=== PATIENT | female | born 1965 | race Caucasian/White ===

== ENCOUNTER → 2020-12-09 | Outpatient (CLI) | payer OTHER, SELFPAY ==
[2016-09-25 09:43] VITALS: BMI 35.9
[2020-12-09 12:53] LABS: Erythrocyte Sedimentation Rate 27 mm/hr (0-30)
[2020-12-09 12:55] LABS: Absolute Lymphocyte Count 3.91 X10^3/uL (0.83-4.51); Absolute Neutrophil Count 6.6 X10^3/uL (2.0-7.7); Basophil# 0.08 X10^3/uL; Basophil% 0.7 % (0-1); Hematocrit 43.1 % (37-47); Hemoglobin 14.2 g/dL (12.0-15.0); Lymphocyte # 3.91 X10^3/ul (0.83-4.51); Mean Corp Hgb Conc 32.9 g/dL (32-36); Mean Corpuscular Hgb 30.1 pg (27.0-32.0); Mean Corpuscular Volume 91.3 fL (81-99); Mean Platelet Vol. 10.2 fl (6.2-12.0); Monocyte% 4.5 % (0-10); NRBC Flagged by Analyzer 0 % (0-5); Neutrophil # 6.61 X10^3/uL (2.7-7.7); Neutrophil % 59.1 % (47-70); Platelet Count 333 K/mm3 (150-450); RBC Distribution Width CV 11.9 % (11.6-14.6); RBC Distribution Width SD 39.3 fl (35.1-43.9); Red Blood Count 4.72 M/mm3 (4.2-5.4); White Blood Count 11.2 K/mm3 (4.4-11.0)
[2020-12-09 13:03] LABS: AST(SGOT) 57 U/L (15-37); Alanine Aminotransfer ALT/SGPT 96 U/L (13-56); Albumin, Serum 3.5 g/dL (3.2-5.0); Alkaline Phosphatase 116 U/L (45-117); Anion Gap 7 (5-15); BUN 18 mg/dL (7-18); BUN/Creat Ratio 27.3 RATIO (10-20); Calcium,Total 9.2 mg/dL (8.5-10.1); Chloride 105 mmol/L (98-107); Creatinine, Serum 0.66 mg/dL (0.55-1.02); EST Glomerular Filtration Rate 99 mL/min (>60); Est Glom Filt Rate - Afr Amer 119 mL/min (>60); Globulin 3.5 g/dL (2.2-4.2); Glucose 238 mg/dL (74-106); Potassium 4.5 mmol/L (3.5-5.1); Sodium Level 139 mmol/L (136-145)
== END | disposition home or self-care (01) ==
LOC: LABSPEC 12:10
PROVIDERS: PCP Family Medicine; Referring Provider Internal Medicine Infectious Disease; Visit Provider Internal Medicine Infectious Disease
DX: L03.115 Cellulitis of right lower limb (principal); E11.621 Type 2 diabetes mellitus with foot ulcer
CPT/HCPCS: 80053; 85025; 85652

== ENCOUNTER → 2020-12-16 | Outpatient (CLI) | payer BC, SELFPAY ==
[2016-09-25 09:43] VITALS: BMI 35.9
[2020-12-16 11:56] LABS: Erythrocyte Sedimentation Rate 20 mm/hr (0-30)
[2020-12-16 11:58] LABS: Absolute Lymphocyte Count 2.75 X10^3/uL (0.83-4.51); Absolute Neutrophil Count 4.5 X10^3/uL (2.0-7.7); Basophil# 0.09 X10^3/uL; Basophil% 1.1 % (0-1); Hemoglobin 13.7 g/dL (12.0-15.0); Lymphocyte # 2.75 X10^3/ul (0.83-4.51); Lymphocyte % 35.1 % (19-41); Mean Corp Hgb Conc 32.6 g/dL (32-36); Mean Corpuscular Hgb 30.3 pg (27.0-32.0); Mean Corpuscular Volume 92.9 fL (81-99); Mean Platelet Vol. 10.4 fl (6.2-12.0); Monocyte# 0.41 X10^3/uL; Monocyte% 5.2 % (0-10); NRBC Flagged by Analyzer 0 % (0-5); Neutrophil # 4.54 X10^3/uL (2.7-7.7); Platelet Count 294 K/mm3 (150-450); RBC Distribution Width CV 12.1 % (11.6-14.6); RBC Distribution Width SD 41.5 fl (35.1-43.9); Red Blood Count 4.52 M/mm3 (4.2-5.4); White Blood Count 7.8 K/mm3 (4.4-11.0)
[2020-12-16 13:11] LABS: AST(SGOT) 46 U/L (15-37); Alanine Aminotransfer ALT/SGPT 75 U/L (13-56); Albumin, Serum 3.5 g/dL (3.2-5.0); Alkaline Phosphatase 92 U/L (45-117); Anion Gap 9 (5-15); BUN 23 mg/dL (7-18); BUN/Creat Ratio 42.7 RATIO (10-20); Calcium,Total 9.1 mg/dL (8.5-10.1); Chloride 104 mmol/L (98-107); Creatinine, Serum 0.54 mg/dL (0.55-1.02); EST Glomerular Filtration Rate 124 mL/min (>60); Est Glom Filt Rate - Afr Amer 151 mL/min (>60); Globulin 3.4 g/dL (2.2-4.2); Glucose 308 mg/dL (74-106); Potassium 4.4 mmol/L (3.5-5.1); Protein, Total 6.9 g/dL (6.4-8.2); Sodium Level 137 mmol/L (136-145)
== END | disposition home or self-care (01) ==
LOC: LABSPEC 11:44
PROVIDERS: PCP Family Medicine; Referring Provider Internal Medicine Infectious Disease; Visit Provider Internal Medicine Infectious Disease
DX: L03.115 Cellulitis of right lower limb (principal); E11.621 Type 2 diabetes mellitus with foot ulcer; L97.509 Non-pressure chronic ulcer of other part of unspecified foot with unspecified severity
CPT/HCPCS: 80053; 85025; 85652

== ENCOUNTER → 2020-12-23 | Outpatient (CLI) | payer BC, SELFPAY ==
[2016-09-25 09:43] VITALS: BMI 35.9
[2020-12-23 14:58] LABS: Absolute Lymphocyte Count 3.09 X10^3/uL (0.83-4.51); Absolute Neutrophil Count 5.4 X10^3/uL (2.0-7.7); Basophil# 0.08 X10^3/uL; Basophil% 0.9 % (0-1); Eosinophil# 0.04 X10^3/uL; Eosinophils% 0.4 % (0-5); Hematocrit 43.2 % (37-47); Hemoglobin 14.3 g/dL (12.0-15.0); Lymphocyte # 3.09 X10^3/ul (0.83-4.51); Lymphocyte % 33.8 % (19-41); Mean Corp Hgb Conc 33.1 g/dL (32-36); Mean Corpuscular Hgb 30.6 pg (27.0-32.0); Mean Corpuscular Volume 92.5 fL (81-99); Mean Platelet Vol. 10.7 fl (6.2-12.0); Monocyte# 0.49 X10^3/uL; Monocyte% 5.4 % (0-10); NRBC Flagged by Analyzer 0 % (0-5); Neutrophil # 5.41 X10^3/uL (2.7-7.7); Neutrophil % 59.1 % (47-70); Platelet Count 300 K/mm3 (150-450); RBC Distribution Width CV 12.4 % (11.6-14.6); RBC Distribution Width SD 41.7 fl (35.1-43.9); Red Blood Count 4.67 M/mm3 (4.2-5.4); White Blood Count 9.2 K/mm3 (4.4-11.0)
[2020-12-23 15:03] LABS: Erythrocyte Sedimentation Rate 22 mm/hr (0-30)
[2020-12-23 15:14] LABS: ALB/GLOB Ratio 1.1 RATIO (0.9-2.4); AST(SGOT) 33 U/L (15-37); Alanine Aminotransfer ALT/SGPT 68 U/L (13-56); Albumin, Serum 3.7 g/dL (3.2-5.0); Alkaline Phosphatase 94 U/L (45-117); Anion Gap 8 (5-15); BUN 23 mg/dL (7-18); BUN/Creat Ratio 38.9 RATIO (10-20); Calcium,Total 9.5 mg/dL (8.5-10.1); Chloride 105 mmol/L (98-107); Creatinine, Serum 0.59 mg/dL (0.55-1.02); EST Glomerular Filtration Rate 112 mL/min (>60); Est Glom Filt Rate - Afr Amer 135 mL/min (>60); Globulin 3.4 g/dL (2.2-4.2); Glucose 224 mg/dL (74-106); Potassium 4.3 mmol/L (3.5-5.1); Protein, Total 7.1 g/dL (6.4-8.2); Sodium Level 139 mmol/L (136-145)
== END | disposition home or self-care (01) ==
LOC: LABSPEC 14:07
PROVIDERS: PCP Family Medicine; Referring Provider Internal Medicine Infectious Disease; Visit Provider Internal Medicine Infectious Disease
DX: L03.115 Cellulitis of right lower limb (principal); E11.621 Type 2 diabetes mellitus with foot ulcer; L97.509 Non-pressure chronic ulcer of other part of unspecified foot with unspecified severity
CPT/HCPCS: 80053; 85025; 85652

== ENCOUNTER 2021-01-08 08:30 | Outpatient (RCR) | payer BC, SELFPAY ==
[2021-01-01 09:18] VITALS: BP 118/68; PULSE 94; RESP 18; TEMP 36.8
--- NOTE | 2021-01-01 09:56 | HP.PCM_ITS ---
History of Present Illness Date of Service: 01/01/21 Chief Complaint: right foot ulcer History of Wound: This 55-year-old female presents for care of right foot wound. She had surgery at [facility] in November 2020. She denies current fever, chill, nausea, vomiting. She denies delays in wound care and has been applying saline wet-to-dry to help with home health. She relates her bone biopsy that was obtained during her foot surgery was negative for osteomyelitis. She has a PICC placed and saw infectious disease specialist, Dr. Paez at [facility]. She relates she is almost complete with her IV antibiotic course. She is offloading with a surgical shoe. She takes nutritional supplementation including vitamin D and B. She denies claudication. She does have rest paresthesias. She is diabetic with an A1c of over 8%. She also has history of back injuries. Medical records reviewed from and it is noted she had right foot incision and drainage of fifth metatarsal on 12-04-20. Her surgeon was Dr. Blanchard. She is advised wearing AFO brace. It is noted she started on Bactrim and then after the surgery she was placed on IV antibiotics. Medical records including microbiology and labs and pathology results will also be requested. Allergies: Clindamycin Medications cyclo-Benzapril, NuvaRing, Advil, Cytomel, [place], armodafinil, Singulair, Synthroid, Lyrica Past medical history: diabetes and history of back surgery, ankle surgery, right knee arthroscopy Social history: former smoker and no current tobacco use; quit in 1981 Progress of Wound: Stable [facility] Home Medications Levocetirizine Dihydrochloride [Xyzal] 5 mg PO DAILY 09/25/16 [History Last Taken Unknown] armodafinil 150 mg PO BID 09/25/16 [History Last Taken Unknown] etonogestrel-ethinyl estradiol [Nuvaring Vaginal Ring] 1 ea VAGINALLY QWEEK 09/25/16 [History Last Taken Unknown] levothyroxine 150 mcg PO DAILY 09/25/16 [History Last Taken Unknown] liothyronine 25 mg PO DAILY 09/25/16 [History Last Taken Unknown] montelukast [Singulair] 10 mg PO DAILY 09/25/16 [History Last Taken Unknown] baclofen 10 mg PO TID 01/01/21 [History Last Taken Unknown] fluticasone propionate [Flonase] 1 spray INTRANASAL BID 01/01/21 [History Last Taken Unknown] Allergy/AdvReac Type Severity Reaction Status Date / Time clindamycin Allergy Hives Verified 01/01/21 09:32 pregabalin [From Lyrica] Allergy Swelling Verified 01/01/21 09:32 bee venom protein (honey bee) AdvReac Anaphylaxis Verified 01/01/21 09:32 Social History Smoking Status: Former smoker ROS Constitutional Constitutional: Denies fatigue or fever(s) Cardiovascular Cardiovascular: Reports numbness in extremities; Denies erythema on extremities, nausea or vomiting Gastrointestinal Gastrointestinal: Denies nausea or vomiting Musculoskeletal Musculoskeletal: Denies tingling Integumentary Integumentary: Reports skin ulcer Neurologic Neurologic: Reports numbness, paresthesias and radicular pain Hematologic/Lymphatic Hematologic/Lymphatic: Denies easy bleeding Vital Signs Vital Signs Vital Signs: 01/01/21 09:18 Temperature 98.2 F Temperature Source Temporal Pulse Rate 94 Respiratory Rate 18 Blood Pressure 118/68 Blood Pressure Mean 84 Blood Pressure Source Monitor Physical Exam Const alert and oriented x3 General Appearance: cooperative HEENT normocephalic Extremity Extremity Narrative: No calf tenderness Diminished pulses dp and palpable pt but present Capillary fill time less than 3 seconds to all digits bilateral Muscle wasting noted Active range of motion digits right foot with varus rotation of lesser lateral toes General Extremity: edema and no tenderness to palpation of joints or extremities; Negative for cyanosis Skin Skin Narrative: no purulence, no streaking, no odor, no infection, no erythema right foot. Skin is atrophic adjacent to the ulcer which has 100% granular base with no probing to deep tissue. No eschar. No bogginess or fluctuance on palpation. General Skin Exam: Negative for erythema Neuro Neuro Narrative: lack of normal epicritic sensation via light touch is consistent with neuropathy status Psych cooperative and affect normal Debridement Note Debridement Note Post-Debridement Measurements and Additional Note: Post-Debridement Measurements/Treatment WC - Nurse 1 - General Ulcer Assessment Start: 01/01/21 09:18 Freq: Status: Active Protocol: RUKHSANA Activity Type Activity Date Activity User E-Sign Co-Sign Detail Recorded Client Recorded Date Recorded By Document 01/01/21 09:18 DL [id number] 01/01/21 09:26 DL 01/01/21 09:18 - Today's Visit Information Type of service Follow-up Visit (Physician/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 ) Arrival Mode Ambulatory Transfer Assistance None Patient Identification Verified (Name & Yes ) Patient Requires Transmission-Based No Precautions Vital Signs Temperature (97.8 F-99.1 F) 98.2 F Temperature Source Temporal Pulse Rate (60-100) 94 Pulse Location Monitor Respiratory Rate (12-18) 18 Respiratory rate source Observation Blood Pressure (90/60-120/80) 118/68 Blood Pressure Mean 84 Source Monitor History Since Last Visit- (Skip if this is Patient's initial visit) Left Footwear Regular Shoe Right Footwear Surgical Shoe with pressure relief insole Pain Scale: 0-10 Numeric Is Patient Pain Free? Yes Communication Assessment Preferred language Syrian Oil Pumper Required No Able to Read Yes Able to Write Yes Communication Tools None Right Hearing Abillity Normal Left Hearing Abillity Normal Visual Assistive Devices None Teaching Assessment Preferences Verbal,Written, Demonstration Barriers to Learning None Readiness To Learn Good Willingness to Engage in Self Management High Activies Readiness to Engage in Self Management High Activities Anxiety Level Calm Cooperation Cooperative Perception Coherent Interest in Health Problem Asks Questions Education Importance Acknowledges Need Does Patient Smoke tobacco or other No substances Smoking Status Former smoker Is Patient Diabetic Yes Functional Assessment Recent Decline in Ability to Perform Denies Any Declines Culture/Lutheran/Elementary Instructional Coach Cultural/Lutheran Needs that may affect No Treatment Plan Would you allow our hospital child day care center worker to No meet you for the purpose of spiritual/ emotional support? Elementary Instructional Coach to contact place of religious No Teaching: Wound Center Dressing Your Wound -Person Taught Patient Discharge Instructions -Person Taught Patient *Welcome to the Wound Center -Person Taught Patient - Nurse 1 - General Ulcer Measurement Start: 01/01/21 09:18 Freq: Status: Active Protocol: Activity Type Activity Date Activity User E-Sign Co-Sign Detail Recorded Client Recorded Date Recorded By Document 01/01/21 09:18 DL [id number] 01/01/21 09:26 DL 01/01/21 09:18 Wound Center Nurse 1 #1 R Lat Foot -Current Size (cm) - Length 0.8 -Current Size (cm) - Width 0.8 -Current Size (cm) - Depth 2 -Total Square Cm 0.64 -Photo Taken Yes -Classification - Thickness Full Thickness without Exposed Support Structure -Exudate Amt Small -Exudate Type Serosanguineous -Wound Margin Distinct, Outline Attached -Granulation Amt Large (67-100%) -Granulation Quality Red -Necrosis Amt None Present (0 %) -Structure Exposed N/A -Texture (Marie-wound Skin Appearance) Scarring -Moisture (Marie-wound Skin Appearance) No Abnormality -Color (Marie-wound Skin Appearance) No Abnormality -Temperature (Marie-wound Skin No Abnormality Appearance) (Pt Warm) -Tenderness on Palpation (Marie-wound No Skin Appearance) -Ulcer Cleansing Wound Cleanser -Foul Odor after Cleansing No -Anesthetic Used 5% Lidocaine Gel WC - Nurse 2 - General Ulcer CM Notes Start: 01/01/21 09:18 Freq: Status: Active Protocol: Activity Type Activity Date Activity User E-Sign Co-Sign Detail Recorded Client Recorded Date Recorded By Document 01/01/21 09:39 NATY [id number] 01/01/21 09:47 JF 01/01/21 09:39 Wound Center Nurse 2 -Time 09:39 -Correct Patient Yes -Correct Side, Site, Position Yes -Correct Procedure Yes -Procedure Performed Yes -Type of Procedure Incision & Drainage -Clinical Debridement Subcutaneous -Tissue Removed Subcutaneous -Post Debridement (cm) - Length 0.9 -Post Debridement (cm) - Width 0.8 -Post Debridement (cm) - Depth 0.2 -Total Square (Post) (cm) 0.72 -Area of Debridement (cm) - Length 0.9 -Area of Debridement (cm) - Width 0.8 -Total Square (Area) (cm) 0.72 -Tunneling No -Undermining/Tunneling No -Circular Undermining No -Wound/Ulcer Outcome Not Healed -Ulcer Cleansing Rinsed/ Irrigated with Saline -Foul Odor after Cleansing No -Bioengineered Tissue No -Bleeding Controlled with Pressure -Offloading Yes -Type of Offloading Surgical Shoe -Treatment Response Procedure Tolerated Well -Debridement - Subq, 1st 20sq cm Yes Pain Scale: 0-10 Numeric Is Patient Pain Free? Yes Wound debrided: right foot Wound Grade/Stage: Type of Debridement: Excisional debridement Anesthesia Used: 4% Lidocaine Solution Depth: in the subcutaneous layer Percentage of wound debrided: 100 Instrument Used: #15 blade Tissue Removed: fibrous, devitalized subcutaneous, biofilm, slough Severity: Fat Layer Exposed Amount of bleeding with debridement: Mild Bleeding Controlled with: Pressure Patient tolerated procedure: Patient tolerated procedure well Assessment/Plan Assessment/Plan (1) 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: CODE(S): L97.512 - 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 (2) Type 2 diabetes mellitus with diabetic polyneuropathy: CODE(S): E11.42 - Type 2 diabetes mellitus with diabetic polyneuropathy (3) Malnutrition: CODE(S): E46 - Unspecified protein-calorie malnutrition PLAN: I reviewed and discussed his case today. Debridement was performed today as noted in the clinical panel to all of the ulcer sites. The following work up and care recommendations were made: Dressing: To change daily with Aquacel Ag covered with gauze Wash: Soap and water Offload: Continue surgical shoe use and avoid tight strap placement over the ulcer Vascular: She appears to be healing well so far. In the upcoming weeks if she demonstrates any delays in healing a noninvasive vascular study will be ordered Edema: She does not have lower extremity edema at this time Infection: She was reassured there are no clinical or systemic signs of infec tion noted today. It is noted she is completing a PICC line course of IV antibiotics per infectious disease specialist management, Dr. Paez. To complete as advised. Medical records reviewed from [facility] as well. Pain: Controlled Host factors: Her A1c levels over 8%. To optimize glucose management through diet exercise and medications under the management of her primary care physician to optimize healing and to prevent future illness. I recommend nutritional supplementation Chas to optimize healing. Imaging: Foot x-ray was ordered today Labs: CBC, CMP, hemoglobin A1c, ESR, C-reactive protein ordered and results pending I answered all the patient's questions. To return to the wound healing center in 1 week or call sooner if the patient has any questions or concerns. The medical decision making level is limited based on data including the review of prior external notes, review of a prior test, or ordering a test. 30 minutes was spent on this encounter. This included face to face and non face to face care including preparing for the visit, reviewing the history, performing the exam, counseling and providing education to the patient, family, or caregiver, ordering medications/test/ procedures if indicated as documented, communicating with other healthcare providers, documenting information in the medical record, interpreting / sharing this information when indicated as documented, and care coordination.
[2021-01-08 08:33] VITALS: BP 130/71; PULSE 80; RESP 16; TEMP 35.9
--- NOTE | 2021-01-08 09:17 | PCM.WC.PN ---
History of Present Illness Date of Service: 01/08/21 Chief Complaint: right foot ulcer History of Wound: This 55-year-old female presents for care of right foot wound. She had surgery at [facility] in November 2020. She denies current fever, chill, nausea, vomiting. She denies delays in wound care and has been applying saline wet-to-dry to help with home health. She relates her bone biopsy that was obtained during her foot surgery was negative for osteomyelitis. She has a PICC placed and saw infectious disease specialist, Dr. Paez at [facility]. She relates she is almost complete with her IV antibiotic course. She is offloading with a surgical shoe. She takes nutritional supplementation including vitamin D and B. She denies claudication. She does have rest paresthesias. She is diabetic with an A1c of over 8%. She also has history of back injuries. Since her last visit, she reports she had thick fluid squirting out of the wound with application of her silver dressing. She was concerned it was infected and called in yesterday. She is advised by nursing staff to go to the emergency room if she thought she had a rapid onset infection. She relates she is scheduled to see her surgeon tomorrow. She did not obtain the previously ordered labs and foot x-rays. She denies current redness or odor. Medical records reviewed from and it is noted she had right foot incision and drainage of fifth metatarsal on 12-04-20. Her surgeon was Dr. Blanchard. She is advised wearing AFO brace. It is noted she started on Bactrim and then after the surgery she was placed on IV antibiotics. Medical records including microbiology and labs and pathology results will also be requested. Allergies: Clindamycin Medications cyclo-Benzapril, NuvaRing, Advil, Cytomel, Hasty, armodafinil, Singulair, Synthroid, Lyrica Past medical history: diabetes and history of back surgery, ankle surgery, right knee arthroscopy Social history: former smoker and no current tobacco use; quit in 1981 Progress of Wound: Stable Objective Data Objective Data Vital Signs: Vital Signs Temp Pulse Resp BP 96.6 F L 80 16 130/71 H 01/08/21 08:33 01/08/21 08:33 01/08/21 08:33 01/08/21 08:33 Oxygen Delivery Method Room Air Physical Exam Const alert and oriented x3 General Appearance: cooperative HEENT normocephalic Extremity Extremity Narrative: No calf tenderness Diminished pulses dp and palpable pt but present Capillary fill time less than 3 seconds to all digits bilateral Muscle wasting noted Active range of motion digits right foot with varus rotation of lesser lateral toes General Extremity: edema and no tenderness to palpation of joints or extremities; Negative for cyanosis Skin Skin Narrative: no purulence, no streaking, no odor, no infection, no erythema right foot. Skin is atrophic adjacent to the ulcer which has 100% granular base with probing to deep tissue. No eschar. No bogginess or fluctuance on palpation. There is skin peeling peripherally. Adjacent skin is hairless and atrophic. General Skin Exam: Negative for erythema Neuro Neuro Narrative: lack of normal epicritic sensation via light touch is consistent with neuropathy status Psych cooperative and affect normal Debridement Note Debridement Note Post-Debridement Measurements and Additional Note: Post-Debridement Measurements/Treatment - Nurse 1 - General Ulcer Assessment Start: 01/01/21 09:18 Freq: Status: Active Protocol: RUKHSANA Activity Type Activity Date Activity User E-Sign Co-Sign Detail Recorded Client Recorded Date Recorded By Document 01/01/21 09:18 DL [id number] 01/01/21 09:26 DL Document 01/08/21 08:33 [facility] [id number] 01/08/21 08:39 [facility] 01/01/21 01/08/21 09:18 08:33 - Today's Visit Information Type of service Follow-up Visit Follow-up Visit (Physician/AIRLINE STATION AGENT (Physician/AIRLINE STATION AGENT ) ) Arrival Mode Ambulatory Ambulatory Transfer Assistance None None Patient Identification Verified (Name & Yes Yes ) Patient Requires Transmission-Based No No Precautions Finger Stick Blood Sugar(mg/dl) (if 281 indicated): Blood Sugar Stated by Patient Vital Signs Temperature (97.8 F-99.1 F) 98.2 F 96.6 F L Temperature Source Temporal Temporal Pulse Rate (60-100) 94 80 Pulse Location Monitor Monitor Respiratory Rate (12-18) 18 16 Respiratory rate source Observation Observation Oxygen Delivery Method Room Air Blood Pressure (90/60-120/80) 118/68 130/71 H Blood Pressure Mean (mm Hg) 84 90 Source Monitor Monitor Position Sitting Blood Pressure Location Left Arm Have you changed medications since your No last visit? Any new allergies or adverse reactions No Had a fall/change in ADL's that may No increase risk of falls Signs or symptoms of abuse and/or No neglect since last visit Have you been in the hospital since your No last visit? Has dressing in place as prescribed Yes Has compression in place as prescribed N/A Has offloadiing in place as prescribed Yes Experienced any changes in pain level or No management History Since Last Visit- (Skip if this is Patient's initial visit) Left Footwear Regular Shoe Regular Shoe Right Footwear Surgical Shoe Regular Shoe with pressure relief insole Pain Scale: 0-10 Numeric Is Patient Pain Free? Yes Yes Communication Assessment Preferred language Kyrgyz Testing Projects Administrator Required No Able to Read Yes Able to Write Yes Communication Tools None Right Hearing Abillity Normal Left Hearing Abillity Normal Visual Assistive Devices None Teaching Assessment Preferences Verbal,Written, Demonstration Barriers to Learning None Readiness To Learn Good Willingness to Engage in Self Management High Activies Readiness to Engage in Self Management High Activities Anxiety Level Calm Cooperation Cooperative Perception Coherent Interest in Health Problem Asks Questions Education Importance Acknowledges Need Does Patient Smoke tobacco or other No substances Smoking Status Former smoker Is Patient Diabetic Yes Functional Assessment Recent Decline in Ability to Perform Denies Any Declines Culture/Mosque/Earth Burner Cultural/Mosque Needs that may affect No Treatment Plan Would you allow our hospital crude oil treater to No meet you for the purpose of spiritual/ emotional support? Earth Burner to contact place of lutheran No Teaching: Wound Center Dressing Your Wound -Person Taught Patient Discharge Instructions -Person Taught Patient *Welcome to the Wound Center -Person Taught Patient WC - Nurse 1 - General Ulcer Measurement Start: 01/01/21 09:18 Freq: Status: Active Protocol: Activity Type Activity Date Activity User E-Sign Co-Sign Detail Recorded Client Recorded Date Recorded By Document 01/01/21 09:18 DL [id number] 01/01/21 09:26 DL Document 01/08/21 08:33 [facility] [id number] 01/08/21 08:39 [facility] 01/01/21 01/08/21 09:18 08:33 Wound Center Nurse 1 #1 R Lat Foot -Combined with other wound No -Current Size (cm) - Length 0.8 0.4 -Current Size (cm) - Width 0.8 0.9 -Current Size (cm) - Depth 2 0.3 -Total Square Cm 0.64 0.36 -Photo Taken Yes No -Epithelialization None Present -Tunneling No -Undermining/Tunneling Yes -Undermining/Tunneling Starts (O'clock 3 ) -Undermining/Tunneling Ends (O'clock) 7 -Maximum Distance (cm) 0.5 -Circular Undermining No -Classification - Thickness Full Thickness without Exposed Support Structure -Exudate Amt Small Small -Exudate Type Serosanguineous Purulent -Wound Margin Distinct, Distinct, Outline Outline Attached Attached -Granulation Amt Large (67-100%) Large (67-100%) -Granulation Quality Red Red -Slough/Fibrin Yes -Necrosis Amt None Present (0 Small (1-33%) %) -Necrotic Tissue Type Adherent Slough -Structure Exposed N/A -Texture (Marie-wound Skin Appearance) Scarring Assessed, Scarring -Moisture (Marie-wound Skin Appearance) No Abnormality Assessed -Color (Marie-wound Skin Appearance) No Abnormality Assessed, Erythema -Temperature (Marie-wound Skin No Abnormality No Abnormality Appearance) (Pt Warm) (Pt Warm) -Tenderness on Palpation (Marie-wound No No Skin Appearance) -Ulcer Cleansing Wound Cleanser Rinsed/ Irrigated with Saline -Foul Odor after Cleansing No No -Anesthetic Used 5% Lidocaine 5% Lidocaine Gel Gel WC - Nurse 2 - General Ulcer CM Notes Start: 01/01/21 09:18 Freq: Status: Active Protocol: Activity Type Activity Date Activity User E-Sign Co-Sign Detail Recorded Client Recorded Date Recorded By Document 01/01/21 09:39 [facility] [id number] 01/01/21 09:47 NAT[facility] 01/01/21 09:39 Wound Center Nurse 2 -Time 09:39 -Correct Patient Yes -Correct Side, Site, Position Yes -Correct Procedure Yes -Procedure Performed Yes -Type of Procedure Incision & Drainage -Clinical Debridement Subcutaneous -Tissue Removed Subcutaneous -Post Debridement (cm) - Length 0.9 -Post Debridement (cm) - Width 0.8 -Post Debridement (cm) - Depth 0.2 -Total Square (Post) (cm) 0.72 -Area of Debridement (cm) - Length 0.9 -Area of Debridement (cm) - Width 0.8 -Total Square (Area) (cm) 0.72 -Tunneling No -Undermining/Tunneling No -Circular Undermining No -Wound/Ulcer Outcome Not Healed -Ulcer Cleansing Rinsed/ Irrigated with Saline -Foul Odor after Cleansing No -Bioengineered Tissue No -Bleeding Controlled with Pressure -Offloading Yes -Type of Offloading Surgical Shoe -Treatment Response Procedure Tolerated Well -Debridement - Subq, 1st 20sq cm Yes Pain Scale: 0-10 Numeric Is Patient Pain Free? Yes - Nurse 3 - General Ulcer D/C NN Start: 01/01/21 09:18 Freq: Status: Active Protocol: Activity Type Activity Date Activity User E-Sign Co-Sign Detail Recorded Client Recorded Date Recorded By Document 01/01/21 10:40 [id number] 01/01/21 10:40 Document 01/08/21 09:01 [facility] [id number] 01/08/21 09:02 [facility] 01/01/21 01/08/21 10:40 09:01 Wound Care Nurse 3 #1 R Lat Foot -Ulcer Cleansing Rinsed/ Rinsed/ Irrigated with Irrigated with Saline Saline -Foul Odor after Cleansing No No -Primary Dressing Applied Aquacel AG 4x4 Aquacel AG 2x2 -Primary Dressing Covered/Secured with Dry Gauze & Dry Gauze & Roll Gauze, Roll Gauze, Secured with Secured with Tape Tape -Other Covering drsg per jn jameson rn -Aquacel AG 4x4 1 -Aquacel AG 2x2 1 Treatment Response Procedure Tolerated Well Pain Scale: 0-10 Numeric Is Patient Pain Free? Yes Yes - Visit Discharge Discharge Condition Stable Stable Ambulatory Status Ambulatory Ambulatory Transportation Private Auto Private Auto Medication Reconcilliation completed & Yes provided to patient/care provider Clinical Summary of Care Provided Yes Wound debrided: lateral right foot Wound Grade/Stage: Type of Debridement: Excisional debridement Anesthesia Used: 4% Lidocaine Solution Depth: in the subcutaneous layer Percentage of wound debrided: 100 Instrument Used: #15 blade Tissue Removed: fibrous, devitalized subcutaneous, biofilm, slough Severity: Fat Layer Exposed Amount of bleeding with debridement: Mild Bleeding Controlled with: Pressure Patient tolerated procedure: Patient tolerated procedure well Assessment/Plan Assessment/Plan (1) 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: CODE(S): L97.512 - 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 (2) Type 2 diabetes mellitus with diabetic polyneuropathy: CODE(S): E11.42 - Type 2 diabetes mellitus with diabetic polyneuropathy (3) Malnutrition: CODE(S): E46 - Unspecified protein-calorie malnutrition (4) Cellulitis of right lower limb: CODE(S): L03.115 - Cellulitis of right lower limb PLAN: I reviewed and discussed her case today today. Debridement was performed today as noted in the clinical panel to the ulcer site. The following work up and care recommendations were made: Dressing: To change daily with Aquacel Ag covered with gauze Wash: Soap and water Offload: Continue surgical shoe use and avoid tight strap placement over the ulcer Vascular: She appears to be healing well so far. In the upcoming weeks if she demonstrates any delays in healing a noninvasive vascular study will be ordered. Edema: She does not have lower extremity edema at this time Infection: She was reassured there are no clinical or systemic signs of infection noted today. However her concern of increased thick drainage with wound anteriorization is a concern. A culture was obtained today and sent for aerobic, anaerobic, and MRSA PCR. It is noted she is completing a PICC line course of IV antibiotics per infectious disease specialist management, Dr. Paez. To complete as advised. Medical records reviewed from [facility] as well. Pain: Controlled Host factors: Her A1c levels over 8%. To optimize glucose management through diet exercise and medications under the management of her primary care physician to optimize healing and to prevent future illness. I recommend nutritional supplementation Chas to optimize healing. Imaging: Foot x-ray was ordered previously and she was advised to update this. She plans to get an updated foot x-ray when she follows up with her surgeon tomorrow and that sounds reasonable. Labs: CBC, CMP, hemoglobin A1c, ESR, C-reactive protein ordered and results pending. It is noted she did not obtain this yet and she was advised to do so today. I answered all the patient's questions. To return to the wound healing center in 1 week or call sooner if the patient has any questions or concerns. She plans to follow-up with her surgeon tomorrow and this note will be sent for communication purposes as well. The medical decision making level is limited based on data including the review of prior external notes, review of a prior test, or ordering a test. 20 minutes was spent on this encounter. This included face to face and non face to face care including preparing for the visit, reviewing the history, performing the exam, counseling and providing education to the patient, family, or caregiver, ordering medications/test/ procedures if indicated as documented, communicating with other healthcare providers, documenting information in the medical record, interpreting / sharing this information when indicated as documented, and care coordination.
[2021-01-08 12:48] LABS: M R Staph aureus DNA By PCR POSITIVE (Negative)
[2021-01-08 12:49] LABS: Probe Check PASS; Staph aureus DNA By PCR POSITIVE (Negative)
== END 2021-01-21 23:59 ==
LOC: WC 08:30
PROVIDERS: PCP Family Medicine; Visit Provider Podiatrist
DX: E11.621 Type 2 diabetes mellitus with foot ulcer (principal); L97.512 Non-pressure chronic 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; Z87.891 Personal history of nicotine dependence; E11.42 Type 2 diabetes mellitus with diabetic polyneuropathy; L03.115 Cellulitis of right lower limb
CPT/HCPCS: 11042; 87070; 87075; 87077; 87186; 87205; 87640; 99213; G0463

== ENCOUNTER 2021-05-20 17:06 | Inpatient (IN) | payer BC, MEDICAID, SELFPAY ==
[2021-05-20] VITALS (10 sets, daily range): BP systolic 110–140; BP diastolic 53–90; PULSE 100–116; RESP 15–28; TEMP 36.1–37.7; O2SAT 96–98; BMI 27.2; BMI 28.8
--- NOTE | 2021-05-20 18:30 | RAD_ITS ---
STUDY: X-RAY CHEST REASON FOR EXAM: Female, 55 years old. cough TECHNIQUE: Single AP portable view of the chest. COMPARISON: None. FINDINGS: The lungs are clear and expanded. There is no demonstrated pleural abnormality. Normal size heart. Normal mediastinum and yolanda. Normal visualized pulmonary arteries. Normal visualized aortic arch and descending thoracic aorta. There are diffuse degenerative changes of the visualized thoracic spine. Normal visualized ribs, clavicles, and shoulders. There is no demonstrated abnormality of the visualized soft tissue structures of the upper abdomen. RAD/Chest 1 View (Portable) IMPRESSION: Degenerative changes, as described above. No demonstrated acute cardiopulmonary process. Electronically Signed: Erick Boston MD at 19:58 EST , Service support ,
--- NOTE | 2021-05-20 18:30 | EKG12_ITS ---
Test Reason : DYSRHYTHMIA Blood Pressure : / mmHG Vent. Rate : 110 BPM Atrial Rate : 110 BPM P-R Int : 154 ms QRS Dur : 104 ms QT Int : 376 ms P-R-T Axes : 047 009 070 degrees QTc Int : 508 ms Sinus tachycardia with frequent Premature ventricular complexes ST & T wave abnormality, consider inferior ischemia Abnormal ECG Confirmed by ANA GUZMAN, RAMSEY ([id number]), food editor PARVIN LOWE ([id number]) on 05/22/2021 8:50:36 AM Referred By: DANY Confirmed By:RAMSEY PEREZ MD
--- NOTE | 2021-05-20 18:31 | RAD_ITS ---
STUDY: X-RAY - RIGHT FOOT CLINICAL: Female, 55 years old. pain, infection TECHNIQUE: 3 view(s) of the foot. COMPARISON: None. FINDINGS: Mild to moderate degenerative arthrosis noted in the first MTP and at the calcaneocuboid and navicular articulations. Cortical plate-screw construct of the distal one third fibula noted. No visualized acute fracture. No evidence of active osteomyelitis. The bony structures are demineralized. The lateral aspect of the head of the fifth metatarsal bone is absent but the margins are corticated indicating a chronic process. Normal talus, calcaneus, and tarsal bones. Normal visualized subtalar, talonavicular, calcaneocuboid, tarsal and tarsometatarsal articulations. Moderate soft tissue swelling is present in the lower leg and foot. RAD/Foot min 3 Views IMPRESSION: Moderate soft tissue swelling Electronically Signed: Erick Boston MD at 19:57 EST , Service support ,
--- NOTE | 2021-05-20 18:32 | EX.ED.DYSGE1 ---
HPI History of Present Illness Chief Complaint: Weakness Detail of Chief Complaint: Generalized weakness Informant: patient Narrative Narrative: Patient presents the emergency department complaint of generalized weakness that started over the last several days since she is developed Covid. Patient states that she has had Covid symptoms for about 10 days. 3 days ago patient noticed increased swelling and redness to her right foot. She has had an ulceration to the great toe of the right foot for several months. 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 Patient also states that her blood sugars have been elevated over 400 despite not eating very much. Patient has been drinking fluids. She denies fever. Prior similar symptoms: No PFSH PFSH Home Medications Levocetirizine Dihydrochloride [Xyzal] 5 mg PO DAILY 09/25/16 [History Last Taken Unknown] armodafinil 150 mg PO BID 09/25/16 [History Last Taken Unknown] etonogestrel-ethinyl estradiol [Nuvaring Vaginal Ring] 1 ea VAGINALLY QWEEK 09/25/16 [History Last Taken Unknown] levothyroxine 150 mcg PO DAILY 09/25/16 [History Last Taken Unknown] liothyronine 25 mg PO DAILY 09/25/16 [History Last Taken Unknown] montelukast [Singulair] 10 mg PO DAILY 09/25/16 [History Last Taken Unknown] baclofen 10 mg PO TID 01/01/21 [History Last Taken Unknown] fluticasone propionate [Flonase] 1 spray INTRANASAL BID 01/01/21 [History Last Taken Unknown] Allergy/AdvReac Type Severity Reaction Status Date / Time clindamycin Allergy Hives Verified 05/20/21 17:09 pregabalin [From Lyrica] Allergy Swelling Verified 05/20/21 17:09 bee venom protein (honey bee) AdvReac Anaphylaxis Verified 05/20/21 17:09 Social History Smoking Status: Former smoker ROS ROS ED Constitutional Constitutional ED: Reports systems reviewed and no addt'l complaints, except as documented; Denies body ache(s), change in weight or chills Eyes Eyes: Denies acute decrease in peripheral vision, change in vision, double vision or loss of vision ENT ENT ED: Reports none; Denies ear pain, lip swelling, loss taste/smell, neck pain, otalgia or sore throat Cardiovascular Cardiovascular: Reports none; Denies abdominal pain, chest pain with activity, leg edema, lightheadedness, palpitations, rapid heart rate or syncope Respiratory/Chest Respiratory/Chest: Reports none and cough; Denies change in mental status, dry cough, dyspnea, hemoptysis, shortness of breath at rest or shortness of breath with exertion Gastrointestinal Gastrointestinal: Reports none; Denies abdominal pain, change in stool character, diarrhea, hematemesis, hematochezia, melena, rectal bleeding or vomiting Genitourinary Genitourinary ED: Reports none; Denies abdominal discomfort, anuria, dysuria, genital pain or polyuria Musculoskeletal Musculoskeletal: Reports none; Denies arthralgias, back pain, difficulty walking, extremity pain, muscle weakness or myalgias Integumentary Reports none, abscess, rash and other Details: Right foot redness and swelling Neurologic Neurologic: Reports none and weakness; Denies abnormal gait, confusion, focal weakness, frequent falls, headache(s), loss of vision, numbness, paresthesias, radicular pain or vertigo Psychiatric Psychiatric: Reports systems reviewed and no addt'l complaints, except as documented and none; Denies behavioral changes, confusion, difficulty concentrating, hallucinations, suicidal ideation, tactile hallucinations or visual hallucinations Endocrine Endocrinology: Denies none, cold intolerance, excessive sweating, fatigue or heat intolerance Hematologic/Lymphatic Hematologic/Lymphatic: Reports none; Denies anemia, easy bleeding or easy bruising Allergic/Immunologic Allergic/Immunologic ED: Denies as per HPI, none, lip swelling, mouth swelling, throat swelling, tongue swelling or hives EXAM Physical Exam Const Vital Signs: 05/20/21 17:06 05/20/21 19:06 05/20/21 20:09 Temperature 97 F L 97.3 F L Temperature Source Temporal Oral Pulse Rate 112 H 107 H 108 H Respiratory Rate 18 22 H Respiratory Pattern Blood Pressure 110/90 H 129/71 H Blood Pressure Mean 96 90 Pulse Ox 98 97 Oxygen Delivery Method Room Air Room Air 05/20/21 20:23 05/20/21 21:00 Temperature Temperature Source Pulse Rate 105 H Respiratory Rate 16 Respiratory Pattern Normal Blood Pressure Blood Pressure Mean Pulse Ox 98 Oxygen Delivery Method Room Air Positive well nourished and well developed General Appearance ED: well developed and NAD HEENT Reports TM's clear and moist mucous membranes normocephalic and atraumatic; Negative for trauma or tenderness Tympanic Membrane ED: Yes TM's clear Eyes PERRL and EOMs intact bilaterally General Eye ED: Negative for pale conjunctiva or scleral icterus Neck no lymphadenopathy, supple and no JVD General: Negative for tenderness Chest Wall inspection of chest normal and palpation of chest normal Chest: Negative for tenderness Resp normal respiratory effort and clear to auscultation bilaterally Effort and Inspection: Negative for respiratory distress or pain with movement Auscultation: Negative for rhonchi, wheezes or diminished lung sounds Cardio regular rate, regular rhythm, S1 normal heart sound, S2 normal heart sound and no murmurs Peripheral Pulses: pulses 2+ throughout GI normal to inspection, nondistended, normoactive bowel sounds, soft to palpation, non-tender, non-distended and no masses Back/Spine no CVA tenderness and no thoracic nor lumbar tenderness Extremity Extremity Narrative: Evaluation of the right foot reveals diffuse edema with erythema and cellulitic changes. Patient has skin that is peeling off the dorsum of the foot. Patient has a large blister inferior to the lateral malleolus. Patient has a wound on the plantar aspect of the great toe. General Extremety ED: Negative for edema General Extremity: Negative for edema Neuro oriented x3, CN's II-XII intact bilaterally, no sensory deficits noted and gait normal Sensorium / Orientation: awake, alert, oriented to person, oriented to place and oriented to time Motor Exam: strength 5/5 throughout and strength abnormal Psych mental status grossly normal Skin no rashes or lesions noted and no wounds MDM MDM MDM Narrative Medical decision making narrative: IV line established on arrival. Patient was given normal saline and started on Zosyn and vancomycin IV. Patient noted to have an elevated white blood cell count of 28,000. Lab work also shows signs of DKA. Patient was started on an insulin drip. CTA of the chest ordered to rule out PE as her D-dimer was elevated given her Covid diagnosis. I personally do not appreciate a PE on the CTA however official report from radiology pending. Case will be discussed with hospitalist evaluate patient for admission. Patient to be admitted for cellulitis of her right foot and DKA. IV. Lab Data Attestation: I reviewed the patient's lab results. Labs: Laboratory Results - last 24 hr 05/20/21 05/20/21 05/20/21 18:25 18:25 19:00 WBC Cancelled Corrected WBC Cancelled RBC Cancelled Hgb Cancelled Hct Cancelled MCV Cancelled MCH Cancelled MCHC Cancelled RDW Std Deviation Cancelled RDW Coeff of Amos Cancelled Plt Count Cancelled MPV Cancelled Immature Gran % (Auto) Cancelled Neut % (Auto) Cancelled Lymph % (Auto) Cancelled [place] % (Auto) Cancelled Eos % (Auto) Cancelled Baso % (Auto) Cancelled Absolute Neuts (auto) Cancelled Absolute Lymphs (auto) Cancelled Total Counted Cancelled Neutrophils % (Manual) Cancelled Band Neutrophils % Cancelled Lymphocytes % (Manual) Cancelled Monocytes % (Manual) Cancelled Eosinophils % (Manual) Cancelled Basophils % (Manual) Cancelled Metamyelocytes % Cancelled Myelocytes % Cancelled Promyelocytes % Cancelled Blast Cells % Cancelled Plasma Cell % (Manual) Cancelled Other Cells % Cancelled Nucleated RBC % Cancelled Nucleated RBCs/100 WBC Cancelled Differential Comment Cancelled Diff Path Review Cancelled Hypersegmented Neuts Cancelled Atypical Lymphocytes Cancelled Reactive Lymphocytes Cancelled Smudge Cells Cancelled Toxic Granulation Cancelled Toxic Vacuolation Cancelled Dohle Bodies Cancelled Yin Rods Cancelled Platelet Estimate Cancelled Plt Morphology Comment Cancelled RBC Morphology Cancelled Polychromasia Cancelled Hypochromasia Cancelled Poikilocytosis Cancelled Basophilic Stippling Cancelled Anisocytosis Cancelled Microcytosis Cancelled Macrocytosis Cancelled Spherocytes Cancelled Sickle Cells Cancelled Target Cells Cancelled Tear Drop Cells Cancelled Ovalocytes Cancelled Stomatocytes Cancelled Wheeler-[place] Bodies Cancelled Isela Cells Cancelled Bite Cells Cancelled Crenated Cell Cancelled Acanthocytes (Spur) Cancelled Rouleaux Cancelled Schistocytes Cancelled D-Dimer Quant (PE/DVT) 4.58 H* Sodium Cancelled Potassium Cancelled Chloride Cancelled Carbon Dioxide Cancelled Anion Gap Cancelled BUN Cancelled Creatinine Cancelled Estim Creat Clear Calc Cancelled Est GFR (MDRD) Af Amer Cancelled Est GFR (MDRD) Non-Af Cancelled BUN/Creatinine Ratio Cancelled Glucose Cancelled Lactic Acid Calcium Cancelled Total Bilirubin Cancelled AST Cancelled ALT Cancelled Alkaline Phosphatase Cancelled Troponin I High Sens Cancelled Total Protein Cancelled Albumin Cancelled Globulin Cancelled Albumin/Globulin Ratio Cancelled Urine Color Urine Clarity Urine pH Ur Specific [place] Urine Protein Urine Glucose (UA) Urine Ketones Urine Occult Blood Urine Nitrite Urine Bilirubin Urine Urobilinogen Ur Leukocyte Esterase Urine RBC Urine WBC Ur Squamous Epith Cells Urine Bacteria Urine Mucus 05/20/21 05/20/21 05/20/21 19:00 19:30 19:40 WBC 28.6 H Corrected WBC RBC 3.79 L Hgb 11.5 L Hct 34.4 L MCV 90.8 MCH 30.3 MCHC 33.4 RDW Std Deviation 47.6 H RDW Coeff of Amos 14.4 Plt Count 302 MPV 11.4 Immature Gran % (Auto) Neut % (Auto) Not Reportable Lymph % (Auto) [place] % (Auto) Eos % (Auto) Baso % (Auto) Absolute Neuts (auto) 21.7 H Absolute Lymphs (auto) 3.43 Total Counted 100 Neutrophils % (Manual) 71 H Band Neutrophils % 5 Lymphocytes % (Manual) 12 L Monocytes % (Manual) 2 Eosinophils % (Manual) Basophils % (Manual) Metamyelocytes % 4 H Myelocytes % 5 H Promyelocytes % 1 H Blast Cells % Plasma Cell % (Manual) Other Cells % Nucleated RBC % Nucleated RBCs/100 WBC Differential Comment Diff Path Review May foll Hypersegmented Neuts Atypical Lymphocytes Reactive Lymphocytes Smudge Cells Toxic Granulation Toxic Vacuolation Dohle Bodies Yin Rods Platelet Estimate Plt Morphology Comment RBC Morphology Polychromasia Hypochromasia Poikilocytosis Basophilic Stippling Anisocytosis Microcytosis Macrocytosis Spherocytes Sickle Cells Target Cells Tear Drop Cells Ovalocytes Stomatocytes [place] Bodies Isela Cells Bite Cells Crenated Cell Acanthocytes (Spur) Rouleaux Schistocytes D-Dimer Quant (PE/DVT) Sodium Potassium Chloride Carbon Dioxide Anion Gap BUN Creatinine Estim Creat Clear Calc Est GFR (MDRD) Af Amer Est GFR (MDRD) Non-Af BUN/Creatinine Ratio Glucose Lactic Acid 2.5 H* Calcium Total Bilirubin AST ALT Alkaline Phosphatase Troponin I High Sens Total Protein Albumin Globulin Albumin/Globulin Ratio Urine Color Yellow Urine Clarity Clear Urine pH 6.0 Ur Specific [place] 1.015 Urine Protein 30 H Urine Glucose (UA) 1000 H Urine Ketones 150 A* Urine Occult Blood 25 H Urine Nitrite Negative Urine Bilirubin Negative Urine Urobilinogen Normal Ur Leukocyte Esterase Negative Urine RBC 0 SEEN Urine WBC 0-5 SEEN Ur Squamous Epith Cells 0-5 SEEN Urine Bacteria 0 SEEN Urine Mucus 0 SEEN 05/20/21 05/20/21 19:40 20:23 WBC Corrected WBC RBC Hgb Hct MCV MCH MCHC RDW Std Deviation RDW Coeff of Amos Plt Count MPV Immature Gran % (Auto) Neut % (Auto) Lymph % (Auto) [place] % (Auto) Eos % (Auto) Baso % (Auto) Absolute Neuts (auto) Absolute Lymphs (auto) Total Counted Neutrophils % (Manual) Band Neutrophils % Lymphocytes % (Manual) Monocytes % (Manual) Eosinophils % (Manual) Basophils % (Manual) Metamyelocytes % Myelocytes % Promyelocytes % Blast Cells % Plasma Cell % (Manual) Other Cells % Nucleated RBC % Nucleated RBCs/100 WBC Differential Comment Diff Path Review Hypersegmented Neuts Atypical Lymphocytes Reactive Lymphocytes Smudge Cells Toxic Granulation Toxic Vacuolation Dohle Bodies Yin Rods Platelet Estimate Plt Morphology Comment RBC Morphology Polychromasia Hypochromasia Poikilocytosis Basophilic Stippling Anisocytosis Microcytosis Macrocytosis Spherocytes Sickle Cells Target Cells Tear Drop Cells Ovalocytes Stomatocytes Wheeler-[place] Bodies Isela Cells Bite Cells Crenated Cell Acanthocytes (Spur) Rouleaux Schistocytes D-Dimer Quant (PE/DVT) Sodium Cancelled 132 L Potassium Cancelled 2.8 L Chloride Cancelled 100 Carbon Dioxide Cancelled 13.0 L Anion Gap Cancelled 19 H BUN Cancelled 31 H Creatinine Cancelled 0.87 Estim Creat Clear Calc Cancelled 78.08 Est GFR (MDRD) Af Amer Cancelled 86 Est GFR (MDRD) Non-Af Cancelled 71 BUN/Creatinine Ratio Cancelled 35.6 H Glucose Cancelled 492 H* Lactic Acid Calcium Cancelled 10.1 Total Bilirubin Cancelled 0.80 AST Cancelled 17 ALT Cancelled 23 Alkaline Phosphatase Cancelled 152 H Troponin I High Sens Cancelled 7 Total Protein Cancelled 8.0 Albumin Cancelled 1.8 L Globulin Cancelled 6.2 H Albumin/Globulin Ratio Cancelled 0.3 L Urine Color Urine Clarity Urine pH Ur Specific [place] Urine Protein Urine Glucose (UA) Urine Ketones Urine Occult Blood Urine Nitrite Urine Bilirubin Urine Urobilinogen Ur Leukocyte Esterase Urine RBC Urine WBC Ur Squamous Epith Cells Urine Bacteria Urine Mucus Radiography Diagnostic Testing: Clinical Impression(s) from Imaging Studies Chest X-Ray 05/20/21 18:30 IMPRESSION: Degenerative changes, as described above. No demonstrated acute cardiopulmonary process. Electronically Signed: Erick Boston MD at 19:58 EST , Service support , Foot X-Ray 05/20/21 18:31 IMPRESSION: Moderate soft tissue swelling Electronically Signed: Erick Boston MD at 19:57 EST , Service support , 1 view chest x-ray obtained interpreted by myself as no acute disease process. Radiology in agreement. EKG Initial EKG: Attestation: I personally reviewed and interpreted this EKG as follows: Comments: Sinus rhythm with a ventricular rate of [address] changes and frequent PVCs Critical Care Time Critical care time (excluding procedures): 30-74 minutes, Including time spent:, Discussing w/Patient &/or Family/Manager Travel, Discussing w/Consultants, Arranging Admission or Transfer and - (30 minutes) Discharge Plan Triage Chief Complaint: Weakness ED Provider: Meli Everett Dx/Rx/DC Orders Clinical Impression: DKA, type 2, Cellulitis of foot, right, COVID-19, Weakness, Acute hypokalemia Prescriptions: No Action liothyronine 25 MCG tablet 25 mg PO DAILY RF: 0 levothyroxine 150 MCG tablet 150 mcg PO DAILY RF: 0 montelukast [Singulair] 10 MG tablet 10 mg PO DAILY RF: 0 etonogestrel-ethinyl estradiol [NuvaRing] 1 EACH ring 1 ea VAGINALLY QWEEK RF: 0 armodafinil 150 MG tablet 150 mg PO BID RF: 0 Levocetirizine Dihydrochloride [Xyzal] 5 MG tablet 5 mg PO DAILY RF: 0 baclofen 10 mg Tablet 10 mg PO TID RF: 0 fluticasone propionate [Flonase] 50 mcg/actuation [place],Suspension 1 spray INTRANASAL BID RF: 0 Primary Care Provider: Cuong Barros Referrals: Cuong Barros MD [Primary Care Provider] -
[2021-05-20 19:34] LABS: D-Dimer Quantitative (DVT/PE) 4.58 FEU/ug/m (0.27-0.49)
--- NOTE | 2021-05-20 19:36 | CT_ITS ---
STUDY: CTA CHEST REASON FOR EXAM: Female, 55 years old. elevated d-dimer, covid-19 RADIATION DOSAGE (If Supplied By Facility): CTDIvol = ( 13.43 ) mGy, DLP = ( 549.33 ) mGycm TECHNIQUE: The examination was performed with the intravenous administration of IV 100mL Isovue-370. Post-processing of the angiographic images was performed, with multiplanar reformation and 3D reconstruction. Individualized dose optimization techniques were used for this CT. COMPARISON: Chest x-ray dated May 20, 2021 FINDINGS: Normal enhancement of the main pulmonary artery and right and left pulmonary arteries. Normal enhancement of the bilateral peripheral pulmonary arteries. There is no demonstrated pulmonary embolism. Normal thoracic aorta and visualized great vessels. There is no demonstrated aortic dissection. Normal heart and pericardium. Normal mediastinum. Normal hilar regions. Normal visualized trachea and bronchi. The lungs are well expanded. Normal pulmonary parenchyma. No consolidation or pulmonary edema or pleural effusion is seen. Normal pleura. Normal chest wall structures. There are degenerative changes of thoracic spine. Normal visualized upper abdomen. CT/CTA Chest W/WO Contrast IMPRESSION: 1. No demonstrated pulmonary embolism or arterial dissection. 2. No consolidation or pulmonary edema or pleural effusion is seen. Electronically Signed: Erick Boston MD at 22:04 EST , Service support ,
[2021-05-20] MEDS: 0.9% Normal Saline 1,000 ML 150 ML IV (19:42)
[2021-05-20 19:48] LABS: Bacteria 0 SEEN /hpf (None Seen); Mucous, Urine 0 SEEN /hpf (<or=2+); Red Blood Cells-Urine 0 SEEN /hpf (0-5)
[2021-05-20 19:50] LABS: Hematocrit 34.4 % (37-47); Hemoglobin 11.5 g/dL (12.0-15.0); Mean Corp Hgb Conc 33.4 g/dL (32-36); Mean Corpuscular Hgb 30.3 pg (27.0-32.0); Mean Corpuscular Volume 90.8 fL (81-99); Mean Platelet Vol. 11.4 fl (6.2-12.0); POSITIVE COUNT YES; POSITIVE DIFFERENTIAL YES; POSITIVE MORPHOLOGY YES; Platelet Count 302 K/mm3 (150-450); RBC Distribution Width CV 14.4 % (11.6-14.6); RBC Distribution Width SD 47.6 fl (35.1-43.9); Red Blood Count 3.79 M/mm3 (4.2-5.4); White Blood Count 28.6 K/mm3 (4.4-11.0)
[2021-05-20 19:57] LABS: Color, Urine Yellow (Yellow); Glucose, Dipstick 1000 mg/dl (Normal); Leukocyte Esterase-Dipstick Negative /ul (Negative); Nitrite-Dipstick Negative (Negative); Occult Blood-Urine 25 /ul (Negative); Protein-Dipstick 30 mg/dl (Negative); Specific Gravity, Urine 1.015 (1.002-1.030); Urine Bilirubin Dipstick Negative (Negative); Urine Clarity Clear (Clear); Urine Urobilinogen Normal (Normal)
[2021-05-20 19:58] LABS: Lactic Acid 2.5 mmol/L (0.4-1.9)
[2021-05-20 20:04] LABS: Differential Indicated MANUAL DIFF
[2021-05-20 20:05] LABS: Ketone-Dipstick 150 mg/dl (Negative); Squamous Epithelial Cells - UA 0-5 SEEN /hpf (5-10); White Blood Cells 0-5 SEEN /hpf (0-5)
[2021-05-20 20:39] LABS: Neutrophil-Band 5 % (0-5); Neutrophil-Segmented 71 % (47-70); Total Cells Counted 100 (MANUAL DIFF)
[2021-05-20 20:40] LABS: Lymphocyte 12 % (19-41); Metamyelocyte 4 % (0-1); Monocyte 2 % (0-10); Myelocyte 5 % (0-0); Promyelocyte 1 % (0-0)
[2021-05-20 20:42] LABS: Absolute Lymphocyte Count 3.43 X10^3/uL (0.83-4.51); Absolute Neutrophil Count 21.7 X10^3/uL (2.0-7.7)
[2021-05-20 21:02] LABS: ALB/GLOB Ratio 0.3 RATIO (0.9-2.4); AST(SGOT) 17 U/L (15-37); Alanine Aminotransfer ALT/SGPT 23 U/L (13-56); Albumin, Serum 1.8 g/dL (3.2-5.0); Alkaline Phosphatase 152 U/L (45-117); Anion Gap 19 (5-15); BUN 31 mg/dL (7-18); BUN/Creat Ratio 35.6 RATIO (10-20); Calcium,Total 10.1 mg/dL (8.5-10.1); Chloride 100 mmol/L (98-107); Creatinine, Serum 0.87 mg/dL (0.55-1.02); EST Glomerular Filtration Rate 71 mL/min (>60); Est Glom Filt Rate - Afr Amer 86 mL/min (>60); Estimated Creatinine Clearance 78.08 ml/min; Globulin 6.2 g/dL (2.2-4.2); Glucose 492 mg/dL (74-106); Potassium 2.8 mmol/L (3.5-5.1); Sodium Level 132 mmol/L (136-145); Troponin-I HS 7 pg/mL (3.0-54.0)
--- NOTE | 2021-05-20 21:07 | EKG12_ITS ---
Test Reason : DYSRHYTHMIA Blood Pressure : / mmHG Vent. Rate : 110 BPM Atrial Rate : 110 BPM P-R Int : 146 ms QRS Dur : 100 ms QT Int : 362 ms P-R-T Axes : 046 017 065 degrees QTc Int : 489 ms Sinus tachycardia with frequent Premature ventricular complexes Nonspecific ST and T wave abnormality Abnormal ECG Confirmed by ANA GUZMAN, RAMSEY ([id number]), index editor PARVIN LOWE ([id number]) on 05/22/2021 8:51:08 AM Referred By: DANY Confirmed By:RAMSEY PEREZ MD
[2021-05-20 21:50] LABS: Hematocrit 30.4 % (37-47); Hemoglobin 10.2 g/dL (12.0-15.0); Mean Corp Hgb Conc 33.6 g/dL (32-36); Mean Corpuscular Hgb 30.2 pg (27.0-32.0); Mean Corpuscular Volume 89.9 fL (81-99); POSITIVE COUNT YES; POSITIVE MORPHOLOGY YES; Platelet Count 323 K/mm3 (150-450); RBC Distribution Width CV 13.9 % (11.6-14.6); RBC Distribution Width SD 45.7 fl (35.1-43.9); Red Blood Count 3.38 M/mm3 (4.2-5.4); White Blood Count 25.9 K/mm3 (4.4-11.0)
--- NOTE | 2021-05-20 21:54 | CT_ITS ---
STUDY: CT RIGHT FOOT REASON FOR EXAM: Female, 55 years old. right foot sx in Oct, current swelling, redness, peeling, concern for injection, elevated wbc, pt is covid positive RADIATION DOSAGE (If Supplied By Facility): CTDIvol = ( 15.35 ) mGy, DLP = ( 496.98 ) mGycm TECHNIQUE: Thin section transaxial imaging of the foot was obtained, with sagittal and coronal reconstructed images. Individualized dose optimization techniques were used for this CT. COMPARISON: Right foot x-ray dated May 20, 2021 FINDINGS: There is moderate soft tissue swelling of the lower leg and foot. No visualized subcutaneous gas. A moderate amount of subcutaneous fluid overlies the dorsum of the first through third TMT articulations of the midfoot but the fluid is not encapsulated and likely typical abscess. The fluid could be infected but could also be serous in nature given the moderate soft tissue swelling. No subcutaneous gas is present. No open wound or sinus tract is visualized. The muscles of the foot are diffusely atrophic compatible with chronic neuropathy, but there is also diffuse edema throughout the muscle fibers. There is a healed fracture deformity of the distal one third fibula with a cortical plate-screw construct. No visualized hardware complications or evidence of loosening. No cortical erosion or bony destruction or periosteal reaction is seen in the osseous structures to suggest active osteomyelitis. Moderate cortical spurring and multiple loose bodies are consistent with changes related to mild Charcot arthropathy/osteoarthritis. No visualized erosions. Unfused apophysis on the dorsal surface and anterior process of the talus mentioned. There is severe narrowing of the middle talocalcaneal articulation. Normal talus, calcaneus, and tarsal bones. Normal metatarsi. Normal metatarsophalangeal joint of the great toe. Normal tibial and fibular sesamoid bones. Normal interphalangeal joint of the great toe. Normal phalanges of the great toe. Normal second through fifth metatarsophalangeal joints. Normal interphalangeal joints and phalanges of the lesser toes. IMPRESSION: Findings are consistent with moderate cellulitis and probable infectious myositis with a moderate amount of subcutaneous fluid overlying the mid to medial aspect of the midfoot and diffusely edematous muscles. If symptoms are unresolved consider rhabdomyolysis or ischemic myopathy 1. There is moderate soft tissue swelling of the lower leg and foot. No visualized subcutaneous gas. 2. A moderate amount of subcutaneous fluid overlies the dorsum of the first through third TMT articulations of the midfoot but the fluid is not encapsulated and likely typical abscess. The fluid could be infected but could also be serous in nature given the moderate soft tissue swelling. 3. No subcutaneous gas is present. No open wound or sinus tract is visualized. 4. The muscles of the foot are diffusely atrophic compatible with chronic neuropathy, but there is also diffuse edema throughout the muscle fibers. Electronically Signed: Erick Boston MD at 23:44 EST , Service support , CT/Extremity Lower without Contra
[2021-05-20] MEDS: Potassium Chloride 10mEq/100mL 10 MEQ/100 ML IV.SOLN. 100 MEQ IV BOLUS ×2 (22:02→23:05)
[2021-05-20 22:06] LABS: Bedside Glucose 480 mg/dL (70-110)
[2021-05-20 22:08] LABS: Anion Gap 16 (5-15); BUN 22 mg/dL (7-18); BUN/Creat Ratio 34.1 RATIO (10-20); Calcium,Total 6.9 mg/dL (8.5-10.1); Chloride 111 mmol/L (98-107); Creatinine, Serum 0.65 mg/dL (0.55-1.02); EST Glomerular Filtration Rate 101 mL/min (>60); Est Glom Filt Rate - Afr Amer 122 mL/min (>60); Estimated Creatinine Clearance 104.51 ml/min; Glucose 360 mg/dL (74-106); Potassium 2.3 mmol/L (3.5-5.1); Sodium Level 139 mmol/L (136-145)
--- NOTE | 2021-05-20 22:08 | MRI_ITS ---
STUDY: MRI RIGHT MIDFOOT REASON FOR EXAM: Female, 55 years old. RIGHT great toe wound, right lateral and superior foot R Foot Diabetic foot ulceration TECHNIQUE: Standardized fat and water weighted pulse sequences were obtained in all 3 orthogonal planes. COMPARISON: Right foot x-ray dated May 20, 2021 FINDINGS: A small 2.22 cm ovoid fluid collection is present in the subcutaneous tissues over the dorsum and base of the proximal phalanx of the great toe. Mild patchy reactive edema is present in the shafts of the second, third, and to a lesser extent fourth metatarsal bones. Appearance of mild acute on chronic osteomyelitis for infection of the second and third metatarsal bones which are surrounded by fluid and shows areas of focal cortical thinning and alternating thickening/periosteal thickening. There is moderate degenerative narrowing and osteoarthritis of the IP and MTP joint of the great toe. Reidentification of a large 6.1 x 1.3 cm lobular mildly complex fluid collection in the subcutaneous tissues over the dorsum of the midfoot and first through third TMT articulations. Components of the dorsal fluid collection extending between the first and second intermetatarsal spaces into the plantar aspect of the first and second metatarsal bones. Moderate to severe degenerative narrowing and osteoarthritis of the first through third TMT articulations and intertarsal articulations noted. Some subtle chronic appearing cortical erosions are seen in the tarsal bones consistent with mild Charcot arthropathy. A small ankle joint effusion is present. Unfused ossicle/apophysis at the dorsal aspect of the head of the talus reidentified. Additional patchy chronic reactive signal is seen in the calcaneus. Normal Lisfranc ligament. Normal second and third tarsometatarsal articulations. Normal cuboid fourth and cuboid fifth tarsometatarsal articulation. Normal tibialis anterior tendon. Normal extensor hallucis longus tendon. Normal extensor digitorum longus tendons. Normal peroneus longus tendon and distal insertion. Normal peroneus brevis tendon and distal insertion. There is diffuse atrophy of the intrinsic muscles of the foot consistent with a peripheral neuropathy. Additional bright signal within the muscles suggesting nonspecified myositis. Moderate diffuse subcutaneous edema is present. IMPRESSION: Mild acute on chronic osteomyelitis of the second and third metatarsal bones. Complex abnormalities of the foot likely a combination of diabetic osteoarthropathy and Charcot arthropathy. Large flocculent fluid collection of the midfoot could be infectious or inflammatory in nature or serous. Direct aspiration and pathologic evaluation may aid in determining which of these processes are present. 1. Mild patchy reactive edema is present in the shafts of the second, third, and to a lesser extent fourth metatarsal bones. Appearance of mild acute on chronic osteomyelitis for infection of the second and third metatarsal bones which are surrounded by fluid and shows areas of focal cortical thinning and alternating thickening/periosteal thickening. 2. A small 2.22 cm ovoid fluid collection is present in the subcutaneous tissues over the dorsum and base of the proximal phalanx of the great toe. 3. There is moderate degenerative narrowing and osteoarthritis of the IP and MTP joint of the great toe. 4. Reidentification of a large 6.1 x 1.3 cm lobular mildly complex fluid collection in the subcutaneous tissues over the dorsum of the midfoot and first through third TMT articulations. Components of the dorsal fluid collection extending between the first and second intermetatarsal spaces into the plantar aspect of the first and second metatarsal bones. 5. Moderate to severe degenerative narrowing and osteoarthritis of the first through third TMT articulations and intertarsal articulations noted. 6. Some subtle chronic appearing cortical erosions are seen in the tarsal bones consistent with mild Charcot arthropathy. Electronically Signed: Erick Boston MD at 19:00 EST , Service support , MRI/Lower Ext/No Jt/w/o
--- NOTE | 2021-05-20 22:09 | HP.PCM.HOS_ITS ---
HPI - General General Date of Admission: 05/20/21 Date of Service: 05/20/21 Chief Complaint: Generalized weakness HPI Narrative FREEMAN MOCTEZUMA, is a 55 F who presented to the emergency department [facility] on 05/20/2021 with a chief complaint of generalized weakness. She evidently developed Covid-like symptoms a week ago Wednesday with intermittent cough, fever, chills, malaise, decreased p.o. intake, and nausea without vomiting. She incidentally got her booster Covid vaccine on the same day prior to developing symptoms. She was tested on Wednesday of last week for COVID-19 and had a positive result. She states that she is not really eaten anything in about 10 days but is having some polyuria and polydipsia. About 3 days ago she noticed an increase in swelling and redness of her right foot. She has had a chronic ulceration to the hallux for several months and had been following with a wanigan clerk in [place] but she evidently received and noticed that he has left and has not followed up since. She states that she is not regularly checking her sugars but when she has these been elevated at over 400 despite her decreased p.o. intake. She department she was afebrile throughout her stay but did have some mild tachycardia, her blood pressures were within normal range, her respiratory effort was normal and her oxygen saturations were 97 to 98% on room air throughout her hospital ED stay. Her CBC showed a markedly elevated white count at 28.6 thousand and a significant left shift and mild bandemia. Her D-dimer was found to be elevated at 4.54 but a CTA was performed and was negative for any pulmonary embolus. Her BMP showed pseudohyponatremia as her blood glucose was elevated at 492, hypokalemia with a potassium of 2.8, a serum bicarbonate of 13 and anion gap of 19 and a BUN of 31 with a serum creatinine of 0.87. Her liver enzymes were normal. A high- sensitivity troponin was obtained and found to be 7. She had moderate amount of acetone in her blood. She was treated with vancomycin and Zosyn, started on an insulin drip, and given IV fluids in the emergency department and request for admission to the ICU was made. [facility] Medical History Allergies History of MRSA infection Hypothyroidism Sleep disorder Type 2 diabetes mellitus with diabetic polyneuropathy Home Medications Levocetirizine Dihydrochloride [Xyzal] 5 mg PO DAILY 09/25/16 [History Last Taken Unknown] armodafinil 150 mg PO BID 09/25/16 [History Last Taken Unknown] etonogestrel-ethinyl estradiol [Nuvaring Vaginal Ring] 1 ea VAGINALLY QWEEK 09/25/16 [History Last Taken Unknown] levothyroxine 150 mcg PO DAILY 09/25/16 [History Last Taken Unknown] liothyronine 25 mg PO DAILY 09/25/16 [History Last Taken Unknown] montelukast [Singulair] 10 mg PO DAILY 09/25/16 [History Last Taken Unknown] baclofen 10 mg PO TID 01/01/21 [History Last Taken Unknown] fluticasone propionate [Flonase] 1 spray INTRANASAL BID 01/01/21 [History Last Taken Unknown] Allergy/AdvReac Type Severity Reaction Status Date / Time clindamycin Allergy Hives Verified 05/20/21 17:09 pregabalin [From Lyrica] Allergy Swelling Verified 05/20/21 17:09 bee venom protein (honey bee) AdvReac Anaphylaxis Verified 05/20/21 17:09 Family History (Updated 05/20/21 @ 22:[address] Siobhan Huang DO) Other Diabetes Heart disease Hypertension Surgical History (Updated 05/20/21 @ 22:[address] Siobhan Huang DO) History of ankle surgery Social History (Updated 05/20/21 @ 22:[address] Siobhan Huang DO) Smoking Status: Former smoker alcohol intake: current alcohol intake frequency: holidays/special occasions only substance use type: does not use ROS Constitutional Constitutional: Reports anorexia, chills, fatigue, fever(s), malaise and weakness; Denies change in weight, night sweats or other Eyes Eyes: Denies blurry vision, change in eye color, change in vision, discharge from eye(s), double vision, erythema, eye pain, loss of vision or other ENT HEENT: Denies abnormal hearing, dysphagia, ear pain, epistaxis, headache(s), hearing loss, nasal congestion, nasal discharge, post nasal drip, sinus pressure, sore throat or other Cardiovascular Cardiovascular: Reports edema and rapid heart rate; Denies chest pain, claudication, dyspnea on exertion, lightheadedness, orthopnea, palpitations, paroxysmal nocturnal dyspnea, syncope or other Respiratory/Chest Respiratory/Chest: Reports cough; Denies dyspnea, excessive phlegm production, hemoptysis, productive cough, shortness of breath at rest, shortness of breath with exertion, wheezing or other Gastrointestinal Gastrointestinal: Reports nausea; Denies abdominal pain, coffee ground emesis, constipation, diarrhea, dyspepsia, hematemesis, hematochezia, loose stools, melena, vomiting or other Genitourinary Genitourinary: Reports urinary frequency; Denies burning urination, difficulty urinating, dysuria, hematuria, nocturia, urinary hesitancy, urinary incontinence , urinary urgency or other Musculoskeletal Musculoskeletal: Denies arthralgias, back pain, joint pain, joint stiffness, joint swelling, myalgias, neck pain or other Neurologic Neurologic: Reports paresthesias RLE and LLE; Denies abnormal gait, abnormal speech, confusion, disequilibrium, dizziness, focal weakness, headache(s), nu mbness, seizure-like activity, seizures, syncope, tingling, tremor(s) or other Psychiatric Psychiatric: Denies anxiety, depression, homicidal ideation, suicidal ideation or other Endocrine Endocrinology: Reports polydipsia and polyuria; Denies change in body appearance, cold intolerance, excessive sweating, heat intolerance or other Hematologic/Lymphatic Hematologic/Lymphatic: Denies anemia, easy bleeding, easy bruising, lymphadenopathy or other Allergic/Immunologic Allergic/Immunologic: Denies rhinitis, hives, eczemia, asthma or other Vital Signs Vital Signs Vital Signs: 05/20/21 17:06 05/20/21 19:06 05/20/21 20:09 Temperature 97 F L 97.3 F L Temperature Source Temporal Oral Pulse Rate 112 H 107 H 108 H Respiratory Rate 18 22 H Respiratory Pattern Blood Pressure 110/90 H 129/71 H Blood Pressure Mean 96 90 Pulse Ox 98 97 Oxygen Delivery Method Room Air Room Air 05/20/21 20:23 05/20/21 21:00 Temperature Temperature Source Pulse Rate 105 H Respiratory Rate 16 Respiratory Pattern Normal Blood Pressure Blood Pressure Mean Pulse Ox 98 Oxygen Delivery Method Room Air Weight Weight: 86.183 kg Body Mass Index (BMI) 27.2 Physical Exam Const alert and oriented x3 Constitutional Narrative: Upper middle-aged white female lying in bed, appears ill but nontoxic, no acute distress, nursing at bedside General Appearance: cooperative HEENT normocephalic, head/scalp atraumatic and hearing grossly normal bilaterally HEENT Narrative: Dry mucous membranes, Mallampati 2, dentition is good, no thrush Eyes PERRL, EOMs intact bilaterally and conjunctivae normal Eyes Narrative: No scleral icterus Neck no lymphadenopathy, supple, no JVD and no carotid bruits Neck Narrative: Trachea midline, no thyroid enlargement Resp normal respiratory effort, no retractions, no use of accessory muscles and clear to auscultation bilaterally Auscultation: Negative for crackles, rales, rhonchi or wheezes Cardio regular rhythm, S1 normal heart sound, S2 normal heart sound, no murmurs, no rub, no gallops, no clicks and no JVD Cardio Narrative: Mild tachycardia GI normal to inspection, nondistended, normoactive bowel sounds, soft to palpation, non-tender and non-distended Extremity Extremity Narrative: Right lower extremity edema with skin changes as noted in skin exam, good cap refill, no cyanosis or clubbing Peripheral Pulses: Yes pulses 2+ throughout Skin skin turgor normal, no jaundice, no petechiae and no mottling Skin Narrative: Right great toe with medial ulceration, right lower extremity with erythema and warmth, small abscesses noted on the dorsum and dorsal lateral aspect of right foot Neuro oriented x3, CN's II-XII intact bilaterally, moves all extremities and no focal motor deficits Neuro Narrative: Decreased sensation bilateral distal lower extremities from knee down, generalized weakness Sensorium / Orientation: awake and alert Psych affect normal Psych Narrative: Appropriately interactive but peers at that she is not feeling well Results Lab / Micro Data Attestation: I reviewed the patient's lab results. Result Diagrams: 05/20/21 19:40 05/20/21 21:40 Labs: Laboratory Results - last 24 hr 05/20/21 18:25: WBC Cancelled, Corrected WBC Cancelled, RBC Cancelled, Hgb Cancelled, Hct Cancelled, MCV Cancelled, MCH Cancelled, MCHC Cancelled, RDW Std Deviation Cancelled, RDW Coeff of Amos Cancelled, Plt Count Cancelled, MPV Cancelled, Immature Gran % (Auto) Cancelled, Neut % (Auto) Cancelled, Lymph % (Auto) Cancelled, [place] % (Auto) Cancelled, Eos % (Auto) Cancelled, Baso % (Auto) Cancelled, Absolute Neuts (auto) Cancelled, Absolute Lymphs (auto) Cancelled, Total Counted Cancelled, Neutrophils % (Manual) Cancelled, Band Neutrophils % Cancelled, Lymphocytes % (Manual) Cancelled, Monocytes % (Manual) Cancelled, Eosinophils % (Manual) Cancelled, Basophils % (Manual) Cancelled, Metamyelocytes % Cancelled, Myelocytes % Cancelled, Promyelocytes % Cancelled, Blast Cells % Cancelled, Plasma Cell % (Manual) Cancelled, Other Cells % Cancelled, Nucleated RBC % Cancelled, Nucleated RBCs/100 WBC Cancelled, Differential Comment Cancelled, Diff Path Review Cancelled, Hypersegmented Neuts Cancelled, Atypical Lymphocytes Cancelled, Reactive Lymphocytes Cancelled, Smudge Cells Cancelled, Toxic Granulation Cancelled, Toxic Vacuolation Cancelled, Dohle Bodies Cancelled, Yin Rods Cancelled, Platelet Estimate Cancelled, Plt Morphology Comment Cancelled, RBC Morphology Cancelled, Polychromasia Cancelled, Hypochromasia Cancelled, Poikilocytosis Cancelled, Basophilic Stippling Cancelled, Anisocytosis Cancelled, Microcytosis Cancelled, Macrocytosis Cancelled, Spherocytes Cancelled, Sickle Cells Cancelled, Target Cells Cancelled, Tear Drop Cells Cancelled, Ovalocytes Cancelled, Stomatocytes Cance lled, Wheeler-Koppel Bodies Cancelled, [place] Cells Cancelled, Bite Cells Cancelled, Crenated Cell Cancelled, Acanthocytes (Spur) Cancelled, Rouleaux Cancelled, Schistocytes Cancelled 05/20/21 18:25: Sodium Cancelled, Potassium Cancelled, Chloride Cancelled, Carbon Dioxide Cancelled, Anion Gap Cancelled, BUN Cancelled, Creatinine Cancelled, Estim Creat Clear Calc Cancelled, Est GFR (MDRD) Af Amer Cancelled, Est GFR (MDRD) Non-Af Cancelled, BUN/Creatinine Ratio Cancelled, Glucose Cancelled, Calcium Cancelled, Total Bilirubin Cancelled, AST Cancelled, ALT Cancelled, Alkaline Phosphatase Cancelled, Troponin I High Sens Cancelled, Total Protein Cancelled, Albumin Cancelled, Globulin Cancelled, Albumin/Globulin Ratio Cancelled 05/20/21 19:00: D-Dimer Quant (PE/DVT) 4.58 H* 05/20/21 19:00: Lactic Acid 2.5 H* 05/20/21 19:30: Urine Color Yellow, Urine Clarity Clear, Urine pH 6.0, Ur Specific [place] 1.015, Urine Protein 30 H, Urine Glucose (UA) 1000 H, Urine Ketones 150 A*, Urine Occult Blood 25 H, Urine Nitrite Negative, Urine Bilirubin Negative, Urine Urobilinogen Normal, Ur Leukocyte Esterase Negative, Urine RBC 0 SEEN, Urine WBC 0-5 SEEN, Ur Squamous Epith Cells 0-5 SEEN, Urine Bacteria 0 SEEN, Urine Mucus 0 SEEN 05/20/21 19:40: WBC 28.6 H, RBC 3.79 L, Hgb 11.5 L, Hct 34.4 L, MCV 90.8, MCH 30.3, MCHC 33.4, RDW Std Deviation 47.6 H, RDW Coeff of Amos 14.4, Plt Count 302, MPV 11.4, Neut % (Auto) Not Reportable, Absolute Neuts (auto) 21.7 H, Absolute Lymphs (auto) 3.43, Total Counted 100, Neutrophils % (Manual) 71 H, Band Neutrophils % 5, Lymphocytes % (Manual) 12 L, Monocytes % (Manual) 2, Metamyelocytes % 4 H, Myelocytes % 5 H, Promyelocytes % 1 H, Diff Path Review September05/20/21 19:40: Sodium Cancelled, Potassium Cancelled, Chloride Cancelled, Car bon Dioxide Cancelled, Anion Gap Cancelled, BUN Cancelled, Creatinine Cancelled, Estim Creat Clear Calc Cancelled, Est GFR (MDRD) Af Amer Cancelled, Est GFR (MDRD) Non-Af Cancelled, BUN/Creatinine Ratio Cancelled, Glucose Cancelled, Calcium Cancelled, Total Bilirubin Cancelled, AST Cancelled, ALT Cancelled, Alkaline Phosphatase Cancelled, Troponin I High Sens Cancelled, Total Protein Cancelled, Albumin Cancelled, Globulin Cancelled, Albumin/Globulin Ratio Cancelled 05/20/21 20:23: Sodium 132 L, Potassium 2.8 L, Chloride 100, Carbon Dioxide 13.0 L, Anion Gap 19 H, BUN 31 H, Creatinine 0.87, Estim Creat Clear Calc 78.08, Est GFR (MDRD) Af Amer 86, Est GFR (MDRD) Non-Af 71, BUN/Creatinine Ratio 35.6 H, Glucose 492 H*, Calcium 10.1, Total Bilirubin 0.80, AST 17, ALT 23, Alkaline Phosphatase 152 H, Troponin I High Sens 7, Total Protein 8.0, Albumin 1.8 L, Globulin 6.2 H, Albumin/Globulin Ratio 0.3 L 05/20/21 21:40: Sodium 139, Potassium 2.3 L*, Chloride 111 H, Carbon Dioxide 12.0 L, Anion Gap 16 H, BUN 22 H, Creatinine 0.65, Estim Creat Clear Calc 104.51, Est GFR (MDRD) Af Amer 122, Est GFR (MDRD) Non-Af 101, BUN/Creatinine Ratio 34.1 H, Glucose 360 H, Calcium 6.9 L 05/20/21 21:40: Acetone Level MODERATE H 05/20/21 21:52: POC Glucose 480 H* Radiology Impression Chest X-Ray 05/20/21 18:30 IMPRESSION: Degenerative changes, as described above. No demonstrated acute cardiopulmonary process. Electronically Signed: Erick Boston MD at 19:58 EST , Service support , Foot X-Ray 05/20/21 18:31 IMPRESSION: Moderate soft tissue swelling Electronically Signed: Erick Boston MD at 19:57 EST , Service support , Chest CTA 05/20/21 19:36 IMPRESSION: 1. No demonstrated pulmonary embolism or arterial dissection. 2. No consolidation or pulmonary edema or pleural effusion is seen. Electronically Signed: Erick Boston MD at 22:04 EST , Service support , Assessment & Plan Assessment/Plan (1) DKA, type 2: (2) Cellulitis of foot, right: (3) COVID-19: (4) Acute hypokalemia: (5) 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: (6) Malnutrition: (7) Leukocytosis: (8) Elevated d-dimer: (9) Weakness: (10) Lactic acidosis: (11) High anion gap metabolic acidosis: (12) Hypocalcemia: PLAN: Right lower extremity cellulitis/diabetic foot wounds/abscesses -CT of right lower extremity is pending to further evaluate abscess location and to evaluate for gas formation -Concern for osteo of the right great toe -Check MRI -Check ESR/CRP although I do anticipate both of these will be elevated with her Covid infection -MRSA PCR -Wound cultures -Blood cultures x2 -Vancomycin and Zosyn -Consult podiatry -Consult wound nurse -Suspect patient will need I&D and debridement of the great toe DKA -Patient states she is only been a diabetic for 2 years but I do anticipate she has had diabetes longer than this as she already has diabetic neuropathy from her knees to her feet -Check hemoglobin A1c -Insulin drip and DKA order set -Patient does not appear to be in antihyperglycemics at home per our medical records at the time of admission -She indicates that there have been some insurance issues with regards to this -Start diabetic diet once p.o. intake is allowable Anion gap metabolic acidosis -Secondary to DKA and lactic acidosis -Follow every 4 hour BMPs -Should resolve with treatment of DKA Lactic acidosis -Mild -2.5 on admission -Suspect related to infection/Covid/DKA -Should resolve quickly with hydration Acute hypokalemia -Patient was given 40 mEq in the emergency department -I will add another 60 mEq p.o. -Every 4 hours BMPs -Continue replacement as needed as I do anticipate her potassium will drop further with being on insulin drip -Check magnesium Acute hypocalcemia -Calcium was 6.9 -2 g calcium gluconate bolus given -Repeat in a.m. Acute COVID-19 infection -Patient has had decreased p.o. intake fatigue and fevers at home -No respiratory issues -Day 10 of symptoms today -Received her booster a week ago Wednesday but developed symptoms the same day as she got her booster and I do therefore anticipate that she had Covid prior to her booster being given -No current need for Decadron or remdesivir given the patient is on room air and stable -Encourage incentive spirometry -Monitor clinically Elevated D-dimer -Suspect related to acute Covid infection -Patient has no pulmonary embolus on CTA of the chest DM-2 -Suspect uncontrolled -Patient is not currently on any medications per the MAR -Evidently there is been some issues with her obtaining medications and insurance -This management is been consulted -Anticipate patient may need discharged on insulin Hypothyroidism -Continue levothyroxine -Check TSH Seasonal allergies -Continue home medications Sleep disorder -Continue home medications DVT prophylaxis -30 mg of Lovenox twice daily CODE STATUS -Full code verified emergency department admission Charges/Coding Visit Charges Inpatient E&M: 83552 Init Hosp L3
[2021-05-20 22:16] LABS: Differential Indicated MANUAL DIFF
--- NOTE | 2021-05-20 22:25 | ED.RN ---
Finger stick glucose 480. Per Dr. Huang continue with current order.
[2021-05-20 22:37] LABS: Lymphocyte 8 % (19-41); Metamyelocyte 2 % (0-1); Monocyte 6 % (0-10); Myelocyte 2 % (0-0); Neutrophil-Band 8 % (0-5); Neutrophil-Segmented 74 % (47-70); Total Cells Counted 100 (MANUAL DIFF)
[2021-05-20 22:38] LABS: Absolute Lymphocyte Count 2.07 X10^3/uL (0.83-4.51); Absolute Neutrophil Count 21.2 X10^3/uL (2.0-7.7)
[2021-05-20 23:06] LABS: Reflex Lactate? Y
[2021-05-20 23:11] LABS: Erythrocyte Sedimentation Rate 58 mm/hr (0-30)
--- NOTE | 2021-05-20 23:21 | PCM.RX.CS ---
Consult Pharmacy has been consulted to manage selected antiobiotic: Vancomycin Type of Consult: New start Suspected Infection: Skin/Soft tissue Prior Doses of Antibiotics Received/Current Regimen: Medications Vancomycin HCl (Vancomycin) 1,000 mg in 200 mls @ 200 mls/hr IV Q8H ORTIZ Discontinued Medications Vancomycin HCl 1,250 mg/ (Sodium Chloride) 275 mls @ 167 mls/hr IV X1 ONE Stop: 05/20/21 20:08 Last Admin: 05/20/21 22:02 Dose: Infused Labs: Sodium 139 mmol/L (136-145) 05/20/21 21:40 Potassium 2.3 mmol/L (3.5-5.1) L* 05/20/21 21:40 Chloride 111 mmol/L (98-107) H 05/20/21 21:40 Carbon Dioxide 12.0 mmol/L (21.0-32.0) L 05/20/21 21:40 Anion Gap 16 (5-15) H 05/20/21 21:40 BUN 22 mg/dL (7-18) H 05/20/21 21:40 Creatinine 0.65 mg/dL (0.55-1.02) 05/20/21 21:40 Est GFR (MDRD) Af Amer 122 mL/min (>60) 05/20/21 21:40 Est GFR (MDRD) Non-Af 101 mL/min (>60) 05/20/21 21:40 BUN/Creatinine Ratio 34.1 RATIO (10-20) H 05/20/21 21:40 Glucose 360 mg/dL (74-106) H 05/20/21 21:40 Weight used for dosin kg Estimated Creatinine Clearance: 104 Goal Trough: 15-20 mcg/mL Pharmacy Plan for Drug Dosing: Pharmacy Service will continue to monitor and adjust dosing as required. Follow-Up Labs: Trough Vancomycin Labs to be done on [date and time ordered]: 05/21/21 @1930
[2021-05-20] MEDS: 0.9% Normal Saline 1,000 ML 999 ML IV (23:25)
[2021-05-21] VITALS (30 sets, daily range): BP systolic 112–152; BP diastolic 53–94; PULSE 94–125; RESP 20–30; TEMP 36.9–38.1; O2SAT 90–99
[2021-05-21] MEDS: Potassium Chloride 10mEq/100mL 10 MEQ/100 ML IV.SOLN. 100 MEQ IV BOLUS ×10 (00:03→19:30)
[2021-05-21 00:31] LABS: Bedside Glucose 360 mg/dL (70-110)
[2021-05-21 00:54] LABS: Internal QC Validated? YES +Cl - CLEAR BKGD; Pregnancy, Urine Negative Negative
--- NOTE | 2021-05-21 00:59 | NURSING ---
PANDEMIC DOCUMENTATION DATE: 05/20/21 TIME: 5499
[2021-05-21 01:11] LABS: Blood Gas Specimen Type VEN; VBG BASE EXCESS -14 mmol/L (-1.0-3.5); VBG Bicarbonate 13 mmol/L (22-26); VBG PO2 38 mmHg (25-40); VBG SO2 66 % (50-70); VBG TCO2 14 mmol/L (23-33); VBG pCO2 28.9 mmHg (41-51); VBG pH 7.27 (7.32-7.42)
[2021-05-21 01:29] LABS: Anion Gap 14 (5-15); BUN 27 mg/dL (7-18); BUN/Creat Ratio 36.5 RATIO (10-20); Calcium,Total 9.8 mg/dL (8.5-10.1); Chloride 108 mmol/L (98-107); Creatinine, Serum 0.74 mg/dL (0.55-1.02); EST Glomerular Filtration Rate 86 mL/min (>60); Est Glom Filt Rate - Afr Amer 104 mL/min (>60); Estimated Creatinine Clearance 85.63 ml/min; Glucose 258 mg/dL (74-106); Potassium 3.5 mmol/L (3.5-5.1); Sodium Level 137 mmol/L (136-145)
[2021-05-21] MEDS: Dext 5%-0.45% NS 1,000 ML 150 ML IV ×3 (01:30→16:30)
[2021-05-21 01:34] LABS: Hemoglobin A1c 11.4 % (3.8-5.6)
[2021-05-21] MEDS: 0.9% Normal Saline 1,000 ML 500 ML IV (01:36)
[2021-05-21 02:05] LABS: Bedside Glucose 229 mg/dL (70-110)
[2021-05-21 02:46] LABS: Bedside Glucose 222 mg/dL (70-110)
[2021-05-21 03:19] LABS: M R Staph aureus DNA By PCR POSITIVE (Negative); Probe Check PASS; Staph aureus DNA By PCR POSITIVE (Negative)
[2021-05-21 03:20] LABS: M R Staph aureus DNA By PCR Negative (Negative); Probe Check PASS; Specimen Processing Control PASS
[2021-05-21 04:30] LABS: Bedside Glucose 282 mg/dL (70-110)
[2021-05-21 04:45] LABS: Hematocrit 34.3 % (37-47); Mean Corpuscular Hgb 30.7 pg (27.0-32.0); Mean Corpuscular Volume 87.7 fL (81-99); Mean Platelet Vol. 10.6 fl (6.2-12.0); POSITIVE COUNT YES; POSITIVE DIFFERENTIAL YES; POSITIVE MORPHOLOGY YES; Platelet Count 368 K/mm3 (150-450); RBC Distribution Width CV 13.9 % (11.6-14.6); RBC Distribution Width SD 44.2 fl (35.1-43.9); Red Blood Count 3.91 M/mm3 (4.2-5.4)
[2021-05-21 05:04] LABS: Differential Indicated MANUAL DIFF
[2021-05-21 05:33] LABS: Platelet Estimate ADEQUATE (ADEQ); Red Cell Morphology NORM C+C NORMAL (NORM C&C)
[2021-05-21 05:34] LABS: Platelet Estimate ADEQUATE (ADEQ); Red Cell Morphology NORM C+C NORMAL (NORM C&C)
[2021-05-21] MEDS: Vancomycin IV 1,000 MG/200 ML BAG 200 MG IV ×3 (06:00→21:19)
[2021-05-21 06:27] LABS: Absolute Neutrophil Count 20.8 X10^3/uL (2.0-7.7)
[2021-05-21 06:28] LABS: Absolute Lymphocyte Count 2.16 X10^3/uL (0.83-4.51); Atypical Lymphocyte 2+ %; Blast 2 % (0-0); Lymphocyte 8 % (19-41); Metamyelocyte 4 % (0-1); Monocyte 3 % (0-10); Myelocyte 3 % (0-0); Neutrophil-Band 15 % (0-5); Neutrophil-Segmented 62 % (47-70); Promyelocyte 3 % (0-0); Total Cells Counted 100 (MANUAL DIFF)
[2021-05-21 06:29] LABS: Platelet Estimate ADEQUATE (ADEQ)
[2021-05-21 06:30] LABS: Red Cell Morphology NORM C+C NORMAL (NORM C&C)
[2021-05-21 06:48] LABS: ALB/GLOB Ratio 0.3 RATIO (0.9-2.4); AST(SGOT) 12 U/L (15-37); Alanine Aminotransfer ALT/SGPT 20 U/L (13-56); Albumin, Serum 1.5 g/dL (3.2-5.0); Alkaline Phosphatase 128 U/L (45-117); BUN 22 mg/dL (7-18); BUN/Creat Ratio 30.1 RATIO (10-20); Calcium,Total 9.5 mg/dL (8.5-10.1); Creatinine, Serum 0.73 mg/dL (0.55-1.02); EST Glomerular Filtration Rate 88 mL/min (>60); Est Glom Filt Rate - Afr Amer 107 mL/min (>60); Globulin 5.7 g/dL (2.2-4.2); Glucose 287 mg/dL (74-106); Phosphorus 1.2 mg/dL (2.5-4.9); Protein, Total 7.2 g/dL (6.4-8.2)
[2021-05-21 06:49] LABS: Magnesium 2.3 mg/dL (1.6-2.6); Sodium Level 139 mmol/L (136-145)
[2021-05-21 06:50] LABS: Anion Gap 11 (5-15); Chloride 111 mmol/L (98-107); Potassium 2.3 mmol/L (3.5-5.1); Thyroid Stim Hormone (TSH) 0.29 uIU/mL (0.358-3.74)
[2021-05-21 07:31] LABS: Bedside Glucose 263 mg/dL (70-110)
[2021-05-21 07:45] LABS: Bedside Glucose 312 mg/dL (70-110)
--- NOTE | 2021-05-21 08:29 | CON.PCM.CC_ITS ---
Assessment & Plan Assessment/Plan (1) Sepsis: (2) DKA, type 2: (3) COVID-19: PLAN: RECOMMENDATIONS: 1. Continue broad-spectrum antimicrobials, pending finalized culture work-up. 2. Obtain echocardiogram. 3. Continue IV fluid resuscitation and insulin infusion per DKA protocol. 4. Obtain MRI foot. 5. Await podiatry consultation. 6. Aggressive electrolyte repletion. 7. Hold all sedating medications. IMPRESSIONS: 1. Diabetic ketoacidosis Likely secondary to underlying sepsis coupled with poor outpatient medical compliance. DKA is resolving with supplemental IV fluid hydration and continuous insulin infusion, which will be continued per protocol. Continue aggressive electrolyte repletion. 2. Sepsis Sepsis due to gram-positive bacteremia with concern for infected right foot, questionable osteomyelitis, with acute sepsis related organ dysfunction as evidenced by altered mental status. Plan to continue current supportive measures including IV fluid resuscitation and antimicrobials. Echocardiogram will be obtained in light of the patient's bacteremia. Podiatry consultation is pending. MRI foot is also pending. 3. Metabolic encephalopathy Likely secondary to numbers 1 and 2. Avoid sedating medications for now. Continue supportive measures as noted above. 4. COVID-19 pneumonia The patient is now day 11 of symptoms. She remains stable from a respiratory perspective on room air. No current indication for any additional interventions at the present time. 5. Hypokalemia/hypophosphatemia Aggressive electrolyte repletion as ordered. Recheck levels post repletion. 6. History of hypothyroidism/seasonal allergic rhinitis Complicates care, management, recovery and prognosis. Continue home medications as indicated. This note was generated with [employer] dictation software. It may contain incorrect words, spelling, and punctuation that were not noted in checking the note before signing. HPI Consult Data Date of Consult: 05/21/21 HPI Narrative Reason for Consultation: Sepsis, DKA HPI Narrative: The patient is a 55-year-old female, with a history as outlined below, who presented to the emergency department via EMS on May 20 with generalized weakness after sustaining a fall. The patient has a history of a right foot ulcer, for which she underwent I&D in November [address] Blanchard in [facility] on. She also had a PICC line placed at that time and was on IV antibiotics. Although the patient is confused, she did report that she last saw her certified travel counselor in March. According to her daughter, the patient's foot became swollen over the course of the last week. On presentation to the emergency department, the patient was noted to be afebrile and hemodynamically stable. Initial laboratory evaluation revealed an elevated white blood cell count to 28,000 with left shift. D-dimer was elevated at 4.58. Chemistry profile was notable for a sodium of 132, potassium of 2.8, bicarbonate of 13, anion gap of 19 and glucose of 492. Lactate was elevated at 2.5. Urine positive for ketones. Moderate serum acetone level was noted. Prior MRSA screen was positive. Chest x-ray demonstrated no acute cardiopulmonary process. CTA chest was negative for pulmonary embolism. Right foot CT revealed findings consistent with moderate cellulitis and probable infectious myositis. The patient received supplemental IV fluid hydration and was started on a continuous insulin infusion. In addition, broad-spectrum antimicrobials were started. She was subsequently transferred to the medical intensive care unit for further management. As of this morning, the patient's anion gap has been closed x2. Potassium is low at 2.3. 2 out of 2 blood cultures are positive for gram-positive cocci. [facility] Medical History (Updated 05/21/21 @ 09:51 by Deborah Avitia) Allergies History of MRSA infection Hypothyroidism Narcolepsy Sleep disorder Type 2 diabetes mellitus with diabetic polyneuropathy Home Medications Levocetirizine Dihydrochloride [Xyzal] 5 mg PO DAILY 09/25/16 [History Last Taken Unknown] armodafinil 150 mg PO BID 09/25/16 [History Last Taken Unknown] etonogestrel-ethinyl estradiol [Nuvaring Vaginal Ring] 1 ea VAGINALLY QWEEK 09/25/16 [History Last Taken Unknown] levothyroxine 150 mcg PO DAILY 09/25/16 [History Last Taken Unknown] liothyronine 25 mg PO DAILY 09/25/16 [History Last Taken Unknown] montelukast [Singulair] 10 mg PO DAILY 09/25/16 [History Last Taken Unknown] baclofen 10 mg PO TID 01/01/21 [History Last Taken Unknown] fluticasone propionate [Flonase] 1 spray INTRANASAL BID 01/01/21 [History Last Taken Unknown] Allergy/AdvReac Type Severity Reaction Status Date / Time clindamycin Allergy Hives Verified 05/20/21 17:09 pregabalin [From Lyrica] Allergy Swelling Verified 05/20/21 17:09 bee venom protein (honey bee) AdvReac Anaphylaxis Verified 05/20/21 17:09 Family History (Updated 05/20/21 @ 22:[address] Siobhan Huang DO) Other Diabetes Heart disease Hypertension Surgical History (Updated 05/21/21 @ 09:51 by Deborah Avitia) History of ankle surgery History of cholecystectomy Social History (Updated 05/20/21 @ 22:[address] Siobhan Huang DO) Smoking Status: Former smoker alcohol intake: current alcohol intake frequency: holidays/special occasions only substance use type: does not use ROS Review of Systems ROS Unobtainable: due to encephalopathy and due to mental status Physical Exam Const alert and no apparent distress General Appearance: lethargic and ill appearing HEENT normocephalic and head/scalp atraumatic Mouth: dry mucous membranes Eyes PERRL and EOMs intact bilaterally Neck supple General: trachea midline Resp Effort and Inspection: tachypneic Auscultation: Negative for rales, rhonchi or wheezes Cardio S1 normal heart sound and S2 normal heart sound Rate: tachycardic GI normal to inspection, nondistended, normoactive bowel sounds Extremity General Extremity: edema right lower extremity Skin Wound Narrative: Right lower extremity is swollen and erythematous. Medial ulceration is noted over the right foot. Neuro Sensorium / Orientation: confused, lethargic and somnolent Psych Mood & Affect: flat affect Lab / Micro Data Result Diagrams: 05/21/21 04:30 05/21/21 04:30 Labs: Laboratory Results - last 24 hr 05/20/21 18:25: WBC Cancelled, Corrected WBC Cancelled, RBC Cancelled, Hgb Cancelled, Hct Cancelled, MCV Cancelled, MCH Cancelled, MCHC Cancelled, RDW Std Deviation Cancelled, RDW Coeff of Amos Cancelled, Plt Count Cancelled, MPV Cancelled, Immature Gran % (Auto) Cancelled, Neut % (Auto) Cancelled, Lymph % (Auto) Cancelled, [place] % (Auto) Cancelled, Eos % (Auto) Cancelled, Baso % (Auto) Cancelled, Absolute Neuts (auto) Cancelled, Absolute Lymphs (auto) Cancelled, Total Counted Cancelled, Neutrophils % (Manual) Cancelled, Band Neutrophils % Cancelled, Lymphocytes % (Manual) Cancelled, Monocytes % (Manual) Cancelled, Eosinophils % (Manual) Cancelled, Basophils % (Manual) Cancelled, Metamyelocytes % Cancelled, Myelocytes % Cancelled, Promyelocytes % Cancelled, Blast Cells % Cancelled, Plasma Cell % (Manual) Cancelled, Other Cells % Cancelled, Nucleated RBC % Cancelled, Nucleated RBCs/100 WBC Cancelled, Differential Comment Cancelled, Diff Path Review Cancelled, Hypersegmented Neuts Cancelled, Atypical Lymphocytes Cancelled, Reactive Lymphocytes Cancelled, Smudge Cells Cancelled, Toxic Granulation Cancelled, Toxic Vacuolation Cancelled, Dohle Bodies Cancelled, Yin Rods Cancelled, Platelet Estimate Cancelled, Plt Morphology Comment Cancelled, RBC Morphology Cancelled, Polychromasia Cancelled, Hypochromasia Cancelled, Poikilocytosis Cancelled, Basophilic Stippling Canc elled, Anisocytosis Cancelled, Microcytosis Cancelled, Macrocytosis Cancelled, Spherocytes Cancelled, Sickle Cells Cancelled, Target Cells Cancelled, Tear Drop Cells Cancelled, Ovalocytes Cancelled, Stomatocytes Cancelled, Wheeler-Marathon Bodies Cancelled, Isela Cells Cancelled, Bite Cells Cancelled, Crenated Cell Cancelled, Acanthocytes (Spur) Cancelled, Rouleaux Cancelled, Schistocytes Cancelled 05/20/21 18:25: Sodium Cancelled, Potassium Cancelled, Chloride Cancelled, Carbo n Dioxide Cancelled, Anion Gap Cancelled, BUN Cancelled, Creatinine Cancelled, Estim Creat Clear Calc Cancelled, Est GFR (MDRD) Af Amer Cancelled, Est GFR (MDRD) Non-Af Cancelled, BUN/Creatinine Ratio Cancelled, Glucose Cancelled, Calcium Cancelled, Total Bilirubin Cancelled, AST Cancelled, ALT Cancelled, Alkaline Phosphatase Cancelled, Troponin I High Sens Cancelled, Total Protein Cancelled, Albumin Cancelled, Globulin Cancelled, Albumin/Globulin Ratio Cancelled 05/20/21 19:00: D-Dimer Quant (PE/DVT) 4.58 H* 05/20/21 19:00: Lactic Acid 2.5 H* 05/20/21 19:30: Urine Color Yellow, Urine Clarity Clear, Urine pH 6.0, Ur Specific [place] 1.015, Urine Protein 30 H, Urine Glucose (UA) 1000 H, Urine Ketones 150 A*, Urine Occult Blood 25 H, Urine Nitrite Negative, Urine Bilirubin Negative, Urine Urobilinogen Normal, Ur Leukocyte Esterase Negative, Urine RBC 0 SEEN, Urine WBC 0-5 SEEN, Ur Squamous Epith Cells 0-5 SEEN, Urine Bacteria 0 SEEN, Urine Mucus 0 SEEN 05/20/21 19:40: WBC 28.6 H, RBC 3.79 L, Hgb 11.5 L, Hct 34.4 L, MCV 90.8, MCH 30.3, MCHC 33.4, RDW Std Deviation 47.6 H, RDW Coeff of Amos 14.4, Plt Count 302, MPV 11.4, Neut % (Auto) Not Reportable, Absolute Neuts (auto) 21.7 H, Absolute Lymphs (auto) 3.43, Total Counted 100, Neutrophils % (Manual) 71 H, Band Neutrophils % 5, Lymphocytes % (Manual) 12 L, Monocytes % (Manual) 2, Metamyelocytes % 4 H, Myelocytes % 5 H, Promyelocytes % 1 H, Diff Path Review September, Platelet Estimate ADEQUATE, RBC Morphology NORM C+C 05/20/21 19:40: Sodium Cancelled, Potassium Cancelled, Chloride Cancelled, Carbon Dioxide Cancelled, Anion Gap Cancelled, BUN Cancelled, Creatinine Cancelled, Estim Creat Clear Calc Cancelled, Est GFR (MDRD) Af Amer Cancelled, Est GFR (MDRD) Non-Af Cancelled, BUN/Creatinine Ratio Cancelled, Glucose Cancelled, Calcium Cancelled, Total Bilirubin Cancelled, AST Cancelled, ALT Cancelled, Alkaline Phosphatase Cancelled, Troponin I High Sens Cancelled, Total Protein Cancelled, Albumin Cancelled, Globulin Cancelled, Albumin/Globulin Ratio Cancelled 05/20/21 20:23: Sodium 132 L, Potassium 2.8 L, Chloride 100, Carbon Dioxide 13.0 L, Anion Gap 19 H, BUN 31 H, Creatinine 0.87, Estim Creat Clear Calc 78.08, Est GFR (MDRD) Af Amer 86, Est GFR (MDRD) Non-Af 71, BUN/Creatinine Ratio 35.6 H, Glucose 492 H*, Calcium 10.1, Total Bilirubin 0.80, AST 17, ALT 23, Alkaline Phosphatase 152 H, Troponin I High Sens 7, Total Protein 8.0, Albumin 1.8 L, Globulin 6.2 H, Albumin/Globulin Ratio 0.3 L 05/20/21 21:40: WBC 25.9 H, RBC 3.38 L, Hgb 10.2 L, Hct 30.4 L, MCV 89.9, MCH 30.2, MCHC 33.6, RDW Std Deviation 45.7 H, RDW Coeff of Amos 13.9, Plt Count 323, MPV 11.0, Neut % (Auto) Not Reportable, Absolute Neuts (auto) 21.2 H, Absolute Lymphs (auto) 2.07, Total Counted 100, Neutrophils % (Manual) 74 H, Band Neutrophils % 8 H, Lymphocytes % (Manual) 8 L, Monocytes % (Manual) 6, Metamyelocytes % 2 H, Myelocytes % 2 H, Diff Path Review September, Platelet Estimate ADEQUATE, RBC Morphology NORM C+C 05/20/21 21:40: Sodium 139, Potassium 2.3 L*, Chloride 111 H, Carbon Dioxide 12.0 L, Anion Gap 16 H, BUN 22 H, Creatinine 0.65, Estim Creat Clear Calc 104.51, Est GFR (MDRD) Af Amer 122, Est GFR (MDRD) Non-Af 101, BUN/Creatinine Ratio 34.1 H, Glucose 360 H, Calcium 6.9 L 05/20/21 21:40: Acetone Level MODERATE H 05/20/21 21:40: ESR 58 H 05/20/21 21:52: POC Glucose 480 H* 05/21/21 00:01: POC Glucose 360 H 05/21/21 00:05: Urine Test Negative 05/21/21 00:05: S.aureus Protein A PCR POSITIVE H, MRSA (PCR) POSITIVE H 05/21/21 00:45: Sodium 137, Potassium 3.5, Chloride 108 H, Carbon Dioxide 15.0 L , Anion Gap 14, BUN 27 H, Creatinine 0.74, Estim Creat Clear Calc 85.63, Est GFR (MDRD) Af Amer 104, Est GFR (MDRD) Non-Af 86, BUN/Creatinine Ratio 36.5 H, Glucose 258 H, Calcium 9.8, C-React Prot Ext Range 171.00 H 05/21/21 00:45: Hemoglobin A1c 11.4 H 05/21/21 01:34: POC Glucose 229 H 05/21/21 02:41: POC Glucose 222 H 05/21/21 03:56: POC Glucose 282 H 05/21/21 04:30: WBC 27.0 H, RBC 3.91 L, Hgb 12.0, Hct 34.3 L, MCV 87.7, MCH 30.7, MCHC 35.0, RDW Std Deviation 44.2 H, RDW Coeff of Amos 13.9, Plt Count 368, MPV 10.6, Neut % (Auto) Not Reportable, Absolute Neuts (auto) 20.8 H, Absolute Lymphs (auto) 2.16, Total Counted 100, Neutrophils % (Manual) 62, Band Neutrophils % 15 H, Lymphocytes % (Manual) 8 L, Monocytes % (Manual) 3, [place] myelocytes % 4 H, Myelocytes % 3 H, Promyelocytes % 3 H, Blast Cells % 2 H*, Diff Path Review May foll, Atypical Lymphocytes 2+, Platelet Estimate ADEQUATE, RBC Morphology NORM C+C 05/21/21 04:30: Sodium 139, Potassium 2.3 L*, Chloride 111 H, Carbon Dioxide 17.0 L, Anion Gap 11, BUN 22 H, Creatinine 0.73, Estim Creat Clear Calc 86.80, Est GFR (MDRD) Af Amer 107, Est GFR (MDRD) Non-Af 88, BUN/Creatinine Ratio 30.1 H, Glucose 287 H, Calcium 9.5, Phosphorus 1.2 L, Magnesium 2.3, Total Bilirubin 0.70, AST 12 L, ALT 20, Alkaline Phosphatase 128 H, Total Protein 7.2, Albumin 1.5 L, Globulin 5.7 H, Albumin/Globulin Ratio 0.3 L, TSH 0.29 L 05/21/21 05:59: POC Glucose 263 H 05/21/21 07:35: POC Glucose 312 H 05/21/21 : MRSA (PCR) Negative Micro: Microbiology 05/20/21 19:23 Blood Culture (Wb) - Left Wrist Blood Culture - Preliminary 05/20/21 19:00 Blood Culture (Wb) - Right Hand Blood Culture - Preliminary ABG Data ABG results: ABG 05/21/21 01:02 Specimen Type DANYEL VBG pH 7.27 L VBG pO2 38 VBG HCO3 13 L VBG Total CO2 14 L VBG O2 Sat (Calc) 66 VBG Base Excess -14 L POC Mix VBG pCO2 Pt Tmp 28.9 L Radiology Impression Chest X-Ray 05/20/21 18:30 IMPRESSION: Degenerative changes, as described above. No demonstrated acute cardiopulmonary process. Electronically Signed: Erick Boston MD at 19:58 EST , Service support , Foot X-Ray 05/20/21 18:31 IMPRESSION: Moderate soft tissue swelling Electronically Signed: Erick Boston MD at 19:57 EST , Service support , Chest CTA 05/20/21 19:36 IMPRESSION: 1. No demonstrated pulmonary embolism or arterial dissection. 2. No consolidation or pulmonary edema or pleural effusion is seen. Electronically Signed: Erick Boston MD at 22:04 EST , Service support , Lower Extremity CT 05/20/21 21:54 Charges/Coding Visit Charges Inpatient E&M: 71235 Init Hosp L3
[2021-05-21 08:30] LABS: Bedside Glucose 242 mg/dL (70-110)
--- NOTE | 2021-05-21 08:34 | ECHOD_ITS ---
Reason For Study: Bacteremia, Eval for vegetations Procedure This was a 2D Doppler, Color Flow transthoracic echocardiogram. Exam performed portable in ICU/CCU. The exam was abbreviated due to the COVID 19 protocol. Left Ventricle Normal LV size. Left ventricular systolic function is normal. The estimated ejection fraction is 60 %. No regional wall motion abnormalities noted. Right Ventricle Normal RV size. Normal systolic function. Atria Normal left atrium. Normal right atrium. Mitral Valve Normal mitral valve. Tricuspid Valve Normal tricuspid valve. Pulmonic Valve The pulmonic valve is not well visualized. Great Vessels Normal aortic root. The pulmonary artery is normal size. Normal inferior vena cava. Pericardium/Pleural No pericardial effusion. MMode/2D Measurements & Calculations LVIDd: 4.4 cm IVSd: 1.2 cm LVIDs: 3.0 cm LVPWd: 1.00 cm FS: 30.3 % ECHO/Echo Complete Interpretation Summary Normal LV size. Left ventricular systolic function is normal. The estimated ejection fraction is 60 %. Ordering Physician: Celestino Jones Referring Physician: Cuong Barros Performed By: Harriet Maya, MARLA, RVT
[2021-05-21 09:40] LABS: Bedside Glucose 231 mg/dL (70-110)
[2021-05-21] MEDS: 0.9% Saline Lock 10 ML Syringe IV ×2 (10:21→17:52)
[2021-05-21] MEDS: Enoxaparin 30 MG/0.3 ML Syringe SC ×2 (10:23→22:53)
[2021-05-21 10:31] LABS: Bedside Glucose 210 mg/dL (70-110)
--- NOTE | 2021-05-21 11:11 | WOUNDNOTE ---
wound photo: right foot
--- NOTE | 2021-05-21 11:12 | WOUNDNOTE ---
wound photo: right foot
--- NOTE | 2021-05-21 11:12 | WOUNDNOTE ---
wound photo: right foot
[2021-05-21 11:35] LABS: Bedside Glucose 183 mg/dL (70-110)
--- NOTE | 2021-05-21 11:56 | CON.PCM_ITS ---
Assessment & Plan Assessment/Plan (1) 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: (2) Cellulitis of foot, right: (3) Sepsis: (4) Charcot's joint of right foot: (5) Abscess of foot: (6) Diabetes mellitus with diabetic polyneuropathy: PLAN: Evaluation performed. Reviewed right foot xrays, as well as CT scan findings. There is no gas noted. She does have signs/symptoms of infection to the right foot. There is possible deep abscess as well as possible osteomyelitis - further evaluation is indicated and MRI has been ordered and scheduled to be completed this afternoon. We will evaluate the MRI, we discussed possible I+D, and debridement of foot, possible bone biopsies as well. She is at risk for limb loss due given infection. This was discussed with her. I recommend she get the MRI as noted above. Blood cultures reviewed and noted to be positive for MRSA. Right foot wound culture has also been obtained. She is on IV antibiotics - Vancomycin and Zosyn which she will continue. No weightbearing right foot. Podiatry will continue to follow, will follow up after MRI. Thank you for consultation. HPI Consult Data Date of Consult: 05/21/21 HPI Narrative Reason for Consultation: Right foot infection HPI Narrative: FREEMAN MOCTEZUMA, is a 55 F who presents with many medical problems, including diabetes, DKA, and also who has sepsis and infected right foot. Patient also has COVID. She has hx of I+D right foot several months ago in [place]. She was brought to ER yesterday by EMS due to altered mental status. She was admitted, she is on IV antibiotics - Vanc and Zosyn. She has significantly elevated WBC. She did get CT scan yesterday which did show charcot neuroarthropathy changes to the foot, also fluid collection. MRI has been ordered and is pending. [facility] Medical History (Updated 05/21/21 @ 11:[address] David Alexandre, RAMESH) Allergies History of MRSA infection Hypothyroidism Narcolepsy Sleep disorder Type 2 diabetes mellitus with diabetic polyneuropathy Home Medications Levocetirizine Dihydrochloride [Xyzal] 5 mg PO DAILY 09/25/16 [History Last Taken Unknown] armodafinil 150 mg PO BID 09/25/16 [History Last Taken Unknown] etonogestrel-ethinyl estradiol [Nuvaring Vaginal Ring] 1 ea VAGINALLY QWEEK 09/25/16 [History Last Taken Unknown] levothyroxine 150 mcg PO DAILY 09/25/16 [History Last Taken Unknown] liothyronine 25 mg PO DAILY 09/25/16 [History Last Taken Unknown] montelukast [Singulair] 10 mg PO DAILY 09/25/16 [History Last Taken Unknown] baclofen 10 mg PO TID 01/01/21 [History Last Taken Unknown] fluticasone propionate [Flonase] 1 spray INTRANASAL BID 01/01/21 [History Last Taken Unknown] Allergy/AdvReac Type Severity Reaction Status Date / Time clindamycin Allergy Hives Verified 05/20/21 17:09 pregabalin [From Lyrica] Allergy Swelling Verified 05/20/21 17:09 bee venom protein (honey bee) AdvReac Anaphylaxis Verified 05/20/21 17:09 Family History (Updated 05/20/21 @ 22:[address] Siobhan Huang DO) Other Diabetes Heart disease Hypertension Surgical History (Updated 05/21/21 @ 09:51 by Deborah Avitia) History of ankle surgery History of cholecystectomy Social History (Updated 05/20/21 @ 22:[address] Siobhan Huang DO) Smoking Status: Former smoker alcohol intake: current alcohol intake frequency: holidays/special occasions only substance use type: does not use Physical Exam Const alert and no apparent distress Extremity Extremity Narrative: Right foot with significant pitting edema, increased temperature, and noted cellulitis diffusely to the right foot - there is ulceration to subcutaneous tissue to the right 1st toe, as well as diffuse blistering to the dorsal foot and also to the lateral hindfoot, there is serous drainage noted as well, there is no maloder, no crepitus, no proximal streaking noted. There is no POP or pain on ROM to the right foot. There are no open lesions to the left foot or ankle with no edema or erythema. DP and PT pulses palpable bilateral, CFT < 3 seconds to all toes bilateral. Sensation significantly diminished bilateral foot c/w chronic neuropathy. There is charcot neuroarthropathy to the right foot. Lab / Micro Data Result Diagrams: 05/21/21 04:30 05/21/21 04:30 Labs: Laboratory Results - last 24 hr 05/20/21 18:25: WBC Cancelled, Corrected WBC Cancelled, RBC Cancelled, Hgb Cancelled, Hct Cancelled, MCV Cancelled, MCH Cancelled, MCHC Cancelled, RDW Std Deviation Cancelled, RDW Coeff of Amos Cancelled, Plt Count Cancelled, MPV Cancelled, Immature Gran % (Auto) Cancelled, Neut % (Auto) Cancelled, Lymph % (Auto) Cancelled, [place] % (Auto) Cancelled, Eos % (Auto) Cancelled, Baso % (Auto) Cancelled, Absolute Neuts (auto) Cancelled, Absolute Lymphs (auto) Cancelled, Total Counted Cancelled, Neutrophils % (Manual) Cancelled, Band Neutrophils % Cancelled, Lymphocytes % (Manual) Cancelled, Monocytes % (Manual) Cancelled, Eosinophils % (Manual) Cancelled, Basophils % (Manual) Cancelled, Metamyelocytes % Cancelled, Myelocytes % Cancelled, Promyelocytes % Cancelled, Blast Cells % Cancelled, Plasma Cell % (Manual) Cancelled, Other Cells % Cancelled, Nucleated RBC % Cancelled, Nucleated RBCs/100 WBC Cancelled, Differential Comment Cancelled, Diff Path Review Cancelled, Hypersegmented Neuts Cancelled, Atypical Lymphocytes Cancelled, Reactive Lymphocytes Cancelled, Smudge Cells Cancelled, Toxic Granulation Cancelled, Toxic Vacuolation Cancelled, Dohle Bodies Cancelled, Yin Rods Cancelled, Platelet Estimate Cancelled, Plt Morphology Comment Cancelled, RBC Morphology Cancelled, Polychromasia Cancelled, Hypochromasia Cancelled, Poikilocytosis Cancelled, Basophilic Stippling Cancelled, Anisocytosis Cancelled, Microcytosis Cancelled, Macrocytosis Cancelled, Spherocytes Cancelled, Sickle Cells Cancelled, Target Cells Cancelled, Tear Drop Cells Cancelled, Ovalocytes Cancelled, Stomatocytes Cancelled, Wheeler-Je[place] Bodies Cancelled, [place] Cells Cancelled, Bite Cells Cancelled, Crenated Cell Cancelled, Acanthocytes (Spur) Cancelled, Rouleaux Cancelled, Schistocytes Cancelled 05/20/21 18:25: Sodium Cancelled, Potassium Cancelled, Chloride Cancelled, Carbon Dioxide Cancelled, Anion Gap Cancelled, BUN Cancelled, Creatinine Cancelled, Estim Creat Clear Calc Cancelled, Est GFR (MDRD) Af Amer Cancelled, Est GFR (MDRD) Non-Af Cancelled, BUN/Creatinine Ratio Cancelled, Glucose C ancelled, Calcium Cancelled, Total Bilirubin Cancelled, AST Cancelled, ALT Cancelled, Alkaline Phosphatase Cancelled, Troponin I High Sens Cancelled, Total Protein Cancelled, Albumin Cancelled, Globulin Cancelled, Albumin/Globulin Ratio Cancelled 05/20/21 19:00: D-Dimer Quant (PE/DVT) 4.58 H* 05/20/21 19:00: Lactic Acid 2.5 H* 05/20/21 19:30: Urine Color Yellow, Urine Clarity Clear, Urine pH 6.0, Ur Specific [place] 1.015, Urine Protein 30 H, Urine Glucose (UA) 1000 H, Urine Ketones 150 A*, Urine Occult Blood 25 H, Urine Nitrite Negative, Urine Bilirubin Negative, Urine Urobilinogen Normal, Ur Leukocyte Esterase Negative, Urine RBC 0 SEEN, Urine WBC 0-5 SEEN, Ur Squamous Epith Cells 0-5 SEEN, Urine Bacteria 0 SEEN, Urine Mucus 0 SEEN 05/20/21 19:40: WBC 28.6 H, RBC 3.79 L, Hgb 11.5 L, Hct 34.4 L, MCV 90.8, MCH 30.3, MCHC 33.4, RDW Std Deviation 47.6 H, RDW Coeff of Amos 14.4, Plt Count 302, MPV 11.4, Neut % (Auto) Not Reportable, Absolute Neuts (auto) 21.7 H, Absolute Lymphs (auto) 3.43, Total Counted 100, Neutrophils % (Manual) 71 H, Band Neutrophils % 5, Lymphocytes % (Manual) 12 L, Monocytes % (Manual) 2, Metamyelocytes % 4 H, Myelocytes % 5 H, Promyelocytes % 1 H, Diff Path Review September foll, Platelet Estimate ADEQUATE, RBC Morphology NORM C+C 05/20/21 19:40: Sodium Cancelled, Potassium Cancelled, Chloride Cancelled, Carbon Dioxide Cancelled, Anion Gap Cancelled, BUN Cancelled, Creatinine Cancelled, Estim Creat Clear Calc Cancelled, Est GFR (MDRD) Af Amer Cancelled, Est GFR (MDRD) Non-Af Cancelled, BUN/Creatinine Ratio Cancelled, Glucose Cancelled, Calcium Cancelled, Total Bilirubin Cancelled, AST Cancelled, ALT Cancelled, Alkaline Phosphatase Cancelled, Troponin I High Sens Cancelled, Total Protein Cancelled, Albumin Cancelled, Globulin Cancelled, Albumin/Globulin Ratio Cancelled 05/20/21 20:23: Sodium 132 L, Potassium 2.8 L, Chloride 100, Carbon Dioxide 13.0 L, Anion Gap 19 H, BUN 31 H, Creatinine 0.87, Estim Creat Clear Calc 78.08, Est GFR (MDRD) Af Amer 86, Est GFR (MDRD) Non-Af 71, BUN/Creatinine Ratio 35.6 H, Glucose 492 H*, Calcium 10.1, Total Bilirubin 0.80, AST 17, ALT 23, Alkaline Phosphatase 152 H, Troponin I High Sens 7, Total Protein 8.0, Albumin 1.8 L, Globulin 6.2 H, Albumin/Globulin Ratio 0.3 L 05/20/21 21:40: WBC 25.9 H, RBC 3.38 L, Hgb 10.2 L, Hct 30.4 L, MCV 89.9, MCH 30.2, MCHC 33.6, RDW Std Deviation 45.7 H, RDW Coeff of Amos 13.9, Plt Count 323, MPV 11.0, Neut % (Auto) Not Reportable, Absolute Neuts (auto) 21.2 H, Absolute Lymphs (auto) 2.07, Total Counted 100, Neutrophils % (Manual) 74 H, Band Neutrophils % 8 H, Lymphocytes % (Manual) 8 L, Monocytes % (Manual) 6, Metamyelocytes % 2 H, Myelocytes % 2 H, Diff Path Review September, Platelet Estimate ADEQUATE, RBC Morphology NORM C+C 05/20/21 21:40: Sodium 139, Potassium 2.3 L*, Chloride 111 H, Carbon Dioxide 12.0 L, Anion Gap 16 H, BUN 22 H, Creatinine 0.65, Estim Creat Clear Calc 1 04.51, Est GFR (MDRD) Af Amer 122, Est GFR (MDRD) Non-Af 101, BUN/Creatinine Ratio 34.1 H, Glucose 360 H, Calcium 6.9 L 05/20/21 21:40: Acetone Level MODERATE H 05/20/21 21:40: ESR 58 H 05/20/21 21:52: POC Glucose 480 H* 05/21/21 00:01: POC Glucose 360 H 05/21/21 00:05: Urine Test Negative 05/21/21 00:05: S.aureus Protein A PCR POSITIVE H, MRSA (PCR) POSITIVE H 05/21/21 00:45: Sodium 137, Potassium 3.5, Chloride 108 H, Carbon Dioxide 15.0 L , Anion Gap 14, BUN 27 H, Creatinine 0.74, Estim Creat Clear Calc 85.63, Est GFR (MDRD) Af Amer 104, Est GFR (MDRD) Non-Af 86, BUN/Creatinine Ratio 36.5 H, Glucose 258 H, Calcium 9.8, C-React Prot Ext Range 171.00 H 05/21/21 00:45: Hemoglobin A1c 11.4 H 05/21/21 01:34: POC Glucose 229 H 05/21/21 02:41: POC Glucose 222 H 05/21/21 03:56: POC Glucose 282 H 05/21/21 04:30: WBC 27.0 H, RBC 3.91 L, Hgb 12.0, Hct 34.3 L, MCV 87.7, MCH 30.7, MCHC 35.0, RDW Std Deviation 44.2 H, RDW Coeff of Amos 13.9, Plt Count 368, MPV 10.6, Neut % (Auto) Not Reportable, Absolute Neuts (auto) 20.8 H, Absolute Lymphs (auto) 2.16, Total Counted 100, Neutrophils % (Manual) 62, Band Neutrophils % 15 H, Lymphocytes % (Manual) 8 L, Monocytes % (Manual) 3, Metamyelocytes % 4 H, Myelocytes % 3 H, Promyelocytes % 3 H, Blast Cells % 2 H*, Diff Path Review May foll, Atypical Lymphocytes 2+, Platelet Estimate ADEQUATE, RBC Morphology NORM C+C 05/21/21 04:30: Sodium 139, Potassium 2.3 L*, Chloride 111 H, Carbon Dioxide 17 .0 L, Anion Gap 11, BUN 22 H, Creatinine 0.73, Estim Creat Clear Calc 86.80, Est GFR (MDRD) Af Amer 107, Est GFR (MDRD) Non-Af 88, BUN/Creatinine Ratio 30.1 H, Glucose 287 H, Calcium 9.5, Phosphorus 1.2 L, Magnesium 2.3, Total Bilirubin 0.70, AST 12 L, ALT 20, Alkaline Phosphatase 128 H, Total Protein 7.2, Albumin 1.5 L, Globulin 5.7 H, Albumin/Globulin Ratio 0.3 L, TSH 0.29 L 05/21/21 05:59: POC Glucose 263 H 05/21/21 07:35: POC Glucose 312 H 05/21/21 08:23: POC Glucose 242 H 05/21/21 09:38: POC Glucose 231 H 05/21/21 10:25: POC Glucose 210 H 05/21/21 11:28: POC Glucose 183 H 05/21/21 : MRSA (PCR) Negative Micro: Microbiology 05/20/21 19:00 Blood Culture (Wb) - Right Hand Bacteria Detection (PCR) - Final Meth. resistant Staph. aureus 05/20/21 19:00 Blood Culture (Wb) - Right Hand Blood Culture - Preliminary Meth. resistant Staph. aureus 05/21/21 00:05 Wound - Toe Gram Stain - Final 05/20/21 19:23 Blood Culture (Wb) - Left Wrist Blood Culture - Preliminary ABG Data ABG results: ABG 05/21/21 01:02 Specimen Type DANYEL VBG pH 7.27 L VBG pO2 38 VBG HCO3 13 L VBG Total CO2 14 L VBG O2 Sat (Calc) 66 VBG Base Excess -14 L POC Mix VBG pCO2 Pt Tmp 28.9 L Radiology Impression Chest X-Ray 05/20/21 18:30 IMPRESSION: Degenerative changes, as described above. No demonstrated acute cardiopulmonary process. Electronically Signed: Erick Boston MD at 19:58 EST , Service support , Foot X-Ray 05/20/21 18:31 IMPRESSION: Moderate soft tissue swelling Electronically Signed: Erick Boston MD at 19:57 EST , Service support , Chest CTA 05/20/21 19:36 IMPRESSION: 1. No demonstrated pulmonary embolism or arterial dissection. 2. No consolidation or pulmonary edema or pleural effusion is seen. Electronically Signed: Erick Boston MD at 22:04 EST , Service support , Lower Extremity CT 05/20/21 21:54
[2021-05-21 12:25] LABS: Bedside Glucose 174 mg/dL (70-110)
--- NOTE | 2021-05-21 14:30 | CASEMGMT ---
Addendum entered by Augusta Shine 05/21/21 17:52: Dtr, Erika, states that pt told her friend that she fell @ home and hit her head. Erika was not aware of this and voices concern. BERTA TRUJILLO informed her Dr Jones would be notified of same. She voices appreciation. Dr Jones notified that pt reported to her friend that she fell and hit her head. Original Note: RN RONNIE SIGNAL TOWER OPERATOR CM placed call to pt's daughter, Erika, for initial transition planning/care coordination assessment, as pt has been lethargic, has had some confusion, and is in COVID isolation precautions. BERTA TRUJILLO introduced self and role at [facility] to dtr. Care providers, pharmacy, and demographics verified/updated at this time. Pt did home COVID test on Wed, that they purchased from [facility]. Dr Jones made aware and will order COVID testing to be completed @ [facility]. PCP: Dr Barros Specialists: Dr Blanchard--ortho surgeon in [place]. Pt has seen Dr Gonazlez @ the wound center in the past, but dtr states that her mother would not want to see Dr Gonzalez while @ [facility]. [facility] Insurance: Self-pay. Pt had insurance until end of March and new insurance will not begin until Jun 05. Dtr states this is why pt did not want to come to the hospital sooner. Prescription Benefit: None Living Will/HPOA: Pt does not currently have LW/HCPOA LNOK: Daughter, Erika Falk (only child) Living Arrangements: Lives w/dtr, Erika, and 2 granddaughters, ages 5 & 8. Was very independent until 05/10. Dtr states she received COVID Booster on 05/10 and then started w/weakness and fever. Dtr states she has been taking care of pt since then, getting her meals and assisting her to the bathroom. Transportation: Pt drove prior to illness. Family able to assist DME: States has the following DME available: shower chair, crutches, BSC, walker. She uses an air-cast boot at times. Has a glucometer. No home O2. HHC/SNF: No hx of SNF. Had HHC in November,, for wound care and IV atb's. Dtr does not remember name of agency but thinks they were from [place]. Dtr states she would rather pt be able to return home, if able, @ d/c, but depending on what pt's care needs are @ d/c, pt may be agreeable to SNF, if needed. PLAN: LUIS ANGEL PEREZN RN CM
--- NOTE | 2021-05-21 14:37 | PN.HOSP_ITS ---
Subjective Subjective Patient seen and examined. Still complains of generalized weakness and lethargy. She has been managed for DKA and COVID-19 infection. She is on room air. Anion gap has closed. Objective Data Objective Data Vital Signs: Vital Signs Temp Pulse Resp BP Pulse Ox 98.7 F 107 H 26 H 139/56 H 96 05/21/21 12:00 05/21/21 12:00 05/21/21 12:00 05/21/21 12:00 05/21/21 12:00 Oxygen Delivery Method Room Air Weight: 195 lb 8.8 oz Body Mass Index (BMI) 28.8 Intake & Output: Intake and Output for Last 24 Hours 05/19/21 05/20/21 05/21/21 23:59 23:59 23:59 Intake Total 969 / 1032.76 4752.90 / 4752.90 Output Total 525 / 525 Balance 969 / 582.76 4227.90 / 4227.90 Lab / Micro Data Result Diagrams: 05/21/21 04:30 05/21/21 04:30 Labs: Laboratory Results - last 24 hr 05/20/21 18:25: WBC Cancelled, Corrected WBC Cancelled, RBC Cancelled, Hgb Cancelled, Hct Cancelled, MCV Cancelled, MCH Cancelled, MCHC Cancelled, RDW Std Deviation Cancelled, RDW Coeff of Amos Cancelled, Plt Count Cancelled, MPV Cancelled, Immature Gran % (Auto) Cancelled, Neut % (Auto) Cancelled, Lymph % (Auto) Cancelled, Hughes % (Auto) Cancelled, Eos % (Auto) Cancelled, Baso % (Auto) Cancelled, Absolute Neuts (auto) Cancelled, Absolute Lymphs (auto) Cancelled, Total Counted Cancelled, Neutrophils % (Manual) Cancelled, Band Neutrophils % Cancelled, Lymphocytes % (Manual) Cancelled, Monocytes % (Manual) Cancelled, Eosinophils % (Manual) Cancelled, Basophils % (Manual) Cancelled, Metamyelocytes % Cancelled, Myelocytes % Cancelled, Promyelocytes % Cancelled, Blast Cells % Cancelled, Plasma Cell % (Manual) Cancelled, Other Cells % Cancelled, Nucleated RBC % Cancelled, Nucleated RBCs/100 WBC Cancelled, Differential Comment Cancelled, Diff Path Review Cancelled, Hypersegmented Neuts Cancelled, Atypical Lymphocytes Cancelled, Reactive Lymphocytes Cancelled, Smudge Cells Cancelled, Toxic Granulation Cancelled, Toxic Vacuolation Cancelled, Dohle Bodies Canc elled, Yin Rods Cancelled, Platelet Estimate Cancelled, Plt Morphology Comment Cancelled, RBC Morphology Cancelled, Polychromasia Cancelled, Hypochromasia Cancelled, Poikilocytosis Cancelled, Basophilic Stippling Cancelled, Anisocytosis Cancelled, Microcytosis Cancelled, Macrocytosis Cancelled, Sph erocytes Cancelled, Sickle Cells Cancelled, Target Cells Cancelled, Tear Drop Cells Cancelled, Ovalocytes Cancelled, Stomatocytes Cancelled, [place] Bodies Cancelled, Pinson Cells Cancelled, Bite Cells Cancelled, Crenated Cell Cancelled, Acanthocytes (Spur) Cancelled, Rouleaux Cancelled, Schistocytes Cancelled 05/20/21 18:25: Sodium Cancelled, Potassium Cancelled, Chloride Cancelled, Carbon Dioxide Cancelled, Anion Gap Cancelled, BUN Cancelled, Creatinine Cancelled, Estim Creat Clear Calc Cancelled, Est GFR (MDRD) Af Amer Cancelled, Est GFR (MDRD) Non-Af Cancelled, BUN/Creatinine Ratio Cancelled, Glucose Cancelled, Calcium Cancelled, Total Bilirubin Cancelled, AST Cancelled, ALT Cancelled, Alkaline Phosphatase Cancelled, Troponin I High Sens Cancelled, Total Protein Cancelled, Albumin Cancelled, Globulin Cancelled, Albumin/Globulin Ratio Cancelled 05/20/21 19:00: D-Dimer Quant (PE/DVT) 4.58 H* 05/20/21 19:00: Lactic Acid 2.5 H* 05/20/21 19:30: Urine Color Yellow, Urine Clarity Clear, Urine pH 6.0, Ur Specific Marion 1.015, Urine Protein 30 H, Urine Glucose (UA) 1000 H, Urine Ketones 150 A*, Urine Occult Blood 25 H, Urine Nitrite Negative, Urine Bilirubin Negative, Urine Urobilinogen Normal, Ur Leukocyte Esterase Negative, Urine RBC 0 SEEN, Urine WBC 0-5 SEEN, Ur Squamous Epith Cells 0-5 SEEN, Urine Bacteria 0 SEEN, Urine Mucus 0 SEEN 05/20/21 19:40: WBC 28.6 H, RBC 3.79 L, Hgb 11.5 L, Hct 34.4 L, MCV 90.8, MCH 30.3, MCHC 33.4, RDW Std Deviation 47.6 H, RDW Coeff of Maos 14.4, Plt Count 302, MPV 11.4, Neut % (Auto) Not Reportable, Absolute Neuts (auto) 21.7 H, Absolute Lymphs (auto) 3.43, Total Counted 100, Neutrophils % (Manual) 71 H, Band Neutrophils % 5, Lymphocytes % (Manual) 12 L, Monocytes % (Manual) 2, Metamyeloc ytes % 4 H, Myelocytes % 5 H, Promyelocytes % 1 H, Diff Path Review September foll, Platelet Estimate ADEQUATE, RBC Morphology NORM C+C 05/20/21 19:40: Sodium Cancelled, Potassium Cancelled, Chloride Cancelled, Carbon Dioxide Cancelled, Anion Gap Cancelled, BUN Cancelled, Creatinine Cancelled, Estim Creat Clear Calc Cancelled, Est GFR (MDRD) Af Amer Cancelled, Est GFR (MDRD) Non-Af Cancelled, BUN/Creatinine Ratio Cancelled, Glucose Cancelled, Calcium Cancelled, Total Bilirubin Cancelled, AST Cancelled, ALT Cancelled, Alkaline Phosphatase Cancelled, Troponin I High Sens Cancelled, Total Protein Cancelled, Albumin Cancelled, Globulin Cancelled, Albumin/Globulin Ratio Cancelled 05/20/21 20:23: Sodium 132 L, Potassium 2.8 L, Chloride 100, Carbon Dioxide 13.0 L, Anion Gap 19 H, BUN 31 H, Creatinine 0.87, Estim Creat Clear Calc 78.08, Est GFR (MDRD) Af Amer 86, Est GFR (MDRD) Non-Af 71, BUN/Creatinine Ratio 35.6 H, Glucose 492 H*, Calcium 10.1, Total Bilirubin 0.80, AST 17, ALT 23, Alkaline Phosphatase 152 H, Troponin I High Sens 7, Total Protein 8.0, Albumin 1.8 L, Globulin 6.2 H, Albumin/Globulin Ratio 0.3 L 05/20/21 21:40: WBC 25.9 H, RBC 3.38 L, Hgb 10.2 L, Hct 30.4 L, MCV 89.9, MCH 30.2, MCHC 33.6, RDW Std Deviation 45.7 H, RDW Coeff of Amos 13.9, Plt Count 323, MPV 11.0, Neut % (Auto) Not Reportable, Absolute Neuts (auto) 21.2 H, Absolute Lymphs (auto) 2.07, Total Counted 100, Neutrophils % (Manual) 74 H, Band Neutrophils % 8 H, Lymphocytes % (Manual) 8 L, Monocytes % (Manual) 6, [place] myelocytes % 2 H, Myelocytes % 2 H, Diff Path Review May , Platelet Estimate ADEQUATE, RBC Morphology NORM C+C 05/20/21 21:40: Sodium 139, Potassium 2.3 L*, Chloride 111 H, Carbon Dioxide 12.0 L, Anion Gap 16 H, BUN 22 H, Creatinine 0.65, Estim Creat Clear Calc 104.51, Est GFR (MDRD) Af Amer 122, Est GFR (MDRD) Non-Af 101, BUN/Creatinine Ratio 34.1 H, Glucose 360 H, Calcium 6.9 L 05/20/21 21:40: Acetone Level MODERATE H 05/20/21 21:40: ESR 58 H 05/20/21 21:52: POC Glucose 480 H* 05/21/21 00:01: POC Glucose 360 H 05/21/21 00:05: Urine Test Negative 05/21/21 00:05: S.aureus Protein A PCR POSITIVE H, MRSA (PCR) POSITIVE H 05/21/21 00:45: Sodium 137, Potassium 3.5, Chloride 108 H, Carbon Dioxide 15.0 L , Anion Gap 14, BUN 27 H, Creatinine 0.74, Estim Creat Clear Calc 85.63, Est GFR (MDRD) Af Amer 104, Est GFR (MDRD) Non-Af 86, BUN/Creatinine Ratio 36.5 H, Glucose 258 H, Calcium 9.8, C-React Prot Ext Range 171.00 H 05/21/21 00:45: Hemoglobin A1c 11.4 H 05/21/21 01:34: POC Glucose 229 H 05/21/21 02:41: POC Glucose 222 H 05/21/21 03:56: POC Glucose 282 H 05/21/21 04:30: WBC 27.0 H, RBC 3.91 L, Hgb 12.0, Hct 34.3 L, MCV 87.7, MCH 30.7, MCHC 35.0, RDW Std Deviation 44.2 H, RDW Coeff of Amos 13.9, Plt Count 368, MPV 10.6, Neut % (Auto) Not Reportable, Absolute Neuts (auto) 20.8 H, Absolute Lymphs (auto) 2.16, Total Counted 100, Neutrophils % (Manual) 62, Band Neut rophils % 15 H, Lymphocytes % (Manual) 8 L, Monocytes % (Manual) 3, Metamyelocytes % 4 H, Myelocytes % 3 H, Promyelocytes % 3 H, Blast Cells % 2 H*, Diff Path Review May foll, Atypical Lymphocytes 2+, Platelet Estimate ADEQUATE, RBC Morphology NORM C+C 05/21/21 04:30: Sodium 139, Potassium 2.3 L*, Chloride 111 H, Carbon Dioxide 17.0 L, Anion Gap 11, BUN 22 H, Creatinine 0.73, Estim Creat Clear Calc 86.80, Est GFR (MDRD) Af Amer 107, Est GFR (MDRD) Non-Af 88, BUN/Creatinine Ratio 30.1 H, Glucose 287 H, Calcium 9.5, Phosphorus 1.2 L, Magnesium 2.3, Total Bilirubin 0.70, AST 12 L, ALT 20, Alkaline Phosphatase 128 H, Total Protein 7.2, Albumin 1.5 L, Globulin 5.7 H, Albumin/Globulin Ratio 0.3 L, TSH 0.29 L 05/21/21 05:59: POC Glucose 263 H 05/21/21 07:35: POC Glucose 312 H 05/21/21 08:23: POC Glucose 242 H 05/21/21 09:38: POC Glucose 231 H 05/21/21 10:25: POC Glucose 210 H 05/21/21 11:28: POC Glucose 183 H 05/21/21 12:17: POC Glucose 174 H 05/21/21 : MRSA (PCR) Negative Micro: Microbiology 05/20/21 19:00 Blood Culture (Wb) - Right Hand Bacteria Detection (PCR) - Final Meth. resistant Staph. aureus 05/20/21 19:00 Blood Culture (Wb) - Right Hand Blood Culture - Preliminary Meth. resistant Staph. aureus 05/21/21 00:05 Wound - Toe Gram Stain - Final 05/20/21 19:23 Blood Culture (Wb) - Left Wrist Blood Culture - Preliminary ABG Data ABG results: ABG 05/21/21 01:02 Specimen Type DANYEL VBG pH 7.27 L VBG pO2 38 VBG HCO3 13 L VBG Total CO2 14 L VBG O2 Sat (Calc) 66 VBG Base Excess -14 L POC Mix VBG pCO2 Pt Tmp 28.9 L Radiography Diagnostic Testing: Radiology Impression Chest X-Ray 05/20/21 18:30 IMPRESSION: Degenerative changes, as described above. No demonstrated acute cardiopulmonary process. Electronically Signed: Erick Boston MD at 19:58 EST , Service support , Foot X-Ray 05/20/21 18:31 IMPRESSION: Moderate soft tissue swelling Electronically Signed: Erick Boston MD at 19:57 EST , Service support , Chest CTA 05/20/21 19:36 IMPRESSION: 1. No demonstrated pulmonary embolism or arterial dissection. 2. No consolidation or pulmonary edema or pleural effusion is seen. Electronically Signed: Erick Boston MD at 22:04 EST , Service support , Lower Extremity CT 05/20/21 21:54 Echocardiogram 05/21/21 08:34 Interpretation Summary Normal LV size. Left ventricular systolic function is normal. The estimated ejection fraction is 60 %. Ordering Physician: Celestino Jones Referring Physician: Cuong Barros Performed By: Harriet Maya, MARLA, RVT Physical Exam Const alert and oriented x3 Orientation / Consciousness: lethargic Exam Limitations: no limitations HEENT head/scalp atraumatic and moist oral mucous membranes Head and Scalp: normocephalic Eyes PERRL, EOMs intact bilaterally and conjunctivae normal Neck no lymphadenopathy Resp normal respiratory effort, no retractions, no use of accessory muscles and clear to auscultation bilaterally Cardio regular rate, regular rhythm and no murmurs GI normal to inspection, nondistended, normoactive bowel sounds, soft to palpation, non-tender and non-distended Extremity full ROM Extremity Narrative: right foot is very swollen, erythematous, with blister formation, tender to touch Peripheral Pulses: Yes pulses 2+ throughout Skin Skin Narrative: as under foot inspection Neuro Neuro Narrative: very lethargic Sensorium / Orientation: awake Assessment & Plan Assessment/Plan (1) Abscess of foot: (2) DKA, type 2: (3) Cellulitis of foot, right: (4) COVID-19: PLAN: #DKA due to noncompliance with diabetes meds * on insulin drip. Anion gap has closed * transition to subcu insulin since gap was closed. * Initiate diabetic diet. A1c is pending. * A1C is 11.4 * #Sepsis due to diabetic foot wound with cellulitis of the right lower extremity * On IV vancomycin and Zosyn. Blood cultures x2 pending. Podiatry consulted. * Wound cultures also pending. * MRI of the foot is pending. * Blood cultures are growing gram-positive bacteremia. There is concern for osteomyelitis of the foot as well. * 2D echo ordered in light of gram-positive bacteremia: shows normal LV size and function, with estimated EF of 60% * WBC elevated at 27 and patient is also tachycardic and tachypneic. * #Acute metabolic encephalopathy * This is likely due to DKA and sepsis as well as Covid. * Management as above. Hold all sedative medications. * Fall precautions. * #Anion gap metabolic acidosis: Due to DKA. Should resolve once DKA has also resolved. #COVID-19 infection: Currently on room air. On Decadron. Breathing treatments of bronchodilators. #Hypokalemia: Resolved #Hypocalcemia: Replace. Will trend. #Elevated D-dimer: CTA was negative for PE. Therefore likely due to Covid. #Hypothyroidism: On Synthroid DVT prophylaxis: Lovenox Charges/Coding Visit Charges Inpatient E&M: 77699 Subs Hosp L3
[2021-05-21 15:05] LABS: Anion Gap 8 (5-15); BUN 18 mg/dL (7-18); BUN/Creat Ratio 30.3 RATIO (10-20); Calcium,Total 9.7 mg/dL (8.5-10.1); Chloride 108 mmol/L (98-107); Creatinine, Serum 0.59 mg/dL (0.55-1.02); EST Glomerular Filtration Rate 111 mL/min (>60); Est Glom Filt Rate - Afr Amer 134 mL/min (>60); Glucose 232 mg/dL (74-106); Potassium 2.5 mmol/L (3.5-5.1); Sodium Level 138 mmol/L (136-145)
[2021-05-21 15:39] LABS: Pathologist Review Reviewed
[2021-05-21 15:39] LABS: Pathologist Review Reviewed
[2021-05-21 15:47] LABS: Pathologist Review Reviewed
[2021-05-21] MEDS: Potassium Chloride Oral Soln 20 MEQ/15 ML UDC 40 MEQ PO (16:43)
[2021-05-21] MEDS: Insulin Lispro 100 UNIT/ML INSULN.PEN SC ×2 (17:54→22:56)
[2021-05-21 18:00] LABS: Bedside Glucose 348 mg/dL (70-110)
--- NOTE | 2021-05-21 19:21 | WOUNDNOTE ---
In to assist Dr Alexandre with a bedside I&D of the right foot. large amounts of purulence expressed. no odor noted. sites irrigated with NS and packed with 1/4 iodoform gauze. covered with dry dressings, ABD pads, and wrapped with kerlix. reapplied the ARMANDO wraps. pt tolerated well.
[2021-05-21 20:16] LABS: Vancomycin, Trough Level 11.7 ug/mL (5.0-15.0)
[2021-05-21] MEDS: Potassium Chloride 20mEq/100mL 20 MEQ/100 ML IV.SOLN. 100 MEQ IV BOLUS ×2 (20:55→22:12)
[2021-05-21] MEDS: Acetaminophen 325 MG Tablet 650 MG PO (22:16)
[2021-05-21 23:05] LABS: Bedside Glucose 349 mg/dL (70-110)
[2021-05-21 23:10] LABS: Probe Check PASS; Specimen Processing Control PASS; Staph aureus DNA By PCR POSITIVE (Negative)
[2021-05-21 23:12] LABS: M R Staph aureus DNA By PCR POSITIVE (Negative)
[2021-05-22] VITALS (18 sets, daily range): BP systolic 98–133; BP diastolic 57–77; PULSE 82–102; RESP 12–28; TEMP 36.4–37.3; O2SAT 91–98
[2021-05-22 01:45] LABS: Bedside Glucose 365 mg/dL (70-110)
--- NOTE | 2021-05-22 02:23 | PCM.RX.CS ---
Consult Pharmacy has been consulted to manage selected antiobiotic: Vancomycin Type of Consult: Follow-up Labs: Sodium 138 mmol/L (136-145) 05/21/21 14:20 Potassium 2.5 mmol/L (3.5-5.1) L* 05/21/21 14:20 Chloride 108 mmol/L (98-107) H 05/21/21 14:20 Carbon Dioxide 22.0 mmol/L (21.0-32.0) 05/21/21 14:20 Anion Gap 8 (5-15) 05/21/21 14:20 BUN 18 mg/dL (7-18) 05/21/21 14:20 Creatinine 0.59 mg/dL (0.55-1.02) 05/21/21 14:20 Est GFR (MDRD) Af Amer 134 mL/min (>60) 05/21/21 14:20 Est GFR (MDRD) Non-Af 111 mL/min (>60) 05/21/21 14:20 BUN/Creatinine Ratio 30.3 RATIO (10-20) H 05/21/21 14:20 Glucose 232 mg/dL (74-106) H 05/21/21 14:20 Vancomycin Trough 11.7 ug/mL (5.0-15.0) 05/21/21 19:15 Microbiology: Microbiology 05/20/21 19:00 Blood Culture (Wb) - Right Hand Bacteria Detection (PCR) - Final Meth. resistant Staph. aureus 05/20/21 19:00 Blood Culture (Wb) - Right Hand Blood Culture - Preliminary Meth. resistant Staph. aureus 05/21/21 00:05 Wound - Toe Gram Stain - Final 05/20/21 19:23 Blood Culture (Wb) - Left Wrist Blood Culture - Preliminary Goal Trough: 15-20 mcg/mL Pharmacy Plan for Drug Dosing: Pharmacy Service will continue to monitor and adjust dosing as required. TROUGH 11.7 @ 7HRS. INCREASE TO 1250MG Q8H AND FOLLOW UP TROUGH PRIOR TO 4TH DOSE Follow-Up Labs: Trough Vancomycin Labs to be done on [date and time ordered]: 05/23 @ 4937
[2021-05-22] MEDS: Dext 5%-0.45% NS 1,000 ML 150 ML IV (04:13)
[2021-05-22 04:43] LABS: Hematocrit 27.9 % (37-47); Hemoglobin 9.8 g/dL (12.0-15.0); Mean Corp Hgb Conc 35.1 g/dL (32-36); Mean Corpuscular Hgb 30.5 pg (27.0-32.0); Mean Corpuscular Volume 86.9 fL (81-99); Mean Platelet Vol. 10.5 fl (6.2-12.0); POSITIVE COUNT YES; POSITIVE MORPHOLOGY YES; Platelet Count 298 K/mm3 (150-450); RBC Distribution Width CV 14.1 % (11.6-14.6); RBC Distribution Width SD 44.9 fl (35.1-43.9); Red Blood Count 3.21 M/mm3 (4.2-5.4); White Blood Count 21.5 K/mm3 (4.4-11.0)
[2021-05-22 04:46] LABS: Differential Indicated MANUAL DIFF
[2021-05-22 05:01] LABS: Absolute Lymphocyte Count 2.15 X10^3/uL (0.83-4.51); Absolute Neutrophil Count 17.6 X10^3/uL (2.0-7.7); Metamyelocyte 1 % (0-1); Myelocyte 2 % (0-0); Neutrophil-Band 15 % (0-5); Neutrophil-Segmented 67 % (47-70); Total Cells Counted 100 (MANUAL DIFF)
[2021-05-22 05:02] LABS: Basophil 1 % (0-1); Lymphocyte 10 % (19-41); Monocyte 2 % (0-10); Phosphorus 3.2 mg/dL (2.5-4.9); Platelet Estimate ADEQUATE (ADEQ); Promyelocyte 2 % (0-0); Red Cell Morphology NORM C+C NORMAL (NORM C&C)
[2021-05-22 05:19] LABS: Anion Gap 8 (5-15); BUN 16 mg/dL (7-18); BUN/Creat Ratio 31.7 RATIO (10-20); Calcium,Total 8.3 mg/dL (8.5-10.1); Chloride 108 mmol/L (98-107); EST Glomerular Filtration Rate 134 mL/min (>60); Est Glom Filt Rate - Afr Amer 162 mL/min (>60); Estimated Creatinine Clearance 126.74 ml/min; Glucose 370 mg/dL (74-106); Potassium 2.6 mmol/L (3.5-5.1); Sodium Level 139 mmol/L (136-145)
[2021-05-22] MEDS: Insulin Lispro 100 UNIT/ML INSULN.PEN SC ×3 (06:04→16:36)
[2021-05-22 06:16] LABS: Bedside Glucose 383 mg/dL (70-110)
--- NOTE | 2021-05-22 06:20 | PCM.PN.INT ---
Assessment & Plan Assessment/Plan (1) Sepsis: (2) DKA, type 2: (3) COVID-19: PLAN: RECOMMENDATIONS: 1. Continue antibiotics. Okay to discontinue Zosyn. 2. Local wound care per podiatry recommendations. 3. Stop continuous IV fluids. 4. Continue basal and sliding scale coverage. Additional titration per hospitalist. 5. Aggressive electrolyte repletion. 6. The patient is medically stable for transfer out of the intensive care unit. Will sign off at this time. IMPRESSIONS: 1. Diabetic ketoacidosis Resolved. Likely secondary to underlying sepsis coupled with poor outpatient medical compliance. Continue basal and sliding scale insulin coverage along with aggressive electrolyte repletion as ordered. 2. Sepsis Sepsis due to gram-positive bacteremia with concern for infected right foot, questionable osteomyelitis, with acute sepsis related organ dysfunction as evidenced by altered mental status. Continue antimicrobials as ordered along with local wound care per podiatry recommendations. 3. Metabolic encephalopathy Improved. Likely secondary to numbers 1 and 2. Avoid sedating medications for now. Continue supportive measures as noted above. 4. COVID-19 pneumonia The patient reportedly tested +10 days prior to hospitalization via a home test. PCR testing completed on May 21 was negative, however. 5. Hypokalemia Aggressive electrolyte repletion as ordered. 6. History of hypothyroidism/seasonal allergic rhinitis Complicates care, management, recovery and prognosis. Continue home medications as indicated. This note was generated with [employer] dictation software. It may contain incorrect words, spelling, and punctuation that were not noted in checking the note before signing. Subjective Subjective The patient was seen and examined at the bedside this morning. Events from the last 24 hours have been reviewed. The patient is currently afebrile, hemodynamically stable and maintaining appropriate oxygen saturations on room air. Overnight, the patient's mentation has improved. She remains on antimicrobials, along with basal and sliding scale insulin coverage. MRI foot was able to be completed yesterday and did reveal acute on chronic osteomyelitis. The patient did undergo bedside I&D by podiatry last evening. White count is elevated this morning at 21,000. Potassium is low at 2.6. Creatinine is within normal limits. Glucose is elevated at 370. Objective Data Objective Data The patient's most recent lab work, culture data and imaging studies have all been personally reviewed. Surface echocardiogram completed on May 21 was unremarkable. Blood cultures dated May 20 were positive for MRSA. Wound cultures are currently pending. Vital Signs: Vital Signs Temp Pulse Resp BP Pulse Ox 98.5 F 85 25 H 98/75 97 05/22/21 04:00 05/22/21 05:00 05/22/21 05:00 05/22/21 05:00 05/22/21 05:00 Oxygen Flow Rate (L/min) 2 Oxygen Delivery Method Room Air Weight: 91.3 kg Body Mass Index (BMI) 28.8 Intake & Output: Intake and Output for Last 24 Hours 05/20/21 05/21/21 05/22/21 23:59 23:59 23:59 Intake Total 969 / 1032.76 6361.23 / 6601.23 2070.8333 / 2070.8333 Output Total 1275 / 1975 1200 / 1200 Balance 969 / 582.76 5086.23 / 4626.23 870.8333 / 870.8333 Lab / Micro Data Attestation: I reviewed the patient's lab results. Result Diagrams: 05/22/21 03:55 05/22/21 03:55 Labs: Laboratory Results - last 24 hr 05/20/21 19:40: Diff Path Review Reviewed 05/20/21 21:40: Diff Path Review Reviewed 05/21/21 04:30: Absolute Neuts (auto) 20.8 H, Absolute Lymphs (auto) 2.16, Total Counted 100, Neutrophils % (Manual) 62, Band Neutrophils % 15 H, Lymphocytes % (Manual) 8 L, Monocytes % (Manual) 3, Metamyelocytes % 4 H, Myelocytes % 3 H, Promyelocytes % 3 H, Blast Cells % 2 H*, Diff Path Review Reviewed, Atypical Lymphocytes 2+, Platelet Estimate ADEQUATE, RBC Morphology NORM C+C 05/21/21 04:30: Sodium 139, Potassium 2.3 L*, Chloride 111 H, Carbon Dioxide 17.0 L, Anion Gap 11, BUN 22 H, Creatinine 0.73, Estim Creat Clear Calc 86.80, Est GFR (MDRD) Af Amer 107, Est GFR (MDRD) Non-Af 88, BUN/Creatinine Ratio 30.1 H, Glucose 287 H, Calcium 9.5, Phosphorus 1.2 L, Magnesium 2.3, Total Bilirubin 0.70, AST 12 L, ALT 20, Alkaline Phosphatase 128 H, Total Protein 7.2, Albumin 1.5 L, Globulin 5.7 H, Albumin/Globulin Ratio 0.3 L, TSH 0.29 L 05/21/21 05:59: POC Glucose 263 H 05/21/21 07:35: POC Glucose 312 H 05/21/21 08:23: POC Glucose 242 H 05/21/21 09:38: POC Glucose 231 H 05/21/21 10:25: POC Glucose 210 H 05/21/21 11:28: POC Glucose 183 H 05/21/21 12:17: POC Glucose 174 H 05/21/21 14:20: Sodium 138, Potassium 2.5 L*, Chloride 108 H, Carbon Dioxide 22.0, Anion Gap 8, BUN 18, Creatinine 0.59, Estim Creat Clear Calc 107.40, Est GFR (MDRD) Af Amer 134, Est GFR (MDRD) Non-Af 111, BUN/Creatinine Ratio 30.3 H, Glucose 232 H, Calcium 9.7 05/21/21 16:33: COVID-19 (LAUREN) Not Detected 05/21/21 17:51: POC Glucose 348 H 05/21/21 19:00: S.aureus Protein A PCR POSITIVE H, MRSA (PCR) POSITIVE H 05/21/21 19:15: Vancomycin Trough 11.7 05/21/21 22:55: POC Glucose 349 H 05/22/21 01:41: POC Glucose 365 H 05/22/21 03:55: WBC 21.5 H, RBC 3.21 L, Hgb 9.8 L, Hct 27.9 L, MCV 86.9, MCH 30.5, MCHC 35.1, RDW Std Deviation 44.9 H, RDW Coeff of Amos 14.1, Plt Count 298, MPV 10.5, Neut % (Auto) Not Reportable, Absolute Neuts (auto) 17.6 H, Absolute Lymphs (auto) 2.15, Total Counted 100, Neutrophils % (Manual) 67, Band Neutrophils % 15 H, Lymphocytes % (Manual) 10 L, Monocytes % (Manual) 2, Basophils % (Manual) 1, Metamyelocytes % 1, Myelocytes % 2 H, Promyelocytes % 2 H, Diff Path Review May foll, Platelet Estimate ADEQUATE, RBC Morphology NORM C+C 05/22/21 03:55: Sodium 139, Potassium 2.6 L*, Chloride 108 H, Carbon Dioxide 23.0, Anion Gap 8, BUN 16, Creatinine 0.50 L, Estim Creat Clear Calc 126.74, Est GFR (MDRD) Af Amer 162, Est GFR (MDRD) Non-Af 134, BUN/Creatinine Ratio 31.7 H, Glucose 370 H, Calcium 8.3 L 05/22/21 03:55: Phosphorus 3.2 05/22/21 06:03: POC Glucose 383 H Micro: Microbiology 05/20/21 19:00 Blood Culture (Wb) - Right Hand Bacteria Detection (PCR) - Final Meth. resistant Staph. aureus 05/20/21 19:00 Blood Culture (Wb) - Right Hand Blood Culture - Preliminary Meth. resistant Staph. aureus 05/21/21 00:05 Wound - Toe Gram Stain - Final 05/20/21 19:23 Blood Culture (Wb) - Left Wrist Blood Culture - Preliminary Radiography Diagnostic Testing: Radiology Impression Lower Extremity MRI 05/20/21 22:08 Echocardiogram 05/21/21 08:34 Interpretation Summary Normal LV size. Left ventricular systolic function is normal. The estimated ejection fraction is 60 %. Ordering Physician: Celestino Jones Referring Physician: Cuong Barros Performed By: Harriet Maya, MELANYCS, RVT Physical Exam Const alert and no apparent distress HEENT normocephalic and head/scalp atraumatic Mouth: dry mucous membranes Eyes PERRL and EOMs intact bilaterally Neck supple General: trachea midline Resp normal respiratory effort Auscultation: Negative for rales, rhonchi or wheezes Cardio regular rate and regular rhythm GI normal to inspection, nondistended, normoactive bowel sounds Extremity General Extremity: edema right lower extremity Skin Wound Narrative: Wrapped right lower extremity. Neuro no focal motor deficits Psych Mood & Affect: flat affect Charges/Coding Visit Charges Inpatient E&M: 66889 Subs Hosp L3
--- NOTE | 2021-05-22 07:02 | PN_ITS ---
Subjective Subjective Patient was seen this morning for follow up on right foot. She relates she is feeling better than yesterday. She is resting comfortably in bed, no new complaints. No complaints of fever, chills, nausea or vomiting. Objective Data Objective Data Vital Signs: Vital Signs Temp Pulse Resp BP Pulse Ox 98.5 F 85 25 H 98/75 97 05/22/21 04:00 05/22/21 05:00 05/22/21 05:00 05/22/21 05:00 05/22/21 05:00 Oxygen Flow Rate (L/min) 2 Oxygen Delivery Method Room Air Weight: 91.3 kg Body Mass Index (BMI) 28.8 Intake & Output: Intake and Output for Last 24 Hours 05/20/21 05/21/21 05/22/21 23:59 23:59 23:59 Intake Total 969 / 1032.76 6361.23 / 6601.23 2070.8333 / 2070.8333 Output Total 1275 / 1975 1200 / 1200 Balance 969 / 582.76 5086.23 / 4626.23 870.8333 / 870.8333 Lab / Micro Data Result Diagrams: 05/22/21 03:55 05/22/21 03:55 Labs: Laboratory Results - last 24 hr 05/20/21 19:40: Diff Path Review Reviewed 05/20/21 21:40: Diff Path Review Reviewed 05/21/21 04:30: Diff Path Review Reviewed 05/21/21 05:59: POC Glucose 263 H 05/21/21 07:35: POC Glucose 312 H 05/21/21 08:23: POC Glucose 242 H 05/21/21 09:38: POC Glucose 231 H 05/21/21 10:25: POC Glucose 210 H 05/21/21 11:28: POC Glucose 183 H 05/21/21 12:17: POC Glucose 174 H 05/21/21 14:20: Sodium 138, Potassium 2.5 L*, Chloride 108 H, Carbon Dioxide 22.0, Anion Gap 8, BUN 18, Creatinine 0.59, Estim Creat Clear Calc 107.40, Est GFR (MDRD) Af Amer 134, Est GFR (MDRD) Non-Af 111, BUN/Creatinine Ratio 30.3 H, Glucose 232 H, Calcium 9.7 05/21/21 16:33: COVID-19 ([facility]) Not Detected 05/21/21 17:51: POC Glucose 348 H 05/21/21 19:00: S.aureus Protein A PCR POSITIVE H, MRSA (PCR) POSITIVE H 05/21/21 19:15: Vancomycin Trough 11.7 05/21/21 22:55: POC Glucose 349 H 05/22/21 01:41: POC Glucose 365 H 05/22/21 03:55: WBC 21.5 H, RBC 3.21 L, Hgb 9.8 L, Hct 27.9 L, MCV 86.9, MCH 30.5, MCHC 35.1, RDW Std Deviation 44.9 H, RDW Coeff of Amos 14.1, Plt Count 298, MPV 10.5, Neut % (Auto) Not Reportable, Absolute Neuts (auto) 17.6 H, Absolute Lymphs (auto) 2.15, Total Counted 100, Neutrophils % (Manual) 67, Band Neutrophils % 15 H, Lymphocytes % (Manual) 10 L, Monocytes % (Manual) 2, Basophils % (Manual) 1, Metamyelocytes % 1, Myelocytes % 2 H, Promyelocytes % 2 H, Diff Path Review May , Platelet Estimate ADEQUATE, RBC Morphology NORM C+C 05/22/21 03:55: Sodium 139, Potassium 2.6 L*, Chloride 108 H, Carbon Dioxide 23.0, Anion Gap 8, BUN 16, Creatinine 0.50 L, Estim Creat Clear Calc 126.74, Est GFR (MDRD) Af Amer 162, Est GFR (MDRD) Non-Af 134, BUN/Creatinine Ratio 31.7 H, Glucose 370 H, Calcium 8.3 L 05/22/21 03:55: Phosphorus 3.2 05/22/21 06:03: POC Glucose 383 H Micro: Microbiology 05/20/21 19:00 Blood Culture (Wb) - Right Hand Bacteria Detection (PCR) - Final Meth. resistant Staph. aureus 05/20/21 19:00 Blood Culture (Wb) - Right Hand Blood Culture - Preliminary Meth. resistant Staph. aureus 05/21/21 00:05 Wound - Toe Gram Stain - Final 05/20/21 19:23 Blood Culture (Wb) - Left Wrist Blood Culture - Preliminary Radiography Diagnostic Testing: Radiology Impression Lower Extremity MRI 12/28/21 22:08 Echocardiogram 05/21/21 08:34 Interpretation Summary Normal LV size. Left ventricular systolic function is normal. The estimated ejection fraction is 60 %. Ordering Physician: Celestino Jones Referring Physician: Cuong Barros Performed By: Harriet Maya, MELANYCS, RVT Physical Exam Const alert and no apparent distress Extremity Extremity Narrative: Right foot s/p I+D with less edema and less erythema, there is some purulence from the I+D sites but significantly less than yesterday. There are no new areas of visible abscess formation to the right foot, there is no maloder, no crepitus, no proximal streaking noted. There is very minimal to no POP or pain on ROM to the right foot. DP and PT pulses palpable, CFT < 3 seconds to all toes right foot. Sensation significantly diminished bilateral foot c/w chronic neuropathy. There is Charcot neuroarthropathy to the right foot. 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 Clinically foot improved. WBC trending down. Blood cultures reviewed and noted to be positive for MRSA. Right foot wound culture has also been obtained. She is on IV antibiotics - Vancomycin and Zosyn which she will continue. No weightbearing right foot, keep foot elevated. D/C planning - Recommend nursing placement upon discharge for wound care, antibiotics, also will need to be nonweightbearing right foot. Podiatry will continue to follow. (7) Acute osteomyelitis of left foot:
[2021-05-22] MEDS: Montelukast 10 MG Tablet PO (09:33)
[2021-05-22] MEDS: Potassium Chloride 10mEq/100mL 10 MEQ/100 ML IV.SOLN. 100 MEQ IV BOLUS ×4 (09:33→13:01)
[2021-05-22] MEDS: Potassium Chloride Oral Tablet 20 MEQ 40 MEQ PO (09:33)
[2021-05-22] MEDS: Enoxaparin 30 MG/0.3 ML Syringe SC ×2 (09:34→21:00)
[2021-05-22] MEDS: Levothyroxine 150 MCG Tablet PO (09:34)
[2021-05-22] MEDS: Baclofen 10 MG Tablet PO ×3 (09:34→16:36)
--- NOTE | 2021-05-22 10:32 | PN.HOSP_ITS ---
Subjective Subjective Patient seen and examined. She has no complaints and is more alert today. She had debridement done by podiatry yesterday. WBC is down to 21.5. Review of systems otherwise negative. Objective Data Objective Data Vital Signs: Vital Signs Temp Pulse Resp BP Pulse Ox 98.7 F 92 14 125/71 H 96 05/22/21 09:25 05/22/21 09:25 05/22/21 09:25 05/22/21 09:25 05/22/21 09:25 Oxygen Flow Rate (L/min) 2 Oxygen Delivery Method Room Air Weight: 201 lb 4.513 oz Body Mass Index (BMI) 28.8 Intake & Output: Intake and Output for Last 24 Hours 05/20/21 05/21/21 05/22/21 23:59 23:59 23:59 Intake Total 969 / 1032.76 6361.23 / 6601.23 3313.3333 / 3313.3333 Output Total 1275 / 1975 1700 / 1700 Balance 969 / 582.76 5086.23 / 4626.23 1613.3333 / 1613.3333 Lab / Micro Data Result Diagrams: 05/22/21 03:55 05/22/21 03:55 Labs: Laboratory Results - last 24 hr 05/20/21 19:40: Diff Path Review Reviewed 05/20/21 21:40: Diff Path Review Reviewed 05/21/21 04:30: Diff Path Review Reviewed 05/21/21 11:28: POC Glucose 183 H 05/21/21 12:17: POC Glucose 174 H 05/21/21 14:20: Sodium 138, Potassium 2.5 L*, Chloride 108 H, Carbon Dioxide 22.0, Anion Gap 8, BUN 18, Creatinine 0.59, Estim Creat Clear Calc 107.40, Est GFR (MDRD) Af Amer 134, Est GFR (MDRD) Non-Af 111, BUN/Creatinine Ratio 30.3 H, Glucose 232 H, Calcium 9.7 05/21/21 16:33: COVID-19 ([facility]) Not Detected 05/21/21 17:51: POC Glucose 348 H 05/21/21 19:00: S.aureus Protein A PCR POSITIVE H, MRSA (PCR) POSITIVE H 05/21/21 19:15: Vancomycin Trough 11.7 05/21/21 22:55: POC Glucose 349 H 05/22/21 01:41: POC Glucose 365 H 05/22/21 03:55: WBC 21.5 H, RBC 3.21 L, Hgb 9.8 L, Hct 27.9 L, MCV 86.9, MCH 30.5, MCHC 35.1, RDW Std Deviation 44.9 H, RDW Coeff of Amos 14.1, Plt Count 298, MPV 10.5, Neut % (Auto) Not Reportable, Absolute Neuts (auto) 17.6 H, Absolute Lymphs (auto) 2.15, Total Counted 100, Neutrophils % (Manual) 67, Band Neutrophils % 15 H, Lymphocytes % (Manual) 10 L, Monocytes % (Manual) 2, Basophils % (Manual) 1, Metamyelocytes % 1, Myelocytes % 2 H, Promyelocytes % 2 H, Diff Path Review September, Platelet Estimate ADEQUATE, RBC Morphology NORM C+C 05/22/21 03:55: Sodium 139, Potassium 2.6 L*, Chloride 108 H, Carbon Dioxide 23.0, Anion Gap 8, BUN 16, Creatinine 0.50 L, Estim Creat Clear Calc 126.74, Est GFR (MDRD) Af Amer 162, Est GFR (MDRD) Non-Af 134, BUN/Creatinine Ratio 31.7 H, Glucose 370 H, Calcium 8.3 L 05/22/21 03:55: Phosphorus 3.2 05/22/21 06:03: POC Glucose 383 H Micro: Microbiology 05/20/21 19:00 Blood Culture (Wb) - Right Hand Bacteria Detection (PCR) - Final Meth. resistant Staph. aureus 05/20/21 19:00 Blood Culture (Wb) - Right Hand Blood Culture - Preliminary Meth. resistant Staph. aureus 05/21/21 00:05 Wound - Toe Gram Stain - Final 05/20/21 19:23 Blood Culture (Wb) - Left Wrist Blood Culture - Preliminary Radiography Diagnostic Testing: Radiology Impression Lower Extremity MRI 05/20/21 22:08 Echocardiogram 05/21/21 08:34 Interpretation Summary Normal LV size. Left ventricular systolic function is normal. The estimated ejection fraction is 60 %. Ordering Physician: Celestino Jones Referring Physician: Cuong Barros Performed By: Harriet Maya, MARLA, RVT Physical Exam Const alert and oriented x3 General Appearance: cooperative Exam Limitations: no limitations HEENT normocephalic, head/scalp atraumatic, hearing grossly normal bilaterally and moist oral mucous membranes Head and Scalp: normocephalic Eyes PERRL, EOMs intact bilaterally and conjunctivae normal Neck no lymphadenopathy, supple, no JVD and no carotid bruits Resp normal respiratory effort, no retractions, no use of accessory muscles and clear to auscultation bilaterally Auscultation: Negative for crackles, rales, rhonchi or wheezes Cardio regular rate, regular rhythm, S1 normal heart sound, S2 normal heart sound, no murmurs, no rub, no gallops, no clicks and no JVD GI normal to inspection, nondistended, normoactive bowel sounds, soft to palpation, non-tender and non-distended Extremity full ROM Extremity Narrative: right foot wrapped in bandage. Peripheral Pulses: Yes pulses 2+ throughout Skin skin turgor normal, no jaundice, no petechiae and no mottling Skin Narrative: as under foot inspection Neuro oriented x3, CN's II-XII intact bilaterally, moves all extremities and no focal motor deficits Sensorium / Orientation: awake and alert Psych affect normal Psych Narrative: Appropriately interactive but peers at that she is not feeling well Assessment & Plan Assessment/Plan (1) Abscess of foot: (2) DKA, type 2: (3) Cellulitis of foot, right: (4) COVID-19: PLAN: #DKA due to noncompliance with diabetes meds * now off insulin drip. She is on her SC insulin * ISS. Accuchecks ACHS * A1C is 11.4 * # Diabetic foot wound with cellulitis of the right lower extremity * On IV vancomycin and Zosyn. blood cultures growing gram positive bacteremia * had debridement by podiatry yesterday * wbc down to 21.5 today * Wound cultures also pending. * MRI of the foot showed appearance of mild acute on chronic osteomyelitis of the second and third metatarsal bones which are surrounded by fluid and small 2.2 cm fluid collection in the subcutaneous tissue over the dorsum and base of the proximal phalanx of the great toe. Large 6.1 x 1.3 cm lobular fluid collection over the dorsum of the midfoot and moderate to severe e.g. 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 * 2D echo showed normal left ventricular size with EF of 60% and normal ventricular systolic function. No evidence of vegetation. * consult ID. * #MRSA bacteremia: management as above. #Acute metabolic encephalopathy * resolved. Patient is much more alert and communicative today * #Anion gap metabolic acidosis:resolved. #COVID-19 infection: Still on room air. On Decadron. Breathing treatments of bronchodilators. #Hypokalemia: potassium is 2.6 today. Will replace and trend #Hypocalcemia: improved to 8.3 today. #Elevated D-dimer: CTA was negative for PE. Therefore likely due to Covid. #Hypothyroidism: On Synthroid DVT prophylaxis: Lovenox Charges/Coding Visit Charges Inpatient E&M: 21671 Subs Hosp L3
[2021-05-22 11:10] LABS: Bedside Glucose 312 mg/dL (70-110)
--- NOTE | 2021-05-22 11:59 | CHAPLAIN ---
Addendum entered by Fei Maciel 05/22/21 13:41: second attempt to call patient who was now moved to [place] [id number]; phone is still not answered and voicemail comes on Original Note: Type of Pastoral Visit ___ Initial Visit ___ Follow-up Visit ___ On-call Visit ___ General Patient Visit ___ Spiritual Assessment ___ Family Conference ___ Bereavement ___ Rapid Response ___ Code Blue ___ Other (describe below) Pastoral Care Referral From ___ Patient ___ Family ___ Nurse ___ Physician ___ Christian Education Director ___ Enamel Finisher ___ Other (describe below) Sacrament/Intervention ___ Active listening ___ Anointing ___ Caodaism ___ Bereavement ___ Communion ___ Minna exploration ___ ___ Life review ___ Prayer ___ Reconciliation ___ Sacrament of Sick ___ Supportive presence ___ Wedding ___ Other (describe below) Pastoral Comments attempt to call patient by phone resulted in a hospital voicemail;
[2021-05-22 13:47] LABS: Pathologist Review Reviewed
--- NOTE | 2021-05-22 16:19 | CASEMGMT ---
Social Work Physician indicating pt will likely need SNF placement for antibiotics, wound care and pt is [facility] and currently [facility] for transfers. SW met with pt in room to discuss discharge plan. Pt is agreeable that she cannot return home in current situation and that she would be unable to get into her home. Pt lives with her daughter and two granddaughters. Pt is currently uninsured. Previous job with insurance ended in March. Pt is currently working at a new job but insurance benefits are not activated until 06/23/21. SW discussed pt financial situation at length and pt agreeable to complete Medicaid application for SNF placement. SW assisted with completion of Medicaid application and faxed it to S. SW to follow up on Wednesday to obtain pending Medicaid number. ABDOUL provided pt with a list of SNF providers including quality and resource use data. SW also informed pt that while she has a choice, options will be limited to facilities that will consider accepting pending medicaid. Pt expresses understanding of this. SW will continue to follow for SNF placement. Plan: SNF with pending medicaid. WHITNEY You
[2021-05-22 16:35] LABS: Bedside Glucose 265 mg/dL (70-110)
[2021-05-22] MEDS: 0.9% Saline Lock 10 ML Syringe IV (16:36)
[2021-05-22 21:20] LABS: Bedside Glucose 240 mg/dL (70-110)
[2021-05-23] VITALS (14 sets, daily range): BP systolic 93–138; BP diastolic 41–70; PULSE 89–107; RESP 16–18; TEMP 36.3–37.8; O2SAT 93–97; BMI 30.8
[2021-05-23] MEDS: Insulin Lispro 100 UNIT/ML INSULN.PEN SC ×3 (00:26→19:41)
[2021-05-23 00:36] LABS: Bedside Glucose 235 mg/dL (70-110)
[2021-05-23 03:40] LABS: Hematocrit 29.1 % (37-47); Hemoglobin 10.3 g/dL (12.0-15.0); Mean Corp Hgb Conc 35.4 g/dL (32-36); Mean Corpuscular Hgb 29.7 pg (27.0-32.0); Mean Corpuscular Volume 83.9 fL (81-99); Mean Platelet Vol. 10.3 fl (6.2-12.0); POSITIVE COUNT YES; POSITIVE MORPHOLOGY YES; Platelet Count 336 K/mm3 (150-450); RBC Distribution Width CV 13.4 % (11.6-14.6); RBC Distribution Width SD 41.1 fl (35.1-43.9); Red Blood Count 3.47 M/mm3 (4.2-5.4); White Blood Count 23.5 K/mm3 (4.4-11.0)
[2021-05-23 03:43] LABS: Differential Indicated MANUAL DIFF
[2021-05-23 04:07] LABS: Vancomycin, Trough Level 21.3 ug/mL (5.0-15.0)
[2021-05-23 04:14] LABS: Anion Gap 6 (5-15); BUN 10 mg/dL (7-18); BUN/Creat Ratio 23.9 RATIO (10-20); Calcium,Total 8.3 mg/dL (8.5-10.1); Chloride 108 mmol/L (98-107); Creatinine, Serum 0.42 mg/dL (0.55-1.02); EST Glomerular Filtration Rate 166 mL/min (>60); Est Glom Filt Rate - Afr Amer 201 mL/min (>60); Estimated Creatinine Clearance 150.88 ml/min; Glucose 230 mg/dL (74-106); Potassium 2.6 mmol/L (3.5-5.1); Sodium Level 139 mmol/L (136-145)
--- NOTE | 2021-05-23 04:20 | PCM.RX.CS ---
Consult Pharmacy has been consulted to manage selected antiobiotic: Vancomycin Type of Consult: Follow-up Labs: Sodium 139 mmol/L (136-145) 05/23/21 03:31 Potassium 2.6 mmol/L (3.5-5.1) L* 05/23/21 03:31 Chloride 108 mmol/L (98-107) H 05/23/21 03:31 Carbon Dioxide 25.0 mmol/L (21.0-32.0) 05/23/21 03:31 Anion Gap 6 (5-15) 05/23/21 03:31 BUN 10 mg/dL (7-18) 05/23/21 03:31 Creatinine 0.42 mg/dL (0.55-1.02) L 05/23/21 03:31 Est GFR (MDRD) Af Amer 201 mL/min (>60) 05/23/21 03:31 Est GFR (MDRD) Non-Af 166 mL/min (>60) 05/23/21 03:31 BUN/Creatinine Ratio 23.9 RATIO (10-20) H 05/23/21 03:31 Glucose 230 mg/dL (74-106) H 05/23/21 03:31 Vancomycin Trough 21.3 ug/mL (5.0-15.0) H 05/23/21 03:31 Microbiology: Microbiology 05/21/21 19:00 Wound Abcess - Right Foot Gram Stain - Final 05/21/21 19:00 Wound Abcess - Right Foot Wound Culture - Preliminary Gram positive organism 05/21/21 00:05 Wound - Toe Gram Stain - Final 05/21/21 00:05 Wound - Toe Wound Culture - Preliminary Staphylococcus species GPC Poss Enterococcus sp 05/20/21 19:00 Blood Culture (Wb) - Right Hand Bacteria Detection (PCR) - Final Meth. resistant Staph. aureus 05/20/21 19:00 Blood Culture (Wb) - Right Hand Blood Culture - Preliminary Meth. resistant Staph. aureus 05/20/21 19:23 Blood Culture (Wb) - Left Wrist Blood Culture - Preliminary Goal Trough: 15-20 mcg/mL Pharmacy Plan for Drug Dosing: Pharmacy Service will continue to monitor and adjust dosing as required. TROUGH 21.3 @ 6.5 HRS. HOLD DOSE AND DRAW RANDOM LEVEL IN 8 HOURS Follow-Up Labs: Trough Vancomycin Labs to be done on [date and time ordered]: 05/23 @ 3618
[2021-05-23 04:21] LABS: Absolute Lymphocyte Count 1.88 X10^3/uL (0.83-4.51); Lymphocyte 8 % (19-41); Metamyelocyte 2 % (0-1); Monocyte 3 % (0-10); Myelocyte 4 % (0-0); Neutrophil-Band 4 % (0-5); Neutrophil-Segmented 77 % (47-70); Platelet Estimate ADEQUATE (ADEQ); Promyelocyte 2 % (0-0); Red Cell Morphology NORM C+C NORMAL (NORM C&C); Total Cells Counted 100 (MANUAL DIFF)
[2021-05-23] MEDS: Potassium Chloride 10mEq/100mL 10 MEQ/100 ML IV.SOLN. 100 MEQ IV BOLUS ×6 (04:53→13:36)
[2021-05-23] MEDS: Potassium Chloride Oral Tablet 20 MEQ 40 MEQ PO (04:53)
[2021-05-23 06:01] LABS: Bedside Glucose 223 mg/dL (70-110)
[2021-05-23] MEDS: Baclofen 10 MG Tablet PO (08:16)
[2021-05-23] MEDS: Montelukast 10 MG Tablet PO (08:16)
[2021-05-23] MEDS: Enoxaparin 30 MG/0.3 ML Syringe SC (08:16)
[2021-05-23] MEDS: Levothyroxine 150 MCG Tablet PO (08:17)
--- NOTE | 2021-05-23 10:31 | VDLE_ITS ---
Reason For Study: Pain RIGHT GSV is normal. CFV is compressible, spontaneous, phasic, competent and demonstrates normal augmentation. FV is compressible, spontaneous, phasic, competent and demonstrates normal augmentation. POP V is compressible, spontaneous, phasic, competent and demonstrates normal augmentation. T/P Trunk is compressible. PTV is compressible. RT PerV is compressible. Procedure This is a venous duplex using B-mode, color flow and spectral Doppler. Exam performed portable in patient room. A preliminary report was called and/or faxed to [facility]. VL/Venous Duplex US, Unilateral Interpretation Summary There is no evidence of right lower extremity deep vein thrombosis. Right great saphenous vein appears patent and compressible segmentally. Ordering Physician: Danielle Zavala Referring Physician: Cuong Barros Performed By: Harriet Maya, MARLA, RVT
--- NOTE | 2021-05-23 10:42 | PN_ITS ---
Subjective Subjective Patient was seen this morning for follow up on right foot. She is sitting up in bed, she has been moved to the PCU. She relates she is feeling a little better. No fever, chills, nausea or vomiting. Objective Data Objective Data Vital Signs: Vital Signs Temp Pulse Resp BP Pulse Ox 98.3 F 89 17 128/70 H 95 05/23/21 05:11 05/23/21 07:00 05/23/21 05:11 05/23/21 05:11 05/23/21 05:11 Oxygen Flow Rate (L/min) 2 Oxygen Delivery Method Room Air Weight: 91.9 kg Body Mass Index (BMI) 28.8 Intake & Output: Intake and Output for Last 24 Hours 05/21/21 05/22/21 05/23/21 23:59 23:59 23:59 Intake Total 6361.23 / 6601.23 5675.8333 / 5675.8333 440 / 440 Output Total 1275 / 1975 1850 / 1850 300 / 300 Balance 5086.23 / 4626.23 3825.8333 / 3825.8333 140 / 140 Lab / Micro Data Result Diagrams: 05/23/21 03:31 05/23/21 03:31 Labs: Laboratory Results - last 24 hr 05/21/21 00:05: S.aureus Protein A PCR POSITIVE H, MRSA (PCR) POSITIVE H 05/22/21 03:55: Diff Path Review Reviewed 05/22/21 10:57: POC Glucose 312 H 05/22/21 16:28: POC Glucose 265 H 05/22/21 20:49: POC Glucose 240 H 05/23/21 00:24: POC Glucose 235 H 05/23/21 03:31: WBC 23.5 H, RBC 3.47 L, Hgb 10.3 L, Hct 29.1 L, MCV 83.9, MCH 29.7, MCHC 35.4, RDW Std Deviation 41.1, RDW Coeff of Amos 13.4, Plt Count 336, MPV 10.3, Neut % (Auto) Not Reportable, Absolute Neuts (auto) 19.0 H, Absolute Lymphs (auto) 1.88, Total Counted 100, Neutrophils % (Manual) 77 H, Band Neutrophils % 4, Lymphocytes % (Manual) 8 L, Monocytes % (Manual) 3, Metamyelocytes % 2 H, Myelocytes % 4 H, Promyelocytes % 2 H, Diff Path Review May foll, Platelet Estimate ADEQUATE, RBC Morphology NORM C+C 05/23/21 03:31: Vancomycin Trough 21.3 H 05/23/21 03:31: Sodium 139, Potassium 2.6 L*, Chloride 108 H, Carbon Dioxide 25.0, Anion Gap 6, BUN 10, Creatinine 0.42 L, Estim Creat Clear Calc 150.88, Est GFR (MDRD) Af Amer 201, Est GFR (MDRD) Non-Af 166, BUN/Creatinine Ratio 23.9 H, Glucose 230 H, Calcium 8.3 L 05/23/21 05:07: POC Glucose 223 H Micro: Microbiology 05/20/21 19:00 Blood Culture (Wb) - Right Hand Bacteria Detection (PCR) - Fi nal Meth. resistant Staph. aureus 05/20/21 19:00 Blood Culture (Wb) - Right Hand Blood Culture - Final Meth. resistant Staph. aureus 05/21/21 00:05 Wound - Toe Gram Stain - Final 05/21/21 00:05 Wound - Toe Wound Culture - Final Meth. resistant Staph. aureus Enterococcus faecalis 05/21/21 19:00 Wound Abcess - Right Foot Gram Stain - Final 05/21/21 19:00 Wound Abcess - Right Foot Wound Culture - Preliminary Gram positive organism 05/20/21 19:23 Blood Culture (Wb) - Left Wrist Blood Culture - Preliminary Physical Exam Const alert and no apparent distress Extremity Extremity Narrative: Right foot s/p I+D with edema and erythema, there is increased purulence from the I+D sites and appears to be proximal extension to the anterior ankle and distal anterior compartment of the leg of the abscess, otherwise there is no maloder. There is some POP to the infection sites right foot. DP and PT pulses palpable, CFT < 3 seconds to all toes right foot. Sensation significantly diminished bilateral foot c/w chronic neuropathy. There is Charcot neuroarthropathy to the right foot. 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 Clinically there is increased purulence noted to the foot and findings c/w proximal spreading of abscess to the anterior ankle and distal leg of the anterior compartment. This was discussed with her and we discussed further I+D and debridement in OR today. This was discussed with her in detail and she agreed with this plan. We will proceed with this as soon as possible. (7) Acute osteomyelitis of left foot:
--- NOTE | 2021-05-23 10:54 | PN.HOSP_ITS ---
Subjective Subjective Patient seen and examined. She complains of pain and swelling in her RLE and has pain in her calf. REview of systems is otherwise negative. Potassium today is low at 2.6, and wbc is down to 23.5. Objective Data Objective Data Vital Signs: Vital Signs Temp Pulse Resp BP Pulse Ox 98.3 F 89 17 128/70 H 95 05/23/21 05:11 05/23/21 07:00 05/23/21 05:11 05/23/21 05:11 05/23/21 05:11 Oxygen Flow Rate (L/min) 2 Oxygen Delivery Method Room Air Weight: 202 lb 9.677 oz Body Mass Index (BMI) 28.8 Intake & Output: Intake and Output for Last 24 Hours 05/21/21 05/22/21 05/23/21 23:59 23:59 23:59 Intake Total 6361.23 / 6601.23 5675.8333 / 5675.8333 540 / 540 Output Total 1275 / 1975 1850 / 1850 300 / 300 Balance 5086.23 / 4626.23 3825.8333 / 3825.8333 240 / 240 Lab / Micro Data Result Diagrams: 05/23/21 03:31 05/23/21 03:31 Labs: Laboratory Results - last 24 hr 05/21/21 00:05: S.aureus Protein A PCR POSITIVE H, MRSA (PCR) POSITIVE H 05/22/21 03:55: Diff Path Review Reviewed 05/22/21 10:57: POC Glucose 312 H 05/22/21 16:28: POC Glucose 265 H 05/22/21 20:49: POC Glucose 240 H 05/23/21 00:24: POC Glucose 235 H 05/23/21 03:31: WBC 23.5 H, RBC 3.47 L, Hgb 10.3 L, Hct 29.1 L, MCV 83.9, MCH 29.7, MCHC 35.4, RDW Std Deviation 41.1, RDW Coeff of Amos 13.4, Plt Count 336, MPV 10.3, Neut % (Auto) Not Reportable, Absolute Neuts (auto) 19.0 H, Absolute Lymphs (auto) 1.88, Total Counted 100, Neutrophils % (Manual) 77 H, Band Neutrophils % 4, Lymphocytes % (Manual) 8 L, Monocytes % (Manual) 3, Metamyelocytes % 2 H, Myelocytes % 4 H, Promyelocytes % 2 H, Diff Path Review May foll, Platelet Estimate ADEQUATE, RBC Morphology NORM C+C 05/23/21 03:31: Vancomycin Trough 21.3 H 05/23/21 03:31: Sodium 139, Potassium 2.6 L*, Chloride 108 H, Carbon Dioxide 25.0, Anion Gap 6, BUN 10, Creatinine 0.42 L, Estim Creat Clear Calc 150.88, Est GFR (MDRD) Af Amer 201, Est GFR (MDRD) Non-Af 166, BUN/Creatinine Ratio 23.9 H, Glucose 230 H, Calcium 8.3 L 05/23/21 05:07: POC Glucose 223 H Micro: Microbiology 05/20/21 19:00 Blood Culture (Wb) - Right Hand Bacteria Detection (PCR) - Final Meth. resistant Staph. aureus 05/20/21 19:00 Blood Culture (Wb) - Right Hand Blood Culture - Final Meth. resistant Staph. aureus 05/21/21 00:05 Wound - Toe Gram Stain - Final 05/21/21 00:05 Wound - Toe Wound Culture - Final Meth. resistant Staph. aureus Enterococcus faecalis 05/21/21 19:00 Wound Abcess - Right Foot Gram Stain - Final 05/21/21 19:00 Wound Abcess - Right Foot Wound Culture - Preliminary Gram positive organism 05/20/21 19:23 Blood Culture (Wb) - Left Wrist Blood Culture - Preliminary Physical Exam Const alert, oriented x3 and no apparent distress General Appearance: cooperative Exam Limitations: no limitations HEENT normocephalic, head/scalp atraumatic, hearing grossly normal bilaterally and moist oral mucous membranes Head and Scalp: normocephalic Eyes PERRL, EOMs intact bilaterally and conjunctivae normal Neck no lymphadenopathy, supple, no JVD and no carotid bruits Resp normal respiratory effort, no retractions, no use of accessory muscles and clear to auscultation bilaterally Auscultation: Negative for crackles, rales, rhonchi or wheezes Cardio regular rate, regular rhythm, S1 normal heart sound, S2 normal heart sound, no murmurs, no rub, no gallops, no clicks and no JVD GI normal to inspection, nondistended, normoactive bowel sounds, soft to palpation, non-tender and non-distended Extremity Extremity Narrative: right foot wrapped in bandage. right calf tenderness Peripheral Pulses: Yes pulses 2+ throughout Skin skin turgor normal, no jaundice, no petechiae and no mottling Skin Narrative: as under foot inspection Neuro oriented x3, CN's II-XII intact bilaterally, moves all extremities and no focal motor deficits Sensorium / Orientation: awake and alert Psych affect normal Assessment & Plan Assessment/Plan (1) Abscess of foot: (2) DKA, type 2: (3) Cellulitis of foot, right: (4) COVID-19: PLAN: #DKA due to noncompliance with diabetes meds * now off insulin drip. She is on her SC insulin 25 units daily * ISS. Accuchecks ACHS * A1C is 11.4 * patient counseled on compliance with her meds * # Diabetic foot wound with cellulitis of the right lower extremity * On IV vancomycin and Zosyn. blood cultures growing gram positive bacteremia * had debridement by podiatry; wound culture growint MRSA and Enterococcus faecalis. * wbc is 23.5 today. * blood culture growing gram positive cocci. Speciation pending * MRI of the foot showed appearance of mild acute on chronic osteomyelitis of the second and third metatarsal bones which are surrounded by fluid and small 2.2 cm fluid collection in the subcutaneous tissue over the dorsum and base of the proximal phalanx of the great toe. Large 6.1 x 1.3 cm lobular fluid collection over the dorsum of the midfoot and moderate to severe e.g. 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 * 2D echo showed normal left ventricular size with EF of 60% and normal ventricular systolic function. No evidence of vegetation. * consult ID. * will get Duplex of the RLE today due to pain and calf tenderness in RLE. * #MRSA bacteremia: management as above. #Acute metabolic encephalopathy * resolved. Patient is much more alert and communicative today * #Anion gap metabolic acidosis:resolved. #COVID-19 infection: Still on room air. On Decadron. Breathing treatments of bronchodilators. #Hypokalemia: potassium is still 2.6 today. Will replace and trend. Check Mg level #Hypocalcemia: improved to 8.3 today. #Elevated D-dimer: CTA was negative for PE. Therefore likely due to Covid. #Hypothyroidism: On Synthroid DVT prophylaxis: Lovenox Charges/Coding Visit Charges Inpatient E&M: 92879 Subs Hosp L3
[2021-05-23 11:21] LABS: Magnesium 1.8 mg/dL (1.6-2.6)
[2021-05-23 11:50] LABS: Bedside Glucose 343 mg/dL (70-110)
[2021-05-23 15:21] LABS: Bedside Glucose 324 mg/dL (70-110)
--- NOTE | 2021-05-23 16:00 | SOF_PTH ---
PATIENT: FREEMAN MOCTEZUMA LOC: MS2 U#:[id number] AGE/SX: 55/F [place] [facility] [place]: Dr. Danielle Zavala MD : [id number] BED: 1 DIS: 06/03/2021 SPEC #: [id number] RECD: 05/26/21 07:04 STATUS: WENDY REConcepcion #: [id number] ROBBY: 05/23/21 16:[address]: David Alexandre DEPT: SURGICAL PATHOLOGY RECD BY: Dayana Gonzalez ENTERED: 05/26/21 09:34 SP TYPE: SOFT TISS OTHR DR: MD Dr. Matt Ford MD Dr. Derek Brown, DO Dr. David Alexandre, DPM Dr. Siobhan Huang, MD Althea Chirinos Dr[address] CELEBR[employer] MANAGER-C Tissues: Soft tissues, NOS Procedures: Surgery Specimen Level III Comments: @ Ordering doctor for SUJOVANNA edited from to @ by CHARITY at 05/26/21 1522 @ Submitting doctor edited from to @ by CHARITY at 05/26/21 1522 HEADER OPERATION: Incision, drainage and debridement with removal PRE-OP DIAGNOSIS: 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; cellulitis of right foot; sepsis; Charcot?s joint of right foot; abscess of foot TISSUE SUBMITTED: Necrotic tissue right foot MICROSCOPIC DIAGNOSIS Necrotic tissue right foot: Pieces of skin and fibroadipose and fibroconnective tissue with necrosis, acute and chronic inflammation and abscess formation. Pretty 05/27/2021 MICROSCOPIC DESCRIPTION Slides are reviewed. GROSS DESCRIPTION Received in fixative is one container labeled with the patient's name and designated necrotic tissue right foot. The specimen consists of multiple pieces of skin and soft tissue measuring in aggregate 4.5 x 3.5 x 0.5 cm. Academic Counselor sections are submitted in two cassettes. / Pretty 05/26/21 TC:2 CPT: 18749
--- NOTE | 2021-05-23 16:53 | PCM.RX.CS ---
Consult Pharmacy has been consulted to manage selected antiobiotic: Vancomycin Type of Consult: Follow-up Suspected Infection: Skin/Soft tissue Labs: Sodium 139 mmol/L (136-145) 05/23/21 03:31 Potassium 2.6 mmol/L (3.5-5.1) L* 05/23/21 03:31 Chloride 108 mmol/L (98-107) H 05/23/21 03:31 Carbon Dioxide 25.0 mmol/L (21.0-32.0) 05/23/21 03:31 Anion Gap 6 (5-15) 05/23/21 03:31 BUN 10 mg/dL (7-18) 05/23/21 03:31 Creatinine 0.42 mg/dL (0.55-1.02) L 05/23/21 03:31 Est GFR (MDRD) Af Amer 201 mL/min (>60) 05/23/21 03:31 Est GFR (MDRD) Non-Af 166 mL/min (>60) 05/23/21 03:31 BUN/Creatinine Ratio 23.9 RATIO (10-20) H 05/23/21 03:31 Glucose 230 mg/dL (74-106) H 05/23/21 03:31 Vancomycin Trough 21.3 ug/mL (5.0-15.0) H 05/23/21 03:31 Random Vancomycin 9.0 ug/mL (0.0-15.0) 05/23/21 12:30 Microbiology: Microbiology 05/20/21 19:23 Blood Culture (Wb) - Left Wrist Blood Culture - Final Staphylococcus aureus 05/21/21 19:00 Wound Abcess - Right Foot Gram Stain - Final 05/21/21 19:00 Wound Abcess - Right Foot Wound Culture - Preliminary Staphylococcus aureus Staphylococcus species 05/20/21 19:00 Blood Culture (Wb) - Right Hand Bacteria Detection (PCR) - Final Meth. resistant Staph. aureus 05/20/21 19:00 Blood Culture (Wb) - Right Hand Blood Culture - Final Meth. resistant Staph. aureus 05/21/21 00:05 Wound - Toe Gram Stain - Final 05/21/21 00:05 Wound - Toe Wound Culture - Final Meth. resistant Staph. aureus Enterococcus faecalis Pharmacy Plan for Drug Dosing: VANCOMYCIN LEVEL RECEIVED Current Vancomycin Dose: HOLD, LAST DOSE OF 1250MG GIVEN 05/22 @ 2100 Number of Doses Received: 7 Vancomycin Level: 9 MG/DL Hours Since Last Dose: 15.5 Renal Function: SCR 0.42, CRCL 150 ML/MIN Renal Function Trend: STABLE Lab/Micro: MRSA AND ENTEROCOCCUS IN WOUND CX Vancomycin Plan/Comments: START 1000MG Q8H @ 1700 AND GET A TROUGH PRIOR TO 4TH DOSE. Pending Level: 05/24/21 @ 1630 Pharmacy Service will continue to monitor and adjust dosing as required.
[2021-05-23] MEDS: Vancomycin IV 1,000 MG/200 ML BAG 200 MG IV (17:25)
--- NOTE | 2021-05-23 18:28 | PCM.OPRPT ---
Report of Operation Date of Procedure: 05/23/21 Pre-Operative Diagnosis: Abscess, cellulitis, necrotic ulceration down to fascia layer, and osteomyelitis right foot Post-Operative Diagnosis: Same Surgery/Procedure Performed:: Incision, drainage, and debridement right foot Surgeon: David Alexandre delinquency prevention social worker: None Type of Anesthesia: Local MAC Specimen's removed: Debrided soft tissue from right foot sent to pathology and microbiology Estimated Blood Loss (mL): 100mL Description of Procedure: Indications: Patient is a 55 year old femail with uncontrolled diabetes who presented with severe infection right foot. There was noted to be abscess formation, elevated WBC, with red swollen foot and ankle, she was also found to have charcot neuroarthopathy. Bedside I+D was performed on 05/21/2021 which did help, however today it was noted there was worsening to the foot and ankle with proximal streading of the infection. Due to this we discussed OR I+D with debridement of the right foot. We discussed this is in detail. We reviewed the rationale of this, as well as the possible benefits vs risks, goals, expectations as well. We discussed the risks include but are not limited to pain, worsening infection, bleeding, significant blood loss, need for further surgery, loss of function, CRPS, disability, loss of limb, and loss of life. She is at high risk of limb loss, she relates she would like to save as much of foot as possible and try to avoid any amputation. The consent form was reviewed with her and she freely signed it. Also with patient's permission I did speak and review this with patient daughter Caron. No guarantees were given nor implied. No warranties were given. Operative Procedure: The patient was brought back into the operating room and was placed on the operating room table in the supine position. She was secured to the operating room table with a safety belt around her waist. A timeout was performed and she was properly identified and the surgical plan was confirmed. The patient was already on IV antibiotics. The patient received MAC anesthesia per the anesthesia team. A total of 20mL of 0.5% Bupivacaine plain was given as a local block around the right foot and ankle after the overlying skin was cleansed with 70% Isopropyl alcohol. The right foot was scrubbed, prepped, and draped in the usual fashion. Further attention was directed to the right foot - there was previous I+D noted to the dorsal midfoot, dorsal 1st toe, medial ankle and lateral hindfoot - there was purulence noted from all of the sites, as well as new abscess formation to the anterior ankle and distal anterior leg. An incision was made from the dorsal 1st toe to the midfoot extending to the anterior ankle and anterior compartment of the distal leg - there was significant purulence noted once this was completed tracking along the extensor tendons of the dorsal foot, ankle and distal leg, there was significant abscess along the entire area, the abscess extended laterally to the hindfoot and medially to the tarsal tunnel area. A second incision was made to the dorsal lateral midfoot, and also the previous incision to the medial ankle was extended proximally and distally - there was significant purulence noted once this was done. Also further debridement was completed to the lateral hindfoot ulceration down to tendon and fascia layer and incision was made dorsally and proximal along the hindfoot - there was significant nonviable and necrotic tissue and purulence. There was significant nonviable and necrotic soft tissue was all debrided in excisional fashion using a 15 blade and ronguer removing the nonviable necrotic subcutaneous and fascia layer - this was debrided down to bone, there was some purulence noted to the calcaneal cuboid joint which was incised and drained. The abscess was all excised in sharp fashion from the foot and ankle as well as distal anterior leg. All purulence was drained. The sites were flushed out with copious amounts of normal saline solution. The remaining tissues were noted to be healthy and viable, the extensor tendons and peroneal tendons were viable. Area debrided was 23cm x 15cm and down to bone as noted above, in excisional fashion. A dressing was applied via wet to dry betadine gauze, dry gauze, kerlix, abd pads and verito bandages. Hemostasis was obtained via light pressure and gauze. The patient tolerated the procedure well and the anesthesia well with no complications. She was transported from the operating room to the recovery room with vital signs stable and in good condition. Podiatry will continue to follow. Grafts/Implants Used: None Complications None
[2021-05-23 18:57] LABS: Hemoglobin 8.9 g/dL (12.0-15.0)
[2021-05-23 19:15] LABS: Bedside Glucose 248 mg/dL (70-110)
[2021-05-23] MEDS: 0.9% Saline Lock 10 ML Syringe IV (19:17)
[2021-05-23] MEDS: oxyCODONE 5 MG Tablet PO (19:37)
[2021-05-23] MEDS: Acetaminophen 325 MG Tablet 650 MG PO (19:38)
--- NOTE | 2021-05-23 19:48 | NURSING ---
dr villalta contact [facility] to be held this pm dose
[2021-05-23 21:16] LABS: Bedside Glucose 242 mg/dL (70-110)
--- NOTE | 2021-05-23 21:54 | NURSING ---
RT foot remains elevated. Sebastian bandage dry intact. Pt denies any pain. toes warm mobile and cap refill less then 3 sec
[2021-05-24] VITALS (9 sets, daily range): BP systolic 113–116; BP diastolic 50–53; PULSE 89–101; RESP 17–18; TEMP 36.4–37.2; O2SAT 94–97
[2021-05-24] MEDS: Vancomycin IV 1,000 MG/200 ML BAG 100 MG IV (01:02)
[2021-05-24] MEDS: 0.9% Saline Lock 10 ML Syringe IV ×2 (01:03→06:31)
[2021-05-24 06:27] LABS: Hematocrit 23.6 % (37-47); Mean Corp Hgb Conc 33.9 g/dL (32-36); Mean Corpuscular Hgb 30.4 pg (27.0-32.0); Mean Corpuscular Volume 89.7 fL (81-99); Mean Platelet Vol. 10.4 fl (6.2-12.0); POSITIVE COUNT YES; POSITIVE MORPHOLOGY YES; Platelet Count 323 K/mm3 (150-450); RBC Distribution Width CV 14.6 % (11.6-14.6); RBC Distribution Width SD 47.4 fl (35.1-43.9); Red Blood Count 2.63 M/mm3 (4.2-5.4); White Blood Count 20.5 K/mm3 (4.4-11.0)
[2021-05-24] MEDS: Insulin Lispro 100 UNIT/ML INSULN.PEN SC ×4 (06:30→20:23)
[2021-05-24 06:32] LABS: Differential Indicated MANUAL DIFF
[2021-05-24 06:50] LABS: Bedside Glucose 249 mg/dL (70-110)
[2021-05-24 06:55] LABS: Anion Gap 4 (5-15); BUN 19 mg/dL (7-18); BUN/Creat Ratio 52.5 RATIO (10-20); Chloride 105 mmol/L (98-107); Creatinine, Serum 0.36 mg/dL (0.55-1.02); EST Glomerular Filtration Rate 197 mL/min (>60); Est Glom Filt Rate - Afr Amer 238 mL/min (>60); Estimated Creatinine Clearance 176.02 ml/min; Glucose 267 mg/dL (74-106); Potassium 3.5 mmol/L (3.5-5.1); Sodium Level 137 mmol/L (136-145)
[2021-05-24 07:43] LABS: Eosinophil 2 % (0-5); Lymphocyte 11 % (19-41); Metamyelocyte 2 % (0-1); Monocyte 1 % (0-10); Neutrophil-Band 1 % (0-5); Neutrophil-Segmented 83 % (47-70); Platelet Estimate ADEQUATE (ADEQ); Total Cells Counted 100 (MANUAL DIFF)
[2021-05-24 07:44] LABS: Hypochromasia 1+; Red Cell Morphology N CYTIC NORMAL (NORM C&C)
--- NOTE | 2021-05-24 09:31 | PCM.PROGNOTE ---
Subjective Subjective Patient was seen this morning for follow up on right foot/ankle. She is resting comfortably in bed, no fever, chills, nausea or vomiting. Objective Data Objective Data Vital Signs: Vital Signs Temp Pulse Resp BP Pulse Ox 99.0 F 100 18 115/52 L 94 05/24/21 08:13 05/24/21 08:13 05/24/21 08:13 05/24/21 08:13 05/24/21 08:13 Oxygen Flow Rate (L/min) 2 Oxygen Delivery Method Room Air Weight: 91.7 kg Body Mass Index (BMI) 30.8 Intake & Output: Intake and Output for Last 24 Hours 05/22/21 05/23/21 05/24/21 23:59 23:59 23:59 Intake Total 5675.8333 / 5675.8333 2280 / 2280 640 / 640 Output Total 1850 / 1850 300 / 300 Balance 3825.8333 / 3825.8333 1979 / 1979 640 / 640 Lab / Micro Data Result Diagrams: 05/24/21 05:26 05/24/21 05:26 Labs: Laboratory Results - last 24 hr 05/21/21 19:00: S.aureus Protein A PCR POSITIVE H, MRSA (PCR) POSITIVE H 05/23/21 03:31: Magnesium 1.8 05/23/21 11:43: POC Glucose 343 H 05/23/21 12:30: Random Vancomycin 9.0 05/23/21 15:16: POC Glucose 324 H 05/23/21 18:49: Hgb 8.9 L, Hct 26.0 L 05/23/21 19:00: POC Glucose 248 H 05/23/21 19:38: POC Glucose 242 H 05/24/21 05:26: Sodium 137, Potassium 3.5, Chloride 105, Carbon Dioxide 28.0, Anion Gap 4 L, BUN 19 H, Creatinine 0.36 L, Estim Creat Clear Calc 176.02, Est GFR (MDRD) Af Amer 238, Est GFR (MDRD) Non-Af 197, BUN/Creatinine Ratio 52.5 H, Glucose 267 H, Calcium 8.0 L 05/24/21 05:26: WBC 20.5 H, RBC 2.63 L, Hgb 8.0 L, Hct 23.6 L, MCV 89.7 D, MCH 30.4, MCHC 33.9, RDW Std Deviation 47.4 H, RDW Coeff of Amos 14.6, Plt Count 323, MPV 10.4, Neut % (Auto) Not Reportable, Total Counted 100, Neutrophils % (Manual) 83 H, Band Neutrophils % 1, Lymphocytes % (Manual) 11 L, Monocytes % (Manual) 1, Eosinophils % (Manual) 2, Metamyelocytes % 2 H, Diff Path Review May foll, Platelet Estimate ADEQUATE, RBC Morphology N CYTIC, Hypochromasia 1+ 05/24/21 06:29: POC Glucose 249 H Micro: Microbiology 05/21/21 19:00 Wound Abcess - Right Foot Gram Stain - Final 05/21/21 19:00 Wound Abcess - Right Foot Wound Culture - Final Meth. resistant Staph. aureus 05/21/21 19:00 Wound Abcess - Right Foot Anaerobic Culture - Preliminary Checking for anaerobes, further studies to follow. 05/20/21 19:23 Blood Culture (Wb) - Left Wrist Blood Culture - Final Staphylococcus aureus 05/20/21 19:00 Blood Culture (Wb) - Right Hand Bacteria Detection (PCR) - Final Meth. resistant Staph. aureus 05/20/21 19:00 Blood Culture (Wb) - Right Hand Blood Culture - Final Meth. resistant Staph. aureus 05/21/21 00:05 Wound - Toe Gram Stain - Final 05/21/21 00:05 Wound - Toe Wound Culture - Final Meth. resistant Staph. aureus Enterococcus faecalis Physical Exam Const alert and no apparent distress Extremity Extremity Narrative: Right foot s/p wide I+D debridement with exposed extensor tendons and anterior tibial tendon dorsal foot with significantly less edema and minimal to no erythema, there is no purulence. There are no new areas of visible abscess formation to the right foot, there is no maloder, no crepitus, no proximal streaking noted. There is very minimal to no POP or pain on ROM to the right foot. DP and PT pulses palpable, CFT < 3 seconds to all toes right foot. Sensation significantly diminished bilateral foot c/w chronic neuropathy. There is Charcot neuroarthropathy to the right foot. 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 s/p wide I+D debridement right foot. Clinically foot much improved. WBC trending down again. hgb 8.0 - no active bleeding from foot at this time. Blood cultures reviewed and noted to be positive for MRSA. Right foot wound culture has also been obtained and reviewed, cultures from I+D debridement yesterday pending. She is on IV antibiotics which she will continue. No weightbearing right foot, keep foot elevated. D/C planning - Recommend nursing placement upon discharge for wound care, antibiotics, also will need to be nonweightbearing right foot. Podiatry will continue to follow. (7) Acute osteomyelitis of left foot:
[2021-05-24] MEDS: Vancomycin IV 1,000 MG/200 ML BAG 200 MG IV ×2 (09:39→16:36)
[2021-05-24] MEDS: Enoxaparin 30 MG/0.3 ML Syringe SC ×2 (09:45→20:22)
[2021-05-24] MEDS: Montelukast 10 MG Tablet PO (09:45)
[2021-05-24] MEDS: Levothyroxine 150 MCG Tablet PO (09:45)
[2021-05-24] MEDS: Baclofen 10 MG Tablet PO ×3 (09:45→16:33)
--- NOTE | 2021-05-24 10:11 | PN.HOSP_ITS ---
Subjective Subjective Patient seen and examined. She complained of pain in her RLE. She has no other complaints. She had further debridement done by podiatry yesterday. Review of systems otherwise negative. Objective Data Objective Data Vital Signs: Vital Signs Temp Pulse Resp BP Pulse Ox 99.0 F 100 18 115/52 L 94 05/24/21 08:13 05/24/21 08:13 05/24/21 08:13 05/24/21 08:13 05/24/21 08:13 Oxygen Flow Rate (L/min) 2 Oxygen Delivery Method Room Air Weight: 202 lb 2.622 oz Body Mass Index (BMI) 30.8 Intake & Output: Intake and Output for Last 24 Hours 05/22/21 05/23/21 05/24/21 23:59 23:59 23:59 Intake Total 5675.8333 / 5675.8333 2280 / 2280 640 / 640 Output Total 1850 / 1850 300 / 300 Balance 3825.8333 / 3825.8333 1979 / 1979 640 / 640 Lab / Micro Data Result Diagrams: 05/24/21 05:26 05/24/21 05:26 Labs: Laboratory Results - last 24 hr 05/21/21 19:00: S.aureus Protein A PCR POSITIVE H, MRSA (PCR) POSITIVE H 05/23/21 03:31: Magnesium 1.8 05/23/21 11:43: POC Glucose 343 H 05/23/21 12:30: Random Vancomycin 9.0 05/23/21 15:16: POC Glucose 324 H 05/23/21 18:49: Hgb 8.9 L, Hct 26.0 L 05/23/21 19:00: POC Glucose 248 H 05/23/21 19:38: POC Glucose 242 H 05/24/21 05:26: Sodium 137, Potassium 3.5, Chloride 105, Carbon Dioxide 28.0, Anion Gap 4 L, BUN 19 H, Creatinine 0.36 L, Estim Creat Clear Calc 176.02, Est GFR (MDRD) Af Amer 238, Est GFR (MDRD) Non-Af 197, BUN/Creatinine Ratio 52.5 H, Glucose 267 H, Calcium 8.0 L 05/24/21 05:26: WBC 20.5 H, RBC 2.63 L, Hgb 8.0 L, Hct 23.6 L, MCV 89.7 D, MCH 30.4, MCHC 33.9, RDW Std Deviation 47.4 H, RDW Coeff of Amos 14.6, Plt Count 323, MPV 10.4, Neut % (Auto) Not Reportable, Total Counted 100, Neutrophils % (Manual) 83 H, Band Neutrophils % 1, Lymphocytes % (Manual) 11 L, Monocytes % (Manual) 1, Eosinophils % (Manual) 2, Metamyelocytes % 2 H, Diff Path Review May foll, Platelet Estimate ADEQUATE, RBC Morphology N CYTIC, Hypochromasia 1+ 05/24/21 06:29: POC Glucose 249 H Micro: Microbiology 05/21/21 19:00 Wound Abcess - Right Foot Gram Stain - Final 05/21/21 19:00 Wound Abcess - Right Foot Wound Culture - Final Meth. resistant Staph. aureus 05/21/21 19:00 Wound Abcess - Right Foot Anaerobic Culture - Preliminary Checking for anaerobes, further studies to follow. 05/20/21 19:23 Blood Culture (Wb) - Left Wrist Blood Culture - Final Staphylococcus aureus 05/20/21 19:00 Blood Culture (Wb) - Right Hand Bacteria Detection (PCR) - Final Meth. resistant Staph. aureus 05/20/21 19:00 Blood Culture (Wb) - Right Hand Blood Culture - Final Meth. resistant Staph. aureus 05/21/21 00:05 Wound - Toe Gram Stain - Final 05/21/21 00:05 Wound - Toe Wound Culture - Final Meth. resistant Staph. aureus Enterococcus faecalis Physical Exam Const alert, oriented x3 and no apparent distress General Appearance: cooperative Exam Limitations: no limitations HEENT normocephalic, head/scalp atraumatic, hearing grossly normal bilaterally and moist oral mucous membranes Head and Scalp: normocephalic Eyes PERRL, EOMs intact bilaterally and conjunctivae normal Eyes Narrative: No scleral icterus Neck no lymphadenopathy, supple, no JVD and no carotid bruits Neck Narrative: Trachea midline, no thyroid enlargement Resp normal respiratory effort, no retractions, no use of accessory muscles and clear to auscultation bilaterally Auscultation: Negative for crackles, rales, rhonchi or wheezes Cardio regular rate, regular rhythm, S1 normal heart sound, S2 normal heart sound, no murmurs, no rub, no gallops, no clicks and no JVD GI normal to inspection, nondistended, normoactive bowel sounds, soft to palpation, non-tender and non-distended Extremity full ROM Extremity Narrative: right foot wrapped in bandage. Peripheral Pulses: Yes pulses 2+ throughout Skin skin turgor normal, no jaundice, no petechiae and no mottling Skin Narrative: as under foot inspection Neuro oriented x3, CN's II-XII intact bilaterally, moves all extremities and no focal motor deficits Sensorium / Orientation: awake and alert Psych affect normal Assessment & Plan Assessment/Plan (1) Abscess of foot: (2) DKA, type 2: (3) Cellulitis of foot, right: (4) COVID-19: PLAN: #DKA due to noncompliance with diabetes meds * DKA resolved. She is on her SC insulin 25 units daily * ISS. Accuchecks ACHS * A1C is 11.4 * patient counseled on compliance with her meds * # Diabetic foot wound with cellulitis of the right lower extremity * On IV vancomycin and Zosyn. blood cultures growing gram positive bacteremia * had debridement by podiatry; wound culture growint MRSA and Enterococcus faecalis. * wbc is 20 today * had repeat debridement by podiatry yesterday. * blood culture growing MRSA * MRI of the foot showed appearance of mild acute on chronic osteomyelitis of the second and third metatarsal bones which are surrounded by fluid and small 2.2 cm fluid collection in the subcutaneous tissue over the dorsum and base of the proximal phalanx of the great toe. Large 6.1 x 1.3 cm lobular fluid collection over the dorsum of the midfoot and moderate to severe e.g. 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 * 2D echo showed normal left ventricular size with EF of 60% and normal ventricular systolic function. No evidence of vegetation. * ID consulted; awaiting rec's. * * #MRSA bacteremia: management as above. #Acute on chronic anemia * hemoglobin is down to 8 today. ws 8.9 yesterday * due to acute blood loss from surgery * monitor, and transfue if Hb <7 * #Anion gap metabolic acidosis:resolved. #COVID-19 infection: Still on room air. On Decadron. Breathing treatments of bronchodilators. #Hypokalemia: potassium is still 2.6 today. Will replace and trend. Check Mg level #Hypocalcemia: resolved #Elevated D-dimer: CTA was negative for PE. #Hypothyroidism: On Synthroid DVT prophylaxis: Lovenox Charges/Coding Visit Charges Inpatient E&M: 07817 Subs Hosp L3
[2021-05-24] MEDS: oxyCODONE 5 MG Tablet PO (11:07)
[2021-05-24] MEDS: Acetaminophen 325 MG Tablet 650 MG PO (11:07)
[2021-05-24 11:45] LABS: Bedside Glucose 353 mg/dL (70-110)
[2021-05-24 14:14] LABS: Absolute Lymphocyte Count 2.25 X10^3/uL (0.83-4.51); Absolute Neutrophil Count 17.2 X10^3/uL (2.0-7.7); Monocyte# 2.25 X10^3/uL
[2021-05-24 15:58] LABS: Vancomycin, Trough Level 14.9 ug/mL (5.0-15.0)
[2021-05-24 17:05] LABS: Bedside Glucose 338 mg/dL (70-110)
--- NOTE | 2021-05-24 17:11 | PCM.RX.CS ---
Consult Pharmacy has been consulted to manage selected antiobiotic: Vancomycin Type of Consult: Follow-up Suspected Infection: Skin/Soft tissue, Bacteremia Prior Doses of Antibiotics Received/Current Regimen: currently on vanc 1000mg IV q8h Labs: Sodium 137 mmol/L (136-145) 05/24/21 05:26 Potassium 3.5 mmol/L (3.5-5.1) 05/24/21 05:26 Chloride 105 mmol/L (98-107) 05/24/21 05:26 Carbon Dioxide 28.0 mmol/L (21.0-32.0) 05/24/21 05:26 Anion Gap 4 (5-15) L 05/24/21 05:26 BUN 19 mg/dL (7-18) H 05/24/21 05:26 Creatinine 0.36 mg/dL (0.55-1.02) L 05/24/21 05:26 Est GFR (MDRD) Af Amer 238 mL/min (>60) 05/24/21 05:26 Est GFR (MDRD) Non-Af 197 mL/min (>60) 05/24/21 05:26 BUN/Creatinine Ratio 52.5 RATIO (10-20) H 05/24/21 05:26 Glucose 267 mg/dL (74-106) H 05/24/21 05:26 Vancomycin Trough 14.9 ug/mL (5.0-15.0) 05/24/21 15:20 Random Vancomycin 9.0 ug/mL (0.0-15.0) 05/23/21 12:30 Microbiology: Microbiology 05/23/21 18:30 Tissue - Right Foot Gram Stain - Final 05/23/21 18:30 Tissue - Right Foot Wound Culture - Preliminary Staphylococcus aureus 05/21/21 19:00 Wound Abcess - Right Foot Gram Stain - Final 05/21/21 19:00 Wound Abcess - Right Foot Wound Culture - Final Meth. resistant Staph. aureus 05/21/21 19:00 Wound Abcess - Right Foot Anaerobic Culture - Preliminary Checking for anaerobes, further studies to follow. 05/20/21 19:23 Blood Culture (Wb) - Left Wrist Blood Culture - Final Staphylococcus aureus 05/20/21 19:00 Blood Culture (Wb) - Right Hand Bacteria Detection (PCR) - Final Meth. resistant Staph. aureus 05/20/21 19:00 Blood Culture (Wb) - Right Hand Blood Culture - Final Meth. resistant Staph. aureus 05/21/21 00:05 Wound - Toe Gram Stain - Final 05/21/21 00:05 Wound - Toe Wound Culture - Final Meth. resistant Staph. aureus Enterococcus faecalis Weight used for dosin.7 kg Estimated Creatinine Clearance: 176ml/min Goal Trough: 15-20 mcg/mL Pharmacy Plan for Drug Dosing: The vanc trough drawn at 15:20 this afternoon (approx 6 hours after the previous dose) came back as 14.9. It was drawn about an hour early so the level would have been a little lower if drawn closer to 7 1/2 to 8 hours instead of 6 hours. However, since the previous dose of 1250mg q8h resulted in a trough above 20, will leave the dose at 1000mg IV q8h for now and recheck another trough before the morning dose in 2 days to see if it keeps going up into the goal range (it is just outside the goal range at this point). Pharmacy Service will continue to monitor and adjust dosing as required. Follow-Up Labs: Trough Vancomycin Labs to be done on [date and time ordered]: 05/26/21 08:30
[2021-05-24 20:35] LABS: Bedside Glucose 298 mg/dL (70-110)
[2021-05-25] VITALS (10 sets, daily range): BP systolic 108–127; BP diastolic 56–63; PULSE 49–102; RESP 16–18; TEMP 36.6–37.6; O2SAT 94–98
[2021-05-25] MEDS: Vancomycin IV 1,000 MG/200 ML BAG 200 MG IV ×3 (01:12→16:14)
[2021-05-25] MEDS: 0.9% Saline Lock 10 ML Syringe IV ×2 (01:12→20:07)
[2021-05-25 06:26] LABS: Absolute Lymphocyte Count 2.76 X10^3/uL (0.83-4.51); Absolute Neutrophil Count 16.7 X10^3/uL (2.0-7.7); Basophil# 0.12 X10^3/uL; Basophil% 0.6 % (0-1); Eosinophil# 0.15 X10^3/uL; Eosinophils% 0.7 % (0-5); Hematocrit 23.2 % (37-47); Hemoglobin 7.7 g/dL (12.0-15.0); Lymphocyte # 2.76 X10^3/ul (0.83-4.51); Lymphocyte % 12.8 % (19-41); Mean Corp Hgb Conc 33.2 g/dL (32-36); Mean Corpuscular Hgb 30.6 pg (27.0-32.0); Mean Corpuscular Volume 92.1 fL (81-99); Mean Platelet Vol. 10.1 fl (6.2-12.0); Monocyte# 0.85 X10^3/uL; Monocyte% 3.9 % (0-10); NRBC Flagged by Analyzer 0 % (0-5); Neutrophil # 16.72 X10^3/uL (2.7-7.7); Neutrophil % 77.7 % (47-70); Platelet Count 409 K/mm3 (150-450); RBC Distribution Width CV 14.4 % (11.6-14.6); RBC Distribution Width SD 47.3 fl (35.1-43.9); Red Blood Count 2.52 M/mm3 (4.2-5.4); White Blood Count 21.5 K/mm3 (4.4-11.0)
[2021-05-25] MEDS: Insulin Lispro 100 UNIT/ML INSULN.PEN SC ×4 (06:43→20:10)
[2021-05-25 06:50] LABS: Bedside Glucose 228 mg/dL (70-110)
[2021-05-25 06:53] LABS: Anion Gap 7 (5-15); BUN 11 mg/dL (7-18); BUN/Creat Ratio 28.5 RATIO (10-20); Calcium,Total 7.9 mg/dL (8.5-10.1); Chloride 102 mmol/L (98-107); Creatinine, Serum 0.39 mg/dL (0.55-1.02); EST Glomerular Filtration Rate 183 mL/min (>60); Est Glom Filt Rate - Afr Amer 221 mL/min (>60); Estimated Creatinine Clearance 162.48 ml/min; Glucose 251 mg/dL (74-106); Sodium Level 137 mmol/L (136-145)
[2021-05-25] MEDS: Montelukast 10 MG Tablet PO (09:38)
[2021-05-25] MEDS: Levothyroxine 150 MCG Tablet PO (09:38)
[2021-05-25] MEDS: Baclofen 10 MG Tablet PO ×3 (09:38→16:01)
[2021-05-25] MEDS: Enoxaparin 30 MG/0.3 ML Syringe SC ×2 (09:40→20:09)
--- NOTE | 2021-05-25 10:55 | PN_ITS ---
Subjective Subjective Patient was seen this moring for follow up on right foot/ankle, she is resting in bed. Noted temp is 99.6F. WBC remains elevated. She has no new complaints. Objective Data Objective Data Vital Signs: Vital Signs Temp Pulse Resp BP Pulse Ox 99.6 F H 96 16 124/61 H 94 05/25/21 08:30 05/25/21 08:30 05/25/21 08:30 05/25/21 08:30 05/25/21 08:30 Oxygen Flow Rate (L/min) 5 Oxygen Delivery Method Room Air Weight: 90.1 kg Body Mass Index (BMI) 30.8 Intake & Output: Intake and Output for Last 24 Hours 05/23/21 05/24/21 05/25/21 23:59 23:59 23:59 Intake Total 2280 / 2280 1640 / 1640 200 / 200 Output Total 300 / 300 Balance 1979 / 1979 1640 / 1640 200 / 200 Lab / Micro Data Result Diagrams: 05/25/21 05:50 05/25/21 05:50 Labs: Laboratory Results - last 24 hr 05/24/21 05:26: Absolute Neuts (auto) 17.2 H, Absolute Lymphs (auto) 2.25 05/24/21 11:26: POC Glucose 353 H 05/24/21 15:20: Vancomycin Trough 14.9 05/24/21 16:30: POC Glucose 338 H 05/24/21 20:21: POC Glucose 298 H 05/25/21 05:50: Sodium 137, Potassium 3.0 L, Chloride 102, Carbon Dioxide 28.0, Anion Gap 7, BUN 11, Creatinine 0.39 L, Estim Creat Clear Calc 162.48, Est GFR (MDRD) Af Amer 221, Est GFR (MDRD) Non-Af 183, BUN/Creatinine Ratio 28.5 H, Glucose 251 H, Calcium 7.9 L 05/25/21 05:50: WBC 21.5 H, RBC 2.52 L, Hgb 7.7 L, Hct 23.2 L, MCV 92.1, MCH 30.6, MCHC 33.2, RDW Std Deviation 47.3 H, RDW Coeff of Amos 14.4, Plt Count 409, MPV 10.1, Immature Gran % (Auto) 4.300 H, Neut % (Auto) 77.7 H, Lymph % (Auto) 12.8 L, [place] % (Auto) 3.9, Eos % (Auto) 0.7, Baso % (Auto) 0.6, Absolute Neuts (auto) 16.7 H, Absolute Lymphs (auto) 2.76, Nucleated RBC % 0 05/25/21 06:41: POC Glucose 228 H Micro: Microbiology 05/23/21 18:30 Tissue - Right Foot Gram Stain - Final 05/23/21 18:30 Tissue - Right Foot Wound Culture - Final Meth. resistant Staph. aureus 05/21/21 19:00 Wound Abcess - Right Foot Gram Stain - Final 05/21/21 19:00 Wound Abcess - Right Foot Wound Culture - Final Meth. resistant Staph. aureus 05/21/21 19:00 Wound Abcess - Right Foot Anaerobic Culture - Preliminary Checking for anaerobes, further studies to follow. 05/20/21 19:23 Blood Culture (Wb) - Left Wrist Blood Culture - Final Staphylococcus aureus 05/20/21 19:00 Blood Culture (Wb) - Right Hand Bacteria Detection (PCR) - Final Meth. resistant Staph. aureus 05/20/21 19:00 Blood Culture (Wb) - Right Hand Blood Culture - Final Meth. resistant Staph. aureus 05/21/21 00:05 Wound - Toe Gram Stain - Final 05/21/21 00:05 Wound - Toe Wound Culture - Final Meth. resistant Staph. aureus Enterococcus faecalis Radiography Diagnostic Testing: Radiology Impression Venous Doppler Study 05/23/21 10:31 Interpretation Summary There is no evidence of right lower extremity deep vein thrombosis. Right great saphenous vein appears patent and compressible segmentally. Ordering Physician: Danielle Zavala Referring Physician: Cuong Barros Performed By: Harriet Maya, MARLA, RVT Physical Exam Const alert and no apparent distress Extremity Extremity Narrative: Right foot and anterior ankle s/p wide I+D debridement with exposed extensor tendons and anterior tibial tendon dorsal foot with significantly less edema today, there is no erythema, there is no purulence to the sites but there is noted to be some purulence to the lateral hindfoot ulceration which was expressed and milked out today. There are no new areas of visible abscess formation to the right foot, there is some slight ecchymosis to the anterior leg, there is no maloder, no crepitus, no proximal streaking noted. There is very minimal to no POP or pain on ROM to the right foot. DP and PT pulses palpable, CFT < 3 seconds to all toes right foot. Sensation significantly diminished bilateral foot c/w chronic neuropathy. There is Charcot neuroarthropathy to the right foot. 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 s/p wide I+D debridement right foot and ankle. Clinically overall foot/ankle much improved. WBC at 21.5. hgb - no active bleeding from foot at this time. Blood cultures reviewed and noted to be positive for MRSA. Right foot wound culture has also been obtained and reviewed - noted MRSA and entercoccus. She is on IV antibiotics Vancomycin which she will continue. We will need to continue to closely monitor foot/ankle/leg. Dressing changes: today applied clean, sterile normal saline wet to dry gauze, kerlix, abd pads and verito dressing - change BID via dakin's wet to dry. No weightbearing right foot, keep foot elevated. D/C planning - Recommend nursing placement upon discharge for wound care, antibiotics, also will need to be nonweightbearing right foot. Podiatry will continue to follow. (7) Acute osteomyelitis of left foot:
[2021-05-25 11:30] LABS: Bedside Glucose 247 mg/dL (70-110)
--- NOTE | 2021-05-25 12:04 | PN.HOSP_ITS ---
Subjective Subjective Patient seen and examined. Her pain is well controlled. She has no active complaints. She has a mild fever of 99.6 Fahrenheit today. Review of systems otherwise negative. WBC today is 21.5 her hemoglobin is 7.7. Potassium is also 3.0. Objective Data Objective Data Vital Signs: Vital Signs Temp Pulse Resp BP Pulse Ox 99.6 F H 96 16 124/61 H 94 05/25/21 08:30 05/25/21 08:30 05/25/21 08:30 05/25/21 08:30 05/25/21 08:30 Oxygen Flow Rate (L/min) 5 Oxygen Delivery Method Room Air Weight: 198 lb 10.184 oz Body Mass Index (BMI) 30.8 Intake & Output: Intake and Output for Last 24 Hours 05/23/21 05/24/21 05/25/21 23:59 23:59 23:59 Intake Total 2280 / 2280 1640 / 1640 200 / 200 Output Total 300 / 300 Balance 1979 / 1979 1640 / 1640 200 / 200 Lab / Micro Data Result Diagrams: 05/25/21 05:50 05/25/21 05:50 Labs: Laboratory Results - last 24 hr 05/24/21 05:26: Absolute Neuts (auto) 17.2 H, Absolute Lymphs (auto) 2.25 05/24/21 15:20: Vancomycin Trough 14.9 05/24/21 16:30: POC Glucose 338 H 05/24/21 20:21: POC Glucose 298 H 05/25/21 05:50: Sodium 137, Potassium 3.0 L, Chloride 102, Carbon Dioxide 28.0, Anion Gap 7, BUN 11, Creatinine 0.39 L, Estim Creat Clear Calc 162.48, Est GFR (MDRD) Af Amer 221, Est GFR (MDRD) Non-Af 183, BUN/Creatinine Ratio 28.5 H, Glucose 251 H, Calcium 7.9 L 05/25/21 05:50: WBC 21.5 H, RBC 2.52 L, Hgb 7.7 L, Hct 23.2 L, MCV 92.1, MCH 30.6, MCHC 33.2, RDW Std Deviation 47.3 H, RDW Coeff of Amos 14.4, Plt Count 409, MPV 10.1, Immature Gran % (Auto) 4.300 H, Neut % (Auto) 77.7 H, Lymph % (Auto) 12.8 L, [place] % (Auto) 3.9, Eos % (Auto) 0.7, Baso % (Auto) 0.6, Absolute Neuts (auto) 16.7 H, Absolute Lymphs (auto) 2.76, Nucleated RBC % 0 05/25/21 06:41: POC Glucose 228 H 05/25/21 11:25: POC Glucose 247 H Micro: Microbiology 05/23/21 18:30 Tissue - Right Foot Gram Stain - Final 05/23/21 18:30 Tissue - Right Foot Wound Culture - Final Meth. resistant Staph. aureus 05/21/21 19:00 Wound Abcess - Right Foot Gram Stain - Final 05/21/21 19:00 Wound Abcess - Right Foot Wound Culture - Final Meth. resistant Staph. aureus 05/21/21 19:00 Wound Abcess - Right Foot Anaerobic Culture - Preliminary Checking for anaerobes, further studies to follow. 05/20/21 19:23 Blood Culture (Wb) - Left Wrist Blood Culture - Final Staphylococcus aureus 05/20/21 19:00 Blood Culture (Wb) - Right Hand Bacteria Detection (PCR) - Final Meth. resistant Staph. aureus 05/20/21 19:00 Blood Culture (Wb) - Right Hand Blood Culture - Final Meth. resistant Staph. aureus 05/21/21 00:05 Wound - Toe Gram Stain - Final 05/21/21 00:05 Wound - Toe Wound Culture - Final Meth. resistant Staph. aureus Enterococcus faecalis Radiography Diagnostic Testing: Radiology Impression Venous Doppler Study 05/23/21 10:31 Interpretation Summary There is no evidence of right lower extremity deep vein thrombosis. Right great saphenous vein appears patent and compressible segmentally. Ordering Physician: Danielle Zavala Referring Physician: Cuong Barros Performed By: Harriet Maya, RDCS, RVT Physical Exam Const alert, oriented x3 and no apparent distress General Appearance: cooperative Exam Limitations: no limitations HEENT normocephalic, head/scalp atraumatic, hearing grossly normal bilaterally and moist oral mucous membranes Head and Scalp: normocephalic Eyes PERRL, EOMs intact bilaterally and conjunctivae normal Neck no lymphadenopathy, supple, no JVD and no carotid bruits Neck Narrative: Trachea midline, no thyroid enlargement Resp normal respiratory effort, no retractions, no use of accessory muscles and clear to auscultation bilaterally Auscultation: Negative for crackles, rales, rhonchi or wheezes Cardio regular rate, regular rhythm, S1 normal heart sound, S2 normal heart sound, no murmurs, no rub, no gallops, no clicks and no JVD Cardio Narrative: Mild tachycardia GI normal to inspection, nondistended, normoactive bowel sounds, soft to palpation, non-tender and non-distended Extremity Extremity Narrative: right foot wrapped in bandage. Skin skin turgor normal, no jaundice, no petechiae and no mottling Skin Narrative: as under foot inspection Neuro oriented x3, CN's II-XII intact bilaterally, moves all extremities and no focal motor deficits Sensorium / Orientation: awake and alert Psych Psych Narrative: flat affect Assessment & Plan Assessment/Plan (1) Abscess of foot: (2) DKA, type 2: (3) Cellulitis of foot, right: (4) COVID-19: PLAN: #DKA due to noncompliance with diabetes meds * DKA resolved. She is on her baseline SC insulin 25 units daily * ISS. Accuchecks ACHS * A1C is 11.4 * patient counseled on compliance with her meds * # Diabetic foot wound with cellulitis of the right lower extremity * has had debridement x 2 by podiatry. * On IV vancomycin and Zosyn. * had debridement by podiatry; wound culture growing MRSA and Enterococcus faecalis. * blood culture growing MRSA * MRI of the foot showed appearance of mild acute on chronic osteomyelitis of the second and third metatarsal bones which are surrounded by fluid and small 2.2 cm fluid collection in the subcutaneous tissue over the dorsum and base of the proximal phalanx of the great toe. Large 6.1 x 1.3 cm lobular fluid collection over the dorsum of the midfoot and moderate to severe e.g. 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 * 2D echo showed normal left ventricular size with EF of 60% and normal mayo tricular systolic function. No evidence of vegetation. * ID consulted; awaiting rec's. * * #MRSA bacteremia: management as above. #Acute on chronic anemia * hemoglobin is down to7.7 today * due to acute blood loss from surgery * monitor, and transfue if Hb <7 * #Anion gap metabolic acidosis:resolved. #COVID-19 infection: Still on room air. On Decadron. Breathing treatments of bronchodilators. #Hypokalemia: potassium is 3 today. Will replace and trend. #Hypocalcemia: resolved #Elevated D-dimer: CTA was negative for PE. #Hypothyroidism: On Synthroid DVT prophylaxis: Lovenox Charges/Coding Visit Charges Inpatient E&M: 98621 Subs Hosp L2
[2021-05-25] MEDS: Potassium Chloride 20mEq/100mL 20 MEQ/100 ML IV.SOLN. 50 MEQ IV BOLUS ×2 (12:14→13:34)
[2021-05-25] MEDS: oxyCODONE 5 MG Tablet PO (16:01)
[2021-05-25] MEDS: Acetaminophen 325 MG Tablet 650 MG PO (16:01)
[2021-05-25 17:10] LABS: Bedside Glucose 248 mg/dL (70-110)
[2021-05-25] MEDS: Morphine 2 MG/ML Syringe IV (20:06)
[2021-05-25] MEDS: DAKIN'S SOL HALF STRENGTH (=0.25%) 1 APPLIC TOPICAL (20:08)
--- NOTE | 2021-05-25 20:10 | NURSING ---
Pt premedicated for drsg change w/PRN Morphine; explained procedure to pt; Pt's drsg to RLE torn down, sterile gauze soaked in Daken's ivana and packed into open wounds x4, covered w/gauze/ABD pads and secured w/kerlix wrap and then ARMANDO wraps from foot to just below knee. ASSEMBLY MACHINE OFFBEARER assisted by elevating RLE for wrapping. Pt shira all well.
[2021-05-25 20:35] LABS: Bedside Glucose 337 mg/dL (70-110)
--- NOTE | 2021-05-25 21:27 | NURSING ---
This RN taking over care of this patient at this time.
--- NOTE | 2021-05-25 22:52 | PCS.PANDOC ---
PANDEMIC DOCUMENTATION INITIATED: Date: 01/06/2021 Time: 190
[2021-05-26] VITALS (9 sets, daily range): BP systolic 109–116; BP diastolic 49–63; PULSE 89–103; RESP 16–18; TEMP 36.7–37.3; O2SAT 93–99
[2021-05-26] MEDS: oxyCODONE 5 MG Tablet PO ×2 (00:34→09:21)
[2021-05-26] MEDS: 0.9% Saline Lock 10 ML Syringe IV (00:35)
[2021-05-26] MEDS: Vancomycin IV 1,000 MG/200 ML BAG 200 MG IV ×2 (00:35→09:15)
[2021-05-26] MEDS: Insulin Lispro 100 UNIT/ML INSULN.PEN SC ×4 (06:38→22:30)
[2021-05-26 06:46] LABS: Bedside Glucose 190 mg/dL (70-110)
[2021-05-26 08:53] LABS: Absolute Lymphocyte Count 2.86 X10^3/uL (0.83-4.51); Absolute Neutrophil Count 16.5 X10^3/uL (2.0-7.7); Basophil# 0.16 X10^3/uL; Basophil% 0.7 % (0-1); Eosinophil# 0.24 X10^3/uL; Eosinophils% 1.1 % (0-5); Hematocrit 24.6 % (37-47); Lymphocyte # 2.86 X10^3/ul (0.83-4.51); Lymphocyte % 13.2 % (19-41); Mean Corp Hgb Conc 32.5 g/dL (32-36); Mean Corpuscular Hgb 30.3 pg (27.0-32.0); Mean Corpuscular Volume 93.2 fL (81-99); Mean Platelet Vol. 9.7 fl (6.2-12.0); Monocyte# 0.87 X10^3/uL; NRBC Flagged by Analyzer 0.1 % (0-5); Neutrophil # 16.45 X10^3/uL (2.7-7.7); Neutrophil % 76.1 % (47-70); Platelet Count 496 K/mm3 (150-450); RBC Distribution Width CV 14.3 % (11.6-14.6); RBC Distribution Width SD 47.3 fl (35.1-43.9); Red Blood Count 2.64 M/mm3 (4.2-5.4); White Blood Count 21.6 K/mm3 (4.4-11.0)
[2021-05-26] MEDS: Baclofen 10 MG Tablet PO ×3 (09:12→17:14)
[2021-05-26] MEDS: Levothyroxine 150 MCG Tablet PO (09:12)
[2021-05-26] MEDS: Enoxaparin 30 MG/0.3 ML Syringe SC ×2 (09:12→22:28)
[2021-05-26] MEDS: Montelukast 10 MG Tablet PO (09:12)
[2021-05-26 09:15] LABS: Anion Gap 6 (5-15); BUN 11 mg/dL (7-18); BUN/Creat Ratio 25.3 RATIO (10-20); Calcium,Total 8.4 mg/dL (8.5-10.1); Chloride 101 mmol/L (98-107); Creatinine, Serum 0.43 mg/dL (0.55-1.02); EST Glomerular Filtration Rate 159 mL/min (>60); Est Glom Filt Rate - Afr Amer 193 mL/min (>60); Estimated Creatinine Clearance 147.37 ml/min; Glucose 283 mg/dL (74-106); Potassium 3.5 mmol/L (3.5-5.1); Sodium Level 136 mmol/L (136-145)
[2021-05-26] MEDS: DAKIN'S SOL HALF STRENGTH (=0.25%) 1 APPLIC TOPICAL ×2 (09:17→22:31)
[2021-05-26] MEDS: Acetaminophen 325 MG Tablet 650 MG PO (09:21)
[2021-05-26 09:22] LABS: Vancomycin, Trough Level 12.4 ug/mL (5.0-15.0)
--- NOTE | 2021-05-26 11:30 | MRI_ITS ---
STUDY: MRI RIGHT ANKLE WITHOUT CONTRAST REASON FOR EXAM: Female, 55 years old. right lower ext infection TECHNIQUE: Standardized fat and water weighted pulse sequences were obtained in all 3 orthogonal planes. COMPARISON: MRI of the right tibia and fibula dated May 26, 2019. MRI of the right foot dated May 21, 2021 FINDINGS: Relative stable appearance of heterogeneous marrow signal related to chronic Charcot arthropathy and secondary degenerative changes. A small ankle joint effusion is present. Small plantar calcaneal spur noted with slight thickening of the central cord of plantar fascia attaches beneath this region. The cortical plate-screw construct of the distal one third fibula is reidentified with resultant metallic artifact and limited visualization of the underlying structures. Diffuse fatty atrophy noted in the visualized muscles. Mild subcutaneous edema is present. No visualized focal fluid collections. A large open wound/concave defect measuring 3 cm is present over the cuboid bone with mild thinning/erosion of the cortex and intramedullary edema beneath this region due to mild osteomyelitis. Normal posterior tibialis tendon. Normal flexor digitorum longus tendon. Normal flexor hallucis longus tendon. Normal peroneus longus and brevis tendons. Normal tibialis anterior tendon. Normal extensor hallucis longus tendon. Normal extensor digitorum longus tendons. Normal Achilles tendon and teno-osseous insertion. Normal plantar fascia. Normal plantar calcaneal tubercles. Normal intrinsic muscles of the rearfoot. Normal tibiotalar articulation. Normal talar dome. Normal subtalar articulations. Normal talonavicular articulation. Normal calcaneocuboid articulation. Normal navicular-cuneiform articulations. IMPRESSION: Mild osteomyelitis at the periphery of the cuboid bone 1. A large open wound/concave defect measuring 3 cm is present over the cuboid bone with mild thinning/erosion of the cortex and intramedullary edema beneath this region due to mild osteomyelitis. Electronically Signed: Erick Boston MD at 20:06 EST , Service support , MRI/Lower Ext Joint Only (Routine)
--- NOTE | 2021-05-26 11:32 | MRI_ITS ---
PROCEDURE: MRI LOWER EXTREMITY RIGHT TIBIA/FIBULA REASON FOR EXAM: Female, 55 years old. right lower leg/foot infection -- tib/fib all the way to just below the knee TECHNIQUE: Standardized fat and water weighted pulse sequences were obtained in all 3 orthogonal planes. COMPARISON: None. FINDINGS: Cortical plate-screw construct of the distal one third fibula reidentified. No marrow edema or occult fractures are seen. Mild to moderate intramuscular edema is present in the muscle fibers of the extensor compartment of the lower leg down to the ankle is present, as well as areas of focal fatty atrophy. Small lobular fluid collections conform to the shape of the muscles of the extensor compartment including the anterior tibialis and extensor hallucis longus muscles from the proximal one third tibial shaft region down to the middle to distal one third regions. The collections maximally measure 2.16 cm in diameter and 2.02 cm respectively. The findings are compatible with infectious myositis with small superficial abscesses. Reactive mild subcutaneous and intramuscular edema is present in the same region and additional fibers as well as the posterior third of the extensor digitorum longus muscle fibers. Mild periosteal reaction is present along the anterior medial cortex of the middle one third tibial shaft region consistent with reactive/infectious periostitis, however no cortical erosion or intramedullary edema or bony destruction or osteolysis is seen to suggest active osteomyelitis. No Madhu''s abscess is seen. Normal fibula, without a periosteal, cortical or cancellous marrow abnormality. No demonstrated osteomyelitis. Normal anterior, lateral, and posterior calf compartments, with normal muscles, crural fascia and intermuscular septa. There is no solid, cystic or lipomatous mass lesion of the subcutis adipose space. IMPRESSION: Infectious myositis and superficial abscesses of the extensor compartment of the lower leg 1. Mild to moderate intramuscular edema is present in the muscle fibers of the extensor compartment of the lower leg down to the ankle is present, as well as areas of focal fatty atrophy. 2. Small lobular fluid collections conform to the shape of the muscles of the extensor compartment including the anterior tibialis and extensor hallucis longus muscles from the proximal one third tibial shaft region down to the middle to distal one third regions. The collections maximally measure 2.16 cm in diameter and 2.02 cm respectively. The findings are compatible with infectious myositis with small superficial abscesses. 3. Reactive mild subcutaneous and intramuscular edema is present in the same region and additional fibers as well as the posterior third of the extensor digitorum longus muscle fibers. 4. Mild periosteal reaction is present along the anterior medial cortex of the middle one third tibial shaft region consistent with reactive/infectious periostitis, however no cortical erosion or intramedullary edema or bony destruction or osteolysis is seen to suggest active osteomyelitis. Electronically Signed: Erick Boston MD at 18:03 EST , Service support , MRI/Lower Ext/No Jt/w/o
[2021-05-26 11:41] LABS: Bedside Glucose 319 mg/dL (70-110)
--- NOTE | 2021-05-26 12:12 | WOUNDNOTE ---
wound photo: right lower leg/foot
--- NOTE | 2021-05-26 12:13 | WOUNDNOTE ---
wound photo: right foot (lateral view)
--- NOTE | 2021-05-26 12:14 | WOUNDNOTE ---
wound photo: right foot (medial view)
--- NOTE | 2021-05-26 12:14 | WOUNDNOTE ---
wound photo: right lower leg
--- NOTE | 2021-05-26 13:08 | PCM.RX.CS ---
Consult Pharmacy has been consulted to manage selected antiobiotic: Vancomycin Type of Consult: Follow-up Prior Doses of Antibiotics Received/Current Regimen: 1000mg iv q8h Labs: Sodium 136 mmol/L (136-145) 05/26/21 08:36 Potassium 3.5 mmol/L (3.5-5.1) 05/26/21 08:36 Chloride 101 mmol/L (98-107) 05/26/21 08:36 Carbon Dioxide 29.0 mmol/L (21.0-32.0) 05/26/21 08:36 Anion Gap 6 (5-15) 05/26/21 08:36 BUN 11 mg/dL (7-18) 05/26/21 08:36 Creatinine 0.43 mg/dL (0.55-1.02) L 05/26/21 08:36 Est GFR (MDRD) Af Amer 193 mL/min (>60) 05/26/21 08:36 Est GFR (MDRD) Non-Af 159 mL/min (>60) 05/26/21 08:36 BUN/Creatinine Ratio 25.3 RATIO (10-20) H 05/26/21 08:36 Glucose 283 mg/dL (74-106) H 05/26/21 08:36 Vancomycin Trough 12.4 ug/mL (5.0-15.0) 05/26/21 08:36 Random Vancomycin 9.0 ug/mL (0.0-15.0) 05/23/21 12:30 Microbiology: Microbiology 05/21/21 19:00 Wound Abcess - Right Foot Gram Stain - Final 05/21/21 19:00 Wound Abcess - Right Foot Wound Culture - Final Meth. resistant Staph. aureus 05/21/21 19:00 Wound Abcess - Right Foot Anaerobic Culture - Final No anaerobic bacteria isolated. 05/23/21 18:30 Tissue - Right Foot Gram Stain - Final 05/23/21 18:30 Tissue - Right Foot Wound Culture - Final Meth. resistant Staph. aureus 05/23/21 18:30 Tissue - Right Foot Anaerobic Culture - Final No anaerobic bacteria isolated. 05/20/21 19:23 Blood Culture (Wb) - Left Wrist Blood Culture - Final Staphylococcus aureus 05/20/21 19:00 Blood Culture (Wb) - Right Hand Bacteria Detection (PCR) - Final Meth. resistant Staph. aureus 05/20/21 19:00 Blood Culture (Wb) - Right Hand Blood Culture - Final Meth. resistant Staph. aureus 05/21/21 00:05 Wound - Toe Gram Stain - Final 05/21/21 00:05 Wound - Toe Wound Culture - Final Meth. resistant Staph. aureus Enterococcus faecalis Weight used for dosin.7 kg Estimated Creatinine Clearance: >100ml/min Goal Trough: 15-20 mcg/mL Pharmacy Plan for Drug Dosing: Trough today 12.4 and was drawn ~8 hrs post dose. Will increase dose to 1250mg iv q8h. Another trough level ordered for .4. before 4th dose of this new regimen. Pharmacy Service will continue to monitor and adjust dosing as required. Follow-Up Labs: Trough Vancomycin - 1.4.22 @1730 before 1800 dose
[2021-05-26 13:25] LABS: Pathologist Review Reviewed
--- NOTE | 2021-05-26 14:12 | CHAPLAIN ---
Type of Pastoral Visit ___ Initial Visit ___ Follow-up Visit ___ On-call Visit ___ General Patient Visit ___ Spiritual Assessment ___ Family Conference ___ Bereavement ___ Rapid Response ___ Code Blue ___ Other (describe below) Pastoral Care Referral From ___ Patient ___ Family ___ Nurse ___ Physician ___ Manager Small Business ___ Turntable Man ___ Other (describe below) Sacrament/Intervention ___ Active listening ___ Anointing ___ Latter-Day ___ Bereavement ___ Communion ___ [place] exploration ___ ___ Life review ___ Prayer ___ Reconciliation ___ Sacrament of Sick ___ Supportive presence ___ Wedding ___ Other (describe below) Pastoral Comments attempt to visit but patient was on phone and wished to continue
[2021-05-26 14:30] LABS: Pathologist Review Reviewed
--- NOTE | 2021-05-26 15:08 | CASEMGMT ---
Addendum entered by Allegra Parekh 05/26/21 16:34: Patient also states that first choice for half-way is [facility], If I am able to get my insurance. Original Note: Social Work Consult: Self Pay Met with patient in room. Introduced self and social worker masters role. Patient agreeable to speak with this social worker masters. This social worker masters problem solving with patient on possible options for insurance. Patient completed RM application prior but not sure that patient will qualify. This social worker masters broached topic of COBRA insurance. Patient reports to have papers on this at home but not sure where they are. This social worker masters encouraging patient to contact prior insurance company or HR at prior employer to see if COBRA can be started still. This social worker masters able to provide patient with copy of old insurance card to contact to see how to start COBRA. This social worker masters did attempt to call for patient but was unable to speak with loan representative as not the patient. Social Work to continue to follow. Alie RHODES, JOSE
--- NOTE | 2021-05-26 17:18 | PN.HOSP_ITS ---
Subjective Subjective Follow-up on right foot abscess/DKA: Patient was seen and examined. Her pain is controlled. She is going for MRI of the foot. Objective Data Objective Data Vital Signs: Vital Signs Temp Pulse Resp BP Pulse Ox 98.1 F 101 H 18 115/49 L 99 05/26/21 09:05 05/26/21 15:00 05/26/21 09:05 05/26/21 09:05 05/26/21 09:05 Oxygen Flow Rate (L/min) 5 Oxygen Delivery Method Room Air Weight: 88.7 kg Body Mass Index (BMI) 30.8 Intake & Output: Intake and Output for Last 24 Hours 05/24/21 05/25/21 05/26/21 23:59 23:59 23:59 Intake Total 1640 / 1640 1486.67 / 1486.67 640 / 640 Balance 1640 / 1640 1486.67 / 1486.67 640 / 640 Lab / Micro Data Result Diagrams: 05/26/21 08:36 05/26/21 08:36 Labs: Laboratory Results - last 24 hr 05/23/21 03:31: Diff Path Review Reviewed 05/24/21 05:26: Diff Path Review Reviewed 05/25/21 20:05: POC Glucose 337 H 05/26/21 06:36: POC Glucose 190 H 05/26/21 08:36: Sodium 136, Potassium 3.5, Chloride 101, Carbon Dioxide 29.0, Anion Gap 6, BUN 11, Creatinine 0.43 L, Estim Creat Clear Calc 147.37, Est GFR ( MDRD) Af Amer 193, Est GFR (MDRD) Non-Af 159, BUN/Creatinine Ratio 25.3 H, Glucose 283 H, Calcium 8.4 L 05/26/21 08:36: WBC 21.6 H, RBC 2.64 L, Hgb 8.0 L, Hct 24.6 L, MCV 93.2, MCH 30.3, MCHC 32.5, RDW Std Deviation 47.3 H, RDW Coeff of Amos 14.3, Plt Count 496 H, MPV 9.7, Immature Gran % (Auto) 4.900 H, Neut % (Auto) 76.1 H, Lymph % (Auto) 13.2 L, [place] % (Auto) 4.0, Eos % (Auto) 1.1, Baso % (Auto) 0.7, Absolute Neuts (auto) 16.5 H, Absolute Lymphs (auto) 2.86, Nucleated RBC % 0.1 05/26/21 08:36: Vancomycin Trough 12.4 05/26/21 11:12: POC Glucose 319 H Micro: Microbiology 05/21/21 19:00 Wound Abcess - Right Foot Gram Stain - Final 05/21/21 19:00 Wound Abcess - Right Foot Wound Culture - Final Meth. resistant Staph. aureus 05/21/21 19:00 Wound Abcess - Right Foot Anaerobic Culture - Final No anaerobic bacteria isolated. 05/23/21 18:30 Tissue - Right Foot Gram Stain - Final 05/23/21 18:30 Tissue - Right Foot Wound Culture - Final Meth. resistant Staph. aureus 05/23/21 18:30 Tissue - Right Foot Anaerobic Culture - Final No anaerobic bacteria isolated. 05/20/21 19:23 Blood Culture (Wb) - Left Wrist Blood Culture - Final Staphylococcus aureus 05/20/21 19:00 Blood Culture (Wb) - Right Hand Bacteria Detection (PCR) - Final Meth. resistant Staph. aureus 05/20/21 19:00 Blood Culture (Wb) - Right Hand Blood Culture - Final Meth. resistant Staph. aureus 05/21/21 00:05 Wound - Toe Gram Stain - Final 05/21/21 00:05 Wound - Toe Wound Culture - Final Meth. resistant Staph. aureus Enterococcus faecalis Physical Exam Narrative Physical exam: General: Alert, Oriented x3, Cooperative, No apparent distress, Well developed HEENT: Atraumatic Oral: Moist Mucosa Neck: Supple Lungs: Clear to auscultation Cardiovascular: HS I+II, regular, no murmurs Abdomen: Bowel Sounds Present, Soft, Non Tender Extremities: Right foot in dressing/Sebastian wrap Assessment & Plan Assessment/Plan (1) Abscess of foot: (2) DKA, type 2: QUALIFIERS: Diabetes mellitus complication detail: without coma Qualified Code(s): E11.10 - Type 2 diabetes mellitus with ketoacidosis without coma (3) Cellulitis of foot, right: (4) COVID-19: PLAN: 1. Acute DKA secondary to noncompliance with medications, resolved Blood sugars are uncontrolled; HbA1c is 11.4 Increase Lantus to 35 units twice daily Continue with insulin sliding scale with Accu-Cheks AC at bedtime 2. Acute diabetic foot wound with cellulitis of the right lower extremity, concerning for possible acute osteomyelitis Status post wound debridement x2 by podiatry Wound cultures growing MRSA and Enterococcus faecalis Previous MRI of the foot showed mild acute on chronic osteomyelitis of the second and third metatarsal bones, surrounded by fluid and small 2 x 2 fluid collection in the subcutaneous tissue about the dorsum and base of the proximal phalanx of the great toe. Large collection above the dorsal of the midfoot Continue on IV vancomycin and Zosyn ID consult Repeat MRI pending 3. MRSA bacteremia, will consult ID Check 2D echo, continue IV vancomycin 4. Acute on chronic anemia, likely secondary to blood loss anemia, hemoglobin today is 8.0 Will transfuse if hemoglobin is less than 7 5. Rest of her chronic medical conditions remained stable 6. DVT prophylaxis with Lovenox subcu Charges/Coding Visit Charges Inpatient E&M: 03774 Subs Hosp L3
[2021-05-26 18:26] LABS: Bedside Glucose 343 mg/dL (70-110)
[2021-05-26] MEDS: Menthol/Lanolin/Calamine/Znox 113 GM Tube 1 APPLIC TOPICAL (22:34)
[2021-05-26 22:40] LABS: Bedside Glucose 246 mg/dL (70-110)
[2021-05-27] VITALS (8 sets, daily range): BP systolic 102–120; BP diastolic 33–67; PULSE 90–100; RESP 16–18; TEMP 36.7–37.3; O2SAT 95–99
[2021-05-27 06:26] LABS: Hematocrit 24.7 % (37-47); Hemoglobin 7.7 g/dL (12.0-15.0); Mean Corp Hgb Conc 31.2 g/dL (32-36); Mean Corpuscular Hgb 29.4 pg (27.0-32.0); Mean Corpuscular Volume 94.3 fL (81-99); Mean Platelet Vol. 9.5 fl (6.2-12.0); POSITIVE COUNT YES; POSITIVE MORPHOLOGY YES; Platelet Count 556 K/mm3 (150-450); RBC Distribution Width CV 14.2 % (11.6-14.6); RBC Distribution Width SD 47.4 fl (35.1-43.9); Red Blood Count 2.62 M/mm3 (4.2-5.4); White Blood Count 18.3 K/mm3 (4.4-11.0)
[2021-05-27 06:33] LABS: Differential Indicated MANUAL DIFF
[2021-05-27] MEDS: Insulin Lispro 100 UNIT/ML INSULN.PEN SC ×4 (06:47→20:06)
[2021-05-27 06:55] LABS: Bedside Glucose 205 mg/dL (70-110)
[2021-05-27 06:56] LABS: Anion Gap 6 (5-15); BUN 9 mg/dL (7-18); Calcium,Total 8.6 mg/dL (8.5-10.1); Chloride 103 mmol/L (98-107); Creatinine, Serum 0.39 mg/dL (0.55-1.02); EST Glomerular Filtration Rate 180 mL/min (>60); Eosinophil 1 % (0-5); Est Glom Filt Rate - Afr Amer 218 mL/min (>60); Estimated Creatinine Clearance 162.48 ml/min; Glucose 213 mg/dL (74-106); Lymphocyte 21 % (19-41); Monocyte 7 % (0-10); Myelocyte 1 % (0-0); Neutrophil-Band 5 % (0-5); Neutrophil-Segmented 63 % (47-70); Nucleated Red Bld Cells,Manual 1 % (0-5); Platelet Estimate MOD INC (ADEQ); Potassium 3.4 mmol/L (3.5-5.1); Promyelocyte 2 % (0-0); Sodium Level 137 mmol/L (136-145); Total Cells Counted 100 (MANUAL DIFF)
[2021-05-27 06:57] LABS: Anisocytosis RARE; Macrocytosis RARE; Neutrophil # 12.41 X10^3/uL (2.7-7.7); Polychromasia RARE
[2021-05-27 06:58] LABS: Absolute Lymphocyte Count 3.83 X10^3/uL (0.83-4.51); Absolute Neutrophil Count 12.4 X10^3/uL (2.0-7.7); Lymphocyte # 3.83 X10^3/ul (0.83-4.51)
[2021-05-27] MEDS: Baclofen 10 MG Tablet PO ×3 (08:55→16:43)
[2021-05-27] MEDS: Enoxaparin 30 MG/0.3 ML Syringe SC ×2 (08:56→20:08)
[2021-05-27] MEDS: Montelukast 10 MG Tablet PO (08:56)
[2021-05-27] MEDS: Menthol/Lanolin/Calamine/Znox 113 GM Tube 1 APPLIC TOPICAL (08:56)
[2021-05-27] MEDS: Levothyroxine 150 MCG Tablet PO (08:56)
[2021-05-27] MEDS: oxyCODONE 5 MG Tablet PO (09:00)
--- NOTE | 2021-05-27 09:45 | CASEMGMT ---
SW went to patient's room to see if she has made any progress with getting Cobra. Patient's room was dark and she was lying in bed. Patient did wake up to SW calling her name. Patient said she has not called anyone. Patient said the Supervisor [employer] yesterday told her she would call. SW let patient know that insurance would not talk with the Supervisor [employer] and that she needs to call. SW reminded patient that the Supervisor [employer] yesterday left a copy of her insurance card and she needs to call member services. ABDOUL told patient she needs to do this or we cannot get her anywhere. ABDOUL told patient SW will stop back before lunch. Elena LOPEZ
--- NOTE | 2021-05-27 10:22 | CON.PCM.ID_ITS ---
Assessment & Plan Assessment/Plan (1) Diabetes mellitus with diabetic polyneuropathy: (2) Abscess of foot: (3) MRSA bacteremia: PLAN: MRSA bacteremia with R lower leg osteo, abscesses. Imaging shows hardware in place. On iv vanc. TTE showed no veg. Will order repeat bcx. Is covid vaccinated x3. Plan will be for 6 weeks iv abx. Repeat MRI yesterday shows residual abscesses, ? need for further I&D. Will follow, thank you HPI Consult Data Date of Consult: 05/27/21 HPI Narrative HPI Narrative: FREEMAN MOCTEZUMA, is a 55 F with DM neuropathy, R ankle hardware, presented 05/20 with one week of progressive R lower leg pain, swelling, redness. No known inciting event. Some associated fever and chills. Pain was severe, stabbing. No drainage at home. Has had covid shot x3. Came to ED, found to have DKA, admitted on vanc/zosyn, imaging done, seen by podiatry, taken to OR 05/[address] Alexandre for I&D. Feeling ok, leg sore, no n/v/d. Full ROS performed and neg except as noted above. [facility] Medical History Allergies History of MRSA infection Hypothyroidism Narcolepsy Sleep disorder Type 2 diabetes mellitus with diabetic polyneuropathy Home Medications Levocetirizine Dihydrochloride [Xyzal] 5 mg PO DAILY 09/25/16 [History Last Taken Unknown] armodafinil 150 mg PO BID 09/25/16 [History Last Taken Unknown] levothyroxine 150 mcg PO DAILY 09/25/16 [History Last Taken Unknown] liothyronine 25 mg PO DAILY 09/25/16 [History Last Taken Unknown] montelukast [Singulair] 10 mg PO DAILY 09/25/16 [History Last Taken Unknown] baclofen 10 mg PO TID PRN 01/01/21 [History Last Taken Unknown] fluticasone propionate [Flonase] 1 spray INTRANASAL BID PRN 01/01/21 [History Last Taken Unknown] ibuprofen [Advil] 800 mg PO BID PRN 05/21/21 [History Last Taken Unknown] Allergy/AdvReac Type Severity Reaction Status Date / Time clindamycin Allergy Hives Verified 05/20/21 17:09 pregabalin [From Lyrica] Allergy Swelling Verified 05/20/21 17:09 bee venom protein (honey bee) AdvReac Anaphylaxis Verified 05/20/21 17:09 Family History (Updated 05/20/21 @ 22:[address] Siobhan Huang, DO) Other Diabetes Heart disease Hypertension Surgical History (Updated 05/21/21 @ 09:51 by Deborah Avitia) History of ankle surgery History of cholecystectomy Social History (Updated 05/20/21 @ 22:[address] Siobhan Huang, DO) Smoking Status: Former smoker alcohol intake: current alcohol intake frequency: holidays/special occasions only substance use type: does not use Physical Exam Const alert, oriented x3 and no apparent distress General Appearance: cooperative Exam Limitations: no limitations HEENT normocephalic and head/scalp atraumatic Eyes PERRL and EOMs intact bilaterally Neck supple and No nodes Resp normal air movement and clear to auscultation bilaterally Cardio regular rate and regular rhythm GI normal to inspection, nondistended, normoactive bowel sounds Extremity no clubbing, cyanosis or edema Skin Skin Narrative: reviewed photos Neuro CN's II-XII intact bilaterally Lab / Micro Data Result Diagrams: 05/27/21 06:00 05/27/21 06:00 Labs: Laboratory Results - last 24 hr 05/23/21 03:31: Diff Path Review Reviewed 05/24/21 05:26: Diff Path Review Reviewed 05/26/21 11:12: POC Glucose 319 H 05/26/21 17:10: POC Glucose 343 H 05/26/21 22:27: POC Glucose 246 H 05/27/21 06:00: Sodium 137, Potassium 3.4 L, Chloride 103, Carbon Dioxide 28.0, Anion Gap 6, BUN 9, Creatinine 0.39 L, Estim Creat Clear Calc 162.48, Est GFR (MDRD) Af Amer 218, Est GFR (MDRD) Non-Af 180, BUN/Creatinine Ratio 23.0 H, Glucose 213 H, Calcium 8.6 05/27/21 06:00: WBC 18.3 H, RBC 2.62 L, Hgb 7.7 L, Hct 24.7 L, MCV 94.3, MCH 29.4, MCHC 31.2 L, RDW Std Deviation 47.4 H, RDW Coeff of Amos 14.2, Plt Count 556 H, MPV 9.5, Neut % (Auto) Not Reportable, Absolute Neuts (auto) 12.4 H, Absolute Lymphs (auto) 3.83, Total Counted 100, Neutrophils % (Manual) 63, Band Neutrophils % 5, Lymphocytes % (Manual) 21, Monocytes % (Manual) 7, Eosinophils % (Manual) 1, Myelocytes % 1 H, Promyelocytes % 2 H, Nucleated RBCs/100 WBC 1, Diff Path Review May foll, Platelet Estimate MOD INC, Polychromasia RARE, Anisocytosis RARE, Macrocytosis RARE 05/27/21 06:46: POC Glucose 205 H Micro: Microbiology 05/21/21 19:00 Wound Abcess - Right Foot Gram Stain - Final 05/21/21 19:00 Wound Abcess - Right Foot Wound Culture - Final Meth. resistant Staph. aureus 05/21/21 19:00 Wound Abcess - Right Foot Anaerobic Culture - Final No anaerobic bacteria isolated. 05/23/21 18:30 Tissue - Right Foot Gram Stain - Final 05/23/21 18:30 Tissue - Right Foot Wound Culture - Final Meth. resistant Staph. aureus 05/23/21 18:30 Tissue - Right Foot Anaerobic Culture - Final No anaerobic bacteria isolated. Radiology Impression Lower Extremity MRI 05/26/21 11:30 Lower Extremity MRI 05/26/21 11:32
--- NOTE | 2021-05-27 10:59 | NURSING ---
report called to dipti castellon ms2
--- NOTE | 2021-05-27 11:00 | CASEMGMT ---
ABDOUL checked in with patient to see if she contacted insurance. Patient said she called insurance and they told her to contact her employer. Patient's daughter spoke with Dalia at patient's previous employer. Dalia is working on getting details and is supposed to call patient's daughter back regarding next steps. Elena Soriano PARTS CLASSIFIER JOHN
--- NOTE | 2021-05-27 11:29 | WOUNDNOTE ---
Pt to room from PCU. pt awake and alert. pt denies much discomfort in the foot at this time. right leg elevated up on pillows.
--- NOTE | 2021-05-27 11:39 | PN.HOSP_ITS ---
Subjective Subjective Follow-up on right foot abscess/DKA: Patient was seen and examined. No acute events overnight. Patient denied any acute complaints. Objective Data Objective Data Vital Signs: Vital Signs Temp Pulse Resp BP Pulse Ox 98.2 F 100 18 106/52 L 99 05/27/21 11:28 05/27/21 11:28 05/27/21 11:28 05/27/21 11:28 05/27/21 11:28 Oxygen Flow Rate (L/min) 5 Oxygen Delivery Method Room Air Weight: 87.5 kg Body Mass Index (BMI) 30.8 Intake & Output: Intake and Output for Last 24 Hours 05/25/21 05/26/21 05/27/21 23:59 23:59 23:59 Intake Total 1486.67 / 1486.67 1135 / 1135 550 / 550 Balance 1486.67 / 1486.67 1135 / 1135 550 / 550 Lab / Micro Data Result Diagrams: 05/27/21 06:00 05/27/21 06:00 Labs: Laboratory Results - last 24 hr 05/23/21 03:31: Diff Path Review Reviewed 05/24/21 05:26: Diff Path Review Reviewed 05/26/21 11:12: POC Glucose 319 H 05/26/21 17:10: POC Glucose 343 H 05/26/21 22:27: POC Glucose 246 H 05/27/21 06:00: Sodium 137, Potassium 3.4 L, Chloride 103, Carbon Dioxide 28.0, Anion Gap 6, BUN 9, Creatinine 0.39 L, Estim Creat Clear Calc 162.48, Est GFR (MDRD) Af Amer 218, Est GFR (MDRD) Non-Af 180, BUN/Creatinine Ratio 23.0 H, Glucose 213 H, Calcium 8.6 05/27/21 06:00: WBC 18.3 H, RBC 2.62 L, Hgb 7.7 L, Hct 24.7 L, MCV 94.3, MCH 29.4, MCHC 31.2 L, RDW Std Deviation 47.4 H, RDW Coeff of Amos 14.2, Plt Count 556 H, MPV 9.5, Neut % (Auto) Not Reportable, Absolute Neuts (auto) 12.4 H, Ab solute Lymphs (auto) 3.83, Total Counted 100, Neutrophils % (Manual) 63, Band Neutrophils % 5, Lymphocytes % (Manual) 21, Monocytes % (Manual) 7, Eosinophils % (Manual) 1, Myelocytes % 1 H, Promyelocytes % 2 H, Nucleated RBCs/100 WBC 1, Diff Path Review May foll, Platelet Estimate MOD INC, Polychromasia RARE, Anisocytosis RARE, Macrocytosis RARE 05/27/21 06:46: POC Glucose 205 H Micro: Microbiology 05/21/21 19:00 Wound Abcess - Right Foot Gram Stain - Final 05/21/21 19:00 Wound Abcess - Right Foot Wound Culture - Final Meth. resistant Staph. aureus 05/21/21 19:00 Wound Abcess - Right Foot Anaerobic Culture - Final No anaerobic bacteria isolated. 05/23/21 18:30 Tissue - Right Foot Gram Stain - Final 05/23/21 18:30 Tissue - Right Foot Wound Culture - Final Meth. resistant Staph. aureus 05/23/21 18:30 Tissue - Right Foot Anaerobic Culture - Final No anaerobic bacteria isolated. 05/20/21 19:23 Blood Culture (Wb) - Left Wrist Blood Culture - Final Staphylococcus aureus 05/20/21 19:00 Blood Culture (Wb) - Right Hand Bacteria Detection (PCR) - Final Meth. resistant Staph. aureus 05/20/21 19:00 Blood Culture (Wb) - Right Hand Blood Culture - Final Meth. resistant Staph. aureus 05/21/21 00:05 Wound - Toe Gram Stain - Final 05/21/21 00:05 Wound - Toe Wound Culture - Final Meth. resistant Staph. aureus Enterococcus faecalis Radiography Diagnostic Testing: Radiology Impression Lower Extremity MRI 05/26/21 11:30 Lower Extremity MRI 05/26/21 11:32 Physical Exam Narrative Physical exam: General: Alert, Oriented x3, Cooperative, No apparent distress, Well developed HEENT: Atraumatic Oral: Moist Mucosa Neck: Supple Lungs: Clear to auscultation Cardiovascular: HS I+II, regular, no murmurs Abdomen: Bowel Sounds Present, Soft, Non Tender Extremities: Right foot in dressing/Sebastian wrap Assessment & Plan Assessment/Plan (1) Abscess of foot: (2) DKA, type 2: QUALIFIERS: Diabetes mellitus complication detail: without coma Qualified Code(s): E11.10 - Type 2 diabetes mellitus with ketoacidosis without coma (3) Cellulitis of foot, right: (4) COVID-19: PLAN: 1. Acute DKA secondary to noncompliance with medications, resolved Blood sugars remains uncontrolled; HbA1c is 11.4 Increase Lantus to 40 units twice daily Continue with insulin sliding scale with Accu-Cheks AC at bedtime 2. Acute diabetic foot wound with cellulitis of the right lower extremity, concerning for possible acute osteomyelitis Status post wound debridement x2 by podiatry Wound cultures growing MRSA and Enterococcus faecalis Previous MRI of the foot showed mild acute on chronic osteomyelitis of the second and third metatarsal bones, surrounded by fluid and small 2 x 2 fluid collection in the subcutaneous tissue about the dorsum and base of the proximal phalanx of the great toe. Large collection above the dorsal of the midfoot Repeat MRI of the leg and foot on 05/26/21 shows infectious myositis and superficial abscesses of the extensor compartment of the lower leg, osteomyelitis of the right cuboid bone. ID following. 3. MRSA bacteremia, repeat blood cultures pending, continue on IV vancomycin 4. Acute on chronic anemia, likely secondary to blood loss anemia, Hemoglobin today is 7.7 Will transfuse if hemoglobin is less than 7 5. Rest of her chronic medical conditions remained stable 6. DVT prophylaxis with Lovenox subcu Charges/Coding Visit Charges Inpatient E&M: 37399 Subs Hosp L3
[2021-05-27 11:40] LABS: Bedside Glucose 332 mg/dL (70-110)
[2021-05-27] MEDS: Bupivacaine Mpf 0.5% 30 ML VIAL (11:56)
[2021-05-27] MEDS: DAKIN'S SOL HALF STRENGTH (=0.25%) 1 APPLIC TOPICAL ×2 (11:57→20:08)
[2021-05-27] MEDS: Potassium Chloride Oral Tablet 20 MEQ 40 MEQ PO (12:21)
--- NOTE | 2021-05-27 13:33 | CASEMGMT ---
SOCIAL WORK Call to patient's daughter regarding COBRA insurance. Daughter states awaiting information via email and will call SW back once received. Daughter reports from patient's new employer received Leave of Absence form. Encouraged daughter to have patient's PCP complete form as they will be following patient. Daughter verbalized understanding. SW to remain available. Irineo Farias, CONFERENCE CENTER MANAGER, RN PERITONEAL DIALYSIS
[2021-05-27 14:23] LABS: Pathologist Review Reviewed
--- NOTE | 2021-05-27 14:49 | CHAPLAIN ---
Type of Pastoral Visit _x__ Initial Visit ___ Follow-up Visit ___ On-call Visit ___ General Patient Visit ___ Spiritual Assessment ___ Family Conference ___ Bereavement ___ Rapid Response ___ Code Blue ___ Other (describe below) Pastoral Care Referral From _x__ Patient ___ Family ___ Nurse ___ Physician ___ Recruiting Operations Consultant ___ Roller Skate Repairer ___ Other (describe below) Sacrament/Intervention ___ Active listening ___ Anointing ___ Latter Day ___ Bereavement ___ Communion ___ [place] exploration ___ ___ Life review ___ Prayer ___ Reconciliation ___ Sacrament of Sick _x__ Supportive presence ___ Wedding ___ Other (describe below) Pastoral Comments offered support to patient; pt states that she is not restorationism; offer of emotional support and this wedding designer asked questions to define how pt is coping with her illness; pt could only say that I just get through it; pt had low affect and did not engage in conversation; offer of future support as desired by patient was given
[2021-05-27 16:56] LABS: Bedside Glucose 293 mg/dL (70-110)
[2021-05-27 18:02] LABS: Vancomycin, Trough Level 19.1 ug/mL (5.0-15.0)
--- NOTE | 2021-05-27 19:36 | PCM.RX.CS ---
Consult Pharmacy has been consulted to manage selected antiobiotic: Vancomycin Type of Consult: Follow-up Suspected Infection: Osteomyelitis, Bacteremia Prior Doses of Antibiotics Received/Current Regimen: current dose is 1250mg IV q8h Labs: Sodium 137 mmol/L (136-145) 05/27/21 06:00 Potassium 3.4 mmol/L (3.5-5.1) L 05/27/21 06:00 Chloride 103 mmol/L (98-107) 05/27/21 06:00 Carbon Dioxide 28.0 mmol/L (21.0-32.0) 05/27/21 06:00 Anion Gap 6 (5-15) 05/27/21 06:00 BUN 9 mg/dL (7-18) 05/27/21 06:00 Creatinine 0.39 mg/dL (0.55-1.02) L 05/27/21 06:00 Est GFR (MDRD) Af Amer 218 mL/min (>60) 05/27/21 06:00 Est GFR (MDRD) Non-Af 180 mL/min (>60) 05/27/21 06:00 BUN/Creatinine Ratio 23.0 RATIO (10-20) H 05/27/21 06:00 Glucose 213 mg/dL (74-106) H 05/27/21 06:00 Vancomycin Trough 19.1 ug/mL (5.0-15.0) H 05/27/21 17:14 Random Vancomycin 9.0 ug/mL (0.0-15.0) 05/23/21 12:30 Microbiology: Microbiology 05/21/21 19:00 Wound Abcess - Right Foot Gram Stain - Final 05/21/21 19:00 Wound Abcess - Right Foot Wound Culture - Final Meth. resistant Staph. aureus 05/21/21 19:00 Wound Abcess - Right Foot Anaerobic Culture - Final No anaerobic bacteria isolated. 05/23/21 18:30 Tissue - Right Foot Gram Stain - Final 05/23/21 18:30 Tissue - Right Foot Wound Culture - Final Meth. resistant Staph. aureus 05/23/21 18:30 Tissue - Right Foot Anaerobic Culture - Final No anaerobic bacteria isolated. 05/20/21 19:23 Blood Culture (Wb) - Left Wrist Blood Culture - Final Staphylococcus aureus 05/20/21 19:00 Blood Culture (Wb) - Right Hand Bacteria Detection (PCR) - Final Meth. resistant Staph. aureus 05/20/21 19:00 Blood Culture (Wb) - Right Hand Blood Culture - Final Meth. resistant Staph. aureus 05/21/21 00:05 Wound - Toe Gram Stain - Final 05/21/21 00:05 Wound - Toe Wound Culture - Final Meth. resistant Staph. aureus Enterococcus faecalis Weight used for dosin.5 kg Estimated Creatinine Clearance: >100ml/min Goal Trough: 15-20 mcg/mL Pharmacy Plan for Drug Dosing: The vanc trough drawn at 17:14 tonight (approx 8 hours after the previous dose) came back as 19.1. This is within goal range so will keep same dosing for now. Since the trough did jump all the way to 19.1 from 12.4 with the last dose increase, will recheck a trough again in 24 hours to make sure it does not jump above goal range. If it does, may need to convert to q12h dosing. Pharmacy Service will continue to monitor and adjust dosing as required. Follow-Up Labs: Trough Vancomycin Labs to be done on [date and time ordered]: 05/28/21 17:30
[2021-05-27 20:21] LABS: Bedside Glucose 328 mg/dL (70-110)
[2021-05-28] VITALS (25 sets, daily range): BP systolic 84–116; BP diastolic 39–72; PULSE 85–105; RESP 14–20; TEMP 36.2–37.6; O2SAT 92–100; BMI 29.2
[2021-05-28 06:51] LABS: Hematocrit 24.9 % (37-47); Mean Corp Hgb Conc 32.1 g/dL (32-36); Mean Corpuscular Hgb 30.7 pg (27.0-32.0); Mean Corpuscular Volume 95.4 fL (81-99); Mean Platelet Vol. 9.1 fl (6.2-12.0); POSITIVE COUNT YES; POSITIVE MORPHOLOGY YES; Platelet Count 605 K/mm3 (150-450); RBC Distribution Width CV 14.5 % (11.6-14.6); Red Blood Count 2.61 M/mm3 (4.2-5.4); White Blood Count 19.1 K/mm3 (4.4-11.0)
[2021-05-28 06:53] LABS: Differential Indicated MANUAL DIFF
[2021-05-28 07:07] LABS: Anion Gap 5 (5-15); BUN 8 mg/dL (7-18); BUN/Creat Ratio 19.6 RATIO (10-20); Chloride 105 mmol/L (98-107); Creatinine, Serum 0.41 mg/dL (0.55-1.02); EST Glomerular Filtration Rate 171 mL/min (>60); Est Glom Filt Rate - Afr Amer 207 mL/min (>60); Estimated Creatinine Clearance 154.55 ml/min; Glucose 161 mg/dL (74-106); Potassium 3.6 mmol/L (3.5-5.1); Sodium Level 140 mmol/L (136-145)
[2021-05-28 07:11] LABS: Neutrophil-Band 2 % (0-5); Neutrophil-Segmented 77 % (47-70); Total Cells Counted 100 (MANUAL DIFF)
[2021-05-28 07:12] LABS: Basophil 1 % (0-1); Lymphocyte 14 % (19-41); Metamyelocyte 1 % (0-1); Monocyte 3 % (0-10); Myelocyte 1 % (0-0); Platelet Estimate MOD INC (ADEQ); Promyelocyte 1 % (0-0)
[2021-05-28 07:13] LABS: Absolute Neutrophil Count 15.1 X10^3/uL (2.0-7.7); Lymphocyte # 2.67 X10^3/ul (0.83-4.51); Neutrophil # 15.08 X10^3/uL (2.7-7.7); Polychromasia RARE
[2021-05-28 07:14] LABS: Absolute Lymphocyte Count 2.67 X10^3/uL (0.83-4.51)
[2021-05-28] MEDS: DAKIN'S SOL HALF STRENGTH (=0.25%) 1 APPLIC TOPICAL (07:22)
--- NOTE | 2021-05-28 07:36 | PCM.PROGNOTE ---
Subjective Subjective This patient was seen this morning for follow up on right foot, ankle, and leg complex infection. She is resting in bed. She has pain with dressing change. She was seen this morning with wound nurse, Ingrid. Objective Data Objective Data Vital Signs: Vital Signs Temp Pulse Resp BP Pulse Ox 98.3 F 88 14 116/62 94 05/28/21 04:26 05/28/21 04:26 05/28/21 04:26 05/28/21 04:26 05/28/21 04:26 Oxygen Flow Rate (L/min) 5 Oxygen Delivery Method Room Air Weight: 87.2 kg Body Mass Index (BMI) 30.8 Intake & Output: Intake and Output for Last 24 Hours 05/26/21 05/27/21 05/28/21 23:59 23:59 23:59 Intake Total 1135 / 1135 825 / 825 Balance 1135 / 1135 825 / 825 Lab / Micro Data Result Diagrams: 05/28/21 05:35 05/28/21 05:35 Labs: Laboratory Results - last 24 hr 05/27/21 06:00: Diff Path Review Reviewed 05/27/21 11:34: POC Glucose 332 H 05/27/21 16:41: POC Glucose 293 H 05/27/21 17:14: Vancomycin Trough 19.1 H 05/27/21 20:06: POC Glucose 328 H 05/28/21 05:35: WBC 19.1 H, RBC 2.61 L, Hgb 8.0 L, Hct 24.9 L, MCV 95.4, MCH 30.7, MCHC 32.1, RDW Std Deviation 47.0 H, RDW Coeff of Amos 14.5, Plt Count 605 H, MPV 9.1, Neut % (Auto) Not Reportable, Absolute Neuts (auto) 15.1 H, Absolute Lymphs (auto) 2.67, Total Counted 100, Neutrophils % (Manual) 77 H, Band Neutrophils % 2, Lymphocytes % (Manual) 14 L, Monocytes % (Manual) 3, Basophils % (Manual) 1, Metamyelocytes % 1, Myelocytes % 1 H, Promyelocytes % 1 H, Diff Path Review May foll, Platelet Estimate MOD INC, Polychromasia RARE 05/28/21 05:35: Sodium 140, Potassium 3.6, Chloride 105, Carbon Dioxide 30.0, Anion Gap 5, BUN 8, Creatinine 0.41 L, Estim Creat Clear Calc 154.55, Est GFR (MDRD) Af Amer 207, Est GFR (MDRD) Non-Af 171, BUN/Creatinine Ratio 19.6, Glucose 161 H, Calcium 9.0 Micro: Microbiology 05/21/21 19:00 Wound Abcess - Right Foot Gram Stain - Final 05/21/21 19:00 Wound Abcess - Right Foot Wound Culture - Final Meth. resistant Staph. aureus 05/21/21 19:00 Wound Abcess - Right Foot Anaerobic Culture - Final No anaerobic bacteria isolated. 05/23/21 18:30 Tissue - Right Foot Gram Stain - Final 05/23/21 18:30 Tissue - Right Foot Wound Culture - Final Meth. resistant Staph. aureus 05/23/21 18:30 Tissue - Right Foot Anaerobic Culture - Final No anaerobic bacteria isolated. 05/20/21 19:23 Blood Culture (Wb) - Left Wrist Blood Culture - Final Staphylococcus aureus 05/20/21 19:00 Blood Culture (Wb) - Right Hand Bacteria Detection (PCR) - Final Meth. resistant Staph. aureus 05/20/21 19:00 Blood Culture (Wb) - Right Hand Blood Culture - Final Meth. resistant Staph. aureus 05/21/21 00:05 Wound - Toe Gram Stain - Final 05/21/21 00:05 Wound - Toe Wound Culture - Final Meth. resistant Staph. aureus Enterococcus faecalis Physical Exam Const alert and no apparent distress General Appearance: cooperative HEENT normocephalic Extremity normal capillary refill Extremity Narrative: no cyanosis, no calf tenderness palpable pulses muscle wasting noted. no tenderness. General Extremity: edema Skin Skin Narrative: Her skin is atrophic. Right lower extremity has multiple incision and drainage with debridement sites from surgical intervention on . There is about 4 cc of purulent drainage expressed from the proximalmost aspect of the anterior extensor compartment. There is also continued purulence on expression from the dorsal medial foot widespread debridement site and proximal lateral foot debridement site as well. Is noted there is exposed bone and tendon at all of the sites. There is no additional palpable bogginess or fluctuance of the leg ankle or foot. There is both healthy and devitalized necrotic tissue noted at all sites also. The dorsal central incision appears healthy without any purulence. There is no odor. The erythema to the anterior right leg has also resolved from the premarked area Assessment & Plan Assessment/Plan (1) 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: (2) Cellulitis of foot, right: (3) Sepsis: (4) Charcot's joint of right foot: (5) Abscess of foot: (6) Diabetes mellitus with diabetic polyneuropathy: (7) Acute osteomyelitis of left foot: PLAN: Re-evaluation performed. s/p wide I+D debridement right foot and ankle from 05-23-21. White blood cell count is still elevated at about 19. There is no active bleeding from right lower extremity at this time. Blood cultures reviewed and noted to be positive for MRSA. Repeat cultures pending. Right foot wound culture has also been obtained and reviewed - noted MRSA and entercoccus. She is on IV antibiotics Vancomycin which she will continue. MRI w/out contrast ordered of ankle and leg with tibiotalar joint effusion and likely infectious myositis of the anterior extensor compartment. Small abscesses to this compartment are also possible. Infectious disease specialist intervention is reviewed and appreciated. Dressing changes: today applied clean, Dakin wet to dry gauze, kerlix, abd pads and verito dressing - change BID via dakin's wet to dry. No weightbearing right foot, keep foot elevated. Overall she has lack of adequate improvement with antibiotics and local wound care. I do recommend operating room debridement and additional drainage of the leg, ankle and foot. I will confirm operating room availability for today or tomorrow. This is a limb salvage case and is medically necessary to avoid below-knee amputation versus systemic illness or even . This is not an elective surgical intervention recommendation. Preoperative indications, planned procedure, benefits, risk, anticipated healing time and management were reviewed. The patient understands and elects proceed with surgery at this time. No guarantees were made. The patient understands risk and complications include but are not limited to following: pain, swelling, scarring, need for further surgery, tendon contracture, transfer lesion, arthritis, need for further surgery, delayed or nonhealing, infection, blood clot, allergic reaction, loss of limb, function, or life. The informed surgical limb and consent will need to be signed. I answered all the patient's questions. I will confirm operating room surgical time once I hear back from charge nurse. D/C planning - Recommend nursing placement upon discharge for wound care, antibiotics, also will need to be nonweightbearing right foot. Podiatry will continue to follow. I answered all the patient's questions. Please do not hesitate to call if you have any questions. Irina Gonzalez DPM, [facility] [phone]
[2021-05-28 07:40] LABS: Bedside Glucose 160 mg/dL (70-110)
[2021-05-28 09:03] LABS: Iron 34 ug/dL (50-170); Iron Binding Capacity,Total 246 ug/dL (250-450); PERCENT IRON SATURATION 13.8 % (15.0-55.0)
[2021-05-28] MEDS: 0.9% Saline Lock 10 ML Syringe IV (09:46)
[2021-05-28] MEDS: Morphine 2 MG/ML Syringe IV ×2 (09:46→14:37)
--- NOTE | 2021-05-28 09:53 | NURSING ---
AM ORAL MEDS HELD DUE TO PT NPO FOR OR TODAY
[2021-05-28 11:36] LABS: Bedside Glucose 135 mg/dL (70-110)
[2021-05-28 13:23] LABS: Pathologist Review Reviewed
--- NOTE | 2021-05-28 13:30 | PCM.PN.HOSP ---
Documented by User: SILVINA Mills 05/28/21 13:35 Subjective Subjective Patient seen and examined. Patient lying in bed no distress noted. Patient states that she is still feeling fairly fatigued and worn out. Objective Data Objective Data Vital Signs: Vital Signs Temp Pulse Resp BP Pulse Ox 98.9 F 90 18 109/60 96 05/28/21 13:20 05/28/21 13:20 05/28/21 13:20 05/28/21 13:20 05/28/21 13:20 Oxygen Flow Rate (L/min) 5 Oxygen Delivery Method Room Air Weight: 192 lb 3.889 oz Body Mass Index (BMI) 30.8 Intake & Output: Intake and Output for Last 24 Hours 05/26/21 05/27/21 05/28/21 23:59 23:59 23:59 Intake Total 1135 / 1135 825 / 825 550 / 550 Balance 1135 / 1135 825 / 825 550 / 550 Lab / Micro Data Result Diagrams: 05/28/21 05:35 05/28/21 05:35 Labs: Laboratory Results - last 24 hr 05/27/21 06:00: Diff Path Review Reviewed 05/27/21 16:41: POC Glucose 293 H 05/27/21 17:14: Vancomycin Trough 19.1 H 05/27/21 20:06: POC Glucose 328 H 05/28/21 05:35: WBC 19.1 H, RBC 2.61 L, Hgb 8.0 L, Hct 24.9 L, MCV 95.4, MCH 30.7, MCHC 32.1, RDW Std Deviation 47.0 H, RDW Coeff of Amos 14.5, Plt Count 605 H, MPV 9.1, Neut % (Auto) Not Reportable, Absolute Neuts (auto) 15.1 H, Absolute Lymphs (auto) 2.67, Total Counted 100, Neutrophils % (Manual) 77 H, Band Neutrophils % 2, Lymphocytes % (Manual) 14 L, Monocytes % (Manual) 3, Basophils % (Manual) 1, Metamyelocytes % 1, Myelocytes % 1 H, Promyelocytes % 1 H, Diff Path Review Reviewed, Platelet Estimate MOD INC, Polychromasia RARE 05/28/21 05:35: Sodium 140, Potassium 3.6, Chloride 105, Carbon Dioxide 30.0, Anion Gap 5, BUN 8, Creatinine 0.41 L, Estim Creat Clear Calc 154.55, Est GFR (MDRD) Af Amer 207, Est GFR (MDRD) Non-Af 171, BUN/Creatinine Ratio 19.6, Glucose 161 H, Calcium 9.0 05/28/21 05:35: Iron 34 L, TIBC 246 L, Iron Saturation 13.8 L 05/28/21 07:31: POC Glucose 160 H 05/28/21 08:47: Blood Type A POSITIVE, Antibody Screen NEGATIVE 05/28/21 08:47: Crossmatch See Detail 05/28/21 11:33: POC Glucose 135 H Micro: Microbiology 05/21/21 19:00 Wound Abcess - Right Foot Gram Stain - Final 05/21/21 19:00 Wound Abcess - Right Foot Wound Culture - Final Meth. resistant Staph. aureus 05/21/21 19:00 Wound Abcess - Right Foot Anaerobic Culture - Final No anaerobic bacteria isolated. 05/23/21 18:30 Tissue - Right Foot Gram Stain - Final 05/23/21 18:30 Tissue - Right Foot Wound Culture - Final Meth. resistant Staph. aureus 05/23/21 18:30 Tissue - Right Foot Anaerobic Culture - Final No anaerobic bacteria isolated. 05/20/21 19:23 Blood Culture (Wb) - Left Wrist Blood Culture - Final Staphylococcus aureus 05/20/21 19:00 Blood Culture (Wb) - Right Hand Bacteria Detection (PCR) - Final Meth. resistant Staph. aureus 05/20/21 19:00 Blood Culture (Wb) - Right Hand Blood Culture - Final Meth. resistant Staph. aureus 05/21/21 00:05 Wound - Toe Gram Stain - Final 05/21/21 00:05 Wound - Toe Wound Culture - Final Meth. resistant Staph. aureus Enterococcus faecalis Physical Exam Const alert, oriented x3 and no apparent distress HEENT head/scalp atraumatic Head and Scalp: normocephalic Eyes conjunctivae normal and no scleral icterus Neck supple General: trachea midline Resp normal respiratory effort and clear to auscultation bilaterally Cardio regular rate, regular rhythm, S1 normal heart sound and S2 normal heart sound GI normal to inspection, nondistended, normoactive bowel sounds, soft to palpation and non-tender Extremity normal to inspection, full ROM and no clubbing, cyanosis or edema Peripheral Pulses: Yes pulses 2+ throughout Skin no rashes or lesions noted Skin Narrative: Wound to right foot, dressing dry and intact. Neuro oriented x3, moves all extremities, no focal motor deficits and no sensory deficits noted Sensorium / Orientation: awake and alert Psych affect normal Assessment & Plan Assessment/Plan (1) Charcot's joint of right foot: (2) Abscess of foot: (3) Diabetes mellitus with diabetic polyneuropathy: QUALIFIERS: Diabetes mellitus termite exterminator insulin use: without termite exterminator use Diabetes mellitus type: type 2 Qualified Code(s): E11.42 - Type 2 diabetes mellitus with diabetic polyneuropathy (4) MRSA bacteremia: PLAN: 1. Acute osteomyelitis of right foot -MRI positive for osteomyelitis, patient to go for surgery with Dr. Gonzalez later today -Continue antibiotics per infectious disease -Wound nurse following 2. Diabetes mellitus type 2 -Continue scheduled Lantus as well as ACHS blood sugars with sliding scale insulin -Patient will need to be discharged home on an antidiabetic medication regimen DVT prophylaxis-subcu Lovenox This patient was seen by Nelida Beard NP-C under the supervision of Dr. Bowman. Documented by User: Dr. Beatrice Bowman MD 05/28/21 14:38 Objective Data Lab / Micro Data Result Diagrams: 05/28/21 05:35 05/28/21 05:35 Charges/Coding Addendum Addendum: This patient was seen in conjunction with Rahat Beard NP. I have independently interviewed and examined the patient and reviewed pertinent historical, laboratory, and other data. I have reviewed her note and concur with her documentation Patient was seen and examined. No acute events overnight. She denied any fever or chills. Discussed her care in diet with podiatry, patient is going for surgery. Noted her hemoglobin was low but relatively unchanged from previous. Blood loss anticipated during surgery. Discussed about transfusing 1 unit of packed RBC prior to surgery. Vitals: Temp Pulse Resp BP Pulse Ox 98.9 F 90 18 109/60 96 Physical exam: General: Alert, Oriented x3, Cooperative, No apparent distress, Well developed HEENT: Atraumatic Oral: Moist Mucosa Neck: Supple Lungs: Clear to auscultation Cardiovascular: HS I+II, regular, no murmurs Abdomen: Bowel Sounds Present, Soft, Non Tender Extremities: Right foot in dressing/Sebastian wrap Labs: WBC count is 19.1, hemoglobin 8.0, platelet count 605 Sodium 140, potassium 3.6, chloride 105, carbonate 30, BUN 8, creatinine 0.41, glucose 161 Micro: Repeat blood cultures are pending Wound cultures from 05/23 shows MRSA, acid-fast bacilli smear and fungal cultures are pending Blood cultures on 05/20/21 shows MRSA A/P: 1. Acute DKA secondary to noncompliance with medications, resolved Blood sugars remains uncontrolled; HbA1c is 11.4 Hold Lantus in anticipation of surgery today Continue with insulin sliding scale with Accu-Cheks ACHS 2. Acute diabetic foot wound with cellulitis of the right lower extremity, concerning for possible acute osteomyelitis Status post wound debridement x2 by podiatry Wound cultures growing MRSA and Enterococcus faecalis Previous MRI of the foot showed mild acute on chronic osteomyelitis of the second and third metatarsal bones, surrounded by fluid and small 2 x 2 fluid collection in the subcutaneous tissue about the dorsum and base of the proximal phalanx of the great toe. Large collection above the dorsal of the midfoot Repeat MRI of the leg and foot on 05/26/21 shows infectious myositis and superficial abscesses of the extensor compartment of the lower leg, osteomyelitis of the right cuboid bone. ID following. 3. MRSA bacteremia, repeat blood cultures pending, continue on IV vancomycin 4. Acute on chronic anemia, likely secondary to blood loss anemia, Hemoglobin today is 8.0 Will transfuse 1 unit of packed RBC in anticipation of blood loss during surgery Check iron stores 5. Hypokalemia, resolved 6. Rest of her chronic medical conditions remained stable 7. DVT prophylaxis with Lovenox subcu Visit Charges Inpatient E&M: 50837 Subs Hosp L2
[2021-05-28] MEDS: Menthol/Lanolin/Calamine/Znox 113 GM Tube 1 APPLIC TOPICAL ×2 (14:25→21:31)
--- NOTE | 2021-05-28 14:46 | CASEMGMT ---
Social Work SW called daughter Erika to inquire about pt's COBRA, as she was assisting pt in getting in touch with her prior employer. Erika states she has not heard back, will call this SW if she hears back today. JOSE Jean Baptiste
[2021-05-28 16:30] LABS: Bedside Glucose 128 mg/dL (70-110)
--- NOTE | 2021-05-28 16:52 | NURSING ---
PT TO OR VIA BED
--- NOTE | 2021-05-28 19:21 | PCM.OPRPT ---
Problems Associated Problem List Diagnoses (1) MRSA bacteremia: (2) Cellulitis of right lower limb: (3) Infectious tenosynovitis: Report of Operation Date of Procedure: 05/28/21 Pre-Operative Diagnosis: Right leg abscess with infectious tenosynovitis Right foot infection Post-Operative Diagnosis: Right leg abscess with infectious tenosynovitis Right foot infection Surgery/Procedure Performed:: Debridement of nonviable soft tissue and tendon right foot and ankle Incision and drainage of right leg including fasciotomy Description of Surgical Findings:: Hemostasis: No tourniquet utilized. Electrocauterization. Anatomic dissection. Nylon suture tie Materials: 2-0 nylon Injections: None Complications: None Post irrigation culture sent for aerobic, anaerobic, acid-fast, fungal right leg and foot debridement The patient tolerated the procedure and anesthesia well. The patient was transported to the PACU with vital signs stable and vascular status intact to the surgical limb. To ice and elevate for pain and inflammation management. Postoperative pain medication was ordered. Postoperative orders were entered electronically. Surgeon: Irina Gonzalez oxyacetylene welder: None (Fresh Work Wrapper Layer: Ha Anderson, PGY1, DPM) Type of Anesthesia: General Specimen's removed: post irrigation culture - aerobic, anaerobic, acid fast, fungal Drains: none Estimated Blood Loss (mL): 300 mL Description of Procedure: Indications: This 55-year-old uncontrolled diabetic female was admitted for right lower extremity infection. She had surgical widespread multiple debridements performe don 05-23-[address] Alexandre. She also was diagnosed with MRSA bacteremia. She has continued leukocytosis and purulent drainage coming from the leg and foot. Additional MRI of the ankle and foot suggest infectious tenosynovitis of the anterior leg compartment with concern of additional abscesses. Clinically, her pulses are palpable and she has widespread exposure of extensor tendons including the tibialis anterior that are necrotic. There is continued purulence and devitalized tissue to the dorsal medial foot, dorsal lateral foot ulcer, and extensor tendonsextending into the leg. Preoperative H&P were reviewed including her diagnostic data. Her anemia and leukocytosis are noted. Preoperative indications, planned procedure, benefits, risk, anticipated healing time and management were reviewed. The patient understands and elects proceed with surgery at this time. No guarantees were made. The patient understands risk and complications include but are not limited to following: pain, swelling, scarring, need for further surgery, tendon contracture, transfer lesion, arthritis, need for further surgery, delayed or nonhealing, infection, blood clot, allergic reaction, loss of limb, function, or life. The informed surgical limb and consent were signed. I answered all the patient's questions. She underwent blood transfusion in the preoperative setting and discussed the case with Dr. Bowman. The patient also understands there is an inherent risk with being in the hospital and undergoing a procedure during the time of COVID-19 pandemic. The patient understands precautions are being taken to prevent transmission. This patient understands the benefits and risks of having a procedure at this time versus waiting in which the benefits are reasonable at this time. Procedure in detail: The patient was transported to the operating room via cart and placed on the operating table in the supine position. Final verification of the patient, surgery, limb designation was performed via the timeout procedure. IV antibiotics were held until after the post debridement irrigation cultures were obtained; vancomycin. A right pneumatic thigh tournique was placed but was not ultimately utilized. The case was performed wet. Abump was placed to allow good exposure. The right lower extremity was prepped and draped in the usual aseptic manner. General anesthesia was initiated by the anesthesia team. Surgery proceeded as a following: A 15 blade scalpel was used to make a leg incision to extend the anterior lateral leg prior I & D site by about seven additional inches proximally. Blunt dissection was performed down to the extensor digitor longus, extensor hallucis longus and tibialis anterior tendon sheaths in which fasciotomies were performed. Copious amounts of purulent drainage was mainly coming from the tibialis anterior compartment: approximately 50 cc. Care was taken to perform blunt finger dissection to preserve all neurovascular structures throughout the entire procedure. Next, attention was directed to the dorsal lateral, dorsal, and dorsal medial and medial incisions in which all devitalized infectious tissue was excised with 15 blade scalpe and also versa jet setting eight. The tendon excised included devitalized tissue (subcutaneous and tendon < 20 sq cm). Additional capsular tissue was also excised that was devitalized. Approximately 40% of the tibialis anterior and extensor hallucis longus were removed with 15 blade scalpel and pickup at the level of the ankle extending into the foot. The entire peroneus brevis tendon was also devitalized and this was compromised. Infectious tissue was removed in total and the PB tendon is no longer intact. Copious saline irrigation was performed. Post irrigation cultures were obtained including aerobic, anearobic, acid fast, and fungal. Pressure was applied to maintain hemostasis and a stick tie was used to the distal medial wound bed also. No pulsatile bleeding was noted and capillary refill time was brisk to all digits of the right foot. A postoperative dressing consisting of Adaptic, Betadine soaked gauze packed into each compartment and I & D site, 4 x 4 gauze, abdominal pad, and Sebastian wrap were applied. After procedure: The patient tolerated the procedure and anesthesia well. The patient was transported to the PACU with vital signs stable and vascular status intact to the surgical limb. To ice and elevate for pain and inflammation management. Postoperative orders were entered electronically. Post operative culture results are pending. It is noted she did have a blood transfusion earlier today. She continues on IV vancomycin and is under the management of infectious disease. She will be followed very close while in house. Her enoxaparin will be resumed tomorrow morning. She understands that she is is still at risk for continued systemic illness, limb loss and even due to this serious condition. The functionality of her limb is also compromised. She may require additional bracing if her limb remains salvageable. Additional debridements may also be needed. Medical management per hospitalist is noted and appreciated. Irina Gonazlez DPM, [facility] Grafts/Implants Used: none Complications none Admit VTE Documentation VTE Mechan Device Prophylaxis: SCD's VTE Pharm Prophylaxis ordered?: Yes
--- NOTE | 2021-05-28 19:37 | PCM.RX.CS ---
Consult Pharmacy has been consulted to manage selected antiobiotic: Vancomycin Type of Consult: Follow-up Labs: Sodium 140 mmol/L (136-145) 05/28/21 05:35 Potassium 3.6 mmol/L (3.5-5.1) 05/28/21 05:35 Chloride 105 mmol/L (98-107) 05/28/21 05:35 Carbon Dioxide 30.0 mmol/L (21.0-32.0) 05/28/21 05:35 Anion Gap 5 (5-15) 05/28/21 05:35 BUN 8 mg/dL (7-18) 05/28/21 05:35 Creatinine 0.41 mg/dL (0.55-1.02) L 05/28/21 05:35 Est GFR (MDRD) Af Amer 207 mL/min (>60) 05/28/21 05:35 Est GFR (MDRD) Non-Af 171 mL/min (>60) 05/28/21 05:35 BUN/Creatinine Ratio 19.6 RATIO (10-20) 05/28/21 05:35 Glucose 161 mg/dL (74-106) H 05/28/21 05:35 Vancomycin Trough 22.0 ug/mL (5.0-15.0) H 05/28/21 17:29 Random Vancomycin 9.0 ug/mL (0.0-15.0) 05/23/21 12:30 Microbiology: Microbiology 05/21/21 19:00 Wound Abcess - Right Foot Gram Stain - Final 05/21/21 19:00 Wound Abcess - Right Foot Wound Culture - Final Meth. resistant Staph. aureus 05/21/21 19:00 Wound Abcess - Right Foot Anaerobic Culture - Final No anaerobic bacteria isolated. 05/23/21 18:30 Tissue - Right Foot Gram Stain - Final 05/23/21 18:30 Tissue - Right Foot Wound Culture - Final Meth. resistant Staph. aureus 05/23/21 18:30 Tissue - Right Foot Anaerobic Culture - Final No anaerobic bacteria isolated. 05/20/21 19:23 Blood Culture (Wb) - Left Wrist Blood Culture - Final Staphylococcus aureus 05/20/21 19:00 Blood Culture (Wb) - Right Hand Bacteria Detection (PCR) - Final Meth. resistant Staph. aureus 05/20/21 19:00 Blood Culture (Wb) - Right Hand Blood Culture - Final Meth. resistant Staph. aureus 05/21/21 00:05 Wound - Toe Gram Stain - Final 05/21/21 00:05 Wound - Toe Wound Culture - Final Meth. resistant Staph. aureus Enterococcus faecalis Goal Trough: 15-20 mcg/mL Pharmacy Plan for Drug Dosing: VANCOMYCIN LEVEL RECEIVED Current Vancomycin Dose: 1250MG IV Q8H Number of Doses Received: SEVERAL Vancomycin Level: 22 Hours Since Last Dose: 7HR Renal Function: 0.41 Renal Function Trend: STABLE Lab/Micro: (+) MRSA Vancomycin Plan/Comments: Patient has been on 1250mg iv q8h for several doses. Trough drawn which resulted in a value of 22 (drawn correctly). Patient has already had infused the 1800 dose, so will hold subsequent doses and draw a random level tomorrow and resume once vancomycin trough is <20. HOLD current vancomycin dose Pending Level: *RANDOM* 05/29/21 @6052 Pharmacy Service will continue to monitor and adjust dosing as required.
[2021-05-28 20:21] LABS: Bedside Glucose 151 mg/dL (70-110)
[2021-05-28] MEDS: Acetaminophen 325 MG Tablet 650 MG PO (21:25)
[2021-05-28] MEDS: oxyCODONE 5 MG Tablet PO (21:26)
[2021-05-28] MEDS: Insulin Lispro 100 UNIT/ML INSULN.PEN SC (21:29)
[2021-05-28 21:41] LABS: Bedside Glucose 173 mg/dL (70-110)
[2021-05-29] VITALS (13 sets, daily range): BP systolic 90–116; BP diastolic 48–67; PULSE 87–104; RESP 16–18; TEMP 36.4–37.3; O2SAT 92–98
[2021-05-29] MEDS: 0.9% Normal Saline 1,000 ML 999 ML IV (02:00)
[2021-05-29 02:22] LABS: Absolute Lymphocyte Count 2.35 X10^3/uL (0.83-4.51); Absolute Neutrophil Count 16.4 X10^3/uL (2.0-7.7); Basophil# 0.14 X10^3/uL; Basophil% 0.7 % (0-1); Eosinophil# 0.17 X10^3/uL; Eosinophils% 0.8 % (0-5); Hematocrit 25.1 % (37-47); Hemoglobin 7.9 g/dL (12.0-15.0); Lymphocyte # 2.35 X10^3/ul (0.83-4.51); Lymphocyte % 11.3 % (19-41); Mean Corp Hgb Conc 31.5 g/dL (32-36); Mean Corpuscular Hgb 29.9 pg (27.0-32.0); Mean Corpuscular Volume 95.1 fL (81-99); Monocyte# 0.91 X10^3/uL; Monocyte% 4.4 % (0-10); NRBC Flagged by Analyzer 0 % (0-5); Neutrophil # 16.41 X10^3/uL (2.7-7.7); Platelet Count 609 K/mm3 (150-450); RBC Distribution Width CV 15.5 % (11.6-14.6); RBC Distribution Width SD 51.5 fl (35.1-43.9); Red Blood Count 2.64 M/mm3 (4.2-5.4); White Blood Count 20.8 K/mm3 (4.4-11.0)
[2021-05-29 02:51] LABS: Anion Gap 4 (5-15); BUN 12 mg/dL (7-18); BUN/Creat Ratio 17.9 RATIO (10-20); Calcium,Total 9.1 mg/dL (8.5-10.1); Chloride 105 mmol/L (98-107); Creatinine, Serum 0.67 mg/dL (0.55-1.02); EST Glomerular Filtration Rate 96 mL/min (>60); Est Glom Filt Rate - Afr Amer 117 mL/min (>60); Estimated Creatinine Clearance 94.58 ml/min; Glucose 190 mg/dL (74-106); Sodium Level 140 mmol/L (136-145)
[2021-05-29] MEDS: Morphine 2 MG/ML Syringe IV (06:39)
[2021-05-29 06:50] LABS: Bedside Glucose 149 mg/dL (70-110)
--- NOTE | 2021-05-29 07:27 | PCM.PROGNOTE ---
Subjective Subjective this 55-year-old diabetic female was seen bedside postoperative day #2 staged widespread debridement with incision and drainage including fasciotomy of the right leg. She denies fever, chill, nausea, vomiting. Her pain is moderate with dressing change. Objective Data Objective Data Vital Signs: Vital Signs Temp Pulse Resp BP Pulse Ox 98.1 F 92 16 113/62 98 05/29/21 03:24 05/29/21 03:24 05/29/21 03:24 05/29/21 03:24 05/29/21 03:24 Oxygen Flow Rate (L/min) 2 Oxygen Delivery Method Nasal Cannula Weight: 87.2 kg Body Mass Index (BMI) 29.2 Intake & Output: Intake and Output for Last 24 Hours 05/27/21 05/28/21 05/29/21 23:59 23:59 23:59 Intake Total 825 / 825 1388 / 1388 1000 / 1000 Output Total 0 / 0 Balance 825 / 825 1388 / 1388 1000 / 1000 Lab / Micro Data Result Diagrams: 05/29/21 02:11 05/29/21 02:11 Labs: Laboratory Results - last 24 hr 05/28/21 05:35: Diff Path Review Reviewed 05/28/21 05:35: Iron 34 L, TIBC 246 L, Iron Saturation 13.8 L 05/28/21 07:31: POC Glucose 160 H 05/28/21 08:47: Blood Type A POSITIVE, Antibody Screen NEGATIVE 05/28/21 08:47: Crossmatch See Detail 05/28/21 11:33: POC Glucose 135 H 05/28/21 16:24: POC Glucose 128 H 05/28/21 17:29: Vancomycin Trough 22.0 H 05/28/21 20:14: POC Glucose 151 H 05/28/21 21:24: POC Glucose 173 H 05/29/21 02:11: WBC 20.8 H, RBC 2.64 L, Hgb 7.9 L, Hct 25.1 L, MCV 95.1, MCH 29.9, MCHC 31.5 L, RDW Std Deviation 51.5 H, RDW Coeff of Amos 15.5 H, Plt Count 609 H, MPV 9.0, Immature Gran % (Auto) 3.800 H, Neut % (Auto) 79.0 H, Lymph % (Auto) 11.3 L, [place]amo % (Auto) 4.4, Eos % (Auto) 0.8, Baso % (Auto) 0.7, Absolute Neuts (auto) 16.4 H, Absolute Lymphs (auto) 2.35, Nucleated RBC % 0 05/29/21 02:11: Sodium 140, Potassium 4.0, Chloride 105, Carbon Dioxide 31.0, Anion Gap 4 L, BUN 12, Creatinine 0.67, Estim Creat Clear Calc 94.58, Est GFR (MDRD) Af Amer 117, Est GFR (MDRD) Non-Af 96, BUN/Creatinine Ratio 17.9, Glucose 190 H, Calcium 9.1 05/29/21 06:38: POC Glucose 149 H Micro: Microbiology 05/21/21 19:00 Wound Abcess - Right Foot Gram Stain - Final 05/21/21 19:00 Wound Abcess - Right Foot Wound Culture - Final Meth. resistant Staph. aureus 05/21/21 19:00 Wound Abcess - Right Foot Anaerobic Culture - Final No anaerobic bacteria isolated. 05/23/21 18:30 Tissue - Right Foot Gram Stain - Final 05/23/21 18:30 Tissue - Right Foot Wound Culture - Final Meth. resistant Staph. aureus 05/23/21 18:30 Tissue - Right Foot Anaerobic Culture - Final No anaerobic bacteria isolated. 05/20/21 19:23 Blood Culture (Wb) - Left Wrist Blood Culture - Final Staphylococcus aureus 05/20/21 19:00 Blood Culture (Wb) - Right Hand Bacteria Detection (PCR) - Final Meth. resistant Staph. aureus 05/20/21 19:00 Blood Culture (Wb) - Right Hand Blood Culture - Final Meth. resistant Staph. aureus 05/21/21 00:05 Wound - Toe Gram Stain - Final 05/21/21 00:05 Wound - Toe Wound Culture - Final Meth. resistant Staph. aureus Enterococcus faecalis Physical Exam Const alert and no apparent distress General Appearance: cooperative HEENT normocephalic Extremity normal capillary refill Extremity Narrative: no cyanosis, no calf tenderness palpable pulses muscle wasting noted. no tenderness. General Extremity: edema Skin Skin Narrative: Her skin is atrophic. Right lower extremity has multiple incision and drainage with debridement sites. There is no noa purulence on expression from the foot or leg. There is some devitalized tissue still noted at the most proximal aspect of the leg fasciotomy site which will continue to be monitored. Is noted there is exposed bone and tendon at all of the sites. The previously noted devitalized tendon, necrotic tissue and purulence remains resolved and there is healthy bleeding tissue. There is no additional palpable bogginess or fluctuance of the leg ankle or foot. There is both healthy and devitalized necrotic tissue noted at all sites also. The dorsal central incision appears healthy without any purulence. There is no odor. Erythema resolved. No streaking or odor Assessment & Plan Assessment/Plan (1) MRSA bacteremia: (2) Cellulitis of right lower limb: (3) Infectious tenosynovitis: PLAN: Re-evaluation performed. s/p wide I+D debridement right foot and ankle from 05-23-21 and 05-28-21. Her vitals are stable and she remains afebrile. white blood cell count is still elevated at about 20.8. There is no active bleeding from right lower extremity at this time. There is no noa purulence or erythema noted this morning. Blood cultures reviewed and noted to be positive for MRSA. Repeat cultures pending. Right foot wound culture has also been obtained and reviewed - noted MRSA and entercoccus. She is on IV antibiotics Vancomycin which she will continue. Infectious disease specialist intervention is reviewed and appreciated. Additional post debridement irrigation cultures from surgery yesterday are pending. Dressing changes: today applied clean, Dakin wet to dry gauze, kerlix, abd pads and verito dressing - change BID via dakin's wet to dry. No weightbearing right foot, keep foot elevated. She has significant improvement in tissue quality and reduced purulence since her staged revisional surgery yesterday. This will need to be monitored very close. D/C planning - Recommend nursing placement upon discharge for wound care, antibiotics, also will need to be nonweightbearing right foot. Medical management per hospitalist service is noted and appreciated. Okay to resume anticoagulation medication this morning from a surgical standpoint. Podiatry will continue to follow. I answered all the patient's questions. Please do not hesitate to call if you have any questions. Irina Gonzalez DPM, [facility] [phone]
[2021-05-29] MEDS: Baclofen 10 MG Tablet PO ×3 (08:11→17:30)
[2021-05-29 10:25] LABS: Vancomycin, Random Level 19.3 ug/mL (0.0-15.0)
--- NOTE | 2021-05-29 10:26 | CASEMGMT ---
Addendum entered by Chiqui Holloway 05/29/21 11:10: Daughter forwarded the the COBRA to this SW, SW passed in on to the SW on MS2. Daughter then called, asked if pt can sign the form. SW let MS2 SW know, she will follow up. JOSE Jean Baptiste Original Note: Social Work Daughter called and said she got a letter from [employer], she is going to call and then email the letter to this SW. We do have pt's [employer] insurance information on file, so once we know that the [employer] is again active we can let financial know and use this for long term placement coverage. Daughter states understanding. SW will continue to follow. JOSE Jea nBaptiste
[2021-05-29] MEDS: Montelukast 10 MG Tablet PO (10:27)
[2021-05-29] MEDS: Enoxaparin 30 MG/0.3 ML Syringe SC ×2 (10:27→21:04)
[2021-05-29] MEDS: Levothyroxine 150 MCG Tablet PO (10:27)
[2021-05-29] MEDS: Menthol/Lanolin/Calamine/Znox 113 GM Tube 1 APPLIC TOPICAL ×2 (10:27→21:00)
--- NOTE | 2021-05-29 10:32 | PCM.PN.ID ---
Physical Exam Narrative Feeling ok, leg sore, no fever, no n/v/d. Const alert General Appearance: cooperative Resp normal air movement and clear to auscultation bilaterally Cardio regular rate and regular rhythm GI soft to palpation, non-tender and non-distended Skin Skin Narrative: leg wrapped ID ID: Route of nutrition/ use of supplements: [] Nutritional Intake: [] IV Site: [] Pink Catheter: [] Assessment & Plan Assessment/Plan (1) Diabetes mellitus with diabetic polyneuropathy: QUALIFIERS: Diabetes mellitus type: type 2 Diabetes mellitus intermediate card tender insulin use: without intermediate card tender use Qualified Code(s): E11.42 - Type 2 diabetes mellitus with diabetic polyneuropathy (2) Abscess of foot: (3) MRSA bacteremia: PLAN: MRSA bacteremia with R lower leg osteo, abscesses. Imaging shows hardware in place. On iv vanc. TTE showed no veg. Repeat bcx neg at 48h. Is covid vaccinated x3. Plan will be for 6 weeks iv abx. Taken back to OR 05/[address] Gonzalez, large amount of pus drained. Will follow
--- NOTE | 2021-05-29 11:02 | PN.HOSP_ITS ---
Documented by User: Masood RUBIO 05/29/21 11:21 Subjective Subjective Patient is a 55-year-old female comfortably resting in bed, alert and orient x3. Denies development of any new symptoms overnight. Does not appear in acute distress. Objective Data Objective Data Vital Signs: Vital Signs Temp Pulse Resp BP Pulse Ox 98.3 F 91 16 104/54 L 97 05/29/21 08:08 05/29/21 08:08 05/29/21 08:08 05/29/21 08:08 05/29/21 08:08 Oxygen Flow Rate (L/min) 2 Oxygen Delivery Method Nasal Cannula Weight: 194 lb 10.691 oz Body Mass Index (BMI) 29.2 Intake & Output: Intake and Output for Last 24 Hours 05/27/21 05/28/21 05/29/21 23:59 23:59 23:59 Intake Total 825 / 825 1388 / 1388 1000 / 1000 Output Total 0 / 0 Balance 825 / 825 1388 / 1388 1000 / 1000 Lab / Micro Data Result Diagrams: 05/29/21 02:11 05/29/21 02:11 Labs: Laboratory Results - last 24 hr 05/28/21 05:35: Diff Path Review Reviewed 05/28/21 08:47: Crossmatch See Detail 05/28/21 11:33: POC Glucose 135 H 05/28/21 16:24: POC Glucose 128 H 05/28/21 17:29: Vancomycin Trough 22.0 H 05/28/21 20:14: POC Glucose 151 H 05/28/21 21:24: POC Glucose 173 H 05/29/21 02:11: WBC 20.8 H, RBC 2.64 L, Hgb 7.9 L, Hct 25.1 L, MCV 95.1, MCH 29.9, MCHC 31.5 L, RDW Std Deviation 51.5 H, RDW Coeff of Amos 15.5 H, Plt Count 609 H, MPV 9.0, Immature Gran % (Auto) 3.800 H, Neut % (Auto) 79.0 H, Lymph % (Auto) 11.3 L, [place] % (Auto) 4.4, Eos % (Auto) 0.8, Baso % (Auto) 0.7, Absolute Neuts (auto) 16.4 H, Absolute Lymphs (auto) 2.35, Nucleated RBC % 0 05/29/21 02:11: Sodium 140, Potassium 4.0, Chloride 105, Carbon Dioxide 31.0, Anion Gap 4 L, BUN 12, Creatinine 0.67, Estim Creat Clear Calc 94.58, Est GFR (MDRD) Af Amer 117, Est GFR (MDRD) Non-Af 96, BUN/Creatinine Ratio 17.9, Glucose 190 H, Calcium 9.1 05/29/21 06:38: POC Glucose 149 H 05/29/21 09:50: Random Vancomycin 19.3 H Micro: Microbiology 05/28/21 Unknown Wound - Leg, Right Gram Stain - Preliminary 05/27/21 10:00 Blood Culture (Wb) - Left Hand Blood Culture - Preliminary No growth in 48 hours. 05/21/21 19:00 Wound Abcess - Right Foot Gram Stain - Final 05/21/21 19:00 Wound Abcess - Right Foot Wound Culture - Final Meth. resistant Staph. aureus 05/21/21 19:00 Wound Abcess - Right Foot Anaerobic Culture - Final No anaerobic bacteria isolated. 05/23/21 18:30 Tissue - Right Foot Gram Stain - Final 05/23/21 18:30 Tissue - Right Foot Wound Culture - Final Meth. resistant Staph. aureus 05/23/21 18:30 Tissue - Right Foot Anaerobic Culture - Final No anaerobic bacteria isolated. 05/20/21 19:23 Blood Culture (Wb) - Left Wrist Blood Culture - Final Staphylococcus aureus 05/20/21 19:00 Blood Culture (Wb) - Right Hand Bacteria Detection (PCR) - Final Meth. resistant Staph. aureus 05/20/21 19:00 Blood Culture (Wb) - Right Hand Blood Culture - Final Meth. resistant Staph. aureus 05/21/21 00:05 Wound - Toe Gram Stain - Final 05/21/21 00:05 Wound - Toe Wound Culture - Final Meth. resistant Staph. aureus Enterococcus faecalis Physical Exam Const alert, oriented x3 and no apparent distress HEENT head/scalp atraumatic and moist oral mucous membranes Head and Scalp: normocephalic Eyes PERRL, EOMs intact bilaterally and conjunctivae normal Neck no lymphadenopathy, supple and no JVD Resp normal respiratory effort, no retractions, no use of accessory muscles and clear to auscultation bilaterally Cardio regular rate, regular rhythm, no murmurs and no JVD GI normal to inspection, nondistended, normoactive bowel sounds, soft to palpation and non-tender Extremity normal to inspection, full ROM and no clubbing, cyanosis or edema Skin no rashes or lesions noted, no wounds and skin turgor normal Neuro CN's II-XII intact bilaterally Psych affect normal Assessment & Plan Assessment/Plan (1) Charcot's joint of right foot: (2) Acute osteomyelitis of left foot: (3) Infectious tenosynovitis: (4) Cellulitis of right lower limb: (5) Diabetes mellitus with diabetic polyneuropathy: QUALIFIERS: Diabetes mellitus long distance billing operator insulin use: without long distance billing operator use Diabetes mellitus type: type 2 Qualified Code(s): E11.42 - Type 2 diabetes mellitus with diabetic polyneuropathy PLAN: Day 9 Discharge planning: Discharge to SNF pending insurance approval. CM/SW following. 1 ) Acute osteomyelitis of right foot POD 2 status post debridement and I&D including fasciotomy of the right leg. ID and podiatry following. Patient denies any acute symptoms of the right foot. Vancomycin on hold due to elevated trough level. Will reassess tomorrow for c ontinuation of vancomycin. 2.) Diabetes mellitus type 2 Continue scheduled Lantus as well as ACHS blood sugars with sliding scale insulin DVT prophylaxis- Lovenox Patient seen by Masood Townsend PA-C, under the supervision of Dr. Bowman. Documented by User: Dr. Beatrice Bowman MD 05/29/21 16:22 Objective Data Lab / Micro Data Result Diagrams: 05/29/21 02:11 05/29/21 02:11 Charges/Coding Addendum Addendum: This patient was seen in conjunction with RAMIRO White. I have independently interviewed and examined the patient and reviewed pertinent historical, laboratory, and other data. I have reviewed her note and concur with her documentation Patient was seen and examined. No acute events overnight. Her pain is fairly controlled. She denied any fever or chills. She was transfused 1 unit of blood yesterday. Vitals: Temp Pulse Resp BP Pulse Ox 98.3 F 91 16 104/54 L 97 Physical exam: General: Alert, Oriented x3, Cooperative, No apparent distress, Well developed HEENT: Atraumatic Oral: Moist Mucosa Neck: Supple Lungs: Clear to auscultation Cardiovascular: HS I+II, regular, no murmurs Abdomen: Bowel Sounds Present, Soft, Non Tender Extremities: Right foot in dressing/Sebastian wrap, able to wiggle Labs: WBC count is 19.1, hemoglobin 8.0, platelet count 605 Sodium 140, potassium 3.6, chloride 105, carbonate 30, BUN 8, creatinine 0.41, glucose 161 Micro: Repeat blood cultures are pending Wound cultures from 05/23 shows MRSA, acid-fast bacilli smear and fungal cultures are pending Blood cultures on 05/20/21 shows MRSA A/P: 1. Acute DKA secondary to noncompliance with medications, resolved Blood sugars is better controlled; HbA1c is 11.4 Hold Lantus in anticipation of surgery today Continue with insulin sliding scale with Accu-Cheks ACHS 2. Acute diabetic foot wound with cellulitis of the right lower extremity, concerning for possible acute osteomyelitis Status post wound debridement x2 by podiatry Wound cultures growing MRSA and Enterococcus faecalis Previous MRI of the foot showed mild acute on chronic osteomyelitis of the second and third metatarsal bones, surrounded by fluid and small 2 x 2 fluid collection in the subcutaneous tissue about the dorsum and base of the proximal phalanx of the great toe. Large collection above the dorsal of the midfoot Repeat MRI of the leg and foot on 05/26/21 shows infectious myositis and superficial abscesses of the extensor compartment of the lower leg, osteomyelitis of the right cuboid bone. ID following. 3. MRSA bacteremia, repeat blood cultures pending, continue on IV vancomycin 4. Acute on chronic anemia, likely secondary to blood loss anemia, Hemoglobin today is 7.9 Status post 1 unit of pRBC Will give IV venofer 5. Hypokalemia, resolved 6. Rest of her chronic medical conditions remained stable 7. DVT prophylaxis with Lovenox subcu Visit Charges Inpatient E&M: 52791 Subs Hosp L3
[2021-05-29 12:01] LABS: Bedside Glucose 293 mg/dL (70-110)
--- NOTE | 2021-05-29 12:27 | CASEMGMT ---
Addendum entered by Radha Birch 05/29/21 15:49: SW spoke with pt dgt Elena who requested signed COBRA election form be emailed to her and she would send it in to insurance. Form emailed. ABDOUL spoke with [employer] who states they will only cover cost of COBRA if pt is behind in payments. SW requested [employer] contact pt dgt to discuss COBRA coverage. WHITNEY You Original Note: Social Work SW received copy of COBRA election form and reviewed form with pt. Pt signed form. ABDOUL spoke with [employer] regarding COBRA. Waiting for return call. WHITNEY You
[2021-05-29] MEDS: Insulin Lispro 100 UNIT/ML INSULN.PEN SC ×3 (13:29→21:02)
--- NOTE | 2021-05-29 14:19 | PCM.RX.CS ---
Consult Pharmacy has been consulted to manage selected antiobiotic: Vancomycin Type of Consult: Follow-up Suspected Infection: Skin/Soft tissue Prior Doses of Antibiotics Received/Current Regimen: Has been on 1250mg iv q8h. Labs: Sodium 140 mmol/L (136-145) 05/29/21 02:11 Potassium 4.0 mmol/L (3.5-5.1) 05/29/21 02:11 Chloride 105 mmol/L (98-107) 05/29/21 02:11 Carbon Dioxide 31.0 mmol/L (21.0-32.0) 05/29/21 02:11 Anion Gap 4 (5-15) L 05/29/21 02:11 BUN 12 mg/dL (7-18) 05/29/21 02:11 Creatinine 0.67 mg/dL (0.55-1.02) 05/29/21 02:11 Est GFR (MDRD) Af Amer 117 mL/min (>60) 05/29/21 02:11 Est GFR (MDRD) Non-Af 96 mL/min (>60) 05/29/21 02:11 BUN/Creatinine Ratio 17.9 RATIO (10-20) 05/29/21 02:11 Glucose 190 mg/dL (74-106) H 05/29/21 02:11 Vancomycin Trough 22.0 ug/mL (5.0-15.0) H 05/28/21 17:29 Random Vancomycin 19.3 ug/mL (0.0-15.0) H 05/29/21 09:50 Microbiology: Microbiology 05/28/21 Unknown Wound - Leg, Right Gram Stain - Final 05/28/21 Unknown Wound - Leg, Right Wound Culture - Preliminary Staphylococcus aureus Gram positive organism 05/27/21 10:00 Blood Culture (Wb) - Left Hand Blood Culture - Preliminary No growth in 48 hours. 05/21/21 19:00 Wound Abcess - Right Foot Gram Stain - Final 05/21/21 19:00 Wound Abcess - Right Foot Wound Culture - Final Meth. resistant Staph. aureus 05/21/21 19:00 Wound Abcess - Right Foot Anaerobic Culture - Final No anaerobic bacteria isolated. 05/23/21 18:30 Tissue - Right Foot Gram Stain - Final 05/23/21 18:30 Tissue - Right Foot Wound Culture - Final Meth. resistant Staph. aureus 05/23/21 18:30 Tissue - Right Foot Anaerobic Culture - Final No anaerobic bacteria isolated. 05/20/21 19:23 Blood Culture (Wb) - Left Wrist Blood Culture - Final Staphylococcus aureus 05/20/21 19:00 Blood Culture (Wb) - Right Hand Bacteria Detection (PCR) - Final Meth. resistant Staph. aureus 05/20/21 19:00 Blood Culture (Wb) - Right Hand Blood Culture - Final Meth. resistant Staph. aureus 05/21/21 00:05 Wound - Toe Gram Stain - Final 05/21/21 00:05 Wound - Toe Wound Culture - Final Meth. resistant Staph. aureus Enterococcus faecalis Weight used for dosin kg Estimated Creatinine Clearance: 95ml/min Goal Trough: 15-20 mcg/mL Pharmacy Plan for Drug Dosing: Random level this AM ~15hrs post last dose was 19.3. Renal function changed from Cr 0.41 to 0.67. Concern is level maybe trending >20 with continued q8hr dosing, therefore will decrease dose to 1250mg iv q12h. Another trough level has been ordered for before 4th dose of new regimen. Pharmacy Service will continue to monitor and adjust dosing as required. Follow-Up Labs: Trough Vancomycin - 1.8.22@0330 before 0400 dose
[2021-05-29] MEDS: Clotrimazole 1 APPLIC Tube TOPICAL ×2 (15:14→21:01)
[2021-05-29] MEDS: 0.9% Saline Lock 10 ML Syringe IV (16:01)
[2021-05-29 16:55] LABS: Bedside Glucose 319 mg/dL (70-110)
[2021-05-29] MEDS: DAKIN'S SOL HALF STRENGTH (=0.25%) 1 APPLIC TOPICAL (21:06)
[2021-05-29 21:11] LABS: Bedside Glucose 259 mg/dL (70-110)
--- NOTE | 2021-05-29 23:33 | PCM.PN.BLA ---
Progress Note Nurse reported that patient is having altered mental status. From information received from nurse stroke alert was called. Patient was examined at bedside. Nurse who had previously seen patient and patient herself reported that her symptoms are unchanged. Stroke alert cancelled.
[2021-05-29 23:35] LABS: Bedside Glucose 267 mg/dL (70-110)
--- NOTE | 2021-05-29 23:41 | NURSING ---
The primary nurse Vipul Lynne noticed a mental status change and slight facial droop on the left side of the face in the patient while she was changing the patients dressings on her right leg. She contacted me and I went in to assess the patient and she was displaying left sided weakness and pain and could not tell me where she specifically lived in [place] or where she worked. I was not familiar with the patients baseline cognition so I contacted the RN Heide Vickers who was her primary care provider from the night before to find out the patients baseline. She said the patient was drowsy from surgery and had a flat affect but was not confused for her. I went back into the patients room with the nursing supervisor pipe manufacture who also assessed the patient and we determined it was a good idea to contact the physician Andres Palomares. I contacted the physician about the mental status change and facial droop and he told Vipul to call a stroke alert. During the initial stroke work up the ICU nurse Deborah came over to help and she was familiar with the patient and her cognitive baseline. After the physical stroke assessment and questions it was determined by The ICU nurse and Dr. Jason Palomares that there was no need to continue with the stroke alert and it was cancelled. The physician told the primary nurse to check on the patient several times in the next couple of hours and contact him and call another stroke alert if patient shows any signs of a stroke.
--- NOTE | 2021-05-29 23:45 | NURSING ---
This RN arrived to bedside, NIHSS assessed and documented. Pt actually shows improved strength from admission to her right side. NIH score 1 for LA drift only. Severe diabetic neuropathy limits sensation assessment to BLE, needed to assess pt's thigh sensation in order to complete. Pt has a flat affect that is unchanged from admission, pt questioned regarding if she knows why all of the nurses are in her room, pt answered no. Explained to pt that staff was there to assess whether or not she had a blood clot go to her brain and cause a stroke, pt responded well that wouldn't be good. Importance of following all commands as directed by nursing staff relayed to pt and she agreed to fully participate in assessment. Discussed with floor staff their original findings. Dr. Wilson arrived to room, assessment from floor staff and my assessment reviewed. Stroke Alert cancelled. Nursing supervisor building maintenance, hospitalist and POULTRY PROCESSING SUPERVISOR in agreement.
[2021-05-30] VITALS (12 sets, daily range): BP systolic 100–125; BP diastolic 55–80; PULSE 81–98; RESP 16–18; TEMP 36.8–37.1; O2SAT 93–96
[2021-05-30 06:05] LABS: Bedside Glucose 166 mg/dL (70-110)
[2021-05-30] MEDS: Insulin Lispro 100 UNIT/ML INSULN.PEN SC ×4 (06:09→22:13)
[2021-05-30 07:00] LABS: Absolute Lymphocyte Count 2.81 X10^3/uL (0.83-4.51); Basophil# 0.13 X10^3/uL; Basophil% 0.7 % (0-1); Eosinophils% 1.6 % (0-5); Hematocrit 25.1 % (37-47); Hemoglobin 7.9 g/dL (12.0-15.0); Lymphocyte # 2.81 X10^3/ul (0.83-4.51); Lymphocyte % 14.9 % (19-41); Mean Corp Hgb Conc 31.5 g/dL (32-36); Mean Corpuscular Hgb 30.3 pg (27.0-32.0); Mean Corpuscular Volume 96.2 fL (81-99); Mean Platelet Vol. 9.6 fl (6.2-12.0); Monocyte# 0.73 X10^3/uL; Monocyte% 3.9 % (0-10); NRBC Flagged by Analyzer 0 % (0-5); Neutrophil % 74.5 % (47-70); Platelet Count 553 K/mm3 (150-450); RBC Distribution Width CV 15.5 % (11.6-14.6); RBC Distribution Width SD 52.1 fl (35.1-43.9); Red Blood Count 2.61 M/mm3 (4.2-5.4); White Blood Count 18.8 K/mm3 (4.4-11.0)
[2021-05-30] MEDS: Morphine 2 MG/ML Syringe IV ×2 (07:05→22:28)
--- NOTE | 2021-05-30 07:27 | PN_ITS ---
Subjective Subjective This 55 year old female seen today s/p Incision and Drainage with removal of necrotic tissue. She is resting comfortably in bed with no complaints. She denies any fever, nausea, vomiting, chills, or shortness of breath. Objective Data Objective Data Vital Signs: Vital Signs Temp Pulse Resp BP Pulse Ox 98.4 F 90 18 110/80 94 05/30/21 04:39 05/30/21 04:39 05/30/21 04:39 05/30/21 04:39 05/30/21 04:39 Oxygen Flow Rate (L/min) 2 Oxygen Delivery Method Room Air Weight: 89 kg Body Mass Index (BMI) 29.2 Intake & Output: Intake and Output for Last 24 Hours 05/28/21 05/29/21 05/30/21 23:59 23:59 23:59 Intake Total 1388 / 1388 2195.25 / 2195.25 419 / 419 Output Total 0 / 0 Balance 1388 / 1388 2195.25 / 2195.25 419 / 419 Lab / Micro Data Result Diagrams: 05/30/21 06:23 05/29/21 02:11 Labs: Laboratory Results - last 24 hr 05/29/21 09:50: Random Vancomycin 19.3 H 05/29/21 11:39: POC Glucose 293 H 05/29/21 16:21: POC Glucose 319 H 05/29/21 20:59: POC Glucose 259 H 05/29/21 23:30: POC Glucose 267 H 05/30/21 05:59: POC Glucose 166 H 05/30/21 06:23: WBC 18.8 H, RBC 2.61 L, Hgb 7.9 L, Hct 25.1 L, MCV 96.2, MCH 30. 3, MCHC 31.5 L, RDW Std Deviation 52.1 H, RDW Coeff of Amos 15.5 H, Plt Count 553 H, MPV 9.6, Immature Gran % (Auto) 4.400 H, Neut % (Auto) 74.5 H, Lymph % (Auto) 14.9 L, [place] % (Auto) 3.9, Eos % (Auto) 1.6, Baso % (Auto) 0.7, Absolute Neuts (auto) 14.0 H, Absolute Lymphs (auto) 2.81, Nucleated RBC % 0 Micro: Microbiology 05/28/21 Unknown Wound - Leg, Right Gram Stain - Final 05/28/21 Unknown Wound - Leg, Right Wound Culture - Preliminary Staphylococcus aureus Gram positive organism 05/27/21 10:00 Blood Culture (Wb) - Left Hand Blood Culture - Preliminary No growth in 48 hours. 05/21/21 19:00 Wound Abcess - Right Foot Gram Stain - Final 05/21/21 19:00 Wound Abcess - Right Foot Wound Culture - Final Meth. resistant Staph. aureus 05/21/21 19:00 Wound Abcess - Right Foot Anaerobic Culture - Final No anaerobic bacteria isolated. 05/23/21 18:30 Tissue - Right Foot Gram Stain - Final 05/23/21 18:30 Tissue - Right Foot Wound Culture - Final Meth. resistant Staph. aureus 05/23/21 18:30 Tissue - Right Foot Anaerobic Culture - Final No anaerobic bacteria isolated. 05/20/21 19:23 Blood Culture (Wb) - Left Wrist Blood Culture - Final Staphylococcus aureus 05/20/21 19:00 Blood Culture (Wb) - Right Hand Bacteria Detection (PCR) - Final Meth. resistant Staph. aureus 05/20/21 19:00 Blood Culture (Wb) - Right Hand Blood Culture - Final Meth. resistant Staph. aureus 05/21/21 00:05 Wound - Toe Gram Stain - Final 05/21/21 00:05 Wound - Toe Wound Culture - Final Meth. resistant Staph. aureus Enterococcus faecalis Physical Exam Const alert and no apparent distress General Appearance: cooperative HEENT normocephalic Extremity normal capillary refill Extremity Narrative: no cyanosis, no calf tenderness palpable pulses muscle wasting noted. no tenderness. General Extremity: edema Skin Skin Narrative: Her skin is atrophic. Right lower extremity has multiple incision and drainage with debridement sites. There is no noa purulence on expression from the foot or leg. There is some devitalized tissue still noted at the most proximal aspect of the leg fasciotomy site which will continue to be monitored. Is noted there is exposed bone and tendon at all of the sites. The previously noted devitalized tendon, necrotic tissue and purulence remains resolved and there is healthy bleeding tissue. There is no additional palpable bogginess or fluctuance of the leg ankle or foot. There is both healthy and devitalized necrotic tissue noted at all sites also. The dorsal central incision appears healthy without any purulence. There is no odor. Erythema resolved. No streaking or odor Neuro Neuro Narrative: lack of normal epicritic sensation via light touch consistent with neuropathy Assessment & Plan Assessment/Plan (1) MRSA bacteremia: (2) Cellulitis of right lower limb: (3) Infectious tenosynovitis: PLAN: Re-evaluation performed. s/p wide I+D debridement right foot and ankle from 05-23-21 and 05-28-21. Her vitals are stable and she remains afebrile. white blood cell count is still elevated at about 18.6. There is no active bleeding from right lower extremity at this time. There is no noa purulence or erythema noted this morning. Blood cultures reviewed and noted to be positive for MRSA. Repeat cultures pending. Right foot wound culture has also been obtained and reviewed - noted MRSA and entercoccus. She is on IV antibiotics Vancomycin which she will continue. Infectious disease specialist intervention is reviewed and appreciated. Additional post debridement irrigation cultures from surgery are pending. Dressing changes: today applied clean, Dakin wet to dry gauze, kerlix, abd pads and verito dressing - change BID via dakin's wet to dry. No weightbearing right foot, keep foot elevated. She has significant improvement in tissue quality and reduced purulence since her staged revisional surgery 05-28-21. This will need to be monitored very close. D/C planning - Recommend nursing placement upon discharge for wound care, antibiotics, also will need to be nonweightbearing right foot. Medical management per hospitalist service is noted and appreciated. Continue anticoagulation medication. Podiatry will continue to follow. I answered all the patient's questions. Please do not hesitate to call if you have any questions. Jason Lewis DPM [facility] [phone]
[2021-05-30 07:40] LABS: Anion Gap 4 (5-15); BUN 14 mg/dL (7-18); BUN/Creat Ratio 13.5 RATIO (10-20); Calcium,Total 9.6 mg/dL (8.5-10.1); Chloride 106 mmol/L (98-107); Creatinine, Serum 1.04 mg/dL (0.55-1.02); EST Glomerular Filtration Rate 58 mL/min (>60); Est Glom Filt Rate - Afr Amer 70 mL/min (>60); Estimated Creatinine Clearance 60.93 ml/min; Glucose 177 mg/dL (74-106); Potassium 3.7 mmol/L (3.5-5.1); Sodium Level 140 mmol/L (136-145)
--- NOTE | 2021-05-30 08:28 | NURSING ---
RESTING W/EYES CLOSED, NO DISTRESS NOTED
[2021-05-30] MEDS: Baclofen 10 MG Tablet PO ×3 (08:31→17:03)
[2021-05-30] MEDS: Clotrimazole 1 APPLIC Tube TOPICAL ×2 (08:56→22:10)
[2021-05-30] MEDS: Menthol/Lanolin/Calamine/Znox 113 GM Tube 1 APPLIC TOPICAL ×2 (08:56→22:11)
[2021-05-30] MEDS: DAKIN'S SOL HALF STRENGTH (=0.25%) 1 APPLIC TOPICAL ×2 (08:57→22:17)
--- NOTE | 2021-05-30 08:59 | NURSING ---
incont urine. changed and repositioned for breakfast. rle elevated on pillows. drsg/verito d&i
[2021-05-30] MEDS: Enoxaparin 30 MG/0.3 ML Syringe SC ×2 (10:36→22:11)
[2021-05-30] MEDS: Levothyroxine 150 MCG Tablet PO (10:36)
[2021-05-30] MEDS: Montelukast 10 MG Tablet PO (10:36)
[2021-05-30 10:56] LABS: Bedside Glucose 233 mg/dL (70-110)
--- NOTE | 2021-05-30 11:07 | CASEMGMT ---
Social Work SW placed call to to pt dgt Erika to discuss insurance coverage. Erika states she submitted paper work and payment to COBRA yesterday and spoke to the COBRA auto servicer who states [employer] will be retroactive to 04/23/21 and that pt's previous employer, [employer], will need to reinstate pt on insurance. ABDOUL requested Erika call [employer] to see if this has been done as we need to know when [employer] will be active. Erika agreeable. ABDOUL discussed SNF options with Erika and informed her of area SNFs that are in network with [employer]. Erika's states her first choice is [facility] and second choice is [facility] but is understanding pt has choice of SNF. ABDOUL then met with pt and updated on progress with COBRA and insurance and discussed SNF placement. Pt in agreement with same provider choice as her dgt. VM left for Kim in TCU to discuss possible admission to TCU. ABDOUL will await return call. WHITNEY You
--- NOTE | 2021-05-30 11:53 | PN.HOSP_ITS ---
Objective Data Objective Data Vital Signs: Vital Signs Temp Pulse Resp BP Pulse Ox 98.8 F 85 16 100/55 L 93 05/30/21 08:00 05/30/21 08:00 05/30/21 08:00 05/30/21 08:00 05/30/21 09:52 Oxygen Flow Rate (L/min) 2 Oxygen Delivery Method Room Air Weight: 89 kg Body Mass Index (BMI) 29.2 Intake & Output: Intake and Output for Last 24 Hours 05/28/21 05/29/21 05/30/21 23:59 23:59 23:59 Intake Total 1388 / 1388 2195.25 / 2195.25 419 / 419 Output Total 0 / 0 Balance 1388 / 1388 2195.25 / 2195.25 419 / 419 Lab / Micro Data Result Diagrams: 05/30/21 06:23 05/30/21 06:23 Labs: Laboratory Results - last 24 hr 05/29/21 11:39: POC Glucose 293 H 05/29/21 16:21: POC Glucose 319 H 05/29/21 20:59: POC Glucose 259 H 05/29/21 23:30: POC Glucose 267 H 05/30/21 05:59: POC Glucose 166 H 05/30/21 06:23: WBC 18.8 H, RBC 2.61 L, Hgb 7.9 L, Hct 25.1 L, MCV 96.2, MCH 30.3, MCHC 31.5 L, RDW Std Deviation 52.1 H, RDW Coeff of Amos 15.5 H, Plt Count 553 H, MPV 9.6, Immature Gran % (Auto) 4.400 H, Neut % (Auto) 74.5 H, Lymph % (Auto) 14.9 L, [place] % (Auto) 3.9, Eos % (Auto) 1.6, Baso % (Auto) 0.7, Absolute Neuts (auto) 14.0 H, Absolute Lymphs (auto) 2.81, Nucleated RBC % 0 05/30/21 06:23: Sodium 140, Potassium 3.7, Chloride 106, Carbon Dioxide 30.0, Anion Gap 4 L, BUN 14, Creatinine 1.04 H, Estim Creat Clear Calc 60.93, Est GFR (MDRD) Af Amer 70, Est GFR (MDRD) Non-Af 58 L, BUN/Creatinine Ratio 13.5, Glucose 177 H, Calcium 9.6 05/30/21 10:42: POC Glucose 233 H Micro: Microbiology 05/28/21 12:47 Blood Culture (Wb) - Left Wrist Blood Culture - Preliminary No growth in 48 hours. 05/28/21 Unknown Wound - Leg, Right Gram Stain - Final 05/28/21 Unknown Wound - Leg, Right Wound Culture - Preliminary Staphylococcus aureus 05/27/21 10:00 Blood Culture (Wb) - Left Hand Blood Culture - Preliminary No growth in 48 hours. 05/21/21 19:00 Wound Abcess - Right Foot Gram Stain - Final 05/21/21 19:00 Wound Abcess - Right Foot Wound Culture - Final Meth. resistant Staph. aureus 05/21/21 19:00 Wound Abcess - Right Foot Anaerobic Culture - Final No anaerobic bacteria isolated. 05/23/21 18:30 Tissue - Right Foot Gram Stain - Final 05/23/21 18:30 Tissue - Right Foot Wound Culture - Final Meth. resistant Staph. aureus 05/23/21 18:30 Tissue - Right Foot Anaerobic Culture - Final No anaerobic bacteria isolated. 05/20/21 19:23 Blood Culture (Wb) - Left Wrist Blood Culture - Final Staphylococcus aureus 05/20/21 19:00 Blood Culture (Wb) - Right Hand Bacteria Detection (PCR) - Final Meth. resistant Staph. aureus 05/20/21 19:00 Blood Culture (Wb) - Right Hand Blood Culture - Final Meth. resistant Staph. aureus 05/21/21 00:05 Wound - Toe Gram Stain - Final 05/21/21 00:05 Wound - Toe Wound Culture - Final Meth. resistant Staph. aureus Enterococcus faecalis
--- NOTE | 2021-05-30 12:38 | PN.HOSP_ITS ---
Documented by User: Masood RUBIO 05/30/21 12:42 Subjective Subjective Patient is a 55-year-old female comfortably resting in bed, alert and orient x3. Patient denies any development of any new symptoms overnight. Does not appear in acute distress. Objective Data Objective Data Vital Signs: Vital Signs Temp Pulse Resp BP Pulse Ox 98.8 F 85 16 100/55 L 93 05/30/21 08:00 05/30/21 08:00 05/30/21 08:00 05/30/21 08:00 05/30/21 09:52 Oxygen Flow Rate (L/min) 2 Oxygen Delivery Method Room Air Weight: 196 lb 3.382 oz Body Mass Index (BMI) 29.2 Intake & Output: Intake and Output for Last 24 Hours 05/28/21 05/29/21 05/30/21 23:59 23:59 23:59 Intake Total 1388 / 1388 2195.25 / 2195.25 419 / 419 Output Total 0 / 0 Balance 1388 / 1388 2195.25 / 2195.25 419 / 419 Lab / Micro Data Result Diagrams: 05/30/21 06:23 05/30/21 06:23 Labs: Laboratory Results - last 24 hr 05/29/21 16:21: POC Glucose 319 H 05/29/21 20:59: POC Glucose 259 H 05/29/21 23:30: POC Glucose 267 H 05/30/21 05:59: POC Glucose 166 H 05/30/21 06:23: WBC 18.8 H, RBC 2.61 L, Hgb 7.9 L, Hct 25.1 L, MCV 96.2, MCH 30.3, MCHC 31.5 L, RDW Std Deviation 52.1 H, RDW Coeff of Amos 15.5 H, Plt Count 553 H, MPV 9.6, Immature Gran % (Auto) 4.400 H, Neut % (Auto) 74.5 H, Lymph % (Auto) 14.9 L, [place] % (Auto) 3.9, Eos % (Auto) 1.6, Baso % (Auto) 0.7, Absolute Neuts (auto) 14.0 H, Absolute Lymphs (auto) 2.81, Nucleated RBC % 0 05/30/21 06:23: Sodium 140, Potassium 3.7, Chloride 106, Carbon Dioxide 30.0, Anion Gap 4 L, BUN 14, Creatinine 1.04 H, Estim Creat Clear Calc 60.93, Est GFR (MDRD) Af Amer 70, Est GFR (MDRD) Non-Af 58 L, BUN/Creatinine Ratio 13.5, Glu cose 177 H, Calcium 9.6 05/30/21 10:42: POC Glucose 233 H Micro: Microbiology 05/28/21 12:47 Blood Culture (Wb) - Left Wrist Blood Culture - Preliminary No growth in 48 hours. 05/28/21 Unknown Wound - Leg, Right Gram Stain - Final 05/28/21 Unknown Wound - Leg, Right Wound Culture - Preliminary Staphylococcus aureus 05/27/21 10:00 Blood Culture (Wb) - Left Hand Blood Culture - Preliminary No growth in 48 hours. 05/21/21 19:00 Wound Abcess - Right Foot Gram Stain - Final 05/21/21 19:00 Wound Abcess - Right Foot Wound Culture - Final Meth. resistant Staph. aureus 05/21/21 19:00 Wound Abcess - Right Foot Anaerobic Culture - Final No anaerobic bacteria isolated. 05/23/21 18:30 Tissue - Right Foot Gram Stain - Final 05/23/21 18:30 Tissue - Right Foot Wound Culture - Final Meth. resistant Staph. aureus 05/23/21 18:30 Tissue - Right Foot Anaerobic Culture - Final No anaerobic bacteria isolated. 05/20/21 19:23 Blood Culture (Wb) - Left Wrist Blood Culture - Final Staphylococcus aureus 05/20/21 19:00 Blood Culture (Wb) - Right Hand Bacteria Detection (PCR) - Final Meth. resistant Staph. aureus 05/20/21 19:00 Blood Culture (Wb) - Right Hand Blood Culture - Final Meth. resistant Staph. aureus 05/21/21 00:05 Wound - Toe Gram Stain - Final 05/21/21 00:05 Wound - Toe Wound Culture - Final Meth. resistant Staph. aureus Enterococcus faecalis Physical Exam Const alert, oriented x3 and no apparent distress HEENT head/scalp atraumatic and moist oral mucous membranes Head and Scalp: normocephalic Eyes PERRL, EOMs intact bilaterally and conjunctivae normal Neck no lymphadenopathy, supple and no JVD Resp normal respiratory effort, no retractions, no use of accessory muscles and clear to auscultation bilaterally Cardio regular rate, regular rhythm, no murmurs and no JVD GI normal to inspection, nondistended, normoactive bowel sounds, soft to palpation and non-tender Extremity normal to inspection, full ROM and no clubbing, cyanosis or edema Skin no rashes or lesions noted, no wounds and skin turgor normal Neuro CN's II-XII intact bilaterally Psych affect normal Assessment & Plan Assessment/Plan (1) Infectious tenosynovitis: (2) Cellulitis of right lower limb: (3) MRSA bacteremia: (4) Acute osteomyelitis of left foot: (5) Charcot's joint of right foot: PLAN: Day 10 Discharge planning: Discharge to SNF pending insurance approval. CM/SW following. 1 ) Acute osteomyelitis of right foot POD 2 status post debridement and I&D including fasciotomy of the right leg. ID and podiatry following. Patient denies any acute symptoms of the right foot. Vancomycin reinitiated. 2.) Diabetes mellitus type 2 Continue scheduled Lantus as well as ACHS blood sugars with sliding scale insulin DVT prophylaxis- Lovenox Patient seen by Masood Townsend PA-C, under the supervision of Dr. Bowman. Time spent on patient care: 9 minutes. Documented by User: Dr. Beatrice Bowman MD 05/30/21 16:47 Objective Data Lab / Micro Data Result Diagrams: 05/30/21 06:23 05/30/21 06:23 Charges/Coding Addendum Addendum: This patient was seen in conjunction with RAMIRO White. I have independently interviewed and examined the patient and reviewed pertinent historical, laboratory, and other data. I have reviewed her note and concur with her documentation Patient was seen and examined. No acute events overnight. Her pain is fairly controlled. She denied any fever or chills. She was transfused 1 unit of blood yesterday. Vitals: emp Pulse Resp BP Pulse Ox 98.8 F 85 16 100/55 L 93 Physical exam: General: Alert, Oriented x3, Cooperative, No apparent distress, Well developed HEENT: Atraumatic Oral: Moist Mucosa Neck: Supple Lungs: Clear to auscultation Cardiovascular: HS I+II, regular, no murmurs Abdomen: Bowel Sounds Present, Soft, Non Tender Extremities: Right foot in dressing/Sebastian wrap, able to wiggle Labs: WBC count is 18.8, hemoglobin 7.9, platelet count 553 Sodium 140, potassium 3. 7, chloride 106, carbonate 30, BUN 14, creatinine 1.04, glucose 177 Micro: Repeat blood cultures are pending Wound cultures from 05/23 shows MRSA, acid-fast bacilli smear and fungal cultures are pending Blood cultures on 05/20/21 shows MRSA A/P: 1. Acute DKA secondary to noncompliance with medications, resolved Blood sugars is better controlled; HbA1c is 11.4 Continue on 50 units of Lantus nightly as well as insulin sliding scale with Accu-Cheks ACHS 2. Acute diabetic foot wound with cellulitis of the right lower extremity, concerning for possible acute osteomyelitis Status post wound debridement x2 by podiatry Wound cultures growing MRSA and Enterococcus faecalis Previous MRI of the foot showed mild acute on chronic osteomyelitis of the second and third metatarsal bones, surrounded by fluid and small 2 x 2 fluid collection in the subcutaneous tissue about the dorsum and base of the proximal phalanx of the great toe. Large collection above the dorsal of the midfoot Repeat MRI of the leg and foot on 05/26/21 shows infectious myositis and superficial abscesses of the extensor compartment of the lower leg, osteomyeli tis of the right cuboid bone. ID following. 3. MRSA bacteremia, repeat blood cultures pending, continue on IV vancomycin 4. Acute on chronic anemia, likely secondary to blood loss anemia, Hemoglobin today is 7.9 Status post 1 unit of pRBC Started on IV Venofer on 05/29/21 5. Hypokalemia, resolved 6. Rest of her chronic medical conditions remained stable 7. DVT prophylaxis with Lovenox subcu Visit Charges Inpatient E&M: 04756 Subs Hosp L2
--- NOTE | 2021-05-30 12:42 | PN.ID_ITS ---
Physical Exam Narrative No fever, resting comfortably Const no apparent distress Resp normal air movement and clear to auscultation bilaterally Cardio regular rate and regular rhythm GI soft to palpation, non-tender and non-distended Skin Skin Narrative: reviewed photos ID ID: Route of nutrition/ use of supplements: [] Nutritional Intake: [] IV Site: [] Pink Catheter: [] Assessment & Plan Assessment/Plan (1) Diabetes mellitus with diabetic polyneuropathy: QUALIFIERS: Diabetes mellitus type: type 2 Diabetes mellitus usp insulin use: without computer terminal operator use Qualified Code(s): E11.42 - Type 2 diabetes mellitus with diabetic polyneuropathy (2) Abscess of foot: (3) MRSA bacteremia: PLAN: MRSA bacteremia with R lower leg osteo, abscesses. Imaging shows hardware in place. On iv vanc. TTE showed no veg. Repeat bcx neg at over 48h. Is covid vaccinated x3. Plan will be for 6 weeks iv abx. Taken back to OR 05/[address] Gonzalez, large amount of pus drained. Stop date for vanc is 07/08/21 with weekly labs, will order picc. ID followup in 2 weeks. Will follow, d/w Dr. Gonzalez and case finishing machine adjuster, wrote rx
[2021-05-30 17:20] LABS: Bedside Glucose 154 mg/dL (70-110)
--- NOTE | 2021-05-30 17:37 | CASEMGMT ---
[facility] accept. ABDOUL spoke with Pt and dgt and next SNF choice is [facility] and then [facility]. Loulou at [facility] states they will review referral. Referral faxed. ABDOUL to continue to follow. WHITNEY You
[2021-05-30 22:25] LABS: Bedside Glucose 233 mg/dL (70-110)
[2021-05-30] MEDS: 0.9% Saline Lock 10 ML Syringe IV (22:30)
[2021-05-31] VITALS (8 sets, daily range): BP systolic 118–130; BP diastolic 68–84; PULSE 78–94; RESP 16–18; TEMP 36.6–37; O2SAT 93–96
[2021-05-31 04:26] LABS: Vancomycin, Trough Level 26.9 ug/mL (5.0-15.0)
--- NOTE | 2021-05-31 04:41 | PHA.PHARE_ITS ---
Consult Pharmacy has been consulted to manage selected antiobiotic: Vancomycin Type of Consult: Follow-up Suspected Infection: Skin/Soft tissue Prior Doses of Antibiotics Received/Current Regimen: Medications Vancomycin HCl 1,250 mg/ (Sodium Chloride) 275 mls @ 167 mls/hr IV Q12H ORTIZ Last Admin: 05/31/21 04:31 Dose: Not Given Labs: Sodium 140 mmol/L (136-145) 05/30/21 06:23 Potassium 3.7 mmol/L (3.5-5.1) 05/30/21 06:23 Chloride 106 mmol/L (98-107) 05/30/21 06:23 Carbon Dioxide 30.0 mmol/L (21.0-32.0) 05/30/21 06:23 Anion Gap 4 (5-15) L 05/30/21 06:23 BUN 14 mg/dL (7-18) 05/30/21 06:23 Creatinine 1.04 mg/dL (0.55-1.02) H 05/30/21 06:23 Est GFR (MDRD) Af Amer 70 mL/min (>60) 05/30/21 06:23 Est GFR (MDRD) Non-Af 58 mL/min (>60) L 05/30/21 06:23 BUN/Creatinine Ratio 13.5 RATIO (10-20) 05/30/21 06:23 Glucose 177 mg/dL (74-106) H 05/30/21 06:23 Vancomycin Trough 26.9 ug/mL (5.0-15.0) H 05/31/21 03:33 Random Vancomycin 19.3 ug/mL (0.0-15.0) H 05/29/21 09:50 Microbiology: Microbiology 05/30/21 18:45 Stool Stool Occult Blood (ZORAIDA) - Final 05/28/21 12:47 Blood Culture (Wb) - Left Wrist Blood Culture - Preliminary No growth in 48 hours. 05/28/21 Unknown Wound - Leg, Right Gram Stain - Final 05/28/21 Unknown Wound - Leg, Right Wound Culture - Preliminary Staphylococcus aureus 05/27/21 10:00 Blood Culture (Wb) - Left Hand Blood Culture - Preliminary No growth in 48 hours. 05/21/21 19:00 Wound Abcess - Right Foot Gram Stain - Final 05/21/21 19:00 Wound Abcess - Right Foot Wound Culture - Final Meth. resistant Staph. aureus 05/21/21 19:00 Wound Abcess - Right Foot Anaerobic Culture - Final No anaerobic bacteria isolated. 05/23/21 18:30 Tissue - Right Foot Gram Stain - Final 05/23/21 18:30 Tissue - Right Foot Wound Culture - Final Meth. resistant Staph. aureus 05/23/21 18:30 Tissue - Right Foot Anaerobic Culture - Final No anaerobic bacteria isolated. 05/20/21 19:23 Blood Culture (Wb) - Left Wrist Blood Culture - Final Staphylococcus aureus 05/20/21 19:00 Blood Culture (Wb) - Right Hand Bacteria Detection (PCR) - Final Meth. resistant Staph. aureus 05/20/21 19:00 Blood Culture (Wb) - Right Hand Blood Culture - Final Meth. resistant Staph. aureus 05/21/21 00:05 Wound - Toe Gram Stain - Final 05/21/21 00:05 Wound - Toe Wound Culture - Final Meth. resistant Staph. aureus Enterococcus faecalis Weight used for dosin kg Estimated Creatinine Clearance: 70.5 Goal Trough: 15-20 mcg/mL Pharmacy Plan for Drug Dosing: Vancomycin trough level was high at 26.9, owing certainly to the concomitant increase in SCr. It was a 12 hour level. The 05/31/21 0400 dose was held and the current order was discontinued. Will draw a random level in 12 hours and re- calculate continuing dosage from that result. Pharmacy Service will continue to monitor and adjust dosing as required. Follow-Up Labs: Trough Vancomycin - random Labs to be done on [date and time ordered]: 05/31/21 @1530 - random level
[2021-05-31 07:06] LABS: Bedside Glucose 79 mg/dL (70-110)
[2021-05-31] MEDS: Baclofen 10 MG Tablet PO ×3 (08:46→17:48)
[2021-05-31 09:05] LABS: Absolute Lymphocyte Count 2.44 X10^3/uL (0.83-4.51); Absolute Neutrophil Count 13.7 X10^3/uL (2.0-7.7); Basophil# 0.16 X10^3/uL; Basophil% 0.9 % (0-1); Eosinophil# 0.15 X10^3/uL; Eosinophils% 0.8 % (0-5); Hematocrit 27.9 % (37-47); Hemoglobin 8.8 g/dL (12.0-15.0); Lymphocyte # 2.44 X10^3/ul (0.83-4.51); Lymphocyte % 13.7 % (19-41); Mean Corp Hgb Conc 31.5 g/dL (32-36); Mean Corpuscular Hgb 30.3 pg (27.0-32.0); Mean Corpuscular Volume 96.2 fL (81-99); Mean Platelet Vol. 8.8 fl (6.2-12.0); Monocyte% 3.4 % (0-10); NRBC Flagged by Analyzer 0 % (0-5); Neutrophil # 13.65 X10^3/uL (2.7-7.7); Neutrophil % 76.9 % (47-70); Platelet Count 639 K/mm3 (150-450); RBC Distribution Width CV 15.5 % (11.6-14.6); RBC Distribution Width SD 52.2 fl (35.1-43.9); White Blood Count 17.8 K/mm3 (4.4-11.0)
[2021-05-31 09:20] LABS: Anion Gap 6 (5-15); BUN 15 mg/dL (7-18); BUN/Creat Ratio 14.9 RATIO (10-20); Calcium,Total 10.4 mg/dL (8.5-10.1); Chloride 108 mmol/L (98-107); Creatinine, Serum 1.01 mg/dL (0.55-1.02); EST Glomerular Filtration Rate 60 mL/min (>60); Est Glom Filt Rate - Afr Amer 73 mL/min (>60); Estimated Creatinine Clearance 62.74 ml/min; Glucose 90 mg/dL (74-106); Magnesium 2.1 mg/dL (1.6-2.6); Potassium 3.6 mmol/L (3.5-5.1); Sodium Level 143 mmol/L (136-145)
[2021-05-31] MEDS: Menthol/Lanolin/Calamine/Znox 113 GM Tube 1 APPLIC TOPICAL ×2 (10:14→21:38)
[2021-05-31] MEDS: Clotrimazole 1 APPLIC Tube TOPICAL ×2 (10:15→21:41)
[2021-05-31] MEDS: Morphine 2 MG/ML Syringe IV (10:16)
[2021-05-31] MEDS: Enoxaparin 30 MG/0.3 ML Syringe SC ×2 (10:17→21:41)
[2021-05-31] MEDS: DAKIN'S SOL HALF STRENGTH (=0.25%) 1 APPLIC TOPICAL (10:18)
[2021-05-31] MEDS: Montelukast 10 MG Tablet PO (10:18)
[2021-05-31] MEDS: Levothyroxine 150 MCG Tablet PO (10:18)
[2021-05-31 11:21] LABS: Bedside Glucose 180 mg/dL (70-110)
[2021-05-31] MEDS: Ondansetron 4 MG/2 ML Vial IV (11:45)
[2021-05-31] MEDS: 0.9% Saline Lock 10 ML Syringe IV (11:45)
--- NOTE | 2021-05-31 12:12 | PCM.PN.HOSP ---
Documented by User: Masood RUBIO 05/31/21 12:17 Subjective Subjective Patient is a 55-year-old female comfortably resting in bed, alert and orient x3. Patient denies development of any new symptoms overnight. Does not appear in acute distress. Objective Data Objective Data Vital Signs: Vital Signs Temp Pulse Resp BP Pulse Ox 98.1 F 85 16 118/68 93 05/31/21 08:44 05/31/21 08:44 05/31/21 08:44 05/31/21 08:44 05/31/21 08:44 Oxygen Flow Rate (L/min) 2 Oxygen Delivery Method Room Air Weight: 186 lb 6.4 oz Body Mass Index (BMI) 29.2 Intake & Output: Intake and Output for Last 24 Hours 05/29/21 05/30/21 05/31/21 23:59 23:59 23:59 Intake Total 2195.25 / 2195.25 971.50 / 971.50 Output Total 0 / 0 Balance 2195.25 / 2195.25 971.50 / 971.50 Lab / Micro Data Result Diagrams: 05/31/21 08:50 05/31/21 08:50 Labs: Laboratory Results - last 24 hr 05/30/21 17:04: POC Glucose 154 H 05/30/21 22:09: POC Glucose 233 H 05/31/21 03:33: Vancomycin Trough 26.9 H 05/31/21 06:55: POC Glucose 79 05/31/21 08:50: WBC 17.8 H, RBC 2.90 L, Hgb 8.8 L, Hct 27.9 L, MCV 96.2, MCH 30.3, MCHC 31.5 L, RDW Std Deviation 52.2 H, RDW Coeff of Amos 15.5 H, Plt Count 639 H, MPV 8.8, Immature Gran % (Auto) 4.300 H, Neut % (Auto) 76.9 H, Lymph % (Auto) 13.7 L, [place] % (Auto) 3.4, Eos % (Auto) 0.8, Baso % (Auto) 0.9, Absolute Neuts (auto) 13.7 H, Absolute Lymphs (auto) 2.44, Nucleated RBC % 0 05/31/21 08:50: Sodium 143, Potassium 3.6, Chloride 108 H, Carbon Dioxide 29.0, Anion Gap 6, BUN 15, Creatinine 1.01, Estim Creat Clear Calc 62.74, Est GFR (MDRD) Af Amer 73, Est GFR (MDRD) Non-Af 60, BUN/Creatinine Ratio 14.9, Glucose 90, Calcium 10.4 H, Magnesium 2.1 05/31/21 11:15: POC Glucose 180 H Micro: Microbiology 05/28/21 Unknown Wound - Leg, Right Gram Stain - Final 05/28/21 Unknown Wound - Leg, Right Wound Culture - Final Meth. resistant Staph. aureus 05/28/21 Unknown Wound - Leg, Right Anaerobic Culture - Final No anaerobic bacteria isolated. 05/30/21 18:45 Stool Stool Occult Blood (ZORAIDA) - Final 05/28/21 12:47 Blood Culture (Wb) - Left Wrist Blood Culture - Preliminary No growth in 48 hours. 05/27/21 10:00 Blood Culture (Wb) - Left Hand Blood Culture - Preliminary No growth in 48 hours. 05/21/21 19:00 Wound Abcess - Right Foot Gram Stain - Final 05/21/21 19:00 Wound Abcess - Right Foot Wound Culture - Final Meth. resistant Staph. aureus 05/21/21 19:00 Wound Abcess - Right Foot Anaerobic Culture - Final No anaerobic bacteria isolated. 05/23/21 18:30 Tissue - Right Foot Gram Stain - Final 05/23/21 18:30 Tissue - Right Foot Wound Culture - Final Meth. resistant Staph. aureus 05/23/21 18:30 Tissue - Right Foot Anaerobic Culture - Final No anaerobic bacteria isolated. 05/20/21 19:23 Blood Culture (Wb) - Left Wrist Blood Culture - Final Staphylococcus aureus 05/20/21 19:00 Blood Culture (Wb) - Right Hand Bacteria Detection (PCR) - Final Meth. resistant Staph. aureus 05/20/21 19:00 Blood Culture (Wb) - Right Hand Blood Culture - Final Meth. resistant Staph. aureus 05/21/21 00:05 Wound - Toe Gram Stain - Final 05/21/21 00:05 Wound - Toe Wound Culture - Final Meth. resistant Staph. aureus Enterococcus faecalis Physical Exam Const alert, oriented x3 and no apparent distress HEENT head/scalp atraumatic and moist oral mucous membranes Head and Scalp: normocephalic Eyes PERRL, EOMs intact bilaterally and conjunctivae normal Neck no lymphadenopathy, supple and no JVD Resp normal respiratory effort, no retractions, no use of accessory muscles and clear to auscultation bilaterally Cardio regular rate, regular rhythm, no murmurs and no JVD GI normal to inspection, nondistended, normoactive bowel sounds, soft to palpation and non-tender Extremity normal to inspection, full ROM and no clubbing, cyanosis or edema Skin Skin Narrative: Right lower extremity is appropriately dressed and bandaged. No purulence, odor, erythema or streaking noted. Neuro CN's II-XII intact bilaterally Psych affect normal Assessment & Plan Assessment/Plan (1) Infectious tenosynovitis: (2) Cellulitis of right lower limb: (3) MRSA bacteremia: (4) Acute osteomyelitis of left foot: PLAN: Day 10 Discharge planning: Discharge to [facility] or [facility] pending insurance approval. /SW following. 1 ) Acute osteomyelitis of right foot POD 3 status post debridement and I&D including fasciotomy of the right leg. ID and podiatry following. Patient denies any acute symptoms of the right foot. Continue Vancomycin, stop date is 07/08/2021. ID follow up 2 weeks after discharge. 2.) Diabetes mellitus type 2 Continue scheduled Lantus as well as ACHS blood sugars with sliding scale insulin DVT prophylaxis- Lovenox Patient seen by Masood Townsend PA-C, under the supervision of Dr. Bowman. Time spent on patient care: 7 minutes. Documented by User: Dr. Beatrice Bowman MD 05/31/21 16:45 Objective Data Lab / Micro Data Result Diagrams: 05/31/21 08:50 05/31/21 08:50 Charges/Coding Addendum Addendum: This patient was seen in conjunction with RAMIRO White. I have independently interviewed and examined the patient and reviewed pertinent historical, laboratory, and other data. I have reviewed her note and concur with her documentation Patient was seen and examined. No acute events overnight. She denies any new complaints. Waiting on discharge to long term facility Vitals: Temp Pulse Resp BP Pulse Ox 98.1 F 85 16 118/68 93 Physical exam: General: Alert, Oriented x3, Cooperative, No apparent distress, Well developed HEENT: Atraumatic Oral: Moist Mucosa Neck: Supple Lungs: Clear to auscultation Cardiovascular: HS I+II, regular, no murmurs Abdomen: Bowel Sounds Present, Soft, Non Tender Extremities: Right foot in dressing/Sebastian wrap, able to wiggle Labs: WBC count is 17.8, hemoglobin 8.8, platelet count 639 Sodium 143, potassium 3.6, chloride 108, carbonate 29, BUN 15, creatinine 1.01, glucose 90 Micro: Repeat blood cultures are pending Wound cultures from 05/23 shows MRSA, acid-fast bacilli smear and fungal cultures are pending Blood cultures on 05/20/21 shows MRSA A/P: 1. Acute DKA secondary to noncompliance with medications, resolved Blood sugars is better controlled; HbA1c is 11.4 Continue on 50 units of Lantus nightly as well as insulin sliding scale with Accu-Cheks ACHS 2. Acute diabetic foot wound with cellulitis of the right lower extremity, concerning for possible acute osteomyelitis Status post wound debridement x2 by podiatry Wound cultures growing MRSA and Enterococcus faecalis Previous MRI of the foot showed mild acute on chronic osteomyelitis of the second and third metatarsal bones, surrounded by fluid and small 2 x 2 fluid collection in the subcutaneous tissue about the dorsum and base of the proximal phalanx of the great toe. Large collection above the dorsal of the midfoot Repeat MRI of the leg and foot on 05/26/21 shows infectious myositis and superficial abscesses of the extensor compartment of the lower leg, osteomyelitis of the right cuboid bone. ID following. 3. MRSA bacteremia, repeat blood cultures pending, continue on IV vancomycin Patient will be on IV vancomycin for 6 weeks via PICC line. Stop date for vancomycin is 07/08/21. ID follow-up recommended in 2 weeks. 4. Acute on chronic anemia, likely secondary to blood loss anemia, Hemoglobin today is 8.8 Status post 1 unit of pRBC 5. Hypokalemia, resolved 6. Rest of her chronic medical conditions remained stable 7. DVT prophylaxis with Lovenox subcu Visit Charges Inpatient E&M: 85691 Subs Hosp L2
--- NOTE | 2021-05-31 13:11 | PN_ITS ---
Subjective Subjective This 55 year old female seen today s/p Incision and Drainage with removal of necrotic tissue. She is resting comfortably in bed with no complaints. She denies any fever, nausea, vomiting, chills, or shortness of breath. Objective Data Objective Data Vital Signs: Vital Signs Temp Pulse Resp BP Pulse Ox 98.1 F 85 16 118/68 93 05/31/21 08:44 05/31/21 08:44 05/31/21 08:44 05/31/21 08:44 05/31/21 08:44 Oxygen Flow Rate (L/min) 2 Oxygen Delivery Method Room Air Weight: 84.55 kg Body Mass Index (BMI) 29.2 Intake & Output: Intake and Output for Last 24 Hours 05/29/21 05/30/21 05/31/21 23:59 23:59 23:59 Intake Total 2195.25 / 2195.25 971.50 / 971.50 Output Total 0 / 0 Balance 2195.25 / 2195.25 971.50 / 971.50 Lab / Micro Data Result Diagrams: 05/31/21 08:50 05/31/21 08:50 Labs: Laboratory Results - last 24 hr 05/30/21 17:04: POC Glucose 154 H 05/30/21 22:09: POC Glucose 233 H 05/31/21 03:33: Vancomycin Trough 26.9 H 05/31/21 06:55: POC Glucose 79 05/31/21 08:50: WBC 17.8 H, RBC 2.90 L, Hgb 8.8 L, Hct 27.9 L, MCV 96.2, MCH 30.3, MCHC 31.5 L, RDW Std Deviation 52.2 H, RDW Coeff of Amos 15.5 H, Plt Count 639 H, MPV 8.8, Immature Gran % (Auto) 4.300 H, Neut % (Auto) 76.9 H, Lymph % (Auto) 13.7 L, [place] % (Auto) 3.4, Eos % (Auto) 0.8, Baso % (Auto) 0.9, Absolute Neuts (auto) 13.7 H, Absolute Lymphs (auto) 2.44, Nucleated RBC % 0 05/31/21 08:50: Sodium 143, Potassium 3.6, Chloride 108 H, Carbon Dioxide 29.0, Anion Gap 6, BUN 15, Creatinine 1.01, Estim Creat Clear Calc 62.74, Est GFR (MDRD) Af Amer 73, Est GFR (MDRD) Non-Af 60, BUN/Creatinine Ratio 14.9, Glucose 90, Calcium 10.4 H, Magnesium 2.1 05/31/21 11:15: POC Glucose 180 H Micro: Microbiology 05/28/21 Unknown Wound - Leg, Right Gram Stain - Final 05/28/21 Unknown Wound - Leg, Right Wound Culture - Final Meth. resistant Staph. aureus 05/28/21 Unknown Wound - Leg, Right Anaerobic Culture - Final No anaerobic bacteria isolated. 05/30/21 18:45 Stool Stool Occult Blood (ZORAIDA) - Final 05/28/21 12:47 Blood Culture (Wb) - Left Wrist Blood Culture - Preliminary No growth in 48 hours. 05/27/21 10:00 Blood Culture (Wb) - Left Hand Blood Culture - Preliminary No growth in 48 hours. 05/21/21 19:00 Wound Abcess - Right Foot Gram Stain - Final 05/21/21 19:00 Wound Abcess - Right Foot Wound Culture - Final Meth. resistant Staph. aureus 05/21/21 19:00 Wound Abcess - Right Foot Anaerobic Culture - Final No anaerobic bacteria isolated. 05/23/21 18:30 Tissue - Right Foot Gram Stain - Final 05/23/21 18:30 Tissue - Right Foot Wound Culture - Final Meth. resistant Staph. aureus 05/23/21 18:30 Tissue - Right Foot Anaerobic Culture - Final No anaerobic bacteria isolated. 05/20/21 19:23 Blood Culture (Wb) - Left Wrist Blood Culture - Final Staphylococcus aureus 05/20/21 19:00 Blood Culture (Wb) - Right Hand Bacteria Detection (PCR) - Final Meth. resistant Staph. aureus 05/20/21 19:00 Blood Culture (Wb) - Right Hand Blood Culture - Final Meth. resistant Staph. aureus 05/21/21 00:05 Wound - Toe Gram Stain - Final 05/21/21 00:05 Wound - Toe Wound Culture - Final Meth. resistant Staph. aureus Enterococcus faecalis Physical Exam Const alert and no apparent distress General Appearance: cooperative HEENT normocephalic Extremity normal capillary refill Extremity Narrative: no cyanosis, no calf tenderness palpable pulses muscle wasting noted. no tenderness. General Extremity: edema Skin Skin Narrative: Her skin is atrophic. Right lower extremity has multiple incision and drainage with debridement sites. There is no noa purulence on expression from the foot or leg. There is some devitalized tissue still noted at the most proximal aspect of the leg fasciotomy site which will continue to be monitored. Is noted there is exposed bone and tendon at all of the sites. The previously noted devitalized tendon, necrotic tissue and purulence remains resolved and there is healthy bleeding tissue. There is no additional palpable bogginess or fluctuance of the leg ankle or foot. There is both healthy and devitalized necrotic tissue noted at all sites also. The dorsal central inci kenya appears healthy without any purulence. There is no odor. Erythema resolved. No streaking or odor Neuro Neuro Narrative: lack of normal epicritic sensation via light touch consistent with neuropathy Assessment & Plan Assessment/Plan (1) MRSA bacteremia: (2) Cellulitis of right lower limb: (3) Infectious tenosynovitis: PLAN: Re-evaluation performed. s/p wide I+D debridement right foot and ankle from 05-23-21 and 05-28-21. Her vitals are stable and she remains afebrile. white blood cell count is still elevated at about 17.8, but trending down. There is no active bleeding from right lower extremity at this time. There is no noa purulence or erythema noted this morning. Blood cultures reviewed and noted to be positive for MRSA. Repeat cultures pending. Right foot wound culture has also been obtained and reviewed - noted MRSA and entercoccus. She is on IV antibiotics Vancomycin which she will continue. Infectious disease specialist intervention is reviewed and appreciated. Additional post debridement irrigation cultures from surgery are pending. Dressing changes: today applied clean, Dakin wet to dry gauze, kerlix, abd pads and verito dressing - change BID via dakin's wet to dry. No weightbearing right foot, keep foot elevated. She has significant improvement in tissue quality and reduced purulence since her staged revisional surgery 05-28-21. This will need to be monitored very close. D/C planning - Recommend nursing placement upon discharge for wound care, antibiotics, also will need to be nonweightbearing right foot. Medical management per hospitalist service is noted and appreciated. Continue anticoagulation medication. Podiatry will continue to follow. I answered all the patient's questions. Please do not hesitate to call if you have any questions. Jason Lewis, [facility] [phone]
[2021-05-31 16:15] LABS: Vancomycin, Random Level 18.7 ug/mL (0.0-15.0)
--- NOTE | 2021-05-31 16:32 | PCM.RX.CS ---
Consult Pharmacy has been consulted to manage selected antiobiotic: Vancomycin Type of Consult: Follow-up Suspected Infection: Osteomyelitis Labs: Sodium 143 mmol/L (136-145) 05/31/21 08:50 Potassium 3.6 mmol/L (3.5-5.1) 05/31/21 08:50 Chloride 108 mmol/L (98-107) H 05/31/21 08:50 Carbon Dioxide 29.0 mmol/L (21.0-32.0) 05/31/21 08:50 Anion Gap 6 (5-15) 05/31/21 08:50 BUN 15 mg/dL (7-18) 05/31/21 08:50 Creatinine 1.01 mg/dL (0.55-1.02) 05/31/21 08:50 Est GFR (MDRD) Af Amer 73 mL/min (>60) 05/31/21 08:50 Est GFR (MDRD) Non-Af 60 mL/min (>60) 05/31/21 08:50 BUN/Creatinine Ratio 14.9 RATIO (10-20) 05/31/21 08:50 Glucose 90 mg/dL (74-106) 05/31/21 08:50 Vancomycin Trough 26.9 ug/mL (5.0-15.0) H 05/31/21 03:33 Random Vancomycin 18.7 ug/mL (0.0-15.0) H 05/31/21 15:33 Microbiology: Microbiology 05/28/21 Unknown Wound - Leg, Right Gram Stain - Final 05/28/21 Unknown Wound - Leg, Right Wound Culture - Final Meth. resistant Staph. aureus 05/28/21 Unknown Wound - Leg, Right Anaerobic Culture - Final No anaerobic bacteria isolated. 05/30/21 18:45 Stool Stool Occult Blood (ZORAIDA) - Final 05/28/21 12:47 Blood Culture (Wb) - Left Wrist Blood Culture - Preliminary No growth in 48 hours. 05/27/21 10:00 Blood Culture (Wb) - Left Hand Blood Culture - Preliminary No growth in 48 hours. 05/21/21 19:00 Wound Abcess - Right Foot Gram Stain - Final 05/21/21 19:00 Wound Abcess - Right Foot Wound Culture - Final Meth. resistant Staph. aureus 05/21/21 19:00 Wound Abcess - Right Foot Anaerobic Culture - Final No anaerobic bacteria isolated. 05/23/21 18:30 Tissue - Right Foot Gram Stain - Final 05/23/21 18:30 Tissue - Right Foot Wound Culture - Final Meth. resistant Staph. aureus 05/23/21 18:30 Tissue - Right Foot Anaerobic Culture - Final No anaerobic bacteria isolated. 05/20/21 19:23 Blood Culture (Wb) - Left Wrist Blood Culture - Final Staphylococcus aureus 05/20/21 19:00 Blood Culture (Wb) - Right Hand Bacteria Detection (PCR) - Final Meth. resistant Staph. aureus 05/20/21 19:00 Blood Culture (Wb) - Right Hand Blood Culture - Final Meth. resistant Staph. aureus 05/21/21 00:05 Wound - Toe Gram Stain - Final 05/21/21 00:05 Wound - Toe Wound Culture - Final Meth. resistant Staph. aureus Enterococcus faecalis Goal Trough: 15-20 mcg/mL Pharmacy Plan for Drug Dosing: VANCOMYCIN LEVEL RECEIVED Current Vancomycin Dose: ON HOLD, LAST DOSE GIVEN 05/30 @ 1534 Number of Doses Received: MANY Vancomycin Level: 18.7 MG/DL Hours Since Last Dose: 24 Renal Function: SCR 1.01 MG/DL, CRCL 70.8 ML/MIN USING ADJ BW OF 72.1 KG Renal Function Trend: STABLE BUT INCREASED FROM 0.67 ON 05/29 Lab/Micro: MRSA IN WOUND Vancomycin Plan/Comments: LEVEL IS NOW WITHIN THERAPEUTIC RANGE 24 HOURS AFTER 1250MG DOSE. WILL RESTART VANCO AT 1250MG Q24 AND GET A TROUGH PRIOR TO 3RD DOSE. Pending Level: 06/02/21 @ 1630 Pharmacy Service will continue to monitor and adjust dosing as required.
[2021-05-31 16:56] LABS: Bedside Glucose 212 mg/dL (70-110)
[2021-05-31] MEDS: Insulin Lispro 100 UNIT/ML INSULN.PEN SC ×2 (18:03→21:40)
[2021-05-31 22:10] LABS: Bedside Glucose 167 mg/dL (70-110)
[2021-06-01] VITALS (10 sets, daily range): BP systolic 110–122; BP diastolic 60–78; PULSE 79–89; RESP 16–18; TEMP 36.8–37.1; O2SAT 94–97
[2021-06-01 04:56] LABS: Absolute Lymphocyte Count 2.68 X10^3/uL (0.83-4.51); Absolute Neutrophil Count 11.5 X10^3/uL (2.0-7.7); Basophil# 0.15 X10^3/uL; Eosinophil# 0.27 X10^3/uL; Eosinophils% 1.7 % (0-5); Hematocrit 26.3 % (37-47); Hemoglobin 8.2 g/dL (12.0-15.0); Lymphocyte # 2.68 X10^3/ul (0.83-4.51); Lymphocyte % 17.1 % (19-41); Mean Corp Hgb Conc 31.2 g/dL (32-36); Mean Corpuscular Hgb 30.3 pg (27.0-32.0); Monocyte# 0.61 X10^3/uL; Monocyte% 3.9 % (0-10); NRBC Flagged by Analyzer 0 % (0-5); Neutrophil # 11.54 X10^3/uL (2.7-7.7); Neutrophil % 73.4 % (47-70); Platelet Count 596 K/mm3 (150-450); RBC Distribution Width CV 15.4 % (11.6-14.6); RBC Distribution Width SD 51.8 fl (35.1-43.9); Red Blood Count 2.71 M/mm3 (4.2-5.4); White Blood Count 15.7 K/mm3 (4.4-11.0)
[2021-06-01 05:26] LABS: Anion Gap 7 (5-15); BUN 17 mg/dL (7-18); BUN/Creat Ratio 16.8 RATIO (10-20); Chloride 105 mmol/L (98-107); Creatinine, Serum 1.01 mg/dL (0.55-1.02); EST Glomerular Filtration Rate 60 mL/min (>60); Est Glom Filt Rate - Afr Amer 73 mL/min (>60); Estimated Creatinine Clearance 62.74 ml/min; Glucose 184 mg/dL (74-106); Potassium 3.8 mmol/L (3.5-5.1); Sodium Level 141 mmol/L (136-145)
[2021-06-01] MEDS: Insulin Lispro 100 UNIT/ML INSULN.PEN SC ×4 (06:02→21:33)
[2021-06-01 06:11] LABS: Bedside Glucose 155 mg/dL (70-110)
[2021-06-01] MEDS: Baclofen 10 MG Tablet PO ×3 (09:35→16:40)
[2021-06-01] MEDS: Enoxaparin 30 MG/0.3 ML Syringe SC ×2 (09:35→21:34)
[2021-06-01] MEDS: Levothyroxine 150 MCG Tablet PO (09:35)
[2021-06-01] MEDS: Montelukast 10 MG Tablet PO (09:35)
[2021-06-01] MEDS: DAKIN'S SOL HALF STRENGTH (=0.25%) 1 APPLIC TOPICAL ×2 (09:36→21:34)
[2021-06-01] MEDS: Clotrimazole 1 APPLIC Tube TOPICAL ×2 (09:36→21:35)
[2021-06-01] MEDS: Menthol/Lanolin/Calamine/Znox 113 GM Tube 1 APPLIC TOPICAL ×2 (09:37→21:35)
[2021-06-01 11:25] LABS: Bedside Glucose 179 mg/dL (70-110)
--- NOTE | 2021-06-01 12:11 | PCM.PN.HOSP ---
Documented by User: Masood RUBIO 06/01/21 12:17 Subjective Subjective Patient is a 55-year-old female comfortably resting in bed, alert and orient x3. Development of any new symptoms overnight. Does not appear in acute distress. Objective Data Objective Data Vital Signs: Vital Signs Temp Pulse Resp BP Pulse Ox 98.7 F 79 18 110/72 97 06/01/21 08:08 06/01/21 11:31 06/01/21 08:08 06/01/21 08:08 06/01/21 09:10 Oxygen Flow Rate (L/min) 2 Oxygen Delivery Method Room Air Weight: 185 lb 10.067 oz Body Mass Index (BMI) 29.2 Intake & Output: Intake and Output for Last 24 Hours 05/30/21 05/31/21 06/01/21 23:59 23:59 23:59 Intake Total 971.50 / 971.50 1055 / 1055 463 / 463 Output Total 500 / 500 Balance 971.50 / 971.50 1055 / 1055 -37 / -37 Lab / Micro Data Result Diagrams: 06/01/21 04:30 06/01/21 04:30 Labs: Laboratory Results - last 24 hr 05/31/21 15:33: Random Vancomycin 18.7 H 05/31/21 16:49: POC Glucose 212 H 05/31/21 21:37: POC Glucose 167 H 06/01/21 04:30: WBC 15.7 H, RBC 2.71 L, Hgb 8.2 L, Hct 26.3 L, MCV 97.0, MCH 30.3, MCHC 31.2 L, RDW Std Deviation 51.8 H, RDW Coeff of Amos 15.4 H, Plt Count 596 H, MPV 9.0, Immature Gran % (Auto) 2.900 H, Neut % (Auto) 73.4 H, Lymph % (Auto) 17.1 L, [place] % (Auto) 3.9, Eos % (Auto) 1.7, Baso % (Auto) 1.0, Absolute Neuts (auto) 11.5 H, Absolute Lymphs (auto) 2.68, Nucleated RBC % 0 06/01/21 04:30: Sodium 141, Potassium 3.8, Chloride 105, Carbon Dioxide 29.0, Anion Gap 7, BUN 17, Creatinine 1.01, Estim Creat Clear Calc 62.74, Est GFR (MDRD) Af Amer 73, Est GFR (MDRD) Non-Af 60, BUN/Creatinine Ratio 16.8, Glucose 184 H, Calcium 10.0 06/01/21 05:59: POC Glucose 155 H 06/01/21 11:23: POC Glucose 179 H Micro: Microbiology 05/27/21 10:00 Blood Culture (Wb) - Left Hand Blood Culture - Final No growth in 5 days. 05/28/21 Unknown Wound - Leg, Right Gram Stain - Final 05/28/21 Unknown Wound - Leg, Right Wound Culture - Final Meth. resistant Staph. aureus 05/28/21 Unknown Wound - Leg, Right Anaerobic Culture - Final No anaerobic bacteria isolated. 05/30/21 18:45 Stool Stool Occult Blood (ZORAIDA) - Final 05/28/21 12:47 Blood Culture (Wb) - Left Wrist Blood Culture - Preliminary No growth in 48 hours. 05/21/21 19:00 Wound Abcess - Right Foot Gram Stain - Final 05/21/21 19:00 Wound Abcess - Right Foot Wound Culture - Final Meth. resistant Staph. aureus 05/21/21 19:00 Wound Abcess - Right Foot Anaerobic Culture - Final No anaerobic bacteria isolated. 05/23/21 18:30 Tissue - Right Foot Gram Stain - Final 05/23/21 18:30 Tissue - Right Foot Wound Culture - Final Meth. resistant Staph. aureus 05/23/21 18:30 Tissue - Right Foot Anaerobic Culture - Final No anaerobic bacteria isolated. 05/20/21 19:23 Blood Culture (Wb) - Left Wrist Blood Culture - Final Staphylococcus aureus 05/20/21 19:00 Blood Culture (Wb) - Right Hand Bacteria Detection (PCR) - Final Meth. resistant Staph. aureus 05/20/21 19:00 Blood Culture (Wb) - Right Hand Blood Culture - Final Meth. resistant Staph. aureus 05/21/21 00:05 Wound - Toe Gram Stain - Final 05/21/21 00:05 Wound - Toe Wound Culture - Final Meth. resistant Staph. aureus Enterococcus faecalis Physical Exam Const alert, oriented x3 and no apparent distress HEENT head/scalp atraumatic and moist oral mucous membranes Head and Scalp: normocephalic Eyes PERRL, EOMs intact bilaterally and conjunctivae normal Neck no lymphadenopathy, supple and no JVD Resp normal respiratory effort, no retractions, no use of accessory muscles and clear to auscultation bilaterally Cardio regular rate, regular rhythm, no murmurs and no JVD GI normal to inspection, nondistended, normoactive bowel sounds, soft to palpation and non-tender Extremity Extremity Narrative: See skin. Skin Skin Narrative: Right lower extremity is appropriately dressed and bandaged. No purulence, odor, erythema or streaking noted. Neuro CN's II-XII intact bilaterally Psych affect normal Assessment & Plan Assessment/Plan (1) Infectious tenosynovitis: (2) Cellulitis of right lower limb: (3) MRSA bacteremia: PLAN: Day 11 Discharge planning: Discharge to [facility] or [facility] pending insurance approval. /SW following. 1 ) Acute osteomyelitis of right foot POD 4 status post debridement and I&D including fasciotomy of the right leg. ID and podiatry following. Patient denies any acute symptoms of the right foot. Continue Vancomycin, stop date is 07/08/2021. ID follow up 2 weeks after discharge. 2) Diabetes mellitus type 2 Continue scheduled Lantus as well as ACHS blood sugars with sliding scale insulin 3) acute on chronic iron deficiency anemia Hemoglobin currently 8.2, baseline appears between 9 and 10. Initiate oral iron, continue to monitor CBC. DVT prophylaxis- Lovenox Patient seen by Masood Townsend PA-C, under the supervision of Dr. Bowman. Time spent on patient care: 7 minutes. Documented by User: Dr. Beatrice Bowman MD 06/01/21 14:11 Objective Data Lab / Micro Data Result Diagrams: 06/01/21 04:30 06/01/21 04:30 Charges/Coding Addendum Addendum: This patient was seen in conjunction with RAMIRO White. I have independently interviewed and examined the patient and reviewed pertinent historical, laboratory, and other data. I have reviewed her note and concur with her documentation Patient was seen and examined. No acute events overnight. She denies any new complaints. Waiting on discharge to [facility] Vitals: Temp Pulse Resp BP Pulse Ox 98.1 F 85 16 118/68 93 Physical exam: General: Alert, Oriented x3, Cooperative, No apparent distress, Well developed HEENT: Atraumatic Oral: Moist Mucosa Neck: Supple Lungs: Clear to auscultation Cardiovascular: HS I+II, regular, no murmurs Abdomen: Bowel Sounds Present, Soft, Non Tender Extremities: Right foot in dressing/Sebastian wrap, able to wiggle Labs: WBC count is 17.8, hemoglobin 8.8, platelet count 639 Sodium 143, potassium 3.6, chloride 108, carbonate 29, BUN 15, creatinine 1.01, glucose 90 Micro: Repeat blood cultures are pending Wound cultures from 05/23 shows MRSA, acid-fast bacilli smear and fungal cultures are pending Blood cultures on 05/20/21 shows MRSA A/P: 1. Acute DKA secondary to noncompliance with medications, resolved Blood sugars is better controlled; HbA1c is 11.4 Continue on 50 units of Lantus nightly as well as insulin sliding scale with Accu-Cheks ACHS 2. Acute diabetic foot wound with cellulitis of the right lower extremity, concerning for possible acute osteomyelitis Status post wound debridement x3 by podiatry Wound cultures growing MRSA and Enterococcus faecalis Previous MRI of the foot showed mild acute on chronic osteomyelitis of the second and third metatarsal bones, surrounded by fluid and small 2 x 2 fluid collection in the subcutaneous tissue about the dorsum and base of the proximal phalanx of the great toe. Large collection above the dorsal of the midfoot Repeat MRI of the leg and foot on 05/26/21 shows infectious myositis and superficial abscesses of the extensor compartment of the lower leg, osteomyelitis of the right cuboid bone. ID following. Status post I&D 3. MRSA bacteremia, repeat blood cultures pending, continue on IV vancomycin Patient will be on IV vancomycin for 6 weeks via PICC line. Stop date for vancomycin is 07/08/21. ID follow-up recommended in 2 weeks. 4. Acute on chronic anemia, likely secondary to blood loss anemia, Hemoglobin today is 8.8 Status post 1 unit of pRBC 5. Hypokalemia, resolved 6. Rest of her chronic medical conditions remained stable 7. DVT prophylaxis with Lovenox subcu Disposition: Awaiting discharge to [facility] Time spent coordinating care, discussing with nursing, podiatry, discussing with social services/case management time: 19 mins Visit Charges Inpatient E&M: 11444 Subs Hosp L2
[2021-06-01] MEDS: Ferrous Sulfate 325 MG Tablet PO (12:45)
[2021-06-01] MEDS: Acetaminophen 325 MG Tablet 650 MG PO (12:45)
[2021-06-01] MEDS: oxyCODONE 5 MG Tablet PO (12:45)
--- NOTE | 2021-06-01 15:05 | NURSING ---
Patient incontinent of urine this AM, Complete bed change. Dressing change completed on RLE without any complications. Overall patient tolerated this well after medicated for pain.
[2021-06-01 17:10] LABS: Bedside Glucose 241 mg/dL (70-110)
[2021-06-01 21:50] LABS: Bedside Glucose 282 mg/dL (70-110)
[2021-06-02] VITALS (11 sets, daily range): BP systolic 111–127; BP diastolic 53–68; PULSE 66–94; RESP 16; TEMP 36.3–37.2; O2SAT 94–99
[2021-06-02 06:17] LABS: Absolute Lymphocyte Count 2.57 X10^3/uL (0.83-4.51); Absolute Neutrophil Count 11.6 X10^3/uL (2.0-7.7); Basophil# 0.13 X10^3/uL; Basophil% 0.8 % (0-1); Eosinophil# 0.33 X10^3/uL; Eosinophils% 2.1 % (0-5); Hematocrit 26.8 % (37-47); Hemoglobin 8.6 g/dL (12.0-15.0); Lymphocyte # 2.57 X10^3/ul (0.83-4.51); Lymphocyte % 16.6 % (19-41); Mean Corp Hgb Conc 32.1 g/dL (32-36); Mean Corpuscular Hgb 30.5 pg (27.0-32.0); Mean Platelet Vol. 8.9 fl (6.2-12.0); Monocyte# 0.56 X10^3/uL; Monocyte% 3.6 % (0-10); NRBC Flagged by Analyzer 0 % (0-5); Neutrophil # 11.57 X10^3/uL (2.7-7.7); Neutrophil % 74.6 % (47-70); Platelet Count 594 K/mm3 (150-450); RBC Distribution Width CV 15.4 % (11.6-14.6); RBC Distribution Width SD 51.8 fl (35.1-43.9); Red Blood Count 2.82 M/mm3 (4.2-5.4); White Blood Count 15.5 K/mm3 (4.4-11.0)
[2021-06-02 06:45] LABS: Bedside Glucose 142 mg/dL (70-110)
[2021-06-02 06:47] LABS: Anion Gap 8 (5-15); BUN 22 mg/dL (7-18); Calcium,Total 10.4 mg/dL (8.5-10.1); Chloride 103 mmol/L (98-107); Creatinine, Serum 1.16 mg/dL (0.55-1.02); EST Glomerular Filtration Rate 51 mL/min (>60); Est Glom Filt Rate - Afr Amer 62 mL/min (>60); Estimated Creatinine Clearance 54.63 ml/min; Glucose 143 mg/dL (74-106); Potassium 3.6 mmol/L (3.5-5.1); Sodium Level 140 mmol/L (136-145)
[2021-06-02] MEDS: Acetaminophen 325 MG Tablet 650 MG PO ×2 (07:15→23:01)
[2021-06-02] MEDS: oxyCODONE 5 MG Tablet PO ×2 (07:16→23:02)
--- NOTE | 2021-06-02 07:41 | PN_ITS ---
Subjective Subjective This 55 year old female seen today s/p Incision and Drainage with removal of necrotic tissue of the Right leg. She is resting comfortably in bed with no complaints. She denies any fever, nausea, vomiting, chills, or shortness of breath. Objective Data Objective Data Vital Signs: Vital Signs Temp Pulse Resp BP Pulse Ox 98.2 F 78 16 119/53 L 94 06/02/21 02:45 06/02/21 04:03 06/02/21 02:45 06/02/21 02:45 06/02/21 02:45 Oxygen Flow Rate (L/min) 2 Oxygen Delivery Method Room Air Weight: 83.6 kg Body Mass Index (BMI) 29.2 Intake & Output: Intake and Output for Last 24 Hours 05/31/21 06/01/21 06/02/21 23:59 23:59 23:59 Intake Total 1055 / 1055 1201 / 1301 100 / 100 Output Total 1000 / 1000 Balance 1055 / 1055 201 / 301 100 / 100 Lab / Micro Data Result Diagrams: 06/02/21 06:02 06/02/21 06:02 Labs: Laboratory Results - last 24 hr 06/01/21 11:23: POC Glucose 179 H 06/01/21 16:33: POC Glucose 241 H 06/01/21 21:28: POC Glucose 282 H 06/02/21 06:02: WBC 15.5 H, RBC 2.82 L, Hgb 8.6 L, Hct 26.8 L, MCV 95.0, MCH 30.5, MCHC 32.1, RDW Std Deviation 51.8 H, RDW Coeff of Amos 15.4 H, Plt Count 594 H, MPV 8.9, Immature Gran % (Auto) 2.300 H, Neut % (Auto) 74.6 H, Lymph % (Auto) 16.6 L, [place] % (Auto) 3.6, Eos % (Auto) 2.1, Baso % (Auto) 0.8, Absolute Neuts (auto) 11.6 H, Absolute Lymphs (auto) 2.57, Nucleated RBC % 0 06/02/21 06:02: Sodium 140, Potassium 3.6, Chloride 103, Carbon Dioxide 29.0, Anion Gap 8, BUN 22 H, Creatinine 1.16 H, Estim Creat Clear Calc 54.63, Est GFR (MDRD) Af Amer 62, Est GFR (MDRD) Non-Af 51 L, BUN/Creatinine Ratio 19.0, Glucose 143 H, Calcium 10.4 H 06/02/21 06:23: POC Glucose 142 H Micro: Microbiology 05/27/21 10:00 Blood Culture (Wb) - Left Hand Blood Culture - Final No growth in 5 days. 05/28/21 Unknown Wound - Leg, Right Gram Stain - Final 05/28/21 Unknown Wound - Leg, Right Wound Culture - Final Meth. resistant Staph. aureus 05/28/21 Unknown Wound - Leg, Right Anaerobic Culture - Final No anaerobic bacteria isolated. 05/30/21 18:45 Stool Stool Occult Blood (ZORAIDA) - Final 05/28/21 12:47 Blood Culture (Wb) - Left Wrist Blood Culture - Preliminary No growth in 48 hours. 05/21/21 19:00 Wound Abcess - Right Foot Gram Stain - Final 05/21/21 19:00 Wound Abcess - Right Foot Wound Culture - Final Meth. resistant Staph. aureus 05/21/21 19:00 Wound Abcess - Right Foot Anaerobic Culture - Final No anaerobic bacteria isolated. 05/23/21 18:30 Tissue - Right Foot Gram Stain - Final 05/23/21 18:30 Tissue - Right Foot Wound Culture - Final Meth. resistant Staph. aureus 05/23/21 18:30 Tissue - Right Foot Anaerobic Culture - Final No anaerobic bacteria isolated. 05/20/21 19:23 Blood Culture (Wb) - Left Wrist Blood Culture - Final Staphylococcus aureus 05/20/21 19:00 Blood Culture (Wb) - Right Hand Bacteria Detection (PCR) - Final Meth. resistant Staph. aureus 05/20/21 19:00 Blood Culture (Wb) - Right Hand Blood Culture - Final Meth. resistant Staph. aureus 05/21/21 00:05 Wound - Toe Gram Stain - Final 05/21/21 00:05 Wound - Toe Wound Culture - Final Meth. resistant Staph. aureus Enterococcus faecalis Physical Exam Const alert and no apparent distress General Appearance: cooperative HEENT normocephalic Extremity normal capillary refill Extremity Narrative: no cyanosis, no calf tenderness palpable pulses muscle wasting noted. no tenderness. General Extremity: edema Skin Skin Narrative: Her skin is atrophic. Right lower extremity has multiple incision and drainage with debridement sites. There is no noa purulence on expression from the foot or leg. There is some devitalized tissue still noted at the most proximal aspect of the leg fasciotomy site which will continue to be monitored. Is noted there is exposed bone and tendon at all of the sites. The previously noted devitalized tendon, necrotic tissue and purulence remains resolved and there is healthy bleeding tissue. There is no additional palpable bogginess or fluctuance of the leg ankle or foot. There is both healthy and devitalized necrotic tissue noted at all sites also. The dorsal central incision appears healthy without any purulence. There is no odor. Erythema resolved. No streaking or odor Neuro Neuro Narrative: lack of normal epicritic sensation via light touch consistent with neuropathy Assessment & Plan Assessment/Plan (1) MRSA bacteremia: (2) Cellulitis of right lower limb: (3) Infectious tenosynovitis: PLAN: Re-evaluation performed. s/p wide I+D debridement right foot and ankle from 05-23-21 and 05-28-21. Her vitals are stable and she remains afebrile. white blood cell count is still elevated at about 15.5, but trending down. There is no active bleeding from right lower extremity at this time. There is no noa purulence or erythema noted this morning. Blood cultures reviewed and noted to be positive for MRSA. Repeat cultures pending. Right foot wound culture has also been obtained and reviewed - noted MRSA and entercoccus. She is on IV antibiotics Vancomycin which she will continue. Infectious disease specialist intervention is reviewed and appreciated. Additional post debridement irrigation cultures from surgery are pending. Dressing changes: today applied clean, Dakin wet to dry gauze, kerlix, abd pads and verito dressing - change BID via dakin's wet to dry. No weightbearing right foot, keep foot elevated. She has significant improvement in tissue quality and reduced purulence since her staged revisional surgery 05-28-21. This will need to be monitored very close. D/C planning - Recommend nursing placement upon discharge for wound care, antibiotics, also will need to be nonweightbearing right foot. Medical management per hospitalist service is noted and appreciated. Continue anticoagulation medication. Podiatry will continue to follow. I answered all the patient's questions. Plealberto se do not hesitate to call if you have any questions. Jason Lewis DPM [facility] [phone]
[2021-06-02] MEDS: DAKIN'S SOL HALF STRENGTH (=0.25%) 1 APPLIC TOPICAL (08:17)
[2021-06-02] MEDS: Montelukast 10 MG Tablet PO (09:42)
[2021-06-02] MEDS: Baclofen 10 MG Tablet PO ×3 (09:42→17:22)
[2021-06-02] MEDS: Levothyroxine 150 MCG Tablet PO (09:42)
[2021-06-02] MEDS: Clotrimazole 1 APPLIC Tube TOPICAL ×2 (09:42→23:10)
[2021-06-02] MEDS: Enoxaparin 30 MG/0.3 ML Syringe SC ×2 (09:43→23:04)
[2021-06-02] MEDS: Menthol/Lanolin/Calamine/Znox 113 GM Tube 1 APPLIC TOPICAL ×2 (09:43→23:05)
--- NOTE | 2021-06-02 09:49 | WOUNDNOTE ---
wound photo: right lower leg/foot
--- NOTE | 2021-06-02 09:50 | WOUNDNOTE ---
wound photo: right lateral foot
--- NOTE | 2021-06-02 09:51 | WOUNDNOTE ---
wound photo: right medial foot
--- NOTE | 2021-06-02 11:08 | CASEMGMT ---
This BERTA TRUJILLO contacted [employer] event sales representative who states they were instructed by MAHENDRA to call [place] and have pt reinstated. This was completed with [place] reinstated with the same member ID number and benefits. Pt's previous [place] card is active and should be used for post-acute service needs. Ghada Verdin RN CM
--- NOTE | 2021-06-02 11:30 | CASEMGMT ---
Social Work ABDOUL spoke with Maintenance Dispatcher Penelope Verdin who placed call to pt former employer [employer] to discuss progress with COBRA coverage. Per [employer] HR, pt has been added on to [place] insurance and the card and number are the current card and number that can be used and pt should be active with [place]. ABODUL spoke with Loulou at [facility]. Pt denied admittance. ABDOUL spoke with Carmela at [facility] (pt second choice SNF) and they do have beds available. Referral faxed. SW explained [place] insurance coverage and faxed card. Also explained pt is ready for d/c and requested decision made as soon as possible and precert be started. VM to pt dgt to update. SW met with pt and updated on the above. ABDOUL will continue to follow for d/c planning. WHITNEY You
[2021-06-02 11:51] LABS: Bedside Glucose 127 mg/dL (70-110)
--- NOTE | 2021-06-02 11:59 | PCM.PN.HOSP ---
Documented by User: Masood RUBIO 06/02/21 12:02 Subjective Subjective Patient is a 55-year-old female comfortably resting in bed, alert and orient x3. Development of any new symptoms overnight. Does not appear in acute distress. Objective Data Objective Data Vital Signs: Vital Signs Temp Pulse Resp BP Pulse Ox 97.4 F L 66 16 111/64 99 06/02/21 09:35 06/02/21 09:35 06/02/21 09:35 06/02/21 09:35 06/02/21 09:35 Oxygen Flow Rate (L/min) 2 Oxygen Delivery Method Room Air Weight: 184 lb 4.903 oz Body Mass Index (BMI) 29.2 Intake & Output: Intake and Output for Last 24 Hours 05/31/21 06/01/21 06/02/21 23:59 23:59 23:59 Intake Total 1055 / 1055 1201 / 1301 100 / 100 Output Total 1000 / 1000 Balance 1055 / 1055 201 / 301 100 / 100 Lab / Micro Data Result Diagrams: 06/02/21 06:02 06/02/21 06:02 Labs: Laboratory Results - last 24 hr 06/01/21 16:33: POC Glucose 241 H 06/01/21 21:28: POC Glucose 282 H 06/02/21 06:02: WBC 15.5 H, RBC 2.82 L, Hgb 8.6 L, Hct 26.8 L, MCV 95.0, MCH 30.5, MCHC 32.1, RDW Std Deviation 51.8 H, RDW Coeff of Amos 15.4 H, Plt Count 594 H, MPV 8.9, Immature Gran % (Auto) 2.300 H, Neut % (Auto) 74.6 H, Lymph % (Auto) 16.6 L, [place] % (Auto) 3.6, Eos % (Auto) 2.1, Baso % (Auto) 0.8, Absolute Neuts (auto) 11.6 H, Absolute Lymphs (auto) 2.57, Nucleated RBC % 0 06/02/21 06:02: Sodium 140, Potassium 3.6, Chloride 103, Carbon Dioxide 29.0, Anion Gap 8, BUN 22 H, Creatinine 1.16 H, Estim Creat Clear Calc 54.63, Est GFR (MDRD) Af Amer 62, Est GFR (MDRD) Non-Af 51 L, BUN/Creatinine Ratio 19.0, Glucose 143 H, Calcium 10.4 H 06/02/21 06:23: POC Glucose 142 H 06/02/21 11:41: POC Glucose 127 H Micro: Microbiology 05/27/21 10:00 Blood Culture (Wb) - Left Hand Blood Culture - Final No growth in 5 days. 05/28/21 Unknown Wound - Leg, Right Gram Stain - Final 05/28/21 Unknown Wound - Leg, Right Wound Culture - Final Meth. resistant Staph. aureus 05/28/21 Unknown Wound - Leg, Right Anaerobic Culture - Final No anaerobic bacteria isolated. 05/30/21 18:45 Stool Stool Occult Blood (ZORAIDA) - Final 05/28/21 12:47 Blood Culture (Wb) - Left Wrist Blood Culture - Preliminary No growth in 48 hours. 05/21/21 19:00 Wound Abcess - Right Foot Gram Stain - Final 05/21/21 19:00 Wound Abcess - Right Foot Wound Culture - Final Meth. resistant Staph. aureus 05/21/21 19:00 Wound Abcess - Right Foot Anaerobic Culture - Final No anaerobic bacteria isolated. 05/23/21 18:30 Tissue - Right Foot Gram Stain - Final 05/23/21 18:30 Tissue - Right Foot Wound Culture - Final Meth. resistant Staph. aureus 05/23/21 18:30 Tissue - Right Foot Anaerobic Culture - Final No anaerobic bacteria isolated. 05/20/21 19:23 Blood Culture (Wb) - Left Wrist Blood Culture - Final Staphylococcus aureus 05/20/21 19:00 Blood Culture (Wb) - Right Hand Bacteria Detection (PCR) - Final Meth. resistant Staph. aureus 05/20/21 19:00 Blood Culture (Wb) - Right Hand Blood Culture - Final Meth. resistant Staph. aureus 05/21/21 00:05 Wound - Toe Gram Stain - Final 05/21/21 00:05 Wound - Toe Wound Culture - Final Meth. resistant Staph. aureus Enterococcus faecalis Physical Exam Const alert, oriented x3 and no apparent distress HEENT head/scalp atraumatic and moist oral mucous membranes Head and Scalp: normocephalic Eyes PERRL, EOMs intact bilaterally and conjunctivae normal Neck no lymphadenopathy, supple and no JVD Resp normal respiratory effort, no retractions and no use of accessory muscles Cardio regular rate, regular rhythm, no murmurs and no JVD GI normal to inspection, nondistended, normoactive bowel sounds, soft to palpation and non-tender Extremity Extremity Narrative: See skin. Skin Skin Narrative: Right lower extremity is appropriately dressed and bandaged. No purulence, odor, erythema or streaking noted. Neuro CN's II-XII intact bilaterally Psych affect normal Assessment & Plan Assessment/Plan (1) Infectious tenosynovitis: (2) Cellulitis of right lower limb: PLAN: Day 12 Discharge planning: Discharge to [facility] pending approval then [facility]. CM/SW following. 1 ) Acute osteomyelitis of right foot POD 5 status post debridement and I&D including fasciotomy of the right leg. ID and podiatry following. Patient denies any acute symptoms of the right foot. Continue Vancomycin, stop date is 07/08/2021. ID follow up 2 weeks after discharge. 2) Diabetes mellitus type 2 Continue scheduled Lantus as well as ACHS blood sugars with sliding scale insulin 3) acute on chronic iron deficiency anemia Hemoglobin currently 8.6, baseline appears between 9 and 10. Initiate oral iron, continue to monitor CBC. DVT prophylaxis- Lovenox Patient seen by Masood Townsend PA-C, under the supervision of Dr. Zavala. Time spent on patient care: 7 minutes. Documented by User: Dr. Danielle Zavala MD 06/02/21 16:16 Objective Data Lab / Micro Data Result Diagrams: 06/02/21 06:02 06/02/21 06:02 Charges/Coding Addendum Addendum: Patient seen by Masood Townsend PA-C under my supervision Patient seen and examined. She had no acute complaints. Patient has a very flat affect. Review of symptoms otherwise negative. She is awaiting placement. O/E; Const alert, oriented x3 and no apparent distress HEENT head/scalp atraumatic and moist oral mucous membranes Head and Scalp: normocephalic Eyes PERRL, EOMs intact bilaterally and conjunctivae normal Neck no lymphadenopathy, supple and no JVD Resp normal respiratory effort, no retractions and no use of accessory muscles Cardio regular rate, regular rhythm, no murmurs and no JVD GI normal to inspection, nondistended, normoactive bowel sounds, soft to palpation and non-tender Extremity Extremity Narrative: See skin. Skin Skin Narrative: Right lower extremity is appropriately dressed and bandaged. No purulence, odor, erythema or streaking noted. Neuro CN's II-XII intact bilaterally Psych affect normal Assessment and plan #osteomyelitis of the right foot s/p I&D, debridement and fasciotomy of the right foot. podiatry and ID on board on IV vancomycin. Blood cultures grew MRSA, as well as wound cultures. 2D echo was negative for any evidence of valvular vegetation stop date for vancomycin is 07/08/2021. wbc is 15.5. #MRSA bacteremia On vancomycin as above. Repeat blood cultures from 05/27/2021 showed no growth in 5 days in both samples. #Type 2 diabetes mellitus on lantus 50 units bid. ISS. Accuchecks ACHS Was admitted in DKA due to noncompliance. DKA has resolved. A1c was 11.4. #Acute on chronic anemia on oral iron. hb today is 8.6. #COVID-19 infection: On room air. Out of isolation now. #Hypothyroidism: On Synthroid DVT prophylaxis: lovenox Total time spent on care of patient: 25 minutes. Visit Charges Inpatient E&M: [address] [facility] Hosp L3
[2021-06-02] MEDS: Ferrous Sulfate 325 MG Tablet PO (12:15)
[2021-06-02 16:35] LABS: Bedside Glucose 219 mg/dL (70-110)
--- NOTE | 2021-06-02 16:38 | CASEMGMT ---
Social Work SW placed two calls to [facility] this afternoon to check on ability to accept pt. VM's left with request to return calls to this with determination of acceptance. WHITNEY You
[2021-06-02 17:21] LABS: Vancomycin, Trough Level 19.1 ug/mL (5.0-15.0)
--- NOTE | 2021-06-02 17:51 | PCM.RX.CS ---
Consult Pharmacy has been consulted to manage selected antiobiotic: Vancomycin Type of Consult: Follow-up Prior Doses of Antibiotics Received/Current Regimen: Medications Vancomycin HCl 1,250 mg/ (Sodium Chloride) 275 mls @ 167 mls/hr IV Q24H ORTIZ Last Admin: 06/01/21 18:17 Dose: Infused Documented by: Labs: Sodium 140 mmol/L (136-145) 06/02/21 06:02 Potassium 3.6 mmol/L (3.5-5.1) 06/02/21 06:02 Chloride 103 mmol/L (98-107) 06/02/21 06:02 Carbon Dioxide 29.0 mmol/L (21.0-32.0) 06/02/21 06:02 Anion Gap 8 (5-15) 06/02/21 06:02 BUN 22 mg/dL (7-18) H 06/02/21 06:02 Creatinine 1.16 mg/dL (0.55-1.02) H 06/02/21 06:02 Est GFR (MDRD) Af Amer 62 mL/min (>60) 06/02/21 06:02 Est GFR (MDRD) Non-Af 51 mL/min (>60) L 06/02/21 06:02 BUN/Creatinine Ratio 19.0 RATIO (10-20) 06/02/21 06:02 Glucose 143 mg/dL (74-106) H 06/02/21 06:02 Vancomycin Trough 19.1 ug/mL (5.0-15.0) H 06/02/21 16:30 Random Vancomycin 18.7 ug/mL (0.0-15.0) H 05/31/21 15:33 Microbiology: Microbiology 05/28/21 12:47 Blood Culture (Wb) - Left Wrist Blood Culture - Final No growth in 5 days. 05/27/21 10:00 Blood Culture (Wb) - Left Hand Blood Culture - Final No growth in 5 days. 05/28/21 Unknown Wound - Leg, Right Gram Stain - Final 05/28/21 Unknown Wound - Leg, Right Wound Culture - Final Meth. resistant Staph. aureus 05/28/21 Unknown Wound - Leg, Right Anaerobic Culture - Final No anaerobic bacteria isolated. 05/30/21 18:45 Stool Stool Occult Blood (ZORAIDA) - Final 05/21/21 19:00 Wound Abcess - Right Foot Gram Stain - Final 05/21/21 19:00 Wound Abcess - Right Foot Wound Culture - Final Meth. resistant Staph. aureus 05/21/21 19:00 Wound Abcess - Right Foot Anaerobic Culture - Final No anaerobic bacteria isolated. 05/23/21 18:30 Tissue - Right Foot Gram Stain - Final 05/23/21 18:30 Tissue - Right Foot Wound Culture - Final Meth. resistant Staph. aureus 05/23/21 18:30 Tissue - Right Foot Anaerobic Culture - Final No anaerobic bacteria isolated. 05/20/21 19:23 Blood Culture (Wb) - Left Wrist Blood Culture - Final Staphylococcus aureus 05/20/21 19:00 Blood Culture (Wb) - Right Hand Bacteria Detection (PCR) - Final Meth. resistant Staph. aureus 05/20/21 19:00 Blood Culture (Wb) - Right Hand Blood Culture - Final Meth. resistant Staph. aureus 05/21/21 00:05 Wound - Toe Gram Stain - Final 05/21/21 00:05 Wound - Toe Wound Culture - Final Meth. resistant Staph. aureus Enterococcus faecalis Weight used for dosin kg Goal Trough: 15-20 mcg/mL Pharmacy Plan for Drug Dosing: Trough in range. Recommend one more 48h level to be sure she doesn't creep out of therapeutic range. Pharmacy Service will continue to monitor and adjust dosing as required. Follow-Up Labs: Trough Vancomycin - 06/04 @ 2822
[2021-06-02] MEDS: Insulin Lispro 100 UNIT/ML INSULN.PEN SC (23:09)
[2021-06-02 23:20] LABS: Bedside Glucose 252 mg/dL (70-110)
[2021-06-03] MEDS: DAKIN'S SOL HALF STRENGTH (=0.25%) 1 APPLIC TOPICAL ×2 (00:06→09:34)
[2021-06-03 02:37] VITALS: PULSE 65
[2021-06-03 03:48] VITALS: BP 112/65; PULSE 68; RESP 16; TEMP 36.5; O2SAT 99
[2021-06-03 06:36] LABS: Bedside Glucose 131 mg/dL (70-110)
[2021-06-03 06:55] LABS: Absolute Lymphocyte Count 2.64 X10^3/uL (0.83-4.51); Absolute Neutrophil Count 9.3 X10^3/uL (2.0-7.7); Basophil# 0.17 X10^3/uL; Basophil% 1.2 % (0-1); Eosinophil# 0.41 X10^3/uL; Hematocrit 29.9 % (37-47); Hemoglobin 9.3 g/dL (12.0-15.0); Lymphocyte # 2.64 X10^3/ul (0.83-4.51); Lymphocyte % 19.3 % (19-41); Mean Corp Hgb Conc 31.1 g/dL (32-36); Mean Corpuscular Volume 96.5 fL (81-99); Mean Platelet Vol. 8.9 fl (6.2-12.0); Monocyte% 5.9 % (0-10); NRBC Flagged by Analyzer 0 % (0-5); Neutrophil # 9.32 X10^3/uL (2.7-7.7); Neutrophil % 68.2 % (47-70); Platelet Count 565 K/mm3 (150-450); RBC Distribution Width CV 15.4 % (11.6-14.6); RBC Distribution Width SD 52.1 fl (35.1-43.9); White Blood Count 13.7 K/mm3 (4.4-11.0)
[2021-06-03 07:12] LABS: Anion Gap 7 (5-15); BUN 23 mg/dL (7-18); BUN/Creat Ratio 20.7 RATIO (10-20); Calcium,Total 10.6 mg/dL (8.5-10.1); Chloride 106 mmol/L (98-107); Creatinine, Serum 1.11 mg/dL (0.55-1.02); EST Glomerular Filtration Rate 54 mL/min (>60); Est Glom Filt Rate - Afr Amer 65 mL/min (>60); Estimated Creatinine Clearance 57.09 ml/min; Glucose 132 mg/dL (74-106); Potassium 3.8 mmol/L (3.5-5.1); Sodium Level 141 mmol/L (136-145)
[2021-06-03] MEDS: Morphine 2 MG/ML Syringe IV (07:39)
[2021-06-03 08:30] VITALS: BP 126/68; PULSE 76; RESP 16; TEMP 36.7; O2SAT 98
--- NOTE | 2021-06-03 08:30 | PN_ITS ---
Subjective Subjective This 55 year old female seen today s/p Incision and Drainage with removal of necrotic tissue of the Right leg. She is resting comfortably in bed with no complaints. She denies any fever, nausea, vomiting, chills, or shortness of breath. Objective Data Objective Data Vital Signs: Vital Signs Temp Pulse Resp BP Pulse Ox 97.7 F L 68 16 112/65 99 06/03/21 03:48 06/03/21 03:48 06/03/21 03:48 06/03/21 03:48 06/03/21 03:48 Oxygen Flow Rate (L/min) 2 Oxygen Delivery Method Room Air Weight: 83.6 kg Body Mass Index (BMI) 29.2 Intake & Output: Intake and Output for Last 24 Hours 06/01/21 06/02/21 06/03/21 23:59 23:59 23:59 Intake Total 1201 / 1301 601.75 / 801.75 400 / 400 Output Total 1000 / 1000 Balance 201 / 301 601.75 / 801.75 400 / 400 Lab / Micro Data Result Diagrams: 06/03/21 06:45 06/03/21 06:45 Labs: Laboratory Results - last 24 hr 06/02/21 11:41: POC Glucose 127 H 06/02/21 16:30: Vancomycin Trough 19.1 H 06/02/21 16:30: POC Glucose 219 H 06/02/21 23:06: POC Glucose 252 H 06/03/21 06:17: POC Glucose 131 H 06/03/21 06:45: WBC 13.7 H, RBC 3.10 L, Hgb 9.3 L, Hct 29.9 L, MCV 96.5, MCH 30.0, MCHC 31.1 L, RDW Std Deviation 52.1 H, RDW Coeff of Amos 15.4 H, Plt Count 565 H, MPV 8.9, Immature Gran % (Auto) 2.400 H, Neut % (Auto) 68.2, Lymph % (Auto) 19.3, [place] % (Auto) 5.9, Eos % (Auto) 3.0, Baso % (Auto) 1.2 H, Absolute Neuts (auto) 9.3 H, Absolute Lymphs (auto) 2.64, Nucleated RBC % 0 06/03/21 06:45: Sodium 141, Potassium 3.8, Chloride 106, Carbon Dioxide 28.0, A nion Gap 7, BUN 23 H, Creatinine 1.11 H, Estim Creat Clear Calc 57.09, Est GFR (MDRD) Af Amer 65, Est GFR (MDRD) Non-Af 54 L, BUN/Creatinine Ratio 20.7 H, Glucose 132 H, Calcium 10.6 H Micro: Microbiology 05/28/21 12:47 Blood Culture (Wb) - Left Wrist Blood Culture - Final No growth in 5 days. 05/27/21 10:00 Blood Culture (Wb) - Left Hand Blood Culture - Final No growth in 5 days. 05/28/21 Unknown Wound - Leg, Right Gram Stain - Final 05/28/21 Unknown Wound - Leg, Right Wound Culture - Final Meth. resistant Staph. aureus 05/28/21 Unknown Wound - Leg, Right Anaerobic Culture - Final No anaerobic bacteria isolated. 05/30/21 18:45 Stool Stool Occult Blood (ZORAIDA) - Final 05/21/21 19:00 Wound Abcess - Right Foot Gram Stain - Final 05/21/21 19:00 Wound Abcess - Right Foot Wound Culture - Final Meth. resistant Staph. aureus 05/21/21 19:00 Wound Abcess - Right Foot Anaerobic Culture - Final No anaerobic bacteria isolated. 05/23/21 18:30 Tissue - Right Foot Gram Stain - Final 05/23/21 18:30 Tissue - Right Foot Wound Culture - Final Meth. resistant Staph. aureus 05/23/21 18:30 Tissue - Right Foot Anaerobic Culture - Final No anaerobic bacteria isolated. 05/20/21 19:23 Blood Culture (Wb) - Left Wrist Blood Culture - Final Staphylococcus aureus 05/20/21 19:00 Blood Culture (Wb) - Right Hand Bacteria Detection (PCR) - Final Meth. resistant Staph. aureus 05/20/21 19:00 Blood Culture (Wb) - Right Hand Blood Culture - Final Meth. resistant Staph. aureus 05/21/21 00:05 Wound - Toe Gram Stain - Final 05/21/21 00:05 Wound - Toe Wound Culture - Final Meth. resistant Staph. aureus Enterococcus faecalis Physical Exam Const alert and no apparent distress General Appearance: cooperative HEENT normocephalic Extremity normal capillary refill Extremity Narrative: no cyanosis, no calf tenderness palpable pulses muscle wasting noted. no tenderness. General Extremity: edema Skin Skin Narrative: Her skin is atrophic. Right lower extremity has multiple incision and drainage with debridement sites. There is no noa purulence on expression from the foot or leg. There is some devitalized tissue still noted at the most proximal aspect of the leg fasciotomy site which will continue to be monitored. Is noted there is exposed bone and tendon at all of the sites. The previously noted devitalized tendon, necrotic tissue and purulence remains resolved and there is healthy bleeding tissue. There is no additional palpable bogginess or fluctuance of the leg ankle or foot. There is both healthy and devitalized necrotic tissue noted at all sites also. The dorsal central incisio n appears healthy without any purulence. There is no odor. Erythema resolved. No streaking or odor Neuro Neuro Narrative: lack of normal epicritic sensation via light touch consistent with neuropathy Assessment & Plan Assessment/Plan (1) MRSA bacteremia: (2) Cellulitis of right lower limb: (3) Infectious tenosynovitis: PLAN: Re-evaluation performed. s/p wide I+D debridement right foot and ankle from 05-23-21 and 05-28-21. Her vitals are stable and she remains afebrile. white blood cell count is still elevated at about 13.7, but trending down. There is no active bleeding from right lower extremity at this time. There is no noa purulence or erythema noted this morning. Blood cultures reviewed and noted to be positive for MRSA. Repeat cultures pending. Right foot wound culture has also been obtained and reviewed - noted MRSA and entercoccus. She is on IV antibiotics Vancomycin which she will continue. Infectious disease specialist intervention is reviewed and appreciated. Additional post debridement irrigation cultures from surgery are pending. Dressing changes: today applied clean, Dakin wet to dry gauze, kerlix, abd pads and verito dressing - change BID via dakin's wet to dry. No weightbearing right foot, keep foot elevated. She has significant improvement in tissue quality and reduced purulence since her staged revisional surgery 05-28-21. This will need to be monitored very close. D/C planning - Recommend nursing placement upon discharge for wound care, antibiotics, also will need to be nonweightbearing right foot. Medical management per hospitalist service is noted and appreciated. Continue anticoagulation medication. Podiatry will continue to follow. I answered all the patient's questions. Please do not hesitate to call if you have any questions. Jason Lewis, [facility] [phone]
[2021-06-03] MEDS: Baclofen 10 MG Tablet PO ×2 (08:48→11:00)
[2021-06-03] MEDS: Enoxaparin 30 MG/0.3 ML Syringe SC (09:25)
[2021-06-03] MEDS: Levothyroxine 150 MCG Tablet PO (09:25)
[2021-06-03] MEDS: Montelukast 10 MG Tablet PO (09:25)
[2021-06-03] MEDS: Menthol/Lanolin/Calamine/Znox 113 GM Tube 1 APPLIC TOPICAL (09:26)
[2021-06-03 09:28] VITALS: PULSE 98
[2021-06-03] MEDS: Clotrimazole 1 APPLIC Tube TOPICAL (09:35)
[2021-06-03] MEDS: Insulin Lispro 100 UNIT/ML INSULN.PEN SC (10:54)
[2021-06-03] MEDS: Ferrous Sulfate 325 MG Tablet PO (11:00)
[2021-06-03 11:21] LABS: Bedside Glucose 216 mg/dL (70-110)
--- NOTE | 2021-06-03 12:12 | CASEMGMT ---
Social Work SW received call from Carmela at [facility] and they are able to accept pt and states pt insurance is waiving precert. Therefore, pt can discharge to [facility] when medically ready. Phone call to pt dgt Erika and informed. Erika requesting [facility] be tried one more time. Phone call to Loulou at [facility] and she states that all admissions are on hold indefinitely due to a maintenance issue. Call back to Erika and informed and Erika agreeable to discharge to [facility]. ABDOUL met with pt and informed of above and she is agreeable to d/c to [facility]. Physician chucho. WHITNEY You
--- NOTE | 2021-06-03 12:22 | TREXTCAR_ITS ---
Documented by User: Masood RUBIO 06/03/21 12:32 Diet 05/28/21 19:21 Diet: Carbohydrate Controlled Food consistency:: Regular Liquid Consistency:: Regular/Thin Type of Dietary Supplement:: Chas Diet Comments: Chas BID w/ breakfast & dinner;high pro:1-2 oz extra lean meat/pro Q meal Wound(s) Rt great toe: Wound Type: Neuropathic/Diabetic Foot Ulcer right medial great toe: Wound Type: Neuropathic/Diabetic Foot Ulcer Dressing Change: Dry Sterile Dressing right dorsomedial foot: Wound Type: Open Surgical Wound Dressing Change: Dakins moistened gauze right lateral foot: Wound Type: Open Surgical Wound Dressing Change: Dakins moistened gauze right foot: Wound Type: Surgical Incision Dressing Change: Dakins right anterior lower leg/dorsal foot: Wound Type: Open Surgical Wound Dressing Change: Dakins moistened gauze Therapies Weight Bearing: Non weight bearing Physical Therapy: Eval and Treat Occupational Therapy: Eval and Treat Problem/Diagnosis (1) MRSA bacteremia: Status: Acute (2) Cellulitis of right lower limb: Status: Acute (3) Infectious tenosynovitis: Status: Acute Allergies/Procedures Done in Hospital Allergies clindamycin Allergy (Verified 05/20/21 17:09) Hives pregabalin [From Lyrica] Allergy (Verified 05/20/21 17:09) Swelling bee venom protein (honey bee) Adverse Reaction (Verified 05/20/21 17:09) Anaphylaxis Type of Care/Length of Stay Estimated LOS: Convalescent Care Less Than 30 days Type of Care Needed: Skilled Rehab Potential: Good Prognosis: Good Additional Orders/Day of Discharge Day of Discharge: 06/03/21 Dietary and Speech Recommendations Dietitian Recommendations/Changes: Continue carbohydrate-controlled diet as ordered. Will resume extra 1-2 oz protein/lean meat Q meal and Chas BID with breakfast and dinner for wound healing. Discharge Plan Admission Admit Date/Time: 05/20/21 21:58 Primary Reason for Your Visit: right lower extremity infection Attending Provider: Danielle Zavala Primary Care Provider: Cuong Barros Consulting Providers: Mehul Rubio ; Matt Hester ; Celestino Jones ; Althea Jung GRID CASTING MACHINE OPERATOR HELPER ; David Alexandre Instructions Additional Instructions / Restrictions: -Change right lower extremity wound dressings to leg, ankle and foot daily with dakin wet to dry, covered with gauze, abdominal pads, kerlix, and verito wraps. -Elevate right lower extremity. -non weightbear right lower extremity. Discharge Orders/Prescriptions Prescriptions: New vancomycin 1.25 gram recon soln 1.25 g IV Q12H 40 Days RF: 0 ferrous sulfate [FeroSul] 325 mg (65 mg iron) Tablet 325 mg PO DAILY@1200 Qty: 30 RF: 0 Lantus Solostar U-100 Insulin 100 unit/mL (3 mL) Insulin Pen 50 unit subcut 1100,2200 Qty: 20 RF: 0 oxycodone 5 mg Tablet 5 mg PO Q6H PRN PRN (Reason: Pain Score 6-10) 7 Days Qty: 28 RF: 0 Continued liothyronine 25 MCG tablet 25 mg PO DAILY RF: 0 levothyroxine 150 MCG tablet 150 mcg PO DAILY RF: 0 montelukast [Singulair] 10 MG tablet 10 mg PO DAILY RF: 0 armodafinil 150 MG tablet 150 mg PO BID RF: 0 Levocetirizine Dihydrochloride [Xyzal] 5 MG tablet 5 mg PO DAILY RF: 0 baclofen 10 mg Tablet 10 mg PO TID PRN (Reason: muscle relax) RF: 0 fluticasone propionate 50 mcg/actuation [place],Suspension 1 spray INTRANASAL BID PRN (Reason: allergies) RF: 0 ibuprofen [Advil] 200 mg Tablet 800 mg PO BID PRN (Reason: pain and swelling) RF: 0 Referrals / Follow Up: Irina Gonzalez DPM [STAFF PHYSICIAN] - In 1 Week (Follow up at wound healing center with Dr. Gonzalez. Call [phone].) Mehul Rubio MD [STAFF PHYSICIAN] - Within 2 Weeks Cuong Barros MD [Primary Care Provider] - Within 2 Weeks Disposition Disposition (needs filled in before D/C Order can be placed): [facility] Documented by User: Dr. Danielle Zavala MD 06/03/21 13:24 Allergies/Procedures Done in Hospital Allergies clindamycin Allergy (Verified 05/20/21 17:09) Hives pregabalin [From Lyrica] Allergy (Verified 05/20/21 17:09) Swelling bee venom protein (honey bee) Adverse Reaction (Verified 05/20/21 17:09) Anaphylaxis Discharge Plan Admission Admit Date/Time: 05/20/21 21:58 Primary Reason for Your Visit: right lower extremity infection Attending Provider: Danielle Zavala Primary Care Provider: Cuong Barros Consulting Providers: Mehul Rubio ; Matt Hester ; Celestino Jones ; Althea Jung NP ; David Alexandre Instructions Additional Instructions / Restrictions: -Change right lower extremity wound dressings to leg, ankle and foot daily with dakin wet to dry, covered with gauze, abdominal pads, kerlix, and verito wraps. -Elevate right lower extremity. -non weightbear right lower extremity. Discharge Orders/Prescriptions Prescriptions: New vancomycin 1.25 gram recon soln 1.25 g IV Q12H 40 Days RF: 0 ferrous sulfate [FeroSul] 325 mg (65 mg iron) Tablet 325 mg PO DAILY@1200 Qty: 30 RF: 0 Lantus Solostar U-100 Insulin 100 unit/mL (3 mL) Insulin Pen 50 unit subcut 1100,2200 Qty: 20 RF: 0 oxycodone 5 mg Tablet 5 mg PO Q6H PRN PRN (Reason: Pain Score 6-10) 7 Days Qty: 28 RF: 0 Continued liothyronine 25 MCG tablet 25 mg PO DAILY RF: 0 levothyroxine 150 MCG tablet 150 mcg PO DAILY RF: 0 montelukast [Singulair] 10 MG tablet 10 mg PO DAILY RF: 0 armodafinil 150 MG tablet 150 mg PO BID RF: 0 Levocetirizine Dihydrochloride [Xyzal] 5 MG tablet 5 mg PO DAILY RF: 0 baclofen 10 mg Tablet 10 mg PO TID PRN (Reason: muscle relax) RF: 0 fluticasone propionate 50 mcg/actuation [place],Suspension 1 spray INTRANASAL BID PRN (Reason: allergies) RF: 0 ibuprofen [Advil] 200 mg Tablet 800 mg PO BID PRN (Reason: pain and swelling) RF: 0 Referrals / Follow Up: Irina Gonzalez DPM [STAFF PHYSICIAN] - In 1 Week (Follow up at wound healing center with Dr. Gonzalez. Call [phone].) Mehul Rubio MD [STAFF PHYSICIAN] - Within 2 Weeks Cuong Barros MD [Primary Care Provider] - Within 2 Weeks Disposition Disposition (needs filled in before D/C Order can be placed): [facility]
[2021-06-03] MEDS: oxyCODONE 5 MG Tablet PO (13:10)
--- NOTE | 2021-06-03 14:05 | DS.PCM_ITS ---
Documented by User: Masood RUBIO 06/03/21 14:13 Providers Date of Admission: 05/20/21 Date of Discharge: 06/03/21 Primary Care Physician: Dr. Cuong Barros MD Consultations 05/20/21 22:36 Consult: Onc/Wound/fbi special agent Routine Comment: Consult: Podiatry Routine Consulting Provider: David Alexandre Reason for Consult: RLE Diabetic foot wound with cellulitis/abscesses EMERGENT Consult: No MD Notified: Yes Date Notified: 05/21/21 Time Notified: 09:25 Method of Notification: Text 05/21/21 07:31 Consult: Supervisor [employer] / Pulmonary Medicine Routine Consulting Provider: Pulmonary Medicine [facility] Reason for Consult: DKA EMERGENT Consult: No MD Notified: Yes Date Notified: 05/21/21 Time Notified: 07:32 Method of Notification: Text 05/26/21 17:23 Consult: Infectious Disease Routine Consulting Provider: Mehul Rubio Reason for Consult: Bacteremia, foot infection EMERGENT Consult: No MD Notified: Yes Date Notified: 05/27/21 Time Notified: 07:55 Method of Notification: Answering Service Reason For Visit: DKA/RLE CELLULLITIS AND ABSCESSES Diagnosis Discharge Diagnosis (1) MRSA bacteremia: Status: Acute Code(s): R78.81 - Bacteremia; B95.62 - Methicillin resistant Staphylococcus aureus infection as the cause of diseases classified elsewhere (2) Cellulitis of right lower limb: Status: Acute Code(s): L03.115 - Cellulitis of right lower limb (3) Infectious tenosynovitis: Status: Acute Code(s): M65.10 - Other infective (teno)synovitis, unspecified site Medications at Discharge Home Medications Levocetirizine Dihydrochloride [Xyzal] 5 mg PO DAILY 09/25/16 armodafinil 150 mg PO BID 09/25/16 levothyroxine 150 mcg PO DAILY 09/25/16 liothyronine 25 mg PO DAILY 09/25/16 montelukast [Singulair] 10 mg PO DAILY 09/25/16 baclofen 10 mg PO TID PRN 01/01/21 fluticasone propionate 1 spray INTRANASAL BID PRN 01/01/21 ibuprofen [Advil] 800 mg PO BID PRN 05/21/21 vancomycin 1.25 g IV Q12H 40 Days ea 05/30/21 ferrous sulfate [FeroSul] 325 mg PO DAILY@1200 #30 tab 06/03/21 insulin glargine [Lantus Solostar U-100 Insulin] 50 unit SUBCUT 1100,2200 #20 ml 06/03/21 oxycodone 5 mg PO Q6H PRN PRN 7 Days #28 tab 06/03/21 Hospital Course Summary of Care Provided Minutes Spent on Discharge: 15 Hospital Course: Patient is a 55-year-old female who was admitted to the hospital on 05/20/2021 for evaluation and management of DKA with cellulitis of the right foot. MRI was obtained and revealed acute osteomyelitis of the right foot, podiatry and infectious disease were consulted to participate in management. 1 ) Acute osteomyelitis of right foot POD 6 status post debridement and I&D including fasciotomy of the right leg. ID and podiatry following. Patient denies any acute symptoms of the right foot. Continue IV vancomycin, stop date is 07/08/2021. ID follow up 2 weeks after discharge, follow-up with podiatry within 1 week after discharge. Oxycodone x1 week for pain management and Narcan was provided on discharge. 2) Diabetes mellitus type 2 Continue scheduled Lantus on discharge. 3) acute on chronic iron deficiency anemia Hemoglobin currently 8.6, baseline appears between 9 and 10. Initiate oral iron, continue to monitor CBC. Patient seen by Masood Townsend PA-C, under the supervision of Dr. Zavala. Time spent on patient care: 15 minutes. Physical Exam Narrative Patient is a 55-year-old female comfortably resting in bed, alert and orient x3. Patient denies development of any new symptoms overnight. Does not appear in acute distress. Const alert, oriented x3 and no apparent distress HEENT normocephalic, head/scalp atraumatic and hearing grossly normal bilaterally Eyes PERRL, EOMs intact bilaterally and conjunctivae normal Neck no lymphadenopathy, supple and no JVD Resp normal respiratory effort, no retractions, no use of accessory muscles and clear to auscultation bilaterally Cardio regular rate, regular rhythm, no murmurs and no JVD GI normal to inspection, nondistended, normoactive bowel sounds, soft to palpation and non-tender Extremity Extremity Narrative: Right lower extremity is appropriately dressed and bandaged. No purulence, odor, erythema or streaking noted. Skin Skin Narrative: See extremity. Neuro CN's II-XII intact bilaterally Psych affect normal Weight / BMI Weight Weight: 184 lb 4.903 oz Body Mass Index (BMI) 29.2 ABG / Lab / Microbiology Data Result Diagrams: 06/03/21 06:45 06/03/21 06:45 Laboratory: Laboratory Results - last 24 hr 06/02/21 16:30: Vancomycin Trough 19.1 H 06/02/21 16:30: POC Glucose 219 H 06/02/21 23:06: POC Glucose 252 H 06/03/21 06:17: POC Glucose 131 H 06/03/21 06:45: WBC 13.7 H, RBC 3.10 L, Hgb 9.3 L, Hct 29.9 L, MCV 96.5, MCH 30.0, MCHC 31.1 L, RDW Std Deviation 52.1 H, RDW Coeff of Amos 15.4 H, Plt Count 565 H, MPV 8.9, Immature Gran % (Auto) 2.400 H, Neut % (Auto) 68.2, Lymph % (A uto) 19.3, Reagan % (Auto) 5.9, Eos % (Auto) 3.0, Baso % (Auto) 1.2 H, Absolute Neuts (auto) 9.3 H, Absolute Lymphs (auto) 2.64, Nucleated RBC % 0 06/03/21 06:45: Sodium 141, Potassium 3.8, Chloride 106, Carbon Dioxide 28.0, Anion Gap 7, BUN 23 H, Creatinine 1.11 H, Estim Creat Clear Calc 57.09, Est GFR (MDRD) Af Amer 65, Est GFR (MDRD) Non-Af 54 L, BUN/Creatinine Ratio 20.7 H, Glucose 132 H, Calcium 10.6 H 06/03/21 10:52: POC Glucose 216 H Microbiology: Microbiology 05/28/21 12:47 Blood Culture (Wb) - Left Wrist Blood Culture - Final No growth in 5 days. 05/27/21 10:00 Blood Culture (Wb) - Left Hand Blood Culture - Final No growth in 5 days. 05/28/21 Unknown Wound - Leg, Right Gram Stain - Final 05/28/21 Unknown Wound - Leg, Right Wound Culture - Final Meth. resistant Staph. aureus 05/28/21 Unknown Wound - Leg, Right Anaerobic Culture - Final No anaerobic bacteria isolated. 05/30/21 18:45 Stool Stool Occult Blood (ZORAIDA) - Final 05/21/21 19:00 Wound Abcess - Right Foot Gram Stain - Final 05/21/21 19:00 Wound Abcess - Right Foot Wound Culture - Final Meth. resistant Staph. aureus 05/21/21 19:00 Wound Abcess - Right Foot Anaerobic Culture - Final No anaerobic bacteria isolated. 05/23/21 18:30 Tissue - Right Foot Gram Stain - Final 05/23/21 18:30 Tissue - Right Foot Wound Culture - Final Meth. resistant Staph. aureus 05/23/21 18:30 Tissue - Right Foot Anaerobic Culture - Final No anaerobic bacteria isolated. 05/20/21 19:23 Blood Culture (Wb) - Left Wrist Blood Culture - Final Staphylococcus aureus 05/20/21 19:00 Blood Culture (Wb) - Right Hand Bacteria Detection (PCR) - Final Meth. resistant Staph. aureus 05/20/21 19:00 Blood Culture (Wb) - Right Hand Blood Culture - Final Meth. resistant Staph. aureus 05/21/21 00:05 Wound - Toe Gram Stain - Final 05/21/21 00:05 Wound - Toe Wound Culture - Final Meth. resistant Staph. aureus Enterococcus faecalis Meaningful Use Info Meaningful Use Diagnoses (Choose all that apply): None applicable Discharge Plan Admission Admit Date/Time: 05/20/21 21:58 Primary Reason for Your Visit: right lower extremity infection Attending Provider: Danielle Zavala Primary Care Provider: Cuong Barros Consulting Providers: Mehul Rubio ; Matt Hester ; Celestino Jones ; Althea Jung STRUCTURAL MILL SUPERVISOR ; David Alexandre Instructions Additional Instructions / Restrictions: -Change right lower extremity wound dressings to leg, ankle and foot daily with dakin wet to dry, covered with gauze, abdominal pads, kerlix, and verito wraps. -Elevate right lower extremity. -non weightbear right lower extremity. Discharge Orders/Prescriptions Prescriptions: New vancomycin 1.25 gram recon soln 1.25 g IV Q12H 40 Days RF: 0 ferrous sulfate [FeroSul] 325 mg (65 mg iron) Tablet 325 mg PO DAILY@1200 Qty: 30 RF: 0 Lantus Solostar U-100 Insulin 100 unit/mL (3 mL) Insulin Pen 50 unit subcut 1100,2200 Qty: 20 RF: 0 oxycodone 5 mg Tablet 5 mg PO Q6H PRN PRN (Reason: Pain Score 6-10) 7 Days Qty: 28 RF: 0 Continued liothyronine 25 MCG tablet 25 mg PO DAILY RF: 0 levothyroxine 150 MCG tablet 150 mcg PO DAILY RF: 0 montelukast [Singulair] 10 MG tablet 10 mg PO DAILY RF: 0 armodafinil 150 MG tablet 150 mg PO BID RF: 0 Levocetirizine Dihydrochloride [Xyzal] 5 MG tablet 5 mg PO DAILY RF: 0 baclofen 10 mg Tablet 10 mg PO TID PRN (Reason: muscle relax) RF: 0 fluticasone propionate 50 mcg/actuation [place],Suspension 1 spray INTRANASAL BID PRN (Reason: allergies) RF: 0 ibuprofen [Advil] 200 mg Tablet 800 mg PO BID PRN (Reason: pain and swelling) RF: 0 Referrals / Follow Up: Irina Gonzalez DPM [STAFF PHYSICIAN] - In 1 Week (Follow up at wound healing center with Dr. Gonzalez. Call [phone].) Mehul Rubio MD [STAFF PHYSICIAN] - Within 2 Weeks Cuong Barros MD [Primary Care Provider] - Within 2 Weeks Disposition Disposition (needs filled in before D/C Order can be placed): Shelter Facility Documented by User: Dr. Danielle Zavala MD 06/03/21 16:06 Providers Date of Admission: 05/20/21 Reason For Visit: DKA/RLE CELLULLITIS AND ABSCESSES Medications at Discharge Home Medications Levocetirizine Dihydrochloride [Xyzal] 5 mg PO DAILY 09/25/16 armodafinil 150 mg PO BID 09/25/16 levothyroxine 150 mcg PO DAILY 09/25/16 liothyronine 25 mg PO DAILY 09/25/16 montelukast [Singulair] 10 mg PO DAILY 09/25/16 baclofen 10 mg PO TID PRN 01/01/21 fluticasone propionate 1 spray INTRANASAL BID PRN 01/01/21 ibuprofen [Advil] 800 mg PO BID PRN 05/21/21 vancomycin 1.25 g IV Q12H 40 Days ea 05/30/21 ferrous sulfate [FeroSul] 325 mg PO DAILY@1200 #30 tab 06/03/21 insulin glargine [Lantus Solostar U-100 Insulin] 50 unit SUBCUT 1100,2200 #20 ml 06/03/21 oxycodone 5 mg PO Q6H PRN PRN 7 Days #28 tab 06/03/21 Physical Exam Const alert, oriented x3 and no apparent distress Constitutional Narrative: Upper middle-aged white female lying in bed, appears ill but nontoxic, no acute distress, nursing at bedside General Appearance: cooperative Orientation / Consciousness: lethargic Exam Limitations: no limitations HEENT normocephalic, head/scalp atraumatic, hearing grossly normal bilaterally and moist oral mucous membranes Eyes PERRL, EOMs intact bilaterally, conjunctivae normal and no scleral icterus Eyes Narrative: No scleral icterus Neck no lymphadenopathy, supple, no JVD and no carotid bruits Neck Narrative: Trachea midline, no thyroid enlargement General: trachea midline Resp normal respiratory effort, no retractions, no use of accessory muscles and clear to auscultation bilaterally Auscultation: Negative for crackles, rales, rhonchi or wheezes Cardio regular rate, regular rhythm, S1 normal heart sound, S2 normal heart sound, no murmurs, no rub, no gallops, no clicks and no JVD Cardio Narrative: Mild tachycardia GI normal to inspection, nondistended, normoactive bowel sounds, soft to palpation, non-tender and non-distended Extremity normal to inspection, full ROM and no clubbing, cyanosis or edema Skin no rashes or lesions noted, skin turgor normal, no jaundice, no petechiae and no mottling Neuro oriented x3, CN's II-XII intact bilaterally, moves all extremities, no focal motor deficits and no sensory deficits noted Sensorium / Orientation: awake and alert Psych affect normal Psych Narrative: flat affect ABG / Lab / Microbiology Data Result Diagrams: 06/03/21 06:45 06/03/21 06:45 Discharge Plan Admission Admit Date/Time: 05/20/21 21:58 Primary Reason for Your Visit: right lower extremity infection Attending Provider: Danielle Zavala Primary Care Provider: Cuong Barros Consulting Providers: Mehul Rubio ; Matt Hester ; Celestino Jones ; Althea Jung STRUCTURAL MILL SUPERVISOR ; David Alexandre Instructions Additional Instructions / Restrictions: -Change right lower extremity wound dressings to leg, ankle and foot daily with dakin wet to dry, covered with gauze, abdominal pads, kerlix, and verito wraps. -Elevate right lower extremity. -non weightbear right lower extremity. Discharge Orders/Prescriptions Prescriptions: New vancomycin 1.25 gram recon soln 1.25 g IV Q12H 40 Days RF: 0 ferrous sulfate [FeroSul] 325 mg (65 mg iron) Tablet 325 mg PO DAILY@1200 Qty: 30 RF: 0 Lantus Solostar U-100 Insulin 100 unit/mL (3 mL) Insulin Pen 50 unit subcut 1100,2200 Qty: 20 RF: 0 oxycodone 5 mg Tablet 5 mg PO Q6H PRN PRN (Reason: Pain Score 6-10) 7 Days Qty: 28 RF: 0 Continued liothyronine 25 MCG tablet 25 mg PO DAILY RF: 0 levothyroxine 150 MCG tablet 150 mcg PO DAILY RF: 0 montelukast [Singulair] 10 MG tablet 10 mg PO DAILY RF: 0 armodafinil 150 MG tablet 150 mg PO BID RF: 0 Levocetirizine Dihydrochloride [Xyzal] 5 MG tablet 5 mg PO DAILY RF: 0 baclofen 10 mg Tablet 10 mg PO TID PRN (Reason: muscle relax) RF: 0 fluticasone propionate 50 mcg/actuation [place],Suspension 1 spray INTRANASAL BID PRN (Reason: allergies) RF: 0 ibuprofen [Advil] 200 mg Tablet 800 mg PO BID PRN (Reason: pain and swelling) RF: 0 Referrals / Follow Up: Irina Gonzalez DPM [STAFF PHYSICIAN] - In 1 Week (Follow up at wound healing center with Dr. Gonzalez. Call [phone].) Mehul Rubio MD [STAFF PHYSICIAN] - Within 2 Weeks Cuong Barros MD [Primary Care Provider] - Within 2 Weeks Disposition Disposition (needs filled in before D/C Order can be placed): Shelter Facility Charges/Coding Addendum Addendum: Patient seen by Masood Townsend PA-C under my supervision Patient is a 55-year-old female with a past medical history as outlined was admitted through the ED on 05/20/2021 with a complaint of generalized weakness with associated COVID-like symptoms for a week. She had tested positive for COVID a few days prior to admission and also admitted to anorexia as well as polyuria and polydipsia. Chart also notes a swelling and redness of her right foot. 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 Her blood sugars have also been markedly elevated. On admission she was found to be in DKA so was admitted and managed for DKA and infected right foot diabetic foot cellulitis. She was st arted on IV vancomycin and Zosyn and started on insulin drip and admitted to the ICU. She remained on room air and so did not require any remdesivir or Decadron for COVID. Podiatry was consulted and she had debridement of done at the bedside initially. However the foot remains swollen so she had I&D with fasciotomy done. Gap closed and she was transitioned off of insulin drip onto subcu insulin. Blood cultures grew MRSA and wound cultures also grew MRSA. She had a 2D echo which was negative for any evidence of valvular vegetation. ID was also consulted. Plan was for her to continue on IV vancomycin with stop date of 07/08/2021. She had MRI which showed that she had osteomyelitis of the right foot. She had repeat blood cultures which she was in the MRI yesterday had cleared from the blood. She was evaluated by PT OT and deemed just needing skilled therapy. She will discharge to residential home on 06/03/2021. She is to follow-up with her primary care doctor, infectious disease and podiatry. Patient was seen and examined prior to discharge. She had no active complaints and felt well. Resistance otherwise negative. Labs and vitals reviewed. Home medication reviewed and reconciled. O/E: const: alert, oriented x 3 and no apparent distress. HEENT: head/scalp atraumatic and moist oral mucous membranes Head and scalp: normocephalic, atruamtic. Neck: no lymphadenopathy, supple Resp: clear to auscultation Cardio: regular rate and rhythm, no murmur GI: abdomen soft, nontender, no organomegaly Extremities: right foot bandaged' Skin: right foot bandaged, no rash Neuro: CN II-XII intact, Psych: flat affect Plan is to discharge to SNF today. Total time spent on the care of the pateint today: 40 mins Visit Charges Inpatient E&M: 92427 Disch Hosp
[2021-06-03 14:14] VITALS: PULSE 100
--- NOTE | 2021-06-03 14:21 | CASEMGMT ---
Social Work Per physician, pt ready to be discharged today. 7000 Convalescent form completed in [employer] system. Orders faxed to [facility]. [facility] for 1600 cot transport. Pt updated and states she will call her dgt and notify of discharge time. Phone call to [facility] and notified Carmela of discharge time. Nursing updated. Discharge to [facility] skilled level of care under convalescent stay. WHITNEY You
== END 2021-06-03 16:15 | DRG 622 ==
LOC: ED 21:42 → ICU 22:11 → PCU 05-22 13:17 → MS2 05-27 11:02
PROVIDERS: Hospitalist; Internal Medicine; Internal Medicine Critical Care Medicine; Internal Medicine Infectious Disease; Nurse Practitioner Family; Physician Assistant; Podiatrist; Admitting Provider Internal Medicine; Emergency Provider Emergency Medicine; PCP Family Medicine; Visit Provider Student in an Organized Health Care Education/Training Program
PROC: 0JBQ0ZZ Excision of Right Foot Subcutaneous Tissue and Fascia, Open Approach (ICD-10-PCS; principal; 2021-05-23 16:00)
PROC: 0KBV0ZZ Excision of Right Foot Muscle, Open Approach (ICD-10-PCS; principal; 2021-05-28 16:25)
DX: E11.621 Type 2 diabetes mellitus with foot ulcer (principal); U07.1 COVID-19; G93.41 Metabolic encephalopathy; D62 Acute posthemorrhagic anemia; M86.171 Other acute osteomyelitis, right ankle and foot; M86.671 Other chronic osteomyelitis, right ankle and foot; L03.115 Cellulitis of right lower limb; L02.611 Cutaneous abscess of right foot; E11.10 Type 2 diabetes mellitus with ketoacidosis without coma; E11.610 Type 2 diabetes mellitus with diabetic neuropathic arthropathy; E11.42 Type 2 diabetes mellitus with diabetic polyneuropathy; L97.512 Non-pressure chronic 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; E11.69 Type 2 diabetes mellitus with other specified complication; M65.88 Other synovitis and tenosynovitis, other site; E03.9 Hypothyroidism, unspecified; E87.6 Hypokalemia; E83.39 Other disorders of phosphorus metabolism; B95.62 Methicillin resistant Staphylococcus aureus infection as the cause of diseases classified elsewhere; E83.51 Hypocalcemia; M65.171 Other infective (teno)synovitis, right ankle and foot; Z79.84 Long term (current) use of oral hypoglycemic drugs; Z87.891 Personal history of nicotine dependence; G47.9 Sleep disorder, unspecified; Z91.19 Patient's noncompliance with other medical treatment and regimen; Z79.899 Other long term (current) drug therapy; Z79.890 Hormone replacement therapy
CPT/HCPCS: 36415; 36569; 71045; 71275; 73630; 73700; 73718; 73721; 80048; 80053; 80202; 81001; 81025; 82009; 82274; 82803; 82962; 83036; 83540; 83550; 83605; 83735; 84100; 84443; 84484; 85014; 85018; 85025; 85379; 85652; 86140; 86850; 86900; 86901; 86920; 87015; 87040; 87070; 87075; 87077; 87102; 87116; 87149; 87186; 87205; 87206; 87426; 87635; 87640; 87641; 88304; 88305; 93005; 93306; 93971; 97110; 97162; 97166; 97530; 97535; 97803; 99251; 99285; J7030; J7040; J7050; J7120; P9016; Q9967; U0005; A4216; G0463; J0610; J2405; J2916; J7799; U0003

== ENCOUNTER 2021-06-19 10:19 | Outpatient (RCR) | payer BC, MEDICAID, SELFPAY ==
[2021-01-22 00:42] VITALS: BP 130/71; PULSE 80; RESP 16; TEMP 35.9
[2021-06-19 10:21] VITALS: BP 125/62; PULSE 97; RESP 16; BMI 26.9
--- NOTE | 2021-06-19 12:20 | PCM.WC.HP ---
History of Present Illness Date of Service: 06/19/21 Chief Complaint: right foot ulcer and Right Leg wound History of Wound: This 55-year-old female presents for care of right foot wound. She had surgery at [facility] in November 2020. She denies current fever, chill, nausea, vomiting. She denies delays in wound care and has been applying saline wet-to-dry to help with home health. She relates her bone biopsy that was obtained during her foot surgery was negative for osteomyelitis. She has a PICC placed and saw infectious disease specialist, Dr. Paez at [facility]. She relates she is almost complete with her IV antibiotic course. She is offloading with a surgical shoe. She takes nutritional supplementation including vitamin D and B. She denies claudication. She does have rest paresthesias. She is diabetic with an A1c of over 8%. She also has history of back injuries. Since her last visit, she reports she had thick fluid squirting out of the wound with application of her silver dressing. She was concerned it was infected and called in yesterday. She is advised by nursing staff to go to the emergency room if she thought she had a rapid onset infection. She relates she is scheduled to see her surgeon tomorrow. She did not obtain the previously ordered labs and foot x-rays. She denies current redness or odor. Medical records reviewed from and it is noted she had right foot incision and drainage of fifth metatarsal on 12-04-20. Her surgeon was Dr. Blanchard. She is advised wearing AFO brace. It is noted she started on Bactrim and then after the surgery she was placed on IV antibiotics. She later developed an infection of her right foot ulceration and underwent I&D with wide debridement on 05-23-21 and 05-28-[address] Alexandre and Dr. Gonzalez. Cultures were positive for MRSA and Enterococcus and was placed on IV Vancomycin by infectious disease. She was discharged to a [facility] facility with instructions for wound vac application to right anterior leg and lateral right foot and wet to dry Dakin's dressings to the right foot. Allergies: Clindamycin Medications cyclo-Benzapril, NuvaRing, Advil, Cytomel, [place], armodafinil, Singulair, Synthroid, Lyrica Past medical history: diabetes and history of back surgery, ankle surgery, right knee arthroscopy Social history: former smoker and no current tobacco use; quit in 1981 [facility] Medical History (Updated 06/19/21 @ 13:[address] Jason Lewis DPM) Acute osteomyelitis of left foot Allergies Cellulitis of right lower limb Charcot's joint of right foot COVID-19 Diabetes mellitus with diabetic polyneuropathy DKA, type 2 History of MRSA infection Hypothyroidism Infectious tenosynovitis Malnutrition MRSA bacteremia Narcolepsy 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 Sleep disorder Type 2 diabetes mellitus with diabetic polyneuropathy Weakness Home Medications Levocetirizine Dihydrochloride [Xyzal] 5 mg PO DAILY 09/25/16 [History Last Taken Unknown] armodafinil 150 mg PO BID 09/25/16 [History Last Taken Unknown] levothyroxine 150 mcg PO DAILY 09/25/16 [History Last Taken Unknown] liothyronine 25 mg PO DAILY 09/25/16 [History Last Taken Unknown] montelukast [Singulair] 10 mg PO DAILY 09/25/16 [History Last Taken Unknown] baclofen 10 mg PO TID PRN 01/01/21 [History Last Taken Unknown] fluticasone propionate 1 spray INTRANASAL BID PRN 01/01/21 [History Last Taken Unknown] ibuprofen [Advil] 800 mg PO BID PRN 05/21/21 [History Last Taken Unknown] vancomycin 1.25 g IV Q12H 40 Days ea 05/30/21 [Rx Last Taken Unknown] ferrous sulfate [FeroSul] 325 mg PO DAILY@1200 #30 tab 06/03/21 [Rx Last Taken Unknown] insulin glargine [Lantus Solostar U-100 Insulin] 50 unit SUBCUT 1100,2200 #20 ml 06/03/21 [Rx Last Taken Unknown] oxycodone 5 mg PO Q6H PRN PRN 7 Days #28 tab 06/03/21 [Rx Last Taken Unknown] Allergy/AdvReac Type Severity Reaction Status Date / Time clindamycin Allergy Hives Verified 05/20/21 17:09 pregabalin [From Lyrica] Allergy Swelling Verified 05/20/21 17:09 bee venom protein (honey bee) AdvReac Anaphylaxis Verified 05/20/21 17:09 Family History (Updated 05/20/21 @ 22:[address] Siobhan Huang DO) Other Diabetes Heart disease Hypertension Surgical History (Updated 05/21/21 @ 09:51 by Deborah Avitia) History of ankle surgery History of cholecystectomy Social History (Updated 05/20/21 @ 22:[address] Siobhan Huang DO) Smoking Status: Former smoker alcohol intake: current alcohol intake frequency: holidays/special occasions only substance use type: does not use ROS Constitutional Constitutional: Denies chills, fatigue, fever(s), malaise, night sweats or weakness Eyes Eyes: Denies change in vision, double vision or dry eyes ENT HEENT: Denies dysphagia, nasal congestion or sore throat Cardiovascular Cardiovascular: Denies chest pain, edema or fatigue Respiratory/Chest Respiratory/Chest: Denies cough, productive cough or wheezing Gastrointestinal Gastrointestinal: Denies abdominal pain, diarrhea, nausea or vomiting Genitourinary Genitourinary: Denies dysuria, hematuria or urinary frequency Musculoskeletal Musculoskeletal: Reports numbness and tingling; Denies joint pain, joint stiffness or muscle weakness Integumentary Integumentary: Reports wounds and other Details: Lateral right foot wound, medial right foot wound, anterior lower leg wound ; Denies rash Neurologic Neurologic: Denies dizziness, headache(s) or seizures Psychiatric Psychiatric: Denies anxiety or depression Hematologic/Lymphatic Hematologic/Lymphatic: Denies easy bleeding or easy bruising Vital Signs Vital Signs Vital Signs: 06/19/21 10:21 Pulse Rate 97 Respiratory Rate 16 Blood Pressure 125/62 H Blood Pressure Mean 83 Blood Pressure Source Monitor Blood Pressure Position Supine Blood Pressure Location Left Arm Weight Weight: 80.286 kg Body Mass Index (BMI) 26.9 Physical Exam Const alert, oriented x3 and no apparent distress General Appearance: cooperative and comfortable HEENT normocephalic Eyes General Eye: normal appearance of both eyes Neck General: normal visual inspection Lymph Lymphatic: no lymphadenopathy noted and no lymphedema noted Resp normal respiratory effort Cardio regular rate and regular rhythm Skin no rashes or lesions noted Skin Narrative: Ulceration sites to the anterior right lower extremity, lateral right foot and medial right foot. Surrounding skin is intact, soft and supple, and atrophic. Wound Narrative: All wounds are secondary to previous surgical debridement for abscess of the foot and anterior compartment of the lower extremity. Lateral foot ulceration right foot demonstrates mix of fibrotic and granular tissue with no localized erythema, no purulent drainage, no malodor or other localized signs of infection. Medial right foot ulceration granulating in well with superior portion almost approximated, central portion approximated, and distal portion almost approximated with mixed fibrogranular tissue and no localized signs of erythema, no purulence, no malodor, or other localized signs of infection. Right lower extremity anterior leg wound is granulating in with less exposed tendon of the extensor hallucis longus and anterior tibial tendon. Ulceration site is not as deep as previous visits. Anterior tibial tendon does show some signs of desiccation with some darkened discoloration. Wound bed is 100% granular with scant fibrotic tissue. Ulceration site demonstrates no surrounding erythema, no purulent drainage, no malodor, no red streaking up the leg, or other localized signs of infection. Debridement Note Debridement Note Wound debrided: Right anterior lower extremity, lateral right foot, medial right foot Laterality: Right Wound Grade/Stage: Gonzalez stage II Type of Debridement: Excisional debridement Anesthesia Used: 4% Lidocaine Solution and Cetacaine Depth: in the subcutaneous layer Percentage of wound debrided: 100 Instrument Used: 3mm curette Tissue Removed: Fibrous, devitalized subcutaneous, biofilm, slough Severity: Fat Layer Exposed Amount of bleeding with debridement: Mild Bleeding Controlled with: Pressure Patient tolerated procedure: Patient tolerated procedure well Post-Debridement Measurements and Additional Note: Post-Debridement Measurements/Treatment - Nurse 1 - General Ulcer Assessment Start: 06/19/21 10:21 Freq: Status: Active Protocol: RUKHSANA Activity Type Activity Date Activity User E-Sign Co-Sign Detail Recorded Client Recorded Date Recorded By Document 06/19/21 10:21 [id number] 06/19/21 10:49 06/19/21 10:21 - Today's Visit Information Type of service Initial Visit Transfer Assistance Stretcher Patient Identification Verified (Name & Yes ) Patient Requires Transmission-Based No Precautions Finger Stick Blood Sugar(mg/dl) (if 98 indicated): Blood Sugar Stated by Patient Height and Weight Height 5 ft 8 in Weight 80.286 kg Weight in Pounds 177.0 lbs Body Mass Index (BMI) 26.9 BMI Classification Overweight BSA - Delroy 1.94 Vital Signs Pulse Rate (60-100) 97 Pulse Location Monitor Respiratory Rate (12-18) 16 Respiratory rate source Observation Blood Pressure (90/60-120/80) 125/62 H Blood Pressure Mean 83 Source Monitor Position Supine Blood Pressure Location Left Arm History Since Last Visit- (Skip if this is Patient's initial visit) Left Footwear No Footwear Right Footwear No Footwear Pain Scale: 0-10 Numeric Is Patient Pain Free? Yes Communication Assessment Preferred language Faroese Air Conditioning Engineer Required No Able to Read Yes Able to Write Yes Communication Tools None Right Hearing Abillity Normal Left Hearing Abillity Normal Visual Assistive Devices Glasses Teaching Assessment Preferences Verbal,Written, Audio/Visual, Demonstration Barriers to Learning None Readiness To Learn Good Willingness to Engage in Self Management Med Activies Readiness to Engage in Self Management Med Activities Anxiety Level Calm Cooperation Cooperative Perception Coherent Interest in Health Problem Asks Questions Education Importance Acknowledges Need Does Patient Smoke tobacco or other No substances Smoking Status Former smoker Is Patient Diabetic Yes Functional Assessment Recent Decline in Ability to Perform Ambulation, Bathing,Lower Body Dressing, Toileting, Transferring Culture/Jainism/Psychiatric Aides Teacher Cultural/Jainism Needs that may affect No Treatment Plan Would you allow our hospital upholstery department supervisor to No meet you for the purpose of spiritual/ emotional support? Psychiatric Aides Teacher to contact place of religious No Teaching: Wound Center *Welcome to the Wound Center -Person Taught Patient,Family -Teaching Method Discussion, Demonstration -Response to teaching Return demonstration, Verbalize understanding WC - Nurse 1 - General Ulcer Measurement Start: 06/19/21 10:21 Freq: Status: Active Protocol: Activity Type Activity Date Activity User E-Sign Co-Sign Detail Recorded Client Recorded Date Recorded By Document 06/19/21 10:21 NATY [id number] 06/19/21 10:49 NATY 06/19/21 10:21 Wound Center Nurse 1 3-right lateral foot -Combined with other wound No -Current Size (cm) - Length 2.5 -Current Size (cm) - Width 4 -Current Size (cm) - Depth 1.3 -Total Square Cm 10.0 -Photo Taken Yes -Epithelialization Medium 34-66% -Tunneling No -Undermining/Tunneling No -Circular Undermining No -Classification - Gonzalez Grading ( Grade 3 Diabetic Ulcer) -Exudate Amt Medium -Exudate Type Serosanguineous -Wound Margin Flat & Intact -Granulation Amt Large (67-100%) -Granulation Quality Red -Slough/Fibrin Yes -Necrosis Amt Small (1-33%) -Necrotic Tissue Type Adherent Slough -Structure Exposed Bone -Texture (Marie-wound Skin Appearance) Assessed, Localized Edema -Moisture (Marie-wound Skin Appearance) Assessed,Dry/ Scaly -Color (Marie-wound Skin Appearance) Assessed -Temperature (Marie-wound Skin No Abnormality Appearance) (Pt Warm) -Tenderness on Palpation (Marie-wound No Skin Appearance) -Ulcer Cleansing Wound Cleanser -Foul Odor after Cleansing No -Anesthetic Used 4% Lidocaine Solution 2-right medial ankle -Combined with other wound No -Current Size (cm) - Length 11.3 -Current Size (cm) - Width 0.8 -Current Size (cm) - Depth 0.3 -Total Square Cm 9.04 -Photo Taken Yes -Epithelialization Medium 34-66% -Tunneling No -Undermining/Tunneling No -Circular Undermining No -Classification - Gonzalez Grading ( Grade 3 Diabetic Ulcer) -Change in Wound Grade/Stage No -Exudate Amt Medium -Exudate Type Serosanguineous -Wound Margin Flat & Intact -Granulation Amt Medium (34-66%) -Granulation Quality Red -Slough/Fibrin Yes -Necrosis Amt Small (1-33%) -Necrotic Tissue Type Adherent Slough -Structure Exposed N/A -Texture (Marie-wound Skin Appearance) No Abnormality, Localized Edema -Moisture (Marie-wound Skin Appearance) Assessed,Dry/ Scaly -Color (Marie-wound Skin Appearance) Assessed -Temperature (Marie-wound Skin No Abnormality Appearance) (Pt Warm) -Tenderness on Palpation (Marie-wound No Skin Appearance) -Ulcer Cleansing Wound Cleanser -Foul Odor after Cleansing No -Anesthetic Used 4% Lidocaine Solution 1-right mid lower leg -Combined with other wound No -Current Size (cm) - Length 38.5 -Current Size (cm) - Width 4.8 -Current Size (cm) - Depth 0.7 -Total Square Cm 184.80 -Photo Taken Yes -Epithelialization Small 1-33% -Tunneling No -Undermining/Tunneling No -Circular Undermining No -Exudate Amt Large -Exudate Type Serosanguineous -Wound Margin Flat & Intact -Granulation Amt Large (67-100%) -Granulation Quality Red -Slough/Fibrin Yes -Necrosis Amt Small (1-33%) -Necrotic Tissue Type Eschar -Structure Exposed Tendon -Texture (Marie-wound Skin Appearance) Assessed, Localized Edema -Moisture (Marie-wound Skin Appearance) Assessed,Dry/ Scaly -Color (Marie-wound Skin Appearance) Assessed -Temperature (Marie-wound Skin No Abnormality Appearance) (Pt Warm) -Tenderness on Palpation (Marie-wound No Skin Appearance) -Ulcer Cleansing Wound Cleanser -Foul Odor after Cleansing No -Anesthetic Used 4% Lidocaine Solution Lower Limb Edema Present Yes Right Calf (cm) 31.5 Right Ankle (cm) 27.5 WC - Nurse 3 - General Ulcer D/C NN Start: 06/19/21 10:21 Freq: Status: Active Protocol: Activity Type Activity Date Activity User E-Sign Co-Sign Detail Recorded Client Recorded Date Recorded By Document 06/19/21 11:47 [facility] [id number] 06/19/21 11:48 [facility] 06/19/21 11:47 Wound Care Nurse 3 3-right lateral foot -Ulcer Cleansing Rinsed/ Irrigated with Saline -Foul Odor after Cleansing No -Primary Dressing Applied Other -Other Dressing moist to dry -Primary Dressing Covered/Secured with Dry Gauze & Roll Gauze, Secured with Tape,Other -Other Covering abd; drsg per naty rn 2-right medial ankle -Ulcer Cleansing Rinsed/ Irrigated with Saline -Foul Odor after Cleansing No -Primary Dressing Applied Other -Other Dressing moist to dry -Primary Dressing Covered/Secured with Dry Gauze & Roll Gauze, Secured with Tape,Other -Other Covering drsg per naty rn, abd 1-right mid lower leg -Ulcer Cleansing Rinsed/ Irrigated with Saline -Foul Odor after Cleansing No -Primary Dressing Applied Other -Other Dressing moist to dry -Primary Dressing Covered/Secured with Dry Gauze & Roll Gauze, Secured with Tape,Other -Other Covering abd, drsg per naty rn Right -Compression Wrap Sebastian Wrap Treatment Response Procedure Tolerated Well Pain Scale: 0-10 Numeric Is Patient Pain Free? Yes WC - Visit Discharge Discharge Condition Stable Ambulatory Status Stretcher Transportation Ambulance Accompanied by daughter Facility Type Pilot Plant Operator Care Facility Assessment/Plan Assessment/Plan (1) 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: CODE(S): L97.512 - 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 (2) Diabetes mellitus with diabetic polyneuropathy: CODE(S): E11.42 - Type 2 diabetes mellitus with diabetic polyneuropathy QUALIFIERS: Diabetes mellitus alf insulin use: without terminal operator use Diabetes mellitus type: type 2 Qualified Code(s): E11.42 - Type 2 diabetes mellitus with diabetic polyneuropathy (3) Charcot's joint of right foot: CODE(S): M14.671 - Charcot's joint, right ankle and foot (4) Hypothyroidism: CODE(S): E03.9 - Hypothyroidism, unspecified PLAN: Patient is a 55-year-old female with history of wide I+ D debridement of right foot and ankle from 05/23/2021 and 05/28/[address] Alexandre and Dr. Gonzalez, podiatric specialists. She has history of MRSA infection. Her wounds are complicated by diabetes mellitus type 2 with peripheral polyneuropathy, Charcot joint deformity of the right foot, and hypothyroidism. Following surgical debridement and recovery in the hospital she was on IV antibiotics vancomycin. Infectious disease has discontinued her vancomycin and is now placed her on daptomycin. She was discharged to a [facility] facility where they have been continuing daily dressing changes of wet-to-dry Dakin's dressing. She has been continuing to apply with her nonweightbearing status to her right lower extremity. And is accompanied by her daughter today to the wound care center for follow-up of her wounds to her right lower extremity. Her daughter states that her facility is only changing her dressing daily and sometimes not at all. I discussed that I would like them to continue the Dakin's dressing to be changed twice a day. Debridement of her ulceration sites was performed today with a #3 curette removing all devitalized tissue, fibrotic tissue, biofilm and slough. Surrounding skin is intact and atrophic. There continues to be complete progression of her wound sites as they are granulating in nicely and they are not demonstrating any localized signs of infection. The medial aspect of the right foot wound is almost approximated. I am prescribing a wound VAC to be applied at the facility for her right lateral foot wound and anterior right lower extremity wound. I feel she would be a good candidate for hyperbaric oxygen dives and this will be considered. I also feel it appropriate that she begin advanced wound care products or skin substitutes at next visit. We are looking to begin TheraSkin to the medial right foot and anterior right lower extremity wounds and the VAC will be placed over the top of these to ensure proper healing and granulation. She is to continue to elevate the right lower extremity and remain in a nonweightbearing status to this extremity. I discussed with her the need to ensure proper diabetic glycemic control and intake of her protein to ensure wound healing. I discussed with the daughter to remain vigilant about her dressing changes, her Motrin and Tylenol and ibuprofen for pain control with the staff and house physician at her [facility] facility. I reviewed and discussed his case today. Debridement was performed today as noted in the clinical panel to all of the ulcer sites. The following work up and care recommendations were made: Dressing: Dakin's wet-to-dry changed twice a day Wash: Soap and water Tissue growth optimization: Offload: Nonweightbearing right lower extremity with elevation via soft pillows Vascular: Edema: Mild Sebastian wrap and elevation for edema control Infection: No localized signs of infection Pain: Continue with Motrin and Tylenol and ibuprofen at her assisted living facility Host factors: History of MRSA and Enterococcus infection. Discussed proper glycemic control and intake of protein to ensure wound healing I answered all the patient's questions. To return to the wound healing center in 1 week or call sooner if the patient has any questions or concerns. The problems addressed require a low medical decision making level which includes two or more minor problems, a stable chronic illness, or an acute uncomplicated illness or injury. The medical decision making level is low. There is noted low risk of morbidity after considering this treatment plan and diagnostic data. Note: [employer] speech recognition shellacker software was used to create portions of this document. Sound-alike and misspelled words, as well as other shellacker errors may be contained in the documentation.
== END 2021-06-23 23:59 ==
LOC: WC 10:19
PROVIDERS: PCP Family Medicine; Visit Provider Student in an Organized Health Care Education/Training Program
DX: E11.621 Type 2 diabetes mellitus with foot ulcer (principal); E11.622 Type 2 diabetes mellitus with other skin ulcer; L97.512 Non-pressure chronic 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; L97.812 Non-pressure chronic ulcer of other part of right lower leg with fat layer exposed; L97.312 Non-pressure chronic ulcer of right ankle with fat layer exposed; E11.610 Type 2 diabetes mellitus with diabetic neuropathic arthropathy; E11.42 Type 2 diabetes mellitus with diabetic polyneuropathy; Z79.4 Long term (current) use of insulin; Z87.891 Personal history of nicotine dependence; E03.9 Hypothyroidism, unspecified; Z79.899 Other long term (current) drug therapy; Z79.890 Hormone replacement therapy; Z86.16 Personal history of COVID-19; B95.62 Methicillin resistant Staphylococcus aureus infection as the cause of diseases classified elsewhere; L08.9 Local infection of the skin and subcutaneous tissue, unspecified; B95.2 Enterococcus as the cause of diseases classified elsewhere
CPT/HCPCS: 11042; 11045; 99213; G0463

== ENCOUNTER 2021-07-17 10:30 | Outpatient (RCR) | payer BC, MEDICAID, SELFPAY ==
[2021-06-24 00:04] VITALS: BP 125/62; PULSE 97; RESP 16; TEMP 35.9; BMI 26.9
[2021-07-03 10:44] VITALS: BP 98/67; PULSE 122; RESP 16; TEMP 36.5; BMI 26.9
--- NOTE | 2021-07-03 12:40 | PCM.WC.PN ---
History of Present Illness Date of Service: 07/03/21 Chief Complaint: right foot ulcer and Right Leg wound History of Wound: This 55-year-old female presents for care of right foot wound. She had surgery at [facility] in November 2020. She denies current fever, chill, nausea, vomiting. She denies delays in wound care and has been applying saline wet-to-dry to help with home health. She relates her bone biopsy that was obtained during her foot surgery was negative for osteomyelitis. She has a PICC placed and saw infectious disease specialist, Dr. Paez at [facility]. She relates she is almost complete with her IV antibiotic course. She is offloading with a surgical shoe. She takes nutritional supplementation including vitamin D and B. She denies claudication. She does have rest paresthesias. She is diabetic with an A1c of over 8%. She also has history of back injuries. Since her last visit, she reports she had thick fluid squirting out of the wound with application of her silver dressing. She was concerned it was infected and called in yesterday. She is advised by nursing staff to go to the emergency room if she thought she had a rapid onset infection. She relates she is scheduled to see her surgeon tomorrow. She did not obtain the previously ordered labs and foot x-rays. She denies current redness or odor. Medical records reviewed from and it is noted she had right foot incision and drainage of fifth metatarsal on 12-04-20. Her surgeon was Dr. Blanchard. She is advised wearing AFO brace. It is noted she started on Bactrim and then after the surgery she was placed on IV antibiotics. She later developed an infection of her right foot ulceration and underwent I&D with wide debridement on 05-23-21 and 05-28-[address] Alexandre and Dr. Gonzalez. Cultures were positive for MRSA and Enterococcus and was placed on IV Vancomycin by infectious disease. She was discharged to a care home facility with instructions for wound vac application to right anterior leg and lateral right foot and wet to dry Dakin's dressings to the right foot. Allergies: Clindamycin Medications cyclo-Benzapril, NuvaRing, Advil, Cytomel, Otter, armodafinil, Singulair, Synthroid, Lyrica Past medical history: diabetes and history of back surgery, ankle surgery, right knee arthroscopy Social history: former smoker and no current tobacco use; quit in 1981 Subjective Subjective This is a 55-year-old female who presents for follow-up of right foot wound and right leg wound. She is status post I&D with wide debridement on 05/23/2021 and 05/28/2021. She has history of MRSA and Enterococcus infection. She is currently in a care home facility following her discharge. The daughter has switched her to a different care home facility due to lack of care. The daughter feels she is getting better care at her current facility and both daughter and patient are happy. She states she is yet to have her wound VAC applied since her last visit. She denies any nausea, vomiting, fever, chills, shortness of breath or other constitutional symptoms. She states that the sites are becoming less painful every day. Objective Data Objective Data Vital Signs: Vital Signs Temp Pulse Resp BP 97.7 F L 122 H 16 98/67 07/03/21 10:44 07/03/21 10:44 07/03/21 10:44 07/03/21 10:44 Weight: 80.286 kg Body Mass Index (BMI) 26.9 Physical Exam Const alert, oriented x3 and no apparent distress General Appearance: cooperative and comfortable HEENT normocephalic Eyes General Eye: normal appearance of both eyes Neck General: normal visual inspection Lymph Lymphatic: no lymphadenopathy noted and no lymphedema noted Resp normal respiratory effort Cardio regular rate and regular rhythm Skin Skin Narrative: Ulceration sites to the anterior right lower extremity, lateral right foot, and medial right foot. Surrounding skin is intact, soft and supple, and atrophic. Wound Narrative: All wounds are secondary to previous surgical debridement for abscess of the foot and anterior compartment of the lower extremity. Lateral foot ulceration right foot demonstrates improvement and granulating in nicely. There is mixed fibrotic and granular tissue with no localized erythema, no purulent drainage, no malodor or other localized signs of infection. Medial right foot ulceration granulating in well with the superior portion nearly approximated, the central portion approximated, and the distal portion approximated. There is dried yellow crusting about the margins of the cicatrix. There is no erythema, purulent drainage, malodor or other localized signs of infection. Right lower extremity anterior leg wound is granulating in with less exposed tendon of the extensor hallucis longus and anterior tibial tendon. Ulceration site is not as deep as previous visits. Anterior tibial tendon does show some signs of desiccation with some darkened discoloration distally. Wound bed is 100% granular with NuSpin full texture proximally and scant fibrotic tissue distally. Ulceration site demonstrates no surrounding erythema, no purulent drainage, no malodor, no red streaking up the leg, or other localized signs of infection. Debridement Note Debridement Note Wound debrided: Right anterior lower extremity, lateral foot, medial right foot Laterality: Right Wound Grade/Stage: Gonzalez stage II Type of Debridement: Excisional debridement Anesthesia Used: 4% Lidocaine Solution and Cetacaine Depth: in the subcutaneous layer Percentage of wound debrided: 100 Instrument Used: 3mm curette and #15 blade Tissue Removed: Fibrous, devitalized subcutaneous, biofilm, slough Severity: Fat Layer Exposed Amount of bleeding with debridement: Mild Bleeding Controlled with: Pressure Patient tolerated procedure: Patient tolerated procedure well Post-Debridement Measurements and Additional Note: Post-Debridement Measurements/Treatment - Nurse 1 - General Ulcer Assessment Start: 07/03/21 10:44 Freq: Status: Active Protocol: RUKHSANA Activity Type Activity Date Activity User E-Sign Co-Sign Detail Recorded Client Recorded Date Recorded By Document 07/03/21 10:44 NATY [id number] 07/03/21 11:02 NATY 07/03/21 10:44 - Today's Visit Information Type of service 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 ) Arrival Mode Ambulatory, Wheelchair Patient Identification Verified (Name & Yes ) Patient Requires Transmission-Based No Precautions Finger Stick Blood Sugar(mg/dl) (if 119 indicated): Blood Sugar Stated by Patient Height and Weight Body Mass Index (BMI) 26.9 BMI Classification Overweight Vital Signs Temperature (97.8 F-99.1 F) 97.7 F L Temperature Source Temporal Pulse Rate (60-100) 122 H Pulse Location Monitor Respiratory Rate (12-18) 16 Respiratory rate source Observation Blood Pressure (90/60-120/80) 98/67 Blood Pressure Mean (mm Hg) 77 Source Monitor Position Sitting Blood Pressure Location Left Arm History Since Last Visit- (Skip if this is Patient's initial visit) Have you changed medications since your No last visit? Any new allergies or adverse reactions No Had a fall/change in ADL's that may No increase risk of falls Signs or symptoms of abuse and/or No neglect since last visit Have you been in the hospital since your No last visit? Has dressing in place as prescribed Yes Has compression in place as prescribed Yes Has offloadiing in place as prescribed Yes Experienced any changes in pain level or No management Left Footwear Regular Shoe Right Footwear No Footwear Pain Scale: 0-10 Numeric Is Patient Pain Free? Yes WC - Nurse 1 - General Ulcer Measurement Start: 07/03/21 10:44 Freq: Status: Active Protocol: Activity Type Activity Date Activity User E-Sign Co-Sign Detail Recorded Client Recorded Date Recorded By Document 07/03/21 10:44 NATY [id number] 07/03/21 11:02 NATY 07/03/21 10:44 Wound Center Nurse 1 #4 R LATERAL FOOT -Combined with other wound No -Current Size (cm) - Length 2.0 -Current Size (cm) - Width 3.5 -Current Size (cm) - Depth 0.2 -Total Square Cm 7.00 -Photo Taken No -Epithelialization Small 1-33% -Tunneling No -Undermining/Tunneling No -Circular Undermining No -Exudate Amt Small -Exudate Type Serosanguineous -Wound Margin Flat & Intact -Granulation Amt Medium (34-66%) -Granulation Quality Pale,[place] -Slough/Fibrin Yes -Necrosis Amt Large (67-100%) -Necrotic Tissue Type Eschar -Structure Exposed N/A -Texture (Marie-wound Skin Appearance) Assessed, Localized Edema -Moisture (Marie-wound Skin Appearance) Assessed,Dry/ Scaly -Color (Marie-wound Skin Appearance) Assessed -Temperature (Marie-wound Skin No Abnormality Appearance) (Pt Warm) -Tenderness on Palpation (Marie-wound No Skin Appearance) -Ulcer Cleansing Rinsed/ Irrigated with Saline -Foul Odor after Cleansing No -Anesthetic Used 4% Lidocaine Solution #3 R MEDIAL ANKLE -Combined with other wound No -Current Size (cm) - Length 0.1 -Current Size (cm) - Width 0.1 -Current Size (cm) - Depth 0.1 -Total Square Cm 0.01 -Photo Taken No -Epithelialization Large 67-100% -Tunneling No -Undermining/Tunneling No -Circular Undermining No -Exudate Amt None Present -Wound Margin Indistinct, Non -Visible -Granulation Amt None Present (0 %) -Slough/Fibrin No -Necrosis Amt Large (67-100%) -Necrotic Tissue Type Adherent Slough -Structure Exposed N/A -Texture (Marie-wound Skin Appearance) Crepitus, Localized Edema -Moisture (Marie-wound Skin Appearance) Assessed,Dry/ Scaly -Color (Marie-wound Skin Appearance) Assessed -Temperature (Marie-wound Skin No Abnormality Appearance) (Pt Warm) -Tenderness on Palpation (Marie-wound No Skin Appearance) -Ulcer Cleansing Rinsed/ Irrigated with Saline -Foul Odor after Cleansing Yes -Anesthetic Used 5% Lidocaine Gel #2 R MID LOWER LEG -Combined with other wound No -Current Size (cm) - Length 37.8 -Current Size (cm) - Width 4.5 -Current Size (cm) - Depth 0.3 -Total Square Cm 170.10 -Photo Taken No -Epithelialization Small 1-33% -Tunneling No -Circular Undermining No -Exudate Amt Large -Exudate Type Serosanguineous -Wound Margin Flat & Intact -Granulation Amt Large (67-100%) -Granulation Quality Red -Slough/Fibrin Yes -Necrosis Amt Small (1-33%) -Necrotic Tissue Type Adherent Slough -Structure Exposed Tendon,Muscle -Texture (Marie-wound Skin Appearance) Assessed, Localized Edema -Moisture (Marie-wound Skin Appearance) Assessed,Dry/ Scaly -Color (Marie-wound Skin Appearance) Assessed -Temperature (Marie-wound Skin No Abnormality Appearance) (Pt Warm) -Tenderness on Palpation (Marie-wound Yes Skin Appearance) -Ulcer Cleansing Rinsed/ Irrigated with Saline -Foul Odor after Cleansing No -Anesthetic Used 4% Lidocaine Solution Lower Limb Edema Present NA Assessment/Plan Assessment/Plan (1) Non-pressure 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: CODE(S): L97.212 - Non-pressure 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 (2) 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 Jacinto and Dr. Patrick bah, podiatric specialist. She has history of MRSA infection. Her wounds are located by diabetes mellitus type 2 with peripheral polyneuropathy, Charcot joint deformity of the right foot, and hypothyroidism. Following surgical debridement and recovery in the hospital she was on IV antibiotics vancomycin. Infectious disease has discontinued her vancomycin is now placed her on daptomycin. She was discharged to a care home facility where they have been continuing daily dressing changes wet-to-dry Dakin's dressing. Patient and her daughter were unhappy with that nursing facility and have changed to a different care home facility where they are much happier with her care. She has been compliant with her nonweightbearing status to her right lower extremity. She is accompanied by her daughter today to the wound care center for follow-up of her wounds to her right lower extremity. Her daughter stated that her facility was only changing her dressings daily and sometimes not at all and has not applied the wound VAC that was ordered at last visit. Because of this they have switched to a different nursing facility where they are much happier with her care. VAC orders are sent with her to apply the wound VAC to the right anterior leg and right lateral foot wounds when she returns today. Debridement of ulceration sites was performed today with a #3 curette and a #15 blade removing all devitalized tissue, fibrotic tissue, biofilm and slough. This was performed to prepare wound bed site for recipient of a skin substitute graft. The surrounding skin is intact and atrophic. The medial aspect of the right foot wound is nearly approximated. following debridement of the sites a TheraSkin graft 6 cm? was applied to the right lateral foot and a TheraSkin 116 cm? graft was applied to the anterior right leg. Mastisol was used to anchor Adaptic was placed over the grafts to the margins. Adaptic reinforced with Steri-Strips. A dry sterile dressing was applied to the right lower extremity following placement of grafts. This dressing will be removed and a wound VAC will be placed over the Adaptic to the right anterior leg wound and lateral foot wound when she returns to her care home facility today to ensure proper healing and granulation and acceptance of graft. She is to continue to elevate the right lower extremity and remain in nonweightbearing status to this extremity. I discussed with patient and daughter that I believe she would be a good candidate for hyperbaric dive therapy. We are currently awaiting approval for HBO dives. Patient and daughter are open to receiving HBO therapy. I discussed with her the need to ensure proper diabetic glycemic control and intake of protein to ensure wound healing and graft take. I reviewed and discussed his case today. Debridement was performed today as noted in the clinical panel to all of the ulcer sites. The following work up and care recommendations were made: Dressing: Leave to TheraSkin graft in place with Adaptic covering. Apply wound VAC over site right anterior leg wound and lateral foot wound. Wound VAC to be changed every 72 hours and set at 125 mmHg of intermittent pressure. Wash: Do not wash Tissue growth optimization: TheraSkin skin substitute right anterior leg wound and lateral foot wound Offload: Nonweightbearing right lower extremity with elevation via soft pillows Vascular: Edema: Wound VAC will aid in edema control along with elevation of the lower extremity. Infection: No localized signs of infection Pain: Continue with Motrin and Tylenol extra strength at her assisted living facility Host factors: History of MRSA and Enterococcus infection. Diabetes type 2 with peripheral polyneuropathy, discussed proper glycemic control and intake of protein to ensure wound healing I answered all the patient's questions. To return to the wound healing center in 1 week or call sooner if the patient has any questions or concerns. Note: [employer] speech recognition game and fish protector software was used to create portions of this document. Sound-alike and misspelled words, as well as other game and fish protector errors may be contained in the documentation.
[2021-07-10 10:26] VITALS: BP 125/73; PULSE 112; RESP 16; BMI 26.9
--- NOTE | 2021-07-10 11:42 | PN.PCM_ITS ---
History of Present Illness Date of Service: 07/10/21 Chief Complaint: right foot ulcer and Right Leg wound History of Wound: This 55-year-old female presents for care of right foot wound. She had surgery at [facility] in November 2020. She denies current fever, chill, nausea, vomiting. She denies delays in wound care and has been applying saline wet-to-dry to help with home health. She relates her bone biopsy that was obtained during her foot surgery was negative for osteomyelitis. She has a PICC placed and saw infectious disease specialist, Dr. Paez at [facility]. She relates she is almost complete with her IV antibiotic course. She is offloading with a surgical shoe. She takes nutritional supplementation including vitamin D and B. She denies claudication. She does have rest paresthesias. She is diabetic with an A1c of over 8%. She also has history of back injuries. Since her last visit, she reports she had thick fluid squirting out of the wound with application of her silver dressing. She was concerned it was infected and called in yesterday. She is advised by nursing staff to go to the emergency room if she thought she had a rapid onset infection. She relates she is scheduled to see her surgeon tomorrow. She did not obtain the previously ordered labs and foot x-rays. She denies current redness or odor. Medical records reviewed from and it is noted she had right foot incision and drainage of fifth metatarsal on 12-04-20. Her surgeon was Dr. Blanchard. She is advised wearing AFO brace. It is noted she started on Bactrim and then after the surgery she was placed on IV antibiotics. She later developed an infection of her right foot ulceration and underwent I&D with wide debridement on 05-23-21 and 05-28-[address] Alexandre and Dr. Gonzalez. Cultures were positive for MRSA and Enterococcus and was placed on IV Vancomycin by infectious disease. She was discharged to a residential facility with instructions for wound vac application to right anterior leg and lateral right foot and wet to dry Dakin's dressings to the right foot. Allergies: Clindamycin Medications cyclo-Benzapril, NuvaRing, Advil, Cytomel, [place], armodafinil, Singulair, Synthroid, Lyrica Past medical history: diabetes and history of back surgery, ankle surgery, right knee arthroscopy Social history: former smoker and no current tobacco use; quit in 1981 Subjective Subjective This is a 55-year-old female who presents to the wound care center for follow-up of right anterior lower extremity wound, right lateral foot wound, and right medial foot wound status post incision and drainage of deep abscess and cellulitis on 06/13 and 05/28/2021. She states that her insurance has stopped paying for the assisted living facility and that she would be discharged home this Wednesday. She continues to deny any nausea, vomiting, chills, fever, shortness of breath, or other constitutional symptoms. She states that the site is becoming less painful each day and she is pleased with her TheraSkin graft and her healing process today. Objective Data Objective Data Vital Signs: Vital Signs Temp Pulse Resp BP 97.7 F L 112 H 16 125/73 H 07/03/21 10:44 07/10/21 10:26 07/10/21 10:26 07/10/21 10:26 Oxygen Delivery Method Room Air Weight: 80.286 kg Body Mass Index (BMI) 26.9 Physical Exam Const alert, oriented x3 and no apparent distress General Appearance: cooperative and comfortable HEENT normocephalic Eyes General Eye: normal appearance of both eyes Neck General: normal visual inspection Lymph Lymphatic: no lymphadenopathy noted and no lymphedema noted Resp normal respiratory effort Cardio regular rate and regular rhythm Skin Skin Narrative: Ulceration sites to the anterior right lower extremity, lateral right foot, and medial right foot. Surrounding skin is intact, soft and supple, and atrophic. Wound Narrative: All wounds are secondary to previous surgical debridement for abscess of the foot and anterior compartment of the lower extremity. Lateral foot ulceration right foot demonstrates improvement and granulating in nicely. Grafting product is intact. There is granular tissue with no localized erythema, no purulent drainage, no malodor or other localized signs of infection. Medial right foot ulceration granulating in well with the superior portion nearly approximated, the central portion approximated, and the distal portion approximated. There is dried yellow crusting about the margins of the cicatrix. There is no erythema, purulent drainage, malodor or other localized signs of infection. Right lower extremity anterior leg wound is granulating in with less exposed tendon of the extensor hallucis longus and anterior tibial tendon. Ulceration site is not as deep as previous visits. Anterior tibial tendon does show some signs of desiccation with some darkened discoloration distally -improved post debridement. Wound bed is 100% granular with goose pimple texture proximally and scant fibrotic tissue distally. Grafting product intact. Ulceration site demonstrates no surrounding erythema, no purulent drainage, no malodor, no red streaking up the leg, or other localized signs of infection. Debridement Note Debridement Note No debridement was completed: No debridement was completed today Post-Debridement Measurements and Additional Note: Post-Debridement Measurement s/Treatment - Nurse 1 - General Ulcer Assessment Start: 07/03/21 10:44 Freq: Status: Active Protocol: RUKHSANA Activity Type Activity Date Activity User E-Sign Co-Sign Detail Recorded Client Recorded Date Recorded By Document 07/03/21 10:44 [id number] 07/03/21 11:02 Document 07/10/21 10:26 [facility] [id number] 07/10/21 10:45 [facility] 07/03/21 07/10/21 10:44 10:26 - Today's Visit Information Type of service Follow-up Visit Follow-up Visit (Physician/SHUTTLE HAND (Physician/SHUTTLE HAND ) ) Arrival Mode Ambulatory, Wheelchair Wheelchair Transfer Assistance Other Transfer Assist (Other) 2 stand by assist Accompanied by daughter Patient Identification Verified (Name & Yes Yes ) Patient Requires Transmission-Based No No Precautions Finger Stick Blood Sugar(mg/dl) (if 119 161 indicated): Blood Sugar Stated by Stated by Patient Patient Height and Weight Body Mass Index (BMI) 26.9 26.9 BMI Classification Overweight Overweight Vital Signs Temperature (97.8 F-99.1 F) 97.7 F L Temperature Source Temporal Pulse Rate (60-100) 122 H 112 H Pulse Location Monitor Monitor Respiratory Rate (12-18) 16 16 Respiratory rate source Observation Observation Oxygen Delivery Method Room Air Blood Pressure (90/60-120/80) 98/67 125/73 H Blood Pressure Mean (mm Hg) 77 90 Source Monitor Monitor Position Sitting Sitting Blood Pressure Location Left Arm Right Arm History Since Last Visit- (Skip if this is Patient's initial visit) Have you changed medications since your No No last visit? Any new allergies or adverse reactions No No Had a fall/change in ADL's that may No No increase risk of falls Signs or symptoms of abuse and/or No No neglect since last visit Have you been in the hospital since your No No last visit? Has dressing in place as prescribed Yes Yes Has compression in place as prescribed Yes Yes Has offloadiing in place as prescribed Yes Yes Experienced any changes in pain level or No No management Left Footwear Regular Shoe Regular Shoe Right Footwear No Footwear Other Footwear (Comment) Other Footwear sebastian only to rle Pain Scale: 0-10 Numeric Is Patient Pain Free? Yes Yes WC - Nurse 1 - General Ulcer Measurement Start: 07/03/21 10:44 Freq: Status: Active Protocol: Activity Type Activity Date Activity User E-Sign Co-Sign Detail Recorded Client Recorded Date Recorded By Document 07/03/21 10:44 [id number] 07/03/21 11:02 Document 07/10/21 10:26 [facility] [id number] 07/10/21 10:45 [facility] 07/03/21 07/10/21 10:44 10:26 Wound Center Nurse 1 #4 R LATERAL FOOT -Combined with other wound No No -Current Size (cm) - Length 2.0 0.1 -Current Size (cm) - Width 3.5 0.1 -Current Size (cm) - Depth 0.2 0.1 -Total Square Cm 7.00 0.01 -Photo Taken No No -Epithelialization Small 1-33% None Present -Tunneling No No -Undermining/Tunneling No No -Circular Undermining No No -Exudate Amt Small Medium -Exudate Type Serosanguineous Serosanguineous -Wound Margin Flat & Intact Distinct, Outline Attached -Granulation Amt Medium (34-66%) Medium (34-66%) -Granulation Quality Pale,[place],Red -Slough/Fibrin Yes -Necrosis Amt Large (67-100%) -Necrotic Tissue Type Eschar Adherent Slough -Structure Exposed N/A N/A -Texture (Marie-wound Skin Appearance) Assessed, Assessed, Localized Edema Scarring -Moisture (Marie-wound Skin Appearance) Assessed,Dry/ No Abnormality, Scaly Assessed -Color (Marie-wound Skin Appearance) Assessed No Abnormality, Assessed -Temperature (Amrie-wound Skin No Abnormality No Abnormality Appearance) (Pt Warm) (Pt Warm) -Tenderness on Palpation (Marie-wound No Yes Skin Appearance) -Ulcer Cleansing Rinsed/ Soap and Water Irrigated with Saline -Foul Odor after Cleansing No No -Anesthetic Used 4% Lidocaine 4% Lidocaine Solution Solution -Wound Comment(s) theraskin covered wound obscured #3 R MEDIAL ANKLE -Combined with other wound No -Current Size (cm) - Length 0.1 -Current Size (cm) - Width 0.1 -Current Size (cm) - Depth 0.1 -Total Square Cm 0.01 -Photo Taken No -Epithelialization Large 67-100% -Tunneling No -Undermining/Tunneling No -Circular Undermining No -Exudate Amt None Present -Wound Margin Indistinct, Non -Visible -Granulation Amt None Present (0 %) -Slough/Fibrin No -Necrosis Amt Large (67-100%) -Necrotic Tissue Type Adherent Slough -Structure Exposed N/A -Texture (Marie-wound Skin Appearance) Crepitus, Localized Edema -Moisture (Marie-wound Skin Appearance) Assessed,Dry/ Scaly -Color (Marie-wound Skin Appearance) Assessed -Temperature (Marie-wound Skin No Abnormality Appearance) (Pt Warm) -Tenderness on Palpation (Marie-wound No Skin Appearance) -Ulcer Cleansing Rinsed/ Irrigated with Saline -Foul Odor after Cleansing Yes -Anesthetic Used 5% Lidocaine Gel #2 R MID LOWER LEG -Combined with other wound No No -Current Size (cm) - Length 37.8 34 -Current Size (cm) - Width 4.5 4.3 -Current Size (cm) - Depth 0.3 0.1 -Total Square Cm 170.10 146.2 -Photo Taken No No -Epithelialization Small 1-33% None Present -Tunneling No No -Undermining/Tunneling No -Circular Undermining No No -Exudate Amt Large Medium -Exudate Type Serosanguineous Serosanguineous -Wound Margin Flat & Intact Distinct, Outline Attached -Granulation Amt Large (67-100%) Small (1-33%) -Granulation Quality Red N/A -Slough/Fibrin Yes Yes -Necrosis Amt Small (1-33%) Small (1-33%) -Necrotic Tissue Type Adherent Slough Adherent Slough -Structure Exposed Tendon,Muscle N/A -Texture (Marie-wound Skin Appearance) Assessed, No Abnormality, Localized Edema Assessed -Moisture (Marie-wound Skin Appearance) Assessed,Dry/ No Abnormality, Scaly Assessed -Color (Marie-wound Skin Appearance) Assessed No Abnormality, Assessed -Temperature (Marie-wound Skin No Abnormality No Abnormality Appearance) (Pt Warm) (Pt Warm) -Tenderness on Palpation (Marie-wound Yes No Skin Appearance) -Ulcer Cleansing Rinsed/ Soap and Water Irrigated with Saline -Foul Odor after Cleansing No No -Anesthetic Used 4% Lidocaine 4% Lidocaine Solution Solution Lower Limb Edema Present NA WC - Nurse 2 - General Ulcer CM Notes Start: 07/03/21 10:44 Freq: Status: Active Protocol: Activity Type Activity Date Activity User E-Sign Co-Sign Detail Recorded Client Recorded Date Recorded By Document 07/03/21 13:00 PL [id number] 07/03/21 13:12 PL 07/03/21 13:00 Wound Center Nurse 2 #4 R LATERAL FOOT -Time 11:25 -Correct Patient Yes -Correct Side, Site, Position Yes -Correct Procedure Yes -Procedure Performed Yes -Type of Procedure Debridement -Clinical Debridement Subcutaneous -Tissue Removed Subcutaneous -Post Debridement (cm) - Length 2.0 -Post Debridement (cm) - Width 3.5 -Post Debridement (cm) - Depth 0.2 -Total Square (Post) (cm) 7.00 -Area of Debridement (cm) - Length 2.0 -Area of Debridement (cm) - Width 3.5 -Total Square (Area) (cm) 7.00 -Tunneling No -Undermining/Tunneling No -Circular Undermining No -Wound/Ulcer Outcome Not Healed -Ulcer Cleansing Rinsed/ Irrigated with Saline -Foul Odor after Cleansing No -Bioengineered Tissue Yes -Type of Bioengineered Tissue Theraskin -Expiration Date 07/23/24 -Product Lot Number [id number] -Percent Used 100 -Bleeding Controlled with Pressure -Treatment Response Procedure Tolerated Well -Debridement - Subq, 1st 20sq cm No -Apply Skin Sub - 1st 25 sq cm - Feet 1 -Theraskin (per sq cm) 6 #3 R MEDIAL ANKLE -Procedure Performed No -Wound/Ulcer Outcome Healed- Epithelialized #2 R MID LOWER LEG -Time 11:25 -Correct Patient Yes -Correct Side, Site, Position Yes -Correct Procedure Yes -Procedure Performed Yes -Type of Procedure Debridement -Clinical Debridement Subcutaneous -Tissue Removed Subcutaneous -Post Debridement (cm) - Length 37.8 -Post Debridement (cm) - Width 4.5 -Post Debridement (cm) - Depth 0.3 -Total Square (Post) (cm) 170.10 -Area of Debridement (cm) - Length 37.8 -Area of Debridement (cm) - Width 4.5 -Total Square (Area) (cm) 170.10 -Tunneling No -Undermining/Tunneling No -Circular Undermining No -Wound/Ulcer Outcome Not Healed -Ulcer Cleansing Rinsed/ Irrigated with Saline -Foul Odor after Cleansing No -Bioengineered Tissue Yes -Type of Bioengineered Tissue Theraskin -Expiration Date 01/07/25 -Product Lot Number [id number] -Percent Used 100 -Bleeding Controlled with Pressure -Treatment Response Procedure Tolerated Well -Debridement - Subq, 1st 20sq cm No -Apply Skin Sub - each addt'l 25 sq cm 3 - Legs -Apply Skin Sub - 1st 100 sq cm - Legs 1 -Theraskin (per sq cm) 116 Pain Scale: 0-10 Numeric Is Patient Pain Free? Yes - Nurse 3 - General Ulcer D/C NN Start: 07/03/21 10:44 Freq: Status: Active Protocol: Activity Type Activity Date Activity User E-Sign Co-Sign Detail Recorded Client Recorded Date Recorded By Document 07/03/21 13:00 PL [id number] 07/03/21 13:12 PL Document 07/10/21 11:27 [facility] [id number] 07/10/21 11:29 [facility] 07/03/21 07/10/21 13:00 11:27 Pain Scale: 0-10 Numeric Is Patient Pain Free? Yes Yes Wound Care Nurse 3 #4 R LATERAL FOOT -Primary Dressing Covered/Secured with Dry Gauze & Roll Gauze, Secured with Tape,Other -Other Covering dry dressing/ abd pads #3 R MEDIAL ANKLE -Primary Dressing Covered/Secured with Dry Gauze & Roll Gauze, Secured with Tape #2 R MID LOWER LEG -Ulcer Cleansing Rinsed/ Irrigated with Saline -Foul Odor after Cleansing No -Primary Dressing Covered/Secured with Dry Gauze & Dry Gauze & Roll Gauze, Roll Gauze, Secured with Secured with Tape Tape,Other -Other Covering abds, dry dressing Right -Compression Wrap Sebastian Wrap Treatment Response Procedure Tolerated Well WC - Visit Discharge Discharge Condition Stable Stable Ambulatory Status Wheelchair Wheelchair Transportation Private Auto Accompanied by daughter Facility Type Special Agent In Charge Care Facility Assessment/Plan Assessment/Plan (1) Non-pressure 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: CODE(S): L97.212 - Non-pressure 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 (2) 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 Jacinto and Dr. Gonzalez, podiatric specialist. She has history of MRSA infection. Her wounds are located by diabetes mellitus type 2 with peripheral polyneuropathy, Charcot joint deformity of the right foot, and hypothyroidism. Following surgical debridement and recovery in the hospital she was on IV antibiotics vancomycin. Infectious disease has discontinued her vancomycin is now placed her on daptomycin. She was discharged to a residential facility where they have been continuing daily dressing changes wet-to-dry Dakin's dressing. Patient and her daughter were unhappy with that nursing facility and have changed to a different residential facility where they are much happier with her care. Her current nursing facility has informed her 07/07/2021 that her insurance has stopped paying for her assisted living facility and that she would be being discharged on 07/11/2021 home. She has been compliant with her nonweightbearing status to her right lower extremity. She is accompanied by her daughter today to the wound care center for follow-up of her wounds to her right lower extremity. Her current assisted living facility is continuing to apply the wound VAC with changes every 3 days (72hrs). VAC to the right anterior leg and right lateral foot wounds to be applied when she returns today. Nursing to inquire about home health to assist with VAC changes. Skin substitute graft is intact to the right lower extremity anterior wound and will right lateral foot wound. TheraSkin graft is taking well to the wound bed and wound margins. Her wounds demonstrate no localized signs of infection. The surrounding skin is intact and atrophic. The medial right foot wound is nearly approximated. Mastisol was used to anchor Adaptic touch was placed over the grafts to the margins. Adaptic touch reinforced with Steri-Strips. A dry sterile dressing was applied to the right lower extremity following placement of grafts. This dressing will be removed and a wound VAC will be placed over the Adaptic touch to the right anterior leg wound and lateral foot wound when she returns to her residential facility today to ensure proper healing and granulation and acceptance of graft. She is to continue to elevate the right lower extremity and remain in nonweightbearing status to this extremity. I discussed with patient and daughter that I believe she would be a good candidate for hyperbaric dive therapy. Her right lower extremity anterior wound is a Gonzalez grade 3 and her right lateral foot wound is a Gonzalez grade 3, right medial foot wound Gonzalez grade 3. She underwent surgical debridement of all 3 Gonzalez grade 3 wounds to the right lower extremity on 05/23/2021 to drain deep abscess and debride necrotic tissue and tendon. She underwent a second debridement procedure on 05/28/2021 to drain deep anterior compartment abscess of the right lower extremity. She had undergone 8 weeks of IV vancomycin and her PICC line was pulled yesterday 07/09/2021. There is no localized signs of infection to any of the right foot wounds. Grafting product is intact to the ri ght anterior wound and right lateral foot wound. We are currently awaiting approval for HBO dives. Patient and daughter are open to receiving HBO therapy. I discussed with her the need to ensure proper diabetic glycemic control and intake of protein to ensure wound healing and graft take. I reviewed and discussed his case today. Debridement was performed today as noted in the clinical panel to all of the ulcer sites. The following work up and care recommendations were made: Dressing: Leave to TheraSkin graft in place with Adaptic covering. Apply wound VAC over site right anterior leg wound and lateral foot wound. Wound VAC to be changed every 72 hours and set at 125 mmHg of intermittent pressure. Wash: Do not wash Tissue growth optimization: TheraSkin skin substitute right anterior leg wound and lateral foot wound Offload: Nonweightbearing right lower extremity with elevation via soft pillows Vascular: Edema: Wound VAC will aid in edema control along with elevation of the lower e xtremity. Infection: No localized signs of infection Pain: Continue with Motrin and Tylenol extra strength at her assisted living facility Host factors: History of MRSA and Enterococcus infection. Diabetes type 2 with peripheral polyneuropathy, discussed proper glycemic control and intake of protein to ensure wound healing I answered all the patient's questions. To return to the wound healing center in 1 week or call sooner if the patient has any questions or concerns. Note: Qlue speech recognition photography teacher software was used to create portions of this document. Sound-alike and misspelled words, as well as other photography teacher errors may be contained in the documentation.
[2021-07-17 10:37] VITALS: BP 109/70; PULSE 116; TEMP 36.1; BMI 26.9
--- NOTE | 2021-07-17 10:46 | PN.PCM_ITS ---
History of Present Illness Date of Service: 07/17/21 Chief Complaint: right foot ulcer and Right Leg wound History of Wound: This 55-year-old female presents for care of right foot wound. She had surgery at [facility] in November 2020. She denies current fever, chill, nausea, vomiting. She denies delays in wound care and has been applying saline wet-to-dry to help with home health. She relates her bone biopsy that was obtained during her foot surgery was negative for osteomyelitis. She has a PICC placed and saw infectious disease specialist, Dr. Paez at [facility]. She relates she is almost complete with her IV antibiotic course. She is offloading with a surgical shoe. She takes nutritional supplementation including vitamin D and B. She denies claudication. She does have rest paresthesias. She is diabetic with an A1c of over 8%. She also has history of back injuries. Since her last visit, she reports she had thick fluid squirting out of the wound with application of her silver dressing. She was concerned it was infected and called in yesterday. She is advised by nursing staff to go to the emergency room if she thought she had a rapid onset infection. She relates she is scheduled to see her surgeon tomorrow. She did not obtain the previously ordered labs and foot x-rays. She denies current redness or odor. Medical records reviewed from and it is noted she had right foot incision and drainage of fifth metatarsal on 12-04-20. Her surgeon was Dr. Blanchard. She is advised wearing AFO brace. It is noted she started on Bactrim and then after the surgery she was placed on IV antibiotics. She later developed an infection of her right foot ulceration and underwent I&D with wide debridement on 05-23-21 and 05-28-[address] Alexandre and Dr. Gonzalez. Cultures were positive for MRSA and Enterococcus and was placed on IV Vancomycin by infectious disease. She was discharged to a residential facility with instructions for wound vac application to right anterior leg and lateral right foot and wet to dry Dakin's dressings to the right foot. Allergies: Clindamycin Medications cyclo-Benzapril, NuvaRing, Advil, Cytomel, [place], armodafinil, Singulair, Synthroid, Lyrica Past medical history: diabetes and history of back surgery, ankle surgery, right knee arthroscopy Social history: former smoker and no current tobacco use; quit in 1981 Subjective Subjective This is a 55-year-old female who presents to the wound care center for follow-up of right anterior lower extremity wound, right lateral foot wound, and right medial foot wound status post incision and drainage of deep abscess and cellulitis on 06/13 and 05/28/2021. She states that her insurance has stopped paying for the assisted living facility and that she would be discharged home. She continues to deny any nausea, vomiting, chills, fever, shortness of breath, or other constitutional symptoms. She states that the site is becoming less painful each day and she is pleased with her TheraSkin graft and her healing process today. She also asks for renewal of her Handicap placard today as it soon expires. Objective Data Objective Data Vital Signs: Vital Signs Temp Pulse Resp BP 96.9 F L 116 H 16 109/70 07/17/21 10:37 07/17/21 10:37 07/10/21 10:26 07/17/21 10:37 Oxygen Delivery Method Room Air Weight: 80.286 kg Body Mass Index (BMI) 26.9 Physical Exam Const alert, oriented x3 and no apparent distress General Appearance: cooperative and comfortable HEENT normocephalic Eyes General Eye: normal appearance of both eyes Neck General: normal visual inspection Lymph Lymphatic: no lymphadenopathy noted and no lymphedema noted Resp normal respiratory effort Cardio regular rate and regular rhythm Skin Skin Narrative: Ulceration sites to the anterior right lower extremity, lateral right foot, and medial right foot. Surrounding skin is intact, soft and supple, and atrophic. Wound Narrative: All wounds are secondary to previous surgical debridement for abscess of the foot and anterior compartment of the lower extremity. Lateral foot ulceration right foot demonstrates improvement and granulating in nicely. Grafting product is intact. There is granular tissue with no localized erythema, no purulent drainage, no malodor or other localized signs of infection. Medial right foot ulceration granulating in well with the superior portion nearly approximated, the central portion approximated, and the distal portion approximated. There is dried yellow crusting about the margins of the cicatrix. There is no erythema, purulent drainage, malodor or other localized signs of infection. Right lower extremity anterior leg wound is granulating in with less exposed tendon of the extensor hallucis longus and anterior tibial tendon. Ulceration site is not as deep as previous visits. Anterior tibial tendon does show some signs of desiccation with some darkened discoloration distally -improved post debridement. Wound bed is 100% granular with goose pimple texture proximally and scant fibrotic tissue distally. Grafting product intact. Ulceration site demonstrates no surrounding erythema, no purulent drainage, no malodor, no red streaking up the leg, or other localized signs of infection. Debridement Note Debridement Note Wound debrided: Right anterior lower extremity Laterality: Right Wound Grade/Stage: Gonzalez stage III Type of Debridement: Excisional debridement Anesthesia Used: Cetacaine Depth: in the subcutaneous layer Percentage of wound debrided: 100 Instrument Used: 3mm curette and #15 blade Tissue Removed: Fibrous, devitalized subcutaneous, biofilm, slough Severity: Fat Layer Exposed Amount of bleeding with debridement: Mild Bleeding Controlled with: Pressure Patient tolerated procedure: Patient tolerated procedure well Post-Debridement Measurements and Additional Note: Post-Debridement Measurem ents/Treatment - Nurse 1 - General Ulcer Assessment Start: 07/03/21 10:44 Freq: Status: Active Protocol: RUKHSANA Activity Type Activity Date Activity User E-Sign Co-Sign Detail Recorded Client Recorded Date Recorded By Document 07/03/21 10:44 [id number] 07/03/21 11:02 Document 07/10/21 10:26 [facility] [id number] 07/10/21 10:45 [facility] Document 07/17/21 10:37 PA [id number] 07/17/21 10:40 PA 07/03/21 07/10/21 07/17/21 10:44 10:26 10:37 - Today's Visit Information Type of service Follow-up Visit Follow-up Visit Follow-up Visit (Physician/FITNESS WORKER (Physician/FITNESS WORKER (Physician/FITNESS WORKER ) ) ) Arrival Mode Ambulatory, Wheelchair Wheelchair Wheelchair Transfer Assistance Other Transfer Assist (Other) 2 stand by assist Accompanied by daughter Patient Identification Verified (Name & Yes Yes Yes ) Patient Requires Transmission-Based No No No Precautions Finger Stick Blood Sugar(mg/dl) (if 119 161 indicated): Blood Sugar Stated by Stated by Patient Patient Height and Weight Body Mass Index (BMI) 26.9 26.9 26.9 BMI Classification Overweight Overweight Overweight Vital Signs Temperature (97.8 F-99.1 F) 97.7 F L 96.9 F L Temperature Source Temporal Temporal Pulse Rate (60-100) 122 H 112 H 116 H Pulse Location Monitor Monitor Monitor Respiratory Rate (12-18) 16 16 Respiratory rate source Observation Observation Oxygen Delivery Method Room Air Blood Pressure (90/60-120/80) 98/67 125/73 H 109/70 Blood Pressure Mean (mm Hg) 77 90 83 Source Monitor Monitor Monitor Position Sitting Sitting Blood Pressure Location Left Arm Right Arm History Since Last Visit- (Skip if this is Patient's initial visit) Have you changed medications since your No No No last visit? Any new allergies or adverse reactions No No No Had a fall/change in ADL's that may No No No increase risk of falls Signs or symptoms of abuse and/or No No No neglect since last visit Have you been in the hospital since your No No No last visit? Has dressing in place as prescribed Yes Yes Yes Has compression in place as prescribed Yes Yes Yes Has offloadiing in place as prescribed Yes Yes N/A Experienced any changes in pain level or No No No management Left Footwear Regular Shoe Regular Shoe Regular Shoe Right Footwear No Footwear Other Footwear Regular Shoe (Comment) Other Footwear sebastian only to rle Pain Scale: 0-10 Numeric Is Patient Pain Free? Yes Yes Yes WC - Nurse 1 - General Ulcer Measurement Start: 07/03/21 10:44 Freq: Status: Active Protocol: Activity Type Activity Date Activity User E-Sign Co-Sign Detail Recorded Client Recorded Date Recorded By Document 07/03/21 10:44 [id number] 07/03/21 11:02 Document 07/10/21 10:26 [facility] [id number] 07/10/21 10:45 [facility] Document 07/17/21 10:37 AK [id number] 07/17/21 10:40 AK 07/03/21 07/10/21 07/17/21 10:44 10:26 10:37 Wound Center Nurse 1 #4 R LATERAL FOOT -Combined with other wound No No No -Current Size (cm) - Length 2.0 0.1 2 -Current Size (cm) - Width 3.5 0.1 1.5 -Current Size (cm) - Depth 0.2 0.1 0.4 -Total Square Cm 7.00 0.01 3.0 -Photo Taken No No No -Epithelialization Small 1-33% None Present -Tunneling No No No -Undermining/Tunneling No No No -Circular Undermining No No No -Change in Wound Grade/Stage No -Exudate Amt Small Medium Medium -Exudate Type Serosanguineous Serosanguineous Serosanguineous -Wound Margin Flat & Intact Distinct, Distinct, Outline Outline Attached Attached -Granulation Amt Medium (34-66%) Medium (34-66%) Medium (34-66%) -Granulation Quality Pale,[place],Red [place],Red -Slough/Fibrin Yes Yes -Necrosis Amt Large (67-100%) Small (1-33%) -Necrotic Tissue Type Eschar Adherent Slough Adherent Slough -Structure Exposed N/A N/A N/A -Texture (Marie-wound Skin Appearance) Assessed, Assessed, No Abnormality, Localized Edema Scarring Assessed -Moisture (Marie-wound Skin Appearance) Assessed,Dry/ No Abnormality, No Abnormality, Scaly Assessed Assessed -Color (Marie-wound Skin Appearance) Assessed No Abnormality, No Abnormality, Assessed Assessed -Temperature (Marie-wound Skin No Abnormality No Abnormality No Abnormality Appearance) (Pt Warm) (Pt Warm) (Pt Warm) -Tenderness on Palpation (Marie-wound No Yes Yes Skin Appearance) -Ulcer Cleansing Rinsed/ Soap and Water Soap and Water Irrigated with Saline -Foul Odor after Cleansing No No No -Anesthetic Used 4% Lidocaine 4% Lidocaine 4% Lidocaine Solution Solution Solution -Wound Comment(s) theraskin covered wound obscured #3 R MEDIAL ANKLE -Combined with other wound No -Current Size (cm) - Length 0.1 -Current Size (cm) - Width 0.1 -Current Size (cm) - Depth 0.1 -Total Square Cm 0.01 -Photo Taken No -Epithelialization Large 67-100% -Tunneling No -Undermining/Tunneling No -Circular Undermining No -Exudate Amt None Present -Wound Margin Indistinct, Non -Visible -Granulation Amt None Present (0 %) -Slough/Fibrin No -Necrosis Amt Large (67-100%) -Necrotic Tissue Type Adherent Slough -Structure Exposed N/A -Texture (Marie-wound Skin Appearance) Crepitus, Localized Edema -Moisture (Marie-wound Skin Appearance) Assessed,Dry/ Scaly -Color (Marie-wound Skin Appearance) Assessed -Temperature (Marie-wound Skin No Abnormality Appearance) (Pt Warm) -Tenderness on Palpation (Marie-wound No Skin Appearance) -Ulcer Cleansing Rinsed/ Irrigated with Saline -Foul Odor after Cleansing Yes -Anesthetic Used 5% Lidocaine Gel #2 R MID LOWER LEG -Combined with other wound No No No -Current Size (cm) - Length 37.8 34 32 -Current Size (cm) - Width 4.5 4.3 4.6 -Current Size (cm) - Depth 0.3 0.1 1 -Total Square Cm 170.10 146.2 147.2 -Photo Taken No No No -Epithelialization Small 1-33% None Present -Tunneling No No No -Undermining/Tunneling No No -Circular Undermining No No No -Change in Wound Grade/Stage No -Exudate Amt Large Medium Medium -Exudate Type Serosanguineous Serosanguineous Serosanguineous -Wound Margin Flat & Intact Distinct, Distinct, Outline Outline Attached Attached -Granulation Amt Large (67-100%) Small (1-33%) Medium (34-66%) -Granulation Quality Red N/A [place],Red -Slough/Fibrin Yes Yes Yes -Necrosis Amt Small (1-33%) Small (1-33%) Medium (34-66%) -Necrotic Tissue Type Adherent Slough Adherent Slough Adherent Slough -Structure Exposed Tendon,Muscle N/A Tendon -Texture (Marie-wound Skin Appearance) Assessed, No Abnormality, No Abnormality, Localized Edema Assessed Assessed -Moisture (Marie-wound Skin Appearance) Assessed,Dry/ No Abnormality, No Abnormality, Scaly Assessed Assessed -Color (Marie-wound Skin Appearance) Assessed No Abnormality, No Abnormality, Assessed Assessed -Temperature (Marie-wound Skin No Abnormality No Abnormality No Abnormality Appearance) (Pt Warm) (Pt Warm) (Pt Warm) -Tenderness on Palpation (Marie-wound Yes No No Skin Appearance) -Ulcer Cleansing Rinsed/ Soap and Water Soap and Water Irrigated with Saline -Foul Odor after Cleansing No No No -Anesthetic Used 4% Lidocaine 4% Lidocaine 4% Lidocaine Solution Solution Solution Lower Limb Edema Present NA WC - Nurse 2 - General Ulcer CM Notes Start: 07/03/21 10:44 Freq: Status: Active Protocol: Activity Type Activity Date Activity User E-Sign Co-Sign Detail Recorded Client Recorded Date Recorded By Document 07/03/21 13:00 PL [id number] 07/03/21 13:12 PL 07/03/21 13:00 Wound Center Nurse 2 #4 R LATERAL FOOT -Time 11:25 -Correct Patient Yes -Correct Side, Site, Position Yes -Correct Procedure Yes -Procedure Performed Yes -Type of Procedure Debridement -Clinical Debridement Subcutaneous -Tissue Removed Subcutaneous -Post Debridement (cm) - Length 2.0 -Post Debridement (cm) - Width 3.5 -Post Debridement (cm) - Depth 0.2 -Total Square (Post) (cm) 7.00 -Area of Debridement (cm) - Length 2.0 -Area of Debridement (cm) - Width 3.5 -Total Square (Area) (cm) 7.00 -Tunneling No -Undermining/Tunneling No -Circular Undermining No -Wound/Ulcer Outcome Not Healed -Ulcer Cleansing Rinsed/ Irrigated with Saline -Foul Odor after Cleansing No -Bioengineered Tissue Yes -Type of Bioengineered Tissue Theraskin -Expiration Date 07/23/24 -Product Lot Number [id number] -Percent Used 100 -Bleeding Controlled with Pressure -Treatment Response Procedure Tolerated Well -Debridement - Subq, 1st 20sq cm No -Apply Skin Sub - 1st 25 sq cm - Feet 1 -Theraskin (per sq cm) 6 #3 R MEDIAL ANKLE -Procedure Performed No -Wound/Ulcer Outcome Healed- Epithelialized #2 R MID LOWER LEG -Time 11:25 -Correct Patient Yes -Correct Side, Site, Position Yes -Correct Procedure Yes -Procedure Performed Yes -Type of Procedure Debridement -Clinical Debridement Subcutaneous -Tissue Removed Subcutaneous -Post Debridement (cm) - Length 37.8 -Post Debridement (cm) - Width 4.5 -Post Debridement (cm) - Depth 0.3 -Total Square (Post) (cm) 170.10 -Area of Debridement (cm) - Length 37.8 -Area of Debridement (cm) - Width 4.5 -Total Square (Area) (cm) 170.10 -Tunneling No -Undermining/Tunneling No -Circular Undermining No -Wound/Ulcer Outcome Not Healed -Ulcer Cleansing Rinsed/ Irrigated with Saline -Foul Odor after Cleansing No -Bioengineered Tissue Yes -Type of Bioengineered Tissue Theraskin -Expiration Date 01/07/25 -Product Lot Number [id number] -Percent Used 100 -Bleeding Controlled with Pressure -Treatment Response Procedure Tolerated Well -Debridement - Subq, 1st 20sq cm No -Apply Skin Sub - each addt'l 25 sq cm 3 - Legs -Apply Skin Sub - 1st 100 sq cm - Legs 1 -Theraskin (per sq cm) 116 Pain Scale: 0-10 Numeric Is Patient Pain Free? Yes - Nurse 3 - General Ulcer D/C NN Start: 07/03/21 10:44 Freq: Status: Active Protocol: Activity Type Activity Date Activity User E-Sign Co-Sign Detail Recorded Client Recorded Date Recorded By Document 07/03/21 13:00 PL [id number] 07/03/21 13:12 PL Document 07/10/21 11:27 [facility] [id number] 07/10/21 11:29 [facility] 07/03/21 07/10/21 13:00 11:27 Pain Scale: 0-10 Numeric Is Patient Pain Free? Yes Yes Wound Care Nurse 3 #4 R LATERAL FOOT -Primary Dressing Covered/Secured with Dry Gauze & Roll Gauze, Secured with Tape,Other -Other Covering dry dressing/ abd pads #3 R MEDIAL ANKLE -Primary Dressing Covered/Secured with Dry Gauze & Roll Gauze, Secured with Tape #2 R MID LOWER LEG -Ulcer Cleansing Rinsed/ Irrigated with Saline -Foul Odor after Cleansing No -Primary Dressing Covered/Secured with Dry Gauze & Dry Gauze & Roll Gauze, Roll Gauze, Secured with Secured with Tape Tape,Other -Other Covering abds, dry dressing Right -Compression Wrap Sebastian Wrap Treatment Response Procedure Tolerated Well WC - Visit Discharge Discharge Condition Stable Stable Ambulatory Status Wheelchair Wheelchair Transportation Private Auto Accompanied by daughter Facility Type [facility] Care Facility Additional Wound Wound debrided: Right lateral foot Laterality: Right Wound Grade/Stage: Gonzalez stage III Type of Debridement: Excisional debridement Anesthesia Used: Cetacaine Depth: in the subcutaneous layer Percentage of wound debrided: 100 Instrument Used: 3mm curette Tissue Removed: Fibrous, devitalized subcutaneous, biofilm, slough Severity: Fat Layer Exposed Amount of bleeding with debridement: Mild Bleeding Controlled with: Pressure Patient tolerated procedure: Patient tolerated procedure well Assessment/Plan Assessment/Plan (1) Non-pressure 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: CODE(S): L97.212 - Non-pressure 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 (2) 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 Jacinto and Dr. Gonzalez, podiatric specialist. She has history of MRSA infection. Her wounds are located by diabetes mellitus type 2 with peripheral polyneuropathy, Charcot joint deformity of the right foot, and hypothyroidism. Following surgical debridement and recovery in the hospital she was on IV antibiotics vancomycin. Infectious disease has discontinued her vancomycin is now placed her on daptomycin. She was discharged to a residential facility where they have been continuing daily dressing changes wet-to-dry Dakin's dressing. Patient and her daughter were unhappy with that nursing facility and have changed to a different residential facility where they are much happier with her care. Her current nursing facility has informed her 07/07/2021 that her insurance has stopped paying for her assisted living facility and that she would be being discharged on 07/11/2021 home. She has been compliant with her nonweightbearing status to her right lower extremity. She is accompanied by her daughter today to the wound care center for follow-up of her wounds to her right lower extremity. Now that she will be at home she is to continue to apply the wound VAC with changes every 3 days (72hrs). Nursing performed wound VAC application today in facility. Nursing is teaching her how to apply and change her wound VAC so that she may continue to do this at home. Skin substitute graft is applied to the right lower extremity anterior wound and will right lateral foot wound today. TheraSkin graft is taking well to the wound bed and wound margins, previous graft removed from wound bed with #3 curette and a new TheraSkin graft applied to right lower extremity anterior wound and right lateral foot wound. Her wounds demonstrate no localized signs of infection. The surrounding skin is intact and atrophic. The medial right foot wound is nearly approximated. Mastisol was used to anchor Adaptic touch was placed over the grafts to the margins. Adaptic touch reinforced with Steri-Strips. A wound VAC was placed over the Adaptic touch to the right anterior leg wound and lateral foot wound today to ensure proper healing and granulation and acceptance of graft. She is to continue to elevate the right lower extremity and remain in nonweightbearing status to this extremity. I discussed with patient and mother today that she has been approved for hyperbaric dive therapy. Her right lower extremity anterior wound is a Gonzalez grade 3 and her right lateral foot wound is a Gonzalez grade 3, right medial foot wound Gonzalez grade 3. She underwent surgical debridement of all 3 Gonzalez grade 3 wounds to the right lower extremity on 05/23/2021 to drain deep abscess and debride necrotic tissue and tendon. She underwent a second debridement procedure on 05/28/2021 to drain deep anterior compartment abscess of the right lower extremity. She had undergone 8 weeks of IV vancomycin and her PICC line was pulled 07/09/2021. There is no localized signs of infection to any of the right foot or leg wounds. Grafting product placed today and intact to the right anterior wound and right lateral foot wound. Prescription filled out for renewal of handicap lynetteard today. Necessity for placard was confirmed as she is postsurgical debridement for infection and recovering. She is still remaining nonweightbearing to the right lower extremity. I discussed with her the need to ensure proper diabetic glycemic control and intake of protein to ensure wound healing and graft take. I reviewed and discussed his case today. Debridement was performed today as noted in the clinical panel to all of the ulcer sites. The following work up and care recommendations were made: Dressing: Leave to TheraSkin graft in place with Adaptic covering. Apply wound VAC over site right anterior leg wound and lateral foot wound. Wound VAC to be changed every 72 hours and set at 125 mmHg of intermittent pressure. Wash: Do not wash Tissue growth optimization: TheraSkin skin substitute right anterior leg wound and lateral foot wound Offload: Nonweightbearing right lower extremity with elevation via soft pillows Vascular: Edema: Wound VAC will aid in edema control along with elevation of the lower extremity. Infection: No localized signs of infection Pain: Continue with Motrin and Tylenol extra strength at her assisted living facility Host factors: History of MRSA and Enterococcus infection. Diabetes type 2 with peripheral polyneuropathy, discussed proper glycemic control and intake of protein to ensure wound healing I answered all the patient's questions. To return to the wound healing center in 1 week or call sooner if the patient has any questions or concerns. Note: [employer] speech recognition it security architect software was used to create portions of this document. Sound-alike and misspelled words, as well as other it security architect errors may be contained in the documentation.
== END 2021-07-21 23:59 ==
LOC: WC 10:30
PROVIDERS: PCP Family Medicine; Visit Provider Student in an Organized Health Care Education/Training Program
DX: E11.621 Type 2 diabetes mellitus with foot ulcer (principal); L97.212 Non-pressure 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; L97.512 Non-pressure chronic 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; E11.42 Type 2 diabetes mellitus with diabetic polyneuropathy; E11.610 Type 2 diabetes mellitus with diabetic neuropathic arthropathy; Z87.891 Personal history of nicotine dependence; E03.9 Hypothyroidism, unspecified
CPT/HCPCS: 15271; 15272; 15273; 15274; 15275; 97606; 99213; Q4121; G0463

== ENCOUNTER 2021-08-21 11:00 | Outpatient (RCR) | payer MEDICAID, BC, SELFPAY ==
[2021-07-22 00:12] VITALS: BP 109/70; PULSE 116; RESP 16; TEMP 36.1; BMI 26.9
[2021-07-23 10:40] LABS: Bedside Glucose 174 mg/dL (74-106)
[2021-07-23 11:32] VITALS: BP 107/59; BP 107/60; PULSE 55; PULSE 84; RESP 16; TEMP 36.4
--- NOTE | 2021-07-23 13:00 | HBO.PN.PCM_ITS ---
History of Present Illness Date of Service: 07/23/21 Chief Complaint: right foot ulcer and Right Leg wound History of Wound: This 55-year-old female presents for care of right foot wound. She had surgery at [facility] in November 2020. She denies current fever, chill, nausea, vomiting. She denies delays in wound care and has been applying saline wet-to-dry to help with home health. She relates her bone biopsy that was obtained during her foot surgery was negative for osteomyelitis. She has a PICC placed and saw infectious disease specialist, Dr. Paez at [facility]. She relates she is almost complete with her IV antibiotic course. She is offloading with a surgical shoe. She takes nutritional supplementation including vitamin D and B. She denies claudication. She does have rest paresthesias. She is diabetic with an A1c of over 8%. She also has history of back injuries. Since her last visit, she reports she had thick fluid squirting out of the wound with application of her silver dressing. She was concerned it was infected and called in yesterday. She is advised by nursing staff to go to the emergency room if she thought she had a rapid onset infection. She relates she is scheduled to see her surgeon tomorrow. She did not obtain the previously ordered labs and foot x-rays. She denies current redness or odor. Medical records reviewed from and it is noted she had right foot incision and drainage of fifth metatarsal on 12-04-20. Her surgeon was Dr. Blanchard. She is advised wearing AFO brace. It is noted she started on Bactrim and then after the surgery she was placed on IV antibiotics. She later developed an infection of her right foot ulceration and underwent I&D with wide debridement on 05-23-21 and 05-28-[address] Alexandre and Dr. Gonzalez. Cultures were positive for MRSA and Enterococcus and was placed on IV Vancomycin by infectious disease. She was discharged to a fpc facility with instructions for wound vac application to right anterior leg and lateral right foot and wet to dry Dakin's dressings to the right foot. Allergies: Clindamycin Medications cyclo-Benzapril, NuvaRing, Advil, Cytomel, Dovray, armodafinil, Singulair, Synthroid, Lyrica Past medical history: diabetes and history of back surgery, ankle surgery, right knee arthroscopy Social history: former smoker and no current tobacco use; quit in 1981 Progress of Wound: Tolerated her first HBO treatment today vital signs were stable blood sugars were good Subjective Subjective Patient had no concerns Objective Data Objective Data Patient tolerated HBO treatments well and was discharged with very vital signs stable Vital Signs: Vital Signs Temp Pulse Resp BP 97.6 F L 84 16 107/59 L 07/23/21 11:32 07/23/21 11:32 07/23/21 11:32 07/23/21 11:32 Weight: 177 lb Body Mass Index (BMI) 26.9 Lab / Micro Data Attestation: I reviewed the patient's lab results. Labs: Laboratory Results - last 24 hr 07/23/21 10:29: POC Glucose 174 H Exam Physical Exam Narrative Patient was alert and oriented and had no issues blood sugars were within the realm of normal for being treated and HBO Assessment/Plan Assessment/Plan (1) Non-pressure 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: CODE(S): L97.212 - Non-pressure 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 (2) 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: CODE(S): L97.512 - 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 (3) Type 2 diabetes mellitus with diabetic polyneuropathy: CODE(S): E11.42 - Type 2 diabetes mellitus with diabetic polyneuropathy (4) Charcot's joint of right foot: CODE(S): M14.671 - Charcot's joint, right ankle and foot (5) Hypothyroidism: CODE(S): E03.9 - Hypothyroidism, unspecified PLAN: Patient will continue HBO treatments as ordered and scheduled as long as vital signs and blood sugars are stable
[2021-07-23 13:21] LABS: Bedside Glucose 110 mg/dL (74-106)
--- NOTE | 2021-07-24 12:35 | PCM.WC.PN ---
History of Present Illness Date of Service: 07/24/21 Chief Complaint: right foot ulcer and Right Leg wound History of Wound: This 55-year-old female presents for care of right foot wound. She had surgery at [facility] in November 2020. She denies current fever, chill, nausea, vomiting. She denies delays in wound care and has been applying saline wet-to-dry to help with home health. She relates her bone biopsy that was obtained during her foot surgery was negative for osteomyelitis. She has a PICC placed and saw infectious disease specialist, Dr. Paez at [facility]. She relates she is almost complete with her IV antibiotic course. She is offloading with a surgical shoe. She takes nutritional supplementation including vitamin D and B. She denies claudication. She does have rest paresthesias. She is diabetic with an A1c of over 8%. She also has history of back injuries. Since her last visit, she reports she had thick fluid squirting out of the wound with application of her silver dressing. She was concerned it was infected and called in yesterday. She is advised by nursing staff to go to the emergency room if she thought she had a rapid onset infection. She relates she is scheduled to see her surgeon tomorrow. She did not obtain the previously ordered labs and foot x-rays. She denies current redness or odor. Medical records reviewed from and it is noted she had right foot incision and drainage of fifth metatarsal on 12-04-20. Her surgeon was Dr. Blanchard. She is advised wearing AFO brace. It is noted she started on Bactrim and then after the surgery she was placed on IV antibiotics. She later developed an infection of her right foot ulceration and underwent I&D with wide debridement on 05-23-21 and 05-28-[address] Alexandre and Dr. Gonzalez. Cultures were positive for MRSA and Enterococcus and was placed on IV Vancomycin by infectious disease. [facility] with instructions for wound vac application to right anterior leg and lateral right foot and wet to dry Dakin's dressings to the right foot. Allergies: Clindamycin Medications cyclo-Benzapril, NuvaRing, Advil, Cytomel, [place], armodafinil, Singulair, Synthroid, Lyrica Past medical history: diabetes and history of back surgery, ankle surgery, right knee arthroscopy Social history: former smoker and no current tobacco use; quit in 1981 Progress of Wound: Tolerated her first HBO treatment today vital signs were stable blood sugars were good Subjective Subjective This is a 55-year-old female who presents to the wound care center for follow-up of right anterior lower extremity wound, right lateral foot wound, and right medial foot wound status post incision and drainage of deep abscess and cellulitis on 06/13 and 05/28/2021. She states she is doing well at home and is changing the wound VAC dressings every 48 hours. She continues to deny any nausea, vomiting, chills, fever, shortness of breath, or other constitutional symptoms. She states that the site is becoming less painful each day and she is pleased with her TheraSkin graft and her healing process today. Objective Data Objective Data Vital Signs: Vital Signs Temp Pulse Resp BP 97.6 F L 84 16 107/59 L 07/23/21 11:32 07/23/21 11:32 07/23/21 11:32 07/23/21 11:32 Weight: 80.286 kg Body Mass Index (BMI) 26.9 Lab / Micro Data Labs: Laboratory Results - last 24 hr 07/23/21 13:11: POC Glucose 110 H Physical Exam Const alert, oriented x3 and no apparent distress General Appearance: cooperative and comfortable HEENT normocephalic Eyes General Eye: normal appearance of both eyes Neck General: normal visual inspection Lymph Lymphatic: no lymphadenopathy noted and no lymphedema noted Resp normal respiratory effort Cardio regular rate and regular rhythm Skin Skin Narrative: Ulceration sites to the anterior right lower extremity and lateral right foot. Medial cicatrix noted. surrounding skin is intact soft, supple and atrophic. Wound Narrative: All wounds are secondary to previous surgical debridement for an abscess of the foot and anterior compartment of the lower extremity. Lateral foot ulceration right foot demonstrates improvement and granulating in nicely. Grafting product is intact. There is granular tissue with no localized erythema, no purulent drainage, no malodor or other localized signs of infection. Medial right foot wound has healed with stable cicatrix noted with no localized signs of infection. Right lower extremity anterior leg wound is granulating in with less exposed tendon of the extensor hallucis longus and anterior tibial tendon. Ulceration site is not as deep as previous visits and is closing proximally and distally. Wound bed is 100% granular with NuSpin full texture proximally and scant fibrotic tissue distally. Grafting product intact. Ulceration site demonstrates no surrounding erythema, no purulent drainage, no malodor, no red streaking up the leg, or other localized signs of infection. Neuro oriented x3 and moves all extremities Debridement Note Debridement Note No debridement was completed: No debridement was completed today Assessment/Plan Assessment/Plan (1) Non-pressure 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: CODE(S): L97.212 - Non-pressure 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 (2) 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: CODE(S): L97.512 - 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 (3) Type 2 diabetes mellitus with diabetic polyneuropathy: CODE(S): E11.42 - Type 2 diabetes mellitus with diabetic polyneuropathy (4) Charcot's joint of right foot: CODE(S): M14.671 - Charcot's joint, right ankle and foot (5) Hypothyroidism: CODE(S): E03.9 - Hypothyroidism, unspecified PLAN: This is a 55-year-old female with history of wide I&D and deep debridement of the right foot and ankle from 05/23/2021 and 05/28/[address] Alexand[address] and Dr. Gonzalez, podiatric specialist. She has history of MRSA infection. Her wounds are complicated by diabetes mellitus type 2 with peripheral polyneuropathy, Charcot joint deformity of the right foot, hypothyroidism. Following surgical debridement and recovery in the hospital she was on IV antibiotics vancomycin. Infectious disease discontinued her vancomycin and placed her on daptomycin. [facility] where they have been continuing daily dressing changes wet-to-dry Dakin's. Patient and daughter were unhappy with the nursing facility and changed to a different [facility] facility where they were much happier with her care. She has since been discharged from the nursing facility to her home on 07/11/2021. She has been compliant with her nonweightbearing status to her right lower extremity. She is accompanied by her mother today to the wound care center for follow-up of her wounds to her right lower extremity. She is continuing to be compliant with wound VAC changes every 2 to 3 days to the right anterior leg and right lateral foot wounds. She has been approved for HBO therapy and has completed her first dive with a second dive to follow later today. Skin substitute graft is intact to the right lower extremity anterior wound and right lateral foot wound. The right anterior lower extremity wound is closing at the most proximal and most distal portions with new skin coverage. TheraSkin graft is taking well to the wound bed and wound margins. Her wounds demonstrate no localized signs of infection. The surrounding skin is intact and atrophic. The medial right foot wound is healed with a stable cicatrix. TheraSkin graft left intact to the right anterior lower extremity wound and right lateral foot wound and dressed with Adaptic touch and anchored with Steri-Strips. Patient to reapply VAC over the Adaptic touch to the right lower extremity anterior wound and lateral right foot wound following her hyperbaric dive later this day to ensure continued healing and granulation and acceptance of graft. She is to continue to elevate the right lower extremity and remain in a nonweightbearing status to this extremity Her right lower extremity anterior wound is a Gonzalez grade 3 at her right lateral foot wound is a Gonzalez grade 3, right medial foot wound Gonzalez grade 3. She underwent a surgical debridement of all 3 of these Gonzalez grade 3 wounds to the right lower extremity on 05/23/2021 to drain a deep abscess and debride necrotic tissue and tendon. She underwent a second debridement procedure on 05/28/2021 to drain deep anterior compartment abscess of the right lower extremity. She had undergone and completed 8 weeks of IV vancomycin and her PICC line was pulled on 07/09/2021. There is no localized signs of infection to any of the right foot wounds. Grafting product is intact to the right anterior wound and right lateral foot wound. She continues to make good progress in her healing status. She is very pleased with her treatment progress. She is currently partaking in HBO therapy and will finish her recommended sessions of dives to completion. I discussed with her to continue to ensure proper diabetic glycemic control and intake of protein to ensure wound healing and graft take. I reviewed and discussed his case today. Debridement was performed today as noted in the clinical panel to all of the ulcer sites. The following work up and care recommendations were made: Dressing: Leave TheraSkin graft in place with Adaptic covering. Apply wound VAC over site right anterior leg wound and right lateral foot wound. Wound VAC to be changed every 48-72 hours and set at 125 mmHg of intermittent pressure Wash: Do not wash Tissue growth optimization: TheraSkin skin substitute right anterior leg wound and lateral foot wound Offload: Nonweightbearing right lower extremity with elevation via soft pillows Vascular: Edema: Wound VAC will aid in edema control along with elevation of lower extremity Infection: No localized signs of infection Pain: Continue with Motrin and Tylenol extra strength at home Host factors: History of MRSA and Enterococcus infection. Diabetes type 2 with peripheral polyneuropathy, discussed proper glycemic control and intake of protein to ensure wound healing. I answered all the patient's questions. To return to the wound healing center in 1 week or call sooner if the patient has any questions or concerns. The problems addressed require a low medical decision making level which includes two or more minor problems, a stable chronic illness, or an acute uncomplicated illness or injury. The medical decision making level is low. There is noted low risk of morbidity after considering this treatment plan and diagnostic data. Note: [employer] speech recognition door technician software was used to create portions of this document. Sound-alike and misspelled words, as well as other door technician errors may be contained in the documentation.
[2021-07-24 12:46] LABS: Bedside Glucose 126 mg/dL (74-106)
[2021-07-24 12:46] LABS: Bedside Glucose 121 mg/dL (74-106)
[2021-07-24 13:42] VITALS: BP 126/79; PULSE 78; TEMP 35.9; BMI 26.9
[2021-07-25 10:31] LABS: Bedside Glucose 156 mg/dL (74-106)
[2021-07-25 12:00] VITALS: BP 118/58; BP 130/66; PULSE 57; PULSE 83; RESP 16; TEMP 35.9
[2021-07-25 12:41] LABS: Bedside Glucose 102 mg/dL (74-106)
--- NOTE | 2021-07-25 14:19 | HBO.PN.PCM_ITS ---
History of Present Illness Date of Service: 07/25/21 Chief Complaint: right foot ulcer and Right Leg wound History of Wound: This 55-year-old female presents for care of right foot wound. She had surgery at [facility] in November 2020. She denies current fever, chill, nausea, vomiting. She denies delays in wound care and has been applying saline wet-to-dry to help with home health. She relates her bone biopsy that was obtained during her foot surgery was negative for osteomyelitis. She has a PICC placed and saw infectious disease specialist, Dr. Paez at [facility]. She relates she is almost complete with her IV antibiotic course. She is offloading with a surgical shoe. She takes nutritional supplementation including vitamin D and B. She denies claudication. She does have rest paresthesias. She is diabetic with an A1c of over 8%. She also has history of back injuries. Since her last visit, she reports she had thick fluid squirting out of the wound with application of her silver dressing. She was concerned it was infected and called in yesterday. She is advised by nursing staff to go to the emergency room if she thought she had a rapid onset infection. She relates she is scheduled to see her surgeon tomorrow. She did not obtain the previously ordered labs and foot x-rays. She denies current redness or odor. Medical records reviewed from and it is noted she had right foot incision and drainage of fifth metatarsal on 12-04-20. Her surgeon was Dr. Blanchard. She is advised wearing AFO brace. It is noted she started on Bactrim and then after the surgery she was placed on IV antibiotics. She later developed an infection of her right foot ulceration and underwent I&D with wide debridement on 05-23-21 and 05-28-[address] Alexandre and Dr. Gonzalez. Cultures were positive for MRSA and Enterococcus and was placed on IV Vancomycin by infectious disease. She was discharged to a alf facility with instructions for wound vac application to right anterior leg and lateral right foot and wet to dry Dakin's dressings to the right foot. Allergies: Clindamycin Medications cyclo-Benzapril, NuvaRing, Advil, Cytomel, Dexter, armodafinil, Singulair, Synthroid, Lyrica Past medical history: diabetes and history of back surgery, ankle surgery, right knee arthroscopy Social history: former smoker and no current tobacco use; quit in 1981 Subjective Subjective Progress: Today is the 2nd treatment of hyperbaric oxygen therapy. The patient is scheduled for 30 treatments total. Tolerance of hyperbaric oxygen therapy: Hyperbaric oxygen treatment was provided as per the facility's protocol at 2.0 KELLY in 100% oxygen for 90 minutes without air breaks. The patient tolerated hyperbaric oxygen well, without complications or complaints. Upon emergence of the hyperbaric chamber, the patient's vital signs remained stable. Objective Data Objective Data Vital Signs: Vital Signs Temp Pulse Resp BP 96.7 F L 83 16 130/66 H 07/25/21 12:00 07/25/21 12:00 07/25/21 12:00 07/25/21 12:00 Weight: 80.286 kg Body Mass Index (BMI) 26.9 Lab / Micro Data Labs: Laboratory Results - last 24 hr 07/25/21 10:25: POC Glucose 156 H 07/25/21 12:35: POC Glucose 102 Exam Physical Exam Const alert, oriented x3 and no apparent distress General Appearance: cooperative and comfortable HEENT normocephalic and head/scalp atraumatic Tympanic Membrane: TM's normal bilaterally Resp normal respiratory effort Effort and Inspection: able to speak in complete sentences Psych mental status grossly normal, thought process normal, cooperative and affect normal Nursing Assessment and Debridement Post-Debridement Measurements and Additional Note: Post-Debridement Measurements/Treatment WC - Nurse 1 - General Ulcer Assessment Start: 07/23/21 11:32 Freq: Status: Active Protocol: [email or web address] Activity Type Activity Date Activity User E-Sign Co-Sign Detail Recorded Client Recorded Date Recorded By Document 07/24/21 13:42 NJ [id number] 07/24/21 13:46 VALARIE 07/24/21 13:42 - Today's Visit Information Type of service Follow-up Visit (Physician/BUSINESS CONTINUITY PLANNING DIRECTOR ) Arrival Mode Wheelchair Transfer Assistance None Transfer Assist (Other) MOM Patient Identification Verified (Name & Yes ) Patient Requires Transmission-Based No Precautions Height and Weight Body Mass Index (BMI) 26.9 BMI Classification Overweight Vital Signs Temperature (97.8 F-99.1 F) 96.7 F L Temperature Source Temporal Pulse Rate (60-100) 78 Pulse Location Monitor Blood Pressure (90/60-120/80) 126/79 H Blood Pressure Mean (mm Hg) 94 Source Monitor History Since Last Visit- (Skip if this is Patient's initial visit) Have you changed medications since your No last visit? Any new allergies or adverse reactions No Had a fall/change in ADL's that may No increase risk of falls Signs or symptoms of abuse and/or No neglect since last visit Have you been in the hospital since your No last visit? Has dressing in place as prescribed Yes Has compression in place as prescribed Yes Has offloadiing in place as prescribed Yes Experienced any changes in pain level or No management Left Footwear No Footwear Right Footwear Regular Shoe Pain Scale: 0-10 Numeric Is Patient Pain Free? Yes WC - Nurse 1 - General Ulcer Measurement Start: 07/23/21 11:32 Freq: Status: Active Protocol: Activity Type Activity Date Activity User E-Sign Co-Sign Detail Recorded Client Recorded Date Recorded By Document 07/24/21 13:42 VALARIE [id number] 07/24/21 13:46 VALARIE 07/24/21 13:42 Wound Center Nurse 1 #4 R LATERAL FOOT -Combined with other wound No -Current Size (cm) - Length 29 -Current Size (cm) - Width 5.1 -Current Size (cm) - Depth 0.1 -Total Square Cm 147.9 -Date of Last Picture (Recall this 07/24/21 field) -Photo Taken Yes -Tunneling No -Undermining/Tunneling No -Circular Undermining No -Exudate Amt Large -Exudate Type Serosanguineous -Wound Margin Distinct, Outline Attached -Granulation Amt Small (1-33%) -Granulation Quality [place] -Slough/Fibrin Yes -Necrosis Amt Small (1-33%) -Necrotic Tissue Type Adherent Slough -Structure Exposed N/A -Texture (Marie-wound Skin Appearance) No Abnormality, Assessed -Moisture (Marie-wound Skin Appearance) No Abnormality, Assessed -Color (Marie-wound Skin Appearance) No Abnormality, Assessed -Temperature (Marie-wound Skin No Abnormality Appearance) (Pt Warm) -Tenderness on Palpation (Marie-wound No Skin Appearance) -Ulcer Cleansing Rinsed/ Irrigated with Saline -Foul Odor after Cleansing No #2 R MID LOWER LEG -Combined with other wound Yes -Combined with (Name of Wound-Exactly #4 RIGHT as it is documented) LATERAL FOOT WC - Nurse 3 - General Ulcer D/C NN Start: 07/23/21 11:32 Freq: Status: Active Protocol: Activity Type Activity Date Activity User E-Sign Co-Sign Detail Recorded Client Recorded Date Recorded By Document 07/24/21 13:29 NATY [id number] 07/24/21 13:31 NATY 07/24/21 13:29 Wound Care Nurse 3 #4 R LATERAL FOOT -Ulcer Cleansing Rinsed/ Irrigated with Saline -Foul Odor after Cleansing No -Negative Pressure Wound Therapy Continue -Setting (mmHg) 125 -Negative Pressure is Continuous -NPWT Application Charge NPWT > 50 sq cm ($) #2 R MID LOWER LEG -Ulcer Cleansing Rinsed/ Irrigated with Saline -Foul Odor after Cleansing No -Negative Pressure Wound Therapy Continue -Setting (mmHg) 150 -Negative Pressure is Continuous -NPWT Application Charge NPWT - Multiple Locations Right -Compression Wrap Sebastian Wrap Pain Scale: 0-10 Numeric Is Patient Pain Free? Yes WC - Visit Discharge Discharge Condition Stable Ambulatory Status Ambulatory Transportation Private Auto Medication Reconcilliation completed & Yes provided to patient/care provider Clinical Summary of Care Provided Yes Assessment/Plan Assessment/Plan (1) Non-pressure 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: CODE(S): L97.212 - Non-pressure 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 (2) 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: CODE(S): L97.512 - 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 (3) Type 2 diabetes mellitus with diabetic polyneuropathy: CODE(S): E11.42 - Type 2 diabetes mellitus with diabetic polyneuropathy QUALIFIERS: Diabetes mellitus terminal clerk insulin use: with terminal clerk use Qualified Code(s): E11.42 - Type 2 diabetes mellitus with diabetic polyneuropathy; Z79.4 - assisted (current) use of insulin (4) Charcot's joint of right foot: CODE(S): M14.671 - Charcot's joint, right ankle and foot (5) Hypothyroidism: CODE(S): E03.9 - Hypothyroidism, unspecified QUALIFIERS: Hypothyroidism type: unspecified Qualified Code(s): E03.9 - Hypothyroidism, unspecified PLAN: The patient appears to be tolerating hyperbaric oxygen therapy well, which will be continued as per his medical treatment plan.
[2021-07-28 10:26] LABS: Bedside Glucose 148 mg/dL (74-106)
--- NOTE | 2021-07-28 10:58 | HBO.PN.PCM_ITS ---
History of Present Illness Date of Service: 07/28/21 Chief Complaint: right foot ulcer and Right Leg wound History of Wound: This 55-year-old female presents for care of right foot wound. She had surgery at [facility] in November 2020. She denies current fever, chill, nausea, vomiting. She denies delays in wound care and has been applying saline wet-to-dry to help with home health. She relates her bone biopsy that was obtained during her foot surgery was negative for osteomyelitis. She has a PICC placed and saw infectious disease specialist, Dr. Paez at [facility]. She relates she is almost complete with her IV antibiotic course. She is offloading with a surgical shoe. She takes nutritional supplementation including vitamin D and B. She denies claudication. She does have rest paresthesias. She is diabetic with an A1c of over 8%. She also has history of back injuries. Since her last visit, she reports she had thick fluid squirting out of the wound with application of her silver dressing. She was concerned it was infected and called in yesterday. She is advised by nursing staff to go to the emergency room if she thought she had a rapid onset infection. She relates she is scheduled to see her surgeon tomorrow. She did not obtain the previously ordered labs and foot x-rays. She denies current redness or odor. Medical records reviewed from and it is noted she had right foot incision and drainage of fifth metatarsal on 12-04-20. Her surgeon was Dr. Blanchard. She is advised wearing AFO brace. It is noted she started on Bactrim and then after the surgery she was placed on IV antibiotics. She later developed an infection of her right foot ulceration and underwent I&D with wide debridement on 05-23-21 and 05-28-[address] Alexandre and Dr. Gonzalez. Cultures were positive for MRSA and Enterococcus and was placed on IV Vancomycin by infectious disease. She was discharged to a longterm facility with instructions for wound vac application to right anterior leg and lateral right foot and wet to dry Dakin's dressings to the right foot. Allergies: Clindamycin Medications cyclo-Benzapril, NuvaRing, Advil, Cytomel, [place], armodafinil, Singulair, Synthroid, Lyrica Past medical history: diabetes and history of back surgery, ankle surgery, right knee arthroscopy Social history: former smoker and no current tobacco use; quit in 1981 Subjective Subjective Progress: Today is the 3rd treatment of hyperbaric oxygen therapy. The patient is scheduled for 30 treatments total. Tolerance of hyperbaric oxygen therapy: Hyperbaric oxygen treatment was provided as per the facility's protocol at 2.0 KELLY in 100% oxygen for 90 minutes without air breaks. The patient tolerated hyperbaric oxygen well, without complications or complaints. Upon emergence of the hyperbaric chamber, the patient's vital signs remained stable. Objective Data Objective Data Vital Signs: Vital Signs Temp Pulse Resp BP 96.7 F L 83 16 130/66 H 07/25/21 12:00 07/25/21 12:00 07/25/21 12:00 07/25/21 12:00 Weight: 177 lb Body Mass Index (BMI) 26.9 Lab / Micro Data Labs: Laboratory Results - last 24 hr 07/28/21 10:23: POC Glucose 148 H Exam Physical Exam Const alert, oriented x3 and no apparent distress General Appearance: cooperative and comfortable HEENT normocephalic and head/scalp atraumatic Tympanic Membrane: TM's normal bilaterally Resp normal respiratory effort Effort and Inspection: able to speak in complete sentences Psych mental status grossly normal, thought process normal, cooperative and affect normal Assessment/Plan Assessment/Plan (1) Non-pressure 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: CODE(S): L97.212 - Non-pressure 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 PLAN: The patient appears to be tolerating hyperbaric oxygen therapy well, which will be continued as per his medical treatment plan. 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
[2021-07-28 12:37] VITALS: BP 104/61; BP 117/56; PULSE 67; PULSE 72; RESP 16; RESP 17; TEMP 35.9
[2021-07-28 12:51] LABS: Bedside Glucose 138 mg/dL (74-106)
[2021-07-29 10:25] LABS: Bedside Glucose 214 mg/dL (74-106)
[2021-07-29 12:08] VITALS: BP 117/64; BP 121/67; PULSE 63; PULSE 72; RESP 16; RESP 17; TEMP 35.9
[2021-07-29 12:40] LABS: Bedside Glucose 145 mg/dL (74-106)
--- NOTE | 2021-07-29 15:14 | PCM.HBO.PN ---
History of Present Illness Date of Service: 07/29/21 Chief Complaint: right foot ulcer and Right Leg wound History of Wound: This 55-year-old female presents for care of right foot wound. She had surgery at [facility] in November 2020. She denies current fever, chill, nausea, vomiting. She denies delays in wound care and has been applying saline wet-to-dry to help with home health. She relates her bone biopsy that was obtained during her foot surgery was negative for osteomyelitis. She has a PICC placed and saw infectious disease specialist, Dr. Paez at [facility]. She relates she is almost complete with her IV antibiotic course. She is offloading with a surgical shoe. She takes nutritional supplementation including vitamin D and B. She denies claudication. She does have rest paresthesias. She is diabetic with an A1c of over 8%. She also has history of back injuries. Since her last visit, she reports she had thick fluid squirting out of the wound with application of her silver dressing. She was concerned it was infected and called in yesterday. She is advised by nursing staff to go to the emergency room if she thought she had a rapid onset infection. She relates she is scheduled to see her surgeon tomorrow. She did not obtain the previously ordered labs and foot x-rays. She denies current redness or odor. Medical records reviewed from and it is noted she had right foot incision and drainage of fifth metatarsal on 12-04-20. Her surgeon was Dr. Blanchard. She is advised wearing AFO brace. It is noted she started on Bactrim and then after the surgery she was placed on IV antibiotics. She later developed an infection of her right foot ulceration and underwent I&D with wide debridement on 05-23-21 and 05-28-[address] Alexandre and Dr. Gonzalez. Cultures were positive for MRSA and Enterococcus and was placed on IV Vancomycin by infectious disease. She was discharged to a residential facility with instructions for wound vac application to right anterior leg and lateral right foot and wet to dry Dakin's dressings to the right foot. Allergies: Clindamycin Medications cyclo-Benzapril, NuvaRing, Advil, Cytomel, [place], armodafinil, Singulair, Synthroid, Lyrica Past medical history: diabetes and history of back surgery, ankle surgery, right knee arthroscopy Social history: former smoker and no current tobacco use; quit in 1981 Subjective Subjective Patient presents today for hyperbaric oxygen therapy treatment. Today's session represents the fourth such session of a planned 30 sessions. Hyperbaric oxygen therapy was administered as per the facility's protocol. Hyperbaric oxygen therapy was administered at 2 forrest for 90 minutes with no air breaks. Patient tolerated hyperbaric oxygen therapy well, without complaints or complications. Upon emergence from the hyperbaric chamber, the patient's vital signs remained stable. Blood glucose measurements were obtained both prior to and following hyperbaric oxygen therapy, and are recorded elsewhere. The patient was discharged in good condition. Objective Data Objective Data Vital Signs: Vital Signs Temp Pulse Resp BP 96.7 F L 72 17 117/64 07/29/21 12:08 07/29/21 12:08 07/29/21 12:08 07/29/21 12:08 Weight: 177 lb Body Mass Index (BMI) 26.9 Lab / Micro Data Labs: Laboratory Results - last 24 hr 07/29/21 10:19: POC Glucose 214 H 07/29/21 12:34: POC Glucose 145 H Exam Physical Exam Const alert, oriented x3, no apparent distress and well nourished General Appearance: cooperative and well developed HEENT normocephalic and EAC's normal Head and Scalp: atraumatic Eyes PERRL and EOMs intact bilaterally Neck supple Resp normal respiratory effort and no use of accessory muscles Effort and Inspection: able to speak in complete sentences Psych affect normal Appearance: grossly normal and well kempt Assessment/Plan Assessment/Plan (1) Chronic ulcer of right foot due to diabetes mellitus: CODE(S): E11.621 - Type 2 diabetes mellitus with foot ulcer; L97.519 - Non-pressure chronic ulcer of other part of right foot with unspecified severity (2) Non-pressure 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: CODE(S): L97.212 - Non-pressure 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 (3) 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: CODE(S): L97.512 - 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 (4) Type 2 diabetes mellitus with diabetic polyneuropathy: CODE(S): E11.42 - Type 2 diabetes mellitus with diabetic polyneuropathy QUALIFIERS: Diabetes mellitus nursing home insulin use: with nursing home use Qualified Code(s): E11.42 - Type 2 diabetes mellitus with diabetic polyneuropathy; Z79.4 - termite 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
[2021-07-31 09:46] VITALS: BP 148/64; PULSE 90; RESP 16; TEMP 36.5; BMI 26.9
--- NOTE | 2021-07-31 13:20 | PN.PCM_ITS ---
History of Present Illness Date of Service: 07/31/21 Chief Complaint: right foot ulcer and Right Leg wound History of Wound: This 55-year-old female presents for care of right foot wound. She had surgery at [facility] in November 2020. She denies current fever, chill, nausea, vomiting. She denies delays in wound care and has been applying saline wet-to-dry to help with home health. She relates her bone biopsy that was obtained during her foot surgery was negative for osteomyelitis. She has a PICC placed and saw infectious disease specialist, Dr. Paez at [facility]. She relates she is almost complete with her IV antibiotic course. She is offloading with a surgical shoe. She takes nutritional supplementation including vitamin D and B. She denies claudication. She does have rest paresthesias. She is diabetic with an A1c of over 8%. She also has history of back injuries. Since her last visit, she reports she had thick fluid squirting out of the wound with application of her silver dressing. She was concerned it was infected and called in yesterday. She is advised by nursing staff to go to the emergency room if she thought she had a rapid onset infection. She relates she is scheduled to see her surgeon tomorrow. She did not obtain the previously ordered labs and foot x-rays. She denies current redness or odor. Medical records reviewed from and it is noted she had right foot incision and drainage of fifth metatarsal on 12-04-20. Her surgeon was Dr. Blanchard. She is advised wearing AFO brace. It is noted she started on Bactrim and then after the surgery she was placed on IV antibiotics. She later developed an infection of her right foot ulceration and underwent I&D with wide debridement on 05-23-21 and 05-28-[address] Alexandre and Dr. Gonzalez. Cultures were positive for MRSA and Enterococcus and was placed on IV Vancomycin by infectious disease. She was discharged to a retirement facility with instructions for wound vac application to right anterior leg and lateral right foot and wet to dry Dakin's dressings to the right foot. Allergies: Clindamycin Medications cyclo-Benzapril, NuvaRing, Advil, Cytomel, Goode, armodafinil, Singulair, Synthroid, Lyrica Past medical history: diabetes and history of back surgery, ankle surgery, right knee arthroscopy Social history: former smoker and no current tobacco use; quit in 1981 Subjective Subjective This is a 55-year-old female who presents to the wound care center for follow-up of right anterior lower extremity wound, right lateral foot wound, and right medial foot wound status post incision and drainage of deep abscess and cellulitis on 06/13 and 05/28/2021. She states she is doing well at home and is changing the wound VAC dressings every 48 hours. She continues to deny any nausea, vomiting, chills, fever, shortness of breath, or other constitutional symptoms. She states that the site is becoming less painful each day and she is pleased with her TheraSkin graft and her healing progress today. She also states today that she has been having bouts of dizziness and nausea with vomiting/dry heaving 2 days after completing a full hyperbaric dive. She states that she would like to stop her hyperbaric therapy as she does not like this feeling. Objective Data Objective Data Vital Signs: Vital Signs Temp Pulse Resp BP 97.7 F L 90 16 148/64 H 07/31/21 09:46 07/31/21 09:46 07/31/21 09:46 07/31/21 09:46 Weight: 80.286 kg Body Mass Index (BMI) 26.9 Physical Exam Const alert, oriented x3 and no apparent distress General Appearance: cooperative and comfortable HEENT normocephalic Eyes General Eye: normal appearance of both eyes Neck General: normal visual inspection Lymph Lymphatic: no lymphadenopathy noted and no lymphedema noted Resp normal respiratory effort Cardio regular rate and regular rhythm Skin Skin Narrative: Ulceration sites to the anterior right lower extremity and lateral right foot. Medial cicatrix noted. surrounding skin is intact soft, supple and atrophic. Wound Narrative: All wounds are secondary to previous surgical debridement for an abscess of the foot and anterior compartment of the lower extremity. Lateral foot ulceration right foot demonstrates improvement and granulating in nicely. Grafting product is intact. There is granular tissue with no localized erythema, no purulent drainage, no malodor or other localized signs of infection. Medial right foot wound has healed with stable cicatrix noted with no localized signs of infection. Right lower extremity anterior leg wound is granulating in with less exposed tendon of the extensor hallucis longus and anterior tibial tendon. Ulceration site is not as deep as previous visits and is closing proximally and distally. Wound bed is 100% granular with NuSpin full texture proximally and scant fibrotic tissue distally. Grafting product intact. Ulceration site demonstrates no surrounding erythema, no purulent drainage, no malodor, no red streaking up the leg, or other localized signs of infection. Neuro oriented x3 and moves all extremities Debridement Note Debridement Note Post-Debridement Measurements and Additional Note: Post-Debridement Measurements/Treatment WC - Nurse 1 - General Ulcer Assessment Start: 07/23/21 11:32 Freq: Status: Active Protocol: RUKHSANA Activity Type Activity Date Activity User E-Sign Co-Sign Detail Recorded Client Recorded Date Recorded By Document 07/24/21 13:42 AK [id number] 07/24/21 13:46 AK Document 07/31/21 09:46 KR [id number] 07/31/21 09:48 KR 07/24/21 07/31/21 13:42 09:46 - Today's Visit Information Type of service Follow-up Visit Follow-up Visit (Physician/DIALYSIS CHIEF EQUIPMENT TECHNICIAN (Physician/DIALYSIS CHIEF EQUIPMENT TECHNICIAN ) ) Arrival Mode Wheelchair Ambulatory Transfer Assistance None Transfer Assist (Other) MOM Patient Identification Verified (Name & Yes Yes ) Patient Requires Transmission-Based No Precautions Height and Weight Body Mass Index (BMI) 26.9 26.9 BMI Classification Overweight Overweight Vital Signs Temperature (97.8 F-99.1 F) 96.7 F L 97.7 F L Temperature Source Temporal Temporal Pulse Rate (60-100) 78 90 Pulse Location Monitor Monitor Respiratory Rate (12-18) 16 Respiratory rate source Observation Blood Pressure (90/60-120/80) 126/79 H 148/64 H Blood Pressure Mean (mm Hg) 94 92 Source Monitor Monitor Position Semi-Fowlers Blood Pressure Location Left Arm History Since Last Visit- (Skip if this is Patient's initial visit) Have you changed medications since your No No last visit? Any new allergies or adverse reactions No No Had a fall/change in ADL's that may No No increase risk of falls Signs or symptoms of abuse and/or No No neglect since last visit Have you been in the hospital since your No No last visit? Has dressing in place as prescribed Yes Yes Has compression in place as prescribed Yes N/A Has offloadiing in place as prescribed Yes N/A Experienced any changes in pain level or No No management Left Footwear No Footwear Regular Shoe Right Footwear Regular Shoe Regular Shoe Pain Scale: 0-10 Numeric Is Patient Pain Free? Yes Yes WC - Nurse 1 - General Ulcer Measurement Start: 07/23/21 11:32 Freq: Status: Active Protocol: Activity Type Activity Date Activity User E-Sign Co-Sign Detail Recorded Client Recorded Date Recorded By Document 07/24/21 13:42 AK [id number] 07/24/21 13:46 AK Document 07/31/21 09:46 KR [id number] 07/31/21 09:48 KR 07/24/21 07/31/21 13:42 09:46 Wound Center Nurse 1 #4 R LATERAL FOOT -Combined with other wound No -Current Size (cm) - Length 29 1.8 -Current Size (cm) - Width 5.1 2.5 -Current Size (cm) - Depth 0.1 0.1 -Total Square Cm 147.9 4.50 -Date of Last Picture (Recall this 07/24/21 field) -Photo Taken Yes -Tunneling No -Undermining/Tunneling No -Circular Undermining No -Exudate Amt Large Medium -Exudate Type Serosanguineous Serosanguineous -Wound Margin Distinct, Distinct, Outline Outline Attached Attached -Granulation Amt Small (1-33%) Medium (34-66%) -Granulation Quality Hagan Red -Slough/Fibrin Yes -Necrosis Amt Small (1-33%) Medium (34-66%) -Necrotic Tissue Type Adherent Slough Adherent Slough -Structure Exposed N/A -Texture (Marie-wound Skin Appearance) No Abnormality, Assessed, Assessed Scarring -Moisture (Marie-wound Skin Appearance) No Abnormality, No Abnormality, Assessed Assessed -Color (Marie-wound Skin Appearance) No Abnormality, No Abnormality, Assessed Assessed -Temperature (Marie-wound Skin No Abnormality No Abnormality Appearance) (Pt Warm) (Pt Warm) -Tenderness on Palpation (Marie-wound No No Skin Appearance) -Ulcer Cleansing Rinsed/ Soap and Water Irrigated with Saline -Foul Odor after Cleansing No No -Anesthetic Used 4% Lidocaine Solution #2 R MID LOWER LEG -Combined with other wound Yes -Combined with (Name of Wound-Exactly #4 RIGHT as it is documented) LATERAL FOOT -Current Size (cm) - Length 27.5 -Current Size (cm) - Width 4.0 -Current Size (cm) - Depth 0.3 -Total Square Cm 110.00 -Exudate Amt Large -Exudate Type Serosanguineous -Wound Margin Distinct, Outline Attached -Granulation Amt Large (67-100%) -Granulation Quality Red -Necrosis Amt None Present (0 %) -Texture (Marie-wound Skin Appearance) Assessed, Scarring -Moisture (Marie-wound Skin Appearance) No Abnormality, Assessed -Color (Marie-wound Skin Appearance) No Abnormality, Assessed -Temperature (Marie-wound Skin No Abnormality Appearance) (Pt Warm) -Tenderness on Palpation (Marie-wound No Skin Appearance) -Ulcer Cleansing Soap and Water -Foul Odor after Cleansing No -Anesthetic Used 4% Lidocaine Solution Right Calf (cm) 31 Right Ankle (cm) 21.7 WC - Nurse 2 - General Ulcer CM Notes Start: 07/23/21 11:32 Freq: Status: Active Protocol: Activity Type Activity Date Activity User E-Sign Co-Sign Detail Recorded Client Recorded Date Recorded By Document 07/31/21 13:00 PL [id number] 07/31/21 13:09 PL 07/31/21 13:00 Wound Center Nurse 2 #4 R LATERAL FOOT -Time 10:12 -Correct Patient Yes -Correct Side, Site, Position Yes -Correct Procedure Yes -Procedure Performed Yes -Type of Procedure Debridement -Clinical Debridement Subcutaneous -Tissue Removed Subcutaneous -Post Debridement (cm) - Length 1.8 -Post Debridement (cm) - Width 2.5 -Post Debridement (cm) - Depth 0.1 -Total Square (Post) (cm) 4.50 -Area of Debridement (cm) - Length 1.8 -Area of Debridement (cm) - Width 2.5 -Total Square (Area) (cm) 4.50 -Tunneling No -Undermining/Tunneling No -Circular Undermining No -Wound/Ulcer Outcome Not Healed -Ulcer Cleansing Rinsed/ Irrigated with Saline -Foul Odor after Cleansing No -Bioengineered Tissue Yes -Type of Bioengineered Tissue Theraskin -Expiration Date 12/15/24 -Product Lot Number [id number] -Percent Used 100 -Bleeding Controlled with Pressure -Treatment Response Procedure Tolerated Well -Debridement - Subq, 1st 20sq cm No -Apply Skin Sub - 1st 25 sq cm - Feet 1 -Theraskin (per sq cm) 6 #2 R MID LOWER LEG -Time 10:12 -Correct Patient Yes -Correct Side, Site, Position Yes -Correct Procedure Yes -Procedure Performed Yes -Type of Procedure Debridement -Clinical Debridement Subcutaneous -Tissue Removed Subcutaneous -Post Debridement (cm) - Length 27.5 -Post Debridement (cm) - Width 4.0 -Post Debridement (cm) - Depth 0.3 -Total Square (Post) (cm) 110.00 -Area of Debridement (cm) - Length 27.5 -Area of Debridement (cm) - Width 4.0 -Total Square (Area) (cm) 110.00 -Tunneling No -Undermining/Tunneling No -Circular Undermining No -Wound/Ulcer Outcome Not Healed -Ulcer Cleansing Rinsed/ Irrigated with Saline -Foul Odor after Cleansing No -Bioengineered Tissue Yes -Type of Bioengineered Tissue Theraskin -Expiration Date 07/18/25 -Product Lot Number [id number] -Percent Used 100 -Bleeding Controlled with Pressure -Treatment Response Procedure Tolerated Well -Debridement - Subq, 1st 20sq cm No -Apply Skin Sub - each addt'l 25 sq cm 1 - Legs -Apply Skin Sub - 1st 100 sq cm - Legs 1 -Theraskin (per sq cm) 116 Pain Scale: 0-10 Numeric Is Patient Pain Free? Yes WC - Nurse 3 - General Ulcer D/C NN Start: 07/23/21 11:32 Freq: Status: Active Protocol: Activity Type Activity Date Activity User E-Sign Co-Sign Detail Recorded Client Recorded Date Recorded By Document 07/24/21 13:29 NATY [id number] 07/24/21 13:31 JF Edit Result 07/24/21 13:29 JF (1) [id number] 07/25/21 07:29 PL (1) #2 R MID LOWER LEG - NPWT Application Charge NPWT </= 50 sq cm => NPWT - Multiple ($) => Locations 07/24/21 13:29 Wound Care Nurse 3 #4 R LATERAL FOOT -Ulcer Cleansing Rinsed/ Irrigated with Saline -Foul Odor after Cleansing No -Negative Pressure Wound Therapy Continue -Setting (mmHg) 125 -Negative Pressure is Continuous -NPWT Application Charge NPWT > 50 sq cm ($) #2 R MID LOWER LEG -Ulcer Cleansing Rinsed/ Irrigated with Saline -Foul Odor after Cleansing No -Negative Pressure Wound Therapy Continue -Setting (mmHg) 150 -Negative Pressure is Continuous -NPWT Application Charge NPWT - Multiple Locations Right -Compression Wrap Sebastian Wrap Pain Scale: 0-10 Numeric Is Patient Pain Free? Yes WC - Visit Discharge Discharge Condition Stable Ambulatory Status Ambulatory Transportation Private Auto Medication Reconcilliation completed & Yes provided to patient/care provider Clinical Summary of Care Provided Yes Assessment/Plan Assessment/Plan (1) Non-pressure 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: CODE(S): L97.212 - Non-pressure 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 (2) 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: CODE(S): L97.512 - 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 (3) Type 2 diabetes mellitus with diabetic polyneuropathy: CODE(S): E11.42 - Type 2 diabetes mellitus with diabetic polyneuropathy QUALIFIERS: Diabetes mellitus truck terminal manager insulin use: with truck terminal manager use Qualified Code(s): E11.42 - Type 2 diabetes mellitus with diabetic polyneuropathy; Z79.4 - assisted (current) use of 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 Alexand[address] and Dr. Gonzalez, podiatric specialist. She has history of MRSA infection. Her wounds are complicated by diabetes mellitus type 2 with peripheral polyneuropathy, Charcot joint deformity of the right foot, hypothyroidism. Following surgical debridement and recovery in the hospital she was on IV antibiotics vancomycin. Infectious disease discontinued her vancomycin and placed her on daptomycin. She was discharged to a retirement facility where they have been continuing daily dressing changes wet-to-dry Dakin's. Patient and daughter were unhappy with the nursing facility and changed to a different retirement facility where they were much happier with her care. She has since been discharged from the nursing facility to her home on 07/11/2021. She has been compliant with her nonweightbearing status to her right lower extremity. She is accompanied by her mother today to the wound care center for follow-up of her wounds to her right lower extremity. She is continuing to be compliant with wound VAC changes every 2 to 3 days to the right anterior leg and right lateral foot wounds. She has been continuing with HBO therapy but now cites dizziness and vomiting/dry heaving 2 days following a dive. She states she would like to stop. I discussed with her the importance of continuing HBO therapy as this is aiding to help progress her healing status. I discussed with her to may be tried diving every other day as she may be experiencing some form of oxygen toxicity. She states she will think about this. Skin substitute graft applied to to the right lower extremity anterior wound and right lateral foot wound. The right anterior lower extremity wound is closing at the most proximal and most distal portions with new skin coverage. TheraSkin graft is taking well to the wound bed and wound margins. Her wounds demonstrate no localized signs of infection. The surrounding skin is intact and atrophic. The medial right foot wound is healed with a stable cicatrix. TheraSkin graft applied to the right anterior lower extremity wound and right lateral foot wound and dressed with Adaptic touch and anchored with Steri-Strips. Wound VAC applied over the Adaptic touch to the right lower extremity anterior wound and lateral right foot. She is to continue to elevate the right lower extremity and remain in a nonweightbearing status to this extremity Her right lower extremity anterior wound is a Gonzalez grade 3 at her right lateral foot wound is a Gonzalez grade 3, right medial foot wound Gonzalez grade 3. She underwent a surgical debridement of all 3 of these Gonzalez grade 3 wounds to the right lower extremity on 05/23/2021 to drain a deep abscess and debride necrotic tissue and tendon. She underwent a second debridement procedure on 05/28/2021 to drain deep anterior compartment abscess of the right lower extremity. She had undergone and completed 8 weeks of IV vancomycin and her PICC line was pulled on 07/09/2021. There is no localized signs of infection to any of the right foot wounds. Grafting product is intact to the right anterior wound and right lateral foot wound. She continues to make good progress in her healing status. She is very pleased with her treatment progress. She is currently partaking in HBO therapy and will finish her recommended sessions of dives to completion. I discussed with her to continue to ensure proper diabetic glycemic control and intake of protein to ensure wound healing and graft take. I reviewed and discussed his case today. Debridement was performed today as noted in the clinical panel to all of the ulcer sites. The following work up and care recommendations were made: Dressing: Leave TheraSkin graft in place with Adaptic covering. Apply wound VAC over site right anterior leg wound and right lateral foot wound. Wound VAC to be changed every 48-72 hours and set at 125 mmHg of intermittent pressure Wash: Do not wash Tissue growth optimization: TheraSkin skin substitute right anterior leg wound and lateral foot wound Offload: Nonweightbearing right lower extremity with elevation via soft pillows Vascular: Edema: Wound VAC will aid in edema control along with elevation of lower extremity Infection: No localized signs of infection Pain: Continue with Motrin and Tylenol extra strength at home Host factors: History of MRSA and Enterococcus infection. Diabetes type 2 with peripheral polyneuropathy, discussed proper glycemic control and intake of protein to ensure wound healing. I answered all the patient's questions. To return to the wound healing center in 1 week or call sooner if the patient has any questions or concerns. The problems addressed require a low medical decision making level which includes two or more minor problems, a stable chronic illness, or an acute uncomplicated illness or injury. The medical decision making level is low. There is noted low risk of morbidity after considering this treatment plan and diagnostic data. Note: [employer] speech recognition counter caser software was used to create portions of this document. Sound-alike and misspelled words, as well as other counter caser errors may be contained in the documentation.
[2021-08-07 10:11] VITALS: BP 140/72; PULSE 81; TEMP 35.8; BMI 26.9
--- NOTE | 2021-08-07 10:56 | PN.PCM_ITS ---
History of Present Illness Date of Service: 08/07/21 Chief Complaint: right foot ulcer and Right Leg wound History of Wound: This 55-year-old female presents for care of right foot wound. She had surgery at [facility] in November 2020. She denies current fever, chill, nausea, vomiting. She denies delays in wound care and has been applying saline wet-to-dry to help with home health. She relates her bone biopsy that was obtained during her foot surgery was negative for osteomyelitis. She has a PICC placed and saw infectious disease specialist, Dr. Paez at [facility]. She relates she is almost complete with her IV antibiotic course. She is offloading with a surgical shoe. She takes nutritional supplementation including vitamin D and B. She denies claudication. She does have rest paresthesias. She is diabetic with an A1c of over 8%. She also has history of back injuries. Since her last visit, she reports she had thick fluid squirting out of the wound with application of her silver dressing. She was concerned it was infected and called in yesterday. She is advised by nursing staff to go to the emergency room if she thought she had a rapid onset infection. She relates she is scheduled to see her surgeon tomorrow. She did not obtain the previously ordered labs and foot x-rays. She denies current redness or odor. Medical records reviewed from and it is noted she had right foot incision and drainage of fifth metatarsal on 12-04-20. Her surgeon was Dr. Blanchard. She is advised wearing AFO brace. It is noted she started on Bactrim and then after the surgery she was placed on IV antibiotics. She later developed an infection of her right foot ulceration and underwent I&D with wide debridement on 05-23-21 and 05-28-[address] Alexandre and Dr. Gonzalez. Cultures were positive for MRSA and Enterococcus and was placed on IV Vancomycin by infectious disease. [facility] with instructions for wound vac application to right anterior leg and lateral right foot and wet to dry Dakin's dressings to the right foot. Allergies: Clindamycin Medications cyclo-Benzapril, NuvaRing, Advil, Cytomel, [place], armodafinil, Singulair, Synthroid, Lyrica Past medical history: diabetes and history of back surgery, ankle surgery, right knee arthroscopy Social history: former smoker and no current tobacco use; quit in 1981 Subjective Subjective This is a 55-year-old female who presents to the wound care center for follow-up of right anterior lower extremity wound, right lateral foot wound, and right medial foot wound status post incision and drainage of deep abscess and cellulitis on 06/13 and 05/28/2021. She states she is doing well at home and is changing the wound VAC dressings every 48 hours. She continues to deny any nausea, vomiting, chills, fever, shortness of breath, or other constitutional symptoms. She states that the site is becoming less painful each day and she is pleased with her TheraSkin graft and her healing progress today. She also states today that she has been having bouts of dizziness and nausea with vomiting/dry heaving 2 days after completing a full hyperbaric dive. She has not returned for dives since her episodes last week. She has no other complaints today. Objective Data Objective Data Vital Signs: Vital Signs Temp Pulse Resp BP 96.5 F L 81 16 140/72 H 08/07/21 10:11 08/07/21 10:11 07/31/21 09:46 08/07/21 10:11 Weight: 80.286 kg Body Mass Index (BMI) 26.9 Physical Exam Const alert, oriented x3 and no apparent distress General Appearance: cooperative and comfortable HEENT normocephalic Eyes General Eye: normal appearance of both eyes Neck General: normal visual inspection Lymph Lymphatic: no lymphadenopathy noted and no lymphedema noted Resp normal respiratory effort Cardio regular rate and regular rhythm Skin Skin Narrative: Ulceration sites to the anterior right lower extremity and lateral right foot. Medial cicatrix noted. surrounding skin is intact soft, supple and atrophic. Wound Narrative: All wounds are secondary to previous surgical debridement for an abscess of the foot and anterior compartment of the lower extremity. Lateral foot ulceration right foot demonstrates improvement and granulating in nicely. Grafting product is intact. There is granular tissue with no localized erythema, no purulent drainage, no malodor or other localized signs of infection. Medial right foot wound has healed with stable cicatrix noted with no localized signs of infection. Right lower extremity anterior leg wound is granulating in with less exposed tendon of the extensor hallucis longus and anterior tibial tendon. Ulceration site is not as deep as previous visits and is closing proximally and distally. Wound bed is 100% granular with goose pimple texture proximally and distally. Grafting product intact. Ulceration site demonstrates no surrounding erythema, no purulent drainage, no malodor, no red streaking up the leg, or other localized signs of infection. Neuro oriented x3 and moves all extremities Debridement Note Debridement Note No debridement was completed: No debridement was completed today Post-Debridement Measurements and Additional Note: Post-Debridement Measurements/Treatment - Nurse 1 - General Ulcer Assessment Start: 07/23/21 11:32 Freq: Status: Active Protocol: RUKHSANA Activity Type Activity Date Activity User E-Sign Co-Sign Detail Recorded Client Recorded Date Recorded By Document 07/24/21 13:42 AK [id number] 07/24/21 13:46 AK Document 07/31/21 09:46 KR [id number] 07/31/21 09:48 KR Document 08/07/21 10:11 AK [id number] 08/07/21 10:13 AK 07/24/21 07/31/21 08/07/21 13:42 09:46 10:11 - Today's Visit Information Type of service Follow-up Visit Follow-up Visit Follow-up Visit (Physician/HEAD ANIMAL KEEPER (Physician/HEAD ANIMAL KEEPER (Physician/HEAD ANIMAL KEEPER ) ) ) Arrival Mode Wheelchair Ambulatory Wheelchair Transfer Assistance None Transfer Assist (Other) MOM Patient Identification Verified (Name & Yes Yes Yes ) Patient Requires Transmission-Based No No Precautions Safety Precautions NA Height and Weight Body Mass Index (BMI) 26.9 26.9 26.9 BMI Classification Overweight Overweight Overweight Vital Signs Temperature (97.8 F-99.1 F) 96.7 F L 97.7 F L 96.5 F L Temperature Source Temporal Temporal Temporal Pulse Rate (60-100) 78 90 81 Pulse Location Monitor Monitor Respiratory Rate (12-18) 16 Respiratory rate source Observation Blood Pressure (90/60-120/80) 126/79 H 148/64 H 140/72 H Blood Pressure Mean (mm Hg) 94 92 94 Source Monitor Monitor Monitor Position Semi-Fowlers Blood Pressure Location Left Arm History Since Last Visit- (Skip if this is Patient's initial visit) Have you changed medications since your No No No last visit? Any new allergies or adverse reactions No No No Had a fall/change in ADL's that may No No No increase risk of falls Signs or symptoms of abuse and/or No No No neglect since last visit Have you been in the hospital since your No No No last visit? Has dressing in place as prescribed Yes Yes Yes Has compression in place as prescribed Yes N/A N/A Has offloadiing in place as prescribed Yes N/A N/A Experienced any changes in pain level or No No No management Left Footwear No Footwear Regular Shoe Right Footwear Regular Shoe Regular Shoe Pain Scale: 0-10 Numeric Is Patient Pain Free? Yes Yes Yes WC - Nurse 1 - General Ulcer Measurement Start: 07/23/21 11:32 Freq: Status: Active Protocol: Activity Type Activity Date Activity User E-Sign Co-Sign Detail Recorded Client Recorded Date Recorded By Document 07/24/21 13:42 AK [id number] 07/24/21 13:46 AK Document 07/31/21 09:46 KR [id number] 07/31/21 09:48 KR Document 08/07/21 10:11 AK [id number] 08/07/21 10:13 AK 07/24/21 07/31/21 08/07/21 13:42 09:46 10:11 Wound Center Nurse 1 #4 R LATERAL FOOT -Combined with other wound No Yes -Combined with (Name of Wound-Exactly mid lower leg as it is documented) -Current Size (cm) - Length 29 1.8 28 -Current Size (cm) - Width 5.1 2.5 4 -Current Size (cm) - Depth 0.1 0.1 0.1 -Total Square Cm 147.9 4.50 112 -Date of Last Picture (Recall this 07/24/21 field) -Photo Taken Yes No -Epithelialization None Present -Tunneling No No -Undermining/Tunneling No No -Circular Undermining No No -Change in Wound Grade/Stage No -Exudate Amt Large Medium Large -Exudate Type Serosanguineous Serosanguineous Serosanguineous -Wound Margin Distinct, Distinct, Distinct, Outline Outline Outline Attached Attached Attached -Granulation Amt Small (1-33%) Medium (34-66%) Large (67-100%) -Granulation Quality [place] Red [place],Red -Slough/Fibrin Yes -Necrosis Amt Small (1-33%) Medium (34-66%) Medium (34-66%) -Necrotic Tissue Type Adherent Slough Adherent Slough Adherent Slough -Structure Exposed N/A N/A -Texture (Marie-wound Skin Appearance) No Abnormality, Assessed, No Abnormality, Assessed Scarring Assessed -Moisture (Marie-wound Skin Appearance) No Abnormality, No Abnormality, No Abnormality, Assessed Assessed Assessed -Color (Marie-wound Skin Appearance) No Abnormality, No Abnormality, No Abnormality, Assessed Assessed Assessed -Temperature (Marie-wound Skin No Abnormality No Abnormality No Abnormality Appearance) (Pt Warm) (Pt Warm) (Pt Warm) -Tenderness on Palpation (Marie-wound No No No Skin Appearance) -Ulcer Cleansing Rinsed/ Soap and Water Rinsed/ Irrigated with Irrigated with Saline Saline -Foul Odor after Cleansing No No No -Anesthetic Used 4% Lidocaine 4% Lidocaine Solution Solution #2 R MID LOWER LEG -Combined with other wound Yes -Combined with (Name of Wound-Exactly #4 RIGHT as it is documented) LATERAL FOOT -Current Size (cm) - Length 27.5 -Current Size (cm) - Width 4.0 -Current Size (cm) - Depth 0.3 -Total Square Cm 110.00 -Exudate Amt Large -Exudate Type Serosanguineous -Wound Margin Distinct, Outline Attached -Granulation Amt Large (67-100%) -Granulation Quality Red -Necrosis Amt None Present (0 %) -Texture (Marie-wound Skin Appearance) Assessed, Scarring -Moisture (Marie-wound Skin Appearance) No Abnormality, Assessed -Color (Marie-wound Skin Appearance) No Abnormality, Assessed -Temperature (Marie-wound Skin No Abnormality Appearance) (Pt Warm) -Tenderness on Palpation (Marie-wound No Skin Appearance) -Ulcer Cleansing Soap and Water -Foul Odor after Cleansing No -Anesthetic Used 4% Lidocaine Solution Lower Limb Edema Present No Right Calf (cm) 31 Right Ankle (cm) 21.7 WC - Nurse 2 - General Ulcer CM Notes Start: 07/23/21 11:32 Freq: Status: Active Protocol: Activity Type Activity Date Activity User E-Sign Co-Sign Detail Recorded Client Recorded Date Recorded By Document 07/31/21 13:00 PL [id number] 07/31/21 13:09 PL 07/31/21 13:00 Wound Center Nurse 2 #4 R LATERAL FOOT -Time 10:12 -Correct Patient Yes -Correct Side, Site, Position Yes -Correct Procedure Yes -Procedure Performed Yes -Type of Procedure Debridement -Clinical Debridement Subcutaneous -Tissue Removed Subcutaneous -Post Debridement (cm) - Length 1.8 -Post Debridement (cm) - Width 2.5 -Post Debridement (cm) - Depth 0.1 -Total Square (Post) (cm) 4.50 -Area of Debridement (cm) - Length 1.8 -Area of Debridement (cm) - Width 2.5 -Total Square (Area) (cm) 4.50 -Tunneling No -Undermining/Tunneling No -Circular Undermining No -Wound/Ulcer Outcome Not Healed -Ulcer Cleansing Rinsed/ Irrigated with Saline -Foul Odor after Cleansing No -Bioengineered Tissue Yes -Type of Bioengineered Tissue Theraskin -Expiration Date 12/15/24 -Product Lot Number [id number] -Percent Used 100 -Bleeding Controlled with Pressure -Treatment Response Procedure Tolerated Well -Debridement - Subq, 1st 20sq cm No -Apply Skin Sub - 1st 25 sq cm - Feet 1 -Theraskin (per sq cm) 6 #2 R MID LOWER LEG -Time 10:12 -Correct Patient Yes -Correct Side, Site, Position Yes -Correct Procedure Yes -Procedure Performed Yes -Type of Procedure Debridement -Clinical Debridement Subcutaneous -Tissue Removed Subcutaneous -Post Debridement (cm) - Length 27.5 -Post Debridement (cm) - Width 4.0 -Post Debridement (cm) - Depth 0.3 -Total Square (Post) (cm) 110.00 -Area of Debridement (cm) - Length 27.5 -Area of Debridement (cm) - Width 4.0 -Total Square (Area) (cm) 110.00 -Tunneling No -Undermining/Tunneling No -Circular Undermining No -Wound/Ulcer Outcome Not Healed -Ulcer Cleansing Rinsed/ Irrigated with Saline -Foul Odor after Cleansing No -Bioengineered Tissue Yes -Type of Bioengineered Tissue Theraskin -Expiration Date 07/18/25 -Product Lot Number [id number] -Percent Used 100 -Bleeding Controlled with Pressure -Treatment Response Procedure Tolerated Well -Debridement - Subq, 1st 20sq cm No -Apply Skin Sub - each addt'l 25 sq cm 1 - Legs -Apply Skin Sub - 1st 100 sq cm - Legs 1 -[place]in (per sq cm) 116 Pain Scale: 0-10 Numeric Is Patient Pain Free? Yes - Nurse 3 - General Ulcer D/C NN Start: 07/23/21 11:32 Freq: Status: Active Protocol: Activity Type Activity Date Activity User E-Sign Co-Sign Detail Recorded Client Recorded Date Recorded By Document 07/24/21 13:29 JF [id number] 07/24/21 13:31 JF Edit Result 07/24/21 13:29 JF (1) [id number] 07/25/21 07:29 PL Document 07/31/21 07:10 PL [id number] 08/01/21 07:12 PL (1) #2 R MID LOWER LEG - NPWT Application Charge NPWT </= 50 sq cm => NPWT - Multiple ($) => Locations 07/24/21 07/31/21 13:29 07:10 Wound Care Nurse 3 #4 R LATERAL FOOT -Ulcer Cleansing Rinsed/ Irrigated with Saline -Foul Odor after Cleansing No -Negative Pressure Wound Therapy Continue Continue -Setting (mmHg) 125 125 -Negative Pressure is Continuous Continuous -NPWT Application Charge NPWT > 50 sq cm NPWT > 50 sq cm ($) ($) #2 R MID LOWER LEG -Ulcer Cleansing Rinsed/ Irrigated with Saline -Foul Odor after Cleansing No -Negative Pressure Wound Therapy Continue Continue -Setting (mmHg) 150 125 -Negative Pressure is Continuous Continuous -NPWT Application Charge NPWT - Multiple NPWT - Multiple Locations Locations Right -Compression Wrap Sebastian Wrap Pain Scale: 0-10 Numeric Is Patient Pain Free? 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: CODE(S): L97.512 - 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 (3) Type 2 diabetes mellitus with diabetic polyneuropathy: CODE(S): E11.42 - Type 2 diabetes mellitus with diabetic polyneuropathy QUALIFIERS: Diabetes mellitus snf insulin use: with snf use Qualified Code(s): E11.42 - Type 2 diabetes mellitus with diabetic polyneuropathy; 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 Alexand[address] and Dr. Gonzalez, podiatric specialist. She has history of MRSA infection. Her wounds are complicated by diabetes mellitus type 2 with peripheral polyneuropathy, Charcot joint deformity of the right foot, hypothyroidism. Following surgical debridement and recovery in the hospital she was on IV antibiotics vancomycin. Infectious disease discontinued her vancomycin and placed her on daptomycin. She was [facility] a jail facility where they have been continuing daily dressing changes wet-to-dry Dakin's. Patient and daughter were unhappy with the nursing facility and changed to a different jail facility where they were much happier with her care. She has since been discharged from the nursing facility to her home on 07/11/2021. She has been compliant with her nonweightbearing status to her right lower extremity. She is accompanied by her mother today to the wound care center for follow-up of her wounds to her right lower extremity. She is continuing to be compliant with wound VAC changes every 2 to 3 days to the right anterior leg and right lateral foot wounds. She has been continuing with HBO therapy but now cites dizziness and vomiting/dry heaving 2 days following a dive. She has not dived since last week. I discussed with her the importance of continuing HBO therapy as this is aiding to help progress her healing status. I discussed with her to try diving every other day as she may be experiencing some form of oxygen toxicity from daily dives. She states she will think about this. Skin substitute graft intact to to the right lower extremity anterior wound and right lateral foot wound. The right anterior lower extremity wound is closing at the most proximal and most distal portions with new skin coverage. TheraSkin graft is taking well to the wound bed and wound margins. Her wounds demonstrate no localized signs of infection. The surrounding skin is intact and atrophic. The medial right foot wound is healed with a stable cicatrix. TheraSkin graft intact to the right anterior lower extremity wound and right lateral foot wound. Sites were dressed with Adaptic touch and anchored with Steri-Strips. Wound VAC applied over the Adaptic touch to the right lower extremity anterior wound and lateral right foot. She is to continue to elevate the right lower extremity and remain in a nonweightbearing status to this extremity. She is now citing some contact irritation from the wound VAC adhesive dressings. Discussed switching to a silicone-based wound VAC dressing to decrease irritation to the site and so that she may remain compliant in use of her wound VAC. Her right lower extremity anterior wound is a Gonzalez grade 3 at her right lateral foot wound is a Gonzalez grade 3, right medial foot wound Gonzalez grade 3. She underwent a surgical debridement of all 3 of these Gonzalez grade 3 wounds to the right lower extremity on 05/23/2021 to drain a deep abscess and debride necrotic tissue and tendon. She underwent a second debridement procedure on 05/28/2021 to drain deep anterior compartment abscess of the right lower ex tremity. She had undergone and completed 8 weeks of IV vancomycin and her PICC line was pulled on 07/09/2021. There is no localized signs of infection to any of the right foot wounds. Grafting product is intact to the right anterior wound and right lateral foot wound. She continues to make good progress in her healing status. She is very pleased with her treatment progress. I discussed with her to continue to ensure proper diabetic glycemic control and intake of protein to ensure wound healing and graft take. I reviewed and discussed his case today. Debridement was performed today as no fe in the clinical panel to all of the ulcer sites. The following work up and care recommendations were made: Dressing: Leave TheraSkin graft in place with Adaptic covering. Apply wound VAC over site right anterior leg wound and right lateral foot wound. Wound VAC to be changed every 48-72 hours and set at 125 mmHg of intermittent pressure Wash: Do not wash Tissue growth optimization: TheraSkin skin substitute right anterior leg wound and lateral foot wound Offload: Nonweightbearing right lower extremity with elevation via soft pillows Vascular: Edema: Wound VAC will aid in edema control along with elevation of lower extremity Infection: No localized signs of infection Pain: Continue with Motrin and Tylenol extra strength at home Host factors: History of MRSA and Enterococcus infection. Diabetes type 2 with peripheral polyneuropathy, discussed proper glycemic control and intake of protein to ensure wound healing. I answered all the patient's questions. To return to the wound healing center in 1 week or call sooner if the patient has any questions or concerns. The problems addressed require a low medical decision making level which includes two or more minor problems, a stable chronic illness, or an acute uncomplicated illness or injury. The medical decision making level is low. There is noted low risk of morbidity after considering this treatment plan and diagnostic data. Note: [employer] speech recognition copier technician software was used to create portions of this document. Sound-alike and misspelled words, as well as other copier technician errors may be contained in the documentation.
[2021-08-14 10:39] VITALS: BP 134/52; PULSE 107; BMI 26.9
--- NOTE | 2021-08-14 15:41 | PN.PCM_ITS ---
History of Present Illness Date of Service: 08/14/21 Chief Complaint: right foot ulcer and Right Leg wound History of Wound: This 55-year-old female presents for care of right foot wound. She had surgery at [facility] in November 2020. She denies current fever, chill, nausea, vomiting. She denies delays in wound care and has been applying saline wet-to-dry to help with home health. She relates her bone biopsy that was obtained during her foot surgery was negative for osteomyelitis. She has a PICC placed and saw infectious disease specialist, Dr. Paez at [facility]. She relates she is almost complete with her IV antibiotic course. She is offloading with a surgical shoe. She takes nutritional supplementation including vitamin D and B. She denies claudication. She does have rest paresthesias. She is diabetic with an A1c of over 8%. She also has history of back injuries. Since her last visit, she reports she had thick fluid squirting out of the wound with application of her silver dressing. She was concerned it was infected and called in yesterday. She is advised by nursing staff to go to the emergency room if she thought she had a rapid onset infection. She relates she is scheduled to see her surgeon tomorrow. She did not obtain the previously ordered labs and foot x-rays. She denies current redness or odor. Medical records reviewed from and it is noted she had right foot incision and drainage of fifth metatarsal on 12-04-20. Her surgeon was Dr. Blanchard. She is advised wearing AFO brace. It is noted she started on Bactrim and then after the surgery she was placed on IV antibiotics. She later developed an infection of her right foot ulceration and underwent I&D with wide debridement on 05-23-21 and 05-28-[address] Alexandre and Dr. Gonzalez. Cultures were positive for MRSA and Enterococcus and was placed on IV Vancomycin by infectious disease. She was discharged to a senior living facility with instructions for wound vac application to right anterior leg and lateral right foot and wet to dry Dakin's dressings to the right foot. Allergies: Clindamycin Medications cyclo-Benzapril, NuvaRing, Advil, Cytomel, Dolphin, armodafinil, Singulair, Synthroid, Lyrica Past medical history: diabetes and history of back surgery, ankle surgery, right knee arthroscopy Social history: former smoker and no current tobacco use; quit in 1981 Subjective Subjective This is a 55-year-old female who presents to the wound care center for follow-up of right anterior lower extremity wound, right lateral foot wound, and right medial foot wound status post incision and drainage of deep abscess and cellulitis on 06/13 and 05/28/2021. She states she is doing well at home and is changing the wound VAC dressings every 48 hours. She continues to deny any nausea, vomiting, chills, fever, shortness of breath, or other constitutional symptoms. She states that the site is becoming less painful each day and she is pleased with her TheraSkin graft and her healing progress today. She also states today that she has been having bouts of dizziness and nausea with vomiting/dry heaving 2 days after completing a full hyperbaric dive. She has not returned for dives since her episodes two weeks ago. She states she is willing to continue hyperbaric dives. She has no other complaints today. Objective Data Objective Data Vital Signs: Vital Signs Temp Pulse Resp BP 96.5 F L 107 H 16 134/52 H 08/07/21 10:11 08/14/21 10:39 07/31/21 09:46 08/14/21 10:39 Weight: 80.286 kg Body Mass Index (BMI) 26.9 Physical Exam Const alert, oriented x3 and no apparent distress General Appearance: cooperative and comfortable HEENT normocephalic Eyes General Eye: normal appearance of both eyes Neck General: normal visual inspection Lymph Lymphatic: no lymphadenopathy noted and no lymphedema noted Resp normal respiratory effort Cardio regular rate and regular rhythm Skin Skin Narrative: Ulceration sites to the anterior right lower extremity and lateral right foot. Medial cicatrix noted. surrounding skin is intact soft, supple and atrophic. Wound Narrative: All wounds are secondary to previous surgical debridement for an abscess of the foot and anterior compartment of the lower extremity. Lateral foot ulceration right foot demonstrates improvement and granulating in nicely. Grafting product is intact. There is granular tissue with no localized eryt michelle, no purulent drainage, no malodor or other localized signs of infection. Medial right foot wound has healed with stable cicatrix noted with no localized signs of infection. Right lower extremity anterior leg wound is granulating in with less exposed tendon of the extensor hallucis longus and anterior tibial tendon. Ulceration site is not as deep as previous visits and is closing proximally and distally. Wound bed is 100% granular with goose pimple texture proximally and distally. Grafting product intact. Ulceration site demonstrates no surrounding erythema, no purulent drainage, no malodor, no red streaking up the leg, or other localized signs of infection. Neuro oriented x3 and moves all extremities Debridement Note Debridement Note Wound debrided: Right anterior leg Laterality: Right Wound Grade/Stage: Gonzalez stage III Type of Debridement: Excisional debridement Depth: in the subcutaneous layer Percentage of wound debrided: 100 Instrument Used: #15 blade Tissue Removed: Fibrous, devitalized subcutaneous, biofilm, slough Severity: Fat Layer Exposed Amount of bleeding with debridement: Mild Bleeding Controlled with: Pressure Patient tolerated procedure: Patient tolerated procedure well Post-Debridement Measurements and Additional Note: Post-Debridement Measurements/Treatment - Nurse 1 - General Ulcer Assessment Start: 07/23/21 11:32 Freq: Status: Active Protocol: RUKHSANA Activity Type Activity Date Activity User E-Sign Co-Sign Detail Recorded Client Recorded Date Recorded By Document 07/24/21 13:42 HI [id number] 07/24/21 13:46 AK Document 07/31/21 09:46 KR [id number] 07/31/21 09:48 KR Document 08/07/21 10:11 AK [id number] 08/07/21 10:13 AK Document 08/14/21 10:39 AK [id number] 08/14/21 10:53 AK 07/24/21 07/31/21 08/07/21 13:42 09:46 10:11 - Today's Visit Information Type of service Follow-up Visit Follow-up Visit Follow-up Visit (Physician/DESIGN TECHNOLOGY PROFESSOR (Physician/DESIGN TECHNOLOGY PROFESSOR (Physician/DESIGN TECHNOLOGY PROFESSOR ) ) ) Arrival Mode Wheelchair Ambulatory Wheelchair Transfer Assistance None Transfer Assist (Other) MOM Patient Identification Verified (Name & Yes Yes Yes ) Patient Requires Transmission-Based No No Precautions Safety Precautions NA Height and Weight Body Mass Index (BMI) 26.9 26.9 26.9 BMI Classification Overweight Overweight Overweight Vital Signs Temperature (97.8 F-99.1 F) 96.7 F L 97.7 F L 96.5 F L Temperature Source Temporal Temporal Temporal Pulse Rate (60-100) 78 90 81 Pulse Location Monitor Monitor Respiratory Rate (12-18) 16 Respiratory rate source Observation Blood Pressure (90/60-120/80) 126/79 H 148/64 H 140/72 H Blood Pressure Mean (mm Hg) 94 92 94 Source Monitor Monitor Monitor Position Semi-Fowlers Blood Pressure Location Left Arm History Since Last Visit- (Skip if this is Patient's initial visit) Have you changed medications since your No No No last visit? Any new allergies or adverse reactions No No No Had a fall/change in ADL's that may No No No increase risk of falls Signs or symptoms of abuse and/or No No No neglect since last visit Have you been in the hospital since your No No No last visit? Has dressing in place as prescribed Yes Yes Yes Has compression in place as prescribed Yes N/A N/A Has offloadiing in place as prescribed Yes N/A N/A Experienced any changes in pain level or No No No management Left Footwear No Footwear Regular Shoe Right Footwear Regular Shoe Regular Shoe Pain Scale: 0-10 Numeric Is Patient Pain Free? Yes Yes Yes 08/14/21 10:39 WC - Today's Visit Information Type of service Follow-up Visit (Physician/DESIGN TECHNOLOGY PROFESSOR ) Arrival Mode Wheelchair Transfer Assistance Transfer Assist (Other) Patient Identification Verified (Name & Yes ) Patient Requires Transmission-Based No Precautions Safety Precautions NA Height and Weight Body Mass Index (BMI) 26.9 BMI Classification Overweight Vital Signs Temperature (97.8 F-99.1 F) Temperature Source Pulse Rate (60-100) 107 H Pulse Location Monitor Respiratory Rate (12-18) Respiratory rate source Blood Pressure (90/60-120/80) 134/52 H Blood Pressure Mean (mm Hg) 79 Source Monitor Position Blood Pressure Location History Since Last Visit- (Skip if this is Patient's initial visit) Have you changed medications since your No last visit? Any new allergies or adverse reactions No Had a fall/change in ADL's that may No increase risk of falls Signs or symptoms of abuse and/or No neglect since last visit Have you been in the hospital since your No last visit? Has dressing in place as prescribed Yes Has compression in place as prescribed N/A Has offloadiing in place as prescribed N/A Experienced any changes in pain level or No management Left Footwear Regular Shoe Right Footwear Pain Scale: 0-10 Numeric Is Patient Pain Free? Yes WC - Nurse 1 - General Ulcer Measurement Start: 07/23/21 11:32 Freq: Status: Active Protocol: Activity Type Activity Date Activity User E-Sign Co-Sign Detail Recorded Client Recorded Date Recorded By Document 07/24/21 13:42 AK [id number] 07/24/21 13:46 AK Document 07/31/21 09:46 KR [id number] 07/31/21 09:48 KR Document 08/07/21 10:11 AK [id number] 08/07/21 10:13 AK Document 08/14/21 10:39 AK [id number] 08/14/21 10:53 AK 07/24/21 07/31/21 08/07/21 13:42 09:46 10:11 Wound Center Nurse 1 #4 R LATERAL FOOT -Combined with other wound No Yes -Combined with (Name of Wound-Exactly mid lower leg as it is documented) -Current Size (cm) - Length 29 1.8 28 -Current Size (cm) - Width 5.1 2.5 4 -Current Size (cm) - Depth 0.1 0.1 0.1 -Total Square Cm 147.9 4.50 112 -Date of Last Picture (Recall this 07/24/21 field) -Photo Taken Yes No -Epithelialization None Present -Tunneling No No -Undermining/Tunneling No No -Circular Undermining No No -Change in Wound Grade/Stage No -Exudate Amt Large Medium Large -Exudate Type Serosanguineous Serosanguineous Serosanguineous -Wound Margin Distinct, Distinct, Distinct, Outline Outline Outline Attached Attached Attached -Granulation Amt Small (1-33%) Medium (34-66%) Large (67-100%) -Granulation Quality [place] Red [place],Red -Slough/Fibrin Yes -Necrosis Amt Small (1-33%) Medium (34-66%) Medium (34-66%) -Necrotic Tissue Type Adherent Slough Adherent Slough Adherent Slough -Structure Exposed N/A N/A -Texture (Marie-wound Skin Appearance) No Abnormality, Assessed, No Abnormality, Assessed Scarring Assessed -Moisture (Marie-wound Skin Appearance) No Abnormality, No Abnormality, No Abnormality, Assessed Assessed Assessed -Color (Marie-wound Skin Appearance) No Abnormality, No Abnormality, No Abnormality, Assessed Assessed Assessed -Temperature (Marie-wound Skin No Abnormality No Abnormality No Abnormality Appearance) (Pt Warm) (Pt Warm) (Pt Warm) -Tenderness on Palpation (Marie-wound No No No Skin Appearance) -Ulcer Cleansing Rinsed/ Soap and Water Rinsed/ Irrigated with Irrigated with Saline Saline -Foul Odor after Cleansing No No No -Anesthetic Used 4% Lidocaine 4% Lidocaine Solution Solution #2 R MID LOWER LEG -Combined with other wound Yes -Combined with (Name of Wound-Exactly #4 RIGHT as it is documented) LATERAL FOOT -Current Size (cm) - Length 27.5 -Current Size (cm) - Width 4.0 -Current Size (cm) - Depth 0.3 -Total Square Cm 110.00 -Photo Taken -Tunneling -Undermining/Tunneling -Circular Undermining -Exudate Amt Large -Exudate Type Serosanguineous -Wound Margin Distinct, Outline Attached -Granulation Amt Large (67-100%) -Granulation Quality Red -Slough/Fibrin -Necrosis Amt None Present (0 %) -Necrotic Tissue Type -Structure Exposed -Texture (Marie-wound Skin Appearance) Assessed, Scarring -Moisture (Marie-wound Skin Appearance) No Abnormality, Assessed -Color (Marie-wound Skin Appearance) No Abnormality, Assessed -Temperature (Marie-wound Skin No Abnormality Appearance) (Pt Warm) -Tenderness on Palpation (Marie-wound No Skin Appearance) -Ulcer Cleansing Soap and Water -Foul Odor after Cleansing No -Anesthetic Used 4% Lidocaine Solution Lower Limb Edema Present No Right Calf (cm) 31 Right Ankle (cm) 21.7 08/14/21 10:39 Wound Center Nurse 1 #4 R LATERAL FOOT -Combined with other wound No -Combined with (Name of Wound-Exactly as it is documented) -Current Size (cm) - Length 0.1 -Current Size (cm) - Width 0.1 -Current Size (cm) - Depth 0.1 -Total Square Cm 0.01 -Date of Last Picture (Recall this field) -Photo Taken No -Epithelialization -Tunneling No -Undermining/Tunneling No -Circular Undermining No -Change in Wound Grade/Stage No -Exudate Amt Medium -Exudate Type Serosanguineous -Wound Margin Distinct, Outline Attached -Granulation Amt Medium (34-66%) -Granulation Quality N/A -Slough/Fibrin Yes -Necrosis Amt Small (1-33%) -Necrotic Tissue Type Adherent Slough -Structure Exposed N/A -Texture (Marie-wound Skin Appearance) No Abnormality, Assessed -Moisture (Marie-wound Skin Appearance) No Abnormality, Assessed -Color (Marie-wound Skin Appearance) No Abnormality, Assessed -Temperature (Marie-wound Skin No Abnormality Appearance) (Pt Warm) -Tenderness on Palpation (Marie-wound No Skin Appearance) -Ulcer Cleansing Soap and Water -Foul Odor after Cleansing No -Anesthetic Used 4% Lidocaine Solution #2 R MID LOWER LEG -Combined with other wound No -Combined with (Name of Wound-Exactly as it is documented) -Current Size (cm) - Length 27 -Current Size (cm) - Width 4.8 -Current Size (cm) - Depth 0.1 -Total Square Cm 129.6 -Photo Taken No -Tunneling No -Undermining/Tunneling No -Circular Undermining No -Exudate Amt Medium -Exudate Type Serosanguineous -Wound Margin Distinct, Outline Attached -Granulation Amt Small (1-33%) -Granulation Quality N/A -Slough/Fibrin Yes -Necrosis Amt Small (1-33%) -Necrotic Tissue Type Adherent Slough -Structure Exposed N/A -Texture (Marie-wound Skin Appearance) Assessed, Scarring -Moisture (Marie-wound Skin Appearance) No Abnormality, Assessed -Color (Marie-wound Skin Appearance) No Abnormality, Assessed -Temperature (Marie-wound Skin No Abnormality Appearance) (Pt Warm) -Tenderness on Palpation (Marie-wound No Skin Appearance) -Ulcer Cleansing Soap and Water -Foul Odor after Cleansing No -Anesthetic Used 4% Lidocaine Solution Lower Limb Edema Present Right Calf (cm) Right Ankle (cm) WC - Nurse 2 - General Ulcer CM Notes Start: 07/23/21 11:32 Freq: Status: Active Protocol: Activity Type Activity Date Activity User E-Sign Co-Sign Detail Recorded Client Recorded Date Recorded By Document 07/31/21 13:00 PL [id number] 07/31/21 13:09 PL Document 08/14/21 14:34 PL [id number] 08/14/21 14:40 PL 07/31/21 08/14/21 13:00 14:34 Wound Center Nurse 2 #4 R LATERAL FOOT -Time 10:12 11:23 -Correct Patient Yes Yes -Correct Side, Site, Position Yes Yes -Correct Procedure Yes Yes -Procedure Performed Yes Yes -Type of Procedure Debridement Debridement -Clinical Debridement Subcutaneous Subcutaneous -Tissue Removed Subcutaneous Subcutaneous -Post Debridement (cm) - Length 1.8 1.0 -Post Debridement (cm) - Width 2.5 2.0 -Post Debridement (cm) - Depth 0.1 0.1 -Total Square (Post) (cm) 4.50 2.00 -Area of Debridement (cm) - Length 1.8 1.0 -Area of Debridement (cm) - Width 2.5 2.0 -Total Square (Area) (cm) 4.50 2.00 -Tunneling No No -Undermining/Tunneling No No -Circular Undermining No No -Wound/Ulcer Outcome Not Healed Not Healed -Ulcer Cleansing Rinsed/ Rinsed/ Irrigated with Irrigated with Saline Saline -Foul Odor after Cleansing No No -Bioengineered Tissue Yes No -Type of Bioengineered Tissue Theraskin -Expiration Date 12/15/24 -Product Lot Number [id number] -Percent Used 100 -Bleeding Controlled with Pressure Pressure -Treatment Response Procedure Procedure Tolerated Well Tolerated Well -Debridement - Subq, 1st 20sq cm No No -Apply Skin Sub - 1st 25 sq cm - Feet 1 -Theraskin (per sq cm) 6 #2 R MID LOWER LEG -Time 10:12 11:23 -Correct Patient Yes Yes -Correct Side, Site, Position Yes Yes -Correct Procedure Yes Yes -Procedure Performed Yes Yes -Type of Procedure Debridement Debridement -Clinical Debridement Subcutaneous Subcutaneous -Tissue Removed Subcutaneous Subcutaneous -Post Debridement (cm) - Length 27.5 27 -Post Debridement (cm) - Width 4.0 4.8 -Post Debridement (cm) - Depth 0.3 0.1 -Total Square (Post) (cm) 110.00 129.6 -Area of Debridement (cm) - Length 27.5 27 -Area of Debridement (cm) - Width 4.0 4.8 -Total Square (Area) (cm) 110.00 129.6 -Tunneling No No -Undermining/Tunneling No No -Circular Undermining No No -Wound/Ulcer Outcome Not Healed Healed- Surgical Closure -Ulcer Cleansing Rinsed/ Irrigated with Saline -Foul Odor after Cleansing No No -Bioengineered Tissue Yes Yes -Type of Bioengineered Tissue Theraskin Theraskin -Expiration Date 07/18/25 07/18/25 -Product Lot Number [id number] -Percent Used 100 100 -Lot number of Saline Used [id number] -Bleeding Controlled with Pressure Pressure -Treatment Response Procedure Procedure Tolerated Well Tolerated Well -Debridement - Subq, 1st 20sq cm No No -Apply Skin Sub - each addt'l 25 sq cm 1 - Legs -Apply Skin Sub - 1st 100 sq cm - Legs 1 1 -Apply Skin Sub - each addt'l 100 sq 1 cm - Legs -Theraskin (per sq cm) 116 116 Pain Scale: 0-10 Numeric Is Patient Pain Free? Yes Yes WC - Nurse 3 - General Ulcer D/C NN Start: 07/23/21 11:32 Freq: Status: Active Protocol: Activity Type Activity Date Activity User E-Sign Co-Sign Detail Recorded Client Recorded Date Recorded By Document 07/24/21 13:29 JF [id number] 07/24/21 13:31 JF Edit Result 07/24/21 13:29 JF (1) [id number] 07/25/21 07:29 PL Document 07/31/21 07:10 PL [id number] 08/01/21 07:12 PL Document 08/14/21 12:01 AK [id number] 08/14/21 12:03 AK (1) #2 R MID LOWER LEG - NPWT Application Charge NPWT </= 50 sq cm => NPWT - Multiple ($) => Locations 07/24/21 07/31/21 08/14/21 13:29 07:10 12:01 Wound Care Nurse 3 #4 R LATERAL FOOT -Ulcer Cleansing Rinsed/ Irrigated with Saline -Foul Odor after Cleansing No No -Negative Pressure Wound Therapy Continue Continue Continue -Setting (mmHg) 125 125 125 -Negative Pressure is Continuous Continuous Intermittent -NPWT Application Charge NPWT > 50 sq cm NPWT > 50 sq cm NPWT </= 50 sq ($) ($) cm ($) #2 R MID LOWER LEG -Ulcer Cleansing Rinsed/ Irrigated with Saline -Foul Odor after Cleansing No -Negative Pressure Wound Therapy Continue Continue Continue -Setting (mmHg) 150 125 -Negative Pressure is Continuous Continuous Continuous -NPWT Application Charge NPWT - Multiple NPWT - Multiple NPWT </= 50 sq Locations Locations cm ($) Right -Compression Wrap Sebastian Wrap Pain Scale: 0-10 Numeric Is Patient Pain Free? Yes Yes Yes WC - Visit Discharge Discharge Condition Stable Stable Ambulatory Status Ambulatory Wheelchair Transportation Private Auto Private Auto Accompanied by mom Medication Reconcilliation completed & Yes Yes provided to patient/care provider Clinical Summary of Care Provided Yes Yes Additional Wound Wound debrided: Right lateral foot Laterality: Right Wound Grade/Stage: Gonzalez stage III Type of Debridement: Excisional debridement Depth: in the subcutaneous layer Percentage of wound debrided: 100 Instrument Used: #15 blade Tissue Removed: Fibrous, devitalized subcutaneous, biofilm, slough Severity: Fat Layer Exposed Amount of bleeding with debridement: Mild Bleeding Controlled with: Pressure Patient tolerated procedure: Patient tolerated procedure well Assessment/Plan Assessment/Plan (1) Non-pressure 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: CODE(S): L97.212 - Non-pressure 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 (2) 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: CODE(S): L97.512 - 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 (3) Type 2 diabetes mellitus with diabetic polyneuropathy: CODE(S): E11.42 - Type 2 diabetes mellitus with diabetic polyneuropathy QUALIFIERS: Diabetes mellitus oysterman insulin use: with assisted use Qualified Code(s): E11.42 - Type 2 diabetes mellitus with diabetic polyneuropathy; Z79.4 - detention (current) use of insulin (4) Charcot's joint of right foot: CODE(S): M14.671 - Charcot's joint, right ankle and foot (5) Hypothyroidism: CODE(S): E03.9 - Hypothyroidism, unspecified QUALIFIERS: Hypothyroidism type: unspecified Qualified Code(s): E03.9 - Hypothyroidism, unspecified (6) Type 2 diabetes mellitus with foot ulcer: CODE(S): E11.621 - Type 2 diabetes mellitus with foot ulcer; L97.509 - Non-pressure chronic ulcer of other part of unspecified foot with unspecified severity PLAN: This is a 55-year-old female with history of wide I&D and deep debridement of the right foot and ankle from 05/23/2021 and 05/28/[address] Alexand[address] and Dr. Gonzalez, podiatric specialist. She has history of MRSA infection. Her wounds are complicated by diabetes mellitus type 2 with peripheral polyneuropathy, Charcot joint deformity of the right foot, hypothyroidism. Following surgical debridement and recovery in the hospital she was on IV antibiotics vancomycin. Infectious disease discontinued her vancomycin and placed her on daptomycin. She was discharged to a senior living facility where they have been continuing daily dressing changes wet-to-dry Dakin's. Patient and daughter were unhappy with the nursing facility and changed to a different senior living facility where they were much happier with her care. She has since been discharged from the nursing facility to her home on 07/11/2021. She has been compliant with her nonweightbearing status to her right lower extremity. She is accompanied by her mother today to the wound care center for follow-up of her wounds to her right lower extremity. She is continuing to be compliant with wound VAC changes every 2 to 3 days to the right anterior leg and right lateral foot wounds. She has been continuing with HBO therapy but now cites dizziness and vomiting/dry heaving 2 days following a dive. She has not completed a dive for 2 weeks. I discussed with her the importance of continuing HBO therapy as this is aiding to help progress her healing status. I discussed with her to try diving every other day as she may be experiencing some form of oxygen toxicity from daily dives. She is amendable to performing dives again. TheraSkin graft applied to the right lower extremity anterior wound and right lateral foot wound. The right anterior lower extremity wound is closing at the most proximal and most distal portions with new skin coverage. TheraSkin graft is taking well to the wound bed and wound margins. Her wounds demonstrate no localized signs of infection. The surrounding skin is intact and atrophic. The medial right foot wound is healed with a stable cicatrix. TheraSkin graft applied to the right anterior lower extremity wound and right lateral foot wound. Sites were dressed with Adaptic touch and anchored with Steri-Strips. Wound VAC applied over the Adaptic touch to the right lower extremity anterior wound and lateral right foot. She is to continue to elevate the right lower extremity and remain in a nonweightbearing status to this extremity. A silicone- based wound VAC dressing applied to decrease irritation to the site and so that she may remain compliant in use of her wound VAC. Her right lower extremity anterior wound is a Gonzalez grade 3 at her right lateral foot wound is a Gonzalez grade 3, right medial foot wound Gonzalez grade 3. She underwent a surgical debridement of all 3 of these Gonzalez grade 3 wounds to the right lower extremity on 05/23/2021 to drain a deep abscess and debride necrotic tissue and tendon. She underwent a second debridement procedure on 05/28/2021 to drain deep anterior compartment abscess of the right lower extremity. She had undergone and completed 8 weeks of IV vancomycin and her PICC line was pulled on 07/09/2021. There is no localized signs of infection to any of the right foot wounds. Grafting product is applied to the right anterior wound and right lateral foot wound. She continues to make good progress in her healing status. She is very pleased with her treatment progress. I discussed with her to continue to ensure proper diabetic glycemic control and intake of protein to ensure wound healing and graft take. I reviewed and discussed his case today. Debridement was performed today as noted in the clinical panel to all of the ulcer sites. The following work up and care recommendations were made: Dressing: Leave TheraSkin graft in place with Adaptic covering. Apply wound VAC over site right anterior leg wound and right lateral foot wound. Wound VAC to be changed every 48-72 hours and set at 125 mmHg of intermittent pressure Wash: Do not wash Tissue growth optimization: TheraSkin skin substitute right anterior leg wound and lateral foot wound Offload: Nonweightbearing right lower extremity with elevation via soft pillows Vascular: Edema: Wound VAC will aid in edema control along with elevation of lower e xtremity Infection: No localized signs of infection Pain: Continue with Motrin and Tylenol extra strength at home Host factors: History of MRSA and Enterococcus infection. Diabetes type 2 with peripheral polyneuropathy, discussed proper glycemic control and intake of protein to ensure wound healing. I answered all the patient's questions. To return to the wound healing center in 1 week or call sooner if the patient has any questions or concerns. The problems addressed require a low medical decision making level which includes two or more minor problems, a stable chronic illness, or an acute uncomplicated illness or injury. The medical decision making level is low. There is noted low risk of morbidity after considering this treatment plan and diagnostic data. Note: [employer] speech recognition administrative job titles software was used to create portions of this document. Sound-alike and misspelled words, as well as other administrative job titles errors may be contained in the documentation.
[2021-08-21 11:52] VITALS: BP 114/62; PULSE 62; TEMP 35.7; BMI 26.9
--- NOTE | 2021-08-21 12:58 | PN.PCM_ITS ---
History of Present Illness Date of Service: 08/21/21 Chief Complaint: right foot ulcer and Right Leg wound History of Wound: This 55-year-old female presents for care of right foot wound. She had surgery at [facility] in November 2020. She denies current fever, chill, nausea, vomiting. She denies delays in wound care and has been applying saline wet-to-dry to help with home health. She relates her bone biopsy that was obtained during her foot surgery was negative for osteomyelitis. She has a PICC placed and saw infectious disease specialist, Dr. Paez at [facility]. She relates she is almost complete with her IV antibiotic course. She is offloading with a surgical shoe. She takes nutritional supplementation including vitamin D and B. She denies claudication. She does have rest paresthesias. She is diabetic with an A1c of over 8%. She also has history of back injuries. Since her last visit, she reports she had thick fluid squirting out of the wound with application of her silver dressing. She was concerned it was infected and called in yesterday. She is advised by nursing staff to go to the emergency room if she thought she had a rapid onset infection. She relates she is scheduled to see her surgeon tomorrow. She did not obtain the previously ordered labs and foot x-rays. She denies current redness or odor. Medical records reviewed from and it is noted she had right foot incision and drainage of fifth metatarsal on 12-04-20. Her surgeon was Dr. Blanchard. She is advised wearing AFO brace. It is noted she started on Bactrim and then after the surgery she was placed on IV antibiotics. She later developed an infection of her right foot ulceration and underwent I&D with wide debridement on 05-23-21 and 05-28-[address] Alexandre and Dr. Gonzalez. Cultures were positive for MRSA and Enterococcus and was placed on IV Vancomycin by infectious disease. She was discharged to a half-way facility with instructions for wound vac application to right anterior leg and lateral right foot and wet to dry Dakin's dressings to the right foot. Allergies: Clindamycin Medications cyclo-Benzapril, NuvaRing, Advil, Cytomel, [place], armodafinil, Singulair, Synthroid, Lyrica Past medical history: diabetes and history of back surgery, ankle surgery, right knee arthroscopy Social history: former smoker and no current tobacco use; quit in 1981 Subjective Subjective This is a 55-year-old female who presents to the wound care center for follow-up of right anterior lower extremity wound, right lateral foot wound, and right medial foot wound status post incision and drainage of deep abscess and cellulitis on 06/13 and 05/28/2021. She states she is doing well at home and is changing the wound VAC dressings every 48 hours. She continues to deny any nausea, vomiting, chills, fever, shortness of breath, or other constitutional symptoms. She states that the site is becoming less painful each day and she is pleased with her TheraSkin graft and her healing progress today. She states she has undergone tube placement for her ears so that she may return for hyperbaric dives every other day. She is set to resume dives next week. She has no other complaints today. Objective Data Objective Data Vital Signs: Vital Signs Temp Pulse Resp BP 96.2 F L 62 16 114/62 08/21/21 11:52 08/21/21 11:52 07/31/21 09:46 08/21/21 11:52 Weight: 80.286 kg Body Mass Index (BMI) 26.9 Physical Exam Const alert, oriented x3 and no apparent distress General Appearance: cooperative and comfortable HEENT normocephalic Eyes General Eye: normal appearance of both eyes Neck General: normal visual inspection Lymph Lymphatic: no lymphadenopathy noted and no lymphedema noted Resp normal respiratory effort Cardio regular rate and regular rhythm Skin Skin Narrative: Ulceration sites to the anterior right lower extremity and lateral right foot. Medial cicatrix noted. surrounding skin is intact soft, supple and atrophic. Wound Narrative: All wounds are secondary to previous surgical debridement for an abscess of the foot and anterior compartment of the lower extremity. Lateral foot ulceration right foot demonstrates improvement and granulating in nicely. Grafting product is intact. There is granular tissue with no localized erythema, no purulent drainage, no malodor or other localized signs of infection. Medial right foot wound has healed with stable cicatrix noted with no localized signs of infection. Right lower extremity anterior leg wound is granulating in with less exposed tendon of the extensor hallucis longus and anterior tibial tendon. Ulceration site is not as deep as previous visits and is closing proximally and distally. Wound bed is 100% granular with goose pimple texture proximally and distally. Grafting product intact. Ulceration site demonstrates no surrounding erythema, no purulent drainage, no malodor, no red streaking up the leg, or other localized signs of infection. Neuro oriented x3 and moves all extremities Debridement Note Debridement Note Wound debrided: Right anterior lower leg Laterality: Right Wound Grade/Stage: Gonzalez stage III Type of Debridement: Excisional debridement Anesthesia Used: 4% Lidocaine Solution Depth: Down to and including healthy tissue and in the subcutaneous layer Percentage of wound debrided: 100 Instrument Used: #15 blade Tissue Removed: Fibrous, devitalized subcutaneous, biofilm, slough Severity: Fat Layer Exposed Amount of bleeding with debridement: Mild Bleeding Controlled with: Compression and gauze Patient tolerated procedure: Patient tolerated procedure well Post-Debridement Measurements and Additional Note: Post-Debridement Measurements/Treatment - Nurse 1 - General Ulcer Assessment Start: 07/23/21 11:32 Freq: Status: Active Protocol: .LOWEX Activity Type Activity Date Activity User E-Sign Co-Sign Detail Recorded Client Recorded Date Recorded By Document 07/24/21 13:42 TN [id number] 07/24/21 13:46 AK Document 07/31/21 09:46 KR [id number] 07/31/21 09:48 KR Document 08/07/21 10:11 AK [id number] 08/07/21 10:13 AK Document 08/14/21 10:39 AK [id number] 08/14/21 10:53 AK Document 08/21/21 11:52 AK [id number] 08/21/21 11:55 AK 07/24/21 07/31/21 08/07/21 13:42 09:46 10:11 - Today's Visit Information Type of service Follow-up Visit Follow-up Visit Follow-up Visit (Physician/MOBILITY SCOOTER REPAIRER (Physician/MOBILITY SCOOTER REPAIRER (Physician/MOBILITY SCOOTER REPAIRER ) ) ) Arrival Mode Wheelchair Ambulatory Wheelchair Transfer Assistance None Transfer Assist (Other) MOM Patient Identification Verified (Name & Yes Yes Yes ) Patient Requires Transmission-Based No No Precautions Safety Precautions NA Height and Weight Body Mass Index (BMI) 26.9 26.9 26.9 BMI Classification Overweight Overweight Overweight Vital Signs Temperature (97.8 F-99.1 F) 96.7 F L 97.7 F L 96.5 F L Temperature Source Temporal Temporal Temporal Pulse Rate (60-100) 78 90 81 Pulse Location Monitor Monitor Respiratory Rate (12-18) 16 Respiratory rate source Observation Blood Pressure (90/60-120/80) 126/79 H 148/64 H 140/72 H Blood Pressure Mean (mm Hg) 94 92 94 Source Monitor Monitor Monitor Position Semi-Fowlers Blood Pressure Location Left Arm History Since Last Visit- (Skip if this is Patient's initial visit) Have you changed medications since your No No No last visit? Any new allergies or adverse reactions No No No Had a fall/change in ADL's that may No No No increase risk of falls Signs or symptoms of abuse and/or No No No neglect since last visit Have you been in the hospital since your No No No last visit? Has dressing in place as prescribed Yes Yes Yes Has compression in place as prescribed Yes N/A N/A Has offloadiing in place as prescribed Yes N/A N/A Experienced any changes in pain level or No No No management Left Footwear No Footwear Regular Shoe Right Footwear Regular Shoe Regular Shoe Pain Scale: 0-10 Numeric Is Patient Pain Free? Yes Yes Yes 08/14/21 08/21/21 10:39 11:52 WC - Today's Visit Information Type of service Follow-up Visit Follow-up Visit (Physician/MOBILITY SCOOTER REPAIRER (Physician/MOBILITY SCOOTER REPAIRER ) ) Arrival Mode Wheelchair Wheelchair Transfer Assistance None Transfer Assist (Other) Patient Identification Verified (Name & Yes Yes ) Patient Requires Transmission-Based No No Precautions Safety Precautions NA Height and Weight Body Mass Index (BMI) 26.9 26.9 BMI Classification Overweight Overweight Vital Signs Temperature (97.8 F-99.1 F) 96.2 F L Temperature Source Temporal Pulse Rate (60-100) 107 H 62 Pulse Location Monitor Monitor Respiratory Rate (12-18) Respiratory rate source Blood Pressure (90/60-120/80) 134/52 H 114/62 Blood Pressure Mean (mm Hg) 79 79 Source Monitor Monitor Position Blood Pressure Location History Since Last Visit- (Skip if this is Patient's initial visit) Have you changed medications since your No No last visit? Any new allergies or adverse reactions No No Had a fall/change in ADL's that may No No increase risk of falls Signs or symptoms of abuse and/or No No neglect since last visit Have you been in the hospital since your No No last visit? Has dressing in place as prescribed Yes Yes Has compression in place as prescribed N/A N/A Has offloadiing in place as prescribed N/A N/A Experienced any changes in pain level or No No management Left Footwear Regular Shoe Regular Shoe Right Footwear Regular Shoe Pain Scale: 0-10 Numeric Is Patient Pain Free? Yes Yes WC - Nurse 1 - General Ulcer Measurement Start: 07/23/21 11:32 Freq: Status: Active Protocol: Activity Type Activity Date Activity User E-Sign Co-Sign Detail Recorded Client Recorded Date Recorded By Document 07/24/21 13:42 AK [id number] 07/24/21 13:46 AK Document 07/31/21 09:46 KR [id number] 07/31/21 09:48 KR Document 08/07/21 10:11 AK [id number] 08/07/21 10:13 AK Document 08/14/21 10:39 AK [id number] 08/14/21 10:53 AK Document 08/21/21 11:52 AK [id number] 08/21/21 11:55 AK 07/24/21 07/31/21 08/07/21 13:42 09:46 10:11 Wound Center Nurse 1 #4 R LATERAL FOOT -Combined with other wound No Yes -Combined with (Name of Wound-Exactly mid lower leg as it is documented) -Current Size (cm) - Length 29 1.8 28 -Current Size (cm) - Width 5.1 2.5 4 -Current Size (cm) - Depth 0.1 0.1 0.1 -Total Square Cm 147.9 4.50 112 -Date of Last Picture (Recall this 07/24/21 field) -Photo Taken Yes No -Epithelialization None Present -Tunneling No No -Undermining/Tunneling No No -Circular Undermining No No -Change in Wound Grade/Stage No -Exudate Amt Large Medium Large -Exudate Type Serosanguineous Serosanguineous Serosanguineous -Wound Margin Distinct, Distinct, Distinct, Outline Outline Outline Attached Attached Attached -Granulation Amt Small (1-33%) Medium (34-66%) Large (67-100%) -Granulation Quality [place] Red [place],Red -Slough/Fibrin Yes -Necrosis Amt Small (1-33%) Medium (34-66%) Medium (34-66%) -Necrotic Tissue Type Adherent Slough Adherent Slough Adherent Slough -Structure Exposed N/A N/A -Texture (Marie-wound Skin Appearance) No Abnormality, Assessed, No Abnormality, Assessed Scarring Assessed -Moisture (Marie-wound Skin Appearance) No Abnormality, No Abnormality, No Abnormality, Assessed Assessed Assessed -Color (Marie-wound Skin Appearance) No Abnormality, No Abnormality, No Abnormality, Assessed Assessed Assessed -Temperature (Marie-wound Skin No Abnormality No Abnormality No Abnormality Appearance) (Pt Warm) (Pt Warm) (Pt Warm) -Tenderness on Palpation (Marie-wound No No No Skin Appearance) -Ulcer Cleansing Rinsed/ Soap and Water Rinsed/ Irrigated with Irrigated with Saline Saline -Foul Odor after Cleansing No No No -Anesthetic Used 4% Lidocaine 4% Lidocaine Solution Solution #2 R MID LOWER LEG -Combined with other wound Yes -Combined with (Name of Wound-Exactly #4 RIGHT as it is documented) LATERAL FOOT -Current Size (cm) - Length 27.5 -Current Size (cm) - Width 4.0 -Current Size (cm) - Depth 0.3 -Total Square Cm 110.00 -Photo Taken -Epithelialization -Tunneling -Undermining/Tunneling -Circular Undermining -Change in Wound Grade/Stage -Exudate Amt Large -Exudate Type Serosanguineous -Wound Margin Distinct, Outline Attached -Granulation Amt Large (67-100%) -Granulation Quality Red -Slough/Fibrin -Necrosis Amt None Present (0 %) -Necrotic Tissue Type -Structure Exposed -Texture (Marie-wound Skin Appearance) Assessed, Scarring -Moisture (Marie-wound Skin Appearance) No Abnormality, Assessed -Color (Marie-wound Skin Appearance) No Abnormality, Assessed -Temperature (Marie-wound Skin No Abnormality Appearance) (Pt Warm) -Tenderness on Palpation (Marie-wound No Skin Appearance) -Ulcer Cleansing Soap and Water -Foul Odor after Cleansing No -Anesthetic Used 4% Lidocaine Solution Lower Limb Edema Present No Right Calf (cm) 31 Right Ankle (cm) 21.7 08/14/21 08/21/21 10:39 11:52 Wound Center Nurse 1 #4 R LATERAL FOOT -Combined with other wound No No -Combined with (Name of Wound-Exactly as it is documented) -Current Size (cm) - Length 0.1 1.8 -Current Size (cm) - Width 0.1 1 -Current Size (cm) - Depth 0.1 0.1 -Total Square Cm 0.01 1.8 -Date of Last Picture (Recall this field) -Photo Taken No No -Epithelialization Large 67-100% -Tunneling No No -Undermining/Tunneling No No -Circular Undermining No No -Change in Wound Grade/Stage No No -Exudate Amt Medium Small -Exudate Type Serosanguineous Serosanguineous -Wound Margin Distinct, Distinct, Outline Outline Attached Attached -Granulation Amt Medium (34-66%) Large (67-100%) -Granulation Quality N/A [place],Red -Slough/Fibrin Yes No -Necrosis Amt Small (1-33%) None Present (0 %) -Necrotic Tissue Type Adherent Slough -Structure Exposed N/A N/A -Texture (Marie-wound Skin Appearance) No Abnormality, Assessed, Assessed Scarring -Moisture (Marie-wound Skin Appearance) No Abnormality, No Abnormality, Assessed Assessed -Color (Marie-wound Skin Appearance) No Abnormality, No Abnormality, Assessed Assessed -Temperature (Marie-wound Skin No Abnormality No Abnormality Appearance) (Pt Warm) (Pt Warm) -Tenderness on Palpation (Marie-wound No No Skin Appearance) -Ulcer Cleansing Soap and Water Soap and Water -Foul Odor after Cleansing No No -Anesthetic Used 4% Lidocaine 4% Lidocaine Solution Solution #2 R MID LOWER LEG -Combined with other wound No No -Combined with (Name of Wound-Exactly as it is documented) -Current Size (cm) - Length 27 35 -Current Size (cm) - Width 4.8 2.7 -Current Size (cm) - Depth 0.1 0.1 -Total Square Cm 129.6 94.5 -Photo Taken No No -Epithelialization Small 1-33% -Tunneling No No -Undermining/Tunneling No No -Circular Undermining No No -Change in Wound Grade/Stage No -Exudate Amt Medium Small -Exudate Type Serosanguineous Serosanguineous -Wound Margin Distinct, Distinct, Outline Outline Attached Attached -Granulation Amt Small (1-33%) Large (67-100%) -Granulation Quality N/A [place],Red -Slough/Fibrin Yes No -Necrosis Amt Small (1-33%) None Present (0 %) -Necrotic Tissue Type Adherent Slough -Structure Exposed N/A N/A -Texture (Marie-wound Skin Appearance) Assessed, Assessed, Scarring Scarring -Moisture (Marie-wound Skin Appearance) No Abnormality, No Abnormality, Assessed Assessed -Color (Marie-wound Skin Appearance) No Abnormality, No Abnormality, Assessed Assessed -Temperature (Marie-wound Skin No Abnormality No Abnormality Appearance) (Pt Warm) (Pt Warm) -Tenderness on Palpation (Marie-wound No No Skin Appearance) -Ulcer Cleansing Soap and Water Soap and Water -Foul Odor after Cleansing No No -Anesthetic Used 4% Lidocaine 4% Lidocaine Solution Solution Lower Limb Edema Present Right Calf (cm) Right Ankle (cm) WC - Nurse 2 - General Ulcer CM Notes Start: 07/23/21 11:32 Freq: Status: Active Protocol: Activity Type Activity Date Activity User E-Sign Co-Sign Detail Recorded Client Recorded Date Recorded By Document 07/31/21 13:00 PL [id number] 07/31/21 13:09 PL Document 08/14/21 14:34 PL [id number] 08/14/21 14:40 PL 07/31/21 08/14/21 13:00 14:34 Wound Center Nurse 2 #4 R LATERAL FOOT -Time 10:12 11:23 -Correct Patient Yes Yes -Correct Side, Site, Position Yes Yes -Correct Procedure Yes Yes -Procedure Performed Yes Yes -Type of Procedure Debridement Debridement -Clinical Debridement Subcutaneous Subcutaneous -Tissue Removed Subcutaneous Subcutaneous -Post Debridement (cm) - Length 1.8 1.0 -Post Debridement (cm) - Width 2.5 2.0 -Post Debridement (cm) - Depth 0.1 0.1 -Total Square (Post) (cm) 4.50 2.00 -Area of Debridement (cm) - Length 1.8 1.0 -Area of Debridement (cm) - Width 2.5 2.0 -Total Square (Area) (cm) 4.50 2.00 -Tunneling No No -Undermining/Tunneling No No -Circular Undermining No No -Wound/Ulcer Outcome Not Healed Not Healed -Ulcer Cleansing Rinsed/ Rinsed/ Irrigated with Irrigated with Saline Saline -Foul Odor after Cleansing No No -Bioengineered Tissue Yes No -Type of Bioengineered Tissue Theraskin -Expiration Date 12/15/24 -Product Lot Number [id number] -Percent Used 100 -Bleeding Controlled with Pressure Pressure -Treatment Response Procedure Procedure Tolerated Well Tolerated Well -Debridement - Subq, 1st 20sq cm No No -Apply Skin Sub - 1st 25 sq cm - Feet 1 -[place]askin (per sq cm) 6 #2 R MID LOWER LEG -Time 10:12 11:23 -Correct Patient Yes Yes -Correct Side, Site, Position Yes Yes -Correct Procedure Yes Yes -Procedure Performed Yes Yes -Type of Procedure Debridement Debridement -Clinical Debridement Subcutaneous Subcutaneous -Tissue Removed Subcutaneous Subcutaneous -Post Debridement (cm) - Length 27.5 27 -Post Debridement (cm) - Width 4.0 4.8 -Post Debridement (cm) - Depth 0.3 0.1 -Total Square (Post) (cm) 110.00 129.6 -Area of Debridement (cm) - Length 27.5 27 -Area of Debridement (cm) - Width 4.0 4.8 -Total Square (Area) (cm) 110.00 129.6 -Tunneling No No -Undermining/Tunneling No No -Circular Undermining No No -Wound/Ulcer Outcome Not Healed Healed- Surgical Closure -Ulcer Cleansing Rinsed/ Irrigated with Saline -Foul Odor after Cleansing No No -Bioengineered Tissue Yes Yes -Type of Bioengineered Tissue Ther[place]in Ther[place]in -Expiration Date 07/18/25 07/18/25 -Product Lot Number [id number] -Percent Used 100 100 -Lot number of Saline Used [id number] -Bleeding Controlled with Pressure Pressure -Treatment Response Procedure Procedure Tolerated Well Tolerated Well -Debridement - Subq, 1st 20sq cm No No -Apply Skin Sub - each addt'l 25 sq cm 1 - Legs -Apply Skin Sub - 1st 100 sq cm - Legs 1 1 -Apply Skin Sub - each addt'l 100 sq 1 cm - Legs -[place] (per sq cm) 116 116 Pain Scale: 0-10 Numeric Is Patient Pain Free? Yes Yes - Nurse 3 - General Ulcer D/C NN Start: 07/23/21 11:32 Freq: Status: Active Protocol: Activity Type Activity Date Activity User E-Sign Co-Sign Detail Recorded Client Recorded Date Recorded By Document 03/03/22 13:29 JF [id number] 07/24/21 13:31 JF Edit Result 07/24/21 13:29 JF (1) [id number] 07/25/21 07:29 PL Document 07/31/21 07:10 PL [id number] 08/01/21 07:12 PL Document 08/14/21 12:01 AK [id number] 08/14/21 12:03 AK Edit Result 08/14/21 12:01 AK (2) [id number] 08/15/21 07:00 PL Edit Result 08/14/21 12:01 AK (3) [id number] 08/15/21 07:01 PL Document 08/21/21 11:52 AK [id number] 08/21/21 11:55 AK (1) #2 R MID LOWER LEG - NPWT Application Charge NPWT </= 50 sq cm => NPWT - Multiple ($) => Locations (2) #4 R LATERAL FOOT - NPWT Application Charge NPWT </= 50 sq cm => NPWT - Multiple ($) => Locations (3) #2 R MID LOWER LEG - NPWT Application Charge NPWT </= 50 sq cm => NPWT > 50 sq cm ($ ($) => ) 07/24/21 07/31/21 08/14/21 13:29 07:10 12:01 Wound Care Nurse 3 #4 R LATERAL FOOT -Ulcer Cleansing Rinsed/ Irrigated with Saline -Foul Odor after Cleansing No No -Negative Pressure Wound Therapy Continue Continue Continue -Setting (mmHg) 125 125 125 -Negative Pressure is Continuous Continuous Intermittent -NPWT Application Charge NPWT > 50 sq cm NPWT > 50 sq cm NPWT - Multiple ($) ($) Locations #2 R MID LOWER LEG -Ulcer Cleansing Rinsed/ Irrigated with Saline -Foul Odor after Cleansing No -Negative Pressure Wound Therapy Continue Continue Continue -Setting (mmHg) 150 125 -Negative Pressure is Continuous Continuous Continuous -NPWT Application Charge NPWT - Multiple NPWT - Multiple NPWT > 50 sq cm Locations Locations ($) Right -Compression Wrap Sebastian Wrap Vital Signs Temperature (97.8 F-99.1 F) Temperature Source Pulse Rate (60-100) Pulse Location Blood Pressure (90/60-120/80) Blood Pressure Mean (mm Hg) Source Pain Scale: 0-10 Numeric Is Patient Pain Free? Yes Yes Yes WC - Visit Discharge Discharge Condition Stable Stable Ambulatory Status Ambulatory Wheelchair Transportation Private Auto Private Auto Accompanied by mom Medication Reconcilliation completed & Yes Yes provided to patient/care provider Clinical Summary of Care Provided Yes Yes 08/21/21 11:52 Wound Care Nurse 3 #4 R LATERAL FOOT -Ulcer Cleansing -Foul Odor after Cleansing -Negative Pressure Wound Therapy -Setting (mmHg) -Negative Pressure is -NPWT Application Charge #2 R MID LOWER LEG -Ulcer Cleansing -Foul Odor after Cleansing -Negative Pressure Wound Therapy -Setting (mmHg) -Negative Pressure is -NPWT Application Charge Right -Compression Wrap Vital Signs Temperature (97.8 F-99.1 F) 96.2 F L Temperature Source Temporal Pulse Rate (60-100) 62 Pulse Location Monitor Blood Pressure (90/60-120/80) 114/62 Blood Pressure Mean (mm Hg) 79 Source Monitor Pain Scale: 0-10 Numeric Is Patient Pain Free? Yes WC - Visit Discharge Discharge Condition Ambulatory Status Transportation Accompanied by Medication Reconcilliation completed & provided to patient/care provider Clinical Summary of Care Provided Additional Wound Wound debrided: Right lateral foot Laterality: Right Wound Grade/Stage: Gonzalez stage III Type of Debridement: Excisional debridement Anesthesia Used: 4% Lidocaine Solution Depth: Down to and including healthy tissue and in the subcutaneous layer Percentage of wound debrided: 100 Instrument Used: #15 blade Tissue Removed: Fibrous, devitalized subcutaneous, biofilm, slough Severity: Fat Layer Exposed Amount of bleeding with debridement: Mild Bleeding Controlled with: Compression and gauze Patient tolerated procedure: Patient tolerated procedure well Assessment/Plan Assessment/Plan (1) Non-pressure 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: CODE(S): L97.212 - Non-pressure 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 (2) 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: CODE(S): L97.512 - 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 (3) Type 2 diabetes mellitus with diabetic polyneuropathy: CODE(S): E11.42 - Type 2 diabetes mellitus with diabetic polyneuropathy QUALIFIERS: Diabetes mellitus long-term insulin use: with long-term use Qualified Code(s): E11.42 - Type 2 diabetes mellitus with diabetic polyneuropathy; Z79.4 - shelter (current) use of insulin (4) Charcot's joint of right foot: CODE(S): M14.671 - Charcot's joint, right ankle and foot (5) Hypothyroidism: CODE(S): E03.9 - Hypothyroidism, unspecified QUALIFIERS: Hypothyroidism type: unspecified Qualified Code(s): E03.9 - Hypothyroidism, unspecified (6) Type 2 diabetes mellitus with foot ulcer: CODE(S): E11.621 - Type 2 diabetes mellitus with foot ulcer; L97.509 - Non-pressure chronic ulcer of other part of unspecified foot with unspecified severity PLAN: This is a 55-year-old female with history of wide I&D and deep debridement of the right foot and ankle from 05/23/2021 and 05/28/[address] Alexand[address] and Dr. Gonzalez, podiatric specialist. She has history of MRSA infection. Her wounds are complicated by diabetes mellitus type 2 with peripheral polyneuropathy, Charcot joint deformity of the right foot, hypothyroidism. Following surgical debridement and recovery in the hospital she was on IV antibiotics vancomycin. Infectious disease discontinued her vancomycin and placed her on daptomycin. She was discharged to a half-way facility where they have been continuing daily dressing changes wet-to-dry Dakin's. Patient and daughter were unhappy with the nursing facility and changed to a different half-way facility where they were much happier with her care. She has since been discharged from the nursing facility to her home on 07/11/2021. She has been compliant with her nonweightbearing status to her right lower extremity. She is accompanied by her mother today to the wound care center for follow-up of her wounds to her right lower extremity. She is continuing to be compliant with wound VAC changes every 2 to 3 days to the right anterior leg and right lateral foot wounds. She has undergone tube placement for her ears and will continue HBO dives every other day beginning next week. TheraSkin graft applied to the right lower extremity anterior wound and right lateral foot wound. The right anterior lower extremity wound is closing at the most proximal and most distal portions with new skin coverage. TheraSkin graft is taking well to the wound bed and wound margins. Her wounds demonstrate no localized signs of infection. The surrounding skin is intact and atrophic. The medial right foot wound is healed with a stable cicatrix. TheraSkin graft applied to the right anterior lower extremity wound and right lateral foot wound. Sites were dressed with Adaptic touch and anchored with Steri-Strips. Wound VAC applied over the Adaptic touch to the right lower extremity anterior wound and lateral right foot. She is to continue to elevate the right lower extremity and remain in a nonweightbearing status to this extremity. A silicone- based wound VAC dressing applied to decrease irritation to the site and so that she may remain compliant in use of her wound VAC. Her right lower extremity anterior wound is a Gonzalez grade 3 at her right lateral foot wound is a Gonzalez grade 3, right medial foot wound Gonzalez grade 3. She underwent a surgical debridement of all 3 of these Gonzalez grade 3 wounds to the right lower extremity on 05/23/2021 to drain a deep abscess and debride necrotic tissue and tendon. She underwent a second debridement procedure on 05/28/2021 to drain deep anterior compartment abscess of the right lower extremity. She had undergone and completed 8 weeks of IV vancomycin and her PICC line was pulled on 07/09/2021. There is no localized signs of infection to any of the right foot wounds. Grafting product is applied to the right anterior wound and right lateral foot wound. She continues to make good progress in her healing status. She is very pleased with her treatment progress. I discussed with her to continue to ensure proper diabetic glycemic control and intake of protein to ensure wound healing and graft take. I reviewed and discussed his case today. Debridement was performed today as noted in the clinical panel to all of the ulcer sites. The following work up and care recommendations were made: Dressing: Leave TheraSkin graft in place with Adaptic covering. Apply wound VAC over site right anterior leg wound and right lateral foot wound. Wound VAC to b e changed every 48-72 hours and set at 125 mmHg of intermittent pressure Wash: Do not wash Tissue growth optimization: TheraSkin skin substitute right anterior leg wound and lateral foot wound Offload: Nonweightbearing right lower extremity with elevation via soft pillows Vascular: Edema: Wound VAC will aid in edema control along with elevation of lower extremity Infection: No localized signs of infection Pain: Continue with Motrin and Tylenol extra strength at home Host factors: History of MRSA and Enterococcus infection. Diabetes type 2 with peripheral polyneuropathy, discussed proper glycemic control and intake of protein to ensure wound healing. I answered all the patient's questions. To return to the wound healing center in 1 week or call sooner if the patient has any questions or concerns. The problems addressed require a low medical decision making level which includes two or more minor problems, a stable chronic illness, or an acute uncomplicated illness or injury. The medical decision making level is low. There is noted low risk of morbidity after considering this treatment plan and diagnostic data. Note: [employer] speech recognition welt drawer software was used to create portions of this document. Sound-alike and misspelled words, as well as other welt drawer errors may be contained in the documentation.
== END 2021-08-21 23:59 | disposition home or self-care (01) ==
LOC: WC 11:00
PROVIDERS: PCP Family Medicine; Visit Provider Student in an Organized Health Care Education/Training Program
DX: E11.621 Type 2 diabetes mellitus with foot ulcer (principal); L97.212 Non-pressure 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; L97.512 Non-pressure chronic 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; E11.610 Type 2 diabetes mellitus with diabetic neuropathic arthropathy; E11.42 Type 2 diabetes mellitus with diabetic polyneuropathy; E03.9 Hypothyroidism, unspecified; Z79.4 Long term (current) use of insulin; Z79.899 Other long term (current) drug therapy; Z86.14 Personal history of Methicillin resistant Staphylococcus aureus infection; Z87.891 Personal history of nicotine dependence
CPT/HCPCS: 97605 ×2; 15272; 15271; 15273; 15274; 15275; 82962; 97606; 99183; 99213; Q4121; G0277; G0463

== ENCOUNTER 2021-09-19 10:30 | Outpatient (RCR) | payer BC, MEDICAID, SELFPAY ==
[2021-08-22 00:17] VITALS: BP 114/62; PULSE 62; RESP 16; TEMP 35.7; BMI 26.9
[2021-08-25 10:16] LABS: Bedside Glucose 181 mg/dL (74-106)
--- NOTE | 2021-08-25 10:53 | PCM.HBO.PN ---
History of Present Illness Date of Service: 08/25/21 Chief Complaint: right foot ulcer and Right Leg wound History of Wound: This 55-year-old female presents for care of right foot wound. She had surgery at [facility] in November 2020. She denies current fever, chill, nausea, vomiting. She denies delays in wound care and has been applying saline wet-to-dry to help with home health. She relates her bone biopsy that was obtained during her foot surgery was negative for osteomyelitis. She has a PICC placed and saw infectious disease specialist, Dr. Paez at [facility]. She relates she is almost complete with her IV antibiotic course. She is offloading with a surgical shoe. She takes nutritional supplementation including vitamin D and B. She denies claudication. She does have rest paresthesias. She is diabetic with an A1c of over 8%. She also has history of back injuries. Since her last visit, she reports she had thick fluid squirting out of the wound with application of her silver dressing. She was concerned it was infected and called in yesterday. She is advised by nursing staff to go to the emergency room if she thought she had a rapid onset infection. She relates she is scheduled to see her surgeon tomorrow. She did not obtain the previously ordered labs and foot x-rays. She denies current redness or odor. Medical records reviewed from and it is noted she had right foot incision and drainage of fifth metatarsal on 12-04-20. Her surgeon was Dr. Blanchard. She is advised wearing AFO brace. It is noted she started on Bactrim and then after the surgery she was placed on IV antibiotics. She later developed an infection of her right foot ulceration and underwent I&D with wide debridement on 05-23-21 and 05-28-[address] Alexandre and Dr. Gonzalez. Cultures were positive for MRSA and Enterococcus and was placed on IV Vancomycin by infectious disease. She was discharged to a alf facility with instructions for wound vac application to right anterior leg and lateral right foot and wet to dry Dakin's dressings to the right foot. Allergies: Clindamycin Medications cyclo-Benzapril, NuvaRing, Advil, Cytomel, [place], armodafinil, Singulair, Synthroid, Lyrica Past medical history: diabetes and history of back surgery, ankle surgery, right knee arthroscopy Social history: former smoker and no current tobacco use; quit in 1981 Subjective Subjective Patient presents today for hyperbaric oxygen therapy treatment. Today's session represents the 5th such session of a planned 30 sessions. Hyperbaric oxygen therapy was administered as per the facility's protocol. Hyperbaric oxygen therapy was administered at 2 forrest for 90 minutes with no air breaks. Patient tolerated hyperbaric oxygen therapy well, without complaints or complications. Upon emergence from the hyperbaric chamber, the patient's vital signs remained stable. Blood glucose measurements were obtained both prior to and following hyperbaric oxygen therapy, and are recorded elsewhere. The patient was discharged in good condition. Objective Data Objective Data Vital Signs: Vital Signs Temp Pulse Resp BP 96.2 F L 62 16 114/62 08/22/21 00:17 08/22/21 00:17 08/22/21 00:17 08/22/21 00:17 Weight: 177 lb Body Mass Index (BMI) 26.9 Lab / Micro Data Labs: Laboratory Results - last 24 hr 08/25/21 10:11: POC Glucose 181 H Exam Physical Exam Const alert, oriented x3 and no apparent distress General Appearance: cooperative and comfortable HEENT normocephalic, head/scalp atraumatic and TM's normal bilaterally HEENT Narrative: Bilateral eustachian tubes intact Tympanic Membrane: TM's normal bilaterally Resp normal respiratory effort Effort and Inspection: able to speak in complete sentences Psych mental status grossly normal, thought process normal, cooperative and affect normal Assessment/Plan Assessment/Plan (1) Chronic ulcer of right foot due to diabetes mellitus: CODE(S): E11.621 - Type 2 diabetes mellitus with foot ulcer; L97.519 - Non-pressure chronic ulcer of other part of right foot with unspecified severity PLAN: The patient appears to be tolerating hyperbaric oxygen therapy well, which will be continued as per the patient's medical plan. (2) Non-pressure 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: CODE(S): L97.212 - Non-pressure 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 (3) 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: CODE(S): L97.512 - 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 (4) Type 2 diabetes mellitus with diabetic polyneuropathy: CODE(S): E11.42 - Type 2 diabetes mellitus with diabetic polyneuropathy QUALIFIERS: Diabetes mellitus intermediate manager insulin use: with intermediate manager use Qualified Code(s): E11.42 - Type 2 diabetes mellitus with diabetic polyneuropathy; Z79.4 - [facility] (current) use of insulin (5) Charcot's joint of right foot: CODE(S): M14.671 - Charcot's joint, right ankle and foot (6) Hypothyroidism: CODE(S): E03.9 - Hypothyroidism, unspecified QUALIFIERS: Hypothyroidism type: unspecified Qualified Code(s): E03.9 - Hypothyroidism, unspecified
[2021-08-25 13:01] LABS: Bedside Glucose 114 mg/dL (74-106)
[2021-08-25 13:09] VITALS: BP 125/66; BP 130/78; PULSE 65; PULSE 98; RESP 16; TEMP 35.6
[2021-08-27 10:26] LABS: Bedside Glucose 177 mg/dL (74-106)
--- NOTE | 2021-08-27 12:09 | HBO.PN.PCM_ITS ---
History of Present Illness Date of Service: 08/27/21 Chief Complaint: right foot ulcer and Right Leg wound History of Wound: This 55-year-old female presents for care of right foot wound. She had surgery at [facility] in November 2020. She denies current fever, chill, nausea, vomiting. She denies delays in wound care and has been applying saline wet-to-dry to help with home health. She relates her bone biopsy that was obtained during her foot surgery was negative for osteomyelitis. She has a PICC placed and saw infectious disease specialist, Dr. Paez at [facility]. She relates she is almost complete with her IV antibiotic course. She is offloading with a surgical shoe. She takes nutritional supplementation including vitamin D and B. She denies claudication. She does have rest paresthesias. She is diabetic with an A1c of over 8%. She also has history of back injuries. Since her last visit, she reports she had thick fluid squirting out of the wound with application of her silver dressing. She was concerned it was infected and called in yesterday. She is advised by nursing staff to go to the emergency room if she thought she had a rapid onset infection. She relates she is scheduled to see her surgeon tomorrow. She did not obtain the previously ordered labs and foot x-rays. She denies current redness or odor. Medical records reviewed from and it is noted she had right foot incision and drainage of fifth metatarsal on 12-04-20. Her surgeon was Dr. Blanchard. She is advised wearing AFO brace. It is noted she started on Bactrim and then after the surgery she was placed on IV antibiotics. She later developed an infection of her right foot ulceration and underwent I&D with wide debridement on 05-23-21 and 05-28-[address] Alexandre and Dr. Gonzalez. Cultures were positive for MRSA and Enterococcus and was placed on IV Vancomycin by infectious disease. She was discharged to a shelter facility with instructions for wound vac application to right anterior leg and lateral right foot and wet to dry Dakin's dressings to the right foot. Allergies: Clindamycin Medications cyclo-Benzapril, NuvaRing, Advil, Cytomel, [place], armodafinil, Singulair, Synthroid, Lyrica Past medical history: diabetes and history of back surgery, ankle surgery, right knee arthroscopy Social history: former smoker and no current tobacco use; quit in 1981 Progress of Wound: Patient tolerating treatments 6 of 39 HBO vital signs are stable on admission and discharge. Patient is to continue treatments as scheduled Subjective Subjective Patient has no concerns Objective Data Objective Data Patient is tolerating treatments well with no issues Vital Signs: Vital Signs Temp Pulse Resp BP 96.1 F L 98 16 130/78 H 08/25/21 13:09 08/25/21 13:09 08/25/21 13:09 08/25/21 13:09 Weight: 177 lb Body Mass Index (BMI) 26.9 Lab / Micro Data Labs: Laboratory Results - last 24 hr 08/27/21 10:22: POC Glucose 177 H Exam Physical Exam Narrative Patient was alert and oriented and had no issues blood sugars were within the realm of normal for being treated and HBO Assessment/Plan Assessment/Plan (1) Non-pressure 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: CODE(S): L97.212 - Non-pressure 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 (2) 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: CODE(S): L97.512 - 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 (3) Type 2 diabetes mellitus with diabetic polyneuropathy: CODE(S): E11.42 - Type 2 diabetes mellitus with diabetic polyneuropathy QUALIFIERS: Diabetes mellitus usp insulin use: with usp use Qualified Code(s): E11.42 - Type 2 diabetes mellitus with diabetic polyneuropathy; 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
[2021-08-27 12:46] LABS: Bedside Glucose 151 mg/dL (74-106)
[2021-08-27 13:46] VITALS: BP 107/64; BP 133/82; PULSE 73; PULSE 94; RESP 16; RESP 17; TEMP 35.9
[2021-08-28 11:03] VITALS: BP 128/76; PULSE 68; TEMP 36.1; BMI 26.9
--- NOTE | 2021-08-28 13:01 | PN.PCM_ITS ---
History of Present Illness Date of Service: 08/28/21 Chief Complaint: right foot ulcer and Right Leg wound History of Wound: This 55-year-old female presents for care of right foot wound. She had surgery at [facility] in November 2020. She denies current fever, chill, nausea, vomiting. She denies delays in wound care and has been applying saline wet-to-dry to help with home health. She relates her bone biopsy that was obtained during her foot surgery was negative for osteomyelitis. She has a PICC placed and saw infectious disease specialist, Dr. Paez at [facility]. She relates she is almost complete with her IV antibiotic course. She is offloading with a surgical shoe. She takes nutritional supplementation including vitamin D and B. She denies claudication. She does have rest paresthesias. She is diabetic with an A1c of over 8%. She also has history of back injuries. Since her last visit, she reports she had thick fluid squirting out of the wound with application of her silver dressing. She was concerned it was infected and called in yesterday. She is advised by nursing staff to go to the emergency room if she thought she had a rapid onset infection. She relates she is scheduled to see her surgeon tomorrow. She did not obtain the previously ordered labs and foot x-rays. She denies current redness or odor. Medical records reviewed from and it is noted she had right foot incision and drainage of fifth metatarsal on 12-04-20. Her surgeon was Dr. Blanchard. She is advised wearing AFO brace. It is noted she started on Bactrim and then after the surgery she was placed on IV antibiotics. She later developed an infection of her right foot ulceration and underwent I&D with wide debridement on 05-23-21 and 05-28-[address] Alexandre and Dr. Gonzalez. Cultures were positive for MRSA and Enterococcus and was placed on IV Vancomycin by infectious disease. She was discharged to a half-way facility with instructions for wound vac application to right anterior leg and lateral right foot and wet to dry Dakin's dressings to the right foot. Allergies: Clindamycin Medications cyclo-Benzapril, NuvaRing, Advil, Cytomel, [place], armodafinil, Singulair, Synthroid, Lyrica Past medical history: diabetes and history of back surgery, ankle surgery, right knee arthroscopy Social history: former smoker and no current tobacco use; quit in 1981 Progress of Wound: Patient tolerating treatments 6 of 39 HBO vital signs are stable on admission and discharge. Patient is to continue treatments as scheduled Subjective Subjective This is a 55-year-old female who presents to the wound care center for follow-up of her right anterior lower extremity wound and a right lateral foot wound. She underwent incision and drainage for a deep abscess and cellulitis on 05/22/2021 and 05/28/2021. She continues to states she is doing well changing her wound VAC at home every 48 hours. She continues to deny any constitutional symptoms. She continues to deny any pain to the site. She states she has resumed her hyperbaric dives this week post ear tube placement last week. He has no other complaints today. Objective Data Objective Data Vital Signs: Vital Signs Temp Pulse Resp BP 96.9 F L 68 17 128/76 H 08/28/21 11:03 08/28/21 11:03 08/27/21 13:46 08/28/21 11:03 Weight: 80.286 kg Body Mass Index (BMI) 26.9 Physical Exam Const alert, oriented x3 and no apparent distress General Appearance: cooperative and comfortable HEENT normocephalic Eyes General Eye: normal appearance of both eyes Neck General: normal visual inspection Lymph Lymphatic: no lymphadenopathy noted and no lymphedema noted Resp normal respiratory effort Cardio regular rate and regular rhythm Extremity normal capillary refill and no calf tenderness Skin Skin Narrative: Ulceration site to the right anterior lower extremity and right lateral foot. Medial cicatrix noted. Surrounding skin is intact soft, supple, and atrophic. She is demonstrating rash secondary to wound VAC dressing on the medial aspect of the leg. Wound Narrative: All wounds are secondary to previous surgical debridement for an abscess of the foot and anterior compartment of the lower extremity. Lateral foot ulceration right foot demonstrates improvement and granulating in well. Grafting product intact. There is granular tissue with no localized erythema, no purulent drainage, no malodor, or other localized signs of infection. Medial right foot wound is healed with a stable cicatrix noted and no localized signs of infection. Right lower extremity anterior leg wound is granulating in well and demonstrates no exposed tendon with a good goose pimple granular layer. Ulcerative site is closing proximally and distally. There are skin islands between patches of granular tissue at the proximal aspect. Ulcerative sites demonstrate no localized signs of infection. Neuro oriented x3 and moves all extremities Debridement Note Debridement Note Wound debrided: Right anterior leg Laterality: Right Wound Grade/Stage: Gonzalez stage III Type of Debridement: Excisional debridement Anesthesia Used: 4% Lidocaine Solution Depth: Down to and including healthy tissue and in the subcutaneous layer Percentage of wound debrided: 100 Instrument Used: #15 blade Tissue Removed: Fibrous, devitalized subcutaneous, biofilm, slough Amount of bleeding with debridement: Mild Bleeding Controlled with: Compression and gauze Patient tolerated procedure: Patient tolerated procedure well Post-Debridement Measurements and Additional Note: Post-Debridement Measurements/Treatment WC - Nurse 1 - General Ulcer Assessment Start: 08/25/21 13:09 Freq: Status: Active Protocol: RUKHSANA Activity Type Activity Date Activity User E-Sign Co-Sign Detail Recorded Client Recorded Date Recorded By Document 08/28/21 11:03 LAYLA [id number] 08/28/21 11:07 LAYLA 08/28/21 11:03 WC - Today's Visit Information Type of service Follow-up Visit (Physician/EXECUTIVE ASSISTANT TO GENERAL COUNSEL ) Arrival Mode Wheelchair Accompanied by mom Patient Identification Verified (Name & Yes ) Height and Weight Body Mass Index (BMI) 26.9 BMI Classification Overweight Vital Signs Temperature (97.8 F-99.1 F) 96.9 F L Temperature Source Temporal Pulse Rate (60-100) 68 Pulse Location Monitor Blood Pressure (90/60-120/80) 128/76 H Blood Pressure Mean (mm Hg) 93 Source Monitor Position Sitting Blood Pressure Location Left Arm History Since Last Visit- (Skip if this is Patient's initial visit) Have you changed medications since your No last visit? Any new allergies or adverse reactions No Had a fall/change in ADL's that may No increase risk of falls Signs or symptoms of abuse and/or No neglect since last visit Have you been in the hospital since your No last visit? Has dressing in place as prescribed Yes Has compression in place as prescribed N/A Has offloadiing in place as prescribed N/A Experienced any changes in pain level or No management Pain Scale: 0-10 Numeric Is Patient Pain Free? Yes ALISSA - Nurse 1 - General Ulcer Measurement Start: 08/25/21 13:09 Freq: Status: Active Protocol: Activity Type Activity Date Activity User E-Sign Co-Sign Detail Recorded Client Recorded Date Recorded By Document 08/28/21 11:03 KR [id number] 08/28/21 11:07 KR 08/28/21 11:03 Wound Center Nurse 1 #4 R LATERAL FOOT -Current Size (cm) - Length 1.6 -Current Size (cm) - Width 0.5 -Current Size (cm) - Depth 0.1 -Total Square Cm 0.80 -Exudate Amt Large -Exudate Type Serosanguineous -Wound Margin Distinct, Outline Attached -Granulation Amt Large (67-100%) -Granulation Quality Hyper- granulation,Red -Texture (Marie-wound Skin Appearance) Assessed, Scarring -Moisture (Marie-wound Skin Appearance) No Abnormality, Assessed, Maceration -Color (Marie-wound Skin Appearance) No Abnormality, Assessed -Ulcer Cleansing Soap and Water -Foul Odor after Cleansing Yes -Anesthetic Used 4% Lidocaine Solution #2 R MID LOWER LEG -Current Size (cm) - Length 24.9 -Current Size (cm) - Width 3.6 -Current Size (cm) - Depth 0.1 -Total Square Cm 89.64 -Exudate Amt Large -Exudate Type Serosanguineous -Wound Margin Distinct, Outline Attached -Granulation Amt Large (67-100%) -Granulation Quality Red -Texture (Marie-wound Skin Appearance) Assessed, Scarring -Moisture (Marie-wound Skin Appearance) No Abnormality, Assessed -Color (Marie-wound Skin Appearance) No Abnormality, Assessed -Temperature (Marie-wound Skin No Abnormality Appearance) (Pt Warm) -Tenderness on Palpation (Marie-wound Yes Skin Appearance) -Ulcer Cleansing Soap and Water -Foul Odor after Cleansing No -Anesthetic Used 4% Lidocaine Solution WC - Nurse 2 - General Ulcer CM Notes Start: 08/25/21 13:09 Freq: Status: Active Protocol: Activity Type Activity Date Activity User E-Sign Co-Sign Detail Recorded Client Recorded Date Recorded By Document 08/28/21 12:23 PL [id number] 08/28/21 12:29 PL 08/28/21 12:23 Wound Center Nurse 2 #4 R LATERAL FOOT -Time 11:17 -Correct Patient Yes -Correct Side, Site, Position Yes -Correct Procedure Yes -Procedure Performed Yes -Type of Procedure Debridement -Clinical Debridement Subcutaneous -Tissue Removed Subcutaneous -Post Debridement (cm) - Length 1.6 -Post Debridement (cm) - Width 0.5 -Post Debridement (cm) - Depth 0.1 -Total Square (Post) (cm) 0.80 -Area of Debridement (cm) - Length 1.6 -Area of Debridement (cm) - Width 0.5 -Total Square (Area) (cm) 0.80 -Tunneling No -Undermining/Tunneling No -Circular Undermining No -Wound/Ulcer Outcome Not Healed -Ulcer Cleansing Rinsed/ Irrigated with Saline -Foul Odor after Cleansing No -Bioengineered Tissue Yes -Type of Bioengineered Tissue Theraskin -Expiration Date 08/03/24 -Product Lot Number [id number] -Percent Used 100 -Bleeding Controlled with Pressure -Treatment Response Procedure Tolerated Well -Debridement - Subq, 1st 20sq cm No -Apply Skin Sub - 1st 25 sq cm - Feet 1 -Theraskin (per sq cm) 13 #2 R MID LOWER LEG -Time 11:17 -Correct Patient Yes -Correct Side, Site, Position Yes -Correct Procedure Yes -Procedure Performed Yes -Type of Procedure Debridement -Clinical Debridement Subcutaneous -Tissue Removed Subcutaneous -Post Debridement (cm) - Length 24.9 -Post Debridement (cm) - Width 3.6 -Post Debridement (cm) - Depth 0.1 -Total Square (Post) (cm) 89.64 -Area of Debridement (cm) - Length 24.9 -Area of Debridement (cm) - Width 3.6 -Total Square (Area) (cm) 89.64 -Tunneling No -Undermining/Tunneling No -Circular Undermining No -Wound/Ulcer Outcome Not Healed -Ulcer Cleansing Rinsed/ Irrigated with Saline -Foul Odor after Cleansing No -Bioengineered Tissue Yes -Type of Bioengineered Tissue Theraskin -Expiration Date 08/15/25 -Product Lot Number [id number] -Percent Used 100 -Bleeding Controlled with Pressure -Treatment Response Procedure Tolerated Well -Debridement - Subq, 1st 20sq cm No -Apply Skin Sub - 1st 25 sq cm - Legs 1 -Theraskin (per sq cm) 116 Pain Scale: 0-10 Numeric Is Patient Pain Free? Yes WC - Nurse 3 - General Ulcer D/C NN Start: 08/25/21 13:09 Freq: Status: Active Protocol: Activity Type Activity Date Activity User E-Sign Co-Sign Detail Recorded Client Recorded Date Recorded By Document 08/28/21 11:45 LAYLA [id number] 08/28/21 11:53 LAYLA 08/28/21 11:45 Wound Care Nurse 3 #4 R LATERAL FOOT -Ulcer Cleansing Rinsed/ Irrigated with Saline -Primary Dressing Covered/Secured with Dry Gauze, Secured with Tape #2 R MID LOWER LEG -Primary Dressing Covered/Secured with Dry Gauze, Secured with Tape Right -Compression Wrap Unna Boot ($) ( single) Pain Scale: 0-10 Numeric Is Patient Pain Free? Yes WC - Visit Discharge Discharge Condition Stable Ambulatory Status Ambulatory Transportation Private Auto Additional Wound Wound debrided: Right lateral foot Laterality: Right Wound Grade/Stage: Gonzalez stage III Type of Debridement: Excisional debridement Anesthesia Used: 4% Lidocaine Solution Depth: Down to and including healthy tissue and in the subcutaneous layer Percentage of wound debrided: 100 Instrument Used: #15 blade Tissue Removed: Fibrous, devitalized subcutaneous, biofilm, slough Severity: Fat Layer Exposed Amount of bleeding with debridement: Mild Bleeding Controlled with: Compression and gauze Patient tolerated procedure: Patient tolerated procedure well Assessment/Plan Assessment/Plan (1) Chronic ulcer of right foot due to diabetes mellitus: CODE(S): E11.621 - Type 2 diabetes mellitus with foot ulcer; L97.519 - Non-pressure chronic ulcer of other part of right foot with unspecified severity (2) Non-pressure 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: CODE(S): L97.212 - Non-pressure 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 (3) 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: CODE(S): L97.512 - 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 (4) Type 2 diabetes mellitus with diabetic polyneuropathy: CODE(S): E11.42 - Type 2 diabetes mellitus with diabetic polyneuropathy QUALIFIERS: Diabetes mellitus staffing account manager insulin use: with staffing account manager use Qualified Code(s): E11.42 - Type 2 diabetes mellitus with diabetic polyneuropathy; Z79.4 - woodworking machinist (current) use of insulin (5) Type 2 diabetes mellitus with foot ulcer: CODE(S): E11.621 - Type 2 diabetes mellitus with foot ulcer; L97.509 - Non-pressure chronic ulcer of other part of unspecified foot with unspecified severity (6) Charcot's joint of right foot: CODE(S): M14.671 - Charcot's joint, right ankle and foot (7) Hypothyroidism: CODE(S): E03.9 - Hypothyroidism, unspecified QUALIFIERS: Hypothyroidism type: unspecified Qualified Code(s): E03.9 - Hypothyroidism, unspecified PLAN: This is a 55-year-old female with history of wide I&D and deep debridement of the right foot and ankle from 05/23/2021 and 05/28/[address] Alexand[address] and Dr. Gonzalez, podiatric specialist. She has history of MRSA infection. Her wounds are complicated by diabetes mellitus type 2 with peripheral polyneuropathy, Charcot joint deformity of the right foot, hypothyroidism. Following surgical debridement and recovery in the hospital she was on IV antibiotics vancomycin. Infectious disease discontinued her vancomycin and placed her on daptomycin. She was discharged to a half-way facility where they have been continuing daily dressing changes wet-to-dry Dakin's. Patient and daughter were unhappy with the nursing facility and changed to a different half-way facility where they were much happier with her care. She has since been discharged from the nursing facility to her home on 07/11/2021. She has been compliant with her nonweightbearing status to her right lower extremity. She is accompanied by her mother today to the wound care center for follow-up of her wounds to her right lower extremity. She is continuing to be compliant with wound VAC changes every 2 to 3 days to the right anterior leg and right lateral foot wounds. She has undergone tube placement for her ears and has resumed HBO dives. TheraSkin graft applied to the right lower extremity anterior wound and right lateral foot wound. The right anterior lower extremity wound is closing at the most proximal and most distal portions with new skin coverage. TheraSkin graft is taking well to the wound bed and wound margins. Her wounds demonstrate no localized signs of infection. The surrounding skin is intact and atrophic. The medial right foot wound is healed with a stable cicatrix. TheraSkin graft applied to the right anterior lower extremity wound and right lateral foot wound. Sites were dressed with Adaptic touch and anchored with Steri-Strips. Due to new rash secondary to wound VAC dressings we will apply wound veil anchored with Steri-Strips and an Unna boot to the right lower extremity. She is instructed to leave dressings clean, dry, and intact. Her right lower extremity anterior wound is a Gonzalez grade 3 at her right lateral foot wound is a Gonzalez grade 3, right medial foot wound Gonzalez grade 3. She underwent a surgical debridement of all 3 of these Gonzalez grade 3 wounds to the right lower extremity on 05/23/2021 to drain a deep abscess and debride necrotic tissue and tendon. She underwent a second debridement procedure on 05/28/2021 to drain deep anterior compartment abscess of the right lower extremity. She had undergone and completed 8 weeks of IV vancomycin and her PICC line was pulled on 07/09/2021. There is no localized signs of infection to any of the right foot wounds. Grafting product is applied to the right anterior wound and right lateral foot wound. She continues to make good progress in her healing status. She is very pleased with her treatment progress. I discussed with her to continue to ensure proper diabetic glycemic control and intake of protein to ensure wound healing and graft take. I reviewed and discussed his case today. Debridement was performed today as noted in the clinical panel to all of the ulcer sites. The following work up and care recommendations were made: Dressing: Leave TheraSkin graft in place with wound veil covering and Unna boot Wash: Do not wash Tissue growth optimization: TheraSkin skin substitute right anterior leg wound and lateral foot wound Offload: Nonweightbearing right lower extremity with elevation via soft pillows Vascular: Edema: Unna boot will aid in edema control along with elevation of lower extremity Infection: No localized signs of infection Pain: Continue with Motrin and Tylenol extra strength at home Host factors: History of MRSA and Enterococcus infection. Diabetes type 2 with peripheral polyneuropathy, discussed proper glycemic control and intake of protein to ensure wound healing. I answered all the patient's questions. To return to the wound healing center in 1 week or call sooner if the patient has any questions or concerns. Note: [employer] speech recognition competitive intelligence manager software was used to create portions of this document. Sound-alike and misspelled words, as well as other competitive intelligence manager errors may be contained in the documentation.
[2021-08-29 10:21] LABS: Bedside Glucose 179 mg/dL (74-106)
[2021-08-29 12:40] LABS: Bedside Glucose 122 mg/dL (74-106)
[2021-08-29 13:00] VITALS: BP 120/67; BP 133/71; PULSE 75; PULSE 89; RESP 17; RESP 18; TEMP 35.5
--- NOTE | 2021-08-29 14:47 | HBO.PN.PCM_ITS ---
History of Present Illness Date of Service: 08/29/21 Chief Complaint: right foot ulcer and Right Leg wound History of Wound: This 55-year-old female presents for care of right foot wound. She had surgery at [facility] in November 2020. She denies current fever, chill, nausea, vomiting. She denies delays in wound care and has been applying saline wet-to-dry to help with home health. She relates her bone biopsy that was obtained during her foot surgery was negative for osteomyelitis. She has a PICC placed and saw infectious disease specialist, Dr. Paez at [facility]. She relates she is almost complete with her IV antibiotic course. She is offloading with a surgical shoe. She takes nutritional supplementation including vitamin D and B. She denies claudication. She does have rest paresthesias. She is diabetic with an A1c of over 8%. She also has history of back injuries. Since her last visit, she reports she had thick fluid squirting out of the wound with application of her silver dressing. She was concerned it was infected and called in yesterday. She is advised by nursing staff to go to the emergency room if she thought she had a rapid onset infection. She relates she is scheduled to see her surgeon tomorrow. She did not obtain the previously ordered labs and foot x-rays. She denies current redness or odor. Medical records reviewed from and it is noted she had right foot incision and drainage of fifth metatarsal on 12-04-20. Her surgeon was Dr. Blanchard. She is advised wearing AFO brace. It is noted she started on Bactrim and then after the surgery she was placed on IV antibiotics. She later developed an infection of her right foot ulceration and underwent I&D with wide debridement on 05-23-21 and 05-28-[address] Alexandre and Dr. Gonzalez. Cultures were positive for MRSA and Enterococcus and was placed on IV Vancomycin by infectious disease. She was discharged to a long-term facility with instructions for wound vac application to right anterior leg and lateral right foot and wet to dry Dakin's dressings to the right foot. Allergies: Clindamycin Medications cyclo-Benzapril, NuvaRing, Advil, Cytomel, [place], armodafinil, Singulair, Synthroid, Lyrica Past medical history: diabetes and history of back surgery, ankle surgery, right knee arthroscopy Social history: former smoker and no current tobacco use; quit in 1981 Progress of Wound: Progress: Today is the 7th treatment of hyperbaric oxygen therapy. The patient is scheduled for 30 treatments total. Tolerance of hyperbaric oxygen therapy: Hyperbaric oxygen treatment was provided as per the facility's protocol at 2.0 KELLY in 100% oxygen for 90 minutes without air breaks. The patient tolerated hyperbaric oxygen well, without complications or complaints. Upon emergence of the hyperbaric chamber, the patient's vital signs remained stable but when she sat up to transfer to her wheelchair she experienced room spinning and nausea. The HBO supervising nurse had her lie back down and rest for a few minutes and try again. She felt slightly better the second time and slowly improved. Phylicia was evaluated by myself and found to be in stable condition with regular heart rate and rhythm. PERRL, she had several beats of nystagmus with lateral gaze to the right. She no longer had dizziness or nausea. She was discharged in stable condition. We discussed possible treatment with meclizine for vertigo. Objective Data Objective Data Vital Signs: Vital Signs Temp Pulse Resp BP 95.9 F L 89 17 133/71 H 08/29/21 13:00 08/29/21 13:00 08/29/21 13:00 08/29/21 13:00 Weight: 80.286 kg Body Mass Index (BMI) 26.9 Lab / Micro Data Labs: Laboratory Results - last 24 hr 08/29/21 10:15: POC Glucose 179 H 08/29/21 12:23: POC Glucose 122 H Exam Physical Exam Const alert, oriented x3 and no apparent distress Psych mental status grossly normal, thought process normal, cooperative, affect normal and speech normal Nursing Assessment and Debridement Post-Debridement Measurements and Additional Note: Post-Debridement Measurements/Treatment WC - Nurse 1 - General Ulcer Assessment Start: 08/25/21 13:09 Freq: Status: Active Protocol: RUKHSANA Activity Type Activity Date Activity User E-Sign Co-Sign Detail Recorded Client Recorded Date Recorded By Document 08/28/21 11:03 LAYLA [id number] 08/28/21 11:07 LAYLA 08/28/21 11:03 - Today's Visit Information Type of service Follow-up Visit (Physician/DISTRICT SALES MANAGER ) Arrival Mode Wheelchair Accompanied by mom Patient Identification Verified (Name & Yes ) Height and Weight Body Mass Index (BMI) 26.9 BMI Classification Overweight Vital Signs Temperature (97.8 F-99.1 F) 96.9 F L Temperature Source Temporal Pulse Rate (60-100) 68 Pulse Location Monitor Blood Pressure (90/60-120/80) 128/76 H Blood Pressure Mean (mm Hg) 93 Source Monitor Position Sitting Blood Pressure Location Left Arm History Since Last Visit- (Skip if this is Patient's initial visit) Have you changed medications since your No last visit? Any new allergies or adverse reactions No Had a fall/change in ADL's that may No increase risk of falls Signs or symptoms of abuse and/or No neglect since last visit Have you been in the hospital since your No last visit? Has dressing in place as prescribed Yes Has compression in place as prescribed N/A Has offloadiing in place as prescribed N/A Experienced any changes in pain level or No management Pain Scale: 0-10 Numeric Is Patient Pain Free? Yes WC - Nurse 1 - General Ulcer Measurement Start: 08/25/21 13:09 Freq: Status: Active Protocol: Activity Type Activity Date Activity User E-Sign Co-Sign Detail Recorded Client Recorded Date Recorded By Document 08/28/21 11:03 LAYLA [id number] 08/28/21 11:07 LAYLA 08/28/21 11:03 Wound Center Nurse 1 #4 R LATERAL FOOT -Current Size (cm) - Length 1.6 -Current Size (cm) - Width 0.5 -Current Size (cm) - Depth 0.1 -Total Square Cm 0.80 -Exudate Amt Large -Exudate Type Serosanguineous -Wound Margin Distinct, Outline Attached -Granulation Amt Large (67-100%) -Granulation Quality Hyper- granulation,Red -Texture (Marie-wound Skin Appearance) Assessed, Scarring -Moisture (Marie-wound Skin Appearance) No Abnormality, Assessed, Maceration -Color (Marie-wound Skin Appearance) No Abnormality, Assessed -Ulcer Cleansing Soap and Water -Foul Odor after Cleansing Yes -Anesthetic Used 4% Lidocaine Solution #2 R MID LOWER LEG -Current Size (cm) - Length 24.9 -Current Size (cm) - Width 3.6 -Current Size (cm) - Depth 0.1 -Total Square Cm 89.64 -Exudate Amt Large -Exudate Type Serosanguineous -Wound Margin Distinct, Outline Attached -Granulation Amt Large (67-100%) -Granulation Quality Red -Texture (Marie-wound Skin Appearance) Assessed, Scarring -Moisture (Marie-wound Skin Appearance) No Abnormality, Assessed -Color (Marie-wound Skin Appearance) No Abnormality, Assessed -Temperature (Marie-wound Skin No Abnormality Appearance) (Pt Warm) -Tenderness on Palpation (Marie-wound Yes Skin Appearance) -Ulcer Cleansing Soap and Water -Foul Odor after Cleansing No -Anesthetic Used 4% Lidocaine Solution WC - Nurse 2 - General Ulcer CM Notes Start: 08/25/21 13:09 Freq: Status: Active Protocol: Activity Type Activity Date Activity User E-Sign Co-Sign Detail Recorded Client Recorded Date Recorded By Document 08/28/21 12:23 PL [id number] 08/28/21 12:29 PL 08/28/21 12:23 Wound Center Nurse 2 #4 R LATERAL FOOT -Time 11:17 -Correct Patient Yes -Correct Side, Site, Position Yes -Correct Procedure Yes -Procedure Performed Yes -Type of Procedure Debridement -Clinical Debridement Subcutaneous -Tissue Removed Subcutaneous -Post Debridement (cm) - Length 1.6 -Post Debridement (cm) - Width 0.5 -Post Debridement (cm) - Depth 0.1 -Total Square (Post) (cm) 0.80 -Area of Debridement (cm) - Length 1.6 -Area of Debridement (cm) - Width 0.5 -Total Square (Area) (cm) 0.80 -Tunneling No -Undermining/Tunneling No -Circular Undermining No -Wound/Ulcer Outcome Not Healed -Ulcer Cleansing Rinsed/ Irrigated with Saline -Foul Odor after Cleansing No -Bioengineered Tissue Yes -Type of Bioengineered Tissue Theraskin -Expiration Date 08/03/24 -Product Lot Number [id number] -Percent Used 100 -Bleeding Controlled with Pressure -Treatment Response Procedure Tolerated Well -Debridement - Subq, 1st 20sq cm No -Apply Skin Sub - 1st 25 sq cm - Feet 1 -Theraskin (per sq cm) 13 #2 R MID LOWER LEG -Time 11:17 -Correct Patient Yes -Correct Side, Site, Position Yes -Correct Procedure Yes -Procedure Performed Yes -Type of Procedure Debridement -Clinical Debridement Subcutaneous -Tissue Removed Subcutaneous -Post Debridement (cm) - Length 24.9 -Post Debridement (cm) - Width 3.6 -Post Debridement (cm) - Depth 0.1 -Total Square (Post) (cm) 89.64 -Area of Debridement (cm) - Length 24.9 -Area of Debridement (cm) - Width 3.6 -Total Square (Area) (cm) 89.64 -Tunneling No -Undermining/Tunneling No -Circular Undermining No -Wound/Ulcer Outcome Not Healed -Ulcer Cleansing Rinsed/ Irrigated with Saline -Foul Odor after Cleansing No -Bioengineered Tissue Yes -Type of Bioengineered Tissue Theraskin -Expiration Date 08/15/25 -Product Lot Number [id number] -Percent Used 100 -Bleeding Controlled with Pressure -Treatment Response Procedure Tolerated Well -Debridement - Subq, 1st 20sq cm No -Apply Skin Sub - 1st 25 sq cm - Legs 1 -Theraskin (per sq cm) 116 Pain Scale: 0-10 Numeric Is Patient Pain Free? Yes - Nurse 3 - General Ulcer D/C NN Start: 08/25/21 13:09 Freq: Status: Active Protocol: Activity Type Activity Date Activity User E-Sign Co-Sign Detail Recorded Client Recorded Date Recorded By Document 08/28/21 11:45 LAYLA [id number] 08/28/21 11:53 LAYLA 08/28/21 11:45 Wound Care Nurse 3 #4 R LATERAL FOOT -Ulcer Cleansing Rinsed/ Irrigated with Saline -Primary Dressing Covered/Secured with Dry Gauze, Secured with Tape #2 R MID LOWER LEG -Primary Dressing Covered/Secured with Dry Gauze, Secured with Tape Right -Multi-Layered Wrap Application Unna Boot - Right ($) Pain Scale: 0-10 Numeric Is Patient Pain Free? Yes WC - Visit Discharge Discharge Condition Stable Ambulatory Status Ambulatory Transportation Private Auto Assessment/Plan Assessment/Plan (1) Non-pressure 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: CODE(S): L97.212 - Non-pressure 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 (2) 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: CODE(S): L97.512 - 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 (3) Chronic ulcer of right foot due to diabetes mellitus: CODE(S): E11.621 - Type 2 diabetes mellitus with foot ulcer; L97.519 - Non-pressure chronic ulcer of other part of right foot with unspecified severity (4) Type 2 diabetes mellitus with diabetic polyneuropathy: CODE(S): E11.42 - Type 2 diabetes mellitus with diabetic polyneuropathy QUALIFIERS: Diabetes mellitus detention insulin use: with termite exterminator use Qualified Code(s): E11.42 - Type 2 diabetes mellitus with diabetic polyneuropathy; Z79.4 - skilled nursing (current) use of insulin (5) Type 2 diabetes mellitus with foot ulcer: CODE(S): E11.621 - Type 2 diabetes mellitus with foot ulcer; L97.509 - Non-pressure chronic ulcer of other part of unspecified foot with unspecified severity QUALIFIERS: Diabetes mellitus detention insulin use: with detention use Qualified Code(s): E11.621 - Type 2 diabetes mellitus with foot ulcer; L97.509 - Non-pressure chronic ulcer of other part of unspecified foot with unspecified severity; Z79.4 - skilled nursing (current) use of insulin (6) Charcot's joint of right foot: CODE(S): M14.671 - Charcot's joint, right ankle and foot (7) Hypothyroidism: CODE(S): E03.9 - Hypothyroidism, unspecified QUALIFIERS: Hypothyroidism type: unspecified Qualified Code(s): E03.9 - Hypothyroidism, unspecified PLAN: The patient appears to be tolerating hyperbaric oxygen therapy well, which will be continued as per his medical treatment plan. Discussed possible referral back to ENT regarding vertigo.
[2021-09-01 09:50] LABS: Bedside Glucose 181 mg/dL (74-106)
--- NOTE | 2021-09-01 10:14 | PCM.HBO.PN ---
History of Present Illness Date of Service: 09/01/21 Chief Complaint: right foot ulcer and Right Leg wound History of Wound: This 55-year-old female presents for care of right foot wound. She had surgery at [facility] in November 2020. She denies current fever, chill, nausea, vomiting. She denies delays in wound care and has been applying saline wet-to-dry to help with home health. She relates her bone biopsy that was obtained during her foot surgery was negative for osteomyelitis. She has a PICC placed and saw infectious disease specialist, Dr. Paez at [facility]. She relates she is almost complete with her IV antibiotic course. She is offloading with a surgical shoe. She takes nutritional supplementation including vitamin D and B. She denies claudication. She does have rest paresthesias. She is diabetic with an A1c of over 8%. She also has history of back injuries. Since her last visit, she reports she had thick fluid squirting out of the wound with application of her silver dressing. She was concerned it was infected and called in yesterday. She is advised by nursing staff to go to the emergency room if she thought she had a rapid onset infection. She relates she is scheduled to see her surgeon tomorrow. She did not obtain the previously ordered labs and foot x-rays. She denies current redness or odor. Medical records reviewed from and it is noted she had right foot incision and drainage of fifth metatarsal on 12-04-20. Her surgeon was Dr. Blanchard. She is advised wearing AFO brace. It is noted she started on Bactrim and then after the surgery she was placed on IV antibiotics. She later developed an infection of her right foot ulceration and underwent I&D with wide debridement on 05-23-21 and 05-28-[address] Alexandre and Dr. Gonzalez. Cultures were positive for MRSA and Enterococcus and was placed on IV Vancomycin by infectious disease. She was discharged to a senior living facility with instructions for wound vac application to right anterior leg and lateral right foot and wet to dry Dakin's dressings to the right foot. Allergies: Clindamycin Medications cyclo-Benzapril, NuvaRing, Advil, Cytomel, [place], armodafinil, Singulair, Synthroid, Lyrica Past medical history: diabetes and history of back surgery, ankle surgery, right knee arthroscopy Social history: former smoker and no current tobacco use; quit in 1981 Subjective Subjective Patient presents today for hyperbaric oxygen therapy treatment. Today's session represents the 8th such session of a planned 30 sessions. Hyperbaric oxygen therapy was administered as per the facility's protocol. Hyperbaric oxygen therapy was administered at 2 forrest for 90 minutes with no air breaks. Patient tolerated hyperbaric oxygen therapy well, without complaints or complications. Upon emergence from the hyperbaric chamber, the patient's vital signs remained stable. Blood glucose measurements were obtained both prior to and following hyperbaric oxygen therapy, and are recorded elsewhere. The patient was discharged in good condition. Objective Data Objective Data Vital Signs: Vital Signs Temp Pulse Resp BP 95.9 F L 89 17 133/71 H 08/29/21 13:00 08/29/21 13:00 08/29/21 13:00 08/29/21 13:00 Weight: 177 lb Body Mass Index (BMI) 26.9 Lab / Micro Data Labs: Laboratory Results - last 24 hr 09/01/21 09:48: POC Glucose 181 H Exam Physical Exam Const alert, oriented x3 and no apparent distress General Appearance: cooperative and comfortable HEENT normocephalic, head/scalp atraumatic and TM's normal bilaterally HEENT Narrative: Bilateral eustachian tubes intact Tympanic Membrane: TM's normal bilaterally Resp normal respiratory effort Effort and Inspection: able to speak in complete sentences Psych mental status grossly normal, thought process normal, cooperative and affect normal Assessment/Plan Assessment/Plan (1) Chronic ulcer of right foot due to diabetes mellitus: CODE(S): E11.621 - Type 2 diabetes mellitus with foot ulcer; L97.519 - Non-pressure chronic ulcer of other part of right foot with unspecified severity PLAN: The patient appears to be tolerating hyperbaric oxygen therapy well, which will be continued as per the patient's medical plan. (2) Non-pressure 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: CODE(S): L97.212 - Non-pressure 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 (3) 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: CODE(S): L97.512 - 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 (4) Type 2 diabetes mellitus with diabetic polyneuropathy: CODE(S): E11.42 - Type 2 diabetes mellitus with diabetic polyneuropathy QUALIFIERS: Diabetes mellitus chcf insulin use: with chcf use Qualified Code(s): E11.42 - Type 2 diabetes mellitus with diabetic polyneuropathy; Z79.4 - retirement (current) use of insulin (5) Charcot's joint of right foot: CODE(S): M14.671 - Charcot's joint, right ankle and foot (6) Hypothyroidism: CODE(S): E03.9 - Hypothyroidism, unspecified QUALIFIERS: Hypothyroidism type: unspecified Qualified Code(s): E03.9 - Hypothyroidism, unspecified
[2021-09-01 12:10] LABS: Bedside Glucose 95 mg/dL (74-106)
[2021-09-01 12:24] VITALS: BP 113/70; BP 127/63; PULSE 103; PULSE 82; RESP 17; TEMP 36.1
[2021-09-03 10:25] LABS: Bedside Glucose 195 mg/dL (74-106)
[2021-09-03 12:36] LABS: Bedside Glucose 109 mg/dL (74-106)
--- NOTE | 2021-09-03 12:38 | HBO.PN.PCM_ITS ---
History of Present Illness Date of Service: 09/03/21 Chief Complaint: right foot ulcer and Right Leg wound History of Wound: This 55-year-old female presents for care of right foot wound. She had surgery at [facility] in November 2020. She denies current fever, chill, nausea, vomiting. She denies delays in wound care and has been applying saline wet-to-dry to help with home health. She relates her bone biopsy that was obtained during her foot surgery was negative for osteomyelitis. She has a PICC placed and saw infectious disease specialist, Dr. Paez at [facility]. She relates she is almost complete with her IV antibiotic course. She is offloading with a surgical shoe. She takes nutritional supplementation including vitamin D and B. She denies claudication. She does have rest paresthesias. She is diabetic with an A1c of over 8%. She also has history of back injuries. Since her last visit, she reports she had thick fluid squirting out of the wound with application of her silver dressing. She was concerned it was infected and called in yesterday. She is advised by nursing staff to go to the emergency room if she thought she had a rapid onset infection. She relates she is scheduled to see her surgeon tomorrow. She did not obtain the previously ordered labs and foot x-rays. She denies current redness or odor. Medical records reviewed from and it is noted she had right foot incision and drainage of fifth metatarsal on 12-04-20. Her surgeon was Dr. Blanchard. She is advised wearing AFO brace. It is noted she started on Bactrim and then after the surgery she was placed on IV antibiotics. She later developed an infection of her right foot ulceration and underwent I&D with wide debridement on 05-23-21 and 05-28-[address] Alexandre and Dr[address] Gonzalez. Cultures were positive for MRSA and Enterococcus and was placed on IV Vancomycin by infectious disease. She was discharged to a alf facility with instructions for wound vac application to right anterior leg and lateral right foot and wet to dry Dakin's dressings to the right foot. Allergies: Clindamycin Medications cyclo-Benzapril, NuvaRing, Advil, Cytomel, [place], armodafinil, Singulair, Synthroid, Lyrica Past medical history: diabetes and history of back surgery, ankle surgery, right knee arthroscopy Social history: former smoker and no current tobacco use; quit in 1981 Progress of Wound: Progress: Today is the 9th treatment of hyperbaric oxygen therapy. The patient is scheduled for 30 treatments total. Vital signs stable on admission and discharge patient is tolerating well Subjective Subjective No concerns today Objective Data Objective Data Patient tolerated number treatment #9 of 30 we will continue with scheduled treatments Wednesday for now Vital Signs: Vital Signs Temp Pulse Resp BP 96.9 F L 103 H 17 127/63 H 09/01/21 12:24 09/01/21 12:24 09/01/21 12:24 09/01/21 12:24 Weight: 177 lb Body Mass Index (BMI) 26.9 Lab / Micro Data Labs: Laboratory Results - last 24 hr 09/03/21 10:21: POC Glucose 195 H 09/03/21 12:29: POC Glucose 109 H Assessment/Plan Assessment/Plan (1) Non-pressure 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: CODE(S): L97.212 - Non-pressure 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 (2) 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: CODE(S): L97.512 - 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 (3) Type 2 diabetes mellitus with diabetic polyneuropathy: CODE(S): E11.42 - Type 2 diabetes mellitus with diabetic polyneuropathy QUALIFIERS: Diabetes mellitus award clerk insulin use: with skilled nursing use Qualified Code(s): E11.42 - Type 2 diabetes mellitus with diabetic polyneuropathy; Z79.4 - label designer (current) use of 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
[2021-09-03 13:09] VITALS: BP 108/65; BP 122/70; PULSE 109; PULSE 78; RESP 17; TEMP 36.2
[2021-09-04 11:44] VITALS: BP 143/80; PULSE 94; RESP 16; TEMP 35.9; BMI 26.9
--- NOTE | 2021-09-04 13:30 | PCM.WC.PN ---
History of Present Illness Date of Service: 09/04/21 Chief Complaint: right foot ulcer and Right Leg wound History of Wound: This 55-year-old female presents for care of right foot wound. She had surgery at [facility] in November 2020. She denies current fever, chill, nausea, vomiting. She denies delays in wound care and has been applying saline wet-to-dry to help with home health. She relates her bone biopsy that was obtained during her foot surgery was negative for osteomyelitis. She has a PICC placed and saw infectious disease specialist, Dr. Paez at [facility]. She relates she is almost complete with her IV antibiotic course. She is offloading with a surgical shoe. She takes nutritional supplementation including vitamin D and B. She denies claudication. She does have rest paresthesias. She is diabetic with an A1c of over 8%. She also has history of back injuries. Since her last visit, she reports she had thick fluid squirting out of the wound with application of her silver dressing. She was concerned it was infected and called in yesterday. She is advised by nursing staff to go to the emergency room if she thought she had a rapid onset infection. She relates she is scheduled to see her surgeon tomorrow. She did not obtain the previously ordered labs and foot x-rays. She denies current redness or odor. Medical records reviewed from and it is noted she had right foot incision and drainage of fifth metatarsal on 12-04-20. Her surgeon was Dr. Blanchard. She is advised wearing AFO brace. It is noted she started on Bactrim and then after the surgery she was placed on IV antibiotics. She later developed an infection of her right foot ulceration and underwent I&D with wide debridement on 05-23-21 and 05-28-[address] Alexandre and Dr. Gonzalez. Cultures were positive for MRSA and Enterococcus and was placed on IV Vancomycin by infectious disease. She was discharged to a correction facility with instructions for wound vac application to right anterior leg and lateral right foot and wet to dry Dakin's dressings to the right foot. Allergies: Clindamycin Medications cyclo-Benzapril, NuvaRing, Advil, Cytomel, Cushing, armodafinil, Singulair, Synthroid, Lyrica Past medical history: diabetes and history of back surgery, ankle surgery, right knee arthroscopy Social history: former smoker and no current tobacco use; quit in 1981 Progress of Wound: Progress: Today is the 9th treatment of hyperbaric oxygen therapy. The patient is scheduled for 30 treatments total. Vital signs stable on admission and discharge patient is tolerating well Subjective Subjective This is a 55-year-old female who presents to the wound care center for follow-up of her right anterior lower extremity wound and a right lateral foot wound. She underwent incision and drainage for a deep abscess and cellulitis on 05/22/2021 and 05/28/2021. She continues to states she is doing well. She continues to deny any constitutional symptoms. She continues to deny any pain to the site. She states she has resumed her hyperbaric dives post ear tube placement. She states she is now on a medication for her syncope episodes secondary to her hyperbaric dives. He has no other complaints today. Objective Data Objective Data Vital Signs: Vital Signs Temp Pulse Resp BP 96.6 F L 94 16 143/80 H 09/04/21 11:44 09/04/21 11:44 09/04/21 11:44 09/04/21 11:44 Weight: 80.286 kg Body Mass Index (BMI) 26.9 Physical Exam Const alert, oriented x3 and no apparent distress General Appearance: cooperative and comfortable HEENT normocephalic Eyes General Eye: normal appearance of both eyes Neck General: normal visual inspection Lymph Lymphatic: no lymphadenopathy noted and no lymphedema noted Resp normal respiratory effort Cardio regular rate and regular rhythm Extremity normal capillary refill and no calf tenderness Skin Skin Narrative: Ulceration site to the right anterior lower extremity and right lateral foot. Medial cicatrix noted. Surrounding skin is intact soft, supple, and atrophic. She is demonstrating rash secondary to wound VAC dressing on the medial aspect of the leg. Wound Narrative: All wounds are secondary to previous surgical debridement for an abscess of the foot and anterior compartment of the lower extremity. Lateral foot ulceration right foot demonstrates improvement and granulating in well. Grafting product intact. There is granular tissue with no localized erythema, no purulent drainage, no malodor, or other localized signs of infection. Medial right foot wound is healed with a stable cicatrix noted and no localized signs of infection. Right lower extremity anterior leg wound is granulating in well and demonstrates no exposed tendon with a good goose pimple granular layer. Ulcerative site is closing proximally and distally. There are skin islands between patches of granular tissue at the proximal aspect. Ulcerative sites demonstrate no localized signs of infection. Neuro oriented x3 and moves all extremities Debridement Note Debridement Note Wound debrided: Right anterior lower leg Laterality: Right Wound Grade/Stage: Gonzalez stage III Type of Debridement: Excisional debridement Depth: Down to and including healthy tissue and in the subcutaneous layer Percentage of wound debrided: 100 Instrument Used: #15 blade Tissue Removed: Fibrous, devitalized subcutaneous, biofilm, slough Severity: Fat Layer Exposed Amount of bleeding with debridement: Mild Bleeding Controlled with: Compression and gauze Patient tolerated procedure: Patient tolerated procedure well Post-Debridement Measurements and Additional Note: Post-Debridement Measurements/Treatment WC - Nurse 1 - General Ulcer Assessment Start: 08/25/21 13:09 Freq: Status: Active Protocol: ALISSA.LOWEXT Activity Type Activity Date Activity User E-Sign Co-Sign Detail Recorded Client Recorded Date Recorded By Document 08/28/21 11:03 KR [id number] 08/28/21 11:07 KR Document 09/04/21 11:44 ML [id number] 09/04/21 11:47 ML 08/28/21 09/04/21 11:03 11:44 WC - Today's Visit Information Type of service Follow-up Visit Follow-up Visit (Physician/TIRE TECHNICIAN (Physician/TIRE TECHNICIAN ) ) Arrival Mode Wheelchair Wheelchair Transfer Assistance None Accompanied by mom Patient Identification Verified (Name & Yes Yes ) Patient Requires Transmission-Based No Precautions Safety Precautions NA Height and Weight Body Mass Index (BMI) 26.9 26.9 BMI Classification Overweight Overweight Vital Signs Temperature (97.8 F-99.1 F) 96.9 F L 96.6 F L Temperature Source Temporal Temporal Pulse Rate (60-100) 68 94 Pulse Location Monitor Monitor Respiratory Rate (12-18) 16 Respiratory rate source Observation Blood Pressure (90/60-120/80) 128/76 H 143/80 H Blood Pressure Mean (mm Hg) 93 101 Source Monitor Monitor Position Sitting Sitting Blood Pressure Location Left Arm Left Arm History Since Last Visit- (Skip if this is Patient's initial visit) Have you changed medications since your No No last visit? Any new allergies or adverse reactions No No Had a fall/change in ADL's that may No No increase risk of falls Signs or symptoms of abuse and/or No No neglect since last visit Have you been in the hospital since your No No last visit? Has dressing in place as prescribed Yes Yes Has compression in place as prescribed N/A Yes Has offloadiing in place as prescribed N/A Yes Experienced any changes in pain level or No No management Left Footwear No Footwear Right Footwear No Footwear Pain Scale: 0-10 Numeric Is Patient Pain Free? Yes Yes WC - Nurse 1 - General Ulcer Measurement Start: 08/25/21 13:09 Freq: Status: Active Protocol: Activity Type Activity Date Activity User E-Sign Co-Sign Detail Recorded Client Recorded Date Recorded By Document 08/28/21 11:03 KR [id number] 08/28/21 11:07 KR Document 09/04/21 11:44 ML [id number] 09/04/21 11:47 ML 08/28/21 09/04/21 11:03 11:44 Wound Center Nurse 1 #4 R LATERAL FOOT -Current Size (cm) - Length 1.6 0.5 -Current Size (cm) - Width 0.5 1 -Current Size (cm) - Depth 0.1 0.1 -Total Square Cm 0.80 0.5 -Exudate Amt Large Medium -Exudate Type Serosanguineous Serosanguineous -Wound Margin Distinct, Distinct, Outline Outline Attached Attached -Granulation Amt Large (67-100%) Medium (34-66%) -Granulation Quality Hyper- granulation,Red -Slough/Fibrin Yes -Necrosis Amt Medium (34-66%) -Necrotic Tissue Type Adherent Slough -Texture (Marie-wound Skin Appearance) Assessed, Assessed Scarring -Moisture (Marie-wound Skin Appearance) No Abnormality, Assessed Assessed, Maceration -Color (Marie-wound Skin Appearance) No Abnormality, Assessed Assessed -Temperature (Marie-wound Skin No Abnormality Appearance) (Pt Warm) -Tenderness on Palpation (Marie-wound Yes Skin Appearance) -Ulcer Cleansing Soap and Water Soap and Water -Foul Odor after Cleansing Yes No -Anesthetic Used 4% Lidocaine 4% Lidocaine Solution Solution #2 R MID LOWER LEG -Current Size (cm) - Length 24.9 16 -Current Size (cm) - Width 3.6 3 -Current Size (cm) - Depth 0.1 0.1 -Total Square Cm 89.64 48 -Exudate Amt Large Medium -Exudate Type Serosanguineous Serosanguineous -Wound Margin Distinct, Distinct, Outline Outline Attached Attached -Granulation Amt Large (67-100%) Medium (34-66%) -Granulation Quality Red -Slough/Fibrin Yes -Necrosis Amt Medium (34-66%) -Necrotic Tissue Type Adherent Slough -Texture (Marie-wound Skin Appearance) Assessed, Assessed Scarring -Moisture (Marie-wound Skin Appearance) No Abnormality, Assessed Assessed -Color (Marie-wound Skin Appearance) No Abnormality, Assessed Assessed -Temperature (Marie-wound Skin No Abnormality No Abnormality Appearance) (Pt Warm) (Pt Warm) -Tenderness on Palpation (Marie-wound Yes No Skin Appearance) -Ulcer Cleansing Soap and Water Soap and Water -Foul Odor after Cleansing No No -Anesthetic Used 4% Lidocaine 4% Lidocaine Solution Solution WC - Nurse 2 - General Ulcer CM Notes Start: 08/25/21 13:09 Freq: Status: Active Protocol: Activity Type Activity Date Activity User E-Sign Co-Sign Detail Recorded Client Recorded Date Recorded By Document 08/28/21 12:23 PL [id number] 08/28/21 12:29 PL 08/28/21 12:23 Wound Center Nurse 2 #4 R LATERAL FOOT -Time 11:17 -Correct Patient Yes -Correct Side, Site, Position Yes -Correct Procedure Yes -Procedure Performed Yes -Type of Procedure Debridement -Clinical Debridement Subcutaneous -Tissue Removed Subcutaneous -Post Debridement (cm) - Length 1.6 -Post Debridement (cm) - Width 0.5 -Post Debridement (cm) - Depth 0.1 -Total Square (Post) (cm) 0.80 -Area of Debridement (cm) - Length 1.6 -Area of Debridement (cm) - Width 0.5 -Total Square (Area) (cm) 0.80 -Tunneling No -Undermining/Tunneling No -Circular Undermining No -Wound/Ulcer Outcome Not Healed -Ulcer Cleansing Rinsed/ Irrigated with Saline -Foul Odor after Cleansing No -Bioengineered Tissue Yes -Type of Bioengineered Tissue Theraskin -Expiration Date 08/03/24 -Product Lot Number [id number] -Percent Used 100 -Bleeding Controlled with Pressure -Treatment Response Procedure Tolerated Well -Debridement - Subq, 1st 20sq cm No -Apply Skin Sub - 1st 25 sq cm - Feet 1 -Theraskin (per sq cm) 13 #2 R MID LOWER LEG -Time 11:17 -Correct Patient Yes -Correct Side, Site, Position Yes -Correct Procedure Yes -Procedure Performed Yes -Type of Procedure Debridement -Clinical Debridement Subcutaneous -Tissue Removed Subcutaneous -Post Debridement (cm) - Length 24.9 -Post Debridement (cm) - Width 3.6 -Post Debridement (cm) - Depth 0.1 -Total Square (Post) (cm) 89.64 -Area of Debridement (cm) - Length 24.9 -Area of Debridement (cm) - Width 3.6 -Total Square (Area) (cm) 89.64 -Tunneling No -Undermining/Tunneling No -Circular Undermining No -Wound/Ulcer Outcome Not Healed -Ulcer Cleansing Rinsed/ Irrigated with Saline -Foul Odor after Cleansing No -Bioengineered Tissue Yes -Type of Bioengineered Tissue Theraskin -Expiration Date 08/15/25 -Product Lot Number [id number] -Percent Used 100 -Bleeding Controlled with Pressure -Treatment Response Procedure Tolerated Well -Debridement - Subq, 1st 20sq cm No -Apply Skin Sub - 1st 25 sq cm - Legs 1 -Theraskin (per sq cm) 116 Pain Scale: 0-10 Numeric Is Patient Pain Free? Yes WC - Nurse 3 - General Ulcer D/C NN Start: 08/25/21 13:09 Freq: Status: Active Protocol: Activity Type Activity Date Activity User E-Sign Co-Sign Detail Recorded Client Recorded Date Recorded By Document 08/28/21 11:45 KR [id number] 08/28/21 11:53 KR Edit Result 08/28/21 11:45 KR (1) [id number] 08/29/21 06:52 PL Document 09/04/21 12:49 AK [id number] 09/04/21 12:50 AK (1) Right - Multi-Layered Wrap Application => Unna Boot - Right => ($) - Compression Wrap Unna Boot ($) ( => single) => 08/28/21 09/04/21 11:45 12:49 Wound Care Nurse 3 #4 R LATERAL FOOT -Ulcer Cleansing Rinsed/ Irrigated with Saline -Foul Odor after Cleansing No -Negative Pressure Wound Therapy N/A -Primary Dressing Applied Optilok 8x12 -Primary Dressing Covered/Secured with Dry Gauze, Secured with Tape -Optilok 8x12 1 #2 R MID LOWER LEG -Primary Dressing Covered/Secured with Dry Gauze, Secured with Tape Right -Lotion applied to leg before No compression wrap -Multi-Layered Wrap Application Unna Boot - Unna Boot - Right ($) Right ($) Pain Scale: 0-10 Numeric Is Patient Pain Free? Yes Yes WC - Visit Discharge Discharge Condition Stable Stable Ambulatory Status Ambulatory Wheelchair Transportation Private Auto Private Auto Accompanied by mom Medication Reconcilliation completed & Yes provided to patient/care provider Clinical Summary of Care Provided Yes Additional Wound Wound debrided: Right lateral foot Laterality: Right Wound Grade/Stage: Gonzalez stage III Type of Debridement: Excisional debridement Depth: Down to and including healthy tissue and in the subcutaneous layer Percentage of wound debrided: 100 Instrument Used: #15 blade Tissue Removed: Fibrous, devitalized subcutaneous, biofilm, slough Severity: Fat Layer Exposed Amount of bleeding with debridement: Mild Bleeding Controlled with: Compression and gauze Patient tolerated procedure: Patient tolerated procedure well Assessment/Plan Assessment/Plan (1) Chronic ulcer of right foot due to diabetes mellitus: CODE(S): E11.621 - Type 2 diabetes mellitus with foot ulcer; L97.519 - Non-pressure chronic ulcer of other part of right foot with unspecified severity (2) Non-pressure 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: CODE(S): L97.212 - Non-pressure 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 (3) 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: CODE(S): L97.512 - 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 (4) Type 2 diabetes mellitus with diabetic polyneuropathy: CODE(S): E11.42 - Type 2 diabetes mellitus with diabetic polyneuropathy QUALIFIERS: Diabetes mellitus long distance operator insulin use: with long distance operator use Qualified Code(s): E11.42 - Type 2 diabetes mellitus with diabetic polyneuropathy; Z79.4 - alf (current) use of insulin (5) Type 2 diabetes mellitus with foot ulcer: CODE(S): E11.621 - Type 2 diabetes mellitus with foot ulcer; L97.509 - Non-pressure chronic ulcer of other part of unspecified foot with unspecified severity QUALIFIERS: Diabetes mellitus group home insulin use: with group home use Qualified Code(s): E11.621 - Type 2 diabetes mellitus with foot ulcer; L97.509 - Non-pressure chronic ulcer of other part of unspecified foot with unspecified severity; Z79.4 - alf (current) use of insulin (6) Charcot's joint of right foot: CODE(S): M14.671 - Charcot's joint, right ankle and foot (7) Hypothyroidism: CODE(S): E03.9 - Hypothyroidism, unspecified QUALIFIERS: Hypothyroidism type: unspecified Qualified Code(s): E03.9 - Hypothyroidism, unspecified PLAN: This is a 55-year-old female with history of wide I&D and deep debridement of the right foot and ankle from 05/23/2021 and 05/28/[address] Alexand[address] and Dr. Gonzalez, podiatric specialist. She has history of MRSA infection. Her wounds are complicated by diabetes mellitus type 2 with peripheral polyneuropathy, Charcot joint deformity of the right foot, hypothyroidism. Following surgical debridement and recovery in the hospital she was on IV antibiotics vancomycin. Infectious disease discontinued her vancomycin and placed her on daptomycin. She was discharged to a correction facility where they have been continuing daily dressing changes wet-to-dry Dakin's. Patient and daughter were unhappy with the nursing facility and changed to a different correction facility where they were much happier with her care. She has since been discharged from the nursing facility to her home on 07/11/2021. She has been compliant with her nonweightbearing status to her right lower extremity. She is accompanied by her mother today to the wound care center for follow-up of her wounds to her right lower extremity. She is continuing to be compliant with wound VAC changes every 2 to 3 days to the right anterior leg and right lateral foot wounds. She has undergone tube placement for her ears and is continuing her HBO dives. The right anterior lower extremity wound is continuing to progress closing at the most proximal and most distal portions with new skin coverage. TheraSkin graft is taking well to the wound bed and wound margins. Her wounds demonstrate no localized signs of infection. The surrounding skin is intact and atrophic. Right lateral foot wound is nearing closure. The medial right foot wound is healed with a stable cicatrix. TheraSkin graft applied to the right anterior lower extremity wound and right lateral foot wound. Sites were dressed with wound veil and anchored with Steri-Strips. We will continue with Unna boot to the right lower extremity. She is instructed to leave dressings clean, dry, and intact. Her right lower extremity anterior wound is a Gonzalez grade 3 at her right lateral foot wound is a Gonzalez grade 3, right medial foot wound Gonzalez grade 3. She underwent a surgical debridement of all 3 of these Gonzalez grade 3 wounds to the right lower extremity on 05/23/2021 to drain a deep abscess and debride necrotic tissue and tendon. She underwent a second debridement procedure on 05/28/2021 to drain deep anterior compartment abscess of the right lower extremity. She had undergone and completed 8 weeks of IV vancomycin and her PICC line was pulled on 07/09/2021. There is no localized signs of infection to any of the right foot wounds. Grafting product is applied to the right anterior wound and right lateral foot wound. She continues to make good progress in her healing status. She is very pleased with her treatment progress. I discussed with her to continue to ensure proper diabetic glycemic control and intake of protein to ensure wound healing and graft take. I reviewed and discussed her case today. Debridement was performed today as noted in the clinical panel to all of the ulcer sites. The following work up and care recommendations were made: Dressing: Leave TheraSkin graft in place with wound veil covering and Unna boot Wash: Do not wash Tissue growth optimization: TheraSkin skin substitute right anterior leg wound and lateral foot wound Offload: Nonweightbearing right lower extremity with elevation via soft pillows Vascular: Edema: Unna boot will aid in edema control along with elevation of lower extremity Infection: No localized signs of infection Pain: Continue with Motrin and Tylenol extra strength at home Host factors: History of MRSA and Enterococcus infection. Diabetes type 2 with peripheral polyneuropathy, discussed proper glycemic control and intake of protein to ensure wound healing. I answered all the patient's questions. To return to the wound healing center in 1 week or call sooner if the patient has any questions or concerns. Note: [employer] speech recognition learning and development analyst software was used to create portions of this document. Sound-alike and misspelled words, as well as other learning and development analyst errors may be contained in the documentation.
[2021-09-05 10:15] LABS: Bedside Glucose 146 mg/dL (74-106)
[2021-09-05 12:35] LABS: Bedside Glucose 103 mg/dL (74-106)
--- NOTE | 2021-09-05 13:38 | HBO.PN.PCM_ITS ---
History of Present Illness Date of Service: 09/05/21 Chief Complaint: right foot ulcer and Right Leg wound History of Wound: This 55-year-old female presents for care of right foot wound. She had surgery at [facility] in November 2020. She denies current fever, chill, nausea, vomiting. She denies delays in wound care and has been applying saline wet-to-dry to help with home health. She relates her bone biopsy that was obtained during her foot surgery was negative for osteomyelitis. She has a PICC placed and saw infectious disease specialist, Dr. Paez at [facility]. She relates she is almost complete with her IV antibiotic course. She is offloading with a surgical shoe. She takes nutritional supplementation including vitamin D and B. She denies claudication. She does have rest paresthesias. She is diabetic with an A1c of over 8%. She also has history of back injuries. Since her last visit, she reports she had thick fluid squirting out of the wound with application of her silver dressing. She was concerned it was infected and called in yesterday. She is advised by nursing staff to go to the emergency room if she thought she had a rapid onset infection. She relates she is scheduled to see her surgeon tomorrow. She did not obtain the previously ordered labs and foot x-rays. She denies current redness or odor. Medical records reviewed from and it is noted she had right foot incision and drainage of fifth metatarsal on 12-04-20. Her surgeon was Dr. Blanchard. She is advised wearing AFO brace. It is noted she started on Bactrim and then after the surgery she was placed on IV antibiotics. She later developed an infection of her right foot ulceration and underwent I&D with wide debridement on 05-23-21 and 05-28-[address] Alexandre and Dr. Gonzalez. Cultures were positive for MRSA and Enterococcus and was placed on IV Vancomycin by infectious disease. She was discharged to a halfway facility with instructions for wound vac application to right anterior leg and lateral right foot and wet to dry Dakin's dressings to the right foot. Allergies: Clindamycin Medications cyclo-Benzapril, NuvaRing, Advil, Cytomel, Braxton, armodafinil, Singulair, Synthroid, Lyrica Past medical history: diabetes and history of back surgery, ankle surgery, right knee arthroscopy Social history: former smoker and no current tobacco use; quit in 1981 Progress of Wound: Progress: Today is the 10th treatment of hyperbaric oxygen therapy. The patient is scheduled for 30 treatments total. Vital signs stable on admission and discharge patient is tolerating well Subjective Subjective Patient presents today for hyperbaric oxygen therapy treatment. Today's session represents the 10th such session of a planned 30 sessions. Hyperbaric oxygen therapy was administered as per the facility's protocol. Hyperbaric oxygen therapy was administered at 2 forrest for 90 minutes with no air breaks. Patient tolerated hyperbaric oxygen therapy well, without complaints or complications. Upon emergence from the hyperbaric chamber, the patient's vital signs remained stable. Blood glucose measurements were obtained both prior to and following hyperbaric oxygen therapy, and are recorded elsewhere. The patient was discharged in good condition. Objective Data Objective Data Vital Signs: Vital Signs Temp Pulse Resp BP 96.6 F L 94 16 143/80 H 09/04/21 11:44 09/04/21 11:44 09/04/21 11:44 09/04/21 11:44 Weight: 80.286 kg Body Mass Index (BMI) 26.9 Lab / Micro Data Labs: Laboratory Results - last 24 hr 09/05/21 10:12: POC Glucose 146 H 09/05/21 12:23: POC Glucose 103 Exam Physical Exam Const alert, oriented x3 and no apparent distress Psych mental status grossly normal, thought process normal, cooperative, affect normal and speech normal Nursing Assessment and Debridement Post-Debridement Measurements and Additional Note: Post-Debridement Measurements/Treatment WC - Nurse 1 - General Ulcer Assessment Start: 08/25/21 13:09 Freq: Status: Active Protocol: WC.[email or web address] Activity Type Activity Date Activity User E-Sign Co-Sign Detail Recorded Client Recorded Date Recorded By Document 09/04/21 11:44 ML [id number] 09/04/21 11:47 ML 09/04/21 11:44 - Today's Visit Information Type of service Follow-up Visit (Physician/AUTOMATION ENGINEER ) Arrival Mode Wheelchair Transfer Assistance None Patient Identification Verified (Name & Yes ) Patient Requires Transmission-Based No Precautions Safety Precautions NA Height and Weight Body Mass Index (BMI) 26.9 BMI Classification Overweight Vital Signs Temperature (97.8 F-99.1 F) 96.6 F L Temperature Source Temporal Pulse Rate (60-100) 94 Pulse Location Monitor Respiratory Rate (12-18) 16 Respiratory rate source Observation Blood Pressure (90/60-120/80) 143/80 H Blood Pressure Mean (mm Hg) 101 Source Monitor Position Sitting Blood Pressure Location Left Arm History Since Last Visit- (Skip if this is Patient's initial visit) Have you changed medications since your No last visit? Any new allergies or adverse reactions No Had a fall/change in ADL's that may No increase risk of falls Signs or symptoms of abuse and/or No neglect since last visit Have you been in the hospital since your No last visit? Has dressing in place as prescribed Yes Has compression in place as prescribed Yes Has offloadiing in place as prescribed Yes Experienced any changes in pain level or No management Left Footwear No Footwear Right Footwear No Footwear Pain Scale: 0-10 Numeric Is Patient Pain Free? Yes WC - Nurse 1 - General Ulcer Measurement Start: 08/25/21 13:09 Freq: Status: Active Protocol: Activity Type Activity Date Activity User E-Sign Co-Sign Detail Recorded Client Recorded Date Recorded By Document 09/04/21 11:44 ML [id number] 09/04/21 11:47 ML 09/04/21 11:44 Wound Center Nurse 1 #4 R LATERAL FOOT -Current Size (cm) - Length 0.5 -Current Size (cm) - Width 1 -Current Size (cm) - Depth 0.1 -Total Square Cm 0.5 -Exudate Amt Medium -Exudate Type Serosanguineous -Wound Margin Distinct, Outline Attached -Granulation Amt Medium (34-66%) -Slough/Fibrin Yes -Necrosis Amt Medium (34-66%) -Necrotic Tissue Type Adherent Slough -Texture (Marie-wound Skin Appearance) Assessed -Moisture (Marie-wound Skin Appearance) Assessed -Color (Marie-wound Skin Appearance) Assessed -Temperature (Marie-wound Skin No Abnormality Appearance) (Pt Warm) -Tenderness on Palpation (Marie-wound Yes Skin Appearance) -Ulcer Cleansing Soap and Water -Foul Odor after Cleansing No -Anesthetic Used 4% Lidocaine Solution #2 R MID LOWER LEG -Current Size (cm) - Length 16 -Current Size (cm) - Width 3 -Current Size (cm) - Depth 0.1 -Total Square Cm 48 -Exudate Amt Medium -Exudate Type Serosanguineous -Wound Margin Distinct, Outline Attached -Granulation Amt Medium (34-66%) -Slough/Fibrin Yes -Necrosis Amt Medium (34-66%) -Necrotic Tissue Type Adherent Slough -Texture (Marie-wound Skin Appearance) Assessed -Moisture (Marie-wound Skin Appearance) Assessed -Color (Marie-wound Skin Appearance) Assessed -Temperature (Marie-wound Skin No Abnormality Appearance) (Pt Warm) -Tenderness on Palpation (Marie-wound No Skin Appearance) -Ulcer Cleansing Soap and Water -Foul Odor after Cleansing No -Anesthetic Used 4% Lidocaine Solution WC - Nurse 2 - General Ulcer CM Notes Start: 08/25/21 13:09 Freq: Status: Active Protocol: Activity Type Activity Date Activity User E-Sign Co-Sign Detail Recorded Client Recorded Date Recorded By Document 09/04/21 14:42 PL [id number] 09/04/21 14:47 PL 09/04/21 14:42 Wound Center Nurse 2 #4 R LATERAL FOOT -Time 12:04 -Correct Patient Yes -Correct Side, Site, Position Yes -Correct Procedure Yes -Procedure Performed Yes -Type of Procedure Debridement -Clinical Debridement Subcutaneous -Tissue Removed Subcutaneous -Post Debridement (cm) - Length 0.5 -Post Debridement (cm) - Width 1.0 -Post Debridement (cm) - Depth 0.1 -Total Square (Post) (cm) 0.50 -Area of Debridement (cm) - Length 0.5 -Area of Debridement (cm) - Width 1.0 -Total Square (Area) (cm) 0.50 -Tunneling No -Undermining/Tunneling No -Circular Undermining No -Wound/Ulcer Outcome Not Healed -Ulcer Cleansing Rinsed/ Irrigated with Saline -Foul Odor after Cleansing No -Bioengineered Tissue No -Bleeding Controlled with Pressure -Treatment Response Procedure Tolerated Well -Debridement - Subq, 1st 20sq cm No #2 R MID LOWER LEG -Time 12:04 -Correct Patient Yes -Correct Side, Site, Position Yes -Correct Procedure Yes -Procedure Performed Yes -Type of Procedure Debridement -Clinical Debridement Subcutaneous -Tissue Removed Subcutaneous -Post Debridement (cm) - Length 16.0 -Post Debridement (cm) - Width 3.0 -Post Debridement (cm) - Depth 0.1 -Total Square (Post) (cm) 48.00 -Area of Debridement (cm) - Length 16.0 -Area of Debridement (cm) - Width 3.0 -Total Square (Area) (cm) 48.00 -Tunneling No -Undermining/Tunneling No -Circular Undermining No -Wound/Ulcer Outcome Not Healed -Ulcer Cleansing Rinsed/ Irrigated with Saline -Foul Odor after Cleansing No -Bioengineered Tissue Yes -Type of Bioengineered Tissue Theraskin -Expiration Date 08/14/25 -Product Lot Number [id number] -Percent Used 100 -Bleeding Controlled with Pressure -Treatment Response Procedure Tolerated Well -Debridement - Subq, 1st 20sq cm No -Apply Skin Sub - 1st 25 sq cm - Legs 1 -Theraskin (per sq cm) 116 Pain Scale: 0-10 Numeric Is Patient Pain Free? Yes - Nurse 3 - General Ulcer D/C NN Start: 08/25/21 13:09 Freq: Status: Active Protocol: Activity Type Activity Date Activity User E-Sign Co-Sign Detail Recorded Client Recorded Date Recorded By Document 09/04/21 12:49 VALARIE [id number] 09/04/21 12:50 VALARIE 09/04/21 12:49 Wound Care Nurse 3 #4 R LATERAL FOOT -Foul Odor after Cleansing No -Negative Pressure Wound Therapy N/A -Primary Dressing Applied Optilok 8x12 -Optilok 8x12 1 Right -Lotion applied to leg before No compression wrap -Multi-Layered Wrap Application Unna Boot - Right ($) Pain Scale: 0-10 Numeric Is Patient Pain Free? Yes - Visit Discharge Discharge Condition Stable Ambulatory Status Wheelchair Transportation Private Auto Accompanied by mom Medication Reconcilliation completed & Yes provided to patient/care provider Clinical Summary of Care Provided Yes Assessment/Plan Assessment/Plan (1) Non-pressure 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: CODE(S): L97.212 - Non-pressure 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 (2) 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: CODE(S): L97.512 - 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 (3) Chronic ulcer of right foot due to diabetes mellitus: CODE(S): E11.621 - Type 2 diabetes mellitus with foot ulcer; L97.519 - Non-pressure chronic ulcer of other part of right foot with unspecified severity (4) Type 2 diabetes mellitus with diabetic polyneuropathy: CODE(S): E11.42 - Type 2 diabetes mellitus with diabetic polyneuropathy QUALIFIERS: Diabetes mellitus truck terminal manager insulin use: with truck terminal manager use Qualified Code(s): E11.42 - Type 2 diabetes mellitus with diabetic polyneuropathy; Z79.4 - petroleum terminal plant operator (current) use of insulin (5) Type 2 diabetes mellitus with foot ulcer: CODE(S): E11.621 - Type 2 diabetes mellitus with foot ulcer; L97.509 - Non-pressure chronic ulcer of other part of unspecified foot with unspecified severity QUALIFIERS: Diabetes mellitus long-term insulin use: with truck terminal manager use Qualified Code(s): E11.621 - Type 2 diabetes mellitus with foot ulcer; L97.509 - Non-pressure chronic ulcer of other part of unspecified foot with unspecified severity; Z79.4 - alf (current) use of insulin (6) Charcot's joint of right foot: CODE(S): M14.671 - Charcot's joint, right ankle and foot (7) Hypothyroidism: CODE(S): E03.9 - Hypothyroidism, unspecified QUALIFIERS: Hypothyroidism type: unspecified Qualified Code(s): E03.9 - Hypothyroidism, unspecified PLAN: The patient appears to be tolerating hyperbaric oxygen therapy well, which will be continued as per her medical treatment plan.
[2021-09-05 14:27] VITALS: BP 129/66; BP 134/63; PULSE 67; PULSE 89; RESP 16; TEMP 35.9
[2021-09-08 10:10] LABS: Bedside Glucose 152 mg/dL (74-106)
--- NOTE | 2021-09-08 10:28 | HBO.PN.PCM_ITS ---
History of Present Illness Date of Service: 09/08/21 Chief Complaint: right foot ulcer and Right Leg wound History of Wound: This 55-year-old female presents for care of right foot wound. She had surgery at [facility] in November 2020. She denies current fever, chill, nausea, vomiting. She denies delays in wound care and has been applying saline wet-to-dry to help with home health. She relates her bone biopsy that was obtained during her foot surgery was negative for osteomyelitis. She has a PICC placed and saw infectious disease specialist, Dr. Paez at [facility]. She relates she is almost complete with her IV antibiotic course. She is offloading with a surgical shoe. She takes nutritional supplementation including vitamin D and B. She denies claudication. She does have rest paresthesias. She is diabetic with an A1c of over 8%. She also has history of back injuries. Since her last visit, she reports she had thick fluid squirting out of the wound with application of her silver dressing. She was concerned it was infected and called in yesterday. She is advised by nursing staff to go to the emergency room if she thought she had a rapid onset infection. She relates she is scheduled to see her surgeon tomorrow. She did not obtain the previously ordered labs and foot x-rays. She denies current redness or odor. Medical records reviewed from and it is noted she had right foot incision and drainage of fifth metatarsal on 12-04-20. Her surgeon was Dr. Blanchard. She is advised wearing AFO brace. It is noted she started on Bactrim and then after the surgery she was placed on IV antibiotics. She later developed an infection of her right foot ulceration and underwent I&D with wide debridement on 05-23-21 and 05-28-[address] Alexandre and Dr. Gonzalez. Cultures were positive for MRSA and Enterococcus and was placed on IV Vancomycin by infectious disease. She was [facility] to a correction facility with instructions for wound vac application to right anterior leg and lateral right foot and wet to dry Dakin's dressings to the right foot. Allergies: Clindamycin Medications cyclo-Benzapril, NuvaRing, Advil, Cytomel, Benson, armodafinil, Singulair, Synthroid, Lyrica Past medical history: diabetes and history of back surgery, ankle surgery, right knee arthroscopy Social history: former smoker and no current tobacco use; quit in 1981 Subjective Subjective This Patient presents today for hyperbaric oxygen therapy treatment. Today's session represents the 11th such session of a planned 30 sessions. Hyperbaric oxygen therapy was administered as per the facility's protocol. Hyperbaric oxygen therapy was administered at 2 forrest for 90 minutes with no air breaks. Patient tolerated hyperbaric oxygen therapy well, without complaints or complications. Upon emergence from the hyperbaric chamber, the patient's vital signs remained stable. Blood glucose measurements were obtained both prior to and following hyperbaric oxygen therapy, and are recorded elsewhere. The joe sanchez was discharged in good condition. Objective Data Objective Data Vital Signs: Vital Signs Temp Pulse Resp BP 96.7 F L 89 16 129/66 H 09/05/21 14:27 09/05/21 14:27 09/05/21 14:27 09/05/21 14:27 Weight: 177 lb Body Mass Index (BMI) 26.9 Lab / Micro Data Labs: Laboratory Results - last 24 hr 09/08/21 10:08: POC Glucose 152 H Exam Physical Exam Const alert, oriented x3 and no apparent distress General Appearance: cooperative and comfortable HEENT normocephalic, head/scalp atraumatic and TM's normal bilaterally HEENT Narrative: Bilateral eustachian tubes intact Tympanic Membrane: TM's normal bilaterally Resp normal respiratory effort Effort and Inspection: able to speak in complete sentences Psych mental status grossly normal, thought process normal, cooperative and affect normal Assessment/Plan Assessment/Plan (1) Chronic ulcer of right foot due to diabetes mellitus: CODE(S): E11.621 - Type 2 diabetes mellitus with foot ulcer; L97.519 - Non-pressure chronic ulcer of other part of right foot with unspecified severity PLAN: The patient appears to be tolerating hyperbaric oxygen therapy well, which will be continued as per the patient's medical plan. (2) Non-pressure 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: CODE(S): L97.212 - Non-pressure 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 (3) 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: CODE(S): L97.512 - 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 (4) Type 2 diabetes mellitus with diabetic polyneuropathy: CODE(S): E11.42 - Type 2 diabetes mellitus with diabetic polyneuropathy QUALIFIERS: Diabetes mellitus longwall headgate operator insulin use: with longwall headgate operator use Qualified Code(s): E11.42 - Type 2 diabetes mellitus with diabetic polyneuropathy; Z79.4 - intermediate (current) use of insulin (5) Charcot's joint of right foot: CODE(S): M14.671 - Charcot's joint, right ankle and foot (6) Hypothyroidism: CODE(S): E03.9 - Hypothyroidism, unspecified QUALIFIERS: Hypothyroidism type: unspecified Qualified Code(s): E03.9 - Hypothyroidism, unspecified
[2021-09-08 12:25] LABS: Bedside Glucose 98 mg/dL (74-106)
[2021-09-08 13:13] VITALS: BP 124/78; BP 125/79; PULSE 72; PULSE 93; RESP 16; TEMP 35.9
[2021-09-10 10:20] LABS: Bedside Glucose 152 mg/dL (74-106)
--- NOTE | 2021-09-10 10:24 | HBO.PN.PCM_ITS ---
History of Present Illness Date of Service: 09/10/21 Chief Complaint: right foot ulcer and Right Leg wound History of Wound: This 55-year-old female presents for care of right foot wound. She had surgery at [facility] in November 2020. She denies current fever, chill, nausea, vomiting. She denies delays in wound care and has been applying saline wet-to-dry to help with home health. She relates her bone biopsy that was obtained during her foot surgery was negative for osteomyelitis. She has a PICC placed and saw infectious disease specialist, Dr. Paez at [facility]. She relates she is almost complete with her IV antibiotic course. She is offloading with a surgical shoe. She takes nutritional supplementation including vitamin D and B. She denies claudication. She does have rest paresthesias. She is diabetic with an A1c of over 8%. She also has history of back injuries. Since her last visit, she reports she had thick fluid squirting out of the wound with application of her silver dressing. She was concerned it was infected and called in yesterday. She is advised by nursing staff to go to the emergency room if she thought she had a rapid onset infection. She relates she is scheduled to see her surgeon tomorrow. She did not obtain the previously ordered labs and foot x-rays. She denies current redness or odor. Medical records reviewed from and it is noted she had right foot incision and drainage of fifth metatarsal on 12-04-20. Her surgeon was Dr. Blanchard. She is advised wearing AFO brace. It is noted she started on Bactrim and then after the surgery she was placed on IV antibiotics. She later developed an infection of her right foot ulceration and underwent I&D with wide debridement on 05-23-21 and 05-28-[address] Alexandre and Dr[address] Gonzalez. Cultures were positive for MRSA and Enterococcus and was placed on IV Vancomycin by infectious disease. She was discharged to a nursing home facility with instructions for wound vac application to right anterior leg and lateral right foot and wet to dry Dakin's dressings to the right foot. Allergies: Clindamycin Medications cyclo-Benzapril, NuvaRing, Advil, Cytomel, Charlotte, armodafinil, Singulair, Synthroid, Lyrica Past medical history: diabetes and history of back surgery, ankle surgery, right knee arthroscopy Social history: former smoker and no current tobacco use; quit in 1981 Subjective Subjective This Patient presents today for hyperbaric oxygen therapy treatment. Today's session represents the 12th such session of a planned 30 sessions. Hyperbaric oxygen therapy was administered as per the facility's protocol. Hyperbaric oxygen therapy was administered at 2 forrest for 90 minutes with no air breaks. Patient tolerated hyperbaric oxygen therapy well, without complaints or complications. Upon emergence from the hyperbaric chamber, the patient's vital signs remained stable. Blood glucose measurements were obtained both prior to and following hyperbaric oxygen therapy, and are recorded elsewhere. The joe sanchez was discharged in good condition. Objective Data Objective Data Vital Signs: Vital Signs Temp Pulse Resp BP 96.6 F L 93 16 125/79 H 09/08/21 13:13 09/08/21 13:13 09/08/21 13:13 09/08/21 13:13 Weight: 177 lb Body Mass Index (BMI) 26.9 Lab / Micro Data Labs: Laboratory Results - last 24 hr 09/10/21 10:04: POC Glucose 152 H Exam Physical Exam Const alert, oriented x3 and no apparent distress General Appearance: cooperative and comfortable HEENT normocephalic, head/scalp atraumatic and TM's normal bilaterally HEENT Narrative: Bilateral eustachian tubes intact Tympanic Membrane: TM's normal bilaterally Resp normal respiratory effort Effort and Inspection: able to speak in complete sentences Psych mental status grossly normal, thought process normal, cooperative and affect normal
[2021-09-10 12:15] LABS: Bedside Glucose 133 mg/dL (74-106)
[2021-09-10 13:02] VITALS: BP 119/64; BP 121/71; PULSE 101; PULSE 81; RESP 17; TEMP 36
[2021-09-11 11:25] VITALS: BP 130/68; PULSE 114; TEMP 36.7; BMI 26.9
--- NOTE | 2021-09-11 13:06 | PN.PCM_ITS ---
History of Present Illness Date of Service: 09/11/21 Chief Complaint: right foot ulcer and Right Leg wound History of Wound: This 55-year-old female presents for care of right foot wound. She had surgery at [facility] in November 2020. She denies current fever, chill, nausea, vomiting. She denies delays in wound care and has been applying saline wet-to-dry to help with home health. She relates her bone biopsy that was obtained during her foot surgery was negative for osteomyelitis. She has a PICC placed and saw infectious disease specialist, Dr. Paez at [facility]. She relates she is almost complete with her IV antibiotic course. She is offloading with a surgical shoe. She takes nutritional supplementation including vitamin D and B. She denies claudication. She does have rest paresthesias. She is diabetic with an A1c of over 8%. She also has history of back injuries. Since her last visit, she reports she had thick fluid squirting out of the wound with application of her silver dressing. She was concerned it was infected and called in yesterday. She is advised by nursing staff to go to the emergency room if she thought she had a rapid onset infection. She relates she is scheduled to see her surgeon tomorrow. She did not obtain the previously ordered labs and foot x-rays. She denies current redness or odor. Medical records reviewed from and it is noted she had right foot incision and drainage of fifth metatarsal on 12-04-20. Her surgeon was Dr. Blanchard. She is advised wearing AFO brace. It is noted she started on Bactrim and then after the surgery she was placed on IV antibiotics. She later developed an infection of her right foot ulceration and underwent I&D with wide debridement on 05-23-21 and 05-28-[address] Alexandre and Dr. Gonzalez. Cultures were positive for MRSA and Enterococcus and was placed on IV Vancomycin by infectious disease. She was discharged to a snf facility with instructions for wound vac application to right anterior leg and lateral right foot and wet to dry Dakin's dressings to the right foot. Allergies: Clindamycin Medications cyclo-Benzapril, NuvaRing, Advil, Cytomel, [place], armodafinil, Singulair, Synthroid, Lyrica Past medical history: diabetes and history of back surgery, ankle surgery, right knee arthroscopy Social history: former smoker and no current tobacco use; quit in 1981 Progress of Wound: Progress: Today is the 10th treatment of hyperbaric oxygen therapy. The patient is scheduled for 30 treatments total. Vital signs stable on admission and discharge patient is tolerating well Subjective Subjective This is a 55-year-old female who presents to the wound care center for follow-up of her right anterior lower extremity wound and a right lateral foot wound. She underwent incision and drainage for a deep abscess and cellulitis on 05/22/2021 and 05/28/2021. She continues to state she is doing well. She continues to deny any constitutional symptoms. She continues to deny any pain to the site. She states she has resumed her hyperbaric dives post ear tube placement, and these are going well. She states she is taking medication for her syncope episodes secondary to her hyperbaric dives, which is helping. He has no other complaints today. Objective Data Objective Data Vital Signs: Vital Signs Temp Pulse Resp BP 98.0 F 114 H 17 130/68 H 09/11/21 11:25 09/11/21 11:25 09/10/21 13:02 09/11/21 11:25 Weight: 80.286 kg Body Mass Index (BMI) 26.9 Physical Exam Const alert, oriented x3 and no apparent distress General Appearance: cooperative and comfortable HEENT normocephalic Eyes General Eye: normal appearance of both eyes Neck General: normal visual inspection Lymph Lymphatic: no lymphadenopathy noted and no lymphedema noted Resp normal respiratory effort Cardio regular rate and regular rhythm Extremity normal capillary refill and no calf tenderness Skin Skin Narrative: Ulceration site to the right anterior lower extremity and right lateral foot. Medial cicatrix noted. Surrounding skin is intact soft, supple, and atrophic. She is demonstrating rash secondary to wound VAC dressing on the medial aspect of the leg. Wound Narrative: All wounds are secondary to previous surgical debridement for an abscess of the foot and anterior compartment of the lower extremity. Lateral foot ulceration right foot demonstrates improvement and granulating in well. Grafting product intact. There is granular tissue with no localized erythema, no purulent drainage, no malodor, or other localized signs of infection. Medial right foot wound is healed with a stable cicatrix noted and no localized signs of infection. Right lower extremity anterior leg wound is granulating in well and demonstrates no exposed tendon with a good goose pimple granular layer. Ulcerative site is closing proximally and distally. There are skin islands between patches of granular tissue at the proximal aspect. Ulcerative sites demonstrate no localized signs of infection. Neuro oriented x3 and moves all extremities Debridement Note Debridement Note Wound debrided: Right anterior lower extremity Laterality: Right Wound Grade/Stage: Gonzalez stage III Type of Debridement: Excisional debridement Anesthesia Used: 4% Lidocaine Solution Depth: Down to and including healthy tissue and in the subcutaneous layer Percentage of wound debrided: 100 Instrument Used: #15 blade Tissue Removed: Fibrous, devitalized subcutaneous, biofilm, slough Severity: Fat Layer Exposed Amount of bleeding with debridement: Mild Bleeding Controlled with: Compression and gauze Patient tolerated procedure: Patient tolerated procedure well Post-Debridement Measurements and Additional Note: Post-Debridement Measurements/Treatment - Nurse 1 - General Ulcer Assessment Start: 08/25/21 13:09 Freq: Status: Active Protocol: RUKHSANA Activity Type Activity Date Activity User E-Sign Co-Sign Detail Recorded Client Recorded Date Recorded By Document 08/28/21 11:03 KR [id number] 08/28/21 11:07 KR Document 09/04/21 11:44 ML [id number] 09/04/21 11:47 ML Document 09/11/21 11:25 KR [id number] 09/11/21 11:28 KR 08/28/21 09/04/21 09/11/21 11:03 11:44 11:25 - Today's Visit Information Type of service Follow-up Visit Follow-up Visit Follow-up Visit (Physician/COMMUNICATIONS EXECUTIVE (Physician/COMMUNICATIONS EXECUTIVE (Physician/COMMUNICATIONS EXECUTIVE ) ) ) Arrival Mode Wheelchair Wheelchair Wheelchair Transfer Assistance None Accompanied by mom Patient Identification Verified (Name & Yes Yes Yes ) Patient Requires Transmission-Based No Precautions Safety Precautions NA Height and Weight Body Mass Index (BMI) 26.9 26.9 26.9 BMI Classification Overweight Overweight Overweight Vital Signs Temperature (97.8 F-99.1 F) 96.9 F L 96.6 F L 98.0 F Temperature Source Temporal Temporal Temporal Pulse Rate (60-100) 68 94 114 H Pulse Location Monitor Monitor Monitor Respiratory Rate (12-18) 16 Respiratory rate source Observation Blood Pressure (90/60-120/80) 128/76 H 143/80 H 130/68 H Blood Pressure Mean (mm Hg) 93 101 88 Source Monitor Monitor Monitor Position Sitting Sitting Sitting Blood Pressure Location Left Arm Left Arm Left Arm History Since Last Visit- (Skip if this is Patient's initial visit) Have you changed medications since your No No No last visit? Any new allergies or adverse reactions No No No Had a fall/change in ADL's that may No No No increase risk of falls Signs or symptoms of abuse and/or No No No neglect since last visit Have you been in the hospital since your No No No last visit? Has dressing in place as prescribed Yes Yes Yes Has compression in place as prescribed N/A Yes Yes Has offloadiing in place as prescribed N/A Yes N/A Experienced any changes in pain level or No No No management Left Footwear No Footwear Right Footwear No Footwear Pain Scale: 0-10 Numeric Is Patient Pain Free? Yes Yes Yes WC - Nurse 1 - General Ulcer Measurement Start: 08/25/21 13:09 Freq: Status: Active Protocol: Activity Type Activity Date Activity User E-Sign Co-Sign Detail Recorded Client Recorded Date Recorded By Document 08/28/21 11:03 KR [id number] 08/28/21 11:07 KR Document 09/04/21 11:44 ML [id number] 09/04/21 11:47 ML Document 09/11/21 11:25 KR [id number] 09/11/21 11:28 KR 08/28/21 09/04/21 09/11/21 11:03 11:44 11:25 Wound Center Nurse 1 #4 R LATERAL FOOT -Current Size (cm) - Length 1.6 0.5 -Current Size (cm) - Width 0.5 1 -Current Size (cm) - Depth 0.1 0.1 -Total Square Cm 0.80 0.5 -Exudate Amt Large Medium -Exudate Type Serosanguineous Serosanguineous -Wound Margin Distinct, Distinct, Outline Outline Attached Attached -Granulation Amt Large (67-100%) Medium (34-66%) -Granulation Quality Hyper- granulation,Red -Slough/Fibrin Yes -Necrosis Amt Medium (34-66%) -Necrotic Tissue Type Adherent Slough -Texture (Marie-wound Skin Appearance) Assessed, Assessed Scarring -Moisture (Marie-wound Skin Appearance) No Abnormality, Assessed Assessed, Maceration -Color (Marie-wound Skin Appearance) No Abnormality, Assessed Assessed -Temperature (Marie-wound Skin No Abnormality Appearance) (Pt Warm) -Tenderness on Palpation (Marie-wound Yes Skin Appearance) -Ulcer Cleansing Soap and Water Soap and Water -Foul Odor after Cleansing Yes No -Anesthetic Used 4% Lidocaine 4% Lidocaine Solution Solution #2 R MID LOWER LEG -Current Size (cm) - Length 24.9 16 14.5 -Current Size (cm) - Width 3.6 3 3 -Current Size (cm) - Depth 0.1 0.1 0.1 -Total Square Cm 89.64 48 43.5 -Exudate Amt Large Medium Small -Exudate Type Serosanguineous Serosanguineous Serosanguineous -Wound Margin Distinct, Distinct, Distinct, Outline Outline Outline Attached Attached Attached -Granulation Amt Large (67-100%) Medium (34-66%) Large (67-100%) -Granulation Quality Red Red -Slough/Fibrin Yes -Necrosis Amt Medium (34-66%) None Present (0 %) -Necrotic Tissue Type Adherent Slough -Texture (Marie-wound Skin Appearance) Assessed, Assessed Assessed, Scarring Scarring -Moisture (Marie-wound Skin Appearance) No Abnormality, Assessed No Abnormality, Assessed Assessed -Color (Marie-wound Skin Appearance) No Abnormality, Assessed Assessed -Temperature (Marie-wound Skin No Abnormality No Abnormality No Abnormality Appearance) (Pt Warm) (Pt Warm) (Pt Warm) -Tenderness on Palpation (Marie-wound Yes No No Skin Appearance) -Ulcer Cleansing Soap and Water Soap and Water Soap and Water -Foul Odor after Cleansing No No -Anesthetic Used 4% Lidocaine 4% Lidocaine 4% Lidocaine Solution Solution Solution,5% Lidocaine Gel Right Calf (cm) 30.2 Right Ankle (cm) 22 WC - Nurse 2 - General Ulcer CM Notes Start: 08/25/21 13:09 Freq: Status: Active Protocol: Activity Type Activity Date Activity User E-Sign Co-Sign Detail Recorded Client Recorded Date Recorded By Document 08/28/21 12:23 PL [id number] 08/28/21 12:29 PL Document 09/04/21 14:42 PL [id number] 09/04/21 14:47 PL Edit Result 09/04/21 14:42 PL (1) [id number] 09/04/21 14:52 PL (1) #2 R MID LOWER LEG - Apply Skin Sub - 1st 25 sq cm - Legs => 1 08/28/21 09/04/21 12:23 14:42 Wound Center Nurse 2 #4 R LATERAL FOOT -Time 11:17 12:04 -Correct Patient Yes Yes -Correct Side, Site, Position Yes Yes -Correct Procedure Yes Yes -Procedure Performed Yes Yes -Type of Procedure Debridement Debridement -Clinical Debridement Subcutaneous Subcutaneous -Tissue Removed Subcutaneous Subcutaneous -Post Debridement (cm) - Length 1.6 0.5 -Post Debridement (cm) - Width 0.5 1.0 -Post Debridement (cm) - Depth 0.1 0.1 -Total Square (Post) (cm) 0.80 0.50 -Area of Debridement (cm) - Length 1.6 0.5 -Area of Debridement (cm) - Width 0.5 1.0 -Total Square (Area) (cm) 0.80 0.50 -Tunneling No No -Undermining/Tunneling No No -Circular Undermining No No -Wound/Ulcer Outcome Not Healed Not Healed -Ulcer Cleansing Rinsed/ Rinsed/ Irrigated with Irrigated with Saline Saline -Foul Odor after Cleansing No No -Bioengineered Tissue Yes No -Type of Bioengineered Tissue Theraskin -Expiration Date 08/03/24 -Product Lot Number [id number] -Percent Used 100 -Bleeding Controlled with Pressure Pressure -Treatment Response Procedure Procedure Tolerated Well Tolerated Well -Debridement - Subq, 1st 20sq cm No No -Apply Skin Sub - 1st 25 sq cm - Feet 1 -Theraskin (per sq cm) 13 #2 R MID LOWER LEG -Time 11:17 12:04 -Correct Patient Yes Yes -Correct Side, Site, Position Yes Yes -Correct Procedure Yes Yes -Procedure Performed Yes Yes -Type of Procedure Debridement Debridement -Clinical Debridement Subcutaneous Subcutaneous -Tissue Removed Subcutaneous Subcutaneous -Post Debridement (cm) - Length 24.9 16.0 -Post Debridement (cm) - Width 3.6 3.0 -Post Debridement (cm) - Depth 0.1 0.1 -Total Square (Post) (cm) 89.64 48.00 -Area of Debridement (cm) - Length 24.9 16.0 -Area of Debridement (cm) - Width 3.6 3.0 -Total Square (Area) (cm) 89.64 48.00 -Tunneling No No -Undermining/Tunneling No No -Circular Undermining No No -Wound/Ulcer Outcome Not Healed Not Healed -Ulcer Cleansing Rinsed/ Rinsed/ Irrigated with Irrigated with Saline Saline -Foul Odor after Cleansing No No -Bioengineered Tissue Yes Yes -Type of Bioengineered Tissue Theraskin Theraskin -Expiration Date 08/15/25 08/14/25 -Product Lot Number [id number] -Percent Used 100 100 -Bleeding Controlled with Pressure Pressure -Treatment Response Procedure Procedure Tolerated Well Tolerated Well -Debridement - Subq, 1st 20sq cm No No -Apply Skin Sub - 1st 25 sq cm - Legs 1 1 -Theraskin (per sq cm) 116 116 Pain Scale: 0-10 Numeric Is Patient Pain Free? Yes Yes WC - Nurse 3 - General Ulcer D/C NN Start: 08/25/21 13:09 Freq: Status: Active Protocol: Activity Type Activity Date Activity User E-Sign Co-Sign Detail Recorded Client Recorded Date Recorded By Document 08/28/21 11:45 KR [id number] 08/28/21 11:53 KR Edit Result 08/28/21 11:45 KR (1) [id number] 08/29/21 06:52 PL Document 09/04/21 12:49 AK [id number] 09/04/21 12:50 AK (1) Right - Multi-Layered Wrap Application => Unna Boot - Right => ($) - Compression Wrap Unna Boot ($) ( => single) => 08/28/21 09/04/21 11:45 12:49 Wound Care Nurse 3 #4 R LATERAL FOOT -Ulcer Cleansing Rinsed/ Irrigated with Saline -Foul Odor after Cleansing No -Negative Pressure Wound Therapy N/A -Primary Dressing Applied Optilok 8x12 -Primary Dressing Covered/Secured with Dry Gauze, Secured with Tape -Optilok 8x12 1 #2 R MID LOWER LEG -Primary Dressing Covered/Secured with Dry Gauze, Secured with Tape Right -Lotion applied to leg before No compression wrap -Multi-Layered Wrap Application Unna Boot - Unna Boot - Right ($) Right ($) Pain Scale: 0-10 Numeric Is Patient Pain Free? Yes Yes WC - Visit Discharge Discharge Condition Stable Stable Ambulatory Status Ambulatory Wheelchair Transportation Private Auto Private Auto Accompanied by mom Medication Reconcilliation completed & Yes provided to patient/care provider Clinical Summary of Care Provided Yes Assessment/Plan Assessment/Plan (1) Chronic ulcer of right foot due to diabetes mellitus: CODE(S): E11.621 - Type 2 diabetes mellitus with foot ulcer; L97.519 - Non-pressure chronic ulcer of other part of right foot with unspecified severity (2) Non-pressure 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: CODE(S): L97.212 - Non-pressure 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 (3) 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: CODE(S): L97.512 - 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 (4) Type 2 diabetes mellitus with diabetic polyneuropathy: CODE(S): E11.42 - Type 2 diabetes mellitus with diabetic polyneuropathy QUALIFIERS: Diabetes mellitus skilled nursing insulin use: with rat exterminator use Qualified Code(s): E11.42 - Type 2 diabetes mellitus with diabetic polyneuropathy; Z79.4 - lobsterman (current) use of insulin (5) Type 2 diabetes mellitus with foot ulcer: CODE(S): E11.621 - Type 2 diabetes mellitus with foot ulcer; L97.509 - Non-pressure chronic ulcer of other part of unspecified foot with unspecified severity QUALIFIERS: Diabetes mellitus skilled nursing insulin use: with rat exterminator use Qualified Code(s): E11.621 - Type 2 diabetes mellitus with foot ulcer; L97.509 - Non-pressure chronic ulcer of other part of unspecified foot with unspecified severity; Z79.4 - penitentiary (current) use of insulin (6) Charcot's joint of right foot: CODE(S): M14.671 - Charcot's joint, right ankle and foot (7) Hypothyroidism: CODE(S): E03.9 - Hypothyroidism, unspecified QUALIFIERS: Hypothyroidism type: unspecified Qualified Code(s): E03.9 - Hypothyroidism, unspecified PLAN: This is a 55-year-old female with history of wide I&D and deep debridement of the right foot and ankle from 05/23/2021 and 05/28/[address] Alexand[address] and Dr. Gonzalez, podiatric specialist. She has history of MRSA infection. Her wounds are complicated by diabetes mellitus type 2 with peripheral polyneuropathy, Charcot joint deformity of the right foot, hypothyroidism. Following surgical debridement and recovery in the hospital she was on IV antibiotics vancomycin. Infectious disease discontinued her vancomycin and placed her on daptomycin. She was discharged to a snf facility where they have been continuing daily dressing changes wet-to-dry Dakin's. Patient and daughter were unhappy with the nursing facility and changed to a different snf facility where they were much happier with her care. She has since been discharged from the nursing facility to her home on 07/11/2021. She has been compliant with her nonweightbearing status to her right lower extremity. She is accompanied by her mother today to the wound care center for follow-up of her wounds to her right lower extremity. She has undergone tube placement for her ears and is continuing her HBO dives. The right anterior lower extremity wound is continuing to progress closing at the most proximal and most distal portions with new skin coverage. TheraSkin graft is taking well to the wound bed and wound margins. Her wounds demonstrate no localized signs of infection. The surrounding skin is intact and atrophic. Right lateral foot wound is healed. The medial right foot wound is healed with a stable cicatrix. TheraSkin graft applied to the right anterior lower extremity wound. Site was dressed with wound veil and anchored with Steri-Strips. Given her healing progress we will discontinue her wound VAC at this time. We will continue with Unna boot to the right lower extremity. She is instructed to leave dressings clean, dry, and intact. Her right lower extremity anterior wound is a Gonzalez grade 3 at her right lateral foot wound is a Gonzalez grade 3, right medial foot wound Gonzalez grade 3. She underwent a surgical debridement of all 3 of these Gonzalez grade 3 wounds to the right lower extremity on 05/23/2021 to drain a deep abscess and debride necrotic tissue and tendon. She underwent a second debridement procedure on 05/28/2021 to drain deep anterior compartment abscess of the right lower extremity. She had undergone and completed 8 weeks of IV vancomycin and her PICC line was pulled on 07/09/2021. There is no localized signs of infection to any of the right foot wounds. Grafting product is applied to the right anterior wound. She continues to make good progress in her healing status. She is very pleased with her treatment progress. I discussed with her to continue to ensure proper diabetic glycemic control and intake of protein to ensure wound healing and graft take. I reviewed and discussed her case today. Debridement was performed today as noted in the clinical panel to all of the ulcer sites. The following work up and care recommendations were made: Dressing: Leave TheraSkin graft in place with wound veil covering and Unna boot Wash: Do not wash Tissue growth optimization: TheraSkin skin substitute right anterior leg wound Offload: Nonweightbearing right lower extremity with elevation via soft pillows Vascular: Edema: Unna boot will aid in edema control along with elevation of lower extremity Infection: No localized signs of infection Pain: Continue with Motrin and Tylenol extra strength at home Host factors: History of MRSA and Enterococcus infection. Diabetes type 2 with peripheral polyneuropathy, discussed proper glycemic control and intake of protein to ensure wound healing. I answered all the patient's questions. To return to the wound healing center in 1 week or call sooner if the patient has any questions or concerns. Note: [employer] speech recognition key punch teacher software was used to create portions of this document. Sound-alike and misspelled words, as well as other key punch teacher errors may be contained in the documentation.
--- NOTE | 2021-09-11 13:41 | WC ---
2 pieces of Therskin were used today on the wound. The sencond one was Exp. Date of 11/26/24 and ID: [id number]
[2021-09-12 10:00] LABS: Bedside Glucose 156 mg/dL (74-106)
[2021-09-12 11:23] VITALS: BP 109/65; BP 118/64; PULSE 86; PULSE 94; RESP 15; RESP 16; TEMP 36.2
[2021-09-12 12:10] LABS: Bedside Glucose 87 mg/dL (74-106)
--- NOTE | 2021-09-12 16:09 | HBO.PN.PCM_ITS ---
History of Present Illness Date of Service: 09/12/21 Chief Complaint: right foot ulcer and Right Leg wound History of Wound: This 55-year-old female presents for care of right foot wound. She had surgery at [facility] in November 2020. She denies current fever, chill, nausea, vomiting. She denies delays in wound care and has been applying saline wet-to-dry to help with home health. She relates her bone biopsy that was obtained during her foot surgery was negative for osteomyelitis. She has a PICC placed and saw infectious disease specialist, Dr. Paez at [facility]. She relates she is almost complete with her IV antibiotic course. She is offloading with a surgical shoe. She takes nutritional supplementation including vitamin D and B. She denies claudication. She does have rest paresthesias. She is diabetic with an A1c of over 8%. She also has history of back injuries. Since her last visit, she reports she had thick fluid squirting out of the wound with application of her silver dressing. She was concerned it was infected and called in yesterday. She is advised by nursing staff to go to the emergency room if she thought she had a rapid onset infection. She relates she is scheduled to see her surgeon tomorrow. She did not obtain the previously ordered labs and foot x-rays. She denies current redness or odor. Medical records reviewed from and it is noted she had right foot incision and drainage of fifth metatarsal on 12-04-20. Her surgeon was Dr. Blanchard. She is advised wearing AFO brace. It is noted she started on Bactrim and then after the surgery she was placed on IV antibiotics. She later developed an infection of her right foot ulceration and underwent I&D with wide debridement on 05-23-21 and 05-28-[address] Alexandre and Dr. Gonzalez. Cultures were positive for MRSA and Enterococcus and was placed on IV Vancomycin by infectious disease. She was discharged to a snf facility with instructions for wound vac application to right anterior leg and lateral right foot and wet to dry Dakin's dressings to the right foot. Allergies: Clindamycin Medications cyclo-Benzapril, NuvaRing, Advil, Cytomel, [place], armodafinil, Singulair, Synthroid, Lyrica Past medical history: diabetes and history of back surgery, ankle surgery, right knee arthroscopy Social history: former smoker and no current tobacco use; quit in 1981 Subjective Subjective Patient presents today for hyperbaric oxygen therapy treatment. Today's session represents the 13th such session of a planned 30 sessions. Hyperbaric oxygen therapy was administered as per the facility's protocol. Hyperbaric oxygen therapy was administered at 2 forrest for 90 minutes with no air breaks. Patient tolerated hyperbaric oxygen therapy well, without complaints or complications. Upon emergence from the hyperbaric chamber, the patient's vital signs remained stable. Blood glucose measurements were obtained both prior to and following hyperbaric oxygen therapy, and are recorded elsewhere. The patient was discharged in good condition. Objective Data Objective Data Vital Signs: Vital Signs Temp Pulse Resp BP 97.1 F L 94 15 118/64 09/12/21 11:23 09/12/21 11:23 09/12/21 11:23 09/12/21 11:23 Weight: 80.286 kg Body Mass Index (BMI) 26.9 Lab / Micro Data Labs: Laboratory Results - last 24 hr 09/12/21 09:58: POC Glucose 156 H 09/12/21 12:04: POC Glucose 87 Exam Physical Exam Const alert, oriented x3 and no apparent distress Psych mental status grossly normal, thought process normal, cooperative, affect normal and speech normal Nursing Assessment and Debridement Post-Debridement Measurements and Additional Note: Post-Debridement Measurements/Treatment WC - Nurse 1 - General Ulcer Assessment Start: 08/25/21 13:09 Freq: Status: Active Protocol: WC.LOWEXT Activity Type Activity Date Activity User E-Sign Co-Sign Detail Recorded Client Recorded Date Recorded By Document 09/11/21 11:25 LAYLA [id number] 09/11/21 11:28 LAYLA 09/11/21 11:25 - Today's Visit Information Type of service Follow-up Visit (Physician/EARLY CHILDHOOD SERVICES COORDINATOR ) Arrival Mode Wheelchair Patient Identification Verified (Name & Yes ) Height and Weight Body Mass Index (BMI) 26.9 BMI Classification Overweight Vital Signs Temperature (97.8 F-99.1 F) 98.0 F Temperature Source Temporal Pulse Rate (60-100) 114 H Pulse Location Monitor Blood Pressure (90/60-120/80) 130/68 H Blood Pressure Mean (mm Hg) 88 Source Monitor Position Sitting Blood Pressure Location Left Arm History Since Last Visit- (Skip if this is Patient's initial visit) Have you changed medications since your No last visit? Any new allergies or adverse reactions No Had a fall/change in ADL's that may No increase risk of falls Signs or symptoms of abuse and/or No neglect since last visit Have you been in the hospital since your No last visit? Has dressing in place as prescribed Yes Has compression in place as prescribed Yes Has offloadiing in place as prescribed N/A Experienced any changes in pain level or No management Pain Scale: 0-10 Numeric Is Patient Pain Free? Yes - Nurse 1 - General Ulcer Measurement Start: 08/25/21 13:09 Freq: Status: Active Protocol: Activity Type Activity Date Activity User E-Sign Co-Sign Detail Recorded Client Recorded Date Recorded By Document 09/11/21 11:25 LAYLA [id number] 09/11/21 11:28 LAYLA 09/11/21 11:25 Wound Center Nurse 1 #2 R MID LOWER LEG -Current Size (cm) - Length 14.5 -Current Size (cm) - Width 3 -Current Size (cm) - Depth 0.1 -Total Square Cm 43.5 -Exudate Amt Small -Exudate Type Serosanguineous -Wound Margin Distinct, Outline Attached -Granulation Amt Large (67-100%) -Granulation Quality Red -Necrosis Amt None Present (0 %) -Texture (Marie-wound Skin Appearance) Assessed, Scarring -Moisture (Marie-wound Skin Appearance) No Abnormality, Assessed -Temperature (Marie-wound Skin No Abnormality Appearance) (Pt Warm) -Tenderness on Palpation (Marei-wound No Skin Appearance) -Ulcer Cleansing Soap and Water -Anesthetic Used 4% Lidocaine Solution,5% Lidocaine Gel Right Calf (cm) 30.2 Right Ankle (cm) 22 - Nurse 2 - General Ulcer CM Notes Start: 08/25/21 13:09 Freq: Status: Active Protocol: Activity Type Activity Date Activity User E-Sign Co-Sign Detail Recorded Client Recorded Date Recorded By Document 09/11/21 13:34 PL [id number] 09/11/21 13:41 PL 09/11/21 13:34 Wound Center Nurse 2 #4 R LATERAL FOOT -Procedure Performed No -Wound/Ulcer Outcome Healed- Epithelialized #2 R MID LOWER LEG -Time 12:00 -Correct Patient Yes -Correct Side, Site, Position Yes -Correct Procedure Yes -Procedure Performed Yes -Type of Procedure Debridement -Clinical Debridement Subcutaneous -Tissue Removed Subcutaneous -Post Debridement (cm) - Length 14.5 -Post Debridement (cm) - Width 3.0 -Post Debridement (cm) - Depth 0.2 -Total Square (Post) (cm) 43.50 -Area of Debridement (cm) - Length 14.5 -Area of Debridement (cm) - Width 3.0 -Total Square (Area) (cm) 43.50 -Tunneling No -Undermining/Tunneling No -Circular Undermining No -Wound/Ulcer Outcome Not Healed -Ulcer Cleansing Rinsed/ Irrigated with Saline -Foul Odor after Cleansing No -Bioengineered Tissue Yes -Type of Bioengineered Tissue Theraskin -Expiration Date 04/17/25 -Product Lot Number [id number] -Percent Used 100 -Bleeding Controlled with Pressure -Treatment Response Procedure Tolerated Well -Debridement - Subq, 1st 20sq cm No -Apply Skin Sub - 1st 25 sq cm - Legs 1 -Apply Skin Sub - each addt'l 25 sq cm 1 - Legs -Theraskin (per sq cm) 65 Pain Scale: 0-10 Numeric Is Patient Pain Free? Yes WC - Nurse 3 - General Ulcer D/C NN Start: 08/25/21 13:09 Freq: Status: Active Protocol: Activity Type Activity Date Activity User E-Sign Co-Sign Detail Recorded Client Recorded Date Recorded By Document 09/11/21 07:29 PL [id number] 09/12/21 07:29 PL 09/11/21 07:29 Wound Care Nurse 3 Right -Multi-Layered Wrap Application Unna Boot - Right ($) Pain Scale: 0-10 Numeric Is Patient Pain Free? Yes Assessment/Plan Assessment/Plan (1) Non-pressure 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: CODE(S): L97.212 - Non-pressure 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 (2) 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: CODE(S): L97.512 - 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 (3) Chronic ulcer of right foot due to diabetes mellitus: CODE(S): E11.621 - Type 2 diabetes mellitus with foot ulcer; L97.519 - Non-pressure chronic ulcer of other part of right foot with unspecified severity (4) Type 2 diabetes mellitus with diabetic polyneuropathy: CODE(S): E11.42 - Type 2 diabetes mellitus with diabetic polyneuropathy QUALIFIERS: Diabetes mellitus [facility] insulin use: with long t erm use Qualified Code(s): E11.42 - Type 2 diabetes mellitus with diabetic polyneuropathy; Z79.4 - FPC (current) use of insulin (5) Type 2 diabetes mellitus with foot ulcer: CODE(S): E11.621 - Type 2 diabetes mellitus with foot ulcer; L97.509 - Non-pressure chronic ulcer of other part of unspecified foot with unspecified severity QUALIFIERS: Diabetes mellitus [facility] insulin use: 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
[2021-09-15 10:20] LABS: Bedside Glucose 143 mg/dL (74-106)
--- NOTE | 2021-09-15 10:37 | HBO.PN.PCM_ITS ---
History of Present Illness Date of Service: 09/15/21 Chief Complaint: right foot ulcer and Right Leg wound History of Wound: This 55-year-old female presents for care of right foot wound. She had surgery at [facility] in November 2020. She denies current fever, chill, nausea, vomiting. She denies delays in wound care and has been applying saline wet-to-dry to help with home health. She relates her bone biopsy that was obtained during her foot surgery was negative for osteomyelitis. She has a PICC placed and saw infectious disease specialist, Dr. Paez at [facility]. She relates she is almost complete with her IV antibiotic course. She is offloading with a surgical shoe. She takes nutritional supplementation including vitamin D and B. She denies claudication. She does have rest paresthesias. She is diabetic with an A1c of over 8%. She also has history of back injuries. Since her last visit, she reports she had thick fluid squirting out of the wound with application of her silver dressing. She was concerned it was infected and called in yesterday. She is advised by nursing staff to go to the emergency room if she thought she had a rapid onset infection. She relates she is scheduled to see her surgeon tomorrow. She did not obtain the previously ordered labs and foot x-rays. She denies current redness or odor. Medical records reviewed from and it is noted she had right foot incision and drainage of fifth metatarsal on 12-04-20. Her surgeon was Dr. Blanchard. She is advised wearing AFO brace. It is noted she started on Bactrim and then after the surgery she was placed on IV antibiotics. She later developed an infection of her right foot ulceration and underwent I&D with wide debridement on 05-23-21 and 05-28-[address] Alexandre and Dr. Gonzalez. Cultures were positive for MRSA and Enterococcus and was placed on IV Vancomycin by infectious disease. She was discharged to a alf facility with instructions for wound vac application to right anterior leg and lateral right foot and wet to dry Dakin's dressings to the right foot. Allergies: Clindamycin Medications cyclo-Benzapril, NuvaRing, Advil, Cytomel, [place], armodafinil, Singulair, Synthroid, Lyrica Past medical history: diabetes and history of back surgery, ankle surgery, right knee arthroscopy Social history: former smoker and no current tobacco use; quit in 1981 Subjective Subjective This Patient presents today for hyperbaric oxygen therapy treatment. Today's session represents the 14th such session of a planned 30 sessions. Hyperbaric oxygen therapy was administered as per the facility's protocol. Hyperbaric oxygen therapy was administered at 2 forrest for 90 minutes with no air breaks. Patient tolerated hyperbaric oxygen therapy well, without complaints or complications. Upon emergence from the hyperbaric chamber, the patient's vital signs remained stable. Blood glucose measurements were obtained both prior to and following hyperbaric oxygen therapy, and are recorded elsewhere. The joe sanchez was discharged in good condition. Objective Data Objective Data Vital Signs: Vital Signs Temp Pulse Resp BP 97.1 F L 94 15 118/64 09/12/21 11:23 09/12/21 11:23 09/12/21 11:23 09/12/21 11:23 Weight: 177 lb Body Mass Index (BMI) 26.9 Lab / Micro Data Labs: Laboratory Results - last 24 hr 09/15/21 10:15: POC Glucose 143 H Exam Physical Exam Const alert, oriented x3 and no apparent distress General Appearance: cooperative and comfortable HEENT normocephalic, head/scalp atraumatic and TM's normal bilaterally HEENT Narrative: Bilateral eustachian tubes intact Tympanic Membrane: TM's normal bilaterally Resp normal respiratory effort Effort and Inspection: able to speak in complete sentences Psych mental status grossly normal, thought process normal, cooperative and affect normal Assessment/Plan Assessment/Plan (1) Chronic ulcer of right foot due to diabetes mellitus: CODE(S): E11.621 - Type 2 diabetes mellitus with foot ulcer; L97.519 - Non-pressure chronic ulcer of other part of right foot with unspecified severity PLAN: The patient appears to be tolerating hyperbaric oxygen therapy well, which will be continued as per the patient's medical plan. (2) Non-pressure 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: CODE(S): L97.212 - Non-pressure 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 (3) 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: CODE(S): L97.512 - 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 (4) Type 2 diabetes mellitus with diabetic polyneuropathy: CODE(S): E11.42 - Type 2 diabetes mellitus with diabetic polyneuropathy QUALIFIERS: Diabetes mellitus long term care social worker insulin use: with correction use Qualified Code(s): E11.42 - Type 2 diabetes mellitus with diabetic polyneuropathy; Z79.4 - halfway (current) use of insulin (5) Charcot's joint of right foot: CODE(S): M14.671 - Charcot's joint, right ankle and foot (6) Hypothyroidism: CODE(S): E03.9 - Hypothyroidism, unspecified QUALIFIERS: Hypothyroidism type: unspecified Qualified Code(s): E03.9 - Hypothyroidism, unspecified
[2021-09-15 12:17] VITALS: BP 104/64; BP 119/64; PULSE 75; PULSE 95; RESP 16; TEMP 37.2
[2021-09-15 12:35] LABS: Bedside Glucose 116 mg/dL (74-106)
[2021-09-17 11:10] LABS: Bedside Glucose 130 mg/dL (74-106)
--- NOTE | 2021-09-17 12:42 | HBO.PN.PCM_ITS ---
History of Present Illness Date of Service: 09/17/21 Chief Complaint: right foot ulcer and Right Leg wound History of Wound: This 55-year-old female presents for care of right foot wound. She had surgery at [facility] in November 2020. She denies current fever, chill, nausea, vomiting. She denies delays in wound care and has been applying saline wet-to-dry to help with home health. She relates her bone biopsy that was obtained during her foot surgery was negative for osteomyelitis. She has a PICC placed and saw infectious disease specialist, Dr. Paez at [facility]. She relates she is almost complete with her IV antibiotic course. She is offloading with a surgical shoe. She takes nutritional supplementation including vitamin D and B. She denies claudication. She does have rest paresthesias. She is diabetic with an A1c of over 8%. She also has history of back injuries. Since her last visit, she reports she had thick fluid squirting out of the wound with application of her silver dressing. She was concerned it was infected and called in yesterday. She is advised by nursing staff to go to the emergency room if she thought she had a rapid onset infection. She relates she is scheduled to see her surgeon tomorrow. She did not obtain the previously ordered labs and foot x-rays. She denies current redness or odor. Medical records reviewed from and it is noted she had right foot incision and drainage of fifth metatarsal on 12-04-20. Her surgeon was Dr. Blanchard. She is advised wearing AFO brace. It is noted she started on Bactrim and then after the surgery she was placed on IV antibiotics. She later developed an infection of her right foot ulceration and underwent I&D with wide debridement on 05-23-21 and 05-28-[address] Alexandre and Dr[address] Gonzalez. Cultures were positive for MRSA and Enterococcus and was placed on IV Vancomycin by infectious disease. [facility] with [facility] for wound vac application to right anterior leg and lateral right foot and wet to dry Dakin's dressings to the right foot. Allergies: Clindamycin Medications cyclo-Benzapril, NuvaRing, Advil, Cytomel, [place], armodafinil, Singulair, Synthroid, Lyrica Past medical history: diabetes and history of back surgery, ankle surgery, right knee arthroscopy Social history: former smoker and no current tobacco use; quit in 1981 Progress of Wound: Progress: Today is the 16th treatment of hyperbaric oxygen therapy. The patient is scheduled for 30 treatments total. Vital signs stable on admission and discharge patient is tolerating well Subjective Subjective No concerns Objective Data Objective Data Vital signs stable on admission and discharge tolerated treatment well Vital Signs: Vital Signs Temp Pulse Resp BP 98.9 F 95 16 119/64 09/15/21 12:17 09/15/21 12:17 09/15/21 12:17 09/15/21 12:17 Weight: 177 lb Body Mass Index (BMI) 26.9 Lab / Micro Data Labs: Laboratory Results - last 24 hr 09/17/21 10:59: POC Glucose 130 H Assessment/Plan Assessment/Plan (1) Non-pressure 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: CODE(S): L97.212 - Non-pressure 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 (2) 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: CODE(S): L97.512 - 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 (3) Type 2 diabetes mellitus with diabetic polyneuropathy: CODE(S): E11.42 - Type 2 diabetes mellitus with diabetic polyneuropathy QUALIFIERS: Diabetes mellitus residential insulin use: with residential use Qualified Code(s): E11.42 - Type 2 diabetes mellitus with diabetic polyneuropathy; Z79.4 - petroleum terminal plant operator (current) use of 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
[2021-09-17 13:00] LABS: Bedside Glucose 105 mg/dL (74-106)
[2021-09-17 13:00] LABS: Bedside Glucose 114 mg/dL (74-106)
[2021-09-17 13:15] LABS: Bedside Glucose 120 mg/dL (74-106)
[2021-09-17 14:20] VITALS: BP 123/70; BP 127/67; PULSE 70; PULSE 83; RESP 18; TEMP 35.9; TEMP 36.4
[2021-09-18 11:26] VITALS: BP 131/70; PULSE 107; RESP 16; TEMP 36.2; BMI 26.9
--- NOTE | 2021-09-18 12:04 | PCM.WC.PN ---
History of Present Illness Date of Service: 09/18/21 Chief Complaint: right foot ulcer and Right Leg wound History of Wound: This 55-year-old female presents for care of right foot wound. She had surgery at [facility] in November 2020. She denies current fever, chill, nausea, vomiting. She denies delays in wound care and has been applying saline wet-to-dry to help with home health. She relates her bone biopsy that was obtained during her foot surgery was negative for osteomyelitis. She has a PICC placed and saw infectious disease specialist, Dr. Paez at [facility]. She relates she is almost complete with her IV antibiotic course. She is offloading with a surgical shoe. She takes nutritional supplementation including vitamin D and B. She denies claudication. She does have rest paresthesias. She is diabetic with an A1c of over 8%. She also has history of back injuries. Since her last visit, she reports she had thick fluid squirting out of the wound with application of her silver dressing. She was concerned it was infected and called in yesterday. She is advised by nursing staff to go to the emergency room if she thought she had a rapid onset infection. She relates she is scheduled to see her surgeon tomorrow. She did not obtain the previously ordered labs and foot x-rays. She denies current redness or odor. Medical records reviewed from and it is noted she had right foot incision and drainage of fifth metatarsal on 12-04-20. Her surgeon was Dr. Blanchard. She is advised wearing AFO brace. It is noted she started on Bactrim and then after the surgery she was placed on IV antibiotics. She later developed an infection of her right foot ulceration and underwent I&D with wide debridement on 05-23-21 and 05-28-[address] Alexandre and Dr. Gonzalez. Cultures were positive for MRSA and Enterococcus and was placed on IV Vancomycin by infectious disease. She was discharged to a fdc facility with instructions for wound vac application to right anterior leg and lateral right foot and wet to dry Dakin's dressings to the right foot. Allergies: Clindamycin Medications cyclo-Benzapril, NuvaRing, Advil, Cytomel, Miranda, armodafinil, Singulair, Synthroid, Lyrica Past medical history: diabetes and history of back surgery, ankle surgery, right knee arthroscopy Social history: former smoker and no current tobacco use; quit in 1981 Progress of Wound: Progress: Today is the 16th treatment of hyperbaric oxygen therapy. The patient is scheduled for 30 treatments total. Vital signs stable on admission and discharge patient is tolerating well Subjective Subjective This is a 55-year-old female who presents to the wound care center for follow-up of her right anterior lower extremity wound and a right lateral foot wound. She continues to deny any constitutional symptoms. She continues to deny any pain to the site. She states her hyperbaric dives are going well. She states she is taking medication for her syncope episodes secondary to her hyperbaric dives, which is helping. He has no other complaints today. She was able to enjoy sitting on her back porch during the warm weather last weekend. Objective Data Objective Data Vital Signs: Vital Signs Temp Pulse Resp BP 97.1 F L 107 H 16 131/70 H 09/18/21 11:26 09/18/21 11:26 09/18/21 11:26 09/18/21 11:26 Weight: 80.286 kg Body Mass Index (BMI) 26.9 Lab / Micro Data Labs: Laboratory Results - last 24 hr 09/17/21 10:27: POC Glucose 114 H 09/17/21 10:36: POC Glucose 105 09/17/21 13:04: POC Glucose 120 H Physical Exam Const alert, oriented x3 and no apparent distress General Appearance: cooperative and comfortable HEENT normocephalic Eyes General Eye: normal appearance of both eyes Neck General: normal visual inspection Lymph Lymphatic: no lymphadenopathy noted and no lymphedema noted Resp normal respiratory effort Cardio regular rate and regular rhythm Extremity normal capillary refill and no calf tenderness Skin Skin Narrative: Ulceration site to the right anterior lower extremity and right lateral foot. Medial cicatrix noted. Surrounding skin is intact soft, supple, and atrophic. She is demonstrating rash secondary to wound VAC dressing on the medial aspect of the leg. Wound Narrative: All wounds are secondary to previous surgical debridement for an abscess of the foot and anterior compartment of the lower extremity. Lateral foot ulceration right foot is healed Medial right foot wound is healed with a stable cicatrix noted and no localized signs of infection. Right lower extremity anterior leg wound is granulating in well and demonstrates no exposed tendon with a good goose pimple granular layer. Ulcerative site is closing proximally and distally. There are skin islands between patches of granular tissue at the proximal aspect. Ulcerative sites demonstrate no localized signs of infection. Neuro oriented x3 and moves all extremities Debridement Note Debridement Note Wound debrided: Right anterior lower extremity Laterality: Right Wound Grade/Stage: Gonzalez stage III Type of Debridement: Excisional debridement Anesthesia Used: 4% Lidocaine Solution Depth: Down to and including healthy tissue and in the subcutaneous layer Percentage of wound debrided: 100 Instrument Used: #15 blade Tissue Removed: Fibrous, devitalized subcutaneous, biofilm, slough Severity: Fat Layer Exposed Amount of bleeding with debridement: Mild Bleeding Controlled with: Compression and gauze Patient tolerated procedure: Patient tolerated procedure well Post-Debridement Measurements and Additional Note: Post-Debridement Measurements/Treatment - Nurse 1 - General Ulcer Assessment Start: 08/25/21 13:09 Freq: Status: Active Protocol: ALISSA.NICKEXT Activity Type Activity Date Activity User E-Sign Co-Sign Detail Recorded Client Recorded Date Recorded By Document 08/28/21 11:03 KR [id number] 08/28/21 11:07 KR Document 09/04/21 11:44 ML [id number] 09/04/21 11:47 ML Document 09/11/21 11:25 KR [id number] 09/11/21 11:28 KR Document 09/18/21 11:26 JF [id number] 09/18/21 11:28 JF 08/28/21 09/04/21 09/11/21 11:03 11:44 11:25 - Today's Visit Information Type of service Follow-up Visit Follow-up Visit Follow-up Visit (Physician/MANAGER NIGHT (Physician/MANAGER NIGHT (Physician/MANAGER NIGHT ) ) ) Arrival Mode Wheelchair Wheelchair Wheelchair Transfer Assistance None Accompanied by mom Patient Identification Verified (Name & Yes Yes Yes ) Patient Requires Transmission-Based No Precautions Safety Precautions NA Height and Weight Body Mass Index (BMI) 26.9 26.9 26.9 BMI Classification Overweight Overweight Overweight Vital Signs Temperature (97.8 F-99.1 F) 96.9 F L 96.6 F L 98.0 F Temperature Source Temporal Temporal Temporal Pulse Rate (60-100) 68 94 114 H Pulse Location Monitor Monitor Monitor Respiratory Rate (12-18) 16 Respiratory rate source Observation Blood Pressure (90/60-120/80) 128/76 H 143/80 H 130/68 H Blood Pressure Mean (mm Hg) 93 101 88 Source Monitor Monitor Monitor Position Sitting Sitting Sitting Blood Pressure Location Left Arm Left Arm Left Arm History Since Last Visit- (Skip if this is Patient's initial visit) Have you changed medications since your No No No last visit? Any new allergies or adverse reactions No No No Had a fall/change in ADL's that may No No No increase risk of falls Signs or symptoms of abuse and/or No No No neglect since last visit Have you been in the hospital since your No No No last visit? Has dressing in place as prescribed Yes Yes Yes Has compression in place as prescribed N/A Yes Yes Has offloadiing in place as prescribed N/A Yes N/A Experienced any changes in pain level or No No No management Left Footwear No Footwear Right Footwear No Footwear Pain Scale: 0-10 Numeric Is Patient Pain Free? Yes Yes Yes 09/18/21 11:26 WC - Today's Visit Information Type of service Follow-up Visit (Physician/MANAGER NIGHT ) Arrival Mode Wheelchair Transfer Assistance Accompanied by Patient Identification Verified (Name & Yes ) Patient Requires Transmission-Based No Precautions Safety Precautions Height and Weight Body Mass Index (BMI) 26.9 BMI Classification Overweight Vital Signs Temperature (97.8 F-99.1 F) 97.1 F L Temperature Source Temporal Pulse Rate (60-100) 107 H Pulse Location Monitor Respiratory Rate (12-18) 16 Respiratory rate source Observation Blood Pressure (90/60-120/80) 131/70 H Blood Pressure Mean (mm Hg) 90 Source Monitor Position Semi-Fowlers Blood Pressure Location Left Arm History Since Last Visit- (Skip if this is Patient's initial visit) Have you changed medications since your No last visit? Any new allergies or adverse reactions No Had a fall/change in ADL's that may No increase risk of falls Signs or symptoms of abuse and/or No neglect since last visit Have you been in the hospital since your No last visit? Has dressing in place as prescribed Yes Has compression in place as prescribed Yes Has offloadiing in place as prescribed N/A Experienced any changes in pain level or No management Left Footwear Regular Shoe Right Footwear No Footwear Pain Scale: 0-10 Numeric Is Patient Pain Free? Yes - Nurse 1 - General Ulcer Measurement Start: 08/25/21 13:09 Freq: Status: Active Protocol: Activity Type Activity Date Activity User E-Sign Co-Sign Detail Recorded Client Recorded Date Recorded By Document 08/28/21 11:03 KR [id number] 08/28/21 11:07 KR Document 09/04/21 11:44 ML [id number] 09/04/21 11:47 ML Document 09/11/21 11:25 KR [id number] 09/11/21 11:28 KR Document 09/18/21 11:26 JF [id number] 09/18/21 11:28 JF 08/28/21 09/04/21 09/11/21 11:03 11:44 11:25 Wound Center Nurse 1 #4 R LATERAL FOOT -Current Size (cm) - Length 1.6 0.5 -Current Size (cm) - Width 0.5 1 -Current Size (cm) - Depth 0.1 0.1 -Total Square Cm 0.80 0.5 -Exudate Amt Large Medium -Exudate Type Serosanguineous Serosanguineous -Wound Margin Distinct, Distinct, Outline Outline Attached Attached -Granulation Amt Large (67-100%) Medium (34-66%) -Granulation Quality Hyper- granulation,Red -Slough/Fibrin Yes -Necrosis Amt Medium (34-66%) -Necrotic Tissue Type Adherent Slough -Texture (Marie-wound Skin Appearance) Assessed, Assessed Scarring -Moisture (Marie-wound Skin Appearance) No Abnormality, Assessed Assessed, Maceration -Color (Marie-wound Skin Appearance) No Abnormality, Assessed Assessed -Temperature (Marie-wound Skin No Abnormality Appearance) (Pt Warm) -Tenderness on Palpation (Marie-wound Yes Skin Appearance) -Ulcer Cleansing Soap and Water Soap and Water -Foul Odor after Cleansing Yes No -Anesthetic Used 4% Lidocaine 4% Lidocaine Solution Solution #2 R MID LOWER LEG -Combined with other wound -Current Size (cm) - Length 24.9 16 14.5 -Current Size (cm) - Width 3.6 3 3 -Current Size (cm) - Depth 0.1 0.1 0.1 -Total Square Cm 89.64 48 43.5 -Photo Taken -Epithelialization -Tunneling -Undermining/Tunneling -Circular Undermining -Exudate Amt Large Medium Small -Exudate Type Serosanguineous Serosanguineous Serosanguineous -Wound Margin Distinct, Distinct, Distinct, Outline Outline Outline Attached Attached Attached -Granulation Amt Large (67-100%) Medium (34-66%) Large (67-100%) -Granulation Quality Red Red -Slough/Fibrin Yes -Necrosis Amt Medium (34-66%) None Present (0 %) -Necrotic Tissue Type Adherent Slough -Structure Exposed -Texture (Marie-wound Skin Appearance) Assessed, Assessed Assessed, Scarring Scarring -Moisture (Marie-wound Skin Appearance) No Abnormality, Assessed No Abnormality, Assessed Assessed -Color (Marie-wound Skin Appearance) No Abnormality, Assessed Assessed -Temperature (Marie-wound Skin No Abnormality No Abnormality No Abnormality Appearance) (Pt Warm) (Pt Warm) (Pt Warm) -Tenderness on Palpation (Marie-wound Yes No No Skin Appearance) -Ulcer Cleansing Soap and Water Soap and Water Soap and Water -Foul Odor after Cleansing No No -Anesthetic Used 4% Lidocaine 4% Lidocaine 4% Lidocaine Solution Solution Solution,5% Lidocaine Gel Lower Limb Edema Present Right Calf (cm) 30.2 Right Ankle (cm) 09/18/21 11:26 Wound Center Nurse 1 #4 R LATERAL FOOT -Current Size (cm) - Length -Current Size (cm) - Width -Current Size (cm) - Depth -Total Square Cm -Exudate Amt -Exudate Type -Wound Margin -Granulation Amt -Granulation Quality -Slough/Fibrin -Necrosis Amt -Necrotic Tissue Type -Texture (Marie-wound Skin Appearance) -Moisture (Marie-wound Skin Appearance) -Color (Marie-wound Skin Appearance) -Temperature (Marie-wound Skin Appearance) -Tenderness on Palpation (Marie-wound Skin Appearance) -Ulcer Cleansing -Foul Odor after Cleansing -Anesthetic Used #2 R MID LOWER LEG -Combined with other wound No -Current Size (cm) - Length 13.7 -Current Size (cm) - Width 2.6 -Current Size (cm) - Depth 0.2 -Total Square Cm 35.62 -Photo Taken No -Epithelialization Medium 34-66% -Tunneling No -Undermining/Tunneling No -Circular Undermining No -Exudate Amt Medium -Exudate Type Serosanguineous -Wound Margin Flat & Intact -Granulation Amt Large (67-100%) -Granulation Quality Red -Slough/Fibrin Yes -Necrosis Amt Small (1-33%) -Necrotic Tissue Type Adherent Slough -Structure Exposed N/A -Texture (Marie-wound Skin Appearance) Assessed, Localized Edema -Moisture (Marie-wound Skin Appearance) Assessed,Dry/ Scaly -Color (Marie-wound Skin Appearance) Assessed -Temperature (Marie-wound Skin No Abnormality Appearance) (Pt Warm) -Tenderness on Palpation (Marie-wound No Skin Appearance) -Ulcer Cleansing Wound Cleanser -Foul Odor after Cleansing No -Anesthetic Used 4% Lidocaine Solution Lower Limb Edema Present Yes Right Calf (cm) 30.8 Right Ankle (cm) 21.0 WC - Nurse 2 - General Ulcer CM Notes Start: 08/25/21 13:09 Freq: Status: Active Protocol: Activity Type Activity Date Activity User E-Sign Co-Sign Detail Recorded Client Recorded Date Recorded By Document 08/28/21 12:23 PL [id number] 08/28/21 12:29 PL Document 09/04/21 14:42 PL [id number] 09/04/21 14:47 PL Edit Result 09/04/21 14:42 PL (1) [id number] 09/04/21 14:52 PL Document 09/11/21 13:34 PL [id number] 09/11/21 13:41 PL (1) #2 R MID LOWER LEG - Apply Skin Sub - 1st 25 sq cm - Legs => 1 08/28/21 09/04/21 09/11/21 12:23 14:42 13:34 Wound Center Nurse 2 #4 R LATERAL FOOT -Time 11:17 12:04 -Correct Patient Yes Yes -Correct Side, Site, Position Yes Yes -Correct Procedure Yes Yes -Procedure Performed Yes Yes No -Type of Procedure Debridement Debridement -Clinical Debridement Subcutaneous Subcutaneous -Tissue Removed Subcutaneous Subcutaneous -Post Debridement (cm) - Length 1.6 0.5 -Post Debridement (cm) - Width 0.5 1.0 -Post Debridement (cm) - Depth 0.1 0.1 -Total Square (Post) (cm) 0.80 0.50 -Area of Debridement (cm) - Length 1.6 0.5 -Area of Debridement (cm) - Width 0.5 1.0 -Total Square (Area) (cm) 0.80 0.50 -Tunneling No No -Undermining/Tunneling No No -Circular Undermining No No -Wound/Ulcer Outcome Not Healed Not Healed Healed- Epithelialized -Ulcer Cleansing Rinsed/ Rinsed/ Irrigated with Irrigated with Saline Saline -Foul Odor after Cleansing No No -Bioengineered Tissue Yes No -Type of Bioengineered Tissue Theraskin -Expiration Date 08/03/24 -Product Lot Number [id number] -Percent Used 100 -Bleeding Controlled with Pressure Pressure -Treatment Response Procedure Procedure Tolerated Well Tolerated Well -Debridement - Subq, 1st 20sq cm No No -Apply Skin Sub - 1st 25 sq cm - Feet 1 -Theraskin (per sq cm) 13 #2 R MID LOWER LEG -Time 11:17 12:04 12:00 -Correct Patient Yes Yes Yes -Correct Side, Site, Position Yes Yes Yes -Correct Procedure Yes Yes Yes -Procedure Performed Yes Yes Yes -Type of Procedure Debridement Debridement Debridement -Clinical Debridement Subcutaneous Subcutaneous Subcutaneous -Tissue Removed Subcutaneous Subcutaneous Subcutaneous -Post Debridement (cm) - Length 24.9 16.0 14.5 -Post Debridement (cm) - Width 3.6 3.0 3.0 -Post Debridement (cm) - Depth 0.1 0.1 0.2 -Total Square (Post) (cm) 89.64 48.00 43.50 -Area of Debridement (cm) - Length 24.9 16.0 14.5 -Area of Debridement (cm) - Width 3.6 3.0 3.0 -Total Square (Area) (cm) 89.64 48.00 43.50 -Tunneling No No No -Undermining/Tunneling No No No -Circular Undermining No No No -Wound/Ulcer Outcome Not Healed Not Healed Not Healed -Ulcer Cleansing Rinsed/ Rinsed/ Rinsed/ Irrigated with Irrigated with Irrigated with Saline Saline Saline -Foul Odor after Cleansing No No No -Bioengineered Tissue Yes Yes Yes -Type of Bioengineered Tissue Theraskin Theraskin Theraskin -Expiration Date 08/15/25 08/14/25 04/17/25 -Product Lot Number [id number] -Percent Used 100 100 100 -Bleeding Controlled with Pressure Pressure Pressure -Treatment Response Procedure Procedure Procedure Tolerated Well Tolerated Well Tolerated Well -Debridement - Subq, 1st 20sq cm No No No -Apply Skin Sub - 1st 25 sq cm - Legs 1 1 1 -Apply Skin Sub - each addt'l 25 sq cm 1 - Legs -Theraskin (per sq cm) 116 116 65 Pain Scale: 0-10 Numeric Is Patient Pain Free? Yes Yes Yes - Nurse 3 - General Ulcer D/C NN Start: 08/25/21 13:09 Freq: Status: Active Protocol: Activity Type Activity Date Activity User E-Sign Co-Sign Detail Recorded Client Recorded Date Recorded By Document 08/28/21 11:45 KR [id number] 08/28/21 11:53 KR Edit Result 08/28/21 11:45 KR (1) [id number] 08/29/21 06:52 PL Document 09/04/21 12:49 AK [id number] 09/04/21 12:50 AK Document 09/11/21 07:29 PL [id number] 09/12/21 07:29 PL (1) Right - Multi-Layered Wrap Application => Unna Boot - Right => ($) - Compression Wrap Unna Boot ($) ( => single) => 08/28/21 09/04/21 09/11/21 11:45 12:49 07:29 Wound Care Nurse 3 #4 R LATERAL FOOT -Ulcer Cleansing Rinsed/ Irrigated with Saline -Foul Odor after Cleansing No -Negative Pressure Wound Therapy N/A -Primary Dressing Applied Optilok 8x12 -Primary Dressing Covered/Secured with Dry Gauze, Secured with Tape -Optilok 8x12 1 #2 R MID LOWER LEG -Primary Dressing Covered/Secured with Dry Gauze, Secured with Tape Right -Lotion applied to leg before No compression wrap -Multi-Layered Wrap Application Unna Boot - Unna Boot - Unna Boot - Right ($) Right ($) Right ($) Pain Scale: 0-10 Numeric Is Patient Pain Free? Yes Yes Yes WC - Visit Discharge Discharge Condition Stable Stable Ambulatory Status Ambulatory Wheelchair Transportation Private Auto Private Auto Accompanied by mom Medication Reconcilliation completed & Yes provided to patient/care provider Clinical Summary of Care Provided Yes Assessment/Plan Assessment/Plan (1) Chronic ulcer of right foot due to diabetes mellitus: CODE(S): E11.621 - Type 2 diabetes mellitus with foot ulcer; L97.519 - Non-pressure chronic ulcer of other part of right foot with unspecified severity (2) Non-pressure 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: CODE(S): L97.212 - Non-pressure 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 (3) 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: CODE(S): L97.512 - 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 (4) Type 2 diabetes mellitus with diabetic polyneuropathy: CODE(S): E11.42 - Type 2 diabetes mellitus with diabetic polyneuropathy QUALIFIERS: Diabetes mellitus detention insulin use: with detention use Qualified Code(s): E11.42 - Type 2 diabetes mellitus with diabetic polyneuropathy; 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 (5) Type 2 diabetes mellitus with foot ulcer: CODE(S): E11.621 - Type 2 diabetes mellitus with foot ulcer; L97.509 - Non-pressure chronic ulcer of other part of unspecified foot with unspecified severity QUALIFIERS: 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: with detention use Qualified Code(s): E11.621 - Type 2 diabetes mellitus with foot ulcer; L97.509 - Non-pressure chronic ulcer of other part of unspecified foot with unspecified severity; Z79.4 - care home (current) use of insulin (6) Charcot's joint of right foot: CODE(S): M14.671 - Charcot's joint, right ankle and foot (7) Hypothyroidism: CODE(S): E03.9 - Hypothyroidism, unspecified QUALIFIERS: Hypothyroidism type: unspecified Qualified Code(s): E03.9 - Hypothyroidism, unspecified PLAN: This is a 55-year-old female with history of wide I&D and deep debridement of the right foot and ankle from 05/23/2021 and 05/28/[address] Alexand[address] and Dr. Gonzalez, podiatric specialist. She has history of MRSA infection. Her wounds are complicated by diabetes mellitus type 2 with peripheral polyneuropathy, Charcot joint deformity of the right foot, hypothyroidism. Following surgical debridement and recovery in the hospital she was on IV antibiotics vancomycin. Infectious disease discontinued her vancomycin and placed her on daptomycin. She was discharged to a fdc facility where they have been continuing daily dressing changes wet-to-dry Dakin's. Patient and daughter were unhappy with the nursing facility and changed to a different fdc facility where they were much happier with her care. She has since been discharged from the nursing facility to her home on 07/11/2021. She has been compliant with her nonweightbearing status to her right lower extremity. She is accompanied by her mother today to the wound care center for follow-up of her wounds to her right lower extremity. She has undergone tube placement for her ears and is continuing her HBO dives, these are going well. The right anterior lower extremity wound is continuing to progress closing at the most proximal and most distal portions with continued new skin coverage. TheraSkin graft is taking well to the wound bed and wound margins. Her wounds demonstrate no localized signs of infection. The surrounding skin is intact and atrophic. This wound is continuing with good progression towards full closure. Right lateral foot wound is healed. The medial right foot wound is healed with a stable cicatrix. TheraSkin graft #7 applied to the right anterior lower extremity wound. Site was dressed with wound veil and anchored with Steri-Strips. We will continue with Unna boot to the right lower extremity. She is instructed to leave dressings clean, dry, and intact. Her right lower extremity anterior wound is a Gonzalez grade 3 at her right lateral foot wound is a Gonzalez grade 3, right medial foot wound Gonzalez grade 3. She underwent a surgical debridement of all 3 of these Gonzalez grade 3 wounds to the right lower extremity on 05/23/2021 to drain a deep abscess and debride necrotic tissue and tendon. She underwent a second debridement procedure on 05/28/2021 to drain deep anterior compartment abscess of the right lower extremity. She had undergone and completed 8 weeks of IV vancomycin and her PICC line was pulled on 07/09/2021. There is no localized signs of infection to any of the right foot wounds. Grafting product is applied to the right anterior wound. She continues to make good progress in her healing status. She is very pleased with her treatment progress. I discussed with her to continue to ensure proper diabetic glycemic control and intake of protein to ensure wound healing and graft take. I reviewed and discussed her case today. Debridement was performed today as noted in the clinical panel to all of the ulcer sites. The following work up and care recommendations were made: Dressing: Leave TheraSkin graft in place with wound veil covering and Unna boot Wash: Do not wash Tissue growth optimization: TheraSkin skin substitute right anterior leg wound Offload: Nonweightbearing right lower extremity with elevation via soft pillows Vascular: Edema: Unna boot will aid in edema control along with elevation of lower extremity Infection: No localized signs of infection Pain: Continue with Motrin and Tylenol extra strength at home Host factors: History of MRSA and Enterococcus infection. Diabetes type 2 with peripheral polyneuropathy, discussed proper glycemic control and intake of protein to ensure wound healing. I answered all the patient's questions. To return to the wound healing center in 1 week or call sooner if the patient has any questions or concerns. Note: [employer]GAME speech recognition line person software was used to create portions of this document. Sound-alike and misspelled words, as well as other line person errors may be contained in the documentation.
[2021-09-19 10:30] LABS: Bedside Glucose 138 mg/dL (74-106)
[2021-09-19 12:35] LABS: Bedside Glucose 134 mg/dL (74-106)
[2021-09-19 13:14] VITALS: BP 109/59; BP 110/71; PULSE 103; PULSE 93; RESP 17; TEMP 36.4
--- NOTE | 2021-09-19 17:29 | HBO.PN.PCM_ITS ---
History of Present Illness Date of Service: 09/19/21 Chief Complaint: right foot ulcer and Right Leg wound History of Wound: This 55-year-old female presents for care of right foot wound. She had surgery at [facility] in November 2020. She denies current fever, chill, nausea, vomiting. She denies delays in wound care and has been applying saline wet-to-dry to help with home health. She relates her bone biopsy that was obtained during her foot surgery was negative for osteomyelitis. She has a PICC placed and saw infectious disease specialist, Dr. Paez at [facility]. She relates she is almost complete with her IV antibiotic course. She is offloading with a surgical shoe. She takes nutritional supplementation including vitamin D and B. She denies claudication. She does have rest paresthesias. She is diabetic with an A1c of over 8%. She also has history of back injuries. Since her last visit, she reports she had thick fluid squirting out of the wound with application of her silver dressing. She was concerned it was infected and called in yesterday. She is advised by nursing staff to go to the emergency room if she thought she had a rapid onset infection. She relates she is scheduled to see her surgeon tomorrow. She did not obtain the previously ordered labs and foot x-rays. She denies current redness or odor. Medical records reviewed from and it is noted she had right foot incision and drainage of fifth metatarsal on 12-04-20. Her surgeon was Dr. Blanchard. She is advised wearing AFO brace. It is noted she started on Bactrim and then after the surgery she was placed on IV antibiotics. She later developed an infection of her right foot ulceration and underwent I&D with wide debridement on 05-23-21 and 05-28-[address] Alexandre and Dr. Gonzalez. Cultures were positive for MRSA and Enterococcus and was placed on IV Vancomycin by infectious disease. She was discharged to a [facility] facility with instructions for wound vac application to right anterior leg and lateral right foot and wet to dry Dakin's dressings to the right foot. Allergies: Clindamycin Medications cyclo-Benzapril, NuvaRing, Advil, Cytomel, [place], armodafinil, Singulair, Synthroid, Lyrica Past medical history: diabetes and history of back surgery, ankle surgery, right knee arthroscopy Social history: former smoker and no current tobacco use; quit in 1981 Progress of Wound: Progress: Today is the 16th treatment of hyperbaric oxygen therapy. The patient is scheduled for 30 treatments total. Tolerance of hyperbaric oxygen therapy: Hyperbaric oxygen treatment was provided as per the facility's protocol at 2.0 KELLY in 100% oxygen for 90 minutes without air breaks. The patient tolerated hyperbaric oxygen well, without complications or complaints. Upon emergence of the hyperbaric chamber, the patient's vital signs remained stable. Objective Data Objective Data Vital Signs: Vital Signs Temp Pulse Resp BP 97.6 F L 103 H 17 109/59 L 09/19/21 13:14 09/19/21 13:14 09/19/21 13:14 09/19/21 13:14 Weight: 80.286 kg Body Mass Index (BMI) 26.9 Lab / Micro Data Labs: Laboratory Results - last 24 hr 09/19/21 10:28: POC Glucose 138 H 09/19/21 12:29: POC Glucose 134 H Exam Physical Exam Const alert, oriented x3 and no apparent distress Psych mental status grossly normal, thought process normal, cooperative, affect normal and speech normal Nursing Assessment and Debridement Post-Debridement Measurements and Additional Note: Post-Debridement Measurements/Treatment - Nurse 1 - General Ulcer Assessment Start: 08/25/21 13:09 Freq: Status: Active Protocol: [email or web address] Activity Type Activity Date Activity User E-Sign Co-Sign Detail Recorded Client Recorded Date Recorded By Document 09/18/21 11:26 [id number] 09/18/21 11:28 09/18/21 11:26 - Today's Visit Information Type of service Follow-up Visit (Physician/GREEN 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 ) Arrival Mode Wheelchair Patient Identification Verified (Name & Yes ) Patient Requires Transmission-Based No Precautions Height and Weight Body Mass Index (BMI) 26.9 BMI Classification Overweight Vital Signs Temperature (97.8 F-99.1 F) 97.1 F L Temperature Source Temporal Pulse Rate (60-100) 107 H Pulse Location Monitor Respiratory Rate (12-18) 16 Respiratory rate source Observation Blood Pressure (90/60-120/80) 131/70 H Blood Pressure Mean (mm Hg) 90 Source Monitor Position Semi-Fowlers Blood Pressure Location Left Arm History Since Last Visit- (Skip if this is Patient's initial visit) Have you changed medications since your No last visit? Any new allergies or adverse reactions No Had a fall/change in ADL's that may No increase risk of falls Signs or symptoms of abuse and/or No neglect since last visit Have you been in the hospital since your No last visit? Has dressing in place as prescribed Yes Has compression in place as prescribed Yes Has offloadiing in place as prescribed N/A Experienced any changes in pain level or No management Left Footwear Regular Shoe Right Footwear No Footwear Pain Scale: 0-10 Numeric Is Patient Pain Free? Yes ALISSA - Nurse 1 - General Ulcer Measurement Start: 08/25/21 13:09 Freq: Status: Active Protocol: Activity Type Activity Date Activity User E-Sign Co-Sign Detail Recorded Client Recorded Date Recorded By Document 09/18/21 11:26 NATY [id number] 09/18/21 11:28 NATY 09/18/21 11:26 Wound Center Nurse 1 #2 R MID LOWER LEG -Combined with other wound No -Current Size (cm) - Length 13.7 -Current Size (cm) - Width 2.6 -Current Size (cm) - Depth 0.2 -Total Square Cm 35.62 -Photo Taken No -Epithelialization Medium 34-66% -Tunneling No -Undermining/Tunneling No -Circular Undermining No -Exudate Amt Medium -Exudate Type Serosanguineous -Wound Margin Flat & Intact -Granulation Amt Large (67-100%) -Granulation Quality Red -Slough/Fibrin Yes -Necrosis Amt Small (1-33%) -Necrotic Tissue Type Adherent Slough -Structure Exposed N/A -Texture (Marie-wound Skin Appearance) Assessed, Localized Edema -Moisture (Marie-wound Skin Appearance) Assessed,Dry/ Scaly -Color (Marie-wound Skin Appearance) Assessed -Temperature (Marie-wound Skin No Abnormality Appearance) (Pt Warm) -Tenderness on Palpation (Marie-wound No Skin Appearance) -Ulcer Cleansing Wound Cleanser -Foul Odor after Cleansing No -Anesthetic Used 4% Lidocaine Solution Lower Limb Edema Present Yes Right Calf (cm) 30.8 Right Ankle (cm) 21.0 WC - Nurse 2 - General Ulcer CM Notes Start: 08/25/21 13:09 Freq: Status: Active Protocol: Activity Type Activity Date Activity User E-Sign Co-Sign Detail Recorded Client Recorded Date Recorded By Document 09/18/21 13:42 PL [id number] 09/18/21 13:44 PL 09/18/21 13:42 Wound Center Nurse 2 #2 R MID LOWER LEG -Time 11:52 -Correct Patient Yes -Correct Side, Site, Position Yes -Correct Procedure Yes -Procedure Performed Yes -Type of Procedure Debridement -Clinical Debridement Subcutaneous -Tissue Removed Subcutaneous -Post Debridement (cm) - Length 13.7 -Post Debridement (cm) - Width 2.6 -Post Debridement (cm) - Depth 0.2 -Total Square (Post) (cm) 35.62 -Area of Debridement (cm) - Length 13.7 -Area of Debridement (cm) - Width 2.6 -Total Square (Area) (cm) 35.62 -Tunneling No -Undermining/Tunneling No -Circular Undermining No -Wound/Ulcer Outcome Not Healed -Ulcer Cleansing Rinsed/ Irrigated with Saline -Foul Odor after Cleansing No -Bioengineered Tissue Yes -Type of Bioengineered Tissue Theraskin -Expiration Date 04/17/25 -Product Lot Number [id number] -Percent Used 100 -Bleeding Controlled with Pressure -Treatment Response Procedure Tolerated Well -Debridement - Subq, 1st 20sq cm No -Apply Skin Sub - 1st 25 sq cm - Legs 1 -Theraskin (per sq cm) 39 Pain Scale: 0-10 Numeric Is Patient Pain Free? Yes - Nurse 3 - General Ulcer D/C NN Start: 08/25/21 13:09 Freq: Status: Active Protocol: Activity Type Activity Date Activity User E-Sign Co-Sign Detail Recorded Client Recorded Date Recorded By Document 09/18/21 12:09 KR [id number] 09/18/21 12:10 KR 09/18/21 12:09 Wound Care Nurse 3 #2 R MID LOWER LEG -Primary Dressing Covered/Secured with Dry Gauze Right -Multi-Layered Wrap Application Unna Boot - Right ($) Pain Scale: 0-10 Numeric Is Patient Pain Free? Yes WC - Visit Discharge Discharge Condition Stable Ambulatory Status Ambulatory Transportation Private Auto Accompanied by mother Assessment/Plan Assessment/Plan (1) Non-pressure 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: CODE(S): L97.212 - Non-pressure 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 (2) 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: CODE(S): L97.512 - 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 (3) Chronic ulcer of right foot due to diabetes mellitus: CODE(S): E11.621 - Type 2 diabetes mellitus with foot ulcer; L97.519 - Non-pressure chronic ulcer of other part of right foot with unspecified severity (4) Type 2 diabetes mellitus with diabetic polyneuropathy: CODE(S): E11.42 - Type 2 diabetes mellitus with diabetic polyneuropathy QUALIFIERS: Diabetes mellitus skilled nursing insulin use: with ad terminal makeup operator use Qualified Code(s): E11.42 - Type 2 diabetes mellitus with diabetic polyneuropathy; Z79.4 - penitentiary (current) use of insulin (5) Type 2 diabetes mellitus with foot ulcer: CODE(S): E11.621 - Type 2 diabetes mellitus with foot ulcer; L97.509 - Non-pressure chronic ulcer of other part of unspecified foot with unspecified severity QUALIFIERS: Diabetes mellitus skilled nursing insulin use: with skilled nursing use Qualified Code(s): E11.621 - Type 2 diabetes mellitus with foot ulcer; L97.509 - Non-pressure chronic ulcer of other part of unspecified foot with unspecified severity; Z79.4 - penitentiary (current) use of insulin (6) Charcot's joint of right foot: CODE(S): M14.671 - Charcot's joint, right ankle and foot (7) Hypothyroidism: CODE(S): E03.9 - Hypothyroidism, unspecified QUALIFIERS: Hypothyroidism type: unspecified Qualified Code(s): E03.9 - Hypothyroidism, unspecified PLAN: The patient appears to be tolerating hyperbaric oxygen therapy well, which will be continued as per her medical treatment plan.
== END 2021-09-20 23:59 | disposition home or self-care (01) ==
LOC: WC 10:30
PROVIDERS: PCP Family Medicine; Visit Provider Student in an Organized Health Care Education/Training Program
DX: E11.621 Type 2 diabetes mellitus with foot ulcer (principal); L97.512 Non-pressure chronic 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; L97.212 Non-pressure 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; E11.610 Type 2 diabetes mellitus with diabetic neuropathic arthropathy; E11.42 Type 2 diabetes mellitus with diabetic polyneuropathy; Z79.4 Long term (current) use of insulin; R55 Syncope and collapse; E03.9 Hypothyroidism, unspecified; Z79.890 Hormone replacement therapy; Z79.899 Other long term (current) drug therapy; Z87.891 Personal history of nicotine dependence; Z86.14 Personal history of Methicillin resistant Staphylococcus aureus infection
CPT/HCPCS: 15271; 15272; 15275; 29580; 82962; 99183; Q4121; G0277

== ENCOUNTER 2021-10-16 11:15 | Outpatient (RCR) | payer MEDICAID, BC, SELFPAY ==
[2021-09-21 00:18] VITALS: BP 109/59; PULSE 103; RESP 17; TEMP 36.4; BMI 26.9
[2021-09-22 10:46] LABS: Bedside Glucose 141 mg/dL (74-106)
--- NOTE | 2021-09-22 10:54 | HBO.PN.PCM_ITS ---
History of Present Illness Date of Service: 09/22/21 Chief Complaint: right foot ulcer and Right Leg wound History of Wound: This 55-year-old female presents for care of right foot wound. She had surgery at [facility] in November 2020. She denies current fever, chill, nausea, vomiting. She denies delays in wound care and has been applying saline wet-to-dry to help with home health. She relates her bone biopsy that was obtained during her foot surgery was negative for osteomyelitis. She has a PICC placed and saw infectious disease specialist, Dr. Paez at [facility]. She relates she is almost complete with her IV antibiotic course. She is offloading with a surgical shoe. She takes nutritional supplementation including vitamin D and B. She denies claudication. She does have rest paresthesias. She is diabetic with an A1c of over 8%. She also has history of back injuries. Since her last visit, she reports she had thick fluid squirting out of the wound with application of her silver dressing. She was concerned it was infected and called in yesterday. She is advised by nursing staff to go to the emergency room if she thought she had a rapid onset infection. She relates she is scheduled to see her surgeon tomorrow. She did not obtain the previously ordered labs and foot x-rays. She denies current redness or odor. Medical records reviewed from and it is noted she had right foot incision and drainage of fifth metatarsal on 12-04-20. Her surgeon was Dr. Blanchard. She is advised wearing AFO brace. It is noted she started on Bactrim and then after the surgery she was placed on IV antibiotics. She later developed an infection of her right foot ulceration and underwent I&D with wide debridement on 05-23-21 and 05-28-[address] Alexandre and Dr. Gonzalez. Cultures were positive for MRSA and Enterococcus and was placed on IV Vancomycin by infectious disease. She was discharged to a alf facility with instructions for wound vac application to right anterior leg and lateral right foot and wet to dry Dakin's dressings to the right foot. Allergies: Clindamycin Medications cyclo-Benzapril, NuvaRing, Advil, Cytomel, [place], armodafinil, Singulair, Synthroid, Lyrica Past medical history: diabetes and history of back surgery, ankle surgery, right knee arthroscopy Social history: former smoker and no current tobacco use; quit in 1981 Subjective Subjective This Patient presents today for hyperbaric oxygen therapy treatment. Today's session represents the 17th such session of a planned 30 sessions. Hyperbaric oxygen therapy was administered as per the facility's protocol. Hyperbaric oxygen therapy was administered at 2 forrest for 90 minutes with no air breaks. Patient tolerated hyperbaric oxygen therapy well, without complaints or complications. Upon emergence from the hyperbaric chamber, the patient's vital signs remained stable. Blood glucose measurements were obtained both prior to and following hyperbaric oxygen therapy, and are recorded elsewhere. The joe sanchez was discharged in good condition. Objective Data Objective Data Vital Signs: Vital Signs Temp Pulse Resp BP 97.6 F L 103 H 17 109/59 L 09/21/21 00:18 09/21/21 00:18 09/21/21 00:18 09/21/21 00:18 Weight: 177 lb Body Mass Index (BMI) 26.9 Lab / Micro Data Labs: Laboratory Results - last 24 hr 09/22/21 10:41: POC Glucose 141 H Exam Physical Exam Const alert, oriented x3 and no apparent distress General Appearance: cooperative and comfortable HEENT normocephalic, head/scalp atraumatic and TM's normal bilaterally HEENT Narrative: Bilateral eustachian tubes intact Tympanic Membrane: TM's normal bilaterally Resp normal respiratory effort Effort and Inspection: able to speak in complete sentences Psych mental status grossly normal, thought process normal, cooperative and affect normal Assessment/Plan Assessment/Plan (1) Chronic ulcer of right foot due to diabetes mellitus: CODE(S): E11.621 - Type 2 diabetes mellitus with foot ulcer; L97.519 - Non-pressure chronic ulcer of other part of right foot with unspecified severity PLAN: The patient appears to be tolerating hyperbaric oxygen therapy well, which will be continued as per the patient's medical plan. (2) Non-pressure 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: CODE(S): L97.212 - Non-pressure 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 (3) 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: CODE(S): L97.512 - 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 (4) Type 2 diabetes mellitus with diabetic polyneuropathy: CODE(S): E11.42 - Type 2 diabetes mellitus with diabetic polyneuropathy QUALIFIERS: Diabetes mellitus supervisor intermediates insulin use: with supervisor intermediates use Qualified Code(s): E11.42 - Type 2 diabetes mellitus with diabetic polyneuropathy; Z79.4 - long term (current) use of insulin (5) Charcot's joint of right foot: CODE(S): M14.671 - Charcot's joint, right ankle and foot (6) Hypothyroidism: CODE(S): E03.9 - Hypothyroidism, unspecified QUALIFIERS: Hypothyroidism type: unspecified Qualified Code(s): E03.9 - Hypothyroidism, unspecified
[2021-09-22 12:46] LABS: Bedside Glucose 78 mg/dL (74-106)
[2021-09-22 13:23] VITALS: BP 117/69; BP 92/64; PULSE 68; PULSE 98; RESP 16; TEMP 36.2
[2021-09-24 10:35] LABS: Bedside Glucose 153 mg/dL (74-106)
[2021-09-24 11:09] VITALS: BP 108/60; BP 112/60; PULSE 106; PULSE 85; RESP 16; TEMP 36.2
--- NOTE | 2021-09-24 12:24 | PCM.HBO.PN ---
History of Present Illness Date of Service: 09/24/21 Chief Complaint: right foot ulcer and Right Leg wound History of Wound: This 55-year-old female presents for care of right foot wound. She had surgery at [facility] in November 2020. She denies current fever, chill, nausea, vomiting. She denies delays in wound care and has been applying saline wet-to-dry to help with home health. She relates her bone biopsy that was obtained during her foot surgery was negative for osteomyelitis. She has a PICC placed and saw infectious disease specialist, Dr. Paez at [facility]. She relates she is almost complete with her IV antibiotic course. She is offloading with a surgical shoe. She takes nutritional supplementation including vitamin D and B. She denies claudication. She does have rest paresthesias. She is diabetic with an A1c of over 8%. She also has history of back injuries. Since her last visit, she reports she had thick fluid squirting out of the wound with application of her silver dressing. She was concerned it was infected and called in yesterday. She is advised by nursing staff to go to the emergency room if she thought she had a rapid onset infection. She relates she is scheduled to see her surgeon tomorrow. She did not obtain the previously ordered labs and foot x-rays. She denies current redness or odor. Medical records reviewed from and it is noted she had right foot incision and drainage of fifth metatarsal on 12-04-20. Her surgeon was Dr. Blanchard. She is advised wearing AFO brace. It is noted she started on Bactrim and then after the surgery she was placed on IV antibiotics. She later developed an infection of her right foot ulceration and underwent I&D with wide debridement on 05-23-21 and 05-28-[address] Alexandre and Dr[address] Gonzalez. Cultures were positive for MRSA and Enterococcus and was placed on IV Vancomycin by infectious disease. She was discharged to a nursing home facility with instructions for wound vac application to right anterior leg and lateral right foot and wet to dry Dakin's dressings to the right foot. Allergies: Clindamycin Medications cyclo-Benzapril, NuvaRing, Advil, Cytomel, [place], armodafinil, Singulair, Synthroid, Lyrica Past medical history: diabetes and history of back surgery, ankle surgery, right knee arthroscopy Social history: former smoker and no current tobacco use; quit in 1981 Progress of Wound: Patient tolerated #18 of 30 treatments today for HBO for her diabetic foot wound Subjective Subjective Patient has no concerns Objective Data Objective Data Signs of been stable admission and discharge from the HBO chamber. Patient will continue as scheduled Vital Signs: Vital Signs Temp Pulse Resp BP 97.2 F L 106 H 16 112/60 09/24/21 11:09 09/24/21 11:09 09/24/21 11:09 09/24/21 11:09 Weight: 177 lb Body Mass Index (BMI) 26.9 Lab / Micro Data Labs: Laboratory Results - last 24 hr 09/24/21 10:31: POC Glucose 153 H Exam Physical Exam Const alert, oriented x3 and no apparent distress General Appearance: cooperative and comfortable HEENT normocephalic, head/scalp atraumatic and TM's normal bilaterally HEENT Narrative: Bilateral eustachian tubes intact Tympanic Membrane: TM's normal bilaterally Resp normal respiratory effort Effort and Inspection: able to speak in complete sentences Psych mental status grossly normal, thought process normal, cooperative and affect normal Assessment/Plan Assessment/Plan (1) Non-pressure 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: CODE(S): L97.212 - Non-pressure 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 (2) 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: CODE(S): L97.512 - 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 (3) Type 2 diabetes mellitus with diabetic polyneuropathy: CODE(S): E11.42 - Type 2 diabetes mellitus with diabetic polyneuropathy QUALIFIERS: Diabetes mellitus ocean transportation intermediary insulin use: with care home use Qualified Code(s): E11.42 - Type 2 diabetes mellitus with diabetic polyneuropathy; Z79.4 - exterminator helper (current) use of 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
[2021-09-24 13:10] LABS: Bedside Glucose 87 mg/dL (74-106)
[2021-09-25 11:34] VITALS: BP 145/77; PULSE 94; TEMP 36.2; BMI 26.9
--- NOTE | 2021-09-25 12:15 | PN.PCM_ITS ---
History of Present Illness Date of Service: 09/25/21 Chief Complaint: right foot ulcer and Right Leg wound History of Wound: This 55-year-old female presents for care of right foot wound. She had surgery at [facility] in November 2020. She denies current fever, chill, nausea, vomiting. She denies delays in wound care and has been applying saline wet-to-dry to help with home health. She relates her bone biopsy that was obtained during her foot surgery was negative for osteomyelitis. She has a PICC placed and saw infectious disease specialist, Dr. Paez at [facility]. She relates she is almost complete with her IV antibiotic course. She is offloading with a surgical shoe. She takes nutritional supplementation including vitamin D and B. She denies claudication. She does have rest paresthesias. She is diabetic with an A1c of over 8%. She also has history of back injuries. Since her last visit, she reports she had thick fluid squirting out of the wound with application of her silver dressing. She was concerned it was infected and called in yesterday. She is advised by nursing staff to go to the emergency room if she thought she had a rapid onset infection. She relates she is scheduled to see her surgeon tomorrow. She did not obtain the previously ordered labs and foot x-rays. She denies current redness or odor. Medical records reviewed from and it is noted she had right foot incision and drainage of fifth metatarsal on 12-04-20. Her surgeon was Dr. Blanchard. She is advised wearing AFO brace. It is noted she started on Bactrim and then after the surgery she was placed on IV antibiotics. She later developed an infection of her right foot ulceration and underwent I&D with wide debridement on 05-23-21 and 05-28-[address] Alexandre and Dr. Gonzalez. Cultures were positive for MRSA and Enterococcus and was placed on IV Vancomycin by infectious disease. She was discharged to a long term facility with instructions for wound vac application to right anterior leg and lateral right foot and wet to dry Dakin's dressings to the right foot. Allergies: Clindamycin Medications cyclo-Benzapril, NuvaRing, Advil, Cytomel, [place], armodafinil, Singulair, Synthroid, Lyrica Past medical history: diabetes and history of back surgery, ankle surgery, right knee arthroscopy Social history: former smoker and no current tobacco use; quit in 1981 Progress of Wound: Patient tolerated #18 of 30 treatments today for HBO for her diabetic foot wound Subjective Subjective This 55-year-old female who presents to the wound care center for follow-up of her right anterior lower extremity wound. She continues to deny any constitutional symptoms. She continues to deny any pain to the site. She states that her hyperbaric dives are continuing to go well. She states she is taking medications to help syncope episodes secondary to her hyperbaric dives, which is helping. She has no other complaints today. Objective Data Objective Data Vital Signs: Vital Signs Temp Pulse Resp BP 97.2 F L 94 16 145/77 H 09/25/21 11:34 09/25/21 11:34 09/24/21 11:09 09/25/21 11:34 Weight: 80.286 kg Body Mass Index (BMI) 26.9 Lab / Micro Data Labs: Laboratory Results - last 24 hr 09/24/21 12:32: POC Glucose 87 Physical Exam Const alert, oriented x3 and no apparent distress General Appearance: cooperative and comfortable HEENT normocephalic Eyes General Eye: normal appearance of both eyes Neck General: normal visual inspection Lymph Lymphatic: no lymphadenopathy noted and no lymphedema noted Chest inspection of chest normal Resp normal respiratory effort Cardio regular rate and regular rhythm Extremity normal capillary refill and no calf tenderness Skin Skin Narrative: Ulceration site to the right anterior lower extremity. Right lateral foot and medial foot cicatrix noted. Surrounding skin is intact, casiano pple, and atrophic. Secondary to previous surgical debridement of an abscess of the foot and anterior compartment of the lower extremity Neuro oriented x3 and moves all extremities Debridement Note Debridement Note Wound debrided: Anterior lower extremity Laterality: Right Wound Grade/Stage: Gonzalez stage III Type of Debridement: Excisional debridement Anesthesia Used: 4% Lidocaine Solution Depth: Down to and including healthy tissue and in the subcutaneous layer Percentage of wound debrided: 100 Instrument Used: #15 blade Tissue Removed: Fibrous, devitalized subcutaneous, biofilm, slough Severity: Fat Layer Exposed Amount of bleeding with debridement: Mild Bleeding Controlled with: Compression and gauze Patient tolerated procedure: Patient tolerated procedure well Post-Debridement Measurements and Additional Note: Post-Debridement Measurements/Treatment WC - Nurse 1 - General Ulcer Assessment Start: 09/22/21 13:22 Freq: Status: Active Protocol: [email or web address].[email or web address] Activity Type Activity Date Activity User E-Sign Co-Sign Detail Recorded Client Recorded Date Recorded By Document 09/25/21 11:34 LAYLA [id number] 09/25/21 11:43 LAYLA 09/25/21 11:34 - Today's Visit Information Type of service Follow-up Visit (Physician/SURGICAL GARMENT ASSEMBLER ) Arrival Mode Wheelchair Patient Identification Verified (Name & Yes ) Height and Weight Body Mass Index (BMI) 26.9 BMI Classification Overweight Vital Signs Temperature (97.8 F-99.1 F) 97.2 F L Temperature Source Temporal Pulse Rate (60-100) 94 Pulse Location Monitor Blood Pressure (90/60-120/80) 145/77 H Blood Pressure Mean (mm Hg) 99 Source Monitor Position Semi-Fowlers Blood Pressure Location Right Arm History Since Last Visit- (Skip if this is Patient's initial visit) Have you changed medications since your No last visit? Any new allergies or adverse reactions No Had a fall/change in ADL's that may No increase risk of falls Signs or symptoms of abuse and/or No neglect since last visit Have you been in the hospital since your No last visit? Has dressing in place as prescribed No Left Footwear Regular Shoe Right Footwear No Footwear Pain Scale: 0-10 Numeric Is Patient Pain Free? Yes - Nurse 1 - General Ulcer Measurement Start: 09/22/21 13:22 Freq: Status: Active Protocol: Activity Type Activity Date Activity User E-Sign Co-Sign Detail Recorded Client Recorded Date Recorded By Document 09/25/21 11:34 LAYLA [id number] 09/25/21 11:43 LAYLA 09/25/21 11:34 Wound Center Nurse 1 #2 R MID LOWER LEG -Current Size (cm) - Length 6.9 -Current Size (cm) - Width 2.1 -Current Size (cm) - Depth 0.1 -Total Square Cm 14.49 -Exudate Amt Large -Exudate Type Serosanguineous -Wound Margin Distinct, Outline Attached -Granulation Amt Large (67-100%) -Granulation Quality Red -Necrosis Amt None Present (0 %) -Texture (Marie-wound Skin Appearance) Assessed, Scarring -Moisture (Marie-wound Skin Appearance) No Abnormality, Assessed -Color (Marie-wound Skin Appearance) No Abnormality, Assessed -Temperature (Marie-wound Skin No Abnormality Appearance) (Pt Warm) -Tenderness on Palpation (Marie-wound No Skin Appearance) -Ulcer Cleansing Soap and Water -Foul Odor after Cleansing Yes -Anesthetic Used 4% Lidocaine Solution,5% Lidocaine Gel Assessment/Plan Assessment/Plan (1) Non-pressure 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: CODE(S): L97.212 - Non-pressure 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 (2) 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: CODE(S): L97.512 - 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 (3) Chronic ulcer of right foot due to diabetes mellitus: CODE(S): E11.621 - Type 2 diabetes mellitus with foot ulcer; L97.519 - Non-pressure chronic ulcer of other part of right foot with unspecified severity (4) Type 2 diabetes mellitus with diabetic polyneuropathy: CODE(S): E11.42 - Type 2 diabetes mellitus with diabetic polyneuropathy QUALIFIERS: Diabetes mellitus exterminator helper termite insulin use: with nursing home use Qualified Code(s): E11.42 - Type 2 diabetes mellitus with diabetic polyneuropathy; Z79.4 - snf (current) use of insulin (5) Type 2 diabetes mellitus with foot ulcer: CODE(S): E11.621 - Type 2 diabetes mellitus with foot ulcer; L97.509 - Non-pressure chronic ulcer of other part of unspecified foot with unspecified severity QUALIFIERS: Diabetes mellitus exterminator helper termite insulin use: with exterminator helper termite use Qualified Code(s): E11.621 - Type 2 diabetes mellitus with foot ulcer; L97.509 - Non-pressure chronic ulcer of other part of unspecified foot with unspecified severity; Z79.4 - snf (current) use of insulin (6) Charcot's joint of right foot: CODE(S): M14.671 - Charcot's joint, right ankle and foot (7) Hypothyroidism: CODE(S): E03.9 - Hypothyroidism, unspecified QUALIFIERS: Hypothyroidism type: unspecified Qualified Code(s): E03.9 - Hypothyroidism, unspecified PLAN: This is a 55-year-old female with history of wide I&D and deep debridement of the right foot and ankle from 05/23/2021 and 05/28/[address] Alexand[address] and Dr. Gonzalez, podiatric specialist. She has history of MRSA inf ection. Her wounds are complicated by diabetes mellitus type 2 with peripheral polyneuropathy, Charcot joint deformity of the right foot, hypothyroidism. Following surgical debridement and recovery in the hospital she was on IV antibiotics vancomycin. Infectious disease discontinued her vancomycin and placed her on daptomycin. She was discharged to a long term facility where they have been continuing daily dressing changes wet-to-dry Dakin's. Patient and daughter were unhappy with the nursing facility and changed to a different long term facility where they were much happier with her care. She has since been discharged from the nursing facility to her home on 07/11/2021. She has been compliant with her nonweightbearing status to her right lower extremity. She is accompanied by her mother today to the wound care center for follow-up of her wounds to her right lower extremity. Patient seen and evaluated. She has undergone tube placement for her ears and is continuing her HBO dives, these are going well. The right anterior lower extremity wound is continuing to progress closing at the most proximal and most distal portions with continued new skin coverage. TheraSkin graft is taking well to the wound bed and wound margins. Her wounds demonstrate no localized signs of infection. The surrounding skin is intact and atrophic. This wound is continuing with good progression towards full closure. Right lateral foot wound is healed. The medial right foot wound is healed with a stable cicatrix. TheraSkin graft #9 applied to the right anterior lower extremity wound. Site was dressed with wound veil and anchored with Steri-Strips. We will continue with Unna boot to the right lower extremity. She is instructed to leave dressings clean, dry, and intact. Her right lower extremity anterior wound is a Gonzalez grade 3 at her right lateral foot wound is a Gonzalez grade 3, right medial foot wound Gonzalez grade 3. She underwent a surgical debridement of all 3 of these Gonzalez grade 3 wounds to the right lower extremity on 05/23/2021 to drain a deep abscess and debride necrotic tissue and tendon. She underwent a second debridement procedure on 05/28/2021 to drain deep anterior compartment abscess of the right lower extremity. She had undergone and completed 8 weeks of IV vancomycin and her PICC line was pulled on 07/09/2021. There is no localized signs of infection to any of the right foot wounds. Grafting product is applied to the right anterior wound. She continues to make good progress in her healing status. She is very pleased with her treatment progress. I discussed with her to continue to ensure proper diabetic glycemic control and intake of protein to ensure wound healing and graft take. I reviewed and discussed her case today. Debridement was performed today as noted in the clinical panel to all of the ulcer sites. The following work up and care recommendations were made: Dressing: Leave TheraSkin graft in place with wound veil covering and Unna boot Wash: Do not wash Tissue growth optimization: TheraSkin skin substitute right anterior leg wound Offload: Nonweightbearing right lower extremity with elevation via soft pillows Vascular: Edema: Unna boot will aid in edema control along with elevation of lower extremity Infection: No localized signs of infection Pain: Continue with Motrin and Tylenol extra strength at home Host factors: History of MRSA and Enterococcus infection. Diabetes type 2 with peripheral polyneuropathy, discussed proper glycemic control and intake of protein to ensure wound healing. I answered all the patient's questions. To return to the wound healing center in 1 week or call sooner if the patient has any questions or concerns. Note: Lydia speech recognition it architecture analyst software was used to create portions of this document. Sound-alike and misspelled words, as well as other it architecture analyst errors may be contained in the documentation.
[2021-09-26 10:56] LABS: Bedside Glucose 169 mg/dL (74-106)
[2021-09-26 11:13] VITALS: BP 101/66; BP 109/58; PULSE 77; PULSE 98; RESP 17; TEMP 36.3
[2021-09-26 12:51] LABS: Bedside Glucose 101 mg/dL (74-106)
--- NOTE | 2021-09-26 15:29 | HBO.PN.PCM_ITS ---
History of Present Illness Date of Service: 09/26/21 Chief Complaint: right foot ulcer and Right Leg wound History of Wound: This 55-year-old female presents for care of right foot wound. She had surgery at [facility] in November 2020. She denies current fever, chill, nausea, vomiting. She denies delays in wound care and has been applying saline wet-to-dry to help with home health. She relates her bone biopsy that was obtained during her foot surgery was negative for osteomyelitis. She has a PICC placed and saw infectious disease specialist, Dr. Paez at [facility]. She relates she is almost complete with her IV antibiotic course. She is offloading with a surgical shoe. She takes nutritional supplementation including vitamin D and B. She denies claudication. She does have rest paresthesias. She is diabetic with an A1c of over 8%. She also has history of back injuries. Since her last visit, she reports she had thick fluid squirting out of the wound with application of her silver dressing. She was concerned it was infected and called in yesterday. She is advised by nursing staff to go to the emergency room if she thought she had a rapid onset infection. She relates she is scheduled to see her surgeon tomorrow. She did not obtain the previously ordered labs and foot x-rays. She denies current redness or odor. Medical records reviewed from and it is noted she had right foot incision and drainage of fifth metatarsal on 12-04-20. Her surgeon was Dr. Blanchard. She is advised wearing AFO brace. It is noted she started on Bactrim and then after the surgery she was placed on IV antibiotics. She later developed an infection of her right foot ulceration and underwent I&D with wide debridement on 05-23-21 and 05-28-[address] Alexandre and Dr. Gonzalez. Cultures were positive for MRSA and Enterococcus and was placed on IV Vancomycin by infectious disease. She was discharged to a care home facility with instructions for wound vac application to right anterior leg and lateral right foot and wet to dry Dakin's dressings to the right foot. Allergies: Clindamycin Medications cyclo-Benzapril, NuvaRing, Advil, Cytomel, [place], armodafinil, Singulair, Synthroid, Lyrica Past medical history: diabetes and history of back surgery, ankle surgery, right knee arthroscopy Social history: former smoker and no current tobacco use; quit in 1981 Progress of Wound: Patient tolerated #18 of 30 treatments today for HBO for her diabetic foot wound Subjective Subjective Progress: Today is the 19th treatment of hyperbaric oxygen therapy. The patient is scheduled for 30 treatments total. Tolerance of hyperbaric oxygen therapy: Hyperbaric oxygen treatment was provided as per the facility's protocol at 2.0 KELLY in 100% oxygen for 90 minutes without air breaks. The patient tolerated hyperbaric oxygen well, without complications or complaints. Upon emergence of the hyperbaric chamber, the patient's vital signs remained stable. Objective Data Objective Data Vital Signs: Vital Signs Temp Pulse Resp BP 97.3 F L 98 17 101/66 09/26/21 11:13 09/26/21 11:13 09/26/21 11:13 09/26/21 11:13 Weight: 80.286 kg Body Mass Index (BMI) 26.9 Lab / Micro Data Labs: Laboratory Results - last 24 hr 09/26/21 10:40: POC Glucose 169 H 09/26/21 12:42: POC Glucose 101 Exam Physical Exam Const alert, oriented x3 and no apparent distress Psych mental status grossly normal, thought process normal, cooperative, affect normal and speech normal Nursing Assessment and Debridement Post-Debridement Measurements and Additional Note: Post-Debridement Measurements/Treatment WC - Nurse 1 - General Ulcer Assessment Start: 09/22/21 13:22 Freq: Status: Active Protocol: [email or web address] Activity Type Activity Date Activity User E-Sign Co-Sign Detail Recorded Client Recorded Date Recorded By Document 09/25/21 11:34 [id number] 09/25/21 11:43 LAYLA 09/25/21 11:34 - Today's Visit Information Type of service Follow-up Visit (Physician/FINAL RAIL CUTTER ) Arrival Mode Wheelchair Patient Identification Verified (Name & Yes ) Height and Weight Body Mass Index (BMI) 26.9 BMI Classification Overweight Vital Signs Temperature (97.8 F-99.1 F) 97.2 F L Temperature Source Temporal Pulse Rate (60-100) 94 Pulse Location Monitor Blood Pressure (90/60-120/80) 145/77 H Blood Pressure Mean (mm Hg) 99 Source Monitor Position Semi-Fowlers Blood Pressure Location Right Arm History Since Last Visit- (Skip if this is Patient's initial visit) Have you changed medications since your No last visit? Any new allergies or adverse reactions No Had a fall/change in ADL's that may No increase risk of falls Signs or symptoms of abuse and/or No neglect since last visit Have you been in the hospital since your No last visit? Has dressing in place as prescribed No Left Footwear Regular Shoe Right Footwear No Footwear Pain Scale: 0-10 Numeric Is Patient Pain Free? Yes WC - Nurse 1 - General Ulcer Measurement Start: 09/22/21 13:22 Freq: Status: Active Protocol: Activity Type Activity Date Activity User E-Sign Co-Sign Detail Recorded Client Recorded Date Recorded By Document 09/25/21 11:34 LAYLA [id number] 09/25/21 11:43 KR 09/25/21 11:34 Wound Center Nurse 1 #2 R MID LOWER LEG -Current Size (cm) - Length 6.9 -Current Size (cm) - Width 2.1 -Current Size (cm) - Depth 0.1 -Total Square Cm 14.49 -Exudate Amt Large -Exudate Type Serosanguineous -Wound Margin Distinct, Outline Attached -Granulation Amt Large (67-100%) -Granulation Quality Red -Necrosis Amt None Present (0 %) -Texture (Marie-wound Skin Appearance) Assessed, Scarring -Moisture (Marie-wound Skin Appearance) No Abnormality, Assessed -Color (Marie-wound Skin Appearance) No Abnormality, Assessed -Temperature (Marie-wound Skin No Abnormality Appearance) (Pt Warm) -Tenderness on Palpation (Marie-wound No Skin Appearance) -Ulcer Cleansing Soap and Water -Foul Odor after Cleansing Yes -Anesthetic Used 4% Lidocaine Solution,5% Lidocaine Gel - Nurse 2 - General Ulcer CM Notes Start: 09/22/21 13:22 Freq: Status: Active Protocol: Activity Type Activity Date Activity User E-Sign Co-Sign Detail Recorded Client Recorded Date Recorded By Document 09/25/21 13:44 RAQUEL [id number] 09/25/21 13:46 PL 09/25/21 13:44 Wound Center Nurse 2 -Time 12:05 -Correct Patient Yes -Correct Side, Site, Position Yes -Correct Procedure Yes -Procedure Performed Yes -Type of Procedure Debridement -Clinical Debridement Subcutaneous -Tissue Removed Subcutaneous -Post Debridement (cm) - Length 7.6 -Post Debridement (cm) - Width 2.1 -Post Debridement (cm) - Depth 0.1 -Total Square (Post) (cm) 15.96 -Area of Debridement (cm) - Length 7.6 -Area of Debridement (cm) - Width 2.1 -Total Square (Area) (cm) 15.96 -Tunneling No -Undermining/Tunneling No -Circular Undermining No -Wound/Ulcer Outcome Not Healed -Ulcer Cleansing Rinsed/ Irrigated with Saline -Foul Odor after Cleansing No -Bioengineered Tissue Yes -Type of Bioengineered Tissue Theraskin -Expiration Date 09/24/24 -Product Lot Number [id number] -Percent Used 100 -Bleeding Controlled with Pressure -Treatment Response Procedure Tolerated Well -Debridement - Subq, 1st 20sq cm No -Apply Skin Sub - 1st 25 sq cm - Legs 1 -Theraskin (per sq cm) 26 Pain Scale: 0-10 Numeric Is Patient Pain Free? Yes - Nurse 3 - General Ulcer D/C NN Start: 09/22/21 13:22 Freq: Status: Active Protocol: Activity Type Activity Date Activity User E-Sign Co-Sign Detail Recorded Client Recorded Date Recorded By Document 09/25/21 12:31 VALARIE [id number] 09/25/21 12:33 VALARIE 09/25/21 12:31 Wound Care Nurse 3 #2 R MID LOWER LEG -Foul Odor after Cleansing No -Negative Pressure Wound Therapy N/A -Primary Dressing Applied Aquacel AG 4x4, Optilok 6.5x10 -Aquacel AG 4x4 1 -Optilok 6.5x10 1 Right -Lotion applied to leg before No compression wrap -Multi-Layered Wrap Application Unna Boot - Right ($) Pain Scale: 0-10 Numeric Is Patient Pain Free? Yes WC - Visit Discharge Discharge Condition Stable Ambulatory Status Ambulatory, Wheelchair Medication Reconcilliation completed & Yes provided to patient/care provider Clinical Summary of Care Provided Yes Assessment/Plan Assessment/Plan (1) Non-pressure 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: CODE(S): L97.212 - Non-pressure 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 (2) 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 ex posed: CODE(S): L97.512 - 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 (3) Chronic ulcer of right foot due to diabetes mellitus: CODE(S): E11.621 - Type 2 diabetes mellitus with foot ulcer; L97.519 - Non-pressure chronic ulcer of other part of right foot with unspecified severity (4) Type 2 diabetes mellitus with diabetic polyneuropathy: CODE(S): E11.42 - Type 2 diabetes mellitus with diabetic polyneuropathy QUALIFIERS: Diabetes mellitus long wall mining machine tender insulin use: with long wall mining machine tender use Qualified Code(s): E11.42 - Type 2 diabetes mellitus with diabetic polyneuropathy; Z79.4 - moth exterminator (current) use of insulin (5) Type 2 diabetes mellitus with foot ulcer: CODE(S): E11.621 - Type 2 diabetes mellitus with foot ulcer; L97.509 - Non-pressure chronic ulcer of other part of unspecified foot with unspecified severity QUALIFIERS: Diabetes mellitus long wall mining machine tender insulin use: with long wall mining machine tender use Qualified Code(s): E11.621 - Type 2 diabetes mellitus with foot ulcer; L97.509 - Non-pressure chronic ulcer of other part of unspecified foot with unspecified severity; Z79.4 - moth exterminator (current) use of insulin (6) Charcot's joint of right foot: CODE(S): M14.671 - Charcot's joint, right ankle and foot (7) Hypothyroidism: CODE(S): E03.9 - Hypothyroidism, unspecified QUALIFIERS: Hypothyroidism type: unspecified Qualified Code(s): E03.9 - Hypothyroidism, unspecified PLAN: The patient appears to be tolerating hyperbaric oxygen therapy well, which will be continued as per their medical treatment plan.
[2021-09-29 10:31] LABS: Bedside Glucose 147 mg/dL (74-106)
--- NOTE | 2021-09-29 10:40 | HBO.PN.PCM_ITS ---
History of Present Illness Date of Service: 09/29/21 Chief Complaint: right foot ulcer and Right Leg wound History of Wound: This 55-year-old female presents for care of right foot wound. She had surgery at [facility] in November 2020. She denies current fever, chill, nausea, vomiting. She denies delays in wound care and has been applying saline wet-to-dry to help with home health. She relates her bone biopsy that was obtained during her foot surgery was negative for osteomyelitis. She has a PICC placed and saw infectious disease specialist, Dr. Paez at [facility]. She relates she is almost complete with her IV antibiotic course. She is offloading with a surgical shoe. She takes nutritional supplementation including vitamin D and B. She denies claudication. She does have rest paresthesias. She is diabetic with an A1c of over 8%. She also has history of back injuries. Since her last visit, she reports she had thick fluid squirting out of the wound with application of her silver dressing. She was concerned it was infected and called in yesterday. She is advised by nursing staff to go to the emergency room if she thought she had a rapid onset infection. She relates she is scheduled to see her surgeon tomorrow. She did not obtain the previously ordered labs and foot x-rays. She denies current redness or odor. Medical records reviewed from and it is noted she had right foot incision and drainage of fifth metatarsal on 12-04-20. Her surgeon was Dr. Blanchard. She is advised wearing AFO brace. It is noted she started on Bactrim and then after the surgery she was placed on IV antibiotics. She later developed an infection of her right foot ulceration and underwent I&D with wide debridement on 05-23-21 and 05-28-[address] Alexandre and Dr. Gonzalez. Cultures were positive for MRSA and Enterococcus and was placed on IV Vancomycin by infectious disease. She was discharged to a correction facility with instructions for wound vac application to right anterior leg and lateral right foot and wet to dry Dakin's dressings to the right foot. Allergies: Clindamycin Medications cyclo-Benzapril, NuvaRing, Advil, Cytomel, [place], armodafinil, Singulair, Synthroid, Lyrica Past medical history: diabetes and history of back surgery, ankle surgery, right knee arthroscopy Social history: former smoker and no current tobacco use; quit in 1981 Progress of Wound: Patient tolerated #18 of 30 treatments today for HBO for her diabetic foot wound Subjective Subjective This Patient presents today for hyperbaric oxygen therapy treatment. Today's session represents the 20th such session of a planned 30 sessions. Hyperbaric oxygen therapy was administered as per the facility's protocol. Hyperbaric oxygen therapy was administered at 2 forrest for 90 minutes with no air breaks. Patient tolerated hyperbaric oxygen therapy well, without complaints or complications. Upon emergence from the hyperbaric chamber, the patient's vital signs remained stable. Blood glucose measurements were obtained both prior to and following hyperbaric oxygen therapy, and are recorded elsewhere. The patient was discharged in good condition. Objective Data Objective Data Vital Signs: Vital Signs Temp Pulse Resp BP 97.3 F L 98 17 101/66 09/26/21 11:13 09/26/21 11:13 09/26/21 11:13 09/26/21 11:13 Weight: 177 lb Body Mass Index (BMI) 26.9 Lab / Micro Data Labs: Laboratory Results - last 24 hr 09/29/21 10:25: POC Glucose 147 H Exam Physical Exam Const alert, oriented x3 and no apparent distress General Appearance: cooperative and comfortable HEENT normocephalic, head/scalp atraumatic and TM's normal bilaterally HEENT Narrative: Bilateral eustachian tubes intact Tympanic Membrane: TM's normal bilaterally Resp normal respiratory effort Effort and Inspection: able to speak in complete sentences Psych mental status grossly normal, thought process normal, cooperative and affect normal Assessment/Plan Assessment/Plan (1) Chronic ulcer of right foot due to diabetes mellitus: CODE(S): E11.621 - Type 2 diabetes mellitus with foot ulcer; L97.519 - No n-pressure chronic ulcer of other part of right foot with unspecified severity PLAN: The patient appears to be tolerating hyperbaric oxygen therapy well, which will be continued as per the patient's medical plan. (2) Non-pressure 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: CODE(S): L97.212 - Non-pressure 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 (3) 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: CODE(S): L97.512 - 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 (4) Type 2 diabetes mellitus with diabetic polyneuropathy: CODE(S): E11.42 - Type 2 diabetes mellitus with diabetic polyneuropathy QUALIFIERS: Diabetes mellitus tank terminal gauger insulin use: with correction use Qualified Code(s): E11.42 - Type 2 diabetes mellitus with diabetic polyneuropathy; Z79.4 - senior living (current) use of insulin (5) Charcot's joint of right foot: CODE(S): M14.671 - Charcot's joint, right ankle and foot (6) Hypothyroidism: CODE(S): E03.9 - Hypothyroidism, unspecified QUALIFIERS: Hypothyroidism type: unspecified Qualified Code(s): E03.9 - Hypothyroidism, unspecified
[2021-09-29 12:03] VITALS: BP 113/54; BP 113/65; PULSE 71; PULSE 85; RESP 16; TEMP 36.9
[2021-09-29 12:56] LABS: Bedside Glucose 94 mg/dL (74-106)
[2021-10-01 10:40] LABS: Bedside Glucose 154 mg/dL (74-106)
[2021-10-01 11:07] VITALS: BP 108/55; BP 129/64; PULSE 102; PULSE 82; RESP 16; RESP 17; TEMP 36.5
--- NOTE | 2021-10-01 12:32 | PCM.HBO.PN ---
History of Present Illness Date of Service: 10/01/21 Chief Complaint: right foot ulcer and Right Leg wound History of Wound: This 55-year-old female presents for care of right foot wound. She had surgery at [facility] [place] in November 2020. She denies current fever, chill, nausea, vomiting. She denies delays in wound care and has been applying saline wet-to-dry to help with home health. She relates her bone biopsy that was obtained during her foot surgery was negative for osteomyelitis. She has a PICC placed and saw infectious disease specialist, Dr. Paez at [facility] [place]. She relates she is almost complete with her IV antibiotic course. She is offloading with a surgical shoe. She takes nutritional supplementation including vitamin D and B. She denies claudication. She does have rest paresthesias. She is diabetic with an A1c of over 8%. She also has history of back injuries. Since her last visit, she reports she had thick fluid squirting out of the wound with application of her silver dressing. She was concerned it was infected and called in yesterday. She is advised by nursing staff to go to the emergency room if she thought she had a rapid onset infection. She relates she is scheduled to see her surgeon tomorrow. She did not obtain the previously ordered labs and foot x-rays. She denies current redness or odor. Medical records reviewed from and it is noted she had right foot incision and drainage of fifth metatarsal on 12-04-20. Her surgeon was Dr. Blanchard. She is advised wearing AFO brace. It is noted she started on Bactrim and then after the surgery she was placed on IV antibiotics. She later developed an infection of her right foot ulceration and underwent I&D with wide debridement on 05-23-21 and 05-28-[address] Alexandre and Dr[address] Gonzalez. Cultures were positive for MRSA and Enterococcus and was placed on IV Vancomycin by infectious disease. She was discharged to a custodial facility with instructions for wound vac application to right anterior leg and lateral right foot and wet to dry Dakin's dressings to the right foot. Allergies: Clindamycin Medications cyclo-Benzapril, NuvaRing, Advil, Cytomel, [place], armodafinil, Singulair, Synthroid, Lyrica Past medical history: diabetes and history of back surgery, ankle surgery, right knee arthroscopy Social history: former smoker and no current tobacco use; quit in 1981 Progress of Wound: Patient tolerated #18 of 30 treatments today for HBO for her diabetic foot wound Subjective Subjective No concerns Objective Data Objective Data Patient receiving #21 of 30 HBO treatments tolerating well vital signs stable on admission and discharge. Vital Signs: Vital Signs Temp Pulse Resp BP 97.7 F L 102 H 16 129/64 H 10/01/21 11:07 10/01/21 11:07 10/01/21 11:07 10/01/21 11:07 Weight: 177 lb Body Mass Index (BMI) 26.9 Lab / Micro Data Labs: Laboratory Results - last 24 hr 10/01/21 10:38: POC Glucose 154 H Assessment/Plan Assessment/Plan (1) Non-pressure 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: CODE(S): L97.212 - Non-pressure 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 (2) 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: CODE(S): L97.512 - 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 (3) Type 2 diabetes mellitus with diabetic polyneuropathy: CODE(S): E11.42 - Type 2 diabetes mellitus with diabetic polyneuropathy QUALIFIERS: Diabetes mellitus supervisor intermediates insulin use: with supervisor intermediates use Qualified Code(s): E11.42 - Type 2 diabetes mellitus with diabetic polyneuropathy; Z79.4 - termite inspector (current) use of 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
[2021-10-01 12:46] LABS: Bedside Glucose 91 mg/dL (74-106)
[2021-10-02 11:29] VITALS: BP 122/68; PULSE 94; RESP 16; TEMP 35.7; BMI 26.9
--- NOTE | 2021-10-02 12:22 | WC ---
cover with wound veil and steri strips
--- NOTE | 2021-10-02 12:26 | PN.PCM_ITS ---
History of Present Illness Date of Service: 10/02/21 Chief Complaint: right foot ulcer and Right Leg wound History of Wound: This 55-year-old female presents for care of right foot wound. She had surgery at [facility] in November 2020. She denies current fever, chill, nausea, vomiting. She denies delays in wound care and has been applying saline wet-to-dry to help with home health. She relates her bone biopsy that was obtained during her foot surgery was negative for osteomyelitis. She has a PICC placed and saw infectious disease specialist, Dr. Paez at [facility]. She relates she is almost complete with her IV antibiotic course. She is offloading with a surgical shoe. She takes nutritional supplementation including vitamin D and B. She denies claudication. She does have rest paresthesias. She is diabetic with an A1c of over 8%. She also has history of back injuries. Since her last visit, she reports she had thick fluid squirting out of the wound with application of her silver dressing. She was concerned it was infected and called in yesterday. She is advised by nursing staff to go to the emergency room if she thought she had a rapid onset infection. She relates she is scheduled to see her surgeon tomorrow. She did not obtain the previously ordered labs and foot x-rays. She denies current redness or odor. Medical records reviewed from and it is noted she had right foot incision and drainage of fifth metatarsal on 12-04-20. Her surgeon was Dr. Blanchard. She is advised wearing AFO brace. It is noted she started on Bactrim and then after the surgery she was placed on IV antibiotics. She later developed an infection of her right foot ulceration and underwent I&D with wide debridement on 05-23-21 and 05-28-[address] Alexandre and Dr. Gonzalez. Cultures were positive for MRSA and Enterococcus and was placed on IV Vancomycin by infectious disease. She was discharged to a intermediate facility with instructions for wound vac application to right anterior leg and lateral right foot and wet to dry Dakin's dressings to the right foot. Allergies: Clindamycin Medications cyclo-Benzapril, NuvaRing, Advil, Cytomel, [place], armodafinil, Singulair, Synthroid, Lyrica Past medical history: diabetes and history of back surgery, ankle surgery, right knee arthroscopy Social history: former smoker and no current tobacco use; quit in 1981 Progress of Wound: Patient tolerated #18 of 30 treatments today for HBO for her diabetic foot wound Subjective Subjective This 55-year-old female who presents to the wound care center for follow-up of her right anterior lower extremity wound. She continues to deny any constitutional symptoms. She continues to deny any pain to the site. She states that her hyperbaric dives are continuing to go well. She states she is taking medications to help syncope episodes secondary to her hyperbaric dives, which is helping. She states she only has 9 dives left. She has no other complaints today. Objective Data Objective Data Vital Signs: Vital Signs Temp Pulse Resp BP 96.2 F L 94 16 122/68 H 10/02/21 11:29 10/02/21 11:29 10/02/21 11:29 10/02/21 11:29 Oxygen Delivery Method Room Air Weight: 80.286 kg Body Mass Index (BMI) 26.9 Lab / Micro Data Labs: Laboratory Results - last 24 hr 10/01/21 12:38: POC Glucose 91 Physical Exam Const alert, oriented x3 and no apparent distress General Appearance: cooperative and comfortable HEENT normocephalic Eyes General Eye: normal appearance of both eyes Neck General: normal visual inspection Lymph Lymphatic: no lymphadenopathy noted and no lymphedema noted Chest inspection of chest normal Resp normal respiratory effort Cardio regular rate and regular rhythm Extremity normal capillary refill and no calf tenderness Skin Skin Narrative: Ulceration site to the right anterior lower extremity. Right lateral foot and medial foot cicatrix noted. Surrounding skin is intact, suppl e, and atrophic. Secondary to previous surgical debridement of an abscess of the foot and anterior compartment of the lower extremity Neuro oriented x3 and moves all extremities Debridement Note Debridement Note Wound debrided: Anterior lower extremity Laterality: Right Wound Grade/Stage: Gonzalez stage III Type of Debridement: Excisional debridement Anesthesia Used: 5% Lidocaine Gel Depth: Down to and including healthy tissue and in the subcutaneous layer Percentage of wound debrided: 100 Instrument Used: #15 blade Tissue Removed: Fibrous, devitalized subcutaneous, biofilm, slough Severity: Fat Layer Exposed Amount of bleeding with debridement: Mild Bleeding Controlled with: Compression and gauze Patient tolerated procedure: Patient tolerated procedure well Post-Debridement Measurements and Additional Note: Post-Debridement Measurements/Treatment WC - Nurse 1 - General Ulcer Assessment Start: 09/22/21 13:22 Freq: Status: Active Protocol: RUKHSANA Activity Type Activity Date Activity User E-Sign Co-Sign Detail Recorded Client Recorded Date Recorded By Document 09/25/21 11:34 LAYLA [id number] 09/25/21 11:43 KR Document 10/02/21 11:29 [facility] [id number] 10/02/21 11:41 [facility] 09/25/21 10/02/21 11:34 11:29 - Today's Visit Information Type of service Follow-up Visit Follow-up Visit (Physician/MAIL PROCESSOR (Physician/MAIL PROCESSOR ) ) Arrival Mode Wheelchair Wheelchair Transfer Assistance Other Transfer Assist (Other) stand by Accompanied by mom Patient Identification Verified (Name & Yes Yes ) Height and Weight Body Mass Index (BMI) 26.9 26.9 BMI Classification Overweight Overweight Vital Signs Temperature (97.8 F-99.1 F) 97.2 F L 96.2 F L Temperature Source Temporal Temporal Pulse Rate (60-100) 94 94 Pulse Location Monitor Monitor Respiratory Rate (12-18) 16 Respiratory rate source Observation Oxygen Delivery Method Room Air Blood Pressure (90/60-120/80) 145/77 H 122/68 H Blood Pressure Mean (mm Hg) 99 86 Source Monitor Monitor Position Semi-Fowlers Sitting Blood Pressure Location Right Arm Left Arm History Since Last Visit- (Skip if this is Patient's initial visit) Have you changed medications since your No No last visit? Any new allergies or adverse reactions No No Had a fall/change in ADL's that may No No increase risk of falls Signs or symptoms of abuse and/or No No neglect since last visit Have you been in the hospital since your No No last visit? Has dressing in place as prescribed No Yes Has compression in place as prescribed Yes Has offloadiing in place as prescribed N/A Experienced any changes in pain level or No management Left Footwear Regular Shoe Right Footwear No Footwear Pain Scale: 0-10 Numeric Is Patient Pain Free? Yes Yes - Nurse 1 - General Ulcer Measurement Start: 09/22/21 13:22 Freq: Status: Active Protocol: Activity Type Activity Date Activity User E-Sign Co-Sign Detail Recorded Client Recorded Date Recorded By Document 09/25/21 11:34 KR [id number] 09/25/21 11:43 KR Document 10/02/21 11:29 [facility] [id number] 10/02/21 11:41 BMF 09/25/21 10/02/21 11:34 11:29 Wound Center Nurse 1 #2 R MID LOWER LEG -Combined with other wound No -Current Size (cm) - Length 6.9 0.1 -Current Size (cm) - Width 2.1 0.1 -Current Size (cm) - Depth 0.1 0.1 -Total Square Cm 14.49 0.01 -Exudate Amt Large -Exudate Type Serosanguineous -Wound Margin Distinct, Outline Attached -Granulation Amt Large (67-100%) -Granulation Quality Red -Necrosis Amt None Present (0 %) -Texture (Marie-wound Skin Appearance) Assessed, Scarring -Moisture (Marie-wound Skin Appearance) No Abnormality, Assessed -Color (Marie-wound Skin Appearance) No Abnormality, Assessed -Temperature (Marie-wound Skin No Abnormality Appearance) (Pt Warm) -Tenderness on Palpation (Marie-wound No Skin Appearance) -Ulcer Cleansing Soap and Water Soap and Water -Foul Odor after Cleansing Yes -Anesthetic Used 4% Lidocaine Solution,5% Lidocaine Gel -Wound Comment(s) theraskin left intact per dr order. washed/ dried leg and marie wound Lower Limb Edema Present Yes Right Calf (cm) 31.5 Right Ankle (cm) 20 WC - Nurse 2 - General Ulcer CM Notes Start: 09/22/21 13:22 Freq: Status: Active Protocol: Activity Type Activity Date Activity User E-Sign Co-Sign Detail Recorded Client Recorded Date Recorded By Document 09/25/21 13:44 PL [id number] 09/25/21 13:46 PL Document 10/02/21 12:07 [id number] 10/02/21 12:13 09/25/21 10/02/21 13:44 12:07 Wound Center Nurse 2 #2 R MID LOWER LEG -Time 12:05 12:08 -Correct Patient Yes Yes -Correct Side, Site, Position Yes Yes -Correct Procedure Yes Yes -Procedure Performed Yes Yes -Type of Procedure Debridement Debridement -Clinical Debridement Subcutaneous Subcutaneous -Tissue Removed Subcutaneous Subcutaneous -Post Debridement (cm) - Length 7.6 7.7 -Post Debridement (cm) - Width 2.1 2.3 -Post Debridement (cm) - Depth 0.1 0.1 -Total Square (Post) (cm) 15.96 17.71 -Area of Debridement (cm) - Length 7.6 7.7 -Area of Debridement (cm) - Width 2.1 2.3 -Total Square (Area) (cm) 15.96 17.71 -Tunneling No No -Undermining/Tunneling No No -Circular Undermining No No -Wound/Ulcer Outcome Not Healed Not Healed -Ulcer Cleansing Rinsed/ Rinsed/ Irrigated with Irrigated with Saline Saline -Foul Odor after Cleansing No No -Bioengineered Tissue Yes No -Type of Bioengineered Tissue Theraskin -Expiration Date 09/24/24 -Product Lot Number [id number] -Percent Used 100 -Bleeding Controlled with Pressure Pressure -Treatment Response Procedure Procedure Tolerated Well Tolerated Well -Offloading No -Debridement - Subq, 1st 20sq cm No Yes -Apply Skin Sub - 1st 25 sq cm - Legs 1 -Theraskin (per sq cm) 26 Pain Scale: 0-10 Numeric Is Patient Pain Free? Yes Yes - Nurse 3 - General Ulcer D/C NN Start: 09/22/21 13:22 Freq: Status: Active Protocol: Activity Type Activity Date Activity User E-Sign Co-Sign Detail Recorded Client Recorded Date Recorded By Document 09/25/21 12:31 VALARIE [id number] 09/25/21 12:33 AK Document 10/02/21 12:20 ND [id number] 10/02/21 12:23 ND 09/25/21 10/02/21 12:31 12:20 Wound Care Nurse 3 #2 R MID LOWER LEG -Ulcer Cleansing Rinsed/ Irrigated with Saline -Foul Odor after Cleansing No No -Negative Pressure Wound Therapy N/A N/A -Primary Dressing Applied Aquacel AG 4x4, Optilok 6.5x10 Optilok 6.5x10 -Aquacel AG 4x4 1 -Optilok 6.5x10 1 1 Right -Lotion applied to leg before No No compression wrap -Multi-Layered Wrap Application Unna Boot - Unna Boot - Right ($) Right ($) Pain Scale: 0-10 Numeric Is Patient Pain Free? Yes Yes - Visit Discharge Discharge Condition Stable Stable Ambulatory Status Ambulatory, Ambulatory Wheelchair Transportation Private Auto Accompanied by mom Medication Reconcilliation completed & Yes Yes provided to patient/care provider Clinical Summary of Care Provided Yes Yes 10/02/21 12:22 Wound Center by Jad Cordova with wound veil and steri strips Initialized on 10/02/21 12:22 - END OF NOTE Assessment/Plan Assessment/Plan (1) Non-pressure 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: CODE(S): L97.212 - Non-pressure 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 (2) 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: CODE(S): L97.512 - 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 (3) Chronic ulcer of right foot due to diabetes mellitus: CODE(S): E11.621 - Type 2 diabetes mellitus with foot ulcer; L97.519 - Non-pressure chronic ulcer of other part of right foot with unspecified severity (4) Type 2 diabetes mellitus with diabetic polyneuropathy: CODE(S): E11.42 - Type 2 diabetes mellitus with diabetic polyneuropathy QUALIFIERS: Diabetes mellitus assistant terminal manager insulin use: with assistant terminal manager use Qualified Code(s): E11.42 - Type 2 diabetes mellitus with diabetic polyneuropathy; Z79.4 - FPC (current) use of insulin (5) Type 2 diabetes mellitus with foot ulcer: CODE(S): E11.621 - Type 2 diabetes mellitus with foot ulcer; L97.509 - Non-pressure chronic ulcer of other part of unspecified foot with unspecified severity QUALIFIERS: Diabetes mellitus assistant terminal manager insulin use: with assistant terminal manager use Qualified Code(s): E11.621 - Type 2 diabetes mellitus with foot ulcer; L97.509 - Non-pressure chronic ulcer of other part of unspecified foot with unspecified severity; Z79.4 - FPC (current) use of insulin (6) Charcot's joint of right foot: CODE(S): M14.671 - Charcot's joint, right ankle and foot (7) Hypothyroidism: CODE(S): E03.9 - Hypothyroidism, unspecified QUALIFIERS: Hypothyroidism type: unspecified Qualified Code(s): E03.9 - Hypothyroidism, unspecified PLAN: This is a 55-year-old female with history of wide I&D and deep debridement of the right foot and ankle from 05/23/2021 and 05/28/[address] Alexand[address] and Dr. Gonzalez, podiatric specialist. She has history of MRSA infection. Her wounds are complicated by diabetes mellitus type 2 with peripheral polyneuropathy, Charcot joint deformity of the right foot, hypothyroidism. She has remained compliant in nonweightbearing status of the right lower extremity. Patient seen and evaluated. She has undergone tube placement for her ears and is continuing her HBO dives, these are going well. The right anterior lower extremity wound is continuing to progress closing at the most proximal and most distal portions with continued new skin coverage. TheraSkin graft is taking well to the wound bed and wound margins. Her wounds demonstrate no localized signs of infection. The surrounding skin is intact and atrophic. This wound is continuing with good progression towards full closure. Right lateral foot wound is healed. The medial right foot wound is healed with a stable cicatrix. TheraSkin graft left in place to the right anterior lower extremity wound. Site was dressed with wound veil and anchored with Steri-Strips. We will continue with Unna boot to the right lower extremity. She is instructed to leave dressings clean, dry, and intact. We will look to apply her last TheraSkin at next visit. I discussed that we will obtain a new set of x-rays of her right foot to evaluate her Charcot deformity and pending these we will consider shoe gear, offloading boot, and bracing options. Physical therapy will also be considered as she has lost a considerable amount of muscle bulk due to her nonweightbearing status. Her right lower extremity anterior wound is a Gonzalez grade 3 at her right lateral foot wound is a Gonzalez grade 3, right medial foot wound Gonzalez grade 3. She underwent a surgical debridement of all 3 of these Gonzalez grade 3 wounds to the right lower extremity on 05/23/2021 to drain a deep abscess and debride necrotic tissue and tendon. She underwent a second debridement procedure on 05/28/2021 to drain deep anterior compartment abscess of the right lower extremity. She had undergone and completed 8 weeks of IV vancomycin and her PICC line was pulled on 07/09/2021. There is no localized signs of infection to any of the right foot wounds. Grafting product is applied to the right anterior wound. She continues to make good progress in her healing status. She is very pleased with her treatment progress. I discussed with her to continue to ensure proper diabetic glycemic control and intake of protein to ensure wound healing and graft take. I reviewed and discussed her case today. Debridement was performed today as noted in the clinical panel to all of the ulcer sites. The following work up and care recommendations were made: Dressing: Leave TheraSkin graft in place with wound veil covering and Unna boot Wash: Do not wash Tissue growth optimization: TheraSkin skin substitute right anterior leg wound Offload: Nonweightbearing right lower extremity with elevation via soft pillows Vascular: Edema: Unna boot will aid in edema control along with elevation of lower extremity Infection: No localized signs of infection Pain: Continue with Motrin and Tylenol extra strength at home Host factors: History of MRSA and Enterococcus infection. Diabetes type 2 with peripheral polyneuropathy, discussed proper glycemic control and intake of protein to ensure wound healing. I answered all the patient's questions. To return to the wound healing center in 1 week or call sooner if the patient has any questions or concerns. Note: [employer] speech recognition fabrication specialist software was used to create portions of this document. Sound-alike and misspelled words, as well as other fabrication specialist errors may be contained in the documentation.
[2021-10-03 10:26] LABS: Bedside Glucose 136 mg/dL (74-106)
[2021-10-03 12:36] LABS: Bedside Glucose 82 mg/dL (74-106)
--- NOTE | 2021-10-03 12:44 | HBO.PN.PCM_ITS ---
History of Present Illness Date of Service: 10/03/21 Chief Complaint: right foot ulcer and Right Leg wound History of Wound: This 55-year-old female presents for care of right foot wound. She had surgery at [facility] in November 2020. She denies current fever, chill, nausea, vomiting. She denies delays in wound care and has been applying saline wet-to-dry to help with home health. She relates her bone biopsy that was obtained during her foot surgery was negative for osteomyelitis. She has a PICC placed and saw infectious disease specialist, Dr. Paez at [facility]. She relates she is almost complete with her IV antibiotic course. She is offloading with a surgical shoe. She takes nutritional supplementation including vitamin D and B. She denies claudication. She does have rest paresthesias. She is diabetic with an A1c of over 8%. She also has history of back injuries. Since her last visit, she reports she had thick fluid squirting out of the wound with application of her silver dressing. She was concerned it was infected and called in yesterday. She is advised by nursing staff to go to the emergency room if she thought she had a rapid onset infection. She relates she is scheduled to see her surgeon tomorrow. She did not obtain the previously ordered labs and foot x-rays. She denies current redness or odor. Medical records reviewed from and it is noted she had right foot incision and drainage of fifth metatarsal on 12-04-20. Her surgeon was Dr. Blanchard. She is advised wearing AFO brace. It is noted she started on Bactrim and then after the surgery she was placed on IV antibiotics. She later developed an infection of her right foot ulceration and underwent I&D with wide debridement on 05-23-21 and 05-28-[address] Alexandre and Dr. Gonzalez. Cultures were positive for MRSA and Enterococcus and was placed on IV Vancomycin by infectious disease. She was discharged to a correction facility with instructions for wound vac application to right anterior leg and lateral right foot and wet to dry Dakin's dressings to the right foot. Allergies: Clindamycin Medications cyclo-Benzapril, NuvaRing, Advil, Cytomel, [place], armodafinil, Singulair, Synthroid, Lyrica Past medical history: diabetes and history of back surgery, ankle surgery, right knee arthroscopy Social history: former smoker and no current tobacco use; quit in 1981 Progress of Wound: Patient tolerated #18 of 30 treatments today for HBO for her diabetic foot wound Subjective Subjective Progress: Today is the 22nd treatment of hyperbaric oxygen therapy. The patient is scheduled for 30 treatments total. Tolerance of hyperbaric oxygen therapy: Hyperbaric oxygen treatment was provided as per the facility's protocol at 2.0 KELLY in 100% oxygen for 90 minutes without air breaks. The patient tolerated hyperbaric oxygen well, without complications or complaints. Upon emergence of the hyperbaric chamber, the patient's vital signs remained stable. Objective Data Objective Data Vital Signs: Vital Signs Temp Pulse Resp BP 96.2 F L 94 16 122/68 H 10/02/21 11:29 10/02/21 11:29 10/02/21 11:29 10/02/21 11:29 Oxygen Delivery Method Room Air Weight: 80.286 kg Body Mass Index (BMI) 26.9 Lab / Micro Data Labs: Laboratory Results - last 24 hr 10/03/21 10:20: POC Glucose 136 H 10/03/21 12:26: POC Glucose 82 Exam Physical Exam Const alert, oriented x3 and no apparent distress Psych mental status grossly normal, thought process normal, cooperative, affect normal and speech normal Nursing Assessment and Debridement Post-Debridement Measurements and Additional Note: Post-Debridement Measurements/Treatment - Nurse 1 - General Ulcer Assessment Start: 09/22/21 13:22 Freq: Status: Active Protocol: WC.LOWEXT Activity Type Activity Date Activity User E-Sign Co-Sign Detail Recorded Client Recorded Date Recorded By Document 10/02/21 11:29 [facility] [id number] 10/02/21 11:41 [facility] 10/02/21 11:29 - Today's Visit Information Type of service Follow-up Visit (Physician/CROP INSURANCE CLAIMS ADJUSTER ) Arrival Mode Wheelchair Transfer Assistance Other Transfer Assist (Other) stand by Accompanied by mom Patient Identification Verified (Name & Yes ) Height and Weight Body Mass Index (BMI) 26.9 BMI Classification Overweight Vital Signs Temperature (97.8 F-99.1 F) 96.2 F L Temperature Source Temporal Pulse Rate (60-100) 94 Pulse Location Monitor Respiratory Rate (12-18) 16 Respiratory rate source Observation Oxygen Delivery Method Room Air Blood Pressure (90/60-120/80) 122/68 H Blood Pressure Mean (mm Hg) 86 Source Monitor Position Sitting Blood Pressure Location Left Arm History Since Last Visit- (Skip if this is Patient's initial visit) Have you changed medications since your No last visit? Any new allergies or adverse reactions No Had a fall/change in ADL's that may No increase risk of falls Signs or symptoms of abuse and/or No neglect since last visit Have you been in the hospital since your No last visit? Has dressing in place as prescribed Yes Has compression in place as prescribed Yes Has offloadiing in place as prescribed N/A Experienced any changes in pain level or No management Pain Scale: 0-10 Numeric Is Patient Pain Free? Yes - Nurse 1 - General Ulcer Measurement Start: 09/22/21 13:22 Freq: Status: Active Protocol: Activity Type Activity Date Activity User E-Sign Co-Sign Detail Recorded Client Recorded Date Recorded By Document 10/02/21 11:29 [facility] [id number] 10/02/21 11:41 [facility] 10/02/21 11:29 Wound Center Nurse 1 #2 R MID LOWER LEG -Combined with other wound No -Current Size (cm) - Length 0.1 -Current Size (cm) - Width 0.1 -Current Size (cm) - Depth 0.1 -Total Square Cm 0.01 -Ulcer Cleansing Soap and Water -Wound Comment(s) theraskin left intact per dr order. washed/ dried leg and rosa wound Lower Limb Edema Present Yes Right Calf (cm) 31.5 Right Ankle (cm) 20 - Nurse 2 - General Ulcer CM Notes Start: 09/22/21 13:22 Freq: Status: Active Protocol: Activity Type Activity Date Activity User E-Sign Co-Sign Detail Recorded Client Recorded Date Recorded By Document 10/02/21 12:07 [id number] 10/02/21 12:13 NATY 10/02/21 12:07 Wound Center Nurse 2 #2 R MID LOWER LEG -Time 12:08 -Correct Patient Yes -Correct Side, Site, Position Yes -Correct Procedure Yes -Procedure Performed Yes -Type of Procedure Debridement -Clinical Debridement Subcutaneous -Tissue Removed Subcutaneous -Post Debridement (cm) - Length 7.7 -Post Debridement (cm) - Width 2.3 -Post Debridement (cm) - Depth 0.1 -Total Square (Post) (cm) 17.71 -Area of Debridement (cm) - Length 7.7 -Area of Debridement (cm) - Width 2.3 -Total Square (Area) (cm) 17.71 -Tunneling No -Undermining/Tunneling No -Circular Undermining No -Wound/Ulcer Outcome Not Healed -Ulcer Cleansing Rinsed/ Irrigated with Saline -Foul Odor after Cleansing No -Bioengineered Tissue No -Bleeding Controlled with Pressure -Treatment Response Procedure Tolerated Well -Offloading No -Debridement - Subq, 1st 20sq cm Yes Pain Scale: 0-10 Numeric Is Patient Pain Free? Yes WC - Nurse 3 - General Ulcer D/C NN Start: 09/22/21 13:22 Freq: Status: Active Protocol: Activity Type Activity Date Activity User E-Sign Co-Sign Detail Recorded Client Recorded Date Recorded By Document 10/02/21 12:20 VALARIE [id number] 10/02/21 12:23 VALARIE 10/02/21 12:20 Wound Care Nurse 3 #2 R MID LOWER LEG -Ulcer Cleansing Rinsed/ Irrigated with Saline -Foul Odor after Cleansing No -Negative Pressure Wound Therapy N/A -Primary Dressing Applied Optilok 6.5x10 -Optilok 6.5x10 1 Right -Lotion applied to leg before No compression wrap -Multi-Layered Wrap Application Unna Boot - Right ($) Pain Scale: 0-10 Numeric Is Patient Pain Free? Yes WC - Visit Discharge Discharge Condition Stable Ambulatory Status Ambulatory Transportation Private Auto Accompanied by mom Medication Reconcilliation completed & Yes provided to patient/care provider Clinical Summary of Care Provided Yes 10/02/21 12:22 Wound Center by Jad Cordova with wound veil and steri strips Initialized on 10/02/21 12:22 - END OF NOTE Assessment/Plan Assessment/Plan (1) Non-pressure 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: CODE(S): L97.212 - Non-pressure 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 (2) 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: CODE(S): L97.512 - 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 (3) Chronic ulcer of right foot due to diabetes mellitus: CODE(S): E11.621 - Type 2 diabetes mellitus with foot ulcer; L97.519 - Non-pressure chronic ulcer of other part of right foot with unspecified severity (4) Type 2 diabetes mellitus with diabetic polyneuropathy: CODE(S): E11.42 - Type 2 diabetes mellitus with diabetic polyneuropathy QUALIFIERS: Diabetes mellitus long term care social worker insulin use: with long term care social worker use Qualified Code(s): E11.42 - Type 2 diabetes mellitus with diabetic polyneuropathy; Z79.4 - jail (current) use of insulin (5) Type 2 diabetes mellitus with foot ulcer: CODE(S): E11.621 - Type 2 diabetes mellitus with foot ulcer; L97.509 - Non-pressure chronic ulcer of other part of unspecified foot with unspecified severity QUALIFIERS: Diabetes mellitus senior care insulin use: with senior care use Qualified Code(s): E11.621 - Type 2 diabetes mellitus with foot ulcer; L97.509 - Non-pressure chronic ulcer of other part of unspecified foot with unspecified severity; Z79.4 - terminal clerk (current) use of insulin (6) Charcot's joint of right foot: CODE(S): M14.671 - Charcot's joint, right ankle and foot (7) Hypothyroidism: CODE(S): E03.9 - Hypothyroidism, unspecified QUALIFIERS: Hypothyroidism type: unspecified Qualified Code(s): E03.9 - Hypothyroidism, unspecified PLAN: The patient appears to be tolerating hyperbaric oxygen therapy well, which will be continued as per their medical treatment plan.
[2021-10-03 13:29] VITALS: BP 116/56; BP 122/55; PULSE 78; PULSE 85; RESP 16; RESP 17; TEMP 36.5
--- NOTE | 2021-10-06 10:37 | HBO.PN.PCM_ITS ---
History of Present Illness Date of Service: 10/06/21 Chief Complaint: right foot ulcer and Right Leg wound History of Wound: This 55-year-old female presents for care of right foot wound. She had surgery at [facility] in November 2020. She denies current fever, chill, nausea, vomiting. She denies delays in wound care and has been applying saline wet-to-dry to help with home health. She relates her bone biopsy that was obtained during her foot surgery was negative for osteomyelitis. She has a PICC placed and saw infectious disease specialist, Dr. Paez at [facility]. She relates she is almost complete with her IV antibiotic course. She is offloading with a surgical shoe. She takes nutritional supplementation including vitamin D and B. She denies claudication. She does have rest paresthesias. She is diabetic with an A1c of over 8%. She also has history of back injuries. Since her last visit, she reports she had thick fluid squirting out of the wound with application of her silver dressing. She was concerned it was infected and called in yesterday. She is advised by nursing staff to go to the emergency room if she thought she had a rapid onset infection. She relates she is scheduled to see her surgeon tomorrow. She did not obtain the previously ordered labs and foot x-rays. She denies current redness or odor. Medical records reviewed from and it is noted she had right foot incision and drainage of fifth metatarsal on 12-04-20. Her surgeon was Dr. Blanchard. She is advised wearing AFO brace. It is noted she started on Bactrim and then after the surgery she was placed on IV antibiotics. She later developed an infection of her right foot ulceration and underwent I&D with wide debridement on 05-23-21 and 05-28-[address] Alexandre and Dr. Gonzalez. Cultures were positive for MRSA and Enterococcus and was placed on IV Vancomycin by infectious disease. She was discharged to a correction facility with instructions for wound vac application to right anterior leg and lateral right foot and wet to dry Dakin's dressings to the right foot. Allergies: Clindamycin Medications cyclo-Benzapril, NuvaRing, Advil, Cytomel, [place], armodafinil, Singulair, Synthroid, Lyrica Past medical history: diabetes and history of back surgery, ankle surgery, right knee arthroscopy Social history: former smoker and no current tobacco use; quit in 1981 Subjective Subjective This Patient presents today for hyperbaric oxygen therapy treatment. Today's session represents the 23rd such session of a planned 30 sessions. Hyperbaric oxygen therapy was administered as per the facility's protocol. Hyperbaric oxygen therapy was administered at 2 forrest for 90 minutes with no air breaks. Patient tolerated hyperbaric oxygen therapy well, without complaints or complications. Upon emergence from the hyperbaric chamber, the patient's vital signs remained stable. Blood glucose measurements were obtained both prior to and following hyperbaric oxygen therapy, and are recorded elsewhere. The joe sanchez was discharged in good condition. Objective Data Objective Data Vital Signs: Vital Signs Temp Pulse Resp BP 97.7 F L 85 17 122/55 H 10/03/21 13:29 10/03/21 13:29 10/03/21 13:29 10/03/21 13:29 Oxygen Delivery Method Room Air Weight: 177 lb Body Mass Index (BMI) 26.9 Exam Physical Exam Const alert, oriented x3 and no apparent distress General Appearance: cooperative and comfortable HEENT normocephalic, head/scalp atraumatic and TM's normal bilaterally HEENT Narrative: Bilateral eustachian tubes intact Tympanic Membrane: TM's normal bilaterally Resp normal respiratory effort Effort and Inspection: able to speak in complete sentences Psych mental status grossly normal, thought process normal, cooperative and affect normal Assessment/Plan Assessment/Plan (1) Chronic ulcer of right foot due to diabetes mellitus: CODE(S): E11.621 - Type 2 diabetes mellitus with foot ulcer; L97.519 - Non-pressure chronic ulcer of other part of right foot with unspecified severity PLAN: The patient appears to be tolerating hyperbaric oxygen therapy well, which will be continued as per the patient's medical plan. (2) Non-pressure 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: CODE(S): L97.212 - Non-pressure 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 (3) 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: CODE(S): L97.512 - 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 (4) Type 2 diabetes mellitus with diabetic polyneuropathy: CODE(S): E11.42 - Type 2 diabetes mellitus with diabetic polyneuropathy QUALIFIERS: Diabetes mellitus keno terminal operator insulin use: with [facility] use Qualified Code(s): E11.42 - Type 2 diabetes mellitus with diabetic polyneuropathy; Z79.4 - correction (current) use of insulin (5) Charcot's joint of right foot: CODE(S): M14.671 - Charcot's joint, right ankle and foot (6) Hypothyroidism: CODE(S): E03.9 - Hypothyroidism, unspecified QUALIFIERS: Hypothyroidism type: unspecified Qualified Code(s): E03.9 - Hypothyroidism, unspecified
[2021-10-06 10:45] LABS: Bedside Glucose 119 mg/dL (74-106)
[2021-10-06 11:01] LABS: Bedside Glucose 116 mg/dL (74-106)
[2021-10-06 11:20] LABS: Bedside Glucose 140 mg/dL (74-106)
[2021-10-06 11:29] VITALS: BP 101/61; BP 114/48; PULSE 66; PULSE 86; RESP 17; TEMP 36.2
[2021-10-06 13:20] LABS: Bedside Glucose 112 mg/dL (74-106)
[2021-10-09 11:32] VITALS: BP 129/70; PULSE 105; RESP 18; TEMP 36.8; BMI 26.9
--- NOTE | 2021-10-09 15:07 | PN.PCM_ITS ---
History of Present Illness Date of Service: 10/09/21 Chief Complaint: right foot ulcer and Right Leg wound History of Wound: This 55-year-old female presents for care of right foot wound. She had surgery at [facility] in November 2020. She denies current fever, chill, nausea, vomiting. She denies delays in wound care and has been applying saline wet-to-dry to help with home health. She relates her bone biopsy that was obtained during her foot surgery was negative for osteomyelitis. She has a PICC placed and saw infectious disease specialist, Dr. Paez at [facility]. She relates she is almost complete with her IV antibiotic course. She is offloading with a surgical shoe. She takes nutritional supplementation including vitamin D and B. She denies claudication. She does have rest paresthesias. She is diabetic with an A1c of over 8%. She also has history of back injuries. Since her last visit, she reports she had thick fluid squirting out of the wound with application of her silver dressing. She was concerned it was infected and called in yesterday. She is advised by nursing staff to go to the emergency room if she thought she had a rapid onset infection. She relates she is scheduled to see her surgeon tomorrow. She did not obtain the previously ordered labs and foot x-rays. She denies current redness or odor. Medical records reviewed from and it is noted she had right foot incision and drainage of fifth metatarsal on 12-04-20. Her surgeon was Dr. Blanchard. She is advised wearing AFO brace. It is noted she started on Bactrim and then after the surgery she was placed on IV antibiotics. She later developed an infection of her right foot ulceration and underwent I&D with wide debridement on 05-23-21 and 05-28-[address] Alexandre and Dr. Gonzalez. Cultures were positive for MRSA and Enterococcus and was placed on IV Vancomycin by infectious disease. She was [facility] a [facility] facility with instructions for wound vac application to right anterior leg and lateral right foot and wet to dry Dakin's dressings to the right foot. Allergies: Clindamycin Medications cyclo-Benzapril, NuvaRing, Advil, Cytomel, [place], armodafinil, Singulair, Synthroid, Lyrica Past medical history: diabetes and history of back surgery, ankle surgery, right knee arthroscopy Social history: former smoker and no current tobacco use; quit in 1981 Progress of Wound: Patient tolerated #18 of 30 treatments today for HBO for her diabetic foot wound Subjective Subjective This 55-year-old female who presents to the wound care center for follow-up of her right anterior lower extremity wound. She continues to deny any constitutional symptoms. She continues to deny any pain to the site. She states that her hyperbaric dives are continuing to go well. She states she is taking medications to help syncope episodes secondary to her hyperbaric dives, which is helping. She states she only has 7 dives left and will dive tomorrow. She has no other complaints today. Objective Data Objective Data Vital Signs: Vital Signs Temp Pulse Resp BP 98.2 F 105 H 18 129/70 H 10/09/21 11:32 10/09/21 11:32 10/09/21 11:32 10/09/21 11:32 Oxygen Delivery Method Room Air Weight: 80.286 kg Body Mass Index (BMI) 26.9 Physical Exam Const alert, oriented x3 and no apparent distress General Appearance: cooperative and comfortable HEENT normocephalic Eyes General Eye: normal appearance of both eyes Neck General: normal visual inspection Lymph Lymphatic: no lymphadenopathy noted and no lymphedema noted Chest inspection of chest normal Resp normal respiratory effort Cardio regular rate and regular rhythm Extremity normal capillary refill and no calf tenderness Skin Skin Narrative: Ulceration site to the right anterior lower extremity. Right lateral foot and medial foot cicatrix noted. Surrounding skin is intact, supple, and atrophic. Secondary to previous surgical debridement of an abscess of the foot and anterior compartment of the lower extremity Neuro oriented x3 and moves all extremities Debridement Note Debridement Note Wound debrided: Right lower extremity anterior Laterality: Right Wound Grade/Stage: Gonzalez stage III Type of Debridement: Excisional debridement Anesthesia Used: 5% Lidocaine Gel Depth: Down to and including healthy tissue and in the subcutaneous layer Percentage of wound debrided: 100 Instrument Used: #15 blade Tissue Removed: Fibrous, devitalized subcutaneous, biofilm, slough Severity: Fat Layer Exposed Amount of bleeding with debridement: Mild Bleeding Controlled with: Compression and gauze Patient tolerated procedure: Patient tolerated procedure well Post-Debridement Measurements and Additional Note: Post-Debridement Measurements/Treatment WC - Nurse 1 - General Ulcer Assessment Start: 09/22/21 13:22 Freq: Status: Active Protocol: WC.LOWEXT Activity Type Activity Date Activity User E-Sign Co-Sign Detail Recorded Client Recorded Date Recorded By Document 09/25/21 11:34 [id number] 09/25/21 11:43 KR Document 10/02/21 11:29 [facility] [id number] 10/02/21 11:41 BM Document 10/09/21 11:32 [facility] [id number] 10/09/21 11:39 [facility] 09/25/21 10/02/21 10/09/21 11:34 11:29 11:32 WC - Today's Visit Information Type of service Follow-up Visit Follow-up Visit Follow-up Visit (Physician/CAFE TEAM MEMBER (Physician/CAFE TEAM MEMBER (Physician/CAFE TEAM MEMBER ) ) ) Arrival Mode Wheelchair Wheelchair Wheelchair Transfer Assistance Other Manual Transfer Assist (Other) stand by Accompanied by mom Patient Identification Verified (Name & Yes Yes Yes ) Patient Requires Transmission-Based No Precautions Height and Weight Body Mass Index (BMI) 26.9 26.9 26.9 BMI Classification Overweight Overweight Overweight Vital Signs Temperature (97.8 F-99.1 F) 97.2 F L 96.2 F L 98.2 F Temperature Source Temporal Temporal Temporal Pulse Rate (60-100) 94 94 105 H Pulse Location Monitor Monitor Monitor Respiratory Rate (12-18) 16 18 Respiratory rate source Observation Observation Oxygen Delivery Method Room Air Blood Pressure (90/60-120/80) 145/77 H 122/68 H 129/70 H Blood Pressure Mean (mm Hg) 99 86 89 Source Monitor Monitor Monitor Position Semi-Fowlers Sitting Semi-Fowlers Blood Pressure Location Right Arm Left Arm Left Arm History Since Last Visit- (Skip if this is Patient's initial visit) Have you changed medications since your No No No last visit? Any new allergies or adverse reactions No No No Had a fall/change in ADL's that may No No No increase risk of falls Signs or symptoms of abuse and/or No No neglect since last visit Have you been in the hospital since your No No No last visit? Has dressing in place as prescribed No Yes Yes Has compression in place as prescribed Yes Yes Has offloadiing in place as prescribed N/A No Experienced any changes in pain level or No No management Left Footwear Regular Shoe Right Footwear No Footwear Pain Scale: 0-10 Numeric Is Patient Pain Free? Yes Yes Yes WC - Nurse 1 - General Ulcer Measurement Start: 09/22/21 13:22 Freq: Status: Active Protocol: Activity Type Activity Date Activity User E-Sign Co-Sign Detail Recorded Client Recorded Date Recorded By Document 09/25/21 11:34 KR [id number] 09/25/21 11:43 KR Document 10/02/21 11:29 [facility] [id number] 10/02/21 11:41 BMF Document 10/09/21 11:32 [facility] [id number] 10/09/21 11:39 BM 09/25/21 10/02/21 10/09/21 11:34 11:29 11:32 Wound Center Nurse 1 #2 R MID LOWER LEG -Combined with other wound No No -Current Size (cm) - Length 6.9 0.1 5.1 -Current Size (cm) - Width 2.1 0.1 1.5 -Current Size (cm) - Depth 0.1 0.1 0.1 -Total Square Cm 14.49 0.01 7.65 -Photo Taken Yes -Tunneling No -Undermining/Tunneling No -Circular Undermining No -Exudate Amt Large Large -Exudate Type Serosanguineous Serosanguineous -Wound Margin Distinct, Distinct, Outline Outline Attached Attached -Granulation Amt Large (67-100%) Medium (34-66%) -Granulation Quality Red [place] -Slough/Fibrin Yes -Necrosis Amt None Present (0 Small (1-33%) %) -Necrotic Tissue Type Adherent Slough -Structure Exposed N/A -Texture (Rosa-wound Skin Appearance) Assessed, Assessed Scarring -Moisture (Rosa-wound Skin Appearance) No Abnormality, Assessed Assessed -Color (Rosa-wound Skin Appearance) No Abnormality, Assessed Assessed -Temperature (Rosa-wound Skin No Abnormality No Abnormality Appearance) (Pt Warm) (Pt Warm) -Tenderness on Palpation (Rosa-wound No No Skin Appearance) -Ulcer Cleansing Soap and Water Soap and Water Wound Cleanser -Foul Odor after Cleansing Yes No -Anesthetic Used 4% Lidocaine 4% Lidocaine Solution,5% Solution Lidocaine Gel -Wound Comment(s) theraskin left intact per dr order. washed/ dried leg and rosa wound Lower Limb Edema Present Yes Yes Right Calf (cm) 31.5 31.7 Right Ankle (cm) 20 19.5 WC - Nurse 2 - General Ulcer CM Notes Start: 09/22/21 13:22 Freq: Status: Active Protocol: Activity Type Activity Date Activity User E-Sign Co-Sign Detail Recorded Client Recorded Date Recorded By Document 09/25/21 13:44 PL [id number] 09/25/21 13:46 PL Document 10/02/21 12:07 [id number] 10/02/21 12:13 JF Document 10/09/21 14:29 PL [id number] 10/09/21 14:31 PL 09/25/21 10/02/21 10/09/21 13:44 12:07 14:29 Wound Center Nurse 2 #2 R MID LOWER LEG -Time 12:05 12:08 12:30 -Correct Patient Yes Yes Yes -Correct Side, Site, Position Yes Yes Yes -Correct Procedure Yes Yes Yes -Procedure Performed Yes Yes Yes -Type of Procedure Debridement Debridement Debridement -Clinical Debridement Subcutaneous Subcutaneous Subcutaneous -Tissue Removed Subcutaneous Subcutaneous Subcutaneous -Post Debridement (cm) - Length 7.6 7.7 4.5 -Post Debridement (cm) - Width 2.1 2.3 2.0 -Post Debridement (cm) - Depth 0.1 0.1 0.2 -Total Square (Post) (cm) 15.96 17.71 9.00 -Area of Debridement (cm) - Length 7.6 7.7 4.5 -Area of Debridement (cm) - Width 2.1 2.3 2.0 -Total Square (Area) (cm) 15.96 17.71 9.00 -Tunneling No No No -Undermining/Tunneling No No No -Circular Undermining No No No -Wound/Ulcer Outcome Not Healed Not Healed Not Healed -Ulcer Cleansing Rinsed/ Rinsed/ Rinsed/ Irrigated with Irrigated with Irrigated with Saline Saline Saline -Foul Odor after Cleansing No No No -Bioengineered Tissue Yes No Yes -Type of Bioengineered Tissue Theraskin Theraskin -Expiration Date 09/24/24 07/05/24 -Product Lot Number [id number] -Percent Used 100 100 -Bleeding Controlled with Pressure Pressure Pressure -Treatment Response Procedure Procedure Procedure Tolerated Well Tolerated Well Tolerated Well -Offloading No -Debridement - Subq, 1st 20sq cm No Yes No -Apply Skin Sub - 1st 25 sq cm - Legs 1 1 -Theraskin (per sq cm) 26 13 Pain Scale: 0-10 Numeric Is Patient Pain Free? Yes Yes Yes - Nurse 3 - General Ulcer D/C NN Start: 09/22/21 13:22 Freq: Status: Active Protocol: Activity Type Activity Date Activity User E-Sign Co-Sign Detail Recorded Client Recorded Date Recorded By Document 09/25/21 12:31 AK [id number] 09/25/21 12:33 AK Document 10/02/21 12:20 AK [id number] 10/02/21 12:23 AK Document 10/09/21 13:34 AK [id number] 10/09/21 13:37 AK 09/25/21 10/02/21 10/09/21 12:31 12:20 13:34 Wound Care Nurse 3 #2 R MID LOWER LEG -Ulcer Cleansing Rinsed/ Irrigated with Saline -Foul Odor after Cleansing No No No -Negative Pressure Wound Therapy N/A N/A N/A -Primary Dressing Applied Aquacel AG 4x4, Optilok 6.5x10 Optilok 6.5x10 Optilok 6.5x10 -Aquacel AG 4x4 1 -Optilok 6.5x10 1 1 1 Right -Lotion applied to leg before No No compression wrap -Multi-Layered Wrap Application Unna Boot - Unna Boot - Unna Boot - Right ($) Right ($) Right ($) Pain Scale: 0-10 Numeric Is Patient Pain Free? 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 (2) 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: CODE(S): L97.512 - 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 (3) Chronic ulcer of right foot due to diabetes mellitus: CODE(S): E11.621 - Type 2 diabetes mellitus with foot ulcer; L97.519 - Non-pressure chronic ulcer of other part of right foot with unspecified severity (4) Type 2 diabetes mellitus with diabetic polyneuropathy: CODE(S): E11.42 - Type 2 diabetes mellitus with diabetic polyneuropathy QUALIFIERS: Diabetes mellitus termite helper insulin use: with nursing home use Qualified Code(s): E11.42 - Type 2 diabetes mellitus with diabetic polyneuropathy; Z79.4 - prison (current) use of insulin (5) Type 2 diabetes mellitus with foot ulcer: CODE(S): E11.621 - Type 2 diabetes mellitus with foot ulcer; L97.509 - Non-pressure chronic ulcer of other part of unspecified foot with unspecified severity QUALIFIERS: Diabetes mellitus termite helper insulin use: with termite helper use Qualified Code(s): E11.621 - Type 2 diabetes mellitus with foot ulcer; L97.509 - Non-pressure chronic ulcer of other part of unspecified foot with unspecified severity; 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 Alexandre and Dr. Gonzaelz, podiatric specialist. She has history of MRSA infection. Her wounds are complicated by diabetes mellitus type 2 with peripheral polyneuropathy, Charcot joint deformity of the right foot, hypothyroidism. She has remained compliant in nonweightbearing status of the right lower extremity. Patient seen and evaluated. She has undergone tube placement for her ears and is continuing her HBO dives, these are going well. The right anterior lower extremity wound is continuing to progress closing at the most proximal and most distal portions with continued new skin coverage. TheraSkin graft is taking well to the wound bed and wound margins. Her wounds demonstrate no localized signs of infection. The surrounding skin is intact and atrophic. This wound is continuing with good progression towards full closure. Right lateral foot wound remains healed. The medial right foot wound remains healed with a stable cicatrix. TheraSkin graft (Application #10) placed to the right anterior lower extremity wound. Site was dressed with wound veil and anchored with Steri-Strips. We will continue with Unna boot to the right lower extremity. She is instructed to leave dressings clean, dry, and intact. She has been approved for 11th Theraskin, if needed. I discussed that we will obtain a new set of x-rays of her right foot to evaluate her Charcot deformity and pending these we will consider shoe gear, offloading boot, and bracing options. Physical therapy will also be considered as she has lost a considerable amount of muscle bulk due to her nonweightbearing status. Her right lower extremity anterior wound is a Gonzalez grade 3 at her right lateral foot wound is a Gonzalez grade 3, right medial foot wound Gonzalez grade 3. She underwent a surgical debridement of all 3 of these Gonzalez grade 3 wounds to the right lower extremity on 05/23/2021 to drain a deep abscess and debride necrotic tissue and tendon. She underwent a second debridement procedure on 05/28/2021 to drain deep anterior compartment abscess of the right lower extremity. She had undergone and completed 8 weeks of IV vancomycin and her PICC line was pulled on 07/09/2021. There is no localized signs of infection to any of the right foot wounds. She continues to make good progress in her healing status. She is very pleased with her treatment progress. I discussed with her to continue to ensure proper diabetic glycemic control and intake of protein to ensure wound healing and graft take. I reviewed and discussed her case today. Debridement was performed today as noted in the clinical panel to all of the ulcer sites. The following work up and care recommendations were made: Dressing: Leave TheraSkin graft in place with wound veil covering and Unna boot Wash: Do not wash Tissue growth optimization: TheraSkin skin substitute right anterior leg wound Offload: Nonweightbearing right lower extremity with elevation via soft pillows Vascular: Edema: Unna boot will aid in edema control along with elevation of lower extremity Infection: No localized signs of infection Pain: Continue with Motrin and Tylenol extra strength at home Host factors: History of MRSA and Enterococcus infection. Diabetes type 2 with peripheral polyneuropathy, discussed proper glycemic control and intake of protein to ensure wound healing. I answered all the patient's questions. To return to the wound healing center in 1 week or call sooner if the patient has any questions or concerns. Note: [employer] speech recognition animal science professor software was used to create portions of this document. Sound-alike and misspelled words, as well as other animal science professor errors may be contained in the documentation.
[2021-10-10 10:36] LABS: Bedside Glucose 123 mg/dL (74-106)
[2021-10-10 10:56] LABS: Bedside Glucose 133 mg/dL (74-106)
[2021-10-10 12:03] VITALS: BP 108/70; BP 125/68; PULSE 74; PULSE 91; RESP 16; TEMP 36.5
[2021-10-10 13:11] LABS: Bedside Glucose 131 mg/dL (74-106)
--- NOTE | 2021-10-10 14:55 | PCM.HBO.PN ---
History of Present Illness Date of Service: 10/10/21 Chief Complaint: right foot ulcer and Right Leg wound History of Wound: This 55-year-old female presents for care of right foot wound. She had surgery at [facility] in November 2020. She denies current fever, chill, nausea, vomiting. She denies delays in wound care and has been applying saline wet-to-dry to help with home health. She relates her bone biopsy that was obtained during her foot surgery was negative for osteomyelitis. She has a PICC placed and saw infectious disease specialist, Dr. Paez at [facility]. She relates she is almost complete with her IV antibiotic course. She is offloading with a surgical shoe. She takes nutritional supplementation including vitamin D and B. She denies claudication. She does have rest paresthesias. She is diabetic with an A1c of over 8%. She also has history of back injuries. Since her last visit, she reports she had thick fluid squirting out of the wound with application of her silver dressing. She was concerned it was infected and called in yesterday. She is advised by nursing staff to go to the emergency room if she thought she had a rapid onset infection. She relates she is scheduled to see her surgeon tomorrow. She did not obtain the previously ordered labs and foot x-rays. She denies current redness or odor. Medical records reviewed from and it is noted she had right foot incision and drainage of fifth metatarsal on 12-04-20. Her surgeon was Dr. Blanchard. She is advised wearing AFO brace. It is noted she started on Bactrim and then after the surgery she was placed on IV antibiotics. She later developed an infection of her right foot ulceration and underwent I&D with wide debridement on 05-23-21 and 05-28-[address] Alexandre and Dr. Gonzalez. Cultures were positive for MRSA and Enterococcus and was placed on IV Vancomycin by infectious disease. She was discharged to a longterm facility with instructions for wound vac application to right anterior leg and lateral right foot and wet to dry Dakin's dressings to the right foot. Allergies: Clindamycin Medications cyclo-Benzapril, NuvaRing, Advil, Cytomel, [place], armodafinil, Singulair, Synthroid, Lyrica Past medical history: diabetes and history of back surgery, ankle surgery, right knee arthroscopy Social history: former smoker and no current tobacco use; quit in 1981 Subjective Subjective This patient presents today for hyperbaric oxygen therapy treatment. Today's session represents the 24th such session of a planned 30 sessions. Hyperbaric oxygen therapy was administered as per the facility's protocol. Hyperbaric oxygen therapy was administered at 2 forrest for 90 minutes with no air breaks. Patient tolerated hyperbaric oxygen therapy well, without complaints or complications. Upon emergence from the hyperbaric chamber, the patient's vital signs remained stable. Blood glucose measurements were obtained both prior to and following hyperbaric oxygen therapy, and are recorded elsewhere. The patient was discharged in good condition. Objective Data Objective Data Vital Signs: Vital Signs Temp Pulse Resp BP 97.7 F L 91 16 125/68 H 10/10/21 12:03 10/10/21 12:03 10/10/21 12:03 10/10/21 12:03 Oxygen Delivery Method Room Air Weight: 80.286 kg Body Mass Index (BMI) 26.9 Lab / Micro Data Labs: Laboratory Results - last 24 hr 10/10/21 10:31: POC Glucose 123 H 10/10/21 10:51: POC Glucose 133 H 10/10/21 12:54: POC Glucose 131 H Exam Physical Exam Const alert, oriented x3 and no apparent distress Psych mental status grossly normal, thought process normal, cooperative, affect normal and speech normal Nursing Assessment and Debridement Post-Debridement Measurements and Additional Note: Post-Debridement Measurements/Treatment WC - Nurse 1 - General Ulcer Assessment Start: 09/22/21 13:22 Freq: Status: Active Protocol: RUKHSANA Activity Type Activity Date Activity User E-Sign Co-Sign Detail Recorded Client Recorded Date Recorded By Document 10/09/21 11:32 [facility] [id number] 10/09/21 11:39 [facility] 10/09/21 11:32 - Today's Visit Information Type of service Follow-up Visit (Physician/REGULATOR ASSEMBLER ) Arrival Mode Wheelchair Transfer Assistance Manual Patient Identification Verified (Name & Yes ) Patient Requires Transmission-Based No Precautions Height and Weight Body Mass Index (BMI) 26.9 BMI Classification Overweight Vital Signs Temperature (97.8 F-99.1 F) 98.2 F Temperature Source Temporal Pulse Rate (60-100) 105 H Pulse Location Monitor Respiratory Rate (12-18) 18 Respiratory rate source Observation Blood Pressure (90/60-120/80) 129/70 H Blood Pressure Mean (mm Hg) 89 Source Monitor Position Semi-Fowlers Blood Pressure Location Left Arm History Since Last Visit- (Skip if this is Patient's initial visit) Have you changed medications since your No last visit? Any new allergies or adverse reactions No Had a fall/change in ADL's that may No increase risk of falls Have you been in the hospital since your No last visit? Has dressing in place as prescribed Yes Has compression in place as prescribed Yes Has offloadiing in place as prescribed No Experienced any changes in pain level or No management Pain Scale: 0-10 Numeric Is Patient Pain Free? Yes WC - Nurse 1 - General Ulcer Measurement Start: 09/22/21 13:22 Freq: Status: Active Protocol: Activity Type Activity Date Activity User E-Sign Co-Sign Detail Recorded Client Recorded Date Recorded By Document 10/09/21 11:32 [facility] [id number] 10/09/21 11:39 [facility] 10/09/21 11:32 Wound Center Nurse 1 #2 R MID LOWER LEG -Combined with other wound No -Current Size (cm) - Length 5.1 -Current Size (cm) - Width 1.5 -Current Size (cm) - Depth 0.1 -Total Square Cm 7.65 -Photo Taken Yes -Tunneling No -Undermining/Tunneling No -Circular Undermining No -Exudate Amt Large -Exudate Type Serosanguineous -Wound Margin Distinct, Outline Attached -Granulation Amt Medium (34-66%) -Granulation Quality [place] -Slough/Fibrin Yes -Necrosis Amt Small (1-33%) -Necrotic Tissue Type Adherent Slough -Structure Exposed N/A -Texture (Marie-wound Skin Appearance) Assessed -Moisture (Marie-wound Skin Appearance) Assessed -Color (Marie-wound Skin Appearance) Assessed -Temperature (Marie-wound Skin No Abnormality Appearance) (Pt Warm) -Tenderness on Palpation (Marie-wound No Skin Appearance) -Ulcer Cleansing Wound Cleanser -Foul Odor after Cleansing No -Anesthetic Used 4% Lidocaine Solution Lower Limb Edema Present Yes Right Calf (cm) 31.7 Right Ankle (cm) 19.5 WC - Nurse 2 - General Ulcer CM Notes Start: 09/22/21 13:22 Freq: Status: Active Protocol: Activity Type Activity Date Activity User E-Sign Co-Sign Detail Recorded Client Recorded Date Recorded By Document 10/09/21 14:29 [address] [id number] 10/09/21 14:31 PL 10/09/21 14:29 Wound Center Nurse 2 #2 R MID LOWER LEG -Time 12:30 -Correct Patient Yes -Correct Side, Site, Position Yes -Correct Procedure Yes -Procedure Performed Yes -Type of Procedure Debridement -Clinical Debridement Subcutaneous -Tissue Removed Subcutaneous -Post Debridement (cm) - Length 4.5 -Post Debridement (cm) - Width 2.0 -Post Debridement (cm) - Depth 0.2 -Total Square (Post) (cm) 9.00 -Area of Debridement (cm) - Length 4.5 -Area of Debridement (cm) - Width 2.0 -Total Square (Area) (cm) 9.00 -Tunneling No -Undermining/Tunneling No -Circular Undermining No -Wound/Ulcer Outcome Not Healed -Ulcer Cleansing Rinsed/ Irrigated with Saline -Foul Odor after Cleansing No -Bioengineered Tissue Yes -Type of Bioengineered Tissue Theraskin -Expiration Date 07/05/24 -Product Lot Number [id number] -Percent Used 100 -Bleeding Controlled with Pressure -Treatment Response Procedure Tolerated Well -Debridement - Subq, 1st 20sq cm No -Apply Skin Sub - 1st 25 sq cm - Legs 1 -Theraskin (per sq cm) 13 Pain Scale: 0-10 Numeric Is Patient Pain Free? Yes WC - Nurse 3 - General Ulcer D/C NN Start: 09/22/21 13:22 Freq: Status: Active Protocol: Activity Type Activity Date Activity User E-Sign Co-Sign Detail Recorded Client Recorded Date Recorded By Document 10/09/21 13:34 [place] [id number] 10/09/21 13:37 [place] 10/09/21 13:34 Wound Care Nurse 3 #2 R MID LOWER LEG -Foul Odor after Cleansing No -Negative Pressure Wound Therapy N/A -Primary Dressing Applied Optilok 6.5x10 -Optilok 6.5x10 1 Right -Multi-Layered Wrap Application Unna Boot - Right ($) Pain Scale: 0-10 Numeric Is Patient Pain Free? Yes WC - Visit Discharge Discharge Condition Stable Ambulatory Status Wheelchair Accompanied by mom Medication Reconcilliation completed & Yes provided to patient/care provider Clinical Summary of Care Provided Yes Assessment/Plan Assessment/Plan (1) Non-pressure 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: CODE(S): L97.212 - Non-pressure 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 (2) 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: CODE(S): L97.512 - 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 (3) Chronic ulcer of right foot due to diabetes mellitus: CODE(S): E11.621 - Type 2 diabetes mellitus with foot ulcer; L97.519 - Non-pressure chronic ulcer of other part of right foot with unspecified severity (4) Type 2 diabetes mellitus with diabetic polyneuropathy: CODE(S): E11.42 - Type 2 diabetes mellitus with diabetic polyneuropathy QUALIFIERS: Diabetes mellitus intermediate manager insulin use: with intermediate manager use Qualified Code(s): E11.42 - Type 2 diabetes mellitus with diabetic polyneuropathy; Z79.4 - [facility] (current) use of insulin (5) Type 2 diabetes mellitus with foot ulcer: CODE(S): E11.621 - Type 2 diabetes mellitus with foot ulcer; L97.509 - Non-pressure chronic ulcer of other part of unspecified foot with unspecified severity QUALIFIERS: Diabetes mellitus halfway insulin use: with intermediate manager use Qualified Code(s): E11.621 - Type 2 diabetes mellitus with foot ulcer; L97.509 - Non-pressure chronic ulcer of other part of unspecified foot with unspecified severity; Z79.4 - [facility] (current) use of insulin (6) Charcot's joint of right foot: CODE(S): M14.671 - Charcot's joint, right ankle and foot (7) Hypothyroidism: CODE(S): E03.9 - Hypothyroidism, unspecified QUALIFIERS: Hypothyroidism type: unspecified Qualified Code(s): E03.9 - Hypothyroidism, unspecified PLAN: The patient appears to be tolerating hyperbaric oxygen therapy well, which will be continued as per their medical treatment plan.
[2021-10-13 10:31] LABS: Bedside Glucose 148 mg/dL (74-106)
--- NOTE | 2021-10-13 10:45 | HBO.PN.PCM_ITS ---
History of Present Illness Date of Service: 10/13/21 Chief Complaint: right foot ulcer and Right Leg wound History of Wound: This 55-year-old female presents for care of right foot wound. She had surgery at [facility] in November 2020. She denies current fever, chill, nausea, vomiting. She denies delays in wound care and has been applying saline wet-to-dry to help with home health. She relates her bone biopsy that was obtained during her foot surgery was negative for osteomyelitis. She has a PICC placed and saw infectious disease specialist, Dr. Paez at [facility]. She relates she is almost complete with her IV antibiotic course. She is offloading with a surgical shoe. She takes nutritional supplementation including vitamin D and B. She denies claudication. She does have rest paresthesias. She is diabetic with an A1c of over 8%. She also has history of back injuries. Since her last visit, she reports she had thick fluid squirting out of the wound with application of her silver dressing. She was concerned it was infected and called in yesterday. She is advised by nursing staff to go to the emergency room if she thought she had a rapid onset infection. She relates she is scheduled to see her surgeon tomorrow. She did not obtain the previously ordered labs and foot x-rays. She denies current redness or odor. Medical records reviewed from and it is noted she had right foot incision and drainage of fifth metatarsal on 12-04-20. Her surgeon was Dr. Blanchard. She is advised wearing AFO brace. It is noted she started on Bactrim and then after the surgery she was placed on IV antibiotics. She later developed an infection of her right foot ulceration and underwent I&D with wide debridement on 05-23-21 and 05-28-[address] Alexandre and Dr. Gonzalez. Cultures were positive for MRSA and Enterococcus and was placed on IV Vancomycin by infectious disease. [facility] with instructions for wound vac application to right anterior leg and lateral right foot and wet to dry Dakin's dressings to the right foot. Allergies: Clindamycin Medications cyclo-Benzapril, NuvaRing, Advil, Cytomel, [place], armodafinil, Singulair, Synthroid, Lyrica Past medical history: diabetes and history of back surgery, ankle surgery, right knee arthroscopy Social history: former smoker and no current tobacco use; quit in 1981 Subjective Subjective This Patient presents today for hyperbaric oxygen therapy treatment. Today's session represents the 25th such session of a planned 30 sessions. Hyperbaric oxygen therapy was administered as per the facility's protocol. Hyperbaric oxygen therapy was administered at 2 forrest for 90 minutes with no air breaks. Patient tolerated hyperbaric oxygen therapy well, without complaints or complications. Upon emergence from the hyperbaric chamber, the patient's vital signs remained stable. Blood glucose measurements were obtained both prior to and following hyperbaric oxygen therapy, and are recorded elsewhere. The joe sanchez was discharged in good condition. Objective Data Objective Data Vital Signs: Vital Signs Temp Pulse Resp BP 97.7 F L 91 16 125/68 H 10/10/21 12:03 10/10/21 12:03 10/10/21 12:03 10/10/21 12:03 Oxygen Delivery Method Room Air Weight: 177 lb Body Mass Index (BMI) 26.9 Lab / Micro Data Labs: Laboratory Results - last 24 hr 10/13/21 10:25: POC Glucose 148 H Exam Physical Exam Const alert, oriented x3 and no apparent distress General Appearance: cooperative and comfortable HEENT normocephalic, head/scalp atraumatic and TM's normal bilaterally HEENT Narrative: Bilateral eustachian tubes intact Tympanic Membrane: TM's normal bilaterally Resp normal respiratory effort Effort and Inspection: able to speak in complete sentences Psych mental status grossly normal, thought process normal, cooperative and affect normal Assessment/Plan Assessment/Plan (1) Chronic ulcer of right foot due to diabetes mellitus: CODE(S): E11.621 - Type 2 diabetes mellitus with foot ulcer; L97.519 - Non-pressure chronic ulcer of other part of right foot with unspecified severity PLAN: The patient appears to be tolerating hyperbaric oxygen therapy well, which will be continued as per the patient's medical plan. (2) Non-pressure 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: CODE(S): L97.212 - Non-pressure 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 (3) 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: CODE(S): L97.512 - 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 (4) Type 2 diabetes mellitus with diabetic polyneuropathy: CODE(S): E11.42 - Type 2 diabetes mellitus with diabetic polyneuropathy QUALIFIERS: Diabetes mellitus care home insulin use: with care home use Qualified Code(s): E11.42 - Type 2 diabetes mellitus with diabetic polyneuropathy; Z79.4 - [facility] (current) use of insulin (5) Charcot's joint of right foot: CODE(S): M14.671 - Charcot's joint, right ankle and foot (6) Hypothyroidism: CODE(S): E03.9 - Hypothyroidism, unspecified QUALIFIERS: Hypothyroidism type: unspecified Qualified Code(s): E03.9 - Hypothyroidism, unspecified
[2021-10-13 12:36] LABS: Bedside Glucose 109 mg/dL (74-106)
[2021-10-13 13:02] VITALS: BP 107/67; BP 122/71; PULSE 72; PULSE 96; RESP 16; RESP 17; TEMP 36.8
[2021-10-15 10:31] LABS: Bedside Glucose 149 mg/dL (74-106)
--- NOTE | 2021-10-15 11:44 | HBO.PN.PCM_ITS ---
History of Present Illness Date of Service: 10/15/21 Chief Complaint: right foot ulcer and Right Leg wound History of Wound: This 55-year-old female presents for care of right foot wound. She had surgery at [facility] in November 2020. She denies current fever, chill, nausea, vomiting. She denies delays in wound care and has been applying saline wet-to-dry to help with home health. She relates her bone biopsy that was obtained during her foot surgery was negative for osteomyelitis. She has a PICC placed and saw infectious disease specialist, Dr. Paez at [facility]. She relates she is almost complete with her IV antibiotic course. She is offloading with a surgical shoe. She takes nutritional supplementation including vitamin D and B. She denies claudication. She does have rest paresthesias. She is diabetic with an A1c of over 8%. She also has history of back injuries. Since her last visit, she reports she had thick fluid squirting out of the wound with application of her silver dressing. She was concerned it was infected and called in yesterday. She is advised by nursing staff to go to the emergency room if she thought she had a rapid onset infection. She relates she is scheduled to see her surgeon tomorrow. She did not obtain the previously ordered labs and foot x-rays. She denies current redness or odor. Medical records reviewed from and it is noted she had right foot incision and drainage of fifth metatarsal on 12-04-20. Her surgeon was Dr. Blanchard. She is advised wearing AFO brace. It is noted she started on Bactrim and then after the surgery she was placed on IV antibiotics. She later developed an infection of her right foot ulceration and underwent I&D with wide debridement on 05-23-21 and 05-28-[address] Alexandre and Dr[address] Gonzalez. Cultures were positive for MRSA and Enterococcus and was placed on IV Vancomycin by infectious disease. She was discharged to a [facility] facility with instructions for wound vac application to right anterior leg and lateral right foot and wet to dry Dakin's dressings to the right foot. Allergies: Clindamycin Medications cyclo-Benzapril, NuvaRing, Advil, Cytomel, [place], armodafinil, Singulair, Synthroid, Lyrica Past medical history: diabetes and history of back surgery, ankle surgery, right knee arthroscopy Social history: former smoker and no current tobacco use; quit in 1981 Progress of Wound: Patient tolerated 26 of 30 treatments today for HBO for her diabetic foot wound Subjective Subjective She has no concerns Objective Data Objective Data Patient has received 26 of 30 treatments today vital signs were stable admission and discharge patient will continue treatments as scheduled Vital Signs: Vital Signs Temp Pulse Resp BP 98.3 F 96 17 122/71 H 10/13/21 13:02 10/13/21 13:02 10/13/21 13:02 10/13/21 13:02 Oxygen Delivery Method Room Air Weight: 177 lb Body Mass Index (BMI) 26.9 Lab / Micro Data Labs: Laboratory Results - last 24 hr 10/15/21 10:26: POC Glucose 149 H Assessment/Plan Assessment/Plan (1) Non-pressure 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: CODE(S): L97.212 - Non-pressure 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 (2) 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: CODE(S): L97.512 - 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 (3) Type 2 diabetes mellitus with diabetic polyneuropathy: CODE(S): E11.42 - Type 2 diabetes mellitus with diabetic polyneuropathy QUALIFIERS: Diabetes mellitus terminal gauger supervisor insulin use: with terminal gauger supervisor use Qualified Code(s): E11.42 - Type 2 diabetes mellitus with diabetic polyneuropathy; Z79.4 - [facility] (current) use of 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
[2021-10-15 12:41] LABS: Bedside Glucose 119 mg/dL (74-106)
[2021-10-15 13:37] VITALS: BP 127/66; BP 131/76; PULSE 72; PULSE 83; RESP 15; RESP 17; TEMP 36.4
[2021-10-16 11:18] VITALS: BP 116/74; PULSE 112; TEMP 36.6; BMI 26.9
--- NOTE | 2021-10-16 13:28 | WC ---
2 Pieces of Theraskin were used on the wound today. 1- 6 SqCm ID#[id number] Exp: 12/15/24 the second piece was 3 Sq Cm ID# [id number] EXP: 08/03/24
--- NOTE | 2021-10-16 18:03 | PCM.WC.PN ---
History of Present Illness Date of Service: 10/16/21 Chief Complaint: right foot ulcer and Right Leg wound History of Wound: This 55-year-old female presents for care of right foot wound. She had surgery at [facility] in November 2020. She denies current fever, chill, nausea, vomiting. She denies delays in wound care and has been applying saline wet-to-dry to help with home health. She relates her bone biopsy that was obtained during her foot surgery was negative for osteomyelitis. She has a PICC placed and saw infectious disease specialist, Dr. Paez at [facility]. She relates she is almost complete with her IV antibiotic course. She is offloading with a surgical shoe. She takes nutritional supplementation including vitamin D and B. She denies claudication. She does have rest paresthesias. She is diabetic with an A1c of over 8%. She also has history of back injuries. Since her last visit, she reports she had thick fluid squirting out of the wound with application of her silver dressing. She was concerned it was infected and called in yesterday. She is advised by nursing staff to go to the emergency room if she thought she had a rapid onset infection. She relates she is scheduled to see her surgeon tomorrow. She did not obtain the previously ordered labs and foot x-rays. She denies current redness or odor. Medical records reviewed from and it is noted she had right foot incision and drainage of fifth metatarsal on 12-04-20. Her surgeon was Dr. Blanchard. She is advised wearing AFO brace. It is noted she started on Bactrim and then after the surgery she was placed on IV antibiotics. She later developed an infection of her right foot ulceration and underwent I&D with wide debridement on 05-23-21 and 05-28-[address] Alexandre and Dr. Gonzalez. Cultures were positive for MRSA and Enterococcus and was placed on IV Vancomycin by infectious disease. She was discharged to a [place] [facility] facility with instructions for wound vac application to right anterior leg and lateral right foot and wet to dry Dakin's dressings to the right foot. Allergies: Clindamycin Medications cyclo-Benzapril, NuvaRing, Advil, Cytomel, Harvard, armodafinil, Singulair, Synthroid, Lyrica Past medical history: diabetes and history of back surgery, ankle surgery, right knee arthroscopy Social history: former smoker and no current tobacco use; quit in 1981 Progress of Wound: Patient tolerated 26 of 30 treatments today for HBO for her diabetic foot wound Subjective Subjective This 55-year-old female who presents to the wound care center for follow-up of her right anterior lower extremity wound. She continues to deny any constitutional symptoms. She continues to deny any pain to the site. She states that her hyperbaric dives are continuing to go well. She states she is taking medications to help syncope episodes secondary to her hyperbaric dives, which is helping. She states she is nearing the end of her hyperbaric dives. She has no other complaints today. Objective Data Objective Data Vital Signs: Vital Signs Temp Pulse Resp BP 97.9 F 112 H 17 116/74 10/16/21 11:18 10/16/21 11:18 10/15/21 13:37 10/16/21 11:18 Oxygen Delivery Method Room Air Weight: 80.286 kg Body Mass Index (BMI) 26.9 Physical Exam Const alert, oriented x3 and no apparent distress General Appearance: cooperative and comfortable HEENT normocephalic Eyes General Eye: normal appearance of both eyes Neck General: normal visual inspection Lymph Lymphatic: no lymphadenopathy noted and no lymphedema noted Chest inspection of chest normal Resp normal respiratory effort Cardio regular rate and regular rhythm Extremity normal capillary refill and no calf tenderness Skin Skin Narrative: Ulceration site to the right anterior lower extremity. Right lateral foot and medial foot cicatrix noted. Surrounding skin is intact, supple, and atrophic. Secondary to previous surgical debridement of an abscess of the foot and anterior compartment of the lower extremity Neuro oriented x3 and moves all extremities Debridement Note Debridement Note Wound debrided: Right lower anterior extremity Laterality: Right Wound Grade/Stage: Gonzalez stage III Type of Debridement: Excisional debridement Anesthesia Used: 5% Lidocaine Gel Depth: Down to and including healthy tissue and in the subcutaneous layer Percentage of wound debrided: 100 Instrument Used: #15 blade Tissue Removed: Fibrous, devitalized subcutaneous, biofilm, slough Severity: Fat Layer Exposed Amount of bleeding with debridement: Mild Bleeding Controlled with: Compression and gauze Patient tolerated procedure: Patient tolerated procedure well Post-Debridement Measurements and Additional Note: Post-Debridement Measurements/Treatment ALISSA - Nurse 1 - General Ulcer Assessment Start: 09/22/21 13:22 Freq: Status: Active Protocol: LOWEXT Activity Type Activity Date Activity User E-Sign Co-Sign Detail Recorded Client Recorded Date Recorded By Document 09/25/21 11:34 LAYLA [id number] 09/25/21 11:43 KR Document 10/02/21 11:29 [facility] [id number] 10/02/21 11:41 [facility] Document 10/09/21 11:32 [facility] [id number] 10/09/21 11:39 [facility] Document 10/16/21 11:18 KR [id number] 10/16/21 11:22 KR 09/25/21 10/02/21 10/09/21 11:34 11:29 11:32 - Today's Visit Information Type of service Follow-up Visit Follow-up Visit Follow-up Visit (Physician/WATERSHED ENGINEER (Physician/WATERSHED ENGINEER (Physician/WATERSHED ENGINEER ) ) ) Arrival Mode Wheelchair Wheelchair Wheelchair Transfer Assistance Other Manual Transfer Assist (Other) stand by Accompanied by mom Patient Identification Verified (Name & Yes Yes Yes ) Patient Requires Transmission-Based No Precautions Height and Weight Body Mass Index (BMI) 26.9 26.9 26.9 BMI Classification Overweight Overweight Overweight Vital Signs Temperature (97.8 F-99.1 F) 97.2 F L 96.2 F L 98.2 F Temperature Source Temporal Temporal Temporal Pulse Rate (60-100) 94 94 105 H Pulse Location Monitor Monitor Monitor Respiratory Rate (12-18) 16 18 Respiratory rate source Observation Observation Oxygen Delivery Method Room Air Blood Pressure (90/60-120/80) 145/77 H 122/68 H 129/70 H Blood Pressure Mean (mm Hg) 99 86 89 Source Monitor Monitor Monitor Position Semi-Fowlers Sitting Semi-Fowlers Blood Pressure Location Right Arm Left Arm Left Arm History Since Last Visit- (Skip if this is Patient's initial visit) Have you changed medications since your No No No last visit? Any new allergies or adverse reactions No No No Had a fall/change in ADL's that may No No No increase risk of falls Signs or symptoms of abuse and/or No No neglect since last visit Have you been in the hospital since your No No No last visit? Has dressing in place as prescribed No Yes Yes Has compression in place as prescribed Yes Yes Has offloadiing in place as prescribed N/A No Experienced any changes in pain level or No No management Left Footwear Regular Shoe Right Footwear No Footwear Pain Scale: 0-10 Numeric Is Patient Pain Free? Yes Yes Yes 10/16/21 11:18 - Today's Visit Information Type of service Follow-up Visit (Physician/WATERSHED ENGINEER ) Arrival Mode Wheelchair Transfer Assistance Transfer Assist (Other) Accompanied by Patient Identification Verified (Name & Yes ) Patient Requires Transmission-Based Precautions Height and Weight Body Mass Index (BMI) 26.9 BMI Classification Overweight Vital Signs Temperature (97.8 F-99.1 F) 97.9 F Temperature Source Temporal Pulse Rate (60-100) 112 H Pulse Location Monitor Respiratory Rate (12-18) Respiratory rate source Oxygen Delivery Method Blood Pressure (90/60-120/80) 116/74 Blood Pressure Mean (mm Hg) 88 Source Monitor Position Sitting Blood Pressure Location Right Arm History Since Last Visit- (Skip if this is Patient's initial visit) Have you changed medications since your No last visit? Any new allergies or adverse reactions No Had a fall/change in ADL's that may No increase risk of falls Signs or symptoms of abuse and/or No neglect since last visit Have you been in the hospital since your No last visit? Has dressing in place as prescribed Yes Has compression in place as prescribed Yes Has offloadiing in place as prescribed N/A Experienced any changes in pain level or No management Left Footwear Right Footwear Pain Scale: 0-10 Numeric Is Patient Pain Free? Yes - Nurse 1 - General Ulcer Measurement Start: 09/22/21 13:22 Freq: Status: Active Protocol: Activity Type Activity Date Activity User E-Sign Co-Sign Detail Recorded Client Recorded Date Recorded By Document 09/25/21 11:34 KR [id number] 09/25/21 11:43 KR Document 10/02/21 11:29 [facility] [id number] 10/02/21 11:41 [facility] Document 10/09/21 11:32 [facility] [id number] 10/09/21 11:39 BM Document 10/16/21 11:18 KR [id number] 10/16/21 11:22 KR 09/25/21 10/02/21 10/09/21 11:34 11:29 11:32 Wound Center Nurse 1 #2 R MID LOWER LEG -Combined with other wound No No -Current Size (cm) - Length 6.9 0.1 5.1 -Current Size (cm) - Width 2.1 0.1 1.5 -Current Size (cm) - Depth 0.1 0.1 0.1 -Total Square Cm 14.49 0.01 7.65 -Photo Taken Yes -Tunneling No -Undermining/Tunneling No -Circular Undermining No -Exudate Amt Large Large -Exudate Type Serosanguineous Serosanguineous -Wound Margin Distinct, Distinct, Outline Outline Attached Attached -Granulation Amt Large (67-100%) Medium (34-66%) -Granulation Quality Red [place] -Slough/Fibrin Yes -Necrosis Amt None Present (0 Small (1-33%) %) -Necrotic Tissue Type Adherent Slough -Structure Exposed N/A -Texture (Marie-wound Skin Appearance) Assessed, Assessed Scarring -Moisture (Marie-wound Skin Appearance) No Abnormality, Assessed Assessed -Color (Marie-wound Skin Appearance) No Abnormality, Assessed Assessed -Temperature (Marie-wound Skin No Abnormality No Abnormality Appearance) (Pt Warm) (Pt Warm) -Tenderness on Palpation (Marie-wound No No Skin Appearance) -Ulcer Cleansing Soap and Water Soap and Water Wound Cleanser -Foul Odor after Cleansing Yes No -Anesthetic Used 4% Lidocaine 4% Lidocaine Solution,5% Solution Lidocaine Gel -Wound Comment(s) theraskin left intact per dr order. washed/ dried leg and marie wound Lower Limb Edema Present Yes Yes Right Calf (cm) 31.5 31.7 Right Ankle (cm) 20 19.5 10/16/21 11:18 Wound Center Nurse 1 #2 R MID LOWER LEG -Combined with other wound -Current Size (cm) - Length 4.5 -Current Size (cm) - Width 2 -Current Size (cm) - Depth 0.2 -Total Square Cm 9.0 -Photo Taken -Tunneling -Undermining/Tunneling -Circular Undermining -Exudate Amt Medium -Exudate Type Serosanguineous -Wound Margin Distinct, Outline Attached -Granulation Amt -Granulation Quality -Slough/Fibrin -Necrosis Amt Large (67-100%) -Necrotic Tissue Type Adherent Slough -Structure Exposed -Texture (Marie-wound Skin Appearance) Assessed, Scarring -Moisture (Marie-wound Skin Appearance) Assessed -Color (Marie-wound Skin Appearance) No Abnormality, Assessed -Temperature (Marie-wound Skin No Abnormality Appearance) (Pt Warm) -Tenderness on Palpation (Marie-wound No Skin Appearance) -Ulcer Cleansing Rinsed/ Irrigated with Saline -Foul Odor after Cleansing No -Anesthetic Used 5% Lidocaine Gel -Wound Comment(s) Lower Limb Edema Present Right Calf (cm) 27.2 Right Ankle (cm) 19.5 WC - Nurse 2 - General Ulcer CM Notes Start: 09/22/21 13:22 Freq: Status: Active Protocol: Activity Type Activity Date Activity User E-Sign Co-Sign Detail Recorded Client Recorded Date Recorded By Document 09/25/21 13:44 PL [id number] 09/25/21 13:46 PL Document 10/02/21 12:07 [id number] 10/02/21 12:13 Document 10/09/21 14:29 PL [id number] 10/09/21 14:31 PL Document 10/16/21 13:23 PL [id number] 10/16/21 13:27 PL 09/25/21 10/02/21 10/09/21 13:44 12:07 14:29 Wound Center Nurse 2 #2 R MID LOWER LEG -Time 12:05 12:08 12:30 -Correct Patient Yes Yes Yes -Correct Side, Site, Position Yes Yes Yes -Correct Procedure Yes Yes Yes -Procedure Performed Yes Yes Yes -Type of Procedure Debridement Debridement Debridement -Clinical Debridement Subcutaneous Subcutaneous Subcutaneous -Tissue Removed Subcutaneous Subcutaneous Subcutaneous -Post Debridement (cm) - Length 7.6 7.7 4.5 -Post Debridement (cm) - Width 2.1 2.3 2.0 -Post Debridement (cm) - Depth 0.1 0.1 0.2 -Total Square (Post) (cm) 15.96 17.71 9.00 -Area of Debridement (cm) - Length 7.6 7.7 4.5 -Area of Debridement (cm) - Width 2.1 2.3 2.0 -Total Square (Area) (cm) 15.96 17.71 9.00 -Tunneling No No No -Undermining/Tunneling No No No -Circular Undermining No No No -Wound/Ulcer Outcome Not Healed Not Healed Not Healed -Ulcer Cleansing Rinsed/ Rinsed/ Rinsed/ Irrigated with Irrigated with Irrigated with Saline Saline Saline -Foul Odor after Cleansing No No No -Bioengineered Tissue Yes No Yes -Type of Bioengineered Tissue Theraskin Theraskin -Expiration Date 09/24/24 07/05/24 -Product Lot Number [id number] -Percent Used 100 100 -Bleeding Controlled with Pressure Pressure Pressure -Treatment Response Procedure Procedure Procedure Tolerated Well Tolerated Well Tolerated Well -Offloading No -Debridement - Subq, 1st 20sq cm No Yes No -Apply Skin Sub - 1st 25 sq cm - Legs 1 1 -Theraskin (per sq cm) 26 13 Pain Scale: 0-10 Numeric Is Patient Pain Free? Yes Yes Yes 10/16/21 13:23 Wound Center Nurse 2 #2 R MID LOWER LEG -Time 11:50 -Correct Patient Yes -Correct Side, Site, Position Yes -Correct Procedure Yes -Procedure Performed Yes -Type of Procedure Debridement -Clinical Debridement Subcutaneous -Tissue Removed Subcutaneous -Post Debridement (cm) - Length 4.6 -Post Debridement (cm) - Width 1.5 -Post Debridement (cm) - Depth 0.1 -Total Square (Post) (cm) 6.90 -Area of Debridement (cm) - Length 4.6 -Area of Debridement (cm) - Width 1.5 -Total Square (Area) (cm) 6.90 -Tunneling No -Undermining/Tunneling No -Circular Undermining No -Wound/Ulcer Outcome Not Healed -Ulcer Cleansing Rinsed/ Irrigated with Saline -Foul Odor after Cleansing No -Bioengineered Tissue Yes -Type of Bioengineered Tissue Theraskin -Expiration Date 12/15/24 -Product Lot Number [id number] -Percent Used 100 -Bleeding Controlled with Pressure -Treatment Response Procedure Tolerated Well -Offloading -Debridement - Subq, 1st 20sq cm No -Apply Skin Sub - 1st 25 sq cm - Legs 1 -Theraskin (per sq cm) 9 Pain Scale: 0-10 Numeric Is Patient Pain Free? Yes - Nurse 3 - General Ulcer D/C NN Start: 09/22/21 13:22 Freq: Status: Active Protocol: Activity Type Activity Date Activity User E-Sign Co-Sign Detail Recorded Client Recorded Date Recorded By Document 09/25/21 12:31 AK [id number] 09/25/21 12:33 AK Document 10/02/21 12:20 AK [id number] 10/02/21 12:23 AK Document 10/09/21 13:34 AK [id number] 10/09/21 13:37 AK Document 10/16/21 12:11 KR [id number] 10/16/21 12:12 KR 09/25/21 10/02/21 10/09/21 12:31 12:20 13:34 Wound Care Nurse 3 #2 R MID LOWER LEG -Ulcer Cleansing Rinsed/ Irrigated with Saline -Foul Odor after Cleansing No No No -Negative Pressure Wound Therapy N/A N/A N/A -Primary Dressing Applied Aquacel AG 4x4, Optilok 6.5x10 Optilok 6.5x10 Optilok 6.5x10 -Other Dressing -Primary Dressing Covered/Secured with -Aquacel AG 4x4 1 -Optilok 6.5x10 1 1 1 Right -Lotion applied to leg before No No compression wrap -Multi-Layered Wrap Application Unna Boot - Unna Boot - Unna Boot - Right ($) Right ($) Right ($) Pain Scale: 0-10 Numeric Is Patient Pain Free? Yes Yes Yes WC - Visit Discharge Discharge Condition Stable Stable Stable Ambulatory Status Ambulatory, Ambulatory Wheelchair Wheelchair Transportation Private Auto Accompanied by mom mom Medication Reconcilliation completed & Yes Yes Yes provided to patient/care provider Clinical Summary of Care Provided Yes Yes Yes 10/16/21 12:11 Wound Care Nurse 3 #2 R MID LOWER LEG -Ulcer Cleansing Rinsed/ Irrigated with Saline -Foul Odor after Cleansing -Negative Pressure Wound Therapy -Primary Dressing Applied -Other Dressing ABD pad -Primary Dressing Covered/Secured with Dry Gauze, Secured with Tape -Aquacel AG 4x4 -Optilok 6.5x10 Right -Lotion applied to leg before compression wrap -Multi-Layered Wrap Application Unna Boot - Right ($) Pain Scale: 0-10 Numeric Is Patient Pain Free? Yes WC - Visit Discharge Discharge Condition Stable Ambulatory Status Wheelchair Transportation Private Auto Accompanied by mom Medication Reconcilliation completed & provided to patient/care provider Clinical Summary of Care Provided 10/02/21 12:22 Wound Center by Jad Cordova cover with wound veil and steri strips Initialized on 10/02/21 12:22 - END OF NOTE Assessment/Plan Assessment/Plan (1) Non-pressure 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: CODE(S): L97.212 - Non-pressure 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 (2) 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: CODE(S): L97.512 - 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 (3) Chronic ulcer of right foot due to diabetes mellitus: CODE(S): E11.621 - Type 2 diabetes mellitus with foot ulcer; L97.519 - Non-pressure chronic ulcer of other part of right foot with unspecified severity (4) Type 2 diabetes mellitus with diabetic polyneuropathy: CODE(S): E11.42 - Type 2 diabetes mellitus with diabetic polyneuropathy QUALIFIERS: Diabetes mellitus chcf insulin use: with longwall machine operator helper use Qualified Code(s): E11.42 - Type 2 diabetes mellitus with diabetic polyneuropathy; Z79.4 - half-way (current) use of insulin (5) Type 2 diabetes mellitus with foot ulcer: CODE(S): E11.621 - Type 2 diabetes mellitus with foot ulcer; L97.509 - Non-pressure chronic ulcer of other part of unspecified foot with unspecified severity QUALIFIERS: Diabetes mellitus chcf insulin use: with longwall machine operator helper use Qualified Code(s): E11.621 - Type 2 diabetes mellitus with foot ulcer; L97.509 - Non-pressure chronic ulcer of other part of unspecified foot with unspecified severity; Z79.4 - terminal make up operator (current) use of insulin (6) Charcot's joint of right foot: CODE(S): M14.671 - Charcot's joint, right ankle and foot (7) Hypothyroidism: CODE(S): E03.9 - Hypothyroidism, unspecified QUALIFIERS: Hypothyroidism type: unspecified Qualified Code(s): E03.9 - Hypothyroidism, unspecified PLAN: This is a 55-year-old female with history of wide I&D and deep debridement of the right foot and ankle from 05/23/2021 and 05/28/[address] Alexandre and Dr. Gonzalez, podiatric specialist. She has history of MRSA infection. Her wounds are complicated by diabetes mellitus type 2 with peripheral polyneuropathy, Charcot joint deformity of the right foot, hypothyroidism. She has remained compliant in nonweightbearing status of the right lower extremity. Patient seen and evaluated. She has undergone tube placement for her ears and is continuing her HBO dives, these are going well. Her right lower extremity anterior wound is a Gonzalez grade 3 at her right lateral foot wound is a Gonzalez grade 3, right medial foot wound Gonzalez grade 3. She underwent a surgical debridement of all 3 of these Gonzalez grade 3 wounds to the right lower extremity on 05/23/2021 to drain a deep abscess and debride necrotic tissue and tendon. She underwent a second debridement procedure on 05/28/2021 to drain deep anterior compartment abscess of the right lower extremity. She had undergone and completed 8 weeks of IV vancomycin and her PICC line was pulled on 07/09/2021. There is no localized signs of infection to any of the right foot wounds. The right anterior lower extremity wound is continuing to progress closing at the most proximal and most distal portions with continued new skin coverage. TheraSkin graft is taking well to the wound bed and wound margins. Her wounds demonstrate no signs of infection. The surrounding skin is intact and atrophic. This wound is continuing with good progression towards full closure. Right lateral foot wound remains healed. The medial right foot wound remains healed with a stable cicatrix. TheraSkin graft (Application #11) placed to the right anterior lower extremity wound. Site was dressed with wound veil and anchored with Steri-Strips. We will continue with Unna boot to the right lower extremity. She is instructed to leave dressings clean, dry, and intact. I discussed that we will obtain a new set of x-rays of her right foot to evaluate her Charcot deformity and pending these we will consider shoe gear, offloading boot, and bracing options. Physical therapy will also be considered as she has lost a considerable amount of muscle bulk due to her nonweightbearing status. She continues to make good progress in her healing status and is very pleased with her treatment progress. I discussed with her to continue to ensure proper diabetic glycemic control and intake of protein to ensure wound healing and graft take. I reviewed and discussed her case today. Debridement was performed today as noted in the clinical panel to all of the ulcer sites. The following work up and care recommendations were made: Dressing: Leave TheraSkin graft in place with wound veil covering and Unna boot Wash: Do not wash Tissue growth optimization: TheraSkin skin substitute right anterior leg wound Offload: Nonweightbearing right lower extremity with elevation via soft pillows Vascular: Edema: Unna boot will aid in edema control along with elevation of lower extremity Infection: No localized signs of infection Pain: Continue with Motrin and Tylenol extra strength at home Host factors: History of MRSA and Enterococcus infection. Diabetes type 2 with peripheral polyneuropathy, discussed proper glycemic control and intake of protein to ensure wound healing. I answered all the patient's questions. To return to the wound healing center in 1 week or call sooner if the patient has any questions or concerns. Note: the grafter speech recognition teacher software was used to create portions of this document. Sound-alike and misspelled words, as well as other teacher errors may be contained in the documentation.
== END 2021-10-21 23:59 | disposition home or self-care (01) ==
LOC: WC 11:15
PROVIDERS: PCP Family Medicine; Visit Provider Student in an Organized Health Care Education/Training Program
DX: E11.621 Type 2 diabetes mellitus with foot ulcer (principal); L97.512 Non-pressure chronic 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; L97.212 Non-pressure 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; E11.42 Type 2 diabetes mellitus with diabetic polyneuropathy; E11.610 Type 2 diabetes mellitus with diabetic neuropathic arthropathy; E03.9 Hypothyroidism, unspecified; Z79.4 Long term (current) use of insulin; Z79.890 Hormone replacement therapy; Z79.899 Other long term (current) drug therapy; Z87.891 Personal history of nicotine dependence
CPT/HCPCS: 11042; 15271; 29580; 82962; 99183; Q4121; G0277

== ENCOUNTER → 2021-11-06 | Outpatient (CLI) | payer MEDICAID, SELFPAY ==
--- NOTE | 2021-11-06 09:53 | RAD_ITS ---
STUDY: X-RAY - RIGHT FOOT CLINICAL: Female, 55 years old. PAIN TECHNIQUE: 3 view(s) of the foot. COMPARISON: Comparison is made with prior study dated 05/20/2021. FINDINGS: There is demineralization of the rear and midfoot bones. Prior ORIF of the distal fibula. Degenerative changes and the sclerotic changes of the tarsal articulations. Normal metatarsi. There is degenerative arthrosis of the metatarsophalangeal joint of the hallux . Normal tibial and fibular sesamoid bones. Normal interphalangeal joint of the great toe. Normal phalanges of the great toe. Normal second through fifth metatarsophalangeal joints. Normal interphalangeal joints and phalanges of the lesser toes. Soft tissue swelling. RAD/Foot min 3 Views IMPRESSION: Stable examination. Electronically Signed: Sal Mcneal MD at 10:52 EDT ,
--- NOTE | 2021-11-06 09:53 | RAD_ITS ---
STUDY: X-RAY - RIGHT ANKLE REASON FOR EXAM: Female, 55 years old. PAIN TECHNIQUE: 3 view(s) of the ankle. COMPARISON: None. FINDINGS: The patient is status post open reduction and internal fixation of the distal fibula using screw and sideplate fixation device. Normal tibiotalar articulation and ankle mortise. Normal visualized talus and calcaneus. Demineralization of the distal fibula and tibia. Degenerative changes of the tarsal articulations. Mild persistent soft tissue swelling. RAD/Ankle min 3 Views IMPRESSION: Status post ORIF of the distal fibula with mild degree of persistent soft tissue swelling. Degenerative changes at the level of the tarsal joints. Electronically Signed: Sal Mcnela MD at 10:51 EDT ,
== END | disposition home or self-care (01) ==
PROVIDERS: PCP Family Medicine; Visit Provider Student in an Organized Health Care Education/Training Program
DX: M14.671 Charcot's joint, right ankle and foot (principal)
CPT/HCPCS: 73610; 73630

== ENCOUNTER 2021-11-20 11:30 | Outpatient (RCR) | payer MEDICAID, SELFPAY ==
[2021-10-22 00:31] VITALS: BP 116/74; PULSE 112; RESP 17; TEMP 36.6; BMI 26.9
[2021-10-22 09:36] LABS: Bedside Glucose 145 mg/dL (74-106)
[2021-10-22 10:08] VITALS: BP 125/69; BP 128/75; PULSE 84; PULSE 97; RESP 15; RESP 16; TEMP 37
[2021-10-22 11:45] LABS: Bedside Glucose 132 mg/dL (74-106)
--- NOTE | 2021-10-22 12:20 | PCM.HBO.PN ---
History of Present Illness Date of Service: 10/22/21 Chief Complaint: right foot ulcer and Right Leg wound History of Wound: This 55-year-old female presents for care of right foot wound. She had surgery at [facility] in November 2020. She denies current fever, chill, nausea, vomiting. She denies delays in wound care and has been applying saline wet-to-dry to help with home health. She relates her bone biopsy that was obtained during her foot surgery was negative for osteomyelitis. She has a PICC placed and saw infectious disease specialist, Dr. Paez at [facility]. She relates she is almost complete with her IV antibiotic course. She is offloading with a surgical shoe. She takes nutritional supplementation including vitamin D and B. She denies claudication. She does have rest paresthesias. She is diabetic with an A1c of over 8%. She also has history of back injuries. Since her last visit, she reports she had thick fluid squirting out of the wound with application of her silver dressing. She was concerned it was infected and called in yesterday. She is advised by nursing staff to go to the emergency room if she thought she had a rapid onset infection. She relates she is scheduled to see her surgeon tomorrow. She did not obtain the previously ordered labs and foot x-rays. She denies current redness or odor. Medical records reviewed from and it is noted she had right foot incision and drainage of fifth metatarsal on 12-04-20. Her surgeon was Dr. Blanchard. She is advised wearing AFO brace. It is noted she started on Bactrim and then after the surgery she was placed on IV antibiotics. She later developed an infection of her right foot ulceration and underwent I&D with wide debridement on 05-23-21 and 05-28-[address] Alexandre and Dr. Gonzalez. Cultures were positive for MRSA and Enterococcus and was placed on IV Vancomycin by infectious disease. She was discharged to a care home facility with instructions for wound vac application to right anterior leg and lateral right foot and wet to dry Dakin's dressings to the right foot. Allergies: Clindamycin Medications cyclo-Benzapril, NuvaRing, Advil, Cytomel, [place], armodafinil, Singulair, Synthroid, Lyrica Past medical history: diabetes and history of back surgery, ankle surgery, right knee arthroscopy Social history: former smoker and no current tobacco use; quit in 1981 Subjective Subjective No concerns today Objective Data Objective Data Patient is receiving #27 of 30 HBO treatments tolerating well vital signs stable admission and discharge Vital Signs: Vital Signs Temp Pulse Resp BP 98.6 F 97 16 125/69 H 10/22/21 10:08 10/22/21 10:08 10/22/21 10:08 10/22/21 10:08 Weight: 177 lb Body Mass Index (BMI) 26.9 Lab / Micro Data Attestation: I reviewed the patient's lab results. Labs: Laboratory Results - last 24 hr 10/22/21 09:33: POC Glucose 145 H 10/22/21 11:42: POC Glucose 132 H Assessment/Plan Assessment/Plan (1) Chronic ulcer of right foot due to diabetes mellitus: CODE(S): E11.621 - Type 2 diabetes mellitus with foot ulcer; L97.519 - Non-pressure chronic ulcer of other part of right foot with unspecified severity (2) Non-pressure 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: CODE(S): L97.212 - Non-pressure 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 (3) 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: CODE(S): L97.512 - 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 (4) Type 2 diabetes mellitus with diabetic polyneuropathy: CODE(S): E11.42 - Type 2 diabetes mellitus with diabetic polyneuropathy QUALIFIERS: Diabetes mellitus long term care pharmacist insulin use: with long term care pharmacist use Qualified Code(s): E11.42 - Type 2 diabetes mellitus with diabetic polyneuropathy; Z79.4 - exterminator termite (current) use of insulin (5) Charcot's joint of right foot: CODE(S): M14.671 - Charcot's joint, right ankle and foot (6) Hypothyroidism: CODE(S): E03.9 - Hypothyroidism, unspecified QUALIFIERS: Hypothyroidism type: unspecified Qualified Code(s): E03.9 - Hypothyroidism, unspecified PLAN: Patient will continue HBO treatments as ordered and scheduled as long as vital signs and blood sugars are stable
[2021-10-23 11:19] VITALS: BP 108/58; PULSE 93; TEMP 36.3; BMI 26.9
--- NOTE | 2021-10-23 18:52 | PCM.WC.PN ---
History of Present Illness Date of Service: 10/23/21 Chief Complaint: right foot ulcer and Right Leg wound History of Wound: This 55-year-old female presents for care of right foot wound. She had surgery at [facility] in November 2020. She denies current fever, chill, nausea, vomiting. She denies delays in wound care and has been applying saline wet-to-dry to help with home health. She relates her bone biopsy that was obtained during her foot surgery was negative for osteomyelitis. She has a PICC placed and saw infectious disease specialist, Dr. Paez at [facility]. She relates she is almost complete with her IV antibiotic course. She is offloading with a surgical shoe. She takes nutritional supplementation including vitamin D and B. She denies claudication. She does have rest paresthesias. She is diabetic with an A1c of over 8%. She also has history of back injuries. Since her last visit, she reports she had thick fluid squirting out of the wound with application of her silver dressing. She was concerned it was infected and called in yesterday. She is advised by nursing staff to go to the emergency room if she thought she had a rapid onset infection. She relates she is scheduled to see her surgeon tomorrow. She did not obtain the previously ordered labs and foot x-rays. She denies current redness or odor. Medical records reviewed from and it is noted she had right foot incision and drainage of fifth metatarsal on 12-04-20. Her surgeon was Dr. Blanchard. She is advised wearing AFO brace. It is noted she started on Bactrim and then after the surgery she was placed on IV antibiotics. She later developed an infection of her right foot ulceration and underwent I&D with wide debridement on 05-23-21 and 05-28-[address] Alexandre and Dr. Gonzalez. Cultures were positive for MRSA and Enterococcus and was placed on IV Vancomycin by infectious disease. She was discharged to a longterm facility with instructions for wound vac application to right anterior leg and lateral right foot and wet to dry Dakin's dressings to the right foot. Allergies: Clindamycin Medications cyclo-Benzapril, NuvaRing, Advil, Cytomel, [place], armodafinil, Singulair, Synthroid, Lyrica Past medical history: diabetes and history of back surgery, ankle surgery, right knee arthroscopy Social history: former smoker and no current tobacco use; quit in 1981 Subjective Subjective This is a 55-year-old female who presents to the wound care center for follow-up of a right anterior lower extremity wound. She continues to deny any constitutional symptoms. She continues to deny any pain to the site. She states that her hyperbaric dives are continuing to go well and she is nearing completion. She has no further complaints today. Objective Data Objective Data Vital Signs: Vital Signs Temp Pulse Resp BP 97.4 F L 93 16 108/58 L 10/23/21 11:19 10/23/21 11:19 10/22/21 10:08 10/23/21 11:19 Weight: 80.286 kg Body Mass Index (BMI) 26.9 Physical Exam Const alert, oriented x3 and no apparent distress General Appearance: cooperative and comfortable HEENT normocephalic Eyes General Eye: normal appearance of both eyes Neck General: normal visual inspection Lymph Lymphatic: no lymphadenopathy noted and no lymphedema noted Resp normal respiratory effort Cardio regular rate and regular rhythm Extremity normal capillary refill, no joint enlargement, no calf tenderness and no pedal edema Skin no rashes or lesions noted, skin turgor normal and no jaundice Wound Narrative: Ulceration site to the right anterior lower extremity. Right lateral foot and medial foot cicatrix noted. Surrounding skin is intact, supple, and atrophic. Ulcerative site is secondary to a previous surgical debridement of an abscess of the foot and anterior compartment of the lower extremity. Ulcerative site demonstrates no localized signs of infection. Neuro oriented x3 and moves all extremities Debridement Note Debridement Note No debridement was completed: No debridement was completed today Post-Debridement Measurements and Additional Note: Post-Debridement Measurements/Treatment - Nurse 1 - General Ulcer Assessment Start: 10/22/21 10:08 Freq: Status: Active Protocol: [email or web address] Activity Type Activity Date Activity User E-Sign Co-Sign Detail Recorded Client Recorded Date Recorded By Document 10/23/21 11:19 LAYLA [id number] 10/23/21 11:22 LAYLA 10/23/21 11:19 - Today's Visit Information Type of service Follow-up Visit (Physician/RN FIELD CASE MANAGER ) Arrival Mode Wheelchair Patient Identification Verified (Name & Yes ) Height and Weight Body Mass Index (BMI) 26.9 BMI Classification Overweight Vital Signs Temperature (97.8 F-99.1 F) 97.4 F L Temperature Source Temporal Pulse Rate (60-100) 93 Pulse Location Monitor Blood Pressure (90/60-120/80) 108/58 L Blood Pressure Mean (mm Hg) 74 Source Monitor Position Semi-Fowlers Blood Pressure Location Left Arm History Since Last Visit- (Skip if this is Patient's initial visit) Have you changed medications since your No last visit? Any new allergies or adverse reactions No Had a fall/change in ADL's that may No increase risk of falls Signs or symptoms of abuse and/or No neglect since last visit Have you been in the hospital since your No last visit? Has dressing in place as prescribed Yes Has compression in place as prescribed Yes Has offloadiing in place as prescribed N/A Experienced any changes in pain level or No management Left Footwear Regular Shoe Right Footwear No Footwear Pain Scale: 0-10 Numeric Is Patient Pain Free? Yes - Nurse 1 - General Ulcer Measurement Start: 10/22/21 10:08 Freq: Status: Active Protocol: Activity Type Activity Date Activity User E-Sign Co-Sign Detail Recorded Client Recorded Date Recorded By Document 10/23/21 11:19 KR [id number] 10/23/21 11:22 KR 10/23/21 11:19 Wound Center Nurse 1 #2 R MID LOWER LEG -Current Size (cm) - Length 0.1 -Current Size (cm) - Width 0.1 -Current Size (cm) - Depth 0.1 -Total Square Cm 0.01 Right Calf (cm) 30 Right Ankle (cm) 19 - Nurse 3 - General Ulcer D/C NN Start: 10/22/21 10:08 Freq: Status: Active Protocol: Activity Type Activity Date Activity User E-Sign Co-Sign Detail Recorded Client Recorded Date Recorded By Document 10/23/21 15:04 [address] [id number] 10/23/21 15:04 PL 10/23/21 15:04 Wound Care Nurse 3 Right -Multi-Layered Wrap Application Unna Boot - Right ($) Pain Scale: 0-10 Numeric Is Patient Pain Free? Yes Assessment/Plan Assessment/Plan (1) Non-pressure 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: CODE(S): L97.212 - Non-pressure 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 (2) 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: CODE(S): L97.512 - 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 (3) Chronic ulcer of right foot due to diabetes mellitus: CODE(S): E11.621 - Type 2 diabetes mellitus with foot ulcer; L97.519 - Non-pressure chronic ulcer of other part of right foot with unspecified severity (4) Type 2 diabetes mellitus with diabetic polyneuropathy: CODE(S): E11.42 - Type 2 diabetes mellitus with diabetic polyneuropathy QUALIFIERS: Diabetes mellitus halfway insulin use: with halfway use Qualified Code(s): E11.42 - Type 2 diabetes mellitus with diabetic polyneuropathy; Z79.4 - longterm (current) use of insulin (5) Type 2 diabetes mellitus with foot ulcer: CODE(S): E11.621 - Type 2 diabetes mellitus with foot ulcer; L97.509 - Non-pressure chronic ulcer of other part of unspecified foot with unspecified severity QUALIFIERS: Diabetes mellitus halfway insulin use: with manager of global use Qualified Code(s): E11.621 - Type 2 diabetes mellitus with foot ulcer; L97.509 - Non-pressure chronic ulcer of other part of unspecified foot with unspecified severity; Z79.4 - longterm (current) use of insulin (6) Charcot's joint of right foot: CODE(S): M14.671 - Charcot's joint, right ankle and foot (7) Hypothyroidism: CODE(S): E03.9 - Hypothyroidism, unspecified QUALIFIERS: Hypothyroidism type: unspecified Qualified Code(s): E03.9 - Hypothyroidism, unspecified PLAN: This is a 55-year-old female with history of wide I&D and deep debridement of the right foot and ankle from 05/23/2021 and 05/28/[address] Alexand[address] and Dr. Gonzalez, podiatric specialist. She has history of MRSA infection. Her wounds are complicated by diabetes mellitus type 2 with peripheral polyneuropathy, Charcot joint deformity of the right foot, hypothyroidism. She has remained compliant in nonweightbearing status of the right lower extremity. Patient seen and evaluated. She has undergone tube placement for her ears and is continuing her HBO dives, these are going well. She is nearing completion of HBO dive. Her right lower extremity anterior wound is a Gonzalez grade 3 at her right lateral foot wound is a Gonzalez grade 3, right medial foot wound Gonzalez grade 3. She underwent a surgical debridement of all 3 of these Gonzalez grade 3 wounds to the right lower extremity on 05/23/2021 to drain a deep abscess and debride necrotic tissue and tendon. She underwent a second debridement procedure on 05/28/2021 to drain deep anterior compartment abscess of the right lower extremity. She had undergone and completed 8 weeks of IV vancomycin and her PICC line was pulled on 07/09/2021. There is no localized signs of infection to any of the right foot wounds. The right anterior lower extremity wound is continuing to progress closing at the most proximal and most distal portions with continued new skin coverage. TheraSkin graft is taking well to the wound bed and wound margins. Her wounds demonstrate no signs of infection. The surrounding skin is intact and atrophic. This wound is continuing with good progression towards full closure. Right lateral foot wound remains healed. The medial right foot wound remains healed with a stable cicatrix. TheraSkin graft (Application #11) placed placed last week was left intact this week to the right anterior lower extremity wound. Site was dressed with wound veil and anchored with Steri-Strips. We will continue with Unna boot to the right lower extremity. She is instructed to leave dressings clean, dry, and intact. I discussed that we will obtain a new set of x-rays of her right foot to evaluate her Charcot deformity and pending these we will consider shoe gear, offloading boot, and bracing options. Physical therapy will also be considered as she has lost a considerable amount of muscle bulk due to her nonweightbearing status. She continues to make good progress in her healing status and is very pleased with her treatment progress. I discussed with her to continue to ensure proper diabetic glycemic control and intake of protein to ensure wound healing and graft take. I reviewed and discussed her case today. No Debridement was performed today as noted in the clinical panel to all of the ulcer sites. The following work up and care recommendations were made: Dressing: Leave TheraSkin graft in place with wound veil covering and Unna boot Wash: Do not wash Tissue growth optimization: TheraSkin skin substitute right anterior leg wound Offload: Nonweightbearing right lower extremity with elevation via soft pillows Vascular: Edema: Unna boot will aid in edema control along with elevation of lower extremity Infection: No localized signs of infection Pain: Continue with Motrin and Tylenol extra strength at home Host factors: History of MRSA and Enterococcus infection. Diabetes type 2 with peripheral polyneuropathy, discussed proper glycemic control and intake of protein to ensure wound healing. I answered all the patient's questions. To return to the wound healing center in 1 week or call sooner if the patient has any questions or concerns. Note: [employer] speech recognition carpenter supervisor software was used to create portions of this document. Sound-alike and misspelled words, as well as other carpenter supervisor errors may be contained in the documentation.
[2021-10-24 10:00] LABS: Bedside Glucose 123 mg/dL (74-106)
[2021-10-24 10:21] LABS: Bedside Glucose 134 mg/dL (74-106)
[2021-10-24 11:41] VITALS: BP 116/63; BP 137/63; PULSE 72; PULSE 87; RESP 16; RESP 17; TEMP 36.2
[2021-10-24 12:25] LABS: Bedside Glucose 155 mg/dL (74-106)
--- NOTE | 2021-10-24 13:50 | HBO.PN.PCM_ITS ---
History of Present Illness Date of Service: 10/24/21 Chief Complaint: right foot ulcer and Right Leg wound History of Wound: This 55-year-old female presents for care of right foot wound. She had surgery at [facility] in November 2020. She denies current fever, chill, nausea, vomiting. She denies delays in wound care and has been applying saline wet-to-dry to help with home health. She relates her bone biopsy that was obtained during her foot surgery was negative for osteomyelitis. She has a PICC placed and saw infectious disease specialist, Dr. Paez at [facility]. She relates she is almost complete with her IV antibiotic course. She is offloading with a surgical shoe. She takes nutritional supplementation including vitamin D and B. She denies claudication. She does have rest paresthesias. She is diabetic with an A1c of over 8%. She also has history of back injuries. Since her last visit, she reports she had thick fluid squirting out of the wound with application of her silver dressing. She was concerned it was infected and called in yesterday. She is advised by nursing staff to go to the emergency room if she thought she had a rapid onset infection. She relates she is scheduled to see her surgeon tomorrow. She did not obtain the previously ordered labs and foot x-rays. She denies current redness or odor. Medical records reviewed from and it is noted she had right foot incision and drainage of fifth metatarsal on 12-04-20. Her surgeon was Dr. Blanchard. She is advised wearing AFO brace. It is noted she started on Bactrim and then after the surgery she was placed on IV antibiotics. She later developed an infection of her right foot ulceration and underwent I&D with wide debridement on 05-23-21 and 05-28-[address] Alexandre and Dr. Gonzalez. Cultures were positive for MRSA and Enterococcus and was placed on IV Vancomycin by infectious disease. She was discharged to a fpc facility with instructions for wound vac application to right anterior leg and lateral right foot and wet to dry Dakin's dressings to the right foot. Allergies: Clindamycin Medications cyclo-Benzapril, NuvaRing, Advil, Cytomel, [place], armodafinil, Singulair, Synthroid, Lyrica Past medical history: diabetes and history of back surgery, ankle surgery, right knee arthroscopy Social history: former smoker and no current tobacco use; quit in 1981 Subjective Subjective Phylicia presents today for hyperbaric oxygen therapy treatment. Today's session represents the 28th such session of a planned 30 sessions. Hyperbaric oxygen therapy was administered as per the facility's protocol. Hyperbaric oxygen therapy was administered at 2 forrest for 90 minutes with no air breaks. Patient tolerated hyperbaric oxygen therapy well, without complaints or complications. Upon emergence from the hyperbaric chamber, the patient's vital signs remained stable. Blood glucose measurements were obtained both prior to and following hyperbaric oxygen therapy, and are recorded elsewhere. Post-treatment she had some crackling sensation in her right ear without any pain. Her tubes were removed approx. 5 days ago. Her TM was intact and nonerythematous but there was some fluid visible behind TM. The patient was discharged in good condition. Objective Data Objective Data Vital Signs: Vital Signs Temp Pulse Resp BP 97.2 F L 87 17 137/63 H 10/24/21 11:41 10/24/21 11:41 10/24/21 11:41 10/24/21 11:41 Weight: 80.286 kg Body Mass Index (BMI) 26.9 Lab / Micro Data Labs: Laboratory Results - last 24 hr 10/24/21 09:57: POC Glucose 123 H 10/24/21 10:15: POC Glucose 134 H 10/24/21 12:18: POC Glucose 155 H Exam Physical Exam Const alert, oriented x3 and no apparent distress HEENT EAC's normal HEENT Narrative: R TM with clear fluid with air fluid levels present but without bulging or erythema Psych mental status grossly normal, thought process normal, cooperative, affect normal and speech normal Nursing Assessment and Debridement Post-Debridement Measurements and Additional Note: Post-Debridement Measurements/Treatment WC - Nurse 1 - General Ulcer Assessment Start: 10/22/21 10:08 Freq: Status: Active Protocol: RUKHSANA Activity Type Activity Date Activity User E-Sign Co-Sign Detail Recorded Client Recorded Date Recorded By Document 10/23/21 11:19 LAYLA [id number] 10/23/21 11:22 LAYLA 10/23/21 11:19 - Today's Visit Information Type of service Follow-up Visit (Physician/OVERLOCKER ) Arrival Mode Wheelchair Patient Identification Verified (Name & Yes ) Height and Weight Body Mass Index (BMI) 26.9 BMI Classification Overweight Vital Signs Temperature (97.8 F-99.1 F) 97.4 F L Temperature Source Temporal Pulse Rate (60-100) 93 Pulse Location Monitor Blood Pressure (90/60-120/80) 108/58 L Blood Pressure Mean (mm Hg) 74 Source Monitor Position Semi-Fowlers Blood Pressure Location Left Arm History Since Last Visit- (Skip if this is Patient's initial visit) Have you changed medications since your No last visit? Any new allergies or adverse reactions No Had a fall/change in ADL's that may No increase risk of falls Signs or symptoms of abuse and/or No neglect since last visit Have you been in the hospital since your No last visit? Has dressing in place as prescribed Yes Has compression in place as prescribed Yes Has offloadiing in place as prescribed N/A Experienced any changes in pain level or No management Left Footwear Regular Shoe Right Footwear No Footwear Pain Scale: 0-10 Numeric Is Patient Pain Free? Yes - Nurse 1 - General Ulcer Measurement Start: 10/22/21 10:08 Freq: Status: Active Protocol: Activity Type Activity Date Activity User E-Sign Co-Sign Detail Recorded Client Recorded Date Recorded By Document 10/23/21 11:19 [id number] 10/23/21 11:22 KR 10/23/21 11:19 Wound Center Nurse 1 #2 R MID LOWER LEG -Current Size (cm) - Length 0.1 -Current Size (cm) - Width 0.1 -Current Size (cm) - Depth 0.1 -Total Square Cm 0.01 Right Calf (cm) 30 Right Ankle (cm) 19 - Nurse 3 - General Ulcer D/C NN Start: 10/22/21 10:08 Freq: Status: Active Protocol: Activity Type Activity Date Activity User E-Sign Co-Sign Detail Recorded Client Recorded Date Recorded By Document 10/23/21 15:04 RAQUEL [id number] 10/23/21 15:04 PL 10/23/21 15:04 Wound Care Nurse 3 Right -Multi-Layered Wrap Application Unna Boot - Right ($) Pain Scale: 0-10 Numeric Is Patient Pain Free? Yes Assessment/Plan Assessment/Plan (1) Non-pressure 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: CODE(S): L97.212 - Non-pressure 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 (2) 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: CODE(S): L97.512 - 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 (3) Chronic ulcer of right foot due to diabetes mellitus: CODE(S): E11.621 - Type 2 diabetes mellitus with foot ulcer; L97.519 - Non-pressure chronic ulcer of other part of right foot with unspecified severity (4) Type 2 diabetes mellitus with diabetic polyneuropathy: CODE(S): E11.42 - Type 2 diabetes mellitus with diabetic polyneuropathy QUALIFIERS: Diabetes mellitus termite renewal inspector insulin use: with prison use Qualified Code(s): E11.42 - Type 2 diabetes mellitus with diabetic polyneuropathy; Z79.4 - truck terminal manager (current) use of insulin (5) Type 2 diabetes mellitus with foot ulcer: CODE(S): E11.621 - Type 2 diabetes mellitus with foot ulcer; L97.509 - Non-pressure chronic ulcer of other part of unspecified foot with unspecified severity QUALIFIERS: Diabetes mellitus termite renewal inspector insulin use: with prison use Qualified Code(s): E11.621 - Type 2 diabetes mellitus with foot ulcer; L97.509 - Non-pressure chronic ulcer of other part of unspecified foot with unspecified severity; Z79.4 - senior living (current) use of insulin (6) Hypothyroidism: CODE(S): E03.9 - Hypothyroidism, unspecified QUALIFIERS: Hypothyroidism type: unspecified Qualified Code(s): E03.9 - Hypothyroidism, unspecified (7) Diabetes mellitus with diabetic polyneuropathy: CODE(S): E11.42 - Type 2 diabetes mellitus with diabetic polyneuropathy QUALIFIERS: Diabetes mellitus type: type 2 Diabetes mellitus prison insulin use: without prison use Qualified Code(s): E11.42 - Type 2 diabetes mellitus with diabetic polyneuropathy PLAN: The patient appears to be tolerating hyperbaric oxygen therapy well, which will be continued as per their medical treatment plan. Encouraged her to use Flonase nasal spray daily to help with eustachian tube dysfunction.
[2021-10-27 08:45] LABS: Bedside Glucose 171 mg/dL (74-106)
--- NOTE | 2021-10-27 09:10 | PCM.HBO.PN ---
History of Present Illness Date of Service: 10/27/21 Chief Complaint: right foot ulcer and Right Leg wound History of Wound: This 55-year-old female presents for care of right foot wound. She had surgery at [facility] in November 2020. She denies current fever, chill, nausea, vomiting. She denies delays in wound care and has been applying saline wet-to-dry to help with home health. She relates her bone biopsy that was obtained during her foot surgery was negative for osteomyelitis. She has a PICC placed and saw infectious disease specialist, Dr. Paez at [facility]. She relates she is almost complete with her IV antibiotic course. She is offloading with a surgical shoe. She takes nutritional supplementation including vitamin D and B. She denies claudication. She does have rest paresthesias. She is diabetic with an A1c of over 8%. She also has history of back injuries. Since her last visit, she reports she had thick fluid squirting out of the wound with application of her silver dressing. She was concerned it was infected and called in yesterday. She is advised by nursing staff to go to the emergency room if she thought she had a rapid onset infection. She relates she is scheduled to see her surgeon tomorrow. She did not obtain the previously ordered labs and foot x-rays. She denies current redness or odor. Medical records reviewed from and it is noted she had right foot incision and drainage of fifth metatarsal on 12-04-20. Her surgeon was Dr. Blanchard. She is advised wearing AFO brace. It is noted she started on Bactrim and then after the surgery she was placed on IV antibiotics. She later developed an infection of her right foot ulceration and underwent I&D with wide debridement on 05-23-21 and 05-28-[address] Alexandre and Dr. Gonzalez. Cultures were positive for MRSA and Enterococcus and was placed on IV Vancomycin by infectious disease. She was discharged to a group home facility with instructions for wound vac application to right anterior leg and lateral right foot and wet to dry Dakin's dressings to the right foot. Allergies: Clindamycin Medications cyclo-Benzapril, NuvaRing, Advil, Cytomel, [place], armodafinil, Singulair, Synthroid, Lyrica Past medical history: diabetes and history of back surgery, ankle surgery, right knee arthroscopy Social history: former smoker and no current tobacco use; quit in 1981 Subjective Subjective This patient presented today for her th out of 30 HBO treatment. Upon examination she was noted to have stage I barotrauma to the right tympanic membrane. She had recently had the eustachian tubes removed. They were removed on October 22, according to the supervising nurse she was noted to have the barotrauma after her October 24 HBO dive. The patient did not experience any discomfort, continues to deny any discomfort. However, given the evidence of barotrauma I am going to advise the patient against participating in hyperbaric oxygen therapy today. She will need to discuss this further with her medical doctor to determine if further hyperbaric oxygen therapy is needed. Objective Data Objective Data Vital Signs: Vital Signs Temp Pulse Resp BP 97.2 F L 87 17 137/63 H 10/24/21 11:41 10/24/21 11:41 10/24/21 11:41 10/24/21 11:41 Weight: 177 lb Body Mass Index (BMI) 26.9 Lab / Micro Data Labs: Laboratory Results - last 24 hr 10/27/21 08:43: POC Glucose 171 H Exam Physical Exam Const alert, oriented x3 and no apparent distress General Appearance: cooperative and comfortable HEENT normocephalic, head/scalp atraumatic and external ears normal HEENT Narrative: Stage I barotrauma to the right tympanic membrane. Eustachian tubes absent. Tympanic Membrane: TM's normal bilaterally Resp normal respiratory effort Effort and Inspection: able to speak in complete sentences Psych mental status grossly normal, thought process normal, cooperative and affect normal Assessment/Plan Assessment/Plan (1) Chronic ulcer of right foot due to diabetes mellitus: CODE(S): E11.621 - Type 2 diabetes mellitus with foot ulcer; L97.519 - Non-pressure chronic ulcer of other part of right foot with unspecified severity PLAN: No hyperbaric oxygen therapy today. She will need to discuss her medical plan with medical doctor. (2) Non-pressure 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: CODE(S): L97.212 - Non-pressure 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 (3) 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: CODE(S): L97.512 - 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 (4) Type 2 diabetes mellitus with diabetic polyneuropathy: CODE(S): E11.42 - Type 2 diabetes mellitus with diabetic polyneuropathy QUALIFIERS: Diabetes mellitus care home insulin use: with care home use Qualified Code(s): E11.42 - Type 2 diabetes mellitus with diabetic polyneuropathy; Z79.4 - prison (current) use of insulin (5) Charcot's joint of right foot: CODE(S): M14.671 - Charcot's joint, right ankle and foot (6) Hypothyroidism: CODE(S): E03.9 - Hypothyroidism, unspecified QUALIFIERS: Hypothyroidism type: unspecified Qualified Code(s): E03.9 - Hypothyroidism, unspecified
--- NOTE | 2021-10-27 09:23 | WC ---
Montse Jung ordered no dive today D/T pt having blood in right ear. Pt had tubes removed from ears roughly a week ago and states shes not getting them back in with 2 dives left so she will not be diving at this time.
[2021-10-30 11:46] VITALS: BP 112/58; PULSE 96; RESP 16; TEMP 36.2; BMI 26.9
--- NOTE | 2021-10-30 15:32 | PN.PCM_ITS ---
History of Present Illness Date of Service: 10/30/21 Chief Complaint: right foot ulcer and Right Leg wound History of Wound: This 55-year-old female presents for care of right foot wound. She had surgery at [facility] in November 2020. She denies current fever, chill, nausea, vomiting. She denies delays in wound care and has been applying saline wet-to-dry to help with home health. She relates her bone biopsy that was obtained during her foot surgery was negative for osteomyelitis. She has a PICC placed and saw infectious disease specialist, Dr. Paez at [facility]. She relates she is almost complete with her IV antibiotic course. She is offloading with a surgical shoe. She takes nutritional supplementation including vitamin D and B. She denies claudication. She does have rest paresthesias. She is diabetic with an A1c of over 8%. She also has history of back injuries. Since her last visit, she reports she had thick fluid squirting out of the wound with application of her silver dressing. She was concerned it was infected and called in yesterday. She is advised by nursing staff to go to the emergency room if she thought she had a rapid onset infection. She relates she is scheduled to see her surgeon tomorrow. She did not obtain the previously ordered labs and foot x-rays. She denies current redness or odor. Medical records reviewed from and it is noted she had right foot incision and drainage of fifth metatarsal on 12-04-20. Her surgeon was Dr. Blanchard. She is advised wearing AFO brace. It is noted she started on Bactrim and then after the surgery she was placed on IV antibiotics. She later developed an infection of her right foot ulceration and underwent I&D with wide debridement on 05-23-21 and 05-28-[address] Alexandre and Dr. Gonzalez. Cultures were positive for MRSA and Enterococcus and was placed on IV Vancomycin by infectious disease. She was [facility] a [facility] facility with instructions for wound vac application to right anterior leg and lateral right foot and wet to dry Dakin's dressings to the right foot. Allergies: Clindamycin Medications cyclo-Benzapril, NuvaRing, Advil, Cytomel, [place], armodafinil, Singulair, Synthroid, Lyrica Past medical history: diabetes and history of back surgery, ankle surgery, right knee arthroscopy Social history: former smoker and no current tobacco use; quit in 1981 Subjective Subjective This is a 55-year-old female who presents to the wound care center for follow-up of a right anterior lower extremity wound. She continues to deny any constitutional symptoms. She continues to deny any pain to the site. She states that her hyperbaric dives are completed. She has no further complaints today. Objective Data Objective Data Vital Signs: Vital Signs Temp Pulse Resp BP 97.2 F L 96 16 112/58 L 10/30/21 11:46 10/30/21 11:46 10/30/21 11:46 10/30/21 11:46 Weight: 80.286 kg Body Mass Index (BMI) 26.9 Physical Exam Const alert, oriented x3 and no apparent distress General Appearance: cooperative and comfortable HEENT normocephalic Eyes General Eye: normal appearance of both eyes Neck General: normal visual inspection Lymph Lymphatic: no lymphadenopathy noted and no lymphedema noted Resp normal respiratory effort Cardio regular rate and regular rhythm Extremity normal capillary refill, no joint enlargement, no calf tenderness and no pedal edema Skin no rashes or lesions noted, skin turgor normal and no jaundice Wound Narrative: Ulceration site to the right anterior lower extremity. Right lateral foot and medial foot cicatrix noted. Surrounding skin is intact, supple, and atrophic. Ulcerative site is secondary to a previous surgical debridement of an abscess of the foot and anterior compartment of the lower extremity. Ulcerative site demonstrates no localized signs of infection. Neuro oriented x3 and moves all extremities Debridement Note Debridement Note Wound debrided: Right lower leg Laterality: Right Wound Grade/Stage: Gonzalez stage III Type of Debridement: Excisional debridement Anesthesia Used: 5% Lidocaine Gel Depth: Down to and including healthy tissue and in the subcutaneous layer Percentage of wound debrided: 100 Instrument Used: #15 blade Tissue Removed: Fibrous, devitalized subcutaneous, biofilm, slough Severity: Fat Layer Exposed Amount of bleeding with debridement: Mild Bleeding Controlled with: Compression and gauze Patient tolerated procedure: Patient tolerated procedure well Post-Debridement Measurements and Additional Note: Post-Debridement Measurements/Treatment ALISSA - Nurse 1 - General Ulcer Assessment Start: 10/22/21 10:08 Freq: Status: Active Protocol: RUKHSANA Activity Type Activity Date Activity User E-Sign Co-Sign Detail Recorded Client Recorded Date Recorded By Document 10/23/21 11:19 LAYLA [id number] 10/23/21 11:22 KR Document 10/30/21 11:46 ML [id number] 10/30/21 11:49 ML 10/23/21 10/30/21 11:19 11:46 - Today's Visit Information Type of service Follow-up Visit Follow-up Visit (Physician/LEARNING CENTER COORDINATOR (Physician/LEARNING CENTER COORDINATOR ) ) Arrival Mode Wheelchair Wheelchair Transfer Assistance None Patient Identification Verified (Name & Yes Yes ) Patient Requires Transmission-Based No Precautions Safety Precautions NA Height and Weight Body Mass Index (BMI) 26.9 26.9 BMI Classification Overweight Overweight Vital Signs Temperature (97.8 F-99.1 F) 97.4 F L 97.2 F L Temperature Source Temporal Temporal Pulse Rate (60-100) 93 96 Pulse Location Monitor Monitor Respiratory Rate (12-18) 16 Respiratory rate source Observation Blood Pressure (90/60-120/80) 108/58 L 112/58 L Blood Pressure Mean (mm Hg) 74 76 Source Monitor Monitor Position Semi-Fowlers Sitting Blood Pressure Location Left Arm Left Arm History Since Last Visit- (Skip if this is Patient's initial visit) Have you changed medications since your No No last visit? Any new allergies or adverse reactions No No Had a fall/change in ADL's that may No No increase risk of falls Signs or symptoms of abuse and/or No No neglect since last visit Have you been in the hospital since your No No last visit? Has dressing in place as prescribed Yes Yes Has compression in place as prescribed Yes Yes Has offloadiing in place as prescribed N/A Yes Experienced any changes in pain level or No No management Left Footwear Regular Shoe Regular Shoe Right Footwear No Footwear No Footwear Pain Scale: 0-10 Numeric Is Patient Pain Free? Yes Yes - Nurse 1 - General Ulcer Measurement Start: 10/22/21 10:08 Freq: Status: Active Protocol: Activity Type Activity Date Activity User E-Sign Co-Sign Detail Recorded Client Recorded Date Recorded By Document 10/23/21 11:19 LAYLA [id number] 10/23/21 11:22 KR Document 10/30/21 11:46 ML [id number] 10/30/21 11:49 ML 06/02/22 06/09/22 11:19 11:46 Wound Center Nurse 1 #2 R MID LOWER LEG -Current Size (cm) - Length 0.1 2 -Current Size (cm) - Width 0.1 1 -Current Size (cm) - Depth 0.1 0.1 -Total Square Cm 0.01 2 -Epithelialization Medium 34-66% -Exudate Amt Medium -Exudate Type Serosanguineous -Wound Margin Distinct, Outline Attached -Granulation Amt Medium (34-66%) -Slough/Fibrin Yes -Necrosis Amt Medium (34-66%) -Necrotic Tissue Type Adherent Slough -Texture (Marie-wound Skin Appearance) Assessed -Moisture (Marie-wound Skin Appearance) Assessed -Color (Marie-wound Skin Appearance) Assessed -Temperature (Marie-wound Skin No Abnormality Appearance) (Pt Warm) -Tenderness on Palpation (Marie-wound No Skin Appearance) -Ulcer Cleansing Soap and Water -Foul Odor after Cleansing No -Anesthetic Used 5% Lidocaine Gel Right Calf (cm) 30 Right Ankle (cm) 19 - Nurse 2 - General Ulcer CM Notes Start: 10/22/21 10:08 Freq: Status: Active Protocol: Activity Type Activity Date Activity User E-Sign Co-Sign Detail Recorded Client Recorded Date Recorded By Document 10/30/21 12:24 [id number] 10/30/21 12:34 NATY 10/30/21 12:24 Wound Center Nurse 2 -Time 12:25 -Correct Patient Yes -Correct Side, Site, Position Yes -Correct Procedure Yes -Procedure Performed Yes -Type of Procedure Debridement -Clinical Debridement Subcutaneous -Tissue Removed Subcutaneous -Post Debridement (cm) - Length 2.5 -Post Debridement (cm) - Width 1.2 -Post Debridement (cm) - Depth 0.1 -Total Square (Post) (cm) 3.00 -Area of Debridement (cm) - Length 2.5 -Area of Debridement (cm) - Width 1.2 -Total Square (Area) (cm) 3.00 -Tunneling No -Undermining/Tunneling No -Circular Undermining No -Wound/Ulcer Outcome Not Healed -Ulcer Cleansing Rinsed/ Irrigated with Saline -Foul Odor after Cleansing No -Bioengineered Tissue Yes -Type of Bioengineered Tissue Theraskin -Expiration Date 09/10/24 -Product Lot Number [id number] -Percent Used 100 -Lot number of Saline Used [id number] -Bleeding Controlled with Pressure -Treatment Response Procedure Tolerated Well -Offloading No -Debridement - Subq, 1st 20sq cm No -Apply Skin Sub - 1st 25 sq cm - Legs 1 -Theraskin (per sq cm) 3 Pain Scale: 0-10 Numeric Is Patient Pain Free? Yes WC - Nurse 3 - General Ulcer D/C NN Start: 10/22/21 10:08 Freq: Status: Active Protocol: Activity Type Activity Date Activity User E-Sign Co-Sign Detail Recorded Client Recorded Date Recorded By Document 10/23/21 15:[address] [id number] 10/23/21 15:04 PL Document 10/30/21 12:40 KR [id number] 10/30/21 12:41 KR 10/23/21 10/30/21 15:04 12:40 #2 R MID LOWER LEG -Primary Dressing Covered/Secured with Dry Gauze, Secured with Tape Wound Care Nurse 3 Right -Multi-Layered Wrap Application Unna Boot - Unna Boot - Right ($) Right ($) Pain Scale: 0-10 Numeric Is Patient Pain Free? Yes Yes WC - Visit Discharge Discharge Condition Stable Ambulatory Status Wheelchair Accompanied by mom Assessment/Plan Assessment/Plan (1) Non-pressure 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: CODE(S): L97.212 - Non-pressure 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 (2) 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: CODE(S): L97.512 - 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 (3) Chronic ulcer of right foot due to diabetes mellitus: CODE(S): E11.621 - Type 2 diabetes mellitus with foot ulcer; L97.519 - Non-pressure chronic ulcer of other part of right foot with unspecified severity (4) Type 2 diabetes mellitus with diabetic polyneuropathy: CODE(S): E11.42 - Type 2 diabetes mellitus with diabetic polyneuropathy QUALIFIERS: Diabetes mellitus exterminator helper insulin use: with exterminator helper use Qualified Code(s): E11.42 - Type 2 diabetes mellitus with diabetic p olyneuropathy; Z79.4 - termination clerk (current) use of insulin (5) Type 2 diabetes mellitus with foot ulcer: CODE(S): E11.621 - Type 2 diabetes mellitus with foot ulcer; L97.509 - Non-pressure chronic ulcer of other part of unspecified foot with unspecified severity QUALIFIERS: Diabetes mellitus detention insulin use: with detention use Qualified Code(s): E11.621 - Type 2 diabetes mellitus with foot ulcer; L97.509 - Non-pressure chronic ulcer of other part of unspecified foot with unspecified severity; Z79.4 - termination clerk (current) use of insulin (6) Charcot's joint of right foot: CODE(S): M14.671 - Charcot's joint, right ankle and foot (7) Hypothyroidism: CODE(S): E03.9 - Hypothyroidism, unspecified QUALIFIERS: Hypothyroidism type: unspecified Qualified Code(s): E03.9 - Hypothyroidism, unspecified PLAN: This is a 55-year-old female with history of wide I&D and deep debridement of the right foot and ankle from 05/23/2021 and 05/28/[address] Alexand[address] and Dr. Gonzalez, podiatric specialist. She has history of MRSA infection. Her wounds are complicated by diabetes mellitus type 2 with peripheral polyneuropathy, Charcot joint deformity of the right foot, hypothyroidism. She has remained compliant in nonweightbearing status of the right lower extremity. Patient seen and evaluated. She has completed HBO dives. Her right lower extremity anterior wound is a Gonzalez grade 3 at her right lateral foot wound is a Gonzalez grade 3, right medial foot wound Gonzalez grade 3. She underwent a surgical debridement of all 3 of these Gonzalez grade 3 wounds to the right lower extremity on 05/23/2021 to drain a deep abscess and debride necrotic tissue and tendon. She underwent a second debridement procedure on 05/28/2021 to drain deep anterior compartment abscess of the right lower extremity. She had undergone and completed 8 weeks of IV vancomycin and her PICC line was pulled on 07/09/2021. There is no localized signs of infection to any of the right foot wounds. The right anterior lower extremity wound is continuing to progress closing at the most proximal and most distal portions with continued new skin coverage. TheraSkin graft is taking well to the wound bed and wound margins. Her wounds demonstrate no signs of infection. The surrounding skin is intact and atrophic. This wound is continuing with good progression towards full closure. Right lateral foot wound remains healed. The medial right foot wound remains healed with a stable cicatrix. TheraSkin graft (Application #12) performed today to the right anterior lower extremity wound. Site was dressed with wound veil and anchored with Steri- Strips. We will continue with Unna boot to the right lower extremity. She is instructed to leave dressings clean, dry, and intact. I discussed that we will obtain a new set of x-rays of her right foot to evaluate her Charcot deformity and pending these we will consider shoe gear, offloading boot, and bracing options. Order for outpatient x-ray given to patient today, she will obtain x- ray morning before her appointment in the wound care center next week. Physical therapy will also be considered as she has lost a considerable amount of muscle bulk due to her nonweightbearing status. She continues to make good progress in her healing status and is very pleased with her treatment progress. I discussed with her to continue to ensure proper diabetic glycemic control and intake of protein to ensure wound healing and graft take. The following work up and care recommendations were made: Dressing: Leave TheraSkin graft in place with wound veil covering and Unna boot Wash: Do not wash Tissue growth optimization: TheraSkin skin substitute right anterior leg wound Offload: Nonweightbearing right lower extremity with elevation via soft pillows Vascular: Edema: Unna boot will aid in edema control along with elevation of lower extremity Infection: No localized signs of infection Pain: Continue with Motrin and Tylenol extra strength at home Host factors: History of MRSA and Enterococcus infection. Diabetes type 2 with peripheral polyneuropathy, discussed proper glycemic control and intake of pr otein to ensure wound healing. I answered all the patient's questions. To return to the wound healing center in 1 week or call sooner if the patient has any questions or concerns. Note: [employer] speech recognition hair clipper power software was used to create portions of this document. Sound-alike and misspelled words, as well as other hair clipper power errors may be contained in the documentation.
[2021-11-06 11:46] VITALS: BP 105/59; PULSE 86; RESP 16; TEMP 36.5; BMI 26.9
--- NOTE | 2021-11-06 11:55 | PN.PCM_ITS ---
History of Present Illness Date of Service: 11/06/21 Chief Complaint: right foot ulcer and Right Leg wound History of Wound: This 55-year-old female presents for care of right foot wound. She had surgery at [facility] in November 2020. She denies current fever, chill, nausea, vomiting. She denies delays in wound care and has been applying saline wet-to-dry to help with home health. She relates her bone biopsy that was obtained during her foot surgery was negative for osteomyelitis. She has a PICC placed and saw infectious disease specialist, Dr. Paez at [facility]. She relates she is almost complete with her IV antibiotic course. She is offloading with a surgical shoe. She takes nutritional supplementation including vitamin D and B. She denies claudication. She does have rest paresthesias. She is diabetic with an A1c of over 8%. She also has history of back injuries. Since her last visit, she reports she had thick fluid squirting out of the wound with application of her silver dressing. She was concerned it was infected and called in yesterday. She is advised by nursing staff to go to the emergency room if she thought she had a rapid onset infection. She relates she is scheduled to see her surgeon tomorrow. She did not obtain the previously ordered labs and foot x-rays. She denies current redness or odor. Medical records reviewed from and it is noted she had right foot incision and drainage of fifth metatarsal on 12-04-20. Her surgeon was Dr. Blanchard. She is advised wearing AFO brace. It is noted she started on Bactrim and then after the surgery she was placed on IV antibiotics. She later developed an infection of her right foot ulceration and underwent I&D with wide debridement on 05-23-21 and 05-28-[address] Alexandre and Dr. Gonzalez. Cultures were positive for MRSA and Enterococcus and was placed on IV Vancomycin by infectious disease. She was discharged to a alf facility with instructions for wound vac application to right anterior leg and lateral right foot and wet to dry Dakin's dressings to the right foot. Allergies: Clindamycin Medications cyclo-Benzapril, NuvaRing, Advil, Cytomel, [place], armodafinil, Singulair, Synthroid, Lyrica Past medical history: diabetes and history of back surgery, ankle surgery, right knee arthroscopy Social history: former smoker and no current tobacco use; quit in 1981 Subjective Subjective This is a 55-year-old female who presents to the wound care center for follow-up of a right anterior lower extremity wound.? She continues to deny any constitutional symptoms.? She continues to deny any pain to the site.? She states that she just completed her x-ray prior to coming to the wound center today.? She has no further complaints today. Objective Data Objective Data Vital Signs: Vital Signs Temp Pulse Resp BP 97.7 F L 86 16 105/59 L 11/06/21 11:46 11/06/21 11:46 11/06/21 11:46 11/06/21 11:46 Weight: 80.286 kg Body Mass Index (BMI) 26.9 Physical Exam Const alert, oriented x3 and no apparent distress General Appearance: cooperative and comfortable HEENT normocephalic Eyes General Eye: normal appearance of both eyes Neck General: normal visual inspection Lymph Lymphatic: no lymphadenopathy noted and no lymphedema noted Resp normal respiratory effort Cardio regular rate and regular rhythm Extremity normal capillary refill, no joint enlargement, no calf tenderness and no pedal edema Skin no rashes or lesions noted, skin turgor normal and no jaundice Wound Narrative: Ulceration site to the right anterior lower extremity. Right lateral foot and medial foot cicatrix noted. Surrounding skin is intact, supple, and atrophic. Ulcerative site is secondary to a previous surgical debridement of an abscess of the foot and anterior compartment of the lower extremity. Ulcerative site dem onstrates no localized signs of infection. Neuro oriented x3 and moves all extremities Debridement Note Debridement Note No debridement was completed: No debridement was completed today Post-Debridement Measurements and Additional Note: Post-Debridement Measurements/Treatment WC - Nurse 1 - General Ulcer Assessment Start: 10/22/21 10:08 Freq: Status: Active Protocol: ALISSA.LOWTHAD Activity Type Activity Date Activity User E-sign Co-sign Detail Recorded Client Recorded Date Recorded By Document 10/23/21 11:19 KR [id number] 10/23/21 11:22 KR Document 10/30/21 11:46 ML [id number] 10/30/21 11:49 ML Document 11/06/21 11:46 ML [id number] 11/06/21 11:48 ML 10/23/21 10/30/21 11/06/21 11:19 11:46 11:46 WC - Today's Visit Information Type of service Follow-up Visit Follow-up Visit Follow-up Visit (Physician/COAL SHOVELER (Physician/COAL SHOVELER (Physician/COAL SHOVELER ) ) ) Arrival Mode Wheelchair Wheelchair Wheelchair Transfer Assistance None None Patient Identification Verified (Name & Yes Yes Yes ) Patient Requires Transmission-Based No No Precautions Safety Precautions NA NA Finger Stick Blood Sugar(mg/dl) (if 105 indicated): Blood Sugar Stated by Patient Height and Weight Body Mass Index (BMI) 26.9 26.9 26.9 BMI Classification Overweight Overweight Overweight Vital Signs Temperature (97.8 F-99.1 F) 97.4 F L 97.2 F L 97.7 F L Temperature Source Temporal Temporal Temporal Pulse Rate (60-100) 93 96 86 Pulse Location Monitor Monitor Monitor Respiratory Rate (12-18) 16 16 Respiratory rate source Observation Observation Blood Pressure (90/60-120/80) 108/58 L 112/58 L 105/59 L Blood Pressure Mean (mm Hg) 74 76 74 Source Monitor Monitor Monitor Position Semi-Fowlers Sitting Sitting Blood Pressure Location Left Arm Left Arm History Since Last Visit- (Skip if this is Patient's initial visit) Have you changed medications since your No No No last visit? Any new allergies or adverse reactions No No No Had a fall/change in ADL's that may No No No increase risk of falls Signs or symptoms of abuse and/or No No No neglect since last visit Have you been in the hospital since your No No last visit? Has dressing in place as prescribed Yes Yes Yes Has compression in place as prescribed Yes Yes Yes Has offloadiing in place as prescribed N/A Yes Yes Experienced any changes in pain level or No No No management Left Footwear Regular Shoe Regular Shoe Regular Shoe Right Footwear No Footwear No Footwear No Footwear Pain Scale: 0-10 Numeric Is Patient Pain Free? Yes Yes Yes - Nurse 1 - General Ulcer Measurement Start: 10/22/21 10:08 Freq: Status: Active Protocol: Activity Type Activity Date Activity User E-sign Co-sign Detail Recorded Client Recorded Date Recorded By Document 10/23/21 11:19 KR [id number] 10/23/21 11:22 KR Document 10/30/21 11:46 ML [id number] 10/30/21 11:49 ML 10/23/21 10/30/21 11:19 11:46 Wound Center Nurse 1 #2 R MID LOWER LEG -Current Size (cm) - Length 0.1 2 -Current Size (cm) - Width 0.1 1 -Current Size (cm) - Depth 0.1 0.1 -Total Square Cm 0.01 2 -Epithelialization Medium 34-66% -Exudate Amt Medium -Exudate Type Serosanguineous -Wound Margin Distinct, Outline Attached -Granulation Amt Medium (34-66%) -Slough/Fibrin Yes -Necrosis Amt Medium (34-66%) -Necrotic Tissue Type Adherent Slough -Texture (Marie-wound Skin Appearance) Assessed -Moisture (Marie-wound Skin Appearance) Assessed -Color (Marie-wound Skin Appearance) Assessed -Temperature (Marie-wound Skin No Abnormality Appearance) (Pt Warm) -Tenderness on Palpation (Marie-wound No Skin Appearance) -Ulcer Cleansing Soap and Water -Foul Odor after Cleansing No -Anesthetic Used 5% Lidocaine Gel Right Calf (cm) 30 Right Ankle (cm) 19 - Nurse 2 - General Ulcer CM Notes Start: 10/22/21 10:08 Freq: Status: Active Protocol: Activity Type Activity Date Activity User E-sign Co-sign Detail Recorded Client Recorded Date Recorded By Document 10/30/21 12:24 NATY [id number] 10/30/21 12:34 NATY 10/30/21 12:24 Wound Center Nurse 2 -Time 12:25 -Correct Patient Yes -Correct Side, Site, Position Yes -Correct Procedure Yes -Procedure Performed Yes -Type of Procedure Debridement -Clinical Debridement Subcutaneous -Tissue Removed Subcutaneous -Post Debridement (cm) - Length 2.5 -Post Debridement (cm) - Width 1.2 -Post Debridement (cm) - Depth 0.1 -Total Square (Post) (cm) 3.00 -Area of Debridement (cm) - Length 2.5 -Area of Debridement (cm) - Width 1.2 -Total Square (Area) (cm) 3.00 -Tunneling No -Undermining/Tunneling No -Circular Undermining No -Wound/Ulcer Outcome Not Healed -Ulcer Cleansing Rinsed/ Irrigated with Saline -Foul Odor after Cleansing No -Bioengineered Tissue Yes -Type of Bioengineered Tissue Theraskin -Expiration Date 09/10/24 -Product Lot Number [id number] -Percent Used 100 -Lot number of Saline Used [id number] -Bleeding Controlled with Pressure -Treatment Response Procedure Tolerated Well -Offloading No -Debridement - Subq, 1st 20sq cm No -Apply Skin Sub - 1st 25 sq cm - Legs 1 -Theraskin (per sq cm) 3 Pain Scale: 0-10 Numeric Is Patient Pain Free? Yes - Nurse 3 - General Ulcer D/C NN Start: 10/22/21 10:08 Freq: Status: Active Protocol: Activity Type Activity Date Activity User E-sign Co-sign Detail Recorded Client Recorded Date Recorded By Document 10/23/21 15:04 PL [id number] 10/23/21 15:04 PL Document 10/30/21 12:40 KR [id number] 10/30/21 12:41 KR 10/23/21 10/30/21 15:04 12:40 Wound Care Nurse 3 #2 R MID LOWER LEG -Primary Dressing Covered/Secured with Dry Gauze, Secured with Tape Right -Multi-Layered Wrap Application Unna Boot - Unna Boot - Right ($) Right ($) Pain Scale: 0-10 Numeric Is Patient Pain Free? Yes Yes - Visit Discharge Discharge Condition Stable Ambulatory Status Wheelchair Accompanied by mom Assessment/Plan Assessment/Plan (1) Non-pressure 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: CODE(S): L97.212 - Non-pressure 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 (2) 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: CODE(S): L97.512 - 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 (3) Chronic ulcer of right foot due to diabetes mellitus: CODE(S): E11.621 - Type 2 diabetes mellitus with foot ulcer; L97.519 - Non-pressure chronic ulcer of other part of right foot with unspecified severity (4) Type 2 diabetes mellitus with diabetic polyneuropathy: CODE(S): E11.42 - Type 2 diabetes mellitus with diabetic polyneuropathy QUALIFIERS: Diabetes mellitus director long term care insulin use: with custodial use Qualified Code(s): E11.42 - Type 2 diabetes mellitus with diabetic polyneuropathy; Z79.4 - assisted (current) use of insulin (5) Type 2 diabetes mellitus with foot ulcer: CODE(S): E11.621 - Type 2 diabetes mellitus with foot ulcer; L97.509 - Non-pressure chronic ulcer of other part of unspecified foot with unspecified severity QUALIFIERS: Diabetes mellitus director long term care insulin use: with custodial use Qualified Code(s): E11.621 - Type 2 diabetes mellitus with foot ulcer; L97.509 - Non-pressure chronic ulcer of other part of unspecified foot with unspecified severity; Z79.4 - termite treater helper (current) use of 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 Alexand[address] and Dr. Gonzalez, podiatric specialist. She has history of MRSA infection. Her wounds are complicated by diabetes mellitus type 2 with peripheral polyneuropathy, Charcot joint deformity of the right foot, hypothyroidism. She has remained compliant in nonweightbearing status of the right lower extremity. Patient seen and evaluated. She has completed HBO dives. Her right lower extremity anterior wound is a Gonzalez grade 3 at her right lateral foot wound is a Gonzalez grade 3, right medial foot wound Gonzalez grade 3. She underwent a surgical debridement of all 3 of these Gonzalez grade 3 wounds to the right lower extremity on 05/23/2021 to drain a deep abscess and debride necrotic tissue and tendon. She underwent a second debridement procedure on 05/28/2021 to drain deep anterior compartment abscess of the right lower extremity. She had undergone and completed 8 weeks of IV vancomycin and her PICC line was pulled on 07/09/2021. There is no localized signs of infection to any of the right foot wounds. The right anterior lower extremity wound is continuing to progress closing at the most proximal and most distal portions with continued new skin coverage. TheraSkin graft is taking well to the wound bed and wound margins. Her wounds demonstrate no signs of infection. The surrounding skin is intact and atrophic. This wound is continuing with good progression towards full closure. Right lateral foot wound remains healed. The medial right foot wound remains healed with a stable cicatrix. TheraSkin graft (Application #12) was left intact today to the right anterior lower extremity wound. Site was dressed with wound veil and anchored with Steri-Strips. A dry sterile dressing and Sebastian bandages were applied to the right lower extremity. I reviewed her outpatient x-rays of her right foot and ankle. Radiographs demonstrate degenerative changes at the tarsometatarsal and natalia iculocuneiform joints secondary to Charcot deformity. The site is stable with significant sclerosis of bone noted. There are no plantar prominences noted. She does have some decreased bone density to the distal tibia and a previous ORIF of the fibula. Her plate and screws are intact with no signs of failure. I discussed allowing her to ambulate in her shoe with a protective Spenco diabetic insert with plantar padding for her hallux. She was also instructed to skip the lacing pattern over the top of her foot as to not place pressure at the graft site. I will place an order for physical therapy as she has lost a considerable amount of muscle bulk due to her nonweightbearing status. This will allow her to regain strength, balance, and coordination as she begins to ambulate. She will return for a nurse visit for dressing change with removal of current TheraSkin graft next week. She continues to make good progress in her healing status and is very pleased with her treatment progress. I discussed with her to continue to ensure proper diabetic glycemic control and intake of protein to ensure wound healing and graft take. The following work up and care recommendations were made: Dressing: Leave TheraSkin graft in place with wound veil covering and Unna boot Wash: Do not wash Tissue growth optimization: TheraSkin skin substitute right anterior leg wound Offload: Nonweightbearing right lower extremity with elevation via soft pillows Vascular: Edema: Unna boot will aid in edema control along with elevation of lower extremity Infection: No localized signs of infection Pain: Continue with Motrin and Tylenol extra strength at home Host factors: History of MRSA and Enterococcus infection. Diabetes type 2 with peripheral polyneuropathy, discussed proper glycemic control and intake of protein to ensure wound healing. I answered all the patient's questions. To return to the wound healing center in 2 weeks or call sooner if the patient has any questions or concerns. Note: Converser speech recognition er physician software was used to create portions of this document. Sound-alike and misspelled words, as well as other er physician errors may be contained in the documentation.
[2021-11-13 13:25] VITALS: BP 126/73; PULSE 97; RESP 16; TEMP 36.7; BMI 26.9
[2021-11-20 11:25] VITALS: BP 128/78; PULSE 109; RESP 18; TEMP 35.9; BMI 26.9
--- NOTE | 2021-11-20 17:34 | PN.PCM_ITS ---
History of Present Illness Date of Service: 11/20/21 Chief Complaint: right foot ulcer and Right Leg wound History of Wound: This 55-year-old female presents for care of right foot wound. She had surgery at [facility] in November 2020. She denies current fever, chill, nausea, vomiting. She denies delays in wound care and has been applying saline wet-to-dry to help with home health. She relates her bone biopsy that was obtained during her foot surgery was negative for osteomyelitis. She has a PICC placed and saw infectious disease specialist, Dr. Paez at [facility]. She relates she is almost complete with her IV antibiotic course. She is offloading with a surgical shoe. She takes nutritional supplementation including vitamin D and B. She denies claudication. She does have rest paresthesias. She is diabetic with an A1c of over 8%. She also has history of back injuries. Since her last visit, she reports she had thick fluid squirting out of the wound with application of her silver dressing. She was concerned it was infected and called in yesterday. She is advised by nursing staff to go to the emergency room if she thought she had a rapid onset infection. She relates she is scheduled to see her surgeon tomorrow. She did not obtain the previously ordered labs and foot x-rays. She denies current redness or odor. Medical records reviewed from and it is noted she had right foot incision and drainage of fifth metatarsal on 12-04-20. Her surgeon was Dr. Blanchard. She is advised wearing AFO brace. It is noted she started on Bactrim and then after the surgery she was placed on IV antibiotics. She later developed an infection of her right foot ulceration and underwent I&D with wide debridement on 05-23-21 and 05-28-[address] Alexandre and Dr. Gonzalez. Cultures were positive for MRSA and Enterococcus and was placed on IV Vancomycin by infectious disease. [facility] with instructions for wound vac application to right anterior leg and lateral right foot and wet to dry Dakin's dressings to the right foot. Allergies: Clindamycin Medications cyclo-Benzapril, NuvaRing, Advil, Cytomel, [place], armodafinil, Singulair, Synthroid, Lyrica Past medical history: diabetes and history of back surgery, ankle surgery, right knee arthroscopy Social history: former smoker and no current tobacco use; quit in 1981 Subjective Subjective This is a 55-year-old female who presents to the wound care center for follow-up of a right anterior lower extremity wound.? She continues to deny any constitutional symptoms.? She continues to deny any pain to the site.? She states she has enjoyed her return to shoe gear and driving again. She has no further complaints today. Objective Data Objective Data Vital Signs: Vital Signs Temp Pulse Resp BP O2 Del Method 96.7 F L 109 H 18 128/78 H Room Air 11/20/21 11:25 11/20/21 11:25 11/20/21 11:25 11/20/21 11:25 11/13/21 13:25 Oxygen Delivery Method Room Air Weight: 80.286 kg Body Mass Index (BMI) 26.9 Physical Exam Const alert, oriented x3 and no apparent distress General Appearance: cooperative and comfortable HEENT normocephalic Eyes General Eye: normal appearance of both eyes Neck General: normal visual inspection Lymph Lymphatic: no lymphadenopathy noted and no lymphedema noted Resp normal respiratory effort Cardio regular rate and regular rhythm Extremity normal capillary refill, no joint enlargement, no calf tenderness and no pedal edema Skin no rashes or lesions noted, skin turgor normal and no jaundice Wound Narrative: Ulceration site to the right anterior lower extremity. Right lateral foot and medial foot cicatrix noted. Surrounding skin is intact, supple, and atrophic. Ulcerative site is secondary to a previous surgical debridement of an abscess of the foot and anterior compartment of the lower extremity. Ulcerative site demonstrates no localized signs of infection. Neuro oriented x3 and moves all extremities Debridement Note Debridement Note Wound debrided: Right lower extremity Laterality: Right Wound Grade/Stage: Gonzalez stage III Type of Debridement: Excisional debridement Anesthesia Used: 5% Lidocaine Gel Depth: Down to and including healthy tissue and in the subcutaneous layer Percentage of wound debrided: 100 Instrument Used: #15 blade Tissue Removed: Fibrous, devitalized subcutaneous, biofilm, slough Severity: Fat Layer Exposed Amount of bleeding with debridement: Mild Bleeding Controlled with: Compression and gauze Patient tolerated procedure: Patient tolerated procedure well Post-Debridement Measurements and Additional Note: Post-Debridement Measurements/Treatment WC - Nurse 1 - General Ulcer Assessment Start: 10/22/21 10:08 Freq: Status: Active Protocol: WC.LOWEXT Activity Type Activity Date Activity User E-sign Co-sign Detail Recorded Client Recorded Date Recorded By Document 10/23/21 11:19 KR [id number] 10/23/21 11:22 KR Document 10/30/21 11:46 ML [id number] 10/30/21 11:49 ML Document 11/06/21 11:46 ML [id number] 11/06/21 11:48 ML Document 11/13/21 13:25 BMF [id number] 11/13/21 13:28 BMF Document 11/20/21 11:25 DL [id number] 11/20/21 11:32 DL 10/23/21 10/30/21 11/06/21 11:19 11:46 11:46 WC - Today's Visit Information Type of service Follow-up Visit Follow-up Visit Follow-up Visit (Physician/STRIPPING AND BOOKING MACHINE OPERATOR (Physician/STRIPPING AND BOOKING MACHINE OPERATOR (Physician/STRIPPING AND BOOKING MACHINE OPERATOR ) ) ) Arrival Mode Wheelchair Wheelchair Wheelchair Transfer Assistance None None Patient Identification Verified (Name & Yes Yes Yes ) Patient Requires Transmission-Based No No Precautions Safety Precautions NA NA Finger Stick Blood Sugar(mg/dl) (if 105 indicated): Blood Sugar Stated by Patient Height and Weight Body Mass Index (BMI) 26.9 26.9 26.9 BMI Classification Overweight Overweight Overweight Vital Signs Temperature (97.8 F-99.1 F) 97.4 F L 97.2 F L 97.7 F L Temperature Source Temporal Temporal Temporal Pulse Rate (60-100) 93 96 86 Pulse Location Monitor Monitor Monitor Respiratory Rate (12-18) 16 16 Respiratory rate source Observation Observation Oxygen Delivery Method Blood Pressure (90/60-120/80) 108/58 L 112/58 L 105/59 L Blood Pressure Mean (mm Hg) 74 76 74 Source Monitor Monitor Monitor Position Semi-Fowlers Sitting Sitting Blood Pressure Location Left Arm Left Arm History Since Last Visit- (Skip if this is Patient's initial visit) Have you changed medications since your No No No last visit? Any new allergies or adverse reactions No No No Had a fall/change in ADL's that may No No No increase risk of falls Signs or symptoms of abuse and/or No No No neglect since last visit Have you been in the hospital since your No No last visit? Has dressing in place as prescribed Yes Yes Yes Has compression in place as prescribed Yes Yes Yes Has offloadiing in place as prescribed N/A Yes Yes Experienced any changes in pain level or No No No management Left Footwear Regular Shoe Regular Shoe Regular Shoe Right Footwear No Footwear No Footwear No Footwear Pain Scale: 0-10 Numeric Is Patient Pain Free? Yes Yes Yes 11/13/21 11/20/21 13:25 11:25 - Today's Visit Information Type of service Nurse-only Follow-up Visit Visit (Physician/STRIPPING AND BOOKING MACHINE OPERATOR ) Arrival Mode Ambulatory Ambulatory Transfer Assistance None None Patient Identification Verified (Name & Yes Yes ) Patient Requires Transmission-Based No No Precautions Safety Precautions Finger Stick Blood Sugar(mg/dl) (if not checked indicated): Blood Sugar Stated by Patient Height and Weight Body Mass Index (BMI) 26.9 26.9 BMI Classification Overweight Overweight Vital Signs Temperature (97.8 F-99.1 F) 98.1 F 96.7 F L Temperature Source Temporal Temporal Pulse Rate (60-100) 97 109 H Pulse Location Monitor Monitor Respiratory Rate (12-18) 16 18 Respiratory rate source Observation Observation Oxygen Delivery Method Room Air Blood Pressure (90/60-120/80) 126/73 H 128/78 H Blood Pressure Mean (mm Hg) 90 94 Source Monitor Monitor Position Sitting Blood Pressure Location Right Arm History Since Last Visit- (Skip if this is Patient's initial visit) Have you changed medications since your No No last visit? Any new allergies or adverse reactions No No Had a fall/change in ADL's that may No No increase risk of falls Signs or symptoms of abuse and/or No No neglect since last visit Have you been in the hospital since your No No last visit? Has dressing in place as prescribed Yes Yes Has compression in place as prescribed Yes Yes Has offloadiing in place as prescribed N/A Yes Experienced any changes in pain level or No No management Left Footwear Regular Shoe Right Footwear Regular Shoe Pain Scale: 0-10 Numeric Is Patient Pain Free? Yes Yes - Nurse 1 - General Ulcer Measurement Start: 10/22/21 10:08 Freq: Status: Active Protocol: Activity Type Activity Date Activity User E-sign Co-sign Detail Recorded Client Recorded Date Recorded By Document 10/23/21 11:19 [id number] 10/23/21 11:22 KR Document 10/30/21 11:46 ML [id number] 10/30/21 11:49 ML Document 11/20/21 11:25 DL [id number] 11/20/21 11:32 DL 10/23/21 10/30/21 11/20/21 11:19 11:46 11:25 Wound Center Nurse 1 #2 R MID LOWER LEG -Current Size (cm) - Length 0.1 2 1.7 -Current Size (cm) - Width 0.1 1 1.6 -Current Size (cm) - Depth 0.1 0.1 0.1 -Total Square Cm 0.01 2 2.72 -Photo Taken Yes -Epithelialization Medium 34-66% -Exudate Amt Medium Small -Exudate Type Serosanguineous Serosanguineous -Wound Margin Distinct, Distinct, Outline Outline Attached Attached -Granulation Amt Medium (34-66%) Small (1-33%) -Granulation Quality [place] -Slough/Fibrin Yes -Necrosis Amt Medium (34-66%) Small (1-33%) -Necrotic Tissue Type Adherent Slough Adherent Slough -Structure Exposed N/A -Texture (Marie-wound Skin Appearance) Assessed Scarring -Moisture (Marie-wound Skin Appearance) Assessed Maceration -Color (Marie-wound Skin Appearance) Assessed No Abnormality -Temperature (Marie-wound Skin No Abnormality No Abnormality Appearance) (Pt Warm) (Pt Warm) -Tenderness on Palpation (Marie-wound No No Skin Appearance) -Ulcer Cleansing Soap and Water Soap and Water -Foul Odor after Cleansing No No -Anesthetic Used 5% Lidocaine 4% Lidocaine Gel Solution Right Calf (cm) 30 32.4 Right Ankle (cm) 19 21.5 WC - Nurse 2 - General Ulcer CM Notes Start: 10/22/21 10:08 Freq: Status: Active Protocol: Activity Type Activity Date Activity User E-sign Co-sign Detail Recorded Client Recorded Date Recorded By Document 10/30/21 12:24 JF [id number] 10/30/21 12:34 JF Document 11/20/21 12:36 PL [id number] 11/20/21 12:37 PL 10/30/21 11/20/21 12:24 12:36 Wound Center Nurse 2 #2 R MID LOWER LEG -Time 12:25 11:45 -Correct Patient Yes Yes -Correct Side, Site, Position Yes Yes -Correct Procedure Yes Yes -Procedure Performed Yes Yes -Type of Procedure Debridement Debridement -Clinical Debridement Subcutaneous Subcutaneous -Tissue Removed Subcutaneous Subcutaneous -Post Debridement (cm) - Length 2.5 1.7 -Post Debridement (cm) - Width 1.2 1.6 -Post Debridement (cm) - Depth 0.1 0.1 -Total Square (Post) (cm) 3.00 2.72 -Area of Debridement (cm) - Length 2.5 1.7 -Area of Debridement (cm) - Width 1.2 1.6 -Total Square (Area) (cm) 3.00 2.72 -Tunneling No No -Undermining/Tunneling No No -Circular Undermining No No -Wound/Ulcer Outcome Not Healed Not Healed -Ulcer Cleansing Rinsed/ Rinsed/ Irrigated with Irrigated with Saline Saline -Foul Odor after Cleansing No No -Bioengineered Tissue Yes No -Type of Bioengineered Tissue Theraskin -Expiration Date 09/10/24 -Product Lot Number [id number] -Percent Used 100 -Lot number of Saline Used [id number] -Bleeding Controlled with Pressure Pressure -Treatment Response Procedure Procedure Tolerated Well Tolerated Well -Offloading No -Debridement - Subq, 1st 20sq cm No Yes -Apply Skin Sub - 1st 25 sq cm - Legs 1 -Theraskin (per sq cm) 3 Pain Scale: 0-10 Numeric Is Patient Pain Free? Yes No WC - Nurse 3 - General Ulcer D/C NN Start: 10/22/21 10:08 Freq: Status: Active Protocol: Activity Type Activity Date Activity User E-sign Co-sign Detail Recorded Client Recorded Date Recorded By Document 10/23/21 15:04 PL [id number] 10/23/21 15:04 PL Document 10/30/21 12:40 KR [id number] 10/30/21 12:41 KR Document 11/06/21 12:16 KR [id number] 11/06/21 12:16 KR Document 11/13/21 13:25 BM [id number] 11/13/21 13:28 BMF 10/23/21 10/30/21 11/06/21 15:04 12:40 12:16 Wound Care Nurse 3 #2 R MID LOWER LEG -Ulcer Cleansing -Foul Odor after Cleansing -Primary Dressing Applied -Other Dressing ABD pad -Primary Dressing Covered/Secured with Dry Gauze, Dry Gauze & Secured with Roll Gauze, Tape Secured with Tape -Other Covering -Promogran Cherelle Matter Right -Multi-Layered Wrap Application Unna Boot - Unna Boot - Right ($) Right ($) -Compression Wrap Treatment Response Vital Signs Temperature (97.8 F-99.1 F) Temperature Source Pulse Rate (60-100) Pulse Location Respiratory Rate (12-18) Respiratory rate source Oxygen Delivery Method Blood Pressure (90/60-120/80) Blood Pressure Mean (mm Hg) Source Position Blood Pressure Location Pain Scale: 0-10 Numeric Is Patient Pain Free? Yes Yes Yes WC - Visit Discharge Discharge Condition Stable Stable Ambulatory Status Wheelchair Wheelchair Transportation Private Auto Accompanied by mom george 11/13/21 13:25 Wound Care Nurse 3 #2 R MID LOWER LEG -Ulcer Cleansing Rinsed/ Irrigated with Saline -Foul Odor after Cleansing No -Primary Dressing Applied Promogran Cherelle Matter -Other Dressing -Primary Dressing Covered/Secured with Dry Gauze & Roll Gauze, Secured with Tape,Other -Other Covering ABD -Promogran Cherelle Matter 1 Right -Multi-Layered Wrap Application -Compression Wrap Sebastian Wrap Treatment Response Procedure Tolerated Well Vital Signs Temperature (97.8 F-99.1 F) 98.1 F Temperature Source Temporal Pulse Rate (60-100) 97 Pulse Location Monitor Respiratory Rate (12-18) 16 Respiratory rate source Observation Oxygen Delivery Method Room Air Blood Pressure (90/60-120/80) 126/73 H Blood Pressure Mean (mm Hg) 90 Source Monitor Position Sitting Blood Pressure Location Right Arm Pain Scale: 0-10 Numeric Is Patient Pain Free? Yes WC - Visit Discharge Discharge Condition Stable Ambulatory Status Ambulatory Transportation Accompanied by Assessment/Plan Assessment/Plan (1) Non-pressure 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: CODE(S): L97.212 - Non-pressure 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 (2) 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: CODE(S): L97.512 - 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 (3) Chronic ulcer of right foot due to diabetes mellitus: CODE(S): E11.621 - Type 2 diabetes mellitus with foot ulcer; L97.519 - Non-pressure chronic ulcer of other part of right foot with unspecified severity (4) Type 2 diabetes mellitus with diabetic polyneuropathy: CODE(S): E11.42 - Type 2 diabetes mellitus with diabetic polyneuropathy QUALIFIERS: Diabetes mellitus snf insulin use: with snf use Qualified Code(s): E11.42 - Type 2 diabetes mellitus with diabetic polyneuropathy; Z79.4 - correction (current) use of insulin (5) Type 2 diabetes mellitus with foot ulcer: CODE(S): E11.621 - Type 2 diabetes mellitus with foot ulcer; L97.509 - Non-pressure chronic ulcer of other part of unspecified foot with unspecified severity QUALIFIERS: Diabetes mellitus supervisor intermediates insulin use: with snf use Qualified Code(s): E11.621 - Type 2 diabetes mellitus with foot ulcer; L97.509 - Non-pressure chronic ulcer of other part of unspecified foot with unspecified severity; 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 Alexand[address] and Dr. Gonzalez, podiatric specialist. She has history of MRSA infection. Her wounds are complicated by diabetes mellitus type 2 with peripheral polyneuropathy, Charcot joint deformity of the right foot, hypothyroidism. She has remained compliant in nonweightbearing status of the right lower extremity. Patient seen and evaluated. She has completed HBO dives. Her right lower extremity anterior wound is a Gonzalez grade 3 at her right lateral foot wound is a Gonzalez grade 3, right medial foot wound Gonzalez grade 3. She underwent a surgical debridement of all 3 of these Gonzalez grade 3 wounds to the right lower extremity on 05/23/2021 to drain a deep abscess and debride necrotic tissue and tendon. She underwent a second debridement procedure on 05/28/2021 to drain deep anterior compartment abscess of the right lower extremity. She had undergone and completed 8 weeks of IV vancomycin and her PICC line was pulled on 07/09/2021. There is no localized signs of infection to any of the right foot wounds. The right anterior lower extremity wound is continuing to progress closing at the most proximal and most distal portions with continued new skin coverage. Her wounds demonstrate no signs of infection. The surrounding skin is intact and atrophic. This wound is continuing with good progression towards full closure. Wound site dressed with Cherelle and dry sterile dressing. Right lateral foot wound remains healed. The medial right foot wound remains healed with a stable cicatrix. Radiographs from 11/06/21 demonstrate degenerative changes at the tarsometatarsal and naviculocuneiform joints secondary to Charcot deformity. The site is stable with significant sclerosis of bone noted. There are no plantar prominences noted. She does have some decreased bone density to the distal tibia and a previous ORIF of the fibula. Her plate and screws are intact with no signs of failure. She may continue to ambulate in her shoe with a protective Spenco diabetic insert with plantar padding for her hallux. She was also instructed to skip the lacing pattern over the top of her foot as to not place pressure at the wound site. I will place an order for physical therapy as she has lost a considerable amount of muscle bulk due to her nonweightbearing status. This will allow her to regain strength, balance, and coordination as she begins to ambulate. She continues to make good progress in her healing status and is very pleased wi th her treatment progress. I discussed with her to continue to ensure proper diabetic glycemic control and intake of protein to ensure wound healing and graft take. The following work up and care recommendations were made: Dressing: Cherelle and DSD Wash: Soap and Water Tissue growth optimization: Cherelle Offload: Nonweightbearing right lower extremity with elevation via soft pillows Vascular: Edema: Elevate lower extremity at times of rest Infection: No localized signs of infection Pain: Continue with Motrin and Tylenol extra strength at home Host factors: History of MRSA and Enterococcus infection. Diabetes type 2 with peripheral polyneuropathy, discussed proper glycemic control and intake of protein to ensure wound healing. I answered all the patient's questions. To return to the wound healing center in 1 week or call sooner if the patient has any questions or concerns. Note: [employer] speech recognition game designer software was used to create portions of this document. Sound-alike and misspelled words, as well as other game designer errors may be contained in the documentation.
== END 2021-11-20 23:59 | disposition home or self-care (01) ==
LOC: WC 11:30
PROVIDERS: PCP Family Medicine; Visit Provider Student in an Organized Health Care Education/Training Program
DX: E11.621 Type 2 diabetes mellitus with foot ulcer (principal); L97.212 Non-pressure 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; L97.512 Non-pressure chronic 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; E11.42 Type 2 diabetes mellitus with diabetic polyneuropathy; E11.610 Type 2 diabetes mellitus with diabetic neuropathic arthropathy; Z79.4 Long term (current) use of insulin; M14.671 Charcot's joint, right ankle and foot; E03.9 Hypothyroidism, unspecified; Z87.891 Personal history of nicotine dependence; Z86.14 Personal history of Methicillin resistant Staphylococcus aureus infection
CPT/HCPCS: 11042; 15271; 29580; 82962; 99183; 99213; Q4121; G0277; G0463

== ENCOUNTER 2021-11-22 17:26 | Inpatient (IN) | payer MEDICAID, BC, SELFPAY ==
[2021-11-22] VITALS (9 sets, daily range): BP systolic 101–132; BP diastolic 53–78; PULSE 74–114; RESP 13–27; TEMP 36.3–39.6; O2SAT 96–99; BMI 25.5; BMI 25.6
--- NOTE | 2021-11-22 17:45 | EDS_ITS ---
HPI History of Present Illness Chief Complaint: Wound Check Narrative Narrative: 55-year-old female with history of diabetes, Charcot foot on the right, presenting with reported fever of 103 last night. She states she also had 1 today. She took Tylenol prior to arrival. She states she has chills. She vomited earlier today. She states she was too shaky to check her blood sugar or to give herself any insulin. She does not report pain in her foot but there is some drainage. She states that she saw wound care on and was doing fine. Last surgery on her foot was in May by Dr. Gonzalez. Patient denies cough, shortness of breath. She denies urinary complaints. [facility] Medical History (Updated 11/22/21 @ 21:[address] Nika Connolly MD) Acute osteomyelitis of left foot Allergies Cellulitis of right lower limb Charcot's joint of right foot Chronic ulcer of right foot due to diabetes mellitus COVID-19 Diabetes mellitus with diabetic polyneuropathy DKA, type 2 History of MRSA infection Hypothyroidism Infectious tenosynovitis Malnutrition MRSA bacteremia Narcolepsy 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 Sleep disorder Type 2 diabetes mellitus with diabetic polyneuropathy Weakness Home Medications Levocetirizine Dihydrochloride [Xyzal] 5 mg PO DAILY allergy 09/25/16 [History Last Taken Unknown] armodafinil 150 mg tablet 150 mg PO BID to stay awake 09/25/16 [History Last Taken Unknown] levothyroxine 150 mcg tablet 125 mcg PO DAILY thyroid 09/25/16 [History Last Taken Unknown] liothyronine 25 mcg tablet 25 mcg PO DAILY thyroid 09/25/16 [History Last Taken Unknown] montelukast 10 mg tablet (Singulair) 10 mg PO DAILY allergy 09/25/16 [History Last Taken Unknown] baclofen 10 mg tablet 10 mg PO TID PRN muscle relax 01/01/21 [History Last Taken Unknown] fluticasone propionate 50 mcg/actuation nasal spray,suspension 1 spray intranasal BID PRN allergies 01/01/21 [History Last Taken Unknown] ibuprofen 200 mg tablet (Advil) 800 mg PO BID PRN pain and swelling 05/21/21 [History Last Taken Unknown] vancomycin 1.25 gram intravenous solution 1.25 g IV Q12H 40 days 05/30/21 [Rx Last Taken Unknown] sitagliptin 50 mg-metformin 500 mg tablet (Janumet) 1 tab PO ACHS 11/22/21 [History Last Taken Unknown] Allergy/AdvReac Type Severity Reaction Status Date / Time clindamycin Allergy Hives Verified 11/22/21 17:29 pregabalin [From Lyrica] Allergy Swelling Verified 11/22/21 17:29 bee venom protein (honey bee) AdvReac Anaphylaxis Verified 11/22/21 17:29 vancomycin AdvReac Other Verified 11/22/21 19:27 Family History (Updated 11/22/21 @ 19:[address] Nika Connolly MD) Father CVA (cerebral vascular accident) Clotting disorder Seizures Mother Osteoarthritis Other Diabetes Heart disease Hypertension Surgical History (Updated 11/22/21 @ 19:[address] Nika Connolly MD) History of ankle surgery History of back surgery History of cholecystectomy S/P nasal septoplasty S/P right knee arthroscopy S/P tonsillectomy and adenoidectomy Social History (Updated 11/22/21 @ 19:[address] Nika Connolly MD) Smoking Status: Former smoker how long ago did patient quit smoking: Quit 1981. alcohol intake: current alcohol intake frequency: holidays/special occasions only substance use type: does not use ROS ROS ED Constitutional Constitutional ED: Reports chills and fever(s) ENT ENT ED: Denies rhinorrhea or sore throat Cardiovascular Cardiovascular: Denies chest pain or palpitations Respiratory/Chest Respiratory/Chest: Denies cough or dyspnea Gastrointestinal Gastrointestinal: Reports nausea and vomiting; Denies abdominal pain Genitourinary Genitourinary ED: Denies dysuria or hematuria Musculoskeletal Musculoskeletal: Reports myalgias Integumentary Reports other Details: Erythema, warmth, drainage of right foot wound Neurologic Neurologic: Reports headache(s); Denies paresthesias EXAM Physical Exam Const Vital Signs: 11/22/21 17:27 11/22/21 18:15 11/22/21 18:27 Temperature 99.6 F H 99.8 F H Temperature Source Temporal Oral Pulse Rate 114 H 111 H 111 H Respiratory Rate 16 27 H 17 Blood Pressure 119/64 132/64 H 131/59 H Blood Pressure Mean 82 86 83 Pulse Ox 99 Oxygen Delivery Method Room Air 11/22/21 19:09 11/22/21 19:09 11/22/21 20:00 Temperature 103.2 F H 100.3 F H Temperature Source Oral Temporal Pulse Rate 98 98 101 H Respiratory Rate 18 18 18 Blood Pressure 128/78 H 128/78 H 114/53 L Blood Pressure Mean 94 94 73 Pulse Ox 99 99 97 Oxygen Delivery Method Room Air Room Air Room Air 11/22/21 21:00 11/22/21 21:00 Temperature 100.1 F H Temperature Source Temporal Pulse Rate 74 99 Respiratory Rate 16 22 H Blood Pressure 118/62 118/62 Blood Pressure Mean 80 80 Pulse Ox 98 96 Oxygen Delivery Method Room Air Room Air Positive well nourished General Appearance ED: NAD HEENT Reports moist mucous membranes normocephalic Chest Wall inspection of chest normal and palpation of chest normal Resp normal respiratory effort, no retractions and clear to auscultation bilaterally Auscultation: Negative for rales, rhonchi or wheezes Cardio regular rhythm Rate: tachycardic GI non-tender Neuro oriented x3, CN's II-XII intact bilaterally, moves all extremities and no sensory deficits noted Sensorium / Orientation: alert Psych mental status grossly normal Skin Skin Narrative: Surgical scar overlying the foot and a vertical lie up into the tibia. The foot itself has a dressing in place. When this is taken down there is a very small amount of drainage at the site. There is no fluctuance here. The foot appears swollen but there is no crepitance. MDM MDM MDM Narrative Medical decision making narrative: 55-year-old female presenting with concern for cellulitis on the right foot. She said fevers of 103 at all. She also has the chills and has been vomiting. Her heart rate is 114. Patient states she does not have any pain does not need pain. I offered her something for nausea but she states she was not nauseous. After I left the room she vomited and I gave her Zofran for this reason. Patient is afebrile here. She is given IV fluids and lab work is obtained. Because of her history of bacteremia sepsis work-up was started. CBC shows slight leukocytosis at 11.1. Hemoglobin stable at 11.2. Platelets normal at 3 86. PT/INR normal. Renal function and electrolytes within normal limits. Glucose is slightly elevated at 168 without anion gap. Lactic acid 1.4. Urinalysis slightly contaminated but not specifically looking infected. Sed rate elevated at 45. CRP elevated at 51.1. X-rays of the right foot and ankle do show a lot of degenerative changes on my interpretation. The radiologist does interpret this as atypical lytic lesions of the foot and ankle representing likely chronic osteomyelitis. There is patient's fever is now resolved. She is not vomiting anymore. 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 We will cover with broad-spectrum antibiotics. After speaking with the hospitalist we will cover her with vancomycin and Zosyn. Impression: 1. Cellulitis right foot 2. Osteomyelitis 3. Fever 4. Nausea/vomiting Lab Data Attestation: I reviewed the patient's lab results. Labs: Laboratory Results - last 24 hr 11/22/21 11/22/21 11/22/21 18:00 18:00 18:00 WBC 11.1 H RBC 3.72 L Hgb 11.2 L Hct 34.1 L MCV 91.7 MCH 30.1 MCHC 32.8 RDW Std Deviation 46.7 H RDW Coeff of Amos 13.9 Plt Count 386 MPV 9.1 Immature Gran % (Auto) 0.500 Neut % (Auto) 85.3 H Lymph % (Auto) 9.1 L Hand % (Auto) 4.5 Eos % (Auto) 0.1 Baso % (Auto) 0.5 Absolute Neuts (auto) 9.5 H Absolute Lymphs (auto) 1.01 Nucleated RBC % 0 ESR 45 H PT 14.0 INR 1.1 Sodium 136 Potassium 3.5 Chloride 103 Carbon Dioxide 24.0 Anion Gap 9 BUN 13 Creatinine 0.80 Estim Creat Clear Calc 79.21 Est GFR (MDRD) Af Amer 95 Est GFR (MDRD) Non-Af 79 BUN/Creatinine Ratio 16.2 Glucose 168 H Lactic Acid Calcium 9.1 Total Bilirubin 0.50 AST 18 ALT 22 Alkaline Phosphatase 185 H C-React Prot Ext Range 51.10 H Total Protein 7.7 Albumin 3.3 Globulin 4.4 H Albumin/Globulin Ratio 0.8 L Urine Color Urine Clarity Urine pH Ur Specific [place] Urine Protein Urine Glucose (UA) Urine Ketones Urine Occult Blood Urine Nitrite Urine Bilirubin Urine Urobilinogen Ur Leukocyte Esterase Urine RBC Urine WBC Ur Squamous Epith Cells Urine Bacteria Urine Mucus Acetone Level POC Glucose 11/22/21 11/22/21 11/22/21 18:00 18:05 18:07 WBC RBC Hgb Hct MCV MCH MCHC RDW Std Deviation RDW Coeff of Amos Plt Count MPV Immature Gran % (Auto) Neut % (Auto) Lymph % (Auto) Hand % (Auto) Eos % (Auto) Baso % (Auto) Absolute Neuts (auto) Absolute Lymphs (auto) Nucleated RBC % ESR PT INR Sodium Potassium Chloride Carbon Dioxide Anion Gap BUN Creatinine Estim Creat Clear Calc Est GFR (MDRD) Af Amer Est GFR (MDRD) Non-Af BUN/Creatinine Ratio Glucose Lactic Acid 1.4 Calcium Total Bilirubin AST ALT Alkaline Phosphatase C-React Prot Ext Range Total Protein Albumin Globulin Albumin/Globulin Ratio Urine Color Yellow Urine Clarity Sl. Cloudy Urine pH 5.0 Ur Specific [place] 1.020 Urine Protein 30 H Urine Glucose (UA) Normal Urine Ketones 50 H Urine Occult Blood 25 H Urine Nitrite Negative Urine Bilirubin Negative Urine Urobilinogen Normal Ur Leukocyte Esterase 500 H Urine RBC 0-5 SEEN Urine WBC 25-50 SEEN Ur Squamous Epith Cells 5-10 SEEN Urine Bacteria 1+ Urine Mucus 0 SEEN Acetone Level POC Glucose 143 H 11/22/21 18:15 WBC RBC Hgb Hct MCV MCH MCHC RDW Std Deviation RDW Coeff of Amos Plt Count MPV Immature Gran % (Auto) Neut % (Auto) Lymph % (Auto) Hand % (Auto) Eos % (Auto) Baso % (Auto) Absolute Neuts (auto) Absolute Lymphs (auto) Nucleated RBC % ESR PT INR Sodium Potassium Chloride Carbon Dioxide Anion Gap BUN Creatinine Estim Creat Clear Calc Est GFR (MDRD) Af Amer Est GFR (MDRD) Non-Af BUN/Creatinine Ratio Glucose Lactic Acid Calcium Total Bilirubin AST ALT Alkaline Phosphatase C-React Prot Ext Range Total Protein Albumin Globulin Albumin/Globulin Ratio Urine Color Urine Clarity Urine pH Ur Specific [place] Urine Protein Urine Glucose (UA) Urine Ketones Urine Occult Blood Urine Nitrite Urine Bilirubin Urine Urobilinogen Ur Leukocyte Esterase Urine RBC Urine WBC Ur Squamous Epith Cells Urine Bacteria Urine Mucus Acetone Level NEGATIVE POC Glucose Radiography Diagnostic Testing: Clinical Impression(s) from Imaging Studies Ankle X-Ray 11/22/21 18:40 IMPRESSION: 1. Old surgical fixation of the distal right fibular fracture, which appears to be healed. 2. No new fractures of the ankle joint. 3. Moderately prominent osteophytic degenerative changes dorsally at the talonavicular joint. 4. Moderate osteophytic degenerative changes dorsally and a 2.1 cm irregular lytic process involving the distal right tarsonavicular and the right second tarsal row. Electronically Signed: Moody Ambriz MD at 21:01 EDT , Chest X-Ray 11/22/21 18:40 IMPRESSION: 1. Left ventricular cardiac perforation without cardiomegaly or heart failure. 2. No other evidence of active cardiopulmonary disease. 3. No pneumonia, pneumonitis, bronchitis, or pulmonary mass lesions. 4. Normal osseous structures. Electronically Signed: Moody Ambriz MD at 21:03 EDT , Foot X-Ray 11/22/21 18:40 IMPRESSION: 1. Lytic process involving the intermediate or second cuneiform that extends into the base of the right second metatarsal, as well as the adjacent side of the first tarsal cuneiform with concurrent osteophytic degenerative changes-- suggestive of a chronic osteomyelitis. 2. No new fractures or dislocations. 3. Moderate dorsal degenerative changes of the talonavicular joint. 4. Orthopedically plated fracture distal right fibula, that appears to be in anatomic position inhaled. 5. Residue of a fracture of the proximal phalangeal segment of the right big toe. 6. Mild demineralization. Electronically Signed: Moody Ambriz MD at 21:12 EDT , Discharge Plan Triage Chief Complaint: Wound Check ED Provider: Robert Pack Dx/Rx/DC Orders Prescriptions: No Action liothyronine 25 MCG tablet 25 mcg PO DAILY Label Comments: TAKE 1 TABLET BY MOUTH EVERY DAY IN THE MORNING levothyroxine 150 MCG tablet 125 mcg PO DAILY montelukast [Singulair] 10 MG tablet 10 mg PO DAILY armodafinil 150 MG tablet 150 mg PO BID Label Comments: TAKE 1 TABLET TWICE DAILY Levocetirizine Dihydrochloride [Xyzal] 5 MG tablet 5 mg PO DAILY baclofen 10 mg Tablet 10 mg PO TID PRN (Reason: muscle relax) fluticasone propionate 50 mcg/actuation [place],Suspension 1 spray INTRANASAL BID PRN (Reason: allergies) ibuprofen [Advil] 200 mg Tablet 800 mg PO BID PRN (Reason: pain and swelling) vancomycin 1.25 gram recon soln 1.25 g IV Q12H 40 Days 0RF Rx Instructions: stop date 07/08/21 dx: MRSA osteomyelitis weekly bmp, cbc, and esr. Fax to [phone] routine picc care with heparin/saline flush per protocol Janumet 50-500 mg tablet 1 tab PO ACHS Primary Care Provider: Cuong Barros Referrals: Cuong Barros MD [Primary Care Provider] -
[2021-11-22] MEDS: Ondansetron 4 MG/2 ML Vial IV (17:59)
[2021-11-22] MEDS: 0.9% Normal Saline 1,000 ML 1000 ML IV (17:59)
[2021-11-22 18:13] LABS: Absolute Lymphocyte Count 1.01 X10^3/uL (0.83-4.51); Absolute Neutrophil Count 9.5 X10^3/uL (2.0-7.7); Basophil# 0.05 X10^3/uL; Basophil% 0.5 % (0-1); Eosinophil# 0.01 X10^3/uL; Eosinophils% 0.1 % (0-5); Hematocrit 34.1 % (37-47); Hemoglobin 11.2 g/dL (12.0-15.0); Lymphocyte # 1.01 X10^3/ul (0.83-4.51); Lymphocyte % 9.1 % (19-41); Mean Corp Hgb Conc 32.8 g/dL (32-36); Mean Corpuscular Hgb 30.1 pg (27.0-32.0); Mean Corpuscular Volume 91.7 fL (81-99); Mean Platelet Vol. 9.1 fl (6.2-12.0); Monocyte% 4.5 % (0-10); NRBC Flagged by Analyzer 0 % (0-5); Neutrophil # 9.47 X10^3/uL (2.7-7.7); Neutrophil % 85.3 % (47-70); Platelet Count 386 K/mm3 (150-450); RBC Distribution Width CV 13.9 % (11.6-14.6); RBC Distribution Width SD 46.7 fl (35.1-43.9); Red Blood Count 3.72 M/mm3 (4.2-5.4); White Blood Count 11.1 K/mm3 (4.4-11.0)
[2021-11-22 18:21] LABS: International Normalized Ratio 1.1
[2021-11-22 18:25] LABS: Bedside Glucose 143 mg/dL (74-106)
[2021-11-22 18:30] LABS: Erythrocyte Sedimentation Rate 45 mm/hr (0-30)
[2021-11-22 18:38] LABS: ALB/GLOB Ratio 0.8 RATIO (0.9-2.4); AST(SGOT) 18 U/L (15-37); Alanine Aminotransfer ALT/SGPT 22 U/L (13-56); Albumin, Serum 3.3 g/dL (3.2-5.0); Alkaline Phosphatase 185 U/L (45-117); Anion Gap 9 (5-15); BUN 13 mg/dL (7-18); BUN/Creat Ratio 16.2 RATIO (10-20); Calcium,Total 9.1 mg/dL (8.5-10.1); Chloride 103 mmol/L (98-107); EST Glomerular Filtration Rate 79 mL/min (>60); Est Glom Filt Rate - Afr Amer 95 mL/min (>60); Estimated Creatinine Clearance 79.21 ml/min; Globulin 4.4 g/dL (2.2-4.2); Glucose 168 mg/dL (74-106); Potassium 3.5 mmol/L (3.5-5.1); Protein, Total 7.7 g/dL (6.4-8.2); Sodium Level 136 mmol/L (136-145)
--- NOTE | 2021-11-22 18:40 | RAD_ITS ---
STUDY: RIGHT FOOT X-RAY SERIES OF 1845 HOURS ON 11/22/2021 CLINICAL: 55-year-old female with right foot pain. TECHNIQUE: 3 view(s) of the foot. COMPARISON: None. FINDINGS: There is no surgical fixation of the distal right fibular fracture that is now healed in anatomic position. The talus and calcaneus have a normal appearance. There is moderately prominent osteophytic degenerative changes dorsally at the talonavicular joint. There is a lytic process involving the intermediate or second cuneiform that extends into the base of the right second metatarsal, as well as the adjacent aspect of the first cuneiform.. Additional osteophytic degenerative changes are noted this site. This is suggestive of a site of chronic osteomyelitis. There is no new fractures or dislocations. There is deformity of the proximal phalangeal segment of the right first toe--which may represent residue of an old fracture. Mild demineralization is noted. RAD/Foot min 3 Views IMPRESSION: 1. Lytic process involving the intermediate or second cuneiform that extends into the base of the right second metatarsal, as well as the adjacent side of the first tarsal cuneiform with concurrent osteophytic degenerative changes-- suggestive of a chronic osteomyelitis. 2. No new fractures or dislocations. 3. Moderate dorsal degenerative changes of the talonavicular joint. 4. Orthopedically plated fracture distal right fibula, that appears to be in anatomic position inhaled. 5. Residue of a fracture of the proximal phalangeal segment of the right big toe. 6. Mild demineralization. Electronically Signed: Moody Ambriz MD at 21:12 EDT ,
--- NOTE | 2021-11-22 18:40 | RAD_ITS ---
STUDY: RIGHT ANKLE X-RAY SERIES-3 VIEWS OF 1841 HOURS ON 11/22/2021 REASON FOR EXAM: 55-year-old female with right ankle pain. TECHNIQUE: 3 view(s) of the ankle. COMPARISON: 11/06/2021 FINDINGS: There is a surgical screw and a 11.2 cm in length plate securing a right fibular fracture, which appears to be healed. The distal tibia has normal appearance. There is evidence of distal fibular or tibial or talar fractures. The ankle mortise is balanced. There is no evidence of arthritic or degenerative changes. There is moderately prominent osteophytic degenerative changes dorsally at the talonavicular joint. There are moderate osteophytic degenerative changes dorsally and a 2.1 cm in diameter lytic process involving the right distal tarsonavicular and the right second tarsal row. RAD/Ankle min 3 Views IMPRESSION: 1. Old surgical fixation of the distal right fibular fracture, which appears to be healed. 2. No new fractures of the ankle joint. 3. Moderately prominent osteophytic degenerative changes dorsally at the talonavicular joint. 4. Moderate osteophytic degenerative changes dorsally and a 2.1 cm irregular lytic process involving the distal right tarsonavicular and the right second tarsal row. Electronically Signed: Moody Ambriz MD at 21:01 EDT ,
--- NOTE | 2021-11-22 18:40 | RAD_ITS ---
STUDY: PORTABLE AP UPRIGHT X-RAY OF 1849 HOURS ON 11/22/2021 REASON FOR EXAM: 55-year-old female with fever. TECHNIQUE: A single view portable AP upright chest x-ray was performed per protocol. COMPARISON: None. FINDINGS: Normal osseous structures. Left ventricular cardiac configuration without cardiomegaly or heart failure. Mildly tortuous thoracic aorta. No pulmonary infiltrates, atelectasis, effusion, or pulmonary mass lesions. No pneumonia, pneumonitis or bronchitis. No subdiaphragmatic abnormalities. RAD/Chest 1 View (Portable) IMPRESSION: 1. Left ventricular cardiac perforation without cardiomegaly or heart failure. 2. No other evidence of active cardiopulmonary disease. 3. No pneumonia, pneumonitis, bronchitis, or pulmonary mass lesions. 4. Normal osseous structures. Electronically Signed: Moody Ambriz MD at 21:03 EDT ,
[2021-11-22] MEDS: Acetaminophen 500 MG Tablet 1000 MG PO (19:12)
--- NOTE | 2021-11-22 19:25 | ED.RN ---
Daughter reports Dr Gonzalez is the foot doctor for patient and she ggave them a heads up. She also reports the patient had a bad reaction to vanc in the past and had issues with her liver, added to list.
[2021-11-22 19:40] LABS: Lactic Acid 1.4 mmol/L (0.4-1.9)
[2021-11-22 19:56] LABS: Color, Urine Yellow (Yellow); Glucose, Dipstick Normal (Normal); Ketone-Dipstick 50 mg/dl (Negative); Leukocyte Esterase-Dipstick 500 /ul (Negative); Mucous, Urine 0 SEEN /hpf (<or=2+); Nitrite-Dipstick Negative (Negative); Occult Blood-Urine 25 /ul (Negative); Protein-Dipstick 30 mg/dl (Negative); Urine Bilirubin Dipstick Negative (Negative); Urine Clarity Sl. Cloudy (Clear); Urine Urobilinogen Normal (Normal)
[2021-11-22 20:14] LABS: Bacteria 1+ /hpf (None Seen); Red Blood Cells-Urine 0-5 SEEN /hpf (0-5); Squamous Epithelial Cells - UA 5-10 SEEN /hpf (5-10); White Blood Cells 25-50 SEEN /hpf (0-5)
--- NOTE | 2021-11-22 21:34 | PCM.HP.STD ---
HPI - General General Date of Admission: 11/22/21 Date of Service: 11/22/21 Chief Complaint: Fever, chills, nausea, emesis. HPI Narrative The patient is a 55 y/o F w/ PMHx: SHRADDHA, Hypothyroidism, Diabetes mellitus type II, Narcolepsy, Allergic rhinitis, Hx of OR 05/28/21 with right anterior leg abscess with infectious tenosynovitis and right foot infection with debridement of nonviable tissue, tendon right foot and ankle with I&D of the right leg including a fasciotomy discharged on 06/03/2021 complicated by MRSA bacteremia, osteomyelitis of the right foot with cultures with MRSA and Enterococcus with treatment at that time with IV vancomycin with wound VAC following operative intervention with negative TTE at that time who is been following with wound care clinic with hyperbaric oxygen treatments with most recent evaluation 11/20/[address] Jason Lewis with physical examination with noted ulceration right anterior lower extremity, right lateral foot medial foot cicatrix noted, ulcerative site secondary to prior surgical debridement with no localized signs of infection with ongoing Cherelle and DSD dressing, wash with soap and water, nonweightbearing right lower extremity with elevation with planned 1 week follow-up at that time who now presents to the [facility] ED on 11/22/21 with history of onset fever up to 103 at home the evening prior and also on day of presentation with self administration Tylenol prior to ED arrival with concurrent chills, nausea, emesis x 1, failure to take her home insulin regimen secondary to feeling poorly prompting ED evaluation as well as BL temporal headaches, throbbing. She notes her daughter and grandchildren live with her and they have been healthy. She reports being COVID vaccinated a booster x1. She also reports recent Wound Care visit with no issues at that time. Work-up in the ED included T96.7, heart rate 109, BP 120/78, respiratory rate 18, 99% on room air, CBC with WC 11.1, hemoglobin 11.2, platelet 386 with left shift, ESR 45, coags unremarkable, CMP with glucose 168, alk phos 185, CRP 51.10 otherwise not marked, acetone negative, rapid COVID antigen negative, blood culture x2 pending per ED, lactic acid 1.4, UA w/ specific gravity 1.020, urine protein 30, ketones 50, occult blood 25, negative nitrite, 500 leukocyte esterase, urine RBCs 25-50 with 1+ urine bacteria, right foot plain film with lytic process involving the intermittent second cuneiform extending to the base of the right second metatarsal as well as adjacent side of the first tarsal cuneiform with concurrent osteophytic degenerative changes suggestive of chronic osteomyelitis, moderate dorsal degenerative changes of the talonavicular joint, orthopedically plated fracture of the distal right fibula in anatomic position, residue of the fracture of the proximal phalangeal segment of the right big toe, right ankle plain film with old surgical fixation distal right fibular fracture appearing to be healed, moderately prominent osteophytic degenerative changes dorsally at the talonavicular joint, moderate osteophytic degenerative changes dorsally and a 2.1 cm irregular lytic process involving the distal right tarsal navicular and the right second tarsal row, chest x-ray with LV cardiac configuration without cardiomegaly or heart failure, no acute cardiopulmonary findings, wound culture pending per ED. In the ED patient ministered Zofran, normal saline bolus. [facility] Medical History (Updated 11/22/21 @ 21:[address] Nika Connolly MD) Acute osteomyelitis of left foot Allergies Cellulitis of right lower limb Charcot's joint of right foot Chronic ulcer of right foot due to diabetes mellitus COVID-19 Diabetes mellitus with diabetic polyneuropathy DKA, type 2 History of MRSA infection Hypothyroidism Infectious tenosynovitis Malnutrition MRSA bacteremia Narcolepsy 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 Sleep disorder Type 2 diabetes mellitus with diabetic polyneuropathy Weakness Home Medications Levocetirizine Dihydrochloride [Xyzal] 5 mg PO DAILY allergy 09/25/16 [History Last Taken Unknown] armodafinil 150 mg tablet 150 mg PO BID to stay awake 09/25/16 [History Last Taken Unknown] levothyroxine 150 mcg tablet 125 mcg PO DAILY thyroid 09/25/16 [History Last Taken Unknown] liothyronine 25 mcg tablet 25 mcg PO DAILY thyroid 09/25/16 [History Last Taken Unknown] montelukast 10 mg tablet (Singulair) 10 mg PO DAILY allergy 09/25/16 [History Last Taken Unknown] baclofen 10 mg tablet 10 mg PO TID PRN muscle relax 01/01/21 [History Last Taken Unknown] fluticasone propionate 50 mcg/actuation nasal spray,suspension 1 spray intranasal BID PRN allergies 01/01/21 [History Last Taken Unknown] ibuprofen 200 mg tablet (Advil) 800 mg PO BID PRN pain and swelling 05/21/21 [History Last Taken Unknown] vancomycin 1.25 gram intravenous solution 1.25 g IV Q12H 40 days 05/30/21 [Rx Last Taken Unknown] sitagliptin 50 mg-metformin 500 mg tablet (Janumet) 1 tab PO ACHS 11/22/21 [History Last Taken Unknown] Allergy/AdvReac Type Severity Reaction Status Date / Time clindamycin Allergy Hives Verified 11/22/21 17:29 pregabalin [From Lyrica] Allergy Swelling Verified 11/22/21 17:29 bee venom protein (honey bee) AdvReac Anaphylaxis Verified 11/22/21 17:29 vancomycin AdvReac Other Verified 11/22/21 19:27 Family History (Updated 11/22/21 @ 19:[address] Nika Connolly MD) Father CVA (cerebral vascular accident) Clotting disorder Seizures Mother Osteoarthritis Other Diabetes Heart disease Hypertension Surgical History (Updated 11/22/21 @ 19:[address] Nika Connolly MD) History of ankle surgery History of back surgery History of cholecystectomy S/P nasal septoplasty S/P right knee arthroscopy S/P tonsillectomy and adenoidectomy Social History (Updated 11/22/21 @ 19:[address] Nika Connolly MD) Smoking Status: Former smoker how long ago did patient quit smoking: Quit 1981. alcohol intake: current alcohol intake frequency: holidays/special occasions only substance use type: does not use ROS ROS Narrative Admission Review of Systems: CONSTITUTIONAL: No weight loss, + fever, chills, weakness or fatigue. HEENT: + Headache. Eyes: No visual loss, blurred vision, double vision or yellow sclerae. Ears, Nose, Throat: No hearing loss, sneezing, congestion, runny nose or sore throat. SKIN: No rash or itching, lesions, wounds. CARDIOVASCULAR: No chest pain, chest pressure or chest discomfort, palpitations, edema, orthopnea, syncopal events. RESPIRATORY: No shortness of breath, cough or sputum, wheezing, hemoptysis. GASTROINTESTINAL: + Anorexia, nausea, vomiting, No diarrhea, abdominal pain, melena, BRBPR. GENITOURINARY: No dysuria, frequency, urgency or retention. NEUROLOGICAL: No headache, dizziness, syncope, paralysis, ataxia, numbness or tingling in the extremities, focal weakness, change in bowel or bladder control, seizure. MUSCULOSKELETAL:+ muscle, back pain, joint pain or stiffness. HEMATOLOGIC: + anemia, bleeding or bruising. LYMPHATICS: No enlarged nodes. No history of splenectomy. PSYCHIATRIC: No history of depression or anxiety. ENDOCRINOLOGIC: No reports of sweating, cold or heat intolerance. No polyuria or polydipsia. ALLERGIES: + history of rhinitis. Vital Signs Vital Signs Vital Signs: 11/22/21 17:27 11/22/21 18:15 11/22/21 18:27 Temperature 99.6 F H 99.8 F H Temperature Source Temporal Oral Pulse Rate 114 H 111 H 111 H Respiratory Rate 16 27 H 17 Blood Pressure 119/64 132/64 H 131/59 H Blood Pressure Mean 82 86 83 Pulse Ox 99 Oxygen Delivery Method Room Air 11/22/21 19:09 11/22/21 19:09 11/22/21 20:00 Temperature 103.2 F H 100.3 F H Temperature Source Oral Temporal Pulse Rate 98 98 101 H Respiratory Rate 18 18 18 Blood Pressure 128/78 H 128/78 H 114/53 L Blood Pressure Mean 94 94 73 Pulse Ox 99 99 97 Oxygen Delivery Method Room Air Room Air Room Air 11/22/21 21:00 11/22/21 21:00 Temperature 100.1 F H Temperature Source Temporal Pulse Rate 74 99 Respiratory Rate 16 22 H Blood Pressure 118/62 118/62 Blood Pressure Mean 80 80 Pulse Ox 98 96 Oxygen Delivery Method Room Air Room Air Weight Weight: 168 lb Body Mass Index (BMI) 25.5 Physical Exam Narrative Physical Examination: General: Awake, alert, oriented x 3 and cooperative, laying in the ED bed, diet reticulocyte flushed appearance, ill-appearing. Skin: Flushed color, normal turgor, no icterus, no cyanosis with noted right lower extremity with very minimal distal serous discharge from the ulceration site, no erythema, lower extremities equally appropriately warm to touch. HEENT: AT/NC, EOMI, PERRLA, moderately dry MM, no carotid bruits or JVD noted. Lungs: Mild diminished, greater bases, appropriate effort, no rales, ronchi or wheezing. Heart: Mildly tachycardic with rhythm; no gallop, rub audible. Abdomen: Soft, NTTP, ND, normal BS, no HSM. Extremities: No cyanosis, no clubbing, see skin, right lower extremity Charcot foot. Neurological: Patient awake, alert, oriented as noted, cognitive function appears baseline intact; pupils equally reactive to light and accommodation, cranial nerves II-XII grossly normal, moving all 4 extremities, no focal deficits, strength mildly to moderately global decrease secondary to acute presentation Psychiatric: Affect appears fatigued, ill-appearing, no acute evidence of depressive or anxiety feelings. Results Lab / Micro Data Result Diagrams: 11/22/21 18:00 11/22/21 18:00 Labs: Laboratory Results - last 24 hr 11/22/21 18:00: WBC 11.1 H, RBC 3.72 L, Hgb 11.2 L, Hct 34.1 L, MCV 91.7, MCH 30.1, MCHC 32.8, RDW Std Deviation 46.7 H, RDW Coeff of Amos 13.9, Plt Count 386, MPV 9.1, Immature Gran % (Auto) 0.500, Neut % (Auto) 85.3 H, Lymph % (Auto) 9.1 L, [place] % (Auto) 4.5, Eos % (Auto) 0.1, Baso % (Auto) 0.5, Absolute Neuts (auto) 9.5 H, Absolute Lymphs (auto) 1.01, Nucleated RBC % 0, ESR 45 H 11/22/21 18:00: Sodium 136, Potassium 3.5, Chloride 103, Carbon Dioxide 24.0, Anion Gap 9, BUN 13, Creatinine 0.80, Estim Creat Clear Calc 79.21, Est GFR (MDRD) Af Amer 95, Est GFR (MDRD) Non-Af 79, BUN/Creatinine Ratio 16.2, Glucose 168 H, Calcium 9.1, Total Bilirubin 0.50, AST 18, ALT 22, Alkaline Phosphatase 185 H, C-React Prot Ext Range 51.10 H, Total Protein 7.7, Albumin 3.3, Globulin 4.4 H, Albumin/Globulin Ratio 0.8 L 11/22/21 18:00: PT 14.0, INR 1.1 11/22/21 18:00: Lactic Acid 1.4 11/22/21 18:05: POC Glucose 143 H 11/22/21 18:07: Urine Color Yellow, Urine Clarity Sl. Cloudy, Urine pH 5.0, Ur Specific Wilson 1.020, Urine Protein 30 H, Urine Glucose (UA) Normal, Urine Ketones 50 H, Urine Occult Blood 25 H, Urine Nitrite Negative, Urine Bilirubin Negative, Urine Urobilinogen Normal, Ur Leukocyte Esterase 500 H, Urine RBC 0-5 SEEN, Urine WBC 25-50 SEEN, Ur Squamous Epith Cells 5-10 SEEN, Urine Bacteria 1+, Urine Mucus 0 SEEN 11/22/21 18:15: Acetone Level NEGATIVE Micro: Microbiology 11/22/21 18:00 Nasal Secretion SARS-CoV-2 Antigen (Rapid) - Final Radiology Impression Ankle X-Ray 11/22/21 18:40 IMPRESSION: 1. Old surgical fixation of the distal right fibular fracture, which appears to be healed. 2. No new fractures of the ankle joint. 3. Moderately prominent osteophytic degenerative changes dorsally at the talonavicular joint. 4. Moderate osteophytic degenerative changes dorsally and a 2.1 cm irregular lytic process involving the distal right tarsonavicular and the right second tarsal row. Electronically Signed: Moody Ambriz MD at 21:01 EDT , Chest X-Ray 11/22/21 18:40 IMPRESSION: 1. Left ventricular cardiac perforation without cardiomegaly or heart failure. 2. No other evidence of active cardiopulmonary disease. 3. No pneumonia, pneumonitis, bronchitis, or pulmonary mass lesions. 4. Normal osseous structures. Electronically Signed: Moody Ambriz MD at 21:03 EDT , Foot X-Ray 11/22/21 18:40 IMPRESSION: 1. Lytic process involving the intermediate or second cuneiform that extends into the base of the right second metatarsal, as well as the adjacent side of the first tarsal cuneiform with concurrent osteophytic degenerative changes-- suggestive of a chronic osteomyelitis. 2. No new fractures or dislocations. 3. Moderate dorsal degenerative changes of the talonavicular joint. 4. Orthopedically plated fracture distal right fibula, that appears to be in anatomic position inhaled. 5. Residue of a fracture of the proximal phalangeal segment of the right big toe. 6. Mild demineralization. Electronically Signed: Moody Ambriz MD at 21:12 EDT , Assessment & Plan Assessment/Plan (1) Fever, unknown origin: PLAN: Plan The patient is a 55 y/o F w/ PMHx: SHRADDHA, Hypothyroidism, Diabetes mellitus type II, Narcolepsy, Allergic rhinitis, Hx of OR 05/28/21 with right anterior leg abscess with infectious tenosynovitis and right foot infection with debridement of nonviable tissue, tendon right foot and ankle with I&D of the right leg including a fasciotomy discharged on 06/03/2021 complicated by MRSA bacteremia, osteomyelitis of the right foot w/ recent evaluation 11/20/[address] Jason Lewis noted to be stable appearing who now presents to the [facility] ED on 11/22/21 with history of onset fever up to 103 at home the evening prior and also on day of presentation with self administration Tylenol prior to ED arrival with concurrent chills, nausea, emesis x 1. #1. Fever, Unclear exact Etiology, Possible Acute Complicated UTI (lower suspicion), Possible RLE Diabetic Foot Charcot infection (Lower suspicion), Possible Acute Viral Syndrome: Will admit to [facility] to be cautious as unclear cause, not certain RLE foot etiology, recent podiatry evaluation well appearing and no marked concerns on current evaluation, will maintain on IV vanc and zosyn in the interim to be cautious pending Podiatry evaluation of foot and review of her imaging as they are familiar with her, Wound Cx obtained in the ED, will obtain Wound MRSA PCR with patient with noted history, procalcitonin requested for trending, will obtain full respiratory viral panel, requested ED initiate COVID PCR, plan repeat CBC in AM, continue affected extremity elevation above heart when seated and in bed, monitor erythema outline with VS checks, consult patient podiatry team for their RLE assessment but again lower suspicion as source. #2. Chronic normocytic anemia: Admission hemoglobin 11.2, MCV 91.7, prior baseline hemoglobin noted to be 7-8 primarily, continue to trend. #3. Diabetes mellitus type II: Hold oral home regimen, continue home insulin regimen, hemoglobin A1c requested, nutrition consultation for education and teaching, ADA diet, accu checks w/ ISS. #4. Hypothyroidism: Continue home synthroid regimen. #5. Allergic rhinitis: We will continue patient home levocetirizine and fluticasone. #6. Narcolepsy: We will continue patient home armodafinil regimen. #7. SHRADDHA: CPAP q HS. #8. DVT prophylaxis: SCDs, lovenox. Charges/Coding Visit Charges OBSV E&M: [id number] Initial observation care L3
[2021-11-22 22:24] LABS: Procalcitonin 0.05 ng/mL (0.00-0.09)
[2021-11-23] VITALS (7 sets, daily range): BP systolic 107–142; BP diastolic 54–81; PULSE 77–110; RESP 16–18; TEMP 37.2–39.2; O2SAT 94–99
[2021-11-23] MEDS: 0.9% Normal Saline 1,000 ML 125 ML IV ×2 (00:18→08:41)
--- NOTE | 2021-11-23 00:46 | CPS ---
Pt refuses CPAP at this time
[2021-11-23 01:40] LABS: Bedside Glucose 149 mg/dL (74-106)
[2021-11-23 03:41] LABS: M R Staph aureus DNA By PCR Negative (Negative); Probe Check PASS; Specimen Processing Control PASS; Staph aureus DNA By PCR NEGATIVE (Negative)
[2021-11-23 05:46] LABS: Absolute Lymphocyte Count 0.87 X10^3/uL (0.83-4.51); Absolute Neutrophil Count 8.1 X10^3/uL (2.0-7.7); Basophil# 0.05 X10^3/uL; Basophil% 0.5 % (0-1); Hemoglobin 10.1 g/dL (12.0-15.0); Lymphocyte # 0.87 X10^3/ul (0.83-4.51); Mean Corp Hgb Conc 33.7 g/dL (32-36); Mean Corpuscular Hgb 29.7 pg (27.0-32.0); Mean Corpuscular Volume 88.2 fL (81-99); Monocyte# 0.58 X10^3/uL; NRBC Flagged by Analyzer 0 % (0-5); Neutrophil # 8.13 X10^3/uL (2.7-7.7); Platelet Count 321 K/mm3 (150-450); RBC Distribution Width CV 13.9 % (11.6-14.6); RBC Distribution Width SD 44.9 fl (35.1-43.9); White Blood Count 9.7 K/mm3 (4.4-11.0)
[2021-11-23] MEDS: Levothyroxine 125 MCG Tablet PO (05:55)
[2021-11-23] MEDS: Acetaminophen 325 MG Tablet 650 MG PO ×2 (06:10→14:27)
[2021-11-23] MEDS: Ondansetron 4 MG/2 ML Vial IV (06:10)
[2021-11-23] MEDS: 0.9% Saline Lock 10 ML Syringe IV ×2 (06:10→22:20)
[2021-11-23 06:23] LABS: ALB/GLOB Ratio 0.7 RATIO (0.9-2.4); AST(SGOT) 20 U/L (15-37); Alanine Aminotransfer ALT/SGPT 25 U/L (13-56); Albumin, Serum 2.7 g/dL (3.2-5.0); Alkaline Phosphatase 163 U/L (45-117); Anion Gap 11 (5-15); BUN 13 mg/dL (7-18); Calcium,Total 8.4 mg/dL (8.5-10.1); Chloride 105 mmol/L (98-107); Creatinine, Serum 0.65 mg/dL (0.55-1.02); EST Glomerular Filtration Rate 100 mL/min (>60); Est Glom Filt Rate - Afr Amer 121 mL/min (>60); Estimated Creatinine Clearance 97.49 ml/min; Glucose 158 mg/dL (74-106); Potassium 3.5 mmol/L (3.5-5.1); Protein, Total 6.7 g/dL (6.4-8.2); Sodium Level 138 mmol/L (136-145)
[2021-11-23 07:05] LABS: Bedside Glucose 222 mg/dL (74-106)
[2021-11-23] MEDS: Insulin Lispro 100 UNIT/ML INSULN.PEN SC ×2 (07:08→11:15)
--- NOTE | 2021-11-23 07:46 | CPS ---
pt does not wear a CPAP machine at home so she doesn't want to wear one here.
[2021-11-23 07:58] LABS: Hemoglobin A1c 5.5 % (3.8-5.6)
[2021-11-23] MEDS: Enoxaparin 40 MG/0.4 ML Syringe SC (09:56)
[2021-11-23] MEDS: Loratadine 10 MG Tablet PO (09:56)
--- NOTE | 2021-11-23 11:07 | PN.HOSP_ITS ---
Subjective Subjective Follow-up for foot infection and bacteremia. Objective Data Objective Data Vital Signs: Vital Signs Temp Pulse Resp BP Pulse Ox O2 Del Method 102.6 F H 101 H 16 120/57 L 94 Room Air 11/23/21 08:43 11/23/21 08:43 11/23/21 08:43 11/23/21 08:43 11/23/21 08:43 11/23/21 08:43 Oxygen Delivery Method Room Air Weight: 168 lb 13.985 oz Body Mass Index (BMI) 25.6 Intake & Output: Intake and Output for Last 24 Hours 11/21/21 11/22/21 11/23/21 23:59 23:59 23:59 Intake Total 1000 / 1000 1100 / 1100 Balance 1000 / 1000 1100 / 1100 Lab / Micro Data Result Diagrams: 11/23/21 05:22 11/23/21 05:22 Labs: Laboratory Results - last 24 hr 11/22/21 18:00: WBC 11.1 H, RBC 3.72 L, Hgb 11.2 L, Hct 34.1 L, MCV 91.7, MCH 30.1, MCHC 32.8, RDW Std Deviation 46.7 H, RDW Coeff of Amos 13.9, Plt Count 386, MPV 9.1, Immature Gran % (Auto) 0.500, Neut % (Auto) 85.3 H, Lymph % (Auto) 9.1 L, [place] % (Auto) 4.5, Eos % (Auto) 0.1, Baso % (Auto) 0.5, Absolute Neuts (auto) 9.5 H, Absolute Lymphs (auto) 1.01, Nucleated RBC % 0, ESR 45 H 11/22/21 18:00: Sodium 136, Potassium 3.5, Chloride 103, Carbon Dioxide 24.0, Anion Gap 9, BUN 13, Creatinine 0.80, Estim Creat Clear Calc 79.21, Est GFR (MDRD) Af Amer 95, Est GFR (MDRD) Non-Af 79, BUN/Creatinine Ratio 16.2, Glucose 168 H, Calcium 9.1, Total Bilirubin 0.50, AST 18, ALT 22, Alkaline Phosphatase 185 H, C-React Prot Ext Range 51.10 H, Total Protein 7.7, Albumin 3.3, Globulin 4.4 H, Albumin/Globulin Ratio 0.8 L 11/22/21 18:00: PT 14.0, INR 1.1 11/22/21 18:00: Lactic Acid 1.4 11/22/21 18:05: POC Glucose 143 H 11/22/21 18:07: Urine Color Yellow, Urine Clarity Sl. Cloudy, Urine pH 5.0, Ur Specific [place] 1.020, Urine Protein 30 H, Urine Glucose (UA) Normal, Urine Ketones 50 H, Urine Occult Blood 25 H, Urine Nitrite Negative, Urine Bilirubin Negative, Urine Urobilinogen Normal, Ur Leukocyte Esterase 500 H, Urine RBC 0-5 SEEN, Urine WBC 25-50 SEEN, Ur Squamous Epith Cells 5-10 SEEN, Urine Bacteria 1+, Urine Mucus 0 SEEN 11/22/21 18:15: Acetone Level NEGATIVE 11/22/21 18:15: Procalcitonin 0.05 11/22/21 19:18: S.aureus Protein A PCR NEGATIVE, MRSA (PCR) Negative 11/22/21 23:50: COVID-19 ([facility]) Not Detected 11/23/21 00:33: POC Glucose 149 H 11/23/21 05:22: WBC 9.7, RBC 3.40 L, Hgb 10.1 L, Hct 30.0 L, MCV 88.2, MCH 29.7, MCHC 33.7, RDW Std Deviation 44.9 H, RDW Coeff of Amos 13.9, Plt Count 321, MPV 9.0, Immature Gran % (Auto) 0.500, Neut % (Auto) 84.0 H, Lymph % (Auto) 9.0 L, [place] % (Auto) 6.0, Eos % (Auto) 0.0, Baso % (Auto) 0.5, Absolute Neuts (auto) 8.1 H, Absolute Lymphs (auto) 0.87, Nucleated RBC % 0 11/23/21 05:22: Sodium 138, Potassium 3.5, Chloride 105, Carbon Dioxide 22.0, A nion Gap 11, BUN 13, Creatinine 0.65, Estim Creat Clear Calc 97.49, Est GFR (MDRD) Af Amer 121, Est GFR (MDRD) Non-Af 100, BUN/Creatinine Ratio 20.0, Glucose 158 H, Calcium 8.4 L, Total Bilirubin 0.50, AST 20, ALT 25, Alkaline Phosphatase 163 H, Total Protein 6.7, Albumin 2.7 L, Globulin 4.0, Albumin/Globulin Ratio 0.7 L 11/23/21 05:22: Hemoglobin A1c 5.5 11/23/21 07:00: POC Glucose 222 H Micro: Microbiology 11/22/21 19:18 Wound - Right Foot Gram Stain - Final 11/22/21 18:00 Blood Culture (Wb) - Anticubital Left Blood Culture - Preliminary 11/22/21 23:50 Mucosa - Nasopharyngeal Respiratory Panel (PCR) - Final 11/22/21 18:00 Nasal Secretion SARS-CoV-2 Antigen (Rapid) - Final Radiography Diagnostic Testing: Radiology Impression Ankle X-Ray 11/22/21 18:40 IMPRESSION: 1. Old surgical fixation of the distal right fibular fracture, which appears to be healed. 2. No new fractures of the ankle joint. 3. Moderately prominent osteophytic degenerative changes dorsally at the talonavicular joint. 4. Moderate osteophytic degenerative changes dorsally and a 2.1 cm irregular lytic process involving the distal right tarsonavicular and the right second tarsal row. Electronically Signed: Moody Ambriz MD at 21:01 EDT , Chest X-Ray 11/22/21 18:40 IMPRESSION: 1. Left ventricular cardiac perforation without cardiomegaly or heart failure. 2. No other evidence of active cardiopulmonary disease. 3. No pneumonia, pneumonitis, bronchitis, or pulmonary mass lesions. 4. Normal osseous structures. Electronically Signed: Moody Ambriz MD at 21:03 EDT , Foot X-Ray 11/22/21 18:40 IMPRESSION: 1. Lytic process involving the intermediate or second cuneiform that extends into the base of the right second metatarsal, as well as the adjacent side of the first tarsal cuneiform with concurrent osteophytic degenerative changes-- suggestive of a chronic osteomyelitis. 2. No new fractures or dislocations. 3. Moderate dorsal degenerative changes of the talonavicular joint. 4. Orthopedically plated fracture distal right fibula, that appears to be in anatomic position inhaled. 5. Residue of a fracture of the proximal phalangeal segment of the right big toe. 6. Mild demineralization. Electronically Signed: Moody Ambriz MD at 21:12 EDT , Physical Exam Narrative Patient having fever since Wednesday. Noticed 103 Fahrenheit at home. Here 102 F. Physical exam General: Alert, Oriented x3, Cooperative HEENT: Atraumatic, PERRLA, EOMI, Normocephalic Oral: No Gingival or Mucosal Lesions/ Ulcerations Neck: Supple, No JVD, Negative Carotid Bruits Lungs: Air entry diminished in bilateral lung bases. No crepitation/rhonchi Cardiovascular: Regular rate, Regular Rhythm, Normal S1, Normal S2, No murmurs Abdomen: Bowel Sounds Present, Soft, Non Tender, Non-Distended : No renal angle tenderness. No suprapubic tenderness. Extremities: No edema, Capillary Refill Less than 3 Seconds Skin: History of RIGHT foot surgical scar, May 2021, superficial ulcer with minimal drainage with erythema, cellulitis Musculoskeletal: No Tenderness to Palpation of Joints or Extremities, right foot deformity, charchot joint Neurological: Cranial nerves II-XII grossly intact, DTR 2+/4. Loss of sensation in right foot, chronic Psych/Mental Status: Flat affect. Assessment & Plan Assessment/Plan (1) Fever, unknown origin: PLAN: Plan The patient is a 55 y/o F with with multiple comorbidities including history of right leg abscess, infectious tenosynovitis/foot infection/abscess with operative incision and drainage, debridement in May 2021 including fasciotomy. Patient has history of MRSA bacteremia, osteomyelitis of right foot as discharge diagnosis that time. 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 This time admitted with fever T100 3. At home, chills, vomiting #1. Acute on chronic right foot soft tissue infection/cellulitis with history of MRSA osteomyelitis: Currently patient not having features of sepsis, no 2 sepsis related organ dysfunction. Blood culture shows preliminary gram-positive cocci. Prelim wound culture growing GNR lactose hand chain maker and gram-positive organism. Clinically most likely it is MRSA with past history. Patient has history of back reduced kidney failure during previous hospital in May therefore IV antibiotic changed to daptomycin. Continue IV Zosyn. I talked to infectious disease on-call Dr. Paez to get approval of IV daptomycin. Patient clinically does not have new urinary tract symptoms including dysuria. UA shows LE 500, 1+ bacteria, WBC 25?50 cells. Urine culture is ordered #2. Chronic normocytic anemia: Admission hemoglobin 11.2, MCV 91.7, prior baseline hemoglobin noted to be 7-8 gram percent. Monitor CBC. #3. Diabetes mellitus type II: Hold oral home regimen, continue home insulin regimen, hemoglobin A1c 5.5. Accu-Chek insulin coverage Humalog sliding scale. Glucose is elevated to 220, to 190. Lantus insulin is started #4. Hypothyroidism: Continue home synthroid regimen. #5. Allergic rhinitis: continue patient home levocetirizine and fluticasone. #6. Narcolepsy: continue patient home armodafinil regimen. #7. SHRADDHA: CPAP q HS. #8. DVT prophylaxis: SCDs, lovenox. Total time of the visit including total time spent in counseling or coordination of care, (more than 50% of the total time, spent in obtaining medical information from nurses and other ancillary care providers,explaining to the patient about labs, imaging, diagnosis and management), discussion with ID, pharmacist, clinical update given to the patient's daughter present in the room, review of labs and imaging is 40 minutes. Microbiology Past 72 Hours 11/22/21 18:00 Blood Culture (Wb) - Right Hand Blood Culture - Preliminary 11/22/21 19:18 Wound - Right Foot Gram Stain - Final 11/22/21 19:18 Wound - Right Foot Wound Culture - Preliminary GNR lactose hand chain maker Gram positive organism 11/22/21 18:00 Blood Culture (Wb) - Anticubital Left Blood Culture - Pr eliminary 11/22/21 23:50 Mucosa - Nasopharyngeal Respiratory Panel (PCR) - Final 11/22/21 18:00 Nasal Secretion SARS-CoV-2 Antigen (Rapid) - Final Laboratory Results 11/22/21 18:00: WBC 11.1 H, RBC 3.72 L, Hgb 11.2 L, Hct 34.1 L, MCV 91.7, MCH 30.1, MCHC 32.8, RDW Std Deviation 46.7 H, RDW Coeff of Amos 13.9, Plt Count 386, MPV 9.1, Immature Gran % (Auto) 0.500, Neut % (Auto) 85.3 H, Lymph % (Auto) 9.1 L, [place] % (Auto) 4.5, Eos % (Auto) 0.1, Baso % (Auto) 0.5, Absolute Neuts (auto) 9.5 H, Absolute Lymphs (auto) 1.01, Nucleated RBC % 0, ESR 45 H 11/22/21 18:00: Sodium 136, Potassium 3.5, Chloride 103, Carbon Dioxide 24.0, Anion Gap 9, BUN 13, Creatinine 0.80, Estim Creat Clear Calc 79.21, Est GFR (MDRD) Af Amer 95, Est GFR (MDRD) Non-Af 79, BUN/Creatinine Ratio 16.2, Glucose 168 H, Calcium 9.1, Total Bilirubin 0.50, AST 18, ALT 22, Alkaline Phosphatase 185 H, C-React Prot Ext Range 51.10 H, Total Protein 7.7, Albumin 3.3, Globulin 4.4 H, Albumin/Globulin Ratio 0.8 L 11/22/21 18:00: PT 14.0, INR 1.1 11/22/21 18:00: Lactic Acid 1.4 11/22/21 18:05: POC Glucose 143 H 11/22/21 18:07: Urine Color Yellow, Urine Clarity Sl. Cloudy, Urine pH 5.0, Ur Specific [place] 1.020, Urine Protein 30 H, Urine Glucose (UA) Normal, Urine Ketones 50 H, Urine Occult Blood 25 H, Urine Nitrite Negative, Urine Bilirubin Negative, Urine Urobilinogen Normal, Ur Leukocyte Esterase 500 H, Urine RBC 0-5 SEEN, Urine WBC 25-50 SEEN, Ur Squamous Epith Cells 5-10 SEEN, Urine Bacteria 1+, Urine Mucus 0 SEEN 11/22/21 18:15: Acetone Level NEGATIVE 11/22/21 18:15: Procalcitonin 0.05 11/22/21 19:18: S.aureus Protein A PCR NEGATIVE, MRSA (PCR) Negative 11/22/21 23:50: COVID-19 ([facility]) Not Detected 11/23/21 00:33: POC Glucose 149 H 11/23/21 05:22: WBC 9.7, RBC 3.40 L, Hgb 10.1 L, Hct 30.0 L, MCV 88.2, MCH 29.7, MCHC 33.7, RDW Std Deviation 44.9 H, RDW Coeff of Amos 13.9, Plt Count 321, MPV 9.0, Immature Gran % (Auto) 0.500, Neut % (Auto) 84.0 H, Lymph % (Auto) 9.0 L, [place] % (Auto) 6.0, Eos % (Auto) 0.0, Baso % (Auto) 0.5, Absolute Neuts (auto) 8.1 H, Absolute Lymphs (auto) 0.87, Nucleated RBC % 0 11/23/21 05:22: Sodium 138, Potassium 3.5, Chloride 105, Carbon Dioxide 22.0, Anion Gap 11, BUN 13, Creatinine 0.65, Estim Creat Clear Calc 97.49, Est GFR (MDRD) Af Amer 121, Est GFR (MDRD) Non-Af 100, BUN/Creatinine Ratio 20.0, Glucose 158 H, Calcium 8.4 L, Total Bilirubin 0.50, AST 20, ALT 25, Alkaline Ph osphatase 163 H, Total Protein 6.7, Albumin 2.7 L, Globulin 4.0, Albumin/Globulin Ratio 0.7 L 11/23/21 05:22: Hemoglobin A1c 5.5 11/23/21 07:00: POC Glucose 222 H 11/23/21 11:11: POC Glucose 190 H Charges/Coding Visit Charges Inpatient E&M: 30055 Subs Hosp L3
[2021-11-23 11:20] LABS: Bedside Glucose 190 mg/dL (74-106)
--- NOTE | 2021-11-23 15:10 | CON.PCM_ITS ---
Assessment & Plan Assessment/Plan (1) Non-pressure 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: (2) Type 2 diabetes mellitus with foot ulcer: QUALIFIERS: Diabetes mellitus halfway insulin use: with psychological operations officer use Qualified Code(s): E11.621 - Type 2 diabetes mellitus with foot ulcer; L97.509 - Non-pressure chronic ulcer of other part of unspecified foot with unspecified severity; Z79.4 - tutoring assistant (current) use of insulin (3) Fever, unknown origin: (4) Diabetes mellitus with diabetic polyneuropathy: QUALIFIERS: Diabetes mellitus psychological operations officer insulin use: without psychological operations officer use Diabetes mellitus type: type 2 Qualified Code(s): E11.42 - Type 2 diabetes mellitus with diabetic polyneuropathy (5) 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: (6) Chronic ulcer of right foot due to diabetes mellitus: (7) Charcot's joint of right foot: (8) Hypothyroidism: QUALIFIERS: Hypothyroidism type: unspecified Qualified Code(s): E03.9 - Hypothyroidism, unspecified PLAN: Plan Patient seen and evaluated Her right lower extremity anterior ulceration from wound care visit 11/20/2021 continues to demonstrate good progression in healing with proximal portions closed and most distal portions closed with only small dorsal area on the dorsal foot remaining. Last surgical intervention was 05/28/2021 in which a wide debridement was performed of medial, lateral, and anterior lower extremity compartment of the foot. At that time patient had undergone 8 weeks of IV antibiotics. She started with vancomycin and was switched to daptomycin completing her course with her PICC line pulled on 07/09/2021. She was following in wound center and completed HBO dives in October with weekly visits for debridements and advanced wound care product grafting. I examined right lower extremity dorsal foot ulceration today 11/23/2021 which measures 1.7 cm x 1.6 cm x 0.1 cm. Ulceration has healthy red granular layer. Ulcerative site demonstrates no palpable fluctuance, expressible purulence, malodor, no lymphangitis, or other localized signs of infection. Surrounding skin is atrophic. She demonstrates stable cicatrix noted medial and lateral side of the foot. Patient is currently on IV antibiotics Cubicin/Zosyn with white count decreasing from 11.1-9.7 currently. ESR 45, CRP 51. Blood culture demonstrates gram-positive cocci, wound culture demonstrates +1 gram-negative felix lactose chief engineer research and +3 gram-positive cocci. Urine analysis is cloudy with leukocyte esterase of 500, 25-50 WBC seen, and +1 bacteria. I believe her FOU is due to a UTI. Radiographs of right foot from 11/06/2021: Degenerative changes and sclerotic changes of the tarsal articulations. Degenerative arthrosis of metatarsal phalangeal joint of the great toe. Stable exam Radiographs of the right foot from 11/22/2021: A lytic process involving intermediate or second cuneiform extending to the base of the second met and adjacent medial cuneiform. Additional osteophytic degenerative changes of the site suggestive of a chronic osteomyelitis. I feel the report from 11/22/2021 demonstrates a avascular necrosis type of process at that intermediate cuneiform given the site does not probe to bone or have any sinus tracking and her wound is superficial with no other localized signs of infection. Podiatry will continue to monitor for any changes. I am recommending cam walker to be applied to right lower extremity for ambulation purposes. For long-term ambulation purposes we will look at obtaining an AFO so that she may ambulate with this in shoe gear. Hemoglobin A1c 5.5% she continues to do well in managing her diabetes. Wound site dressed today with Adaptic and dry sterile dressing. Medicine currently following for medical management, this is greatly appreciated. Infectious disease notified will see patient 11/24/2021. Podiatry will continue to follow and monitor for any changes to her right lower extremity. Please call for any questions or concerns Jr. Susan Dent.P.M. [facility] [phone] Note: [employer] speech recognition ear nose throat surgeon software was used to create portions of this document. Sound-alike and misspelled words, as well as other t ranscription errors may be contained in the documentation. HPI Consult Data Date of Consult: 11/23/21 HPI Narrative HPI Narrative: FREEMAN MOCTEZUMA, is a 55 F who presents to [facility] ED with fever of unknown origin. Patient states after seeing me in the wound care center on 11/20/2021, she was doing fine. She states that Wednesday evening she developed a fever of 103 ?F with some vomiting. She presented to the ED on 11/22/2021 for concern of cellulitis with fever and some vomiting. Blood culture, wound culture, and urine culture were obtained while in ED. WBC 11.1 during her ED stay she was started on Zosyn and admitted. She is seen bedside today 11/23/2021 resting with daughter present. Patient states that she does not feel good and is unsure why. She admits to some nausea, history of vomiting in ED none current, and fever in the ED. She denies any pain in her foot or leg or any purulent drainage from her dorsal foot wound since her last wound care visit. She has no further complaints today. [facility] Medical History (Updated 11/22/21 @ 22:39 by Tatum Vargas) Acute osteomyelitis of left foot Allergies Asthma Cellulitis of right lower limb Charcot's joint of right foot Chronic ulcer of right foot due to diabetes mellitus COVID-19 Diabetes Diabetes mellitus with diabetic polyneuropathy DKA, type 2 Former smoker History of MRSA infection Hypothyroidism Infectious tenosynovitis Malnutrition MRSA bacteremia Narcolepsy 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 Sleep disorder Type 2 diabetes mellitus with diabetic polyneuropathy Weakness Home Medications armodafinil 150 mg tablet 150 mg PO BID to stay awake 09/25/16 [History Last Taken Unknown] liothyronine 25 mcg tablet 25 mcg PO DAILY thyroid 09/25/16 [History Last Taken Unknown] montelukast 10 mg tablet (Singulair) 10 mg PO QHS allergy 09/25/16 [History Last Taken Unknown] baclofen 10 mg tablet 10 mg PO TID PRN muscle relax 01/01/21 [History Last Taken Unknown] fluticasone propionate 50 mcg/actuation nasal spray,suspension 1 spray intranasal BID PRN allergies 01/01/21 [History Last Taken Unknown] ibuprofen 200 mg tablet (Advil) 800 mg PO BID 05/21/21 [History Last Taken Unknown] levocetirizine 5 mg tablet 1 tab PO DAILY 11/22/21 [History Last Taken Unknown] levothyroxine 125 mcg tablet 125 mcg PO DAILY 11/22/21 [History Last Taken Unknown] sitagliptin 50 mg-metformin 500 mg tablet (Janumet) 1 tab PO DAILY 11/22/21 [History Last Taken Unknown] Allergy/AdvReac Type Severity Reaction Status Date / Time clindamycin Allergy Hives Verified 11/22/21 17:29 pregabalin [From Lyrica] Allergy Swelling Verified 11/22/21 17:29 bee venom protein (honey bee) AdvReac Anaphylaxis Verified 11/22/21 17:29 vancomycin AdvReac Other Verified 11/22/21 22:41 Family History (Updated 11/22/21 @ 19:[address] Nika Connolly MD) Father CVA (cerebral vascular accident) Clotting disorder Seizures Mother Osteoarthritis Other Diabetes Heart disease Hypertension Surgical History History of ankle surgery History of back surgery History of cholecystectomy S/P nasal septoplasty S/P right knee arthroscopy S/P tonsillectomy and adenoidectomy Social History (Updated 11/22/21 @ 19:[address] Nika Connolly MD) Smoking Status: Former smoker how long ago did patient quit smoking: Quit 1981. alcohol intake: current alcohol intake frequency: holidays/special occasions only substance use type: does not use ROS Constitutional Constitutional: Reports chills and fever(s); Denies change in weight or headach e(s) Eyes Eyes: Denies diplopia, itchy eyes or loss of vision ENT HEENT: Denies nasal congestion, nasal discharge or sore throat Cardiovascular Cardiovascular: Denies chest pain, claudication, cold extremities or dyspnea Respiratory/Chest Respiratory/Chest: Denies chest congestion, chest tightness, cough or dyspnea Gastrointestinal Gastrointestinal: Reports nausea and vomiting; Denies abdominal pain, constipation or diarrhea Genitourinary Genitourinary: Denies dysuria, hematuria, urinary frequency, urinary hesitancy or urinary incontinence Musculoskeletal Musculoskeletal: Reports numbness and tingling; Denies joint pain, joint stiffness or joint swelling Integumentary Integumentary: Denies jaundice, lesions or rash Neurologic Neurologic: Denies dizziness, headache(s) or seizures Psychiatric Psychiatric: Denies anxiety or depression Endocrine Endocrinology: Denies cold intolerance, heat intolerance, polydipsia or polyphagia Hematologic/Lymphatic Hematologic/Lymphatic: Denies easy bleeding or easy bruising Allergic/Immunologic Allergic/Immunologic: Denies rhinitis, urticaria or asthma Physical Exam Const alert, oriented x3 and no apparent distress General Appearance: comfortable and lethargic HEENT normocephalic Eyes General Eye: normal appearance of both eyes Neck General: normal visual inspection Lymph Lymphatic: no lymphadenopathy noted and no lymphedema noted Resp normal respiratory effort Cardio regular rate and regular rhythm GI soft to palpation, non-tender and non-distended Back/Spine no CVA tenderness Extremity normal capillary refill, no joint enlargement, no calf tenderness and no pedal edema Peripheral Pulses: Yes posterior tibial pulses present right and dorsalis pedis pulses present right Skin no rashes or lesions noted, skin turgor normal and no jaundice Wound Narrative: Ulceration site to the right anterior lower extremity.? Right lateral foot and medial foot cicatrix noted.? Surrounding skin is intact, supple, and atrophic.? Ulcerative site is a Gonzalez grade 3 secondary to a previous surgical debridement of an abscess of the foot and anterior compartment of the lower extremity.? Ulcerative site measures 1.7 cm x 1.6 cm x 0.1 cm to the dorsal foot. This ulcerative site demonstrates no palpable fluctuance, no expressible purulent drainage, site does not probe to bone, and displays no localized signs of infection. Neuro oriented x3 and moves all extremities Psych cooperative and affect normal Lab / Micro Data Result Diagrams: 11/23/21 05:22 11/23/21 05:22 Labs: Laboratory Results - last 24 hr 11/22/21 18:00: WBC 11.1 H, RBC 3.72 L, Hgb 11.2 L, Hct 34.1 L, MCV 91.7, MCH 30.1, MCHC 32.8, RDW Std Deviation 46.7 H, RDW Coeff of Amos 13.9, Plt Count 386, MPV 9.1, Immature Gran % (Auto) 0.500, Neut % (Auto) 85.3 H, Lymph % (Auto) 9.1 L, Rooks % (Auto) 4.5, Eos % (Auto) 0.1, Baso % (Auto) 0.5, Absolute Neuts (auto) 9.5 H, Absolute Lymphs (auto) 1.01, Nucleated RBC % 0, ESR 45 H 11/22/21 18:00: Sodium 136, Potassium 3.5, Chloride 103, Carbon Dioxide 24.0, Anion Gap 9, BUN 13, Creatinine 0.80, Estim Creat Clear Calc 79.21, Est GFR (MDRD) Af Amer 95, Est GFR (MDRD) Non-Af 79, BUN/Creatinine Ratio 16.2, Glucose 168 H, Calcium 9.1, Total Bilirubin 0.50, AST 18, ALT 22, Alkaline Phosphatase 185 H, C-React Prot Ext Range 51.10 H, Total Protein 7.7, Albumin 3.3, Globulin 4.4 H, Albumin/Globulin Ratio 0.8 L 11/22/21 18:00: PT 14.0, INR 1.1 11/22/21 18:00: Lactic Acid 1.4 11/22/21 18:05: POC Glucose 143 H 11/22/21 18:07: Urine Color Yellow, Urine Clarity Sl. Cloudy, Urine pH 5.0, Ur Specific Roby 1.020, Urine Protein 30 H, Urine Glucose (UA) Normal, Urine Ketones 50 H, Urine Occult Blood 25 H, Urine Nitrite Negative, Urine Bilirubin Negative, Urine Urobilinogen Normal, Ur Leukocyte Esterase 500 H, Urine RBC 0-5 SEEN, Urine WBC 25-50 SEEN, Ur Squamous Epith Cells 5-10 SEEN, Urine Bacteria 1+, Urine Mucus 0 SEEN 11/22/21 18:15: Acetone Level NEGATIVE 11/22/21 18:15: Procalcitonin 0.05 11/22/21 19:18: S.aureus Protein A PCR NEGATIVE, MRSA (PCR) Negative 11/22/21 19:40: Urine Color Cancelled, Urine Clarity Cancelled, Urine pH Cancelled, Ur Specific Roby Cancelled, U Specif Grav (Refrac) Cancelled, Urine Protein Cancelled, Urine Glucose (UA) Cancelled, Urine Ketones Cancelled, Urine Occult Blood Cancelled, Urine Nitrite Cancelled, Urine Bilirubin Cancelled, Urine Urobilinogen Cancelled, Ur Leukocyte Esterase Cancelled, Urine RBC Cancelled, Urine WBC Cancelled, Ur Squamous Epith Cells Cancelled, Ur Transition Epith Cell Cancelled, Ur Renal Epithelial Cell Cancelled, Calcium Oxalate Crystal Cancelled, Uric Acid Crystals Cancelled, Triple Phos Crystals Cancelled, Other Crystals Cancelled, Amorphous Sediment Cancelled, Urine Bacteria Cancelled, Hyaline Casts Cancelled, Fine Granular Casts Cancelled, Coarse Granular Casts Cancelled, Waxy Casts Cancelled, RBC Casts Cancelled, WBC Casts Cancelled, Urine Mucus Cancelled, Urine Trichomonas Cancelled, Urine Yeast Cancelled 11/22/21 23:50: COVID-19 (LAUREN) Not Detected 11/23/21 00:33: POC Glucose 149 H 11/23/21 05:22: WBC 9.7, RBC 3.40 L, Hgb 10.1 L, Hct 30.0 L, MCV 88.2, MCH 29.7, MCHC 33.7, RDW Std Deviation 44.9 H, RDW Coeff of Amos 13.9, Plt Count 321, MPV 9.0, Immature Gran % (Auto) 0.500, Neut % (Auto) 84.0 H, Lymph % (Auto) 9.0 L, Rooks % (Auto) 6.0, Eos % (Auto) 0.0, Baso % (Auto) 0.5, Absolute Neuts (auto) 8.1 H, Absolute Lymphs (auto) 0.87, Nucleated RBC % 0 11/23/21 05:22: Sodium 138, Potassium 3.5, Chloride 105, Carbon Dioxide 22.0, Anion Gap 11, BUN 13, Creatinine 0.65, Estim Creat Clear Calc 97.49, Est GFR (MDRD) Af Amer 121, Est GFR (MDRD) Non-Af 100, BUN/Creatinine Ratio 20.0, Glucose 158 H, Calcium 8.4 L, Total Bilirubin 0.50, AST 20, ALT 25, Alkaline Phosphatase 163 H, Total Protein 6.7, Albumin 2.7 L, Globulin 4.0, Albumin/Globulin Ratio 0.7 L 11/23/21 05:22: Hemoglobin A1c 5.5 11/23/21 07:00: POC Glucose 222 H 11/23/21 11:11: POC Glucose 190 H Micro: Microbiology 11/22/21 18:00 Blood Culture (Wb) - Right Hand Blood Culture - Preliminary 11/22/21 19:18 Wound - Right Foot Gram Stain - Final 11/22/21 19:18 Wound - Right Foot Wound Culture - Preliminary GNR lactose chief engineer research Gram positive organism 11/22/21 18:00 Blood Culture (Wb) - Anticubital Left Blood Culture - Preliminary 11/22/21 23:50 Mucosa - Nasopharyngeal Respiratory Panel (PCR) - Final 11/22/21 18:00 Nasal Secretion SARS-CoV-2 Antigen (Rapid) - Final Radiology Impression Ankle X-Ray 11/22/21 18:40 IMPRESSION: 1. Old surgical fixation of the distal right fibular fracture, which appears to be healed. 2. No new fractures of the ankle joint. 3. Moderately prominent osteophytic degenerative changes dorsally at the talonavicular joint. 4. Moderate osteophytic degenerative changes dorsally and a 2.1 cm irregular lytic process involving the distal right tarsonavicular and the right second tarsal row. Electronically Signed: Moody Ambriz MD at 21:01 EDT , Chest X-Ray 11/22/21 18:40 IMPRESSION: 1. Left ventricular cardiac perforation without cardiomegaly or heart failure. 2. No other evidence of active cardiopulmonary disease. 3. No pneumonia, pneumonitis, bronchitis, or pulmonary mass lesions. 4. Normal osseous structures. Electronically Signed: Moody Ambriz MD at 21:03 EDT Reading Location ID and State: [facility] / [place] Tel , Service support , Foot X-Ray 11/22/21 18:40 IMPRESSION: 1. Lytic process involving the intermediate or second cuneiform that extends into the base of the right second metatarsal, as well as the adjacent side of the first tarsal cuneiform with concurrent osteophytic degenerative changes-- suggestive of a chronic osteomyelitis. 2. No new fractures or dislocations. 3. Moderate dorsal degenerative changes of the talonavicular joint. 4. Orthopedically plated fracture distal right fibula, that appears to be in anatomic position inhaled. 5. Residue of a fracture of the proximal phalangeal segment of the right big toe. 6. Mild demineralization. Electronically Signed: Moody Ambriz MD at 21:12 EDT ,
[2021-11-23] MEDS: 0.9% Normal Saline 1,000 ML 100 ML IV (16:21)
[2021-11-23 16:35] LABS: Bedside Glucose 136 mg/dL (74-106)
[2021-11-23] MEDS: Montelukast 10 MG Tablet PO (22:19)
[2021-11-23 23:46] LABS: Bedside Glucose 148 mg/dL (74-106)
[2021-11-24] MEDS: Acetaminophen 325 MG Tablet 650 MG PO (01:04)
[2021-11-24 01:43] VITALS: BP 122/69; PULSE 87; RESP 18; TEMP 37.5; O2SAT 96
[2021-11-24] MEDS: 0.9% Normal Saline 1,000 ML 100 ML IV (01:46)
[2021-11-24 05:22] VITALS: BP 108/62; PULSE 76; RESP 16; TEMP 36.8; O2SAT 98
[2021-11-24] MEDS: Levothyroxine 125 MCG Tablet PO (05:25)
[2021-11-24 06:56] LABS: Bedside Glucose 94 mg/dL (74-106)
[2021-11-24 07:00] LABS: Absolute Lymphocyte Count 1.61 X10^3/uL (0.83-4.51); Absolute Neutrophil Count 5.1 X10^3/uL (2.0-7.7); Basophil# 0.03 X10^3/uL; Basophil% 0.4 % (0-1); Eosinophils% 1.3 % (0-5); Hematocrit 26.6 % (37-47); Hemoglobin 8.7 g/dL (12.0-15.0); Lymphocyte # 1.61 X10^3/ul (0.83-4.51); Lymphocyte % 21.6 % (19-41); Mean Corp Hgb Conc 32.7 g/dL (32-36); Mean Corpuscular Hgb 29.7 pg (27.0-32.0); Mean Corpuscular Volume 90.8 fL (81-99); Monocyte# 0.56 X10^3/uL; Monocyte% 7.5 % (0-10); NRBC Flagged by Analyzer 0 % (0-5); Neutrophil # 5.12 X10^3/uL (2.7-7.7); Neutrophil % 68.8 % (47-70); Platelet Count 278 K/mm3 (150-450); RBC Distribution Width CV 13.9 % (11.6-14.6); RBC Distribution Width SD 46.7 fl (35.1-43.9); Red Blood Count 2.93 M/mm3 (4.2-5.4); White Blood Count 7.5 K/mm3 (4.4-11.0)
[2021-11-24 07:19] LABS: Anion Gap 8 (5-15); BUN 9 mg/dL (7-18); BUN/Creat Ratio 16.9 RATIO (10-20); Calcium,Total 8.4 mg/dL (8.5-10.1); Chloride 109 mmol/L (98-107); Creatinine, Serum 0.53 mg/dL (0.55-1.02); EST Glomerular Filtration Rate 126 mL/min (>60); Est Glom Filt Rate - Afr Amer 152 mL/min (>60); Estimated Creatinine Clearance 119.56 ml/min; Glucose 112 mg/dL (74-106); Potassium 3.1 mmol/L (3.5-5.1); Sodium Level 140 mmol/L (136-145)
[2021-11-24 07:31] VITALS: O2SAT 96
--- NOTE | 2021-11-24 08:21 | PN.HOSP_ITS ---
Subjective Subjective Complains of headache on posterior occiput. Present since admission--no change. States she never had a redness on her right lower extremity. Objective Data Objective Data Vital Signs: Vital Signs Temp Pulse Resp BP Pulse Ox O2 Del Method 36.8 C 76 16 108/62 96 Room Air 11/24/21 05:22 11/24/21 05:22 11/24/21 05:22 11/24/21 05:22 11/24/21 07:31 11/24/21 07:31 Oxygen Delivery Method Room Air Weight: 78.2 kg Body Mass Index (BMI) 25.6 Intake & Output: Intake and Output for Last 24 Hours 11/22/21 11/23/21 11/24/21 23:59 23:59 23:59 Intake Total 1000 / 1000 2321.09 / 2321.09 991.67 / 991.67 Balance 1000 / 1000 2321.09 / 2321.09 991.67 / 991.67 Lab / Micro Data Result Diagrams: 11/24/21 06:45 11/24/21 06:45 Labs: Laboratory Results - last 24 hr 11/23/21 11:11: POC Glucose 190 H 11/23/21 16:19: POC Glucose 136 H 11/23/21 22:18: POC Glucose 148 H 11/24/21 06:45: WBC 7.5, RBC 2.93 L, Hgb 8.7 L, Hct 26.6 L, MCV 90.8, MCH 29.7, MCHC 32.7, RDW Std Deviation 46.7 H, RDW Coeff of Amos 13.9, Plt Count 278, MPV 9.0, Immature Gran % (Auto) 0.400, Neut % (Auto) 68.8, Lymph % (Auto) 21.6, [place] % (Auto) 7.5, Eos % (Auto) 1.3, Baso % (Auto) 0.4, Absolute Neuts (auto) 5.1, Absolute Lymphs (auto) 1.61, Nucleated RBC % 0 11/24/21 06:45: Sodium 140, Potassium 3.1 L, Chloride 109 H, Carbon Dioxide 23.0, Anion Gap 8, BUN 9, Creatinine 0.53 L, Estim Creat Clear Calc 119.56, Est GFR (MDRD) Af Amer 152, Est GFR (MDRD) Non-Af 126, BUN/Creatinine Ratio 16.9, Glucose 112 H, Calcium 8.4 L 11/24/21 06:48: POC Glucose 94 Micro: Microbiology 11/22/21 18:00 Blood Culture (Wb) - Anticubital Left Blood Culture - Preliminary Staphylococcus aureus 11/22/21 18:00 Blood Culture (Wb) - Right Hand Bacteria Detection (PCR) - Final Staphylococcus aureus mecA Resistance Marker 11/22/21 18:00 Blood Culture (Wb) - Right Hand Blood Culture - Preliminary 11/22/21 19:18 Wound - Right Foot Gram Stain - Final 11/22/21 19:18 Wound - Right Foot Wound Culture - Preliminary GNR lactose panel edge sealer Gram positive organism 11/22/21 23:50 Mucosa - Nasopharyngeal Respiratory Panel (PCR) - Final 11/22/21 18:00 Nasal Secretion SARS-CoV-2 Antigen (Rapid) - Final Physical Exam Const alert and no apparent distress Resp normal respiratory effort, no retractions, no use of accessory muscles and clear to auscultation bilaterally Cardio regular rate, regular rhythm, S1 normal heart sound and S2 normal heart sound GI normal to inspection, nondistended, normoactive bowel sounds, soft to palpation and non-tender Extremity normal to inspection Skin Skin Narrative: Superficial ulceration on the dorsum of her right foot. No surrounding erythema Assessment & Plan Assessment/Plan (1) Fever, unknown origin: PLAN: Plan The patient is a 55 y/o F with with multiple comorbidities including history of right leg abscess, infectious tenosynovitis/foot infection/abscess with operative incision and drainage, debridement in May 2021 including fasciotomy. Patient has history of MRSA bacteremia, osteomyelitis of right foot as discharge diagnosis that time. He follows Dr. Jason Lewis as p odiatrist. This time admitted with fever T100 3. At home, chills, vomiting 1. Acute on chronic right foot soft tissue infection/cellulitis with history of MRSA osteomyelitis: Currently patient not having features of sepsis, no 2 sepsis related organ dysfunction. Blood culture shows preliminary gram-positive cocci. Prelim wound culture growing GNR lactose panel edge sealer and gram-positive organism. Clinically most likely it is MRSA with past history. Seen by podiatry: feels pt has avascular necrosis, not osteomyelitis. recommending cam walker to RLE and wound care ESR slightly elevated at 45, CRP 51.1 Plan: * daptomycin. Continue IV Zosyn. * repeat BCx * follow up cultures * Check MRI given elevated ESR, CRP and abnormal foot xray. 2. Migraine v tension-type headache plan: add acetaminophen. 3. Chronic conditions: * Chronic normocytic anemia: Admission hemoglobin 11.2, MCV 91.7, prior baseline hemoglobin noted to be 7-8 gram percent. Monitor CBC. * Diabetes mellitus type II: Hold oral home regimen, continue home insulin regimen, hemoglobin A1c 5.5. Accu-Chek insulin coverage Humalog sliding scale. Glucose is elevated to 220, to 190. Lantus insulin is started * Hypothyroidism: Continue home synthroid regimen. * allergic rhinitis: continue patient home levocetirizine and fluticasone. * Narcolepsy: continue patient home armodafinil regimen. * SHRADDHA: CPAP q HS. 4. DVT prophylaxis: SCDs, lovenox. Charges/Coding Visit Charges Inpatient E&M: 75060 Subs Hosp L2
[2021-11-24 09:48] VITALS: BP 120/67; PULSE 76; RESP 16; TEMP 36.9; O2SAT 98
[2021-11-24] MEDS: Enoxaparin 40 MG/0.4 ML Syringe SC (10:04)
[2021-11-24] MEDS: Loratadine 10 MG Tablet PO (10:04)
[2021-11-24] MEDS: Insulin Glargine-YFGN 100 UNIT/ML Pen SC (10:09)
[2021-11-24 10:21] LABS: Bedside Glucose 196 mg/dL (74-106)
[2021-11-24] MEDS: Insulin Lispro 100 UNIT/ML INSULN.PEN SC ×2 (11:32→17:03)
[2021-11-24 11:40] LABS: Bedside Glucose 161 mg/dL (74-106)
--- NOTE | 2021-11-24 13:23 | PCM.PROGNOTE ---
Subjective Subjective Patient is a 55-year-old female who was admitted for fever of unknown origin. She is seen bedside resting today texting, laughing, feeling better. She states that today is the first day she has started to feel a bit better. She continues to deny any redness or swelling of the right lower extremity. She denies any calf pain. She has no further complaints. Objective Data Objective Data Vital Signs: Vital Signs Temp Pulse Resp BP Pulse Ox O2 Del Method 98.4 F 76 16 120/67 98 Room Air 11/24/21 09:48 11/24/21 09:48 11/24/21 09:48 11/24/21 09:48 11/24/21 09:48 11/24/21 09:48 Oxygen Delivery Method Room Air Weight: 78.2 kg Body Mass Index (BMI) 25.6 Intake & Output: Intake and Output for Last 24 Hours 11/22/21 11/23/21 11/24/21 23:59 23:59 23:59 Intake Total 1000 / 1000 2321.09 / 2321.09 2100.67 / 2100.67 Balance 1000 / 1000 2321.09 / 2321.09 2100.67 / 2100.67 Lab / Micro Data Result Diagrams: 11/24/21 06:45 11/24/21 06:45 Labs: Laboratory Results - last 24 hr 11/23/21 16:19: POC Glucose 136 H 11/23/21 22:18: POC Glucose 148 H 11/24/21 06:45: WBC 7.5, RBC 2.93 L, Hgb 8.7 L, Hct 26.6 L, MCV 90.8, MCH 29.7, MCHC 32.7, RDW Std Deviation 46.7 H, RDW Coeff of Amos 13.9, Plt Count 278, MPV 9.0, Immature Gran % (Auto) 0.400, Neut % (Auto) 68.8, Lymph % (Auto) 21.6, [place] % (Auto) 7.5, Eos % (Auto) 1.3, Baso % (Auto) 0.4, Absolute Neuts (auto) 5.1, Absolute Lymphs (auto) 1.61, Nucleated RBC % 0 11/24/21 06:45: Sodium 140, Potassium 3.1 L, Chloride 109 H, Carbon Dioxide 23.0, Anion Gap 8, BUN 9, Creatinine 0.53 L, Estim Creat Clear Calc 119.56, Est GFR (MDRD) Af Amer 152, Est GFR (MDRD) Non-Af 126, BUN/Creatinine Ratio 16.9, Glucose 112 H, Calcium 8.4 L 11/24/21 06:48: POC Glucose 94 11/24/21 10:09: POC Glucose 196 H 11/24/21 11:20: POC Glucose 161 H Micro: Microbiology 11/22/21 19:18 Wound - Right Foot Gram Stain - Final 11/22/21 19:18 Wound - Right Foot Wound Culture - Preliminary Enterobacter cloacae complex Staphylococcus species 11/22/21 19:40 Urine, Clean Catch Urine Culture - Final Mixed Gram Positive Organisms 11/22/21 18:00 Blood Culture (Wb) - Anticubital Left Blood Culture - Preliminary Staphylococcus aureus 11/22/21 18:00 Blood Culture (Wb) - Right Hand Bacteria Detection (PCR) - Final Staphylococcus aureus mecA Resistance Marker 11/22/21 18:00 Blood Culture (Wb) - Right Hand Blood Culture - Preliminary 11/22/21 23:50 Mucosa - Nasopharyngeal Respiratory Panel (PCR) - Final 11/22/21 18:00 Nasal Secretion SARS-CoV-2 Antigen (Rapid) - Final Physical Exam Const alert, oriented x3 and no apparent distress General Appearance: comfortable and lethargic HEENT normocephalic Eyes General Eye: normal appearance of both eyes Neck General: normal visual inspection Lymph Lymphatic: no lymphadenopathy noted and no lymphedema noted Resp normal respiratory effort Cardio regular rate and regular rhythm GI soft to palpation, non-tender and non-distended Back/Spine no CVA tenderness Extremity normal capillary refill, no joint enlargement, no calf tenderness and no pedal edema Skin no rashes or lesions noted, skin turgor normal and no jaundice Wound Narrative: Ulceration site to the right anterior lower extremity.? Right lateral foot and medial foot cicatrix noted.? Surrounding skin is intact, supple, and atrophic.? Ulcerative site is a Gonzalez grade 3 secondary to a previous surgical debridement of an abscess of the foot and anterior compartment of the lower extremity.? Ulcerative site measures 1.7 cm x 1.6 cm x 0.1 cm to the dorsal foot. This ulcerative site demonstrates no palpable fluctuance, no expressible purulent drainage, site does not probe to bone, and displays no localized signs of infection. Neuro oriented x3 and moves all extremities Psych cooperative and affect normal Assessment & Plan Assessment/Plan (1) Non-pressure 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: (2) Type 2 diabetes mellitus with foot ulcer: QUALIFIERS: Diabetes mellitus terminal supervisor insulin use: with terminal supervisor use Qualified Code(s): E11.621 - Type 2 diabetes mellitus with foot ulcer; L97.509 - Non-pressure chronic ulcer of other part of unspecified foot with unspecified severity; Z79.4 - care home (current) use of insulin (3) Fever, unknown origin: (4) Diabetes mellitus with diabetic polyneuropathy: QUALIFIERS: Diabetes mellitus type: type 2 Diabetes mellitus [facility] insulin use: without [facility] use Qualified Code(s): E11.42 - Type 2 diabetes mellitus with diabetic polyneuropathy (5) 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: (6) Chronic ulcer of right foot due to diabetes mellitus: (7) Charcot's joint of right foot: (8) Hypothyroidism: QUALIFIERS: Hypothyroidism type: unspecified Qualified Code(s): E03.9 - Hypothyroidism, unspecified PLAN: Plan Patient seen and evaluated Her right lower extremity anterior ulceration from wound care visit 11/20/2021 continues to demonstrate good progression in healing with proximal portions closed and most distal portions closed with only small dorsal area on the dorsal foot remaining. Last surgical intervention was 05/28/2021 in which a wide debridement was performed of medial, lateral, and anterior lower extremity compartment of the foot. At that time patient had undergone 8 weeks of IV antibiotics. She started with vancomycin and was switched to daptomycin completing her course with her PICC line pulled on 07/09/2021. She was following in wound center and completed HBO dives in October with weekly visits for debridements and advanced wound care product grafting. I examined right lower extremity dorsal foot ulceration today 11/24/2021 which measures 1.7 cm x 1.6 cm x 0.1 cm. Ulceration has healthy red granular layer. Ulcerative site demonstrates no erythema, no palpable fluctuance, expressible purulence, malodor, no lymphangitis, or other localized signs of infection. Surrounding skin is atrophic. She demonstrates stable cicatrix noted medial and lateral side of the foot. Patient is currently on IV antibiotics Cubicin/Zosyn with white count decreasing from 11.1-9.7 on 11/23/2021 and continues to trend down to 7.5 currently. ESR 45, CRP 51. Blood culture demonstrates gram-positive cocci, wound culture demonstrates Enterobacter cloacae complex, and staph aureus. I believe this is what was currently swabbed from the skin does not reflect current infection source. Urine analysis is cloudy with leukocyte esterase of 500, 25-50 WBC seen, and +1 bacteria. [place] growth from urine culture is 11,000-25,000. I believe her FOU is due to a UTI. Her white count continues to decrease and she is showing improvement in her condition. Radiographs of right foot from 11/06/2021: Degenerative changes and sclerotic changes of the tarsal articulations. Degenerative arthrosis of metatarsal phalangeal joint of the great toe. Stable exam Radiographs of the right foot from 11/22/2021: A lytic process involving intermediate or second cuneiform extending to the base of the second met and adjacent medial cuneiform. Additional osteophytic degenerative changes of the site suggestive of a chronic osteomyelitis. I feel the report from 11/22/2021 demonstrates a avascular necrosis type of process at that intermediate cuneiform given the site does not probe to bone or have any sinus tracking and her wound is superficial with no other localized signs of infection. Podiatry will continue to monitor for any changes. I am recommending cam walker to be applied to right lower extremity for ambulation purposes. For long-term ambulation purposes we will look at obtaining an AFO so that she may ambulate with this in shoe gear. Hemoglobin A1c 5.5% she continues to do well in managing her diabetes. Wound site dressed today with Adaptic and dry sterile dressing. Medicine currently following for medical management, this is greatly appreciated. Infectious disease notified will see patient 11/24/2021. Podiatry will continue to follow and monitor for any changes to her right lower extremity. Please call for any questions or concerns Jr. Susan Dent.P.M. [facility] [phone] Note: [employer] speech recognition seismograph helper software was used to create portions of this document. Sound-alike and misspelled words, as well as other seismograph helper errors may be contained in the documentation.
[2021-11-24] MEDS: Acetaminophen 500 MG Tablet 1000 MG PO ×2 (13:50→21:14)
[2021-11-24 15:01] VITALS: BP 128/62; PULSE 80; RESP 16; TEMP 37; O2SAT 96
[2021-11-24 16:21] LABS: Bedside Glucose 153 mg/dL (74-106)
[2021-11-24] MEDS: Potassium Chloride Oral Tablet 20 MEQ 40 MEQ PO (17:12)
[2021-11-24 21:00] VITALS: BP 134/65; PULSE 82; RESP 18; TEMP 37.7; O2SAT 95
[2021-11-24] MEDS: Montelukast 10 MG Tablet PO (21:14)
[2021-11-24 22:20] LABS: Bedside Glucose 146 mg/dL (74-106)
[2021-11-25 03:22] VITALS: BP 132/71; PULSE 78; RESP 18; TEMP 37.6; O2SAT 96
[2021-11-25] MEDS: Acetaminophen 325 MG Tablet 650 MG PO ×2 (03:28→08:09)
[2021-11-25] MEDS: Levothyroxine 125 MCG Tablet PO (05:56)
[2021-11-25 06:21] LABS: Bedside Glucose 144 mg/dL (74-106)
[2021-11-25 06:34] LABS: Absolute Lymphocyte Count 1.67 X10^3/uL (0.83-4.51); Absolute Neutrophil Count 7.7 X10^3/uL (2.0-7.7); Basophil# 0.04 X10^3/uL; Basophil% 0.4 % (0-1); Eosinophil# 0.32 X10^3/uL; Eosinophils% 3.1 % (0-5); Hematocrit 27.8 % (37-47); Hemoglobin 9.2 g/dL (12.0-15.0); Lymphocyte # 1.67 X10^3/ul (0.83-4.51); Lymphocyte % 16.2 % (19-41); Mean Corp Hgb Conc 33.1 g/dL (32-36); Mean Corpuscular Hgb 29.1 pg (27.0-32.0); Mean Platelet Vol. 9.4 fl (6.2-12.0); Monocyte# 0.53 X10^3/uL; Monocyte% 5.2 % (0-10); NRBC Flagged by Analyzer 0 % (0-5); Neutrophil # 7.67 X10^3/uL (2.7-7.7); Neutrophil % 74.6 % (47-70); Platelet Count 336 K/mm3 (150-450); RBC Distribution Width CV 13.6 % (11.6-14.6); RBC Distribution Width SD 44.2 fl (35.1-43.9); Red Blood Count 3.16 M/mm3 (4.2-5.4); White Blood Count 10.3 K/mm3 (4.4-11.0)
--- NOTE | 2021-11-25 06:46 | MRI_ITS ---
STUDY: MRI RIGHT MIDFOOT REASON FOR EXAM: Female, 55 years old. osteomyelitis small ulcer proximal medial dorsal foot since april 2021 TECHNIQUE: Standardized fat and water weighted pulse sequences were obtained in all 3 orthogonal planes. COMPARISON: Right ankle and foot x-ray dated November 22, 2021. FINDINGS: Metallic artifact from the cortical plate-screw construct of the distal fibula results in limited visualization of the underlying structures in this region. Moderate to significant subcutaneous edema is present over the central to lateral aspect of the mid and forefoot. Mild to moderate patchy reactive edema is present throughout all of the ankle bony structures, tarsals, and metatarsal bases/TMT articulations. Mild to moderate cortical erosions intermixed with areas of sclerosis are also present throughout the mid foot consistent with Charcot arthropathy. Hypoplastic appearing middle cuneiform could be related to Charcot arthropathy and or prior trauma or surgical instrumentation. There is partial fragmentation of the middle cuneiform and a small surrounding effusion. Chronic periosteal reaction and cortical thickening is noted along the mid to distal shaft of the second metatarsal bone. Mild marrow edema is also present in the second and third proximal phalanges. Partial coalition of the talocalcaneal articulations noted. There is also moderate to severe narrowing of the midfoot articulations. No demonstrated cortical erosion or intramedullary lysis to suggest active osteomyelitis. Normal tibialis anterior tendon. Normal extensor hallucis longus tendon. Normal extensor digitorum longus tendons. Normal peroneus longus tendon and distal insertion. Normal peroneus brevis tendon and distal insertion. There is diffuse atrophy of the intrinsic muscles of the foot consistent with a peripheral neuropathy. No intramuscular or subcutaneous abscess is present. MRI/Lower Ext/No Jt/w/o IMPRESSION: 1. Moderate Charcot arthropathy 2. No visualized evidence of active osteomyelitis. 3. Moderate to significant subcutaneous edema over the dorsum of the forefoot Electronically Signed: Erick Boston MD at 12:13 EDT Reading Location ID and State: [facility] / [place] , Service support ,
[2021-11-25 07:03] LABS: Anion Gap 5 (5-15); BUN 9 mg/dL (7-18); BUN/Creat Ratio 13.7 RATIO (10-20); Calcium,Total 8.7 mg/dL (8.5-10.1); Chloride 110 mmol/L (98-107); Creatinine, Serum 0.66 mg/dL (0.55-1.02); EST Glomerular Filtration Rate 99 mL/min (>60); Est Glom Filt Rate - Afr Amer 120 mL/min (>60); Estimated Creatinine Clearance 96.01 ml/min; Glucose 145 mg/dL (74-106); Magnesium 1.8 mg/dL (1.6-2.6); Potassium 3.4 mmol/L (3.5-5.1); Sodium Level 141 mmol/L (136-145)
--- NOTE | 2021-11-25 07:19 | PCM.PN.HOSP ---
Subjective Subjective No new events. Objective Data Objective Data Vital Signs: Vital Signs Temp Pulse Resp BP Pulse Ox O2 Del Method 37.6 C H 78 18 132/71 H 96 Room Air 11/25/21 03:22 11/25/21 03:22 11/25/21 03:22 11/25/21 03:22 11/25/21 03:22 11/25/21 03:22 Oxygen Delivery Method Room Air Weight: 77 kg Body Mass Index (BMI) 25.6 Intake & Output: Intake and Output for Last 24 Hours 11/23/21 11/24/21 11/25/21 23:59 23:59 23:59 Intake Total 2321.09 / 2321.09 2500.67 / 2500.67 244 / 244 Output Total 210 / 210 Balance 2321.09 / 2321.09 2290.67 / 2290.67 244 / 244 Lab / Micro Data Result Diagrams: 11/25/21 06:20 11/25/21 06:20 Labs: Laboratory Results - last 24 hr 11/24/21 06:45: Sodium 140, Potassium 3.1 L, Chloride 109 H, Carbon Dioxide 23.0, Anion Gap 8, BUN 9, Creatinine 0.53 L, Estim Creat Clear Calc 119.56, Est GFR (MDRD) Af Amer 152, Est GFR (MDRD) Non-Af 126, BUN/Creatinine Ratio 16.9, Glucose 112 H, Calcium 8.4 L 11/24/21 10:09: POC Glucose 196 H 11/24/21 11:20: POC Glucose 161 H 11/24/21 16:11: POC Glucose 153 H 11/24/21 21:13: POC Glucose 146 H 11/25/21 05:55: POC Glucose 144 H 11/25/21 06:20: WBC 10.3, RBC 3.16 L, Hgb 9.2 L, Hct 27.8 L, MCV 88.0, MCH 29.1, MCHC 33.1, RDW Std Deviation 44.2 H, RDW Coeff of Amos 13.6, Plt Count 336, MPV 9.4, Immature Gran % (Auto) 0.500, Neut % (Auto) 74.6 H, Lymph % (Auto) 16.2 L, [place] % (Auto) 5.2, Eos % (Auto) 3.1, Baso % (Auto) 0.4, Absolute Neuts (auto) 7.7, Absolute Lymphs (auto) 1.67, Nucleated RBC % 0 11/25/21 06:20: Sodium 141, Potassium 3.4 L, Chloride 110 H, Carbon Dioxide 26.0, Anion Gap 5, BUN 9, Creatinine 0.66, Estim Creat Clear Calc 96.01, Est GFR (MDRD) Af Amer 120, Est GFR (MDRD) Non-Af 99, BUN/Creatinine Ratio 13.7, Glucose 145 H, Calcium 8.7, Magnesium 1.8 Micro: Microbiology 11/22/21 19:18 Wound - Right Foot Gram Stain - Final 11/22/21 19:18 Wound - Right Foot Wound Culture - Final Enterobacter cloacae complex Staphylococcus pseudintermediu 11/22/21 18:00 Blood Culture (Wb) - Anticubital Left Blood Culture - Preliminary Staphylococcus aureus 11/22/21 19:40 Urine, Clean Catch Urine Culture - Final Mixed Gram Positive Organisms 11/22/21 18:00 Blood Culture (Wb) - Right Hand Bacteria Detection (PCR) - Final Staphylococcus aureus mecA Resistance Marker 11/22/21 18:00 Blood Culture (Wb) - Right Hand Blood Culture - Preliminary 11/22/21 23:50 Mucosa - Nasopharyngeal Respiratory Panel (PCR) - Final 11/22/21 18:00 Nasal Secretion SARS-CoV-2 Antigen (Rapid) - Final Physical Exam Const alert and no apparent distress Cardio regular rate, regular rhythm, S1 normal heart sound and S2 normal heart sound GI normal to inspection, nondistended, normoactive bowel sounds, soft to palpation, non-tender and non-distended Extremity Extremity Narrative: Right foot and leg wrapped, did not remove. Psych affect normal Assessment & Plan Assessment/Plan (1) Cellulitis of right foot: PLAN: Plan The patient is a 55 y/o F with with multiple comorbidities including history of right leg abscess, infectious tenosynovitis/foot infection/abscess with operative incision and drainage, debridement in May 2021 including fasciotomy. Patient has history of MRSA bacteremia, osteomyelitis of right foot as discharge diagnosis that time. 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 This time admitted with fever T100 3. At home, chills, vomiting 1. Acute on chronic right foot soft tissue infection/cellulitis with history of MRSA osteomyelitis: Currently patient not having features of sepsis, no 2 sepsis related organ dysfunction. Blood culture shows preliminary gram-positive cocci. 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 Clinically most likely it is MRSA with past history. Seen by podiatry: feels pt has avascular necrosis, not osteomyelitis. recommending cam walker to RLE and wound care ESR slightly elevated at 45, CRP 51.1 Plan: daptomycin. Continue IV Zosyn. repeat BCx follow up cultures MRI performed and shows moderate to significant subcutaneous edema over the dorsum of the forefoot. No visualized evidence of acute osteomyelitis. 2. Bacteremia Secondary to cellulitis Follow-up cultures to ensure sterility Antibiotics per infectious disease. 3. Migraine v tension-type headache plan: add acetaminophen. 4. Chronic conditions: Chronic normocytic anemia: Admission hemoglobin 11.2, MCV 91.7, prior baseline hemoglobin noted to be 7-8 gram percent. Monitor CBC. Diabetes mellitus type II: Hold oral home regimen, continue home insulin regimen, hemoglobin A1c 5.5. Accu-Chek insulin coverage Humalog sliding scale. Glucose is elevated to 220, to 190. Lantus insulin is started Hypothyroidism: Continue home synthroid regimen. allergic rhinitis: continue patient home levocetirizine and fluticasone. Narcolepsy: continue patient home armodafinil regimen. SHRADDHA: CPAP q HS. 5. DVT prophylaxis: SCDs, lovenox. Charges/Coding Visit Charges Inpatient E&M: 67363 Subs Hosp L2
[2021-11-25 08:14] VITALS: BP 124/65; PULSE 82; RESP 16; TEMP 37; O2SAT 96
[2021-11-25] MEDS: Potassium Chloride Oral Tablet 20 MEQ 40 MEQ PO ×2 (08:18→17:47)
[2021-11-25 09:04] VITALS: O2SAT 96
--- NOTE | 2021-11-25 09:40 | CASEMGMT ---
RN CM Face to Face with patient for initial transition planning/care coordination assessment. RN CM introduced self and role at [facility]. Patient lying in bed, alert and oriented. Patient willing to participate in assessment and is able to answer all questions appropriately. Care providers, pharmacy, and demographics verified. Patient wishes to discharge home, denies need for home health at this time. Patient states she has no further needs or concerns at this time. CM to follow for discharge planning needs that may arise. PCP: [facility] Specialists: Joshua unemployment specialist Preferred Pharmacy: [facility] Insurance: Estelle Lowe. Patient states she does not have [place] any longer Prescription Benefit: yes Living Will/HPOA: yes, daughter Erika Falk LNOK: daughter Living Arrangements: Patient lives with daughter in a single story home with 5 steps to enter the home. Patient states she is independent at home. Transportation: self, daughter DME/HHC: Patient had BSC, raised toilet, grab bars, walker, and wheelchair at home. Patient has previously been to [facility] and [facility]. Patient states she has had HHC in the past but could not recall agency Disposition Plan: Patient to discharge home with family support and follow-up plans in place. Jodi LANDERS, RN, CM
--- NOTE | 2021-11-25 09:47 | WOUNDNOTE ---
wound photo: right lower leg/foot
--- NOTE | 2021-11-25 10:59 | CON.PCM.ID_ITS ---
Assessment & Plan Assessment/Plan (1) Fever, unknown origin: PLAN: Plan will treat with daily daptomycin; D/C Zosyn. Repeat blood cultures pending. Await MRI study of right leg. HPI Consult Data Date of Consult: 11/25/21 HPI Narrative Reason for Consultation: MRSA Bacteremia HPI Narrative: FREEMAN MOCTEZUMA, is a 55 F who presents fever and alter MS; found to have MRSA in the bloodstream. Has had a recent history of a complicated right leg infection with MRSA ( ). Previous records reviewed. [facility] Medical History (Updated 11/25/21 @ 07:[address] Luis Miguel Green, DO) Acute osteomyelitis of left foot Allergies Asthma Cellulitis of right lower limb Charcot's joint of right foot Chronic ulcer of right foot due to diabetes mellitus COVID-19 Diabetes Diabetes mellitus with diabetic polyneuropathy DKA, type 2 Former smoker History of MRSA infection Hypothyroidism Infectious tenosynovitis Malnutrition MRSA bacteremia Narcolepsy 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 Sleep disorder Type 2 diabetes mellitus with diabetic polyneuropathy Weakness Home Medications armodafinil 150 mg tablet 150 mg PO BID to stay awake 09/25/16 [History Last Taken Unknown] liothyronine 25 mcg tablet 25 mcg PO DAILY thyroid 09/25/16 [History Last Taken Unknown] montelukast 10 mg tablet (Singulair) 10 mg PO QHS allergy 09/25/16 [History Last Taken Unknown] baclofen 10 mg tablet 10 mg PO TID PRN muscle relax 01/01/21 [History Last Taken Unknown] fluticasone propionate 50 mcg/actuation nasal spray,suspension 1 spray intranasal BID PRN allergies 01/01/21 [History Last Taken Unknown] ibuprofen 200 mg tablet (Advil) 800 mg PO BID 05/21/21 [History Last Taken Unknown] levocetirizine 5 mg tablet 1 tab PO DAILY 11/22/21 [History Last Taken Unknown] levothyroxine 125 mcg tablet 125 mcg PO DAILY 11/22/21 [History Last Taken Unknown] sitagliptin 50 mg-metformin 500 mg tablet (Janumet) 1 tab PO DAILY 11/22/21 [History Last Taken Unknown] Allergy/AdvReac Type Severity Reaction Status Date / Time clindamycin Allergy Hives Verified 11/22/21 17:29 pregabalin [From Lyrica] Allergy Swelling Verified 11/22/21 17:29 bee venom protein (honey bee) AdvReac Anaphylaxis Verified 11/22/21 17:29 vancomycin AdvReac Other Verified 11/22/21 22:41 Family History (Updated 11/22/21 @ 19:[address] Nika Connolly MD) Father CVA (cerebral vascular accident) Clotting disorder Seizures Mother Osteoarthritis Other Diabetes Heart disease Hypertension Surgical History History of ankle surgery History of back surgery History of cholecystectomy S/P nasal septoplasty S/P right knee arthroscopy S/P tonsillectomy and adenoidectomy Social History (Updated 11/22/21 @ 19:[address] Nika Connolly MD) Smoking Status: Former smoker how long ago did patient quit smoking: Quit 1981. alcohol intake: current alcohol intake frequency: holidays/special occasions only substance use type: does not use Physical Exam Const alert and oriented x3 General Appearance: cooperative and well developed Eyes EOMs intact bilaterally Neck supple and no JVD Lymph Lymphatic: no lymphadenopathy noted Resp normal air movement and clear to auscultation bilaterally Cardio regular rate, regular rhythm, S1 normal heart sound, S2 normal heart sound and no murmurs GI normal to inspection, nondistended, normoactive bowel sounds Extremity no clubbing, cyanosis or edema Skin no rashes or lesions noted Neuro CN's II-XII intact bilaterally Psych mental status grossly normal Lab / Micro Data Result Diagrams: 11/25/21 06:20 11/25/21 06:20 Labs: Laboratory Results - last 24 hr 11/24/21 11:20: POC Glucose 161 H 11/24/21 16:11: POC Glucose 153 H 11/24/21 21:13: POC Glucose 146 H 11/25/21 05:55: POC Glucose 144 H 11/25/21 06:20: WBC 10.3, RBC 3.16 L, Hgb 9.2 L, Hct 27.8 L, MCV 88.0, MCH 29.1, MCHC 33.1, RDW Std Deviation 44.2 H, RDW Coeff of Amos 13.6, Plt Count 336, MPV 9.4, Immature Gran % (Auto) 0.500, Neut % (Auto) 74.6 H, Lymph % (Auto) 16.2 L, [place] % (Auto) 5.2, Eos % (Auto) 3.1, Baso % (Auto) 0.4, Absolute Neuts (auto) 7.7, Absolute Lymphs (auto) 1.67, Nucleated RBC % 0 11/25/21 06:20: Sodium 141, Potassium 3.4 L, Chloride 110 H, Carbon Dioxide 26.0, Anion Gap 5, BUN 9, Creatinine 0.66, Estim Creat Clear Calc 96.01, Est GFR (MDRD) Af Amer 120, Est GFR (MDRD) Non-Af 99, BUN/Creatinine Ratio 13.7, Glucose 145 H, Calcium 8.7, Magnesium 1.8 Micro: Microbiology 11/22/21 18:00 Blood Culture (Wb) - Anticubital Left Bacteria Detection (PCR) - Final Staphylococcus aureus 11/22/21 18:00 Blood Culture (Wb) - Anticubital Left Blood Culture - Preliminary Staphylococcus aureus 11/22/21 19:18 Wound - Right Foot Gram Stain - Final 11/22/21 19:18 Wound - Right Foot Wound Culture - Final Enterobacter cloacae complex Staphylococcus pseudintermediu 11/22/21 19:40 Urine, Clean Catch Urine Culture - Final Mixed Gram Positive Organisms 11/22/21 18:00 Blood Culture (Wb) - Right Hand Bacteria Detection (PCR) - Final Staphylococcus aureus mecA Resistance Marker 11/22/21 18:00 Blood Culture (Wb) - Right Hand Blood Culture - Preliminary
[2021-11-25 11:16] LABS: Bedside Glucose 141 mg/dL (74-106)
[2021-11-25] MEDS: 0.9% Saline Lock 10 ML Syringe IV (11:19)
[2021-11-25] MEDS: Loratadine 10 MG Tablet PO (11:20)
[2021-11-25] MEDS: Enoxaparin 40 MG/0.4 ML Syringe SC (11:20)
[2021-11-25] MEDS: Insulin Glargine-YFGN 100 UNIT/ML Pen SC (11:21)
[2021-11-25 14:42] VITALS: BP 126/66; PULSE 76; RESP 18; TEMP 37.3; O2SAT 100
[2021-11-25] MEDS: Acetaminophen 500 MG Tablet 1000 MG PO ×2 (14:48→23:30)
[2021-11-25 16:26] LABS: Bedside Glucose 169 mg/dL (74-106)
[2021-11-25] MEDS: Insulin Lispro 100 UNIT/ML INSULN.PEN SC (17:47)
[2021-11-25 21:40] VITALS: BP 140/65; PULSE 83; RESP 18; TEMP 37.4; O2SAT 97
[2021-11-25] MEDS: Montelukast 10 MG Tablet PO (21:47)
[2021-11-25 22:00] LABS: Bedside Glucose 149 mg/dL (74-106)
[2021-11-26 04:34] VITALS: BP 127/79; PULSE 60; RESP 18; TEMP 36.9; O2SAT 99
[2021-11-26] MEDS: Levothyroxine 125 MCG Tablet PO (04:44)
[2021-11-26 06:30] LABS: Bedside Glucose 133 mg/dL (74-106)
--- NOTE | 2021-11-26 08:01 | PN.HOSP_ITS ---
Subjective Subjective Feels good. No complaints. Anxious to go home. Objective Data Objective Data Vital Signs: Vital Signs Temp Pulse Resp BP Pulse Ox O2 Del Method 36.9 C 60 18 127/79 H 99 Room Air 11/26/21 04:34 11/26/21 04:34 11/26/21 04:34 11/26/21 04:34 11/26/21 04:34 11/26/21 04:34 Oxygen Delivery Method Room Air Weight: 77.4 kg Body Mass Index (BMI) 25.6 Intake & Output: Intake and Output for Last 24 Hours 11/24/21 11/25/21 11/26/21 23:59 23:59 23:59 Intake Total 2500.67 / 2500.67 753 / 753 Output Total 210 / 210 Balance 2290.67 / 2290.67 753 / 753 Lab / Micro Data Result Diagrams: 11/25/21 06:20 11/25/21 06:20 Labs: Laboratory Results - last 24 hr 11/25/21 10:59: POC Glucose 141 H 11/25/21 16:03: POC Glucose 169 H 11/25/21 21:46: POC Glucose 149 H 11/26/21 04:59: POC Glucose 133 H Micro: Microbiology 11/22/21 18:00 Blood Culture (Wb) - Right Hand Bacteria Detection (PCR) - Fi nal Staphylococcus aureus mecA Resistance Marker 11/22/21 18:00 Blood Culture (Wb) - Right Hand Blood Culture - Final Meth. resistant Staph. aureus 11/22/21 18:00 Blood Culture (Wb) - Anticubital Left Bacteria Detection (PCR) - Final Staphylococcus aureus 11/22/21 18:00 Blood Culture (Wb) - Anticubital Left Blood Culture - Preliminary Staphylococcus aureus 11/22/21 19:18 Wound - Right Foot Gram Stain - Final 11/22/21 19:18 Wound - Right Foot Wound Culture - Final Enterobacter cloacae complex Staphylococcus pseudintermediu 11/22/21 19:40 Urine, Clean Catch Urine Culture - Final Mixed Gram Positive Organisms 11/22/21 23:50 Mucosa - Nasopharyngeal Respiratory Panel (PCR) - Final 11/22/21 18:00 Nasal Secretion SARS-CoV-2 Antigen (Rapid) - Final Radiography Diagnostic Testing: Radiology Impression Lower Extremity MRI 11/25/21 06:46 IMPRESSION: 1. Moderate Charcot arthropathy 2. No visualized evidence of active osteomyelitis. 3. Moderate to significant subcutaneous edema over the dorsum of the forefoot Electronically Signed: Erick Boston MD at 12:13 EDT Reading Location ID and State: [facility] / [place] , Service support , Physical Exam Const alert and no apparent distress Psych affect normal Assessment & Plan Assessment/Plan (1) Cellulitis of right foot: PLAN: Plan The patient is a 55 y/o F with with multiple comorbidities including history of right leg abscess, infectious tenosynovitis/foot infection/abscess with operative incision and drainage, debridement in May 2021 including fasciotomy. Patient has history of MRSA bacteremia, osteomyelitis of right foot as discharge diagnosis that time. He follows Dr. Jason Lewis as degreaser. This time admitted with fever T100 3. At home, chills, vomiting 1. Acute on chronic right foot soft tissue infection/cellulitis with history of MRSA osteomyelitis: Sepsis ruled out on admission. 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 Clinically most likely it is MRSA with past history. Seen by podiatry: feels pt has avascular necrosis, not osteomyelitis. recommending cam walker to RLE and wound care ESR slightly elevated at 45, CRP 51.1 MRI performed and shows moderate to significant subcutaneous edema over the dorsum of the forefoot. No visualized evidence of acute osteomyelitis. Plan: * daptomycin. through 01/05. * follow up with ID and podiatry. 2. Bacteremia, MRSA Secondary to cellulitis Follow-up cultures so far negative. Antibiotics per infectious disease. 3. Migraine resolved v tension-type headache plan: add acetaminophen. 4. Chronic conditions: * Chronic normocytic anemia: Admission hemoglobin 11.2, MCV 91.7, prior baseline hemoglobin noted to be 7-8 gram percent. Monitor CBC. * Diabetes mellitus type II: Hold oral home regimen, continue home insulin regimen, hemoglobin A1c 5.5. Accu-Chek insulin coverage Humalog sliding scale. Glucose is elevated to 220, to 190. Lantus insulin is started * Hypothyroidism: Continue home synthroid regimen. * allergic rhinitis: continue patient home levocetirizine and fluticasone. * Narcolepsy: continue patient home armodafinil regimen. * SHRADDHA: CPAP q HS. 5. DVT prophylaxis: SCDs, lovenox. Charges/Coding Visit Charges Inpatient E&M: 84025 Subs Hosp L1
[2021-11-26] MEDS: Potassium Chloride Oral Tablet 20 MEQ 40 MEQ PO (08:24)
[2021-11-26] MEDS: Loratadine 10 MG Tablet PO (08:25)
--- NOTE | 2021-11-26 10:25 | PCM.PN.ID ---
Physical Exam Narrative Alert responsive does not appear toxic lungs are clear heart exam S1-S2 abdomen soft nontender. ID ID: Route of nutrition/ use of supplements: [] Nutritional Intake: [] IV Site: [] Pink Catheter: [] Patient overall clinically stable. No cardiopulmonary distress. No fevers. Tolerating daily daptomycin. MRI report of the right leg results reviewed. Assessment & Plan Assessment/Plan (1) Fever, unknown origin: PLAN: MRSA bacteremia, recurrent. We will treat aggressively with daily daptomycin 500 mg IV daily for 6 weeks through January 05. I did write a prescription with weekly blood work. I will see the patient in follow-up in my office to discuss oral suppressive antibiotics after completion of her parenteral antibiotic regimen.
[2021-11-26] MEDS: Insulin Glargine-YFGN 100 UNIT/ML Pen SC (10:30)
[2021-11-26] MEDS: Enoxaparin 40 MG/0.4 ML Syringe SC (10:32)
[2021-11-26 10:35] VITALS: BP 119/60; PULSE 89; RESP 18; TEMP 36.9; O2SAT 96
--- NOTE | 2021-11-26 10:54 | CASEMGMT ---
RN CM updated that patient will need 6 week of IV ATBs at discharge. Patient was provided a list of HHC and Infusion providers including quality and resource use data and consistent with the patient?s preferred geographic region, medical needs, and insurance network. The patient?s preferred provider is [facility] and [facility]. CM will send referrals and awaiting acceptance. CM will continue to follow this patient and plan for a safe discharge.
[2021-11-26 11:28] VITALS: BP 140/88; PULSE 84; RESP 18; TEMP 36.6; O2SAT 99
[2021-11-26 12:16] LABS: Bedside Glucose 144 mg/dL (74-106)
--- NOTE | 2021-11-26 12:32 | PCM.PROGNOTE ---
Subjective Subjective This is a 56-year-old female seen today for sepsis, bacteremia with staph aureus. She states nursing dressed her right lower extremity today. She states that she is starting to feel better than previous days. She informs me that she will be undergoing PICC line placement either today or tomorrow with discharge home soon to follow. She has no other complaints. Objective Data Objective Data Vital Signs: Vital Signs Temp Pulse Resp BP Pulse Ox O2 Del Method 97.8 F 84 18 140/88 H 99 Room Air 11/26/21 11:28 11/26/21 11:28 11/26/21 11:28 11/26/21 11:28 11/26/21 11:28 11/26/21 11:28 Oxygen Delivery Method Room Air Weight: 77.4 kg Body Mass Index (BMI) 25.6 Intake & Output: Intake and Output for Last 24 Hours 11/24/21 11/25/21 11/26/21 23:59 23:59 23:59 Intake Total 2500.67 / 2500.67 753 / 753 Output Total 210 / 210 Balance 2290.67 / 2290.67 753 / 753 Lab / Micro Data Result Diagrams: 11/25/21 06:20 11/25/21 06:20 Labs: Laboratory Results - last 24 hr 11/25/21 16:03: POC Glucose 169 H 11/25/21 21:46: POC Glucose 149 H 11/26/21 04:59: POC Glucose 133 H 11/26/21 11:50: POC Glucose 144 H Micro: Microbiology 11/24/21 09:10 Blood Culture (Wb) - Right Hand Blood Culture - Preliminary No growth in 48 hours. 11/24/21 09:05 Blood Culture (Wb) - Anticubital Right Blood Culture - Preliminary No growth in 48 hours. 11/22/21 18:00 Blood Culture (Wb) - Right Hand Bacteria Detection (PCR) - Final Staphylococcus aureus mecA Resistance Marker 11/22/21 18:00 Blood Culture (Wb) - Right Hand Blood Culture - Final Meth. resistant Staph. aureus 11/22/21 18:00 Blood Culture (Wb) - Anticubital Left Bacteria Detection (PCR) - Final Staphylococcus aureus 11/22/21 18:00 Blood Culture (Wb) - Anticubital Left Blood Culture - Preliminary Staphylococcus aureus 11/22/21 19:18 Wound - Right Foot Gram Stain - Final 11/22/21 19:18 Wound - Right Foot Wound Culture - Final Enterobacter cloacae complex Staphylococcus pseudintermediu 11/22/21 19:40 Urine, Clean Catch Urine Culture - Final Mixed Gram Positive Organisms 11/22/21 23:50 Mucosa - Nasopharyngeal Respiratory Panel (PCR) - Final 11/22/21 18:00 Nasal Secretion SARS-CoV-2 Antigen (Rapid) - Final Radiography Diagnostic Testing: Radiology Impression Lower Extremity MRI 11/25/21 06:46 IMPRESSION: 1. Moderate Charcot arthropathy 2. No visualized evidence of active osteomyelitis. 3. Moderate to significant subcutaneous edema over the dorsum of the forefoot Electronically Signed: Erick Boston MD at 12:13 EDT Reading Location ID and State: [facility] / [place] , Service support , Physical Exam Const alert, oriented x3 and no apparent distress General Appearance: comfortable and lethargic HEENT normocephalic Eyes General Eye: normal appearance of both eyes Neck General: normal visual inspection Lymph Lymphatic: no lymphadenopathy noted and no lymphedema noted Resp normal respiratory effort Cardio regular rate and regular rhythm GI soft to palpation, non-tender and non-distended Back/Spine no CVA tenderness Extremity normal capillary refill, no joint enlargement, no calf tenderness and no pedal edema Skin no rashes or lesions noted, skin turgor normal and no jaundice Wound Narrative: Ulceration site to the right anterior lower extremity.? Right lateral foot and medial foot cicatrix noted.? Surrounding skin is intact, supple, and atrophic.? Ulcerative site is a Gonzalez grade 3 secondary to a previous surgical debridement of an abscess of the foot and anterior compartment of the lower extremity.? Ulcerative site measures 1.7 cm x 1.6 cm x 0.1 cm to the dorsal foot. This ulcerative site demonstrates no palpable fluctuance, no expressible purulent drainage, site does not probe to bone, and displays no localized signs of infection. 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 (3) Fever, unknown origin: (4) Diabetes mellitus with diabetic polyneuropathy: QUALIFIERS: Diabetes mellitus type: type 2 Diabetes mellitus [facility] insulin use: without [facility] use Qualified Code(s): E11.42 - Type 2 diabetes mellitus with diabetic polyneuropathy (5) 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: (6) Chronic ulcer of right foot due to diabetes mellitus: (7) Charcot's joint of right foot: (8) Hypothyroidism: QUALIFIERS: Hypothyroidism type: unspecified Qualified Code(s): E03.9 - Hypothyroidism, unspecified PLAN: Plan Patient seen and evaluated I examined right lower extremity dorsal foot ulceration today 11/26/2021 which measures 1.7 cm x 1.6 cm x 0.1 cm. Ulceration has healthy red granular layer. Ulcerative site demonstrates no erythema, no palpable fluctuance, expressible purulence, malodor, no lymphangitis, or other localized signs of infection. Surrounding skin is atrophic. She demonstrates stable cicatrix noted medial and lateral side of the foot. Patient is currently on IV antibiotics Cubicin with white currently at 10.3 and normalizing. ESR 45, CRP 51. Blood culture demonstrates staph aureus, wound culture demonstrates Enterobacter cloacae complex, and staph aureus. I believe this is what was currently swabbed from the skin does not reflect current infection source. Radiographs of right foot from 11/06/2021: Degenerative changes and sclerotic changes of the tarsal articulations. Degenerative arthrosis of metatarsal phalangeal joint of the great toe. Stable exam Radiographs of the right foot from 11/22/2021: A lytic process involving intermediate or second cuneiform extending to the base of the second met and adjacent medial cuneiform. Additional osteophytic degenerative changes of the site suggestive of a chronic osteomyelitis. I feel the report from 11/22/2021 demonstrates a Charcot joint/avascular necrosis type of process at that intermediate cuneiform given the site does not probe to bone or have any sinus tracking and her wound is superficial with no other localized signs of infection. MRI was performed on 11/25/2021 demonstrating no osteomyelitis. MRI demonstrated findings consistent with Charcot foot arthropathy. Podiatry will continue to monitor for any changes. I am recommending cam walker to be applied to right lower extremity for ambulation purposes. For long-term ambulation purposes we will look at obtaining an AFO so that she may ambulate with this in shoe gear. Hemoglobin A1c 5.5% she continues to do well in managing her diabetes. Wound site dressed today with Adaptic and dry sterile dressing. Medicine currently following for medical management, this is greatly appreciated. Infectious disease recommending PICC placement for her bacteremia. She will undergo 6 weeks of IV antibiotics followed by oral antibiotic course per ID. Podiatry will continue to follow and monitor for any changes to her right lower extremity. She will follow-up with me in the wound care center for continued wound care pending discharge. Please call for any questions or concerns Jr. Irineo DentP.M. [facility] [phone] Note: Mogreet speech recognition material chaser software was used to create portions of this document. Sound-alike and misspelled words, as well as other material chaser errors may be contained in the documentation.
--- NOTE | 2021-11-26 14:59 | CASEMGMT ---
BERTA TRUJILLO received call back from Giuseppe at [facility] and they are able to accept the patient. BERTA TRUJILLO called and updated [facility] regarding HHC setup. IV ATB cost is covered at 100%. soil conservationist is to be here between 3-4pm to place PICC line, will fax to [facility] once available. BERTA TRUJILLO updated nursing and hospitalist. BERTA TRUJILLO updated patient regarding C acceptance and cost of antibiotics. CM to continue to follow this patient and plan for a safe discharge.
--- NOTE | 2021-11-26 15:13 | DCINST_ITS ---
Discharge Instructions Diet Discharge Diet: 1999 Calorie Control Diet Activity Discharge Activity: Return to Normal Activity Dressing / Incision Call your doctor if your incision/area has: Continuous Slow Oozing, Sudden Increased Bleeding, Increased Pain/ Swelling and Foul Smelling Discharge Call your doctor if you observe: Fever of 101 or Higher Follow Up Care Test Results: Test results from this visit will be discussed in further detail at your follow- up appointment, if applicable. Discharge Plan Admission Admit Date/Time: 11/23/21 11:07 Primary Reason for Your Visit: Cellulitis. Bacteramia Attending Provider: Luis Miguel Green Primary Care Provider: Cuong Barros Consulting Providers: Jason Lewis ; Nika Connolly ; Torsten Paez ; Moreno Mathew Discharge Orders/Prescriptions Prescriptions: New daptomycin 500 mg Recon Soln 450 mg IV Q24 Qty: 0 0RF Continued liothyronine 25 MCG tablet 25 mcg PO DAILY Label Comments: TAKE 1 TABLET BY MOUTH EVERY DAY IN THE MORNING montelukast [Singulair] 10 MG tablet 10 mg PO QHS armodafinil 150 MG tablet 150 mg PO BID Label Comments: TAKE 1 TABLET TWICE DAILY baclofen 10 mg Tablet 10 mg PO TID PRN (Reason: muscle relax) fluticasone propionate 50 mcg/actuation [place],Suspension 1 spray INTRANASAL BID PRN (Reason: allergies) ibuprofen [Advil] 200 mg Tablet 800 mg PO BID Janumet 50-500 mg tablet 1 tab PO DAILY levothyroxine 125 mcg Tablet 125 mcg PO DAILY levocetirizine 5 mg tablet 1 tab PO DAILY Referrals / Follow Up: Torsten Paez MD [STAFF PHYSICIAN] - Within 2 Weeks Jason Lewis DPM [STAFF PHYSICIAN] - Within 2 Weeks Cuong Barros MD [Primary Care Provider] - Within 2 Weeks Disposition Disposition (needs filled in before D/C Order can be placed): Home Health Service
[2021-11-26 15:16] VITALS: BP 124/80; PULSE 86; RESP 18; TEMP 36.6; O2SAT 95
--- NOTE | 2021-11-26 15:17 | PCM.DC.SUM ---
Providers Date of Admission: 11/23/21 Primary Care Physician: Dr. Cuong Barros MD Consultations 11/22/21 22:30 Consult: Onc/Wound/alumni relations officer Routine Comment: Reason for Consult:: Diabetic foot wound Consult: Podiatry Routine Consulting Provider: Jason Lewis Reason for Consult: FUO, possible DM foot infection EMERGENT Consult: No Notified: Yes Date Notified: 11/22/21 Time Notified: 21:39 Method of Notification: ED Physician Initiated 11/23/21 11:45 Consult: Infectious Disease Routine Consulting Provider: Torsten Paez Reason for Consult: MRSA bactermia from Right foot ulcer EMERGENT Consult: No Notified: Yes Date Notified: 11/23/21 Time Notified: 11:45 Method of Notification: Answering Service Reason For Visit: FUO Diagnosis Discharge Diagnosis (1) Cellulitis of right foot: Status: Acute Code(s): L03.115 - Cellulitis of right lower limb (2) Bacteremia: Status: Acute Code(s): R78.81 - Bacteremia Plan The patient is a 55 y/o F with with multiple comorbidities including history of right leg abscess, infectious tenosynovitis/foot infection/abscess with operative incision and drainage, debridement in May 2021 including fasciotomy. Patient has history of MRSA bacteremia, osteomyelitis of right foot as discharge diagnosis that time. 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 This time admitted with fever T100 3. At home, chills, vomiting 1. Acute on chronic right foot soft tissue infection/cellulitis with history of MRSA osteomyelitis: Sepsis ruled out on admission. 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 Clinically most likely it is MRSA with past history. Seen by podiatry: feels pt has avascular necrosis, not osteomyelitis. recommending cam walker to RLE and wound care ESR slightly elevated at 45, CRP 51.1 MRI performed and shows moderate to significant subcutaneous edema over the dorsum of the forefoot. No visualized evidence of acute osteomyelitis. Plan: daptomycin. through 01/05. follow up with ID and podiatry. 2. Bacteremia, MRSA Secondary to cellulitis Follow-up cultures so far negative. Antibiotics per infectious disease. 3. Migraine resolved v tension-type headache plan: add acetaminophen. 4. Chronic conditions: Chronic normocytic anemia: Admission hemoglobin 11.2, MCV 91.7, prior baseline hemoglobin noted to be 7-8 gram percent. Monitor CBC. Diabetes mellitus type II: Hold oral home regimen, continue home insulin regimen, hemoglobin A1c 5.5. Accu-Chek insulin coverage Humalog sliding scale. Glucose is elevated to 220, to 190. Lantus insulin is started Hypothyroidism: Continue home synthroid regimen. allergic rhinitis: continue patient home levocetirizine and fluticasone. Narcolepsy: continue patient home armodafinil regimen. SHRADDHA: CPAP q HS. 5. DVT prophylaxis: SCDs, lovenox. Medications at Discharge Home Medications armodafinil 150 mg tablet 150 mg PO BID to stay awake 09/25/16 liothyronine 25 mcg tablet 25 mcg PO DAILY thyroid 09/25/16 montelukast 10 mg tablet (Singulair) 10 mg PO QHS allergy 09/25/16 baclofen 10 mg tablet 10 mg PO TID PRN muscle relax 01/01/21 fluticasone propionate 50 mcg/actuation nasal spray,suspension 1 spray intranasal BID PRN allergies 01/01/21 ibuprofen 200 mg tablet (Advil) 800 mg PO BID 05/21/21 levocetirizine 5 mg tablet 1 tab PO DAILY 11/22/21 levothyroxine 125 mcg tablet 125 mcg PO DAILY 11/22/21 sitagliptin 50 mg-metformin 500 mg tablet (Janumet) 1 tab PO DAILY 11/22/21 daptomycin 500 mg intravenous solution 450 mg IV Q24 #0 ea 11/26/21 Hospital Course Operations None Procedures PICC line placement Summary of Care Provided Minutes Spent on Discharge: 32 Weight / BMI Weight Weight: 77.4 kg Body Mass Index (BMI) 25.6 ABG / Lab / Microbiology Data Result Diagrams: 11/25/21 06:20 11/25/21 06:20 Laboratory: Laboratory Results - last 24 hr 11/25/21 16:03: POC Glucose 169 H 11/25/21 21:46: POC Glucose 149 H 11/26/21 04:59: POC Glucose 133 H 11/26/21 11:50: POC Glucose 144 H Microbiology: Microbiology 11/24/21 09:10 Blood Culture (Wb) - Right Hand Blood Culture - Preliminary No growth in 48 hours. 11/24/21 09:05 Blood Culture (Wb) - Anticubital Right Blood Culture - Preliminary No growth in 48 hours. 11/22/21 18:00 Blood Culture (Wb) - Right Hand Bacteria Detection (PCR) - Final Staphylococcus aureus mecA Resistance Marker 11/22/21 18:00 Blood Culture (Wb) - Right Hand Blood Culture - Final Meth. resistant Staph. aureus 11/22/21 18:00 Blood Culture (Wb) - Anticubital Left Bacteria Detection (PCR) - Final Staphylococcus aureus 11/22/21 18:00 Blood Culture (Wb) - Anticubital Left Blood Culture - Preliminary Staphylococcus aureus 11/22/21 19:18 Wound - Right Foot Gram Stain - Final 11/22/21 19:18 Wound - Right Foot Wound Culture - Final Enterobacter cloacae complex Staphylococcus pseudintermediu 11/22/21 19:40 Urine, Clean Catch Urine Culture - Final Mixed Gram Positive Organisms 11/22/21 23:50 Mucosa - Nasopharyngeal Respiratory Panel (PCR) - Final 11/22/21 18:00 Nasal Secretion SARS-CoV-2 Antigen (Rapid) - Final D/C Instructions Discharge Diet: 2000 Calorie Control Diet Call your doctor if your incision/area has: Continuous Slow Oozing, Sudden Increased Bleeding, Increased Pain/ Swelling and Foul Smelling Discharge Call your doctor if you observe: Fever of 101 or Higher Meaningful Use Info Meaningful Use Diagnoses (Choose all that apply): None applicable Discharge Plan Admission Admit Date/Time: 11/23/21 11:07 Primary Reason for Your Visit: Cellulitis. Bacteramia Attending Provider: Luis Miguel Green Primary Care Provider: Cuong Barros Consulting Providers: Jason Lewis ; Nika Connolly ; Torsten Paez ; Moreno Mathew Discharge Orders/Prescriptions Prescriptions: New daptomycin 500 mg Recon Soln 450 mg IV Q24 Qty: 0 0RF Continued liothyronine 25 MCG tablet 25 mcg PO DAILY Label Comments: TAKE 1 TABLET BY MOUTH EVERY DAY IN THE MORNING montelukast [Singulair] 10 MG tablet 10 mg PO QHS armodafinil 150 MG tablet 150 mg PO BID Label Comments: TAKE 1 TABLET TWICE DAILY baclofen 10 mg Tablet 10 mg PO TID PRN (Reason: muscle relax) fluticasone propionate 50 mcg/actuation [place],Suspension 1 spray INTRANASAL BID PRN (Reason: allergies) ibuprofen [Advil] 200 mg Tablet 800 mg PO BID Janumet 50-500 mg tablet 1 tab PO DAILY levothyroxine 125 mcg Tablet 125 mcg PO DAILY levocetirizine 5 mg tablet 1 tab PO DAILY Referrals / Follow Up: Torsten Paez MD [STAFF PHYSICIAN] - Within 2 Weeks Jason Lewis DPM [STAFF PHYSICIAN] - Within 2 Weeks Cuong Barros MD [Primary Care Provider] - Within 2 Weeks Disposition Disposition (needs filled in before D/C Order can be placed): Home Health Service Charges/Coding Visit Charges Inpatient E&M: 90437 [facility]
--- NOTE | 2021-11-26 16:03 | CASEMGMT ---
Discharge paperwork faxed to [facility]. RN CM called and updated Giuseppe with planned discharge for today. CM will continue to follow this patient and plan for a safe discharge.
--- NOTE | 2021-11-26 16:27 | CASEMGMT ---
BERTA TRUJILLO NOTE: PICC insertion documentation faxed to [facility] at this time. Keily LANDERS RN CM
== END 2021-11-26 16:48 | disposition home health service (06) | DRG 638 ==
LOC: ED 17:52 → MS3 22:03
PROVIDERS: Internal Medicine; Admitting Provider Family Medicine; Emergency Provider Student in an Organized Health Care Education/Training Program; PCP Family Medicine
DX: E11.628 Type 2 diabetes mellitus with other skin complications (principal); M87.9 Osteonecrosis, unspecified; R78.81 Bacteremia; L03.115 Cellulitis of right lower limb; L97.212 Non-pressure 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; E11.610 Type 2 diabetes mellitus with diabetic neuropathic arthropathy; E11.42 Type 2 diabetes mellitus with diabetic polyneuropathy; E11.621 Type 2 diabetes mellitus with foot ulcer; E03.9 Hypothyroidism, unspecified; B95.62 Methicillin resistant Staphylococcus aureus infection as the cause of diseases classified elsewhere; L97.512 Non-pressure chronic 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; Z79.4 Long term (current) use of insulin; E11.65 Type 2 diabetes mellitus with hyperglycemia; J30.9 Allergic rhinitis, unspecified; G43.909 Migraine, unspecified, not intractable, without status migrainosus; G47.33 Obstructive sleep apnea (adult) (pediatric); G47.419 Narcolepsy without cataplexy; Z91.14 Patient's other noncompliance with medication regimen; Z20.822 Contact with and (suspected) exposure to COVID-19; Z79.1 Long term (current) use of non-steroidal anti-inflammatories (NSAID); Z86.14 Personal history of Methicillin resistant Staphylococcus aureus infection; Z87.891 Personal history of nicotine dependence; Z79.890 Hormone replacement therapy
CPT/HCPCS: 36415; 36569; 71045; 73610; 73630; 73718; 80048; 80053; 81001; 82009; 82962; 83036; 83605; 83735; 84145; 85025; 85610; 85652; 86140; 87040; 87070; 87075; 87077; 87086; 87088; 87149; 87186; 87205; 87633; 87635; 87640; 87811; 99251; 99285; J0878; J7030; J7050; A4216; G0463; J2405; J3490; U0003; U0005

== ENCOUNTER → 2021-12-01 | Outpatient (CLI) | payer BC, MEDICAID, SELFPAY ==
[2021-12-01 13:24] LABS: Hematocrit 36.6 % (37-47); Hemoglobin 11.8 g/dL (12.0-15.0); Mean Corp Hgb Conc 32.2 g/dL (32-36); Mean Corpuscular Hgb 29.6 pg (27.0-32.0); Mean Platelet Vol. 9.7 fl (6.2-12.0); Platelet Count 642 K/mm3 (150-450); RBC Distribution Width CV 14.5 % (11.6-14.6); RBC Distribution Width SD 49.1 fl (35.1-43.9); Red Blood Count 3.98 M/mm3 (4.2-5.4); White Blood Count 11.1 K/mm3 (4.4-11.0)
[2021-12-01 13:50] LABS: ALB/GLOB Ratio 0.9 RATIO (0.9-2.4); AST(SGOT) 13 U/L (15-37); Alanine Aminotransfer ALT/SGPT 22 U/L (13-56); Albumin, Serum 3.7 g/dL (3.2-5.0); Alkaline Phosphatase 247 U/L (45-117); Anion Gap 10 (5-15); BUN 18 mg/dL (7-18); CPK Total, Creatine Kinase 55 U/L (26-192); Calcium,Total 9.6 mg/dL (8.5-10.1); Chloride 106 mmol/L (98-107); Creatinine, Serum 0.86 mg/dL (0.55-1.02); EST Glomerular Filtration Rate 73 mL/min (>60); Est Glom Filt Rate - Afr Amer 88 mL/min (>60); Glucose 162 mg/dL (74-106); Potassium 4.9 mmol/L (3.5-5.1); Protein, Total 7.7 g/dL (6.4-8.2); Sodium Level 139 mmol/L (136-145)
== END | disposition home or self-care (01) ==
PROVIDERS: PCP Family Medicine; Visit Provider Internal Medicine Infectious Disease
DX: L03.115 Cellulitis of right lower limb (principal)
CPT/HCPCS: 80053; 82550; 85027

== ENCOUNTER → 2021-12-08 | Outpatient (CLI) | payer MEDICAID, SELFPAY ==
[2021-12-08 14:08] LABS: Hematocrit 35.7 % (37-47); Hemoglobin 11.5 g/dL (12.0-15.0); Mean Corp Hgb Conc 32.2 g/dL (32-36); Mean Corpuscular Hgb 29.7 pg (27.0-32.0); Mean Corpuscular Volume 92.2 fL (81-99); Mean Platelet Vol. 9.8 fl (6.2-12.0); Platelet Count 375 K/mm3 (150-450); RBC Distribution Width CV 14.4 % (11.6-14.6); RBC Distribution Width SD 48.5 fl (35.1-43.9); Red Blood Count 3.87 M/mm3 (4.2-5.4); White Blood Count 10.1 K/mm3 (4.4-11.0)
[2021-12-08 14:23] LABS: AST(SGOT) 16 U/L (15-37); Alanine Aminotransfer ALT/SGPT 21 U/L (13-56); Albumin, Serum 3.4 g/dL (3.2-5.0); Alkaline Phosphatase 193 U/L (45-117); Anion Gap 9 (5-15); BUN 21 mg/dL (7-18); BUN/Creat Ratio 30.1 RATIO (10-20); CPK Total, Creatine Kinase 70 U/L (26-192); Calcium,Total 9.3 mg/dL (8.5-10.1); Chloride 108 mmol/L (98-107); EST Glomerular Filtration Rate 92 mL/min (>60); Est Glom Filt Rate - Afr Amer 111 mL/min (>60); Globulin 3.5 g/dL (2.2-4.2); Glucose 153 mg/dL (74-106); Potassium 4.9 mmol/L (3.5-5.1); Protein, Total 6.9 g/dL (6.4-8.2); Sodium Level 141 mmol/L (136-145)
== END | disposition home or self-care (01) ==
DX: R78.81 Bacteremia (principal)
CPT/HCPCS: 80053; 82550; 85027

== ENCOUNTER → 2021-12-16 | Outpatient (CLI) | payer MEDICAID, SELFPAY ==
[2021-12-16 09:14] VITALS: BP 125/70; PULSE 96; RESP 16; TEMP 36.1; O2SAT 98; BMI 25.5
== END | disposition home or self-care (01) ==
PROVIDERS: PCP Family Medicine; Visit Provider Internal Medicine Infectious Disease
DX: R78.81 Bacteremia (principal)

== ENCOUNTER 2021-12-18 11:00 | Outpatient (RCR) | payer MEDICAID, SELFPAY ==
[2021-11-21 00:22] VITALS: BP 128/78; PULSE 109; RESP 18; TEMP 35.9; BMI 26.9
[2021-11-27 12:38] VITALS: BP 98/55; PULSE 115; TEMP 36.1; BMI 26.9
--- NOTE | 2021-11-27 13:25 | PN.PCM_ITS ---
History of Present Illness Date of Service: 11/27/21 Chief Complaint: right foot ulcer and Right Leg wound History of Wound: This 55-year-old female presents for care of right foot wound. She had surgery at [facility] in November 2020. She denies current fever, chill, nausea, vomiting. She denies delays in wound care and has been applying saline wet-to-dry to help with home health. She relates her bone biopsy that was obtained during her foot surgery was negative for osteomyelitis. She has a PICC placed and saw infectious disease specialist, Dr. Paez at [facility]. She relates she is almost complete with her IV antibiotic course. She is offloading with a surgical shoe. She takes nutritional supplementation including vitamin D and B. She denies claudication. She does have rest paresthesias. She is diabetic with an A1c of over 8%. She also has history of back injuries. Since her last visit, she reports she had thick fluid squirting out of the wound with application of her silver dressing. She was concerned it was infected and called in yesterday. She is advised by nursing staff to go to the emergency room if she thought she had a rapid onset infection. She relates she is scheduled to see her surgeon tomorrow. She did not obtain the previously ordered labs and foot x-rays. She denies current redness or odor. Medical records reviewed from and it is noted she had right foot incision and drainage of fifth metatarsal on 12-04-20. Her surgeon was Dr. Blanchard. She is advised wearing AFO brace. It is noted she started on Bactrim and then after the surgery she was placed on IV antibiotics. She later developed an infection of her right foot ulceration and underwent I&D with wide debridement on 05-23-21 and 05-28-[address] Alexandre and Dr. Gonzalez. Cultures were positive for MRSA and Enterococcus and was placed on IV Vancomycin by infectious disease. She was discharged to a shelter facility with instructions for wound vac application to right anterior leg and lateral right foot and wet to dry Dakin's dressings to the right foot. Allergies: Clindamycin Medications cyclo-Benzapril, NuvaRing, Advil, Cytomel, [place], armodafinil, Singulair, Synthroid, Lyrica Past medical history: diabetes and history of back surgery, ankle surgery, right knee arthroscopy Social history: former smoker and no current tobacco use; quit in 1981 Subjective Subjective This is a 55-year-old female who presents to the wound care center for follow-up of a right anterior lower extremity wound. She was recently admitted to [facility] for MRSA bacteremia and discharged home on 11/26/2021 with PICC line placed in left arm. She denies any pain to the right lower extremity or foot. She denies any constitutional symptoms currently. She has no further complaints today. Objective Data Objective Data Vital Signs: Vital Signs Temp Pulse Resp BP 97.0 F L 115 H 18 98/55 L 11/27/21 12:38 11/27/21 12:38 11/21/21 00:22 11/27/21 12:38 Weight: 80.286 kg Body Mass Index (BMI) 26.9 Physical Exam Const alert, oriented x3 and no apparent distress General Appearance: cooperative and comfortable HEENT normocephalic Eyes General Eye: normal appearance of both eyes Neck General: normal visual inspection Lymph Lymphatic: no lymphadenopathy noted and no lymphedema noted Resp normal respiratory effort Cardio regular rate and regular rhythm Extremity normal capillary refill, no joint enlargement, no calf tenderness and no pedal edema Peripheral Pulses: Yes posterior tibial pulses present and dorsalis pedis pulses present Skin no rashes or lesions noted, skin turgor normal and no jaundice General Skin Exam: Negative for erythema Wound Narrative: Ulceration site to the right anterior lower extremity. Right lateral foot and medial foot cicatrix noted. Surrounding skin is intact, supple, and atrophic. Ulcerative site is secondary to a previous surgical debridement of an abscess of the foot and anterior compartment of the lower extremity. Ulcerative site demonstrates no erythema, purulent drainage, malodor, or other localized signs of infection. Neuro oriented x3 and moves all extremities Debridement Note Debridement Note Wound debrided: Right anterior lower extremity Laterality: Right Wound Grade/Stage: Gonzalez stage III Type of Debridement: Excisional debridement Anesthesia Used: 5% Lidocaine Gel Depth: Down to and including healthy tissue and in the subcutaneous layer Percentage of wound debrided: 100 Instrument Used: 3mm curette Tissue Removed: Fibrous, devitalized subcutaneous, biofilm, slough Severity: Fat Layer Exposed Amount of bleeding with debridement: Mild Bleeding Controlled with: Compression and gauze Patient tolerated procedure: Patient tolerated procedure well Post-Debridement Measurements and Additional Note: Post-Debridement Measurements/Treatment WC - Nurse 1 - General Ulcer Assessment Start: 11/27/21 12:27 Freq: Status: Active Protocol: RUKHSANA Activity Type Activity Date Activity User E-sign Co-sign Detail Recorded Client Recorded Date Recorded By Document 11/27/21 12:38 LAYLA [id number] 11/27/21 12:40 LAYLA 11/27/21 12:38 - Today's Visit Information Type of service Follow-up Visit (Physician/SPECIAL POLICE ) Arrival Mode Ambulatory Patient Identification Verified (Name & Yes ) Height and Weight Body Mass Index (BMI) 26.9 BMI Classification Overweight Vital Signs Temperature (97.8 F-99.1 F) 97.0 F L Temperature Source Temporal Pulse Rate (60-100) 115 H Pulse Location Monitor Blood Pressure (90/60-120/80) 98/55 L Blood Pressure Mean (mm Hg) 69 Source Monitor Position Semi-Fowlers Blood Pressure Location Right Arm History Since Last Visit- (Skip if this is Patient's initial visit) Have you changed medications since your No last visit? Any new allergies or adverse reactions No Had a fall/change in ADL's that may No increase risk of falls Signs or symptoms of abuse and/or No neglect since last visit Have you been in the hospital since your No last visit? Has dressing in place as prescribed Yes Has compression in place as prescribed Yes Has offloadiing in place as prescribed N/A Experienced any changes in pain level or No management Left Footwear Regular Shoe Right Footwear Regular Shoe Pain Scale: 0-10 Numeric Is Patient Pain Free? Yes ALISSA - Nurse 1 - General Ulcer Measurement Start: 11/27/21 12:27 Freq: Status: Active Protocol: Activity Type Activity Date Activity User E-sign Co-sign Detail Recorded Client Recorded Date Recorded By Document 11/27/21 12:38 LAYLA [id number] 11/27/21 12:40 LAYLA 11/27/21 12:38 Wound Center Nurse 1 #2 R MID LOWER LEG -Current Size (cm) - Length 1.6 -Current Size (cm) - Width 1.2 -Current Size (cm) - Depth 0.1 -Total Square Cm 1.92 -Exudate Amt Small -Exudate Type Serosanguineous -Wound Margin Distinct, Outline Attached -Granulation Amt Small (1-33%) -Granulation Quality [place] -Necrosis Amt None Present (0 %) -Texture (Marie-wound Skin Appearance) Assessed, Scarring -Moisture (Marie-wound Skin Appearance) No Abnormality, Assessed -Color (Marie-wound Skin Appearance) No Abnormality, Assessed -Temperature (Marie-wound Skin No Abnormality Appearance) (Pt Warm) -Tenderness on Palpation (Marie-wound No Skin Appearance) -Ulcer Cleansing Rinsed/ Irrigated with Saline -Foul Odor after Cleansing No -Anesthetic Used 4% Lidocaine Solution WC - Nurse 2 - General Ulcer CM Notes Start: 11/27/21 12:27 Freq: Status: Active Protocol: Activity Type Activity Date Activity User E-sign Co-sign Detail Recorded Client Recorded Date Recorded By Document 11/27/21 12:28 RAQUEL [id number] 11/27/21 12:29 PL 11/27/21 12:28 Wound Center Nurse 2 -Time 11:42 -Correct Patient Yes -Correct Side, Site, Position Yes -Correct Procedure Yes -Procedure Performed Yes -Type of Procedure Debridement -Clinical Debridement Subcutaneous -Tissue Removed Subcutaneous -Post Debridement (cm) - Length 1.5 -Post Debridement (cm) - Width 1.5 -Post Debridement (cm) - Depth 0.1 -Total Square (Post) (cm) 2.25 -Area of Debridement (cm) - Length 1.5 -Area of Debridement (cm) - Width 1.5 -Total Square (Area) (cm) 2.25 -Tunneling No -Undermining/Tunneling No -Circular Undermining No -Wound/Ulcer Outcome Not Healed -Ulcer Cleansing Rinsed/ Irrigated with Saline -Foul Odor after Cleansing No -Bioengineered Tissue No -Bleeding Controlled with Pressure -Treatment Response Procedure Tolerated Well -Debridement - Subq, 1st 20sq cm Yes Pain Scale: 0-10 Numeric Is Patient Pain Free? Yes Assessment/Plan Assessment/Plan (1) Non-pressure 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: CODE(S): L97.212 - Non-pressure 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 (2) Type 2 diabetes mellitus with foot ulcer: CODE(S): E11.621 - Type 2 diabetes mellitus with foot ulcer; L97.509 - Non-pressure chronic ulcer of other part of unspecified foot with unspecified severity QUALIFIERS: Diabetes mellitus termite exterminator helper insulin use: with termite exterminator helper use Qualified Code(s): E11.621 - Type 2 diabetes mellitus with foot ulcer; L97.509 - Non-pressure chronic ulcer of other part of unspecified foot with uns pecified severity; Z79.4 - [facility] (current) use of insulin (3) Diabetes mellitus with diabetic polyneuropathy: CODE(S): E11.42 - Type 2 diabetes mellitus with diabetic polyneuropathy QUALIFIERS: Diabetes mellitus type: type 2 Diabetes mellitus termite exterminator helper insulin use: without termite exterminator helper use Qualified Code(s): E11.42 - Type 2 diabetes mellitus with diabetic polyneuropathy (4) 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: CODE(S): L97.512 - 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 (5) Charcot's joint of right foot: CODE(S): M14.671 - Charcot's joint, right ankle and foot (6) Hypothyroidism: CODE(S): E03.9 - Hypothyroidism, unspecified QUALIFIERS: Hypothyroidism type: unspecified Qualified Code(s): E03.9 - Hypothyroidism, unspecified PLAN: Plan This is a 55-year-old female with history of wide I&D and deep debridement of the right foot and ankle from 05/23/2021 and 05/28/[address] Alexand[address] and Dr. Gonzalez, podiatric specialist.? She has history of MRSA infection.? Her wounds are complicated by diabetes mellitus type 2 with peripheral polyneuropathy, Charcot joint deformity of the right foot, hypothyroidism. Her right lower extremity anterior wound is a Gonzalez grade 3 at her right lateral foot wound is a Gonzalez grade 3, right medial foot wound Gonzalez grade 3.? She underwent a surgical debridement of all 3 of these Gonzalez grade 3 wounds to the right lower extremity on 05/23/2021 to drain a deep abscess and debride necrotic tissue and tendon.? She underwent a second debridement procedure on 05/28/2021 to drain deep anterior compartment abscess of the right lower extremity.? She had undergone a nd completed 8 weeks of IV Daptomycin and her PICC line was pulled on 07/09/2021.? Patient seen and evaluated. She was recently admitted to the [facility] on 11/23/2021 for fever of unknown origin. She was found to have MRSA bacteremia and she underwent treatment with IV antibiotics, Cubicin. PICC line was placed and she will continue 6 weeks of IV antibiotics and follow with course of oral antibiotics. During hospital stay there was no erythema, purulent drainage, malodor or other localized signs of infection to the right lower extremity. MRI was performed on 11/25/2021 of the right lower extremity demonstrating chronic Charcot changes to the midfoot with no osteomyelitis seen. The right anterior lower extremity wound is continuing to progress closing at the most proximal and most distal portions with continued new skin coverage. Wound measures 1.7 cm x 1.6 cm x 0.1 cm. Her wounds demonstrate no signs of infection.? The surrounding skin is intact and atrophic. This wound is continuing with good progression towards full closure.? Wound site dressed with Cherelle and dry sterile dressing. Right lateral foot wound remains healed. The medial right foot wound remains healed with a stable cicatrix. She may continue to ambulate cam walker/offloading boot.?Order for physical therapy placed today as she has lost a considerable amount of muscle bulk due to her nonweightbearing status.?This will allow her to regain strength, balance, and coordination as she begins to ambulate. I will look to obtain an AFO to be worn with her shoe gear for continued support and offloading of the right foot. She continues to make good progress in her healing status and is very pleased with her treatment progress. I discussed with her to continue to ensure proper diabetic glycemic control and intake of protein to ensure wound healing and graft take. The following work up and care recommendations were made: Dressing: Cherelle and DSD Wash: Soap and Water Tissue growth optimization: Cherelle Offload: Nonweightbearing right lower extremity with elevation via soft pillows Vascular: Edema: Elevate lower extremity at times of rest Infection: No localized signs of infection Pain: Continue with Motrin and Tylenol extra strength at home Host factors: History of MRSA and Enterococcus infection.? Diabetes type 2 with peripheral polyneuropathy, discussed proper glycemic control and intake of protein to ensure wound healing. Radiographs: Radiographs from 11/06/21 demonstrate degenerative changes at the tarsometatarsal and naviculocuneiform joints secondary to Charcot deformity.? The site is stable with significant sclerosis of bone noted.? There are no plantar prominences noted.? She does have some decreased bone density to the distal tibia and a previous ORIF of the fibula.? Her plate and screws are intact with no signs of failure. MRI was performed on 11/25/2021 of the right lower extremity demonstrating chronic Charcot changes to the midfoot with no osteomyelitis seen. ? I answered all the patient's questions.? To return to the wound healing center in 1 week or call sooner if the patient has any questions or concerns. Note: [employer] speech recognition oracle database manager software was used to create portions of this document. Sound-alike and misspelled words, as well as other oracle database manager errors may be contained in the documentation.
--- NOTE | 2021-12-04 14:50 | PCM.WC.PN ---
History of Present Illness Date of Service: 12/04/21 Chief Complaint: right foot ulcer and Right Leg wound History of Wound: This 55-year-old female presents for care of right foot wound. She had surgery at [facility] in November 2020. She denies current fever, chill, nausea, vomiting. She denies delays in wound care and has been applying saline wet-to-dry to help with home health. She relates her bone biopsy that was obtained during her foot surgery was negative for osteomyelitis. She has a PICC placed and saw infectious disease specialist, Dr. Paez at [facility]. She relates she is almost complete with her IV antibiotic course. She is offloading with a surgical shoe. She takes nutritional supplementation including vitamin D and B. She denies claudication. She does have rest paresthesias. She is diabetic with an A1c of over 8%. She also has history of back injuries. Since her last visit, she reports she had thick fluid squirting out of the wound with application of her silver dressing. She was concerned it was infected and called in yesterday. She is advised by nursing staff to go to the emergency room if she thought she had a rapid onset infection. She relates she is scheduled to see her surgeon tomorrow. She did not obtain the previously ordered labs and foot x-rays. She denies current redness or odor. Medical records reviewed from and it is noted she had right foot incision and drainage of fifth metatarsal on 12-04-20. Her surgeon was Dr. Blanchard. She is advised wearing AFO brace. It is noted she started on Bactrim and then after the surgery she was placed on IV antibiotics. She later developed an infection of her right foot ulceration and underwent I&D with wide debridement on 05-23-21 and 05-28-[address] Alexandre and Dr. Gonzalez. Cultures were positive for MRSA and Enterococcus and was placed on IV Vancomycin by infectious disease. [facility] with instructions for wound vac application to right anterior leg and lateral right foot and wet to dry Dakin's dressings to the right foot. Allergies: Clindamycin Medications cyclo-Benzapril, NuvaRing, Advil, Cytomel, [place], armodafinil, Singulair, Synthroid, Lyrica Past medical history: diabetes and history of back surgery, ankle surgery, right knee arthroscopy Social history: former smoker and no current tobacco use; quit in 1981 Subjective Subjective This is a 55-year-old female who presents to the wound care center for follow-up of a right anterior lower extremity wound.? She was admitted to [facility] for MRSA bacteremia and discharged home on 11/26/2021 with PICC line placed in left arm. She states she is doing well and receiving IV antibiotics via PICC line. She denies any pain to the right lower extremity or foot.? She denies any constitutional symptoms currently.? She has no further complaints today. Objective Data Objective Data Vital Signs: Vital Signs Temp Pulse Resp BP 97.0 F L 115 H 18 98/55 L 11/27/21 12:38 11/27/21 12:38 11/21/21 00:22 11/27/21 12:38 Weight: 80.286 kg Body Mass Index (BMI) 26.9 Physical Exam Const alert, oriented x3 and no apparent distress General Appearance: cooperative and comfortable HEENT normocephalic Eyes General Eye: normal appearance of both eyes Neck General: normal visual inspection Lymph Lymphatic: no lymphadenopathy noted and no lymphedema noted Resp normal respiratory effort Cardio regular rate and regular rhythm Extremity normal capillary refill, no joint enlargement, no calf tenderness and no pedal edema Skin no rashes or lesions noted, skin turgor normal and no jaundice General Skin Exam: Negative for erythema Wound Narrative: Ulceration site to the right anterior lower extremity. Right lateral foot and medial foot cicatrix noted. Surrounding skin is intact, supple, and atrophic. Ulcerative site is secondary to a previous surgical debridement of an abscess of the foot and anterior compartment of the lower extremity. Ulcerative site demonstrates no erythema, purulent drainage, malodor, or other localized signs of infection. Neuro oriented x3 and moves all extremities Debridement Note Debridement Note Wound debrided: Right lower extremity Laterality: Right Wound Grade/Stage: Gonzalez stage III Type of Debridement: Selective debridement Anesthesia Used: 5% Lidocaine Gel Depth: Down to and including healthy tissue and in the subcutaneous layer Percentage of wound debrided: 100 Instrument Used: 3mm curette Tissue Removed: Fibrous, devitalized subcutaneous, biofilm, slough Severity: Fat Layer Exposed Amount of bleeding with debridement: Mild Bleeding Controlled with: Compression and gauze Patient tolerated procedure: Patient tolerated procedure well Post-Debridement Measurements and Additional Note: Post-Debridement Measurements/Treatment WC - Nurse 1 - General Ulcer Assessment Start: 11/27/21 12:27 Freq: Status: Active Protocol: RUKHSANA Activity Type Activity Date Activity User E-sign Co-sign Detail Recorded Client Recorded Date Recorded By Document 11/27/21 12:38 LAYLA [id number] 11/27/21 12:40 LAYLA 11/27/21 12:38 - Today's Visit Information Type of service Follow-up Visit (Physician/INSTRUCTOR LOOPING ) Arrival Mode Ambulatory Patient Identification Verified (Name & Yes ) Height and Weight Body Mass Index (BMI) 26.9 BMI Classification Overweight Vital Signs Temperature (97.8 F-99.1 F) 97.0 F L Temperature Source Temporal Pulse Rate (60-100) 115 H Pulse Location Monitor Blood Pressure (90/60-120/80) 98/55 L Blood Pressure Mean (mm Hg) 69 Source Monitor Position Semi-Fowlers Blood Pressure Location Right Arm History Since Last Visit- (Skip if this is Patient's initial visit) Have you changed medications since your No last visit? Any new allergies or adverse reactions No Had a fall/change in ADL's that may No increase risk of falls Signs or symptoms of abuse and/or No neglect since last visit Have you been in the hospital since your No last visit? Has dressing in place as prescribed Yes Has compression in place as prescribed Yes Has offloadiing in place as prescribed N/A Experienced any changes in pain level or No management Left Footwear Regular Shoe Right Footwear Regular Shoe Pain Scale: 0-10 Numeric Is Patient Pain Free? Yes ALISSA - Nurse 1 - General Ulcer Measurement Start: 11/27/21 12:27 Freq: Status: Active Protocol: Activity Type Activity Date Activity User E-sign Co-sign Detail Recorded Client Recorded Date Recorded By Document 11/27/21 12:38 LAYLA [id number] 11/27/21 12:40 LAYLA 11/27/21 12:38 Wound Center Nurse 1 #2 R MID LOWER LEG -Current Size (cm) - Length 1.6 -Current Size (cm) - Width 1.2 -Current Size (cm) - Depth 0.1 -Total Square Cm 1.92 -Exudate Amt Small -Exudate Type Serosanguineous -Wound Margin Distinct, Outline Attached -Granulation Amt Small (1-33%) -Granulation Quality Lowry -Necrosis Amt None Present (0 %) -Texture (Marie-wound Skin Appearance) Assessed, Scarring -Moisture (Marie-wound Skin Appearance) No Abnormality, Assessed -Color (Marie-wound Skin Appearance) No Abnormality, Assessed -Temperature (Marie-wound Skin No Abnormality Appearance) (Pt Warm) -Tenderness on Palpation (Marie-wound No Skin Appearance) -Ulcer Cleansing Rinsed/ Irrigated with Saline -Foul Odor after Cleansing No -Anesthetic Used 4% Lidocaine Solution WC - Nurse 2 - General Ulcer CM Notes Start: 11/27/21 12:27 Freq: Status: Active Protocol: Activity Type Activity Date Activity User E-sign Co-sign Detail Recorded Client Recorded Date Recorded By Document 11/27/21 12:28 PL [id number] 11/27/21 12:29 PL Document 12/04/21 13:02 PL [id number] 12/04/21 13:03 PL 11/27/21 12/04/21 12:28 13:02 Wound Center Nurse 2 #2 R MID LOWER LEG -Time 11:42 12:00 -Correct Patient Yes Yes -Correct Side, Site, Position Yes Yes -Correct Procedure Yes Yes -Procedure Performed Yes Yes -Type of Procedure Debridement Debridement -Clinical Debridement Subcutaneous Subcutaneous -Tissue Removed Subcutaneous Subcutaneous -Post Debridement (cm) - Length 1.5 1.0 -Post Debridement (cm) - Width 1.5 1.0 -Post Debridement (cm) - Depth 0.1 0.1 -Total Square (Post) (cm) 2.25 1.00 -Area of Debridement (cm) - Length 1.5 1.0 -Area of Debridement (cm) - Width 1.5 1.0 -Total Square (Area) (cm) 2.25 1.00 -Tunneling No No -Undermining/Tunneling No No -Circular Undermining No No -Wound/Ulcer Outcome Not Healed Not Healed -Ulcer Cleansing Rinsed/ Rinsed/ Irrigated with Irrigated with Saline Saline -Foul Odor after Cleansing No No -Bioengineered Tissue No No -Bleeding Controlled with Pressure Pressure -Treatment Response Procedure Procedure Tolerated Well Tolerated Well -Debridement - Subq, 1st 20sq cm Yes Yes Pain Scale: 0-10 Numeric Is Patient Pain Free? Yes Yes Assessment/Plan Assessment/Plan (1) Non-pressure 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: CODE(S): L97.212 - Non-pressure 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 (2) Type 2 diabetes mellitus with foot ulcer: CODE(S): E11.621 - Type 2 diabetes mellitus with foot ulcer; L97.509 - Non-pressure chronic ulcer of other part of unspecified foot with unspecified severity QUALIFIERS: Diabetes mellitus extermination inspector insulin use: with prison use Qualified Code(s): E11.621 - Type 2 diabetes mellitus with foot ulcer; L97.509 - Non-pressure chronic ulcer of other part of unspecified foot with unspecified severity; Z79.4 - MCC (current) use of insulin (3) Diabetes mellitus with diabetic polyneuropathy: CODE(S): E11.42 - Type 2 diabetes mellitus with diabetic polyneuropathy QUALIFIERS: Diabetes mellitus type: type 2 Diabetes mellitus prison insulin use: without extermination inspector use Qualified Code(s): E11.42 - Type 2 diabetes mellitus with diabetic polyneuropathy (4) 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: CODE(S): L97.512 - 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 (5) Charcot's joint of right foot: CODE(S): M14.671 - Charcot's joint, right ankle and foot (6) Hypothyroidism: CODE(S): E03.9 - Hypothyroidism, unspecified QUALIFIERS: Hypothyroidism type: unspecified Qualified Code(s): E03.9 - Hypothyroidism, unspecified PLAN: Plan This is a 55-year-old female with history of wide I&D and deep debridement of the right foot and ankle from 05/23/2021 and 05/28/[address] Alexand[address] and Dr. Gonzalez, podiatric specialist.? She has history of MRSA infection.? Her wounds are complicated by diabetes mellitus type 2 with peripheral polyneuropathy, Charcot joint deformity of the right foot, hypothyroidism. Her right lower extremity anterior wound is a Gonzalez grade 3 at her right lateral foot wound is a Gonzalez grade 3, right medial foot wound Gonzalez grade 3.? She underwent a surgical debridement of all 3 of these Gonzalez grade 3 wounds to the right lower extremity on 05/23/2021 to drain a deep abscess and debride necrotic tissue and tendon.? She underwent a second debridement procedure on 05/28/2021 to drain deep anterior compartment abscess of the right lower extremity.? She had undergone and completed 8 weeks of IV Daptomycin and her PICC line was pulled on 07/09/2021.? Patient seen and evaluated. She currently has PICC line placed and receiving IV antibiotics, Cubicin, to treat MRSA bacteremia. Upon completion of her 6 weeks of IV antibiotic she will follow with a course of oral antibiotics per ID. The right anterior lower extremity wound is continuing to progress closing at the most proximal and most distal portions with continued new skin coverage. There is no erythema, malodor, purulent drainage, fluctuance or palpable bogginess, or other localized signs of infection. Wound measures 1.0 cm x 1.0 cm x 0.1 cm.? The surrounding skin is intact and atrophic. This wound is continuing with good progression towards full closure.? Wound site dressed with Cherelle and dry sterile dressing. Right lateral foot wound remains healed. The medial right foot wound remains healed with a stable cicatrix. She may continue to ambulate cam walker/offloading boot.? She has order for physical therapy and will begin sessions as she has lost a considerable amount of muscle bulk due to her nonweightbearing status.?This will allow her to regain strength, balance, and coordination as she begins to ambulate. I will look to obtain an AFO(Vision Source brace versus Fracisco brace) to be worn with her shoe gear for continued support and offloading of the right foot. She continues to make good progress in her healing status and is very pleased with her treatment progress. I discussed with her to continue to ensure proper diabetic glycemic control and intake of protein to ensure wound healing and graft take. The following work up and care recommendations were made: Dressing: Cherelle and DSD Wash: Soap and Water Tissue growth optimization: Cherelle Offload: Nonweightbearing right lower extremity with elevation via soft pillows Vascular: Edema: Elevate lower extremity at times of rest Infection: No localized signs of infection Pain: Continue with Motrin and Tylenol extra strength at home Host factors: History of MRSA and Enterococcus infection.? Diabetes type 2 with peripheral polyneuropathy, discussed proper glycemic control and intake of protein to ensure wound healing. Radiographs: Radiographs from 11/06/21 demonstrate degenerative changes at the tarsometatarsal and naviculocuneiform joints secondary to Charcot deformity.? The site is stable with significant sclerosis of bone noted.? There are no plantar prominences noted.? She does have some decreased bone density to the distal tibia and a previous ORIF of the fibula.? Her plate and screws are intact with no signs of failure. MRI was performed on 11/25/2021 of the right lower extremity demonstrating chronic Charcot changes to the midfoot with no osteomyelitis seen. ? I answered all the patient's questions.? To return to the wound healing center in 1 week or call sooner if the patient has any questions or concerns. Note: [employer] speech recognition business development engineer software was used to create portions of this document. Sound-alike and misspelled words, as well as other business development engineer errors may be contained in the documentation.
[2021-12-11 11:07] VITALS: BP 120/75; PULSE 88; TEMP 35.9; BMI 26.9
--- NOTE | 2021-12-11 13:30 | PCM.WC.PN ---
History of Present Illness Date of Service: 12/11/21 Chief Complaint: right foot ulcer and Right Leg wound History of Wound: This 55-year-old female presents for care of right foot wound. She had surgery at [facility] in November 2020. She denies current fever, chill, nausea, vomiting. She denies delays in wound care and has been applying saline wet-to-dry to help with home health. She relates her bone biopsy that was obtained during her foot surgery was negative for osteomyelitis. She has a PICC placed and saw infectious disease specialist, Dr. Paez at [facility]. She relates she is almost complete with her IV antibiotic course. She is offloading with a surgical shoe. She takes nutritional supplementation including vitamin D and B. She denies claudication. She does have rest paresthesias. She is diabetic with an A1c of over 8%. She also has history of back injuries. Since her last visit, she reports she had thick fluid squirting out of the wound with application of her silver dressing. She was concerned it was infected and called in yesterday. She is advised by nursing staff to go to the emergency room if she thought she had a rapid onset infection. She relates she is scheduled to see her surgeon tomorrow. She did not obtain the previously ordered labs and foot x-rays. She denies current redness or odor. Medical records reviewed from and it is noted she had right foot incision and drainage of fifth metatarsal on 12-04-20. Her surgeon was Dr. Blanchard. She is advised wearing AFO brace. It is noted she started on Bactrim and then after the surgery she was placed on IV antibiotics. She later developed an infection of her right foot ulceration and underwent I&D with wide debridement on 05-23-21 and 05-28-[address] Alexanrde and Dr. Gonzalez. Cultures were positive for MRSA and Enterococcus and was placed on IV Vancomycin by infectious disease. She was discharged to a long term facility with instructions for wound vac application to right anterior leg and lateral right foot and wet to dry Dakin's dressings to the right foot. Allergies: Clindamycin Medications cyclo-Benzapril, NuvaRing, Advil, Cytomel, Townsend, armodafinil, Singulair, Synthroid, Lyrica Past medical history: diabetes and history of back surgery, ankle surgery, right knee arthroscopy Social history: former smoker and no current tobacco use; quit in 1981 Subjective Subjective This is a 56-year-old female who presents to the wound care center for follow-up of a right anterior lower extremity wound.? She states she is doing well and receiving IV antibiotics via PICC line. She denies any pain to the right lower extremity or foot.? She denies any constitutional symptoms currently.? She has no further complaints today. Objective Data Objective Data Vital Signs: Vital Signs Temp Pulse Resp BP 96.7 F L 88 18 120/75 12/11/21 11:07 12/11/21 11:07 11/21/21 00:22 12/11/21 11:07 Weight: 80.286 kg Body Mass Index (BMI) 26.9 Physical Exam Const alert, oriented x3 and no apparent distress General Appearance: cooperative and comfortable HEENT normocephalic Eyes General Eye: normal appearance of both eyes Neck General: normal visual inspection Lymph Lymphatic: no lymphadenopathy noted and no lymphedema noted Resp normal respiratory effort Cardio regular rate and regular rhythm Extremity normal capillary refill, no joint enlargement, no calf tenderness and no pedal edema Skin no rashes or lesions noted, skin turgor normal and no jaundice General Skin Exam: Negative for erythema Wound Narrative: Ulceration site to the right anterior lower extremity. Right lateral foot and medial foot cicatrix noted. Surrounding skin is intact, supple, and atrophic. Ulcerative site is secondary to a previous surgical debridement of an abscess of the foot and anterior compartment of the lower extremity. Ulcerative site demonstrates no erythema, purulent drainage, malodor, or other localized signs of infection. Neuro oriented x3 and moves all extremities Debridement Note Debridement Note Wound debrided: Right lower extremity Laterality: Right Wound Grade/Stage: Gonzalez stage III Type of Debridement: Excisional debridement Anesthesia Used: 5% Lidocaine Gel Depth: Down to and including healthy tissue and in the subcutaneous layer Percentage of wound debrided: 100 Instrument Used: 3mm curette Tissue Removed: Fibrous, devitalized subcutaneous, biofilm, slough Severity: Fat Layer Exposed Amount of bleeding with debridement: Mild Bleeding Controlled with: Compression and gauze Patient tolerated procedure: Patient tolerated procedure well Post-Debridement Measurements and Additional Note: Post-Debridement Measurements/Treatment ALISSA - Nurse 1 - General Ulcer Assessment Start: 11/27/21 12:27 Freq: Status: Active Protocol: RUKHSANA Activity Type Activity Date Activity User E-sign Co-sign Detail Recorded Client Recorded Date Recorded By Document 11/27/21 12:38 KR [id number] 11/27/21 12:40 KR Document 12/11/21 11:07 KR [id number] 12/11/21 11:13 KR 11/27/21 12/11/21 12:38 11:07 WC - Today's Visit Information Type of service Follow-up Visit Follow-up Visit (Physician/COMBINATION OPERATOR (Physician/COMBINATION OPERATOR ) ) Arrival Mode Ambulatory Ambulatory Patient Identification Verified (Name & Yes Yes ) Height and Weight Body Mass Index (BMI) 26.9 26.9 BMI Classification Overweight Overweight Vital Signs Temperature (97.8 F-99.1 F) 97.0 F L 96.7 F L Temperature Source Temporal Temporal Pulse Rate (60-100) 115 H 88 Pulse Location Monitor Monitor Blood Pressure (90/60-120/80) 98/55 L 120/75 Blood Pressure Mean (mm Hg) 69 90 Source Monitor Monitor Position Semi-Fowlers Semi-Fowlers Blood Pressure Location Right Arm Right Arm History Since Last Visit- (Skip if this is Patient's initial visit) Have you changed medications since your No No last visit? Any new allergies or adverse reactions No No Had a fall/change in ADL's that may No No increase risk of falls Signs or symptoms of abuse and/or No No neglect since last visit Have you been in the hospital since your No No last visit? Has dressing in place as prescribed Yes Yes Has compression in place as prescribed Yes N/A Has offloadiing in place as prescribed N/A N/A Experienced any changes in pain level or No No management Left Footwear Regular Shoe Regular Shoe Right Footwear Regular Shoe Regular Shoe Pain Scale: 0-10 Numeric Is Patient Pain Free? Yes Yes WC - Nurse 1 - General Ulcer Measurement Start: 11/27/21 12:27 Freq: Status: Active Protocol: Activity Type Activity Date Activity User E-sign Co-sign Detail Recorded Client Recorded Date Recorded By Document 11/27/21 12:38 LAYLA [id number] 11/27/21 12:40 KR Document 12/11/21 11:07 KR [id number] 12/11/21 11:13 KR 11/27/21 12/11/21 12:38 11:07 Wound Center Nurse 1 #2 R MID LOWER LEG -Current Size (cm) - Length 1.6 0.9 -Current Size (cm) - Width 1.2 0.6 -Current Size (cm) - Depth 0.1 0.1 -Total Square Cm 1.92 0.54 -Exudate Amt Small Small -Exudate Type Serosanguineous Serosanguineous -Wound Margin Distinct, Distinct, Outline Outline Attached Attached -Granulation Amt Small (1-33%) Small (1-33%) -Granulation Quality [place] -Necrosis Amt None Present (0 Small (1-33%) %) -Necrotic Tissue Type Adherent Slough -Texture (Marie-wound Skin Appearance) Assessed, Assessed, Scarring Scarring -Moisture (Marie-wound Skin Appearance) No Abnormality, No Abnormality, Assessed Assessed -Color (Marie-wound Skin Appearance) No Abnormality, No Abnormality, Assessed Assessed -Temperature (Marie-wound Skin No Abnormality No Abnormality Appearance) (Pt Warm) (Pt Warm) -Tenderness on Palpation (Marie-wound No No Skin Appearance) -Ulcer Cleansing Rinsed/ Rinsed/ Irrigated with Irrigated with Saline Saline -Foul Odor after Cleansing No No -Anesthetic Used 4% Lidocaine 5% Lidocaine Solution Gel WC - Nurse 2 - General Ulcer CM Notes Start: 11/27/21 12:27 Freq: Status: Active Protocol: Activity Type Activity Date Activity User E-sign Co-sign Detail Recorded Client Recorded Date Recorded By Document 11/27/21 12:28 [id number] 11/27/21 12:29 Document 12/04/21 13:02 [id number] 12/04/21 13:03 PL Document 12/11/21 13:08 [id number] 12/11/21 13:09 11/27/21 12/04/21 12/11/21 12:28 13:02 13:08 Wound Center Nurse 2 #2 R MID LOWER LEG -Time 11:42 12:00 12:00 -Correct Patient Yes Yes Yes -Correct Side, Site, Position Yes Yes Yes -Correct Procedure Yes Yes Yes -Procedure Performed Yes Yes Yes -Type of Procedure Debridement Debridement Debridement -Clinical Debridement Subcutaneous Subcutaneous Subcutaneous -Tissue Removed Subcutaneous Subcutaneous Subcutaneous -Post Debridement (cm) - Length 1.5 1.0 0.9 -Post Debridement (cm) - Width 1.5 1.0 0.5 -Post Debridement (cm) - Depth 0.1 0.1 0.1 -Total Square (Post) (cm) 2.25 1.00 0.45 -Area of Debridement (cm) - Length 1.5 1.0 0.9 -Area of Debridement (cm) - Width 1.5 1.0 0.5 -Total Square (Area) (cm) 2.25 1.00 0.45 -Tunneling No No No -Undermining/Tunneling No No No -Circular Undermining No No No -Wound/Ulcer Outcome Not Healed Not Healed Not Healed -Ulcer Cleansing Rinsed/ Rinsed/ Not Cleansed Irrigated with Irrigated with Saline Saline -Foul Odor after Cleansing No No No -Bioengineered Tissue No No No -Bleeding Controlled with Pressure Pressure Pressure -Treatment Response Procedure Procedure Procedure Tolerated Well Tolerated Well Tolerated Well -Debridement - Subq, 1st 20sq cm Yes Yes Yes Pain Scale: 0-10 Numeric Is Patient Pain Free? Yes Yes Yes - Nurse 3 - General Ulcer D/C NN Start: 11/27/21 12:27 Freq: Status: Active Protocol: Activity Type Activity Date Activity User E-sign Co-sign Detail Recorded Client Recorded Date Recorded By Document 12/11/21 12:09 LAYLA [id number] 12/11/21 12:10 LAYLA 12/11/21 12:09 Wound Care Nurse 3 #2 R MID LOWER LEG -Ulcer Cleansing Rinsed/ Irrigated with Saline -Primary Dressing Applied C Hydrogel ($), Promogran Cherelle Matter -Primary Dressing Covered/Secured with Dry Gauze,Dry Gauze & Roll Gauze,Secured with Tape -Promogran Cherelle Matter 1 Pain Scale: 0-10 Numeric Is Patient Pain Free? Yes - Visit Discharge Discharge Condition Stable Ambulatory Status Ambulatory Transportation Private Auto Assessment/Plan Assessment/Plan (1) Non-pressure 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: CODE(S): L97.212 - Non-pressure 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 (2) Type 2 diabetes mellitus with foot ulcer: CODE(S): E11.621 - Type 2 diabetes mellitus with foot ulcer; L97.509 - Non-pressure chronic ulcer of other part of unspecified foot with unspecified severity QUALIFIERS: Diabetes mellitus termite control technician insulin use: with residential use Qualified Code(s): E11.621 - Type 2 diabetes mellitus with foot ulcer; L97.509 - Non-pressure chronic ulcer of other part of unspecified foot with unspecified severity; Z79.4 - computer terminal operator (current) use of insulin (3) Diabetes mellitus with diabetic polyneuropathy: CODE(S): E11.42 - Type 2 diabetes mellitus with diabetic polyneuropathy QUALIFIERS: Diabetes mellitus residential insulin use: without residential use Diabetes mellitus type: type 2 Qualified Code(s): E11.42 - Type 2 diabetes mellitus with diabetic polyneuropathy (4) 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: CODE(S): L97.512 - 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 (5) Charcot's joint of right foot: CODE(S): M14.671 - Charcot's joint, right ankle and foot (6) Hypothyroidism: CODE(S): E03.9 - Hypothyroidism, unspecified QUALIFIERS: Hypothyroidism type: unspecified Qualified Code(s): E03.9 - Hypothyroidism, unspecified PLAN: Plan This is a 55-year-old female with history of wide I&D and deep debridement of the right foot and ankle from 05/23/2021 and 05/28/[address] Alexand[address] and Dr. Gonzalez, podiatric specialist.? She has history of MRSA infection.? Her wounds are complicated by diabetes mellitus type 2 with peripheral polyneuropathy, Charcot joint deformity of the right foot, hypothyroidism. Her right lower extremity anterior wound is a Gonzalez grade 3 at her right lateral foot wound is a Gonzalez grade 3, right medial foot wound Gonzalez grade 3.? She underwent a surgical debridement of all 3 of these Gonzalez grade 3 wounds to the right lower extremity on 05/23/2021 to drain a deep abscess and debride necrotic tissue and tendon.? She underwent a second debridement procedure on 05/28/2021 to drain deep anterior compartment abscess of the right lower extremity.? She had undergone and completed 8 weeks of IV Daptomycin and her PICC line was pulled on 07/09/2021.? Patient seen and evaluated. She currently has PICC line placed and receiving IV antibiotics, Cubicin, to treat MRSA bacteremia. Upon completion of her 6 weeks of IV antibiotic she will follow with a course of oral antibiotics per ID. The right anterior lower extremity wound is continuing to progress closing at the most proximal and most distal portions with continued new skin coverage. There is no erythema, malodor, purulent drainage, fluctuance or palpable bogginess, or other localized signs of infection. Wound on went debridement as noted in clinical panel above today. Wound measures 0.9 cm x 0.5 cm x 0.1 cm.? The surrounding skin is intact and atrophic. This wound is continuing with good progression towards full closure.?Wound site dressed with Cherelle and dry sterile dressing. Right lateral foot wound remains healed. The medial right foot wound remains healed with a stable cicatrix. She may continue to ambulate cam walker/offloading boot.?She is going to physical therapy to rebuild strength as she has lost a considerable amount of muscle bulk due to her nonweightbearing status.?This will allow her to regain strength, balance, and coordination as she continues to ambulate. I discussed with her today obtaining an AFO(Axial brace versus Fracisco brace) to be worn with her shoe gear for continued support and offloading of the right foot as she returns to shoe gear. She continues to make good progress in her healing status and is very pleased with her treatment progress. I discussed with her to continue to ensure proper diabetic glycemic control and intake of protein to ensure wound healing and graft take. The following work up and care recommendations were made: Dressing: Cherelle and DSD Wash: Soap and Water Tissue growth optimization: Cherelle Offload: Nonweightbearing right lower extremity with elevation via soft pillows Vascular: Edema: Elevate lower extremity at times of rest Infection: No localized signs of infection Pain: Continue with Motrin and Tylenol extra strength at home Host factors: History of MRSA and Enterococcus infection.? Diabetes type 2 with peripheral polyneuropathy, discussed proper glycemic control and intake of protein to ensure wound healing. Radiographs: Radiographs from 11/06/21 demonstrate degenerative changes at the tarsometatarsal and naviculocuneiform joints secondary to Charcot deformity.? The site is stable with significant sclerosis of bone noted.? There are no plantar prominences noted.? She does have some decreased bone density to the distal tibia and a previous ORIF of the fibula.? Her plate and screws are intact with no signs of failure. MRI was performed on 11/25/2021 of the right lower extremity demonstrating chronic Charcot changes to the midfoot with no osteomyelitis seen. ? I answered all the patient's questions.? To return to the wound healing center in 1 week or call sooner if the patient has any questions or concerns. Note: [employer] speech recognition animal pathology teacher software was used to create portions of this document. Sound-alike and misspelled words, as well as other animal pathology teacher errors may be contained in the documentation.
[2021-12-18 11:00] VITALS: BP 108/69; PULSE 119; TEMP 36.6; BMI 26.9
--- NOTE | 2021-12-18 14:04 | PN.PCM_ITS ---
History of Present Illness Date of Service: 12/18/21 Chief Complaint: right foot ulcer and Right Leg wound History of Wound: This 55-year-old female presents for care of right foot wound. She had surgery at [facility] in November 2020. She denies current fever, chill, nausea, vomiting. She denies delays in wound care and has been applying saline wet-to-dry to help with home health. She relates her bone biopsy that was obtained during her foot surgery was negative for osteomyelitis. She has a PICC placed and saw infectious disease specialist, Dr. Paez at [facility]. She relates she is almost complete with her IV antibiotic course. She is offloading with a surgical shoe. She takes nutritional supplementation including vitamin D and B. She denies claudication. She does have rest paresthesias. She is diabetic with an A1c of over 8%. She also has history of back injuries. Since her last visit, she reports she had thick fluid squirting out of the wound with application of her silver dressing. She was concerned it was infected and called in yesterday. She is advised by nursing staff to go to the emergency room if she thought she had a rapid onset infection. She relates she is scheduled to see her surgeon tomorrow. She did not obtain the previously ordered labs and foot x-rays. She denies current redness or odor. Medical records reviewed from and it is noted she had right foot incision and drainage of fifth metatarsal on 12-04-20. Her surgeon was Dr. Blanchard. She is advised wearing AFO brace. It is noted she started on Bactrim and then after the surgery she was placed on IV antibiotics. She later developed an infection of her right foot ulceration and underwent I&D with wide debridement on 05-23-21 and 05-28-[address] Alexandre and Dr. Gonzalez. Cultures were positive for MRSA and Enterococcus and was placed on IV Vancomycin by infectious disease. She was discharged to a half-way facility with instructions for wound vac application to right anterior leg and lateral right foot and wet to dry Dakin's dressings to the right foot. Allergies: Clindamycin Medications cyclo-Benzapril, NuvaRing, Advil, Cytomel, Only, armodafinil, Singulair, Synthroid, Lyrica Past medical history: diabetes and history of back surgery, ankle surgery, right knee arthroscopy Social history: former smoker and no current tobacco use; quit in 1981 Subjective Subjective This is a 56-year-old female who presents to the wound care center for follow-up of a right anterior lower extremity wound.? She states she is doing well and receiving IV antibiotics via PICC line. She denies any pain to the right lower extremity or foot.? She denies any constitutional symptoms currently.? She has no further complaints today. Objective Data Objective Data Vital Signs: Vital Signs Temp Pulse Resp BP 97.8 F 119 H 18 108/69 12/18/21 11:00 12/18/21 11:00 11/21/21 00:22 12/18/21 11:00 Weight: 80.286 kg Body Mass Index (BMI) 26.9 Physical Exam Const alert, oriented x3 and no apparent distress General Appearance: cooperative and comfortable HEENT normocephalic Eyes General Eye: normal appearance of both eyes Neck General: normal visual inspection Lymph Lymphatic: no lymphadenopathy noted and no lymphedema noted Resp normal respiratory effort Cardio regular rate and regular rhythm Extremity normal capillary refill, no joint enlargement, no calf tenderness and no pedal edema Skin no rashes or lesions noted, skin turgor normal and no jaundice General Skin Exam: Negative for erythema Wound Narrative: Ulceration site to the right anterior lower extremity. Right lateral foot and medial foot cicatrix noted. Surrounding skin is intact, supple, and atrophic. Ulcerative site is secondary to a previous surgical debridement of an abscess of the foot and anterior compartment of the lower extremity. Ulcerative site demonstrates no erythema, purulent drainage, malodor, or other localized signs of infection. Neuro oriented x3 and moves all extremities Debridement Note Debridement Note Wound debrided: Right lower extremity Laterality: Right Wound Grade/Stage: Gonzalez stage III Type of Debridement: Excisional debridement Anesthesia Used: 5% Lidocaine Gel Depth: Down to and including healthy tissue and in the subcutaneous layer Percentage of wound debrided: 100 Instrument Used: 3mm curette Tissue Removed: Fibrous, devitalized subcutaneous, biofilm, slough Severity: Fat Layer Exposed Amount of bleeding with debridement: Mild Bleeding Controlled with: Compression and gauze Patient tolerated procedure: Patient tolerated procedure well Post-Debridement Measurements and Additional Note: Post-Debridement Measurements/Treatment ALISSA - Nurse 1 - General Ulcer Assessment Start: 11/27/21 12:27 Freq: Status: Active Protocol: WC.LOWEXT Activity Type Activity Date Activity User E-sign Co-sign Detail Recorded Client Recorded Date Recorded By Document 11/27/21 12:38 KR [id number] 11/27/21 12:40 KR Document 12/11/21 11:07 KR [id number] 12/11/21 11:13 KR Document 12/18/21 11:00 KR [id number] 12/18/21 11:03 KR 11/27/21 12/11/21 12/18/21 12:38 11:07 11:00 WC - Today's Visit Information Type of service Follow-up Visit Follow-up Visit Follow-up Visit (Physician/FOREST FIRE FIGHTER (Physician/FOREST FIRE FIGHTER (Physician/FOREST FIRE FIGHTER ) ) ) Arrival Mode Ambulatory Ambulatory Ambulatory Patient Identification Verified (Name & Yes Yes Yes ) Height and Weight Body Mass Index (BMI) 26.9 26.9 26.9 BMI Classification Overweight Overweight Overweight Vital Signs Temperature (97.8 F-99.1 F) 97.0 F L 96.7 F L 97.8 F Temperature Source Temporal Temporal Temporal Pulse Rate (60-100) 115 H 88 119 H Pulse Location Monitor Monitor Monitor Blood Pressure (90/60-120/80) 98/55 L 120/75 108/69 Blood Pressure Mean (mm Hg) 69 90 82 Source Monitor Monitor Monitor Position Semi-Fowlers Semi-Fowlers Semi-Fowlers Blood Pressure Location Right Arm Right Arm Left Arm History Since Last Visit- (Skip if this is Patient's initial visit) Have you changed medications since your No No No last visit? Any new allergies or adverse reactions No No No Had a fall/change in ADL's that may No No No increase risk of falls Signs or symptoms of abuse and/or No No No neglect since last visit Have you been in the hospital since your No No No last visit? Has dressing in place as prescribed Yes Yes Yes Has compression in place as prescribed Yes N/A N/A Has offloadiing in place as prescribed N/A N/A N/A Experienced any changes in pain level or No No No management Left Footwear Regular Shoe Regular Shoe Regular Shoe Right Footwear Regular Shoe Regular Shoe Regular Shoe Pain Scale: 0-10 Numeric Is Patient Pain Free? Yes Yes Yes WC - Nurse 1 - General Ulcer Measurement Start: 11/27/21 12:27 Freq: Status: Active Protocol: Activity Type Activity Date Activity User E-sign Co-sign Detail Recorded Client Recorded Date Recorded By Document 11/27/21 12:38 KR [id number] 11/27/21 12:40 KR Document 12/11/21 11:07 KR [id number] 12/11/21 11:13 KR Document 12/18/21 11:00 KR [id number] 12/18/21 11:03 KR 11/27/21 12/11/21 12/18/21 12:38 11:07 11:00 Wound Center Nurse 1 #2 R MID LOWER LEG -Current Size (cm) - Length 1.6 0.9 0.7 -Current Size (cm) - Width 1.2 0.6 0.3 -Current Size (cm) - Depth 0.1 0.1 0.1 -Total Square Cm 1.92 0.54 0.21 -Exudate Amt Small Small Small -Exudate Type Serosanguineous Serosanguineous Serosanguineous -Wound Margin Distinct, Distinct, Distinct, Outline Outline Outline Attached Attached Attached -Granulation Amt Small (1-33%) Small (1-33%) Small (1-33%) -Granulation Quality [place] -Necrosis Amt None Present (0 Small (1-33%) Small (1-33%) %) -Necrotic Tissue Type Adherent Slough Adherent Slough -Texture (Marie-wound Skin Appearance) Assessed, Assessed, Assessed, Scarring Scarring Scarring -Moisture (Marie-wound Skin Appearance) No Abnormality, No Abnormality, No Abnormality, Assessed Assessed Assessed -Color (Marie-wound Skin Appearance) No Abnormality, No Abnormality, No Abnormality, Assessed Assessed Assessed -Temperature (Marie-wound Skin No Abnormality No Abnormality No Abnormality Appearance) (Pt Warm) (Pt Warm) (Pt Warm) -Tenderness on Palpation (Marie-wound No No No Skin Appearance) -Ulcer Cleansing Rinsed/ Rinsed/ Rinsed/ Irrigated with Irrigated with Irrigated with Saline Saline Saline -Foul Odor after Cleansing No No No -Anesthetic Used 4% Lidocaine 5% Lidocaine 5% Lidocaine Solution Gel Gel WC - Nurse 2 - General Ulcer CM Notes Start: 11/27/21 12:27 Freq: Status: Active Protocol: Activity Type Activity Date Activity User E-sign Co-sign Detail Recorded Client Recorded Date Recorded By Document 11/27/21 12:28 PL [id number] 11/27/21 12:29 PL Document 12/04/21 13:02 PL [id number] 12/04/21 13:03 PL Document 12/11/21 13:08 PL [id number] 12/11/21 13:09 PL Document 12/18/21 13:12 PL [id number] 12/18/21 13:14 PL 11/27/21 12/04/21 12/11/21 12:28 13:02 13:08 Wound Center Nurse 2 #2 R MID LOWER LEG -Time 11:42 12:00 12:00 -Correct Patient Yes Yes Yes -Correct Side, Site, Position Yes Yes Yes -Correct Procedure Yes Yes Yes -Procedure Performed Yes Yes Yes -Type of Procedure Debridement Debridement Debridement -Clinical Debridement Subcutaneous Subcutaneous Subcutaneous -Tissue Removed Subcutaneous Subcutaneous Subcutaneous -Post Debridement (cm) - Length 1.5 1.0 0.9 -Post Debridement (cm) - Width 1.5 1.0 0.5 -Post Debridement (cm) - Depth 0.1 0.1 0.1 -Total Square (Post) (cm) 2.25 1.00 0.45 -Area of Debridement (cm) - Length 1.5 1.0 0.9 -Area of Debridement (cm) - Width 1.5 1.0 0.5 -Total Square (Area) (cm) 2.25 1.00 0.45 -Tunneling No No No -Undermining/Tunneling No No No -Circular Undermining No No No -Wound/Ulcer Outcome Not Healed Not Healed Not Healed -Ulcer Cleansing Rinsed/ Rinsed/ Not Cleansed Irrigated with Irrigated with Saline Saline -Foul Odor after Cleansing No No No -Bioengineered Tissue No No No -Bleeding Controlled with Pressure Pressure Pressure -Treatment Response Procedure Procedure Procedure Tolerated Well Tolerated Well Tolerated Well -Debridement - Subq, 1st 20sq cm Yes Yes Yes Pain Scale: 0-10 Numeric Is Patient Pain Free? Yes Yes Yes 12/18/21 13:12 Wound Center Nurse 2 #2 R MID LOWER LEG -Time 11:27 -Correct Patient Yes -Correct Side, Site, Position Yes -Correct Procedure Yes -Procedure Performed Yes -Type of Procedure Debridement -Clinical Debridement Subcutaneous -Tissue Removed Subcutaneous -Post Debridement (cm) - Length 0.6 -Post Debridement (cm) - Width 0.6 -Post Debridement (cm) - Depth 0.1 -Total Square (Post) (cm) 0.36 -Area of Debridement (cm) - Length 0.6 -Area of Debridement (cm) - Width 0.6 -Total Square (Area) (cm) 0.36 -Tunneling No -Undermining/Tunneling No -Circular Undermining No -Wound/Ulcer Outcome Not Healed -Ulcer Cleansing Rinsed/ Irrigated with Saline -Foul Odor after Cleansing No -Bioengineered Tissue No -Bleeding Controlled with Pressure -Treatment Response Procedure Tolerated Well -Debridement - Subq, 1st 20sq cm Yes Pain Scale: 0-10 Numeric Is Patient Pain Free? Yes - Nurse 3 - General Ulcer D/C NN Start: 11/27/21 12:27 Freq: Status: Active Protocol: Activity Type Activity Date Activity User E-sign Co-sign Detail Recorded Client Recorded Date Recorded By Document 12/11/21 12:09 [id number] 12/11/21 12:10 KR Document 12/18/21 11:36 [id number] 12/18/21 11:36 12/11/21 12/18/21 12:09 11:36 Wound Care Nurse 3 #2 R MID LOWER LEG -Ulcer Cleansing Rinsed/ Rinsed/ Irrigated with Irrigated with Saline Saline -Primary Dressing Applied C Hydrogel ($), Promogran Promogran Cherelle Matter Cherelle Matter -Primary Dressing Covered/Secured with Dry Gauze,Dry Dry Gauze,Dry Gauze & Roll Gauze & Roll Gauze,Secured Gauze,Secured with Tape with Tape -Promogran Cherelle Matter 1 1 Pain Scale: 0-10 Numeric Is Patient Pain Free? Yes Yes - Visit Discharge Discharge Condition Stable Stable Ambulatory Status Ambulatory Ambulatory Transportation Private Auto Private Auto Assessment/Plan Assessment/Plan (1) Non-pressure 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: CODE(S): L97.212 - Non-pressure 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 (2) Type 2 diabetes mellitus with foot ulcer: CODE(S): E11.621 - Type 2 diabetes mellitus with foot ulcer; L97.509 - Non-pressure chronic ulcer of other part of unspecified foot with unspecified severity QUALIFIERS: Diabetes mellitus skilled nursing insulin use: with skilled nursing use Qualified Code(s): E11.621 - Type 2 diabetes mellitus with foot ulcer; L97.509 - Non-pressure chronic ulcer of other part of unspecified foot with unspecified severity; Z79.4 - buttermaker helper (current) use of insulin (3) Diabetes mellitus with diabetic polyneuropathy: CODE(S): E11.42 - Type 2 diabetes mellitus with diabetic polyneuropathy QUALIFIERS: Diabetes mellitus type: type 2 Diabetes mellitus skilled nursing insulin use: without skilled nursing use Qualified Code(s): E11.42 - Type 2 diabetes mellitus with diabetic polyneuropathy (4) 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: CODE(S): L97.512 - 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 (5) Charcot's joint of right foot: CODE(S): M14.671 - Charcot's joint, right ankle and foot (6) Hypothyroidism: CODE(S): E03.9 - Hypothyroidism, unspecified QUALIFIERS: Hypothyroidism type: unspecified Qualified Code(s): E03.9 - Hypothyroidism, unspecified PLAN: Plan This is a 55-year-old female with history of wide I&D and deep debridement of the right foot and ankle from 05/23/2021 and 05/28/[address] Alexand[address] and Dr. Gonzalez, podiatric specialist.? She has history of MRSA infection.? Her wounds are complicated by diabetes mellitus type 2 with peripheral polyneuropathy, Charcot joint deformity of the right foot, hypothyroidism. Her right lower extremity anterior wound is a Gonzalez grade 3 at her right lateral foot wound is a Gonzalez grade 3, right medial foot wound Gonzalez grade 3.? She underwent a surgical debridement of all 3 of these Gonzalez grade 3 wounds to the right lower extremity on 05/23/2021 to drain a deep abscess and debride necrotic tissue and tendon.? She underwent a second debridement procedure on 05/28/2021 to drain deep anterior compartment abscess of the right lower extremity.? She had undergone and completed 8 weeks of IV Daptomycin and her PICC line was pulled on 07/09/2021.? Patient seen and evaluated. She currently has PICC line placed and receiving IV antibiotics, Cubicin, to treat MRSA bacteremia. Upon completion of her 6 weeks of IV antibiotic she will follow with a course of oral antibiotics per ID. The right anterior lower extremity wound is continuing to progress with continued new skin coverage. There is no erythema, malodor, purulent drainage, fluctuance or palpable bogginess, or other localized signs of infection. Wound underwent debridement as noted in clinical panel above today. Wound measures 0.6 cm x 0.6 cm x 0.1 cm.? The surrounding skin is intact and atrophic. This wound is continuing with good progression towards full closure.?Wound site dressed with Cherelle and dry sterile dressing. Right lateral foot wound remains healed. The medial right foot wound remains healed with a stable cicatrix. She may continue to ambulate cam walker/offloading boot.?She is going to physical therapy to rebuild strength as she has lost a considerable amount of muscle bulk due to her nonweightbearing status.?This will allow her to regain strength, balance, and coordination as she continues to ambulate. We will look to obtaining an AFO(Adduplex brace versus GetMyRx brace) to be worn with her shoe gear for continued support and offloading of the right foot as she returns to shoe gear. She continues to make good progress in her healing status and is very pleased with her treatment progress. I discussed with her to continue to ensure proper diabetic glycemic control and intake of protein to ensure wound healing The following work up and care recommendations were made: Dressing: Cherelle and DSD Wash: Soap and Water, pat area dry Tissue growth optimization: Cherelle Offload: Nonweightbearing right lower extremity with elevation via soft pillows Vascular: Edema: Elevate lower extremity at times of rest Infection: No localized signs of infection Pain: Continue with Motrin and Tylenol extra strength at home as needed Host factors: History of MRSA and Enterococcus infection.? Diabetes type 2 with peripheral polyneuropathy, discussed proper glycemic control and intake of protein to ensure wound healing. Radiographs: Radiographs from 11/06/21 demonstrate degenerative changes at the tarsometatarsal and naviculocuneiform joints secondary to Charcot deformity.? The site is stable with significant sclerosis of bone noted.? There are no plantar prominences noted.? She does have some decreased bone density to the distal tibia and a previous ORIF of the fibula.? Her plate and screws are intact with no signs of failure. MRI was performed on 11/25/2021 of the right lower extremity demonstrating chronic Charcot changes to the midfoot with no osteomyelitis seen. ? I answered all the patient's questions.? To return to the wound healing center in 1 week or call sooner if the patient has any questions or concerns. Note: The [employer] speech recognition water treatment plant operator software was used to create portions of this document. Sound-alike and misspelled words, as well as other water treatment plant operator errors may be contained in the documentation.
== END 2021-12-21 23:59 | disposition home or self-care (01) ==
LOC: WC 11:00
PROVIDERS: PCP Family Medicine; Visit Provider Student in an Organized Health Care Education/Training Program
DX: E11.621 Type 2 diabetes mellitus with foot ulcer (principal); L97.512 Non-pressure chronic 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; L97.212 Non-pressure 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; E11.610 Type 2 diabetes mellitus with diabetic neuropathic arthropathy; E11.42 Type 2 diabetes mellitus with diabetic polyneuropathy; Z79.4 Long term (current) use of insulin; E03.9 Hypothyroidism, unspecified; Z87.891 Personal history of nicotine dependence; Z79.890 Hormone replacement therapy; Z79.899 Other long term (current) drug therapy
CPT/HCPCS: 11042

== ENCOUNTER → 2021-12-22 | Outpatient (CLI) | payer MEDICAID, SELFPAY ==
[2021-12-22 13:24] LABS: Hemoglobin 11.5 g/dL (12.0-15.0); Mean Corp Hgb Conc 31.9 g/dL (32-36); Mean Corpuscular Hgb 29.8 pg (27.0-32.0); Mean Corpuscular Volume 93.3 fL (81-99); Mean Platelet Vol. 10.2 fl (6.2-12.0); Platelet Count 346 K/mm3 (150-450); RBC Distribution Width CV 13.6 % (11.6-14.6); RBC Distribution Width SD 46.4 fl (35.1-43.9); Red Blood Count 3.86 M/mm3 (4.2-5.4); White Blood Count 7.1 K/mm3 (4.4-11.0)
[2021-12-22 13:48] LABS: AST(SGOT) 13 U/L (15-37); Alanine Aminotransfer ALT/SGPT 20 U/L (13-56); Albumin, Serum 3.4 g/dL (3.2-5.0); Alkaline Phosphatase 160 U/L (45-117); Anion Gap 9 (5-15); BUN 18 mg/dL (7-18); BUN/Creat Ratio 25.8 RATIO (10-20); CPK Total, Creatine Kinase 74 U/L (26-192); Calcium,Total 8.9 mg/dL (8.5-10.1); Chloride 105 mmol/L (98-107); EST Glomerular Filtration Rate 92 mL/min (>60); Est Glom Filt Rate - Afr Amer 111 mL/min (>60); Globulin 3.5 g/dL (2.2-4.2); Glucose 136 mg/dL (74-106); Potassium 4.6 mmol/L (3.5-5.1); Protein, Total 6.9 g/dL (6.4-8.2); Sodium Level 140 mmol/L (136-145)
== END | disposition home or self-care (01) ==
PROVIDERS: PCP Family Medicine; Visit Provider Internal Medicine Infectious Disease
DX: L03.115 Cellulitis of right lower limb (principal)
CPT/HCPCS: 80053; 82550; 85027

== ENCOUNTER → 2021-12-29 | Outpatient (CLI) | payer MEDICAID, SELFPAY ==
[2021-12-29 14:28] LABS: Hematocrit 38.1 % (37-47); Hemoglobin 12.2 g/dL (12.0-15.0); Mean Corpuscular Hgb 29.8 pg (27.0-32.0); Mean Corpuscular Volume 92.9 fL (81-99); Platelet Count 373 K/mm3 (150-450); RBC Distribution Width CV 13.2 % (11.6-14.6); White Blood Count 7.9 K/mm3 (4.4-11.0)
[2021-12-29 14:40] LABS: ALB/GLOB Ratio 1.1 RATIO (0.9-2.4); AST(SGOT) 14 U/L (15-37); Alanine Aminotransfer ALT/SGPT 16 U/L (13-56); Albumin, Serum 3.7 g/dL (3.2-5.0); Alkaline Phosphatase 150 U/L (45-117); Anion Gap 8 (5-15); BUN 24 mg/dL (7-18); BUN/Creat Ratio 27.6 RATIO (10-20); CPK Total, Creatine Kinase 54 U/L (26-192); Calcium,Total 9.5 mg/dL (8.5-10.1); Chloride 108 mmol/L (98-107); Creatinine, Serum 0.87 mg/dL (0.55-1.02); EST Glomerular Filtration Rate 71 mL/min (>60); Est Glom Filt Rate - Afr Amer 86 mL/min (>60); Globulin 3.4 g/dL (2.2-4.2); Glucose 127 mg/dL (74-106); Potassium 4.6 mmol/L (3.5-5.1); Protein, Total 7.1 g/dL (6.4-8.2); Sodium Level 140 mmol/L (136-145)
== END | disposition home or self-care (01) ==
LOC: LABSPEC 14:05
PROVIDERS: PCP Family Medicine; Visit Provider Internal Medicine Infectious Disease
DX: L03.115 Cellulitis of right lower limb (principal)
CPT/HCPCS: 80053; 82550; 85027

== ENCOUNTER → 2022-01-05 | Outpatient (CLI) | payer MEDICAID, SELFPAY ==
[2022-01-05 11:15] LABS: Hematocrit 37.7 % (37-47); Hemoglobin 12.3 g/dL (12.0-15.0); Mean Corp Hgb Conc 32.6 g/dL (32-36); Mean Corpuscular Hgb 30.1 pg (27.0-32.0); Mean Corpuscular Volume 92.4 fL (81-99); Platelet Count 331 K/mm3 (150-450); RBC Distribution Width CV 13.1 % (11.6-14.6); RBC Distribution Width SD 43.9 fl (35.1-43.9); Red Blood Count 4.08 M/mm3 (4.2-5.4); White Blood Count 8.9 K/mm3 (4.4-11.0)
[2022-01-05 11:32] LABS: AST(SGOT) 13 U/L (15-37); Alanine Aminotransfer ALT/SGPT 19 U/L (13-56); Albumin, Serum 3.5 g/dL (3.2-5.0); Alkaline Phosphatase 144 U/L (45-117); Anion Gap 8 (5-15); BUN 24 mg/dL (7-18); BUN/Creat Ratio 27.1 RATIO (10-20); CPK Total, Creatine Kinase 62 U/L (26-192); Calcium,Total 9.4 mg/dL (8.5-10.1); Chloride 108 mmol/L (98-107); Creatinine, Serum 0.89 mg/dL (0.55-1.02); EST Glomerular Filtration Rate 70 mL/min (>60); Est Glom Filt Rate - Afr Amer 85 mL/min (>60); Globulin 3.4 g/dL (2.2-4.2); Glucose 144 mg/dL (74-106); Potassium 4.5 mmol/L (3.5-5.1); Protein, Total 6.9 g/dL (6.4-8.2); Sodium Level 141 mmol/L (136-145)
== END | disposition home or self-care (01) ==
PROVIDERS: PCP Family Medicine; Visit Provider Internal Medicine Infectious Disease
DX: L03.115 Cellulitis of right lower limb (principal); R78.81 Bacteremia; D64.9 Anemia, unspecified; B95.62 Methicillin resistant Staphylococcus aureus infection as the cause of diseases classified elsewhere
CPT/HCPCS: 80053; 82550; 85027

== ENCOUNTER 2022-01-08 10:45 | Outpatient (RCR) | payer MEDICAID, SELFPAY ==
[2021-12-22 00:18] VITALS: BP 108/69; PULSE 119; RESP 18; TEMP 36.6; BMI 26.9
[2021-12-25 11:08] VITALS: BP 115/73; PULSE 77; TEMP 36.6; BMI 26.9
--- NOTE | 2021-12-25 14:19 | PN.PCM_ITS ---
History of Present Illness Date of Service: 12/25/21 Chief Complaint: right foot ulcer and Right Leg wound History of Wound: This 55-year-old female presents for care of right foot wound. She had surgery at [facility] in November 2020. She denies current fever, chill, nausea, vomiting. She denies delays in wound care and has been applying saline wet-to-dry to help with home health. She relates her bone biopsy that was obtained during her foot surgery was negative for osteomyelitis. She has a PICC placed and saw infectious disease specialist, Dr. Paez at [facility]. She relates she is almost complete with her IV antibiotic course. She is offloading with a surgical shoe. She takes nutritional supplementation including vitamin D and B. She denies claudication. She does have rest paresthesias. She is diabetic with an A1c of over 8%. She also has history of back injuries. Since her last visit, she reports she had thick fluid squirting out of the wound with application of her silver dressing. She was concerned it was infected and called in yesterday. She is advised by nursing staff to go to the emergency room if she thought she had a rapid onset infection. She relates she is scheduled to see her surgeon tomorrow. She did not obtain the previously ordered labs and foot x-rays. She denies current redness or odor. Medical records reviewed from and it is noted she had right foot incision and drainage of fifth metatarsal on 12-04-20. Her surgeon was Dr. Blanchard. She is advised wearing AFO brace. It is noted she started on Bactrim and then after the surgery she was placed on IV antibiotics. She later developed an infection of her right foot ulceration and underwent I&D with wide debridement on 05-23-21 and 05-28-[address] Alexandre and Dr. Gonzalez. Cultures were positive for MRSA and Enterococcus and was placed on IV Vancomycin by infectious disease. She was discharged to a fdc facility with instructions for wound vac application to right anterior leg and lateral right foot and wet to dry Dakin's dressings to the right foot. Allergies: Clindamycin Medications cyclo-Benzapril, NuvaRing, Advil, Cytomel, Simonton, armodafinil, Singulair, Synthroid, Lyrica Past medical history: diabetes and history of back surgery, ankle surgery, right knee arthroscopy Social history: former smoker and no current tobacco use; quit in 1981 Subjective Subjective This is a 56-year-old female who presents to the wound care center for follow-up of a right anterior lower extremity wound.? She states she is doing well and receiving IV antibiotics via PICC line. She denies any pain to the right lower extremity or foot. She states that her wound is almost closed. She denies any constitutional symptoms currently.? She has no further complaints today. Objective Data Objective Data Vital Signs: Vital Signs Temp Pulse Resp BP 97.9 F 77 18 115/73 12/25/21 11:08 12/25/21 11:08 12/22/21 00:18 12/25/21 11:08 Weight: 80.286 kg Body Mass Index (BMI) 26.9 Physical Exam Const alert, oriented x3 and no apparent distress General Appearance: cooperative and comfortable HEENT normocephalic Eyes General Eye: normal appearance of both eyes Neck General: normal visual inspection Lymph Lymphatic: no lymphadenopathy noted and no lymphedema noted Resp normal respiratory effort Cardio regular rate and regular rhythm Extremity normal capillary refill, no joint enlargement, no calf tenderness and no pedal edema Skin no rashes or lesions noted, skin turgor normal and no jaundice General Skin Exam: Negative for erythema Wound Narrative: Ulceration site to the right anterior lower extremity.? Right lateral foot and medial foot cicatrix noted.? Surrounding skin is intact, supple, and atrophic.? Ulcerative site is secondary to a previous surgical debridement of an abscess of the foot and anterior compartment of the lower extremity.? Ulcerative site demonstrates no erythema, purulent drainage, malodor, or other localized signs of infection. Neuro oriented x3 and moves all extremities Debridement Note Debridement Note Wound debrided: Right lower extremity Laterality: Right Wound Grade/Stage: Gonzalez stage III Type of Debridement: Excisional debridement Anesthesia Used: 5% Lidocaine Gel Depth: Down to and including healthy tissue and in the subcutaneous layer Percentage of wound debrided: 100 Instrument Used: 3mm curette Tissue Removed: Fibrous, devitalized subcutaneous, biofilm, slough Severity: Fat Layer Exposed Amount of bleeding with debridement: Mild Bleeding Controlled with: Compression and gauze Patient tolerated procedure: Patient tolerated procedure well Post-Debridement Measurements and Additional Note: Post-Debridement Measurements/Treatment WC - Nurse 1 - General Ulcer Assessment Start: 12/25/21 11:08 Freq: Status: Active Protocol: ESTEFANIAEXKati Activity Type Activity Date Activity User E-sign Co-sign Detail Recorded Client Recorded Date Recorded By Document 12/25/21 11:08 LAYLA [id number] 12/25/21 11:09 LAYLA 12/25/21 11:08 - Today's Visit Information Type of service 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 Any new allergies or adverse reactions No Had a fall/change in ADL's that may No increase risk of falls Signs or symptoms of abuse and/or No neglect since last visit Have you been in the hospital since your No last visit? Has dressing in place as prescribed Yes Has compression in place as prescribed N/A Has offloadiing in place as prescribed N/A Experienced any changes in pain level or No management Left Footwear Regular Shoe Right Footwear Regular Shoe Pain Scale: 0-10 Numeric Is Patient Pain Free? Yes - Nurse 1 - General Ulcer Measurement Start: 12/25/21 11:08 Freq: Status: Active Protocol: Activity Type Activity Date Activity User E-sign Co-sign Detail Recorded Client Recorded Date Recorded By Document 12/25/21 11:08 LAYLA [id number] 12/25/21 11:09 LAYLA 12/25/21 11:08 Wound Center Nurse 1 #2 R MID LOWER LEG -Current Size (cm) - Length 0.2 -Current Size (cm) - Width 0.2 -Current Size (cm) - Depth 0.1 -Total Square Cm 0.04 -Exudate Amt Small -Exudate Type Serosanguineous -Wound Margin Distinct, Outline Attached -Granulation Amt Small (1-33%) -Granulation Quality Poplar -Necrosis Amt Small (1-33%) -Necrotic Tissue Type Adherent Slough -Texture (Marie-wound Skin Appearance) Assessed, Scarring -Moisture (Marie-wound Skin Appearance) No Abnormality, Assessed -Color (Marie-wound Skin Appearance) No Abnormality, Assessed -Temperature (Marie-wound Skin No Abnormality Appearance) (Pt Warm) -Tenderness on Palpation (Marie-wound No Skin Appearance) -Ulcer Cleansing Rinsed/ Irrigated with Saline -Foul Odor after Cleansing No -Anesthetic Used 5% Lidocaine Gel WC - Nurse 2 - General Ulcer CM Notes Start: 12/25/21 11:08 Freq: Status: Active Protocol: Activity Type Activity Date Activity User E-sign Co-sign Detail Recorded Client Recorded Date Recorded By Document 12/25/21 12:27 PL [id number] 12/25/21 12:28 PL 12/25/21 12:27 Wound Center Nurse 2 -Time 11:40 -Correct Patient Yes -Correct Side, Site, Position Yes -Correct Procedure Yes -Procedure Performed Yes -Type of Procedure Debridement -Clinical Debridement Subcutaneous -Tissue Removed Subcutaneous -Post Debridement (cm) - Length 0.3 -Post Debridement (cm) - Width 0.2 -Post Debridement (cm) - Depth 0.1 -Total Square (Post) (cm) 0.06 -Area of Debridement (cm) - Length 0.3 -Area of Debridement (cm) - Width 0.2 -Total Square (Area) (cm) 0.06 -Tunneling No -Undermining/Tunneling No -Circular Undermining No -Wound/Ulcer Outcome Not Healed -Ulcer Cleansing Rinsed/ Irrigated with Saline -Foul Odor after Cleansing No -Bioengineered Tissue No -Bleeding Controlled with Pressure -Treatment Response Procedure Tolerated Well -Debridement - Subq, 1st 20sq cm Yes Pain Scale: 0-10 Numeric Is Patient Pain Free? Yes - Nurse 3 - General Ulcer D/C NN Start: 12/25/21 11:08 Freq: Status: Active Protocol: Activity Type Activity Date Activity User E-sign Co-sign Detail Recorded Client Recorded Date Recorded By Document 12/25/21 11:55 LAYLA [id number] 12/25/21 11:55 LAYLA 12/25/21 11:55 Wound Care Nurse 3 #2 R MID LOWER LEG -Primary Dressing Applied Promogran Cherelle Matter -Primary Dressing Covered/Secured with Dry Gauze,Dry Gauze & Roll Gauze,Secured with Tape -Promogran Cherelle Matter 1 Pain Scale: 0-10 Numeric Is Patient Pain Free? Yes WC - Visit Discharge Discharge Condition Stable Ambulatory Status Ambulatory Transportation Private Auto Assessment/Plan Assessment/Plan (1) Type 2 diabetes mellitus with foot ulcer: CODE(S): E11.621 - Type 2 diabetes mellitus with foot ulcer; L97.509 - Non-pressure chronic ulcer of other part of unspecified foot with unspecified severity (2) Charcot's joint of right foot: CODE(S): M14.671 - Charcot's joint, right ankle and foot (3) 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: CODE(S): L97.512 - 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 (4) Type 2 diabetes mellitus with diabetic polyneuropathy: CODE(S): E11.42 - Type 2 diabetes mellitus with diabetic polyneuropathy QUALIFIERS: Diabetes mellitus intermediate school teacher insulin use: with skilled nursing use Qualified Code(s): E11.42 - Type 2 diabetes mellitus with diabetic polyneuropathy; Z79.4 - detention (current) use of insulin (5) Non-pressure 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: CODE(S): L97.212 - Non-pressure 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 PLAN: Plan This is a 56-year-old female with history of wide I&D and deep debridement of the right foot and ankle from 05/23/2021 and 05/28/[address] Alexand[address] and Dr. Gonzalez, podiatric specialist.? She has history of MRSA infection.? Her wounds are complicated by diabetes mellitus type 2 with peripheral polyneuropathy, Charcot joint deformity of the right foot, hypothyroidism. Her right lower extremity anterior wound is a Gonzalez grade 3 at her right lateral foot wound is a Gonzalez grade 3, right medial foot wound Gonzalez grade 3.? She underwent a surgical debridement of all 3 of these Gonzalez grade 3 wounds to the right lower extremity on 05/23/2021 to drain a deep abscess and debride necrotic tissue and tendon.? She underwent a second debridement procedure on 05/28/2021 to drain deep anterior compartment abscess of the right lower extremity.? She had undergone and completed 8 weeks of IV Daptomycin and her PICC line was pulled on 07/09/2021.? Patient seen and evaluated. She currently has PICC line placed and receiving IV antibiotics, Cubicin, to treat MRSA bacteremia.? Upon completion of her 6 weeks of IV antibiotic she will follow with a course of oral antibiotics per ID. The right anterior lower extremity wound is continuing to progress with continued new skin coverage.? There is no erythema, malodor, purulent drainage, fluctuance or palpable bogginess, or other localized signs of infection.? Wound underwent debridement as noted in clinical panel above today. Wound measures 0.2 cm x 0.2 cm x 0.1 cm.? The surrounding skin is intact and atrophic. This wound is continuing with good progression towards full closure.?Wound site dressed with Cherelle and dry sterile dressing. Right lateral foot wound remains healed. The medial right foot wound remains healed with a stable cicatrix. She may continue to ambulate cam walker/offloading boot.?She is going to physical therapy to rebuild strength as she has lost a considerable amount of muscle bulk due to her nonweightbearing status.?This will allow her to regain strength, balance, and coordination as she continues to ambulate.? We will look to obtaining an AFO (Fracisco brace) to be worn with her shoe gear for continued support and offloading of the right foot as she returns to shoe gear. She continues to make good progress in her healing status and is very pleased with her treatment progress. I discussed with her to continue to ensure proper diabetic glycemic control and intake of protein to ensure wound healing The following work up and care recommendations were made: Dressing: Cherelle and DSD Wash: Soap and Water, pat area dry Tissue growth optimization: Cherelle Offload: Nonweightbearing right lower extremity with elevation via soft pillows Vascular: Edema: Elevate lower extremity at times of rest Infection: No localized signs of infection Pain: Continue with Motrin and Tylenol extra strength at home as needed Host factors: History of MRSA and Enterococcus infection.? Diabetes type 2 with peripheral polyneuropathy, discussed proper glycemic control and intake of protein to ensure wound healing. Radiographs: Radiographs from 11/06/21 demonstrate degenerative changes at the tarsometatarsal and naviculocuneiform joints secondary to Charcot deformity.? The site is stable with significant sclerosis of bone noted.? There are no plantar prominences noted.? She does have some decreased bone density to the distal tibia and a previous ORIF of the fibula.? Her plate and screws are intact with no signs of failure. MRI was performed on 11/25/2021 of the right lower extremity demonstrating chronic Charcot changes to the midfoot with no osteomyelitis seen. ? I answered all the patient's questions.? To return to the wound healing center in 2 weeks or call sooner if the patient has any questions or concerns. Note: [employer] speech recognition volunteer patient representative software was used to create portions of this document. Sound-alike and misspelled words, as well as other volunteer patient representative errors may be contained in the documentation.
[2022-01-08 10:43] VITALS: BP 107/72; PULSE 71; TEMP 36.4; BMI 26.9
--- NOTE | 2022-01-08 15:01 | PCM.WC.PN ---
History of Present Illness Date of Service: 01/08/22 Chief Complaint: right foot ulcer and Right Leg wound History of Wound: This 55-year-old female presents for care of right foot wound. She had surgery at [facility] in November 2020. She denies current fever, chill, nausea, vomiting. She denies delays in wound care and has been applying saline wet-to-dry to help with home health. She relates her bone biopsy that was obtained during her foot surgery was negative for osteomyelitis. She has a PICC placed and saw infectious disease specialist, Dr. Paez at [facility]. She relates she is almost complete with her IV antibiotic course. She is offloading with a surgical shoe. She takes nutritional supplementation including vitamin D and B. She denies claudication. She does have rest paresthesias. She is diabetic with an A1c of over 8%. She also has history of back injuries. Since her last visit, she reports she had thick fluid squirting out of the wound with application of her silver dressing. She was concerned it was infected and called in yesterday. She is advised by nursing staff to go to the emergency room if she thought she had a rapid onset infection. She relates she is scheduled to see her surgeon tomorrow. She did not obtain the previously ordered labs and foot x-rays. She denies current redness or odor. Medical records reviewed from and it is noted she had right foot incision and drainage of fifth metatarsal on 12-04-20. Her surgeon was Dr. Blanchard. She is advised wearing AFO brace. It is noted she started on Bactrim and then after the surgery she was placed on IV antibiotics. She later developed an infection of her right foot ulceration and underwent I&D with wide debridement on 05-23-21 and 05-28-[address] Alexandre and Dr. Gonzalez. Cultures were positive for MRSA and Enterococcus and was placed on IV Vancomycin by infectious disease. She was discharged to a senior care facility with instructions for wound vac application to right anterior leg and lateral right foot and wet to dry Dakin's dressings to the right foot. Allergies: Clindamycin Medications cyclo-Benzapril, NuvaRing, Advil, Cytomel, [place], armodafinil, Singulair, Synthroid, Lyrica Past medical history: diabetes and history of back surgery, ankle surgery, right knee arthroscopy Social history: former smoker and no current tobacco use; quit in 1981 Subjective Subjective This is a 56-year-old female who presents to the wound care center for follow-up of a right anterior lower extremity wound.? She states she is doing well and completed IV antibiotics via PICC line. She states PICC line was pulled. She denies any pain to the right lower extremity or foot.? She states that her wound is closed today.? She denies any constitutional symptoms currently.? She has no further complaints today. Objective Data Objective Data Vital Signs: Vital Signs Temp Pulse Resp BP 97.5 F L 71 18 107/72 01/08/22 10:43 01/08/22 10:43 12/22/21 00:18 01/08/22 10:43 Weight: 80.286 kg Body Mass Index (BMI) 26.9 Physical Exam Const alert, oriented x3 and no apparent distress General Appearance: cooperative and comfortable HEENT normocephalic Eyes General Eye: normal appearance of both eyes Neck General: normal visual inspection Lymph Lymphatic: no lymphadenopathy noted and no lymphedema noted Resp normal respiratory effort Cardio regular rate and regular rhythm Extremity normal capillary refill, no joint enlargement, no calf tenderness and no pedal edema Skin no rashes or lesions noted, skin turgor normal and no jaundice General Skin Exam: Negative for erythema Wound Narrative: Ulceration site to the right anterior lower extremity is healed, no local signs of infection.? Right lateral foot and medial foot cicatrix noted.? Surrounding skin is intact, supple, and atrophic.? Ulcerative site is secondary to a previous surgical debridement of an abscess of the foot and anterior compartment of the lower extremity. Neuro oriented x3 and moves all extremities Debridement Note Debridement Note No debridement was completed: No debridement was completed today Post-Debridement Measurements and Additional Note: Post-Debridement Measurements/Treatment ALISSA - Nurse 1 - General Ulcer Assessment Start: 12/25/21 11:08 Freq: Status: Active Protocol: RUKHSANA Activity Type Activity Date Activity User E-sign Co-sign Detail Recorded Client Recorded Date Recorded By Document 12/25/21 11:08 LAYLA [id number] 12/25/21 11:09 KR Document 01/08/22 10:43 LAYLA [id number] 01/08/22 10:45 LAYLA 12/25/21 01/08/22 11:08 10:43 - Today's Visit Information Type of service Follow-up Visit Follow-up Visit (Physician/SENIOR SOFTWARE DEVELOPMENT MANAGER (Physician/SENIOR SOFTWARE DEVELOPMENT MANAGER ) ) Arrival Mode Ambulatory Ambulatory Patient Identification Verified (Name & Yes Yes ) Height and Weight Body Mass Index (BMI) 26.9 26.9 BMI Classification Overweight Overweight Vital Signs Temperature (97.8 F-99.1 F) 97.9 F 97.5 F L Temperature Source Temporal Temporal Pulse Rate (60-100) 77 71 Pulse Location Monitor Monitor Blood Pressure (90/60-120/80) 115/73 107/72 Blood Pressure Mean (mm Hg) 87 83 Source Monitor Monitor Position Semi-Fowlers Sitting Blood Pressure Location Left Arm Right Arm History Since Last Visit- (Skip if this is Patient's initial visit) Have you changed medications since your No No last visit? Any new allergies or adverse reactions No No Had a fall/change in ADL's that may No No increase risk of falls Signs or symptoms of abuse and/or No No neglect since last visit Have you been in the hospital since your No No last visit? Has dressing in place as prescribed Yes Yes Has compression in place as prescribed N/A N/A Has offloadiing in place as prescribed N/A N/A Experienced any changes in pain level or No No management Left Footwear Regular Shoe Regular Shoe Right Footwear Regular Shoe Regular Shoe Pain Scale: 0-10 Numeric Is Patient Pain Free? Yes Yes - Nurse 1 - General Ulcer Measurement Start: 12/25/21 11:08 Freq: Status: Active Protocol: Activity Type Activity Date Activity User E-sign Co-sign Detail Recorded Client Recorded Date Recorded By Document 12/25/21 11:08 LAYLA [id number] 12/25/21 11:09 KR Document 01/08/22 10:43 LAYLA [id number] 01/08/22 10:45 KR 12/25/21 01/08/22 11:08 10:43 Wound Center Nurse 1 #2 R MID LOWER LEG -Current Size (cm) - Length 0.2 0.1 -Current Size (cm) - Width 0.2 0.1 -Current Size (cm) - Depth 0.1 0.1 -Total Square Cm 0.04 0.01 -Exudate Amt Small None Present -Exudate Type Serosanguineous -Wound Margin Distinct, Distinct, Outline Outline Attached Attached -Granulation Amt Small (1-33%) Small (1-33%) -Granulation Quality Labelle Labelle -Necrosis Amt Small (1-33%) None Present (0 %) -Necrotic Tissue Type Adherent Slough -Texture (Marie-wound Skin Appearance) Assessed, Assessed, Scarring Scarring -Moisture (Marie-wound Skin Appearance) No Abnormality, No Abnormality, Assessed Assessed -Color (Marie-wound Skin Appearance) No Abnormality, No Abnormality, Assessed Assessed -Temperature (Marie-wound Skin No Abnormality No Abnormality Appearance) (Pt Warm) (Pt Warm) -Tenderness on Palpation (Marie-wound No No Skin Appearance) -Ulcer Cleansing Rinsed/ Rinsed/ Irrigated with Irrigated with Saline Saline -Foul Odor after Cleansing No No -Anesthetic Used 5% Lidocaine 5% Lidocaine Gel Gel WC - Nurse 2 - General Ulcer CM Notes Start: 12/25/21 11:08 Freq: Status: Active Protocol: Activity Type Activity Date Activity User E-sign Co-sign Detail Recorded Client Recorded Date Recorded By Document 12/25/21 12:27 PL [id number] 12/25/21 12:28 PL Document 01/08/22 12:47 PL [id number] 01/08/22 12:48 PL 12/25/21 01/08/22 12:27 12:47 Wound Center Nurse 2 #2 R MID LOWER LEG -Time 11:40 11:27 -Correct Patient Yes -Correct Side, Site, Position Yes -Correct Procedure Yes -Procedure Performed Yes No -Type of Procedure Debridement -Clinical Debridement Subcutaneous -Tissue Removed Subcutaneous -Post Debridement (cm) - Length 0.3 -Post Debridement (cm) - Width 0.2 -Post Debridement (cm) - Depth 0.1 -Total Square (Post) (cm) 0.06 -Area of Debridement (cm) - Length 0.3 -Area of Debridement (cm) - Width 0.2 -Total Square (Area) (cm) 0.06 -Tunneling No -Undermining/Tunneling No -Circular Undermining No -Wound/Ulcer Outcome Not Healed Healed- Epithelialized -Ulcer Cleansing Rinsed/ Irrigated with Saline -Foul Odor after Cleansing No -Bioengineered Tissue No -Bleeding Controlled with Pressure -Treatment Response Procedure Tolerated Well -Debridement - Subq, 1st 20sq cm Yes Pain Scale: 0-10 Numeric Is Patient Pain Free? Yes Yes WC - Nurse 3 - General Ulcer D/C NN Start: 12/25/21 11:08 Freq: Status: Active Protocol: Activity Type Activity Date Activity User E-sign Co-sign Detail Recorded Client Recorded Date Recorded By Document 12/25/21 11:55 LAYLA [id number] 12/25/21 11:55 KR Document 01/08/22 14:36 KR [id number] 01/08/22 14:36 KR 12/25/21 01/08/22 11:55 14:36 Wound Care Nurse 3 #2 R MID LOWER LEG -Primary Dressing Applied Promogran Cherelle Matter -Primary Dressing Covered/Secured with Dry Gauze,Dry Gauze & Roll Gauze,Secured with Tape -Promogran Cherelle Matter 1 Pain Scale: 0-10 Numeric Is Patient Pain Free? Yes Yes WC - Visit Discharge Discharge Condition Stable Stable Ambulatory Status Ambulatory Ambulatory Transportation Private Auto Private Auto Assessment/Plan Assessment/Plan (1) Type 2 diabetes mellitus with foot ulcer: CODE(S): E11.621 - Type 2 diabetes mellitus with foot ulcer; L97.509 - Non-pressure chronic ulcer of other part of unspecified foot with unspecified severity (2) Charcot's joint of right foot: CODE(S): M14.671 - Charcot's joint, right ankle and foot (3) 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: CODE(S): L97.512 - 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 (4) Type 2 diabetes mellitus with diabetic polyneuropathy: CODE(S): E11.42 - Type 2 diabetes mellitus with diabetic polyneuropathy QUALIFIERS: Diabetes mellitus intermediate accountant insulin use: with intermediate accountant use Qualified Code(s): E11.42 - Type 2 diabetes mellitus with diabetic polyneuropathy; Z79.4 - halfway (current) use of insulin (5) Non-pressure 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: CODE(S): L97.212 - Non-pressure 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 PLAN: Plan This is a 56-year-old female with history of wide I&D and deep debridement of the right foot and ankle from 05/23/2021 and 05/28/[address] Alexand[address] and Dr. Gonzalez, podiatric specialist.? She has history of MRSA infection.? Her wounds are complicated by diabetes mellitus type 2 with peripheral polyneuropathy, Charcot joint deformity of the right foot, hypothyroidism. Her right lower extremity anterior wound is a Gonzalez grade 3 at her right lateral foot wound is a Gonzalez grade 3, right medial foot wound Gonzalez grade 3.? She underwent a surgical debridement of all 3 of these Gonzalez grade 3 wounds to the right lower extremity on 05/23/2021 to drain a deep abscess and debride necrotic tissue and tendon.? She underwent a second debridement procedure on 05/28/2021 to drain deep anterior compartment abscess of the right lower extremity.? She had undergone and completed 8 weeks of IV Daptomycin and her PICC line was pulled on 07/09/2021.? Patient seen and evaluated. Completed her course of IV antibiotics, Cubicin, to treat MRSA bacteremia and has had her PICC line removed.?She will follow with a course of oral antibiotics per ID. The right anterior lower extremity wound is healed today. There is no erythema, malodor, purulent drainage, fluctuance or palpable bogginess, or other localized signs of infection.?The surrounding skin is intact and atrophic. Right lateral foot wound remains healed. The medial right foot wound remains healed with a stable cicatrix. She may continue to ambulate cam walker/offloading boot.?She is going to physical therapy to rebuild strength as she has lost a considerable amount of muscle bulk due to her nonweightbearing status.?This will allow her to regain strength, balance, and coordination as she continues to ambulate.? She will make an appointment with the office for follow-up next week and we will look to obtaining an AFO (Fracisco brace) to be worn with her shoe gear for continued support and offloading of the right foot as she returns to shoe gear. She is very pleased with her healing and treatment progress. I discussed with her to continue to ensure proper diabetic glycemic control and intake of protein for overall health. I discussed that the skin site is still fragile and to watch bumping the site to prevent reopening. She may shower at this time without covering the site. The following work up and care recommendations were made: Wash: Soap and Water, pat area dry Offload: Cam boot to the right foot Vascular: Edema: Elevate lower extremity at times of rest Infection: No localized signs of infection Pain: Continue with Motrin and Tylenol extra strength at home as needed Host factors: History of MRSA and Enterococcus infection.? Diabetes type 2 with peripheral polyneuropathy, discussed proper glycemic control and intake of protein to ensure wound healing. Radiographs: Radiographs from 11/06/21 demonstrate degenerative changes at the tarsometatarsal and naviculocuneiform joints secondary to Charcot deformity.? The site is stable with significant sclerosis of bone noted.? There are no plantar prominences noted.? She does have some decreased bone density to the distal tibia and a previous ORIF of the fibula.? Her plate and screws are intact with no signs of failure. MRI was performed on 11/25/2021 of the right lower extremity demonstrating chronic Charcot changes to the midfoot with no osteomyelitis seen. ? I answered all the patient's questions.? She will be discharged from the wound care center today. She will follow-up in the office next week for casting of a Fracisoc brace. She may call sooner if she has any questions or concerns. Note: [employer] speech recognition private eye software was used to create portions of this document. Sound-alike and misspelled words, as well as other private eye errors may be contained in the documentation.
== END 2022-01-08 16:30 | disposition home or self-care (01) ==
LOC: WC 10:45
PROVIDERS: PCP Family Medicine; Visit Provider Student in an Organized Health Care Education/Training Program
DX: E11.621 Type 2 diabetes mellitus with foot ulcer (principal); L97.212 Non-pressure 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; E11.610 Type 2 diabetes mellitus with diabetic neuropathic arthropathy; E11.42 Type 2 diabetes mellitus with diabetic polyneuropathy; Z79.890 Hormone replacement therapy; Z79.899 Other long term (current) drug therapy; Z87.891 Personal history of nicotine dependence; Z86.14 Personal history of Methicillin resistant Staphylococcus aureus infection
CPT/HCPCS: 11042; 99213; G0463

== ENCOUNTER → 2022-03-26 | Outpatient (CLI) | payer MEDICAID, SELFPAY ==
[2022-03-26 14:43] LABS: Color, Urine Yellow (Yellow); Glucose, Dipstick Normal (Normal); Ketone-Dipstick Negative (Negative); Leukocyte Esterase-Dipstick 500 /ul (Negative); Nitrite-Dipstick Negative (Negative); Occult Blood-Urine Negative /ul (Negative); Protein-Dipstick Negative (Negative); Urine Bilirubin Dipstick Negative (Negative); Urine Clarity Sl. Cloudy (Clear); Urine Urobilinogen Normal (Normal)
== END | disposition home or self-care (01) ==
LOC: LABSPEC 14:20
PROVIDERS: PCP Family Medicine; Visit Provider Family Medicine
DX: N39.0 Urinary tract infection, site not specified (principal)
CPT/HCPCS: 81002; 87086; 87088

== ENCOUNTER 2022-10-16 12:38 | Day surgery (SDC) | payer MEDICAID, SELFPAY ==
[2022-10-16] VITALS (8 sets, daily range): BP systolic 114–130; BP diastolic 65–79; PULSE 73–102; RESP 16–18; TEMP 36.8–37.1; O2SAT 95–97; BMI 32.5
[2022-10-16] MEDS: Lactated Ringers 1,000 ML 15 ML IV (12:45)
--- NOTE | 2022-10-16 13:41 | PCM.DC ---
Discharge Instructions Diet Discharge Diet: No restrictions Activity Discharge Activity: May Shower (Utilize cast bag covering to keep dressings clean, dry, and intact to the right lower leg) Weight Bearing Status: Partial weight bearing (Protected weightbearing in cam boot to right foot) Keep extremity elevated above heart level: Right Leg (Elevate right leg at all times of rest for postoperative edema control) Dressing / Incision Call your doctor if you observe: Fever of 101 or Higher, Shortness of breath, Chest pain, Calf discomfort and Uncontrolled pain Change Dressing in: do not change dressing (May reinforce outer dressing for strikethrough. Otherwise leave dressing in place until follow-up.) Remove Dressing in: leave in place till F/U (Physician will change dressing at first postop appointment) Cleanse incision/area with: Do not get Incision Wet and Keep Dressing Clean & Dry (Keep dressings clean, dry, and intact to the right foot) Follow Up Care Please Follow Up With: Jason Lewis DPM When: Patient has first postoperative appointment in office next week Test Results: Test results from this visit will be discussed in further detail at your follow-up appointment, if applicable. Discharge Plan Admission Attending Provider: Jason Lewis Primary Care Provider: Cuong Barros Discharge Orders/Prescriptions Prescriptions: New doxycycline hyclate 100 mg capsule 100 mg PO DAILY 10 Days Qty: 10 0RF hydrocodone-acetaminophen 5-325 mg tablet 1 tab PO Q6H PRN (Reason: pain) 7 Days Qty: 28 0RF No Action liothyronine 25 MCG tablet 25 mcg PO DAILY Label Comments: TAKE 1 TABLET BY MOUTH EVERY DAY IN THE MORNING montelukast [Singulair] 10 MG tablet 10 mg PO QHS armodafinil 150 MG tablet 150 mg PO BID Label Comments: TAKE 1 TABLET TWICE DAILY baclofen 10 mg Tablet 10 mg PO TID PRN (Reason: muscle relax) fluticasone propionate 50 mcg/actuation [place],Suspension 1 spray INTRANASAL BID PRN (Reason: allergies) ibuprofen [Advil] 200 mg Tablet 400 mg PO BID Janumet 50-500 mg tablet 1 tab PO DAILY levothyroxine 125 mcg Tablet 100 mcg PO DAILY levocetirizine 5 mg tablet 1 tab PO DAILY Referrals / Follow Up: Cuong Barros MD [Primary Care Provider] - Disposition Disposition (needs filled in before D/C Order can be placed): Home, Self Care
[2022-10-16 13:42] LABS: Bedside Glucose 169 mg/dL (74-106)
--- NOTE | 2022-10-16 14:00 | RAD_ITS ---
INDICATION: Wound care, right foot pain. EXAMINATION/TECHNIQUE: X-RAY - RIGHT Fluoroscopy Foot 2 Views COMPARISON: None. FINDINGS: 2 spot images acquired. Fluoroscopy of the right foot. Total exposure time: 27 seconds. Total DAP cGycm2: 3.91 RAD/Foot 2 Views IMPRESSION: Fluoroscopic support for right midfoot evaluation. Electronically Signed: Arnold Guthrie MD at 21:06 EDT ,
[2022-10-16] MEDS: Lidocaine 1%/Epi 1:200 (30ml) 30 ML AMPUL (14:33)
[2022-10-16] MEDS: Bupivacaine Mpf 0.5% 30 ML VIAL (14:33)
[2022-10-16] MEDS: Cefazolin 2 GM in 0.9% Normal Saline 100 ML IV (14:50)
--- NOTE | 2022-10-16 15:56 | PCM.OPRPT ---
Problems Associated Problem List Diagnoses (1) Non-pressure 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: (2) Type 2 diabetes mellitus with diabetic polyneuropathy: (3) Charcot's joint of right foot: Report of Operation Date of Procedure: 10/16/22 Pre-Operative Diagnosis: 1. Charcot foot with prominent cuboid bone Right foot 2. Diabetes mellitus type 2 with peripheral polyneuropathy 3. Chronic nonpressure ulceration anterior right leg Post-Operative Diagnosis: 1. Charcot foot with prominent cuboid bone Right foot 2. Diabetes mellitus type 2 with peripheral polyneuropathy 3. Chronic nonpressure ulceration anterior right leg Surgery/Procedure Performed:: 1. Charcot Planning/Exostectomy of the prominent cuboid bone, right foot 2. Debridement of ulceration anterior right leg 3. Application of advanced wound care product right leg Description of Surgical Findings:: See operative note for findings Surgeon: Jason Lewis vmware architect: Howard Ac DPM PGY-1 Type of Anesthesia: Local (26 cc one-to-one mixture 1% lidocaine plain and 0.5% Marcaine plain) and MAC Specimen's removed: None Drains: None Estimated Blood Loss (mL): < 9mL Description of Procedure: HPI/indication: This is a 56-year-old female who had been following at the wound care center for a right lower extremity ulceration and right foot ulceration x2 s/p incision and drainage of the right foot and leg in April 2021 and May 2021. Patient had undergone serial debridement at the wound care center with application of advanced wound care products and hyperbaric dives following her discharge from the hospital. She was noted to go on to full healing of all ulcerative sites in December 2021. However at the anterior distal right lower extremity overlying the region of the anterior tibial tendon secondary to inner skin and movement of the tendon in this region she did breakdown with 3 ulcerations along the tendon course with no exposure of tendon in February 2022. Ulcerations noted to be superficial in nature with no signs of infection. She did undergo serial debridement with resolution of one of the ulcerative sites. However remaining ulcerations are noted to exhibit delayed wound healing despite various collagen based products in office. I discussed with her undergoing debridement of these ulcerative sites in the operating room with application of an advanced wound care product to both ulcerative sites. She was agreeable to this. She returned for discussion and to sign consent forms and brought to my attention a small callus starting on the plantar side of the right foot. She did state that there was some soreness however no redness or signs of open ulceration were noted. Radiographs were obtained in office and compared to previous radiographic imaging obtained and noted some progression of her Charcot foot deformity with more prominent cuboid. Labs were obtained prior to surgical intervention and noted to have an increase in her A1c up from 6.5% to 8%. I discussed adding on a procedure to plain down the prominent portion of bone to decrease risk of ulceration on the plantar foot. Patient was agreeable to this. I discussed the surgical procedure in great detail. I reviewed the rationale of the procedure and all risks and benefits in detail. Patient wishes to proceed forward with surgical intervention. I discussed with patient the complications and risks include but are not limited to the following: Pain, continued pain, complex regional pain syndrome, deformity, progression of her Charcot deformity, overcorrection, under correction, infection, dehiscence, delayed healing/nonhealing, swelling, neuritis/numbness, scarring, poor cosmetic result, allergic reaction, blood clot, difficulty wearing a shoe, inability wearing a shoe, difficulty with gait/ambulation, loss of function, loss of limb, loss of life. Patient voices understanding of these. Patient was able to repeat these back. I reviewed the consent forms with the patient and she signed them freely. No promises were made and no guarantees were made. I discussed and reviewed all other options with the patient and she would like to proceed with surgical intervention. Patient was cleared by her PCP to undergo surgical intervention. I reviewed all diagnostic data prior to entering the OR. Operative limb was signed prior to entering the OR. Patient stated she would like to be a local only as she does have severe neuropathy and does not feel much. I discussed with her that we can attempt this however I have planned for conversion to MAC with local anesthesia pending she feel pain during procedure. She was agreeable to this. Patient was scheduled for Charcot planing of prominent cuboid bone of the right foot with debridement of ulceration x2 and application of advanced wound care product to the right leg on 10/16/2022 at [facility]. Procedure: Patient was transported to the operating room and transferred to the table in the supine position. Following timeout and confirmation of procedure and identification of operative limb a pneumatic ankle tourniquet was placed about the mid calf of the right leg. The right leg was then scrubbed, prepped, and draped in the usual aseptic manner. Next, a local anesthetic block was performed about the ankle consisting of 20 cc one-to-one mixture of 1% lidocaine plain and 0.5% Marcaine plain. The right leg was then elevated and the pneumatic ankle tourniquet was inflated to 250 mmHg. At this time attention was directed to the right leg where fluoroscopic imaging was utilized to identify the prominent cuboid bone in multiple views. Incision was marked and guidance of fluoroscopy. A linear incision was made on the lateral aspect of the right foot overlying the region of the cuboid bone extending distally towards the base of the fifth metatarsal utilizing a #15 blade. Incision was deepened via sharp and blunt dissection. Care was taken to identify and retract all vital neurovascular structures and tendon structures. At this time due to patient movement and confirmation of some discomfort I did perform an additional local anesthetic block about this region of the lateral foot proximal to incision site consisting of 6 cc one-to-one mixture of 1% lidocaine plain and 0.5% Marcaine plain. This was noted to provide some relief. Utilizing a hemostat and [place] blunt dissection was performed down to the level of the portion of bone. At this time patient stated that she could feel some pain and the decision was made to convert to MAC anesthesia. Following conversion to MAC anesthesia the prominent portion of cuboid bone was identified under fluoroscopy and smoothed down utilizing power rasp. No prominences were noted following debridement of this bone. Fluoroscopic images were obtained confirming planing of cuboid bone without prominences remaining. Next, the site was copiously irrigated with normal sterile saline. The deep tissues were then closed utilizing a 4-0 Vicryl. The subcutaneous tissues were then closed utilizing 4-0 Monocryl. The skin was then reapproximated utilizing 4-0 Prolene. At this time the pneumatic ankle tourniquet was deflated and a prompt hyperemic response was noted to the digits of the right foot. Next, attention was directed to the anterior aspect of the right lower extremity where 2 ulcerations were noted along the anterior tibial tendon without exposure of the tendon or signs of infection. Predebridement measurements were obtained of these 2 ulcerations and noted as follow: Proximal ulceration measures 4.0 cm x 1.3 cm by 0.1 cm and distal wound measures 2.6 cm x 0.9 cm x 0.1 cm. Sharp excisional debridement was then performed of both ulcerative sites utilizing a curette to the level of the subcutaneous tissue removing all fibrous, devitalized subcutaneous, biofilm, slough. 100% of the ulcerative site was debrided. Ulceration noted to be a Gonzalez stage I. Postdebridement tissue appeared healthy and viable with bleeding tissue noted. Hemostasis was achieved with pressure and gauze. Postdebridement measurements were obtained and are as follows: Proximal ulceration measures 4.1 cm x 1.4 cm x 0.1 cm and distal ulceration measures 2.6 cm x 1.0 cm x 0.1 cm. Next, 500 mg of advanced wound care product, Axiofill was applied to both ulcerative sites. Next Adaptic was applied over the ulcerative sites containing grafting product and anchored with Steri-Strips and dressed with 4 x 4 gauze. The right lateral foot incision was dressed with Betadine soaked Adaptic, 4 x 4 gauze. The entire foot was then dressed with Kerlix and a 4 inch Sebastian wrap. The patient tolerated the procedure and anesthesia well and was transported to PACU with vital signs stable and vascular status intact to the right foot. She was instructed to keep dressings clean, dry, and intact to the right foot and do not get dressings wet and utilize cast bag covering when showering. She is to continue to elevate right lower extremity at times of rest for postoperative edema control. She is permitted to weight-bear as tolerated in her cam boot to the right foot for bathroom privileges but is to elevate at all other times. These instructions were outlined in her postoperative discharge instructions. She will follow-up in office with me next week for postoperative care and local wound care. Grafts/Implants Used: 500 mg Axiofill Complications None Admit VTE Documentation VTE Present on Admission: No VTE Mechan Device Prophylaxis: SCD's VTE Pharm Prophylaxis ordered?: No Reason prophylaxis not ordered:: Procedure Not Indicated
--- NOTE | 2022-10-16 16:10 | RAD_ITS ---
INDICATION: Postoperative Charcot foot planning of cuboid bone EXAMINATION/TECHNIQUE: X-RAY - RIGHT XR Foot Min 3 Views. 3 views. COMPARISON: Right foot x-rays November 22, 2021. Fluoroscopic imaging October 16, 2021. FINDINGS: Osteopenia. Advanced, destructive degenerative changes of the midfoot, consistent with neuropathic-Charcot foot. First MTP joint degenerative change. Left fibular ORIF hardware. No acute fracture. Mild, generalized soft tissue swelling. RAD/Foot min 3 Views IMPRESSION: Charcot foot. No acute osseous abnormality. Electronically Signed: Arnold Guthrie MD at 22:05 EDT ,
== END 2022-10-16 16:50 | disposition home or self-care (01) ==
LOC: SDC 12:39 → AC 12:41
PROVIDERS: PCP Family Medicine; Visit Provider Student in an Organized Health Care Education/Training Program
PROC: (CPT 28120; principal; 2022-10-16 13:45)
DX: E11.621 Type 2 diabetes mellitus with foot ulcer (principal); L97.212 Non-pressure 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; E11.42 Type 2 diabetes mellitus with diabetic polyneuropathy; E11.610 Type 2 diabetes mellitus with diabetic neuropathic arthropathy; E66.01 Morbid (severe) obesity due to excess calories; I65.23 Occlusion and stenosis of bilateral carotid arteries; E03.9 Hypothyroidism, unspecified; M25.511 Pain in right shoulder; G89.29 Other chronic pain; M75.31 Calcific tendinitis of right shoulder; M75.01 Adhesive capsulitis of right shoulder; M79.7 Fibromyalgia; M51.26 Other intervertebral disc displacement, lumbar region; M48.061 Spinal stenosis, lumbar region without neurogenic claudication; G47.429 Narcolepsy in conditions classified elsewhere without cataplexy; J30.9 Allergic rhinitis, unspecified; Z86.73 Personal history of transient ischemic attack (TIA), and cerebral infarction without residual deficits; Z87.891 Personal history of nicotine dependence; Z79.899 Other long term (current) drug therapy; Z86.16 Personal history of COVID-19
CPT/HCPCS: 28120; 11042; 15275; 01480; 73620; 73630; 76000; 82962; J7120; J2405

== ENCOUNTER 2024-02-06 10:23 | Inpatient (IN) | payer OTHER, SELFPAY ==
[2024-02-06] VITALS (12 sets, daily range): BP systolic 113–133; BP diastolic 60–79; PULSE 79–108; RESP 16–23; TEMP 36.8–37.9; O2SAT 93–98; BMI 30.7; BMI 29.9
--- NOTE | 2024-02-06 11:14 | CT_ITS ---
STUDY: CT BRAIN WITHOUT CONTRAST REASON FOR EXAM: Female, 58 years old. Dizzy RADIATION DOSAGE (If Supplied By Facility): CTDIvol = ( 44.99 ) mGy, DLP = ( 849.254 ) mGycm TECHNIQUE: Transaxial CT imaging of the brain was performed without administration of intravenous contrast material. Individualized dose optimization techniques were used for this CT. COMPARISON: No relevant priors. FINDINGS: Normal soft tissue structures. Normal calvarium. Normal size ventricles and extra-axial spaces for the patient''s age. There are areas of decreased attenuation within the white matter tracts of the supratentorial brain, consistent with microvascular disease changes. There is lacunar infarct of the left basal ganglia. Normal brainstem. Normal cerebellum. There is no intracranial hemorrhage. There are no findings of an acute ischemic infarction. Normal visualized paranasal sinuses. CT/Brain/Head without Contrast IMPRESSION: Chronic involutional changes of the brain. Electronically Signed: Tone Hall MD at 12:55 EDT ,
--- NOTE | 2024-02-06 11:14 | EX.ED.DYSGE1 ---
HPI <SILVINA Arceo - Last Filed: 02/06/24 12:41> History of Present Illness Chief Complaint: Fatigue Narrative Narrative: Patient's 58-year-old female history of diabetes, Charcot foot who presents to the emergency department for multiple complaints. Patient states for the last 4 to 5 days, she has been feeling dizzy, generalized abdominal aching, fever, chills, ear pain, headache. Patient states that she cannot even stand up and walk because she is so dizzy and unsteady. She states the highest fever was 102 ?F. She does complain of nausea vomiting diarrhea. PFS <SILVINA Arceo - Last Filed: 02/06/24 12:41> [facility] Medical History Hypotension Post-menopausal Back pain Injury of head and neck Dietary restriction Diabetes Former smoker Asthma Chronic ulcer of right foot due to diabetes mellitus Non-pressure 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 Infectious tenosynovitis Cellulitis of right lower limb MRSA bacteremia Acute osteomyelitis of left foot Diabetes mellitus with diabetic polyneuropathy Charcot's joint of right foot Narcolepsy Sleep disorder Allergies Hypothyroidism History of MRSA infection Weakness COVID-19 DKA, type 2 Malnutrition 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 Home Medications ?Medication ?Instructions ?Recorded ?Last Taken ?Type armodafinil 150 mg tablet 150 mg PO BID to stay awake 09/25/16 Unknown History liothyronine 25 mcg tablet 25 mcg PO DAILY thyroid 09/25/16 Unknown History montelukast 10 mg tablet 10 mg PO QHS allergy 09/25/16 Unknown History (Singulair) baclofen 10 mg tablet 10 mg PO TID PRN muscle relax 01/01/21 Unknown History fluticasone propionate 50 1 spray intranasal BID PRN 01/01/21 Unknown History mcg/actuation nasal allergies spray,suspension ibuprofen 200 mg tablet (Advil) 400 mg PO BID pain 05/21/21 Unknown History levocetirizine 5 mg tablet 1 tab PO DAILY PRN Allergies 11/22/21 Unknown History levothyroxine 125 mcg tablet 100 mcg PO DAILY thyroid 11/22/21 Unknown History sitagliptin phosphate 50 4 tab PO DAILY 11/22/21 Unknown History mg-metformin 500 mg tablet (Mayumeaixa) hydrocodone-acetaminophen 5-325mg 1 tab PO Q6H PRN pain 7 days #28 10/16/22 Unknown Rx 5mg-325mg tabs metformin 500 mg tablet,extended 1,000 mg PO BID diabetes 02/06/24 Unknown History release 24 hr Allergy/AdvReac Type Severity Reaction Status Date / Time clindamycin Allergy Hives Verified 02/06/24 10:27 pregabalin (From Lyrica) Allergy Swelling Verified 02/06/24 10:27 bee venom protein (honey bee) AdvReac Anaphylaxis Verified 02/06/24 10:27 vancomycin AdvReac Other Verified 02/06/24 10:27 Family History Father CVA (cerebral vascular accident) Clotting disorder Seizures Mother Osteoarthritis Other Charcot's joint of right foot Diabetes Heart disease Hypertension 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 alcohol intake: current alcohol intake frequency: holidays/special occasions only substance use type: does not use ROS <SILVINA Arceo - Last Filed: 02/06/24 12:41> ROS ED ROS Narrative Constitutional: Negative for fever, chills, weight loss. Positive weakness Eyes: Negative for vision loss, vision change, double vision ENT: Negative for any sore throat, congestion. Positive for ear pain Cardiovascular: Negative for any chest pain, tightness, palpitations Respiratory: Negative for any cough, sputum production, hemoptysis, dyspnea, dyspnea on exertion, orthopnea Gastrointestinal: Negative for any diarrhea, constipation, blood in stool, blood in vomit. Positive for nausea, diarrhea, abdominal pain, vomiting : Negative for any urinary frequency, dysuria, retention, blood in urine Muscle skeletal: Negative for any neck pain, back pain. Positive for myalgias Neurological: Negative for any headache, syncope. Positive for dizziness, unsteadiness Skin: Negative for any rashes, itching, abrasions, lacerations Psychiatric: Negative for any depression, anxiety, stress, suicidal ideation, homicidal ideation Hematologic: Negative for any excessive bruising, easy bleeding EXAM <SILVINA Arceo - Last Filed: 02/06/24 12:41> Physical Exam Narrative Exam Narrative: Vital signs reviewed. Patient is alert and orient x 4. HEET: Head normocephalic atraumatic, TMs clear bilaterally. Posterior pharynx is clear, dry mucous membranes. Nares clear bilaterally. Neck: Supple with no lymphadenopathy or tenderness. No signs of meningismus. Cardiac: Regular rate and rhythm no murmurs gallops or rubs, equal peripheral pulses bilaterally. Respiratory: Lungs clear to auscultation bilaterally. No chest tenderness. Abdomen: Soft, nontender, nondistended. No abdominal bruit or pulsatile masses. No hepatosplenomegaly Extremities: No peripheral edema, no signs of gross trauma or deformity. Patient's left foot is in a splint secondary to foot drop. Patient's right foot is in a boot secondary to injury. Neuro: Cranial nerves II through XII intact, no focal neurological deficits. NIH stroke scale 0 Skin: Clean dry and intact with no rash, purpura, petechiae, vesicles or pustules. Backs/flank: No CVA tenderness, no midline spinal tenderness, no deformity. Psych: Normal mood and affect. No SI, HI or acute psychosis. Const Vital Signs: 02/06/24 10:24 02/06/24 10:27 02/06/24 10:41 Temperature 100.2 F H 98.4 F Temperature Source Oral Oral Pulse Rate 108 H 102 H Pulse Rate [Lying] Pulse Rate [Sitting (for 1 minute prior to obtaining)] Pulse Rate [Standing (for 1 minute prior to obtaining)] Respiratory Rate 16 16 Respiratory Effort Normal Respiratory Pattern Normal Blood Pressure 131/68 H 131/73 H Blood Pressure [Lying] Blood Pressure [Sitting (for 1 minute prior to obtaining)] Blood Pressure [Standing (for 1 minute prior to obtaining)] Blood Pressure Mean 89 92 Blood Pressure Mean [Lying] Blood Pressure Mean [Sitting (for 1 minute prior to obtaining)] Blood Pressure Mean [Standing (for 1 minute prior to obtaining)] Pulse Ox 94 95 Oxygen Delivery Method Room Air Room Air 02/06/24 11:20 02/06/24 11:27 02/06/24 12:00 Temperature 98.4 F 98.9 F Temperature Source Oral Oral Pulse Rate 101 H 94 Pulse Rate [Lying] 98 Pulse Rate [Sitting (for 1 minute prior to obtaining)] 104 H Pulse Rate [Standing (for 1 minute prior to obtaining)] 105 H Respiratory Rate 16 16 Respiratory Effort Respiratory Pattern Blood Pressure 119/72 126/65 H Blood Pressure [Lying] 129/70 H Blood Pressure [Sitting (for 1 minute prior to obtaining)] 130/79 H Blood Pressure [Standing (for 1 minute prior to obtaining)] 133/77 H Blood Pressure Mean 87 85 Blood Pressure Mean [Lying] 89 Blood Pressure Mean [Sitting (for 1 minute prior to obtaining)] 96 Blood Pressure Mean [Standing (for 1 minute prior to obtaining)] 95 Pulse Ox 95 96 Oxygen Delivery Method Room Air Room Air 02/06/24 12:23 02/06/24 12:51 02/06/24 13:00 Temperature 98.9 F 98.4 F Temperature Source Oral Pulse Rate 92 94 84 Pulse Rate [Lying] Pulse Rate [Sitting (for 1 minute prior to obtaining)] Pulse Rate [Standing (for 1 minute prior to obtaining)] Respiratory Rate 16 18 16 Respiratory Effort Respiratory Pattern Blood Pressure 125/65 H 114/64 113/65 Blood Pressure [Lying] Blood Pressure [Sitting (for 1 minute prior to obtaining)] Blood Pressure [Standing (for 1 minute prior to obtaining)] Blood Pressure Mean 85 80 81 Blood Pressure Mean [Lying] Blood Pressure Mean [Sitting (for 1 minute prior to obtaining)] Blood Pressure Mean [Standing (for 1 minute prior to obtaining)] Pulse Ox 96 96 93 Oxygen Delivery Method Room Air Room Air Positive well nourished, well developed and obese General Appearance ED: well developed Nutritional Appearance: obese <Dr. Meli Everett, DO - Last Filed: 02/06/24 21:40> Physical Exam Const Vital Signs: 02/06/24 10:24 02/06/24 10:27 02/06/24 10:41 Temperature 100.2 F H 98.4 F Temperature Source Oral Oral Pulse Rate 108 H 102 H Pulse Rate [Lying] Pulse Rate [Sitting (for 1 minute prior to obtaining)] Pulse Rate [Standing (for 1 minute prior to obtaining)] Respiratory Rate 16 16 Respiratory Effort Normal Respiratory Pattern Normal Blood Pressure 131/68 H 131/73 H Blood Pressure [Lying] Blood Pressure [Sitting (for 1 minute prior to obtaining)] Blood Pressure [Standing (for 1 minute prior to obtaining)] Blood Pressure Mean 89 92 Blood Pressure Mean [Lying] Blood Pressure Mean [Sitting (for 1 minute prior to obtaining)] Blood Pressure Mean [Standing (for 1 minute prior to obtaining)] Pulse Ox 94 95 Oxygen Delivery Method Room Air Room Air 02/06/24 11:20 02/06/24 11:27 02/06/24 12:00 Temperature 98.4 F 98.9 F Temperature Source Oral Oral Pulse Rate 101 H 94 Pulse Rate [Lying] 98 Pulse Rate [Sitting (for 1 minute prior to obtaining)] 104 H Pulse Rate [Standing (for 1 minute prior to obtaining)] 105 H Respiratory Rate 16 16 Respiratory Effort Respiratory Pattern Blood Pressure 119/72 126/65 H Blood Pressure [Lying] 129/70 H Blood Pressure [Sitting (for 1 minute prior to obtaining)] 130/79 H Blood Pressure [Standing (for 1 minute prior to obtaining)] 133/77 H Blood Pressure Mean 87 85 Blood Pressure Mean [Lying] 89 Blood Pressure Mean [Sitting (for 1 minute prior to obtaining)] 96 Blood Pressure Mean [Standing (for 1 minute prior to obtaining)] 95 Pulse Ox 95 96 Oxygen Delivery Method Room Air Room Air 02/06/24 12:23 02/06/24 12:51 02/06/24 13:00 Temperature 98.9 F 98.4 F Temperature Source Oral Pulse Rate 92 94 84 Pulse Rate [Lying] Pulse Rate [Sitting (for 1 minute prior to obtaining)] Pulse Rate [Standing (for 1 minute prior to obtaining)] Respiratory Rate 16 18 16 Respiratory Effort Respiratory Pattern Blood Pressure 125/65 H 114/64 113/65 Blood Pressure [Lying] Blood Pressure [Sitting (for 1 minute prior to obtaining)] Blood Pressure [Standing (for 1 minute prior to obtaining)] Blood Pressure Mean 85 80 81 Blood Pressure Mean [Lying] Blood Pressure Mean [Sitting (for 1 minute prior to obtaining)] Blood Pressure Mean [Standing (for 1 minute prior to obtaining)] Pulse Ox 96 96 93 Oxygen Delivery Method Room Air Room Air [facility] <Arnold AlfordSILVINA espinosa - Last Filed: 02/06/24 12:41> [facility] Lab Data Labs: Laboratory Results - last 24 hr 02/06/24 02/06/24 11:29 11:46 WBC 13.0 H RBC 4.65 Hgb 14.2 Hct 41.9 MCV 90.1 MCH 30.5 MCHC 33.9 RDW Std Deviation 41.8 RDW Coeff of Amos 12.7 Plt Count 177 MPV 11.5 Immature Gran % (Auto) 0.800 Neut % (Auto) 85.1 H Lymph % (Auto) 7.1 L [place] % (Auto) 6.1 Eos % (Auto) 0.1 Baso % (Auto) 0.8 Absolute Neuts (auto) 11.1 H Absolute Lymphs (auto) 0.92 Nucleated RBC % 0.2 Sodium 127 L Potassium 3.0 L Chloride 89 L Carbon Dioxide 20.0 L Anion Gap 18 H BUN 22 H Creatinine 0.85 Estim Creat Clear Calc 84.31 Est GFR (MDRD) Af Amer 88 Est GFR (MDRD) Non-Af 72 BUN/Creatinine Ratio 25.8 H Glucose 432 H Lactic Acid 1.1 Calcium 9.2 Total Bilirubin 1.30 H AST 28 ALT 66 H Alkaline Phosphatase 96 Total Protein 7.3 Albumin 2.5 L Globulin 4.8 H Albumin/Globulin Ratio 0.5 L Lipase 28 Urine Color Yellow Urine Clarity Cloudy Urine pH 6.0 Ur Specific [place] 1.010 Urine Protein 100 H Urine Glucose (UA) 1000 H Urine Ketones 150 A* Urine Occult Blood 150 H Urine Nitrite Negative Urine Bilirubin Negative Urine Urobilinogen 1 H Ur Leukocyte Esterase 500 H Urine RBC 0-5 SEEN Urine WBC >100 SEEN Ur Squamous Epith Cells 0-5 SEEN Urine Bacteria 1+ Urine Mucus 0 SEEN Acetone Level SMALL H ABG Data ABG results: ABG 02/06/24 13:02 Specimen Type ART Sample Site L Radial pH 7.44 Bicarbonate Actual 18.6 L Total CO2 19 Base Excess -6 L O2 Saturation 96 O2 % 21.0 ABG pCO2 27.2 L ABG pO2 78 Janusz Test Positive O2 Delivery Device Room Air Vent Mode Not entered Radiography Diagnostic Testing: Clinical Impression(s) from Imaging Studies Brain CT 02/06/24 11:14 IMPRESSION: Chronic involutional changes of the brain. Electronically Signed: Tone Hall MD at 12:55 EDT Reading Location ID and State: [id number] / [place] , Service support , Chest X-Ray 02/06/24 12:00 IMPRESSION: Degenerative changes, as described above. No demonstrated acute cardiopulmonary process. Electronically Signed: Tone Hall MD at 12:59 EDT , Treatment and Re-Evaluation :: Differential diagnosis includes however is not limited to: Vertigo, electrolyte abnormality, orthostatic hypotension, COVID-19, influenza RSV, other viral illness, GI illness Patient appears to be in no obvious distress vital signs are stable, nontoxic-appearing. [facility] for multiple complaints. Patient is she is dizzy she has ear pain, fever, chills, nausea vomiting diarrhea. Per the daughter that she lives with, the patient has not been taking her medications over the last 4 to 5 days. They are concerned with how weak she has become. Patient will receive IV fluids, ensuring that she is not in any DKA, acetone, lactic acid, basic laboratory values. Patient be given oral Tylenol. COVID-19 influenza, RSV will be obtained. Patient will see the urinalysis well two-view chest x-ray, CT scan of the brain. All radiologic examinations were read, reviewed by the emergency department attending. From these reads, a plan of care will be put in place. Chest x-ray, CT scan was negative. Patient's laboratory values show leukocytosis white blood count of 13, patient's chemistries showed multiple abnormalities. Patient's sodium is 127, testing was 3.0, this will be replaced orally. Patient was given IV fluids. Patient's CO2 is 20, lactic acid was negative. Patient's blood glucose was 432, anion gap of 18 acetone level small. Secondary to this finding, the patient not been taking her diabetic medications, he placed on insulin drip. Patient's urinalysis showed 1+ bacteria greater than 100 white blood cells, 500 leuks. This we sent for culture, patient replaced on IV Rocephin. I will speak to the hospitalist regarding admission. Spoke with hospitalist, we are going to wait on the insulin drip. Patient will be given IV Rocephin. Patient stable for admission <Dr. Meli Everett DO - Last Filed: 02/06/24 21:40> [facility] Narrative Medical decision making narrative: I have personally performed a face to face assessment of the patient and have reviewed the ARIANNA Note. I performed a substantive portion of the visit including all aspects of the following. My cruz findings include: History is [patient presents with vomiting and diarrhea that started 5 days ago. She states that she had increased her metformin to 2000 mg a day prior and then stopped taking any of her diabetic medications when she got sick. Patient continues to have vomiting and diarrhea and she feels lightheaded. She denies sick contacts. She is tested for COVID at home and was negative.] Exam is [HEENT-PERRLA, EOMI. Cranial nerves II through XII grossly intact. TMs clear. Mucous membranes moist. No adenopathy. Cardiovascular-regular rate and rhythm without murmur or ectopy Lungs-clear to auscultation, chest wall stable without crepitus or subcu emphysema Abdomen-normoactive bowel sounds, soft, nontender, no rebound or rigidity, no peritoneal signs. Extremities-intact ?4, normal range of motion, normal pulses, atraumatic] Medical Decison Making [patient presents with vomiting and diarrhea. In the differential would be viral etiology versus DKA or other. IV line established. She was ordered a liter mostly fluid bolus. CBC with differential obtained showed a white count of 13.0 with hemoglobin of 14 and platelet count of 177. Chemistries significant for hyponatremia with sodium 127 and potassium 3.0. CO2 was 20 and she had an elevated anion gap of 18. Blood glucose was 432. LFTs unremarkable. Urinalysis showed ketones and 500 leukocyte esterase. Patient had small acetone in the serum. Patient was ordered an insulin drip. Patient has DKA. Patient has dehydration. Patient will be admitted to hospitalist service. CT scan of brain without contrast interpretation does not show anything acute. Her chest x-ray was unremarkable.] Other additions or changes: [None] Lab Data Attestation: I reviewed the patient's lab results. Labs: Laboratory Results - last 24 hr 02/06/24 02/06/24 11:29 11:46 WBC 13.0 H RBC 4.65 Hgb 14.2 Hct 41.9 MCV 90.1 MCH 30.5 MCHC 33.9 RDW Std Deviation 41.8 RDW Coeff of Amos 12.7 Plt Count 177 MPV 11.5 Immature Gran % (Auto) 0.800 Neut % (Auto) 85.1 H Lymph % (Auto) 7.1 L [place] % (Auto) 6.1 Eos % (Auto) 0.1 Baso % (Auto) 0.8 Absolute Neuts (auto) 11.1 H Absolute Lymphs (auto) 0.92 Nucleated RBC % 0.2 Sodium 127 L Potassium 3.0 L Chloride 89 L Carbon Dioxide 20.0 L Anion Gap 18 H BUN 22 H Creatinine 0.85 Estim Creat Clear Calc 84.31 Est GFR (MDRD) Af Amer 88 Est GFR (MDRD) Non-Af 72 BUN/Creatinine Ratio 25.8 H Glucose 432 H Lactic Acid 1.1 Calcium 9.2 Total Bilirubin 1.30 H AST 28 ALT 66 H Alkaline Phosphatase 96 Total Protein 7.3 Albumin 2.5 L Globulin 4.8 H Albumin/Globulin Ratio 0.5 L Lipase 28 Urine Color Yellow Urine Clarity Cloudy Urine pH 6.0 Ur Specific [place] 1.010 Urine Protein 100 H Urine Glucose (UA) 1000 H Urine Ketones 150 A* Urine Occult Blood 150 H Urine Nitrite Negative Urine Bilirubin Negative Urine Urobilinogen 1 H Ur Leukocyte Esterase 500 H Urine RBC 0-5 SEEN Urine WBC >100 SEEN Ur Squamous Epith Cells 0-5 SEEN Urine Bacteria 1+ Urine Mucus 0 SEEN Acetone Level SMALL H ABG Data ABG results: ABG 02/06/24 13:02 Specimen Type ART Sample Site L Radial pH 7.44 Bicarbonate Actual 18.6 L Total CO2 19 Base Excess -6 L O2 Saturation 96 O2 % 21.0 ABG pCO2 27.2 L ABG pO2 78 Janusz Test Positive O2 Delivery Device Room Air Vent Mode Not entered Radiography Diagnostic Testing: Clinical Impression(s) from Imaging Studies Brain CT 02/06/24 11:14 IMPRESSION: Chronic involutional changes of the brain. Electronically Signed: Tone Hall MD at 12:55 EDT , Chest X-Ray 02/06/24 12:00 IMPRESSION: Degenerative changes, as described above. No demonstrated acute cardiopulmonary process. Electronically Signed: Tone Hall MD at 12:59 EDT , 1 view chest x-ray obtained interpreted by myself as no evidence of infiltrate or pneumothorax or acute disease process. Radiology felt there was degenerative changes but no acute cardiopulmonary process. Discharge Plan Dx/Rx/DC Orders Clinical Impression: DKA, type 2, Acute dehydration, Viral syndrome, Dizziness Disposition Disposition: Acute Care [facility] Discharge Date/Time: 02/06/24 14:41
[2024-02-06] MEDS: 0.9% Normal Saline (1000mL) 1,000 ML 999 ML IV (11:33)
[2024-02-06] MEDS: Ondansetron 4 MG/2 ML Vial IV (11:33)
[2024-02-06] MEDS: Acetaminophen 500 MG Tablet 1000 MG PO (11:35)
[2024-02-06 11:45] LABS: Absolute Lymphocyte Count 0.92 X10^3/uL (0.83-4.51); Absolute Neutrophil Count 11.1 X10^3/uL (2.0-7.7); Basophil# 0.11 X10^3/uL; Basophil% 0.8 % (0-1); Eosinophil# 0.01 X10^3/uL; Eosinophils% 0.1 % (0-5); Hematocrit 41.9 % (37-47); Hemoglobin 14.2 g/dL (12.0-15.0); Lymphocyte # 0.92 X10^3/ul (0.83-4.51); Lymphocyte % 7.1 % (19-41); Mean Corp Hgb Conc 33.9 g/dL (32-36); Mean Corpuscular Hgb 30.5 pg (27.0-32.0); Mean Corpuscular Volume 90.1 fL (81-99); Mean Platelet Vol. 11.5 fl (6.2-12.0); Monocyte% 6.1 % (0-10); NRBC Flagged by Analyzer 0.2 % (0-5); Neutrophil # 11.08 X10^3/uL (2.7-7.7); Neutrophil % 85.1 % (47-70); Platelet Count 177 K/mm3 (150-450); RBC Distribution Width CV 12.7 % (11.6-14.6); RBC Distribution Width SD 41.8 fl (35.1-43.9); Red Blood Count 4.65 M/mm3 (4.2-5.4)
[2024-02-06 11:52] LABS: Mucous, Urine 0 SEEN /hpf (<or=2+)
[2024-02-06 11:54] LABS: Color, Urine Yellow (Yellow); Glucose, Dipstick 1000 mg/dl (Normal); Leukocyte Esterase-Dipstick 500 /ul (Negative); Nitrite-Dipstick Negative (Negative); Occult Blood-Urine 150 /ul (Negative); Protein-Dipstick 100 mg/dl (Negative); Urine Bilirubin Dipstick Negative (Negative); Urine Clarity Cloudy (Clear); Urine Urobilinogen 1 mg/dl (Normal)
--- NOTE | 2024-02-06 12:00 | RAD_ITS ---
STUDY: X-RAY CHEST REASON FOR EXAM: Female, 58 years old. Cough TECHNIQUE: Frontal and lateral views of the chest. COMPARISON: November 22, 2021. FINDINGS: The lungs are clear and expanded. There is no demonstrated pleural abnormality. Normal size heart. Normal mediastinum and yolanda. Normal visualized pulmonary arteries. Normal visualized aortic arch and descending thoracic aorta. There are diffuse degenerative changes of the visualized thoracic spine. Normal visualized ribs, clavicles, and shoulders. There is no demonstrated abnormality of the visualized soft tissue structures of the upper abdomen. RAD/Chest PA and Lateral IMPRESSION: Degenerative changes, as described above. No demonstrated acute cardiopulmonary process. Electronically Signed: Tone Hall MD at 12:59 EDT ,
[2024-02-06 12:06] LABS: ALB/GLOB Ratio 0.5 RATIO (0.9-2.4); AST(SGOT) 28 U/L (15-37); Alanine Aminotransfer ALT/SGPT 66 U/L (13-56); Albumin, Serum 2.5 g/dL (3.2-5.0); Alkaline Phosphatase 96 U/L (45-117); Anion Gap 18 (5-15); BUN 22 mg/dL (7-18); BUN/Creat Ratio 25.8 RATIO (10-20); Calcium,Total 9.2 mg/dL (8.5-10.1); Chloride 89 mmol/L (98-107); Creatinine, Serum 0.85 mg/dL (0.55-1.02); EST Glomerular Filtration Rate 72 mL/min (>60); Est Glom Filt Rate - Afr Amer 88 mL/min (>60); Estimated Creatinine Clearance 84.31 ml/min; Globulin 4.8 g/dL (2.2-4.2); Glucose 432 mg/dL (74-106); Lipase 28 U/L (13-75); Protein, Total 7.3 g/dL (6.4-8.2); Sodium Level 127 mmol/L (136-145)
[2024-02-06 12:11] LABS: Lactic Acid 1.1 mmol/L (0.4-1.9)
[2024-02-06 12:12] LABS: Ketone-Dipstick 150 mg/dl (Negative)
[2024-02-06 12:26] LABS: Bacteria 1+ /hpf (None Seen); Squamous Epithelial Cells - UA 0-5 SEEN /hpf (5-10)
[2024-02-06 12:28] LABS: White Blood Cells >100 SEEN /hpf (0-5)
[2024-02-06 12:29] LABS: Red Blood Cells-Urine 0-5 SEEN /hpf (0-5)
--- OUTSIDE RECORDS SUMMARY | 2024-02-06 12:31 | XMS RPT_ITS | CCD ---
Author Organization [facility] Inform ion Partnership [facility] Care Team Providers Care [place] Coverer Name Role Phone MIKO ROCA MD Attending Unavailable MIKO ROCA MD Primary Care Unavailable MIKO ROCA MD Admitting Unavailable Cuong Trujillo MD Primary Care Provider [phone] Cuong Trujillo MD Primary Care Provider Cuong Trujillo MD Primary Care Provider Cuong Trujillo MD Primary Care Provider Cuong Trujillo MD Primary Care Provider ESTEFANÍA SCHMIDT Referring Unavailable CUONG TRUJILLO Primary Care Unavailable YRIS KELLEY Attending Unavailable CUONG TURJILLO Primary Care Unavailable CUONG TRUJILLO Referring Unavailable CUONG TRUJILLO Primary Care Unavailable CUONG TRUJILLO Primary Care Unavailable YRIS EKLLEY Referring Unavailable CUONG TRUJILLO Primary Care Unavailable Allergies Allergy Classification Reported Allergen(s) Allergy Type Date of Onset Reaction(s) Facility Cats (1 source) Cat Animal Allergy (Dander) 7 [facility] Dogs (1 source) Dog Animal Allergy (Dander) 7 [facility] Dust (1 source) Dust Substance Allergy 7 [facility] Glycopeptides (antibiotic) (1 source) Vancomycin Drug Allergy 2 Other: See Comments [facility] Latex (1 source) Latex Substance Allergy 7 [facility] Lincosamides (antibiotic) (1 source) Clindamycin Drug Allergy 9 Hives [facility] Mold Extract (1 source) Mold Extract Drug Allergy 7 [facility] Work Phone: pregabalin (1 source) pregabalin Drug Allergy 9 Swelling [facility] (1 source) 05/10/16 (+) MRSA WOUND; Translations: [05/10/16 (+) MRSA WOUND] Propensity to adverse reactions (disorder) [facility] Repository (20 sources) Cat; Translations: [CATS] Propensity to adverse reactions 7 [facility] Work Phone: (20 sources) Clindamycin; Translations: [CLINDAMYCIN] Drug Allergy 9 Hives [facility] Work Phone: (20 sources) Dog; Translations: [DOGS] Propensity to adverse reactions 7 [facility] Work Phone: (20 sources) Dust; Translations: [DUST] Propensity to adverse reactions 7 [facility] Work Phone: (20 sources) House dust mite; Translations: [DUST MITES] Propensity to adverse reactions 7 [facility] Work Phone: (20 sources) Latex; Translations: [LATEX] Propensity to adverse reactions 7 [facility] Work Phone: (20 sources) Mold Extract; Translations: [MOLD] Drug Allergy 7 [facility] Work Phone: (20 sources) pregabalin; Translations: [PREGABALIN] Drug Allergy 9 Swelling [facility] (20 sources) Bees; Translations: [BEES] Propensity to adverse reactions 7 [facility] Work Phone: (20 sources) Vancomycin; Translations: [VANCOMYCIN] Drug Allergy 2 Other: See Comments [facility] Medications Current Medications Medication Drug Class(es) Dates Sig (Normalized) Sig (Original) armodafinil 150 mg oral tablet (20 sources) Start: 07-16-2023 End: 10-14-2023 take 1 tablet by mouth twice daily armodafinil (NUVIGIL) 150 mg tab Indications: Narcolepsy due to underlying condition without cataplexy Take 1 tablet by mouth two times a day for 90 days. 60 tablet 2 07/16/2023 Active Start: 12-14-2022 End: 03-14-2023 take 1 tablet by mouth twice daily armodafinil (NUVIGIL) 150 mg tab Indications: Narcolepsy due to underlying condition without cataplexy Take 1 tablet by mouth twice daily for 90 days. 60 tablet 2 12/14/2022 Active Start: 06-08-2022 End: 09-06-2022 take 1 tablet by mouth twice daily armodafinil (NUVIGIL) 150 mg tab Indications: Narcolepsy due to underlying condition without cataplexy Take 1 tablet by mouth twice daily for 90 days. 60 tablet 2 06/08/2022 Active Start: 07-25-2021 End: 01-06-2022 take 1 tablet by mouth twice daily armodafinil (NUVIGIL) 150 mg tab Indications: Narcolepsy due to underlying condition without cataplexy Take 1 tablet by mouth twice daily for 90 days. 60 tablet 2 10/08/2021 Active Comment on above: Take 1 tablet by patricia th twice daily for 90 days. Take 1 tablet by patricia th two times a day for 90 days. baclofen 10 mg oral tablet (20 sources) gamma-Aminobutyric Acid-ergic Agonist Start: 04-26-2023 End: 12-29-2023 baclofen 10 mg tablet Indications: Complex regional pain syndrome type 1 of lower extremity, unspecified laterality TAKE 1 TABLET BY MOUTH THREE TIMES DAILY NEEDED FOR MUSCLE SPASM. DO NOT USE WITH FLEXERIL 90 tablet 1 12/29/2023 Active Start: 01-27-2022 End: 04-24-2023 baclofen (LIORESAL) 10 mg ta blet Indications: Complex regional pain syndrome type 1 of lower extremity, unspecified laterality TAKE 1 TABLET BY MOUTH THREE TIMES DAILY NEEDED FOR MUSCLE SPASM. DO NOT USE WITH FLEXERIL 90 tablet 1 07/27/2022 04/24/2023 Discontinued Start: 07-22-2021 End: 01-25-2022 baclofen (LIORESAL) 10 mg ta blet Indications: Complex regional pain syndrome type 1 of lower extremity, unspecified laterality TAKE 1 TABLET BY MOUTH THREE TIMES DAILY NEEDED FOR MUSCLE SPASM. DO NOT USE WITH FLEXERIL 90 tablet 1 01/27/2022 Active Comment on above: TAKE 1 TABLET BY PATRICIA TH THREE TIMES DAILY NEEDED FOR MUSCLE SPASM. DO NOT USE WITH FLEXERIL Blood-Glucose Meter (20 sources) Start: 10-22-2021 Blood-Glucose Meter Indications: Type 2 diabetes mellitus with complication, without long-term current use of insulin (HCC) 1 Each as directed. 1 Each 10/22/2021 Active Start: 10-22-2021 Blood-Glucose Meter Indications: Type 2 diabetes mellitus with complication, without long-term current use of insulin (HCC) 1 Each as directed. 1 Each 0 10/22/2021 Active Start: 10-10-2021 End: 04-13-2023 Blood-Glucose Meter Indicati ons: Type 2 diabetes mellitus with complication, without long-term current use of insulin (HCC) Use as directed 1 Each 0 10/10/2021 04/13/2023 Discontinued Start: 10-10-2021 Blood-Glucose Meter Indications: Type 2 diabetes mellitus with complication, without long-term current use of insulin (HCC) Use as directed 1 Each 0 10/10/2021 Active Comment on above: Use as directed 1 Each as directed. cephalexin 500 mg oral capsule (1 source) Cephalosporin Antibacterial Start: 023 End: take 1 capsule by mouth twice daily cephALEXin (KEFLEX) 500 mg capsule Take 1 capsule by mouth twice daily for 7 days. 14 capsule 0 01/02/2023 01/09/2023 Active Comment on above: Take 1 capsule by [facility] daily for 7 days. [id number] 0.3 ml EPINEPHrine 1 mg/ml auto-injector (20 sources) alpha-Adrenergic Agonist, beta-Adrenergic Agonist, Catecholamine Start: 021 End: 023 EPINEPHrine (EPIPEN) 0.3 mg/0.3 mL auto-injector Indications: Bee sting allergy Use as directed 2 Each 1 07/27/2022 Active Comment on above: Use as directed fluconazole 150 mg oral tablet (1 source) Azole Antifungal Start: 022 End: take 1 tablet by mouth once daily fluconazole (DIFLUCAN) 150 mg tablet Take 1 tablet by mouth once daily for 1 day. 1 tablet 0 11/28/2021 11/29/2021 Active Comment on above: Take 1 tablet by patricia th once daily for 1 day. ibuprofen 200 mg oral tablet (20 sources) Nonsteroidal Anti-inflammatory Drug take 1 tablet by mouth every six hours as needed ibuprofen (MOTRIN) 200 mg tablet Take 200 mg by mouth every 6 hours as needed. Active Comment on above: Take 200 mg by mouth every 6 hours as needed. levocetirizine dihydrochloride 5 mg oral tablet (20 sources) Histamine-1 Receptor Antagonist Start: End: take 1 tablet by mouth once daily levocetirizine 5 mg tablet Take 1 tablet by mouth once daily. 90 tablet 1 07/22/2021 Active Comment on above: Take 1 tablet by patricia th once daily. Take 1 tablet by patricia th once daily as needed. levothyroxine sodium 0.1 mg oral tablet (20 sources) l-Thyroxine Start: End: take 1 tablet by mouth once daily levothyroxine (LEVOXYL) 100 mcg tablet Indications: Hypothyroidism, unspecified type Take 1 tablet by mouth once daily. Except none on Wednesday 30 tablet 3 12/29/2023 Active Start: 02-17-2022 take 1 tablet by patricia th once daily for thyroid dysfunction levothyroxine (LEVOXYL) 100 mcg tablet Indications: Hypothyroidism, unspecified type Take 1 tablet by mouth once daily. Take on empty stomach. For Thyroid. 30 tablet 3 02/17/2022 Active Start: 01-10-2022 End: 02-17-2022 take 1 tablet by mouth once daily for thyroid dysfunction levothyroxine (SYNTHROID) 112 mcg tablet Indications: Hypothyroidism, unspecified type Take 1 tablet by mouth once daily. Take on empty stomach. For thyroid 30 tablet 5 01/10/2022 02/17/2022 Discontinued (Dosage adjustment) Start: 10-09-2021 End: 01-10-2022 take 1 tablet by mouth once daily for thyroid dysfunction levothyroxine (SYNTHROID) 125 mcg tablet Indications: Hypothyroidism, unspecified type Take 1 tablet by mouth once daily. Take on empty stomach. For Thyroid 30 tablet 11 10/09/2021 01/10/2022 Discontinued Start: 07-22-2021 End: 10-09-2021 take 1 tablet by mouth once daily levothyroxine (SYNTHROID) 137 mcg tablet Indications: Hypothyroidism, unspecified type Take 1 tablet by mouth once daily. 90 tablet 3 07/22/2021 10/09/2021 Discontinued Comment on above: Take 1 tablet by patricia th once daily. Take 1 tablet by patricia th once daily. Take on empty stomach. For Thyroid Take 1 tablet by patricia th once daily. Take on empty stomach. For Thyroid. Take 1 tablet by patricia th once daily. Except none on Wednesday liothyronine sodium 0.025 mg oral tablet (20 sources) l-Triiodothyronin e Start: 07-16-2023 End: 10-18-2024 take 1 tablet by mouth once daily liothyronine (CYTOMEL) 25 mcg tablet Indications: Hypothyroidism, unspecified type Take 1 tablet by mouth once daily. 90 tablet 3 10/19/2023 10/18/2024 Active Start: 03-30-2023 End: 04-29-2023 take 1 tablet by mouth once daily liothyronine (CYTOMEL) 25 mcg tablet Indications: Hypothyroidism, unspecified type Take 1 tablet by mouth once daily. 90 tablet 0 03/30/2023 Active Start: 12-21-2022 End: 01-20-2023 take 1 tablet by mouth once daily liothyronine (CYTOMEL) 25 mcg tablet Indications: Hypothyroidism, unspecified type Take 1 tablet by mouth once daily. 90 tablet 0 12/21/2022 Active Start: 09-14-2022 End: 10-14-2022 take 1 tablet by mouth once daily liothyronine (CYTOMEL) 25 mcg tablet Indications: Hypothyroidism, unspecified type Take 1 tablet by mouth once daily. 90 tablet 0 09/14/2022 10/14/2022 Active Start: 06-08-2022 End: 07-08-2022 take 1 tablet by mouth once daily liothyronine (CYTOMEL) 25 mcg tablet Indications: Hypothyroidism, unspecified type Take 1 tablet by mouth once daily. 90 tablet 0 06/08/2022 Active Start: 03-09-2022 End: 04-08-2022 take 1 tablet by mouth once daily liothyronine (CYTOMEL) 25 mcg tablet Indications: Hypothyroidism, unspecified type Take 1 tablet by mouth once daily. 90 tablet 0 03/09/2022 04/08/2022 Active Start: 03-01-2022 take 1 tablet by patricia th once daily liothyronine (CYTOMEL) 25 mcg tablet Indications: Hypothyroidism, unspecified type Take 1 tablet by mouth once daily. 90 tablet 3 07/22/2021 Active Comment on above: Take 1 tablet by patricia th once daily. metFORMIN hydrochloride 500 mg oral tablet (20 sources) Biguanide Start: 03-02-20 End: 04-09-20 take 1 tablet by mouth once daily at breakfast metFORMIN (GLUCOPHAGE) 500 mg tablet Take 1 tablet by mouth daily with breakfast. 90 tablet 01/10/2024 04/09/2024 Active Comment on above: Take 1 tablet by patricia th daily with breakfast. metFORMIN hydrochloride 500 mg / SITagliptin 50 mg oral tablet (20 sources) Biguanide, Dipeptidyl Peptidase 4 Inhibitor Start: 07-26-19 End: 07-20-19 take 1 tablet by mouth once daily SITagliptin-metFORM IN (JANUMET) 50-500 mg per tablet Indications: Type 2 diabetes mellitus with complication, without long-term current use of insulin (HCC) Take 1 tablet by mouth once daily. 30 tablet 07/20/2022 07/20/2023 Active Comment on above: Take 1 tablet by patricia th once daily. montelukast 10 mg oral tablet (20 sources) Leukotriene Receptor Antagonist Start: 12-15-19 take 1 tablet by mouth once daily at bedtime montelukast (SINGULAIR) 10 mg tablet Take 1 tablet by mouth daily at bedtime. 30 tablet 11 12/14/2022 Active Start: 07-22-2021 End: 10-08-2021 take 1 tablet by mouth once daily at bedtime montelukast (SINGULAIR) 10 mg tablet Take 1 tablet by mouth daily at bedtime. 30 tablet 10/08/2021 Active Comment on above: Take 1 tablet by patricia th daily at bedtime. nitrofurantoin, macrocrystals 25 mg / nitrofurantoin, monohydrate 75 mg oral capsule (1 source) Nitrofuran Antibacterial Start: 2021 End: 2021 take 1 capsule by mouth twice daily at mealtime nitrofurantoin monohydrate and macrocrystal (MACROBID) 100 mg capsule Take 1 capsule by mouth twice daily with meals for 7 days. 14 capsule 0 03/26/2022 04/02/2022 Active Comment on above: Take 1 capsule by [facility] twice daily with meals for 7 days. perflutren lipid microspheres 1.3 mL in NaCl (PF) 0.9% 10 mL injection (DEFINITY) (20 sources) Start: 2021 End: 2022 perflutren lipid microspheres 1.3 mL in NaCl (PF) 0.9% 10 mL injection (DEFINITY) 125 ml sodium chloride 9 mg/ml prefilled syringe (20 sources) Start: 2021 End: 2022 sodium chloride 0.9 % (flush) 10 mL (BD POSIFLUSH) tirzepatide (MOUNJARO) 5 mg/0.5 mL pen injector (9 sources) Start: 2022 End: 2023 inject 5 mg by subcutaneous injection every week tirzepatide (MOUNJARO) 5 mg/0.5 mL pen injector Inject 5 mg subcutaneously one time a week. 2 mL 11 05/05/2023 05/04/2024 Active Comment on above: Inject 5 mg subcutan eously one time a week. Completed/Discontinued Medications Medication Drug Class(es) Dates Sig (Normalized) Sig (Original) aspirin 81 mg delayed release oral tablet (18 sources) Platelet Aggregation Inhibitor, Nonsteroidal Anti-inflammatory Drug Start: 12-12-2021 take 1 tablet by mouth once daily aspirin, enteric coated (ASPIRIN, ENTERIC COATED) 81 mg EC tablet Indications: Lacunar infarction (HCC) Take 1 tablet by mouth once daily. 0 12/12/2021 Active Comment on above: Take 1 tablet by [facility] once daily. mupirocin 0.02 mg/mg topical ointment (2 sources) RNA Synthetase Inhibitor Antibacterial Start: 10-28-2020 End: 10-08-2021 mupirocin (BACTROBAN) 2 % ointment Indications: Avulsion of skin of middle finger, initial encounter Apply 1 application to affected area once daily. 22 g 0 10/28/2020 10/08/2021 Discontinued Comment on above: Apply 1 application to affected area once daily. tirzepatide (MOUNJARO) 2.5 mg/0.5 mL pen injector (7 sources) Start: 03-30-2023 End: 05-05-2023 inject 2.5 mg by subcutaneous injection every week tirzepatide (MOUNJARO) 2.5 mg/0.5 mL pen injector Inject 2.5 mg subcutaneously one time a week. 2 mL 0 03/30/2023 05/05/2023 Discontinued Start: 03-30-2023 inject 2.5 mg by sub cutaneous injection every week tirzepatide (MOUNJARO) 2.5 mg/0.5 mL pen injector Inject 2.5 mg subcutaneously one time a week. 2 mL 0 03/30/2023 Active Start: 03-02-2023 End: 03-29-2023 inject 2.5 mg by subcutaneous injection every week tirzepatide (MOUNJARO) 2.5 mg/0.5 mL pen injector Inject 2.5 mg subcutaneously one time a week. 2 mL 0 03/02/2023 03/29/2023 Discontinued Comment on above: Inject 2.5 mg subcut aneously one time a week. Problems Active Problems Problem Classification Problem Date Documented Da te Episodic/Chronic Allergic reactions (1 source) Allergy to bee venom; Translations: [Bee allergy status] Episodic Bacterial infection; unspecified site (1 source) Methicillin resistant Staphylococcus aureus infection as the cause of diseases classified elsewhere; Translations: [Methicillin resistant Staphylococcus aureus infection as the cause of diseases classified elsewhere] Onset: 06-24-2021 Episodic Conditions associated with dizziness or vertigo (1 source) Dizziness; Translations: [Dizziness and giddiness] Episodic Deficiency and other anemia (1 source) Anemia; Translations: [Anemia, unspecified] Episodic Deficiency and other anemia (1 source) Iron deficiency anemia, unspecified; Translations: [Iron deficiency anemia, unspecified iron deficiency anemia type] Onset: 02-01-2024 Episodic Deficiency and other anemia (1 source) Vitamin B12 deficiency anemia, unspecified; Translations: [Anemia due to vitamin B12 deficiency, unspecified B12 deficiency type] Onset: 02-01-2024 Episodic Diabetes mellitus with complications (20 sources) Type 2 diabetes mellitus; Translations: [Type 2 diabetes mellitus with unspecified complications] Onset: 08-12-2017 Chronic Disorders of lipid metabolism (1 source) Mixed hyperlipidemia; Translations: [Mixed hyperlipidemia] 04-13-2023 Chronic Genitourinary symptoms and ill-defined conditions (2 sources) Urine looks dark; Translations: [Other abnormal findings in urine] Episodic Headache; including migraine (2 sources) Thunderclap headache; Translations: [Primary thunderclap headache] Episodic Infective arthritis and osteomyelitis (except that caused by tuberculosis or sexually transmitted disease) (1 source) Osteomyelitis, unspecified; Translations: [Osteomyelitis, unspecified] Onset: 06-24-2021 Chronic Nutritional deficiencies (1 source) Vitamin D deficiency, unspecified; Translations: [Avitaminosis D] Onset: 02-01-2024 Chronic Occlusion or stenosis of precerebral arteries (20 sources) Bilateral stenosis of carotid arteries; Translations: [Occlusion and stenosis of bilateral carotid arteries] Onset: 12-16-2021 12-16-2021 Chronic Open wounds of extremities (1 source) Open wound of lower limb; Translations: [Unspecified open wound, unspecified ankle, initial encounter] Episodic Other connective tissue disease (1 source) Tenosynovitis; Translations: [Synovitis and tenosynovitis, unspecified] Episodic Other endocrine disorders (1 source) Androgen excess; 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] Onset: 02-01-2024 Chronic Other gastrointestinal disorders (1 source) Occult blood in stools; Translations: [Other fecal abnormalities] Episodic Other gastrointestinal disorders (1 source) Stool DNA-based colorectal cancer screening positive; Translations: [Other fecal abnormalities] Episodic Other nervous system disorders (20 sources) Complex regional pain syndrome of lower limb; Translations: [Complex regional pain syndrome I of unspecified lower limb] Onset: 01-11-2007 11-03-2017 Chronic Other nervous system disorders (20 sources) Narcolepsy; Translations: [Narcolepsy without cataplexy] 12-16-2012 Chronic Other nervous system disorders (4 sources) Narcolepsy without cataplexy ; Translations: [Narcolepsy in conditions classified elsewhere without cataplexy] Chronic Other nutritional; endocrine; and metabolic disorders (1 source) Hypocalcemia; Translations: [Hypocalcemia] Onset: 02-01-2024 Chronic Other skin disorders (2 sources) Mass of scalp; Translations: [Localized swelling, mass and lump, head] Episodic Other skin disorders (1 source) Nonscarring hair loss, unspecified; Translations: [Baldness] Onset: 02-01-2024 Episodic Other upper respiratory disease (20 sources) Allergic rhinitis; Translations: [Allergic rhinitis, unspecified] Onset: 01-11-2007 Resolved: 03-11-2018 03-11-2018 Chronic Septicemia (except in labor) (1 source) Sepsis due to methicillin-sensitiv e Staphylococcus aureus; Translations: [Sepsis due to Methicillin susceptible Staphylococcus aureus] Episodic Skin and subcutaneous tissue infections (1 source) Cellulitis; Translations: [Cellulitis, unspecified] Episodic Spondylosis; intervertebral disc disorders; other back problems (20 sources) Displacement of lumbar intervertebral disc without myelopathy; Translations: [Other intervertebral disc displacement, lumbar region] Onset: 11-08-2008 Resolved: 03-11-2018 11-08-2008 Chronic Thyroid disorders (20 sources) Hypothyroidism, unspecified; Translations: [Hypothyroidism] Onset: 01-11-2007 Resolved: 06-08-2022 Chronic Past or Other Problems Problem Classification Problem Date Documented Da te Episodic/Chronic Complications of surgical procedures or medical care (14 sources) Headache following lumbar puncture; Translations: [Other reaction to spinal and lumbar puncture] Onset: 12-26-2012 Resolved: 03-11-2018 03-11-2018 Episodic Diabetes mellitus without complication (7 sources) Hyperglycemia; Translations: [Hyperglycemia, unspecified] Onset: 03-15-2017 Resolved: 04-17-2019 04-17-2019 Episodic Nausea and vomiting (7 sources) Nausea; Translations: [Nausea] Onset: 12-26-2012 Resolved: 03-11-2018 03-11-2018 Episodic Other connective tissue disease (20 sources) Fibromyalgia; Translations: [Fibromyalgia] Onset: 03-05-2009 03-05-2009 Episodic Other connective tissue disease (20 sources) Spasm; Translations: [Other muscle spasm] Resolved: 06-08-2022 12-16-2012 Episodic Other connective tissue disease (20 sources) Adhesive capsulitis of right shoulder; Translations: [Adhesive capsulitis of right shoulder] Onset: 01-20-2019 01-20-2019 Episodic Other connective tissue disease (20 sources) Calcific tendinitis of right shoulder; Translations: [Calcific tendinitis of right shoulder] Onset: 01-20-2019 01-20-2019 Episodic Other lower respiratory disease (7 sources) Cough; Translations: [Cough] Onset: 03-29-2006 Resolved: 03-11-2018 03-11-2018 Episodic Other non-traumatic joint disorders (20 sources) Chronic pain of right upper limb; Translations: [Pain in right shoulder] Onset: 01-20-2019 01-20-2019 Episodic Other screening for suspected conditions (not mental disorders or infectious disease) (8 sources) Patient encounter status; Translations: [Encounter for screening mammogram for malignant neoplasm of breast] Onset: 04-21-2023 Episodic Residual codes; unclassified (7 sources) Sleep disorder; Translations: [Sleep disorder, unspecified] Onset: 01-11-2007 Resolved: 03-11-2018 03-11-2018 Episodic Spondylosis; intervertebral disc disorders; other back problems (20 sources) Spinal stenosis of lumbar region; Translations: [Spinal stenosis, lumbar region without neurogenic claudication] Onset: 11-08-2008 Resolved: 03-11-2018 03-11-2018 Episodic Sprains and strains (7 sources) Neck sprain; Translations: [Sprain of joints and ligaments of unspecified parts of neck, initial encounter] Onset: 11-08-2008 Resolved: 03-11-2018 03-11-2018 Episodic Results Test Name Value Interpretation Reference Range Facility 25(OH)D3 SerPl-ncon 2023 25-hydroxyvitamin D3 [Mass/Vol] 29.4 ng/mL Low 31.0-80.0 [facility] Comment on above: Order Comment: Marilin alejandro Type: BLOOD SPECIMEN Ordering Facility: [facility] Address: [address] [place] [address] [address] [place] [id number] Performed By: #### 2 498-4, 2131-9, 6-4, 2730-8 #### [facility] [place] [facility] CLIA [id number] [address] [place] [address] [place] Ferritin SerPl-mCncon 2023 Ferritin [Mass/Vol] 163.0 ng/mL Normal 14.7-205.1 [facility] Comment on above: Order Comment: Marilin alejandro Type: BLOOD SPECIMEN Ordering Facility: [facility] Address: [address] [place] [address] [place] [address] Performed By: #### 2 498-4, 2131-9, 2275-4, 2730-8 #### [facility] [place] [facility] CLIA [id number] [address] [place] [id number] [place] Iron SerPl-mCncon 02-01-2024 Iron [Mass/Vol] 91 ug/dL Normal 41-186 [facility] Comment on above: Order Comment: Speci men Type: BLOOD SPECIMEN Ordering Facility: [facility] Address: [address] [place] [address] Performed By: #### 2 498-4, 2131-9, 2275-4, 2730-8 #### [facility] [place] [facility] CLIA [id number] [address] [place] [address] [place] PTH-Intact SerPl-mCncon 01-22 Parathyrin.intact [Mass/Vol] 19 pg/mL Normal 15-65 [facility] Comment on above: Order Comment: Speci men Type: BLOOD SPECIMEN Ordering Facility: [facility] Address: [address] [place] [address] Performed By: #### 2 498-4, 2131-9, 2275-4, 2730-8 #### [facility] [place] [facility] CLIA [id number] [address] [place] [address] [place] Vit B12 SerPl-mCncon 024 Cobalamin (Vitamin B12) [Mass/Vol] 1212 pg/mL Normal 232-1245 [facility] Comment on above: Order Comment: Speci men Type: BLOOD SPECIMEN Ordering Facility: [facility] Address: [address] [place] [address] Performed By: #### 2 498-4, 2131-9, 2275-4, 2730-8 #### [facility] [place] [facility] CLIA [id number] [address] [place] [address] [place] HBA1C (OUTSIDE)on 01-20-2024 HbA1c (Bld) [Mass fraction] 12.8 % [facility] Comment on above: @ endo [facility] CNPNon 11-01-2023 CNPN Telephone (FAMPWS) DILEEPPHYLICIA ([id number]) 1965 F Date Time Provider Department 11/01/23 [facility] KELLEY [facility] During your visit today, we recorded the following information about you: Yris Kelley APRN.CNP 11/01/2023 9:14 AM Signed Can we please let patient know that I received her lab results. Her A1C went up to 11.2, which is too high. Has she been taking the metformen and the mounjaro? Any missed doses? SHANTE Nogueira Barbara, LPN 11/01/2023 1:37 PM Signed Patient notified of results, verbalizes understanding of instructions. Pt stated she is not taking the Mounjaro to expensive. And T3 and T4 labs are off. JACOBO Bennett Christy, APRN.CNP 11/01/2023 3:21 PM Signed The thyroid labs are stable. Her TSH was within normal, and her free T4 was stable. She is on T3, so that is expected to be elevated. How long has she been off the mounjaro? It looks like the dose was increased in April. We need to get her on something else, as this is too high. We can try another injectable or a pill and see if it has better coverage. Jose De Jesus Lopez LPN 11/01/2023 3:57 PM Signed TC to pt, notified of provider response. Pt states she was only on Mounjaro for the 1st 2 months and stopped d/t cost. She never picked up the increased dose. Pt states ok, I think I'm going to go back to Dr. Osman . (Endo in [place].) JACOBO Kat Christy, APRN.CNP 11/01/2023 5:58 PM Signed Referral placed. Please help schedule. Yris Kelley APRN.Jose De Jesus Larson LPN 11/01/2023 6:28 PM Signed Referral faxed. Jose De Jesus Lopez LPN Allergies As of Date: 11/01/2023 Noted Allergy Reaction BEES 01/11/2007 CATS 01/11/2007 CLINDAMYCIN 10/01/2008 4 - Hives DOGS 01/11/2007 DUST 01/11/2007 DUST MITES 01/11/2007 LATEX 01/11/2007 LYRICA (PREGABALIN) 01/11/2009 7 - Swelling MOLD 02/24/2007 VANCOMYCIN 11/22/2021 14 - Other: See Comments Date Reviewed: 04/13/2023 Reviewed by: Jose De Jesus Lopez LPN - Fully Assessed Reason for Visit: Results [95] Primary Visit Diagnosis:Type 2 diabetes mellitus with complication, without long-term current use of insulin (HCC) [E11.8] Order(s):CONSULT TO ENDOCRINOLOGY [7273] Order #: [id number]: 1 FUTURE Prescriptions as of 11/01/2023 - baclofen 10 mg tablet TAKE 1 TABLET BY MOUTH THREE TIMES DAILY NEEDED FOR MUSCLE SPASM. DO NOT USE WITH FLEXERIL - liothyronine (CYTOMEL) 25 mcg tablet Take 1 tablet by mouth once daily. - metFORMIN (GLUCOPHAGE) 500 mg tablet Take 1 tablet by mouth daily with breakfast. - armodafinil (NUVIGIL) 150 mg tab Take 1 tablet by mouth two times a day for 90 days. - levothyroxine (LEVOXYL) 100 mcg tablet Take 1 tablet by mouth once daily. Except none on Wednesday - tirzepatide (MOUNJARO) 5 mg/0.5 mL pen injector Inject 5 mg subcutaneously one time a week. - montelukast (SINGULAIR) 10 mg tablet Take 1 tablet by mouth daily at bedtime. - EPINEPHrine (EPIPEN) 0.3 mg/0.3 mL auto-injector Use as directed - blood sugar diagnostic (BLOOD GLUCOSE TEST) test strip Test blood sugar(s) 1 times daily. Dx: Type 2 DM - Uncontrolled E11.65 Insulin: No - Lancets lancets Test blood sugar(s) 1 times daily. Dx: Type 2 DM - Uncontrolled E11.65 Insulin: No - Blood-Glucose Meter 1 Each as directed. - levocetirizine 5 mg tablet Take 1 tablet by mouth once daily. - ibuprofen (MOTRIN) 200 mg tablet Take 200 mg by mouth every 6 hours as needed. Problem List As Of Date 11/01/2023 Noted Resolved Cough [R05.9] 03/29/2006 03/11/2018 Hypothyroidism [E03.9] 01/11/2007 Reflex sympathetic dystrophy of lower limb [G90*01/11/2007 Allergic rhinitis, cause unspecified [J30.9] 01/11/2007 03/11/2018 Sleep disorder [G47.9] 01/11/2007 03/11/2018 Spinal stenosis, lumbar region, without neuroge*11/08/2008 Postlaminectomy syndrome, lumbar region [M96.1] 11/08/2008 03/11/2018 Thoracic or lumbosacral neuritis or radiculitis*11/08/2008 03/11/2018 Degeneration of lumbar or lumbosacral intervert*11/08/2008 03/11/2018 Lumbosacral spondylosis without myelopathy [M47*11/08/2008 03/11/2018 LUMBAR DISC DISPLACEMENT [M51.26] 11/08/2008 Brachial neuritis or radiculitis NOS [M54.12] 11/08/2008 03/11/2018 Sprain of neck [S13.9XXA] 11/08/2008 03/11/2018 Cervicalgia [M54.2] 11/08/2008 03/11/2018 Fibromyalgia [M79.7] 03/05/2009 Spinal stenosis, lumbar region, with neurogenic*12/06/2012 03/11/2018 Other specified acquired hypothyroidism [E03.8] 06/08/2022 Muscle spasm [M62.838] 06/08/2022 Narcolepsy [G47.419] Allergic rhinitis [J30.9] Nausea [R11.0] 12/26/2012 03/11/2018 Spinal headache [G97.1] 12/26/2012 03/11/2018 Postoperative CSF leak [G97.82, G96.00] 01/24/2013 03/11/2018 Hyperglycemia [R73.9] 03/15/2017 04/17/2019 Type 2 diabetes mellitus with complication, wit*08/12/2017 Adhesive capsulitis of right shoulder [M (more content not included)... Normal [facility] HbA1c (Bld)on 10-28-2023 Average glucose Estimated from glycated hemoglobin (Bld) [Mass/Vol] 275 mg/dL Normal [facility] Comment on above: Order Comment: Marilin alejandro Type: BLOOD SPECIMEN Ordering Facility: [facility] Address: [facility] [place] [address] Result Comment: eAG: (Estimated average glucose) is a calculated value from HgbA1c and is specialty sales representative of the average blood glucose level in the last 2-3 month period. Performed By: #### 2 498-4, 2131-9, 2275-4, 2730-12 #### [facility] [place] [facility] CLIA [id number] [address] [place] [address] [place] HbA1c (Bld) [Mass fraction] 11.2 % High 4.3-5.6 [facility] Comment on above: Order Comment: Marilin alejandro Type: BLOOD SPECIMEN Ordering Facility: [facility] Address: [facility] [place] [address] Result Comment: Amer [place] Diabetes Association guidelines indicate that patients with HgbA1c in the range 5.7-6.4% are at increased risk for development of diabetes, and intervention by lifestyle modification may be beneficial. HgbA1c greater or equal to 6.5% is considered diagnostic of diabetes. Performed By: #### 2 498-4, 9, 2275-4, 8 #### [facility] [place] [facility] CLIA [id number] [address] [place] [address] [place] T3 SerPl-mCncon 10-28-2023 T3 [Mass/Vol] 192 ng/dL High 79-165 [facility] Comment on above: Order Comment: Marilin alejandro Type: BLOOD SPECIMEN Ordering Facility: [facility] Address: [facility] [place] [address] Performed By: #### 2 498-4, 2131-9, 2275-4, 2730-8 #### [facility] [place] [facility] CLIA [id number] [address] [place], [place] [address] [place] T4 Free SerPl-mCncon 024 Free T4 [Mass/Vol] 0.8 ng/dL Low 0.9-1.7 [facility] Comment on above: Order Comment: Speci men Type: BLOOD SPECIMEN Ordering Facility: [facility] Address: [facility] [address] [place] [id number] Performed By: #### 2 498-4, 2132-9, 2276-4, 2731-8 #### [facility] [place] [facility] CLIA [id number] [address] [place], [place] [address] [place] TSH SerPl-aCncon 10-28-2023 TSH Qn 1.200 m[IU]/L Normal 0.270-4.20 0 [facility] Comment on above: Order Comment: Speci men Type: BLOOD SPECIMEN Ordering Facility: [facility] Address: [address] [place] [address] [place] [address] Performed By: #### 2 498-4, 2-9, 6-4, 2731-8 #### [facility] [place] [facility] CLIA [id number] [address] [place], [place] [address] [facility] [place] CNCOon 04-21-2023 CNCO HNO ID: [id number] Author: Coordinator, Mammography Service: ? Author Type: Physician Type: Letter Filed: 04/22/2023 11:32 PM Note Text: April 21, 2023 PID: [id number] Phylicia Falk [address] [facility] [address] [place], [place] [address] Dear Ms. Falk, We are pleased to inform you that the results of your recent breast imaging exam on 04/21/2023 are normal. Early detection of cancer is very important. We also understand recommendations regarding breast cancer screening are controversial. Please discuss with your primary care provider which strategy is best for you and whether a mammogram is right for you. Your imaging studies and report will be kept on file at [facility] as part of your permanent medical record and are available for your continuing care. Thank you for allowing us to help in meeting your health care needs. Sincerely, Dr. Madison Interpreting Radiologist [facility] (Normal over 40) Normal [facility] SCREENINGon 04-21-2023 [facility] SCREENING * * *Final Report* * * DATE OF EXAM: Apr 21 2023 9:27AM WRW [id number] - [facility] SCREENING / PROCEDURE REASON: Encounter for screening mammogram for breast cancer * * * * Physician Interpretation * * * * RESULT: #[id number] - [facility] SCREENING BILATERAL DIGITAL SCREENING MAMMOGRAM WITH CAD: 04/21/2023 HISTORY: Encounter For Screening Mammogram For Breast Cancer. RESULT: TECHNIQUE: The study was acquired using full field digital technology and interpreted from soft copy. Current study was also evaluated with a Computer Aided Detection (CAD). Comparison is made to exams dated: 11/13/2021 mammogram, 10/07/2020 mammogram - [facility], 11/07/2018 mammogram, and 11/03/2017 mammogram - [facility]. There are scattered areas of fibroglandular density. No significant masses, calcifications, or other findings are seen in either breast. There has been no significant interval change. IMPRESSION: NEGATIVE There is no mammographic evidence of malignancy. A 1 year screening mammogram is recommended. Alexi Madison M.D. fa/penrad:04/21/2023 10:51:27 Protocol Manager(s): RT Karla(Neymar)(M), [facility] letter sent: Normal over 40 Mammogram BI-RADS: 1 Negative Multiple national specialty organizations have released breast cancer screening guidelines for women at average risk for developing breast cancer - guidelines that are based on both evidence and opinion, yet differ on when to start and how often to screen for breast cancer. With representation from Breast Imaging, Internal Medicine, Women's Health, Family Medicine, and Medical/Surgical Oncology, the [facility] has carefully reviewed the data and reached the following consensus: 1) All women should engage in shared decision-making with their providers to decide when to start and how often to screen; 2) All women should have the opportunity to start screening mammography at age 40; 3) For women ages 45-55, we recommend annual screening mammograms; 4) For women ages 55 and over, we support both the transition from an annual to a biennial interval if this aligns more with patient's values and preferences, or continuation with annual screening; 5) All women should discuss with their providers when to stop screening mammograms. Histology Technician: Dima Transcribe Date/Time: Apr 21 2023 8:57A Dictated by: ALEXI MADISON MD This examination was interpreted and the report reviewed and electronically signed by: ALEXI MADISON MD on Apr 21 2023 10:51AM EST [id number] Normal [facility] CNOVon 04-13-2023 CNOV Office Visit (FAMPWS ) FALKPHYLICIA ([id number]) 1965 F Date Time Provider Department 04/13/23 8:00 AM YRIS KELLEY During your visit today, we recorded the following information about you: Pulse Respiration Blood pressure 98/minute 16/minute 104/72 Yris Kelley APRN.PRELOAD SUPERVISOR 04/13/2023 12:35 PM Signed This is a 57 year old female who presents today with: Patient presents with: 6 Month Exam HISTORY OF PRESENT ILLNESS: Phylicia Falk is a 57 year old female. Patient presents with: 6 Month Exam Pt presents today for 6 month follow-up. DM: Reports overall feeling well. Medication side effects: No. Home sugar checks: typically checks regularly. 195 today. Hypoglycemic spells: can feel lows about twice a week (doesn't check). Watching diet: Yes. Unexpected weight loss: No. Polyuria, polydipsia: No. Vision Changes: No. Foot lesions or numbness or pain: hasn't had feeling from knees down d/t back problems. HYPOTHYROID: Patient is compliant with medications: Yes Patient has changes in energy: No Patient has changes in hair or skin: No Patient has temperature intolerance: No Patient has weight changes: No Narcolepsy. Nuvigil working well. PAST MEDICAL HISTORY: 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 PICC LINE INSERT/CONSULT 01/27/2013 REPAIR OF ANKLE FRACTURE Right 04/2017 TONSILLECTOMY AND ADENOIDECTOMY AGE 11/> also took uvula ALLERGIES Bees, Cats, Clindamycin, Dogs, Dust, Dust Mites, Latex, Lyrica [Pregabalin], Mold, and Vancomycin MEDICATIONS Current Outpatient Medications Medication Sig liothyronine (CYTOMEL) 25 mcg tablet Take 1 tablet by mouth once daily. metFORMIN (GLUCOPHAGE) 500 mg tablet Take 1 tablet by mouth daily with breakfast. tirzepatide (MOUNJARO) 2.5 mg/0.5 mL pen injector Inject 2.5 mg subcutaneously one time a week. levothyroxine (LEVOXYL) 100 mcg tablet Take 1 tablet by mouth once daily. Except none on Wednesday montelukast (SINGULAIR) 10 mg tablet Take 1 tablet by mouth daily at bedtime. armodafinil (NUVIGIL) 150 mg tab Take 1 tablet by mouth twice daily for 90 days. baclofen (LIORESAL) 10 mg tablet TAKE 1 TABLET BY MOUTH THREE TIMES DAILY NEEDED FOR MUSCLE SPASM. DO NOT USE WITH FLEXERIL EPINEPHrine (EPIPEN) 0.3 mg/0.3 mL auto-injector Use as directed blood sugar diagnostic (BLOOD GLUCOSE TEST) test strip Test blood sugar(s) 1 times daily. Dx: Type 2 DM - Uncontrolled E11.65 Insulin: No Lancets lancets Test blood sugar(s) 1 times daily. Dx: Type 2 DM - Uncontrolled E11.65 Insulin: No Blood-Glucose Meter 1 Each as directed. Blood-Glucose Meter Use as directed levocetirizine 5 mg tablet Take 1 tablet by mouth once daily. ibuprofen (MOTRIN) 200 mg tablet Take 200 mg by mouth every 6 hours as needed. No current facility-administered medications for this visit. FAMILY HISTORY Problem Relation Age of Onset other (endometriosis) Mother hysterectomy Cancer Father skin Seizures Father Stroke Father other (parkinson's disease) Father Alzheimer's Disease Father Seizures Brother Breast Cancer Maternal Grandmother Cervical Cancer Maternal Grandmother Social History Tobacco Use Smoking status: Former Packs/day: 0.10 Years: 9.00 Additional pack years: 0.00 Total pack years: 0.90 Types: Cigarettes Quit date: 10/28/1989 Years since quittin.4 Smokeless tobacco: Never Vaping Use Vaping Use: Never used Substance Use Topics Alcohol use: Yes Comment: 6-10 times a year Drug use: No EXAM: BP 104/72 Pulse 98 Resp 16 LMP 07/23/2016 (Exact Date) SpO2 96% PHYSICAL EXAM: General Appearance: Well appearing, alert, in no acute distress, well-hydrated, well nourished. Skin: Skin color, texture, turgor normal, no suspicious rashes or lesions. Head: Normocephalic, no masses, lesions, tenderness or abnormalities. Eyes: Anicteric sclera. Extraocular movements are intact. . Neck: Supple, no adenopathy; thyroid symmetric, normal size, no bruits. Lungs: Lungs clear to auscultation. No wheezing, rhonchi, rales.. Heart: RRR without murmur, gallop, or rubs. No ectopy. Extremities: No deformities, edema, skin discoloration, clubbing or cyanosis. Good capillary refill. . Neurologic: Gait normal. ASSESSMENT/PLAN: 1. Type 2 diabetes mellitus with complication, without long-term (more content not included)... Normal [facility] PAIN PANEL, UR QUANTon 04-13 3-Sfxuctrtdr-2,5-D imethyl-3,3-Diphen ylpyrrolidine (EDDP) Confirm (U) [Mass/Vol] <6 Normal <6 [facility] Comment on above: Order Comment: Speci men Type: BLOOD SPECIMEN Ordering Facility: [facility] Address: [address] [place] [address] [place] [address] Result Comment: EDDP is a metabolite of methadone. Performed By: #### 2 498-4, 2132-9, 2276-4, 2731-8 #### [facility] [place] [facility] CLIA [id number] [address] [place] [address] [place] 6-Monoacetylmorphi ne (6-BALTAZAR) (U) [Mass/Vol] <5 Normal <5 [facility] Comment on above: Order Comment: Speci men Type: BLOOD SPECIMEN Ordering Facility: [facility] Address: [facility] [place] [address] Result Comment: 6-MA M (6-monoacetylmorphine, also known as 6-acetylmorphine) is a unique metabolite of heroin. Presence of 6-BALTAZAR indicates use of heroin. 6-BALTAZAR is further metabolized to morphine and absence of 6-BALTAZAR does not rule out the use of heroin. Performed By: #### 2 498-4, 2131-9, 2275-08, 2730-12 #### [facility] [place] [facility] CLIA [id number] [address] [place] [address] [place] Amphetamine Confirm (U) [Mass/Vol] <5 Normal <5 [facility] Comment on above: Order Comment: Speci men Type: BLOOD SPECIMEN Ordering Facility: [facility] Address: [address] [place] [address] [place] [address] Performed By: #### 2 498-4, 9, 2275-08, 2730-12 #### [facility] [place] [facility] CLIA [id number] [address] [place] [address] [place] Benzoylecgonine Confirm (U) [Mass/Vol] <24 Normal <24 [facility] Comment on above: Order Comment: Speci men Type: BLOOD SPECIMEN Ordering Facility: [facility] Address: [address] [place] [address] [place] [address] Result Comment: Braulio oylecgonine is a metabolite of cocaine. Performed By: #### 2 498-4, 9, 2275-08, 2730-12 #### [facility] [place] [facility] CLIA [id number] [address] [place] [address] [place] Buprenorphine (U) [Mass/Vol] <20 Normal <20 [facility] Comment on above: Order Comment: Speci men Type: BLOOD SPECIMEN Ordering Facility: [facility] Address: [address] [place] [address] Performed By: #### 2 498-4, 9, 4, 8 #### [facility] [place] [facility] CLIA [id number] [address] [address] [place] Cannabinoids Confirm (U) [Mass/Vol] <16 Normal <16 [facility] Comment on above: Order Comment: Speci men Type: BLOOD SPECIMEN Ordering Facility: [facility] Address: [facility] [place] [address] Result Comment: Tetr ahydrocannabinol carboxylic acid (THCA) is a metabolite of pznfo-6-iyohcmlwzgbdhanoujvp which is the main active component of marijuana. Performed By: #### 2 498-4, 9, 4, 8 #### [facility] [place] [facility] CLIA [id number] [address] [place] [id number] [place] Codeine Confirm (U) [Mass/Vol] <11 Normal <11 [facility] Comment on above: Order Comment: Speci men Type: BLOOD SPECIMEN Ordering Facility: [facility] Address: [facility] [place] [address] Performed By: #### 2 498-4, 9, 4, 8 #### [facility] [place] [facility] CLIA [id number] [address] [address] [place] Dihydrocodeine Confirm (U) [Mass/Vol] <5 Normal <5 [facility] Comment on above: Order Comment: Speci men Type: BLOOD SPECIMEN Ordering Facility: [facility] Address: [facility] [place] [address] Performed By: #### 2 498-4, 9, 2275-4, 8 #### [facility] [place] [facility] CLIA [id number] [address] [address] [place] fentaNYL Confirm (U) [Mass/Vol] <6 Normal <6 [facility] Comment on above: Order Comment: Speci men Type: BLOOD SPECIMEN Ordering Facility: [facility] Address: [facility] [place] [address] Performed By: #### 2 498-4, 9, 4, 8 #### [facility] [place] [facility] CLIA [id number] [address] [place] [address] [place] HYDROcodone Confirm (U) [Mass/Vol] <8 Normal <8 [facility] Comment on above: Order Comment: Speci men Type: BLOOD SPECIMEN Ordering Facility: [facility] Address: [address] [place] [address] [place] [address] Result Comment: Hydr ocodone is a metabolite of dihydrocodeine. Performed By: #### 2 498-4, 9, 2275-08, 2730-12 #### [facility] [place] [facility] CLIA [id number] [address] [place] [address] [place] HYDROmorphone Confirm (U) [Mass/Vol] <5 Normal <5 [facility] Comment on above: Order Comment: Speci men Type: BLOOD SPECIMEN Ordering Facility: [facility] Address: [facility] [place] [address] Result Comment: Hydr omorphone is a metabolite of hydrocodone. Performed By: #### 2 498-4, 2132-01, 2275-08, 2730-12 #### [facility] [place] [facility] CLIA [id number] [address] [place], [place] [address] [place] Methadone Confirm (U) [Mass/Vol] <16 Normal <16 [facility] Comment on above: Order Comment: Speci men Type: BLOOD SPECIMEN Ordering Facility: [facility] Address: [facility] [place] [address] Performed By: #### 2 498-4, 9, 2275-08, 2730-12 #### [facility] [place] [facility] CLIA [id number] [address] [address] [place] Methamphetamine Confirm (U) [Mass/Vol] <8 Normal <8 [facility] Comment on above: Order Comment: Speci men Type: BLOOD SPECIMEN Ordering Facility: [facility] Address: [facility] [place] [address] Performed By: #### 2 498-4, 9, 2275-08, 8 #### [facility] [place] [facility] CLIA [id number] [address] [address] [place] Morphine Confirm (U) [Mass/Vol] <10 Normal <10 [facility] Comment on above: Order Comment: Speci men Type: BLOOD SPECIMEN Ordering Facility: [facility] Address: [address] [place] [address] [place] [address] Result Comment: Morp luba is a metabolite of codeine and heroin. Performed By: #### 2 498-4, 9, 2275-08, 8 #### [facility] [place] [place] [id number] [address] [place] [address] [place] Norbuprenorphine (U) [Mass/Vol] <20 Normal <20 [facility] Comment on above: Order Comment: Speci men Type: BLOOD SPECIMEN Ordering Facility: [facility] Address: [address] [place] [address] [place] [address] Result Comment: Norb uprenorphine is the primary active metabolite of buprenorphine. Performed By: #### 2 498-4, 9, 2275-08, 8 #### [facility] CLIA [id number] [address] [place] [id number] [place] Norfentanyl Confirm (U) [Mass/Vol] <6 Normal <6 [facility] Comment on above: Order Comment: Speci men Type: BLOOD SPECIMEN Ordering Facility: [facility] Address: [address] [place] [address] [place] [address] Result Comment: Norf entanyl is a metabolite of fentanyl. Performed By: #### 2 498-4, 9, 2275-08, 2730-12 #### [facility] CLIA [id number] [address] [place] [address] [place] Nortramadol (U) [Mass/Vol] <20 Normal <20 [facility] Comment on above: Order Comment: Speci men Type: BLOOD SPECIMEN Ordering Facility: [facility] Address: [address] [place] [address] [place] [address] Result Comment: Desm ethyltramadol is a metabolite of tramadol. Performed By: #### 2 498-4, 2132-01, 2275-08, 2730-12 #### [facility] [place] [facility] CLIA [id number] [address] [place] [address] [place] NOTE,UR PAIN ZAMAN Normal [facility] Comment on above: Order Comment: Speci men Type: BLOOD SPECIMEN Ordering Facility: [facility] Address: [address] [place] [address] [place] [address] Result Comment: This test is for medical use only. This test was developed and its performance characteristics determined by [facility] [place] (-[facility]). It has not been cleared or approved by the FDA. -[facility] is regulated under CLIA as qualified to perform high-complexity testing. This test is used for clinical purposes. It should not be regarded as investigational or for research. Performed By: #### 2 498-4, 9, 2275-08, 2730-12 #### [facility] [place] [facility] CLIA [id number] [address] [id number] [place] oxyCODONE Confirm (U) [Mass/Vol] <10 Normal <10 [facility] Comment on above: Order Comment: Speci men Type: BLOOD SPECIMEN Ordering Facility: [facility] Address: [address] [place] [address] [place] [address] Performed By: #### 2 498-4, 2132-01, 2275-08, 8 #### [facility] [place] [facility] CLIA [id number] [address] [id number] [place] oxyMORphone Confirm (U) [Mass/Vol] <5 Normal <5 [facility] Comment on above: Order Comment: Speci men Type: BLOOD SPECIMEN Ordering Facility: [facility] Address: [address] [place] [address] [place] [address] Result Comment: Oxym orphone is a metabolite of oxycodone. Performed By: #### 2 498-4, 9, 2275-4, 2730-8 #### [facility] [place] [facility] [place] [id number] [address] [place] [address] [place] traMADol Confirm (U) [Mass/Vol] <25 Normal <25 [facility] Comment on above: Order Comment: Speci men Type: BLOOD SPECIMEN Ordering Facility: [facility] Address: [address] [place] [address] [place] [address] Performed By: #### 2 498-4, 2131-9, 2275-4, 2730-8 #### [facility] [place] [facility] [place] [id number] [address] [place] [address] [place] SPECIMEN VALIDITY, URINEon 06-13-2022 CHROMATE,URINE <10 Normal <50 [facility] Comment on above: Order Comment: Speci men Type: BLOOD SPECIMEN Ordering Facility: [facility] Address: [facility] [place] [address] Performed By: #### 2 498-4, 2131-9, 2275-4, 2730-8 #### [facility] [place] [facility] [place] [id number] [address] [place] [address] [place] CREATININE,URINE 263.6 mg/dL Normal 20.0-300.0 [facility] Comment on above: Order Comment: Speci men Type: BLOOD SPECIMEN Ordering Facility: [facility] Address: [address] [place] [address] [address] [place] [id number] Performed By: #### 2 498-4, 9, 2275-4, 2730-8 #### [facility] [place] [facility] CLIA [id number] [address] [address] [place] NITRITES,URINE <50 Normal <500 [facility] Comment on above: Order Comment: Speci men Type: BLOOD SPECIMEN Ordering Facility: [facility] Address: [facility] [place] [address] Performed By: #### 2 498-4, 9, 2275-4, 2730-8 #### [facility] [place] [facility] CLIA [id number] [address] [place], [place] [id number] [place] OXIDANTS,URINE <38 Normal <200 [facility] Comment on above: Order Comment: Speci men Type: BLOOD SPECIMEN Ordering Facility: [facility] Address: [facility] [address] [place] [id number] Performed By: #### 2 498-4, 9, 4, 2730-8 #### [facility] [place] [facility] CLIA [id number] [address] [place], [place] [address] [place] pH (U) 5.6 [pH] Normal 4.5-8.0 [facility] Comment on above: Order Comment: Speci men Type: BLOOD SPECIMEN Ordering Facility: [facility] Address: [facility] [place] [address] Performed By: #### 2 498-4, 9, 4, 8 #### [facility] [place] [facility] CLIA [id number] [address] [address] [place] SPEC GRAVITY,UR 1.023 Normal 1.003-1.03 5 [facility] Comment on above: Order Comment: Speci men Type: BLOOD SPECIMEN Ordering Facility: [facility] Address: [facility] [place] [address] Performed By: #### 2 498-4, 9, 2275-4, 2730-8 #### [facility] [place] [facility] CLIA [id number] [address] [id number] [place] SPECIMEN VALIDITY QUALITY Specimen quality results within acceptable limits Normal [facility] Comment on above: Order Comment: Speci men Type: BLOOD SPECIMEN Ordering Facility: [facility] Address: [address] [place] [address] [place] [address] Performed By: #### 2 498-4, 9, 4, 8 #### [facility] [place] [facility] CLIA [id number] [address] [place] [address] [place] TOX SCREEN ROUT URon 11-21-2 023 Amphetamines Confirm (U) [Mass/Vol] Negative Negative [facility] Barbiturates Urine Negative Negative [facility] Benzodiazepines Urine Negative Negative [facility] Cannabinoids Screen Ql (U) Negative Negative [facility] Cocaine Ql (U) Negative Negative [facility] Ethanol (U) [Mass/Vol] <11 mg/dL [facility] Opiates Screen Ql (U) Negative Negative [facility] oxyCODONE cutoff Screen (U) [Mass/Vol] Negative Negative [facility] Phencyclidine Ql (U) Negative Negative [facility] Amphetamines Confirm (U) [Mass/Vol] Negative Normal Negative [facility] Comment on above: Order Comment: Speci men Type: BLOOD SPECIMEN Ordering Facility: [facility] Address: [address] [place] [address] [place] [address] Result Comment: Cuto ff threshold at 1000 ng/mL. Performed By: #### 2 498-4, 9, 2275-4, 2730-8 #### [facility] [place] [facility] CLIA [id number] [address] [place] [address] [place] BARBITURATES, URINE Negative Normal Negative [facility] Comment on above: Order Comment: Speci men Type: BLOOD SPECIMEN Ordering Facility: [facility] Address: [address] [place] [address] [place] [address] Result Comment: Cuto ff threshold at 200 ng/mL. Performed By: #### 2 498-4, 2131-9, 2275-4, 2730-8 #### [facility] [place] [facility] CLIA [id number] [address] [place] [address] [place] BENZODIAZEPINES, UR Negative Normal Negative [facility] Comment on above: Order Comment: Speci men Type: BLOOD SPECIMEN Ordering Facility: [facility] Address: [address] [place] [address] [place] [address] Result Comment: Cuto ff threshold at 200 ng/mL. Performed By: #### 2 498-4, 2131-9, 2275-4, 2730-8 #### [facility] [place] [facility] CLIA [id number] [address] [place] [address] [place] Cannabinoids Screen Ql (U) Negative Normal Negative [facility] Comment on above: Order Comment: Speci men Type: BLOOD SPECIMEN Ordering Facility: [facility] Address: [address] [place] [address] [place] [address] Result Comment: Cuto ff threshold at 50 ng/mL. Performed By: #### 2 498-4, 2131-9, 2275-4, 2730-8 #### [facility] [place] [facility] CLIA [id number] [address] [place] [address] [place] Cocaine Ql (U) Negative Normal Negative [facility] Comment on above: Order Comment: Speci men Type: BLOOD SPECIMEN Ordering Facility: [facility] Address: [address] [place] [address] [place] [address] Result Comment: Cuto ff threshold at 300 ng/mL. Performed By: #### 2 498-4, 2131-9, 2275-4, 2730-8 #### [facility] [place] [facility] CLIA [id number] [address] [place] [address] [place] Ethanol (U) [Mass/Vol] <11 Normal <11 [facility] Comment on above: Order Comment: Speci men Type: BLOOD SPECIMEN Ordering Facility: [facility] Address: [address] [place] [address] Performed By: #### 2 498-4, 9, 2275-08, 2730-12 #### [facility] [place] [facility] CLIA [id number] [address] [place] [address] [place] Opiates Screen Ql (U) Negative Normal Negative [facility] Comment on above: Order Comment: Speci men Type: BLOOD SPECIMEN Ordering Facility: [facility] Address: [facility] [place] [address] Result Comment: Cuto ff threshold at 300 ng/mL. Performed By: #### 2 498-4, 9, 2275-08, 2730-12 #### [facility] [place] [facility] CLIA [id number] [address] [place] [address] [place] oxyCODONE cutoff Screen (U) [Mass/Vol] Negative Normal Negative [facility] Comment on above: Order Comment: Speci men Type: BLOOD SPECIMEN Ordering Facility: [facility] Address: [address] [place] [address] [place] [address] Result Comment: Cuto ff threshold at 100 ng/mL. Performed By: #### 2 498-4, 9, 2275-08, 2730-12 #### [facility] [place] [facility] CLIA [id number] [address] [place] [address] [place] Phencyclidine Ql (U) Negative Normal Negative [facility] Comment on above: Order Comment: Speci men Type: BLOOD SPECIMEN Ordering Facility: [facility] Address: [address] [place] [address] [place] [address] Result Comment: Cuto ff threshold at 25 ng/mL. Performed By: #### 2 498-4, 9, 2275-08, 2730-12 #### [facility] [place] [facility] CLIA [id number] [address] [place] [address] [place] HbA1c (Bld)on 04-02-2023 Average glucose Estimated from glycated hemoglobin (Bld) [Mass/Vol] 177 mg/dL Normal [facility] Comment on above: Order Comment: Marilin alejandro Type: BLOOD SPECIMEN Ordering Facility: [facility] Address: [address] [place] [address] [place] [address] Result Comment: eAG: (Estimated average glucose) is a calculated value from HgbA1c and is specialty sales representative of the average blood glucose level in the last 2-3 month period. Performed By: #### 2 498-4, 2131-9, 2275-, 2730-12 #### [facility] [place] [facility] CLIA [id number] [address] [place] [address] [place] HbA1c (Bld) [Mass fraction] 7.8 % High 4.3-5.6 [facility] Comment on above: Order Comment: Marilin alejandro Type: BLOOD SPECIMEN Ordering Facility: [facility] Address: [address] [place], [place] [address] [address] Result Comment: [place] Diabetes Association guidelines indicate that patients with HgbA1c in the range 5.7-6.4% are at increased risk for development of diabetes, and intervention by lifestyle modification may be beneficial. HgbA1c greater or equal to 6.5% is considered diagnostic of diabetes. Performed By: #### 2 498-4, 2131-9, 2275-4, 2730-12 #### [facility] [place] [facility] CLIA [id number] [address] [place] [address] [place] Ul[place] 03-02-2023 [facility] (FAMWS[facility] PHYLICIA FALK ([id number]) 1965 F Date Time Provider Department 03/02/23 CUONG TRUJILLO [facility] During your visit today, we recorded the following information about you: Sharyn Hurt Ma 03/03/2023 8:14 AM Addendum Received PA request for Nuvigil and requested PA questionnaire. Spoke to patient who advised new insurance is needing PA completed and aware will be notified after insurance makes decision Patient aware last sleep test was 2010 and if denied will need to get back in with neurology. Patient declined she does not want to go through hassle of seeing more providers and sleepy test. Sharyn Guaman Ma, Ma 03/05/2023 7:37 AM Signed PA for Nuvigil was approved and patient notified through [facility] Anahi Kamara Ma, LPN 03/05/2023 10:21 AM Signed Edwin with [employer] called with authorization numbers for approvals below. 1) Armodafinil PA # [id number] for 12 months 03-04-23 thru 03-04-24 2) Mounjaro PA # [id number] for 12 months 03-04-23 thru 1-=12=24. Anahi Layton [employer] Allergies As of Date: 03/02/2023 Noted Allergy Reaction BEES 01/11/2007 CATS 01/11/2007 CLINDAMYCIN 10/01/2008 4 - Hives DOGS 01/11/2007 DUST 01/11/2007 DUST MITES 01/11/2007 LATEX 01/11/2007 LYRICA (PREGABALIN) 01/11/2009 7 - Swelling MOLD 02/24/2007 VANCOMYCIN 11/22/2021 14 - Other: See Comments Date Reviewed: 01/02/2023 Reviewed by: Merle Stone - Fully Assessed Reason for Visit: Insurance Authorization [[id number]] Cmt: Nuvigil Prescriptions as of 03/05/2023 - armodafinil (NUVIGIL) 150 mg tab Take 1 tablet by mouth twice daily for 90 days. - baclofen (LIORESAL) 10 mg tablet TAKE 1 TABLET BY MOUTH THREE TIMES DAILY NEEDED FOR MUSCLE SPASM. DO NOT USE WITH FLEXERIL - blood sugar diagnostic (BLOOD GLUCOSE TEST) test strip Test blood sugar(s) 1 times daily. Dx: Type 2 DM - Uncontrolled E11.65 Insulin: No - Blood-Glucose Meter Use as directed - Blood-Glucose Meter 1 Each as directed. - EPINEPHrine (EPIPEN) 0.3 mg/0.3 mL auto-injector Use as directed - ibuprofen (MOTRIN) 200 mg tablet Take 200 mg by mouth every 6 hours as needed. - Lancets lancets Test blood sugar(s) 1 times daily. Dx: Type 2 DM - Uncontrolled E11.65 Insulin: No - levocetirizine 5 mg tablet Take 1 tablet by mouth once daily. - levothyroxine (LEVOXYL) 100 mcg tablet Take 1 tablet by mouth once daily. Except none on Wednesday - liothyronine (CYTOMEL) 25 mcg tablet Take 1 tablet by mouth once daily. - metFORMIN (GLUCOPHAGE) 500 mg tablet Take 1 tablet by mouth daily with breakfast. - metFORMIN (GLUCOPHAGE) 500 mg tablet Take 1 tablet by mouth daily with breakfast. - montelukast (SINGULAIR) 10 mg tablet Take 1 tablet by mouth daily at bedtime. - tirzepatide (MOUNJARO) 2.5 mg/0.5 mL pen injector Inject 2.5 mg subcutaneously one time a week. Facility-Administered Medications as of 03/05/2023 - perflutren lipid microspheres 1.3 mL in NaCl (PF) 0.9% 10 mL injection (DEFINITY) - sodium chloride 0.9 % (flush) 10 mL (BD POSIFLUSH) Problem List As Of Date 03/02/2023 Noted Resolved Cough [R05.9] 03/29/2006 03/11/2018 Hypothyroidism [E03.9] 01/11/2007 Reflex sympathetic dystrophy of lower limb [G90*01/11/2007 Allergic rhinitis, cause unspecified [J30.9] 01/11/2007 03/11/2018 Sleep disorder [G47.9] 01/11/2007 03/11/2018 Spinal stenosis, lumbar region, without neuroge*11/08/2008 Postlaminectomy syndrome, lumbar region [M96.1] 11/08/2008 03/11/2018 Thoracic or lumbosacral neuritis or radiculitis*11/08/2008 03/11/2018 Degeneration of lumbar or lumbosacral intervert*11/08/2008 03/11/2018 Lumbosacral spondylosis without myelopathy [M47*11/08/2008 03/11/2018 LUMBAR DISC DISPLACEMENT [M51.26] 11/08/2008 Brachial neuritis or radiculitis NOS [M54.12] 11/08/2008 03/11/2018 Sprain of neck [S13.9XXA] 11/08/2008 03/11/2018 Cervicalgia [M54.2] 11/08/2008 03/11/2018 Fibromyalgia [M79.7] 03/05/2009 Spinal stenosis, lumbar region, with neurogenic*12/06/2012 03/11/2018 Other specified acquired hypothyroidism [E03.8] 06/08/2022 Muscle spasm [M62.838] 06/08/2022 Narcolepsy [G47.419] Allergic rhinitis [J30.9] Nausea [R11.0] 12/26/2012 03/11/2018 Spinal headache [G97.1] 12/26/2012 03/11/2018 Postoperative CSF leak [G97.82, G96.00] 01/24/2013 03/11/2018 Hyperglycemia [R73.9] 03/15/2017 04/17/2019 Type 2 diabetes mellitus with complication, wit*08/12/2017 Adhesive capsulitis of right shoulder [M75.01] 01/20/2019 Calcific tendinitis of right shoulder [M75.31] 01/20/2019 Chronic right shoulder pain [M25.511, G89.29] 01/20/2019 Bilateral carotid artery stenosis [I65.23] 12/16/2021 Encounter Status:Closed by SHARYN HURT MA on 03/05/23 [facility] 02-11-2023 [facility] (CLAUDIAWS) PHYLICIA FALK ([id number]) 1965 F Date Time Provider Department 02/11/23 [facility] During your visit today, we recorded the following information about you: Sharyn Hurt Ma 02/11/2023 11:40 AM Signed Electronic PA submitted for Janumet Sharyn Hurt Ma, Sharyn 02/18/2023 9:57 AM Signed Called to check on status with Irina and advised need to call Heather who is handling PA Heather RUBIO number [phone] Spoke to Heather Corral who checked on status of PA and is still pending and pushed to expedite due to being diabetic Hoem Keller Ma, RN 02/19/2023 5:04 PM Signed Norah - [facility] - phoned to report Joseumet has been approved for 12 months: 02-19-23 to 02-20-24. Norah will fax approval to Dr. Duffy office. Fax number given. Notified patient. Vishnu Montes De Oca JACOBO 02/22/2023 11:31 AM Signed Approval faxed to Ayana. Reyna Garcia MA 02/22/2023 1:49 PM Signed Approval scanned into chart. Reyna Garcia MA Allergies As of Date: 02/11/2023 Noted Allergy Reaction BEES 01/11/2007 CATS 01/11/2007 CLINDAMYCIN 10/01/2008 4 - Hives DOGS 01/11/2007 DUST 01/11/2007 DUST MITES 01/11/2007 LATEX 01/11/2007 LYRICA (PREGABALIN) 01/11/2009 7 - Swelling MOLD 02/24/2007 VANCOMYCIN 11/22/2021 14 - Other: See Comments Date Reviewed: 01/02/2023 Reviewed by: Merle Stone - Fully Assessed Reason for Visit: Insurance Authorization [[id number]] Cmt: Cass Prescriptions as of 02/22/2023 - levothyroxine (LEVOXYL) 100 mcg tablet Take 1 tablet by mouth once daily. Except none on Wednesday - liothyronine (CYTOMEL) 25 mcg tablet Take 1 tablet by mouth once daily. - montelukast (SINGULAIR) 10 mg tablet Take 1 tablet by mouth daily at bedtime. - armodafinil (NUVIGIL) 150 mg tab Take 1 tablet by mouth twice daily for 90 days. - baclofen (LIORESAL) 10 mg tablet TAKE 1 TABLET BY MOUTH THREE TIMES DAILY NEEDED FOR MUSCLE SPASM. DO NOT USE WITH FLEXERIL - EPINEPHrine (EPIPEN) 0.3 mg/0.3 mL auto-injector Use as directed - SITagliptin-metFORMIN (JANUMET) 50-500 mg per tablet Take 1 tablet by mouth once daily. - blood sugar diagnostic (BLOOD GLUCOSE TEST) test strip Test blood sugar(s) 1 times daily. Dx: Type 2 DM - Uncontrolled E11.65 Insulin: No - Lancets lancets Test blood sugar(s) 1 times daily. Dx: Type 2 DM - Uncontrolled E11.65 Insulin: No - Blood-Glucose Meter 1 Each as directed. - Blood-Glucose Meter Use as directed - levocetirizine 5 mg tablet Take 1 tablet by mouth once daily. - ibuprofen (MOTRIN) 200 mg tablet Take 200 mg by mouth every 6 hours as needed. Facility-Administered Medications as of 02/22/2023 - perflutren lipid microspheres 1.3 mL in NaCl (PF) 0.9% 10 mL injection (DEFINITY) - sodium chloride 0.9 % (flush) 10 mL (BD POSIFLUSH) Problem List As Of Date 02/11/2023 Noted Resolved Cough [R05.9] 03/29/2006 03/11/2018 Hypothyroidism [E03.9] 01/11/2007 Reflex sympathetic dystrophy of lower limb [G90*01/11/2007 Allergic rhinitis, cause unspecified [J30.9] 01/11/2007 03/11/2018 Sleep disorder [G47.9] 01/11/2007 03/11/2018 Spinal stenosis, lumbar region, without neuroge*11/08/2008 Postlaminectomy syndrome, lumbar region [M96.1] 11/08/2008 03/11/2018 Thoracic or lumbosacral neuritis or radiculitis*11/08/2008 03/11/2018 Degeneration of lumbar or lumbosacral intervert*11/08/2008 03/11/2018 Lumbosacral spondylosis without myelopathy [M47*11/08/2008 03/11/2018 LUMBAR DISC DISPLACEMENT [M51.26] 11/08/2008 Brachial neuritis or radiculitis NOS [M54.12] 11/08/2008 03/11/2018 Sprain of neck [S13.9XXA] 11/08/2008 03/11/2018 Cervicalgia [M54.2] 11/08/2008 03/11/2018 Fibromyalgia [M79.7] 03/05/2009 Spinal stenosis, lumbar region, with neurogenic*12/06/2012 03/11/2018 Other specified acquired hypothyroidism [E03.8] 06/08/2022 Muscle spasm [M62.838] 06/08/2022 Narcolepsy [G47.419] Allergic rhinitis [J30.9] Nausea [R11.0] 12/26/2012 03/11/2018 Spinal headache [G97.1] 12/26/2012 03/11/2018 Postoperative CSF leak [G97.82, G96.00] 01/24/2013 03/11/2018 Hyperglycemia [R73.9] 03/15/2017 04/17/2019 Type 2 diabetes mellitus with complication, wit*08/12/2017 Adhesive capsulitis of right shoulder [M75.01] 01/20/2019 Calcific tendinitis of right shoulder [M75.31] 01/20/2019 Chronic right shoulder pain [M25.511, G89.29] 01/20/2019 Bilateral carotid artery stenosis [I65.23] 12/16/2021 Encounter Status:Closed by VISHNU MONTES DE OCA LPN on 02/22/23 Normal [facility] UA DIP, URINE (POC)on 2022 BILIRUBIN UA (POCT) Small Abnormal Negative [facility] CLARITY UA (POCT) Slightly Cloudy Cl [facility] COLOR UA (POCT) Dark yellow [facility] GLUCOSE UA (POCT) Negative Negative mg/dL [facility] HEMOGLOBIN/BLOOD UA (POCT) Moderate Abnormal Negative [facility] KETONE UA (POCT) Trace Negative mg/dL [facility] LEUKOCYTES UA (POCT) Small Abnormal Negative [facility] NITRITE UA (POCT) Negative Negative [facility] PH UA (POCT) 5.0 4.5 - 8.0 [facility] Protein Ql (U) 100 mg/dL Abnormal Negative mg/dL [facility] SPECIFIC GRAVITY UA (POCT) >=1.030 1.005 - 1.030 [facility] UROBILINOGEN UA (POCT) 0.2 E.U./dL Normal E.U./dL [facility] CT BRAIN WO IVCONon 12-13-19 [facility] No Panel Informationon 11-13 [facility] BMP with eGFRon 07-09-2021 AGE 55 years Normal [facility] Comment on above: Performed By: #### 2 [id number] #### [facility],[address] [place] [address] Anion gap [Moles/Vol] 20 mmol/L Normal 10 - 20 [facility] Comment on above: Performed By: #### 2 62989 #### [facility],[address] [place] [address]201 BMP with eGFR Normal [facility] Comment on above: Result Comment: BASI C METABOLIC PANEL Performed By: #### 2 02581 #### [facility],[address] [place] [address]247 Calcium [Mass/Vol] 10.2 mg/dL High 8.5 - 10.1 [facility] Comment on above: Performed By: #### 2 78457 #### [facility],[address] [place] [address]13 Chloride [Moles/Vol] 99 mmol/L Normal 98 - 107 [facility] Comment on above: Performed By: #### 2 05980 #### [facility],[address] [place] [address] 67346 CO2 [Moles/Vol] 22.5 mmol/L Normal 21.0 - 32.0 [facility] Comment on above: Performed By: #### 2 83636 #### [facility],[address] [place] [address] 69769 Creatinine [Mass/Vol] 0.76 mg/dL Normal 0.55 - 1.02 [facility] Comment on above: Performed By: #### 2 59698 #### [facility],[address] [place] [address] 32265 GFR/1.73 sq M.predicted among non-blacks MDRD (S/P/Bld) [Vol rate/Area] mL/min/{1.73_m2} Normal 60 - 999 [facility] Comment on above: Performed By: #### 2 20000 #### [facility],[address] [place] [address] Result Comment: ACCO RDING TO THE NATIONAL KIDNEY DISEASE EDUCATION PROGRAM(NKDE), A NORMAL eGFR IS A VALUE GREATER THAN OR EQUAL TO 60 ML/MIN/1.73 SQ METERS. CHRONIC KIDNEY DISEASE: <60mL/MIN/1.73 SQ METERS KIDNEY FAILURE: <15mL/MIN/1.73 SQ METERS THIS TEST SHOULD ONLY BE USED FOR PATIENTS 18 YEARS OF AGE AND OLDER. Glucose [Mass/Vol] 193 mg/dL High 74 - 106 [facility] Comment on above: Performed By: #### 2 98396 #### [place] [address] Potassium [Moles/Vol] 4.0 mmol/L Normal 3.5 - 5.1 [facility] Comment on above: Performed By: #### 2 63184 #### [facility],[address] [place] [address] Sodium [Moles/Vol] 137 mmol/L Normal 136 - 145 [facility] Comment on above: Performed By: #### 2 13211 #### [facility],[address] [place] [address] Urea nitrogen [Mass/Vol] 16 mg/dL Normal 7 - 18 [facility] Comment on above: Performed By: #### 2 31005 #### [facility],[address] [place], [place] [id number] C-REACTIVE PROTEINon 022 CRP 2.80 mg/dl High 0.00 - 0.90 [facility] Comment on above: Performed By: #### 2 32273 #### [facility],[address] [place], [place] [id number] CBC + DIFFon 07-09-2021 Baso # 0.10 x10EE3/UL Normal 0.00 - 0.10 [facility] Comment on above: Performed By: #### 2 28725 #### [facility],[address] [place] [address] 77701 Basophils/100 WBC (Bld) 1.0 % Normal 0.0 - 2.0 [facility] Comment on above: Performed By: #### 2 32210 #### [facility],[address] [place] [address] CBC + DIFF Normal [facility] Comment on above: Result Comment: CBC- COMPLETE BLOOD COUNT Performed By: #### 2 28836 #### [facility],[address] [place] [address] EO # 0.40 x10EE3/UL Normal 0.00 - 0.50 [facility] Comment on above: Performed By: #### 2 85879 #### [facility],[address] [place], [place] [id number] Eosinophils/100 WBC (Bld) 4.0 % Normal 0.0 - 7.0 [facility] Comment on above: Performed By: #### 2 20201 #### [facility],[address] [place] [address] Erythrocyte distribution width (RBC) [Ratio] 17.6 % High 12.0 - 15.6 [facility] Comment on above: Performed By: #### 2 41323 #### [facility],[address] [place] [address] Hematocrit (Bld) [Volume fraction] 31.8 % Low 34.0 - 46.0 [facility] Comment on above: Performed By: #### 2 87061 #### [facility],[address] [place], [place] [id number] Hemoglobin (Bld) [Mass/Vol] 10.5 g/dL Low 12.0 - 16.0 [facility] Comment on above: Performed By: #### 2 23036 #### [facility],[address] [place] [address] Lymph # 1.70 x10EE3/UL Normal 0.80 - 2.80 [facility] Comment on above: Performed By: #### 2 89091 #### [facility],[address] [place] [address] 90057 Lymphocytes/100 WBC (Bld) 16.8 % Low 20.0 - 45.0 [facility] Comment on above: Performed By: #### 2 69571 #### [facility],[address] [place] [address] 78323 MANUAL DIFF N/A Normal [facility] Comment on above: Performed By: #### 2 74290 #### [facility],[address] [place] [address] 68922 MCH (RBC) [Entitic mass] 30 pg Normal 27 - 33 [facility] Comment on above: Performed By: #### 2 44032 #### [facility],[address] [place] [address] MCHC 33 X10 3 Normal 32 - 36 [facility] Comment on above: Performed By: #### 2 49221 #### [facility],[address] [place] [address] 22940 MCV (RBC) [Entitic vol] 90 fL Normal 80 - 99 [facility] Comment on above: Performed By: #### 2 71362 #### [facility],[address] [place] [address] 09742 Evangeline # 0.50 x10EE3/UL Normal 0.20 - 1.00 [facility] Comment on above: Performed By: #### 2 16797 #### [facility],[address] [place] [address] 81195 MONOS % 5.5 % Normal 0.0 - 10.0 [facility] Comment on above: Performed By: #### 2 75450 #### [facility],[address] [place] [address] 44508 Morphology Raheem (Bld) [Interp] N/A Normal [facility] Comment on above: Result Comment: {CD] Performed By: #### 2 91585 #### [facility],[address] [place] [address] 15702 Neut # 7.20 x10EE3/UL High 1.50 - 7.10 [facility] Comment on above: Performed By: #### 2 57601 #### [facility],[address] [place] [address] 35727 Neutrophils/100 WBC (Bld) 72.7 % Normal 46.0 - 76.0 [facility] Comment on above: Performed By: #### 2 04608 #### [facility],[address] [place] [address] 66586 PLATELET 475 x10EE3/UL High 150 - 450 [facility] Comment on above: Performed By: #### 2 65296 #### [facility],[address] [place] [address] 72366 Platelet mean volume (Bld) [Entitic vol] 8.1 fL Normal 6.6 - 10.5 [facility] Comment on above: Result Comment: AUTO MATED DIFFERENTIAL Performed By: #### 2 51799 #### [facility],[address] [place] [address] 03835 RBC 3.54 x 10EE6/UL Low 4.10 - 5.30 [facility] Comment on above: Performed By: #### 2 12767 #### [facility],[address] [place] [address] 53348 WBC 9.9 x 10EE3/UL Normal 4.5 - 10.8 [facility] Comment on above: Performed By: #### 2 03002 #### [facility],[address] [place] [address] 61127 CPKon 07-09-2021 CPK 42 U/L Normal 26 - 192 [facility] Comment on above: Performed By: #### 2 60653 #### [facility],[address] [place] [address] 52591 HEPATIC FUNCTION PANELon Albumin [Mass/Vol] 2.9 g/dL Low 3.4 - 5.0 [facility] Comment on above: Performed By: #### 2 50999 #### [facility],[address] [place] [address] ALK PHOS 147 U/L High 46 - 116 [facility] Comment on above: Performed By: #### 2 38061 #### [facility],[address] [place] [address] ALT [Catalytic activity/Vol] 27 U/L Normal 14 - 59 [facility] Comment on above: Performed By: #### 2 22377 #### [facility],[address] [place] [address] AST [Catalytic activity/Vol] 20 U/L Normal 13 - 39 [facility] Comment on above: Performed By: #### 2 47946 #### [facility],[address] [place] [address] Bilirubin [Mass/Vol] 0.2 mg/dL Normal 0.2 - 1.0 [facility] Comment on above: Performed By: #### 2 23728 #### [facility],[address] [place] [address] Bilirubin.direct [Mass/Vol] 0.1 mg/dL Normal 0.0 - 0.2 [facility] Comment on above: Performed By: #### 2 61749 #### [facility],[address] [place], [place] [id number] Hepatic function 2000 panel Normal [facility] Comment on above: Result Comment: HEPA TIC FUNCTION PROFILE Performed By: #### 2 07955 #### [facility],[address] [place], [place] [id number] Protein [Mass/Vol] 8.4 g/dL High 6.4 - 8.2 [facility] Comment on above: Performed By: #### 2 46483 #### [facility],[address] [place] [address] 02354 SEDRATEon 07-09-2021 SEDRATE 116 mm/hr High 0 - 30 [facility] Comment on above: Performed By: #### 2 34916 #### [facility],[address] [place] [address] 25758 BMP with eGFRon 07-03-2021 AGE 55 years Normal [facility] Comment on above: Performed By: #### 2 90391 #### [facility],[address] [place] [address] 75273 Anion gap [Moles/Vol] 18 mmol/L Normal 10 - 20 [facility] Comment on above: Performed By: #### 2 11151 #### [facility],[address] [place] [address] 20994 BMP with eGFR Normal [facility] Comment on above: Result Comment: BASI C METABOLIC PANEL Performed By: #### 2 30001 #### [facility],[address] [place] [address] 41630 Calcium [Mass/Vol] 10.0 mg/dL Normal 8.5 - 10.1 [facility] Comment on above: Performed By: #### 2 25043 #### [facility],[address] [place] [address] 97016 Chloride [Moles/Vol] 100 mmol/L Normal 98 - 107 [facility] Comment on above: Performed By: #### 2 22451 #### [facility],[address] [place] [address] 75190 CO2 [Moles/Vol] 23.6 mmol/L Normal 21.0 - 32.0 [facility] Comment on above: Performed By: #### 2 63192 #### [facility],[address] [place] [address] 30478 Creatinine [Mass/Vol] 0.66 mg/dL Normal 0.55 - 1.02 [facility] Comment on above: Performed By: #### 2 99072 #### [facility],[address] [place] [address] 82209 GFR/1.73 sq M.predicted among non-blacks MDRD (S/P/Bld) [Vol rate/Area] mL/min/{1.73_m2} Normal 60 - 999 [facility] Comment on above: Performed By: #### 2 32114 #### [facility],[address] [place] [address] 00994 Result Comment: ACCO RDING TO THE NATIONAL KIDNEY DISEASE EDUCATION PROGRAM(NKDE), A NORMAL eGFR IS A VALUE GREATER THAN OR EQUAL TO 60 ML/MIN/1.73 SQ METERS. CHRONIC KIDNEY DISEASE: <60mL/MIN/1.73 SQ METERS KIDNEY FAILURE: <15mL/MIN/1.73 SQ METERS THIS TEST SHOULD ONLY BE USED FOR PATIENTS 18 YEARS OF AGE AND OLDER. Glucose [Mass/Vol] 114 mg/dL High 74 - 106 [facility] Comment on above: Performed By: #### 2 82025 #### [facility],[address] [place] [address] 22518 Potassium [Moles/Vol] 3.8 mmol/L Normal 3.5 - 5.1 [facility] Comment on above: Performed By: #### 2 52614 #### [facility],[address] [place] [address] 38457 Sodium [Moles/Vol] 138 mmol/L Normal 136 - 145 [facility] Comment on above: Performed By: #### 2 15727 #### [facility],[address] [place] [address] 19029 Urea nitrogen [Mass/Vol] 24 mg/dL High 7 - 18 [facility] Comment on above: Performed By: #### 2 93293 #### [facility],[address] [place] [address] 10788 C-REACTIVE PROTEINon 022 CRP 2.20 mg/dl High 0.00 - 0.90 [facility] Comment on above: Performed By: #### 2 19880 #### [facility],[address] [place] [address] CBC + DIFFon 07-03-2021 Baso # 0.10 x10EE3/UL Normal 0.00 - 0.10 [facility] Comment on above: Performed By: #### 2 30301 #### [facility],[address] [place] [address] 23227 Basophils/100 WBC (Bld) 0.6 % Normal 0.0 - 2.0 [facility] Comment on above: Performed By: #### 2 14622 #### [facility],[address] [place] [address] CBC + DIFF Normal [facility] Comment on above: Result Comment: CBC- COMPLETE BLOOD COUNT Performed By: #### 2 76108 #### [facility],[address] [place] [address] EO # 0.80 x10EE3/UL High 0.00 - 0.50 [facility] Comment on above: Performed By: #### 2 39345 #### [facility],[address] [place] [address] 94467 Eosinophils/100 WBC (Bld) 7.9 % High 0.0 - 7.0 [facility] Comment on above: Performed By: #### 2 76887 #### [facility],[address] [place], [place] [id number] Erythrocyte distribution width (RBC) [Ratio] 17.2 % High 12.0 - 15.6 [facility] Comment on above: Performed By: #### 2 31984 #### [facility],[address] [place] [address] Hematocrit (Bld) [Volume fraction] 27.7 % Low 34.0 - 46.0 [facility] Comment on above: Performed By: #### 2 08174 #### [facility],[address] [place] [address] 07743 Hemoglobin (Bld) [Mass/Vol] 9.1 g/dL Low 12.0 - 16.0 [facility] Comment on above: Performed By: #### 2 71944 #### [place] [address] Lymph # 1.80 x10EE3/UL Normal 0.80 - 2.80 [facility] Comment on above: Performed By: #### 2 79400 #### [place] [address] Lymphocytes/100 WBC (Bld) 17.0 % Low 20.0 - 45.0 [facility] Comment on above: Performed By: #### 2 54285 #### [place] [address] MANUAL DIFF N/A Normal [facility] Comment on above: Performed By: #### 2 94170 #### [place] [address] MCH (RBC) [Entitic mass] 30 pg Normal 27 - 33 [facility] Comment on above: Performed By: #### 2 17092 #### [place] [address] MCHC 33 X10 3 Normal 32 - 36 [facility] Comment on above: Performed By: #### 2 22753 #### [place] [address] MCV (RBC) [Entitic vol] 89 fL Normal 80 - 99 [facility] Comment on above: Performed By: #### 2 23160 #### [place] [address] Evangeline # 0.60 x10EE3/UL Normal 0.20 - 1.00 [facility] Comment on above: Performed By: #### 2 19572 #### [place] [address] MONOS % 5.6 % Normal 0.0 - 10.0 [facility] Comment on above: Performed By: #### 2 65659 #### [facility],[address] [place] [address] Morphology Raheem (Bld) [Interp] N/A Normal [facility] Comment on above: Result Comment: {CD] Performed By: #### 2 78205 #### [facility],[address] [place] [address] Neut # 7.40 x10EE3/UL High 1.50 - 7.10 [facility] Comment on above: Performed By: #### 2 19414 #### [place] [address] Neutrophils/100 WBC (Bld) 68.9 % Normal 46.0 - 76.0 [facility] Comment on above: Performed By: #### 2 74190 #### [place] [address] PLATELET 476 x10EE3/UL High 150 - 450 [facility] Comment on above: Performed By: #### 2 38422 #### [place] [address] Platelet mean volume (Bld) [Entitic vol] 7.5 fL Normal 6.6 - 10.5 [facility] Comment on above: Result Comment: AUTO MATED DIFFERENTIAL Performed By: #### 2 73715 #### [facility],[address] [place], [place] [id number] RBC 3.10 x 10EE6/UL Low 4.10 - 5.30 [facility] Comment on above: Performed By: #### 2 40041 #### [place] [address] WBC 10.7 x 10EE3/UL Normal 4.5 - 10.8 [facility] Comment on above: Performed By: #### 2 33769 #### [facility],[address] [place] [address] CPKon 07-03-2021 CPK 62 U/L Normal 26 - 192 [facility] Comment on above: Performed By: #### 2 20089 #### [facility],[address] [place] [address] 30159 HEPATIC FUNCTION PANELon Albumin [Mass/Vol] 2.7 g/dL Low 3.4 - 5.0 [facility] Comment on above: Performed By: #### 2 92744 #### [facility],[address] [place] [address] ALK PHOS 143 U/L High 46 - 116 [facility] Comment on above: Performed By: #### 2 36829 #### [facility],[address] [place], [place] [id number] ALT [Catalytic activity/Vol] 25 U/L Normal 14 - 59 [facility] Comment on above: Performed By: #### 2 90832 #### [facility],[address] [place], [place] [id number] AST [Catalytic activity/Vol] 21 U/L Normal 13 - 39 [facility] Comment on above: Performed By: #### 2 41097 #### [facility],[address] [place] [address] 13271 Bilirubin [Mass/Vol] 0.2 mg/dL Normal 0.2 - 1.0 [facility] Comment on above: Performed By: #### 2 33207 #### [facility],[address] [place] [address] 89618 Bilirubin.direct [Mass/Vol] 0.1 mg/dL Normal 0.0 - 0.2 [facility] Comment on above: Performed By: #### 2 91974 #### [facility],[address] [place] [address] 14073 Hepatic function 2000 panel Normal [facility] Comment on above: Result Comment: HEPA TIC FUNCTION PROFILE Performed By: #### 2 01007 #### [facility],[address] [place] [address] 00802 Protein [Mass/Vol] 8.0 g/dL Normal 6.4 - 8.2 [facility] Comment on above: Performed By: #### 2 10940 #### [facility],[address] [place] [address] 35770 SEDRATEon 07-03-2021 SEDRATE 116 mm/hr High 0 - 30 [facility] Comment on above: Performed By: #### 2 84075 #### [facility],[address] [place] [address] 46955 PRE-ALBUMIN [CCL]on 06-25-19 22 Prealbumin [Mass/Vol] 30 mg/dL Normal 17-36 [facility] Comment on above: Result Comment: [facility] [address] [place] [address] Danie Chaudhari III, M.D. [id number] Performed By: #### 2 32028 #### [address] [address] Prealbuminon 06-25-2021 Prealbumin [Mass/Vol] 30 mg/dL Normal 17-36 [facility] Comment on above: Performed By: #### P REALB #### [facility] [address] [place] [id number] BILIRUBIN DIRECTon 2 Bilirubin.direct [Mass/Vol] 0.1 mg/dL Normal 0.0 - 0.2 [facility] Comment on above: Performed By: #### 2 22729 #### [facility],[address] [place] [address] 97504 C-REACTIVE PROTEINon 022 CRP 3.80 mg/dl High 0.00 - 0.90 [facility] Comment on above: Performed By: #### 2 70240 #### [facility],[address] [place] [address] 15303 CBC + DIFFon 06-24-2021 Baso # 0.10 x10EE3/UL Normal 0.00 - 0.10 [facility] Comment on above: Performed By: #### 2 81424 #### [facility],[address] [place] [address] 85924 Basophils/100 WBC (Bld) 1.1 % Normal 0.0 - 2.0 [facility] Comment on above: Performed By: #### 2 77490 #### [facility],[address] [place] [address] CBC + DIFF Normal [facility] Comment on above: Result Comment: CBC- COMPLETE BLOOD COUNT Performed By: #### 2 33064 #### [facility],[address] [place] [address] EO # 0.40 x10EE3/UL Normal 0.00 - 0.50 [facility] Comment on above: Performed By: #### 2 90590 #### [facility],[address] [place] [address] 09761 Eosinophils/100 WBC (Bld) 3.3 % Normal 0.0 - 7.0 [facility] Comment on above: Performed By: #### 2 50073 #### [facility],[address] [place], [place] [id number] Erythrocyte distribution width (RBC) [Ratio] 14.9 % Normal 12.0 - 15.6 [facility] Comment on above: Performed By: #### 2 08898 #### [facility],[address] [place] [address] Hematocrit (Bld) [Volume fraction] 25.4 % Low 34.0 - 46.0 [facility] Comment on above: Performed By: #### 2 25342 #### [facility],[address] [place] [address] 49937 Hemoglobin (Bld) [Mass/Vol] 8.4 g/dL Low 12.0 - 16.0 [facility] Comment on above: Performed By: #### 2 14749 #### [facility],[address] [place] [address] Lymph # 2.90 x10EE3/UL High 0.80 - 2.80 [facility] Comment on above: Performed By: #### 2 49700 #### [facility],[address] [place] [address] Lymphocytes/100 WBC (Bld) 24.6 % Normal 20.0 - 45.0 [facility] Comment on above: Performed By: #### 2 20372 #### [facility],[address] [place] [address] MANUAL DIFF N/A Normal [facility] Comment on above: Performed By: #### 2 32409 #### [facility],[address] [place] [address] MCH (RBC) [Entitic mass] 29 pg Normal 27 - 33 [facility] Comment on above: Performed By: #### 2 39973 #### [facility],[address] [place] [address] MCHC 33 X10 3 Normal 32 - 36 [facility] Comment on above: Performed By: #### 2 41896 #### [facility],[address] [place], [place] [id number] MCV (RBC) [Entitic vol] 89 fL Normal 80 - 99 [facility] Comment on above: Performed By: #### 2 82675 #### [facility],[address] [place] [address] 58222 Evangeline # 0.60 x10EE3/UL Normal 0.20 - 1.00 [facility] Comment on above: Performed By: #### 2 39945 #### [facility],[address] [place] [address] 10485 MONOS % 5.0 % Normal 0.0 - 10.0 [facility] Comment on above: Performed By: #### 2 89968 #### [facility],[address] [place] [address] 12730 Morphology Raheem (Bld) [Interp] N/A Normal [facility] Comment on above: Result Comment: {CD] Performed By: #### 2 82107 #### [facility],[address] [place] [address] 87522 Neut # 7.80 x10EE3/UL High 1.50 - 7.10 [facility] Comment on above: Performed By: #### 2 69524 #### [facility],[address] [place] [address] 32124 Neutrophils/100 WBC (Bld) 66.0 % Normal 46.0 - 76.0 [facility] Comment on above: Performed By: #### 2 99356 #### [facility],[address] [place] [address] 85385 PLATELET 505 x10EE3/UL High 150 - 450 [facility] Comment on above: Performed By: #### 2 77321 #### [facility],[address] [place] [address] 18654 Platelet mean volume (Bld) [Entitic vol] 7.4 fL Normal 6.6 - 10.5 [facility] Comment on above: Result Comment: AUTO MATED DIFFERENTIAL Performed By: #### 2 30659 #### [facility],[address] [place] [address] 02009 RBC 2.87 x 10EE6/UL Low 4.10 - 5.30 [facility] Comment on above: Performed By: #### 2 61866 #### [facility],[address] [place] [address] 93790 WBC 11.7 x 10EE3/UL High 4.5 - 10.8 [facility] Comment on above: Performed By: #### 2 83993 #### [facility],[address] [place] [address] 71563 CMP with eGFRon 06-24-2021 AGE 55 years Normal [facility] Comment on above: Performed By: #### 2 83460 #### [facility],[address] [place] [address] 60150 Albumin [Mass/Vol] 2.5 g/dL Low 3.4 - 5.0 [facility] Comment on above: Performed By: #### 2 92707 #### [facility],[address] [place] [address] 88507 Albumin/Globulin [Mass ratio] 0.5 {ratio} Low 0.9 - 1.6 [facility] Comment on above: Performed By: #### 2 03841 #### [facility],[address] [place] [address] 78050 ALK PHOS 127 U/L High 46 - 116 [facility] Comment on above: Performed By: #### 2 36272 #### [facility],[address] [place] [address] 62148 ALT [Catalytic activity/Vol] 22 U/L Normal 14 - 59 [facility] Comment on above: Performed By: #### 2 11853 #### [facility],[address] [place] [address] 76398 Anion gap [Moles/Vol] 17 mmol/L Normal 10 - 20 [facility] Comment on above: Performed By: #### 2 64318 #### [facility],[address] [place] [address] 37271 AST [Catalytic activity/Vol] 26 U/L Normal 13 - 39 [facility] Comment on above: Performed By: #### 2 50086 #### [facility],[address] [place] [address] 54485 B/C RATIO 23 ratio Normal 0 - 30 [facility] Comment on above: Performed By: #### 2 28709 #### [facility],[address] [place] [address] 09652 Bilirubin [Mass/Vol] 0.2 mg/dL Normal 0.2 - 1.0 [facility] Comment on above: Performed By: #### 2 04743 #### [facility],[address] [place] [address] 60366 Calcium [Mass/Vol] 10.6 mg/dL High 8.5 - 10.1 [facility] Comment on above: Performed By: #### 2 26588 #### [facility],[address] [place] [address] 30802 Chloride [Moles/Vol] 102 mmol/L Normal 98 - 107 [facility] Comment on above: Performed By: #### 2 99429 #### [facility],[address] [place] [address] 67346 CMP with eGFR Normal [facility] Comment on above: Result Comment: COMP REHENSIVE METABOLIC PANEL Performed By: #### 2 64413 #### [facility],[address] [place] [address] 02867 CO2 [Moles/Vol] 25.1 mmol/L Normal 21.0 - 32.0 [facility] Comment on above: Performed By: #### 2 71221 #### [facility],[address] [place], [place] [address] Creatinine [Mass/Vol] 0.86 mg/dL Normal 0.55 - 1.02 [facility] Comment on above: Performed By: #### 2 25277 #### [facility],[address] [place] [address] 43606 GFR/1.73 sq M.predicted among non-blacks MDRD (S/P/Bld) [Vol rate/Area] mL/min/{1.73_m2} Normal 60 - 999 [facility] Comment on above: Performed By: #### 2 23664 #### [facility],[address] [place] [address] 93995 Result Comment: ACCO RDING TO THE NATIONAL KIDNEY DISEASE EDUCATION PROGRAM(NKDE), A NORMAL eGFR IS A VALUE GREATER THAN OR EQUAL TO 60 ML/MIN/1.73 SQ METERS. CHRONIC KIDNEY DISEASE: <60mL/MIN/1.73 SQ METERS KIDNEY FAILURE: <15mL/MIN/1.73 SQ METERS THIS TEST SHOULD ONLY BE USED FOR PATIENTS 18 YEARS OF AGE AND OLDER. Globulin (S) [Mass/Vol] 5.5 g/dL High 1.5 - 3.8 [facility] Comment on above: Performed By: #### 2 78925 #### [facility],[address] [place] [address] 82111 Glucose [Mass/Vol] 90 mg/dL Normal 74 - 106 [facility] Comment on above: Performed By: #### 2 66782 #### [facility],[address] [place] [address] 42184 Potassium [Moles/Vol] 4.3 mmol/L Normal 3.5 - 5.1 [facility] Comment on above: Performed By: #### 2 51542 #### [facility],[address] [place] [address] 22868 Protein [Mass/Vol] 8.0 g/dL Normal 6.4 - 8.2 [facility] Comment on above: Performed By: #### 2 50592 #### [facility],[address] [place] [address] 17723 Sodium [Moles/Vol] 140 mmol/L Normal 136 - 145 [facility] Comment on above: Performed By: #### 2 68133 #### [facility],[address] [place] [address] 42383 Urea nitrogen [Mass/Vol] 20 mg/dL High 7 - 18 [facility] Comment on above: Performed By: #### 2 43053 #### [facility],[address] [place] [address] 50550 CPKon 06-24-2021 CPK 324 U/L High 26 - 192 [facility] Comment on above: Performed By: #### 2 07767 #### [facility],[address] [place] [address] 67057 T4-FREE (FREE THYROXINE)on 0 06-24-2021 Free T4 [Mass/Vol] 0.39 ng/dL Low 0.76 - 1.46 [facility] Comment on above: Result Comment: P otential of falsely elevated results when biotin concentrations are > 10 ng/mL. Performed By: #### 2 47745 #### [facility],[address] [place] [address] TSHon 06-24-2021 TSH Qn 0.11 m[IU]/L Low 0.35 - 3.74 [facility] Comment on above: Performed By: #### 2 47436 #### [facility],[address] [place] [address] DISCH.SUMon 01-08-2021 DISCH.[facility] Date of : [address] [address] Unit Number: [id number] Discharge Summary Patient Status: [facility] Attending Doctor: Jason Blanchard DO Service Date: 01/08/21 1412 Discharge Summary Admit Date Admission Date Time: 12/04/20 Anticipated Discharge Date 12/06/20 Final Dx/Problem List 1. Right foot ulcer Patient discharge postop day 2 following IandD of fifth metatarsal. Group B beta-hemolytic strep grown on final cultures from surgery IV antibiotics per infectious disease IV ceftriaxone ordered per Dr. Mayers. Follow- up with infectious disease PICC line placed prior to discharge Weightbearing as tolerated in postop shoe Charged with home health care for wet-to-dry dressings and PICC line management. Return to diabetic diet Postop prescriptions Percocet and Zofran Return in 2 weeks with Nora Rodriguez PA-C On Wed 5:57a Dec 06, 2020 NORA RODRIGUEZ wrote Patient is postop day 2 following IandD of fifth metatarsal wound. DVT prophylaxis with SCDs and Lovenox and compression stockings on opposite leg Continue diabetic diet Still weightbearing as tolerated in postop shoe Wound care has been ordered. Wet-to-dry dressing change should be performed today. Patient will need to be discharged with home health care for wound care. Patient currently on Unasyn per infectious disease. Cultures for surgical tissue have started to grow beta-hemolytic strep group B. Sensitivities still to follow. Patient is stable from an orthopedic standpoint. We will plan to discharge when infectious disease gives prescription for home antibiotics. Will discuss with Dr. Blanchard On Thelma 7:39a Dec 05, 2020 NORA RODRIGUEZ wrote Patient is postop day 1 following IandD of fifth metatarsal wound. Antibiotics per infectious disease Still awaiting final cultures. Will not discharge patient until approved by infectious disease DVT prophylaxis with SCDs and Lovenox and compression stockings on opposite leg Diabetic diet Weightbearing as tolerated with assistance in postop shoe We will discuss with Dr. Blanchard 2. Osteomyelitis of foot, right, acute 3. Diabetes 4. Hyperlipidemia 5. Asthma 6. Hypothyroidism 7. Open wound of right foot Patient Problems Reviewed: Yes Chief Complaint/HPI 55-year-old female with right fifth metatarsal wound Reason for Admission Patient is a 55-year-old diabetic female who started to develop a wound over the right fifth metatarsal over the past couple weeks. She was seen in office for concern of osteomyelitis of the head of the fifth metatarsal. Patient presents to the hospital for I andD of the wound and cultures to determine proper antibiotic treatment to completely eradicate infection Operations/Procedures IandD of right fifth metatarsal wound Hospital Course Surgery, pain control, IandD consult, PICC line placement, discharge Vital Signs Vital Signs (Last) Result Date Time Pulse Ox 95 12/06 1550 B/P 125/60 12/06 1550 Temp 97.6 12/06 1550 Pulse 62 12/06 1550 Resp 18 12/06 1550 Pertinent Physical Findings Right lower extremity right foot postop dressing is clean dry and intact without excessive saturation. Dorsiflexion/plantarflexion 5/5, distal pulses 2+, negative Homans' sign Consults Infectious Disease Prescriptions Stop taking the following medications: Sulfamethoxazole/Trimethoprim* (Bactrim Ds Tab*) 1 EACH TABLET 1 UDTAB ORAL EVERY DAY Levocetirizine Dihydrochloride (Levocetirizine Dihydrochloride) 5 MG TABLET 5 MILLIGRAM ORAL EVERY DAY Continue taking these medications: Levothyroxine Sodium* (Synthroid 0.137MG Tab*) 137 MCG TABLET 0.137 MILLIGRAM ORAL ONCE DAILY BEFORE MEALS Liothyronine Sodium* (Cytomel 25MCG Tab*) 25 MCG TABLET 25 MICROGRAM ORAL EVERY DAY Baclofen* (Lioresal 10MG Tab*) 10 MG TABLET 10 MILLIGRAM ORAL EVERY EVENING Montelukast Sodium (Singulair) 10 MG TABLET 10 MILLIGRAM ORAL EVERY EVENING Cholecalciferol (Vitamin D3) (Vitamin D3) 125 MCG CAPSULE 125 MICROGRAM ORAL EVERY EVENING Multivitamin* (Multiple Vitamins Daily Tab*) 1 EACH TABLET 1 UDTAB ORAL EVERY DAY oxyCODONE HCL/ACETAMINOPHEN* (percoCET 5-325 TAB*) 1 EACH TABLET 1 UDTAB ORAL EVERY 6 HOURS NEEDED as needed for POST OP PAIN Qty = 28 Ondansetron HCl* (Zofran 4MG Tab*) 4 MG TABLET 4 MILLIGRAM ORAL EVERY 8 HOURS NEEDED as needed for NAUSEA Qty = 10 cefTRIAXone SODIUM (Rocephin 2GM Vial) 2 GM VIAL.PORT 2 GRAM INTRAVEN EVERY DAY Instructions: STOP DATE OF 01/01/21 WEEKLY CMP, CBC, ESR Referrals Ordered Referrals Orthopedics 12/19/20 For Providers: Jason Blanchard DO [address] [place] [address] Follow up 12/19/20 at 1pm with Nora. Condition: Stable Disposition Home w/ Home Health Care Disclaimer This dictation was created using voice recognition (more content not included)... Normal [facility] BLOOD CULTUREon 01-04-2021 Bacteria identified Cx Nom (Bld) NO GROWTH AFTER 5 DAYS [facility] Comment on above: Order Comment: Jesusita s: M Performed By: #### L 200.83813 #### [facility] [address] [place], [place] [id number] Bacteria identified Cx Nom (Bld) NO GROWTH AFTER 5 DAYS [facility] Comment on above: Order Comment: Jesusita s: M Performed By: #### L 550.89756 #### [facility] [address] [place] [address] 81017 URINE CULTUREon 01-01-2021 Bacteria identified Cx Nom (U) NO GROWTH AFTER 48 HOURS [facility] Comment on above: Performed By: #### L 200.10641 #### [facility] [address] [place] [address] BMPon 12-30-2020 Anion gap [Moles/Vol] 10 mmol/L Normal 5-16 [facility] Comment on above: Order Comment: Campu s: M Performed By: #### L 500.90005, L500.34384, L500.81011 ####[facility] [id number] [place], [place] [address]Cy# [phone] Calcium [Mass/Vol] 9.6 mg/dL Normal 8.5-10.5 [facility] Comment on above: Order Comment: Campu s: M Result Comment: NOTE NEW NORMAL RANGE DUE TO REAGENT CHANGE Performed By: #### L 500.71898, L500.98912, L500.18213 ####[facility] [id number] [place], [place] [address]Ha# [phone] Chloride [Moles/Vol] 102 mmol/L Normal 98-107 [facility] Comment on above: Order Comment: Campu s: M Performed By: #### L 500.70868, L500.30025, L500.57999 ####[facility] [id number] [place], [place] [address]Ww# [phone] CO2 [Moles/Vol] 22.0 mmol/L Normal 21-32 [facility] Comment on above: Order Comment: Campu s: M Performed By: #### L 500.56829, L500.54970, L500.22014 ####[facility] [id number] [place], [place] [address]Zx# [phone] Creatinine [Mass/Vol] 0.44 mg/dL Low 0.510-0.95 0 [facility] Comment on above: Order Comment: Campu s: M Result Comment: Palak ents receiving either N-Acetylcysteine (NAC) or Metamizole prior to venipuncture, may have falsely depressed results. Performed By: #### L 500.49957, L500.72213, L500.68717 ####[facility] [id number] [place], [place] [address]Es# [phone] Glucose [Mass/Vol] 273 mg/dL High 70-100 [facility] Comment on above: Order Comment: Campu s: M Result Comment: 70-1 00- Normal Fasting; 100-125 Impaired Fasting; greater than 126 on more than one result- Diabetes. ADA guidelines. Results may be falsely elevated after the administration of Sulfapyridine. Results may be falsely depressed after the administration of Sulfasalazine. Performed By: #### L 500.70324, L500.08753, L500.92243 ####[facility] [id number] [place], [place] [address]Zk# [phone] Potassium [Moles/Vol] 3.6 mmol/L Normal 3.5-5.1 [facility] Comment on above: Order Comment: Campu s: M Performed By: #### L 500.76995, L500.56633, L500.18113 ####[facility] HYFCONHSFQ5758 [place], [place] [address]Eh# [phone] Sodium [Moles/Vol] 134 mmol/L Low 136-145 [facility] Comment on above: Order Comment: Campu s: M Performed By: #### L 500.26987, L500.50712, L500.11824 ####[facility] [id number] [place], [place] [address]Yt# [phone] Urea nitrogen [Mass/Vol] 25 mg/dL Normal 7-26 [facility] Comment on above: Order Comment: Campu s: M Performed By: #### L 500.41854, L500.85026, L500.64335 ####[facility] [id number] [place], [place] [address]Ra# [phone] Urea nitrogen/Creatinin e [Mass ratio] 57 mg/mg High 15-24 [facility] Comment on above: Order Comment: Campu s: M Performed By: #### L 500.14481, L500.90750, L500.87838 ####[facility] [id number] [place], [place] [address]Yr# [phone] CBC W/DIFFon 12-30-2020 BASO ABS 0.10 K/CU MM Normal 0-0.2 [facility] Comment on above: Order Comment: Campu s: M Performed By: #### L 200.80633 ####[place] [address]Ph# [phone] Basophils/100 WBC (Bld) 0.7 % Normal 0-2 [facility] Comment on above: Order Comment: Campu s: M Performed By: #### L 200.86566 ####[address] [address]Xb# [phone] EOS ABS 0.20 K/CU MM Normal 0-0.5 [facility] Comment on above: Order Comment: Campu s: M Performed By: #### L 200.83743 ####[address] [address]Dx# [phone] Eosinophils/100 WBC (Bld) 2.4 % Normal 0-5 [facility] Comment on above: Order Comment: Campu s: M Performed By: #### L 200.59899 ####[address] [address]Pd# [phone] Erythrocyte distribution width (RBC) [Ratio] 12.2 % Normal 11-14.5 [facility] Comment on above: Order Comment: Campu s: M Performed By: #### L 200.91243 ####[facility] [id number] [place] [address]Zx# [phone] Hematocrit (Bld) [Volume fraction] 41.4 % Normal 35.0-47.0 [facility] Comment [facility] above: Order Comment: Campu s: M Performed By: #### L 200.76747 ####[facility] [id number] [place], [place] [address]Ph# [phone] Hemoglobin (Bld) [Mass/Vol] 14.1 g/dL Normal 11.5-15.5 [facility] Comment on above: Order Comment: Campu s: M Performed By: #### L 200.72569 ####[facility] [id number] [place] [address]Tb# [phone] IMMATR GRAN ABS 0.10 K/CU MM Normal Less than 2 [facility] Comment on above: Order Comment: Campu s: M Performed By: #### L 200.76228 ####[place] [address]Ph# [phone] IMMATURE GRAN % 0.8 % Normal Less than 2 [facility] Comment on above: Order Comment: Campu s: M Performed By: #### L 200.73346 ####[place] [address]Ph# [phone] LYMPH ABS 2.00 K/CU MM Normal 0.9-4.4 [facility] Comment on above: Order Comment: Campu s: M Performed By: #### L 200.77720 ####[place] [address]Ph# [phone] Lymphocytes/100 WBC (Bld) 26.3 % Normal 20-40 [facility] Comment on above: Order Comment: Campu s: M Performed By: #### L 200.20327 ####[facility] [id number] [place], [place] [address]Ph# [phone] MCHC (RBC) [Mass/Vol] 34.1 g/dL Normal 32.0-36.0 [facility] Comment on above: Order Comment: Campu s: M Performed By: #### L 200.69217 ####[facility] [id number] [place], [place] [address]Ph# [phone] MCV (RBC) [Entitic vol] 90.6 fL Normal 80.0-99.0 [facility] Comment on above: Order Comment: Campu s: M Performed By: #### L 200.71691 ####[facility] [id number] [place], [place] [address]Oa# [phone] MONO ABS 1.00 K/CU MM Normal 0.1-1.1 [facility] Comment on above: Order Comment: Campu s: M Performed By: #### L 200.16900 ####[facility] [id number] [place], [place] [address]Ph# [phone] Monocytes/100 WBC (Bld) 12.4 % High 2-10 [facility] Comment on above: Order Comment: Campu s: M Performed By: #### L 200.38610 ####[place] [address]Ph# [phone] NEUTROPHIL ABS 4.40 K/CU MM Normal 2.0-8.3 [facility] Comment on above: Order Comment: Campu s: M Performed By: #### L 200.36233 ####[facility] [id number] [place] [address]Hm# [phone] Neutrophils/100 WBC (Bld) 57.4 % Normal 45-75 [facility] Comment on above: Order Comment: Campu s: M Performed By: #### L 200.25929 ####[facility] [id number] [place] [address]Bf# [phone] Nucleated RBC/100 WBC (Bld) [Ratio] 0.0 % Normal Less than 1 [facility] Comment on above: Order Comment: Campu s: M Performed By: #### L 200.39719 ####[facility] [id number] [place] [address]Sb# [phone] Platelet mean volume (Bld) [Entitic vol] 9.9 fL Normal 9.4-12.4 [facility] Comment on above: Order Comment: Campu s: M Performed By: #### L 200.61714 ####[facility] [id number] [place], [place] [address]Ph# [phone] PLT 226 K/CU MM Normal 150-450 [facility] Comment on above: Order Comment: Campu s: M Performed By: #### L 200.93275 ####[facility] ENRYSTIXUY6329 [place], [place] [address]Na# [phone] RBC 4.57 M/CU MM Normal 3.90-5.30 [facility] Comment on above: Order Comment: Campu s: M Performed By: #### L 200.19567 ####[facility] [id number] [place], [place] [address]Wo# [phone] WBC 7.6 K/CUMM Normal 4.5-11.0 [facility] Comment on above: Order Comment: Campu s: M Performed By: #### L 200.26629 ####[facility] [id number] [place], [place] [address]Si# [phone] CT [facility]/PEL W IV CONTRAST ONLY CT ABD/PEL W IV CONTRAST ONLY CLINICAL HISTORY: Diffuse low back pain, fevers TECHNIQUE: CT of the abdomen and pelvis was performed using standard technique, scanning from just above the dome of the diaphragm to the symphysis pubis. MQ: CTAP_3 Contrast: IV: 100 ml of Isovue-300 CT Radiation dose: Integrated Dose-length product (DLP) for this visit = 812 mGy*cm. CT Dose Reduction Employed: Automatic exposure control. Iterative reconstruction. COMPARISON: None. RESULT: Lower thorax: Lung bases are clear. Liver: No liver lesion. Gallbladder: Cholecystectomy. Pancreas: No pancreatic lesion. Spleen: No splenomegaly. Adrenals: No adrenal lesion. Kidneys: No hydronephrosis. Punctate nonobstructing right renal calculus. No renal lesion. GI tract: No bowel obstruction. No acute inflammatory changes. No appendicitis. Sigmoid diverticulosis without acute diverticulitis. Pelvis: No free fluid. No bladder calculus. Mesentery / Retroperitoneum: No adenopathy. Atherosclerotic calcification of the abdominal aorta. No aneurysmal dilatation. Bones/Soft Tissues: No acute soft tissue abnormality. Lumbar spine degenerative changes with posterior decompression. IMPRESSION: No acute intra-abdominal process. This report was electronically signed by Griselda Mercado MD 12/30/2020 8:00 PM Reported By: GRISELDA MERCADO MD Signed By: GRISELDA MERCADO MD [facility] EKGon 12-30-2020 Electrocardiogram Procedure Date and T leroy: 12/30/20 1724 Test Reason : STAT Blood Pressure : / mmHG Vent. Rate : 088 BPM Atrial Rate : 088 BPM P-R Int : 138 ms QRS Dur : 084 ms QT Int : 364 ms P-R-T Axes : 034 050 050 degrees QTc Int : 440 ms Normal sinus rhythm Normal ECG When compared with ECG of 18-AUG-2010 14:05, No significant change was found Confirmed by PETER VU A. ([id number]) on 12/30/2020 7:53:46 PM Referred By: Raffaele Reyes Confirmed By:Alejandro VU M.D.FACC ____ Danae DDandT: 12/30/201723 TDandT: [facility] PATIENT NAME: PHYLICIA FALK [facility] Dr[facility] Schmid MEDICAL REC #: [id number] [place] [address] ADMIT DATE: DISCHARGE DATE: ATTENDING PHY: Beatriz Arreola,Emergency Physi ELECTROCARDIOGRAM REPORT CLB cc: [facility] PATIENT NAME: PHYLICIA FALK [facility] Dr[facility] Schmid MEDICAL REC #: [id number] [place] [address] ADMIT DATE: DISCHARGE DATE: ATTENDING PHY: Beatriz Arreola,Emergency Physi ELECTROCARDIOGRAM REPORT [facility] Yessi 12-30-2020 EMERGENCY PHYSICIAN REPORT This is a preliminary report only, as the practitioner review and authentication has not occurred. [facility] ER PHYSICIAN ASSESSMENT RECORDS : Discharge Report Event Time: 12/30/2020 21:19 : FlexChartData Event Time: 12/30/2020 21:50 Status: Signed [facility] Phylicia Falk [[id number]] Attending Physician 55 / F / 1965 Chart (V2b) Chart created at 12/30/2020 21:14 by Raffaele Reyes Chart closed at 12/30/2020 21:18 Entry in Emergency Department at 12/30/2020 12:45, departure at 12/30/2020 21:43 Patient Name: Phylicia Falk Record Number: [id number] Date: 12/30/2020 21:14 Entered Department at: 12/30/2020 12:45 Patient Seen at: 12/30/2020 17:12 Historian: Patient PCP: Cuong Trujillo Chief Complaint:PT REPORTS WEAKNESS AND LOWER BACK PAIN. PT IS GETTING ANTIBIOTIC THERAPY FOR WOUNDS TO THE FEET. PT DENIES COVID. Temperature: 98.6 F (37 C). Pulse: 110. Respiratory Rate: 20. Blood-pressure: 134/63. Oxygen Saturation: 96%. History of Present Illness: 55-Year-old female, currently on IV antibiotics (Rocephin) for what sounds like an osteomyelitis in her right foot. That is actually been showing a lot of improvement since her surgery. She is only got a couple more days of IV antibiotics. She states that for the [facility] PATIENT NAME: PHYLICIA FALK L [address] [facility] [address] Schmid MEDICAL REC #: [id number] [place] [address] EMERGENCY DEPARTMENT REPORT EMERGENCY DEPARTMENT PHYSICIAN last several days she is having increasing feelings of weakness. Some discomfort across her lower back. Some feelings of nausea, being feverish as well. States that her glucose has been high. She denies dysuria. But she has been having some diarrhea. Review of Systems. All other systems reviewed and negative.. Past History, Medications, Allergies, Social History and Family History reviewed in nurses note. Medications: Reviewed RN Note. cytomel 25mcg daily , levothyroxine 150mcg daily , xyzal 5mg po , singular 10mg po , armodafinil 150mg po , baclofen 10mg po , rocephin 2gm iv daily Allergies: Reviewed RN Note Clindamycin(Hives), LYRICA(Swelling) Social History: Reviewed RN Note. Family History: Reviewed RN Note Physical Examination: General: Alert and Well Developed; Alert, no distress, vitals appear stable. She does not appear toxic HEENT: Normal ENT inspection. Neck: Supple Respiratory: No Resp Distress; Clear in the apex diminished in the bases but no respiratory distress Cardio-Vascular: RRR; Careful auscultation revealed no murmurs Abdomen: Soft; No peritoneal findings Back: Vague discomfort in her lower back with movement. No midline tenderness. Extremity: Line in the right upper arm without signs of inflammation or redness. The rest of the extremities were unremarkable. The right foot reveals a small ulceration on the MTP joint of the fifth digit which does not appear actively infected at this time. And according to the patient it is much smaller than it had been. Neurological: Alert, Oriented X3 and No Gross Weakness Skin: Warm and Dry Psychological: Mood/Affect Normal and Normal [facility] PATIENT NAME: PHYLICIA FALK [address] [facility] [address] Schmid MEDICAL REC #: [id number] [place] [address] EMERGENCY DEPARTMENT REPORT EMERGENCY DEPARTMENT PHYSICIAN Memory/Judgment Cardiogram: Interpreted by me. Interpretation: Sinus rhythm, rate 88, no ST elevation infarct pattern. Is an otherwise normal study, no significant change from July 2010 Radiology: Interpreted by Radiologist. Medical Decision Making So the patient has a variety of different symptoms. We have given her some IV fluids here. Her urine did show some ketones and she may be a bit on the dehydrated side. Her EKG does not look abnormal. She is unable to produce a stool specimen here in the emergency room. Her urinalysis showed a few white cells, but I am not convinced that she has a UTI. I will do a urine culture rather than empiric treatment (since she is currently on IV antibiotic). She will need a stool study. CAT scan of the abdomen did not reveal any acute abnormalities. So at this point, the etiology of her symptoms is a bit unclear. I that she may have C. difficile possibly from her recent antibiotic use. But she certainly does not appear toxic. And I do not think empiric treatment is needed at this time, I do recommend getting stool studies first. Clinically she looks well enough to go home with continued symptomatic treatment as she has been doing. Let some Zofran for nausea. Stool studies as an outpatient and close follow-up as an outpatient. Clinical Impression: 1. Mild dehydration 2. Diarrhea 3. Resolving foot infection 4. COVID-19 negative Disposition: Discharged *Home. (more content not included)... [facility] IF AMER Greater than 60 Normal [facility] Comment on above: Order Comment: Campu s: M Performed By: #### L 500.18043, L500.71149, L500.99134 ####[facility] [id number] [place], [place] [address]Iz# [phone] IF non-AFR AMER Greater than 60 Normal [facility] Comment on above: Order Comment: Campu s: M Performed By: #### L 500.94124, L500.25419, L500.81869 ####[facility] [id number] [place], [place] [address]En# [phone] LACTATE BLOODon 12-30-2020 LACTATE BLOOD 1.55 MMOL/L Normal 0.40-2.00 [facility] Comment on above: Order Comment: Campu s: M Performed By: #### L 550.02867 #### [facility] [address] [place] [address] LIVERon 12-30-2020 Albumin [Mass/Vol] 3.5 g/dL Normal 3.2-5.0 [facility] Comment on above: Order Comment: Campu s: M Performed By: #### L 550.68418 #### [facility] [address] [place] [address] Albumin/Globulin [Mass ratio] 1.0 {ratio} Normal 0.8-2.0 [facility] Comment on above: Order Comment: Campu s: M Performed By: #### L 550.73883 #### [facility] [address] [place] [address] ALK PHOS 103 U/L Normal 45-117 [facility] Comment on above: Order Comment: Campu s: M Performed By: #### L 550.97291 #### [facility] [address] [place] [address] ALT [Catalytic activity/Vol] 31 U/L Normal 13-61 [facility] Comment on above: Order Comment: Campu s: M Result Comment: RESU LTS MAY BE FALSELY DEPRESSED AFTER THE ADMINISTRATION OF SULFASALAZINE AND/OR SULFAPYRIDINE. Performed By: #### L 550.62587 #### [facility] [address] [place] [address] AST [Catalytic activity/Vol] 16 U/L Normal 8-34 [facility] Comment on above: Order Comment: Campu s: M Result Comment: RESU LTS MAY BE FALSELY DEPRESSED AFTER THE ADMINISTRATION OF SULFASALAZINE AND/OR SULFAPYRIDINE. Performed By: #### L 550.83223 #### [facility] [address] [place], [place] [address] BILI DIRECT 0.3 MG/DL Normal 0.00-0.36 [facility] Comment on above: Order Comment: Campu s: M Result Comment: NOTE NEW NORMAL RANGE DUE TO REAGENT CHANGE Performed By: #### L 550.20502 #### [facility] [address] [place] [address] BILI TOTAL 0.90 MG/DL Normal 0.2-1.0 [facility] Comment on above: Order Comment: Ruiu s: M Performed By: #### L 550.18466 #### [facility] [address] [place], [place] [address] Globulin (S) [Mass/Vol] 3.6 g/dL Normal 2.2-4.2 [facility] Comment on above: Order Comment: Campu s: M Performed By: #### L 550.36286 #### [facility] [address] [place] [address] Protein [Mass/Vol] 7.1 g/dL Normal 6.0-8.5 [facility] Comment on above: Order Comment: Campu s: M Performed By: #### L 550.89145 #### [facility] [address] [place], [place] [address] PTon 12-30-2020 INR Coag (PPP) [Relative time] 1.02 {INR} Normal 0.9-1.1 [facility] Comment on above: Order Comment: Ruiu s: M Result Comment: Jan mmended PT INR therapeutic range for oysterman and prophylactic therapy is 2.0 - 3.0. For heart valve and shunt patients the range is 2.5 - 3.5. Performed By: #### L 300.01849, L300.11859 #### [facility] [address] [place] [address] PTS 10.9 SECONDS Normal 9.5-12.0 [facility] Comment on above: Order Comment: Ruiu s: M Performed By: #### L 300.16950, L300.23942 #### [facility] [address] [place] [address] PTTon 12-30-2020 aPTT Coag (Bld) [Time] 51.1 s High 22.0-31.5 [facility] Comment on above: Order Comment: Jesusita s: M Result Comment: Ther apeutic Heparin Reference Range: High Dose: 46-75 seconds (DVT/PE) Low Dose: 39-60 seconds (Acute Coronary Syndrome) For low molecular weight heparin or danaparoid, monitoring is often NOT necessary, but the heparin assay, Xa inhibition assay (send-out) may be used in certain circumstances, as the PTT is generally insensitive to the effect of these agents. Direct thrombin inhibitors are becoming more widely utilized and these drugs are often monitored using the PTT. Performed By: #### L 300.39372, L300.00808 #### [facility] [address] [place] [address] [id number] 12-30-2020 SARS-CoV-2 (COVID-19) RNA LAUREN+probe Ql (Unsp spec) Negative Invalid Interpretation Code Negative [facility] Comment on above: Order Comment: Jesusita s: M Result Comment: RESU LTS CALLED TO Elly CAREY/ED AT 200912/30/20 BY EDWIN PIZANO Negative results do not preclude SARS-CoV-2 infection and should not be used as the sole basis for treatment or other patient management decisions. Negative results must be combined with clinical observation, patient history, and epidemiological information. This test was performed by PCR. Performed By: #### L 200.42171 #### [facility] [address] [place] [address] TROPONIN Ion 12-30-2020 Troponin I.cardiac [Mass/Vol] 2.5 ng/mL Normal 0-34 [facility] Comment on above: Order Comment: Jesusita s: M Result Comment: NOTE NEW NORMAL RANGE DUE TO REAGENT CHANGE This assay uses different antibodies than our current assay, and assays, even by the same driver guard may recognize different regions of the antibody and cannot be used interchangeably. Expect results of this assay to run higher than the previous assay. Performed By: #### L 550.42033 #### [facility] [address] [place] [address] UA COMPLETEon 12-30-2020 UA LK ESTERASE 75 Normal NEGATIVE [facility] Comment on above: Order Comment: Campu s: M Performed By: #### L 550.84560 #### [facility] [address] [place] [address] UA WBC 19 WBC/HPF High 0-5 [facility] Comment on above: Order Comment: Campu s: M Performed By: #### L 550.71773 #### [facility] [address] [place] [address] Color (U) Kyara Normal [facility] Comment on above: Order Comment: Campu s: M Performed By: #### L 550.02611 #### [facility] [address] [place] [address] Glucose (U) [Mass/Vol] 500 mg/dL Normal NORMAL [facility] Comment on above: Order Comment: Campu s: M Performed By: #### L 550.70475 #### [facility] [place] [address] Mucus Ql (Urine sed) 2+ Normal NEGATIVE [facility] Comment on above: Order Comment: Campu s: M Performed By: #### L 550.09601 #### [facility] [place] [address] SQUAMOUS EPIS 5 EPI/HPF Normal 0-5 [facility] Comment on above: Order Comment: Campu s: M Performed By: #### L 550.21123 #### [facility] [address] [place] [address] UA APPEARANCE Hazy Normal CLEAR [facility] Comment on above: Order Comment: Campu s: M Performed By: #### L 550.67374 #### [facility] [address] [place] [address] UA BACTERIA TRACE Normal NONE [facility] Comment on above: Order Comment: Campu s: M Performed By: #### L 550.72131 #### [facility] [address] [place] [address] UA BILIRUBIN Negative Normal NEGATIVE [facility] Comment on above: Order Comment: Campu s: M Performed By: #### L 550.46228 #### [facility] [address] [place] [address] UA BLOOD Negative Normal NEGATIVE [facility] Comment on above: Order Comment: Campu s: M Performed By: #### L 550.93727 #### [facility] [address] [place], [place] [address] UA KETONE 80 Normal NEGATIVE [facility] Comment on above: Order Comment: Campu s: M Performed By: #### L 550.20291 #### [facility] [address] [place], [place] [address] UA NITRITE Negative Normal NEGATIVE [facility] Comment on above: Order Comment: Campu s: M Performed By: #### L 550.86204 #### [facility] [address] [place] [address] UA PH 5.0 Normal 5-6 [facility] Comment on above: Order Comment: Campu s: M Performed By: #### L 550.11888 #### [facility] [address] [place] [address] UA PROTEIN 30 Normal NEGATIVE [facility] Comment on above: Order Comment: Campu s: M Performed By: #### L 550.59161 #### [facility] [address] [place] [address] UA RBC 5 RBC/HPF High 0-3 [facility] Comment on above: Order Comment: Campu s: M Performed By: #### L 550.53429 #### [facility] [address] [place] [address] UA SPEC GRAV 1.036 Normal 1.005-1.03 0 [facility] Comment on above: Order Comment: Campu s: M Performed By: #### L 550.42098 #### [facility] [address] [place] [address] UA UROBILINOGEN Negative Normal NORMAL [facility] Comment on above: Order Comment: Campu s: M Performed By: #### L 550.94810 #### [facility] [address] [place] [address] GLUCOSE METERon 12-09-2020 Glucose [Mass/Vol] 259 mg/dL High 85-125 [facility] ANAER CULTUREon 12-07-2020 ANAER CULTURE RESULT NO GROWTH OF ANAEROBES Normal [facility] Comment on above: Order Comment: Campu s: M Performed By: #### L 550.36739 #### [facility] [address] [place] [address] CBCon 12-06-2020 Erythrocyte distribution width (RBC) [Ratio] 11.9 % Normal 11-14.5 [facility] Comment on above: Order Comment: Campu s: M Performed By: #### L 200.71914 #### [facility] [address] [place] [address] Hematocrit (Bld) [Volume fraction] 39.2 % Normal 35.0-47.0 [facility] Comment on above: Order Comment: Campu s: M Performed By: #### L 200.07291 #### [facility] [address] [place] [address] Hemoglobin (Bld) [Mass/Vol] 12.9 g/dL Normal 11.5-15.5 [facility] Comment on above: Order Comment: Campu s: M Performed By: #### L 200.86005 #### [facility] [address] [place], [place] [address] MCHC (RBC) [Mass/Vol] 32.9 g/dL Normal 32.0-36.0 [facility] Comment on above: Order Comment: Campu s: M Performed By: #### L 200.09006 #### [facility] [address] [place], [place] [address] MCV (RBC) [Entitic vol] 94.2 fL Normal 80.0-99.0 [facility] Comment on above: Order Comment: Campu s: M Performed By: #### L 200.23275 #### [facility] [address] [place] [address] Nucleated RBC/100 WBC (Bld) [Ratio] 0.0 % Normal Less than 1 [facility] Comment on above: Order Comment: Campu s: M Performed By: #### L 200.41371 #### [facility] [address] [place] [address] Platelet mean volume (Bld) [Entitic vol] 9.8 fL Normal 9.4-12.4 [facility] Comment on above: Order Comment: Campu s: M Performed By: #### L 200.91919 #### [facility] [address] [place], [place] [address] PLT 222 K/CU MM Normal 150-450 [facility] Comment on above: Order Comment: Campu s: M Performed By: #### L 200.36490 #### [facility] [address] [place], [place] [address] RBC 4.16 M/CU MM Normal 3.90-5.30 [facility] Comment on above: Order Comment: Campu s: M Performed By: #### L 200.60061 #### [facility] [address] [place], [place] [address] WBC 8.3 K/CUMM Normal 4.5-11.0 [facility] Comment on above: Order Comment: Campu s: M Performed By: #### L 200.74393 #### [facility] [address] [employer] [place]# [phone] GLUCOSE METERon 12-06-2020 Glucose [Mass/Vol] 290 mg/dL High 85-125 [facility] Glucose [Mass/Vol] 255 mg/dL High 85-125 [facility] Glucose [Mass/Vol] 258 mg/dL High 85-125 [facility] PROG.NOTEon 12-06-2020 PROG.NOTE [facility] Patient Name: [facility]YLICIA FALK [address] [facility] Date of : [address] [address] Unit Number: [id number] Progress Note-Physician Patient Status: REG SDC Attending Doctor: Jason Blanchard DO Service Date: 12/06/20 0950 Subjective S: (2 ROS minimum) Patient overall clinically stable. Had uneventful night. No fever. Tolerating Unasyn well. Objective (ROS) Nursing Vitals Vital Signs (Last) Result Date Time Pulse Ox 97 12/06 0801 B/P 139/71 12/06 0801 Temp 98.0 12/06 0801 Pulse 70 12/06 0801 Resp 16 12/06 0801 Alert responsive does not appear toxic lungs are clear heart exam S1-S2 abdomen soft nontender. Right foot dressing was taken down, no surrounding erythema. There is packing in the surgical wound. Laboratory Tests 12/06 12/06 12/05 12/05 12/05 0643 0640 2153 1558 1104 Chemistry Whole Bld Glucose (85 - 125 MG/DL) 255 H 258 H 237 H 260 H Hematology WBC (4.5 - 11.0 K/CUMM) 8.3 RBC (3.90 - 5.30 M/CU MM) 4.16 Hgb (11.5 - 15.5 G/DL) 12.9 Hct (35.0 - 47.0 %) 39.2 MCV (80.0 - 99.0 fl) 94.2 MCHC (32.0 - 36.0 GM/DL) 32.9 RDW (11 - 14.5) 11.9 Plt Count (150 - 450 K/CU MM) 222 MPV (9.4 - 12.4) 9.8 Nucleated RBCs (Less than 1 %) 0.0 12/05 12/05 12/05 12/04 12/04 0614 0614 0570 2248 1326 Chemistry Sodium (136 - 145 MMOL/L) 138 Potassium (3.5 - 5.1 MMOL/L) 3.9 Chloride (98 - 107 MMOL/L) 105 Carbon Dioxide (21 - 32 MMOL/L) 26.0 Anion Gap (5 - 16 MMOL/L) 7 BUN (7 - 26 MG/DL) 21 Creatinine (0.510 - 0.950 MG/DL) 0.45 L Est GFR ( Amer) Greater than 60 Est GFR (Non-Af Amer) Greater than 60 BUN/Creatinine Ratio (15 - 24) 47 H Glucose (70 - 100 MG/DL) 244 H Whole Bld Glucose (85 - 125 MG/DL) 225 H 274 H 222 H Hemoglobin A1c (4.3 - 6.0 %) 12.2 H Total Calcium (8.5 - 10.5 MG/DL) 8.8 Iron (50 - 170 UG/DL) 88 TIBC (221 - 481 UG/DL) 351 Iron Saturation (22 - 44 %) 25 Ferritin (8.0 - 307.0 NG/ML) 227.0 Hematology WBC (4.5 - 11.0 K/CUMM) 7.8 RBC (3.90 - 5.30 M/CU MM) 4.07 Hgb (11.5 - 15.5 G/DL) 12.6 Hct (35.0 - 47.0 %) 38.1 MCV (80.0 - 99.0 fl) 93.6 MCHC (32.0 - 36.0 GM/DL) 33.1 RDW (11 - 14.5) 12.1 Plt Count (150 - 450 K/CU MM) 219 MPV (9.4 - 12.4) 9.7 Nucleated RBCs (Less than 1 %) 0.0 12/04 12/04 12/04 1238 1213 1124 Chemistry Sodium (136 - 145 MMOL/L) 136 Potassium (3.5 - 5.1 MMOL/L) 4.4 Chloride (98 - 107 MMOL/L) 105 Carbon Dioxide (21 - 32 MMOL/L) 24.0 Anion Gap (5 - 16 MMOL/L) 7 BUN (7 - 26 MG/DL) 30 H Creatinine (0.510 - 0.950 MG/DL) 0.56 Est GFR ( Amer) Greater than 60 Est GFR (Non-Af Amer) Greater than 60 BUN/Creatinine Ratio (15 - 24) 54 H Glucose (70 - 100 MG/DL) 293 H Whole Bld Glucose (85 - 125 MG/DL) 325 H 347 H Total Calcium (8.5 - 10.5 MG/DL) 9.5 Hematology WBC (4.5 - 11.0 K/CUMM) 10.1 RBC (3.90 - 5.30 M/CU MM) 4.66 Hgb (11.5 - 15.5 G/DL) 14.4 Hct (35.0 - 47.0 %) 42.4 MCV (80.0 - 99.0 fl) 91.0 MCHC (32.0 - 36.0 GM/DL) 34.0 RDW (11 - 14.5) 11.9 Plt Count (150 - 450 K/CU MM) 244 MPV (9.4 - 12.4) 9.7 Nucleated RBCs (Less than 1 %) 0.0 Assessment and Plan Conclusion 1. Open wound of right foot Complicated right foot infection in a diabetic host, group B beta-hemolytic strep isolated from the intraoperative culture. At this time we will treat with ceftriaxone 2 g IV daily , will set up a PICC line for IV access and continue parenteral antibiotic therapy for a total of 4 weeks from the time of surgery, stop date will be January 01, weekly blood work also ordered on the prescription. On Thelma 9:31a Dec 05, 2020 DECLAN PAEZ wrote Continue empiric Unasyn for now and closely followed intraoperative culture from yesterday. Continue supportive care. Improved Stay Reason/Anticipated Disch Continuing IV Antibiotics DC Disposition Plan Plan for long-term ceftriaxone through January 01. Disclaimer This dictation was created using voice recognition software. Phonetic and/or minor grammatical errors may exist. eSign Date and Time Addison Paez Verified/Reviewed by 12/06/20 0952 [facility] Progress Note-Physician [facility] PROG.ORTHOon 07-16-2021 PROG.[facility] Patient Name: PHYLICIA FALK [address] Date of : [address] [place] [address] Unit Number: [id number] Progress Note-Ortho Patient Status: REG SDC Attending Doctor: Jason Blanchard DO Service Date: 12/06/20 0550 Progress Note - Ortho Subjective S: (2 ROS minimum) Patient is lying down in bed. She does not have many complaints about her foot, but she states that she does have a headache that has been bothersome. It is lasted for several days. Motrin was able to get under control yesterday but it is been persistent today. Otherwise denies shortness of breath and chest pain. She is postop day 2 following IandD of right fifth metatarsal wound. Objective Nursing Vitals Vital Signs (Last) Result Date Time Pulse Ox 96 12/06 003 B/P 123/66 12/06 36 Temp 98.2 12/06 003 Pulse 71 12/06 0037 Resp 20 12/06 003 Physical Exam Right lower extremity right foot postop dressing is clean dry and intact. There is a small amount of bloody drainage noted on the Sebastian wrap. Circulation normal. Distal pulses 2+. Diagnostic Data Lab 24hr (CBC/BMP [facility]) 12/05/20 2153: Whole Bld Glucose 258 H 12/05/20 1558: Whole Bld Glucose 237 H 12/05/20 1104: Whole Bld Glucose 260 H 12/05/20 0614: Hemoglobin A1c 12.2 H 12/05/20 0614: [Embedded Image Not Available] Anion Gap 7, Est GFR ( Amer) Greater than 60, Est GFR (Non-Af Amer) Greater than 60 , BUN/Creatinine Ratio 47 H, Glucose 244 H, Total Calcium 8.8, Iron 88, TIBC 351, Iron Saturation 25, Ferritin 227.0, RBC 4.07, MCV 93.6, MCHC 33.1, RDW 12.1, MPV 9.7, Nucleated RBCs 0.0 Assessment/Plan Conclusion 1. Right foot ulcer Patient is postop day 2 following IandD of fifth metatarsal wound. DVT prophylaxis with SCDs and Lovenox and compression stockings on opposite leg Continue diabetic diet Still weightbearing as tolerated in postop shoe Wound care has been ordered. Wet-to-dry dressing change should be performed today. Patient will need to be discharged with home health care for wound care. Patient currently on Unasyn per infectious disease. Cultures for surgical tissue have started to grow beta-hemolytic strep group B. Sensitivities still to follow. Patient is stable from an orthopedic standpoint. We will plan to discharge when infectious disease gives prescription for home antibiotics. Will discuss with Dr. Blanchard On Thelma 7:39a Dec 05, 2020 NORA RODRIGUEZ wrote Patient is postop day 1 following IandD of fifth metatarsal wound. Antibiotics per infectious disease Still awaiting final cultures. Will not discharge patient until approved by infectious disease DVT prophylaxis with SCDs and Lovenox and compression stockings on opposite leg Diabetic diet Weightbearing as tolerated with assistance in postop shoe We will discuss with Dr. Blanchard 2. Osteomyelitis of foot, right, acute 3. Diabetes 4. Hyperlipidemia 5. Asthma 6. Hypothyroidism 7. Open wound of right foot Collaborating Physician Jason Blanchard DO Disclaimer This dictation was created using voice recognition software. Phonetic and/or minor grammatical errors may exist. eSign Date and Time Nora Rodriguez PAC Verified/Reviewed by 12/06/20 0557 Jason Blanchard DO [facility] Progress Note-Ortho Normal [facility] SURG TISSUEon 12-06-2020 SURG TISSUE GRAM STAIN NO WBC'S SEEN NO ORGANISMS SEEN ORGANISM 1: STREPTOCOCCUS AGALACTIAE GRP.B QUANTITATION FEW STREPTOCOCCUS AGALACTIAE GRP.B: REACTION AMPICILLIN 0.12 S CEFEPIME <0.25 S CHLORAMPHENICOL 4 S CLINDAMYCIN >0.5 R PENICILLIN 0.06 S TETRACYCLINE >4 R LEVOFLOXACIN 0.5 S Normal [facility] Comment on above: Order Comment: Jesusita s: M Performed By: #### L [id number] #### [facility] [address] [place] [address] 407[address] BMPon 12-05-2020 Anion gap [Moles/Vol] 7 mmol/L Normal - [facility] Comment on above: Order Comment: Jesusita s: M Performed By: #### L 550.73520 #### [facility] [address] [place] [address] Calcium [Mass/Vol] 8.8 mg/dL Normal 8.5-10.5 [facility] Comment on above: Order Comment: Campu s: M Result Comment: NOTE NEW NORMAL RANGE DUE TO REAGENT CHANGE Performed By: #### L 550.72329 #### [facility] [address] [place] [address] Chloride [Moles/Vol] 105 mmol/L Normal 98-107 [facility] Comment on above: Order Comment: Campu s: M Performed By: #### L 550.54322 #### [facility] [address] [place] [address] CO2 [Moles/Vol] 26.0 mmol/L Normal 21-32 [facility] Comment on above: Order Comment: Campu s: M Performed By: #### L 550.18716 #### [facility] [address] [place] [address] Creatinine [Mass/Vol] 0.45 mg/dL Low 0.510-0.95 0 [facility] Comment on above: Order Comment: Campu s: M Result Comment: Palak ents receiving either N-Acetylcysteine (NAC) or Metamizole prior to venipuncture, may have falsely depressed results. Performed By: #### L 550.13882 #### [facility] [address] [place] [address] Glucose [Mass/Vol] 244 mg/dL High 70-100 [facility] Comment on above: Order Comment: Campu s: M Result Comment: 70-1 00- Normal Fasting; 100-125 Impaired Fasting; greater than 126 on more than one result- Diabetes. ADA guidelines. Results may be falsely elevated after the administration of Sulfapyridine. Results may be falsely depressed after the administration of Sulfasalazine. Performed By: #### L 550.04857 #### [facility] [address] [place], [place] [address] Potassium [Moles/Vol] 3.9 mmol/L Normal 3.5-5.1 [facility] Comment on above: Order Comment: Campu s: M Performed By: #### L 550.06803 #### [facility] [address] [place] [address]68[address] Sodium [Moles/Vol] 138 mmol/L Normal 136-145 [facility] Comment on above: Order Comment: Campu s: M Performed By: #### L 550.24514 #### [facility] [address] [place] [address]13 Urea nitrogen [Mass/Vol] 21 mg/dL Normal 7-26 [facility] Comment on above: Order Comment: Campu s: M Performed By: #### L 550.69486 #### [facility] [address] [place] [address] Urea nitrogen/Creatinin e [Mass ratio] 47 mg/mg High 15-24 [facility] Comment on above: Order Comment: Campu s: M Performed By: #### L 550.34058 #### [facility] [address] [place] [address] 938[address] CBCon 12-05-2020 Erythrocyte distribution width (RBC) [Ratio] 12.1 % Normal 11-14.5 [facility] Comment on above: Order Comment: Campu s: M Performed By: #### L 200.17373 #### [facility] [address] [place] [address] 81035 Hematocrit (Bld) [Volume fraction] 38.1 % Normal 35.0-47.0 [facility] Comment on above: Order Comment: Campu s: M Performed By: #### L 200.96930 #### [facility] [address] [place] [address] 54105 Hemoglobin (Bld) [Mass/Vol] 12.6 g/dL Normal 11.5-15.5 [facility] Comment on above: Order Comment: Campu s: M Performed By: #### L 200.03280 #### [facility] [address] [place] [address] MCHC (RBC) [Mass/Vol] 33.1 g/dL Normal 32.0-36.0 [facility] Comment on above: Order Comment: Campu s: M Performed By: #### L 200.22632 #### [facility] [address] [place] [address] MCV (RBC) [Entitic vol] 93.6 fL Normal 80.0-99.0 [facility] Comment on above: Order Comment: Campu s: M Performed By: #### L 200.65109 #### [facility] [address] [place] [address] Nucleated RBC/100 WBC (Bld) [Ratio] 0.0 % Normal Less than 1 [facility] Comment on above: Order Comment: Campu s: M Performed By: #### L 200.09383 #### [facility] [address] [place] [address] Platelet mean volume (Bld) [Entitic vol] 9.7 fL Normal 9.4-12.4 [facility] Comment on above: Order Comment: Campu s: M Performed By: #### L 200.39023 #### [facility] [address] [place] [address] PLT 219 K/CU MM Normal 150-450 [facility] Comment on above: Order Comment: Campu s: M Performed By: #### L 200.79575 #### [facility] [address] [place] [address] RBC 4.07 M/CU MM Normal 3.90-5.30 [facility] Comment on above: Order Comment: Campu s: M Performed By: #### L 200.01458 #### [facility] [address] [place] [address] WBC 7.8 K/CUMM Normal 4.5-11.0 [facility] Comment on above: Order Comment: Ruiu s: M Performed By: #### L 200.77038 #### [facility] [address] [place] [address] Gabriel 12-05-2020 FERR 227.0 NG/ML Normal 8.0-307.0 [facility] Comment on above: Order Comment: Campu s: M Performed By: #### L 550.12847 #### [facility] [address] [place] [address] GFR ESTon 12-05-2020 IF AMER Greater than 60 Normal [facility] Comment on above: Order Comment: Campu s: M Performed By: #### L 550.03313 #### [facility] [address] [place] [address] 73159 IF non-AFR AMER Greater than 60 Normal [facility] Comment on above: Order Comment: Campu s: M Performed By: #### L 550.20127 #### [facility] [address] [place] [address]309 GLUCOSE METERon 12-05-2020 Glucose [Mass/Vol] 237 mg/dL High 85-125 [facility] [place] Glucose [Mass/Vol] 260 mg/dL High 85-125 [facility] [place] Glucose [Mass/Vol] 225 mg/dL High 85-125 [facility] Gl[facility] [Mass/Vol] 274 mg/dL High 85-125 [facility] HGB A1C GLYCOHBon 12-05-2020 HbA1c (Bld) [Mass fraction] 12.2 % High 4.3-6.0 [facility] Comment on above: Order Comment: Campu s: M Performed By: #### L 200.45459 #### [facility] [address] [place] [address] IRON PANELon 12-05-2020 Iron [Mass/Vol] 88 ug/dL Normal 50-170 [facility] Comment on above: Order Comment: Jesusita s: M Result Comment: Palak ents treated with metal-binding drugs (e.g.deferoxamine) may have depressed iron values, as chelated iron may not properly react in the Siemens iron assay. Performed By: #### L 550.12640 #### [facility] [address] [place] [address] IRON SAT 25 % Normal 22-44 [facility] Comment on above: Order Comment: Jesusita s: M Performed By: #### L 550.69906 #### [facility] [address] [place] [address] 06960 TIBC 351 UG/DL Normal 221-481 [facility] Comment on above: Order Comment: Jesusita s: M Performed By: #### L 550.41023 #### [facility] [address] [place] [address] PROG.NOTEon 12-05-2020 PROG.NOTE [facility] Patient Name: PHYLICIA FALK [address] [place] [address] Date of : [address] [address] Unit Number: [id number] Progress Note-Physician Patient Status: REG [facility] Attending Doctor: Jason Blanchard DO Service Date: 12/05/20928 Subjective S: (2 ROS minimum) Patient alert overall clinically stable. Remains euthermic. Tolerating Unasyn well. Micro data from yesterday's operative specimen pending. Objective (ROS) Nursing Vitals Vital Signs (Last) Result Date Time Pulse Ox 96 12/05 0305 B/P 134/53 12/05 0305 Temp 97.8 12/05 0305 Pulse 71 12/05 0305 Resp 16 12/05 0305 Alert responsive does not appear toxic lungs are clear heart exam S1-S2 abdomen soft nontender. Right foot postop dressings are in placeLaboratory Tests 12/05 12/05 12/05 12/04 12/04 0614 0614 0537 2263 2273 Chemistry Sodium (136 - 145 MMOL/L) 138 Potassium (3.5 - 5.1 MMOL/L) 3.9 Chloride (98 - 107 MMOL/L) 105 Carbon Dioxide (21 - 32 MMOL/L) 26.0 Anion Gap (5 - 16 MMOL/L) 7 BUN (7 - 26 MG/DL) 21 Creatinine (0.510 - 0.950 MG/DL) 0.45 L Est GFR ( Amer) Greater than 60 Est GFR (Non-Af Amer) Greater than 60 BUN/Creatinine Ratio (15 - 24) 47 H Glucose (70 - 100 MG/DL) 244 H Whole Bld Glucose (85 - 125 MG/DL) 225 H 274 H 222 H Hemoglobin A1c (4.3 - 6.0 %) 12.2 H Total Calcium (8.5 - 10.5 MG/DL) 8.8 Iron (50 - 170 UG/DL) 88 TIBC (221 - 481 UG/DL) 351 Iron Saturation (22 - 44 %) 25 Ferritin (8.0 - 307.0 NG/ML) 227.0 Hematology WBC (4.5 - 11.0 K/CUMM) 7.8 RBC (3.90 - 5.30 M/CU MM) 4.07 Hgb (11.5 - 15.5 G/DL) 12.6 Hct (35.0 - 47.0 %) 38.1 MCV (80.0 - 99.0 fl) 93.6 MCHC (32.0 - 36.0 GM/DL) 33.1 RDW (11 - 14.5) 12.1 Plt Count (150 - 450 K/CU MM) 219 MPV (9.4 - 12.4) 9.7 Nucleated RBCs (Less than 1 %) 0.0 12/04 12/04 12/04 1238 1213 1124 Chemistry Sodium (136 - 145 MMOL/L) 136 Potassium (3.5 - 5.1 MMOL/L) 4.4 Chloride (98 - 107 MMOL/L) 105 Carbon Dioxide (21 - 32 MMOL/L) 24.0 Anion Gap (5 - 16 MMOL/L) 7 BUN (7 - 26 MG/DL) 30 H Creatinine (0.510 - 0.950 MG/DL) 0.56 Est GFR ( Amer) Greater than 60 Est GFR (Non-Af Amer) Greater than 60 BUN/Creatinine Ratio (15 - 24) 54 H Glucose (70 - 100 MG/DL) 293 H Whole Bld Glucose (85 - 125 MG/DL) 325 H 347 H Total Calcium (8.5 - 10.5 MG/DL) 9.5 Hematology WBC (4.5 - 11.0 K/CUMM) 10.1 RBC (3.90 - 5.30 M/CU MM) 4.66 Hgb (11.5 - 15.5 G/DL) 14.4 Hct (35.0 - 47.0 %) 42.4 MCV (80.0 - 99.0 fl) 91.0 MCHC (32.0 - 36.0 GM/DL) 34.0 RDW (11 - 14.5) 11.9 Plt Count (150 - 450 K/CU MM) 244 MPV (9.4 - 12.4) 9.7 Nucleated RBCs (Less than 1 %) 0.0 Assessment and Plan Conclusion 1. Open wound of right foot Continue empiric Unasyn for now and closely followed intraoperative culture from yesterday. Continue supportive care. Stay Reason/Anticipated Disch Continuing IV Antibiotics, Awaiting Test Results DC Disposition Plan Continue parenteral antibiotic therapy and follow-up micro data. Disclaimer This dictation was created using voice recognition software. Phonetic and/or minor grammatical errors may exist. eSign Date and Time Addison Paez Verified/Reviewed by 12/05/20 0931 [facility] Progress Note-Physician [facility] PROG.ORTHOon 12-05-2020 PROG.ORTHO [facility] Patient Name: PHYLICIA FALK [address] Date of : [address] [address] Unit Number: [id number] Progress Note-Ortho Patient Status: [facility] Attending Doctor: Jason Blanchard DO Service Date: 12/05/20735 Progress Note - Ortho Subjective S: (2 ROS minimum) Patient was sleeping in bed when I came into her room. She states that she is feeling a little rough this morning. She does have pain in her foot but she is tolerating it. No fevers chills shortness of breath Objective Nursing Vitals Vital Signs (Last) Result Date Time Pulse Ox 96 12/05 304 B/P 134/53 12/05 304 Temp 97.8 12/05 304 Pulse 71 12/05 304 Resp 16 12/05 304 Physical Exam Right lower extremity right foot postop dressing is clean dry and intact without saturation. Dorsiflexion plantarflexion 5/5, distal pulses 2 Homans' sign Diagnostic Data Lab 24hr (CBC/BMP Fishbone) 12/05/20 0614: Hemoglobin A1c Pending 12/05/20 0614: [Embedded Image Not Available] Anion Gap 7, Est GFR ( Amer) Greater than 60, Est GFR (Non-Af Amer) Greater than 60 , BUN/Creatinine Ratio 47 H, Glucose 244 H, Total Calcium 8.8, Iron 88, TIBC 351, Iron Saturation 25, Ferritin 227.0, RBC 4.07, MCV 93.6, MCHC 33.1, RDW 12.1, MPV 9.7, Nucleated RBCs 0.0 12/05/20 0525: Whole Bld Glucose 225 H 12/04/20 2248: Whole Bld Glucose 274 H 12/04/20 1326: Whole Bld Glucose 222 H 12/04/20 1238: [Embedded Image Not Available] Anion Gap 7, Est GFR ( Amer) Greater than 60, Est GFR (Non-Af Amer) Greater than 60 , BUN/Creatinine Ratio 54 H, Glucose 293 H, Total Calcium 9.5, RBC 4.66, MCV 91.0, MCHC 34.0, RDW 11.9, MPV 9.7, Nucleated RBCs 0.0 12/04/20 1213: Whole Bld Glucose 325 H 12/04/20 1124: Whole Bld Glucose 347 H Assessment/Plan Conclusion 1. Right foot ulcer Patient is postop day 1 following IandD of fifth metatarsal wound. Antibiotics per infectious disease Still awaiting final cultures. Will not discharge patient until approved by infectious disease DVT prophylaxis with SCDs and Lovenox and compression stockings on opposite leg Diabetic diet Weightbearing as tolerated with assistance in postop shoe We will discuss with Dr. Blanchard 2. Osteomyelitis of foot, right, acute 3. Diabetes 4. Hyperlipidemia 5. Asthma 6. Hypothyroidism 7. Open wound of right foot Stable Problems Problems not specifically addressed in the above plan are stable and do not warrant adjustment of the current method of therapy. Collaborating Physician Jason Blanchard DO Physician Attestation Statement of Attestation I confirm that I have evaluated the patient, reviewed the history and physical, medications, diagnostic results, physical exam, assessment and plan of care of the patient. Disclaimer This dictation was created using voice recognition software. Phonetic and/or minor grammatical errors may exist. eSign Date and Time JenniferNora J PAC Verified/Reviewed by 12/05/2039 Jason Blanchard DO Normal [facility] Progress Note-Ortho Normal [facility] BMP 12-04-2020 Anion gap [Moles/Vol] 7 mmol/L Normal 5-16 [facility] Comment on above: Order Comment: Campu s: M Performed By: #### L 500.84543, L500.18947 #### [facility] [address] [place] [address] Calcium [Mass/Vol] 9.5 mg/dL Normal 8.5-10.5 [facility] Comment on above: Order Comment: Campu s: M Result Comment: NOTE NEW NORMAL RANGE DUE TO REAGENT CHANGE Performed By: #### L 500.13699, L500.03992 #### [facility] [address] [place] [address] 41842 Chloride [Moles/Vol] 105 mmol/L Normal 98-107 [facility] Comment on above: Order Comment: Campu s: M Performed By: #### L 500.65557, L500.85614 #### [facility] [place] [address] CO2 [Moles/Vol] 24.0 mmol/L Normal 21-32 [facility] Comment on above: Order Comment: Campu s: M Performed By: #### L 500.91175, L500.34119 #### [facility] [place] [address] Creatinine [Mass/Vol] 0.56 mg/dL Normal 0.510-0.95 0 [facility] Comment on above: Order Comment: Campu s: M Result Comment: Palak ents receiving either N-Acetylcysteine (NAC) or Metamizole prior to venipuncture, may have falsely depressed results. Performed By: #### L 500.29013, L500.92449 #### [facility] [address] [place] [address] Glucose [Mass/Vol] 293 mg/dL High 70-100 [facility] Comment on above: Order Comment: Campu s: M Result Comment: 70-1 00- Normal Fasting; 100-125 Impaired Fasting; greater than 126 on more than one result- Diabetes. ADA guidelines. Results may be falsely elevated after the administration of Sulfapyridine. Results may be falsely depressed after the administration of Sulfasalazine. Performed By: #### L 500.58713, L5.09245 #### [facility] [address] [place] [address] Potassium [Moles/Vol] 4.4 mmol/L Normal 3.5-5.1 [facility] Comment on above: Order Comment: Campu s: M Performed By: #### L 500.62784, L5.49301 #### [facility] [address] [place] [address] Sodium [Moles/Vol] 136 mmol/L Normal 136-145 [facility] Comment on above: Order Comment: Campu s: M Performed By: #### L 500.06917, L500.37020 #### [facility] [address] [place] [address] 49890 Urea nitrogen [Mass/Vol] 30 mg/dL High 7-26 [facility] Comment on above: Order Comment: Campu s: M Performed By: #### L 500.08130, L500.71938 #### [facility] [address] [place], [place] [id number] Urea nitrogen/Creatinin e [Mass ratio] 54 mg/mg High 15-24 [facility] Comment on above: Order Comment: Campu s: M Performed By: #### L 500.85692, L500.25665 #### [facility] [address] [place] [address] CBCon 12-04-2020 Erythrocyte distribution width (RBC) [Ratio] 11.9 % Normal 11-14.5 [facility] Comment on above: Order Comment: Campu s: M Performed By: #### L 200.10492 #### [facility] [address] [place] [address] Hematocrit (Bld) [Volume fraction] 42.4 % Normal 35.0-47.0 [facility] Comment on above: Order Comment: Campu s: M Performed By: #### L 200.64402 #### [facility] [address] [place] [address] Hemoglobin (Bld) [Mass/Vol] 14.4 g/dL Normal 11.5-15.5 [facility] Comment on above: Order Comment: Campu s: M Performed By: #### L 200.83609 #### [facility] [address] [place] [address] MCHC (RBC) [Mass/Vol] 34.0 g/dL Normal 32.0-36.0 [facility] Comment on above: Order Comment: Campu s: M Performed By: #### L 200.61763 #### [facility] [address] [place] [address] MCV (RBC) [Entitic vol] 91.0 fL Normal 80.0-99.0 [facility] Comment on above: Order Comment: Campu s: M Performed By: #### L 200.03683 #### [facility] [address] [place] [address] Nucleated RBC/100 WBC (Bld) [Ratio] 0.0 % Normal Less than 1 [facility] Comment on above: Order Comment: Campu s: M Performed By: #### L 200.45664 #### [facility] [address] [place] [address]17 Platelet mean volume (Bld) [Entitic vol] 9.7 fL Normal 9.4-12.4 [facility] Comment on above: Order Comment: Campu s: M Performed By: #### L 200.76052 #### [facility] [address] [place] [address] PLT 244 K/CU MM Normal 150-450 [facility] Comment on above: Order Comment: Campu s: M Performed By: #### L 200.70187 #### [facility] [address] [place] [address] RBC 4.66 M/CU MM Normal 3.90-5.30 [facility] Comment on above: Order Comment: Campu s: M Performed By: #### L 200.71260 #### [facility] [address] [place] [address] WBC 10.1 K/CUMM Normal 4.5-11.0 [facility] Comment on above: Order Comment: Campu s: M Performed By: #### L 200.58455 #### [facility] [address] [place], [place] [address] GFR ESTon 12-04-2020 IF AMER Greater than 60 Normal [facility] Comment on above: Order Comment: Campu s: M Performed By: #### L 500.31880, L500.00309 #### [facility] [address] [place] [address] 75346 IF non-AFR AMER Greater than 60 Normal [facility] Comment on above: Order Comment: Campu s: M Performed By: #### L 500.50940, L500.57410 #### [facility] [address] [facility] [place] [address] GLUCOSE METERon 12-04-2020 Glucose [Mass/Vol] 222 mg/dL High 85-125 [facility] Glucose [Mass/Vol] 325 mg/dL High 85-125 [facility] Glucose [Mass/Vol] 347 mg/dL High 85-125 [facility] HP.IMS.CON 12-04-2020 CONSULTATION-H&P Normal [facility] HP.IMS.[facility] Patient Name: PHYLICIA FALK [address] [facility] Date of : [address] [place], [place] [address] Unit Number: [id number] CONSULTATION-HandP Patient Status: REG SDC Attending Doctor: Jason Blanchard DO Service Date: 12/04/20 3173 History of Present Illness Referring Physician Floyd Chung DPHome Consulted Provider Porsha Swenson DO Reason for Consult MED MGT History of Present Illness This is a pleasant OF Dr. Trujillo, who presented for IandD of her right foot after she suffered a foot crushing injury when she stepped in a hole back in October. Patient has been followed by Dr. CHUNG for this. States was placed on antibiotics when the side of her right foot developed an ulcer with drainage noted. She was placed on Bactrim with no improvement therefore she presented for an IandD today. She will also be followed by infectious disease. We have been asked to see for medical management. Patient seen in postop following her surgery. She denies any nausea, shortness of breath or chest pain. States she has had multiple back surgeries and has no feeling of her feet from the knees down due to this. She admits she was mowing the lawn when she stepped in a hole and did not realize the extent of her injuries till later. Denies any fever, chills or cough. History includes diabetes but it is diet controlled however her blood sugars were in the 300s today. Also has hypothyroidism, hyperlipidemia diet-controlled, asthma related to allergies. Past Medical/Surgical Hx Past Medical History Diabetes, hyperlipidemia both diet controlled, hypothyroidism, asthma allergy related, chronic back issues Past Surgical History She has had over 4 back surgeries, deviated septum repair, tonsils and adenoids as well as uvula. Cholecystectomy. 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, right knee surgery Family/Social History Family Hx Other/Comment Mother was recently diagnosed with breast cancer, father had diabetes and strokes as well as seizures Social Hx She is a remote smoker, rarely drinks and denies any illicit drug use Advance Directives Advance Directives Full Code Allergies/Home Medications Allergies Coded Allergies: CLINDAMYCIN (Severe, SEVERE HIVES 08/19/10) LATEX (Severe, SEVERE RASH 08/19/10) PREGABALIN (From LYRICA) (Mild, FACIAL SWELLING 08/19/10) Home Medications Baclofen* (Lioresal 10MG Tab*) 10 MG TABLET 10 MG PO QPM, Ref 0 (Reported) Entered as Reported by BHARATH KEEN on 12/03/20 0955 Last Action: Continued on 12/04/201546 by JAYA KENNY Cholecalciferol (Vitamin D3) (Vitamin D3) 125 MCG CAPSULE 125 MCG PO QPM, Ref 0 ( Reported) Entered as Reported by BHARATH KEEN on 12/03/20 0956 Last Action: Held on 12/04/201546 by JAYA KENNY Levocetirizine Dihydrochloride 5 MG TABLET 5 MG PO QDAY, Ref 0 (Reported) Entered as Reported by BHARATH KEEN on 12/03/20 0954 Last Action: Held on 12/04/20 154 by JAYA KENNY Levothyroxine Sodium* (Synthroid 0.137MG Tab*) 137 MCG TABLET 0.137 MG PO QDAYAC, Ref 0 (Reported) Entered as Reported by BHARATH KEEN on 12/03/20 0953 Last Action: Continued on 12/04/20 154 by JAYA KENNY Liothyronine Sodium* (Cytomel 25MCG Tab*) 25 MCG TABLET 25 MCG PO QDAY, Ref 0 (Reported ) Entered as Reported by BHARATH KEEN on 12/03/20 0954 Last Action: Continued on 12/04/20 154 by JAYA KENNY Montelukast Sodium (Singulair) 10 MG TABLET 10 MG PO QPM, Ref 0 (Reported) Entered as Reported by BHARATH KEEN on 12/03/20 0955 Last Action: Continued on 12/04/201546 by JAYA KENNY Multivitamin* (Multiple Vitamins Daily Tab*) 1 EACH TABLET 1 UDTAB PO QDAY, Ref 0 ( Reported) Entered as Reported by BHARATH KEEN on 12/03/20 0957 Last Action: Continued on 12/04/201546 by JAYA KENNY Sulfamethoxazole/Trimethoprim* (Bactrim Ds Tab*) 1 EACH TABLET 1 UDTAB PO QDAY, Ref 0 ( Reported) Entered as Reported by BHARATH KEEN on 12/03/20 0954 Last Action: Held on 12/04/201546 by JAYA KENNY Review of Systems ROS: Other Constitutional - Denies any fever, chills, fatigue. Eyes - Denies any blurred vision, double vision. HEENT -Denies any difficulty hearing, difficulty swallowing, headaches, or sore throat. Cardiovascular - Denies any chest pain, chest pressure, palpitations or dizziness. Respiratory - Denies any cough, hemoptysis, shortness of breath. Gastrointestinal - Denies any abdominal pain, diarrhea, nausea, or vomiting. Genitourinary - Denies any dysuria, hematuria. Skin -Denies any jaundice, rash. Neurologic - Denies any blurred vision, double vision, slurred speech, headaches, has chronic numbness from her knees down due to her multiple back surgeries Psychiatric - Denies any anxiety, depression. Physical Exam Vital Signs Vitals in PACU: 80 heart rate (more content not included)... Normal [facility] CONSULTATION-H&P [facility] HP.IMS.[facility] Patient Name: PHYLICIA FALK [address] Date of : [address] [place] [address] Unit Number: [id number] CONSULTATION-HandP Patient Status: REG [facility] Attending Doctor: Jason Blanchard DO Service Date: 12/04/20 154 History of Present Illness Referring Physician Jason Blanchard DO Consulted Provider Addison Paez MD Source of Information Patient Reason for Consult Right foot diabetic infection status post trauma Living Situation Home - Independent History of Present Illness This is a 55-year-old white female history txz-asrsnsx-noksrbcja diabetes mellitus who had localized trauma to the right foot 1 month ago when she fell in a hole as she was working on her lawn. Her right foot fell inside a hole because localized trauma. Roughly 10 days ago patient developed swelling and drainage from the right foot. No fevers or chills no significant constitutional symptoms. Patient was seen late last week and was prescribed Bactrim as an outpatient. Patient was taken to the operating room this afternoon for surgical IandD of the right foot. Operative note reviewed. Patient overall clinically stable and currently in the PACU. Denies any fevers or chills at home. No cardiopulmonary distress nor any gastrointestinal symptoms. Past Medical/Surgical Hx Past Medical History Jzy-sxchfkr-yfdslemlh diabetes mellitus. Multiple orthopedic surgeries in the past Allergies/Home Medications Allergies Coded Allergies: CLINDAMYCIN (Severe, SEVERE HIVES 08/19/10) LATEX (Severe, SEVERE RASH 08/19/10) PREGABALIN (From LYRICA) (Mild, FACIAL SWELLING 08/19/10) Home Medications Baclofen* (Lioresal 10MG Tab*) 10 MG TABLET 10 MG PO QPM, Ref 0 (Reported) Entered as Reported by BHARATH KEEN on 12/03/2055 Last Action: Reviewed on 12/04/201138 by NICHOLE HARRISON Cholecalciferol (Vitamin D3) (Vitamin D3) 125 MCG CAPSULE 125 MCG PO QPM, Ref 0 ( Reported) Entered as Reported by BHARATH KEEN on 12/03/20 0956 Last Action: Reviewed on 12/04/201138 by NICHOLE HARRISON Levocetirizine Dihydrochloride 5 MG TABLET 5 MG PO QDAY, Ref 0 (Reported) Entered as Reported by BHARATH KEEN on 12/03/20 0954 Last Action: Reviewed on 12/04/201138 by NICHOLE HARRISON Levothyroxine Sodium* (Synthroid 0.137MG Tab*) 137 MCG TABLET 0.137 MG PO QDAYAC, Ref 0 (Reported) Entered as Reported by BHARATH KEEN on 12/03/20 0953 Last Action: Reviewed on 12/04/201138 by NICHOLE HARRISON Liothyronine Sodium* (Cytomel 25MCG Tab*) 25 MCG TABLET 25 MCG PO QDAY, Ref 0 (Reported ) Entered as Reported by BHARATH KEEN on 12/03/2054 Last Action: Reviewed on 12/04/201138 by NICHOLE HARRISON Montelukast Sodium (Singulair) 10 MG TABLET 10 MG PO QPM, Ref 0 (Reported) Entered as Reported by BHARATH KEEN on 12/03/20 0955 Last Action: Reviewed on 12/04/201138 by NICHOLE HARRISON Multivitamin* (Multiple Vitamins Daily Tab*) 1 EACH TABLET 1 UDTAB PO QDAY, Ref 0 ( Reported) Entered as Reported by BHARATH KEEN on 12/03/20 0957 Last Action: Reviewed on 12/04/201138 by NICHOLE HARRISON Sulfamethoxazole/Trimethoprim* (Bactrim Ds Tab*) 1 EACH TABLET 1 UDTAB PO QDAY, Ref 0 ( Reported) Entered as Reported by BHARATH KEEN on 12/03/20953 Last Action: Reviewed on 12/04/201138 by NICHOLE HARRISON Review of Systems ROS: Other Noncontributory Physical Exam Vital Signs Alert and responsive does not appear toxic lungs are clear heart exam S1-S2 abdomen soft nontender right foot dressings are in place, postop.Laboratory Tests 12/04 12/04 12/04 12/04 1326 1238 1213 1124 Chemistry Sodium (136 - 145 MMOL/L) 136 Potassium (3.5 - 5.1 MMOL/L) 4.4 Chloride (98 - 107 MMOL/L) 105 Carbon Dioxide (21 - 32 MMOL/L) 24.0 Anion Gap (5 - 16 MMOL/L) 7 BUN (7 - 26 MG/DL) 30 H Creatinine (0.510 - 0.950 MG/DL) 0.56 Est GFR ( Amer) Greater than 60 Est GFR (Non-Af Amer) Greater than 60 BUN/Creatinine Ratio (15 - 24) 54 H Glucose (70 - 100 MG/DL) 293 H Whole Bld Glucose (85 - 125 MG/DL) 222 H 325 H 347 H Total Calcium (8.5 - 10.5 MG/DL) 9.5 Hematology WBC (4.5 - 11.0 K/CUMM) 10.1 RBC (3.90 - 5.30 M/CU MM) 4.66 Hgb (11.5 - 15.5 G/DL) 14.4 Hct (35.0 - 47.0 %) 42.4 MCV (80.0 - 99.0 fl) 91.0 MCHC (32.0 - 36.0 GM/DL) 34.0 RDW (11 - 14.5) 11.9 Plt Count (150 - 450 K/CU MM) 244 MPV (9.4 - 12.4) 9.7 Nucleated RBCs (Less than 1 %) 0.0 Conclusion / Plan Conclusion 1. Open wound of right foot Stable Problems Will empirically treat with Unasyn 3 g IV every 6 hours and closely follow the intraoperative cultures and postoperative course. Disclaimer This dictation was created using voice recognition software. Phonetic and/or minor grammatical errors may exist. eSign Date and Time Addison Paez Verified/Reviewed by 12/04/20 1546 [facility] REPORT [facility] [place] DATE OF SERVICE: TIME OF SURGERY: 1:30 p.m. PREOPERATIVE DIAGNOSIS: At least stage II ulcer, fifth metatarsal head, right foot. POSTOPERATIVE DIAGNOSIS: At least stage II ulcer, fifth metatarsal head, right foot, with bone involvement. OPERATION: Incision, debridement, and application of wound dressing. The size of the opening is 2 cm x 2 cm, that involves soft tissue, tendon, and bone. SURGEON: Jason Blanchard DO PROCEDURE: The patient was brought down to the OR, placed in supine position. All bony prominences were well padded. After induction of general anesthesia, the right foot was sterilely prepped and draped in usual orthopedic fashion. A 15-blade was utilized to remove the callus and delaminated tissue. This revealed full-thickness ulceration down to and including tendon and bone. Necrotic tendon was removed. We then did a rongeur to remove some of the bone. We did take cultures before we removed any of the necrotic tendon for microbiology; both aerobic and [facility] PATIENT NAME: PHYLICIA FALK Dr. Schmid MEDICAL REC #: [id number] [place] [address] ADMIT DATE: DISCHARGE DATE: 12/06/20 OPERATIVE REPORT ATTENDING PHY: Jason Blanchard DO anaerobic were performed. We then gave the antibiotic, Ancef. She will be placed on Ancef and Bactrim until infectious disease does their consult. My fear is that she has developed contamination with osteomyelitis of the fifth metatarsal head, so we resected some of the head and, once we irrigated with K and K solution, did a wet-to-dry dressing. She was brought up out of anesthesia and transferred to the recovery in a stable condition. Jason Blanchard DO [id number] SSI File#: [id number] END OF DOCUMENT / CHANGE LOG FOLLOWS Last Edited By Elec. Signed By Jason Blanchard DO #LYKMI Jason Blanchard DO #LYKMI on 01/01/2021 09:47 ET on 01/01/2021 09:47 ET Revision Number - 2 [facility] PATIENT NAME: PHYLICIA FALK Dr. Schmid MEDICAL REC #: [id number] [place] [address] ADMIT DATE: DISCHARGE DATE: 12/06/20 OPERATIVE REPORT ATTENDING PHY: Jason Blanchard DO Verified/Reviewed by 01/01/21 0947 DEE [facility] PATIENT NAME: PHYLICIA FALK [address] [facility] [address] Schmid MEDICAL REC #: [id number] [place] [address] ADMIT DATE: DISCHARGE DATE: 12/06/20 OPERATIVE REPORT ATTENDING PHY: Jason Blanchard DO Normal [facility] Vital Signs Date Time Vital Sign Value Performing Clinician Justini carlos alberto 04-13-2023 08:06-0500 Diastolic blood pressure 72 mm[Hg] Yris Kelley POTATO PANCAKE FRIER.PRELOAD SUPERVISOR Work Phone: [facility] 04-13-2023 08:06-0500 Heart rate 98 /min Yris Kelley POTATO PANCAKE FRIER.PRELOAD SUPERVISOR Work Phone: [facility] 04-13-2023 08:06-0500 Respiratory rate 16 /min Yris Kelley POTATO PANCAKE FRIER.PRELOAD SUPERVISOR Work Phone: [facility] 04-13-2023 08:06-0500 SaO2% (BldA) [Mass fraction] 96 % Yris Kelley POTATO PANCAKE FRIER.PRELOAD SUPERVISOR Work Phone: [facility] 04-13-2023 08:06-0500 Systolic blood pressure 104 mm[Hg] Yris Kelley POTATO PANCAKE FRIER.PRELOAD SUPERVISOR Work Phone: [facility] 01-02-2023 15:19-0400 Body temperature 97.59 [degF] Nichole Matos POTATO PANCAKE FRIER.PRELOAD SUPERVISOR Work Phone: [facility] 01-02-2023 15:19-0400 Body weight 95.25 kg Nichole Matos POTATO PANCAKE FRIER.PRELOAD SUPERVISOR Work Phone: [facility] 01-02-2023 15:19-0400 Diastolic blood pressure 72 mm[Hg] Nichole Matos POTATO PANCAKE FRIER.PRELOAD SUPERVISOR Work Phone: [facility] 01-02-2023 15:19-0400 Heart rate 110 /min Nichole Matos POTATO PANCAKE FRIER.PRELOAD SUPERVISOR Work Phone: [facility] 01-02-2023 15:19-0400 Respiratory rate 16 /min Nichole Matos POTATO PANCAKE FRIER.PRELOAD SUPERVISOR Work Phone: [facility] 01-02-2023 15:19-0400 SaO2% (BldA) [Mass fraction] 97 % Nichole Matos POTATO PANCAKE FRIER.PRELOAD SUPERVISOR Work Phone: [facility] 01-02-2023 15:19-0400 Systolic blood pressure 120 mm[Hg] Nichole Matos POTATO PANCAKE FRIER.PRELOAD SUPERVISOR Work Phone: [facility] 06-17-2022 13:13-0500 Body height 172.7 cm Estefanía Schmidt POTATO PANCAKE FRIER.PRELOAD SUPERVISOR Work Phone: [facility] 06-17-2022 13:13-0500 Body weight 78.93 kg Estefanía Schmidt APRN.PRELOAD SUPERVISOR Work Phone: [facility] 06-17-2022 13:13-0500 Diastolic blood pressure 70 mm[Hg] Estefanía Schmidt POTATO PANCAKE FRIER.PRELOAD SUPERVISOR Work Phone: [facility] 06-17-2022 13:13-0500 Systolic blood pressure 114 mm[Hg] Estefanía Schmidt POTATO PANCAKE FRIER.PRELOAD SUPERVISOR Work Phone: [facility] 12-02-2021 16:01-0400 Body temperature 98.1 [degF] Cuong Trujillo MD Work Phone: [facility] 12-02-2021 16:01-0400 Body weight 76.2 kg Cuong Trujillo MD Work Phone: [facility] 12-02-2021 16:01-0400 Diastolic blood pressure 68 mm[Hg] Cuong Trujillo MD Work Phone: [facility] 12-02-2021 16:01-0400 Heart rate 108 /min Cuong Trujillo MD Work Phone: [facility] 12-02-2021 16:01-0400 Respiratory rate 16 /min Cuong Trujillo MD Work Phone: [facility] 12-02-2021 16:01-0400 SaO2% (BldA) [Mass fraction] 98 % Cuong Trujillo MD Work Phone: [facility] 12-02-2021 16:01-0400 Systolic blood pressure 116 mm[Hg] Cuong Trujillo MD Work Phone: [facility] 10-08-2021 11:00-0400 Body weight 77.56 kg Cuong Trujillo MD Work Phone: [facility] 10-08-2021 11:00-0400 Diastolic blood pressure 58 mm[Hg] Cuong Trujillo MD Work Phone: [facility] 10-08-2021 11:00-0400 Heart rate 88 /min Cuong Trujillo MD Work Phone: [facility] 10-08-2021 11:00-0400 Systolic blood pressure 92 mm[Hg] Cuong Trujillo MD Work Phone: [facility] Encounters Encounter Date Encounter Type Care Provider Facility Start: 02-02-2024 End: 02-02-2024 ambulatory Clarissa Sheehan MA [facility] Start: 02-02-2024 End: 02-02-2024 Patient encounter procedure Clarissa Sheehan MA [facility] [place] Comment on above: Population Health Na [facility] Start: 02-01-2024 End: 02-01-2024 ambulatory CUONG TRUJILLO Facility:[facility] Start: 01-26-2024 End: 01-26-2024 Chart abstracting Cuong Trujillo MD Work Phone: [facility] [place] Start: 01-09-2024 End: 01-10-2024 Refill Cuong Trujillo MD Work Phone: [facility] [place] Comment on above: Refill Request Start: 12-29-2023 Refill Cuong Trujillo MD Work Phone: Family [facility] [place] Comment on above: Refill Request Start: 11-16-2023 ambulatory Clarissa A Rogerio Normanleida [facility] [place] Start: 11-16-2023 Patient encounter procedure [facility] on above: [facility] Health Na vigation Outreach ([facility]) Start: 11-01-2023 Telephone encounter Yris ogden APRN.PRELOAD SUPERVISOR Work Phone: [facility] Comment on above: Results Start: 10-28-2023 End: 10-28-2023 ambulatory [facility] Facility:[facility] Start: 10-19-2023 Refill Cuong Trujillo MD Work Phone: [facility] Comment on above: Refill Request Start: 07-15-2023 Refill Cuong Trujillo MD Work Phone: [facility] Comment on above: Refill Request Start: 05-05-2023 ambulatory Cuong Trujillo MD Work Phone: [facility] [place] Comment on above: [place] Start: 04-24-2023 Refill Cuong Trujillo MD Work Phone: [facility] Comment on above: Refill Request Start: 04-21-2023 Documentation procedure Mammog yousif Coordinator [facility] Start: 04-21-2023 Letter encounter Mammography Coordinator [facility] Start: 04-21-2023 End: 04-21-2023 ambulatory ESTEFANÍA SCHMIDT Facility:[facility] Start: 04-13-2023 End: 04-13-2023 ambulatory [facility] Facility:[facility] Start: 04-13-2023 End: 04-13-2023 Office outpatient visit 25 minutes Yris Kelley APRN.PRELOAD SUPERVISOR Work Phone: [facility] [place] Comment on above: Type 2 diabetes rickie itus with complication, without long-term current use of insulin (HCC) (Primary Dx); Narcolepsy due to underlying condition without cataplexy; Medication management; Bilateral carotid artery stenosis; Hypothyroidism, unspecified type; Hyperlipidemia, mixed; Encounter for immunization; Chronic ulcer of right foot due to diabetes mellitus (HCC) Start: 04-02-2023 End: 04-02-2023 ambulatory CUONG TRUJILLO Facility:[facility] Start: 03-29-2023 Refill Cuong Trujillo MD Work Phone: [facility] [place] Comment on above: Refill Request Start: 03-02-2023 Telephone encounter Cuong Trujillo MD Work Phone: [facility] [place] Comment on above: Insurance Authorizat ion (Nuvigil ) Start: 02-11-2023 Telephone encounter Cuong Trujillo MD Work Phone: [facility] [place] Comment on above: Insurance Authorizat ion (Janumet ) Start: 01-02-2023 End: 01-02-2023 Patient encounter procedure Nichole Matos APRN.PRELOAD SUPERVISOR Work Phone: [facility] Comment on above: Dysuria (Primary Dx) Start: 12-20-2022 Refill Cuong Trujillo MD Work Phone: [facility] Comment on above: Refill Request Start: 09-25-2022 Telephone encounter Cuong Trujillo MD Work Phone: [facility] [place] Comment on above: Pre-Op Exam Start: 09-13-2022 Refill Cuong Trujillo MD Work Phone: [facility] Comment on above: Refill Request Start: 07-28-2022 Refill Cuong Trujillo MD Work Phone: [facility] Comment on above: Opened In Error Start: 07-26-2022 Refill Marylou Sy on PA-C Work Phone: [facility] Comment on above: Refill Request Start: 07-20-2022 Refill Cuong Trujillo MD Work Phone: [facility] [place] Comment on above: Refill Request Start: 07-08-2022 Telephone encounter Home Bustos PA-C Work Phone: [facility] [place] Comment on above: Results Start: 06-17-2022 End: 06-17-2022 Patient encounter procedure Estefanía Schmidt APRN.PRELOAD SUPERVISOR Work Phone: OB/Gynecology Comment on above: Encounter for gyneco logical examination (general) (routine) without abnormal findings (Primary Dx); Encounter for screening for human papillomavirus (HPV); Pap smear for cervical cancer screening; Encounter for screening mammogram for breast cancer Start: 06-17-2022 End: 06-17-2022 Patient encounter status Estefanía Schmidt APRN.PRELOAD SUPERVISOR Work Phone: OB/Gynecology Start: 06-08-2022 Telephone encounter Cuong Trujillo MD Work Phone: [facility] Comment on above: Appointment Start: 04-03-2022 Telephone encounter Cuong Trujillo MD Work Phone: [facility] [place] Comment on above: Forms Start: 03-26-2022 Telephone encounter Cuong Trujillo MD Work Phone: [facility] [place] Comment on above: Results Start: 03-25-2022 Telephone encounter Cuong Trujillo MD Work Phone: [facility] [place] Comment on above: Orders Start: 03-08-2022 Refill Cuong Trujillo MD Work Phone: [facility] [place] Comment on above: Refill Request Start: 02-17-2022 Telephone encounter Yris ogden APRN.PRELOAD SUPERVISOR Work Phone: [facility] Comment on above: Results Start: 02-04-2022 ambulatory Cuong Trujillo MD Work Phone: [facility] Comment on above: Dr Jim Falk, ENT Start: 01-27-2022 Telephone encounter Cuong Trujillo MD Work Phone: [facility] Comment on above: Orders ([facility]) Start: 01-25-2022 Refill Cuong Trujillo MD Work Phone: [facility] [place] Comment on above: Refill Request Start: 01-10-2022 Telephone encounter Cuong Trujillo MD Work Phone: [facility] [place] Comment on above: Results Start: 12-12-2021 End: 12-12-2021 Subsequent hospital visit by physician [facility] (I-Stat) Work Phone: Cat Scan Comment on above: Scalp mass [R22.0] Start: 12-02-2021 End: 12-02-2021 Patient encounter procedure Cuong Trujillo MD Work Phone: [facility] Comment on above: Sepsis due to methic illin susceptible Staphylococcus aureus, unspecified whether acute organ dysfunction present (HCC) (Primary Dx); Cellulitis, unspecified cellulitis site; Type 2 diabetes mellitus with complication, without long-term current use of insulin (HCC); Hypothyroidism, unspecified type; Scalp mass; Thunderclap headache Start: 11-28-2021 Telephone encounter Cuong Trujillo MD Work Phone: [facility] [place] Comment on above: Nursing Plan of Care ; Patient Update regarding BP Patient Request Start: 11-13-2021 Documentation procedure [facility]og yousif [facility] Start: 11-13-2021 Letter encounter Mammography Coordinator [facility] Start: 11-13-2021 End: 11-13-2021 Subsequent hospital visit by physician Screen Mammo [facility] Comment on above: Encounter for screen ing mammogram for breast cancer [Z12.31] Start: 11-12-2021 ambulatory Cuong Trujillo MD Work Phone: Internal [facility] [place] Start: 10-23-2021 Telephone encounter Cuong Trujillo MD Work Phone: [facility] [place] Comment on above: Prior authorization to be done (test strips/lancets) Start: 10-22-2021 ambulatory Cuong Trujillo MD Work Phone: [facility] [place] Comment on above: Prescription preauth Start: 10-11-2021 ambulatory Cuong Trujillo MD Work Phone: [facility] [place] Comment on above: New meter not compat ible Start: 10-10-2021 ambulatory Cuong Trujillo MD Work Phone: [facility] Comment on above: Sugar meter Start: 10-09-2021 Telephone encounter Cuong Trujillo MD Work Phone: [facility] Comment on above: Results Start: 10-08-2021 End: 10-08-2021 Patient encounter procedure Cuong Trujillo MD Work Phone: [facility] Comment on above: Anemia, unspecified type (Primary Dx); Narcolepsy due to underlying condition without cataplexy; Type 2 diabetes mellitus with complication, without long-term current use of insulin (HCC); Hypothyroidism, unspecified type; Complex regional pain syndrome type 1 of lower extremity, unspecified laterality; Open wound of ankle and foot; Tenosynovitis Start: 09-22-2021 Telephone encounter Cuong Trujillo MD Work Phone: [facility] Comment on above: Test strips RX Start: 06-24-2021 End: 07-17-2021 ambulatory MIKO GUZMAN [facility] Procedures Date Procedure Procedure Detail Performing Clinician Start: 01-20-2024 Hemoglobin A1c/Hemoglobin.total in Blood [facility] Provider Start: 04-13-2023 Drug tst prsmv instr mnt chem analyzers pr date Yris Kelley POTATO PANCAKE FRIER.PRELOAD SUPERVISOR Work Phone: Start: 04-13-2023 INFLUENZA VACCINE, A GE 6 MO - 64 YR, QUADRIVALENT (AFLURIA, FLULAVAL, FLUZONE) Yris Kelley POTATO PANCAKE FRIER.PRELOAD SUPERVISOR Work Phone: Start: 01-02-2023 Urnls dip stick/tabl et rgnt auto w/o microscopy Nichole Matos POTATO PANCAKE FRIER.PRELOAD SUPERVISOR Work Phone: Start: 12-12-2021 Ct head/brain w/o co ntrast material Cuong Trujillo MD Work Phone: Start: 11-13-2021 End: 11-13-2021 Screening mammography bi 2-view breast inc cad Bulk Order Provider Start: 12-30-2020 Ecg routine ecg w/le ast 12 lds i&r only Start: 11-01-2020 Adult depression scr eening assessment Cuong Trujillo MD Work Phone: Start: 10-07-2020 Mammography Cuong Reynolds MD Work Phone: Plan of Treatment Date Care Activity Detail Author Start: 08-13-2027 Urine microalbumin profile [facility] Start: 06-17-2027 PAP TESTING PAP TESTING [facility] Start: 06-17-2027 Screening for malign ant neoplasm of cervix [facility] Start: 06-28-2025 COLOGUARD (FIT-DNA) COLOGUARD (FIT-D NA) [facility] Start: 06-28-2025 COLORECTAL CANCER SCREENING COLORECTAL CANCER SCREENING [facility] Start: 06-28-2025 Screening for malign ant neoplasm of colon [facility] Start: 04-21-2024 Hemoglobin A1c measurement HbA1C [facility] Start: 04-21-2024 Mammography Mammogram Screening [facility] Start: 04-21-2024 Screening for malign ant neoplasm of breast Mammogram Screening [facility] Start: 04-13-2024 Annual PCP Team Crew Chief [place] Disease Visit Annual PCP Team Chronic Disease Visit [facility] Start: 04-13-2024 Covid-19 Vaccine ( season) Covid-19 Vaccine () [facility] Comment on above: Postponed from 01/22 (Declined at this time) Start: 04-13-2024 Hepatitis B Vaccine (1 of 3 - 19+ 3-dose series) Hepatitis B Vaccine (1 of 3 - 19+ 3-dose series) [facility] Comment on above: Postponed from 11/26 (Declined at this time) Start: 04-13-2024 Hepatitis B Vaccine (1 of 3 - 3-dose series) Hepatitis B Vaccine (1 of 3 - 3-dose series) [facility] Comment on above: Postponed from 11/26 (Declined at this time) Start: 04-13-2024 Pneumococcal vaccination [facility] Comment on above: Postponed from 11/26 (Declined at this time) Start: 01-28-2024 Hemoglobin A1c measurement HbA1C [facility] Start: 01-23-2024 Covid-19 Vaccine () Covid-19 Vaccine () [facility] Start: 01-23-2024 Influenza vaccination Influenza Vacc ine (#1) [facility] Start: 10-28-2023 End: 10-28-2023 ambulatory 10/28/2023 1:00 PM EDT Results Only [place] Draw Station [address] [place] [address] [facility] Start: 10-08-2023 Hepatitis B screening URINE ALBUMIN:CREATININE RATIO [facility] Start: 10-01-2023 Hemoglobin A1c measurement HbA1C [facility] Start: 10-01-2023 Hemoglobin A1c/Hemoglobin.total in Blood HbA1C [facility] Start: 09-30-2023 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[place] DISEASE VISIT ANNUAL PCP TEAM CHRONIC DISEASE VISIT [facility] Start: 06-13-2023 End: 12-12-2023 Hemoglobin A1c in Blood HGB A1C Lab Routine Type 2 diabetes mellitus with complication, without long-term current use of insulin (HCC) Expected: 06/13/2023, Expires: 12/12/2023 [facility] Work Phone: Comment on above: Expected: 06/13/2023 , Expires: 12/12/2023 Start: 06-13-2023 End: 12-12-2023 Lipid 1996 panel - Serum or Plasma LIPID PANEL BASIC Lab Routine Hyperlipidemia, mixed Expected: 06/13/2023, Expires: 12/12/2023 [facility] Work Phone: Comment on above: Expected: 06/13/2023 , Expires: 12/12/2023 Start: 06-13-2023 End: 12-12-2023 Thyrotropin [Units/volume] in Serum or Plasma TSH BLD Lab Routine Hypothyroidism, unspecified type Expected: 06/13/2023, Expires: 12/12/2023 [facility] Work Phone: Comment on above: Expected: 06/13/2023 , Expires: 12/12/2023 Start: 06-13-2023 End: 12-12-2023 Thyroxine (T4) free [Mass/volume] in Serum or Plasma T4 FREE/FREE THYROX Lab Routine Hypothyroidism, unspecified type Expected: 06/13/2023, Expires: 12/12/2023 [facility] Work Phone: Comment on above: Expected: 06/13/2023 , Expires: 12/12/2023 Start: 06-13-2023 End: 12-12-2023 Triiodothyronine (T3) [Mass/volume] in Serum or Plasma T3 BLD Lab Routine Hypothyroidism, unspecified type Expected: 06/13/2023, Expires: 12/12/2023 [facility] Work Phone: Comment on above: Expected: 06/13/2023 , Expires: 12/12/2023 Start: 06-08-2023 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[place] DISEASE VISIT ANNUAL PCP TEAM CHRONIC DISEASE VISIT [facility] Start: 06-08-2023 HEPATITIS C SCREENING HEPATITIS C [facility] Comment on above: Postponed from 11/26 (Declined at this time) Start: 06-08-2023 Hepatitis C screening Hepatitis C [facility] Comment on above: Postponed from 11/26 (Declined at this time) Start: 06-05-2023 3 comp foot exam completed DIABETIC FOOT EXAM [facility] Start: 06-05-2023 Diabetic foot examination Diabetic F oot Exam [facility] Start: 05-24-2023 Behavioral Health Screening Behavioral Health Screening [facility] Start: 05-24-2023 Depression Assessment Depression Ass essment [facility] Start: 01-22-2023 Covid-19 Vaccine () Covid-19 Vaccine () [facility] Start: 01-22-2023 Influenza vaccination [facility] Start: 01-07-2023 Hemoglobin A1c/Hemoglobin.total in Blood HBA1C [facility] Start: 01-02-2023 End: 03-04-2023 Bacteria identified in Urine by Culture URINE CULTURE Microbiology Routine Dysuria Expected: 01/02/2023, Expires: 03/04/2023 [facility] Work Phone: Comment on above: Expected: 01/02/2023 , Expires: 03/04/2023 Start: 12-02-2022 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[place] DISEASE VISIT ANNUAL PCP TEAM CHRONIC DISEASE VISIT [facility] Start: 11-13-2022 Mammography [facility] Start: 10-08-2022 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[place] DISEASE VISIT ANNUAL PCP TEAM CHRONIC DISEASE VISIT [facility] Start: 10-08-2022 Hepatitis B screening URINE ALBUMIN:CREATININE RATIO [facility] Start: 07-28-2022 Hepatitis B surface antibody level LDL CHOLESTEROL [facility] Start: 07-25-2022 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[place] DISEASE VISIT ANNUAL PCP TEAM CHRONIC DISEASE VISIT [facility] Start: 04-19-2022 End: 06-19-2022 Thyrotropin [Units/volume] in Serum or Plasma TSH BLD Lab Routine Hypothyroidism, unspecified type Expected: 04/19/2022, Expires: 06/19/2022 [facility] Work Phone: Comment on above: Expected: 04/19/2022 , Expires: 06/19/2022 Start: 04-10-2022 Hemoglobin A1c/Hemoglobin.total in Blood HBA1C [facility] Start: 03-25-2022 End: 05-25-2022 Bacteria identified in Urine by Culture URINE CULTURE Microbiology Routine Dark urine Expected: 03/25/2022, Expires: 05/25/2022 [facility] Work Phone: Comment on above: Expected: 03/25/2022 , Expires: 05/25/2022 Start: 03-25-2022 End: 05-25-2022 URINALYSIS, REFLEX MICROSCOPIC URINALYSIS, REFLEX MICROSCOPIC Lab Routine Dark urine Expected: 03/25/2022, Expires: 05/25/2022 [facility] Work Phone: Comment on above: Expected: 03/25/2022 , Expires: 05/25/2022 Start: 02-21-2022 End: 04-23-2022 Thyrotropin [Units/volume] in Serum or Plasma TSH BLD Lab Routine Hypothyroidism, unspecified type Expected: 02/21/2022, Expires: 04/23/2022 [facility] Work Phone: Comment on above: Expected: 02/21/2022 , Expires: 04/23/2022 Start: 01-28-2022 Hemoglobin A1c/Hemoglobin.total in Blood HBA1C [facility] Start: 01-22-2022 Influenza vaccination C [facility] Start: 11-20-2021 End: 01-20-2022 Thyrotropin [Units/volume] in Serum or Plasma TSH BLD Lab Routine Hypothyroidism, unspecified type Expected: 11/20/2021, Expires: 01/20/2022 [facility] Work Phone: Comment on above: Expected: 11/20/2021 , Expires: 01/20/2022 Start: 11-01-2021 Adult depression scr eening assessment DEPRESSION SCREENING [facility] Start: 10-08-2021 End: 12-08-2021 ALBUMIN/CREAT RATIO RND UR [facility] Work Phone: Comment on above: Expected: 10/08/2021 , Expires: 12/08/2021 Start: 10-08-2021 End: 12-08-2021 CBC W Auto Differential panel - Blood [facility] Work Phone: Comment on above: Expected: 10/08/2021 , Expires: 12/08/2021 Start: 10-08-2021 End: 12-08-2021 Folate [Mass/volume] in Serum or Plasma [facility] Work Phone: Comment on above: Expected: 10/08/2021 , Expires: 12/08/2021 Start: 10-08-2021 End: 12-08-2021 Hemoglobin A1c/Hemoglobin.total in Blood [facility] Work Phone: Comment on above: Expected: 10/08/2021 , Expires: 12/08/2021 Start: 10-08-2021 End: 12-08-2021 IRON + TIBC [facility] Work Phone: Comment on above: Expected: 10/08/2021 , Expires: 12/08/2021 Start: 10-08-2021 End: 12-08-2021 VITAMIN B12 BLOOD [facility] Work Phone: Comment on above: Expected: 10/08/2021 , Expires: 12/08/2021 Start: 10-07-2021 Mammography MAMMOGRAM [facility] Start: 09-08-2021 COVID-19 VACCINE (4 - Booster for Moderna series) COVID-19 VACCINE (4 - Booster for Moderna series) [facility] Start: 07-22-2021 3 comp foot exam completed DIABETIC FOOT EXAM [facility] Start: 07-05-2021 COVID-19 VACCINE (4 - Booster for Moderna series) COVID-19 VACCINE (4 - Booster for Moderna series) [facility] Start: 07-05-2021 COVID-19 VACCINE (4 - Moderna series) COVID-19 VACCINE (4 - Moderna series) [facility] Start: 05-24-2021 DEPRESSION ASSESSMENT DEPRESSION ASS ESSMENT [facility] Start: 10-25-2019 Hepatitis B screening URINE ALBUMIN:CREATININE RATIO [facility] Start: 06-14-2019 HPV TESTING HPV TESTING [facility] Start: 06-14-2019 PAP TESTING PAP TESTING [facility] Start: 07-02-2018 COLORECTAL CANCER SCREENING COLORECTAL CANCER SCREENING [facility] Start: 07-02-2018 FECAL OCCULT BLOOD FECAL OCCULT BLOO D [facility] Start: 07-02-2018 Screening for malign ant neoplasm of colon Fecal Occult Blood [facility] Start: 2014 SHINGRIX VACCINE (1 of 2) RUBIO GRIX VACCINE (1 of 2) [facility] Start: 2009 COLOGUARD (FIT-DNA) COLOGUARD (FIT-D NA) [facility] Start: 2009 Colonoscopy COLONOSCOPY [facility] Start: [address] COLONOGRAPHY [facility] Start: 2009 Screening for malign ant neoplasm of colon [facility] Start: 2009 SIGMOIDOSCOPY SIGMOIDOSCOPY [facility] Start: 11-27-1983 HEPATITIS B (1 of 3 - Risk 3-dose series) HEPATITIS B (1 of 3 - Risk 3-dose series) [facility] Start: 11-27-1983 TWO PNEUMOVAX 5 YEAR S APART PRIOR TO AGE 65 (#1) TWO PNEUMOVAX 5 YEARS APART PRIOR TO AGE 65 (#1) [facility] Start: 1982 Anxiety Screening Anxiety Screening [facility] Start: 1982 Depression Screening Depression Scre ening [facility] Start: 1982 HEPATITIS C SCREENING HEPATITIS C [facility] Start: 1982 Hepatitis C screening Hepatitis C [facility] Start: 1982 HIV SCREENING HIV SCREENING [facility] Start: 1974 Glaucoma screening Dilated Retinal E xam [facility] Start: 1974 Hepatitis C antibody , confirmatory test DILATED RETINAL EXAM [facility] Start: 1970 PNEUMOCOCCAL (1 - PCV) PNEUMOCOCCAL (1 - PCV) [facility] Start: 1970 Pneumococcal vaccination Pneum ococcal Vaccine (1 - PCV) [facility] Start: 1964 HEPATITIS B (1 of 3 - 3-dose series) HEPATITIS B (1 of 3 - 3-dose series) [facility] Start: 1964 Hepatitis B Vaccine (1 of 3 - 3-dose series) Hepatitis B Vaccine (1 of 3 - 3-dose series) [facility] End: 01-01-2023 Ct head/brain w/o contrast material CT BRAIN WO IVCON Radiology Routine Scalp mass Thunderclap headache 1 Occurrences starting 12/02/2021 until 01/01/2023 [facility] Work Phone: Comment on above: 1 Occurrences starti ng 12/02/2021 until 01/01/2023 Hemoglobin.gastroint estina l.lower [Presence] in Stool by Immunoassay FECAL OCCULT BLOOD TEST Lab Routine Heme + stool Positive colorectal cancer screening using Cologuard test Ordered: 07/09/2022 [facility] Work Phone: Comment on above: Ordered: 07/09/2022 End: 07-17-2023 BALTAZAR SCREENING BALTAZAR SCREENING Radiology Routine Encounter for screening mammogram for breast cancer 1 Occurrences starting 06/17/2022 until 07/17/2023 [facility] Work Phone: Comment on above: 1 Occurrences starti ng 06/17/2022 until 07/17/2023 PAIN PANEL, UR QUANT PAIN PANEL, UR QUANT Lab Routine Narcolepsy due to underlying condition without cataplexy Medication management 04/13/2023 9:27 AM [facility] Work Phone: PAIN PANEL, UR QUANT PAIN PANEL, UR QUANT Lab Routine Narcolepsy due to underlying condition without cataplexy Medication management 04/13/2023 9:27 AM [facility] Work Phone: PAP FLUID CERVICAL SCREENING PAP FLUID CERVICAL SCREENING Lab Routine Encounter for gynecological examination (general) (routine) without abnormal findings Encounter for screening for human papillomavirus (HPV) Pap smear for cervical cancer screening 06/17/2022 1:48 PM [facility] Work Phone: SPECIMEN VALIDITY, URINE SPECIME N VALIDITY, URINE Lab Routine Narcolepsy due to underlying condition without cataplexy Medication management 04/13/2023 9:27 AM EST [facility] Work Phone: End: 04-13-2024 [facility] CAROTID [facility]ER[facility] CAROTID [facility] Vascular Lab Routine Bilateral carotid artery stenosis 1 Occurrences starting 04/13/2023 until 04/13/2024 [facility] Work Phone: Comment on above: 1 Occurrences starti ng 04/13/2023 until 04/13/2024 [facility] Immunizations Immunization Date Immunization Notes Care Provider Akhil ortega 04-13-2023 influenza, injectabl e, quadrivalent, contains preservative Yris Kelley POTATO PANCAKE FRIEREDINSON Work Phone: [facility] 04-13-2023 influenza virus vaccine, unspecified formulation Cuong Trujillo MD Work Phone: [facility] 08-29-2020 COVID-19 vaccine, fu ll dose (MODERNA) Cuong Trujillo MD Work Phone: [facility] 07-18-2020 COVID-19 vaccine, fu ll dose (MODERNA) Cuong Trujillo MD Work Phone: [facility] 05-06-2018 influenza, injectabl e, quadrivalent, contains preservative Cuong Trujillo MD Work Phone: [facility] 05-06-2018 influenza virus vaccine, unspecified formulation Cuong Trujillo MD Work Phone: [facility] 08-12-2017 tetanus and diphther ia toxoids, adsorbed, preservative free, for adult use (5 Lf of tetanus toxoid and 2 Lf of diphtheria toxoid) Cuong Trujillo MD Work Phone: [facility] 02-24-2017 influenza, seasonal, injectable Cuong Trujillo MD Work Phone: [facility] 03-11-2016 influenza, injectabl e, quadrivalent, contains preservative Cuong Trujillo MD Work Phone: [facility] 03-29-2014 influenza, seasonal, injectable Cuong Trujillo MD Work Phone: [facility] 03-17-2012 influenza virus vaccine, unspecified formulation Cuong Trujillo MD Work Phone: [facility] 03-22-2008 influenza virus vaccine, unspecified formulation Cuong Trujillo MD Work Phone: [facility] 04-12-2007 tetanus toxoid, redu ernesto diphtheria toxoid, and acellular pertussis vaccine, adsorbed Cuong Trujillo MD Work Phone: [facility] Work Phone: Payers Date Payer Category Payer Unknown [employer]ER [employer] / [employer]ATHER [id number] 2022-Present [phone] [address] [address] [place] [address] EPO [id number] 2022 Unknown [id number] 2021 Medicaid [employer] [id number] 2021-Present [phone] [address] [place] [address] Medicaid [id number] 2021 Medicaid [id number] 2019 Unknown [id number] 1965 Unknown [id number] 1 Unknown [id number] Social History Date Type Detail Facility Start: 10-28-2010 End: 06-17-2022 Tobacco smoking status NHIS Ex-smoker [facility] Work Phone: Start: 10-28-1980 End: 10-28-1989 History of tobacco use Current smoker [facility] Work Phone: Start: 10-28-2010 End: 09-29-2022 Cigarettes smoked current (pack per day) - Reported 0.1 [facility] Start: 10-28-2010 End: 06-17-2022 Tobacco use and exposure Smokeless tobacco non-user [facility] Work Phone: Start: 01-13-2021 End: 04-13-2023 Alcohol intake Current drinker of alcohol (finding) [facility] Start: 11-01-2020 History SDOH Alcohol Frequency 98 [facility] Start: 12-16-2012 History SDOH Alcohol Comment 6-10 times a year [facility] Start: 11-01-2020 End: 06-07-2022 History SDOH Physical Activity DPW 3 [facility] Start: 11-01-2020 History SDOH Physica l Activity MPS 9 [facility] Start: 07-22-2021 End: 06-07-2022 History SDOH Housing Unable to Pay 2 [facility] Start: 07-22-2021 End: 06-07-2022 History SDOH Housing Places Lived 1 [facility] Start: 1965 Sex Assigned At Female [facility] Start: 09-28-2021 End: 11-13-2021 Exposure to SARS-CoV-2 (event) Not sure [facility] Start: 10-28-1980 End: 10-28-1989 History of tobacco use Cigarette Smoker [facility] Work Phone: Start: 06-07-2022 History SDOH Social Connections Phone 5 [facility] Start: 06-07-2022 History SDOH Physica l Activity DPW 0 [facility] Start: 06-06-2022 End: 09-29-2022 Social connection and isolation panel [facility] Do you belong to any clubs or organizations such as religion groups, unions, fraternal or athletic groups, or school groups? Yes [facility] Are you now , , , , never or living with a partner? [facility] How often to you hav e a drink containing alcohol? Monthly or less [facility] How many standard dr inks containing alcohol do you have on a typical day? 1 or 2 [facility] How often do you hav e 6 or more drinks on 1 occasion? Never [facility] How hard is it for y ou to pay for the very basics like food, housing, medical care, and heating Hard [facility] Adult Depression Screening Assessment 0 [facility] Work Phone: Do you feel stress - tense, restless, nervous, or anxious, or unable to sleep at night because your mind is troubled all the time - these days [OSQ] Not at all [facility] (I/We) worried whe er (my/our) food would run out before (I/we) got money to buy more. Sometimes true [facility] In the past 12 month s, was there a time when you were not able to pay the mortgage or rent on time? No [facility] Start: 10-04-2020 Gender identity Identifies as female gender (finding) [facility] Medical Equipment Procedure Code Equipment Code Equipment Original Text Equipment Identifier Dates Duraseal 5ml - [id number] Start: 12-23-2012 Comment on above: Description: Seble ruvalcaba Duraseal 5ml - [id number] Start: 01-25-2013 [id number], [id number] Start: 03-18-2020 End: 10-23-2021 Comment on above: Test blood sugar(s) 2 times daily. Dx: Type 2 DM - Uncontrolled E11.65 Insulin: No. Has fluctuating sugars. Test blood sugar(s) one time daily. Dx: Type 2 DM - Controlled E11.9 Insulin: No Test blood sugar(s) 4 times daily. Dx: Type 2 DM - Uncontrolled E11.65 Insulin: No Test blood sugar(s) 4 times daily. Dx: Type 2 DM - Uncontrolled E11.65 Insulin: No. Has fluctuating sugars. Test blood sugar(s) 2 times daily. Dx: Type 2 DM - Uncontrolled E11.65 Insulin: No Test blood sugar(s) 1 times daily. Dx: Type 2 DM - Uncontrolled E11.65 Insulin: No Clinical Notes 03-15-2017 to 02-02-2024 Clarissa Sheehan MA - 02/02/2024 4:52 PM EDTTelephone Encounter - Tyesha العلي APRN.CNP - 01/10/2024 11:17 AM EDTTelephone Encounter - Tyesha العلي APRN.[facility] - 01/10/2024 11:17 AM EDT Note Date & Type Note Facility 02-02-2024 Note HNO ID: [id number] Author: CLARISSA SHEEHAN MA Service: ? Author Type: Hospital Medical Biller Type: Progress Notes Filed: 02/02/2024 16:53 Note Text: POPULATION HEALTH NAVIGATION OUTREACH Action/FYI Left msg AND sent mychart. Reason for Outreach Care Gap/HCC or Scheduling Wellness Visits Care Gaps due: Physical Annual Wellness Visit Follow-up Appointment KED Flu Vaccine Patient Contacted: Unable or unnecessary to reach patient: Left message MyChart message sent HCC related Navigation Signature: Clarissa Sheehan MA February 02, 2024 4:52 PM [facility] 02-02-2024 History of Presen t illness Narrative POPULATION HEALTH NAVIGATION OUTREACH Action/FYI Left msg & sent mychart. Reason for Outreach Care Gap/HCC or Scheduling Wellness Visits Care Gaps due: Physical Annual Wellness Visit Follow-up Appointment KED Flu Vaccine Patient Contacted: Unable or unnecessary to reach patient: Left message MyChart message sent HCC related Navigation Signature: Clarissa Sheehan MA February 02, 2024 4:52 PM documented in this encounter [facility] 02-02-2024 Note Patient Outreach (NE TNAV) PHYLICIA FALK ([id number]) 1965 F Date Time Provider Department 02/02/24 CLARISSA SHEEHAN During your visit today, we recorded the following information about you: Clarissa Sheehan MA 02/02/2024 4:53 PM Signed POPULATION HEALTH NAVIGATION OUTREACH Action/FYI Left msg AND sent mychart. Reason for Outreach Care Gap/HCC or Scheduling Wellness Visits Care Gaps due: Physical Annual Wellness Visit Follow-up Appointment FEDE Flu Vaccine Patient Contacted: Unable or unnecessary to reach patient: Left message [employer] message sent [facility] related Navigation Signature: Clarissa Sheehan MA February 02, 2024 4:52 PM Allergies As of Date: 02/02/2024 Noted Allergy Reaction BEES 01/11/2007 CATS 01/11/2007 CLINDAMYCIN 10/01/2008 4 - Hives DOGS 01/11/2007 DUST 01/11/2007 DUST MITES 01/11/2007 LATEX 01/11/2007 LYRICA (PREGABALIN) 01/11/2009 7 - Swelling MOLD 02/24/2007 VANCOMYCIN 11/22/2021 14 - Other: See Comments Date Reviewed: 04/13/2023 Reviewed by: Jose De Jesus Lopez LPN - Fully Assessed Reason for Visit: Population Health Navigation Outreach [3910] Cmt: Heather [facility] Prescriptions as of 02/02/2024 - metFORMIN (GLUCOPHAGE) 500 mg tablet Take 1 tablet by mouth daily with breakfast. - levothyroxine (LEVOXYL) 100 mcg tablet Take 1 tablet by mouth once daily. Except none on Wednesday - baclofen 10 mg tablet TAKE 1 TABLET BY MOUTH THREE TIMES DAILY NEEDED FOR MUSCLE SPASM. DO NOT USE WITH FLEXERIL - liothyronine (CYTOMEL) 25 mcg tablet Take 1 tablet by mouth once daily. - armodafinil (NUVIGIL) 150 mg tab Take 1 tablet by mouth two times a day for 90 days. - tirzepatide (MOUNJARO) 5 mg/0.5 mL pen injector Inject 5 mg subcutaneously one time a week. - montelukast (SINGULAIR) 10 mg tablet Take 1 tablet by mouth daily at bedtime. - EPINEPHrine (EPIPEN) 0.3 mg/0.3 mL auto-injector Use as directed - blood sugar diagnostic (BLOOD GLUCOSE TEST) test strip Test blood sugar(s) 1 times daily. Dx: Type 2 DM - Uncontrolled E11.65 Insulin: No - Lancets lancets Test blood sugar(s) 1 times daily. Dx: Type 2 DM - Uncontrolled E11.65 Insulin: No - Blood-Glucose Meter 1 Each as directed. - levocetirizine 5 mg tablet Take 1 tablet by mouth once daily. - ibuprofen (MOTRIN) 200 mg tablet Take 200 mg by mouth every 6 hours as needed. Problem List As Of Date 02/02/2024 Noted Resolved Cough [R05.9] 03/29/2006 03/11/2018 Hypothyroidism [E03.9] 01/11/2007 Reflex sympathetic dystrophy of lower limb [G90*01/11/2007 Allergic rhinitis, cause unspecified [J30.9] 01/11/2007 03/11/2018 Sleep disorder [G47.9] 01/11/2007 03/11/2018 Spinal stenosis, lumbar region, without neuroge*11/08/2008 Postlaminectomy syndrome, lumbar region [M96.1] 11/08/2008 03/11/2018 Thoracic or lumbosacral neuritis or radiculitis*11/08/2008 03/11/2018 Degeneration of lumbar or lumbosacral intervert*11/08/2008 03/11/2018 Lumbosacral spondylosis without myelopathy [M47*11/08/2008 03/11/2018 LUMBAR DISC DISPLACEMENT [M51.26] 11/08/2008 Brachial neuritis or radiculitis NOS [M54.12] 11/08/2008 03/11/2018 Sprain of neck [S13.9XXA] 11/08/2008 03/11/2018 Cervicalgia [M54.2] 11/08/2008 03/11/2018 Fibromyalgia [M79.7] 03/05/2009 Spinal stenosis, lumbar region, with neurogenic*12/06/2012 03/11/2018 Other specified acquired hypothyroidism [E03.8] 06/08/2022 Muscle spasm [M62.838] 06/08/2022 Narcolepsy [G47.419] Allergic rhinitis [J30.9] Nausea [R11.0] 12/26/2012 03/11/2018 Spinal headache [G97.1] 12/26/2012 03/11/2018 Postoperative CSF leak [G97.82, G96.00] 01/24/2013 03/11/2018 Hyperglycemia [R73.9] 03/15/2017 04/17/2019 Type 2 diabetes mellitus with complication, wit*08/12/2017 Adhesive capsulitis of right shoulder [M75.01] 01/20/2019 Calcific tendinitis of right shoulder [M75.31] 01/20/2019 Chronic right shoulder pain [M25.511, G89.29] 01/20/2019 Bilateral carotid artery stenosis [I65.23] 12/16/2021 Chronic ulcer of right foot due to diabetes norma*04/13/2023 Encounter Status:Closed by CLARISSA SHEEHAN on 02/02/24 [facility] 01-10-2024 Telephone encounter Note The following approved medication requests have been transmitted electronically. Requested Prescriptions Pending Prescriptions Disp Refills metFORMIN (GLUCOPHAGE) 500 mg tablet 90 tablet 0 Sig: Take 1 tablet by mouth daily with breakfast. Refused Prescriptions Disp Refills armodafinil (NUVIGIL) 150 mg tab 60 tablet 0 Sig: Take 1 tablet by mouth two times a day for 90 days. Refused By: TYESHA العلي Reason for Refusal: A Refill not appropriate Tyesha العلي APRN.CNP [facility] 01-10-2024 Telephone encounter Note Nuvigil is controlled. Must be seen every 3 months for refill. Urine tox screen every 6 months. This is required by the COMPA. Also, overdue for appt. Last HgA1c was >11. [facility] 01-10-2024 Miscellaneous Notes The following approved medication requests have been transmitted electronically. Requested Prescriptions Pending Prescriptions Disp Refills metFORMIN (GLUCOPHAGE) 500 mg tablet 90 tablet 0 Sig: Take 1 tablet by mouth daily with breakfast. Refused Prescriptions Disp Refills armodafinil (NUVIGIL) 150 mg tab 60 tablet 0 Sig: Take 1 tablet by mouth two times a day for 90 days. Refused By: TYESHA العلي Reason for Refusal: A Refill not appropriate Tyesha العلي APRN.CNP Nuvigil is controlled. Must be seen every 3 months for refill. Urine tox screen every 6 months. This is required by the COMPA. Also, overdue for appt. Last HgA1c was >11. Prescription Refill Information The patient has been identified by name and date of : Yes Caregiver verified no other encounters exist for this prescription request: Yes Caregiver confirmed with patient/requestor that no other refills are due, in the near future, with this provider at this time: Yes The last office visit in the department: 04/13/23 Does the patient have a future office visit with this provider/department: No Requested Prescriptions Pending Prescriptions Disp Refills armodafinil (NUVIGIL) 150 mg tab 60 tablet 2 Sig: Take 1 tablet by mouth two times a day for 90 days. metFORMIN (GLUCOPHAGE) 500 mg tablet 90 tablet 0 Sig: Take 1 tablet by mouth daily with breakfast. Vishnu Montes De Oca LPN January 10, 2024 8:44 AM documented in this encounter [facility] 01-10-2024 Telephone encounter Note Prescription Refill Information The patient has been identified by name and date of : Yes Caregiver verified no other encounters exist for this prescription request: Yes Caregiver confirmed with patient/requestor that no other refills are due, in the near future, with this provider at this time: Yes The last office visit in the department: 04/13/23 Does the patient have a future office visit with this provider/department: No Requested Prescriptions Pending Prescriptions Disp Refills armodafinil (NUVIGIL) 150 mg tab 60 tablet 2 Sig: Take 1 tablet by mouth two times a day for 90 days. metFORMIN (GLUCOPHAGE) 500 mg tablet 90 tablet 0 Sig: Take 1 tablet by mouth daily with breakfast. Vishnu Montes De Oca LPN January 10, 2024 8:44 AM [facility] 12-29-2023 Telephone encounter Note Prescription Refill Information The patient has been identified by name and date of : Yes Caregiver verified no other encounters exist for this prescription request: Yes Caregiver confirmed with patient/requestor that no other refills are due, in the near future, with this provider at this time: Yes The last office visit in the department: 04/13/23 Does the patient have a future office visit with this provider/department: No Requested Prescriptions Pending Prescriptions Disp Refills levothyroxine (LEVOXYL) 100 mcg tablet 30 tablet 3 Sig: Take 1 tablet by mouth once daily. Except none on Wednesday baclofen 10 mg tablet 90 tablet 1 Sig: TAKE 1 TABLET BY MOUTH THREE TIMES DAILY NEEDED FOR MUSCLE SPASM. DO NOT USE WITH FLEXCRISTIANOL Jose De Jesus Lopez LPN December 29, 2023 3:10 PM [facility] 12-29-2023 Miscellaneous Notes Prescription Refill Information The patient has been identified by name and date of : Yes Caregiver verified no other encounters exist for this prescription request: Yes Caregiver confirmed with patient/requestor that no other refills are due, in the near future, with this provider at this time: Yes The last office visit in the department: 04/13/23 Does the patient have a future office visit with this provider/department: No Requested Prescriptions Pending Prescriptions Disp Refills levothyroxine (LEVOXYL) 100 mcg tablet 30 tablet 3 Sig: Take 1 tablet by mouth once daily. Except none on Wednesday baclofen 10 mg tablet 90 tablet 1 Sig: TAKE 1 TABLET BY MOUTH THREE TIMES DAILY NEEDED FOR MUSCLE SPASM. DO NOT USE WITH FLEXCRISTIANOL Jose De Jesus Lopez LPN December 29, 2023 3:10 PM documented in this encounter [facility] 11-16-2023 Note HNO ID: [id number] Author: CLARISSA SHEEHAN MA Service: ? Author Type: Hospital Medical Biller Type: Progress Notes Filed: 11/16/2023 13:42 Note Text: POPULATION HEALTH NAVIGATION OUTREACH Action/FYI Patient declined scheduling. Reason for Outreach Returned Call/MyChart Patient Contacted: Spoke to patient/parent/or legal guardian Patient identified by name and date of : Yes Returned call/MyChart actions taken: Patient declined: Not interested in scheduling Navigation Signature: Clarissa Sheehan MA November 16, 2023 1:42 PM POPULATION HEALTH NAVIGATION OUTREACH Action/FYI Left msg AND sent mychart. Reason for Outreach Care Gap/HCC or Scheduling Wellness Visits Care Gaps due: Physical Annual Wellness Visit Diabetic Eye Exam UACR Patient Contacted: Unable or unnecessary to reach patient: Left message MyChart message sent Navigation Signature: Clarissa Sheehan MA November 16, 2023 1:11 PM [facility] 11-16-2023 History of Presen t illness Narrative POPULATION HEALTH NAVIGATION OUTREACH Action/FYI Patient declined scheduling. Reason for Outreach Returned Call/MyChart Patient Contacted: Spoke to patient/parent/or legal guardian Patient identified by name and date of : Yes Returned call/MyChart actions taken: Patient declined: Not interested in scheduling Navigation Signature: Clarissa Sheehan MA November 16, 2023 1:42 PM POPULATION HEALTH NAVIGATION OUTREACH Action/FYI Left msg & sent mychart. Reason for Outreach Care Gap/HCC or Scheduling Wellness Visits Care Gaps due: Physical Annual Wellness Visit Diabetic Eye Exam UACR Patient Contacted: Unable or unnecessary to reach patient: Left message MyCHiLo Ticketst message sent Navigation Signature: Clarissa Sheehan MA November 16, 2023 1:11 PM documented in this encounter [facility] 11-16-2023 Note Patient Outreach (BRUNA TNAV) PHYLICIA FALK ([id number]) 1965 F Date Time Provider Department 11/16/23 CLARISSA SHEEHAN During your visit today, we recorded the following information about you: Clarissa Sheehan MA 11/16/2023 1:42 PM Addendum POPULATION HEALTH NAVIGATION OUTREACH Action/FYI Patient declined scheduling. Reason for Outreach Returned Call/MyChart Patient Contacted: Spoke to patient/parent/or legal guardian Patient identified by name and date of : Yes Returned call/MyChart actions taken: Patient declined: Not interested in scheduling Navigation Signature: Clarissa Sheehan MA November 16, 2023 1:42 PM POPULATION HEALTH NAVIGATION OUTREACH Action/FYI Left msg AND sent mychart. Reason for Outreach Care Gap/HCC or Scheduling Wellness Visits Care Gaps due: Physical Annual Wellness Visit Diabetic Eye Exam UACR Patient Contacted: Unable or unnecessary to reach patient: Left message MyChart message sent Navigation Signature: Clarissa Sheehan MA November 16, 2023 1:11 PM Allergies As of Date: 11/16/2023 Noted Allergy Reaction BEES 01/11/2007 CATS 01/11/2007 CLINDAMYCIN 10/01/2008 4 - Hives DOGS 01/11/2007 DUST 01/11/2007 DUST MITES 01/11/2007 LATEX 01/11/2007 LYRICA (PREGABALIN) 01/11/2009 7 - Swelling MOLD 02/24/2007 VANCOMYCIN 11/22/2021 14 - Other: See Comments Date Reviewed: 04/13/2023 Reviewed by: Jose De Jesus Lopez LPN - Fully Assessed Reason for Visit: Population Health Navigation Outreach [[id number]] Cmt: Heather [facility] Prescriptions as of 11/16/2023 - baclofen 10 mg tablet TAKE 1 TABLET BY MOUTH THREE TIMES DAILY NEEDED FOR MUSCLE SPASM. DO NOT USE WITH FLEXERIL - liothyronine (CYTOMEL) 25 mcg tablet Take 1 tablet by mouth once daily. - metFORMIN (GLUCOPHAGE) 500 mg tablet Take 1 tablet by mouth daily with breakfast. - armodafinil (NUVIGIL) 150 mg tab Take 1 tablet by mouth two times a day for 90 days. - levothyroxine (LEVOXYL) 100 mcg tablet Take 1 tablet by mouth once daily. Except none on Wednesday - tirzepatide (MOUNJARO) 5 mg/0.5 mL pen injector Inject 5 mg subcutaneously one time a week. - montelukast (SINGULAIR) 10 mg tablet Take 1 tablet by mouth daily at bedtime. - EPINEPHrine (EPIPEN) 0.3 mg/0.3 mL auto-injector Use as directed - blood sugar diagnostic (BLOOD GLUCOSE TEST) test strip Test blood sugar(s) 1 times daily. Dx: Type 2 DM - Uncontrolled E11.65 Insulin: No - Lancets lancets Test blood sugar(s) 1 times daily. Dx: Type 2 DM - Uncontrolled E11.65 Insulin: No - Blood-Glucose Meter 1 Each as directed. - levocetirizine 5 mg tablet Take 1 tablet by mouth once daily. - ibuprofen (MOTRIN) 200 mg tablet Take 200 mg by mouth every 6 hours as needed. Problem List As Of Date 11/16/2023 Noted Resolved Cough [R05.9] 03/29/2006 03/11/2018 Hypothyroidism [E03.9] 01/11/2007 Reflex sympathetic dystrophy of lower limb [G90*01/11/2007 Allergic rhinitis, cause unspecified [J30.9] 01/11/2007 03/11/2018 Sleep disorder [G47.9] 01/11/2007 03/11/2018 Spinal stenosis, lumbar region, without neuroge*11/08/2008 Postlaminectomy syndrome, lumbar region [M96.1] 11/08/2008 03/11/2018 Thoracic or lumbosacral neuritis or radiculitis*11/08/2008 03/11/2018 Degeneration of lumbar or lumbosacral intervert*11/08/2008 03/11/2018 Lumbosacral spondylosis without myelopathy [M47*11/08/2008 03/11/2018 LUMBAR DISC DISPLACEMENT [M51.26] 11/08/2008 Brachial neuritis or radiculitis NOS [M54.12] 11/08/2008 03/11/2018 Sprain of neck [S13.9XXA] 11/08/2008 03/11/2018 Cervicalgia [M54.2] 11/08/2008 03/11/2018 Fibromyalgia [M79.7] 03/05/2009 Spinal stenosis, lumbar region, with neurogenic*12/06/2012 03/11/2018 Other specified acquired hypothyroidism [E03.8] 06/08/2022 Muscle spasm [M62.838] 06/08/2022 Narcolepsy [G47.419] Allergic rhinitis [J30.9] Nausea [R11.0] 12/26/2012 03/11/2018 Spinal headache [G97.1] 12/26/2012 03/11/2018 Postoperative CSF leak [G97.82, G96.00] 01/24/2013 03/11/2018 Hyperglycemia [R73.9] 03/15/2017 04/17/2019 Type 2 diabetes mellitus with complication, wit*08/12/2017 Adhesive capsulitis of right shoulder [M75.01] 01/20/2019 Calcific tendinitis of right shoulder [M75.31] 01/20/2019 Chronic right shoulder pain [M25.511, G89.29] 01/20/2019 Bilateral carotid artery stenosis [I65.23] 12/16/2021 Chronic ulcer of right foot due to diabetes norma*04/13/2023 Encounter Status:Closed by CLARISSA SHEEHAN on 11/16/23 [facility] 11-01-2023 Telephone encounter Note Referral faxed. Jose De Jesus Lopez LPN [facility] 11-01-2023 Miscellaneous Notes Referral faxed. Jose De Jesus Lopez LPN Referral placed. Please help schedule. Yris Kelley APRN.PRELOAD SUPERVISOR TC to pt, notified of provider response. Pt states she was only on Mounjaro for the 1st 2 months and stopped d/t cost. She never picked up the increased dose. Pt states ok, I think I'm going to go back to Dr. Osman . (Endo in [place].) Jose De Jesus Lopez LPN The thyroid labs are stable. Her TSH was within normal, and her free T4 was stable. She is on T3, so that is expected to be elevated. How long has she been off the mounjaro? It looks like the dose was increased in April. We need to get her on something else, as this is too high. We can try another injectable or a pill and see if it has better coverage. Patient notified of results, verbalizes understanding of instructions. Pt stated she is not taking the Mounjaro to expensive. And T3 and T4 labs are off. Amy St LPN Can we please let patient know that I received her lab results. Her A1C went up to 11.2, which is too high. Has she been taking the metformen and the mounjaro? Any missed doses? Yris Kelley APRN.EVI documented in this encounter [facility] 11-01-2023 Telephone encounter Note Referral placed. Please help schedule. Yris Kelley APRN.EVI [facility] 11-01-2023 Telephone encounter Note TC to pt, notified of provider response. Pt states she was only on Mounjaro for the 1st 2 months and stopped d/t cost. She never picked up the increased dose. Pt states ok, I think I'm going to go back to Dr. Osman . (Endo in [place].) Jose De Jesus Lopez LPN [facility] 11-01-2023 Telephone encounter Note The thyroid labs are stable. Her TSH was within normal, and her free T4 was stable. She is on T3, so that is expected to be elevated. How long has she been off the mounjaro? It looks like the dose was increased in April. We need to get her on something else, as this is too high. We can try another injectable or a pill and see if it has better coverage. T [facility] 11-01-2023 Telephone encounter Note Patient notified of results, verbalizes understanding of instructions. Pt stated she is not taking the Mounjaro to expensive. And T3 and T4 labs are off. Amy St LPN T [facility] 11-01-2023 Telephone encounter Note Can we please let patient know that I received her lab results. Her A1C went up to 11.2, which is too high. Has she been taking the metformen and the mounjaro? Any missed doses? Yris Kelley APRN.EVI T [facility] 10-19-2023 Telephone encounter Note Patient has been identified by name and date of : Yes, Patient phones for refill(s): Requested Prescriptions Pending Prescriptions Disp Refills baclofen 10 mg tablet 90 tablet 1 Sig: TAKE 1 TABLET BY MOUTH THREE TIMES DAILY NEEDED FOR MUSCLE SPASM. DO NOT USE WITH FLEXERIL liothyronine (CYTOMEL) 25 mcg tablet 90 tablet 0 Sig: Take 1 tablet by mouth once daily. metFORMIN (GLUCOPHAGE) 500 mg tablet 90 tablet 0 Sig: Take 1 tablet by mouth daily with breakfast. Date of last office visit in primary care: 04/13/2023 Date of next office visit in primary care: Visit date not found Please advise. Thank you. Tyesha Hung LPN. [facility] 10-19-2023 Miscellaneous Notes Patient has been identified by name and date of : Yes, Patient phones for refill(s): Requested Prescriptions Pending Prescriptions Disp Refills baclofen 10 mg tablet 90 tablet 1 Sig: TAKE 1 TABLET BY MOUTH THREE TIMES DAILY NEEDED FOR MUSCLE SPASM. DO NOT USE WITH FLEXERIL liothyronine (CYTOMEL) 25 mcg tablet 90 tablet 0 Sig: Take 1 tablet by mouth once daily. metFORMIN (GLUCOPHAGE) 500 mg tablet 90 tablet 0 Sig: Take 1 tablet by mouth daily with breakfast. Date of last office visit in primary care: 04/13/2023 Date of next office visit in primary care: Visit date not found Please advise. Thank you. Tyesha Hung LPN. documented in this encounter [facility] 07-16-2023 Miscellaneous Notes Patient has been identified by name and date of : Yes, Patient phones for refill(s): Requested Prescriptions Pending Prescriptions Disp Refills armodafinil (NUVIGIL) 150 mg tab 60 tablet 2 Sig: Take 1 tablet by mouth two times a day for 90 days. levothyroxine (LEVOXYL) 100 mcg tablet 30 tablet 3 Sig: Take 1 tablet by mouth once daily. Except none on Wednesday liothyronine (CYTOMEL) 25 mcg tablet 90 tablet 0 Sig: Take 1 tablet by mouth once daily. metFORMIN (GLUCOPHAGE) 500 mg tablet 90 tablet 0 Sig: Take 1 tablet by mouth daily with breakfast. Date of last office visit in primary care: 04/13/2023 Date of next office visit in primary care: Visit date not found Please advise. Thank you. Tyesha Hung LPN. documented in this encounter [facility] 05-05-2023 Miscellaneous Notes Patient last visit 04/13/23 Follow up appointment scheduled none Sharyn Blancally signed by Sharyn Hurt Ma at 05/05/2023 11:51 AM EST documented in this encounter [facility] 04-26-2023 Miscellaneous Notes Patient phones requesting refills as follows: Requested Prescriptions Pending Prescriptions Disp Refills baclofen 10 mg tablet 90 tablet 1 Sig: TAKE 1 TABLET BY MOUTH THREE TIMES DAILY NEEDED FOR MUSCLE SPASM. DO NOT USE WITH FLEXERIL SIMBA 04/13/23 NOV no upcoming appt Please review and advise. Jose De Jesus Lopez documented in this encounter [facility] 04-21-2023 Miscellaneous Notes April 21, 2023 PID: [id number] Phylicia Falk [address], [place] [address] Dear Ms. Falk, We are pleased to inform you that the results of your recent breast imaging exam on 04/21/2023 are normal. Early detection of cancer is very important. We also understand recommendations regarding breast cancer screening are controversial. Please discuss with your primary care provider which strategy is best for you and whether a mammogram is right for you. Your imaging studies and report will be kept on file at [facility] as part of your permanent medical record and are available for your continuing care. Thank you for allowing us to help in meeting your health care needs. Sincerely, Dr. Madison Interpreting Radiologist [facility] (Normal over 40) documented in this encounter [facility] 04-21-2023 Note HNO ID: [id number] Author: Ellie Huggins, Mammo Tech Service: ? Author Type: Home And Family Living Professor Type: Progress Notes Filed: 04/21/2023 9:04 AM Note Text: Radiology Service Progress Note PATIENT NAME: Phylicia Falk DATE OF SERVICE: April 21, 2023 TIME: 8:52 AM PATIENT IDENTITY VERIFICATION COMPLETED USING TWO (2) IDENTIFIERS: Name and Date of confirmed by patient verbally. FALL SCREENING: Has the patient had 2 falls in the last year or 1 fall with injury or currently using an Ambulatory Assistive Device (Walker, Cane, Wheelchair, Crutches, etc.)? No PATIENT GENDER DATA: Female. status: : No status: NO. PATIENT RELEVANT IMPLANT DATA REVIEWED: Not Applicable RADIOLOGY DEPARTMENT: Mammography PERIPHERAL IV DATA: Not applicable SIGNED BY: Ellie Huggins [employer] April 21, 2023 8:52 AM [facility] 04-13-2023 Instructions Yris Kelley APRN.CNP - 04/13/2023 8:34 AM EST Continue the same medication. Get labs and recheck in 3 months. (Fasting labs). Schedule carotid duplex when ready. documented in this encounter [facility] 04-13-2023 Note HNO ID: [id number] Author: Yris Kelley APRN.EVI Service: ? Author Type: Nurse Practitioner Type: Progress Notes Filed: 04/13/2023 12:35 PM Note Text: This is a 57 year old female who presents today with: Patient presents with: 6 Month Exam HISTORY OF PRESENT ILLNESS: Phylicia Falk is a 57 year old female. Patient presents with: 6 Month Exam Pt presents today for 6 month follow-up. DM: Reports overall feeling well. Medication side effects: No. Home sugar checks: typically checks regularly. 195 today. Hypoglycemic spells: can feel lows about twice a week (doesn't check). Watching diet: Yes. Unexpected weight loss: No. Polyuria, polydipsia: No. Vision Changes: No. Foot lesions or numbness or pain: hasn't had feeling from knees down d/t back problems. HYPOTHYROID: Patient is compliant with medications: Yes Patient has changes in energy: No Patient has changes in hair or skin: No Patient has temperature intolerance: No Patient has weight changes: No Narcolepsy. Nuvigil working well. PAST MEDICAL HISTORY: 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 PICC LINE INSERT/CONSULT 01/27/2013 REPAIR OF ANKLE FRACTURE Right 04/2017 TONSILLECTOMY AND ADENOIDECTOMY AGE 11/> also took uvula ALLERGIES Bees, Cats, Clindamycin, Dogs, Dust, Dust Mites, Latex, Lyrica [Pregabalin], Mold, and Vancomycin MEDICATIONS Current Outpatient Medications Medication Sig liothyronine (CYTOMEL) 25 mcg tablet Take 1 tablet by mouth once daily. metFORMIN (GLUCOPHAGE) 500 mg tablet Take 1 tablet by mouth daily with breakfast. tirzepatide (MOUNJARO) 2.5 mg/0.5 mL pen injector Inject 2.5 mg subcutaneously one time a week. levothyroxine (LEVOXYL) 100 mcg tablet Take 1 tablet by mouth once daily. Except none on Wednesday montelukast (SINGULAIR) 10 mg tablet Take 1 tablet by mouth daily at bedtime. armodafinil (NUVIGIL) 150 mg tab Take 1 tablet by mouth twice daily for 90 days. baclofen (LIORESAL) 10 mg tablet TAKE 1 TABLET BY MOUTH THREE TIMES DAILY NEEDED FOR MUSCLE SPASM. DO NOT USE WITH FLEXERIL EPINEPHrine (EPIPEN) 0.3 mg/0.3 mL auto-injector Use as directed blood sugar diagnostic (BLOOD GLUCOSE TEST) test strip Test blood sugar(s) 1 times daily. Dx: Type 2 DM - Uncontrolled E11.65 Insulin: No Lancets lancets Test blood sugar(s) 1 times daily. Dx: Type 2 DM - Uncontrolled E11.65 Insulin: No Blood-Glucose Meter 1 Each as directed. Blood-Glucose Meter Use as directed levocetirizine 5 mg tablet Take 1 tablet by mouth once daily. ibuprofen (MOTRIN) 200 mg tablet Take 200 mg by mouth every 6 hours as needed. No current facility-administered medications for this visit. FAMILY HISTORY Problem Relation Age of Onset other (endometriosis) Mother hysterectomy Cancer Father skin Seizures Father Stroke Father other (parkinson's disease) Father Alzheimer's Disease Father Seizures Brother Breast Cancer Maternal Grandmother Cervical Cancer Maternal Grandmother Social History Tobacco Use Smoking status: Former Packs/day: 0.10 Years: 9.00 Additional pack years: 0.00 Total pack years: 0.90 Types: Cigarettes Quit date: 10/28/1989 Years since quittin.4 Smokeless tobacco: Never Vaping Use Vaping Use: Never used Substance Use Topics Alcohol use: Yes Comment: 6-10 times a year Drug use: No EXAM: BP 104/72 Pulse 98 Resp 16 LMP 07/23/2016 (Exact Date) SpO2 96% PHYSICAL EXAM: General Appearance: Well appearing, alert, in no acute distress, well-hydrated, well nourished. Skin: Skin color, texture, turgor normal, no suspicious rashes or lesions. Head: Normocephalic, no masses, lesions, tenderness or abnormalities. Eyes: Anicteric sclera. Extraocular movements are intact. . Neck: Supple, no adenopathy; thyroid symmetric, normal size, no bruits. Lungs: Lungs clear to auscultation. No wheezing, rhonchi, rales.. Heart: RRR without murmur, gallop, or rubs. No ectopy. Extremities: No deformities, edema, skin discoloration, clubbing or cyanosis. Good capillary refill. . Neurologic: Gait normal. ASSESSMENT/PLAN: 1. Type 2 diabetes mellitus with complication, without long-term current use of insulin (HCC) - ICD9: 250.90, ICD10: E11.8 (primary diagnosis) - Uncontrolled - Continue current medications -- declines medication change at this time. Would like to work on diet. Plan to recheck level in 3 month (more content not included)... [facility] 04-13-2023 History of Presen t illness Narrative This is a 57 year old female who presents today with: Patient presents with: 6 Month Exam HISTORY OF PRESENT ILLNESS: Phylicia Falk is a 57 year old female. Patient presents with: 6 Month Exam Pt presents today for 6 month follow-up. DM: Reports overall feeling well. Medication side effects: No. Home sugar checks: typically checks regularly. 195 today. Hypoglycemic spells: can feel lows about twice a week (doesn't check). Watching diet: Yes. Unexpected weight loss: No. Polyuria, polydipsia: No. Vision Changes: No. Foot lesions or numbness or pain: hasn't had feeling from knees down d/t back problems. HYPOTHYROID: Patient is compliant with medications: Yes Patient has changes in energy: No Patient has changes in hair or skin: No Patient has temperature intolerance: No Patient has weight changes: No Narcolepsy. Nuvigil working well. PAST MEDICAL HISTORY: 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 PICC LINE INSERT/CONSULT 01/27/2013 REPAIR OF ANKLE FRACTURE Right 04/2017 TONSILLECTOMY & ADENOIDECTOMY AGE 11/> also took uvula ALLERGIES Bees, Cats, Clindamycin, Dogs, Dust, Dust Mites, Latex, Lyrica [Pregabalin], Mold, and Vancomycin MEDICATIONS Current Outpatient Medications Medication Sig liothyronine (CYTOMEL) 25 mcg tablet Take 1 tablet by mouth once daily. metFORMIN (GLUCOPHAGE) 500 mg tablet Take 1 tablet by mouth daily with breakfast. tirzepatide (MOUNJARO) 2.5 mg/0.5 mL pen injector Inject 2.5 mg subcutaneously one time a week. levothyroxine (LEVOXYL) 100 mcg tablet Take 1 tablet by mouth once daily. Except none on Wednesday montelukast (SINGULAIR) 10 mg tablet Take 1 tablet by mouth daily at bedtime. armodafinil (NUVIGIL) 150 mg tab Take 1 tablet by mouth twice daily for 90 days. baclofen (LIORESAL) 10 mg tablet TAKE 1 TABLET BY MOUTH THREE TIMES DAILY NEEDED FOR MUSCLE SPASM. DO NOT USE WITH FLEXERIL EPINEPHrine (EPIPEN) 0.3 mg/0.3 mL auto-injector Use as directed blood sugar diagnostic (BLOOD GLUCOSE TEST) test strip Test blood sugar(s) 1 times daily. Dx: Type 2 DM - Uncontrolled E11.65 Insulin: No Lancets lancets Test blood sugar(s) 1 times daily. Dx: Type 2 DM - Uncontrolled E11.65 Insulin: No Blood-Glucose Meter 1 Each as directed. Blood-Glucose Meter Use as directed levocetirizine 5 mg tablet Take 1 tablet by mouth once daily. ibuprofen (MOTRIN) 200 mg tablet Take 200 mg by mouth every 6 hours as needed. No current facility-administered medications for this visit. FAMILY HISTORY Problem Relation Age of Onset other (endometriosis) Mother hysterectomy Cancer Father skin Seizures Father Stroke Father other (parkinson's disease) Father Alzheimer's Disease Father Seizures Brother Breast Cancer Maternal Grandmother Cervical Cancer Maternal Grandmother Social History Tobacco Use Smoking status: Former Packs/day: 0.10 Years: 9.00 Additional pack years: 0.00 Total pack years: 0.90 Types: Cigarettes Quit date: 10/28/1989 Years since quittin.4 Smokeless tobacco: Never Vaping Use Vaping Use: Never used Substance Use Topics Alcohol use: Yes Comment: 6-10 times a year Drug use: No EXAM: BP 104/72 Pulse 98 Resp 16 LMP 07/23/2016 (Exact Date) SpO2 96% PHYSICAL EXAM: General Appearance: Well appearing, alert, in no acute distress, well-hydrated, well nourished. Skin: Skin color, texture, turgor normal, no suspicious rashes or lesions. Head: Normocephalic, no masses, lesions, tenderness or abnormalities. Eyes: Anicteric sclera. Extraocular movements are intact. . Neck: Supple, no adenopathy; thyroid symmetric, normal size, no bruits. Lungs: Lungs clear to auscultation. No wheezing, rhonchi, rales.. Heart: RRR without murmur, gallop, or rubs. No ectopy. Extremities: No deformities, edema, skin discoloration, clubbing or cyanosis. Good capillary refill. . Neurologic: Gait normal. ASSESSMENT/PLAN: 1. Type 2 diabetes mellitus with complication, without long-term current use of insulin (HCC) - ICD9: 250.90, ICD10: E11.8 (primary diagnosis) - Uncontrolled - Continue current medications -- declines medication change at this time. Would like to work on diet. Plan to recheck level in 3 months. - HGB A1C 2. Narcolepsy due to underlying condition without cataplexy - ICD9: 347.10, ICD10: G47.429 Stable on the nuvigil. Med agreement and tox screen today. - TOX SCREEN ROUT UR - PAIN PANEL, UR QUANT - PAIN PANEL, UR QUANT - TOX SCREEN ROUT UR - PAIN PANEL, UR QUANT - SPECIMEN VALIDITY, URINE 3. Medication management - ICD9: V58.69, ICD10: Z79.899 As above. - TOX SCREEN ROUT UR - PAIN PANEL, UR QUANT - PAIN PANEL, UR QUANT - TOX SCREEN ROUT UR - PAIN PANEL, UR QUANT - SPECIMEN VALIDITY, URINE 4. Bilateral carotid artery stenosis - ICD9: 433.10, 433.30, ICD10: I65.23 Due for surveillance. - US CAROTID ARTERIES [facility] 5. Hypothyroidism, unspecified type - ICD9: 244.9, ICD10: E03.9 - TSH BLD - T3 BLD - T4 FREE/FREE THYROX 6. Hyperlipidemia, mixed - ICD9: 272.2, ICD10: E78.2 - Control undetermined, due for labs - Continue current medications - Counseled on healthy diet and regular exercise - LIPID PANEL BASIC 7. Encounter for immunization - ICD9: V03.89, ICD10: Z23 - INFLUENZA VACCINE, AGE 6 MO - 64 YR, QUADRIVALENT (AFLURIA, FLULAVAL, FLUZONE) Discussed treatment plan and patient voices understanding. Patient's questions answered appropriately. Medications and potential side effects were discussed and patient voices understanding. Return to the office as scheduled or as needed for worsening/no improvement. Yris Kelley APRN.PRELOAD SUPERVISOR documented in this encounter [facility] 04-01-2023 Miscellaneous Notes Booked apt for 04/13/23 with Yris Kelley @8 am arriving at 7:45 am. Sent [employer] message with above and to call back if this does not work for her. Anahi Layton LPN [facility] message sent. Jose De Jesus Lopez Script sent. Due for an appointment. Please let patient know. Yris Kelley APRN.PRELOAD SUPERVISOR Patient phones requesting refills as follows: Requested Prescriptions Pending Prescriptions Disp Refills liothyronine (CYTOMEL) 25 mcg tablet 90 tablet 0 Sig: Take 1 tablet by mouth once daily. metFORMIN (GLUCOPHAGE) 500 mg tablet 90 tablet 1 Sig: Take 1 tablet by mouth daily with breakfast. SIMBA 09/29/22 NOV no upcoming appt Please review and advise. Jose De Jesus Lopez documented in this encounter [facility] 03-30-2023 Miscellaneous Notes Patient phones requesting refills as follows: Requested Prescriptions Pending Prescriptions Disp Refills tirzepatide (MOUNJARO) 2.5 mg/0.5 mL pen injector 2 mL 0 Sig: Inject 2.5 mg subcutaneously one time a week. SIMBA 09/29/22 NOV no upcoming appt Please review and advise. Jose De Jesus Lopez documented in this encounter [facility] 03-05-2023 Miscellaneous Notes Edwin with [employer] called with authorization numbers for approvals below. 1) Armodafinil PA # [id number] for 12 months 03-04-23 thru 03-04-24 2) Mounjaro PA # [id number] for 12 months 03-04-23 thru 1-=12=24. Anahi Layton LPN PA for Nuvigil was approved and patient notified through valentin Hurt Ma Received PA request for Nuvigil and requested PA questionnaire. Spoke to patient who advised new insurance is needing PA completed and aware will be notified after insurance makes decision Patient aware last sleep test was 2010 and if denied will need to get back in with neurology. Patient declined she does not want to go through hassle of seeing more providers and sleepy test. Sharyn Hurt Ma documented in this encounter [facility] 02-22-2023 Miscellaneous Notes Approval scanned into chart. Reyna Garcia MA Approval faxed to Ayana. Nor[facility] - phoned to report Cass has been approved for 12 months: 02-19-23 to 02-20-24. Norah will fax approval to Dr. Duffy office. Fax number given. Notified patient. Called to check on status with Irina and advised need to call Heather who is handling PA Heather PA number [phone] Spoke to Heather [facility] who checked on status of PA and is still pending and pushed to expedite due to being diabetic Sharyn Hurt Ma Electronic PA submitted for Cass Hurt Ma documented in this encounter [facility] 01-02-2023 History of Presen t illness Narrative This note was created using Search to [employer]. Subjective Phylicia Falk is a 57 year old female. 57 year old female with PMH fibromylalgia, thyroid, and spinal stenosis presents with complaints of possible UTI Acute onset 3 days + suprapubic pressure +frequency +burning Denies recent coitus Denies abdominal pain Denies vaginal bleeding Denies vaginal discharge Denies fever Denies using OTC or homeopathic States she had been working at [employer] all week, and holding her urine. The history is provided by the patient. No blackjack dealer was used. UTI This is a new problem. The current episode started more than 2 days ago. The problem occurs every urination. The problem has been gradually worsening. The quality of the pain is described as burning. The pain is at a severity of 7/10. There has been no fever. She is Not sexually active. Associated symptoms include frequency and urgency. Pertinent negatives include no chills, no sweats, no nausea, no vomiting, no discharge, no hematuria, no hesitancy, no possible and no flank pain. She has tried nothing for the symptoms. Her past medical history does not include kidney stones, single kidney, urological procedure, recurrent UTIs, urinary stasis or catheterization. 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 PICC LINE INSERT/CONSULT 01/27/2013 REPAIR OF ANKLE FRACTURE Right 04/2017 TONSILLECTOMY & ADENOIDECTOMY AGE 11/> also took uvula ALLERGIES Bees, Cats, Clindamycin, Dogs, Dust, Dust Mites, Latex, Lyrica [Pregabalin], Mold, and Vancomycin MEDICATIONS liothyronine (CYTOMEL) 25 mcg tablet^Take 1 tablet by mouth once daily.^Disp: 90 tablet^Rfl: 0 montelukast (SINGULAIR) 10 mg tablet^Take 1 tablet by mouth daily at bedtime.^Disp: 30 tablet^Rfl: 11 armodafinil (NUVIGIL) 150 mg tab^Take 1 tablet by mouth twice daily for 90 days.^Disp: 60 tablet^Rfl: 2 levothyroxine (LEVOXYL) 100 mcg tablet^Take 1 tablet by mouth once daily. Except none on Wednesday^Disp: 30 tablet^Rfl: 3 baclofen (LIORESAL) 10 mg tablet^TAKE 1 TABLET BY MOUTH THREE TIMES DAILY NEEDED FOR MUSCLE SPASM. DO NOT USE WITH FLEXERIL^Disp: 90 tablet^Rfl: 1 EPINEPHrine (EPIPEN) 0.3 mg/0.3 mL auto-injector^Use as directed^Disp: 2 Each^Rfl: 1 SITagliptin-metFORMIN (JANUMET) 50-500 mg per tablet^Take 1 tablet by mouth once daily.^Disp: 30 tablet^Rfl: 11 blood sugar diagnostic (BLOOD GLUCOSE TEST) test strip^Test blood sugar(s) 1 times daily. Dx: Type 2 DM - Uncontrolled E11.65 Insulin: No^Disp: 100 Strip^Rfl: 3 Lancets lancets^Test blood sugar(s) 1 times daily. Dx: Type 2 DM - Uncontrolled E11.65 Insulin: No^Disp: 100 Each^Rfl: 3 Blood-Glucose Meter^1 Each as directed.^Disp: 1 Each^Rfl: 0 Blood-Glucose Meter^Use as directed^Disp: 1 Each^Rfl: 0 levocetirizine 5 mg tablet^Take 1 tablet by mouth once daily.^Disp: 90 tablet^Rfl: 1 ibuprofen (MOTRIN) 200 mg tablet^Take 200 mg by mouth every 6 hours as needed.^Disp: ^Rfl: cephALEXin (KEFLEX) 500 mg capsule^Take 1 capsule by mouth twice daily for 7 days.^Disp: 14 capsule^Rfl: 0 FAMILY HISTORY Problem Relation Age of Onset other (endometriosis) Mother hysterectomy Cancer Father skin Seizures Father Stroke Father other (parkinson's disease) Father Alzheimer's Disease Father Seizures Brother Breast Cancer Maternal Grandmother Cervical Cancer Maternal Grandmother Social History Tobacco Use Smoking status: Former Packs/day: 0.10 Years: 9.00 Additional pack years: 0.00 Total pack years: 0.90 Types: Cigarettes Quit date: 10/28/1989 Years since quittin.2 Smokeless tobacco: Never Vaping Use Vaping Use: Never used Substance Use Topics Alcohol use: Yes Comment: 6-10 times a year Drug use: No Review of Systems Constitutional: Negative for chills, fatigue and fever. Eyes: Negative for pain, discharge and itching. Cardiovascular: Negative for chest pain, palpitations and leg swelling. Gastrointestinal: Negative for abdominal pain, diarrhea, nausea and vomiting. Genitourinary: Positive for dysuria, frequency and urgency. Negative for flank pain, hematuria and hesitancy. Musculoskeletal: Negative for back pain. Skin: Negative for color change, pallor, rash and wound. Allergic/Immunologic: Positive for environmental allergies and food allergies. Negative for immunocompromised state. Neurological: Negative for dizziness, seizures, facial asymmetry, light-headedness, numbness and headaches. Hematological: Negative for adenopathy. Does not bruise/bleed easily. Psychiatric/Behavioral: Negative for agitation and behavioral problems. Objective LMP 07/23/2016 (Exact Date) BP 120/72 Pulse 110 Temp 36.4 C (97.6 F) Resp 16 Wt 95.3 kg (210 lb) LMP 07/23/2016 (Exact Date) SpO2 97% BMI 31.93 kg/m Physical Exam Vitals and nursing note reviewed. Constitutional: General: She is not in acute distress. Appearance: Normal appearance. She is normal weight. She is not ill-appearing, toxic-appearing or diaphoretic. HENT: Head: Normocephalic and atraumatic. Right Ear: Ear canal and external ear normal. Left Ear: Ear canal and external ear normal. Nose: Nose normal. No congestion or rhinorrhea. Mouth/Throat: Mouth: Mucous membranes are moist. Pharynx: No oropharyngeal exudate or posterior oropharyngeal erythema. Eyes: General: Right eye: No discharge. Left eye: No discharge. Extraocular Movements: Extraocular movements intact. Conjunctiva/sclera: Conjunctivae normal. Pupils: Pupils are equal, round, and reactive to light. Cardiovascular: Rate and Rhythm: Normal rate and regular rhythm. Pulses: Normal pulses. Heart sounds: Normal heart sounds. No murmur heard. No friction rub. Pulmonary: Effort: Pulmonary effort is normal. No respiratory distress. Breath sounds: Normal breath sounds. No stridor. No wheezing, rhonchi or rales. Chest: Chest wall: No tenderness. Abdominal: General: Abdomen is flat. There is no distension. Palpations: Abdomen is soft. There is no mass. Tenderness: There is no abdominal tenderness. There is no right CVA tenderness, left CVA tenderness, guarding or rebound. Hernia: No hernia is present. Musculoskeletal: Cervical back: Normal range of motion and neck supple. No rigidity. Lymphadenopathy: Cervical: No cervical adenopathy. Skin: General: Skin is warm and dry. Coloration: Skin is not jaundiced or pale. Findings: No bruising, erythema, lesion or rash. Neurological: General: No focal deficit present. Mental Status: She is alert and oriented to person, place, and time. Cranial Nerves: No cranial nerve deficit. Sensory: No sensory deficit. Motor: No weakness. Coordination: Coordination normal. Gait: Gait normal. Psychiatric: Mood and Affect: Mood normal. Behavior: Behavior normal. Thought Content: Thought content normal. Judgment: Judgment normal. Assessment and Plan ASSESSMENT/PLAN: 1. Dysuria - ICD9: 788.1, ICD10: R30.0 acute - UA positive for vandana esterase, hematuria, and proteinuria - Send urine for culture - Begin treatment with Keflex - Patient education for prevention given - UA DIP, URINE (POC) - URINE CULTURE Nichole Matos APRN.PRELOAD SUPERVISOR documented in this encounter [facility] 12-21-2022 Miscellaneous Notes Patient has been identified by name and date of : Yes Requested Prescriptions Pending Prescriptions Disp Refills liothyronine (CYTOMEL) 25 mcg tablet 90 tablet 0 Sig: Take 1 tablet by mouth once daily. RX INSTRUCTIONS: Patient aware RX will be sent to pharmacy. No need to notify patient. Vishnu Montes De Oca LPN documented in this encounter [facility] 09-25-2022 Miscellaneous Notes Patient returned call and went over notes and scheduled appt for 09/29/2022, at 340 pm with Freddie RUBIO. Left message for patient to call office. Needs a pre-op visit. [facility]. (Can use a 40 min hospital follow up spot) documented in this encounter [facility] 09-14-2022 Miscellaneous Notes Patient has been identified by name and date of : Yes Requested Prescriptions Pending Prescriptions Disp Refills liothyronine (CYTOMEL) 25 mcg tablet 90 tablet 0 Sig: Take 1 tablet by mouth once daily. levothyroxine (LEVOXYL) 100 mcg tablet 30 tablet 3 Sig: Take 1 tablet by mouth once daily. Except none on Wednesday RX INSTRUCTIONS: Patient aware RX will be sent to pharmacy. No need to notify patient. Patient last office visit: 06/08/22 Patient next office visit: none scheduled Harriet Vargas MA documented in this encounter [facility] 08-05-2022 Miscellaneous Notes Pt notified. She states this will have to wait d/t she is dealing with some health issues with her mother. She is aware that orders are in for her to complete at her earliest convenience. Jose De Jesus Lopez LPN [employer] message sent to pt notifying her to contact office and speak with Triage Nurse. Relay information below if pt returns call. Charissa Ballesteros Ma Left message to return call to office. Jose De Jesus Lopez LPN Left message to call and speak with nurse. If there is doubt, I would recommend repeating repeat at least an IFOBT with 3 days on soft bland diet without red meat and nothing with residue that could scrape GI lining. Please have her complete current lab orders with CBC to make sure no anemia. Thanks, Freddie Bustos PA-C Patient was notified and advised she does not believe her stool test positive. When asked all questions only ones positive are few weeks ago had constipation that caused fissures. And takes Ibuprofen 600 mg BID daily. When discussing ibuprofen she refuses to stop since only thing that helps with chronic pain will not switch to tylenol since not effective. Patient declines seeing general surgery aware or risk of stool +.... still declines and does not care to schedule Sharyn Hurt Ma Heme + Stool: Any change in color of stool or visible blood? Any heartburn? Acid reflux? Abdominal pain? Active hemorrhoids, pain in the rectum, Blood on wiping or with stools? Change in stool pattern? Use of any OTC analgesics like Ibuprofen or Aleve? Any other OTC supplements? Please complete outstanding lab Heme + stool (primary encounter diagnosis) Positive colorectal cancer screening using cologuard test .[id number] documented in this encounter [facility] 07-27-2022 Miscellaneous Notes Patient phones requesting refills as follows: Requested Prescriptions Pending Prescriptions Disp Refills EPINEPHrine (EPIPEN) 0.3 mg/0.3 mL auto-injector 2 Each 1 Sig: Use as directed Please review and advise. Jose De Jesus Lopez LPN documented in this encounter [facility] 07-20-2022 Miscellaneous Notes Patient has been identified by name and date of : Yes Requested Prescriptions Pending Prescriptions Disp Refills SITagliptin-metFORMIN (JANUMET) 50-500 mg per tablet 30 tablet 11 Sig: Take 1 tablet by mouth once daily. RX INSTRUCTIONS: Patient aware RX will be sent to pharmacy. No need to notify patient. SIMBA 12/02/21 NOV none scheduled Harriet Vargas MA documented in this encounter [facility] 06-17-2022 Instructions Estefanía Schmidt APRN.CNP - 06/17/2022 2:31 PM EST documented in this encounter [facility] 06-17-2022 History of Presen t illness Narrative Commercial Loan Administrator offered: Patient declines. Phylicia is a 56 year old who presents for an annual gynecologic exam without complaints. Chronic anterior foot ulcer that is healing. T2DM well-controlled. Postmenopausal: Yes since age 52 HRT use: No. Last Pap: 06/26/2014 normal HPV: 06/18/2014 negative History of abnormal pap: Yes Last mammogram: 2021 normal History of abnormal mammogram: Yes age 26, colposcopy benign Sexually active: No Hot flashes: No, occasional Night sweats: No 1/day Vaginal dryness: No OB History T1 L1 SAB0 IAB0 Ectopic0 Multiple0 Live Births1 Demo Coordinator History LMP: 07/23/2016 (Exact Date), Postmenopausal Age at Menarche: Age at First : Age at Menopause: Demo Coordinator History Comments: Sexual Activity: Not Currently; Male Contraception: No contraception data on record 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 PICC LINE INSERT/CONSULT 01/27/2013 REPAIR OF ANKLE FRACTURE Right 04/2017 TONSILLECTOMY & ADENOIDECTOMY AGE 11/> also took uvula FAMILY HISTORY Problem Relation Age of Onset Cancer Father skin Seizures Father Stroke Father other (parkinson's disease) Father Seizures Brother Breast Cancer Maternal Grandmother Cervical Cancer Maternal Grandmother SOCIAL HISTORY Social History Tobacco Use Smoking status: Former Packs/day: 0.10 Years: 9.00 Pack years: 0.90 Types: Cigarettes Quit date: 10/28/1989 Years since quittin.6 Smokeless tobacco: Never Vaping Use Vaping Use: Never used Substance Use Topics Alcohol use: Yes Comment: 6-10 times a year Drug use: No REVIEW OF SYSTEMS Abdomen: No abdominal pain, nausea, vomiting, diarrhea, or constipation. No bloating, early satiety, indigestion, or increased flatulence. Bladder: No dysuria, gross hematuria, urinary frequency, urinary urgency, or incontinence Breast: No breast lumps, nipple d/c, overlying skin changes, redness or skin retraction Allergies and current medication updated:Yes EXAM: BP 114/70 Ht 5' 8 (1.73m) Wt 174 lb (78.9kg) LMP 07/23/2016 BMI 26.46 kg/(m^2). GENERAL: pleasant, female in no apparent distress HEENT: Normocephalic, atraumatic, mucus membranes moist, and no lesions NECK: Supple, full range of motion, no adenopathy, and thyroid normal DERMATOLOGY: Normal, without lesions, non-icteric, and non-hirsute BREAST: soft, non-tender, symmetric, no dominant mass, normal nipple-areolar complex, no lymphadenopathy, and no nipple discharge CHEST: Normal inspiratory effort ABDOMEN: soft, non-tender, and no masses PELVIC: external genitalia normal, normal Bartholin's glands, urethra, Millard's glands, no vulvar lesions, no cervical lesions, physiologic discharge present, normal appearing perineal body and perianal region. Vaginal atrophy. BIMANUAL: uterus normal size, shape and consistency, no adnexal masses, and non-tender RECTOVAGINAL: deferred. NEURO: alert and oriented x3,exam grossly non-focal EXTREMITIES: normal ASSESSMENT/PLAN: 1) Health maintenance: Pap done with HPV. Mammogram ordered Mammogram up to date Nutrition, exercise and routine health maintenance exams reviewed. Calcium/Vitamin D supplementation information provided. Colon cancer screening: Cologuard kit at home 2) Follow up one year or sooner as needed Estefanía Schmidt APRN.EVI documented in this encounter [facility] 06-09-2022 Miscellaneous Notes Called PT LVM to call back and schedule with PRODUCTION SOUND MIXER. Adenike PSS Please set up with PRODUCTION SOUND MIXER. Dr Trujillo placed consult during virtual visit. documented in this encounter [facility] 04-03-2022 Miscellaneous Notes Completed and faxed back. Type of form: DWO Form received via fax When form is completed, Fax form to [phone] [facility] [employer] Form has been forwarded to Physician Desk: MONIKA Eric documented in this encounter [facility] 03-26-2022 Miscellaneous Notes Notified patient and verbalizes understanding. Culture pending but looks like possible uti. Cover with macrobid, rx sent. See urine result scanned into chart for patient. documented in this encounter [facility] 03-26-2022 Miscellaneous Notes Ann Marie calls to check on status of request for ua C&S and reports that patient is experiencing tingling with urination at this time. Notified Ann Marie orders were placed for patient to come in. Ann Marie reports she just needs a verbal order to collect urine and take to the hospital. Verbal order given for urinalysis, reflex microscopic and urine culture per written orders. Results to be faxed to provider's office. Hallie Gonzalez RN Ann Marie from [facility] calling asking for a urine order please. Patient urine is very dark colored and she had recent UTI, was hospitalized. Pending orders needs diagnosis. Please advise documented in this encounter [facility] 03-09-2022 Miscellaneous Notes Patient phones requesting refills as follows: Requested Prescriptions Pending Prescriptions Disp Refills liothyronine (CYTOMEL) 25 mcg tablet 90 tablet 3 Sig: Take 1 tablet by mouth once daily. SIMBA 12/02/21 NOV 04/10/22 Please review and advise. Jose De Jesus Lopez LPN documented in this encounter [facility] 02-17-2022 Miscellaneous Notes Pt notified. She verbalized understanding. Jose De Jesus Lopez LPN Can please let patient know that we received her lab results. It continues to show that she is getting too much medication. We went ahead and sent a lower dose (levothyroxine 100 mcg) to the pharmacy for her to start. Recheck labs in 6-8 weeks -- orders are in. Yris Kelley APRN.EVI documented in this encounter [facility] 02-04-2022 Miscellaneous Notes placed Ok to enter referral? documented in this encounter [facility] 01-27-2022 Miscellaneous Notes Last office visit: 12/02/21 F/u scheduled: 02/14/22 Siobhan France Ma documented in this encounter [facility] 01-27-2022 Miscellaneous Notes Received two homecare orders for patient from [facility]. Order # [id number] ([facility]) and order # [id number] (high school social science teacher appt). Orders placed on Papo's desk for review and signature. Needs faxed back to [phone]. Effie Ashraf documented in this encounter [facility] 01-10-2022 Miscellaneous Notes See orders for my chart documented in this encounter [facility] 12-12-2021 History of Presen t illness Narrative Radiology Service Progress Note PATIENT NAME: Phylicia Falk DATE OF SERVICE: December 12, 2021 TIME: 2:01 PM PATIENT IDENTITY VERIFICATION COMPLETED USING TWO (2) IDENTIFIERS: Name and Date of confirmed by patient verbally. FALL SCREENING: Has the patient had 2 falls in the last year or 1 fall with injury or currently using an Ambulatory Assistive Device (Walker, Cane, Wheelchair, Crutches, etc.)? No PATIENT GENDER DATA: Female. status: : No status: NO. PATIENT RELEVANT IMPLANT DATA REVIEWED: Not Applicable RADIOLOGY DEPARTMENT: CT; Exam(s) Completed: Brain PERIPHERAL IV DATA: Not applicable SIGNED BY: RT Sujata(R) December 12, 2021 2:01 PM documented in this encounter [facility] 12-02-2021 History of Presen t illness Narrative Patient presents with: Hospital Follow Up: 11/22/21 - 11/26/21 Fever, weakness, dizziness Mass: on forehead HPI: Patient presents today for office visit for follow up. HOSPITAL/ER FOLLOW UP: Reason for visit: hospital visit. Which facility: [facility] Date of visit: 11/22-11/26/21 Presented with fever and weakness. Diagnosed with a staph bacteremia. I don not have records at my disposal. Dr Paez, ID, saw her while in the hospital. Diagnosed with a uti. hospitalist questioned if the foot was a source of infection. Podiatry disagreed it was the foot. Did have an MRI. Was discharged with cellulitis in the skin that was infected but states her leg is fine. Has a picc in place. She is unsure what antibiotic they are using. She is to follow with ID in December which is when antibiotics are done. They are considering switching her to an oral antibiotic for a while. No other testing was done. She is feeling better. No current fever. Leg is healing well. No gi or gu complaints. Sugars are doing well. Last a1c was 6.3. Nurse is checking labs every Wednesday for ID. No chest pain or shortness of breath. MEDICATIONS: Current Outpatient Medications Medication Sig blood sugar diagnostic (BLOOD GLUCOSE TEST) test strip Test blood sugar(s) 1 times daily. Dx: Type 2 DM - Uncontrolled E11.65 Insulin: No Lancets lancets Test blood sugar(s) 1 times daily. Dx: Type 2 DM - Uncontrolled E11.65 Insulin: No Blood-Glucose Meter 1 Each as directed. Blood-Glucose Meter Use as directed montelukast (SINGULAIR) 10 mg tablet Take 1 tablet by mouth daily at bedtime. armodafinil (NUVIGIL) 150 mg tab Take 1 tablet by mouth twice daily for 90 days. SITagliptin-metFORMIN (JANUMET) 50-500 mg per tablet Take 1 tablet by mouth once daily. levocetirizine 5 mg tablet Take 1 tablet by mouth once daily. baclofen (LIORESAL) 10 mg tablet TAKE 1 TABLET BY MOUTH THREE TIMES DAILY NEEDED FOR MUSCLE SPASM. DO NOT USE WITH FLEXERIL EPINEPHrine (EPIPEN) 0.3 mg/0.3 mL auto-injector Use as directed ibuprofen (ADVIL) 200 mg tablet Take 200 mg by mouth every 6 hours as needed. levothyroxine (SYNTHROID) 125 mcg tablet Take 1 tablet by mouth once daily. Take on empty stomach. For Thyroid liothyronine (CYTOMEL) 25 mcg tablet Take 1 tablet by mouth once daily. No current facility-administered medications for this visit. ALLERGIES: ALLERGIES Allergen Reactions Bees Cats Clindamycin Hives Dogs Dust Dust Mites Latex Lyrica [Pregabalin] Swelling Mold Vancomycin Other: See Comments 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 PICC LINE INSERT/CONSULT 01/27/2013 REPAIR OF ANKLE FRACTURE Right 04/2017 TONSILLECTOMY & ADENOIDECTOMY AGE 11/> also took uvula FAMILY HISTORY Problem Relation Age of Onset Cancer Father skin Seizures Father Stroke Father other (parkinson's disease) Father Breast Cancer Maternal Grandmother Cervical Cancer Maternal Grandmother Seizures Brother Social History Tobacco Use Smoking status: Former Smoker Packs/day: 0.10 Years: 9.00 Pack years: 0.90 Quit date: 10/28/1989 Years since quittin.1 Smokeless tobacco: Never Used Substance Use Topics Alcohol use: Yes Comment: 6-10 times a year Drug use: No Reviewed current medications, allergies, past medical history, surgical history, family history and social history today. REVIEW OF SYSTEMS Noted a lump on skull of her left upper forehead. Had pain in the hospital that moved around the head and settled into it. No trauma. No neuro issues. No redness or warmth. Noted it in the hospital. Several people have noted it. She is unsure if growing. All other reviewed and negative other than HPI. VITALS: BP 116/68 Pulse 108 Temp 36.7 C (98.1 F) Resp 16 Wt 76.2 kg (168 lb) LMP 07/23/2016 (Exact Date) SpO2 98% BMI 25.54 kg/m Last 4 Encounter Wt Readings: Date: Wt: 12/02/2021 76.2 kg (168 lb) 10/08/2021 77.6 kg (171 lb) 01/13/2021 87.1 kg (192 lb) 11/07/2020 93.9 kg (207 lb) PHYSICAL EXAMINATION: General appearance: Well appearing, alert, in no acute distress, well-hydrated, well nourished. Skin: Skin color, texture, turgor normal, no suspicious rashes or lesions Head: Normocephalic, no masses, lesions, tenderness or abnormalities. Has small palpable mass on left forehead. Slightly tender. Fixed and not mobile. No redness or warmth. Lungs: Lungs clear to auscultation. No wheezing, rhonchi, rales Heart: RRR without murmur, gallop, or rubs. No ectopy Abdomen: Normal abdominal exam, Abdomen soft, non-tender. Bowel sounds normal. No masses, organomegaly Extremities: incision is healing well. No drainage. Or redness or warm. Musculoskeletal: No joint swelling, deformity, or tenderness Peripheral pulses: Normal Neuro: Negative. ASSESSMENT/PLAN: 1. Sepsis due to methicillin susceptible Staphylococcus aureus, unspecified whether acute organ dysfunction present (HCC) - ICD9: 038.11, 995.91, ICD10: A41.01 (primary diagnosis) - get hospital records. Keep next appt. Continue to follow with ID. 2. Cellulitis, unspecified cellulitis site - ICD9: 682.9, ICD10: L03.90 - as above. 3. Type 2 diabetes mellitus with complication, without long-term current use of insulin (HCC) - ICD9: 250.90, ICD10: E11.8 -continue to follow 4. Hypothyroidism, unspecified type - ICD9: 244.9, ICD10: E03.9 5. Scalp mass - ICD9: 782.2, ICD10: R22.0 - rule out neoplasm. Red flags for re-assessment reviewed with patient in detail. - CT BRAIN WO IVCON 6. Thunderclap headache - ICD9: 784.0, ICD10: G44.53 - CT BRAIN WO IVCON Cuong Trujillo Keep next ov documented in this encounter [facility] 11-28-2021 Miscellaneous Notes rx sent Patient reports she was recently hospitalized at [facility] for fever, weakness and dizziness and discharged on 11/26/21. Reports she has Staph infection and patient is currently taking antibiotics. Has PICC line. F/U appt made with Dr. Trujillo for 12/02/21. Patient calling to ask if diflucan can be ordered for her? She reports she is experiencing vaginal yeast infection symptoms due to antibiotic use. Uses [facility] pharmacy in [place]. Please advise. Thank you. documented in this encounter [facility] 11-28-2021 Miscellaneous Notes Patient contacted and given provider's message . Hosp F/U appt made with Dr. Trujillo for 12/02/21. Call next week with bp Ann Marie-nurse with [facility] calling to report start of nursing care for patient. Patient will be seen once a week for PICC dressing changes and lab draws for Infectious Disease. Ann Marie calls to also update Dr. Trujillo that patient's BP today was 88/64 and pulse was 98. Patient is asymptomatic. Ann Marie instructed patient to increase her fluid intake due to concern for possible mild dehydration. Ann Marie states patient is not on any BP medications. Patient reports last night her BP was 92/60 and she felt dizzy and sweaty but also did not check her blood sugar and patient is diabetic-patient to monitor blood sugars more closely. Please advise patient if needed, at [phone]. Thank you. documented in this encounter [facility] 11-13-2021 Miscellaneous Notes November 13, 2021 PID: [id number] Phylicia Falk [address], [place] [address] Dear Ms. Falk, We are pleased to inform you that the results of your recent breast imaging exam on 11/13/2021 are normal. Early detection of cancer is very important. We also understand recommendations regarding breast cancer screening are controversial. Please discuss with your primary care provider which strategy is best for you and whether a mammogram is right for you. Your imaging studies and report will be kept on file at [facility] as part of your permanent medical record and are available for your continuing care. Thank you for allowing us to help in meeting your health care needs. Sincerely, Dr. Roca Interpreting Radiologist [facility] (Normal over 40) documented in this encounter [facility] 11-13-2021 History of Presen t illness Narrative Radiology Service Progress Note PATIENT NAME: Phylicia Falk DATE OF SERVICE: November 13, 2021 TIME: 11:14 AM PATIENT IDENTITY VERIFICATION COMPLETED USING TWO (2) IDENTIFIERS: Name and Date of confirmed by patient verbally. FALL SCREENING: Has the patient had 2 falls in the last year or 1 fall with injury or currently using an Ambulatory Assistive Device (Walker, Cane, Wheelchair, Crutches, etc.)? No PATIENT GENDER DATA: Female. status: : No status: NO. PATIENT RELEVANT IMPLANT DATA REVIEWED: Not Applicable RADIOLOGY DEPARTMENT: Mammography PERIPHERAL IV DATA: Not applicable SIGNED BY: RT Dexter(R) November 13, 2021 11:14 AM documented in this encounter [facility] 10-23-2021 Miscellaneous Notes Patient was notified Sharyn Hurt Ma rx sent, let her know Tried to complete PA on test strips but since only on one diabetic medication (janumet) insurance will only cover once a day testing. If patient desires to check BID will have to pay out of pocket can use [facility] brand otc. Sharyn Hurt Ma Soco with [facility] called and states the pt's insurance allows pot to test once a day and will allow 100 test strips in a 90 day period. Pt is testing twice a day. PA needs to be done per Soco. PRIOR AUTHORIZATION Medication for Prior Authorization: test strips Other formulary meds available : NO Insurance Company: Medicaid Insurance Company phone number: [phone] Patient insurance ID number: [id number] Anahi Layton LPN documented in this encounter [facility] 10-22-2021 Miscellaneous Notes rx sent for meter and supplies Glucometer and strips sent to pharmacy in September. TC to pharmacy, andie /elly Mccallum, he states insurance is requiring PA for One Touch strips. Alessio advised to use generic rx for test strips. Advised Alessio that rx was sent as generic, but that there was a note to pharmacy to use One Touch Ultra 2. He states they would need a new generic rx for both meter and strips to get everything covered. Alessio also advised sending new generic rx for lancets as well. As for allergy medication- Alessio stated that pt is referring to levocetirizine 5mg. Alessio states that pt had different insurance when original rx was filled. Now new insurance is requesting PA for it. Phone # to call for PA is [phone] ID# [id number]. (Routed note to RAMIRO teran regarding PA for levocetirizine) documented in this encounter [facility] 10-10-2021 Miscellaneous Notes \ documented in this encounter [facility] 10-09-2021 Miscellaneous Notes Patient was notified Sharyn Hurt Ma Sugars little higher but still very good. Thyroid is over corrected. Decrease synthroid to 125 mcg a day. Recheck tsh in six weeks. documented in this encounter [facility] 10-08-2021 History of Presen t illness Narrative No chief complaint on file. HPI: Patient presents today for office visit for follow up from previous visit. Brings in pictures of her wounds. Is doing much better. Continues to see wound care. Emotionally wants to go home but does not want anything for it. Sugars have been ok They have to be increased to be to be in the chamber. As low as 74. Last a1c was great. She has cut out her carbs. Average sugar is 136. Hypothyroid:energy levels are good. Narcolepsy: has been on nuvigil for years Has seen sleep med in the past. Aware of risks for years. meds are working well. oarrs checked. No chest pain or shortness of breath. No swelling. See last hpi, copied and pasted: Admitted at [facility] for diabetic abscess and osteomyelitis of her her right foot. She was also told she had covid at onset as well. Had MRSA bactermia and tenosynoviits of the right leg. Required iv vanco. Had dka on arrival Is seeing wound care at [facility]. Doing hyperbaric 5 days a week. Sugars drop when she does that so they have to keep it slightly higher. Did have a pic line and was in ECF for iv antibiotics. Now at home. Not currently seeing podiatry. No longer seeing Dr. Rubio. vanco had been affecting her kidneys. Last labs in mid June. She was on insulin as well while in the alf but that has since been stopped due to hypoglycemia. Reviewed her meds. She is out of nuvigil. She does need refills. Sugars are averaging 126. Drops down to 80 at times. Discussed that DKA could mean the possibility of type I however it can be seen in type II particularly if worsened due to her infection and previous covid. She adamantly does not want to resume insulin. She does have a wound vac. Foot is healing well. Pain is stable. She is living with family. She has a rash on her buttocks since in ECF. No breakdown. Does not sound like a decubitus but is now improving. Itches. Advised her it needs looked at. She will ask wound care to look at it. She needs a letter for social security. She is unable to bear weight at least for the next six months per wound care. Will send letter. She is totally disabled for that periods. Component Latest Ref Rng & Units 07/28/2021 08/07/2021 WBC 3.70 - 11.00 k/uL 8.86 RBC 3.90 - 5.20 m/uL 3.66 (L) Hemoglobin 11.5 - 15.5 g/dL 10.8 (L) Hematocrit 36.0 - 46.0 % 34.9 (L) MCV 80.0 - 100.0 fL 95.4 MCH 26.0 - 34.0 pg 29.5 MCHC 30.5 - 36.0 g/dL 30.9 RDW-CV 11.5 - 15.0 % 14.9 Platelet Count 150 - 400 k/uL 394 MPV 9.0 - 12.7 fL 10.3 Neut% % 53.6 Abs Neut (ANC) 1.45 - 7.50 k/uL 4.75 Lymph% % 33.6 Abs Lymph 1.00 - 4.00 k/uL 2.98 Evangeline% % 5.8 Abs Evangeline <0.87 k/uL 0.51 Eosin% % 5.5 Abs Eosin <0.46 k/uL 0.49 (H) Baso% % 0.9 Abs Baso <0.11 k/uL 0.08 Immature Gran % % 0.6 IMMATURE GRANS (ABS) <0.10 k/uL 0.05 NRBC /100 WBC 0.0 Absolute nRBC <0.01 k/uL <0.01 DTYPE Auto Protein, Total 6.3 - 8.0 g/dL 7.2 Albumin 3.9 - 4.9 g/dL 3.9 Calcium 8.5 - 10.2 mg/dL 9.8 Bilirubin, Total 0.2 - 1.3 mg/dL <0.2 (L) Alkaline Phosphatase 34 - 123 U/L 105 AST 13 - 35 U/L 17 ALT 7 - 38 U/L 15 Glucose 74 - 99 mg/dL 119 (H) BUN 7 - 21 mg/dL 19 Creatinine 0.58 - 0.96 mg/dL 0.62 Sodium 136 - 144 mmol/L 140 Potassium 3.7 - 5.1 mmol/L 3.7 Chloride 97 - 105 mmol/L 105 CO2 22 - 30 mmol/L 23 Anion Gap 9 - 18 mmol/L 12 eGFR >=60 mL/min/1.73m 105 Color Yellow Kyara (A) Clarity Clear Cloudy (A) Glucose, Urine Negative Negative Bilirubin, Urine Negative Negative Ketones, Urine Negative Negative Specific Eldridge, Ur 1.005 - 1.030 1.018 Hemoglobin/Blood,Ur Negative Negative pH, Urine 5.0 - 8.0 5.0 Protein, Urine Negative Negative Urobilinogen Negative Negative Nitrites Negative Negative Leukest Negative Negative WBC, Urine 0-5 /HPF 0-5 /HPF RBC, Urine 0-3 /HPF 0-3 /HPF Epithelial Cells /HPF Few Cholesterol, Total <200 mg/dL 227 (H) Triglyceride <150 mg/dL 205 (H) HDL Cholesterol >39 mg/dL 35 (L) Non HDL Cholesterol <130 mg/dL 192 (H) Fasting Time hrs 0 VLDL Cholesterol <30 mg/dL 41 (H) TC:HDL Ratio <5.10 6.49 (H) LDL Cholesterol <100 mg/dL 151 (H) LDL:HDL Ratio <2.54 4.31 (H) Hemoglobin A1C 4.3 - 5.6 % 5.5 Estimated Average Glucose mg/dL 111 TSH 0.270 - 4.200 mIU/L 0.335 C-Peptide 0.81 - 3.85 ng/mL 3.80 Insulin 3.0 - 25.0 mU/L 14.0 MEDICATIONS: Current Outpatient Medications Medication Sig blood sugar diagnostic (BLOOD GLUCOSE TEST) test strip Test blood sugar(s) 2 times daily. Dx: Type 2 DM - Uncontrolled E11.65 Insulin: No. Has fluctuating sugars. armodafinil (NUVIGIL) 150 mg tab Take 1 tablet by mouth twice daily for 90 days. Lancets lancets Test blood sugar(s) 4 times daily. Dx: Type 2 DM - Uncontrolled E11.65 Insulin: No SITagliptin-metFORMIN (JANUMET) 50-500 mg per tablet Take 1 tablet by mouth once daily. levothyroxine (SYNTHROID) 137 mcg tablet Take 1 tablet by mouth once daily. liothyronine (CYTOMEL) 25 mcg tablet Take 1 tablet by mouth once daily. montelukast (SINGULAIR) 10 mg tablet Take 1 tablet by mouth daily at bedtime. levocetirizine 5 mg tablet Take 1 tablet by mouth once daily. baclofen (LIORESAL) 10 mg tablet TAKE 1 TABLET BY MOUTH THREE TIMES DAILY NEEDED FOR MUSCLE SPASM. DO NOT USE WITH FLEXERIL EPINEPHrine (EPIPEN) 0.3 mg/0.3 mL auto-injector Use as directed mupirocin (BACTROBAN) 2 % ointment Apply 1 application to affected area once daily. (Patient not taking: Reported on 11/07/2020 ) ibuprofen (ADVIL) 200 mg tablet Take 200 mg by mouth every 6 hours as needed. No current facility-administered medications for this visit. ALLERGIES: ALLERGIES Allergen Reactions Bees Cats Clindamycin Hives Dogs Dust Dust Mites Latex Lyrica [Pregabalin] Swelling Mold PAST MEDICAL HISTORY Diagnosis Date Allergic rhinitis Degeneration of intervertebral disc, site unspecified Diabetes mellitus type 2, controlled, without complications ([facility]) 08/12/2017 Muscle spasm Myalgia and myositis, unspecified Narcolepsy Other specified acquired hypothyroidism PAST SURGICAL HISTORY Procedure Laterality Date KNEE ARTHROSCOPY/SURGERY 2010 right knee PAST SURGICAL HISTORY OF right connected foot to leg PAST SURGICAL HISTORY OF 2 back surgeries PAST SURGICAL HISTORY OF left tumor on left foot not cancerous PICC LINE INSERT/CONSULT 01/27/2013 REMOVAL GALLBLADDER REMOVE TONSILS/ADENOIDS,11+ Y/O also took uvula REPAIR OF ANKLE FRACTURE Right 04/2017 FAMILY HISTORY Problem Relation Age of Onset Cancer Father skin Seizures Father Stroke Father other (parkinson's disease) Father Breast Cancer Maternal Grandmother Cervical Cancer Maternal Grandmother Seizures Brother Social History Tobacco Use Smoking status: Former Smoker Packs/day: 0.10 Years: 9.00 Pack years: 0.90 Quit date: 10/28/1989 Years since quittin.9 Smokeless tobacco: Never Used Substance Use Topics Alcohol use: Yes Comment: 6-10 times a year Drug use: No Reviewed current medications, allergies, past medical history, surgical history, family history and social history today. REVIEW OF SYSTEMS All other reviewed and negative other than HPI. HEALTH MAINTENANCE: Reviewed health maintenance issues today and recommended the following in detail. DILATED RETINAL EXAM -rec COLORECTAL CANCER SCREENING due on 07/02/2018-rec PAP TESTING -rec URINE ALBUMIN:CREATININE RATIO due on 10/25/2019 COVID-19 VACCINE(4 - Booster for Moderna series) due on 09/08/2021 MAMMOGRAM -recommended when ready VITALS: BP 92/58 Pulse 88 Wt 77.6 kg (171 lb) LMP 07/23/2016 (Exact Date) BMI 26.00 kg/m Last 4 Encounter Wt Readings: Date: Wt: 01/13/2021 87.1 kg (192 lb) 11/07/2020 93.9 kg (207 lb) 10/28/2020 92.5 kg (204 lb) 11/22/2019 99 kg (218 lb 3.2 oz) PHYSICAL EXAMINATION: General appearance: Well appearing, alert, in no acute distress, well-hydrated, well nourished., Wheelchair and nonweight bearing. Dressing on left foot Head: Normocephalic, no masses, lesions, tenderness or abnormalities Neck: Supple, no adenopathy; thyroid symmetric, normal size, no bruits Back: Normal exam Lungs: Lungs clear to auscultation. No wheezing, rhonchi, rales Heart: RRR without murmur, gallop, or rubs. No ectopy Abdomen: Normal abdominal exam, Abdomen soft, non-tender. Bowel sounds normal. No masses, organomegaly Extremities: No deformities, edema, skin discoloration, clubbing or cyanosis. Good capillary refill. Musculoskeletal: No joint swelling, deformity, or tenderness ASSESSMENT/PLAN: 1. Anemia, unspecified type - ICD9: 285.9, ICD10: D64.9 (primary diagnosis) - was significantly anemic post op and required blood products. Check where we are. - CBC + DIFF - IRON + TIBC - VITAMIN B12 BLOOD - FOLATE SERUM 2. Narcolepsy due to underlying condition without cataplexy - ICD9: 347.10, ICD10: G47.429 - continue meds. Back to sleep medicine if worsens. - ARMODAFINIL 150 MG TABLET 3. Type 2 diabetes mellitus with complication, without long-term current use of insulin (HCC) - ICD9: 250.90, ICD10: E11.8 Controlled. - Continue current medications - HGB A1C - ALBUMIN/CREAT RATIO RND UR 4. Hypothyroidism, unspecified type - ICD9: 244.9, ICD10: E03.9 - Instructed patient on importance of taking on an empty stomach either first thing in the morning or at bedtime. 5. Complex regional pain syndrome type 1 of lower extremity, unspecified laterality - ICD9: 337.22, ICD10: G90.529 - stable. 6. Open wound of ankle and foot - ICD9: 891.0, 892.0, ICD10: S91.009A, S91.309A - doing well. 7. Tenosynovitis - ICD9: 727.00, ICD10: M65.9 - as above. Cuong Trujillo RTO in three months and prn. documented in this encounter [facility] 09-22-2021 Miscellaneous Notes Patient is ok with twice daily testing. Let her know will only cover bid unless on insulin and make sure is ok with her. [facility] [place], reports insurance will only cover test strips 4 x's day, if patient takes insulin. If patient does not take insulin, will cover twice daily testing. Asking pcp to send new RX for twice daily or do PA on 4 x's day testing. documented in this encounter [facility] 01-08-2021 Note [facility] jasper Jha 03-15-2017 History of Past i llness Narrative Problem Noted Date Resolved Date Hyperglycemia 03/15/2017 04/17/2019 Overview: Seeing endo. Osman Postoperative CSF leak 01/24/2013 8 Nausea 12/26/2012 03/11/2018 Spinal headache 12/26/2012 03/11/2018 Spinal stenosis, lumbar region, with neurogenic claudication 12/06/2012 03/11/2018 Postlaminectomy syndrome, lumbar region 11/09/19 09 03/11/2018 Thoracic or lumbosacral neuritis or radiculitis, unspecified 11/08/2008 03/11/2018 Degeneration of lumbar or lumbosacral interverte bral disc 11/08/2008 03/11/2018 Lumbosacral spondylosis without myelopathy 11/0803/11/2018 Brachial neuritis or radiculitis NOS 11/08/2008 03/11/2018 Sprain of neck 11/08/2008 03/11/2018 Cervicalgia 11/08/2008 03/11/2018 Allergic rhinitis, cause unspecified 01/11/2007 03/11/2018 Sleep disorder 01/11/2007 03/11/2018 Cough 03/29/2006 03/11/2018 documented as of this encounter (statuses as of 09/22/2021) [facility] History of Past illness Narrative* Problem Noted Date Resolved Date Hyperglycemia 03/15/2017 04/17/2019 Overview: Seeing endo. Osman Postoperative CSF leak 01/24/2013 8 Nausea 12/26/2012 03/11/2018 Spinal headache 12/26/2012 03/11/2018 Spinal stenosis, lumbar region, with neurogenic claudication 12/06/2012 03/11/2018 Postlaminectomy syndrome, lumbar region 11/09/19 09 03/11/2018 Thoracic or lumbosacral neuritis or radiculitis, unspecified 11/08/2008 03/11/2018 Degeneration of lumbar or lumbosacral interverte bral disc 11/08/2008 03/11/2018 Lumbosacral spondylosis without myelopathy 11/0803/11/2018 Brachial neuritis or radiculitis NOS 11/08/2008 03/11/2018 Sprain of neck 11/08/2008 03/11/2018 Cervicalgia 11/08/2008 03/11/2018 Allergic rhinitis, cause unspecified 01/11/2007 03/11/2018 Sleep disorder 01/11/2007 03/11/2018 Cough 03/29/2006 03/11/2018 documented as of this encounter (statuses as of 10/08/2021) [facility] History of Past illness Narrative* Problem Noted Date Resolved Date Hyperglycemia 03/15/2017 04/17/2019 Overview: Seeing endo. Osman Postoperative CSF leak 01/24/2013 8 Nausea 12/26/2012 03/11/2018 Spinal headache 12/26/2012 03/11/2018 Spinal stenosis, lumbar region, with neurogenic claudication 12/06/2012 03/11/2018 Postlaminectomy syndrome, lumbar region 11/09/19 09 03/11/2018 Thoracic or lumbosacral neuritis or radiculitis, unspecified 11/08/2008 03/11/2018 Degeneration of lumbar or lumbosacral interverte bral disc 11/08/2008 03/11/2018 Lumbosacral spondylosis without myelopathy 11/0803/11/2018 Brachial neuritis or radiculitis NOS 11/08/2008 03/11/2018 Sprain of neck 11/08/2008 03/11/2018 Cervicalgia 11/08/2008 03/11/2018 Allergic rhinitis, cause unspecified 01/11/2007 03/11/2018 Sleep disorder 01/11/2007 03/11/2018 Cough 03/29/2006 03/11/2018 documented as of this encounter (statuses as of 10/09/2021) [facility] History of Past illness Narrative* Problem Noted Date Resolved Date Hyperglycemia 03/15/2017 04/17/2019 Overview: Seeing endo. Osman Postoperative CSF leak 01/24/2013 8 Nausea 12/26/2012 03/11/2018 Spinal headache 12/26/2012 03/11/2018 Spinal stenosis, lumbar region, with neurogenic claudication 12/06/2012 03/11/2018 Postlaminectomy syndrome, lumbar region 11/09/19 09 03/11/2018 Thoracic or lumbosacral neuritis or radiculitis, unspecified 11/08/2008 03/11/2018 Degeneration of lumbar or lumbosacral interverte bral disc 11/08/2008 03/11/2018 Lumbosacral spondylosis without myelopathy 11/0803/11/2018 Brachial neuritis or radiculitis NOS 11/08/2008 03/11/2018 Sprain of neck 11/08/2008 03/11/2018 Cervicalgia 11/08/2008 03/11/2018 Allergic rhinitis, cause unspecified 01/11/2007 03/11/2018 Sleep disorder 01/11/2007 03/11/2018 Cough 03/29/2006 03/11/2018 documented as of this encounter (statuses as of 10/10/2021) [facility] History of Past illness Narrative* Problem Noted Date Resolved Date Hyperglycemia 03/15/2017 04/17/2019 Overview: Seeing endo. Osman Postoperative CSF leak 01/24/2013 8 Nausea 12/26/2012 03/11/2018 Spinal headache 12/26/2012 03/11/2018 Spinal stenosis, lumbar region, with neurogenic claudication 12/06/2012 03/11/2018 Postlaminectomy syndrome, lumbar region 11/09/19 09 03/11/2018 Thoracic or lumbosacral neuritis or radiculitis, unspecified 11/08/2008 03/11/2018 Degeneration of lumbar or lumbosacral interverte bral disc 11/08/2008 03/11/2018 Lumbosacral spondylosis without myelopathy 11/0803/11/2018 Brachial neuritis or radiculitis NOS 11/08/2008 03/11/2018 Sprain of neck 11/08/2008 03/11/2018 Cervicalgia 11/08/2008 03/11/2018 Allergic rhinitis, cause unspecified 01/11/2007 03/11/2018 Sleep disorder 01/11/2007 03/11/2018 Cough 03/29/2006 03/11/2018 documented as of this encounter (statuses as of 10/13/2021) [facility] History of Past illness Narrative* Problem Noted Date Resolved Date Hyperglycemia 03/15/2017 04/17/2019 Overview: Seeing endo. Osman Postoperative CSF leak 01/24/2013 8 Nausea 12/26/2012 03/11/2018 Spinal headache 12/26/2012 03/11/2018 Spinal stenosis, lumbar region, with neurogenic claudication 12/06/2012 03/11/2018 Postlaminectomy syndrome, lumbar region 11/09/19 09 03/11/2018 Thoracic or lumbosacral neuritis or radiculitis, unspecified 11/08/2008 03/11/2018 Degeneration of lumbar or lumbosacral interverte bral disc 11/08/2008 03/11/2018 Lumbosacral spondylosis without myelopathy 11/0803/11/2018 Brachial neuritis or radiculitis NOS 11/08/2008 03/11/2018 Sprain of neck 11/08/2008 03/11/2018 Cervicalgia 11/08/2008 03/11/2018 Allergic rhinitis, cause unspecified 01/11/2007 03/11/2018 Sleep disorder 01/11/2007 03/11/2018 Cough 03/29/2006 03/11/2018 documented as of this encounter (statuses as of 10/22/2021) [facility] History of Past illness Narrative* Problem Noted Date Resolved Date Hyperglycemia 03/15/2017 04/17/2019 Overview: Seeing endo. Osman Postoperative CSF leak 01/24/2013 8 Nausea 12/26/2012 03/11/2018 Spinal headache 12/26/2012 03/11/2018 Spinal stenosis, lumbar region, with neurogenic claudication 12/06/2012 03/11/2018 Postlaminectomy syndrome, lumbar region 11/09/19 09 03/11/2018 Thoracic or lumbosacral neuritis or radiculitis, unspecified 11/08/2008 03/11/2018 Degeneration of lumbar or lumbosacral interverte bral disc 11/08/2008 03/11/2018 Lumbosacral spondylosis without myelopathy 11/0803/11/2018 Brachial neuritis or radiculitis NOS 11/08/2008 03/11/2018 Sprain of neck 11/08/2008 03/11/2018 Cervicalgia 11/08/2008 03/11/2018 Allergic rhinitis, cause unspecified 01/11/2007 03/11/2018 Sleep disorder 01/11/2007 03/11/2018 Cough 03/29/2006 03/11/2018 documented as of this encounter (statuses as of 10/23/2021) [facility] History of Past illness Narrative* Problem Noted Date Resolved Date Hyperglycemia 03/15/2017 04/17/2019 Overview: Seeing endo. Osman Postoperative CSF leak 01/24/2013 8 Nausea 12/26/2012 03/11/2018 Spinal headache 12/26/2012 03/11/2018 Spinal stenosis, lumbar region, with neurogenic claudication 12/06/2012 03/11/2018 Postlaminectomy syndrome, lumbar region 11/09/19 09 03/11/2018 Thoracic or lumbosacral neuritis or radiculitis, unspecified 11/08/2008 03/11/2018 Degeneration of lumbar or lumbosacral interverte bral disc 11/08/2008 03/11/2018 Lumbosacral spondylosis without myelopathy 11/0803/11/2018 Brachial neuritis or radiculitis NOS 11/08/2008 03/11/2018 Sprain of neck 11/08/2008 03/11/2018 Cervicalgia 11/08/2008 03/11/2018 Allergic rhinitis, cause unspecified 01/11/2007 03/11/2018 Sleep disorder 01/11/2007 03/11/2018 Cough 03/29/2006 03/11/2018 documented as of this encounter (statuses as of 11/14/2021) [facility] History of Past illness Narrative* Problem Noted Date Resolved Date Hyperglycemia 03/15/201704/17/2019 Overview: Seeing endo. Osman Postoperative CSF leak 01/24/2013 8 Nausea 12/26/2012 03/11/2018 Spinal headache 12/26/2012 03/11/2018 Spinal stenosis, lumbar region, with neurogenic claudication 12/06/2012 03/11/2018 Postlaminectomy syndrome, lumbar region 11/09/19 09 03/11/2018 Thoracic or lumbosacral neuritis or radiculitis, unspecified 11/08/2008 03/11/2018 Degeneration of lumbar or lumbosacral interverte bral disc 11/08/2008 03/11/2018 Lumbosacral spondylosis without myelopathy 11/0803/11/2018 Brachial neuritis or radiculitis NOS 11/08/2008 03/11/2018 Sprain of neck 11/08/2008 03/11/2018 Cervicalgia 11/08/2008 03/11/2018 Allergic rhinitis, cause unspecified 01/11/2007 03/11/2018 Sleep disorder 01/11/2007 03/11/2018 Cough 03/29/2006 03/11/2018 documented as of this encounter (statuses as of 11/15/2021) [facility] History of Past illness Narrative* Problem Noted Date Resolved Date Hyperglycemia 03/15/2017 04/17/2019 Overview: Seeing endo. Osman Postoperative CSF leak 01/24/2013 8 Nausea 12/26/2012 03/11/2018 Spinal headache 12/26/2012 03/11/2018 Spinal stenosis, lumbar region, with neurogenic claudication 12/06/2012 03/11/2018 Postlaminectomy syndrome, lumbar region 11/09/19 09 03/11/2018 Thoracic or lumbosacral neuritis or radiculitis, unspecified 11/08/2008 03/11/2018 Degeneration of lumbar or lumbosacral interverte bral disc 11/08/2008 03/11/2018 Lumbosacral spondylosis without myelopathy 11/0803/11/2018 Brachial neuritis or radiculitis NOS 11/08/2008 03/11/2018 Sprain of neck 11/08/2008 03/11/2018 Cervicalgia 11/08/2008 03/11/2018 Allergic rhinitis, cause unspecified 01/11/2007 03/11/2018 Sleep disorder 01/11/2007 03/11/2018 Cough 03/29/2006 03/11/2018 documented as of this encounter (statuses as of 11/17/2021) [facility] History of Past illness Narrative* Problem Noted Date Resolved Date Hyperglycemia 03/15/2017 04/17/2019 Overview: Seeing endo. Osman Postoperative CSF leak 01/24/2013 8 Nausea 12/26/2012 03/11/2018 Spinal headache 12/26/2012 03/11/2018 Spinal stenosis, lumbar region, with neurogenic claudication 12/06/2012 03/11/2018 Postlaminectomy syndrome, lumbar region 11/09/19 09 03/11/2018 Thoracic or lumbosacral neuritis or radiculitis, unspecified 11/08/2008 03/11/2018 Degeneration of lumbar or lumbosacral interverte bral disc 11/08/2008 03/11/2018 Lumbosacral spondylosis without myelopathy 11/0803/11/2018 Brachial neuritis or radiculitis NOS 11/08/2008 03/11/2018 Sprain of neck 11/08/2008 03/11/2018 Cervicalgia 11/08/2008 03/11/2018 Allergic rhinitis, cause unspecified 01/11/2007 03/11/2018 Sleep disorder 01/11/2007 03/11/2018 Cough 03/29/2006 03/11/2018 documented as of this encounter (statuses as of 11/28/2021) [facility] History of Past illness Narrative* Problem Noted Date Resolved Date Hyperglycemia 03/15/2017 04/17/2019 Overview: Seeing endo. Osman Postoperative CSF leak 01/24/2013 8 Nausea 12/26/2012 03/11/2018 Spinal headache 12/26/2012 03/11/2018 Spinal stenosis, lumbar region, with neurogenic claudication 12/06/2012 03/11/2018 Postlaminectomy syndrome, lumbar region 11/09/19 09 03/11/2018 Thoracic or lumbosacral neuritis or radiculitis, unspecified 11/08/2008 03/11/2018 Degeneration of lumbar or lumbosacral interverte bral disc 11/08/2008 03/11/2018 Lumbosacral spondylosis without myelopathy 11/0803/11/2018 Brachial neuritis or radiculitis NOS 11/08/2008 03/11/2018 Sprain of neck 11/08/2008 03/11/2018 Cervicalgia 11/08/2008 03/11/2018 Allergic rhinitis, cause unspecified 01/11/2007 03/11/2018 Sleep disorder 01/11/2007 03/11/2018 Cough 03/29/2006 03/11/2018 documented as of this encounter (statuses as of 12/02/2021) [facility] History of Past illness Narrative* Problem Noted Date Resolved Date Hyperglycemia 03/15/2017 04/17/2019 Overview: Seeing endo. Osman Postoperative CSF leak 01/24/2013 8 Nausea 12/26/2012 03/11/2018 Spinal headache 12/26/2012 03/11/2018 Spinal stenosis, lumbar region, with neurogenic claudication 12/06/2012 03/11/2018 Postlaminectomy syndrome, lumbar region 11/09/19 09 03/11/2018 Thoracic or lumbosacral neuritis or radiculitis, unspecified 11/08/2008 03/11/2018 Degeneration of lumbar or lumbosacral interverte bral disc 11/08/2008 03/11/2018 Lumbosacral spondylosis without myelopathy 11/0803/11/2018 Brachial neuritis or radiculitis NOS 11/08/2008 03/11/2018 Sprain of neck 11/08/2008 03/11/2018 Cervicalgia 11/08/2008 03/11/2018 Allergic rhinitis, cause unspecified 01/11/2007 03/11/2018 Sleep disorder 01/11/2007 03/11/2018 Cough 03/29/2006 03/11/2018 documented as of this encounter (statuses as of 12/13/2021) [facility] History of Past illness Narrative* Problem Noted Date Resolved Date Hyperglycemia 03/15/2017 04/17/2019 Overview: Seeing endo. Osman Postoperative CSF leak 01/24/2013 8 Nausea 12/26/2012 03/11/2018 Spinal headache 12/26/2012 03/11/2018 Spinal stenosis, lumbar region, with neurogenic claudication 12/06/2012 03/11/2018 Postlaminectomy syndrome, lumbar region 11/09/19 09 03/11/2018 Thoracic or lumbosacral neuritis or radiculitis, unspecified 11/08/2008 03/11/2018 Degeneration of lumbar or lumbosacral interverte bral disc 11/08/2008 03/11/2018 Lumbosacral spondylosis without myelopathy 11/0803/11/2018 Brachial neuritis or radiculitis NOS 11/08/2008 03/11/2018 Sprain of neck 11/08/2008 03/11/2018 Cervicalgia 11/08/2008 03/11/2018 Allergic rhinitis, cause unspecified 01/11/2007 03/11/2018 Sleep disorder 01/11/2007 03/11/2018 Cough 03/29/2006 03/11/2018 documented as of this encounter (statuses as of 01/10/2022) [facility] History of Past illness Narrative* Problem Noted Date Resolved Date Hyperglycemia 03/15/2017 04/17/2019 Overview: Seeing endo. Osman Postoperative CSF leak 01/24/2013 8 Nausea 12/26/2012 03/11/2018 Spinal headache 12/26/2012 03/11/2018 Spinal stenosis, lumbar region, with neurogenic claudication 12/06/2012 03/11/2018 Postlaminectomy syndrome, lumbar region 11/09/19 09 03/11/2018 Thoracic or lumbosacral neuritis or radiculitis, unspecified 11/08/2008 03/11/2018 Degeneration of lumbar or lumbosacral interverte bral disc 11/08/2008 03/11/2018 Lumbosacral spondylosis without myelopathy 11/0803/11/2018 Brachial neuritis or radiculitis NOS 11/08/2008 03/11/2018 Sprain of neck 11/08/2008 03/11/2018 Cervicalgia 11/08/2008 03/11/2018 Allergic rhinitis, cause unspecified 01/11/2007 03/11/2018 Sleep disorder 01/11/2007 03/11/2018 Cough 03/29/2006 03/11/2018 documented as of this encounter (statuses as of 01/27/2022) [facility] History of Past illness Narrative* Problem Noted Date Resolved Date Hyperglycemia 03/15/2017 04/17/2019 Overview: Seeing endo. Osman Postoperative CSF leak 01/24/2013 8 Nausea 12/26/2012 03/11/2018 Spinal headache 12/26/2012 03/11/2018 Spinal stenosis, lumbar region, with neurogenic claudication 12/06/2012 03/11/2018 Postlaminectomy syndrome, lumbar region 11/09/19 09 03/11/2018 Thoracic or lumbosacral neuritis or radiculitis, unspecified 11/08/2008 03/11/2018 Degeneration of lumbar or lumbosacral interverte bral disc 11/08/2008 03/11/2018 Lumbosacral spondylosis without myelopathy 11/0803/11/2018 Brachial neuritis or radiculitis NOS 11/08/2008 03/11/2018 Sprain of neck 11/08/2008 03/11/2018 Cervicalgia 11/08/2008 03/11/2018 Allergic rhinitis, cause unspecified 01/11/2007 03/11/2018 Sleep disorder 01/11/2007 03/11/2018 Cough 03/29/2006 03/11/2018 documented as of this encounter (statuses as of 01/27/2022) [facility] History of Past illness Narrative* Problem Noted Date Resolved Date Hyperglycemia 03/15/2017 04/17/2019 Overview: Seeing endo. Osman Postoperative CSF leak 01/24/2013 8 Nausea 12/26/2012 03/11/2018 Spinal headache 12/26/2012 03/11/2018 Spinal stenosis, lumbar region, with neurogenic claudication 12/06/2012 03/11/2018 Postlaminectomy syndrome, lumbar region 11/09/19 09 03/11/2018 Thoracic or lumbosacral neuritis or radiculitis, unspecified 11/08/2008 03/11/2018 Degeneration of lumbar or lumbosacral interverte bral disc 11/08/2008 03/11/2018 Lumbosacral spondylosis without myelopathy 11/0803/11/2018 Brachial neuritis or radiculitis NOS 11/08/2008 03/11/2018 Sprain of neck 11/08/2008 03/11/2018 Cervicalgia 11/08/2008 03/11/2018 Allergic rhinitis, cause unspecified 01/11/2007 03/11/2018 Sleep disorder 01/11/2007 03/11/2018 Cough 03/29/2006 03/11/2018 documented as of this encounter (statuses as of 02/04/2022) [facility] History of Past illness Narrative* Problem Noted Date Resolved Date Hyperglycemia 03/15/2017 04/17/2019 Overview: Seeing endo. Osman Postoperative CSF leak 01/24/2013 8 Nausea 12/26/2012 03/11/2018 Spinal headache 12/26/2012 03/11/2018 Spinal stenosis, lumbar region, with neurogenic claudication 12/06/2012 03/11/2018 Postlaminectomy syndrome, lumbar region 11/09/19 09 03/11/2018 Thoracic or lumbosacral neuritis or radiculitis, unspecified 11/08/2008 03/11/2018 Degeneration of lumbar or lumbosacral interverte bral disc 11/08/2008 03/11/2018 Lumbosacral spondylosis without myelopathy 11/0803/11/2018 Brachial neuritis or radiculitis NOS 11/08/2008 03/11/2018 Sprain of neck 11/08/2008 03/11/2018 Cervicalgia 11/08/2008 03/11/2018 Allergic rhinitis, cause unspecified 01/11/2007 03/11/2018 Sleep disorder 01/11/2007 03/11/2018 Cough 03/29/2006 03/11/2018 documented as of this encounter (statuses as of 02/17/2022) [facility] History of Past illness Narrative* Problem Noted Date Resolved Date Hyperglycemia 03/15/2017 04/17/2019 Overview: Seeing endo. Osman Postoperative CSF leak 01/24/2013 8 Nausea 12/26/2012 03/11/2018 Spinal headache 12/26/2012 03/11/2018 Spinal stenosis, lumbar region, with neurogenic claudication 12/06/2012 03/11/2018 Postlaminectomy syndrome, lumbar region 11/09/19 09 03/11/2018 Thoracic or lumbosacral neuritis or radiculitis, unspecified 11/08/2008 03/11/2018 Degeneration of lumbar or lumbosacral interverte bral disc 11/08/2008 03/11/2018 Lumbosacral spondylosis without myelopathy 11/0803/11/2018 Brachial neuritis or radiculitis NOS 11/08/2008 03/11/2018 Sprain of neck 11/08/2008 03/11/2018 Cervicalgia 11/08/2008 03/11/2018 Allergic rhinitis, cause unspecified 01/11/2007 03/11/2018 Sleep disorder 01/11/2007 03/11/2018 Cough 03/29/2006 03/11/2018 documented as of this encounter (statuses as of 03/10/2022) [facility] History of Past illness Narrative* Problem Noted Date Resolved Date Hyperglycemia 03/15/2017 04/17/2019 Overview: Seeing endo. Osman Postoperative CSF leak 01/24/2013 8 Nausea 12/26/2012 03/11/2018 Spinal headache 12/26/2012 03/11/2018 Spinal stenosis, lumbar region, with neurogenic claudication 12/06/2012 03/11/2018 Postlaminectomy syndrome, lumbar region 11/09/19 09 03/11/2018 Thoracic or lumbosacral neuritis or radiculitis, unspecified 11/08/2008 03/11/2018 Degeneration of lumbar or lumbosacral interverte bral disc 11/08/2008 03/11/2018 Lumbosacral spondylosis without myelopathy 11/0803/11/2018 Brachial neuritis or radiculitis NOS 11/08/2008 03/11/2018 Sprain of neck 11/08/2008 03/11/2018 Cervicalgia 11/08/2008 03/11/2018 Allergic rhinitis, cause unspecified 01/11/2007 03/11/2018 Sleep disorder 01/11/2007 03/11/2018 Cough 03/29/2006 03/11/2018 documented as of this encounter (statuses as of 03/26/2022) [facility] History of Past illness Narrative* Problem Noted Date Resolved Date Hyperglycemia 03/15/2017 04/17/2019 Overview: Seeing endo. Osman Postoperative CSF leak 01/24/2013 8 Nausea 12/26/2012 03/11/2018 Spinal headache 12/26/2012 03/11/2018 Spinal stenosis, lumbar region, with neurogenic claudication 12/06/2012 03/11/2018 Postlaminectomy syndrome, lumbar region 11/09/19 09 03/11/2018 Thoracic or lumbosacral neuritis or radiculitis, unspecified 11/08/2008 03/11/2018 Degeneration of lumbar or lumbosacral interverte bral disc 11/08/2008 03/11/2018 Lumbosacral spondylosis without myelopathy 11/0803/11/2018 Brachial neuritis or radiculitis NOS 11/08/2008 03/11/2018 Sprain of neck 11/08/2008 03/11/2018 Cervicalgia 11/08/2008 03/11/2018 Allergic rhinitis, cause unspecified 01/11/2007 03/11/2018 Sleep disorder 01/11/2007 03/11/2018 Cough 03/29/2006 03/11/2018 documented as of this encounter (statuses as of 04/03/2022) [facility] History of Past illness Narrative* Problem Noted Date Resolved Date Hyperglycemia 03/15/2017 04/17/2019 Overview: Seeing endo. Osman Postoperative CSF leak 01/24/2013 8 Nausea 12/26/2012 03/11/2018 Spinal headache 12/26/2012 03/11/2018 Spinal stenosis, lumbar region, with neurogenic claudication 12/06/2012 03/11/2018 Postlaminectomy syndrome, lumbar region 11/09/19 09 03/11/2018 Thoracic or lumbosacral neuritis or radiculitis, unspecified 11/08/2008 03/11/2018 Degeneration of lumbar or lumbosacral interverte bral disc 11/08/2008 03/11/2018 Lumbosacral spondylosis without myelopathy 11/0803/11/2018 Brachial neuritis or radiculitis NOS 11/08/2008 03/11/2018 Sprain of neck 11/08/2008 03/11/2018 Cervicalgia 11/08/2008 03/11/2018 Allergic rhinitis, cause unspecified 01/11/2007 03/11/2018 Sleep disorder 01/11/2007 03/11/2018 Cough 03/29/2006 03/11/2018 Other specified acquired hypothyroidism 06/08/2022 Muscle spasm 06/08/2022 documented as of this encounter (statuses as of 06/09/2022) [facility] History of Past illness Narrative* Problem Noted Date Resolved Date Hyperglycemia 03/15/2017 04/17/2019 Overview: Seeing endo. Osman Postoperative CSF leak 01/24/2013 8 Nausea 12/26/2012 03/11/2018 Spinal headache 12/26/2012 03/11/2018 Spinal stenosis, lumbar region, with neurogenic claudication 12/06/2012 03/11/2018 Postlaminectomy syndrome, lumbar region 11/09/19 09 03/11/2018 Thoracic or lumbosacral neuritis or radiculitis, unspecified 11/08/2008 03/11/2018 Degeneration of lumbar or lumbosacral interverte bral disc 11/08/2008 03/11/2018 Lumbosacral spondylosis without myelopathy 11/0803/11/2018 Brachial neuritis or radiculitis NOS 11/08/2008 03/11/2018 Sprain of neck 11/08/2008 03/11/2018 Cervicalgia 11/08/2008 03/11/2018 Allergic rhinitis, cause unspecified 01/11/2007 03/11/2018 Sleep disorder 01/11/2007 03/11/2018 Cough 03/29/2006 03/11/2018 Other specified acquired hypothyroidism 06/08/2022 Muscle spasm 06/08/2022 documented as of this encounter (statuses as of 06/17/2022) [facility] History of Past illness Narrative* Problem Noted Date Resolved Date Hyperglycemia 03/15/2017 04/17/2019 Overview: Seeing endo. Osman Postoperative CSF leak 01/24/2013 8 Nausea 12/26/2012 03/11/2018 Spinal headache 12/26/2012 03/11/2018 Spinal stenosis, lumbar region, with neurogenic claudication 12/06/2012 03/11/2018 Postlaminectomy syndrome, lumbar region 11/09/19 09 03/11/2018 Thoracic or lumbosacral neuritis or radiculitis, unspecified 11/08/2008 03/11/2018 Degeneration of lumbar or lumbosacral interverte bral disc 11/08/2008 03/11/2018 Lumbosacral spondylosis without myelopathy 11/0803/11/2018 Brachial neuritis or radiculitis NOS 11/08/2008 03/11/2018 Sprain of neck 11/08/2008 03/11/2018 Cervicalgia 11/08/2008 03/11/2018 Allergic rhinitis, cause unspecified 01/11/2007 03/11/2018 Sleep disorder 01/11/2007 03/11/2018 Cough 03/29/2006 03/11/2018 Other specified acquired hypothyroidism 06/08/2022 Muscle spasm 06/08/2022 documented as of this encounter (statuses as of 07/21/2022) [facility] History of Past illness Narrative* Problem Noted Date Resolved Date Hyperglycemia 03/15/2017 04/17/2019 Overview: Seeing endo. Osman Postoperative CSF leak 01/24/2013 8 Nausea 12/26/2012 03/11/2018 Spinal headache 12/26/2012 03/11/2018 Spinal stenosis, lumbar region, with neurogenic claudication 12/06/2012 03/11/2018 Postlaminectomy syndrome, lumbar region 11/09/19 09 03/11/2018 Thoracic or lumbosacral neuritis or radiculitis, unspecified 11/08/2008 03/11/2018 Degeneration of lumbar or lumbosacral interverte bral disc 11/08/2008 03/11/2018 Lumbosacral spondylosis without myelopathy 11/0803/11/2018 Brachial neuritis or radiculitis NOS 11/08/2008 03/11/2018 Sprain of neck 11/08/2008 03/11/2018 Cervicalgia 11/08/2008 03/11/2018 Allergic rhinitis, cause unspecified 01/11/2007 03/11/2018 Sleep disorder 01/11/2007 03/11/2018 Cough 03/29/2006 03/11/2018 Other specified acquired hypothyroidism 06/08/2022 Muscle spasm 06/08/2022 documented as of this encounter (statuses as of 07/27/2022) [facility] History of Past illness Narrative* Problem Noted Date Resolved Date Hyperglycemia 03/15/2017 04/17/2019 Overview: Seeing endo. Osman Postoperative CSF leak 01/24/2013 8 Nausea 12/26/2012 03/11/2018 Spinal headache 12/26/2012 03/11/2018 Spinal stenosis, lumbar region, with neurogenic claudication 12/06/2012 03/11/2018 Postlaminectomy syndrome, lumbar region 11/09/19 09 03/11/2018 Thoracic or lumbosacral neuritis or radiculitis, unspecified 11/08/2008 03/11/2018 Degeneration of lumbar or lumbosacral interverte bral disc 11/08/2008 03/11/2018 Lumbosacral spondylosis without myelopathy 11/0803/11/2018 Brachial neuritis or radiculitis NOS 11/08/2008 03/11/2018 Sprain of neck 11/08/2008 03/11/2018 Cervicalgia 11/08/2008 03/11/2018 Allergic rhinitis, cause unspecified 01/11/2007 03/11/2018 Sleep disorder 01/11/2007 03/11/2018 Cough 03/29/2006 03/11/2018 Other specified acquired hypothyroidism 06/08/2022 Muscle spasm 06/08/2022 documented as of this encounter (statuses as of 07/28/2022) [facility] History of Past illness Narrative* Problem Noted Date Resolved Date Hyperglycemia 03/15/2017 04/17/2019 Overview: Seeing endo. Osman Postoperative CSF leak 01/24/2013 8 Nausea 12/26/2012 03/11/2018 Spinal headache 12/26/2012 03/11/2018 Spinal stenosis, lumbar region, with neurogenic claudication 12/06/2012 03/11/2018 Postlaminectomy syndrome, lumbar region 11/09/19 09 03/11/2018 Thoracic or lumbosacral neuritis or radiculitis, unspecified 11/08/2008 03/11/2018 Degeneration of lumbar or lumbosacral interverte bral disc 11/08/2008 03/11/2018 Lumbosacral spondylosis without myelopathy 11/0803/11/2018 Brachial neuritis or radiculitis NOS 11/08/2008 03/11/2018 Sprain of neck 11/08/2008 03/11/2018 Cervicalgia 11/08/2008 03/11/2018 Allergic rhinitis, cause unspecified 01/11/2007 03/11/2018 Sleep disorder 01/11/2007 03/11/2018 Cough 03/29/2006 03/11/2018 Other specified acquired hypothyroidism 06/08/2022 Muscle spasm 06/08/2022 documented as of this encounter (statuses as of 08/05/2022) [facility] History of Past illness Narrative* Problem Noted Date Resolved Date Hyperglycemia 03/15/2017 04/17/2019 Overview: Seeing endo. Osman Postoperative CSF leak 01/24/2013 8 Nausea 12/26/2012 03/11/2018 Spinal headache 12/26/2012 03/11/2018 Spinal stenosis, lumbar region, with neurogenic claudication 12/06/2012 03/11/2018 Postlaminectomy syndrome, lumbar region 11/09/19 09 03/11/2018 Thoracic or lumbosacral neuritis or radiculitis, unspecified 11/08/2008 03/11/2018 Degeneration of lumbar or lumbosacral interverte bral disc 11/08/2008 03/11/2018 Lumbosacral spondylosis without myelopathy 11/0803/11/2018 Brachial neuritis or radiculitis NOS 11/08/2008 03/11/2018 Sprain of neck 11/08/2008 03/11/2018 Cervicalgia 11/08/2008 03/11/2018 Allergic rhinitis, cause unspecified 01/11/2007 03/11/2018 Sleep disorder 01/11/2007 03/11/2018 Cough 03/29/2006 03/11/2018 Other specified acquired hypothyroidism 06/08/2022 Muscle spasm 06/08/2022 documented as of this encounter (statuses as of 09/14/2022) [facility] History of Past illness Narrative* Problem Noted Date Resolved Date Hyperglycemia 03/15/2017 04/17/2019 Overview: Seeing endo. Osman Postoperative CSF leak 01/24/2013 8 Nausea 12/26/2012 03/11/2018 Spinal headache 12/26/2012 03/11/2018 Spinal stenosis, lumbar region, with neurogenic claudication 12/06/2012 03/11/2018 Postlaminectomy syndrome, lumbar region 11/09/19 09 03/11/2018 Thoracic or lumbosacral neuritis or radiculitis, unspecified 11/08/2008 03/11/2018 Degeneration of lumbar or lumbosacral interverte bral disc 11/08/2008 03/11/2018 Lumbosacral spondylosis without myelopathy 11/0803/11/2018 Brachial neuritis or radiculitis NOS 11/08/2008 03/11/2018 Sprain of neck 11/08/2008 03/11/2018 Cervicalgia 11/08/2008 03/11/2018 Allergic rhinitis, cause unspecified 01/11/2007 03/11/2018 Sleep disorder 01/11/2007 03/11/2018 Cough 03/29/2006 03/11/2018 Other specified acquired hypothyroidism 06/08/2022 Muscle spasm 06/08/2022 documented as of this encounter (statuses as of 09/25/2022) [facility] History of Past illness Narrative* Problem Noted Date Diagnosed Date Resolved Date Hyperglycemia 03/15/2017 04/17/2019 Overview: Seeing endo. Osman Postoperative CSF leak 01/24/201303/11 Nausea 12/26/2012 03/11/2018 Spinal headache 12/26/2012 03/11/2018 Spinal stenosis, lumbar tera on, with neurogenic claudication 12/06/2012 03/11/2018 Postlaminectomy syndrome, lumbar region 11/08/2008 03/11/2018 Thoracic or lumbosacral neur itis or radiculitis, unspecified 11/08/2008 03/11/2018 Degeneration of lumbar or vanessa mbosacral intervertebral disc 11/08/2008 03/11/2018 Lumbosacral spondylosis without myelopathy 11/08/2008 03/11/2018 Brachial neuritis or radiculitis NOS 11/08/2008 03/11/2018 Sprain of neck 11/08/2008 03/11/2018 Cervicalgia 11/08/2008 03/11/2018 Allergic rhinitis, cause unspecified 01/11/2007 03/11/2018 Sleep disorder 01/11/2007 03/11/2018 Cough 03/29/2006 03/11/2018 Other specified acquired hypothyroidism 06/08/2022 Muscle spasm 06/08/2022 documented as of this encounter (statuses as of 12/21/2022) [facility] History of Past illness Narrative* Problem Noted Date Diagnosed Date Resolved Date Hyperglycemia 03/15/2017 04/17/2019 Overview: Seeing endo. Osman Postoperative CSF leak 01/24/201303/11 Nausea 12/26/2012 03/11/2018 Spinal headache 12/26/2012 03/11/2018 Spinal stenosis, lumbar tera on, with neurogenic claudication 12/06/2012 03/11/2018 Postlaminectomy syndrome, lumbar region 11/08/2008 03/11/2018 Thoracic or lumbosacral neur itis or radiculitis, unspecified 11/08/2008 03/11/2018 Degeneration of lumbar or vanessa mbosacral intervertebral disc 11/08/2008 03/11/2018 Lumbosacral spondylosis without myelopathy 11/08/2008 03/11/2018 Brachial neuritis or radiculitis NOS 11/08/2008 03/11/2018 Sprain of neck 11/08/2008 03/11/2018 Cervicalgia 11/08/2008 03/11/2018 Allergic rhinitis, cause unspecified 01/11/2007 03/11/2018 Sleep disorder 01/11/2007 03/11/2018 Cough 03/29/2006 03/11/2018 Other specified acquired hypothyroidism 06/08/2022 Muscle spasm 06/08/2022 documented as of this encounter (statuses as of 01/02/2023) [facility] History of Past illness Narrative* Problem Noted Date Diagnosed Date Resolved Date Hyperglycemia 03/15/2017 04/17/2019 Overview: Seeing endo. Osman Postoperative CSF leak 01/24/201303/11 Nausea 12/26/2012 03/11/2018 Spinal headache 12/26/2012 03/11/2018 Spinal stenosis, lumbar tera on, with neurogenic claudication 12/06/2012 03/11/2018 Postlaminectomy syndrome, lumbar region 11/08/2008 03/11/2018 Thoracic or lumbosacral neur itis or radiculitis, unspecified 11/08/2008 03/11/2018 Degeneration of lumbar or vanessa mbosacral intervertebral disc 11/08/2008 03/11/2018 Lumbosacral spondylosis without myelopathy 11/08/2008 03/11/2018 Brachial neuritis or radiculitis NOS 11/08/2008 03/11/2018 Sprain of neck 11/08/2008 03/11/2018 Cervicalgia 11/08/2008 03/11/2018 Allergic rhinitis, cause unspecified 01/11/2007 03/11/2018 Sleep disorder 01/11/2007 03/11/2018 Cough 03/29/2006 03/11/2018 Other specified acquired hypothyroidism 06/08/2022 Muscle spasm 06/08/2022 documented as of this encounter (statuses as of 02/23/2023) [facility] History of Past illness Narrative* Problem Noted Date Diagnosed Date Resolved Date Hyperglycemia 03/15/2017 04/17/2019 Overview: Seeing endo. Osman Postoperative CSF leak 01/24/201303/11 Nausea 12/26/2012 03/11/2018 Spinal headache 12/26/2012 03/11/2018 Spinal stenosis, lumbar tera on, with neurogenic claudication 12/06/2012 03/11/2018 Postlaminectomy syndrome, lumbar region 11/08/2008 03/11/2018 Thoracic or lumbosacral neur itis or radiculitis, unspecified 11/08/2008 03/11/2018 Degeneration of lumbar or vanessa mbosacral intervertebral disc 11/08/2008 03/11/2018 Lumbosacral spondylosis without myelopathy 11/08/2008 03/11/2018 Brachial neuritis or radiculitis NOS 11/08/2008 03/11/2018 Sprain of neck 11/08/2008 03/11/2018 Cervicalgia 11/08/2008 03/11/2018 Allergic rhinitis, cause unspecified 01/11/2007 03/11/2018 Sleep disorder 01/11/2007 03/11/2018 Cough 03/29/2006 03/11/2018 Other specified acquired hypothyroidism 06/08/2022 Muscle spasm 06/08/2022 documented as of this encounter (statuses as of 03/05/2023) [facility] History of Past illness Narrative* Problem Noted Date Diagnosed Date Resolved Date Hyperglycemia 03/15/2017 04/17/2019 Overview: Seeing endo. Osman Postoperative CSF leak 01/24/201303/11 Nausea 12/26/2012 03/11/2018 Spinal headache 12/26/2012 03/11/2018 Spinal stenosis, lumbar tera on, with neurogenic claudication 12/06/2012 03/11/2018 Postlaminectomy syndrome, lumbar region 11/08/2008 03/11/2018 Thoracic or lumbosacral neur itis or radiculitis, unspecified 11/08/2008 03/11/2018 Degeneration of lumbar or vanessa mbosacral intervertebral disc 11/08/2008 03/11/2018 Lumbosacral spondylosis without myelopathy 11/08/2008 03/11/2018 Brachial neuritis or radiculitis NOS 11/08/2008 03/11/2018 Sprain of neck 11/08/2008 03/11/2018 Cervicalgia 11/08/2008 03/11/2018 Allergic rhinitis, cause unspecified 01/11/2007 03/11/2018 Sleep disorder 01/11/2007 03/11/2018 Cough 03/29/2006 03/11/2018 Other specified acquired hypothyroidism 06/08/2022 Muscle spasm 06/08/2022 documented as of this encounter (statuses as of 03/31/2023) [facility] History of Past illness Narrative* Problem Noted Date Diagnosed Date Resolved Date Hyperglycemia 03/15/2017 04/17/2019 Overview: Seeing endo. Osman Postoperative CSF leak 01/24/201303/11 Nausea 12/26/2012 03/11/2018 Spinal headache 12/26/2012 03/11/2018 Spinal stenosis, lumbar tera on, with neurogenic claudication 12/06/2012 03/11/2018 Postlaminectomy syndrome, lumbar region 11/08/2008 03/11/2018 Thoracic or lumbosacral neur itis or radiculitis, unspecified 11/08/2008 03/11/2018 Degeneration of lumbar or vanessa mbosacral intervertebral disc 11/08/2008 03/11/2018 Lumbosacral spondylosis without myelopathy 11/08/2008 03/11/2018 Brachial neuritis or radiculitis NOS 11/08/2008 03/11/2018 Sprain of neck 11/08/2008 03/11/2018 Cervicalgia 11/08/2008 03/11/2018 Allergic rhinitis, cause unspecified 01/11/2007 03/11/2018 Sleep disorder 01/11/2007 03/11/2018 Cough 03/29/2006 03/11/2018 Other specified acquired hypothyroidism 06/08/2022 Muscle spasm 06/08/2022 documented as of this encounter (statuses as of 04/01/2023) [facility] History of Past illness Narrative* Problem Noted Date Diagnosed Date Resolved Date Hyperglycemia 03/15/2017 04/17/2019 Overview: Seeing endo. Osman Postoperative CSF leak 01/24/201303/11 Nausea 12/26/2012 03/11/2018 Spinal headache 12/26/2012 03/11/2018 Spinal stenosis, lumbar tera on, with neurogenic claudication 12/06/2012 03/11/2018 Postlaminectomy syndrome, lumbar region 11/08/2008 03/11/2018 Thoracic or lumbosacral neur itis or radiculitis, unspecified 11/08/2008 03/11/2018 Degeneration of lumbar or vanessa mbosacral intervertebral disc 11/08/2008 03/11/2018 Lumbosacral spondylosis without myelopathy 11/08/2008 03/11/2018 Brachial neuritis or radiculitis NOS 11/08/2008 03/11/2018 Sprain of neck 11/08/2008 03/11/2018 Cervicalgia 11/08/2008 03/11/2018 Allergic rhinitis, cause unspecified 01/11/2007 03/11/2018 Sleep disorder 01/11/2007 03/11/2018 Cough 03/29/2006 03/11/2018 Other specified acquired hypothyroidism 06/08/2022 Muscle spasm 06/08/2022 documented as of this encounter (statuses as of 04/13/2023) [facility] History of Past illness Narrative* Problem Noted Date Diagnosed Date Resolved Date Hyperglycemia 03/15/2017 04/17/2019 Overview: Seeing endo. Osman Postoperative CSF leak 01/24/201303/11 Nausea 12/26/2012 03/11/2018 Spinal headache 12/26/2012 03/11/2018 Spinal stenosis, lumbar tera on, with neurogenic claudication 12/06/2012 03/11/2018 Postlaminectomy syndrome, lumbar region 11/08/2008 03/11/2018 Thoracic or lumbosacral neur itis or radiculitis, unspecified 11/08/2008 03/11/2018 Degeneration of lumbar or vanessa mbosacral intervertebral disc 11/08/2008 03/11/2018 Lumbosacral spondylosis without myelopathy 11/08/2008 03/11/2018 Brachial neuritis or radiculitis NOS 11/08/2008 03/11/2018 Sprain of neck 11/08/2008 03/11/2018 Cervicalgia 11/08/2008 03/11/2018 Allergic rhinitis, cause unspecified 01/11/2007 03/11/2018 Sleep disorder 01/11/2007 03/11/2018 Cough 03/29/2006 03/11/2018 Other specified acquired hypothyroidism 06/08/2022 Muscle spasm 06/08/2022 documented as of this encounter (statuses as of 04/23/2023) [facility] History of Past illness Narrative* Problem Noted Date Diagnosed Date Resolved Date Hyperglycemia 03/15/2017 04/17/2019 Overview: Seeing endo. Osman Postoperative CSF leak 01/24/201303/11 Nausea 12/26/2012 03/11/2018 Spinal headache 12/26/2012 03/11/2018 Spinal stenosis, lumbar tera on, with neurogenic claudication 12/06/2012 03/11/2018 Postlaminectomy syndrome, lumbar region 11/08/2008 03/11/2018 Thoracic or lumbosacral neur itis or radiculitis, unspecified 11/08/2008 03/11/2018 Degeneration of lumbar or vanessa mbosacral intervertebral disc 11/08/2008 03/11/2018 Lumbosacral spondylosis without myelopathy 11/08/2008 03/11/2018 Brachial neuritis or radiculitis NOS 11/08/2008 03/11/2018 Sprain of neck 11/08/2008 03/11/2018 Cervicalgia 11/08/2008 03/11/2018 Allergic rhinitis, cause unspecified 01/11/2007 03/11/2018 Sleep disorder 01/11/2007 03/11/2018 Cough 03/29/2006 03/11/2018 Other specified acquired hypothyroidism 06/08/2022 Muscle spasm 06/08/2022 documented as of this encounter (statuses as of 04/26/2023) [facility] History of Past illness Narrative* Problem Noted Date Diagnosed Date Resolved Date Hyperglycemia 03/15/2017 04/17/2019 Overview: Seeing endo. Osman Postoperative CSF leak 01/24/201303/11 Nausea 12/26/2012 03/11/2018 Spinal headache 12/26/2012 03/11/2018 Spinal stenosis, lumbar trea on, with neurogenic claudication 12/06/2012 03/11/2018 Postlaminectomy syndrome, lumbar region 11/08/2008 03/11/2018 Thoracic or lumbosacral neur itis or radiculitis, unspecified 11/08/2008 03/11/2018 Degeneration of lumbar or vanessa mbosacral intervertebral disc 11/08/2008 03/11/2018 Lumbosacral spondylosis without myelopathy 11/08/2008 03/11/2018 Brachial neuritis or radiculitis NOS 11/08/2008 03/11/2018 Sprain of neck 11/08/2008 03/11/2018 Cervicalgia 11/08/2008 03/11/2018 Allergic rhinitis, cause unspecified 01/11/2007 03/11/2018 Sleep disorder 01/11/2007 03/11/2018 Cough 03/29/2006 03/11/2018 Other specified acquired hypothyroidism 06/08/2022 Muscle spasm 06/08/2022 documented as of this encounter (statuses as of 05/06/2023) [facility] History of Past illness Narrative* Problem Noted Date Diagnosed Date Resolved Date Hyperglycemia 03/15/2017 04/17/2019 Overview: Seeing endo. Osman Postoperative CSF leak 01/24/201303/11 Nausea 12/26/2012 03/11/2018 Spinal headache 12/26/2012 03/11/2018 Spinal stenosis, lumbar tera on, with neurogenic claudication 12/06/2012 03/11/2018 Postlaminectomy syndrome, lumbar region 11/08/2008 03/11/2018 Thoracic or lumbosacral neur itis or radiculitis, unspecified 11/08/2008 03/11/2018 Degeneration of lumbar or vanessa mbosacral intervertebral disc 11/08/2008 03/11/2018 Lumbosacral spondylosis without myelopathy 11/08/2008 03/11/2018 Brachial neuritis or radiculitis NOS 11/08/2008 03/11/2018 Sprain of neck 11/08/2008 03/11/2018 Cervicalgia 11/08/2008 03/11/2018 Allergic rhinitis, cause unspecified 01/11/2007 03/11/2018 Sleep disorder 01/11/2007 03/11/2018 Cough 03/29/2006 03/11/2018 Other specified acquired hypothyroidism 06/08/2022 Muscle spasm 06/08/2022 documented as of this encounter (statuses as of 07/16/2023) [facility]* Diagnosis Type 2 diabetes mellitus with complication, without long-term current use of insulin ([facility]) [facility] encounter [facility]* Diagnosis Anemia, unspecified type- Primary Narcolepsy due to underlying condition without cataplexy Type 2 diabetes mellitus with complication, without long-term current use of insulin (HCC) Hypothyroidism, unspecified type Complex regional pain syndrome type 1 of lower extremity, unspecified laterality Open wound of ankle and foot Tenosynovitis Synovitis and tenosynovitis, unspecified [facility]* Diagnosis Hypothyroidism, unspecified type [facility]* Diagnosis Type 2 diabetes mellitus with complication, without long-term current use of insulin (HCC)- Primary [facility]* Diagnosis Type 2 diabetes mellitus with complication, without long-term current use of insulin (HCC) [facility]* Diagnosis Type 2 diabetes mellitus with complication, without long-term current use of insulin (HCC) documented in this encounter [facility]* Diagnosis Type 2 diabetes mellitus with complication, without long-term current use of insulin (HCC) [facility]* Diagnosis Encounter for screening mammogram for breast cancer [facility]* Diagnosis Encounter for screening mammogram for breast cancer [facility]* Diagnosis Sepsis due to methicillin susceptible Staphylococcus aureus, unspecified whether acute organ dysfunction present (HCC)- Primary Cellulitis, unspecified cellulitis site Type 2 diabetes mellitus with complication, without long-term current use of insulin (HCC) Hypothyroidism, unspecified type Scalp mass Localized superficial swelling, mass, or lump Thunderclap headache Headache [facility]* Diagnosis Scalp mass Localized superficial swelling, mass, or lump Thunderclap headache Headache [facility]* Diagnosis Hypothyroidism, unspecified type- Primary documented in this encounter [facility]* Diagnosis Complex regional pain syndrome type 1 of lower extremity, unspecified laterality [facility]* Diagnosis Dizziness- Primary Dizziness and giddiness [facility]* Diagnosis Hypothyroidism, unspecified type [facility]* Diagnosis Dark urine- Primary Other nonspecific finding on examination of urine [facility]* Diagnosis Encounter for gynecological examination (general) (routine) without abnormal findings- Primary Encounter for screening for human papillomavirus (HPV) Special screening examination for human papillomavirus (HPV) Pap smear for cervical cancer screening Screening for malignant neoplasm of the cervix Encounter for screening mammogram for breast cancer [facility]* Diagnosis Bee sting allergy Allergy to insects and arachnids documented [facility]* Diagnosis Hypothyroidism, unspecified type [facility]* Diagnosis Heme + stool- Primary Nonspecific abnormal finding in stool contents Positive colorectal cancer screening using Cologuard test [facility]* Diagnosis Hypothyroidism, unspecified type documented in this encounter [facility]* Diagnosis Hypothyroidism, unspecified type documented in this encounter [facility]* Diagnosis Dysuria- Primary documented in this encounter [facility]* Diagnosis Type 2 diabetes mellitus with complication, without long-term current use of insulin (HCC)- Primary Narcolepsy due to underlying condition without cataplexy Medication management Encounter for long-term (current) use of other medications Bilateral carotid artery stenosis Occlusion and stenosis of carotid artery without mention of cerebral infarction Hypothyroidism, unspecified type Hyperlipidemia, mixed Mixed hyperlipidemia Encounter for immunization Need for other specified prophylactic vaccination against single bacterial disease Chronic ulcer of right foot due to diabetes mellitus (HCC) documented in this encounter [facility] note* Diagnosis Complex regional pain syndrome type 1 of lower extremity, unspecified laterality documented in this encounter [facility] note* Diagnosis Narcolepsy due to underlying condition without cataplexy Hypothyroidism, unspecified type documented in this encounter [facility] note* Diagnosis Complex regional pain syndrome type 1 of lower extremity, unspecified laterality Hypothyroidism, unspecified type documented in this encounter [facility] note* Diagnosis Type 2 diabetes mellitus with complication, without long-term current use of insulin (HCC)- Primary documented in this encounter [facility] note* Diagnosis Hypothyroidism, unspecified type Complex regional pain syndrome type 1 of lower extremity, unspecified laterality documented in this encounter [facility] note* Diagnosis Type 2 diabetes mellitus with complication, without long-term current use of insulin (HCC)- Primary Narcolepsy due to underlying condition without cataplexy Medication management Encounter for long-term (current) use of other medications Bilateral carotid artery stenosis Occlusion and stenosis of carotid artery without mention of cerebral infarction Hypothyroidism, unspecified type Hyperlipidemia, mixed Mixed hyperlipidemia Encounter for immunization Need for other specified prophylactic vaccination against single bacterial disease Chronic ulcer of right foot due to diabetes mellitus (HCC) Narcolepsy due to underlying condition without cataplexy documented in this encounter [facility] for referral (narrative)* Diagnostic Procedure Only (Routine) - Closed Specialty Diagnoses / Procedures Referred By Sofiya kruse Referred To Contact [facility] Diagnoses Encounter for screening mammogram for breast cancer Procedures [facility] SCREENING SCREENING MAMMOGRAPHY BI 2-VIEW BREAST INC CAD Cuong Trujillo MD [address] [place] [address] [facility] [address] [place] [address] Referral ID Status Reason Start Date Expiration Date V isits Requested Visits Authorized [id number] Closed Auto-Generate d Referral 11/12/2021 12/12/2022 1 1 [facility] for referral (narrative)* Diagnostic Procedure Only (Routine) - Closed Specialty Diagnoses / Procedures Referred By Contac t Referred To Contact [facility] Diagnoses Encounter for screening mammogram for breast cancer Procedures [facility] SCREENING SCREENING MAMMOGRAPHY BI 2-VIEW BREAST INC CAD Cuong Trujillo MD [address] [place] [address] [facility] [address] [place] [address] Referral ID Status Reason Start Date Expiration Date V isits Requested Visits Authorized [id number] Closed Auto-Generate d Referral 11/12/2021 12/12/2022 1 1 [facility] for referral (narrative)* Diagnostic Procedure Only (Routine) - Pending Review Specialty Diagnoses / Procedures Referred By Contac t Referred To Contact [facility] Diagnoses Encounter for screening mammogram for breast cancer Procedures BALTAZAR SCREENING SCREENING MAMMOGRAPHY BI 2-VIEW BREAST INC Estefanía Browning APRN.CNP [address] [place] [address] [facility] [address] [place] [address] Referral ID Status Reason Start Date Expiration Date Visits Requested Visits Authorized [id number] Pending Review Auto-Generat ed Referral 06/17/2022 07/17/2023 1 1 [facility] for referral (narrative)* Outpatient Procedure (Routine) - Pending Review Specialty Diagnoses / Procedures Referred By Contac t Referred To [facility] Diagnoses Bilateral carotid artery stenosis Procedures US CAROTID ARTERIES [facility] DUPLEX SCAN EXTRACRANIAL ART COMPL BI STUDY Yris Kelley APRN.CNP [address] [place] [address] [facility] [address] [place] [address] Referral ID Status Reason Start Date Expiration Date Visits Requested Visits Authorized [id number] Pending Review Auto-Generat ed Referral 3 04/12/2024 1 1 [facility] for visit Narrative* Diagnostic Procedure Only (Routine) - Closed Specialty Diagnoses / Procedures Referred By Sofiya kruse Referred To Contact [facility] Diagnoses Encounter for screening mammogram for breast cancer Procedures [facility] SCREENING SCREENING MAMMOGRAPHY BI 2-VIEW BREAST INC CAD Cuong Trujillo MD [address] [place] [address] [facility] [address] [place] [address] Referral ID Status Reason Start Date Expiration Date V isits Requested Visits Authorized [id number] Closed Auto-Generate d Referral 11/12/2021 12/12/2022 1 1 [facility] Summary Purpose Family History No Family History Records FoundNo Family History Records FoundNo Family History Records FoundNo Family History Records Found Advance Directives No Advanced Directives Records FoundDocuments on File Type Date Recorded Patient Home Health Clinical Supervisor Expl anation Advance Directive(s) Documents on File Type Date Recorded Patient Home Health Clinical Supervisor Expl anation Advance Directive(s) Reason for Referral Specialty Diagnoses / Procedures Referred By Sofiya kruse Referred To Contact CT [facility] Diagnoses Scalp mass Thunderclap headache Procedures CT BRAIN WO IVCON CT HEAD/BRAIN W/O CONTRAST MATERIAL Cuong Trujillo MD [address] [place] [address] Ct [facility] Referral ID Status Reason Start Date Expiration Date Visits Requested Visits Authorized [id number] Additional Clinical Info Needed Auto-Generat ed Referral 12/02/2021 01/01/2023 1 1 Referral ID Status Reason Start Date Expiration Date V isits Requested Visits Authorized [id number] Closed Auto-Generate d Referral 12/05/2021 01/03/2022 1 1 Specialty Diagnoses / Procedures Referred By Contac t Referred To Contact Ent - Otolaryngology Diagnoses Dizziness Procedures CONSULT TO ENT OFFICE/OUTPATIENT [facility] 60-74 MINUTES Cuong Trujillo MD [address] [place] [address] Referral ID Status Reason Start Date Expiration Date Visits Requested Visits Authorized [id number] Authorized PCP Requested Referral 02/04/2022 02/04/2023 1 1 Specialty Diagnoses / Procedures Referred By Contac t Referred To Contact General Surgery Diagnoses Heme + stool Procedures CONSULT TO GENERAL SURGERY OFFICE/OUTPATIENT [facility] 60-74 MINUTES Home Bustos PA-C [address] [place] [address] Referral ID Status Reason Start Date Expiration Date Visits Requested Visits Authorized [id number] Authorized PCP Requested Referral 07/08/2022 07/08/2023 1 1 Specialty Diagnoses / Procedures Referred By Contac t Referred To Contact Endocrinology Diagnoses Type 2 diabetes mellitus with complication, without long-term current use of insulin (HCC) Procedures CONSULT TO ENDOCRINOLOGY OFFICE/OUTPATIENT [facility] 60 MINUTES Yris Kelley APRN.CNP [address] [place] [address] Referral ID Status Reason Start Date Expiration Date Visits Requested Visits Authorized [id number] Authorized PCP Requested Referral 11/01/2023 10/31/2024 1 1 Additional Source Comments INFORMATION SOURCE (unrecogn ized section and content) DATE CREATED AUTHOR 06/26/2021 [facility] DATE CREATED AUTHOR AUTHOR'S ORGANIZ ATION 07/12/2021 [facility] DATE CREATED AUTHOR AUTHOR'S ORGANIZ ATION 07/31/2021 [facility] DATE CREATED AUTHOR AUTHOR'S ORGANIZ ATION 02/04/2024 [facility] Source Comments (unrecognize d section and content) In the event this informatio n is protected by the Federal Confidentiality of Alcohol and Drug Abuse Patient Records regulations: The Federal rules restrict any use of the information to criminally investigate or prosecute any alcohol or drug abuse patient.[facility] the event this information is protected by the Federal Confidentiality of Alcohol and Drug Abuse Patient Records regulations: The Federal rules restrict any use of the information to criminally investigate or prosecute any alcohol or drug abuse patient.[facility] the event this information is protected by the Federal Confidentiality of Alcohol and Drug Abuse Patient Records regulations: The Federal rules restrict any use of the information to criminally investigate or prosecute any alcohol or drug abuse patient.[facility] the event this information is protected by the Federal Confidentiality of Alcohol and Drug Abuse Patient Records regulations: The Federal rules restrict any use of the information to criminally investigate or prosecute any alcohol or drug abuse patient.[facility] the event this information is protected by the Federal Confidentiality of Alcohol and Drug Abuse Patient Records regulations: The Federal rules restrict any use of the information to criminally investigate or prosecute any alcohol or drug abuse patient.[facility] the event this information is protected by the Federal Confidentiality of Alcohol and Drug Abuse Patient Records regulations: The Federal rules restrict any use of the information to criminally investigate or prosecute any alcohol or drug abuse patient.[facility] the event this information is protected by the Federal Confidentiality of Alcohol and Drug Abuse Patient Records regulations: The Federal rules restrict any use of the information to criminally investigate or prosecute any alcohol or drug abuse patient.[facility] the event this information is protected by the Federal Confidentiality of Alcohol and Drug Abuse Patient Records regulations: The Federal rules restrict any use of the information to criminally investigate or prosecute any alcohol or drug abuse patient.[facility] HealthIn the event this information is protected by the Federal Confidentiality of Alcohol and Drug Abuse Patient Records regulations: The Federal rules restrict any use of the information to criminally investigate or prosecute any alcohol or drug abuse patient.[facility] HealthIn the event this information is protected by the Federal Confidentiality of Alcohol and Drug Abuse Patient Records regulations: The Federal rules restrict any use of the information to criminally investigate or prosecute any alcohol or drug abuse patient.[facility] HealthIn the event this information is protected by the Federal Confidentiality of Alcohol and Drug Abuse Patient Records regulations: The Federal rules restrict any use of the information to criminally investigate or prosecute any alcohol or drug abuse patient.[facility] HealthIn the event this information is protected by the Federal Confidentiality of Alcohol and Drug Abuse Patient Records regulations: The Federal rules restrict any use of the information to criminally investigate or prosecute any alcohol or drug abuse patient.[facility] HealthIn the event this information is protected by the Federal Confidentiality of Alcohol and Drug Abuse Patient Records regulations: The Federal rules restrict any use of the information to criminally investigate or prosecute any alcohol or drug abuse patient.[facility] HealthIn the event this information is protected by the Federal Confidentiality of Alcohol and Drug Abuse Patient Records regulations: The Federal rules restrict any use of the information to criminally investigate or prosecute any alcohol or drug abuse patient.[facility] HealthIn the event this information is protected by the Federal Confidentiality of Alcohol and Drug Abuse Patient Records regulations: The Federal rules restrict any use of the information to criminally investigate or prosecute any alcohol or drug abuse patient.[facility] HealthIn the event this information is protected by the Federal Confidentiality of Alcohol and Drug Abuse Patient Records regulations: The Federal rules restrict any use of the information to criminally investigate or prosecute any alcohol or drug abuse patient.[facility] HealthIn the event this information is protected by the Federal Confidentiality of Alcohol and Drug Abuse Patient Records regulations: The Federal rules restrict any use of the information to criminally investigate or prosecute any alcohol or drug abuse patient.[facility] HealthIn the event this information is protected by the Federal Confidentiality of Alcohol and Drug Abuse Patient Records regulations: The Federal rules restrict any use of the information to criminally investigate or prosecute any alcohol or drug abuse patient.[facility] HealthIn the event this information is protected by the Federal Confidentiality of Alcohol and Drug Abuse Patient Records regulations: The Federal rules restrict any use of the information to criminally investigate or prosecute any alcohol or drug abuse patient.[facility] HealthIn the event this information is protected by the Federal Confidentiality of Alcohol and Drug Abuse Patient Records regulations: The Federal rules restrict any use of the information to criminally investigate or prosecute any alcohol or drug abuse patient.[facility] HealthIn the event this information is protected by the Federal Confidentiality of Alcohol and Drug Abuse Patient Records regulations: The Federal rules restrict any use of the information to criminally investigate or prosecute any alcohol or drug abuse patient.[facility] HealthIn the event this information is protected by the Federal Confidentiality of Alcohol and Drug Abuse Patient Records regulations: The Federal rules restrict any use of the information to criminally investigate or prosecute any alcohol or drug abuse patient.[facility] HealthIn the event this information is protected by the Federal Confidentiality of Alcohol and Drug Abuse Patient Records regulations: The Federal rules restrict any use of the information to criminally investigate or prosecute any alcohol or drug abuse patient.[facility] HealthIn the event this information is protected by the Federal Confidentiality of Alcohol and Drug Abuse Patient Records regulations: The Federal rules restrict any use of the information to criminally investigate or prosecute any alcohol or drug abuse patient.[facility] HealthIn the event this information is protected by the Federal Confidentiality of Alcohol and Drug Abuse Patient Records regulations: The Federal rules restrict any use of the information to criminally investigate or prosecute any alcohol or drug abuse patient.[facility] HealthIn the event this information is protected by the Federal Confidentiality of Alcohol and Drug Abuse Patient Records regulations: The Federal rules restrict any use of the information to criminally investigate or prosecute any alcohol or drug abuse patient.[facility] HealthIn the event this information is protected by the Federal Confidentiality of Alcohol and Drug Abuse Patient Records regulations: The Federal rules restrict any use of the information to criminally investigate or prosecute any alcohol or drug abuse patient.[facility] HealthIn the event this information is protected by the Federal Confidentiality of Alcohol and Drug Abuse Patient Records regulations: The Federal rules restrict any use of the information to criminally investigate or prosecute any alcohol or drug abuse patient.[facility] HealthIn the event this information is protected by the Federal Confidentiality of Alcohol and Drug Abuse Patient Records regulations: The Federal rules restrict any use of the information to criminally investigate or prosecute any alcohol or drug abuse patient.[facility] HealthIn the event this information is protected by the Federal Confidentiality of Alcohol and Drug Abuse Patient Records regulations: The Federal rules restrict any use of the information to criminally investigate or prosecute any alcohol or drug abuse patient.[facility] HealthIn the event this information is protected by the Federal Confidentiality of Alcohol and Drug Abuse Patient Records regulations: The Federal rules restrict any use of the information to criminally investigate or prosecute any alcohol or drug abuse patient.[facility] HealthIn the event this information is protected by the Federal Confidentiality of Alcohol and Drug Abuse Patient Records regulations: The Federal rules restrict any use of the information to criminally investigate or prosecute any alcohol or drug abuse patient.[facility] HealthIn the event this information is protected by the Federal Confidentiality of Alcohol and Drug Abuse Patient Records regulations: The Federal rules restrict any use of the information to criminally investigate or prosecute any alcohol or drug abuse patient.[facility] HealthIn the event this information is protected by the Federal Confidentiality of Alcohol and Drug Abuse Patient Records regulations: The Federal rules restrict any use of the information to criminally investigate or prosecute any alcohol or drug abuse patient.[facility] HealthIn the event this information is protected by the Federal Confidentiality of Alcohol and Drug Abuse Patient Records regulations: The Federal rules restrict any use of the information to criminally investigate or prosecute any alcohol or drug abuse patient.[facility] HealthIn the event this information is protected by the Federal Confidentiality of Alcohol and Drug Abuse Patient Records regulations: The Federal rules restrict any use of the information to criminally investigate or prosecute any alcohol or drug abuse patient.[facility] HealthIn the event this information is protected by the Federal Confidentiality of Alcohol and Drug Abuse Patient Records regulations: The Federal rules restrict any use of the information to criminally investigate or prosecute any alcohol or drug abuse patient.[facility] HealthIn the event this information is protected by the Federal Confidentiality of Alcohol and Drug Abuse Patient Records regulations: The Federal rules restrict any use of the information to criminally investigate or prosecute any alcohol or drug abuse patient.[facility] HealthIn the event this information is protected by the Federal Confidentiality of Alcohol and Drug Abuse Patient Records regulations: The Federal rules restrict any use of the information to criminally investigate or prosecute any alcohol or drug abuse patient.[facility] HealthIn the event this information is protected by the Federal Confidentiality of Alcohol and Drug Abuse Patient Records regulations: The Federal rules restrict any use of the information to criminally investigate or prosecute any alcohol or drug abuse patient.[facility] HealthIn the event this information is protected by the Federal Confidentiality of Alcohol and Drug Abuse Patient Records regulations: The Federal rules restrict any use of the information to criminally investigate or prosecute any alcohol or drug abuse patient.[facility] HealthIn the event this information is protected by the Federal Confidentiality of Alcohol and Drug Abuse Patient Records regulations: The Federal rules restrict any use of the information to criminally investigate or prosecute any alcohol or drug abuse patient.[facility] HealthIn the event this information is protected by the Federal Confidentiality of Alcohol and Drug Abuse Patient Records regulations: The Federal rules restrict any use of the information to criminally investigate or prosecute any alcohol or drug abuse patient.[facility] HealthIn the event this information is protected by the Federal Confidentiality of Alcohol and Drug Abuse Patient Records regulations: The Federal rules restrict any use of the information to criminally investigate or prosecute any alcohol or drug abuse patient.[facility] HealthIn the event this information is protected by the Federal Confidentiality of Alcohol and Drug Abuse Patient Records regulations: The Federal rules restrict any use of the information to criminally investigate or prosecute any alcohol or drug abuse patient.[facility] HealthIn the event this information is protected by the Federal Confidentiality of Alcohol and Drug Abuse Patient Records regulations: The Federal rules restrict any use of the information to criminally investigate or prosecute any alcohol or drug abuse patient.[facility] HealthIn the event this information is protected by the Federal Confidentiality of Alcohol and Drug Abuse Patient Records regulations: The Federal rules restrict any use of the information to criminally investigate or prosecute any alcohol or drug abuse patient.[facility] HealthIn the event this information is protected by the Federal Confidentiality of Alcohol and Drug Abuse Patient Records regulations: The Federal rules restrict any use of the information to criminally investigate or prosecute any alcohol or drug abuse patient.[facility] HealthIn the event this information is protected by the Federal Confidentiality of Alcohol and Drug Abuse Patient Records regulations: The Federal rules restrict any use of the information to criminally investigate or prosecute any alcohol or drug abuse patient.[facility] Reason for Visit (unrecogniz ed section and content) Reason Comments Test strips RX Reason Comments Follow Up Reason Comments Results Reason Comments Prior authorization to be done test stri ps/lancets Reason Comments Nursing Plan of Care Patient Update regarding BP Reason Comments Patient Request Reason Comments Hospital Follow Up 11/22/21 - 11/26/21 Feve r, weakness, dizziness Mass on forehead Reason Comments Radiology CT Specialty Diagnoses / Procedures Referred By Contjefry t Referred To Contact CT IMAGING Diagnoses Scalp mass Thunderclap headache Procedures CT BRAIN WO IVCON CT HEAD/BRAIN W/O CONTRAST MATERIAL Cuong Trujillo MD [address] [place] [address] Ct Imaging Referral ID Status Reason Start Date Expiration Date V isits Requested Visits Authorized [id number] Closed Auto-Generate d Referral 12/05/2021 01/03/2022 1 1 Reason Comments Orders [facility] Reason Onset Date Comments Refill Request 01/25/2022 Reason Onset Date Comments Refill Request 03/08/2022 Reason Comments Orders Reason Comments Forms Reason Comments Appointment Reason Comments [facility] Specialty Diagnoses / Procedures Referred By Sofiya kruse Referred To Contact Gynecology Diagnoses Screening for malignant neoplasm of cervix Procedures CONSULT TO GYNECOLOGY OFFICE/OUTPATIENT NEW HIGH MDM 60-74 MINUTES Cuong Trujillo MD [address] [place] [address] Referral ID Status Reason Start Date Expiration Date V isits Requested Visits Authorized [id number] Closed PCP Requested Referral Auto-Generated Referral 06/08/2022 06/08/2023 1 1 Reason Onset Date Comments Refill Request 07/20/2022 Reason Onset Date Comments Refill Request 07/26/2022 Reason Onset Date Comments Opened In Error 07/28/2022 Reason Comments Results Reason Onset Date Comments Refill Request 09/13/2022 Reason Comments Pre-Op Exam Reason Onset Date Comments Refill Request 12/20/2022 Reason Comments Urinary Frequency burning with urinati on x 1 day, pelvic pressure x 3 days Reason Comments Insurance Authorization [employer] Reason Comments Insurance Authorization Nuvigil Reason Onset Date Comments Refill Request 03/29/2023 Reason Comments 6 Month Exam Reason Onset Date Comments Refill Request 04/24/2023 Reason Onset Date Comments Refill Request 07/15/2023 Reason Onset Date Comments Refill Request 10/19/2023 Reason Onset Date Comments Population Health Navigation Outreach 11/16/2023 [facility] Reason Onset Date Comments Refill Request 12/29/2023 Reason Onset Date Comments Refill Request 01/09/2024 Reason Onset Date Comments Population Health Navigation Outreach 02/02/2024 [facility] Care Teams (unrecognized sec tion and content) Spring Coverer Relationship Specialty Start Date End Date Cuong Trujillo MD [address] [place], [place] [id number] PCP - General Family Practice 12/29/15 Spring Coverer Relationship Specialty Start Date End Date Cuong Trujillo MD [address] [place] [address] PCP - General Family Practice 12/29/15 Spring Coverer Relationship Specialty Start Date End Date Cuong Trujillo MD [address] [facility] [place] [address] PCP - General Family Practice 12/29/15 Spring Coverer Relationship Specialty Start Date End Date Cuong Trujillo MD [address] [facility] [place] [address] PCP - General Family Practice 12/29/15 Spring Coverer Relationship Specialty Start Date End Date Cuong Trujillo MD [address] [facility] [place] [address] PCP - General Family Practice 12/29/15 Spring Coverer Relationship Specialty Start Date End Date Cuong Trujillo MD [address] [facility] [place] [address] PCP - General Family Practice 12/29/15 Spring Coverer Relationship Specialty Start Date End Date Cuong Trujillo MD [address] [facility] [place] [address] PCP - General Family Practice 12/29/15 Spring Coverer Relationship Specialty Start Date End Date Cuong Trujillo MD [address] [facility] [place] [address] PCP - General Family Practice 12/29/15 Spring Coverer Relationship Specialty Start Date End Date Cuong Trujillo MD [address] [facility] [place] [address] PCP - General Family Practice 12/29/15 Spring Coverer Relationship Specialty Start Date End Date Cuong Trujillo MD [address] [facility] [place] [address] PCP - General Family Practice 12/29/15 Spring Coverer Relationship Specialty Start Date End Date Cuong Trujillo MD [address] [facility] [place] [address] PCP - General Family Practice 12/29/15 Spring Coverer Relationship Specialty Start Date End Date Cuong Trujillo MD [address] [facility] [place] [address] PCP - General Family Practice 12/29/15 Spring Coverer Relationship Specialty Start Date End Date Cuong Trujillo MD [address] [facility] [place] [address] PCP - General Family Practice 12/29/15 Spring Coverer Relationship Specialty Start Date End Date Cuong Trujillo MD [address] [facility] [place] [address] PCP - General Family Practice 12/29/15 Spring Coverer Relationship Specialty Start Date End Date Cuong Trujillo MD [address] [facility] [place] [address] PCP - General Family Medicine 12/29/15 Spring Coverer Relationship Specialty Start Date End Date Cuong Trujillo MD [address] [facility] [place] [address] PCP - General Family Medicine 12/29/15 Spring Coverer Relationship Specialty Start Date End Date Cuong Trujillo MD [address] [facility] [place] [address] PCP - General Family Medicine 12/29/15 Spring Coverer Relationship Specialty Start Date End Date Cuong Trujillo MD [address] [facility] [place] [address] PCP - General Family Medicine 12/29/15 Spring Coverer Relationship Specialty Start Date End Date Cuong Trujillo MD [address] [facility] [place] [address] PCP - General Family Medicine 12/29/15 Spring Coverer Relationship Specialty Start Date End Date Cuong Trujillo MD [address] [facility] [place] [address] PCP - General Family Medicine 12/29/15 Spring Coverer Relationship Specialty Start Date End Date Cuong Trujillo MD [address] [place] [address] PCP - General Family Medicine 12/29/15 Spring Coverer Relationship Specialty Start Date End Date Cuong Trujillo MD [address] [place] [address] PCP - General Family Medicine 12/29/15 Spring Coverer Relationship Specialty Start Date End Date Cuong Trujillo MD [address] [place] [address] PCP - General Family Medicine 12/29/15 Spring Coverer Relationship Specialty Start Date End Date Cuong Trujillo MD [address] [place] [address] PCP - General Family Medicine 12/29/15 Spring Coverer Relationship Specialty Start Date End Date Cuong Trujillo MD [address] [place] [address] PCP - General Family Medicine 12/29/15 Spring Coverer Relationship Specialty Start Date End Date Cuong Trujillo MD [address] [place] [address] PCP - General Family Medicine 12/29/15 Spring Coverer Relationship Specialty Start Date End Date Cuong Trujillo MD [address] [place], [place] [id number] PCP - General Family Medicine 12/29/15 Spring Coverer Relationship Specialty Start Date End Date Cuong Trujillo MD [address] [place], [place] [address] PCP - General Family Medicine 12/29/15 Spring Coverer Relationship Specialty Start Date End Date Cuong Trujillo MD [address] [place], [place] [address] PCP - General Family Medicine 12/29/15 Spring Coverer Relationship Specialty Start Date End Date Cuong Trujillo MD [address] [place], [place] [id number] PCP - General Family [facility] 12/29/15 Spring Coverer Relationship Specialty Start Date End Date Cuong Trujillo MD [address] [place], [place] [address] PCP - General [facility] 12/29/15 Spring Coverer Relationship Specialty Start Date End Date Cuong Trujillo MD [address] [place], [place] [id number] PCP - General Family [facility] 12/29/15 FOR RECORDS PERTAINING TO PATIENTS WHO ARE OR HAVE BEEN ENROLLED IN A CHEMICAL DEPENDENCY/SUBSTANCEABUSE PROGRAM, SOME INFORMATION MAY BE OMITTED. This clinical summary was aggregated from multiple sources. Caution should be exercised in using it in the provision of clinical care. This summary normalizes information from multiple sources, and as a consequence, information in this document may materially change the coding, format and clinical context of patient data. In addition, data may be omitted in some cases. CLINICAL DECISIONS SHOULD BE BASED ON THE PRIMARY CLINICAL RECORDS. [facility] [employer] [facility]. provides no warranty or guarantee of the accuracy or completeness of information in this document.
[2024-02-06] MEDS: Potassium Chloride Oral Tablet 20 MEQ 40 MEQ PO (12:43)
[2024-02-06] MEDS: Insulin Lispro 100 UNIT/ML INSULN.PEN 20 UNIT SC (12:44)
[2024-02-06] MEDS: 0.9% Normal Saline (1000mL) 1,000 ML 150 ML IV (12:49)
--- OUTSIDE RECORDS SUMMARY | 2024-02-06 13:05 | XMS RPT_ITS | CCD ---
Author Organization [facility] Inform ion Partnership [facility] Care Team Providers Care Yield Clerk Name Role Phone MIKO ROCA MD Attending [...] Care Unavailable YRIS KELLEY Attending Unavailable CUONG TRUJILLO Primary Care Unavailable CUONG TRUJILLO Referring Unavailable CUONG TRUJILLO Primary Care Unavailable CUONG TRUJILLO Primary Care Unavailable YRIS KELLEY Referring Unavailable CUONG TRUJILLO Primary Care Unavailable Allergies Allergy Classification Reported Allergen(s) Allergy Type Date of Onset Reaction(s) Facility Cats (1 source) Cat Animal Allergy (Dander) 7 [facility] Dogs (1 source) Dog Animal Allergy (Dander) 7 [facility] Dust (1 source) Dust Substance Allergy 7 [facility] Glycopeptides (antibiotic) (1 source) Vancomycin Drug Allergy 2 Other: See Comments [facility] Latex (1 source) Latex Substance Allergy 7 [facility] Lincosamides (antibiotic) (1 source) Clindamycin Drug Allergy 9 Hives [facility] Mold Extract (1 source) Mold Extract Drug Allergy 7 [facility] Work Phone: pregabalin (1 source) pregabalin Drug Allergy 9 Swelling [facility] (1 source) 05/10/16 (+) MRSA WOUND; Translations: [05/10/16 (+) MRSA WOUND] Propensity to adverse reactions (disorder) [facility] (20 sources) Cat; Translations: [CATS] Propensity to adverse reactions 7 [facility] Work Phone: (20 sources) Clindamycin; Translations: [CLINDAMYCIN] Drug Allergy 9 Hives [facility] Work Phone: (20 sources) Dog; Translations: [DOGS] Propensity to adverse reactions 7 [facility] Work Phone: (20 sources) Dust; Translations: [DUST] Propensity to adverse reactions 7 [facility] Work Phone: (20 sources) House dust mite; Translations: [DUST MITES] Propensity to adverse reactions 7 [facility] Work Phone: (20 sources) Latex; Translations: [LATEX] Propensity to adverse reactions 7 [facility] Work Phone: (20 sources) Mold Extract; Translations: [MOLD] Drug Allergy 7 [facility] Work Phone: (20 sources) pregabalin; Translations: [PREGABALIN] Drug Allergy 9 Swelling [facility] (20 sources) Bees; Translations: [BEES] Propensity to adverse reactions 7 [facility] Work Phone: (20 sources) Vancomycin; Translations: [VANCOMYCIN] Drug Allergy 2 Other: See Comments [facility] Medications Current Medications Medication Drug Class(es) Dates [...] Comment on above: TAKE 1 TABLET BY PATRICAI TH THREE TIMES DAILY NEEDED FOR MUSCLE [...] on above: Take 1 capsule by mo [facility] twice daily for 7 days. [id number] 0.3 ml EPINEPHrine 1 mg/ml auto-injector (20 [...] Comment on above: Take 1 capsule by [facility] twice daily with meals for 7 [...] Comment on above: Take 1 tablet by [facility] once daily. mupirocin 0.02 mg/mg topical [...] 25-hydroxyvitamin D3 [Mass/Vol] 29.4 ng/mL Low 31.0-80.0 [place] Comment on above: Order Comment: Marilin alejandro Type: BLOOD SPECIMEN Ordering Facility: [facility] Address: [address] [place] [address] [address] [place] [id number] Performed By: #### 2 498-4, 2131-9, 6-4, 2730-8 #### [facility] CLIA [id number] [address] [place] [address] [place] Ferritin SerPl-mCncon 2023 Ferritin [Mass/Vol] 163.0 ng/mL Normal 14.7-205.1 [place] Comment on above: Order Comment: Marilin alejandro Type: BLOOD SPECIMEN Ordering Facility: [facility] Address: [address] [place] [address] [place] [address] Performed By: #### 2 498-4, 2131-9, 2275-4, 2730-8 #### [facility] CLIA [id number] [address] [place] [id number] [place] Iron SerPl-mCncon 02-01-2024 Iron [Mass/Vol] 91 ug/dL Normal 41-186 [place] Comment on above: Order Comment: Speci men Type: BLOOD SPECIMEN Ordering Facility: [facility] Address: [address] [place] [address] Performed By: #### 2 498-4, 2131-9, 2275-4, 2730-8 #### [facility] CLIA [id number] [address] [place] [address] [place] PTH-Intact SerPl-mCncon 01-22 Parathyrin.intact [Mass/Vol] 19 pg/mL Normal 15-65 [place] Comment on above: Order Comment: Speci men Type: BLOOD SPECIMEN Ordering Facility: [facility] Address: [address] [place] [address] Performed By: #### 2 498-4, 2131-9, 2275-4, 2730-8 #### [facility] CLIA [id number] [address] [place] [address] [place] Vit B12 SerPl-mCncon 024 Cobalamin (Vitamin B12) [Mass/Vol] 1212 pg/mL Normal 232-1245 [place] Comment on above: Order Comment: Speci men Type: BLOOD SPECIMEN Ordering Facility: [facility] Address: [address] [place] [address] Performed By: #### 2 498-4, 2131-9, 2275-4, 2730-8 #### [facility] CLIA [id number] [address] [place] [address] [place] HBA1C (OUTSIDE)on 01-20-2024 HbA1c (Bld) [Mass fraction] 12.8 % [facility] Comment on above: @ endo [facility] Endo [facility] CNPNon 11-01-2023 CNPN Telephone (FAMPWS) DILEEPPHYLICIA ([id number]) 1965 F Date Time Provider Department 11/01/23 [facility] your visit today, we recorded the [...] back to Dr. Osman . (Endo in [place].) JACOBO Kat Christy, APRN.CNP 11/01/2023 5:58 PM [...] of insulin (HCC) [E11.8] Order(s):CONSULT TO ENDOCRINOLOGY [7279] Order #: [id number]: 1 FUTURE Prescriptions as of 11/01/2023 - [...] shoulder [M (more content not included)... Normal [place] HbA1c (Bld)on 10-28-2023 Average glucose Estimated from glycated hemoglobin (Bld) [Mass/Vol] 275 mg/dL Normal [place] Comment on above: Order Comment: Marilin alejanrdo Type: BLOOD SPECIMEN Ordering Facility: [facility] Address: [facility] [place] [address] Result Comment: eAG: (Estimated average glucose) is a calculated value from HgbA1c and is personal banking representative of the average blood glucose level in the last 2-3 month period. Performed By: #### 2 498-4, 2131-9, 2275-4, 2730-12 #### [facility] CLIA [id number] [address] [place] [address] [place] HbA1c (Bld) [Mass fraction] 11.2 % High 4.3-5.6 [place] Comment on above: Order Comment: Marilin alejandro Type: BLOOD SPECIMEN Ordering Facility: [facility] Address: [facility] [place] [address] Result Comment: Amer [place] Diabetes Association guidelines indicate that patients with HgbA1c in the range 5.7-6.4% are at increased risk for development of diabetes, and intervention by lifestyle modification may be beneficial. HgbA1c greater or equal to 6.5% is considered diagnostic of diabetes. Performed By: #### 2 498-4, 9, 2275-4, 8 #### [facility] CLIA [id number] [address] [place] [address] [place] T3 SerPl-mCncon 10-28-2023 T3 [Mass/Vol] 192 ng/dL High 79-165 [place] Comment on above: Order Comment: Marilin alejandro Type: BLOOD SPECIMEN Ordering Facility: [facility] Address: [facility] [place] [address] Performed By: #### 2 498-4, 2131-9, 2275-4, 2730-8 #### [facility] CLIA [id number] [address] [place], [place] [address] [place] T4 Free SerPl-mCncon 024 Free T4 [Mass/Vol] 0.8 ng/dL Low 0.9-1.7 [facility] Comment on above: Order Comment: Speci men Type: BLOOD SPECIMEN Ordering Facility: [facility] Address: [facility] [address] [place] [id number] Performed By: #### 2 498-4, 2132-9, 2276-4, 2731-8 #### [facility] CLIA [id number] [address] [place], [place] [address] [place] TSH SerPl-aCncon 10-28-2023 TSH Qn 1.200 m[IU]/L Normal 0.270-4.20 0 [place] Comment on above: Order Comment: Speci men Type: BLOOD SPECIMEN Ordering Facility: [facility] Address: [address] [place] [address] [place] [address] Performed By: #### 2 498-4, 2-9, 6-4, 2731-8 #### [facility] CLIA [id number] [address] [place], [place] [address] [facility] [place] CNCOon 04-21-2023 CNCO HNO ID: [id number] Author: Coordinator, Mammography Service: ? Author Type: Physician Type: Letter Filed: 04/22/2023 11:32 PM Note Text: April 21, 2023 PID: [id number] Phylicia Falk [address] [place] [address] Dear Ms. Falk, We are pleased to [...] report will be kept on file at [facility] as part of your permanent medical record and are available for your continuing care. Thank you for allowing us to help in meeting your health care needs. Sincerely, Dr. Madison Interpreting Radiologist [facility] (Normal over 40) Normal [facility] SCREENINGon 04-21-2023 [facility] SCREENING * * *Final Report* * * DATE OF EXAM: Apr 21 2023 9:27AM WRW [id number] - [facility] SCREENING / PROCEDURE REASON: Encounter for screening mammogram for breast cancer * * * * Physician Interpretation * * * * RESULT: #[id number] - [facility] SCREENING BILATERAL DIGITAL SCREENING MAMMOGRAM WITH CAD: 04/21/2023 HISTORY: Encounter For Screening Mammogram For Breast Cancer. RESULT: TECHNIQUE: The study was acquired using full field digital technology and interpreted from soft copy. Current study was also evaluated with a Computer Aided Detection (CAD). Comparison is made to exams dated: 11/13/2021 mammogram, 10/07/2020 mammogram - [facility], 11/07/2018 mammogram, and 11/03/2017 mammogram - [facility]. There are scattered areas of fibroglandular density. No significant masses, calcifications, or other findings are seen in either breast. There has been no significant interval change. IMPRESSION: NEGATIVE There is no mammographic evidence of malignancy. A 1 year screening mammogram is recommended. Alexi Madison M.D. fa/penrad:04/21/2023 10:51:27 Supervisor Intelligence Analyst(s): RT Karla(Neymar)(M), [facility] letter sent: Normal over 40 Mammogram BI-RADS: [...] Health, Family Medicine, and Medical/Surgical Oncology, the [facility] has carefully reviewed the data and reached [...] their providers when to stop screening mammograms. Foreign Exchange Student Coordinator: Dima Transcribe Date/Time: Apr 21 2023 8:57A Dictated by: ALEXI MADISON MD This examination was interpreted and the report reviewed and electronically signed by: ALEXI MADISON MD on Apr 21 2023 10:51AM EST [id number] Normal [place] CNOVon 04-13-2023 CNOV Office Visit (FAMPWS ) FALKPHYLICIA ([id number]) 1965 F Date Time Provider Department 04/13/23 8:00 AM YRIS KELLEY During your visit today, we recorded the following information about you: Pulse Respiration Blood pressure 98/minute 16/minute 104/72 Yris Kelley APRN.PRODUCT BLENDING SUPERVISOR 04/13/2023 12:35 PM Signed This is [...] Diabetes mellitus type 2, controlled, without complications ([facility]) 08/12/2017 Muscle spasm Myalgia and myositis, unspecified [...] without long-term (more content not included)... Normal [place] PAIN PANEL, UR QUANTon 04-13 2-Kukplfxuwj-7,5-D imethyl-3,3-Diphen ylpyrrolidine (EDDP) Confirm (U) [Mass/Vol] <6 Normal <6 [place] Comment on above: Order Comment: Speci men Type: BLOOD SPECIMEN Ordering Facility: [facility] Address: [address] [place] [address] [address] [place] [address] Result Comment: EDDP is a metabolite of methadone. Performed By: #### 2 498-4, 2132-9, 2276-4, 2731-8 #### [facility] CLIA [id number] [address] [place] [address] [place] 6-Monoacetylmorphi ne (6-BALTAZAR) (U) [Mass/Vol] <5 Normal <5 [place] Comment on above: Order Comment: Speci men Type: BLOOD SPECIMEN Ordering Facility: [facility] Address: [facility] [place] [address] Result Comment: 6-MA M (6-monoacetylmorphine, also known as 6-acetylmorphine) is a unique metabolite of heroin. Presence of 6-BALTAZAR indicates use of heroin. 6-BALTAZAR is further metabolized to morphine and absence of 6-BALTAZAR does not rule out the use of heroin. Performed By: #### 2 498-4, 2131-9, 2275-08, 2730-12 #### [facility] CLIA [id number] [address] [place] [address] [place] Amphetamine Confirm (U) [Mass/Vol] <5 Normal <5 [place] Comment on above: Order Comment: Speci men Type: BLOOD SPECIMEN Ordering Facility: [facility] Address: [address] [place] [address] [place] [address] Performed By: #### 2 498-4, 9, 2275-08, 2730-12 #### [facility] CLIA [id number] [address] [place] [address] [place] Benzoylecgonine Confirm (U) [Mass/Vol] <24 Normal <24 [place] Comment on above: Order Comment: Speci men Type: BLOOD SPECIMEN Ordering Facility: [facility] Address: [address] [place] [address] [place] [address] Result Comment: Braulio oylecgonine is a metabolite of cocaine. Performed By: #### 2 498-4, 9, 2275-08, 2730-12 #### [facility] CLIA [id number] [address] [place] [address] [place] Buprenorphine (U) [Mass/Vol] <20 Normal <20 [place] Comment on above: Order Comment: Speci men Type: BLOOD SPECIMEN Ordering Facility: [facility] Address: [address] [place] [address] Performed By: #### 2 498-4, 9, 4, 8 #### [facility] CLIA [id number] [address] [address] [place] Cannabinoids Confirm (U) [Mass/Vol] <16 Normal <16 [place] Comment on above: Order Comment: Speci men Type: BLOOD SPECIMEN Ordering Facility: [facility] Address: [facility] [place] [address] Result Comment: Tetr ahydrocannabinol carboxylic acid (THCA) is a metabolite of khkzl-2-laaywyenoicuetphdzlo which is the main active component of marijuana. Performed By: #### 2 498-4, 9, 4, 8 #### [facility] CLIA [id number] [address] [place] [id number] [place] Codeine Confirm (U) [Mass/Vol] <11 Normal <11 [place] Comment on above: Order Comment: Speci men Type: BLOOD SPECIMEN Ordering Facility: [facility] Address: [facility] [place] [address] Performed By: #### 2 498-4, 9, 4, 8 #### [facility] CLIA [id number] [address] [address] [place] Dihydrocodeine Confirm (U) [Mass/Vol] <5 Normal <5 [place] Comment on above: Order Comment: Speci men Type: BLOOD SPECIMEN Ordering Facility: [facility] Address: [facility] [place] [address] Performed By: #### 2 498-4, 9, 2275-4, 8 #### [facility] CLIA [id number] [address] [address] [place] fentaNYL Confirm (U) [Mass/Vol] <6 Normal <6 [place] Comment on above: Order Comment: Speci men Type: BLOOD SPECIMEN Ordering Facility: [facility] Address: [facility] [place] [address] Performed By: #### 2 498-4, 9, 4, 8 #### [facility] CLIA [id number] [address] [place] [address] [place] HYDROcodone Confirm (U) [Mass/Vol] <8 Normal <8 [place] Comment on above: Order Comment: Speci men Type: BLOOD SPECIMEN Ordering Facility: [facility] Address: [address] [place] [address] [place] [address] Result Comment: Hydr ocodone is a metabolite of dihydrocodeine. Performed By: #### 2 498-4, 9, 2275-08, 2730-12 #### [facility] CLIA [id number] [address] [place] [address] [place] HYDROmorphone Confirm (U) [Mass/Vol] <5 Normal <5 [place] Comment on above: Order Comment: Speci men Type: BLOOD SPECIMEN Ordering Facility: [facility] Address: [facility] [place] [address] Result Comment: Hydr omorphone is a metabolite of hydrocodone. Performed By: #### 2 498-4, 2132-01, 2275-08, 2730-12 #### [facility] CLIA [id number] [address] [place], [place] [address] [place] Methadone Confirm (U) [Mass/Vol] <16 Normal <16 [place] Comment on above: Order Comment: Speci men Type: BLOOD SPECIMEN Ordering Facility: [facility] Address: [facility] [place] [address] Performed By: #### 2 498-4, 9, 2275-08, 2730-12 #### [facility] CLIA [id number] [address] [address] [place] Methamphetamine Confirm (U) [Mass/Vol] <8 Normal <8 [place] Comment on above: Order Comment: Speci men Type: BLOOD SPECIMEN Ordering Facility: [facility] Address: [facility] [place] [address] Performed By: #### 2 498-4, 9, 2275-08, 8 #### [facility] CLIA [id number] [address] [address] [place] Morphine Confirm (U) [Mass/Vol] <10 Normal <10 [place] Comment on above: Order Comment: Speci men Type: BLOOD SPECIMEN Ordering Facility: [facility] Address: [address] [place] [address] [place] [address] Result Comment: Morp luba is a metabolite of codeine and heroin. Performed By: #### 2 498-4, 9, 2275-08, 8 #### [facility] [place] [id number] [address] [place] [address] [place] Norbuprenorphine (U) [Mass/Vol] <20 Normal <20 [place] Comment on above: Order Comment: Speci men Type: BLOOD SPECIMEN Ordering Facility: [facility] Address: [address] [place] [address] [place] [address] Result Comment: Norb uprenorphine is the primary active metabolite of buprenorphine. Performed By: #### 2 498-4, 9, 2275-08, 8 #### [facility] CLIA [id number] [address] [place] [address] [place] Norfentanyl Confirm (U) [Mass/Vol] <6 Normal <6 [place] Comment on above: Order Comment: Speci men Type: BLOOD SPECIMEN Ordering Facility: [facility] Address: [address] [place] [address] [place] [address] Result Comment: Norf entanyl is a metabolite of fentanyl. Performed By: #### 2 498-4, 9, 2275-08, 2730-12 #### [facility] CLIA [id number] [address] [place] [address] [place] Nortramadol (U) [Mass/Vol] <20 Normal <20 [place] Comment on above: Order Comment: Speci men Type: BLOOD SPECIMEN Ordering Facility: [facility] Address: [address] [place] [address] [place] [address] Result Comment: Desm ethyltramadol is a metabolite of tramadol. Performed By: #### 2 498-4, 2132-01, 2275-08, 2730-12 #### [facility] CLIA [id number] [address] [place] [address] [place] NOTE,UR PAIN ZAMAN [facility] Comment on above: Order Comment: Speci men Type: BLOOD SPECIMEN Ordering Facility: [facility] Address: [address] [place] [address] [place] [address] Result Comment: This test is for medical use only. This test was developed and its performance characteristics determined by [facility]'s Mehul Jong [facility] [place] [facility]). It has not been cleared or approved by the FDA. -[facility] is regulated under CLIA as qualified to perform high-complexity testing. This test is used for clinical purposes. It should not be regarded as investigational or for research. Performed By: #### 2 498-4, 9, 2275-08, 2730-12 #### [facility] CLIA [id number] [address] [place] [id number] [place] oxyCODONE Confirm (U) [Mass/Vol] <10 Normal <10 [place] Comment on above: Order Comment: Speci men Type: BLOOD SPECIMEN Ordering Facility: [facility] Address: [address] [place] [address] [place] [address] Performed By: #### 2 498-4, 2132-01, 2275-08, 8 #### [facility] CLIA [id number] [address] [place] [id number] [place] oxyMORphone Confirm (U) [Mass/Vol] <5 Normal <5 [place] Comment on above: Order Comment: Speci men Type: BLOOD SPECIMEN Ordering Facility: [facility] Address: [address] [place] [address] [place] [address] Result Comment: Oxym orphone is a metabolite of oxycodone. Performed By: #### 2 498-4, 9, 2275-4, 2730-8 #### [facility] [place] [id number] [address] [place] [address] [place] traMADol Confirm (U) [Mass/Vol] <25 Normal <25 [place] Comment on above: Order Comment: Speci men Type: BLOOD SPECIMEN Ordering Facility: [facility] Address: [address] [place] [address] [place] [address] Performed By: #### 2 498-4, 2131-9, 2275-4, 2730-8 #### [facility] [place] [id number] [address] [place] [address] [place] SPECIMEN VALIDITY, URINEon 06-13-2022 CHROMATE,URINE <10 Normal <50 [place] Comment on above: Order Comment: Speci men Type: BLOOD SPECIMEN Ordering Facility: [facility] Address: [facility] [place] [address] Performed By: #### 2 498-4, 2131-9, 2275-4, 2730-8 #### [facility] [place] [id number] [address] [place] [address] [place] CREATININE,URINE 263.6 mg/dL Normal 20.0-300.0 [facility] Comment on above: Order Comment: Speci men Type: BLOOD SPECIMEN Ordering Facility: [facility] Address: [address] [place] [address] [address] [place] [id number] Performed By: #### 2 498-4, 9, 2275-4, 2730-8 #### [facility] CLIA [id number] [address] [address] [place] NITRITES,URINE <50 Normal <500 [place] Comment on above: Order Comment: Speci men Type: BLOOD SPECIMEN Ordering Facility: [facility] Address: [facility] [place] [address] Performed By: #### 2 498-4, 9, 2275-4, 2730-8 #### [facility] CLIA [id number] [address] [place], [place] [address] [place] OXIDANTS,URINE <38 Normal <200 [place] Comment on above: Order Comment: Speci men Type: BLOOD SPECIMEN Ordering Facility: [facility] Address: [facility] [address] [place] [id number] Performed By: #### 2 498-4, 9, 4, 2730-8 #### [facility] CLIA [id number] [address] [place], [place] [address] [place] pH (U) 5.6 [pH] Normal 4.5-8.0 [place] Comment on above: Order Comment: Speci men Type: BLOOD SPECIMEN Ordering Facility: [facility] Address: [facility] [place] [address] Performed By: #### 2 498-4, 9, 4, 8 #### [facility] CLIA [id number] [address] [address] [place] SPEC GRAVITY,UR 1.023 Normal 1.003-1.03 5 [place] Comment on above: Order Comment: Speci men Type: BLOOD SPECIMEN Ordering Facility: [facility] Address: [facility] [place] [address] Performed By: #### 2 498-4, 9, 2275-4, 2730-8 #### [facility] CLIA [id number] [address] [id number] [place] SPECIMEN VALIDITY QUALITY Specimen quality results within acceptable limits Normal [place] Comment on above: Order Comment: Speci men Type: BLOOD SPECIMEN Ordering Facility: [facility] Address: [address] [place] [address] [place] [address] Performed By: #### 2 498-4, 9, 4, 8 #### [facility] CLIA [id number] [address] [place] [address] [place] TOX SCREEN ROUT URon 11-21-2 023 Amphetamines Confirm (U) [Mass/Vol] Negative Negative [facility] Barbiturates Urine Negative Negative [facility] Benzodiazepines Urine Negative Negative [facility] Cannabinoids Screen Ql (U) Negative Negative [facility] Cocaine Ql (U) Negative Negative [facility] Ethanol (U) [Mass/Vol] <11 mg/dL [facility] Opiates Screen Ql (U) Negative Negative [facility] oxyCODONE cutoff Screen (U) [Mass/Vol] Negative Negative [facility] Phencyclidine Ql (U) Negative Negative [facility] Amphetamines Confirm (U) [Mass/Vol] Negative Normal Negative [place] Comment on above: Order Comment: Speci men Type: BLOOD SPECIMEN Ordering Facility: [facility] Address: [address] [place] [address] [place] [address] Result Comment: Cuto ff threshold at 1000 ng/mL. Performed By: #### 2 498-4, 9, 2275-4, 2730-8 #### [facility] CLIA [id number] [address] [place] [address] [place] BARBITURATES, URINE Negative Normal Negative [place] Comment on above: Order Comment: Speci men Type: BLOOD SPECIMEN Ordering Facility: [facility] Address: [address] [place] [address] [place] [address] Result Comment: Cuto ff threshold at 200 ng/mL. Performed By: #### 2 498-4, 2131-9, 2275-4, 2730-8 #### [facility] CLIA [id number] [address] [place] [address] [place] BENZODIAZEPINES, UR Negative Normal Negative [place] Comment on above: Order Comment: Speci men Type: BLOOD SPECIMEN Ordering Facility: [facility] Address: [address] [place] [address] [place] [address] Result Comment: Cuto ff threshold at 200 ng/mL. Performed By: #### 2 498-4, 2131-9, 2275-4, 2730-8 #### [facility] CLIA [id number] [address] [place] [address] [place] Cannabinoids Screen Ql (U) Negative Normal Negative [place] Comment on above: Order Comment: Speci men Type: BLOOD SPECIMEN Ordering Facility: [facility] Address: [address] [place] [address] [place] [address] Result Comment: Cuto ff threshold at 50 ng/mL. Performed By: #### 2 498-4, 2131-9, 2275-4, 2730-8 #### [facility] CLIA [id number] [address] [place] [address] [place] Cocaine Ql (U) Negative Normal Negative [place] Comment on above: Order Comment: Speci men Type: BLOOD SPECIMEN Ordering Facility: [facility] Address: [address] [place] [address] [place] [address] Result Comment: Cuto ff threshold at 300 ng/mL. Performed By: #### 2 498-4, 2131-9, 2275-4, 2730-8 #### [facility] CLIA [id number] [address] [place] [address] [place] Ethanol (U) [Mass/Vol] <11 Normal <11 [place] Comment on above: Order Comment: Speci men Type: BLOOD SPECIMEN Ordering Facility: [facility] Address: [address] [place] [address] Performed By: #### 2 498-4, 9, 2275-08, 2730-12 #### [facility] CLIA [id number] [address] [place] [address] [place] Opiates Screen Ql (U) Negative Normal Negative [place] Comment on above: Order Comment: Speci men Type: BLOOD SPECIMEN Ordering Facility: [facility] Address: [facility] [place] [address] Result Comment: Cuto ff threshold at 300 ng/mL. Performed By: #### 2 498-4, 9, 2275-08, 2730-12 #### [facility] CLIA [id number] [address] [place] [address] [place] oxyCODONE cutoff Screen (U) [Mass/Vol] Negative Normal Negative [place] Comment on above: Order Comment: Speci men Type: BLOOD SPECIMEN Ordering Facility: [facility] Address: [address] [place] [address] [place] [address] Result Comment: Cuto ff threshold at 100 ng/mL. Performed By: #### 2 498-4, 9, 2275-08, 2730-12 #### [facility] CLIA [id number] [address] [place] [address] [place] Phencyclidine Ql (U) Negative Normal Negative [place] Comment on above: Order Comment: Speci men Type: BLOOD SPECIMEN Ordering Facility: [facility] Address: [address] [place] [address] [place] [address] Result Comment: Cuto ff threshold at 25 ng/mL. Performed By: #### 2 498-4, 9, 2275-08, 2730-12 #### [facility] CLIA [id number] [address] [place] [address] [place] HbA1c (Bld)on 04-02-2023 Average glucose Estimated from glycated hemoglobin (Bld) [Mass/Vol] 177 mg/dL Normal [place] Comment on above: Order Comment: Marilin alejandro Type: BLOOD SPECIMEN Ordering Facility: [facility] Address: [address] [place] [address] [place] [address] Result Comment: eAG: (Estimated average glucose) is a calculated value from HgbA1c and is personal banking representative of the average blood glucose level in the last 2-3 month period. Performed By: #### 2 498-4, 2131-9, 2275-, 2730-12 #### [facility] CLIA [id number] [address] [place] [address] [place] HbA1c (Bld) [Mass fraction] 7.8 % High 4.3-5.6 [place] Comment on above: Order Comment: Marilin alejandro Type: BLOOD SPECIMEN Ordering Facility: [facility] Address: [address] [place], [place] [address] [address] Result Comment: [place] Diabetes Association guidelines indicate that patients with HgbA1c in the range 5.7-6.4% are at increased risk for development of diabetes, and intervention by lifestyle modification may be beneficial. HgbA1c greater or equal to 6.5% is considered diagnostic of diabetes. Performed By: #### 2 498-4, 2131-9, 2275-4, 2730-12 #### [facility] CLIA [id number] [address] [place] [address] [place] Ulises 03-02-2023 [facility] PHYLICIA FALK ([id number]) 1965 F Date Time Provider Department 03/02/23 [facility] During your visit today, we recorded [...] Nuvigil was approved and patient notified through [facility] Anahi Kamara Ma, LPN 03/05/2023 10:21 AM Signed Edwin with [employer] called with authorization numbers for approvals below. 1) Armodafinil PA # [id number] for 12 months 03-04-23 thru 03-04-24 2) Mounjaro PA # [id number] for 12 months 03-04-23 thru 1-=12=24. Anahi Layton CARDIAC SONOGRAPHER Allergies As of Date: 03/02/2023 Noted Allergy [...] Status:Closed by SHARYN HURT MA on 03/05/23 [facility] 02-11-2023 [facility] (CLAUDIA[facility] PHYLICIA FALK ([id number]) 1965 F Date Time Provider Department 02/11/23 [facility] During your visit today, we recorded the following information about you: Sharyn Hurt Ma 02/11/2023 11:40 AM Signed Electronic PA submitted for Janumet Sharyn Hurt Ma, Sharyn 02/18/2023 9:57 AM Signed Called to check on status with Irina and advised need to call Heather who is handling PA Heather RUBIO number [phone] Spoke to Heather Corral who checked on status of PA and is still pending and pushed to expedite due to being diabetic [facility] Keller Ma, RN 02/19/2023 5:04 PM Signed Norah - [facility] - phoned to report Joseumet has been [...] MONTES DE OCA LPN on 02/22/23 Normal [place] UA DIP, URINE (POC)on 2022 BILIRUBIN UA (POCT) Small Abnormal Negative [facility] CLARITY UA (POCT) Slightly Cloudy Cl [facility] COLOR UA (POCT) Dark yellow [facility] GLUCOSE UA (POCT) Negative Negative mg/dL [facility] HEMOGLOBIN/BLOOD UA (POCT) Moderate Abnormal Negative [facility] KETONE UA (POCT) Trace Negative mg/dL [facility] LEUKOCYTES UA (POCT) Small Abnormal Negative [facility] NITRITE UA (POCT) Negative Negative [facility] PH UA (POCT) 5.0 4.5 - 8.0 [facility] Protein Ql (U) 100 mg/dL Abnormal Negative mg/dL [facility] SPECIFIC GRAVITY UA (POCT) >=1.030 1.005 - 1.030 [facility] UROBILINOGEN UA (POCT) 0.2 E.U./dL Normal E.U./dL [facility] CT BRAIN WO IVCONon 12-13-19 [facility] No Panel Informationon 11-13 [facility] BMP with eGFRon 07-09-2021 AGE 55 years Normal [facility] Comment on above: Performed By: #### 2 80366 #### [facility],[address] [place] [address]365 Anion gap [Moles/Vol] 20 mmol/L Normal 10 - 20 [facility] Comment on above: Performed By: #### 2 16271 #### [facility],[address] [place] [address] 70144 BMP with eGFR Normal [facility] Comment on above: Result Comment: BASI C METABOLIC PANEL Performed By: #### 2 20670 #### [facility],[address] [place] [address] 71553 Calcium [Mass/Vol] 10.2 mg/dL High 8.5 - 10.1 [facility] Comment on above: Performed By: #### 2 03259 #### [facility],[address] [place] [address] 69441 Chloride [Moles/Vol] 99 mmol/L Normal 98 - 107 [facility] Comment on above: Performed By: #### 2 02226 #### [facility],[address] [place] [address] 06926 CO2 [Moles/Vol] 22.5 mmol/L Normal 21.0 - 32.0 [facility] Comment on above: Performed By: #### 2 11033 #### [facility],[address] [place] [address] 11113 Creatinine [Mass/Vol] 0.76 mg/dL Normal 0.55 - 1.02 [facility] Comment on above: Performed By: #### 2 51384 #### [facility],[address] [place] [address] 99742 GFR/1.73 sq M.predicted among non-blacks MDRD (S/P/Bld) [Vol rate/Area] mL/min/{1.73_m2} Normal 60 - 999 [facility] Comment on above: Performed By: #### 2 38402 #### [facility],[address] [place] [address] Result Comment: ACCO RDING TO THE NATIONAL KIDNEY DISEASE EDUCATION PROGRAM(NKDE), A NORMAL eGFR IS A VALUE GREATER THAN OR EQUAL TO 60 ML/MIN/1.73 SQ METERS. CHRONIC KIDNEY DISEASE: <60mL/MIN/1.73 SQ METERS KIDNEY FAILURE: <15mL/MIN/1.73 SQ METERS THIS TEST SHOULD ONLY BE USED FOR PATIENTS 18 YEARS OF AGE AND OLDER. Glucose [Mass/Vol] 193 mg/dL High 74 - 106 [facility] Comment on above: Performed By: #### 2 05638 #### [place] [address] Potassium [Moles/Vol] 4.0 mmol/L Normal 3.5 - 5.1 [facility] Comment on above: Performed By: #### 2 47108 #### [facility],[address] [place] [address] Sodium [Moles/Vol] 137 mmol/L Normal 136 - 145 [facility] Comment on above: Performed By: #### 2 73958 #### [facility],[address] [place] [address] Urea nitrogen [Mass/Vol] 16 mg/dL Normal 7 - 18 [facility] Comment on above: Performed By: #### 2 04453 #### [facility],[address] [place], [place] [address] C-REACTIVE PROTEINon 022 CRP 2.80 mg/dl High 0.00 - 0.90 [facility] Comment on above: Performed By: #### 2 02366 #### [facility],[address] [place], [place] [address] CBC + DIFFon 07-09-2021 Baso # 0.10 x10EE3/UL Normal 0.00 - 0.10 [facility] Comment on above: Performed By: #### 2 30024 #### [facility],[address] [place] [address] 68273 Basophils/100 WBC (Bld) 1.0 % Normal 0.0 - 2.0 [facility] Comment on above: Performed By: #### 2 20633 #### [facility],[address] [place] [address] CBC + DIFF Normal [facility] Comment on above: Result Comment: CBC- COMPLETE BLOOD COUNT Performed By: #### 2 84614 #### [facility],[address] [place] [address] EO # 0.40 x10EE3/UL Normal 0.00 - 0.50 [facility] Comment on above: Performed By: #### 2 86430 #### [facility],[address] [place], [place] [address] Eosinophils/100 WBC (Bld) 4.0 % Normal 0.0 - 7.0 [facility] Comment on above: Performed By: #### 2 55202 #### [facility],[address] [place] [address] Erythrocyte distribution width (RBC) [Ratio] 17.6 % High 12.0 - 15.6 [facility] Comment on above: Performed By: #### 2 16465 #### [facility],[address] [place] [address] Hematocrit (Bld) [Volume fraction] 31.8 % Low 34.0 - 46.0 [facility] Comment on above: Performed By: #### 2 57827 #### [facility],[address] [place], [place] [address] Hemoglobin (Bld) [Mass/Vol] 10.5 g/dL Low 12.0 - 16.0 [facility] Comment on above: Performed By: #### 2 83683 #### [facility],[address] [place] [address] Lymph # 1.70 x10EE3/UL Normal 0.80 - 2.80 [facility] Comment on above: Performed By: #### 2 85831 #### [facility],[address] [place] [address] 01602 Lymphocytes/100 WBC (Bld) 16.8 % Low 20.0 - 45.0 [facility] Comment on above: Performed By: #### 2 24841 #### [facility],[address] [place] [address] 92809 MANUAL DIFF N/A Normal [facility] Comment on above: Performed By: #### 2 26669 #### [facility],[address] [place] [address] 04817 MCH (RBC) [Entitic mass] 30 pg Normal 27 - 33 [facility] Comment on above: Performed By: #### 2 93087 #### [facility],[address] [place] [address] MCHC 33 X10 3 Normal 32 - 36 [facility] Comment on above: Performed By: #### 2 06804 #### [facility],[address] [place] [address] 55573 MCV (RBC) [Entitic vol] 90 fL Normal 80 - 99 [facility] Comment on above: Performed By: #### 2 38022 #### [facility],[address] [place] [address] 02086 Cook # 0.50 x10EE3/UL Normal 0.20 - 1.00 [facility] Comment on above: Performed By: #### 2 24454 #### [facility],[address] [place] [address] 41816 MONOS % 5.5 % Normal 0.0 - 10.0 [facility] Comment on above: Performed By: #### 2 37923 #### [facility],[address] [place] [address] 39604 Morphology Raheem (Bld) [Interp] N/A Normal [facility] Comment on above: Result Comment: {CD] Performed By: #### 2 16595 #### [facility],[address] [place] [address] 62004 Neut # 7.20 x10EE3/UL High 1.50 - 7.10 [facility] Comment on above: Performed By: #### 2 04249 #### [facility],[address] [place] [address] 64169 Neutrophils/100 WBC (Bld) 72.7 % Normal 46.0 - 76.0 [facility] Comment on above: Performed By: #### 2 78342 #### [facility],[address] [place] [address] 50099 PLATELET 475 x10EE3/UL High 150 - 450 [facility] Comment on above: Performed By: #### 2 80071 #### [facility],[address] [place] [address] 11990 Platelet mean volume (Bld) [Entitic vol] 8.1 fL Normal 6.6 - 10.5 [facility] Comment on above: Result Comment: AUTO MATED DIFFERENTIAL Performed By: #### 2 01775 #### [facility],[address] [place] [address] 12057 RBC 3.54 x 10EE6/UL Low 4.10 - 5.30 [facility] Comment on above: Performed By: #### 2 25911 #### [facility],[address] [place] [address] 82987 WBC 9.9 x 10EE3/UL Normal 4.5 - 10.8 [facility] Comment on above: Performed By: #### 2 61741 #### [facility],[address] [place] [address] 29914 CPKon 07-09-2021 CPK 42 U/L Normal 26 - 192 [facility] Comment on above: Performed By: #### 2 92492 #### [facility],[address] [place] [address] 29871 HEPATIC FUNCTION PANELon Albumin [Mass/Vol] 2.9 g/dL Low 3.4 - 5.0 [facility] Comment on above: Performed By: #### 2 71360 #### [facility],[address] [place] [address] ALK PHOS 147 U/L High 46 - 116 [facility] Comment on above: Performed By: #### 2 81291 #### [facility],[address] [place] [address] ALT [Catalytic activity/Vol] 27 U/L Normal 14 - 59 [facility] Comment on above: Performed By: #### 2 21208 #### [facility],[address] [place] [address] AST [Catalytic activity/Vol] 20 U/L Normal 13 - 39 [facility] Comment on above: Performed By: #### 2 77409 #### [facility],[address] [place] [address] Bilirubin [Mass/Vol] 0.2 mg/dL Normal 0.2 - 1.0 [facility] Comment on above: Performed By: #### 2 96559 #### [facility],[address] [place] [address] Bilirubin.direct [Mass/Vol] 0.1 mg/dL Normal 0.0 - 0.2 [facility] Comment on above: Performed By: #### 2 23541 #### [facility],[address] [place], [place] [address] Hepatic function 2000 panel Normal [facility] Comment on above: Result Comment: HEPA TIC FUNCTION PROFILE Performed By: #### 2 74023 #### [facility],[address] [place], [place] [address] Protein [Mass/Vol] 8.4 g/dL High 6.4 - 8.2 [facility] Comment on above: Performed By: #### 2 08075 #### [facility],[address] [place] [address] 83659 SEDRATEon 07-09-2021 SEDRATE 116 mm/hr High 0 - 30 [facility] Comment on above: Performed By: #### 2 44746 #### [facility],[address] [place] [address] 25552 BMP with eGFRon 07-03-2021 AGE 55 years Normal [facility] Comment on above: Performed By: #### 2 75935 #### [facility],[address] [place] [address] 98708 Anion gap [Moles/Vol] 18 mmol/L Normal 10 - 20 [facility] Comment on above: Performed By: #### 2 42454 #### [facility],[address] [place] [address] 78455 BMP with eGFR Normal [facility] Comment on above: Result Comment: BASI C METABOLIC PANEL Performed By: #### 2 36392 #### [facility],[address] [place] [address] 42143 Calcium [Mass/Vol] 10.0 mg/dL Normal 8.5 - 10.1 [facility] Comment on above: Performed By: #### 2 02853 #### [facility],[address] [place] [address] 16309 Chloride [Moles/Vol] 100 mmol/L Normal 98 - 107 [facility] Comment on above: Performed By: #### 2 42441 #### [facility],[address] [place] [address] 54073 CO2 [Moles/Vol] 23.6 mmol/L Normal 21.0 - 32.0 [facility] Comment on above: Performed By: #### 2 14854 #### [facility],[address] [place] [address] 76371 Creatinine [Mass/Vol] 0.66 mg/dL Normal 0.55 - 1.02 [facility] Comment on above: Performed By: #### 2 34650 #### [facility],[address] [place] [address] 55489 GFR/1.73 sq M.predicted among non-blacks MDRD (S/P/Bld) [Vol rate/Area] mL/min/{1.73_m2} Normal 60 - 999 [facility] Comment on above: Performed By: #### 2 90497 #### [facility],[address] [place] [address] 50240 Result Comment: ACCO RDING TO THE NATIONAL KIDNEY DISEASE EDUCATION PROGRAM(NKDE), A NORMAL eGFR IS A VALUE GREATER THAN OR EQUAL TO 60 ML/MIN/1.73 SQ METERS. CHRONIC KIDNEY DISEASE: <60mL/MIN/1.73 SQ METERS KIDNEY FAILURE: <15mL/MIN/1.73 SQ METERS THIS TEST SHOULD ONLY BE USED FOR PATIENTS 18 YEARS OF AGE AND OLDER. Glucose [Mass/Vol] 114 mg/dL High 74 - 106 [facility] Comment on above: Performed By: #### 2 40338 #### [facility],[address] [place] [address] 35378 Potassium [Moles/Vol] 3.8 mmol/L Normal 3.5 - 5.1 [facility] Comment on above: Performed By: #### 2 18936 #### [facility],[address] [place] [address] 68938 Sodium [Moles/Vol] 138 mmol/L Normal 136 - 145 [facility] Comment on above: Performed By: #### 2 03324 #### [facility],[address] [place] [address] 62467 Urea nitrogen [Mass/Vol] 24 mg/dL High 7 - 18 [facility] Comment on above: Performed By: #### 2 54094 #### [facility],[address] [place] [address] 10123 C-REACTIVE PROTEINon 022 CRP 2.20 mg/dl High 0.00 - 0.90 [facility] Comment on above: Performed By: #### 2 87953 #### [facility],[address] [place] [address] CBC + DIFFon 07-03-2021 Baso # 0.10 x10EE3/UL Normal 0.00 - 0.10 [facility] Comment on above: Performed By: #### 2 79100 #### [facility],[address] [place] [address] 87200 Basophils/100 WBC (Bld) 0.6 % Normal 0.0 - 2.0 [facility] Comment on above: Performed By: #### 2 42157 #### [facility],[address] [place] [address] CBC + DIFF Normal [facility] Comment on above: Result Comment: CBC- COMPLETE BLOOD COUNT Performed By: #### 2 65264 #### [facility],[address] [place] [address] EO # 0.80 x10EE3/UL High 0.00 - 0.50 [facility] Comment on above: Performed By: #### 2 83556 #### [facility],[address] [place] [address] 59376 Eosinophils/100 WBC (Bld) 7.9 % High 0.0 - 7.0 [facility] Comment on above: Performed By: #### 2 27043 #### [facility],[address] [place], [place] [address] Erythrocyte distribution width (RBC) [Ratio] 17.2 % High 12.0 - 15.6 [facility] Comment on above: Performed By: #### 2 33556 #### [facility],[address] [place] [address] Hematocrit (Bld) [Volume fraction] 27.7 % Low 34.0 - 46.0 [facility] Comment on above: Performed By: #### 2 79858 #### [facility],[address] [place] [address] 98116 Hemoglobin (Bld) [Mass/Vol] 9.1 g/dL Low 12.0 - 16.0 [facility] Comment on above: Performed By: #### 2 87472 #### [place] [address] Lymph # 1.80 x10EE3/UL Normal 0.80 - 2.80 [facility] Comment on above: Performed By: #### 2 16135 #### [place] [address] Lymphocytes/100 WBC (Bld) 17.0 % Low 20.0 - 45.0 [facility] Comment on above: Performed By: #### 2 61789 #### [place] [address] MANUAL DIFF N/A Normal [facility] Comment on above: Performed By: #### 2 92378 #### [place] [address] MCH (RBC) [Entitic mass] 30 pg Normal 27 - 33 [facility] Comment on above: Performed By: #### 2 38087 #### [place] [address] MCHC 33 X10 3 Normal 32 - 36 [facility] Comment on above: Performed By: #### 2 31635 #### [place] [address] MCV (RBC) [Entitic vol] 89 fL Normal 80 - 99 [facility] Comment on above: Performed By: #### 2 27692 #### [place] [address] Cook # 0.60 x10EE3/UL Normal 0.20 - 1.00 [facility] Comment on above: Performed By: #### 2 01737 #### [place] [address] MONOS % 5.6 % Normal 0.0 - 10.0 [facility] Comment on above: Performed By: #### 2 87760 #### [facility],[address] [place] [address] Morphology Raheem (Bld) [Interp] N/A Normal [facility] Comment on above: Result Comment: {CD] Performed By: #### 2 73090 #### [facility],[address] [place] [address] Neut # 7.40 x10EE3/UL High 1.50 - 7.10 [facility] Comment on above: Performed By: #### 2 96340 #### [place] [address] Neutrophils/100 WBC (Bld) 68.9 % Normal 46.0 - 76.0 [facility] Comment on above: Performed By: #### 2 70962 #### [place] [address] PLATELET 476 x10EE3/UL High 150 - 450 [facility] Comment on above: Performed By: #### 2 65424 #### [place] [address] Platelet mean volume (Bld) [Entitic vol] 7.5 fL Normal 6.6 - 10.5 [facility] Comment on above: Result Comment: AUTO MATED DIFFERENTIAL Performed By: #### 2 74584 #### [facility],[address] [place], [place] [address] RBC 3.10 x 10EE6/UL Low 4.10 - 5.30 [facility] Comment on above: Performed By: #### 2 41273 #### [place] [address] WBC 10.7 x 10EE3/UL Normal 4.5 - 10.8 [facility] Comment on above: Performed By: #### 2 25161 #### [facility],[address] [place] [address] CPKon 07-03-2021 CPK 62 U/L Normal 26 - 192 [facility] Comment on above: Performed By: #### 2 19879 #### [facility],[address] [place] [address] 97608 HEPATIC FUNCTION PANELon Albumin [Mass/Vol] 2.7 g/dL Low 3.4 - 5.0 [facility] Comment on above: Performed By: #### 2 81861 #### [facility],[address] [place] [address] ALK PHOS 143 U/L High 46 - 116 [facility] Comment on above: Performed By: #### 2 62591 #### [facility],[address] [place], [place] [address] ALT [Catalytic activity/Vol] 25 U/L Normal 14 - 59 [facility] Comment on above: Performed By: #### 2 13166 #### [facility],[address] [place], [place] [address] AST [Catalytic activity/Vol] 21 U/L Normal 13 - 39 [facility] Comment on above: Performed By: #### 2 42075 #### [facility],[address] [place] [address] 01974 Bilirubin [Mass/Vol] 0.2 mg/dL Normal 0.2 - 1.0 [facility] Comment on above: Performed By: #### 2 46177 #### [facility],[address] [place] [address] 38638 Bilirubin.direct [Mass/Vol] 0.1 mg/dL Normal 0.0 - 0.2 [facility] Comment on above: Performed By: #### 2 32397 #### [facility],[address] [place] [address] 12650 Hepatic function 2000 panel Normal [facility] Comment on above: Result Comment: HEPA TIC FUNCTION PROFILE Performed By: #### 2 51729 #### [facility],[address] [place] [address] 29939 Protein [Mass/Vol] 8.0 g/dL Normal 6.4 - 8.2 [facility] Comment on above: Performed By: #### 2 70397 #### [facility],[address] [place] [address] 55857 SEDRATEon 07-03-2021 SEDRATE 116 mm/hr High 0 - 30 [facility] Comment on above: Performed By: #### 2 62346 #### [facility],[address] [place] [address] 01995 PRE-ALBUMIN [CCL]on 06-25-19 22 Prealbumin [Mass/Vol] 30 mg/dL Normal 17-36 [facility] Comment on above: Result Comment: [facility] [address] [place] [address] Danie Chaudhari III, M.D. [id number] Performed By: #### 2 22721 #### [address] [address] Prealbuminon 06-25-2021 Prealbumin [Mass/Vol] 30 mg/dL Normal 17-36 [facility] Comment on above: Performed By: #### P REALB #### [facility] Routine Lab [address] [place] [id number] BILIRUBIN DIRECTon 2 Bilirubin.direct [Mass/Vol] 0.1 mg/dL Normal 0.0 - 0.2 [facility] Comment on above: Performed By: #### 2 60876 #### [facility],[address] [place] [address] 74402 C-REACTIVE PROTEINon 022 CRP 3.80 mg/dl High 0.00 - 0.90 [facility] Comment on above: Performed By: #### 2 25961 #### [facility],[address] [place] [address] 60465 CBC + DIFFon 06-24-2021 Baso # 0.10 x10EE3/UL Normal 0.00 - 0.10 [facility] Comment on above: Performed By: #### 2 09932 #### [facility],[address] [place] [address] 49316 Basophils/100 WBC (Bld) 1.1 % Normal 0.0 - 2.0 [facility] Comment on above: Performed By: #### 2 49454 #### [facility],[address] [place] [address] CBC + DIFF Normal [facility] Comment on above: Result Comment: CBC- COMPLETE BLOOD COUNT Performed By: #### 2 89792 #### [facility],[address] [place] [address] EO # 0.40 x10EE3/UL Normal 0.00 - 0.50 [facility] Comment on above: Performed By: #### 2 87851 #### [facility],[address] [place] [address] 25769 Eosinophils/100 WBC (Bld) 3.3 % Normal 0.0 - 7.0 [facility] Comment on above: Performed By: #### 2 92311 #### [facility],[address] [place], [place] [address] Erythrocyte distribution width (RBC) [Ratio] 14.9 % Normal 12.0 - 15.6 [facility] Comment on above: Performed By: #### 2 09183 #### [facility],[address] [place] [address] Hematocrit (Bld) [Volume fraction] 25.4 % Low 34.0 - 46.0 [facility] Comment on above: Performed By: #### 2 38254 #### [facility],[address] [place] [address] 49789 Hemoglobin (Bld) [Mass/Vol] 8.4 g/dL Low 12.0 - 16.0 [facility] Comment on above: Performed By: #### 2 08530 #### [facility],[address] [place] [address] Lymph # 2.90 x10EE3/UL High 0.80 - 2.80 [facility] Comment on above: Performed By: #### 2 23216 #### [facility],[address] [place] [address] Lymphocytes/100 WBC (Bld) 24.6 % Normal 20.0 - 45.0 [facility] Comment on above: Performed By: #### 2 86411 #### [facility],[address] [place] [address] MANUAL DIFF N/A Normal [facility] Comment on above: Performed By: #### 2 76239 #### [facility],[address] [place] [address] MCH (RBC) [Entitic mass] 29 pg Normal 27 - 33 [facility] Comment on above: Performed By: #### 2 56200 #### [facility],[address] [place] [address] MCHC 33 X10 3 Normal 32 - 36 [facility] Comment on above: Performed By: #### 2 68579 #### [facility],[address] [place], [place] [address] MCV (RBC) [Entitic vol] 89 fL Normal 80 - 99 [facility] Comment on above: Performed By: #### 2 11380 #### [facility],[address] [place] [address] 22986 Cook # 0.60 x10EE3/UL Normal 0.20 - 1.00 [facility] Comment on above: Performed By: #### 2 98751 #### [facility],[address] [place] [address] 82885 MONOS % 5.0 % Normal 0.0 - 10.0 [facility] Comment on above: Performed By: #### 2 03508 #### [facility],[address] [place] [address] 12123 Morphology Raheem (Bld) [Interp] N/A Normal [facility] Comment on above: Result Comment: {CD] Performed By: #### 2 21481 #### [facility],[address] [place] [address] 78999 Neut # 7.80 x10EE3/UL High 1.50 - 7.10 [facility] Comment on above: Performed By: #### 2 42551 #### [facility],[address] [place] [address] 73154 Neutrophils/100 WBC (Bld) 66.0 % Normal 46.0 - 76.0 [facility] Comment on above: Performed By: #### 2 70374 #### [facility],[address] [place] [address] 84781 PLATELET 505 x10EE3/UL High 150 - 450 [facility] Comment on above: Performed By: #### 2 95286 #### [facility],[address] [place] [address] 35196 Platelet mean volume (Bld) [Entitic vol] 7.4 fL Normal 6.6 - 10.5 [facility] Comment on above: Result Comment: AUTO MATED DIFFERENTIAL Performed By: #### 2 48975 #### [facility],[address] [place] [address] 06611 RBC 2.87 x 10EE6/UL Low 4.10 - 5.30 [facility] Comment on above: Performed By: #### 2 95720 #### [facility],[address] [place] [address] 99449 WBC 11.7 x 10EE3/UL High 4.5 - 10.8 [facility] Comment on above: Performed By: #### 2 96410 #### [facility],[address] [place] [address] 12785 CMP with eGFRon 06-24-2021 AGE 55 years Normal [facility] Comment on above: Performed By: #### 2 16469 #### [facility],[address] [place] [address] 87422 Albumin [Mass/Vol] 2.5 g/dL Low 3.4 - 5.0 [facility] Comment on above: Performed By: #### 2 24675 #### [facility],[address] [place] [address] 93324 Albumin/Globulin [Mass ratio] 0.5 {ratio} Low 0.9 - 1.6 [facility] Comment on above: Performed By: #### 2 33155 #### [facility],[address] [place] [address] 10407 ALK PHOS 127 U/L High 46 - 116 [facility] Comment on above: Performed By: #### 2 98310 #### [facility],[address] [place] [address] 47997 ALT [Catalytic activity/Vol] 22 U/L Normal 14 - 59 [facility] Comment on above: Performed By: #### 2 13878 #### [facility],[address] [place] [address] 66492 Anion gap [Moles/Vol] 17 mmol/L Normal 10 - 20 [facility] Comment on above: Performed By: #### 2 41111 #### [facility],[address] [place] [address] 73209 AST [Catalytic activity/Vol] 26 U/L Normal 13 - 39 [facility] Comment on above: Performed By: #### 2 83731 #### [facility],[address] [place] [address] 94004 B/C RATIO 23 ratio Normal 0 - 30 [facility] Comment on above: Performed By: #### 2 08895 #### [facility],[address] [place] [address] 45139 Bilirubin [Mass/Vol] 0.2 mg/dL Normal 0.2 - 1.0 [facility] Comment on above: Performed By: #### 2 99936 #### [facility],[address] [place] [address] 98798 Calcium [Mass/Vol] 10.6 mg/dL High 8.5 - 10.1 [facility] Comment on above: Performed By: #### 2 40124 #### [facility],[address] [place] [address] 90613 Chloride [Moles/Vol] 102 mmol/L Normal 98 - 107 [facility] Comment on above: Performed By: #### 2 44607 #### [facility],[address] [place] [address] 23292 CMP with eGFR Normal [facility] Comment on above: Result Comment: COMP REHENSIVE METABOLIC PANEL Performed By: #### 2 11476 #### [facility],[address] [place] [address] 31269 CO2 [Moles/Vol] 25.1 mmol/L Normal 21.0 - 32.0 [facility] Comment on above: Performed By: #### 2 67603 #### [facility],[address] [place], [place] [address] Creatinine [Mass/Vol] 0.86 mg/dL Normal 0.55 - 1.02 [facility] Comment on above: Performed By: #### 2 50103 #### [facility],[address] [place] [address] 01628 GFR/1.73 sq M.predicted among non-blacks MDRD (S/P/Bld) [Vol rate/Area] mL/min/{1.73_m2} Normal 60 - 999 [facility] Comment on above: Performed By: #### 2 01796 #### [facility],[address] [place] [address] 37318 Result Comment: ACCO RDING TO THE NATIONAL KIDNEY DISEASE EDUCATION PROGRAM(NKDE), A NORMAL eGFR IS A VALUE GREATER THAN OR EQUAL TO 60 ML/MIN/1.73 SQ METERS. CHRONIC KIDNEY DISEASE: <60mL/MIN/1.73 SQ METERS KIDNEY FAILURE: <15mL/MIN/1.73 SQ METERS THIS TEST SHOULD ONLY BE USED FOR PATIENTS 18 YEARS OF AGE AND OLDER. Globulin (S) [Mass/Vol] 5.5 g/dL High 1.5 - 3.8 [facility] Comment on above: Performed By: #### 2 85332 #### [facility],[address] [place] [address] 32073 Glucose [Mass/Vol] 90 mg/dL Normal 74 - 106 [facility] Comment on above: Performed By: #### 2 61297 #### [facility],[address] [place] [address] 47425 Potassium [Moles/Vol] 4.3 mmol/L Normal 3.5 - 5.1 [facility] Comment on above: Performed By: #### 2 46072 #### [facility],[address] [place] [address] 36375 Protein [Mass/Vol] 8.0 g/dL Normal 6.4 - 8.2 [facility] Comment on above: Performed By: #### 2 45174 #### [facility],[address] [place] [address] 12624 Sodium [Moles/Vol] 140 mmol/L Normal 136 - 145 [facility] Comment on above: Performed By: #### 2 13044 #### [facility],[address] [place] [address] 69857 Urea nitrogen [Mass/Vol] 20 mg/dL High 7 - 18 [facility] Comment on above: Performed By: #### 2 32953 #### [facility],[address] [place] [address] 18770 CPKon 06-24-2021 CPK 324 U/L High 26 - 192 [facility] Comment on above: Performed By: #### 2 85578 #### [facility],[address] [place] [address] 12149 T4-FREE (FREE THYROXINE)on 0 06-24-2021 Free T4 [Mass/Vol] 0.39 ng/dL Low 0.76 - 1.46 [facility] Comment on above: Result Comment: P otential of falsely elevated results when biotin concentrations are > 10 ng/mL. Performed By: #### 2 61838 #### [facility],[address] [place] [address] TSHon 06-24-2021 TSH Qn 0.11 m[IU]/L Low 0.35 - 3.74 [facility] Comment on above: Performed By: #### 2 97288 #### [facility],[address] [place] [address] DISCH.SUMon 01-08-[address] Date of : [address] [place] [address] Unit Number: [id number] Discharge Summary Patient Status: [facility] Attending Doctor: Jason Blanchard DO Service Date: [...] Providers: Jason Blanchard DO [address] [place] [address] Follow up 12/19/20 at 1pm with Nora. Condition: Stable Disposition Home w/ Home Health Care Disclaimer This dictation was created using voice recognition (more content not included)... Normal [facility] BLOOD CULTUREon 01-04-2021 Bacteria identified Cx Nom (Bld) NO GROWTH AFTER 5 DAYS [facility] Comment on above: Order Comment: Jesusita s: M Performed By: #### L 200.43411 #### [facility] [address] [place], [place] [address] Bacteria identified Cx Nom (Bld) NO GROWTH AFTER 5 DAYS [facility] Comment on above: Order Comment: Jesusita s: M Performed By: #### L 550.42970 #### [facility] [address] [place] [address] 25633 URINE CULTUREon 01-01-2021 Bacteria identified Cx Nom (U) NO GROWTH AFTER 48 HOURS [facility] Comment on above: Performed By: #### L 200.49013 #### [facility] [address] [place] [address] BMPon 12-30-2020 Anion gap [Moles/Vol] 10 mmol/L Normal 5-16 [facility] Comment on above: Order Comment: Campu s: M Performed By: #### L 500.79138, L500.29885, L500.51735 ####[facility] [id number] [place], [place] [address]Ts# [phone] Calcium [Mass/Vol] 9.6 mg/dL Normal 8.5-10.5 [facility] Comment on above: Order Comment: Campu s: M Result Comment: NOTE NEW NORMAL RANGE DUE TO REAGENT CHANGE Performed By: #### L 500.58344, L500.56145, L500.05753 ####[facility] [id number] [place], [place] [address]Bj# [phone] Chloride [Moles/Vol] 102 mmol/L Normal 98-107 [facility] Comment on above: Order Comment: Campu s: M Performed By: #### L 500.86013, L500.75873, L500.45202 ####[facility] [id number] [place], [place] [address]Gz# [phone] CO2 [Moles/Vol] 22.0 mmol/L Normal 21-32 [facility] Comment on above: Order Comment: Campu s: M Performed By: #### L 500.80149, L500.96742, L500.48674 ####[facility] [id number] [place], [place] [address]Hg# [phone] Creatinine [Mass/Vol] 0.44 mg/dL Low 0.510-0.95 0 [facility] Comment on above: Order Comment: Campu s: M Result Comment: Palak ents receiving either N-Acetylcysteine (NAC) or Metamizole prior to venipuncture, may have falsely depressed results. Performed By: #### L 500.90094, L500.57697, L500.35573 ####[facility] [id number] [place], [place] [address]We# [phone] Glucose [Mass/Vol] 273 mg/dL High 70-100 [facility] Comment on above: Order Comment: Campu s: M Result Comment: 70-1 00- Normal Fasting; 100-125 Impaired Fasting; greater than 126 on more than one result- Diabetes. ADA guidelines. Results may be falsely elevated after the administration of Sulfapyridine. Results may be falsely depressed after the administration of Sulfasalazine. Performed By: #### L 500.43147, L500.94883, L500.70826 ####[facility] [id number] [place], [place] [address]Vb# [phone] Potassium [Moles/Vol] 3.6 mmol/L Normal 3.5-5.1 [facility] Comment on above: Order Comment: Campu s: M Performed By: #### L 500.09208, L500.07175, L500.92216 ####[facility] [id number] [place], [place] [address]Gu# [phone] Sodium [Moles/Vol] 134 mmol/L Low 136-145 [facility] Comment on above: Order Comment: Campu s: M Performed By: #### L 500.28444, L500.95902, L500.93896 ####[facility] [id number] [place], [place] [address]Xv# [phone] Urea nitrogen [Mass/Vol] 25 mg/dL Normal 7-26 [facility] Comment on above: Order Comment: Campu s: M Performed By: #### L 500.46085, L500.16395, L500.97888 ####[facility] [id number] [place], [place] [address]Re# [phone] Urea nitrogen/Creatinin e [Mass ratio] 57 mg/mg High 15-24 [facility] Comment on above: Order Comment: Campu s: M Performed By: #### L 500.97593, L500.21648, L500.73642 ####[facility] [id number] [place], [place] [address]Sb# [phone] CBC W/DIFFon 12-30-2020 BASO ABS 0.10 K/CU MM Normal 0-0.2 [facility] Comment on above: Order Comment: Campu s: M Performed By: #### L 200.32115 ####[place] [address]Ph# [phone] Basophils/100 WBC (Bld) 0.7 % Normal 0-2 [facility] Comment on above: Order Comment: Campu s: M Performed By: #### L 200.16728 ####[address] [address]Gl# [phone] EOS ABS 0.20 K/CU MM Normal 0-0.5 [facility] Comment on above: Order Comment: Campu s: M Performed By: #### L 200.45050 ####[address] [address]Ci# [phone] Eosinophils/100 WBC (Bld) 2.4 % Normal 0-5 [facility] Comment on above: Order Comment: Campu s: M Performed By: #### L 200.76687 ####[address] [address]Vr# [phone] Erythrocyte distribution width (RBC) [Ratio] 12.2 % Normal 11-14.5 [facility] Comment on above: Order Comment: Campu s: M Performed By: #### L 200.70373 ####[facility] [id number] [place] [address]Rg# [phone] Hematocrit (Bld) [Volume fraction] 41.4 % Normal 35.0-47.0 [facility] Comment on above: Order Comment: Campu s: M Performed By: #### L 200.64340 ####[facility] [id number] [place], [place] [address]Ph# [phone] Hemoglobin (Bld) [Mass/Vol] 14.1 g/dL Normal 11.5-15.5 [facility] Comment on above: Order Comment: Campu s: M Performed By: #### L 200.33931 ####[facility] [id number] [place] [address]Dg# [phone] IMMATR GRAN ABS 0.10 K/CU MM Normal Less than 2 [facility] Comment on above: Order Comment: Campu s: M Performed By: #### L 200.02698 ####[place] [address]Ph# [phone] IMMATURE GRAN % 0.8 % Normal Less than 2 [facility] Comment on above: Order Comment: Campu s: M Performed By: #### L 200.37016 ####[place] [address]Ph# [phone] LYMPH ABS 2.00 K/CU MM Normal 0.9-4.4 [facility] Comment on above: Order Comment: Campu s: M Performed By: #### L 200.47860 ####[place] [address]Ph# [phone] Lymphocytes/100 WBC (Bld) 26.3 % Normal 20-40 [facility] Comment on above: Order Comment: Campu s: M Performed By: #### L 200.27676 ####[facility] [id number] [place], [place] [address]Ph# [phone] MCHC (RBC) [Mass/Vol] 34.1 g/dL Normal 32.0-36.0 [facility] Comment on above: Order Comment: Campu s: M Performed By: #### L 200.33796 ####[facility] [id number] [place], [place] [address]Ph# [phone] MCV (RBC) [Entitic vol] 90.6 fL Normal 80.0-99.0 [facility] Comment on above: Order Comment: Campu s: M Performed By: #### L 200.75399 ####[facility] [id number] [place], [place] [address]Qt# [phone] MONO ABS 1.00 K/CU MM Normal 0.1-1.1 [facility] Comment on above: Order Comment: Campu s: M Performed By: #### L 200.55298 ####[facility] [id number] [place], [place] [address]Ph# [phone] Monocytes/100 WBC (Bld) 12.4 % High 2-10 [facility] Comment on above: Order Comment: Campu s: M Performed By: #### L 200.88602 ####[place] [address]Ph# [phone] NEUTROPHIL ABS 4.40 K/CU MM Normal 2.0-8.3 [facility] Comment on above: Order Comment: Campu s: M Performed By: #### L 200.98435 ####[facility] [id number] [place] [address]Kk# [phone] Neutrophils/100 WBC (Bld) 57.4 % Normal 45-75 [facility] Comment on above: Order Comment: Campu s: M Performed By: #### L 200.58845 ####[facility] [id number] [place] [address]Ex# [phone] Nucleated RBC/100 WBC (Bld) [Ratio] 0.0 % Normal Less than 1 [facility] Comment on above: Order Comment: Campu s: M Performed By: #### L 200.09879 ####[facility] [id number] [place] [address]To# [phone] Platelet mean volume (Bld) [Entitic vol] 9.9 fL Normal 9.4-12.4 [facility] Comment on above: Order Comment: Campu s: M Performed By: #### L 200.94023 ####[facility] [id number] [place], [place] [address]Ph# [phone] PLT 226 K/CU MM Normal 150-450 [facility] Comment on above: Order Comment: Campu s: M Performed By: #### L 200.79649 ####[facility] [id number] [place], [place] [address]Ap# [phone] RBC 4.57 M/CU MM Normal 3.90-5.30 [facility] Comment on above: Order Comment: Campu s: M Performed By: #### L 200.64271 ####[facility] [id number] [place], [place] [address]Ld# [phone] WBC 7.6 K/CUMM Normal 4.5-11.0 [facility] Comment on above: Order Comment: Campu s: M Performed By: #### L 200.79606 ####[facility] [id number] [place], [place] [address]Ta# [phone] CT [facility]/PEL W IV CONTRAST [...] MERCADO MD Signed By: GRISELDA MERCADO MD [facility] EKGon 12-30-2020 Electrocardiogram Procedure Date and T [...] VU M.D.FACC ____ Danae DDandT: 12/30/201723 TDandT: [facility] PATIENT NAME: PHYLICIA FALK [facility] Dr. Schmid MEDICAL REC #: [id number] [place] [address] ADMIT DATE: DISCHARGE DATE: ATTENDING PHY: Beatriz Arreola,Emergency Physi ELECTROCARDIOGRAM REPORT CLB cc: [facility] PATIENT NAME: PHYLICIA FALK [facility] Dr[address] Schmid MEDICAL REC #: [id number] [place] [address] ADMIT DATE: DISCHARGE DATE: ATTENDING PHY: Beatriz Arreola,Emergency Physi ELECTROCARDIOGRAM REPORT [facility] Yessi 12-30-2020 EMERGENCY PHYSICIAN REPORT This is a preliminary report only, as the practitioner review and authentication has not occurred. [facility] ER PHYSICIAN ASSESSMENT RECORDS : Discharge Report Event Time: 12/30/2020 21:19 : FlexChartData Event Time: 12/30/2020 21:50 Status: Signed [facility] Phylicia Falk [[id number]] Attending Physician 55 / F / 1965 Chart (V2b) Chart created at 12/30/2020 21:14 by Raffaele Reyes Chart closed at 12/30/2020 21:18 Entry in Emergency Department at 12/30/2020 12:45, departure at 12/30/2020 21:43 Patient Name: Phylicia Falk Record Number: [id number] Date: 12/30/2020 21:14 Entered Department at: 12/30/2020 [...] IV antibiotics. She states that for the [facility] PATIENT NAME: PHYLICIA FALK L [address] [facility] [address] Schmid MEDICAL REC #: [id number] [place] [address] EMERGENCY DEPARTMENT REPORT EMERGENCY DEPARTMENT PHYSICIAN last [...] and Dry Psychological: Mood/Affect Normal and Normal [facility] PATIENT NAME: PHYLICIA FALK [address] [facility] [address] Schmid MEDICAL REC #: [id number] [place] [address] EMERGENCY DEPARTMENT REPORT EMERGENCY DEPARTMENT PHYSICIAN Memory/Judgment [...] Discharged *Home. (more content not included)... Normal [facility] GFR ESTon 12-30-2020 IF AMER Greater than 60 Normal [facility] Comment on above: Order Comment: Campu s: M Performed By: #### L 500.27739, L500.29326, L500.23885 ####[facility] [id number] [place], [place] [address]Wi# [phone] IF non-AFR AMER Greater than 60 Normal [facility] Comment on above: Order Comment: Campu s: M Performed By: #### L 500.05659, L500.65158, L500.87821 ####[facility] [id number] [place], [place] [address]Jo# [phone] LACTATE BLOODon 12-30-2020 LACTATE BLOOD 1.55 MMOL/L Normal 0.40-2.00 [facility] Comment on above: Order Comment: Campu s: M Performed By: #### L 550.73328 #### [facility] [address] [place] [address] LIVERon 12-30-2020 Albumin [Mass/Vol] 3.5 g/dL Normal 3.2-5.0 [facility] Comment on above: Order Comment: Campu s: M Performed By: #### L 550.48005 #### [facility] [address] [place] [address] Albumin/Globulin [Mass ratio] 1.0 {ratio} Normal 0.8-2.0 [facility] Comment on above: Order Comment: Campu s: M Performed By: #### L 550.07626 #### [facility] [address] [place] [address] ALK PHOS 103 U/L Normal 45-117 [facility] Comment on above: Order Comment: Campu s: M Performed By: #### L 550.90578 #### [facility] [address] [place] [address] ALT [Catalytic activity/Vol] 31 U/L Normal 13-61 [facility] Comment on above: Order Comment: Campu s: M Result Comment: RESU LTS MAY BE FALSELY DEPRESSED AFTER THE ADMINISTRATION OF SULFASALAZINE AND/OR SULFAPYRIDINE. Performed By: #### L 550.92868 #### [facility] [address] [place] [address] AST [Catalytic activity/Vol] 16 U/L Normal 8-34 [facility] Comment on above: Order Comment: Campu s: M Result Comment: RESU LTS MAY BE FALSELY DEPRESSED AFTER THE ADMINISTRATION OF SULFASALAZINE AND/OR SULFAPYRIDINE. Performed By: #### L 550.94895 #### [facility] LABORATORY [address] [place], [place] [id number] BILI DIRECT 0.3 MG/DL Normal 0.00-0.36 [facility] Comment on above: Order Comment: Campu s: M Result Comment: NOTE NEW NORMAL RANGE DUE TO REAGENT CHANGE Performed By: #### L 550.32877 #### [facility] [address] [place] [address] BILI TOTAL 0.90 MG/DL Normal 0.2-1.0 [facility] Comment on above: Order Comment: Ruiu s: M Performed By: #### L 550.45782 #### [facility] [address] [place], [place] [address] Globulin (S) [Mass/Vol] 3.6 g/dL Normal 2.2-4.2 [facility] Comment on above: Order Comment: Campu s: M Performed By: #### L 550.60190 #### [facility] [address] [place] [address] Protein [Mass/Vol] 7.1 g/dL Normal 6.0-8.5 [facility] Comment on above: Order Comment: Campu s: M Performed By: #### L 550.37237 #### [facility] [address] [place], [place] [id number] PTon 12-30-2020 INR Coag (PPP) [Relative time] 1.02 {INR} Normal 0.9-1.1 [facility] Comment on above: Order Comment: Ruiu s: M Result Comment: Jan mmended PT INR therapeutic range for terminal gauger and prophylactic therapy is 2.0 - 3.0. For heart valve and shunt patients the range is 2.5 - 3.5. Performed By: #### L 300.62898, L300.07528 #### [facility] [address] [place] [address] 27091 PTS 10.9 SECONDS Normal 9.5-12.0 [facility] Comment on above: Order Comment: Ruiu s: M Performed By: #### L 300.13072, L300.16057 #### [facility] [address] [place] [address] 75995 PTTon 12-30-2020 aPTT Coag (Bld) [Time] 51.1 s High 22.0-31.5 [facility] Comment on above: Order Comment: Jesusita [...] using the PTT. Performed By: #### L 300.66080, L300.17421 #### [facility] [address] [place] [address] [id number] 12-30-2020 SARS-CoV-2 (COVID-19) RNA LAUREN+probe Ql (Unsp spec) Negative Invalid Interpretation Code Negative [facility] Comment on above: Order Comment: Jesusita [...] performed by PCR. Performed By: #### L 200.26538 #### [facility] [address] [place] [address] TROPONIN Ion 12-30-2020 Troponin I.cardiac [Mass/Vol] 2.5 ng/mL Normal 0-34 [facility] Comment on above: Order Comment: Jesusita s: M Result Comment: NOTE NEW NORMAL RANGE DUE TO REAGENT CHANGE This assay uses different antibodies than our current assay, and assays, even by the same silver service waiter may recognize different regions of the antibody and cannot be used interchangeably. Expect results of this assay to run higher than the previous assay. Performed By: #### L 550.96799 #### [facility] [address] [place] [address] UA COMPLETEon 12-30-2020 UA LK ESTERASE 75 Normal NEGATIVE [facility] Comment on above: Order Comment: Campu s: M Performed By: #### L 550.72894 #### [facility] [address] [place] [address] UA WBC 19 WBC/HPF High 0-5 [facility] Comment on above: Order Comment: Campu s: M Performed By: #### L 550.26398 #### [facility] [address] [place] [address] Color (U) Kyara Normal [facility] Comment on above: Order Comment: Campu s: M Performed By: #### L 550.48303 #### [facility] [address] [place] [address] 31909 Glucose (U) [Mass/Vol] 500 mg/dL Normal NORMAL [facility] Comment on above: Order Comment: Campu s: M Performed By: #### L 550.68962 #### [facility] [place] [address] Mucus Ql (Urine sed) 2+ Normal NEGATIVE [facility] Comment on above: Order Comment: Campu s: M Performed By: #### L 550.96438 #### [facility] [place] [address] SQUAMOUS EPIS 5 EPI/HPF Normal 0-5 [facility] Comment on above: Order Comment: Campu s: M Performed By: #### L 550.89353 #### [facility] [address] [place] [address] UA APPEARANCE Hazy Normal CLEAR [facility] Comment on above: Order Comment: Campu s: M Performed By: #### L 550.42117 #### [facility] [address] [place] [address] UA BACTERIA TRACE Normal NONE [facility] Comment on above: Order Comment: Campu s: M Performed By: #### L 550.20445 #### [facility] [address] [place] [address] UA BILIRUBIN Negative Normal NEGATIVE [facility] Comment on above: Order Comment: Campu s: M Performed By: #### L 550.13086 #### [facility] [address] [place] [address] UA BLOOD Negative Normal NEGATIVE [facility] Comment on above: Order Comment: Campu s: M Performed By: #### L 550.43755 #### [facility] [address] [place], [place] [address] UA KETONE 80 Normal NEGATIVE [facility] Comment on above: Order Comment: Campu s: M Performed By: #### L 550.25930 #### [facility] [address] [place], [place] [address] UA NITRITE Negative Normal NEGATIVE [facility] Comment on above: Order Comment: Campu s: M Performed By: #### L 550.76712 #### [facility] [address] [place] [address]861 UA PH 5.0 Normal 5-6 [facility] Comment on above: Order Comment: Campu s: M Performed By: #### L 550.21246 #### [facility] [address] [place] [address]20 UA PROTEIN 30 Normal NEGATIVE [facility] Comment on above: Order Comment: Campu s: M Performed By: #### L 550.13562 #### [facility] [address] [place] [address] UA RBC 5 RBC/HPF High 0-3 [facility] Comment on above: Order Comment: Campu s: M Performed By: #### L 550.78776 #### [facility] [address] [place] [address] 19156 UA SPEC GRAV 1.036 Normal 1.005-1.03 0 [facility] Comment on above: Order Comment: Campu s: M Performed By: #### L 550.72533 #### [facility] [address] [place] [address] 74996 UA UROBILINOGEN Negative Normal NORMAL [facility] Comment on above: Order Comment: Campu s: M Performed By: #### L 550.43621 #### [facility] [address] [place] [address] GLUCOSE METERon 12-09-2020 Glucose [Mass/Vol] 259 mg/dL High 85-125 [facility] ANAER CULTUREon 12-07-2020 ANAER CULTURE RESULT NO GROWTH OF ANAEROBES Normal [facility] Comment on above: Order Comment: Campu s: M Performed By: #### L 550.04241 #### [facility] [address] [place] [address] CBCon 12-06-2020 Erythrocyte distribution width (RBC) [Ratio] 11.9 % Normal 11-14.5 [facility] Comment on above: Order Comment: Campu s: M Performed By: #### L 200.01196 #### [facility] [address] [place] [address] Hematocrit (Bld) [Volume fraction] 39.2 % Normal 35.0-47.0 [facility] Comment on above: Order Comment: Campu s: M Performed By: #### L 200.58315 #### [facility] [address] [place] [address] Hemoglobin (Bld) [Mass/Vol] 12.9 g/dL Normal 11.5-15.5 [facility] Comment on above: Order Comment: Campu s: M Performed By: #### L 200.80988 #### [facility] [address] [place], [place] [address] MCHC (RBC) [Mass/Vol] 32.9 g/dL Normal 32.0-36.0 [facility] Comment on above: Order Comment: Campu s: M Performed By: #### L 200.74672 #### [facility] [address] [place], [place] [address] MCV (RBC) [Entitic vol] 94.2 fL Normal 80.0-99.0 [facility] Comment on above: Order Comment: Campu s: M Performed By: #### L 200.60966 #### [facility] [address] [place] [address] Nucleated RBC/100 WBC (Bld) [Ratio] 0.0 % Normal Less than 1 [facility] Comment on above: Order Comment: Campu s: M Performed By: #### L 200.94781 #### [facility] [address] [place] [address] Platelet mean volume (Bld) [Entitic vol] 9.8 fL Normal 9.4-12.4 [facility] Comment on above: Order Comment: Campu s: M Performed By: #### L 200.42980 #### [facility] [address] [place], [place] [address] PLT 222 K/CU MM Normal 150-450 [facility] Comment on above: Order Comment: Campu s: M Performed By: #### L 200.53377 #### [facility] [address] [place], [place] [address] RBC 4.16 M/CU MM Normal 3.90-5.30 [facility] Comment on above: Order Comment: Campu s: M Performed By: #### L 200.41313 #### [facility] [address] [place], [place] [address] WBC 8.3 K/CUMM Normal 4.5-11.0 [facility] Comment on above: Order Comment: Campu s: M Performed By: #### L 200.39853 #### [facility] [address] [phone] GLUCOSE METERon 12-06-2020 Glucose [Mass/Vol] 290 mg/dL High 85-125 [facility] Glucose [Mass/Vol] 255 mg/dL High 85-125 [facility] Glucose [Mass/Vol] 258 mg/dL High 85-125 [facility] PROG.NOTEon 12-06-2020 PROG.NOTE [facility] Patient Name[facility]ALK [address] [facility] Date [address] [facility] [address] [address] Unit Number: [id number] Progress Note-Physician Patient Status: REG SDC Attending [...] 12/05 12/05 12/05 12/04 12/04 0614 0614 [id number] [id number] Chemistry Sodium (136 - 145 [...] Time Addison Paez Verified/Reviewed by 12/06/20 0952 [facility] Progress Note-Physician [facility] PROG.ORTHOon 07-16-2021 PROG.[facility] Patient Name: PHYLICIA FALK [address] Date of : [address] [address] Unit Number: [id number] Progress Note-Ortho Patient Status: REG SDC Attending Doctor: Jason Blanhcard DO Service Date: 12/06/20 0550 Progress Note [...] Diagnostic Data Lab 24hr (CBC/BMP [facility]) 12/05/20 2153: Whole Bld Glucose 258 H [...] Verified/Reviewed by 12/06/20 0557 Jason Blanchard DO [facility] Progress Note-Ortho Normal [facility] SURG TISSUEon 12-06-2020 SURG TISSUE GRAM STAIN NO WBC'S SEEN NO ORGANISMS SEEN ORGANISM 1: STREPTOCOCCUS AGALACTIAE GRP.B QUANTITATION FEW STREPTOCOCCUS AGALACTIAE GRP.B: REACTION AMPICILLIN 0.12 S CEFEPIME <0.25 S CHLORAMPHENICOL 4 S CLINDAMYCIN >0.5 R PENICILLIN 0.06 S TETRACYCLINE >4 R LEVOFLOXACIN 0.5 S Normal [facility] Comment on above: Order Comment: Jesusita s: M Performed By: #### L 200.14363 #### [facility] [address] [place] [address] BMPon 12-05-2020 Anion gap [Moles/Vol] 7 mmol/L Normal - [facility] Comment on above: Order Comment: Jesusita s: M Performed By: #### L 550.43511 #### [facility] [address] [place] [address] Calcium [Mass/Vol] 8.8 mg/dL Normal 8.5-10.5 [facility] Comment on above: Order Comment: Campu s: M Result Comment: NOTE NEW NORMAL RANGE DUE TO REAGENT CHANGE Performed By: #### L 550.44701 #### [facility] [address] [place] [address] Chloride [Moles/Vol] 105 mmol/L Normal 98-107 [facility] Comment on above: Order Comment: Campu s: M Performed By: #### L 550.62397 #### [facility] [address] [place] [address] CO2 [Moles/Vol] 26.0 mmol/L Normal 21-32 [facility] Comment on above: Order Comment: Campu s: M Performed By: #### L 550.22065 #### [facility] [address] [place] [address] Creatinine [Mass/Vol] 0.45 mg/dL Low 0.510-0.95 0 [facility] Comment on above: Order Comment: Campu s: M Result Comment: Palak ents receiving either N-Acetylcysteine (NAC) or Metamizole prior to venipuncture, may have falsely depressed results. Performed By: #### L 550.02322 #### [facility] [address] [place] [address] Glucose [Mass/Vol] 244 mg/dL High 70-100 [facility] Comment on above: Order Comment: Campu s: M Result Comment: 70-1 00- Normal Fasting; 100-125 Impaired Fasting; greater than 126 on more than one result- Diabetes. ADA guidelines. Results may be falsely elevated after the administration of Sulfapyridine. Results may be falsely depressed after the administration of Sulfasalazine. Performed By: #### L 550.33196 #### [facility] [address] [place], [place] [address] Potassium [Moles/Vol] 3.9 mmol/L Normal 3.5-5.1 [facility] Comment on above: Order Comment: Campu s: M Performed By: #### L 550.30424 #### [facility] [address] [place] [address] Sodium [Moles/Vol] 138 mmol/L Normal 136-145 [facility] Comment on above: Order Comment: Campu s: M Performed By: #### L 550.22950 #### [facility] [address] [place] [address] Urea nitrogen [Mass/Vol] 21 mg/dL Normal 7-26 [facility] Comment on above: Order Comment: Campu s: M Performed By: #### L 550.89719 #### [facility] [address] [place] [address] Urea nitrogen/Creatinin e [Mass ratio] 47 mg/mg High 15-24 [facility] Comment on above: Order Comment: Campu s: M Performed By: #### L 550.18703 #### [facility] [address] [place] [address] CBCon 12-05-2020 Erythrocyte distribution width (RBC) [Ratio] 12.1 % Normal 11-14.5 [facility] Comment on above: Order Comment: Campu s: M Performed By: #### L 200.49772 #### [facility] [address] [place] [address] Hematocrit (Bld) [Volume fraction] 38.1 % Normal 35.0-47.0 [facility] Comment on above: Order Comment: Campu s: M Performed By: #### L 200.40955 #### [facility] [address] [place] [address] 94994 Hemoglobin (Bld) [Mass/Vol] 12.6 g/dL Normal 11.5-15.5 [facility] Comment on above: Order Comment: Campu s: M Performed By: #### L 200.85093 #### [facility] [address] [place] [address] MCHC (RBC) [Mass/Vol] 33.1 g/dL Normal 32.0-36.0 [facility] Comment on above: Order Comment: Campu s: M Performed By: #### L 200.38840 #### [facility] [address] [place] [address] MCV (RBC) [Entitic vol] 93.6 fL Normal 80.0-99.0 [facility] Comment on above: Order Comment: Campu s: M Performed By: #### L 200.27304 #### [facility] [address] [place] [address] Nucleated RBC/100 WBC (Bld) [Ratio] 0.0 % Normal Less than 1 [facility] Comment on above: Order Comment: Campu s: M Performed By: #### L 200.42281 #### [facility] [address] [place] [address] Platelet mean volume (Bld) [Entitic vol] 9.7 fL Normal 9.4-12.4 [facility] Comment on above: Order Comment: Campu s: M Performed By: #### L 200.17026 #### [facility] [address] [place] [address] PLT 219 K/CU MM Normal 150-450 [facility] Comment on above: Order Comment: Campu s: M Performed By: #### L 200.02826 #### [facility] [address] [place] [address] RBC 4.07 M/CU MM Normal 3.90-5.30 [facility] Comment on above: Order Comment: Campu s: M Performed By: #### L 200.26258 #### [facility] [address] [place] [address] WBC 7.8 K/CUMM Normal 4.5-11.0 [facility] Comment on above: Order Comment: Ruiu s: M Performed By: #### L 200.70145 #### [facility] [address] [place] [address] Gabriel 12-05-2020 FERR 227.0 NG/ML Normal 8.0-307.0 [facility] Comment on above: Order Comment: Campu s: M Performed By: #### L 550.40902 #### [facility] [address] [place] [address] 68161 GFR ESTon 12-05-2020 IF AMER Greater than 60 Normal [facility] Comment on above: Order Comment: Campu s: M Performed By: #### L 550.43691 #### [facility] [address] [place] [address] 85203 IF non-AFR AMER Greater than 60 Normal [facility] Comment on above: Order Comment: Campu s: M Performed By: #### L 550.13109 #### [facility] [address] [place] [address] GLUCOSE METERon 12-05-2020 Glucose [Mass/Vol] 237 mg/dL High 85-125 [facility] Glucose [Mass/Vol] 260 mg/dL High 85-125 [facility] Glucose [Mass/Vol] 225 mg/dL High 85-125 [facility] [Mass/Vol] 274 mg/dL High 85-125 [facility] HGB A1C GLYCOHBon 12-05-2020 HbA1c (Bld) [Mass fraction] 12.2 % High 4.3-6.0 [facility] Comment on above: Order Comment: Campu s: M Performed By: #### L 200.10837 #### [facility] [address] [place] [address] IRON PANELon 12-05-2020 Iron [Mass/Vol] 88 ug/dL Normal 50-170 [facility] Comment on above: Order Comment: Jesusita s: M Result Comment: Palak ents treated with metal-binding drugs (e.g.deferoxamine) may have depressed iron values, as chelated iron may not properly react in the Siemens iron assay. Performed By: #### L 550.35678 #### [facility] [address] [place] [address] IRON SAT 25 % Normal 22-44 [facility] Comment on above: Order Comment: Jesusita s: M Performed By: #### L 550.26309 #### [facility] [address] [place] [address] TIBC 351 UG/DL Normal 221-481 [facility] Comment on above: Order Comment: Jesusita s: M Performed By: #### L 550.11065 #### [facility] [address] [place] [address] PROG.NOTEon 12-05-2020 PROG.NOTE [facility] Patient Name: PHYLICIA FALK [address] [place] [address] Date of : [address] [address] Unit Number: [id number] Progress Note-Physician Patient Status: REG [facility] Attending Doctor: Jason Blanchard DO Service Date: [...] 12/05 12/05 12/05 12/04 12/04 0614 0614 0549 [id number] Chemistry Sodium (136 - 145 MMOL/L) 138 [...] Time Addison Paez Verified/Reviewed by 12/05/20 0931 [facility] Progress Note-Physician [facility] PROG.ORTHOon 12-05-2020 PROG.ORTHO [facility] Patient Name: PHYLICIA FALK [address] [employer] Date of : [address] [address] Unit Number: [id number] Progress Note-Ortho Patient Status: REG [facility] Attending Doctor: Jason Blanchard DO Service Date: [...] Verified/Reviewed by 12/05/2039 Jason Blanchard DO Normal [facility] Progress Note-Ortho Normal [facility] BMP 12-04-2020 Anion gap [Moles/Vol] 7 mmol/L Normal 5-16 [facility] Comment on above: Order Comment: Campu s: M Performed By: #### L 500.67976, L500.67919 #### [facility] [address] [place] [address] Calcium [Mass/Vol] 9.5 mg/dL Normal 8.5-10.5 [facility] Comment on above: Order Comment: Campu s: M Result Comment: NOTE NEW NORMAL RANGE DUE TO REAGENT CHANGE Performed By: #### L 500.09046, L500.11595 #### [facility] [address] [place] [address] Chloride [Moles/Vol] 105 mmol/L Normal 98-107 [facility] Comment on above: Order Comment: Campu s: M Performed By: #### L 500.39787, L500.69314 #### [facility] [place] [address] CO2 [Moles/Vol] 24.0 mmol/L Normal 21-32 [facility] Comment on above: Order Comment: Campu s: M Performed By: #### L 500.62306, L500.89452 #### [facility] [place] [address] Creatinine [Mass/Vol] 0.56 mg/dL Normal 0.510-0.95 0 [facility] Comment on above: Order Comment: Campu s: M Result Comment: Palak ents receiving either N-Acetylcysteine (NAC) or Metamizole prior to venipuncture, may have falsely depressed results. Performed By: #### L 500.52296, L500.22696 #### [facility] [address] [place] [address] Glucose [Mass/Vol] 293 mg/dL High 70-100 [facility] Comment on above: Order Comment: Campu s: M Result Comment: 70-1 00- Normal Fasting; 100-125 Impaired Fasting; greater than 126 on more than one result- Diabetes. ADA guidelines. Results may be falsely elevated after the administration of Sulfapyridine. Results may be falsely depressed after the administration of Sulfasalazine. Performed By: #### L 500.34524, L5.17062 #### [facility] [address] [place] [address] Potassium [Moles/Vol] 4.4 mmol/L Normal 3.5-5.1 [facility] Comment on above: Order Comment: Campu s: M Performed By: #### L 500.81843, L5.00783 #### [facility] [address] [place] [address] Sodium [Moles/Vol] 136 mmol/L Normal 136-145 [facility] Comment on above: Order Comment: Campu s: M Performed By: #### L 500.08966, L500.58671 #### [facility] [address] [place] [address] 97824 Urea nitrogen [Mass/Vol] 30 mg/dL High 7-26 [facility] Comment on above: Order Comment: Campu s: M Performed By: #### L 500.98541, L500.77811 #### [facility] [address] [place], [place] [address] Urea nitrogen/Creatinin e [Mass ratio] 54 mg/mg High 15-24 [facility] Comment on above: Order Comment: Campu s: M Performed By: #### L 500.60768, L500.91187 #### [facility] [address] [place] [address] CBCon 12-04-2020 Erythrocyte distribution width (RBC) [Ratio] 11.9 % Normal 11-14.5 [facility] Comment on above: Order Comment: Campu s: M Performed By: #### L 200.47221 #### [facility] [address] [place] [address] Hematocrit (Bld) [Volume fraction] 42.4 % Normal 35.0-47.0 [facility] Comment on above: Order Comment: Campu s: M Performed By: #### L [id number] #### [facility] [address] [place] [address] Hemoglobin (Bld) [Mass/Vol] 14.4 g/dL Normal 11.5-15.5 [facility] Comment on above: Order Comment: Campu s: M Performed By: #### L [id number] #### [facility] [address] [place] [address] MCHC (RBC) [Mass/Vol] 34.0 g/dL Normal 32.0-36.0 [facility] Comment on above: Order Comment: Campu s: M Performed By: #### L [id number] #### [facility] [address] [place] [address] MCV (RBC) [Entitic vol] 91.0 fL Normal 80.0-99.0 [facility] Comment on above: Order Comment: Campu s: M Performed By: #### L [id number] #### [facility] [address] [place] [address] Nucleated RBC/100 WBC (Bld) [Ratio] 0.0 % Normal Less than 1 [facility] Comment on above: Order Comment: Campu s: M Performed By: #### L [id number] #### [facility] [address] [place] [id number] Platelet mean volume (Bld) [Entitic vol] 9.7 fL Normal 9.4-12.4 [facility] Comment on above: Order Comment: Campu s: M Performed By: #### L [id number] #### [facility] [address] [place] [address] PLT 244 K/CU MM Normal 150-450 [facility] Comment on above: Order Comment: Campu s: M Performed By: #### L [id number] #### [facility] [address] [place] [address] RBC 4.66 M/CU MM Normal 3.90-5.30 [facility] Comment on above: Order Comment: Campu s: M Performed By: #### L [id number] #### [facility] [address] [place] [address] WBC 10.1 K/CUMM Normal 4.5-11.0 [facility] Comment on above: Order Comment: Campu s: M Performed By: #### L [id number] #### [facility] [address] [place], [place] [id number] GFR ESTon 12-04-2020 IF AMER Greater than 60 Normal [facility] Comment on above: Order Comment: Campu s: M Performed By: #### L 500.53593, L500.82318 #### [facility] [address] [place] [address] IF non-AFR AMER Greater than 60 Normal [facility] Comment on above: Order Comment: Campu s: M Performed By: #### L 500.80302, L500.81195 #### [facility] [address] [place] [place] [address] GLUCOSE METERon 12-04-2020 Glucose [Mass/Vol] 222 mg/dL High 85-125 [facility] Glucose [Mass/Vol] 325 mg/dL High 85-125 [facility] Glucose [Mass/Vol] 347 mg/dL High 85-125 [facility] HP.IMS.CON 12-04-2020 CONSULTATION-H&P Normal [facility] HP.IMS.[facility] Patient Name: PHYLICIA FALK [address] [facility] [address] Date of : [address] [place], [place] [address] Unit Number: [id number] CONSULTATION-HandP Patient Status: REG SDC Attending Doctor: Jason Blanchard DO Service Date: 12/04/20 8330 History of Present Illness Referring Physician Floyd [...] heart rate (more content not included)... Normal [facility] CONSULTATION-H&P [facility] HP.IMS.[facility] Patient Name: PHYLICIA FALK [address] [employer] Date of : [address] [place] [address] Unit Number: [id number] CONSULTATION-HandP Patient Status: REG [facility] Attending Doctor: Jason Blanchard DO Service Date: 12/04/20 154 History of Present Illness Referring Physician Jason Blanchard DO Consulted Provider Addison Paez MD Source of Information Patient Reason for Consult Right foot diabetic infection status post trauma Living Situation Home - Independent History of Present Illness This is a 55-year-old white female history yvv-jznyikg-wezjzyglh diabetes mellitus who had localized trauma to [...] symptoms. Past Medical/Surgical Hx Past Medical History Uqh-nosoueq-acluclsvm diabetes mellitus. Multiple orthopedic surgeries in the [...] Addison Paez Verified/Reviewed by 12/04/20 1546 [facility] DATE OF SERVICE: TIME OF SURGERY: 1:30 [...] necrotic tendon for microbiology; both aerobic and [facility] PATIENT NAME: PHYLICIA FALK Dr. Schmid MEDICAL REC #: [id number] [place] [address] ADMIT DATE: DISCHARGE DATE: 12/06/20 OPERATIVE REPORT [...] in a stable condition. Jason Blanchard DO [id number] SSI File#: [id number] END OF DOCUMENT / CHANGE LOG FOLLOWS Last Edited By [employer]. Signed By Jason Blanchard DO #LYKMI Jason Blanchard DO #LYKMI on 01/01/2021 09:47 ET on 01/01/2021 09:47 ET Revision Number - 2 [facility] PATIENT NAME: PHYLICIA FALK Dr. Schmid MEDICAL REC #: [id number] [place] [address] ADMIT DATE: DISCHARGE DATE: 12/06/20 OPERATIVE REPORT ATTENDING PHY: Jason Blanchard DO Verified/Reviewed by 01/01/21 0947 DEE [facility] PATIENT NAME: PHYLICIA FALK [address] [facility] [address] Schmid MEDICAL REC #: [id number] [place] [address] ADMIT DATE: DISCHARGE DATE: 12/06/20 OPERATIVE REPORT ATTENDING PHY: Jason Blanchard DO Normal [facility] Vital Signs Date Time Vital Sign Value Performing Clinician Justini carlos alberto 04-13-2023 08:06-0500 Diastolic blood pressure 72 mm[Hg] Yris Kelley COVER REMOVER.PRODUCT BLENDING SUPERVISOR Work Phone: [facility] 04-13-2023 08:06-0500 Heart rate 98 /min Yris Kelley COVER REMOVER.PRODUCT BLENDING SUPERVISOR Work Phone: [facility] 04-13-2023 08:06-0500 Respiratory rate 16 /min Yris Kelley COVER REMOVER.PRODUCT BLENDING SUPERVISOR Work Phone: [facility] 04-13-2023 08:06-0500 SaO2% (BldA) [Mass fraction] 96 % Yris Kelley COVER REMOVER.PRODUCT BLENDING SUPERVISOR Work Phone: [facility] 04-13-2023 08:06-0500 Systolic blood pressure 104 mm[Hg] Yris Kelley COVER REMOVER.PRODUCT BLENDING SUPERVISOR Work Phone: [facility] 01-02-2023 15:19-0400 Body temperature 97.59 [degF] Nichole Matos COVER REMOVER.PRODUCT BLENDING SUPERVISOR Work Phone: [facility] 01-02-2023 15:19-0400 Body weight 95.25 kg Nichole Matos COVER REMOVER.PRODUCT BLENDING SUPERVISOR Work Phone: [facility] 01-02-2023 15:19-0400 Diastolic blood pressure 72 mm[Hg] Nichole Matos COVER REMOVER.PRODUCT BLENDING SUPERVISOR Work Phone: [facility] 01-02-2023 15:19-0400 Heart rate 110 /min Nichole Matos COVER REMOVER.PRODUCT BLENDING SUPERVISOR Work Phone: [facility] 01-02-2023 15:19-0400 Respiratory rate 16 /min Nichole Matos COVER REMOVER.PRODUCT BLENDING SUPERVISOR Work Phone: [facility] 01-02-2023 15:19-0400 SaO2% (BldA) [Mass fraction] 97 % Nichole Matos COVER REMOVER.PRODUCT BLENDING SUPERVISOR Work Phone: [facility] 01-02-2023 15:19-0400 Systolic blood pressure 120 mm[Hg] Nichole Matos COVER REMOVER.PRODUCT BLENDING SUPERVISOR Work Phone: [facility] 06-17-2022 13:13-0500 Body height 172.7 cm Estefnaía Schmidt COVER REMOVER.PRODUCT BLENDING SUPERVISOR Work Phone: [facility] 06-17-2022 13:13-0500 Body weight 78.93 kg Estefanía Schmidt APRN.PRODUCT BLENDING SUPERVISOR Work Phone: [facility] 06-17-2022 13:13-0500 Diastolic blood pressure 70 mm[Hg] Estefanía Schmidt COVER REMOVER.PRODUCT BLENDING SUPERVISOR Work Phone: [facility] 06-17-2022 13:13-0500 Systolic blood pressure 114 mm[Hg] Estefanía Schmidt COVER REMOVER.PRODUCT BLENDING SUPERVISOR Work Phone: [facility] 12-02-2021 16:01-0400 Body temperature 98.1 [degF] Cuong Trujillo MD Work Phone: [facility] 12-02-2021 16:01-0400 Body weight 76.2 kg Cuong Trujillo MD Work Phone: [facility] 12-02-2021 16:01-0400 Diastolic blood pressure 68 mm[Hg] Cuong Trujillo MD Work Phone: [facility] 12-02-2021 16:01-0400 Heart rate 108 /min Cuong Trujillo MD Work Phone: [facility] 12-02-2021 16:01-0400 Respiratory rate 16 /min Cuong Trujillo MD Work Phone: [facility] 12-02-2021 16:01-0400 SaO2% (BldA) [Mass fraction] 98 % Cuong Trujillo MD Work Phone: [facility] 12-02-2021 16:01-0400 Systolic blood pressure 116 mm[Hg] Cuong Trujillo MD Work Phone: [facility] 10-08-2021 11:00-0400 Body weight 77.56 kg Cuong Trujillo MD Work Phone: [facility] 10-08-2021 11:00-0400 Diastolic blood pressure 58 mm[Hg] Cuong Trujillo MD Work Phone: [facility] 10-08-2021 11:00-0400 Heart rate 88 /min Cuong Trujillo MD Work Phone: [facility] 10-08-2021 11:00-0400 Systolic blood pressure 92 mm[Hg] Cuong Trujillo MD Work Phone: [facility] Encounters Encounter Date Encounter Type Care Provider Facility Start: 02-02-2024 End: 02-02-2024 ambulatory Clarissa Sheehan MA [facility] Start: 02-02-2024 End: 02-02-2024 Patient encounter procedure Clarissa Sheehan MA [facility] [place] Comment on above: Population Health [facility] Start: 02-01-2024 End: 02-01-2024 ambulatory CUONG TRUJILLO Facility:[facility] Start: 01-26-2024 End: 01-26-2024 Chart abstracting Cuong Trujillo MD Work Phone: [facility] [place] Start: 01-09-2024 End: 01-10-2024 Refill Cuong Trujillo MD Work Phone: [facility] [place] Comment on above: Refill Request Start: 12-29-2023 Refill Cuong Trujillo MD Work Phone: Family [facility] [place] Comment on above: Refill Request Start: 11-16-2023 ambulatory Clarissa A Rogerio Normanleida [facility] [place] Start: 11-16-2023 Patient encounter procedure [facility] on above: Population Health Na vigation Outreach ([facility] Start: 11-01-2023 Telephone encounter Yris ogden APRN.PRODUCT BLENDING SUPERVISOR Work Phone: [facility] [place] Comment on above: Results Start: 10-28-2023 End: 10-28-2023 ambulatory [facility] Facility:[facility] Start: 10-19-2023 Refill Cuong Trujillo MD Work Phone: [facility] [place] Comment on above: Refill Request Start: 07-15-2023 Refill Cuong Trujillo MD Work Phone: [facility] [place] Comment on above: Refill Request Start: 05-05-2023 ambulatory Cuong Trujillo MD Work Phone: [facility] [place] Comment on above: Mounjaro Start: 04-24-2023 Refill Cuong Trujillo MD Work Phone: [facility] [place] Comment on above: Refill Request Start: 04-21-2023 Documentation procedure Mammog yuosif Coordinator [facility] Start: 04-21-2023 Letter encounter Mammography Coordinator [facility] Department Start: 04-21-2023 End: 04-21-2023 ambulatory ESTEFANÍA SCHMIDT Facility:[facility] Start: 04-13-2023 End: 04-13-2023 ambulatory [facility] Facility:[facility] Start: 04-13-2023 End: 04-13-2023 Office outpatient visit 25 minutes Yris Kelley APRN.PRODUCT BLENDING SUPERVISOR Work Phone: [facility] [place] Comment on above: Type 2 diabetes rickie itus with complication, without long-term current use of insulin (HCC) (Primary Dx); Narcolepsy due to underlying condition without cataplexy; Medication management; Bilateral carotid artery stenosis; Hypothyroidism, unspecified type; Hyperlipidemia, mixed; Encounter for immunization; Chronic ulcer of right foot due to diabetes mellitus (HCC) Start: 04-02-2023 End: 04-02-2023 ambulatory CUONG TRUJILLO Facility:[facility] Start: 03-29-2023 Refill Cuong Trujillo MD Work [...] End: 01-02-2023 Patient encounter procedure Nichole Matos APRN.PRODUCT BLENDING SUPERVISOR Work Phone: [facility] Comment on above: Dysuria (Primary Dx) Start: 12-20-2022 Refill Cuong Trujillo MD Work Phone: [facility] [place] Comment on above: Refill Request Start: 09-25-2022 Telephone encounter Cuong Trujillo MD Work Phone: [facility] [place] Comment on above: Pre-Op Exam Start: 09-13-2022 Refill Cuong Trujillo MD Work Phone: [facility] [place] Comment on above: Refill Request Start: 07-28-2022 Refill Cuong Trujillo MD Work Phone: [facility] [place] Comment on above: Opened In Error Start: 07-26-2022 Refill Marylou Sy on PA-C Work Phone: [facility] [place] Comment on above: Refill Request Start: 07-20-2022 Refill Cuong Trujillo MD Work Phone: [facility] [place] Comment on above: Refill Request Start: 07-08-2022 Telephone encounter Home Bustos PA-C Work Phone: [facility] [place] Comment on above: Results Start: 06-17-2022 End: 06-17-2022 Patient encounter procedure Estefanía Schmidt APRN.PRODUCT BLENDING SUPERVISOR Work Phone: OB/Gynecology Comment on above: Encounter for gyneco logical examination (general) (routine) without abnormal findings (Primary Dx); Encounter for screening for human papillomavirus (HPV); Pap smear for cervical cancer screening; Encounter for screening mammogram for breast cancer Start: 06-17-2022 End: 06-17-2022 Patient encounter status Estefanía Schmidt APRN.PRODUCT BLENDING SUPERVISOR Work Phone: OB/Gynecology Start: 06-08-2022 Telephone encounter Cuong Trujillo MD Work Phone: [facility] [place] Comment on above: Appointment Start: 04-03-2022 Telephone [...] Request Start: 02-17-2022 Telephone encounter Yris ogden APRN.PRODUCT BLENDING SUPERVISOR Work Phone: [facility] [place] Comment on above: Results Start: 02-04-2022 ambulatory Cuong Trujillo MD Work Phone: [facility] [place] Comment on above: Dr Jim Falk, ENT Start: 01-27-2022 Telephone encounter Cuong Trujillo MD Work Phone: [facility] [place] Comment on above: Orders ([facility]) Start: 01-25-2022 Refill Cuong Trujillo MD Work Phone: [facility] [place] Comment on above: Refill Request Start: 01-10-2022 Telephone encounter Cuong Trujillo MD Work Phone: [facility] [place] Comment on above: Results Start: 12-12-2021 End: 12-12-2021 Subsequent hospital visit by physician Ct [facility] (I-Stat) Work Phone: Cat [facility] Comment on above: Scalp mass [R22.0] Start: 12-02-2021 End: 12-02-2021 Patient encounter procedure Cuong Trujillo MD Work Phone: [facility] [place] Comment on above: Sepsis due to methic [...] Start: 11-13-2021 Documentation procedure [facility] yousif [facility] Start: 11-13-2021 Letter encounter Mammography Coordinator [facility] Department Start: 11-13-2021 End: 11-13-2021 Subsequent hospital visit by physician Screen Mammo [facility] Mammogram Comment on above: Encounter for screen ing mammogram for breast cancer [Z12.31] Start: 11-12-2021 ambulatory Cuong Trujillo MD Work Phone: [facility] [place] Start: 10-23-2021 Telephone encounter Cuong Trujillo MD [...] Cuong Trujillo MD Work Phone: [facility] [place] Comment on above: Sugar meter Start: 10-09-2021 Telephone encounter Cuong Trujillo MD Work Phone: [facility] [place] Comment on above: Results Start: 10-08-2021 End: 10-08-2021 Patient encounter procedure Cuong Trujillo MD Work Phone: [facility] [place] Comment on above: Anemia, unspecified type (Primary Dx); Narcolepsy due to underlying condition without cataplexy; Type 2 diabetes mellitus with complication, without long-term current use of insulin (HCC); Hypothyroidism, unspecified type; Complex regional pain syndrome type 1 of lower extremity, unspecified laterality; Open wound of ankle and foot; Tenosynovitis Start: 09-22-2021 Telephone encounter Cuong Trujillo MD Work Phone: [facility] [place] Comment on above: Test strips RX Start: 06-24-2021 End: 07-17-[address] [facility] Procedures Date Procedure Procedure Detail Performing Clinician Start: 01-20-2024 Hemoglobin A1c/Hemoglobin.total in Blood [facility] Provider Start: 04-13-2023 Drug tst prsmv instr mnt chem analyzers pr date Yris Kelley COVER REMOVER.PRODUCT BLENDING SUPERVISOR Work Phone: Start: 04-13-2023 INFLUENZA VACCINE, A GE 6 MO - 64 YR, QUADRIVALENT (AFLURIA, FLULAVAL, FLUZONE) Yris Kelley COVER REMOVER.PRODUCT BLENDING SUPERVISOR Work Phone: Start: 01-02-2023 Urnls dip stick/tabl et rgnt auto w/o microscopy Nichole Matos COVER REMOVER.PRODUCT BLENDING SUPERVISOR Work Phone: Start: 12-12-2021 Ct head/brain [...] Detail Author Start: 08-13-2027 Urine microalbumin profile [facility] Start: 06-17-2027 PAP TESTING PAP TESTING [facility] Start: 06-17-2027 Screening for malign ant neoplasm of cervix [facility] Start: 06-28-2025 COLOGUARD (FIT-DNA) COLOGUARD (FIT-D NA) [facility] Start: 06-28-2025 COLORECTAL CANCER SCREENING COLORECTAL CANCER SCREENING [facility] Start: 06-28-2025 Screening for malign ant neoplasm of colon [facility] Start: 04-21-2024 Hemoglobin A1c measurement HbA1C [facility] Start: 04-21-2024 Mammography Mammogram Screening [facility] Start: 04-21-2024 Screening for malign ant neoplasm of breast Mammogram Screening [facility] Start: 04-13-2024 Annual PCP Team [employer] [place] Disease Visit Annual PCP Team Chronic Disease Visit [facility] Start: 04-13-2024 Covid-19 Vaccine ( season) Covid-19 Vaccine () [facility] Comment on above: Postponed from 01/22 (Declined at this time) Start: 04-13-2024 Hepatitis B Vaccine (1 of 3 - 19+ 3-dose series) Hepatitis B Vaccine (1 of 3 - 19+ 3-dose series) [facility] Comment on above: Postponed from 11/26 (Declined at this time) Start: 04-13-2024 Hepatitis B Vaccine (1 of 3 - 3-dose series) Hepatitis B Vaccine (1 of 3 - 3-dose series) [facility] Comment on above: Postponed from 11/26 (Declined at this time) Start: 04-13-2024 Pneumococcal vaccination [facility] Comment on above: Postponed from 11/26 (Declined at this time) Start: 01-28-2024 Hemoglobin A1c measurement HbA1C [facility] Start: 01-23-2024 Covid-19 Vaccine () Covid-19 Vaccine () [facility] Start: 01-23-2024 Influenza vaccination Influenza Vacc ine (#1) [facility] Start: 10-28-2023 End: 10-28-2023 ambulatory 10/28/2023 1:00 PM EDT Results Only [place] [facility] Draw Station [address] [place] [address] [place] [facility] Start: 10-08-2023 Hepatitis B screening URINE ALBUMIN:CREATININE RATIO [facility] Start: 10-01-2023 Hemoglobin A1c measurement HbA1C [facility] Start: 10-01-2023 Hemoglobin A1c/Hemoglobin.total in Blood HbA1C [facility] Start: 09-30-2023 ANNUAL PCP TEAM ABSTRACT WRITER [place] DISEASE VISIT ANNUAL PCP TEAM CHRONIC DISEASE VISIT [facility] Start: 06-13-2023 End: 12-12-2023 Hemoglobin A1c in Blood HGB A1C Lab Routine Type 2 diabetes mellitus with complication, without long-term current use of insulin (HCC) Expected: 06/13/2023, Expires: 12/12/2023 [facility] Work Phone: Comment on above: Expected: 06/13/2023 , Expires: 12/12/2023 Start: 06-13-2023 End: 12-12-2023 Lipid 1996 panel - Serum or Plasma LIPID PANEL BASIC Lab Routine Hyperlipidemia, mixed Expected: 06/13/2023, Expires: 12/12/2023 [facility] Work Phone: Comment on above: Expected: 06/13/2023 , Expires: 12/12/2023 Start: 06-13-2023 End: 12-12-2023 Thyrotropin [Units/volume] in Serum or Plasma TSH BLD Lab Routine Hypothyroidism, unspecified type Expected: 06/13/2023, Expires: 12/12/2023 [facility] Work Phone: Comment on above: Expected: 06/13/2023 , Expires: 12/12/2023 Start: 06-13-2023 End: 12-12-2023 Thyroxine (T4) free [Mass/volume] in Serum or Plasma T4 FREE/FREE THYROX Lab Routine Hypothyroidism, unspecified type Expected: 06/13/2023, Expires: 12/12/2023 [facility] Work Phone: Comment on above: Expected: 06/13/2023 , Expires: 12/12/2023 Start: 06-13-2023 End: 12-12-2023 Triiodothyronine (T3) [Mass/volume] in Serum or Plasma T3 BLD Lab Routine Hypothyroidism, unspecified type Expected: 06/13/2023, Expires: 12/12/2023 [facility] Work Phone: Comment on above: Expected: 06/13/2023 , Expires: 12/12/2023 Start: 06-08-2023 ANNUAL PCP TEAM ABSTRACT WRITER [place] DISEASE VISIT ANNUAL PCP TEAM CHRONIC DISEASE VISIT [facility] Start: 06-08-2023 HEPATITIS C SCREENING HEPATITIS C [facility] Comment on above: Postponed from 11/26 (Declined at this time) Start: 06-08-2023 Hepatitis C screening Hepatitis C [facility] Comment on above: Postponed from 11/26 (Declined at this time) Start: 06-05-2023 3 comp foot exam completed DIABETIC FOOT EXAM [facility] Start: 06-05-2023 Diabetic foot examination Diabetic F oot Exam [facility] Start: 05-24-2023 Behavioral Health Screening Behavioral Health Screening [facility] Start: 05-24-2023 Depression Assessment Depression Ass essment [facility] Start: 01-22-2023 Covid-19 Vaccine () Covid-19 Vaccine () [facility] Start: 01-22-2023 Influenza vaccination [facility] Start: 01-07-2023 Hemoglobin A1c/Hemoglobin.total in Blood HBA1C [facility] Start: 01-02-2023 End: 03-04-2023 Bacteria identified in Urine by Culture URINE CULTURE Microbiology Routine Dysuria Expected: 01/02/2023, Expires: 03/04/2023 [facility] Work Phone: Comment on above: Expected: 01/02/2023 , Expires: 03/04/2023 Start: 12-02-2022 ANNUAL PCP TEAM ABSTRACT WRITER [place] DISEASE VISIT ANNUAL PCP TEAM CHRONIC DISEASE VISIT [facility] Start: 11-13-2022 Mammography [facility] Start: 10-08-2022 ANNUAL PCP TEAM ABSTRACT WRITER [place] DISEASE VISIT ANNUAL PCP TEAM CHRONIC DISEASE VISIT [facility] Start: 10-08-2022 Hepatitis B screening URINE ALBUMIN:CREATININE RATIO [facility] Start: 07-28-2022 Hepatitis B surface antibody level LDL CHOLESTEROL [facility] Start: 07-25-2022 ANNUAL PCP TEAM ABSTRACT WRITER [place] DISEASE VISIT ANNUAL PCP TEAM CHRONIC DISEASE VISIT [facility] Start: 04-19-2022 End: 06-19-2022 Thyrotropin [Units/volume] in Serum or Plasma TSH BLD Lab Routine Hypothyroidism, unspecified type Expected: 04/19/2022, Expires: 06/19/2022 [facility] Work Phone: Comment on above: Expected: 04/19/2022 , Expires: 06/19/2022 Start: 04-10-2022 Hemoglobin A1c/Hemoglobin.total in Blood HBA1C [facility] Start: 03-25-2022 End: 05-25-2022 Bacteria identified in Urine by Culture URINE CULTURE Microbiology Routine Dark urine Expected: 03/25/2022, Expires: 05/25/2022 [facility] Work Phone: Comment on above: Expected: 03/25/2022 , Expires: 05/25/2022 Start: 03-25-2022 End: 05-25-2022 URINALYSIS, REFLEX MICROSCOPIC URINALYSIS, REFLEX MICROSCOPIC Lab Routine Dark urine Expected: 03/25/2022, Expires: 05/25/2022 [facility] Work Phone: Comment on above: Expected: 03/25/2022 , Expires: 05/25/2022 Start: 02-21-2022 End: 04-23-2022 Thyrotropin [Units/volume] in Serum or Plasma TSH BLD Lab Routine Hypothyroidism, unspecified type Expected: 02/21/2022, Expires: 04/23/2022 [facility] Work Phone: Comment on above: Expected: 02/21/2022 , Expires: 04/23/2022 Start: 01-28-2022 Hemoglobin A1c/Hemoglobin.total in Blood HBA1C [facility] Start: 01-22-[address] [facility] Start: 11-20-2021 End: 01-20-2022 Thyrotropin [Units/volume] in Serum or Plasma TSH BLD Lab Routine Hypothyroidism, unspecified type Expected: 11/20/2021, Expires: 01/20/2022 [facility] Work Phone: Comment on above: Expected: 11/20/2021 , Expires: 01/20/2022 Start: 11-01-2021 Adult depression scr eening assessment DEPRESSION SCREENING [facility] Start: 10-08-2021 End: 12-08-2021 ALBUMIN/CREAT RATIO RND UR [facility] Work Phone: Comment on above: Expected: 10/08/2021 , Expires: 12/08/2021 Start: 10-08-2021 End: 12-08-2021 CBC W Auto Differential panel - Blood [facility] Work Phone: Comment on above: Expected: 10/08/2021 , Expires: 12/08/2021 Start: 10-08-2021 End: 12-08-2021 Folate [Mass/volume] in Serum or Plasma [facility] Work Phone: Comment on above: Expected: 10/08/2021 , Expires: 12/08/2021 Start: 10-08-2021 End: 12-08-2021 Hemoglobin A1c/Hemoglobin.total in Blood [facility] Work Phone: Comment on above: Expected: 10/08/2021 , Expires: 12/08/2021 Start: 10-08-2021 End: 12-08-2021 IRON + TIBC [facility] Work Phone: Comment on above: Expected: 10/08/2021 , Expires: 12/08/2021 Start: 10-08-2021 End: 12-08-2021 VITAMIN B12 BLOOD [facility] Work Phone: Comment on above: Expected: 10/08/2021 , Expires: 12/08/2021 Start: 10-07-2021 Mammography MAMMOGRAM [facility] Start: 09-08-2021 COVID-19 VACCINE (4 - Booster for Moderna series) COVID-19 VACCINE (4 - Booster for Moderna series) [facility] Start: 07-22-2021 3 comp foot exam completed DIABETIC FOOT EXAM [facility] Start: 07-05-2021 COVID-19 VACCINE (4 - Booster for Moderna series) COVID-19 VACCINE (4 - Booster for Moderna series) [facility] Start: 07-05-2021 COVID-19 VACCINE (4 - Moderna series) COVID-19 VACCINE (4 - Moderna series) [facility] Start: 05-24-2021 DEPRESSION ASSESSMENT DEPRESSION ASS ESSMENT [facility] Start: 10-25-2019 Hepatitis B screening URINE ALBUMIN:CREATININE RATIO [facility] Start: 06-14-2019 HPV TESTING HPV TESTING [facility] Start: 06-14-2019 PAP TESTING PAP TESTING [facility] Start: 07-02-2018 COLORECTAL CANCER SCREENING COLORECTAL CANCER SCREENING [facility] Start: 07-02-2018 FECAL OCCULT BLOOD FECAL OCCULT BLOO D [facility] Start: 07-02-2018 Screening for malign ant neoplasm of colon Fecal Occult Blood [facility] Start: 2014 SHINGRIX VACCINE (1 of 2) RUBIO GRIX VACCINE (1 of 2) [facility] Start: 2009 COLOGUARD (FIT-DNA) COLOGUARD (FIT-D NA) [facility] Start: 2009 Colonoscopy COLONOSCOPY [facility] Start: [address] COLONOGRAPHY [facility] Start: 2009 Screening for malign ant neoplasm of colon [facility] Start: 2009 SIGMOIDOSCOPY SIGMOIDOSCOPY [facility] Start: 11-27-1983 HEPATITIS B (1 of 3 - Risk 3-dose series) HEPATITIS B (1 of 3 - Risk 3-dose series) [facility] Start: 11-27-1983 TWO PNEUMOVAX 5 YEAR S APART PRIOR TO AGE 65 (#1) TWO PNEUMOVAX 5 YEARS APART PRIOR TO AGE 65 (#1) [facility] Start: 1982 Anxiety Screening Anxiety Screening [facility] Start: 1982 Depression Screening Depression Scre ening [facility] Start: 1982 HEPATITIS C SCREENING HEPATITIS C [facility] Start: 1982 Hepatitis C screening Hepatitis C [facility] Start: 1982 HIV SCREENING HIV SCREENING [facility] Start: 1974 Glaucoma screening Dilated Retinal E xam [facility] Start: 1974 Hepatitis C antibody , confirmatory test DILATED RETINAL EXAM [facility] Start: 1970 PNEUMOCOCCAL (1 - PCV) PNEUMOCOCCAL (1 - PCV) [facility] Start: 1970 Pneumococcal vaccination Pneum ococcal Vaccine (1 - PCV) [facility] Start: 1964 HEPATITIS B (1 of 3 - 3-dose series) HEPATITIS B (1 of 3 - 3-dose series) [facility] Start: 1964 Hepatitis B Vaccine (1 of 3 - 3-dose series) Hepatitis B Vaccine (1 of 3 - 3-dose series) [facility] End: 01-01-2023 Ct head/brain w/o contrast material CT BRAIN WO IVCON Radiology Routine Scalp mass Thunderclap headache 1 Occurrences starting 12/02/2021 until 01/01/2023 [facility] Work Phone: Comment on above: 1 Occurrences starti ng 12/02/2021 until 01/01/2023 Hemoglobin.gastroint estina l.lower [Presence] in Stool by Immunoassay FECAL OCCULT BLOOD TEST Lab Routine Heme + stool Positive colorectal cancer screening using Cologuard test Ordered: 07/09/2022 [facility] Work Phone: Comment on above: Ordered: 07/09/2022 End: 07-17-2023 BALTAZAR SCREENING BALTAZAR SCREENING Radiology Routine Encounter for screening mammogram for breast cancer 1 Occurrences starting 06/17/2022 until 07/17/2023 [facility] Work Phone: Comment on above: 1 Occurrences [...] cataplexy Medication management 04/13/2023 9:27 AM EST [facility] Work Phone: End: 04-13-2024 US CAROTID ARTER[facility] US CAROTID [facility]ER[facility] Vascular Lab Routine Bilateral carotid artery stenosis 1 Occurrences starting 04/13/2023 until 04/13/2024 [facility] Work Phone: Comment on above: 1 Occurrences starti ng 04/13/2023 until 04/13/2024 [facility] Immunizations Immunization Date Immunization Notes Care Provider Akhil ortega 04-13-2023 influenza, injectabl e, quadrivalent, contains preservative Yris Kelley [employer] Work Phone: [facility] 04-13-2023 influenza virus vaccine, unspecified formulation Cuong Trujillo MD Work Phone: [facility] 08-29-2020 COVID-19 vaccine, fu ll dose (MODERNA) Cuong Trujillo MD Work Phone: [facility] 07-18-2020 COVID-19 vaccine, fu ll dose (MODERNA) Cuong Trujillo MD Work Phone: [facility] 05-06-2018 influenza, injectabl e, quadrivalent, contains preservative Cuong Trujillo MD Work Phone: [facility] 05-06-2018 influenza virus vaccine, unspecified formulation Cuong Trujillo MD Work Phone: [facility] 08-12-2017 tetanus and diphther ia toxoids, adsorbed, preservative free, for adult use (5 Lf of tetanus toxoid and 2 Lf of diphtheria toxoid) Cuong Trujillo MD Work Phone: [facility] 02-24-2017 influenza, seasonal, injectable Cuong Trujillo MD Work Phone: [facility] 03-11-2016 influenza, injectabl e, quadrivalent, contains preservative Cuong Trujillo MD Work Phone: [facility] 03-29-2014 influenza, seasonal, injectable Cuong Trujillo MD Work Phone: [facility] 03-17-2012 influenza virus vaccine, unspecified formulation Cuong Trujillo MD Work Phone: [facility] 03-22-2008 influenza virus vaccine, unspecified formulation Cuong Trujillo MD Work Phone: [facility] 04-12-2007 tetanus toxoid, redu ernesto diphtheria toxoid, and acellular pertussis vaccine, adsorbed Cuong Trujillo MD Work Phone: [facility] Work Phone: Payers Date Payer Category Payer Unknown [employer]ER [employer] / HEATHER [id number] 2022-Present [phone] [address] [address] [place] [address] EPO [id number] 2022 Unknown [id number] 2021 Medicaid [place] [employer] [place] [employer] [id number] 2021-Present [phone] [address] [place] [address] Medicaid [id number] 2021 Medicaid [id number] 2019 Unknown [id number] 1965 Unknown [id number] Unknown [id number] Social History Date Type Detail Facility Start: 10-28-2010 End: 06-17-2022 Tobacco smoking status NHIS Ex-smoker [facility] Work Phone: Start: 10-28-1980 End: 10-28-1989 History of tobacco use Current smoker [facility] Work Phone: Start: 10-28-2010 End: 09-29-2022 Cigarettes smoked current (pack per day) - Reported 0.1 [facility] Start: 10-28-2010 End: 06-17-2022 Tobacco use and exposure Smokeless tobacco non-user [facility] Work Phone: Start: 01-13-2021 End: 04-13-2023 Alcohol intake Current drinker of alcohol (finding) [facility] Start: 11-01-2020 History SDOH Alcohol Frequency 98 [facility] Start: 12-16-2012 History SDOH Alcohol Comment 6-10 times a year [facility] Start: 11-01-2020 End: 06-07-2022 History SDOH Physical Activity DPW 3 [facility] Start: 11-01-2020 History SDOH Physica l Activity MPS 9 [facility] Start: 07-22-2021 End: 06-07-2022 History SDOH Housing Unable to Pay 2 [facility] Start: 07-22-2021 End: 06-07-2022 History SDOH Housing Places Lived 1 [facility] Start: 1965 Sex Assigned At Female [facility] Start: 09-28-2021 End: 11-13-2021 Exposure to SARS-CoV-2 (event) Not sure [facility] Start: 10-28-1980 End: 10-28-1989 History of tobacco use Cigarette Smoker [facility] Work Phone: Start: 06-07-2022 History SDOH Social Connections Phone 5 [facility] Start: 06-07-2022 History SDOH Physica l Activity DPW 0 [facility] Start: 06-06-2022 End: 09-29-2022 Social connection and isolation panel [facility] Do you belong to any clubs or organizations such as jehovah's witness groups, unions, fraternal or athletic groups, or school groups? Yes [facility] Are you now , , , , never or living with a partner? [facility] How often to you hav e a drink containing alcohol? Monthly or less [facility] How many standard dr inks containing alcohol do you have on a typical day? 1 or 2 [facility] How often do you hav e 6 or more drinks on 1 occasion? Never [facility] How hard is it for y ou to pay for the very basics like food, housing, medical care, and heating Hard [facility] Adult Depression Screening Assessment 0 [facility] Work Phone: Do you feel stress - tense, restless, nervous, or anxious, or unable to sleep at night because your mind is troubled all the time - these days [OSQ] Not at all [facility] (I/We) worried whe er (my/our) food would run out before (I/we) got money to buy more. Sometimes true [facility] In the past 12 month s, was there a time when you were not able to pay the mortgage or rent on time? No [facility] Start: 10-04-2020 Gender identity Identifies as female gender (finding) [facility] Medical Equipment Procedure Code Equipment Code Equipment Original Text Equipment Identifier Dates Duraseal 5ml - [id number] Start: 12-23-2012 Comment on above: Description: Seble ruvalcaba Duraseal 5ml - [id number] Start: 01-25-2013 [id number], [id number] Start: 03-18-2020 End: 10-23-2021 Comment on above: [...] 11:17 AM EDTTelephone Encounter - Tyesha العلي APRN.[facility] - 01/10/2024 11:17 AM EDT Note Date & Type Note Facility 02-02-2024 Note HNO ID: [id number] Author: CLARISSA SHEEHAN MA Service: ? Author Type: Fulfillment Representative Type: Progress Notes Filed: 02/02/2024 16:53 Note [...] Sheehan MA February 02, 2024 4:52 PM [place] 02-02-2024 History of Presen t illness Narrative [...] 2024 4:52 PM documented in this encounter [facility] 02-02-2024 Note Patient Outreach (NE TNAV) PHYLICIA FALK ([id number]) 1965 F Date Time Provider Department 02/02/24 [...] or unnecessary to reach patient: Left message Nirvahahart message sent [facility] related Navigation Signature: Clarissa Sheehan MA February [...] Population Health Navigation Outreach [3910] Cmt: Heather [facility] Prescriptions as of 02/02/2024 - metFORMIN (GLUCOPHAGE) [...] Encounter Status:Closed by CLARISSA SHEEHAN on 02/02/24 [place] 01-10-2024 Telephone encounter Note The following approved [...] A Refill not appropriate Tyesha العلي APRN.CNP [facility] 01-10-2024 Telephone encounter Note Nuvigil is controlled. Must be seen every 3 months for refill. Urine tox screen every 6 months. This is required by the COMPA. Also, overdue for appt. Last HgA1c was >11. [facility] 01-10-2024 Miscellaneous Notes The following approved medication [...] 2024 8:44 AM documented in this encounter [facility] 01-10-2024 Telephone encounter Note Prescription Refill Information [...] Oca LPN January 10, 2024 8:44 AM [facility] 12-29-2023 Telephone encounter Note Prescription Refill Information [...] Lopez LPN December 29, 2023 3:10 PM [facility] 12-29-2023 Miscellaneous Notes Prescription Refill Information The [...] 2023 3:10 PM documented in this encounter [facility] 11-16-2023 Note HNO ID: [id number] Author: CLARISSA SHEEHAN MA Service: ? Author Type: Fulfillment Representative Type: Progress Notes Filed: 11/16/2023 13:42 Note [...] Sheehan MA November 16, 2023 1:11 PM [place] 11-16-2023 History of Presen t illness Narrative [...] or unnecessary to reach patient: Left message [employer] message sent Navigation Signature: Clarissa Sheehan MA November 16, 2023 1:11 PM documented in this encounter [facility] 11-16-2023 Note Patient Outreach (BRUNA TNAV) PHYLICIA FALK ([id number]) 1965 F Date Time Provider Department 11/16/23 [...] Population Health Navigation Outreach [3910] Cmt: Heather [facility] Prescriptions as of 11/16/2023 - baclofen 10 [...] to diabetes norma*04/13/2023 Encounter Status:Closed by CLARISSA HSEEHAN on 11/16/23 [place] 11-01-2023 Telephone encounter Note Referral faxed. Jose De eJsus Lopez LPN [facility] 11-01-2023 Miscellaneous Notes Referral faxed. Jose De Jesus Loepz LPN Referral placed. Please help schedule. Yris Kelley APRN.PRODUCT BLENDING SUPERVISOR TC to pt, notified of provider response. Pt states she was only on Mounjaro for the 1st 2 months and stopped d/t cost. She never picked up the increased dose. Pt states ok, I think I'm going to go back to Dr. Osman . (Endo in [place].) Jose De Jesus Lopez LPN The thyroid [...] Yris Kelley APRN.EVI documented in this encounter [facility] 11-01-2023 Telephone encounter Note Referral placed. Please help schedule. Yris Kelley APRN.EVI [facility] 11-01-2023 Telephone encounter Note TC to pt, notified of provider response. Pt states she was only on Mounjaro for the 1st 2 months and stopped d/t cost. She never picked up the increased dose. Pt states ok, I think I'm going to go back to Dr. Osman . (Endo in [place].) Jose De Jesus Lopez LPN [facility] 11-01-2023 Telephone encounter Note The thyroid labs [...] see if it has better coverage. T [facility] 11-01-2023 Telephone encounter Note Patient notified of results, verbalizes understanding of instructions. Pt stated she is not taking the Mounjaro to expensive. And T3 and T4 labs are off. Amy St LPN T [facility] 11-01-2023 Telephone encounter Note Can we please let patient know that I received her lab results. Her A1C went up to 11.2, which is too high. Has she been taking the metformen and the mounjaro? Any missed doses? Yris Kelley APRN.EVI T [facility] 10-19-2023 Telephone encounter Note Patient has been [...] Please advise. Thank you. Tyesha Hung LPN. [facility] 10-19-2023 Miscellaneous Notes Patient has been identified [...] Tyesha Hung LPN. documented in this encounter [facility] 07-16-2023 Miscellaneous Notes Patient has been identified [...] Tyesha Hung LPN. documented in this encounter [facility] 05-05-2023 Miscellaneous Notes Patient last visit 04/13/23 Follow up appointment scheduled none Sharyn Blancally signed by Sharyn Hurt Ma at 05/05/2023 11:51 AM EST documented in this encounter [facility] 04-26-2023 Miscellaneous Notes Patient phones requesting refills as follows: Requested Prescriptions Pending Prescriptions Disp Refills baclofen 10 mg tablet 90 tablet 1 Sig: TAKE 1 TABLET BY MOUTH THREE TIMES DAILY NEEDED FOR MUSCLE SPASM. DO NOT USE WITH FLEXERIL SIMBA 04/13/23 NOV no upcoming appt Please review and advise. Jose De Jesus Lopez documented in this encounter [facility] 04-21-2023 Miscellaneous Notes April 21, 2023 PID: [id number] Phylicia Falk [address] [place] [address] Dear Ms. Falk, We are pleased to [...] report will be kept on file at [facility] as part of your permanent medical record and are available for your continuing care. Thank you for allowing us to help in meeting your health care needs. Sincerely, Dr. Madison Interpreting Radiologist [facility] (Normal over 40) documented in this encounter [facility] 04-21-2023 Note HNO ID: [id number] Author: Ellie Huggins, Mammo Tech Service: ? Author Type: Sales And Marketing Director Type: Progress Notes Filed: 04/21/2023 9:04 AM [...] DATA: Not applicable SIGNED BY: Ellie Huggins [employer] April 21, 2023 8:52 AM [place] 04-13-2023 Instructions Yris Kelley APRN.CNP - 04/13/2023 8:34 AM EST Continue the same medication. Get labs and recheck in 3 months. (Fasting labs). Schedule carotid duplex when ready. documented in this encounter [facility] 04-13-2023 Note HNO ID: [id number] Author: Yris Kelley APRN.EVI Service: ? Author [...] Diabetes mellitus type 2, controlled, without complications ([facility]) 08/12/2017 Muscle spasm Myalgia and myositis, unspecified [...] in 3 month (more content not included)... [place] 04-13-2023 History of Presen t illness Narrative [...] Diabetes mellitus type 2, controlled, without complications ([facility]) 08/12/2017 Muscle spasm Myalgia and myositis, unspecified [...] as needed for worsening/no improvement. Yris Kelley APRN.PRODUCT BLENDING SUPERVISOR documented in this encounter [facility] 04-01-2023 Miscellaneous Notes Booked apt for 04/13/23 with Yris Kelley @8 am arriving at 7:45 am. Sent [employer] message with above and to call back if this does not work for her. Anahi Layton LPN [facility] message sent. Jose De Jesus Lopez Script sent. Due for an appointment. Please let patient know. Yris Kelley APRN.PRODUCT BLENDING SUPERVISOR Patient phones requesting refills as follows: [...] De Jesus Lopez documented in this encounter [facility] 03-30-2023 Miscellaneous Notes Patient phones requesting refills as follows: Requested Prescriptions Pending Prescriptions Disp Refills tirzepatide (MOUNJARO) 2.5 mg/0.5 mL pen injector 2 mL 0 Sig: Inject 2.5 mg subcutaneously one time a week. SIMBA 09/29/22 NOV no upcoming appt Please review and advise. Jose De Jesus Lopez documented in this encounter [facility] 03-05-2023 Miscellaneous Notes Edwin with [employer] called with authorization numbers for approvals below. 1) Armodafinil PA # [id number] for 12 months 03-04-23 thru 03-04-24 2) Mounjaro PA # [id number] for 12 months 03-04-23 thru 1-=12=24. Anahi [...] Sharyn Hurt Ma documented in this encounter [facility] 02-22-2023 Miscellaneous Notes Approval scanned into chart. Reyna Garcia MA Approval faxed to Ayana. Norah [employer] - phoned to report Cass has been approved for 12 months: 02-19-23 to 02-20-24. Norah will fax approval to Dr. Duffy office. Fax number given. Notified patient. Called to check on status with Irina and advised need to call Heather who is handling PA Heather PA number [phone] Spoke to Heather [facility] who checked on status of PA and is still pending and pushed to expedite due to being diabetic Sharyn Hurt Ma Electronic PA submitted for Cass Hurt Ma documented in this encounter [facility] 01-02-2023 History of Presen t illness Narrative This note was created using [employer] [facility] [employer]. Subjective Phylicia Falk is a 57 year old female. 57 year old female with PMH fibromylalgia, thyroid, and spinal stenosis presents with complaints of possible UTI Acute onset 3 days + suprapubic pressure +frequency +burning Denies recent coitus Denies abdominal pain Denies vaginal bleeding Denies vaginal discharge Denies fever Denies using OTC or homeopathic States she had been working at [employer] all week, and holding her urine. The history is provided by the patient. 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 UTI This is a new [...] Diabetes mellitus type 2, controlled, without complications ([facility]) 08/12/2017 Muscle spasm Myalgia and myositis, unspecified [...] URINE (POC) - URINE CULTURE Nichole Matos APRN.PRODUCT BLENDING SUPERVISOR documented in this encounter [facility] 12-21-2022 Miscellaneous Notes Patient has been identified by name and date of : Yes Requested Prescriptions Pending Prescriptions Disp Refills liothyronine (CYTOMEL) 25 mcg tablet 90 tablet 0 Sig: Take 1 tablet by mouth once daily. RX INSTRUCTIONS: Patient aware RX will be sent to pharmacy. No need to notify patient. Vishnu Montes De Oca LPN documented in this encounter [facility] 09-25-2022 Miscellaneous Notes Patient returned call and went over notes and scheduled appt for 09/29/2022, at 340 pm with Freddie RUBIO. Left message for patient to call office. Needs a pre-op visit. [facility] (Can use a 40 min hospital follow up spot) documented in this encounter [facility] 09-14-2022 Miscellaneous Notes Patient has been identified [...] Harriet Vargas MA documented in this encounter [facility] 08-05-2022 Miscellaneous Notes Pt notified. She states this will have to wait d/t she is dealing with some health issues with her mother. She is aware that orders are in for her to complete at her earliest convenience. Jose De Jesus Lopez LPN [employer] message sent to pt notifying her to [...] cologuard test .gbgb4 documented in this encounter [facility] 07-27-2022 Miscellaneous Notes Patient phones requesting refills as follows: Requested Prescriptions Pending Prescriptions Disp Refills EPINEPHrine (EPIPEN) 0.3 mg/0.3 mL auto-injector 2 Each 1 Sig: Use as directed Please review and advise. Jose De Jesus Lopez LPN documented in this encounter [facility] 07-20-2022 Miscellaneous Notes Patient has been identified [...] Harriet Vargas MA documented in this encounter [facility] 06-17-2022 Instructions Estefanía Schmidt APRN.CNP - 06/17/2022 2:31 PM EST documented in this encounter [facility] 06-17-2022 History of Presen t illness Narrative Drafter Refrigeration offered: Patient declines. 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 History Comments: Sexual Activity: Not Currently; Male Contraception: No contraception data on record PAST MEDICAL HISTORY Diagnosis Date Allergic rhinitis Degeneration of intervertebral disc, site unspecified Diabetes mellitus type 2, controlled, without complications ([facility]) 08/12/2017 Muscle spasm Myalgia and myositis, unspecified [...] external genitalia normal, normal Bartholin's glands, urethra, Howardwick's glands, no vulvar lesions, no cervical lesions, [...] Estefanía Schmidt APRN.EVI documented in this encounter [facility] 06-09-2022 Miscellaneous Notes Called PT LVM to call back and schedule with GATE WATCHMAN. Adenike PSS Please set up with GATE WATCHMAN. Dr Trujillo placed consult during virtual visit. documented in this encounter [facility] 04-03-2022 Miscellaneous Notes Completed and faxed back. Type of form: DWO Form received via fax When form is completed, Fax form to [phone] [facility] [employer] Form has been forwarded to Physician Desk: MONIKA Eric documented in this encounter [facility] 03-26-2022 Miscellaneous Notes Notified patient and verbalizes understanding. Culture pending but looks like possible uti. Cover with macrobid, rx sent. See urine result scanned into chart for patient. documented in this encounter [facility] 03-26-2022 Miscellaneous Notes Ann Marie calls to [...] office. Hallie Gonzalez RN Ann Marie from [facility] calling asking for a urine order please. Patient urine is very dark colored and she had recent UTI, was hospitalized. Pending orders needs diagnosis. Please advise documented in this encounter [facility] 03-09-2022 Miscellaneous Notes Patient phones requesting refills as follows: Requested Prescriptions Pending Prescriptions Disp Refills liothyronine (CYTOMEL) 25 mcg tablet 90 tablet 3 Sig: Take 1 tablet by mouth once daily. SIMBA 12/02/21 NOV 04/10/22 Please review and advise. Jose De Jesus Lopez LPN documented in this encounter [facility] 02-17-2022 Miscellaneous Notes Pt notified. She verbalized [...] Yris Kelley APRN.EVI documented in this encounter [facility] 02-04-2022 Miscellaneous Notes placed Ok to enter referral? documented in this encounter [facility] 01-27-2022 Miscellaneous Notes Last office visit: 12/02/21 F/u scheduled: 02/14/22 Siobhan France Ma documented in this encounter [facility] 01-27-2022 Miscellaneous Notes Received two homecare orders for patient from [facility]. Order # [id number] (Move PT) and order # [id number] (social science instructor appt). Orders placed on Papo's desk for review and signature. Needs faxed back to [phone]. Effie Ashraf documented in this encounter [facility] 01-10-2022 Miscellaneous Notes See orders for my chart documented in this encounter [facility] 12-12-2021 History of Presen t illness Narrative [...] 2021 2:01 PM documented in this encounter [facility] 12-02-2021 History of Presen t illness Narrative [...] Diabetes mellitus type 2, controlled, without complications ([facility]) 08/12/2017 Muscle spasm Myalgia and myositis, unspecified [...] Keep next ov documented in this encounter [facility] 11-28-2021 Miscellaneous Notes rx sent Patient reports [...] infection symptoms due to antibiotic use. Uses [facility] in [place]. Please advise. Thank you. documented in this encounter [facility] 11-28-2021 Miscellaneous Notes Patient contacted and given [...] closely. Please advise patient if needed, at [phone]. Thank you. documented in this encounter [facility] 11-13-2021 Miscellaneous Notes November 13, 2021 PID: [id number] Phylicia Falk [address] [place] [address] Dear Ms. Falk, We are pleased to [...] report will be kept on file at [facility] as part of your permanent medical record and are available for your continuing care. Thank you for allowing us to help in meeting your health care needs. Sincerely, Dr. Roca Interpreting Radiologist [facility] (Normal over 40) documented in this encounter [facility] 11-13-2021 History of Presen t illness Narrative [...] 2021 11:14 AM documented in this encounter [facility] 10-23-2021 Miscellaneous Notes Patient was notified Sharyn Hurt Ma rx sent, let her know Tried to complete PA on test strips but since only on one diabetic medication (janumet) insurance will only cover once a day testing. If patient desires to check BID will have to pay out of pocket can use [facility] otc. Sharyn Hurt Ma [facility] with [facility] called and states the pt's insurance allows pot to test once a day and will allow 100 test strips in a 90 day period. Pt is testing twice a day. PA needs to be done per Soco. PRIOR AUTHORIZATION Medication for Prior Authorization: test strips Other formulary meds available : NO Insurance Company: Medicaid Insurance Company phone number: [phone] Patient insurance ID number: [id number] Anahi Layton LPN documented in this encounter [facility] 10-22-2021 Miscellaneous Notes rx sent for meter [...] Phone # to call for PA is [phone] ID# [id number]. (Routed note to RAMIRO teran regarding PA for levocetirizine) documented in this encounter [facility] 10-10-2021 Miscellaneous Notes \ documented in this encounter [facility] 10-09-2021 Miscellaneous Notes Patient was notified Sharyn Hurt Ma Sugars little higher but still very good. Thyroid is over corrected. Decrease synthroid to 125 mcg a day. Recheck tsh in six weeks. documented in this encounter [facility] 10-08-2021 History of Presen t illness Narrative [...] on insulin as well while in the retirement but that has since been stopped due [...] Abs Lymph 1.00 - 4.00 k/uL 2.98 Cook% % 5.8 Abs Cook <0.87 k/uL 0.51 Eosin% % 5.5 Abs [...] Negative Negative Ketones, Urine Negative Negative Specific [place], Ur 1.005 - 1.030 1.018 Hemoglobin/Blood,Ur Negative [...] Diabetes mellitus type 2, controlled, without complications ([facility]) 08/12/2017 Muscle spasm Myalgia and myositis, unspecified [...] months and prn. documented in this encounter [facility] 09-22-2021 Miscellaneous Notes Patient is ok with twice daily testing. Let her know will only cover bid unless on insulin and make sure is ok with her. [facility] [place], reports insurance will only cover test strips 4 x's day, if patient takes insulin. If patient does not take insulin, will cover twice daily testing. Asking pcp to send new RX for twice daily or do PA on 4 x's day testing. documented in this encounter [facility] 01-08-2021 Note [facility] Ce jasper Jha 03-15-2017 History of [...] of this encounter (statuses as of 09/22/2021) [facility] History of Past illness Narrative* Problem Noted [...] of this encounter (statuses as of 10/08/2021) [facility] of Past illness Narrative* Problem Noted [...] of this encounter (statuses as of 10/09/2021) [facility] of [facility] illness Narrative* Problem Noted [...] of this encounter (statuses as of 10/10/2021) [facility] of [facility] Narrative* Problem Noted [...] of this encounter (statuses as of 10/13/2021) [facility] of [facility] Narrative* Problem Noted [...] of this encounter (statuses as of 10/22/2021) [facility] of [facility] illness Narrative* Problem Noted [...] of this encounter (statuses as of 10/23/2021) [facility] Narrative* Problem Noted [...] of this encounter (statuses as of 11/14/2021) [facility] Narrative* Problem Noted [...] of this encounter (statuses as of 11/15/2021) [facility] Narrative* Problem Noted [...] of this encounter (statuses as of 11/17/2021) [facility] Narrative* Problem Noted [...] of this encounter (statuses as of 11/28/2021) [facility] Narrative* Problem Noted [...] of this encounter (statuses as of 12/02/2021) [facility] Narrative* Problem Noted [...] of this encounter (statuses as of 12/13/2021) [facility] Narrative* Problem Noted [...] of this encounter (statuses as of 01/10/2022) [facility] Narrative* Problem Noted [...] of this encounter (statuses as of 01/27/2022) [facility] Narrative* Problem Noted [...] of this encounter (statuses as of 01/27/2022) [facility] Narrative* Problem Noted [...] of this encounter (statuses as of 02/04/2022) [facility] Narrative* Problem Noted [...] of this encounter (statuses as of 02/17/2022) [facility] Narrative* Problem Noted Date Resolved Date Hyperglycemia 03/15/2017 04/17/2019 Overview: Seeing endo. [place] Postoperative CSF leak 01/24/2013 8 Nausea 12/26/2012 [...] of this encounter (statuses as of 03/10/2022) [facility] Narrative* Problem Noted [...] of this encounter (statuses as of 03/26/2022) [facility] Narrative* Problem Noted [...] of this encounter (statuses as of 04/03/2022) [facility] Narrative* Problem Noted [...] of this encounter (statuses as of 06/09/2022) [facility] Narrative* Problem Noted [...] of this encounter (statuses as of 06/17/2022) [facility] Narrative* Problem Noted [...] of this encounter (statuses as of 07/21/2022) [facility] Narrative* Problem Noted [...] of this encounter (statuses as of 07/27/2022) [facility] Narrative* Problem Noted [...] of this encounter (statuses as of 07/28/2022) [facility] Narrative* Problem Noted [...] of this encounter (statuses as of 08/05/2022) [facility] Narrative* Problem Noted [...] of this encounter (statuses as of 09/14/2022) [facility] Narrative* Problem Noted [...] of this encounter (statuses as of 09/25/2022) [facility] Narrative* Problem Noted [...] of this encounter (statuses as of 12/21/2022) [facility] Narrative* Problem Noted [...] of this encounter (statuses as of 01/02/2023) [facility] Narrative* Problem Noted [...] of this encounter (statuses as of 02/23/2023) [facility] Narrative* Problem Noted [...] of this encounter (statuses as of 03/05/2023) [facility] Narrative* Problem Noted [...] of this encounter (statuses as of 03/31/2023) [facility] Narrative* Problem Noted [...] of this encounter (statuses as of 04/01/2023) [facility] Narrative* Problem Noted [...] of this encounter (statuses as of 04/13/2023) [facility] Narrative* Problem Noted [...] of this encounter (statuses as of 04/23/2023) [facility] Narrative* Problem Noted [...] of this encounter (statuses as of 04/26/2023) [facility] N[facility]ative* Problem Noted [...] of this encounter (statuses as of 05/06/2023) [facility] Narrative* Problem Noted [...] of this encounter (statuses as of 07/16/2023) [facility] Diagnosis Type 2 diabetes mellitus with complication, without long-term current use of insulin ([facility]) [facility] Diagnosis Anemia, unspecified type- Primary Narcolepsy due to underlying condition without cataplexy Type 2 diabetes mellitus with complication, without long-term current use of insulin (HCC) Hypothyroidism, unspecified type Complex regional pain syndrome type 1 of lower extremity, unspecified laterality Open wound of ankle and foot Tenosynovitis Synovitis and tenosynovitis, unspecified [facility] Diagnosis Hypothyroidism, unspecified type [facility] Diagnosis Type 2 diabetes mellitus with complication, without long-term current use of insulin (HCC)- Primary [facility] Diagnosis Type 2 diabetes mellitus with complication, without long-term current use of insulin (HCC) [facility] Diagnosis Type 2 diabetes mellitus with complication, without long-term current use of insulin (HCC) [facility] Diagnosis Type 2 diabetes mellitus with complication, without long-term current use of insulin (HCC) [facility] Diagnosis Encounter for screening mammogram for breast cancer [facility] Diagnosis Encounter for screening mammogram for breast cancer [facility] Diagnosis Sepsis due to methicillin susceptible Staphylococcus aureus, unspecified whether acute organ dysfunction present (HCC)- Primary Cellulitis, unspecified cellulitis site Type 2 diabetes mellitus with complication, without long-term current use of insulin (HCC) Hypothyroidism, unspecified type Scalp mass Localized superficial swelling, mass, or lump Thunderclap headache Headache [facility] Diagnosis Scalp mass Localized superficial swelling, mass, or lump Thunderclap headache Headache [facility] Diagnosis Hypothyroidism, unspecified type- Primary [facility] Diagnosis Complex regional pain syndrome type 1 of lower extremity, unspecified laterality [facility] Diagnosis Dizziness- Primary Dizziness and giddiness [facility] Diagnosis Hypothyroidism, unspecified type [facility] Diagnosis Dark urine- Primary Other nonspecific finding on examination of urine [facility] Diagnosis Encounter for gynecological examination (general) (routine) without abnormal findings- Primary Encounter for screening for human papillomavirus (HPV) Special screening examination for human papillomavirus (HPV) Pap smear for cervical cancer screening Screening for malignant neoplasm of the cervix Encounter for screening mammogram for breast cancer [facility] Diagnosis Bee sting allergy Allergy to insects and arachnids [facility] Diagnosis Hypothyroidism, unspecified type [facility] Diagnosis Heme + stool- Primary Nonspecific abnormal finding in stool contents Positive colorectal cancer screening using Cologuard test [facility] Diagnosis Hypothyroidism, unspecified type documented in this encounter [facility]* Diagnosis Hypothyroidism, unspecified type documented in this encounter [facility] note* Diagnosis Dysuria- Primary documented in this encounter [facility] note* Diagnosis Type 2 diabetes mellitus with [...] diabetes mellitus (HCC) documented in this encounter [facility] note* Diagnosis Complex regional pain syndrome type 1 of lower extremity, unspecified laterality documented in this encounter [facility] note* Diagnosis Narcolepsy due to underlying condition without cataplexy Hypothyroidism, unspecified type documented in this encounter [facility] note* Diagnosis Complex regional pain syndrome type 1 of lower extremity, unspecified laterality Hypothyroidism, unspecified type documented in this encounter [facility] note* Diagnosis Type 2 diabetes mellitus with complication, without long-term current use of insulin (HCC)- Primary documented in this encounter [facility] note* Diagnosis Hypothyroidism, unspecified type Complex regional pain syndrome type 1 of lower extremity, unspecified laterality documented in this encounter [facility] note* Diagnosis Type 2 diabetes mellitus with [...] condition without cataplexy documented in this encounter [facility] for referral (narrative)* Diagnostic Procedure Only (Routine) - Closed Specialty Diagnoses / Procedures Referred By Sofiya kruse Referred To Contact [facility] Diagnoses Encounter for screening mammogram for breast cancer Procedures BALTAZAR SCREENING SCREENING MAMMOGRAPHY BI 2-VIEW BREAST INC CAD Cuong Trujillo MD [address] [place] [address] [facility] [address] [place] [address] Referral ID Status Reason Start Date Expiration Date V isits Requested Visits Authorized [id number] Closed Auto-Generate d Referral 11/12/2021 12/12/2022 1 1 [facility] for referral (narrative)* Diagnostic Procedure Only (Routine) - Closed Specialty Diagnoses / Procedures Referred By Contac t Referred To Contact [facility] Diagnoses Encounter for screening mammogram for breast cancer Procedures [facility] SCREENING SCREENING MAMMOGRAPHY BI 2-VIEW BREAST INC CAD Cuong Trujillo MD [address] [place] [address] [facility] [address] [place] [address] Referral ID Status Reason Start Date Expiration Date V isits Requested Visits Authorized [id number] Closed Auto-Generate d Referral 11/12/2021 12/12/2022 1 1 [facility] for referral (narrative)* Diagnostic Procedure Only (Routine) - Pending Review Specialty Diagnoses / Procedures Referred By Contac t Referred To Contact [facility] Diagnoses Encounter for screening mammogram for breast cancer Procedures BALTAZAR SCREENING SCREENING MAMMOGRAPHY BI 2-VIEW BREAST INC Estefanía Browning APRN.CNP [address] [place] [address] [facility] [address] [place] [address] Referral ID Status Reason Start Date Expiration Date Visits Requested Visits Authorized [id number] Pending Review Auto-Generat ed Referral 06/17/2022 07/17/2023 1 1 [facility] for referral (narrative)* Outpatient Procedure (Routine) - Pending Review Specialty Diagnoses / Procedures Referred By Contac t Referred To Contact [facility] Diagnoses Bilateral carotid artery stenosis Procedures US CAROTID ARTERIES [facility] DUPLEX SCAN EXTRACRANIAL ART COMPL BI STUDY Yris Kelley APRN.CNP [address] [place] [address] [facility] [place] [address] [place] [address] Referral ID Status Reason Start Date Expiration Date Visits Requested Visits Authorized [id number] Pending Review Auto-Generat ed Referral 3 04/12/2024 1 1 [facility] for visit Narrative* Diagnostic Procedure Only (Routine) - Closed Specialty Diagnoses / Procedures Referred By Sofiya kruse Referred To Contact [facility] Diagnoses Encounter for screening mammogram for breast cancer Procedures BALTAZAR SCREENING SCREENING MAMMOGRAPHY BI 2-VIEW BREAST INC CAD Cuong Trujillo MD [address] [place] [address] [facility] [address] [place] [address] Referral ID Status Reason Start Date Expiration Date V isits Requested Visits Authorized [id number] Closed Auto-Generate d Referral 11/12/2021 12/12/2022 1 1 [facility] Summary Purpose Family History No Family History Records FoundNo Family History Records FoundNo Family History Records FoundNo Family History Records Found Advance Directives No Advanced Directives Records FoundDocuments on File Type Date Recorded 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 Advance Directive(s) Documents on File Type Date Recorded 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 Advance Directive(s) Reason for Referral Specialty Diagnoses / Procedures Referred By Sofiya kruse Referred To Contact CT [facility] Diagnoses Scalp mass Thunderclap headache Procedures CT BRAIN WO IVCON CT HEAD/BRAIN W/O CONTRAST MATERIAL Cuong Trujillo MD [address] [place] [address] Ct [facility] Referral ID Status Reason Start Date Expiration Date Visits Requested Visits Authorized [id number] Additional Clinical Info Needed Auto-Generat ed Referral 12/02/2021 01/01/2023 1 1 Referral ID Status Reason Start Date Expiration Date V isits Requested Visits Authorized [id number] Closed Auto-Generate d Referral 12/05/2021 01/03/2022 1 1 Specialty Diagnoses / Procedures Referred By Contac t Referred To Contact Ent - Otolaryngology Diagnoses Dizziness Procedures CONSULT TO ENT OFFICE/OUTPATIENT [facility] 60-74 MINUTES Cuong Trujillo MD [address] [place] [address] Referral ID Status Reason Start Date Expiration Date Visits Requested Visits Authorized [id number] Authorized PCP Requested Referral 02/04/2022 02/04/2023 1 1 Specialty Diagnoses / Procedures Referred By Contac t Referred To Contact General Surgery Diagnoses Heme + stool Procedures CONSULT TO GENERAL SURGERY OFFICE/OUTPATIENT [facility] 60-74 MINUTES Home Bustos PA-C [address] [place] [address] Referral ID Status Reason Start Date Expiration Date Visits Requested Visits Authorized [id number] Authorized PCP Requested Referral 07/08/2022 07/08/2023 1 1 Specialty Diagnoses / Procedures Referred By Contac t Referred To Contact Endocrinology Diagnoses Type 2 diabetes mellitus with complication, without long-term current use of insulin (HCC) Procedures CONSULT TO ENDOCRINOLOGY OFFICE/OUTPATIENT [facility] 60 MINUTES Yris Kelley APRN.CNP [address] [place] [address] Referral ID Status Reason Start Date Expiration Date Visits Requested Visits Authorized [id number] Authorized PCP Requested Referral 11/01/2023 10/31/2024 1 1 Additional Source Comments INFORMATION SOURCE (unrecogn ized section and content) DATE CREATED AUTHOR 06/26/2021 [facility] DATE CREATED AUTHOR AUTHOR'S ORGANIZ ATION 07/12/2021 [facility] DATE CREATED AUTHOR AUTHOR'S ORGANIZ ATION 07/31/2021 [facility] DATE CREATED AUTHOR AUTHOR'S ORGANIZ ATION 02/04/2024 [place] Source Comments (unrecognize d section and content) In the event this informatio n is protected by the Federal Confidentiality of Alcohol and Drug Abuse Patient Records regulations: The Federal rules restrict any use of the information to criminally investigate or prosecute any alcohol or drug abuse patient.[facility] HospitalIn the event this information is protected by the Federal Confidentiality of Alcohol and Drug Abuse Patient Records regulations: The Federal rules restrict any use of the information to criminally investigate or prosecute any alcohol or drug abuse patient.[facility] HospitalIn the event this information is protected by the Federal Confidentiality of Alcohol and Drug Abuse Patient Records regulations: The Federal rules restrict any use of the information to criminally investigate or prosecute any alcohol or drug abuse patient.[facility] HospitalIn the event this information is protected by the Federal Confidentiality of Alcohol and Drug Abuse Patient Records regulations: The Federal rules restrict any use of the information to criminally investigate or prosecute any alcohol or drug abuse patient.[facility] HospitalIn the event this information is protected by the Federal Confidentiality of Alcohol and Drug Abuse Patient Records regulations: The Federal rules restrict any use of the information to criminally investigate or prosecute any alcohol or drug abuse patient.[facility] HospitalIn the event this information is protected by the Federal Confidentiality of Alcohol and Drug Abuse Patient Records regulations: The Federal rules restrict any use of the information to criminally investigate or prosecute any alcohol or drug abuse patient.[facility] HospitalIn the event this information is protected by the Federal Confidentiality of Alcohol and Drug Abuse Patient Records regulations: The Federal rules restrict any use of the information to criminally investigate or prosecute any alcohol or drug abuse patient.[facility] HospitalIn the event this information is protected by the Federal Confidentiality of Alcohol and Drug Abuse Patient Records regulations: The Federal rules restrict any use of the information to criminally investigate or prosecute any alcohol or drug abuse patient.[facility] HospitalIn the event this information is protected by the Federal Confidentiality of Alcohol and Drug Abuse Patient Records regulations: The Federal rules restrict any use of the information to criminally investigate or prosecute any alcohol or drug abuse patient.[facility] HospitalIn the event this information is protected by the Federal Confidentiality of Alcohol and Drug Abuse Patient Records regulations: The Federal rules restrict any use of the information to criminally investigate or prosecute any alcohol or drug abuse patient.[facility] HospitalIn the event this information is protected by the Federal Confidentiality of Alcohol and Drug Abuse Patient Records regulations: The Federal rules restrict any use of the information to criminally investigate or prosecute any alcohol or drug abuse patient.[facility] HospitalIn the event this information is protected by the Federal Confidentiality of Alcohol and Drug Abuse Patient Records regulations: The Federal rules restrict any use of the information to criminally investigate or prosecute any alcohol or drug abuse patient.[facility] HospitalIn the event this information is protected by the Federal Confidentiality of Alcohol and Drug Abuse Patient Records regulations: The Federal rules restrict any use of the information to criminally investigate or prosecute any alcohol or drug abuse patient.[facility] HospitalIn the event this information is protected by the Federal Confidentiality of Alcohol and Drug Abuse Patient Records regulations: The Federal rules restrict any use of the information to criminally investigate or prosecute any alcohol or drug abuse patient.[facility] HospitalIn the event this information is protected by the Federal Confidentiality of Alcohol and Drug Abuse Patient Records regulations: The Federal rules restrict any use of the information to criminally investigate or prosecute any alcohol or drug abuse patient.[facility] HospitalIn the event this information is protected by the Federal Confidentiality of Alcohol and Drug Abuse Patient Records regulations: The Federal rules restrict any use of the information to criminally investigate or prosecute any alcohol or drug abuse patient.[facility] HospitalIn the event this information is protected by the Federal Confidentiality of Alcohol and Drug Abuse Patient Records regulations: The Federal rules restrict any use of the information to criminally investigate or prosecute any alcohol or drug abuse patient.[facility] HospitalIn the event this information is protected by the Federal Confidentiality of Alcohol and Drug Abuse Patient Records regulations: The Federal rules restrict any use of the information to criminally investigate or prosecute any alcohol or drug abuse patient.[facility] HospitalIn the event this information is protected by the Federal Confidentiality of Alcohol and Drug Abuse Patient Records regulations: The Federal rules restrict any use of the information to criminally investigate or prosecute any alcohol or drug abuse patient.[facility] HospitalIn the event this information is protected by the Federal Confidentiality of Alcohol and Drug Abuse Patient Records regulations: The Federal rules restrict any use of the information to criminally investigate or prosecute any alcohol or drug abuse patient.[facility] HospitalIn the event this information is protected by the Federal Confidentiality of Alcohol and Drug Abuse Patient Records regulations: The Federal rules restrict any use of the information to criminally investigate or prosecute any alcohol or drug abuse patient.[facility] HospitalIn the event this information is protected by the Federal Confidentiality of Alcohol and Drug Abuse Patient Records regulations: The Federal rules restrict any use of the information to criminally investigate or prosecute any alcohol or drug abuse patient.[facility] HospitalIn the event this information is protected by the Federal Confidentiality of Alcohol and Drug Abuse Patient Records regulations: The Federal rules restrict any use of the information to criminally investigate or prosecute any alcohol or drug abuse patient.[facility] HospitalIn the event this information is protected by the Federal Confidentiality of Alcohol and Drug Abuse Patient Records regulations: The Federal rules restrict any use of the information to criminally investigate or prosecute any alcohol or drug abuse patient.[facility] HospitalIn the event this information is protected by the Federal Confidentiality of Alcohol and Drug Abuse Patient Records regulations: The Federal rules restrict any use of the information to criminally investigate or prosecute any alcohol or drug abuse patient.[facility] HospitalIn the event this information is protected by the Federal Confidentiality of Alcohol and Drug Abuse Patient Records regulations: The Federal rules restrict any use of the information to criminally investigate or prosecute any alcohol or drug abuse patient.[facility] HospitalIn the event this information is protected by the Federal Confidentiality of Alcohol and Drug Abuse Patient Records regulations: The Federal rules restrict any use of the information to criminally investigate or prosecute any alcohol or drug abuse patient.[facility] HospitalIn the event this information is protected by the Federal Confidentiality of Alcohol and Drug Abuse Patient Records regulations: The Federal rules restrict any use of the information to criminally investigate or prosecute any alcohol or drug abuse patient.[facility] HospitalIn the event this information is protected by the Federal Confidentiality of Alcohol and Drug Abuse Patient Records regulations: The Federal rules restrict any use of the information to criminally investigate or prosecute any alcohol or drug abuse patient.[facility] HospitalIn the event this information is protected by the Federal Confidentiality of Alcohol and Drug Abuse Patient Records regulations: The Federal rules restrict any use of the information to criminally investigate or prosecute any alcohol or drug abuse patient.[facility] HospitalIn the event this information is protected by the Federal Confidentiality of Alcohol and Drug Abuse Patient Records regulations: The Federal rules restrict any use of the information to criminally investigate or prosecute any alcohol or drug abuse patient.[facility] HospitalIn the event this information is protected by the Federal Confidentiality of Alcohol and Drug Abuse Patient Records regulations: The Federal rules restrict any use of the information to criminally investigate or prosecute any alcohol or drug abuse patient.[facility] HospitalIn the event this information is protected by the Federal Confidentiality of Alcohol and Drug Abuse Patient Records regulations: The Federal rules restrict any use of the information to criminally investigate or prosecute any alcohol or drug abuse patient.[facility] HospitalIn the event this information is protected by the Federal Confidentiality of Alcohol and Drug Abuse Patient Records regulations: The Federal rules restrict any use of the information to criminally investigate or prosecute any alcohol or drug abuse patient.[facility] HospitalIn the event this information is protected by the Federal Confidentiality of Alcohol and Drug Abuse Patient Records regulations: The Federal rules restrict any use of the information to criminally investigate or prosecute any alcohol or drug abuse patient.[facility] HospitalIn the event this information is protected by the Federal Confidentiality of Alcohol and Drug Abuse Patient Records regulations: The Federal rules restrict any use of the information to criminally investigate or prosecute any alcohol or drug abuse patient.[facility] HospitalIn the event this information is protected by the Federal Confidentiality of Alcohol and Drug Abuse Patient Records regulations: The Federal rules restrict any use of the information to criminally investigate or prosecute any alcohol or drug abuse patient.[facility] HospitalIn the event this information is protected by the Federal Confidentiality of Alcohol and Drug Abuse Patient Records regulations: The Federal rules restrict any use of the information to criminally investigate or prosecute any alcohol or drug abuse patient.[facility] HospitalIn the event this information is protected by the Federal Confidentiality of Alcohol and Drug Abuse Patient Records regulations: The Federal rules restrict any use of the information to criminally investigate or prosecute any alcohol or drug abuse patient.[facility] HospitalIn the event this information is protected by the Federal Confidentiality of Alcohol and Drug Abuse Patient Records regulations: The Federal rules restrict any use of the information to criminally investigate or prosecute any alcohol or drug abuse patient.[facility] HospitalIn the event this information is protected by the Federal Confidentiality of Alcohol and Drug Abuse Patient Records regulations: The Federal rules restrict any use of the information to criminally investigate or prosecute any alcohol or drug abuse patient.[facility] HospitalIn the event this information is protected by the Federal Confidentiality of Alcohol and Drug Abuse Patient Records regulations: The Federal rules restrict any use of the information to criminally investigate or prosecute any alcohol or drug abuse patient.[facility] HospitalIn the event this information is protected by the Federal Confidentiality of Alcohol and Drug Abuse Patient Records regulations: The Federal rules restrict any use of the information to criminally investigate or prosecute any alcohol or drug abuse patient.[facility] HospitalIn the event this information is protected by the Federal Confidentiality of Alcohol and Drug Abuse Patient Records regulations: The Federal rules restrict any use of the information to criminally investigate or prosecute any alcohol or drug abuse patient.[facility] HospitalIn the event this information is protected by the Federal Confidentiality of Alcohol and Drug Abuse Patient Records regulations: The Federal rules restrict any use of the information to criminally investigate or prosecute any alcohol or drug abuse patient.[facility] HospitalIn the event this information is protected by the Federal Confidentiality of Alcohol and Drug Abuse Patient Records regulations: The Federal rules restrict any use of the information to criminally investigate or prosecute any alcohol or drug abuse patient.[facility] HospitalIn the event this information is protected by the Federal Confidentiality of Alcohol and Drug Abuse Patient Records regulations: The Federal rules restrict any use of the information to criminally investigate or prosecute any alcohol or drug abuse patient.[facility] HospitalIn the event this information is protected by the Federal Confidentiality of Alcohol and Drug Abuse Patient Records regulations: The Federal rules restrict any use of the information to criminally investigate or prosecute any alcohol or drug abuse patient.[facility] HospitalIn the event this information is protected by the Federal Confidentiality of Alcohol and Drug Abuse Patient Records regulations: The Federal rules restrict any use of the information to criminally investigate or prosecute any alcohol or drug abuse patient.[facility] Reason for Visit (unrecogniz ed section and [...] HEAD/BRAIN W/O CONTRAST MATERIAL Cuong Trujillo MD [address] [place] [address] Ct Imaging Referral ID Status Reason Start Date Expiration Date V isits Requested Visits Authorized [id number] Closed Auto-Generate d Referral 12/05/2021 01/03/2022 1 [...] HIGH MDM 60-74 MINUTES Cuong Trujillo MD [address] [place] [address] Referral ID Status Reason Start Date Expiration Date V isits Requested Visits Authorized [id number] Closed PCP Requested Referral Auto-Generated Referral 06/08/2022 [...] Date Comments Population Health Navigation Outreach 11/16/2023 [facility] Reason Onset Date Comments Refill Request 12/29/2023 Reason Onset Date Comments Refill Request 01/09/2024 Reason Onset Date Comments Population Health Navigation Outreach 02/02/2024 Heather [facility] Care Teams (unrecognized sec tion and content) Yield Clerk Relationship Specialty Start Date End Date Cuong Trujillo MD [address] [place], [place] [id number] PCP - General Family Practice 12/29/15 Yield Clerk Relationship Specialty Start Date End Date Cuong Trujillo MD [address] [place] [address] PCP - General Family Practice 12/29/15 Yield Clerk Relationship Specialty Start Date End Date Cuong Trujillo MD [address] [place] [address] PCP - General Family Practice 12/29/15 Yield Clerk Relationship Specialty Start Date End Date Cuong Trujillo MD [address] [place] [address] PCP - General Family Practice 12/29/15 Yield Clerk Relationship Specialty Start Date End Date Cuong Trujillo MD [address] [place] [address] PCP - General Family Practice 12/29/15 Yield Clerk Relationship Specialty Start Date End Date Cuong Trujillo MD [address] [place] [address] PCP - General Family Practice 12/29/15 Yield Clerk Relationship Specialty Start Date End Date Cuong Trujillo MD [address] [place] [address] PCP - General Family Practice 12/29/15 Yield Clerk Relationship Specialty Start Date End Date Cuong Trujillo MD [address] [place] [address] PCP - General Family Practice 12/29/15 Yield Clerk Relationship Specialty Start Date End Date Cuong Trujillo MD [address] [place] [address] PCP - General Family Practice 12/29/15 Yield Clerk Relationship Specialty Start Date End Date Cuong Trujillo MD [address] [place] [address] PCP - General Family Practice 12/29/15 Yield Clerk Relationship Specialty Start Date End Date Cuong Trujillo MD [address] [place] [address] PCP - General Family Practice 12/29/15 Yield Clerk Relationship Specialty Start Date End Date Cuong Trujillo MD [address] [place] [address] PCP - General Family Practice 12/29/15 Yield Clerk Relationship Specialty Start Date End Date Cuong Trujillo MD [address] [place] [address] PCP - General Family Practice 12/29/15 Yield Clerk Relationship Specialty Start Date End Date Cuong Trujillo MD [address] [place] [address] PCP - General Family Practice 12/29/15 Yield Clerk Relationship Specialty Start Date End Date Cuong Trujillo MD [address] [place] [address] PCP - General Family Medicine 12/29/15 Yield Clerk Relationship Specialty Start Date End Date Cuong Trujillo MD [address] [place] [address] PCP - General Family Medicine 12/29/15 Yield Clerk Relationship Specialty Start Date End Date Cuong Trujillo MD [address] [place] [address] PCP - General Family Medicine 12/29/15 Yield Clerk Relationship Specialty Start Date End Date Cuong Trujillo MD [address] [place] [address] PCP - General Family Medicine 12/29/15 Yield Clerk Relationship Specialty Start Date End Date Cuong Trujillo MD [address] [place] [address] PCP - General Family Medicine 12/29/15 Yield Clerk Relationship Specialty Start Date End Date Cuong Trujillo MD [address] [place] [address] PCP - General Family Medicine 12/29/15 Yield Clerk Relationship Specialty Start Date End Date Cuong Trujillo MD [address] [place] [address] PCP - General Family Medicine 12/29/15 Yield Clerk Relationship Specialty Start Date End Date Cuong Trujillo MD [address] [place] [address] PCP - General Family Medicine 12/29/15 Yield Clerk Relationship Specialty Start Date End Date Cuong Trujillo MD [address] [place] [address] PCP - General Family Medicine 12/29/15 Yield Clerk Relationship Specialty Start Date End Date Cuong Trujillo MD [address] [place] [address] PCP - General Family Medicine 12/29/15 Yield Clerk Relationship Specialty Start Date End Date Cuong Trujillo MD [address] [place] [address] PCP - General Family Medicine 12/29/15 Yield Clerk Relationship Specialty Start Date End Date Cuong Trujillo MD [address] [place] [address] PCP - General Family Medicine 12/29/15 Yield Clerk Relationship Specialty Start Date End Date Cuong Trujillo MD [address] [place], [place] [address] PCP - General Family Medicine 12/29/15 Yield Clerk Relationship Specialty Start Date End Date Cuong Trujillo MD [address] [place], [place] [address] PCP - General Family Medicine 12/29/15 Yield Clerk Relationship Specialty Start Date End Date Cuong Trujillo MD [address] [place], [place] [address] PCP - General Family Medicine 12/29/15 Yield Clerk Relationship Specialty Start Date End Date Cuong Trujillo MD [address] [place], [place] [id number] PCP - General Family [facility] 12/29/15 Yield Clerk Relationship Specialty Start Date End Date Cuong Trujillo MD [address] [place], [place] [address] PCP - General [facility] 12/29/15 Yield Clerk Relationship Specialty Start Date End Date Cuong Trujillo MD [address] [place], [place] [address] PCP - General Family [facility] 12/29/15 FOR RECORDS PERTAINING TO PATIENTS [...] BE BASED ON THE PRIMARY CLINICAL RECORDS. [facility] [employer] [facility]. provides no warranty or guarantee of the accuracy or completeness of information in this document.
[2024-02-06 13:06] LABS: Allen Test Positive; Base Excess -6 mmol/L (-2 to +2); Bicarbonate 18.6 mmol/L (22-26); Blood Gas Specimen Type ART; Mode Not entered; O2 Delivery Device Room Air; PO2 78 mmHG (75-100); SITE L Radial; SO2 96 % (95-99); Total Carbon Dioxide 19 mmol/L; pCO2 27.2 mmHg (35-45); pH 7.44 (7.35-7.45)
--- NOTE | 2024-02-06 13:11 | NURSING ---
ZEKE KILGORE DKA, VIRAL SYNDROME, UTI, WEAKNESS, DEHYDRATION
--- OUTSIDE RECORDS SUMMARY | 2024-02-06 13:43 | XMS RPT_ITS | CCD ---
Author Organization [facility] Inform ion Partnership [facility] Care Team Providers Care 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 Instructor Name Role Phone MIKO ROCA MD Attending [...] (1 source) Cat Animal Allergy (Dander) 7 [facility] Dogs (1 source) Dog Animal Allergy (Dander) 7 [facility] Dust (1 source) Dust Substance Allergy 7 [facility] Glycopeptides (antibiotic) (1 source) Vancomycin Drug Allergy 2 Other: See Comments [facility] Latex (1 source) Latex Substance Allergy 7 [facility] Lincosamides (antibiotic) (1 source) Clindamycin Drug Allergy 9 Hives [facility] Mold Extract (1 source) Mold Extract Drug Allergy 7 [facility] Work Phone: pregabalin (1 source) pregabalin Drug Allergy 9 Swelling [facility] (1 source) 05/10/16 (+) MRSA WOUND; Translations: [05/10/16 (+) MRSA WOUND] Propensity to adverse reactions (disorder) [facility] Repository (20 sources) Cat; Translations: [CATS] Propensity to adverse reactions 7 [facility] Work Phone: (20 sources) Clindamycin; Translations: [CLINDAMYCIN] Drug Allergy 9 Hives [facility] Work Phone: (20 sources) Dog; Translations: [DOGS] Propensity to adverse reactions 7 [facility] Work Phone: (20 sources) Dust; Translations: [DUST] Propensity to adverse reactions 7 [facility] Work Phone: (20 sources) House dust mite; Translations: [DUST MITES] Propensity to adverse reactions 7 [facility] Work Phone: (20 sources) Latex; Translations: [LATEX] Propensity to adverse reactions 7 [facility] Work Phone: (20 sources) Mold Extract; Translations: [MOLD] Drug Allergy 7 [facility] Work Phone: (20 sources) pregabalin; Translations: [PREGABALIN] Drug Allergy 9 Swelling [facility] (20 sources) Bees; Translations: [BEES] Propensity to adverse reactions 7 [facility] Work Phone: (20 sources) Vancomycin; Translations: [VANCOMYCIN] Drug Allergy 2 Other: See Comments [facility] Medications Current Medications Medication Drug Class(es) [...] on above: Take 1 capsule by mo [facility] twice daily for 7 days. [id number] 0.3 ml EPINEPHrine 1 mg/ml auto-injector (20 [...] Comment on above: Take 1 capsule by [facility] twice daily with meals for 7 [...] Comment on above: Take 1 tablet by [facility] once daily. mupirocin 0.02 mg/mg topical [...] 25-hydroxyvitamin D3 [Mass/Vol] 29.4 ng/mL Low 31.0-80.0 [facility] Comment on above: Order Comment: Marilin alejandro Type: BLOOD SPECIMEN Ordering Facility: [facility] Address: [address] [place] [address] [address] [place] [id number] Performed By: #### 2 498-4, 2131-9, 6-4, 2730-8 #### [facility] CLIA [id number] [address] [place] [address] [place] Ferritin SerPl-mCncon 2023 Ferritin [Mass/Vol] 163.0 ng/mL Normal 14.7-205.1 [facility] Comment on above: Order Comment: Marilin alejandro Type: BLOOD SPECIMEN Ordering Facility: [facility] Address: [address] [place] [address] [place] [address] Performed By: #### 2 498-4, 2131-9, 2275-4, 2730-8 #### [facility] CLIA [id number] [address] [place] [id number] [place] Iron SerPl-mCncon 02-01-2024 Iron [Mass/Vol] 91 ug/dL Normal 41-186 [facility] Comment on above: Order Comment: Speci men Type: BLOOD SPECIMEN Ordering Facility: [facility] Address: [address] [place] [address] Performed By: #### 2 498-4, 2131-9, 2275-4, 2730-8 #### [facility] CLIA [id number] [address] [place] [address] [place] PTH-Intact SerPl-mCncon 01-22 Parathyrin.intact [Mass/Vol] 19 pg/mL Normal 15-65 [facility] Comment on above: Order Comment: Speci men Type: BLOOD SPECIMEN Ordering Facility: [facility] Address: [address] [place] [address] Performed By: #### 2 498-4, 2131-9, 2275-4, 2730-8 #### [facility] CLIA [id number] [address] [place] [address] [place] Vit B12 SerPl-mCncon 024 Cobalamin (Vitamin B12) [Mass/Vol] 1212 pg/mL Normal 232-1245 [facility] Comment on above: Order Comment: Speci men Type: BLOOD SPECIMEN Ordering Facility: [facility] Address: [address] [place] [address] Performed By: #### 2 498-4, 2131-9, 2275-4, 2730-8 #### [facility] CLIA [id number] [address] [place] [address] [place] HBA1C (OUTSIDE)on 01-20-2024 HbA1c (Bld) [Mass fraction] 12.8 % [facility] Comment on above: @ endo [facility] Endo [facility] CNPNon 11-01-2023 CNPN Telephone (FAMPWS) DILEEPPHYLICIA ([id number]) 1965 F Date Time Provider Department 11/01/23 [facility] During your visit today, we recorded the [...] back to Dr. Osman . (Endo in [place].) JACOBO Kat Christy, APRN.CNP 11/01/2023 5:58 PM [...] of insulin (HCC) [E11.8] Order(s):CONSULT TO ENDOCRINOLOGY [0225] Order #: [id number]: 1 FUTURE Prescriptions as of 11/01/2023 - [...] shoulder [M (more content not included)... Normal [facility] HbA1c (Bld)on 10-28-2023 Average glucose Estimated from glycated hemoglobin (Bld) [Mass/Vol] 275 mg/dL Normal [facility] Comment on above: Order Comment: Marilin alejandro Type: BLOOD SPECIMEN Ordering Facility: [facility] Address: [facility] [place] [address] Result Comment: eAG: (Estimated average glucose) is a calculated value from HgbA1c and is technical support representative of the average blood glucose level in the last 2-3 month period. Performed By: #### 2 498-4, 2131-9, 2275-4, 2730-12 #### [facility] CLIA [id number] [address] [place] [address] [place] HbA1c (Bld) [Mass fraction] 11.2 % High 4.3-5.6 [facility] Comment on above: Order Comment: Marilin alejandro Type: BLOOD SPECIMEN Ordering Facility: [facility] Address: [facility] [address] Result Comment: Amer [place] Diabetes Association guidelines indicate that patients with HgbA1c in the range 5.7-6.4% are at increased risk for development of diabetes, and intervention by lifestyle modification may be beneficial. HgbA1c greater or equal to 6.5% is considered diagnostic of diabetes. Performed By: #### 2 498-4, 9, 2275-4, 8 #### [facility] CLIA [id number] [address] [place] [address] [place] T3 SerPl-mCncon 10-28-2023 T3 [Mass/Vol] 192 ng/dL High 79-165 [facility] Comment on above: Order Comment: Marilin alejandro Type: BLOOD SPECIMEN Ordering Facility: [facility] Address: [facility] [place] [address] Performed By: #### 2 498-4, 2131-9, 2275-4, 2730-8 #### [facility] CLIA [id number] [address] [place], [place] [address] [place] T4 Free SerPl-mCncon 024 Free T4 [Mass/Vol] 0.8 ng/dL Low 0.9-1.7 [facility] Comment on above: Order Comment: Speci men Type: BLOOD SPECIMEN Ordering Facility: [facility] Address: [facility] [address] [place] [id number] Performed By: #### 2 498-4, 2132-9, 2276-4, 2731-8 #### [facility] CLIA [id number] [address] [place], [place] [address] [place] TSH SerPl-aCncon 10-28-2023 TSH Qn 1.200 m[IU]/L Normal 0.270-4.20 0 [facility] Comment on above: Order Comment: Speci men Type: BLOOD SPECIMEN Ordering Facility: [facility] Address: [address] [place] [address] [place] [address] Performed By: #### 2 498-4, 2-9, 6-4, 2731-8 #### [facility] CLIA [id number] [address] [place], [place] [address] [facility] [place] CNCOon 04-21-2023 CNCO HNO ID: [id number] Author: Coordinator, Mammography Service: ? Author Type: Physician Type: Letter Filed: 04/22/2023 11:32 PM Note Text: April 21, 2023 PID: [id number] Phylicia Falk [address] [place] [address] Dear Ms. Falk, We are pleased to [...] report will be kept on file at [facility] as part of your permanent medical record and are available for your continuing care. Thank you for allowing us to help in meeting your health care needs. Sincerely, Dr. Madison Interpreting Radiologist [facility] (Normal over 40) Normal [facility] SCREENINGon 04-21-2023 [facility] SCREENING * * *Final Report* * * DATE OF EXAM: Apr 21 2023 9:27AM [id number] - [facility] SCREENING / PROCEDURE REASON: Encounter for screening mammogram for breast cancer * * * * Physician Interpretation * * * * RESULT: #[id number] - [facility] SCREENING BILATERAL DIGITAL SCREENING MAMMOGRAM WITH CAD: [...] System, 11/07/2018 mammogram, and 11/03/2017 mammogram - [facility]. There are scattered areas of fibroglandular density. No significant masses, calcifications, or other findings are seen in either breast. There has been no significant interval change. IMPRESSION: NEGATIVE There is no mammographic evidence of malignancy. A 1 year screening mammogram is recommended. Alexi Madison M.D. fa/penrad:04/21/2023 10:51:27 Medical Doctor Nuclear Medicine(s): RT Karla(Neymar)(M), [facility] letter [...] Health, Family Medicine, and Medical/Surgical Oncology, the [facility] has carefully reviewed the data and [...] their providers when to stop screening mammograms. Car Wash Attendant: Dima Transcribe Date/Time: Apr 21 2023 8:57A Dictated by: ALEXI MADISON MD This examination was interpreted and the report reviewed and electronically signed by: ALEXI MADISON MD on Apr 21 2023 10:51AM EST [id number] Normal [facility] CNOVon 04-13-2023 CNOV Office Visit (FAMPWS ) FALKPHYLICIA ([id number]) 1965 F Date Time Provider Department 04/13/23 8:00 AM YRIS KELLEY During your visit today, we recorded the following information about you: Pulse Respiration Blood pressure 98/minute 16/minute 104/72 Yris Kelley APRN.PURE CULTURE OPERATOR 04/13/2023 12:35 PM Signed This is a [...] type 2, controlled, without complications ([facility]) 08/12/2017 Muscle spasm Myalgia and myositis, unspecified [...] without long-term (more content not included)... Normal [facility] PAIN PANEL, UR QUANTon 04-13 0-Bjnncvjute-7,5-D imethyl-3,3-Diphen ylpyrrolidine (EDDP) Confirm (U) [Mass/Vol] <6 Normal <6 [facility] Comment on above: Order Comment: Speci men Type: BLOOD SPECIMEN Ordering Facility: [facility] Address: [address] [place] [address] [address] [place] [address] Result Comment: EDDP is a metabolite of methadone. Performed By: #### 2 498-4, 2132-9, 2276-4, 2731-8 #### [facility] CLIA [id number] [address] [place] [address] [place] 6-Monoacetylmorphi ne (6-BALTAZAR) (U) [Mass/Vol] <5 Normal <5 [facility] Comment on above: Order Comment: Speci men Type: BLOOD SPECIMEN Ordering Facility: [facility] Address: [facility] [address] Result Comment: 6-MA M (6-monoacetylmorphine, also known as 6-acetylmorphine) is a unique metabolite of heroin. Presence of 6-BALTAZAR indicates use of heroin. 6-BALTAZAR is further metabolized to morphine and absence of 6-BALTAZAR does not rule out the use of heroin. Performed By: #### 2 498-4, 2131-9, 2275-08, 2730-12 #### [facility] CLIA [id number] [address] [place] [address] [place] Amphetamine Confirm (U) [Mass/Vol] <5 Normal <5 [facility] Comment on above: Order Comment: Speci men Type: BLOOD SPECIMEN Ordering Facility: [facility] Address: [address] [place] [address] [place] [address] Performed By: #### 2 498-4, 9, 2275-08, 2730-12 #### [facility] CLIA [id number] [address] [place] [address] [place] Benzoylecgonine Confirm (U) [Mass/Vol] <24 Normal <24 [facility] Comment on above: Order Comment: Speci men Type: BLOOD SPECIMEN Ordering Facility: [facility] Address: [address] [place] [address] [place] [address] Result Comment: Braulio oylecgonine is a metabolite of cocaine. Performed By: #### 2 498-4, 9, 2275-08, 2730-12 #### [facility] CLIA [id number] [address] [place] [address] [place] Buprenorphine (U) [Mass/Vol] <20 Normal <20 [facility] Comment on above: Order Comment: Speci men Type: BLOOD SPECIMEN Ordering Facility: [facility] Address: [address] [place] [address] Performed By: #### 2 498-4, 9, 4, 8 #### [facility] CLIA [id number] [address] [address] [place] Cannabinoids Confirm (U) [Mass/Vol] <16 Normal <16 [facility] Comment on above: Order Comment: Speci men Type: BLOOD SPECIMEN Ordering Facility: [facility] Address: [facility] [address] Result Comment: Tetr ahydrocannabinol carboxylic acid (THCA) is a metabolite of nfdbj-8-yswoqlefdbeysdrtuaah which is the main active component of marijuana. Performed By: #### 2 498-4, 9, 4, 8 #### [facility] CLIA [id number] [address] [place] [id number] [place] Codeine Confirm (U) [Mass/Vol] <11 Normal <11 [facility] Comment on above: Order Comment: Speci men Type: BLOOD SPECIMEN Ordering Facility: [facility] Address: [facility] [address] Performed By: #### 2 498-4, 9, 4, 8 #### [facility] CLIA [id number] [address] [address] [place] Dihydrocodeine Confirm (U) [Mass/Vol] <5 Normal <5 [facility] Comment on above: Order Comment: Speci men Type: BLOOD SPECIMEN Ordering Facility: [facility] Address: [facility] [address] Performed By: #### 2 498-4, 9, 2275-4, 8 #### [facility] CLIA [id number] [address] [address] [place] fentaNYL Confirm (U) [Mass/Vol] <6 Normal <6 [facility] Comment on above: Order Comment: Speci men Type: BLOOD SPECIMEN Ordering Facility: [facility] Address: [facility] [place] [address] Performed By: #### 2 498-4, 9, 4, 8 #### [facility] CLIA [id number] [address] [place] [address] [place] HYDROcodone Confirm (U) [Mass/Vol] <8 Normal <8 [facility] Comment on above: Order Comment: Speci men Type: BLOOD SPECIMEN Ordering Facility: [facility] Address: [address] [place] [address] [place] [address] Result Comment: Hydr ocodone is a metabolite of dihydrocodeine. Performed By: #### 2 498-4, 9, 2275-08, 2730-12 #### [facility] CLIA [id number] [address] [place] [address] [place] HYDROmorphone Confirm (U) [Mass/Vol] <5 Normal <5 [facility] Comment on above: Order Comment: Speci men Type: BLOOD SPECIMEN Ordering Facility: [facility] Address: [facility] [place] [address] Result Comment: Hydr omorphone is a metabolite of hydrocodone. Performed By: #### 2 498-4, 2132-01, 2275-08, 2730-12 #### [facility] CLIA [id number] [address] [place], [place] [address] [place] Methadone Confirm (U) [Mass/Vol] <16 Normal <16 [facility] Comment on above: Order Comment: Speci men Type: BLOOD SPECIMEN Ordering Facility: [facility] Address: [facility] [address] Performed By: #### 2 498-4, 9, 2275-08, 2730-12 #### [facility] CLIA [id number] [address] [address] [place] Methamphetamine Confirm (U) [Mass/Vol] <8 Normal <8 [facility] Comment on above: Order Comment: Speci men Type: BLOOD SPECIMEN Ordering Facility: [facility] Address: [facility] [place] [address] Performed By: #### 2 498-4, 9, 2275-08, 8 #### [facility] CLIA [id number] [address] [address] [place] Morphine Confirm (U) [Mass/Vol] <10 Normal <10 [facility] Comment on above: Order Comment: Speci men Type: BLOOD SPECIMEN Ordering Facility: [facility] Address: [address] [place] [address] [place] [address] Result Comment: Morp luba is a metabolite of codeine and heroin. Performed By: #### 2 498-4, 9, 2275-08, 8 #### [facility] IA [id number] [address] [place] [address] [place] Norbuprenorphine (U) [Mass/Vol] <20 Normal <20 [facility] Comment on above: Order Comment: Speci men Type: BLOOD SPECIMEN Ordering Facility: [facility] Address: [address] [place] [address] [place] [address] Result Comment: Norb uprenorphine is the primary active metabolite of buprenorphine. Performed By: #### 2 498-4, 9, 2275-08, 8 #### [facility] CLIA [id number] [address] [place] [id number] [place] Norfentanyl Confirm (U) [Mass/Vol] <6 Normal <6 [facility] Comment on above: Order Comment: Speci men Type: BLOOD SPECIMEN Ordering Facility: [facility] Address: [address] [place] [address] [place] [address] Result Comment: Norf entanyl is a metabolite of fentanyl. Performed By: #### 2 498-4, 9, 2275-08, 2730-12 #### [facility] CLIA [id number] [address] [place] [address] [place] Nortramadol (U) [Mass/Vol] <20 Normal <20 [facility] Comment on above: Order Comment: Speci men Type: BLOOD SPECIMEN Ordering Facility: [facility] Address: [address] [place] [address] [place] [address] Result Comment: Desm ethyltramadol is a metabolite of tramadol. Performed By: #### 2 498-4, 2132-01, 2275-08, 2730-12 #### [facility] CLIA [id number] [address] [place] [address] [place] NOTE,UR PAIN ZAMAN Normal [facility] Comment on above: Order Comment: Speci men Type: BLOOD SPECIMEN Ordering Facility: [facility] Address: [address] [place] [address] [place] [address] Result Comment: This test is for medical use only. This test was developed and its performance characteristics determined by [facility]'s Mehul Jong [facility] [place] (-[facility]). It has not been cleared or approved by the FDA. -[facility] is regulated under CLIA as qualified to perform high-complexity testing. This test is used for clinical purposes. It should not be regarded as investigational or for research. Performed By: #### 2 498-4, 9, 2275-08, 2730-12 #### [facility] CLIA [id number] [address] [place] [id number] [place] oxyCODONE Confirm (U) [Mass/Vol] <10 Normal <10 [facility] Comment on above: Order Comment: Speci men Type: BLOOD SPECIMEN Ordering Facility: [facility] Address: [address] [place] [address] [place] [address] Performed By: #### 2 498-4, 2132-01, 2275-08, 8 #### [facility] CLIA [id number] [address] [place] [id number] [place] oxyMORphone Confirm (U) [Mass/Vol] <5 Normal <5 [facility] Comment on above: Order Comment: Speci men Type: BLOOD SPECIMEN Ordering Facility: [facility] Address: [address] [place] [address] [place] [address] Result Comment: Oxym orphone is a metabolite of oxycodone. Performed By: #### 2 498-4, 9, 2275-4, 2730-8 #### [facility] IA [id number] [address] [place] [address] [place] traMADol Confirm (U) [Mass/Vol] <25 Normal <25 [facility] Comment on above: Order Comment: Speci men Type: BLOOD SPECIMEN Ordering Facility: [facility] Address: [address] [place] [address] [place] [address] Performed By: #### 2 498-4, 2131-9, 2275-4, 2730-8 #### [facility] IA [id number] [address] [place] [address] [place] SPECIMEN VALIDITY, URINEon 06-13-2022 CHROMATE,URINE <10 Normal <50 [facility] Comment on above: Order Comment: Speci men Type: BLOOD SPECIMEN Ordering Facility: [facility] Address: [facility] [address] Performed By: #### 2 498-4, 2131-9, 2275-4, 2730-8 #### [facility] IA [id number] [address] [place] [address] [place] CREATININE,URINE 263.6 mg/dL Normal 20.0-300.0 [facility] Comment on above: Order Comment: Speci men Type: BLOOD SPECIMEN Ordering Facility: [facility] Address: [address] [place] [address] [address] [place] [id number] Performed By: #### 2 498-4, 9, 2275-4, 2730-8 #### [facility] CLIA [id number] [address] [address] [place] NITRITES,URINE <50 Normal <500 [facility] Comment on above: Order Comment: Speci men Type: BLOOD SPECIMEN Ordering Facility: [facility] Address: [facility] [place] [address] Performed By: #### 2 498-4, 9, 2275-4, 2730-8 #### [facility] CLIA [id number] [address] [place], [place] [address] [place] OXIDANTS,URINE <38 Normal <200 [facility] Comment on above: Order Comment: Speci men Type: BLOOD SPECIMEN Ordering Facility: [facility] Address: [facility] [address] [place] [id number] Performed By: #### 2 498-4, 9, 4, 2730-8 #### [facility] CLIA [id number] [address] [place], [place] [address] [place] pH (U) 5.6 [pH] Normal 4.5-8.0 [facility] Comment on above: Order Comment: Speci men Type: BLOOD SPECIMEN Ordering Facility: [facility] Address: [facility] [place] [address] Performed By: #### 2 498-4, 9, 4, 8 #### [facility] CLIA [id number] [address] [address] [place] SPEC GRAVITY,UR 1.023 Normal 1.003-1.03 5 [facility] Comment on above: Order Comment: Speci men Type: BLOOD SPECIMEN Ordering Facility: [facility] Address: [facility] [place] [address] Performed By: #### 2 498-4, 9, 2275-4, 2730-8 #### [facility] CLIA [id number] [address] [place] [id number] [place] SPECIMEN VALIDITY QUALITY Specimen quality results within acceptable limits Normal [facility] Comment on above: Order Comment: Speci men Type: BLOOD SPECIMEN Ordering Facility: [facility] Address: [address] [place] [address] [place] [address] Performed By: #### 2 498-4, 9, 4, 8 #### [facility] CLIA [id number] [address] [place] [address] [place] TOX SCREEN ROUT URon 11-21-2 023 Amphetamines Confirm (U) [Mass/Vol] Negative Negative [facility] Barbiturates Urine Negative Negative [facility] Benzodiazepines Urine Negative Negative [facility] Cannabinoids Screen Ql (U) Negative Negative [facility] Cocaine Ql (U) Negative Negative [facility] Ethanol (U) [Mass/Vol] <11 mg/dL [facility] Opiates Screen Ql (U) Negative Negative [facility] oxyCODONE cutoff Screen (U) [Mass/Vol] Negative Negative [facility] Phencyclidine Ql (U) Negative Negative [facility] Amphetamines Confirm (U) [Mass/Vol] Negative Normal Negative [facility] Comment on above: Order Comment: Speci men Type: BLOOD SPECIMEN Ordering Facility: [facility] Address: [address] [place] [address] [place] [address] Result Comment: Cuto ff threshold at 1000 ng/mL. Performed By: #### 2 498-4, 9, 2275-4, 2730-8 #### [facility] CLIA [id number] [address] [place] [address] [place] BARBITURATES, URINE Negative Normal Negative [facility] Comment on above: Order Comment: Speci men Type: BLOOD SPECIMEN Ordering Facility: [facility] Address: [address] [place] [address] [place] [address] Result Comment: Cuto ff threshold at 200 ng/mL. Performed By: #### 2 498-4, 2131-9, 2275-4, 2730-8 #### [facility] CLIA [id number] [address] [place] [address] [place] BENZODIAZEPINES, UR Negative Normal Negative [facility] Comment on above: Order Comment: Speci men Type: BLOOD SPECIMEN Ordering Facility: [facility] Address: [address] [place] [address] [place] [address] Result Comment: Cuto ff threshold at 200 ng/mL. Performed By: #### 2 498-4, 2131-9, 2275-4, 2730-8 #### [facility] CLIA [id number] [address] [place] [address] [place] Cannabinoids Screen Ql (U) Negative Normal Negative [facility] Comment on above: Order Comment: Speci men Type: BLOOD SPECIMEN Ordering Facility: [facility] Address: [address] [place] [address] [place] [address] Result Comment: Cuto ff threshold at 50 ng/mL. Performed By: #### 2 498-4, 2131-9, 2275-4, 2730-8 #### [facility] CLIA [id number] [address] [place] [address] [place] Cocaine Ql (U) Negative Normal Negative [facility] Comment on above: Order Comment: Speci men Type: BLOOD SPECIMEN Ordering Facility: [facility] Address: [address] [place] [address] [place] [address] Result Comment: Cuto ff threshold at 300 ng/mL. Performed By: #### 2 498-4, 2131-9, 2275-4, 2730-8 #### [facility] CLIA [id number] [address] [place] [address] [place] Ethanol (U) [Mass/Vol] <11 Normal <11 [facility] Comment on above: Order Comment: Speci men Type: BLOOD SPECIMEN Ordering Facility: [facility] Address: [address] [place] [address] Performed By: #### 2 498-4, 9, 2275-08, 2730-12 #### [facility] CLIA [id number] [address] [place] [address] [place] Opiates Screen Ql (U) Negative Normal Negative [facility] Comment on above: Order Comment: Speci men Type: BLOOD SPECIMEN Ordering Facility: [facility] Address: [facility] [place] [address] Result Comment: Cuto ff threshold at 300 ng/mL. Performed By: #### 2 498-4, 9, 2275-08, 2730-12 #### [facility] CLIA [id number] [address] [place] [address] [place] oxyCODONE cutoff Screen (U) [Mass/Vol] Negative Normal Negative [facility] Comment on above: Order Comment: Speci men Type: BLOOD SPECIMEN Ordering Facility: [facility] Address: [address] [place] [address] [place] [address] Result Comment: Cuto ff threshold at 100 ng/mL. Performed By: #### 2 498-4, 9, 2275-08, 2730-12 #### [facility] CLIA [id number] [address] [place] [address] [place] Phencyclidine Ql (U) Negative Normal Negative [facility] Comment on above: Order Comment: Speci men Type: BLOOD SPECIMEN Ordering Facility: [facility] Address: [address] [place] [address] [place] [address] Result Comment: Cuto ff threshold at 25 ng/mL. Performed By: #### 2 498-4, 9, 2275-08, 2730-12 #### [facility] CLIA [id number] [address] [place] [address] [place] HbA1c (Bld)on 04-02-2023 Average glucose Estimated from glycated hemoglobin (Bld) [Mass/Vol] 177 mg/dL Normal [facility] Comment on above: Order Comment: Marilin alejandro Type: BLOOD SPECIMEN Ordering Facility: [facility] Address: [address] [place] [address] [place] [address] Result Comment: eAG: (Estimated average glucose) is a calculated value from HgbA1c and is technical support representative of the average blood glucose level in the last 2-3 month period. Performed By: #### 2 498-4, 2131-9, 2275-, 2730-12 #### [facility] CLIA [id number] [address] [place] [address] [place] HbA1c (Bld) [Mass fraction] 7.8 % High 4.3-5.6 [facility] Comment on above: Order Comment: Marilin alejandro Type: BLOOD SPECIMEN Ordering Facility: [facility] Address: [address] [place], [place] [address] [address] Result Comment: [place] Diabetes Association guidelines indicate that patients with HgbA1c in the range 5.7-6.4% are at increased risk for development of diabetes, and intervention by lifestyle modification may be beneficial. HgbA1c greater or equal to 6.5% is considered diagnostic of diabetes. Performed By: #### 2 498-4, 2131-9, 2275-4, 2730-12 #### [facility] CLIA [id number] [address] [place] [address] [place] Ulises 03-02-2023 [facility] PHYLICIA FALK ([id number]) 1965 F Date Time Provider Department 03/02/23 CUONG TRUJILLO [facility] During your visit today, we recorded the [...] Nuvigil was approved and patient notified through [facility] Anahi Kamara Ma, LPN 03/05/2023 10:21 AM Signed Edwin with [employer] called with authorization numbers for approvals below. 1) Armodafinil PA # [id number] for 12 months 03-04-23 thru 03-04-24 2) Mounjaro PA # [id number] for 12 months 03-04-23 thru 1-=12=24. 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 Allergies As of Date: 03/02/2023 Noted Allergy [...] Status:Closed by SHARYN HURT MA on 03/05/23 [facility] 02-11-2023 [facility] (CLAUDIA[facility]) PHYLICIA FALK ([id number]) 1965 F Date Time Provider Department 02/11/23 [facility] During your visit today, we recorded the following information about you: Sharyn Hurt Ma 02/11/2023 11:40 AM Signed Electronic PA submitted for Janumet Sharyn Hurt Ma, Sharyn 02/18/2023 9:57 AM Signed Called to check on status with Irina and advised need to call Heather who is handling PA Heather RUBIO number [phone] Spoke to Heather Corral who checked on status of PA and is still pending and pushed to expedite due to being diabetic Home Keller Ma, RN 02/19/2023 5:04 PM Signed Norah - [facility] - phoned to report Joseumet has [...] MONTES DE OCA LPN on 02/22/23 Normal [facility] UA DIP, URINE (POC)on 2022 BILIRUBIN UA (POCT) Small Abnormal Negative [facility] CLARITY UA (POCT) Slightly Cloudy Cl [facility] COLOR UA (POCT) Dark yellow [facility] GLUCOSE UA (POCT) Negative Negative mg/dL [facility] HEMOGLOBIN/BLOOD UA (POCT) Moderate Abnormal Negative [facility] KETONE UA (POCT) Trace Negative mg/dL [facility] LEUKOCYTES UA (POCT) Small Abnormal Negative [facility] NITRITE UA (POCT) Negative Negative [facility] PH UA (POCT) 5.0 4.5 - 8.0 [facility] Protein Ql (U) 100 mg/dL Abnormal Negative mg/dL [facility] SPECIFIC GRAVITY UA (POCT) >=1.030 1.005 - 1.030 [facility] UROBILINOGEN UA (POCT) 0.2 E.U./dL Normal E.U./dL [facility] CT BRAIN WO IVCONon 12-13-19 [facility] No Panel Informationon 11-13 [facility] BMP with eGFRon 07-09-2021 AGE 55 years Normal [facility] Comment on above: Performed By: #### 2 92995 #### [facility],[address] [place] [address] Anion gap [Moles/Vol] 20 mmol/L Normal 10 - 20 [facility] Comment on above: Performed By: #### 2 77627 #### [facility],[address] [place] [address] BMP with eGFR Normal [facility] Comment on above: Result Comment: BASI C METABOLIC PANEL Performed By: #### 2 41903 #### [facility],[address] [place] [address] Calcium [Mass/Vol] 10.2 mg/dL High 8.5 - 10.1 [facility] Comment on above: Performed By: #### 2 81096 #### [facility],[address] [place] [address] Chloride [Moles/Vol] 99 mmol/L Normal 98 - 107 [facility] Comment on above: Performed By: #### 2 77640 #### [facility],[address] [place] [address] CO2 [Moles/Vol] 22.5 mmol/L Normal 21.0 - 32.0 [facility] Comment on above: Performed By: #### 2 97462 #### [facility],[address] [place] [address] Creatinine [Mass/Vol] 0.76 mg/dL Normal 0.55 - 1.02 [facility] Comment on above: Performed By: #### 2 74471 #### [facility],[address] [place] [address] GFR/1.73 sq M.predicted among non-blacks MDRD (S/P/Bld) [Vol rate/Area] mL/min/{1.73_m2} Normal 60 - 999 [facility] Comment on above: Performed By: #### 2 93897 #### [facility],[address] [place] [address] Result Comment: ACCO RDING TO THE NATIONAL KIDNEY DISEASE EDUCATION PROGRAM(NKDE), A NORMAL eGFR IS A VALUE GREATER THAN OR EQUAL TO 60 ML/MIN/1.73 SQ METERS. CHRONIC KIDNEY DISEASE: <60mL/MIN/1.73 SQ METERS KIDNEY FAILURE: <15mL/MIN/1.73 SQ METERS THIS TEST SHOULD ONLY BE USED FOR PATIENTS 18 YEARS OF AGE AND OLDER. Glucose [Mass/Vol] 193 mg/dL High 74 - 106 [facility] Comment on above: Performed By: #### 2 74416 #### [place] [address] Potassium [Moles/Vol] 4.0 mmol/L Normal 3.5 - 5.1 [facility] Comment on above: Performed By: #### 2 16364 #### [facility],[address] [place] [address] Sodium [Moles/Vol] 137 mmol/L Normal 136 - 145 [facility] Comment on above: Performed By: #### 2 49291 #### [facility],[address] [place] [address] Urea nitrogen [Mass/Vol] 16 mg/dL Normal 7 - 18 [facility] Comment on above: Performed By: #### 2 44192 #### [facility],[address] [place], [place] [address] C-REACTIVE PROTEINon 022 CRP 2.80 mg/dl High 0.00 - 0.90 [facility] Comment on above: Performed By: #### 2 37975 #### [facility],[address] [place], [place] [address] CBC + DIFFon 07-09-2021 Baso # 0.10 x10EE3/UL Normal 0.00 - 0.10 [facility] Comment on above: Performed By: #### 2 02751 #### [facility],[address] [place] [address] Basophils/100 WBC (Bld) 1.0 % Normal 0.0 - 2.0 [facility] Comment on above: Performed By: #### 2 78162 #### [facility],[address] [place] [address] CBC + DIFF Normal [facility] Comment on above: Result Comment: CBC- COMPLETE BLOOD COUNT Performed By: #### 2 92590 #### [facility],[address] [place] [address] EO # 0.40 x10EE3/UL Normal 0.00 - 0.50 [facility] Comment on above: Performed By: #### 2 90072 #### [facility],[address] [place], [place] [address] Eosinophils/100 WBC (Bld) 4.0 % Normal 0.0 - 7.0 [facility] Comment on above: Performed By: #### 2 64891 #### [facility],[address] [place] [address] Erythrocyte distribution width (RBC) [Ratio] 17.6 % High 12.0 - 15.6 [facility] Comment on above: Performed By: #### 2 31488 #### [facility],[address] [place] [address] Hematocrit (Bld) [Volume fraction] 31.8 % Low 34.0 - 46.0 [facility] Comment on above: Performed By: #### 2 33697 #### [facility],[address] [place], [place] [address] Hemoglobin (Bld) [Mass/Vol] 10.5 g/dL Low 12.0 - 16.0 [facility] Comment on above: Performed By: #### 2 09492 #### [facility],[address] [place] [address] Lymph # 1.70 x10EE3/UL Normal 0.80 - 2.80 [facility] Comment on above: Performed By: #### 2 07178 #### [facility],[address] [place] [address]4868 Lymphocytes/100 WBC (Bld) 16.8 % Low 20.0 - 45.0 [facility] Comment on above: Performed By: #### 2 07588 #### [facility],[address] [place] [address] MANUAL DIFF N/A Normal [facility] Comment on above: Performed By: #### 2 51446 #### [facility],[address] [place] [address] 26251 MCH (RBC) [Entitic mass] 30 pg Normal 27 - 33 [facility] Comment on above: Performed By: #### 2 45613 #### [facility],[address] [place] [address] MCHC 33 X10 3 Normal 32 - 36 [facility] Comment on above: Performed By: #### 2 13507 #### [facility],[address] [place] [address] 91011 MCV (RBC) [Entitic vol] 90 fL Normal 80 - 99 [facility] Comment on above: Performed By: #### 2 69380 #### [facility],[address] [place] [address] [place] # 0.50 x10EE3/UL Normal 0.20 - 1.00 [facility] Comment on above: Performed By: #### 2 13732 #### [facility],[address] [place] [address]2671 MONOS % 5.5 % Normal 0.0 - 10.0 [facility] Comment on above: Performed By: #### 2 31437 #### [facility],[address] [place] [address]4047 Morphology Raheem (Bld) [Interp] N/A Normal [facility] Comment on above: Result Comment: {CD] Performed By: #### 2 99093 #### [facility],[address] [place] [address] 25920 Neut # 7.20 x10EE3/UL High 1.50 - 7.10 [facility] Comment on above: Performed By: #### 2 35470 #### [facility],[address] [place] [address] 52533 Neutrophils/100 WBC (Bld) 72.7 % Normal 46.0 - 76.0 [facility] Comment on above: Performed By: #### 2 78703 #### [facility],[address] [place] [address] 20869 PLATELET 475 x10EE3/UL High 150 - 450 [facility] Comment on above: Performed By: #### 2 98773 #### [facility],[address] [place] [address] 27729 Platelet mean volume (Bld) [Entitic vol] 8.1 fL Normal 6.6 - 10.5 [facility] Comment on above: Result Comment: AUTO MATED DIFFERENTIAL Performed By: #### 2 95449 #### [facility],[address] [place] [address] 29176 RBC 3.54 x 10EE6/UL Low 4.10 - 5.30 [facility] Comment on above: Performed By: #### 2 16330 #### [facility],[address] [place] [address] 84355 WBC 9.9 x 10EE3/UL Normal 4.5 - 10.8 [facility] Comment on above: Performed By: #### 2 96468 #### [facility],[address] [place] [address] 45648 CPKon 07-09-2021 CPK 42 U/L Normal 26 - 192 [facility] Comment on above: Performed By: #### 2 05872 #### [facility],[address] [place] [address]278 HEPATIC FUNCTION PANELon Albumin [Mass/Vol] 2.9 g/dL Low 3.4 - 5.0 [facility] Comment on above: Performed By: #### 2 65088 #### [facility],[address] [place] [address] ALK PHOS 147 U/L High 46 - 116 [facility] Comment on above: Performed By: #### 2 72518 #### [facility],[address] [place] [address] ALT [Catalytic activity/Vol] 27 U/L Normal 14 - 59 [facility] Comment on above: Performed By: #### 2 70306 #### [facility],[address] [place] [address] AST [Catalytic activity/Vol] 20 U/L Normal 13 - 39 [facility] Comment on above: Performed By: #### 2 58227 #### [facility],[address] [place] [address] Bilirubin [Mass/Vol] 0.2 mg/dL Normal 0.2 - 1.0 [facility] Comment on above: Performed By: #### 2 83488 #### [facility],[address] [place] [address] Bilirubin.direct [Mass/Vol] 0.1 mg/dL Normal 0.0 - 0.2 [facility] Comment on above: Performed By: #### 2 14808 #### [facility],[address] [place], [place] [address] Hepatic function 2000 panel Normal [facility] Comment on above: Result Comment: HEPA TIC FUNCTION PROFILE Performed By: #### 2 42010 #### [facility],[address] [place], [place] [address] Protein [Mass/Vol] 8.4 g/dL High 6.4 - 8.2 [facility] Comment on above: Performed By: #### 2 90566 #### [facility],[address] [place] [address] 84425 SEDRATEon 07-09-2021 SEDRATE 116 mm/hr High 0 - 30 [facility] Comment on above: Performed By: #### 2 63001 #### [facility],[address] [place] [address] 84000 BMP with eGFRon 07-03-2021 AGE 55 years Normal [facility] Comment on above: Performed By: #### 2 03297 #### [facility],[address] [place] [address] 86587 Anion gap [Moles/Vol] 18 mmol/L Normal 10 - 20 [facility] Comment on above: Performed By: #### 2 62148 #### [facility],[address] [place] [address] 26026 BMP with eGFR Normal [facility] Comment on above: Result Comment: BASI C METABOLIC PANEL Performed By: #### 2 43035 #### [facility],[address] [place] [address] 40156 Calcium [Mass/Vol] 10.0 mg/dL Normal 8.5 - 10.1 [facility] Comment on above: Performed By: #### 2 80856 #### [facility],[address] [place] [address] 83673 Chloride [Moles/Vol] 100 mmol/L Normal 98 - 107 [facility] Comment on above: Performed By: #### 2 23465 #### [facility],[address] [place] [address] 25623 CO2 [Moles/Vol] 23.6 mmol/L Normal 21.0 - 32.0 [facility] Comment on above: Performed By: #### 2 02989 #### [facility],[address] [place] [address] 79154 Creatinine [Mass/Vol] 0.66 mg/dL Normal 0.55 - 1.02 [facility] Comment on above: Performed By: #### 2 85002 #### [facility],[address] [place] [address] 09289 GFR/1.73 sq M.predicted among non-blacks MDRD (S/P/Bld) [Vol rate/Area] mL/min/{1.73_m2} Normal 60 - 999 [facility] Comment on above: Performed By: #### 2 97499 #### [facility],[address] [place] [address] 56512 Result Comment: ACCO RDING TO THE NATIONAL KIDNEY DISEASE EDUCATION PROGRAM(NKDE), A NORMAL eGFR IS A VALUE GREATER THAN OR EQUAL TO 60 ML/MIN/1.73 SQ METERS. CHRONIC KIDNEY DISEASE: <60mL/MIN/1.73 SQ METERS KIDNEY FAILURE: <15mL/MIN/1.73 SQ METERS THIS TEST SHOULD ONLY BE USED FOR PATIENTS 18 YEARS OF AGE AND OLDER. Glucose [Mass/Vol] 114 mg/dL High 74 - 106 [facility] Comment on above: Performed By: #### 2 70928 #### [facility],[address] [place] [address] 26535 Potassium [Moles/Vol] 3.8 mmol/L Normal 3.5 - 5.1 [facility] Comment on above: Performed By: #### 2 02400 #### [facility],[address] [place] [address] 09621 Sodium [Moles/Vol] 138 mmol/L Normal 136 - 145 [facility] Comment on above: Performed By: #### 2 95637 #### [facility],[address] [place] [address] 37334 Urea nitrogen [Mass/Vol] 24 mg/dL High 7 - 18 [facility] Comment on above: Performed By: #### 2 13775 #### [facility],[address] [place] [address] 16659 C-REACTIVE PROTEINon 022 CRP 2.20 mg/dl High 0.00 - 0.90 [facility] Comment on above: Performed By: #### 2 88072 #### [facility],[address] [place] [address] CBC + DIFFon 07-03-2021 Baso # 0.10 x10EE3/UL Normal 0.00 - 0.10 [facility] Comment on above: Performed By: #### 2 78479 #### [facility],[address] [place] [address] 66617 Basophils/100 WBC (Bld) 0.6 % Normal 0.0 - 2.0 [facility] Comment on above: Performed By: #### 2 08718 #### [facility],[address] [place] [address] CBC + DIFF Normal [facility] Comment on above: Result Comment: CBC- COMPLETE BLOOD COUNT Performed By: #### 2 24120 #### [facility],[address] [place] [address] EO # 0.80 x10EE3/UL High 0.00 - 0.50 [facility] Comment on above: Performed By: #### 2 59523 #### [facility],[address] [place] [address] 64944 Eosinophils/100 WBC (Bld) 7.9 % High 0.0 - 7.0 [facility] Comment on above: Performed By: #### 2 44747 #### [facility],[address] [place], [place] [address] Erythrocyte distribution width (RBC) [Ratio] 17.2 % High 12.0 - 15.6 [facility] Comment on above: Performed By: #### 2 88653 #### [facility],[address] [place] [address] Hematocrit (Bld) [Volume fraction] 27.7 % Low 34.0 - 46.0 [facility] Comment on above: Performed By: #### 2 19107 #### [facility],[address] [place] [address] 37629 Hemoglobin (Bld) [Mass/Vol] 9.1 g/dL Low 12.0 - 16.0 [facility] Comment on above: Performed By: #### 2 30028 #### [place] [address] Lymph # 1.80 x10EE3/UL Normal 0.80 - 2.80 [facility] Comment on above: Performed By: #### 2 69952 #### [place] [address] Lymphocytes/100 WBC (Bld) 17.0 % Low 20.0 - 45.0 [facility] Comment on above: Performed By: #### 2 55162 #### [place] [address] MANUAL DIFF N/A Normal [facility] Comment on above: Performed By: #### 2 58418 #### [place] [address] MCH (RBC) [Entitic mass] 30 pg Normal 27 - 33 [facility] Comment on above: Performed By: #### 2 01219 #### [place] [address] MCHC 33 X10 3 Normal 32 - 36 [facility] Comment on above: Performed By: #### 2 43476 #### [place] [address] MCV (RBC) [Entitic vol] 89 fL Normal 80 - 99 [facility] Comment on above: Performed By: #### 2 79450 #### [place] [address] [place] # 0.60 x10EE3/UL Normal 0.20 - 1.00 [facility] Comment on above: Performed By: #### 2 61773 #### [place] [address] MONOS % 5.6 % Normal 0.0 - 10.0 [facility] Comment on above: Performed By: #### 2 77974 #### [facility],[address] [place] [address] Morphology Raheem (Bld) [Interp] N/A Normal [facility] Comment on above: Result Comment: {CD] Performed By: #### 2 45013 #### [facility],[address] [place] [address] Neut # 7.40 x10EE3/UL High 1.50 - 7.10 [facility] Comment on above: Performed By: #### 2 19605 #### [place] [address] Neutrophils/100 WBC (Bld) 68.9 % Normal 46.0 - 76.0 [facility] Comment on above: Performed By: #### 2 65593 #### [place] [address] PLATELET 476 x10EE3/UL High 150 - 450 [facility] Comment on above: Performed By: #### 2 32834 #### [place] [address] Platelet mean volume (Bld) [Entitic vol] 7.5 fL Normal 6.6 - 10.5 [facility] Comment on above: Result Comment: AUTO MATED DIFFERENTIAL Performed By: #### 2 14884 #### [facility],[address] [place], [place] [address] RBC 3.10 x 10EE6/UL Low 4.10 - 5.30 [facility] Comment on above: Performed By: #### 2 52789 #### [place] [address] WBC 10.7 x 10EE3/UL Normal 4.5 - 10.8 [facility] Comment on above: Performed By: #### 2 84404 #### [facility],[address] [place] [address] CPKon 07-03-2021 CPK 62 U/L Normal 26 - 192 [facility] Comment on above: Performed By: #### 2 43664 #### [facility],[address] [place] [address] 48664 HEPATIC FUNCTION PANELon Albumin [Mass/Vol] 2.7 g/dL Low 3.4 - 5.0 [facility] Comment on above: Performed By: #### 2 38071 #### [facility],[address] [place] [address] ALK PHOS 143 U/L High 46 - 116 [facility] Comment on above: Performed By: #### 2 99238 #### [facility],[address] [place], [place] [phone] ALT [Catalytic activity/Vol] 25 U/L Normal 14 - 59 [facility] Comment on above: Performed By: #### 2 78678 #### [facility],[address] [place], [place] [address] AST [Catalytic activity/Vol] 21 U/L Normal 13 - 39 [facility] Comment on above: Performed By: #### 2 65518 #### [facility],[address] [place] [address] 67906 Bilirubin [Mass/Vol] 0.2 mg/dL Normal 0.2 - 1.0 [facility] Comment on above: Performed By: #### 2 40932 #### [facility],[address] [place] [address] 91246 Bilirubin.direct [Mass/Vol] 0.1 mg/dL Normal 0.0 - 0.2 [facility] Comment on above: Performed By: #### 2 35946 #### [facility],[address] [place] [address] 31875 Hepatic function 2000 panel Normal [facility] Comment on above: Result Comment: HEPA TIC FUNCTION PROFILE Performed By: #### 2 94947 #### [facility],[address] [place] [address] 57927 Protein [Mass/Vol] 8.0 g/dL Normal 6.4 - 8.2 [facility] Comment on above: Performed By: #### 2 82588 #### [facility],[address] [place] [address] 38873 SEDRATEon 07-03-2021 SEDRATE 116 mm/hr High 0 - 30 [facility] Comment on above: Performed By: #### 2 66439 #### [facility],[address] [place] [address] 61518 PRE-ALBUMIN [CCL]on 06-25-19 22 Prealbumin [Mass/Vol] 30 mg/dL Normal 17-36 [facility] Comment on above: Result Comment: [facility] [address] [place] [address] Danie Chaudhari III, M.D. [id number] Performed By: #### 2 58851 #### [address] [address] Prealbuminon 06-25-2021 Prealbumin [Mass/Vol] 30 mg/dL Normal 17-36 [facility] Comment on above: Performed By: #### P REALB #### [facility] Routine Lab [address] [place] [id number] BILIRUBIN DIRECTon 2 Bilirubin.direct [Mass/Vol] 0.1 mg/dL Normal 0.0 - 0.2 [facility] Comment on above: Performed By: #### 2 30982 #### [facility],[address] [place] [address] 33135 C-REACTIVE PROTEINon 022 CRP 3.80 mg/dl High 0.00 - 0.90 [facility] Comment on above: Performed By: #### 2 14966 #### [facility],[address] [place] [address] 09358 CBC + DIFFon 06-24-2021 Baso # 0.10 x10EE3/UL Normal 0.00 - 0.10 [facility] Comment on above: Performed By: #### 2 40110 #### [facility],[address] [place] [address] 40284 Basophils/100 WBC (Bld) 1.1 % Normal 0.0 - 2.0 [facility] Comment on above: Performed By: #### 2 35330 #### [facility],[address] [place] [address] CBC + DIFF Normal [facility] Comment on above: Result Comment: CBC- COMPLETE BLOOD COUNT Performed By: #### 2 27715 #### [facility],[address] [place] [address] EO # 0.40 x10EE3/UL Normal 0.00 - 0.50 [facility] Comment on above: Performed By: #### 2 34502 #### [facility],[address] [place] [address] 99569 Eosinophils/100 WBC (Bld) 3.3 % Normal 0.0 - 7.0 [facility] Comment on above: Performed By: #### 2 32420 #### [facility],[address] [place], [place] [phone] Erythrocyte distribution width (RBC) [Ratio] 14.9 % Normal 12.0 - 15.6 [facility] Comment on above: Performed By: #### 2 88793 #### [facility],[address] [place] [address] Hematocrit (Bld) [Volume fraction] 25.4 % Low 34.0 - 46.0 [facility] Comment on above: Performed By: #### 2 30313 #### [facility],[address] [place] [address] 85537 Hemoglobin (Bld) [Mass/Vol] 8.4 g/dL Low 12.0 - 16.0 [facility] Comment on above: Performed By: #### 2 17268 #### [facility],[address] [place] [address] Lymph # 2.90 x10EE3/UL High 0.80 - 2.80 [facility] Comment on above: Performed By: #### 2 14158 #### [facility],[address] [place] [address] Lymphocytes/100 WBC (Bld) 24.6 % Normal 20.0 - 45.0 [facility] Comment on above: Performed By: #### 2 46116 #### [facility],[address] [place] [address] MANUAL DIFF N/A Normal [facility] Comment on above: Performed By: #### 2 32050 #### [facility],[address] [place] [address] MCH (RBC) [Entitic mass] 29 pg Normal 27 - 33 [facility] Comment on above: Performed By: #### 2 40012 #### [facility],[address] [place] [address] MCHC 33 X10 3 Normal 32 - 36 [facility] Comment on above: Performed By: #### 2 68942 #### [facility],[address] [place], [place] [address] MCV (RBC) [Entitic vol] 89 fL Normal 80 - 99 [facility] Comment on above: Performed By: #### 2 00931 #### [facility],[address] [place] [address]16[address] [place] # 0.60 x10EE3/UL Normal 0.20 - 1.00 [facility] Comment on above: Performed By: #### 2 47145 #### [facility],[address] [place] [address] 95803 MONOS % 5.0 % Normal 0.0 - 10.0 [facility] Comment on above: Performed By: #### 2 61222 #### [facility],[address] [place] [address] 22093 Morphology Raheem (Bld) [Interp] N/A Normal [facility] Comment on above: Result Comment: {CD] Performed By: #### 2 99557 #### [facility],[address] [place] [address] 57038 Neut # 7.80 x10EE3/UL High 1.50 - 7.10 [facility] Comment on above: Performed By: #### 2 74359 #### [facility],[address] [place] [address] 49615 Neutrophils/100 WBC (Bld) 66.0 % Normal 46.0 - 76.0 [facility] Comment on above: Performed By: #### 2 94612 #### [facility],[address] [place] [address] 56288 PLATELET 505 x10EE3/UL High 150 - 450 [facility] Comment on above: Performed By: #### 2 18446 #### [facility],[address] [place] [address] 41891 Platelet mean volume (Bld) [Entitic vol] 7.4 fL Normal 6.6 - 10.5 [facility] Comment on above: Result Comment: AUTO MATED DIFFERENTIAL Performed By: #### 2 13444 #### [facility],[address] [place] [address] 28603 RBC 2.87 x 10EE6/UL Low 4.10 - 5.30 [facility] Comment on above: Performed By: #### 2 07413 #### [facility],[address] [place] [address] 93585 WBC 11.7 x 10EE3/UL High 4.5 - 10.8 [facility] Comment on above: Performed By: #### 2 00911 #### [facility],[address] [place] [address] 18502 CMP with eGFRon 06-24-2021 AGE 55 years Normal [facility] Comment on above: Performed By: #### 2 00035 #### [facility],[address] [place] [address] 37836 Albumin [Mass/Vol] 2.5 g/dL Low 3.4 - 5.0 [facility] Comment on above: Performed By: #### 2 72198 #### [facility],[address] [place] [address] 91796 Albumin/Globulin [Mass ratio] 0.5 {ratio} Low 0.9 - 1.6 [facility] Comment on above: Performed By: #### 2 13210 #### [facility],[address] [place] [address] 63195 ALK PHOS 127 U/L High 46 - 116 [facility] Comment on above: Performed By: #### 2 79514 #### [facility],[address] [place] [address] 75657 ALT [Catalytic activity/Vol] 22 U/L Normal 14 - 59 [facility] Comment on above: Performed By: #### 2 04098 #### [facility],[address] [place] [address] 28311 Anion gap [Moles/Vol] 17 mmol/L Normal 10 - 20 [facility] Comment on above: Performed By: #### 2 35517 #### [facility],[address] [place] [address] 89613 AST [Catalytic activity/Vol] 26 U/L Normal 13 - 39 [facility] Comment on above: Performed By: #### 2 06256 #### [facility],[address] [place] [address] 15390 B/C RATIO 23 ratio Normal 0 - 30 [facility] Comment on above: Performed By: #### 2 26819 #### [facility],[address] [place] [address] 34861 Bilirubin [Mass/Vol] 0.2 mg/dL Normal 0.2 - 1.0 [facility] Comment on above: Performed By: #### 2 63336 #### [facility],[address] [place] [address] 54724 Calcium [Mass/Vol] 10.6 mg/dL High 8.5 - 10.1 [facility] Comment on above: Performed By: #### 2 81366 #### [facility],[address] [place] [address] 11445 Chloride [Moles/Vol] 102 mmol/L Normal 98 - 107 [facility] Comment on above: Performed By: #### 2 09774 #### [facility],[address] [place] [address] 65728 CMP with eGFR Normal [facility] Comment on above: Result Comment: COMP REHENSIVE METABOLIC PANEL Performed By: #### 2 65009 #### [facility],[address] [place] [address] 45287 CO2 [Moles/Vol] 25.1 mmol/L Normal 21.0 - 32.0 [facility] Comment on above: Performed By: #### 2 20771 #### [facility],[address] [place], [place] [address] Creatinine [Mass/Vol] 0.86 mg/dL Normal 0.55 - 1.02 [facility] Comment on above: Performed By: #### 2 60679 #### [facility],[address] [place] [address] 80243 GFR/1.73 sq M.predicted among non-blacks MDRD (S/P/Bld) [Vol rate/Area] mL/min/{1.73_m2} Normal 60 - 999 [facility] Comment on above: Performed By: #### 2 93600 #### [facility],[address] [place] [address] 50134 Result Comment: ACCO RDING TO THE NATIONAL KIDNEY DISEASE EDUCATION PROGRAM(NKDE), A NORMAL eGFR IS A VALUE GREATER THAN OR EQUAL TO 60 ML/MIN/1.73 SQ METERS. CHRONIC KIDNEY DISEASE: <60mL/MIN/1.73 SQ METERS KIDNEY FAILURE: <15mL/MIN/1.73 SQ METERS THIS TEST SHOULD ONLY BE USED FOR PATIENTS 18 YEARS OF AGE AND OLDER. Globulin (S) [Mass/Vol] 5.5 g/dL High 1.5 - 3.8 [facility] Comment on above: Performed By: #### 2 59679 #### [facility],[address] [place] [address] 30840 Glucose [Mass/Vol] 90 mg/dL Normal 74 - 106 [facility] Comment on above: Performed By: #### 2 29171 #### [facility],[address] [place] [address] 55935 Potassium [Moles/Vol] 4.3 mmol/L Normal 3.5 - 5.1 [facility] Comment on above: Performed By: #### 2 72098 #### [facility],[address] [place] [address] 47120 Protein [Mass/Vol] 8.0 g/dL Normal 6.4 - 8.2 [facility] Comment on above: Performed By: #### 2 57734 #### [facility],[address] [place] [address] 64533 Sodium [Moles/Vol] 140 mmol/L Normal 136 - 145 [facility] Comment on above: Performed By: #### 2 67259 #### [facility],[address] [place] [address] 73607 Urea nitrogen [Mass/Vol] 20 mg/dL High 7 - 18 [facility] Comment on above: Performed By: #### 2 37106 #### [facility],[address] [place] [address] 09278 CPKon 06-24-2021 CPK 324 U/L High 26 - 192 [facility] Comment on above: Performed By: #### 2 44168 #### [facility],[address] [place] [address] 15351 T4-FREE (FREE THYROXINE)on 0 06-24-2021 Free T4 [Mass/Vol] 0.39 ng/dL Low 0.76 - 1.46 [facility] Comment on above: Result Comment: P otential of falsely elevated results when biotin concentrations are > 10 ng/mL. Performed By: #### 2 96567 #### [facility],[address] [place] [address] TSHon 06-24-2021 TSH Qn 0.11 m[IU]/L Low 0.35 - 3.74 [facility] Comment on above: Performed By: #### 2 65713 #### [facility],[address] [place] [address] DISCH.SUMon 01-08-2021 DISCH.[facility] [address] [place] [address] Unit Number: [id number] Discharge Summary Patient Status: [facility] Attending Doctor: Jason Blanchard DO Service Date: [...] Providers: Jason Blanchard DO [id number] [place] [address] Follow up 12/19/20 at 1pm with Nora. Condition: Stable Disposition Home w/ Home Health Care Disclaimer This dictation was created using voice recognition (more content not included)... Normal [facility] BLOOD CULTUREon 01-04-2021 Bacteria identified Cx Nom (Bld) NO GROWTH AFTER 5 DAYS [facility] Comment on above: Order Comment: Jesusita s: M Performed By: #### L [id number] #### [facility] [address] [place], [place] [id number] Bacteria identified Cx Nom (Bld) NO GROWTH AFTER 5 DAYS [facility] Comment on above: Order Comment: Jesusita s: M Performed By: #### L [id number] #### [facility] [address] [place] [address] 58558 URINE CULTUREon 01-01-2021 Bacteria identified Cx Nom (U) NO GROWTH AFTER 48 HOURS [facility] Comment on above: Performed By: #### L [id number] #### [facility] [address] [place] [address] BMPon 12-30-2020 Anion gap [Moles/Vol] 10 mmol/L Normal 5-16 [facility] Comment on above: Order Comment: Campu s: M Performed By: #### L 500.21100, L500.89056, L500.96727 ####[facility] [id number] [place], [place] [address]Ah# [phone] Calcium [Mass/Vol] 9.6 mg/dL Normal 8.5-10.5 [facility] Comment on above: Order Comment: Campu s: M Result Comment: NOTE NEW NORMAL RANGE DUE TO REAGENT CHANGE Performed By: #### L 500.53480, L500.32767, L500.01554 ####[facility] [id number] [place], [place] [address]Es# [phone] Chloride [Moles/Vol] 102 mmol/L Normal 98-107 [facility] Comment on above: Order Comment: Campu s: M Performed By: #### L 500.60032, L500.76848, L500.80654 ####[facility] [id number] [place], [place] [address]Vh# [phone] CO2 [Moles/Vol] 22.0 mmol/L Normal 21-32 [facility] Comment on above: Order Comment: Campu s: M Performed By: #### L 500.05171, L500.36458, L500.99079 ####[facility] [id number] [place], [place] [address]Rq# [phone] Creatinine [Mass/Vol] 0.44 mg/dL Low 0.510-0.95 0 [facility] Comment on above: Order Comment: Campu s: M Result Comment: Palak ents receiving either N-Acetylcysteine (NAC) or Metamizole prior to venipuncture, may have falsely depressed results. Performed By: #### L 500.73416, L500.99531, L500.85342 ####[facility] [id number] [place], [place] [address]Bc# [phone] Glucose [Mass/Vol] 273 mg/dL High 70-100 [facility] Comment on above: Order Comment: Campu s: M Result Comment: 70-1 00- Normal Fasting; 100-125 Impaired Fasting; greater than 126 on more than one result- Diabetes. ADA guidelines. Results may be falsely elevated after the administration of Sulfapyridine. Results may be falsely depressed after the administration of Sulfasalazine. Performed By: #### L 500.85530, L500.59175, L500.10555 ####[facility] [id number] [place], [place] [address]Tl# [phone] Potassium [Moles/Vol] 3.6 mmol/L Normal 3.5-5.1 [facility] Comment on above: Order Comment: Campu s: M Performed By: #### L 500.88035, L500.08846, L500.28198 ####[facility] [id number] [place], [place] [address]Ur# [phone] Sodium [Moles/Vol] 134 mmol/L Low 136-145 [facility] Comment on above: Order Comment: Campu s: M Performed By: #### L 500.23851, L500.49937, L500.41279 ####[facility] [id number] [place], [place] [address]Bx# [phone] Urea nitrogen [Mass/Vol] 25 mg/dL Normal 7-26 [facility] Comment on above: Order Comment: Campu s: M Performed By: #### L 500.28252, L500.15525, L500.29684 ####[facility] [id number] [place], [place] [address]Hx# [phone] Urea nitrogen/Creatinin e [Mass ratio] 57 mg/mg High 15-24 [facility] Comment on above: Order Comment: Campu s: M Performed By: #### L 500.64156, L500.05509, L500.90407 ####[facility] [id number] [place], [place] [address]Ew# [phone] CBC W/DIFFon 12-30-2020 BASO ABS 0.10 K/CU MM Normal 0-0.2 [facility] Comment on above: Order Comment: Campu s: M Performed By: #### L 200.58821 ####[place] [address]Ph# [phone] Basophils/100 WBC (Bld) 0.7 % Normal 0-2 [facility] Comment on above: Order Comment: Campu s: M Performed By: #### L 200.03542 ####[address] [address]Zn# [phone] EOS ABS 0.20 K/CU MM Normal 0-0.5 [facility] Comment on above: Order Comment: Campu s: M Performed By: #### L 200.40727 ####[address] [address]Rv# [phone] Eosinophils/100 WBC (Bld) 2.4 % Normal 0-5 [facility] Comment on above: Order Comment: Campu s: M Performed By: #### L 200.78932 ####[address] [address]Yd# [phone] Erythrocyte distribution width (RBC) [Ratio] 12.2 % Normal 11-14.5 [facility] Comment on above: Order Comment: Campu s: M Performed By: #### L 200.26741 ####[facility] [id number] [place] [address]Tz# [phone] Hematocrit (Bld) [Volume fraction] 41.4 % Normal 35.0-47.0 [facility] Comment on above: Order Comment: Campu s: M Performed By: #### L 200.29935 ####[facility] [id number] [place], [place] [address]Ph# [phone] Hemoglobin (Bld) [Mass/Vol] 14.1 g/dL Normal 11.5-15.5 [facility] Comment on above: Order Comment: Campu s: M Performed By: #### L 200.01244 ####[facility] [id number] [place] [address]An# [phone] IMMATR GRAN ABS 0.10 K/CU MM Normal Less than 2 [facility] Comment on above: Order Comment: Campu s: M Performed By: #### L 200.10347 ####[place] [address]Ph# [phone] IMMATURE GRAN % 0.8 % Normal Less than 2 [facility] Comment on above: Order Comment: Campu s: M Performed By: #### L 200.21805 ####[place] [address]Ph# [phone] LYMPH ABS 2.00 K/CU MM Normal 0.9-4.4 [facility] Comment on above: Order Comment: Campu s: M Performed By: #### L 200.80121 ####[place] [address]Ph# [phone] Lymphocytes/100 WBC (Bld) 26.3 % Normal 20-40 [facility] Comment on above: Order Comment: Campu s: M Performed By: #### L 200.29208 ####[facility] [id number] [place], [place] [address]Ph# [phone] MCHC (RBC) [Mass/Vol] 34.1 g/dL Normal 32.0-36.0 [facility] Comment on above: Order Comment: Campu s: M Performed By: #### L 200.40081 ####[facility] [id number] [place], [place] [address]Ph# [phone] MCV (RBC) [Entitic vol] 90.6 fL Normal 80.0-99.0 [facility] Comment on above: Order Comment: Campu s: M Performed By: #### L 200.66192 ####[facility] [id number] [place], [place] [address]Xx# [phone] MONO ABS 1.00 K/CU MM Normal 0.1-1.1 [facility] Comment on above: Order Comment: Campu s: M Performed By: #### L 200.70299 ####[facility] [id number] [place], [place] [address]Ph# [phone] Monocytes/100 WBC (Bld) 12.4 % High 2-10 [facility] Comment on above: Order Comment: Campu s: M Performed By: #### L 200.30673 ####[place] [address]Ph# [phone] NEUTROPHIL ABS 4.40 K/CU MM Normal 2.0-8.3 [facility] Comment on above: Order Comment: Campu s: M Performed By: #### L 200.04554 ####[facility] [id number] [place] [address]Kk# [phone] Neutrophils/100 WBC (Bld) 57.4 % Normal 45-75 [facility] Comment on above: Order Comment: Campu s: M Performed By: #### L 200.10378 ####[facility] [id number] [place] [address]Ru# [phone] Nucleated RBC/100 WBC (Bld) [Ratio] 0.0 % Normal Less than 1 [facility] Comment on above: Order Comment: Campu s: M Performed By: #### L 200.14082 ####[facility] [id number] [place] [address]Gs# [phone] Platelet mean volume (Bld) [Entitic vol] 9.9 fL Normal 9.4-12.4 [facility] Comment on above: Order Comment: Campu s: M Performed By: #### L 200.92176 ####[facility] [id number] [place], [place] [address]Ph# [phone] PLT 226 K/CU MM Normal 150-450 [facility] Comment on above: Order Comment: Campu s: M Performed By: #### L 200.03564 ####[facility] [id number] [place], [place] [address]Ae# [phone] RBC 4.57 M/CU MM Normal 3.90-5.30 [facility] Comment on above: Order Comment: Campu s: M Performed By: #### L 200.00965 ####[facility] [id number] [place], [place] [address]Je# [phone] WBC 7.6 K/CUMM Normal 4.5-11.0 [facility] Comment on above: Order Comment: Campu s: M Performed By: #### L 200.05248 ####[facility] [id number] [place], [place] [address]Sw# [phone] CT [facility]BD/PEL W IV CONTRAST [...] MERCADO MD Signed By: GRISELDA MERCADO MD [facility] EKGon 12-30-2020 Electrocardiogram Procedure Date and T [...] VU M.D.FACC ____ Danae DDandT: 12/30/201723 TDandT: [facility] PATIENT NAME: PHYLICIA FALK [facility] [address]mid MEDICAL REC #: [id number] [place] [address] ADMIT DATE: DISCHARGE DATE: ATTENDING PHY: Beatriz Arreola,Emergency Physi ELECTROCARDIOGRAM REPORT CLB cc: [facility] PATIENT NAME: PHYLICIA FALK [facility] [address] MEDICAL REC #: [id number] [place] [address] ADMIT DATE: DISCHARGE DATE: ATTENDING PHY: Beatriz Arreola,Emergency Physi ELECTROCARDIOGRAM REPORT [facility] Yessi 12-30-2020 EMERGENCY PHYSICIAN REPORT This is a preliminary report only, as the practitioner review and authentication has not occurred. [facility] ER PHYSICIAN ASSESSMENT RECORDS : Discharge Report Event Time: 12/30/2020 21:19 : FlexChartData Event Time: 12/30/2020 21:50 Status: Signed [facility] Phylicia Falk [[id number]] Attending Physician 55 / F / 1965 Chart (V2b) Chart created at 12/30/2020 21:14 by Raffaele Reyes Chart closed at 12/30/2020 21:18 Entry in Emergency Department at 12/30/2020 12:45, departure at 12/30/2020 21:43 Patient Name: Phylicia Falk Record Number: [id number] Date: 12/30/2020 21:14 Entered Department at: 12/30/2020 [...] IV antibiotics. She states that for the [facility] PATIENT NAME: PHYLICIA FALK L [address] [facility] [address] MEDICAL REC #: [id number] [place] [address] EMERGENCY DEPARTMENT REPORT EMERGENCY DEPARTMENT PHYSICIAN last [...] and Dry Psychological: Mood/Affect Normal and Normal [facility] PATIENT NAME: PHYLICIA FALK [address] [facility] [address]mid MEDICAL REC #: [id number] [place] [address] EMERGENCY DEPARTMENT REPORT EMERGENCY DEPARTMENT PHYSICIAN Memory/Judgment [...] Discharged *Home. (more content not included)... Normal [facility] G[facility] ESTon 12-30-2020 IF AMER Greater than 60 Normal [facility] Comment on above: Order Comment: Campu s: M Performed By: #### L 500.65767, L500.14126, L500.25873 ####[facility] [id number] [place], [place] [address]Kd# [phone] IF non-AFR AMER Greater than 60 Normal [facility] Comment on above: Order Comment: Campu s: M Performed By: #### L 500.57526, L500.89476, L500.02374 ####[facility] [id number] [place], [place] [address]Od# [phone] LACTATE BLOODon 12-30-2020 LACTATE BLOOD 1.55 MMOL/L Normal 0.40-2.00 [facility] Comment on above: Order Comment: Campu s: M Performed By: #### L 550.02779 #### [facility] [address] [place] [address] LIVERon 12-30-2020 Albumin [Mass/Vol] 3.5 g/dL Normal 3.2-5.0 [facility] Comment on above: Order Comment: Campu s: M Performed By: #### L 550.41784 #### [facility] [address] [place] [id number] Albumin/Globulin [Mass ratio] 1.0 {ratio} Normal 0.8-2.0 [facility] Comment on above: Order Comment: Campu s: M Performed By: #### L 550.40189 #### [facility] [address] [place] [address] ALK PHOS 103 U/L Normal 45-117 [facility] Comment on above: Order Comment: Campu s: M Performed By: #### L 550.98259 #### [facility] [address] [place] [address] ALT [Catalytic activity/Vol] 31 U/L Normal 13-61 [facility] Comment on above: Order Comment: Campu s: M Result Comment: RESU LTS MAY BE FALSELY DEPRESSED AFTER THE ADMINISTRATION OF SULFASALAZINE AND/OR SULFAPYRIDINE. Performed By: #### L 550.76273 #### [facility] [address] [place] [address] AST [Catalytic activity/Vol] 16 U/L Normal 8-34 [facility] Comment on above: Order Comment: Campu s: M Result Comment: RESU LTS MAY BE FALSELY DEPRESSED AFTER THE ADMINISTRATION OF SULFASALAZINE AND/OR SULFAPYRIDINE. Performed By: #### L 550.20396 #### [facility] [address] [place], [place] [address] BILI DIRECT 0.3 MG/DL Normal 0.00-0.36 [facility] Comment on above: Order Comment: Campu s: M Result Comment: NOTE NEW NORMAL RANGE DUE TO REAGENT CHANGE Performed By: #### L 550.36634 #### [facility] [address] [place] [address] BILI TOTAL 0.90 MG/DL Normal 0.2-1.0 [facility] Comment on above: Order Comment: Ruiu s: M Performed By: #### L 550.35699 #### [facility] [address] [place], [place] [address] Globulin (S) [Mass/Vol] 3.6 g/dL Normal 2.2-4.2 [facility] Comment on above: Order Comment: Campu s: M Performed By: #### L 550.97958 #### [facility] [address] [place] [address] Protein [Mass/Vol] 7.1 g/dL Normal 6.0-8.5 [facility] Comment on above: Order Comment: Campu s: M Performed By: #### L 550.74067 #### [facility] [address] [place], [place] [address] PTon 12-30-2020 INR Coag (PPP) [Relative time] 1.02 {INR} Normal 0.9-1.1 [facility] Comment on above: Order Comment: Ruiu s: M Result Comment: Jan mmended PT INR therapeutic range for manager terminal and prophylactic therapy is 2.0 - 3.0. For heart valve and shunt patients the range is 2.5 - 3.5. Performed By: #### L 300.80369, L300.06923 #### [facility] [address] [place] [address] PTS 10.9 SECONDS Normal 9.5-12.0 [facility] Comment on above: Order Comment: Ruiu s: M Performed By: #### L 300.93421, L300.26692 #### [facility] [address] [place] [address] PTTon 12-30-2020 aPTT Coag (Bld) [Time] 51.1 s High 22.0-31.5 [facility] Comment on above: Order Comment: Jesusita [...] using the PTT. Performed By: #### L 300.36314, L300.08563 #### [facility] [address] [place] [address] [id number] 12-30-2020 SARS-CoV-2 (COVID-19) RNA LAUREN+probe Ql (Unsp spec) Negative Invalid Interpretation Code Negative [facility] Comment on above: Order Comment: Jesusita [...] performed by PCR. Performed By: #### L 200.88606 #### [facility] [address] [place] [address] TROPONIN Ion 12-30-2020 Troponin I.cardiac [Mass/Vol] 2.5 ng/mL Normal 0-34 [facility] Comment on above: Order Comment: Jesusita s: M Result Comment: NOTE NEW NORMAL RANGE DUE TO REAGENT CHANGE This assay uses different antibodies than our current assay, and assays, even by the same stake setter may recognize different regions of the antibody and cannot be used interchangeably. Expect results of this assay to run higher than the previous assay. Performed By: #### L 550.67548 #### [facility] [address] [place] [address] UA COMPLETEon 12-30-2020 UA LK ESTERASE 75 Normal NEGATIVE [facility] Comment on above: Order Comment: Campu s: M Performed By: #### L 550.73607 #### [facility] [address] [place] [address] UA WBC 19 WBC/HPF High 0-5 [facility] Comment on above: Order Comment: Campu s: M Performed By: #### L 550.86023 #### [facility] [address] [place] [address] Color (U) Kyara Normal [facility] Comment on above: Order Comment: Campu s: M Performed By: #### L 550.41797 #### [facility] [address] [place] [address] Glucose (U) [Mass/Vol] 500 mg/dL Normal NORMAL [facility] Comment on above: Order Comment: Campu s: M Performed By: #### L 550.66512 #### [facility] [place] [address] Mucus Ql (Urine sed) 2+ Normal NEGATIVE [facility] Comment on above: Order Comment: Campu s: M Performed By: #### L 550.71564 #### [facility] [place] [address] SQUAMOUS EPIS 5 EPI/HPF Normal 0-5 [facility] Comment on above: Order Comment: Campu s: M Performed By: #### L 550.25213 #### [facility] [address] [place] [address] UA APPEARANCE Hazy Normal CLEAR [facility] Comment on above: Order Comment: Campu s: M Performed By: #### L 550.16086 #### [facility] [address] [place] [address] UA BACTERIA TRACE Normal NONE [facility] Comment on above: Order Comment: Campu s: M Performed By: #### L 550.67101 #### [facility] [address] [place] [address] UA BILIRUBIN Negative Normal NEGATIVE [facility] Comment on above: Order Comment: Campu s: M Performed By: #### L 550.46281 #### [facility] [address] [place] [address] UA BLOOD Negative Normal NEGATIVE [facility] Comment on above: Order Comment: Campu s: M Performed By: #### L 550.81788 #### [facility] [address] [place], [place] [address] UA KETONE 80 Normal NEGATIVE [facility] Comment on above: Order Comment: Campu s: M Performed By: #### L 550.87888 #### [facility] [address] [place], [place] [address] UA NITRITE Negative Normal NEGATIVE [facility] Comment on above: Order Comment: Campu s: M Performed By: #### L 550.21430 #### [facility] [address] [place] [address] UA PH 5.0 Normal 5-6 [facility] Comment on above: Order Comment: Campu s: M Performed By: #### L 550.56705 #### [facility] [address] [place] [address] UA PROTEIN 30 Normal NEGATIVE [facility] Comment on above: Order Comment: Campu s: M Performed By: #### L 550.31259 #### [facility] [address] [place] [address] UA RBC 5 RBC/HPF High 0-3 [facility] Comment on above: Order Comment: Campu s: M Performed By: #### L 550.12832 #### [facility] [address] [place] [address] UA SPEC GRAV 1.036 Normal 1.005-1.03 0 [facility] Comment on above: Order Comment: Campu s: M Performed By: #### L 550.16301 #### [facility] [address] [place] [address] UA UROBILINOGEN Negative Normal NORMAL [facility] Comment on above: Order Comment: Campu s: M Performed By: #### L 550.12983 #### [facility] [address] [place] [address] GLUCOSE METERon 12-09-2020 Glucose [Mass/Vol] 259 mg/dL High 85-125 [facility] ANAER CULTUREon 12-07-2020 ANAER CULTURE RESULT NO GROWTH OF ANAEROBES Normal [facility] Comment on above: Order Comment: Campu s: M Performed By: #### L 550.76708 #### [facility] [address] [place] [address] CBCon 12-06-2020 Erythrocyte distribution width (RBC) [Ratio] 11.9 % Normal 11-14.5 [facility] Comment on above: Order Comment: Campu s: M Performed By: #### L 200.56710 #### [facility] [address] [place] [address] Hematocrit (Bld) [Volume fraction] 39.2 % Normal 35.0-47.0 [facility] Comment on above: Order Comment: Campu s: M Performed By: #### L 200.90201 #### [facility] [address] [place] [address] Hemoglobin (Bld) [Mass/Vol] 12.9 g/dL Normal 11.5-15.5 [facility] Comment on above: Order Comment: Campu s: M Performed By: #### L 200.67695 #### [facility] [address] [place], [place] [address] MCHC (RBC) [Mass/Vol] 32.9 g/dL Normal 32.0-36.0 [facility] Comment on above: Order Comment: Campu s: M Performed By: #### L 200.29260 #### [facility] [address] [place], [place] [address] MCV (RBC) [Entitic vol] 94.2 fL Normal 80.0-99.0 [facility] Comment on above: Order Comment: Campu s: M Performed By: #### L 200.00186 #### [facility] [address] [place] [address] Nucleated RBC/100 WBC (Bld) [Ratio] 0.0 % Normal Less than 1 [facility] Comment on above: Order Comment: Campu s: M Performed By: #### L 200.78792 #### [facility] [address] [place] [address] Platelet mean volume (Bld) [Entitic vol] 9.8 fL Normal 9.4-12.4 [facility] Comment on above: Order Comment: Campu s: M Performed By: #### L 200.98429 #### [facility] [address] [place], [place] [address] PLT 222 K/CU MM Normal 150-450 [facility] Comment on above: Order Comment: Campu s: M Performed By: #### L 200.56212 #### [facility] [address] [place], [place] [address] RBC 4.16 M/CU MM Normal 3.90-5.30 [facility] Comment on above: Order Comment: Campu s: M Performed By: #### L 200.08293 #### [facility] [address] [place], [place] [address] WBC 8.3 K/CUMM Normal 4.5-11.0 [facility] Comment on above: Order Comment: Campu s: M Performed By: #### L 200.27804 #### [facility] [address] [employer]# [phone] GLUCOSE METERon 12-06-2020 Glucose [Mass/Vol] 290 mg/dL High 85-125 [facility] Glucose [Mass/Vol] 255 mg/dL High 85-125 [facility] Glucose [Mass/Vol] 258 mg/dL High 85-125 [facility] PROG.NOTEon 12-06-2020 PROG.NOTE [facility] Patient Name: PHYLICIA FALK [address] [facility] [address] Date of : [address] [place] [address] Unit Number: [id number] Progress Note-Physician Patient Status: REG SDC Attending [...] 12/05 12/05 12/05 12/04 12/04 0614 0614 [id number] Chemistry Sodium (136 - 145 [...] Time Addison Paez Verified/Reviewed by 12/06/20 0952 [facility] Progress Note-Physician [facility] PROG.ORTHOon 07-16-2021 PROG.[facility] Patient Name: PHYLICIA FALK [address] Date of : [address] [place] [address] Unit Number: [id number] Progress Note-Ortho Patient Status: REG SDC Attending [...] pulses 2+. Diagnostic Data Lab 24hr (CBC/BMP [facility]) 12/05/20 2153: Whole Bld Glucose 258 H [...] Verified/Reviewed by 12/06/20 0557 Jason Blanchard DO [facility] Progress Note-Ortho Normal [facility] SURG TISSUEon 12-06-2020 SURG TISSUE GRAM STAIN NO WBC'S SEEN NO ORGANISMS SEEN ORGANISM 1: STREPTOCOCCUS AGALACTIAE GRP.B QUANTITATION FEW STREPTOCOCCUS AGALACTIAE GRP.B: REACTION AMPICILLIN 0.12 S CEFEPIME <0.25 S CHLORAMPHENICOL 4 S CLINDAMYCIN >0.5 R PENICILLIN 0.06 S TETRACYCLINE >4 R LEVOFLOXACIN 0.5 S Normal [facility] Comment on above: Order Comment: Jesusita s: M Performed By: #### L 200.11685 #### [facility] [address] [place] [address] BMPon 12-05-2020 Anion gap [Moles/Vol] 7 mmol/L Normal - [facility] Comment on above: Order Comment: Jesusita s: M Performed By: #### L [id number] #### [facility] [address] [place] [address] Calcium [Mass/Vol] 8.8 mg/dL Normal 8.5-10.5 [facility] Comment on above: Order Comment: Campu s: M Result Comment: NOTE NEW NORMAL RANGE DUE TO REAGENT CHANGE Performed By: #### L [id number] #### [facility] [address] [place] [address] Chloride [Moles/Vol] 105 mmol/L Normal 98-107 [facility] Comment on above: Order Comment: Campu s: M Performed By: #### L 550.86016 #### [facility] [address] [place] [address] CO2 [Moles/Vol] 26.0 mmol/L Normal 21-32 [facility] Comment on above: Order Comment: Campu s: M Performed By: #### L 550.30783 #### [facility] [address] [place] [address] Creatinine [Mass/Vol] 0.45 mg/dL Low 0.510-0.95 0 [facility] Comment on above: Order Comment: Campu s: M Result Comment: Palak ents receiving either N-Acetylcysteine (NAC) or Metamizole prior to venipuncture, may have falsely depressed results. Performed By: #### L 550.86126 #### [facility] [address] [place] [address] Glucose [Mass/Vol] 244 mg/dL High 70-100 [facility] Comment on above: Order Comment: Campu s: M Result Comment: 70-1 00- Normal Fasting; 100-125 Impaired Fasting; greater than 126 on more than one result- Diabetes. ADA guidelines. Results may be falsely elevated after the administration of Sulfapyridine. Results may be falsely depressed after the administration of Sulfasalazine. Performed By: #### L 550.14653 #### [facility] [address] [place], [place] [id number] Potassium [Moles/Vol] 3.9 mmol/L Normal 3.5-5.1 [facility] Comment on above: Order Comment: Campu s: M Performed By: #### L 550.94623 #### [facility] [address] [place] [address] Sodium [Moles/Vol] 138 mmol/L Normal 136-145 [facility] Comment on above: Order Comment: Campu s: M Performed By: #### L 550.93807 #### [facility] [address] [place] [address] Urea nitrogen [Mass/Vol] 21 mg/dL Normal 7-26 [facility] Comment on above: Order Comment: Campu s: M Performed By: #### L 550.46654 #### [facility] [address] [place] [address] Urea nitrogen/Creatinin e [Mass ratio] 47 mg/mg High 15-24 [facility] Comment on above: Order Comment: Campu s: M Performed By: #### L 550.62785 #### [facility] [address] [place] [address] CBCon 12-05-2020 Erythrocyte distribution width (RBC) [Ratio] 12.1 % Normal 11-14.5 [facility] Comment on above: Order Comment: Campu s: M Performed By: #### L 200.83141 #### [facility] [address] [place] [address] Hematocrit (Bld) [Volume fraction] 38.1 % Normal 35.0-47.0 [facility] Comment on above: Order Comment: Campu s: M Performed By: #### L 200.28870 #### [facility] [address] [place] [address] Hemoglobin (Bld) [Mass/Vol] 12.6 g/dL Normal 11.5-15.5 [facility] Comment on above: Order Comment: Campu s: M Performed By: #### L 200.71924 #### [facility] [address] [place] [address] MCHC (RBC) [Mass/Vol] 33.1 g/dL Normal 32.0-36.0 [facility] Comment on above: Order Comment: Campu s: M Performed By: #### L 200.95124 #### [facility] [address] [place] [address] MCV (RBC) [Entitic vol] 93.6 fL Normal 80.0-99.0 [facility] Comment on above: Order Comment: Campu s: M Performed By: #### L 200.70935 #### [facility] [address] [place] [address] Nucleated RBC/100 WBC (Bld) [Ratio] 0.0 % Normal Less than 1 [facility] Comment on above: Order Comment: Campu s: M Performed By: #### L 200.79884 #### [facility] [address] [place] [address] Platelet mean volume (Bld) [Entitic vol] 9.7 fL Normal 9.4-12.4 [facility] Comment on above: Order Comment: Campu s: M Performed By: #### L 200.40994 #### [facility] [address] [place] [address] PLT 219 K/CU MM Normal 150-450 [facility] Comment on above: Order Comment: Campu s: M Performed By: #### L 200.21179 #### [facility] [address] [place] [address] RBC 4.07 M/CU MM Normal 3.90-5.30 [facility] Comment on above: Order Comment: Campu s: M Performed By: #### L 200.19158 #### [facility] [address] [place] [address] WBC 7.8 K/CUMM Normal 4.5-11.0 [facility] Comment on above: Order Comment: Ruiu s: M Performed By: #### L 200.47030 #### [facility] [address] [place] [address] Gabriel 12-05-2020 FERR 227.0 NG/ML Normal 8.0-307.0 [facility] Comment on above: Order Comment: Campu s: M Performed By: #### L 550.56624 #### [facility] [address] [place] [address] GFR ESTon 12-05-2020 IF AMER Greater than 60 Normal [facility] Comment on above: Order Comment: Campu s: M Performed By: #### L 550.47470 #### [facility] [address] [place] [address] IF non-AFR AMER Greater than 60 Normal [facility] Comment on above: Order Comment: Campu s: M Performed By: #### L 550.67919 #### [facility] [address] [place] [address] GLUCOSE METERon 12-05-2020 Glucose [Mass/Vol] 237 mg/dL High 85-125 [facility] Glucose [Mass/Vol] 260 mg/dL High 85-125 [facility] Glucose [Mass/Vol] 225 mg/dL High 85-125 [facility] Glucose [Mass/Vol] 274 mg/dL High 85-125 [facility] HGB A1C GLYCOHBon 12-05-2020 HbA1c (Bld) [Mass fraction] 12.2 % High 4.3-6.0 [facility] Comment on above: Order Comment: Campu s: M Performed By: #### L 200.41338 #### [facility] [address] [place] [address] IRON PANELon 12-05-2020 Iron [Mass/Vol] 88 ug/dL Normal 50-170 [facility] Comment on above: Order Comment: Jesusita s: M Result Comment: Palak ents treated with metal-binding drugs (e.g.deferoxamine) may have depressed iron values, as chelated iron may not properly react in the Siemens iron assay. Performed By: #### L 550.18426 #### [facility] [address] [place] [address] IRON SAT 25 % Normal 22-44 [facility] Comment on above: Order Comment: Jesusita s: M Performed By: #### L 550.79961 #### [facility] [address] [place] [address] 27875 TIBC 351 UG/DL Normal 221-481 [facility] Comment on above: Order Comment: Jesusita s: M Performed By: #### L 550.11572 #### [facility] [address] [place] [address] PROG.NOTEon 12-05-2020 PROG.NOTE [facility] Patient Name: PHYLICIA FALK [address] [place] [address] Date of : [address] [place] [address] Unit Number: [id number] Progress Note-Physician Patient Status: REG [place] Attending Doctor: Jason Blanchard DO Service Date: [...] 12/05 12/05 12/05 12/04 12/04 0614 0614 0530 0721 0453 Chemistry Sodium (136 - 145 MMOL/L) 138 [...] Time Addison Paez Verified/Reviewed by 12/05/20 0931 [facility] Progress Note-Physician [facility] PROG.ORTHOon 12-05-2020 PROG.ORTHO [facility] Patient Name: PHYLICIA FALK [address] [employer] Date of : [address] [place] [address] Unit Number: [id number] Progress Note-Ortho Patient Status: REG [place] Attending Doctor: Jason Blanchard DO Service Date: [...] Verified/Reviewed by 12/05/2039 Jason Blanchard DO Normal [facility] Progress Note-Ortho Normal [facility] BMP 12-04-2020 Anion gap [Moles/Vol] 7 mmol/L Normal 5-16 [facility] Comment on above: Order Comment: Campu s: M Performed By: #### L 500.10642, L500.93415 #### [facility] [address] [place] [address] Calcium [Mass/Vol] 9.5 mg/dL Normal 8.5-10.5 [facility] Comment on above: Order Comment: Campu s: M Result Comment: NOTE NEW NORMAL RANGE DUE TO REAGENT CHANGE Performed By: #### L 500.47182, L500.62687 #### [facility] [address] [place] [address] Chloride [Moles/Vol] 105 mmol/L Normal 98-107 [facility] Comment on above: Order Comment: Campu s: M Performed By: #### L 500.00890, L500.97309 #### [facility] [place] [address] CO2 [Moles/Vol] 24.0 mmol/L Normal 21-32 [facility] Comment on above: Order Comment: Campu s: M Performed By: #### L 500.39693, L500.67919 #### [facility] [place] [address] Creatinine [Mass/Vol] 0.56 mg/dL Normal 0.510-0.95 0 [facility] Comment on above: Order Comment: Campu s: M Result Comment: Palak ents receiving either N-Acetylcysteine (NAC) or Metamizole prior to venipuncture, may have falsely depressed results. Performed By: #### L 500.16853, L500.35156 #### [facility] [address] [place] [address] Glucose [Mass/Vol] 293 mg/dL High 70-100 [facility] Comment on above: Order Comment: Campu s: M Result Comment: 70-1 00- Normal Fasting; 100-125 Impaired Fasting; greater than 126 on more than one result- Diabetes. ADA guidelines. Results may be falsely elevated after the administration of Sulfapyridine. Results may be falsely depressed after the administration of Sulfasalazine. Performed By: #### L 500.96369, L5.95242 #### [facility] [address] [place] [address] Potassium [Moles/Vol] 4.4 mmol/L Normal 3.5-5.1 [facility] Comment on above: Order Comment: Campu s: M Performed By: #### L 500.68851, L5.62885 #### [facility] [address] [place] [address] Sodium [Moles/Vol] 136 mmol/L Normal 136-145 [facility] Comment on above: Order Comment: Campu s: M Performed By: #### L 500.21575, L500.37056 #### [facility] [address] [place] [address]683 Urea nitrogen [Mass/Vol] 30 mg/dL High 7-26 [facility] Comment on above: Order Comment: Campu s: M Performed By: #### L 500.07243, L500.52762 #### [facility] [address] [place], [place] [address] Urea nitrogen/Creatinin e [Mass ratio] 54 mg/mg High 15-24 [facility] Comment on above: Order Comment: Campu s: M Performed By: #### L 500.70862, L500.58269 #### [facility] [address] [place] [address] CBCon 12-04-2020 Erythrocyte distribution width (RBC) [Ratio] 11.9 % Normal 11-14.5 [facility] Comment on above: Order Comment: Campu s: M Performed By: #### L 200.37165 #### [facility] [address] [place] [address] Hematocrit (Bld) [Volume fraction] 42.4 % Normal 35.0-47.0 [facility] Comment on above: Order Comment: Campu s: M Performed By: #### L 200.55512 #### [facility] [address] [place] [address] Hemoglobin (Bld) [Mass/Vol] 14.4 g/dL Normal 11.5-15.5 [facility] Comment on above: Order Comment: Campu s: M Performed By: #### L 200.20677 #### [facility] [address] [place] [address] MCHC (RBC) [Mass/Vol] 34.0 g/dL Normal 32.0-36.0 [facility] Comment on above: Order Comment: Campu s: M Performed By: #### L 200.77680 #### [facility] [address] [place] [address] MCV (RBC) [Entitic vol] 91.0 fL Normal 80.0-99.0 [facility] Comment on above: Order Comment: Campu s: M Performed By: #### L 200.25971 #### [facility] [address] [place] [address] Nucleated RBC/100 WBC (Bld) [Ratio] 0.0 % Normal Less than 1 [facility] Comment on above: Order Comment: Campu s: M Performed By: #### L 200.71504 #### [facility] [address] [place] [address] Platelet mean volume (Bld) [Entitic vol] 9.7 fL Normal 9.4-12.4 [facility] Comment on above: Order Comment: Campu s: M Performed By: #### L 200.51336 #### [facility] [address] [place] [address] PLT 244 K/CU MM Normal 150-450 [facility] Comment on above: Order Comment: Campu s: M Performed By: #### L 200.25753 #### [facility] [address] [place] [address] RBC 4.66 M/CU MM Normal 3.90-5.30 [facility] Comment on above: Order Comment: Campu s: M Performed By: #### L 200.91238 #### [facility] [address] [place] [address] WBC 10.1 K/CUMM Normal 4.5-11.0 [facility] Comment on above: Order Comment: Campu s: M Performed By: #### L 200.59842 #### [facility] [address] [place], [place] [address] GFR ESTon 12-04-2020 IF AMER Greater than 60 Normal [facility] Comment on above: Order Comment: Campu s: M Performed By: #### L 500.03000, L500.13834 #### [facility] [address] [place] [address] 63291 IF non-AFR AMER Greater than 60 Normal [facility] Comment on above: Order Comment: Campu s: M Performed By: #### L 500.01858, L500.80217 #### [facility] [address] [place] [address] GLUCOSE METERon 12-04-2020 Glucose [Mass/Vol] 222 mg/dL High 85-125 [facility] Glucose [Mass/Vol] 325 mg/dL High 85-125 [facility] Glucose [Mass/Vol] 347 mg/dL High 85-125 [facility] HP.IMS.CON 12-04-2020 CONSULTATION-H&P Normal [facility] HP.IMS.[facility] Patient Name: PHYLICIA FALK [address] [facility] [address] Date of : [address] [place], [place] [address] Unit Number: [id number] CONSULTATION-HandP Patient Status: REG SDC Attending Doctor: Jason Blanchard DO Service Date: 12/04/20 8076 History of Present Illness Referring Physician Floyd [...] heart rate (more content not included)... Normal [facility] CONSULTATION-H&P [facility] HP.IMS.[facility] Patient Name: PHYLICIA FALK [address] [employer] Date of : [address] [address] Unit Number: [id number] CONSULTATION-HandP Patient Status: REG [place] Attending Doctor: Jason Blanchard DO Service Date: 12/04/20 154 History of Present Illness Referring Physician Jason Blanchard DO Consulted Provider Addison Paez MD Source of Information Patient Reason for Consult Right foot diabetic infection status post trauma Living Situation Home - Independent History of Present Illness This is a 55-year-old white female history mkg-xurqxwm-dtvmuljfr diabetes mellitus who had localized trauma to [...] symptoms. Past Medical/Surgical Hx Past Medical History Piy-wffspip-fedeksddg diabetes mellitus. Multiple orthopedic surgeries in the [...] Last Action: Reviewed on 12/04/201138 by NICHOLE AHRRISON Sulfamethoxazole/Trimethoprim* (Bactrim Ds Tab*) 1 EACH TABLET [...] Time Addison Paez Verified/Reviewed by 12/04/20 1546 [facility] DATE OF SERVICE: TIME OF SURGERY: 1:30 [...] necrotic tendon for microbiology; both aerobic and [facility] PATIENT NAME: PHYLICIA FALK Dr. Schmid MEDICAL REC #: [id number] [place] [address] ADMIT DATE: DISCHARGE DATE: 12/06/20 OPERATIVE REPORT [...] in a stable condition. Jason Blanchard DO [id number] SSI File#: [id number] END OF DOCUMENT / CHANGE LOG FOLLOWS Last Edited By [employer]c. Signed By Jason Blanchard DO #LYKMI Jason Blanchard DO #LYKMI on 01/01/2021 09:47 ET on 01/01/2021 09:47 ET Revision Number - 2 [facility] PATIENT NAME: PHYLICIA FALK Dr. Schmid MEDICAL REC #: [id number] [place] [address] ADMIT DATE: DISCHARGE DATE: 12/06/20 OPERATIVE REPORT ATTENDING PHY: Jason Blanchard DO Verified/Reviewed by 01/01/21 0947 DEE [facility] PATIENT NAME: PHYLICIA FALK [address] [facility] [address] Schmid MEDICAL REC #: [id number] [place] [address] ADMIT DATE: DISCHARGE DATE: 12/06/20 OPERATIVE REPORT ATTENDING PHY: Jason Blanchard DO Normal [facility] Vital Signs Date Time Vital Sign Value Performing Clinician Justini carlos alberto 04-13-2023 08:06-0500 Diastolic blood pressure 72 mm[Hg] Yris Kelley DOCK GRADER.PURE CULTURE OPERATOR Work Phone: [facility] 04-13-2023 08:06-0500 Heart rate 98 /min Yris Kelley DOCK GRADER.PURE CULTURE OPERATOR Work Phone: [facility] 04-13-2023 08:06-0500 Respiratory rate 16 /min Yris Kelley DOCK GRADER.PURE CULTURE OPERATOR Work Phone: [facility] 04-13-2023 08:06-0500 SaO2% (BldA) [Mass fraction] 96 % Yris Kelley DOCK GRADER.PURE CULTURE OPERATOR Work Phone: [facility] 04-13-2023 08:06-0500 Systolic blood pressure 104 mm[Hg] Yris Kelley DOCK GRADER.PURE CULTURE OPERATOR Work Phone: [facility] 01-02-2023 15:19-0400 Body temperature 97.59 [degF] Nichole Matos DOCK GRADER.PURE CULTURE OPERATOR Work Phone: [facility] 01-02-2023 15:19-0400 Body weight 95.25 kg Nichole Matos DOCK GRADER.PURE CULTURE OPERATOR Work Phone: [facility] 01-02-2023 15:19-0400 Diastolic blood pressure 72 mm[Hg] Nichole Matos DOCK GRADER.PURE CULTURE OPERATOR Work Phone: [facility] 01-02-2023 15:19-0400 Heart rate 110 /min Nichole Matos DOCK GRADER.PURE CULTURE OPERATOR Work Phone: [facility] 01-02-2023 15:19-0400 Respiratory rate 16 /min Nichole Matos DOCK GRADER.PURE CULTURE OPERATOR Work Phone: [facility] 01-02-2023 15:19-0400 SaO2% (BldA) [Mass fraction] 97 % Nichole Matos DOCK GRADER.PURE CULTURE OPERATOR Work Phone: [facility] 01-02-2023 15:19-0400 Systolic blood pressure 120 mm[Hg] Nichole Matos DOCK GRADER.PURE CULTURE OPERATOR Work Phone: [facility] 06-17-2022 13:13-0500 Body height 172.7 cm Estefanía Schmidt DOCK GRADER.PURE CULTURE OPERATOR Work Phone: [facility] 06-17-2022 13:13-0500 Body weight 78.93 kg Estefanía Schmidt APRN.PURE CULTURE OPERATOR Work Phone: [facility] 06-17-2022 13:13-0500 Diastolic blood pressure 70 mm[Hg] Estefanía Schmidt DOCK GRADER.PURE CULTURE OPERATOR Work Phone: [facility] 06-17-2022 13:13-0500 Systolic blood pressure 114 mm[Hg] Estefanía Schmidt DOCK GRADER.PURE CULTURE OPERATOR Work Phone: [facility] 12-02-2021 16:01-0400 Body temperature 98.1 [degF] Cuong Trujillo MD Work Phone: [facility] 12-02-2021 16:01-0400 Body weight 76.2 kg Cuong Trujillo MD Work Phone: [facility] 12-02-2021 16:01-0400 Diastolic blood pressure 68 mm[Hg] Cuong Trujillo MD Work Phone: [facility] 12-02-2021 16:01-0400 Heart rate 108 /min Cuong Trujillo MD Work Phone: [facility] 12-02-2021 16:01-0400 Respiratory rate 16 /min Cuong Trujillo MD Work Phone: [facility] 12-02-2021 16:01-0400 SaO2% (BldA) [Mass fraction] 98 % Cuong Trujillo MD Work Phone: [facility] 12-02-2021 16:01-0400 Systolic blood pressure 116 mm[Hg] Cuong Trujillo MD Work Phone: [facility] 10-08-2021 11:00-0400 Body weight 77.56 kg Cuong Trujillo MD Work Phone: [facility] 10-08-2021 11:00-0400 Diastolic blood pressure 58 mm[Hg] Cuong Trujillo MD Work Phone: [facility] 10-08-2021 11:00-0400 Heart rate 88 /min Cuong Trujillo MD Work Phone: [facility] 10-08-2021 11:00-0400 Systolic blood pressure 92 mm[Hg] Cuong Trujillo MD Work Phone: [facility] Encounters Encounter Date Encounter Type Care Provider Facility Start: 02-02-2024 End: 02-02-2024 ambulatory Clarissa Sheehan MA [facility] Start: 02-02-2024 End: 02-02-2024 Patient encounter procedure Clarissa Sheehan MA [facility] [place] Comment on above: Population Health [facility] Start: 02-01-2024 End: 02-01-2024 ambulatory CUONG TRUJILLO Facility:[facility] Start: 01-26-2024 End: 01-26-2024 Chart abstracting Cuong Trujillo MD Work Phone: [facility] [place] Start: 01-09-2024 End: 01-10-2024 Refill Cuong Trujillo MD Work Phone: [facility] [place] Comment on above: Refill Request Start: 12-29-2023 Refill Cuong Trujillo MD Work Phone: Family [facility] [place] Comment on above: Refill Request Start: 11-16-2023 ambulatory Clarissa A Rogerio [facility] [place] Start: 11-16-2023 Patient encounter procedure [facility] [place] Comment on above: Population Health Na vigation Outreach ([facility]) Start: 11-01-2023 Telephone encounter Yris ogden APRN.PURE CULTURE OPERATOR Work Phone: [facility] [place] Comment on above: Results Start: 10-28-2023 End: 10-28-2023 ambulatory [facility] Facility:[facility] Start: 10-19-2023 Refill Cuong Trujillo MD Work Phone: [facility] [place] Comment on above: Refill Request Start: 07-15-2023 Refill Cuong Trujillo MD Work Phone: [facility] [place] Comment on above: Refill Request Start: 05-05-2023 ambulatory Cuong Trujillo MD Work Phone: [facility] [place] Comment on above: Mounjaro Start: 04-24-2023 Refill Cuong Trujillo MD Work Phone: [facility] [place] Comment on above: Refill Request Start: 04-21-2023 Documentation procedure Mammog yousif Coordinator [facility] Start: 04-21-2023 Letter encounter Mammography Coordinator [facility] Department Start: 04-21-2023 End: 04-21-2023 ambulatory ESTEFANÍA SCHMIDT Facility:[facility] Start: 04-13-2023 End: 04-13-2023 ambulatory [facility] Facility:[facility] Start: 04-13-2023 End: 04-13-2023 Office outpatient visit 25 minutes Yris Kelley APRN.PURE CULTURE OPERATOR Work Phone: [facility] [place] Comment on above: Type 2 diabetes rickie itus with complication, without long-term current use of insulin (HCC) (Primary Dx); Narcolepsy due to underlying condition without cataplexy; Medication management; Bilateral carotid artery stenosis; Hypothyroidism, unspecified type; Hyperlipidemia, mixed; Encounter for immunization; Chronic ulcer of right foot due to diabetes mellitus (HCC) Start: 04-02-2023 End: 04-02-2023 ambulatory CUONG TRUJILLO Facility:[facility] Start: 03-29-2023 Refill Cuong Trujillo MD [...] 01-02-2023 End: 01-02-2023 Patient encounter procedure Nichole Maots APRN.PURE CULTURE OPERATOR Work Phone: [facility] Comment on above: Dysuria (Primary Dx) Start: 12-20-2022 Refill Cuong Trujillo MD Work Phone: [facility] [place] Comment on above: Refill Request Start: 09-25-2022 Telephone encounter Cuong Trujillo MD Work Phone: [facility] [place] Comment on above: Pre-Op Exam Start: 09-13-2022 Refill Cuong Trujillo MD Work Phone: [facility] [place] Comment on above: Refill Request Start: 07-28-2022 Refill Cuong Trujillo MD Work Phone: [facility] [place] Comment on above: Opened In Error Start: 07-26-2022 Refill Marylou Sy on PA-C Work Phone: [facility] [place] Comment on above: Refill Request Start: 07-20-2022 Refill Cuong Trujillo MD Work Phone: [facility] [place] Comment on above: Refill Request Start: 07-08-2022 Telephone encounter Home Bustos PA-C Work Phone: [facility] [place] Comment on above: Results Start: 06-17-2022 End: 06-17-2022 Patient encounter procedure Estefanía Schmidt APRN.PURE CULTURE OPERATOR Work Phone: OB/Gynecology Comment on above: Encounter for gyneco logical examination (general) (routine) without abnormal findings (Primary Dx); Encounter for screening for human papillomavirus (HPV); Pap smear for cervical cancer screening; Encounter for screening mammogram for breast cancer Start: 06-17-2022 End: 06-17-2022 Patient encounter status Estefanía Schmidt APRN.PURE CULTURE OPERATOR Work Phone: OB/Gynecology Start: 06-08-2022 Telephone encounter Cuong Trujillo MD Work Phone: [facility] [place] Comment on above: Appointment Start: 04-03-2022 Telephone [...] Request Start: 02-17-2022 Telephone encounter Yris ogden APRN.PURE CULTURE OPERATOR Work Phone: [facility] [place] Comment on above: Results Start: 02-04-2022 ambulatory Cuong Trujillo MD Work Phone: [facility] [place] Comment on above: Dr Jim Falk, ENT Start: 01-27-2022 Telephone encounter Cuong Trujillo MD Work Phone: [facility] [place] Comment on above: Orders ([facility]) Start: 01-25-2022 Refill Cuong Trujillo MD Work Phone: [facility] [place] Comment on above: Refill Request Start: 01-10-2022 Telephone encounter Cuong Trujillo MD Work Phone: [facility] [place] Comment on above: Results Start: 12-12-2021 End: 12-12-2021 Subsequent hospital visit by physician [facility] (I-Stat) Work Phone: Cat Scan Comment on above: Scalp mass [R22.0] Start: 12-02-2021 End: 12-02-2021 Patient encounter procedure Cuong Trujillo MD Work Phone: [facility] [place] Comment on above: Sepsis due to methic [...] Start: 11-13-2021 Documentation procedure [facility] Start: 11-13-2021 Letter encounter Mammography Coordinator [facility] Department Start: 11-13-2021 End: 11-13-2021 Subsequent hospital visit by physician Screen Mammo [facility] Mammogram Comment on above: Encounter for screen ing mammogram for breast cancer [Z12.31] Start: 11-12-2021 ambulatory Cuong Trujillo MD Work Phone: Internal Medicine [facility] [place] Start: 10-23-2021 Telephone encounter Cuong Trujillo MD [...] Cuong Trujillo MD Work Phone: [facility] [place] Comment on above: Sugar meter Start: 10-09-2021 Telephone encounter Cuong Trujillo MD Work Phone: [facility] [place] Comment on above: Results Start: 10-08-2021 End: 10-08-2021 Patient encounter procedure Cuong Trujillo MD Work Phone: [facility] [place] Comment on above: Anemia, unspecified type (Primary Dx); Narcolepsy due to underlying condition without cataplexy; Type 2 diabetes mellitus with complication, without long-term current use of insulin (HCC); Hypothyroidism, unspecified type; Complex regional pain syndrome type 1 of lower extremity, unspecified laterality; Open wound of ankle and foot; Tenosynovitis Start: 09-22-2021 Telephone encounter Cuong Trujillo MD Work Phone: [facility] [place] Comment on above: Test strips RX Start: 06-24-2021 End: 07-17-2021 ambulatory MIKO GUZMAN [facility] Procedures Date Procedure Procedure Detail Performing Clinician Start: 01-20-2024 Hemoglobin A1c/Hemoglobin.total in Blood [facility] Provider Start: 04-13-2023 Drug tst prsmv instr mnt chem analyzers pr date Yris Kelley DOCK GRADER.PURE CULTURE OPERATOR Work Phone: Start: 04-13-2023 INFLUENZA VACCINE, A GE 6 MO - 64 YR, QUADRIVALENT (AFLURIA, FLULAVAL, FLUZONE) Yris Kelley DOCK GRADER.PURE CULTURE OPERATOR Work Phone: Start: 01-02-2023 Urnls dip stick/tabl et rgnt auto w/o microscopy Nichole Matos DOCK GRADER.PURE CULTURE OPERATOR Work Phone: Start: 12-12-2021 Ct head/brain w/o [...] Detail Author Start: 08-13-2027 Urine microalbumin profile [facility] Start: 06-17-2027 PAP TESTING PAP TESTING [facility] Start: 06-17-2027 Screening for malign ant neoplasm of cervix [facility] Start: 06-28-2025 COLOGUARD (FIT-DNA) COLOGUARD (FIT-D NA) [facility] Start: 06-28-2025 COLORECTAL CANCER SCREENING COLORECTAL CANCER SCREENING [facility] Start: 06-28-2025 Screening for malign ant neoplasm of colon [facility] Start: 04-21-2024 Hemoglobin A1c measurement HbA1C [facility] Start: 04-21-2024 Mammography Mammogram Screening [facility] Start: 04-21-2024 Screening for malign ant neoplasm of breast Mammogram Screening [facility] Start: 04-13-2024 Annual PCP Team Single Pass Soil Stabilizer Operator [place] Disease Visit Annual PCP Team Chronic Disease Visit [facility] Start: 04-13-2024 Covid-19 Vaccine ( season) Covid-19 Vaccine () [facility] Comment on above: Postponed from 01/22 (Declined at this time) Start: 04-13-2024 Hepatitis B Vaccine (1 of 3 - 19+ 3-dose series) Hepatitis B Vaccine (1 of 3 - 19+ 3-dose series) [facility] Comment on above: Postponed from 11/26 (Declined at this time) Start: 04-13-2024 Hepatitis B Vaccine (1 of 3 - 3-dose series) Hepatitis B Vaccine (1 of 3 - 3-dose series) [facility] Comment on above: Postponed from 11/26 (Declined at this time) Start: 04-13-2024 Pneumococcal vaccination [facility] Comment on above: Postponed from 11/26 (Declined at this time) Start: 01-28-2024 Hemoglobin A1c measurement HbA1C [facility] Start: 01-23-2024 Covid-19 Vaccine () Covid-19 Vaccine () [facility] Start: 01-23-2024 Influenza vaccination Influenza Vacc ine (#1) [facility] Start: 10-28-2023 End: 10-28-2023 ambulatory 10/28/2023 1:00 PM EDT Results Only [place] [facility]END[facility] [address] [facility] [place] [address] [place] [facility] Start: 10-08-2023 Hepatitis B screening URINE ALBUMIN:CREATININE RATIO [facility] Start: 10-01-2023 Hemoglobin A1c measurement HbA1C [facility] Start: 10-01-2023 Hemoglobin A1c/Hemoglobin.total in Blood HbA1C [facility] Start: 09-30-2023 ANNUAL PCP TEAM STEEL FINISHER [place] DISEASE VISIT ANNUAL PCP TEAM CHRONIC DISEASE VISIT [facility] Start: 06-13-2023 End: 12-12-2023 Hemoglobin A1c in Blood HGB A1C Lab Routine Type 2 diabetes mellitus with complication, without long-term current use of insulin (HCC) Expected: 06/13/2023, Expires: 12/12/2023 [facility] Work Phone: Comment on above: Expected: 06/13/2023 , Expires: 12/12/2023 Start: 06-13-2023 End: 12-12-2023 Lipid 1996 panel - Serum or Plasma LIPID PANEL BASIC Lab Routine Hyperlipidemia, mixed Expected: 06/13/2023, Expires: 12/12/2023 [facility] Work Phone: Comment on above: Expected: 06/13/2023 , Expires: 12/12/2023 Start: 06-13-2023 End: 12-12-2023 Thyrotropin [Units/volume] in Serum or Plasma TSH BLD Lab Routine Hypothyroidism, unspecified type Expected: 06/13/2023, Expires: 12/12/2023 [facility] Work Phone: Comment on above: Expected: 06/13/2023 , Expires: 12/12/2023 Start: 06-13-2023 End: 12-12-2023 Thyroxine (T4) free [Mass/volume] in Serum or Plasma T4 FREE/FREE THYROX Lab Routine Hypothyroidism, unspecified type Expected: 06/13/2023, Expires: 12/12/2023 [facility] Work Phone: Comment on above: Expected: 06/13/2023 , Expires: 12/12/2023 Start: 06-13-2023 End: 12-12-2023 Triiodothyronine (T3) [Mass/volume] in Serum or Plasma T3 BLD Lab Routine Hypothyroidism, unspecified type Expected: 06/13/2023, Expires: 12/12/2023 [facility] Work Phone: Comment on above: Expected: 06/13/2023 , Expires: 12/12/2023 Start: 06-08-2023 ANNUAL PCP TEAM STEEL FINISHER [place] DISEASE VISIT ANNUAL PCP TEAM CHRONIC DISEASE VISIT [facility] Start: 06-08-2023 HEPATITIS C SCREENING HEPATITIS C [facility] Comment on above: Postponed from 11/26 (Declined at this time) Start: 06-08-2023 Hepatitis C screening Hepatitis C [facility] Comment on above: Postponed from 11/26 (Declined at this time) Start: 06-05-2023 3 comp foot exam completed DIABETIC FOOT EXAM [facility] Start: 06-05-2023 Diabetic foot examination Diabetic F oot Exam [facility] Start: 05-24-2023 Behavioral Health Screening Behavioral Health Screening [facility] Start: 05-24-2023 Depression Assessment Depression Ass essment [facility] Start: 01-22-2023 Covid-19 Vaccine () Covid-19 Vaccine () [facility] Start: 01-22-2023 Influenza vaccination [facility] Start: 01-07-2023 Hemoglobin A1c/Hemoglobin.total in Blood HBA1C [facility] Start: 01-02-2023 End: 03-04-2023 Bacteria identified in Urine by Culture URINE CULTURE Microbiology Routine Dysuria Expected: 01/02/2023, Expires: 03/04/2023 [facility] Work Phone: Comment on above: Expected: 01/02/2023 , Expires: 03/04/2023 Start: 12-02-2022 ANNUAL PCP TEAM STEEL FINISHER [place] DISEASE VISIT ANNUAL PCP TEAM CHRONIC DISEASE VISIT [facility] Start: 11-13-2022 Mammography [facility] Start: 10-08-2022 ANNUAL PCP TEAM STEEL FINISHER [place] DISEASE VISIT ANNUAL PCP TEAM CHRONIC DISEASE VISIT [facility] Start: 10-08-2022 Hepatitis B screening URINE ALBUMIN:CREATININE RATIO [facility] Start: 07-28-2022 Hepatitis B surface antibody level LDL CHOLESTEROL [facility] Start: 07-25-2022 ANNUAL PCP TEAM STEEL FINISHER [place] DISEASE VISIT ANNUAL PCP TEAM CHRONIC DISEASE VISIT [facility] Start: 04-19-2022 End: 06-19-2022 Thyrotropin [Units/volume] in Serum or Plasma TSH BLD Lab Routine Hypothyroidism, unspecified type Expected: 04/19/2022, Expires: 06/19/2022 [facility] Work Phone: Comment on above: Expected: 04/19/2022 , Expires: 06/19/2022 Start: 04-10-2022 Hemoglobin A1c/Hemoglobin.total in Blood HBA1C [facility] Start: 03-25-2022 End: 05-25-2022 Bacteria identified in Urine by Culture URINE CULTURE Microbiology Routine Dark urine Expected: 03/25/2022, Expires: 05/25/2022 [facility] Work Phone: Comment on above: Expected: 03/25/2022 , Expires: 05/25/2022 Start: 03-25-2022 End: 05-25-2022 URINALYSIS, REFLEX MICROSCOPIC URINALYSIS, REFLEX MICROSCOPIC Lab Routine Dark urine Expected: 03/25/2022, Expires: 05/25/2022 [facility] Work Phone: Comment on above: Expected: 03/25/2022 , Expires: 05/25/2022 Start: 02-21-2022 End: 04-23-2022 Thyrotropin [Units/volume] in Serum or Plasma TSH BLD Lab Routine Hypothyroidism, unspecified type Expected: 02/21/2022, Expires: 04/23/2022 [facility] Work Phone: Comment on above: Expected: 02/21/2022 , Expires: 04/23/2022 Start: 01-28-2022 Hemoglobin A1c/Hemoglobin.total in Blood HBA1C [facility] Start: 01-22-2022 Influenza vaccination C [facility] Start: 11-20-2021 End: 01-20-2022 Thyrotropin [Units/volume] in Serum or Plasma TSH BLD Lab Routine Hypothyroidism, unspecified type Expected: 11/20/2021, Expires: 01/20/2022 [facility] Work Phone: Comment on above: Expected: 11/20/2021 , Expires: 01/20/2022 Start: 11-01-2021 Adult depression scr eening assessment DEPRESSION SCREENING [facility] Start: 10-08-2021 End: 12-08-2021 ALBUMIN/CREAT RATIO RND UR [facility] Work Phone: Comment on above: Expected: 10/08/2021 , Expires: 12/08/2021 Start: 10-08-2021 End: 12-08-2021 CBC W Auto Differential panel - Blood [facility] Work Phone: Comment on above: Expected: 10/08/2021 , Expires: 12/08/2021 Start: 10-08-2021 End: 12-08-2021 Folate [Mass/volume] in Serum or Plasma [facility] Work Phone: Comment on above: Expected: 10/08/2021 , Expires: 12/08/2021 Start: 10-08-2021 End: 12-08-2021 Hemoglobin A1c/Hemoglobin.total in Blood [facility] Work Phone: Comment on above: Expected: 10/08/2021 , Expires: 12/08/2021 Start: 10-08-2021 End: 12-08-2021 IRON + TIBC [facility] Work Phone: Comment on above: Expected: 10/08/2021 , Expires: 12/08/2021 Start: 10-08-2021 End: 12-08-2021 VITAMIN B12 BLOOD [facility] Work Phone: Comment on above: Expected: 10/08/2021 , Expires: 12/08/2021 Start: 10-07-2021 Mammography MAMMOGRAM [facility] Start: 09-08-2021 COVID-19 VACCINE (4 - Booster for Moderna series) COVID-19 VACCINE (4 - Booster for Moderna series) [facility] Start: 07-22-2021 3 comp foot exam completed DIABETIC FOOT EXAM [facility] Start: 07-05-2021 COVID-19 VACCINE (4 - Booster for Moderna series) COVID-19 VACCINE (4 - Booster for Moderna series) [facility] Start: 07-05-2021 COVID-19 VACCINE (4 - Moderna series) COVID-19 VACCINE (4 - Moderna series) [facility] Start: 05-24-2021 DEPRESSION ASSESSMENT DEPRESSION ASS ESSMENT [facility] Start: 10-25-2019 Hepatitis B screening URINE ALBUMIN:CREATININE RATIO [facility] Start: 06-14-2019 HPV TESTING HPV TESTING [facility] Start: 06-14-2019 PAP TESTING PAP TESTING [facility] Start: 07-02-2018 COLORECTAL CANCER SCREENING COLORECTAL CANCER SCREENING [facility] Start: 07-02-2018 FECAL OCCULT BLOOD FECAL OCCULT BLOO D [facility] Start: 07-02-2018 Screening for malign ant neoplasm of colon Fecal Occult Blood [facility] Start: 2014 SHINGRIX VACCINE (1 of 2) RUBIO GRIX VACCINE (1 of 2) [facility] Start: 2009 COLOGUARD (FIT-DNA) COLOGUARD (FIT-D NA) [facility] Start: 2009 Colonoscopy COLONOSCOPY [facility] Start: [address] COLONOGRAPHY [facility] Start: 2009 Screening for malign ant neoplasm of colon [facility] Start: 2009 SIGMOIDOSCOPY SIGMOIDOSCOPY [facility] Start: 11-27-1983 HEPATITIS B (1 of 3 - Risk 3-dose series) HEPATITIS B (1 of 3 - Risk 3-dose series) [facility] Start: 11-27-1983 TWO PNEUMOVAX 5 YEAR S APART PRIOR TO AGE 65 (#1) TWO PNEUMOVAX 5 YEARS APART PRIOR TO AGE 65 (#1) [facility] Start: 1982 Anxiety Screening Anxiety Screening [facility] Start: 1982 Depression Screening Depression Scre ening [facility] Start: 1982 HEPATITIS C SCREENING HEPATITIS C [facility] Start: 1982 Hepatitis C screening Hepatitis C [facility] Start: 1982 HIV SCREENING HIV SCREENING [facility] Start: 1974 Glaucoma screening Dilated Retinal E xam [facility] Start: 1974 Hepatitis C antibody , confirmatory test DILATED RETINAL EXAM [facility] Start: 1970 PNEUMOCOCCAL (1 - PCV) PNEUMOCOCCAL (1 - PCV) [facility] Start: 1970 Pneumococcal vaccination Pneum ococcal Vaccine (1 - PCV) [facility] Start: 1964 HEPATITIS B (1 of 3 - 3-dose series) HEPATITIS B (1 of 3 - 3-dose series) [facility] Start: 1964 Hepatitis B Vaccine (1 of 3 - 3-dose series) Hepatitis B Vaccine (1 of 3 - 3-dose series) [facility] End: 01-01-2023 Ct head/brain w/o contrast material CT BRAIN WO IVCON Radiology Routine Scalp mass Thunderclap headache 1 Occurrences starting 12/02/2021 until 01/01/2023 [facility] Work Phone: Comment on above: 1 Occurrences starti ng 12/02/2021 until 01/01/2023 Hemoglobin.gastroint estina l.lower [Presence] in Stool by Immunoassay FECAL OCCULT BLOOD TEST Lab Routine Heme + stool Positive colorectal cancer screening using Cologuard test Ordered: 07/09/2022 [facility] Work Phone: Comment on above: Ordered: 07/09/2022 End: 07-17-2023 BALTAZAR SCREENING BALTAZAR SCREENING Radiology Routine Encounter for screening mammogram for breast cancer 1 Occurrences starting 06/17/2022 until 07/17/2023 [facility] Work Phone: Comment on above: 1 Occurrences starti ng 06/17/2022 until 07/17/2023 PAIN PANEL, UR QUANT PAIN PANEL, UR QUANT Lab Routine Narcolepsy due to underlying condition without cataplexy Medication management 04/13/2023 9:27 AM [facility] Work Phone: PAIN PANEL, UR QUANT PAIN PANEL, UR QUANT Lab Routine Narcolepsy due to underlying condition without cataplexy Medication management 04/13/2023 9:27 AM [facility] Work Phone: PAP FLUID CERVICAL SCREENING PAP FLUID CERVICAL SCREENING Lab Routine Encounter for gynecological examination (general) (routine) without abnormal findings Encounter for screening for human papillomavirus (HPV) Pap smear for cervical cancer screening 06/17/2022 1:48 PM [facility] Work Phone: SPECIMEN VALIDITY, URINE SPECIME N VALIDITY, URINE Lab Routine Narcolepsy due to underlying condition without cataplexy Medication management 04/13/2023 9:27 AM EST [facility] Work Phone: End: 04-13-2024 US CAROTID ARTER[facility] US CAROTID ARTER[facility] Vascular Lab Routine Bilateral carotid artery stenosis 1 Occurrences starting 04/13/2023 until 04/13/2024 [facility] Work Phone: Comment on above: 1 Occurrences starti ng 04/13/2023 until 04/13/2024 [facility] Immunizations Immunization Date Immunization Notes Care Provider Akhil oretga 04-13-2023 influenza, injectabl e, quadrivalent, contains preservative Yris Kelley DOCK GRADEREDINSON Work Phone: [facility] 04-13-2023 influenza virus vaccine, unspecified formulation Cuong Trujillo MD Work Phone: [facility] 08-29-2020 COVID-19 vaccine, fu ll dose (MODERNA) Cuong Trujillo MD Work Phone: [facility] 07-18-2020 COVID-19 vaccine, fu ll dose (MODERNA) Cuong Trujillo MD Work Phone: [facility] 05-06-2018 influenza, injectabl e, quadrivalent, contains preservative Cuong Trujillo MD Work Phone: [facility] 05-06-2018 influenza virus vaccine, unspecified formulation Cuong Trujillo MD Work Phone: [facility] 08-12-2017 tetanus and diphther ia toxoids, adsorbed, preservative free, for adult use (5 Lf of tetanus toxoid and 2 Lf of diphtheria toxoid) Cuong Trujillo MD Work Phone: [facility] 02-24-2017 influenza, seasonal, injectable Cuong Trujillo MD Work Phone: [facility] 03-11-2016 influenza, injectabl e, quadrivalent, contains preservative Cuong Trujillo MD Work Phone: [facility] 03-29-2014 influenza, seasonal, injectable Cuong Trujillo MD Work Phone: [facility] 03-17-2012 influenza virus vaccine, unspecified formulation Cuong Trujillo MD Work Phone: [facility] 03-22-2008 influenza virus vaccine, unspecified formulation Cuong Trujillo MD Work Phone: [facility] 04-12-2007 tetanus toxoid, redu ernesto diphtheria toxoid, and acellular pertussis vaccine, adsorbed Cuong Trujillo MD Work Phone: [facility] Work Phone: Payers Date Payer Category Payer Unknown HEATHER TOBIASX / HEATHER [id number] 2022-Present [phone] [address] [address] [place] [address] EPO [id number] 2022 Unknown [id number] 2021 Medicaid [place] [employer] [place] [id number] 2021-Present [phone] [address] [place] [address] Medicaid [id number] 2021 Medicaid [id number] 2019 Unknown [id number] 1965 Unknown [id number] Unknown [id number] Social History Date Type Detail Facility Start: 10-28-2010 End: 06-17-2022 Tobacco smoking status NHIS Ex-smoker [facility] Work Phone: Start: 10-28-1980 End: 10-28-1989 History of tobacco use Current smoker [facility] Work Phone: Start: 10-28-2010 End: 09-29-2022 Cigarettes smoked current (pack per day) - Reported 0.1 [facility] Start: 10-28-2010 End: 06-17-2022 Tobacco use and exposure Smokeless tobacco non-user [facility] Work Phone: Start: 01-13-2021 End: 04-13-2023 Alcohol intake Current drinker of alcohol (finding) [facility] Start: 11-01-2020 History SDOH Alcohol Frequency 98 [facility] Start: 12-16-2012 History SDOH Alcohol Comment 6-10 times a year [facility] Start: 11-01-2020 End: 06-07-2022 History SDOH Physical Activity DPW 3 [facility] Start: 11-01-2020 History SDOH Physica l Activity MPS 9 [facility] Start: 07-22-2021 End: 06-07-2022 History SDOH Housing Unable to Pay 2 [facility] Start: 07-22-2021 End: 06-07-2022 History SDOH Housing Places Lived 1 [facility] Start: 1965 Sex Assigned At Female [facility] Start: 09-28-2021 End: 11-13-2021 Exposure to SARS-CoV-2 (event) Not sure [facility] Start: 10-28-1980 End: 10-28-1989 History of tobacco use Cigarette Smoker [facility] Work Phone: Start: 06-07-2022 History SDOH Social Connections Phone 5 [facility] Start: 06-07-2022 History SDOH Physica l Activity DPW 0 [facility] Start: 06-06-2022 End: 09-29-2022 Social connection and isolation panel [facility] Do you belong to any clubs or organizations such as gnosticist groups, unions, fraternal or athletic groups, or school groups? Yes [facility] Are you now , , , , never or living with a partner? [facility] How often to you hav e a drink containing alcohol? Monthly or less [facility] How many standard dr inks containing alcohol do you have on a typical day? 1 or 2 [facility] How often do you hav e 6 or more drinks on 1 occasion? Never [facility] How hard is it for y ou to pay for the very basics like food, housing, medical care, and heating Hard [facility] Adult Depression Screening Assessment 0 [facility] Work Phone: Do you feel stress - tense, restless, nervous, or anxious, or unable to sleep at night because your mind is troubled all the time - these days [OSQ] Not at all [facility] (I/We) worried whe er (my/our) food would run out before (I/we) got money to buy more. Sometimes true [facility] In the past 12 month s, was there a time when you were not able to pay the mortgage or rent on time? No [facility] Start: 10-04-2020 Gender identity Identifies as female gender (finding) [facility] Medical Equipment Procedure Code Equipment Code Equipment Original Text Equipment Identifier Dates Duraseal 5ml - [id number] Start: 12-23-2012 Comment on above: Description: Seble ruvalcaba Duraseal 5ml - [id number] Start: 01-25-2013 [id number] Start: 03-18-2020 End: 10-23-2021 Comment on above: [...] 11:17 AM EDTTelephone Encounter - Tyesha العلي APRN.[facility] - 01/10/2024 11:17 AM EDT Note Date & Type Note Facility 02-02-2024 Note HNO ID: [id number] Author: CLARISSA SHEEHAN MA Service: ? Author Type: Predatory Game Hunter Type: Progress Notes Filed: 02/02/2024 16:53 Note [...] Sheehan MA February 02, 2024 4:52 PM [facility] 02-02-2024 History of Presen t illness Narrative [...] 2024 4:52 PM documented in this encounter [facility] 02-02-2024 Note Patient Outreach (NE TNAV) PHYLICIA FALK ([id number]) 1965 F Date Time Provider Department 02/02/24 [...] or unnecessary to reach patient: Left message [employer] message sent [facility] related Navigation Signature: Clarissa Sheehan MA February [...] Navigation Outreach [[id number]] Cmt: Heather [facility] Prescriptions as of 02/02/2024 - metFORMIN (GLUCOPHAGE) [...] Encounter Status:Closed by CLARISSA SHEEHAN on 02/02/24 [facility] 01-10-2024 Telephone encounter Note The following approved [...] A Refill not appropriate Tyesha العلي APRN.CNP [facility] 01-10-2024 Telephone encounter Note Nuvigil is controlled. Must be seen every 3 months for refill. Urine tox screen every 6 months. This is required by the COMPA. Also, overdue for appt. Last HgA1c was >11. [facility] 01-10-2024 Miscellaneous Notes The following approved [...] 2024 8:44 AM documented in this encounter [facility] 01-10-2024 Telephone encounter Note Prescription Refill [...] Oca LPN January 10, 2024 8:44 AM [facility] 12-29-2023 Telephone encounter Note Prescription Refill [...] Lopez LPN December 29, 2023 3:10 PM [facility] 12-29-2023 Miscellaneous Notes Prescription Refill Information [...] 2023 3:10 PM documented in this encounter [facility] 11-16-2023 Note HNO ID: [id number] Author: CLARISSA SHEEHAN MA Service: ? Author Type: Predatory Game Hunter Type: Progress Notes Filed: 11/16/2023 13:42 Note [...] Sheehan MA November 16, 2023 1:11 PM [facility] 11-16-2023 History of Presen t illness Narrative [...] or unnecessary to reach patient: Left message MyCShootHomet message sent Navigation Signature: Clarissa Sheehan MA November 16, 2023 1:11 PM documented in this encounter [facility] 11-16-2023 Note Patient Outreach (BRUNA TNAV) PHYLICIA FALK ([id number]) 1965 F Date Time Provider Department 11/16/23 [...] Navigation Outreach [3910] Cmt: Heather [facility] Prescriptions as of 11/16/2023 - baclofen 10 [...] Encounter Status:Closed by CLARISSA SHEEHAN on 11/16/23 [facility] 11-01-2023 Telephone encounter Note Referral faxed. Jose De Jesus Lopez LPN [facility] 11-01-2023 Miscellaneous Notes Referral faxed. Jose De Jesus Loepz LPN Referral placed. Please help schedule. Yris Kelley APRN.PURE CULTURE OPERATOR TC to pt, notified of provider response. Pt states she was only on Mounjaro for the 1st 2 months and stopped d/t cost. She never picked up the increased dose. Pt states ok, I think I'm going to go back to Dr. Osman . (Endo in [place].) Jose De Jesus Lopez LPN The thyroid [...] Yris Kelley APRN.EVI documented in this encounter [facility] 11-01-2023 Telephone encounter Note Referral placed. Please help schedule. Yris Kelley APRN.EVI [facility] 11-01-2023 Telephone encounter Note TC to pt, notified of provider response. Pt states she was only on Mounjaro for the 1st 2 months and stopped d/t cost. She never picked up the increased dose. Pt states ok, I think I'm going to go back to Dr. Osman . (Endo in [place].) Jose De Jesus Lopez LPN [facility] 11-01-2023 Telephone encounter Note The thyroid [...] see if it has better coverage. T [facility] 11-01-2023 Telephone encounter Note Patient notified of results, verbalizes understanding of instructions. Pt stated she is not taking the Mounjaro to expensive. And T3 and T4 labs are off. Amy St LPN T [facility] 11-01-2023 Telephone encounter Note Can we please let patient know that I received her lab results. Her A1C went up to 11.2, which is too high. Has she been taking the metformen and the mounjaro? Any missed doses? Yris Kelley APRN.EVI T [facility] 10-19-2023 Telephone encounter Note Patient has [...] Please advise. Thank you. Tyesha Hung LPN. [facility] 10-19-2023 Miscellaneous Notes Patient has been [...] Tyesha Hung LPN. documented in this encounter [facility] 07-16-2023 Miscellaneous Notes Patient has been [...] Tyesha Hung LPN. documented in this encounter [facility] 05-05-2023 Miscellaneous Notes Patient last visit 04/13/23 Follow up appointment scheduled none Sharyn Blancally signed by Sharyn Hurt Ma at 05/05/2023 11:51 AM EST documented in this encounter [facility] 04-26-2023 Miscellaneous Notes Patient phones requesting refills as follows: Requested Prescriptions Pending Prescriptions Disp Refills baclofen 10 mg tablet 90 tablet 1 Sig: TAKE 1 TABLET BY MOUTH THREE TIMES DAILY NEEDED FOR MUSCLE SPASM. DO NOT USE WITH FLEXERIL SIMBA 04/13/23 NOV no upcoming appt Please review and advise. Jose De Jesus Lopez documented in this encounter [facility] 04-21-2023 Miscellaneous Notes April 21, 2023 PID: [id number] Phylicia Falk [address] [place] [address] Dear Ms. Falk, We are pleased to [...] report will be kept on file at [facility] as part of your permanent medical record and are available for your continuing care. Thank you for allowing us to help in meeting your health care needs. Sincerely, Dr. Madison Interpreting Radiologist [facility] (Normal over 40) documented in this encounter [facility] 04-21-2023 Note HNO ID: [id number] Author: Ellie Huggins, Mammo Tech Service: ? Author Type: Generation Engineering Technologist Type: Progress Notes Filed: 04/21/2023 9:04 AM [...] DATA: Not applicable SIGNED BY: Ellie Huggins [email or web address] April 21, 2023 8:52 AM [facility] 04-13-2023 Instructions Yris Kelley APRN.CNP - 04/13/2023 8:34 AM EST Continue the same medication. Get labs and recheck in 3 months. (Fasting labs). Schedule carotid duplex when ready. documented in this encounter [facility] 04-13-2023 Note HNO ID: [id number] Author: Yris Kelley APRN.EVI Service: ? Author [...] type 2, controlled, without complications ([facility]) 08/12/2017 Muscle spasm Myalgia and myositis, unspecified [...] in 3 month (more content not included)... [facility] 04-13-2023 History of Presen t illness Narrative [...] type 2, controlled, without complications ([facility]) 08/12/2017 Muscle spasm Myalgia and myositis, unspecified [...] as needed for worsening/no improvement. Yris Kelley APRN.PURE CULTURE OPERATOR documented in this encounter [facility] 04-01-2023 Miscellaneous Notes Booked apt for 04/13/23 with Yris Kelley @8 am arriving at 7:45 am. Sent SI-BONEt message with above and to call back if this does not work for her. Anahi Layton LPN [facility] message sent. Jose De Jesus Lopez Script sent. Due for an appointment. Please let patient know. Yris Kelley APRN.PURE CULTURE OPERATOR Patient phones requesting refills as follows: Requested Prescriptions Pending Prescriptions Disp Refills liothyronine (CYTOMEL) 25 mcg tablet 90 tablet 0 Sig: Take 1 tablet by mouth once daily. metFORMIN (GLUCOPHAGE) 500 mg tablet 90 tablet 1 Sig: Take 1 tablet by mouth daily with breakfast. SIMBA 09/29/22 NOV no upcoming appt Please review and advise. Jose De Jesus Lopez documented in this encounter [facility] 03-30-2023 Miscellaneous Notes Patient phones requesting refills as follows: Requested Prescriptions Pending Prescriptions Disp Refills tirzepatide (MOUNJARO) 2.5 mg/0.5 mL pen injector 2 mL 0 Sig: Inject 2.5 mg subcutaneously one time a week. SIMBA 09/29/22 NOV no upcoming appt Please review and advise. Jose De Jesus Lopez documented in this encounter [facility] 03-05-2023 Miscellaneous Notes Edwin with [employer] called with authorization numbers for approvals below. 1) Armodafinil PA # [id number] for 12 months 03-04-23 thru 03-04-24 2) Mounjaro PA # [id number] for 12 months 03-04-23 thru 1-=12=24. Anahi [...] Sharyn Hurt Ma documented in this encounter [facility] 02-22-2023 Miscellaneous Notes Approval scanned into chart. Reyna Garcia MA Approval faxed to Ayana. Norah [facility] - phoned to report Cass has been approved for 12 months: 02-19-23 to 02-20-24. Norah will fax approval to Dr. Duffy office. Fax number given. Notified patient. Called to check on status with Irina and advised need to call Heather who is handling PA Heather PA number [phone] Spoke to Heather [facility] who checked on status of PA and is still pending and pushed to expedite due to being diabetic Sharyn Hurt Ma Electronic PA submitted for Cass Hurt Ma documented in this encounter [facility] 01-02-2023 History of Presen t illness Narrative This note was created using Notify Technologyriter. Subjective Phylicia Falk is a 57 year old female. 57 year old female with PMH fibromylalgia, thyroid, and spinal stenosis presents with complaints of possible UTI Acute onset 3 days + suprapubic pressure +frequency +burning Denies recent coitus Denies abdominal pain Denies vaginal bleeding Denies vaginal discharge Denies fever Denies using OTC or homeopathic States she had been working at [employer] all week, and holding her urine. The history is provided by the patient. No world language teacher was used. UTI This is a new [...] type 2, controlled, without complications ([facility]) 08/12/2017 Muscle spasm Myalgia and myositis, unspecified [...] URINE (POC) - URINE CULTURE Nichole Matos APRN.PURE CULTURE OPERATOR documented in this encounter [facility] 12-21-2022 Miscellaneous Notes Patient has been identified by name and date of : Yes Requested Prescriptions Pending Prescriptions Disp Refills liothyronine (CYTOMEL) 25 mcg tablet 90 tablet 0 Sig: Take 1 tablet by mouth once daily. RX INSTRUCTIONS: Patient aware RX will be sent to pharmacy. No need to notify patient. Vishnu Montes De Oca LPN documented in this encounter [facility] 09-25-2022 Miscellaneous Notes Patient returned call and went over notes and scheduled appt for 09/29/2022, at 340 pm with Freddie RUBIO. Left message for patient to call office. Needs a pre-op visit. [facility]. (Can use a 40 min hospital follow up spot) documented in this encounter [facility] 09-14-2022 Miscellaneous Notes Patient has been [...] Harriet Vargas MA documented in this encounter [facility] 08-05-2022 Miscellaneous Notes Pt notified. She states this will have to wait d/t she is dealing with some health issues with her mother. She is aware that orders are in for her to complete at her earliest convenience. Jose De Jesus Lopez LPN [employer]t message sent to pt notifying her to [...] cologuard test .gbgb4 documented in this encounter [facility] 07-27-2022 Miscellaneous Notes Patient phones requesting refills as follows: Requested Prescriptions Pending Prescriptions Disp Refills EPINEPHrine (EPIPEN) 0.3 mg/0.3 mL auto-injector 2 Each 1 Sig: Use as directed Please review and advise. Jose De Jesus Lopez LPN documented in this encounter [facility] 07-20-2022 Miscellaneous Notes Patient has been [...] Harriet Vargas MA documented in this encounter [facility] 06-17-2022 Instructions Estefanía Schmidt APRN.CNP - 06/17/2022 2:31 PM EST documented in this encounter [facility] 06-17-2022 History of Presen t illness Narrative Hospice Nurse Practitioner offered: Patient declines. Phylicia is a 56 [...] L1 SAB0 IAB0 Ectopic0 Multiple0 Live Births1 Computer Systems Analyst History LMP: 07/23/2016 (Exact Date), Postmenopausal Age at Menarche: Age at First : Age at Menopause: Computer Systems Analyst History Comments: Sexual Activity: Not Currently; Male Contraception: No contraception data on record PAST MEDICAL HISTORY Diagnosis Date Allergic rhinitis Degeneration of intervertebral disc, site unspecified Diabetes mellitus type 2, controlled, without complications ([facility]) 08/12/2017 Muscle spasm Myalgia and myositis, unspecified [...] external genitalia normal, normal Bartholin's glands, urethra, Clive's glands, no vulvar lesions, no cervical lesions, [...] Estefanía Schmidt APRN.EVI documented in this encounter [facility] 06-09-2022 Miscellaneous Notes Called PT LVM to call back and schedule with NURSES' ASSOCIATION EXECUTIVE DIRECTOR. Adenike PSS Please set up with NURSES' ASSOCIATION EXECUTIVE DIRECTOR. Dr Trujillo placed consult during virtual visit. documented in this encounter [facility] 04-03-2022 Miscellaneous Notes Completed and faxed back. Type of form: DWO Form received via fax When form is completed, Fax form to [phone] [facility] [employer] Form has been forwarded to Physician Desk: MONIKA Eric documented in this encounter [facility] 03-26-2022 Miscellaneous Notes Notified patient and verbalizes understanding. Culture pending but looks like possible uti. Cover with macrobid, rx sent. See urine result scanned into chart for patient. documented in this encounter [facility] 03-26-2022 Miscellaneous Notes Ann Marie calls [...] office. Hallie Gonzalez RN Ann Marie from [facility] calling asking for a urine order please. Patient urine is very dark colored and she had recent UTI, was hospitalized. Pending orders needs diagnosis. Please advise documented in this encounter [facility] 03-09-2022 Miscellaneous Notes Patient phones requesting refills as follows: Requested Prescriptions Pending Prescriptions Disp Refills liothyronine (CYTOMEL) 25 mcg tablet 90 tablet 3 Sig: Take 1 tablet by mouth once daily. SIMBA 12/02/21 NOV 04/10/22 Please review and advise. Jose De Jesus Lopez LPN documented in this encounter [facility] 02-17-2022 Miscellaneous Notes Pt notified. She [...] Yris Kelley APRN.EVI documented in this encounter [facility] 02-04-2022 Miscellaneous Notes placed Ok to enter referral? documented in this encounter [facility] 01-27-2022 Miscellaneous Notes Last office visit: 12/02/21 F/u scheduled: 02/14/22 Siobhan France Ma documented in this encounter [facility] 01-27-2022 Miscellaneous Notes Received two homecare orders for patient from [facility]. Order # [id number] (Move PT) and order # [id number] (social science research assistant appt). Orders placed on Papo's desk for review and signature. Needs faxed back to [phone]. Effie Ashraf documented in this encounter [facility] 01-10-2022 Miscellaneous Notes See orders for my chart documented in this encounter [facility] 12-12-2021 History of Presen t illness [...] 2021 2:01 PM documented in this encounter [facility] 12-02-2021 History of Presen t illness Narrative Patient presents with: Hospital Follow Up: 11/22/21 - 11/26/21 Fever, weakness, dizziness Mass: on forehead HPI: Patient presents today for office visit for follow up. HOSPITAL/ER FOLLOW UP: Reason for visit: hospital visit. Which facility: [facility] Date of visit: 11/22-11/26/21 Presented with [...] type 2, controlled, without complications ([facility]) 08/12/2017 Muscle spasm Myalgia and myositis, unspecified [...] Keep next ov documented in this encounter [facility] 11-28-2021 Miscellaneous Notes rx sent Patient reports she was recently hospitalized at [facility] for fever, weakness and dizziness and discharged on 11/26/21. Reports she has Staph infection and patient is currently taking antibiotics. Has PICC line. F/U appt made with Dr. Trujillo for 12/02/21. Patient calling to ask if diflucan can be ordered for her? She reports she is experiencing vaginal yeast infection symptoms due to antibiotic use. Uses [facility] in [place]. Please advise. Thank you. documented in this encounter [facility] 11-28-2021 Miscellaneous Notes Patient contacted and [...] closely. Please advise patient if needed, at [phone]. Thank you. documented in this encounter [facility] 11-13-2021 Miscellaneous Notes November 13, 2021 PID: [id number] Phylicia Falk [address] [place] [address] Dear Ms. Falk, We are pleased to [...] report will be kept on file at [facility] as part of your permanent medical record and are available for your continuing care. Thank you for allowing us to help in meeting your health care needs. Sincerely, Dr. Roca Interpreting Radiologist [facility] (Normal over 40) documented in this encounter [facility] 11-13-2021 History of Presen t illness Narrative Radiology Service Progress Note PATIENT NAME: Phylicia aFlk DATE OF SERVICE: November 13, 2021 TIME: [...] 2021 11:14 AM documented in this encounter [facility] 10-23-2021 Miscellaneous Notes Patient was notified Sharyn Hurt Ma rx sent, let her know Tried to complete PA on test strips but since only on one diabetic medication (janumet) insurance will only cover once a day testing. If patient desires to check BID will have to pay out of pocket can use [facility] brand otc. Sharyn Hurt Ma [facility]o with [facility] called and states the pt's insurance allows pot to test once a day and will allow 100 test strips in a 90 day period. Pt is testing twice a day. PA needs to be done per Soco. PRIOR AUTHORIZATION Medication for Prior Authorization: test strips Other formulary meds available : NO Insurance Company: Medicaid Insurance Company phone number: [phone] Patient insurance ID number: [id number] Anahi Layton LPN documented in this encounter [facility] 10-22-2021 Miscellaneous Notes rx sent for [...] Phone # to call for PA is [phone] ID# [id number]. (Routed note to RAMIRO teran regarding PA for levocetirizine) documented in this encounter [facility] 10-10-2021 Miscellaneous Notes \ documented in this encounter [facility] 10-09-2021 Miscellaneous Notes Patient was notified Sharyn Hurt Ma Sugars little higher but still very good. Thyroid is over corrected. Decrease synthroid to 125 mcg a day. Recheck tsh in six weeks. 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 She was also told she had covid at onset as well. Had MRSA bactermia and tenosynoviits of the right leg. Required iv vanco. Had dka on arrival Is seeing wound care at [facility]. Doing hyperbaric 5 days a week. [...] on insulin as well while in the skilled nursing but that has since been stopped due [...] Abs Lymph 1.00 - 4.00 k/uL 2.98 [place]% % 5.8 Abs [place] <0.87 k/uL 0.51 [place]% % 5.5 Abs [...] Negative Negative Ketones, Urine Negative Negative Specific [place], Ur 1.005 - 1.030 1.018 Hemoglobin/Blood,Ur Negative [...] type 2, controlled, without complications ([facility]) 08/12/2017 Muscle spasm Myalgia and myositis, unspecified [...] months and prn. documented in this encounter [facility] 09-22-2021 Miscellaneous Notes Patient is ok with twice daily testing. Let her know will only cover bid unless on insulin and make sure is ok with her. [facility] [place], reports insurance will only cover test strips 4 x's day, if patient takes insulin. If patient does not take insulin, will cover twice daily testing. Asking pcp to send new RX for twice daily or do PA on 4 x's day testing. documented in this encounter [facility] 01-08-2021 Note [facility] Jha 03-15-2017 History of Past [...] of this encounter (statuses as of 09/22/2021) [facility] History of Past illness Narrative* Problem [...] of this encounter (statuses as of 10/08/2021) [facility] of Past illness Narrative* Problem [...] of this encounter (statuses as of 10/09/2021) [facility] of Past [facility] Narrative* Problem [...] of this encounter (statuses as of 10/10/2021) [facility] of [facility] Narrative* Problem [...] of this encounter (statuses as of 10/13/2021) [facility] of [facility] Narrative* Problem [...] of this encounter (statuses as of 10/22/2021) [facility] of [facility] Narrative* Problem [...] of this encounter (statuses as of 10/23/2021) [facility] of Past [facility] Narrative* Problem [...] of this encounter (statuses as of 11/14/2021) [facility] Narrative* Problem [...] of this encounter (statuses as of 11/15/2021) [facility] Narrative* Problem [...] of this encounter (statuses as of 11/17/2021) [facility] Narrative* Problem [...] of this encounter (statuses as of 11/28/2021) [facility] of [facility] Narrative* Problem [...] of this encounter (statuses as of 12/02/2021) [facility] of [facility] Narrative* Problem [...] of this encounter (statuses as of 12/13/2021) [facility] Narrative* Problem [...] of this encounter (statuses as of 01/10/2022) [facility] Narrative* Problem [...] of this encounter (statuses as of 01/27/2022) [facility] Narrative* Problem [...] of this encounter (statuses as of 01/27/2022) [facility] Narrative* Problem [...] of this encounter (statuses as of 02/04/2022) [facility] Narrative* Problem [...] of this encounter (statuses as of 02/17/2022) [facility] Narrative* Problem [...] of this encounter (statuses as of 03/10/2022) [facility] Narrative* Problem [...] of this encounter (statuses as of 03/26/2022) [facility] Narrative* Problem [...] of this encounter (statuses as of 04/03/2022) [facility] Narrative* Problem [...] of this encounter (statuses as of 06/09/2022) [facility] Narrative* Problem [...] of this encounter (statuses as of 06/17/2022) [facility] Narrative* Problem [...] of this encounter (statuses as of 07/21/2022) [facility] Narrative* Problem [...] of this encounter (statuses as of 07/27/2022) [facility] Narrative* Problem [...] of this encounter (statuses as of 07/28/2022) [facility] N[facility]ative* Problem [...] of this encounter (statuses as of 08/05/2022) [facility] N[facility]ative* Problem [...] of this encounter (statuses as of 09/14/2022) [facility] N[facility]ative* Problem [...] of this encounter (statuses as of 09/25/2022) [facility] N[facility]ative* Problem [...] of this encounter (statuses as of 12/21/2022) [facility] N[facility]ative* Problem [...] of this encounter (statuses as of 01/02/2023) [facility] Narrative* Problem [...] of this encounter (statuses as of 02/23/2023) [facility] Narrative* Problem [...] of this encounter (statuses as of 03/05/2023) [facility] N[facility]ative* Problem [...] of this encounter (statuses as of 03/31/2023) [facility] N[facility]ative* Problem [...] of this encounter (statuses as of 04/01/2023) [facility] N[facility]ative* Problem Noted Date Diagnosed Date Resolved Date Hyperglycemia 03/15/2017 04/17/2019 Overview: Seeing endo. [place] Postoperative CSF leak 01/24/201303/11 Nausea 12/26/2012 03/11/2018 [...] of this encounter (statuses as of 04/13/2023) [facility] Narrative* Problem [...] of this encounter (statuses as of 04/23/2023) [facility]* Problem [...] of this encounter (statuses as of 04/26/2023) [facility] History of Past illness Narrative* Problem [...] of this encounter (statuses as of 05/06/2023) [facility] History of Past illness Narrative* Problem [...] of this encounter (statuses as of 07/16/2023) [facility] Diagnosis Type 2 diabetes mellitus with complication, without long-term current use of insulin ([facility]) [facility] Diagnosis Anemia, unspecified type- Primary Narcolepsy due to underlying condition without cataplexy Type 2 diabetes mellitus with complication, without long-term current use of insulin (HCC) Hypothyroidism, unspecified type Complex regional pain syndrome type 1 of lower extremity, unspecified laterality Open wound of ankle and foot Tenosynovitis Synovitis and tenosynovitis, unspecified [facility] Diagnosis Hypothyroidism, unspecified type [facility] Diagnosis Type 2 diabetes mellitus with complication, without long-term current use of insulin (HCC)- Primary [facility] Diagnosis Type 2 diabetes mellitus with complication, without long-term current use of insulin (HCC) [facility] Diagnosis Type 2 diabetes mellitus with complication, without long-term current use of insulin (HCC) [facility] Diagnosis Type 2 diabetes mellitus with complication, without long-term current use of insulin (HCC) [facility] Diagnosis Encounter for screening mammogram for breast cancer [facility] Diagnosis Encounter for screening mammogram for breast cancer [facility] Diagnosis Sepsis due to methicillin susceptible Staphylococcus aureus, unspecified whether acute organ dysfunction present (HCC)- Primary Cellulitis, unspecified cellulitis site Type 2 diabetes mellitus with complication, without long-term current use of insulin (HCC) Hypothyroidism, unspecified type Scalp mass Localized superficial swelling, mass, or lump Thunderclap headache Headache [facility] Diagnosis Scalp mass Localized superficial swelling, mass, or lump Thunderclap headache Headache [facility] Diagnosis Hypothyroidism, unspecified type- Primary [facility] Diagnosis Complex regional pain syndrome type 1 of lower extremity, unspecified laterality [facility] Diagnosis Dizziness- Primary Dizziness and giddiness [facility] Diagnosis Hypothyroidism, unspecified type [facility] Diagnosis Dark urine- Primary Other nonspecific finding on examination of urine [facility] Diagnosis Encounter for gynecological examination (general) (routine) without abnormal findings- Primary Encounter for screening for human papillomavirus (HPV) Special screening examination for human papillomavirus (HPV) Pap smear for cervical cancer screening Screening for malignant neoplasm of the cervix Encounter for screening mammogram for breast cancer [facility] Diagnosis Bee sting allergy Allergy to insects and arachnids [facility] Diagnosis Hypothyroidism, unspecified type [facility] Diagnosis Heme + stool- Primary Nonspecific abnormal finding in stool contents Positive colorectal cancer screening using Cologuard test [facility] Diagnosis Hypothyroidism, unspecified type documented in this encounter [facility] note* Diagnosis Hypothyroidism, unspecified type documented in this encounter [facility] note* Diagnosis Dysuria- Primary documented in this encounter [facility] note* Diagnosis Type 2 diabetes mellitus with [...] diabetes mellitus (HCC) documented in this encounter [facility] note* Diagnosis Complex regional pain syndrome type 1 of lower extremity, unspecified laterality documented in this encounter [facility] note* Diagnosis Narcolepsy due to underlying condition without cataplexy Hypothyroidism, unspecified type documented in this encounter [facility] note* Diagnosis Complex regional pain syndrome type 1 of lower extremity, unspecified laterality Hypothyroidism, unspecified type documented in this encounter [facility] note* Diagnosis Type 2 diabetes mellitus with complication, without long-term current use of insulin (HCC)- Primary documented in this encounter [facility] note* Diagnosis Hypothyroidism, unspecified type Complex regional pain syndrome type 1 of lower extremity, unspecified laterality documented in this encounter [facility] note* Diagnosis Type 2 diabetes mellitus with [...] condition without cataplexy documented in this encounter [facility] for referral (narrative)* Diagnostic Procedure Only (Routine) - Closed Specialty Diagnoses / Procedures Referred By Sofiya kruse Referred To Contact [facility] Diagnoses Encounter for screening mammogram for breast cancer Procedures [facility] SCREENING SCREENING MAMMOGRAPHY BI 2-VIEW BREAST INC CAD Cuong Trujillo MD [address] [place] [address] [facility] [address] [place] [address] Referral ID Status Reason Start Date Expiration Date V isits Requested Visits Authorized [id number] Closed Auto-Generate d Referral 11/12/2021 12/12/2022 1 1 [facility] for referral (narrative)* Diagnostic Procedure Only (Routine) - Closed Specialty Diagnoses / Procedures Referred By Contac t Referred To Contact [facility] Diagnoses Encounter for screening mammogram for breast cancer Procedures [facility] SCREENING SCREENING MAMMOGRAPHY BI 2-VIEW BREAST INC CAD Cuong Trujillo MD [address] [place] [address] [facility] [address] [place] [address] Referral ID Status Reason Start Date Expiration Date V isits Requested Visits Authorized [id number] Closed Auto-Generate d Referral 11/12/2021 12/12/2022 1 1 [facility] for referral (narrative)* Diagnostic Procedure Only (Routine) - Pending Review Specialty Diagnoses / Procedures Referred By Contac t Referred To Contact [facility] Diagnoses Encounter for screening mammogram for breast cancer Procedures BALTAZAR SCREENING SCREENING MAMMOGRAPHY BI 2-VIEW BREAST INC Estefanía Browning APRN.CNP [address] [place] [address] [facility] [address] [place] [address] Referral ID Status Reason Start Date Expiration Date Visits Requested Visits Authorized [id number] Pending Review Auto-Generat ed Referral 06/17/2022 07/17/2023 1 1 [facility] for referral (narrative)* Outpatient Procedure (Routine) - Pending Review Specialty Diagnoses / Procedures Referred By Contac t Referred To [facility] Diagnoses Bilateral carotid artery stenosis Procedures US CAROTID ARTERIES [facility] DUPLEX SCAN EXTRACRANIAL ART COMPL BI STUDY Yris Kelley APRN.CNP [address] [place] [address] [facility] [address] [place] [address] Referral ID Status Reason Start Date Expiration Date Visits Requested Visits Authorized [id number] Pending Review Auto-Generat ed Referral 3 04/12/2024 1 1 [facility] for visit Narrative* Diagnostic Procedure Only (Routine) - Closed Specialty Diagnoses / Procedures Referred By Sofiya kruse Referred To Contact [facility] Diagnoses Encounter for screening mammogram for breast cancer Procedures BALTAZAR SCREENING SCREENING MAMMOGRAPHY BI 2-VIEW BREAST INC CAD Cuong Trujillo MD [address] [place] [address] [facility] [address] [place] [address] Referral ID Status Reason Start Date Expiration Date V isits Requested Visits Authorized [id number] Closed Auto-Generate d Referral 11/12/2021 12/12/2022 1 1 [facility] Summary Purpose Family History No Family History Records FoundNo Family History Records FoundNo Family History Records FoundNo Family History Records Found Advance Directives No Advanced Directives Records FoundDocuments on File Type Date Recorded 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 Advance Directive(s) Documents on File Type Date Recorded 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 Advance Directive(s) Reason for Referral Specialty Diagnoses / Procedures Referred By Sofiya kruse Referred To Contact CT IMAGING Diagnoses Scalp mass Thunderclap headache Procedures CT BRAIN WO IVCON CT HEAD/BRAIN W/O CONTRAST MATERIAL Cuong Trujillo MD [address] [place] [address] Ct [facility] Referral ID Status Reason Start Date Expiration Date Visits Requested Visits Authorized [id number] Additional Clinical Info Needed Auto-Generat ed Referral 12/02/2021 01/01/2023 1 1 Referral ID Status Reason Start Date Expiration Date V isits Requested Visits Authorized [id number] Closed Auto-Generate d Referral 12/05/2021 01/03/2022 1 1 Specialty Diagnoses / Procedures Referred By Contac t Referred To Contact Ent - Otolaryngology Diagnoses Dizziness Procedures CONSULT TO ENT OFFICE/OUTPATIENT [facility] 60-74 MINUTES Cuong Trujillo MD [address] [place] [address] Referral ID Status Reason Start Date Expiration Date Visits Requested Visits Authorized [id number] Authorized PCP Requested Referral 02/04/2022 02/04/2023 1 1 Specialty Diagnoses / Procedures Referred By Contac t Referred To Contact General Surgery Diagnoses Heme + stool Procedures CONSULT TO GENERAL SURGERY OFFICE/OUTPATIENT [facility] 60-74 MINUTES Home Bustos PA-C [address] [place] [address] Referral ID Status Reason Start Date Expiration Date Visits Requested Visits Authorized [id number] Authorized PCP Requested Referral 07/08/2022 07/08/2023 1 1 Specialty Diagnoses / Procedures Referred By Contac t Referred To Contact Endocrinology Diagnoses Type 2 diabetes mellitus with complication, without long-term current use of insulin (HCC) Procedures CONSULT TO ENDOCRINOLOGY OFFICE/OUTPATIENT [facility] 60 MINUTES Yris Kelley APRN.CNP [address] [place] [address] Referral ID Status Reason Start Date Expiration Date Visits Requested Visits Authorized [id number] Authorized PCP Requested Referral 11/01/2023 10/31/2024 1 1 Additional Source Comments INFORMATION SOURCE (unrecogn ized section and content) DATE CREATED AUTHOR 06/26/2021 [facility] DATE CREATED AUTHOR AUTHOR'S ORGANIZ ATION 07/12/2021 [facility] DATE CREATED AUTHOR AUTHOR'S ORGANIZ ATION 07/31/2021 [facility] DATE CREATED AUTHOR AUTHOR'S ORGANIZ ATION 02/04/2024 [facility] Source Comments (unrecognize d section and content) In the event this informatio n is protected by the Federal Confidentiality of Alcohol and Drug Abuse Patient Records regulations: The Federal rules restrict any use of the information to criminally investigate or prosecute any alcohol or drug abuse patient.[facility] event this information is protected by the Federal Confidentiality of Alcohol and Drug Abuse Patient Records regulations: The Federal rules restrict any use of the information to criminally investigate or prosecute any alcohol or drug abuse patient.[facility] event this information is protected by the Federal Confidentiality of Alcohol and Drug Abuse Patient Records regulations: The Federal rules restrict any use of the information to criminally investigate or prosecute any alcohol or drug abuse patient.[facility] the event this information is protected by the Federal Confidentiality of Alcohol and Drug Abuse Patient Records regulations: The Federal rules restrict any use of the information to criminally investigate or prosecute any alcohol or drug abuse patient.[facility] the event this information is protected by the Federal Confidentiality of Alcohol and Drug Abuse Patient Records regulations: The Federal rules restrict any use of the information to criminally investigate or prosecute any alcohol or drug abuse patient.[facility] the event this information is protected by the Federal Confidentiality of Alcohol and Drug Abuse Patient Records regulations: The Federal rules restrict any use of the information to criminally investigate or prosecute any alcohol or drug abuse patient.[facility] the event this information is protected by the Federal Confidentiality of Alcohol and Drug Abuse Patient Records regulations: The Federal rules restrict any use of the information to criminally investigate or prosecute any alcohol or drug abuse patient.[facility] the event this information is protected by the Federal Confidentiality of Alcohol and Drug Abuse Patient Records regulations: The Federal rules restrict any use of the information to criminally investigate or prosecute any alcohol or drug abuse patient.[facility] the event this information is protected by the Federal Confidentiality of Alcohol and Drug Abuse Patient Records regulations: The Federal rules restrict any use of the information to criminally investigate or prosecute any alcohol or drug abuse patient.[facility] the event this information is protected by the Federal Confidentiality of Alcohol and Drug Abuse Patient Records regulations: The Federal rules restrict any use of the information to criminally investigate or prosecute any alcohol or drug abuse patient.[facility] the event this information is protected by the Federal Confidentiality of Alcohol and Drug Abuse Patient Records regulations: The Federal rules restrict any use of the information to criminally investigate or prosecute any alcohol or drug abuse patient.[facility] the event this information is protected by the Federal Confidentiality of Alcohol and Drug Abuse Patient Records regulations: The Federal rules restrict any use of the information to criminally investigate or prosecute any alcohol or drug abuse patient.[facility] the event this information is protected by the Federal Confidentiality of Alcohol and Drug Abuse Patient Records regulations: The Federal rules restrict any use of the information to criminally investigate or prosecute any alcohol or drug abuse patient.[facility] the event this information is protected by the Federal Confidentiality of Alcohol and Drug Abuse Patient Records regulations: The Federal rules restrict any use of the information to criminally investigate or prosecute any alcohol or drug abuse patient.[facility] the event this information is protected by the Federal Confidentiality of Alcohol and Drug Abuse Patient Records regulations: The Federal rules restrict any use of the information to criminally investigate or prosecute any alcohol or drug abuse patient.[facility] the event this information is protected by the Federal Confidentiality of Alcohol and Drug Abuse Patient Records regulations: The Federal rules restrict any use of the information to criminally investigate or prosecute any alcohol or drug abuse patient.[facility] the event this information is protected by the Federal Confidentiality of Alcohol and Drug Abuse Patient Records regulations: The Federal rules restrict any use of the information to criminally investigate or prosecute any alcohol or drug abuse patient.[facility] the event this information is protected by the Federal Confidentiality of Alcohol and Drug Abuse Patient Records regulations: The Federal rules restrict any use of the information to criminally investigate or prosecute any alcohol or drug abuse patient.[facility] the event this information is protected by the Federal Confidentiality of Alcohol and Drug Abuse Patient Records regulations: The Federal rules restrict any use of the information to criminally investigate or prosecute any alcohol or drug abuse patient.[facility] the event this information is protected by the Federal Confidentiality of Alcohol and Drug Abuse Patient Records regulations: The Federal rules restrict any use of the information to criminally investigate or prosecute any alcohol or drug abuse patient.[facility] the event this information is protected by the Federal Confidentiality of Alcohol and Drug Abuse Patient Records regulations: The Federal rules restrict any use of the information to criminally investigate or prosecute any alcohol or drug abuse patient.[facility] the event this information is protected by the Federal Confidentiality of Alcohol and Drug Abuse Patient Records regulations: The Federal rules restrict any use of the information to criminally investigate or prosecute any alcohol or drug abuse patient.[facility] the event this information is protected by the Federal Confidentiality of Alcohol and Drug Abuse Patient Records regulations: The Federal rules restrict any use of the information to criminally investigate or prosecute any alcohol or drug abuse patient.[facility] the event this information is protected by the Federal Confidentiality of Alcohol and Drug Abuse Patient Records regulations: The Federal rules restrict any use of the information to criminally investigate or prosecute any alcohol or drug abuse patient.[facility] the event this information is protected by the Federal Confidentiality of Alcohol and Drug Abuse Patient Records regulations: The Federal rules restrict any use of the information to criminally investigate or prosecute any alcohol or drug abuse patient.[facility] the event this information is protected by the Federal Confidentiality of Alcohol and Drug Abuse Patient Records regulations: The Federal rules restrict any use of the information to criminally investigate or prosecute any alcohol or drug abuse patient.[facility] the event this information is protected by the Federal Confidentiality of Alcohol and Drug Abuse Patient Records regulations: The Federal rules restrict any use of the information to criminally investigate or prosecute any alcohol or drug abuse patient.[facility] the event this information is protected by the Federal Confidentiality of Alcohol and Drug Abuse Patient Records regulations: The Federal rules restrict any use of the information to criminally investigate or prosecute any alcohol or drug abuse patient.[facility] the event this information is protected by the Federal Confidentiality of Alcohol and Drug Abuse Patient Records regulations: The Federal rules restrict any use of the information to criminally investigate or prosecute any alcohol or drug abuse patient.[facility] the event this information is protected by the Federal Confidentiality of Alcohol and Drug Abuse Patient Records regulations: The Federal rules restrict any use of the information to criminally investigate or prosecute any alcohol or drug abuse patient.[facility] the event this information is protected by the Federal Confidentiality of Alcohol and Drug Abuse Patient Records regulations: The Federal rules restrict any use of the information to criminally investigate or prosecute any alcohol or drug abuse patient.[facility] the event this information is protected by the Federal Confidentiality of Alcohol and Drug Abuse Patient Records regulations: The Federal rules restrict any use of the information to criminally investigate or prosecute any alcohol or drug abuse patient.[facility] the event this information is protected by the Federal Confidentiality of Alcohol and Drug Abuse Patient Records regulations: The Federal rules restrict any use of the information to criminally investigate or prosecute any alcohol or drug abuse patient.[facility] the event this information is protected by the Federal Confidentiality of Alcohol and Drug Abuse Patient Records regulations: The Federal rules restrict any use of the information to criminally investigate or prosecute any alcohol or drug abuse patient.[facility] the event this information is protected by the Federal Confidentiality of Alcohol and Drug Abuse Patient Records regulations: The Federal rules restrict any use of the information to criminally investigate or prosecute any alcohol or drug abuse patient.[facility] the event this information is protected by the Federal Confidentiality of Alcohol and Drug Abuse Patient Records regulations: The Federal rules restrict any use of the information to criminally investigate or prosecute any alcohol or drug abuse patient.[facility] the event this information is protected by the Federal Confidentiality of Alcohol and Drug Abuse Patient Records regulations: The Federal rules restrict any use of the information to criminally investigate or prosecute any alcohol or drug abuse patient.[facility] the event this information is protected by the Federal Confidentiality of Alcohol and Drug Abuse Patient Records regulations: The Federal rules restrict any use of the information to criminally investigate or prosecute any alcohol or drug abuse patient.[facility] the event this information is protected by the Federal Confidentiality of Alcohol and Drug Abuse Patient Records regulations: The Federal rules restrict any use of the information to criminally investigate or prosecute any alcohol or drug abuse patient.[facility] the event this information is protected by the Federal Confidentiality of Alcohol and Drug Abuse Patient Records regulations: The Federal rules restrict any use of the information to criminally investigate or prosecute any alcohol or drug abuse patient.[facility] the event this information is protected by the Federal Confidentiality of Alcohol and Drug Abuse Patient Records regulations: The Federal rules restrict any use of the information to criminally investigate or prosecute any alcohol or drug abuse patient.[facility] the event this information is protected by the Federal Confidentiality of Alcohol and Drug Abuse Patient Records regulations: The Federal rules restrict any use of the information to criminally investigate or prosecute any alcohol or drug abuse patient.[facility] the event this information is protected by the Federal Confidentiality of Alcohol and Drug Abuse Patient Records regulations: The Federal rules restrict any use of the information to criminally investigate or prosecute any alcohol or drug abuse patient.[facility] the event this information is protected by the Federal Confidentiality of Alcohol and Drug Abuse Patient Records regulations: The Federal rules restrict any use of the information to criminally investigate or prosecute any alcohol or drug abuse patient.[facility] HospitalIn the event this information is protected by the Federal Confidentiality of Alcohol and Drug Abuse Patient Records regulations: The Federal rules restrict any use of the information to criminally investigate or prosecute any alcohol or drug abuse patient.[facility] HospitalIn the event this information is protected by the Federal Confidentiality of Alcohol and Drug Abuse Patient Records regulations: The Federal rules restrict any use of the information to criminally investigate or prosecute any alcohol or drug abuse patient.[facility] HospitalIn the event this information is protected by the Federal Confidentiality of Alcohol and Drug Abuse Patient Records regulations: The Federal rules restrict any use of the information to criminally investigate or prosecute any alcohol or drug abuse patient.[facility] HospitalIn the event this information is protected by the Federal Confidentiality of Alcohol and Drug Abuse Patient Records regulations: The Federal rules restrict any use of the information to criminally investigate or prosecute any alcohol or drug abuse patient.[facility] HospitalIn the event this information is protected by the Federal Confidentiality of Alcohol and Drug Abuse Patient Records regulations: The Federal rules restrict any use of the information to criminally investigate or prosecute any alcohol or drug abuse patient.[facility] Reason for Visit (unrecogniz ed section [...] HEAD/BRAIN W/O CONTRAST MATERIAL Cuong Trujillo MD [address] [place] [address] Ct Imaging Referral ID Status Reason Start Date Expiration Date V isits Requested Visits Authorized [id number] Closed Auto-Generate d Referral 12/05/2021 01/03/2022 1 [...] HIGH MDM 60-74 MINUTES Cuong Trujillo MD [address] [place] [address] Referral ID Status Reason Start Date Expiration Date V isits Requested Visits Authorized [id number] Closed PCP Requested Referral Auto-Generated Referral 06/08/2022 [...] Date Comments Population Health Navigation Outreach [facility]/16[facility]2023 [facility] Reason Onset Date Comments Refill Request 12/29/2023 Reason Onset Date Comments Refill Request 01/09/2024 Reason Onset Date Comments Population Health Navigation Outreach 02/02/2024 Heather [facility] Care Teams (unrecognized sec tion and content) 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 Relationship Specialty Start Date End Date Cuong Trujillo MD [address] [place], [place] [id number] PCP - General Family Practice 12/29/15 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 Instructor Relationship Specialty Start Date End Date Cuong Trujillo MD [address] [place] [address] PCP - General Family Practice 12/29/15 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 Instructor Relationship Specialty Start Date End Date Cuong Trujillo MD [address] [facility] [address] PCP - General Family Practice 12/29/15 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 Instructor Relationship Specialty Start Date End Date Cuong Trujillo MD [address] [facility] [address] PCP - General Family Practice 12/29/15 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 Instructor Relationship Specialty Start Date End Date Cuong Trujillo MD [address] [facility] [address] PCP - General Family Practice 12/29/15 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 Instructor Relationship Specialty Start Date End Date Cuong Trujillo MD [address] [facility] [address] PCP - General Family Practice 12/29/15 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 Instructor Relationship Specialty Start Date End Date Cuong Trujillo MD [address] [place] [address] PCP - General Family Practice 12/29/15 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 Instructor Relationship Specialty Start Date End Date Cuong Trujillo MD [address] [place] [address] PCP - General Family Practice 12/29/15 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 Instructor Relationship Specialty Start Date End Date Cuong Trujillo MD [address] [place] [address] PCP - General Family Practice 12/29/15 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 Instructor Relationship Specialty Start Date End Date Cuong Trujillo MD [address] [place] [address] PCP - General Family Practice 12/29/15 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 Instructor Relationship Specialty Start Date End Date Cuong Trujillo MD [address] [place] [address] PCP - General Family Practice 12/29/15 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 Instructor Relationship Specialty Start Date End Date Cuong Trujillo MD [address] [place] [address] PCP - General Family Practice 12/29/15 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 Instructor Relationship Specialty Start Date End Date Cuong Trujillo MD [address] [place] [address] PCP - General Family Practice 12/29/15 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 Instructor Relationship Specialty Start Date End Date Cuong Trujillo MD [address] [place] [address] PCP - General Family Practice 12/29/15 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 Instructor Relationship Specialty Start Date End Date Cuong Trujillo MD [address] [facility] [address] PCP - General Family Medicine 12/29/15 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 Instructor Relationship Specialty Start Date End Date Cuong Trujillo MD [address] [place] [address] PCP - General Family Medicine 12/29/15 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 Instructor Relationship Specialty Start Date End Date Cuong Trujillo MD [address] [place] [address] PCP - General Family Medicine 12/29/15 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 Instructor Relationship Specialty Start Date End Date Cuong Trujillo MD [address] [place] [address] PCP - General Family Medicine 12/29/15 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 Instructor Relationship Specialty Start Date End Date Cuong Trujillo MD [address] [place] [address] PCP - General Family Medicine 12/29/15 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 Instructor Relationship Specialty Start Date End Date Cuong Trujillo MD [address] [place] [address] PCP - General Family Medicine 12/29/15 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 Instructor Relationship Specialty Start Date End Date Cuong Trujillo MD [address] [place] [address] PCP - General Family Medicine 12/29/15 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 Instructor Relationship Specialty Start Date End Date Cuong Trujillo MD [address] [place] [address] PCP - General Family Medicine 12/29/15 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 Instructor Relationship Specialty Start Date End Date Cuong Trujillo MD [address] [place] [address] PCP - General Family Medicine 12/29/15 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 Instructor Relationship Specialty Start Date End Date Cuong Trujillo MD [address] [place] [address] PCP - General Family Medicine 12/29/15 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 Instructor Relationship Specialty Start Date End Date Cuong Trujillo MD [address] [place] [address] PCP - General Family Medicine 12/29/15 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 Instructor Relationship Specialty Start Date End Date Cuong Trujillo MD [address] [place] [address] PCP - General Family Medicine 12/29/15 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 Instructor Relationship Specialty Start Date End Date Cuong Trujillo MD [address] [place], [place] [address] PCP - General Family Medicine 12/29/15 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 Instructor Relationship Specialty Start Date End Date Cuong Trujillo MD [address] [place], [place] [address] PCP - General Family Medicine 12/29/15 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 Instructor Relationship Specialty Start Date End Date Cuong Trujillo MD [address] [place], [place] [id number] PCP - General Family Medicine 12/29/15 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 Instructor Relationship Specialty Start Date End Date Cuong Trujillo MD [address] [place], [place] [address] PCP - General Family [facility] 12/29/15 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 Instructor Relationship Specialty Start Date End Date Cuong Trujillo MD [address] [place], [place] [id number] PCP - General [facility] 12/29/15 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 Instructor Relationship Specialty Start Date End Date Cuong Trujillo MD [address] [place], [place] [address] PCP - General Family [facility] 12/29/15 FOR RECORDS PERTAINING TO PATIENTS [...] BE BASED ON THE PRIMARY CLINICAL RECORDS. [facility] [employer] [facility]. provides no warranty or guarantee of the accuracy or completeness of information in this document.
[2024-02-06 13:54] LABS: Bedside Glucose 331 mg/dL (74-106)
--- NOTE | 2024-02-06 14:17 | HP.PCM.HOS_ITS ---
HPI - General General Date of Admission: 02/06/24 Date of Service: 02/06/24 Chief Complaint: Nausea and vomiting HPI Narrative FREEMAN MOCTEZUMA, is a 58 F who presents with nausea and vomiting. Patient is a type II diabetic who this past was having nausea, vomiting and diarrhea. Also was having fevers up into the 102.7 Fahrenheit. Not eating much. Some the symptoms got better but just was feeling very rundown. She is a type II diabetic and blood sugars are noted to be in the 200s. Today which is not feeling any better and sugars were noted to be 400s and was sent to the emergency room. Her blood sugar was noted to be 432 as well as a sodium 127 and a potassium of 3. Initially was planned to be started on a insulin drip but she did receive IV fluids as well as potassium replacement in the emergency room. I did have them order an ABG and that came back showing that she was not in acidosis with pH is 7.44. She did receive 20 units of NovoLog in the emergency room and blood sugar went down to 331. [facility] Medical History Hypotension Post-menopausal Back pain Injury of head and neck Dietary restriction Diabetes Former smoker Asthma Chronic ulcer of right foot due to diabetes mellitus Non-pressure 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 Infectious tenosynovitis Cellulitis of right lower limb MRSA bacteremia Acute osteomyelitis of left foot Diabetes mellitus with diabetic polyneuropathy Charcot's joint of right foot Narcolepsy Sleep disorder Allergies Hypothyroidism History of MRSA infection Weakness COVID-19 DKA, type 2 Malnutrition 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 Home Medications ?Medication ?Instructions ?Recorded ?Last Taken ?Type armodafinil 150 mg tablet 150 mg PO BID to stay awake 09/25/16 Unknown History liothyronine 25 mcg tablet 25 mcg PO DAILY thyroid 09/25/16 Unknown History montelukast 10 mg tablet 10 mg PO QHS allergy 09/25/16 Unknown History (Singulair) baclofen 10 mg tablet 10 mg PO TID PRN muscle relax 01/01/21 Unknown History fluticasone propionate 50 1 spray intranasal BID PRN 01/01/21 Unknown History mcg/actuation nasal allergies spray,suspension ibuprofen 200 mg tablet (Advil) 400 mg PO BID 05/21/21 Unknown History levocetirizine 5 mg tablet 1 tab PO DAILY 11/22/21 Unknown History levothyroxine 125 mcg tablet 100 mcg PO DAILY 11/22/21 Unknown History sitagliptin phosphate 50 4 tab PO DAILY 11/22/21 Unknown History mg-metformin 500 mg tablet (Janumet) hydrocodone-acetaminophen 5-325mg 1 tab PO Q6H PRN pain 7 days #28 10/16/22 Unknown Rx 5mg-325mg tabs Allergy/AdvReac Type Severity Reaction Status Date / Time clindamycin Allergy Hives Verified 02/06/24 10:27 pregabalin (From Lyrica) Allergy Swelling Verified 02/06/24 10:27 bee venom protein (honey bee) AdvReac Anaphylaxis Verified 02/06/24 10:27 vancomycin AdvReac Other Verified 02/06/24 10:27 Family History Father CVA (cerebral vascular accident) Clotting disorder Seizures Mother Osteoarthritis Other Charcot's joint of right foot Diabetes Heart disease Hypertension 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 alcohol intake: current alcohol intake frequency: holidays/special occasions only substance use type: does not use ROS ROS Narrative No sore throat or rhinitis. Some congestion particular in her ears. Does have a chronic wound to her right foot that has been healing after surgery related with her Charcot foot. Patient has partially torn tendon in her left foot where she has to wear a brace. She also wears a walking boot on her right lower extremity. All review of systems were negative except as mentioned above in the history of present illness and the other review of systems. Vital Signs Vital Signs Vital Signs: 02/06/24 10:24 02/06/24 10:02/06/24 10:41 Temperature 37.9 C H 36.9 C Temperature Source Oral Oral Pulse Rate 108 H 102 H Pulse Rate [Lying] Pulse Rate [Sitting (for 1 minute prior to obtaining)] Pulse Rate [Standing (for 1 minute prior to obtaining)] Respiratory Rate 16 16 Respiratory Effort Normal Respiratory Pattern Normal Blood Pressure 131/68 H 131/73 H Blood Pressure [Lying] Blood Pressure [Sitting (for 1 minute prior to obtaining)] Blood Pressure [Standing (for 1 minute prior to obtaining)] Blood Pressure Mean 89 92 Blood Pressure Mean [Lying] Blood Pressure Mean [Sitting (for 1 minute prior to obtaining)] Blood Pressure Mean [Standing (for 1 minute prior to obtaining)] Pulse Ox 94 95 Oxygen Delivery Method Room Air Room Air 02/06/24 11:20 02/06/24 11:27 02/06/24 12:00 Temperature 36.9 C 37.2 C Temperature Source Oral Oral Pulse Rate 101 H 94 Pulse Rate [Lying] 98 Pulse Rate [Sitting (for 1 minute prior to obtaining)] 104 H Pulse Rate [Standing (for 1 minute prior to obtaining)] 105 H Respiratory Rate 16 16 Respiratory Effort Respiratory Pattern Blood Pressure 119/72 126/65 H Blood Pressure [Lying] 129/70 H Blood Pressure [Sitting (for 1 minute prior to obtaining)] 130/79 H Blood Pressure [Standing (for 1 minute prior to obtaining)] 133/77 H Blood Pressure Mean 87 85 Blood Pressure Mean [Lying] 89 Blood Pressure Mean [Sitting (for 1 minute prior to obtaining)] 96 Blood Pressure Mean [Standing (for 1 minute prior to obtaining)] 95 Pulse Ox 95 96 Oxygen Delivery Method Room Air Room Air 02/06/24 12:23 02/06/24 12:51 02/06/24 13:00 Temperature 37.2 C 36.9 C Temperature Source Oral Pulse Rate 92 94 84 Pulse Rate [Lying] Pulse Rate [Sitting (for 1 minute prior to obtaining)] Pulse Rate [Standing (for 1 minute prior to obtaining)] Respiratory Rate 16 18 16 Respiratory Effort Respiratory Pattern Blood Pressure 125/65 H 114/64 113/65 Blood Pressure [Lying] Blood Pressure [Sitting (for 1 minute prior to obtaining)] Blood Pressure [Standing (for 1 minute prior to obtaining)] Blood Pressure Mean 85 80 81 Blood Pressure Mean [Lying] Blood Pressure Mean [Sitting (for 1 minute prior to obtaining)] Blood Pressure Mean [Standing (for 1 minute prior to obtaining)] Pulse Ox 96 96 93 Oxygen Delivery Method Room Air Room Air 02/06/24 14:00 02/06/24 14:00 Temperature 36.9 C Temperature Source Oral Pulse Rate 79 79 Pulse Rate [Lying] Pulse Rate [Sitting (for 1 minute prior to obtaining)] Pulse Rate [Standing (for 1 minute prior to obtaining)] Respiratory Rate 23 H 23 H Respiratory Effort Respiratory Pattern Blood Pressure 114/60 114/60 Blood Pressure [Lying] Blood Pressure [Sitting (for 1 minute prior to obtaining)] Blood Pressure [Standing (for 1 minute prior to obtaining)] Blood Pressure Mean 78 78 Blood Pressure Mean [Lying] Blood Pressure Mean [Sitting (for 1 minute prior to obtaining)] Blood Pressure Mean [Standing (for 1 minute prior to obtaining)] Pulse Ox 95 95 Oxygen Delivery Method Room Air Room Air Weight Weight: 91.5 kg Body Mass Index (BMI) 30.7 Physical Exam Const alert and no apparent distress HEENT normocephalic and head/scalp atraumatic Eyes PERRL and EOMs intact bilaterally Resp normal respiratory effort, no retractions, no use of accessory muscles and clear to auscultation bilaterally Cardio regular rate, regular rhythm, S1 normal heart sound and S2 normal heart sound GI normal to inspection, nondistended, normoactive bowel sounds, soft to palpation, non-tender and non-distended Extremity normal to inspection and full ROM Extremity Narrative: Patient has a superficial wound on her right anterior foot without any surrounding erythema or discharge. Neuro moves all extremities Sensorium / Orientation: awake and alert Psych affect normal Results Lab / Micro Data 02/06/24 11:29 02/06/24 11:29 Labs: Laboratory Results - last 24 hr 02/06/24 11:29: WBC 13.0 H, RBC 4.65, Hgb 14.2, Hct 41.9, MCV 90.1, MCH 30.5, MCHC 33.9, RDW Std Deviation 41.8, RDW Coeff of Amos 12.7, Plt Count 177, MPV 11.5, Immature Gran % (Auto) 0.800, Neut % (Auto) 85.1 H, Lymph % (Auto) 7.1 L, Miner % (Auto) 6.1, Eos % (Auto) 0.1, Baso % (Auto) 0.8, Absolute Neuts (auto) 11.1 H, Absolute Lymphs (auto) 0.92, Nucleated RBC % 0.2, Sodium 127 L, P otassium 3.0 L, Chloride 89 L, Carbon Dioxide 20.0 L, Anion Gap 18 H, BUN 22 H, Creatinine 0.85, Estim Creat Clear Calc 84.31, Est GFR (MDRD) Af Amer 88, Est GFR (MDRD) Non-Af 72, BUN/Creatinine Ratio 25.8 H, Glucose 432 H, Lactic Acid 1.1, Calcium 9.2, Total Bilirubin 1.30 H, AST 28, ALT 66 H, Alkaline Phosphatase 96, Total Protein 7.3, Albumin 2.5 L, Globulin 4.8 H, Albumin/Globulin Ratio 0.5 L, Lipase 28, Acetone Level SMALL H 02/06/24 11:46: Urine Color Yellow, Urine Clarity Cloudy, Urine pH 6.0, Ur Specific [place] 1.010, Urine Protein 100 H, Urine Glucose (UA) 1000 H, Urine Ketones 150 A*, Urine Occult Blood 150 H, Urine Nitrite Negative, Urine Bilirubin Negative, Urine Urobilinogen 1 H, Ur Leukocyte Esterase 500 H, Urine RBC 0-5 SEEN, Urine WBC >100 SEEN, Ur Squamous Epith Cells 0-5 SEEN, Urine Bacteria 1+, Urine Mucus 0 SEEN 02/06/24 13:34: POC Glucose 331 H Micro: Microbiology 02/06/24 11:29 Mucosa - Nose SARS-CoV-2, Influenza & RSV (PCR) - Final ABG Data ABG results: ABG 02/06/24 13:02 Specimen Type ART Sample Site L Radial pH 7.44 Bicarbonate Actual 18.6 L Total CO2 19 Base Excess -6 L O2 Saturation 96 O2 % 21.0 ABG pCO2 27.2 L ABG pO2 78 Janusz Test Positive O2 Delivery Device Room Air Vent Mode Not entered Imaging Radiology Impression Brain CT 02/06/24 11:14 IMPRESSION: Chronic involutional changes of the brain. Electronically Signed: Tone Hall MD at 12:55 EDT , Chest X-Ray 02/06/24 12:00 IMPRESSION: Degenerative changes, as described above. No demonstrated acute cardiopulmonary process. Electronically Signed: Tone Hall MD at 12:59 EDT Reading Location ID and State: [address] [place] [address] , Service support , Assessment & Plan Assessment/Plan (1) Diabetes mellitus type 2, uncontrolled: PLAN: Patient had a positive anion gap but her ABG showed normal pH of 7.44. I think she prior has some component of starvation ketosis rather than DKA which may explain the positive anion gap and low carbon dioxide. Patient will continue with glucose checks with sliding scale insulin and also give her a dose of insulin glargine 10 units. Will check an A1c. Hold her sitagliptin/metformin (2) Hyponatremia: PLAN: Likely pseudohyponatremia due to hyperglycemia but there also may be a component of dehydration. Will continue with fluids and monitor. (3) Hypokalemia: PLAN: By secondary to diarrhea and vomiting Will recheck this afternoon and continue replace if necessary. PLAN: Plan Chronic conditions * Charcot foot on the right. Patient to wear a walking boot when up on that foot. Patient does have a superficial wound that is just slow to heal surgical wound. No evidence of any infection. Will consult wound care for further recommendations * Hypothyroidism: Patient on liothyronine and levothyroxine. VTE prophylaxis with enoxaparin CODE STATUS: Addressed with the patient. Patient wishes to be full code. Discussed with patient's daughter at bedside. Charges/Coding Visit Charges Inpatient E&M: 26503 Init Hosp L3
[2024-02-06 15:49] LABS: Anion Gap 11 (5-15); BUN 19 mg/dL (7-18); BUN/Creat Ratio 22.7 RATIO (10-20); Calcium,Total 8.6 mg/dL (8.5-10.1); Chloride 99 mmol/L (98-107); Creatinine, Serum 0.84 mg/dL (0.55-1.02); EST Glomerular Filtration Rate 74 mL/min (>60); Est Glom Filt Rate - Afr Amer 89 mL/min (>60); Glucose 262 mg/dL (74-106); Potassium 2.6 mmol/L (3.5-5.1); Sodium Level 132 mmol/L (136-145)
[2024-02-06] MEDS: Insulin Glargine-YFGN 100 UNIT/ML Pen 10 UNIT SC (16:42)
[2024-02-06] MEDS: Potassium Chloride 10mEq/100mL 10 MEQ/100 ML IV.SOLN. 100 MEQ IV BOLUS ×4 (16:43→20:15)
[2024-02-06] MEDS: Insulin Lispro 100 UNIT/ML INSULN.PEN SC ×2 (16:43→20:40)
[2024-02-06] MEDS: Potassium Chloride 40 MEQ in 0.45% Normal Saline 1,000 ML 150 MEQ IV (16:46)
[2024-02-06 17:10] LABS: Bedside Glucose 223 mg/dL (74-106)
[2024-02-06] MEDS: Ibuprofen 400 MG Tablet PO (20:20)
[2024-02-06] MEDS: Montelukast 10 MG Tablet PO (20:20)
[2024-02-07 01:49] LABS: Bedside Glucose 285 mg/dL (74-106)
[2024-02-07 02:00] VITALS: BP 103/50; PULSE 72; RESP 16; TEMP 36.7; O2SAT 95
[2024-02-07 02:46] VITALS: BP 103/50; PULSE 72; RESP 16; TEMP 36.7; O2SAT 95
[2024-02-07] MEDS: Potassium Chloride 40 MEQ in 0.45% Normal Saline 1,000 ML 150 MEQ IV ×3 (05:06→18:07)
[2024-02-07] MEDS: Liothyronine 5 MCG Tablet 25 MCG PO (05:07)
[2024-02-07] MEDS: Levothyroxine 100 MCG Tablet PO (05:08)
[2024-02-07] MEDS: Insulin Lispro 100 UNIT/ML INSULN.PEN SC ×4 (06:19→22:09)
[2024-02-07 06:34] VITALS: BMI 31.1
[2024-02-07 06:45] LABS: Bedside Glucose 262 mg/dL (74-106)
[2024-02-07 07:11] LABS: Absolute Lymphocyte Count 1.32 X10^3/uL (0.83-4.51); Basophil# 0.04 X10^3/uL; Basophil% 0.3 % (0-1); Eosinophil# 0.07 X10^3/uL; Eosinophils% 0.5 % (0-5); Hematocrit 38.2 % (37-47); Hemoglobin 12.5 g/dL (12.0-15.0); Lymphocyte # 1.32 X10^3/ul (0.83-4.51); Lymphocyte % 9.6 % (19-41); Mean Corp Hgb Conc 32.7 g/dL (32-36); Mean Corpuscular Volume 91.8 fL (81-99); Monocyte# 0.92 X10^3/uL; Monocyte% 6.7 % (0-10); NRBC Flagged by Analyzer 0 % (0-5); Neutrophil # 10.99 X10^3/uL (2.7-7.7); POSITIVE MORPHOLOGY YES; Platelet Count 144 K/mm3 (150-450); RBC Distribution Width CV 13.2 % (11.6-14.6); RBC Distribution Width SD 44.5 fl (35.1-43.9); Red Blood Count 4.16 M/mm3 (4.2-5.4); White Blood Count 13.7 K/mm3 (4.4-11.0)
[2024-02-07 07:41] LABS: Differential Indicated SCAN CRITERIA MET
[2024-02-07 07:52] LABS: Anion Gap 10 (5-15); BUN 20 mg/dL (7-18); Chloride 102 mmol/L (98-107); Creatinine, Serum 0.67 mg/dL (0.55-1.02); EST Glomerular Filtration Rate 96 mL/min (>60); Est Glom Filt Rate - Afr Amer 116 mL/min (>60); Estimated Creatinine Clearance 107.65 ml/min; Glucose 297 mg/dL (74-106); Sodium Level 132 mmol/L (136-145)
[2024-02-07 08:06] LABS: Hemoglobin A1c 11.2 % (3.8-5.6)
[2024-02-07 08:45] VITALS: BP 127/62; PULSE 97; RESP 18; TEMP 36.3; O2SAT 97
[2024-02-07 09:15] LABS: Differential Comment SCANNED; Dohle Bodies 2+; Platelet Estimate ADEQUATE (ADEQ); Red Cell Morphology NORM C+C NORMAL (NORM C&C); Vacuolated Cells 1+
[2024-02-07 10:34] VITALS: BP 103/50; PULSE 72; RESP 16; TEMP 36.7; O2SAT 95
[2024-02-07] MEDS: Enoxaparin 40 MG/0.4 ML Syringe SC (10:56)
[2024-02-07] MEDS: Loratadine 10 MG Tablet PO (10:57)
[2024-02-07] MEDS: Ibuprofen 400 MG Tablet PO ×2 (10:57→20:20)
[2024-02-07] MEDS: Insulin Glargine-YFGN 100 UNIT/ML Pen 10 UNIT SC (10:57)
[2024-02-07 11:53] LABS: Bedside Glucose 333 mg/dL (74-106)
--- NOTE | 2024-02-07 13:29 | CASEMGMT ---
BERTA TRUJILLO Assessment Face to Face with patient for initial transition planning/care coordination assessment. BERTA TRUJILLO introduced self and role at [facility], pt voices understanding. Pt is A&Ox4 and is resting comfortably in bed and is calm. Pt daughter at bedside. Care providers, pharmacy, and demographics verified. Admitting dx: Hyponatremia JOANAE Strata: 2 PCP: Cuong Barros Specialists: Joshua (Pod), Dr. Ford (Endocrinology) Preferred Pharmacy: [facility] Insurance: Jin Prescription Benefit: Pt states that she has some. Pt states that she has also used services such as [facility] in the past. Pt is concerned about the cost of her Janumet Rx. Pt states that her insurance only brings this medication down to 300$ or so per month. Pt states that [facility] brings the med down to 500$. Pt states that she is having a hard time affording this. Pt made aware that SW will follow up with the pt to provide information on [employer] for potential financial assistance. LNOK: Erika Falk ([facility]) Living Arrangements: Pt lives with her daughter in a single story home with 5 steps to enter ADLs/IADLs: Ind Transportation: Self, daughter DME: [employer] and supplies. shower chair. Raised TS. Grab bars. FWW. HHC/SNF: Hx with [facility] and [facility]. SNF Hx at [facility] (States had a poor experience) and [facility] Wound: Pt states that she manages her wound per herself and her daughter (Who is an WEB SPECIALIST) and denies concerns about this. Pt denies the need for the [facility]. Pt?s goal: Home Plan: Anticipate DC home once medically ready. 6-Click score is 19. PT and OT evaluations are pending. At this time, the pt states that she feels safe discharging home with her daughter once she is medically ready. CM and SW to follow Rx costs and therapy in regard to safe DC planning. Report given to [employer] SUPERVISOR CM. Hadley Chung RN, CM
[2024-02-07 14:45] VITALS: BP 114/65; PULSE 96; RESP 18; TEMP 36.6; O2SAT 96
--- NOTE | 2024-02-07 14:49 | PN_ITS ---
Subjective Subjective Patient seen and examined. Her daughter was by her bedside. She complained of feeling weak and tired and also complained of some diarrhea which appeared to be improving. She denied any fever or chills. Patient and daughter were concerned about why her blood sugars seem to be elevated. Patient says she is on extended release metformin. It seems she was put on insulin by her business objects analyst; however she says the insulin would cost her $300 [id number] with the insurance and she could not afford this. She was subsequently put on Januvia with metformin but says the Januvia is also too expensive. He has been offered coupon for Ozempic and other medications but has declined them because she says she will not be able to afford the subsequent out of cost maravilla. Review of systems is otherwise negative. Objective Data Objective Data Vital Signs: Vital Signs Temp Pulse Resp BP Pulse Ox O2 Del Method 98.1 F 72 16 103/50 L 95 Room Air 02/07/24 10:34 02/07/24 10:34 02/07/24 10:34 02/07/24 10:34 02/07/24 10:34 02/07/24 10:48 Oxygen Delivery Method Room Air Weight: 204 lb 6.4 oz Body Mass Index (BMI) 31.1 Intake & Output: Intake and Output for Last 24 Hours 02/05/24 02/06/24 02/07/24 23:59 23:59 23:59 Intake Total 1994.0 / 5.0 2395 / 2395 Output Total 200 / 200 Balance 1994.0 / 2115.0 2195 / 2195 Lab / Micro Data 02/07/24 06:38 02/07/24 06:38 Labs: Laboratory Results - last 24 hr 02/06/24 15:15: Sodium 132 L, Potassium 2.6 L*, Chloride 99, Carbon Dioxide 22.0, Anion Gap 11, BUN 19 H, Creatinine 0.84, Estim Creat Clear Calc 84.40, Est GFR (MDRD) Af Amer 89, Est GFR (MDRD) Non-Af 74, BUN/Creatinine Ratio 22.7 H, G lucose 262 H, Calcium 8.6 02/06/24 16:41: POC Glucose 223 H 02/06/24 20:39: POC Glucose 285 H 02/07/24 06:17: POC Glucose 262 H 02/07/24 06:38: WBC 13.7 H, RBC 4.16 L, Hgb 12.5, Hct 38.2, MCV 91.8, MCH 30.0, MCHC 32.7, RDW Std Deviation 44.5 H, RDW Coeff of Amos 13.2, Plt Count 144 L, MPV 11.0, Immature Gran % (Auto) 2.900 H, Neut % (Auto) 80.0 H, Lymph % (Auto) 9.6 L , [place] % (Auto) 6.7, Eos % (Auto) 0.5, Baso % (Auto) 0.3, Absolute Neuts (auto) 11.0 H, Absolute Lymphs (auto) 1.32, Nucleated RBC % 0, Differential Comment SCANNED, Toxic Vacuolation 1+, Dohle Bodies 2+, Platelet Estimate ADEQUATE, RBC Morphology NORM C+C, Sodium 132 L, Potassium 4.0, Chloride 102, Carbon Dioxide 20.0 L, Anion Gap 10, BUN 20 H, Creatinine 0.67, Estim Creat Clear Calc 107.65, Est GFR (MDRD) Af Amer 116, Est GFR (MDRD) Non-Af 96, BUN/Creatinine Ratio 30.0 H, Glucose 297 H, Hemoglobin A1c 11.2 H, Calcium 9.0 02/07/24 11:30: POC Glucose 333 H Micro: Microbiology 02/06/24 11:46 Urine, Clean Catch Urine Culture - Preliminary Staphylococcus aureus 02/06/24 11:29 Mucosa - Nose SARS-CoV-2, Influenza & RSV (PCR) - Final Physical Exam Const alert and oriented x3 Constitutional Narrative: frail General Appearance: cooperative HEENT normocephalic, head/scalp atraumatic and moist oral mucous membranes Eyes PERRL and EOMs intact bilaterally Neck no lymphadenopathy, supple and no JVD Lymph Lymphatic: no lymphadenopathy noted and no lymphedema noted Resp normal respiratory effort, normal air movement and clear to auscultation bilaterally Cardio regular rate, regular rhythm, S1 normal heart sound, S2 normal heart sound and no murmurs GI normal to inspection, nondistended, normoactive bowel sounds, soft to palpation, non-tender and non-distended Extremity normal capillary refill, no clubbing, cyanosis or edema and no calf tenderness General Extremity: no tenderness to palpation of joints or extremities Skin General Skin Exam: no breakdown Neuro CN's II-XII intact bilaterally, no focal motor deficits, no sensory deficits noted and deep tendon reflexes 2+ bilaterally Motor Exam: strength 5/5 throughout and general weakness Psych thought process normal and cooperative Appearance: appropriate Assessment & Plan Assessment/Plan (1) Hypokalemia: (2) Hyponatremia: (3) Diabetes mellitus type 2, uncontrolled: PLAN: Plan #intractable nausea and vomiting * resolving. likely due to her uncontrolled diabetes mellitus. Blood glucose was elevated. She had an elevated anion gap which has now arresolved * A1C is elevated at 11.8 * on sitagliptin and metformin. She has not been taking her sitagliptin because she cannot afford it. She is now on Metformin extended release 1000mg bid. * ISS> Accuchecks ACHS' * case management and social work contacted to help patient with her insurance coverage for insulin. * #Poorly controlled diabetes mellitus: * as above * A1C is 11.2. Unable to afford her insulin and Januvia lower prescribed. Currently on metformin extended release 1000 mg twice daily. Case management on board as stated above. #UTI: Urine cultures growing more than 100,000 staff aureus. Urine grew 1+ bacteria. Start on p.o. Bactrim. #ANion gap metabolic acidosis * likely due to starvation ketosis and mild DKA * now resolved. Anion gap is down to 10. * #Hyponatremia * was likely a pseudohyponatremia due to hyperglycemia. Resolving. Sodium is 132 today. Will monitor * * #Hypokalemia: K was 2.6. Now up to 4 after replacement. Niles monitor #Right Charcot foot * wears a walking foot when ambulating. * wound care on board * #Hypothyroidism: on synthroid DVT prophylaxis: lovenox Code status: full code Charges/Coding Visit Charges Inpatient E&M: 10947 Subs Hosp L2
--- NOTE | 2024-02-07 14:53 | CASEMGMT ---
ABDOUL was informed patient has troubles with paying for Diabetes related medications. ABDOUL met with patient. Introduced self and role at [facility]. ABDOUL provided patient with information on [employer] and a list of other prescription assistance programs. ABDOUL told patient whenever she is up for discharge ABDOUL paring machine operator CM can check on cost of d/c meds before she leaves [facility]. Elena Soriano MSW JOHN
--- NOTE | 2024-02-07 15:17 | WOUNDNOTE ---
wound photo: right foot
--- NOTE | 2024-02-07 15:19 | WOUNDNOTE ---
wound photo: right foot
[2024-02-07] MEDS: metFORMIN (XR) 500 MG Tablet 1000 MG PO (17:22)
[2024-02-07] MEDS: Smz/Tmp Ds Tablet 1 TABLET PO (17:23)
[2024-02-07 20:14] VITALS: BP 127/66; PULSE 115; RESP 16; TEMP 36.9; O2SAT 98
[2024-02-07] MEDS: Montelukast 10 MG Tablet PO (20:20)
[2024-02-07] MEDS: Baclofen 10 MG Tablet PO (20:20)
[2024-02-07 21:53] LABS: Bedside Glucose 262 mg/dL (74-106)
[2024-02-07 22:54] LABS: Bedside Glucose 274 mg/dL (74-106)
[2024-02-08] MEDS: Potassium Chloride 40 MEQ in 0.45% Normal Saline 1,000 ML 150 MEQ IV ×3 (00:55→17:52)
[2024-02-08 03:15] VITALS: BP 116/64; PULSE 85; RESP 16; TEMP 36.6; O2SAT 98
[2024-02-08] MEDS: Baclofen 10 MG Tablet PO ×3 (03:58→23:04)
[2024-02-08] MEDS: Levothyroxine 100 MCG Tablet PO (05:30)
[2024-02-08] MEDS: Liothyronine 5 MCG Tablet 25 MCG PO (05:30)
[2024-02-08 05:31] VITALS: BMI 30.7
[2024-02-08] MEDS: Insulin Lispro 100 UNIT/ML INSULN.PEN SC ×4 (05:56→21:59)
[2024-02-08] MEDS: Acetaminophen 325 MG Tablet 650 MG PO (05:56)
[2024-02-08 06:25] LABS: Bedside Glucose 209 mg/dL (74-106)
[2024-02-08 07:07] LABS: Hemoglobin 11.9 g/dL (12.0-15.0); Mean Corp Hgb Conc 33.1 g/dL (32-36); Mean Corpuscular Hgb 30.6 pg (27.0-32.0); Mean Corpuscular Volume 92.5 fL (81-99); Mean Platelet Vol. 11.2 fl (6.2-12.0); POSITIVE COUNT YES; POSITIVE MORPHOLOGY YES; Platelet Count 190 K/mm3 (150-450); RBC Distribution Width CV 13.3 % (11.6-14.6); RBC Distribution Width SD 45.6 fl (35.1-43.9); Red Blood Count 3.89 M/mm3 (4.2-5.4); White Blood Count 17.4 K/mm3 (4.4-11.0)
[2024-02-08 07:13] LABS: Differential Indicated MANUAL DIFF
[2024-02-08 07:55] LABS: Anion Gap 7 (5-15); BUN 16 mg/dL (7-18); Calcium,Total 8.8 mg/dL (8.5-10.1); Chloride 105 mmol/L (98-107); Creatinine, Serum 0.64 mg/dL (0.55-1.02); EST Glomerular Filtration Rate 101 mL/min (>60); Est Glom Filt Rate - Afr Amer 122 mL/min (>60); Estimated Creatinine Clearance 112.27 ml/min; Glucose 253 mg/dL (74-106); Potassium 4.1 mmol/L (3.5-5.1); Sodium Level 131 mmol/L (136-145)
[2024-02-08 08:09] VITALS: BP 109/59; PULSE 84; RESP 18; TEMP 36.3; O2SAT 98
[2024-02-08] MEDS: metFORMIN (XR) 500 MG Tablet 1000 MG PO ×2 (08:17→15:59)
[2024-02-08] MEDS: Ibuprofen 400 MG Tablet PO ×2 (08:18→21:58)
[2024-02-08] MEDS: Smz/Tmp Ds Tablet 1 TABLET PO ×2 (08:18→19:52)
[2024-02-08] MEDS: Loratadine 10 MG Tablet PO (08:18)
[2024-02-08] MEDS: Enoxaparin 40 MG/0.4 ML Syringe SC (08:18)
[2024-02-08] MEDS: Insulin Glargine-YFGN 100 UNIT/ML Pen 10 UNIT SC (08:19)
[2024-02-08 11:45] LABS: Bedside Glucose 295 mg/dL (74-106)
[2024-02-08 11:48] LABS: Lymphocyte 11 % (19-41); Metamyelocyte 1 % (0-1); Monocyte 3 % (0-10); Neutrophil-Band 2 % (0-5); Neutrophil-Segmented 77 % (47-70); Plasma Cell 5 %; Promyelocyte 1 % (0-0); Total Cells Counted 100 (MANUAL DIFF)
--- NOTE | 2024-02-08 11:48 | WOUNDNOTE ---
wound photo: right foot
--- NOTE | 2024-02-08 11:48 | WOUNDNOTE ---
wound photo: right foot
[2024-02-08 11:49] LABS: Absolute Neutrophil Count 13.7 X10^3/uL (2.0-7.7); Platelet Estimate ADEQUATE (ADEQ); Red Cell Morphology NORM C+C NORMAL (NORM C&C)
--- NOTE | 2024-02-08 12:19 | PN_ITS ---
Subjective Subjective Patient seen and examined. She complained of not being able to sleep. She states her chronic back pain has been acting up and she has been having back spasms. Review of systems otherwise negative. WBC has trended up to 17 today. Objective Data Objective Data Vital Signs: Vital Signs Temp Pulse Resp BP Pulse Ox O2 Del Method 97.4 F L 84 18 109/59 L 98 Room Air 02/08/24 08:09 02/08/24 08:09 02/08/24 08:09 02/08/24 08:09 02/08/24 08:09 02/08/24 08:09 Oxygen Delivery Method Room Air Weight: 202 lb 13.204 oz Body Mass Index (BMI) 30.7 Intake & Output: Intake and Output for Last 24 Hours 02/06/24 02/07/24 02/08/24 23:59 23:59 23:59 Intake Total 1994.0 / 5.0 3565 / 3565 2040.0 / 2040.0 Output Total 200 / 200 Balance 1994.0 / 5.0 3365 / 3365 2040.0 / 2040.0 Lab / Micro Data 02/08/24 06:18 02/08/24 06:18 Labs: Laboratory Results - last 24 hr 02/07/24 17:20: POC Glucose 262 H 02/07/24 22:07: POC Glucose 274 H 02/08/24 05:54: POC Glucose 209 H 02/08/24 06:18: WBC 17.4 H, RBC 3.89 L, Hgb 11.9 L, Hct 36.0 L, MCV 92.5, MCH 30.6, MCHC 33.1, RDW Std Deviation 45.6 H, RDW Coeff of Amos 13.3, Plt Count 190, MPV 11.2, Neut % (Auto) Not Reportable, Absolute Neuts (auto) 13.7 H, Absolute Lymphs (auto) 1.90, Total Counted 100, Neutrophils % (Manual) 77 H, Band Neutrophils % 2, Lymphocytes % (Manual) 11 L, Monocytes % (Manual) 3, Metamyelocytes % 1, Promyelocytes % 1 H, Plasma Cell % (Manual) 5, Diff Path Review September, Platelet Estimate ADEQUATE, RBC Morphology NORM C+C, Sodium 131 L, Potassium 4.1, Chloride 105, Carbon Dioxide 19.0 L, Anion Gap 7, BUN 16, Creatinine 0.64, Estim Creat Clear Calc 112.27, Est GFR (MDRD) Af Amer 122, Est GFR (MDRD) Non-Af 101, BUN/Creatinine Ratio 25.0 H, Glucose 253 H, Calcium 8.8 02/08/24 11:24: POC Glucose 295 H Micro: Microbiology 02/06/24 11:46 Urine, Clean Catch Urine Culture - Final Meth. resistant Staph. aureus 02/06/24 11:29 Mucosa - Nose SARS-CoV-2, Influenza & RSV (PCR) - Final Physical Exam Const alert, oriented x3 and no apparent distress Constitutional Narrative: frail General Appearance: cooperative HEENT normocephalic, head/scalp atraumatic and moist oral mucous membranes Eyes PERRL and EOMs intact bilaterally Neck no lymphadenopathy, supple and no JVD Lymph Lymphatic: no lymphadenopathy noted and no lymphedema noted Resp normal respiratory effort, normal air movement, no retractions, no use of accessory muscles and clear to auscultation bilaterally Cardio regular rate, regular rhythm, S1 normal heart sound, S2 normal heart sound and no murmurs GI normal to inspection, nondistended, normoactive bowel sounds, soft to palpation, non-tender and non-distended Extremity normal capillary refill Extremity Narrative: Right foot wrapped in bandage General Extremity: no tenderness to palpation of joints or extremities Skin General Skin Exam: no breakdown Neuro CN's II-XII intact bilaterally, moves all extremities, no focal motor deficits, no sensory deficits noted and deep tendon reflexes 2+ bilaterally Sensorium / Orientation: awake and alert Motor Exam: strength 5/5 throughout and general weakness Psych thought process normal, cooperative and affect normal Appearance: appropriate Assessment & Plan Assessment/Plan (1) Hypokalemia: (2) Hyponatremia: (3) Diabetes mellitus type 2, uncontrolled: PLAN: Plan #intractable nausea and vomiting * resolving. likely due to her uncontrolled diabetes mellitus. Blood glucose was elevated. She had an elevated anion gap which has now arresolved * A1C is elevated at 11.8 * on sitagliptin and metformin. She has not been taking her sitagliptin because she cannot afford it. She is now on Metformin extended release 1000mg bid. * ISS> Accuchecks ACHS' * Per case management, patient can get Lantus through insurance for $35 per month. He has only been discussed with patient and he says he will be able to afford this. Will therefore give a prescription for Lantus on discharge. * case management and social work contacted to help patient with her insurance coverage for insulin. * #Poorly controlled diabetes mellitus: * as above * A1C is 11.2. * Unable to afford her insulin and Januvia as * prescribed. Currently on metformin extended release 1000 mg twice daily. Case management on board as stated above. * Will discharge on subcu Lantus as insurance will cover for $35 a month. Case management as noted above. #UTI: * Urine cultures growing MRSA. On p.o. Bactrim. WBC trended up to 17. Wound care, her foot was looking worse today so podiatry consulted. This may be the cause of the WBC going up. Patient is allergic to vancomycin. * Will continue on Bactrim for now pending blood cultures. * #ANion gap metabolic acidosis * likely due to starvation ketosis and mild DKA * now resolved. * #Hyponatremia * was likely a pseudohyponatremia due to hyperglycemia. Resolving. Sodium is 131 today. Will monitor * * #Hypokalemia: Resolved. #Right Charcot foot * wears a walking foot when ambulating. * wound care on board. Wound care, foot looks erythematous today. Podiatry consulted. Await recs. * #Hypothyroidism: on synthroid DVT prophylaxis: lovenox Code status: full code Charges/Coding Visit Charges Inpatient E&M: 49370 Subs Hosp L2
[2024-02-08 15:55] VITALS: BP 115/63; PULSE 92; RESP 18; TEMP 35.9; O2SAT 98
[2024-02-08 15:55] LABS: M R Staph aureus DNA By PCR POSITIVE (Negative); Probe Check PASS; Staph aureus DNA By PCR POSITIVE (Negative)
[2024-02-08 16:37] LABS: Bedside Glucose 283 mg/dL (74-106)
[2024-02-08] MEDS: Morphine 2 MG/ML Syringe IV (19:31)
[2024-02-08 21:57] VITALS: BP 126/69; PULSE 107; RESP 17; TEMP 36.2; O2SAT 96
[2024-02-08] MEDS: Montelukast 10 MG Tablet PO (21:58)
[2024-02-08 22:46] LABS: Bedside Glucose 298 mg/dL (74-106)
[2024-02-08] MEDS: oxyCODONE 5 MG Tablet PO (23:04)
[2024-02-09] MEDS: Potassium Chloride 40 MEQ in 0.45% Normal Saline 1,000 ML 150 MEQ IV ×3 (01:30→21:40)
[2024-02-09 04:00] VITALS: BP 111/61; PULSE 80; RESP 17; TEMP 36.5; O2SAT 97
[2024-02-09 04:40] VITALS: BMI 30.7
[2024-02-09] MEDS: Liothyronine 5 MCG Tablet 12.5 MCG PO (06:26)
[2024-02-09] MEDS: Levothyroxine 112 MCG Tablet PO (06:26)
[2024-02-09] MEDS: Insulin Lispro 100 UNIT/ML INSULN.PEN SC ×4 (06:27→21:36)
[2024-02-09 06:44] LABS: Hemoglobin 11.9 g/dL (12.0-15.0); Mean Corpuscular Hgb 31.8 pg (27.0-32.0); Mean Corpuscular Volume 93.6 fL (81-99); Mean Platelet Vol. 11.1 fl (6.2-12.0); POSITIVE COUNT YES; POSITIVE MORPHOLOGY YES; Platelet Count 257 K/mm3 (150-450); RBC Distribution Width CV 13.7 % (11.6-14.6); RBC Distribution Width SD 46.9 fl (35.1-43.9); Red Blood Count 3.74 M/mm3 (4.2-5.4); White Blood Count 22.3 K/mm3 (4.4-11.0)
[2024-02-09 06:47] LABS: Differential Indicated MANUAL DIFF
[2024-02-09 06:51] LABS: Bedside Glucose 223 mg/dL (74-106)
[2024-02-09 07:07] LABS: Anion Gap 5 (5-15); BUN 15 mg/dL (7-18); BUN/Creat Ratio 19.6 RATIO (10-20); Chloride 105 mmol/L (98-107); Creatinine, Serum 0.76 mg/dL (0.55-1.02); EST Glomerular Filtration Rate 82 mL/min (>60); Est Glom Filt Rate - Afr Amer 100 mL/min (>60); Estimated Creatinine Clearance 94.49 ml/min; Glucose 286 mg/dL (74-106); Potassium 5.1 mmol/L (3.5-5.1); Sodium Level 132 mmol/L (136-145)
--- NOTE | 2024-02-09 07:58 | PCM.CONS.GEN ---
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 Distal to this at the dorsal aspect of the foot there is new acute erythema and palpable fluctuance with small area of weakened/thin skin with purulent drainage expressible from the site. The palpable fluctuance extends medially overlying the navicular. There is increased warmth about the site but no pain to palpation. No previous ulceration noted at this region. Patient previously had been healing well at last visit in office last week. No signs of infection at that time. WBC 22.3; Hgb 11.9; Hct 35.0; Lactic Acid 1.1 Blood cultures demonstrate G + cocci Wound culture of new abscess region demonstrates Staph aureus protein A PCR positive; MRSA PCR positive. Dressing changed to right foot area consisting of Betadine and Adaptic, dry sterile dressing. Medicine team following for medical management, they are greatly appreciated Infectious disease consulted for antibiotic management, their input is appreciated Wound care nurse following for assisting in dressing changes. She is to remain nonweightbearing to the right lower extremity Discussed need for surgical intervention with the patient at bedside this morning. Patient understands that this is a limb salvage procedure and not elective. Patient understands that she is at high risk of amputation of the lower extremity secondary to infection and Charcot foot deformity. Patient wishes to proceed forward with the limb salvage procedure. Discussed the procedure in detail with patient and discussed risks and potential complications. Discussed the risk/complications include but are not limited to the following: Pain, continued pain, complex regional pain syndrome, neuritis/numbness, progression of Charcot foot deformity, infection, dehiscence, delayed healing/nonhealing, need for further surgical procedures, difficulty wearing shoe gear, difficulty with ambulation, contracture, poor cosmetic result, scarring bleeding, blood clot, allergic reaction, stroke, heart attack, loss of limb, loss of function, loss of life. She is understanding of these and was able to repeat these back. Patient will be n.p.o. overnight. Patient to sign surgical consent for procedure. Plan for OR tomorrow 12:15pm for I&D of Right foot, Debridement of ulceration Right Leg with application of Advanced wound care product. Jason Lewis Jr. D.P.M. [facility] [phone] HPI Consult Data Date of Consult: 02/09/24 HPI Narrative Reason for Consultation: Right foot infection HPI Narrative: FREEMAN MOCTEZUMA, is a 58 F who presents to [facility] 02/06/2024 dizziness previous 4 to 5 days, generalized abdominal aching, fever, chills, nausea, vomiting, diarrhea. Patient states that her insurance would not cover insulin or Januvia and thus she was started on extended release metformin with titrating dosage upward. Patient states that she did perform this however sick and was unable to eat or keep the medication down. At time of admission she was found to be hyponatremic, hypokalemic, with elevated blood sugars in the 400s. Lactic acid was normal. Was found to have possible bacteria on urine culture and was started on IV Rocephin and admitted. During admission she was started on IV fluids given insulin. However due to weakened state she did develop some redness at the dorsal foot below the level of the superficial ulceration on the anterior aspect of the right lower extremity on 02/07/2024. Redness worsened with abscess formation into Wednesday afternoon cultures were obtained and podiatry was consulted for further evaluation and possible surgical intervention. [facility] Medical History Hypotension Post-menopausal Back pain Injury of head and neck Dietary restriction Diabetes Former smoker Asthma Chronic ulcer of right foot due to diabetes mellitus Non-pressure 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 Infectious tenosynovitis Cellulitis of right lower limb MRSA bacteremia Acute osteomyelitis of left foot Diabetes mellitus with diabetic polyneuropathy Charcot's joint of right foot Narcolepsy Sleep disorder Allergies Hypothyroidism History of MRSA infection Weakness COVID-19 DKA, type 2 Malnutrition 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 Home Medications ?Medication ?Instructions ?Recorded ?Last Taken ?Type armodafinil 150 mg tablet 150 mg PO BID to stay awake 09/25/16 Unknown History liothyronine 25 mcg tablet 25 mcg PO DAILY thyroid 09/25/16 Unknown History montelukast 10 mg tablet 10 mg PO QHS allergy 09/25/16 Unknown History (Singulair) baclofen 10 mg tablet 10 mg PO TID PRN muscle relax 01/01/21 Unknown History fluticasone propionate 50 1 spray intranasal BID PRN 01/01/21 Unknown History mcg/actuation nasal allergies spray,suspension ibuprofen 200 mg tablet (Advil) 400 mg PO BID pain 05/21/21 Unknown History levocetirizine 5 mg tablet 1 tab PO DAILY PRN Allergies 11/22/21 Unknown History levothyroxine 125 mcg tablet 100 mcg PO DAILY thyroid 11/22/21 Unknown History sitagliptin phosphate 50 4 tab PO DAILY diabetes 11/22/21 Unknown History mg-metformin 500 mg tablet (Janumet) hydrocodone-acetaminophen 5-325mg 1 tab PO Q6H PRN pain 7 days #28 10/16/22 Unknown Rx 5mg-325mg tabs metformin 500 mg tablet,extended 1,000 mg PO BID diabetes 02/06/24 Unknown History release 24 hr levothyroxine 112 mcg tablet 112 mcg PO DAILY thyroi 02/09/24 Unknown History Allergy/AdvReac Type Severity Reaction Status Date / Time clindamycin Allergy Hives Verified 02/06/24 10:27 pregabalin (From Lyrica) Allergy Swelling Verified 02/06/24 10:27 bee venom protein (honey bee) AdvReac Anaphylaxis Verified 02/06/24 10:27 vancomycin AdvReac Other Verified 02/06/24 10:27 Family History Father CVA (cerebral vascular accident) Clotting disorder Seizures Mother Osteoarthritis Other Charcot's joint of right foot Diabetes Heart disease Hypertension 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 alcohol intake: current alcohol intake frequency: holidays/special occasions only substance use type: does not use ROS Constitutional Constitutional: Reports chills, fatigue and fever(s) Eyes Eyes: Denies blurry vision, change in vision or diplopia ENT HEENT: Denies rhinorrhea or sore throat Cardiovascular Cardiovascular: Denies chest pain, claudication or palpitations Respiratory/Chest Respiratory/Chest: Denies cough, dyspnea or wheezing Gastrointestinal Gastrointestinal: Reports abdominal pain, diarrhea, nausea and vomiting; Denies constipation Genitourinary Genitourinary: Denies dysuria, urinary frequency or urinary urgency Musculoskeletal Musculoskeletal: Denies joint pain, joint stiffness or joint swelling Integumentary Integumentary: Denies jaundice, pruritus or rash Neurologic Neurologic: Reports dizziness; Denies numbness or seizures Psychiatric Psychiatric: Denies anxiety or depression Endocrine Endocrinology: Denies cold intolerance, heat intolerance or polydipsia Hematologic/Lymphatic Hematologic/Lymphatic: Denies easy bleeding or easy bruising Allergic/Immunologic Allergic/Immunologic: Denies wheezing Physical Exam Const alert and oriented x3 Constitutional Narrative: Generally ill-appearing. General Appearance: cooperative HEENT normocephalic Eyes General Eye: normal appearance of both eyes Neck General: normal visual inspection Lymph Lymphatic: no lymphadenopathy noted and no lymphedema noted Resp normal respiratory effort Cardio regular rate and regular rhythm Extremity normal capillary refill and no calf tenderness Extremity Narrative: Right Lower Extremity: Vascular: DP and PT pulses palpable. CFT < 4 seconds to digits. Increased temperature overlying dorsal foot and medial foot. Hair growth diminished to digits. Neurologic: Absent protective sensation secondary to Diabetic Peripheral Polyneuropathy. Musculoskeletal: Muscle strength 5 of 5 age-appropriate. No pain to palpation about the ulcerative site or dorsal foot. Charcot foot deformity noted. Dermatological: Superficial ulceration anterior aspect right lower extremity. Distal to this at the dorsal aspect of the foot there is new acute erythema and palpable fluctuance with small area of weakened/thin skin with purulent drainage expressible from the site. The palpable fluctuance extends medially overlying the navicular. There is increased warmth about the site but no pain to palpation. No previous ulceration noted at this region. Skin skin turgor normal and no jaundice Neuro moves all extremities Lab / Micro Data 02/09/24 05:51 02/09/24 05:51 Labs: Laboratory Results - last 24 hr 02/08/24 06:18: Absolute Neuts (auto) 13.7 H, Absolute Lymphs (auto) 1.90, Total Counted 100, Neutrophils % (Manual) 77 H, Band Neutrophils % 2, Lymphocytes % (Manual) 11 L, Monocytes % (Manual) 3, Metamyelocytes % 1, Promyelocytes % 1 H, Plasma Cell % (Manual) 5, Diff Path Review September, Platelet Estimate ADEQUATE, RBC Morphology NORM C+C 02/08/24 11:00: S.aureus Protein A PCR POSITIVE H, MRSA (PCR) POSITIVE H 02/08/24 11:24: POC Glucose 295 H 02/08/24 15:58: POC Glucose 283 H 02/08/24 21:47: POC Glucose 298 H 02/09/24 05:51: WBC 22.3 H, RBC 3.74 L, Hgb 11.9 L, Hct 35.0 L, MCV 93.6, MCH 31.8, MCHC 34.0, RDW Std Deviation 46.9 H, RDW Coeff of Amos 13.7, Plt Count 257, MPV 11.1, Neut % (Auto) Not Reportable, Sodium 132 L, Potassium 5.1, Chloride 105, Carbon Dioxide 22.0, Anion Gap 5, BUN 15, Creatinine 0.76, Estim Creat Clear Calc 94.49, Est GFR (MDRD) Af Amer 100, Est GFR (MDRD) Non-Af 82, BUN/Creatinine Ratio 19.6, Glucose 286 H, Calcium 9.0 02/09/24 06:25: POC Glucose 223 H Micro: Microbiology 02/08/24 08:46 Blood Culture (Wb) - Right Hand Blood Culture - Preliminary 02/08/24 11:00 Wound - Right Foot Gram Stain - Final 02/06/24 11:46 Urine, Clean Catch Urine Culture - Final Meth. resistant Staph. aureus
[2024-02-09 09:20] VITALS: BP 122/66; PULSE 94; RESP 18; TEMP 36.8; O2SAT 99
[2024-02-09] MEDS: metFORMIN (XR) 500 MG Tablet 1000 MG PO ×2 (09:24→17:14)
[2024-02-09] MEDS: Ibuprofen 400 MG Tablet PO ×2 (09:24→21:16)
[2024-02-09] MEDS: Loratadine 10 MG Tablet PO (09:24)
[2024-02-09] MEDS: Enoxaparin 40 MG/0.4 ML Syringe SC (09:25)
[2024-02-09] MEDS: Insulin Glargine-YFGN 100 UNIT/ML Pen 10 UNIT SC (09:25)
[2024-02-09 09:52] LABS: Atypical Lymphocyte 1+ %; Eosinophil 3 % (0-5); Lymphocyte 9 % (19-41); Metamyelocyte 4 % (0-1); Monocyte 6 % (0-10); Myelocyte 1 % (0-0); Neutrophil-Band 4 % (0-5); Neutrophil-Segmented 68 % (47-70); Plasma Cell 3 %; Platelet Estimate ADEQUATE (ADEQ); Promyelocyte 2 % (0-0); Red Cell Morphology NORM C+C NORMAL (NORM C&C); Total Cells Counted 100 (MANUAL DIFF)
[2024-02-09] MEDS: DAPTOMYCIN IV (11:00)
[2024-02-09] MEDS: NORMAL SALINE 0.9% IV (11:00)
--- NOTE | 2024-02-09 11:00 | CASEMGMT ---
BERTA TRUJILLO received voicemail from Nohemi at [facility] regarding patient. BERTA TRUJILLO returned called. Nohemi states that [facility] is not in-network and inquired if patient would be transferred to in-network facility, [facility] affiliates. Nohemi states that she is also available to assist with discharge planning. Nohemi's number is [phone]. BERTA TRUJILLO in to update patient, daughter on speaker phone. BERTA TRUJILLO updated patient regarding [facility] not in-network with her insurance. Patient declines being transferred at this time as she wants to continue to receive care at [facility] and Dr. Lewis. Patient had no further questions or concerns at this time. BERTA TRUJILLO updated Nohemi at [facility]. BERTA TRUJILLO udpated CM director and UM team. CM will continue to follow this patient and plan for a safe discharge.
--- NOTE | 2024-02-09 11:01 | PN_ITS ---
Subjective Subjective Patient seen and examined. She still complains of back pain. She denies any fever or chills or any other symptoms. Blood cultures are growing gram-positive cocci likely MRSA as to PCR screen was positive for MRSA. Review of systems otherwise negative. WBC has trended up further to 22.3 today. Objective Data Objective Data Vital Signs: Vital Signs Temp Pulse Resp BP Pulse Ox O2 Del Method 98.3 F 94 18 122/66 H 99 Room Air 02/09/24 09:20 02/09/24 09:20 02/09/24 09:20 02/09/24 09:20 02/09/24 09:20 02/09/24 09:20 Oxygen Delivery Method Room Air Weight: 202 lb 9.677 oz Body Mass Index (BMI) 30.7 Intake & Output: Intake and Output for Last 24 Hours 02/07/24 02/08/24 02/09/24 23:59 23:59 23:59 Intake Total 3565 / 3565 3360.0 / 3360.0 2039 Output Total 200 / 200 Balance 3365 / 3365 3360.0 / 3360.0 2039 Lab / Micro Data 02/09/24 05:51 02/09/24 05:51 Labs: Laboratory Results - last 24 hr 02/08/24 06:18: Absolute Neuts (auto) 13.7 H, Absolute Lymphs (auto) 1.90, Total Counted 100, Neutrophils % (Manual) 77 H, Band Neutrophils % 2, Lymphocytes % (Manual) 11 L, Monocytes % (Manual) 3, Metamyelocytes % 1, Promyelocytes % 1 H, Plasma Cell % (Manual) 5, Diff Path Review September, Platelet Estimate ADEQUATE, RBC Morphology NORM C+C 02/08/24 11:00: S.aureus Protein A PCR POSITIVE H, MRSA (PCR) POSITIVE H 02/08/24 11:24: POC Glucose 295 H 02/08/24 15:58: POC Glucose 283 H 02/08/24 21:47: POC Glucose 298 H 02/09/24 05:51: WBC 22.3 H, RBC 3.74 L, Hgb 11.9 L, Hct 35.0 L, MCV 93.6, MCH 31.8, MCHC 34.0, RDW Std Deviation 46.9 H, RDW Coeff of Amos 13.7, Plt Count 257, MPV 11.1, Neut % (Auto) Not Reportable, Absolute Neuts (auto) 16.0 H, Absolute Lymphs (auto) 2.00, Total Counted 100, Neutrophils % (Manual) 68, Band Neutrophils % 4, Lymphocytes % (Manual) 9 L, Monocytes % (Manual) 6, Eosinophils % (Manual) 3, Metamyelocytes % 4 H, Myelocytes % 1 H, Promyelocytes % 2 H, Plasma Cell % (Manual) 3, Diff Path Review May foll, Atypical Lymphocytes 1+, Platelet Estimate ADEQUATE, RBC Morphology NORM C+C, Sodium 132 L, Potassium 5.1, Chloride 105, Carbon Dioxide 22.0, Anion Gap 5, BUN 15, Creatinine 0.76, Estim Creat Clear Calc 94.49, Est GFR (MDRD) Af Amer 100, Est GFR (MDRD) Non-Af 82, BUN/Creatinine Ratio 19.6, Glucose 286 H, Calcium 9.0 02/09/24 06:25: POC Glucose 223 H Micro: Microbiology 02/08/24 08:46 Blood Culture (Wb) - Right Hand Blood Culture - Preliminary 02/08/24 11:00 Wound - Right Foot Gram Stain - Final 02/06/24 11:46 Urine, Clean Catch Urine Culture - Final Meth. resistant Staph. aureus 02/06/24 11:29 Mucosa - Nose SARS-CoV-2, Influenza & RSV (PCR) - Final Physical Exam Const alert, oriented x3 and no apparent distress Constitutional Narrative: frail General Appearance: cooperative HEENT normocephalic, head/scalp atraumatic and moist oral mucous membranes Eyes PERRL and EOMs intact bilaterally Neck no lymphadenopathy, supple and no JVD Lymph Lymphatic: no lymphadenopathy noted and no lymphedema noted Resp normal respiratory effort, normal air movement, no retractions, no use of accessory muscles and clear to auscultation bilaterally Cardio regular rate, regular rhythm, S1 normal heart sound, S2 normal heart sound and no murmurs GI normal to inspection, nondistended, normoactive bowel sounds, soft to palpation, non-tender and non-distended Extremity normal to inspection, full ROM and normal capillary refill Extremity Narrative: Right foot wrapped in bandage General Extremity: no tenderness to palpation of joints or extremities Skin General Skin Exam: no breakdown Neuro CN's II-XII intact bilaterally, moves all extremities, no focal motor deficits, no sensory deficits noted and deep tendon reflexes 2+ bilaterally Sensorium / Orientation: awake and alert Motor Exam: strength 5/5 throughout and general weakness Psych thought process normal, cooperative and affect normal Appearance: appropriate Assessment & Plan Assessment/Plan (1) Hypokalemia: (2) Hyponatremia: (3) Diabetes mellitus type 2, uncontrolled: PLAN: Plan #intractable nausea and vomiting * resolving. likely due to her uncontrolled diabetes mellitus. Blood glucose was elevated. She had an elevated anion gap which has now arresolved * A1C is elevated at 11.8 * on sitagliptin and metformin. She has not been taking her sitagliptin because she cannot afford it. She is now on Metformin extended release 1000mg bid. * ISS> Accshane AYONS' * Per case management, patient can get Lantus through insurance for $35 per month. He has only been discussed with patient and he says he will be able to afford this. Will therefore give a prescription for Lantus on discharge. * case management and social work contacted to help patient with her insurance coverage for insulin. * currently on lantus 10 units daily. * #Poorly controlled diabetes mellitus: * as above * A1C is 11.2. * Unable to afford her insulin and Januvia as prescribed. * Currently on metformin extended release 1000 mg twice daily. Case management on board as stated above. * Will discharge on subcu Lantus as insurance will cover for $35 a month. Case management as noted above. #Gram positive bacteremia * wbc is up to 22 today. She was on bactrim for MRSA UTI. She is allergic to vancomycin, so per discussion with ID today, patient started on IV daptomycin. * blood cultures growing gram positive cocci. MRSA PCR is positive. * #UTI: * Urine cultures growing MRSA. * now on IV daptomycin due to positive blood cultueres * #Right foot cellulitis in setting of right Charcot foot. * wbc has trended up to 22 today * for I& D today. * podiatry on board * on IV daptomycin as above. * #ANion gap metabolic acidosis * likely due to starvation ketosis and mild DKA * now resolved. * #Hyponatremia * was likely a pseudohyponatremia due to hyperglycemia. Resolving. Sodium is 132 today. Will monitor * * #Hypokalemia: Resolved. #Hypothyroidism: on synthroid DVT prophylaxis: lovenox Code status: full code Charges/Coding Visit Charges Inpatient E&M: 44607 Subs Hosp L3
[2024-02-09] MEDS: Morphine 2 MG/ML Syringe IV ×2 (11:09→17:22)
[2024-02-09] MEDS: 0.9% Saline Lock 10 ML Syringe IV ×4 (11:10→23:49)
[2024-02-09 11:34] LABS: Bedside Glucose 327 mg/dL (74-106)
--- NOTE | 2024-02-09 12:56 | ECHOD_ITS ---
Reason For Study: Murmur Procedure This was a 2D Doppler, Color Flow transthoracic echocardiogram. Exam performed portable in patient room. Left Ventricle Normal size and thickness. Inferior and septal hypokinesis. Estimated LVEF 45%. Normal diastology. Right Ventricle Normal right ventricle. Atria The left and right atria are normal. Mitral Valve Normal mitral valve. Tricuspid Valve Mild tricuspid valve insufficiency. Normal pulmonary artery pressure. Aortic Valve Trisinus/trileaflet aortic valve. Pulmonic Valve The pulmonic valve is not well visualized. Great Vessels Mildly dilated ascending aorta. Pericardium/Pleural No pericardial effusion. MMode/2D Measurements & Calculations LVIDd: 4.7 cm IVSd: 0.89 cm LVOT diam: 2.3 cm LVIDs: 3.7 cm LVPWd: 0.82 cm LVOT area: 4.3 cm2 RVDd: 2.9 cm FS: 22.8 % Ao root diam: 3.5 cm asc Aorta Diam: 3.8 cm LAV(MOD-bp): 40.4 ml LA dimension: 3.5 cm LAV(MOD-bp) Indexed: 19.9 ml/m2 LAV(MOD-sp2): 48.8 ml LAV(MOD-sp4): 33.2 ml SV(MOD-sp4): 44.2 ml SV(sp4-el): 45.3 ml LVAd ap4: 31.1 cm2 LVLd ap4: 9.1 cm EDV(MOD-sp4): 88.8 ml EDV(sp4-el): 90.1 ml LVAs ap4: 19.9 cm2 LVLs ap4: 7.5 cm ESV(MOD-sp4): 44.6 ml ESV(sp4-el): 44.8 ml EF(MOD-sp4): 49.8 % EF(sp4-el): 50.3 % Ao sinus diam: 3.[address] Junction: 3.0 cm LA A4 area: 14.4 cm2 TAPSE: 2.2 cm RA A4 area: 14.3 cm2 Time Measurements MV dec time: 0.17 sec Doppler Measurements & Calculations MV E max max: 85.2 cm/sec Lat Peak E' Max: 15.7 cm/sec Med Peak E' Max: 11.8 cm/sec MV A max max: 61.4 cm/sec E/E' lat: 5.4 E/E' med: 7.2 MV E/A: 1.4 MV V2 max: 117.8 cm/sec MV P1/2t max max: 117.8 cm/sec Ao V2 max: 133.7 cm/sec MV max P.6 mmHg MV P1/2t: 69.9 msec Ao max P.2 mmHg MV V2 mean: 63.9 cm/sec MV dec slope: 494.0 cm/sec2 Ao V2 mean: 94.8 cm/sec MV mean P.0 mmHg Ao mean P.0 mmHg MV V2 VTI: 23.5 cm MVA(P1/2t): 3.1 cm2 Ao V2 VTI: 23.0 cm MVA(VTI): 3.8 cm2 AV (velocity ratio): 0.91 JOSH(I,D): 3.9 cm2 JOSH(V,D): 3.4 cm2 LV V1 max: 106.1 cm/sec SV(LVOT): 88.7 ml PA V2 max: 92.2 cm/sec LV V1 max P.5 mmHg PA max PG (full): 1.2 mmHg LV V1 mean P.8 mmHg LV V1 mean: 78.5 cm/sec LV V1 VTI: 20.8 cm TR max max: 217.1 cm/sec TR max P.9 mmHg ECHO/Echo Complete Interpretation Summary Inferior and septal hypokinesis. Estimated LVEF 45%. Normal diastology. Mildly dilated ascending aorta. Ordering Physician: Mehul Rubio Performed By: Edgard Sandoval and Student
--- NOTE | 2024-02-09 12:56 | MRI_ITS ---
STUDY: MRI LUMBAR SPINE WITHOUT CONTRAST REASON FOR EXAM: Female, 58 years old. spine tenderness, MRSA bacteremia, osteo, back pain, hx of surgery 10yrs ago TECHNIQUE: Standardized fat and water weighted pulse sequences were obtained in the sagittal and axial planes. COMPARISON: Lumbar spine radiograph July 31, 2012. FINDINGS: Slight anterior wedging T11, T12 and L1 without bone marrow edema or retropulsion. Heterogeneous marrow. T12-L1: Normal endplates. Normal disc height, hydration and morphology. Normal bilateral facet joints. Normal central canal and bilateral lateral recesses. Normal bilateral intervertebral neural foramina. Normal lumbar lordosis. Mild scoliosis. Normal conus medullaris that terminates at the T12-L1 level. L1-2: Small posterior disc marginal osteophyte. Central canal and neural foramina patent. Disc space narrowing. L2-3: Circumferential disc marginal osteophyte. Disc space narrowing. Hypertrophic facets. Moderate narrowing of the neural foramina bilaterally. Central thecal sac patent. L3-4: Central posterior disc marginal osteophyte. Severe narrowing of the neural foramina bilaterally. Central canal patent.. L4-5: Disc space narrowing. Moderate narrowing of the neural foramina bilaterally. Laminectomy. Central canal patent. L5-S1: Moderate central posterior disc marginal osteophyte hypertrophic facet disease. Severe narrowing of the neural foramen on the left. Right neural foramina and Central canal patent. Laminectomy. Normal visualized sacral ala. Normal visualized paraspinous soft tissue structures. MRI/Spine Lumbar (Routine) IMPRESSION: Scoliosis, degenerative disc disease and spondylosis. Laminectomies L4-5 and L5-S1. Multilevel neural foraminal narrowing as noted above. No evidence of discitis or osteomyelitis. Electronically Signed: Cristopher Zamarripa MD at 22:44 EDT ,
[2024-02-09] MEDS: Ampicillin/Sulbactam 3 GM in 0.9% Normal Saline (100mL MB+) 100 ML IV ×3 (14:37→23:49)
[2024-02-09 15:20] VITALS: BP 107/61; PULSE 90; RESP 18; TEMP 36.5; O2SAT 97
--- NOTE | 2024-02-09 15:37 | PCM.CONS.GEN ---
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 Possible lumbar osteo/discitis, will order MRI. Will check echo. Stop bactrim, start dapto and unasyn. Podiatry to see. 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 Had been feeling ok, followed up with Dr. Paez a month. Now several days severe n/v, fatigue, chills, not feeling well. R foot worsening redness and pain. Came to ED, admitted, started on bactrim for (+) ucx. Ucx showed MRSA, now bcx (+). C/o severe lower back pain. No other focal joint pain. Full ROS performed and neg except as noted above. REPLACED BY [facility] Medical History Hypotension Post-menopausal Back pain Injury of head and neck Dietary restriction Diabetes Former smoker Asthma Chronic ulcer of right foot due to diabetes mellitus Non-pressure 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 Infectious tenosynovitis Cellulitis of right lower limb MRSA bacteremia Acute osteomyelitis of left foot Diabetes mellitus with diabetic polyneuropathy Charcot's joint of right foot Narcolepsy Sleep disorder Allergies Hypothyroidism History of MRSA infection Weakness COVID-19 DKA, type 2 Malnutrition 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 Home Medications ?Medication ?Instructions ?Recorded ?Last Taken ?Type armodafinil 150 mg tablet 150 mg PO BID to stay awake 09/25/16 Unknown History liothyronine 25 mcg tablet 25 mcg PO DAILY thyroid 09/25/16 Unknown History montelukast 10 mg tablet 10 mg PO QHS allergy 09/25/16 Unknown History (Singulair) baclofen 10 mg tablet 10 mg PO TID PRN muscle relax 01/01/21 Unknown History fluticasone propionate 50 1 spray intranasal BID PRN 01/01/21 Unknown History mcg/actuation nasal allergies spray,suspension ibuprofen 200 mg tablet (Advil) 400 mg PO BID pain 05/21/21 Unknown History levocetirizine 5 mg tablet 1 tab PO DAILY PRN Allergies 11/22/21 Unknown History levothyroxine 125 mcg tablet 100 mcg PO DAILY thyroid 11/22/21 Unknown History sitagliptin phosphate 50 4 tab PO DAILY diabetes 11/22/21 Unknown History mg-metformin 500 mg tablet (Janumet) hydrocodone-acetaminophen 5-325mg 1 tab PO Q6H PRN pain 7 days #28 10/16/22 Unknown Rx 5mg-325mg tabs metformin 500 mg tablet,extended 1,000 mg PO BID diabetes 02/06/24 Unknown History release 24 hr levothyroxine 112 mcg tablet 112 mcg PO DAILY thyroi 02/09/24 Unknown History Allergy/AdvReac Type Severity Reaction Status Date / Time clindamycin Allergy Hives Verified 02/06/24 10:27 pregabalin (From Lyrica) Allergy Swelling Verified 02/06/24 10:27 bee venom protein (honey bee) AdvReac Anaphylaxis Verified 02/06/24 10:27 vancomycin AdvReac Other Verified 02/06/24 10:27 Family History Father CVA (cerebral vascular accident) Clotting disorder Seizures Mother Osteoarthritis Other Charcot's joint of right foot Diabetes Heart disease Hypertension 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 alcohol intake: current alcohol intake frequency: holidays/special occasions only substance use type: does not use Physical Exam Const alert, oriented x3 and no apparent distress General Appearance: cooperative HEENT normocephalic and head/scalp atraumatic Eyes PERRL and EOMs intact bilaterally Neck supple and No nodes Resp normal air movement and clear to auscultation bilaterally Cardio regular rate and regular rhythm GI soft to palpation, non-tender and non-distended Extremity General Extremity: edema Skin Skin Narrative: R foot redness, tenderness Neuro CN's II-XII intact bilaterally Lab / Micro Data Attestation: I reviewed the patient's lab results. 02/09/24 05:51 02/09/24 05:51 Labs: Laboratory Results - last 24 hr 02/08/24 11:00: S.aureus Protein A PCR POSITIVE H, MRSA (PCR) POSITIVE H 02/08/24 15:58: POC Glucose 283 H 02/08/24 21:47: POC Glucose 298 H 02/09/24 05:51: WBC 22.3 H, RBC 3.74 L, Hgb 11.9 L, Hct 35.0 L, MCV 93.6, MCH 31.8, MCHC 34.0, RDW Std Deviation 46.9 H, RDW Coeff of Amos 13.7, Plt Count 257, MPV 11.1, Neut % (Auto) Not Reportable, Absolute Neuts (auto) 16.0 H, Absolute Lymphs (auto) 2.00, Total Counted 100, Neutrophils % (Manual) 68, Band Neutrophils % 4, Lymphocytes % (Manual) 9 L, Monocytes % (Manual) 6, Eosinophils % (Manual) 3, Metamyelocytes % 4 H, Myelocytes % 1 H, Promyelocytes % 2 H, Plasma Cell % (Manual) 3, Diff Path Review May foll, Atypical Lymphocytes 1+, Platelet Estimate ADEQUATE, RBC Morphology NORM C+C, Sodium 132 L, Potassium 5.1, Chloride 105, Carbon Dioxide 22.0, Anion Gap 5, BUN 15, Creatinine 0.76, Estim Creat Clear Calc 94.49, Est GFR (MDRD) Af Amer 100, Est GFR (MDRD) Non-Af 82, BUN/Creatinine Ratio 19.6, Glucose 286 H, Calcium 9.0 02/09/24 06:25: POC Glucose 223 H 02/09/24 11:08: POC Glucose 327 H Micro: Microbiology 02/08/24 08:46 Blood Culture (Wb) - Right Hand Blood Culture - Preliminary Staphylococcus aureus 02/08/24 11:00 Wound - Right Foot Gram Stain - Final 02/08/24 11:00 Wound - Right Foot Wound Culture - Preliminary Staphylococcus aureus
[2024-02-09 17:45] LABS: Bedside Glucose 259 mg/dL (74-106)
[2024-02-09] MEDS: Montelukast 10 MG Tablet PO (21:16)
[2024-02-09 21:40] VITALS: BP 131/56; PULSE 105; RESP 16; TEMP 36.7; O2SAT 96
[2024-02-09] MEDS: oxyCODONE 5 MG Tablet PO (21:43)
[2024-02-09 21:57] LABS: Bedside Glucose 219 mg/dL (74-106)
[2024-02-10] VITALS (12 sets, daily range): BP systolic 104–126; BP diastolic 51–71; PULSE 87–108; RESP 14–20; TEMP 35.8–37.6; O2SAT 93–100; BMI 30.8; BMI 30.9
[2024-02-10] MEDS: oxyCODONE 5 MG Tablet PO (03:48)
[2024-02-10] MEDS: Ampicillin/Sulbactam 3 GM in 0.9% Normal Saline (100mL MB+) 100 ML IV ×3 (05:35→17:11)
[2024-02-10] MEDS: Liothyronine 5 MCG Tablet 12.5 MCG PO (05:37)
[2024-02-10] MEDS: Levothyroxine 112 MCG Tablet PO (05:37)
[2024-02-10] MEDS: 0.9% Saline Lock 10 ML Syringe IV ×4 (05:39→20:36)
[2024-02-10] MEDS: Insulin Lispro 100 UNIT/ML INSULN.PEN SC ×3 (06:32→20:45)
[2024-02-10 06:56] LABS: Bedside Glucose 227 mg/dL (74-106)
--- NOTE | 2024-02-10 06:59 | WOUNDNOTE ---
Pt scheduled for surgery later today per Dr Lewis. will leave dressing in place.
[2024-02-10] MEDS: Potassium Chloride 40 MEQ in 0.45% Normal Saline 1,000 ML 150 MEQ IV (07:03)
[2024-02-10 07:34] LABS: Hematocrit 33.9 % (37-47); Hemoglobin 10.9 g/dL (12.0-15.0); Mean Corp Hgb Conc 32.2 g/dL (32-36); Mean Corpuscular Hgb 30.1 pg (27.0-32.0); Mean Corpuscular Volume 93.6 fL (81-99); Mean Platelet Vol. 10.4 fl (6.2-12.0); POSITIVE COUNT YES; POSITIVE MORPHOLOGY YES; Platelet Count 338 K/mm3 (150-450); RBC Distribution Width SD 48.1 fl (35.1-43.9); Red Blood Count 3.62 M/mm3 (4.2-5.4); White Blood Count 21.8 K/mm3 (4.4-11.0)
[2024-02-10 08:24] LABS: Differential Indicated MANUAL DIFF
[2024-02-10 08:33] LABS: Anion Gap 9 (5-15); BUN 11 mg/dL (7-18); BUN/Creat Ratio 19.1 RATIO (10-20); Calcium,Total 8.7 mg/dL (8.5-10.1); Chloride 102 mmol/L (98-107); Creatinine, Serum 0.58 mg/dL (0.55-1.02); EST Glomerular Filtration Rate 114 mL/min (>60); Est Glom Filt Rate - Afr Amer 138 mL/min (>60); Estimated Creatinine Clearance 124.02 ml/min; Glucose 241 mg/dL (74-106); Potassium 4.1 mmol/L (3.5-5.1); Sodium Level 131 mmol/L (136-145)
[2024-02-10] MEDS: Loratadine 10 MG Tablet PO (09:23)
[2024-02-10] MEDS: Ibuprofen 400 MG Tablet PO ×2 (09:23→20:41)
[2024-02-10] MEDS: metFORMIN (XR) 500 MG Tablet 1000 MG PO ×2 (09:23→17:11)
[2024-02-10] MEDS: NORMAL SALINE 0.9% IV (10:14)
[2024-02-10] MEDS: DAPTOMYCIN IV (10:14)
--- NOTE | 2024-02-10 10:48 | PCM.PROGNOTE ---
Subjective Subjective Patient seen and examined. She feels well. Her back pain is improving. She had no active complaints. Review of symptoms otherwise negative. WBCs 21.8 today. 2D echo done yesterday showed no evidence of vegetation. Objective Data Objective Data Vital Signs: Vital Signs Temp Pulse Resp BP Pulse Ox O2 Del Method 96.4 F L 99 20 H 126/71 H 94 Room Air 02/10/24 08:32 02/10/24 08:32 02/10/24 08:32 02/10/24 08:32 02/10/24 08:32 02/10/24 08:32 Oxygen Delivery Method Room Air Weight: 203 lb 4.259 oz Body Mass Index (BMI) 30.9 Intake & Output: Intake and Output for Last 24 Hours 02/08/24 02/09/24 02/10/24 23:59 23:59 23:59 Intake Total 3360.0 / 3360.0 3829 / 3829 1724 / 1724 Balance 3360.0 / 3360.0 3829 / 3829 1724 / 1724 Lab / Micro Data 02/10/24 06:52 02/10/24 06:52 Labs: Laboratory Results - last 24 hr 02/08/24 11:00: S.aureus Protein A PCR POSITIVE H, MRSA (PCR) POSITIVE H 02/09/24 11:08: POC Glucose 327 H 02/09/24 17:09: POC Glucose 259 H 02/09/24 21:34: POC Glucose 219 H 02/10/24 06:31: POC Glucose 227 H 02/10/24 06:52: WBC 21.8 H, RBC 3.62 L, Hgb 10.9 L, Hct 33.9 L, MCV 93.6, MCH 30.1, MCHC 32.2 D, RDW Std Deviation 48.1 H, RDW Coeff of Amos 14.0, Plt Count 338, MPV 10.4, Neut % (Auto) Not Reportable, Sodium 131 L, Potassium 4.1, Chloride 102, Carbon Dioxide 20.0 L, Anion Gap 9, BUN 11, Creatinine 0.58, Estim Creat Clear Calc 124.02, Est GFR (MDRD) Af Amer 138, Est GFR (MDRD) Non-Af 114, BUN/Creatinine Ratio 19.1, Glucose 241 H, Calcium 8.7 Micro: Microbiology 02/08/24 08:46 Blood Culture (Wb) - Right Hand Blood Culture - Final Meth. resistant Staph. aureus 02/08/24 11:00 Wound - Right Foot Gram Stain - Final 02/08/24 11:00 Wound - Right Foot Wound Culture - Final Meth. resistant Staph. aureus 02/06/24 11:46 Urine, Clean Catch Urine Culture - Final Meth. resistant Staph. aureus 02/06/24 11:29 Mucosa - Nose SARS-CoV-2, Influenza & RSV (PCR) - Final Radiography Diagnostic Testing: Radiology Impression Echocardiogram 02/09/24 12:56 Interpretation Summary Inferior and septal hypokinesis. Estimated LVEF 45%. Normal diastology. Mildly dilated ascending aorta. Ordering Physician: Mehul Rubio Performed By: Edgard Sandoval and Student Lumbar Spine MRI 02/09/24 12:56 IMPRESSION: Scoliosis, degenerative disc disease and spondylosis. Laminectomies L4-5 and L5-S1. Multilevel neural foraminal narrowing as noted above. No evidence of discitis or osteomyelitis. Electronically Signed: Cristopher Zamarripa MD at 22:44 EDT , Physical Exam Const alert, oriented x3 and no apparent distress Constitutional Narrative: frail General Appearance: cooperative HEENT normocephalic, head/scalp atraumatic and moist oral mucous membranes Eyes PERRL and EOMs intact bilaterally Neck no lymphadenopathy, supple and no JVD Lymph Lymphatic: no lymphadenopathy noted and no lymphedema noted Resp normal respiratory effort, normal air movement, no retractions, no use of accessory muscles and clear to auscultation bilaterally Cardio regular rate, regular rhythm, S1 normal heart sound, S2 normal heart sound and no murmurs GI normal to inspection, nondistended, normoactive bowel sounds, soft to palpation, non-tender and non-distended Extremity Extremity Narrative: Right foot wrapped in bandage General Extremity: no tenderness to palpation of joints or extremities Skin Skin Narrative: as under extremity Neuro CN's II-XII intact bilaterally, moves all extremities, no focal motor deficits, no sensory deficits noted and deep tendon reflexes 2+ bilaterally Sensorium / Orientation: awake and alert Motor Exam: strength 5/5 throughout and general weakness Psych thought process normal, cooperative and affect normal Appearance: appropriate Assessment & Plan Assessment/Plan (1) Hypokalemia: (2) Hyponatremia: (3) Diabetes mellitus type 2, uncontrolled: PLAN: Plan #intractable nausea and vomiting resolving. likely due to her uncontrolled diabetes mellitus. Blood glucose was elevated. She had an elevated anion gap which has now arresolved A1C is elevated at 11.8 on sitagliptin and metformin. She has not been taking her sitagliptin because she cannot afford it. She is now on Metformin extended release 1000mg bid. ISS> Libby DAMON' Per case management, patient can get Lantus through insurance for $35 per month. He has only been discussed with patient and he says he will be able to afford this. Will therefore give a prescription for Lantus on discharge. case management and social work contacted to help patient with her insurance coverage for insulin. currently on lantus 10 units daily. #Poorly controlled diabetes mellitus: as above A1C is 11.2. Unable to afford her insulin and Januvia as prescribed. Currently on metformin extended release 1000 mg twice daily. Case management on board as stated above. Will discharge on subcu Lantus as insurance will cover for $35 a month. Case management as noted above. #Right foot cellulitis in setting of right Charcot foot. WBC slightly down to 21.8 today. for I& D today. podiatry on board on IV daptomycin as above. For right foot surgery today by podiatry. #Gram positive bacteremia She was on bactrim for MRSA UTI. She is allergic to vancomycin, so per discussion with ID today, patient started on IV daptomycin. WBC slightly down to 21.8 today. blood cultures growing gram positive cocci. MRSA PCR is positive. #UTI: Urine cultures growing MRSA. now on IV daptomycin due to positive blood cultueres #ANion gap metabolic acidosis likely due to starvation ketosis and mild DKA now resolved. #Hyponatremia was likely a pseudohyponatremia due to hyperglycemia. Resolving. Sodium is 131 today. Will monitor #Intractable back pain: Her back pain has improved slightly today. She did have MRI of the lumbar spine which showed scoliosis and degenerative disc disease as well as spondylosis, laminectomies and L4-L5 and L5-S1 and multilevel neural foraminal narrowing with no evidence of discitis osteomyelitis. PT/OT on board. Continue current pain meds. #Hypokalemia: Resolved. #Hypothyroidism: on synthroid DVT prophylaxis: lovenox Code status: full code Charges/Coding Visit Charges Inpatient E&M: 13747 Subs Hosp L3
[2024-02-10 11:06] LABS: Eosinophil 1 % (0-5); Lymphocyte 8 % (19-41); Monocyte 2 % (0-10); Myelocyte 4 % (0-0); Neutrophil-Band 3 % (0-5); Neutrophil-Segmented 82 % (47-70); Platelet Estimate ADEQUATE (ADEQ); Red Cell Morphology NORM C+C NORMAL (NORM C&C); Total Cells Counted 100 (MANUAL DIFF)
[2024-02-10 11:07] LABS: Absolute Lymphocyte Count 1.74 X10^3/uL (0.83-4.51); Absolute Neutrophil Count 18.5 X10^3/uL (2.0-7.7)
[2024-02-10 11:07] LABS: Bedside Glucose 206 mg/dL (74-106)
--- NOTE | 2024-02-10 11:16 | PCM.PRE.AN2 ---
ASA Classification* ASA Classification ASA Classification: 3 and E Assessment & Plan Anesthesia* Anesthesia Assessment Anesthesia Assessment: Discussed sedation and/or anesthesia options, risks, benefits, and alternatives with patient/parents/legal guardian/POA. Questions invited. The patient/parents/legal guardian/POA seems to understand and agrees to proceed with anesthesia plan. Reviewed the physical assessment, medical history, allergy history and patient home medications list prior to surgery/procedure/anesthetic and documented any changes. Performed airway and anesthesia risk assessments. Anesthesia Type Anesthesia Type: MAC (see written pre anesthesia record for full assessment) Anesthesia Focused Assessment* Temperature: 96.4 F Pulse Rate: 99 Blood Pressure: 126/71 Respiratory Rate: 20 Pulse Ox: 94 Airway Assessment Mouth opens: >3 cm Mallampati Score: II Focused Labs Anesthesia Preop lab: CBC WBC 21.8 K/mm3 (4.4-11.0) H 02/10/24 06:52 RBC 3.62 M/mm3 (4.2-5.4) L 02/10/24 06:52 Hgb 10.9 g/dL (12.0-15.0) L 02/10/24 06:52 Hct 33.9 % (37-47) L 02/10/24 06:52 Plt Count 338 K/mm3 (150-450) 02/10/24 06:52 CHEMISTRY Potassium 4.1 mmol/L (3.5-5.1) 02/10/24 06:52 Sodium 131 mmol/L (136-145) L 02/10/24 06:52 Magnesium 1.8 mg/dL (1.6-2.6) 11/25/21 06:20 Phosphorus 3.2 mg/dL (2.5-4.9) 05/22/21 03:55 BUN 11 mg/dL (7-18) 02/10/24 06:52 Creatinine 0.58 mg/dL (0.55-1.02) 02/10/24 06:52 Glucose 241 mg/dL (74-106) H 02/10/24 06:52 POC Glucose 206 mg/dL (74-106) H 02/10/24 10:49 TSH 0.29 uIU/mL (0.358-3.74) L 05/21/21 04:30 COAG PT 14.0 SECONDS (11.7-14.9) 11/22/21 18:00 Urine Test Negative Negative 05/21/21 00:05 Pre-Assessment Diagnosis/Proposed Procedure Planned Operative Procedure(s): i and D R foot Anesthesia History Anesthesia History - 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 When Was Last Pacemaker Check QUESTION #4 FULL TEXT: You/Your Family Experience fever (hyperthermia) with Anesthesia Last Oral Intake Last Oral intake: Last Oral Intake NPO since 00:00 02/10/24 09:30 Meds taken in AM with sips of Yes 02/10/24 09:30 water? Meds patient instructed to metformin, Claritin, motrin 02/10/24 09:30 take am of surgery PONV PONV - wood milling machine hand: PONV - wood milling machine hand Female HX of Motion Sickness HX of N/V After Surgery Non-Smoker Duration of Surgery greater than 60 minutes Number of Risk Factors PONV Score Height & Weight Height & Weight: Anesthesia: Height & Weight Height 5 ft 8 in 02/10/24 09:30 Weight: 92.2 kg 02/10/24 09:30 Body Mass Index (BMI) 30.9 02/10/24 09:30 Respiratory Assessment Respiratory Assessment - wood milling machine hand: Respiratory Tract Infection Hx - wood milling machine hand Hx Respiratory Tract Infection No 02/10/24 09:29 STOP Sleep Apnea STOP Sleep Apnea - wood milling machine hand: STOP Sleep Apnea - wood milling machine hand Hx Hypertension No 02/08/24 14:07 Hx Sleep Apnea No 02/06/24 14:55 CPAP BIPAP Do you snore loudly (louder Yes 02/06/24 14:55 than talking or can be heard Do you often feel tired/ Yes 02/06/24 14:55 fatigued/ sleepy during daytime? Has anyone observed you stop No 02/06/24 14:55 breathing during sleep? STOP Results Positive 02/06/24 14:55 QUESTION #5 FULL TEXT : Do you snore loudly (louder than talking or can be heard through closed doors)? 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 Specify any problems Hx of Preganancy in last 3 No 02/06/24 14:55 Months Nurse Filling Out Transfusion FERMIN 02/06/24 14:55 & Questions: Date: 02/06/24 02/06/24 14:55 Time: 15:11 02/06/24 14:55 Patient unable to answer at this time (ie. confused, unrespo /Reproduction History /Reproductive History - wood milling machine hand: /Reproductive Hx- wood milling machine hand Hx Now No 02/10/24 09:29 Gestational Age (in weeks): EDC: Hx Hx Para Hx Section SAB No 02/10/24 09:29 Active Medications Active Medications: Current Medications Generic Name Dose Route Start Last Admin Trade Name Freq PRN Reason Stop Dose Admin Acetaminophen 650 mg 02/06/24 14:51 02/08/24 05:56 Acetaminophen 325 Mg Tablet PO 650 mg Q6H PRN PRN Administration Pain 1-10 Or Fever >100.7 Baclofen 10 mg 02/06/24 14:51 02/08/24 23:04 Baclofen 10 Mg Tablet PO 10 mg TID PRN PRN Administration MUSCLE SPASMS Enoxaparin Sodium 40 mg 02/07/24 10:00 02/10/24 09:27 Enoxaparin 40 Mg/0.4 Ml Syringe SC Not Given DAILY ORTIZ Fluticasone Propionate 1 spray 02/06/24 14:51 Fluticasone 0.05% 1 Warren Nasal.Sry NASAL BID PRN allergies Glucagon 1 mg 02/06/24 14:51 Glucagon 1 Mg/Ml Syringe IM X1 PRN HYPOGLYCEMIA Protocol Dextrose 250 mls @ 0 mls/hr 02/06/24 14:51 Dextrose 10%-Water IV .Q0M PRN HYPOGLYCEMIA Protocol As Directed Sodium Chloride 250 mls @ 15 mls/hr 02/06/24 14:58 IV .[id number] PRN Additional IVPB Infusion Sodium Chloride 250 mls @ 15 mls/hr 02/06/24 14:58 IV .[id number] PRN Saline Flush Potassium Chloride 40 meq/ 1,020 mls @ 150 mls/hr 02/06/24 16:05 02/10/24 10:15 Sodium Chloride IV 0 mls/hr .Q6H48M ORTIZ Infusion Daptomycin 750 mg/ Sodium 65 mls @ 129.2 mls/hr 02/09/24 10:00 02/10/24 10:14 Chloride IV 129.2 mls/hr Q24 ORTIZ Administration Ampicillin Sodium/Sulbactam 112 mls @ 150 mls/hr 02/09/24 13:00 02/10/24 06:20 Sodium 3 gm/ Sodium Chloride IV Infused Q6 ORTIZ Infusion Ibuprofen 400 mg 02/06/24 22:00 02/10/24 09:23 Ibuprofen 400 Mg Tablet PO 400 mg BID ORTIZ Administration Insulin Glargine 10 unit 02/06/24 14:51 02/10/24 09:28 Insulin Glargine-Yfgn 100 Unit/Ml Pen SC Not Given DAILY [facility] Insulin Human Lispro 0 unit 02/06/24 16:00 02/10/24 06:32 Insulin Lispro 100 Unit/Ml Insuln.Pen SC 4 u ACHS ORTIZ Administration Protocol L-Arginine/L-Glutamine/Calcium HMB 1 packet 02/07/24 17:00 02/10/24 09:23 Chas (Unflavored) Packet [facility] Levothy[facility]ine Sodium 112 mcg 02/09/24 06:00 02/10/24 05:37 Levothyroxine 112 Mcg Tablet PO 112 mcg DAILY@0600 ORTIZ Administration Liothyronine Sodium 12.5 mcg 02/09/24 06:00 02/10/24 05:37 Liothyronine 5 Mcg Tablet PO 12.5 mcg DAILY@0600 ORTIZ Administration Loratadine 10 mg 02/07/24 10:00 02/10/24 09:23 Loratadine 10 Mg Tablet PO 10 mg DAILY ORTIZ Administration Metformin HCl 1,000 mg 02/07/24 17:00 02/10/24 09:23 Metformin (Xr) 500 Mg Tablet PO 500 mg BIDCM [facility] Administration Montelukast Sodium 10 mg 02/06/24 22:00 02/09/24 21:16 Montelukast 10 Mg Tablet PO 10 mg QHS [facility] Administration Morphine Sulfate 2 mg 02/08/24 18:01 02/09/24 17:22 Morphine 2 Mg/Ml Syringe IV 2 mg Q3H PRN PRN Administration Pain Score 1-10 Ondansetron HCl 4 mg 02/06/24 14:51 Ondansetron 4 Mg/2 Ml Vial IV Q8H PRN PRN NAUSEA/VOMITING Oxycodone HCl 5 mg 02/08/24 18:01 02/10/24 03:48 Oxycodone 5 Mg Tablet PO 5 mg Q6H PRN PRN Administration Pain Score 1-10 Prochlorperazine Edisylate 5 mg 02/06/24 14:51 Prochlorperazine 10 Mg/2 Ml Vial IV Q4H PRN PRN Breakthrough Nausea/Vomiting Sodium Chloride 10 - 40 ml 02/06/24 14:58 02/10/24 07:03 0.9% Saline Lock 10 Ml Syringe IV 10 ml UD PRN Administration SALINE FLUSH PFSH Medical History Hypotension Post-menopausal Back pain Injury of head and neck Dietary restriction Diabetes Former smoker Asthma Chronic ulcer of right foot due to diabetes mellitus Non-pressure 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 Infectious tenosynovitis Cellulitis of right lower limb MRSA bacteremia Acute osteomyelitis of left foot Diabetes mellitus with diabetic polyneuropathy Charcot's joint of right foot Narcolepsy Sleep disorder Allergies Hypothyroidism History of MRSA infection Weakness COVID-19 DKA, type 2 Malnutrition 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 Home Medications ?Medication ?Instructions ?Recorded ?Last Taken ?Type armodafinil 150 mg tablet 150 mg PO BID to stay awake 09/25/16 Unknown History liothyronine 25 mcg tablet 25 mcg PO DAILY thyroid 09/25/16 Unknown History montelukast 10 mg tablet 10 mg PO QHS allergy 09/25/16 Unknown History (Singulair) baclofen 10 mg tablet 10 mg PO TID PRN muscle relax 01/01/21 Unknown History fluticasone propionate 50 1 spray intranasal BID PRN 01/01/21 Unknown History mcg/actuation nasal allergies spray,suspension ibuprofen 200 mg tablet (Advil) 400 mg PO BID pain 05/21/21 Unknown History levocetirizine 5 mg tablet 1 tab PO DAILY PRN Allergies 11/22/21 Unknown History levothyroxine 125 mcg tablet 100 mcg PO DAILY thyroid 11/22/21 Unknown History sitagliptin phosphate 50 4 tab PO DAILY diabetes 11/22/21 Unknown History mg-metformin 500 mg tablet ([place]) hydrocodone-acetaminophen 5-325mg 1 tab PO Q6H PRN pain 7 days #28 10/16/22 Unknown Rx 5mg-325mg tabs metformin 500 mg tablet,extended 1,000 mg PO BID diabetes 02/06/24 Unknown History release 24 hr levothyroxine 112 mcg tablet 112 mcg PO DAILY thyroi 02/09/24 Unknown History Allergy/AdvReac Type Severity Reaction Status Date / Time clindamycin Allergy Hives Verified 02/06/24 10:27 pregabalin (From Lyrica) Allergy Swelling Verified 02/06/24 10:27 bee venom protein (honey bee) AdvReac Anaphylaxis Verified 02/06/24 10:27 vancomycin AdvReac Other Verified 02/06/24 10:27 Family History Father CVA (cerebral vascular accident) Clotting disorder Seizures Mother Osteoarthritis Other Charcot's joint of right foot Diabetes Heart disease Hypertension 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 alcohol intake: current alcohol intake frequency: holidays/special occasions only substance use type: does not use Review of Systems (Anesthesia) ROS Narrative System reviewed and no additional complaints, except as documented.
--- NOTE | 2024-02-10 12:00 | TISS_PTH ---
PATHOLOGY RESULTS PATIENT: FREEMAN MOCTEZUMA LOC: [facility] U#:[id number] AGE/SX: 58/F ROOM: [facility] RE02/06/[address]: Dr. Danielle Zavala MD : 1965 BED: 1 DIS: 02/22/2024 SPEC #: [id number] RECD: 02/11/24 10:41 STATUS: WENDY AKERSConcepcion #: [id number] ROBBY: 02/10/24 12:[address]: Jason Lewis DEPT: SURGICAL PATHOLOGY RECD BY: Ivy Coppola ENTERED: 02/11/24 12:35 SP TYPE: Tissue Bx GENARO DR: DO Dr. Danielle England MD Dr. Robert Leininger, MD Dr. William Lago, MD Tissues: TISSUE SURGICALLY REMOVED Procedures: Surgery Specimen Level IV HEADER OPERATION: Incision drainage, abscess foot, application of wound PRE-OP DIAGNOSIS: Non-pressure 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, cellulitis of right lower limb, foot abscess, right, type 2 diabetes mellitus with diabetic polyneuropathy TISSUE SUBMITTED: Right foot tissue MICROSCOPIC DIAGNOSIS Right foot tissue, excision: Pieces of fibroconnective tissue with acute and chronic inflammation, granulation tissue reaction and abscess formation. 02/14/2024 MICROSCOPIC DESCRIPTION Slides are reviewed. GROSS DESCRIPTION Received in fixative is one container labeled with the patient's name and designated Right foot tissue. The specimen consists of multiple irregular fragments of greyish soft tissue that in aggregate measure 6.5 x 3.0 x 1.0 cm. Concreter tissue is submitted in one cassette. 02/11/2024 TC:2 CPT:[id number]
[2024-02-10] MEDS: 0.9% Normal Saline (1000mL) 1,000 ML 15 ML IV (12:06)
[2024-02-10 13:04] LABS: Pathologist Review Reviewed
[2024-02-10] MEDS: Vancomycin IV 1,000 MG/20 ML Vial 1000 MG OPERA.SITE (13:45)
[2024-02-10] MEDS: Lidocaine 1% (20 ml mdv) 20 ML Vial (14:51)
[2024-02-10] MEDS: Bupivacaine Mpf 0.5% 30 ML VIAL (14:51)
--- NOTE | 2024-02-10 15:03 | PCM.POST.ANE ---
Anesthesia: Postop Eval I Current Vital Signs Temperature: 97.4 F Pulse Rate: 98 Blood Pressure: 118/69 Respiratory Rate: 16 Pulse Ox: 96 Oxygen Delivery Method: Room Air Assessment Airway patent: Yes Spontaneous unlabored respirations: Yes Mental status: Awake and Calm nausea: No Vomiting: No Anesthesia Complication: No Fluid Hydration Crystalloid volume administer (ml): 1,000 Total IV fluid infused: 1,000 Progress Note Anesthesia document: Postop Eval 1 completed: Yes
[2024-02-10 15:06] LABS: Pathologist Review Reviewed
--- NOTE | 2024-02-10 15:33 | PN.ID_ITS ---
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 MRI did not show lumbar osteo/discitis. No veg on TTE. Cont dapto and unasyn. Podiatry following, OR planned. 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
--- NOTE | 2024-02-10 15:39 | POSTOPAN2_ITS ---
Anesthesia Postop Eval I Sum Postop Eval Completion status Anesthesia document: Postop Eval 1 completed: Yes Anesthesia Postop Eval I Summary Anesthesia Postop Eval I Summary: Anesthesia Postop Eval I: Assessment Summary Airway patent Yes 02/10/24 15:03 [email or web address] Spontaneous unlabored Yes 02/10/24 15:03 PAN [email or web address] respirations Mental status Awake,Calm 02/10/24 15:03 PAN [email or web address] nausea No 02/10/24 15:03 PAN [email or web address].GDOTT Vomiting No 02/10/24 15:03 PAN [email or web address] Anesthesia Postop Eval I: Fluid Summary Crystalloid volume administer 1,000 02/10/24 15:03 PAN [email or web address] (ml) Colloids volume administered ( ml) Blood Product volume administered (ml) Total IV fluid infused 1,000 02/10/24 15:03 PAN [email or web address] Anesthesia Postop Eval I: Summary Notes Anesthesia Complication No 02/10/24 15:03 PAN [email or web address] Anesthesia Complication Comment: Post-operative progress note Anesthesia: Postop Eval II Evaluation Mental status: Awake Pain Level: 0 nausea: No Vomiting: No
--- NOTE | 2024-02-10 15:39 | PCM.POSTANE2 ---
Anesthesia Postop Eval I Sum Postop Eval Completion status Anesthesia document: Postop Eval 1 completed: Yes Anesthesia Postop Eval I Summary Anesthesia Postop Eval I Summary: Anesthesia Postop Eval I: Assessment Summary Airway patent Yes 02/10/24 15:03 MACHINE [email or web address] Spontaneous unlabored Yes 02/10/24 15:03 MACHINE [email or web address].GDOTT respirations Mental status Awake,Calm 02/10/24 15:03 MACHINE [email or web address] nausea No 02/10/24 15:03 MACHINE [email or web address].GDOTT Vomiting No 02/10/24 15:03 MACHINE [email or web address].GDOTT Anesthesia Postop Eval I: Fluid Summary Crystalloid volume administer 1,000 02/10/24 15:03 MACHINE [email or web address].GDOTT (ml) Colloids volume administered ( ml) Blood Product volume administered (ml) Total IV fluid infused 1,000 02/10/24 15:03 MACHINE [email or web address].GDOTT Anesthesia Postop Eval I: Summary Notes Anesthesia Complication No 02/10/24 15:03 MACHINE [email or web address].GDOTT Anesthesia Complication Comment: Post-operative progress note Anesthesia: Postop Eval II Evaluation Mental status: Awake Pain Level: 0 nausea: No Vomiting: No
--- NOTE | 2024-02-10 15:52 | OP.PCM_ITS ---
Problems Associated Problem List Diagnoses (1) Cellulitis of right lower limb: (2) Foot abscess, right: (3) Type 2 diabetes mellitus with diabetic polyneuropathy: (4) Charcot's joint of right foot: Report of Operation Date of Procedure: 02/10/24 Pre-Operative Diagnosis: 1. Cellulitis Right foot 2. Abscess Dorsal Right foot 3. Superficial ulceration without fat layer exposure pretibial border right leg 4. Diabetes mellitus type 2 with peripheral polyneuropathy 5. Charcot Arthropathy Right foot Post-Operative Diagnosis: 1. Cellulitis Right foot 2. Abscess Dorsal Right foot 3. Superficial ulceration without fat layer exposure pretibial border right leg 4. Diabetes mellitus type 2 with peripheral polyneuropathy 5. Charcot Arthropathy Right foot Surgery/Procedure Performed:: 1. Incision and drainage with wide debridement of necrotic tissue Right foot 2. Application of wound VAC right foot Description of Surgical Findings:: Large Abscess with destruction of the soft tissue overlying the Talonavicular joint and Naviculocuneiform joint Right foot No tracking up the Anterior Tibial Tendon. See operative note for other findings Surgeon: Jason Lewis remodeler: None Type of Anesthesia: General and Local (Post-operative block: 10cc one-to-one mixture 1% lidocaine and 0.5% Marcaine plain) Specimen's removed: Necrotic tissue and purulent tissue right foot Drains: None Estimated Blood Loss (mL): 15mL Description of Procedure: HPI/indication: This is a 58-year-old female with PMHx of Charcot foot deformity of the right foot, diabetes mellitus type 2 with peripheral polyneuropathy, Hx of right foot infection requiring multiple I&D's in 2021 with another provider, and right leg ulceration secondary to her previous surgeries which had been healed prior. Patient has been following with me in office for recent superficial pretibial ulceration secondary to something that had rubbed her leg causing irritation to the skin. This was healing well with no signs of infection during last visit in office 01/31/2024. Patient reports on , 02/03/2024 that she began to feel nauseous and had difficulty keeping food down. States they were increasing the dosage on her metformin extended release secondary to insurance not covering her insulin with [id number] cost too high. Patient subsequently entered a starvation ketosis with generalized weakness and presented to the [place] [facility] evening of 02/06/2024 and with weakened immune system developed right foot infection well distal to her previous superficial ulceration at the level of the dorsal foot with acute abscess formation on 02/08/2024. Cultures were obtained at that time and were positive for MRSA and podiatry was consulted for surgical intervention. I discussed the need for surgical intervention with the patient. Patient understands that this is a limb salvage procedure and not elective. Discussed the need to drain the abscess and debride all necrotic tissue to prevent further spread through the foot or up the leg, in addition to removing infectious burden to improve her sepsis. Patient understands that she is at high risk of amputation of the lower extremity secondary to infection and Charcot foot deformity. She is understanding of this and wishes to proceed forward with the limb salvage procedure. Discussed the procedure in detail with the patient and discussed risks and potential complications. Discussed the risk/complications include but are not limited to the following: Pain, continued pain, complex regional pain syndrome, neuritis/numbness, progression of Charcot foot deformity, infection, dehiscence, delayed healing/nonhealing, need for further surgical procedures, poor cosmetic result, scarring, bleeding, difficulty wearing shoe gear, difficulty with ambulation, contracture, blood clot, allergic reaction, stroke, heart attack, loss of limb, loss of function, loss of life. She is understanding of these and was able to repeat these back. All diagnostic data was reviewed prior to entering the OR. Operative limb was signed prior to entering the OR. Patient was scheduled to undergo I&D of the right foot at [facility] on 02/10/2024. Procedure: Under mild sedation patient was brought into the operating room placed on table in supine position. Patient was secured to table with safety belt. Following induction of general anesthesia a hip bump was placed under the right hip and the right foot was elevated via a blanket bump. A well-padded pneumatic thigh tourniquet was placed about the patient's right thigh. The foot was then scrubbed, prepped, and draped in usual aseptic manner. The right foot was elevated and the pneumatic thigh tourniquet was inflated to 300 mmHg. At this time attention was directed to the right foot where there was a large noted soft tissue defect secondary to abscess eroding through skin dorsal to the navicular cuneiform joint. Just medial to this soft tissue defect overlying area of fluctuance, a linear incision was made proximal to the navicular tuberosity and carried distally to the medial cuneiform. Incision was deepened through sharp and blunt dissection. Necrotic tissue was debrided utilizing #15 blade and rongeur. No purulence was noted overlying this site however this pocket does communicate with the soft tissue defect at the dorsal aspect. Following debridement of the necrotic tissue the site was flushed utilizing copious amounts of normal sterile saline. An incision was made through the periosteum overlying the region of the navicular bone where a prominent portion of bone was noted. Utilizing rongeur and sagittal saw this portion was resected and smoothed to prevent ulceration of the medial skin of the foot. The site was again flushed with copious amounts of normal sterile saline. Next, attention was directed to the anterior ankle and dorsal foot where a linear incision was made proximal to her superficial ulceration and extended distally beyond the level of the soft tissue defect to the base of the second metatarsal. Incision was deepened utilizing sharp dissection. There were some scant purulent pockets however the bulk of the purulence and necrotic tissue was within the region of the soft tissue defect. There were 2 large loculated abscess pockets at this site which were broken up and removed in their entirety. The two thickened, dense, brownish purulent tissue pieces were passed from the operative field following their excision and transferred to the table in toto. 1 piece being sent to microbiology for culture and the second piece sent to pathology for analysis. Next, the sites were further explored for any remaining purulent drainage and necrotic tissue. There was some necrotic tissue along the anterior tibial tendon which was debrided utilizing #15 blade and rongeur to healthy viable tendon. The remaining portions of the soft tissue were debrided of all necrotic tissue to healthy appearing viable tissue. All sites were then expressed proximal to distal at the leg and distal to proximal at the foot towards the incision site and no further purulence was noted. Next, the site was copiously irrigated via 3000 cc pulse lavage throughout both incision sites. Following irrigation all tissue was reexamined and noted to be healthy appearing. Underlying bone was noted to be hard indicating viability. The medial incision site was then closed deep utilizing 4-0 Vicryl. Subcutaneous tissues closed utilizing 4-0 Monocryl. The skin reapproximated utilizing 2-0 Prolene in simple interrupted fashion. Next, 1 g of vancomycin powder was placed throughout the the anterior incision site and in all regions where the purulent tissue was previously noted. Next, the deep tissues were closed utilizing 4-0 Vicryl. The subcutaneous tissues closed utilizing 4-0 Monocryl. The skin was then reapproximated in simple interrupted fashion utilizing a 2-0 Prolene. Incision sites were then dressed with Betadine soaked Adaptic. There did remain a portion where the soft tissue defect remained which was not closable measuring 5.5 cm x 1.5 cm x 1.0 cm. A wound VAC was applied to this area of soft tissue defect to aid in granulation tissue and closure. The wound VAC was set at 125 mmHg continuous pressure with no leak detected. At this time the pneumatic thigh tourniquet was deflated and a prompt hyperemic response was noted to the digits of the right foot. A postoperative block was performed proximal to the surgical site consisting of 10 cc one-to-one mixture of 1% lidocaine plain and 0.5% Marcaine plain. The foot was then dressed with 4 x 4 gauze, ABD x 2, Kerlix x 2, and 4 inch Sebastian wrap x 2 rolled onto the foot. The patient tolerated the anesthesia and procedure well and was transferred to the PACU with vital signs stable vascular status intact to the right foot. Once anesthesia protocol is met she will be returned to the floor and will continue to receive IV antibiotics. Dressing to remain in place with wound VAC undisturbed with plans to change wound VAC on 02/14/2024. Patient will continue to remain nonweightbearing to the right lower extremity. Will continue to elevate foot for postoperative edema control. I will continue to follow while in house. Grafts/Implants Used: 1 g vancomycin powder; wound VAC right foot Complications None Admit VTE Documentation VTE Present on Admission: No VTE Mechan Device Prophylaxis: SCD's VTE Pharm Prophylaxis ordered?: No Reason prophylaxis not ordered:: Procedure Not Indicated
[2024-02-10 16:39] LABS: Bedside Glucose 211 mg/dL (74-106)
--- NOTE | 2024-02-10 16:39 | PCM.WC.PN ---
History of Present Illness Chief Complaint: right foot ulcer and Right Leg wound History of Wound: This 55-year-old female presents for care of right foot wound. She had surgery at [facility] in November 2020. She denies current fever, chill, nausea, vomiting. She denies delays in wound care and has been applying saline wet-to-dry to help with home health. She relates her bone biopsy that was obtained during her foot surgery was negative for osteomyelitis. She has a PICC placed and saw infectious disease specialist, Dr. Paez at [facility]. She relates she is almost complete with her IV antibiotic course. She is offloading with a surgical shoe. She takes nutritional supplementation including vitamin D and B. She denies claudication. She does have rest paresthesias. She is diabetic with an A1c of over 8%. She also has history of back injuries. Since her last visit, she reports she had thick fluid squirting out of the wound with application of her silver dressing. She was concerned it was infected and called in yesterday. She is advised by nursing staff to go to the emergency room if she thought she had a rapid onset infection. She relates she is scheduled to see her surgeon tomorrow. She did not obtain the previously ordered labs and foot x-rays. She denies current redness or odor. Medical records reviewed from and it is noted she had right foot incision and drainage of fifth metatarsal on 12-04-20. Her surgeon was Dr. Blanchard. She is advised wearing AFO brace. It is noted she started on Bactrim and then after the surgery she was placed on IV antibiotics. She later developed an infection of her right foot ulceration and underwent I&D with wide debridement on 05-23-21 and 05-28-[address] Alexandre and Dr. Gonzalez. Cultures were positive for MRSA and Enterococcus and was placed on IV Vancomycin by infectious disease. She was discharged to a correction facility with instructions for wound vac application to right anterior leg and lateral right foot and wet to dry Dakin's dressings to the right foot. Allergies: Clindamycin Medications cyclo-Benzapril, NuvaRing, Advil, Cytomel, Dunn Loring, armodafinil, Singulair, Synthroid, Lyrica Past medical history: diabetes and history of back surgery, ankle surgery, right knee arthroscopy Social history: former smoker and no current tobacco use; quit in 1981 Subjective Subjective Patient seen following surgical intervention sitting up and talking. Patient ready to eat. Denies pain following procedure. Does have neuropathy. Objective Data Objective Data Vital Signs: Vital Signs Temp Pulse Resp BP Pulse Ox O2 Del Method 98.0 F 88 18 117/62 93 Room Air 02/10/24 16:02 02/10/24 16:02 02/10/24 16:02 02/10/24 16:02 02/10/24 16:02 02/10/24 16:02 Oxygen Delivery Method Room Air Weight: 92.2 kg Body Mass Index (BMI) 30.9 Intake & Output: Intake and Output for Last 24 Hours 02/08/24 02/09/24 02/10/24 23:59 23:59 23:59 Intake Total 3360.0 / 3360.0 3829 / 3829 1962 Balance 3360.0 / 3360.0 382 / 3829 1962 Lab / Micro Data 02/10/24 06:52 02/10/24 06:52 Labs: Laboratory Results - last 24 hr 02/08/24 06:18: Diff Path Review Reviewed 02/09/24 05:51: Diff Path Review Reviewed 02/09/24 17:09: POC Glucose 259 H 02/09/24 21:34: POC Glucose 219 H 02/10/24 06:31: POC Glucose 227 H 02/10/24 06:52: WBC 21.8 H, RBC 3.62 L, Hgb 10.9 L, Hct 33.9 L, MCV 93.6, MCH 30.1, MCHC 32.2 D, RDW Std Deviation 48.1 H, RDW Coeff of Amos 14.0, Plt Count 338, MPV 10.4, Neut % (Auto) Not Reportable, Absolute Neuts (auto) 18.5 H, Absolute Lymphs (auto) 1.74, Total Counted 100, Neutrophils % (Manual) 82 H, Band Neutrophils % 3, Lymphocytes % (Manual) 8 L, Monocytes % (Manual) 2, Eosinophils % (Manual) 1, Myelocytes % 4 H, Diff Path Review May , Platelet Estimate ADEQUATE, RBC Morphology NORM C+C, Sodium 131 L, Potassium 4.1, Chloride 102, Carbon Dioxide 20.0 L, Anion Gap 9, BUN 11, Creatinine 0.58, Estim Creat Clear Calc 124.02, Est GFR (MDRD) Af Amer 138, Est GFR (MDRD) Non-Af 114, BUN/Creatinine Ratio 19.1, Glucose 241 H, Calcium 8.7 02/10/24 10:49: POC Glucose 206 H 02/10/24 16:21: POC Glucose 211 H Micro: Microbiology 02/08/24 08:46 Blood Culture (Wb) - Right Hand Blood Culture - Final Meth. resistant Staph. aureus 02/08/24 11:00 Wound - Right Foot Gram Stain - Final 02/08/24 11:00 Wound - Right Foot Wound Culture - Final Meth. resistant Staph. aureus 02/06/24 11:46 Urine, Clean Catch Urine Culture - Final Meth. resistant Staph. aureus 02/06/24 11:29 Mucosa - Nose SARS-CoV-2, Influenza & RSV (PCR) - Final Radiography Diagnostic Testing: Radiology Impression Echocardiogram 02/09/24 12:56 Interpretation Summary Inferior and septal hypokinesis. Estimated LVEF 45%. Normal diastology. Mildly dilated ascending aorta. Ordering Physician: Mehul Rubio Performed By: Edgard Sandoval and Student Lumbar Spine MRI 02/09/24 12:56 IMPRESSION: Scoliosis, degenerative disc disease and spondylosis. Laminectomies L4-5 and L5-S1. Multilevel neural foraminal narrowing as noted above. No evidence of discitis or osteomyelitis. Electronically Signed: Cristopher Zamarripa MD at 22:44 EDT , Physical Exam Const alert and oriented x3 Constitutional Narrative: Generally ill-appearing. General Appearance: cooperative HEENT normocephalic Eyes General Eye: normal appearance of both eyes Neck General: normal visual inspection Lymph Lymphatic: no lymphadenopathy noted and no lymphedema noted Resp normal respiratory effort Cardio regular rate and regular rhythm Extremity normal capillary refill and no calf tenderness Extremity Narrative: Right Lower Extremity: Vascular: DP and PT pulses palpable. CFT < 4 seconds to digits. Increased temperature overlying dorsal foot and medial foot. Hair growth diminished to digits. Neurologic: Absent protective sensation secondary to Diabetic Peripheral Polyneuropathy. Musculoskeletal: Muscle strength 5 of 5 age-appropriate. No pain to palpation about the ulcerative site or dorsal foot. Charcot foot deformity noted. Dermatological: Incision distal anterior leg extending to dorsal foot with sutures intact. Incision medial foot with sutures intact. Soft tissue defect dorsal medial foot measuring 5.5 cm x 1.5 cm x 1.0 cm with wound VAC in place. Surgical dressings in place. Skin skin turgor normal and no jaundice Neuro moves all extremities Assessment/Plan Assessment/Plan (1) Cellulitis of right lower limb: CODE(S): L03.115 - Cellulitis of right lower limb (2) Foot abscess, right: CODE(S): L02.611 - Cutaneous abscess of right foot (3) Type 2 diabetes mellitus with diabetic polyneuropathy: CODE(S): E11.42 - Type 2 diabetes mellitus with diabetic polyneuropathy QUALIFIERS: Diabetes mellitus rigger insulin use: with rigger use Qualified Code(s): E11.42 - Type 2 diabetes mellitus with diabetic polyneuropathy; Z79.4 - [employer] (current) use of insulin (4) Charcot's joint of right foot: CODE(S): M14.671 - Charcot's joint, right ankle and foot PLAN: Plan Patient seen and evaluated Underwent I&D with wide debridement of necrotic tissue and application of wound VAC right foot 02/10/2024. Right Lower Extremity: WBC 22.3; Hgb 11.9; Hct 35.0; Lactic Acid 1.1 Blood cultures demonstrate MRSA Wound culture of new abscess region demonstrates Staph aureus protein A PCR positive; MRSA PCR positive. Cultures MRSA Medicine team following for medical management, they are greatly appreciated Infectious disease consulted for antibiotic management, their input is appreciated Wound care nurse following for assisting in dressing changes. She is to remain nonweightbearing to the right lower extremity Will continue to elevate foot for postoperative edema control. Dressings to remain in place with wound VAC undisturbed. Plans to change wound VAC on 02/14/2024. I will continue to follow while in house. Jr. Susan Dent.P.M. [facility] [phone]
--- NOTE | 2024-02-10 16:45 | PN_ITS ---
Subjective Subjective Patient seen following surgical intervention sitting up and talking. Patient ready to eat. Denies pain following procedure. Does have neuropathy. Objective Data Objective Data Vital Signs: Vital Signs Temp Pulse Resp BP Pulse Ox O2 Del Method 98.0 F 88 18 117/62 93 Room Air 02/10/24 16:02 02/10/24 16:02 02/10/24 16:02 02/10/24 16:02 02/10/24 16:02 02/10/24 16:02 Oxygen Delivery Method Room Air Weight: 92.2 kg Body Mass Index (BMI) 30.9 Intake & Output: Intake and Output for Last 24 Hours 02/08/24 02/09/24 02/10/24 23:59 23:59 23:59 Intake Total 3360.0 / 3360.0 382 / 3829 1962 Balance 3360.0 / 3360.0 382 / 3829 1962 Lab / Micro Data 02/10/24 06:52 02/10/24 06:52 Labs: Laboratory Results - last 24 hr 02/08/24 06:18: Diff Path Review Reviewed 02/09/24 05:51: Diff Path Review Reviewed 02/09/24 17:09: POC Glucose 259 H 02/09/24 21:34: POC Glucose 219 H 02/10/24 06:31: POC Glucose 227 H 02/10/24 06:52: WBC 21.8 H, RBC 3.62 L, Hgb 10.9 L, Hct 33.9 L, MCV 93.6, MCH 30.1, MCHC 32.2 D, RDW Std Deviation 48.1 H, RDW Coeff of Amos 14.0, Plt Count 338, MPV 10.4, Neut % (Auto) Not Reportable, Absolute Neuts (auto) 18.5 H, Absolute Lymphs (auto) 1.74, Total Counted 100, Neutrophils % (Manual) 82 H, Band Neutrophils % 3, Lymphocytes % (Manual) 8 L, Monocytes % (Manual) 2, Eosinophils % (Manual) 1, Myelocytes % 4 H, Diff Path Review May , Platelet Estimate ADEQUATE, RBC Morphology NORM C+C, Sodium 131 L, Potassium 4.1, Chloride 102, Carbon Dioxide 20.0 L, Anion Gap 9, BUN 11, Creatinine 0.58, Estim Creat Clear Calc 124.02, Est GFR (MDRD) Af Amer 138, Est GFR (MDRD) Non-Af 114, BUN/Creatinine Ratio 19.1, Glucose 241 H, Calcium 8.7 02/10/24 10:49: POC Glucose 206 H 02/10/24 16:21: POC Glucose 211 H Micro: Microbiology 02/08/24 08:46 Blood Culture (Wb) - Right Hand Blood Culture - Final Meth. resistant Staph. aureus 02/08/24 11:00 Wound - Right Foot Gram Stain - Final 02/08/24 11:00 Wound - Right Foot Wound Culture - Final Meth. resistant Staph. aureus 02/06/24 11:46 Urine, Clean Catch Urine Culture - Final Meth. resistant Staph. aureus 02/06/24 11:29 Mucosa - Nose SARS-CoV-2, Influenza & RSV (PCR) - Final Radiography Diagnostic Testing: Radiology Impression Echocardiogram 02/09/24 12:56 Interpretation Summary Inferior and septal hypokinesis. Estimated LVEF 45%. Normal diastology. Mildly dilated ascending aorta. Ordering Physician: Mehul Rubio Performed By: Edgard Sandoval and Student Lumbar Spine MRI 02/09/24 12:56 IMPRESSION: Scoliosis, degenerative disc disease and spondylosis. Laminectomies L4-5 and L5-S1. Multilevel neural foraminal narrowing as noted above. No evidence of discitis or osteomyelitis. Electronically Signed: Cristopher Zamarripa MD at 22:44 EDT , Physical Exam Const alert and oriented x3 Constitutional Narrative: Generally ill-appearing. General Appearance: cooperative HEENT normocephalic Eyes General Eye: normal appearance of both eyes Neck General: normal visual inspection Lymph Lymphatic: no lymphadenopathy noted and no lymphedema noted Resp normal respiratory effort Cardio regular rate and regular rhythm Extremity normal capillary refill and no calf tenderness Extremity Narrative: Right Lower Extremity: Vascular: DP and PT pulses palpable. CFT < 4 seconds to digits. Increased temperature overlying dorsal foot and medial foot. Hair growth diminished to digits. Neurologic: Absent protective sensation secondary to Diabetic Peripheral Polyneuropathy. Musculoskeletal: Muscle strength 5 of 5 age-appropriate. No pain to palpation about the ulcerative site or dorsal foot. Charcot foot deformity noted. Dermatological: Incision distal anterior leg extending to dorsal foot with sutures intact. Incision medial foot with sutures intact. Soft tissue defect dorsal medial foot measuring 5.5 cm x 1.5 cm x 1.0 cm with wound VAC in place. Surgical dressings in place. Skin skin turgor normal and no jaundice Neuro moves all extremities Assessment & Plan Assessment/Plan (1) Cellulitis of right lower limb: (2) Foot abscess, right: (3) Type 2 diabetes mellitus with diabetic polyneuropathy: QUALIFIERS: Diabetes mellitus long term care administrator insulin use: with mcc use Qualified Code(s): E11.42 - Type 2 diabetes mellitus with diabetic polyneuropathy; Z79.4 - [facility] (current) use of insulin (4) Charcot's joint of right foot: PLAN: Plan Patient seen and evaluated Underwent I&D with wide debridement of necrotic tissue and application of wound VAC right foot 02/10/2024. Right Lower Extremity: Incision distal anterior leg extending to dorsal foot with sutures intact. Incision medial foot with sutures intact. Soft tissue defect dorsal medial foot measuring 5.5 cm x 1.5 cm x 1.0 cm with wound VAC in place. Surgical dressings in place. WBC 22.3; Hgb 11.9; Hct 35.0; Lactic Acid 1.1 Blood cultures demonstrate MRSA Wound culture of new abscess region demonstrates Staph aureus protein A PCR positive; MRSA PCR positive. Cultures MRSA Surgical Cultures obtained, awaiting results. Medicine team following for medical management, they are greatly appreciated Infectious disease consulted for antibiotic management, their input is appreciated Wound care nurse following for assisting in dressing changes. She is to remain nonweightbearing to the right lower extremity Will continue to elevate foot for postoperative edema control. Dressings to remain in place with wound VAC undisturbed. Plans to change wound VAC on 02/14/2024. I will continue to follow while in house. Jason Lewis Jr. D.P.M. [facility] [place] [phone]
[2024-02-10] MEDS: Morphine 2 MG/ML Syringe IV ×2 (17:16→20:36)
[2024-02-10] MEDS: Montelukast 10 MG Tablet PO (20:41)
[2024-02-10 21:31] LABS: Bedside Glucose 287 mg/dL (74-106)
[2024-02-11] MEDS: 0.9% Saline Lock 10 ML Syringe IV ×3 (00:01→20:42)
[2024-02-11] MEDS: Ampicillin/Sulbactam 3 GM in 0.9% Normal Saline (100mL MB+) 100 ML IV ×4 (00:01→17:00)
[2024-02-11 02:32] VITALS: BP 117/57; PULSE 89; RESP 14; TEMP 36.8; O2SAT 97
[2024-02-11 04:02] VITALS: BP 120/63; PULSE 92; RESP 16; TEMP 36.8; O2SAT 95
[2024-02-11] MEDS: Morphine 2 MG/ML Syringe IV ×5 (04:22→20:42)
[2024-02-11 05:45] VITALS: BMI 30.8
[2024-02-11] MEDS: Liothyronine 5 MCG Tablet 12.5 MCG PO (05:59)
[2024-02-11] MEDS: Levothyroxine 112 MCG Tablet PO (05:59)
[2024-02-11] MEDS: Insulin Lispro 100 UNIT/ML INSULN.PEN SC ×4 (06:26→21:58)
[2024-02-11 06:34] LABS: Hematocrit 32.1 % (37-47); Hemoglobin 10.2 g/dL (12.0-15.0); Mean Corp Hgb Conc 31.8 g/dL (32-36); Mean Corpuscular Hgb 30.3 pg (27.0-32.0); Mean Corpuscular Volume 95.3 fL (81-99); Mean Platelet Vol. 10.4 fl (6.2-12.0); POSITIVE COUNT YES; POSITIVE MORPHOLOGY YES; Platelet Count 332 K/mm3 (150-450); RBC Distribution Width CV 14.3 % (11.6-14.6); Red Blood Count 3.37 M/mm3 (4.2-5.4)
[2024-02-11 06:38] LABS: Differential Indicated MANUAL DIFF
[2024-02-11 06:53] LABS: Bedside Glucose 232 mg/dL (74-106)
[2024-02-11 06:56] LABS: Anion Gap 9 (5-15); BUN 9 mg/dL (7-18); BUN/Creat Ratio 16.4 RATIO (10-20); Chloride 103 mmol/L (98-107); Creatinine, Serum 0.55 mg/dL (0.55-1.02); EST Glomerular Filtration Rate 121 mL/min (>60); Est Glom Filt Rate - Afr Amer 146 mL/min (>60); Estimated Creatinine Clearance 130.64 ml/min; Glucose 245 mg/dL (74-106); Potassium 3.6 mmol/L (3.5-5.1); Sodium Level 132 mmol/L (136-145)
[2024-02-11 08:05] LABS: Lymphocyte 14 % (19-41); Metamyelocyte 2 % (0-1); Monocyte 5 % (0-10); Neutrophil-Band 1 % (0-5); Neutrophil-Segmented 78 % (47-70); Platelet Estimate ADEQUATE (ADEQ); Red Cell Morphology NORM C+C NORMAL (NORM C&C); Total Cells Counted 100 (MANUAL DIFF)
[2024-02-11 08:06] LABS: Absolute Lymphocyte Count 2.79 X10^3/uL (0.83-4.51); Absolute Neutrophil Count 15.7 X10^3/uL (2.0-7.7)
[2024-02-11] MEDS: Loratadine 10 MG Tablet PO (09:53)
[2024-02-11] MEDS: metFORMIN (XR) 500 MG Tablet 1000 MG PO ×2 (09:53→17:04)
[2024-02-11] MEDS: Juven (unflavored) Packet 1 PACKET PO (09:53)
[2024-02-11] MEDS: Insulin Glargine-YFGN 100 UNIT/ML Pen 10 UNIT SC (09:54)
[2024-02-11] MEDS: Enoxaparin 40 MG/0.4 ML Syringe SC (09:55)
[2024-02-11] MEDS: Ibuprofen 400 MG Tablet PO ×2 (09:55→21:53)
[2024-02-11 10:00] VITALS: BP 113/58; PULSE 99; RESP 16; TEMP 37.3; O2SAT 96
[2024-02-11] MEDS: DAPTOMYCIN IV (10:09)
[2024-02-11] MEDS: NORMAL SALINE 0.9% IV (10:09)
--- NOTE | 2024-02-11 10:15 | WOUNDNOTE ---
Wound VAC dressing in place to the right foot. good seal noted at 125mmHg low continuous suction. Dr Lewis aware that the wound VAC was alarming last evening. nursing applied a new trac pad and cut the hole larger. this seemed to be the issue. daughter is concerned about the right 2nd toe being red and edematous. Dr Lewis aware and will assess this afternoon. reapplied kerlix and the ARMANDO wraps making sure to pad well under the VAC drape. pt tolerated well. plan for VAC change Wednesday per Dr Lewis. dressing is to remain intact until then.
--- NOTE | 2024-02-11 10:45 | CASEMGMT ---
There was discussion of patient maybe going to a senior care. Patient's insurance provided SW/BERTA TRUJILLO with a list of in network SNF's and home health care agencies. SW met with patient and her daughter. Introduced self and role at [facility]. Both confirmed they are considering the options. SW provided them with the list of home health care agencies and fci facilities that patient's insurance provided. ABDOUL also gave them the pamphlet for the [facility] Navigator website. Patient will be at [facility] through the weekend so they will continue to think about options. Elena Soriano COLORING ROOM WORKER JOHN
[2024-02-11 11:39] LABS: Bedside Glucose 292 mg/dL (74-106)
--- NOTE | 2024-02-11 12:51 | PN_ITS ---
Subjective Subjective Patient seen and examined. She had no complaints today and had an uneventful night. Pain is well-controlled. Review of systems otherwise negative. She has made hemodynamically stable. Objective Data Objective Data Vital Signs: Vital Signs Temp Pulse Resp BP Pulse Ox O2 Del Method 99.1 F 99 16 113/58 L 96 Room Air 02/11/24 10:00 02/11/24 10:00 02/11/24 10:00 02/11/24 10:00 02/11/24 10:00 02/11/24 10:00 Oxygen Delivery Method Room Air Weight: 202 lb 13.204 oz Body Mass Index (BMI) 30.8 Intake & Output: Intake and Output for Last 24 Hours 02/09/24 02/10/24 02/11/24 23:59 23:59 23:59 Intake Total 3829 / 3829 2445 / 2445 224 / 224 Balance 3829 / 3829 2445 / 2445 224 / 224 Lab / Micro Data 02/11/24 06:09 02/11/24 06:09 Labs: Laboratory Results - last 24 hr 02/08/24 06:18: Diff Path Review Reviewed 02/09/24 05:51: Diff Path Review Reviewed 02/10/24 16:21: POC Glucose 211 H 02/10/24 20:44: POC Glucose 287 H 02/11/24 06:09: WBC 20.0 H, RBC 3.37 L, Hgb 10.2 L, Hct 32.1 L, MCV 95.3, MCH 30.3, MCHC 31.8 L, RDW Std Deviation 50.0 H, RDW Coeff of Amos 14.3, Plt Count 332, MPV 10.4, Neut % (Auto) Not Reportable, Absolute Neuts (auto) 15.7 H, Absolute Lymphs (auto) 2.79, Total Counted 100, Neutrophils % (Manual) 78 H, Band Neutrophils % 1, Lymphocytes % (Manual) 14 L, Monocytes % (Manual) 5, M etamyelocytes % 2 H, Diff Path Review May foll, Platelet Estimate ADEQUATE, RBC Morphology NORM C+C, Sodium 132 L, Potassium 3.6, Chloride 103, Carbon Dioxide 20.0 L, Anion Gap 9, BUN 9, Creatinine 0.55, Estim Creat Clear Calc 130.64, Est GFR (MDRD) Af Amer 146, Est GFR (MDRD) Non-Af 121, BUN/Creatinine Ratio 16.4, G lucose 245 H, Calcium 8.0 L 02/11/24 06:25: POC Glucose 232 H 02/11/24 11:13: POC Glucose 292 H Micro: Microbiology 02/10/24 13:40 Wound - Right Foot Gram Stain - Final 02/10/24 13:40 Wound - Right Foot Wound Culture - Preliminary Staphylococcus aureus 02/08/24 08:46 Blood Culture (Wb) - Right Hand Blood Culture - Final Meth. resistant Staph. aureus 02/08/24 11:00 Wound - Right Foot Gram Stain - Final 02/08/24 11:00 Wound - Right Foot Wound Culture - Final Meth. resistant Staph. aureus 02/06/24 11:46 Urine, Clean Catch Urine Culture - Final Meth. resistant Staph. aureus 02/06/24 11:29 Mucosa - Nose SARS-CoV-2, Influenza & RSV (PCR) - Final Physical Exam Const alert, oriented x3 and no apparent distress Constitutional Narrative: frail General Appearance: cooperative HEENT normocephalic, head/scalp atraumatic and moist oral mucous membranes Eyes PERRL and EOMs intact bilaterally Neck no lymphadenopathy, supple and no JVD Lymph Lymphatic: no lymphadenopathy noted and no lymphedema noted Resp normal respiratory effort, normal air movement, no retractions, no use of accessory muscles and clear to auscultation bilaterally Cardio regular rate, regular rhythm, S1 normal heart sound, S2 normal heart sound and no murmurs GI normal to inspection, nondistended, normoactive bowel sounds, soft to palpation, non-tender and non-distended Extremity Extremity Narrative: Right foot wrapped in bandage General Extremity: no tenderness to palpation of joints or extremities Skin Skin Narrative: as under extremity General Skin Exam: no breakdown Neuro CN's II-XII intact bilaterally, moves all extremities, no focal motor deficits, no sensory deficits noted and deep tendon reflexes 2+ bilaterally Sensorium / Orientation: awake and alert Motor Exam: strength 5/5 throughout and general weakness Psych thought process normal, cooperative and affect normal Appearance: appropriate Assessment & Plan Assessment/Plan (1) Hypokalemia: (2) Hyponatremia: (3) Diabetes mellitus type 2, uncontrolled: PLAN: Plan #intractable nausea and vomiting * resolving. likely due to her uncontrolled diabetes mellitus. Blood glucose was elevated. She had an elevated anion gap which has now arresolved * A1C is elevated at 11.8 * on sitagliptin and metformin. She has not been taking her sitagliptin because she cannot afford it. She is now on Metformin extended release 1000mg bid. * ISS> Accuchloren AYONS' * Per case management, patient can get Lantus through insurance for $35 per month. * currently on lantus 10 units daily. * #Poorly controlled diabetes mellitus: * as above * A1C is 11.2. * Unable to afford her insulin and Januvia as prescribed. * Currently on metformin extended release 1000 mg twice daily. Case management on board as stated above. * Will discharge on subcu Lantus as insurance will cover for $35 a month. Case management as noted above. #Right foot cellulitis in setting of right Charcot foot. * s/p incision and drainage with wide debridement of the necrotic tissue of the right foot. * wbc is 20 today. * continue IV daptomycin * ID and podiatry on board. * #Gram positive bacteremia * She was on bactrim for MRSA UTI. She is allergic to vancomycin, so per discussion with ID today, patient started on IV daptomycin. * WBC slightly is 20 today * blood cultures growing gram positive cocci. * MRSA PCR is positive. * ID on board * #UTI: * Urine cultures growing MRSA. * on IV daptomycin * * #ANion gap metabolic acidosis * likely due to starvation ketosis and mild DKA * now resolved. * #Hyponatremia * was likely a pseudohyponatremia due to hyperglycemia. Resolving. Sodium is 132 today. Will monitor * #Intractable back pain: * Her back pain has improved slightly today. * She did have MRI of the lumbar spine which showed scoliosis and degenerative disc disease as well as spondylosis, laminectomies and L4-L5 and L5-S1 and multilevel neural foraminal narrowing with no evidence of discitis osteomyelitis. * PT/OT on board. Continue current pain meds. #Hypokalemia: Resolved. #Hypothyroidism: on synthroid DVT prophylaxis: lovenox Code status: full code Charges/Coding Visit Charges Inpatient E&M: 28890 Subs Hosp L2
--- NOTE | 2024-02-11 13:18 | PN_ITS ---
Subjective Subjective Patient seen resting in bed with foot elevated. States that she is feeling somewhat better and lunch was just delivered during our discussion. States that she did work with physical therapy on her nonweightbearing status but was not able to go far as she is still weak. Denies pain to the right foot. Objective Data Objective Data Vital Signs: Vital Signs Temp Pulse Resp BP Pulse Ox O2 Del Method 99.1 F 99 16 113/58 L 96 Room Air 02/11/24 10:00 02/11/24 10:00 02/11/24 10:00 02/11/24 10:00 02/11/24 10:00 02/11/24 10:00 Oxygen Delivery Method Room Air Weight: 92 kg Body Mass Index (BMI) 30.8 Intake & Output: Intake and Output for Last 24 Hours 02/09/24 02/10/24 02/11/24 23:59 23:59 23:59 Intake Total 3829 / 3829 2445 / 2445 224 / 224 Balance 3829 / 3829 2445 / 2445 224 / 224 Lab / Micro Data 02/11/24 06:09 02/11/24 06:09 Labs: Laboratory Results - last 24 hr 02/09/24 05:51: Diff Path Review Reviewed 02/10/24 16:21: POC Glucose 211 H 02/10/24 20:44: POC Glucose 287 H 02/11/24 06:09: WBC 20.0 H, RBC 3.37 L, Hgb 10.2 L, Hct 32.1 L, MCV 95.3, MCH 30.3, MCHC 31.8 L, RDW Std Deviation 50.0 H, RDW Coeff of Amos 14.3, Plt Count 332, MPV 10.4, Neut % (Auto) Not Reportable, Absolute Neuts (auto) 15.7 H, Absolute Lymphs (auto) 2.79, Total Counted 100, Neutrophils % (Manual) 78 H, Band Neutrophils % 1, Lymphocytes % (Manual) 14 L, Monocytes % (Manual) 5, M etamyelocytes % 2 H, Diff Path Review May , Platelet Estimate ADEQUATE, RBC Morphology NORM C+C, Sodium 132 L, Potassium 3.6, Chloride 103, Carbon Dioxide 20.0 L, Anion Gap 9, BUN 9, Creatinine 0.55, Estim Creat Clear Calc 130.64, Est GFR (MDRD) Af Amer 146, Est GFR (MDRD) Non-Af 121, BUN/Creatinine Ratio 16.4, G lucose 245 H, Calcium 8.0 L 02/11/24 06:25: POC Glucose 232 H 02/11/24 11:13: POC Glucose 292 H Micro: Microbiology 02/10/24 13:40 Wound - Right Foot Gram Stain - Final 02/10/24 13:40 Wound - Right Foot Wound Culture - Preliminary Staphylococcus aureus 02/08/24 08:46 Blood Culture (Wb) - Right Hand Blood Culture - Final Meth. resistant Staph. aureus 02/08/24 11:00 Wound - Right Foot Gram Stain - Final 02/08/24 11:00 Wound - Right Foot Wound Culture - Final Meth. resistant Staph. aureus 02/06/24 11:46 Urine, Clean Catch Urine Culture - Final Meth. resistant Staph. aureus 02/06/24 11:29 Mucosa - Nose SARS-CoV-2, Influenza & RSV (PCR) - Final Physical Exam Const Constitutional Narrative: Generally ill-appearing. Extremity Extremity Narrative: Right Lower Extremity: Vascular: DP and PT pulses palpable. CFT < 4 seconds to digits. Increased temperature overlying dorsal foot and medial foot. Hair growth diminished to digits. Neurologic: Absent protective sensation secondary to Diabetic Peripheral Polyneuropathy. Musculoskeletal: Muscle strength 5 of 5 age-appropriate. No pain to palpation about the ulcerative site or dorsal foot. Charcot foot deformity noted. Dermatological: Incision distal anterior leg extending to dorsal foot with sutures intact. Incision medial foot with sutures intact. Soft tissue defect dorsal medial foot measuring 5.5 cm x 1.5 cm x 1.0 cm with wound VAC in place. Surgical dressings in place. 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 POD #1 Right Lower Extremity: Incision distal anterior leg extending to dorsal foot with sutures intact. Incision medial foot with sutures intact. Soft tissue defect dorsal medial foot measuring 5.5 cm x 1.5 cm x 1.0 cm with wound VAC in place. Surgical dressings in place. Due to overnight issue with VAC she did have a new hose changed and VAC is working again. WBC has improved some down to 20.0 from 22.3 Blood cultures demonstrate MRSA Wound culture of new abscess region demonstrates Staph aureus protein A PCR positive; MRSA PCR positive. Cultures MRSA Surgical tissue cultures demonstrate: Staph aureus. Currently on IV Daptomycin and Unasyn, per ID Medicine team following for medical management Infectious disease consulted for antibiotic management Wound care nurse following for assisting in dressing changes. She is to remain nonweightbearing to the right lower extremity. May utilize walker or knee scooter to maintain compliance. Will continue to elevate foot for postoperative edema control. Dressings to remain in place with wound VAC undisturbed. Plans to change wound VAC on 02/14/2024. I will continue to follow while in house. Jason Lewis Jr. D.P.M. [facility] [phone]
[2024-02-11 13:56] LABS: Pathologist Review Reviewed
[2024-02-11 14:02] LABS: Pathologist Review Reviewed
--- NOTE | 2024-02-11 14:48 | PN.ID_ITS ---
Physical Exam Narrative Feeling ok, pain controlled, no fever, no n/v/d. 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 MRI did not show lumbar osteo/discitis. No veg on TTE. Cont dapto and unasyn. Podiatry following, OR 02/10/[address] Lewis for I&D. Will order repeat bcxs. 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
[2024-02-11 16:00] VITALS: BP 126/64; PULSE 98; RESP 16; TEMP 37.2; O2SAT 97
[2024-02-11 17:08] LABS: Bedside Glucose 221 mg/dL (74-106)
[2024-02-11 20:31] VITALS: BP 122/61; PULSE 106; RESP 16; TEMP 37; O2SAT 96
[2024-02-11] MEDS: Baclofen 10 MG Tablet PO (21:53)
[2024-02-11] MEDS: Montelukast 10 MG Tablet PO (21:53)
[2024-02-11 23:00] LABS: Bedside Glucose 260 mg/dL (74-106)
[2024-02-12] MEDS: Ampicillin/Sulbactam 3 GM in 0.9% Normal Saline (100mL MB+) 100 ML IV ×4 (00:33→17:05)
[2024-02-12 00:34] VITALS: BP 118/58; PULSE 93; RESP 16; TEMP 36.7; O2SAT 95
[2024-02-12 03:18] VITALS: BMI 31.0
[2024-02-12] MEDS: Liothyronine 5 MCG Tablet 12.5 MCG PO (05:20)
[2024-02-12] MEDS: Levothyroxine 112 MCG Tablet PO (05:22)
[2024-02-12 05:25] VITALS: BP 121/62; PULSE 88; RESP 16; TEMP 36.5; O2SAT 98
[2024-02-12 06:37] LABS: Hemoglobin 10.1 g/dL (12.0-15.0); Mean Corp Hgb Conc 32.6 g/dL (32-36); Mean Corpuscular Hgb 31.3 pg (27.0-32.0); POSITIVE COUNT YES; POSITIVE MORPHOLOGY YES; Platelet Count 413 K/mm3 (150-450); RBC Distribution Width CV 14.1 % (11.6-14.6); RBC Distribution Width SD 49.7 fl (35.1-43.9); Red Blood Count 3.23 M/mm3 (4.2-5.4); White Blood Count 18.6 K/mm3 (4.4-11.0)
[2024-02-12] MEDS: Insulin Lispro 100 UNIT/ML INSULN.PEN SC ×4 (06:40→21:12)
[2024-02-12 06:46] LABS: Differential Indicated MANUAL DIFF
[2024-02-12] MEDS: 0.9% Saline Lock 10 ML Syringe IV ×2 (06:52→12:01)
[2024-02-12] MEDS: Morphine 2 MG/ML Syringe IV ×4 (06:52→21:20)
[2024-02-12 07:00] LABS: Bedside Glucose 214 mg/dL (74-106)
[2024-02-12 07:25] LABS: Neutrophil-Band 3 % (0-5); Neutrophil-Segmented 81 % (47-70); Total Cells Counted 100 (MANUAL DIFF)
[2024-02-12 07:26] LABS: Absolute Neutrophil Count 15.6 X10^3/uL (2.0-7.7); Eosinophil 2 % (0-5); Lymphocyte 9 % (19-41); Monocyte 5 % (0-10); Myelocyte 2 % (0-0); Promyelocyte 1 % (0-0)
[2024-02-12 07:27] LABS: Absolute Lymphocyte Count 1.67 X10^3/uL (0.83-4.51)
[2024-02-12 07:35] LABS: Anion Gap 6 (5-15); BUN 7 mg/dL (7-18); BUN/Creat Ratio 11.7 RATIO (10-20); Calcium,Total 8.1 mg/dL (8.5-10.1); Chloride 104 mmol/L (98-107); EST Glomerular Filtration Rate 109 mL/min (>60); Est Glom Filt Rate - Afr Amer 132 mL/min (>60); Estimated Creatinine Clearance 120.14 ml/min; Glucose 248 mg/dL (74-106); Potassium 3.5 mmol/L (3.5-5.1); Sodium Level 136 mmol/L (136-145)
[2024-02-12] MEDS: metFORMIN (XR) 500 MG Tablet 1000 MG PO ×2 (08:45→17:06)
[2024-02-12] MEDS: Ibuprofen 400 MG Tablet PO ×2 (10:25→21:11)
[2024-02-12] MEDS: Insulin Glargine-YFGN 100 UNIT/ML Pen 10 UNIT SC (10:25)
[2024-02-12] MEDS: Loratadine 10 MG Tablet PO (10:26)
[2024-02-12] MEDS: Enoxaparin 40 MG/0.4 ML Syringe SC (10:27)
[2024-02-12] MEDS: DAPTOMYCIN IV (10:31)
[2024-02-12] MEDS: NORMAL SALINE 0.9% IV (10:31)
[2024-02-12 11:25] VITALS: BP 124/66; PULSE 98; RESP 16; TEMP 37.4; O2SAT 94
[2024-02-12 11:47] LABS: Bedside Glucose 277 mg/dL (74-106)
[2024-02-12] MEDS: 0.9% Normal Saline (1000mL) 1,000 ML 15 ML IV (11:57)
--- NOTE | 2024-02-12 13:01 | NURSING ---
This RN taking over care at this time
--- NOTE | 2024-02-12 13:18 | PN_ITS ---
Subjective Subjective Patient seen and examined. She has no active complaints. Review of symptoms otherwise negative. She did have a mild fever 99.4F this morning. WBC has trended down slightly today to 18.6. Objective Data Objective Data Vital Signs: Vital Signs Temp Pulse Resp BP Pulse Ox O2 Del Method 99.4 F H 98 16 124/66 H 94 Room Air 02/12/24 11:25 02/12/24 11:25 02/12/24 11:25 02/12/24 11:25 02/12/24 11:25 02/12/24 11:25 Oxygen Delivery Method Room Air Weight: 204 lb 2.369 oz Body Mass Index (BMI) 31.0 Intake & Output: Intake and Output for Last 24 Hours 02/10/24 02/11/24 02/12/24 23:59 23:59 23:59 Intake Total 2445 / 2445 613 / 613 489 / 489 Balance 2445 / 2445 613 / 613 489 / 489 Lab / Micro Data 02/12/24 06:15 02/12/24 06:15 Labs: Laboratory Results - last 24 hr 02/10/24 06:52: Diff Path Review Reviewed 02/11/24 06:09: Diff Path Review Reviewed 02/11/24 16:50: POC Glucose 221 H 02/11/24 21:56: POC Glucose 260 H 02/12/24 06:15: WBC 18.6 H, RBC 3.23 L, Hgb 10.1 L, Hct 31.0 L, MCV 96.0, MCH 31.3, MCHC 32.6, RDW Std Deviation 49.7 H, RDW Coeff of Amos 14.1, Plt Count 413, MPV 10.0, Neut % (Auto) Not Reportable, Absolute Neuts (auto) 15.6 H, Absolute Lymphs (auto) 1.67, Total Counted 100, Neutrophils % (Manual) 81 H, Band Neutrophils % 3, Lymphocytes % (Manual) 9 L, Monocytes % (Manual) 5, Eosinophils % (Manual) 2, Myelocytes % 2 H, Promyelocytes % 1 H, Diff Path Review May , Sodium 136, Potassium 3.5, Chloride 104, Carbon Dioxide 26.0, Anion Gap 6, BUN 7, Creatinine 0.60, Estim Creat Clear Calc 120.14, Est GFR (MDRD) Af Amer 132, Est GFR (MDRD) Non-Af 109, BUN/Creatinine Ratio 11.7, Glucose 248 H, Calcium 8.1 L 02/12/24 06:38: POC Glucose 214 H 02/12/24 11:29: POC Glucose 277 H Micro: Microbiology 02/10/24 13:40 Wound - Right Foot Gram Stain - Final 02/10/24 13:40 Wound - Right Foot Wound Culture - Preliminary Meth. resistant Staph. aureus Gram positive felix 02/08/24 08:46 Blood Culture (Wb) - Right Hand Blood Culture - Final Meth. resistant Staph. aureus 02/08/24 11:00 Wound - Right Foot Gram Stain - Final 02/08/24 11:00 Wound - Right Foot Wound Culture - Final Meth. resistant Staph. aureus 02/06/24 11:46 Urine, Clean Catch Urine Culture - Final Meth. resistant Staph. aureus 02/06/24 11:29 Mucosa - Nose SARS-CoV-2, Influenza & RSV (PCR) - Final Physical Exam Const alert, oriented x3 and no apparent distress Constitutional Narrative: frail General Appearance: cooperative HEENT normocephalic, head/scalp atraumatic and moist oral mucous membranes Eyes PERRL and EOMs intact bilaterally Neck no lymphadenopathy, supple and no JVD Lymph Lymphatic: no lymphadenopathy noted and no lymphedema noted Resp normal respiratory effort, normal air movement, no retractions, no use of accessory muscles and clear to auscultation bilaterally Cardio regular rate, regular rhythm, S1 normal heart sound, S2 normal heart sound and no murmurs GI normal to inspection, nondistended, normoactive bowel sounds, soft to palpation, non-tender and non-distended Extremity Extremity Narrative: Right foot wrapped in bandage General Extremity: no tenderness to palpation of joints or extremities Skin Skin Narrative: as under extremity General Skin Exam: no breakdown Neuro CN's II-XII intact bilaterally, moves all extremities, no focal motor deficits, no sensory deficits noted and deep tendon reflexes 2+ bilaterally Sensorium / Orientation: awake and alert Motor Exam: strength 5/5 throughout and general weakness Psych thought process normal, cooperative and affect normal Appearance: appropriate Assessment & Plan Assessment/Plan (1) Hypokalemia: (2) Hyponatremia: (3) Diabetes mellitus type 2, uncontrolled: PLAN: Plan #intractable nausea and vomiting * resolved. likely due to her uncontrolled diabetes mellitus. Blood glucose was elevated. She had an elevated anion gap which has now arresolved * A1C is elevated at 11.2 * on sitagliptin and metformin. She has not been taking her sitagliptin because she cannot afford it. She is now on Metformin extended release 1000mg bid. * ISS> Accuchecks ACHS' * Per case management, patient can get Lantus through insurance for $35 per month. * currently on lantus 10 units daily. * #Poorly controlled diabetes mellitus: * as above * A1C is 11.2. * Unable to afford her insulin and Januvia as prescribed. * Currently on metformin extended release 1000 mg twice daily. Case management on board as stated above. * Will discharge on subcu Lantus as insurance will cover for $35 a month. Case management as noted above. #Right foot cellulitis in setting of right Charcot foot. * s/p incision and drainage with wide debridement of the necrotic tissue of the right foot. * wbc is down to 18.6 today. * continue IV daptomycin * ID and podiatry on board. * repeat blood cultures pending. * #MRSA bacteremia * on IV daptomycin. * ID on board. * #UTI: * Urine cultures growing MRSA. * on IV daptomycin * #Intractable back pain: * Her back pain has improved * She did have MRI of the lumbar spine which showed scoliosis and degenerative disc disease as well as spondylosis, laminectomies and L4-L5 and L5-S1 and multilevel neural foraminal narrowing with no evidence of discitis osteomyelitis. * PT/OT on board. Continue current pain meds. #Hypokalemia: Resolved. #Hypothyroidism: on synthroid DVT prophylaxis: lovenox Code status: full code Disposition: * Patient was initially agreeable to placement but now wants to go home with home health. ID to help determine duration of antibiotics on Wednesday. Charges/Coding Visit Charges Inpatient E&M: 68914 Subs Hosp L2
--- NOTE | 2024-02-12 14:38 | CASEMGMT ---
Social Work SW spoke w/pt and daughter in room in regard to discharge plan. Pt plans to go home. Pt's daughter Erika explained she is arranging the home with the bed on the main floor, making things accessible for pt. She states this is how they are going to have to do it as the nursing homes are in [place] and it's too far away. Daughter was concerned that the physician would say pt has to go to SNF, based on the PT notes. SW explained if pt's daughter feels can manage pt's care at home then they can choose to go home, daughter states understanding. Daughter feels she can help pt maneuver at home, has helped her often to stand and pivot. Pt states that she is to have Medicaid as of 02/21, was not sure if it is straight Medicaid or a managed Medicaid. Pt's daughter states the also could use a wheelchair. ABDOUL updated CM, SW remains available should plan change. CM aware of pt plan to go home. SW remains available should plans change. JOSE Jean Baptiste
[2024-02-12 16:37] LABS: Bedside Glucose 215 mg/dL (74-106)
[2024-02-12 17:03] VITALS: BP 112/55; PULSE 93; RESP 18; TEMP 36.8; O2SAT 100
[2024-02-12 20:48] VITALS: BP 133/56; PULSE 99; RESP 14; TEMP 37.6; O2SAT 96
[2024-02-12] MEDS: Baclofen 10 MG Tablet PO (21:11)
[2024-02-12] MEDS: Acetaminophen 325 MG Tablet 650 MG PO (21:11)
[2024-02-12] MEDS: Montelukast 10 MG Tablet PO (21:11)
[2024-02-12 21:38] LABS: Bedside Glucose 267 mg/dL (74-106)
[2024-02-13] MEDS: Ampicillin/Sulbactam 3 GM in 0.9% Normal Saline (100mL MB+) 100 ML IV ×5 (00:55→23:06)
[2024-02-13 01:01] VITALS: BP 116/59; PULSE 82; RESP 14; TEMP 36.6; O2SAT 97
[2024-02-13 04:37] LABS: Hematocrit 29.9 % (37-47); Hemoglobin 9.7 g/dL (12.0-15.0); Mean Corp Hgb Conc 32.4 g/dL (32-36); Mean Corpuscular Volume 95.5 fL (81-99); Mean Platelet Vol. 9.7 fl (6.2-12.0); POSITIVE COUNT YES; POSITIVE MORPHOLOGY YES; Platelet Count 448 K/mm3 (150-450); RBC Distribution Width CV 14.2 % (11.6-14.6); RBC Distribution Width SD 49.3 fl (35.1-43.9); Red Blood Count 3.13 M/mm3 (4.2-5.4); White Blood Count 15.7 K/mm3 (4.4-11.0)
[2024-02-13 04:53] VITALS: BMI 30.9
[2024-02-13 04:59] LABS: Anion Gap 5 (5-15); BUN 9 mg/dL (7-18); BUN/Creat Ratio 18.3 RATIO (10-20); Calcium,Total 8.5 mg/dL (8.5-10.1); Chloride 106 mmol/L (98-107); Creatinine, Serum 0.49 mg/dL (0.55-1.02); Differential Indicated MANUAL DIFF; EST Glomerular Filtration Rate 136 mL/min (>60); Est Glom Filt Rate - Afr Amer 165 mL/min (>60); Estimated Creatinine Clearance 146.95 ml/min; Glucose 206 mg/dL (74-106); Potassium 3.3 mmol/L (3.5-5.1); Sodium Level 138 mmol/L (136-145)
[2024-02-13 05:43] LABS: Anisocytosis 2+; Hypochromasia 1+; Lymphocyte 12 % (19-41); Metamyelocyte 2 % (0-1); Microcytosis 1+; Monocyte 1 % (0-10); Myelocyte 1 % (0-0); Neutrophil-Band 2 % (0-5); Neutrophil-Segmented 82 % (47-70); Platelet Estimate ADEQUATE (ADEQ); Polychromasia 1+; Total Cells Counted 100 (MANUAL DIFF)
[2024-02-13 05:44] LABS: Platelet Morphology GIANT
[2024-02-13 05:49] LABS: Absolute Lymphocyte Count 1.88 X10^3/uL (0.83-4.51); Absolute Neutrophil Count 13.2 X10^3/uL (2.0-7.7)
[2024-02-13 06:00] VITALS: BP 130/70; PULSE 88; RESP 16; TEMP 36.8; O2SAT 98
[2024-02-13] MEDS: Levothyroxine 112 MCG Tablet PO (06:02)
[2024-02-13] MEDS: Liothyronine 5 MCG Tablet 12.5 MCG PO (06:02)
[2024-02-13] MEDS: Baclofen 10 MG Tablet PO (06:04)
[2024-02-13] MEDS: Insulin Lispro 100 UNIT/ML INSULN.PEN SC ×4 (06:14→21:32)
[2024-02-13 06:33] LABS: Bedside Glucose 216 mg/dL (74-106)
[2024-02-13 09:22] VITALS: BP 136/68; PULSE 99; RESP 18; TEMP 37; O2SAT 96
[2024-02-13] MEDS: Potassium Chloride Oral Tablet 20 MEQ 40 MEQ PO (09:23)
[2024-02-13] MEDS: Morphine 2 MG/ML Syringe IV ×3 (09:23→17:19)
[2024-02-13] MEDS: 0.9% Saline Lock 10 ML Syringe IV ×3 (09:23→17:19)
[2024-02-13] MEDS: Ibuprofen 400 MG Tablet PO ×2 (09:24→21:32)
[2024-02-13] MEDS: metFORMIN (XR) 500 MG Tablet 1000 MG PO ×2 (09:24→17:19)
[2024-02-13] MEDS: Loratadine 10 MG Tablet PO (09:24)
[2024-02-13] MEDS: Enoxaparin 40 MG/0.4 ML Syringe SC (09:25)
[2024-02-13] MEDS: Insulin Glargine-YFGN 100 UNIT/ML Pen 10 UNIT SC (09:25)
[2024-02-13] MEDS: NORMAL SALINE 0.9% IV (10:49)
[2024-02-13] MEDS: DAPTOMYCIN IV (10:49)
[2024-02-13 11:35] LABS: Bedside Glucose 244 mg/dL (74-106)
--- NOTE | 2024-02-13 14:16 | PN_ITS ---
Subjective Subjective Patient seen and examined. She had no complaints. Daughter was by her bedside. Review of systems was otherwise negative. WBC is further down to 15.7 today. Potassium is 3.3 today. Objective Data Objective Data Vital Signs: Vital Signs Temp Pulse Resp BP Pulse Ox O2 Del Method 98.6 F 99 18 136/68 H 96 Room Air 02/13/24 09:22 02/13/24 09:22 02/13/24 09:22 02/13/24 09:22 02/13/24 09:22 02/13/24 09:22 Oxygen Delivery Method Room Air Weight: 203 lb 11.314 oz Body Mass Index (BMI) 30.9 Intake & Output: Intake and Output for Last 24 Hours 02/11/24 02/12/24 02/13/24 23:59 23:59 23:59 Intake Total 613 / 613 1013 / 1013 901.75 / 901.75 Balance 613 / 613 1013 / 1013 901.75 / 901.75 Lab / Micro Data 02/13/24 03:45 02/13/24 03:45 Labs: Laboratory Results - last 24 hr 02/12/24 16:17: POC Glucose 215 H 02/12/24 21:08: POC Glucose 267 H 02/13/24 03:45: WBC 15.7 H, RBC 3.13 L, Hgb 9.7 L, Hct 29.9 L, MCV 95.5, MCH 31.0, MCHC 32.4, RDW Std Deviation 49.3 H, RDW Coeff of Amos 14.2, Plt Count 448, MPV 9.7, Neut % (Auto) Not Reportable, Absolute Neuts (auto) 13.2 H, Absolute Lymphs (auto) 1.88, Total Counted 100, Neutrophils % (Manual) 82 H, Band Neutrophils % 2, Lymphocytes % (Manual) 12 L, Monocytes % (Manual) 1, M etamyelocytes % 2 H, Myelocytes % 1 H, Diff Path Review May foll, Platelet Estimate ADEQUATE, Plt Morphology Comment GIANT, Polychromasia 1+, Hypochromasia 1+, Anisocytosis 2+, Microcytosis 1+, Sodium 138, Potassium 3.3 L, Chloride 106, Carbon Dioxide 27.0, Anion Gap 5, BUN 9, Creatinine 0.49 L, Estim Creat Clear Calc 146.95, Est GFR (MDRD) Af Amer 165, Est GFR (MDRD) Non-Af 136, BUN/Creatinine Ratio 18.3, Glucose 206 H, Calcium 8.5 02/13/24 06:00: POC Glucose 216 H 02/13/24 11:10: POC Glucose 244 H Micro: Microbiology 02/11/24 13:30 Blood Culture (Wb) - Left Hand Blood Culture - Preliminary No growth in 48 hours. 02/10/24 13:40 Wound - Right Foot Gram Stain - Final 02/10/24 13:40 Wound - Right Foot Wound Culture - Final Meth. resistant Staph. aureus Corynebacterium striatum 02/10/24 13:40 Wound - Right Foot Anaerobic Culture - Final No anaerobic bacteria isolated. 02/08/24 08:46 Blood Culture (Wb) - Right Hand Blood Culture - Final Meth. resistant Staph. aureus 02/08/24 11:00 Wound - Right Foot Gram Stain - Final 02/08/24 11:00 Wound - Right Foot Wound Culture - Final Meth. resistant Staph. aureus 02/06/24 11:46 Urine, Clean Catch Urine Culture - Final Meth. resistant Staph. aureus 02/06/24 11:29 Mucosa - Nose SARS-CoV-2, Influenza & RSV (PCR) - Final Physical Exam Const alert, oriented x3 and no apparent distress Constitutional Narrative: frail General Appearance: cooperative HEENT normocephalic, head/scalp atraumatic and moist oral mucous membranes Eyes PERRL and EOMs intact bilaterally Neck no lymphadenopathy, supple and no JVD Lymph Lymphatic: no lymphadenopathy noted and no lymphedema noted Resp normal respiratory effort, normal air movement, no retractions, no use of accessory muscles and clear to auscultation bilaterally Cardio regular rate, regular rhythm, S1 normal heart sound, S2 normal heart sound and no murmurs GI normal to inspection, nondistended, normoactive bowel sounds, soft to palpation, non-tender and non-distended Extremity Extremity Narrative: Right foot wrapped in bandage General Extremity: no tenderness to palpation of joints or extremities Skin Skin Narrative: as under extremity Neuro CN's II-XII intact bilaterally, moves all extremities, no focal motor deficits, no sensory deficits noted and deep tendon reflexes 2+ bilaterally Sensorium / Orientation: awake and alert Motor Exam: strength 5/5 throughout and general weakness Psych thought process normal, cooperative and affect normal Appearance: appropriate Assessment & Plan Assessment/Plan (1) Hypokalemia: (2) Hyponatremia: (3) Diabetes mellitus type 2, uncontrolled: PLAN: Plan #intractable nausea and vomiting * resolved. likely due to her uncontrolled diabetes mellitus. Blood glucose was elevated. She had an elevated anion gap which has now aresolved * A1C is elevated at 11.2 * on sitagliptin and metformin. She has not been taking her sitagliptin because she cannot afford it. She is now on Metformin extended release 1000mg bid. * ISS. Accucheckphani AYONS' * Per case management, patient can get Lantus through insurance for $35 per month. Lantus to be prescribed on discharge. * currently on lantus 10 units daily. * #Hypokalemia: K is 3.3. Will replace and trend. #Poorly controlled diabetes mellitus: * as above * A1C is 11.2. * Unable to afford her insulin and Januvia as prescribed. * Currently on metformin extended release 1000 mg twice daily. Case management on board as stated above. * Will discharge on subcu Lantus as insurance will cover for $35 a month. Case management as noted above. #Right foot cellulitis in setting of right Charcot foot. * s/p incision and drainage with wide debridement of the necrotic tissue of the right foot. * wbc is down to 15.7 today. * continue IV daptomycin * ID and podiatry on board. * repeat blood cultures pending. * #MRSA bacteremia * on IV daptomycin. * ID on board. * #UTI: * Urine cultures growing MRSA. * on IV daptomycin * #Intractable back pain: * Her back pain has improved * She did have MRI of the lumbar spine which showed scoliosis and degenerative disc disease as well as spondylosis, laminectomies and L4-L5 and L5-S1 and multilevel neural foraminal narrowing with no evidence of discitis osteomyelitis. * PT/OT on board. Continue current pain meds. #Hypokalemia: Resolved. #Hypothyroidism: on synthroid DVT prophylaxis: lovenox Code status: full code Disposition: * Patient was initially agreeable to placement but now wants to go home with home health. * ID to help determine duration of antibiotics on Wednesday. Charges/Coding Visit Charges Inpatient E&M: 53446 Subs Hosp L2
[2024-02-13 15:20] VITALS: BP 140/78; PULSE 104; RESP 18; TEMP 37.4; O2SAT 97
[2024-02-13 17:51] LABS: Bedside Glucose 205 mg/dL (74-106)
[2024-02-13 21:20] VITALS: BP 137/73; PULSE 108; RESP 18; TEMP 38.3; O2SAT 95
[2024-02-13] MEDS: Acetaminophen 325 MG Tablet 650 MG PO (21:31)
[2024-02-13] MEDS: Montelukast 10 MG Tablet PO (21:33)
[2024-02-13 22:38] LABS: Bedside Glucose 237 mg/dL (74-106)
[2024-02-13 22:40] VITALS: PULSE 95; TEMP 37.1
[2024-02-14 03:15] VITALS: BMI 31.1
[2024-02-14 03:41] VITALS: BP 129/65; PULSE 85; RESP 18; TEMP 36.8; O2SAT 97
[2024-02-14] MEDS: Insulin Lispro 100 UNIT/ML INSULN.PEN SC ×3 (06:18→23:17)
[2024-02-14] MEDS: Liothyronine 5 MCG Tablet 12.5 MCG PO (06:18)
[2024-02-14] MEDS: Levothyroxine 112 MCG Tablet PO (06:18)
[2024-02-14] MEDS: Ampicillin/Sulbactam 3 GM in 0.9% Normal Saline (100mL MB+) 100 ML IV ×4 (06:18→23:19)
[2024-02-14] MEDS: Morphine 2 MG/ML Syringe IV ×3 (06:35→23:10)
[2024-02-14] MEDS: 0.9% Saline Lock 10 ML Syringe IV ×2 (06:36→14:22)
[2024-02-14 06:50] LABS: Bedside Glucose 220 mg/dL (74-106)
[2024-02-14 07:11] LABS: Absolute Lymphocyte Count 2.07 X10^3/uL (0.83-4.51); Basophil# 0.12 X10^3/uL; Basophil% 0.8 % (0-1); Eosinophil# 0.46 X10^3/uL; Eosinophils% 3.1 % (0-5); Hematocrit 33.2 % (37-47); Hemoglobin 10.5 g/dL (12.0-15.0); Lymphocyte # 2.07 X10^3/ul (0.83-4.51); Lymphocyte % 14.1 % (19-41); Mean Corp Hgb Conc 31.6 g/dL (32-36); Mean Corpuscular Hgb 30.3 pg (27.0-32.0); Mean Corpuscular Volume 95.7 fL (81-99); Mean Platelet Vol. 9.8 fl (6.2-12.0); Monocyte# 0.65 X10^3/uL; Monocyte% 4.4 % (0-10); NRBC Flagged by Analyzer 0 % (0-5); Neutrophil % 74.9 % (47-70); Platelet Count 526 K/mm3 (150-450); RBC Distribution Width SD 49.1 fl (35.1-43.9); Red Blood Count 3.47 M/mm3 (4.2-5.4); White Blood Count 14.7 K/mm3 (4.4-11.0)
[2024-02-14 07:43] LABS: Anion Gap 6 (5-15); BUN 10 mg/dL (7-18); BUN/Creat Ratio 18.8 RATIO (10-20); Calcium,Total 8.9 mg/dL (8.5-10.1); Chloride 105 mmol/L (98-107); Creatinine, Serum 0.53 mg/dL (0.55-1.02); EST Glomerular Filtration Rate 125 mL/min (>60); Est Glom Filt Rate - Afr Amer 151 mL/min (>60); Estimated Creatinine Clearance 136.29 ml/min; Glucose 234 mg/dL (74-106); Potassium 3.9 mmol/L (3.5-5.1); Sodium Level 137 mmol/L (136-145)
--- NOTE | 2024-02-14 07:57 | PCM.PROGNOTE ---
Subjective Subjective Patient seen early this a.m. resting in bed with foot elevated. Denies foot pain. States back pain is improving. States she did spike fever last night but this has improved by early this morning. Denies further complaints. Objective Data Objective Data Vital Signs: Vital Signs Temp Pulse Resp BP Pulse Ox O2 Del Method 98.2 F 85 18 129/65 H 97 Room Air 02/14/24 03:41 02/14/24 03:41 02/14/24 03:41 02/14/24 03:41 02/14/24 03:41 02/14/24 03:41 Oxygen Delivery Method Room Air Weight: 93 kg Body Mass Index (BMI) 31.1 Intake & Output: Intake and Output for Last 24 Hours 02/12/24 02/13/24 02/14/24 23:59 23:59 23:59 Intake Total 1013 / 1013 1013.75 / 1013.75 112 / 112 Balance 1013 / 1013 1013.75 / 1013.75 112 / 112 Lab / Micro Data 02/14/24 06:21 02/14/24 06:21 Labs: Laboratory Results - last 24 hr 02/13/24 11:10: POC Glucose 244 H 02/13/24 17:17: POC Glucose 205 H 02/13/24 21:28: POC Glucose 237 H 02/14/24 06:17: POC Glucose 220 H 02/14/24 06:21: WBC 14.7 H, RBC 3.47 L, Hgb 10.5 L, Hct 33.2 L, MCV 95.7, MCH 30.3, MCHC 31.6 L, RDW Std Deviation 49.1 H, RDW Coeff of Amos 14.0, Plt Count 526 H, MPV 9.8, Immature Gran % (Auto) 2.700 H, Neut % (Auto) 74.9 H, Lymph % (Auto) 14.1 L, [place] % (Auto) 4.4, Eos % (Auto) 3.1, Baso % (Auto) 0.8, Absolute Neuts (auto) 11.0 H, Absolute Lymphs (auto) 2.07, Nucleated RBC % 0, Sodium 137, Potassium 3.9, Chloride 105, Carbon Dioxide 26.0, Anion Gap 6, BUN 10, Creatinine 0.53 L, Estim Creat Clear Calc 136.29, Est GFR (MDRD) Af Amer 151, Est GFR (MDRD) Non-Af 125, BUN/Creatinine Ratio 18.8, Glucose 234 H, Calcium 8.9 Micro: Microbiology 02/11/24 13:30 Blood Culture (Wb) - Left Hand Blood Culture - Preliminary 02/10/24 13:40 Wound - Right Foot Gram Stain - Final 02/10/24 13:40 Wound - Right Foot Wound Culture - Final Meth. resistant Staph. aureus Corynebacterium striatum 02/10/24 13:40 Wound - Right Foot Anaerobic Culture - Final No anaerobic bacteria isolated. 02/08/24 08:46 Blood Culture (Wb) - Right Hand Blood Culture - Final Meth. resistant Staph. aureus 02/08/24 11:00 Wound - Right Foot Gram Stain - Final 02/08/24 11:00 Wound - Right Foot Wound Culture - Final Meth. resistant Staph. aureus 02/06/24 11:46 Urine, Clean Catch Urine Culture - Final Meth. resistant Staph. aureus 02/06/24 11:29 Mucosa - Nose SARS-CoV-2, Influenza & RSV (PCR) - Final Physical Exam Const alert, oriented x3 and no apparent distress HEENT normocephalic Eyes General Eye: normal appearance of both eyes Neck General: normal visual inspection Lymph Lymphatic: no lymphadenopathy noted and no lymphedema noted Resp normal respiratory effort Cardio regular rate and regular rhythm Extremity normal capillary refill and no calf tenderness Extremity Narrative: Right Lower Extremity: Vascular: DP and PT pulses palpable. CFT < 4 seconds to digits. Increased temperature overlying dorsal foot and medial foot. Hair growth diminished to digits. Neurologic: Absent protective sensation secondary to Diabetic Peripheral Polyneuropathy. Musculoskeletal: Muscle strength 5 of 5 age-appropriate. No pain to palpation about the ulcerative site or dorsal foot. Charcot foot deformity noted. Dermatological: Incision distal anterior leg extending to dorsal foot with sutures intact. Incision medial foot with sutures intact. Soft tissue defect dorsal medial foot measuring 5.5 cm x 2.5 cm x 1.0 cm with wound VAC in place. Surgical dressings in place. Skin skin turgor normal and no jaundice Neuro moves all extremities Assessment & Plan Assessment/Plan (1) Cellulitis of right lower limb: (2) Foot abscess, right: (3) Type 2 diabetes mellitus with diabetic polyneuropathy: QUALIFIERS: Diabetes mellitus fci insulin use: with intermission coordinator use Qualified Code(s): E11.42 - Type 2 diabetes mellitus with diabetic polyneuropathy; Z79.4 - intermission coordinator (current) use of insulin (4) Charcot's joint of right foot: PLAN: Plan Patient seen and evaluated Underwent I&D with wide debridement of necrotic tissue and application of wound VAC right foot 02/10/2024. POD #4 Right Lower Extremity: Incision distal anterior leg extending to dorsal foot with sutures intact. Incision medial foot with sutures intact. Soft tissue defect dorsal medial foot measuring 5.5 cm x 2.5 cm x 1.0 cm with wound VAC in place. Wound VAC and dressings removed today and site was inspected. Sutures are intact at incision sites. Tissue appears healthy. Erythema of the dorsal foot has resolved. There is still some postoperative swelling. Dressings were reapplied with Betadine soaked Adaptic over the incision sites. And wound VAC was applied over the ulceration site and inflated to 125 mmHg without leak. WBC has continued to trend down, currently at 14.7 Blood cultures demonstrate MRSA Wound culture of new abscess region demonstrates Staph aureus protein A PCR positive; MRSA PCR positive. Cultures MRSA Surgical tissue cultures demonstrate: Staph aureus (MRSA). Currently on IV Daptomycin and Unasyn, per ID Medicine team following for medical management Infectious disease consulted for antibiotic management Wound care nurse following for assisting in dressing changes. She is to remain nonweightbearing to the right lower extremity. May utilize walker or knee scooter to maintain compliance. Will continue to elevate foot for postoperative edema control. Plans to change wound VAC on Wednesday02/16/2024. I will continue to follow while in house. Jason Lewis Jr. D.P.M. [facility] [phone]
--- NOTE | 2024-02-14 09:33 | WOUNDNOTE ---
wound photo: right foot
--- NOTE | 2024-02-14 09:33 | WOUNDNOTE ---
wound photo: right foot
--- NOTE | 2024-02-14 09:34 | WOUNDNOTE ---
wound photo: right foot
--- NOTE | 2024-02-14 09:36 | CASEMGMT ---
BERTA TRUJILLO update by wound nurse regarding concern for wound vac at discharge. Wound nurse concern may not get approval through insurance. BERTA TRUJILLO in to discuss discharge planning with patient. BERTA TRUJILLO spoke with patient regarding concern for wound vac approval. BERTA TRUJILLO discussed possible SNF at [facility] for continued recommend treatment and safe transition to home after patient is eligible for RM on February. Patient is understanding of concerns for care and is agreeable to have referral sent to [facility]. Patient had no further questions or concerns. BERTA TRUJILLO updated wound nurse and SW. CM will continue to follow this patient and plan for a safe discharge.
[2024-02-14 09:41] VITALS: BP 133/78; PULSE 90; RESP 16; TEMP 37.2; O2SAT 98
--- NOTE | 2024-02-14 09:43 | CASEMGMT ---
Social Work Per RNCM, pt is agreeable to placement at [facility] rehab. DC assistant professor of music updated and to send referral. WHITNEY You
[2024-02-14] MEDS: metFORMIN (XR) 500 MG Tablet 1000 MG PO ×2 (10:14→19:00)
[2024-02-14] MEDS: Loratadine 10 MG Tablet PO (10:15)
[2024-02-14] MEDS: Ibuprofen 400 MG Tablet PO ×2 (10:15→23:09)
[2024-02-14] MEDS: Insulin Glargine-YFGN 100 UNIT/ML Pen 20 UNIT SC (10:15)
[2024-02-14] MEDS: Enoxaparin 40 MG/0.4 ML Syringe SC (10:16)
--- NOTE | 2024-02-14 10:44 | CASEMGMT ---
Addendum entered by Sultana Obrien 02/14/24 12:56: [facility] declined referral. Sultana Obrien DC Planning Asst. Original Note: Discharge Planning [facility]. Sultana Obrien DC Planning Asst.
[2024-02-14 11:27] LABS: Pathologist Review Reviewed
[2024-02-14 11:29] LABS: Pathologist Review Reviewed
[2024-02-14] MEDS: DAPTOMYCIN IV (11:29)
[2024-02-14] MEDS: NORMAL SALINE 0.9% IV (11:29)
[2024-02-14 12:02] LABS: Bedside Glucose 265 mg/dL (74-106)
[2024-02-14] MEDS: 0.9% Normal Saline (1000mL) 1,000 ML 15 ML IV (12:21)
--- NOTE | 2024-02-14 12:25 | RAD_ITS ---
INDICATION: pain swelling EXAMINATION/TECHNIQUE: X-RAY - LEFT XR Foot Min 3 Views 3 VIEWS COMPARISON: FINDINGS: SOFT TISSUES: Mild soft tissue swelling without subcutaneous gas. No radiopaque foreign body. BONES/JOINTS: No acute fracture or subluxation.. Normal alignment. Preservation of the joint space.. No sclerotic or destructive changes observed. RAD/Foot min 3 Views IMPRESSION: No acute bony injury. Electronically Signed: Pawan London DO at 21:12 EDT ,
--- NOTE | 2024-02-14 13:04 | PN.ID_ITS ---
Physical Exam Narrative Still back pain, c/o fever, some nausea. 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 MRI did not show lumbar osteo/discitis. No veg on TTE. Cont dapto and unasyn. Podiatry following, OR 02/10/[address] Lewis for I&D. Repeat bcx today and agree with GALO. Given difficulty with access, ok for picc placement even if bcx haven't cleared. Will follow, d/w Dr. Huang (3) Type 2 diabetes mellitus with diabetic polyneuropathy: QUALIFIERS: Diabetes mellitus alf insulin use: with intermediate manager use Qualified Code(s): E11.42 - Type 2 diabetes mellitus with diabetic polyneuropathy; Z79.4 - half-way (current) use of insulin
--- NOTE | 2024-02-14 13:27 | CASEMGMT ---
Social Work SW spoke with Phoebe from [facility]. Phoebe has assisted pt in completing Medicaid application. Waiting on determination from [facility] but per Phoebe, pt will likely qualify for Medicaid effective 02/21. At that time pt may stop paying for [employer] health insurance and be insured by Medicaid only. [facility] is unable to accept pt as insurance will be effective for less than a week and they do not accept Medicaid. RNWHITNEY Gifford
--- NOTE | 2024-02-14 14:30 | CASEMGMT ---
BERTA TRUJILLO updated by ABDOUL that [facility] declined patient. BERTA TRUJILLO in to discuss discharge planning. Daughter at bedside. BERTA TRUJILLO discussed LTACH at discharge. Patient and daughter agreeable and prefer [facility]. Patient and daughter had no further questions. BERTA TRUJILLO updated DC financial planning adviser to send referral to [facility]. CM will continue to follow this patient and plan for a safe discharge.
--- NOTE | 2024-02-14 14:40 | RAD_ITS ---
STUDY: X-RAY - LEFT ANKLE REASON FOR EXAM: Female, 58 years old. pain swelling TECHNIQUE: 3 view(s) of the ankle. COMPARISON: None. FINDINGS: Normal visualized distal tibia and fibula. Normal medial and lateral malleoli. Normal tibiotalar articulation and ankle mortise. Normal visualized talus and calcaneus. The visualized subtalar,, calcaneocuboid and tarsal articulations are normal. Talonavicular spurring Diffuse bimalleolar soft tissue swelling RAD/Ankle min 3 Views IMPRESSION: Bimalleolar soft tissue swelling without evidence for acute fracture or definitive evidence for acute osteomyelitis at this time. If infection is suspected clinically MRI would be useful for more definitive evaluation Electronically Signed: David Thompson MD at 21:43 EDT ,
[2024-02-14 15:41] VITALS: BP 122/78; PULSE 90; RESP 14; TEMP 36.6; O2SAT 97
--- NOTE | 2024-02-14 16:09 | CASEMGMT ---
Discharge Planning Referral sent to [facility]. Sultana Obrien DC Planning Asst.
[2024-02-14 17:44] LABS: Bedside Glucose 150 mg/dL (74-106)
--- NOTE | 2024-02-14 20:50 | PN.HOSP_ITS ---
Reason for Visit Reason for Visit: Nausea and vomiting Subjective Subjective Unfortunately, repeat blood cultures remain positive despite antibiotic therapy. I did discuss with the patient that she would need GALO to rule out endocarditis. Daughter at the bedside and they both voiced understanding. Her daughter is concerned that she feels her toe may be not looking as good as she had expected but patient feels like it is improving. They also report some left ankle swelling and some redness. Patient denies any pain. No other specific complaints at this time. Objective Data Objective Data Vital Signs: Vital Signs Temp Pulse Resp BP Pulse Ox O2 Del Method 98 F 90 14 122/78 H 97 Room Air 02/14/24 15:41 02/14/24 15:41 02/14/24 15:41 02/14/24 15:41 02/14/24 15:41 02/14/24 15:41 Oxygen Delivery Method Room Air Weight: 93 kg Body Mass Index (BMI) 31.1 Intake & Output: Intake and Output for Last 24 Hours 02/12/24 02/13/24 02/14/24 23:59 23:59 23:59 Intake Total 1013 / 1013 1013.75 / 1013.75 1481 / 1481 Output Total 1000 / 1000 Balance 1013 / 1013 1013.75 / 1013.75 481 / 481 Lab / Micro Data 02/14/24 06:21 02/14/24 06:21 Labs: Laboratory Results - last 24 hr 02/12/24 06:15: Diff Path Review Reviewed 02/13/24 03:45: Diff Path Review Reviewed 02/13/24 21:28: POC Glucose 237 H 02/14/24 06:17: POC Glucose 220 H 02/14/24 06:21: WBC 14.7 H, RBC 3.47 L, Hgb 10.5 L, Hct 33.2 L, MCV 95.7, MCH 30.3, MCHC 31.6 L, RDW Std Deviation 49.1 H, RDW Coeff of Amos 14.0, Plt Count 526 H, MPV 9.8, Immature Gran % (Auto) 2.700 H, Neut % (Auto) 74.9 H, Lymph % (Auto) 14.1 L, [place] % (Auto) 4.4, Eos % (Auto) 3.1, Baso % (Auto) 0.8, Absolute Neuts (auto) 11.0 H, Absolute Lymphs (auto) 2.07, Nucleated RBC % 0, Sodium 137, Potassium 3.9, Chloride 105, Carbon Dioxide 26.0, Anion Gap 6, BUN 10, C reatinine 0.53 L, Estim Creat Clear Calc 136.29, Est GFR (MDRD) Af Amer 151, Est GFR (MDRD) Non-Af 125, BUN/Creatinine Ratio 18.8, Glucose 234 H, Calcium 8.9 02/14/24 11:35: POC Glucose 265 H 02/14/24 16:44: POC Glucose 150 H Micro: Microbiology 02/08/24 08:46 Blood Culture (Wb) - Right Hand Blood Culture - Final Meth. resistant Staph. aureus 02/11/24 13:30 Blood Culture (Wb) - Left Hand Bacteria Detection (PCR) - Final Staphylococcus aureus mecA Resistance Marker 02/11/24 13:30 Blood Culture (Wb) - Left Hand Blood Culture - Preliminary 02/10/24 13:40 Wound - Right Foot Gram Stain - Final 02/10/24 13:40 Wound - Right Foot Wound Culture - Final Meth. resistant Staph. aureus Corynebacterium striatum 02/10/24 13:40 Wound - Right Foot Anaerobic Culture - Final No anaerobic bacteria isolated. 02/08/24 11:00 Wound - Right Foot Gram Stain - Final 02/08/24 11:00 Wound - Right Foot Wound Culture - Final Meth. resistant Staph. aureus 02/06/24 11:46 Urine, Clean Catch Urine Culture - Final Meth. resistant Staph. aureus 02/06/24 11:29 Mucosa - Nose SARS-CoV-2, Influenza & RSV (PCR) - Final Physical Exam Const alert, oriented x3, no apparent distress and well nourished; Negative for average body habitus or healthy appearing Constitutional Narrative: Obese, middle-aged, white female, lying in bed, daughter at bedside, patient appears older than stated age, currently does not appear toxic and appears comfortable HEENT head/scalp atraumatic and moist oral mucous membranes Head and Scalp: normocephalic Eyes EOMs intact bilaterally Eyes Narrative: No scleral icterus Neck supple Neck Narrative: Trachea midline Resp normal respiratory effort, no retractions, no use of accessory muscles and clear to auscultation bilaterally Auscultation: Negative for rales, rhonchi or wheezes Cardio regular rate, regular rhythm, S1 normal heart sound, S2 normal heart sound, no murmurs, no rub, no gallops and no clicks GI normal to inspection, nondistended, normoactive bowel sounds, soft to palpation and non-tender Extremity Extremity Narrative: Left ankle is swollen with purple outlining area but significant retraction of erythematous area appears to be noted, ankle does appear swollen but not tender to palpation, no other significant edema noted, no clubbing or cyanosis Skin Skin Narrative: Second digit of right toe appears to be mildly erythematous and swollen but does not feel warm to touch to me at this time, images of foot reviewed and they appear to be healing Neuro oriented x3, moves all extremities, no focal motor deficits and No no sensory deficits noted Neuro Narrative: Decree sensation bilateral lower extremities due to neuropathy Speech: speech normal Psych affect normal Psych Narrative: Very pleasant, makes good eye contact, interacts appropriately Assessment & Plan Assessment/Plan (1) Foot abscess, right: (2) Cellulitis of right lower limb: (3) Bacteremia: PLAN: Plan MRSA bacteremia secondary to right foot cellulitis/wound infection/R Charcot foot -Postop day 4 I&D with wide debridement of necrotic tissue per podiatry -Continue IV daptomycin -Initial echocardiogram was unremarkable however repeat blood cultures were positive -GALO requested and to be performed tomorrow -Repeat blood cultures drawn today -MRI of the spine did not show any discitis or osteo -continue wound VAC per podiatry--> next VAC changes for 02/16/2024 -Nonweightbearing right lower extremity -ID is following -PICC placement today however this line will need exchange prior to discharge and this was discussed with patient MRSA UTI -Suspect related to seeding from blood -If GALO is negative will obtain ultrasound versus CT of the abdomen and pelvis to look at kidneys -Continue IV Dapto Left ankle erythema and swelling -Check plain films -Low suspicion for septic arthritis as patient has no pain Intractable nausea and vomiting -Resolved -Suspect related to uncontrolled diabetes and possible gastroparesis Uncontrolled DM-2 -Patient had not been on insulin due to cost -We have found that she may be able to get Lantus for $35 a month which is amenable to her so we will prescribe Lantus at discharge -Increase Lantus dose to 20 mg daily due to ongoing elevated blood sugars -Hemoglobin A1c is 11.2--> will likely need basal and bolus insulin at discharge -Restart oral metformin at discharge -Continue SSI -Cardiac/carb controlled diet Hypokalemia -Resolved -Has intermittently been a problem -will continue to monitor Chronic anemia -Hemoglobin is relatively stable -Will continue to monitor Intractable back pain -Much better today -MRI ruled out osteomyelitis and discitis -Continue PT/OT -Continue pain medication Hypothyroidism -Continue home Synthroid -Continue Liothyronine Narcolepsy -Restart home medication at discharge DVT prophylaxis -Continue subcu Lovenox CODE STATUS Full code Charges/Coding Visit Charges Inpatient E&M: 54648 Subs Hosp L3
[2024-02-14 23:00] VITALS: BP 140/74; PULSE 107; RESP 18; TEMP 37.5; O2SAT 95
[2024-02-14] MEDS: Montelukast 10 MG Tablet PO (23:09)
[2024-02-14] MEDS: Acetaminophen 325 MG Tablet 650 MG PO (23:09)
[2024-02-15] VITALS (10 sets, daily range): BP systolic 113–138; BP diastolic 60–77; PULSE 80–103; RESP 10–18; TEMP 36.4–36.9; O2SAT 93–100; BMI 30.4
[2024-02-15 01:07] LABS: Bedside Glucose 201 mg/dL (74-106)
[2024-02-15] MEDS: 0.9% Saline Lock 10 ML Syringe IV ×5 (02:31→18:20)
[2024-02-15] MEDS: Morphine 2 MG/ML Syringe IV ×4 (02:31→17:49)
[2024-02-15] MEDS: Ampicillin/Sulbactam 3 GM in 0.9% Normal Saline (100mL MB+) 100 ML IV ×3 (05:44→18:23)
--- NOTE | 2024-02-15 05:55 | EKG12_ITS ---
Test Reason : PREOP Blood Pressure : / mmHG Vent. Rate : 083 BPM Atrial Rate : 083 BPM P-R Int : 160 ms QRS Dur : 082 ms QT Int : 420 ms P-R-T Axes : 038 023 027 degrees QTc Int : 493 ms Normal sinus rhythm Anterior infarct , age undetermined -Possible V lead reversal Abnormal ECG Confirmed by Jason Quintero ([id number]), technical editor JAQUELINE CONNER ([id number]) on 02/16/2024 5:26:39 AM Referred By: Confirmed By:Jason Quintero
[2024-02-15 06:00] LABS: Basophil# 0.13 X10^3/uL; Basophil% 0.9 % (0-1); Eosinophil# 0.36 X10^3/uL; Eosinophils% 2.6 % (0-5); Hematocrit 34.3 % (37-47); Hemoglobin 10.7 g/dL (12.0-15.0); Lymphocyte % 19.2 % (19-41); Mean Corp Hgb Conc 31.2 g/dL (32-36); Mean Corpuscular Hgb 30.1 pg (27.0-32.0); Mean Corpuscular Volume 96.6 fL (81-99); Mean Platelet Vol. 9.5 fl (6.2-12.0); Monocyte# 0.61 X10^3/uL; Monocyte% 4.3 % (0-10); NRBC Flagged by Analyzer 0 % (0-5); Neutrophil # 9.95 X10^3/uL (2.7-7.7); Neutrophil % 70.9 % (47-70); Platelet Count 565 K/mm3 (150-450); RBC Distribution Width CV 13.7 % (11.6-14.6); RBC Distribution Width SD 48.8 fl (35.1-43.9); Red Blood Count 3.55 M/mm3 (4.2-5.4); White Blood Count 14.1 K/mm3 (4.4-11.0)
[2024-02-15 06:24] LABS: Anion Gap 4 (5-15); BUN 12 mg/dL (7-18); BUN/Creat Ratio 19.1 RATIO (10-20); Calcium,Total 9.2 mg/dL (8.5-10.1); Chloride 101 mmol/L (98-107); Creatinine, Serum 0.63 mg/dL (0.55-1.02); EST Glomerular Filtration Rate 103 mL/min (>60); Est Glom Filt Rate - Afr Amer 125 mL/min (>60); Estimated Creatinine Clearance 113.32 ml/min; Glucose 183 mg/dL (74-106); Potassium 3.7 mmol/L (3.5-5.1); Sodium Level 134 mmol/L (136-145)
[2024-02-15] MEDS: Insulin Lispro 100 UNIT/ML INSULN.PEN SC ×3 (06:51→21:30)
[2024-02-15 07:11] LABS: Bedside Glucose 174 mg/dL (74-106)
[2024-02-15 07:35] LABS: Hemoglobin A1c 11.3 % (3.8-5.6)
--- NOTE | 2024-02-15 10:00 | ECHOTEE_ITS ---
Version 2 Reason For Study: PERSISTANT MRSA BACTEREMIA Medication GALO probe 6VT-D (SN [id number]) passed with minimal difficulty. No complications were noted. [id number] gargled and swallowed. Cetacaine Topical [place] given X3 orally. Versed 3 mg given slow IVP. Fentanyl 50 mcg given slow IVP. Left Ventricle Normal LV size. The estimated ejection fraction is 45 %. Right Ventricle Normal RV size. Normal systolic function. Atria Normal atrial septum. The left and right atria are normal. Mitral Valve There is no vegetation seen on the mitral valve. There is no mitral valve stenosis. No mitral valve insufficiency. Tricuspid Valve No vegetations identified. There is no tricuspid stenosis. Mild tricuspid valve insufficiency. Aortic Valve Trisinus/trileaflet aortic valve. There is no aortic valvular vegetation. There is no aortic stenosis. No aortic valve insufficiency. Pulmonic Valve There is no vegetation on the pulmonic valve. ECHO/Echo Transesophageal (GALO) Interpretation Summary The estimated ejection fraction is 45 %. No evidence of infective endocarditis Ordering Physician: Siobhan Huang Referring Physician: Cuong Barros Performed By: Deanna Bates, RDCS, RVT
--- NOTE | 2024-02-15 11:00 | WOUNDNOTE ---
Pt currently off the unit for testing.
[2024-02-15] MEDS: DAPTOMYCIN IV (11:30)
[2024-02-15] MEDS: NORMAL SALINE 0.9% IV (11:30)
[2024-02-15] MEDS: Enoxaparin 40 MG/0.4 ML Syringe SC (11:39)
[2024-02-15 12:11] LABS: Bedside Glucose 152 mg/dL (74-106)
[2024-02-15 16:15] LABS: Bedside Glucose 172 mg/dL (74-106)
--- NOTE | 2024-02-15 17:34 | PCM.PN.HOSP ---
Reason for Visit Reason for Visit: Nausea and vomiting Subjective Subjective No significant issues overnight. IV access has become an issue and PICC was not placed yesterday however plan is to place today. GALO was performed. Objective Data Objective Data Vital Signs: Vital Signs Temp Pulse Resp BP Pulse Ox O2 Del Method 97.5 F L 99 18 138/76 H 93 Room Air 02/15/24 15:35 02/15/24 15:35 02/15/24 15:35 02/15/24 15:35 02/15/24 15:35 02/15/24 15:35 Oxygen Delivery Method Room Air Weight: 90.8 kg Body Mass Index (BMI) 30.4 Intake & Output: Intake and Output for Last 24 Hours 02/13/24 02/14/24 02/15/24 23:59 23:59 23:59 Intake Total 1013.75 / 1013.75 1593 / 1593 719.5 / 719.5 Output Total 1000 / 1000 Balance 1013.75 / 1013.75 593 / 593 719.5 / 719.5 Lab / Micro Data 02/15/24 05:20 02/15/24 05:20 Labs: Laboratory Results - last 24 hr 02/14/24 16:44: POC Glucose 150 H 02/14/24 23:16: POC Glucose 201 H 02/15/24 05:20: WBC 14.1 H, RBC 3.55 L, Hgb 10.7 L, Hct 34.3 L, MCV 96.6, MCH 30.1, MCHC 31.2 L, RDW Std Deviation 48.8 H, RDW Coeff of Amos 13.7, Plt Count 565 H, MPV 9.5, Immature Gran % (Auto) 2.100 H, Neut % (Auto) 70.9 H, Lymph % (Auto) 19.2, [place] % (Auto) 4.3, Eos % (Auto) 2.6, Baso % (Auto) 0.9, Absolute Neuts (auto) 10.0 H, Absolute Lymphs (auto) 2.70, Nucleated RBC % 0, Sodium 134 L, Potassium 3.7, Chloride 101, Carbon Dioxide 29.0, Anion Gap 4 L, BUN 12, Creatinine 0.63, Estim Creat Clear Calc 113.32, Est GFR (MDRD) Af Amer 125, Est GFR (MDRD) Non-Af 103, BUN/Creatinine Ratio 19.1, Glucose 183 H, Hemoglobin A1c 11.3 H, Calcium 9.2, TSH 1.300 02/15/24 06:50: POC Glucose 174 H 02/15/24 11:35: POC Glucose 152 H 02/15/24 15:37: POC Glucose 172 H Micro: Microbiology 02/14/24 09:58 Blood Culture (Wb) - Right Hand Blood Culture - Preliminary 02/11/24 13:30 Blood Culture (Wb) - Left Hand Bacteria Detection (PCR) - Final Staphylococcus aureus mecA Resistance Marker 02/11/24 13:30 Blood Culture (Wb) - Left Hand Blood Culture - Final Meth. resistant Staph. aureus 02/08/24 08:46 Blood Culture (Wb) - Right Hand Blood Culture - Final Meth. resistant Staph. aureus 02/10/24 13:40 Wound - Right Foot Gram Stain - Final 02/10/24 13:40 Wound - Right Foot Wound Culture - Final Meth. resistant Staph. aureus Corynebacterium striatum 02/10/24 13:40 Wound - Right Foot Anaerobic Culture - Final No anaerobic bacteria isolated. 02/08/24 11:00 Wound - Right Foot Gram Stain - Final 02/08/24 11:00 Wound - Right Foot Wound Culture - Final Meth. resistant Staph. aureus 02/06/24 11:46 Urine, Clean Catch Urine Culture - Final Meth. resistant Staph. aureus 02/06/24 11:29 Mucosa - Nose SARS-CoV-2, Influenza & RSV (PCR) - Final Radiography Diagnostic Testing: Radiology Impression Foot X-Ray 02/14/24 12:25 IMPRESSION: No acute bony injury. Electronically Signed: Pawan London DO at 21:12 EDT , Ankle X-Ray 02/14/24 14:40 IMPRESSION: Bimalleolar soft tissue swelling without evidence for acute fracture or definitive evidence for acute osteomyelitis at this time. If infection is suspected clinically MRI would be useful for more definitive evaluation Electronically Signed: David Thompson MD at 21:43 EDT , Transesophageal Echocardiogram 02/15/24 10:00 Interpretation Summary The estimated ejection fraction is 45 %. No evidence of infective endocarditis Ordering Physician: Siobhan Huang Referring Physician: Cuong Barros Performed By: Deanna Bates, MARLA, RVT Physical Exam Const alert, oriented x3, no apparent distress and well nourished; Negative for average body habitus or healthy appearing Constitutional Narrative: Obese, middle-aged, white female, lying in bed, daughter at bedside, patient appears older than stated age, affect is a bit flatter today however patient does not appear toxic, looks tired, has just returned from GALO General Appearance: cooperative HEENT normocephalic, head/scalp atraumatic and moist oral mucous membranes Eyes Eyes Narrative: No scleral icterus Resp normal respiratory effort, normal air movement, no retractions, no use of accessory muscles and clear to auscultation bilaterally Auscultation: Negative for rales, rhonchi or wheezes Cardio regular rate, regular rhythm, S1 normal heart sound, S2 normal heart sound, no murmurs, no rub, no gallops and no clicks GI normal to inspection, nondistended, normoactive bowel sounds, soft to palpation, non-tender and non-distended Extremity no clubbing, cyanosis or edema Extremity Narrative: Left ankle is swollen and erythema continues to be improved however patient is now developing some tenderness in the lateral ankle, right lower extremity images reviewed in the computer from wound care and appear to be healing well, second digit appears to be improving upon review of images from initial to now. Neuro oriented x3, moves all extremities and no focal motor deficits Speech: speech normal Psych thought process normal, cooperative and affect normal Appearance: appropriate Assessment & Plan Assessment/Plan (1) Foot abscess, right: (2) Cellulitis of right lower limb: (3) Bacteremia: PLAN: Plan MRSA bacteremia secondary to right foot cellulitis/wound infection/R Charcot foot -Postop day 5 I&D with wide debridement of necrotic tissue per podiatry -Continue IV daptomycin -Initial echocardiogram was unremarkable however repeat blood cultures were positive -GALO was negative for any valvular vegetations or signs of IE and an EF of 45% -Blood cultures from 01/25/2024 already popping positive -Repeat blood cultures in a.m. -MRI of the spine did not show any discitis or osteo -check MRI of left ankle -continue wound VAC per podiatry--> next VAC changes for 02/16/2024 -Nonweightbearing right lower extremity -ID is following -PICC line placed today and this will need to be changed prior to discharge if patient goes with IV antibiotics MRSA UTI -Suspect related to seeding from blood -Check CT of the abdomen with negative GALO -Continue IV Dapto Left ankle erythema and swelling -Plain films unremarkable for any bony abnormalities -Check MRI with and without IV contrast -Patient with some mild pain on the lateral malleolus today Uncontrolled DM-2 -Patient had not been on insulin due to cost -We have found that she may be able to get Lantus for $35 a month which is amenable to her so we will prescribe Lantus at discharge -Fasting blood sugars down to 183 today -Increase Lantus to 28 units -Add 6 units 3 times daily of prandial insulin -Hemoglobin A1c is 11.2--> will likely need basal and bolus insulin at discharge -Restart oral metformin at discharge -Continue SSI -Cardiac/carb controlled diet Hypokalemia -Remains stable Chronic anemia -Hemoglobin is relatively stable -Will continue to monitor Intractable back pain -Much better today -MRI ruled out osteomyelitis and discitis -Continue PT/OT -Continue pain medication Hypothyroidism -Continue home Synthroid -Continue Liothyronine Narcolepsy -Restart home medication at discharge DVT prophylaxis -Continue subcu Lovenox CODE STATUS Full code Charges/Coding Visit Charges Inpatient E&M: 85020 Subs Hosp L2
--- NOTE | 2024-02-15 17:38 | CT_ITS ---
STUDY: CT ABDOMEN AND PELVIS WITHOUT CONTRAST REASON FOR EXAM: Female, 58 years old. MRSA UTI RADIATION DOSAGE (If Supplied By Facility): CTDIvol = ( 17.48 ) mGy, DLP = ( 1048.24 ) mGycm TECHNIQUE: Transaxial images were obtained from the dome of the diaphragm to the symphysis pubis without oral contrast, and without intravenous contrast. Sagittal and coronal images were reconstructed. Individualized dose optimization techniques were used for this CT. COMPARISON: None. FINDINGS: There is lower lung scarring or atelectasis. There are coronary artery calcifications. Normal liver. There are surgical clips in the gallbladder fossa consistent with a prior cholecystectomy. Normal spleen. Normal pancreas. Normal bilateral adrenal glands. Normal right kidney. Normal left kidney. Normal visualized stomach. Normal small intestine. There are multiple colonic diverticula consistent with diverticulosis. The appendix is visualized and appears normal. Normal abdominal aorta. Normal inferior vena cava. Normal retroperitoneum. Normal urinary bladder. Normal visualized uterus. There is no free fluid in the abdomen or pelvis. Normal abdominal wall. There is scoliosis and degenerative change of the spine. CT/Abdomen/Pelvis without Cont IMPRESSION: Colonic diverticulosis. No obstruction or abscess. No stones or hydronephrosis. Electronically Signed: Tone Hall MD at 18:34 EDT ,
[2024-02-15] MEDS: Acetaminophen 325 MG Tablet 650 MG PO (17:49)
--- NOTE | 2024-02-15 19:00 | MRI_ITS ---
STUDY: MRI LEFT ANKLE WITH AND WITHOUT CONTRAST REASON FOR EXAM: Female, 58 years old. NKI, pt diabetic with swelling and pain TECHNIQUE: Standarized fat and water weighted pulse sequences were obtained in all 3 orthogonal plane pre and post intravenous administration of IV 18ml Clariscan. COMPARISON: X-ray February 14, 2024 FINDINGS: There is subcutaneous edema. There is fluid and enhancement in the sheath of the posterior tibialis tendon, flexor digitorum longus tendon, and flexor hallucis longus tendon. There is fluid and enhancement in the sheath of the peroneus longus and brevis tendons. Normal tibialis anterior tendon. Normal extensor hallucis longus tendon. Normal extensor digitorum longus tendons. Normal Achilles tendon and teno-osseous insertion. Normal plantar fascia. Normal plantar calcaneal tubercles. Normal intrinsic muscles of the rearfoot. Normal distal tibiofibular syndesmotic ligamentous complex. Normal lateral ligamentous complex. Normal subtalar ligaments and sinus tarsi. Normal deltoid ligamentous complexes. Normal plantar calcaneonavicular (spring) ligament. There is small effusion with synovial enhancement of the tibiotalar articulation. Normal talar dome. There is small effusion with synovial enhancement of the subtalar articulations. There is mild spurring at the talonavicular articulation. Normal calcaneocuboid articulation. Normal navicular-cuneiform articulations. MRI/Lower Ext Joint Only W/WO Cont IMPRESSION: Soft tissue swelling. Fluid and enhancement in the sheath of the tibialis posterior, flexor, and peroneal tendons. No evidence of osteomyelitis. Electronically Signed: Tone Hall MD at 22:44 EDT ,
[2024-02-15] MEDS: Ibuprofen 400 MG Tablet PO (21:23)
[2024-02-15] MEDS: Montelukast 10 MG Tablet PO (21:24)
[2024-02-16] MEDS: Ampicillin/Sulbactam 3 GM in 0.9% Normal Saline (100mL MB+) 100 ML IV ×4 (01:00→18:11)
[2024-02-16 06:10] LABS: Bedside Glucose 316 mg/dL (74-106)
[2024-02-16 07:15] LABS: Absolute Lymphocyte Count 2.35 X10^3/uL (0.83-4.51); Absolute Neutrophil Count 8.1 X10^3/uL (2.0-7.7); Basophil# 0.13 X10^3/uL; Basophil% 1.1 % (0-1); Eosinophil# 0.26 X10^3/uL; Eosinophils% 2.2 % (0-5); Hematocrit 36.4 % (37-47); Hemoglobin 11.3 g/dL (12.0-15.0); Lymphocyte # 2.35 X10^3/ul (0.83-4.51); Lymphocyte % 20.3 % (19-41); Mean Corpuscular Hgb 30.6 pg (27.0-32.0); Mean Corpuscular Volume 98.6 fL (81-99); Mean Platelet Vol. 9.6 fl (6.2-12.0); Monocyte# 0.54 X10^3/uL; Monocyte% 4.7 % (0-10); NRBC Flagged by Analyzer 0 % (0-5); Neutrophil # 8.12 X10^3/uL (2.7-7.7); Neutrophil % 70.2 % (47-70); Platelet Count 579 K/mm3 (150-450); RBC Distribution Width CV 13.8 % (11.6-14.6); RBC Distribution Width SD 49.6 fl (35.1-43.9); Red Blood Count 3.69 M/mm3 (4.2-5.4); White Blood Count 11.6 K/mm3 (4.4-11.0)
[2024-02-16 07:19] LABS: Anion Gap 5 (5-15); BUN 12 mg/dL (7-18); BUN/Creat Ratio 16.3 RATIO (10-20); Calcium,Total 9.3 mg/dL (8.5-10.1); Chloride 100 mmol/L (98-107); Creatinine, Serum 0.73 mg/dL (0.55-1.02); EST Glomerular Filtration Rate 86 mL/min (>60); Est Glom Filt Rate - Afr Amer 104 mL/min (>60); Glucose 263 mg/dL (74-106); Potassium 3.8 mmol/L (3.5-5.1); Sodium Level 134 mmol/L (136-145)
--- NOTE | 2024-02-16 07:36 | PN_ITS ---
Subjective Subjective Patient seen early this a.m. resting in bed with right foot elevated. States she had MRI of the left ankle yesterday due to swelling which was negative. Reports she is feeling better and looking into LTAC facility for assistance in care. Denies pain. Denies further complaints. Objective Data Objective Data Vital Signs: Vital Signs Temp Pulse Resp BP Pulse Ox O2 Del Method 98.4 F 96 16 113/60 95 Room Air 02/15/24 21:35 02/15/24 21:35 02/15/24 21:35 02/15/24 21:35 02/15/24 21:35 02/15/24 21:35 Oxygen Delivery Method Room Air Weight: 90.8 kg Body Mass Index (BMI) 30.4 Intake & Output: Intake and Output for Last 24 Hours 02/14/24 02/15/24 02/16/24 23:59 23:59 23:59 Intake Total 1593 / 1593 831.5 / 831.5 224 / 224 Output Total 1000 / 1000 Balance 593 / 593 831.5 / 831.5 224 / 224 Lab / Micro Data 02/16/24 05:47 02/16/24 05:47 Labs: Laboratory Results - last 24 hr 02/15/24 11:35: POC Glucose 152 H 02/15/24 15:37: POC Glucose 172 H 02/15/24 21:29: POC Glucose 316 H 02/16/24 05:47: WBC 11.6 H, RBC 3.69 L, Hgb 11.3 L, Hct 36.4 L, MCV 98.6, MCH 30.6, MCHC 31.0 L, RDW Std Deviation 49.6 H, RDW Coeff of Amos 13.8, Plt Count 579 H, MPV 9.6, Immature Gran % (Auto) 1.500 H, Neut % (Auto) 70.2 H, Lymph % (Auto) 20.3, [place] % (Auto) 4.7, Eos % (Auto) 2.2, Baso % (Auto) 1.1 H, Absolute Neuts (auto) 8.1 H, Absolute Lymphs (auto) 2.35, Nucleated RBC % 0, Sodium 134 L , Potassium 3.8, Chloride 100, Carbon Dioxide 29.0, Anion Gap 5, BUN 12, Creatinine 0.73, Estim Creat Clear Calc 97.80, Est GFR (MDRD) Af Amer 104, Est GFR (MDRD) Non-Af 86, BUN/Creatinine Ratio 16.3, Glucose 263 H, Calcium 9.3 Micro: Microbiology 02/14/24 09:58 Blood Culture (Wb) - Right Hand Blood Culture - Preliminary 02/11/24 13:30 Blood Culture (Wb) - Left Hand Bacteria Detection (PCR) - Final Staphylococcus aureus mecA Resistance Marker 02/11/24 13:30 Blood Culture (Wb) - Left Hand Blood Culture - Final Meth. resistant Staph. aureus 02/08/24 08:46 Blood Culture (Wb) - Right Hand Blood Culture - Final Meth. resistant Staph. aureus 02/10/24 13:40 Wound - Right Foot Gram Stain - Final 02/10/24 13:40 Wound - Right Foot Wound Culture - Final Meth. resistant Staph. aureus Corynebacterium striatum 02/10/24 13:40 Wound - Right Foot Anaerobic Culture - Final No anaerobic bacteria isolated. 02/08/24 11:00 Wound - Right Foot Gram Stain - Final 02/08/24 11:00 Wound - Right Foot Wound Culture - Final Meth. resistant Staph. aureus 02/06/24 11:46 Urine, Clean Catch Urine Culture - Final Meth. resistant Staph. aureus 02/06/24 11:29 Mucosa - Nose SARS-CoV-2, Influenza & RSV (PCR) - Final Radiography Diagnostic Testing: Radiology Impression Transesophageal Echocardiogram 02/15/24 10:00 Interpretation Summary The estimated ejection fraction is 45 %. No evidence of infective endocarditis Ordering Physician: Siobhan Huang Referring Physician: Cuong Barros Performed By: Deanna Bates, RDCS, RVT Abdomen/Pelvis CT 02/15/24 17:38 IMPRESSION: Colonic diverticulosis. No obstruction or abscess. No stones or hydronephrosis. Electronically Signed: Tone Hall MD at 18:34 EDT , Lower Extremity MRI 02/15/24 19:00 IMPRESSION: Soft tissue swelling. Fluid and enhancement in the sheath of the tibialis posterior, flexor, and peroneal tendons. No evidence of osteomyelitis. Electronically Signed: Tone Hall MD at 22:44 EDT , Physical Exam Const alert, oriented x3 and no apparent distress Constitutional Narrative: Generally ill-appearing. HEENT normocephalic Eyes General Eye: normal appearance of both eyes Neck General: normal visual inspection Lymph Lymphatic: no lymphadenopathy noted and no lymphedema noted Resp normal respiratory effort Cardio regular rate and regular rhythm Extremity normal capillary refill and no calf tenderness Extremity Narrative: Right Lower Extremity: Vascular: DP and PT pulses palpable. CFT < 4 seconds to digits. Increased temperature overlying dorsal foot and medial foot. Hair growth diminished to digits. Neurologic: Absent protective sensation secondary to Diabetic Peripheral Polyneuropathy. Musculoskeletal: Muscle strength 5 of 5 age-appropriate. No pain to palpation about the ulcerative site or dorsal foot. Charcot foot deformity noted. Dermatological: Incision distal anterior leg extending to dorsal foot with sutures intact. Incision medial foot with sutures intact. Soft tissue defect dorsal medial foot measuring 5.5 cm x 2.5 cm x 1.0 cm with wound VAC in place. Surgical dressings in place. Skin skin turgor normal and no jaundice Neuro moves all extremities Assessment & Plan Assessment/Plan (1) Cellulitis of right lower limb: (2) Foot abscess, right: (3) Type 2 diabetes mellitus with diabetic polyneuropathy: QUALIFIERS: Diabetes mellitus termite control servicer insulin use: with termite control servicer use Qualified Code(s): E11.42 - Type 2 diabetes mellitus with diabetic polyneuropathy; Z79.4 - alf (current) use of insulin (4) Charcot's joint of right foot: PLAN: Plan Patient seen and evaluated Underwent I&D with wide debridement of necrotic tissue and application of wound VAC right foot 02/10/2024. POD #6 Right Lower Extremity: Incision distal anterior leg extending to dorsal foot with sutures intact. Incision medial foot with sutures intact. Soft tissue defect dorsal medial foot measuring 5.5 cm x 2.5 cm x 1.0 cm with wound VAC in place. Wound VAC and dressings removed today and site was inspected. Sutures are intact at incision sites. Tissue appears healthy, ulceration is granulating in well. Erythema of the dorsal foot resolved. There is still some postoperative swelling. Dressings were reapplied with Betadine soaked Adaptic over the incision sites. And wound VAC was applied over the ulceration site/incision sites and inflated to 125 mmHg without leak. Right Lower Extremity is overall improving. WBC has continued to trend down, currently at 11.6 Blood cultures demonstrate MRSA Wound culture of new abscess region demonstrates Staph aureus protein A PCR positive; MRSA PCR positive. Cultures MRSA HbA1c 11.3% on 02/15/24. Surgical tissue cultures demonstrate: Staph aureus (MRSA). PICC line in place, currently on Daptomycin and Unasyn, per ID Medicine team following for medical management Infectious disease consulted for antibiotic management. Plan for 6 weeks IV antibiotic with continued followed by ID. Wound care nurse following for assisting in dressing changes. She is to remain nonweightbearing to the right lower extremity. May utilize walker or knee scooter to maintain compliance. Will continue to elevate foot for postoperative edema control. Plans to change wound VAC on Wednesday02/18/2024. I will continue to follow while in house. Once discharged will follow with me in the wound care center. Jr. Susan Dent.P.M. [facility] [phone]
--- NOTE | 2024-02-16 07:47 | PCM.PN.HOSP ---
Reason for Visit Reason for Visit: Nausea and vomiting Subjective Subjective Patient with no subjective complaints. Frustrated that her cultures do not clear. We still have an unknown source. We discussed the results of her CT scan which were unremarkable. We discussed the results of her left lower extremity MRI and she states Dr. Lewis did look at it and did not think anything of it and thought it was just inflammation of the tendon level. We did discuss repeat cultures drawn today and we will reevaluate them hopefully with clearance soon to enable upcoming discharge. Patient is anxious to get out of the hospital soon as she can Objective Data Objective Data Vital Signs: Vital Signs Temp Pulse Resp BP Pulse Ox O2 Del Method 98.4 F 96 16 113/60 95 Room Air 02/15/24 21:35 02/15/24 21:35 02/15/24 21:35 02/15/24 21:35 02/15/24 21:35 02/15/24 21:35 Oxygen Delivery Method Room Air Weight: 90.8 kg Body Mass Index (BMI) 30.4 Intake & Output: Intake and Output for Last 24 Hours 02/14/24 02/15/24 02/16/24 23:59 23:59 23:59 Intake Total 1593 / 1593 831.5 / 831.5 224 / 224 Output Total 1000 / 1000 Balance 593 / 593 831.5 / 831.5 224 / 224 Lab / Micro Data 02/16/24 05:47 02/16/24 05:47 Labs: Laboratory Results - last 24 hr 02/15/24 11:35: POC Glucose 152 H 02/15/24 15:37: POC Glucose 172 H 02/15/24 21:29: POC Glucose 316 H 02/16/24 05:47: WBC 11.6 H, RBC 3.69 L, Hgb 11.3 L, Hct 36.4 L, MCV 98.6, MCH 30.6, MCHC 31.0 L, RDW Std Deviation 49.6 H, RDW Coeff of Amos 13.8, Plt Count 579 H, MPV 9.6, Immature Gran % (Auto) 1.500 H, Neut % (Auto) 70.2 H, Lymph % (Auto) 20.3, [place] % (Auto) 4.7, Eos % (Auto) 2.2, Baso % (Auto) 1.1 H, Absolute Neuts (auto) 8.1 H, Absolute Lymphs (auto) 2.35, Nucleated RBC % 0, Sodium 134 L, Potassium 3.8, Chloride 100, Carbon Dioxide 29.0, Anion Gap 5, BUN 12, Creatinine 0.73, Estim Creat Clear Calc 97.80, Est GFR (MDRD) Af Amer 104, Est GFR (MDRD) Non-Af 86, BUN/Creatinine Ratio 16.3, Glucose 263 H, Calcium 9.3 Micro: Microbiology 02/14/24 09:58 Blood Culture (Wb) - Right Hand Blood Culture - Preliminary 02/11/24 13:30 Blood Culture (Wb) - Left Hand Bacteria Detection (PCR) - Final Staphylococcus aureus mecA Resistance Marker 02/11/24 13:30 Blood Culture (Wb) - Left Hand Blood Culture - Final Meth. resistant Staph. aureus 02/08/24 08:46 Blood Culture (Wb) - Right Hand Blood Culture - Final Meth. resistant Staph. aureus 02/10/24 13:40 Wound - Right Foot Gram Stain - Final 02/10/24 13:40 Wound - Right Foot Wound Culture - Final Meth. resistant Staph. aureus Corynebacterium striatum 02/10/24 13:40 Wound - Right Foot Anaerobic Culture - Final No anaerobic bacteria isolated. 02/08/24 11:00 Wound - Right Foot Gram Stain - Final 02/08/24 11:00 Wound - Right Foot Wound Culture - Final Meth. resistant Staph. aureus 02/06/24 11:46 Urine, Clean Catch Urine Culture - Final Meth. resistant Staph. aureus 02/06/24 11:29 Mucosa - Nose SARS-CoV-2, Influenza & RSV (PCR) - Final Radiography Diagnostic Testing: Radiology Impression Transesophageal Echocardiogram 02/15/24 10:00 Interpretation Summary The estimated ejection fraction is 45 %. No evidence of infective endocarditis Ordering Physician: Siobhan Huang Referring Physician: Cuong Barros Performed By: Deanna Bates, RDCS, RVT Abdomen/Pelvis CT 02/15/24 17:38 IMPRESSION: Colonic diverticulosis. No obstruction or abscess. No stones or hydronephrosis. Electronically Signed: Tone Hall MD at 18:34 EDT , Lower Extremity MRI 02/15/24 19:00 IMPRESSION: Soft tissue swelling. Fluid and enhancement in the sheath of the tibialis posterior, flexor, and peroneal tendons. No evidence of osteomyelitis. Electronically Signed: Tone Hall MD at 22:44 EDT , Physical Exam Const alert, oriented x3, no apparent distress and well nourished; Negative for average body habitus or healthy appearing Constitutional Narrative: Obese, middle-aged, white female, lying in bed, patient appears older than stated age, affect is less flat today, patient is nontoxic General Appearance: cooperative HEENT normocephalic, head/scalp atraumatic and moist oral mucous membranes Resp normal respiratory effort, normal air movement, no retractions, no use of accessory muscles and clear to auscultation bilaterally Auscultation: Negative for rales, rhonchi or wheezes Cardio regular rate, regular rhythm, S1 normal heart sound, S2 normal heart sound, no murmurs, no rub, no gallops and no clicks GI normal to inspection, nondistended, normoactive bowel sounds, soft to palpation and non-tender Extremity normal to inspection, full ROM, normal capillary refill, no clubbing, cyanosis or edema and no calf tenderness Extremity Narrative: Left ankle was still swelling, erythema seems to be much improved, no tenderness noted today, right foot with dressing in place, second digit on right toe appears to be stable and nontender to palpation Neuro oriented x3, moves all extremities and no focal motor deficits Speech: speech normal Psych thought process normal and cooperative Psych Narrative: Very pleasant, makes good eye contact, interacts appropriately Assessment & Plan Assessment/Plan (1) Foot abscess, right: (2) Cellulitis of right lower limb: (3) Bacteremia: PLAN: Plan MRSA bacteremia secondary to right foot cellulitis/wound infection/R Charcot foot -Postop day 6 I&D with wide debridement of necrotic tissue per podiatry -Continue IV daptomycin and Unasyn -Initial echocardiogram was unremarkable however repeat blood cultures were positive -GALO was negative for any valvular vegetations or signs of IE and an EF of 45% -Blood cultures from 01/25/2024 already popping positive -Repeat blood cultures drawn today and pending -MRI of the spine did not show any discitis or osteo -MRI of the left ankle shows some abnormalities however bone structure looks good--will consult orthopedic surgery to assess> -continue wound VAC per podiatry--> next VAC changes for 02/16/2024 -Nonweightbearing right lower extremity -ID is following -PICC line in place but will need to be exchanged prior to discharge once blood cultures are clear if needs to be discharged on IV antibiotics MRSA UTI -Suspect related to seeding from blood -CT of the abdomen pelvis was completely unremarkable -Continue IV Dapto Left ankle erythema and swelling -Plain films unremarkable for any bony abnormalities -MRI with some slight abnormalities around the tendons -No tenderness today -Consult orthopedic surgery for input Uncontrolled DM-2 -Patient had not been on insulin due to cost -We have found that she may be able to get Lantus for $35 a month which is amenable to her so we will prescribe Lantus at discharge -Fasting blood sugars up again today despite Lantus increased yesterday -Increase Lantus to 34 units -Continue prandial insulin but increase from 6 units to 10 units -Hemoglobin A1c is 11.2--> will likely need basal and bolus insulin at discharge -Restart oral metformin at discharge -Continue SSI -Cardiac/carb controlled diet Hypokalemia -Resolved Chronic anemia -Hemoglobin is relatively stable -Will continue to monitor Intractable back pain -Remained stable -MRI ruled out osteomyelitis and discitis -Continue PT/OT -Continue pain medication Hypothyroidism -Continue home Synthroid -Continue Liothyronine Narcolepsy -Restart home medication at discharge DVT prophylaxis -Continue subcu Lovenox CODE STATUS Full code Charges/Coding Visit Charges Inpatient E&M: 57539 Subs Hosp L2
[2024-02-16 08:37] VITALS: BP 126/69; PULSE 86; RESP 16; TEMP 36.7; O2SAT 100
[2024-02-16] MEDS: Insulin Lispro 100 UNIT/ML INSULN.PEN SC ×4 (08:43→21:32)
[2024-02-16] MEDS: Insulin Lispro 100 UNIT/ML INSULN.PEN 10 UNIT SC ×2 (08:44→11:50)
[2024-02-16] MEDS: Insulin Glargine-YFGN 100 UNIT/ML Pen 34 UNIT SC (08:45)
[2024-02-16] MEDS: Loratadine 10 MG Tablet PO (08:45)
[2024-02-16] MEDS: Ibuprofen 400 MG Tablet PO ×2 (08:46→21:20)
[2024-02-16] MEDS: Enoxaparin 40 MG/0.4 ML Syringe SC (08:46)
[2024-02-16 09:40] LABS: Bedside Glucose 247 mg/dL (74-106)
--- NOTE | 2024-02-16 09:41 | CASEMGMT ---
BERTA TRUJILLO received update from Lisa at [facility]. They are able to accept patient. Lisa inquired about pending medicaid. Pending case number provided #[id number]. BERTA TRUJILLO updated patient, patient had no further questions. CM will continue to follow this patient and plan for a safe discharge.
[2024-02-16] MEDS: NORMAL SALINE 0.9% IV (11:44)
[2024-02-16] MEDS: DAPTOMYCIN IV (11:44)
[2024-02-16 13:07] LABS: Bedside Glucose 211 mg/dL (74-106)
--- NOTE | 2024-02-16 13:39 | PN.ID_ITS ---
Physical Exam Narrative Feeling about the same. L ankle sore, no fever, still some back pain. No n/v/d. Const alert and no apparent distress Resp normal air movement and clear to auscultation bilaterally Cardio regular rate and regular rhythm GI soft to palpation, non-tender and non-distended Extremity General Extremity: edema Skin Skin Narrative: L ankle redness, swelling, mild tenderness. 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 MRI did not show lumbar osteo/discitis. No veg on TTE. Cont dapto and unasyn. Podiatry following, OR 02/10/[address] Lewis for I&D. Repeat bcx today and agree with GALO. Given difficulty with access, ok for picc placement even if bcx haven't cleared. No veg seen on GALO. New L ankle pain, swelling, redness. Ortho consulted. Will follow, d/w Dr. Huang (3) Type 2 diabetes mellitus with diabetic polyneuropathy: QUALIFIERS: Diabetes mellitus alf insulin use: with alf use Qualified Code(s): E11.42 - Type 2 diabetes mellitus with diabetic polyneuropathy; Z79.4 - [facility] (current) use of insulin
[2024-02-16 14:43] VITALS: BP 110/64; PULSE 94; RESP 16; TEMP 36.8; O2SAT 94
[2024-02-16] MEDS: Morphine 2 MG/ML Syringe IV (14:43)
[2024-02-16 17:16] LABS: Bedside Glucose 163 mg/dL (74-106)
[2024-02-16 18:00] VITALS: BP 122/65; PULSE 98; RESP 16; TEMP 37.2; O2SAT 94
[2024-02-16] MEDS: Acetaminophen 325 MG Tablet 650 MG PO (18:36)
[2024-02-16] MEDS: oxyCODONE 5 MG Tablet PO (18:36)
[2024-02-16] MEDS: Montelukast 10 MG Tablet PO (21:21)
[2024-02-16 22:00] VITALS: BP 98/68; PULSE 94; RESP 16; TEMP 36.9; O2SAT 94
[2024-02-16 22:05] LABS: Bedside Glucose 323 mg/dL (74-106)
[2024-02-17] MEDS: Ampicillin/Sulbactam 3 GM in 0.9% Normal Saline (100mL MB+) 100 ML IV ×4 (00:17→17:13)
[2024-02-17 03:26] VITALS: BP 114/70; PULSE 85; RESP 15; TEMP 36.1; O2SAT 96
[2024-02-17 03:30] VITALS: BMI 30.3
[2024-02-17] MEDS: Liothyronine 5 MCG Tablet 12.5 MCG PO (05:38)
[2024-02-17] MEDS: Levothyroxine 112 MCG Tablet PO (05:38)
[2024-02-17 07:02] LABS: Absolute Lymphocyte Count 2.31 X10^3/uL (0.83-4.51); Absolute Neutrophil Count 8.3 X10^3/uL (2.0-7.7); Basophil% 0.9 % (0-1); Eosinophil# 0.28 X10^3/uL; Eosinophils% 2.4 % (0-5); Hematocrit 32.2 % (37-47); Hemoglobin 9.8 g/dL (12.0-15.0); Lymphocyte # 2.31 X10^3/ul (0.83-4.51); Lymphocyte % 19.9 % (19-41); Mean Corp Hgb Conc 30.4 g/dL (32-36); Mean Corpuscular Hgb 29.5 pg (27.0-32.0); Mean Platelet Vol. 9.3 fl (6.2-12.0); Monocyte# 0.45 X10^3/uL; Monocyte% 3.9 % (0-10); NRBC Flagged by Analyzer 0 % (0-5); Neutrophil # 8.31 X10^3/uL (2.7-7.7); Neutrophil % 71.4 % (47-70); Platelet Count 552 K/mm3 (150-450); RBC Distribution Width CV 13.6 % (11.6-14.6); RBC Distribution Width SD 48.4 fl (35.1-43.9); Red Blood Count 3.32 M/mm3 (4.2-5.4); White Blood Count 11.6 K/mm3 (4.4-11.0)
[2024-02-17 07:19] LABS: Anion Gap 7 (5-15); BUN 14 mg/dL (7-18); BUN/Creat Ratio 23.2 RATIO (10-20); Calcium,Total 8.9 mg/dL (8.5-10.1); Chloride 103 mmol/L (98-107); EST Glomerular Filtration Rate 108 mL/min (>60); Est Glom Filt Rate - Afr Amer 131 mL/min (>60); Glucose 235 mg/dL (74-106); Potassium 3.7 mmol/L (3.5-5.1); Sodium Level 136 mmol/L (136-145)
--- NOTE | 2024-02-17 08:58 | CASEMGMT ---
Discharge Planning Clinical updates sent via [facility] to [facility]. Sultana Obrien DC Planning Asst.
[2024-02-17] MEDS: Insulin Lispro 100 UNIT/ML INSULN.PEN SC ×3 (08:59→21:50)
[2024-02-17] MEDS: Insulin Lispro 100 UNIT/ML INSULN.PEN 10 UNIT SC ×2 (08:59→11:27)
[2024-02-17 09:00] VITALS: BP 126/62; PULSE 91; RESP 16; TEMP 36.8; O2SAT 96
[2024-02-17] MEDS: Ibuprofen 400 MG Tablet PO ×2 (09:00→19:54)
[2024-02-17] MEDS: Enoxaparin 40 MG/0.4 ML Syringe SC (09:00)
[2024-02-17] MEDS: Loratadine 10 MG Tablet PO (09:00)
[2024-02-17] MEDS: Insulin Glargine-YFGN 100 UNIT/ML Pen 34 UNIT SC (09:01)
[2024-02-17] MEDS: Morphine 2 MG/ML Syringe IV ×2 (09:19→17:16)
[2024-02-17] MEDS: 0.9% Saline Lock 10 ML Syringe IV (09:19)
[2024-02-17] MEDS: DAPTOMYCIN IV (10:15)
[2024-02-17] MEDS: NORMAL SALINE 0.9% IV (10:15)
--- NOTE | 2024-02-17 10:55 | PCM.PN.ID ---
Physical Exam Narrative L ankle feels better, no fever, still back pain, no n/v/d. 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 MRI did not show lumbar osteo/discitis. No veg on TTE. Cont dapto and unasyn. Podiatry following, OR 02/10/[address] Lewis for I&D. Repeat bcx today pending. Given difficulty with access, ok for picc placement even if bcx haven't cleared. No veg seen on GALO. 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
[2024-02-17 11:49] LABS: Bedside Glucose 247 mg/dL (74-106)
--- NOTE | 2024-02-17 14:40 | CASEMGMT ---
ABDOUL was informed patient is now considering [facility] at d/c. ABDOUL asked Sultana to send a referral to [facility]. Elena LOPEZ
--- NOTE | 2024-02-17 14:59 | CASEMGMT ---
Addendum entered by Sultana Obrien 02/18/24 09:34: [facility] has accepted. Updates sent. Sultana Obrien DC Planning Asst. Original Note: Discharge Planning Referral sent to [facility] via [facility]. Sultana Obrien DC Planning Asst.
--- NOTE | 2024-02-17 16:42 | PN.HOSP_ITS ---
Reason for Visit Reason for Visit: Abdominal pain Subjective Subjective No current issues. Slept okay. Hopeful to be able to go soon. We discussed that her repeat cultures are still pending for clearance Objective Data Objective Data Vital Signs: Vital Signs Temp Pulse Resp BP Pulse Ox O2 Del Method 98.3 F 91 16 126/62 H 96 Room Air 02/17/24 09:00 02/17/24 09:00 02/17/24 09:00 02/17/24 09:00 02/17/24 09:00 02/17/24 09:00 Oxygen Delivery Method Room Air Weight: 90.5 kg Body Mass Index (BMI) 30.3 Intake & Output: Intake and Output for Last 24 Hours 02/15/24 02/16/24 02/17/24 23:59 23:59 23:59 Intake Total 831.5 / 831.5 1293 / 1533 1322.5 / 1322.5 Balance 831.5 / 831.5 1293 / 1533 1322.5 / 1322.5 Lab / Micro Data 02/17/24 06:32 02/17/24 06:32 Labs: Laboratory Results - last 24 hr 02/16/24 16:35: POC Glucose 163 H 02/16/24 21:29: POC Glucose 323 H 02/17/24 06:32: WBC 11.6 H, RBC 3.32 L, Hgb 9.8 L, Hct 32.2 L, MCV 97.0, MCH 29.5, MCHC 30.4 L, RDW Std Deviation 48.4 H, RDW Coeff of Amos 13.6, Plt Count 552 H, MPV 9.3, Immature Gran % (Auto) 1.500 H, Neut % (Auto) 71.4 H, Lymph % (Auto) 19.9, [place] % (Auto) 3.9, Eos % (Auto) 2.4, Baso % (Auto) 0.9, Absolute Neuts (auto) 8.3 H, Absolute Lymphs (auto) 2.31, Nucleated RBC % 0, Sodium 136, Potassium 3.7, Chloride 103, Carbon Dioxide 26.0, Anion Gap 7, BUN 14, Creatinine 0.60, Estim Creat Clear Calc 118.80, Est GFR (MDRD) Af Amer 131, Est GFR (MDRD) Non-Af 108, BUN/Creatinine Ratio 23.2 H, Glucose 235 H, Calcium 8.9 02/17/24 11:25: POC Glucose 247 H Micro: Microbiology 02/14/24 09:58 Blood Culture (Wb) - Right Hand Blood Culture - Final Meth. resistant Staph. aureus 02/11/24 13:30 Blood Culture (Wb) - Left Hand Bacteria Detection (PCR) - Final Staphylococcus aureus mecA Resistance Marker 02/11/24 13:30 Blood Culture (Wb) - Left Hand Blood Culture - Final Meth. resistant Staph. aureus 02/08/24 08:46 Blood Culture (Wb) - Right Hand Blood Culture - Final Meth. resistant Staph. aureus 02/10/24 13:40 Wound - Right Foot Gram Stain - Final 02/10/24 13:40 Wound - Right Foot Wound Culture - Final Meth. resistant Staph. aureus Corynebacterium striatum 02/10/24 13:40 Wound - Right Foot Anaerobic Culture - Final No anaerobic bacteria isolated. 02/08/24 11:00 Wound - Right Foot Gram Stain - Final 02/08/24 11:00 Wound - Right Foot Wound Culture - Final Meth. resistant Staph. aureus 02/06/24 11:46 Urine, Clean Catch Urine Culture - Final Meth. resistant Staph. aureus 02/06/24 11:29 Mucosa - Nose SARS-CoV-2, Influenza & RSV (PCR) - Final Physical Exam Const alert, oriented x3, no apparent distress and well nourished; Negative for average body habitus or healthy appearing Constitutional Narrative: Obese, middle-aged, white female, lying in bed, patient appears older than stated age, affect is less flat today, patient is nontoxic General Appearance: cooperative HEENT normocephalic, head/scalp atraumatic and moist oral mucous membranes Eyes PERRL and EOMs intact bilaterally Eyes Narrative: No scleral icterus Neck no lymphadenopathy, supple and no JVD Neck Narrative: Trachea midline Lymph Lymphatic: no lymphadenopathy noted and no lymphedema noted Resp normal respiratory effort, normal air movement, no retractions, no use of accessory muscles and clear to auscultation bilaterally Auscultation: Negative for rales, rhonchi or wheezes Cardio regular rate, regular rhythm, S1 normal heart sound, S2 normal heart sound, no murmurs, no rub, no gallops and no clicks GI normal to inspection, nondistended, normoactive bowel sounds, soft to palpation, non-tender and non-distended Extremity no clubbing, cyanosis or edema Extremity Narrative: Left ankle was still swelling and pitting at trace to 1+, erythema seems to continue to be improved, no tenderness noted again today, right foot with dressing in place, second digit on right toe appears to be stable and nontender to palpation Neuro oriented x3, moves all extremities and no focal motor deficits Neuro Narrative: Decree sensation bilateral lower extremities due to neuropathy Speech: speech normal Psych thought process normal Psych Narrative: Very pleasant, makes good eye contact, interacts appropriately Appearance: appropriate Assessment & Plan Assessment/Plan (1) Foot abscess, right: (2) Cellulitis of right lower limb: (3) Bacteremia: PLAN: Plan MRSA bacteremia secondary to right foot cellulitis/wound infection/R Charcot foot -Postop day 7 I&D with wide debridement of necrotic tissue per podiatry -Continue IV daptomycin and Unasyn per infectious disease -GALO was negative for any valvular vegetations or signs of IE and an EF of 45% -Patient has not yet had clearance cultures that are negative -Repeat cultures from today are pending -MRI of the spine did not show any discitis or osteo -MRI of the left ankle shows some abnormalities however bone structure looks good -continue wound VAC per podiatry -Nonweightbearing right lower extremity -PICC line in place but will need to be exchanged prior to discharge once blood cultures are clear if needs to be discharged on IV antibiotics MRSA UTI -Suspect related to seeding from blood -Antibiotics per ID Left ankle erythema and swelling -Plain films unremarkable for any bony abnormalities -MRI with some slight abnormalities around the tendons -No tenderness today -Podiatry does not feel that this is anything acute related to her ongoing bacteremia -With swelling we will give 1 dose of Lasix 20 mg IV push Uncontrolled DM-2 -Patient had not been on insulin due to cost -We have found that she may be able to get Lantus for $35 a month which is amenable to her so we will prescribe Lantus at discharge -Fasting sugars still remain over 200 -Increase Lantus to 40 units -Continue prandial insulin but increase from 10 to 13 units -Hemoglobin A1c is 11.2--> will likely need basal and bolus insulin at discharge -Restart oral metformin at discharge -Continue SSI -Cardiac/carb controlled diet Chronic anemia -Hemoglobin is relatively stable -Will continue to monitor Intractable back pain -Remained stable -MRI ruled out osteomyelitis and discitis -Continue PT/OT -Continue pain medication Hypothyroidism -Continue home Synthroid -Continue Liothyronine Narcolepsy -Restart home medication at discharge DVT prophylaxis -Continue subcu Lovenox CODE STATUS Full code Charges/Coding Visit Charges Inpatient E&M: 39109 Subs Hosp L2
[2024-02-17] MEDS: Furosemide 20 MG/2 ML VIAL IV (17:13)
[2024-02-17 17:45] LABS: Bedside Glucose 126 mg/dL (74-106)
[2024-02-17] MEDS: Montelukast 10 MG Tablet PO (19:55)
[2024-02-17 21:00] VITALS: BP 123/64; PULSE 99; RESP 15; TEMP 37.2; O2SAT 94
[2024-02-17 22:19] LABS: Bedside Glucose 283 mg/dL (74-106)
[2024-02-18 02:39] VITALS: BMI 29.2
[2024-02-18 03:00] VITALS: BP 115/69; PULSE 90; RESP 14; TEMP 36.1; O2SAT 96
[2024-02-18] MEDS: Liothyronine 5 MCG Tablet 12.5 MCG PO (06:05)
[2024-02-18] MEDS: Levothyroxine 112 MCG Tablet PO (06:05)
[2024-02-18] MEDS: Ampicillin/Sulbactam 3 GM in 0.9% Normal Saline (100mL MB+) 100 ML IV ×4 (06:06→17:05)
[2024-02-18 06:54] LABS: Hemoglobin 11.1 g/dL (12.0-15.0); Mean Corp Hgb Conc 31.7 g/dL (32-36); Mean Corpuscular Hgb 30.4 pg (27.0-32.0); Mean Corpuscular Volume 95.9 fL (81-99); Mean Platelet Vol. 9.4 fl (6.2-12.0); Platelet Count 566 K/mm3 (150-450); RBC Distribution Width CV 13.7 % (11.6-14.6); RBC Distribution Width SD 47.8 fl (35.1-43.9); Red Blood Count 3.65 M/mm3 (4.2-5.4); White Blood Count 12.5 K/mm3 (4.4-11.0)
--- NOTE | 2024-02-18 07:53 | PN_ITS ---
Subjective Subjective Patient seen early this a.m. resting in bed with the right foot elevated. States that she did discuss possible places for her transfer. States that she is anxious to go, but does understand necessity for cleared blood culture. States that she did spike a small fever last night but overall feels the same. Denies further complaints. Objective Data Objective Data Vital Signs: Vital Signs Temp Pulse Resp BP Pulse Ox O2 Del Method 96.9 F L 90 14 115/69 96 Room Air 02/18/24 03:00 02/18/24 03:00 02/18/24 03:00 02/18/24 03:00 02/18/24 03:00 02/18/24 03:00 Oxygen Delivery Method Room Air Weight: 87.3 kg Body Mass Index (BMI) 29.2 Intake & Output: Intake and Output for Last 24 Hours 02/16/24 02/17/24 02/18/24 23:59 23:59 23:59 Intake Total 1293 / 1533 1434.5 / 1674.5 584 / 584 Output Total 400 / 400 Balance 1293 / 1533 1434.5 / 1674.5 184 / 184 Lab / Micro Data 02/18/24 06:44 02/17/24 06:32 Labs: Laboratory Results - last 24 hr 02/17/24 11:25: POC Glucose 247 H 02/17/24 17:24: POC Glucose 126 H 02/17/24 21:47: POC Glucose 283 H 02/18/24 06:44: WBC 12.5 H, RBC 3.65 L, Hgb 11.1 L, Hct 35.0 L, MCV 95.9, MCH 30.4, MCHC 31.7 L, RDW Std Deviation 47.8 H, RDW Coeff of Amos 13.7, Plt Count 566 H, MPV 9.4 Micro: Microbiology 02/14/24 09:58 Blood Culture (Wb) - Right Hand Blood Culture - Final Meth. resistant Staph. aureus 02/11/24 13:30 Blood Culture (Wb) - Left Hand Bacteria Detection (PCR) - Final Staphylococcus aureus mecA Resistance Marker 02/11/24 13:30 Blood Culture (Wb) - Left Hand Blood Culture - Final Meth. resistant Staph. aureus 02/08/24 08:46 Blood Culture (Wb) - Right Hand Blood Culture - Final Meth. resistant Staph. aureus 02/10/24 13:40 Wound - Right Foot Gram Stain - Final 02/10/24 13:40 Wound - Right Foot Wound Culture - Final Meth. resistant Staph. aureus Corynebacterium striatum 02/10/24 13:40 Wound - Right Foot Anaerobic Culture - Final No anaerobic bacteria isolated. 02/08/24 11:00 Wound - Right Foot Gram Stain - Final 02/08/24 11:00 Wound - Right Foot Wound Culture - Final Meth. resistant Staph. aureus 02/06/24 11:46 Urine, Clean Catch Urine Culture - Final Meth. resistant Staph. aureus 02/06/24 11:29 Mucosa - Nose SARS-CoV-2, Influenza & RSV (PCR) - Final Physical Exam Const alert, oriented x3 and no apparent distress Constitutional Narrative: Generally ill-appearing. HEENT normocephalic Eyes General Eye: normal appearance of both eyes Neck General: normal visual inspection Lymph Lymphatic: no lymphadenopathy noted and no lymphedema noted Resp normal respiratory effort Cardio regular rate and regular rhythm Extremity normal capillary refill and no calf tenderness Extremity Narrative: Right Lower Extremity: Vascular: DP and PT pulses palpable. CFT < 4 seconds to digits. Increased temperature overlying dorsal foot and medial foot. Hair growth diminished to digits. Neurologic: Absent protective sensation secondary to Diabetic Peripheral Polyneuropathy. Musculoskeletal: Muscle strength 5 of 5 age-appropriate. No pain to palpation about the ulcerative site or dorsal foot. Charcot foot deformity noted. Dermatological: Incision distal anterior leg extending to dorsal foot with sutures intact. Incision medial foot with sutures intact. Soft tissue defect dorsal medial foot measuring 5.5 cm x 2.5 cm x 1.0 cm with wound VAC in place. Surgical dressings in place. 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 POD #8 Right Lower Extremity: Incision distal anterior leg extending to dorsal foot with sutures intact. Incision medial foot with sutures intact. Soft tissue defect dorsal medial foot measuring 5.5 cm x 2.5 cm x 1.0 cm with wound VAC in place. Wound VAC and dressings removed today and site was inspected. Sutures are intact at incision sites. Tissue appears healthy, ulceration is granulating in well. Erythema of the dorsal foot resolved. There is still some postoperative swelling. Dressings were reapplied with Betadine soaked Adaptic over the incision sites. And wound VAC was applied over the ulceration site/incision sites and inflated to 125 mmHg without leak. Right Lower Extremity is overall improving. Left ankle swelling is improving and rubor decreasing. Recommend Sebastian wrap compression in addition to elevation to aid in edema control. WBC slight increase from yesterday, currently at 12.5 Blood cultures still positive for MRSA Wound culture of new abscess region demonstrates Staph aureus protein A PCR positive; MRSA PCR positive. Cultures MRSA HbA1c 11.3% on 02/15/24. Surgical tissue cultures demonstrate: Staph aureus (MRSA). PICC line in place, currently on Daptomycin and Unasyn, per ID Medicine team following for medical management Infectious disease consulted for antibiotic management. Plan for 6 weeks IV antibiotic with continued followed by ID. Wound care nurse following for assisting in dressing changes. She is to remain nonweightbearing to the right lower extremity. May utilize walker or knee scooter to maintain compliance. Will continue to elevate foot for postoperative edema control. Plans to change wound VAC on Wednesday02/21/2024. I will continue to follow while in house. Once discharged will follow with me in the wound care center. Jr. Susan Dent.P.M. [facility] [phone]
[2024-02-18 08:07] LABS: Anion Gap 7 (5-15); BUN 13 mg/dL (7-18); BUN/Creat Ratio 18.2 RATIO (10-20); Calcium,Total 9.2 mg/dL (8.5-10.1); Chloride 101 mmol/L (98-107); Creatinine, Serum 0.71 mg/dL (0.55-1.02); EST Glomerular Filtration Rate 89 mL/min (>60); Est Glom Filt Rate - Afr Amer 108 mL/min (>60); Estimated Creatinine Clearance 98.67 ml/min; Glucose 209 mg/dL (74-106); Potassium 4.6 mmol/L (3.5-5.1); Sodium Level 134 mmol/L (136-145)
[2024-02-18] MEDS: Insulin Lispro 100 UNIT/ML INSULN.PEN SC ×3 (08:15→22:17)
[2024-02-18] MEDS: Insulin Lispro 100 UNIT/ML INSULN.PEN 13 UNIT SC ×3 (08:16→17:05)
[2024-02-18] MEDS: Insulin Glargine-YFGN 100 UNIT/ML Pen 40 UNIT SC (08:17)
[2024-02-18] MEDS: Ibuprofen 400 MG Tablet PO ×2 (08:20→20:26)
[2024-02-18] MEDS: Loratadine 10 MG Tablet PO (08:20)
[2024-02-18] MEDS: Enoxaparin 40 MG/0.4 ML Syringe SC (08:20)
[2024-02-18] MEDS: Morphine 2 MG/ML Syringe IV ×2 (08:20→20:25)
[2024-02-18 08:56] LABS: Bedside Glucose 204 mg/dL (74-106)
[2024-02-18 09:00] VITALS: BP 120/70; PULSE 72; RESP 14; TEMP 36.7; O2SAT 95
[2024-02-18] MEDS: NORMAL SALINE 0.9% IV (11:14)
[2024-02-18] MEDS: DAPTOMYCIN IV (11:14)
[2024-02-18 11:52] LABS: Bedside Glucose 195 mg/dL (74-106)
[2024-02-18] MEDS: oxyCODONE 5 MG Tablet PO ×2 (12:11→22:23)
[2024-02-18] MEDS: Acetaminophen 325 MG Tablet 650 MG PO ×2 (12:11→22:23)
--- NOTE | 2024-02-18 12:43 | CASEMGMT ---
ABDOUL sent [facility] a copy of the prescription for patient's IV antibiotics via [employer]. Elena Soriano TRAIN OPERATIONS SUPERVISOR JOHN
--- NOTE | 2024-02-18 12:55 | PN.ID_ITS ---
Physical Exam Narrative Feeling about the same, no fever, stable back pain, L ankle improved. Const alert and no apparent distress General Appearance: cooperative Resp normal air movement and clear to auscultation bilaterally Cardio regular rate and regular rhythm GI soft to palpation, non-tender and non-distended Skin Skin Narrative: L ankle less red. Wound vac in place on R. Reviewed photos. 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 MRI did not show lumbar osteo/discitis. No veg on TTE. Cont dapto and unasyn. Podiatry following, OR 02/10/[address] Lewis for I&D. Repeat bcx today. No veg seen on GALO. New L ankle pain, swelling, redness, seen by podiatry; less inflammed today, cont inues to improve. Plan on 6 weeks iv dapto at discharge, stop date 03/30/24 if bcx from 02/17/24 remain neg. Will follow (3) Type 2 diabetes mellitus with diabetic polyneuropathy: QUALIFIERS: Diabetes mellitus [facility] insulin use: with [facility] use Qualified Code(s): E11.42 - Type 2 diabetes mellitus with diabetic polyneuropathy; Z79.4 - shelter (current) use of insulin
--- NOTE | 2024-02-18 13:30 | CASEMGMT ---
This ABDOUL and ABDOUL [place] met with patient. Introduced selves and roles at [facility]. SW let patient know that [facility] has accepted her. Patient stated she definitely wants to go to [facility]. Plan: d/c to [facility] pending patient being medically ready. Elena LOPEZ
[2024-02-18 15:00] VITALS: BP 110/59; PULSE 89; RESP 15; TEMP 36.7; O2SAT 95
--- NOTE | 2024-02-18 15:31 | CASEMGMT ---
Discharge Planning Msg rec'd from [facility] that wound vac will be delivered Wednesday. Sultana Obrien DC Planning Asst.
[2024-02-18 16:31] LABS: Bedside Glucose 120 mg/dL (74-106)
--- NOTE | 2024-02-18 17:45 | PCM.PN.HOSP ---
Reason for Visit Reason for Visit: Abdominal pain Subjective Subjective No issues overnight, patient states that she feels pretty well. Needs Dr. Lewis came in irrigated her foot wound is there were some issues with the back. White count still elevated awaiting repeat blood cultures. Patient is pleased because she will be able to go to her SNF of choice now with her discharge being delayed due to ongoing bacteremia. Objective Data Objective Data Vital Signs: Vital Signs Temp Pulse Resp BP Pulse Ox O2 Del Method 98.0 F 89 15 110/59 L 95 Room Air 02/18/24 15:00 02/18/24 15:00 02/18/24 15:00 02/18/24 15:00 02/18/24 15:00 02/18/24 15:00 Oxygen Delivery Method Room Air Weight: 87.3 kg Body Mass Index (BMI) 29.2 Intake & Output: Intake and Output for Last 24 Hours 02/16/24 02/17/24 02/18/24 23:59 23:59 23:59 Intake Total 1293 / 1533 1434.5 / 1674.5 761 / 761 Output Total 400 / 400 Balance 1293 / 1533 1434.5 / 1674.5 361 / 361 Lab / Micro Data 02/18/24 06:44 02/18/24 06:44 Labs: Laboratory Results - last 24 hr 02/17/24 17:24: POC Glucose 126 H 02/17/24 21:47: POC Glucose 283 H 02/18/24 06:44: WBC 12.5 H, RBC 3.65 L, Hgb 11.1 L, Hct 35.0 L, MCV 95.9, MCH 30.4, MCHC 31.7 L, RDW Std Deviation 47.8 H, RDW Coeff of Amos 13.7, Plt Count 566 H, MPV 9.4, Sodium 134 L, Potassium 4.6, Chloride 101, Carbon Dioxide 26.0, Anion Gap 7, BUN 13, Creatinine 0.71, Estim Creat Clear Calc 98.67, Est GFR (MDRD) Af Amer 108, Est GFR (MDRD) Non-Af 89, BUN/Creatinine Ratio 18.2, Glucose 209 H, Calcium 9.2 02/18/24 08:13: POC Glucose 204 H 02/18/24 11:22: POC Glucose 195 H 02/18/24 16:06: POC Glucose 120 H Micro: Microbiology 02/14/24 09:58 Blood Culture (Wb) - Right Hand Blood Culture - Final Meth. resistant Staph. aureus 02/11/24 13:30 Blood Culture (Wb) - Left Hand Bacteria Detection (PCR) - Final Staphylococcus aureus mecA Resistance Marker 02/11/24 13:30 Blood Culture (Wb) - Left Hand Blood Culture - Final Meth. resistant Staph. aureus 02/08/24 08:46 Blood Culture (Wb) - Right Hand Blood Culture - Final Meth. resistant Staph. aureus 02/10/24 13:40 Wound - Right Foot Gram Stain - Final 02/10/24 13:40 Wound - Right Foot Wound Culture - Final Meth. resistant Staph. aureus Corynebacterium striatum 02/10/24 13:40 Wound - Right Foot Anaerobic Culture - Final No anaerobic bacteria isolated. 02/08/24 11:00 Wound - Right Foot Gram Stain - Final 02/08/24 11:00 Wound - Right Foot Wound Culture - Final Meth. resistant Staph. aureus 02/06/24 11:46 Urine, Clean Catch Urine Culture - Final Meth. resistant Staph. aureus 02/06/24 11:29 Mucosa - Nose SARS-CoV-2, Influenza & RSV (PCR) - Final Physical Exam Const alert, oriented x3, no apparent distress and well nourished; Negative for average body habitus or healthy appearing Constitutional Narrative: Obese, middle-aged, white female, lying in bed, patient appears older than stated age, affect is less flat today, patient is nontoxic General Appearance: cooperative HEENT normocephalic, head/scalp atraumatic and moist oral mucous membranes Resp normal respiratory effort, normal air movement, no retractions, no use of accessory muscles and clear to auscultation bilaterally Auscultation: Negative for rales, rhonchi or wheezes Cardio regular rate, regular rhythm, S1 normal heart sound, S2 normal heart sound, no murmurs, no rub, no gallops and no clicks GI normal to inspection, nondistended, normoactive bowel sounds, soft to palpation, non-tender and non-distended Extremity normal to inspection, full ROM, normal capillary refill, no clubbing, cyanosis or edema and no calf tenderness Extremity Narrative: Very minimal left ankle swelling, no significant erythema at this time, new dressing over right foot with VAC in place Neuro oriented x3 and moves all extremities Speech: speech normal Psych thought process normal, cooperative and affect normal Psych Narrative: Very pleasant, makes good eye contact, interacts appropriately Appearance: appropriate Assessment & Plan Assessment/Plan (1) Foot abscess, right: (2) Cellulitis of right lower limb: (3) Bacteremia: PLAN: Plan MRSA bacteremia secondary to right foot cellulitis/wound infection/R Charcot foot -Postop day 7 I&D with wide debridement of necrotic tissue per podiatry -Continue IV daptomycin and Unasyn per infectious disease -GALO was negative for any valvular vegetations or signs of IE and an EF of 45% -Patient has not yet had clearance cultures that are negative -Repeat cultures from 02/17/2024 still pending -MRI of the spine did not show any discitis or osteo -MRI of the left ankle shows some abnormalities however bone structure looks good -continue wound VAC per podiatry--> wound was irrigated again today by podiatry -Nonweightbearing right lower extremity -PICC line in place but will need to be exchanged prior to discharge once blood cultures are clear if needs to be discharged on IV antibiotics MRSA UTI -Suspect related to seeding from blood -Antibiotics per ID Left ankle erythema and swelling -Plain films unremarkable for any bony abnormalities -Much improved Uncontrolled DM-2 -Patient had not been on insulin due to cost -We have found that she may be able to get Lantus for $35 a month which is amenable to her so we will prescribe Lantus at discharge -Fasting sugar today at 209 -Continue Lantus to 40 units -Continue prandial insulin but increase from 13 units -Hemoglobin A1c is 11.2--> will likely need basal and bolus insulin at discharge -Restart oral metformin at discharge -Continue SSI -Cardiac/carb controlled diet Chronic anemia -Hemoglobin is relatively stable -Will continue to monitor Intractable back pain -Remained stable -MRI ruled out osteomyelitis and discitis -Continue PT/OT -Continue pain medication Hypothyroidism -Continue home Synthroid -Continue Liothyronine Narcolepsy -Restart home medication at discharge DVT prophylaxis -Continue subcu Lovenox CODE STATUS Full code Charges/Coding Visit Charges Inpatient E&M: 41358 Subs Hosp L2
[2024-02-18] MEDS: Montelukast 10 MG Tablet PO (20:25)
[2024-02-18 21:00] VITALS: BP 127/69; PULSE 89; RESP 16; TEMP 36.9; O2SAT 95
[2024-02-18 22:00] VITALS: PULSE 89
[2024-02-18 22:44] LABS: Bedside Glucose 185 mg/dL (74-106)
[2024-02-19] MEDS: Ampicillin/Sulbactam 3 GM in 0.9% Normal Saline (100mL MB+) 100 ML IV ×4 (00:29→17:28)
[2024-02-19 03:00] VITALS: BP 126/77; PULSE 82; RESP 16; TEMP 36.3; O2SAT 98
[2024-02-19] MEDS: Liothyronine 5 MCG Tablet 12.5 MCG PO (04:57)
[2024-02-19] MEDS: Levothyroxine 112 MCG Tablet PO (04:57)
[2024-02-19 04:58] VITALS: BMI 29.5
[2024-02-19 07:34] LABS: Hematocrit 34.4 % (37-47); Hemoglobin 10.7 g/dL (12.0-15.0); Mean Corp Hgb Conc 31.1 g/dL (32-36); Mean Corpuscular Hgb 30.2 pg (27.0-32.0); Mean Corpuscular Volume 97.2 fL (81-99); Mean Platelet Vol. 9.2 fl (6.2-12.0); Platelet Count 559 K/mm3 (150-450); RBC Distribution Width CV 13.4 % (11.6-14.6); RBC Distribution Width SD 48.2 fl (35.1-43.9); Red Blood Count 3.54 M/mm3 (4.2-5.4); White Blood Count 11.3 K/mm3 (4.4-11.0)
[2024-02-19 07:57] LABS: Anion Gap 7 (5-15); BUN 16 mg/dL (7-18); BUN/Creat Ratio 23.8 RATIO (10-20); Calcium,Total 9.1 mg/dL (8.5-10.1); Chloride 103 mmol/L (98-107); Creatinine, Serum 0.67 mg/dL (0.55-1.02); EST Glomerular Filtration Rate 95 mL/min (>60); Est Glom Filt Rate - Afr Amer 115 mL/min (>60); Estimated Creatinine Clearance 105.13 ml/min; Glucose 200 mg/dL (74-106); Sodium Level 136 mmol/L (136-145)
[2024-02-19 08:28] VITALS: BP 130/74; PULSE 94; RESP 16; TEMP 36.8; O2SAT 94
[2024-02-19] MEDS: Morphine 2 MG/ML Syringe IV ×2 (08:32→17:28)
[2024-02-19] MEDS: Insulin Lispro 100 UNIT/ML INSULN.PEN SC ×4 (08:34→21:54)
[2024-02-19] MEDS: Insulin Lispro 100 UNIT/ML INSULN.PEN 13 UNIT SC ×2 (08:34→11:55)
[2024-02-19] MEDS: Insulin Glargine-YFGN 100 UNIT/ML Pen 40 UNIT SC (08:35)
[2024-02-19] MEDS: Loratadine 10 MG Tablet PO (08:36)
[2024-02-19] MEDS: Enoxaparin 40 MG/0.4 ML Syringe SC (08:36)
[2024-02-19] MEDS: Ibuprofen 400 MG Tablet PO ×2 (08:36→21:52)
[2024-02-19 09:59] LABS: Bedside Glucose 188 mg/dL (74-106)
--- NOTE | 2024-02-19 11:49 | PN.HOSP_ITS ---
Reason for Visit Reason for Visit: Abdominal pain Subjective Subjective No issues overnight. Patient just states she is hot and would like a fan if possible. I told her would see if we can find one for her. No complaints. Objective Data Objective Data Vital Signs: Vital Signs Temp Pulse Resp BP Pulse Ox O2 Del Method 98.2 F 94 16 130/74 H 94 Room Air 02/19/24 08:28 02/19/24 08:28 02/19/24 08:28 02/19/24 08:28 02/19/24 08:28 02/19/24 08:28 Oxygen Delivery Method Room Air Weight: 88.3 kg Body Mass Index (BMI) 29.5 Intake & Output: Intake and Output for Last 24 Hours 02/17/24 02/18/24 02/19/24 23:59 23:59 23:59 Intake Total 1434.5 / 1674.5 873 / 873 224 / 224 Output Total 400 / 650 250 / 250 Balance 1434.5 / 1674.5 473 / 223 - / Lab / Micro Data 02/19/24 07:15 02/19/24 07:15 Labs: Laboratory Results - last 24 hr 02/18/24 11:22: POC Glucose 195 H 02/18/24 16:06: POC Glucose 120 H 02/18/24 22:15: POC Glucose 185 H 02/19/24 07:15: WBC 11.3 H, RBC 3.54 L, Hgb 10.7 L, Hct 34.4 L, MCV 97.2, MCH 30.2, MCHC 31.1 L, RDW Std Deviation 48.2 H, RDW Coeff of Amos 13.4, Plt Count 559 H, MPV 9.2, Sodium 136, Potassium 4.0, Chloride 103, Carbon Dioxide 27.0, Anion Gap 7, BUN 16, Creatinine 0.67, Estim Creat Clear Calc 105.13, Est GFR (MDRD) Af Amer 115, Est GFR (MDRD) Non-Af 95, BUN/Creatinine Ratio 23.8 H, G lucose 200 H, Calcium 9.1 02/19/24 08:31: POC Glucose 188 H Micro: Microbiology 02/17/24 06:32 Blood Culture (Wb) - Right Hand Blood Culture - Preliminary No growth in 48 hours. 02/14/24 09:58 Blood Culture (Wb) - Right Hand Blood Culture - Final Meth. resistant Staph. aureus 02/11/24 13:30 Blood Culture (Wb) - Left Hand Bacteria Detection (PCR) - Final Staphylococcus aureus mecA Resistance Marker 02/11/24 13:30 Blood Culture (Wb) - Left Hand Blood Culture - Final Meth. resistant Staph. aureus 02/08/24 08:46 Blood Culture (Wb) - Right Hand Blood Culture - Final Meth. resistant Staph. aureus 02/10/24 13:40 Wound - Right Foot Gram Stain - Final 02/10/24 13:40 Wound - Right Foot Wound Culture - Final Meth. resistant Staph. aureus Corynebacterium striatum 02/10/24 13:40 Wound - Right Foot Anaerobic Culture - Final No anaerobic bacteria isolated. 02/08/24 11:00 Wound - Right Foot Gram Stain - Final 02/08/24 11:00 Wound - Right Foot Wound Culture - Final Meth. resistant Staph. aureus 02/06/24 11:46 Urine, Clean Catch Urine Culture - Final Meth. resistant Staph. aureus 02/06/24 11:29 Mucosa - Nose SARS-CoV-2, Influenza & RSV (PCR) - Final Physical Exam Const alert, oriented x3, no apparent distress and well nourished; Negative for average body habitus or healthy appearing Constitutional Narrative: Obese, middle-aged, white female, lying in bed, patient appears older than stated age, appears comfortable, nontoxic, daughter at bedside General Appearance: cooperative HEENT normocephalic, head/scalp atraumatic and moist oral mucous membranes Resp normal respiratory effort, normal air movement, no retractions, no use of accessory muscles and clear to auscultation bilaterally Auscultation: Negative for rales, rhonchi or wheezes Cardio regular rate, regular rhythm, S1 normal heart sound, S2 normal heart sound, no murmurs, no rub, no gallops and no clicks GI normal to inspection, nondistended, normoactive bowel sounds, soft to palpation and non-tender Extremity Extremity Narrative: Trace left ankle swelling and improved with diuretics, erythema has resolved, right lower extremity dressing in place with VAC in place Neuro oriented x3 and no focal motor deficits Speech: speech normal Psych thought process normal and cooperative Psych Narrative: Very pleasant, makes good eye contact, interacts appropriately Assessment & Plan Assessment/Plan (1) Foot abscess, right: (2) Cellulitis of right lower limb: (3) Bacteremia: PLAN: Plan MRSA bacteremia secondary to right foot cellulitis/wound infection/R Charcot foot -Postop day 7 I&D with wide debridement of necrotic tissue per podiatry -Continue IV daptomycin and Unasyn per infectious disease -GALO was negative for any valvular vegetations or signs of IE and an EF of 45% -Patient has not yet had clearance cultures that are negative -Cultures from 02/17/2024 are negative at 48 hours -MRI of the spine did not show any discitis or osteo -MRI of the left ankle shows some abnormalities however bone structure looks good -continue wound VAC per podiatry -Nonweightbearing right lower extremity -PICC line exchanges ordered for Wednesday-discussed with Priscila Francis MRSA UTI -Suspect related to seeding from blood -Antibiotics per ID Left ankle erythema and swelling -Plain films unremarkable for any bony abnormalities -Much improved-swelling is almost improved with low-dose diuretics Uncontrolled DM-2 -Patient had not been on insulin due to cost -We have found that she may be able to get Lantus for $35 a month which is amenable to her so we will prescribe Lantus at discharge -Fasting sugar today at 209 -Increase Lantus to 25 units twice daily -Continue prandial insulin at 13 units 3 times daily -Hemoglobin A1c is 11.2--> insulin will need to be continued at discharge -Restart oral metformin at discharge -Continue SSI -Cardiac/carb controlled diet Chronic anemia -Hemoglobin is relatively stable -Will continue to monitor Intractable back pain -Remained stable -MRI ruled out osteomyelitis and discitis -Continue PT/OT -Continue pain medication Hypothyroidism -Continue home Synthroid -Continue Liothyronine Narcolepsy -Restart home medication at discharge DVT prophylaxis -Continue subcu Lovenox CODE STATUS Full code Disposition: -Plan is for discharge to [facility] on 02/22/2024 -PICC line to be placed on Wednesday a.m. with left upper extremity PICC removed as it was placed while she was bacteremic -Antibiotics will be daptomycin for another 6 weeks with a stop date of 02/28/2024 Charges/Coding Visit Charges Inpatient E&M: 44528 Subs Hosp L2
[2024-02-19] MEDS: DAPTOMYCIN IV (11:51)
[2024-02-19] MEDS: NORMAL SALINE 0.9% IV (11:51)
[2024-02-19 12:57] LABS: Bedside Glucose 175 mg/dL (74-106)
[2024-02-19 13:52] VITALS: BP 111/60; PULSE 100; RESP 18; TEMP 36.8; O2SAT 98
[2024-02-19] MEDS: Furosemide 20 MG/2 ML VIAL IV (13:53)
[2024-02-19] MEDS: Acetaminophen 325 MG Tablet 650 MG PO (14:06)
[2024-02-19] MEDS: oxyCODONE 5 MG Tablet PO (14:06)
[2024-02-19] MEDS: 0.9% Saline Lock 10 ML Syringe IV (17:28)
[2024-02-19 17:41] VITALS: BP 95/71; PULSE 101; RESP 16; TEMP 36.6; O2SAT 94
[2024-02-19 17:52] LABS: Bedside Glucose 190 mg/dL (74-106)
[2024-02-19] MEDS: Montelukast 10 MG Tablet PO (21:52)
[2024-02-19] MEDS: Insulin Glargine-YFGN 100 UNIT/ML Pen 25 UNIT SC (21:56)
[2024-02-19 22:16] LABS: Bedside Glucose 269 mg/dL (74-106)
[2024-02-19 23:33] VITALS: BP 115/56; PULSE 104; RESP 15; TEMP 36.6; O2SAT 91
[2024-02-20] MEDS: Ampicillin/Sulbactam 3 GM in 0.9% Normal Saline (100mL MB+) 100 ML IV ×5 (00:30→23:12)
[2024-02-20] MEDS: Morphine 2 MG/ML Syringe IV ×4 (02:00→19:32)
[2024-02-20 05:44] LABS: Hematocrit 32.2 % (37-47); Hemoglobin 10.1 g/dL (12.0-15.0); Mean Corp Hgb Conc 31.4 g/dL (32-36); Mean Corpuscular Hgb 30.1 pg (27.0-32.0); Mean Corpuscular Volume 95.8 fL (81-99); Mean Platelet Vol. 9.1 fl (6.2-12.0); Platelet Count 571 K/mm3 (150-450); RBC Distribution Width CV 13.4 % (11.6-14.6); RBC Distribution Width SD 47.4 fl (35.1-43.9); Red Blood Count 3.36 M/mm3 (4.2-5.4); White Blood Count 12.1 K/mm3 (4.4-11.0)
[2024-02-20] MEDS: Levothyroxine 112 MCG Tablet PO (05:44)
[2024-02-20] MEDS: Liothyronine 5 MCG Tablet 12.5 MCG PO (05:44)
[2024-02-20 06:14] LABS: Anion Gap 7 (5-15); BUN 16 mg/dL (7-18); BUN/Creat Ratio 26.3 RATIO (10-20); Calcium,Total 9.4 mg/dL (8.5-10.1); Chloride 101 mmol/L (98-107); Creatinine, Serum 0.61 mg/dL (0.55-1.02); EST Glomerular Filtration Rate 107 mL/min (>60); Est Glom Filt Rate - Afr Amer 129 mL/min (>60); Estimated Creatinine Clearance 115.47 ml/min; Glucose 157 mg/dL (74-106); Potassium 3.7 mmol/L (3.5-5.1); Sodium Level 135 mmol/L (136-145)
[2024-02-20] MEDS: Insulin Lispro 100 UNIT/ML INSULN.PEN SC ×3 (06:32→21:00)
[2024-02-20] MEDS: Insulin Lispro 100 UNIT/ML INSULN.PEN 13 UNIT SC (06:33)
[2024-02-20] MEDS: oxyCODONE 5 MG Tablet PO ×3 (09:05→22:16)
[2024-02-20] MEDS: Ibuprofen 400 MG Tablet PO ×2 (09:06→21:01)
[2024-02-20] MEDS: Loratadine 10 MG Tablet PO (09:06)
[2024-02-20] MEDS: Enoxaparin 40 MG/0.4 ML Syringe SC (09:06)
[2024-02-20 09:10] VITALS: BP 131/65; PULSE 97; RESP 16; TEMP 36.4; O2SAT 96
[2024-02-20] MEDS: DAPTOMYCIN IV (11:03)
[2024-02-20] MEDS: NORMAL SALINE 0.9% IV (11:03)
[2024-02-20] MEDS: 0.9% Saline Lock 10 ML Syringe IV (11:04)
--- NOTE | 2024-02-20 12:04 | PN.HOSP_ITS ---
Reason for Visit Reason for Visit: Abdominal pain/nausea/vomiting Subjective Subjective Patient states she is overall feeling pretty well today. Pleased with her blood sugars as they are much improved.. We discussed with her the plan now that her blood cultures are negative at 48 hours to remove her left upper extremity PICC and placed a new PICC tomorrow morning and then plans for discharge Wednesday to [facility]. Objective Data Objective Data Vital Signs: Vital Signs Temp Pulse Resp BP Pulse Ox O2 Del Method 97.6 F L 97 16 131/65 H 96 Room Air 02/20/24 09:10 02/20/24 09:10 02/20/24 09:10 02/20/24 09:10 02/20/24 09:10 02/20/24 09:18 Oxygen Delivery Method Room Air Weight: 88.3 kg Body Mass Index (BMI) 29.5 Intake & Output: Intake and Output for Last 24 Hours 02/18/24 02/19/24 02/20/24 23:59 23:59 23:59 Intake Total 873 / 873 1193 / 1193 224 / 224 Output Total 400 / 650 250 / 250 Balance 473 / 223 943 / 943 224 / 224 Lab / Micro Data 02/20/24 05:07 02/20/24 05:07 Labs: Laboratory Results - last 24 hr 02/19/24 11:55: POC Glucose 175 H 02/19/24 17:01: POC Glucose 190 H 02/19/24 21:50: POC Glucose 269 H 02/20/24 05:07: WBC 12.1 H, RBC 3.36 L, Hgb 10.1 L, Hct 32.2 L, MCV 95.8, MCH 30.1, MCHC 31.4 L, RDW Std Deviation 47.4 H, RDW Coeff of Amos 13.4, Plt Count 571 H, MPV 9.1, Sodium 135 L, Potassium 3.7, Chloride 101, Carbon Dioxide 27.0, Anion Gap 7, BUN 16, Creatinine 0.61, Estim Creat Clear Calc 115.47, Est GFR (MDRD) Af Amer 129, Est GFR (MDRD) Non-Af 107, BUN/Creatinine Ratio 26.3 H, G lucose 157 H, Calcium 9.4 Micro: Microbiology 02/18/24 13:00 Blood Culture (Wb) - Left Forearm Blood Culture - Preliminary No growth in 48 hours. 02/17/24 06:32 Blood Culture (Wb) - Right Hand Blood Culture - Preliminary No growth in 48 hours. 02/14/24 09:58 Blood Culture (Wb) - Right Hand Blood Culture - Final Meth. resistant Staph. aureus 02/11/24 13:30 Blood Culture (Wb) - Left Hand Bacteria Detection (PCR) - Final Staphylococcus aureus mecA Resistance Marker 02/11/24 13:30 Blood Culture (Wb) - Left Hand Blood Culture - Final Meth. resistant Staph. aureus 02/08/24 08:46 Blood Culture (Wb) - Right Hand Blood Culture - Final Meth. resistant Staph. aureus 02/10/24 13:40 Wound - Right Foot Gram Stain - Final 02/10/24 13:40 Wound - Right Foot Wound Culture - Final Meth. resistant Staph. aureus Corynebacterium striatum 02/10/24 13:40 Wound - Right Foot Anaerobic Culture - Final No anaerobic bacteria isolated. 02/08/24 11:00 Wound - Right Foot Gram Stain - Final 02/08/24 11:00 Wound - Right Foot Wound Culture - Final Meth. resistant Staph. aureus 02/06/24 11:46 Urine, Clean Catch Urine Culture - Final Meth. resistant Staph. aureus 02/06/24 11:29 Mucosa - Nose SARS-CoV-2, Influenza & RSV (PCR) - Final Physical Exam Const alert, oriented x3, no apparent distress and well nourished; Negative for average body habitus or healthy appearing Constitutional Narrative: Obese, middle-aged, white female, lying in bed, patient appears older than stated age, appears comfortable, nontoxic General Appearance: cooperative HEENT normocephalic, head/scalp atraumatic and moist oral mucous membranes Resp normal respiratory effort, normal air movement, no retractions, no use of accessory muscles and clear to auscultation bilaterally Auscultation: Negative for rales, rhonchi or wheezes Cardio regular rate, regular rhythm, S1 normal heart sound, S2 normal heart sound, no murmurs, no rub, no gallops and no clicks GI normal to inspection, nondistended, normoactive bowel sounds, soft to palpation and non-tender Extremity normal to inspection, full ROM, normal capillary refill, no clubbing, cyanosis or edema and no calf tenderness Extremity Narrative: Left ankle swelling has resolved, no erythema, right lower extremity with VAC in place and postoperative dressing intact with no signs of bleeding Neuro oriented x3 and no focal motor deficits Speech: speech normal Psych thought process normal and affect normal Psych Narrative: Very pleasant, makes good eye contact, interacts appropriately Assessment & Plan Assessment/Plan (1) Foot abscess, right: (2) Cellulitis of right lower limb: (3) Bacteremia: PLAN: Plan MRSA bacteremia secondary to right foot cellulitis/wound infection/R Charcot foot -Postop day 7 I&D with wide debridement of necrotic tissue per podiatry -Continue IV daptomycin and Unasyn per infectious disease -Patient has not yet had clearance cultures that are negative -Cultures from 02/17/2024 are negative at 48 hours and cultures from 02/18/2024 are negative at 48 hours as well -continue wound VAC per podiatry -Nonweightbearing right lower extremity -PICC line exchange ordered for Wednesday-discussed with Priscila Francis MRSA UTI -Suspect related to seeding from blood -Antibiotics per ID Left ankle erythema and swelling -Plain films unremarkable for any bony abnormalities -Much improved-swelling is almost improved with low-dose diuretics Uncontrolled DM-2 -Patient had not been on insulin due to cost -We have found that she may be able to get Lantus for $35 a month which is amenable to her so we will prescribe Lantus at discharge -Fasting sugar today at 157 and overall much better controlled -Increase Lantus to 28 units twice daily -Continue prandial insulin but will increase from 13 to 18 units as her prandial sugars tend to be high -Hemoglobin A1c is 11.2 on admission--> insulin will need to be continued at discharge--> insulin on JUL was completed -Will discontinue metformin at discharge as she feels this was probably calling significant nausea and vomiting -Continue SSI -Cardiac/carb controlled diet Chronic anemia -Hemoglobin is relatively stable -Will continue to monitor Intractable back pain -Doing much better -MRI ruled out osteomyelitis and discitis -Continue PT/OT -Continue pain medication Hypothyroidism -Continue home Synthroid -Continue Liothyronine Narcolepsy -Restart home medication at discharge DVT prophylaxis -Continue subcu Lovenox CODE STATUS Full code Disposition: -Plan is for discharge to [facility] on 02/22/2024 -PICC line to be placed on Wednesday a.m. with left upper extremity PICC removed as it was placed while she was bacteremic -Antibiotics will be daptomycin for another 6 weeks with a stop date of 02/28/2024 Charges/Coding Visit Charges Inpatient E&M: 21232 Subs Hosp L2
[2024-02-20 12:23] LABS: Bedside Glucose 273 mg/dL (74-106)
[2024-02-20] MEDS: Insulin Glargine-YFGN 100 UNIT/ML Pen 28 UNIT SC ×2 (13:08→21:01)
[2024-02-20 15:28] VITALS: BP 116/69; PULSE 88; RESP 16; TEMP 36.2; O2SAT 98
[2024-02-20] MEDS: Acetaminophen 325 MG Tablet 650 MG PO (15:30)
[2024-02-20 17:32] LABS: Bedside Glucose 122 mg/dL (74-106)
[2024-02-20 19:31] VITALS: BP 110/67; PULSE 94; RESP 16; TEMP 35.7; O2SAT 98
[2024-02-20] MEDS: Montelukast 10 MG Tablet PO (21:01)
[2024-02-20 21:03] VITALS: BP 125/70; PULSE 97; RESP 18; TEMP 35.8; O2SAT 98
[2024-02-20 21:22] LABS: Bedside Glucose 175 mg/dL (74-106)
[2024-02-21 03:15] VITALS: BP 114/63; PULSE 86; RESP 18; TEMP 36.1; O2SAT 96
[2024-02-21] MEDS: Morphine 2 MG/ML Syringe IV ×5 (04:52→20:40)
[2024-02-21] MEDS: Ampicillin/Sulbactam 3 GM in 0.9% Normal Saline (100mL MB+) 100 ML IV ×2 (04:53→13:28)
[2024-02-21] MEDS: 0.9% Saline Lock 10 ML Syringe IV ×5 (04:53→20:40)
[2024-02-21] MEDS: Liothyronine 5 MCG Tablet 12.5 MCG PO (04:54)
[2024-02-21] MEDS: Levothyroxine 112 MCG Tablet PO (04:54)
[2024-02-21 05:05] VITALS: BMI 29.5
[2024-02-21 06:23] LABS: Mean Corp Hgb Conc 31.3 g/dL (32-36); Mean Corpuscular Volume 96.1 fL (81-99); Platelet Count 539 K/mm3 (150-450); RBC Distribution Width CV 13.4 % (11.6-14.6); RBC Distribution Width SD 47.3 fl (35.1-43.9); Red Blood Count 3.33 M/mm3 (4.2-5.4); White Blood Count 10.8 K/mm3 (4.4-11.0)
[2024-02-21 06:51] LABS: Anion Gap 9 (5-15); BUN 15 mg/dL (7-18); BUN/Creat Ratio 24.2 RATIO (10-20); Calcium,Total 9.3 mg/dL (8.5-10.1); Chloride 101 mmol/L (98-107); Creatinine, Serum 0.62 mg/dL (0.55-1.02); EST Glomerular Filtration Rate 105 mL/min (>60); Est Glom Filt Rate - Afr Amer 127 mL/min (>60); Estimated Creatinine Clearance 113.49 ml/min; Glucose 142 mg/dL (74-106); Sodium Level 136 mmol/L (136-145)
--- NOTE | 2024-02-21 07:52 | PN_ITS ---
Subjective Subjective Patient seen early this a.m. with wound nurse for VAC change. Patient states she is feeling better and is ready to be transferred tomorrow to [facility]. Denies pain to the foot. Denies further complaints. Objective Data Objective Data Vital Signs: Vital Signs Temp Pulse Resp BP Pulse Ox O2 Del Method 96.9 F L 86 18 114/63 96 Room Air 02/21/24 03:15 02/21/24 03:15 02/21/24 03:15 02/21/24 03:15 02/21/24 03:15 02/21/24 03:15 Oxygen Delivery Method Room Air Weight: 88.1 kg Body Mass Index (BMI) 29.5 Intake & Output: Intake and Output for Last 24 Hours 02/19/24 02/20/24 02/21/24 23:59 23:59 23:59 Intake Total 1193 / 1193 813 / 813 224 / 224 Output Total 250 / 250 Balance 943 / 943 813 / 813 224 / 224 Lab / Micro Data 02/21/24 05:59 02/21/24 05:59 Labs: Laboratory Results - last 24 hr 02/20/24 12:02: POC Glucose 273 H 02/20/24 17:04: POC Glucose 122 H 02/20/24 20:57: POC Glucose 175 H 02/21/24 05:59: WBC 10.8, RBC 3.33 L, Hgb 10.0 L, Hct 32.0 L, MCV 96.1, MCH 30.0, MCHC 31.3 L, RDW Std Deviation 47.3 H, RDW Coeff of Amos 13.4, Plt Count 539 H, MPV 9.0, Sodium 136, Potassium 4.0, Chloride 101, Carbon Dioxide 26.0, Anion Gap 9, BUN 15, Creatinine 0.62, Estim Creat Clear Calc 113.49, Est GFR (MDRD) Af Amer 127, Est GFR (MDRD) Non-Af 105, BUN/Creatinine Ratio 24.2 H, G lucose 142 H, Calcium 9.3 Micro: Microbiology 02/18/24 13:00 Blood Culture (Wb) - Left Forearm Blood Culture - Preliminary No growth in 48 hours. 02/17/24 06:32 Blood Culture (Wb) - Right Hand Blood Culture - Preliminary No growth in 48 hours. 02/14/24 09:58 Blood Culture (Wb) - Right Hand Blood Culture - Final Meth. resistant Staph. aureus 02/11/24 13:30 Blood Culture (Wb) - Left Hand Bacteria Detection (PCR) - Final Staphylococcus aureus mecA Resistance Marker 02/11/24 13:30 Blood Culture (Wb) - Left Hand Blood Culture - Final Meth. resistant Staph. aureus 02/08/24 08:46 Blood Culture (Wb) - Right Hand Blood Culture - Final Meth. resistant Staph. aureus 02/10/24 13:40 Wound - Right Foot Gram Stain - Final 02/10/24 13:40 Wound - Right Foot Wound Culture - Final Meth. resistant Staph. aureus Corynebacterium striatum 02/10/24 13:40 Wound - Right Foot Anaerobic Culture - Final No anaerobic bacteria isolated. 02/08/24 11:00 Wound - Right Foot Gram Stain - Final 02/08/24 11:00 Wound - Right Foot Wound Culture - Final Meth. resistant Staph. aureus 02/06/24 11:46 Urine, Clean Catch Urine Culture - Final Meth. resistant Staph. aureus 02/06/24 11:29 Mucosa - Nose SARS-CoV-2, Influenza & RSV (PCR) - Final Physical Exam Const alert, oriented x3 and no apparent distress Constitutional Narrative: Generally ill-appearing. HEENT normocephalic Eyes General Eye: normal appearance of both eyes Neck General: normal visual inspection Lymph Lymphatic: no lymphadenopathy noted and no lymphedema noted Resp normal respiratory effort Cardio regular rate and regular rhythm Extremity normal capillary refill and no calf tenderness Extremity Narrative: Right Lower Extremity: Vascular: DP and PT pulses palpable. CFT < 4 seconds to digits. Increased temperature overlying dorsal foot and medial foot. Hair growth diminished to digits. Neurologic: Absent protective sensation secondary to Diabetic Peripheral Polyneuropathy. Musculoskeletal: Muscle strength 5 of 5 age-appropriate. No pain to palpation about the ulcerative site or dorsal foot. Charcot foot deformity noted. Dermatological: Incision distal anterior leg extending to dorsal foot with sutures intact. Incision medial foot with sutures intact. Soft tissue defect dorsal medial foot measuring 5.5 cm x 2.5 cm x 1.0 cm with wound VAC in place. Skin skin turgor normal and no jaundice Neuro moves all extremities Assessment & Plan Assessment/Plan (1) Cellulitis of right lower limb: (2) Foot abscess, right: (3) Type 2 diabetes mellitus with diabetic polyneuropathy: QUALIFIERS: Diabetes mellitus [facility]cc insulin use: with technician terminal and repeater use Qualified Code(s): E11.42 - Type 2 diabetes mellitus with diabetic polyneuropathy; Z79.4 - care home (current) use of insulin (4) Charcot's joint of right foot: PLAN: Plan Patient seen and evaluated Underwent I&D with wide debridement of necrotic tissue and application of wound VAC right foot 02/10/2024. POD #11 Right Lower Extremity: Incision distal anterior leg extending to dorsal foot with sutures intact. Incision medial foot with sutures intact. Soft tissue defect dorsal medial foot measuring 5.5 cm x 2.5 cm x 1.0 cm with wound VAC in place. Wound VAC and dressings removed today and site was inspected. Sutures are intact at incision sites. Tissue appears healthy, ulceration is granulating in well. Erythema of the dorsal foot resolved. There is still some postoperative swelling. Dressings were reapplied with Betadine soaked Adaptic over the incision sites. And wound VAC was applied over the ulceration site/incision sites and inflated to 125 mmHg without leak. Right Lower Extremity is overall improving. Left ankle swelling is improving and rubor decreasing. Recommend continued Sebastian wrap compression in addition to elevation to aid in edema control. WBC decreased, currently at 10.8 Blood cultures demonstrate no growth. Wound culture of new abscess region 02/08/24 demonstrates Staph aureus protein A PCR positive; MRSA PCR positive. Cultures MRSA HbA1c 11.3% on 02/15/24. Surgical tissue cultures demonstrate: Staph aureus (MRSA). PICC line in place, currently on Daptomycin and Unasyn, per ID Medicine team following for medical management Infectious disease consulted for antibiotic management. Plan for 6 weeks IV antibiotic with continued followed by ID. Wound care nurse following for assisting in dressing changes. She is to remain nonweightbearing to the right lower extremity. May utilize walker or knee scooter to maintain compliance. Will continue to elevate foot for postoperative edema control. Awaiting transfer to [facility]. VAC changes will continue at this facility. I will continue to follow while in house. Once discharged will follow with me in the wound care center. Plans for continued wound care in addition to HBO therapy. Jr. Susan Dent.P.M. [facility] [phone]
--- NOTE | 2024-02-21 07:54 | WOUNDNOTE ---
wound photo: right foot
--- NOTE | 2024-02-21 07:55 | WOUNDNOTE ---
wound photo: right foot
[2024-02-21 08:33] LABS: Bedside Glucose 113 mg/dL (74-106)
[2024-02-21 09:15] VITALS: BP 115/60; PULSE 108; RESP 18; TEMP 36.8; O2SAT 96
[2024-02-21] MEDS: Insulin Glargine-YFGN 100 UNIT/ML Pen 28 UNIT SC ×2 (09:35→20:39)
[2024-02-21] MEDS: Enoxaparin 40 MG/0.4 ML Syringe SC (09:35)
[2024-02-21] MEDS: Loratadine 10 MG Tablet PO (09:35)
[2024-02-21] MEDS: Ibuprofen 400 MG Tablet PO ×2 (09:35→20:38)
[2024-02-21] MEDS: NORMAL SALINE 0.9% IV (09:35)
[2024-02-21] MEDS: DAPTOMYCIN IV (09:35)
--- NOTE | 2024-02-21 10:45 | PN_ITS ---
Subjective Subjective Patient seen and examined. She feels well this morning and has no complaints. Review of systems otherwise negative. She is to have a PICC line removed and a new one inserted today and then for likely discharge tomorrow. She has remained hemodynamically stable. She is on room air. Objective Data Objective Data Vital Signs: Vital Signs Temp Pulse Resp BP Pulse Ox O2 Del Method 98.2 F 108 H 18 115/60 96 Room Air 02/21/24 09:15 02/21/24 09:15 02/21/24 09:15 02/21/24 09:15 02/21/24 09:15 02/21/24 09:15 Oxygen Delivery Method Room Air Weight: 194 lb 3.636 oz Body Mass Index (BMI) 29.5 Intake & Output: Intake and Output for Last 24 Hours 02/19/24 02/20/24 02/21/24 23:59 23:59 23:59 Intake Total 1193 / 1193 813 / 813 289 / 289 Output Total 250 / 250 Balance 943 / 943 813 / 813 289 / 289 Lab / Micro Data 02/21/24 05:59 02/21/24 05:59 Labs: Laboratory Results - last 24 hr 02/20/24 12:02: POC Glucose 273 H 02/20/24 17:04: POC Glucose 122 H 02/20/24 20:57: POC Glucose 175 H 02/21/24 05:59: WBC 10.8, RBC 3.33 L, Hgb 10.0 L, Hct 32.0 L, MCV 96.1, MCH 30.0, MCHC 31.3 L, RDW Std Deviation 47.3 H, RDW Coeff of Amos 13.4, Plt Count 539 H, MPV 9.0, Sodium 136, Potassium 4.0, Chloride 101, Carbon Dioxide 26.0, Anion Gap 9, BUN 15, Creatinine 0.62, Estim Creat Clear Calc 113.49, Est GFR (MDRD) Af Amer 127, Est GFR (MDRD) Non-Af 105, BUN/Creatinine Ratio 24.2 H, G lucose 142 H, Calcium 9.3 02/21/24 07:59: POC Glucose 113 H Micro: Microbiology 02/18/24 13:00 Blood Culture (Wb) - Left Forearm Blood Culture - Preliminary No growth in 48 hours. 02/17/24 06:32 Blood Culture (Wb) - Right Hand Blood Culture - Preliminary No growth in 48 hours. 02/14/24 09:58 Blood Culture (Wb) - Right Hand Blood Culture - Final Meth. resistant Staph. aureus 02/11/24 13:30 Blood Culture (Wb) - Left Hand Bacteria Detection (PCR) - Final Staphylococcus aureus mecA Resistance Marker 02/11/24 13:30 Blood Culture (Wb) - Left Hand Blood Culture - Final Meth. resistant Staph. aureus 02/08/24 08:46 Blood Culture (Wb) - Right Hand Blood Culture - Final Meth. resistant Staph. aureus 02/10/24 13:40 Wound - Right Foot Gram Stain - Final 02/10/24 13:40 Wound - Right Foot Wound Culture - Final Meth. resistant Staph. aureus Corynebacterium striatum 02/10/24 13:40 Wound - Right Foot Anaerobic Culture - Final No anaerobic bacteria isolated. 02/08/24 11:00 Wound - Right Foot Gram Stain - Final 02/08/24 11:00 Wound - Right Foot Wound Culture - Final Meth. resistant Staph. aureus 02/06/24 11:46 Urine, Clean Catch Urine Culture - Final Meth. resistant Staph. aureus 02/06/24 11:29 Mucosa - Nose SARS-CoV-2, Influenza & RSV (PCR) - Final Physical Exam Const alert, oriented x3, no apparent distress and well nourished General Appearance: cooperative HEENT normocephalic, head/scalp atraumatic and moist oral mucous membranes Eyes PERRL and EOMs intact bilaterally Neck no lymphadenopathy and supple Lymph Lymphatic: no lymphadenopathy noted and no lymphedema noted Resp Resp Narrative: diminished breath sounds bibasally, no wheezes or crackles. On room air. Cardio regular rate, regular rhythm, S1 normal heart sound and S2 normal heart sound Palpation: normal PMI GI normal to inspection, nondistended, normoactive bowel sounds, soft to palpation and non-tender Extremity Extremity Narrative: both feet wrapped in bandage Skin Skin Narrative: as under extremities Neuro CN's II-XII intact bilaterally, no focal motor deficits and no sensory deficits noted Motor Exam: strength 5/5 throughout and general weakness Psych thought process normal, cooperative and affect normal Appearance: appropriate Assessment & Plan Assessment/Plan (1) Cellulitis of right lower limb: (2) Foot abscess, right: PLAN: Plan #MRSA bacteremia due to right foot cellulitis with right Charcot foot * Today's postop day 11 I&D with wide debridement of necrotic tissue by podiatry. * On IV daptomycin and Unasyn. ID on board. * Repeat blood cultures from 02/16 and 02/18/2024 are negative. * Has wound VAC in place. To be nonweightbearing on the right lower extremity. Wound vac changed today per podiatry. * Podiatry also on board. To have PICC line left upper extremity removed today and new 1 to be inserted today since repeat blood cultures are now negative. * To be on IV daptomycin till 03/30/2024 per ID for a total of 6 weeks. #UTI due to MRSA: Completed a course of antibiotics. #Poorly controlled type 2 diabetes mellitus * Her A1c was 11.2. She had been on metformin on outpatient basis because she could not afford her insulin. Case management has help patient find insulin which will cost $35 per month and patient says she will be able to afford that. * Metformin discontinued as patient felt this was causing significant nausea and vomiting which affected her compliance with it. Will prescribe Lantus at time of discharge. * Insulin sliding scale. Accu-Cheks ACHS. * Now on Lantus 28 units twice daily and insulin lispro 18 units 3 times daily. * #Intractable back pain * feels much better. MRI of lumbar spine done on 02/09/2024 showed scoliosis with degenerative disc disease and spondylosis as well as multilevel neural foraminal narrowing and no evidence of discitis osteomyelitis. * PT/OT on board. * fall precautions. * Continue current pain meds. * #Hypothyroidism:on synthroid and liothyroinine DVT prophylaxis: on lovenox Disposition: for dc to [facility] tomorrow. # Charges/Coding Visit Charges Inpatient E&M: 92593 Subs Hosp L2
--- NOTE | 2024-02-21 11:03 | CASEMGMT ---
Discharge Planning Referral to [facility] cancelled. Sultana Obrien DC Planning Asst.
[2024-02-21] MEDS: Insulin Lispro 100 UNIT/ML INSULN.PEN SC ×3 (13:28→20:39)
--- NOTE | 2024-02-21 13:50 | PCM.OP.PRO ---
Procedure Report Date of Procedure: 02/21/24 Assessment & Plan Assessment/Plan (1) Bacteremia: PLAN: Plan Removal of left upper extremity PICC: The patient was placed in Trendelenburg position. Using clean gloves, the patient's dressing was removed and StatLock was removed. The site was cleansed with ChloraPrep. Gloves were discarded. Hands were sanitized. Sterile gloves were applied. While the patient performed the Valsalva maneuver, Vaseline gauze was placed over the PICC insertion site and the PICC was withdrawn with a slow and steady motion. The PICC was intact and 46 cm in length, which was the documented length at insertion. A sterile occlusive dressing was applied over the Vaseline gauze. The patient tolerated well. The patient remained supine for the reinsertion of a right upper extremity PICC following this removal.
[2024-02-21 15:00] LABS: Bedside Glucose 170 mg/dL (74-106)
[2024-02-21 15:15] VITALS: BP 125/71; PULSE 77; RESP 18; TEMP 36.8; O2SAT 97
--- NOTE | 2024-02-21 16:53 | PN.ID_ITS ---
Physical Exam Narrative Feeling better, no body aches, no fever, no n/v. L ankle improved. 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 MRI did not show lumbar osteo/discitis. No veg on TTE. Cont dapto and unasyn. Podiatry following, OR 02/10/[address] Lewis for I&D. Repeat bcx neg since 02/16. No veg seen on GALO. New L ankle pain, swelling, redness, seen by podiatry; less inflammed today, continues to improve. Plan on 6 weeks iv dapto at discharge, stop date 03/30/24. Will follow, ID followup in 3 weeks. 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
[2024-02-21 17:13] LABS: Bedside Glucose 183 mg/dL (74-106)
[2024-02-21 20:34] VITALS: BP 117/74; PULSE 108; RESP 18; TEMP 36.1; O2SAT 94
[2024-02-21] MEDS: Montelukast 10 MG Tablet PO (20:38)
[2024-02-21 21:07] LABS: Bedside Glucose 213 mg/dL (74-106)
[2024-02-22 03:15] VITALS: BP 117/79; PULSE 90; RESP 14; TEMP 36.6; O2SAT 98
[2024-02-22 06:00] VITALS: BMI 28.4
[2024-02-22] MEDS: Liothyronine 5 MCG Tablet 12.5 MCG PO (06:05)
[2024-02-22] MEDS: Levothyroxine 112 MCG Tablet PO (06:05)
[2024-02-22] MEDS: 0.9% Saline Lock 10 ML Syringe IV (06:09)
[2024-02-22] MEDS: Morphine 2 MG/ML Syringe IV (06:09)
[2024-02-22] MEDS: Acetaminophen 325 MG Tablet 650 MG PO (07:53)
[2024-02-22] MEDS: oxyCODONE 5 MG Tablet PO (07:53)
[2024-02-22] MEDS: Insulin Lispro 100 UNIT/ML INSULN.PEN SC ×2 (07:55→11:26)
[2024-02-22 08:06] LABS: Bedside Glucose 151 mg/dL (74-106)
--- NOTE | 2024-02-22 10:11 | CASEMGMT ---
ABDOUL spoke with patient's daughter Erika. Patient was in the bathroom. ABDOUL let Erika know that [facility] will have patient's wound vac by 2p so transport will not be until after that. Await d/c orders to send to [facility]. ABDOUL completed a PASRR in [employer] system. Elena Soriano LAWN MOWER SHARPENER JOHN
--- NOTE | 2024-02-22 10:18 | WOUNDNOTE ---
Plan is for patient to be discharged to [facility] today. will send patient with wound VAC dressing in place. will disconnect tubing prior so nursing can see how the dressing was applied. wound VAC to be changed 3 times a week.
--- NOTE | 2024-02-22 10:22 | TREXTCAR_ITS ---
Diet Diet Order/Speech Therapy: 02/15/24 15:07 Diet: Consistent Carb - Calorie Controlled Dietary Modifications:: No Added Salt Diet Comments: extra 1-2 oz meat/protein Q meal How many daily calories?: 1800 calorie Routine Orders/Code Status Enema Type: Fleetz Enema Frequency: Daily PRN Suppository Type: Dulcolax 10mg Suppository Frequency: Daily PRN O2 Frequency: PRN Keep PO Greater than or Equal to (%): 90 Wound(s) Right leg: Wound Type: Neuropathic/Diabetic Foot Ulcer right dorsal foot/anterior ankle: Wound Type: 2 incisions with open area s/p I&D Dressing Change: KCI wound VAC Therapies Weight Bearing: Non weight bearing Physical Therapy: Eval and Treat Occupational Therapy: Eval and Treat Problem/Diagnosis (1) Diabetes mellitus type 2, uncontrolled: Status: Acute (2) Bacteremia: Status: Acute Code(s): R78.81 - Bacteremia (3) Type 2 diabetes mellitus with diabetic polyneuropathy: Status: Acute Code(s): E11.42 - Type 2 diabetes mellitus with diabetic polyneuropathy Plan #MRSA bacteremia due to right foot cellulitis with right Charcot foot * Today's postop day 11 I&D with wide debridement of necrotic tissue by podiatry. * On IV daptomycin and Unasyn. ID on board. * Repeat blood cultures from 02/16 and 02/18/2024 are negative. * Has wound VAC in place. To be nonweightbearing on the right lower extremity. Wound vac changed today per podiatry. * Podiatry also on board. To have PICC line left upper extremity removed today and new 1 to be inserted today since repeat blood cultures are now negative. * To be on IV daptomycin till 03/30/2024 per ID for a total of 6 weeks. #UTI due to MRSA: Completed a course of antibiotics. #Poorly controlled type 2 diabetes mellitus * Her A1c was 11.2. She had been on metformin on outpatient basis because she could not afford her insulin. Case management has help patient find insulin which will cost $35 per month and patient says she will be able to afford that. * Metformin discontinued as patient felt this was causing significant nausea and vomiting which affected her compliance with it. Will prescribe Lantus at time of discharge. * Insulin sliding scale. Accu-Cheks ACHS. * Now on Lantus 28 units twice daily and insulin lispro 18 units 3 times daily. * #Intractable back pain * feels much better. MRI of lumbar spine done on 02/09/2024 showed scoliosis with degenerative disc disease and spondylosis as well as multilevel neural foraminal narrowing and no evidence of discitis osteomyelitis. * PT/OT on board. * fall precautions. * Continue current pain meds. * #Hypothyroidism:on synthroid and liothyroinine DVT prophylaxis: on lovenox Disposition: for dc to [facility] tomorrow. # Allergies/Procedures Done in Hospital Allergies clindamycin Allergy (Verified 02/06/24 10:27) Hives pregabalin (From Lyrica) Allergy (Verified 02/06/24 10:27) Swelling bee venom protein (honey bee) Adverse Reaction (Verified 02/06/24 10:27) Anaphylaxis vancomycin Adverse Reaction (Verified 02/06/24 10:27) Other caused renal failure Procedures: 2-D Echocardiogram Type of Care/Length of Stay Estimated LOS: Convalescent Care Less Than 30 days Type of Care Needed: Skilled Rehab Potential: Good Prognosis: Good Additional Orders/Day of Discharge Day of Discharge: 02/22/24 Dietary and Speech Recommendations Dietitian Recommendations/Changes: Will continue 1800 calorie/consistent carbohydrate; no added salt with extra 1-2 oz meat/protein Q meal. Will d/c Chas BID for wound healing support d/t pt refusal and asking to not to receive it. Will monitor weight, as available. Reviewed and approved by Ingrid Jaquez RD, LD. Discharge Plan Admission Admit Date/Time: 02/06/24 13:27 Primary Reason for Your Visit: MRSA bacteremia Attending Provider: Danielle Zavala Primary Care Provider: Cuong Barros Consulting Providers: Luis Miguel Green; Jason Lewis; Mehul Rubio; Danielle Zavala; Siobhan Huang Instructions Patient Instructions: ED Bacteremia, Suspected (Adult) Discharge Orders/Prescriptions Prescriptions: New daptomycin 500 mg recon soln 750 mg IV DAILY 40 Days Rx Instructions: administer over 30 mins. Dx: MRSA bacteremia and osteomyelitis. Stop date 03/30/24. Weekly bmp, cbc, LFT, CK, and ESR. Fax to [phone]. Routine picc care per protocol. acetaminophen 325 mg Tablet 650 mg PO Q6H PRN PRN (Reason: Pain 1-10 Or Fever >100.7) Qty: 0 0RF liothyronine [Cytomel] 5 mcg Tablet 12.5 mcg PO DAILY@0600 Qty: 0 0RF enoxaparin 40 mg/0.4 mL Syringe 40 mg subcut DAILY Qty: 0 0RF insulin glargine-yfgn 100 unit/mL (3 mL) Insulin Pen 28 unit subcut BID Qty: 0 0RF insulin lispro [Humalog KwikPen Insulin] 100 unit/mL Insulin Pen 18 unit subcut TIDAC Qty: 0 0RF hydrocodone-acetaminophen 5-325 mg tablet 1 tab PO Q6H PRN (Reason: pain) 3 Days Qty: 12 0RF Continued montelukast [Singulair] 10 MG tablet 10 mg PO QHS armodafinil 150 MG tablet 150 mg PO BID Patient Comments: TAKE 1 TABLET TWICE DAILY (AM & @ noon is still tired). 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 Referrals / Follow Up: Jason Lewis DPM [Med Staff - Active Staff] - See Referral Note (As directed by Dr. 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
--- NOTE | 2024-02-22 10:26 | DS.PCM_ITS ---
Providers Date of Admission: 02/06/24 Date of Discharge: 02/22/24 Primary Care Physician: Dr. Cuong Barros MD Consultations 02/06/24 17:00 Consult: Onc/Wound/turnaround planner Routine Comment: Reason for Consult:: right leg wound 02/08/24 11:10 Consult: Podiatry Routine
--- NOTE | 2024-02-22 10:26 | PCM.DC.SUM ---
Providers Date of Admission: 02/06/24 Date of Discharge: 02/22/24 Primary Care Physician: Dr. Cuong Barros MD Consultations 02/06/24 17:00 Consult: Onc/Wound/neurology teacher Routine Comment: Reason for Consult:: right leg wound 02/08/24 11:10 Consult: Podiatry Routine Consulting Provider: Jason Lewis Reason for Consult: right foot infection EMERGENT Consult: No Notified: Yes Date Notified: 02/08/24 Time Notified: 11:30 Method of Notification: Text 02/08/24 11:22 Consult: Podiatry Routine Consulting Provider: Jason Lewis Reason for Consult: right foot wound EMERGENT Consult: No Notified: Yes Date Notified: 02/08/24 Time Notified: 11:22 Method of Notification: Text 02/09/24 08:00 Consult: Infectious Disease Routine Consulting Provider: Mehul Rubio Reason for Consult: Right foot infection EMERGENT Consult: No Notified: Yes Date Notified: 02/09/24 Time Notified: 07:57 Method of Notification: Text Reason For Visit: HYPONATREMIA Diagnosis Discharge Diagnosis (1) Diabetes mellitus type 2, uncontrolled: Status: Acute (2) Bacteremia: Status: Acute Code(s): R78.81 - Bacteremia (3) Type 2 diabetes mellitus with diabetic polyneuropathy: Status: Acute Code(s): E11.42 - Type 2 diabetes mellitus with diabetic polyneuropathy Qualifiers: Diabetes mellitus half-way insulin use: with half-way use Qualified Code(s): E11.42 - Type 2 diabetes mellitus with diabetic polyneuropathy; 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 On IV daptomycin and Unasyn. ID on board. Repeat blood cultures from 02/16 and 02/18/2024 are negative. Has wound VAC in place. To be nonweightbearing on the right lower extremity. Wound vac changed today per podiatry. Podiatry also on board. To have PICC line left upper extremity removed today and new 1 to be inserted today since repeat blood cultures are now negative. To be on IV daptomycin till 03/30/2024 per ID for a total of 6 weeks. #UTI due to MRSA: Completed a course of antibiotics. #Poorly controlled type 2 diabetes mellitus Her A1c was 11.2. She had been on metformin on outpatient basis because she could not afford her insulin. Case management has help patient find insulin which will cost $35 per month and patient says she will be able to afford that. Metformin discontinued as patient felt this was causing significant nausea and vomiting which affected her compliance with it. Will prescribe Lantus at time of discharge. Insulin sliding scale. Accu-Cheks ACHS. Now on Lantus 28 units twice daily and insulin lispro 18 units 3 times daily. #Intractable back pain feels much better. MRI of lumbar spine done on 02/09/2024 showed scoliosis with degenerative disc disease and spondylosis as well as multilevel neural foraminal narrowing and no evidence of discitis osteomyelitis. PT/OT on board. fall precautions. Continue current pain meds. #Hypothyroidism:on synthroid and liothyroinine DVT prophylaxis: on lovenox Disposition: for dc to [facility] tomorrow. # Medications at Discharge Home Medications armodafinil 150 mg tablet 150 mg PO BID to stay awake 09/25/16 montelukast 10 mg tablet (Singulair) 10 mg PO QHS allergy 09/25/16 baclofen 10 mg tablet 10 mg PO TID PRN muscle relax 01/01/21 fluticasone propionate 50 mcg/actuation nasal spray,suspension 1 spray intranasal BID PRN allergies 01/01/21 ibuprofen 200 mg tablet (Advil) 400 mg PO BID pain 05/21/21 levocetirizine 5 mg tablet 1 tab PO DAILY PRN Allergies 11/22/21 levothyroxine 112 mcg tablet 112 mcg PO DAILY thyroi 02/09/24 daptomycin 500 mg intravenous solution 750 mg IV DAILY 40 days 02/18/24 acetaminophen 325 mg tablet 650 mg (2 x 325 mg) PO Q6H PRN PRN Pain 1-10 Or Fever >100.7 #0 tabs 02/20/24 enoxaparin 40 mg/0.4 mL subcutaneous syringe 40 mg (0.4 mL) subcut DAILY #0 mL 02/20/24 insulin glargine-yfgn 100 unit/mL (3 mL) subcutaneous pen 28 unit (0.28 mL) subcut BID #0 mL 02/20/24 insulin lispro 100 unit/mL subcutaneous pen (Humalog KwikPen (U-100) Insulin) 18 unit (0.18 mL) subcut TIDAC #0 mL 02/20/24 liothyronine 5 mcg tablet (Cytomel) 12.5 mcg (2.5 x 5 mcg) PO DAILY@0600 #0 tabs 02/20/24 hydrocodone-acetaminophen 5-325mg 5mg-325mg 1 tab PO Q6H PRN pain 3 days #12 tabs 02/22/24 Hospital Course Operations None Procedures None and 2-D Echocardiogram Summary of Care Provided Minutes Spent on Discharge: 57 Hospital Course: Patient is a 58-year-old female with past medical history as outlined which included poorly controlled diabetes mellitus was admitted to the ED on 02/06/2024 with complaint of nausea and vomiting. She also had diarrhea and had fever of 202.7 Fahrenheit. She just felt very weak and tired and came into the ED. Her blood sugar was noted 432 in the ED. She was started on acidosis. She was admitted and managed for hyperglycemia in the setting of poorly controlled diabetes mellitus as well as intractable nausea and vomiting with concerns for gastroparesis. A1c was elevated at 11.8. Patient was on sitagliptin and metformin on outpatient basis. She had not been compliant with the Ceftin because of the cost. She had been on metformin and said her PCP had been slowly increasing the dose but this was also causing her intractable nausea and vomiting so she had not been taking it. She had been prescribed Lantus on outpatient basis but had not taken it because she could not afford it. On admission urinalysis showed evidence of UTI. He urine cultures grew MRSA. She was initially started on Bactrim. She also had hyponatremia which was thought to be pseudohyponatremia due to the hyperglycemia that resolved after the hyperglycemia resolved. She also had hypokalemia and this subsequently resolved with replacement. Of note patient had a right Charcot foot and wound care was on board. Podiatry was consulted due to concerns about her foot being infected. Blood cultures were ordered and grew MRSA. She did for 2D echo which showed no evidence of vegetation. ID was consulted. She did have an allergy to vancomycin so she was started on IV daptomycin. She had incision and drainage with wide debridement of the necrotic tissue of the right foot with application of wound VAC. Repeat blood cultures were initially not clearing. However she subsequently had blood cultures which showed no growth of bacteria. Of note she did have MRI of the foot which did not show any evidence of osteomyelitis or discitis and she also had lumbar spine MRI which showed no evidence of osteomyelitis or discitis. She was continued on IV daptomycin and Unasyn per ID. Case management and social work were able to find insulin that would cost 35 units/month patients that should be able to afford this. She was placed on Lantus 28 units daily and insulin lispro 18 units 3 times daily. Per ID she was to be on IV daptomycin for total of 6 weeks, until 03/30/2024. After the blood cultures came back negative her PICC line was removed and she had a new PICC line inserted. She was discharged to [facility] on 02/22/2024. Patient was seen and examined prior to discharge. She had no complaints and had an uneventful night. She felt well. Review of systems otherwise negative. Labs and vitals reviewed. Home medication reviewed and reconciled. Physical Exam Const alert, oriented x3, no apparent distress and well nourished; Negative for average body habitus or healthy appearing General Appearance: cooperative, comfortable and well kempt Orientation / Consciousness: awake HEENT normocephalic, head/scalp atraumatic, hearing grossly normal bilaterally and moist oral mucous membranes Eyes PERRL, EOMs intact bilaterally and conjunctivae normal Neck no lymphadenopathy, supple and no JVD Neck Narrative: Trachea midline Lymph Lymphatic: no lymphadenopathy noted and no lymphedema noted Resp normal respiratory effort, normal air movement, no retractions, no use of accessory muscles and clear to auscultation bilaterally Auscultation: Negative for rales, rhonchi or wheezes Cardio regular rate, regular rhythm, S1 normal heart sound, S2 normal heart sound, no murmurs, no rub, no gallops and no clicks Palpation: normal PMI GI normal to inspection, nondistended, normoactive bowel sounds, soft to palpation, non-tender and non-distended Extremity normal to inspection, full ROM, normal capillary refill, no clubbing, cyanosis or edema and no calf tenderness Extremity Narrative: both feet wrapped in bandage General Extremity: no tenderness to palpation of joints or extremities Skin Skin Narrative: as under extremities General Skin Exam: no breakdown Wound Narrative: Right foot wrapped in bandage. Neuro oriented x3, CN's II-XII intact bilaterally, moves all extremities, no focal motor deficits, no sensory deficits noted and deep tendon reflexes 2+ bilaterally Sensorium / Orientation: awake and alert Speech: speech normal Motor Exam: strength 5/5 throughout and general weakness Psych thought process normal, cooperative and affect normal Psych Narrative: Very pleasant, makes good eye contact, interacts appropriately Appearance: appropriate Weight / BMI Weight Weight: 187 lb 2.759 oz Body Mass Index (BMI) 28.4 ABG / Lab / Microbiology Data 02/21/24 05:59 02/21/24 05:59 Laboratory: Laboratory Results - last 24 hr 02/21/24 13:27: POC Glucose 170 H 02/21/24 16:43: POC Glucose 183 H 02/21/24 20:37: POC Glucose 213 H 02/22/24 07:40: POC Glucose 151 H Microbiology: Microbiology 02/17/24 06:32 Blood Culture (Wb) - Right Hand Blood Culture - Final No growth in 5 days. 02/18/24 13:00 Blood Culture (Wb) - Left Forearm Blood Culture - Preliminary No growth in 48 hours. 02/14/24 09:58 Blood Culture (Wb) - Right Hand Blood Culture - Final Meth. resistant Staph. aureus 02/11/24 13:30 Blood Culture (Wb) - Left Hand Bacteria Detection (PCR) - Final Staphylococcus aureus mecA Resistance Marker 02/11/24 13:30 Blood Culture (Wb) - Left Hand Blood Culture - Final Meth. resistant Staph. aureus 02/08/24 08:46 Blood Culture (Wb) - Right Hand Blood Culture - Final Meth. resistant Staph. aureus 02/10/24 13:40 Wound - Right Foot Gram Stain - Final 02/10/24 13:40 Wound - Right Foot Wound Culture - Final Meth. resistant Staph. aureus Corynebacterium striatum 02/10/24 13:40 Wound - Right Foot Anaerobic Culture - Final No anaerobic bacteria isolated. 02/08/24 11:00 Wound - Right Foot Gram Stain - Final 02/08/24 11:00 Wound - Right Foot Wound Culture - Final Meth. resistant Staph. aureus 02/06/24 11:46 Urine, Clean Catch Urine Culture - Final Meth. resistant Staph. aureus 02/06/24 11:29 Mucosa - Nose SARS-CoV-2, Influenza & RSV (PCR) - Final D/C Instructions Discharge Diet: Low fat / Low cholesterol and 1800 Calorie Control Diet Meaningful Use Info Meaningful Use Meaningful Use Diagnoses (Choose all that apply): None applicable Ischemic Stroke Statin Dosing Therapy Reference: STATIN DOSE THERAPY REFERENCE: * Patients > 75 years receive moderate or high dose statin therapy. * Patients 75 years or YOUNGER should receive HIGH intensity statin dose unless contraindicated. You will be required to document reason for non-treatment if statin daily dose does not meet guidelines. HIGH DOSE STATIN THERAPY DAILY Atorvastatin > than or = to 40 mg Rosuvastatin > than or = to 20 mg Amlodipine + Atorvastatin > than or = to 2.5/40 mg Ezetimibe + Simvastatin 10/80 mg Simvastatin 80mg Discharge Plan Admission Admit Date/Time: 02/06/24 13:27 Primary Reason for Your Visit: MRSA bacteremia Attending Provider: Danielle Zavala Primary Care Provider: Cuong Barros Consulting Providers: Luis Miguel Green; Jason Lewis; Mehul Rubio; Danielle Zavala; Siobhan Huang Instructions Patient Instructions: ED Bacteremia, Suspected (Adult) Discharge Orders/Prescriptions Prescriptions: New daptomycin 500 mg recon soln 750 mg IV DAILY 40 Days Rx Instructions: administer over 30 mins. Dx: MRSA bacteremia and osteomyelitis. Stop date 03/30/24. Weekly bmp, cbc, LFT, CK, and ESR. Fax to [phone]. Routine picc care per protocol. acetaminophen 325 mg Tablet 650 mg PO Q6H PRN PRN (Reason: Pain 1-10 Or Fever >100.7) Qty: 0 0RF liothyronine [Cytomel] 5 mcg Tablet 12.5 mcg PO DAILY@0600 Qty: 0 0RF enoxaparin 40 mg/0.4 mL Syringe 40 mg subcut DAILY Qty: 0 0RF insulin glargine-yfgn 100 unit/mL (3 mL) Insulin Pen 28 unit subcut BID Qty: 0 0RF insulin lispro [Humalog KwikPen Insulin] 100 unit/mL Insulin Pen 18 unit subcut TIDAC Qty: 0 0RF hydrocodone-acetaminophen 5-325 mg tablet 1 tab PO Q6H PRN (Reason: pain) 3 Days Qty: 12 0RF Continued montelukast [Singulair] 10 MG tablet 10 mg PO QHS armodafinil 150 MG tablet 150 mg PO BID Patient Comments: TAKE 1 TABLET TWICE DAILY (AM & @ noon is still tired). 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 Referrals / Follow Up: Jason Lewis DPM [Med Staff - Active Staff] - See Referral Note (As directed by Dr. Lewis) Mehul Rubio MD [Med Staff - Active Staff] - Within 2 Weeks Cuong Barros MD [Primary Care Provider] - In 1 Week (After discharge from rehab) Disposition Disposition (needs filled in before D/C Order can be placed): Shelter Facility Charges/Coding Visit Charges Inpatient E&M: 69787 Disch Hosp >30min
[2024-02-22 10:27] VITALS: BP 113/68; PULSE 98; RESP 18; TEMP 36.3; O2SAT 95
[2024-02-22] MEDS: NORMAL SALINE 0.9% IV (10:28)
[2024-02-22] MEDS: DAPTOMYCIN IV (10:28)
[2024-02-22] MEDS: Ibuprofen 400 MG Tablet PO (10:30)
[2024-02-22] MEDS: Loratadine 10 MG Tablet PO (10:30)
[2024-02-22] MEDS: Insulin Glargine-YFGN 100 UNIT/ML Pen 28 UNIT SC (10:30)
[2024-02-22] MEDS: Enoxaparin 40 MG/0.4 ML Syringe SC (10:32)
[2024-02-22 11:45] LABS: Bedside Glucose 242 mg/dL (74-106)
--- NOTE | 2024-02-22 12:22 | CASEMGMT ---
SW sent all necessary information to [facility] to obtain a level of care. Elena Soriano [employer] SE[employer] JOHN
--- NOTE | 2024-02-22 12:54 | CASEMGMT ---
Discharge Planning Discharge orders, wound vac order, signed med list, and loc sent to [facility] via [facility]. Physicians will transport patient by wheelchair (cot may be sent d/t availability) at . Nursing, SW, patient, and her daughter updated. Sultana Obrien DC Planning Asst.
== END 2024-02-22 15:07 | DRG 570 ==
LOC: ED 12:29 → PCU 13:40
PROVIDERS: Anesthesiology; Internal Medicine; Nurse Practitioner; Student in an Organized Health Care Education/Training Program; Emergency Provider Emergency Medicine; PCP Family Medicine; Visit Provider Student in an Organized Health Care Education/Training Program
PROC: 0JBQ0ZZ Excision of Right Foot Subcutaneous Tissue and Fascia, Open Approach (ICD-10-PCS; principal; 2024-02-10 11:50)
DX: L03.115 Cellulitis of right lower limb (principal); E11.10 Type 2 diabetes mellitus with ketoacidosis without coma; R78.81 Bacteremia; L97.212 Non-pressure 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; L02.611 Cutaneous abscess of right foot; N39.0 Urinary tract infection, site not specified; E03.9 Hypothyroidism, unspecified; E11.42 Type 2 diabetes mellitus with diabetic polyneuropathy; B95.62 Methicillin resistant Staphylococcus aureus infection as the cause of diseases classified elsewhere; G47.419 Narcolepsy without cataplexy; E11.610 Type 2 diabetes mellitus with diabetic neuropathic arthropathy; E11.43 Type 2 diabetes mellitus with diabetic autonomic (poly)neuropathy; M41.87 Other forms of scoliosis, lumbosacral region; E11.622 Type 2 diabetes mellitus with other skin ulcer; E11.628 Type 2 diabetes mellitus with other skin complications; E86.0 Dehydration; E87.6 Hypokalemia; Z79.4 Long term (current) use of insulin; M47.816 Spondylosis without myelopathy or radiculopathy, lumbar region; M99.63 Osseous and subluxation stenosis of intervertebral foramina of lumbar region; K31.84 Gastroparesis; M51.369 Other intervertebral disc degeneration, lumbar region without mention of lumbar back pain or lower extremity pain; Z91.141 Patient's other noncompliance with medication regimen due to financial hardship; Z79.1 Long term (current) use of non-steroidal anti-inflammatories (NSAID); Z79.01 Long term (current) use of anticoagulants; Z79.84 Long term (current) use of oral hypoglycemic drugs; Z79.891 Long term (current) use of opiate analgesic; Z79.890 Hormone replacement therapy; Z79.899 Other long term (current) drug therapy; Z86.16 Personal history of COVID-19; Z87.891 Personal history of nicotine dependence
CPT/HCPCS: 36415; 36569; 36600; 70450; 71046; 72148; 73610; 73630; 73723; 74176; 80048; 80053; 81001; 82009; 82803; 82962; 83036; 83605; 83690; 84443; 85025; 85027; 87040; 87070; 87075; 87077; 87086; 87088; 87102; 87149; 87186; 87205; 87206; 87631; 87640; 88305; 93005; 93306; 93312; 93320; 93325; 97110; 97162; 97166; 97530; 97535; 97802; 97803; 99284; A9575; J0878; J7030; J7040; Q9957; A4216; J0295; J1940; J2405; J3490

== ENCOUNTER → 2024-03-22 | Outpatient (CLI) | payer MEDICAID, SELFPAY ==
[2024-03-22 12:56] LABS: Amphetamine Urine VISTA NEGATIVE (<1000 ng/mL); Barbiturate Urine VISTA NEGATIVE (< 200 ng/mL); Benzodiazepine Urine VISTA NEGATIVE (< 200 ng/mL); Cocaine Urine VISTA NEGATIVE (< 300 ng/mL); Ecstacy Urine VISTA NEGATIVE (< 500 ng/mL); Methadone Urine VISTA NEGATIVE (< 300 ng/mL); PCP Urine VISTA NEGATIVE (< 25 ng/mL); THC Urine VISTA NEGATIVE (< 50 ng/mL); Vista UDS pH Range 4
== END | disposition home or self-care (01) ==
PROVIDERS: PCP Family Medicine; Referring Provider Anesthesiology Pain Medicine; Visit Provider Anesthesiology Pain Medicine
DX: F11.20 Opioid dependence, uncomplicated (principal)
CPT/HCPCS: 80307

== ENCOUNTER 2024-03-23 09:15 | Outpatient (RCR) | payer MEDICAID, SELFPAY ==
[2024-03-09 10:15] VITALS: BP 115/75; PULSE 118; RESP 20; TEMP 36.4
--- NOTE | 2024-03-09 13:25 | PCM.WC.HP ---
History of Present Illness Date of Service: 03/09/24 Chief Complaint: Right foot ulceration History of Wound: This 58-year-old female presents for care of right foot wound. She was previously admitted to the [facility] 02/06/2024 secondary to starvation ketosis with elevated blood sugars. During hospital stay she did develop new acute infection in the dorsal aspect of the right foot and underwent I&D with application of a wound VAC on 02/10/2024. She was noted to be healing well following surgery and was discharged to [facility] for continued application of the wound VAC. She is now since been released from [facility] and wound VAC is now discontinued secondary to insurance coverage. Wound has however granulated in well and sutures are still intact at the incision sites. No signs of infection. States her blood sugars are doing well now that she is on long-acting insulin. Patient denies constitutional symptoms. Denies further complaints. [facility] Medical History (Updated 03/09/24 @ 13:[address] 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 Home Medications ?Medication ?Instructions ?Recorded ?Last Taken ?Type armodafinil 150 mg tablet 150 mg PO BID to stay awake 09/25/16 Unknown History montelukast 10 mg tablet 10 mg PO QHS allergy 09/25/16 Unknown History (Singulair) baclofen 10 mg tablet 10 mg PO TID PRN muscle relax 01/01/21 Unknown History ibuprofen 200 mg tablet (Advil) 400 mg PO BID pain 05/21/21 Unknown History levocetirizine 5 mg tablet 1 tab PO DAILY PRN Allergies 11/22/21 Unknown History levothyroxine 112 mcg tablet 112 mcg PO DAILY thyroi 02/09/24 Unknown History daptomycin 500 mg intravenous 750 mg IV DAILY 40 days 02/18/24 Unknown Rx solution acetaminophen 325 mg tablet 650 mg (2 x 325 mg) PO Q6H PRN PRN 02/20/24 Unknown Rx Pain 1-10 Or Fever >100.7 #0 tabs insulin glargine-yfgn 100 unit/mL 28 unit (0.28 mL) subcut BID #0 mL 02/20/24 Unknown Rx (3 mL) subcutaneous pen insulin lispro 100 unit/mL 18 unit (0.18 mL) subcut TIDAC #0 02/20/24 Unknown Rx subcutaneous pen (Humalog KwikPen mL (U-100) Insulin) liothyronine 5 mcg tablet (Cytomel) 12.5 mcg (2.5 x 5 mcg) PO 02/20/24 Unknown Rx DAILY@0600 #0 tabs hydrocodone-acetaminophen 5-325mg 1 tab PO Q6H PRN pain 3 days #12 02/22/24 Unknown Rx 5mg-325mg tabs Allergy/AdvReac Type Severity Reaction Status Date / Time clindamycin Allergy Hives Verified 03/09/24 10:41 pregabalin (From Lyrica) Allergy Swelling Verified 03/09/24 10:41 bee venom protein (honey bee) AdvReac Anaphylaxis Verified 03/09/24 10:41 vancomycin AdvReac Other Verified 03/09/24 10:41 Family History Father CVA (cerebral vascular accident) Clotting disorder Seizures Mother Osteoarthritis Other Charcot's joint of right foot Diabetes Heart disease Hypertension 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 alcohol intake: current alcohol intake frequency: holidays/special occasions only substance use type: does not use ROS Constitutional Constitutional: Denies anorexia, chills, fatigue or fever(s) Eyes Eyes: Denies blurry vision, change in vision or double vision ENT HEENT: Denies dysphagia, nasal congestion, sinus pressure or sore throat Cardiovascular Cardiovascular: Denies chest pain, claudication or palpitations Respiratory/Chest Respiratory/Chest: Denies cough, shortness of breath at rest or wheezing Gastrointestinal Gastrointestinal: Denies abdominal pain, constipation, diarrhea, nausea or vomiting Genitourinary Genitourinary: Denies dysuria, hematuria or urinary urgency Musculoskeletal Musculoskeletal: Denies joint pain, joint stiffness or joint swelling Integumentary Integumentary: Denies jaundice, lesions, pruritus or rash Neurologic Neurologic: Denies dizziness, numbness or seizures Psychiatric Psychiatric: Denies anxiety or depression Endocrine Endocrinology: Denies cold intolerance or heat intolerance Hematologic/Lymphatic Hematologic/Lymphatic: Denies easy bleeding or easy bruising Vital Signs Vital Signs Vital Signs: 03/09/24 10:15 Temperature 97.5 F L Temperature Source Oral Pulse Rate 118 H Respiratory Rate 20 H Blood Pressure 115/75 Blood Pressure Mean 88 Blood Pressure Source Monitor Physical Exam Const alert, oriented x3 and no apparent distress General Appearance: cooperative HEENT normocephalic Eyes General Eye: normal appearance of both eyes Neck General: normal visual inspection Lymph Lymphatic: no lymphadenopathy noted and no lymphedema noted Resp normal respiratory effort Cardio regular rate and regular rhythm Extremity normal capillary refill, no calf tenderness and no pedal edema Extremity Narrative: Right lower extremity: Vascular: DP and PT pulses palpable with adequate capillary fill time to the digits. Normal temperature gradient. Hair growth is absent to the digits. Neurologic: Gross sensation intact. Absent protective sensation consistent with diabetic peripheral polyneuropathy Musculoskeletal: No pain to palpation about the ulcerative site secondary to diabetic peripheral polyneuropathy. There is a Charcot foot deformity noted of the right foot. Dermatologic: Incision site medial foot with intact sutures. No signs of infection. Incision site anterior leg with intact sutures no signs of infection. There is an ulceration dorsally along the midfoot medial to the incision site with healthy granular tissue. This has granulated in well with the addition of a wound VAC from previously seen in the hospital prior to discharge. Ulceration site demonstrates no signs of infection. Skin skin turgor normal and no jaundice Neuro moves all extremities Debridement Note Debridement Note Wound debrided: Right foot Laterality: Right Wound Grade/Stage: Gonzalez stage III Type of Debridement: Excisional debridement Anesthesia Used: 5% Lidocaine Gel Depth: Down to and including healthy tissue and in the subcutaneous layer Percentage of wound debrided: 100 Instrument Used: 5mm curette and #15 blade Tissue Removed: Fibrous, devitalized subcutaneous, biofilm, slough Severity: Fat Layer Exposed Amount of bleeding with debridement: Mild Bleeding Controlled with: Compression and gauze Patient tolerated procedure: Patient tolerated procedure well Post-Debridement Measurements and Additional Note: Post-Debridement Measurements/Treatment - Nurse 1 - General Ulcer Assessment Start: 03/09/24 10:14 Freq: Status: Active Protocol: RUKHSANA Activity Type Activity Date Activity User E-sign Co-sign Detail Recorded Client Recorded Date Recorded By Document 03/09/24 10:15 DL [id number] 03/09/24 10:38 DL 03/09/24 10:15 - Today's Visit Information Type of service Initial Visit Arrival Mode Wheelchair Transfer Assistance None Patient Identification Verified (Name & Yes ) Patient Requires Transmission-Based No Precautions Finger Stick Blood Sugar(mg/dl) (if 130 indicated): Blood Sugar Stated by Patient Vital Signs Temperature (97.8 F-99.1 F) 97.5 F L Temperature Source Oral Pulse Rate (60-100) 118 H Pulse Location Monitor Respiratory Rate (12-18) 20 H Respiratory rate source Observation Blood Pressure (90/60-120/80) 115/75 Blood Pressure Mean 88 Source Monitor Pain Scale: 0-10 Numeric Is Patient Pain Free? Yes Communication Assessment Preferred language Pashto Percussion Instrument Repairer Required No Able to Read Yes Able to Write Yes Communication Tools None Right Hearing Abillity Normal Left Hearing Abillity Normal Visual Assistive Devices Glasses Teaching Assessment Preferences Verbal,Written Barriers to Learning None Readiness To Learn Good Willingness to Engage in Self Management Med Activies Readiness to Engage in Self Management Med Activities Anxiety Level Calm Cooperation Cooperative Perception Coherent Interest in Health Problem Asks Questions Education Importance Acknowledges Need Smoking Status Former smoker Is Patient Diabetic Yes Functional Assessment Recent Decline in Ability to Perform Denies Any Declines Culture/Anglican/[place] Developer Cultural/Anglican Needs that may affect No Treatment Plan Would you allow our hospital in home baby sitter to No meet you for the purpose of spiritual/ emotional support? Olap Developer to contact place of denominational No Teaching: Wound Center *Hyperbaric Medicine (HBO) -Person Taught Patient Dressing Your Wound -Person Taught Patient Discharge Instructions -Person Taught Patient WC - Nurse 1 - General Ulcer Measurement Start: 03/09/24 10:14 Freq: Status: Active Protocol: Activity Type Activity Date Activity User E-sign Co-sign Detail Recorded Client Recorded Date Recorded By Document 03/09/24 10:15 JENIFFER [id number] 03/09/24 10:38 DL 03/09/24 10:15 Wound Center Nurse 1 #6 R Med Foot -Current Size (cm) - Length 0.5 -Current Size (cm) - Width 0.5 -Current Size (cm) - Depth 0.1 -Total Square Cm 0.25 -Photo Taken Yes -Exudate Amt None Present -Wound Margin Distinct, Outline Attached -Granulation Amt Small (1-33%) -Granulation Quality [place] -Necrosis Amt Small (1-33%) -Necrotic Tissue Type Adherent Slough -Structure Exposed N/A -Texture (Marie-wound Skin Appearance) Localized Edema ,Scarring -Moisture (Marie-wound Skin Appearance) No Abnormality -Color (Marie-wound Skin Appearance) No Abnormality -Temperature (Marie-wound Skin No Abnormality Appearance) (Pt Warm) -Tenderness on Palpation (Marie-wound No Skin Appearance) -Ulcer Cleansing Soap and Water -Foul Odor after Cleansing No -Anesthetic Used 5% Lidocaine Gel #5 RDorsal/Anterior Ankle -Current Size (cm) - Length 12 -Current Size (cm) - Width 2.1 -Current Size (cm) - Depth 0.1 -Total Square Cm 25.2 -Photo Taken Yes -Exudate Amt Medium -Exudate Type Serosanguineous -Wound Margin Distinct, Outline Attached -Granulation Amt Large (67-100%) -Granulation Quality Red -Necrosis Amt Small (1-33%) -Necrotic Tissue Type Adherent Slough -Structure Exposed N/A -Texture (Marie-wound Skin Appearance) Localized Edema ,Scarring -Moisture (Marie-wound Skin Appearance) No Abnormality -Color (Marie-wound Skin Appearance) No Abnormality -Temperature (Marie-wound Skin No Abnormality Appearance) (Pt Warm) -Tenderness on Palpation (Marie-wound No Skin Appearance) -Ulcer Cleansing Soap and Water -Foul Odor after Cleansing No -Anesthetic Used 4% Lidocaine Solution Right Calf (cm) 32 Right Ankle (cm) 19.5 WC - Nurse 2 - General Ulcer CM Notes Start: 10/17/24 10:14 Freq: Status: Active Protocol: Activity Type Activity Date Activity User E-sign Co-sign Detail Recorded Client Recorded Date Recorded By Document 03/09/24 10:59 [facility] [id number] 03/09/24 11:16 [facility] 03/09/24 10:59 Wound Center Nurse 2 #6 R Med Foot -Post Debridement (cm) - Length 0 -Post Debridement (cm) - Width 0 -Post Debridement (cm) - Depth 0 -Total Square (Post) (cm) 0 -Area of Debridement (cm) - Length 0 -Area of Debridement (cm) - Width 0 -Total Square (Area) (cm) 0 -Wound/Ulcer Outcome Healed- Epithelialized -Wound Comment(s) sutures removed #5 RDorsal/Anterior Ankle -Time 10:59 -Correct Patient Yes -Correct Side, Site, Position Yes -Correct Procedure Yes -Procedure Performed Yes -Type of Procedure Debridement -Clinical Debridement Subcutaneous -Tissue Removed Subcutaneous -Post Debridement (cm) - Length 5.5 -Post Debridement (cm) - Width 2.5 -Post Debridement (cm) - Depth 0.1 -Total Square (Post) (cm) 13.75 -Area of Debridement (cm) - Length 5.5 -Area of Debridement (cm) - Width 2.5 -Total Square (Area) (cm) 13.75 -Tunneling No -Undermining/Tunneling No -Circular Undermining No -Wound/Ulcer Outcome Not Healed -Ulcer Cleansing Rinsed/ Irrigated with Saline -Foul Odor after Cleansing No -Bioengineered Tissue No -Bleeding Controlled with Pressure -Treatment Response Procedure Tolerated Well -Debridement - Subq, 1st 20sq cm Yes -Wound Comment(s) sutures removed Pain Scale: 0-10 Numeric Is Patient Pain Free? Yes WC - Nurse 3 - General Ulcer D/C NN Start: 03/09/24 10:14 Freq: Status: Active Protocol: Activity Type Activity Date Activity User E-sign Co-sign Detail Recorded Client Recorded Date Recorded By Document 03/09/24 11:38 RB [id number] 03/09/24 11:39 RB 03/09/24 11:38 Wound Care Center Nurse 3 #5 RDorsal/Anterior Ankle -Ulcer Cleansing Rinsed/ Irrigated with Saline -Primary Dressing Applied Promogran Cherelle Matter -Other Dressing abd -Primary Dressing Covered/Secured with Dry Gauze & Roll Gauze, Secured with Tape -Promogran Cherelle Matter 3 Right -Tubular Bandage Single Layer -Size of Tubigrip Used Size D -Size D ($) 1 Treatment Response Procedure Tolerated Well Pain Scale: 0-10 Numeric Is Patient Pain Free? Yes WC - Visit Discharge Discharge Condition Stable Ambulatory Status Wheelchair Transportation Private Auto Medication Reconcilliation completed & No provided to patient/care provider Clinical Summary of Care Provided Yes Assessment/Plan Assessment/Plan (1) 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: CODE(S): L97.512 - 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 (2) Type 2 diabetes mellitus with foot ulcer: CODE(S): E11.621 - Type 2 diabetes mellitus with foot ulcer; L97.509 - Non-pressure chronic ulcer of other part of unspecified foot with unspecified severity (3) Charcot's joint of right foot: CODE(S): M14.671 - Charcot's joint, right ankle and foot (4) Type 2 diabetes mellitus with diabetic polyneuropathy: CODE(S): E11.42 - Type 2 diabetes mellitus with diabetic polyneuropathy QUALIFIERS: Diabetes mellitus [facility] insulin use: with [facility] use Qualified Code(s): E11.42 - Type 2 diabetes mellitus with diabetic polyneuropathy; Z79.4 - correction (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 DOS 02/10/2024, POD #28 Sutures were intact at incision sites medial foot and anterior leg with no signs of infection. Sutures were removed atraumatically today. Skin well coapted at incision sites. Ulceration dorsal foot has granulated in well versus her previous visit in the hospital with the application of wound VAC. Wound VAC has since been discontinued when she did leave the facility earlier this week. Ulceration predebridement measures 5.4 cm x 2.4 cm x 0.2 cm Ulceration did undergo debridement as noted on clinical panel above. Postdebridement measurements 5.5 cm x 2.5 cm x 0.2 cm. Cherelle was applied to the ulceration base and dressed with dry sterile dressing. She is to change dressing daily. Will apply for EpiFix graft for application at next visit. Will remain nonweightbearing to the right lower extremity with the assistance of walker/knee scooter/wheelchair. Discussed medical clearance for HBO and she will meet with Dr. Howard next week. She has had previous lab work drawn while in hospital and is recent as yesterday, 03/08/2024 [facility]. Did have recent chest x-ray during her hospital stay in January 2024 along with echocardiogram. Will still order EKG for evaluation prior to dive. HgbA1c during hospital admission was 11.3% on 02/15/2024. PICC line in place, currently on daptomycin and Unasyn per ID with completion in March 2024. The following work up and care recommendations were made: Dressing: Cherelle and dry sterile dressing. Change dressing daily Wash: Soap and water may pat area dry. Tissue growth optimization: Cherelle Offload: Nonweightbearing to the right lower extremity Vascular: DP and PT pulses palpable with adequate capillary fill time. Vascular status not impacting healing at this time. Edema: Edema well-controlled. Will continue with Tubigrip stocking application Infection: No signs of infection. Currently on IV antibiotics via PICC line. Will continue daptomycin and Unasyn per ID Pain: No pain to the ulcerative site secondary to diabetic peripheral polyneuropathy Host factors: DM type II with peripheral polyneuropathy, uncontrolled. Charcot foot right foot I answered all the patient's questions. To return to the wound healing center in 1 week or call sooner if the patient has any questions or concerns.
[2024-03-16 10:34] VITALS: BP 112/66; PULSE 90; RESP 18; TEMP 36.2
--- NOTE | 2024-03-16 11:57 | PN.PCM_ITS ---
History of Present Illness Date of Service: 03/16/24 Chief Complaint: Right foot ulceration History of Wound: This 58-year-old female presents for care of right foot wound. She was previously admitted to the [facility] 02/06/2024 secondary to starvation ketosis with elevated blood sugars. During hospital stay she did develop new acute infection in the dorsal aspect of the right foot and underwent I&D with application of a wound VAC on 02/10/2024. She was noted to be healing well following surgery and was discharged to [facility] for continued application of the wound VAC. She is now since been released from [facility] and wound VAC is now discontinued secondary to insurance coverage. Wound has however granulated in well and sutures are still intact at the incision sites. No signs of infection. States her blood sugars are doing well now that she is on long-acting insulin. Patient denies constitutional symptoms. Denies further complaints. Subjective Subjective This is a 58-year-old female who continues to follow with the wound care center for right dorsal foot ulceration. She had previously undergone I&D on 02/10/2024 of the right foot. Continues to heal well and is changing dressing daily. States she is meeting with Dr. Howard today for HBO clearance. States blood sugars are improving with insulin. Denies constitutional symptoms. Denies further complaints. Objective Data Objective Data Vital Signs: Vital Signs Temp Pulse Resp BP 97.2 F L 90 18 112/66 03/16/24 10:34 03/16/24 10:34 03/16/24 10:34 03/16/24 10:34 Physical Exam Const alert, oriented x3 and no apparent distress General Appearance: cooperative HEENT normocephalic Eyes General Eye: normal appearance of both eyes Neck General: normal visual inspection Lymph Lymphatic: no lymphadenopathy noted and no lymphedema noted Resp normal respiratory effort Cardio regular rate and regular rhythm Extremity normal capillary refill, no calf tenderness and no pedal edema Extremity Narrative: Right lower extremity: Vascular: DP and PT pulses palpable with adequate capillary fill time to the digits. Normal temperature gradient. Hair growth is absent to the digits. Neurologic: Gross sensation intact. Absent protective sensation consistent with diabetic peripheral polyneuropathy Musculoskeletal: No pain to palpation about the ulcerative site secondary to diabetic peripheral polyneuropathy. There is a Charcot foot deformity noted of the right foot. Dermatologic: Incision site medial foot healed with cicatrix. No signs of infection. Incision site anterior leg with cicatrix proximally and distally. No signs of infection. There is an ulceration dorsally along the midfoot medial to the incision site with healthy granular tissue. This has granulated in well with the addition of a wound VAC from previously seen in the hospital prior to discharge. Ulceration site demonstrates no signs of infection. Skin skin turgor normal and no jaundice Neuro moves all extremities Debridement Note Debridement Note Wound debrided: Right foot Laterality: Right Wound Grade/Stage: Gonzalez stage III Type of Debridement: Excisional debridement Anesthesia Used: 5% Lidocaine Gel Depth: Down to and including healthy tissue and in the subcutaneous layer Percentage of wound debrided: 100 Instrument Used: 5mm curette Tissue Removed: Fibrous, devitalized subcutaneous, biofilm, slough Severity: Fat Layer Exposed Amount of bleeding with debridement: Mild Bleeding Controlled with: Compression and gauze Patient tolerated procedure: Patient tolerated procedure well Post-Debridement Measurements and Additional Note: Post-Debridement Measurements/Treatment - Nurse 1 - General Ulcer Assessment Start: 03/09/24 10:14 Freq: Status: Active Protocol: RUKHSANA Activity Type Activity Date Activity User E-sign Co-sign Detail Recorded Client Recorded Date Recorded By Document 03/09/24 10:15 DL [id number] 03/09/24 10:38 DL Document 03/16/24 10:34 RB [id number] 03/16/24 10:44 RB 03/09/24 03/16/24 10:15 10:34 - Today's Visit Information Type of service Initial Visit Follow-up Visit (Physician/PR[employer]ER ) Arrival Mode Wheelchair Wheelchair Transfer Assistance None Manual Patient Identification Verified (Name & Yes Yes ) Patient Requires Transmission-Based No No Precautions Finger Stick Blood Sugar(mg/dl) (if 130 indicated): Blood Sugar Stated by Patient Vital Signs Temperature (97.8 F-99.1 F) 97.5 F L 97.2 F L Temperature Source Oral Temporal Pulse Rate (60-100) 118 H 90 Pulse Location Monitor Monitor Respiratory Rate (12-18) 20 H 18 Respiratory rate source Observation Observation Blood Pressure (90/60-120/80) 115/75 112/66 Blood Pressure Mean (mm Hg) 88 81 Source Monitor Monitor Position Semi-Fowlers Blood Pressure Location Left Arm History Since Last Visit- (Skip if this is Patient's initial visit) Have you changed medications since your No last visit? Any new allergies or adverse reactions No Had a fall/change in ADL's that may No increase risk of falls Signs or symptoms of abuse and/or No neglect since last visit Have you been in the hospital since your No last visit? Has dressing in place as prescribed Yes Has compression in place as prescribed Yes Has offloadiing in place as prescribed No Experienced any changes in pain level or No management Pain Scale: 0-10 Numeric Is Patient Pain Free? Yes No RLE -Description Aching -Intensity 2 -Duration (hours) Acute -Pain Behavior Withdrawal from Touch -Pain Aggravating Factors Exercise/ Activity -Alleviating Factors/Interventions Medication -Effectiveness of Alleviating Factor/ Moderately Intervention effective Communication Assessment Preferred language Cymraes Resident Care Supervisor Required No Able to Read Yes Able to Write Yes Communication Tools None Right Hearing Abillity Normal Left Hearing Abillity Normal Visual Assistive Devices Glasses Teaching Assessment Preferences Verbal,Written Barriers to Learning None Readiness To Learn Good Willingness to Engage in Self Management Med Activies Readiness to Engage in Self Management Med Activities Anxiety Level Calm Cooperation Cooperative Perception Coherent Interest in Health Problem Asks Questions Education Importance Acknowledges Need Smoking Status Former smoker Is Patient Diabetic Yes Functional Assessment Recent Decline in Ability to Perform Denies Any Declines Culture/Jew/Communications Superintendent Cultural/Jew Needs that may affect No Treatment Plan Would you allow our hospital gas fitter apprentice to No meet you for the purpose of spiritual/ emotional support? Communications Superintendent to contact place of islam No Teaching: Wound Center *Hyperbaric Medicine (HBO) -Person Taught Patient Dressing Your Wound -Person Taught Patient Discharge Instructions -Person Taught Patient WC - Nurse 1 - General Ulcer Measurement Start: 03/09/24 10:14 Freq: Status: Active Protocol: Activity Type Activity Date Activity User E-sign Co-sign Detail Recorded Client Recorded Date Recorded By Document 03/09/24 10:15 DL [id number] 03/09/24 10:38 DL Document 03/16/24 10:34 RB [id number] 03/16/24 10:44 RB 03/09/24 03/16/24 10:15 10:34 Wound Center Nurse 1 #6 R Med Foot -Current Size (cm) - Length 0.5 -Current Size (cm) - Width 0.5 -Current Size (cm) - Depth 0.1 -Total Square Cm 0.25 -Photo Taken Yes -Exudate Amt None Present -Wound Margin Distinct, Outline Attached -Granulation Amt Small (1-33%) -Granulation Quality [place] -Necrosis Amt Small (1-33%) -Necrotic Tissue Type Adherent Slough -Structure Exposed N/A -Texture (Marie-wound Skin Appearance) Localized Edema ,Scarring -Moisture (Marie-wound Skin Appearance) No Abnormality -Color (Marie-wound Skin Appearance) No Abnormality -Temperature (Marie-wound Skin No Abnormality Appearance) (Pt Warm) -Tenderness on Palpation (Marie-wound No Skin Appearance) -Ulcer Cleansing Soap and Water -Foul Odor after Cleansing No -Anesthetic Used 5% Lidocaine Gel #5 RDorsal/Anterior Ankle -Combined with other wound No -Current Size (cm) - Length 12 9.5 -Current Size (cm) - Width 2.1 2.2 -Current Size (cm) - Depth 0.1 0.1 -Total Square Cm 25.2 20.90 -Photo Taken Yes -Tunneling No -Undermining/Tunneling No -Circular Undermining No -Exudate Amt Medium Large -Exudate Type Serosanguineous Serosanguineous -Wound Margin Distinct, Distinct, Outline Outline Attached Attached -Granulation Amt Large (67-100%) Large (67-100%) -Granulation Quality Red [place] -Slough/Fibrin Yes -Necrosis Amt Small (1-33%) Medium (34-66%) -Necrotic Tissue Type Adherent Slough Adherent Slough -Structure Exposed N/A N/A -Texture (Marie-wound Skin Appearance) Localized Edema Scarring ,Scarring -Moisture (Marie-wound Skin Appearance) No Abnormality Assessed -Color (Marie-wound Skin Appearance) No Abnormality Assessed -Temperature (Marie-wound Skin No Abnormality No Abnormality Appearance) (Pt Warm) (Pt Warm) -Tenderness on Palpation (Marie-wound No No Skin Appearance) -Ulcer Cleansing Soap and Water Wound Cleanser -Foul Odor after Cleansing No No -Anesthetic Used 4% Lidocaine 4% Lidocaine Solution Solution Right Calf (cm) 32 Right Ankle (cm) 19.5 WC - Nurse 2 - General Ulcer CM Notes Start: 03/09/24 10:14 Freq: Status: Active Protocol: Activity Type Activity Date Activity User E-sign Co-sign Detail Recorded Client Recorded Date Recorded By Document 03/09/24 10:59 [facility] [id number] 03/09/24 11:16 BM Document 03/16/24 10:58 [facility] [id number] 03/16/24 11:16 [facility] 03/09/24 03/16/24 10:59 10:58 Wound Center Nurse 2 #6 R Med Foot -Post Debridement (cm) - Length 0 -Post Debridement (cm) - Width 0 -Post Debridement (cm) - Depth 0 -Total Square (Post) (cm) 0 -Area of Debridement (cm) - Length 0 -Area of Debridement (cm) - Width 0 -Total Square (Area) (cm) 0 -Wound/Ulcer Outcome Healed- Epithelialized -Wound Comment(s) sutures removed #5 RDorsal/Anterior Ankle -Time 10:59 10:59 -Correct Patient Yes Yes -Correct Side, Site, Position Yes Yes -Correct Procedure Yes Yes -Procedure Performed Yes Yes -Type of Procedure Debridement Debridement -Clinical Debridement Subcutaneous Subcutaneous -Tissue Removed Subcutaneous Subcutaneous -Post Debridement (cm) - Length 5.5 5.5 -Post Debridement (cm) - Width 2.5 2.5 -Post Debridement (cm) - Depth 0.1 0.1 -Total Square (Post) (cm) 13.75 13.75 -Area of Debridement (cm) - Length 5.5 5.5 -Area of Debridement (cm) - Width 2.5 2.5 -Total Square (Area) (cm) 13.75 13.75 -Tunneling No No -Undermining/Tunneling No No -Circular Undermining No No -Wound/Ulcer Outcome Not Healed Not Healed -Ulcer Cleansing Rinsed/ Rinsed/ Irrigated with Irrigated with Saline Saline -Foul Odor after Cleansing No No -Bioengineered Tissue No No -Type of Bioengineered Tissue Epifix Mesh -Expiration Date 08/22/28 -Product Lot Number [id number] -Percent Used 100 -Lot number of Saline Used [id number] -Bleeding Controlled with Pressure Pressure -Treatment Response Procedure Procedure Tolerated Well Tolerated Well -Debridement - Subq, 1st 20sq cm Yes No -Apply Skin Sub - 1st 25 sq cm - Feet 1 -Epifix Mesh (per sq cm) 11 -Wound Comment(s) sutures removed Pain Scale: 0-10 Numeric Is Patient Pain Free? Yes Yes WC - Nurse 3 - General Ulcer D/C NN Start: 03/09/24 10:14 Freq: Status: Active Protocol: Activity Type Activity Date Activity User E-sign Co-sign Detail Recorded Client Recorded Date Recorded By Document 03/09/24 11:38 RB [id number] 03/09/24 11:39 RB Document 03/16/24 11:27 [facility] [id number] 03/16/24 11:28 [facility] 03/09/24 03/16/24 11:38 11:27 Wound Care Center Nurse 3 #5 RDorsal/Anterior Ankle -Ulcer Cleansing Rinsed/ Irrigated with Saline -Primary Dressing Applied Promogran Aquacel Extra Cherelle Matter -Other Dressing abd epimesh -Primary Dressing Covered/Secured with Dry Gauze & Dry Gauze & Roll Gauze, Roll Gauze, Secured with Secured with Tape Tape -Other Covering abd -Aquacel Extra 1 -Promogran Cherelle Matter 3 Right -Compression Wrap Sebastian Wrap -Tubular Bandage Single Layer -Size of Tubigrip Used Size D -Size D ($) 1 Treatment Response Procedure Procedure Tolerated Well Tolerated Well Pain Scale: 0-10 Numeric Is Patient Pain Free? Yes Yes WC - Visit Discharge Discharge Condition Stable Stable Ambulatory Status Wheelchair Wheelchair Transportation Private Auto Private Auto Accompanied by daughter Medication Reconcilliation completed & No provided to patient/care provider Clinical Summary of Care Provided Yes Assessment/Plan Assessment/Plan (1) 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: CODE(S): L97.512 - 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 (2) Type 2 diabetes mellitus with foot ulcer: CODE(S): E11.621 - Type 2 diabetes mellitus with foot ulcer; L97.509 - Non-pressure chronic ulcer of other part of unspecified foot with unspecified severity (3) Charcot's joint of right foot: CODE(S): M14.671 - Charcot's joint, right ankle and foot (4) Type 2 diabetes mellitus with diabetic polyneuropathy: CODE(S): E11.42 - Type 2 diabetes mellitus with diabetic polyneuropathy QUALIFIERS: Diabetes mellitus senior living insulin use: with bed bug exterminator use Qualified Code(s): E11.42 - Type 2 diabetes mellitus with diabetic polyneuropathy; Z79.4 - shelter (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 DOS 02/10/2024, POD #35 Cicatrix at incision sites medial foot and anterior leg with no signs of infection. Ulceration dorsal foot has granulated in well versus her previous visit in the hospital with the application of wound VAC. Wound VAC has since been discontinued when she did leave the facility earlier this week. Ulceration predebridement measures 5.4 cm x 2.4 cm x 0.2 cm Ulceration did undergo debridement as noted on clinical panel above. Postdebridement measurements 5.5 cm x 2.5 cm x 0.2 cm. EpiFix #1 applied to the ulcerative bed and dressed with Adaptic touch and anchored with Steri-Strips. Dry sterile dressing applied to site with Tubigrip compression. She was instructed to not get the site wet and utilize cast bag when showering. She is understanding of this. She may change outer dressings as needed. She has been approved for EpiFix, will continue application. Will remain nonweightbearing to the right lower extremity with the assistance of walker/knee scooter/wheelchair. Discussed medical clearance for HBO and she will meet with Dr. Howard today. She has had previous lab work drawn while in hospital and is recent as , 03/08/2024 [facility]. Did have recent chest x-ray during her hospital stay in January 2024 along with echocardiogram. Will still order EKG for evaluation prior to dive. HgbA1c during hospital admission was 11.3% on 02/15/2024. PICC line in place, currently on daptomycin and Unasyn per ID with completion in March 2024. The following work up and care recommendations were made: Dressing: EpiFix, Adaptic touch, Steri-Strips, dry sterile dressing right foot Wash: Do not get wet Tissue growth optimization: EpiFix Offload: Nonweightbearing to the right lower extremity Vascular: DP and PT pulses palpable with adequate capillary fill time. Vascular status not impacting healing at this time. Edema: Edema well-controlled. Will continue with Tubigrip stocking application Infection: No signs of infection. Currently on IV antibiotics via PICC line. Will continue daptomycin and Unasyn per ID Pain: No pain to the ulcerative site secondary to diabetic peripheral polyneuropathy Host factors: DM type II with peripheral polyneuropathy, uncontrolled. Charcot foot right foot I answered all the patient's questions. To return to the wound healing center in 1 week or call sooner if the patient has any questions or concerns.
--- NOTE | 2024-03-16 12:09 | EKG12_ITS ---
Test Reason : HBO Blood Pressure : / mmHG Vent. Rate : 067 BPM Atrial Rate : 067 BPM P-R Int : 158 ms QRS Dur : 082 ms QT Int : 396 ms P-R-T Axes : 011 016 036 degrees QTc Int : 418 ms Normal sinus rhythm Normal ECG Confirmed by ANA GUZMAN, RAMSEY ([id number]), newspaper photo editor PARVIN LOWE ([id number]) on 03/17/2024 6:14:00 AM Referred By: Jason Lewis Confirmed By:RAMSEY PEREZ MD
--- NOTE | 2024-03-16 12:52 | HBO.CON.PC_ITS ---
Assessment & Plan Assessment/Plan (1) Type 2 diabetes mellitus with foot ulcer: QUALIFIERS: Diabetes mellitus chcf insulin use: with watermelon inspector use Qualified Code(s): E11.621 - Type 2 diabetes mellitus with foot ulcer; L97.509 - Non-pressure chronic ulcer of other part of unspecified foot with unspecified severity; Z79.4 - moth exterminator (current) use of insulin (2) Type 2 diabetes mellitus with diabetic polyneuropathy: QUALIFIERS: Diabetes mellitus watermelon inspector insulin use: with chcf use Qualified Code(s): E11.42 - Type 2 diabetes mellitus with diabetic polyneuropathy; Z79.4 - residential (current) use of insulin (3) 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: PLAN: Plan Gonzalez stage III. Currently following up here at the wound center for wound care. As above, has had hyperbaric oxygen treatments in the past and tolerated these well. No acute concerns reported at this time. Feels well. No significant medical history changes since her last hyperbaric oxygen session 2 years ago. Plan is to get an EKG later and work up so far with no acute concerns. Due to history of Gonzalez stage III diabetic foot ulcer, nonhealing I believe she benefit from hyperbaric oxygen therapy. She is aware of the commitment having done this in the past and is willing to do this again. Recommending 30-40 sessions of hyperbaric oxygen treatments, 100% oxygen at 2 KELLY for 90 minutes without a break. Blood glucose monitoring pre and post per protocol. Her questions were answered and she was advised to let us know if she has any further questions or concerns, she voiced understanding. This note was generated with [employer] dictation software. It may contain incorrect words, spelling, and punctuation that were not noted in checking the note before signing. History of Present Illness Date of Service: 03/16/24 Chief Complaint: HPI consult for right diabetic foot ulcer History of Wound: Ms. Falk is a 58-year-old currently being seen here at the wound center who was referred for HBO consult. Currently being managed for diabetic foot ulcer, documented as Gonzalez stage III. Has had at least 30 days of conservative wound care. History of insulin-dependent diabetes mellitus. Recent A1c was about 11. She however states that her numbers have been much better lately. No concerns for significant hypoglycemic episodes. Prior session of hyperbaric oxygen therapy about 2 years ago which she tolerated well. Had a bout of vertigo which improved after vestibular sessions by ENT. No tobacco abuse. No history of heart or lung disease. No history of seizure disorder severe claustrophobia. [facility] Medical History (Updated 03/16/24 @ 13:[address] Shila Howard MD) Hypotension Post-menopausal Back pain Injury of head and neck Dietary restriction Diabetes Former smoker Asthma Chronic ulcer of right foot due to diabetes mellitus Non-pressure 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 Infectious tenosynovitis Cellulitis of right lower limb MRSA bacteremia Acute osteomyelitis of left foot Diabetes mellitus with diabetic polyneuropathy Charcot's joint of right foot Narcolepsy Sleep disorder Allergies Hypothyroidism History of MRSA infection Weakness COVID-19 DKA, type 2 Malnutrition 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 Home Medications ?Medication ?Instructions ?Recorded ?Last Taken ?Type armodafinil 150 mg tablet 150 mg PO BID to stay awake 09/25/16 Unknown History montelukast 10 mg tablet 10 mg PO QHS allergy 09/25/16 Unknown History (Singulair) baclofen 10 mg tablet 10 mg PO TID PRN muscle relax 01/01/21 Unknown History ibuprofen 200 mg tablet (Advil) 400 mg PO BID pain 05/21/21 Unknown History levocetirizine 5 mg tablet 1 tab PO DAILY PRN Allergies 11/22/21 Unknown History levothyroxine 112 mcg tablet 112 mcg PO DAILY thyroi 02/09/24 Unknown History daptomycin 500 mg intravenous 750 mg IV DAILY 40 days 02/18/24 Unknown Rx solution acetaminophen 325 mg tablet 650 mg (2 x 325 mg) PO Q6H PRN PRN 02/20/24 Unknown Rx Pain 1-10 Or Fever >100.7 #0 tabs insulin glargine-yfgn 100 unit/mL 28 unit (0.28 mL) subcut BID #0 mL 02/20/24 Unknown Rx (3 mL) subcutaneous pen insulin lispro 100 unit/mL 18 unit (0.18 mL) subcut TIDAC #0 02/20/24 Unknown Rx subcutaneous pen (Humalog KwikPen mL (U-100) Insulin) liothyronine 5 mcg tablet (Cytomel) 12.5 mcg (2.5 x 5 mcg) PO 02/20/24 Unknown Rx DAILY@0600 #0 tabs hydrocodone-acetaminophen 5-325mg 1 tab PO Q6H PRN pain 3 days #12 02/22/24 Unknown Rx 5mg-325mg tabs Allergy/AdvReac Type Severity Reaction Status Date / Time clindamycin Allergy Hives Verified 03/09/24 10:41 pregabalin (From Lyrica) Allergy Swelling Verified 03/09/24 10:41 bee venom protein (honey bee) AdvReac Anaphylaxis Verified 03/09/24 10:41 vancomycin AdvReac Other Verified 03/09/24 10:41 Family History Father CVA (cerebral vascular accident) Clotting disorder Seizures Mother Osteoarthritis Other Charcot's joint of right foot Diabetes Heart disease Hypertension 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 alcohol intake: current alcohol intake frequency: holidays/special occasions only substance use type: does not use ROS Constitutional Constitutional: Denies change in weight, chills, daytime sleepiness, fatigue, fr equent falls, headache(s) or increased appetite Eyes Eyes: Denies acute decrease in peripheral vision, blind spots, change in eye color, change in vision, discongugate gaze or double vision ENT HEENT: Denies ear pain, epistaxis, facial pain, foreign body in nose, halitosis, headache(s) or mouth pain Cardiovascular Cardiovascular: Denies abdominal pain, bluish discoloration of hand/feet, chest pain, claudication, clubbing or cold extremities Respiratory/Chest Respiratory/Chest: Denies chest congestion, difficulty clearing secretions, dyspnea on exertion, excessive phlegm production, hemoptysis or inability to speak Gastrointestinal Gastrointestinal: Denies abdominal pain, change in bowel habits, change in stool character, chewing difficulty, dry heaves, dysphagia or excessive flatus Genitourinary Genitourinary: Denies abdominal discomfort, burning urination, difficulty urinating or flank pain Musculoskeletal Musculoskeletal: Reports extremity pain; Denies muscle spasms, muscle weakness, numbness, tingling or tremors Integumentary Integumentary: Denies change in pigmentation, changing lesions, furuncle, hirsutism, jaundice or pruritus Neurologic Neurologic: Denies abnormal speech, behavior changes, focal weakness, frequent falls, loss of vision or memory loss Psychiatric Psychiatric: Denies auditory hallucinations, behavioral changes, hallucinations, irritability, memory loss, tactile hallucinations or visual hallucinations Endocrine Endocrinology: Denies cold intolerance, deepening of the voice, excessive sweating, flushing, heat intolerance or palpitations Hematologic/Lymphatic Hematologic/Lymphatic: Denies easy bleeding Allergic/Immunologic Allergic/Immunologic: Denies itchy eyes, lip swelling, throat swelling, tongue swelling, eczemia or wheezing Physical Exam Physical Exam Const alert, oriented x3 and no apparent distress General Appearance: cooperative, comfortable and well kempt HEENT normocephalic, head/scalp atraumatic and hearing grossly normal bilaterally Tympanic Membrane: TM's normal bilaterally Eyes EOMs intact bilaterally Neck full ROM and no lymphadenopathy General: normal visual inspection Resp normal respiratory effort and normal air movement Effort and Inspection: able to speak in complete sentences Cardio regular rate, regular rhythm, S1 normal heart sound and S2 normal heart sound GI soft to palpation and non-tender Extremity General Extremity: edema Neuro oriented x3, CN's II-XII intact bilaterally, moves all extremities and no focal motor deficits Psych mental status grossly normal, thought process normal, cooperative and affect normal Nursing Assessment and Debridement Post-Debridement Measurements and Additional Note: Post-Debridement Measurements/Treatment - Nurse 1 - General Ulcer Assessment Start: 03/09/24 10:14 Freq: Status: Active Protocol: RUKHSANA Activity Type Activity Date Activity User E-sign Co-sign Detail Recorded Client Recorded Date Recorded By Document 03/16/24 10:34 DALIA [id number] 03/16/24 10:44 RB 03/16/24 10:34 - Today's Visit Information Type of service Follow-up Visit (Physician/BACK WEDGER ) Arrival Mode Wheelchair Transfer Assistance Manual Patient Identification Verified (Name & Yes ) Patient Requires Transmission-Based No Precautions Vital Signs Temperature (97.8 F-99.1 F) 97.2 F L Temperature Source Temporal Pulse Rate (60-100 beats/min) 90 Pulse Location Monitor Respiratory Rate (12-18 breaths/min) 18 Respiratory rate source Observation Blood Pressure (90/60-120/80 mm Hg) 112/66 Blood Pressure Mean (mm Hg) 81 Source Monitor Position Semi-Fowlers Blood Pressure Location Left Arm History Since Last Visit- (Skip if this is Patient's initial visit) Have you changed medications since your No last visit? Any new allergies or adverse reactions No Had a fall/change in ADL's that may No increase risk of falls Signs or symptoms of abuse and/or No neglect since last visit Have you been in the hospital since your No last visit? Has dressing in place as prescribed Yes Has compression in place as prescribed Yes Has offloadiing in place as prescribed No Experienced any changes in pain level or No management Pain Scale: 0-10 Numeric Is Patient Pain Free? No RLE -Description Aching -Intensity 2 -Duration (hours) Acute -Pain Behavior Withdrawal from Touch -Pain Aggravating Factors Exercise/ Activity -Alleviating Factors/Interventions Medication -Effectiveness of Alleviating Factor/ Moderately Intervention effective WC - Nurse 1 - General Ulcer Measurement Start: 03/09/24 10:14 Freq: Status: Active Protocol: Activity Type Activity Date Activity User E-sign Co-sign Detail Recorded Client Recorded Date Recorded By Document 03/16/24 10:34 RB [id number] 03/16/24 10:44 RB 03/16/24 10:34 Wound Center Nurse 1 #5 RDorsal/Anterior Ankle -Combined with other wound No -Current Size (cm) - Length 9.5 -Current Size (cm) - Width 2.2 -Current Size (cm) - Depth 0.1 -Total Square Cm 20.90 -Tunneling No -Undermining/Tunneling No -Circular Undermining No -Exudate Amt Large -Exudate Type Serosanguineous -Wound Margin Distinct, Outline Attached -Granulation Amt Large (67-100%) -Granulation Quality [place] -Slough/Fibrin Yes -Necrosis Amt Medium (34-66%) -Necrotic Tissue Type Adherent Slough -Structure Exposed N/A -Texture (Marie-wound Skin Appearance) Scarring -Moisture (Marie-wound Skin Appearance) Assessed -Color (Marie-wound Skin Appearance) Assessed -Temperature (Marie-wound Skin No Abnormality Appearance) (Pt Warm) -Tenderness on Palpation (Marie-wound No Skin Appearance) -Ulcer Cleansing Wound Cleanser -Foul Odor after Cleansing No -Anesthetic Used 4% Lidocaine Solution WC - Nurse 2 - General Ulcer CM Notes Start: 03/09/24 10:14 Freq: Status: Active Protocol: Activity Type Activity Date Activity User E-sign Co-sign Detail Recorded Client Recorded Date Recorded By Document 03/16/24 10:58 [facility] [id number] 03/16/24 11:16 [facility] 03/16/24 10:58 Wound Center Nurse 2 -Time 10:59 -Correct Patient Yes -Correct Side, Site, Position Yes -Correct Procedure Yes -Procedure Performed Yes -Type of Procedure Debridement -Clinical Debridement Subcutaneous -Tissue Removed Subcutaneous -Post Debridement (cm) - Length 5.5 -Post Debridement (cm) - Width 2.5 -Post Debridement (cm) - Depth 0.1 -Total Square (Post) (cm) 13.75 -Area of Debridement (cm) - Length 5.5 -Area of Debridement (cm) - Width 2.5 -Total Square (Area) (cm) 13.75 -Tunneling No -Undermining/Tunneling No -Circular Undermining No -Wound/Ulcer Outcome Not Healed -Ulcer Cleansing Rinsed/ Irrigated with Saline -Foul Odor after Cleansing No -Bioengineered Tissue No -Type of Bioengineered Tissue Epifix Mesh -Expiration Date 08/22/28 -Product Lot Number [id number] -Percent Used 100 -Lot number of Saline Used [id number] -Bleeding Controlled with Pressure -Treatment Response Procedure Tolerated Well -Debridement - Subq, 1st 20sq cm No -Apply Skin Sub - 1st 25 sq cm - Feet 1 -Epifix Mesh (per sq cm) 11 Pain Scale: 0-10 Numeric Is Patient Pain Free? Yes WC - Nurse 3 - General Ulcer D/C NN Start: 03/09/24 10:14 Freq: Status: Active Protocol: Activity Type Activity Date Activity User E-sign Co-sign Detail Recorded Client Recorded Date Recorded By Document 03/16/24 11:27 [facility] [id number] 03/16/24 11:28 [facility] 03/16/24 11:27 Wound Care Center Nurse 3 #5 RDorsal/Anterior Ankle -Primary Dressing Applied Aquacel Extra -Other Dressing epimesh -Primary Dressing Covered/Secured with Dry Gauze & Roll Gauze, Secured with Tape -Other Covering abd -Aquacel Extra 1 Right -Compression Wrap Sebastian Wrap Treatment Response Procedure Tolerated Well Pain Scale: 0-10 Numeric Is Patient Pain Free? Yes WC - Visit Discharge Discharge Condition Stable Ambulatory Status Wheelchair Transportation Private Auto Accompanied by daughter Charges/Coding Visit Charges Office Visits / Consults: 24940 OV L3 Est 20min
[2024-03-18 10:09] LABS: Prealbumin 21 mg/dL (10-36)
[2024-03-23 09:29] VITALS: BP 128/77; PULSE 87; RESP 18; TEMP 36.3
--- NOTE | 2024-03-23 09:48 | PCM.WC.PN ---
History of Present Illness Date of Service: 03/23/24 Chief Complaint: HPI consult for right diabetic foot ulcer History of Wound: Ms. Falk is a 58-year-old currently being seen here at the wound center who was referred for HBO consult. Currently being managed for diabetic foot ulcer, documented as Gonzalez stage III. Has had at least 30 days of conservative wound care. History of insulin-dependent diabetes mellitus. Recent A1c was about 11. She however states that her numbers have been much better lately. No concerns for significant hypoglycemic episodes. Prior session of hyperbaric oxygen therapy about 2 years ago which she tolerated well. Had a bout of vertigo which improved after vestibular sessions by ENT. No tobacco abuse. No history of heart or lung disease. No history of seizure disorder severe claustrophobia. Subjective Subjective This is a 58-year-old female who continues to follow with the wound care center for right dorsal foot ulceration. She had previously undergone I&D on 02/10/2024 of the right foot. Continues to heal well and is changing outer dressing as needed. Has left graft in place to Right foot. She reports meeting with Dr. Howard last week for HBO clearance, and has been cleared. She states ulcer site is looking better. Denies constitutional symptoms. Denies further complaints. Objective Data Objective Data Vital Signs: Vital Signs Temp Pulse Resp BP 97.4 F L 87 18 128/77 H 03/23/24 09:29 03/23/24 09:29 03/23/24 09:29 03/23/24 09:29 Physical Exam Const alert, oriented x3 and no apparent distress General Appearance: cooperative HEENT normocephalic Eyes General Eye: normal appearance of both eyes Neck General: normal visual inspection Lymph Lymphatic: no lymphadenopathy noted and no lymphedema noted Resp normal respiratory effort Cardio regular rate and regular rhythm Extremity normal capillary refill, no calf tenderness and no pedal edema Extremity Narrative: Right lower extremity: Vascular: DP and PT pulses palpable with adequate capillary fill time to the digits. Normal temperature gradient. Hair growth is absent to the digits. Neurologic: Gross sensation intact. Absent protective sensation consistent with diabetic peripheral polyneuropathy Musculoskeletal: No pain to palpation about the ulcerative site secondary to diabetic peripheral polyneuropathy. There is a Charcot foot deformity noted of the right foot. Dermatologic: Incision site medial foot healed with cicatrix. No signs of infection. Incision site anterior leg with cicatrix proximally and distally. No signs of infection. There is an ulceration dorsally along the midfoot medial to the incision site with healthy granular tissue. Ulceration site demonstrates no signs of infection. Skin skin turgor normal and no jaundice Neuro moves all extremities Debridement Note Debridement Note Wound debrided: Right foot Laterality: Right Wound Grade/Stage: Gonzalez stage III Type of Debridement: Excisional debridement Anesthesia Used: 5% Lidocaine Gel Depth: Down to and including healthy tissue and in the subcutaneous layer Percentage of wound debrided: 100 Instrument Used: 5mm curette Tissue Removed: Fibrous, devitalized subcutaneous, biofilm, slough Severity: Fat Layer Exposed Amount of bleeding with debridement: Mild Bleeding Controlled with: Compression and gauze Patient tolerated procedure: Patient tolerated procedure well Post-Debridement Measurements and Additional Note: Post-Debridement Measurements/Treatment - Nurse 1 - General Ulcer Assessment Start: 03/09/24 10:14 Freq: Status: Active Protocol: RUKHSANA Activity Type Activity Date Activity User E-sign Co-sign Detail Recorded Client Recorded Date Recorded By Document 03/09/24 10:15 DL [id number] 03/09/24 10:38 DL Document 03/16/24 10:34 RB [id number] 03/16/24 10:44 RB Document 03/23/24 09:29 DL [id number] 03/23/24 09:36 DL 03/09/24 03/16/24 03/23/24 10:15 10:34 09:29 - Today's Visit Information Type of service Initial Visit Follow-up Visit Follow-up Visit (Physician/SATURATOR (Physician/SATURATOR ) ) Arrival Mode Wheelchair Wheelchair Ambulatory, Wheelchair Transfer Assistance None Manual None Patient Identification Verified (Name & Yes Yes Yes ) Patient Requires Transmission-Based No No No Precautions Finger Stick Blood Sugar(mg/dl) (if 130 indicated): Blood Sugar Stated by Patient Vital Signs Temperature (97.8 F-99.1 F) 97.5 F L 97.2 F L 97.4 F L Temperature Source Oral Temporal Temporal Pulse Rate (60-100) 118 H 90 87 Pulse Location Monitor Monitor Monitor Respiratory Rate (12-18) 20 H 18 18 Respiratory rate source Observation Observation Blood Pressure (90/60-120/80) 115/75 112/66 128/77 H Blood Pressure Mean (mm Hg) 88 81 94 Source Monitor Monitor Monitor Position Semi-Fowlers Blood Pressure Location Left Arm History Since Last Visit- (Skip if this is Patient's initial visit) Have you changed medications since your No No last visit? Any new allergies or adverse reactions No No Had a fall/change in ADL's that may No No increase risk of falls Signs or symptoms of abuse and/or No No neglect since last visit Have you been in the hospital since your No No last visit? Has dressing in place as prescribed Yes Yes Has compression in place as prescribed Yes No Has offloadiing in place as prescribed No Yes Experienced any changes in pain level or No management Pain Scale: 0-10 Numeric Is Patient Pain Free? Yes No Yes RLE -Description Aching -Intensity 2 -Duration (hours) Acute -Pain Behavior Withdrawal from Touch -Pain Aggravating Factors Exercise/ Activity -Alleviating Factors/Interventions Medication -Effectiveness of Alleviating Factor/ Moderately Intervention effective Communication Assessment Preferred language Chinese Milk Pasteurizer Required No Able to Read Yes Able to Write Yes Communication Tools None Right Hearing Abillity Normal Left Hearing Abillity Normal Visual Assistive Devices Glasses Teaching Assessment Preferences Verbal,Written Barriers to Learning None Readiness To Learn Good Willingness to Engage in Self Management Med Activies Readiness to Engage in Self Management Med Activities Anxiety Level Calm Cooperation Cooperative Perception Coherent Interest in Health Problem Asks Questions Education Importance Acknowledges Need Smoking Status Former smoker Is Patient Diabetic Yes Functional Assessment Recent Decline in Ability to Perform Denies Any Declines Culture/Protestant/School Business Manager Cultural/Protestant Needs that may affect No Treatment Plan Would you allow our hospital pay agent to No meet you for the purpose of spiritual/ emotional support? School Business Manager to contact place of [facility] No Teaching: Wound Center *Hyperbaric Medicine (HBO) -Person Taught Patient Dressing Your Wound -Person Taught Patient Discharge Instructions -Person Taught Patient WC - Nurse 1 - General Ulcer Measurement Start: 03/09/24 10:14 Freq: Status: Active Protocol: Activity Type Activity Date Activity User E-sign Co-sign Detail Recorded Client Recorded Date Recorded By Document 03/09/24 10:15 DL [id number] 03/09/24 10:38 DL Document 03/16/24 10:34 RB [id number] 03/16/24 10:44 RB Document 03/23/24 09:29 DL [id number] 03/23/24 09:36 DL 03/09/24 03/16/24 03/23/24 10:15 10:34 09:29 Wound Center Nurse 1 #6 R Med Foot -Current Size (cm) - Length 0.5 -Current Size (cm) - Width 0.5 -Current Size (cm) - Depth 0.1 -Total Square Cm 0.25 -Photo Taken Yes -Exudate Amt None Present -Wound Margin Distinct, Outline Attached -Granulation Amt Small (1-33%) -Granulation Quality [place] -Necrosis Amt Small (1-33%) -Necrotic Tissue Type Adherent Slough -Structure Exposed N/A -Texture (Marie-wound Skin Appearance) Localized Edema ,Scarring -Moisture (Marie-wound Skin Appearance) No Abnormality -Color (Marie-wound Skin Appearance) No Abnormality -Temperature (Marie-wound Skin No Abnormality Appearance) (Pt Warm) -Tenderness on Palpation (Marie-wound No Skin Appearance) -Ulcer Cleansing Soap and Water -Foul Odor after Cleansing No -Anesthetic Used 5% Lidocaine Gel #5 RDorsal/Anterior Ankle -Combined with other wound No -Current Size (cm) - Length 12 9.5 7.5 -Current Size (cm) - Width 2.1 2.2 2.4 -Current Size (cm) - Depth 0.1 0.1 0.1 -Total Square Cm 25.2 20.90 18.00 -Photo Taken Yes -Tunneling No -Undermining/Tunneling No -Circular Undermining No -Exudate Amt Medium Large Medium -Exudate Type Serosanguineous Serosanguineous Serosanguineous -Wound Margin Distinct, Distinct, Outline Outline Attached Attached -Granulation Amt Large (67-100%) Large (67-100%) Small (1-33%) -Granulation Quality [place] -Slough/Fibrin Yes -Necrosis Amt Small (1-33%) Medium (34-66%) Large (67-100%) -Necrotic Tissue Type Adherent Slough Adherent Slough Adherent Slough -Structure Exposed N/A N/A N/A -Texture (Marie-wound Skin Appearance) Localized Edema Scarring Scarring ,Scarring -Moisture (Marie-wound Skin Appearance) No Abnormality Assessed Dry/Scaly -Color (Marie-wound Skin Appearance) No Abnormality Assessed Hemosiderin Staining -Temperature (Marie-wound Skin No Abnormality No Abnormality No Abnormality Appearance) (Pt Warm) (Pt Warm) (Pt Warm) -Tenderness on Palpation (Marie-wound No No No Skin Appearance) -Ulcer Cleansing Soap and Water Wound Cleanser Soap and Water -Foul Odor after Cleansing No No No -Anesthetic Used 4% Lidocaine 4% Lidocaine 4% Lidocaine Solution Solution Solution Right Calf (cm) 32 33.5 Right Ankle (cm) 19.5 20 WC - Nurse 2 - General Ulcer CM Notes Start: 03/09/24 10:14 Freq: Status: Active Protocol: Activity Type Activity Date Activity User E-sign Co-sign Detail Recorded Client Recorded Date Recorded By Document 03/09/24 10:59 [facility] [id number] 03/09/24 11:16 BM Document 03/16/24 10:58 [place] [id number] 03/16/24 11:16 BMF 03/09/24 03/16/24 10:59 10:58 Wound Center Nurse 2 #6 R Med Foot -Post Debridement (cm) - Length 0 -Post Debridement (cm) - Width 0 -Post Debridement (cm) - Depth 0 -Total Square (Post) (cm) 0 -Area of Debridement (cm) - Length 0 -Area of Debridement (cm) - Width 0 -Total Square (Area) (cm) 0 -Wound/Ulcer Outcome Healed- Epithelialized -Wound Comment(s) sutures removed #5 RDorsal/Anterior Ankle -Time 10:59 10:59 -Correct Patient Yes Yes -Correct Side, Site, Position Yes Yes -Correct Procedure Yes Yes -Procedure Performed Yes Yes -Type of Procedure Debridement Debridement -Clinical Debridement Subcutaneous Subcutaneous -Tissue Removed Subcutaneous Subcutaneous -Post Debridement (cm) - Length 5.5 5.5 -Post Debridement (cm) - Width 2.5 2.5 -Post Debridement (cm) - Depth 0.1 0.1 -Total Square (Post) (cm) 13.75 13.75 -Area of Debridement (cm) - Length 5.5 5.5 -Area of Debridement (cm) - Width 2.5 2.5 -Total Square (Area) (cm) 13.75 13.75 -Tunneling No No -Undermining/Tunneling No No -Circular Undermining No No -Wound/Ulcer Outcome Not Healed Not Healed -Ulcer Cleansing Rinsed/ Rinsed/ Irrigated with Irrigated with Saline Saline -Foul Odor after Cleansing No No -Bioengineered Tissue No No -Type of Bioengineered Tissue Epifix Mesh -Expiration Date 08/22/28 -Product Lot Number [id number] -Percent Used 100 -Lot number of Saline Used [id number] -Bleeding Controlled with Pressure Pressure -Treatment Response Procedure Procedure Tolerated Well Tolerated Well -Debridement - Subq, 1st 20sq cm Yes No -Apply Skin Sub - 1st 25 sq cm - Feet 1 -Epifix Mesh (per sq cm) 11 -Wound Comment(s) sutures removed Pain Scale: 0-10 Numeric Is Patient Pain Free? Yes Yes - Nurse 3 - General Ulcer D/C NN Start: 03/09/24 10:14 Freq: Status: Active Protocol: Activity Type Activity Date Activity User E-sign Co-sign Detail Recorded Client Recorded Date Recorded By Document 03/09/24 11:38 [id number] 03/09/24 11:39 RB Document 03/16/24 11:27 [facility] [id number] 03/16/24 11:28 [facility] 03/09/24 03/16/24 11:38 11:27 Wound Care Center Nurse 3 #5 RDorsal/Anterior Ankle -Ulcer Cleansing Rinsed/ Irrigated with Saline -Primary Dressing Applied Promogran Aquacel Extra Cherelle Matter -Other Dressing abd epimesh -Primary Dressing Covered/Secured with Dry Gauze & Dry Gauze & Roll Gauze, Roll Gauze, Secured with Secured with Tape Tape -Other Covering abd -Aquacel Extra 1 -Promogran Cherelle Matter 3 Right -Compression Wrap Sebastian Wrap -Tubular Bandage Single Layer -Size of Tubigrip Used Size D -Size D ($) 1 Treatment Response Procedure Procedure Tolerated Well Tolerated Well Pain Scale: 0-10 Numeric Is Patient Pain Free? Yes Yes - Visit Discharge Discharge Condition Stable Stable Ambulatory Status Wheelchair Wheelchair Transportation Private Auto Private Auto Accompanied by daughter Medication Reconcilliation completed & No provided to patient/care provider Clinical Summary of Care Provided Yes Assessment/Plan Assessment/Plan (1) 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: CODE(S): L97.512 - 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 (2) Type 2 diabetes mellitus with foot ulcer: CODE(S): E11.621 - Type 2 diabetes mellitus with foot ulcer; L97.509 - Non-pressure chronic ulcer of other part of unspecified foot with unspecified severity QUALIFIERS: Diabetes mellitus termite control service representative insulin use: with termite control service representative use Qualified Code(s): E11.621 - Type 2 diabetes mellitus with foot ulcer; L97.509 - Non-pressure chronic ulcer of other part of unspecified foot with unspecified severity; Z79.4 - halfway (current) use of insulin (3) Charcot's joint of right foot: CODE(S): M14.671 - Charcot's joint, right ankle and foot (4) Type 2 diabetes mellitus with diabetic polyneuropathy: CODE(S): E11.42 - Type 2 diabetes mellitus with diabetic polyneuropathy QUALIFIERS: Diabetes mellitus termite control service representative insulin use: with termite control service representative use Qualified Code(s): E11.42 - Type 2 diabetes mellitus with diabetic polyneuropathy; Z79.4 - halfway (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 DOS 02/10/2024, POD #42 Cicatrix at incision sites medial foot and anterior leg with no signs of infection. Ulceration dorsal foot has granulated in well versus her previous visit. She is healing well. Ulceration predebridement measures 7.9 cm x 2.3 cm x 0.2 cm Ulceration did undergo debridement as noted on clinical panel above. Postdebridement measurements 8.0 cm x 2.4 cm x 0.2 cm. EpiFix #2 applied to the ulcerative bed and dressed with Adaptic touch and anchored with Steri-Strips. Dry sterile dressing applied to site with Tubigrip compression. She was instructed to not get the site wet and utilize cast bag when showering. She is understanding of this. She may change outer dressings as needed. She has been approved for EpiFix, will continue application. Will remain nonweightbearing to the right lower extremity with the assistance of walker/knee scooter/wheelchair. Discussed medical clearance for HBO and she has been cleared by Dr. Howard. She will start HBO dives today. She has had previous lab work drawn while in hospital and is recent as yesterday, 03/08/2024 [facility]. Did have recent chest x-ray during her hospital stay in January 2024 along with echocardiogram. Did undergol EKG for evaluation prior to dive. HgbA1c during hospital admission was 11.3% on 02/15/2024. PICC line in place, currently on daptomycin and Unasyn per ID with completion in March 2024. The following work up and care recommendations were made: Dressing: EpiFix, Adaptic touch, Steri-Strips, dry sterile dressing right foot Wash: Do not get wet Tissue growth optimization: EpiFix Offload: Nonweightbearing to the right lower extremity Vascular: DP and PT pulses palpable with adequate capillary fill time. Vascular status not impacting healing at this time. Edema: Edema well-controlled. Will continue with Tubigrip stocking application Infection: No signs of infection. Currently on IV antibiotics via PICC line. Will continue daptomycin and Unasyn per ID Pain: No pain to the ulcerative site secondary to diabetic peripheral polyneuropathy Host factors: DM type II with peripheral polyneuropathy, uncontrolled. Charcot foot right foot I answered all the patient's questions. To return to the wound healing center in 1 week or call sooner if the patient has any questions or concerns.
== END 2024-03-23 23:59 | disposition home or self-care (01) ==
LOC: WC 09:15
PROVIDERS: PCP Family Medicine; Referring Provider Student in an Organized Health Care Education/Training Program; Visit Provider Student in an Organized Health Care Education/Training Program
DX: E11.621 Type 2 diabetes mellitus with foot ulcer (principal); L97.412 Non-pressure chronic ulcer of right heel and midfoot with fat layer exposed; Z79.4 Long term (current) use of insulin; E11.610 Type 2 diabetes mellitus with diabetic neuropathic arthropathy; E11.42 Type 2 diabetes mellitus with diabetic polyneuropathy; G47.419 Narcolepsy without cataplexy; Z79.891 Long term (current) use of opiate analgesic; Z87.891 Personal history of nicotine dependence; Z87.39 Personal history of other diseases of the musculoskeletal system and connective tissue
CPT/HCPCS: 11042; 15275; 36415; 84134; 93005; 99213; 99214; Q4186; G0463

== ENCOUNTER 2024-04-04 10:30 | Outpatient (RCR) | payer MEDICAID, SELFPAY ==
[2024-03-24 10:50] LABS: Bedside Glucose 227 mg/dL (74-106)
[2024-03-24 13:15] VITALS: BP 108/61; BP 127/70; PULSE 71; PULSE 80; RESP 18; TEMP 36.6; TEMP 36.7
[2024-03-24 13:16] LABS: Bedside Glucose 113 mg/dL (74-106)
--- NOTE | 2024-03-24 14:37 | PCM.HBO.PN ---
History of Present Illness Date of Service: 03/24/24 Chief Complaint: HBO for right diabetic foot ulcer History of Wound: Ms. Falk is a 58-year-old currently being seen here at the wound center who was referred for HBO consult. Currently being managed for diabetic foot ulcer, documented as Gonzalez stage III. Has had at least 30 days of conservative wound care. History of insulin-dependent diabetes mellitus. Recent A1c was about 11. She however states that her numbers have been much better lately. No concerns for significant hypoglycemic episodes. Prior session of hyperbaric oxygen therapy about 2 years ago which she tolerated well. Had a bout of vertigo which improved after vestibular sessions by ENT. No tobacco abuse. No history of heart or lung disease. No history of seizure disorder severe claustrophobia. Subjective Subjective Phylicia presents today for hyperbaric oxygen therapy treatment. Today's session represents the 1st treatment of a planned 30 sessions. Hyperbaric oxygen therapy was administered as per the facility's protocol. Hyperbaric oxygen therapy was administered at 2 forrest for 90 minutes with no air breaks. Patient tolerated hyperbaric oxygen therapy well, without complaints or complications. Upon emergence from the hyperbaric chamber, the patient's vital signs remained stable. Blood glucose measurements were obtained both prior to and following hyperbaric oxygen therapy, and are recorded as below. Post-treatment she was doing well and was discharged in good condition. Objective Data Objective Data Vital Signs: Vital Signs Temp Pulse Resp BP 97.9 F 80 18 127/70 H 03/24/24 13:15 03/24/24 13:15 03/24/24 13:15 03/24/24 13:15 Lab / Micro Data Attestation: I reviewed the patient's lab results. Labs: Laboratory Results - last 24 hr 03/24/24 10:32: POC Glucose 227 H 03/24/24 12:54: POC Glucose 113 H Exam Physical Exam Const alert, oriented x3 and no apparent distress General Appearance: cooperative HEENT normocephalic External Auditory Canal: EAC's normal Tympanic Membrane: TM's normal bilaterally Eyes General Eye: normal appearance of both eyes Neck General: normal visual inspection Lymph Lymphatic: no lymphadenopathy noted and no lymphedema noted Resp normal respiratory effort Cardio regular rate and regular rhythm Extremity normal capillary refill, no calf tenderness and no pedal edema Extremity Narrative: Right lower extremity: Vascular: DP and PT pulses palpable with adequate capillary fill time to the digits. Normal temperature gradient. Hair growth is absent to the digits. Neurologic: Gross sensation intact. Absent protective sensation consistent with diabetic peripheral polyneuropathy Musculoskeletal: No pain to palpation about the ulcerative site secondary to diabetic peripheral polyneuropathy. There is a Charcot foot deformity noted of the right foot. Dermatologic: Incision site medial foot healed with cicatrix. No signs of infection. Incision site anterior leg with cicatrix proximally and distally. No signs of infection. There is an ulceration dorsally along the midfoot medial to the incision site with healthy granular tissue. Ulceration site demonstrates no signs of infection. Skin skin turgor normal and no jaundice Neuro moves all extremities Psych mental status grossly normal, thought process normal, cooperative, affect normal and speech normal Assessment/Plan Assessment/Plan (1) Type 2 diabetes mellitus with foot ulcer: CODE(S): E11.621 - Type 2 diabetes mellitus with foot ulcer; L97.509 - Non-pressure chronic ulcer of other part of unspecified foot with unspecified severity QUALIFIERS: Diabetes mellitus retirement insulin use: with supervisor beam department use Qualified Code(s): E11.621 - Type 2 diabetes mellitus with foot ulcer; L97.509 - Non-pressure chronic ulcer of other part of unspecified foot with unspecified severity; Z79.4 - anesthesiology medical doctor (current) use of insulin (2) 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: CODE(S): L97.512 - 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 (3) Type 2 diabetes mellitus with diabetic polyneuropathy: CODE(S): E11.42 - Type 2 diabetes mellitus with diabetic polyneuropathy QUALIFIERS: Diabetes mellitus retirement insulin use: with supervisor beam department use Qualified Code(s): E11.42 - Type 2 diabetes mellitus with diabetic polyneuropathy; Z79.4 - anesthesiology medical doctor (current) use of insulin (4) Charcot's joint of right foot: CODE(S): M14.671 - Charcot's joint, right ankle and foot PLAN: Plan The patient appears to be tolerating hyperbaric oxygen therapy well, which will be continued as per their medical treatment plan.
[2024-03-30 09:27] VITALS: BP 118/65; PULSE 80; RESP 18; TEMP 35.7
--- NOTE | 2024-03-30 12:56 | PCM.WC.PN ---
History of Present Illness Date of Service: 03/30/24 Chief Complaint: HBO for right diabetic foot ulcer History of Wound: Ms. Falk is a 58-year-old currently being seen here at the wound center who was referred for HBO consult. Currently being managed for diabetic foot ulcer, documented as Gonzalez stage III. Has had at least 30 days of conservative wound care. History of insulin-dependent diabetes mellitus. Recent A1c was about 11. She however states that her numbers have been much better lately. No concerns for significant hypoglycemic episodes. Prior session of hyperbaric oxygen therapy about 2 years ago which she tolerated well. Had a bout of vertigo which improved after vestibular sessions by ENT. No tobacco abuse. No history of heart or lung disease. No history of seizure disorder severe claustrophobia. Subjective Subjective This is a 58-year-old female who continues to follow with the wound care center for right dorsal foot ulceration. She had previously undergone I&D on 02/10/2024 of the right foot. Continues to heal well and is changing outer dressing as needed. Has left graft in place to Right foot. Continues HBO dives and states good standing. Ulcer site continues improvement. Denies constitutional symptoms. Denies further complaints. Objective Data Objective Data Vital Signs: Vital Signs Temp Pulse Resp BP 96.3 F L 80 18 118/65 03/30/24 09:27 03/30/24 09:27 03/30/24 09:27 03/30/24 09:27 Physical Exam Const alert, oriented x3 and no apparent distress General Appearance: cooperative HEENT normocephalic Eyes General Eye: normal appearance of both eyes Neck General: normal visual inspection Lymph Lymphatic: no lymphadenopathy noted and no lymphedema noted Resp normal respiratory effort Cardio regular rate and regular rhythm Extremity normal capillary refill, no calf tenderness and no pedal edema Extremity Narrative: Right lower extremity: Vascular: DP and PT pulses palpable with adequate capillary fill time to the digits. Normal temperature gradient. Hair growth is absent to the digits. Neurologic: Gross sensation intact. Absent protective sensation consistent with diabetic peripheral polyneuropathy Musculoskeletal: No pain to palpation about the ulcerative site secondary to diabetic peripheral polyneuropathy. There is a Charcot foot deformity noted of the right foot. Dermatologic: Incision site medial foot healed with cicatrix. No signs of infection. Incision site anterior leg with cicatrix proximally and distally. No signs of infection. There is a full thickness ulceration dorsally along the midfoot medial to the incision site with healthy granular tissue. Ulceration continues improvement with reduction in size. Ulceration site demonstrates no signs of infection. Skin skin turgor normal and no jaundice Neuro moves all extremities Debridement Note Debridement Note Wound debrided: Right foot Laterality: Right Wound Grade/Stage: Gonzalez stage III Type of Debridement: Excisional debridement Anesthesia Used: 5% Lidocaine Gel Depth: Down to and including healthy tissue and in the subcutaneous layer Percentage of wound debrided: 100 Instrument Used: 5mm curette Tissue Removed: Fibrous, devitalized subcutaneous, biofilm, slough Severity: Fat Layer Exposed Amount of bleeding with debridement: Mild Bleeding Controlled with: Compression and gauze Patient tolerated procedure: Patient tolerated procedure well Post-Debridement Measurements and Additional Note: Post-Debridement Measurements/Treatment - Nurse 1 - General Ulcer Assessment Start: 03/24/24 13:15 Freq: Status: Active Protocol: RUKHSANA Activity Type Activity Date Activity User E-sign Co-sign Detail Recorded Client Recorded Date Recorded By Document 03/30/24 09:27 DL [id number] 03/30/24 09:30 DL 03/30/24 09:27 WC - Today's Visit Information Type of service Follow-up Visit (Physician/SHADE BANDER ) Arrival Mode Wheelchair Transfer Assistance None Patient Identification Verified (Name & Yes ) Patient Requires Transmission-Based No Precautions Finger Stick Blood Sugar(mg/dl) (if 103 indicated): Blood Sugar Stated by Patient Vital Signs Temperature (97.8 F-99.1 F) 96.3 F L Temperature Source Temporal Pulse Rate (60-100) 80 Respiratory Rate (12-18) 18 Respiratory rate source Observation Blood Pressure (90/60-120/80) 118/65 Blood Pressure Mean (mm Hg) 82 Source Monitor History Since Last Visit- (Skip if this is Patient's initial visit) Have you changed medications since your No last visit? Any new allergies or adverse reactions No Had a fall/change in ADL's that may No increase risk of falls Signs or symptoms of abuse and/or No neglect since last visit Have you been in the hospital since your No last visit? Has dressing in place as prescribed Yes Has compression in place as prescribed Yes Has offloadiing in place as prescribed Yes Experienced any changes in pain level or No management Pain Scale: 0-10 Numeric Is Patient Pain Free? Yes - Nurse 1 - General Ulcer Measurement Start: 03/24/24 13:15 Freq: Status: Active Protocol: Activity Type Activity Date Activity User E-sign Co-sign Detail Recorded Client Recorded Date Recorded By Document 03/30/24 09:31 JENIFFER [id number] 03/30/24 09:33 DL 03/30/24 09:31 Wound Center Nurse 1 #5 RDorsal/Anterior Ankle -Current Size (cm) - Length 8.5 -Current Size (cm) - Width 1.8 -Current Size (cm) - Depth 0.1 -Total Square Cm 15.30 -Exudate Amt Medium -Granulation Amt Medium (34-66%) -Granulation Quality Pale -Necrosis Amt None Present (0 %) -Necrotic Tissue Type Adherent Slough -Texture (Marie-wound Skin Appearance) Assessed -Moisture (Marie-wound Skin Appearance) Assessed -Color (Marie-wound Skin Appearance) Assessed -Temperature (Marie-wound Skin No Abnormality Appearance) (Pt Warm) -Tenderness on Palpation (Marie-wound No Skin Appearance) -Ulcer Cleansing Soap and Water -Foul Odor after Cleansing No -Anesthetic Used 5% Lidocaine Gel - Nurse 2 - General Ulcer CM Notes Start: 03/24/24 13:15 Freq: Status: Active Protocol: Activity Type Activity Date Activity User E-sign Co-sign Detail Recorded Client Recorded Date Recorded By Document 03/30/24 09:51 [facility] [id number] 03/30/24 10:00 [facility] 03/30/24 09:51 Wound Center Nurse 2 -Time 09:51 -Correct Patient Yes -Correct Side, Site, Position Yes -Correct Procedure Yes -Procedure Performed Yes -Type of Procedure Debridement -Clinical Debridement Subcutaneous -Tissue Removed Subcutaneous -Post Debridement (cm) - Length 7.5 -Post Debridement (cm) - Width 2 -Post Debridement (cm) - Depth 0.1 -Total Square (Post) (cm) 15.0 -Area of Debridement (cm) - Length 7.5 -Area of Debridement (cm) - Width 2 -Total Square (Area) (cm) 15.0 -Tunneling No -Undermining/Tunneling No -Circular Undermining No -Wound/Ulcer Outcome Not Healed -Ulcer Cleansing Rinsed/ Irrigated with Saline -Foul Odor after Cleansing No -Bioengineered Tissue No -Type of Bioengineered Tissue Epifix Mesh -Expiration Date 09/21/28 -Product Lot Number [id number] -Percent Used 100 -Lot number of Saline Used [id number] -Bleeding Controlled with Pressure -Treatment Response Procedure Tolerated Well -Debridement - Subq, 1st 20sq cm No -Apply Skin Sub - 1st 25 sq cm - Feet 1 -Epifix Mesh (per sq cm) 11 Pain Scale: 0-10 Numeric Is Patient Pain Free? Yes - Nurse 3 - General Ulcer D/C NN Start: 03/24/24 13:15 Freq: Status: Active Protocol: Activity Type Activity Date Activity User E-sign Co-sign Detail Recorded Client Recorded Date Recorded By Document 03/30/24 10:13 DL [id number] 03/30/24 10:14 DL 03/30/24 10:13 Wound Care Center Nurse 3 #5 RDorsal/Anterior Ankle -Foul Odor after Cleansing No -Primary Dressing Applied Aquacel Extra -Primary Dressing Covered/Secured with Dry Gauze, Secured with Tape -Other Covering ARMANDO -Aquacel Extra 1 Treatment Response Procedure Tolerated Well Pain Scale: 0-10 Numeric Is Patient Pain Free? Yes WC - Visit Discharge Discharge Condition Stable Ambulatory Status Wheelchair Transportation Private Auto Facility Type Home Health Orders Sent Yes Assessment/Plan Assessment/Plan (1) 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: CODE(S): L97.512 - 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 (2) Charcot's joint of right foot: CODE(S): M14.671 - Charcot's joint, right ankle and foot (3) Type 2 diabetes mellitus with diabetic polyneuropathy: CODE(S): E11.42 - Type 2 diabetes mellitus with diabetic polyneuropathy QUALIFIERS: Diabetes mellitus product safety and standards engineer insulin use: with product safety and standards engineer use Qualified Code(s): E11.42 - Type 2 diabetes mellitus with diabetic polyneuropathy; Z79.4 - hand trucker (current) use of insulin (4) Type 2 diabetes mellitus with foot ulcer: CODE(S): E11.621 - Type 2 diabetes mellitus with foot ulcer; L97.509 - Non-pressure chronic ulcer of other part of unspecified foot with unspecified severity QUALIFIERS: Diabetes mellitus product safety and standards engineer insulin use: with senior care use Qualified Code(s): E11.621 - Type 2 diabetes mellitus with foot ulcer; L97.509 - Non-pressure chronic ulcer of other part of unspecified foot with unspecified severity; Z79.4 - group home (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 DOS 02/10/2024, POD #49 Cicatrix at incision sites medial foot and anterior leg with no signs of infection. Ulceration dorsal foot continues granulating in well versus her previous visit. She is healing well at this time and continues HBO dives. Ulceration predebridement measures 7.4 cm x 1.9 cm x 0.1 cm Ulceration did undergo debridement as noted on clinical panel above. Postdebridement measurements 7.5 cm x 2.0 cm x 0.1 cm. EpiFix #3 applied to the ulcerative bed and dressed with Adaptic touch and anchored with Steri-Strips. Dry sterile dressing applied to site with Tubigrip compression. She was instructed to not get the site wet and utilize cast bag when showering. She is understanding of this. She may change outer dressings as needed. She has been approved for EpiFix, will continue application. Will be permitted at this time for protective weightbearing to the right lower extremity in CAM boot. Discussed medical clearance for HBO and she has been cleared by Dr. Howard. She continue HBO dives. She has had previous lab work drawn while in hospital and is recent as yesterday, 03/08/2024 [facility]. Did have recent chest x-ray during her hospital stay in January 2024 along with echocardiogram. Did undergo EKG for evaluation prior to dive. HgbA1c during hospital admission was 11.3% on 02/15/2024. PICC line in place, currently on daptomycin and Unasyn per ID with completion in March 2024. The following work up and care recommendations were made: Dressing: EpiFix, Adaptic touch, Steri-Strips, dry sterile dressing right foot Wash: Do not get wet Tissue growth optimization: EpiFix Offload: Nonweightbearing to the right lower extremity Vascular: DP and PT pulses palpable with adequate capillary fill time. Vascular status not impacting healing at this time. Edema: Edema well-controlled. Will continue with Tubigrip stocking application Infection: No signs of infection. Currently on IV antibiotics via PICC line. Will continue daptomycin and Unasyn per ID Pain: No pain to the ulcerative site secondary to diabetic peripheral polyneuropathy Host factors: DM type II with peripheral polyneuropathy, uncontrolled. Charcot foot right foot I answered all the patient's questions. To return to the wound healing center in 1 week or call sooner if the patient has any questions or concerns.
[2024-03-30 13:14] LABS: Bedside Glucose 135 mg/dL (74-106)
[2024-03-30 15:26] LABS: Bedside Glucose 125 mg/dL (74-106)
[2024-03-30 15:26] LABS: Bedside Glucose 130 mg/dL (74-106)
[2024-03-30 15:26] LABS: Bedside Glucose 111 mg/dL (74-106)
[2024-03-31 10:53] LABS: Bedside Glucose 168 mg/dL (74-106)
[2024-03-31 13:07] LABS: Bedside Glucose 96 mg/dL (74-106)
[2024-03-31 13:13] VITALS: BP 115/66; BP 130/74; PULSE 74; PULSE 97; RESP 17; RESP 18; TEMP 35.6; TEMP 36.9
--- NOTE | 2024-03-31 13:14 | PCM.HBO.PN ---
History of Present Illness Date of Service: 03/31/24 Chief Complaint: HBO for right diabetic foot ulcer History of Wound: Ms. Falk is a 58-year-old currently being seen here at the wound center who was referred for HBO consult. Currently being managed for diabetic foot ulcer, documented as Gonzalez stage III. Has had at least 30 days of conservative wound care. History of insulin-dependent diabetes mellitus. Recent A1c was about 11. She however states that her numbers have been much better lately. No concerns for significant hypoglycemic episodes. Prior session of hyperbaric oxygen therapy about 2 years ago which she tolerated well. Had a bout of vertigo which improved after vestibular sessions by ENT. No tobacco abuse. No history of heart or lung disease. No history of seizure disorder severe claustrophobia. Subjective Subjective Phylicia presents today for hyperbaric oxygen therapy treatment. Today's session represents the 3rd treatment of a planned 30 sessions. Hyperbaric oxygen therapy was administered as per the facility's protocol. Hyperbaric oxygen therapy was administered at 2 forrest for 90 minutes with no air breaks. Patient tolerated hyperbaric oxygen therapy well, without complaints or complications. Upon emergence from the hyperbaric chamber, the patient's vital signs remained stable. Blood glucose measurements were obtained both prior to and following hyperbaric oxygen therapy, and are recorded as below. Post-treatment she was doing well and was discharged in good condition. Objective Data Objective Data Vital Signs: Vital Signs Temp Pulse Resp BP 96.3 F L 80 18 118/65 03/30/24 09:27 03/30/24 09:27 03/30/24 09:27 03/30/24 09:27 Lab / Micro Data Labs: Laboratory Results - last 24 hr 03/30/24 10:16: POC Glucose 125 H 03/30/24 10:29: POC Glucose 111 H 03/30/24 10:41: POC Glucose 130 H 03/30/24 12:52: POC Glucose 135 H 03/31/24 10:36: POC Glucose 168 H 03/31/24 12:50: POC Glucose 96 Exam Physical Exam Const alert, oriented x3 and no apparent distress Psych mental status grossly normal, thought process normal, cooperative, affect normal and speech normal Nursing Assessment and Debridement Post-Debridement Measurements and Additional Note: Post-Debridement Measurements/Treatment WC - Nurse 1 - General Ulcer Assessment Start: 03/24/24 13:15 Freq: Status: Active Protocol: RUKHSANA Activity Type Activity Date Activity User E-sign Co-sign Detail Recorded Client Recorded Date Recorded By Document 03/30/24 09:27 DL [id number] 03/30/24 09:30 DL 03/30/24 09:27 - Today's Visit Information Type of service Follow-up Visit (Physician/ELEVATOR INSPECTOR ) Arrival Mode Wheelchair Transfer Assistance None Patient Identification Verified (Name & Yes ) Patient Requires Transmission-Based No Precautions Finger Stick Blood Sugar(mg/dl) (if 103 indicated): Blood Sugar Stated by Patient Vital Signs Temperature (97.8 F-99.1 F) 96.3 F L Temperature Source Temporal Pulse Rate (60-100) 80 Respiratory Rate (12-18) 18 Respiratory rate source Observation Blood Pressure (90/60-120/80) 118/65 Blood Pressure Mean (mm Hg) 82 Source Monitor History Since Last Visit- (Skip if this is Patient's initial visit) Have you changed medications since your No last visit? Any new allergies or adverse reactions No Had a fall/change in ADL's that may No increase risk of falls Signs or symptoms of abuse and/or No neglect since last visit Have you been in the hospital since your No last visit? Has dressing in place as prescribed Yes Has compression in place as prescribed Yes Has offloadiing in place as prescribed Yes Experienced any changes in pain level or No management Pain Scale: 0-10 Numeric Is Patient Pain Free? Yes - Nurse 1 - General Ulcer Measurement Start: 03/24/24 13:15 Freq: Status: Active Protocol: Activity Type Activity Date Activity User E-sign Co-sign Detail Recorded Client Recorded Date Recorded By Document 03/30/24 09:31 DL [id number] 03/30/24 09:33 DL 03/30/24 09:31 Wound Center Nurse 1 #5 RDorsal/Anterior Ankle -Current Size (cm) - Length 8.5 -Current Size (cm) - Width 1.8 -Current Size (cm) - Depth 0.1 -Total Square Cm 15.30 -Exudate Amt Medium -Granulation Amt Medium (34-66%) -Granulation Quality Pale -Necrosis Amt None Present (0 %) -Necrotic Tissue Type Adherent Slough -Texture (Marie-wound Skin Appearance) Assessed -Moisture (Marie-wound Skin Appearance) Assessed -Color (Marie-wound Skin Appearance) Assessed -Temperature (Marie-wound Skin No Abnormality Appearance) (Pt Warm) -Tenderness on Palpation (Marie-wound No Skin Appearance) -Ulcer Cleansing Soap and Water -Foul Odor after Cleansing No -Anesthetic Used 5% Lidocaine Gel ALISSA - Nurse 2 - General Ulcer CM Notes Start: 03/24/24 13:15 Freq: Status: Active Protocol: Activity Type Activity Date Activity User E-sign Co-sign Detail Recorded Client Recorded Date Recorded By Document 03/30/24 09:51 [facility] [id number] 03/30/24 10:00 [facility] 03/30/24 09:51 Wound Center Nurse 2 -Time 09:51 -Correct Patient Yes -Correct Side, Site, Position Yes -Correct Procedure Yes -Procedure Performed Yes -Type of Procedure Debridement -Clinical Debridement Subcutaneous -Tissue Removed Subcutaneous -Post Debridement (cm) - Length 7.5 -Post Debridement (cm) - Width 2 -Post Debridement (cm) - Depth 0.1 -Total Square (Post) (cm) 15.0 -Area of Debridement (cm) - Length 7.5 -Area of Debridement (cm) - Width 2 -Total Square (Area) (cm) 15.0 -Tunneling No -Undermining/Tunneling No -Circular Undermining No -Wound/Ulcer Outcome Not Healed -Ulcer Cleansing Rinsed/ Irrigated with Saline -Foul Odor after Cleansing No -Bioengineered Tissue No -Type of Bioengineered Tissue Epifix Mesh -Expiration Date 09/21/28 -Product Lot Number [id number] -Percent Used 100 -Lot number of Saline Used [id number] -Bleeding Controlled with Pressure -Treatment Response Procedure Tolerated Well -Debridement - Subq, 1st 20sq cm No -Apply Skin Sub - 1st 25 sq cm - Feet 1 -Epifix Mesh (per sq cm) 11 Pain Scale: 0-10 Numeric Is Patient Pain Free? Yes WC - Nurse 3 - General Ulcer D/C NN Start: 03/24/24 13:15 Freq: Status: Active Protocol: Activity Type Activity Date Activity User E-sign Co-sign Detail Recorded Client Recorded Date Recorded By Document 03/30/24 10:13 DL [id number] 03/30/24 10:14 DL 03/30/24 10:13 Wound Care Center Nurse 3 #5 RDorsal/Anterior Ankle -Foul Odor after Cleansing No -Primary Dressing Applied Aquacel Extra -Primary Dressing Covered/Secured with Dry Gauze, Secured with Tape -Other Covering ARMANDO -Aquacel Extra 1 Treatment Response Procedure Tolerated Well Pain Scale: 0-10 Numeric Is Patient Pain Free? Yes WC - Visit Discharge Discharge Condition Stable Ambulatory Status Wheelchair Transportation Private [facility] Facility Type Home Health Orders Sent Yes Assessment/Plan Assessment/Plan (1) Type 2 diabetes mellitus with foot ulcer: CODE(S): E11.621 - Type 2 diabetes mellitus with foot ulcer; L97.509 - Non-pressure chronic ulcer of other part of unspecified foot with unspecified severity QUALIFIERS: Diabetes mellitus watermelon harvesting supervisor insulin use: with longterm use Qualified Code(s): E11.621 - Type 2 diabetes mellitus with foot ulcer; L97.509 - Non-pressure chronic ulcer of other part of unspecified foot with unspecified severity; Z79.4 - residential (current) use of insulin (2) 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: CODE(S): L97.512 - 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 (3) Type 2 diabetes mellitus with diabetic polyneuropathy: CODE(S): E11.42 - Type 2 diabetes mellitus with diabetic polyneuropathy QUALIFIERS: Diabetes mellitus watermelon harvesting supervisor insulin use: with watermelon harvesting supervisor use Qualified Code(s): E11.42 - Type 2 diabetes mellitus with diabetic polyneuropathy; Z79.4 - residential (current) use of insulin (4) Charcot's joint of right foot: CODE(S): M14.671 - Charcot's joint, right ankle and foot PLAN: Plan The patient appears to be tolerating hyperbaric oxygen therapy well, which will be continued as per their medical treatment plan.
[2024-04-03 09:59] LABS: Bedside Glucose 226 mg/dL (74-106)
--- NOTE | 2024-04-03 10:01 | PCM.HBO.PN ---
History of Present Illness Date of Service: 04/03/24 Chief Complaint: HBO for right diabetic foot ulcer History of Wound: Ms. Falk is a 58-year-old currently being seen here at the wound center who was referred for HBO consult. Currently being managed for diabetic foot ulcer, documented as Gonzalez stage III. Has had at least 30 days of conservative wound care. History of insulin-dependent diabetes mellitus. Recent A1c was about 11. She however states that her numbers have been much better lately. No concerns for significant hypoglycemic episodes. Prior session of hyperbaric oxygen therapy about 2 years ago which she tolerated well. Had a bout of vertigo which improved after vestibular sessions by ENT. No tobacco abuse. No history of heart or lung disease. No history of seizure disorder severe claustrophobia. Progress of Wound: Phylicia presents today for hyperbaric oxygen therapy treatment. Today's session represents the 4th treatment of a planned 30 sessions. Hyperbaric oxygen therapy was administered as per the facility's protocol. Hyperbaric oxygen therapy was administered at 2 forrest for 90 minutes with no air breaks. Patient tolerated hyperbaric oxygen therapy well, without complaints or complications. Upon emergence from the hyperbaric chamber, the patient's vital signs remained stable. Blood glucose measurements were obtained both prior to and following hyperbaric oxygen therapy, and are recorded as below. Post-treatment she was doing well and was discharged in good condition. Objective Data Objective Data Vital Signs: Vital Signs Temp Pulse Resp BP 96.0 F L 97 17 130/74 H 03/31/24 13:13 03/31/24 13:13 03/31/24 13:13 03/31/24 13:13 Lab / Micro Data Labs: Laboratory Results - last 24 hr 04/03/24 09:40: POC Glucose 226 H Exam Physical Exam Const alert and oriented x3 General Appearance: cooperative HEENT normocephalic and TM's normal bilaterally Eyes General Eye: normal appearance of both eyes Resp normal respiratory effort, no use of accessory muscles and clear to auscultation bilaterally Effort and Inspection: able to speak in complete sentences Cardio regular rate and regular rhythm Palpation: normal PMI Psych affect normal Charges/Coding Wound Center CF Procedures HBO Supervision: [id number] Hyperbaric Oxygen; supervision Assessment/Plan Assessment/Plan (1) Type 2 diabetes mellitus with foot ulcer: CODE(S): E11.621 - Type 2 diabetes mellitus with foot ulcer; L97.509 - Non-pressure chronic ulcer of other part of unspecified foot with unspecified severity QUALIFIERS: Diabetes mellitus director long term care insulin use: with retirement use Qualified Code(s): E11.621 - Type 2 diabetes mellitus with foot ulcer; L97.509 - Non-pressure chronic ulcer of other part of unspecified foot with unspecified severity; Z79.4 - intermediate project manager (current) use of insulin (2) 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: CODE(S): L97.512 - 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 (3) Type 2 diabetes mellitus with diabetic polyneuropathy: CODE(S): E11.42 - Type 2 diabetes mellitus with diabetic polyneuropathy QUALIFIERS: Diabetes mellitus retirement insulin use: with director long term care use Qualified Code(s): E11.42 - Type 2 diabetes mellitus with diabetic polyneuropathy; Z79.4 - [facility] (current) use of insulin (4) Charcot's joint of right foot: CODE(S): M14.671 - Charcot's joint, right ankle and foot PLAN: Plan The patient appears to be tolerating hyperbaric oxygen therapy well, which will be continued as per their medical treatment plan.
[2024-04-03 12:21] LABS: Bedside Glucose 162 mg/dL (74-106)
[2024-04-03 13:15] VITALS: BP 107/62; BP 108/71; PULSE 103; PULSE 83; RESP 18; TEMP 36.8; TEMP 36.9
[2024-04-04 09:55] LABS: Bedside Glucose 173 mg/dL (74-106)
[2024-04-04 12:09] LABS: Bedside Glucose 142 mg/dL (74-106)
[2024-04-04 12:29] VITALS: BP 101/61; BP 102/72; PULSE 101; PULSE 80; RESP 17; TEMP 36.8; TEMP 36.9
--- NOTE | 2024-04-05 10:45 | HBO.PN.PCM_ITS ---
History of Present Illness Date of Service: 04/04/24 Chief Complaint: HBO for right diabetic foot ulcer History of Wound: Ms. Falk is a 58-year-old currently being seen here at the wound center who was referred for HBO consult. Currently being managed for diabetic foot ulcer, documented as Gonzalez stage III. Has had at least 30 days of conservative wound care. History of insulin-dependent diabetes mellitus. Recent A1c was about 11. She however states that her numbers have been much better lately. No concerns for significant hypoglycemic episodes. Prior session of hyperbaric oxygen therapy about 2 years ago which she tolerated well. Had a bout of vertigo which improved after vestibular sessions by ENT. No tobacco abuse. No history of heart or lung disease. No history of seizure disorder severe claustrophobia. Progress of Wound: Phylicia presents today for hyperbaric oxygen therapy treatment. Today's session represents the 5th treatment of a planned 30 sessions. Hyperbaric oxygen therapy was administered as per the facility's protocol. Hyperbaric oxygen therapy was administered at 2 forrest for 90 minutes with no air breaks. Patient tolerated hyperbaric oxygen therapy well, without complaints or complications. Upon emergence from the hyperbaric chamber, the patient's vital signs remained stable. Blood glucose measurements were obtained both prior to and following hyperbaric oxygen therapy, and are recorded: Preprocedure blood sugar 173. Postprocedural blood sugar 142. Post-treatment she was doing well and was discharged in good condition. Subjective Subjective The patient appears to be making progress, and tolerating hyperbaric oxygen therapy well. Objective Data Objective Data Vital Signs: Vital Signs Temp Pulse Resp BP 98.2 F 101 H 17 102/72 04/04/24 12:29 04/04/24 12:29 04/04/24 12:29 04/04/24 12:29 Lab / Micro Data Labs: Laboratory Results - last 24 hr 04/04/24 11:47: POC Glucose 142 H Exam Physical Exam Const alert, oriented x3, no apparent distress and well nourished General Appearance: cooperative and well developed HEENT normocephalic and TM's normal bilaterally Head and Scalp: atraumatic Eyes EOMs intact bilaterally General Eye: normal appearance of both eyes Neck no JVD General: trachea midline Resp normal respiratory effort, no use of accessory muscles and clear to auscultation bilaterally Effort and Inspection: able to speak in complete sentences Psych affect normal Appearance: grossly normal and well kempt Speech: normal speech Charges/Coding Wound Center CF Procedures HBO Supervision: [id number] Hyperbaric Oxygen; supervision Assessment/Plan Assessment/Plan (1) Type 2 diabetes mellitus with foot ulcer: CODE(S): E11.621 - Type 2 diabetes mellitus with foot ulcer; L97.509 - Non-pressure chronic ulcer of other part of unspecified foot with unspecified severity QUALIFIERS: Diabetes mellitus prison insulin use: with terminal make up operator use Qualified Code(s): E11.621 - Type 2 diabetes mellitus with foot ulcer; L97.509 - Non-pressure chronic ulcer of other part of unspecified foot with unspecified severity; Z79.4 - [facility] (current) use of insulin (2) 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: CODE(S): L97.512 - 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 (3) Type 2 diabetes mellitus with diabetic polyneuropathy: CODE(S): E11.42 - Type 2 diabetes mellitus with diabetic polyneuropathy QUALIFIERS: Diabetes mellitus prison insulin use: with prison use Qualified Code(s): E11.42 - Type 2 diabetes mellitus with diabetic polyneuropathy; Z79.4 - terminal make up operator (current) use of insulin (4) Charcot's joint of right foot: CODE(S): M14.671 - Charcot's joint, right ankle and foot PLAN: Plan The patient appears to be tolerating hyperbaric oxygen therapy well, which will be continued as per the patient's medical treatment plan.
[2024-04-17 09:55] LABS: Bedside Glucose 207 mg/dL (74-106)
[2024-04-17 12:33] LABS: Bedside Glucose 166 mg/dL (74-106)
[2024-04-18 09:28] LABS: Bedside Glucose 248 mg/dL (74-106)
[2024-04-18 11:41] LABS: Bedside Glucose 149 mg/dL (74-106)
[2024-04-19 10:56] LABS: Bedside Glucose 150 mg/dL (74-106)
[2024-04-19 13:16] LABS: Bedside Glucose 118 mg/dL (74-106)
== END 2024-04-22 23:59 | disposition home or self-care (01) ==
LOC: WC 10:30
PROVIDERS: PCP Family Medicine; Referring Provider Student in an Organized Health Care Education/Training Program; Visit Provider Student in an Organized Health Care Education/Training Program
DX: E11.621 Type 2 diabetes mellitus with foot ulcer (principal); L97.512 Non-pressure chronic 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; E11.610 Type 2 diabetes mellitus with diabetic neuropathic arthropathy; E11.42 Type 2 diabetes mellitus with diabetic polyneuropathy; Z79.4 Long term (current) use of insulin; R42 Dizziness and giddiness; Z79.890 Hormone replacement therapy; Z79.899 Other long term (current) drug therapy
CPT/HCPCS: 15275; 82962; 99183; Q4186; G0277

== ENCOUNTER 2024-04-19 09:30 | Outpatient (RCR) | payer MEDICAID, SELFPAY ==
[2024-03-24 00:53] VITALS: BP 128/77; PULSE 87; RESP 18; TEMP 36.3
--- NOTE | 2024-03-30 12:09 | PCM.HBO.PN ---
History of Present Illness Date of Service: 03/30/24 Chief Complaint: HBO for right diabetic foot ulcer History of Wound: Ms. Falk is a 58-year-old currently being seen here at the wound center who was referred for HBO consult. Currently being managed for diabetic foot ulcer, documented as Gonzalez stage III. Has had at least 30 days of conservative wound care. History of insulin-dependent diabetes mellitus. Recent A1c was about 11. She however states that her numbers have been much better lately. No concerns for significant hypoglycemic episodes. Prior session of hyperbaric oxygen therapy about 2 years ago which she tolerated well. Had a bout of vertigo which improved after vestibular sessions by ENT. No tobacco abuse. No history of heart or lung disease. No history of seizure disorder severe claustrophobia. Progress of Wound: Progress: This represents the second hyperbaric oxygen therapy session. Tolerance: Hyperbaric oxygen therapy was administered as per the facility's protocol. 100% oxygen at 2 KELLY for 90 minutes without air breaks. Phylicia tolerated hyperbaric oxygen therapy without any complaints or complications. Upon emergence from the chamber, her vitals remained stable and she was discharged in stable condition. Pre and post blood glucose readings as documented. Objective Data Objective Data Vital Signs: Vital Signs Temp Pulse Resp BP 97.4 F L 87 18 128/77 H 03/24/24 00:53 03/24/24 00:53 03/24/24 00:53 03/24/24 00:53 Exam Physical Exam Const alert, oriented x3 and no apparent distress General Appearance: cooperative, comfortable and well kempt HEENT normocephalic, head/scalp atraumatic and hearing grossly normal bilaterally Tympanic Membrane: TM's normal bilaterally Eyes EOMs intact bilaterally Neck full ROM and no lymphadenopathy General: normal visual inspection Resp normal respiratory effort Effort and Inspection: able to speak in complete sentences Neuro oriented x3, CN's II-XII intact bilaterally, moves all extremities and no focal motor deficits Psych mental status grossly normal, thought process normal, cooperative and affect normal Charges/Coding Wound Center CF Procedures HBO Supervision: [id number] Hyperbaric Oxygen; supervision Assessment/Plan Assessment/Plan (1) Type 2 diabetes mellitus with foot ulcer: CODE(S): E11.621 - Type 2 diabetes mellitus with foot ulcer; L97.509 - Non-pressure chronic ulcer of other part of unspecified foot with unspecified severity QUALIFIERS: Diabetes mellitus exterminator termite insulin use: with halfway use Qualified Code(s): E11.621 - Type 2 diabetes mellitus with foot ulcer; L97.509 - Non-pressure chronic ulcer of other part of unspecified foot with unspecified severity; Z79.4 - terminal supervisor (current) use of insulin (2) 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: CODE(S): L97.512 - 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 (3) Type 2 diabetes mellitus with diabetic polyneuropathy: CODE(S): E11.42 - Type 2 diabetes mellitus with diabetic polyneuropathy QUALIFIERS: Diabetes mellitus exterminator termite insulin use: with exterminator termite use Qualified Code(s): E11.42 - Type 2 diabetes mellitus with diabetic polyneuropathy; Z79.4 - terminal supervisor (current) use of insulin (4) Charcot's joint of right foot: CODE(S): M14.671 - Charcot's joint, right ankle and foot PLAN: Plan The patient tolerated hyperbaric oxygen therapy well which will be continued per her medical plan. This note was generated with [employer] software. It may contain incorrect words, spelling, and punctuation that were not noted in checking the note before signing.
[2024-03-30 14:00] VITALS: BP 101/48; BP 118/65; PULSE 63; PULSE 80; RESP 16; RESP 18; TEMP 35.5; TEMP 36
[2024-04-06 09:36] VITALS: BP 106/69; PULSE 89; RESP 18; TEMP 35.9
--- NOTE | 2024-04-06 12:00 | PCM.WC.PN ---
History of Present Illness Date of Service: 04/06/24 Chief Complaint: HBO for right diabetic foot ulcer History of Wound: Ms. Falk is a 58-year-old currently being seen here at the wound center who was referred for HBO consult. Currently being managed for diabetic foot ulcer, documented as Gonzalez stage III. Has had at least 30 days of conservative wound care. History of insulin-dependent diabetes mellitus. Recent A1c was about 11. She however states that her numbers have been much better lately. No concerns for significant hypoglycemic episodes. Prior session of hyperbaric oxygen therapy about 2 years ago which she tolerated well. Had a bout of vertigo which improved after vestibular sessions by ENT. No tobacco abuse. No history of heart or lung disease. No history of seizure disorder severe claustrophobia. Progress of Wound: Progress: This represents the second hyperbaric oxygen therapy session. Tolerance: Hyperbaric oxygen therapy was administered as per the facility's protocol. 100% oxygen at 2 KELLY for 90 minutes without air breaks. Phylicia tolerated hyperbaric oxygen therapy without any complaints or complications. Upon emergence from the chamber, her vitals remained stable and she was discharged in stable condition. Pre and post blood glucose readings as documented. Subjective Subjective This is a 58-year-old female who continues to follow with the wound care center for right dorsal foot ulceration. She had previously undergone I&D on 02/10/2024 of the right foot. Continues to heal well and is changing outer dressing as needed. Has left graft in place to Right foot. HBO dives have stopped at the moment due to insurance issue. Ulcer site continues improvement. Denies constitutional symptoms. Denies further complaints. Objective Data Objective Data Vital Signs: Vital Signs Temp Pulse Resp BP 96.7 F L 89 18 106/69 04/06/24 09:36 04/06/24 09:36 04/06/24 09:36 04/06/24 09:36 Physical Exam Const alert, oriented x3 and no apparent distress General Appearance: cooperative HEENT normocephalic Eyes General Eye: normal appearance of both eyes Neck General: normal visual inspection Lymph Lymphatic: no lymphadenopathy noted and no lymphedema noted Resp normal respiratory effort Cardio regular rate and regular rhythm Extremity no calf tenderness and no pedal edema Extremity Narrative: Right lower extremity: Vascular: DP and PT pulses palpable with adequate capillary fill time to the digits. Normal temperature gradient. Hair growth is absent to the digits. Neurologic: Gross sensation intact. Absent protective sensation consistent with diabetic peripheral polyneuropathy Musculoskeletal: No pain to palpation about the ulcerative site secondary to diabetic peripheral polyneuropathy. There is a Charcot foot deformity noted of the right foot. No pain to palpation about the ulcerative site. Dermatologic: Incision site medial foot healed with cicatrix. No signs of infection. Incision site anterior leg with cicatrix proximally and distally. No signs of infection. There is a full thickness ulceration dorsally along the midfoot medial to the incision site with healthy granular tissue. Ulceration continues improvement with reduction in size. Ulceration site demonstrates no signs of infection. Skin no rashes or lesions noted and skin turgor normal Neuro moves all extremities Debridement Note Debridement Note Wound debrided: Right foot Laterality: Right Wound Grade/Stage: Gonzalez stage III Type of Debridement: Excisional debridement Anesthesia Used: 5% Lidocaine Gel Depth: Down to and including healthy tissue and in the subcutaneous layer Percentage of wound debrided: 100 Instrument Used: 5mm curette Tissue Removed: Fibrous, devitalized subcutaneous, biofilm, slough Severity: Fat Layer Exposed Amount of bleeding with debridement: Mild Bleeding Controlled with: Compression and gauze Patient tolerated procedure: Patient tolerated procedure well Post-Debridement Measurements and Additional Note: Post-Debridement Measurements/Treatment - Nurse 1 - General Ulcer Assessment Start: 03/30/24 14:00 Freq: Status: Active Protocol: RUKHSANA Activity Type Activity Date Activity User E-sign Co-sign Detail Recorded Client Recorded Date Recorded By Document 04/06/24 09:36 DALIA [id number] 04/06/24 09:38 DALIA 04/06/24 09:36 - Today's Visit Information Type of service Follow-up Visit (Physician/MASK FORMER ) Arrival Mode Ambulatory Transfer Assistance None Patient Identification Verified (Name & Yes ) Patient Requires Transmission-Based No Precautions Vital Signs Temperature (97.8 F-99.1 F) 96.7 F L Temperature Source Temporal Pulse Rate (60-100) 89 Pulse Location Monitor Respiratory Rate (12-18) 18 Respiratory rate source Observation Blood Pressure (90/60-120/80) 106/69 Blood Pressure Mean (mm Hg) 81 Source Monitor Position Semi-Fowlers Blood Pressure Location Left Arm History Since Last Visit- (Skip if this is Patient's initial visit) Have you changed medications since your No last visit? Any new allergies or adverse reactions No Had a fall/change in ADL's that may No increase risk of falls Signs or symptoms of abuse and/or No neglect since last visit Have you been in the hospital since your No last visit? Has dressing in place as prescribed Yes Has compression in place as prescribed No Has offloadiing in place as prescribed Yes Experienced any changes in pain level or No management Right Footwear Removable Cast Walker/Walking Boot Pain Scale: 0-10 Numeric Is Patient Pain Free? No RLE -Description Aching -Intensity 5 -Duration (hours) Acute -Pain Behavior Irritability, Withdrawal from Touch -Pain Aggravating Factors Exercise/ Activity -Alleviating Factors/Interventions Medication -Effectiveness of Alleviating Factor/ Moderately Intervention effective WC - Nurse 1 - General Ulcer Measurement Start: 03/30/24 14:00 Freq: Status: Active Protocol: Activity Type Activity Date Activity User E-sign Co-sign Detail Recorded Client Recorded Date Recorded By Document 04/06/24 09:36 RB [id number] 04/06/24 09:38 RB 04/06/24 09:36 Wound Center Nurse 1 #5 RDorsal/Anterior Ankle -Combined with other wound No -Current Size (cm) - Length 7.5 -Current Size (cm) - Width 2.3 -Current Size (cm) - Depth 0.3 -Total Square Cm 17.25 -Photo Taken Yes -Tunneling No -Undermining/Tunneling No -Circular Undermining No -Exudate Amt Medium -Exudate Type Serosanguineous -Wound Margin Thickened & Rolled Under -Granulation Amt Medium (34-66%) -Granulation [place] -Slough/Fibrin Yes -Necrosis Amt Small (1-33%) -Necrotic Tissue Type Adherent Slough -Structure Exposed N/A -Texture (Marie-wound Skin Appearance) Scarring -Moisture (Marie-wound Skin Appearance) Assessed -Color (Marie-wound Skin Appearance) Assessed -Temperature (Marie-wound Skin No Abnormality Appearance) (Pt Warm) -Tenderness on Palpation (Marie-wound No Skin Appearance) -Ulcer Cleansing Wound Cleanser -Foul Odor after Cleansing No -Anesthetic Used 5% Lidocaine Gel WC - Nurse 2 - General Ulcer CM Notes Start: 03/30/24 14:00 Freq: Status: Active Protocol: Activity Type Activity Date Activity User E-sign Co-sign Detail Recorded Client Recorded Date Recorded By Document 04/06/24 10:21 [facility] [id number] 04/06/24 10:28 [facility] 04/06/24 10:21 Wound Center Nurse 2 -Time 10:21 -Correct Patient Yes -Correct Side, Site, Position Yes -Correct Procedure Yes -Procedure Performed Yes -Type of Procedure Debridement -Clinical Debridement Subcutaneous -Tissue Removed Subcutaneous -Post Debridement (cm) - Length 4.7 -Post Debridement (cm) - Width 2 -Post Debridement (cm) - Depth 0.1 -Total Square (Post) (cm) 9.4 -Area of Debridement (cm) - Length 4.7 -Area of Debridement (cm) - Width 2 -Total Square (Area) (cm) 9.4 -Tunneling No -Undermining/Tunneling No -Circular Undermining No -Wound/Ulcer Outcome Not Healed -Ulcer Cleansing Rinsed/ Irrigated with Saline -Foul Odor after Cleansing No -Bioengineered Tissue No -Type of Bioengineered Tissue Epifix Mesh -Expiration Date 09/21/28 -Product Lot Number [id number] -Percent Used 100 -Lot number of Saline Used [id number] -Bleeding Controlled with Pressure -Treatment Response Procedure Tolerated Well -Offloading No -Debridement - Subq, 1st 20sq cm No -Apply Skin Sub - 1st 25 sq cm - Feet 1 -Epifix Mesh (per sq cm) 11 Pain Scale: 0-10 Numeric Is Patient Pain Free? Yes - Nurse 3 - General Ulcer D/C NN Start: 03/30/24 14:00 Freq: Status: Active Protocol: Activity Type Activity Date Activity User E-sign Co-sign Detail Recorded Client Recorded Date Recorded By Document 04/06/24 10:46 [id number] 04/06/24 10:46 04/06/24 10:46 Wound Care Center Nurse 3 #5 RDorsal/Anterior Ankle -Primary Dressing Applied Aquacel Extra -Other Dressing ABD -Primary Dressing Covered/Secured with Dry Gauze,Dry Gauze & Roll Gauze,Secured with Tape -Aquacel Extra 1 Right -Other verito Pain Scale: 0-10 Numeric Is Patient Pain Free? Yes - Visit Discharge Discharge Condition Stable Ambulatory Status Ambulatory Transportation Private Auto Medication Reconcilliation completed & No provided to patient/care provider Clinical Summary of Care Provided Yes Assessment/Plan Assessment/Plan (1) 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: CODE(S): L97.512 - 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 (2) Type 2 diabetes mellitus with diabetic polyneuropathy: CODE(S): E11.42 - Type 2 diabetes mellitus with diabetic polyneuropathy QUALIFIERS: Diabetes mellitus residential insulin use: with residential use Qualified Code(s): E11.42 - Type 2 diabetes mellitus with diabetic polyneuropathy; Z79.4 - intermediate (current) use of insulin (3) Type 2 diabetes mellitus with foot ulcer: CODE(S): E11.621 - Type 2 diabetes mellitus with foot ulcer; L97.509 - Non-pressure chronic ulcer of other part of unspecified foot with unspecified severity QUALIFIERS: Diabetes mellitus residential insulin use: with residential use Qualified Code(s): E11.621 - Type 2 diabetes mellitus with foot ulcer; L97.509 - Non-pressure chronic ulcer of other part of unspecified foot with unspecified severity; Z79.4 - intermediate (current) use of insulin (4) Charcot's joint of right foot: CODE(S): M14.671 - Charcot's joint, right ankle and foot PLAN: Plan Patient seen and evaluated Patient is status post I&D of the right foot. DOS 02/10/2024, POD #56 Cicatrix at incision sites medial foot and anterior leg with no signs of infection. Ulceration dorsal foot continues granulating in well versus her previous visit. She continues healing well at this time and will continue HBO dives. Ulceration predebridement measures 4.6 cm x 1.9 cm x 0.1 cm Ulceration did undergo debridement as noted on clinical panel above. Postdebridement measurements 4.7 cm x 2.0 cm x 0.1 cm. EpiFix #4 applied to the ulcerative bed and dressed with Adaptic touch and anchored with Steri-Strips. Dry sterile dressing applied to site with Tubigrip compression. She was instructed to not get the site wet and utilize cast bag when showering. She is understanding of this. She may change outer dressings as needed. She has been approved for EpiFix, will continue application. Will be permitted to continue protective weightbearing to the right lower extremity in CAM boot. Discussed medical clearance for HBO and she has been cleared by Dr. Howard. She continue HBO dives. She has had previous lab work drawn while in hospital and is recent as yesterday, 03/08/2024 [facility]. Did have chest x-ray during her hospital stay in January 2024 along with echocardiogram. Did undergo EKG for evaluation prior to dive. HgbA1c during hospital admission was 11.3% on 02/15/2024. PICC removed 03/31/24. Did take 1 week additional oral antibiotic and has now finished these per ID. The following work up and care recommendations were made: Dressing: EpiFix, Adaptic touch, Steri-Strips, dry sterile dressing right foot Wash: Do not get wet Tissue growth optimization: EpiFix Offload: Nonweightbearing to the right lower extremity Vascular: DP and PT pulses palpable with adequate capillary fill time. Vascular status not impacting healing at this time. Edema: Edema well-controlled. Will continue with Tubigrip stocking application Infection: No signs of infection. Currently on IV antibiotics via PICC line. Will continue daptomycin and Unasyn per ID Pain: No pain to the ulcerative site secondary to diabetic peripheral polyneuropathy Host factors: DM type II with peripheral polyneuropathy, uncontrolled. Charcot foot right foot At this time prognosis is good and she continues healing well. I answered all the patient's questions. To return to the wound healing center in 1 week or call sooner if the patient has any questions or concerns.
--- NOTE | 2024-04-07 09:06 | WC ---
PHOTO 04/06/24 RIGHT DORSAL FOOT
[2024-04-13 09:43] VITALS: BP 126/69; PULSE 91; RESP 18; TEMP 36.1
--- NOTE | 2024-04-13 09:58 | PN.PCM_ITS ---
History of Present Illness Date of Service: 04/13/24 Chief Complaint: HBO for right diabetic foot ulcer History of Wound: Ms. Falk is a 58-year-old currently being seen here at the wound center who was referred for HBO consult. Currently being managed for diabetic foot ulcer, documented as Gonzalez stage III. Has had at least 30 days of conservative wound care. History of insulin-dependent diabetes mellitus. Recent A1c was about 11. She however states that her numbers have been much better lately. No concerns for significant hypoglycemic episodes. Prior session of hyperbaric oxygen therapy about 2 years ago which she tolerated well. Had a bout of vertigo which improved after vestibular sessions by ENT. No tobacco abuse. No history of heart or lung disease. No history of seizure disorder severe claustrophobia. Progress of Wound: Progress: This represents the second hyperbaric oxygen therapy session. Tolerance: Hyperbaric oxygen therapy was administered as per the facility's protocol. 100% oxygen at 2 KELLY for 90 minutes without air breaks. Phylicia tolerated hyperbaric oxygen therapy without any complaints or complications. Upon emergence from the chamber, her vitals remained stable and she was discharged in stable condition. Pre and post blood glucose readings as documented. Subjective Subjective This is a 58-year-old female who continues to follow with the wound care center for right dorsal foot ulceration. She had previously undergone I&D on 02/10/2024 of the right foot. Continues to heal well and is changing outer dressing as needed. Has left graft in place to Right foot. HBO dives have stopped at the moment due to insurance issue, physician supervising dive will have peer to peer review. Ulcer site continues improvement. Denies constitutional symptoms. Denies further complaints. Objective Data Objective Data Vital Signs: Vital Signs Temp Pulse Resp BP 97 F L 91 18 126/69 H 04/13/24 09:43 04/13/24 09:43 04/13/24 09:43 04/13/24 09:43 Physical Exam Const alert, oriented x3 and no apparent distress General Appearance: cooperative HEENT normocephalic Eyes General Eye: normal appearance of both eyes Neck General: normal visual inspection Lymph Lymphatic: no lymphadenopathy noted and no lymphedema noted Resp normal respiratory effort Cardio regular rate and regular rhythm Extremity no calf tenderness and no pedal edema Extremity Narrative: Right lower extremity: Vascular: DP and PT pulses palpable with adequate capillary fill time to the digits. Normal temperature gradient. Hair growth is absent to the digits. Neurologic: Gross sensation intact. Absent protective sensation consistent with diabetic peripheral polyneuropathy Musculoskeletal: No pain to palpation about the ulcerative site secondary to diabetic peripheral polyneuropathy. There is a Charcot foot deformity noted of the right foot. No pain to palpation about the ulcerative site. Dermatologic: Incision site medial foot healed with cicatrix. No signs of infection. Incision site anterior leg with cicatrix proximally and distally. No signs of infection. There is a full thickness ulceration dorsally along the midfoot medial to the incision site with healthy granular tissue. Ulceration continues improvement with reduction in size. Ulceration site demonstrates no signs of infection. Skin no rashes or lesions noted and skin turgor normal Neuro moves all extremities Debridement Note Debridement Note Wound debrided: Right foot Laterality: Right Wound Grade/Stage: Gonzalez stage III Type of Debridement: Excisional debridement Anesthesia Used: 5% Lidocaine Gel Depth: Down to and including healthy tissue and in the subcutaneous layer Percentage of wound debrided: 100 Instrument Used: 5mm curette and 7mm curette Tissue Removed: Fibrous, devitalized subcutaneous, biofilm, slough Severity: Fat Layer Exposed Amount of bleeding with debridement: Mild Bleeding Controlled with: Compression and gauze Patient tolerated procedure: Patient tolerated procedure well Post-Debridement Measurements and Additional Note: Post-Debridement Measurements/Treatment - Nurse 1 - General Ulcer Assessment Start: 03/30/24 14:00 Freq: Status: Active Protocol: WC.LOWTHAD Activity Type Activity Date Activity User E-sign Co-sign Detail Recorded Client Recorded Date Recorded By Document 04/06/24 09:36 [id number] 04/06/24 09:38 RB Document 04/13/24 09:43 RB [id number] 04/13/24 09:46 RB 04/06/24 04/13/24 09:36 09:43 - Today's Visit Information Type of service Follow-up Visit Follow-up Visit (Physician/WEEDER THINNER (Physician/WEEDER THINNER ) ) Arrival Mode Ambulatory Ambulatory Transfer Assistance None None Patient Identification Verified (Name & Yes Yes ) Patient Requires Transmission-Based No No Precautions Vital Signs Temperature (97.8 F-99.1 F) 96.7 F L 97 F L Temperature Source Temporal Temporal Pulse Rate (60-100) 89 91 Pulse Location Monitor Monitor Respiratory Rate (12-18) 18 18 Respiratory rate source Observation Observation Blood Pressure (90/60-120/80) 106/69 126/69 H Blood Pressure Mean (mm Hg) 81 88 Source Monitor Monitor Position Semi-Fowlers Semi-Fowlers Blood Pressure Location Left Arm Left Arm History Since Last Visit- (Skip if this is Patient's initial visit) Have you changed medications since your No No last visit? Any new allergies or adverse reactions No No Had a fall/change in ADL's that may No No increase risk of falls Signs or symptoms of abuse and/or No No neglect since last visit Have you been in the hospital since your No No last visit? Has dressing in place as prescribed Yes Yes Has compression in place as prescribed No No Has offloadiing in place as prescribed Yes No Experienced any changes in pain level or No No management Right Footwear Removable Cast Surgical Shoe Walker/Walking with pressure Boot relief insole Pain Scale: 0-10 Numeric Is Patient Pain Free? No Yes RLE -Description Aching -Intensity 5 -Duration (hours) Acute -Pain Behavior Irritability, Withdrawal from Touch -Pain Aggravating Factors Exercise/ Activity -Alleviating Factors/Interventions Medication -Effectiveness of Alleviating Factor/ Moderately Intervention effective WC - Nurse 1 - General Ulcer Measurement Start: 03/30/24 14:00 Freq: Status: Active Protocol: Activity Type Activity Date Activity User E-sign Co-sign Detail Recorded Client Recorded Date Recorded By Document 04/06/24 09:36 RB [id number] 04/06/24 09:38 RB Document 04/13/24 09:43 RB [id number] 04/13/24 09:46 RB 04/06/24 04/13/24 09:36 09:43 Wound Center Nurse 1 #5 RDorsal/Anterior Ankle -Combined with other wound No No -Current Size (cm) - Length 7.5 7 -Current Size (cm) - Width 2.3 1.9 -Current Size (cm) - Depth 0.3 0.1 -Total Square Cm 17.25 13.3 -Photo Taken Yes Yes -Tunneling No No -Undermining/Tunneling No No -Circular Undermining No No -Exudate Amt Medium Large -Exudate Type Serosanguineous Serosanguineous -Wound Margin Thickened & Distinct, Rolled Under Outline Attached -Granulation Amt Medium (34-66%) Large (67-100%) -Granulation Quality Pastos Hyper- granulation, Pastos,Red -Slough/Fibrin Yes Yes -Necrosis Amt Small (1-33%) Small (1-33%) -Necrotic Tissue Type Adherent Slough Adherent Slough -Structure Exposed N/A N/A -Texture (Marie-wound Skin Appearance) Scarring Assessed, Scarring -Moisture (Marie-wound Skin Appearance) Assessed Assessed -Color (Marie-wound Skin Appearance) Assessed Assessed -Temperature (Marie-wound Skin No Abnormality No Abnormality Appearance) (Pt Warm) (Pt Warm) -Tenderness on Palpation (Marie-wound No No Skin Appearance) -Ulcer Cleansing Wound Cleanser Wound Cleanser -Foul Odor after Cleansing No No -Anesthetic Used 5% Lidocaine 5% Lidocaine Gel Gel WC - Nurse 2 - General Ulcer CM Notes Start: 03/30/24 14:00 Freq: Status: Active Protocol: Activity Type Activity Date Activity User E-sign Co-sign Detail Recorded Client Recorded Date Recorded By Document 04/06/24 10:21 [facility] [id number] 04/06/24 10:28 [facility] 04/06/24 10:21 Wound Center Nurse 2 -Time 10:21 -Correct Patient Yes -Correct Side, Site, Position Yes -Correct Procedure Yes -Procedure Performed Yes -Type of Procedure Debridement -Clinical Debridement Subcutaneous -Tissue Removed Subcutaneous -Post Debridement (cm) - Length 4.7 -Post Debridement (cm) - Width 2 -Post Debridement (cm) - Depth 0.1 -Total Square (Post) (cm) 9.4 -Area of Debridement (cm) - Length 4.7 -Area of Debridement (cm) - Width 2 -Total Square (Area) (cm) 9.4 -Tunneling No -Undermining/Tunneling No -Circular Undermining No -Wound/Ulcer Outcome Not Healed -Ulcer Cleansing Rinsed/ Irrigated with Saline -Foul Odor after Cleansing No -Bioengineered Tissue No -Type of Bioengineered Tissue Epifix Mesh -Expiration Date 09/21/28 -Product Lot Number [id number] -Percent Used 100 -Lot number of Saline Used [id number] -Bleeding Controlled with Pressure -Treatment Response Procedure Tolerated Well -Offloading No -Debridement - Subq, 1st 20sq cm No -Apply Skin Sub - 1st 25 sq cm - Feet 1 -Epifix Mesh (per sq cm) 11 Pain Scale: 0-10 Numeric Is Patient Pain Free? Yes WC - Nurse 3 - General Ulcer D/C NN Start: 03/30/24 14:00 Freq: Status: Active Protocol: Activity Type Activity Date Activity User E-sign Co-sign Detail Recorded Client Recorded Date Recorded By Document 04/06/24 10:46 DALIA [id number] 04/06/24 10:46 DALIA 04/06/24 10:46 Wound Care Center Nurse 3 #5 RDorsal/Anterior Ankle -Primary Dressing Applied Aquacel Extra -Other Dressing ABD -Primary Dressing Covered/Secured with Dry Gauze,Dry Gauze & Roll Gauze,Secured with Tape -Aquacel Extra 1 Right -Other verito Pain Scale: 0-10 Numeric Is Patient Pain Free? 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 (2) Type 2 diabetes mellitus with diabetic polyneuropathy: CODE(S): E11.42 - Type 2 diabetes mellitus with diabetic polyneuropathy QUALIFIERS: Diabetes mellitus detention insulin use: with long wall shear operator use Qualified Code(s): E11.42 - Type 2 diabetes mellitus with diabetic polyneuropathy; Z79.4 - termite renewal inspector (current) use of insulin (3) Type 2 diabetes mellitus with foot ulcer: CODE(S): E11.621 - Type 2 diabetes mellitus with foot ulcer; L97.509 - Non-pressure chronic ulcer of other part of unspecified foot with unspecified severity QUALIFIERS: Diabetes mellitus long wall shear operator insulin use: with long wall shear operator use Qualified Code(s): E11.621 - Type 2 diabetes mellitus with foot ulcer; L97.509 - Non-pressure chronic ulcer of other part of unspecified foot with unspecified severity; Z79.4 - termite renewal inspector (current) use of insulin (4) Charcot's joint of right foot: CODE(S): M14.671 - Charcot's joint, right ankle and foot PLAN: Plan Patient seen and evaluated Patient is status post I&D of the right foot. DOS 02/10/2024, POD #63 Cicatrix at incision sites medial foot and anterior leg with no signs of infection. Ulceration dorsal foot continues granulating in well versus her previous visit. She continues healing well at this time and will continue HBO dives, following resolution with insurance. Ulceration predebridement measures 3.9 cm x 2.3 cm x 0.1 cm Ulceration did undergo debridement as noted on clinical panel above. Postdebridement measurements 4.0 cm x 2.5 cm x 0.1 cm. EpiFix #5 applied to the ulcerative bed and dressed with Adaptic touch and anchored with Steri-Strips. Dry sterile dressing applied to site with Tubigrip compression. She was instructed to not get the site wet and utilize cast bag when showering. She is understanding of this. She may change outer dressings as needed. She has been approved for EpiFix, will continue application. Will be permitted to continue protective weightbearing to the right lower extremity in CAM boot. Previously discussed medical clearance for HBO and she has been cleared by Dr. Howard. She will continue HBO dives as this is essential to her healing. She has had previous lab work drawn while in hospital 03/08/2024 [facility]. Did have chest x-ray during her hospital stay in January 2024 along with echocardiogram. Did undergo EKG for evaluation prior to dive. HgbA1c during hospital admission was 11.3% on 02/15/2024. Sugars have been well controlled following approval of insulin on new insurance. I do expect her A1c to continue to decrease. PICC removed 03/31/24. Did take 1 week additional oral antibiotic and has now finished these per ID. She will resume oral antibiotic for next 2 weeks now that her stomach issues have improved. Will take with probiotic. Continues to follow with ID. The following work up and care recommendations were made: Dressing: EpiFix, Adaptic touch, Steri-Strips, dry sterile dressing right foot Wash: Do not get wet Tissue growth optimization: EpiFix Offload: Nonweightbearing to the right lower extremity Vascular: DP and PT pulses palpable with adequate capillary fill time. Vascular status not impacting healing at this time. Edema: Edema well-controlled. Will continue with Tubigrip stocking application Infection: No signs of infection. Currently on IV antibiotics via PICC line. Will continue daptomycin and Unasyn per ID Pain: No pain to the ulcerative site secondary to diabetic peripheral polyneuropathy Host factors: DM type II with peripheral polyneuropathy, uncontrolled. Charcot foot right foot At this time prognosis is good and she continues healing well. I answered all the patient's questions. To return to the wound healing center in 2 weeks or call sooner if the patient has any questions or concerns.
--- NOTE | 2024-04-14 08:56 | WC ---
PHOTO 04/13/24 RIGHT DORSAL
--- NOTE | 2024-04-17 10:03 | WC ---
PT HERE FOR HBO TX. HBO NURSE REQUESTED EVAL OF PTS R FOOT. PT COMPLAINING OF ^ PAIN OF THE FOOT/CALF/ALL THE WAY UP TO HER GROIN. FOOT IS ^SWOLLEN AND RED. WARM TO TOUCH. EPIFIX REMAINS INTACT. PT CONT'S TAKING HER PO DOXY. FOOT LOOKS WORSE THAN AT LAST VISIT. DR MYERS UPDATED. PT DOES NOT WANT TO GO TO ER AT THIS TIME. N.O. TO START AUGMENTIN 875MG PO DAILY IN ADDITION TO CURRENT DOXY. RX CALLED TO [facility] PER PTS PREFERENCE. PT OK TO PROCEED W/ HBO TX IF FEELS UP TO IT. STAFF HERE TO CLOSELY MONITOR FOOT EACH DAY W/ HBO. PT AWARE TO GO TO ER FOR WORSENING OF SX.
--- NOTE | 2024-04-17 12:17 | PCM.HBO.PN ---
History of Present Illness Date of Service: 04/17/24 Chief Complaint: HBO for right diabetic foot ulcer History of Wound: Ms. Falk is a 58-year-old currently being seen here at the wound center who was referred for HBO consult. Currently being managed for diabetic foot ulcer, documented as Gonzalez stage III. Has had at least 30 days of conservative wound care. History of insulin-dependent diabetes mellitus. Recent A1c was about 11. She however states that her numbers have been much better lately. No concerns for significant hypoglycemic episodes. Prior session of hyperbaric oxygen therapy about 2 years ago which she tolerated well. Had a bout of vertigo which improved after vestibular sessions by ENT. No tobacco abuse. No history of heart or lung disease. No history of seizure disorder severe claustrophobia. Progress of Wound: Phylicia presents today for hyperbaric oxygen therapy treatment. Today's session represents the 6th treatment of a planned 30 sessions. Tolerance: Hyperbaric oxygen therapy was administered as per the facility's protocol. 100% oxygen at 2 KLELY for 90 minutes without air breaks. Phylicia tolerated hyperbaric oxygen therapy without any complaints or complications. Upon emergence from the chamber, her vitals remained stable and she was discharged in stable condition. Pre and post blood glucose readings as documented. Subjective Subjective The patient appears to be making progress, and tolerating hyperbaric oxygen therapy well. Objective Data Objective Data Vital Signs: Vital Signs Temp Pulse Resp BP 97 F L 91 18 126/69 H 04/13/24 09:43 04/13/24 09:43 04/13/24 09:43 04/13/24 09:43 Exam Physical Exam Const alert and oriented x3 General Appearance: cooperative HEENT normocephalic and TM's normal bilaterally Eyes General Eye: normal appearance of both eyes Resp normal respiratory effort, no use of accessory muscles and clear to auscultation bilaterally Effort and Inspection: able to speak in complete sentences Cardio regular rate and regular rhythm Palpation: normal PMI Psych affect normal Charges/Coding Wound Center CF Procedures HBO Supervision: [id number] Hyperbaric Oxygen; supervision Assessment/Plan Assessment/Plan (1) Type 2 diabetes mellitus with foot ulcer: CODE(S): E11.621 - Type 2 diabetes mellitus with foot ulcer; L97.509 - Non-pressure chronic ulcer of other part of unspecified foot with unspecified severity QUALIFIERS: Diabetes mellitus half-way insulin use: with half-way use Qualified Code(s): E11.621 - Type 2 diabetes mellitus with foot ulcer; L97.509 - Non-pressure chronic ulcer of other part of unspecified foot with unspecified severity; Z79.4 - field technical specialist (current) use of insulin (2) 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: CODE(S): L97.512 - 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 (3) Type 2 diabetes mellitus with diabetic polyneuropathy: CODE(S): E11.42 - Type 2 diabetes mellitus with diabetic polyneuropathy QUALIFIERS: Diabetes mellitus general partner insulin use: with general partner use Qualified Code(s): E11.42 - Type 2 diabetes mellitus with diabetic polyneuropathy; Z79.4 - field technical specialist (current) use of insulin (4) Charcot's joint of right foot: CODE(S): M14.671 - Charcot's joint, right ankle and foot PLAN: Plan The patient appears to be tolerating hyperbaric oxygen therapy well, which will be continued as per the patient's medical treatment plan.
[2024-04-17 12:25] VITALS: BP 115/68; BP 127/64; PULSE 102; PULSE 61; RESP 14; RESP 15; TEMP 36.6; TEMP 36.8
--- NOTE | 2024-04-18 09:50 | PCM.HBO.PN ---
History of Present Illness Date of Service: 04/18/24 Chief Complaint: HBO for right diabetic foot ulcer History of Wound: Ms. Falk is a 58-year-old currently being seen here at the wound center who was referred for HBO consult. Currently being managed for diabetic foot ulcer, documented as Gonzalez stage III. Has had at least 30 days of conservative wound care. History of insulin-dependent diabetes mellitus. Recent A1c was about 11. She however states that her numbers have been much better lately. No concerns for significant hypoglycemic episodes. Prior session of hyperbaric oxygen therapy about 2 years ago which she tolerated well. Had a bout of vertigo which improved after vestibular sessions by ENT. No tobacco abuse. No history of heart or lung disease. No history of seizure disorder severe claustrophobia. Progress of Wound: Phylicia presents today for hyperbaric oxygen therapy treatment. Today's session represents the 7th treatment of a planned 30 sessions. Tolerance: Hyperbaric oxygen therapy was administered as per the facility's protocol. 100% oxygen at 2 KELLY for 90 minutes without air breaks. Phylicia tolerated hyperbaric oxygen therapy without any complaints or complications. Upon emergence from the chamber, her vitals remained stable and she was discharged in stable condition. Pre and post blood glucose readings as documented. Objective Data Objective Data Vital Signs: Vital Signs Temp Pulse Resp BP 97.8 F 102 H 15 127/64 H 04/17/24 12:25 04/17/24 12:25 04/17/24 12:25 04/17/24 12:25 Exam Physical Exam Const alert and oriented x3 General Appearance: cooperative HEENT normocephalic and TM's normal bilaterally Eyes General Eye: normal appearance of both eyes Resp normal respiratory effort, no use of accessory muscles and clear to auscultation bilaterally Effort and Inspection: able to speak in complete sentences Cardio regular rate and regular rhythm Palpation: normal PMI Psych affect normal Charges/Coding Wound Center CF Procedures HBO Supervision: [id number] Hyperbaric Oxygen; supervision Assessment/Plan Assessment/Plan (1) Type 2 diabetes mellitus with foot ulcer: CODE(S): E11.621 - Type 2 diabetes mellitus with foot ulcer; L97.509 - Non-pressure chronic ulcer of other part of unspecified foot with unspecified severity QUALIFIERS: Diabetes mellitus termite exterminator helper insulin use: with termite exterminator helper use Qualified Code(s): E11.621 - Type 2 diabetes mellitus with foot ulcer; L97.509 - Non-pressure chronic ulcer of other part of unspecified foot with unspecified severity; Z79.4 - care home (current) use of insulin (2) 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: CODE(S): L97.512 - 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 (3) Type 2 diabetes mellitus with diabetic polyneuropathy: CODE(S): E11.42 - Type 2 diabetes mellitus with diabetic polyneuropathy QUALIFIERS: Diabetes mellitus termite exterminator helper insulin use: with termite exterminator helper use Qualified Code(s): E11.42 - Type 2 diabetes mellitus with diabetic polyneuropathy; Z79.4 - care home (current) use of insulin (4) Charcot's joint of right foot: CODE(S): M14.671 - Charcot's joint, right ankle and foot PLAN: Plan The patient appears to be tolerating hyperbaric oxygen therapy well, which will be continued as per the patient's medical treatment plan.
[2024-04-18 11:32] VITALS: BP 131/73; BP 94/68; PULSE 103; PULSE 78; RESP 14; RESP 16; TEMP 36; TEMP 36.4
--- NOTE | 2024-04-19 11:30 | PCM.HBO.PN ---
History of Present Illness Date of Service: 04/19/24 Chief Complaint: HBO for right diabetic foot ulcer History of Wound: Ms. Falk is a 58-year-old currently being seen here at the wound center who was referred for HBO consult. Currently being managed for diabetic foot ulcer, documented as Gonzalez stage III. Has had at least 30 days of conservative wound care. History of insulin-dependent diabetes mellitus. Recent A1c was about 11. She however states that her numbers have been much better lately. No concerns for significant hypoglycemic episodes. Prior session of hyperbaric oxygen therapy about 2 years ago which she tolerated well. Had a bout of vertigo which improved after vestibular sessions by ENT. No tobacco abuse. No history of heart or lung disease. No history of seizure disorder severe claustrophobia. Progress of Wound: Phylicia presents today for hyperbaric oxygen therapy treatment. Today's session represents the 8th treatment of a planned 30 sessions. Tolerance: Hyperbaric oxygen therapy was administered as per the facility's protocol. 100% oxygen at 2 KELLY for 90 minutes without air breaks. Phylicia tolerated hyperbaric oxygen therapy without any complaints or complications. Upon emergence from the chamber, her vitals remained stable and she was discharged in stable condition. Pre and post blood glucose readings as documented. Objective Data Objective Data Vital Signs: Vital Signs Temp Pulse Resp BP 97.5 F L 103 H 14 131/73 H 04/18/24 11:32 04/18/24 11:32 04/18/24 11:32 04/18/24 11:32 Exam Physical Exam Const alert and oriented x3 General Appearance: cooperative HEENT normocephalic and TM's normal bilaterally Eyes General Eye: normal appearance of both eyes Resp normal respiratory effort, no use of accessory muscles and clear to auscultation bilaterally Effort and Inspection: able to speak in complete sentences Cardio regular rate and regular rhythm Palpation: normal PMI Psych affect normal Charges/Coding Wound Center CF Procedures HBO Supervision: [id number] Hyperbaric Oxygen; supervision Assessment/Plan Assessment/Plan (1) Type 2 diabetes mellitus with foot ulcer: CODE(S): E11.621 - Type 2 diabetes mellitus with foot ulcer; L97.509 - Non-pressure chronic ulcer of other part of unspecified foot with unspecified severity QUALIFIERS: Diabetes mellitus penitentiary insulin use: with long term care administrator use Qualified Code(s): E11.621 - Type 2 diabetes mellitus with foot ulcer; L97.509 - Non-pressure chronic ulcer of other part of unspecified foot with unspecified severity; Z79.4 - intermediate frame tender (current) use of insulin (2) 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: CODE(S): L97.512 - 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 (3) Type 2 diabetes mellitus with diabetic polyneuropathy: CODE(S): E11.42 - Type 2 diabetes mellitus with diabetic polyneuropathy QUALIFIERS: Diabetes mellitus penitentiary insulin use: with long term care administrator use Qualified Code(s): E11.42 - Type 2 diabetes mellitus with diabetic polyneuropathy; Z79.4 - detention (current) use of insulin (4) Charcot's joint of right foot: CODE(S): M14.671 - Charcot's joint, right ankle and foot PLAN: Plan The patient appears to be tolerating hyperbaric oxygen therapy well, which will be continued as per the patient's medical treatment plan.
[2024-04-19 13:23] VITALS: BP 110/55; BP 114/73; PULSE 74; PULSE 95; RESP 16; TEMP 35.8; TEMP 36.8
== END 2024-04-22 23:59 | disposition home or self-care (01) ==
LOC: WC 09:30
PROVIDERS: PCP Family Medicine; Referring Provider Student in an Organized Health Care Education/Training Program; Visit Provider Student in an Organized Health Care Education/Training Program
DX: E11.621 Type 2 diabetes mellitus with foot ulcer (principal); L97.412 Non-pressure chronic ulcer of right heel and midfoot with fat layer exposed; E11.42 Type 2 diabetes mellitus with diabetic polyneuropathy; E11.610 Type 2 diabetes mellitus with diabetic neuropathic arthropathy; Z79.4 Long term (current) use of insulin; Z79.899 Other long term (current) drug therapy
CPT/HCPCS: 15275; 99183; Q4186; G0277

== ENCOUNTER 2024-04-19 10:16 | Outpatient (CLI) | payer MEDICAID, SELFPAY ==
[2024-04-19 11:54] LABS: Amphetamine Urine VISTA NEGATIVE (<1000 ng/mL); Barbiturate Urine VISTA NEGATIVE (< 200 ng/mL); Benzodiazepine Urine VISTA NEGATIVE (< 200 ng/mL); Cocaine Urine VISTA NEGATIVE (< 300 ng/mL); Ecstacy Urine VISTA NEGATIVE (< 500 ng/mL); Methadone Urine VISTA NEGATIVE (< 300 ng/mL); PCP Urine VISTA NEGATIVE (< 25 ng/mL); THC Urine VISTA NEGATIVE (< 50 ng/mL); Vista UDS pH Range 5
== END 2024-04-19 23:59 | disposition home or self-care (01) ==
PROVIDERS: PCP Family Medicine; Referring Provider Anesthesiology Pain Medicine; Visit Provider Anesthesiology Pain Medicine
DX: F11.20 Opioid dependence, uncomplicated (principal); E11.621 Type 2 diabetes mellitus with foot ulcer; L97.412 Non-pressure chronic ulcer of right heel and midfoot with fat layer exposed; E11.42 Type 2 diabetes mellitus with diabetic polyneuropathy; E11.610 Type 2 diabetes mellitus with diabetic neuropathic arthropathy; Z79.4 Long term (current) use of insulin; Z79.899 Other long term (current) drug therapy
CPT/HCPCS: 80307; 99183; G0277

== ENCOUNTER 2024-05-22 08:00 | Outpatient (RCR) | payer MEDICAID, SELFPAY ==
[2024-04-23 00:53] VITALS: BP 110/55; BP 114/73; BP 128/77; PULSE 74; PULSE 87; PULSE 95; RESP 16; RESP 18; TEMP 35.8; TEMP 36.3; TEMP 36.8
[2024-04-24 10:08] VITALS: BP 111/63; PULSE 96; RESP 18; TEMP 36.4
[2024-04-24 11:50] VITALS: BP 107/59; PULSE 64; RESP 18; TEMP 35.8
[2024-04-25 07:08] LABS: Bedside Glucose 255 mg/dL (74-106)
[2024-04-25 07:09] LABS: Bedside Glucose 98 mg/dL (74-106)
[2024-04-25 09:42] LABS: Bedside Glucose 186 mg/dL (74-106)
--- NOTE | 2024-04-25 11:11 | PCM.HBO.PN ---
History of Present Illness Date of Service: 04/25/24 Chief Complaint: HBO for right diabetic foot ulcer History of Wound: Ms. Falk is a 58-year-old currently being seen here at the wound center who was referred for HBO consult. Currently being managed for diabetic foot ulcer, documented as Gonzalez stage III. Has had at least 30 days of conservative wound care. History of insulin-dependent diabetes mellitus. Recent A1c was about 11. She however states that her numbers have been much better lately. No concerns for significant hypoglycemic episodes. Prior session of hyperbaric oxygen therapy about 2 years ago which she tolerated well. Had a bout of vertigo which improved after vestibular sessions by ENT. No tobacco abuse. No history of heart or lung disease. No history of seizure disorder severe claustrophobia. Progress of Wound: Phylicia presents today for hyperbaric oxygen therapy treatment. Today's session represents the 10th treatment of a planned 30 sessions. Tolerance: Hyperbaric oxygen therapy was administered as per the facility's protocol. 100% oxygen at 2 KELLY for 90 minutes without air breaks. Phylicia tolerated hyperbaric oxygen therapy without any complaints or complications. Upon emergence from the chamber, her vitals remained stable and she was discharged in stable condition. Pre and post blood glucose readings as documented. Objective Data Objective Data Vital Signs: Vital Signs Temp Pulse Resp BP 96.4 F L 64 18 107/59 L 04/24/24 11:50 04/24/24 11:50 04/24/24 11:50 04/24/24 11:50 Lab / Micro Data Labs: Laboratory Results - last 24 hr 04/24/24 09:23: POC Glucose 255 H 04/24/24 11:53: POC Glucose 98 04/25/24 09:24: POC Glucose 186 H Exam Physical Exam Const alert and oriented x3 General Appearance: cooperative HEENT normocephalic and TM's normal bilaterally Eyes General Eye: normal appearance of both eyes Resp normal respiratory effort, no use of accessory muscles and clear to auscultation bilaterally Effort and Inspection: able to speak in complete sentences Cardio regular rate and regular rhythm Palpation: normal PMI Psych affect normal Charges/Coding Wound Center CF Procedures HBO Supervision: [id number] Hyperbaric Oxygen; supervision Assessment/Plan Assessment/Plan (1) Type 2 diabetes mellitus with foot ulcer: CODE(S): E11.621 - Type 2 diabetes mellitus with foot ulcer; L97.509 - Non-pressure chronic ulcer of other part of unspecified foot with unspecified severity QUALIFIERS: Diabetes mellitus half-way insulin use: with half-way use Qualified Code(s): E11.621 - Type 2 diabetes mellitus with foot ulcer; L97.509 - Non-pressure chronic ulcer of other part of unspecified foot with unspecified severity; Z79.4 - brass burnisher (current) use of insulin (2) 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: CODE(S): L97.512 - 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 (3) Type 2 diabetes mellitus with diabetic polyneuropathy: CODE(S): E11.42 - Type 2 diabetes mellitus with diabetic polyneuropathy QUALIFIERS: Diabetes mellitus manager basketball insulin use: with manager basketball use Qualified Code(s): E11.42 - Type 2 diabetes mellitus with diabetic polyneuropathy; Z79.4 - brass burnisher (current) use of insulin (4) Charcot's joint of right foot: CODE(S): M14.671 - Charcot's joint, right ankle and foot PLAN: Plan The patient appears to be tolerating hyperbaric oxygen therapy well, which will be continued as per the patient's medical treatment plan.
[2024-04-25 11:43] VITALS: BP 102/54; BP 116/74; PULSE 74; PULSE 86; RESP 16; RESP 17; TEMP 35.9; TEMP 36.5
[2024-04-25 11:59] LABS: Bedside Glucose 105 mg/dL (74-106)
[2024-04-26 09:43] LABS: Bedside Glucose 166 mg/dL (74-106)
--- NOTE | 2024-04-26 10:57 | PCM.HBO.PN ---
History of Present Illness Date of Service: 04/26/24 Chief Complaint: HBO for right diabetic foot ulcer History of Wound: Ms. Falk is a 58-year-old currently being seen here at the wound center who was referred for HBO consult. Currently being managed for diabetic foot ulcer, documented as Gonzalez stage III. Has had at least 30 days of conservative wound care. History of insulin-dependent diabetes mellitus. Recent A1c was about 11. She however states that her numbers have been much better lately. No concerns for significant hypoglycemic episodes. Prior session of hyperbaric oxygen therapy about 2 years ago which she tolerated well. Had a bout of vertigo which improved after vestibular sessions by ENT. No tobacco abuse. No history of heart or lung disease. No history of seizure disorder severe claustrophobia. Progress of Wound: Phylicia presents today for hyperbaric oxygen therapy treatment. Today's session represents the 11th treatment of a planned 30 sessions. Tolerance: Hyperbaric oxygen therapy was administered as per the facility's protocol. 100% oxygen at 2 KELLY for 90 minutes without air breaks. Phylicia tolerated hyperbaric oxygen therapy without any complaints or complications. Upon emergence from the chamber, her vitals remained stable and she was discharged in stable condition. Pre and post blood glucose readings as documented. She had some right ear pain during the initial pressurization of her dive. The pressure was decreased and she was able to get her ear to pop. She was then able to to continue with her dive at the 2 KELLY with no further issues. Upon emergence, her right ear had a very thin red stipe along the handle of the Malleus. Her left TM had some clear fluid present. She is denying any pain at this time. She states that she felt like she could not get her ear to pop as she typically does. Since she has some clear fluid present, recommend she take some Pseudafed today to see if that is able help with the fluid. She is denying any congestion or cold like symptoms. Objective Data Objective Data Vital Signs: Vital Signs Temp Pulse Resp BP 96.7 F L 86 17 116/74 04/25/24 11:43 04/25/24 11:43 04/25/24 11:43 04/25/24 11:43 Lab / Micro Data Labs: Laboratory Results - last 24 hr 04/25/24 11:34: POC Glucose 105 04/26/24 09:22: POC Glucose 166 H Exam Physical Exam Const alert and oriented x3 General Appearance: cooperative HEENT normocephalic and TM's normal bilaterally Eyes General Eye: normal appearance of both eyes Resp normal respiratory effort, no use of accessory muscles and clear to auscultation bilaterally Effort and Inspection: able to speak in complete sentences Cardio regular rate and regular rhythm Palpation: normal PMI Psych affect normal Charges/Coding Wound Center CF Procedures HBO Supervision: [id number] Hyperbaric Oxygen; supervision Assessment/Plan Assessment/Plan (1) Type 2 diabetes mellitus with foot ulcer: CODE(S): E11.621 - Type 2 diabetes mellitus with foot ulcer; L97.509 - Non-pressure chronic ulcer of other part of unspecified foot with unspecified severity QUALIFIERS: Diabetes mellitus terminal clerk insulin use: with correction use Qualified Code(s): E11.621 - Type 2 diabetes mellitus with foot ulcer; L97.509 - Non-pressure chronic ulcer of other part of unspecified foot with unspecified severity; Z79.4 - middle or intermediate school principal (current) use of insulin (2) 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: CODE(S): L97.512 - 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 (3) Type 2 diabetes mellitus with diabetic polyneuropathy: CODE(S): E11.42 - Type 2 diabetes mellitus with diabetic polyneuropathy QUALIFIERS: Diabetes mellitus correction insulin use: with terminal clerk use Qualified Code(s): E11.42 - Type 2 diabetes mellitus with diabetic polyneuropathy; Z79.4 - assisted (current) use of insulin (4) Charcot's joint of right foot: CODE(S): M14.671 - Charcot's joint, right ankle and foot PLAN: Plan The patient appears to be tolerating hyperbaric oxygen therapy well, which will be continued as per the patient's medical treatment plan.
[2024-04-26 11:20] VITALS: BP 108/57; BP 110/66; PULSE 62; PULSE 83; RESP 15; RESP 16; TEMP 35.7; TEMP 35.8
[2024-04-26 12:05] LABS: Bedside Glucose 95 mg/dL (74-106)
[2024-04-27 09:30] VITALS: BP 104/57; PULSE 83; RESP 18
[2024-04-27 10:57] LABS: Bedside Glucose 134 mg/dL (74-106)
--- NOTE | 2024-04-27 11:16 | PN.PCM_ITS ---
History of Present Illness Date of Service: 04/27/24 Chief Complaint: HBO for right diabetic foot ulcer History of Wound: Ms. Falk is a 58-year-old currently being seen here at the wound center who was referred for HBO consult. Currently being managed for diabetic foot ulcer, documented as Gonzalez stage III. Has had at least 30 days of conservative wound care. History of insulin-dependent diabetes mellitus. Recent A1c was about 11. She however states that her numbers have been much better lately. No concerns for significant hypoglycemic episodes. Prior session of hyperbaric oxygen therapy about 2 years ago which she tolerated well. Had a bout of vertigo which improved after vestibular sessions by ENT. No tobacco abuse. No history of heart or lung disease. No history of seizure disorder severe claustrophobia. Progress of Wound: Phylicia presents today for hyperbaric oxygen therapy treatment. Today's session represents the 11th treatment of a planned 30 sessions. Tolerance: Hyperbaric oxygen therapy was administered as per the facility's protocol. 100% oxygen at 2 KELLY for 90 minutes without air breaks. Phylicia tolerated hyperbaric oxygen therapy without any complaints or complications. Upon emergence from the chamber, her vitals remained stable and she was discharged in stable condition. Pre and post blood glucose readings as documented. She had some right ear pain during the initial pressurization of her dive. The pressure was decreased and she was able to get her ear to pop. She was then able to to continue with her dive at the 2 KELLY with no further issues. Upon emergence, her right ear had a very thin red stipe along the handle of the Malleus. Her left TM had some clear fluid present. She is denying any pain at this time. She states that she felt like she could not get her ear to pop as she typically does. Since she has some clear fluid present, recommend she take some Pseudafed today to see if that is able help with the fluid. She is denying any congestion or cold like symptoms. Subjective Subjective This is a 58-year-old female who continues to follow with the wound care center for right dorsal foot ulceration. She had previously undergone I&D on 02/10/2024 of the right foot. Continues to heal well and is changing outer dressing as needed leaving graft in place to Right foot. She is continuing to take oral ant ibiotic as instructed. HBO dives have resumed and are going well. Ulcer site continues improvement. Denies constitutional symptoms. Denies further complaints. Objective Data Objective Data Vital Signs: Vital Signs Temp Pulse Resp BP O2 Del Method 96.2 F L 83 18 104/57 L Room Air 04/26/24 11:20 04/27/24 09:30 04/27/24 09:30 04/27/24 09:30 04/27/24 09:30 Oxygen Delivery Method Room Air Lab / Micro Data Labs: Laboratory Results - last 24 hr 04/26/24 11:46: POC Glucose 95 04/27/24 10:36: POC Glucose 134 H Physical Exam Const alert, oriented x3 and no apparent distress General Appearance: cooperative HEENT normocephalic Eyes General Eye: normal appearance of both eyes Neck General: normal visual inspection Lymph Lymphatic: no lymphadenopathy noted and no lymphedema noted Resp normal respiratory effort Cardio regular rate and regular rhythm Extremity Extremity Narrative: Right lower extremity: Vascular: DP and PT pulses palpable with adequate capillary fill time to the digits. Normal temperature gradient. Hair growth is absent to the digits. Neurologic: Gross sensation intact. Absent protective sensation consistent with diabetic peripheral polyneuropathy Musculoskeletal: No pain to palpation about the ulcerative site secondary to diabetic peripheral polyneuropathy. There is a Charcot foot deformity noted of the right foot. No pain to palpation about the ulcerative site. Dermatologic: Incision site medial foot healed with cicatrix. No signs of infection. Incision site anterior leg with cicatrix proximally and distally. No signs of infection. There is a full thickness ulceration dorsally along the midfoot medial to the incision site with healthy granular tissue. Ulceration continues improvement with reduction in size and granulating in well. Ulceration site demonstrates no signs of infection. Skin no rashes or lesions noted and skin turgor normal Neuro moves all extremities Debridement Note Debridement Note Wound debrided: Right foot Laterality: Right Wound Grade/Stage: Gonzalez stage III Type of Debridement: Excisional debridement Anesthesia Used: 5% Lidocaine Gel Depth: Down to and including healthy tissue and in the subcutaneous layer Percentage of wound debrided: 100 Instrument Used: 7mm curette Tissue Removed: Fibrous, devitalized subcutaneous, biofilm, slough Severity: Fat Layer Exposed Amount of bleeding with debridement: Mild Bleeding Controlled with: Compression and gauze Patient tolerated procedure: Patient tolerated procedure well Post-Debridement Measurements and Additional Note: Post-Debridement Measurements/Treatment WC - Nurse 1 - General Ulcer Assessment Start: 04/24/24 09:59 Freq: Status: Active Protocol: RUKHSANA Activity Type Activity Date Activity User E-sign Co-sign Detail Recorded Client Recorded Date Recorded By Document 04/27/24 09:30 KW [id number] 04/27/24 09:41 KW 04/27/24 09:30 - Today's Visit Information Type of service Follow-up Visit (Physician/FEED MANAGEMENT ADVISOR ) Arrival Mode Ambulatory Patient Identification Verified (Name & Yes ) Vital Signs Temperature Source Temporal Pulse Rate (60-100) 83 Pulse Location Monitor Respiratory Rate (12-18) 18 Respiratory rate source Observation Oxygen Delivery Method Room Air Blood Pressure (90/60-120/80) 104/57 L Blood Pressure Mean (mm Hg) 72 Source Monitor Position Sitting Blood Pressure Location Left Arm History Since Last Visit- (Skip if this is Patient's initial visit) Have you changed medications since your No last visit? Any new allergies or adverse reactions No Had a fall/change in ADL's that may No increase risk of falls Signs or symptoms of abuse and/or No neglect since last visit Have you been in the hospital since your No last visit? Has dressing in place as prescribed Yes Has compression in place as prescribed Yes Has offloadiing in place as prescribed Yes Experienced any changes in pain level or No management Left Footwear Regular Shoe Right Footwear Removable Cast Walker/Walking Boot Pain Scale: 0-10 Numeric Is Patient Pain Free? Yes - Nurse 1 - General Ulcer Measurement Start: 04/24/24 09:59 Freq: Status: Active Protocol: Activity Type Activity Date Activity User E-sign Co-sign Detail Recorded Client Recorded Date Recorded By Document 04/27/24 09:30 KW [id number] 04/27/24 09:41 KW 04/27/24 09:30 Wound Center Nurse 1 #5 RDorsal/Anterior Ankle -Current Size (cm) - Length 3.3 -Current Size (cm) - Width 2.2 -Current Size (cm) - Depth 0 -Total Square Cm 7.26 -Date of Last Picture (Recall this 04/27/24 field) -Exudate Amt Medium -Exudate Type Serosanguineous -Wound Margin Distinct, Outline Attached -Granulation Amt Small (1-33%) -Granulation Quality Hyper- granulation, [place] -Necrosis Amt Large (67-100%) -Necrotic Tissue Type Adherent Slough -Texture (Marie-wound Skin Appearance) Assessed -Moisture (Marie-wound Skin Appearance) Assessed -Color (Marie-wound Skin Appearance) Assessed -Temperature (Marie-wound Skin No Abnormality Appearance) (Pt Warm) -Tenderness on Palpation (Marie-wound No Skin Appearance) -Ulcer Cleansing Soap and Water -Foul Odor after Cleansing No -Anesthetic Used 5% Lidocaine Gel WC - Nurse 3 - General Ulcer D/C NN Start: 04/24/24 09:59 Freq: Status: Active Protocol: Activity Type Activity Date Activity User E-sign Co-sign Detail Recorded Client Recorded Date Recorded By Document 04/27/24 10:26 NO [id number] 04/27/24 10:32 KW 04/27/24 10:26 Wound Care Center Nurse 3 -Primary Dressing Applied Aquacel Extra -Other Dressing atb ointment to prox part -Primary Dressing Covered/Secured with Dry Gauze & Roll Gauze, Secured with Tape -Aquacel Extra 1 Right -Compression Wrap Sebastian Wrap Pain Scale: 0-10 Numeric Is Patient Pain Free? 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 (2) Type 2 diabetes mellitus with foot ulcer: CODE(S): E11.621 - Type 2 diabetes mellitus with foot ulcer; L97.509 - Non-pressure chronic ulcer of other part of unspecified foot with unspecified severity QUALIFIERS: Diabetes mellitus buttermilk drier operator insulin use: with penitentiary use Qualified Code(s): E11.621 - Type 2 diabetes mellitus with foot ulcer; L97.509 - Non-pressure chronic ulcer of other part of unspecified foot with unspecified severity; Z79.4 - custodial (current) use of insulin (3) Charcot's joint of right foot: CODE(S): M14.671 - Charcot's joint, right ankle and foot (4) Type 2 diabetes mellitus with diabetic polyneuropathy: CODE(S): E11.42 - Type 2 diabetes mellitus with diabetic polyneuropathy QUALIFIERS: Diabetes mellitus penitentiary insulin use: with buttermilk drier operator use Qualified Code(s): E11.42 - Type 2 diabetes mellitus with diabetic p olyneuropathy; Z79.4 - intermediate designer (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 DOS 02/10/2024, POD #77 Cicatrix at incision sites medial foot and anterior leg with no signs of infection. Ulceration dorsal foot continues granulating in well versus her previous visit. She continues healing well at this time and has resumed HBO dives. Ulceration predebridement measures 3.3 cm x 2.9 cm x 0.1 cm Ulceration did undergo debridement as noted on clinical panel above. Postdebridement measurements 3.4 cm x 3.0 cm x 0.1 cm. EpiFix #6 applied to the ulcerative bed and dressed with Adaptic touch and anchored with Steri-Strips. Dry sterile dressing applied to site with Tubigrip compression. She was instructed to not get the site wet and utilize cast bag when showering. She is understanding of this. She may change outer dressings as needed. She has been approved for EpiFix, will continue application. Currently finishing oral antibiotic doxycycline 100 mg twice daily and Augmentin 875mg daily. States 7 days remain. Will be permitted to continue protective weightbearing to the right lower extremity in CAM boot. Previously discussed medical clearance for HBO and she has been cleared by Dr. Howard. She will continue HBO dives as this is essential to her healing. She has had previous lab work drawn while in hospital 03/08/2024 [facility]. Did have chest x-ray during her hospital stay in January 2024 along with echocardiogram. Did undergo EKG for evaluation prior to dive. HgbA1c during hospital admission was 11.3% on 02/15/2024. Sugars have been well controlled following approval of insulin on new insurance. I do expect her A1c to continue to decrease. PICC removed 03/31/24. She will resume oral antibiotic now that her stomach issues have improved. Will take with probiotic. Continues to follow with ID. The following work up and care recommendations were made: Dressing: EpiFix, Adaptic touch, Steri-Strips, dry sterile dressing right foot Wash: Do not get wet Tissue growth optimization: EpiFix Offload: Nonweightbearing to the right lower extremity Vascular: DP and PT pulses palpable with adequate capillary fill time. Vascular status not impacting healing at this time. Edema: Edema well-controlled. Will continue with Tubigrip stocking application Infection: No signs of infection. Currently on IV antibiotics via PICC line. Will continue daptomycin and Unasyn per ID Pain: No pain to the ulcerative site secondary to diabetic peripheral polyneuropathy Host factors: DM type II with peripheral polyneuropathy, uncontrolled. Charcot foot right foot At this time prognosis is good and she continues healing well. Will continue HBO therapy as this is aiding in wound healing. I answered all the patient's questions. To return to the wound healing center in 1 week or call sooner if the patient has any questions or concerns.
[2024-04-27 12:33] VITALS: BP 109/71; BP 127/75; PULSE 73; PULSE 78; RESP 14; RESP 15; TEMP 35.7; TEMP 35.8
--- NOTE | 2024-04-27 12:33 | HBO.PN.PCM_ITS ---
History of Present Illness Date of Service: 04/27/24 Chief Complaint: HBO for right diabetic foot ulcer History of Wound: Ms. Falk is a 58-year-old currently being seen here at the wound center who was referred for HBO consult. Currently being managed for diabetic foot ulcer, documented as Gonzalez stage III. Has had at least 30 days of conservative wound care. History of insulin-dependent diabetes mellitus. Recent A1c was about 11. She however states that her numbers have been much better lately. No concerns for significant hypoglycemic episodes. Prior session of hyperbaric oxygen therapy about 2 years ago which she tolerated well. Had a bout of vertigo which improved after vestibular sessions by ENT. No tobacco abuse. No history of heart or lung disease. No history of seizure disorder severe claustrophobia. Progress of Wound: Progress: Today's session represents the 12th treatment of a planned 30 sessions. Tolerance: Hyperbaric oxygen therapy was administered as per the facility's protocol. 100% oxygen at 2 KELLY for 90 minutes without air breaks. She tolerated hyperbaric oxygen therapy without any complaints or complications. Upon emergence from the chamber, her vitals remained stable and she was discharged in stable condition. Pre and post blood glucose readings as documented. Objective Data Objective Data Vital Signs: Vital Signs Temp Pulse Resp BP O2 Del Method 96.2 F L 83 18 104/57 L Room Air 04/26/24 11:20 04/27/24 09:30 04/27/24 09:30 04/27/24 09:30 04/27/24 09:30 Oxygen Delivery Method Room Air Lab / Micro Data Labs: Laboratory Results - last 24 hr 04/27/24 10:36: POC Glucose 134 H Exam Physical Exam Const alert, oriented x3 and no apparent distress General Appearance: cooperative, comfortable and well kempt HEENT normocephalic, head/scalp atraumatic and hearing grossly normal bilaterally Eyes EOMs intact bilaterally Neck full ROM General: normal visual inspection Resp normal respiratory effort Effort and Inspection: able to speak in complete sentences Neuro oriented x3 and CN's II-XII intact bilaterally Psych mental status grossly normal, thought process normal, cooperative and affect normal Nursing Assessment and Debridement Post-Debridement Measurements and Additional Note: Post-Debridement Measurements/Treatment WC - Nurse 1 - General Ulcer Assessment Start: 04/24/24 09:59 Freq: Status: Active Protocol: WC.LOWEXT Activity Type Activity Date Activity User E-sign Co-sign Detail Recorded Client Recorded Date Recorded By Document 04/27/24 09:30 KW [id number] 04/27/24 09:41 04/27/24 09:30 - Today's Visit Information Type of service Follow-up Visit (Physician/E COMMERCE MANAGER ) Arrival Mode Ambulatory Patient Identification Verified (Name & Yes ) Vital Signs Temperature Source Temporal Pulse Rate (60-100) 83 Pulse Location Monitor Respiratory Rate (12-18) 18 Respiratory rate source Observation Oxygen Delivery Method Room Air Blood Pressure (90/60-120/80) 104/57 L Blood Pressure Mean (mm Hg) 72 Source Monitor Position Sitting Blood Pressure Location Left Arm History Since Last Visit- (Skip if this is Patient's initial visit) Have you changed medications since your No last visit? Any new allergies or adverse reactions No Had a fall/change in ADL's that may No increase risk of falls Signs or symptoms of abuse and/or No neglect since last visit Have you been in the hospital since your No last visit? Has dressing in place as prescribed Yes Has compression in place as prescribed Yes Has offloadiing in place as prescribed Yes Experienced any changes in pain level or No management Left Footwear Regular Shoe Right Footwear Removable Cast Walker/Walking Boot Pain Scale: 0-10 Numeric Is Patient Pain Free? Yes - Nurse 1 - General Ulcer Measurement Start: 04/24/24 09:59 Freq: Status: Active Protocol: Activity Type Activity Date Activity User E-sign Co-sign Detail Recorded Client Recorded Date Recorded By Document 04/27/24 09:30 KW [id number] 04/27/24 09:41 04/27/24 09:30 Wound Center Nurse 1 #5 RDorsal/Anterior Ankle -Current Size (cm) - Length 3.3 -Current Size (cm) - Width 2.2 -Current Size (cm) - Depth 0 -Total Square Cm 7.26 -Date of Last Picture (Recall this 04/27/24 field) -Exudate Amt Medium -Exudate Type Serosanguineous -Wound Margin Distinct, Outline Attached -Granulation Amt Small (1-33%) -Granulation Quality Hyper- granulation, [place] -Necrosis Amt Large (67-100%) -Necrotic Tissue Type Adherent Slough -Texture (Marie-wound Skin Appearance) Assessed -Moisture (Marie-wound Skin Appearance) Assessed -Color (Marie-wound Skin Appearance) Assessed -Temperature (Marie-wound Skin No Abnormality Appearance) (Pt Warm) -Tenderness on Palpation (Marie-wound No Skin Appearance) -Ulcer Cleansing Soap and Water -Foul Odor after Cleansing No -Anesthetic Used 5% Lidocaine Gel WC - Nurse 3 - General Ulcer D/C NN Start: 04/24/24 09:59 Freq: Status: Active Protocol: Activity Type Activity Date Activity User E-sign Co-sign Detail Recorded Client Recorded Date Recorded By Document 04/27/24 10:26 NO [id number] 04/27/24 10:32 KW 04/27/24 10:26 Wound Care Center Nurse 3 -Primary Dressing Applied Aquacel Extra -Other Dressing atb ointment to prox part -Primary Dressing Covered/Secured with Dry Gauze & Roll Gauze, Secured with Tape -Aquacel Extra 1 Right -Compression Wrap Sebastian Wrap Pain Scale: 0-10 Numeric Is Patient Pain Free? Yes WC - Visit Discharge Discharge Condition Stable Ambulatory Status Ambulatory Transportation Private Auto Medication Reconcilliation completed & No provided to patient/care provider Clinical Summary of Care Provided Yes Charges/Coding Wound Center CF Procedures HBO Supervision: [id number] Hyperbaric Oxygen; supervision Assessment/Plan Assessment/Plan (1) Type 2 diabetes mellitus with foot ulcer: CODE(S): E11.621 - Type 2 diabetes mellitus with foot ulcer; L97.509 - Non-pressure chronic ulcer of other part of unspecified foot with unspecified severity QUALIFIERS: Diabetes mellitus residential insulin use: with residential use Qualified Code(s): E11.621 - Type 2 diabetes mellitus with foot ulcer; L97.509 - Non-pressure chronic ulcer of other part of unspecified foot with unspecified severity; 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 (2) 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: CODE(S): L97.512 - 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 (3) Type 2 diabetes mellitus with diabetic polyneuropathy: CODE(S): E11.42 - Type 2 diabetes mellitus with diabetic polyneuropathy QUALIFIERS: Diabetes mellitus meteorology professor insulin use: with residential use Qualified Code(s): E11.42 - Type 2 diabetes mellitus with diabetic polyneuropathy; Z79.4 - retirement (current) use of insulin (4) Charcot's joint of right foot: CODE(S): M14.671 - Charcot's joint, right ankle and foot PLAN: Plan Phylicia tolerated hyperbaric oxygen therapy well which will be continued per her medical plan. This note was generated with [employer] software. It may contain incorrect words, spelling, and punctuation that were not noted in checking the note before signing.
[2024-04-27 13:07] LABS: Bedside Glucose 150 mg/dL (74-106)
[2024-04-28 08:31] LABS: Bedside Glucose 150 mg/dL (74-106)
--- NOTE | 2024-04-28 11:02 | WC ---
PHOTO 04/27/24 RIGHT DORSAL
[2024-04-28 12:47] VITALS: BP 114/63; PULSE 74; RESP 14; TEMP 36.6
[2024-05-03 07:20] LABS: Bedside Glucose 127 mg/dL (74-106)
--- NOTE | 2024-05-04 09:42 | PN.PCM_ITS ---
History of Present Illness Date of Service: 05/04/24 Chief Complaint: HBO for right diabetic foot ulcer History of Wound: Ms. Falk is a 58-year-old currently being seen here at the wound center who was referred for HBO consult. Currently being managed for diabetic foot ulcer, documented as Gonzalez stage III. Has had at least 30 days of conservative wound care. History of insulin-dependent diabetes mellitus. Recent A1c was about 11. She however states that her numbers have been much better lately. No concerns for significant hypoglycemic episodes. Prior session of hyperbaric oxygen therapy about 2 years ago which she tolerated well. Had a bout of vertigo which improved after vestibular sessions by ENT. No tobacco abuse. No history of heart or lung disease. No history of seizure disorder severe claustrophobia. Progress of Wound: Progress: Today's session represents the 12th treatment of a planned 30 sessions. Tolerance: Hyperbaric oxygen therapy was administered as per the facility's protocol. 100% oxygen at 2 KELLY for 90 minutes without air breaks. She tolerated hyperbaric oxygen therapy without any complaints or complications. Upon emergence from the chamber, her vitals remained stable and she was discharged in stable condition. Pre and post blood glucose readings as documented. Subjective Subjective This is a 58-year-old female who continues to follow with the wound care center for right dorsal foot ulceration. She had previously undergone I&D on 02/10/2024 of the right foot. Continues to heal well and is changing outer dressing as needed leaving graft in place to Right foot. She is continuing to take oral antibiotic as instructed. HBO dives have temporarily been paused due to needing ear tube placement. She will resume dives next week. Ulcer site continues improvement. Denies constitutional symptoms. Denies further complaints. Objective Data Objective Data Vital Signs: Vital Signs Temp Pulse Resp BP O2 Del Method 97.9 F 74 14 114/63 Room Air 04/28/24 12:47 04/28/24 12:47 04/28/24 12:47 04/28/24 12:47 04/27/24 09:30 Oxygen Delivery Method Room Air Physical Exam Const alert, oriented x3 and no apparent distress General Appearance: cooperative HEENT normocephalic Eyes General Eye: normal appearance of both eyes Neck General: normal visual inspection Lymph Lymphatic: no lymphadenopathy noted and no lymphedema noted Resp normal respiratory effort Cardio regular rate and regular rhythm Extremity Extremity Narrative: Right lower extremity: Vascular: DP and PT pulses palpable with adequate capillary fill time to the digits. Normal temperature gradient. Hair growth is absent to the digits. Neurologic: Gross sensation intact. Absent protective sensation consistent with diabetic peripheral polyneuropathy Musculoskeletal: No pain to palpation about the ulcerative site secondary to diabetic peripheral polyneuropathy. There is a Charcot foot deformity noted of the right foot. No pain to palpation about the ulcerative site. Dermatologic: Incision site medial foot healed with cicatrix. No signs of infection. Incision site anterior leg with cicatrix proximally and distally. No signs of infection. There is a full thickness ulceration dorsally along the midfoot medial to the incision site with healthy granular tissue and some hypergranular tissue. Ulceration continues improvement with reduction in size and granulating in well. Ulceration site demonstrates no signs of infection. Skin no rashes or lesions noted and skin turgor normal Neuro moves all extremities Debridement Note Debridement Note Wound debrided: Right foot Laterality: Right Wound Grade/Stage: Gonzalez stage III Type of Debridement: Excisional debridement Anesthesia Used: 5% Lidocaine Gel Depth: Down to and including healthy tissue and in the subcutaneous layer Percentage of wound debrided: 100 Instrument Used: 7mm curette, #15 blade and Forceps Tissue Removed: Fibrous, hypergranular, devitalized subcutaneous, biofilm, slough Severity: Fat Layer Exposed Amount of bleeding with debridement: Mild Bleeding Controlled with: Compression and gauze Patient tolerated procedure: Patient tolerated procedure well Post-Debridement Measurements and Additional Note: Post-Debridement Measurements/Treatment - Nurse 1 - General Ulcer Assessment Start: 04/24/24 09:59 Freq: Status: Active Protocol: RUKHSANA Activity Type Activity Date Activity User E-sign Co-sign Detail Recorded Client Recorded Date Recorded By Document 04/27/24 09:30 KW [id number] 04/27/24 09:41 KW 04/27/24 09:30 - Today's Visit Information Type of service Follow-up Visit (Physician/CENTER MANAGER ) Arrival Mode Ambulatory Patient Identification Verified (Name & Yes ) Vital Signs Temperature Source Temporal Pulse Rate (60-100) 83 Pulse Location Monitor Respiratory Rate (12-18) 18 Respiratory rate source Observation Oxygen Delivery Method Room Air Blood Pressure (90/60-120/80) 104/57 L Blood Pressure Mean (mm Hg) 72 Source Monitor Position Sitting Blood Pressure Location Left Arm History Since Last Visit- (Skip if this is Patient's initial visit) Have you changed medications since your No last visit? Any new allergies or adverse reactions No Had a fall/change in ADL's that may No increase risk of falls Signs or symptoms of abuse and/or No neglect since last visit Have you been in the hospital since your No last visit? Has dressing in place as prescribed Yes Has compression in place as prescribed Yes Has offloadiing in place as prescribed Yes Experienced any changes in pain level or No management Left Footwear Regular Shoe Right Footwear Removable Cast Walker/Walking Boot Pain Scale: 0-10 Numeric Is Patient Pain Free? Yes WC - Nurse 1 - General Ulcer Measurement Start: 04/24/24 09:59 Freq: Status: Active Protocol: Activity Type Activity Date Activity User E-sign Co-sign Detail Recorded Client Recorded Date Recorded By Document 04/27/24 09:30 KW [id number] 04/27/24 09:41 KW 04/27/24 09:30 Wound Center Nurse 1 #5 RDorsal/Anterior Ankle -Current Size (cm) - Length 3.3 -Current Size (cm) - Width 2.2 -Current Size (cm) - Depth 0 -Total Square Cm 7.26 -Date of Last Picture (Recall this 04/27/24 field) -Exudate Amt Medium -Exudate Type Serosanguineous -Wound Margin Distinct, Outline Attached -Granulation Amt Small (1-33%) -Granulation Quality Hyper- granulation, [place] -Necrosis Amt Large (67-100%) -Necrotic Tissue Type Adherent Slough -Texture (Marie-wound Skin Appearance) Assessed -Moisture (Marie-wound Skin Appearance) Assessed -Color (Marie-wound Skin Appearance) Assessed -Temperature (Marie-wound Skin No Abnormality Appearance) (Pt Warm) -Tenderness on Palpation (Marie-wound No Skin Appearance) -Ulcer Cleansing Soap and Water -Foul Odor after Cleansing No -Anesthetic Used 5% Lidocaine Gel WC - Nurse 2 - General Ulcer CM Notes Start: 04/24/24 09:59 Freq: Status: Active Protocol: Activity Type Activity Date Activity User E-sign Co-sign Detail Recorded Client Recorded Date Recorded By Document 04/27/24 13:05 [facility] [id number] 04/27/24 13:07 [facility]F 04/27/24 13:05 Wound Center Nurse 2 -Time 09:55 -Correct Patient Yes -Correct Side, Site, Position Yes -Correct Procedure Yes -Procedure Performed Yes -Type of Procedure Debridement -Clinical Debridement Subcutaneous -Tissue Removed Subcutaneous -Post Debridement (cm) - Length 3.4 -Post Debridement (cm) - Width 3 -Post Debridement (cm) - Depth 0.1 -Total Square (Post) (cm) 10.2 -Area of Debridement (cm) - Length 3.4 -Area of Debridement (cm) - Width 3 -Total Square (Area) (cm) 10.2 -Tunneling No -Undermining/Tunneling No -Circular Undermining No -Wound/Ulcer Outcome Not Healed -Ulcer Cleansing Rinsed/ Irrigated with Saline -Foul Odor after Cleansing No -Bioengineered Tissue Yes -Type of Bioengineered Tissue Epifix Mesh -Expiration Date 09/21/28 -Product Lot Number [id number] -Percent Used 100 -Lot number of Saline Used [id number] -Bleeding Controlled with Pressure,Silver Nitrate -Treatment Response Procedure Tolerated Well -Offloading Yes -Type of Offloading Camwalker -Debridement - Subq, 1st 20sq cm No -Apply Skin Sub - 1st 25 sq cm - Feet 1 -Epifix Mesh (per sq cm) 11 Pain Scale: 0-10 Numeric Is Patient Pain Free? Yes - Nurse 3 - General Ulcer D/C NN Start: 04/24/24 09:59 Freq: Status: Active Protocol: Activity Type Activity Date Activity User E-sign Co-sign Detail Recorded Client Recorded Date Recorded By Document 04/27/24 10:26 [id number] 04/27/24 10:32 KW 04/27/24 10:26 Wound Care Center Nurse 3 #5 RDorsal/Anterior Ankle -Primary Dressing Applied Aquacel Extra -Other Dressing atb ointment to prox part -Primary Dressing Covered/Secured with Dry Gauze & Roll Gauze, Secured with Tape -Aquacel Extra 1 Right -Compression Wrap Sebastian Wrap Pain Scale: 0-10 Numeric Is Patient Pain Free? Yes - Visit Discharge Discharge Condition Stable Ambulatory Status Ambulatory Transportation Private Auto Medication Reconcilliation completed & No provided to patient/care provider Clinical Summary of Care Provided Yes Assessment/Plan Assessment/Plan (1) 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: CODE(S): L97.512 - 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 (2) Type 2 diabetes mellitus with foot ulcer: CODE(S): E11.621 - Type 2 diabetes mellitus with foot ulcer; L97.509 - Non-pressure chronic ulcer of other part of unspecified foot with unspecified severity QUALIFIERS: Diabetes mellitus [facility] use: with [facility] use Qualified Code(s): E11.621 - Type 2 diabetes mellitus with foot ulcer; L97.509 - Non-pressure chronic ulcer of other part of unspecified foot with unspecified severity; 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 DOS 02/10/2024, POD #84 Cicatrix at incision sites medial foot and anterior leg with no signs of i nfection. Ulceration dorsal foot continues granulating in well versus her previous visit. She continues healing well at this time and has resumed HBO dives with temporary pause until next week due to needing tube placement. Ulceration predebridement measures 2.7 cm x 2.3 cm x 0.1 cm Ulceration did undergo debridement as noted on clinical panel above. Chemical cauterization was performed of the hypergranular tissue. Postdebridement measurements 2.7 cm x 2.4 cm x 0.1 cm. EpiFix #7 applied to the ulcerative bed and dressed with Adaptic touch and anchored with Steri-Strips. Dry sterile dressing applied to site with Tubigrip compression. She was instructed to not get the site wet and utilize cast bag when showering. She is understanding of this. She may change outer dressings as needed. She has been approved for EpiFix, will continue application. Has finished oral antibiotic doxycycline 100 mg twice daily and Augmentin 875mg daily. Will be permitted to continue protective weightbearing to the right lower extremity in CAM boot. Previously discussed medical clearance for HBO and she has been cleared by Dr. Howard. She will continue HBO dives as this is essential to her healing. She has had previous lab work drawn while in hospital 03/08/2024 [facility]. Did have chest x-ray during her hospital stay in January 2024 along with echocardiogram. Did undergo EKG for evaluation prior to dive. HgbA1c during hospital admission was 11.3% on 02/15/2024. Sugars have been well controlled following approval of insulin on new insurance. I do expect her A1c to continue to decrease. PICC removed 03/31/24. Following with ID. The following work up and care recommendations were made: Dressing: EpiFix, Adaptic touch, Steri-Strips, dry sterile dressing right foot Wash: Do not get wet Tissue growth optimization: EpiFix Offload: Nonweightbearing to the right lower extremity Vascular: DP and PT pulses palpable with adequate capillary fill time. Vascular status not impacting healing at this time. Edema: Edema well-controlled. Will continue with Tubigrip stocking application Infection: No signs of infection. Currently on IV antibiotics via PICC line. Will continue daptomycin and Unasyn per ID Pain: No pain to the ulcerative site secondary to diabetic peripheral polyneuropathy Host factors: DM type II with peripheral polyneuropathy, uncontrolled. Charcot foot right foot At this time prognosis is good and she continues healing well. Will continue HBO therapy as this is aiding in wound healing. I answered all the patient's questions. To return to the wound healing center in 1 week or call sooner if the patient has any questions or concerns.
[2024-05-04 09:46] VITALS: BP 110/68; PULSE 78; RESP 16
[2024-05-05 08:41] LABS: Bedside Glucose 135 mg/dL (74-106)
[2024-05-05 11:00] VITALS: BP 109/71; BP 113/61; PULSE 74; RESP 16; TEMP 35.9
[2024-05-05 11:00] LABS: Bedside Glucose 101 mg/dL (74-106)
--- NOTE | 2024-05-05 12:54 | PCM.HBO.PN ---
History of Present Illness Date of Service: 05/05/24 Chief Complaint: HBO for right diabetic foot ulcer History of Wound: Ms. Falk is a 58-year-old currently being seen here at the wound center who was referred for HBO consult. Currently being managed for diabetic foot ulcer, documented as Gonzalez stage III. Has had at least 30 days of conservative wound care. History of insulin-dependent diabetes mellitus. Recent A1c was about 11. She however states that her numbers have been much better lately. No concerns for significant hypoglycemic episodes. Prior session of hyperbaric oxygen therapy about 2 years ago which she tolerated well. Had a bout of vertigo which improved after vestibular sessions by ENT. No tobacco abuse. No history of heart or lung disease. No history of seizure disorder severe claustrophobia. Progress of Wound: Progress: Today's session represents the 13th treatment of a planned 30 sessions. Tolerance: Hyperbaric oxygen therapy was administered as per the facility's protocol. 100% oxygen at 2 KELLY for 90 minutes without air breaks. She tolerated hyperbaric oxygen therapy without any complaints or complications. Upon emergence from the chamber, her vitals remained stable and she was discharged in stable condition. Pre and post blood glucose readings as documented. Objective Data Objective Data Vital Signs: Vital Signs Temp Pulse Resp BP O2 Del Method 96.7 F L 74 16 109/71 Room Air 05/05/24 11:00 05/05/24 11:00 05/05/24 11:00 05/05/24 11:00 05/04/24 09:46 Oxygen Delivery Method Room Air Lab / Micro Data Labs: Laboratory Results - last 24 hr 05/05/24 08:22: POC Glucose 135 H 05/05/24 10:34: POC Glucose 101 Exam Physical Exam Const alert, oriented x3 and no apparent distress Psych mental status grossly normal, thought process normal, cooperative, affect normal and speech normal Nursing Assessment and Debridement Post-Debridement Measurements and Additional Note: Post-Debridement Measurements/Treatment ALISSA - Nurse 1 - General Ulcer Assessment Start: 04/24/24 09:59 Freq: Status: Active Protocol: RUKHSANA Activity Type Activity Date Activity User E-sign Co-sign Detail Recorded Client Recorded Date Recorded By Document 05/04/24 09:46 [id number] 05/04/24 10:14 05/04/24 09:46 - Today's Visit Information Type of service Follow-up Visit (Physician/DIRECTOR OF REVENUE CYCLE MANAGEMENT ) Arrival Mode Ambulatory Transfer Assistance None Patient Identification Verified (Name & Yes ) Patient Requires Transmission-Based No Precautions Vital Signs Pulse Rate (60-100) 78 Pulse Location Monitor Respiratory Rate (12-18) 16 Respiratory rate source Observation Oxygen Delivery Method Room Air Blood Pressure (90/60-120/80) 110/68 Blood Pressure Mean (mm Hg) 82 Source Monitor Position Sitting Blood Pressure Location Left Arm History Since Last Visit- (Skip if this is Patient's initial visit) Have you changed medications since your No last visit? Any new allergies or adverse reactions No Had a fall/change in ADL's that may No increase risk of falls Signs or symptoms of abuse and/or No neglect since last visit Have you been in the hospital since your No last visit? Has dressing in place as prescribed Yes Has compression in place as prescribed Yes Has offloadiing in place as prescribed Yes Experienced any changes in pain level or No management Left Footwear Regular Shoe Right Footwear Surgical Shoe with pressure relief insole Pain Scale: 0-10 Numeric Is Patient Pain Free? Yes WC - Nurse 1 - General Ulcer Measurement Start: 04/24/24 09:59 Freq: Status: Active Protocol: Activity Type Activity Date Activity User E-sign Co-sign Detail Recorded Client Recorded Date Recorded By Document 05/04/24 09:46 [id number] 05/04/24 10:14 GM 05/04/24 09:46 Wound Center Nurse 1 #5 RDorsal/Anterior Ankle -Current Size (cm) - Length 3.0 -Current Size (cm) - Width 1.8 -Current Size (cm) - Depth 0.1 -Total Square Cm 5.40 -Date of Last Picture (Recall this 05/04/24 field) -Photo Taken Yes -Epithelialization Small 1-33% -Tunneling No -Undermining/Tunneling No -Circular Undermining No -Exudate Amt Medium -Exudate Type Yellow/Green -Wound Margin Distinct, Outline Attached -Granulation Amt Medium (34-66%) -Granulation Quality Pale -Slough/Fibrin Yes -Necrosis Amt Small (1-33%) -Necrotic Tissue Type Adherent Slough -Moisture (Marie-wound Skin Appearance) Assessed -Color (Marie-wound Skin Appearance) Assessed -Temperature (Marie-wound Skin No Abnormality Appearance) (Pt Warm) -Tenderness on Palpation (Marie-wound No Skin Appearance) -Ulcer Cleansing Soap and Water -Foul Odor after Cleansing No -Anesthetic Used 5% Lidocaine Gel - Nurse 2 - General Ulcer CM Notes Start: 04/24/24 09:59 Freq: Status: Active Protocol: Activity Type Activity Date Activity User E-sign Co-sign Detail Recorded Client Recorded Date Recorded By Document 05/04/24 09:54 [facility] [id number] 05/04/24 10:11 [facility] 05/04/24 09:54 Wound Center Nurse 2 -Time 09:54 -Correct Patient Yes -Correct Side, Site, Position Yes -Correct Procedure Yes -Procedure Performed Yes -Type of Procedure Debridement -Clinical Debridement Subcutaneous -Tissue Removed Subcutaneous -Post Debridement (cm) - Length 2.8 -Post Debridement (cm) - Width 2.4 -Post Debridement (cm) - Depth 0.1 -Total Square (Post) (cm) 6.72 -Area of Debridement (cm) - Length 2.8 -Area of Debridement (cm) - Width 2.4 -Total Square (Area) (cm) 6.72 -Tunneling No -Undermining/Tunneling No -Circular Undermining No -Wound/Ulcer Outcome Not Healed -Ulcer Cleansing Rinsed/ Irrigated with Saline -Foul Odor after Cleansing No -Bioengineered Tissue No -Type of Bioengineered Tissue Epifix Mesh -Expiration Date 09/21/28 -Product Lot Number [id number] -Percent Used 100 -Lot number of Saline Used [id number] -Bleeding Controlled with Pressure,Silver Nitrate, Chemical Cauterization ( $) -Treatment Response Procedure Tolerated Well -Debridement - Subq, 1st 20sq cm No -Apply Skin Sub - 1st 25 sq cm - Feet 1 -Epifix Mesh (per sq cm) 11 Pain Scale: 0-10 Numeric Is Patient Pain Free? Yes WC - Nurse 3 - General Ulcer D/C NN Start: 04/24/24 09:59 Freq: Status: Active Protocol: Activity Type Activity Date Activity User E-sign Co-sign Detail Recorded Client Recorded Date Recorded By Document 05/04/24 10:21 DL [id number] 05/04/24 10:23 DL 05/04/24 10:21 Wound Care Center Nurse 3 #5 RDorsal/Anterior Ankle -Ulcer Cleansing Not Cleansed -Foul Odor after Cleansing No -Primary Dressing Applied Aquacel Extra -Other Dressing Epifix -Primary Dressing Covered/Secured with Dry Gauze & Roll Gauze, Secured with Tape -Other Covering verito -Aquacel Extra 1 Treatment Response Procedure Tolerated Well Pain Scale: 0-10 Numeric Is Patient Pain Free? Yes WC - Visit Discharge Discharge Condition Stable Ambulatory Status Ambulatory Transportation Private Auto Assessment/Plan Assessment/Plan (1) Type 2 diabetes mellitus with foot ulcer: CODE(S): E11.621 - Type 2 diabetes mellitus with foot ulcer; L97.509 - Non-pressure chronic ulcer of other part of unspecified foot with unspecified severity QUALIFIERS: Diabetes mellitus terminal computer operator insulin use: with usp use Qualified Code(s): E11.621 - Type 2 diabetes mellitus with foot ulcer; L97.509 - Non-pressure chronic ulcer of other part of unspecified foot with unspecified severity; 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 (2) 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: CODE(S): L97.512 - 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 (3) Type 2 diabetes mellitus with diabetic polyneuropathy: CODE(S): E11.42 - Type 2 diabetes mellitus with diabetic polyneuropathy QUALIFIERS: Diabetes mellitus terminal computer operator insulin use: with terminal computer operator use Qualified Code(s): E11.42 - Type 2 diabetes mellitus with diabetic polyneuropathy; 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 (4) Charcot's joint of right foot: CODE(S): M14.671 - Charcot's joint, right ankle and foot PLAN: Plan The patient appears to be tolerating hyperbaric oxygen therapy well, which will be continued as per their medical treatment plan.
[2024-05-08 08:40] LABS: Bedside Glucose 151 mg/dL (74-106)
[2024-05-08 09:08] VITALS: BP 111/73; BP 112/63; PULSE 59; PULSE 83; RESP 16; RESP 18; TEMP 36.1; TEMP 37
--- NOTE | 2024-05-08 10:26 | PCM.HBO.PN ---
History of Present Illness Date of Service: 05/08/24 Chief Complaint: HBO for right diabetic foot ulcer History of Wound: Ms. Falk is a 58-year-old currently being seen here at the wound center who was referred for HBO consult. Currently being managed for diabetic foot ulcer, documented as Gonzalez stage III. Has had at least 30 days of conservative wound care. History of insulin-dependent diabetes mellitus. Recent A1c was about 11. She however states that her numbers have been much better lately. No concerns for significant hypoglycemic episodes. Prior session of hyperbaric oxygen therapy about 2 years ago which she tolerated well. Had a bout of vertigo which improved after vestibular sessions by ENT. No tobacco abuse. No history of heart or lung disease. No history of seizure disorder severe claustrophobia. Progress of Wound: Progress: Today's session represents the 14th treatment of a planned 30 sessions. Tolerance: Hyperbaric oxygen therapy was administered as per the facility's protocol. 100% oxygen at 2 KELLY for 90 minutes without air breaks. She tolerated hyperbaric oxygen therapy without any complaints or complications. Upon emergence from the chamber, her vitals remained stable and she was discharged in stable condition. Pre and post blood glucose readings as documented. Objective Data Objective Data Vital Signs: Vital Signs Temp Pulse Resp BP O2 Del Method 98.6 F 83 18 111/73 Room Air 05/08/24 09:08 05/08/24 09:08 05/08/24 09:08 05/08/24 09:08 05/04/24 09:46 Oxygen Delivery Method Room Air Lab / Micro Data Labs: Laboratory Results - last 24 hr 05/08/24 08:15: POC Glucose 151 H Exam Physical Exam Const alert and oriented x3 General Appearance: cooperative HEENT normocephalic HEENT Narrative: Bilateral Tympanostomy tubes in place. Eyes General Eye: normal appearance of both eyes Resp normal respiratory effort, no use of accessory muscles and clear to auscultation bilaterally Effort and Inspection: able to speak in complete sentences Cardio regular rate and regular rhythm Palpation: normal PMI Psych affect normal Charges/Coding Wound Center CF Procedures HBO Supervision: [id number] Hyperbaric Oxygen; supervision Assessment/Plan Assessment/Plan (1) Type 2 diabetes mellitus with foot ulcer: CODE(S): E11.621 - Type 2 diabetes mellitus with foot ulcer; L97.509 - Non-pressure chronic ulcer of other part of unspecified foot with unspecified severity QUALIFIERS: Diabetes mellitus superintendent container terminal insulin use: with superintendent container terminal use Qualified Code(s): E11.621 - Type 2 diabetes mellitus with foot ulcer; L97.509 - Non-pressure chronic ulcer of other part of unspecified foot with unspecified severity; Z79.4 - USP (current) use of insulin (2) 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: CODE(S): L97.512 - 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 (3) Type 2 diabetes mellitus with diabetic polyneuropathy: CODE(S): E11.42 - Type 2 diabetes mellitus with diabetic polyneuropathy QUALIFIERS: Diabetes mellitus mcfp insulin use: with mcfp use Qualified Code(s): E11.42 - Type 2 diabetes mellitus with diabetic polyneuropathy; Z79.4 - superintendent container terminal (current) use of insulin (4) Charcot's joint of right foot: CODE(S): M14.671 - Charcot's joint, right ankle and foot PLAN: Plan The patient appears to be tolerating hyperbaric oxygen therapy well, which will be continued as per their medical treatment plan.
[2024-05-08 11:49] LABS: Bedside Glucose 132 mg/dL (74-106)
[2024-05-09 08:39] LABS: Bedside Glucose 157 mg/dL (74-106)
--- NOTE | 2024-05-09 09:19 | PCM.HBO.PN ---
History of Present Illness Date of Service: 05/09/24 Chief Complaint: HBO for right diabetic foot ulcer History of Wound: Ms. Falk is a 58-year-old currently being seen here at the wound center who was referred for HBO consult. Currently being managed for diabetic foot ulcer, documented as Gonzalez stage III. Has had at least 30 days of conservative wound care. History of insulin-dependent diabetes mellitus. Recent A1c was about 11. She however states that her numbers have been much better lately. No concerns for significant hypoglycemic episodes. Prior session of hyperbaric oxygen therapy about 2 years ago which she tolerated well. Had a bout of vertigo which improved after vestibular sessions by ENT. No tobacco abuse. No history of heart or lung disease. No history of seizure disorder severe claustrophobia. Progress of Wound: Progress: Today's session represents the 15th treatment of a planned 30 sessions. Tolerance: Hyperbaric oxygen therapy was administered as per the facility's protocol. 100% oxygen at 2 KELLY for 90 minutes without air breaks. She tolerated hyperbaric oxygen therapy without any complaints or complications. Upon emergence from the chamber, her vitals remained stable and she was discharged in stable condition. Pre and post blood glucose readings as documented. Objective Data Objective Data Vital Signs: Vital Signs Temp Pulse Resp BP O2 Del Method 98.6 F 83 18 111/73 Room Air 05/08/24 09:08 05/08/24 09:08 05/08/24 09:08 05/08/24 09:08 05/04/24 09:46 Oxygen Delivery Method Room Air Lab / Micro Data Labs: Laboratory Results - last 24 hr 05/08/24 10:26: POC Glucose 132 H 05/09/24 08:21: POC Glucose 157 H Exam Physical Exam Const alert and oriented x3 General Appearance: cooperative HEENT normocephalic HEENT Narrative: Bilateral Tympanostomy tubes in place. Eyes General Eye: normal appearance of both eyes Resp normal respiratory effort, no use of accessory muscles and clear to auscultation bilaterally Effort and Inspection: able to speak in complete sentences Cardio regular rate and regular rhythm Palpation: normal PMI Psych affect normal Charges/Coding Wound Center CF Procedures HBO Supervision: [id number] Hyperbaric Oxygen; supervision Assessment/Plan Assessment/Plan (1) Type 2 diabetes mellitus with foot ulcer: CODE(S): E11.621 - Type 2 diabetes mellitus with foot ulcer; L97.509 - Non-pressure chronic ulcer of other part of unspecified foot with unspecified severity QUALIFIERS: Diabetes mellitus intermediate project manager insulin use: with mcfp use Qualified Code(s): E11.621 - Type 2 diabetes mellitus with foot ulcer; L97.509 - Non-pressure chronic ulcer of other part of unspecified foot with unspecified severity; Z79.4 - terminal block assembler (current) use of insulin (2) 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: CODE(S): L97.512 - 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 (3) Type 2 diabetes mellitus with diabetic polyneuropathy: CODE(S): E11.42 - Type 2 diabetes mellitus with diabetic polyneuropathy QUALIFIERS: Diabetes mellitus intermediate project manager insulin use: with intermediate project manager use Qualified Code(s): E11.42 - Type 2 diabetes mellitus with diabetic polyneuropathy; Z79.4 - terminal block assembler (current) use of insulin (4) Charcot's joint of right foot: CODE(S): M14.671 - Charcot's joint, right ankle and foot PLAN: Plan The patient appears to be tolerating hyperbaric oxygen therapy well, which will be continued as per their medical treatment plan.
[2024-05-09 10:46] LABS: Bedside Glucose 140 mg/dL (74-106)
[2024-05-09 10:51] VITALS: BP 119/68; BP 126/69; PULSE 69; PULSE 74; RESP 15; RESP 16; TEMP 36.6; TEMP 36.8
--- NOTE | 2024-05-09 11:34 | WC ---
PHOTO 05/04/24 RIGHT FOOT
[2024-05-10 08:38] LABS: Bedside Glucose 180 mg/dL (74-106)
[2024-05-10 10:40] LABS: Bedside Glucose 113 mg/dL (74-106)
[2024-05-10 12:03] VITALS: BP 111/68; BP 137/63; PULSE 66; PULSE 90; RESP 17; TEMP 36.2
--- NOTE | 2024-05-10 13:15 | HBO.PN.PCM_ITS ---
History of Present Illness Date of Service: 05/10/24 Chief Complaint: HBO for right diabetic foot ulcer History of Wound: Ms. Falk is a 58-year-old currently being seen here at the wound center who was referred for HBO consult. Currently being managed for diabetic foot ulcer, documented as Gonzalez stage III. Has had at least 30 days of conservative wound care. History of insulin-dependent diabetes mellitus. Recent A1c was about 11. She however states that her numbers have been much better lately. No concerns for significant hypoglycemic episodes. Prior session of hyperbaric oxygen therapy about 2 years ago which she tolerated well. Had a bout of vertigo which improved after vestibular sessions by ENT. No tobacco abuse. No history of heart or lung disease. No history of seizure disorder severe claustrophobia. Progress of Wound: Progress: Today's session represents the 16th treatment of a planned 30 sessions. Tolerance: Hyperbaric oxygen therapy was administered as per the facility's protocol. 100% oxygen at 2 KELLY for 90 minutes without air breaks. She tolerated hyperbaric oxygen therapy without any complaints or complications. Upon emergence from the chamber, her vitals remained stable and she was discharged in stable condition. Pre and post blood glucose readings as documented. Objective Data Objective Data Vital Signs: Vital Signs Temp Pulse Resp BP O2 Del Method 97.2 F L 90 17 137/63 H Room Air 05/10/24 12:03 05/10/24 12:03 05/10/24 12:03 05/10/24 12:03 05/04/24 09:46 Oxygen Delivery Method Room Air Lab / Micro Data Labs: Laboratory Results - last 24 hr 05/10/24 08:20: POC Glucose 180 H 05/10/24 10:23: POC Glucose 113 H Exam Physical Exam Const alert and oriented x3 General Appearance: cooperative HEENT normocephalic HEENT Narrative: Bilateral Tympanostomy tubes in place. Eyes General Eye: normal appearance of both eyes Resp normal respiratory effort, no use of accessory muscles and clear to auscultation bilaterally Effort and Inspection: able to speak in complete sentences Cardio regular rate and regular rhythm Palpation: normal PMI Psych affect normal Charges/Coding Wound Center CF Procedures HBO Supervision: [id number] Hyperbaric Oxygen; supervision Assessment/Plan Assessment/Plan (1) Type 2 diabetes mellitus with foot ulcer: CODE(S): E11.621 - Type 2 diabetes mellitus with foot ulcer; L97.509 - Non-pressure chronic ulcer of other part of unspecified foot with unspecified severity QUALIFIERS: Diabetes mellitus long-term insulin use: with customer care professional use Qualified Code(s): E11.621 - Type 2 diabetes mellitus with foot ulcer; L97.509 - Non-pressure chronic ulcer of other part of unspecified foot with unspecified severity; Z79.4 - custodial (current) use of insulin (2) Non-pressure chronic 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: CODE(S): L97.512 - Non-pressure chronic 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 (3) Type 2 diabetes mellitus with diabetic polyneuropathy: CODE(S): E11.42 - Type 2 diabetes mellitus with diabetic polyneuropathy QUALIFIERS: Diabetes mellitus customer care professional insulin use: with long-term use Qualified Code(s): E11.42 - Type 2 diabetes mellitus with diabetic polyneuropathy; Z79.4 - business analytics director (current) use of insulin (4) Charcot's joint of right foot: CODE(S): M14.671 - Charcot's joint, right ankle and foot PLAN: Plan The patient appears to be tolerating hyperbaric oxygen therapy well, which will be continued as per their medical treatment plan.
[2024-05-11 08:42] LABS: Bedside Glucose 173 mg/dL (74-106)
--- NOTE | 2024-05-11 08:56 | HBO.PN.PCM_ITS ---
History of Present Illness Date of Service: 05/11/24 Chief Complaint: HBO for right diabetic foot ulcer History of Wound: Ms. Falk is a 58-year-old currently being seen here at the wound center who was referred for HBO consult. Currently being managed for diabetic foot ulcer, documented as Gonzalez stage III. Has had at least 30 days of conservative wound care. History of insulin-dependent diabetes mellitus. Recent A1c was about 11. She however states that her numbers have been much better lately. No concerns for significant hypoglycemic episodes. Prior session of hyperbaric oxygen therapy about 2 years ago which she tolerated well. Had a bout of vertigo which improved after vestibular sessions by ENT. No tobacco abuse. No history of heart or lung disease. No history of seizure disorder severe claustrophobia. Progress of Wound: Progress: Today's session represents the 17th treatment of a planned 30 sessions. Tolerance: Hyperbaric oxygen therapy was administered as per the facility's protocol. 100% oxygen at 2 KELLY for 90 minutes without air breaks. She tolerated hyperbaric oxygen therapy without any complaints or complications. Upon emergence from the chamber, her vitals remained stable and she was discharged in stable condition. Pre and post blood glucose readings as documented. Objective Data Objective Data Vital Signs: Vital Signs Temp Pulse Resp BP O2 Del Method 97.2 F L 90 17 137/63 H Room Air 05/10/24 12:03 05/10/24 12:03 05/10/24 12:03 05/10/24 12:03 05/04/24 09:46 Oxygen Delivery Method Room Air Lab / Micro Data Labs: Laboratory Results - last 24 hr 05/10/24 10:23: POC Glucose 113 H 05/11/24 08:23: POC Glucose 173 H Exam Physical Exam Const alert and oriented x3 General Appearance: cooperative HEENT normocephalic HEENT Narrative: Bilateral Tympanostomy tubes in place. Eyes General Eye: normal appearance of both eyes Resp normal respiratory effort, no use of accessory muscles and clear to auscultation bilaterally Effort and Inspection: able to speak in complete sentences Cardio regular rate and regular rhythm Palpation: normal PMI Psych affect normal Charges/Coding Wound Center CF Procedures HBO Supervision: [id number] Hyperbaric Oxygen; supervision Assessment/Plan Assessment/Plan (1) Type 2 diabetes mellitus with foot ulcer: CODE(S): E11.621 - Type 2 diabetes mellitus with foot ulcer; L97.509 - Non-pressure chronic ulcer of other part of unspecified foot with unspecified severity QUALIFIERS: Diabetes mellitus prison insulin use: with buttermaker use Qualified Code(s): E11.621 - Type 2 diabetes mellitus with foot ulcer; L97.509 - Non-pressure chronic ulcer of other part of unspecified foot with unspecified severity; Z79.4 - penitentiary (current) use of insulin (2) Non-pressure chronic ulcer of other part of right foot with fat layer exposed: CODE(S): L97.512 - Non-pressure chronic ulcer of other part of right foot with fat layer exposed (3) Type 2 diabetes mellitus with diabetic polyneuropathy: CODE(S): E11.42 - Type 2 diabetes mellitus with diabetic polyneuropathy QUALIFIERS: Diabetes mellitus buttermaker insulin use: with prison use Qualified Code(s): E11.42 - Type 2 diabetes mellitus with diabetic polyneuropathy; Z79.4 - terminal press operator (current) use of insulin (4) Charcot's joint of right foot: CODE(S): M14.671 - Charcot's joint, right ankle and foot PLAN: Plan The patient appears to be tolerating hyperbaric oxygen therapy well, which will be continued as per their medical treatment plan.
[2024-05-11 09:48] VITALS: BP 117/79; BP 121/65; PULSE 66; PULSE 79; RESP 16; TEMP 36; TEMP 36.1
[2024-05-11 10:46] LABS: Bedside Glucose 127 mg/dL (74-106)
[2024-05-11 10:49] VITALS: BP 117/79; PULSE 76; RESP 16; TEMP 36.1
--- NOTE | 2024-05-11 11:15 | PN.PCM_ITS ---
History of Present Illness Date of Service: 05/11/24 Chief Complaint: HBO for right diabetic foot ulcer History of Wound: Ms. Falk is a 58-year-old currently being seen here at the wound center who was referred for HBO consult. Currently being managed for diabetic foot ulcer, documented as Gonzalez stage III. Has had at least 30 days of conservative wound care. History of insulin-dependent diabetes mellitus. Recent A1c was about 11. She however states that her numbers have been much better lately. No concerns for significant hypoglycemic episodes. Prior session of hyperbaric oxygen therapy about 2 years ago which she tolerated well. Had a bout of vertigo which improved after vestibular sessions by ENT. No tobacco abuse. No history of heart or lung disease. No history of seizure disorder severe claustrophobia. Progress of Wound: Progress: Today's session represents the 17 th treatment of a planned 30 sessions. Tolerance: Hyperbaric oxygen therapy was administered as per the facility's protocol. 100% oxygen at 2 KELLY for 90 minutes without air breaks. She tolerated hyperbaric oxygen therapy without any complaints or complications. Upon emergence from the chamber, her vitals remained stable and she was discharged in stable condition. Pre and post blood glucose readings as documented. Subjective Subjective This is a 58-year-old female who continues to follow with the wound care center for right dorsal foot ulceration. She had previously undergone I&D on 02/10/2024 of the right foot. Continues to heal well and is changing outer dressing as needed leaving graft in place to Right foot. She is continuing to take oral antibiotic as instructed. HBO dives resumed following tube placement in ears. Ulcer site continues improvement. Denies constitutional symptoms. Denies further complaints. Objective Data Objective Data Vital Signs: Vital Signs Temp Pulse Resp BP O2 Del Method 97 F L 76 16 117/79 Room Air 05/11/24 10:49 05/11/24 10:49 05/11/24 10:49 05/11/24 10:49 05/04/24 09:46 Oxygen Delivery Method Room Air Lab / Micro Data Labs: Laboratory Results - last 24 hr 05/11/24 08:23: POC Glucose 173 H 05/11/24 10:28: POC Glucose 127 H Physical Exam Const alert, oriented x3 and no apparent distress General Appearance: cooperative HEENT normocephalic Eyes General Eye: normal appearance of both eyes Neck General: normal visual inspection Lymph Lymphatic: no lymphadenopathy noted and no lymphedema noted Resp normal respiratory effort Cardio regular rate and regular rhythm Extremity Extremity Narrative: Right lower extremity: Vascular: DP and PT pulses palpable with adequate capillary fill time to the digits. Normal temperature gradient. Hair growth is absent to the digits. Neurologic: Gross sensation intact. Absent protective sensation consistent with diabetic peripheral polyneuropathy Musculoskeletal: No pain to palpation about the ulcerative site secondary to diabetic peripheral polyneuropathy. There is a Charcot foot deformity noted of the right foot. No pain to palpation about the ulcerative site. Dermatologic: Incision site medial foot healed with cicatrix. No signs of infection. Incision site anterior leg with cicatrix proximally and distally. No signs of infection. There is a full thickness ulceration dorsally along the midfoot medial to the incision site with healthy granular tissue and some hypergranular tissue. Ulceration continues improvement with reduction in size. Ulceration site demonstrates no signs of infection. Skin no rashes or lesions noted and skin turgor normal Neuro moves all extremities Debridement Note Debridement Note Wound debrided: Right foot Laterality: Right Wound Grade/Stage: Gonzalez stage III Type of Debridement: Excisional debridement Anesthesia Used: 5% Lidocaine Gel Depth: Down to and including healthy tissue and in the subcutaneous layer Percentage of wound debrided: 100 Instrument Used: 7mm curette Tissue Removed: Fibrous, devitalized subcutaneous, biofilm, slough Severity: Fat Layer Exposed Amount of bleeding with debridement: Mild Bleeding Controlled with: Compression and gauze Patient tolerated procedure: Patient tolerated procedure well Post-Debridement Measurements and Additional Note: Post-Debridement Measurements/Treatment - Nurse 1 - General Ulcer Assessment Start: 04/24/24 09:59 Freq: Status: Active Protocol: RUKHSANA Activity Type Activity Date Activity User E-sign Co-sign Detail Recorded Client Recorded Date Recorded By Document 04/27/24 09:30 KW [id number] 04/27/24 09:41 KW Document 05/04/24 09:46 GM [id number] 05/04/24 10:14 GM Document 05/11/24 10:49 DL [id number] 05/11/24 10:58 DL 04/27/24 05/04/24 05/11/24 09:30 09:46 10:49 - Today's Visit Information Type of service Follow-up Visit Follow-up Visit Follow-up Visit (Physician/DIRECTOR OF AUDIOLOGY (Physician/DIRECTOR OF AUDIOLOGY (Physician/DIRECTOR OF AUDIOLOGY ) ) ) Arrival Mode Ambulatory Ambulatory Ambulatory Transfer Assistance None Transfer Board Patient Identification Verified (Name & Yes Yes Yes ) Patient Requires Transmission-Based No No Precautions Finger Stick Blood Sugar(mg/dl) (if 173 indicated): Blood Sugar Done During this Visit Vital Signs Temperature (97.8 F-99.1 F) 97 F L Temperature Source Temporal Temporal Pulse Rate (60-100) 83 78 76 Pulse Location Monitor Monitor Monitor Respiratory Rate (12-18) 18 16 16 Respiratory rate source Observation Observation Observation Oxygen Delivery Method Room Air Room Air Blood Pressure (90/60-120/80) 104/57 L 110/68 117/79 Blood Pressure Mean (mm Hg) 72 82 91 Source Monitor Monitor Monitor Position Sitting Sitting Blood Pressure Location Left Arm Left Arm History Since Last Visit- (Skip if this is Patient's initial visit) Have you changed medications since your No No No last visit? Any new allergies or adverse reactions No No No Had a fall/change in ADL's that may No No No increase risk of falls Signs or symptoms of abuse and/or No No No neglect since last visit Have you been in the hospital since your No No No last visit? Has dressing in place as prescribed Yes Yes Yes Has compression in place as prescribed Yes Yes Yes Has offloadiing in place as prescribed Yes Yes Yes Experienced any changes in pain level or No No No management Left Footwear Regular Shoe Regular Shoe Right Footwear Removable Cast Surgical Shoe Surgical Shoe Walker/Walking with pressure with pressure Boot relief insole relief insole Pain Scale: 0-10 Numeric Is Patient Pain Free? Yes Yes Yes WC - Nurse 1 - General Ulcer Measurement Start: 04/24/24 09:59 Freq: Status: Active Protocol: Activity Type Activity Date Activity User E-sign Co-sign Detail Recorded Client Recorded Date Recorded By Document 04/27/24 09:30 KW [id number] 04/27/24 09:41 KW Document 05/04/24 09:46 GM [id number] 05/04/24 10:14 GM Document 05/11/24 10:49 DL [id number] 05/11/24 10:58 DL 04/27/24 05/04/24 05/11/24 09:30 09:46 10:49 Wound Center Nurse 1 #5 RDorsal/Anterior Ankle -Current Size (cm) - Length 3.3 3.0 6.8 -Current Size (cm) - Width 2.2 1.8 1.9 -Current Size (cm) - Depth 0 0.1 0.1 -Total Square Cm 7.26 5.40 12.92 -Date of Last Picture (Recall this 04/27/24 05/04/24 field) -Photo Taken Yes Yes -Epithelialization Small 1-33% -Tunneling No -Undermining/Tunneling No -Circular Undermining No -Exudate Amt Medium Medium Medium -Exudate Type Serosanguineous Yellow/Green Serosanguineous -Wound Margin Distinct, Distinct, Distinct, Outline Outline Outline Attached Attached Attached -Granulation Amt Small (1-33%) Medium (34-66%) Small (1-33%) -Granulation Quality Hyper- Pale granulation, [place] -Slough/Fibrin Yes -Necrosis Amt Large (67-100%) Small (1-33%) Large (67-100%) -Necrotic Tissue Type Adherent Slough Adherent Slough Adherent Slough -Structure Exposed N/A -Texture (Marie-wound Skin Appearance) Assessed Scarring -Moisture (Marie-wound Skin Appearance) Assessed Assessed Dry/Scaly -Color (Marie-wound Skin Appearance) Assessed Assessed No Abnormality -Temperature (Marie-wound Skin No Abnormality No Abnormality No Abnormality Appearance) (Pt Warm) (Pt Warm) (Pt Warm) -Tenderness on Palpation (Marie-wound No No No Skin Appearance) -Ulcer Cleansing Soap and Water Soap and Water Soap and Water -Foul Odor after Cleansing No No No -Anesthetic Used 5% Lidocaine 5% Lidocaine 5% Lidocaine Gel Gel Gel WC - Nurse 2 - General Ulcer CM Notes Start: 04/24/24 09:59 Freq: Status: Active Protocol: Activity Type Activity Date Activity User E-sign Co-sign Detail Recorded Client Recorded Date Recorded By Document 04/27/24 13:05 BM [id number] 04/27/24 13:07 BMF Document 05/04/24 09:54 BMF [id number] 05/04/24 10:11 BMF Edit Result 05/04/24 09:54 BMF (1) [id number] 05/04/24 11:34 BMF (1) #5 RDorsal/Anterior Ankle - Bleeding Controlled with Pressure,Silver => Pressure,Silver Nitrate => Nitrate,Chemical => Cauterization ($) 04/27/24 05/04/24 13:05 09:54 Wound Center Nurse 2 #5 RDorsal/Anterior Ankle -Time 09:55 09:54 -Correct Patient Yes Yes -Correct Side, Site, Position Yes Yes -Correct Procedure Yes Yes -Procedure Performed Yes Yes -Type of Procedure Debridement Debridement -Clinical Debridement Subcutaneous Subcutaneous -Tissue Removed Subcutaneous Subcutaneous -Post Debridement (cm) - Length 3.4 2.8 -Post Debridement (cm) - Width 3 2.4 -Post Debridement (cm) - Depth 0.1 0.1 -Total Square (Post) (cm) 10.2 6.72 -Area of Debridement (cm) - Length 3.4 2.8 -Area of Debridement (cm) - Width 3 2.4 -Total Square (Area) (cm) 10.2 6.72 -Tunneling No No -Undermining/Tunneling No No -Circular Undermining No No -Wound/Ulcer Outcome Not Healed Not Healed -Ulcer Cleansing Rinsed/ Rinsed/ Irrigated with Irrigated with Saline Saline -Foul Odor after Cleansing No No -Bioengineered Tissue Yes No -Type of Bioengineered Tissue Epifix Mesh Epifix Mesh -Expiration Date 09/21/28 09/21/28 -Product Lot Number [id number] -Percent Used 100 100 -Lot number of Saline Used [id number] -Bleeding Controlled with Pressure,Silver Pressure,Silver Nitrate Nitrate, Chemical Cauterization ( $) -Treatment Response Procedure Procedure Tolerated Well Tolerated Well -Offloading Yes -Type of Offloading Camwalker -Debridement - Subq, 1st 20sq cm No No -Apply Skin Sub - 1st 25 sq cm - Feet 1 1 -Epifix Mesh (per sq cm) 11 11 Pain Scale: 0-10 Numeric Is Patient Pain Free? Yes Yes - Nurse 3 - General Ulcer D/C NN Start: 04/24/24 09:59 Freq: Status: Active Protocol: Activity Type Activity Date Activity User E-sign Co-sign Detail Recorded Client Recorded Date Recorded By Document 04/27/24 10:26 KW [id number] 04/27/24 10:32 KW Document 05/04/24 10:21 DL [id number] 05/04/24 10:23 DL 04/27/24 05/04/24 10:26 10:21 Wound Care Center Nurse 3 #5 RDorsal/Anterior Ankle -Ulcer Cleansing Not Cleansed -Foul Odor after Cleansing No -Primary Dressing Applied Aquacel Extra Aquacel Extra -Other Dressing atb ointment to Epifix prox part -Primary Dressing Covered/Secured with Dry Gauze & Dry Gauze & Roll Gauze, Roll Gauze, Secured with Secured with Tape Tape -Other Covering sebastian -Aquacel Extra 1 1 Right -Compression Wrap Sebastian Wrap Treatment Response Procedure Tolerated Well Pain Scale: 0-10 Numeric Is Patient Pain Free? Yes Yes WC - Visit Discharge Discharge Condition Stable Stable Ambulatory Status Ambulatory Ambulatory Transportation Private Auto Private Auto Medication Reconcilliation completed & No provided to patient/care provider Clinical Summary of Care Provided Yes Assessment/Plan Assessment/Plan (1) Non-pressure chronic ulcer of other part of right foot with fat layer exposed: CODE(S): L97.512 - Non-pressure chronic ulcer of other part of right foot with fat layer exposed (2) Type 2 diabetes mellitus with foot ulcer: CODE(S): E11.621 - Type 2 diabetes mellitus with foot ulcer; L97.509 - Non-pressure chronic ulcer of other part of unspecified foot with unspecified severity QUALIFIERS: Diabetes mellitus longterm insulin use: with watermelon inspector use Qualified Code(s): E11.621 - Type 2 diabetes mellitus with foot ulcer; L97.509 - Non-pressure chronic ulcer of other part of unspecified foot with unspecified severity; Z79.4 - skilled nursing (current) use of insulin (3) Charcot's joint of right foot: CODE(S): M14.671 - Charcot's joint, right ankle and foot (4) Type 2 diabetes mellitus with diabetic polyneuropathy: CODE(S): E11.42 - Type 2 diabetes mellitus with diabetic polyneuropathy QUALIFIERS: Diabetes mellitus watermelon inspector insulin use: with longterm use Qualified Code(s): E11.42 - Type 2 diabetes mellitus with diabetic polyneuropathy; Z79.4 - termite control service representative (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 DOS 02/10/2024, POD #91 Cicatrix at incision sites medial foot and anterior leg with no signs of infection. Ulceration dorsal foot continues granulating in well versus her previous visit. She continues healing well at this time and has resumed HBO dives with temporary pause until next week due to needing tube placement. Ulceration predebridement measures 2.9 cm x 2.0 cm x 0.1 cm Ulceration did undergo debridement as noted on clinical panel above. Chemical cauterization was performed of the hypergranular tissue. Postdebridement measurements 3.0 cm x 2.1 cm x 0.1 cm. EpiFix #8 applied to the ulcerative bed and dressed with Adaptic touch and anchored with Steri-Strips. Dry sterile dressing applied to site with Tubigrip compression. She was instructed to not get the site wet and utilize cast bag when showering. She is understanding of this. She may change outer dressings as needed. Ulceration continues reduction in size. She has been approved for EpiFix, will continue application. Has finished oral antibiotic doxycycline 100 mg twice daily and Augmentin 875mg daily. Will be permitted to continue protective weightbearing to the right lower extremity in CAM boot. Previously discussed medical clearance for HBO and she has been cleared by Dr. Howard. She will continue HBO dives as this is essential to her healing. She has had previous lab work drawn while in hospital 03/08/2024 [facility]. Did have chest x-ray during her hospital stay in January 2024 along with echocardiogram. Did undergo EKG for evaluation prior to dive. HgbA1c during hospital admission was 11.3% on 02/15/2024. Sugars have been well controlled following approval of insulin on new insurance. I do expect her A1c to continue to decrease. PICC removed 03/31/24. Following with ID. The following work up and care recommendations were made: Dressing: EpiFix, Adaptic touch, Steri-Strips, dry sterile dressing right foot Wash: Do not get wet Tissue growth optimization: EpiFix Offload: Nonweightbearing to the right lower extremity Vascular: DP and PT pulses palpable with adequate capillary fill time. Vascular status not impacting healing at this time. Edema: Edema well-controlled. Will continue with Tubigrip stocking application Infection: No signs of infection. Currently on IV antibiotics via PICC line. Will continue daptomycin and Unasyn per ID Pain: No pain to the ulcerative site secondary to diabetic peripheral polyneuropathy Host factors: DM type II with peripheral polyneuropathy, uncontrolled. Charcot foot right foot At this time prognosis is good and she continues healing well. Will continue HBO therapy as this is aiding in wound healing. I answered all the patient's questions. To return to the wound healing center in 2 weeks or call sooner if the patient has any questions or concerns.
[2024-05-12 08:34] LABS: Bedside Glucose 168 mg/dL (74-106)
[2024-05-12 10:28] VITALS: BP 122/71; BP 124/70; PULSE 65; PULSE 80; RESP 15; RESP 17; TEMP 36.1; TEMP 36.2
[2024-05-12 11:03] LABS: Bedside Glucose 123 mg/dL (74-106)
--- NOTE | 2024-05-12 13:14 | PCM.HBO.PN ---
History of Present Illness Date of Service: 05/12/24 Chief Complaint: HBO for right diabetic foot ulcer History of Wound: Ms. Falk is a 58-year-old currently being seen here at the wound center who was referred for HBO consult. Currently being managed for diabetic foot ulcer, documented as Gonzalez stage III. Has had at least 30 days of conservative wound care. History of insulin-dependent diabetes mellitus. Recent A1c was about 11. She however states that her numbers have been much better lately. No concerns for significant hypoglycemic episodes. Prior session of hyperbaric oxygen therapy about 2 years ago which she tolerated well. Had a bout of vertigo which improved after vestibular sessions by ENT. No tobacco abuse. No history of heart or lung disease. No history of seizure disorder severe claustrophobia. Progress of Wound: Progress: Today's session represents the 18th treatment of a planned 30 sessions. Tolerance: Hyperbaric oxygen therapy was administered as per the facility's protocol. 100% oxygen at 2 KELLY for 90 minutes without air breaks. She tolerated hyperbaric oxygen therapy without any complaints or complications. Upon emergence from the chamber, her vitals remained stable and she was discharged in stable condition. Pre and post blood glucose readings as documented. Objective Data Objective Data Vital Signs: Vital Signs Temp Pulse Resp BP O2 Del Method 96.9 F L 80 15 122/71 H Room Air 05/12/24 10:28 05/12/24 10:28 05/12/24 10:28 05/12/24 10:28 05/04/24 09:46 Oxygen Delivery Method Room Air Lab / Micro Data Labs: Laboratory Results - last 24 hr 05/12/24 08:16: POC Glucose 168 H 05/12/24 10:46: POC Glucose 123 H Exam Physical Exam Const alert, oriented x3 and no apparent distress HEENT HEENT Narrative: tympanostomy tubes present bilaterally and patent Psych mental status grossly normal, thought process normal, cooperative, affect normal and speech normal Nursing Assessment and Debridement Post-Debridement Measurements and Additional Note: Post-Debridement Measurements/Treatment WC - Nurse 1 - General Ulcer Assessment Start: 04/24/24 09:59 Freq: Status: Active Protocol: RUKHSANA Activity Type Activity Date Activity User E-sign Co-sign Detail Recorded Client Recorded Date Recorded By Document 05/11/24 10:49 DL [id number] 05/11/24 10:58 DL 05/11/24 10:49 - Today's Visit Information Type of service Follow-up Visit (Physician/SNUFF BOX FINISHER ) Arrival Mode Ambulatory Transfer Assistance Transfer Board Patient Identification Verified (Name & Yes ) Patient Requires Transmission-Based No Precautions Finger Stick Blood Sugar(mg/dl) (if 173 indicated): Blood Sugar Done During this Visit Vital Signs Temperature (97.8 F-99.1 F) 97 F L Temperature Source Temporal Pulse Rate (60-100) 76 Pulse Location Monitor Respiratory Rate (12-18) 16 Respiratory rate source Observation Blood Pressure (90/60-120/80) 117/79 Blood Pressure Mean (mm Hg) 91 Source Monitor History Since Last Visit- (Skip if this is Patient's initial visit) Have you changed medications since your No last visit? Any new allergies or adverse reactions No Had a fall/change in ADL's that may No increase risk of falls Signs or symptoms of abuse and/or No neglect since last visit Have you been in the hospital since your No last visit? Has dressing in place as prescribed Yes Has compression in place as prescribed Yes Has offloadiing in place as prescribed Yes Experienced any changes in pain level or No management Right Footwear Surgical Shoe with pressure relief insole Pain Scale: 0-10 Numeric Is Patient Pain Free? Yes - Nurse 1 - General Ulcer Measurement Start: 04/24/24 09:59 Freq: Status: Active Protocol: Activity Type Activity Date Activity User E-sign Co-sign Detail Recorded Client Recorded Date Recorded By Document 05/11/24 10:49 DL [id number] 05/11/24 10:58 DL 05/11/24 10:49 Wound Center Nurse 1 #5 RDorsal/Anterior Ankle -Current Size (cm) - Length 6.8 -Current Size (cm) - Width 1.9 -Current Size (cm) - Depth 0.1 -Total Square Cm 12.92 -Photo Taken Yes -Exudate Amt Medium -Exudate Type Serosanguineous -Wound Margin Distinct, Outline Attached -Granulation Amt Small (1-33%) -Necrosis Amt Large (67-100%) -Necrotic Tissue Type Adherent Slough -Structure Exposed N/A -Texture (Marie-wound Skin Appearance) Scarring -Moisture (Marie-wound Skin Appearance) Dry/Scaly -Color (Marie-wound Skin Appearance) No Abnormality -Temperature (Marie-wound Skin No Abnormality Appearance) (Pt Warm) -Tenderness on Palpation (Marie-wound No Skin Appearance) -Ulcer Cleansing Soap and Water -Foul Odor after Cleansing No -Anesthetic Used 5% Lidocaine Gel - Nurse 2 - General Ulcer CM Notes Start: 04/24/24 09:59 Freq: Status: Active Protocol: Activity Type Activity Date Activity User E-sign Co-sign Detail Recorded Client Recorded Date Recorded By Document 05/11/24 11:15 [facility] [id number] 05/11/24 11:29 [facility] 05/11/24 11:15 Wound Center Nurse 2 -Time 11:15 -Correct Patient Yes -Correct Side, Site, Position Yes -Correct Procedure Yes -Procedure Performed Yes -Type of Procedure Debridement -Clinical Debridement Subcutaneous -Tissue Removed Subcutaneous -Post Debridement (cm) - Length 3 -Post Debridement (cm) - Width 2.1 -Post Debridement (cm) - Depth 0.1 -Total Square (Post) (cm) 6.3 -Area of Debridement (cm) - Length 3 -Area of Debridement (cm) - Width 2.1 -Total Square (Area) (cm) 6.3 -Tunneling No -Undermining/Tunneling No -Circular Undermining No -Wound/Ulcer Outcome Not Healed -Ulcer Cleansing Rinsed/ Irrigated with Saline -Foul Odor after Cleansing No -Type of Bioengineered Tissue Epifix Mesh -Expiration Date 09/21/28 -Product Lot Number [id number] -Percent Used 100 -Lot number of Saline Used [id number] -Bleeding Controlled with Pressure,Silver Nitrate, Chemical Cauterization ( $) -Treatment Response Procedure Tolerated Well -Debridement - Subq, 1st 20sq cm No -Apply Skin Sub - 1st 25 sq cm - Feet 1 -Epifix Mesh (per sq cm) 11 Pain Scale: 0-10 Numeric Is Patient Pain Free? Yes - Nurse 3 - General Ulcer D/C NN Start: 04/24/24 09:59 Freq: Status: Active Protocol: Activity Type Activity Date Activity User E-sign Co-sign Detail Recorded Client Recorded Date Recorded By Document 05/11/24 12:06 [id number] 05/11/24 12:08 RB 05/11/24 12:06 Wound Care Center Nurse 3 #5 RDorsal/Anterior Ankle -Ulcer Cleansing Rinsed/ Irrigated with Saline -Primary Dressing Applied Aquacel Extra -Other Dressing ABD -Primary Dressing Covered/Secured with Dry Gauze & Roll Gauze, Secured with Tape -Aquacel Extra 1 Right -Other verito Treatment Response Procedure Tolerated Well Pain Scale: 0-10 Numeric Is Patient Pain Free? Yes WC - Visit Discharge Discharge Condition Stable Ambulatory Status Ambulatory Transportation Private Auto Medication Reconcilliation completed & No provided to patient/care provider Clinical Summary of Care Provided Yes Assessment/Plan Assessment/Plan (1) Type 2 diabetes mellitus with foot ulcer: CODE(S): E11.621 - Type 2 diabetes mellitus with foot ulcer; L97.509 - Non-pressure chronic ulcer of other part of unspecified foot with unspecified severity QUALIFIERS: Diabetes mellitus associate research scientist insulin use: with custodial use Qualified Code(s): E11.621 - Type 2 diabetes mellitus with foot ulcer; L97.509 - Non-pressure chronic ulcer of other part of unspecified foot with unspecified severity; Z79.4 - correction (current) use of insulin (2) Non-pressure chronic ulcer of other part of right foot with fat layer exposed: CODE(S): L97.512 - Non-pressure chronic ulcer of other part of right foot with fat layer exposed (3) Type 2 diabetes mellitus with diabetic polyneuropathy: CODE(S): E11.42 - Type 2 diabetes mellitus with diabetic polyneuropathy QUALIFIERS: Diabetes mellitus custodial insulin use: with associate research scientist use Qualified Code(s): E11.42 - Type 2 diabetes mellitus with diabetic polyneuropathy; Z79.4 - correction (current) use of insulin (4) Charcot's joint of right foot: CODE(S): M14.671 - Charcot's joint, right ankle and foot PLAN: Plan The patient appears to be tolerating hyperbaric oxygen therapy well, which will be continued as per their medical treatment plan.
[2024-05-15 08:35] LABS: Bedside Glucose 277 mg/dL (74-106)
[2024-05-15 08:56] LABS: Bedside Glucose 243 mg/dL (74-106)
--- NOTE | 2024-05-15 09:36 | HBO.PN.PCM_ITS ---
History of Present Illness Date of Service: 05/15/24 Chief Complaint: HBO for right diabetic foot ulcer History of Wound: Ms. Falk is a 58-year-old currently being seen here at the wound center who was referred for HBO consult. Currently being managed for diabetic foot ulcer, documented as Gonzalez stage III. Has had at least 30 days of conservative wound care. History of insulin-dependent diabetes mellitus. Recent A1c was about 11. She however states that her numbers have been much better lately. No concerns for significant hypoglycemic episodes. Prior session of hyperbaric oxygen therapy about 2 years ago which she tolerated well. Had a bout of vertigo which improved after vestibular sessions by ENT. No tobacco abuse. No history of heart or lung disease. No history of seizure disorder severe claustrophobia. Progress of Wound: Progress: Today's session represents the th treatment of a planned 30 sessions. Tolerance: Hyperbaric oxygen therapy was administered as per the facility's protocol. 100% oxygen at 2 KELLY for 90 minutes without air breaks. She tolerated hyperbaric oxygen therapy without any complaints or complications. Upon emergence from the chamber, her vitals remained stable and she was discharged in stable condition. Pre and post blood glucose readings as documented. Objective Data Objective Data Vital Signs: Vital Signs Temp Pulse Resp BP O2 Del Method 96.9 F L 80 15 122/71 H Room Air 05/12/24 10:28 05/12/24 10:28 05/12/24 10:28 05/12/24 10:28 05/04/24 09:46 Oxygen Delivery Method Room Air Lab / Micro Data Labs: Laboratory Results - last 24 hr 05/15/24 08:18: POC Glucose 277 H 05/15/24 08:39: POC Glucose 243 H Exam Physical Exam Const alert and oriented x3 General Appearance: cooperative HEENT normocephalic HEENT Narrative: Bilateral Tympanostomy tubes in place. Eyes General Eye: normal appearance of both eyes Resp normal respiratory effort, no use of accessory muscles and clear to auscultation bilaterally Effort and Inspection: able to speak in complete sentences Cardio regular rate and regular rhythm Palpation: normal PMI Psych affect normal Charges/Coding Wound Center CF Procedures HBO Supervision: [id number] Hyperbaric Oxygen; supervision Assessment/Plan Assessment/Plan (1) Type 2 diabetes mellitus with foot ulcer: CODE(S): E11.621 - Type 2 diabetes mellitus with foot ulcer; L97.509 - Non-pressure chronic ulcer of other part of unspecified foot with unspecified severity QUALIFIERS: Diabetes mellitus longterm insulin use: with medical terminologist use Qualified Code(s): E11.621 - Type 2 diabetes mellitus with foot ulcer; L97.509 - Non-pressure chronic ulcer of other part of unspecified foot with unspecified severity; Z79.4 - [facility] (current) use of insulin (2) Non-pressure chronic ulcer of other part of right foot with fat layer exposed: CODE(S): L97.512 - Non-pressure chronic ulcer of other part of right foot with fat layer exposed (3) Type 2 diabetes mellitus with diabetic polyneuropathy: CODE(S): E11.42 - Type 2 diabetes mellitus with diabetic polyneuropathy QUALIFIERS: Diabetes mellitus medical terminologist insulin use: with longterm use Qualified Code(s): E11.42 - Type 2 diabetes mellitus with diabetic polyneuropathy; Z79.4 - superintendent terminal (current) use of insulin (4) Charcot's joint of right foot: CODE(S): M14.671 - Charcot's joint, right ankle and foot PLAN: Plan The patient appears to be tolerating hyperbaric oxygen therapy well, which will be continued as per their medical treatment plan.
[2024-05-15 10:02] VITALS: BP 125/71; BP 143/73; PULSE 71; PULSE 84; RESP 15; RESP 16; TEMP 36.1; TEMP 36.3
[2024-05-15 11:04] LABS: Bedside Glucose 137 mg/dL (74-106)
--- NOTE | 2024-05-15 11:47 | WC ---
PHOTO 05/11/24 RIGHT DORSAL
[2024-05-18 08:39] LABS: Bedside Glucose 151 mg/dL (74-106)
--- NOTE | 2024-05-18 09:27 | PCM.HBO.PN ---
History of Present Illness Date of Service: 05/18/24 Chief Complaint: HBO for right diabetic foot ulcer History of Wound: Ms. Falk is a 58-year-old currently being seen here at the wound center who was referred for HBO consult. Currently being managed for diabetic foot ulcer, documented as Gonzalez stage III. Has had at least 30 days of conservative wound care. History of insulin-dependent diabetes mellitus. Recent A1c was about 11. She however states that her numbers have been much better lately. No concerns for significant hypoglycemic episodes. Prior session of hyperbaric oxygen therapy about 2 years ago which she tolerated well. Had a bout of vertigo which improved after vestibular sessions by ENT. No tobacco abuse. No history of heart or lung disease. No history of seizure disorder severe claustrophobia. Progress of Wound: Progress: Today's session represents the 20th treatment of a planned 30 sessions. Tolerance: Hyperbaric oxygen therapy was administered as per the facility's protocol. 100% oxygen at 2 KELLY for 90 minutes without air breaks. She tolerated hyperbaric oxygen therapy without any complaints or complications. Upon emergence from the chamber, her vitals remained stable and she was discharged in stable condition. Pre and post blood glucose readings as documented. Objective Data Objective Data Vital Signs: Vital Signs Temp Pulse Resp BP O2 Del Method 96.9 F L 84 15 143/73 H Room Air 05/15/24 10:02 05/15/24 10:02 05/15/24 10:02 05/15/24 10:02 05/04/24 09:46 Oxygen Delivery Method Room Air Lab / Micro Data Labs: Laboratory Results - last 24 hr 05/18/24 08:21: POC Glucose 151 H Exam Physical Exam Const alert, oriented x3 and no apparent distress General Appearance: cooperative, comfortable and well kempt HEENT normocephalic, head/scalp atraumatic and hearing grossly normal bilaterally Tympanic Membrane: TM's normal bilaterally and other Other Details: Bilateral tympanostomy tubes in place. Eyes EOMs intact bilaterally Neck full ROM General: normal visual inspection Resp normal respiratory effort Effort and Inspection: able to speak in complete sentences Neuro oriented x3 and CN's II-XII intact bilaterally Psych mental status grossly normal, thought process normal, cooperative and affect normal Charges/Coding Wound Center CF Procedures HBO Supervision: [id number] Hyperbaric Oxygen; supervision Assessment/Plan Assessment/Plan (1) Type 2 diabetes mellitus with foot ulcer: CODE(S): E11.621 - Type 2 diabetes mellitus with foot ulcer; L97.509 - Non-pressure chronic ulcer of other part of unspecified foot with unspecified severity QUALIFIERS: Diabetes mellitus long-term insulin use: with long-term use Qualified Code(s): E11.621 - Type 2 diabetes mellitus with foot ulcer; L97.509 - Non-pressure chronic ulcer of other part of unspecified foot with unspecified severity; Z79.4 - deputy sheriff generalist/bailiff (current) use of insulin (2) Non-pressure chronic ulcer of other part of right foot with fat layer exposed: CODE(S): L97.512 - Non-pressure chronic ulcer of other part of right foot with fat layer exposed (3) Type 2 diabetes mellitus with diabetic polyneuropathy: CODE(S): E11.42 - Type 2 diabetes mellitus with diabetic polyneuropathy QUALIFIERS: Diabetes mellitus long-term insulin use: with upholsterer outside use Qualified Code(s): E11.42 - Type 2 diabetes mellitus with diabetic polyneuropathy; Z79.4 - deputy sheriff generalist/bailiff (current) use of insulin (4) Charcot's joint of right foot: CODE(S): M14.671 - Charcot's joint, right ankle and foot PLAN: Plan Phylicia tolerated hyperbaric oxygen therapy well which will be continued per her medical plan. This note was generated with [employer] in [employer] software. It may contain incorrect words, spelling, and punctuation that were not noted in checking the note before signing.
[2024-05-18 11:03] LABS: Bedside Glucose 97 mg/dL (74-106)
[2024-05-18 11:08] VITALS: BP 106/60; BP 97/57; PULSE 62; PULSE 80; RESP 14; RESP 15; TEMP 36.1; TEMP 36.2
[2024-05-19 08:50] LABS: Bedside Glucose 167 mg/dL (74-106)
[2024-05-19 10:59] VITALS: BP 103/62; BP 128/79; PULSE 67; PULSE 73; RESP 15; RESP 16; TEMP 36.1; TEMP 36.2
[2024-05-19 11:05] LABS: Bedside Glucose 117 mg/dL (74-106)
--- NOTE | 2024-05-19 14:08 | HBO.PN.PCM_ITS ---
History of Present Illness Date of Service: 05/19/24 Chief Complaint: HBO for right diabetic foot ulcer History of Wound: Ms. Falk is a 58-year-old currently being seen here at the wound center who was referred for HBO consult. Currently being managed for diabetic foot ulcer, documented as Gonzalez stage III. Has had at least 30 days of conservative wound care. History of insulin-dependent diabetes mellitus. Recent A1c was about 11. She however states that her numbers have been much better lately. No concerns for significant hypoglycemic episodes. Prior session of hyperbaric oxygen therapy about 2 years ago which she tolerated well. Had a bout of vertigo which improved after vestibular sessions by ENT. No tobacco abuse. No history of heart or lung disease. No history of seizure disorder severe claustrophobia. Progress of Wound: Progress: Today's session represents the 22nd treatment of a planned 30 sessions. Tolerance: Hyperbaric oxygen therapy was administered as per the facility's protocol. 100% oxygen at 2 KELLY for 90 minutes without air breaks. She tolerated hyperbaric oxygen therapy without any complaints or complications. Upon emergence from the chamber, her vitals remained stable and she was discharged in stable condition. Pre and post blood glucose readings as documented. Objective Data Objective Data Vital Signs: Vital Signs Temp Pulse Resp BP O2 Del Method 96.9 F L 73 15 128/79 H Room Air 05/19/24 10:59 05/19/24 10:59 05/19/24 10:59 05/19/24 10:59 05/04/24 09:46 Oxygen Delivery Method Room Air Lab / Micro Data Labs: Laboratory Results - last 24 hr 05/19/24 08:32: POC Glucose 167 H 05/19/24 10:48: POC Glucose 117 H Exam Physical Exam Const alert, oriented x3 and no apparent distress Psych mental status grossly normal, thought process normal, cooperative, affect normal and speech normal Assessment/Plan Assessment/Plan (1) Type 2 diabetes mellitus with foot ulcer: CODE(S): E11.621 - Type 2 diabetes mellitus with foot ulcer; L97.509 - Non-pressure chronic ulcer of other part of unspecified foot with unspecified severity QUALIFIERS: Diabetes mellitus senior living insulin use: with manager long term care use Qualified Code(s): E11.621 - Type 2 diabetes mellitus with foot ulcer; L97.509 - Non-pressure chronic ulcer of other part of unspecified foot with unspecified severity; Z79.4 - [facility] (current) use of insulin (2) Non-pressure chronic ulcer of other part of right foot with fat layer exposed: CODE(S): L97.512 - Non-pressure chronic ulcer of other part of right foot with fat layer exposed (3) Type 2 diabetes mellitus with diabetic polyneuropathy: CODE(S): E11.42 - Type 2 diabetes mellitus with diabetic polyneuropathy QUALIFIERS: Diabetes mellitus manager long term care insulin use: with manager long term care use Qualified Code(s): E11.42 - Type 2 diabetes mellitus with diabetic polyneuropathy; Z79.4 - [facility] (current) use of insulin (4) Charcot's joint of right foot: CODE(S): M14.671 - Charcot's joint, right ankle and foot PLAN: Plan The patient appears to be tolerating hyperbaric oxygen therapy well, which will be continued as per their medical treatment plan.
[2024-05-22 08:29] LABS: Bedside Glucose 140 mg/dL (74-106)
--- NOTE | 2024-05-22 10:44 | HBO.PN.PCM_ITS ---
History of Present Illness Date of Service: 05/22/24 Chief Complaint: HBO for right diabetic foot ulcer History of Wound: Ms. Falk is a 58-year-old currently being seen here at the wound center who was referred for HBO consult. Currently being managed for diabetic foot ulcer, documented as Gonzalez stage III. Has had at least 30 days of conservative wound care. History of insulin-dependent diabetes mellitus. Recent A1c was about 11. She however states that her numbers have been much better lately. No concerns for significant hypoglycemic episodes. Prior session of hyperbaric oxygen therapy about 2 years ago which she tolerated well. Had a bout of vertigo which improved after vestibular sessions by ENT. No tobacco abuse. No history of heart or lung disease. No history of seizure disorder severe claustrophobia. Progress of Wound: Progress: Today's session represents the rd treatment of a planned 30 sessions. Tolerance: Hyperbaric oxygen therapy was administered as per the facility's protocol. 100% oxygen at 2 KELLY for 90 minutes without air breaks. She tolerated hyperbaric oxygen therapy without any complaints or complications. Upon emergence from the chamber, her vitals remained stable and she was discharged in stable condition. Pre and post blood glucose readings as documented. Objective Data Objective Data Vital Signs: Vital Signs Temp Pulse Resp BP O2 Del Method 96.9 F L 73 15 128/79 H Room Air 05/19/24 10:59 05/19/24 10:59 05/19/24 10:59 05/19/24 10:59 05/04/24 09:46 Oxygen Delivery Method Room Air Lab / Micro Data Labs: Laboratory Results - last 24 hr 05/22/24 08:12: POC Glucose 140 H Exam Physical Exam Const alert and oriented x3 General Appearance: cooperative HEENT normocephalic HEENT Narrative: Bilateral Tympanostomy tubes in place. Eyes General Eye: normal appearance of both eyes Resp normal respiratory effort, no use of accessory muscles and clear to auscultation bilaterally Effort and Inspection: able to speak in complete sentences Cardio regular rate and regular rhythm Palpation: normal PMI Psych affect normal Charges/Coding Wound Center CF Procedures HBO Supervision: [id number] Hyperbaric Oxygen; supervision Assessment/Plan Assessment/Plan (1) Type 2 diabetes mellitus with foot ulcer: CODE(S): E11.621 - Type 2 diabetes mellitus with foot ulcer; L97.509 - Non-pressure chronic ulcer of other part of unspecified foot with unspecified severity QUALIFIERS: Diabetes mellitus termite exterminator insulin use: with skilled nursing use Qualified Code(s): E11.621 - Type 2 diabetes mellitus with foot ulcer; L97.509 - Non-pressure chronic ulcer of other part of unspecified foot with unspecified severity; Z79.4 - [facility] (current) use of insulin (2) Non-pressure chronic ulcer of other part of right foot with fat layer exposed: CODE(S): L97.512 - Non-pressure chronic ulcer of other part of right foot with fat layer exposed (3) Type 2 diabetes mellitus with diabetic polyneuropathy: CODE(S): E11.42 - Type 2 diabetes mellitus with diabetic polyneuropathy QUALIFIERS: Diabetes mellitus skilled nursing insulin use: with termite exterminator use Qualified Code(s): E11.42 - Type 2 diabetes mellitus with diabetic polyneuropathy; Z79.4 - terminal operations supervisor (current) use of insulin (4) Charcot's joint of right foot: CODE(S): M14.671 - Charcot's joint, right ankle and foot PLAN: Plan The patient appears to be tolerating hyperbaric oxygen therapy well, which will be continued as per their medical treatment plan.
[2024-05-22 10:46] LABS: Bedside Glucose 129 mg/dL (74-106)
[2024-05-22 10:53] VITALS: BP 119/73; BP 139/69; PULSE 55; PULSE 69; RESP 16; RESP 18; TEMP 35.7; TEMP 36.5
== END 2024-05-23 23:59 | disposition home or self-care (01) ==
LOC: WC 08:00
PROVIDERS: PCP Family Medicine; Referring Provider Student in an Organized Health Care Education/Training Program; Visit Provider Student in an Organized Health Care Education/Training Program
DX: E11.621 Type 2 diabetes mellitus with foot ulcer (principal); L97.412 Non-pressure chronic ulcer of right heel and midfoot with fat layer exposed; E11.42 Type 2 diabetes mellitus with diabetic polyneuropathy; Z79.4 Long term (current) use of insulin; E11.610 Type 2 diabetes mellitus with diabetic neuropathic arthropathy; R42 Dizziness and giddiness; Z79.899 Other long term (current) drug therapy
CPT/HCPCS: 15275; 17250; 82962; 99183; Q4186; G0277

== ENCOUNTER 2024-06-23 08:00 | Outpatient (RCR) | payer MEDICAID, SELFPAY ==
[2024-05-24 00:48] VITALS: BP 110/55; BP 114/73; BP 128/77; PULSE 74; PULSE 87; PULSE 95; RESP 16; RESP 18; TEMP 35.8; TEMP 36.3; TEMP 36.8
[2024-05-25 08:42] LABS: Bedside Glucose 202 mg/dL (74-106)
--- NOTE | 2024-05-25 09:10 | PCM.HBO.PN ---
History of Present Illness Date of Service: 05/25/24 Chief Complaint: Right foot ulceration History of Wound: This 58-year-old female presents for care of right foot wound. She was previously admitted to the [facility] 02/06/2024 secondary to starvation ketosis with elevated blood sugars. During hospital stay she did develop new acute infection in the dorsal aspect of the right foot and underwent I&D with application of a wound VAC on 02/10/2024. She was noted to be healing well following surgery and was discharged to [facility] for continued application of the wound VAC. She is now since been released from [facility] and wound VAC is now discontinued secondary to insurance coverage. Wound has however granulated in well and sutures are still intact at the incision sites. No signs of infection. States her blood sugars are doing well now that she is on long-acting insulin. Patient denies constitutional symptoms. Denies further complaints. Progress of Wound: Progress: Today's session represents the 24TH treatment of a planned 30 sessions. Tolerance: Hyperbaric oxygen therapy was administered as per the facility's protocol. 100% oxygen at 2 KELLY for 90 minutes without air breaks. She tolerated hyperbaric oxygen therapy without any complaints or complications. Upon emergence from the chamber, her vitals remained stable and she was discharged in stable condition. Pre and post blood glucose readings as documented. Current encounter, 25 May 2023: Dong well overall. No ear pain, no SOB Objective Data Objective Data Vital Signs: Vital Signs Temp Pulse Resp BP 98.2 F 95 16 114/73 05/24/24 00:48 05/24/24 00:48 05/24/24 00:48 05/24/24 00:48 Lab / Micro Data Labs: Laboratory Results - last 24 hr 05/25/24 08:24: POC Glucose 202 H Exam Physical Exam Const alert and oriented x3 HEENT HEENT Narrative: tubes bilaterally Eyes EOMs intact bilaterally Resp normal respiratory effort Resp Narrative: CTA bilaterally Cardio Rate: regular rate Rhythm: regular rhythm Charges/Coding Wound Center CF Procedures HBO Supervision: [id number] Hyperbaric Oxygen; supervision Assessment/Plan Assessment/Plan (1) Type 2 diabetes mellitus with foot ulcer: CODE(S): E11.621 - Type 2 diabetes mellitus with foot ulcer; L97.509 - Non-pressure chronic ulcer of other part of unspecified foot with unspecified severity QUALIFIERS: Diabetes mellitus terminal block assembler insulin use: with terminal block assembler use Qualified Code(s): E11.621 - Type 2 diabetes mellitus with foot ulcer; L97.509 - Non-pressure chronic ulcer of other part of unspecified foot with unspecified severity; Z79.4 - terminal gauger supervisor (current) use of insulin (2) Non-pressure chronic ulcer of other part of right foot with fat layer exposed: CODE(S): L97.512 - Non-pressure chronic ulcer of other part of right foot with fat layer exposed (3) Type 2 diabetes mellitus with diabetic polyneuropathy: CODE(S): E11.42 - Type 2 diabetes mellitus with diabetic polyneuropathy QUALIFIERS: Diabetes mellitus jail insulin use: with terminal block assembler use Qualified Code(s): E11.42 - Type 2 diabetes mellitus with diabetic polyneuropathy; Z79.4 - terminal gauger supervisor (current) use of insulin (4) Charcot's joint of right foot: CODE(S): M14.671 - Charcot's joint, right ankle and foot PLAN: Plan The patient appears to be tolerating hyperbaric oxygen therapy well, which will be continued as per their medical treatment plan.
[2024-05-25 10:53] VITALS: BP 117/68; BP 123/69; PULSE 69; PULSE 88; RESP 15; RESP 17; TEMP 36.1
[2024-05-25 10:54] VITALS: BP 123/69; PULSE 69; RESP 16; TEMP 36.1
[2024-05-25 11:02] LABS: Bedside Glucose 109 mg/dL (74-106)
--- NOTE | 2024-05-25 12:41 | PCM.CONHBO ---
Assessment & Plan Assessment/Plan (1) Type 2 diabetes mellitus with foot ulcer: QUALIFIERS: Diabetes mellitus usp insulin use: with computer terminal operator use Qualified Code(s): E11.621 - Type 2 diabetes mellitus with foot ulcer; L97.509 - Non-pressure chronic ulcer of other part of unspecified foot with unspecified severity; Z79.4 - computer terminal operator (current) use of insulin PLAN: Gonzalez stage III (2) Type 2 diabetes mellitus with diabetic polyneuropathy: QUALIFIERS: Diabetes mellitus usp insulin use: with usp use Qualified Code(s): E11.42 - Type 2 diabetes mellitus with diabetic polyneuropathy; Z79.4 - computer terminal operator (current) use of insulin (3) Non-pressure chronic ulcer of other part of right foot with fat layer exposed: PLAN: Plan So far, has done really well with current measures. Has had 23 sessions of hyperbaric oxygen therapy. Also has a skin substitute applied. Ulcer is improving. No concerning side effects/poor tolerance of HBO. Given the above, I believe she would continue to benefit from hyperbaric oxygen until complete closure/healing. Recommending 30 more sessions of hyperbaric oxygen treatments, 100% oxygen at 2 KELLY for 90 minutes without a break. Continue blood glucose monitoring pre and post per protocol. Continue other current wound care measures. Her questions were answered and she was advised to let us know if she has any further questions or concerns, she voiced understanding. This note was generated with [employer] dictation software. It may contain incorrect words, spelling, and punctuation that were not noted in checking the note before signing. History of Present Illness Date of Service: 05/25/24 Chief Complaint: HBO recertification History of Wound: Ms. Falk is a 58-year-old currently being seen at the wound center for right foot/ankle ulcer. Since her initial certification, has had 23 sessions of hyperbaric oxygen therapy which she has tolerated well and there has been corresponding significant improvement in ulcer. 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 Blood glucose readings have been largely stable. No chest pain, tightness, blurry vision or concerns reported. [facility] Medical History (Updated 03/16/24 @ 13:[address] Shila Howard MD) Hypotension Post-menopausal Back pain Injury of head and neck Dietary restriction Diabetes Former smoker Asthma Chronic ulcer of right foot due to diabetes mellitus Non-pressure 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 Infectious tenosynovitis Cellulitis of right lower limb MRSA bacteremia Acute osteomyelitis of left foot Diabetes mellitus with diabetic polyneuropathy Charcot's joint of right foot Narcolepsy Sleep disorder Allergies Hypothyroidism History of MRSA infection Weakness COVID-19 DKA, type 2 Malnutrition 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 Home Medications ?Medication ?Instructions ?Recorded ?Last Taken ?Type armodafinil 150 mg tablet 150 mg PO BID to stay awake 09/25/16 Unknown History montelukast 10 mg tablet 10 mg PO QHS allergy 09/25/16 Unknown History (Singulair) baclofen 10 mg tablet 10 mg PO TID PRN muscle relax 01/01/21 Unknown History ibuprofen 200 mg tablet (Advil) 400 mg PO BID pain 05/21/21 Unknown History levocetirizine 5 mg tablet 1 tab PO DAILY PRN Allergies 11/22/21 Unknown History levothyroxine 112 mcg tablet 112 mcg PO DAILY thyroi 02/09/24 Unknown History daptomycin 500 mg intravenous 750 mg IV DAILY 40 days 02/18/24 Unknown Rx solution acetaminophen 325 mg tablet 650 mg (2 x 325 mg) PO Q6H PRN PRN 02/20/24 Unknown Rx Pain 1-10 Or Fever >100.7 #0 tabs insulin glargine-yfgn 100 unit/mL 28 unit (0.28 mL) subcut BID #0 mL 02/20/24 Unknown Rx (3 mL) subcutaneous pen insulin lispro 100 unit/mL 18 unit (0.18 mL) subcut TIDAC #0 02/20/24 Unknown Rx subcutaneous pen (Humalog KwikPen mL (U-100) Insulin) liothyronine 5 mcg tablet (Cytomel) 12.5 mcg (2.5 x 5 mcg) PO 02/20/24 Unknown Rx DAILY@0600 #0 tabs hydrocodone-acetaminophen 5-325mg 1 tab PO Q6H PRN pain 3 days #12 02/22/24 Unknown Rx 5mg-325mg tabs Allergy/AdvReac Type Severity Reaction Status Date / Time clindamycin Allergy Hives Verified 03/09/24 10:41 pregabalin (From Lyrica) Allergy Swelling Verified 03/09/24 10:41 bee venom protein (honey bee) AdvReac Anaphylaxis Verified 03/09/24 10:41 vancomycin AdvReac Other Verified 03/09/24 10:41 Family History Father CVA (cerebral vascular accident) Clotting disorder Seizures Mother Osteoarthritis Other Charcot's joint of right foot Diabetes Heart disease Hypertension 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 alcohol intake: current alcohol intake frequency: holidays/special occasions only substance use type: does not use ROS Constitutional Constitutional: Denies change in weight, chills, daytime sleepiness, fatigue, frequent falls, headache(s) or increased appetite Eyes Eyes: Denies acute decrease in peripheral vision, blind spots, change in eye color, change in vision, discongugate gaze or double vision ENT HEENT: Denies ear pain, epistaxis, facial pain, foreign body in nose, halitosis, headache(s) or mouth pain Cardiovascular Cardiovascular: Denies abdominal pain, bluish discoloration of hand/feet, chest pain, claudication, clubbing or cold extremities Respiratory/Chest Respiratory/Chest: Denies chest congestion, difficulty clearing secretions, dyspnea on exertion, excessive phlegm production, hemoptysis or inability to speak Gastrointestinal Gastrointestinal: Denies abdominal pain, change in bowel habits, change in stool character, chewing difficulty, dry heaves, dysphagia or excessive flatus Genitourinary Genitourinary: Denies abdominal discomfort, burning urination, difficulty urinating or flank pain Musculoskeletal Musculoskeletal: Denies muscle spasms, muscle weakness, numbness, tingling or tremors Integumentary Integumentary: Denies change in pigmentation, changing lesions, furuncle, hirsutism, jaundice or pruritus Neurologic Neurologic: Denies abnormal speech, behavior changes, focal weakness, frequent falls, loss of vision or memory loss Psychiatric Psychiatric: Denies auditory hallucinations, behavioral changes, hallucinations, irritability, memory loss, tactile hallucinations or visual hallucinations Endocrine Endocrinology: Denies cold intolerance, deepening of the voice, excessive sweating, flushing, heat intolerance or palpitations Hematologic/Lymphatic Hematologic/Lymphatic: Denies easy bleeding Allergic/Immunologic Allergic/Immunologic: Denies itchy eyes, lip swelling, throat swelling, tongue swelling, eczemia or wheezing Physical Exam Physical Exam Const alert, oriented x3 and no apparent distress General Appearance: cooperative, comfortable and well kempt HEENT normocephalic, head/scalp atraumatic and hearing grossly normal bilaterally Eyes EOMs intact bilaterally Neck full ROM and no lymphadenopathy General: normal visual inspection Resp normal respiratory effort and normal air movement Effort and Inspection: able to speak in complete sentences Cardio regular rate, regular rhythm, S1 normal heart sound and S2 normal heart sound GI soft to palpation and non-tender Extremity General Extremity: edema Neuro oriented x3, CN's II-XII intact bilaterally, moves all extremities and no focal motor deficits Psych mental status grossly normal, thought process normal, cooperative and affect normal Nursing Assessment and Debridement Post-Debridement Measurements and Additional Note: Post-Debridement Measurements/Treatment - Nurse 1 - General Ulcer Assessment Start: 05/25/24 10:53 Freq: Status: Active Protocol: RUKHSANA Activity Type Activity Date Activity User E-sign Co-sign Detail Recorded Client Recorded Date Recorded By Document 05/25/24 10:54 JENIFFER [id number] 05/25/24 11:04 DL 05/25/24 10:54 ALISSA - Today's Visit Information Type of service Follow-up Visit (Physician/EXCEPTIONAL STUDENT EDUCATION AIDE ) Arrival Mode Ambulatory Transfer Assistance None Patient Identification Verified (Name & Yes ) Patient Requires Transmission-Based No Precautions Finger Stick Blood Sugar(mg/dl) (if 109 indicated): Blood Sugar Done During this Visit Vital Signs Temperature (97.8 F-99.1 F) 97 F L Temperature Source Temporal Pulse Rate (60-100 beats/min) 69 Pulse Location Monitor Respiratory Rate (12-18 breaths/min) 16 Respiratory rate source Observation Blood Pressure (90/60-120/80 mm Hg) 123/69 H Blood Pressure Mean (mm Hg) 87 Source Monitor History Since Last Visit- (Skip if this is Patient's initial visit) Have you changed medications since your No last visit? Any new allergies or adverse reactions No Had a fall/change in ADL's that may No increase risk of falls Signs or symptoms of abuse and/or No neglect since last visit Have you been in the hospital since your No last visit? Has dressing in place as prescribed Yes Has compression in place as prescribed Yes Has offloadiing in place as prescribed Yes Experienced any changes in pain level or No management Pain Scale: 0-10 Numeric Is Patient Pain Free? Yes WC - Nurse 1 - General Ulcer Measurement Start: 05/25/24 10:53 Freq: Status: Active Protocol: Activity Type Activity Date Activity User E-sign Co-sign Detail Recorded Client Recorded Date Recorded By Document 05/25/24 10:54 DL [id number] 05/25/24 11:04 DL 05/25/24 10:54 Wound Center Nurse 1 #5 RDorsal/Anterior Ankle -Current Size (cm) - Length 3.5 -Current Size (cm) - Width 2.3 -Current Size (cm) - Depth 0.1 -Total Square Cm 8.05 -Photo Taken Yes -Exudate Amt Medium -Exudate Type Serosanguineous -Wound Margin Distinct, Outline Attached -Granulation Amt None Present (0 %) -Granulation Quality Hyper- granulation -Necrosis Amt Large (67-100%) -Necrotic Tissue Type Adherent Slough -Structure Exposed N/A -Texture (Marie-wound Skin Appearance) Scarring -Moisture (Marie-wound Skin Appearance) No Abnormality -Color (Marie-wound Skin Appearance) No Abnormality -Temperature (Marie-wound Skin No Abnormality Appearance) (Pt Warm) -Tenderness on Palpation (Marie-wound No Skin Appearance) -Ulcer Cleansing Soap and Water -Foul Odor after Cleansing No -Anesthetic Used 5% Lidocaine Gel WC - Nurse 2 - General Ulcer CM Notes Start: 05/25/24 10:53 Freq: Status: Active Protocol: Activity Type Activity Date Activity User E-sign Co-sign Detail Recorded Client Recorded Date Recorded By Document 05/25/24 11:12 [facility] [id number] 05/25/24 11:47 BMF 05/25/24 11:12 Wound Center Nurse 2 -Time 11:14 -Correct Patient Yes -Correct Side, Site, Position Yes -Correct Procedure Yes -Procedure Performed Yes -Type of Procedure Debridement -Clinical Debridement Subcutaneous -Tissue Removed Subcutaneous -Post Debridement (cm) - Length 3 -Post Debridement (cm) - Width 2.3 -Post Debridement (cm) - Depth 0.1 -Total Square (Post) (cm) 6.9 -Area of Debridement (cm) - Length 3 -Area of Debridement (cm) - Width 2.3 -Total Square (Area) (cm) 6.9 -Tunneling No -Undermining/Tunneling No -Circular Undermining No -Wound/Ulcer Outcome Not Healed -Ulcer Cleansing Rinsed/ Irrigated with Saline -Foul Odor after Cleansing No -Bioengineered Tissue No -Type of Bioengineered Tissue Epifix Mesh -Expiration Date 11/21/28 -Product Lot Number [id number] -Percent Used 100 -Lot number of Saline Used [id number] -Bleeding Controlled with Pressure, SURGIFOAM -Other Type of Bleeding Control bovie used -Treatment Response Procedure Tolerated Well -Debridement - Subq, 1st 20sq cm No -Apply Skin Sub - 1st 25 sq cm - Feet 1 -Epifix Mesh (per sq cm) 11 Pain Scale: 0-10 Numeric Is Patient Pain Free? Yes - Nurse 3 - General Ulcer D/C NN Start: 05/25/24 10:53 Freq: Status: Active Protocol: Activity Type Activity Date Activity User E-sign Co-sign Detail Recorded Client Recorded Date Recorded By Document 05/25/24 11:55 DL [id number] 05/25/24 11:57 DL 05/25/24 11:55 Wound Care Center Nurse 3 #5 RDorsal/Anterior Ankle -Foul Odor after Cleansing No -Primary Dressing Applied Aquacel Extra, Surgifoam -Other Dressing Epimesh -Primary Dressing Covered/Secured with Dry Gauze & Roll Gauze, Secured with Tape -Aquacel Extra 1 -Surgifoam 12-7mm (3/4 x 2 3/8) 2 -Wound Comment(s) Bovie used today per Dr. Lewis. Right -Compression Wrap Sebastian Wrap Treatment Response Procedure Tolerated Well Pain Scale: 0-10 Numeric Is Patient Pain Free? Yes WC - Visit Discharge Discharge Condition Stable Ambulatory Status Ambulatory Transportation Private Auto Facility Type Home Health Orders Sent Yes Lab / Micro Data Labs: Laboratory Results - last 24 hr 05/25/24 08:24: POC Glucose 202 H 05/25/24 10:43: POC Glucose 109 H Charges/Coding Visit Charges Office Visits / Consults: 72460 OV L3 Est 20min
--- NOTE | 2024-05-25 13:16 | PCM.WC.PN ---
History of Present Illness Date of Service: 05/25/24 Chief Complaint: HBO recertification History of Wound: Ms. Falk is a 58-year-old currently being seen at the wound center for right foot/ankle ulcer. Since her initial certification, has had 23 sessions of hyperbaric oxygen therapy which she has tolerated well and there has been corresponding significant improvement in ulcer. 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 Blood glucose readings have been largely stable. No chest pain, tightness, blurry vision or concerns reported. Progress of Wound: Progress: Today's session represents the 24TH treatment of a planned 30 sessions. Tolerance: Hyperbaric oxygen therapy was administered as per the facility's protocol. 100% oxygen at 2 KELLY for 90 minutes without air breaks. She tolerated hyperbaric oxygen therapy without any complaints or complications. Upon emergence from the chamber, her vitals remained stable and she was discharged in stable condition. Pre and post blood glucose readings as documented. Current encounter, 25 May 2023: Dong well overall. No ear pain, no SOB Subjective Subjective This is a 58-year-old female who continues to follow with the wound care center for right dorsal foot ulceration. She had previously undergone I&D on 02/10/2024 of the right foot. Continues to heal well and is changing outer dressing as needed leaving graft in place to Right foot. She is continuing to take oral antibiotic as instructed. Continues HBO dives following tube placement in ears and is doing well with this. Ulcer site continues improvement. Denies constitutional symptoms. Denies further complaints. Objective Data Objective Data Vital Signs: Vital Signs Temp Pulse Resp BP 97 F L 69 16 123/69 H 05/25/24 10:54 05/25/24 10:54 05/25/24 10:54 05/25/24 10:54 Lab / Micro Data Labs: Laboratory Results - last 24 hr 05/25/24 08:24: POC Glucose 202 H 05/25/24 10:43: POC Glucose 109 H Physical Exam Const alert, oriented x3 and no apparent distress General Appearance: cooperative HEENT normocephalic Eyes General Eye: normal appearance of both eyes Neck General: normal visual inspection Lymph Lymphatic: no lymphadenopathy noted and no lymphedema noted Resp normal respiratory effort Cardio regular rate and regular rhythm Extremity no calf tenderness and no pedal edema Extremity Narrative: Right lower extremity: Vascular: DP and PT pulses palpable with adequate capillary fill time to the digits. Normal temperature gradient. Hair growth is absent to the digits. Neurologic: Gross sensation intact. Absent protective sensation consistent with diabetic peripheral polyneuropathy Musculoskeletal: No pain to palpation about the ulcerative site secondary to diabetic peripheral polyneuropathy. There is a Charcot foot deformity noted of the right foot. No pain to palpation about the ulcerative site. Dermatologic: Incision site medial foot healed with cicatrix. No signs of infection. Incision site anterior leg with cicatrix proximally and distally. No signs of infection. There is a full thickness ulceration dorsally along the midfoot medial to the incision site with healthy granular tissue and some hypergranular tissue. Ulceration continues improvement with reduction in size. Ulceration site demonstrates no signs of infection. Skin no rashes or lesions noted and skin turgor normal Neuro moves all extremities Debridement Note Debridement Note Wound debrided: Right foot Laterality: Right Wound Grade/Stage: Gonzalez stage III Type of Debridement: Excisional debridement Anesthesia Used: 5% Lidocaine Gel Depth: Down to and including healthy tissue and in the subcutaneous layer Percentage of wound debrided: 100 Instrument Used: 7mm curette, #15 blade and Forceps Tissue Removed: Hypergranulation tissue, fibrous, devitalized subcutaneous, biofilm, slough Severity: Fat Layer Exposed Amount of bleeding with debridement: Moderate Bleeding Controlled with: Compression and gauze, Gel Foam and - (Electrocautery) Patient tolerated procedure: Patient tolerated procedure well Post-Debridement Measurements and Additional Note: Post-Debridement Measurements/Treatment - Nurse 1 - General Ulcer Assessment Start: 05/25/24 10:53 Freq: Status: Active Protocol: RUKHSANA Activity Type Activity Date Activity User E-sign Co-sign Detail Recorded Client Recorded Date Recorded By Document 05/25/24 10:54 DL [id number] 05/25/24 11:04 DL 05/25/24 10:54 - Today's Visit Information Type of service Follow-up Visit (Physician/RECYCLING OPERATIONS MANAGER ) Arrival Mode Ambulatory Transfer Assistance None Patient Identification Verified (Name & Yes ) Patient Requires Transmission-Based No Precautions Finger Stick Blood Sugar(mg/dl) (if 109 indicated): Blood Sugar Done During this Visit Vital Signs Temperature (97.8 F-99.1 F) 97 F L Temperature Source Temporal Pulse Rate (60-100) 69 Pulse Location Monitor Respiratory Rate (12-18) 16 Respiratory rate source Observation Blood Pressure (90/60-120/80) 123/69 H Blood Pressure Mean (mm Hg) 87 Source Monitor History Since Last Visit- (Skip if this is Patient's initial visit) Have you changed medications since your No last visit? Any new allergies or adverse reactions No Had a fall/change in ADL's that may No increase risk of falls Signs or symptoms of abuse and/or No neglect since last visit Have you been in the hospital since your No last visit? Has dressing in place as prescribed Yes Has compression in place as prescribed Yes Has offloadiing in place as prescribed Yes Experienced any changes in pain level or No management Pain Scale: 0-10 Numeric Is Patient Pain Free? Yes WC - Nurse 1 - General Ulcer Measurement Start: 05/25/24 10:53 Freq: Status: Active Protocol: Activity Type Activity Date Activity User E-sign Co-sign Detail Recorded Client Recorded Date Recorded By Document 05/25/24 10:54 DL [id number] 05/25/24 11:04 DL 05/25/24 10:54 Wound Center Nurse 1 #5 RDorsal/Anterior Ankle -Current Size (cm) - Length 3.5 -Current Size (cm) - Width 2.3 -Current Size (cm) - Depth 0.1 -Total Square Cm 8.05 -Photo Taken Yes -Exudate Amt Medium -Exudate Type Serosanguineous -Wound Margin Distinct, Outline Attached -Granulation Amt None Present (0 %) -Granulation Quality Hyper- granulation -Necrosis Amt Large (67-100%) -Necrotic Tissue Type Adherent Slough -Structure Exposed N/A -Texture (Marie-wound Skin Appearance) Scarring -Moisture (Marie-wound Skin Appearance) No Abnormality -Color (Marie-wound Skin Appearance) No Abnormality -Temperature (Marie-wound Skin No Abnormality Appearance) (Pt Warm) -Tenderness on Palpation (Marie-wound No Skin Appearance) -Ulcer Cleansing Soap and Water -Foul Odor after Cleansing No -Anesthetic Used 5% Lidocaine Gel ALISSA - Nurse 2 - General Ulcer CM Notes Start: 05/25/24 10:53 Freq: Status: Active Protocol: Activity Type Activity Date Activity User E-sign Co-sign Detail Recorded Client Recorded Date Recorded By Document 05/25/24 11:12 BM [id number] 05/25/24 11:47 [facility] 05/25/24 11:12 Wound Center Nurse 2 -Time 11:14 -Correct Patient Yes -Correct Side, Site, Position Yes -Correct Procedure Yes -Procedure Performed Yes -Type of Procedure Debridement -Clinical Debridement Subcutaneous -Tissue Removed Subcutaneous -Post Debridement (cm) - Length 3 -Post Debridement (cm) - Width 2.3 -Post Debridement (cm) - Depth 0.1 -Total Square (Post) (cm) 6.9 -Area of Debridement (cm) - Length 3 -Area of Debridement (cm) - Width 2.3 -Total Square (Area) (cm) 6.9 -Tunneling No -Undermining/Tunneling No -Circular Undermining No -Wound/Ulcer Outcome Not Healed -Ulcer Cleansing Rinsed/ Irrigated with Saline -Foul Odor after Cleansing No -Bioengineered Tissue No -Type of Bioengineered Tissue Epifix Mesh -Expiration Date 11/21/28 -Product Lot Number [id number] -Percent Used 100 -Lot number of Saline Used [id number] -Bleeding Controlled with Pressure, SURGIFOAM -Other Type of Bleeding Control bovie used -Treatment Response Procedure Tolerated Well -Debridement - Subq, 1st 20sq cm No -Apply Skin Sub - 1st 25 sq cm - Feet 1 -Epifix Mesh (per sq cm) 11 Pain Scale: 0-10 Numeric Is Patient Pain Free? Yes WC - Nurse 3 - General Ulcer D/C NN Start: 05/25/24 10:53 Freq: Status: Active Protocol: Activity Type Activity Date Activity User E-sign Co-sign Detail Recorded Client Recorded Date Recorded By Document 05/25/24 11:55 DL [id number] 05/25/24 11:57 DL 05/25/24 11:55 Wound Care Center Nurse 3 #5 RDorsal/Anterior Ankle -Foul Odor after Cleansing No -Primary Dressing Applied Aquacel Extra, Surgifoam -Other Dressing Epimesh -Primary Dressing Covered/Secured with Dry Gauze & Roll Gauze, Secured with Tape -Aquacel Extra 1 -Surgifoam 12-7mm (3/4 x 2 3/8) 2 -Wound Comment(s) Bovie used today per Dr. Lewis. Right -Compression Wrap Sebastian Wrap Treatment Response Procedure Tolerated Well Pain Scale: 0-10 Numeric Is Patient Pain Free? Yes WC - Visit Discharge Discharge Condition Stable Ambulatory Status Ambulatory Transportation Private Auto Facility Type Home Health Orders Sent Yes Assessment/Plan Assessment/Plan (1) Non-pressure chronic ulcer of other part of right foot with fat layer exposed: CODE(S): L97.512 - Non-pressure chronic ulcer of other part of right foot with fat layer exposed (2) Type 2 diabetes mellitus with diabetic polyneuropathy: CODE(S): E11.42 - Type 2 diabetes mellitus with diabetic polyneuropathy QUALIFIERS: Diabetes mellitus bed bug exterminator insulin use: with fpc use Qualified Code(s): E11.42 - Type 2 diabetes mellitus with diabetic polyneuropathy; Z79.4 - correction (current) use of insulin (3) Charcot's joint of right foot: CODE(S): M14.671 - Charcot's joint, right ankle and foot (4) Type 2 diabetes mellitus with foot ulcer: CODE(S): E11.621 - Type 2 diabetes mellitus with foot ulcer; L97.509 - Non-pressure chronic ulcer of other part of unspecified foot with unspecified severity QUALIFIERS: Diabetes mellitus bed bug exterminator insulin use: with fpc use Qualified Code(s): E11.621 - Type 2 diabetes mellitus with foot ulcer; L97.509 - Non-pressure chronic ulcer of other part of unspecified foot with unspecified severity; Z79.4 - correction (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 DOS 02/10/2024, POD #105 Cicatrix at incision sites medial foot and anterior leg with no signs of infection. Ulceration dorsal foot continues granulating in well versus her previous visit. She continues healing well at this time and has resumed HBO dives with temporary pause until next week due to needing tube placement. Ulceration predebridement measures 2.9 cm x 2.2 cm x 0.1 cm Ulceration did undergo debridement as noted on clinical panel above. Chemical (34619) and electro-cauterization was performed of the hypergranular tissue. Postdebridement measurements 3.0 cm x 2.3 cm x 0.1 cm. EpiFix #9 applied to the ulcerative bed and dressed with Adaptic touch and anchored with Steri-Strips. Dry sterile dressing applied to site with Tubigrip compression. She was instructed to not get the site wet and utilize cast bag when showering. She is understanding of this. She may change outer dressings as needed. Ulceration continues reduction in size. She has been approved for EpiFix, will continue application. Has finished oral antibiotic doxycycline 100 mg twice daily and Augmentin 875mg daily. Will be permitted to continue protective weightbearing to the right lower extremity in CAM boot. Previously discussed medical clearance for HBO and she has been cleared by Dr. Howard. She will continue HBO dives as this is essential to her healing. She has had previous lab work drawn while in hospital 03/08/2024 [facility]. Did have chest x-ray during her hospital stay in January 2024 along with echocardiogram. Did undergo EKG for evaluation prior to dive. HgbA1c during hospital admission was 11.3% on 02/15/2024. Sugars have been well controlled following approval of insulin on new insurance. I do expect her A1c to continue to decrease. PICC removed 03/31/24. Following with ID. The following work up and care recommendations were made: Dressing: EpiFix, Adaptic touch, Steri-Strips, dry sterile dressing right foot Wash: Do not get wet Tissue growth optimization: EpiFix Offload: Nonweightbearing to the right lower extremity Vascular: DP and PT pulses palpable with adequate capillary fill time. Vascular status not impacting healing at this time. Edema: Edema well-controlled. Will continue with Tubigrip stocking application Infection: No signs of infection. Currently on IV antibiotics via PICC line. Will continue daptomycin and Unasyn per ID Pain: No pain to the ulcerative site secondary to diabetic peripheral polyneuropathy Host factors: DM type II with peripheral polyneuropathy, uncontrolled. Charcot foot right foot At this time prognosis is good and she continues healing well. Will continue HBO therapy as this is aiding in wound healing. I answered all the patient's questions. To return to the wound healing center in 1 week or call sooner if the patient has any questions or concerns.
[2024-05-26 08:43] LABS: Bedside Glucose 172 mg/dL (74-106)
[2024-05-26 10:30] VITALS: BP 112/73; BP 118/73; PULSE 73; PULSE 86; RESP 14; RESP 16; TEMP 36.1
[2024-05-26 10:55] LABS: Bedside Glucose 112 mg/dL (74-106)
--- NOTE | 2024-05-26 14:10 | PCM.HBO.PN ---
History of Present Illness Date of Service: 05/26/24 Chief Complaint: HBO recertification History of Wound: Ms. Falk is a 58-year-old currently being seen at the wound center for right foot/ankle ulcer. Since her initial certification, has had 23 sessions of hyperbaric oxygen therapy which she has tolerated well and there has been corresponding significant improvement in ulcer. 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 Blood glucose readings have been largely stable. No chest pain, tightness, blurry vision or concerns reported. Progress of Wound: Progress: Today's session represents the 24TH treatment of a planned 30 sessions. Tolerance: Hyperbaric oxygen therapy was administered as per the facility's protocol. 100% oxygen at 2 KELLY for 90 minutes without air breaks. She tolerated hyperbaric oxygen therapy without any complaints or complications. Upon emergence from the chamber, her vitals remained stable and she was discharged in stable condition. Pre and post blood glucose readings as documented. Current encounter, 26 May 2023: Dong well overall. No ear pain, no SOB Objective Data Objective Data Vital Signs: Vital Signs Temp Pulse Resp BP 97 F L 86 16 112/73 05/26/24 10:30 05/26/24 10:30 05/26/24 10:30 05/26/24 10:30 Lab / Micro Data Labs: Laboratory Results - last 24 hr 05/26/24 08:26: POC Glucose 172 H 05/26/24 10:36: POC Glucose 112 H Exam Physical Exam Const alert, oriented x3 and no apparent distress HEENT HEENT Narrative: tympanostomy tubes present bilaterally and patent Psych mental status grossly normal, thought process normal, cooperative, affect normal and speech normal Nursing Assessment and Debridement Post-Debridement Measurements and Additional Note: Post-Debridement Measurements/Treatment WC - Nurse 1 - General Ulcer Assessment Start: 05/25/24 10:53 Freq: Status: Active Protocol: RUKHSANA Activity Type Activity Date Activity User E-sign Co-sign Detail Recorded Client Recorded Date Recorded By Document 05/25/24 10:54 DL [id number] 05/25/24 11:04 DL 05/25/24 10:54 - Today's Visit Information Type of service Follow-up Visit (Physician/ALCOHOL STILL OPERATOR ) Arrival Mode Ambulatory Transfer Assistance None Patient Identification Verified (Name & Yes ) Patient Requires Transmission-Based No Precautions Finger Stick Blood Sugar(mg/dl) (if 109 indicated): Blood Sugar Done During this Visit Vital Signs Temperature (97.8 F-99.1 F) 97 F L Temperature Source Temporal Pulse Rate (60-100) 69 Pulse Location Monitor Respiratory Rate (12-18) 16 Respiratory rate source Observation Blood Pressure (90/60-120/80) 123/69 H Blood Pressure Mean (mm Hg) 87 Source Monitor History Since Last Visit- (Skip if this is Patient's initial visit) Have you changed medications since your No last visit? Any new allergies or adverse reactions No Had a fall/change in ADL's that may No increase risk of falls Signs or symptoms of abuse and/or No neglect since last visit Have you been in the hospital since your No last visit? Has dressing in place as prescribed Yes Has compression in place as prescribed Yes Has offloadiing in place as prescribed Yes Experienced any changes in pain level or No management Pain Scale: 0-10 Numeric Is Patient Pain Free? Yes WC - Nurse 1 - General Ulcer Measurement Start: 05/25/24 10:53 Freq: Status: Active Protocol: Activity Type Activity Date Activity User E-sign Co-sign Detail Recorded Client Recorded Date Recorded By Document 05/25/24 10:54 DL [id number] 05/25/24 11:04 DL 05/25/24 10:54 Wound Center Nurse 1 #5 RDorsal/Anterior Ankle -Current Size (cm) - Length 3.5 -Current Size (cm) - Width 2.3 -Current Size (cm) - Depth 0.1 -Total Square Cm 8.05 -Photo Taken Yes -Exudate Amt Medium -Exudate Type Serosanguineous -Wound Margin Distinct, Outline Attached -Granulation Amt None Present (0 %) -Granulation Quality Hyper- granulation -Necrosis Amt Large (67-100%) -Necrotic Tissue Type Adherent Slough -Structure Exposed N/A -Texture (Marie-wound Skin Appearance) Scarring -Moisture (Marie-wound Skin Appearance) No Abnormality -Color (Marie-wound Skin Appearance) No Abnormality -Temperature (Marie-wound Skin No Abnormality Appearance) (Pt Warm) -Tenderness on Palpation (Marie-wound No Skin Appearance) -Ulcer Cleansing Soap and Water -Foul Odor after Cleansing No -Anesthetic Used 5% Lidocaine Gel WC - Nurse 2 - General Ulcer CM Notes Start: 05/25/24 10:53 Freq: Status: Active Protocol: Activity Type Activity Date Activity User E-sign Co-sign Detail Recorded Client Recorded Date Recorded By Document 05/25/24 11:12 [facility] [id number] 05/25/24 11:47 [facility] 05/25/24 11:12 Wound Center Nurse 2 -Time 11:14 -Correct Patient Yes -Correct Side, Site, Position Yes -Correct Procedure Yes -Procedure Performed Yes -Type of Procedure Debridement -Clinical Debridement Subcutaneous -Tissue Removed Subcutaneous -Post Debridement (cm) - Length 3 -Post Debridement (cm) - Width 2.3 -Post Debridement (cm) - Depth 0.1 -Total Square (Post) (cm) 6.9 -Area of Debridement (cm) - Length 3 -Area of Debridement (cm) - Width 2.3 -Total Square (Area) (cm) 6.9 -Tunneling No -Undermining/Tunneling No -Circular Undermining No -Wound/Ulcer Outcome Not Healed -Ulcer Cleansing Rinsed/ Irrigated with Saline -Foul Odor after Cleansing No -Bioengineered Tissue No -Type of Bioengineered Tissue Epifix Mesh -Expiration Date 11/21/28 -Product Lot Number [id number] -Percent Used 100 -Lot number of Saline Used [id number] -Bleeding Controlled with Pressure, SURGIFOAM -Other Type of Bleeding Control bovie used -Treatment Response Procedure Tolerated Well -Debridement - Subq, 1st 20sq cm No -Apply Skin Sub - 1st 25 sq cm - Feet 1 -Epifix Mesh (per sq cm) 11 Pain Scale: 0-10 Numeric Is Patient Pain Free? Yes - Nurse 3 - General Ulcer D/C NN Start: 05/25/24 10:53 Freq: Status: Active Protocol: Activity Type Activity Date Activity User E-sign Co-sign Detail Recorded Client Recorded Date Recorded By Document 05/25/24 11:55 DL [id number] 05/25/24 11:57 DL 05/25/24 11:55 Wound Care Center Nurse 3 #5 RDorsal/Anterior Ankle -Foul Odor after Cleansing No -Primary Dressing Applied Aquacel Extra, Surgifoam -Other Dressing Epimesh -Primary Dressing Covered/Secured with Dry Gauze & Roll Gauze, Secured with Tape -Aquacel Extra 1 -Surgifoam 12-7mm (3/4 x 2 3/8) 2 -Wound Comment(s) Hosea used today per Dr. Lewis. Right -Compression Wrap Sebastian Wrap Treatment Response Procedure Tolerated Well Pain Scale: 0-10 Numeric Is Patient Pain Free? Yes WC - Visit Discharge Discharge Condition Stable Ambulatory Status Ambulatory Transportation Private [facility] Facility Type Home Health Orders Sent Yes Assessment/Plan Assessment/Plan (1) Type 2 diabetes mellitus with foot ulcer: CODE(S): E11.621 - Type 2 diabetes mellitus with foot ulcer; L97.509 - Non-pressure chronic ulcer of other part of unspecified foot with unspecified severity QUALIFIERS: Diabetes mellitus penitentiary insulin use: with terminal computer operator use Qualified Code(s): E11.621 - Type 2 diabetes mellitus with foot ulcer; L97.509 - Non-pressure chronic ulcer of other part of unspecified foot with unspecified severity; Z79.4 - middle or intermediate school principal (current) use of insulin (2) Non-pressure chronic ulcer of other part of right foot with fat layer exposed: CODE(S): L97.512 - Non-pressure chronic ulcer of other part of right foot with fat layer exposed (3) Type 2 diabetes mellitus with diabetic polyneuropathy: CODE(S): E11.42 - Type 2 diabetes mellitus with diabetic polyneuropathy QUALIFIERS: Diabetes mellitus penitentiary insulin use: with terminal computer operator use Qualified Code(s): E11.42 - Type 2 diabetes mellitus with diabetic polyneuropathy; Z79.4 - penitentiary (current) use of insulin (4) Charcot's joint of right foot: CODE(S): M14.671 - Charcot's joint, right ankle and foot PLAN: Plan The patient appears to be tolerating hyperbaric oxygen therapy well, which will be continued as per their medical treatment plan.
--- NOTE | 2024-05-29 11:18 | WC ---
PHOTO 05/25/24 RIGHT DORSAL FOOT
[2024-05-30 08:50] LABS: Bedside Glucose 213 mg/dL (74-106)
--- NOTE | 2024-05-30 10:02 | PCM.HBO.PN ---
History of Present Illness Date of Service: 05/30/24 Chief Complaint: HBO recertification History of Wound: Ms. Falk is a 58-year-old currently being seen at the wound center for right foot/ankle ulcer. Since her initial certification, has had 23 sessions of hyperbaric oxygen therapy which she has tolerated well and there has been corresponding significant improvement in ulcer. 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 Blood glucose readings have been largely stable. No chest pain, tightness, blurry vision or concerns reported. Progress of Wound: Progress: Today's session represents the 25th treatment of a planned 30 sessions. Tolerance: Hyperbaric oxygen therapy was administered as per the facility's protocol. 100% oxygen at 2 KELLY for 90 minutes without air breaks. She tolerated hyperbaric oxygen therapy without any complaints or complications. Upon emergence from the chamber, her vitals remained stable and she was discharged in stable condition. Pre and post blood glucose readings as documented. Objective Data Objective Data Vital Signs: Vital Signs Temp Pulse Resp BP 97 F L 86 16 112/73 05/26/24 10:30 05/26/24 10:30 05/26/24 10:30 05/26/24 10:30 Lab / Micro Data Labs: Laboratory Results - last 24 hr 05/30/24 08:22: POC Glucose 213 H Exam Physical Exam Const alert and oriented x3 General Appearance: cooperative HEENT normocephalic HEENT Narrative: Bilateral Tympanostomy tubes in place. Eyes General Eye: normal appearance of both eyes Resp normal respiratory effort, no use of accessory muscles and clear to auscultation bilaterally Effort and Inspection: able to speak in complete sentences Cardio regular rate and regular rhythm Palpation: normal PMI Psych affect normal Charges/Coding Wound Center CF Procedures HBO Supervision: [id number] Hyperbaric Oxygen; supervision Assessment/Plan Assessment/Plan (1) Type 2 diabetes mellitus with foot ulcer: CODE(S): E11.621 - Type 2 diabetes mellitus with foot ulcer; L97.509 - Non-pressure chronic ulcer of other part of unspecified foot with unspecified severity QUALIFIERS: Diabetes mellitus dedicated intermodal truck driver insulin use: with [facility]p use Qualified Code(s): E11.621 - Type 2 diabetes mellitus with foot ulcer; L97.509 - Non-pressure chronic ulcer of other part of unspecified foot with unspecified severity; Z79.4 - [facility] (current) use of insulin (2) Non-pressure chronic ulcer of other part of right foot with fat layer exposed: CODE(S): L97.512 - Non-pressure chronic ulcer of other part of right foot with fat layer exposed (3) Type 2 diabetes mellitus with diabetic polyneuropathy: CODE(S): E11.42 - Type 2 diabetes mellitus with diabetic polyneuropathy QUALIFIERS: Diabetes mellitus dedicated intermodal truck driver insulin use: with dedicated intermodal truck driver use Qualified Code(s): E11.42 - Type 2 diabetes mellitus with diabetic polyneuropathy; Z79.4 - [facility] (current) use of insulin (4) Charcot's joint of right foot: CODE(S): M14.671 - Charcot's joint, right ankle and foot PLAN: Plan The patient appears to be tolerating hyperbaric oxygen therapy well, which will be continued as per their medical treatment plan.
[2024-05-30 10:51] LABS: Bedside Glucose 121 mg/dL (74-106)
[2024-05-30 11:59] VITALS: BP 109/70; BP 123/70; PULSE 83; PULSE 89; RESP 15; RESP 16; TEMP 36.1; TEMP 36.2
[2024-05-31 08:48] LABS: Bedside Glucose 163 mg/dL (74-106)
[2024-05-31 09:17] VITALS: BP 110/65; BP 111/65; PULSE 71; PULSE 84; RESP 16; TEMP 36.3; TEMP 36.4
--- NOTE | 2024-05-31 09:49 | HBO.PN.PCM_ITS ---
History of Present Illness Date of Service: 05/31/24 Chief Complaint: HBO recertification History of Wound: Ms. Falk is a 58-year-old currently being seen at the wound center for right foot/ankle ulcer. Since her initial certification, has had 23 sessions of hyperbaric oxygen therapy which she has tolerated well and there has been corresponding significant improvement in ulcer. 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 Blood glucose readings have been largely stable. No chest pain, tightness, blurry vision or concerns reported. Progress of Wound: Progress: Today's session represents the 26th treatment of a planned 30 sessions. Tolerance: Hyperbaric oxygen therapy was administered as per the facility's protocol. 100% oxygen at 2 KELLY for 90 minutes without air breaks. She tolerated hyperbaric oxygen therapy without any complaints or complications. Upon emergence from the chamber, her vitals remained stable and she was discharged in stable condition. Pre and post blood glucose readings as documented. Objective Data Objective Data Vital Signs: Vital Signs Temp Pulse Resp BP 96.9 F L 89 15 123/70 H 05/30/24 11:59 05/30/24 11:59 05/30/24 11:59 05/30/24 11:59 Lab / Micro Data Labs: Laboratory Results - last 24 hr 05/30/24 10:34: POC Glucose 121 H 05/31/24 08:30: POC Glucose 163 H Exam Physical Exam Const alert and oriented x3 General Appearance: cooperative HEENT normocephalic HEENT Narrative: Bilateral Tympanostomy tubes in place. Eyes General Eye: normal appearance of both eyes Resp normal respiratory effort, no use of accessory muscles and clear to auscultation bilaterally Effort and Inspection: able to speak in complete sentences Cardio regular rate and regular rhythm Palpation: normal PMI Psych affect normal Charges/Coding Wound Center CF Procedures HBO Supervision: [id number] Hyperbaric Oxygen; supervision Assessment/Plan Assessment/Plan (1) Type 2 diabetes mellitus with foot ulcer: CODE(S): E11.621 - Type 2 diabetes mellitus with foot ulcer; L97.509 - Non-pressure chronic ulcer of other part of unspecified foot with unspecified severity QUALIFIERS: Diabetes mellitus watermaster insulin use: with watermaster use Qualified Code(s): E11.621 - Type 2 diabetes mellitus with foot ulcer; L97.509 - Non-pressure chronic ulcer of other part of unspecified foot with unspecified severity; Z79.4 - [facility] (current) use of insulin (2) Non-pressure chronic 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: CODE(S): L97.512 - Non-pressure chronic ulcer of other part of right foot with fat layer exposed (3) Type 2 diabetes mellitus with diabetic polyneuropathy: CODE(S): E11.42 - Type 2 diabetes mellitus with diabetic polyneuropathy QUALIFIERS: Diabetes mellitus usp insulin use: with usp use Qualified Code(s): E11.42 - Type 2 diabetes mellitus with diabetic polyneuropathy; Z79.4 - intermodal customer service (current) use of insulin (4) Charcot's joint of right foot: CODE(S): M14.671 - Charcot's joint, right ankle and foot PLAN: Plan The patient appears to be tolerating hyperbaric oxygen therapy well, which will be continued as per their medical treatment plan.
[2024-05-31 10:59] LABS: Bedside Glucose 94 mg/dL (74-106)
[2024-06-01 08:36] LABS: Bedside Glucose 164 mg/dL (74-106)
--- NOTE | 2024-06-01 10:13 | PCM.HBO.PN ---
History of Present Illness Date of Service: 06/01/24 Chief Complaint: HBO History of Wound: Ms. Falk is a 58-year-old currently being seen at the wound center for right foot/ankle ulcer. Since her initial certification, has had 23 sessions of hyperbaric oxygen therapy which she has tolerated well and there has been corresponding significant improvement in ulcer. 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 Blood glucose readings have been largely stable. No chest pain, tightness, blurry vision or concerns reported. Progress of Wound: Progress: Today's session represents the 27th session of 30 planned sessions. Tolerance: Hyperbaric oxygen therapy was administered as per the facility's protocol. 100% oxygen at 2 KELLY for 90 minutes without air breaks. She tolerated hyperbaric oxygen therapy without any complaints or complications. Upon emergence from the chamber, her vitals remained stable and she was discharged in stable condition. Pre and post blood glucose readings as documented. Objective Data Objective Data Vital Signs: Vital Signs Temp Pulse Resp BP 97.5 F L 84 16 111/65 05/31/24 09:17 05/31/24 09:17 05/31/24 09:17 05/31/24 09:17 Lab / Micro Data Labs: Laboratory Results - last 24 hr 05/31/24 10:39: POC Glucose 94 06/01/24 08:18: POC Glucose 164 H Exam Physical Exam Const alert, oriented x3 and no apparent distress General Appearance: cooperative, comfortable and well kempt HEENT normocephalic, head/scalp atraumatic and hearing grossly normal bilaterally Eyes EOMs intact bilaterally Neck full ROM General: normal visual inspection Resp normal respiratory effort Effort and Inspection: able to speak in complete sentences Neuro oriented x3 and CN's II-XII intact bilaterally Psych mental status grossly normal, thought process normal, cooperative and affect normal Charges/Coding Wound Center CF Procedures HBO Supervision: [id number] Hyperbaric Oxygen; supervision Assessment/Plan Assessment/Plan (1) Type 2 diabetes mellitus with foot ulcer: CODE(S): E11.621 - Type 2 diabetes mellitus with foot ulcer; L97.509 - Non-pressure chronic ulcer of other part of unspecified foot with unspecified severity QUALIFIERS: Diabetes mellitus correction insulin use: with truck terminal manager use Qualified Code(s): E11.621 - Type 2 diabetes mellitus with foot ulcer; L97.509 - Non-pressure chronic ulcer of other part of unspecified foot with unspecified severity; Z79.4 - buttermaker 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 [employer] (current) use of insulin (2) Non-pressure chronic ulcer of other part of right foot with fat layer exposed: CODE(S): L97.512 - Non-pressure chronic ulcer of other part of right foot with fat layer exposed (3) Type 2 diabetes mellitus with diabetic polyneuropathy: CODE(S): E11.42 - Type 2 diabetes mellitus with diabetic polyneuropathy QUALIFIERS: Diabetes mellitus truck terminal manager insulin use: with truck terminal manager use Qualified Code(s): E11.42 - Type 2 diabetes mellitus with diabetic polyneuropathy; Z79.4 - [facility] (current) use of insulin (4) Charcot's joint of right foot: CODE(S): M14.671 - Charcot's joint, right ankle and foot PLAN: Plan Phylicia tolerated hyperbaric oxygen therapy well which will be continued per her medical plan. This note was generated with [employer] software. It may contain incorrect words, spelling, and punctuation that were not noted in checking the note before signing.
[2024-06-01 10:56] LABS: Bedside Glucose 118 mg/dL (74-106)
[2024-06-01 11:05] VITALS: BP 133/77; PULSE 77; RESP 18; TEMP 35.8
[2024-06-01 11:20] VITALS: BP 115/63; BP 133/77; PULSE 70; PULSE 77; RESP 15; TEMP 35.8; TEMP 36.1
--- NOTE | 2024-06-01 12:42 | PN.PCM_ITS ---
History of Present Illness Date of Service: 06/01/24 Chief Complaint: HBO recertification History of Wound: Ms. Falk is a 58-year-old currently being seen at the wound center for right foot/ankle ulcer. Since her initial certification, has had 23 sessions of hyperbaric oxygen therapy which she has tolerated well and there has been corresponding significant improvement in ulcer. 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 Blood glucose readings have been largely stable. No chest pain, tightness, blurry vision or concerns reported. Progress of Wound: Progress: Today's session represents the 27th session of 30 planned sessions. Tolerance: Hyperbaric oxygen therapy was administered as per the facility's protocol. 100% oxygen at 2 KELLY for 90 minutes without air breaks. She tolerated hyperbaric oxygen therapy without any complaints or complications. Upon emergence from the chamber, her vitals remained stable and she was discharged in stable condition. Pre and post blood glucose readings as documented. Subjective Subjective This is a 58-year-old female who continues to follow with the wound care center for right dorsal foot ulceration. She had previously undergone I&D on 02/10/2024 of the right foot. Continues to heal well and is changing outer dressing as needed leaving graft in place to Right foot. She finished oral antibiotic. Continues HBO dives following tube placement in ears and is doing well with this. Ulcer site continues improvement. Denies constitutional symptoms. Denies further complaints. Objective Data Objective Data Vital Signs: Vital Signs Temp Pulse Resp BP 96.5 F L 77 15 133/77 H 06/01/24 11:20 06/01/24 11:20 06/01/24 11:20 06/01/24 11:20 Lab / Micro Data Labs: Laboratory Results - last 24 hr 06/01/24 08:18: POC Glucose 164 H 06/01/24 10:39: POC Glucose 118 H Physical Exam Const alert, oriented x3 and no apparent distress General Appearance: cooperative HEENT normocephalic Eyes General Eye: normal appearance of both eyes Neck General: normal visual inspection Lymph Lymphatic: no lymphadenopathy noted and no lymphedema noted Resp normal respiratory effort Cardio regular rate and regular rhythm Extremity no calf tenderness and no pedal edema Extremity Narrative: Right lower extremity: Vascular: DP and PT pulses palpable with adequate capillary fill time to the digits. Normal temperature gradient. Hair growth is absent to the digits. Neurologic: Gross sensation intact. Absent protective sensation consistent with diabetic peripheral polyneuropathy Musculoskeletal: No pain to palpation about the ulcerative site secondary to diabetic peripheral polyneuropathy. There is a Charcot foot deformity noted of the right foot. No pain to palpation about the ulcerative site. Dermatologic: Incision site medial foot healed with cicatrix. No signs of infection. Incision site anterior leg with cicatrix proximally and distally. No signs of infection. There is a full thickness ulceration dorsally along the midfoot medial to the incision site with healthy granular tissue and some hypergranular tissue. Ulceration continues improvement with reduction in size. Ulceration site demonstrates no signs of infection. Skin no rashes or lesions noted and skin turgor normal Neuro moves all extremities Debridement Note Debridement Note Wound debrided: Right foot Laterality: Right Wound Grade/Stage: Gonzalez stage III Type of Debridement: Excisional debridement Anesthesia Used: 5% Lidocaine Gel Depth: Down to and including healthy tissue and in the subcutaneous layer Percentage of wound debrided: 100 Instrument Used: 7mm curette Tissue Removed: Fibrous, devitalized subcutaneous, biofilm, slough Severity: Fat Layer Exposed Amount of bleeding with debridement: Mild Bleeding Controlled with: Compression and gauze and Silver Nitrate Patient tolerated procedure: Patient tolerated procedure well Post-Debridement Measurements and Additional Note: Post-Debridement Measurements/Treatment - Nurse 1 - General Ulcer Assessment Start: 05/25/24 10:53 Freq: Status: Active Protocol: [email or web address] Activity Type Activity Date Activity User E-sign Co-sign Detail Recorded Client Recorded Date Recorded By Document 05/25/24 10:54 DL [id number] 05/25/24 11:04 DL Document 06/01/24 11:05 RB [id number] 06/01/24 11:08 RB 05/25/24 06/01/24 10:54 11:05 - Today's Visit Information Type of service Follow-up Visit Follow-up Visit (Physician/BUSINESS TRAVEL CONSULTANT (Physician/BUSINESS TRAVEL CONSULTANT ) ) Arrival Mode Ambulatory Ambulatory Transfer Assistance None None Patient Identification Verified (Name & Yes Yes ) Patient Requires Transmission-Based No No Precautions Finger Stick Blood Sugar(mg/dl) (if 109 121 indicated): Blood Sugar Done During Done During this Visit this Visit Vital Signs Temperature (97.8 F-99.1 F) 97 F L 96.5 F L Temperature Source Temporal Temporal Pulse Rate (60-100) 69 77 Pulse Location Monitor Monitor Respiratory Rate (12-18) 16 18 Respiratory rate source Observation Observation Blood Pressure (90/60-120/80) 123/69 H 133/77 H Blood Pressure Mean (mm Hg) 87 95 Source Monitor Monitor Position Semi-Fowlers Blood Pressure Location Left Arm History Since Last Visit- (Skip if this is Patient's initial visit) Have you changed medications since your No No last visit? Any new allergies or adverse reactions No No Had a fall/change in ADL's that may No No increase risk of falls Signs or symptoms of abuse and/or No No neglect since last visit Have you been in the hospital since your No No last visit? Has dressing in place as prescribed Yes Yes Has compression in place as prescribed Yes Yes Has offloadiing in place as prescribed Yes Yes Experienced any changes in pain level or No No management Left Footwear Regular Shoe Right Footwear Removable Cast Walker/Walking Boot Pain Scale: 0-10 Numeric Is Patient Pain Free? Yes No RLE -Description Aching -Intensity 6 -Duration (hours) Acute -Pain Behavior Irritability -Pain Aggravating Factors ADL's -Alleviating Factors/Interventions Medication -Effectiveness of Alleviating Factor/ Moderately Intervention effective WC - Nurse 1 - General Ulcer Measurement Start: 05/25/24 10:53 Freq: Status: Active Protocol: Activity Type Activity Date Activity User E-sign Co-sign Detail Recorded Client Recorded Date Recorded By Document 05/25/24 10:54 DL [id number] 05/25/24 11:04 DL Document 06/01/24 11:05 RB [id number] 06/01/24 11:08 RB 05/25/24 06/01/24 10:54 11:05 Wound Center Nurse 1 #5 RDorsal/Anterior Ankle -Combined with other wound No -Current Size (cm) - Length 3.5 3.5 -Current Size (cm) - Width 2.3 2 -Current Size (cm) - Depth 0.1 0.1 -Total Square Cm 8.05 7.0 -Photo Taken Yes Yes -Tunneling No -Undermining/Tunneling No -Circular Undermining No -Exudate Amt Medium Large -Exudate Type Serosanguineous Serosanguineous -Wound Margin Distinct, Flat & Intact Outline Attached -Granulation Amt None Present (0 Small (1-33%) %) -Granulation Quality Hyper- [place] granulation -Slough/Fibrin Yes -Necrosis Amt Large (67-100%) Large (67-100%) -Necrotic Tissue Type Adherent Slough Adherent Slough -Structure Exposed N/A N/A -Texture (Marie-wound Skin Appearance) Scarring Assessed -Moisture (Marie-wound Skin Appearance) No Abnormality Maceration -Color (Marie-wound Skin Appearance) No Abnormality Assessed -Temperature (Marie-wound Skin No Abnormality No Abnormality Appearance) (Pt Warm) (Pt Warm) -Tenderness on Palpation (Marie-wound No Skin Appearance) -Ulcer Cleansing Soap and Water Wound Cleanser -Foul Odor after Cleansing No No -Anesthetic Used 5% Lidocaine 5% Lidocaine Gel Gel Lower Limb Edema Present Yes Left Calf (cm) 34.5 Left Ankle (cm) 22 WC - Nurse 2 - General Ulcer CM Notes Start: 05/25/24 10:53 Freq: Status: Active Protocol: Activity Type Activity Date Activity User E-sign Co-sign Detail Recorded Client Recorded Date Recorded By Document 05/25/24 11:12 [facility] [id number] 05/25/24 11:47 [facility] Document 06/01/24 11:16 [facility] [id number] 06/01/24 11:33 [facility] 05/25/24 06/01/24 11:12 11:16 Wound Center Nurse 2 #5 RDorsal/Anterior Ankle -Time 11:14 11:16 -Correct Patient Yes Yes -Correct Side, Site, Position Yes Yes -Correct Procedure Yes Yes -Procedure Performed Yes Yes -Type of Procedure Debridement Debridement -Clinical Debridement Subcutaneous Subcutaneous -Tissue Removed Subcutaneous Subcutaneous -Post Debridement (cm) - Length 3 3 -Post Debridement (cm) - Width 2.3 1.8 -Post Debridement (cm) - Depth 0.1 0.1 -Total Square (Post) (cm) 6.9 5.4 -Area of Debridement (cm) - Length 3 3 -Area of Debridement (cm) - Width 2.3 1.8 -Total Square (Area) (cm) 6.9 5.4 -Tunneling No No -Undermining/Tunneling No No -Circular Undermining No No -Wound/Ulcer Outcome Not Healed Not Healed -Ulcer Cleansing Rinsed/ Rinsed/ Irrigated with Irrigated with Saline Saline -Foul Odor after Cleansing No No -Bioengineered Tissue No Yes -Type of Bioengineered Tissue Epifix Mesh Epifix Mesh -Expiration Date 11/21/28 11/21/28 -Product Lot Number [id number] -Percent Used 100 100 -Lot number of Saline Used [id number] -Bleeding Controlled with Pressure, Pressure,Silver SURGIFOAM Nitrate -Other Type of Bleeding Control bovie used -Treatment Response Procedure Procedure Tolerated Well Tolerated Well -Offloading Yes -Type of Offloading Camwalker -Debridement - Subq, 1st 20sq cm No No -Apply Skin Sub - 1st 25 sq cm - Feet 1 1 -Epifix Mesh (per sq cm) 11 11 Pain Scale: 0-10 Numeric Is Patient Pain Free? Yes Yes - Nurse 3 - General Ulcer D/C NN Start: 05/25/24 10:53 Freq: Status: Active Protocol: Activity Type Activity Date Activity User E-sign Co-sign Detail Recorded Client Recorded Date Recorded By Document 05/25/24 11:55 DL [id number] 05/25/24 11:57 DL Document 06/01/24 11:42 KW [id number] 06/01/24 11:48 KW 05/25/24 06/01/24 11:55 11:42 Wound Care Center Nurse 3 #5 RDorsal/Anterior Ankle -Foul Odor after Cleansing No -Primary Dressing Applied Aquacel Extra, Aquacel Extra Surgifoam -Other Dressing Epimesh -Primary Dressing Covered/Secured with Dry Gauze & Dry Gauze & Roll Gauze, Roll Gauze, Secured with Secured with Tape Tape -Aquacel Extra 1 1 -Surgifoam 12-7mm (3/4 x 2 3/8) 2 -Wound Comment(s) Bovie used today per Dr. Lewis. Right -Compression Wrap Sebastian Wrap Sebastian Wrap Treatment Response Procedure Tolerated Well Pain Scale: 0-10 Numeric Is Patient Pain Free? Yes Yes - Visit Discharge Discharge Condition Stable Stable Ambulatory Status Ambulatory Ambulatory Transportation Private Auto Private Auto Medication Reconcilliation completed & No provided to patient/care provider Clinical Summary of Care Provided Yes Facility Type Home Health Orders Sent Yes Assessment/Plan Assessment/Plan (1) Non-pressure chronic ulcer of other part of right foot with fat layer exposed: CODE(S): L97.512 - Non-pressure chronic ulcer of other part of right foot with fat layer exposed (2) Type 2 diabetes mellitus with diabetic polyneuropathy: CODE(S): E11.42 - Type 2 diabetes mellitus with diabetic polyneuropathy QUALIFIERS: Diabetes mellitus supply chain planner insulin use: with supply chain planner use Qualified Code(s): E11.42 - Type 2 diabetes mellitus with diabetic polyneuropathy; 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 (3) Charcot's joint of right foot: CODE(S): M14.671 - Charcot's joint, right ankle and foot (4) Type 2 diabetes mellitus with foot ulcer: CODE(S): E11.621 - Type 2 diabetes mellitus with foot ulcer; L97.509 - Non-pressure chronic ulcer of other part of unspecified foot with unspecified severity QUALIFIERS: Diabetes mellitus supply chain planner insulin use: with [facility] use Qualified Code(s): E11.621 - Type 2 diabetes mellitus with foot ulcer; L97.509 - Non-pressure chronic ulcer of other part of unspecified foot with unspecified severity; 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 DOS 02/10/2024, POD #112 Cicatrix at incision sites medial foot and anterior leg with no signs of infection. Ulceration dorsal foot continues granulating in well versus her previous visit. She continues healing well at this time and continues HBO dives following tube placement. Ulceration predebridement measures 2.9 cm x 1.7 cm x 0.1 cm Ulceration did undergo debridement as noted on clinical panel above. Chemical (72250) cauterization was performed of the hypergranular tissue. Postdebridement measurements 3.0 cm x 1.8 cm x 0.1 cm. EpiFix #10 applied to the ulcerative bed and dressed with Adaptic touch and anchored with Steri- Strips. Dry sterile dressing applied to site with Tubigrip compression. She was instructed to not get the site wet and utilize cast bag when showering. She is understanding of this. She may change outer dressings as needed. Ulceration continues reduction in size. Overall healing well. She has been approved for EpiFix, last application performed. Has finished oral antibiotic doxycycline 100 mg twice daily and Augmentin 875mg daily. Will be permitted to continue protective weightbearing to the right lower extremity in CAM boot. Previously discussed medical clearance for HBO and she has been cleared by Dr. Howard. She will continue HBO dives as this is essential to her healing. She has had previous lab work drawn while in hospital 03/08/2024 [facility]. Did have chest x-ray during her hospital stay in January 2024 along with echocardiogram. Did undergo EKG for evaluation prior to dive. HgbA1c during hospital admission was 11.3% on 02/15/2024. Sugars have been well controlled following approval of insulin on new insurance. I do expect her A1c to continue to decrease. PICC removed 03/31/24. Following with ID. The following work up and care recommendations were made: Dressing: EpiFix, Adaptic touch, Steri-Strips, dry sterile dressing right foot Wash: Do not get wet Tissue growth optimization: EpiFix Offload: Nonweightbearing to the right lower extremity Vascular: DP and PT pulses palpable with adequate capillary fill time. Vascular status not impacting healing at this time. Edema: Edema well-controlled. Will continue with Tubigrip stocking application Infection: No signs of infection. Currently on IV antibiotics via PICC line. Will continue daptomycin and Unasyn per ID Pain: No pain to the ulcerative site secondary to diabetic peripheral polyne uropathy Host factors: DM type II with peripheral polyneuropathy, uncontrolled. Charcot foot right foot At this time prognosis is good and she continues healing well. Will continue HBO therapy as this is aiding in wound healing. I answered all the patient's questions. To return to the wound healing center in 1 week or call sooner if the patient has any questions or concerns.
[2024-06-02 08:40] LABS: Bedside Glucose 155 mg/dL (74-106)
[2024-06-02 10:41] LABS: Bedside Glucose 92 mg/dL (74-106)
[2024-06-02 11:18] VITALS: BP 124/65; BP 133/76; PULSE 64; PULSE 68; RESP 14; RESP 15; TEMP 35.7; TEMP 36
--- NOTE | 2024-06-02 12:06 | PN.PCM_ITS ---
History of Present Illness Date of Service: 06/02/24 Chief Complaint: HBO History of Wound: Ms. Falk is a 58-year-old currently being seen at the wound center for right foot/ankle ulcer. Since her initial certification, has had 23 sessions of hyperbaric oxygen therapy which she has tolerated well and there has been corresponding significant improvement in ulcer. 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 Blood glucose readings have been largely stable. No chest pain, tightness, blurry vision or concerns reported. Progress of Wound: Progress: Today's session represents the 28th session of 30 planned sessions. Tolerance: Hyperbaric oxygen therapy was administered as per the facility's protocol. 100% oxygen at 2 KELLY for 90 minutes without air breaks. She tolerated hyperbaric oxygen therapy without any complaints or complications. Upon emergence from the chamber, her vitals remained stable and she was discharged in stable condition. Pre and post blood glucose readings as documented. Objective Data Objective Data Vital Signs: Vital Signs Temp Pulse Resp BP 96.8 F L 68 14 133/76 H 06/02/24 11:18 06/02/24 11:18 06/02/24 11:18 06/02/24 11:18 Lab / Micro Data Labs: Laboratory Results - last 24 hr 06/02/24 08:22: POC Glucose 155 H 06/02/24 10:23: POC Glucose 92 Physical Exam Const alert, oriented x3 and no apparent distress HEENT HEENT Narrative: tympanostomy tubes present bilaterally and patent Psych mental status grossly normal, thought process normal, cooperative, affect normal and speech normal Debridement Note Debridement Note Post-Debridement Measurements and Additional Note: Post-Debridement Measurements/Treatment - Nurse 1 - General Ulcer Assessment Start: 05/25/24 10:53 Freq: Status: Active Protocol: [email or web address] Activity Type Activity Date Activity User E-sign Co-sign Detail Recorded Client Recorded Date Recorded By Document 05/25/24 10:54 DL [id number] 05/25/24 11:04 DL Document 06/01/24 11:05 RB [id number] 06/01/24 11:08 RB 05/25/24 06/01/24 10:54 11:05 - Today's Visit Information Type of service Follow-up Visit Follow-up Visit (Physician/SECURITY SOLUTIONS ENGINEER (Physician/SECURITY SOLUTIONS ENGINEER ) ) Arrival Mode Ambulatory Ambulatory Transfer Assistance None None Patient Identification Verified (Name & Yes Yes ) Patient Requires Transmission-Based No No Precautions Finger Stick Blood Sugar(mg/dl) (if 109 121 indicated): Blood Sugar Done During Done During this Visit this Visit Vital Signs Temperature (97.8 F-99.1 F) 97 F L 96.5 F L Temperature Source Temporal Temporal Pulse Rate (60-100) 69 77 Pulse Location Monitor Monitor Respiratory Rate (12-18) 16 18 Respiratory rate source Observation Observation Blood Pressure (90/60-120/80) 123/69 H 133/77 H Blood Pressure Mean (mm Hg) 87 95 Source Monitor Monitor Position Semi-Fowlers Blood Pressure Location Left Arm History Since Last Visit- (Skip if this is Patient's initial visit) Have you changed medications since your No No last visit? Any new allergies or adverse reactions No No Had a fall/change in ADL's that may No No increase risk of falls Signs or symptoms of abuse and/or No No neglect since last visit Have you been in the hospital since your No No last visit? Has dressing in place as prescribed Yes Yes Has compression in place as prescribed Yes Yes Has offloadiing in place as prescribed Yes Yes Experienced any changes in pain level or No No management Left Footwear Regular Shoe Right Footwear Removable Cast Walker/Walking Boot Pain Scale: 0-10 Numeric Is Patient Pain Free? Yes No RLE -Description Aching -Intensity 6 -Duration (hours) Acute -Pain Behavior Irritability -Pain Aggravating Factors ADL's -Alleviating Factors/Interventions Medication -Effectiveness of Alleviating Factor/ Moderately Intervention effective WC - Nurse 1 - General Ulcer Measurement Start: 05/25/24 10:53 Freq: Status: Active Protocol: Activity Type Activity Date Activity User E-sign Co-sign Detail Recorded Client Recorded Date Recorded By Document 05/25/24 10:54 DL [id number] 05/25/24 11:04 DL Document 06/01/24 11:05 RB [id number] 06/01/24 11:08 RB 05/25/24 06/01/24 10:54 11:05 Wound Center Nurse 1 #5 RDorsal/Anterior Ankle -Combined with other wound No -Current Size (cm) - Length 3.5 3.5 -Current Size (cm) - Width 2.3 2 -Current Size (cm) - Depth 0.1 0.1 -Total Square Cm 8.05 7.0 -Photo Taken Yes Yes -Tunneling No -Undermining/Tunneling No -Circular Undermining No -Exudate Amt Medium Large -Exudate Type Serosanguineous Serosanguineous -Wound Margin Distinct, Flat & Intact Outline Attached -Granulation Amt None Present (0 Small (1-33%) %) -Granulation Quality Hyper- [place] granulation -Slough/Fibrin Yes -Necrosis Amt Large (67-100%) Large (67-100%) -Necrotic Tissue Type Adherent Slough Adherent Slough -Structure Exposed N/A N/A -Texture (Marie-wound Skin Appearance) Scarring Assessed -Moisture (Amrie-wound Skin Appearance) No Abnormality Maceration -Color (Marie-wound Skin Appearance) No Abnormality Assessed -Temperature (Marie-wound Skin No Abnormality No Abnormality Appearance) (Pt Warm) (Pt Warm) -Tenderness on Palpation (Marie-wound No Skin Appearance) -Ulcer Cleansing Soap and Water Wound Cleanser -Foul Odor after Cleansing No No -Anesthetic Used 5% Lidocaine 5% Lidocaine Gel Gel Lower Limb Edema Present Yes Left Calf (cm) 34.5 Left Ankle (cm) 22 WC - Nurse 2 - General Ulcer CM Notes Start: 05/25/24 10:53 Freq: Status: Active Protocol: Activity Type Activity Date Activity User E-sign Co-sign Detail Recorded Client Recorded Date Recorded By Document 05/25/24 11:12 [facility] [id number] 05/25/24 11:47 [facility] Document 06/01/24 11:16 [facility] [id number] 06/01/24 11:33 [facility] 05/25/24 06/01/24 11:12 11:16 Wound Center Nurse 2 #5 RDorsal/Anterior Ankle -Time 11:14 11:16 -Correct Patient Yes Yes -Correct Side, Site, Position Yes Yes -Correct Procedure Yes Yes -Procedure Performed Yes Yes -Type of Procedure Debridement Debridement -Clinical Debridement Subcutaneous Subcutaneous -Tissue Removed Subcutaneous Subcutaneous -Post Debridement (cm) - Length 3 3 -Post Debridement (cm) - Width 2.3 1.8 -Post Debridement (cm) - Depth 0.1 0.1 -Total Square (Post) (cm) 6.9 5.4 -Area of Debridement (cm) - Length 3 3 -Area of Debridement (cm) - Width 2.3 1.8 -Total Square (Area) (cm) 6.9 5.4 -Tunneling No No -Undermining/Tunneling No No -Circular Undermining No No -Wound/Ulcer Outcome Not Healed Not Healed -Ulcer Cleansing Rinsed/ Rinsed/ Irrigated with Irrigated with Saline Saline -Foul Odor after Cleansing No No -Bioengineered Tissue No Yes -Type of Bioengineered Tissue Epifix Mesh Epifix Mesh -Expiration Date 11/21/28 11/21/28 -Product Lot Number [id number] -Percent Used 100 100 -Lot number of Saline Used [id number] -Bleeding Controlled with Pressure, Pressure,Silver SURGIFOAM Nitrate -Other Type of Bleeding Control bovie used -Treatment Response Procedure Procedure Tolerated Well Tolerated Well -Offloading Yes -Type of Offloading Camwalker -Debridement - Subq, 1st 20sq cm No No -Apply Skin Sub - 1st 25 sq cm - Feet 1 1 -Epifix Mesh (per sq cm) 11 11 Pain Scale: 0-10 Numeric Is Patient Pain Free? Yes Yes WC - Nurse 3 - General Ulcer D/C NN Start: 05/25/24 10:53 Freq: Status: Active Protocol: Activity Type Activity Date Activity User E-sign Co-sign Detail Recorded Client Recorded Date Recorded By Document 05/25/24 11:55 DL [id number] 05/25/24 11:57 DL Document 06/01/24 11:42 KW [id number] 06/01/24 11:48 KW 05/25/24 06/01/24 11:55 11:42 Wound Care Center Nurse 3 #5 RDorsal/Anterior Ankle -Foul Odor after Cleansing No -Primary Dressing Applied Aquacel Extra, Aquacel Extra Surgifoam -Other Dressing Epimesh -Primary Dressing Covered/Secured with Dry Gauze & Dry Gauze & Roll Gauze, Roll Gauze, Secured with Secured with Tape Tape -Aquacel Extra 1 1 -Surgifoam 12-7mm (3/4 x 2 3/8) 2 -Wound Comment(s) Bovie used today per Dr. Lewis. Right -Compression Wrap Sebastian Wrap Sebastian Wrap Treatment Response Procedure Tolerated Well Pain Scale: 0-10 Numeric Is Patient Pain Free? Yes Yes WC - Visit Discharge Discharge Condition Stable Stable Ambulatory Status Ambulatory Ambulatory Transportation Private Auto Private Auto Medication Reconcilliation completed & No provided to patient/care provider Clinical Summary of Care Provided Yes Facility Type Home Health Orders Sent Yes Assessment/Plan Assessment/Plan (1) Type 2 diabetes mellitus with foot ulcer: CODE(S): E11.621 - Type 2 diabetes mellitus with foot ulcer; L97.509 - Non-pressure chronic ulcer of other part of unspecified foot with unspecified severity QUALIFIERS: Diabetes mellitus long-term insulin use: with long-term use Qualified Code(s): E11.621 - Type 2 diabetes mellitus with foot ulcer; L97.509 - Non-pressure chronic ulcer of other part of unspecified foot with unspecified severity; Z79.4 - [facility] (current) use of insulin (2) Non-pressure chronic ulcer of other part of right foot with fat layer exposed: CODE(S): L97.512 - Non-pressure chronic ulcer of other part of right foot with fat layer exposed (3) Type 2 diabetes mellitus with diabetic polyneuropathy: CODE(S): E11.42 - Type 2 diabetes mellitus with diabetic polyneuropathy QUALIFIERS: Diabetes mellitus exterminator insulin use: with long-term use Qualified Code(s): E11.42 - Type 2 diabetes mellitus with diabetic polyneuropathy; Z79.4 - exterminator (current) use of insulin (4) Charcot's joint of right foot: CODE(S): M14.671 - Charcot's joint, right ankle and foot PLAN: Plan The patient appears to be tolerating hyperbaric oxygen therapy well, which will be continued as per their medical treatment plan.
[2024-06-06 08:36] LABS: Bedside Glucose 138 mg/dL (74-106)
--- NOTE | 2024-06-06 09:42 | WC ---
PHOTO 06/01/24 RIGHT DORSAL FOOT
[2024-06-06 10:51] LABS: Bedside Glucose 115 mg/dL (74-106)
[2024-06-06 11:06] VITALS: BP 123/65; BP 127/86; PULSE 81; PULSE 86; RESP 15; RESP 16; TEMP 36.1
--- NOTE | 2024-06-06 11:55 | PCM.HBO.PN ---
History of Present Illness Date of Service: 06/06/24 Chief Complaint: HBO History of Wound: Ms. Falk is a 58-year-old currently being seen at the wound center for right foot/ankle ulcer. Since her initial certification, has had 23 sessions of hyperbaric oxygen therapy which she has tolerated well and there has been corresponding significant improvement in ulcer. 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 Blood glucose readings have been largely stable. No chest pain, tightness, blurry vision or concerns reported. Progress of Wound: Progress: Today's session represents the 29th session of 30 planned sessions. Tolerance: Hyperbaric oxygen therapy was administered as per the facility's protocol. 100% oxygen at 2 KELLY for 90 minutes without air breaks. She tolerated hyperbaric oxygen therapy without any complaints or complications. Upon emergence from the chamber, her vitals remained stable and she was discharged in stable condition. Pre and post blood glucose readings as documented. Objective Data Objective Data Vital Signs: Vital Signs Temp Pulse Resp BP 97.0 F L 86 15 123/65 H 06/06/24 11:06 06/06/24 11:06 06/06/24 11:06 06/06/24 11:06 Lab / Micro Data Labs: Laboratory Results - last 24 hr 06/06/24 08:18: POC Glucose 138 H 06/06/24 10:34: POC Glucose 115 H Exam Physical Exam Const alert and oriented x3 General Appearance: cooperative HEENT normocephalic HEENT Narrative: Bilateral Tympanostomy tubes in place. Eyes General Eye: normal appearance of both eyes Resp normal respiratory effort, no use of accessory muscles and clear to auscultation bilaterally Effort and Inspection: able to speak in complete sentences Cardio regular rate and regular rhythm Palpation: normal PMI Psych affect normal Charges/Coding Wound Center CF Procedures HBO Supervision: [id number] Hyperbaric Oxygen; supervision Assessment/Plan Assessment/Plan (1) Type 2 diabetes mellitus with foot ulcer: CODE(S): E11.621 - Type 2 diabetes mellitus with foot ulcer; L97.509 - Non-pressure chronic ulcer of other part of unspecified foot with unspecified severity QUALIFIERS: Diabetes mellitus custodial insulin use: with custodial use Qualified Code(s): E11.621 - Type 2 diabetes mellitus with foot ulcer; L97.509 - Non-pressure chronic ulcer of other part of unspecified foot with unspecified severity; Z79.4 - long-term (current) use of insulin (2) Non-pressure chronic ulcer of other part of right foot with fat layer exposed: CODE(S): L97.512 - Non-pressure chronic ulcer of other part of right foot with fat layer exposed (3) Type 2 diabetes mellitus with diabetic polyneuropathy: CODE(S): E11.42 - Type 2 diabetes mellitus with diabetic polyneuropathy QUALIFIERS: Diabetes mellitus termite control technician insulin use: with termite control technician use Qualified Code(s): E11.42 - Type 2 diabetes mellitus with diabetic polyneuropathy; 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 (4) Charcot's joint of right foot: CODE(S): M14.671 - Charcot's joint, right ankle and foot PLAN: Plan The patient appears to be tolerating hyperbaric oxygen therapy well, which will be continued as per their medical treatment plan.
[2024-06-07 08:36] LABS: Bedside Glucose 161 mg/dL (74-106)
--- NOTE | 2024-06-07 09:33 | PCM.HBO.PN ---
History of Present Illness Date of Service: 06/07/24 Chief Complaint: HBO History of Wound: Ms. Falk is a 58-year-old currently being seen at the wound center for right foot/ankle ulcer. Since her initial certification, has had 23 sessions of hyperbaric oxygen therapy which she has tolerated well and there has been corresponding significant improvement in ulcer. 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 Blood glucose readings have been largely stable. No chest pain, tightness, blurry vision or concerns reported. Progress of Wound: Progress: Today's session represents the 30th session. She has been approved for an additional 30 sessions, which will make a plan of 60 total sessions. Tolerance: Hyperbaric oxygen therapy was administered as per the facility's protocol. 100% oxygen at 2 KELLY for 90 minutes without air breaks. She tolerated hyperbaric oxygen therapy without any complaints or complications. Upon emergence from the chamber, her vitals remained stable and she was discharged in stable condition. Pre and post blood glucose readings as documented. Objective Data Objective Data Vital Signs: Vital Signs Temp Pulse Resp BP 97.0 F L 86 15 123/65 H 06/06/24 11:06 06/06/24 11:06 06/06/24 11:06 06/06/24 11:06 Lab / Micro Data Labs: Laboratory Results - last 24 hr 06/06/24 10:34: POC Glucose 115 H 06/07/24 08:18: POC Glucose 161 H Exam Physical Exam Const alert and oriented x3 General Appearance: cooperative HEENT normocephalic HEENT Narrative: Bilateral Tympanostomy tubes in place. Eyes General Eye: normal appearance of both eyes Resp normal respiratory effort, no use of accessory muscles and clear to auscultation bilaterally Effort and Inspection: able to speak in complete sentences Cardio regular rate and regular rhythm Palpation: normal PMI Psych affect normal Charges/Coding Wound Center CF Procedures HBO Supervision: [id number] Hyperbaric Oxygen; supervision Assessment/Plan Assessment/Plan (1) Type 2 diabetes mellitus with foot ulcer: CODE(S): E11.621 - Type 2 diabetes mellitus with foot ulcer; L97.509 - Non-pressure chronic ulcer of other part of unspecified foot with unspecified severity QUALIFIERS: Diabetes mellitus exterminator termite insulin use: with halfway use Qualified Code(s): E11.621 - Type 2 diabetes mellitus with foot ulcer; L97.509 - Non-pressure chronic ulcer of other part of unspecified foot with unspecified severity; Z79.4 - longterm (current) use of insulin (2) Non-pressure chronic ulcer of other part of right foot with fat layer exposed: CODE(S): L97.512 - Non-pressure chronic ulcer of other part of right foot with fat layer exposed (3) Type 2 diabetes mellitus with diabetic polyneuropathy: CODE(S): E11.42 - Type 2 diabetes mellitus with diabetic polyneuropathy QUALIFIERS: Diabetes mellitus halfway insulin use: with exterminator termite use Qualified Code(s): E11.42 - Type 2 diabetes mellitus with diabetic polyneuropathy; Z79.4 - bed bug exterminator (current) use of insulin (4) Charcot's joint of right foot: CODE(S): M14.671 - Charcot's joint, right ankle and foot PLAN: Plan The patient appears to be tolerating hyperbaric oxygen therapy well, which will be continued as per their medical treatment plan.
[2024-06-07 10:49] VITALS: BP 114/71; BP 121/70; PULSE 75; PULSE 76; RESP 14; TEMP 35.7; TEMP 36
[2024-06-07 10:54] LABS: Bedside Glucose 84 mg/dL (74-106)
[2024-06-09 08:32] LABS: Bedside Glucose 151 mg/dL (74-106)
[2024-06-09 10:41] LABS: Bedside Glucose 121 mg/dL (74-106)
[2024-06-09 10:42] VITALS: BP 116/69; BP 125/72; PULSE 69; PULSE 75; RESP 15; TEMP 36.1
--- NOTE | 2024-06-09 13:58 | PN.PCM_ITS ---
History of Present Illness Date of Service: 06/09/24 Chief Complaint: HBO History of Wound: Ms. Falk is a 58-year-old currently being seen at the wound center for right foot/ankle ulcer. Since her initial certification, has had 23 sessions of hyperbaric oxygen therapy which she has tolerated well and there has been corresponding significant improvement in ulcer. 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 Blood glucose readings have been largely stable. No chest pain, tightness, blurry vision or concerns reported. Progress of Wound: Progress: Today's session represents the 31st session. She has been approved for an additional 30 sessions, which will make a plan of 60 total sessions. Tolerance: Hyperbaric oxygen therapy was administered as per the facility's protocol. 100% oxygen at 2 KELLY for 90 minutes without air breaks. She tolerated hyperbaric oxygen therapy without any complaints or complications. Upon emergence from the chamber, her vitals remained stable and she was discharged in stable condition. Pre and post blood glucose readings as documented. Objective Data Objective Data Vital Signs: Vital Signs Temp Pulse Resp BP 97.0 F L 75 15 116/69 06/09/24 10:42 06/09/24 10:42 06/09/24 10:42 06/09/24 10:42 Lab / Micro Data Attestation: I reviewed the patient's lab results. Labs: Laboratory Results - last 24 hr 06/09/24 08:14: POC Glucose 151 H 06/09/24 10:22: POC Glucose 121 H Physical Exam Const alert, oriented x3 and no apparent distress General Appearance: cooperative HEENT normocephalic HEENT Narrative: Bilateral Tympanostomy tubes in place. Eyes General Eye: normal appearance of both eyes Resp normal respiratory effort, no use of accessory muscles and clear to auscultation bilaterally Effort and Inspection: able to speak in complete sentences Cardio regular rate and regular rhythm Palpation: normal PMI Psych mental status grossly normal, thought process normal, cooperative, affect normal and speech normal Debridement Note Debridement Note Post-Debridement Measurements and Additional Note: Post-Debridement Measurements/Treatment ALISSA - Nurse 1 - General Ulcer Assessment Start: 05/25/24 10:53 Freq: Status: Active Protocol: RUKHSANA Activity Type Activity Date Activity User E-sign Co-sign Detail Recorded Client Recorded Date Recorded By Document 05/25/24 10:54 DL [id number] 05/25/24 11:04 DL Document 06/01/24 11:05 RB [id number] 06/01/24 11:08 RB 05/25/24 06/01/24 10:54 11:05 WC - Today's Visit Information Type of service Follow-up Visit Follow-up Visit (Physician/FRUIT I FARMWORKER (Physician/FRUIT I FARMWORKER ) ) Arrival Mode Ambulatory Ambulatory Transfer Assistance None None Patient Identification Verified (Name & Yes Yes ) Patient Requires Transmission-Based No No Precautions Finger Stick Blood Sugar(mg/dl) (if 109 121 indicated): Blood Sugar Done During Done During this Visit this Visit Vital Signs Temperature (97.8 F-99.1 F) 97 F L 96.5 F L Temperature Source Temporal Temporal Pulse Rate (60-100) 69 77 Pulse Location Monitor Monitor Respiratory Rate (12-18) 16 18 Respiratory rate source Observation Observation Blood Pressure (90/60-120/80) 123/69 H 133/77 H Blood Pressure Mean (mm Hg) 87 95 Source Monitor Monitor Position Semi-Fowlers Blood Pressure Location Left Arm History Since Last Visit- (Skip if this is Patient's initial visit) Have you changed medications since your No No last visit? Any new allergies or adverse reactions No No Had a fall/change in ADL's that may No No increase risk of falls Signs or symptoms of abuse and/or No No neglect since last visit Have you been in the hospital since your No No last visit? Has dressing in place as prescribed Yes Yes Has compression in place as prescribed Yes Yes Has offloadiing in place as prescribed Yes Yes Experienced any changes in pain level or No No management Left Footwear Regular Shoe Right Footwear Removable Cast Walker/Walking Boot Pain Scale: 0-10 Numeric Is Patient Pain Free? Yes No RLE -Description Aching -Intensity 6 -Duration (hours) Acute -Pain Behavior Irritability -Pain Aggravating Factors ADL's -Alleviating Factors/Interventions Medication -Effectiveness of Alleviating Factor/ Moderately Intervention effective WC - Nurse 1 - General Ulcer Measurement Start: 05/25/24 10:53 Freq: Status: Active Protocol: Activity Type Activity Date Activity User E-sign Co-sign Detail Recorded Client Recorded Date Recorded By Document 05/25/24 10:54 DL [id number] 05/25/24 11:04 DL Document 06/01/24 11:05 RB [id number] 06/01/24 11:08 RB 05/25/24 06/01/24 10:54 11:05 Wound Center Nurse 1 #5 RDorsal/Anterior Ankle -Combined with other wound No -Current Size (cm) - Length 3.5 3.5 -Current Size (cm) - Width 2.3 2 -Current Size (cm) - Depth 0.1 0.1 -Total Square Cm 8.05 7.0 -Photo Taken Yes Yes -Tunneling No -Undermining/Tunneling No -Circular Undermining No -Exudate Amt Medium Large -Exudate Type Serosanguineous Serosanguineous -Wound Margin Distinct, Flat & Intact Outline Attached -Granulation Amt None Present (0 Small (1-33%) %) -Granulation Quality Hyper- [place] granulation -Slough/Fibrin Yes -Necrosis Amt Large (67-100%) Large (67-100%) -Necrotic Tissue Type Adherent Slough Adherent Slough -Structure Exposed N/A N/A -Texture (Marie-wound Skin Appearance) Scarring Assessed -Moisture (Marie-wound Skin Appearance) No Abnormality Maceration -Color (Marie-wound Skin Appearance) No Abnormality Assessed -Temperature (Marie-wound Skin No Abnormality No Abnormality Appearance) (Pt Warm) (Pt Warm) -Tenderness on Palpation (Marie-wound No Skin Appearance) -Ulcer Cleansing Soap and Water Wound Cleanser -Foul Odor after Cleansing No No -Anesthetic Used 5% Lidocaine 5% Lidocaine Gel Gel Lower Limb Edema Present Yes Left Calf (cm) 34.5 Left Ankle (cm) 22 WC - Nurse 2 - General Ulcer CM Notes Start: 05/25/24 10:53 Freq: Status: Active Protocol: Activity Type Activity Date Activity User E-sign Co-sign Detail Recorded Client Recorded Date Recorded By Document 05/25/24 11:12 [facility] [id number] 05/25/24 11:47 [facility] Document 06/01/24 11:16 [facility] [id number] 06/01/24 11:33 [facility] 05/25/24 06/01/24 11:12 11:16 Wound Center Nurse 2 #5 RDorsal/Anterior Ankle -Time 11:14 11:16 -Correct Patient Yes Yes -Correct Side, Site, Position Yes Yes -Correct Procedure Yes Yes -Procedure Performed Yes Yes -Type of Procedure Debridement Debridement -Clinical Debridement Subcutaneous Subcutaneous -Tissue Removed Subcutaneous Subcutaneous -Post Debridement (cm) - Length 3 3 -Post Debridement (cm) - Width 2.3 1.8 -Post Debridement (cm) - Depth 0.1 0.1 -Total Square (Post) (cm) 6.9 5.4 -Area of Debridement (cm) - Length 3 3 -Area of Debridement (cm) - Width 2.3 1.8 -Total Square (Area) (cm) 6.9 5.4 -Tunneling No No -Undermining/Tunneling No No -Circular Undermining No No -Wound/Ulcer Outcome Not Healed Not Healed -Ulcer Cleansing Rinsed/ Rinsed/ Irrigated with Irrigated with Saline Saline -Foul Odor after Cleansing No No -Bioengineered Tissue No Yes -Type of Bioengineered Tissue Epifix Mesh Epifix Mesh -Expiration Date 11/21/28 11/21/28 -Product Lot Number [id number] -Percent Used 100 100 -Lot number of Saline Used [id number] -Bleeding Controlled with Pressure, Pressure,Silver SURGIFOAM Nitrate -Other Type of Bleeding Control bovie used -Treatment Response Procedure Procedure Tolerated Well Tolerated Well -Offloading Yes -Type of Offloading Camwalker -Debridement - Subq, 1st 20sq cm No No -Apply Skin Sub - 1st 25 sq cm - Feet 1 1 -Epifix Mesh (per sq cm) 11 11 Pain Scale: 0-10 Numeric Is Patient Pain Free? Yes Yes WC - Nurse 3 - General Ulcer D/C NN Start: 05/25/24 10:53 Freq: Status: Active Protocol: Activity Type Activity Date Activity User E-sign Co-sign Detail Recorded Client Recorded Date Recorded By Document 05/25/24 11:55 DL [id number] 05/25/24 11:57 DL Document 06/01/24 11:42 KW [id number] 06/01/24 11:48 KW 05/25/24 06/01/24 11:55 11:42 Wound Care Center Nurse 3 #5 RDorsal/Anterior Ankle -Foul Odor after Cleansing No -Primary Dressing Applied Aquacel Extra, Aquacel Extra Surgifoam -Other Dressing Epimesh -Primary Dressing Covered/Secured with Dry Gauze & Dry Gauze & Roll Gauze, Roll Gauze, Secured with Secured with Tape Tape -Aquacel Extra 1 1 -Surgifoam 12-7mm (3/4 x 2 3/8) 2 -Wound Comment(s) Hosea used today per Dr. Lewis. Right -Compression Wrap Sebastian Wrap Sebastian Wrap Treatment Response Procedure Tolerated Well Pain Scale: 0-10 Numeric Is Patient Pain Free? Yes Yes WC - Visit Discharge Discharge Condition Stable Stable Ambulatory Status Ambulatory Ambulatory Transportation Private Auto Private Auto Medication Reconcilliation completed & No provided to patient/care provider Clinical Summary of Care Provided Yes Facility Type Home Health Orders Sent Yes Assessment/Plan Assessment/Plan (1) Type 2 diabetes mellitus with foot ulcer: CODE(S): E11.621 - Type 2 diabetes mellitus with foot ulcer; L97.509 - Non-pressure chronic ulcer of other part of unspecified foot with unspecified severity QUALIFIERS: Diabetes mellitus senior care insulin use: with senior care use Qualified Code(s): E11.621 - Type 2 diabetes mellitus with foot ulcer; L97.509 - Non-pressure chronic ulcer of other part of unspecified foot with unspecified severity; Z79.4 - long-term (current) use of insulin (2) Non-pressure chronic ulcer of other part of right foot with fat layer exposed: CODE(S): L97.512 - Non-pressure chronic ulcer of other part of right foot with fat layer exposed (3) Type 2 diabetes mellitus with diabetic polyneuropathy: CODE(S): E11.42 - Type 2 diabetes mellitus with diabetic polyneuropathy QUALIFIERS: Diabetes mellitus senior care insulin use: with senior care use Qualified Code(s): E11.42 - Type 2 diabetes mellitus with diabetic polyneuropathy; Z79.4 - long-term (current) use of insulin (4) Charcot's joint of right foot: CODE(S): M14.671 - Charcot's joint, right ankle and foot PLAN: Plan The patient appears to be tolerating hyperbaric oxygen therapy well, which will be continued as per their medical treatment plan.
[2024-06-13 08:38] LABS: Bedside Glucose 227 mg/dL (74-106)
--- NOTE | 2024-06-13 10:50 | HBO.PN.PCM_ITS ---
History of Present Illness Date of Service: 06/13/24 Chief Complaint: HBO History of Wound: Ms. Falk is a 58-year-old currently being seen at the wound center for right foot/ankle ulcer. Since her initial certification, has had 23 sessions of hyperbaric oxygen therapy which she has tolerated well and there has been corresponding significant improvement in ulcer. 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 Blood glucose readings have been largely stable. No chest pain, tightness, blurry vision or concerns reported. Progress of Wound: Progress: Today's session represents the 32nd session. She has been approved for an additional 30 sessions, which will make a plan of 60 total sessions. Tolerance: Hyperbaric oxygen therapy was administered as per the facility's protocol. 100% oxygen at 2 KELLY for 90 minutes without air breaks. She tolerated hyperbaric oxygen therapy without any complaints or complications. Upon emergence from the chamber, her vitals remained stable and she was discharged in stable condition. Pre and post blood glucose readings as documented. Objective Data Objective Data Vital Signs: Vital Signs Temp Pulse Resp BP 97.0 F L 75 15 116/69 06/09/24 10:42 06/09/24 10:42 06/09/24 10:42 06/09/24 10:42 Lab / Micro Data Labs: Laboratory Results - last 24 hr 06/13/24 08:20: POC Glucose 227 H Exam Physical Exam Const alert and oriented x3 General Appearance: cooperative HEENT normocephalic HEENT Narrative: Bilateral Tympanostomy tubes in place. Eyes General Eye: normal appearance of both eyes Resp normal respiratory effort, no use of accessory muscles and clear to auscultation bilaterally Effort and Inspection: able to speak in complete sentences Cardio regular rate and regular rhythm Palpation: normal PMI Psych affect normal Charges/Coding Wound Center CF Procedures HBO Supervision: [id number] Hyperbaric Oxygen; supervision Assessment/Plan Assessment/Plan (1) Type 2 diabetes mellitus with foot ulcer: CODE(S): E11.621 - Type 2 diabetes mellitus with foot ulcer; L97.509 - Non-pressure chronic ulcer of other part of unspecified foot with unspecified severity QUALIFIERS: Diabetes mellitus junior programmer analyst insulin use: with senior care use Qualified Code(s): E11.621 - Type 2 diabetes mellitus with foot ulcer; L97.509 - Non-pressure chronic ulcer of other part of unspecified foot with unspecified severity; Z79.4 - longterm (current) use of insulin (2) Non-pressure chronic ulcer of other part of right foot with fat layer exposed: CODE(S): L97.512 - Non-pressure chronic ulcer of other part of right foot with fat layer exposed (3) Type 2 diabetes mellitus with diabetic polyneuropathy: CODE(S): E11.42 - Type 2 diabetes mellitus with diabetic polyneuropathy QUALIFIERS: Diabetes mellitus junior programmer analyst insulin use: with senior care use Qualified Code(s): E11.42 - Type 2 diabetes mellitus with diabetic polyneuropathy; Z79.4 - refrigeration service inspector (current) use of insulin (4) Charcot's joint of right foot: CODE(S): M14.671 - Charcot's joint, right ankle and foot PLAN: Plan The patient appears to be tolerating hyperbaric oxygen therapy well, which will be continued as per their medical treatment plan.
[2024-06-13 10:52] LABS: Bedside Glucose 141 mg/dL (74-106)
[2024-06-13 11:14] VITALS: BP 115/56; BP 118/68; PULSE 75; PULSE 87; RESP 14; RESP 15; TEMP 35.7; TEMP 36.2
[2024-06-14 08:41] LABS: Bedside Glucose 175 mg/dL (74-106)
[2024-06-14 10:18] VITALS: BP 128/69; BP 133/77; PULSE 68; PULSE 83; RESP 15; RESP 16; TEMP 35.8; TEMP 35.9
[2024-06-14 11:00] LABS: Bedside Glucose 96 mg/dL (74-106)
--- NOTE | 2024-06-14 14:11 | PCM.HBO.PN ---
History of Present Illness Date of Service: 06/14/24 Chief Complaint: HBO History of Wound: Ms. Fakl is a 58-year-old currently being seen at the wound center for right foot/ankle ulcer. Since her initial certification, has had 23 sessions of hyperbaric oxygen therapy which she has tolerated well and there has been corresponding significant improvement in ulcer. 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 Blood glucose readings have been largely stable. No chest pain, tightness, blurry vision or concerns reported. Progress of Wound: Progress: Today's session represents the 33rd session. She has been approved for an additional 30 sessions, which will make a plan of 60 total sessions. Tolerance: Hyperbaric oxygen therapy was administered as per the facility's protocol. 100% oxygen at 2 KELLY for 90 minutes without air breaks. She tolerated hyperbaric oxygen therapy without any complaints or complications. Upon emergence from the chamber, her vitals remained stable and she was discharged in stable condition. Pre and post blood glucose readings as documented. Objective Data Objective Data Vital Signs: Vital Signs Temp Pulse Resp BP 96.5 F L 83 16 133/77 H 06/14/24 10:18 06/14/24 10:18 06/14/24 10:18 06/14/24 10:18 Lab / Micro Data Labs: Laboratory Results - last 24 hr 06/14/24 08:24: POC Glucose 175 H 06/14/24 10:42: POC Glucose 96 Exam Physical Exam Const alert and oriented x3 General Appearance: cooperative HEENT normocephalic HEENT Narrative: Bilateral Tympanostomy tubes in place. Eyes General Eye: normal appearance of both eyes Resp normal respiratory effort, no use of accessory muscles and clear to auscultation bilaterally Effort and Inspection: able to speak in complete sentences Cardio regular rate and regular rhythm Palpation: normal PMI Psych affect normal Charges/Coding Wound Center CF Procedures HBO Supervision: [id number] Hyperbaric Oxygen; supervision Assessment/Plan Assessment/Plan (1) Type 2 diabetes mellitus with foot ulcer: CODE(S): E11.621 - Type 2 diabetes mellitus with foot ulcer; L97.509 - Non-pressure chronic ulcer of other part of unspecified foot with unspecified severity QUALIFIERS: Diabetes mellitus jail insulin use: with jail use Qualified Code(s): E11.621 - Type 2 diabetes mellitus with foot ulcer; L97.509 - Non-pressure chronic ulcer of other part of unspecified foot with unspecified severity; Z79.4 - retirement (current) use of insulin (2) Non-pressure chronic ulcer of other part of right foot with fat layer exposed: CODE(S): L97.512 - Non-pressure chronic ulcer of other part of right foot with fat layer exposed (3) Type 2 diabetes mellitus with diabetic polyneuropathy: CODE(S): E11.42 - Type 2 diabetes mellitus with diabetic polyneuropathy QUALIFIERS: Diabetes mellitus jail insulin use: with truck terminal manager use Qualified Code(s): E11.42 - Type 2 diabetes mellitus with diabetic polyneuropathy; Z79.4 - regional intermodal truck driver (current) use of insulin (4) Charcot's joint of right foot: CODE(S): M14.671 - Charcot's joint, right ankle and foot PLAN: Plan The patient appears to be tolerating hyperbaric oxygen therapy well, which will be continued as per their medical treatment plan.
[2024-06-15 08:39] LABS: Bedside Glucose 183 mg/dL (74-106)
--- NOTE | 2024-06-15 09:48 | HBO.PN.PCM_ITS ---
History of Present Illness Date of Service: 06/15/24 Chief Complaint: HBO History of Wound: Ms. Falk is a 58-year-old currently being seen at the wound center for right foot/ankle ulcer. Since her initial certification, has had 23 sessions of hyperbaric oxygen therapy which she has tolerated well and there has been corresponding significant improvement in ulcer. 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 Blood glucose readings have been largely stable. No chest pain, tightness, blurry vision or concerns reported. Progress of Wound: Progress: Today's session represents the 34th session. So far, has been approved for a total of 60 sessions. Tolerance: Hyperbaric oxygen therapy was administered as per the facility's protocol. 100% oxygen at 2 KELLY for 90 minutes without air breaks. She tolerated hyperbaric oxygen therapy without any complaints or complications. Upon emergence from the chamber, her vitals remained stable and she was discharged in stable condition. Pre and post blood glucose readings as documented. Objective Data Objective Data Vital Signs: Vital Signs Temp Pulse Resp BP 96.5 F L 83 16 133/77 H 06/14/24 10:18 06/14/24 10:18 06/14/24 10:18 06/14/24 10:18 Lab / Micro Data Labs: Laboratory Results - last 24 hr 06/14/24 10:42: POC Glucose 96 06/15/24 08:20: POC Glucose 183 H Exam Physical Exam Const alert, oriented x3 and no apparent distress General Appearance: cooperative, comfortable and well kempt HEENT normocephalic, head/scalp atraumatic and hearing grossly normal bilaterally Tympanic Membrane: other Other Details: Bilateral tympanostomy tubes in place. Eyes EOMs intact bilaterally Neck full ROM General: normal visual inspection Resp normal respiratory effort Effort and Inspection: able to speak in complete sentences Neuro oriented x3 and CN's II-XII intact bilaterally Psych mental status grossly normal, thought process normal, cooperative and affect normal Charges/Coding Wound Center CF Procedures HBO Supervision: [id number] Hyperbaric Oxygen; supervision Assessment/Plan Assessment/Plan (1) Type 2 diabetes mellitus with foot ulcer: CODE(S): E11.621 - Type 2 diabetes mellitus with foot ulcer; L97.509 - Non-pressure chronic ulcer of other part of unspecified foot with unspecified severity QUALIFIERS: Diabetes mellitus intermediate school teacher insulin use: with intermediate school teacher use Qualified Code(s): E11.621 - Type 2 diabetes mellitus with foot ulcer; L97.509 - Non-pressure chronic ulcer of other part of unspecified foot with unspecified severity; Z79.4 - retirement (current) use of insulin (2) Non-pressure chronic ulcer of other part of right foot with fat layer exposed: CODE(S): L97.512 - Non-pressure chronic ulcer of other part of right foot with fat layer exposed (3) Type 2 diabetes mellitus with diabetic polyneuropathy: CODE(S): E11.42 - Type 2 diabetes mellitus with diabetic polyneuropathy QUALIFIERS: Diabetes mellitus intermediate school teacher insulin use: with intermediate school teacher use Qualified Code(s): E11.42 - Type 2 diabetes mellitus with diabetic polyneuropathy; Z79.4 - intermodal owner operator truck driver (current) use of insulin (4) Charcot's joint of right foot: CODE(S): M14.671 - Charcot's joint, right ankle and foot PLAN: Evelin Whatley tolerated hyperbaric oxygen therapy well which will be continued per her medical plan. This note was generated with [employer] software. It may contain incorrect words, spelling, and punctuation that were not noted in checking the note before signing.
[2024-06-15 10:42] VITALS: BP 126/64; BP 130/75; PULSE 94; PULSE 99; RESP 14; RESP 15; TEMP 35.6
[2024-06-15 10:54] LABS: Bedside Glucose 120 mg/dL (74-106)
[2024-06-15 11:29] VITALS: BP 130/75; PULSE 82; RESP 18; TEMP 36.1
--- NOTE | 2024-06-15 13:14 | PN.PCM_ITS ---
History of Present Illness Date of Service: 06/15/24 Chief Complaint: HBO History of Wound: Ms. Falk is a 58-year-old currently being seen at the wound center for right foot/ankle ulcer. Since her initial certification, has had 23 sessions of hyperbaric oxygen therapy which she has tolerated well and there has been corresponding significant improvement in ulcer. 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 Blood glucose readings have been largely stable. No chest pain, tightness, blurry vision or concerns reported. Progress of Wound: Progress: Today's session represents the 34th session. So far, has been approved for a total of 60 sessions. Tolerance: Hyperbaric oxygen therapy was administered as per the facility's protocol. 100% oxygen at 2 KELLY for 90 minutes without air breaks. She tolerated hyperbaric oxygen therapy without any complaints or complications. Upon emergence from the chamber, her vitals remained stable and she was discharged in stable condition. Pre and post blood glucose readings as documented. Subjective Subjective This is a 58-year-old female who continues to follow with the wound care center for right dorsal foot ulceration. She had previously undergone I&D on 02/10/2024 of the right foot. Continues to heal well and is changing outer dressing as needed leaving graft in place to Right foot. Continues HBO dives following tube placement in ears and is doing well. Ulcer site continues improvement. She feels ulceration is getting smaller. Denies constitutional symptoms. Denies further complaints. Objective Data Objective Data Vital Signs: Vital Signs Temp Pulse Resp BP 97 F L 82 18 130/75 H 06/15/24 11:29 06/15/24 11:29 06/15/24 11:29 06/15/24 11:29 Lab / Micro Data Labs: Laboratory Results - last 24 hr 06/15/24 08:20: POC Glucose 183 H 06/15/24 10:32: POC Glucose 120 H Physical Exam Const alert, oriented x3 and no apparent distress General Appearance: cooperative HEENT normocephalic Eyes General Eye: normal appearance of both eyes Neck General: normal visual inspection Lymph Lymphatic: no lymphadenopathy noted and no lymphedema noted Resp normal respiratory effort Cardio regular rate and regular rhythm Extremity no calf tenderness and no pedal edema Extremity Narrative: Right lower extremity: Vascular: DP and PT pulses palpable with adequate capillary fill time to the digits. Normal temperature gradient. Hair growth is absent to the digits. Neurologic: Gross sensation intact. Absent protective sensation consistent with diabetic peripheral polyneuropathy Musculoskeletal: No pain to palpation about the ulcerative site secondary to diabetic peripheral polyneuropathy. There is a Charcot foot deformity noted of the right foot. No pain to palpation about the ulcerative site. Dermatologic: Incision site medial foot healed with cicatrix. No signs of infection. Incision site anterior leg with cicatrix proximally and distally. No signs of infection. There is a full thickness ulceration dorsally along the midfoot medial to the incision site with healthy granular tissue and some hypergranular tissue. Ulceration continues improvement with reduction in size. Ulceration site demonstrates no signs of infection. Skin no rashes or lesions noted and skin turgor normal Neuro moves all extremities Debridement Note Debridement Note Wound debrided: Right foot Laterality: Right Wound Grade/Stage: Gonzalez stage III Type of Debridement: Excisional debridement Anesthesia Used: 5% Lidocaine Gel Depth: Down to and including healthy tissue and in the subcutaneous layer Percentage of wound debrided: 100 Instrument Used: 7mm curette Tissue Removed: Fibrous, devitalized subcutaneous, biofilm, slough Severity: Fat Layer Exposed Amount of bleeding with debridement: Mild Bleeding Controlled with: Compression and gauze Patient tolerated procedure: Patient tolerated procedure well Post-Debridement Measurements and Additional Note: Post-Debridement Measurements/Treatment - Nurse 1 - General Ulcer Assessment Start: 05/25/24 10:53 Freq: Status: Active Protocol: [email or web address].[email or web address] Activity Type Activity Date Activity User E-sign Co-sign Detail Recorded Client Recorded Date Recorded By Document 05/25/24 10:54 DL [id number] 05/25/24 11:04 DL Document 06/01/24 11:05 RB [id number] 06/01/24 11:08 RB Document 06/15/24 11:29 RB [id number] 06/15/24 11:31 RB Edit Result 06/15/24 11:29 RB (1) [id number] 06/15/24 11:33 RB (1) Pulse Rate (60-100) => 82 Blood Pressure (90/60-120/80) => 130/75 H Blood Pressure Mean (mm Hg) => 93 05/25/24 06/01/24 06/15/24 10:54 11:05 11:29 WC - Today's Visit Information Type of service Follow-up Visit Follow-up Visit Follow-up Visit (Physician/GEAR CUTTING MACHINE SET UP OPERATOR (Physician/GEAR CUTTING MACHINE SET UP OPERATOR (Physician/GEAR CUTTING MACHINE SET UP OPERATOR ) ) ) Arrival Mode Ambulatory Ambulatory Ambulatory Transfer Assistance None None None Patient Identification Verified (Name & Yes Yes Yes ) Patient Requires Transmission-Based No No No Precautions Finger Stick Blood Sugar(mg/dl) (if 109 121 indicated): Blood Sugar Done During Done During this Visit this Visit Vital Signs Temperature (97.8 F-99.1 F) 97 F L 96.5 F L 97 F L Temperature Source Temporal Temporal Temporal Pulse Rate (60-100) 69 77 82 Pulse Location Monitor Monitor Monitor Respiratory Rate (12-18) 16 18 18 Respiratory rate source Observation Observation Observation Blood Pressure (90/60-120/80) 123/69 H 133/77 H 130/75 H Blood Pressure Mean (mm Hg) 87 95 93 Source Monitor Monitor Monitor Position Semi-Fowlers Sitting Blood Pressure Location Left Arm Left Arm History Since Last Visit- (Skip if this is Patient's initial visit) Have you changed medications since your No No No last visit? Any new allergies or adverse reactions No No No Had a fall/change in ADL's that may No No No increase risk of falls Signs or symptoms of abuse and/or No No No neglect since last visit Have you been in the hospital since your No No No last visit? Has dressing in place as prescribed Yes Yes Yes Has compression in place as prescribed Yes Yes Yes Has offloadiing in place as prescribed Yes Yes N/A Experienced any changes in pain level or No No No management Left Footwear Regular Shoe Right Footwear Removable Cast Walker/Walking Boot Pain Scale: 0-10 Numeric Is Patient Pain Free? Yes No Yes RLE -Description Aching -Intensity 6 -Duration (hours) Acute -Pain Behavior Irritability -Pain Aggravating Factors ADL's -Alleviating Factors/Interventions Medication -Effectiveness of Alleviating Factor/ Moderately Intervention effective WC - Nurse 1 - General Ulcer Measurement Start: 05/25/24 10:53 Freq: Status: Active Protocol: Activity Type Activity Date Activity User E-sign Co-sign Detail Recorded Client Recorded Date Recorded By Document 05/25/24 10:54 DL [id number] 05/25/24 11:04 DL Document 06/01/24 11:05 RB [id number] 06/01/24 11:08 RB Document 06/15/24 11:29 RB [id number] 06/15/24 11:31 RB 05/25/24 06/01/24 06/15/24 10:54 11:05 11:29 Wound Center Nurse 1 #5 RDorsal/Anterior Ankle -Combined with other wound No No -Current Size (cm) - Length 3.5 3.5 1.3 -Current Size (cm) - Width 2.3 2 1.6 -Current Size (cm) - Depth 0.1 0.1 0.1 -Total Square Cm 8.05 7.0 2.08 -Photo Taken Yes Yes Yes -Tunneling No No -Undermining/Tunneling No No -Circular Undermining No No -Exudate Amt Medium Large Medium -Exudate Type Serosanguineous Serosanguineous Serosanguineous -Wound Margin Distinct, Flat & Intact Distinct, Outline Outline Attached Attached -Granulation Amt None Present (0 Small (1-33%) Medium (34-66%) %) -Granulation Quality Hyper- Kaufman Kaufman granulation -Slough/Fibrin Yes Yes -Necrosis Amt Large (67-100%) Large (67-100%) Medium (34-66%) -Necrotic Tissue Type Adherent Slough Adherent Slough Adherent Slough -Structure Exposed N/A N/A N/A -Texture (Marie-wound Skin Appearance) Scarring Assessed Assessed, Scarring -Moisture (Marie-wound Skin Appearance) No Abnormality Maceration Assessed, Maceration -Color (Marie-wound Skin Appearance) No Abnormality Assessed Assessed -Temperature (Marie-wound Skin No Abnormality No Abnormality No Abnormality Appearance) (Pt Warm) (Pt Warm) (Pt Warm) -Tenderness on Palpation (Marie-wound No No Skin Appearance) -Ulcer Cleansing Soap and Water Wound Cleanser Wound Cleanser -Foul Odor after Cleansing No No No -Anesthetic Used 5% Lidocaine 5% Lidocaine 5% Lidocaine Gel Gel Gel Lower Limb Edema Present Yes Left Calf (cm) 34.5 Left Ankle (cm) 22 WC - Nurse 2 - General Ulcer CM Notes Start: 05/25/24 10:53 Freq: Status: Active Protocol: Activity Type Activity Date Activity User E-sign Co-sign Detail Recorded Client Recorded Date Recorded By Document 05/25/24 11:12 [facility] [id number] 05/25/24 11:47 [facility] Document 06/01/24 11:16 [facility] [id number] 06/01/24 11:33 [facility] Document 06/15/24 11:53 [facility] [id number] 06/15/24 12:05 [facility] 05/25/24 06/01/24 06/15/24 11:12 11:16 11:53 Wound Center Nurse 2 #5 RDorsal/Anterior Ankle -Time 11:14 11:16 11:53 -Correct Patient Yes Yes Yes -Correct Side, Site, Position Yes Yes Yes -Correct Procedure Yes Yes Yes -Procedure Performed Yes Yes Yes -Type of Procedure Debridement Debridement Debridement -Clinical Debridement Subcutaneous Subcutaneous Subcutaneous -Tissue Removed Subcutaneous Subcutaneous Subcutaneous -Post Debridement (cm) - Length 3 3 2.4 -Post Debridement (cm) - Width 2.3 1.8 2 -Post Debridement (cm) - Depth 0.1 0.1 0.1 -Total Square (Post) (cm) 6.9 5.4 4.8 -Area of Debridement (cm) - Length 3 3 2.4 -Area of Debridement (cm) - Width 2.3 1.8 2 -Total Square (Area) (cm) 6.9 5.4 4.8 -Tunneling No No No -Undermining/Tunneling No No No -Circular Undermining No No No -Wound/Ulcer Outcome Not Healed Not Healed Not Healed -Ulcer Cleansing Rinsed/ Rinsed/ Rinsed/ Irrigated with Irrigated with Irrigated with Saline Saline Saline -Foul Odor after Cleansing No No No -Bioengineered Tissue No Yes No -Type of Bioengineered Tissue Epifix Mesh Epifix Mesh -Expiration Date 11/21/28 11/21/28 -Product Lot Number [id number] -Percent Used 100 100 -Lot number of Saline Used [id number] -Bleeding Controlled with Pressure, Pressure,Silver Pressure SURGIFOAM Nitrate -Other Type of Bleeding Control bovie used -Treatment Response Procedure Procedure Procedure Tolerated Well Tolerated Well Tolerated Well -Offloading Yes -Type of Offloading Camwalker -Debridement - Subq, 1st 20sq cm No No Yes -Apply Skin Sub - 1st 25 sq cm - Feet 1 1 -Epifix Mesh (per sq cm) 11 11 Pain Scale: 0-10 Numeric Is Patient Pain Free? Yes Yes Yes WC - Nurse 3 - General Ulcer D/C NN Start: 05/25/24 10:53 Freq: Status: Active Protocol: Activity Type Activity Date Activity User E-sign Co-sign Detail Recorded Client Recorded Date Recorded By Document 05/25/24 11:55 DL [id number] 05/25/24 11:57 DL Document 06/01/24 11:42 KW [id number] 06/01/24 11:48 KW Document 06/15/24 12:17 DL [id number] 06/15/24 12:19 DL 05/25/24 06/01/24 06/15/24 11:55 11:42 12:17 Wound Care Center Nurse 3 #5 RDorsal/Anterior Ankle -Ulcer Cleansing Rinsed/ Irrigated with Saline -Foul Odor after Cleansing No No -Primary Dressing Applied Aquacel Extra, Aquacel Extra Surgifoam -Primary Dressing Applied C Hydrogel ($), Collagen Powder ($) -Other Dressing Epimesh -Primary Dressing Covered/Secured with Dry Gauze & Dry Gauze & Dry Gauze & Roll Gauze, Roll Gauze, Roll Gauze, Secured with Secured with Secured with Tape Tape Tape -Other Covering SEBASTIAN -Aquacel Extra 1 1 -Surgifoam 12-7mm (3/4 x 2 3/8) 2 -Wound Comment(s) Hosea used today per Dr. Lewis. Right -Compression Wrap Sebastian Wrap Sebastian Wrap Treatment Response Procedure Procedure Tolerated Well Tolerated Well Pain Scale: 0-10 Numeric Is Patient Pain Free? Yes Yes Yes WC - Visit Discharge Discharge Condition Stable Stable Stable Ambulatory Status Ambulatory Ambulatory Ambulatory Transportation Private Auto Private Auto Private Auto Medication Reconcilliation completed & No provided to patient/care provider Clinical Summary of Care Provided Yes Facility Type Home Health Home Health Orders Sent Yes Yes Assessment/Plan Assessment/Plan (1) Non-pressure chronic ulcer of other part of right foot with fat layer exposed: CODE(S): L97.512 - Non-pressure chronic ulcer of other part of right foot with fat layer exposed (2) Type 2 diabetes mellitus with diabetic polyneuropathy: CODE(S): E11.42 - Type 2 diabetes mellitus with diabetic polyneuropathy QUALIFIERS: Diabetes mellitus fpc insulin use: with fpc use Qualified Code(s): E11.42 - Type 2 diabetes mellitus with diabetic polyneuropathy; Z79.4 - lobsterman (current) use of insulin (3) Charcot's joint of right foot: CODE(S): M14.671 - Charcot's joint, right ankle and foot (4) Type 2 diabetes mellitus with foot ulcer: CODE(S): E11.621 - Type 2 diabetes mellitus with foot ulcer; L97.509 - Non-pressure chronic ulcer of other part of unspecified foot with unspecified severity QUALIFIERS: Diabetes mellitus terminal block assembler insulin use: with terminal block assembler use Qualified Code(s): E11.621 - Type 2 diabetes mellitus with foot ulcer; L97.509 - Non-pressure chronic ulcer of other part of unspecified foot with unspecified severity; Z79.4 - group home (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 DOS 02/10/2024, POD #126 Cicatrix at incision sites medial foot and anterior leg with no signs of infection. Ulceration dorsal foot continues granulating in well versus her previous visit. She continues healing well at this time and continues HBO dives following tube placement. Ulceration predebridement measures 2.3 cm x 1.9 cm x 0.1 cm Ulceration did undergo debridement as noted on clinical panel above. Chemical (80615) cauterization was not performed of the hypergranular tissue today. Postdebridement measurements 2.4 cm x 2.0 cm x 0.1 cm. Has completed all 10 applications of EpiFix #10. Collagen powder moistened with hydrogel applied to the ulcerative bed today. Aquacel Ag and DSD applied. She is to change dressing daily. Ulceration continues reduction in size. Overall healing well. She was approved for EpiFix, completed all 10 applications. Has previously completed oral antibiotic doxycycline 100 mg twice daily and Augm entin 875mg daily. Will be permitted to continue protective weightbearing to the right lower extremity in CAM boot. Previously discussed medical clearance for HBO and she has been cleared by Dr. Howard. She will continue HBO dives as this is essential to her healing. She has had previous lab work drawn while in hospital 03/08/2024 [facility]. Did have chest x-ray during her hospital stay in January 2024 along with echocardiogram. Did undergo EKG for evaluation prior to dive. HgbA1c during hospital admission was 11.3% on 02/15/2024. Sugars have been well controlled following approval of insulin on new insurance. I do expect her A1c to continue to decrease. PICC removed 03/31/24. Following with ID. The following work up and care recommendations were made: Dressing: Collagen powder moistened with hydrogel, Aquacel Ag, dry sterile dressing right foot. Change daily Wash: Soap and water Tissue growth optimization: Collagen powder and hydrogel Offload: Nonweightbearing to the right lower extremity Vascular: DP and PT pulses palpable with adequate capillary fill time. Vascular status not impacting healing at this time. Edema: Edema well-controlled. Will continue with Tubigrip stocking application Infection: No signs of infection. Currently on IV antibiotics via PICC line. Will continue daptomycin and Unasyn per ID Pain: No pain to the ulcerative site secondary to diabetic peripheral polyneuropathy Host factors: DM type II with peripheral polyneuropathy, uncontrolled. Charcot foot right foot At this time prognosis is good and she continues healing well. Will continue HBO therapy as this is aiding in wound healing. I answered all the patient's questions. To return to the wound healing center in 1 week or call sooner if the patient has any questions or concerns.
[2024-06-16 08:43] LABS: Bedside Glucose 163 mg/dL (74-106)
[2024-06-16 08:47] VITALS: BP 105/66; BP 97/63; PULSE 74; PULSE 80; RESP 14; RESP 15; TEMP 35.6; TEMP 36.3
[2024-06-16 11:15] LABS: Bedside Glucose 129 mg/dL (74-106)
--- NOTE | 2024-06-16 14:03 | HBO.PN.PCM_ITS ---
History of Present Illness Date of Service: 06/16/24 Chief Complaint: HBO History of Wound: Ms. Falk is a 58-year-old currently being seen at the wound center for right foot/ankle ulcer. Since her initial certification, has had 23 sessions of hyperbaric oxygen therapy which she has tolerated well and there has been corresponding significant improvement in ulcer. 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 Blood glucose readings have been largely stable. No chest pain, tightness, blurry vision or concerns reported. Progress of Wound: Progress: Today's session represents the 35th session. So far, has been approved for a total of 60 sessions. Tolerance: Hyperbaric oxygen therapy was administered as per the facility's protocol. 100% oxygen at 2 KELLY for 90 minutes without air breaks. She tolerated hyperbaric oxygen therapy without any complaints or complications. Upon emergence from the chamber, her vitals remained stable and she was discharged in stable condition. Pre and post blood glucose readings as documented. Objective Data Objective Data Vital Signs: Vital Signs Temp Pulse Resp BP 96.1 F L 80 14 105/66 06/16/24 08:47 06/16/24 08:47 06/16/24 08:47 06/16/24 08:47 Lab / Micro Data Labs: Laboratory Results - last 24 hr 06/16/24 08:26: POC Glucose 163 H 06/16/24 10:57: POC Glucose 129 H Exam Physical Exam Const alert, oriented x3 and no apparent distress General Appearance: cooperative HEENT normocephalic HEENT Narrative: Bilateral Tympanostomy tubes in place. Eyes General Eye: normal appearance of both eyes Resp normal respiratory effort, no use of accessory muscles and clear to auscultation bilaterally Effort and Inspection: able to speak in complete sentences Cardio regular rate and regular rhythm Palpation: normal PMI Psych mental status grossly normal, thought process normal, cooperative, affect normal and speech normal Nursing Assessment and Debridement Post-Debridement Measurements and Additional Note: Post-Debridement Measurements/Treatment WC - Nurse 1 - General Ulcer Assessment Start: 05/25/24 10:53 Freq: Status: Active Protocol: [email or web address] Activity Type Activity Date Activity User E-sign Co-sign Detail Recorded Client Recorded Date Recorded By Document 06/15/24 11:29 RB [id number] 06/15/24 11:31 RB 06/15/24 11:29 - Today's Visit Information Type of service Follow-up Visit (Physician/ALUMINUM SHEET CUTTER ) Arrival Mode Ambulatory Transfer Assistance None Patient Identification Verified (Name & Yes ) Patient Requires Transmission-Based No Precautions Vital Signs Temperature (97.8 F-99.1 F) 97 F L Temperature Source Temporal Pulse Rate (60-100) 82 Pulse Location Monitor Respiratory Rate (12-18) 18 Respiratory rate source Observation Blood Pressure (90/60-120/80) 130/75 H Blood Pressure Mean (mm Hg) 93 Source Monitor Position Sitting Blood Pressure Location Left Arm History Since Last Visit- (Skip if this is Patient's initial visit) Have you changed medications since your No last visit? Any new allergies or adverse reactions No Had a fall/change in ADL's that may No increase risk of falls Signs or symptoms of abuse and/or No neglect since last visit Have you been in the hospital since your No last visit? Has dressing in place as prescribed Yes Has compression in place as prescribed Yes Has offloadiing in place as prescribed N/A Experienced any changes in pain level or No management Pain Scale: 0-10 Numeric Is Patient Pain Free? Yes - Nurse 1 - General Ulcer Measurement Start: 05/25/24 10:53 Freq: Status: Active Protocol: Activity Type Activity Date Activity User E-sign Co-sign Detail Recorded Client Recorded Date Recorded By Document 06/15/24 11:29 [id number] 06/15/24 11:31 06/15/24 11:29 Wound Center Nurse 1 #5 RDorsal/Anterior Ankle -Combined with other wound No -Current Size (cm) - Length 1.3 -Current Size (cm) - Width 1.6 -Current Size (cm) - Depth 0.1 -Total Square Cm 2.08 -Photo Taken Yes -Tunneling No -Undermining/Tunneling No -Circular Undermining No -Exudate Amt Medium -Exudate Type Serosanguineous -Wound Margin Distinct, Outline Attached -Granulation Amt Medium (34-66%) -Granulation Quality Rouse -Slough/Fibrin Yes -Necrosis Amt Medium (34-66%) -Necrotic Tissue Type Adherent Slough -Structure Exposed N/A -Texture (Amrie-wound Skin Appearance) Assessed, Scarring -Moisture (Marie-wound Skin Appearance) Assessed, Maceration -Color (Marie-wound Skin Appearance) Assessed -Temperature (Marie-wound Skin No Abnormality Appearance) (Pt Warm) -Tenderness on Palpation (Marie-wound No Skin Appearance) -Ulcer Cleansing Wound Cleanser -Foul Odor after Cleansing No -Anesthetic Used 5% Lidocaine Gel ALISSA - Nurse 2 - General Ulcer CM Notes Start: 05/25/24 10:53 Freq: Status: Active Protocol: Activity Type Activity Date Activity User E-sign Co-sign Detail Recorded Client Recorded Date Recorded By Document 06/15/24 11:53 [facility] [id number] 06/15/24 12:05 [facility] 06/15/24 11:53 Wound Center Nurse 2 -Time 11:53 -Correct Patient Yes -Correct Side, Site, Position Yes -Correct Procedure Yes -Procedure Performed Yes -Type of Procedure Debridement -Clinical Debridement Subcutaneous -Tissue Removed Subcutaneous -Post Debridement (cm) - Length 2.4 -Post Debridement (cm) - Width 2 -Post Debridement (cm) - Depth 0.1 -Total Square (Post) (cm) 4.8 -Area of Debridement (cm) - Length 2.4 -Area of Debridement (cm) - Width 2 -Total Square (Area) (cm) 4.8 -Tunneling No -Undermining/Tunneling No -Circular Undermining No -Wound/Ulcer Outcome Not Healed -Ulcer Cleansing Rinsed/ Irrigated with Saline -Foul Odor after Cleansing No -Bioengineered Tissue No -Bleeding Controlled with Pressure -Treatment Response Procedure Tolerated Well -Debridement - Subq, 1st 20sq cm Yes Pain Scale: 0-10 Numeric Is Patient Pain Free? Yes - Nurse 3 - General Ulcer D/C NN Start: 05/25/24 10:53 Freq: Status: Active Protocol: Activity Type Activity Date Activity User E-sign Co-sign Detail Recorded Client Recorded Date Recorded By Document 06/15/24 12:17 DL [id number] 06/15/24 12:19 DL 06/15/24 12:17 Wound Care Center Nurse 3 #5 RDorsal/Anterior Ankle -Ulcer Cleansing Rinsed/ Irrigated with Saline -Foul Odor after Cleansing No -Primary Dressing Applied C Hydrogel ($), Collagen Powder ($) -Primary Dressing Covered/Secured with Dry Gauze & Roll Gauze, Secured with Tape -Other Covering ARMANDO Treatment Response Procedure Tolerated Well Pain Scale: 0-10 Numeric Is Patient Pain Free? Yes WC - Visit Discharge Discharge Condition Stable Ambulatory Status Ambulatory Transportation Private Auto Facility Type Home Health Orders Sent Yes Assessment/Plan Assessment/Plan (1) Type 2 diabetes mellitus with foot ulcer: CODE(S): E11.621 - Type 2 diabetes mellitus with foot ulcer; L97.509 - Non-pressure chronic ulcer of other part of unspecified foot with unspecified severity QUALIFIERS: Diabetes mellitus assisted insulin use: with intermediate accountant use Qualified Code(s): E11.621 - Type 2 diabetes mellitus with foot ulcer; L97.509 - Non-pressure chronic ulcer of other part of unspecified foot with unspecified severity; Z79.4 - termite control service representative (current) use of insulin (2) Non-pressure chronic ulcer of other part of right foot with fat layer exposed: CODE(S): L97.512 - Non-pressure chronic ulcer of other part of right foot with fat layer exposed (3) Type 2 diabetes mellitus with diabetic polyneuropathy: CODE(S): E11.42 - Type 2 diabetes mellitus with diabetic polyneuropathy QUALIFIERS: Diabetes mellitus intermediate accountant insulin use: with intermediate accountant use Qualified Code(s): E11.42 - Type 2 diabetes mellitus with diabetic polyneuropathy; Z79.4 - jail (current) use of insulin (4) Charcot's joint of right foot: CODE(S): M14.671 - Charcot's joint, right ankle and foot PLAN: Plan The patient appears to be tolerating hyperbaric oxygen therapy well, which will be continued as per their medical treatment plan.
--- NOTE | 2024-06-16 14:22 | WC ---
PHOTO 06/15/24 RIGHT DORSAL FOOT
[2024-06-19 08:39] LABS: Bedside Glucose 157 mg/dL (74-106)
[2024-06-19 09:08] VITALS: BP 110/72; BP 131/80; PULSE 75; PULSE 85; RESP 14; TEMP 35.9; TEMP 36.1
[2024-06-19 10:57] LABS: Bedside Glucose 123 mg/dL (74-106)
--- NOTE | 2024-06-19 12:25 | HBO.PN.PCM_ITS ---
History of Present Illness Date of Service: 06/19/24 Chief Complaint: HBO History of Wound: Ms. Falk is a 58-year-old currently being seen at the wound center for right foot/ankle ulcer. Since her initial certification, has had 23 sessions of hyperbaric oxygen therapy which she has tolerated well and there has been corresponding significant improvement in ulcer. 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 Blood glucose readings have been largely stable. No chest pain, tightness, blurry vision or concerns reported. Progress of Wound: Progress: Today's session represents the 36th session. So far, has been approved for a total of 60 sessions. Tolerance: Hyperbaric oxygen therapy was administered as per the facility's protocol. 100% oxygen at 2 KELLY for 90 minutes without air breaks. She tolerated hyperbaric oxygen therapy without any complaints or complications. Upon emergence from the chamber, her vitals remained stable and she was discharged in stable condition. Pre and post blood glucose readings as documented. Objective Data Objective Data Vital Signs: Vital Signs Temp Pulse Resp BP 96.7 F L 85 14 110/72 06/19/24 09:08 06/19/24 09:08 06/19/24 09:08 06/19/24 09:08 Lab / Micro Data Labs: Laboratory Results - last 24 hr 06/19/24 08:21: POC Glucose 157 H 06/19/24 10:40: POC Glucose 123 H Exam Physical Exam Const alert and oriented x3 General Appearance: cooperative HEENT normocephalic HEENT Narrative: Bilateral Tympanostomy tubes in place. Eyes General Eye: normal appearance of both eyes Resp normal respiratory effort, no use of accessory muscles and clear to auscultation bilaterally Effort and Inspection: able to speak in complete sentences Cardio regular rate and regular rhythm Palpation: normal PMI Psych affect normal Charges/Coding Wound Center CF Procedures HBO Supervision: [id number] Hyperbaric Oxygen; supervision Assessment/Plan Assessment/Plan (1) Type 2 diabetes mellitus with foot ulcer: CODE(S): E11.621 - Type 2 diabetes mellitus with foot ulcer; L97.509 - Non-pressure chronic ulcer of other part of unspecified foot with unspecified severity QUALIFIERS: Diabetes mellitus ferry terminal agent insulin use: with intermediate use Qualified Code(s): E11.621 - Type 2 diabetes mellitus with foot ulcer; L97.509 - Non-pressure chronic ulcer of other part of unspecified foot with unspecified severity; Z79.4 - prison (current) use of insulin (2) Non-pressure chronic ulcer of other part of right foot with fat layer exposed: CODE(S): L97.512 - Non-pressure chronic ulcer of other part of right foot with fat layer exposed (3) Type 2 diabetes mellitus with diabetic polyneuropathy: CODE(S): E11.42 - Type 2 diabetes mellitus with diabetic polyneuropathy QUALIFIERS: Diabetes mellitus intermediate insulin use: with intermediate use Qualified Code(s): E11.42 - Type 2 diabetes mellitus with diabetic polyneuropathy; Z79.4 - prison (current) use of insulin (4) Charcot's joint of right foot: CODE(S): M14.671 - Charcot's joint, right ankle and foot PLAN: Plan The patient appears to be tolerating hyperbaric oxygen therapy well, which will be continued as per their medical treatment plan.
[2024-06-20 08:40] LABS: Bedside Glucose 181 mg/dL (74-106)
[2024-06-20 09:12] VITALS: BP 114/74; BP 120/68; PULSE 79; PULSE 81; RESP 14; RESP 15; TEMP 35.7; TEMP 36.1
[2024-06-20 10:57] LABS: Bedside Glucose 114 mg/dL (74-106)
--- NOTE | 2024-06-20 13:28 | HBO.PN.PCM_ITS ---
History of Present Illness Date of Service: 06/20/24 Chief Complaint: HBO History of Wound: Ms. Falk is a 58-year-old currently being seen at the wound center for right foot/ankle ulcer. Since her initial certification, has had 23 sessions of hyperbaric oxygen therapy which she has tolerated well and there has been corresponding significant improvement in ulcer. 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 Blood glucose readings have been largely stable. No chest pain, tightness, blurry vision or concerns reported. Progress of Wound: Progress: Today's session represents the 37th session. So far, has been approved for a total of 60 sessions. Tolerance: Hyperbaric oxygen therapy was administered as per the facility's protocol. 100% oxygen at 2 KELYL for 90 minutes without air breaks. She tolerated hyperbaric oxygen therapy without any complaints or complications. Upon emergence from the chamber, her vitals remained stable and she was discharged in stable condition. Pre and post blood glucose readings as documented. Objective Data Objective Data Vital Signs: Vital Signs Temp Pulse Resp BP 96.3 F L 81 15 120/68 06/20/24 09:12 06/20/24 09:12 06/20/24 09:12 06/20/24 09:12 Lab / Micro Data Labs: Laboratory Results - last 24 hr 06/20/24 08:21: POC Glucose 181 H 06/20/24 10:39: POC Glucose 114 H Exam Physical Exam Const alert and oriented x3 General Appearance: cooperative HEENT normocephalic HEENT Narrative: Bilateral Tympanostomy tubes in place. Eyes General Eye: normal appearance of both eyes Resp normal respiratory effort, no use of accessory muscles and clear to auscultation bilaterally Effort and Inspection: able to speak in complete sentences Cardio regular rate and regular rhythm Palpation: normal PMI Psych affect normal Charges/Coding Wound Center CF Procedures HBO Supervision: [id number] Hyperbaric Oxygen; supervision Assessment/Plan Assessment/Plan (1) Type 2 diabetes mellitus with foot ulcer: CODE(S): E11.621 - Type 2 diabetes mellitus with foot ulcer; L97.509 - Non-pressure chronic ulcer of other part of unspecified foot with unspecified severity QUALIFIERS: Diabetes mellitus filler leaf cutter long insulin use: with halfway use Qualified Code(s): E11.621 - Type 2 diabetes mellitus with foot ulcer; L97.509 - Non-pressure chronic ulcer of other part of unspecified foot with unspecified severity; Z79.4 - half-way (current) use of insulin (2) Non-pressure chronic ulcer of other part of right foot with fat layer exposed: CODE(S): L97.512 - Non-pressure chronic ulcer of other part of right foot with fat layer exposed (3) Type 2 diabetes mellitus with diabetic polyneuropathy: CODE(S): E11.42 - Type 2 diabetes mellitus with diabetic polyneuropathy QUALIFIERS: Diabetes mellitus halfway insulin use: with halfway use Qualified Code(s): E11.42 - Type 2 diabetes mellitus with diabetic polyneuropathy; Z79.4 - half-way (current) use of insulin (4) Charcot's joint of right foot: CODE(S): M14.671 - Charcot's joint, right ankle and foot PLAN: Plan The patient appears to be tolerating hyperbaric oxygen therapy well, which will be continued as per their medical treatment plan.
[2024-06-21 08:36] VITALS: BP 132/63; BP 145/76; PULSE 79; PULSE 87; RESP 14; TEMP 36.1; TEMP 36.3
[2024-06-21 08:37] LABS: Bedside Glucose 186 mg/dL (74-106)
[2024-06-21 10:44] LABS: Bedside Glucose 127 mg/dL (74-106)
--- NOTE | 2024-06-21 16:38 | HBO.PN.PCM_ITS ---
History of Present Illness Date of Service: 06/21/24 Chief Complaint: HBO History of Wound: Ms. Falk is a 58-year-old currently being seen at the wound center for right foot/ankle ulcer. Since her initial certification, has had 23 sessions of hyperbaric oxygen therapy which she has tolerated well and there has been corresponding significant improvement in ulcer. 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 Blood glucose readings have been largely stable. No chest pain, tightness, blurry vision or concerns reported. Progress of Wound: Progress: Today's session represents the 38th session. So far, has been approved for a total of 60 sessions. Tolerance: Hyperbaric oxygen therapy was administered as per the facility's protocol. 100% oxygen at 2 KELLY for 90 minutes without air breaks. She tolerated hyperbaric oxygen therapy without any complaints or complications. Upon emergence from the chamber, her vitals remained stable and she was discharged in stable condition. Pre and post blood glucose readings as documented. Objective Data Objective Data Vital Signs: Vital Signs Temp Pulse Resp BP 96.9 F L 87 14 145/76 H 06/21/24 08:36 06/21/24 08:36 06/21/24 08:36 06/21/24 08:36 Lab / Micro Data Labs: Laboratory Results - last 24 hr 06/21/24 08:20: POC Glucose 186 H 06/21/24 10:26: POC Glucose 127 H Exam Physical Exam Const alert and oriented x3 General Appearance: cooperative HEENT normocephalic HEENT Narrative: Bilateral Tympanostomy tubes in place. Eyes General Eye: normal appearance of both eyes Resp normal respiratory effort, no use of accessory muscles and clear to auscultation bilaterally Effort and Inspection: able to speak in complete sentences Cardio regular rate and regular rhythm Palpation: normal PMI Psych affect normal Charges/Coding Wound Center CF Procedures HBO Supervision: [id number] Hyperbaric Oxygen; supervision Assessment/Plan Assessment/Plan (1) Type 2 diabetes mellitus with foot ulcer: CODE(S): E11.621 - Type 2 diabetes mellitus with foot ulcer; L97.509 - Non-pressure chronic ulcer of other part of unspecified foot with unspecified severity QUALIFIERS: Diabetes mellitus longterm insulin use: with longterm use Qualified Code(s): E11.621 - Type 2 diabetes mellitus with foot ulcer; L97.509 - Non-pressure chronic ulcer of other part of unspecified foot with unspecified severity; Z79.4 - ferry terminal supervisor (current) use of insulin (2) Non-pressure chronic ulcer of other part of right foot with fat layer exposed: CODE(S): L97.512 - Non-pressure chronic ulcer of other part of right foot with fat layer exposed (3) Type 2 diabetes mellitus with diabetic polyneuropathy: CODE(S): E11.42 - Type 2 diabetes mellitus with diabetic polyneuropathy QUALIFIERS: Diabetes mellitus longterm insulin use: with manager intermediate use Qualified Code(s): E11.42 - Type 2 diabetes mellitus with diabetic polyneuropathy; Z79.4 - ferry terminal supervisor (current) use of insulin (4) Charcot's joint of right foot: CODE(S): M14.671 - Charcot's joint, right ankle and foot PLAN: Plan The patient appears to be tolerating hyperbaric oxygen therapy well, which will be continued as per their medical treatment plan.
[2024-06-22 08:34] LABS: Bedside Glucose 183 mg/dL (74-106)
--- NOTE | 2024-06-22 10:21 | HBO.PN.PCM_ITS ---
History of Present Illness Date of Service: 06/22/24 Chief Complaint: HBO History of Wound: Ms. Falk is a 58-year-old currently being seen at the wound center for right foot/ankle ulcer. Since her initial certification, has had 23 sessions of hyperbaric oxygen therapy which she has tolerated well and there has been corresponding significant improvement in ulcer. 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 Blood glucose readings have been largely stable. No chest pain, tightness, blurry vision or concerns reported. Progress of Wound: Progress: Today's session represents the 39th session. So far, has been approved for a total of 60 sessions. Tolerance: Hyperbaric oxygen therapy was administered as per the facility's protocol. 100% oxygen at 2 KELLY for 90 minutes without air breaks. She tolerated hyperbaric oxygen therapy without any complaints or complications. Upon emergence from the chamber, her vitals remained stable and she was discharged in stable condition. Pre and post blood glucose readings as documented. Objective Data Objective Data Vital Signs: Vital Signs Temp Pulse Resp BP 96.9 F L 87 14 145/76 H 06/21/24 08:36 06/21/24 08:36 06/21/24 08:36 06/21/24 08:36 Lab / Micro Data Labs: Laboratory Results - last 24 hr 06/21/24 10:26: POC Glucose 127 H 06/22/24 08:17: POC Glucose 183 H Exam Physical Exam Const alert and oriented x3 General Appearance: cooperative HEENT normocephalic HEENT Narrative: Bilateral Tympanostomy tubes in place. Eyes General Eye: normal appearance of both eyes Resp normal respiratory effort, no use of accessory muscles and clear to auscultation bilaterally Effort and Inspection: able to speak in complete sentences Cardio regular rate and regular rhythm Palpation: normal PMI Psych affect normal Charges/Coding Wound Center CF Procedures HBO Supervision: [id number] Hyperbaric Oxygen; supervision Assessment/Plan Assessment/Plan (1) Type 2 diabetes mellitus with foot ulcer: CODE(S): E11.621 - Type 2 diabetes mellitus with foot ulcer; L97.509 - Non-pressure chronic ulcer of other part of unspecified foot with unspecified severity QUALIFIERS: Diabetes mellitus mcfp insulin use: with mcfp use Qualified Code(s): E11.621 - Type 2 diabetes mellitus with foot ulcer; L97.509 - Non-pressure chronic ulcer of other part of unspecified foot with unspecified severity; Z79.4 - ocean transportation intermediary (current) use of insulin (2) Non-pressure chronic ulcer of other part of right foot with fat layer exposed: CODE(S): L97.512 - Non-pressure chronic ulcer of other part of right foot with fat layer exposed (3) Type 2 diabetes mellitus with diabetic polyneuropathy: CODE(S): E11.42 - Type 2 diabetes mellitus with diabetic polyneuropathy QUALIFIERS: Diabetes mellitus mcfp insulin use: with terminal make up operator use Qualified Code(s): E11.42 - Type 2 diabetes mellitus with diabetic polyneuropathy; Z79.4 - ocean transportation intermediary (current) use of insulin (4) Charcot's joint of right foot: CODE(S): M14.671 - Charcot's joint, right ankle and foot PLAN: Plan The patient appears to be tolerating hyperbaric oxygen therapy well, which will be continued as per their medical treatment plan.
[2024-06-22 10:50] VITALS: BP 105/72; BP 134/77; PULSE 75; PULSE 81; RESP 15; TEMP 36.1; TEMP 36.3
[2024-06-22 10:56] LABS: Bedside Glucose 107 mg/dL (74-106)
[2024-06-22 11:11] VITALS: BP 144/80; PULSE 75; RESP 18; TEMP 36.1
--- NOTE | 2024-06-22 21:43 | PCM.WC.PN ---
History of Present Illness Date of Service: 06/22/24 Chief Complaint: HBO History of Wound: Ms. Falk is a 58-year-old currently being seen at the wound center for right foot/ankle ulcer. Since her initial certification, has had 23 sessions of hyperbaric oxygen therapy which she has tolerated well and there has been corresponding significant improvement in ulcer. 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 Blood glucose readings have been largely stable. No chest pain, tightness, blurry vision or concerns reported. Progress of Wound: Progress: Today's session represents the 39th session. So far, has been approved for a total of 60 sessions. Tolerance: Hyperbaric oxygen therapy was administered as per the facility's protocol. 100% oxygen at 2 KELLY for 90 minutes without air breaks. She tolerated hyperbaric oxygen therapy without any complaints or complications. Upon emergence from the chamber, her vitals remained stable and she was discharged in stable condition. Pre and post blood glucose readings as documented. Subjective Subjective This is a 58-year-old female who continues to follow with the wound care center for right dorsal foot ulceration. She had previously undergone I&D on 02/10/2024 of the right foot. Continues to heal well and is changing outer dressing as needed leaving graft in place to Right foot. Continues HBO dives following tube placement in ears and is doing well. Ulcer site continues improvement with HBO therapy. She feels ulceration continuing to get smaller. Denies constitutional symptoms. Denies further complaints. Objective Data Objective Data Vital Signs: Vital Signs Temp Pulse Resp BP 97 F L 75 18 144/80 H 06/22/24 11:11 06/22/24 11:11 06/22/24 11:11 06/22/24 11:11 Lab / Micro Data Labs: Laboratory Results - last 24 hr 06/22/24 08:17: POC Glucose 183 H 06/22/24 10:39: POC Glucose 107 H Physical Exam Const alert, oriented x3 and no apparent distress General Appearance: cooperative HEENT normocephalic Eyes General Eye: normal appearance of both eyes Neck General: normal visual inspection Lymph Lymphatic: no lymphadenopathy noted and no lymphedema noted Resp normal respiratory effort Cardio regular rate and regular rhythm Extremity no calf tenderness and no pedal edema Extremity Narrative: Right lower extremity: Vascular: DP and PT pulses palpable with adequate capillary fill time to the digits. Normal temperature gradient. Hair growth is absent to the digits. Neurologic: Gross sensation intact. Absent protective sensation consistent with diabetic peripheral polyneuropathy Musculoskeletal: No pain to palpation about the ulcerative site secondary to diabetic peripheral polyneuropathy. There is a Charcot foot deformity noted of the right foot. No pain to palpation about the ulcerative site. Dermatologic: Incision site medial foot healed with cicatrix. No signs of infection. Incision site anterior leg with cicatrix proximally and distally. No signs of infection. There is a full thickness ulceration dorsally along the midfoot medial to the incision site with healthy granular tissue and some hypergranular tissue. Ulceration continues improvement with reduction in size. Ulceration site demonstrates no signs of infection. Skin no rashes or lesions noted and skin turgor normal Neuro moves all extremities Debridement Note Debridement Note Wound debrided: Right foot Laterality: Right Wound Grade/Stage: Gonzalez stage III Type of Debridement: Excisional debridement Anesthesia Used: 5% Lidocaine Gel Depth: Down to and including healthy tissue and in the subcutaneous layer Percentage of wound debrided: 100 Instrument Used: 7mm curette, #15 blade and Forceps Tissue Removed: Fibrous, devitalized subcutaneous, biofilm, slough Severity: Fat Layer Exposed Amount of bleeding with debridement: Mild Bleeding Controlled with: Compression and gauze Patient tolerated procedure: Patient tolerated procedure well Post-Debridement Measurements and Additional Note: Post-Debridement Measurements/Treatment WC - Nurse 1 - General Ulcer Assessment Start: 05/25/24 10:53 Freq: Status: Active Protocol: ALISSA.[email or web address] Activity Type Activity Date Activity User E-sign Co-sign Detail Recorded Client Recorded Date Recorded By Document 05/25/24 10:54 DL [id number] 05/25/24 11:04 DL Document 06/01/24 11:05 RB [id number] 06/01/24 11:08 RB Document 06/15/24 11:29 RB [id number] 06/15/24 11:31 RB Edit Result 06/15/24 11:29 RB (1) [id number] 06/15/24 11:33 RB Document 06/22/24 11:11 DL [id number] 06/22/24 11:19 DL (1) Pulse Rate (60-100) => 82 Blood Pressure (90/60-120/80) => 130/75 H Blood Pressure Mean (mm Hg) => 93 05/25/24 06/01/24 06/15/24 10:54 11:05 11:29 WC - Today's Visit Information Type of service Follow-up Visit Follow-up Visit Follow-up Visit (Physician/CONSOLE OPERATOR (Physician/CONSOLE OPERATOR (Physician/CONSOLE OPERATOR ) ) ) Arrival Mode Ambulatory Ambulatory Ambulatory Transfer Assistance None None None Patient Identification Verified (Name & Yes Yes Yes ) Patient Requires Transmission-Based No No No Precautions Finger Stick Blood Sugar(mg/dl) (if 109 121 indicated): Blood Sugar Done During Done During this Visit this Visit Vital Signs Temperature (97.8 F-99.1 F) 97 F L 96.5 F L 97 F L Temperature Source Temporal Temporal Temporal Pulse Rate (60-100) 69 77 82 Pulse Location Monitor Monitor Monitor Respiratory Rate (12-18) 16 18 18 Respiratory rate source Observation Observation Observation Blood Pressure (90/60-120/80) 123/69 H 133/77 H 130/75 H Blood Pressure Mean (mm Hg) 87 95 93 Source Monitor Monitor Monitor Position Semi-Fowlers Sitting Blood Pressure Location Left Arm Left Arm History Since Last Visit- (Skip if this is Patient's initial visit) Have you changed medications since your No No No last visit? Any new allergies or adverse reactions No No No Had a fall/change in ADL's that may No No No increase risk of falls Signs or symptoms of abuse and/or No No No neglect since last visit Have you been in the hospital since your No No No last visit? Has dressing in place as prescribed Yes Yes Yes Has compression in place as prescribed Yes Yes Yes Has offloadiing in place as prescribed Yes Yes N/A Experienced any changes in pain level or No No No management Left Footwear Regular Shoe Right Footwear Removable Cast Walker/Walking Boot Pain Scale: 0-10 Numeric Is Patient Pain Free? Yes No Yes RLE -Description Aching -Intensity 6 -Duration (hours) Acute -Pain Behavior Irritability -Pain Aggravating Factors ADL's -Alleviating Factors/Interventions Medication -Effectiveness of Alleviating Factor/ Moderately Intervention effective 06/22/24 11:11 WC - Today's Visit Information Type of service Follow-up Visit (Physician/CONSOLE OPERATOR ) Arrival Mode Ambulatory Transfer Assistance None Patient Identification Verified (Name & Yes ) Patient Requires Transmission-Based No Precautions Finger Stick Blood Sugar(mg/dl) (if indicated): Blood Sugar Vital Signs Temperature (97.8 F-99.1 F) 97 F L Temperature Source Temporal Pulse Rate (60-100) 75 Pulse Location Monitor Respiratory Rate (12-18) 18 Respiratory rate source Observation Blood Pressure (90/60-120/80) 144/80 H Blood Pressure Mean (mm Hg) 101 Source Monitor Position Blood Pressure Location History Since Last Visit- (Skip if this is Patient's initial visit) Have you changed medications since your No last visit? Any new allergies or adverse reactions No Had a fall/change in ADL's that may No increase risk of falls Signs or symptoms of abuse and/or No neglect since last visit Have you been in the hospital since your No last visit? Has dressing in place as prescribed Yes Has compression in place as prescribed Yes Has offloadiing in place as prescribed Yes Experienced any changes in pain level or No management Left Footwear Right Footwear Removable Cast Walker/Walking Boot Pain Scale: 0-10 Numeric Is Patient Pain Free? Yes RLE -Description -Intensity -Duration (hours) -Pain Behavior -Pain Aggravating Factors -Alleviating Factors/Interventions -Effectiveness of Alleviating Factor/ Intervention WC - Nurse 1 - General Ulcer Measurement Start: 05/25/24 10:53 Freq: Status: Active Protocol: Activity Type Activity Date Activity User E-sign Co-sign Detail Recorded Client Recorded Date Recorded By Document 05/25/24 10:54 DL [id number] 05/25/24 11:04 DL Document 06/01/24 11:05 RB [id number] 06/01/24 11:08 RB Document 06/15/24 11:29 RB [id number] 06/15/24 11:31 RB Document 06/22/24 11:11 DL [id number] 06/22/24 11:19 DL 05/25/24 06/01/24 06/15/24 10:54 11:05 11:29 Wound Center Nurse 1 #5 RDorsal/Anterior Ankle -Combined with other wound No No -Current Size (cm) - Length 3.5 3.5 1.3 -Current Size (cm) - Width 2.3 2 1.6 -Current Size (cm) - Depth 0.1 0.1 0.1 -Total Square Cm 8.05 7.0 2.08 -Photo Taken Yes Yes Yes -Tunneling No No -Undermining/Tunneling No No -Circular Undermining No No -Exudate Amt Medium Large Medium -Exudate Type Serosanguineous Serosanguineous Serosanguineous -Wound Margin Distinct, Flat & Intact Distinct, Outline Outline Attached Attached -Granulation Amt None Present (0 Small (1-33%) Medium (34-66%) %) -Granulation Quality Hyper- Duvall Duvall granulation -Slough/Fibrin Yes Yes -Necrosis Amt Large (67-100%) Large (67-100%) Medium (34-66%) -Necrotic Tissue Type Adherent Slough Adherent Slough Adherent Slough -Structure Exposed N/A N/A N/A -Texture (Marie-wound Skin Appearance) Scarring Assessed Assessed, Scarring -Moisture (Marie-wound Skin Appearance) No Abnormality Maceration Assessed, Maceration -Color (Marie-wound Skin Appearance) No Abnormality Assessed Assessed -Temperature (Marie-wound Skin No Abnormality No Abnormality No Abnormality Appearance) (Pt Warm) (Pt Warm) (Pt Warm) -Tenderness on Palpation (Marie-wound No No Skin Appearance) -Ulcer Cleansing Soap and Water Wound Cleanser Wound Cleanser -Foul Odor after Cleansing No No No -Anesthetic Used 5% Lidocaine 5% Lidocaine 5% Lidocaine Gel Gel Gel Lower Limb Edema Present Yes Left Calf (cm) 34.5 Left Ankle (cm) 22 06/22/24 11:11 Wound Center Nurse 1 #5 RDorsal/Anterior Ankle -Combined with other wound -Current Size (cm) - Length 3 -Current Size (cm) - Width 1.5 -Current Size (cm) - Depth 0.1 -Total Square Cm 4.5 -Photo Taken Yes -Tunneling -Undermining/Tunneling -Circular Undermining -Exudate Amt Medium -Exudate Type Serosanguineous -Wound Margin Distinct, Outline Attached -Granulation Amt Medium (34-66%) -Granulation Quality Hyper- granulation, Duvall -Slough/Fibrin -Necrosis Amt Medium (34-66%) -Necrotic Tissue Type Adherent Slough -Structure Exposed N/A -Texture (Marie-wound Skin Appearance) Scarring -Moisture (Marie-wound Skin Appearance) No Abnormality -Color (Marie-wound Skin Appearance) No Abnormality -Temperature (Marie-wound Skin No Abnormality Appearance) (Pt Warm) -Tenderness on Palpation (Marie-wound No Skin Appearance) -Ulcer Cleansing Soap and Water -Foul Odor after Cleansing No -Anesthetic Used 5% Lidocaine Gel Lower Limb Edema Present Left Calf (cm) Left Ankle (cm) WC - Nurse 2 - General Ulcer CM Notes Start: 05/25/24 10:53 Freq: Status: Active Protocol: Activity Type Activity Date Activity User E-sign Co-sign Detail Recorded Client Recorded Date Recorded By Document 05/25/24 11:12 [facility] [id number] 05/25/24 11:47 [facility] Document 06/01/24 11:16 [facility] [id number] 06/01/24 11:33 [facility] Document 06/15/24 11:53 [facility] [id number] 06/15/24 12:05 [facility] Document 06/22/24 11:23 [facility] [id number] 06/22/24 11:41 BMF 05/25/24 06/01/24 06/15/24 11:12 11:16 11:53 Wound Center Nurse 2 #5 RDorsal/Anterior Ankle -Time 11:14 11:16 11:53 -Correct Patient Yes Yes Yes -Correct Side, Site, Position Yes Yes Yes -Correct Procedure Yes Yes Yes -Procedure Performed Yes Yes Yes -Type of Procedure Debridement Debridement Debridement -Clinical Debridement Subcutaneous Subcutaneous Subcutaneous -Tissue Removed Subcutaneous Subcutaneous Subcutaneous -Post Debridement (cm) - Length 3 3 2.4 -Post Debridement (cm) - Width 2.3 1.8 2 -Post Debridement (cm) - Depth 0.1 0.1 0.1 -Total Square (Post) (cm) 6.9 5.4 4.8 -Area of Debridement (cm) - Length 3 3 2.4 -Area of Debridement (cm) - Width 2.3 1.8 2 -Total Square (Area) (cm) 6.9 5.4 4.8 -Tunneling No No No -Undermining/Tunneling No No No -Circular Undermining No No No -Wound/Ulcer Outcome Not Healed Not Healed Not Healed -Ulcer Cleansing Rinsed/ Rinsed/ Rinsed/ Irrigated with Irrigated with Irrigated with Saline Saline Saline -Foul Odor after Cleansing No No No -Bioengineered Tissue No Yes No -Type of Bioengineered Tissue Epifix Mesh Epifix Mesh -Expiration Date 11/21/28 11/21/28 -Product Lot Number [id number] -Percent Used 100 100 -Lot number of Saline Used [id number] -Bleeding Controlled with Pressure, Pressure,Silver Pressure SURGIFOAM Nitrate -Other Type of Bleeding Control bovie used -Treatment Response Procedure Procedure Procedure Tolerated Well Tolerated Well Tolerated Well -Offloading Yes -Type of Offloading Camwalker -Debridement - Subq, 1st 20sq cm No No Yes -Apply Skin Sub - 1st 25 sq cm - Feet 1 1 -Epifix Mesh (per sq cm) 11 11 Pain Scale: 0-10 Numeric Is Patient Pain Free? Yes Yes Yes 06/22/24 11:23 Wound Center Nurse 2 #5 RDorsal/Anterior Ankle -Time 11:24 -Correct Patient Yes -Correct Side, Site, Position Yes -Correct Procedure Yes -Procedure Performed Yes -Type of Procedure Debridement -Clinical Debridement Subcutaneous -Tissue Removed Subcutaneous -Post Debridement (cm) - Length 2.5 -Post Debridement (cm) - Width 1.5 -Post Debridement (cm) - Depth 0.1 -Total Square (Post) (cm) 3.75 -Area of Debridement (cm) - Length 2.5 -Area of Debridement (cm) - Width 1.5 -Total Square (Area) (cm) 3.75 -Tunneling No -Undermining/Tunneling No -Circular Undermining No -Wound/Ulcer Outcome Not Healed -Ulcer Cleansing Rinsed/ Irrigated with Saline -Foul Odor after Cleansing No -Bioengineered Tissue No -Type of Bioengineered Tissue -Expiration Date -Product Lot Number -Percent Used -Lot number of Saline Used -Bleeding Controlled with Pressure,Silver Nitrate -Other Type of Bleeding Control -Treatment Response Procedure Tolerated Well -Offloading -Type of Offloading -Debridement - Subq, 1st 20sq cm Yes -Apply Skin Sub - 1st 25 sq cm - Feet -Epifix Mesh (per sq cm) Pain Scale: 0-10 Numeric Is Patient Pain Free? Yes - Nurse 3 - General Ulcer D/C NN Start: 05/25/24 10:53 Freq: Status: Active Protocol: Activity Type Activity Date Activity User E-sign Co-sign Detail Recorded Client Recorded Date Recorded By Document 05/25/24 11:55 DL [id number] 05/25/24 11:57 DL Document 06/01/24 11:42 KW [id number] 06/01/24 11:48 KW Document 06/15/24 12:17 DL [id number] 06/15/24 12:19 DL Document 06/22/24 11:53 DL [id number] 06/22/24 11:54 DL 05/25/24 06/01/24 06/15/24 11:55 11:42 12:17 Wound Care Center Nurse 3 #5 RDorsal/Anterior Ankle -Ulcer Cleansing Rinsed/ Irrigated with Saline -Foul Odor after Cleansing No No -Primary Dressing Applied Aquacel Extra, Aquacel Extra Surgifoam -Primary Dressing Applied C Hydrogel ($), Collagen Powder ($) -Other Dressing Epimesh -Primary Dressing Covered/Secured with Dry Gauze & Dry Gauze & Dry Gauze & Roll Gauze, Roll Gauze, Roll Gauze, Secured with Secured with Secured with Tape Tape Tape -Other Covering SEBASTIAN -Aquacel Extra 1 1 -Surgifoam 12-7mm (3/4 x 2 3/8) 2 -Wound Comment(s) Hosea used today per Dr. Lewis. Right -Compression Wrap Sebastian Wrap Sebastian Wrap Treatment Response Procedure Procedure Tolerated Well Tolerated Well Pain Scale: 0-10 Numeric Is Patient Pain Free? Yes Yes Yes WC - Visit Discharge Discharge Condition Stable Stable Stable Ambulatory Status Ambulatory Ambulatory Ambulatory Transportation Private Auto Private Auto Private Auto Medication Reconcilliation completed & No provided to patient/care provider Clinical Summary of Care Provided Yes Facility Type [facility] Orders Sent Yes Yes 06/22/24 11:53 Wound Care Center Nurse 3 #5 RDorsal/Anterior Ankle -Ulcer Cleansing Rinsed/ Irrigated with Saline -Foul Odor after Cleansing No -Primary Dressing Applied -Primary Dressing Applied Aquacel Extra -Other Dressing hydrogel, purachol -Primary Dressing Covered/Secured with Dry Gauze & Roll Gauze, Secured with Tape -Other Covering SEBASTIAN -Aquacel Extra 1 -Surgifoam 12-7mm (3/4 x 2 3/8) -Wound Comment(s) Right -Compression Wrap Treatment Response Procedure Tolerated Well Pain Scale: 0-10 Numeric Is Patient Pain Free? Yes WC - Visit Discharge Discharge Condition Stable Ambulatory Status Ambulatory Transportation Private Auto Medication Reconcilliation completed & provided to patient/care provider Clinical Summary of Care Provided Facility Type Orders Sent Assessment/Plan Assessment/Plan (1) Non-pressure chronic ulcer of other part of right foot with fat layer exposed: CODE(S): L97.512 - Non-pressure chronic ulcer of other part of right foot with fat layer exposed (2) Type 2 diabetes mellitus with diabetic polyneuropathy: CODE(S): E11.42 - Type 2 diabetes mellitus with diabetic polyneuropathy QUALIFIERS: Diabetes mellitus fdc insulin use: with computer terminal operator use Qualified Code(s): E11.42 - Type 2 diabetes mellitus with diabetic polyneuropathy; Z79.4 - retirement (current) use of insulin (3) Charcot's joint of right foot: CODE(S): M14.671 - Charcot's joint, right ankle and foot (4) Type 2 diabetes mellitus with foot ulcer: CODE(S): E11.621 - Type 2 diabetes mellitus with foot ulcer; L97.509 - Non-pressure chronic ulcer of other part of unspecified foot with unspecified severity QUALIFIERS: Diabetes mellitus computer terminal operator insulin use: with computer terminal operator use Qualified Code(s): E11.621 - Type 2 diabetes mellitus with foot ulcer; L97.509 - Non-pressure chronic ulcer of other part of unspecified foot with unspecified severity; Z79.4 - retirement (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 DOS 02/10/2024, POD #133 Cicatrix at incision sites medial foot and anterior leg with no signs of infection. Ulceration dorsal foot continues granulating in well versus her previous visit. She continues healing well at this time and continues HBO dives following tube placement. Ulceration predebridement measures 2.4 cm x 1.4 cm x 0.1 cm Ulceration did undergo debridement as noted on clinical panel above. Chemical (24522) cauterization was not performed of the hypergranular tissue today. Postdebridement measurements 2.5 cm x 1.5 cm x 0.1 cm. Has completed all 10 applications of EpiFix #10. Collagen powder moistened with hydrogel applied to the ulcerative bed today. Aquacel Ag and DSD applied. She is to change dressing daily. Ulceration continues reduction in size. Overall healing well. She was approved for EpiFix, completed all 10 applications. Has previously completed oral antibiotic doxycycline 100 mg twice daily and Augmentin 875mg daily. Will be permitted to continue protective weightbearing to the right lower extremity in CAM boot. Previously discussed medical clearance for HBO and she has been cleared by Dr. Howard. She will continue HBO dives as this is essential to her healing. She has had previous lab work drawn while in hospital 03/08/2024 [facility]. Did have chest x-ray during her hospital stay in January 2024 along with echocardiogram. Did undergo EKG for evaluation prior to dive. HgbA1c during hospital admission was 11.3% on 02/15/2024. Sugars have been well controlled following approval of insulin on new insurance. I do expect her A1c to continue to decrease. PICC removed 03/31/24. Following with ID. The following work up and care recommendations were made: Dressing: Collagen powder moistened with hydrogel, Aquacel Ag, dry sterile dressing right foot. Change daily Wash: Soap and water Tissue growth optimization: Collagen powder and hydrogel Offload: Nonweightbearing to the right lower extremity Vascular: DP and PT pulses palpable with adequate capillary fill time. Vascular status not impacting healing at this time. Edema: Edema well-controlled. Will continue with Tubigrip stocking application Infection: No signs of infection. Currently on IV antibiotics via PICC line. Will continue daptomycin and Unasyn per ID Pain: No pain to the ulcerative site secondary to diabetic peripheral polyneuropathy Host factors: DM type II with peripheral polyneuropathy, uncontrolled. Charcot foot right foot At this time prognosis is good and she continues healing well. Will continue HBO therapy as this is aiding in wound healing. I answered all the patient's questions. To return to the wound healing center in 1 week or call sooner if the patient has any questions or concerns.
[2024-06-23 08:46] LABS: Bedside Glucose 233 mg/dL (74-106)
[2024-06-23 10:19] VITALS: BP 110/69; BP 128/70; PULSE 111; PULSE 80; RESP 14; RESP 16; TEMP 35.8; TEMP 36.1
[2024-06-23 10:58] LABS: Bedside Glucose 119 mg/dL (74-106)
--- NOTE | 2024-06-23 11:42 | WC ---
PHOTO 06/22/24 RIGHT DORSAL FOOT
--- NOTE | 2024-06-23 14:50 | PCM.HBO.PN ---
History of Present Illness Date of Service: 06/23/24 Chief Complaint: HBO History of Wound: Ms. Falk is a 58-year-old currently being seen at the wound center for right foot/ankle ulcer. Since her initial certification, has had 23 sessions of hyperbaric oxygen therapy which she has tolerated well and there has been corresponding significant improvement in ulcer. 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 Blood glucose readings have been largely stable. No chest pain, tightness, blurry vision or concerns reported. Progress of Wound: Progress: Today's session represents the 40th session. She has been approved for a total of 60 sessions. Tolerance: Hyperbaric oxygen therapy was administered as per the facility's protocol. 100% oxygen at 2 KELLY for 90 minutes without air breaks. She tolerated hyperbaric oxygen therapy without any complaints or complications. Upon emergence from the chamber, her vitals remained stable and she was discharged in stable condition. Pre and post blood glucose readings as documented. Objective Data Objective Data Vital Signs: Vital Signs Temp Pulse Resp BP 96.4 F L 111 H 16 128/70 H 06/23/24 10:19 06/23/24 10:19 06/23/24 10:19 06/23/24 10:19 Lab / Micro Data Labs: Laboratory Results - last 24 hr 06/23/24 08:28: POC Glucose 233 H 06/23/24 10:40: POC Glucose 119 H Exam Physical Exam Const alert, oriented x3 and no apparent distress General Appearance: cooperative HEENT normocephalic HEENT Narrative: Bilateral Tympanostomy tubes in place. Eyes General Eye: normal appearance of both eyes Resp normal respiratory effort, no use of accessory muscles and clear to auscultation bilaterally Effort and Inspection: able to speak in complete sentences Cardio regular rate and regular rhythm Palpation: normal PMI Psych mental status grossly normal, thought process normal, cooperative, affect normal and speech normal Nursing Assessment and Debridement Post-Debridement Measurements and Additional Note: Post-Debridement Measurements/Treatment WC - Nurse 1 - General Ulcer Assessment Start: 05/25/24 10:53 Freq: Status: Active Protocol: RUKHSANA Activity Type Activity Date Activity User E-sign Co-sign Detail Recorded Client Recorded Date Recorded By Document 06/22/24 11:11 DL [id number] 06/22/24 11:19 DL 06/22/24 11:11 - Today's Visit Information Type of service Follow-up Visit (Physician/PUBLIC AREA ATTENDANT ) Arrival Mode Ambulatory Transfer Assistance None Patient Identification Verified (Name & Yes ) Patient Requires Transmission-Based No Precautions Vital Signs Temperature (97.8 F-99.1 F) 97 F L Temperature Source Temporal Pulse Rate (60-100) 75 Pulse Location Monitor Respiratory Rate (12-18) 18 Respiratory rate source Observation Blood Pressure (90/60-120/80) 144/80 H Blood Pressure Mean (mm Hg) 101 Source Monitor History Since Last Visit- (Skip if this is Patient's initial visit) Have you changed medications since your No last visit? Any new allergies or adverse reactions No Had a fall/change in ADL's that may No increase risk of falls Signs or symptoms of abuse and/or No neglect since last visit Have you been in the hospital since your No last visit? Has dressing in place as prescribed Yes Has compression in place as prescribed Yes Has offloadiing in place as prescribed Yes Experienced any changes in pain level or No management Right Footwear Removable Cast Walker/Walking Boot Pain Scale: 0-10 Numeric Is Patient Pain Free? Yes - Nurse 1 - General Ulcer Measurement Start: 05/25/24 10:53 Freq: Status: Active Protocol: Activity Type Activity Date Activity User E-sign Co-sign Detail Recorded Client Recorded Date Recorded By Document 06/22/24 11:11 DL [id number] 06/22/24 11:19 DL 06/22/24 11:11 Wound Center Nurse 1 #5 RDorsal/Anterior Ankle -Current Size (cm) - Length 3 -Current Size (cm) - Width 1.5 -Current Size (cm) - Depth 0.1 -Total Square Cm 4.5 -Photo Taken Yes -Exudate Amt Medium -Exudate Type Serosanguineous -Wound Margin Distinct, Outline Attached -Granulation Amt Medium (34-66%) -Granulation Quality Hyper- granulation, [place] -Necrosis Amt Medium (34-66%) -Necrotic Tissue Type Adherent Slough -Structure Exposed N/A -Texture (Marie-wound Skin Appearance) Scarring -Moisture (Marie-wound Skin Appearance) No Abnormality -Color (Marie-wound Skin Appearance) No Abnormality -Temperature (Marie-wound Skin No Abnormality Appearance) (Pt Warm) -Tenderness on Palpation (Marie-wound No Skin Appearance) -Ulcer Cleansing Soap and Water -Foul Odor after Cleansing No -Anesthetic Used 5% Lidocaine Gel - Nurse 2 - General Ulcer CM Notes Start: 05/25/24 10:53 Freq: Status: Active Protocol: Activity Type Activity Date Activity User E-sign Co-sign Detail Recorded Client Recorded Date Recorded By Document 06/22/24 11:23 [facility] [id number] 06/22/24 11:41 [facility] 06/22/24 11:23 Wound Center Nurse 2 -Time 11:24 -Correct Patient Yes -Correct Side, Site, Position Yes -Correct Procedure Yes -Procedure Performed Yes -Type of Procedure Debridement -Clinical Debridement Subcutaneous -Tissue Removed Subcutaneous -Post Debridement (cm) - Length 2.5 -Post Debridement (cm) - Width 1.5 -Post Debridement (cm) - Depth 0.1 -Total Square (Post) (cm) 3.75 -Area of Debridement (cm) - Length 2.5 -Area of Debridement (cm) - Width 1.5 -Total Square (Area) (cm) 3.75 -Tunneling No -Undermining/Tunneling No -Circular Undermining No -Wound/Ulcer Outcome Not Healed -Ulcer Cleansing Rinsed/ Irrigated with Saline -Foul Odor after Cleansing No -Bioengineered Tissue No -Bleeding Controlled with Pressure,Silver Nitrate -Treatment Response Procedure Tolerated Well -Debridement - Subq, 1st 20sq cm Yes Pain Scale: 0-10 Numeric Is Patient Pain Free? Yes - Nurse 3 - General Ulcer D/C NN Start: 05/25/24 10:53 Freq: Status: Active Protocol: Activity Type Activity Date Activity User E-sign Co-sign Detail Recorded Client Recorded Date Recorded By Document 06/22/24 11:53 DL [id number] 06/22/24 11:54 DL 06/22/24 11:53 Wound Care Center Nurse 3 #5 RDorsal/Anterior Ankle -Ulcer Cleansing Rinsed/ Irrigated with Saline -Foul Odor after Cleansing No -Primary Dressing Applied Aquacel Extra -Other Dressing hydrogel, purachol -Primary Dressing Covered/Secured with Dry Gauze & Roll Gauze, Secured with Tape -Other Covering ARMANDO -Aquacel Extra 1 Treatment Response Procedure Tolerated Well Pain Scale: 0-10 Numeric Is Patient Pain Free? Yes WC - Visit Discharge Discharge Condition Stable Ambulatory Status Ambulatory Transportation Private Auto Assessment/Plan Assessment/Plan (1) Type 2 diabetes mellitus with foot ulcer: CODE(S): E11.621 - Type 2 diabetes mellitus with foot ulcer; L97.509 - Non-pressure chronic ulcer of other part of unspecified foot with unspecified severity QUALIFIERS: Diabetes mellitus chcf insulin use: with chcf use Qualified Code(s): E11.621 - Type 2 diabetes mellitus with foot ulcer; L97.509 - Non-pressure chronic ulcer of other part of unspecified foot with unspecified severity; Z79.4 - skilled nursing (current) use of insulin (2) Non-pressure chronic ulcer of other part of right foot with fat layer exposed: CODE(S): L97.512 - Non-pressure chronic ulcer of other part of right foot with fat layer exposed (3) Type 2 diabetes mellitus with diabetic polyneuropathy: CODE(S): E11.42 - Type 2 diabetes mellitus with diabetic polyneuropathy QUALIFIERS: Diabetes mellitus chcf insulin use: with chcf use Qualified Code(s): E11.42 - Type 2 diabetes mellitus with diabetic polyneuropathy; Z79.4 - skilled nursing (current) use of insulin (4) Charcot's joint of right foot: CODE(S): M14.671 - Charcot's joint, right ankle and foot PLAN: Plan The patient appears to be tolerating hyperbaric oxygen therapy well, which will be continued as per their medical treatment plan.
== END 2024-06-23 23:59 | disposition home or self-care (01) ==
LOC: WC 08:00
PROVIDERS: PCP Family Medicine; Referring Provider Student in an Organized Health Care Education/Training Program; Visit Provider Student in an Organized Health Care Education/Training Program
DX: E11.621 Type 2 diabetes mellitus with foot ulcer (principal); L97.512 Non-pressure chronic 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; E11.610 Type 2 diabetes mellitus with diabetic neuropathic arthropathy; E11.42 Type 2 diabetes mellitus with diabetic polyneuropathy; Z79.4 Long term (current) use of insulin; E03.9 Hypothyroidism, unspecified; G47.419 Narcolepsy without cataplexy; Z79.890 Hormone replacement therapy; Z79.1 Long term (current) use of non-steroidal anti-inflammatories (NSAID); Z79.891 Long term (current) use of opiate analgesic; Z87.891 Personal history of nicotine dependence; Z87.39 Personal history of other diseases of the musculoskeletal system and connective tissue
CPT/HCPCS: 11042; 15275; 82962; 99183; Q4186; G0277

== ENCOUNTER 2024-07-21 08:00 | Outpatient (RCR) | payer MEDICAID, SELFPAY ==
[2024-06-24 02:25] VITALS: BP 110/69; BP 128/70; BP 144/80; PULSE 111; PULSE 75; PULSE 80; RESP 14; RESP 16; RESP 18; TEMP 35.8; TEMP 36.1
[2024-06-26 08:41] LABS: Bedside Glucose 164 mg/dL (74-106)
[2024-06-26 11:04] LABS: Bedside Glucose 117 mg/dL (74-106)
[2024-06-26 11:06] VITALS: BP 101/64; BP 110/56; PULSE 79; PULSE 88; RESP 15; RESP 16; TEMP 35.5; TEMP 35.8
--- NOTE | 2024-06-26 11:34 | PCM.HBO.PN ---
History of Present Illness Date of Service: 06/26/24 Chief Complaint: HBO History of Wound: Ms. Falk is a 58-year-old currently being seen at the wound center for right foot/ankle ulcer. Since her initial certification, has had 23 sessions of hyperbaric oxygen therapy which she has tolerated well and there has been corresponding significant improvement in ulcer. 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 Blood glucose readings have been largely stable. No chest pain, tightness, blurry vision or concerns reported. Progress of Wound: Progress: Today's session represents the 41st session. She has been approved for a total of 60 sessions. Tolerance: Hyperbaric oxygen therapy was administered as per the facility's protocol. 100% oxygen at 2 KELLY for 90 minutes without air breaks. She tolerated hyperbaric oxygen therapy without any complaints or complications. Upon emergence from the chamber, her vitals remained stable and she was discharged in stable condition. Pre and post blood glucose readings as documented. Objective Data Objective Data Vital Signs: Vital Signs Temp Pulse Resp BP 96.5 F L 88 16 110/56 L 06/26/24 11:06 06/26/24 11:06 06/26/24 11:06 06/26/24 11:06 Lab / Micro Data Labs: Laboratory Results - last 24 hr 06/26/24 08:24: POC Glucose 164 H 06/26/24 10:47: POC Glucose 117 H Exam Physical Exam Const alert, oriented x3 and no apparent distress General Appearance: cooperative HEENT normocephalic HEENT Narrative: Bilateral Tympanostomy tubes in place. Eyes General Eye: normal appearance of both eyes Resp normal respiratory effort, no use of accessory muscles and clear to auscultation bilaterally Effort and Inspection: able to speak in complete sentences Cardio regular rate and regular rhythm Palpation: normal PMI Psych mental status grossly normal, thought process normal, cooperative, affect normal and speech normal Charges/Coding Wound Center CF Procedures HBO Supervision: [id number] Hyperbaric Oxygen; supervision Assessment/Plan Assessment/Plan (1) Type 2 diabetes mellitus with foot ulcer: CODE(S): E11.621 - Type 2 diabetes mellitus with foot ulcer; L97.509 - Non-pressure chronic ulcer of other part of unspecified foot with unspecified severity QUALIFIERS: Diabetes mellitus care home insulin use: with care home use Qualified Code(s): E11.621 - Type 2 diabetes mellitus with foot ulcer; L97.509 - Non-pressure chronic ulcer of other part of unspecified foot with unspecified severity; Z79.4 - long-term (current) use of insulin (2) Non-pressure chronic ulcer of other part of right foot with fat layer exposed: CODE(S): L97.512 - Non-pressure chronic ulcer of other part of right foot with fat layer exposed (3) Type 2 diabetes mellitus with diabetic polyneuropathy: CODE(S): E11.42 - Type 2 diabetes mellitus with diabetic polyneuropathy QUALIFIERS: Diabetes mellitus dedicated intermodal truck driver insulin use: with care home use Qualified Code(s): E11.42 - Type 2 diabetes mellitus with diabetic polyneuropathy; Z79.4 - superintendent terminal (current) use of insulin (4) Charcot's joint of right foot: CODE(S): M14.671 - Charcot's joint, right ankle and foot PLAN: Plan The patient appears to be tolerating hyperbaric oxygen therapy well, which will be continued as per their medical treatment plan.
[2024-06-27 08:34] LABS: Bedside Glucose 165 mg/dL (74-106)
[2024-06-27 10:13] VITALS: BP 117/64; BP 117/68; PULSE 72; PULSE 86; RESP 14; RESP 15; TEMP 35.9; TEMP 36.1
[2024-06-27 10:49] LABS: Bedside Glucose 105 mg/dL (74-106)
--- NOTE | 2024-06-27 14:00 | HBO.PN.PCM_ITS ---
History of Present Illness Date of Service: 06/27/24 Chief Complaint: HBO History of Wound: Ms. Falk is a 58-year-old currently being seen at the wound center for right foot/ankle ulcer. Since her initial certification, has had 23 sessions of hyperbaric oxygen therapy which she has tolerated well and there has been corresponding significant improvement in ulcer. 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 Blood glucose readings have been largely stable. No chest pain, tightness, blurry vision or concerns reported. Progress of Wound: Progress: Today's session represents the 42nd session. She has been approved for a total of 60 sessions. Tolerance: Hyperbaric oxygen therapy was administered as per the facility's protocol. 100% oxygen at 2 KELLY for 90 minutes without air breaks. She tolerated hyperbaric oxygen therapy without any complaints or complications. Upon emergence from the chamber, her vitals remained stable and she was discharged in stable condition. Pre and post blood glucose readings as documented. Objective Data Objective Data Vital Signs: Vital Signs Temp Pulse Resp BP 96.9 F L 86 15 117/68 06/27/24 10:13 06/27/24 10:13 06/27/24 10:13 06/27/24 10:13 Lab / Micro Data Labs: Laboratory Results - last 24 hr 06/27/24 08:16: POC Glucose 165 H 06/27/24 10:32: POC Glucose 105 Exam Physical Exam Const alert, oriented x3 and no apparent distress General Appearance: cooperative HEENT normocephalic HEENT Narrative: Bilateral Tympanostomy tubes in place. Eyes General Eye: normal appearance of both eyes Resp normal respiratory effort, no use of accessory muscles and clear to auscultation bilaterally Effort and Inspection: able to speak in complete sentences Cardio regular rate and regular rhythm Palpation: normal PMI Psych mental status grossly normal, thought process normal, cooperative, affect normal and speech normal Charges/Coding Wound Center CF Procedures HBO Supervision: [id number] Hyperbaric Oxygen; supervision Assessment/Plan Assessment/Plan (1) Type 2 diabetes mellitus with foot ulcer: CODE(S): E11.621 - Type 2 diabetes mellitus with foot ulcer; L97.509 - Non-pressure chronic ulcer of other part of unspecified foot with unspecified s everity QUALIFIERS: Diabetes mellitus nursing home insulin use: with long wall mining machine tender use Qualified Code(s): E11.621 - Type 2 diabetes mellitus with foot ulcer; L97.509 - Non-pressure chronic ulcer of other part of unspecified foot with unspecified severity; Z79.4 - penitentiary (current) use of insulin (2) Non-pressure chronic ulcer of other part of right foot with fat layer exposed: CODE(S): L97.512 - Non-pressure chronic ulcer of other part of right foot with fat layer exposed (3) Type 2 diabetes mellitus with diabetic polyneuropathy: CODE(S): E11.42 - Type 2 diabetes mellitus with diabetic polyneuropathy QUALIFIERS: Diabetes mellitus nursing home insulin use: with nursing home use Qualified Code(s): E11.42 - Type 2 diabetes mellitus with diabetic polyneuropathy; Z79.4 - terminal press operator (current) use of insulin (4) Charcot's joint of right foot: CODE(S): M14.671 - Charcot's joint, right ankle and foot PLAN: Plan The patient appears to be tolerating hyperbaric oxygen therapy well, which will be continued as per their medical treatment plan.
[2024-06-28 08:43] LABS: Bedside Glucose 206 mg/dL (74-106)
--- NOTE | 2024-06-28 10:31 | PCM.HBO.PN ---
History of Present Illness Date of Service: 06/28/24 Chief Complaint: HBO History of Wound: Ms. Falk is a 58-year-old currently being seen at the wound center for right foot/ankle ulcer. Since her initial certification, has had 23 sessions of hyperbaric oxygen therapy which she has tolerated well and there has been corresponding significant improvement in ulcer. 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 Blood glucose readings have been largely stable. No chest pain, tightness, blurry vision or concerns reported. Progress of Wound: Progress: Today's session represents the 43rd session. She has been approved for a total of 60 sessions. Tolerance: Hyperbaric oxygen therapy was administered as per the facility's protocol. 100% oxygen at 2 KELLY for 90 minutes without air breaks. She tolerated hyperbaric oxygen therapy without any complaints or complications. Upon emergence from the chamber, her vitals remained stable and she was discharged in stable condition. Pre and post blood glucose readings as documented. Objective Data Objective Data Vital Signs: Vital Signs Temp Pulse Resp BP 96.9 F L 86 15 117/68 06/27/24 10:13 06/27/24 10:13 06/27/24 10:13 06/27/24 10:13 Lab / Micro Data Labs: Laboratory Results - last 24 hr 06/27/24 10:32: POC Glucose 105 06/28/24 08:23: POC Glucose 206 H Exam Physical Exam Const alert, oriented x3 and no apparent distress General Appearance: cooperative HEENT normocephalic HEENT Narrative: Bilateral Tympanostomy tubes in place. Eyes General Eye: normal appearance of both eyes Resp normal respiratory effort, no use of accessory muscles and clear to auscultation bilaterally Effort and Inspection: able to speak in complete sentences Cardio regular rate and regular rhythm Palpation: normal PMI Psych mental status grossly normal, thought process normal, cooperative, affect normal and speech normal Charges/Coding Wound Center CF Procedures HBO Supervision: [id number] Hyperbaric Oxygen; supervision Assessment/Plan Assessment/Plan (1) Type 2 diabetes mellitus with foot ulcer: CODE(S): E11.621 - Type 2 diabetes mellitus with foot ulcer; L97.509 - Non-pressure chronic ulcer of other part of unspecified foot with unspecified severity QUALIFIERS: Diabetes mellitus mcf[facility] insulin use: with long wall shear operator use Qualified Code(s): E11.621 - Type 2 diabetes mellitus with foot ulcer; L97.509 - Non-pressure chronic ulcer of other part of unspecified foot with unspecified severity; Z79.4 - technician terminal and repeater (current) use of insulin (2) Non-pressure chronic 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: CODE(S): L97.512 - Non-pressure chronic ulcer of other part of right foot with fat layer exposed (3) Type 2 diabetes mellitus with diabetic polyneuropathy: CODE(S): E11.42 - Type 2 diabetes mellitus with diabetic polyneuropathy QUALIFIERS: Diabetes mellitus long wall shear operator insulin use: with long wall shear operator use Qualified Code(s): E11.42 - Type 2 diabetes mellitus with diabetic polyneuropathy; Z79.4 - detention (current) use of insulin (4) Charcot's joint of right foot: CODE(S): M14.671 - Charcot's joint, right ankle and foot PLAN: Plan The patient appears to be tolerating hyperbaric oxygen therapy well, which will be continued as per their medical treatment plan.
[2024-06-28 10:47] VITALS: BP 120/64; BP 123/71; PULSE 77; PULSE 86; RESP 14; RESP 15; TEMP 36; TEMP 36.2
[2024-06-28 10:53] LABS: Bedside Glucose 164 mg/dL (74-106)
[2024-06-29 08:40] LABS: Bedside Glucose 146 mg/dL (74-106)
--- NOTE | 2024-06-29 10:00 | HBO.PN.PCM_ITS ---
History of Present Illness Date of Service: 06/29/24 Chief Complaint: HBO History of Wound: Ms. Falk is a 58-year-old currently being seen at the wound center for right foot/ankle ulcer. Since her initial certification, has had 23 sessions of hyperbaric oxygen therapy which she has tolerated well and there has been corresponding significant improvement in ulcer. 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 Blood glucose readings have been largely stable. No chest pain, tightness, blurry vision or concerns reported. Progress of Wound: Progress: Today's session represents the 44th session. She has been approved for a total of 60 sessions. Tolerance: Hyperbaric oxygen therapy was administered as per the facility's protocol. 100% oxygen at 2 KELLY for 90 minutes without air breaks. She tolerated hyperbaric oxygen therapy without any complaints or complications. Upon emergence from the chamber, her vitals remained stable and she was discharged in stable condition. Pre and post blood glucose readings as documented. Objective Data Objective Data Vital Signs: Vital Signs Temp Pulse Resp BP 96.8 F L 86 14 123/71 H 06/28/24 10:47 06/28/24 10:47 06/28/24 10:47 06/28/24 10:47 Lab / Micro Data Labs: Laboratory Results - last 24 hr 06/28/24 10:36: POC Glucose 164 H 06/29/24 08:23: POC Glucose 146 H Exam Physical Exam Const alert, oriented x3 and no apparent distress General Appearance: cooperative, comfortable and well kempt HEENT normocephalic, head/scalp atraumatic and hearing grossly normal bilaterally Tympanic Membrane: other Other Details: Bilateral tympanostomy tubes in place. Eyes EOMs intact bilaterally Neck full ROM General: normal visual inspection Resp normal respiratory effort Effort and Inspection: able to speak in complete sentences Neuro oriented x3 and CN's II-XII intact bilaterally Psych mental status grossly normal, thought process normal, cooperative and affect normal Charges/Coding Wound Center CF Procedures HBO Supervision: [id number] Hyperbaric Oxygen; supervision Assessment/Plan Assessment/Plan (1) Type 2 diabetes mellitus with foot ulcer: CODE(S): E11.621 - Type 2 diabetes mellitus with foot ulcer; L97.509 - Non-pressure chronic ulcer of other part of unspecified foot with unspecified severity QUALIFIERS: Diabetes mellitus group home insulin use: with longitudinal float operator use Qualified Code(s): E11.621 - Type 2 diabetes mellitus with foot ulcer; L97.509 - Non-pressure chronic ulcer of other part of unspecified foot with unspecified severity; Z79.4 - nursing home (current) use of insulin (2) Non-pressure chronic 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: CODE(S): L97.512 - Non-pressure chronic ulcer of other part of right foot with fat layer exposed (3) Type 2 diabetes mellitus with diabetic polyneuropathy: CODE(S): E11.42 - Type 2 diabetes mellitus with diabetic polyneuropathy QUALIFIERS: Diabetes mellitus group home insulin use: with group home use Qualified Code(s): E11.42 - Type 2 diabetes mellitus with diabetic polyneuropathy; Z79.4 - laborer marine terminal (current) use of insulin (4) Charcot's joint of right foot: CODE(S): M14.671 - Charcot's joint, right ankle and foot PLAN: Plan The patient appears to be tolerating hyperbaric oxygen therapy well, which will be continued as per their medical treatment plan. This note was generated with [employer] software. It may contain incorrect words, spelling, and punctuation that were not noted in checking the note before signing.
[2024-06-29 10:50] LABS: Bedside Glucose 116 mg/dL (74-106)
[2024-06-29 10:57] VITALS: BP 118/75; BP 135/68; PULSE 71; PULSE 87; RESP 14; RESP 15; RESP 16; TEMP 35.9; TEMP 36.2
--- NOTE | 2024-06-29 13:02 | PCM.WC.PN ---
History of Present Illness Date of Service: 06/29/24 Chief Complaint: HBO History of Wound: Ms. Falk is a 58-year-old currently being seen at the wound center for right foot/ankle ulcer. Since her initial certification, has had 23 sessions of hyperbaric oxygen therapy which she has tolerated well and there has been corresponding significant improvement in ulcer. 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 Blood glucose readings have been largely stable. No chest pain, tightness, blurry vision or concerns reported. Progress of Wound: Progress: Today's session represents the 44th session. She has been approved for a total of 60 sessions. Tolerance: Hyperbaric oxygen therapy was administered as per the facility's protocol. 100% oxygen at 2 KELLY for 90 minutes without air breaks. She tolerated hyperbaric oxygen therapy without any complaints or complications. Upon emergence from the chamber, her vitals remained stable and she was discharged in stable condition. Pre and post blood glucose readings as documented. Subjective Subjective This is a 58-year-old female who continues to follow with the wound care center for right dorsal foot ulceration. She had previously undergone I&D on 02/10/2024 of the right foot. Continues healing and is changing dressing daily. Continues HBO dives following tube placement in ears and is doing well. Ulcer site continues improvement with HBO therapy. She feels ulceration continuing to get smaller and progress towards healing. Denies constitutional symptoms. Denies further complaints. Objective Data Objective Data Vital Signs: Vital Signs Temp Pulse Resp BP 97.1 F L 87 15 135/68 H 06/29/24 10:57 06/29/24 10:57 06/29/24 10:57 06/29/24 10:57 Lab / Micro Data Labs: Laboratory Results - last 24 hr 06/29/24 08:23: POC Glucose 146 H 06/29/24 10:33: POC Glucose 116 H Physical Exam Const alert, oriented x3 and no apparent distress General Appearance: cooperative HEENT normocephalic Eyes General Eye: normal appearance of both eyes Neck General: normal visual inspection Lymph Lymphatic: no lymphadenopathy noted and no lymphedema noted Resp normal respiratory effort Cardio regular rate and regular rhythm Extremity Extremity Narrative: Right lower extremity: Vascular: DP and PT pulses palpable with adequate capillary fill time to the digits. Normal temperature gradient. Hair growth is absent to the digits. Neurologic: Gross sensation intact. Absent protective sensation consistent with diabetic peripheral polyneuropathy Musculoskeletal: No pain to palpation about the ulcerative site secondary to diabetic peripheral polyneuropathy. There is a Charcot foot deformity noted of the right foot. No pain to palpation about the ulcerative site. Dermatologic: Incision site medial foot healed with cicatrix. No signs of infection. Incision site anterior leg with cicatrix proximally and distally. No signs of infection. There is a full thickness ulceration dorsally along the midfoot medial to the incision site with healthy granular tissue and some hypergranular tissue. Ulceration continues improvement with reduction in size and is progressing well. Ulceration site demonstrates no signs of infection. Debridement Note Debridement Note Wound debrided: Right foot Laterality: Right Wound Grade/Stage: Gonzalez stage III Type of Debridement: Excisional debridement Anesthesia Used: 5% Lidocaine Gel Depth: Down to and including healthy tissue and in the subcutaneous layer Percentage of wound debrided: 100 Instrument Used: 5mm curette, #15 blade and Forceps Tissue Removed: Fibrous, devitalized subcutaneous, biofilm, slough Severity: Fat Layer Exposed Amount of bleeding with debridement: Mild Bleeding Controlled with: Compression and gauze and Silver Nitrate Patient tolerated procedure: Patient tolerated procedure well Post-Debridement Measurements and Additional Note: Post-Debridement Measurements/Treatment - Nurse 1 - General Ulcer Assessment Start: 06/26/24 11:06 Freq: Status: Active Protocol: ALISSA.[email or web address] Activity Type Activity Date Activity User E-sign Co-sign Detail Recorded Client Recorded Date Recorded By Document 06/29/24 10:57 DL [id number] 06/29/24 11:03 DL 06/29/24 10:57 - Today's Visit Information Type of service Follow-up Visit (Physician/[employer] ADDED ASSESSOR ) Arrival Mode Ambulatory Transfer Assistance None Patient Identification Verified (Name & Yes ) Patient Requires Transmission-Based No Precautions Vital Signs Temperature (97.8 F-99.1 F) 96.6 F L Temperature Source Temporal Pulse Rate (60-100) 71 Pulse Location Monitor Respiratory Rate (12-18) 16 Respiratory rate source Observation Blood Pressure (90/60-120/80) 118/75 Blood Pressure Mean (mm Hg) 89 Source Monitor History Since Last Visit- (Skip if this is Patient's initial visit) Have you changed medications since your No last visit? Any new allergies or adverse reactions No Had a fall/change in ADL's that may No increase risk of falls Signs or symptoms of abuse and/or No neglect since last visit Have you been in the hospital since your No last visit? Has dressing in place as prescribed Yes Has compression in place as prescribed Yes Has offloadiing in place as prescribed Yes Experienced any changes in pain level or No management Pain Scale: 0-10 Numeric Is Patient Pain Free? Yes WC - Nurse 1 - General Ulcer Measurement Start: 06/26/24 11:06 Freq: Status: Active Protocol: Activity Type Activity Date Activity User E-sign Co-sign Detail Recorded Client Recorded Date Recorded By Document 06/29/24 10:57 DL [id number] 06/29/24 11:03 DL 06/29/24 10:57 Wound Center Nurse 1 #5 RDorsal/Anterior Ankle -Current Size (cm) - Length 2.5 -Current Size (cm) - Width 1.5 -Current Size (cm) - Depth 0.1 -Total Square Cm 3.75 -Photo Taken Yes -Exudate Amt Medium -Exudate Type Serosanguineous -Wound Margin Distinct, Outline Attached -Granulation Amt None Present (0 %) -Granulation Quality Hyper- granulation -Necrosis Amt Large (67-100%) -Necrotic Tissue Type Adherent Slough -Structure Exposed N/A -Texture (Marie-wound Skin Appearance) Scarring -Moisture (Marie-wound Skin Appearance) Dry/Scaly -Color (Marie-wound Skin Appearance) No Abnormality -Temperature (Marie-wound Skin No Abnormality Appearance) (Pt Warm) -Tenderness on Palpation (Marie-wound No Skin Appearance) -Ulcer Cleansing Soap and Water -Foul Odor after Cleansing No -Anesthetic Used 5% Lidocaine Gel Right Calf (cm) 36 Right Ankle (cm) 21.3 - Nurse 2 - General Ulcer CM Notes Start: 06/26/24 11:06 Freq: Status: Active Protocol: Activity Type Activity Date Activity User E-sign Co-sign Detail Recorded Client Recorded Date Recorded By Document 06/29/24 11:29 [facility] [id number] 06/29/24 11:44 [facility] 06/29/24 11:29 Wound Center Nurse 2 #5 RDorsal/Anterior Ankle -Time 11:29 -Correct Patient Yes -Correct Side, Site, Position Yes -Correct Procedure Yes -Procedure Performed Yes -Type of Procedure Debridement -Clinical Debridement Subcutaneous -Tissue Removed Subcutaneous -Post Debridement (cm) - Length 2 -Post Debridement (cm) - Width 1.6 -Post Debridement (cm) - Depth 0.1 -Total Square (Post) (cm) 3.2 -Area of Debridement (cm) - Length 2 -Area of Debridement (cm) - Width 1.6 -Total Square (Area) (cm) 3.2 -Tunneling No -Undermining/Tunneling No -Circular Undermining No -Wound/Ulcer Outcome Not Healed -Ulcer Cleansing Rinsed/ Irrigated with Saline -Foul Odor after Cleansing No -Bioengineered Tissue No -Bleeding Controlled with Pressure,Silver Nitrate -Treatment Response Procedure Tolerated Well -Debridement - Subq, 1st 20sq cm Yes Pain Scale: 0-10 Numeric Is Patient Pain Free? Yes WC - Nurse 3 - General Ulcer D/C NN Start: 06/26/24 11:06 Freq: Status: Active Protocol: Activity Type Activity Date Activity User E-sign Co-sign Detail Recorded Client Recorded Date Recorded By Document 06/29/24 11:52 CP [id number] 06/29/24 11:53 CP 06/29/24 11:52 Wound Care Center Nurse 3 #5 RDorsal/Anterior Ankle -Ulcer Cleansing Rinsed/ Irrigated with Saline -Primary Dressing Applied Aquacel Extra, Collagen Powder ($) -Primary Dressing Covered/Secured with Dry Gauze & Roll Gauze -Aquacel Extra 1 Right -Compression Wrap Sebastian Wrap Pain Scale: 0-10 Numeric Is Patient Pain Free? Yes Assessment/Plan Assessment/Plan (1) Non-pressure chronic ulcer of other part of right foot with fat layer exposed: CODE(S): L97.512 - Non-pressure chronic ulcer of other part of right foot with fat layer exposed (2) Charcot's joint of right foot: CODE(S): M14.671 - Charcot's joint, right ankle and foot (3) Type 2 diabetes mellitus with diabetic polyneuropathy: CODE(S): E11.42 - Type 2 diabetes mellitus with diabetic polyneuropathy QUALIFIERS: Diabetes mellitus termite control service representative insulin use: with shelter use Qualified Code(s): E11.42 - Type 2 diabetes mellitus with diabetic polyneuropathy; Z79.4 - continuous churn buttermaker (current) use of insulin (4) Type 2 diabetes mellitus with foot ulcer: CODE(S): E11.621 - Type 2 diabetes mellitus with foot ulcer; L97.509 - Non-pressure chronic ulcer of other part of unspecified foot with unspecified severity QUALIFIERS: Diabetes mellitus termite control service representative insulin use: with shelter use Qualified Code(s): E11.621 - Type 2 diabetes mellitus with foot ulcer; L97.509 - Non-pressure chronic ulcer of other part of unspecified foot with unspecified severity; Z79.4 - intermediate (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 DOS 02/10/2024, POD #140 She is roughly 4.5 months out of surgery. Cicatrix at incision sites medial foot and anterior leg with no signs of infection. Ulceration dorsal foot continues granulating in well versus her previous visit. She continues healing well at this time and continues HBO dives following tube placement. Ulceration predebridement measures 1.9 cm x 1.5 cm x 0.1 cm Ulceration did undergo debridement as noted on clinical panel above. Chemical (89162) cauterization was performed of the hypergranular tissue today. Postdebridement measurements 2.0 cm x 1.6 cm x 0.1 cm. Has completed all 10 applications of EpiFix #10. Collagen powder moistened with hydrogel applied to the ulcerative bed today. Aquacel Ag and DSD applied. She is to change dressing daily. Ulceration continues reduction in size. Overall healing well and progressing towards healing. She was approved for EpiFix, completed all 10 applications. Has previously completed oral antibiotic doxycycline 100 mg twice daily and Augmentin 875mg daily. Will be permitted to continue protective weightbearing to the right lower extremity in CAM boot. Previously discussed medical clearance for HBO and she has been cleared by Dr. Howard. She will continue HBO dives as this is essential to her healing. She has had previous lab work drawn while in hospital 03/08/2024 [facility]. Did have chest x-ray during her hospital stay in January 2024 along with echocardiogram. Did undergo EKG for evaluation prior to dive. HgbA1c during hospital admission was 11.3% on 02/15/2024. Sugars have been well controlled following approval of insulin on new insurance. I do expect her A1c to continue to decrease. PICC removed 03/31/24. Following with ID. The following work up and care recommendations were made: Dressing: Collagen powder moistened with hydrogel, Aquacel Ag, dry sterile dressing right foot. Change daily Wash: Soap and water Tissue growth optimization: Collagen powder and hydrogel Offload: Nonweightbearing to the right lower extremity Vascular: DP and PT pulses palpable with adequate capillary fill time. Vascular status not impacting healing at this time. Edema: Edema well-controlled. Will continue with Tubigrip stocking application Infection: No signs of infection. Currently on IV antibiotics via PICC line. Will continue daptomycin and Unasyn per ID Pain: No pain to the ulcerative site secondary to diabetic peripheral polyneuropathy Host factors: DM type II with peripheral polyneuropathy, uncontrolled. Charcot foot right foot At this time prognosis is good and she continues healing well. Will continue HBO therapy as this is aiding in wound healing. I answered all the patient's questions. To return to the wound healing center in 1 week or call sooner if the patient has any questions or concerns.
--- NOTE | 2024-06-30 12:44 | WC ---
PHOTO RIGHT DORSAL FOOT 06/28/24
[2024-07-03 08:37] LABS: Bedside Glucose 216 mg/dL (74-106)
[2024-07-03 08:59] VITALS: BP 119/67; BP 121/60; PULSE 61; PULSE 95; RESP 16; TEMP 36.2; TEMP 36.3
--- NOTE | 2024-07-03 11:02 | PCM.HBO.PN ---
History of Present Illness Date of Service: 07/03/24 Chief Complaint: HBO History of Wound: Ms. Falk is a 58-year-old currently being seen at the wound center for right foot/ankle ulcer. Since her initial certification, has had 23 sessions of hyperbaric oxygen therapy which she has tolerated well and there has been corresponding significant improvement in ulcer. 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 Blood glucose readings have been largely stable. No chest pain, tightness, blurry vision or concerns reported. Progress of Wound: Progress: Today's session represents the 45th session. She has been approved for a total of 60 sessions. Tolerance: Hyperbaric oxygen therapy was administered as per the facility's protocol. 100% oxygen at 2 KELLY for 90 minutes without air breaks. She tolerated hyperbaric oxygen therapy without any complaints or complications. Upon emergence from the chamber, her vitals remained stable and she was discharged in stable condition. Pre and post blood glucose readings as documented. Objective Data Objective Data Vital Signs: Vital Signs Temp Pulse Resp BP 97.2 F L 95 16 119/67 07/03/24 08:59 07/03/24 08:59 07/03/24 08:59 07/03/24 08:59 Lab / Micro Data Labs: Laboratory Results - last 24 hr 07/03/24 08:19: POC Glucose 216 H Exam Physical Exam Const alert, oriented x3 and no apparent distress General Appearance: cooperative HEENT normocephalic HEENT Narrative: Bilateral Tympanostomy tubes in place. Eyes General Eye: normal appearance of both eyes Resp normal respiratory effort, no use of accessory muscles and clear to auscultation bilaterally Effort and Inspection: able to speak in complete sentences Cardio regular rate and regular rhythm Palpation: normal PMI Psych mental status grossly normal, thought process normal, cooperative, affect normal and speech normal Charges/Coding Wound Center CF Procedures HBO Supervision: [id number] Hyperbaric Oxygen; supervision Assessment/Plan Assessment/Plan (1) Type 2 diabetes mellitus with foot ulcer: CODE(S): E11.621 - Type 2 diabetes mellitus with foot ulcer; L97.509 - Non-pressure chronic ulcer of other part of unspecified foot with unspecified severity QUALIFIERS: Diabetes mellitus intermediate insulin use: with intermediate use Qualified Code(s): E11.621 - Type 2 diabetes mellitus with foot ulcer; L97.509 - Non-pressure chronic ulcer of other part of unspecified foot with unspecified severity; Z79.4 - dedicated intermodal truck driver (current) use of insulin (2) Non-pressure chronic ulcer of other part of right foot with fat layer exposed: CODE(S): L97.512 - Non-pressure chronic ulcer of other part of right foot with fat layer exposed (3) Type 2 diabetes mellitus with diabetic polyneuropathy: CODE(S): E11.42 - Type 2 diabetes mellitus with diabetic polyneuropathy QUALIFIERS: Diabetes mellitus intermediate insulin use: with moth exterminator use Qualified Code(s): E11.42 - Type 2 diabetes mellitus with diabetic polyneuropathy; Z79.4 - senior care (current) use of insulin (4) Charcot's joint of right foot: CODE(S): M14.671 - Charcot's joint, right ankle and foot PLAN: Plan The patient appears to be tolerating hyperbaric oxygen therapy well, which will be continued as per their medical treatment plan.
[2024-07-03 11:05] LABS: Bedside Glucose 107 mg/dL (74-106)
[2024-07-04 08:37] LABS: Bedside Glucose 189 mg/dL (74-106)
[2024-07-04 10:21] VITALS: BP 112/64; BP 113/66; PULSE 80; PULSE 81; RESP 15; RESP 17; TEMP 36.1; TEMP 36.2
--- NOTE | 2024-07-04 10:47 | HBO.PN.PCM_ITS ---
History of Present Illness Date of Service: 07/04/24 Chief Complaint: HBO History of Wound: Ms. Falk is a 58-year-old currently being seen at the wound center for right foot/ankle ulcer. Since her initial certification, has had 23 sessions of hyperbaric oxygen therapy which she has tolerated well and there has been corresponding significant improvement in ulcer. 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 Blood glucose readings have been largely stable. No chest pain, tightness, blurry vision or concerns reported. Progress of Wound: Progress: Today's session represents the 46th session. She has been approved for a total of 60 sessions. Tolerance: Hyperbaric oxygen therapy was administered as per the facility's protocol. 100% oxygen at 2 KELLY for 90 minutes without air breaks. She tolerated hyperbaric oxygen therapy without any complaints or complications. Upon emergence from the chamber, her vitals remained stable and she was discharged in stable condition. Pre and post blood glucose readings as documented. Objective Data Objective Data Vital Signs: Vital Signs Temp Pulse Resp BP 97.2 F L 95 16 119/67 07/03/24 08:59 07/03/24 08:59 07/03/24 08:59 07/03/24 08:59 Lab / Micro Data Labs: Laboratory Results - last 24 hr 07/03/24 10:37: POC Glucose 107 H 07/04/24 08:19: POC Glucose 189 H Exam Physical Exam Const alert, oriented x3 and no apparent distress General Appearance: cooperative HEENT normocephalic HEENT Narrative: Bilateral Tympanostomy tubes in place. Eyes General Eye: normal appearance of both eyes Resp normal respiratory effort, no use of accessory muscles and clear to auscultation bilaterally Effort and Inspection: able to speak in complete sentences Cardio regular rate and regular rhythm Palpation: normal PMI Psych mental status grossly normal, thought process normal, cooperative, affect normal and speech normal Charges/Coding Wound Center CF Procedures HBO Supervision: [id number] Hyperbaric Oxygen; supervision Assessment/Plan Assessment/Plan (1) Type 2 diabetes mellitus with foot ulcer: CODE(S): E11.621 - Type 2 diabetes mellitus with foot ulcer; L97.509 - Non-pressure chronic ulcer of other part of unspecified foot with unspecified severity QUALIFIERS: Diabetes mellitus [facility] insulin use: with exterminator termite use Qualified Code(s): E11.621 - Type 2 diabetes mellitus with foot ulcer; L97.509 - Non-pressure chronic ulcer of other part of unspecified foot with unspecified severity; Z79.4 - termite technician (current) use of insulin (2) Non-pressure chronic ulcer of other part of right foot with fat layer exposed: CODE(S): L97.512 - Non-pressure chronic ulcer of other part of right foot with fat layer exposed (3) Type 2 diabetes mellitus with diabetic polyneuropathy: CODE(S): E11.42 - Type 2 diabetes mellitus with diabetic polyneuropathy QUALIFIERS: Diabetes mellitus [facility] insulin use: with exterminator termite use Qualified Code(s): E11.42 - Type 2 diabetes mellitus with diabetic polyneuropathy; Z79.4 - termite technician (current) use of insulin (4) Charcot's joint of right foot: CODE(S): M14.671 - Charcot's joint, right ankle and foot PLAN: Plan The patient appears to be tolerating hyperbaric oxygen therapy well, which will be continued as per their medical treatment plan.
[2024-07-04 10:53] LABS: Bedside Glucose 104 mg/dL (74-106)
[2024-07-05 08:40] LABS: Bedside Glucose 171 mg/dL (74-106)
--- NOTE | 2024-07-05 08:50 | PCM.HBO.PN ---
History of Present Illness Date of Service: 07/05/24 Chief Complaint: HBO History of Wound: Ms. Falk is a 58-year-old currently being seen at the wound center for right foot/ankle ulcer. Since her initial certification, has had 23 sessions of hyperbaric oxygen therapy which she has tolerated well and there has been corresponding significant improvement in ulcer. 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 Blood glucose readings have been largely stable. No chest pain, tightness, blurry vision or concerns reported. Progress of Wound: Progress: Today's session represents the 47th session. She has been approved for a total of 60 sessions. Tolerance: Hyperbaric oxygen therapy was administered as per the facility's protocol. 100% oxygen at 2 KELLY for 90 minutes without air breaks. She tolerated hyperbaric oxygen therapy without any complaints or complications. Upon emergence from the chamber, her vitals remained stable and she was discharged in stable condition. Pre and post blood glucose readings as documented. Objective Data Objective Data Vital Signs: Vital Signs Temp Pulse Resp BP 97.2 F L 80 17 113/66 07/04/24 10:21 07/04/24 10:21 07/04/24 10:21 07/04/24 10:21 Lab / Micro Data Labs: Laboratory Results - last 24 hr 07/04/24 10:35: POC Glucose 104 07/05/24 08:23: POC Glucose 171 H Exam Physical Exam Const alert, oriented x3 and no apparent distress General Appearance: cooperative HEENT normocephalic HEENT Narrative: Bilateral Tympanostomy tubes in place. Eyes General Eye: normal appearance of both eyes Resp normal respiratory effort, no use of accessory muscles and clear to auscultation bilaterally Effort and Inspection: able to speak in complete sentences Cardio regular rate and regular rhythm Palpation: normal PMI Psych mental status grossly normal, thought process normal, cooperative, affect normal and speech normal Charges/Coding Wound Center CF Procedures HBO Supervision: [id number] Hyperbaric Oxygen; supervision Assessment/Plan Assessment/Plan (1) Type 2 diabetes mellitus with foot ulcer: CODE(S): E11.621 - Type 2 diabetes mellitus with foot ulcer; L97.509 - Non-pressure chronic ulcer of other part of unspecified foot with unspecified severity QUALIFIERS: Diabetes mellitus [facility] insulin use: with terminal computer operator use Qualified Code(s): E11.621 - Type 2 diabetes mellitus with foot ulcer; L97.509 - Non-pressure chronic ulcer of other part of unspecified foot with unspecified severity; Z79.4 - terminal worker (current) use of insulin (2) Non-pressure chronic ulcer of other part of right foot with fat layer exposed: CODE(S): L97.512 - Non-pressure chronic ulcer of other part of right foot with fat layer exposed (3) Type 2 diabetes mellitus with diabetic polyneuropathy: CODE(S): E11.42 - Type 2 diabetes mellitus with diabetic polyneuropathy QUALIFIERS: Diabetes mellitus terminal computer operator insulin use: with terminal computer operator use Qualified Code(s): E11.42 - Type 2 diabetes mellitus with diabetic polyneuropathy; Z79.4 - penitentiary (current) use of insulin (4) Charcot's joint of right foot: CODE(S): M14.671 - Charcot's joint, right ankle and foot PLAN: Plan The patient appears to be tolerating hyperbaric oxygen therapy well, which will be continued as per their medical treatment plan.
[2024-07-05 09:10] VITALS: BP 103/68; BP 120/76; PULSE 72; PULSE 78; RESP 16; TEMP 36.1; TEMP 36.5
[2024-07-05 10:50] LABS: Bedside Glucose 86 mg/dL (74-106)
[2024-07-06 11:33] VITALS: BP 147/60; PULSE 84; RESP 18; TEMP 36.8
--- NOTE | 2024-07-06 16:03 | PCM.WC.PN ---
History of Present Illness Date of Service: 07/06/24 Chief Complaint: HBO History of Wound: Ms. Falk is a 58-year-old currently being seen at the wound center for right foot/ankle ulcer. Since her initial certification, has had 23 sessions of hyperbaric oxygen therapy which she has tolerated well and there has been corresponding significant improvement in ulcer. 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 Blood glucose readings have been largely stable. No chest pain, tightness, blurry vision or concerns reported. Progress of Wound: Progress: Today's session represents the 47th session. She has been approved for a total of 60 sessions. Tolerance: Hyperbaric oxygen therapy was administered as per the facility's protocol. 100% oxygen at 2 KELLY for 90 minutes without air breaks. She tolerated hyperbaric oxygen therapy without any complaints or complications. Upon emergence from the chamber, her vitals remained stable and she was discharged in stable condition. Pre and post blood glucose readings as documented. Subjective Subjective This is a 58-year-old female who continues to follow with the wound care center for right dorsal foot ulceration. She had previously undergone I&D on 02/10/2024 of the right foot. Continues healing and is changing dressing daily. Continues HBO dives following tube placement in ears and is doing well. Ulcer site continues improvement with HBO therapy. She feels ulceration continuing to get smaller and progress towards healing. She reports she is pleased it is continuing to heal. Denies constitutional symptoms. Denies further complaints. Objective Data Objective Data Vital Signs: Vital Signs Temp Pulse Resp BP 98.3 F 84 18 147/60 H 07/06/24 11:33 07/06/24 11:33 07/06/24 11:33 07/06/24 11:33 Physical Exam Const alert, oriented x3 and no apparent distress General Appearance: cooperative HEENT normocephalic Eyes General Eye: normal appearance of both eyes Neck General: normal visual inspection Lymph Lymphatic: no lymphadenopathy noted and no lymphedema noted Resp normal respiratory effort Cardio regular rate and regular rhythm Extremity Extremity Narrative: Right lower extremity: Vascular: DP and PT pulses palpable with adequate capillary fill time to the digits. Normal temperature gradient. Hair growth is absent to the digits. Neurologic: Gross sensation intact. Absent protective sensation consistent with diabetic peripheral polyneuropathy Musculoskeletal: No pain to palpation about the ulcerative site secondary to diabetic peripheral polyneuropathy. There is a Charcot foot deformity noted of the right foot. No pain to palpation about the ulcerative site. Dermatologic: Incision site medial foot healed with cicatrix. No signs of infection. Incision site anterior leg with cicatrix proximally and distally. No signs of infection. There is a full thickness ulceration dorsally along the midfoot medial to the incision site with healthy granular tissue and some hypergranular tissue. Ulceration continues improvement with reduction in size and is progressing well. Ulceration site demonstrates no signs of infection. Debridement Note Debridement Note Wound debrided: Right foot Laterality: Right Wound Grade/Stage: Gonzalez stage III Type of Debridement: Excisional debridement Anesthesia Used: 5% Lidocaine Gel Depth: Down to and including healthy tissue and in the subcutaneous layer Percentage of wound debrided: 100 Instrument Used: 7mm curette, #15 blade and Forceps Tissue Removed: fibrous, devitalized subcutaneous, biofilm, slough, proud flesh tissue Severity: Fat Layer Exposed Amount of bleeding with debridement: Mild Bleeding Controlled with: Compression and gauze and Silver Nitrate Patient tolerated procedure: Patient tolerated procedure well Post-Debridement Measurements and Additional Note: Post-Debridement Measurements/Treatment - Nurse 1 - General Ulcer Assessment Start: 06/26/24 11:06 Freq: Status: Active Protocol: RUKHSANA Activity Type Activity Date Activity User E-sign Co-sign Detail Recorded Client Recorded Date Recorded By Document 06/29/24 10:57 DL [id number] 06/29/24 11:03 DL Document 07/06/24 11:33 RB [id number] 07/06/24 11:38 RB 06/29/24 07/06/24 10:57 11:33 - Today's Visit Information Type of service Follow-up Visit Follow-up Visit (Physician/HEAVY EQUIPMENT OPERATOR (Physician/HEAVY EQUIPMENT OPERATOR ) ) Arrival Mode Ambulatory Ambulatory Transfer Assistance None None Patient Identification Verified (Name & Yes Yes ) Patient Requires Transmission-Based No No Precautions Vital Signs Temperature (97.8 F-99.1 F) 96.6 F L 98.3 F Temperature Source Temporal Temporal Pulse Rate (60-100) 71 84 Pulse Location Monitor Monitor Respiratory Rate (12-18) 16 18 Respiratory rate source Observation Observation Blood Pressure (90/60-120/80) 118/75 147/60 H Blood Pressure Mean (mm Hg) 89 89 Source Monitor Monitor Position Semi-Fowlers Blood Pressure Location Left Arm History Since Last Visit- (Skip if this is Patient's initial visit) Have you changed medications since your No No last visit? Any new allergies or adverse reactions No No Had a fall/change in ADL's that may No No increase risk of falls Signs or symptoms of abuse and/or No No neglect since last visit Have you been in the hospital since your No No last visit? Has dressing in place as prescribed Yes Yes Has compression in place as prescribed Yes Yes Has offloadiing in place as prescribed Yes Yes Experienced any changes in pain level or No No management Left Footwear Regular Shoe Right Footwear Removable Cast Walker/Walking Boot Pain Scale: 0-10 Numeric Is Patient Pain Free? Yes No lower back -Description Aching -Intensity 8 -Duration (hours) Acute -Pain Behavior Guarding -Pain Aggravating Factors Exercise/ Activity -Alleviating Factors/Interventions Medication -Effectiveness of Alleviating Factor/ Moderately Intervention effective WC - Nurse 1 - General Ulcer Measurement Start: 06/26/24 11:06 Freq: Status: Active Protocol: Activity Type Activity Date Activity User E-sign Co-sign Detail Recorded Client Recorded Date Recorded By Document 06/29/24 10:57 DL [id number] 06/29/24 11:03 DL Document 07/06/24 11:33 RB [id number] 07/06/24 11:38 RB 06/29/24 07/06/24 10:57 11:33 Wound Center Nurse 1 #5 RDorsal/Anterior Ankle -Combined with other wound No -Current Size (cm) - Length 2.5 2.5 -Current Size (cm) - Width 1.5 1.5 -Current Size (cm) - Depth 0.1 0.1 -Total Square Cm 3.75 3.75 -Photo Taken Yes Yes -Tunneling No -Undermining/Tunneling No -Circular Undermining No -Exudate Amt Medium Large -Exudate Type Serosanguineous Serosanguineous -Wound Margin Distinct, Distinct, Outline Outline Attached Attached -Granulation Amt None Present (0 Large (67-100%) %) -Granulation Quality Hyper- Hyper- granulation granulation, [place],Red -Slough/Fibrin Yes -Necrosis Amt Large (67-100%) Medium (34-66%) -Necrotic Tissue Type Adherent Slough Adherent Slough -Structure Exposed N/A N/A -Texture (Marie-wound Skin Appearance) Scarring Assessed, Scarring -Moisture (Marie-wound Skin Appearance) Dry/Scaly Maceration -Color (Marie-wound Skin Appearance) No Abnormality Assessed -Temperature (Marie-wound Skin No Abnormality No Abnormality Appearance) (Pt Warm) (Pt Warm) -Tenderness on Palpation (Marie-wound No No Skin Appearance) -Ulcer Cleansing Soap and Water Wound Cleanser -Foul Odor after Cleansing No No -Anesthetic Used 5% Lidocaine 5% Lidocaine Gel Gel Right Calf (cm) 36 Right Ankle (cm) 21.3 WC - Nurse 2 - General Ulcer CM Notes Start: 06/26/24 11:06 Freq: Status: Active Protocol: Activity Type Activity Date Activity User E-sign Co-sign Detail Recorded Client Recorded Date Recorded By Document 06/29/24 11:29 [facility] [id number] 06/29/24 11:44 [facility] Document 07/06/24 12:29 [place] [id number] 07/06/24 12:40 [facility] 06/29/24 07/06/24 11:29 12:29 Wound Center Nurse 2 #5 RDorsal/Anterior Ankle -Time 11:29 12:29 -Correct Patient Yes Yes -Correct Side, Site, Position Yes Yes -Correct Procedure Yes Yes -Procedure Performed Yes Yes -Type of Procedure Debridement Debridement -Clinical Debridement Subcutaneous Subcutaneous -Tissue Removed Subcutaneous Subcutaneous -Post Debridement (cm) - Length 2 2.1 -Post Debridement (cm) - Width 1.6 1.6 -Post Debridement (cm) - Depth 0.1 0.1 -Total Square (Post) (cm) 3.2 3.36 -Area of Debridement (cm) - Length 2 2.1 -Area of Debridement (cm) - Width 1.6 1.6 -Total Square (Area) (cm) 3.2 3.36 -Tunneling No No -Undermining/Tunneling No No -Circular Undermining No No -Wound/Ulcer Outcome Not Healed Not Healed -Ulcer Cleansing Rinsed/ Rinsed/ Irrigated with Irrigated with Saline Saline -Foul Odor after Cleansing No No -Bioengineered Tissue No No -Bleeding Controlled with Pressure,Silver Pressure,Silver Nitrate Nitrate -Treatment Response Procedure Procedure Tolerated Well Tolerated Well -Debridement - Subq, 1st 20sq cm Yes Yes Pain Scale: 0-10 Numeric Is Patient Pain Free? Yes Yes WC - Nurse 3 - General Ulcer D/C NN Start: 06/26/24 11:06 Freq: Status: Active Protocol: Activity Type Activity Date Activity User E-sign Co-sign Detail Recorded Client Recorded Date Recorded By Document 06/29/24 11:52 CP [id number] 06/29/24 11:53 CP Document 07/06/24 12:53 RB [id number] 07/06/24 12:54 RB 06/29/24 07/06/24 11:52 12:53 Wound Care Center Nurse 3 #5 RDorsal/Anterior Ankle -Ulcer Cleansing Rinsed/ Rinsed/ Irrigated with Irrigated with Saline Saline -Primary Dressing Applied Aquacel Extra, Aquacel Extra,C Collagen Powder Hydrogel ($), ($) Collagen Powder ($) -Other Dressing ABD pad -Primary Dressing Covered/Secured with Dry Gauze & Dry Gauze & Roll Gauze Roll Gauze -Aquacel Extra 1 1 -Wound Comment(s) sebastian Right -Compression Wrap Sebastian Wrap -Other sebastian Treatment Response Procedure Tolerated Well Pain Scale: 0-10 Numeric Is Patient Pain Free? Yes 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 (2) Charcot's joint of right foot: CODE(S): M14.671 - Charcot's joint, right ankle and foot (3) Type 2 diabetes mellitus with diabetic polyneuropathy: CODE(S): E11.42 - Type 2 diabetes mellitus with diabetic polyneuropathy QUALIFIERS: Diabetes mellitus custodial insulin use: with terminal press operator use Qualified Code(s): E11.42 - Type 2 diabetes mellitus with diabetic polyneuropathy; Z79.4 - assisted (current) use of insulin (4) Type 2 diabetes mellitus with foot ulcer: CODE(S): E11.621 - Type 2 diabetes mellitus with foot ulcer; L97.509 - Non-pressure chronic ulcer of other part of unspecified foot with unspecified severity QUALIFIERS: Diabetes mellitus custodial insulin use: with custodial use Qualified Code(s): E11.621 - Type 2 diabetes mellitus with foot ulcer; L97.509 - Non-pressure chronic ulcer of other part of unspecified foot with unspecified severity; Z79.4 - termite treater helper (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 DOS 02/10/2024, POD #147 She is roughly 4.5 months out of surgery. Cicatrix at incision sites medial foot and anterior leg with no signs of infection. Ulceration dorsal foot continues granulating in well versus her previous visit. She continues healing well at this time and continues HBO dives following tube placement. Ulceration predebridement measures 2.0 cm x 1.5 cm x 0.1 cm Ulceration did undergo debridement as noted on clinical panel above. Chemical (46907) cauterization was performed of the hypergranular tissue today. Postdebridement measurements 2.1 cm x 1.6 cm x 0.1 cm. Has completed all 10 applications of EpiFix #10. Collagen powder moistened with hydrogel applied to the ulcerative bed today. Aquacel Ag and DSD applied. She is to change dressing daily. Ulceration demonstrates little to no reduction in size vs previous visit. Overall healing well and progressing towards healing. She was approved for EpiFix, completed all 10 applications. Has previously completed oral antibiotic doxycycline 100 mg twice daily and Augmentin 875mg daily. Will be permitted to continue protective weightbearing to the right lower extremity in CAM boot. Previously discussed medical clearance for HBO and she has been cleared by Dr. Howard. She will continue HBO dives as this is essential to her healing. She has had previous lab work drawn while in hospital 03/08/2024 [facility]. Did have chest x-ray during her hospital stay in January 2024 along with echocardiogram. Did undergo EKG for evaluation prior to dive. HgbA1c during hospital admission was 11.3% on 02/15/2024. Sugars have been well controlled following approval of insulin on new insurance. I do expect her A1c to continue to decrease. PICC removed 03/31/24. Following with ID. The following work up and care recommendations were made: Dressing: Collagen powder moistened with hydrogel, Aquacel Ag, dry sterile dressing right foot. Change daily Wash: Soap and water Tissue growth optimization: Collagen powder and hydrogel Offload: Nonweightbearing to the right lower extremity Vascular: DP and PT pulses palpable with adequate capillary fill time. Vascular status not impacting healing at this time. Edema: Edema well-controlled. Will continue with Tubigrip stocking application Infection: No signs of infection. Currently on IV antibiotics via PICC line. Will continue daptomycin and Unasyn per ID Pain: No pain to the ulcerative site secondary to diabetic peripheral polyneuropathy Host factors: DM type II with peripheral polyneuropathy, uncontrolled. Charcot foot right foot At this time prognosis is good and she continues healing well. Will continue HBO therapy as this is aiding in wound healing. I answered all the patient's questions. To return to the wound healing center in 1 week or call sooner if the patient has any questions or concerns.
[2024-07-07 08:43] LABS: Bedside Glucose 124 mg/dL (74-106)
[2024-07-07 09:02] LABS: Bedside Glucose 166 mg/dL (74-106)
--- NOTE | 2024-07-07 09:36 | WC ---
PHOTO 07/06/24 DORSAL ANKLE
[2024-07-07 09:51] VITALS: BP 117/63; BP 117/73; PULSE 77; PULSE 84; RESP 14; RESP 15; TEMP 35.6; TEMP 35.9
[2024-07-07 11:07] LABS: Bedside Glucose 123 mg/dL (74-106)
--- NOTE | 2024-07-07 13:52 | PCM.HBO.PN ---
History of Present Illness Date of Service: 07/07/24 Chief Complaint: HBO History of Wound: Ms. Falk is a 58-year-old currently being seen at the wound center for right foot/ankle ulcer. Since her initial certification, has had 23 sessions of hyperbaric oxygen therapy which she has tolerated well and there has been corresponding significant improvement in ulcer. 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 Blood glucose readings have been largely stable. No chest pain, tightness, blurry vision or concerns reported. Progress of Wound: Progress: Today's session represents the 48h session. She has been approved for a total of 60 sessions. Tolerance: Hyperbaric oxygen therapy was administered as per the facility's protocol. 100% oxygen at 2 KELLY for 90 minutes without air breaks. She tolerated hyperbaric oxygen therapy without any complaints or complications. Upon emergence from the chamber, her vitals remained stable and she was discharged in stable condition. Pre and post blood glucose readings as documented. Objective Data Objective Data Vital Signs: Vital Signs Temp Pulse Resp BP 96.0 F L 84 15 117/63 07/07/24 09:51 07/07/24 09:51 07/07/24 09:51 07/07/24 09:51 Lab / Micro Data Labs: Laboratory Results - last 24 hr 07/07/24 08:24: POC Glucose 124 H 07/07/24 08:44: POC Glucose 166 H 07/07/24 10:49: POC Glucose 123 H Exam Physical Exam Const alert, oriented x3 and no apparent distress General Appearance: cooperative HEENT normocephalic HEENT Narrative: Bilateral Tympanostomy tubes in place. Eyes General Eye: normal appearance of both eyes Resp normal respiratory effort, no use of accessory muscles and clear to auscultation bilaterally Effort and Inspection: able to speak in complete sentences Cardio regular rate and regular rhythm Palpation: normal PMI Psych mental status grossly normal, thought process normal, cooperative, affect normal and speech normal Nursing Assessment and Debridement Post-Debridement Measurements and Additional Note: Post-Debridement Measurements/Treatment WC - Nurse 1 - General Ulcer Assessment Start: 06/26/24 11:06 Freq: Status: Active Protocol: RUKHSANA Activity Type Activity Date Activity User E-sign Co-sign Detail Recorded Client Recorded Date Recorded By Document 07/06/24 11:33 RB [id number] 07/06/24 11:38 RB 07/06/24 11:33 WC - Today's Visit Information Type of service Follow-up Visit (Physician/AIR CREW SUPERVISOR ) Arrival Mode Ambulatory Transfer Assistance None Patient Identification Verified (Name & Yes ) Patient Requires Transmission-Based No Precautions Vital Signs Temperature (97.8 F-99.1 F) 98.3 F Temperature Source Temporal Pulse Rate (60-100) 84 Pulse Location Monitor Respiratory Rate (12-18) 18 Respiratory rate source Observation Blood Pressure (90/60-120/80) 147/60 H Blood Pressure Mean (mm Hg) 89 Source Monitor Position Semi-Fowlers Blood Pressure Location Left Arm History Since Last Visit- (Skip if this is Patient's initial visit) Have you changed medications since your No last visit? Any new allergies or adverse reactions No Had a fall/change in ADL's that may No increase risk of falls Signs or symptoms of abuse and/or No neglect since last visit Have you been in the hospital since your No last visit? Has dressing in place as prescribed Yes Has compression in place as prescribed Yes Has offloadiing in place as prescribed Yes Experienced any changes in pain level or No management Left Footwear Regular Shoe Right Footwear Removable Cast Walker/Walking Boot Pain Scale: 0-10 Numeric Is Patient Pain Free? No lower back -Description Aching -Intensity 8 -Duration (hours) Acute -Pain Behavior Guarding -Pain Aggravating Factors Exercise/ Activity -Alleviating Factors/Interventions Medication -Effectiveness of Alleviating Factor/ Moderately Intervention effective - Nurse 1 - General Ulcer Measurement Start: 06/26/24 11:06 Freq: Status: Active Protocol: Activity Type Activity Date Activity User E-sign Co-sign Detail Recorded Client Recorded Date Recorded By Document 07/06/24 11:33 DALIA [id number] 07/06/24 11:38 RB 07/06/24 11:33 Wound Center Nurse 1 #5 RDorsal/Anterior Ankle -Combined with other wound No -Current Size (cm) - Length 2.5 -Current Size (cm) - Width 1.5 -Current Size (cm) - Depth 0.1 -Total Square Cm 3.75 -Photo Taken Yes -Tunneling No -Undermining/Tunneling No -Circular Undermining No -Exudate Amt Large -Exudate Type Serosanguineous -Wound Margin Distinct, Outline Attached -Granulation Amt Large (67-100%) -Granulation Quality Hyper- granulation, [place],Red -Slough/Fibrin Yes -Necrosis Amt Medium (34-66%) -Necrotic Tissue Type Adherent Slough -Structure Exposed N/A -Texture (Marie-wound Skin Appearance) Assessed, Scarring -Moisture (Marie-wound Skin Appearance) Maceration -Color (Marie-wound Skin Appearance) Assessed -Temperature (Marie-wound Skin No Abnormality Appearance) (Pt Warm) -Tenderness on Palpation (Marie-wound No Skin Appearance) -Ulcer Cleansing Wound Cleanser -Foul Odor after Cleansing No -Anesthetic Used 5% Lidocaine Gel WC - Nurse 2 - General Ulcer CM Notes Start: 06/26/24 11:06 Freq: Status: Active Protocol: Activity Type Activity Date Activity User E-sign Co-sign Detail Recorded Client Recorded Date Recorded By Document 07/06/24 12:29 [facility] [id number] 07/06/24 12:40 [facility] 07/06/24 12:29 Wound Center Nurse 2 -Time 12:29 -Correct Patient Yes -Correct Side, Site, Position Yes -Correct Procedure Yes -Procedure Performed Yes -Type of Procedure Debridement -Clinical Debridement Subcutaneous -Tissue Removed Subcutaneous -Post Debridement (cm) - Length 2.1 -Post Debridement (cm) - Width 1.6 -Post Debridement (cm) - Depth 0.1 -Total Square (Post) (cm) 3.36 -Area of Debridement (cm) - Length 2.1 -Area of Debridement (cm) - Width 1.6 -Total Square (Area) (cm) 3.36 -Tunneling No -Undermining/Tunneling No -Circular Undermining No -Wound/Ulcer Outcome Not Healed -Ulcer Cleansing Rinsed/ Irrigated with Saline -Foul Odor after Cleansing No -Bioengineered Tissue No -Bleeding Controlled with Pressure,Silver Nitrate -Treatment Response Procedure Tolerated Well -Debridement - Subq, 1st 20sq cm Yes Pain Scale: 0-10 Numeric Is Patient Pain Free? Yes - Nurse 3 - General Ulcer D/C NN Start: 06/26/24 11:06 Freq: Status: Active Protocol: Activity Type Activity Date Activity User E-sign Co-sign Detail Recorded Client Recorded Date Recorded By Document 07/06/24 12:53 RB [id number] 07/06/24 12:54 RB 07/06/24 12:53 Wound Care Center Nurse 3 #5 RDorsal/Anterior Ankle -Ulcer Cleansing Rinsed/ Irrigated with Saline -Primary Dressing Applied Aquacel Extra,C Hydrogel ($), Collagen Powder ($) -Other Dressing ABD pad -Primary Dressing Covered/Secured with Dry Gauze & Roll Gauze -Aquacel Extra 1 -Wound Comment(s) verito Right -Other verito Treatment Response Procedure Tolerated Well Pain Scale: 0-10 Numeric Is Patient Pain Free? Yes WC - Visit Discharge Discharge Condition Stable Ambulatory Status Ambulatory Transportation Private Auto Medication Reconcilliation completed & No provided to patient/care provider Clinical Summary of Care Provided Yes Assessment/Plan Assessment/Plan (1) Type 2 diabetes mellitus with foot ulcer: CODE(S): E11.621 - Type 2 diabetes mellitus with foot ulcer; L97.509 - Non-pressure chronic ulcer of other part of unspecified foot with unspecified severity QUALIFIERS: Diabetes mellitus termite exterminator helper insulin use: with retirement use Qualified Code(s): E11.621 - Type 2 diabetes mellitus with foot ulcer; L97.509 - Non-pressure chronic ulcer of other part of unspecified foot with unspecified severity; Z79.4 - detention (current) use of insulin (2) Non-pressure chronic ulcer of other part of right foot with fat layer exposed: CODE(S): L97.512 - Non-pressure chronic ulcer of other part of right foot with fat layer exposed (3) Type 2 diabetes mellitus with diabetic polyneuropathy: CODE(S): E11.42 - Type 2 diabetes mellitus with diabetic polyneuropathy QUALIFIERS: Diabetes mellitus termite exterminator helper insulin use: with retirement use Qualified Code(s): E11.42 - Type 2 diabetes mellitus with diabetic polyneuropathy; 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 (4) Charcot's joint of right foot: CODE(S): M14.671 - Charcot's joint, right ankle and foot PLAN: Plan The patient appears to be tolerating hyperbaric oxygen therapy well, which will be continued as per their medical treatment plan.
[2024-07-11 08:44] LABS: Bedside Glucose 222 mg/dL (74-106)
--- NOTE | 2024-07-11 08:46 | PCM.HBO.PN ---
History of Present Illness Date of Service: 07/11/24 Chief Complaint: HBO History of Wound: Ms. Falk is a 58-year-old currently being seen at the wound center for right foot/ankle ulcer. Since her initial certification, has had 23 sessions of hyperbaric oxygen therapy which she has tolerated well and there has been corresponding significant improvement in ulcer. 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 Blood glucose readings have been largely stable. No chest pain, tightness, blurry vision or concerns reported. Progress of Wound: Progress: Today's session represents the 49th session. She has been approved for a total of 60 sessions. Tolerance: Hyperbaric oxygen therapy was administered as per the facility's protocol. 100% oxygen at 2 KELLY for 90 minutes without air breaks. She tolerated hyperbaric oxygen therapy without any complaints or complications. Upon emergence from the chamber, her vitals remained stable and she was discharged in stable condition. Pre and post blood glucose readings as documented. Objective Data Objective Data Vital Signs: Vital Signs Temp Pulse Resp BP 96.0 F L 84 15 117/63 07/07/24 09:51 07/07/24 09:51 07/07/24 09:51 07/07/24 09:51 Lab / Micro Data Labs: Laboratory Results - last 24 hr 07/11/24 08:26: POC Glucose 222 H Exam Physical Exam Const alert, oriented x3 and no apparent distress General Appearance: cooperative HEENT normocephalic HEENT Narrative: Bilateral Tympanostomy tubes in place. Eyes General Eye: normal appearance of both eyes Resp normal respiratory effort, no use of accessory muscles and clear to auscultation bilaterally Effort and Inspection: able to speak in complete sentences Cardio regular rate and regular rhythm Palpation: normal PMI Psych mental status grossly normal, thought process normal, cooperative, affect normal and speech normal Charges/Coding Wound Center CF Procedures HBO Supervision: [id number] Hyperbaric Oxygen; supervision Assessment/Plan Assessment/Plan (1) Type 2 diabetes mellitus with foot ulcer: CODE(S): E11.621 - Type 2 diabetes mellitus with foot ulcer; L97.509 - Non-pressure chronic ulcer of other part of unspecified foot with unspecified severity QUALIFIERS: Diabetes mellitus senior care insulin use: with senior care use Qualified Code(s): E11.621 - Type 2 diabetes mellitus with foot ulcer; L97.509 - Non-pressure chronic ulcer of other part of unspecified foot with unspecified severity; Z79.4 - truck terminal manager (current) use of insulin (2) Non-pressure chronic ulcer of other part of right foot with fat layer exposed: CODE(S): L97.512 - Non-pressure chronic ulcer of other part of right foot with fat layer exposed (3) Type 2 diabetes mellitus with diabetic polyneuropathy: CODE(S): E11.42 - Type 2 diabetes mellitus with diabetic polyneuropathy QUALIFIERS: Diabetes mellitus senior care insulin use: with terminal superintendent use Qualified Code(s): E11.42 - Type 2 diabetes mellitus with diabetic polyneuropathy; Z79.4 - snf (current) use of insulin (4) Charcot's joint of right foot: CODE(S): M14.671 - Charcot's joint, right ankle and foot PLAN: Plan The patient appears to be tolerating hyperbaric oxygen therapy well, which will be continued as per their medical treatment plan.
[2024-07-11 10:57] LABS: Bedside Glucose 119 mg/dL (74-106)
[2024-07-11 11:07] VITALS: BP 100/76; BP 140/70; PULSE 101; PULSE 83; RESP 16; TEMP 36.1; TEMP 36.2
[2024-07-12 13:21] VITALS: BP 100/64; BP 126/72; PULSE 72; PULSE 89; RESP 16; TEMP 35.9; TEMP 36.3
[2024-07-12 15:30] LABS: Bedside Glucose 146 mg/dL (74-106)
[2024-07-12 15:33] LABS: Bedside Glucose 91 mg/dL (74-106)
--- NOTE | 2024-07-12 15:49 | HBO.PN.PCM_ITS ---
History of Present Illness Date of Service: 07/12/24 Chief Complaint: Diabetic right foot ulceration History of Wound: Ms. Falk is a 58-year-old currently being seen at the wound center for right foot/ankle ulcer. She is currently undergoing hyperbaric oxygen therapy for the diabetic foot ulceration involving her right foot. She has been under the care of Dr. Jason Lewis, Medical Sales, relative to the management of her diabetic foot ulceration. Review of the patient's medical record indicates that she has tolerated HBOT well and there has been corresponding significant improvement in ulcer. 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 Blood glucose readings have been largely stable. No chest pain, tightness, blurry vision or concerns reported. Progress of Wound: Progress: Today's session represents the 50th session. She has been approved for a total of 60 sessions. Tolerance: Hyperbaric oxygen therapy was administered as per the facility's protocol. HBO therapy was administered at 100% oxygen at 2 KELLY for 90 minutes without air breaks. She tolerated hyperbaric oxygen therapy without any complaints or complications. Upon emergence from the chamber, her vitals remained stable. She was discharged in stable condition. Pre and post blood glucose readings as documented. Objective Data Objective Data Vital Signs: Vital Signs Temp Pulse Resp BP 97.4 F L 89 16 126/72 H 07/12/24 13:21 07/12/24 13:21 07/12/24 13:21 07/12/24 13:21 Lab / Micro Data Labs: Laboratory Results - last 24 hr 07/12/24 13:05: POC Glucose 146 H 07/12/24 15:15: POC Glucose 91 Exam Physical Exam Const alert, oriented x3, no apparent distress and well nourished General Appearance: cooperative and well developed HEENT normocephalic and EAC's normal Head and Scalp: atraumatic Eyes EOMs intact bilaterally Neck no JVD Resp normal respiratory effort and no use of accessory muscles Effort and Inspection: able to speak in complete sentences Psych affect normal Appearance: grossly normal and well kempt Speech: normal speech Charges/Coding Wound Center CF Procedures HBO Supervision: [id number] Hyperbaric Oxygen; supervision Assessment/Plan Assessment/Plan (1) Type 2 diabetes mellitus with foot ulcer: CODE(S): E11.621 - Type 2 diabetes mellitus with foot ulcer; L97.509 - Non-pressure chronic ulcer of other part of unspecified foot with unspecified severity QUALIFIERS: Diabetes mellitus long-term insulin use: with long-term use Qualified Code(s): E11.621 - Type 2 diabetes mellitus with foot ulcer; L97.509 - Non-pressure chronic ulcer of other part of unspecified foot with unspecified severity; Z79.4 - terminologist (current) use of insulin (2) Non-pressure chronic ulcer of other part of right foot with fat layer expos ed: CODE(S): L97.512 - Non-pressure chronic ulcer of other part of right foot with fat layer exposed (3) Type 2 diabetes mellitus with diabetic polyneuropathy: CODE(S): E11.42 - Type 2 diabetes mellitus with diabetic polyneuropathy QUALIFIERS: Diabetes mellitus long-term insulin use: with intermediate manager use Qualified Code(s): E11.42 - Type 2 diabetes mellitus with diabetic polyneuropathy; Z79.4 - correction (current) use of insulin (4) Charcot's joint of right foot: CODE(S): M14.671 - Charcot's joint, right ankle and foot PLAN: Plan The patient continues to tolerate hyperbaric oxygen therapy well, which will be continued as per the patient's medical plan.
[2024-07-13 08:40] LABS: Bedside Glucose 189 mg/dL (74-106)
[2024-07-13 08:54] VITALS: BP 115/66; BP 123/70; PULSE 62; PULSE 88; RESP 16; TEMP 35.9; TEMP 36.2
[2024-07-13 10:55] LABS: Bedside Glucose 126 mg/dL (74-106)
[2024-07-13 11:49] VITALS: BP 115/66; PULSE 62; RESP 16; TEMP 36.2
--- NOTE | 2024-07-13 13:13 | HBO.PN.PCM_ITS ---
History of Present Illness Date of Service: 07/13/24 Chief Complaint: Diabetic right foot ulceration History of Wound: Ms. Falk is a 58-year-old currently being seen at the wound center for right foot/ankle ulcer. She is currently undergoing hyperbaric oxygen therapy for the diabetic foot ulceration involving her right foot. She has been under the care of Dr. Jason Lewis, Information Systems Security Analyst, relative to the management of her diabetic foot ulceration. Review of the patient's medical record indicates that she has tolerated HBOT well and there has been corresponding significant improvement in ulcer. 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 Blood glucose readings have been largely stable. No chest pain, tightness, blurry vision or concerns reported. Progress of Wound: Progress: Today's session represents the 51st session. She has been approved for a total of 60 sessions. Tolerance: Hyperbaric oxygen therapy was administered as per the facility's protocol. HBO therapy was administered at 100% oxygen at 2 KELLY for 90 minutes without air breaks. She tolerated hyperbaric oxygen therapy without any complaints or complications. Upon emergence from the chamber, her vitals remained stable. She was discharged in stable condition. Pre and post blood glucose readings as documented. Objective Data Objective Data Vital Signs: Vital Signs Temp Pulse Resp BP O2 Del Method 97.2 F L 62 16 115/66 Room Air 07/13/24 11:49 07/13/24 11:49 07/13/24 11:49 07/13/24 11:49 07/13/24 11:49 Oxygen Delivery Method Room Air Lab / Micro Data Labs: Laboratory Results - last 24 hr 07/12/24 13:05: POC Glucose 146 H 07/12/24 15:15: POC Glucose 91 07/13/24 08:22: POC Glucose 189 H 07/13/24 10:37: POC Glucose 126 H Exam Physical Exam Const alert, oriented x3 and no apparent distress General Appearance: cooperative HEENT normocephalic HEENT Narrative: Bilateral Tympanostomy tubes in place. Eyes General Eye: normal appearance of both eyes Resp normal respiratory effort, no use of accessory muscles and clear to auscultation bilaterally Effort and Inspection: able to speak in complete sentences Cardio regular rate and regular rhythm Palpation: normal PMI Psych mental status grossly normal, thought process normal, cooperative, affect normal and speech normal Nursing Assessment and Debridement Post-Debridement Measurements and Additional Note: Post-Debridement Measurements/Treatment - Nurse 1 - General Ulcer Assessment Start: 06/26/24 11:06 Freq: Status: Active Protocol: RUKHSANA Activity Type Activity Date Activity User E-sign Co-sign Detail Recorded Client Recorded Date Recorded By Document 07/13/24 11:49 NO [id number] 07/13/24 11:51 07/13/24 11:49 - Today's Visit Information Type of service Follow-up Visit (Physician/ELEMENTARY SCHOOL PRINCIPAL ) Arrival Mode Ambulatory Patient Identification Verified (Name & Yes ) Vital Signs Temperature (97.8 F-99.1 F) 97.2 F L Temperature Source Temporal Pulse Rate (60-100) 62 Pulse Location Monitor Respiratory Rate (12-18) 16 Respiratory rate source Observation Oxygen Delivery Method Room Air Blood Pressure (90/60-120/80) 115/66 Blood Pressure Mean (mm Hg) 82 Source Monitor Position Semi-Fowlers Blood Pressure Location Left Arm History Since Last Visit- (Skip if this is Patient's initial visit) Have you changed medications since your No last visit? Any new allergies or adverse reactions No Had a fall/change in ADL's that may No increase risk of falls Signs or symptoms of abuse and/or No neglect since last visit Have you been in the hospital since your No last visit? Has dressing in place as prescribed Yes Has compression in place as prescribed Yes Has offloadiing in place as prescribed Yes Experienced any changes in pain level or No management Left Footwear Regular Shoe Right Footwear Removable Cast Walker/Walking Boot Pain Scale: 0-10 Numeric Is Patient Pain Free? Yes Moe Nurse 1 - General Ulcer Measurement Start: 06/26/24 11:06 Freq: Status: Active Protocol: Activity Type Activity Date Activity User E-sign Co-sign Detail Recorded Client Recorded Date Recorded By Document 07/13/24 11:49 NO [id number] 07/13/24 11:51 KW 07/13/24 11:49 Wound Center Nurse 1 #5 RDorsal/Anterior Ankle -Current Size (cm) - Length 2.3 -Current Size (cm) - Width 1.3 -Current Size (cm) - Depth 0 -Total Square Cm 2.99 -Date of Last Picture (Recall this 07/13/24 field) -Epithelialization Medium 34-66% -Exudate Amt Small -Exudate Type Serosanguineous -Wound Margin Distinct, Outline Attached -Granulation Amt Large (67-100%) -Granulation Quality [place] -Texture (Marie-wound Skin Appearance) Assessed -Moisture (Marie-wound Skin Appearance) Assessed, Maceration -Color (Marie-wound Skin Appearance) Assessed -Temperature (Marie-wound Skin No Abnormality Appearance) (Pt Warm) -Tenderness on Palpation (Marie-wound No Skin Appearance) -Ulcer Cleansing Soap and Water -Foul Odor after Cleansing No -Anesthetic Used 5% Lidocaine Gel WC - Nurse 2 - General Ulcer CM Notes Start: 06/26/24 11:06 Freq: Status: Active Protocol: Activity Type Activity Date Activity User E-sign Co-sign Detail Recorded Client Recorded Date Recorded By Document 07/13/24 12:04 [facility] [id number] 07/13/24 12:16 [facility] 07/13/24 12:04 Wound Center Nurse 2 -Time 12:04 -Correct Patient Yes -Correct Side, Site, Position Yes -Correct Procedure Yes -Procedure Performed Yes -Type of Procedure Debridement -Clinical Debridement Subcutaneous -Tissue Removed Subcutaneous -Post Debridement (cm) - Length 2 -Post Debridement (cm) - Width 1.5 -Post Debridement (cm) - Depth 0.1 -Total Square (Post) (cm) 3.0 -Area of Debridement (cm) - Length 2 -Area of Debridement (cm) - Width 1.5 -Total Square (Area) (cm) 3.0 -Tunneling No -Undermining/Tunneling No -Circular Undermining No -Wound/Ulcer Outcome Not Healed -Ulcer Cleansing Rinsed/ Irrigated with Saline -Foul Odor after Cleansing No -Bioengineered Tissue No -Bleeding Controlled with Pressure,Silver Nitrate -Treatment Response Procedure Tolerated Well -Debridement - Subq, 1st 20sq cm Yes Pain Scale: 0-10 Numeric Is Patient Pain Free? Yes - Nurse 3 - General Ulcer D/C NN Start: 06/26/24 11:06 Freq: Status: Active Protocol: Activity Type Activity Date Activity User E-sign Co-sign Detail Recorded Client Recorded Date Recorded By Document 07/13/24 12:22 [id number] 07/13/24 12:23 07/13/24 12:22 Wound Care Center Nurse 3 #5 RDorsal/Anterior Ankle -Primary Dressing Applied Aquacel Extra, Collagen Powder -Other Dressing hydrogel with powder -Primary Dressing Covered/Secured with Dry Gauze & Roll Gauze, Secured with Tape -Aquacel Extra 1 -Collagen Powder 1 Right -Compression Wrap Sebastian Wrap Pain Scale: 0-10 Numeric Is Patient Pain Free? Yes WC - Visit Discharge Discharge Condition Stable Ambulatory Status Ambulatory Transportation Private Auto Medication Reconcilliation completed & No provided to patient/care provider Clinical Summary of Care Provided Yes Charges/Coding Wound Center CF Procedures HBO Supervision: [id number] Hyperbaric Oxygen; supervision Assessment/Plan Assessment/Plan (1) Type 2 diabetes mellitus with foot ulcer: CODE(S): E11.621 - Type 2 diabetes mellitus with foot ulcer; L97.509 - Non-pressure chronic ulcer of other part of unspecified foot with unspecified severity QUALIFIERS: Diabetes mellitus penitentiary insulin use: with watermaster use Qualified Code(s): E11.621 - Type 2 diabetes mellitus with foot ulcer; L97.509 - Non-pressure chronic ulcer of other part of unspecified foot with unspecified severity; Z79.4 - long term (current) use of insulin (2) Non-pressure chronic ulcer of other part of right foot with fat layer exposed: CODE(S): L97.512 - Non-pressure chronic ulcer of other part of right foot with fat layer exposed (3) Type 2 diabetes mellitus with diabetic polyneuropathy: CODE(S): E11.42 - Type 2 diabetes mellitus with diabetic polyneuropathy QUALIFIERS: Diabetes mellitus penitentiary insulin use: with penitentiary use Qualified Code(s): E11.42 - Type 2 diabetes mellitus with diabetic polyneuropathy; Z79.4 - long term (current) use of insulin (4) Charcot's joint of right foot: CODE(S): M14.671 - Charcot's joint, right ankle and foot PLAN: Plan The patient continues to tolerate hyperbaric oxygen therapy well, which will be continued as per the patient's medical plan.
--- NOTE | 2024-07-13 13:15 | PCM.WC.PN ---
History of Present Illness Date of Service: 07/13/24 Chief Complaint: Diabetic right foot ulceration History of Wound: Ms. Falk is a 58-year-old currently being seen at the wound center for right foot/ankle ulcer. She is currently undergoing hyperbaric oxygen therapy for the diabetic foot ulceration involving her right foot. She has been under the care of Dr. Jason Lewis, Clinical Psychology Teacher, relative to the management of her diabetic foot ulceration. Review of the patient's medical record indicates that she has tolerated HBOT well and there has been corresponding significant improvement in ulcer. 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 Blood glucose readings have been largely stable. No chest pain, tightness, blurry vision or concerns reported. Progress of Wound: Progress: Today's session represents the 51st session. She has been approved for a total of 60 sessions. Tolerance: Hyperbaric oxygen therapy was administered as per the facility's protocol. HBO therapy was administered at 100% oxygen at 2 KELLY for 90 minutes without air breaks. She tolerated hyperbaric oxygen therapy without any complaints or complications. Upon emergence from the chamber, her vitals remained stable. She was discharged in stable condition. Pre and post blood glucose readings as documented. Subjective Subjective This is a 58-year-old female who continues to follow with the wound care center for right dorsal foot ulceration. She had previously undergone I&D on 02/10/2024 of the right foot. Continues healing and is changing dressing daily. Continues HBO dives following tube placement in ears and is doing well. Ulcer site continues improvement with HBO therapy. She feels ulceration is improving and looking better each week. Denies constitutional symptoms. Denies further complaints. Objective Data Objective Data Vital Signs: Vital Signs Temp Pulse Resp BP O2 Del Method 97.2 F L 62 16 115/66 Room Air 07/13/24 11:49 07/13/24 11:49 07/13/24 11:49 07/13/24 11:49 07/13/24 11:49 Oxygen Delivery Method Room Air Lab / Micro Data Labs: Laboratory Results - last 24 hr 07/12/24 13:05: POC Glucose 146 H 07/12/24 15:15: POC Glucose 91 07/13/24 08:22: POC Glucose 189 H 07/13/24 10:37: POC Glucose 126 H Physical Exam Const alert, oriented x3 and no apparent distress General Appearance: cooperative HEENT normocephalic Eyes General Eye: normal appearance of both eyes Neck General: normal visual inspection Lymph Lymphatic: no lymphadenopathy noted and no lymphedema noted Resp normal respiratory effort Cardio regular rate and regular rhythm Extremity Extremity Narrative: Right lower extremity: Vascular: DP and PT pulses palpable with adequate capillary fill time to the digits. Normal temperature gradient. Hair growth is absent to the digits. Neurologic: Gross sensation intact. Absent protective sensation consistent with diabetic peripheral polyneuropathy Musculoskeletal: No pain to palpation about the ulcerative site secondary to diabetic peripheral polyneuropathy. There is a Charcot foot deformity noted of the right foot. No pain to palpation about the ulcerative site. Dermatologic: Incision site medial foot healed with cicatrix. No signs of infection. Incision site anterior leg with cicatrix proximally and distally. No signs of infection. There is a full thickness ulceration dorsally along the midfoot medial to the incision site with healthy granular tissue and some hypergranular tissue. Ulceration continues improvement with reduction in size and is progressing well. Ulceration site demonstrates no signs of infection. Debridement Note Debridement Note Wound debrided: Right foot Laterality: Right Wound Grade/Stage: Gonzalez stage III Type of Debridement: Excisional debridement Anesthesia Used: 5% Lidocaine Gel Depth: Down to and including healthy tissue and in the subcutaneous layer Percentage of wound debrided: 100 Instrument Used: 7mm curette, #15 blade and Forceps Tissue Removed: Fibrous, devitalized subcutaneous, biofilm, slough Severity: Fat Layer Exposed Amount of bleeding with debridement: Mild Bleeding Controlled with: Compression and gauze and Silver Nitrate (Chemical cauterization of proud flesh performed) Patient tolerated procedure: Patient tolerated procedure well Post-Debridement Measurements and Additional Note: Post-Debridement Measurements/Treatment ALISSA - Nurse 1 - General Ulcer Assessment Start: 06/26/24 11:06 Freq: Status: Active Protocol: RUKHSANA Activity Type Activity Date Activity User E-sign Co-sign Detail Recorded Client Recorded Date Recorded By Document 06/29/24 10:57 DL [id number] 06/29/24 11:03 DL Document 07/06/24 11:33 RB [id number] 07/06/24 11:38 RB Document 07/13/24 11:49 KW [id number] 07/13/24 11:51 KW 06/29/24 07/06/24 07/13/24 10:57 11:33 11:49 WC - Today's Visit Information Type of service Follow-up Visit Follow-up Visit Follow-up Visit (Physician/HEARING CARE PRACTITIONER (Physician/HEARING CARE PRACTITIONER (Physician/HEARING CARE PRACTITIONER ) ) ) Arrival Mode Ambulatory Ambulatory Ambulatory Transfer Assistance None None Patient Identification Verified (Name & Yes Yes Yes ) Patient Requires Transmission-Based No No Precautions Vital Signs Temperature (97.8 F-99.1 F) 96.6 F L 98.3 F 97.2 F L Temperature Source Temporal Temporal Temporal Pulse Rate (60-100) 71 84 62 Pulse Location Monitor Monitor Monitor Respiratory Rate (12-18) 16 18 16 Respiratory rate source Observation Observation Observation Oxygen Delivery Method Room Air Blood Pressure (90/60-120/80) 118/75 147/60 H 115/66 Blood Pressure Mean (mm Hg) 89 89 82 Source Monitor Monitor Monitor Position Semi-Fowlers Semi-Fowlers Blood Pressure Location Left Arm Left Arm History Since Last Visit- (Skip if this is Patient's initial visit) Have you changed medications since your No No No last visit? Any new allergies or adverse reactions No No No Had a fall/change in ADL's that may No No No increase risk of falls Signs or symptoms of abuse and/or No No No neglect since last visit Have you been in the hospital since your No No No last visit? Has dressing in place as prescribed Yes Yes Yes Has compression in place as prescribed Yes Yes Yes Has offloadiing in place as prescribed Yes Yes Yes Experienced any changes in pain level or No No No management Left Footwear Regular Shoe Regular Shoe Right Footwear Removable Cast Removable Cast Walker/Walking Walker/Walking Boot Boot Pain Scale: 0-10 Numeric Is Patient Pain Free? Yes No Yes lower back -Description Aching -Intensity 8 -Duration (hours) Acute -Pain Behavior Guarding -Pain Aggravating Factors Exercise/ Activity -Alleviating Factors/Interventions Medication -Effectiveness of Alleviating Factor/ Moderately Intervention effective WC - Nurse 1 - General Ulcer Measurement Start: 06/26/24 11:06 Freq: Status: Active Protocol: Activity Type Activity Date Activity User E-sign Co-sign Detail Recorded Client Recorded Date Recorded By Document 06/29/24 10:57 DL [id number] 06/29/24 11:03 DL Document 07/06/24 11:33 RB [id number] 07/06/24 11:38 RB Document 07/13/24 11:49 KW [id number] 07/13/24 11:51 KW 06/29/24 07/06/24 07/13/24 10:57 11:33 11:49 Wound Center Nurse 1 #5 RDorsal/Anterior Ankle -Combined with other wound No -Current Size (cm) - Length 2.5 2.5 2.3 -Current Size (cm) - Width 1.5 1.5 1.3 -Current Size (cm) - Depth 0.1 0.1 0 -Total Square Cm 3.75 3.75 2.99 -Date of Last Picture (Recall this 07/13/24 field) -Photo Taken Yes Yes -Epithelialization Medium 34-66% -Tunneling No -Undermining/Tunneling No -Circular Undermining No -Exudate Amt Medium Large Small -Exudate Type Serosanguineous Serosanguineous Serosanguineous -Wound Margin Distinct, Distinct, Distinct, Outline Outline Outline Attached Attached Attached -Granulation Amt None Present (0 Large (67-100%) Large (67-100%) %) -Granulation Quality Hyper- Hyper- Electra granulation granulation, Electra,Red -Slough/Fibrin Yes -Necrosis Amt Large (67-100%) Medium (34-66%) -Necrotic Tissue Type Adherent Slough Adherent Slough -Structure Exposed N/A N/A -Texture (Marie-wound Skin Appearance) Scarring Assessed, Assessed Scarring -Moisture (Marie-wound Skin Appearance) Dry/Scaly Maceration Assessed, Maceration -Color (Marie-wound Skin Appearance) No Abnormality Assessed Assessed -Temperature (Marie-wound Skin No Abnormality No Abnormality No Abnormality Appearance) (Pt Warm) (Pt Warm) (Pt Warm) -Tenderness on Palpation (Marie-wound No No No Skin Appearance) -Ulcer Cleansing Soap and Water Wound Cleanser Soap and Water -Foul Odor after Cleansing No No No -Anesthetic Used 5% Lidocaine 5% Lidocaine 5% Lidocaine Gel Gel Gel Right Calf (cm) 36 Right Ankle (cm) 21.3 WC - Nurse 2 - General Ulcer CM Notes Start: 06/26/24 11:06 Freq: Status: Active Protocol: Activity Type Activity Date Activity User E-sign Co-sign Detail Recorded Client Recorded Date Recorded By Document 06/29/24 11:29 [facility] [id number] 06/29/24 11:44 [facility] Document 07/06/24 12:29 [facility] [id number] 07/06/24 12:40 [facility] Document 07/13/24 12:04 [facility] [id number] 07/13/24 12:16 [facility] 06/29/24 07/06/24 07/13/24 11:29 12:29 12:04 Wound Center Nurse 2 #5 RDorsal/Anterior Ankle -Time 11:29 12:29 12:04 -Correct Patient Yes Yes Yes -Correct Side, Site, Position Yes Yes Yes -Correct Procedure Yes Yes Yes -Procedure Performed Yes Yes Yes -Type of Procedure Debridement Debridement Debridement -Clinical Debridement Subcutaneous Subcutaneous Subcutaneous -Tissue Removed Subcutaneous Subcutaneous Subcutaneous -Post Debridement (cm) - Length 2 2.1 2 -Post Debridement (cm) - Width 1.6 1.6 1.5 -Post Debridement (cm) - Depth 0.1 0.1 0.1 -Total Square (Post) (cm) 3.2 3.36 3.0 -Area of Debridement (cm) - Length 2 2.1 2 -Area of Debridement (cm) - Width 1.6 1.6 1.5 -Total Square (Area) (cm) 3.2 3.36 3.0 -Tunneling No No No -Undermining/Tunneling No No No -Circular Undermining No No No -Wound/Ulcer Outcome Not Healed Not Healed Not Healed -Ulcer Cleansing Rinsed/ Rinsed/ Rinsed/ Irrigated with Irrigated with Irrigated with Saline Saline Saline -Foul Odor after Cleansing No No No -Bioengineered Tissue No No No -Bleeding Controlled with Pressure,Silver Pressure,Silver Pressure,Silver Nitrate Nitrate Nitrate -Treatment Response Procedure Procedure Procedure Tolerated Well Tolerated Well Tolerated Well -Debridement - Subq, 1st 20sq cm Yes Yes Yes Pain Scale: 0-10 Numeric Is Patient Pain Free? Yes Yes Yes - Nurse 3 - General Ulcer D/C NN Start: 06/26/24 11:06 Freq: Status: Active Protocol: Activity Type Activity Date Activity User E-sign Co-sign Detail Recorded Client Recorded Date Recorded By Document 06/29/24 11:52 CP [id number] 06/29/24 11:53 CP Document 07/06/24 12:53 RB [id number] 07/06/24 12:54 RB Document 07/13/24 12:22 KW [id number] 07/13/24 12:23 KW 06/29/24 07/06/24 07/13/24 11:52 12:53 12:22 Wound Care Center Nurse 3 #5 RDorsal/Anterior Ankle -Ulcer Cleansing Rinsed/ Rinsed/ Irrigated with Irrigated with Saline Saline -Primary Dressing Applied Aquacel Extra, Aquacel Extra,C Collagen Powder Hydrogel, Collagen Powder -Other Dressing ABD pad -Primary Dressing Covered/Secured with Dry Gauze & Dry Gauze & Roll Gauze Roll Gauze -Aquacel Extra 1 1 -Wound Comment(s) sebastian Right -Compression Wrap Sebastian Wrap -Other sebastian Treatment Response Procedure Tolerated Well Pain Scale: 0-10 Numeric Is Patient Pain Free? Yes Yes Yes WC - Visit Discharge Discharge Condition Stable Stable Ambulatory Status Ambulatory Ambulatory Transportation Private Auto Private Auto Medication Reconcilliation completed & No No provided to patient/care provider Clinical Summary of Care Provided Yes Yes #5 RDorsal/Anterior Ankle -Primary Dressing Applied Aquacel Extra, Collagen Powder -Other Dressing hydrogel with powder -Primary Dressing Covered/Secured with Dry Gauze & Roll Gauze, Secured with Tape -Aquacel Extra 1 -Collagen Powder 1 Right -Compression Wrap Sebastian Wrap Assessment/Plan Assessment/Plan (1) Non-pressure chronic ulcer of other part of right foot with fat layer exposed: CODE(S): L97.512 - Non-pressure chronic ulcer of other part of right foot with fat layer exposed (2) Charcot's joint of right foot: CODE(S): M14.671 - Charcot's joint, right ankle and foot (3) Type 2 diabetes mellitus with diabetic polyneuropathy: CODE(S): E11.42 - Type 2 diabetes mellitus with diabetic polyneuropathy QUALIFIERS: Diabetes mellitus residential insulin use: with intermodal owner operator truck driver use Qualified Code(s): E11.42 - Type 2 diabetes mellitus with diabetic polyneuropathy; Z79.4 - watermaster (current) use of insulin (4) Type 2 diabetes mellitus with foot ulcer: CODE(S): E11.621 - Type 2 diabetes mellitus with foot ulcer; L97.509 - Non-pressure chronic ulcer of other part of unspecified foot with unspecified severity QUALIFIERS: 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: with residential use Qualified Code(s): E11.621 - Type 2 diabetes mellitus with foot ulcer; L97.509 - Non-pressure chronic ulcer of other part of unspecified foot with unspecified severity; Z79.4 - watermaster (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 DOS 02/10/2024, POD #[id number] She is 5 months out of surgery. Cicatrix at incision sites medial foot and anterior leg with no signs of infection. Ulceration dorsal foot continues granulating in well versus her previous visit. She continues healing well at this time and continues HBO dives following tube placement. Ulceration predebridement measures 1.9 cm x 1.4 cm x 0.1 cm Ulceration did undergo debridement as noted on clinical panel above. Chemical (04570) cauterization was performed of the hypergranular tissue today. Postdebridement measurements 2.0 cm x 1.5 cm x 0.1 cm. Has completed all 10 applications of EpiFix #10. Collagen powder moistened with hydrogel applied to the ulcerative bed today. Aquacel Ag and DSD applied. She is to change dressing daily. Ulceration demonstrates slight reduction in size vs previous visit. Overall healing well and progressing towards healing. She was approved for EpiFix, completed all 10 applications. Has previously completed oral antibiotic doxycycline 100 mg twice daily and Augmentin 875mg daily. Will be permitted to continue protective weightbearing to the right lower extremity in CAM boot. Previously discussed medical clearance for HBO and she has been cleared by Dr. Howard. She will continue HBO dives as this is essential to her healing. She has had previous lab work drawn while in hospital 03/08/2024 [facility]. Did have chest x-ray during her hospital stay in January 2024 along with echocardiogram. Did undergo EKG for evaluation prior to dive. HgbA1c during hospital admission was 11.3% on 02/15/2024. Sugars have been well controlled following approval of insulin on new insurance. I do expect her A1c to continue to decrease. PICC removed 03/31/24. Following with ID. The following work up and care recommendations were made: Dressing: Collagen powder moistened with hydrogel, Aquacel Ag, dry sterile dressing right foot. Change daily Wash: Soap and water Tissue growth optimization: Collagen powder and hydrogel Offload: Nonweightbearing to the right lower extremity Vascular: DP and PT pulses palpable with adequate capillary fill time. Vascular status not impacting healing at this time. Edema: Edema well-controlled. Will continue with Tubigrip stocking application Infection: No signs of infection. Currently on IV antibiotics via PICC line. Will continue daptomycin and Unasyn per ID Pain: No pain to the ulcerative site secondary to diabetic peripheral polyneuropathy Host factors: DM type II with peripheral polyneuropathy, uncontrolled. Charcot foot right foot At this time prognosis is good and she continues healing well. Will continue HBO therapy as this is aiding in wound healing. I answered all the patient's questions. To return to the wound healing center in 1 week or call sooner if the patient has any questions or concerns.
--- NOTE | 2024-07-14 12:21 | WC ---
PHOTO 07/13/24 Right Dorsal
[2024-07-17 08:38] LABS: Bedside Glucose 188 mg/dL (74-106)
[2024-07-17 10:47] VITALS: BP 116/66; BP 134/70; PULSE 78; PULSE 94; RESP 14; RESP 15; TEMP 36; TEMP 36.1
[2024-07-17 10:53] LABS: Bedside Glucose 138 mg/dL (74-106)
--- NOTE | 2024-07-17 13:07 | PCM.HBO.PN ---
History of Present Illness Date of Service: 07/17/24 Chief Complaint: Diabetic right foot ulceration History of Wound: Ms. Falk is a 58-year-old currently being seen at the wound center for right foot/ankle ulcer. She is currently undergoing hyperbaric oxygen therapy for the diabetic foot ulceration involving her right foot. She has been under the care of Dr. Jason Lewis, Prop Maker, relative to the management of her diabetic foot ulceration. Review of the patient's medical record indicates that she has tolerated HBOT well and there has been corresponding significant improvement in ulcer. 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 Blood glucose readings have been largely stable. No chest pain, tightness, blurry vision or concerns reported. Progress of Wound: Progress: Today's session represents the 52nd session. She has been approved for a total of 60 sessions. Tolerance: Hyperbaric oxygen therapy was administered as per the facility's protocol. HBO therapy was administered at 100% oxygen at 2 KELLY for 90 minutes without air breaks. She tolerated hyperbaric oxygen therapy without any complaints or complications. Upon emergence from the chamber, her vitals remained stable. She was discharged in stable condition. Pre and post blood glucose readings as documented. Objective Data Objective Data Vital Signs: Vital Signs Temp Pulse Resp BP O2 Del Method 96.8 F L 94 14 116/66 Room Air 07/17/24 10:47 07/17/24 10:47 07/17/24 10:47 07/17/24 10:47 07/13/24 11:49 Oxygen Delivery Method Room Air Lab / Micro Data Labs: Laboratory Results - last 24 hr 07/17/24 08:21: POC Glucose 188 H 07/17/24 10:35: POC Glucose 138 H Exam Physical Exam Const alert, oriented x3 and no apparent distress General Appearance: cooperative HEENT normocephalic HEENT Narrative: Bilateral Tympanostomy tubes in place. Eyes General Eye: normal appearance of both eyes Resp normal respiratory effort, no use of accessory muscles and clear to auscultation bilaterally Effort and Inspection: able to speak in complete sentences Cardio regular rate and regular rhythm Palpation: normal PMI Psych mental status grossly normal, thought process normal, cooperative, affect normal and speech normal Charges/Coding Wound Center CF Procedures HBO Supervision: [id number] Hyperbaric Oxygen; supervision Assessment/Plan Assessment/Plan (1) Type 2 diabetes mellitus with foot ulcer: CODE(S): E11.621 - Type 2 diabetes mellitus with foot ulcer; L97.509 - Non-pressure chronic ulcer of other part of unspecified foot with unspecified severity QUALIFIERS: Diabetes mellitus termite renewal inspector insulin use: with termite renewal inspector use Qualified Code(s): E11.621 - Type 2 diabetes mellitus with foot ulcer; L97.509 - Non-pressure chronic ulcer of other part of unspecified foot with unspecified severity; Z79.4 - intermediate frame tender (current) use of insulin (2) Non-pressure chronic ulcer of other part of right foot with fat layer exposed: CODE(S): L97.512 - Non-pressure chronic ulcer of other part of right foot with fat layer exposed (3) Type 2 diabetes mellitus with diabetic polyneuropathy: CODE(S): E11.42 - Type 2 diabetes mellitus with diabetic polyneuropathy QUALIFIERS: Diabetes mellitus termite renewal inspector insulin use: with intermediate use Qualified Code(s): E11.42 - Type 2 diabetes mellitus with diabetic polyneuropathy; Z79.4 - intermediate frame tender (current) use of insulin (4) Charcot's joint of right foot: CODE(S): M14.671 - Charcot's joint, right ankle and foot PLAN: Plan The patient continues to tolerate hyperbaric oxygen therapy well, which will be continued as per the patient's medical plan.
[2024-07-18 08:45] LABS: Bedside Glucose 192 mg/dL (74-106)
[2024-07-18 09:01] VITALS: BP 107/62; PULSE 96; RESP 15; TEMP 36.3
--- NOTE | 2024-07-18 09:15 | HBO.PN.PCM_ITS ---
History of Present Illness Date of Service: 07/18/24 Chief Complaint: Diabetic right foot ulceration History of Wound: Ms. Falk is a 58-year-old currently being seen at the wound center for right foot/ankle ulcer. She is currently undergoing hyperbaric oxygen therapy for the diabetic foot ulceration involving her right foot. She has been under the care of Dr. Jason Lewis, Tobacco Grader, relative to the management of her diabetic foot ulceration. Review of the patient's medical record indicates that she has tolerated HBOT well and there has been corresponding significant improvement in ulcer. 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 Blood glucose readings have been largely stable. No chest pain, tightness, blurry vision or concerns reported. Progress of Wound: Progress: Today's session was supposed to by her 53rd session. She has been approved for a total of 60 sessions. She states that she had a headache after yesterday's session. When she got to her car, she felt a pop and had a nose bleed for about a minute. She states that her headache resolved after that and she felt fine. She felt comfortable trying to dive today. She denied feeling stuffy/congested. Once the pressure started with her dive she immediately started with a pressure headache and asked to have the dive stopped. She is not experiencing any nose bleeds but having a sinus headache. Discussed her trying to use sudefed and flonase nasal spray. Instructed her how to use the nasal spray. Will hold off on HBOT until her congestion resolves. Instructed her to follow up with her PCP or go to ED if symptoms worsen. She verbalized understanding. Objective Data Objective Data Vital Signs: Vital Signs Temp Pulse Resp BP O2 Del Method 97.3 F L 96 15 107/62 Room Air 07/18/24 09:01 07/18/24 09:01 07/18/24 09:01 07/18/24 09:01 07/13/24 11:49 Oxygen Delivery Method Room Air Lab / Micro Data Labs: Laboratory Results - last 24 hr 07/17/24 10:35: POC Glucose 138 H 07/18/24 08:28: POC Glucose 192 H Exam Physical Exam Const alert, oriented x3 and no apparent distress General Appearance: cooperative HEENT normocephalic HEENT Narrative: Bilateral Tympanostomy tubes in place. Eyes General Eye: normal appearance of both eyes Resp normal respiratory effort, no use of accessory muscles and clear to auscultation bilaterally Effort and Inspection: able to speak in complete sentences Cardio regular rate and regular rhythm Palpation: normal PMI Psych mental status grossly normal, thought process normal, cooperative, affect normal and speech normal Charges/Coding Visit Charges Office Visits / Consults: [id number] OV L2 Est 10min Assessment/Plan Assessment/Plan (1) Type 2 diabetes mellitus with foot ulcer: CODE(S): E11.621 - Type 2 diabetes mellitus with foot ulcer; L97.509 - Non-pressure chronic ulcer of other part of unspecified foot with unspecified severity QUALIFIERS: Diabetes mellitus termite control service representative insulin use: with custodial use Qualified Code(s): E11.621 - Type 2 diabetes mellitus with foot ulcer; L97.509 - Non-pressure chronic ulcer of other part of unspecified foot with unspecified severity; Z79.4 - long-term (current) use of insulin (2) Non-pressure chronic ulcer of other part of right foot with fat layer exposed: CODE(S): L97.512 - Non-pressure chronic ulcer of other part of right foot with fat layer exposed (3) Type 2 diabetes mellitus with diabetic polyneuropathy: CODE(S): E11.42 - Type 2 diabetes mellitus with diabetic polyneuropathy QUALIFIERS: Diabetes mellitus termite control service representative insulin use: with termite control service representative use Qualified Code(s): E11.42 - Type 2 diabetes mellitus with diabetic polyneuropathy; Z79.4 - long-term (current) use of insulin (4) Charcot's joint of right foot: CODE(S): M14.671 - Charcot's joint, right ankle and foot PLAN: Plan She states that she had a headache after yesterday's session. When she got to her car, she felt a pop and had a nose bleed for about a minute. She states that her headache resolved after that and she felt fine. She felt comfortable trying to dive today. She denied feeling stuffy/congested. Once the pressure started with her dive she immediately started with a pressure headache and asked to have the dive stopped. She is not experiencing any nose bleeds but having a sinus headache. Discussed her trying to use sudefed and flonase nasal spray. Instructed her how to use the nasal spray. Will hold off on HBOT until her congestion resolves. Instructed her to follow up with her PCP or go to ED if symptoms worsen. She verbalized understanding.
[2024-07-20 08:46] LABS: Bedside Glucose 222 mg/dL (74-106)
[2024-07-20 09:14] VITALS: BP 107/67; BP 120/65; PULSE 75; PULSE 94; RESP 14; RESP 15; TEMP 36.2; TEMP 36.4
--- NOTE | 2024-07-20 10:12 | PCM.HBO.PN ---
History of Present Illness Date of Service: 07/20/24 Chief Complaint: Diabetic right foot ulceration History of Wound: Ms. Falk is a 58-year-old currently being seen at the wound center for right foot/ankle ulcer. She is currently undergoing hyperbaric oxygen therapy for the diabetic foot ulceration involving her right foot. She has been under the care of Dr. Jason Lewis, Grad Intern, relative to the management of her diabetic foot ulceration. Review of the patient's medical record indicates that she has tolerated HBOT well and there has been corresponding significant improvement in ulcer. 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 Blood glucose readings have been largely stable. No chest pain, tightness, blurry vision or concerns reported. Progress of Wound: Progress: Today's session represents the 53rd session. She has been approved for a total of 60 sessions. She took a couple days off from HBOT due to headache/congestion. She has been using Flonase nasal spray and Sudafed and then was started on an antibiotic from her doctor. She states she is feeling better today. Tolerance: Hyperbaric oxygen therapy was administered as per the facility's protocol. HBO therapy was administered at 100% oxygen at 2 KELLY for 90 minutes without air breaks. She tolerated hyperbaric oxygen therapy without any complaints or complications. Upon emergence from the chamber, her vitals remained stable. She was discharged in stable condition. Pre and post blood glucose readings as documented. Objective Data Objective Data Vital Signs: Vital Signs Temp Pulse Resp BP O2 Del Method 97.5 F L 94 14 120/65 Room Air 07/20/24 09:14 07/20/24 09:14 07/20/24 09:14 07/20/24 09:14 07/13/24 11:49 Oxygen Delivery Method Room Air Lab / Micro Data Labs: Laboratory Results - last 24 hr 07/20/24 08:27: POC Glucose 222 H Exam Physical Exam Const alert, oriented x3 and no apparent distress General Appearance: cooperative HEENT normocephalic HEENT Narrative: Bilateral Tympanostomy tubes in place. Eyes General Eye: normal appearance of both eyes Resp normal respiratory effort, no use of accessory muscles and clear to auscultation bilaterally Effort and Inspection: able to speak in complete sentences Cardio regular rate and regular rhythm Palpation: normal PMI Psych mental status grossly normal, thought process normal, cooperative, affect normal and speech normal Charges/Coding Wound Center CF Procedures HBO Supervision: [id number] Hyperbaric Oxygen; supervision Assessment/Plan Assessment/Plan (1) Type 2 diabetes mellitus with foot ulcer: CODE(S): E11.621 - Type 2 diabetes mellitus with foot ulcer; L97.509 - Non-pressure chronic ulcer of other part of unspecified foot with unspecified severity QUALIFIERS: Diabetes mellitus usp insulin use: with truck terminal manager use Qualified Code(s): E11.621 - Type 2 diabetes mellitus with foot ulcer; L97.509 - Non-pressure chronic ulcer of other part of unspecified foot with unspecified severity; Z79.4 - termite control servicer (current) use of insulin (2) Non-pressure chronic ulcer of other part of right foot with fat layer exposed: CODE(S): L97.512 - Non-pressure chronic 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
[2024-07-20 10:56] LABS: Bedside Glucose 138 mg/dL (74-106)
[2024-07-20 11:22] VITALS: BP 125/69; PULSE 80; RESP 18; TEMP 36.4
--- NOTE | 2024-07-20 13:44 | PCM.WC.PN ---
History of Present Illness Date of Service: 07/20/24 Chief Complaint: Diabetic right foot ulceration History of Wound: Ms. Falk is a 58-year-old currently being seen at the wound center for right foot/ankle ulcer. She is currently undergoing hyperbaric oxygen therapy for the diabetic foot ulceration involving her right foot. She has been under the care of Dr. Jason Lewis, Electric [employer], relative to the management of her diabetic foot ulceration. Review of the patient's medical record indicates that she has tolerated HBOT well and there has been corresponding significant improvement in ulcer. 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 Blood glucose readings have been largely stable. No chest pain, tightness, blurry vision or concerns reported. Progress of Wound: Progress: Today's session represents the 53rd session. She has been approved for a total of 60 sessions. She took a couple days off from HBOT due to headache/congestion. She has been using Flonase nasal spray and Sudafed and then was started on an antibiotic from her doctor. She states she is feeling better today. Tolerance: Hyperbaric oxygen therapy was administered as per the facility's protocol. HBO therapy was administered at 100% oxygen at 2 KELLY for 90 minutes without air breaks. She tolerated hyperbaric oxygen therapy without any complaints or complications. Upon emergence from the chamber, her vitals remained stable. She was discharged in stable condition. Pre and post blood glucose readings as documented. Subjective Subjective This is a 58-year-old female who continues to follow with the wound care center for right dorsal foot ulceration. She had previously undergone I&D on 02/10/2024 of the right foot. Continues healing and is changing dressing daily. Continues HBO dives following tube placement in ears and is doing well. Ulcer site continues improvement with HBO therapy and reports 7 dives remain. She feels ulceration is improving and looking better each week. Denies constitutional symptoms. Denies further complaints. Objective Data Objective Data Vital Signs: Vital Signs Temp Pulse Resp BP O2 Del Method 97.6 F L 80 18 125/69 H Room Air 07/20/24 11:22 07/20/24 11:22 07/20/24 11:22 07/20/24 11:22 07/20/24 11:22 Oxygen Delivery Method Room Air Lab / Micro Data Labs: Laboratory Results - last 24 hr 07/20/24 08:27: POC Glucose 222 H 07/20/24 10:38: POC Glucose 138 H Physical Exam Const alert, oriented x3 and no apparent distress General Appearance: cooperative HEENT normocephalic Eyes General Eye: normal appearance of both eyes Neck General: normal visual inspection Lymph Lymphatic: no lymphadenopathy noted and no lymphedema noted Resp normal respiratory effort Cardio regular rate and regular rhythm Extremity Extremity Narrative: Right lower extremity: Vascular: DP and PT pulses palpable with adequate capillary fill time to the digits. Normal temperature gradient. Hair growth is absent to the digits. Neurologic: Gross sensation intact. Absent protective sensation consistent with diabetic peripheral polyneuropathy Musculoskeletal: No pain to palpation about the ulcerative site secondary to diabetic peripheral polyneuropathy. There is a Charcot foot deformity noted of the right foot. No pain to palpation about the ulcerative site. Dermatologic: Incision site medial foot healed with cicatrix. No signs of infection. Incision site anterior leg with cicatrix proximally and distally. No signs of infection. There is a full thickness ulceration dorsally along the midfoot medial to the incision site with healthy granular tissue and some hypergranular tissue. Ulceration continues improvement with reduction in size and is progressing well. Ulceration site demonstrates no signs of infection. Debridement Note Debridement Note Wound debrided: Right foot Laterality: Right Wound Grade/Stage: Gonzalez stage III Type of Debridement: Excisional debridement Anesthesia Used: 5% Lidocaine Gel Depth: Down to and including healthy tissue and in the subcutaneous layer Percentage of wound debrided: 100 Instrument Used: 5mm curette, #15 blade and Forceps Tissue Removed: Fibrous, devitalized subcutaneous, biofilm, slough Severity: Fat Layer Exposed Amount of bleeding with debridement: Mild Bleeding Controlled with: Compression and gauze Patient tolerated procedure: Patient tolerated procedure well Post-Debridement Measurements and Additional Note: Post-Debridement Measurements/Treatment WC - Nurse 1 - General Ulcer Assessment Start: 06/26/24 11:06 Freq: Status: Active Protocol: RUKHSANA Activity Type Activity Date Activity User E-sign Co-sign Detail Recorded Client Recorded Date Recorded By Document 06/29/24 10:57 DL [id number] 06/29/24 11:03 DL Document 07/06/24 11:33 RB [id number] 07/06/24 11:38 RB Document 07/13/24 11:49 KW [id number] 07/13/24 11:51 KW Document 07/20/24 11:22 KW [id number] 07/20/24 11:26 KW 06/29/24 07/06/24 07/13/24 10:57 11:33 11:49 - Today's Visit Information Type of service Follow-up Visit Follow-up Visit Follow-up Visit (Physician/HARNESS BUILDER (Physician/HARNESS BUILDER (Physician/HARNESS BUILDER ) ) ) Arrival Mode Ambulatory Ambulatory Ambulatory Transfer Assistance None None Patient Identification Verified (Name & Yes Yes Yes ) Patient Requires Transmission-Based No No Precautions Vital Signs Temperature (97.8 F-99.1 F) 96.6 F L 98.3 F 97.2 F L Temperature Source Temporal Temporal Temporal Pulse Rate (60-100) 71 84 62 Pulse Location Monitor Monitor Monitor Respiratory Rate (12-18) 16 18 16 Respiratory rate source Observation Observation Observation Oxygen Delivery Method Room Air Blood Pressure (90/60-120/80) 118/75 147/60 H 115/66 Blood Pressure Mean (mm Hg) 89 89 82 Source Monitor Monitor Monitor Position Semi-Fowlers Semi-Fowlers Blood Pressure Location Left Arm Left Arm History Since Last Visit- (Skip if this is Patient's initial visit) Have you changed medications since your No No No last visit? Any new allergies or adverse reactions No No No Had a fall/change in ADL's that may No No No increase risk of falls Signs or symptoms of abuse and/or No No No neglect since last visit Have you been in the hospital since your No No No last visit? Has dressing in place as prescribed Yes Yes Yes Has compression in place as prescribed Yes Yes Yes Has offloadiing in place as prescribed Yes Yes Yes Experienced any changes in pain level or No No No management Left Footwear Regular Shoe Regular Shoe Right Footwear Removable Cast Removable Cast Walker/Walking Walker/Walking Boot Boot Pain Scale: 0-10 Numeric Is Patient Pain Free? Yes No Yes lower back -Description Aching -Intensity 8 -Duration (hours) Acute -Pain Behavior Guarding -Pain Aggravating Factors Exercise/ Activity -Alleviating Factors/Interventions Medication -Effectiveness of Alleviating Factor/ Moderately Intervention effective 07/20/24 11:22 - Today's Visit Information Type of service Follow-up Visit (Physician/HARNESS BUILDER ) Arrival Mode Ambulatory Transfer Assistance Patient Identification Verified (Name & Yes ) Patient Requires Transmission-Based Precautions Vital Signs Temperature (97.8 F-99.1 F) 97.6 F L Temperature Source Temporal Pulse Rate (60-100) 80 Pulse Location Monitor Respiratory Rate (12-18) 18 Respiratory rate source Observation Oxygen Delivery Method Room Air Blood Pressure (90/60-120/80) 125/69 H Blood Pressure Mean (mm Hg) 87 Source Monitor Position Semi-Fowlers Blood Pressure Location Left Arm History Since Last Visit- (Skip if this is Patient's initial visit) Have you changed medications since your No last visit? Any new allergies or adverse reactions No Had a fall/change in ADL's that may No increase risk of falls Signs or symptoms of abuse and/or No neglect since last visit Have you been in the hospital since your No last visit? Has dressing in place as prescribed Yes Has compression in place as prescribed Yes Has offloadiing in place as prescribed Yes Experienced any changes in pain level or No management Left Footwear Regular Shoe Right Footwear Regular Shoe Pain Scale: 0-10 Numeric Is Patient Pain Free? Yes lower back -Description -Intensity -Duration (hours) -Pain Behavior -Pain Aggravating Factors -Alleviating Factors/Interventions -Effectiveness of Alleviating Factor/ Intervention WC - Nurse 1 - General Ulcer Measurement Start: 06/26/24 11:06 Freq: Status: Active Protocol: Activity Type Activity Date Activity User E-sign Co-sign Detail Recorded Client Recorded Date Recorded By Document 06/29/24 10:57 DL [id number] 06/29/24 11:03 DL Document 07/06/24 11:33 RB [id number] 07/06/24 11:38 RB Document 07/13/24 11:49 KW [id number] 07/13/24 11:51 KW Document 07/20/24 11:22 KW [id number] 07/20/24 11:26 KW 06/29/24 07/06/24 07/13/24 10:57 11:33 11:49 Wound Center Nurse 1 #5 RDorsal/Anterior Ankle -Combined with other wound No -Current Size (cm) - Length 2.5 2.5 2.3 -Current Size (cm) - Width 1.5 1.5 1.3 -Current Size (cm) - Depth 0.1 0.1 0 -Total Square Cm 3.75 3.75 2.99 -Date of Last Picture (Recall this 07/13/24 field) -Photo Taken Yes Yes -Epithelialization Medium 34-66% -Tunneling No -Undermining/Tunneling No -Circular Undermining No -Exudate Amt Medium Large Small -Exudate Type Serosanguineous Serosanguineous Serosanguineous -Wound Margin Distinct, Distinct, Distinct, Outline Outline Outline Attached Attached Attached -Granulation Amt None Present (0 Large (67-100%) Large (67-100%) %) -Granulation Quality Hyper- Hyper- [place] granulation granulation, [place],Red -Slough/Fibrin Yes -Necrosis Amt Large (67-100%) Medium (34-66%) -Necrotic Tissue Type Adherent Slough Adherent Slough -Structure Exposed N/A N/A -Texture (Marie-wound Skin Appearance) Scarring Assessed, Assessed Scarring -Moisture (Marie-wound Skin Appearance) Dry/Scaly Maceration Assessed, Maceration -Color (Marie-wound Skin Appearance) No Abnormality Assessed Assessed -Temperature (Marie-wound Skin No Abnormality No Abnormality No Abnormality Appearance) (Pt Warm) (Pt Warm) (Pt Warm) -Tenderness on Palpation (Marie-wound No No No Skin Appearance) -Ulcer Cleansing Soap and Water Wound Cleanser Soap and Water -Foul Odor after Cleansing No No No -Anesthetic Used 5% Lidocaine 5% Lidocaine 5% Lidocaine Gel Gel Gel Right Calf (cm) 36 Right Ankle (cm) 21.3 07/20/24 11:22 Wound Center Nurse 1 #5 RDorsal/Anterior Ankle -Combined with other wound -Current Size (cm) - Length 2 -Current Size (cm) - Width 1.5 -Current Size (cm) - Depth 0.1 -Total Square Cm 3.0 -Date of Last Picture (Recall this 07/20/24 field) -Photo Taken -Epithelialization -Tunneling -Undermining/Tunneling -Circular Undermining -Exudate Amt Small -Exudate Type Serosanguineous -Wound Margin Distinct, Outline Attached -Granulation Amt Large (67-100%) -Granulation Quality [place] -Slough/Fibrin -Necrosis Amt Small (1-33%) -Necrotic Tissue Type Adherent Slough -Structure Exposed -Texture (Marie-wound Skin Appearance) Assessed -Moisture (Marie-wound Skin Appearance) Assessed, Maceration -Color (Marie-wound Skin Appearance) Assessed -Temperature (Marie-wound Skin No Abnormality Appearance) (Pt Warm) -Tenderness on Palpation (Marie-wound No Skin Appearance) -Ulcer Cleansing Rinsed/ Irrigated with Saline -Foul Odor after Cleansing No -Anesthetic Used 5% Lidocaine Gel Right Calf (cm) Right Ankle (cm) WC - Nurse 2 - General Ulcer CM Notes Start: 06/26/24 11:06 Freq: Status: Active Protocol: Activity Type Activity Date Activity User E-sign Co-sign Detail Recorded Client Recorded Date Recorded By Document 06/29/24 11:29 BM [id number] 06/29/24 11:44 BM Document 07/06/24 12:29 BMF [id number] 07/06/24 12:40 BMF Document 07/13/24 12:04 BM [id number] 07/13/24 12:16 BM Document 07/20/24 11:38 BMF [id number] 07/20/24 11:54 BMF 06/29/24 07/06/24 07/13/24 11:29 12:29 12:04 Wound Center Nurse 2 #5 RDorsal/Anterior Ankle -Time 11:29 12:29 12:04 -Correct Patient Yes Yes Yes -Correct Side, Site, Position Yes Yes Yes -Correct Procedure Yes Yes Yes -Procedure Performed Yes Yes Yes -Type of Procedure Debridement Debridement Debridement -Clinical Debridement Subcutaneous Subcutaneous Subcutaneous -Tissue Removed Subcutaneous Subcutaneous Subcutaneous -Post Debridement (cm) - Length 2 2.1 2 -Post Debridement (cm) - Width 1.6 1.6 1.5 -Post Debridement (cm) - Depth 0.1 0.1 0.1 -Total Square (Post) (cm) 3.2 3.36 3.0 -Area of Debridement (cm) - Length 2 2.1 2 -Area of Debridement (cm) - Width 1.6 1.6 1.5 -Total Square (Area) (cm) 3.2 3.36 3.0 -Tunneling No No No -Undermining/Tunneling No No No -Circular Undermining No No No -Wound/Ulcer Outcome Not Healed Not Healed Not Healed -Ulcer Cleansing Rinsed/ Rinsed/ Rinsed/ Irrigated with Irrigated with Irrigated with Saline Saline Saline -Foul Odor after Cleansing No No No -Bioengineered Tissue No No No -Bleeding Controlled with Pressure,Silver Pressure,Silver Pressure,Silver Nitrate Nitrate Nitrate -Treatment Response Procedure Procedure Procedure Tolerated Well Tolerated Well Tolerated Well -Debridement - Subq, 1st 20sq cm Yes Yes Yes Pain Scale: 0-10 Numeric Is Patient Pain Free? Yes Yes Yes 07/20/24 11:38 Wound Center Nurse 2 #5 RDorsal/Anterior Ankle -Time 11:38 -Correct Patient Yes -Correct Side, Site, Position Yes -Correct Procedure Yes -Procedure Performed Yes -Type of Procedure Debridement -Clinical Debridement Subcutaneous -Tissue Removed Subcutaneous -Post Debridement (cm) - Length 2 -Post Debridement (cm) - Width 1.7 -Post Debridement (cm) - Depth 0.1 -Total Square (Post) (cm) 3.4 -Area of Debridement (cm) - Length 2 -Area of Debridement (cm) - Width 1.7 -Total Square (Area) (cm) 3.4 -Tunneling No -Undermining/Tunneling No -Circular Undermining No -Wound/Ulcer Outcome Not Healed -Ulcer Cleansing Rinsed/ Irrigated with Saline -Foul Odor after Cleansing No -Bioengineered Tissue No -Bleeding Controlled with Pressure -Treatment Response Procedure Tolerated Well -Debridement - Subq, 1st 20sq cm Yes Pain Scale: 0-10 Numeric Is Patient Pain Free? Yes - Nurse 3 - General Ulcer D/C NN Start: 06/26/24 11:06 Freq: Status: Active Protocol: Activity Type Activity Date Activity User E-sign Co-sign Detail Recorded Client Recorded Date Recorded By Document 06/29/24 11:52 CP [id number] 06/29/24 11:53 CP Document 07/06/24 12:53 RB [id number] 07/06/24 12:54 RB Document 07/13/24 12:22 KW [id number] 07/13/24 12:23 KW Document 07/20/24 12:34 DL [id number] 07/20/24 12:36 DL 06/29/24 07/06/24 07/13/24 11:52 12:53 12:22 Wound Care Center Nurse 3 #5 RDorsal/Anterior Ankle -Ulcer Cleansing Rinsed/ Rinsed/ Irrigated with Irrigated with Saline Saline -Primary Dressing Applied Aquacel Extra, Aquacel Extra,C Collagen Powder Hydrogel, Collagen Powder -Other Dressing ABD pad -Primary Dressing Covered/Secured with Dry Gauze & Dry Gauze & Roll Gauze Roll Gauze -Aquacel Extra 1 1 -Wound Comment(s) sebastian Right -Compression Wrap Sebastian Wrap -Other sebastian Treatment Response Procedure Tolerated Well Pain Scale: 0-10 Numeric Is Patient Pain Free? Yes Yes Yes WC - Visit Discharge Discharge Condition Stable Stable Ambulatory Status Ambulatory Ambulatory Transportation Private Auto Private Auto Medication Reconcilliation completed & No No provided to patient/care provider Clinical Summary of Care Provided Yes Yes Facility Type Orders Sent #5 RDorsal/Anterior Ankle -Ulcer Cleansing -Primary Dressing Applied Aquacel Extra, Collagen Powder -Other Dressing hydrogel with powder -Primary Dressing Covered/Secured with Dry Gauze & Roll Gauze, Secured with Tape -Aquacel Extra 1 -Collagen Powder 1 -Hydrogel Right -Compression Wrap Sebastian Wrap Treatment Response 07/20/24 12:34 Wound Care Center Nurse 3 #5 RDorsal/Anterior Ankle -Ulcer Cleansing -Primary Dressing Applied -Other Dressing -Primary Dressing Covered/Secured with -Aquacel Extra -Wound Comment(s) Right -Compression Wrap -Other Treatment Response Pain Scale: 0-10 Numeric Is Patient Pain Free? Yes WC - Visit Discharge Discharge Condition Stable Ambulatory Status Ambulatory Transportation Private Auto Medication Reconcilliation completed & provided to patient/care provider Clinical Summary of Care Provided Facility Type Home Health Orders Sent Yes #5 RDorsal/Anterior Ankle -Ulcer Cleansing Rinsed/ Irrigated with Saline -Primary Dressing Applied Aquacel Extra,C Hydrogel, Collagen Powder -Other Dressing -Primary Dressing Covered/Secured with Dry Gauze & Roll Gauze, Secured with Tape -Aquacel Extra 1 -Collagen Powder 1 -Hydrogel 1 Right -Compression Wrap Sebastian Wrap Treatment Response Procedure Tolerated Well Assessment/Plan Assessment/Plan (1) Non-pressure chronic ulcer of other part of right foot with fat layer exposed: CODE(S): L97.512 - Non-pressure chronic ulcer of other part of right foot with fat layer exposed (2) Charcot's joint of right foot: CODE(S): M14.671 - Charcot's joint, right ankle and foot (3) Type 2 diabetes mellitus with diabetic polyneuropathy: CODE(S): E11.42 - Type 2 diabetes mellitus with diabetic polyneuropathy QUALIFIERS: Diabetes mellitus ferry terminal supervisor insulin use: with prison use Qualified Code(s): E11.42 - Type 2 diabetes mellitus with diabetic polyneuropathy; Z79.4 - marine oil terminal superintendent (current) use of insulin (4) Type 2 diabetes mellitus with foot ulcer: CODE(S): E11.621 - Type 2 diabetes mellitus with foot ulcer; L97.509 - Non-pressure chronic ulcer of other part of unspecified foot with unspecified severity QUALIFIERS: Diabetes mellitus ferry terminal supervisor insulin use: with prison use Qualified Code(s): E11.621 - Type 2 diabetes mellitus with foot ulcer; L97.509 - Non-pressure chronic ulcer of other part of unspecified foot with unspecified severity; Z79.4 - alf (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 DOS 02/10/2024 She is 5 months out of surgery. Cicatrix at incision sites medial foot and anterior leg with no signs of infection. Ulceration dorsal foot continues granulating in well versus her previous visit. She continues healing well at this time and continues HBO dives following tube placement. Ulceration predebridement measures 1.9 cm x 1.6 cm x 0.1 cm Ulceration did undergo debridement as noted on clinical panel above. Postdebridement measurements 2.0 cm x 1.7 cm x 0.1 cm. Has completed all 10 applications of EpiFix #10. Collagen powder moistened with hydrogel applied to the ulcerative bed today. Aquacel Ag and DSD applied. She is to change dressing daily. Ulceration demonstrates slight increase in size vs previous visit, but hypergranulation tissue is well-controlled. Overall healing well and progressing towards healing. She was approved for EpiFix, completed all 10 applications. Has previously completed oral antibiotic doxycycline 100 mg twice daily and Augmentin 875mg daily. Will be permitted to continue protective weightbearing to the right lower extremity in CAM boot. Previously discussed medical clearance for HBO and she has been cleared by Dr. Howard. She will continue HBO dives as this is essential to her healing. She has had previous lab work drawn while in hospital 03/08/2024 [facility] Did have chest x-ray during her hospital stay in January 2024 along with echocardiogram. Did undergo EKG for evaluation prior to dive. HgbA1c during hospital admission was 11.3% on 02/15/2024. Sugars have been well controlled following approval of insulin on new insurance. I do expect her A1c to continue to decrease. PICC removed 03/31/24. Following with ID. The following work up and care recommendations were made: Dressing: Collagen powder moistened with hydrogel, Aquacel Ag, dry sterile dressing right foot. Change daily Wash: Soap and water Tissue growth optimization: Collagen powder and hydrogel Offload: Nonweightbearing to the right lower extremity Vascular: DP and PT pulses palpable with adequate capillary fill time. Vascular status not impacting healing at this time. Edema: Edema well-controlled. Will continue with Tubigrip stocking application Infection: No signs of infection. Currently on IV antibiotics via PICC line. Will continue daptomycin and Unasyn per ID Pain: No pain to the ulcerative site secondary to diabetic peripheral polyneuropathy Host factors: DM type II with peripheral polyneuropathy, uncontrolled. Charcot foot right foot At this time prognosis is good and she continues healing well. Will continue HBO therapy as this is aiding in wound healing. I answered all the patient's questions. To return to the wound healing center in 1 week or call sooner if the patient has any questions or concerns.
[2024-07-21 08:36] LABS: Bedside Glucose 208 mg/dL (74-106)
--- NOTE | 2024-07-21 09:30 | WC ---
PHOTO 07/20/24 RIGHT DORSAL
[2024-07-21 10:50] VITALS: BP 126/65; BP 147/78; PULSE 78; PULSE 79; RESP 14; RESP 15; TEMP 36.1; TEMP 36.4
[2024-07-21 10:54] LABS: Bedside Glucose 137 mg/dL (74-106)
--- NOTE | 2024-07-21 13:26 | HBO.PN.PCM_ITS ---
History of Present Illness Date of Service: 07/21/24 Chief Complaint: Diabetic right foot ulceration History of Wound: Ms. Falk is a 58-year-old currently being seen at the wound center for right foot/ankle ulcer. She is currently undergoing hyperbaric oxygen therapy for the diabetic foot ulceration involving her right foot. She has been under the care of Dr. Jason Lewis, Stars Coordinator, relative to the management of her diabetic foot ulceration. Review of the patient's medical record indicates that she has tolerated HBOT well and there has been corresponding significant improvement in ulcer. 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 Blood glucose readings have been largely stable. No chest pain, tightness, blurry vision or concerns reported. Progress of Wound: Progress: Today's session represents the 54th session. She has been approved for a total of 60 sessions. Tolerance: Hyperbaric oxygen therapy was administered as per the facility's protocol. HBO therapy was administered at 100% oxygen at 2 KELLY for 90 minutes without air breaks. She tolerated hyperbaric oxygen therapy without any complaints or complications. Upon emergence from the chamber, her vitals remained stable. She was discharged in stable condition. Pre and post blood glucose readings as documented. Objective Data Objective Data Vital Signs: Vital Signs Temp Pulse Resp BP O2 Del Method 97.0 F L 78 15 126/65 H Room Air 07/21/24 10:50 07/21/24 10:50 07/21/24 10:50 07/21/24 10:50 07/20/24 11:22 Oxygen Delivery Method Room Air Lab / Micro Data Labs: Laboratory Results - last 24 hr 07/21/24 08:19: POC Glucose 208 H 07/21/24 10:36: POC Glucose 137 H Exam Physical Exam Const alert, oriented x3 and no apparent distress General Appearance: cooperative HEENT normocephalic HEENT Narrative: Bilateral Tympanostomy tubes in place. Eyes General Eye: normal appearance of both eyes Resp normal respiratory effort, no use of accessory muscles and clear to auscultation bilaterally Effort and Inspection: able to speak in complete sentences Cardio regular rate and regular rhythm Palpation: normal PMI Psych mental status grossly normal, thought process normal, cooperative, affect normal and speech normal Nursing Assessment and Debridement Post-Debridement Measurements and Additional Note: Post-Debridement Measurements/Treatment WC - Nurse 1 - General Ulcer Assessment Start: 06/26/24 11:06 Freq: Status: Active Protocol: RUKHSANA Activity Type Activity Date Activity User E-sign Co-sign Detail Recorded Client Recorded Date Recorded By Document 07/20/24 11:22 KW [id number] 07/20/24 11:26 07/20/24 11:22 - Today's Visit Information Type of service Follow-up Visit (Physician/TRACK TEMPLATE MAKER ) Arrival Mode Ambulatory Patient Identification Verified (Name & Yes ) Vital Signs Temperature (97.8 F-99.1 F) 97.6 F L Temperature Source Temporal Pulse Rate (60-100) 80 Pulse Location Monitor Respiratory Rate (12-18) 18 Respiratory rate source Observation Oxygen Delivery Method Room Air Blood Pressure (90/60-120/80) 125/69 H Blood Pressure Mean (mm Hg) 87 Source Monitor Position Semi-Fowlers Blood Pressure Location Left Arm History Since Last Visit- (Skip if this is Patient's initial visit) Have you changed medications since your No last visit? Any new allergies or adverse reactions No Had a fall/change in ADL's that may No increase risk of falls Signs or symptoms of abuse and/or No neglect since last visit Have you been in the hospital since your No last visit? Has dressing in place as prescribed Yes Has compression in place as prescribed Yes Has offloadiing in place as prescribed Yes Experienced any changes in pain level or No management Left Footwear Regular Shoe Right Footwear Regular Shoe Pain Scale: 0-10 Numeric Is Patient Pain Free? Yes - Nurse 1 - General Ulcer Measurement Start: 06/26/24 11:06 Freq: Status: Active Protocol: Activity Type Activity Date Activity User E-sign Co-sign Detail Recorded Client Recorded Date Recorded By Document 07/20/24 11:22 KW [id number] 07/20/24 11:26 KW 07/20/24 11:22 Wound Center Nurse 1 #5 RDorsal/Anterior Ankle -Current Size (cm) - Length 2 -Current Size (cm) - Width 1.5 -Current Size (cm) - Depth 0.1 -Total Square Cm 3.0 -Date of Last Picture (Recall this 07/20/24 field) -Exudate Amt Small -Exudate Type Serosanguineous -Wound Margin Distinct, Outline Attached -Granulation Amt Large (67-100%) -Granulation Quality [place] -Necrosis Amt Small (1-33%) -Necrotic Tissue Type Adherent Slough -Texture (Marie-wound Skin Appearance) Assessed -Moisture (Marie-wound Skin Appearance) Assessed, Maceration -Color (Marie-wound Skin Appearance) Assessed -Temperature (Marie-wound Skin No Abnormality Appearance) (Pt Warm) -Tenderness on Palpation (Marie-wound No Skin Appearance) -Ulcer Cleansing Rinsed/ Irrigated with Saline -Foul Odor after Cleansing No -Anesthetic Used 5% Lidocaine Gel WC - Nurse 2 - General Ulcer CM Notes Start: 06/26/24 11:06 Freq: Status: Active Protocol: Activity Type Activity Date Activity User E-sign Co-sign Detail Recorded Client Recorded Date Recorded By Document 07/20/24 11:38 [facility] [id number] 07/20/24 11:54 [facility] 07/20/24 11:38 Wound Center Nurse 2 -Time 11:38 -Correct Patient Yes -Correct Side, Site, Position Yes -Correct Procedure Yes -Procedure Performed Yes -Type of Procedure Debridement -Clinical Debridement Subcutaneous -Tissue Removed Subcutaneous -Post Debridement (cm) - Length 2 -Post Debridement (cm) - Width 1.7 -Post Debridement (cm) - Depth 0.1 -Total Square (Post) (cm) 3.4 -Area of Debridement (cm) - Length 2 -Area of Debridement (cm) - Width 1.7 -Total Square (Area) (cm) 3.4 -Tunneling No -Undermining/Tunneling No -Circular Undermining No -Wound/Ulcer Outcome Not Healed -Ulcer Cleansing Rinsed/ Irrigated with Saline -Foul Odor after Cleansing No -Bioengineered Tissue No -Bleeding Controlled with Pressure -Treatment Response Procedure Tolerated Well -Debridement - Subq, 1st 20sq cm Yes Pain Scale: 0-10 Numeric Is Patient Pain Free? Yes WC - Nurse 3 - General Ulcer D/C NN Start: 06/26/24 11:06 Freq: Status: Active Protocol: Activity Type Activity Date Activity User E-sign Co-sign Detail Recorded Client Recorded Date Recorded By Document 07/20/24 12:34 DL [id number] 07/20/24 12:36 DL 07/20/24 12:34 Wound Care Center Nurse 3 #5 RDorsal/Anterior Ankle -Ulcer Cleansing Rinsed/ Irrigated with Saline -Foam Supply Charges Aquacel Extra,C Hydrogel, Collagen Powder -Wound Vac Drape 1 -Primary Dressing Covered/Secured with Dry Gauze & Roll Gauze, Secured with Tape -Aquacel Extra 1 -<Query Deleted From Dictionary> 1 Right -Compression Wrap Sebastian Wrap Treatment Response Procedure Tolerated Well Pain Scale: 0-10 Numeric Is Patient Pain Free? Yes WC - Visit Discharge Discharge Condition Stable Ambulatory Status Ambulatory Transportation Private [email or web address] Facility Type Home Health Orders Sent Yes Assessment/Plan Assessment/Plan (1) Type 2 diabetes mellitus with foot ulcer: CODE(S): E11.621 - Type 2 diabetes mellitus with foot ulcer; L97.509 - Non-pressure chronic ulcer of other part of unspecified foot with unspecified severity QUALIFIERS: Diabetes mellitus exterminator insulin use: with exterminator use Qualified Code(s): E11.621 - Type 2 diabetes mellitus with foot ulcer; L97.509 - Non-pressure chronic ulcer of other part of unspecified foot with unspecified severity; Z79.4 - director long term care (current) use of insulin (2) Non-pressure chronic ulcer of other part of right foot with fat layer exposed: CODE(S): L97.512 - Non-pressure chronic ulcer of other part of right foot with fat layer exposed (3) Type 2 diabetes mellitus with diabetic polyneuropathy: CODE(S): E11.42 - Type 2 diabetes mellitus with diabetic polyneuropathy QUALIFIERS: Diabetes mellitus fci insulin use: with fci use Qualified Code(s): E11.42 - Type 2 diabetes mellitus with diabetic polyneuropathy; Z79.4 - custodial (current) use of insulin (4) Charcot's joint of right foot: CODE(S): M14.671 - Charcot's joint, right ankle and foot PLAN: Plan The patient appears to be tolerating hyperbaric oxygen therapy well, which will be continued as per their medical treatment plan.
== END 2024-07-21 23:59 | disposition home or self-care (01) ==
LOC: WC 08:00
PROVIDERS: PCP Family Medicine; Referring Provider Student in an Organized Health Care Education/Training Program; Visit Provider Student in an Organized Health Care Education/Training Program
DX: E11.621 Type 2 diabetes mellitus with foot ulcer (principal); L97.512 Non-pressure chronic 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; E11.42 Type 2 diabetes mellitus with diabetic polyneuropathy; E11.610 Type 2 diabetes mellitus with diabetic neuropathic arthropathy; Z79.4 Long term (current) use of insulin; Z79.890 Hormone replacement therapy; Z79.899 Other long term (current) drug therapy
CPT/HCPCS: 11042; 82962; 99183; G0277

== ENCOUNTER 2024-08-15 09:49 | Outpatient (RCR) | payer MEDICAID, SELFPAY ==
--- NOTE | 2024-08-16 13:06 | HP.OTFCE_ITS ---
Task Lift Floor (Occasional 1-33% of Day): NA Floor (Frequent 34-66% of Day): NA Floor (Constant 67-100% of Day): NA Floor PDL: No Ability Knee (Occasional 1-33% of Day): NA Knee (Frequent 34-66% of Day): NA Knee (Constant 67-100% of Day): NA Knee PDL: No Ability Waist (Occasional 1-33% of Day): 10# Waist (Frequent 34-66% of Day): NA Waist (Constant 67-100% of Day): NA Waist PDL: Sedentary Shoulder (Occasional 1-33% of Day): 10# Shoulder (Frequent 34-66% of Day): NA Shoulder (Constant 67-100% of Day): NA Shoulder PDL: Sedentary Overhead (Occasional 1-33% of Day): 10# Overhead (Frequent 34-66% of Day): NA Overhead (Constant 67-100% of Day): NA Overhead PDL: Sedentary Comments: Physical demand level sedentary and completed while sitting due to poor balance without support. Work Activity/Posture Bending: Occasional Ability (1-33% of day) Comments: with external support Squatting: Occasional Ability (1-33% of day) Comments: with external support Kneeling: No Ablility (0% of day) Reaching out: Frequent Ability (34-66% of day) Comments: while sitting Reaching up: Frequent Ability (34-66% of day) Comments: while sitting Sitting: Frequent Ability (34-66% of day) Walking: Occasional Ability (1-33% of day) Comments: with wheeled walker Standing: Occasional Ability (1-33% of day) Comments: with external support for weight shift Reference Reference: Duration Sedentary Sedentary Light Light Light Medium Medium Medium Heavy Very Heavy Heavy Occasional (0-33% of day) Frequent (34-66% of day) Constant (67-100% of day) 10 # Negligible Negligible 15 # 8 # Negligible 20 # 10# Negli. 35 # 18 # 7 # 50 # 25 # 10 # 75 # 100 # >100 # 38 # 50 # >50 # 15 # 20 # >20 # Patient Information Height: 1.73 m Weight:: 85.729 kg Hand Dominance: right Medical History Medical History Including Restrictions: pt states she was 32 years old when she had her first back sx due to DDD. (laminectomy) L4-L5 three years later she had 2nd back sx. ( laminectomy) L3-L4 pt states about 10 years after that she suffered a fall - pt states she had another sx for laminectomy and removed arthritis - had palak on dura after week returned home- 30 days later returned to surgeon with meningitis 30 days later returned to surgeon for further sx as spinal cord was open ( sealed with super glue) pt states she was in hospital for 9 days and went to out-patient physical therapy and was able to walk and perform tasks. states November 05 2020, she stepped in hole and broke her foot. pt states she underwent sx in Apr, for septic infection. and May 2021 with meningitis and had another sx on her right foot- pt states [facility] and underwent out patient therapy following. pt states she has not been able to get her wound healed and had been in a boot to support her ankle. pt states she ended up getting septic wound infection 2023. since then she has been going through antibiotics ( currently on 3 different ones) pt states she has been working with wound center with her to get her right foot healed. pt states she will do bed exercises 2 x a day the physical therapist showered her. pt states she does see Dr. Joshua for pain mtg. states she started to see him 2023. pt states remote hx of tendon rupture of left foot/ankle with need of AFO for left LE due to foot drop if she does not wear. pt states her Waterproof Bag Sewer has told her to avoid being up on her feet as much as possible. pt states last she was at her high tension tester he indicated bone was still fx. Diagnoses Diagnoses: Complex regional pain syndrome type 1 of lower extremity DMII ( mtg. insulin and diet ) Foot ulcer Fibromyalgia spinal stenosis lumbar region without neurogenic claudication neuropathy in bilateral LE charcot's joint of right foot hand tremors non healing bone right foot left foot extensor tendon tear ( remote hx 20yers or more) Symptoms Symptoms: back pain nerve pain head aches hand tremors (has had for years) decrease ambulation back spasms generalized weakness right LE swelling neuropathy BLE open wound right foot Pain Pain: pt states sitting with pain 7/10 ( pt states she took ibuprofen takes as need. states typically only brings pain down to 5/10. has [place] but does not take when she has to drive. During assessment pain increased in back from 7/10 to 9/10. heart rate ranged for 64 to 115 Work History Work History: Pt states she was working at [employer] 2021 and last day there was feb 02, 2024. 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 pt states she was unable to perform her job duties due to her restrictions following sx. pt was unable to keep this job. 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 she was unable to cont. with this position. 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 pt states she was unalbe to perform her job duties and put her notification in. Behavioral Behavioral: pt cooperative throughout assessment- ADLS ADLS: pt states she lives alone 1 story ranch home with basement has 3 entry steps ( no railing). Laundry is in basement pt states 19 steps with one hand rail pt states she sits to go down the stairs- pt states family has been help with laundry (taking it down and up the stairs) Pt states tub shower combination and she uses a shower chair- has grab bars in the shower with long handle shower head. pt states her daughter helps with dressing and putting her boot on/off. pt states her daughter and a friend are helping her with cleaning, cooking. pt states she is unable to stand long enough to perform those tasks. pt states she ambulates with WW, states she has a cane and walking stink ( in her car) pt arrives with ww to this facility, pt states in her home she furniture walks. pt states she uses the WW to help her get in and out of her bed and then will ambulate without device and has her walking boot on. pt states she drives own her on. pt states she does have a wheelchair as needed for distance. pt also has a knee scooter but does not use it much. ( states she crashes into things more than it is helpful) Physical Examination Physical Examination: pt demo with open wound on right medial side of foot- 1cmx 1.3 cm ( will need debrided again next visit to [facility]) ROM: pt demo with limited left ankle ROM ( due to remote hx of tendon rupture with no ability to repair- pt ambulates with AFO left LE) pt ambulators with walking boot on right LE all other ROM is WFL Strength: Fet2 peak force testing shoulder flexion right 19# left 17# shoulder extension right 27.5# left 21# Biceps right 25# left 21# triceps right 23# left 23# Hip flexion right 25# left 26# Hamstrings right 14# left 32# Quadriceps right 15# left 19# Right Agronomy Research Manager Strength Average: 53.33 Right Agronomy Research Manager Strength Percentile: 12% Left Agronomy Research Manager Strength Average: 61.66 Left Agronomy Research Manager Strength Percentile: 53% Right Lateral Pinch Average: 14.00 Right Lateral Pinch Percentile: 75% Left Lateral Pinch Average: 12.66 Left Lateral Pinch Percentile: 10% Right Tripod Pinch Average: 10.00 Right Tripod Pinch Percentile: 25% Left Tripod Pinch Average: 10.00 Left Tripod Pinch Percentile: 50% Sensation: pt states she has no feeling in all the tips of fingers. pt states she has had difficulty for years - semmes-wenstein monofilament testing thumb right 3.61 interpretation diminished light touch left 3.22 diminished light touch IF right 4.17 diminished protective sensation left 3.22 Diminished light touch MF right 3.61 diminished light touch left 3.22 diminished light touch RF right 3.22 left 3.61 interpretation diminished light touch LF right 4.17 left 3.84 interpretation diminished protective senesation Fine Motor: 9 hole peg test right 26.50 sec. 10% for age left 25.37 sec. 25% for age noted bilateral resting hand tremor Balance: pt demo with poor dynamic standing balance. need of support due to decrease sensation and limited ability to put weight on right LE. Non Material Handling Activities Bending: pt demo the ability 3/3x with external support Squatting: pt demo 3/3x squating with use of external support Kneeling: unable Reaching out/up: pt demo the to reach up/out 3/3x, 10/10x, and 10/10x rapidly pain reported in back 9 this is increase from 7/10 pt can reach up/out on frequent ability. Walking: pt states she ambulates with WW 600 feet with slow pace. pt can ambulate with wheeled walker on occasional ability. Standing: pt demo standing with keep weight of right for 4 min. pt can stand on occasional ability Sitting: pt demo the ability to sit shifting body weight for 60 min- pt can sit on frequent basis. Climbing Stairs: due to pts increase in back pain 9/ pt declined climbing stairs this day. pt states on good days as long as she has a hand rail she can mtg, her stairs taking her time to get to her basement. Dynamic Occasional Lifting Capacity Floor Lift: unable Knee Lift: unable Waist Lift: while sitting lifted 10# from this level. Shoulder Lift: while sitting lifted 10# from this level. Overhead Lift: while sitting lifted 10# from this level. Carrying: pt ambulates with WW for balance- pt unable to carry wts while ambulating with wheeled walker. Comments: heart rate ranged 64-115 throughout session.
--- NOTE | 2024-08-16 13:06 | HP.OTFCE.D ---
FCE D/C Summary Discharge text: FREEMAN MOCTEZUMA was seen for a one time visit for an FCE on 08/15/24 and is discharged.
== END 2024-08-15 19:00 | disposition home or self-care (01) ==
LOC: OT 09:49
PROVIDERS: PCP Family Medicine; Referring Provider Family Medicine; Visit Provider Family Medicine
DX: G90.529 Complex regional pain syndrome I of unspecified lower limb (principal); E11.8 Type 2 diabetes mellitus with unspecified complications; Z87.2 Personal history of diseases of the skin and subcutaneous tissue; M79.7 Fibromyalgia; M48.061 Spinal stenosis, lumbar region without neurogenic claudication
CPT/HCPCS: 97750

== ENCOUNTER 2024-08-17 08:30 | Outpatient (RCR) | payer MEDICAID, SELFPAY ==
[2024-07-22 02:30] VITALS: BP 125/69; BP 126/65; BP 147/78; PULSE 78; PULSE 79; PULSE 80; RESP 14; RESP 15; RESP 18; TEMP 36.1; TEMP 36.4
[2024-07-24 08:33] LABS: Bedside Glucose 157 mg/dL (74-106)
[2024-07-24 08:54] VITALS: BP 113/68; BP 133/78; PULSE 63; PULSE 73; RESP 15; TEMP 35.8; TEMP 36.1
--- NOTE | 2024-07-24 09:00 | PCM.HBO.PN ---
History of Present Illness Date of Service: 07/24/24 Chief Complaint: Diabetic right foot ulceration History of Wound: Ms. Falk is a 58-year-old currently being seen at the wound center for right foot/ankle ulcer. She is currently undergoing hyperbaric oxygen therapy for the diabetic foot ulceration involving her right foot. She has been under the care of Dr. Jason Lewis, Loin Puller, relative to the management of her diabetic foot ulceration. Review of the patient's medical record indicates that she has tolerated HBOT well and there has been corresponding significant improvement in ulcer. 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 Blood glucose readings have been largely stable. No chest pain, tightness, blurry vision or concerns reported. Subjective Subjective Doing well. 55th treatment today. No complaints Objective Data Objective Data Vital Signs: Vital Signs Temp Pulse Resp BP 96.5 F L 73 15 133/78 H 07/24/24 08:54 07/24/24 08:54 07/24/24 08:54 07/24/24 08:54 Lab / Micro Data Labs: Laboratory Results - last 24 hr 07/24/24 08:16: POC Glucose 157 H Exam Physical Exam Const alert, oriented x3 and no apparent distress General Appearance: cooperative HEENT normocephalic HEENT Narrative: Bilateral Tympanostomy tubes in place. Eyes General Eye: normal appearance of both eyes Resp normal respiratory effort and no use of accessory muscles Effort and Inspection: able to speak in complete sentences Cardio regular rate Palpation: normal PMI Psych mental status grossly normal, thought process normal, cooperative, affect normal and speech normal Charges/Coding Wound Center CF Procedures HBO Supervision: [id number] Hyperbaric Oxygen; supervision Assessment/Plan Assessment/Plan (1) Type 2 diabetes mellitus with foot ulcer: CODE(S): E11.621 - Type 2 diabetes mellitus with foot ulcer; L97.509 - Non-pressure chronic ulcer of other part of unspecified foot with unspecified severity QUALIFIERS: Diabetes mellitus senior living insulin use: with senior living use Qualified Code(s): E11.621 - Type 2 diabetes mellitus with foot ulcer; L97.509 - Non-pressure chronic ulcer of other part of unspecified foot with unspecified severity; Z79.4 - termite treater helper (current) use of insulin (2) Non-pressure chronic ulcer of other part of right foot with fat layer exposed: CODE(S): L97.512 - Non-pressure chronic 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
[2024-07-24 10:41] LABS: Bedside Glucose 124 mg/dL (74-106)
[2024-07-25 08:48] LABS: Bedside Glucose 179 mg/dL (74-106)
--- NOTE | 2024-07-25 10:37 | PCM.HBO.PN ---
History of Present Illness Date of Service: 07/25/24 Chief Complaint: Diabetic right foot ulceration History of Wound: Ms. Falk is a 58-year-old currently being seen at the wound center for right foot/ankle ulcer. She is currently undergoing hyperbaric oxygen therapy for the diabetic foot ulceration involving her right foot. She has been under the care of Dr. Jason Lewis, Windows Systems Architect, relative to the management of her diabetic foot ulceration. Review of the patient's medical record indicates that she has tolerated HBOT well and there has been corresponding significant improvement in ulcer. 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 Blood glucose readings have been largely stable. No chest pain, tightness, blurry vision or concerns reported. Progress of Wound: Progress: Today's session represents the 56th session. She has been approved for a total of 60 sessions. Tolerance: Hyperbaric oxygen therapy was administered as per the facility's protocol. HBO therapy was administered at 100% oxygen at 2 KELLY for 90 minutes without air breaks. She tolerated hyperbaric oxygen therapy without any complaints or complications. Upon emergence from the chamber, her vitals remained stable. She was discharged in stable condition. Pre and post blood glucose readings as documented. Objective Data Objective Data Vital Signs: Vital Signs Temp Pulse Resp BP 96.5 F L 73 15 133/78 H 07/24/24 08:54 07/24/24 08:54 07/24/24 08:54 07/24/24 08:54 Lab / Micro Data Labs: Laboratory Results - last 24 hr 07/24/24 10:22: POC Glucose 124 H 07/25/24 08:30: POC Glucose 179 H Exam Physical Exam Const alert, oriented x3 and no apparent distress General Appearance: cooperative HEENT normocephalic HEENT Narrative: Bilateral Tympanostomy tubes in place. Eyes General Eye: normal appearance of both eyes Resp normal respiratory effort, no use of accessory muscles and clear to auscultation bilaterally Effort and Inspection: able to speak in complete sentences Cardio regular rate and regular rhythm Palpation: normal PMI Psych mental status grossly normal, thought process normal, cooperative, affect normal and speech normal Charges/Coding Wound Center CF Procedures HBO Supervision: [id number] Hyperbaric Oxygen; supervision Assessment/Plan Assessment/Plan (1) Type 2 diabetes mellitus with foot ulcer: CODE(S): E11.621 - Type 2 diabetes mellitus with foot ulcer; L97.509 - Non-pressure chronic ulcer of other part of unspecified foot with unspecified severity QUALIFIERS: Diabetes mellitus terminologist insulin use: with terminologist use Qualified Code(s): E11.621 - Type 2 diabetes mellitus with foot ulcer; L97.509 - Non-pressure chronic ulcer of other part of unspecified foot with unspecified severity; Z79.4 - terminal press operator (current) use of insulin (2) Non-pressure chronic ulcer of other part of right foot with fat layer exposed: CODE(S): L97.512 - Non-pressure chronic ulcer of other part of right foot with fat layer exposed (3) Type 2 diabetes mellitus with diabetic polyneuropathy: CODE(S): E11.42 - Type 2 diabetes mellitus with diabetic polyneuropathy QUALIFIERS: Diabetes mellitus intermediate insulin use: with intermediate use Qualified Code(s): E11.42 - Type 2 diabetes mellitus with diabetic polyneuropathy; Z79.4 - intermediate (current) use of insulin (4) Charcot's joint of right foot: CODE(S): M14.671 - Charcot's joint, right ankle and foot PLAN: Plan The patient appears to be tolerating hyperbaric oxygen therapy well, which will be continued as per their medical treatment plan.
[2024-07-25 11:15] VITALS: BP 104/68; BP 115/72; PULSE 55; PULSE 76; RESP 16; RESP 18; TEMP 35.6; TEMP 36.3
[2024-07-25 11:31] LABS: Bedside Glucose 103 mg/dL (74-106)
[2024-07-26 08:55] VITALS: BP 107/76; BP 117/67; PULSE 75; PULSE 88; RESP 16; TEMP 35.1; TEMP 36.6
[2024-07-26 09:02] LABS: Bedside Glucose 210 mg/dL (74-106)
[2024-07-26 10:57] LABS: Bedside Glucose 113 mg/dL (74-106)
[2024-07-27 08:36] LABS: Bedside Glucose 158 mg/dL (74-106)
[2024-07-27 09:55] VITALS: BP 118/60; BP 121/65; PULSE 73; PULSE 85; RESP 15; RESP 17; TEMP 35.7; TEMP 36
--- NOTE | 2024-07-27 09:57 | PCM.HBO.PN ---
History of Present Illness Date of Service: 07/27/24 Chief Complaint: Diabetic right foot ulceration History of Wound: Ms. Falk is a 58-year-old currently being seen at the wound center for right foot/ankle ulcer. She is currently undergoing hyperbaric oxygen therapy for the diabetic foot ulceration involving her right foot. She has been under the care of Dr. Jason Lewis, Passenger Booking Clerk, relative to the management of her diabetic foot ulceration. Review of the patient's medical record indicates that she has tolerated HBOT well and there has been corresponding significant improvement in ulcer. 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 Blood glucose readings have been largely stable. No chest pain, tightness, blurry vision or concerns reported. Progress of Wound: Progress: Today's session represents the 58th of 60 approved sessions. Tolerance: Hyperbaric oxygen therapy was administered as per the facility's protocol. HBO therapy was administered at 100% oxygen at 2 KELLY for 90 minutes without air breaks. She tolerated hyperbaric oxygen therapy without complications or complaints. Upon emergence from the chamber, her vitals remained stable. She was discharged in stable condition. Pre and post blood glucose readings as documented. Objective Data Objective Data Vital Signs: Vital Signs Temp Pulse Resp BP 95.1 F L 88 16 107/76 07/26/24 08:55 07/26/24 08:55 07/26/24 08:55 07/26/24 08:55 Lab / Micro Data Labs: Laboratory Results - last 24 hr 07/26/24 10:39: POC Glucose 113 H 07/27/24 08:18: POC Glucose 158 H Exam Physical Exam Const alert, oriented x3 and no apparent distress General Appearance: cooperative, comfortable and well kempt HEENT normocephalic, head/scalp atraumatic and hearing grossly normal bilaterally Tympanic Membrane: other Other Details: Bilateral tympanostomy tubes in place. Eyes EOMs intact bilaterally Neck full ROM General: normal visual inspection Resp normal respiratory effort Effort and Inspection: able to speak in complete sentences Neuro oriented x3 and CN's II-XII intact bilaterally Psych mental status grossly normal, thought process normal, cooperative and affect normal Nursing Assessment and Debridement Post-Debridement Measurements and Additional Note: Post-Debridement Measurements/Treatment WC - Nurse 3 - General Ulcer D/C NN Start: 07/24/24 08:54 Freq: Status: Active Protocol: Activity Type Activity Date Activity User E-sign Co-sign Detail Recorded Client Recorded Date Recorded By Document 07/25/24 11:15 NATY [id number] 07/25/24 11:18 NATY 07/25/24 11:15 Pain Scale: 0-10 Numeric Is Patient Pain Free? Yes WC - Visit Discharge Discharge Condition Stable Ambulatory Status Ambulatory Transportation Private Auto Charges/Coding Wound Center CF Procedures HBO Supervision: [id number] Hyperbaric Oxygen; supervision Assessment/Plan Assessment/Plan (1) Type 2 diabetes mellitus with foot ulcer: CODE(S): E11.621 - Type 2 diabetes mellitus with foot ulcer; L97.509 - Non-pressure chronic ulcer of other part of unspecified foot with unspecified severity QUALIFIERS: Diabetes mellitus snf insulin use: with lobsterman use Qualified Code(s): E11.621 - Type 2 diabetes mellitus with foot ulcer; L97.509 - Non-pressure chronic ulcer of other part of unspecified foot with unspecified severity; Z79.4 - regional intermodal truck driver (current) use of insulin (2) Non-pressure chronic ulcer of other part of right foot with fat layer exposed: CODE(S): L97.512 - Non-pressure chronic ulcer of other part of right foot with fat layer exposed (3) Type 2 diabetes mellitus with diabetic polyneuropathy: CODE(S): E11.42 - Type 2 diabetes mellitus with diabetic polyneuropathy QUALIFIERS: Diabetes mellitus snf insulin use: with lobsterman use Qualified Code(s): E11.42 - Type 2 diabetes mellitus with diabetic polyneuropathy; Z79.4 - longterm (current) use of insulin (4) Charcot's joint of right foot: CODE(S): M14.671 - Charcot's joint, right ankle and foot PLAN: Plan The patient appears to be tolerating hyperbaric oxygen therapy well, which will be continued as per her medical treatment plan. This note was generated with Quick TVation software. It may contain incorrect words, spelling, and punctuation that were not noted in checking the note before signing.
[2024-07-27 10:57] LABS: Bedside Glucose 124 mg/dL (74-106)
[2024-07-27 11:09] VITALS: BP 118/60; PULSE 73; RESP 15; TEMP 36
--- NOTE | 2024-07-27 13:53 | PCM.WC.PN ---
History of Present Illness Date of Service: 07/27/24 Chief Complaint: Diabetic right foot ulceration History of Wound: Ms. Falk is a 58-year-old currently being seen at the wound center for right foot/ankle ulcer. She is currently undergoing hyperbaric oxygen therapy for the diabetic foot ulceration involving her right foot. She has been under the care of Dr. Jason Lewis, Premium Note Interest Calculator Clerk, relative to the management of her diabetic foot ulceration. Review of the patient's medical record indicates that she has tolerated HBOT well and there has been corresponding significant improvement in ulcer. 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 Blood glucose readings have been largely stable. No chest pain, tightness, blurry vision or concerns reported. Progress of Wound: Progress: Today's session represents the 58th of 60 approved sessions. Tolerance: Hyperbaric oxygen therapy was administered as per the facility's protocol. HBO therapy was administered at 100% oxygen at 2 KELLY for 90 minutes without air breaks. She tolerated hyperbaric oxygen therapy without complications or complaints. Upon emergence from the chamber, her vitals remained stable. She was discharged in stable condition. Pre and post blood glucose readings as documented. Subjective Subjective This is a 58-year-old female who continues to follow with the wound care center for right dorsal foot ulceration. She had previously undergone I&D on 02/10/2024 of the right foot. Continues healing and is changing dressing daily. Continues HBO dives following tube placement in ears and is doing well. Ulcer site continues improvement with HBO therapy. She feels ulceration is improving and looking better each week. States that her foot does feel little warm today and she may have new pressure site underlying the plantar foot. Denies constitutional symptoms. Denies further complaints. Objective Data Objective Data Vital Signs: Vital Signs Temp Pulse Resp BP 96.8 F L 73 15 118/60 07/27/24 11:09 07/27/24 11:09 07/27/24 11:09 07/27/24 11:09 Lab / Micro Data Labs: Laboratory Results - last 24 hr 07/27/24 08:18: POC Glucose 158 H 07/27/24 10:38: POC Glucose 124 H Physical Exam Const alert, oriented x3 and no apparent distress General Appearance: cooperative HEENT normocephalic Eyes General Eye: normal appearance of both eyes Neck General: normal visual inspection Lymph Lymphatic: no lymphadenopathy noted and no lymphedema noted Resp normal respiratory effort Cardio regular rate and regular rhythm Extremity no calf tenderness Extremity Narrative: Right lower extremity: Vascular: DP and PT pulses palpable with adequate capillary fill time to the digits. Normal temperature gradient. Hair growth is absent to the digits. Neurologic: Gross sensation intact. Absent protective sensation consistent with diabetic peripheral polyneuropathy Musculoskeletal: No pain to palpation about the ulcerative site secondary to diabetic peripheral polyneuropathy. There is a Charcot foot deformity noted of the right foot. No pain to palpation about the ulcerative site. Dermatologic: Incision site medial foot healed with cicatrix. No signs of infection. Incision site anterior leg with cicatrix proximally and distally. No signs of infection. There is a full thickness ulceration dorsally along the midfoot medial to the incision site with healthy granular tissue and some hypergranular tissue. Ulceration continues improvement with reduction in size and is progressing well. Ulceration site demonstrates no signs of infection. Plantar foot demonstrates some ecchymosis with some fluctuance that was explored via needle aspiration with only hematoma expressible. Skin no rashes or lesions noted Neuro moves all extremities Debridement Note Debridement Note Wound debrided: Right foot Laterality: Right Wound Grade/Stage: Gonzalez stage III Type of Debridement: Excisional debridement Anesthesia Used: 5% Lidocaine Gel Depth: Down to and including healthy tissue and in the subcutaneous layer Percentage of wound debrided: 100 Instrument Used: #15 blade and Forceps Tissue Removed: Fibrous, devitalized subcutaneous, biofilm, slough Severity: Fat Layer Exposed Amount of bleeding with debridement: Mild Bleeding Controlled with: Compression and gauze Patient tolerated procedure: Patient tolerated procedure well Post-Debridement Measurements and Additional Note: Post-Debridement Measurements/Treatment - Nurse 1 - General Ulcer Assessment Start: 07/24/24 08:54 Freq: Status: Active Protocol: RUKHSANA Activity Type Activity Date Activity User E-sign Co-sign Detail Recorded Client Recorded Date Recorded By Document 07/27/24 11:09 JENIFFER [id number] 07/27/24 11:15 DL 07/27/24 11:09 - Today's Visit Information Type of service Follow-up Visit (Physician/SUPERVISOR ELECTRIC ) Arrival Mode Ambulatory Transfer Assistance Transfer Board Patient Identification Verified (Name & Yes ) Patient Requires Transmission-Based No Precautions Finger Stick Blood Sugar(mg/dl) (if 124 indicated): Blood Sugar Done During this Visit Vital Signs Temperature (97.8 F-99.1 F) 96.8 F L Temperature Source Temporal Pulse Rate (60-100) 73 Pulse Location Monitor Respiratory Rate (12-18) 15 Respiratory rate source Observation Blood Pressure (90/60-120/80) 118/60 Blood Pressure Mean (mm Hg) 79 Source Monitor History Since Last Visit- (Skip if this is Patient's initial visit) Have you changed medications since your No last visit? Any new allergies or adverse reactions No Had a fall/change in ADL's that may No increase risk of falls Signs or symptoms of abuse and/or No neglect since last visit Have you been in the hospital since your No last visit? Has dressing in place as prescribed Yes Has compression in place as prescribed Yes Has offloadiing in place as prescribed N/A Experienced any changes in pain level or No management Pain Scale: 0-10 Numeric Is Patient Pain Free? Yes WC - Nurse 1 - General Ulcer Measurement Start: 07/24/24 08:54 Freq: Status: Active Protocol: Activity Type Activity Date Activity User E-sign Co-sign Detail Recorded Client Recorded Date Recorded By Document 07/27/24 11:09 DL [id number] 07/27/24 11:15 DL 07/27/24 11:09 Wound Center Nurse 1 #5 RDorsal/Anterior Ankle -Current Size (cm) - Length 1.8 -Current Size (cm) - Width 1.1 -Current Size (cm) - Depth 0.1 -Total Square Cm 1.98 -Photo Taken Yes -Exudate Amt Medium -Exudate Type Serosanguineous -Wound Margin Distinct, Outline Attached -Granulation Amt Small (1-33%) -Granulation Quality [place] -Necrosis Amt Large (67-100%) -Necrotic Tissue Type Adherent Slough -Structure Exposed N/A -Texture (Marie-wound Skin Appearance) Localized Edema ,Scarring -Moisture (Marie-wound Skin Appearance) Maceration -Color (Marie-wound Skin Appearance) No Abnormality -Temperature (Marie-wound Skin No Abnormality Appearance) (Pt Warm) -Ulcer Cleansing Soap and Water -Foul Odor after Cleansing No -Anesthetic Used 5% Lidocaine Gel Right Calf (cm) 35.5 Right Ankle (cm) 21.4 WC - Nurse 2 - General Ulcer CM Notes Start: 07/24/24 08:54 Freq: Status: Active Protocol: Activity Type Activity Date Activity User E-sign Co-sign Detail Recorded Client Recorded Date Recorded By Document 07/27/24 11:40 [facility] [id number] 07/27/24 12:26 [facility] 07/27/24 11:40 Wound Center Nurse 2 #7- R PLANTAR FOOT -Time 11:49 -Wound/Ulcer Outcome Not Healed -Ulcer Cleansing Rinsed/ Irrigated with Saline -Foul Odor after Cleansing No -Bleeding Controlled with Pressure -Treatment Response Procedure Tolerated Well -Wound Comment(s) HEMATOMA DRAINED #5 RDorsal/Anterior Ankle -Time 11:45 -Correct Patient Yes -Correct Side, Site, Position Yes -Correct Procedure Yes -Procedure Performed Yes -Type of Procedure Debridement -Clinical Debridement Subcutaneous -Tissue Removed Subcutaneous -Post Debridement (cm) - Length 1.7 -Post Debridement (cm) - Width 1.4 -Post Debridement (cm) - Depth 0.1 -Total Square (Post) (cm) 2.38 -Area of Debridement (cm) - Length 1.7 -Area of Debridement (cm) - Width 1.4 -Total Square (Area) (cm) 2.38 -Tunneling No -Undermining/Tunneling No -Circular Undermining No -Wound/Ulcer Outcome Not Healed -Ulcer Cleansing Rinsed/ Irrigated with Saline -Foul Odor after Cleansing No -Bioengineered Tissue No -Bleeding Controlled with Pressure,Silver Nitrate -Treatment Response Procedure Tolerated Well -Debridement - Subq, 1st 20sq cm Yes Pain Scale: 0-10 Numeric Is Patient Pain Free? Yes - Nurse 3 - General Ulcer D/C NN Start: 07/24/24 08:54 Freq: Status: Active Protocol: Activity Type Activity Date Activity User E-sign Co-sign Detail Recorded Client Recorded Date Recorded By Document 07/25/24 11:15 [id number] 07/25/24 11:18 Document 07/27/24 12:44 CP [id number] 07/27/24 12:45 CP 07/25/24 07/27/24 11:15 12:44 Wound Care Center Nurse 3 #7- R PLANTAR FOOT -Other Dressing ABD -Primary Dressing Covered/Secured with Dry Gauze & Roll Gauze, Secured with Tape -Wound Comment(s) ARMANDO #5 RDorsal/Anterior Ankle -Primary Dressing Applied Aquacel Extra, Collagen Powder -Other Dressing HYDROGEL/ABD -Primary Dressing Covered/Secured with Dry Gauze & Roll Gauze, Secured with Tape -Aquacel Extra 1 -Collagen Powder 1 Pain Scale: 0-10 Numeric Is Patient Pain Free? Yes Yes WC - Visit Discharge Discharge Condition Stable Stable Ambulatory Status Ambulatory Ambulatory Transportation Private Auto Private Auto Medication Reconcilliation completed & No provided to patient/care provider Clinical Summary of Care Provided Yes Assessment/Plan Assessment/Plan (1) Non-pressure chronic ulcer of other part of right foot with fat layer exposed: CODE(S): L97.512 - Non-pressure chronic ulcer of other part of right foot with fat layer exposed (2) Type 2 diabetes mellitus with diabetic polyneuropathy: CODE(S): E11.42 - Type 2 diabetes mellitus with diabetic polyneuropathy QUALIFIERS: Diabetes mellitus skilled nursing insulin use: with computer terminal operator use Qualified Code(s): E11.42 - Type 2 diabetes mellitus with diabetic polyneuropathy; Z79.4 - marine oil terminal superintendent (current) use of insulin (3) Charcot's joint of right foot: CODE(S): M14.671 - Charcot's joint, right ankle and foot (4) Type 2 diabetes mellitus with foot ulcer: CODE(S): E11.621 - Type 2 diabetes mellitus with foot ulcer; L97.509 - Non-pressure chronic ulcer of other part of unspecified foot with unspecified severity QUALIFIERS: Diabetes mellitus computer terminal operator insulin use: with computer terminal operator use Qualified Code(s): E11.621 - Type 2 diabetes mellitus with foot ulcer; L97.509 - Non-pressure chronic ulcer of other part of unspecified foot with unspecified severity; Z79.4 - correction (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 DOS 02/10/2024 She is 5 months out of surgery. Cicatrix at incision sites medial foot and anterior leg with no signs of infection. Ulceration dorsal foot continues granulating in well versus her previous visit. She continues healing well at this time and continues HBO dives following tube placement. Ulceration predebridement measures 1.6 cm x 1.3 cm x 0.1 cm Ulceration did undergo debridement as noted on clinical panel above. Postdebridement measurements 1.7 cm x 1.4 cm x 0.1 cm. Has completed all 10 applications of EpiFix #10. Collagen powder moistened with hydrogel applied to the ulcerative bed today. Aquacel Ag and DSD applied. She is to change dressing daily. Chemical cauterization (11636) was performed today to hypergranulation tissue. Her new area of previous ulceration to the plantar foot with subdermal hemorrhaging is noted. This was explored via needle aspiration and small incision for a #15 blade to express hematoma. No purulent drainage was expressible. Site was stitched closed with a single 2-0 Prolene stitch. Discussed with her that I feel she is started to entering new acute Charcot event most likely when she removed her boot to stand barefoot in the shower. Discussed reapplying the cam boot and continuing to stay off of her foot is much as possible over the next 4 weeks until consolidation can begin to occur. She is understanding of this. Ulceration demonstrates slight increase in size vs previous visit, but hypergranulation tissue is well-controlled. Overall healing well and progressing towards healing. She was approved for EpiFix, completed all 10 applications. Due to her acute Charcot event placing her at increased risk for infection she was started on oral antibiotic. Rx doxycycline 100 mg twice daily x 14 days, levofloxacin 750 mg p.o. daily x 14 days, Diflucan 150 mg tablet every 72 hours x 3 doses as she does get candidiasis when taking oral antibiotic. ABX stop date 08/10/2024 Will be permitted to continue protective weightbearing to the right lower extremity in CAM boot. Previously discussed medical clearance for HBO and she has been cleared by Dr. Howard. She will continue HBO dives as this is essential to her healing. She has had previous lab work drawn while in hospital 03/08/2024 [facility]. Did have chest x-ray during her hospital stay in January 2024 along with echocardiogram. Did undergo EKG for evaluation prior to dive. HgbA1c during hospital admission was 11.3% on 02/15/2024. Sugars have been well controlled following approval of insulin on new insurance. I do expect her A1c to continue to decrease. PICC removed 03/31/24. Following with ID. The following work up and care recommendations were made: Dressing: Collagen powder moistened with hydrogel, Aquacel Ag, dry sterile dressing right foot. Change daily Wash: Soap and water Tissue growth optimization: Collagen powder and hydrogel Offload: Nonweightbearing to the right lower extremity Vascular: DP and PT pulses palpable with adequate capillary fill time. Vascular status not impacting healing at this time. Edema: Edema well-controlled. Will continue with Tubigrip stocking application Infection: No signs of infection. Currently on IV antibiotics via PICC line. Will continue daptomycin and Unasyn per ID Pain: No pain to the ulcerative site secondary to diabetic peripheral polyneuropathy Host factors: DM type II with peripheral polyneuropathy, uncontrolled. Charcot foot right foot At this time prognosis is good and she continues healing well. Will continue HBO therapy as this is aiding in wound healing. I answered all the patient's questions. To return to the wound healing center in 1 week or call sooner if the patient has any questions or concerns.
[2024-07-28 08:31] LABS: Bedside Glucose 212 mg/dL (74-106)
--- NOTE | 2024-07-28 10:00 | WC ---
PHOTO 07/27/24 RIGHT DORSAL
--- NOTE | 2024-07-28 10:02 | WC ---
PHOTO 07/27/24 RIGHT PLANTAR
--- NOTE | 2024-07-28 10:03 | WC ---
PHOTO 07/27/24 RIGHT PLANTAR
[2024-07-28 10:44] LABS: Bedside Glucose 129 mg/dL (74-106)
[2024-07-28 11:14] VITALS: BP 121/71; BP 158/81; PULSE 89; PULSE 90; RESP 14; RESP 16; TEMP 36.5; TEMP 36.6
--- NOTE | 2024-07-28 15:14 | HBO.PN.PCM_ITS ---
History of Present Illness Date of Service: 07/28/24 Chief Complaint: Diabetic right foot ulceration History of Wound: Ms. Falk is a 58-year-old currently being seen at the wound center for right foot/ankle ulcer. She is currently undergoing hyperbaric oxygen therapy for the diabetic foot ulceration involving her right foot. She has been under the care of Dr. Jason Lewis, Stripper Preliminary, relative to the management of her diabetic foot ulceration. Review of the patient's medical record indicates that she has tolerated HBOT well and there has been corresponding significant improvement in ulcer. 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 Blood glucose readings have been largely stable. No chest pain, tightness, blurry vision or concerns reported. Progress of Wound: Progress: Today's session represents the 59th of 60 approved sessions. Tolerance: Hyperbaric oxygen therapy was administered as per the facility's protocol. HBO therapy was administered at 100% oxygen at 2 KELLY for 90 minutes without air breaks. She tolerated hyperbaric oxygen therapy without complications or complaints. Upon emergence from the chamber, her vitals remained stable. She was discharged in stable condition. Pre and post blood glucose readings as documented. Objective Data Objective Data Vital Signs: Vital Signs Temp Pulse Resp BP 97.8 F 89 16 158/81 H 07/28/24 11:14 07/28/24 11:14 07/28/24 11:14 07/28/24 11:14 Lab / Micro Data Labs: Laboratory Results - last 24 hr 07/28/24 08:14: POC Glucose 212 H 07/28/24 10:23: POC Glucose 129 H Exam Physical Exam Const alert, oriented x3 and no apparent distress General Appearance: cooperative HEENT normocephalic HEENT Narrative: Bilateral Tympanostomy tubes in place. Eyes General Eye: normal appearance of both eyes Resp normal respiratory effort, no use of accessory muscles and clear to auscultation bilaterally Effort and Inspection: able to speak in complete sentences Cardio regular rate and regular rhythm Palpation: normal PMI Psych mental status grossly normal, thought process normal, cooperative, affect normal and speech normal Nursing Assessment and Debridement Post-Debridement Measurements and Additional Note: Post-Debridement Measurements/Treatment WC - Nurse 1 - General Ulcer Assessment Start: 07/24/24 08:54 Freq: Status: Active Protocol: ALISSA.LOWEXT Activity Type Activity Date Activity User E-sign Co-sign Detail Recorded Client Recorded Date Recorded By Document 07/27/24 11:09 JENIFFER [id number] 07/27/24 11:15 DL 07/27/24 11:09 - Today's Visit Information Type of service Follow-up Visit (Physician/BANK CONSULTANT ) Arrival Mode Ambulatory Transfer Assistance Transfer Board Patient Identification Verified (Name & Yes ) Patient Requires Transmission-Based No Precautions Finger Stick Blood Sugar(mg/dl) (if 124 indicated): Blood Sugar Done During this Visit Vital Signs Temperature (97.8 F-99.1 F) 96.8 F L Temperature Source Temporal Pulse Rate (60-100) 73 Pulse Location Monitor Respiratory Rate (12-18) 15 Respiratory rate source Observation Blood Pressure (90/60-120/80) 118/60 Blood Pressure Mean (mm Hg) 79 Source Monitor History Since Last Visit- (Skip if this is Patient's initial visit) Have you changed medications since your No last visit? Any new allergies or adverse reactions No Had a fall/change in ADL's that may No increase risk of falls Signs or symptoms of abuse and/or No neglect since last visit Have you been in the hospital since your No last visit? Has dressing in place as prescribed Yes Has compression in place as prescribed Yes Has offloadiing in place as prescribed N/A Experienced any changes in pain level or No management Pain Scale: 0-10 Numeric Is Patient Pain Free? Yes - Nurse 1 - General Ulcer Measurement Start: 07/24/24 08:54 Freq: Status: Active Protocol: Activity Type Activity Date Activity User E-sign Co-sign Detail Recorded Client Recorded Date Recorded By Document 07/27/24 11:09 JENIFFER [id number] 07/27/24 11:15 DL 07/27/24 11:09 Wound Center Nurse 1 #5 RDorsal/Anterior Ankle -Current Size (cm) - Length 1.8 -Current Size (cm) - Width 1.1 -Current Size (cm) - Depth 0.1 -Total Square Cm 1.98 -Photo Taken Yes -Exudate Amt Medium -Exudate Type Serosanguineous -Wound Margin Distinct, Outline Attached -Granulation Amt Small (1-33%) -Granulation Quality [place] -Necrosis Amt Large (67-100%) -Necrotic Tissue Type Adherent Slough -Structure Exposed N/A -Texture (Marie-wound Skin Appearance) Localized Edema ,Scarring -Moisture (Marie-wound Skin Appearance) Maceration -Color (Marie-wound Skin Appearance) No Abnormality -Temperature (Marie-wound Skin No Abnormality Appearance) (Pt Warm) -Ulcer Cleansing Soap and Water -Foul Odor after Cleansing No -Anesthetic Used 5% Lidocaine Gel Right Calf (cm) 35.5 Right Ankle (cm) 21.4 WC - Nurse 2 - General Ulcer CM Notes Start: 07/24/24 08:54 Freq: Status: Active Protocol: Activity Type Activity Date Activity User E-sign Co-sign Detail Recorded Client Recorded Date Recorded By Document 07/27/24 11:40 [facility] [id number] 07/27/24 12:26 [facility] 07/27/24 11:40 Wound Center Nurse 2 #7- R PLANTAR FOOT -Time 11:49 -Wound/Ulcer Outcome Not Healed -Ulcer Cleansing Rinsed/ Irrigated with Saline -Foul Odor after Cleansing No -Bleeding Controlled with Pressure -Treatment Response Procedure Tolerated Well -Wound Comment(s) HEMATOMA DRAINED #5 RDorsal/Anterior Ankle -Time 11:45 -Correct Patient Yes -Correct Side, Site, Position Yes -Correct Procedure Yes -Procedure Performed Yes -Type of Procedure Debridement -Clinical Debridement Subcutaneous -Tissue Removed Subcutaneous -Post Debridement (cm) - Length 1.7 -Post Debridement (cm) - Width 1.4 -Post Debridement (cm) - Depth 0.1 -Total Square (Post) (cm) 2.38 -Area of Debridement (cm) - Length 1.7 -Area of Debridement (cm) - Width 1.4 -Total Square (Area) (cm) 2.38 -Tunneling No -Undermining/Tunneling No -Circular Undermining No -Wound/Ulcer Outcome Not Healed -Ulcer Cleansing Rinsed/ Irrigated with Saline -Foul Odor after Cleansing No -Bioengineered Tissue No -Bleeding Controlled with Pressure,Silver Nitrate -Treatment Response Procedure Tolerated Well -Debridement - Subq, 1st 20sq cm Yes Pain Scale: 0-10 Numeric Is Patient Pain Free? Yes WC - Nurse 3 - General Ulcer D/C NN Start: 07/24/24 08:54 Freq: Status: Active Protocol: Activity Type Activity Date Activity User E-sign Co-sign Detail Recorded Client Recorded Date Recorded By Document 07/27/24 12:44 CP [id number] 07/27/24 12:45 CP 07/27/24 12:44 Wound Care Center Nurse 3 #7- R PLANTAR FOOT -Other Dressing ABD -Primary Dressing Covered/Secured with Dry Gauze & Roll Gauze, Secured with Tape -Wound Comment(s) ARMANDO #5 RDorsal/Anterior Ankle -Primary Dressing Applied Aquacel Extra, Collagen Powder -Other Dressing HYDROGEL/ABD -Primary Dressing Covered/Secured with Dry Gauze & Roll Gauze, Secured with Tape -Aquacel Extra 1 -Collagen Powder 1 Pain Scale: 0-10 Numeric Is Patient Pain Free? Yes WC - Visit Discharge Discharge Condition Stable Ambulatory Status Ambulatory Transportation Private Auto Medication Reconcilliation completed & No provided to patient/care provider Clinical Summary of Care Provided Yes Assessment/Plan Assessment/Plan (1) Type 2 diabetes mellitus with foot ulcer: CODE(S): E11.621 - Type 2 diabetes mellitus with foot ulcer; L97.509 - Non-pressure chronic ulcer of other part of unspecified foot with unspecified severity QUALIFIERS: Diabetes mellitus chcf insulin use: with superintendent container terminal use Qualified Code(s): E11.621 - Type 2 diabetes mellitus with foot ulcer; L97.509 - Non-pressure chronic ulcer of other part of unspecified foot with unspecified severity; Z79.4 - jail (current) use of insulin (2) Non-pressure chronic ulcer of other part of right foot with fat layer exposed: CODE(S): L97.512 - Non-pressure chronic ulcer of other part of right foot with fat layer exposed (3) Type 2 diabetes mellitus with diabetic polyneuropathy: CODE(S): E11.42 - Type 2 diabetes mellitus with diabetic polyneuropathy QUALIFIERS: Diabetes mellitus superintendent container terminal insulin use: with superintendent container terminal use Qualified Code(s): E11.42 - Type 2 diabetes mellitus with diabetic polyneuropathy; Z79.4 - keno terminal operator (current) use of insulin (4) Charcot's joint of right foot: CODE(S): M14.671 - Charcot's joint, right ankle and foot PLAN: Plan The patient appears to be tolerating hyperbaric oxygen therapy well, which will be continued as per their medical treatment plan.
--- NOTE | 2024-07-30 19:37 | PCM.HBO.PN ---
History of Present Illness Date of Service: 07/26/24 Chief Complaint: Diabetic right foot ulceration History of Wound: Ms. Falk is a 58-year-old currently being seen at the wound center for right foot/ankle ulcer. She is currently undergoing hyperbaric oxygen therapy for the diabetic foot ulceration involving her right foot. She has been under the care of Dr. Jason Lewis, Community Support Professional, relative to the management of her diabetic foot ulceration. Review of the patient's medical record indicates that she has tolerated HBOT well and there has been corresponding significant improvement in ulcer. 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 Blood glucose readings have been largely stable. No chest pain, tightness, blurry vision or concerns reported. Progress of Wound: Progress: Today's session represents the 57th of 60 approved sessions. Tolerance: Hyperbaric oxygen therapy was administered as per the facility's protocol. HBO therapy was administered at 100% oxygen at 2 KELLY for 90 minutes without air breaks. She tolerated hyperbaric oxygen therapy without complications or complaints. Upon emergence from the chamber, her vitals remained stable. She was discharged in stable condition. Pre and post blood glucose readings as documented. Objective Data Objective Data Vital Signs: Vital Signs Temp Pulse Resp BP 97.8 F 89 16 158/81 H 07/28/24 11:14 07/28/24 11:14 07/28/24 11:14 07/28/24 11:14 Exam Physical Exam Const alert, oriented x3 and no apparent distress General Appearance: cooperative and well developed HEENT normocephalic HEENT Narrative: Bilateral Tympanostomy tubes in place. Head and Scalp: atraumatic Eyes EOMs intact bilaterally General Eye: normal appearance of both eyes Resp normal respiratory effort and no use of accessory muscles Effort and Inspection: able to speak in complete sentences Psych mental status grossly normal, thought process normal, cooperative, affect normal and speech normal Appearance: grossly normal Speech: normal speech Charges/Coding Wound Center CF Procedures HBO Supervision: [id number] Hyperbaric Oxygen; supervision Assessment/Plan Assessment/Plan (1) Type 2 diabetes mellitus with foot ulcer: CODE(S): E11.621 - Type 2 diabetes mellitus with foot ulcer; L97.509 - Non-pressure chronic ulcer of other part of unspecified foot with unspecified severity QUALIFIERS: Diabetes mellitus assisted insulin use: with long term care phlebotomist use Qualified Code(s): E11.621 - Type 2 diabetes mellitus with foot ulcer; L97.509 - Non-pressure chronic ulcer of other part of unspecified foot with unspecified severity; Z79.4 - termite exterminator (current) use of insulin (2) Non-pressure chronic ulcer of other part of right foot with fat layer exposed: CODE(S): L97.512 - Non-pressure chronic ulcer of other part of right foot with fat layer exposed (3) Type 2 diabetes mellitus with diabetic polyneuropathy: CODE(S): E11.42 - Type 2 diabetes mellitus with diabetic polyneuropathy QUALIFIERS: Diabetes mellitus assisted insulin use: with assisted use Qualified Code(s): E11.42 - Type 2 diabetes mellitus with diabetic polyneuropathy; Z79.4 - longterm (current) use of insulin (4) Charcot's joint of right foot: CODE(S): M14.671 - Charcot's joint, right ankle and foot PLAN: Plan The patient appears to be tolerating hyperbaric oxygen therapy well, which will be continued as per her medical treatment plan.
--- NOTE | 2024-07-31 08:37 | PCM.HBO.PN ---
History of Present Illness Date of Service: 07/31/24 Chief Complaint: Diabetic right foot ulceration History of Wound: Ms. Falk is a 58-year-old currently being seen at the wound center for right foot/ankle ulcer. She is currently undergoing hyperbaric oxygen therapy for the diabetic foot ulceration involving her right foot. She has been under the care of Dr. Jason Lewis, Lock And Dam Repairer, relative to the management of her diabetic foot ulceration. Review of the patient's medical record indicates that she has tolerated HBOT well and there has been corresponding significant improvement in ulcer. 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 Blood glucose readings have been largely stable. No chest pain, tightness, blurry vision or concerns reported. Progress of Wound: Progress: Today's session represents the 60th of 60 approved sessions. Reports improvement. Tolerance: Hyperbaric oxygen therapy was administered as per the facility's protocol. HBO therapy was administered at 100% oxygen at 2 KELLY for 90 minutes without air breaks. She thas been tolerating hyperbaric oxygen therapy without complications or complaints. Upon emergence from the chamber, her vitals have been stable. Objective Data Objective Data Vital Signs: Vital Signs Temp Pulse Resp BP 97.8 F 89 16 158/81 H 07/28/24 11:14 07/28/24 11:14 07/28/24 11:14 07/28/24 11:14 Exam Physical Exam Const alert and oriented x3 Eyes EOMs intact bilaterally Resp normal respiratory effort and clear to auscultation bilaterally Cardio regular rate and regular rhythm Charges/Coding Wound Center CF Procedures HBO Supervision: [id number] Hyperbaric Oxygen; supervision Assessment/Plan Assessment/Plan (1) Type 2 diabetes mellitus with foot ulcer: CODE(S): E11.621 - Type 2 diabetes mellitus with foot ulcer; L97.509 - Non-pressure chronic ulcer of other part of unspecified foot with unspecified severity QUALIFIERS: Diabetes mellitus local company intermodal truck driver insulin use: with local company intermodal truck driver use Qualified Code(s): E11.621 - Type 2 diabetes mellitus with foot ulcer; L97.509 - Non-pressure chronic ulcer of other part of unspecified foot with unspecified severity; Z79.4 - moth exterminator (current) use of insulin (2) Non-pressure chronic ulcer of other part of right foot with fat layer exposed: CODE(S): L97.512 - Non-pressure chronic ulcer of other part of right foot with fat layer exposed (3) Type 2 diabetes mellitus with diabetic polyneuropathy: CODE(S): E11.42 - Type 2 diabetes mellitus with diabetic polyneuropathy QUALIFIERS: Diabetes mellitus usp insulin use: with local company intermodal truck driver use Qualified Code(s): E11.42 - Type 2 diabetes mellitus with diabetic polyneuropathy; Z79.4 - detention (current) use of insulin (4) Charcot's joint of right foot: CODE(S): M14.671 - Charcot's joint, right ankle and foot PLAN: Plan The patient appears to be tolerating hyperbaric oxygen therapy well, which will be continued as per her medical treatment plan.
[2024-07-31 08:39] LABS: Bedside Glucose 229 mg/dL (74-106)
[2024-07-31 08:44] VITALS: BP 115/62; BP 143/73; PULSE 103; PULSE 84; RESP 16; RESP 18; TEMP 35.5; TEMP 36.2
[2024-07-31 10:49] LABS: Bedside Glucose 158 mg/dL (74-106)
[2024-08-03 10:43] VITALS: BP 132/73; PULSE 104; RESP 20; TEMP 36.3
--- NOTE | 2024-08-03 13:10 | PN.PCM_ITS ---
History of Present Illness Date of Service: 08/03/24 Chief Complaint: Diabetic right foot ulceration History of Wound: Ms. Falk is a 58-year-old currently being seen at the wound center for right foot/ankle ulcer. She is currently undergoing hyperbaric oxygen therapy for the diabetic foot ulceration involving her right foot. She has been under the care of Dr. Jason Lewis, Ironing Worker, relative to the management of her diabetic foot ulceration. Review of the patient's medical record indicates that she has tolerated HBOT well and there has been corresponding significant improvement in ulcer. 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 Blood glucose readings have been largely stable. No chest pain, tightness, blurry vision or concerns reported. Progress of Wound: Progress: Today's session represents the 60th of 60 approved sessions. Reports improvement. Tolerance: Hyperbaric oxygen therapy was administered as per the facility's protocol. HBO therapy was administered at 100% oxygen at 2 KELLY for 90 minutes without air breaks. She thas been tolerating hyperbaric oxygen therapy without complications or complaints. Upon emergence from the chamber, her vitals have been stable. Subjective Subjective This is a 58-year-old female who continues to follow with the wound care center for right dorsal foot ulceration. She had previously undergone I&D on 02/10/2024 of the right foot. Continues healing and is changing dressing daily. Reports she has finished all HBO dives. She feels ulceration is improving and looking better each week. Continues to rest her foot from likely inciting new Charcot event. Denies constitutional symptoms. Denies further complaints. Objective Data Objective Data Vital Signs: Vital Signs Temp Pulse Resp BP 97.4 F L 104 H 20 H 132/73 H 08/03/24 10:43 08/03/24 10:43 08/03/24 10:43 08/03/24 10:43 Physical Exam Const alert, oriented x3 and no apparent distress General Appearance: cooperative HEENT normocephalic Eyes General Eye: normal appearance of both eyes Neck General: normal visual inspection Lymph Lymphatic: no lymphadenopathy noted and no lymphedema noted Resp normal respiratory effort Cardio regular rate and regular rhythm Extremity no calf tenderness Extremity Narrative: Right lower extremity: Vascular: DP and PT pulses palpable with adequate capillary fill time to the digits. Normal temperature gradient. Hair growth is absent to the digits. Neurologic: Gross sensation intact. Absent protective sensation consistent with diabetic peripheral polyneuropathy Musculoskeletal: No pain to palpation about the ulcerative site secondary to diabetic peripheral polyneuropathy. There is a Charcot foot deformity noted of the right foot. No pain to palpation about the ulcerative site. Dermatologic: Incision site medial foot healed with cicatrix. No signs of infection. Incision site anterior leg with cicatrix proximally and distally. No signs of infection. There is a full thickness ulceration dorsally along the midfoot medial to the incision site with healthy granular tissue and some hypergranular tissue. Ulceration continues improvement with reduction in size and is progressing well. Ulceration site demonstrates no signs of infection. Plantar foot demonstrates improvement in ecchymosis with [address] following draining of small hematoma. Skin no rashes or lesions noted Neuro moves all extremities Debridement Note Debridement Note Wound debrided: Right foot Laterality: Right Wound Grade/Stage: Gonzalez stage III Type of Debridement: Excisional debridement Anesthesia Used: 5% Lidocaine Gel Depth: Down to and including healthy tissue and in the subcutaneous layer Percentage of wound debrided: 100 Instrument Used: #15 blade Tissue Removed: Fibrous, devitalized subcutaneous, biofilm, slough Severity: Fat Layer Exposed Amount of bleeding with debridement: Mild Bleeding Controlled with: Compression and gauze Patient tolerated procedure: Patient tolerated procedure well Post-Debridement Measurements and Additional Note: Post-Debridement Measurements/Treatment - Nurse 1 - General Ulcer Assessment Start: 07/24/24 08:54 Freq: Status: Active Protocol: ALISSA.FELIPE Activity Type Activity Date Activity User E-sign Co-sign Detail Recorded Client Recorded Date Recorded By Document 07/27/24 11:09 DL [id number] 07/27/24 11:15 DL Document 08/03/24 10:43 DL [id number] 08/03/24 10:53 DL 07/27/24 08/03/24 11:09 10:43 - Today's Visit Information Type of service Follow-up Visit Follow-up Visit (Physician/ANNUAL GIVING OFFICER (Physician/ANNUAL GIVING OFFICER ) ) Arrival Mode Ambulatory Ambulatory Transfer Assistance Transfer Board None Patient Identification Verified (Name & Yes Yes ) Patient Requires Transmission-Based No No Precautions Finger Stick Blood Sugar(mg/dl) (if 124 indicated): Blood Sugar Done During this Visit Vital Signs Temperature (97.8 F-99.1 F) 96.8 F L 97.4 F L Temperature Source Temporal Temporal Pulse Rate (60-100) 73 104 H Pulse Location Monitor Monitor Respiratory Rate (12-18) 15 20 H Respiratory rate source Observation Observation Blood Pressure (90/60-120/80) 118/60 132/73 H Blood Pressure Mean (mm Hg) 79 92 Source Monitor Monitor History Since Last Visit- (Skip if this is Patient's initial visit) Have you changed medications since your No No last visit? Any new allergies or adverse reactions No No Had a fall/change in ADL's that may No No increase risk of falls Signs or symptoms of abuse and/or No No neglect since last visit Have you been in the hospital since your No No last visit? Has dressing in place as prescribed Yes Yes Has compression in place as prescribed Yes Yes Has offloadiing in place as prescribed N/A Yes Experienced any changes in pain level or No No management Pain Scale: 0-10 Numeric Is Patient Pain Free? Yes Yes WC - Nurse 1 - General Ulcer Measurement Start: 07/24/24 08:54 Freq: Status: Active Protocol: Activity Type Activity Date Activity User E-sign Co-sign Detail Recorded Client Recorded Date Recorded By Document 07/27/24 11:09 DL [id number] 07/27/24 11:15 DL Document 08/03/24 10:43 DL [id number] 08/03/24 10:53 DL 07/27/24 08/03/24 11:09 10:43 Wound Center Nurse 1 #7- R PLANTAR FOOT -Current Size (cm) - Length 0.1 -Current Size (cm) - Width 0.1 -Current Size (cm) - Depth 0.1 -Total Square Cm 0.01 -Photo Taken Yes -Granulation Amt None Present (0 %) -Necrosis Amt None Present (0 %) -Structure Exposed N/A -Texture (Marie-wound Skin Appearance) Callus, Localized Edema ,Scarring -Moisture (Marie-wound Skin Appearance) Dry/Scaly -Color (Marie-wound Skin Appearance) No Abnormality -Temperature (Marie-wound Skin No Abnormality Appearance) (Pt Warm) -Tenderness on Palpation (Marie-wound No Skin Appearance) -Ulcer Cleansing Soap and Water -Foul Odor after Cleansing No -Wound Comment(s) Sutures intact. Painful this morning. #5 RDorsal/Anterior Ankle -Current Size (cm) - Length 1.8 1.2 -Current Size (cm) - Width 1.1 1.5 -Current Size (cm) - Depth 0.1 0.1 -Total Square Cm 1.98 1.80 -Photo Taken Yes Yes -Exudate Amt Medium Medium -Exudate Type Serosanguineous -Wound Margin Distinct, Distinct, Outline Outline Attached Attached -Granulation Amt Small (1-33%) None Present (0 %) -Granulation Quality [place] Hyper- granulation -Necrosis Amt Large (67-100%) Large (67-100%) -Necrotic Tissue Type Adherent Slough Adherent Slough -Structure Exposed N/A N/A -Texture (Marie-wound Skin Appearance) Localized Edema Localized Edema ,Scarring ,Scarring -Moisture (Marie-wound Skin Appearance) Maceration No Abnormality -Color (Marie-wound Skin Appearance) No Abnormality No Abnormality -Temperature (Marie-wound Skin No Abnormality No Abnormality Appearance) (Pt Warm) (Pt Warm) -Tenderness on Palpation (Marie-wound No Skin Appearance) -Ulcer Cleansing Soap and Water Soap and Water -Foul Odor after Cleansing No No -Anesthetic Used 5% Lidocaine 5% Lidocaine Gel Gel Right Calf (cm) 35.5 Right Ankle (cm) 21.4 WC - Nurse 2 - General Ulcer CM Notes Start: 07/24/24 08:54 Freq: Status: Active Protocol: Activity Type Activity Date Activity User E-sign Co-sign Detail Recorded Client Recorded Date Recorded By Document 07/27/24 11:40 [facility] [id number] 07/27/24 12:26 [facility] Document 08/03/24 11:28 [facility] [id number] 08/03/24 11:37 [facility] 07/27/24 08/03/24 11:40 11:28 Wound Center Nurse 2 #7- R PLANTAR FOOT -Time 11:49 11:34 -Procedure Performed No -Post Debridement (cm) - Length 0.1 -Post Debridement (cm) - Width 0.1 -Post Debridement (cm) - Depth 0.1 -Total Square (Post) (cm) 0.01 -Area of Debridement (cm) - Length 0.1 -Area of Debridement (cm) - Width 0.1 -Total Square (Area) (cm) 0.01 -Wound/Ulcer Outcome Not Healed -Ulcer Cleansing Rinsed/ Irrigated with Saline -Foul Odor after Cleansing No -Bleeding Controlled with Pressure NA -Treatment Response Procedure Tolerated Well -Wound Comment(s) HEMATOMA sutures intact DRAINED #5 RDorsal/Anterior Ankle -Time 11:45 11:28 -Correct Patient Yes Yes -Correct Side, Site, Position Yes Yes -Correct Procedure Yes Yes -Procedure Performed Yes Yes -Type of Procedure Debridement Debridement -Clinical Debridement Subcutaneous Subcutaneous -Tissue Removed Subcutaneous Subcutaneous -Post Debridement (cm) - Length 1.7 1.3 -Post Debridement (cm) - Width 1.4 1.4 -Post Debridement (cm) - Depth 0.1 0.1 -Total Square (Post) (cm) 2.38 1.82 -Area of Debridement (cm) - Length 1.7 1.3 -Area of Debridement (cm) - Width 1.4 1.4 -Total Square (Area) (cm) 2.38 1.82 -Tunneling No No -Undermining/Tunneling No No -Circular Undermining No No -Wound/Ulcer Outcome Not Healed Not Healed -Ulcer Cleansing Rinsed/ Rinsed/ Irrigated with Irrigated with Saline Saline -Foul Odor after Cleansing No No -Bioengineered Tissue No No -Bleeding Controlled with Pressure,Silver Pressure Nitrate -Treatment Response Procedure Procedure Tolerated Well Tolerated Well -Debridement - Subq, 1st 20sq cm Yes Yes Pain Scale: 0-10 Numeric Is Patient Pain Free? Yes Yes - Nurse 3 - General Ulcer D/C NN Start: 07/24/24 08:54 Freq: Status: Active Protocol: Activity Type Activity Date Activity User E-sign Co-sign Detail Recorded Client Recorded Date Recorded By Document 07/25/24 11:15 [id number] 07/25/24 11:18 Document 07/27/24 12:44 [id number] 07/27/24 12:45 07/25/24 07/27/24 11:15 12:44 Wound Care Center Nurse 3 #7- R PLANTAR FOOT -Other Dressing ABD -Primary Dressing Covered/Secured with Dry Gauze & Roll Gauze, Secured with Tape -Wound Comment(s) ARMANDO #5 RDorsal/Anterior Ankle -Primary Dressing Applied Aquacel Extra, Collagen Powder -Other Dressing HYDROGEL/ABD -Primary Dressing Covered/Secured with Dry Gauze & Roll Gauze, Secured with Tape -Aquacel Extra 1 -Collagen Powder 1 Pain Scale: 0-10 Numeric Is Patient Pain Free? Yes Yes WC - Visit Discharge Discharge Condition Stable Stable Ambulatory Status Ambulatory Ambulatory Transportation Private Auto Private Auto Medication Reconcilliation completed & No provided to patient/care provider Clinical Summary of Care Provided Yes Assessment/Plan Assessment/Plan (1) Non-pressure chronic ulcer of other part of right foot with fat layer exposed: CODE(S): L97.512 - Non-pressure chronic ulcer of other part of right foot with fat layer exposed (2) Type 2 diabetes mellitus with diabetic polyneuropathy: CODE(S): E11.42 - Type 2 diabetes mellitus with diabetic polyneuropathy QUALIFIERS: Diabetes mellitus termite renewal inspector insulin use: with intermediate use Qualified Code(s): E11.42 - Type 2 diabetes mellitus with diabetic polyneuropathy; Z79.4 - [facility] (current) use of insulin (3) Charcot's joint of right foot: CODE(S): M14.671 - Charcot's joint, right ankle and foot (4) Type 2 diabetes mellitus with foot ulcer: CODE(S): E11.621 - Type 2 diabetes mellitus with foot ulcer; L97.509 - Non-pressure chronic ulcer of other part of unspecified foot with unspecified severity QUALIFIERS: Diabetes mellitus termite renewal inspector insulin use: with termite renewal inspector use Qualified Code(s): E11.621 - Type 2 diabetes mellitus with foot ulcer; L97.509 - Non-pressure chronic ulcer of other part of unspecified foot with unspecified severity; Z79.4 - [facility] (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 DOS 02/10/2024 She is 6 months out of surgery. Cicatrix at incision sites medial foot and anterior leg with no signs of infection. Ulceration dorsal foot continues granulating in well versus her previous visit. She continues healing well at this time and continues HBO dives following tube placement. Ulceration predebridement measures 1.2 cm x 1.0 cm x 0.1 cm Ulceration did undergo debridement as noted on clinical panel above. Postdebridement measurements 1.3 cm x 1.1 cm x 0.1 cm. Has completed all 10 applications of EpiFix #10. Collagen powder moistened with hydrogel applied to the ulcerative bed today. Aquacel Ag and DSD applied. She is to change dressing daily. Her area of previous ulceration to the plantar foot with subdermal hemorrhaging is improved. Previous hematoma was expressed. Suture of a 2-[address] in [address] I previously discussed with her that I feel she is started to entering new acute Charcot event most likely when she removed her boot to stand barefoot in the shower. Discussed reapplying the CAM boot and continuing to stay off of her foot is much as possible over the next 3 weeks until consolidation can begin to occur. She is understanding of this. Ulceration demonstrates decreased in size vs previous visit. Overall healing well and progressing towards healing. She was approved for EpiFix, completed all 10 applications. Due to her acute Charcot event placing her at increased risk for infection she was started on oral antibiotic. Rx doxycycline 100 mg twice daily x 14 days, levofloxacin 750 mg p.o. daily x 14 days, Diflucan 150 mg tablet every 72 hours x 3 doses as she does get candidiasis when taking oral antibiotic. ABX stop date 08/10/2024 Will be permitted to continue protective weightbearing to the right lower extremity in CAM boot. Has completed all HBO dives. HgbA1c during hospital admission was 11.3% on 02/15/2024. Sugars have been well controlled following approval of insulin on new insurance. I do expect her A1c to continue to decrease. The following work up and care recommendations were made: Dressing: Collagen powder moistened with hydrogel, amiandoel Ag, dry sterile dressing right foot. Change daily Wash: Soap and water Tissue growth optimization: Collagen powder and hydrogel Offload: Nonweightbearing to the right lower extremity Vascular: DP and PT pulses palpable with adequate capillary fill time. Vascular status not impacting healing at this time. Edema: Edema well-controlled. Will continue with Tubigrip stocking application Infection: No signs of infection. Currently on IV antibiotics via PICC line. Will continue daptomycin and Unasyn per ID Pain: No pain to the ulcerative site secondary to diabetic peripheral polyneuropathy Host factors: DM type II with peripheral polyneuropathy, uncontrolled. Charcot foot right foot At this time prognosis is good and she continues healing well. Will continue HBO therapy as this is aiding in wound healing. I answered all the patient's questions. To return to the wound healing center in 1 week or call sooner if the patient has any questions or concerns.
[2024-08-10 08:30] VITALS: BP 120/69; PULSE 95; RESP 18; TEMP 36.2
--- NOTE | 2024-08-10 09:44 | PN.PCM_ITS ---
History of Present Illness Date of Service: 08/10/24 Chief Complaint: Diabetic right foot ulceration History of Wound: Ms. Falk is a 58-year-old currently being seen at the wound center for right foot/ankle ulcer. She is currently undergoing hyperbaric oxygen therapy for the diabetic foot ulceration involving her right foot. She has been under the care of Dr. Jason Lewis, Alterations Workroom Clerk, relative to the management of her diabetic foot ulceration. Review of the patient's medical record indicates that she has tolerated HBOT well and there has been corresponding significant improvement in ulcer. 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 Blood glucose readings have been largely stable. No chest pain, tightness, blurry vision or concerns reported. Progress of Wound: Progress: Today's session represents the 60th of 60 approved sessions. Reports improvement. Tolerance: Hyperbaric oxygen therapy was administered as per the facility's protocol. HBO therapy was administered at 100% oxygen at 2 KELLY for 90 minutes without air breaks. She thas been tolerating hyperbaric oxygen therapy without complications or complaints. Upon emergence from the chamber, her vitals have been stable. Subjective Subjective This is a 58-year-old female who continues to follow with the wound care center for right dorsal foot ulceration. She had previously undergone I&D on 02/10/2024 of the right foot. Continues healing of her dorsal ulceration and is changing dressing daily. She feels ulceration is improving and looking better each week but admits to continued swelling post-Charcot event. Continues to rest her foot as much as possible and is immobilizing in CAM boot. States she continues oral antibiotic as instructed. Reports having recent low temperature over weekend but this went away. Denies constitutional symptoms. Denies further complaints. Objective Data Objective Data Vital Signs: Vital Signs Temp Pulse Resp BP O2 Del Method 97.1 F L 95 18 120/69 Room Air 08/10/24 08:30 08/10/24 08:30 08/10/24 08:30 08/10/24 08:30 08/10/24 08:30 Oxygen Delivery Method Room Air Lab / Micro Data 08/10/24 09:47 Physical Exam Const alert, oriented x3 and no apparent distress General Appearance: cooperative HEENT normocephalic Eyes General Eye: normal appearance of both eyes Neck General: normal visual inspection Lymph Lymphatic: no lymphadenopathy noted and no lymphedema noted Resp normal respiratory effort Cardio regular rate and regular rhythm Extremity no calf tenderness Extremity Narrative: Right lower extremity: Vascular: DP and PT pulses palpable with adequate capillary fill time to the digits. Normal temperature gradient. Hair growth is absent to the digits. Neurologic: Gross sensation intact. Absent protective sensation consistent with diabetic peripheral polyneuropathy Musculoskeletal: No pain to palpation about the ulcerative site secondary to diabetic peripheral polyneuropathy. There is a Charcot foot deformity noted of the right foot. No pain to palpation about the ulcerative site. Dermatologic: Incision site medial foot healed with cicatrix. No signs of infection. Incision site anterior leg with cicatrix proximally and distally. No signs of infection. There is a full thickness ulceration dorsally along the midfoot medial to the incision site with healthy granular tissue and some hypergranular tissue. Ulceration continues improvement with reduction in size and is progressing well. Ulceration site demonstrates no signs of infection. Plantar foot demonstrates scant hyperkeratosis with some plantar rubor likely with continued Charcot degenerative arthropathy progression. No purulence expressible from plantar foot. Skin no rashes or lesions noted Neuro moves all extremities Debridement Note Debridement Note Wound debrided: Right foot Laterality: Right Wound Grade/Stage: Gonzalez stage III Type of Debridement: Excisional debridement Anesthesia Used: 5% Lidocaine Gel Depth: Down to and including healthy tissue and in the subcutaneous layer Percentage of wound debrided: 100 Instrument Used: 5mm curette, #15 blade and Forceps Tissue Removed: Fibrous, devitalized subcutaneous, biofilm, slough Severity: Fat Layer Exposed Amount of bleeding with debridement: Mild Bleeding Controlled with: Compression and gauze Patient tolerated procedure: Patient tolerated procedure well Post-Debridement Measurements and Additional Note: Post-Debridement Measurements/Treatment ALISSA - Nurse 1 - General Ulcer Assessment Start: 07/24/24 08:54 Freq: Status: Active Protocol: RUKHSANA Activity Type Activity Date Activity User E-sign Co-sign Detail Recorded Client Recorded Date Recorded By Document 07/27/24 11:09 DL [id number] 07/27/24 11:15 DL Document 08/03/24 10:43 DL [id number] 08/03/24 10:53 DL Document 08/10/24 08:30 KW [id number] 08/10/24 08:35 KW 07/27/24 08/03/2425 11:09 10:43 08:30 - Today's Visit Information Type of service Follow-up Visit Follow-up Visit Follow-up Visit (Physician/SALES RECORD CLERK (Physician/SALES RECORD CLERK (Physician/SALES RECORD CLERK ) ) ) Arrival Mode Ambulatory Ambulatory Ambulatory Transfer Assistance Transfer Board None Patient Identification Verified (Name & Yes Yes Yes ) Patient Requires Transmission-Based No No Precautions Finger Stick Blood Sugar(mg/dl) (if 124 indicated): Blood Sugar Done During this Visit Vital Signs Temperature (97.8 F-99.1 F) 96.8 F L 97.4 F L 97.1 F L Temperature Source Temporal Temporal Temporal Pulse Rate (60-100) 73 104 H 95 Pulse Location Monitor Monitor Monitor Respiratory Rate (12-18) 15 20 H 18 Respiratory rate source Observation Observation Observation Oxygen Delivery Method Room Air Blood Pressure (90/60-120/80) 118/60 132/73 H 120/69 Blood Pressure Mean (mm Hg) 79 92 86 Source Monitor Monitor Monitor Position Semi-Fowlers Blood Pressure Location Left Arm History Since Last Visit- (Skip if this is Patient's initial visit) Have you changed medications since your No No last visit? Any new allergies or adverse reactions No No Had a fall/change in ADL's that may No No increase risk of falls Signs or symptoms of abuse and/or No No neglect since last visit Have you been in the hospital since your No No last visit? Has dressing in place as prescribed Yes Yes Has compression in place as prescribed Yes Yes Has offloadiing in place as prescribed N/A Yes Experienced any changes in pain level or No No management Left Footwear Regular Shoe Right Footwear Regular Shoe Pain Scale: 0-10 Numeric Is Patient Pain Free? Yes Yes Yes - Nurse 1 - General Ulcer Measurement Start: 07/24/24 08:54 Freq: Status: Active Protocol: Activity Type Activity Date Activity User E-sign Co-sign Detail Recorded Client Recorded Date Recorded By Document 07/27/24 11:09 DL [id number] 07/27/24 11:15 DL Document 08/03/24 10:43 DL [id number] 08/03/24 10:53 DL Document 08/10/24 08:30 KW [id number] 08/10/24 08:35 KW 07/27/24 08/03/24 08/10/24 11:09 10:43 08:30 Wound Center Nurse 1 #7- R PLANTAR FOOT -Current Size (cm) - Length 0.1 0.1 -Current Size (cm) - Width 0.1 0.1 -Current Size (cm) - Depth 0.1 0 -Total Square Cm 0.01 0.01 -Date of Last Picture (Recall this 08/10/24 field) -Photo Taken Yes -Exudate Amt None Present -Granulation Amt None Present (0 %) -Necrosis Amt None Present (0 %) -Structure Exposed N/A -Texture (Marie-wound Skin Appearance) Callus, Assessed Localized Edema ,Scarring -Moisture (Marie-wound Skin Appearance) Dry/Scaly Assessed -Color (Marie-wound Skin Appearance) No Abnormality Assessed -Temperature (Marie-wound Skin No Abnormality No Abnormality Appearance) (Pt Warm) (Pt Warm) -Tenderness on Palpation (Marie-wound No No Skin Appearance) -Ulcer Cleansing Soap and Water Soap and Water -Foul Odor after Cleansing No -Wound Comment(s) Sutures intact. sutures intact Painful this morning. #5 RDorsal/Anterior Ankle -Current Size (cm) - Length 1.8 1.2 1.2 -Current Size (cm) - Width 1.1 1.5 1.5 -Current Size (cm) - Depth 0.1 0.1 0.1 -Total Square Cm 1.98 1.80 1.80 -Date of Last Picture (Recall this 08/10/24 field) -Photo Taken Yes Yes -Exudate Amt Medium Medium Small -Exudate Type Serosanguineous Serosanguineous -Wound Margin Distinct, Distinct, Distinct, Outline Outline Outline Attached Attached Attached -Granulation Amt Small (1-33%) None Present (0 Small (1-33%) %) -Granulation Quality [place] Hyper- Hyper- granulation granulation, [place],Red -Necrosis Amt Large (67-100%) Large (67-100%) Large (67-100%) -Necrotic Tissue Type Adherent Slough Adherent Slough Adherent Slough -Structure Exposed N/A N/A -Texture (Marie-wound Skin Appearance) Localized Edema Localized Edema Assessed ,Scarring ,Scarring -Moisture (Marie-wound Skin Appearance) Maceration No Abnormality Assessed, Maceration -Color (Marie-wound Skin Appearance) No Abnormality No Abnormality Assessed -Temperature (Marie-wound Skin No Abnormality No Abnormality No Abnormality Appearance) (Pt Warm) (Pt Warm) (Pt Warm) -Tenderness on Palpation (Marie-wound No No Skin Appearance) -Ulcer Cleansing Soap and Water Soap and Water Rinsed/ Irrigated with Saline -Foul Odor after Cleansing No No No -Anesthetic Used 5% Lidocaine 5% Lidocaine 5% Lidocaine Gel Gel Gel Right Calf (cm) 35.5 Right Ankle (cm) 21.4 WC - Nurse 2 - General Ulcer CM Notes Start: 07/24/24 08:54 Freq: Status: Active Protocol: Activity Type Activity Date Activity User E-sign Co-sign Detail Recorded Client Recorded Date Recorded By Document 07/27/24 11:40 [facility] [id number] 07/27/24 12:26 [facility] Document 08/03/24 11:28 [facility] [id number] 08/03/24 11:37 [facility] Document 08/10/24 08:43 [facility] [id number] 08/10/24 09:08 [facility] 07/27/24 08/03/24 08/10/24 11:40 11:28 08:43 Wound Center Nurse 2 #7- R PLANTAR FOOT -Time 11:49 11:34 -Procedure Performed No -Post Debridement (cm) - Length 0.1 0.1 -Post Debridement (cm) - Width 0.1 0.1 -Post Debridement (cm) - Depth 0.1 0.1 -Total Square (Post) (cm) 0.01 0.01 -Area of Debridement (cm) - Length 0.1 0.1 -Area of Debridement (cm) - Width 0.1 0.1 -Total Square (Area) (cm) 0.01 0.01 -Wound/Ulcer Outcome Not Healed Not Healed -Ulcer Cleansing Rinsed/ Irrigated with Saline -Foul Odor after Cleansing No -Bleeding Controlled with Pressure NA NA -Treatment Response Procedure Tolerated Well -Wound Comment(s) HEMATOMA sutures intact suture removal DRAINED #5 RDorsal/Anterior Ankle -Time 11:45 11:28 08:47 -Correct Patient Yes Yes Yes -Correct Side, Site, Position Yes Yes Yes -Correct Procedure Yes Yes Yes -Procedure Performed Yes Yes Yes -Type of Procedure Debridement Debridement Debridement -Clinical Debridement Subcutaneous Subcutaneous Subcutaneous -Tissue Removed Subcutaneous Subcutaneous Subcutaneous -Post Debridement (cm) - Length 1.7 1.3 1.5 -Post Debridement (cm) - Width 1.4 1.4 1.2 -Post Debridement (cm) - Depth 0.1 0.1 0.1 -Total Square (Post) (cm) 2.38 1.82 1.80 -Area of Debridement (cm) - Length 1.7 1.3 1.5 -Area of Debridement (cm) - Width 1.4 1.4 1.2 -Total Square (Area) (cm) 2.38 1.82 1.80 -Tunneling No No No -Undermining/Tunneling No No No -Circular Undermining No No No -Wound/Ulcer Outcome Not Healed Not Healed Not Healed -Ulcer Cleansing Rinsed/ Rinsed/ Rinsed/ Irrigated with Irrigated with Irrigated with Saline Saline Saline -Foul Odor after Cleansing No No No -Bioengineered Tissue No No No -Bleeding Controlled with Pressure,Silver Pressure Pressure Nitrate -Treatment Response Procedure Procedure Procedure Tolerated Well Tolerated Well Tolerated Well -Debridement - Subq, 1st 20sq cm Yes Yes Yes Pain Scale: 0-10 Numeric Is Patient Pain Free? Yes Yes Yes - Nurse 3 - General Ulcer D/C NN Start: 07/24/24 08:54 Freq: Status: Active Protocol: Activity Type Activity Date Activity User E-sign Co-sign Detail Recorded Client Recorded Date Recorded By Document 07/25/24 11:15 JF [id number] 07/25/24 11:18 JF Document 07/27/24 12:44 CP [id number] 07/27/24 12:45 CP Document 08/03/24 12:00 DS [id number] 08/04/24 16:54 DS Edit Result 08/03/24 12:00 DS (1) [id number] 08/04/24 16:56 DS Document 08/10/24 09:20 KW [id number] 08/10/24 09:22 KW (1) #5 RDorsal/Anterior Ankle - Primary Dressing Applied Aquacel Extra => Aquacel Extra, => Collagen Powder - Other Dressing => hydrogel/ABD - Primary Dressing Covered/Secured with Dry Gauze,Dry => Dry Gauze & Roll Gauze & Roll Gauze => Gauze,Secured with ,Secured with Tape => Tape - Collagen Powder => 1 07/25/24 07/27/24 08/03/24 11:15 12:44 12:00 Wound Care Center Nurse 3 #7- R PLANTAR FOOT -Other Dressing ABD -Primary Dressing Covered/Secured with Dry Gauze & Dry Gauze, Roll Gauze, Secured with Secured with Tape Tape -Wound Comment(s) SEBASTIAN #5 RDorsal/Anterior Ankle -Primary Dressing Applied Aquacel Extra, Aquacel Extra, Collagen Powder Collagen Powder -Other Dressing HYDROGEL/ABD hydrogel/ABD -Primary Dressing Covered/Secured with Dry Gauze & Dry Gauze & Roll Gauze, Roll Gauze, Secured with Secured with Tape Tape -Aquacel Extra 1 1 -Collagen Powder 1 1 RLE -Compression Wrap Pain Scale: 0-10 Numeric Is Patient Pain Free? Yes Yes Yes WC - Visit Discharge Discharge Condition Stable Stable Stable Ambulatory Status Ambulatory Ambulatory Ambulatory Transportation Private Auto Private Auto Medication Reconcilliation completed & No provided to patient/care provider Clinical Summary of Care Provided Yes 08/10/24 09:20 Wound Care Center Nurse 3 #7- R PLANTAR FOOT -Other Dressing puracol powder with hydrogel, using pts -Primary Dressing Covered/Secured with Dry Gauze,Dry Gauze & Roll Gauze,Secured with Tape -Wound Comment(s) #5 RDorsal/Anterior Ankle -Primary Dressing Applied -Other Dressing aquacel extra, using pts -Primary Dressing Covered/Secured with Dry Gauze -Aquacel Extra -Collagen Powder RLE -Compression Wrap Sebastian Wrap Pain Scale: 0-10 Numeric Is Patient Pain Free? 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 (2) Type 2 diabetes mellitus with diabetic polyneuropathy: CODE(S): E11.42 - Type 2 diabetes mellitus with diabetic polyneuropathy QUALIFIERS: Diabetes mellitus local intermodal truck driver insulin use: with local intermodal truck driver use Qualified Code(s): E11.42 - Type 2 diabetes mellitus with diabetic polyneuropathy; Z79.4 - local intermodal truck driver (current) use of insulin (3) Charcot's joint of right foot: CODE(S): M14.671 - Charcot's joint, right ankle and foot (4) Type 2 diabetes mellitus with foot ulcer: CODE(S): E11.621 - Type 2 diabetes mellitus with foot ulcer; L97.509 - Non-pressure chronic ulcer of other part of unspecified foot with unspecified severity QUALIFIERS: Diabetes mellitus jail insulin use: with jail use Qualified Code(s): E11.621 - Type 2 diabetes mellitus with foot ulcer; L97.509 - Non-pressure chronic ulcer of other part of unspecified foot with unspecified severity; Z79.4 - detention (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 DOS 02/10/2024 She is 6 months out of surgery. Cicatrix at incision sites medial foot and anterior leg with no signs of infection. Ulceration dorsal foot continues granulating in well versus her previous visit. She continues healing well at this time and continues HBO dives following tube placement. Ulceration predebridement measures 1.4 cm x 1.1 cm x 0.1 cm Ulceration did undergo debridement as noted on clinical panel above. Postdebridement measurements 1.5 cm x 1.2 cm x 0.1 cm. Has completed all 10 applications of EpiFix #10. Collagen powder moistened with hydrogel applied to the ulcerative bed today. Aquacel Ag and DSD applied. She is to change dressing daily. Her area of previous ulceration to the plantar foot with subdermal hemorrhaging is improved. Previous hematoma was expressed. The 2 sutures were removed today. Her scant hyperkeratosis at the plantar foot was debrided no expressible purulence from site. I previously discussed with her that I feel she is continuing progression of her new acute Charcot event most likely when she removed her boot to stand barefoot in the shower. Discussed reapplying the CAM boot for immobilization and continuing to stay off of her foot is much as possible over the next 3-6 weeks until consolidation can begin to occur. She is understanding of this. Ulceration demonstrates slight increase in size vs previous visit. Overall healing well and progressing towards healing of the dorsal foot ulceration. She still does demonstrate some plantar rubor right at site of Charcot arthropathy degeneration. There is no expressible purulence. But she does cite recent dental work prior to her starting antibiotic and with active Charcot hematogenous spread remains possible thus she will continue her current oral antibiotic with the addition of Augmentin 500 mg twice daily x 14 days. Labs were ordered today in addition to updated x-ray of the right foot. WBC from 08/10/2024 is 12.7, ESR 36, CRP 89.20. Radiographs from 08/10/2024 do demonstrate increased osseous destruction with joint fragmentation about the Lisfranc joint and sclerosis consistent with Charcot arthropathy however osteomyelitis cannot be ruled out due to the dorsal foot wound and previous dental work. Will continue to monitor closely. She is understanding if she does develop signs and symptoms of infection which were discussed with her today she is to report to the ED for IV antibiotics as she would have failed outpatient oral antibiotic therapy. She was approved for [facility], completed all 10 applications. Due to her acute Charcot event placing her at increased risk for infection she was started on oral antibiotic. Rx doxycycline 100 mg twice daily x 14 days, levofloxacin 750 mg p.o. daily x 14 days, Diflucan 150 mg tablet every 72 hours x 3 doses as she does get candidiasis when taking oral antibiotic. She was instructed to refill both antibiotics for continued coverage with her Augmentin. ABX stop date 08/24/2024 Will be permitted to continue protective weightbearing to the right lower extremity in CAM boot. Has completed all HBO dives. HgbA1c during hospital admission was 11.3% on 02/15/2024. Sugars have been well controlled following approval of insulin on new insurance. I do expect her A1c to continue to decrease. The following work up and care recommendations were made: Dressing: Collagen powder moistened with hydrogel, [employer] Ag, dry sterile dressing right foot. Change daily Wash: Soap and water Tissue growth optimization: Collagen powder and hydrogel Offload: Nonweightbearing to the right lower extremity Vascular: DP and PT pulses palpable with adequate capillary fill time. Vascular status not impacting healing at this time. Edema: Edema well-controlled. Will continue with Tubigrip stocking application Infection: No signs of infection. Currently on IV antibiotics via PICC line. Will continue daptomycin and Unasyn per ID Pain: No pain to the ulcerative site secondary to diabetic peripheral polyneuropathy Host factors: DM type II with peripheral polyneuropathy, uncontrolled. Charcot foot right foot At this time prognosis is good and she continues healing well. However her Charcot is complicating her healing. Will continue to monitor for infection as she has had a history of this. I answered all the patient's questions. To return to the wound healing center in 1 week or call sooner if the patient has any questions or concerns.
--- NOTE | 2024-08-10 09:55 | RAD_ITS ---
EXAM: XR Right Foot Complete, 3 or More Views CLINICAL INDICATION: PRESSURE ULCER TECHNIQUE: Frontal, lateral and oblique views of the right foot. COMPARISON: No relevant prior studies available. FINDINGS: BONES/JOINTS: Severe degenerative changes of the midfoot with scattered areas of haziness. Osteomyelitis can not be excluded. Partially visualized fixation plate and screws of the distal fibula. No acute fracture. No dislocation. SOFT TISSUES: Significant soft tissue swelling. No radiopaque foreign body. RAD/Foot min 3 Views IMPRESSION: Severe degenerative changes of the midfoot with scattered areas of haziness. O steomyelitis can not be excluded. Reading Location: [facility]
[2024-08-10 10:11] LABS: Erythrocyte Sedimentation Rate 36 mm/hr (0-30)
[2024-08-10 10:12] LABS: Absolute Neutrophil Count 9.3 X10^3/uL (2.0-7.7); Basophil# 0.09 X10^3/uL; Basophil% 0.7 % (0-1); Eosinophil# 0.42 X10^3/uL; Eosinophils% 3.3 % (0-5); Hematocrit 34.8 % (37-47); Hemoglobin 11.5 g/dL (12.0-15.0); Lymphocyte % 16.6 % (19-41); Mean Corpuscular Hgb 31.2 pg (27.0-32.0); Mean Corpuscular Volume 94.3 fL (81-99); Mean Platelet Vol. 9.1 fl (6.2-12.0); Monocyte# 0.69 X10^3/uL; Monocyte% 5.4 % (0-10); NRBC Flagged by Analyzer 0 % (0-5); Neutrophil # 9.26 X10^3/uL (2.7-7.7); Neutrophil % 73.1 % (47-70); Platelet Count 434 K/mm3 (150-450); Red Blood Count 3.69 M/mm3 (4.2-5.4); White Blood Count 12.7 K/mm3 (4.4-11.0)
--- NOTE | 2024-08-11 08:41 | WC ---
PHOTO 08/10/24 RIGHT PLANTAR
--- NOTE | 2024-08-11 08:50 | WC ---
PHOTO 08/10/24 RIGHT DORSAL
[2024-08-17 08:26] VITALS: BP 110/62; PULSE 85; RESP 18; TEMP 36.9
--- NOTE | 2024-08-17 12:42 | PCM.WC.PN ---
History of Present Illness Date of Service: 08/17/24 Chief Complaint: Diabetic right foot ulceration History of Wound: Ms. Falk is a 58-year-old currently being seen at the wound center for right foot/ankle ulcer. She is currently undergoing hyperbaric oxygen therapy for the diabetic foot ulceration involving her right foot. She has been under the care of Dr. Jason Lewis, Electroplating Sales Representative, relative to the management of her diabetic foot ulceration. Review of the patient's medical record indicates that she has tolerated HBOT well and there has been corresponding significant improvement in ulcer. 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 Blood glucose readings have been largely stable. No chest pain, tightness, blurry vision or concerns reported. Progress of Wound: Progress: Today's session represents the 60th of 60 approved sessions. Reports improvement. Tolerance: Hyperbaric oxygen therapy was administered as per the facility's protocol. HBO therapy was administered at 100% oxygen at 2 KELLY for 90 minutes without air breaks. She thas been tolerating hyperbaric oxygen therapy without complications or complaints. Upon emergence from the chamber, her vitals have been stable. Subjective Subjective This is a 58-year-old female who continues to follow with the wound care center for right dorsal foot ulceration. She had previously undergone I&D on 02/10/2024 of the right foot. Continues healing of her dorsal ulceration and is changing dressing daily. She feels ulceration is improving and looking better each week but still experiencing continued swelling post-Charcot event. Continues to rest her foot as much as possible and is immobilizing in CAM boot but was placed through functional capacity testing for her disability which did cause additional swelling on unstable foot. States she continues oral antibiotic as instructed. Reported having low temperature last weekend but this went away. Denies constitutional symptoms. Denies further complaints. Objective Data Objective Data Vital Signs: Vital Signs Temp Pulse Resp BP O2 Del Method 98.4 F 85 18 110/62 Room Air 08/17/24 08:26 08/17/24 08:26 08/17/24 08:26 08/17/24 08:26 08/10/24 08:30 Oxygen Delivery Method Room Air Lab / Micro Data 08/10/24 09:47 Physical Exam Const alert, oriented x3 and no apparent distress General Appearance: cooperative HEENT normocephalic Eyes General Eye: normal appearance of both eyes Neck General: normal visual inspection Lymph Lymphatic: no lymphadenopathy noted and no lymphedema noted Resp normal respiratory effort Cardio regular rate and regular rhythm Extremity no calf tenderness Extremity Narrative: Right lower extremity: Vascular: DP and PT pulses palpable with adequate capillary fill time to the digits. Normal temperature gradient. Hair growth is absent to the digits. Neurologic: Gross sensation intact. Absent protective sensation consistent with diabetic peripheral polyneuropathy Musculoskeletal: No pain to palpation about the ulcerative site secondary to diabetic peripheral polyneuropathy. There is a Charcot foot deformity noted of the right foot. No pain to palpation about the ulcerative site. Dermatologic: Incision site medial foot healed with cicatrix. No signs of infection. Incision site anterior leg with cicatrix proximally and distally. No signs of infection. There is a full thickness ulceration dorsally along the midfoot medial to the incision site with healthy granular tissue and some hypergranular tissue. Ulceration continues improvement with reduction in size and is progressing well. Ulceration site demonstrates no signs of infection. Plantar foot demonstrates scant hyperkeratosis with some plantar rubor likely with continued Charcot degenerative arthropathy progression. No purulence expressible from plantar foot. Skin no rashes or lesions noted Neuro moves all extremities Debridement Note Debridement Note Wound debrided: Dorsal right foot Laterality: Right Wound Grade/Stage: Gonzalez stage III Type of Debridement: Excisional debridement Anesthesia Used: 5% Lidocaine Gel Depth: Down to and including healthy tissue and in the subcutaneous layer Percentage of wound debrided: 100 Instrument Used: 5mm curette Tissue Removed: Fibrous, devitalized subcutaneous, biofilm, slough Severity: Fat Layer Exposed Amount of bleeding with debridement: Mild Bleeding Controlled with: Compression and gauze Patient tolerated procedure: Patient tolerated procedure well Post-Debridement Measurements and Additional Note: Post-Debridement Measurements/Treatment ALISSA - Nurse 1 - General Ulcer Assessment Start: 07/24/24 08:54 Freq: Status: Active Protocol: RUKHSANA Activity Type Activity Date Activity User E-sign Co-sign Detail Recorded Client Recorded Date Recorded By Document 07/27/24 11:09 DL [id number] 07/27/24 11:15 DL Document 08/03/24 10:43 DL [id number] 08/03/24 10:53 DL Document 08/10/24 08:30 KW [id number] 08/10/24 08:35 KW Document 08/17/24 08:26 DL [id number] 08/17/24 08:30 DL 07/27/24 08/03/24 08/10/24 11:09 10:43 08:30 - Today's Visit Information Type of service Follow-up Visit Follow-up Visit Follow-up Visit (Physician/ELECTRIFIER OPERATOR (Physician/ELECTRIFIER OPERATOR (Physician/ELECTRIFIER OPERATOR ) ) ) Arrival Mode Ambulatory Ambulatory Ambulatory Transfer Assistance Transfer Board None Patient Identification Verified (Name & Yes Yes Yes ) Patient Requires Transmission-Based No No Precautions Finger Stick Blood Sugar(mg/dl) (if 124 indicated): Blood Sugar Done During this Visit Vital Signs Temperature (97.8 F-99.1 F) 96.8 F L 97.4 F L 97.1 F L Temperature Source Temporal Temporal Temporal Pulse Rate (60-100) 73 104 H 95 Pulse Location Monitor Monitor Monitor Respiratory Rate (12-18) 15 20 H 18 Respiratory rate source Observation Observation Observation Oxygen Delivery Method Room Air Blood Pressure (90/60-120/80) 118/60 132/73 H 120/69 Blood Pressure Mean (mm Hg) 79 92 86 Source Monitor Monitor Monitor Position Semi-Fowlers Blood Pressure Location Left Arm History Since Last Visit- (Skip if this is Patient's initial visit) Have you changed medications since your No No last visit? Any new allergies or adverse reactions No No Had a fall/change in ADL's that may No No increase risk of falls Signs or symptoms of abuse and/or No No neglect since last visit Have you been in the hospital since your No No last visit? Has dressing in place as prescribed Yes Yes Has compression in place as prescribed Yes Yes Has offloadiing in place as prescribed N/A Yes Experienced any changes in pain level or No No management Left Footwear Regular Shoe Right Footwear Regular Shoe Pain Scale: 0-10 Numeric Is Patient Pain Free? Yes Yes Yes 08/17/24 08:26 - Today's Visit Information Type of service Follow-up Visit (Physician/ELECTRIFIER OPERATOR ) Arrival Mode Ambulatory Transfer Assistance None Patient Identification Verified (Name & Yes ) Patient Requires Transmission-Based No Precautions Finger Stick Blood Sugar(mg/dl) (if indicated): Blood Sugar Vital Signs Temperature (97.8 F-99.1 F) 98.4 F Temperature Source Temporal Pulse Rate (60-100) 85 Pulse Location Monitor Respiratory Rate (12-18) 18 Respiratory rate source Observation Oxygen Delivery Method Blood Pressure (90/60-120/80) 110/62 Blood Pressure Mean (mm Hg) 78 Source Monitor Position Blood Pressure Location History Since Last Visit- (Skip if this is Patient's initial visit) Have you changed medications since your No last visit? Any new allergies or adverse reactions No Had a fall/change in ADL's that may No increase risk of falls Signs or symptoms of abuse and/or No neglect since last visit Have you been in the hospital since your No last visit? Has dressing in place as prescribed Yes Has compression in place as prescribed Yes Has offloadiing in place as prescribed Yes Experienced any changes in pain level or No management Left Footwear Right Footwear Surgical Shoe with pressure relief insole Pain Scale: 0-10 Numeric Is Patient Pain Free? Yes WC - Nurse 1 - General Ulcer Measurement Start: 07/24/24 08:54 Freq: Status: Active Protocol: Activity Type Activity Date Activity User E-sign Co-sign Detail Recorded Client Recorded Date Recorded By Document 07/27/24 11:09 DL [id number] 07/27/24 11:15 DL Document 08/03/24 10:43 DL [id number] 08/03/24 10:53 DL Document 08/10/24 08:30 KW [id number] 08/10/24 08:35 KW Document 08/17/24 08:26 DL [id number] 08/17/24 08:30 DL 07/27/24 08/03/24 08/10/24 11:09 10:43 08:30 Wound Center Nurse 1 #7- R PLANTAR FOOT -Current Size (cm) - Length 0.1 0.1 -Current Size (cm) - Width 0.1 0.1 -Current Size (cm) - Depth 0.1 0 -Total Square Cm 0.01 0.01 -Date of Last Picture (Recall this 08/10/24 field) -Photo Taken Yes -Exudate Amt None Present -Wound Margin -Granulation Amt None Present (0 %) -Granulation Quality -Necrosis Amt None Present (0 %) -Structure Exposed N/A -Texture (Marie-wound Skin Appearance) Callus, Assessed Localized Edema ,Scarring -Moisture (Marie-wound Skin Appearance) Dry/Scaly Assessed -Color (Marie-wound Skin Appearance) No Abnormality Assessed -Temperature (Marie-wound Skin No Abnormality No Abnormality Appearance) (Pt Warm) (Pt Warm) -Tenderness on Palpation (Marie-wound No No Skin Appearance) -Ulcer Cleansing Soap and Water Soap and Water -Foul Odor after Cleansing No -Wound Comment(s) Sutures intact. sutures intact Painful this morning. #5 RDorsal/Anterior Ankle -Current Size (cm) - Length 1.8 1.2 1.2 -Current Size (cm) - Width 1.1 1.5 1.5 -Current Size (cm) - Depth 0.1 0.1 0.1 -Total Square Cm 1.98 1.80 1.80 -Date of Last Picture (Recall this 08/10/24 field) -Photo Taken Yes Yes -Exudate Amt Medium Medium Small -Exudate Type Serosanguineous Serosanguineous -Wound Margin Distinct, Distinct, Distinct, Outline Outline Outline Attached Attached Attached -Granulation Amt Small (1-33%) None Present (0 Small (1-33%) %) -Granulation Quality L[place] Hyper- Hyper- granulation granulation, [place],Red -Necrosis Amt Large (67-100%) Large (67-100%) Large (67-100%) -Necrotic Tissue Type Adherent Slough Adherent Slough Adherent Slough -Structure Exposed N/A N/A -Texture (Marie-wound Skin Appearance) Localized Edema Localized Edema Assessed ,Scarring ,Scarring -Moisture (Marie-wound Skin Appearance) Maceration No Abnormality Assessed, Maceration -Color (Marie-wound Skin Appearance) No Abnormality No Abnormality Assessed -Temperature (Marie-wound Skin No Abnormality No Abnormality No Abnormality Appearance) (Pt Warm) (Pt Warm) (Pt Warm) -Tenderness on Palpation (Marie-wound No No Skin Appearance) -Ulcer Cleansing Soap and Water Soap and Water Rinsed/ Irrigated with Saline -Foul Odor after Cleansing No No No -Anesthetic Used 5% Lidocaine 5% Lidocaine 5% Lidocaine Gel Gel Gel Right Calf (cm) 35.5 Right Ankle (cm) 21.4 08/17/24 08:26 Wound Center Nurse 1 #7- R PLANTAR FOOT -Current Size (cm) - Length 0.1 -Current Size (cm) - Width 0.1 -Current Size (cm) - Depth 0.1 -Total Square Cm 0.01 -Date of Last Picture (Recall this field) -Photo Taken Yes -Exudate Amt None Present -Wound Margin Distinct, Outline Attached -Granulation Amt Large (67-100%) -Granulation Quality [place] -Necrosis Amt None Present (0 %) -Structure Exposed N/A -Texture (Marie-wound Skin Appearance) Localized Edema ,Scarring -Moisture (Marie-wound Skin Appearance) No Abnormality -Color (Marie-wound Skin Appearance) No Abnormality -Temperature (Marie-wound Skin No Abnormality Appearance) (Pt Warm) -Tenderness on Palpation (Marie-wound Skin Appearance) -Ulcer Cleansing Soap and Water -Foul Odor after Cleansing No -Wound Comment(s) #5 RDorsal/Anterior Ankle -Current Size (cm) - Length 1.2 -Current Size (cm) - Width 1.5 -Current Size (cm) - Depth 0.1 -Total Square Cm 1.80 -Date of Last Picture (Recall this field) -Photo Taken Yes -Exudate Amt Medium -Exudate Type Serosanguineous -Wound Margin Distinct, Outline Attached -Granulation Amt None Present (0 %) -Granulation Quality -Necrosis Amt Medium (34-66%) -Necrotic Tissue Type Adherent Slough -Structure Exposed N/A -Texture (Marie-wound Skin Appearance) Localized Edema ,Scarring -Moisture (Marie-wound Skin Appearance) No Abnormality -Color (Marie-wound Skin Appearance) No Abnormality -Temperature (Marie-wound Skin No Abnormality Appearance) (Pt Warm) -Tenderness on Palpation (Marie-wound No Skin Appearance) -Ulcer Cleansing Soap and Water -Foul Odor after Cleansing No -Anesthetic Used 5% Lidocaine Gel Right Calf (cm) Right Ankle (cm) WC - Nurse 2 - General Ulcer CM Notes Start: 07/24/24 08:54 Freq: Status: Active Protocol: Activity Type Activity Date Activity User E-sign Co-sign Detail Recorded Client Recorded Date Recorded By Document 07/27/24 11:40 [facility] [id number] 07/27/24 12:26 BM Document 08/03/24 11:28 BM [id number] 08/03/24 11:37 BM Document 08/10/24 08:43 [facility] [id number] 08/10/24 09:08 BM Document 08/17/24 08:45 [facility] [id number] 08/17/24 09:02 BMF 07/27/24 08/03/24 08/10/24 11:40 11:28 08:43 Wound Center Nurse 2 #7- R PLANTAR FOOT -Time 11:49 11:34 -Procedure Performed No -Post Debridement (cm) - Length 0.1 0.1 -Post Debridement (cm) - Width 0.1 0.1 -Post Debridement (cm) - Depth 0.1 0.1 -Total Square (Post) (cm) 0.01 0.01 -Area of Debridement (cm) - Length 0.1 0.1 -Area of Debridement (cm) - Width 0.1 0.1 -Total Square (Area) (cm) 0.01 0.01 -Wound/Ulcer Outcome Not Healed Not Healed -Ulcer Cleansing Rinsed/ Irrigated with Saline -Foul Odor after Cleansing No -Bleeding Controlled with Pressure NA NA -Treatment Response Procedure Tolerated Well -Wound Comment(s) HEMATOMA sutures intact suture removal DRAINED #5 RDorsal/Anterior Ankle -Time 11:45 11:28 08:47 -Correct Patient Yes Yes Yes -Correct Side, Site, Position Yes Yes Yes -Correct Procedure Yes Yes Yes -Procedure Performed Yes Yes Yes -Type of Procedure Debridement Debridement Debridement -Clinical Debridement Subcutaneous Subcutaneous Subcutaneous -Tissue Removed Subcutaneous Subcutaneous Subcutaneous -Post Debridement (cm) - Length 1.7 1.3 1.5 -Post Debridement (cm) - Width 1.4 1.4 1.2 -Post Debridement (cm) - Depth 0.1 0.1 0.1 -Total Square (Post) (cm) 2.38 1.82 1.80 -Area of Debridement (cm) - Length 1.7 1.3 1.5 -Area of Debridement (cm) - Width 1.4 1.4 1.2 -Total Square (Area) (cm) 2.38 1.82 1.80 -Tunneling No No No -Undermining/Tunneling No No No -Circular Undermining No No No -Wound/Ulcer Outcome Not Healed Not Healed Not Healed -Ulcer Cleansing Rinsed/ Rinsed/ Rinsed/ Irrigated with Irrigated with Irrigated with Saline Saline Saline -Foul Odor after Cleansing No No No -Bioengineered Tissue No No No -Bleeding Controlled with Pressure,Silver Pressure Pressure Nitrate -Treatment Response Procedure Procedure Procedure Tolerated Well Tolerated Well Tolerated Well -Debridement - Subq, 1st 20sq cm Yes Yes Yes Pain Scale: 0-10 Numeric Is Patient Pain Free? Yes Yes Yes 08/17/24 08:45 Wound Center Nurse 2 #7- R PLANTAR FOOT -Time 08:56 -Procedure Performed No -Post Debridement (cm) - Length 0.1 -Post Debridement (cm) - Width 0.1 -Post Debridement (cm) - Depth 0.1 -Total Square (Post) (cm) 0.01 -Area of Debridement (cm) - Length 0.1 -Area of Debridement (cm) - Width 0.1 -Total Square (Area) (cm) 0.01 -Wound/Ulcer Outcome Not Healed -Ulcer Cleansing -Foul Odor after Cleansing -Bleeding Controlled with NA -Treatment Response -Wound Comment(s) #5 RDorsal/Anterior Ankle -Time 08:45 -Correct Patient Yes -Correct Side, Site, Position Yes -Correct Procedure Yes -Procedure Performed Yes -Type of Procedure Debridement -Clinical Debridement Subcutaneous -Tissue Removed Subcutaneous -Post Debridement (cm) - Length 1.4 -Post Debridement (cm) - Width 1.1 -Post Debridement (cm) - Depth 0.1 -Total Square (Post) (cm) 1.54 -Area of Debridement (cm) - Length 1.4 -Area of Debridement (cm) - Width 1.1 -Total Square (Area) (cm) 1.54 -Tunneling No -Undermining/Tunneling No -Circular Undermining No -Wound/Ulcer Outcome Not Healed -Ulcer Cleansing Rinsed/ Irrigated with Saline -Foul Odor after Cleansing No -Bioengineered Tissue No -Bleeding Controlled with Pressure -Treatment Response Procedure Tolerated Well -Debridement - Subq, 1st 20sq cm Yes Pain Scale: 0-10 Numeric Is Patient Pain Free? Yes - Nurse 3 - General Ulcer D/C NN Start: 07/24/24 08:54 Freq: Status: Active Protocol: Activity Type Activity Date Activity User E-sign Co-sign Detail Recorded Client Recorded Date Recorded By Document 07/25/24 11:15 JF [id number] 07/25/24 11:18 JF Document 07/27/24 12:44 CP [id number] 07/27/24 12:45 CP Document 08/03/24 12:00 DS [id number] 08/04/24 16:54 DS Edit Result 08/03/24 12:00 DS (1) [id number] 08/04/24 16:56 DS Document 08/10/24 09:20 KW [id number] 08/10/24 09:22 KW Document 08/17/24 09:29 ML [id number] 08/17/24 09:30 ML (1) #5 RDorsal/Anterior Ankle - Primary Dressing Applied Aquacel Extra => Aquacel Extra, => Collagen Powder - Other Dressing => hydrogel/ABD - Primary Dressing Covered/Secured with Dry Gauze,Dry => Dry Gauze & Roll Gauze & Roll Gauze => Gauze,Secured with ,Secured with Tape => Tape - Collagen Powder => 1 07/25/24 07/27/24 08/03/24 11:15 12:44 12:00 Wound Care Center Nurse 3 #7- R PLANTAR FOOT -Ulcer Cleansing -Other Dressing ABD -Primary Dressing Covered/Secured with Dry Gauze & Dry Gauze, Roll Gauze, Secured with Secured with Tape Tape -Wound Comment(s) SEBASTIAN #5 RDorsal/Anterior Ankle -Ulcer Cleansing -Primary Dressing Applied Aquacel Extra, Aquacel Extra, Collagen Powder Collagen Powder -Other Dressing HYDROGEL/ABD hydrogel/ABD -Primary Dressing Covered/Secured with Dry Gauze & Dry Gauze & Roll Gauze, Roll Gauze, Secured with Secured with Tape Tape -Aquacel Extra 1 1 -Aquacel AG 4x4 -Collagen Powder 1 1 RLE -Compression Wrap Pain Scale: 0-10 Numeric Is Patient Pain Free? Yes Yes Yes WC - Visit Discharge Discharge Condition Stable Stable Stable Ambulatory Status Ambulatory Ambulatory Ambulatory Transportation Private Auto Private Auto Medication Reconcilliation completed & No provided to patient/care provider Clinical Summary of Care Provided Yes 08/10/24 08/17/24 09:20 09:29 Wound Care Center Nurse 3 #7- R PLANTAR FOOT -Ulcer Cleansing Rinsed/ Irrigated with Saline -Other Dressing puracol powder BETADINE with hydrogel, using pts -Primary Dressing Covered/Secured with Dry Gauze,Dry Dry Gauze & Gauze & Roll Roll Gauze, Gauze,Secured Secured with with Tape Tape -Wound Comment(s) #5 RDorsal/Anterior Ankle -Ulcer Cleansing Rinsed/ Irrigated with Saline -Primary Dressing Applied Aquacel AG 4x4, Collagen Powder -Other Dressing aquacel extra, using pts -Primary Dressing Covered/Secured with Dry Gauze Dry Gauze & Roll Gauze, Secured with Tape -Aquacel Extra -Aquacel AG 4x4 1 -Collagen Powder 1 RLE -Compression Wrap Sebastian Wrap Sebastian Wrap Pain Scale: 0-10 Numeric Is Patient Pain Free? Yes 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 (2) Type 2 diabetes mellitus with diabetic polyneuropathy: CODE(S): E11.42 - Type 2 diabetes mellitus with diabetic polyneuropathy QUALIFIERS: Diabetes mellitus detention insulin use: with detention use Qualified Code(s): E11.42 - Type 2 diabetes mellitus with diabetic polyneuropathy; Z79.4 - retirement (current) use of insulin (3) Charcot's joint of right foot: CODE(S): M14.671 - Charcot's joint, right ankle and foot (4) Type 2 diabetes mellitus with foot ulcer: CODE(S): E11.621 - Type 2 diabetes mellitus with foot ulcer; L97.509 - Non-pressure chronic ulcer of other part of unspecified foot with unspecified severity QUALIFIERS: Diabetes mellitus termite control representative insulin use: with termite control representative use Qualified Code(s): E11.621 - Type 2 diabetes mellitus with foot ulcer; L97.509 - Non-pressure chronic ulcer of other part of unspecified foot with unspecified severity; Z79.4 - medical terminologist (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 DOS 02/10/2024 She is 6 months out of surgery. Cicatrix at incision sites medial foot and anterior leg with no signs of infection. Ulceration dorsal foot continues granulating in well versus her previous visit. She continues healing well at this time and continues HBO dives following tube placement. Ulceration predebridement measures 1.3 cm x 1.0 cm x 0.1 cm Ulceration did undergo debridement as noted on clinical panel above. Postdebridement measurements 1.4 cm x 1.1 cm x 0.1 cm. Has completed all 10 applications of EpiFix #10. Collagen powder moistened with hydrogel applied to the ulcerative bed today. Aquacel Ag and DSD applied. She is to change dressing daily. Her area of previous ulceration to the plantar foot with subdermal hemorrhaging is improved. Previous hematoma was expressed. Her scant hyperkeratosis at the plantar foot was debrided no expressible purulence from site. I previously discussed with her that I feel she is continuing progression of her new acute Charcot event most likely when she removed her boot to stand barefoot in the shower. Discussed reapplying the CAM boot for immobilization and continuing to stay off of her foot is much as possible over the next 3-6 weeks until consolidation can begin to occur. She is understanding of this. Ulceration demonstrates slight increase in size vs previous visit. Overall healing well and progressing towards healing of the dorsal foot ulceration. She still does demonstrate some plantar rubor right at site of Charcot arthropathy degeneration. There is no expressible purulence. But she does cite recent dental work prior to her starting antibiotic and with active Charcot hematogenous spread remains possible thus she will continue her current oral antibiotic with the addition of Augmentin 500 mg twice daily x 14 days. Labs were ordered 08/10/24 in addition to updated x-ray of the right foot. WBC from 08/10/2024 is 12.7, ESR 36, CRP 89.20. Radiographs from 08/10/2024 do demonstrate increased osseous destruction with joint fragmentation about the Lisfranc joint and sclerosis consistent with Charcot arthropathy however osteomyelitis cannot be ruled out due to the dorsal foot wound and previous dental work. Will continue to monitor closely. She is understanding if she does develop signs and symptoms of infection which were discussed with her today she is to report to the ED for IV antibiotics as she would have failed outpatient oral antibiotic therapy. I did discuss the labs in detail with her today. She does report some improvement with the additional antibiotic. Discussed obtaining MRI in outpatient setting for further evaluation of the right foot. She is in agreement. This was ordered and patient would like to obtain at the mobile MRI unit at [facility]. She was approved for EpiFix, completed all 10 applications. Due to her acute Charcot event placing her at increased risk for infection she was started on oral antibiotic. Rx doxycycline 100 mg twice daily x 14 days, levofloxacin 750 mg p.o. daily x 14 days, Diflucan 150 mg tablet every 72 hours x 3 doses as she does get candidiasis when taking oral antibiotic. She was instructed to refill both antibiotics for continued coverage with her Augmentin. ABX stop date 08/24/2024 Will be permitted to [facility] Has completed all HBO dives. HgbA1c during hospital admission was 11.3% on 02/15/2024. Sugars have been well controlled following approval of insulin on new insurance. Current HgbA1c is 6.8% on 08/10/24. The following work up and care recommendations were made: Dressing: Collagen powder moistened with hydrogel, Clinithink Ag, dry sterile dressing right foot. Change daily Wash: Soap and water Tissue growth optimization: Collagen powder and hydrogel Offload: Nonweightbearing to the right lower extremity Vascular: DP and PT pulses palpable with adequate capillary fill time. Vascular status not impacting healing at this time. Edema: Edema well-controlled. Will continue with Tubigrip stocking application Infection: No signs of infection. Currently on IV antibiotics via PICC line. Will continue daptomycin and Unasyn per ID Pain: No pain to the ulcerative site secondary to diabetic peripheral polyneuropathy Host factors: DM type II with peripheral polyneuropathy, uncontrolled. Charcot foot right foot At this time prognosis is good and she continues healing well. However her Charcot is complicating her healing. Will continue to monitor for infection as she has had a history of this. I answered all the patient's questions. To return to the wound healing center in 1 week or call sooner if the patient has any questions or concerns.
--- NOTE | 2024-08-18 09:24 | WC ---
PHOTO 08/17/24 RIGHT PLANTAR
--- NOTE | 2024-08-18 09:26 | WC ---
PHOTO 08/17/24 RIGHT DORSAL
== END 2024-08-21 23:59 | disposition home or self-care (01) ==
LOC: WC 08:30
PROVIDERS: PCP Family Medicine; Referring Provider Student in an Organized Health Care Education/Training Program; Visit Provider Student in an Organized Health Care Education/Training Program
DX: E11.621 Type 2 diabetes mellitus with foot ulcer (principal); E11.622 Type 2 diabetes mellitus with other skin ulcer; L97.312 Non-pressure chronic ulcer of right ankle with fat layer exposed; L97.512 Non-pressure chronic 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; E11.610 Type 2 diabetes mellitus with diabetic neuropathic arthropathy; Z79.4 Long term (current) use of insulin; E11.42 Type 2 diabetes mellitus with diabetic polyneuropathy
CPT/HCPCS: 11042; 36415; 73630; 82962; 85025; 85652; 86140; 99183; 99211; G0277; G0463

== ENCOUNTER 2024-08-28 11:48 | Emergency (ER) | payer MEDICAID, SELFPAY ==
[2024-08-28] VITALS (7 sets, daily range): BP systolic 109–120; BP diastolic 65–78; PULSE 64–98; RESP 16–18; TEMP 36.7–37.1; O2SAT 95–100; BMI 28.7
--- NOTE | 2024-08-28 12:21 | EDS_ITS ---
HPI <RAMIRO Barcenas - Last Filed: 08/28/24 20:03> History of Present Illness Chief Complaint: Abn Labs Narrative Narrative: 58-year-old female with PMH of DM2, Charcot's foot presents with concern for right foot infection. About 1 month ago she developed intermittent fevers anywhere from 100.4 up to 103 ?F. She does have multiple surgeries with Dr. Lewis, most recently in January 2024. She has a chronic postsurgical wound which has gradually improved and is now a dime sized area of ulceration. However a month ago she felt her bones shift and she states Dr. Lewis has been draining blood from the plantar surface of her foot. She was on 3 an tibiotics?Levaquin, amoxicillin, doxycycline and just finished the latter 2 over the last few days. She is still having fevers and generally does not feel well. She had blood work drawn at the end of last week and it returned with an elevated white blood cell count of 17 so she was instructed to come to the ED. PFSH <RAMIRO Barcenas - Last Filed: 08/28/24 20:03> [facility] Medical History (Updated 08/28/24 @ 20:03 by RAMIRO Barcenas) Type 2 diabetes mellitus with foot ulcer Hypotension Post-menopausal Back pain Injury of head and neck Dietary restriction Diabetes Former smoker Asthma Chronic ulcer of right foot due to diabetes mellitus Non-pressure 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 Infectious tenosynovitis Cellulitis of right lower limb MRSA bacteremia Acute osteomyelitis of left foot Diabetes mellitus with diabetic polyneuropathy Charcot's joint of right foot Narcolepsy Sleep disorder Allergies Hypothyroidism History of MRSA infection Weakness COVID-19 DKA, type 2 Malnutrition 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 Home Medications ?Medication ?Instructions ?Recorded ?Last Taken ?Type montelukast 10 mg tablet 10 mg PO QHS allergy 7 Unknown History (Lisandroulair) ibuprofen 200 mg tablet (Advil) 400 mg PO BID pain Unknown History levocetirizine 5 mg tablet 1 tab PO DAILY PRN Allergie s 11/22/21 Unknown History levothyroxine 112 mcg tablet 112 mcg PO DAILY thyroi 0 02/09/24 Unknown History daptomycin 500 mg intravenous 750 mg IV DAILY 40 days 02/18/24 Unknown Rx solution acetaminophen 325 mg tablet 650 mg (2 x 325 mg) PO Q6H PRN PRN 02/20/24 Unknown Rx Pain 1-10 Or Fever >100.7 #0 tabs insulin glargine-yfgn 100 unit/mL 28 unit (0.28 mL) casiano bcut BID #0 mL 02/20/24 Unknown Rx (3 mL) subcutaneous pen amoxicillin 500 mg-potassium 1 tab PO BID 08/28/24 Unk nown History clavulanate 125 mg tablet armodafinil 250 mg tablet 150 mg PO DAILY narcalepsy 0 08/28/24 Unknown History baclofen 10 mg tablet 10 mg PO TID 08/28/24 Unknow n History estradiol 0.01% (0.1 mg/gram) 1 appful vaginal .twice a week 08/28/24 Unknown History vaginal cream estrogen liothyronine 25 mcg tablet 12.5 mcg PO DAILY 08/28/24 Unknown History Allergy/AdvReac Type Severity Reaction Status Date / Time clindamycin Allergy Hives Verified 08/28/24 11:49 pregabalin (From Lyrica) Allergy Swelling Verified 08/28/24 11:49 bee venom protein (honey bee) AdvReac Anaphylaxis Verified 08/28/24 11:49 vancomycin AdvReac Other Verified 08/28/24 11:49 Family History Father CVA (cerebral vascular accident) Clotting disorder Seizures Mother Osteoarthritis Other Charcot's joint of right foot Diabetes Heart disease Hypertension 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 alcohol intake: current alcohol intake frequency: holidays/special occasions only substance use type: does not use ROS <RAMIRO Barcenas - Last Filed: 08/28/24 20:03> ROS ED ROS Narrative Constitutional: Positive for fever, malaise. CVS: Negative for chest. Respiratory: Negative for shortness of breath. EXAM <RAMIRO Barcenas - Last Filed: 08/28/24 20:03> Physical Exam Narrative Exam Narrative: CONST: Patient sitting in no acute distress. EYES: Normal inspection. NECK: Normal inspection. RESP: No respiratory distress, CTAB. CVS: Regular rate and rhythm, no murmur, no gallop. SKIN: Color normal, no rash, warm, dry, intact. EXTREMITIES: Severe Charcot deformity of right foot. Chronic postsurgical scar of the mid tibia down to the mid foot. Over the foot there is a chronic superficial dime sized area of yellow ulceration. The medial aspect of the foot is warm to touch. The plantar surface has dry callused skin with no fluctuance or crepitus. No drainage. I cannot feel a palpable pulse due to the scar tissue but there is a biphasic DP pulse with Doppler. NEURO: Alert and answering questions appropriately. PSYCH: Normal affect. Const Vital Signs: 08/28/24 11:49 08/28/24 12:27 08/28/24 13:08 Temperature 98.2 F 98.2 F Temperature Source Oral Oral Pulse Rate 98 85 Respiratory Rate 18 16 Respiratory Effort Normal Non-Labored Respiratory Pattern Normal Blood Pressure 120/74 109/67 Blood Pressure Mean 89 81 Pulse Ox 96 95 Oxygen Delivery Method Room Air Room Air 08/28/24 13:48 08/28/24 14:07 08/28/24 16:00 Temperature 98.7 F 98.1 F Temperature Source Oral Oral Pulse Rate 64 69 76 Respiratory Rate 16 16 16 Respiratory Effort Respiratory Pattern Blood Pressure 109/67 114/67 112/73 Blood Pressure Mean 81 82 86 Pulse Ox 96 97 100 Oxygen Delivery Method Room Air Room Air Room Air 08/28/24 17:55 08/28/24 18:34 Temperature 98.1 F Temperature Source Pulse Rate 74 89 Respiratory Rate 18 18 Respiratory Effort Respiratory Pattern Blood Pressure 114/65 120/78 Blood Pressure Mean 81 92 Pulse Ox 97 97 Oxygen Delivery Method Room Air <Dr. Luis Miguel Mario, DO - Last Filed: 08/28/24 15:35> Physical Exam Const Vital Signs: 08/28/24 11:49 08/28/24 12:27 08/28/24 13:08 Temperature 98.2 F 98.2 F Temperature Source Oral Oral Pulse Rate 98 85 Respiratory Rate 18 16 Respiratory Effort Normal Non-Labored Respiratory Pattern Normal Blood Pressure 120/74 109/67 Blood Pressure Mean 89 81 Pulse Ox 96 95 Oxygen Delivery Method Room Air Room Air 08/28/24 13:48 08/28/24 14:07 08/28/24 16:00 Temperature 98.7 F 98.1 F Temperature Source Oral Oral Pulse Rate 64 69 76 Respiratory Rate 16 16 16 Respiratory Effort Respiratory Pattern Blood Pressure 109/67 114/67 112/73 Blood Pressure Mean 81 82 86 Pulse Ox 96 97 100 Oxygen Delivery Method Room Air Room Air Room Air 08/28/24 17:55 08/28/24 18:34 Temperature 98.1 F Temperature Source Pulse Rate 74 89 Respiratory Rate 18 18 Respiratory Effort Respiratory Pattern Blood Pressure 114/65 120/78 Blood Pressure Mean 81 92 Pulse Ox 97 97 Oxygen Delivery Method Room Air MDM <RAMIRO Barcenas - Last Filed: 08/28/24 20:03> MDM MDM Narrative Medical decision making narrative: History gathered from: Patient and daughter Differential includes but not limited to Charcot arthropathy, cellulitis, abscess, osteomyelitis Consults: Podiatry 58-year-old female with history of type 2 diabetes and right Charcot foot presents with concern for right foot infection. She reports intermittent fevers and right foot pain that has not improved on 3 different antibiotics from the kiln furniture caster. She has chronic surgical scars and a chronic small ulceration that does not look acutely infected. The plantar surface is callused and dry. Pulses are intact with Doppler. Labs show WBC of 10.0 and chronic anemia at 11.6. BMP has glucose of 273, otherwise unremarkable. No DKA. ESR 47. CRP 17.6. X-rays of right tibia/fibula and foot show Charcot arthropathy of the foot with soft tissue swelling?differential includes Charcot arthropathy versus infectious process like cellulitis or osteomyelitis. I consulted Dr. Lewis who recommended getting an MRI and this was done in the emergency department because if negative she can be dispositioned home. MRI shows Charcot foot with dorsal soft tissue swelling. It notes cellulitis of the plantar aspect and a 2.5 cm fluid collection worrisome for abscess. Dr. Lewis evaluated the patient at bedside and attempted to drain the area but there is no fluid present. He states maybe this is a developing hematoma but since her labs do not show sign of infection he recommended discharge. She will continue the Augmentin he prescribed and follow-up with the wound center on . She was discharged in stable condition. Lab Data Attestation: I reviewed the patient's lab results. Labs: Laboratory Results - last 24 hr 08/28/24 12:20 WBC 10.0 RBC 3.88 L Hgb 11.6 L Hct 36.1 L MCV 93.0 MCH 29.9 MCHC 32.1 RDW Std Deviation 45.5 H RDW Coeff of Amos 13.3 Plt Count 465 H MPV 9.2 Immature Gran % (Auto) 1.100 H Neut % (Auto) 65.7 Lymph % (Auto) 23.1 Brantley % (Auto) 3.5 Eos % (Auto) 5.9 H Baso % (Auto) 0.7 Absolute Neuts (auto) 6.6 Absolute Lymphs (auto) 2.31 Nucleated RBC % 0 ESR 47 H Sodium 140 Potassium 4.3 Chloride 105 Carbon Dioxide 21.1 Anion Gap 14 BUN 25 H Creatinine 0.94 Estim Creat Clear Calc 73.89 Est GFR (MDRD) Non-Af 70 BUN/Creatinine Ratio 26.7 H Glucose 273 H Calcium 8.9 C-React Prot Ext Range 17.60 H Radiography Diagnostic Testing: Clinical Impression(s) from Imaging Studies Foot X-Ray 08/28/24 13:16 IMPRESSION: No appreciable change from 08/10/2024. Redemonstrated findings suggestive of Charcot arthropathy involving the midfoot/hindfoot with significant soft tissue swelling, increased from more remote exam of 10/16/2022. Charcot arthropathy and infectious processes including osteomyelitis/cellulitis may appear similarly, and can coexist. Correlation with patient's presentation and exam is necessary. Reading Location: [facility] Tibia/Fibula X-Ray 08/28/24 13:16 IMPRESSION: No acute process detected. Reading Location: [facility] Lower Extremity MRI 08/28/24 14:06 IMPRESSION: Charcot foot with dorsal soft tissue swelling. Cellulitis of the plantar aspect of the foot with a 2.5 cm fluid collection worrisome for an abscess. Furthermore, sinus tract and other fluid collections more anteriorly and spreading infection can not be excluded. While extensive Charcot findings are present, osteomyelitis is felt to be less likely. Reading Location: [id number] ED attending interpretation of right tibia/fibula shows hardware intact without acute osseous findings. ED attending interpretation of right foot shows significant osseous erosion of the midfoot. <Dr. Luis Miguel Mario, DO - Last Filed: 08/28/24 15:35> [facility] Lab Data Labs: Laboratory Results - last 24 hr 08/28/24 12:20 WBC 10.0 RBC 3.88 L Hgb 11.6 L Hct 36.1 L MCV 93.0 MCH 29.9 MCHC 32.1 RDW Std Deviation 45.5 H RDW Coeff of Amos 13.3 Plt Count 465 H MPV 9.2 Immature Gran % (Auto) 1.100 H Neut % (Auto) 65.7 Lymph % (Auto) 23.1 Brantley % (Auto) 3.5 Eos % (Auto) 5.9 H Baso % (Auto) 0.7 Absolute Neuts (auto) 6.6 Absolute Lymphs (auto) 2.31 Nucleated RBC % 0 ESR 47 H Sodium 140 Potassium 4.3 Chloride 105 Carbon Dioxide 21.1 Anion Gap 14 BUN 25 H Creatinine 0.94 Estim Creat Clear Calc 73.89 Est GFR (MDRD) Non-Af 70 BUN/Creatinine Ratio 26.7 H Glucose 273 H Calcium 8.9 C-React Prot Ext Range 17.60 H Radiography Diagnostic Testing: Clinical Impression(s) from Imaging Studies Foot X-Ray 08/28/24 13:16 IMPRESSION: No appreciable change from 08/10/2024. Redemonstrated findings suggestive of Charcot arthropathy involving the midfoot/hindfoot with significant soft tissue swelling, increased from more remote exam of 10/16/2022. Charcot arthropathy and infectious processes including osteomyelitis/cellulitis may appear similarly, and can coexist. Correlation with patient's presentation and exam is necessary. Reading Location: [id number] Tibia/Fibula X-Ray 08/28/24 13:16 IMPRESSION: No acute process detected. Reading Location[facility] Lower Extremity MRI 08/28/24 14:06 IMPRESSION: Charcot foot with dorsal soft tissue swelling. Cellulitis of the plantar aspect of the foot with a 2.5 cm fluid collection worrisome for an abscess. Furthermore, sinus tract and other fluid collections more anteriorly and spreading infection can not be excluded. While extensive Charcot findings are present, osteomyelitis is felt to be less likely. Reading Location: [id number] Treatment and Re-Evaluation :: I have personally performed a face to face assessment of the patient and have reviewed the ARIANNA Note. I performed a substantive portion of the visit including all aspects of the following. My cruz findings include: History: Patient presents with right foot pain and swelling that has been getting worse. Patient had outpatient labs drawn 5 days ago and her white blood cell count increased to 17 at that time. Patient states she was told come to the emergency department today for further evaluation. Patient denies any fevers or chills. Patient describes her pain as stabbing. Patient states it is worse when she moves her foot. Patient does admit to some numbness and tingling in her lower legs bilaterally. Patient states this has been constant since her back surgery. Exam: Vital signs are stable. Patient is afebrile. Patient is in no acute distress. Musculoskeletal exam reveals tenderness, edema, and mild erythema over the right foot. There is some mild warmth. There is no discharge or drainage. There is edema over the right foot. Range of motion was limited in all motions of the right foot secondary to pain. Sensation was diminished to light touch bilaterally in the lower extremities but is equal. Pedal pulses are equal bilaterally. Capillary refill is less than 2 seconds in all digits. Medical Decision Making: Differential diagnosis includes osteomyelitis, cellulitis, and diabetic foot wound. CBC will be obtained to assess for leukocytosis and anemia. Basic metabolic profile will be obtained to assess for electrolyte abnormality and renal function. Sed rate and CRP will be obtained to assess for inflammatory markers. Blood culture will be obtained to assess for sepsis. X-rays of the right foot and tibia and fibula will be obtained to assess for osteomyelitis. Patient was given a dose of Zosyn here. CBC was reviewed. There is a mild anemia with a hemoglobin of 11.6 and hematocrit of 36.1. Platelets were slightly elevated at 465. Basic metabolic profile was reviewed. Glucose was elevated at 273. Anion gap was normal. CO2 was normal. Sed rate was reviewed and was elevated at 47. CRP was reviewed and was elevated at 17.6. X-rays of the right foot were obtained. There are 3 views. On my independent interpretation, there is no acute fracture. There are changes consistent with Charcot foot. Osteomyelitis cannot be ruled out. Radiologist also interpreted the x-rays and agrees. X-rays of the tibia and fibula were obtained. There are 4 views. On my independent interpretation, there is no acute fracture. There is no evidence of osteomyelitis. Radiologist also interpreted the x-rays and agrees. Case was discussed with Dr. Lewis from podiatry. He recommended getting an MRI to assess for osteomyelitis. If the MRI is negative for osteomyelitis, patient will be discharged home. If the MRI is positive, patient will need to be admitted. Care of the patient was turned over to the oncoming physician pending MRI results. Discharge Plan Triage Chief Complaint: Abn Labs ED Midlevel Provider: Penelope Prtichett ED Provider: Alejandro Albright Dx/Rx/DC Orders Clinical Impression: Charcot arthropathy, Hx of type 2 diabetes mellitus Instructions: Treating Charcot Foot Prescriptions: No Action montelukast [Singulair] 10 MG tablet 10 mg PO QHS ibuprofen [Advil] 200 mg Tablet 400 mg PO BID levocetirizine 5 mg tablet 1 tab PO DAILY PRN (Reason: Allergies) levothyroxine 112 mcg tablet 112 mcg PO DAILY daptomycin 500 mg recon soln 750 mg IV DAILY 40 Days Rx Instructions: administer over 30 mins. Dx: MRSA bacteremia and osteomyelitis. Stop date 03/30/24. Weekly bmp, cbc, LFT, CK, and ESR. Fax to [phone]. Routine picc care per protocol. acetaminophen 325 mg Tablet 650 mg PO Q6H PRN PRN (Reason: Pain 1-10 Or Fever >100.7) Qty: 0 0RF insulin glargine-yfgn 100 unit/mL (3 mL) Insulin Pen 28 unit subcut BID Qty: 0 0RF liothyronine 25 mcg tablet 12.5 mcg PO DAILY estradiol 0.01 % (0.1 mg/gram) cream 1 appful vaginal .twice a week Rx Instructions: 1 appl bid wd and casiano amoxicillin-pot clavulanate 500-125 mg tablet 1 tab PO BID armodafinil 250 mg tablet 150 mg PO DAILY Rx Instructions: take 1 tab in am than may repeat again at noon if driving somewhere that will need to stay alert. baclofen 10 mg tablet 10 mg PO TID Primary Care Provider: Cuong Barros Referrals: Cuong Barros MD [Primary Care Provider] - Activity Restrictions/Additional Instructions: The MRI showed an area concerning for a fluid pocket but the kiln furniture caster tried to drain it and there was no significant fluid collection. Continue the amoxicillin prescribed by Dr. Lewis and follow-up with him and the wound care center. Print Language: Yoruba Disposition Disposition: Home, Self Care Discharge Date/Time: 08/28/24 18:35
[2024-08-28 12:44] LABS: Absolute Lymphocyte Count 2.31 X10^3/uL (0.83-4.51); Absolute Neutrophil Count 6.6 X10^3/uL (2.0-7.7); Basophil# 0.07 X10^3/uL; Basophil% 0.7 % (0-1); Eosinophil# 0.59 X10^3/uL; Eosinophils% 5.9 % (0-5); Hematocrit 36.1 % (37-47); Hemoglobin 11.6 g/dL (12.0-15.0); Lymphocyte # 2.31 X10^3/ul (0.83-4.51); Lymphocyte % 23.1 % (19-41); Mean Corp Hgb Conc 32.1 g/dL (32-36); Mean Corpuscular Hgb 29.9 pg (27.0-32.0); Mean Platelet Vol. 9.2 fl (6.2-12.0); Monocyte# 0.35 X10^3/uL; Monocyte% 3.5 % (0-10); NRBC Flagged by Analyzer 0 % (0-5); Neutrophil # 6.57 X10^3/uL (2.7-7.7); Neutrophil % 65.7 % (47-70); Platelet Count 465 K/mm3 (150-450); RBC Distribution Width CV 13.3 % (11.6-14.6); RBC Distribution Width SD 45.5 fl (35.1-43.9); Red Blood Count 3.88 M/mm3 (4.2-5.4)
[2024-08-28 12:57] LABS: Erythrocyte Sedimentation Rate 47 mm/hr (0-30)
[2024-08-28] MEDS: Piperacil/Tazobactam 3.375 GM in 0.9% Normal Saline (50mL MB+) 50 ML IV (13:02)
--- NOTE | 2024-08-28 13:16 | RAD_ITS ---
PROCEDURE: FOOT MIN 3 VIEWS (RADFO), 08/28/2024 REASON FOR EXAM: PAIN TECHNIQUE: AP, lateral, and oblique views of the RIGHT foot were obtained. COMPARISON: 08/10/2024 FINDINGS: Redemonstrated ORIF distal fibula. Demineralization. Similar dysmorphic appearance of the joints of the midfoot and hindfoot with lucency, irregular areas of bony sclerosis/hypertrophy, greatest along the 1st and 2nd TMT joints. Similar pes planus. Similar circumferential soft tissue swelling. Similar mild valgus deformity at the 1st IP joint. Similar diffuse joint space loss in the IP joints and 1st MTP. No visible/radiopaque foreign body identified. RAD/Foot min 3 Views IMPRESSION: No appreciable change from 08/10/2024. Redemonstrated findings suggestive of C harcot arthropathy involving the midfoot/hindfoot with significant soft tissue swelling, increased from more remote exam of 10/16. Charcot arthropathy and infectious processes including osteomyelitis/cellulitis may appear similarly, and can coex ist. Correlation with patient's presentation and exam is necessary. Reading Location: [id number]
--- NOTE | 2024-08-28 13:16 | RAD_ITS ---
EXAM: Tibia fibula two views CLINICAL HISTORY: Right leg pain COMPARISON: None. TECHNIQUE: PA and lateral radiographic images of the tibia and fibula are obtained. FINDINGS: Loop been previous open reduction and internal fixation of a distal fibula fracture with plate and screws. The hardware is intact and well-positioned. No obvious hardware complication. Bones are otherwise unremarkable showing normal mineralization, no articular abnormality. No fracture or dislocation RAD/Tibia & Fibula 2 Views IMPRESSION: No acute process detected. Reading Location: [facility]
[2024-08-28 13:19] LABS: Anion Gap 14 (5-15); BUN 25 mg/dL (4-19); BUN/Creat Ratio 26.7 RATIO (10-20); Calcium,Total 8.9 mg/dL (7.6-11.0); Carbon Dioxide 21.1 mmol/L (21.0-32.0); Chloride 105 mmol/L (98-108); Creatinine, Serum 0.94 mg/dL (0.70-1.20); EST Glomerular Filtration Rate 70 (>60); Estimated Creatinine Clearance 73.89 ml/min (50-250); Glucose 273 mg/dL (70-99); Potassium 4.3 mmol/L (3.3-5.1); Sodium Level 140 mmol/L (133-145)
--- NOTE | 2024-08-28 14:06 | MRI_ITS ---
EXAM: MRI right foot CLINICAL HISTORY: Foot pain COMPARISON: X-ray earlier today TECHNIQUE: Multiplanar spin echo magnetic resonance images of the right midfoot were obtained without the administration of intravenous gadolinium. FINDINGS: Dorsal soft tissue swelling. 2.5 cm thick-walled fluid collection at the plantar aspect of the foot may represent an abscess. Edema of the plantar fat musculature and myositis can not be excluded. Multiple small fluid collections deep to the foot musculature extending between the 1st and 2nd metatarsal bones which may represent ganglia or abscesses. Severe arthrosis and ankylosis of the entire midfoot consistent with Charcot joint. Associated bony destruction particularly at the tarsometatarsal joints with reactive marrow edema. However, findings are felt to likely represent arthropathy rather than osteomyelitis. MRI/Lower Ext/No Jt/w/o IMPRESSION: Charcot foot with dorsal soft tissue swelling. Cellulitis of the plantar aspect of the foot with a 2.5 cm fluid collection wor risome for an abscess. Furthermore, sinus tract and other fluid collections more anteriorly and spreading infection can not be excluded. While extensive Charcot findings are present, osteomyelitis is felt to be less likely. Reading Location: [id number]
--- NOTE | 2024-08-28 18:23 | CON.PCM_ITS ---
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 of insulin (4) Type 2 diabetes mellitus with foot ulcer: QUALIFIERS: Diabetes mellitus prison insulin use: with prison use Qualified Code(s): E11.621 - Type 2 diabetes mellitus with foot ulcer; L97.509 - Non-pressure chronic ulcer of other part of unspecified foot with unspecified severity; Z79.4 - terminal system operator (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 She did undergo radiograph 08/28/2024 demonstrating destruction of the bone and joints of the midfoot consistent with Charcot arthropathy. She also underwent MRI of the right foot for 08/28/2024 consistent with Charcot arthropathy. There is a 2.5 cm thick-walled fluid collection at the plantar aspect of the foot which was interpreted as possible abscess. I did review the MRI from this afternoon and have attempted aspiration from the plantar site to which only blood was expressible. This was consistent with 2 prior attempts of aspiration in the wound center last week. I did discuss all findings with the patient at bedside today and she does note she does feel better following dose of IV antibiotic and fluids. Patient would like to go home this evening. I have discussed with her that she may do so but will be continued to follow closely for monitoring and if signs change to return for admission. She is in agreement with this. Patient will continue local wound care in the wound care center for the dorsal ulceration and will continue her current antibiotic, oral Augmentin 500 mg twice daily and will finish out the remainder of the course. She will continue to wear the CAM walker boot for continued immobilization of the right foot. She will be seen in wound care center this , 08/31/24 with me for continued local wound care. HPI Consult Data Date of Consult: 08/28/24 HPI Narrative Reason for Consultation: Right foot swelling HPI Narrative: FREEMAN MOCTEZUMA, is a 58 F who presents to the [facility] ED on 08/28/2024 for right foot swelling and possible infection. Patient had been following with me in the wound care center over the last month with recent surgical date of 02/10/2024. She had completed previous HBO dives and was healing well until recent Charcot arthropathy event in which she had edema of the foot. She was started on oral doxycycline and levofloxacin and completed these courses and also had Augmentin added which she is currently still taking. Patient states she has developed intermittent fevers ranging between 100-103 over the last week. She did have white count of 12.1 two weeks ago and then subsequently underwent additional blood work demonstrating white count of 17 last week. She states that following discussion with her PCP she did go to the ED for further evaluation. [facility] Medical History (Updated 08/28/24 @ 18:19 by RAMIRO Barcenas) Type 2 diabetes mellitus with foot ulcer Hypotension Post-menopausal Back pain Injury of head and neck Dietary restriction Diabetes Former smoker Asthma Chronic ulcer of right foot due to diabetes mellitus Non-pressure 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 Infectious tenosynovitis Cellulitis of right lower limb MRSA bacteremia Acute osteomyelitis of left foot Diabetes mellitus with diabetic polyneuropathy Charcot's joint of right foot Narcolepsy Sleep disorder Allergies Hypothyroidism History of MRSA infection Weakness COVID-19 DKA, type 2 Malnutrition 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 Home Medications ?Medication ?Instructions ?Recorded ?Last Taken ?Type montelukast 10 mg tablet 10 mg PO QHS allergy 7 Unknown History (Singulair) ibuprofen 200 mg tablet (Advil) 400 mg PO BID pain Unknown History levocetirizine 5 mg tablet 1 tab PO DAILY PRN Allergie s 11/22/21 Unknown History levothyroxine 112 mcg tablet 112 mcg PO DAILY thyroi 0 02/09/24 Unknown History daptomycin 500 mg intravenous 750 mg IV DAILY 40 days 02/18/24 Unknown Rx solution acetaminophen 325 mg tablet 650 mg (2 x 325 mg) PO Q6H PRN PRN 02/20/24 Unknown Rx Pain 1-10 Or Fever >100.7 #0 tabs insulin glargine-yfgn 100 unit/mL 28 unit (0.28 mL) casiano bcut BID #0 mL 02/20/24 Unknown Rx (3 mL) subcutaneous pen amoxicillin 500 mg-potassium 1 tab PO BID 08/28/24 Unk nown History clavulanate 125 mg tablet armodafinil 250 mg tablet 150 mg PO DAILY narcalepsy 0 08/28/24 Unknown History baclofen 10 mg tablet 10 mg PO TID 08/28/24 Unknow n History estradiol 0.01% (0.1 mg/gram) 1 appful vaginal .twice a week 08/28/24 Unknown History vaginal cream estrogen liothyronine 25 mcg tablet 12.5 mcg PO DAILY 08/28/24 Unknown History Allergy/AdvReac Type Severity Reaction Status Date / Time clindamycin Allergy Hives Verified 08/28/24 11:49 pregabalin (From Lyrica) Allergy Swelling Verified 08/28/24 11:49 bee venom protein (honey bee) AdvReac Anaphylaxis Verified 08/28/24 11:49 vancomycin AdvReac Other Verified 08/28/24 11:49 Family History Father CVA (cerebral vascular accident) Clotting disorder Seizures Mother Osteoarthritis Other Charcot's joint of right foot Diabetes Heart disease Hypertension 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 alcohol intake: current alcohol intake frequency: holidays/special occasions only substance use type: does not use ROS Constitutional Constitutional: Reports fever(s); Denies chills or fatigue Eyes Eyes: Denies change in vision, diplopia or loss of vision ENT HEENT: Denies dysphagia, nasal congestion or rhinorrhea Cardiovascular Cardiovascular: Denies chest pain, claudication or palpitations Respiratory/Chest Respiratory/Chest: Denies cough, dyspnea or wheezing Gastrointestinal Gastrointestinal: Denies abdominal pain, constipation, diarrhea, nausea or vomiting Genitourinary Genitourinary: Denies dysuria, hematuria or urinary urgency Musculoskeletal Musculoskeletal: Denies joint pain, joint stiffness or joint swelling Integumentary Integumentary: Denies jaundice, lesions or rash Neurologic Neurologic: Denies dizziness, numbness or seizures Psychiatric Psychiatric: Denies anxiety or depression Endocrine Endocrinology: Denies cold intolerance, heat intolerance, polydipsia, polyphagia or polyuria Hematologic/Lymphatic Hematologic/Lymphatic: Denies easy bleeding or easy bruising Allergic/Immunologic Allergic/Immunologic: Denies urticaria Physical Exam Const alert, oriented x3 and no apparent distress General Appearance: cooperative HEENT normocephalic Eyes General Eye: normal appearance of both eyes Neck General: normal visual inspection Lymph Lymphatic: no lymphadenopathy noted and no lymphedema noted Resp normal respiratory effort Cardio regular rate and regular rhythm Extremity no calf tenderness Extremity Narrative: Right lower extremity: Vascular: DP and PT pulses palpable. CFT is less than 4 secs to digits. Normal temperature gradient. Hair growth is absent to digits Neurologic: Gross sensation intact. Protective sensation is absent to the foot consistent with diabetic peripheral polyneuropathy. Musculoskeletal: Muscle strength 5/5 age-appropriate. There is a Charcot arthropathy deformity of the Lisfranc joint with rocker-bottom foot deformity. Decreased range of motion of the ankle joint dorsiflexion with knee extended without pain or crepitus. No pain to palpation about the ulcerative site dorsal foot. Dermatologic: There is moderate edema of the foot secondary to Charcot arthropathy. There is also a dime sized ulceration to the dorsal aspect of the right foot, which is healing. Ulceration demonstrates mixed fiber granular layer. No signs of infection. Skin no rashes or lesions noted and skin turgor normal Neuro moves all extremities Lab / Micro Data 08/28/24 12:20 08/28/24 12:20 Labs: Laboratory Results - last 24 hr 08/28/24 12:20: WBC 10.0, RBC 3.88 L, Hgb 11.6 L, Hct 36.1 L, MCV 93.0, MCH 29.9, MCHC 32.1, RDW Std Deviation 45.5 H, RDW Coeff of Amos 13.3, Plt Count 465 H, MPV 9.2, Immature Gran % (Auto) 1.100 H, Neut % (Auto) 65.7, Lymph % (Auto) 23.1, [place] % (Auto) 3.5, Eos % (Auto) 5.9 H, Baso % (Auto) 0.7, Absolute Neuts (auto) 6.6, Absolute Lymphs (auto) 2.31, Nucleated RBC % 0, ESR 47 H, Sodium 140, Potassium 4.3, Chloride 105, Carbon Dioxide 21.1, Anion Gap 14, BUN 25 H, Creatinine 0.94, Estim Creat Clear Calc 73.89, Est GFR (MDRD) Non-Af 70, B UN/Creatinine Ratio 26.7 H, Glucose 273 H, Calcium 8.9, C-React Prot Ext Range 17.60 H Imaging Radiology Impression Foot X-Ray 08/28/24 13:16 IMPRESSION: No appreciable change from 08/10/2024. Redemonstrated findings suggestive of Charcot arthropathy involving the midfoot/hindfoot with significant soft tissue swelling, increased from more remote exam of 10/16/2022. Charcot arthropathy and infectious processes including osteomyelitis/cellulitis may appear similarly, and can coexist. Correlation with patient's presentation and exam is necessary. Reading Location: [facility] Tibia/Fibula X-Ray 08/28/24 13:16 IMPRESSION: No acute process detected. Reading [facility] Lower Extremity MRI 08/28/24 14:06 IMPRESSION: Charcot foot with dorsal soft tissue swelling. Cellulitis of the plantar aspect of the foot with a 2.5 cm fluid collection worrisome for an abscess. Furthermore, sinus tract and other fluid collections more anteriorly and spreading infection can not be excluded. While extensive Charcot findings are present, osteomyelitis is felt to be less likely. Reading Location: [id number]
== END 2024-08-28 18:35 | disposition home or self-care (01) ==
PROVIDERS: Physician Assistant; Emergency Provider Emergency Medicine; PCP Family Medicine; Visit Provider Emergency Medicine
DX: E11.610 Type 2 diabetes mellitus with diabetic neuropathic arthropathy (principal); E11.42 Type 2 diabetes mellitus with diabetic polyneuropathy; Z79.4 Long term (current) use of insulin; E11.628 Type 2 diabetes mellitus with other skin complications; L03.115 Cellulitis of right lower limb; Z86.16 Personal history of COVID-19; Z87.891 Personal history of nicotine dependence
CPT/HCPCS: 73590; 73630; 73718; 80048; 85025; 85652; 86140; 87040; 96365; 99284; A4216

== ENCOUNTER 2024-09-14 08:30 | Outpatient (RCR) | payer MEDICAID, SELFPAY ==
[2024-08-22 00:55] VITALS: BP 110/62; BP 115/62; BP 143/73; PULSE 103; PULSE 84; PULSE 85; RESP 16; RESP 18; TEMP 35.5; TEMP 36.2; TEMP 36.9
[2024-08-24 08:38] VITALS: BP 116/68; PULSE 102; RESP 18; TEMP 36.4
--- NOTE | 2024-08-24 13:38 | PCM.WC.PN ---
History of Present Illness Date of Service: 08/24/24 Chief Complaint: Diabetic right foot ulceration History of Wound: Ms. Falk is a 58-year-old currently being seen at the wound center for right foot/ankle ulcer. She is currently undergoing hyperbaric oxygen therapy for the diabetic foot ulceration involving her right foot. She has been under the care of Dr. Jason Lewis, Football Coach, relative to the management of her diabetic foot ulceration. Review of the patient's medical record indicates that she has tolerated HBOT well and there has been corresponding significant improvement in ulcer. 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 Blood glucose readings have been largely stable. No chest pain, tightness, blurry vision or concerns reported. Subjective Subjective This is a 58-year-old female who continues to follow with the wound care center for right dorsal foot ulceration. She had previously undergone I&D on 02/10/2024 of the right foot. Continues healing of her dorsal ulceration and is changing dressing daily. She feels ulceration is improving and looking better each week but still experiencing continued swelling post-Charcot event and had recent fall in her house which lead to additional swelling in the foot. Continues to rest her foot as much as possible and is immobilizing in CAM boot but foot remains unstable foot. States she continues oral antibiotic as instructed. Denies constitutional symptoms. Denies further complaints. Objective Data Objective Data Vital Signs: Vital Signs Temp Pulse Resp BP O2 Del Method 97.6 F L 102 H 18 116/68 Room Air 08/24/24 08:38 08/24/24 08:38 08/24/24 08:38 08/24/24 08:38 08/24/24 08:38 Oxygen Delivery Method Room Air Physical Exam Const alert, oriented x3 and no apparent distress General Appearance: cooperative HEENT normocephalic Eyes General Eye: normal appearance of both eyes Neck General: normal visual inspection Lymph Lymphatic: no lymphadenopathy noted and no lymphedema noted Resp normal respiratory effort Cardio regular rate and regular rhythm Extremity no calf tenderness Extremity Narrative: Right lower extremity: Vascular: DP and PT pulses palpable with adequate capillary fill time to the digits. Normal temperature gradient. Hair growth is absent to the digits. Neurologic: Gross sensation intact. Absent protective sensation consistent with diabetic peripheral polyneuropathy Musculoskeletal: No pain to palpation about the ulcerative site secondary to diabetic peripheral polyneuropathy. There is a Charcot foot deformity noted of the right foot. No pain to palpation about the ulcerative site. Dermatologic: Incision site medial foot healed with cicatrix. No signs of infection. Incision site anterior leg with cicatrix proximally and distally. No signs of infection. There is a full thickness ulceration dorsally along the midfoot medial to the incision site with mixed fibrogranular tissue and some hypergranular tissue. Ulceration continues improvement with reduction in size and is progressing well. Ulceration site demonstrates no signs of infection. Plantar foot demonstrates scant hyperkeratosis with some plantar edema secondary to continued Charcot degenerative arthropathy progression. No purulence expressible from plantar foot. Skin no rashes or lesions noted and skin turgor normal Neuro moves all extremities Debridement Note Debridement Note Wound debrided: Right foot Laterality: Right Wound Grade/Stage: Gonzalez stage III Type of Debridement: Excisional debridement Anesthesia Used: 5% Lidocaine Gel Depth: Down to and including healthy tissue and in the subcutaneous layer Percentage of wound debrided: 100 Instrument Used: #15 blade Tissue Removed: Fibrous, devitalized subcutaneous, biofilm, slough Severity: Fat Layer Exposed Amount of bleeding with debridement: Mild Bleeding Controlled with: Compression and gauze Patient tolerated procedure: Patient tolerated procedure well Post-Debridement Measurements and Additional Note: Post-Debridement Measurements/Treatment - Nurse 1 - General Ulcer Assessment Start: 08/24/24 08:37 Freq: Status: Active Protocol: .LOWEXT Activity Type Activity Date Activity User E-sign Co-sign Detail Recorded Client Recorded Date Recorded By Document 08/24/24 08:38 [id number] 08/24/24 08:44 KW 08/24/24 08:38 - Today's Visit Information Type of service Follow-up Visit (Physician/CHILD PROTECTIVE INVESTIGATOR ) Arrival Mode Ambulatory, Walker Patient Identification Verified (Name & Yes ) Patient Requires Transmission-Based No Precautions Safety Precautions Fall Prevention Vital Signs Temperature (97.8 F-99.1 F) 97.6 F L Temperature Source Temporal Pulse Rate (60-100) 102 H Pulse Location Monitor Respiratory Rate (12-18) 18 Respiratory rate source Observation Oxygen Delivery Method Room Air Blood Pressure (90/60-120/80) 116/68 Blood Pressure Mean (mm Hg) 84 Source Monitor Position Sitting Blood Pressure Location Right Arm History Since Last Visit- (Skip if this is Patient's initial visit) Left Footwear Regular Shoe Right Footwear Removable Cast Walker/Walking Boot Pain Scale: 0-10 Numeric Is Patient Pain Free? No RLE -Description Throbbing, Aching -Intensity 6 -Duration (hours) Chronic -Pain Behavior No Change in Behavior -Alleviating Factors/Interventions Will continue to monitor, Emotional Support ALISSA - Nurse 1 - General Ulcer Measurement Start: 08/24/24 08:37 Freq: Status: Active Protocol: Activity Type Activity Date Activity User E-sign Co-sign Detail Recorded Client Recorded Date Recorded By Document 08/24/24 08:38 [email or web address] [id number] 08/24/24 08:44 KW 08/24/24 08:38 Wound Center Nurse 1 #7- R PLANTAR FOOT -Current Size (cm) - Length 0.1 -Current Size (cm) - Width 0.1 -Current Size (cm) - Depth 0.1 -Total Square Cm 0.01 -Date of Last Picture (Recall this 08/24/24 field) -Photo Taken Yes -Tunneling No -Undermining/Tunneling No -Circular Undermining No -Wound Margin Distinct, Outline Attached -Texture (Marie-wound Skin Appearance) Assessed -Moisture (Marie-wound Skin Appearance) Assessed -Color (Marie-wound Skin Appearance) Assessed -Ulcer Cleansing Soap and Water -Foul Odor after Cleansing No -Anesthetic Used 5% Lidocaine Gel #5 RDorsal/Anterior Ankle -Current Size (cm) - Length 1.0 -Current Size (cm) - Width 1.3 -Current Size (cm) - Depth 0.1 -Total Square Cm 1.30 -Date of Last Picture (Recall this 08/24/24 field) -Photo Taken Yes -Tunneling No -Undermining/Tunneling No -Circular Undermining No -Wound Margin Distinct, Outline Attached -Granulation Quality Hyper- granulation -Texture (Marie-wound Skin Appearance) Assessed -Moisture (Marie-wound Skin Appearance) Assessed -Color (Marie-wound Skin Appearance) Assessed -Ulcer Cleansing Soap and Water -Foul Odor after Cleansing No -Anesthetic Used 5% Lidocaine Gel ALISSA - Nurse 2 - General Ulcer CM Notes Start: 08/24/24 08:37 Freq: Status: Active Protocol: Activity Type Activity Date Activity User E-sign Co-sign Detail Recorded Client Recorded Date Recorded By Document 08/24/24 09:10 [facility] [id number] 08/24/24 09:31 [facility] 08/24/24 09:10 Wound Center Nurse 2 #7- R PLANTAR FOOT -Time 09:13 -Post Debridement (cm) - Length 0.1 -Post Debridement (cm) - Width 0.1 -Post Debridement (cm) - Depth 0.1 -Total Square (Post) (cm) 0.01 -Area of Debridement (cm) - Length 0.1 -Area of Debridement (cm) - Width 0.1 -Total Square (Area) (cm) 0.01 -Bleeding Controlled with Pressure #5 RDorsal/Anterior Ankle -Time 09:26 -Correct Patient Yes -Correct Side, Site, Position Yes -Correct Procedure Yes -Procedure Performed Yes -Type of Procedure Debridement -Clinical Debridement Subcutaneous -Tissue Removed Subcutaneous -Post Debridement (cm) - Length 1.3 -Post Debridement (cm) - Width 1.3 -Post Debridement (cm) - Depth 0.1 -Total Square (Post) (cm) 1.69 -Area of Debridement (cm) - Length 1.3 -Area of Debridement (cm) - Width 1.3 -Total Square (Area) (cm) 1.69 -Tunneling No -Undermining/Tunneling No -Circular Undermining No -Wound/Ulcer Outcome Not Healed -Ulcer Cleansing Rinsed/ Irrigated with Saline -Foul Odor after Cleansing No -Bioengineered Tissue No -Bleeding Controlled with Pressure -Treatment Response Procedure Tolerated Well -Debridement - Subq, 1st 20sq cm Yes Pain Scale: 0-10 Numeric Is Patient Pain Free? Yes - Nurse 3 - General Ulcer D/C NN Start: 08/24/24 08:37 Freq: Status: Active Protocol: Activity Type Activity Date Activity User E-sign Co-sign Detail Recorded Client Recorded Date Recorded By Document 08/24/24 09:50 DL [id number] 08/24/24 09:53 DL 08/24/24 09:50 Wound Care Center Nurse 3 #7- R PLANTAR FOOT -Ulcer Cleansing Rinsed/ Irrigated with Saline -Foul Odor after Cleansing No -Primary Dressing Covered/Secured with Dry Gauze & Roll Gauze, Secured with Tape #5 RDorsal/Anterior Ankle -Ulcer Cleansing Soap and Water -Foul Odor after Cleansing No -Primary Dressing Applied Aquacel Extra, Collagen Powder -Primary Dressing Covered/Secured with Dry Gauze & Roll Gauze, Secured with Tape -Other Covering ARMANDO -Aquacel Extra 1 -Collagen Powder 1 Treatment Response Procedure Tolerated Well Pain Scale: 0-10 Numeric Is Patient Pain Free? Yes WC - Visit Discharge Discharge Condition Stable Ambulatory Status Ambulatory, Walker Transportation Private [facility] Facility Type Home Health Orders Sent Yes Assessment/Plan Assessment/Plan (1) Non-pressure chronic ulcer of other part of right foot with fat layer exposed: CODE(S): L97.512 - Non-pressure chronic ulcer of other part of right foot with fat layer exposed (2) Type 2 diabetes mellitus with diabetic polyneuropathy: CODE(S): E11.42 - Type 2 diabetes mellitus with diabetic polyneuropathy QUALIFIERS: Diabetes mellitus senior care insulin use: with senior care use Qualified Code(s): E11.42 - Type 2 diabetes mellitus with diabetic polyneuropathy; Z79.4 - long term care administrator (current) use of insulin (3) Type 2 diabetes mellitus with foot ulcer: CODE(S): E11.621 - Type 2 diabetes mellitus with foot ulcer; L97.509 - Non-pressure chronic ulcer of other part of unspecified foot with unspecified severity QUALIFIERS: Diabetes mellitus senior care insulin use: with senior care use Qualified Code(s): E11.621 - Type 2 diabetes mellitus with foot ulcer; L97.509 - Non-pressure chronic ulcer of other part of unspecified foot with unspecified severity; Z79.4 - long term care administrator (current) use of insulin (4) Charcot's joint of right foot: CODE(S): M14.671 - Charcot's joint, right ankle and foot PLAN: Plan Patient seen and evaluated Patient is status post I&D of the right foot. DOS 02/10/2024 She is 6 months out of surgery. Cicatrix at incision sites medial foot and anterior leg with no signs of infection. Ulceration dorsal foot continues granulating in well versus her previous visit. She continues healing well at this time and continues HBO dives following tube placement. Ulceration predebridement measures 1.2 cm x 1.2 cm x 0.1 cm Ulceration did undergo debridement as noted on clinical panel above. Postdebridement measurements 1.3 cm x 1.3 cm x 0.1 cm. Has completed all 10 applications of EpiFix #10. Collagen powder moistened with hydrogel applied to the ulcerative bed today. Aquacel Ag and DSD applied. She is to change dressing daily. Her area of previous ulceration to the plantar foot with subdermal hemorrhaging is improved but additional swelling is present post recent fall. Additional hematoma was expressed today. Her scant hyperkeratosis at the plantar foot was debrided no expressible purulence from site. I previously discussed with her that I feel she is continuing progression of her new acute Charcot event most likely when she removed her boot to stand barefoot in the shower. Discussed continuing the CAM boot for immobilization and continuing to stay off of her foot is much as possible over the next 8 weeks until consolidation can begin to occur. She is understanding of this but this has been difficult. Ulceration demonstrates no increase in size vs previous visit but rather remains stable secondary to edema. Overall healing well and progressing towards healing of the dorsal foot ulceration. She still does demonstrate some plantar edema right at site of Charcot arthropathy degeneration. There is no expressible purulence. But she does cite recent dental work prior to her starting antibiotic and with active Charcot hematogenous spread remains possible thus she will continue her current oral antibiotic, Augmentin 500 mg twice daily x 28 days. Labs were ordered 08/10/24 in addition to updated x-ray of the right foot. Has finished oral Doxycycline and Levofloxacin. WBC from 08/10/2024 is 12.7, ESR 36, CRP 89.20. Radiographs from 08/10/2024 do demonstrate increased osseous destruction with joint fragmentation about the Lisfranc joint and sclerosis consistent with Charcot arthropathy however osteomyelitis cannot be ruled out due to the dorsal foot wound and previous dental work. Will continue to monitor closely. She is understanding if she does develop signs and symptoms of infection which were discussed with her today she is to report to the ED for IV antibiotics as she would have failed outpatient oral antibiotic therapy. I did discuss the labs in detail with her today. She does report some improvement with the additional antibiotic. I have previously discussed obtaining MRI in outpatient setting for further evaluation of the right foot. She is in agreement. This was ordered and patient would like to obtain at the mobile MRI unit at [facility] [place], and are currently awaiting approval. She was approved for EpiFix, completed all 10 applications. Due to her acute Charcot event placing her at increased risk for infection she was started on oral antibiotic. Rx doxycycline 100 mg twice daily x 14 days, levofloxacin 750 mg p.o. daily x 14 days and has finished both to completion. Diflucan 150 mg tablet every 72 hours x 3 doses as she does get candidiasis when taking oral antibiotic. Will continue Augmentin. ABX stop date 09/21/2024 Will be permitted to continue protective weightbearing to the right lower extremity in CAM boot. Has completed all HBO dives. HgbA1c during hospital admission was 11.3% on 02/15/2024. Sugars have been well controlled following approval of insulin on new insurance. Current HgbA1c is 6.8% on 08/10/24. The following work up and care recommendations were made: Dressing: Collagen powder moistened with hydrogel, [employer], dry sterile dressing right foot. Change daily Wash: Soap and water Tissue growth optimization: Collagen powder and hydrogel Offload: Nonweightbearing to the right lower extremity Vascular: DP and PT pulses palpable with adequate capillary fill time. Vascular status not impacting healing at this time. Edema: Edema well-controlled. Will continue with Tubigrip stocking application Infection: No signs of infection. Currently on IV antibiotics via PICC line. Will continue daptomycin and Unasyn per ID Pain: No pain to the ulcerative site secondary to diabetic peripheral polyneuropathy Host factors: DM type II with peripheral polyneuropathy, uncontrolled. Charcot foot right foot At this time prognosis is good and she continues healing well. However her Charcot event is complicating her healing as swelling remains and foot is unstable. Will continue to monitor for infection as she has had a history of this. I answered all the patient's questions. To return to the wound healing center in 1 week or call sooner if the patient has any questions or concerns.
--- NOTE | 2024-08-25 10:34 | WC ---
PHOTO 08/24/24 RIGHT DORSAL
--- NOTE | 2024-08-25 10:36 | WC ---
PHOTO 08/24/24 RIGHT PLANTAR
[2024-08-31 08:25] VITALS: BP 123/57; PULSE 95; RESP 18; TEMP 35.7
--- NOTE | 2024-08-31 09:18 | PCM.WC.PN ---
History of Present Illness Date of Service: 08/31/24 Chief Complaint: Diabetic right foot ulceration History of Wound: Ms. Falk is a 58-year-old currently being seen at the wound center for right foot/ankle ulcer. She is currently undergoing hyperbaric oxygen therapy for the diabetic foot ulceration involving her right foot. She has been under the care of Dr. Jason Lewis, Outboard Motorboat Rigger, relative to the management of her diabetic foot ulceration. Review of the patient's medical record indicates that she has tolerated HBOT well and there has been corresponding significant improvement in ulcer. 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 Blood glucose readings have been largely stable. No chest pain, tightness, blurry vision or concerns reported. Subjective Subjective This is a 58-year-old female who continues to follow with the wound care center for right dorsal foot ulceration. She had previously undergone I&D on 02/10/2024 of the right foot. Continues healing of her dorsal ulceration and is changing dressing daily. She feels ulceration is improving and looking better each week but still experiencing continued swelling post-Charcot event. She did present to ED on 08/28/2024 due to abnormal labs however once checked in lab work all returned within normal limits. She did undergo MRI at that time demonstrating normal Charcot changes and diffuse swelling. She continues to rest her foot as much as possible and is immobilizing in CAM boot but foot remains unstable. States she continues oral antibiotic as instructed. Denies constitutional symptoms. Denies further complaints. Objective Data Objective Data Vital Signs: Vital Signs Temp Pulse Resp BP O2 Del Method 96.3 F L 95 18 123/57 H Room Air 08/31/24 08:25 08/31/24 08:25 08/31/24 08:25 08/31/24 08:25 08/24/24 08:38 Oxygen Delivery Method Room Air Physical Exam Const alert, oriented x3 and no apparent distress General Appearance: cooperative HEENT normocephalic Eyes General Eye: normal appearance of both eyes Neck General: normal visual inspection Lymph Lymphatic: no lymphadenopathy noted and no lymphedema noted Resp normal respiratory effort Cardio regular rate and regular rhythm Extremity no calf tenderness Extremity Narrative: Right lower extremity: Vascular: DP and PT pulses palpable with adequate capillary fill time to the digits. Normal temperature gradient. Hair growth is absent to the digits. Neurologic: Gross sensation intact. Absent protective sensation consistent with diabetic peripheral polyneuropathy Musculoskeletal: No pain to palpation about the ulcerative site secondary to diabetic peripheral polyneuropathy. There is a Charcot foot deformity noted of the right foot. No pain to palpation about the ulcerative site. Dermatologic: Incision site medial foot healed with cicatrix. No signs of infection. Incision site anterior leg with cicatrix proximally and distally. No signs of infection. There is a full thickness ulceration dorsally along the midfoot medial to the incision site with mixed fibrogranular tissue and some hypergranular tissue. Ulceration continues improvement with reduction in size and is progressing well. Ulceration site demonstrates no signs of infection. Plantar foot demonstrates scant hyperkeratosis with some plantar edema secondary to continued Charcot degenerative arthropathy progression. No purulence expressible from plantar foot. Skin no rashes or lesions noted and skin turgor normal Neuro moves all extremities Debridement Note Debridement Note Wound debrided: Right foot Laterality: Right Wound Grade/Stage: Gonzalez stage III Type of Debridement: Excisional debridement Anesthesia Used: 5% Lidocaine Gel Depth: Down to and including healthy tissue and in the subcutaneous layer Percentage of wound debrided: 100 Instrument Used: #15 blade Tissue Removed: Fibrous, devitalized subcutaneous, biofilm, slough Severity: Fat Layer Exposed Amount of bleeding with debridement: Mild Bleeding Controlled with: Compression and gauze Patient tolerated procedure: Patient tolerated procedure well Post-Debridement Measurements and Additional Note: Post-Debridement Measurements/Treatment - Nurse 1 - General Ulcer Assessment Start: 08/24/24 08:37 Freq: Status: Active Protocol: RUKHSANA Activity Type Activity Date Activity User E-sign Co-sign Detail Recorded Client Recorded Date Recorded By Document 08/24/24 08:38 KW [id number] 08/24/24 08:44 KW Document 08/31/24 08:25 DL [id number] 08/31/24 08:32 DL 08/24/24 08/31/24 08:38 08:25 - Today's Visit Information Type of service Follow-up Visit Follow-up Visit (Physician/RADIAL DRILL OPERATOR (Physician/RADIAL DRILL OPERATOR ) ) Arrival Mode Ambulatory, Ambulatory Walker Transfer Assistance None Patient Identification Verified (Name & Yes Yes ) Patient Requires Transmission-Based No No Precautions Safety Precautions Fall Prevention Vital Signs Temperature (97.8 F-99.1 F) 97.6 F L 96.3 F L Temperature Source Temporal Temporal Pulse Rate (60-100) 102 H 95 Pulse Location Monitor Monitor Respiratory Rate (12-18) 18 18 Respiratory rate source Observation Observation Oxygen Delivery Method Room Air Blood Pressure (90/60-120/80) 116/68 123/57 H Blood Pressure Mean (mm Hg) 84 79 Source Monitor Monitor Position Sitting Blood Pressure Location Right Arm History Since Last Visit- (Skip if this is Patient's initial visit) Have you changed medications since your No last visit? Any new allergies or adverse reactions No Had a fall/change in ADL's that may No increase risk of falls Signs or symptoms of abuse and/or No neglect since last visit Have you been in the hospital since your No last visit? Has dressing in place as prescribed Yes Has compression in place as prescribed N/A Has offloadiing in place as prescribed Yes Experienced any changes in pain level or No management Left Footwear Regular Shoe Right Footwear Removable Cast Removable Cast Walker/Walking Walker/Walking Boot Boot Pain Scale: 0-10 Numeric Is Patient Pain Free? No Yes RLE -Description Throbbing, Aching -Intensity 6 -Duration (hours) Chronic -Pain Behavior No Change in Behavior -Alleviating Factors/Interventions Will continue to monitor, Emotional Support WC - Nurse 1 - General Ulcer Measurement Start: 08/24/24 08:37 Freq: Status: Active Protocol: Activity Type Activity Date Activity User E-sign Co-sign Detail Recorded Client Recorded Date Recorded By Document 08/24/24 08:38 KW [id number] 08/24/24 08:44 KW Document 08/31/24 08:25 DL [id number] 08/31/24 08:32 DL 08/24/24 08/31/24 08:38 08:25 Wound Center Nurse 1 #7- R PLANTAR FOOT -Current Size (cm) - Length 0.1 0.1 -Current Size (cm) - Width 0.1 0.1 -Current Size (cm) - Depth 0.1 0.1 -Total Square Cm 0.01 0.01 -Date of Last Picture (Recall this 08/24/24 field) -Photo Taken Yes -Tunneling No -Undermining/Tunneling No -Circular Undermining No -Exudate Amt None Present -Wound Margin Distinct, Indistinct, Non Outline -Visible Attached -Granulation Amt Large (67-100%) -Granulation Quality Pale,Bee Branch -Necrosis Amt None Present (0 %) -Structure Exposed N/A -Texture (Marie-wound Skin Appearance) Assessed Localized Edema ,Scarring -Moisture (Marie-wound Skin Appearance) Assessed Dry/Scaly -Color (Marie-wound Skin Appearance) Assessed No Abnormality -Temperature (Marie-wound Skin No Abnormality Appearance) (Pt Warm) -Tenderness on Palpation (Marie-wound No Skin Appearance) -Ulcer Cleansing Soap and Water Soap and Water -Foul Odor after Cleansing No No -Anesthetic Used 5% Lidocaine Gel #5 RDorsal/Anterior Ankle -Current Size (cm) - Length 1.0 0.8 -Current Size (cm) - Width 1.3 1.2 -Current Size (cm) - Depth 0.1 0.1 -Total Square Cm 1.30 0.96 -Date of Last Picture (Recall this 08/24/24 field) -Photo Taken Yes -Tunneling No -Undermining/Tunneling No -Circular Undermining No -Exudate Amt Medium -Exudate Type Serosanguineous -Wound Margin Distinct, Distinct, Outline Outline Attached Attached -Granulation Amt Small (1-33%) -Granulation Quality Hyper- Bee Branch granulation -Necrosis Amt Small (1-33%) -Necrotic Tissue Type Adherent Slough -Structure Exposed N/A -Texture (Marie-wound Skin Appearance) Assessed Scarring -Moisture (Marie-wound Skin Appearance) Assessed Maceration -Color (Marie-wound Skin Appearance) Assessed No Abnormality -Temperature (Marie-wound Skin No Abnormality Appearance) (Pt Warm) -Ulcer Cleansing Soap and Water Soap and Water -Foul Odor after Cleansing No No -Anesthetic Used 5% Lidocaine 5% Lidocaine Gel Gel WC - Nurse 2 - General Ulcer CM Notes Start: 08/24/24 08:37 Freq: Status: Active Protocol: Activity Type Activity Date Activity User E-sign Co-sign Detail Recorded Client Recorded Date Recorded By Document 08/24/24 09:10 BM [id number] 08/24/24 09:31 BM Document 08/31/24 08:59 BM [id number] 08/31/24 09:05 BMF 08/24/24 08/31/24 09:10 08:59 Wound Center Nurse 2 #7- R PLANTAR FOOT -Time 09:13 -Post Debridement (cm) - Length 0.1 0 -Post Debridement (cm) - Width 0.1 0 -Post Debridement (cm) - Depth 0.1 0 -Total Square (Post) (cm) 0.01 0 -Area of Debridement (cm) - Length 0.1 0 -Area of Debridement (cm) - Width 0.1 0 -Total Square (Area) (cm) 0.01 0 -Wound/Ulcer Outcome Healed- Epithelialized -Bleeding Controlled with Pressure #5 RDorsal/Anterior Ankle -Time 09:26 08:59 -Correct Patient Yes Yes -Correct Side, Site, Position Yes Yes -Correct Procedure Yes Yes -Procedure Performed Yes Yes -Type of Procedure Debridement Debridement -Clinical Debridement Subcutaneous Subcutaneous -Tissue Removed Subcutaneous Subcutaneous -Post Debridement (cm) - Length 1.3 1.2 -Post Debridement (cm) - Width 1.3 1 -Post Debridement (cm) - Depth 0.1 0.1 -Total Square (Post) (cm) 1.69 1.2 -Area of Debridement (cm) - Length 1.3 1.2 -Area of Debridement (cm) - Width 1.3 1 -Total Square (Area) (cm) 1.69 1.2 -Tunneling No No -Undermining/Tunneling No No -Circular Undermining No No -Wound/Ulcer Outcome Not Healed Not Healed -Ulcer Cleansing Rinsed/ Rinsed/ Irrigated with Irrigated with Saline Saline -Foul Odor after Cleansing No No -Bioengineered Tissue No No -Bleeding Controlled with Pressure Pressure -Treatment Response Procedure Procedure Tolerated Well Tolerated Well -Debridement - Subq, 1st 20sq cm Yes Yes Pain Scale: 0-10 Numeric Is Patient Pain Free? Yes Yes WC - Nurse 3 - General Ulcer D/C NN Start: 08/24/24 08:37 Freq: Status: Active Protocol: Activity Type Activity Date Activity User E-sign Co-sign Detail Recorded Client Recorded Date Recorded By Document 08/24/24 09:50 DL [id number] 08/24/24 09:53 DL 08/24/24 09:50 Wound Care Center Nurse 3 #7- R PLANTAR FOOT -Ulcer Cleansing Rinsed/ Irrigated with Saline -Foul Odor after Cleansing No -Primary Dressing Covered/Secured with Dry Gauze & Roll Gauze, Secured with Tape #5 RDorsal/Anterior Ankle -Ulcer Cleansing Soap and Water -Foul Odor after Cleansing No -Primary Dressing Applied Aquacel Extra, Collagen Powder -Primary Dressing Covered/Secured with Dry Gauze & Roll Gauze, Secured with Tape -Other Covering ARMANDO -Aquacel Extra 1 -Collagen Powder 1 Treatment Response Procedure Tolerated Well Pain Scale: 0-10 Numeric Is Patient Pain Free? 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 Qualified Code(s): E11.42 - Type 2 diabetes mellitus with diabetic polyneuropathy; Z79.4 - retirement (current) use of insulin (3) Type 2 diabetes mellitus with foot ulcer: CODE(S): E11.621 - Type 2 diabetes mellitus with foot ulcer; L97.509 - Non-pressure chronic ulcer of other part of unspecified foot with unspecified severity QUALIFIERS: Diabetes mellitus care home insulin use: with care home use Qualified Code(s): E11.621 - Type 2 diabetes mellitus with foot ulcer; L97.509 - Non-pressure chronic ulcer of other part of unspecified foot with unspecified severity; Z79.4 - retirement (current) use of insulin (4) Charcot's joint of right foot: CODE(S): M14.671 - Charcot's joint, right ankle and foot PLAN: Plan Patient seen and evaluated Patient is status post I&D of the right foot. DOS 02/10/2024 She is 6 months out of surgery. Cicatrix at incision sites medial foot and anterior leg with no signs of infection. Ulceration dorsal foot continues granulating in well versus her previous visit. She continues healing well at this time and continues HBO dives following tube placement. Ulceration predebridement measures 1.1 cm x 0.9 cm x 0.1 cm Ulceration did undergo debridement as noted on clinical panel above. Postdebridement measurements 1.2 cm x 1.0 cm x 0.1 cm. Has completed all 10 applications of EpiFix #10. Collagen powder moistened with hydrogel applied to the ulcerative bed today. Aquacel Ag and DSD applied. She is to change dressing daily. Her area of previous ulceration to the plantar foot with subdermal hemorrhaging is improved but additional swelling is present post recent fall. Additional hematoma was expressed today. Her scant hyperkeratosis at the plantar foot was debrided no expressible purulence from site. I previously discussed with her that I feel she is continuing progression of her new acute Charcot event most likely when she removed her boot to stand barefoot in the shower. Discussed continuing the CAM boot for immobilization and continuing to stay off of her foot is much as possible over the next 8 weeks until consolidation can begin to occur. She is understanding of this but this has been difficult. Ulceration demonstrates no increase in size vs previous visit but rather remains stable secondary to edema. Overall healing well and progressing towards healing of the dorsal foot ulceration. She still does demonstrate some plantar edema right at site of Charcot arthropathy degeneration. There is no expressible purulence. But she does cite recent dental work prior to her starting antibiotic and with active Charcot hematogenous spread remains possible thus she will continue her current oral antibiotic, Augmentin 500 mg twice daily x 28 days. Labs were ordered 08/10/24 in addition to updated x-ray of the right foot. Has finished oral Doxycycline and Levofloxacin. WBC from 08/10/2024 is 12.7, ESR 36, CRP 89.20. Radiographs from 08/10/2024 do demonstrate increased osseous destruction with joint fragmentation about the Lisfranc joint and sclerosis consistent with Charcot arthropathy however osteomyelitis cannot be ruled out due to the dorsal foot wound and previous dental work. Will continue to monitor closely. She is understanding if she does develop signs and symptoms of infection which were discussed with her today she is to report to the ED for IV antibiotics as she would have failed outpatient oral antibiotic therapy. I did discuss the labs in detail with her today. She does report some improvement with the additional antibiotic. WBC from 08/28/2024 ED visit was 10.0 all other labs were within normal limits MRI had been approved upon [facility] however while in ED that evening MRI was obtained demonstrating acute Charcot changes and soft tissue swelling. No signs of osteomyelitis. She was approved for EpiFix, completed all 10 applications. Due to her acute Charcot event placing her at increased risk for infection she was started on oral antibiotic. Rx doxycycline 100 mg twice daily x 14 days, levofloxacin 750 mg p.o. daily x 14 days and has finished both to completion. Diflucan 150 mg tablet every 72 hours x 3 doses as she does get candidiasis when taking oral antibiotic. Will continue Augmentin. ABX stop date 09/21/2024 Will be permitted to continue protective weightbearing to the right lower extremity in CAM boot. Has completed all HBO dives. HgbA1c during hospital admission was 11.3% on 02/15/2024. Sugars have been well controlled following approval of insulin on new insurance. Current HgbA1c is 6.8% on 08/10/24. The following work up and care recommendations were made: Dressing: Collagen powder moistened with hydrogel, [employer], dry sterile dressing right foot. Change daily Wash: Soap and water Tissue growth optimization: Collagen powder and hydrogel Offload: Nonweightbearing to the right lower extremity Vascular: DP and PT pulses palpable with adequate capillary fill time. Vascular status not impacting healing at this time. Edema: Edema well-controlled. Will continue with Tubigrip stocking application Infection: No signs of infection. Currently on IV antibiotics via PICC line. Will continue daptomycin and Unasyn per ID Pain: No pain to the ulcerative site secondary to diabetic peripheral polyneuropathy Host factors: DM type II with peripheral polyneuropathy, uncontrolled. Charcot foot right foot At this time prognosis is good and she continues healing well. However her Charcot event is complicating her healing as swelling remains and foot is unstable. Will continue to monitor for infection as she has had a history of this. I answered all the patient's questions. To return to the wound healing center in 1 week or call sooner if the patient has any questions or concerns.
--- NOTE | 2024-09-05 14:46 | WC ---
PHOTO 08/31/24 RIGHT PLANTAR
--- NOTE | 2024-09-05 14:49 | WC ---
PHOTO 08/31/24 RIGHT DORSAL
--- NOTE | 2024-09-05 14:52 | WC ---
PHOTO 08/31/24 RIGHT PLANTAR
[2024-09-07 08:42] VITALS: BP 117/54; PULSE 76; RESP 14; TEMP 35.8
--- NOTE | 2024-09-07 13:31 | PN.PCM_ITS ---
History of Present Illness Date of Service: 09/07/24 Chief Complaint: Diabetic right foot ulceration History of Wound: Ms. Falk is a 58-year-old currently being seen at the wound center for right foot/ankle ulcer. She is currently undergoing hyperbaric oxygen therapy for the diabetic foot ulceration involving her right foot. She has been under the care of Dr. Jason Lewis, [facility], relative to the management of her diabetic foot ulceration. Review of the patient's medical record indicates that she has tolerated HBOT well and there has been corresponding significant improvement in ulcer. 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 Blood glucose readings have been largely stable. No chest pain, tightness, blurry vision or concerns reported. Subjective Subjective This is a 58-year-old female who continues to follow with the wound care center for right dorsal foot ulceration. She had previously undergone I&D on 02/10/2024 of the right foot. Continues healing of her dorsal ulceration and is changing dressing daily. She feels ulceration is improving and looking better each week but still experiencing continued swelling post-Charcot event, which is starting to improve. She continues to rest her foot as much as possible and is immobilizing in CAM boot but foot remains unstable as this is undergoing healing. States she continues oral antibiotic as instructed. Denies constitutional symptoms. Denies further complaints. Objective Data Objective Data Vital Signs: Vital Signs Temp Pulse Resp BP O2 Del Method 96.4 F L 76 14 117/54 L Room Air 09/07/24 08:42 09/07/24 08:42 09/07/24 08:42 09/07/24 08:42 08/24/24 08:38 Oxygen Delivery Method Room Air Physical Exam Const alert, oriented x3 and no apparent distress General Appearance: cooperative HEENT normocephalic Eyes General Eye: normal appearance of both eyes Neck General: normal visual inspection Lymph Lymphatic: no lymphadenopathy noted and no lymphedema noted Resp normal respiratory effort Cardio regular rate and regular rhythm Extremity no calf tenderness Extremity Narrative: Right lower extremity: Vascular: DP and PT pulses palpable with adequate capillary fill time to the digits. Normal temperature gradient. Hair growth is absent to the digits. Neurologic: Gross sensation intact. Absent protective sensation consistent with diabetic peripheral polyneuropathy Musculoskeletal: No pain to palpation about the ulcerative site secondary to diabetic peripheral polyneuropathy. There is a Charcot foot deformity noted of the right foot. No pain to palpation about the ulcerative site. Dermatologic: Incision site medial foot healed with cicatrix. No signs of infection. Incision site anterior leg with cicatrix proximally and distally. No signs of infection. There is a full thickness ulceration dorsally along the midfoot medial to the incision site with mixed fibrogranular tissue and some hypergranular tissue. Ulceration continues improvement with reduction in size and is progressing well. Ulceration site demonstrates no signs of infection. Plantar foot demonstrates scant hyperkeratosis with some plantar edema secondary to continued Charcot degenerative arthropathy progression. No purulence expressible from plantar foot. Skin no rashes or lesions noted and skin turgor normal Neuro moves all extremities Debridement Note Debridement Note Wound debrided: Right foot Laterality: Right Wound Grade/Stage: Gonzalez stage III Type of Debridement: Excisional debridement Anesthesia Used: 5% Lidocaine Gel Depth: Down to and including healthy tissue and in the subcutaneous layer Percentage of wound debrided: 100 Instrument Used: #15 blade Tissue Removed: Fibrous, devitalized subcutaneous, biofilm, slough Severity: Fat Layer Exposed Amount of bleeding with debridement: Mild Bleeding Controlled with: Compression and gauze Patient tolerated procedure: Patient tolerated procedure well Post-Debridement Measurements and Additional Note: Post-Debridement Measurements/Treatment - Nurse 1 - General Ulcer Assessment Start: 08/24/24 08:37 Freq: Status: Active Protocol: [email or web address] Activity Type Activity Date Activity User E-sign Co-sign Detail Recorded Client Recorded Date Recorded By Document 08/24/24 08:38 KW [id number] 08/24/24 08:44 KW Document 08/31/24 08:25 DL [id number] 08/31/24 08:32 DL Document 09/07/24 08:42 ML [id number] 09/07/24 08:45 ML 08/24/24 08/31/24 09/07/24 08:38 08:25 08:42 - Today's Visit Information Type of service Follow-up Visit Follow-up Visit Follow-up Visit (Physician/TEENAGE PROGRAM DIRECTOR (Physician/TEENAGE PROGRAM DIRECTOR (Physician/TEENAGE PROGRAM DIRECTOR ) ) ) Arrival Mode Ambulatory, Ambulatory Ambulatory,Cane Walker Transfer Assistance None None Patient Identification Verified (Name & Yes Yes Yes ) Patient Requires Transmission-Based No No No Precautions Safety Precautions Fall Prevention Vital Signs Temperature (97.8 F-99.1 F) 97.6 F L 96.3 F L 96.4 F L Temperature Source Temporal Temporal Temporal Pulse Rate (60-100) 102 H 95 76 Pulse Location Monitor Monitor Monitor Respiratory Rate (12-18) 18 18 14 Respiratory rate source Observation Observation Oxygen Delivery Method Room Air Blood Pressure (90/60-120/80) 116/68 123/57 H 117/54 L Blood Pressure Mean (mm Hg) 84 79 75 Source Monitor Monitor Monitor Position Sitting Sitting Blood Pressure Location Right Arm Left Arm History Since Last Visit- (Skip if this is Patient's initial visit) Have you changed medications since your No No last visit? Any new allergies or adverse reactions No No Had a fall/change in ADL's that may No No increase risk of falls Signs or symptoms of abuse and/or No No neglect since last visit Have you been in the hospital since your No last visit? Has dressing in place as prescribed Yes Yes Has compression in place as prescribed N/A Yes Has offloadiing in place as prescribed Yes Yes Experienced any changes in pain level or No No management Left Footwear Regular Shoe Right Footwear Removable Cast Removable Cast Walker/Walking Walker/Walking Boot Boot Pain Scale: 0-10 Numeric Is Patient Pain Free? No Yes Yes RLE -Description Throbbing, Aching -Intensity 6 -Duration (hours) Chronic -Pain Behavior No Change in Behavior -Alleviating Factors/Interventions Will continue to monitor, Emotional Support WC - Nurse 1 - General Ulcer Measurement Start: 08/24/24 08:37 Freq: Status: Active Protocol: Activity Type Activity Date Activity User E-sign Co-sign Detail Recorded Client Recorded Date Recorded By Document 08/24/24 08:38 KW [id number] 08/24/24 08:44 KW Document 08/31/24 08:25 DL [id number] 08/31/24 08:32 DL Document 09/07/24 08:42 ML [id number] 09/07/24 08:45 ML 08/24/24 08/31/24 09/07/24 08:38 08:25 08:42 Wound Center Nurse 1 #7- R PLANTAR FOOT -Current Size (cm) - Length 0.1 0.1 -Current Size (cm) - Width 0.1 0.1 -Current Size (cm) - Depth 0.1 0.1 -Total Square Cm 0.01 0.01 -Date of Last Picture (Recall this 08/24/24 field) -Photo Taken Yes -Tunneling No -Undermining/Tunneling No -Circular Undermining No -Exudate Amt None Present -Wound Margin Distinct, Indistinct, Non Outline -Visible Attached -Granulation Amt Large (67-100%) -Granulation Quality Pale,[place] -Necrosis Amt None Present (0 %) -Structure Exposed N/A -Texture (Marie-wound Skin Appearance) Assessed Localized Edema ,Scarring -Moisture (Marie-wound Skin Appearance) Assessed Dry/Scaly -Color (Marie-wound Skin Appearance) Assessed No Abnormality -Temperature (Marie-wound Skin No Abnormality Appearance) (Pt Warm) -Tenderness on Palpation (Marie-wound No Skin Appearance) -Ulcer Cleansing Soap and Water Soap and Water -Foul Odor after Cleansing No No -Anesthetic Used 5% Lidocaine Gel #5 RDorsal/Anterior Ankle -Current Size (cm) - Length 1.0 0.8 0.8 -Current Size (cm) - Width 1.3 1.2 1.5 -Current Size (cm) - Depth 0.1 0.1 0.1 -Total Square Cm 1.30 0.96 1.20 -Date of Last Picture (Recall this 08/24/24 field) -Photo Taken Yes -Tunneling No -Undermining/Tunneling No -Circular Undermining No -Exudate Amt Medium Medium -Exudate Type Serosanguineous Serosanguineous -Wound Margin Distinct, Distinct, Outline Outline Attached Attached -Granulation Amt Small (1-33%) Medium (34-66%) -Granulation Quality Hyper- [place] Hyper- granulation granulation, Pale -Necrosis Amt Small (1-33%) Medium (34-66%) -Necrotic Tissue Type Adherent Slough Adherent Slough -Structure Exposed N/A -Texture (Marie-wound Skin Appearance) Assessed Scarring Assessed -Moisture (Marie-wound Skin Appearance) Assessed Maceration -Color (Marie-wound Skin Appearance) Assessed No Abnormality Assessed -Temperature (Marie-wound Skin No Abnormality No Abnormality Appearance) (Pt Warm) (Pt Warm) -Tenderness on Palpation (Marie-wound No Skin Appearance) -Ulcer Cleansing Soap and Water Soap and Water Soap and Water -Foul Odor after Cleansing No No No -Anesthetic Used 5% Lidocaine 5% Lidocaine 5% Lidocaine Gel Gel Gel WC - Nurse 2 - General Ulcer CM Notes Start: 08/24/24 08:37 Freq: Status: Active Protocol: Activity Type Activity Date Activity User E-sign Co-sign Detail Recorded Client Recorded Date Recorded By Document 08/24/24 09:10 BM [id number] 08/24/24 09:31 BM Document 08/31/24 08:59 BM [id number] 08/31/24 09:05 BM Document 09/07/24 08:50 [facility] [id number] 09/07/24 08:59 BMF 08/24/24 08/31/24 09/07/24 09:10 08:59 08:50 Wound Center Nurse 2 #7- R PLANTAR FOOT -Time 09:13 -Post Debridement (cm) - Length 0.1 0 -Post Debridement (cm) - Width 0.1 0 -Post Debridement (cm) - Depth 0.1 0 -Total Square (Post) (cm) 0.01 0 -Area of Debridement (cm) - Length 0.1 0 -Area of Debridement (cm) - Width 0.1 0 -Total Square (Area) (cm) 0.01 0 -Wound/Ulcer Outcome Healed- Epithelialized -Bleeding Controlled with Pressure #5 RDorsal/Anterior Ankle -Time 09:26 08:59 08:51 -Correct Patient Yes Yes Yes -Correct Side, Site, Position Yes Yes Yes -Correct Procedure Yes Yes Yes -Procedure Performed Yes Yes Yes -Type of Procedure Debridement Debridement Debridement -Clinical Debridement Subcutaneous Subcutaneous -Tissue Removed Subcutaneous Subcutaneous -Post Debridement (cm) - Length 1.3 1.2 1 -Post Debridement (cm) - Width 1.3 1 1 -Post Debridement (cm) - Depth 0.1 0.1 0.1 -Total Square (Post) (cm) 1.69 1.2 1 -Area of Debridement (cm) - Length 1.3 1.2 1 -Area of Debridement (cm) - Width 1.3 1 1 -Total Square (Area) (cm) 1.69 1.2 1 -Tunneling No No -Undermining/Tunneling No No -Circular Undermining No No -Wound/Ulcer Outcome Not Healed Not Healed Not Healed -Ulcer Cleansing Rinsed/ Rinsed/ Rinsed/ Irrigated with Irrigated with Irrigated with Saline Saline Saline -Foul Odor after Cleansing No No No -Bioengineered Tissue No No No -Bleeding Controlled with Pressure Pressure Pressure -Treatment Response Procedure Procedure Procedure Tolerated Well Tolerated Well Tolerated Well -Debridement - Subq, 1st 20sq cm Yes Yes Pain Scale: 0-10 Numeric Is Patient Pain Free? Yes Yes Yes - Nurse 3 - General Ulcer D/C NN Start: 08/24/24 08:37 Freq: Status: Active Protocol: Activity Type Activity Date Activity User E-sign Co-sign Detail Recorded Client Recorded Date Recorded By Document 08/24/24 09:50 DL [id number] 08/24/24 09:53 DL Document 08/31/24 09:24 DL [id number] 08/31/24 09:26 DL Document 09/07/24 09:24 DL [id number] 09/07/24 09:26 DL 08/24/24 08/31/24 09/07/24 09:50 09:24 09:24 Wound Care Center Nurse 3 #7- R PLANTAR FOOT -Ulcer Cleansing Rinsed/ Irrigated with Saline -Foul Odor after Cleansing No -Primary Dressing Covered/Secured with Dry Gauze & Roll Gauze, Secured with Tape #5 RDorsal/Anterior Ankle -Ulcer Cleansing Soap and Water Rinsed/ Rinsed/ Irrigated with Irrigated with Saline Saline -Foul Odor after Cleansing No No No -Primary Dressing Applied Aquacel Extra, Aquacel Extra,C Collagen Powder Collagen Powder Hydrogel, Collagen Powder -Other Dressing hydrogel -Primary Dressing Covered/Secured with Dry Gauze & Dry Gauze & Dry Gauze & Roll Gauze, Roll Gauze, Roll Gauze, Secured with Secured with Secured with Tape Tape Tape -Other Covering SEBASTIAN ABD -Aquacel Extra 1 1 -Collagen Powder 1 1 1 -Hydrogel 1 RLE -Compression Wrap Sebastian Wrap Sebastian Wrap Treatment Response Procedure Procedure Procedure Tolerated Well Tolerated Well Tolerated Well Pain Scale: 0-10 Numeric Is Patient Pain Free? Yes Yes Yes - Visit Discharge Discharge Condition Stable Stable Stable Ambulatory Status Ambulatory, Ambulatory Ambulatory,Cane Walker Transportation Private Auto Private Auto Private Auto Facility Type Home Health Orders Sent Yes Assessment/Plan Assessment/Plan (1) Non-pressure chronic ulcer of other part of right foot with fat layer exposed: CODE(S): L97.512 - Non-pressure chronic ulcer of other part of right foot with fat layer exposed (2) Type 2 diabetes mellitus with diabetic polyneuropathy: CODE(S): E11.42 - Type 2 diabetes mellitus with diabetic polyneuropathy QUALIFIERS: Diabetes mellitus nursing home insulin use: with nursing home use Qualified Code(s): E11.42 - Type 2 diabetes mellitus with diabetic polyneuropathy; Z79.4 - intermediate (current) use of insulin (3) Type 2 diabetes mellitus with foot ulcer: CODE(S): E11.621 - Type 2 diabetes mellitus with foot ulcer; L97.509 - Non-pressure chronic ulcer of other part of unspecified foot with unspecified severity QUALIFIERS: Diabetes mellitus long chain beamer insulin use: with nursing home use Qualified Code(s): E11.621 - Type 2 diabetes mellitus with foot ulcer; L97.509 - Non-pressure chronic ulcer of other part of unspecified foot with unspecified severity; Z79.4 - intermediate (current) use of insulin (4) Charcot's joint of right foot: CODE(S): M14.671 - Charcot's joint, right ankle and foot PLAN: Plan Patient seen and evaluated Patient is status post I&D of the right foot. DOS 02/10/2024 She is 7 months out of surgery. Cicatrix at incision sites medial foot and anterior leg with no signs of infection. Ulceration dorsal foot continues granulating in well versus her previous visit. She continues healing well at this time and continues HBO dives following tube placement. Ulceration predebridement measures 0.9 cm x 0.9 cm x 0.1 cm Ulceration did undergo debridement as noted on clinical panel above. Postdebridement measurements 1.0 cm x 1.0 cm x 0.1 cm. Has completed all 10 applications of EpiFix #10. Collagen powder moistened with hydrogel applied to the ulcerative bed today. Aquacel Ag and DSD applied. She is to change dressing daily. Her area of previous ulceration to the plantar foot with subdermal hemorrhaging is improved but additional swelling is resolving post recent fall. Her scant hyperkeratosis at the plantar foot was debrided no expressible purulence from site. I previously discussed with her that I feel she is continuing progression of her new acute Charcot event most likely when she removed her boot to stand barefoot in the shower. Discussed continuing the CAM boot for immobilization and continuing to stay off of her foot is much as possible over the next 7 weeks until consolidation can continue to occur. She is understanding of this but this has been difficult. Ulceration demonstrates decrease in size vs previous visit with improvement in edema also noted. Overall healing well and progressing towards healing of the dorsal foot ulceration. She still does demonstrate some plantar edema right at site of Charcot arthropathy degeneration, but this is improving. There is no expressible purulence. But she does cite recent dental work prior to her starting antibiotic and with active Charcot hematogenous spread remains possible thus she will continue her current oral antibiotic, Augmentin 500 mg twice daily x 28 days. Labs were ordered 08/10/24 in addition to updated x-ray of the right foot. Has finished oral Doxycycline and Levofloxacin. WBC from 08/10/2024 is 12.7, ESR 36, CRP 89.20. Radiographs from 08/10/2024 do demonstrate increased osseous destruction with joint fragmentation about the Lisfranc joint and sclerosis consistent with Charcot arthropathy however osteomyelitis cannot be ruled out due to the dorsal foot wound and previous dental work. Will continue to monitor closely. She is understanding if she does develop signs and symptoms of infection which were discussed with her today she is to report to the ED for IV antibiotics as she would have failed outpatient oral antibiotic therapy. I did discuss the labs in detail with her today. She does report some improvement with the additional antibiotic. WBC from 08/28/2024 ED visit was 10.0 all other labs were within normal limits MRI had been approved at [place] prior to visit to hospital, however while in ED that evening MRI was obtained demonstrating acute Charcot changes and soft tissue swelling. No signs of osteomyelitis. She was approved for [employer], completed all 10 applications. Due to her acute Charcot event placing her at increased risk for infection she was started on oral antibiotic. Rx doxycycline 100 mg twice daily x 14 days, levofloxacin 750 mg p.o. daily x 14 days and has finished both to completion. Diflucan 150 mg tablet every 72 hours x 3 doses as she does get candidiasis when taking oral antibiotic. Will continue Augmentin. ABX stop date 09/21/2024 Will be permitted to continue protective weightbearing to the right lower extremity in CAM boot. Has completed all HBO dives. HgbA1c during hospital admission was 11.3% on 02/15/2024. Sugars have been well controlled following approval of insulin on new insurance. Current HgbA1c is 6.8% on 08/10/24. The following work up and care recommendations were made: Dressing: Collagen powder moistened with hydrogel, Aquacel Ag, dry sterile dressing right foot. Change daily Wash: Soap and water Tissue growth optimization: Collagen powder and hydrogel Offload: Nonweightbearing to the right lower extremity Vascular: DP and PT pulses palpable with adequate capillary fill time. Vascular status not impacting healing at this time. Edema: Edema well-controlled. Will continue with Tubigrip stocking application Infection: No signs of infection. Currently on IV antibiotics via PICC line. Will continue daptomycin and Unasyn per ID Pain: No pain to the ulcerative site secondary to diabetic peripheral polyneuropathy Host factors: DM type II with peripheral polyneuropathy, uncontrolled. Charcot foot right foot At this time prognosis is good and she continues healing well. However her Charcot event is complicating her healing as swelling remains and foot is unstable. Will continue to monitor for infection as she has had a history of this. I answered all the patient's questions. To return to the wound healing center in 1 week or call sooner if the patient has any questions or concerns.
--- NOTE | 2024-09-14 08:32 | PCM.WC.PN ---
History of Present Illness Date of Service: 09/14/24 Chief Complaint: Diabetic right foot ulceration History of Wound: Ms. Falk is a 58-year-old currently being seen at the wound center for right foot/ankle ulcer. She is currently undergoing hyperbaric oxygen therapy for the diabetic foot ulceration involving her right foot. She has been under the care of Dr. Jason Lewis, Broadcast Operations Director, relative to the management of her diabetic foot ulceration. Review of the patient's medical record indicates that she has tolerated HBOT well and there has been corresponding significant improvement in ulcer. 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 Blood glucose readings have been largely stable. No chest pain, tightness, blurry vision or concerns reported. Subjective Subjective This is a 58-year-old female who continues to follow with the wound care center for right dorsal foot ulceration. She had previously undergone I&D on 02/10/2024 of the right foot. Continues healing of her dorsal ulceration and is changing dressing daily. States ulceration is improving and looking better each week. Notes swelling post-Charcot event is continuing to improve and feeling better overall. She continues to rest her foot as much as possible and is immobilizing in CAM boot but foot remains unstable as this is undergoing healing. States she continues oral antibiotic as instructed. Denies constitutional symptoms. Denies further complaints. Objective Data Objective Data Vital Signs: Vital Signs Temp Pulse Resp BP O2 Del Method 96.4 F L 76 14 117/54 L Room Air 09/07/24 08:42 09/07/24 08:42 09/07/24 08:42 09/07/24 08:42 08/24/24 08:38 Oxygen Delivery Method Room Air Physical Exam Const alert, oriented x3 and no apparent distress General Appearance: cooperative HEENT normocephalic Eyes General Eye: normal appearance of both eyes Neck General: normal visual inspection Lymph Lymphatic: no lymphadenopathy noted and no lymphedema noted Resp normal respiratory effort Cardio regular rate and regular rhythm Extremity no calf tenderness Extremity Narrative: Right lower extremity: Vascular: DP and PT pulses palpable with adequate capillary fill time to the digits. Normal temperature gradient. Hair growth is absent to the digits. Neurologic: Gross sensation intact. Absent protective sensation consistent with diabetic peripheral polyneuropathy Musculoskeletal: No pain to palpation about the ulcerative site secondary to diabetic peripheral polyneuropathy. There is a Charcot foot deformity noted of the right foot. No pain to palpation about the ulcerative site. Dermatologic: Incision site medial foot healed with cicatrix. No signs of infection. Incision site anterior leg with cicatrix proximally and distally. No signs of infection. There is a full thickness ulceration dorsally along the midfoot medial to the incision site with mixed fibrogranular tissue and some hypergranular tissue. Ulceration continues improvement with reduction in size and is progressing well. Ulceration site demonstrates no signs of infection. Plantar foot demonstrates scant hyperkeratosis with some plantar edema secondary to continued Charcot degenerative arthropathy progression. No purulence expressible from plantar foot. Skin no rashes or lesions noted and skin turgor normal Neuro moves all extremities Debridement Note Debridement Note Wound debrided: Right foot Laterality: Right Wound Grade/Stage: Gonzalez stage III Type of Debridement: Excisional debridement Anesthesia Used: 5% Lidocaine Gel Depth: Down to and including healthy tissue and in the subcutaneous layer Percentage of wound debrided: 100 Instrument Used: #15 blade Tissue Removed: Fibrous, devitalized subcutaneous, biofilm, slough Severity: Fat Layer Exposed Amount of bleeding with debridement: Mild Bleeding Controlled with: Compression and gauze Patient tolerated procedure: Patient tolerated procedure well Post-Debridement Measurements and Additional Note: Post-Debridement Measurements/Treatment - Nurse 1 - General Ulcer Assessment Start: 08/24/24 08:37 Freq: Status: Active Protocol: [email or web address].[email or web address] Activity Type Activity Date Activity User E-sign Co-sign Detail Recorded Client Recorded Date Recorded By Document 08/24/24 08:38 KW [id number] 08/24/24 08:44 KW Document 08/31/24 08:25 DL [id number] 08/31/24 08:32 DL Document 09/07/24 08:42 ML [id number] 09/07/24 08:45 ML 08/24/24 08/31/24 09/07/24 08:38 08:25 08:42 - Today's Visit Information Type of service Follow-up Visit Follow-up Visit Follow-up Visit (Physician/GOURMET COFFEE ATTENDANT (Physician/GOURMET COFFEE ATTENDANT (Physician/GOURMET COFFEE ATTENDANT ) ) ) Arrival Mode Ambulatory, Ambulatory Ambulatory,Cane Walker Transfer Assistance None None Patient Identification Verified (Name & Yes Yes Yes ) Patient Requires Transmission-Based No No No Precautions Safety Precautions Fall Prevention Vital Signs Temperature (97.8 F-99.1 F) 97.6 F L 96.3 F L 96.4 F L Temperature Source Temporal Temporal Temporal Pulse Rate (60-100) 102 H 95 76 Pulse Location Monitor Monitor Monitor Respiratory Rate (12-18) 18 18 14 Respiratory rate source Observation Observation Oxygen Delivery Method Room Air Blood Pressure (90/60-120/80) 116/68 123/57 H 117/54 L Blood Pressure Mean (mm Hg) 84 79 75 Source Monitor Monitor Monitor Position Sitting Sitting Blood Pressure Location Right Arm Left Arm History Since Last Visit- (Skip if this is Patient's initial visit) Have you changed medications since your No No last visit? Any new allergies or adverse reactions No No Had a fall/change in ADL's that may No No increase risk of falls Signs or symptoms of abuse and/or No No neglect since last visit Have you been in the hospital since your No last visit? Has dressing in place as prescribed Yes Yes Has compression in place as prescribed N/A Yes Has offloadiing in place as prescribed Yes Yes Experienced any changes in pain level or No No management Left Footwear Regular Shoe Right Footwear Removable Cast Removable Cast Walker/Walking Walker/Walking Boot Boot Pain Scale: 0-10 Numeric Is Patient Pain Free? No Yes Yes RLE -Description Throbbing, Aching -Intensity 6 -Duration (hours) Chronic -Pain Behavior No Change in Behavior -Alleviating Factors/Interventions Will continue to monitor, Emotional Support WC - Nurse 1 - General Ulcer Measurement Start: 08/24/24 08:37 Freq: Status: Active Protocol: Activity Type Activity Date Activity User E-sign Co-sign Detail Recorded Client Recorded Date Recorded By Document 08/24/24 08:38 KW [id number] 08/24/24 08:44 KW Document 08/31/24 08:25 DL [id number] 08/31/24 08:32 DL Document 09/07/24 08:42 ML [id number] 09/07/24 08:45 ML 08/24/24 08/31/24 09/07/24 08:38 08:25 08:42 Wound Center Nurse 1 #7- R PLANTAR FOOT -Current Size (cm) - Length 0.1 0.1 -Current Size (cm) - Width 0.1 0.1 -Current Size (cm) - Depth 0.1 0.1 -Total Square Cm 0.01 0.01 -Date of Last Picture (Recall this 08/24/24 field) -Photo Taken Yes -Tunneling No -Undermining/Tunneling No -Circular Undermining No -Exudate Amt None Present -Wound Margin Distinct, Indistinct, Non Outline -Visible Attached -Granulation Amt Large (67-100%) -Granulation Quality Pale,[place] -Necrosis Amt None Present (0 %) -Structure Exposed N/A -Texture (Marie-wound Skin Appearance) Assessed Localized Edema ,Scarring -Moisture (Marie-wound Skin Appearance) Assessed Dry/Scaly -Color (Marie-wound Skin Appearance) Assessed No Abnormality -Temperature (Marie-wound Skin No Abnormality Appearance) (Pt Warm) -Tenderness on Palpation (Marie-wound No Skin Appearance) -Ulcer Cleansing Soap and Water Soap and Water -Foul Odor after Cleansing No No -Anesthetic Used 5% Lidocaine Gel #5 RDorsal/Anterior Ankle -Current Size (cm) - Length 1.0 0.8 0.8 -Current Size (cm) - Width 1.3 1.2 1.5 -Current Size (cm) - Depth 0.1 0.1 0.1 -Total Square Cm 1.30 0.96 1.20 -Date of Last Picture (Recall this 08/24/24 field) -Photo Taken Yes -Tunneling No -Undermining/Tunneling No -Circular Undermining No -Exudate Amt Medium Medium -Exudate Type Serosanguineous Serosanguineous -Wound Margin Distinct, Distinct, Outline Outline Attached Attached -Granulation Amt Small (1-33%) Medium (34-66%) -Granulation Quality Hyper- [place] Hyper- granulation granulation, Pale -Necrosis Amt Small (1-33%) Medium (34-66%) -Necrotic Tissue Type Adherent Slough Adherent Slough -Structure Exposed N/A -Texture (Marie-wound Skin Appearance) Assessed Scarring Assessed -Moisture (Marie-wound Skin Appearance) Assessed Maceration -Color (Marie-wound Skin Appearance) Assessed No Abnormality Assessed -Temperature (Marie-wound Skin No Abnormality No Abnormality Appearance) (Pt Warm) (Pt Warm) -Tenderness on Palpation (Marie-wound No Skin Appearance) -Ulcer Cleansing Soap and Water Soap and Water Soap and Water -Foul Odor after Cleansing No No No -Anesthetic Used 5% Lidocaine 5% Lidocaine 5% Lidocaine Gel Gel Gel WC - Nurse 2 - General Ulcer CM Notes Start: 08/24/24 08:37 Freq: Status: Active Protocol: Activity Type Activity Date Activity User E-sign Co-sign Detail Recorded Client Recorded Date Recorded By Document 08/24/24 09:10 BMF [id number] 08/24/24 09:31 BMF Document 08/31/24 08:59 BMF [id number] 08/31/24 09:05 BMF Document 09/07/24 08:50 BMF [id number] 09/07/24 08:59 BMF Edit Result 09/07/24 08:50 BMF (1) [id number] 09/11/24 12:54 BMF (1) #5 RDorsal/Anterior Ankle - Clinical Debridement => Subcutaneous - Tissue Removed => Subcutaneous - Debridement - Subq, 1st 20sq cm => Yes 08/24/24 08/31/24 09/07/24 09:10 08:59 08:50 Wound Center Nurse 2 #7- R PLANTAR FOOT -Time 09:13 -Post Debridement (cm) - Length 0.1 0 -Post Debridement (cm) - Width 0.1 0 -Post Debridement (cm) - Depth 0.1 0 -Total Square (Post) (cm) 0.01 0 -Area of Debridement (cm) - Length 0.1 0 -Area of Debridement (cm) - Width 0.1 0 -Total Square (Area) (cm) 0.01 0 -Wound/Ulcer Outcome Healed- Epithelialized -Bleeding Controlled with Pressure #5 RDorsal/Anterior Ankle -Time 09:26 08:59 08:51 -Correct Patient Yes Yes Yes -Correct Side, Site, Position Yes Yes Yes -Correct Procedure Yes Yes Yes -Procedure Performed Yes Yes Yes -Type of Procedure Debridement Debridement Debridement -Clinical Debridement Subcutaneous Subcutaneous Subcutaneous -Tissue Removed Subcutaneous Subcutaneous Subcutaneous -Post Debridement (cm) - Length 1.3 1.2 1 -Post Debridement (cm) - Width 1.3 1 1 -Post Debridement (cm) - Depth 0.1 0.1 0.1 -Total Square (Post) (cm) 1.69 1.2 1 -Area of Debridement (cm) - Length 1.3 1.2 1 -Area of Debridement (cm) - Width 1.3 1 1 -Total Square (Area) (cm) 1.69 1.2 1 -Tunneling No No -Undermining/Tunneling No No -Circular Undermining No No -Wound/Ulcer Outcome Not Healed Not Healed Not Healed -Ulcer Cleansing Rinsed/ Rinsed/ Rinsed/ Irrigated with Irrigated with Irrigated with Saline Saline Saline -Foul Odor after Cleansing No No No -Bioengineered Tissue No No No -Bleeding Controlled with Pressure Pressure Pressure -Treatment Response Procedure Procedure Procedure Tolerated Well Tolerated Well Tolerated Well -Debridement - Subq, 1st 20sq cm Yes Yes Yes Pain Scale: 0-10 Numeric Is Patient Pain Free? Yes Yes Yes - Nurse 3 - General Ulcer D/C NN Start: 08/24/24 08:37 Freq: Status: Active Protocol: Activity Type Activity Date Activity User E-sign Co-sign Detail Recorded Client Recorded Date Recorded By Document 08/24/24 09:50 DL [id number] 08/24/24 09:53 DL Document 08/31/24 09:24 DL [id number] 08/31/24 09:26 DL Document 09/07/24 09:24 DL [id number] 09/07/24 09:26 DL 08/24/24 08/31/24 09/07/24 09:50 09:24 09:24 Wound Care Center Nurse 3 #7- R PLANTAR FOOT -Ulcer Cleansing Rinsed/ Irrigated with Saline -Foul Odor after Cleansing No -Primary Dressing Covered/Secured with Dry Gauze & Roll Gauze, Secured with Tape #5 RDorsal/Anterior Ankle -Ulcer Cleansing Soap and Water Rinsed/ Rinsed/ Irrigated with Irrigated with Saline Saline -Foul Odor after Cleansing No No No -Primary Dressing Applied Aquacel Extra, Aquacel Extra,C Collagen Powder Collagen Powder Hydrogel, Collagen Powder -Other Dressing hydrogel -Primary Dressing Covered/Secured with Dry Gauze & Dry Gauze & Dry Gauze & Roll Gauze, Roll Gauze, Roll Gauze, Secured with Secured with Secured with Tape Tape Tape -Other Covering SEBASTIAN ABD -Aquacel Extra 1 1 -Collagen Powder 1 1 1 -Hydrogel 1 RLE -Compression Wrap Sebastian Wrap Sebastian Wrap Treatment Response Procedure Procedure Procedure Tolerated Well Tolerated Well Tolerated Well Pain Scale: 0-10 Numeric Is Patient Pain Free? Yes Yes Yes WC - Visit Discharge Discharge Condition Stable Stable Stable Ambulatory Status Ambulatory, Ambulatory Ambulatory,Cane Walker Transportation Private Auto Private Auto Private Auto Facility Type Home Health Orders Sent Yes Assessment/Plan Assessment/Plan (1) Non-pressure chronic ulcer of other part of right foot with fat layer exposed: CODE(S): L97.512 - Non-pressure chronic ulcer of other part of right foot with fat layer exposed (2) Type 2 diabetes mellitus with diabetic polyneuropathy: CODE(S): E11.42 - Type 2 diabetes mellitus with diabetic polyneuropathy QUALIFIERS: Diabetes mellitus beauty artist insulin use: with skilled nursing use Qualified Code(s): E11.42 - Type 2 diabetes mellitus with diabetic polyneuropathy; Z79.4 - yarn packer (current) use of insulin (3) Type 2 diabetes mellitus with foot ulcer: CODE(S): E11.621 - Type 2 diabetes mellitus with foot ulcer; L97.509 - Non-pressure chronic ulcer of other part of unspecified foot with unspecified severity QUALIFIERS: Diabetes mellitus skilled nursing insulin use: with skilled nursing use Qualified Code(s): E11.621 - Type 2 diabetes mellitus with foot ulcer; L97.509 - Non-pressure chronic ulcer of other part of unspecified foot with unspecified severity; Z79.4 - yarn packer (current) use of insulin (4) Charcot's joint of right foot: CODE(S): M14.671 - Charcot's joint, right ankle and foot PLAN: Plan Patient seen and evaluated Patient is status post I&D of the right foot. DOS 02/10/2024 She is 7 months out of surgery. Cicatrix at incision sites medial foot and anterior leg with no signs of infection. Ulceration dorsal foot continues granulating in well versus her previous visit. She continues healing well at this time and continues HBO dives following tube placement. Ulceration predebridement measures 0.8 cm x 0.8 cm x 0.1 cm Ulceration did undergo debridement as noted on clinical panel above. Postdebridement measurements 0.9 cm x 0.9 cm x 0.1 cm. Has completed all 10 applications of EpiFix #10. Collagen powder moistened with hydrogel applied to the ulcerative bed today. Aquacel Ag and DSD applied. She is to change dressing daily. Her area of previous ulceration to the plantar foot with subdermal hemorrhaging has improved and swelling is resolving post recent fall. Her scant hyperkeratosis at the plantar foot was debrided no expressible purulence from site. I previously discussed with her that I feel she is continuing progression of her new acute Charcot event most likely when she removed her boot to stand barefoot in the shower. Discussed continuing the CAM boot for immobilization and continuing to stay off of her foot is much as possible over the next 6-7 weeks until consolidation can continue to occur. She is understanding of this but this has been difficult. Ulceration demonstrates decrease in size vs previous visit with continued improvement in edema also noted. Overall healing well and progressing towards healing of the dorsal foot ulceration. She still does demonstrate some plantar edema right at site of Charcot arthropathy degeneration, but this continues improving. There is no expressible purulence. But she does cite recent dental work prior to her starting antibiotic and with active Charcot hematogenous spread remains possible thus she will continue her current oral antibiotic, Augmentin 500 mg twice daily x 28 days. Labs were ordered 08/10/24 in addition to updated x-ray of the right foot. Has finished oral Doxycycline and Levofloxacin. WBC from 08/10/2024 is 12.7, ESR 36, CRP 89.20. Radiographs from 08/10/2024 do demonstrate increased osseous destruction with joint fragmentation about the Lisfranc joint and sclerosis consistent with Charcot arthropathy however osteomyelitis cannot be ruled out due to the dorsal foot wound and previous dental work. Will continue to monitor closely. She is understanding if she does develop signs and symptoms of infection which were discussed with her today she is to report to the ED for IV antibiotics as she would have failed outpatient oral antibiotic therapy. I did discuss the labs in detail with her today. She does report some improvement with the additional antibiotic. WBC from 08/28/2024 ED visit was 10.0 all other labs were within normal limits MRI had been approved at [place] prior to visit to hospital, however while in ED that evening MRI was obtained demonstrating acute Charcot changes and soft tissue swelling. No signs of osteomyelitis. She was approved for EpiFix, completed all 10 applications. Due to her acute Charcot event placing her at increased risk for infection she was started on oral antibiotic. Rx doxycycline 100 mg twice daily x 14 days, levofloxacin 750 mg p.o. daily x 14 days and has finished both to completion. Diflucan 150 mg tablet every 72 hours x 3 doses as she does get candidiasis when taking oral antibiotic. Will continue Augmentin. ABX stop date 09/21/2024 Will be permitted to continue protective weightbearing to the right lower extremity in [facility] boot. Has completed all HBO dives. HgbA1c during hospital admission was 11.3% on 02/15/2024. Sugars have been well controlled following approval of insulin on new insurance. Current HgbA1c is 6.8% on 08/10/24. The following work up and care recommendations were made: Dressing: Collagen powder moistened with hydrogel, [employer] Ag, dry sterile dressing right foot. Change daily Wash: Soap and water Tissue growth optimization: Collagen powder and hydrogel Offload: Nonweightbearing to the right lower extremity Vascular: DP and PT pulses palpable with adequate capillary fill time. Vascular status not impacting healing at this time. Edema: Edema well-controlled. Will continue with Tubigrip stocking application Infection: No signs of infection. Currently on IV antibiotics via PICC line. Will continue daptomycin and Unasyn per ID Pain: No pain to the ulcerative site secondary to diabetic peripheral polyneuropathy Host factors: DM type II with peripheral polyneuropathy, uncontrolled. Charcot foot right foot At this time prognosis is good and she continues healing well. However her Charcot event is complicating her healing as swelling remains and foot is unstable. Will continue to monitor for infection as she has had a history of this. I answered all the patient's questions. To return to the wound healing center in 1 week or call sooner if the patient has any questions or concerns.
[2024-09-14 08:35] VITALS: BP 119/68; PULSE 99; RESP 18; TEMP 36.2
== END 2024-09-20 23:59 | disposition home or self-care (01) ==
LOC: WC 08:30
PROVIDERS: PCP Family Medicine; Referring Provider Student in an Organized Health Care Education/Training Program; Visit Provider Student in an Organized Health Care Education/Training Program
DX: E11.621 Type 2 diabetes mellitus with foot ulcer (principal); L97.512 Non-pressure chronic 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; Z79.4 Long term (current) use of insulin; E11.42 Type 2 diabetes mellitus with diabetic polyneuropathy; E11.610 Type 2 diabetes mellitus with diabetic neuropathic arthropathy; Z79.890 Hormone replacement therapy; Z79.899 Other long term (current) drug therapy
CPT/HCPCS: 11042

== ENCOUNTER 2024-10-19 08:30 | Outpatient (RCR) | payer MEDICAID, SELFPAY ==
[2024-09-21 00:19] VITALS: BP 115/62; BP 119/68; BP 143/73; PULSE 103; PULSE 84; PULSE 99; RESP 16; RESP 18; TEMP 35.5; TEMP 36.2
[2024-09-21 08:32] VITALS: BP 141/49; PULSE 80; RESP 16; TEMP 36.2
--- NOTE | 2024-09-21 08:55 | PN.PCM_ITS ---
History of Present Illness Date of Service: 09/21/24 Chief Complaint: Diabetic right foot ulceration History of Wound: Ms. Falk is a 58-year-old currently being seen at the wound center for right foot/ankle ulcer. She is currently undergoing hyperbaric oxygen therapy for the diabetic foot ulceration involving her right foot. She has been under the care of Dr. Jason Lewis, Infection Control Specialist, relative to the management of her diabetic foot ulceration. Review of the patient's medical record indicates that she has tolerated HBOT well and there has been corresponding significant improvement in ulcer. 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 Blood glucose readings have been largely stable. No chest pain, tightness, blurry vision or concerns reported. Subjective Subjective This is a 58-year-old female who continues to follow with the wound care center for right dorsal foot ulceration. She had previously undergone I&D on 02/10/2024 of the right foot. Continues healing of her dorsal ulceration and is changing dressing daily. States ulceration is improving and looking better each week. She does report noticeable decrease in size. Reports swelling post-Charcot event is continuing to improve and she is continuing to feel better. She continues to rest her foot as much as possible with continued immobilizing in CAM boot. Foot remains unstable but is solidifying as she continues undergoing healing. States she continues oral antibiotic as instructed and will finish today. Denies constitutional symptoms. Denies further complaints. Objective Data Objective Data Vital Signs: Vital Signs Temp Pulse Resp BP O2 Del Method 97.2 F L 80 16 141/49 H Room Air 09/21/24 08:32 09/21/24 08:32 09/21/24 08:32 09/21/24 08:32 09/21/24 08:32 Oxygen Delivery Method Room Air Physical Exam Const alert, oriented x3 and no apparent distress General Appearance: cooperative HEENT normocephalic Eyes General Eye: normal appearance of both eyes Neck General: normal visual inspection Lymph Lymphatic: no lymphadenopathy noted and no lymphedema noted Resp normal respiratory effort Cardio regular rate and regular rhythm Extremity no calf tenderness Extremity Narrative: Right lower extremity: Vascular: DP and PT pulses palpable with adequate capillary fill time to the digits. Normal temperature gradient. Hair growth is absent to the digits. Neurologic: Gross sensation intact. Absent protective sensation consistent with diabetic peripheral polyneuropathy Musculoskeletal: No pain to palpation about the ulcerative site secondary to diabetic peripheral polyneuropathy. There is a Charcot foot deformity noted of the right foot. No pain to palpation about the ulcerative site. Dermatologic: Incision site medial foot healed with cicatrix. No signs of infection. Incision site anterior leg with cicatrix proximally and distally. No signs of infection. There is a full thickness ulceration dorsally along the midfoot medial to the incision site with mixed fibrogranular tissue and some hypergranular tissue. Ulceration continues improvement with reduction in size and is progressing well. Ulceration site demonstrates no signs of infection. Plantar foot demonstrates scant hyperkeratosis with some plantar edema secondary to continued Charcot degenerative arthropathy progression, but is improving. No purulence expressible from plantar foot. Skin no rashes or lesions noted Neuro moves all extremities Debridement Note Debridement Note Wound debrided: Right foot Laterality: Right Wound Grade/Stage: Gonzalez stage III Type of Debridement: Excisional debridement Anesthesia Used: 5% Lidocaine Gel Depth: Down to and including healthy tissue and in the subcutaneous layer Percentage of wound debrided: 100 Instrument Used: 5mm curette Tissue Removed: Fibrous, devitalized subcutaneous, biofilm, slough Severity: Fat Layer Exposed Amount of bleeding with debridement: Mild Bleeding Controlled with: Compression and gauze Patient tolerated procedure: Patient tolerated procedure well Post-Debridement Measurements and Additional Note: Post-Debridement Measurements/Treatment - Nurse 1 - General Ulcer Assessment Start: 09/21/24 08:31 Freq: Status: Active Protocol: .FELIPE Activity Type Activity Date Activity User E-sign Co-sign Detail Recorded Client Recorded Date Recorded By Document 09/21/24 08:32 [id number] 09/21/24 08:39 KW 09/21/24 08:32 - Today's Visit Information Type of service Follow-up Visit (Physician/PRIVATE [employer]SE[employer] WORKER ) Arrival Mode Ambulatory, Walker Patient Identification Verified (Name & Yes ) Vital Signs Temperature (97.8 F-99.1 F) 97.2 F L Temperature Source Temporal Pulse Rate (60-100) 80 Pulse Location Monitor Respiratory Rate (12-18) 16 Respiratory rate source Observation Oxygen Delivery Method Room Air Blood Pressure (90/60-120/80) 141/49 H Blood Pressure Mean (mm Hg) 79 Source Monitor Position Sitting Blood Pressure Location Left Arm History Since Last Visit- (Skip if this is Patient's initial visit) Have you changed medications since your No last visit? Any new allergies or adverse reactions No Had a fall/change in ADL's that may No increase risk of falls Signs or symptoms of abuse and/or No neglect since last visit Have you been in the hospital since your No last visit? Has dressing in place as prescribed Yes Has compression in place as prescribed Yes Has offloadiing in place as prescribed Yes Experienced any changes in pain level or No management Left Footwear Regular Shoe Right Footwear Removable Cast Walker/Walking Boot Pain Scale: 0-10 Numeric Is Patient Pain Free? Yes WC - Nurse 1 - General Ulcer Measurement Start: 09/21/24 08:31 Freq: Status: Active Protocol: Activity Type Activity Date Activity User E-sign Co-sign Detail Recorded Client Recorded Date Recorded By Document 09/21/24 08:32 [id number] 09/21/24 08:39 09/21/24 08:32 Wound Center Nurse 1 #5 RDorsal/Anterior Ankle -Current Size (cm) - Length 0.5 -Current Size (cm) - Width 1 -Current Size (cm) - Depth 0 -Total Square Cm 0.5 -Date of Last Picture (Recall this 09/21/24 field) -Exudate Amt Medium -Exudate Type Serous -Wound Margin Distinct, Outline Attached -Granulation Amt Large (67-100%) -Granulation Quality Hyper- granulation, Pale,[place] -Texture (Marie-wound Skin Appearance) Assessed -Moisture (Marie-wound Skin Appearance) Assessed, Maceration -Color (Marie-wound Skin Appearance) Assessed -Temperature (Marie-wound Skin No Abnormality Appearance) (Pt Warm) -Tenderness on Palpation (Marie-wound No Skin Appearance) -Ulcer Cleansing Soap and Water -Anesthetic Used 5% Lidocaine Gel WC - Nurse 2 - General Ulcer CM Notes Start: 09/21/24 08:31 Freq: Status: Active Protocol: Activity Type Activity Date Activity User E-sign Co-sign Detail Recorded Client Recorded Date Recorded By Document 09/21/24 08:47 [facility] [id number] 09/21/24 08:50 [facility] 09/21/24 08:47 Wound Center Nurse 2 -Time 08:47 -Correct Patient Yes -Correct Side, Site, Position Yes -Correct Procedure Yes -Procedure Performed Yes -Type of Procedure Debridement -Clinical Debridement Subcutaneous -Tissue Removed Subcutaneous -Post Debridement (cm) - Length 0.7 -Post Debridement (cm) - Width 0.9 -Post Debridement (cm) - Depth 0.1 -Total Square (Post) (cm) 0.63 -Area of Debridement (cm) - Length 0.7 -Area of Debridement (cm) - Width 0.9 -Total Square (Area) (cm) 0.63 -Tunneling No -Undermining/Tunneling No -Circular Undermining No -Wound/Ulcer Outcome Not Healed -Ulcer Cleansing Rinsed/ Irrigated with Saline -Foul Odor after Cleansing No -Bioengineered Tissue No -Bleeding Controlled with Pressure -Treatment Response Procedure Tolerated Well -Debridement - Subq, 1st 20sq cm Yes Pain Scale: 0-10 Numeric Is Patient Pain Free? Yes Assessment/Plan Assessment/Plan (1) Non-pressure chronic ulcer of other part of right foot with fat layer exposed: CODE(S): L97.512 - Non-pressure chronic ulcer of other part of right foot with fat layer exposed (2) Charcot's joint of right foot: CODE(S): M14.671 - Charcot's joint, right ankle and foot (3) Type 2 diabetes mellitus with diabetic polyneuropathy: CODE(S): E11.42 - Type 2 diabetes mellitus with diabetic polyneuropathy QUALIFIERS: Diabetes mellitus care home insulin use: with care home use Qualified Code(s): E11.42 - Type 2 diabetes mellitus with diabetic polyneuropathy; Z79.4 - [facility] (current) use of insulin (4) Type 2 diabetes mellitus with foot ulcer: CODE(S): E11.621 - Type 2 diabetes mellitus with foot ulcer; L97.509 - Non-pressure chronic ulcer of other part of unspecified foot with unspecified severity QUALIFIERS: Diabetes mellitus care home insulin use: with retail mortgage banker use Qualified Code(s): E11.621 - Type 2 diabetes mellitus with foot ulcer; L97.509 - Non-pressure chronic ulcer of other part of unspecified foot with unspecified severity; Z79.4 - 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 DOS 02/10/2024 She is 7 months out of surgery. Cicatrix at incision sites medial foot and anterior leg with no signs of infection. Ulceration dorsal foot continues granulating in well versus her previous visit. She continues healing well at this time and continues HBO dives following tube placement. Ulceration predebridement measures 0.6 cm x 0.8 cm x 0.1 cm Ulceration did undergo debridement as noted on clinical panel above. Postdebridement measurements 0.7 cm x 0.9 cm x 0.1 cm. Has completed all 10 applications of EpiFix #10. Collagen powder moistened with hydrogel applied to the ulcerative bed today. Aquacel Ag and DSD applied. She is to change dressing daily. Her area of previous ulceration to the plantar foot with subdermal hemorrhaging continues to improve and swelling continues resolving post recent fall. Her scant hyperkeratosis at the plantar foot was debrided no expressible purulence from site. I previously discussed with her that I feel she is continuing progression of her new acute Charcot event most likely when she removed her boot to stand barefoot in the shower. Discussed continuing the CAM boot for immobilization and continuing to stay off of her foot is much as possible over the next 5-6 weeks until consolidation can continue to occur. She is understanding of this but this has been difficult. Ulceration demonstrates decrease in size vs previous visit with continued improvement in edema also noted. Overall healing well and progressing towards healing of the dorsal foot ulceration. She still does demonstrate some plantar edema at site of Charcot arthropathy degeneration, but this continues improving. There is no expressible purulence. But she does cite recent dental work prior to her starting antibiotic and with active Charcot hematogenous spread remains possible thus she will continue her current oral antibiotic, Augmentin 500 mg twice daily x 28 days. Labs were ordered 08/10/24 in addition to updated x-ray of the right foot. Has finished oral Doxycycline and Levofloxacin. WBC from 08/10/2024 is 12.7, ESR 36, CRP 89.20. Radiographs from 08/10/2024 do demonstrate increased osseous destruction with joint fragmentation about the Lisfranc joint and sclerosis consistent with Charcot arthropathy however osteomyelitis cannot be ruled out due to the dorsal foot wound and previous dental work. Will continue to monitor closely. She is understanding if she does develop signs and symptoms of infection which were discussed with her today she is to report to the ED for IV antibiotics as she would have failed outpatient oral antibiotic therapy. I did discuss the labs in detail with her today. She does report some improvement with the additional antibiotic. WBC from 08/28/2024 ED visit was 10.0 all other labs were within normal limits MRI had been approved at [place] prior to visit to hospital, however while in [facility] that evening MRI was obtained demonstrating acute Charcot changes and soft tissue swelling. No signs of osteomyelitis. She was approved for EpiFix, completed all 10 applications. Due to her acute Charcot event placing her at increased risk for infection she was started on oral antibiotic. Doxycycline 100 mg twice daily x 14 days, levofloxacin 750 mg p.o. daily x 14 days and has finished both to completion. Diflucan 150 mg tablet every 72 hours x 3 doses as she does get candidiasis when taking oral antibiotic. Will continue Augmentin to completion. ABX stop date 09/21/2024 Will be permitted to continue protective weightbearing to the right lower extremity in CAM boot. Has completed all HBO dives. HgbA1c during hospital admission was 11.3% on 02/15/2024. Sugars have been well controlled following approval of insulin on new insurance. Current HgbA1c is 6.8% on 08/10/24. The following work up and care recommendations were made: Dressing: Collagen powder moistened with hydrogel, [employer] Ag, dry sterile dressing right foot. Change daily Wash: Soap and water Tissue growth optimization: Collagen powder and hydrogel Offload: Nonweightbearing to the right lower extremity Vascular: DP and PT pulses palpable with adequate capillary fill time. Vascular status not impacting healing at this time. Edema: Edema well-controlled. Will continue with Tubigrip stocking application Infection: No signs of infection. Currently on IV antibiotics via PICC line. Will continue daptomycin and Unasyn per ID Pain: No pain to the ulcerative site secondary to diabetic peripheral polyneuropathy Host factors: DM type II with peripheral polyneuropathy, uncontrolled. Charcot foot right foot At this time prognosis is good and she continues healing well. However her Charcot event is complicating her healing as swelling remains and foot is unstable, but improving as she is healing. Will continue to monitor for infection as she has had a history of this. I answered all the patient's questions. To return to the wound healing center in 1 week or call sooner if the patient has any questions or concerns.
--- NOTE | 2024-09-22 12:04 | WC ---
PHOTO 09/21/24 RIGHT DORSAL ANT ANKLE
[2024-09-28 08:22] VITALS: BP 122/71; PULSE 88; RESP 16; TEMP 36.3
--- NOTE | 2024-09-28 09:21 | PCM.WC.PN ---
History of Present Illness Date of Service: 09/28/24 Chief Complaint: Diabetic right foot ulceration History of Wound: Ms. Falk is a 58-year-old currently being seen at the wound center for right foot/ankle ulcer. She is currently undergoing hyperbaric oxygen therapy for the diabetic foot ulceration involving her right foot. She has been under the care of Dr. Jason Lewis, Meter/Relay Technician, relative to the management of her diabetic foot ulceration. Review of the patient's medical record indicates that she has tolerated HBOT well and there has been corresponding significant improvement in ulcer. 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 Blood glucose readings have been largely stable. No chest pain, tightness, blurry vision or concerns reported. Subjective Subjective This is a 58-year-old female who continues to follow with the wound care center for right dorsal foot ulceration. She had previously undergone I&D on 02/10/2024 of the right foot. Continues healing of her dorsal ulceration and is changing dressing daily. States ulceration is continuing in improvement and getting smaller each week. Reports swelling post-Charcot event is continuing to improve and she is continuing to feel better. She continues to rest her foot as much as possible with continued immobilizing in CAM boot. Foot remains unstable but is undergoing solidification. Denies constitutional symptoms. Denies further complaints. Objective Data Objective Data Vital Signs: Vital Signs Temp Pulse Resp BP O2 Del Method 97.3 F L 88 16 122/71 H Room Air 09/28/24 08:22 09/28/24 08:22 09/28/24 08:22 09/28/24 08:22 09/28/24 08:22 Oxygen Delivery Method Room Air Physical Exam Const alert, oriented x3 and no apparent distress General Appearance: cooperative HEENT normocephalic Eyes General Eye: normal appearance of both eyes Neck General: normal visual inspection Lymph Lymphatic: no lymphadenopathy noted and no lymphedema noted Resp normal respiratory effort Cardio regular rate and regular rhythm Extremity no calf tenderness Extremity Narrative: Right lower extremity: Vascular: DP and PT pulses palpable with adequate capillary fill time to the digits. Normal temperature gradient. Hair growth is absent to the digits. Neurologic: Gross sensation intact. Absent protective sensation consistent with diabetic peripheral polyneuropathy Musculoskeletal: No pain to palpation about the ulcerative site secondary to diabetic peripheral polyneuropathy. There is a Charcot foot deformity noted of the right foot. No pain to palpation about the ulcerative site. Dermatologic: Incision site medial foot healed with cicatrix. No signs of infection. Incision site anterior leg with cicatrix proximally and distally. No signs of infection. There is a full thickness ulceration dorsally along the midfoot medial to the incision site with mixed fibrogranular tissue and some hypergranular tissue. Ulceration continues improvement with reduction in size and is progressing well. Ulceration site demonstrates no signs of infection. Plantar foot demonstrates scant hyperkeratosis with some plantar edema secondary to continued Charcot degenerative arthropathy progression, but is improving. No purulence expressible from plantar foot. Skin no rashes or lesions noted Neuro moves all extremities Debridement Note Debridement Note Wound debrided: Right foot Laterality: Right Wound Grade/Stage: Gonzalez stage III Type of Debridement: Excisional debridement Anesthesia Used: 5% Lidocaine Gel Depth: Down to and including healthy tissue and in the subcutaneous layer Percentage of wound debrided: 100 Instrument Used: #15 blade Tissue Removed: Fibrous, devitalized subcutaneous, biofilm, slough Severity: Fat Layer Exposed Amount of bleeding with debridement: Mild Bleeding Controlled with: Compression and gauze Patient tolerated procedure: Patient tolerated procedure well Post-Debridement Measurements and Additional Note: Post-Debridement Measurements/Treatment - Nurse 1 - General Ulcer Assessment Start: 09/21/24 08:31 Freq: Status: Active Protocol: RUKHSANA Activity Type Activity Date Activity User E-sign Co-sign Detail Recorded Client Recorded Date Recorded By Document 09/21/24 08:32 [id number] 09/21/24 08:39 KW Document 09/28/24 08:22 [id number] 09/28/24 08:26 KW 09/21/24 09/28/24 08:32 08:22 - Today's Visit Information Type of service Follow-up Visit Follow-up Visit (Physician/HEAT TREATER APPRENTICE (Physician/HEAT TREATER APPRENTICE ) ) Arrival Mode Ambulatory, Ambulatory,Cane Walker Patient Identification Verified (Name & Yes Yes ) Vital Signs Temperature (97.8 F-99.1 F) 97.2 F L 97.3 F L Temperature Source Temporal Temporal Pulse Rate (60-100) 80 88 Pulse Location Monitor Monitor Respiratory Rate (12-18) 16 16 Respiratory rate source Observation Observation Oxygen Delivery Method Room Air Room Air Blood Pressure (90/60-120/80) 141/49 H 122/71 H Blood Pressure Mean (mm Hg) 79 88 Source Monitor Monitor Position Sitting Semi-Fowlers Blood Pressure Location Left Arm Right Arm History Since Last Visit- (Skip if this is Patient's initial visit) Have you changed medications since your No No last visit? Any new allergies or adverse reactions No No Had a fall/change in ADL's that may No No increase risk of falls Signs or symptoms of abuse and/or No No neglect since last visit Have you been in the hospital since your No No last visit? Has dressing in place as prescribed Yes Yes Has compression in place as prescribed Yes Yes Has offloadiing in place as prescribed Yes Yes Experienced any changes in pain level or No No management Left Footwear Regular Shoe Regular Shoe Right Footwear Removable Cast Removable Cast Walker/Walking Walker/Walking Boot Boot Pain Scale: 0-10 Numeric Is Patient Pain Free? Yes Yes WC - Nurse 1 - General Ulcer Measurement Start: 09/21/24 08:31 Freq: Status: Active Protocol: Activity Type Activity Date Activity User E-sign Co-sign Detail Recorded Client Recorded Date Recorded By Document 09/21/24 08:32 KW [id number] 09/21/24 08:39 KW Document 09/28/24 08:22 KW [id number] 09/28/24 08:26 KW 09/21/24 09/28/24 08:32 08:22 Wound Center Nurse 1 #5 RDorsal/Anterior Ankle -Current Size (cm) - Length 0.5 0.1 -Current Size (cm) - Width 1 0.1 -Current Size (cm) - Depth 0 0.1 -Total Square Cm 0.5 0.01 -Date of Last Picture (Recall this 09/21/24 09/28/24 field) -Exudate Amt Medium None Present -Exudate Type Serous -Wound Margin Distinct, Outline Attached -Granulation Amt Large (67-100%) Small (1-33%) -Granulation Quality Hyper- Aztec granulation, Pale,Aztec -Texture (Marie-wound Skin Appearance) Assessed Assessed -Moisture (Marie-wound Skin Appearance) Assessed, Assessed Maceration -Color (Marie-wound Skin Appearance) Assessed Assessed -Temperature (Marie-wound Skin No Abnormality No Abnormality Appearance) (Pt Warm) (Pt Warm) -Tenderness on Palpation (Marie-wound No No Skin Appearance) -Ulcer Cleansing Soap and Water Soap and Water -Foul Odor after Cleansing No -Anesthetic Used 5% Lidocaine 5% Lidocaine Gel Gel - Nurse 2 - General Ulcer CM Notes Start: 09/21/24 08:31 Freq: Status: Active Protocol: Activity Type Activity Date Activity User E-sign Co-sign Detail Recorded Client Recorded Date Recorded By Document 09/21/24 08:47 [facility] [id number] 09/21/24 08:50 [facility] Document 09/28/24 08:44 [facility] [id number] 09/28/24 08:53 [facility] 09/21/24 09/28/24 08:47 08:44 Wound Center Nurse 2 #5 RDorsal/Anterior Ankle -Time 08:47 08:44 -Correct Patient Yes Yes -Correct Side, Site, Position Yes Yes -Correct Procedure Yes Yes -Procedure Performed Yes Yes -Type of Procedure Debridement Debridement -Clinical Debridement Subcutaneous Subcutaneous -Tissue Removed Subcutaneous Subcutaneous -Post Debridement (cm) - Length 0.7 0.8 -Post Debridement (cm) - Width 0.9 0.7 -Post Debridement (cm) - Depth 0.1 0.1 -Total Square (Post) (cm) 0.63 0.56 -Area of Debridement (cm) - Length 0.7 0.8 -Area of Debridement (cm) - Width 0.9 0.7 -Total Square (Area) (cm) 0.63 0.56 -Tunneling No No -Undermining/Tunneling No No -Circular Undermining No No -Wound/Ulcer Outcome Not Healed Not Healed -Ulcer Cleansing Rinsed/ Rinsed/ Irrigated with Irrigated with Saline Saline -Foul Odor after Cleansing No No -Bioengineered Tissue No No -Bleeding Controlled with Pressure Pressure -Treatment Response Procedure Procedure Tolerated Well Tolerated Well -Debridement - Subq, 1st 20sq cm Yes Yes Pain Scale: 0-10 Numeric Is Patient Pain Free? Yes Yes - Nurse 3 - General Ulcer D/C NN Start: 09/21/24 08:31 Freq: Status: Active Protocol: Activity Type Activity Date Activity User E-sign Co-sign Detail Recorded Client Recorded Date Recorded By Document 09/21/24 08:59 KW [id number] 09/21/24 09:02 KW Document 09/28/24 09:05 DL [id number] 09/28/24 09:07 DL 09/21/24 09/28/24 08:59 09:05 Wound Care Center Nurse 3 #5 RDorsal/Anterior Ankle -Ulcer Cleansing Rinsed/ Irrigated with Saline -Foul Odor after Cleansing No -Primary Dressing Applied Aquacel Extra -Other Dressing puracol powder Colagen Powder/ from pt with Hydrogel/ hydrogel Aquacel EX -Primary Dressing Covered/Secured with Dry Gauze & Dry Gauze & Roll Gauze, Roll Gauze, Secured with Secured with Tape Tape -Other Covering SEBASTIAN -Aquacel Extra 1 RLE -Compression Wrap Sebastian Wrap -Other 1 Pain Scale: 0-10 Numeric Is Patient Pain Free? Yes Yes WC - Visit Discharge Discharge Condition Stable Stable Ambulatory Status Ambulatory Ambulatory Transportation Private Auto Private Auto Medication Reconcilliation completed & No provided to patient/care provider Clinical Summary of Care Provided Yes Assessment/Plan Assessment/Plan (1) Non-pressure chronic ulcer of other part of right foot with fat layer exposed: CODE(S): L97.512 - Non-pressure chronic ulcer of other part of right foot with fat layer exposed (2) Charcot's joint of right foot: CODE(S): M14.671 - Charcot's joint, right ankle and foot (3) Type 2 diabetes mellitus with diabetic polyneuropathy: CODE(S): E11.42 - Type 2 diabetes mellitus with diabetic polyneuropathy QUALIFIERS: Diabetes mellitus recorder gravity prospecting insulin use: with recorder gravity prospecting use Qualified Code(s): E11.42 - Type 2 diabetes mellitus with diabetic polyneuropathy; Z79.4 - detention (current) use of insulin (4) Type 2 diabetes mellitus with foot ulcer: CODE(S): E11.621 - Type 2 diabetes mellitus with foot ulcer; L97.509 - Non-pressure chronic ulcer of other part of unspecified foot with unspecified severity QUALIFIERS: Diabetes mellitus recorder gravity prospecting insulin use: with recorder gravity prospecting use Qualified Code(s): E11.621 - Type 2 diabetes mellitus with foot ulcer; L97.509 - Non-pressure chronic ulcer of other part of unspecified foot with unspecified severity; Z79.4 - detention (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 DOS 02/10/2024 She is 7 months out of surgery. Cicatrix at incision sites medial foot and anterior leg with no signs of infection. Ulceration dorsal foot continues granulating in well versus her previous visit. She continues healing well at this time and continues HBO dives following tube placement. Ulceration predebridement measures 0.7 cm x 0.6 cm x 0.1 cm Ulceration did undergo debridement as noted on clinical panel above. Postdebridement measurements 0.8 cm x 0.7 cm x 0.1 cm. Has completed all 10 applications of EpiFix #10. Collagen powder moistened with hydrogel applied to the ulcerative bed today. Aquacel Ag and DSD applied. She is to change dressing daily. Her area of previous ulceration to the plantar foot with subdermal hemorrhaging continues to improve and swelling continues resolving post recent fall. Her scant hyperkeratosis at the plantar foot was debrided no expressible purulence from site. I previously discussed with her that I feel she is continuing progression of her new acute Charcot event most likely when she removed her boot to stand barefoot in the shower. Discussed continuing the CAM boot for immobilization and continuing to stay off of her foot is much as possible over the next 4-5 weeks until consolidation can continue to occur. She is understanding of this but this has been difficult. Ulceration demonstrates decrease in size vs previous visit with continued improvement in edema also noted. Overall healing well and progressing towards healing of the dorsal foot ulceration. She still does demonstrate some plantar edema at site of Charcot arthropathy degeneration, but this continues improving. There is no expressible purulence. But she does cite recent dental work prior to her starting antibiotic and with active Charcot hematogenous spread remains possible thus she completed course of oral antibiotic, Augmentin 500 mg twice daily x 28 days. Labs were ordered 08/10/24 in addition to updated x-ray of the right foot. Has finished oral Doxycycline and Levofloxacin and Augmentin. WBC from 08/10/2024 is 12.7, ESR 36, CRP 89.20. Radiographs from 08/10/2024 do demonstrate increased osseous destruction with joint fragmentation about the Lisfranc joint and sclerosis consistent with Charcot arthropathy however osteomyelitis cannot be ruled out due to the dorsal foot wound and previous dental work. Will continue to monitor closely. She is understanding if she does develop signs and symptoms of infection which were discussed with her today she is to report to the ED for IV antibiotics as she would have failed outpatient oral antibiotic therapy. I did discuss the labs in detail with her today. She does report some improvement with the additional antibiotic. WBC from 08/28/2024 ED visit was 10.0 all other labs were within normal limits MRI had been approved at [facility] prior to visit to hospital, however while in ED that evening MRI was obtained demonstrating acute Charcot changes and soft tissue swelling. No signs of osteomyelitis. She was approved for EpiFix, completed all 10 applications. Due to her acute Charcot event placing her at increased risk for infection she was started on oral antibiotic. Doxycycline 100 mg twice daily x 14 days, levofloxacin 750 mg p.o. daily x 14 days and has finished both to completion. Diflucan 150 mg tablet every 72 hours x 3 doses as she does get candidiasis when taking oral antibiotic. Has finished Augmentin to completion. ABX stop date 09/21/2024 Will be permitted to continue protective weightbearing to the right lower extremity in CAM boot. Has completed all HBO dives. HgbA1c during hospital admission was 11.3% on 02/15/2024. Sugars have been well controlled following approval of insulin on new insurance. Current HgbA1c is 6.8% on 08/10/24. The following work up and care recommendations were made: Dressing: Collagen powder moistened with hydrogel, Stemnion Ag, dry sterile dressing right foot. Change daily Wash: Soap and water Tissue growth optimization: Collagen powder and hydrogel Offload: Nonweightbearing to the right lower extremity Vascular: DP and PT pulses palpable with adequate capillary fill time. Vascular status not impacting healing at this time. Edema: Edema well-controlled. Will continue with Tubigrip stocking application Infection: No signs of infection. Currently on IV antibiotics via PICC line. Will continue daptomycin and Unasyn per ID Pain: No pain to the ulcerative site secondary to diabetic peripheral polyneuropathy Host factors: DM type II with peripheral polyneuropathy, uncontrolled. Charcot foot right foot At this time prognosis is good and she continues healing well. However her Charcot event is complicating her healing as swelling despite improvement still persists in addition to unstable foot despite continuing ossification. Will continue to monitor for infection as she has had a history of this. I answered all the patient's questions. To return to the wound healing center in 2 weeks or call sooner if the patient has any questions or concerns.
--- NOTE | 2024-09-28 10:00 | WC ---
PHOTO 09/28/24 RIGHT DORSAL FOOT
[2024-10-12 08:28] VITALS: BP 124/51; PULSE 89; RESP 16; TEMP 36.1
--- NOTE | 2024-10-12 09:32 | PN.PCM_ITS ---
History of Present Illness Date of Service: 10/12/24 Chief Complaint: Diabetic right foot ulceration History of Wound: Ms. Falk is a 58-year-old currently being seen at the wound center for right foot/ankle ulcer. She has finished hyperbaric oxygen therapy for the diabetic foot ulceration involving her right foot. She has been under the care of Dr. Jason Lewis, [employer], relative to the management of her diabetic foot ulceration. Review of the patient's medical record indicates that she has tolerated HBOT well and there has been corresponding significant improvement in ulcer. 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 Blood glucose readings have been largely stable. No chest pain, tightness, blurry vision or concerns reported. Subjective Subjective This is a 58-year-old female who continues to follow with the wound care center for right dorsal foot ulceration. She had previously undergone I&D on 02/10/2024 of the right foot. Continues healing of her dorsal ulceration and is changing dressing daily. States ulceration is continuing in improvement and getting smaller each week. Reports swelling post-Charcot event continues improvement and she is continuing to feel better. She continues to rest her foot as much as possible with continued immobilizing in CAM boot. Foot remains unstable but is undergoing solidification. Does admit to continued back pain with herniated disc. Denies constitutional symptoms. Denies further complaints. Objective Data Objective Data Vital Signs: Vital Signs Temp Pulse Resp BP O2 Del Method 96.9 F L 89 16 124/51 H Room Air 10/12/24 08:28 10/12/24 08:28 10/12/24 08:28 10/12/24 08:28 10/12/24 08:28 Oxygen Delivery Method Room Air Physical Exam Const alert, oriented x3 and no apparent distress General Appearance: cooperative HEENT normocephalic Eyes General Eye: normal appearance of both eyes Neck General: normal visual inspection Lymph Lymphatic: no lymphadenopathy noted and no lymphedema noted Resp normal respiratory effort Cardio regular rate and regular rhythm Extremity no calf tenderness Extremity Narrative: Right lower extremity: Vascular: DP and PT pulses palpable with adequate capillary fill time to the digits. Normal temperature gradient. Hair growth is absent to the digits. Neurologic: Gross sensation intact. Absent protective sensation consistent with diabetic peripheral polyneuropathy Musculoskeletal: No pain to palpation about the ulcerative site secondary to diabetic peripheral polyneuropathy. There is a Charcot foot deformity noted of the right foot. No pain to palpation about the ulcerative site. Dermatologic: Incision site medial foot healed with cicatrix. No signs of infection. Incision site anterior leg with cicatrix proximally and distally. No signs of infection. There is a full thickness ulceration dorsally along the midfoot medial to the incision site with mixed fibrogranular tissue and some hypergranular tissue. Ulceration continues improvement with reduction in size and is progressing well. Ulceration site demonstrates no signs of infection. Plantar foot demonstrates scant hyperkeratosis with some plantar edema secondary to continued Charcot degenerative arthropathy progression, but is improving. No purulence expressible from plantar foot. Skin no rashes or lesions noted Neuro moves all extremities Debridement Note Debridement Note Wound debrided: Right foot Laterality: Right Wound Grade/Stage: Gonzalez stage III Type of Debridement: Excisional debridement Anesthesia Used: 5% Lidocaine Gel Depth: Down to and including healthy tissue and in the subcutaneous layer Percentage of wound debrided: 100 Instrument Used: 5mm curette Tissue Removed: Fibrous, devitalized subcutaneous, biofilm, slough Severity: Fat Layer Exposed Amount of bleeding with debridement: Mild Bleeding Controlled with: Compression and gauze Patient tolerated procedure: Patient tolerated procedure well Post-Debridement Measurements and Additional Note: Post-Debridement Measurements/Treatment - Nurse 1 - General Ulcer Assessment Start: 09/21/24 08:31 Freq: Status: Active Protocol: .FELIPE Activity Type Activity Date Activity User E-sign Co-sign Detail Recorded Client Recorded Date Recorded By Document 09/21/24 08:32 KW [id number] 09/21/24 08:39 KW Document 09/28/24 08:22 KW [id number] 09/28/24 08:26 KW Document 10/12/24 08:28 KW [id number] 10/12/24 08:34 KW 09/21/24 09/28/24 10/12/24 08:32 08:22 08:28 - Today's Visit Information Type of service Follow-up Visit Follow-up Visit Follow-up Visit (Physician/WARDROBE STYLIST (Physician/WARDROBE STYLIST (Physician/WARDROBE STYLIST ) ) ) Arrival Mode Ambulatory, Ambulatory,Cane Ambulatory,Cane Walker Patient Identification Verified (Name & Yes Yes Yes ) Vital Signs Temperature (97.8 F-99.1 F) 97.2 F L 97.3 F L 96.9 F L Temperature Source Temporal Temporal Temporal Pulse Rate (60-100) 80 88 89 Pulse Location Monitor Monitor Monitor Respiratory Rate (12-18) 16 16 16 Respiratory rate source Observation Observation Observation Oxygen Delivery Method Room Air Room Air Room Air Blood Pressure (90/60-120/80) 141/49 H 122/71 H 124/51 H Blood Pressure Mean (mm Hg) 79 88 75 Source Monitor Monitor Monitor Position Sitting Semi-Fowlers Semi-Fowlers Blood Pressure Location Left Arm Right Arm Left Arm History Since Last Visit- (Skip if this is Patient's initial visit) Have you changed medications since your No No No last visit? Any new allergies or adverse reactions No No No Had a fall/change in ADL's that may No No No increase risk of falls Signs or symptoms of abuse and/or No No No neglect since last visit Have you been in the hospital since your No No No last visit? Has dressing in place as prescribed Yes Yes Yes Has compression in place as prescribed Yes Yes Yes Has offloadiing in place as prescribed Yes Yes Yes Experienced any changes in pain level or No No No management Left Footwear Regular Shoe Regular Shoe Regular Shoe Right Footwear Removable Cast Removable Cast Removable Cast Walker/Walking Walker/Walking Walker/Walking Boot Boot Boot Pain Scale: 0-10 Numeric Is Patient Pain Free? Yes Yes Yes WC - Nurse 1 - General Ulcer Measurement Start: 09/21/24 08:31 Freq: Status: Active Protocol: Activity Type Activity Date Activity User E-sign Co-sign Detail Recorded Client Recorded Date Recorded By Document 09/21/24 08:32 KW [id number] 09/21/24 08:39 KW Document 09/28/24 08:22 KW [id number] 09/28/24 08:26 KW Document 10/12/24 08:28 KW [id number] 10/12/24 08:34 KW 09/21/24 09/28/24 10/12/24 08:32 08:22 08:28 Wound Center Nurse 1 #5 RDorsal/Anterior Ankle -Current Size (cm) - Length 0.5 0.1 1 -Current Size (cm) - Width 1 0.1 0.5 -Current Size (cm) - Depth 0 0.1 0.1 -Total Square Cm 0.5 0.01 0.5 -Date of Last Picture (Recall this 09/21/24 09/28/24 field) -Exudate Amt Medium None Present Large -Exudate Type Serous Serosanguineous -Wound Margin Distinct, Distinct, Outline Outline Attached Attached -Granulation Amt Large (67-100%) Small (1-33%) Large (67-100%) -Granulation Quality Hyper- [place] granulation, Pale,[place] -Necrosis Amt Small (1-33%) -Necrotic Tissue Type Adherent Slough -Texture (Marie-wound Skin Appearance) Assessed Assessed Assessed -Moisture (Marie-wound Skin Appearance) Assessed, Assessed Assessed, Maceration Maceration -Color (Marie-wound Skin Appearance) Assessed Assessed Assessed -Temperature (Marie-wound Skin No Abnormality No Abnormality No Abnormality Appearance) (Pt Warm) (Pt Warm) (Pt Warm) -Tenderness on Palpation (Marie-wound No No No Skin Appearance) -Ulcer Cleansing Soap and Water Soap and Water Soap and Water -Foul Odor after Cleansing No No -Anesthetic Used 5% Lidocaine 5% Lidocaine 5% Lidocaine Gel Gel Gel WC - Nurse 2 - General Ulcer CM Notes Start: 09/21/24 08:31 Freq: Status: Active Protocol: Activity Type Activity Date Activity User E-sign Co-sign Detail Recorded Client Recorded Date Recorded By Document 09/21/24 08:47 [facility] [id number] 09/21/24 08:50 [facility] Document 09/28/24 08:44 [facility] [id number] 09/28/24 08:53 [facility] Document 10/12/24 08:56 [facility] [id number] 10/12/24 08:58 [facility] 09/21/24 09/28/24 10/12/24 08:47 08:44 08:56 Wound Center Nurse 2 #5 RDorsal/Anterior Ankle -Time 08:47 08:44 08:57 -Correct Patient Yes Yes Yes -Correct Side, Site, Position Yes Yes Yes -Correct Procedure Yes Yes Yes -Procedure Performed Yes Yes Yes -Type of Procedure Debridement Debridement Debridement -Clinical Debridement Subcutaneous Subcutaneous Subcutaneous -Tissue Removed Subcutaneous Subcutaneous Subcutaneous -Post Debridement (cm) - Length 0.7 0.8 0.5 -Post Debridement (cm) - Width 0.9 0.7 0.5 -Post Debridement (cm) - Depth 0.1 0.1 0.1 -Total Square (Post) (cm) 0.63 0.56 0.25 -Area of Debridement (cm) - Length 0.7 0.8 0.5 -Area of Debridement (cm) - Width 0.9 0.7 0.5 -Total Square (Area) (cm) 0.63 0.56 0.25 -Tunneling No No No -Undermining/Tunneling No No No -Circular Undermining No No No -Wound/Ulcer Outcome Not Healed Not Healed Not Healed -Ulcer Cleansing Rinsed/ Rinsed/ Rinsed/ Irrigated with Irrigated with Irrigated with Saline Saline Saline -Foul Odor after Cleansing No No No -Bioengineered Tissue No No No -Bleeding Controlled with Pressure Pressure Pressure -Treatment Response Procedure Procedure Procedure Tolerated Well Tolerated Well Tolerated Well -Debridement - Subq, 1st 20sq cm Yes Yes Yes Pain Scale: 0-10 Numeric Is Patient Pain Free? Yes Yes Yes WC - Nurse 3 - General Ulcer D/C NN Start: 09/21/24 08:31 Freq: Status: Active Protocol: Activity Type Activity Date Activity User E-sign Co-sign Detail Recorded Client Recorded Date Recorded By Document 09/21/24 08:59 KW [id number] 09/21/24 09:02 KW Document 09/28/24 09:05 DL [id number] 09/28/24 09:07 DL Document 10/12/24 09:04 [facility] [id number] 10/12/24 09:05 BM 09/21/24 09/28/24 10/12/24 08:59 09:05 09:04 Wound Care Center Nurse 3 #5 RDorsal/Anterior Ankle -Ulcer Cleansing Rinsed/ Rinsed/ Irrigated with Irrigated with Saline Saline -Foul Odor after Cleansing No No -Primary Dressing Applied Aquacel Extra Aquacel Extra,C Hydrogel, Collagen Powder -Other Dressing puracol powder Colagen Powder/ from pt with Hydrogel/ hydrogel Aquacel EX -Primary Dressing Covered/Secured with Dry Gauze & Dry Gauze & Dry Gauze & Roll Gauze, Roll Gauze, Roll Gauze, Secured with Secured with Secured with Tape Tape Tape -Other Covering SEBASTIAN -Aquacel Extra 1 1 -Collagen Powder 1 -Hydrogel 1 RLE -Compression Wrap Sebastian Wrap Sebastian Wrap -Other 1 to secure Pain Scale: 0-10 Numeric Is Patient Pain Free? Yes Yes Yes WC - Visit Discharge Discharge Condition Stable Stable Stable Ambulatory Status Ambulatory Ambulatory Ambulatory,Cane Transportation Private Auto Private Auto Private Auto Medication Reconcilliation completed & No provided to patient/care provider Clinical Summary of Care Provided Yes Assessment/Plan Assessment/Plan (1) Non-pressure chronic ulcer of other part of right foot with fat layer exposed: CODE(S): L97.512 - Non-pressure chronic ulcer of other part of right foot with fat layer exposed (2) Charcot's joint of right foot: CODE(S): M14.671 - Charcot's joint, right ankle and foot (3) Type 2 diabetes mellitus with diabetic polyneuropathy: CODE(S): E11.42 - Type 2 diabetes mellitus with diabetic polyneuropathy QUALIFIERS: Diabetes mellitus mcfp insulin use: with mcfp use Qualified Code(s): E11.42 - Type 2 diabetes mellitus with diabetic polyneuropathy; Z79.4 - [facility] (current) use of insulin (4) Type 2 diabetes mellitus with foot ulcer: CODE(S): E11.621 - Type 2 diabetes mellitus with foot ulcer; L97.509 - Non-pressure chronic ulcer of other part of unspecified foot with unspecified severity QUALIFIERS: Diabetes mellitus intermediate teacher insulin use: with intermediate teacher use Qualified Code(s): E11.621 - Type 2 diabetes mellitus with foot ulcer; L97.509 - Non-pressure chronic ulcer of other part of unspecified foot with unspecified severity; Z79.4 - [facility] (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 DOS 02/10/2024 She is 8 months out of surgery. Cicatrix at incision sites medial foot and anterior leg with no signs of infection. Ulceration dorsal foot continues granulating in well versus her previous visit. She continues healing well at this time and continues HBO dives following tube placement. Ulceration predebridement measures 0.4 cm x 0.4 cm x 0.1 cm Ulceration did undergo debridement as noted on clinical panel above. Postdebridement measurements 0.5 cm x 0.5 cm x 0.1 cm. Has completed all 10 applications of EpiFix #10. Collagen powder moistened with hydrogel applied to the ulcerative bed today. Aquacel Ag and DSD applied. She is to change dressing daily. Her area of previous ulceration to the plantar foot with subdermal hemorrhaging continues improvement and swelling continues resolving post recent fall. Her scant hyperkeratosis at the plantar foot was debrided no expressible purulence from site. I previously discussed with her that I feel she did experience continued progression of her new acute Charcot event most likely when she removed her boot to stand barefoot in the shower. Discussed continuing the CAM boot for immobilization and continuing to stay off of her foot is much as possible over the next 5 weeks until consolidation can continue to occur. She is understanding of this but this has been difficult. Ulceration demonstrates continued decrease in size vs previous visit with continued improvement in edema also noted. Overall healing well and progressing towards healing of the dorsal foot ulceration. She still does demonstrate some plantar edema at site of Charcot arthropathy degeneration, but this continues improving. There is no expressible purulence. But she does cite recent dental work prior to her starting antibiotic and with active Charcot hematogenous spread remains possible thus she completed course of oral antibiotic, Augmentin 500 mg twice daily x 28 days. Labs were ordered 08/10/24 in addition to updated x-ray of the right foot. Has completed course of oral Doxycycline, Levofloxacin and Augmentin. WBC from 08/10/2024 is 12.7, ESR 36, CRP 89.20. Radiographs from 08/10/2024 do demonstrate increased osseous destruction with joint fragmentation about the Lisfranc joint and sclerosis consistent with Charcot arthropathy however osteomyelitis cannot be ruled out due to the dorsal foot wound and previous dental work. Will continue to monitor closely. She is understanding if she does develop signs and symptoms of infection which were discussed with her today she is to report to the ED for IV antibiotics as she would have failed outpatient oral antibiotic therapy. I did discuss the labs in detail with her today. She does report some improvement with the additional antibiotic. WBC from 08/28/2024 ED visit was 10.0 all other labs were within normal limits MRI had been approved at [facility] prior to visit to hospital, however while in ED that evening on 08/28/24 MRI was obtained demonstrating acute Charcot changes and soft tissue swelling. No signs of osteomyelitis. She was approved for EpiFix, completed all 10 applications. Will be permitted to continue protective weightbearing to the right lower extremity in CAM boot. Has completed all HBO dives. HgbA1c during hospital admission was 11.3% on 02/15/2024. Sugars have been well controlled following approval of insulin on new insurance. Current HgbA1c is 6.8 % on 08/10/24. The following work up and care recommendations were made: Dressing: Collagen powder moistened with hydrogel, Aquacel Ag, dry sterile dressing right foot. Change daily Wash: Soap and water Tissue growth optimization: Collagen powder and hydrogel Offload: Nonweightbearing to the right lower extremity Vascular: DP and PT pulses palpable with adequate capillary fill time. Vascular status not impacting healing at this time. Edema: Edema well-controlled. Will continue with Tubigrip stocking application Infection: No signs of infection. Currently on IV antibiotics via PICC line. W ill continue daptomycin and Unasyn per ID Pain: No pain to the ulcerative site secondary to diabetic peripheral polyneuropathy Host factors: DM type II with peripheral polyneuropathy, uncontrolled. Charcot foot right foot At this time prognosis is good and she continues healing well. However her Charcot event is complicating her healing as swelling, despite improvement still persists in addition to unstable foot despite continuing ossification. Will continue to monitor for infection as she has had a history of this. I answered all the patient's questions. To return to the wound healing center in 1 week or call sooner if the patient has any questions or concerns.
[2024-10-19 08:25] VITALS: BP 144/64; PULSE 92; RESP 18; TEMP 35.7
--- NOTE | 2024-10-19 09:40 | PCM.WC.PN ---
History of Present Illness Date of Service: 10/19/24 Chief Complaint: Diabetic right foot ulceration History of Wound: Ms. Falk is a 58-year-old currently being seen at the wound center for right foot/ankle ulcer. She has finished hyperbaric oxygen therapy for the diabetic foot ulceration involving her right foot. She has been under the care of Dr. Jason Lewis, Private Wealth Advisor, relative to the management of her diabetic foot ulceration. Review of the patient's medical record indicates that she has tolerated HBOT well and there has been corresponding significant improvement in ulcer. 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 Blood glucose readings have been largely stable. No chest pain, tightness, blurry vision or concerns reported. Subjective Subjective This is a 58-year-old female who continues to follow with the wound care center for right dorsal foot ulceration. She had previously undergone I&D on 02/10/2024 of the right foot. Continues healing of her dorsal ulceration and is changing dressing daily. Ulceration continues improvement and getting smaller. Reports new Charcot event with some bruising on the lateral foot and some plantar edema. States some pain to the foot but has improved with remaining off of this over the long holiday weekend. She continues to rest her foot as much as possible with continued immobilizing in CAM boot. Foot remains unstable due to new event. Does admit to continued back pain with herniated disc which makes ambulation difficult. Denies constitutional symptoms. Denies further complaints. Objective Data Objective Data Vital Signs: Vital Signs Temp Pulse Resp BP O2 Del Method 96.3 F L 92 18 144/64 H Room Air 10/19/24 08:25 10/19/24 08:25 10/19/24 08:25 10/19/24 08:25 10/12/24 08:28 Oxygen Delivery Method Room Air Physical Exam Const alert, oriented x3 and no apparent distress General Appearance: cooperative HEENT normocephalic Eyes General Eye: normal appearance of both eyes Neck General: normal visual inspection Lymph Lymphatic: no lymphadenopathy noted and no lymphedema noted Resp normal respiratory effort Cardio regular rate and regular rhythm Extremity no calf tenderness Extremity Narrative: Right lower extremity: Vascular: DP and PT pulses palpable with adequate capillary fill time to the digits. Normal temperature gradient. Hair growth is absent to the digits. Neurologic: Gross sensation intact. Absent protective sensation consistent with diabetic peripheral polyneuropathy Musculoskeletal: No pain to palpation about the ulcerative site secondary to diabetic peripheral polyneuropathy. There is a Charcot foot deformity noted of the right foot. No pain to palpation about the ulcerative site. Dermatologic: Incision site medial foot healed with cicatrix. No signs of infection. Incision site anterior leg with cicatrix proximally and distally. No signs of infection. There is a full thickness ulceration dorsally along the midfoot medial to the incision site with mixed fibrogranular tissue. Ulceration continues improvement with reduction in size and is progressing well. Ulceration site demonstrates no signs of infection. Plantar foot demonstrates scant hyperkeratosis with some plantar edema secondary to continued Charcot degenerative arthropathy progression. New event did occur since last visit with some resolving ecchymosis to lateral foot. No purulence expressible from plantar foot. Skin no rashes or lesions noted Neuro moves all extremities Debridement Note Debridement Note Wound debrided: Right dorsal foot Laterality: Right Wound Grade/Stage: Gonzalez stage III Type of Debridement: Excisional debridement Anesthesia Used: 5% Lidocaine Gel Depth: Down to and including healthy tissue and in the subcutaneous layer Percentage of wound debrided: 100 Instrument Used: #15 blade Tissue Removed: Fibrous, devitalized subcutaneous, biofilm, slough Severity: Fat Layer Exposed Amount of bleeding with debridement: Mild Bleeding Controlled with: Compression and gauze Patient tolerated procedure: Patient tolerated procedure well Post-Debridement Measurements and Additional Note: Post-Debridement Measurements/Treatment - Nurse 1 - General Ulcer Assessment Start: 09/21/24 08:31 Freq: Status: Active Protocol: RUKHSANA Activity Type Activity Date Activity User E-sign Co-sign Detail Recorded Client Recorded Date Recorded By Document 09/21/24 08:32 KW [id number] 09/21/24 08:39 KW Document 09/28/24 08:22 KW [id number] 09/28/24 08:26 KW Document 10/12/24 08:28 KW [id number] 10/12/24 08:34 KW Document 10/19/24 08:25 JF [id number] 10/19/24 08:30 JF 09/21/24 09/28/24 10/12/24 08:32 08:22 08:28 - Today's Visit Information Type of service Follow-up Visit Follow-up Visit Follow-up Visit (Physician/ELECTRON TUBE ASSEMBLER (Physician/ELECTRON TUBE ASSEMBLER (Physician/ELECTRON TUBE ASSEMBLER ) ) ) Arrival Mode Ambulatory, Ambulatory,Cane Ambulatory,Cane Walker Transfer Assistance Patient Identification Verified (Name & Yes Yes Yes ) Patient Requires Transmission-Based Precautions Finger Stick Blood Sugar(mg/dl) (if indicated): Blood Sugar Vital Signs Temperature (97.8 F-99.1 F) 97.2 F L 97.3 F L 96.9 F L Temperature Source Temporal Temporal Temporal Pulse Rate (60-100) 80 88 89 Pulse Location Monitor Monitor Monitor Respiratory Rate (12-18) 16 16 16 Respiratory rate source Observation Observation Observation Oxygen Delivery Method Room Air Room Air Room Air Blood Pressure (90/60-120/80) 141/49 H 122/71 H 124/51 H Blood Pressure Mean (mm Hg) 79 88 75 Source Monitor Monitor Monitor Position Sitting Semi-Fowlers Semi-Fowlers Blood Pressure Location Left Arm Right Arm Left Arm History Since Last Visit- (Skip if this is Patient's initial visit) Have you changed medications since your No No No last visit? Any new allergies or adverse reactions No No No Had a fall/change in ADL's that may No No No increase risk of falls Signs or symptoms of abuse and/or No No No neglect since last visit Have you been in the hospital since your No No No last visit? Has dressing in place as prescribed Yes Yes Yes Has compression in place as prescribed Yes Yes Yes Has offloadiing in place as prescribed Yes Yes Yes Experienced any changes in pain level or No No No management Left Footwear Regular Shoe Regular Shoe Regular Shoe Right Footwear Removable Cast Removable Cast Removable Cast Walker/Walking Walker/Walking Walker/Walking Boot Boot Boot Pain Scale: 0-10 Numeric Is Patient Pain Free? Yes Yes Yes 10/19/24 08:25 - Today's Visit Information Type of service Follow-up Visit (Physician/ELECTRON TUBE ASSEMBLER ) Arrival Mode Ambulatory, Walker Transfer Assistance Manual Patient Identification Verified (Name & Yes ) Patient Requires Transmission-Based No Precautions Finger Stick Blood Sugar(mg/dl) (if 148 indicated): Blood Sugar Stated by Patient Vital Signs Temperature (97.8 F-99.1 F) 96.3 F L Temperature Source Temporal Pulse Rate (60-100) 92 Pulse Location Monitor Respiratory Rate (12-18) 18 Respiratory rate source Observation Oxygen Delivery Method Blood Pressure (90/60-120/80) 144/64 H Blood Pressure Mean (mm Hg) 90 Source Monitor Position Semi-Fowlers Blood Pressure Location Left Arm History Since Last Visit- (Skip if this is Patient's initial visit) Have you changed medications since your No last visit? Any new allergies or adverse reactions No Had a fall/change in ADL's that may No increase risk of falls Signs or symptoms of abuse and/or No neglect since last visit Have you been in the hospital since your No last visit? Has dressing in place as prescribed Yes Has compression in place as prescribed N/A Has offloadiing in place as prescribed Yes Experienced any changes in pain level or No management Left Footwear Surgical Shoe with pressure relief insole Right Footwear Regular Shoe Pain Scale: 0-10 Numeric Is Patient Pain Free? Yes WC - Nurse 1 - General Ulcer Measurement Start: 09/21/24 08:31 Freq: Status: Active Protocol: Activity Type Activity Date Activity User E-sign Co-sign Detail Recorded Client Recorded Date Recorded By Document 09/21/24 08:32 KW [id number] 09/21/24 08:39 KW Document 09/28/24 08:22 KW [id number] 09/28/24 08:26 KW Document 10/12/24 08:28 KW [id number] 10/12/24 08:34 KW Document 10/19/24 08:25 JF [id number] 10/19/24 08:30 JF 09/21/24 09/28/24 10/12/24 08:32 08:22 08:28 Wound Center Nurse 1 #5 RDorsal/Anterior Ankle -Combined with other wound -Current Size (cm) - Length 0.5 0.1 1 -Current Size (cm) - Width 1 0.1 0.5 -Current Size (cm) - Depth 0 0.1 0.1 -Total Square Cm 0.5 0.01 0.5 -Date of Last Picture (Recall this 09/21/24 09/28/24 field) -Photo Taken -Epithelialization -Tunneling -Undermining/Tunneling -Circular Undermining -Exudate Amt Medium None Present Large -Exudate Type Serous Serosanguineous -Wound Margin Distinct, Distinct, Outline Outline Attached Attached -Granulation Amt Large (67-100%) Small (1-33%) Large (67-100%) -Granulation Quality Hyper- Wheatley Wheatley granulation, Pale,Wheatley -Slough/Fibrin -Necrosis Amt Small (1-33%) -Necrotic Tissue Type Adherent Slough -Structure Exposed -Texture (Marie-wound Skin Appearance) Assessed Assessed Assessed -Moisture (Marie-wound Skin Appearance) Assessed, Assessed Assessed, Maceration Maceration -Color (Marie-wound Skin Appearance) Assessed Assessed Assessed -Temperature (Marie-wound Skin No Abnormality No Abnormality No Abnormality Appearance) (Pt Warm) (Pt Warm) (Pt Warm) -Tenderness on Palpation (Marie-wound No No No Skin Appearance) -Ulcer Cleansing Soap and Water Soap and Water Soap and Water -Foul Odor after Cleansing No No -Anesthetic Used 5% Lidocaine 5% Lidocaine 5% Lidocaine Gel Gel Gel Lower Limb Edema Present 10/19/24 08:25 Wound Center Nurse 1 #5 RDorsal/Anterior Ankle -Combined with other wound No -Current Size (cm) - Length 1.5 -Current Size (cm) - Width 0.5 -Current Size (cm) - Depth 0.1 -Total Square Cm 0.75 -Date of Last Picture (Recall this field) -Photo Taken Yes -Epithelialization Small 1-33% -Tunneling No -Undermining/Tunneling No -Circular Undermining No -Exudate Amt Small -Exudate Type Serosanguineous -Wound Margin Flat & Intact -Granulation Amt Small (1-33%) -Granulation Quality Pale -Slough/Fibrin Yes -Necrosis Amt Medium (34-66%) -Necrotic Tissue Type Adherent Slough -Structure Exposed N/A -Texture (Marie-wound Skin Appearance) Assessed, Localized Edema -Moisture (Marie-wound Skin Appearance) Assessed, Maceration -Color (Marie-wound Skin Appearance) Assessed -Temperature (Marie-wound Skin No Abnormality Appearance) (Pt Warm) -Tenderness on Palpation (Marie-wound No Skin Appearance) -Ulcer Cleansing Rinsed/ Irrigated with Saline -Foul Odor after Cleansing No -Anesthetic Used 5% Lidocaine Gel Lower Limb Edema Present NA WC - Nurse 2 - General Ulcer CM Notes Start: 09/21/24 08:31 Freq: Status: Active Protocol: Activity Type Activity Date Activity User E-sign Co-sign Detail Recorded Client Recorded Date Recorded By Document 09/21/24 08:47 BMF [id number] 09/21/24 08:50 BMF Document 09/28/24 08:44 [facility] [id number] 09/28/24 08:53 [facility] Document 10/12/24 08:56 [facility] [id number] 10/12/24 08:58 [facility] Document 10/19/24 08:44 [facility] [id number] 10/19/24 08:54 [facility] 09/21/24 09/28/24 10/12/24 08:47 08:44 08:56 Wound Center Nurse 2 #5 RDorsal/Anterior Ankle -Time 08:47 08:44 08:57 -Correct Patient Yes Yes Yes -Correct Side, Site, Position Yes Yes Yes -Correct Procedure Yes Yes Yes -Procedure Performed Yes Yes Yes -Type of Procedure Debridement Debridement Debridement -Clinical Debridement Subcutaneous Subcutaneous Subcutaneous -Tissue Removed Subcutaneous Subcutaneous Subcutaneous -Post Debridement (cm) - Length 0.7 0.8 0.5 -Post Debridement (cm) - Width 0.9 0.7 0.5 -Post Debridement (cm) - Depth 0.1 0.1 0.1 -Total Square (Post) (cm) 0.63 0.56 0.25 -Area of Debridement (cm) - Length 0.7 0.8 0.5 -Area of Debridement (cm) - Width 0.9 0.7 0.5 -Total Square (Area) (cm) 0.63 0.56 0.25 -Tunneling No No No -Undermining/Tunneling No No No -Circular Undermining No No No -Wound/Ulcer Outcome Not Healed Not Healed Not Healed -Ulcer Cleansing Rinsed/ Rinsed/ Rinsed/ Irrigated with Irrigated with Irrigated with Saline Saline Saline -Foul Odor after Cleansing No No No -Bioengineered Tissue No No No -Bleeding Controlled with Pressure Pressure Pressure -Treatment Response Procedure Procedure Procedure Tolerated Well Tolerated Well Tolerated Well -Debridement - Subq, 1st 20sq cm Yes Yes Yes Pain Scale: 0-10 Numeric Is Patient Pain Free? Yes Yes Yes 10/19/24 08:44 Wound Center Nurse 2 #5 RDorsal/Anterior Ankle -Time 08:44 -Correct Patient Yes -Correct Side, Site, Position Yes -Correct Procedure Yes -Procedure Performed Yes -Type of Procedure Debridement -Clinical Debridement Subcutaneous -Tissue Removed Subcutaneous -Post Debridement (cm) - Length 0.5 -Post Debridement (cm) - Width 0.5 -Post Debridement (cm) - Depth 0.1 -Total Square (Post) (cm) 0.25 -Area of Debridement (cm) - Length 0.5 -Area of Debridement (cm) - Width 0.5 -Total Square (Area) (cm) 0.25 -Tunneling No -Undermining/Tunneling No -Circular Undermining No -Wound/Ulcer Outcome Not Healed -Ulcer Cleansing Rinsed/ Irrigated with Saline -Foul Odor after Cleansing No -Bioengineered Tissue No -Bleeding Controlled with Pressure -Treatment Response Procedure Tolerated Well -Debridement - Subq, 1st 20sq cm Yes Pain Scale: 0-10 Numeric Is Patient Pain Free? Yes - Nurse 3 - General Ulcer D/C NN Start: 09/21/24 08:31 Freq: Status: Active Protocol: Activity Type Activity Date Activity User E-sign Co-sign Detail Recorded Client Recorded Date Recorded By Document 09/21/24 08:59 KW [id number] 09/21/24 09:02 KW Document 09/28/24 09:05 DL [id number] 09/28/24 09:07 DL Document 10/12/24 09:04 [facility] [id number] 10/12/24 09:05 [facility] Document 10/19/24 09:10 JF [id number] 10/19/24 09:11 JF 09/21/24 09/28/24 10/12/24 08:59 09:05 09:04 Wound Care Center Nurse 3 #5 RDorsal/Anterior Ankle -Ulcer Cleansing Rinsed/ Rinsed/ Irrigated with Irrigated with Saline Saline -Foul Odor after Cleansing No No -Primary Dressing Applied Aquacel Extra Aquacel Extra,C Hydrogel, Collagen Powder -Other Dressing puracol powder Colagen Powder/ from pt with Hydrogel/ hydrogel Aquacel EX -Primary Dressing Covered/Secured with Dry Gauze & Dry Gauze & Dry Gauze & Roll Gauze, Roll Gauze, Roll Gauze, Secured with Secured with Secured with Tape Tape Tape -Other Covering SEBASTIAN -Aquacel Extra 1 1 -Collagen Powder 1 -Hydrogel 1 RLE -Compression Wrap Sebastian Wrap Sebastian Wrap -Other 1 to secure Pain Scale: 0-10 Numeric Is Patient Pain Free? Yes Yes Yes WC - Visit Discharge Discharge Condition Stable Stable Stable Ambulatory Status Ambulatory Ambulatory Ambulatory,Cane Transportation Private Auto Private Auto Private Auto Medication Reconcilliation completed & No provided to patient/care provider Clinical Summary of Care Provided Yes 10/19/24 09:10 Wound Care Center Nurse 3 #5 RDorsal/Anterior Ankle -Ulcer Cleansing Rinsed/ Irrigated with Saline -Foul Odor after Cleansing No -Primary Dressing Applied -Other Dressing patient's supply-puraply/ hydrogel and aquacel-extra -Primary Dressing Covered/Secured with Dry Gauze & Roll Gauze, Secured with Tape -Other Covering -Aquacel Extra -Collagen Powder -Hydrogel RLE -Compression Wrap Sebastian Wrap -Other Pain Scale: 0-10 Numeric Is Patient Pain Free? Yes WC - Visit Discharge Discharge Condition Stable Ambulatory Status Ambulatory, Walker Transportation Private Auto Medication Reconcilliation completed & Yes provided to patient/care provider Clinical Summary of Care Provided Yes Assessment/Plan Assessment/Plan (1) Non-pressure chronic ulcer of other part of right foot with fat layer exposed: CODE(S): L97.512 - Non-pressure chronic ulcer of other part of right foot with fat layer exposed (2) Charcot's joint of right foot: CODE(S): M14.671 - Charcot's joint, right ankle and foot (3) Type 2 diabetes mellitus with diabetic polyneuropathy: CODE(S): E11.42 - Type 2 diabetes mellitus with diabetic polyneuropathy QUALIFIERS: Diabetes mellitus intermediate frame tender insulin use: with fpc use Qualified Code(s): E11.42 - Type 2 diabetes mellitus with diabetic polyneuropathy; Z79.4 - shelter (current) use of insulin (4) Type 2 diabetes mellitus with foot ulcer: CODE(S): E11.621 - Type 2 diabetes mellitus with foot ulcer; L97.509 - Non-pressure chronic ulcer of other part of unspecified foot with unspecified severity QUALIFIERS: Diabetes mellitus fpc insulin use: with fpc use Qualified Code(s): E11.621 - Type 2 diabetes mellitus with foot ulcer; L97.509 - Non-pressure chronic ulcer of other part of unspecified foot with unspecified severity; Z79.4 - shelter (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 DOS 02/10/2024 She is 8 months out of surgery. Cicatrix at incision sites medial foot and anterior leg with no signs of infection. Ulceration dorsal foot continues granulating in well versus her previous visit. She continues healing well at this time. Ulceration predebridement measures 0.4 cm x 0.4 cm x 0.1 cm Ulceration did undergo debridement as noted on clinical panel above. Postdebridement measurements 0.5 cm x 0.5 cm x 0.1 cm. Has completed all 10 applications of EpiFix #10. Collagen powder moistened with hydrogel applied to the ulcerative bed today. Aquacel Ag and DSD applied. She is to change dressing daily. Her area of previous ulceration to the plantar foot with subdermal hemorrhaging continues improvement and swelling continues resolving post recent fall, but she has had new Charcot event with continued breakdown with some resolving ecchymosis to the lateral foot. Her scant hyperkeratosis at the plantar foot was debrided no expressible purulence from site. I previously discussed with her that I feel she did experience continued progression of her new acute Charcot event most likely when she removed her boot to stand barefoot in the shower at the beginning of August. Discussed it appears she continues some breakdown at the lateral foot. Discussed her continued difficulty with Charcot arthropathy. Discussed continuing the CAM boot for immobilization and continuing to stay off of her foot is much as possible over the next 10 weeks until consolidation can continue to occur. Discussed extending the immobilization with limited weight bearing until consolidation can occur. She is understanding of this but this has been difficult. Ulceration demonstrates no change in size vs previous visit likely due to continued Charcot arthropathy changes with edema. Despite this, overall healing well and progressing towards healing of the dorsal foot ulceration. She still does demonstrate some plantar edema at site of Charcot arthropathy degeneration, but this continues improving. There is no expressible purulence. But she does cite recent dental work prior to her starting antibiotic and with active Charcot hematogenous spread remains possible thus she completed course of oral antibiotic, Augmentin 500 mg twice daily x 28 days. Labs were ordered 08/10/24 in addition to updated x-ray of the right foot. Has completed course of oral Doxycycline, Levofloxacin and Augmentin. WBC from 08/10/2024 is 12.7, ESR 36, CRP 89.20. Radiographs from 08/10/2024 do demonstrate increased osseous destruction with joint fragmentation about the Lisfranc joint and sclerosis consistent with Charcot arthropathy however osteomyelitis cannot be ruled out due to the dorsal foot wound and previous dental work. Will continue to monitor closely. She is understanding if she does develop signs and symptoms of infection which were discussed with her today she is to report to the ED for IV antibiotics as she would have failed outpatient oral antibiotic therapy. I did discuss the labs in detail with her today. She does report some improvement with the additional antibiotic. WBC from 08/28/2024 ED visit was 10.0 all other labs were within normal limits MRI had been approved at [place] prior to visit to hospital, however while in ED that evening on 08/28/24 MRI was obtained demonstrating acute Charcot changes and soft tissue swelling. No signs of osteomyelitis. She was approved for EpiFix, completed all 10 applications. Will be permitted to continue protective weightbearing to the right lower extremity in CAM boot. Discussed possible modification to the boot to aid in increased stability to the plantar foot. We have briefly discussed all interventions for limb salvage however despite options we cannot rule out a Charcot event leading to instability. Has completed all HBO dives. HgbA1c during hospital admission was 11.3% on 02/15/2024. Sugars have been well controlled following approval of insulin on new insurance. Current HgbA1c is 6.8% on 08/10/24. The following work up and care recommendations were made: Dressing: Collagen powder moistened with hydrogel, [employer] Ag, dry sterile dressing right foot. Change daily Wash: Soap and water Tissue growth optimization: Collagen powder and hydrogel Offload: Nonweightbearing to the right lower extremity Vascular: DP and PT pulses palpable with adequate capillary fill time. Vascular status not impacting healing at this time. Edema: Edema well-controlled. Will continue with Tubigrip stocking application Infection: No signs of infection. Currently on IV antibiotics via PICC line. Will continue daptomycin and Unasyn per ID Pain: No pain to the ulcerative site secondary to diabetic peripheral polyneuropathy Host factors: DM type II with peripheral polyneuropathy, uncontrolled. Charcot foot right foot At this time prognosis is good and she continues healing well. However her Charcot event is complicating her healing as swelling, despite improvement still persists in addition to unstable foot with continued osseous breakdown. Will continue to monitor for infection as she has had a history of this, but recent MRI excludes this favoring acute Charcot event. I answered all the patient's questions. To return to the wound healing center in 1 week or call sooner if the patient has any questions or concerns.
--- NOTE | 2024-10-20 13:00 | WC ---
PHOTO 10/19/24 RIGHT DORSAL FOOT
== END 2024-10-21 23:59 | disposition home or self-care (01) ==
LOC: WC 08:30
PROVIDERS: PCP Family Medicine; Referring Provider Student in an Organized Health Care Education/Training Program; Visit Provider Student in an Organized Health Care Education/Training Program
DX: E11.621 Type 2 diabetes mellitus with foot ulcer (principal); L97.512 Non-pressure chronic 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; E11.610 Type 2 diabetes mellitus with diabetic neuropathic arthropathy; E11.42 Type 2 diabetes mellitus with diabetic polyneuropathy; Z79.4 Long term (current) use of insulin; M54.9 Dorsalgia, unspecified; Z79.899 Other long term (current) drug therapy
CPT/HCPCS: 11042

== ENCOUNTER 2024-11-16 08:30 | Outpatient (RCR) | payer MEDICAID, SELFPAY ==
[2024-10-22 00:13] VITALS: BP 115/62; BP 143/73; BP 144/64; PULSE 103; PULSE 84; PULSE 92; RESP 16; RESP 18; TEMP 35.5; TEMP 35.7; TEMP 36.2
--- NOTE | 2024-10-26 08:26 | PN.PCM_ITS ---
History of Present Illness Date of Service: 10/26/24 Chief Complaint: Diabetic right foot ulceration History of Wound: Ms. Falk is a 58-year-old currently being seen at the wound center for right foot/ankle ulcer. She has finished hyperbaric oxygen therapy for the diabetic foot ulceration involving her right foot. She has been under the care of Dr. Jason Lewis, Automatic Splicing Machine Operator, relative to the management of her diabetic foot ulceration. Review of the patient's medical record indicates that she has tolerated HBOT well and there has been corresponding significant improvement in ulcer. 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 Blood glucose readings have been largely stable. No chest pain, tightness, blurry vision or concerns reported. Subjective Subjective This is a 58-year-old female who continues to follow with the wound care center for right dorsal foot ulceration. She had previously undergone I&D on 02/10/2024 of the right foot. Continues healing of her dorsal ulceration and is changing dressing daily. Ulceration continues improvement each week and is getting smaller. Last week did experience new Charcot event with some bruising on the lateral foot and some plantar edema. This is improving but foot remains unstable as she heals. States some pain to the foot but this continues to improve. She continues to rest her foot as much as possible with continued immobilizing in CAM boot. She understands her Foot remains unstable due to new event. Does admit to continued back pain with herniated disc which makes ambulation difficult. Reports still in progress for disability. Denies constitutional symptoms. Denies further complaints. Objective Data Objective Data Vital Signs: Vital Signs Temp Pulse Resp BP 96 F L 103 H 16 143/73 H 10/22/24 00:13 10/22/24 00:13 10/22/24 00:13 10/22/24 00:13 Physical Exam Const alert, oriented x3 and no apparent distress General Appearance: cooperative HEENT normocephalic Eyes General Eye: normal appearance of both eyes Neck General: normal visual inspection Lymph Lymphatic: no lymphadenopathy noted and no lymphedema noted Resp normal respiratory effort Cardio regular rate and regular rhythm Extremity no calf tenderness Extremity Narrative: Right lower extremity: Vascular: DP and PT pulses palpable with adequate capillary fill time to the digits. Normal temperature gradient. Hair growth is absent to the digits. Neurologic: Gross sensation intact. Absent protective sensation consistent with diabetic peripheral polyneuropathy Musculoskeletal: No pain to palpation about the ulcerative site secondary to diabetic peripheral polyneuropathy. There is a Charcot foot deformity noted of the right foot. No pain to palpation about the ulcerative site. Dermatologic: Incision site medial foot healed with cicatrix. No signs of infection. Incision site anterior leg with cicatrix proximally and distally. No signs of infection. There is a full thickness ulceration dorsally along the midfoot medial to the incision site with mixed fibrogranular tissue. Ulceration continues improvement with reduction in size and is progressing well. Ulceration site demonstrates no signs of infection. Plantar foot demonstrates scant hyperkeratosis with some plantar edema secondary to continued Charcot degenerative arthropathy progression. New event did occur since last visit with some resolving ecchymosis to lateral foot. No purulence expressible from plantar foot. Skin skin turgor normal Neuro moves all extremities Debridement Note Debridement Note Wound debrided: Right foot Laterality: Right Wound Grade/Stage: Gonzalez stage III Type of Debridement: Excisional debridement Anesthesia Used: 5% Lidocaine Gel Depth: Down to and including healthy tissue and in the subcutaneous layer Percentage of wound debrided: 100 Instrument Used: #15 blade Tissue Removed: Fibrous, devitalized subcutaneous, biofilm, slough Severity: Fat Layer Exposed Amount of bleeding with debridement: Mild Bleeding Controlled with: Compression and gauze Patient tolerated procedure: Patient tolerated procedure well Assessment/Plan Assessment/Plan (1) Non-pressure chronic ulcer of other part of right foot with fat layer exposed: CODE(S): L97.512 - Non-pressure chronic ulcer of other part of right foot with fat layer exposed (2) Charcot's joint of right foot: CODE(S): M14.671 - Charcot's joint, right ankle and foot (3) Type 2 diabetes mellitus with diabetic polyneuropathy: CODE(S): E11.42 - Type 2 diabetes mellitus with diabetic polyneuropathy QUALIFIERS: Diabetes mellitus fci insulin use: with intermodal owner operator truck driver use Qualified Code(s): E11.42 - Type 2 diabetes mellitus with diabetic polyneuropathy; Z79.4 - correction (current) use of insulin (4) Type 2 diabetes mellitus with foot ulcer: CODE(S): E11.621 - Type 2 diabetes mellitus with foot ulcer; L97.509 - Non-pressure chronic ulcer of other part of unspecified foot with unspecified severity QUALIFIERS: 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: with fci use Qualified Code(s): E11.621 - Type 2 diabetes mellitus with foot ulcer; L97.509 - Non-pressure chronic ulcer of other part of unspecified foot with unspecified severity; Z79.4 - termite control technician (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 DOS 02/10/2024 She is 8 months out of surgery. Cicatrix at incision sites medial foot and anterior leg with no signs of infection. Ulceration dorsal foot continues granulating in well versus her previous visit. She continues healing well at this time. Ulceration predebridement measures 0.2 cm x 0.1 cm x 0.1 cm Ulceration did undergo debridement as noted on clinical panel above. Postdebridement measurements 0.3 cm x 0.2 cm x 0.1 cm. Has completed all 10 applications of EpiFix #10. Collagen powder moistened with hydrogel applied to the ulcerative bed today. Aquacel Ag and DSD applied. She is to change dressing daily. Her area of previous ulceration to the plantar foot with subdermal hemorrhaging continues improvement and swelling continues resolving post recent fall, but she has had new Charcot event in late September 2024 with continued breakdown. Ecchymosis has resolved to the lateral foot. Her scant hyperkeratosis at the plantar foot was debrided no expressible purulence from site. I previously discussed with her that I feel she did experience continued progression of her new acute Charcot event most likely when she removed her boot to stand barefoot in the shower at the beginning of August. Discussed it appears she continues some breakdown at the lateral foot. Discussed her continued difficulty with Charcot arthropathy. Discussed continuing the CAM boot for immobilization and continuing to stay off of her foot is much as possible over the next 10 weeks until consolidation can continue to occur. Discussed extending the immobilization with limited weight bearing until consolidation can occur. She is understanding of this but this has been difficult. Ulceration demonstrates slight reduction in size vs previous visit. Her continued Charcot arthropathy changes with edema are improving vs previous visit. Despite her continued progression of Charcot deformity, overall healing well and progressing towards healing of the dorsal foot ulceration. She still does demonstrate some plantar edema at site of Charcot arthropathy degeneration, but this continues improving. There is no expressible purulence. But she did cite recent dental work prior to her starting antibiotic and with active Charcot hematogenous spread remains possible thus she completed course of oral antibiotic, Augmentin 500 mg twice daily x 28 days. Labs were ordered 08/10/24 in addition to updated x-ray of the right foot. Has completed course of oral Doxycycline, Levofloxacin and Augmentin. WBC from 08/10/2024 is 12.7, ESR 36, CRP 89.20. Radiographs from 08/10/2024 do demonstrate increased osseous destruction with joint fragmentation about the Lisfranc joint and sclerosis consistent with Charcot arthropathy however osteomyelitis cannot be ruled out due to the dorsal foot wound and previous dental work. Will continue to monitor closely. She is understanding if she does develop signs and symptoms of infection which were discussed with her today she is to report to the ED for IV antibiotics as she would have failed outpatient oral antibiotic therapy. I did discuss the labs in detail with her today. She does report some improvement with the additional antibiotic. WBC from 08/28/2024 ED visit was 10.0 all other labs were within normal limits MRI had been approved at [facility] prior to visit to hospital, however while in ED that evening on 08/28/24 MRI was obtained demonstrating acute Charcot changes and soft tissue swelling. No signs of osteomyelitis. She was approved for EpiFix, completed all 10 applications. Will be permitted to continue protective weightbearing to the right lower extremity in CAM boot. Discussed possible modification to the boot to aid in increased stability to the plantar foot. We have briefly discussed all interventions for limb salvage however despite options we cannot rule out a Charcot event leading to instability. Has completed all HBO dives. HgbA1c during hospital admission was 11.3% on 02/15/2024. Sugars have been well controlled following approval of insulin on new insurance. Current HgbA1c is 6.8% on 08/10/24. The following work up and care recommendations were made: Dressing: Collagen powder moistened with hydrogel, Aquacel Ag, dry sterile dressing right foot. Change daily Wash: Soap and water Tissue growth optimization: Collagen powder and hydrogel Offload: Nonweightbearing to the right lower extremity Vascular: DP and PT pulses palpable with adequate capillary fill time. Vascular status not impacting healing at this time. Edema: Edema well-controlled. Will continue with Tubigrip stocking application Infection: No signs of infection. Currently on IV antibiotics via PICC line. Will continue daptomycin and Unasyn per ID Pain: No pain to the ulcerative site secondary to diabetic peripheral polyneuropathy Host factors: DM type II with peripheral polyneuropathy, uncontrolled. Charcot foot right foot At this time prognosis is good and she continues healing well. However her Charcot event is complicating her healing as swelling, despite improvement still persists in addition to unstable foot with continued osseous breakdown. Will continue to monitor for infection as she has had a history of this, but recent MRI excludes this favoring acute Charcot event. I answered all the patient's questions. To return to the wound healing center in 1 week or call sooner if the patient has any questions or concerns.
[2024-10-26 08:33] VITALS: BP 126/68; PULSE 89; RESP 16; TEMP 36.7
--- NOTE | 2024-10-27 08:32 | WC ---
PHOTO 10/26/24 RIGHT DORSAL FOOT
[2024-11-02 08:24] VITALS: BP 138/79; PULSE 87; RESP 18; TEMP 36.6
--- NOTE | 2024-11-02 09:31 | PCM.WC.PN ---
History of Present Illness Date of Service: 11/02/24 Chief Complaint: Diabetic right foot ulceration History of Wound: Ms. Falk is a 58-year-old currently being seen at the wound center for right foot/ankle ulcer. She has finished hyperbaric oxygen therapy for the diabetic foot ulceration involving her right foot. She has been under the care of Dr. Jason Lewis, Circuit Clerk, relative to the management of her diabetic foot ulceration. Review of the patient's medical record indicates that she has tolerated HBOT well and there has been corresponding significant improvement in ulcer. 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 Blood glucose readings have been largely stable. No chest pain, tightness, blurry vision or concerns reported. Subjective Subjective This is a 58-year-old female who continues to follow with the wound care center for right dorsal foot ulceration. She had previously undergone I&D on 02/10/2024 of the right foot. Continues healing of her dorsal ulceration and is changing dressing daily. Ulceration continues improvement each week and is getting smaller but still slow to heal due to edema/drainage from Charcot event. Her most recent Charcot event 2 weeks ago is subsiding as her plantar edema improves. Despite improving foot remains unstable as she heals. States some pain to the foot while ambulating in CAM boot. She continues to rest her foot as much as possible with continued immobilizing in CAM boot. She understands her Foot remains unstable due to this recent event. Does admit to continued back pain with herniated disc which makes ambulation difficult. Reports still in progress for disability but appears this is going to be approved due to multiple medical conditions. Denies constitutional symptoms. Denies further complaints. Objective Data Objective Data Vital Signs: Vital Signs Temp Pulse Resp BP O2 Del Method 97.9 F 87 18 138/79 H Room Air 11/02/24 08:24 11/02/24 08:24 11/02/24 08:24 11/02/24 08:24 11/02/24 08:24 Oxygen Delivery Method Room Air Physical Exam Const alert, oriented x3 and no apparent distress General Appearance: cooperative HEENT normocephalic Eyes General Eye: normal appearance of both eyes Neck General: normal visual inspection Lymph Lymphatic: no lymphadenopathy noted and no lymphedema noted Resp normal respiratory effort Cardio regular rate and regular rhythm Extremity no calf tenderness Extremity Narrative: Right lower extremity: Vascular: DP and PT pulses palpable with adequate capillary fill time to the digits. Normal temperature gradient. Hair growth is absent to the digits. Neurologic: Gross sensation intact. Absent protective sensation consistent with diabetic peripheral polyneuropathy Musculoskeletal: No pain to palpation about the ulcerative site secondary to diabetic peripheral polyneuropathy. There is a Charcot foot deformity noted of the right foot. No pain to palpation about the ulcerative site. Dermatologic: Incision site medial foot healed with cicatrix. No signs of infection. Incision site anterior leg with cicatrix proximally and distally. No signs of infection. There is a full thickness ulceration dorsally along the midfoot medial to the incision site with mixed fibrogranular tissue. Ulceration continues improvement with reduction in size and is progressing well. Ulceration site demonstrates no signs of infection. Plantar foot demonstrates scant hyperkeratosis with some plantar edema secondary to continued Charcot degenerative arthropathy progression. New event did occur since last visit with some resolving ecchymosis to lateral foot. No purulence expressible from plantar foot. Skin skin turgor normal Neuro moves all extremities Debridement Note Debridement Note Wound debrided: Right foot Laterality: Right Wound Grade/Stage: Gonzalez stage III Type of Debridement: Excisional debridement Anesthesia Used: 5% Lidocaine Gel Depth: Down to and including healthy tissue and in the subcutaneous layer Percentage of wound debrided: 100 Instrument Used: #15 blade Tissue Removed: Fibrous, devitalized subcutaneous, biofilm, slough Severity: Fat Layer Exposed Amount of bleeding with debridement: Mild Bleeding Controlled with: Compression and gauze Patient tolerated procedure: Patient tolerated procedure well Post-Debridement Measurements and Additional Note: Post-Debridement Measurements/Treatment - Nurse 1 - General Ulcer Assessment Start: 10/26/24 08:26 Freq: Status: Active Protocol: RUKHSANA Activity Type Activity Date Activity User E-sign Co-sign Detail Recorded Client Recorded Date Recorded By Document 10/26/24 08:33 KW [id number] 10/26/24 08:38 KW Document 11/02/24 08:24 KW [id number] 11/02/24 08:27 KW 10/26/24 11/02/24 08:33 08:24 - Today's Visit Information Type of service Follow-up Visit Follow-up Visit (Physician/SEWING MACHINE REPAIRER HELPER (Physician/SEWING MACHINE REPAIRER HELPER ) ) Arrival Mode Ambulatory, Ambulatory,Cane Walker Patient Identification Verified (Name & Yes Yes ) Vital Signs Temperature (97.8 F-99.1 F) 98.0 F 97.9 F Temperature Source Temporal Temporal Pulse Rate (60-100) 89 87 Pulse Location Monitor Monitor Respiratory Rate (12-18) 16 18 Respiratory rate source Monitor Observation Oxygen Delivery Method Room Air Room Air Blood Pressure (90/60-120/80) 126/68 H 138/79 H Blood Pressure Mean (mm Hg) 87 98 Source Monitor Monitor Position Semi-Fowlers Semi-Fowlers Blood Pressure Location Right Arm Right Arm History Since Last Visit- (Skip if this is Patient's initial visit) Have you changed medications since your No No last visit? Any new allergies or adverse reactions No No Had a fall/change in ADL's that may No No increase risk of falls Signs or symptoms of abuse and/or No No neglect since last visit Have you been in the hospital since your No No last visit? Has dressing in place as prescribed Yes Yes Has compression in place as prescribed Yes Yes Has offloadiing in place as prescribed Yes Yes Experienced any changes in pain level or No No management Left Footwear Regular Shoe Regular Shoe Right Footwear Removable Cast Removable Cast Walker/Walking Walker/Walking Boot Boot Pain Scale: 0-10 Numeric Is Patient Pain Free? Yes Yes WC - Nurse 1 - General Ulcer Measurement Start: 10/26/24 08:26 Freq: Status: Active Protocol: Activity Type Activity Date Activity User E-sign Co-sign Detail Recorded Client Recorded Date Recorded By Document 10/26/24 08:33 [id number] 10/26/24 08:38 KW Document 11/02/24 08:24 KW [id number] 11/02/24 08:27 KW 10/26/24 11/02/24 08:33 08:24 Wound Center Nurse 1 #5 RDorsal/Anterior Ankle -Current Size (cm) - Length 0.1 0.3 -Current Size (cm) - Width 0.1 0.2 -Current Size (cm) - Depth 0 0.1 -Total Square Cm 0.01 0.06 -Date of Last Picture (Recall this 10/26/24 11/02/24 field) -Exudate Amt Small -Exudate Type Serosanguineous -Wound Margin Distinct, Outline Attached -Granulation Amt None Present (0 None Present (0 %) %) -Granulation Quality Pale,[place] -Necrosis Amt Large (67-100%) Large (67-100%) -Necrotic Tissue Type Adherent Slough Adherent Slough -Texture (Marie-wound Skin Appearance) Assessed, Assessed, Scarring Scarring -Moisture (Marie-wound Skin Appearance) Assessed, Assessed Maceration -Color (Marie-wound Skin Appearance) Assessed Assessed -Temperature (Marie-wound Skin No Abnormality No Abnormality Appearance) (Pt Warm) (Pt Warm) -Tenderness on Palpation (Marie-wound No No Skin Appearance) -Ulcer Cleansing Soap and Water Soap and Water -Foul Odor after Cleansing No No -Anesthetic Used 5% Lidocaine 5% Lidocaine Gel Gel WC - Nurse 2 - General Ulcer CM Notes Start: 10/26/24 08:26 Freq: Status: Active Protocol: Activity Type Activity Date Activity User E-sign Co-sign Detail Recorded Client Recorded Date Recorded By Document 10/26/24 08:44 [facility] [id number] 10/26/24 08:53 [facility] Document 11/02/24 08:49 [facility] [id number] 11/02/24 08:51 [facility] 10/26/24 11/02/24 08:44 08:49 Wound Center Nurse 2 #5 RDorsal/Anterior Ankle -Time 08:44 08:49 -Correct Patient Yes Yes -Correct Side, Site, Position Yes Yes -Correct Procedure Yes Yes -Procedure Performed Yes Yes -Type of Procedure Debridement Debridement -Clinical Debridement Subcutaneous Subcutaneous -Tissue Removed Subcutaneous Subcutaneous -Post Debridement (cm) - Length 0.3 0.4 -Post Debridement (cm) - Width 0.2 0.4 -Post Debridement (cm) - Depth 0.1 0.1 -Total Square (Post) (cm) 0.06 0.16 -Area of Debridement (cm) - Length 0.3 0.4 -Area of Debridement (cm) - Width 0.2 0.4 -Total Square (Area) (cm) 0.06 0.16 -Tunneling No No -Undermining/Tunneling No No -Circular Undermining No No -Wound/Ulcer Outcome Not Healed Not Healed -Ulcer Cleansing Rinsed/ Rinsed/ Irrigated with Irrigated with Saline Saline -Foul Odor after Cleansing No No -Bioengineered Tissue No -Bleeding Controlled with Pressure Pressure -Treatment Response Procedure Procedure Tolerated Well Tolerated Well -Debridement - Subq, 1st 20sq cm Yes Yes Pain Scale: 0-10 Numeric Is Patient Pain Free? Yes Yes WC - Nurse 3 - General Ulcer D/C NN Start: 10/26/24 08:26 Freq: Status: Active Protocol: Activity Type Activity Date Activity User E-sign Co-sign Detail Recorded Client Recorded Date Recorded By Document 10/26/24 09:03 DL [id number] 10/26/24 09:04 DL Document 11/02/24 09:06 DL [id number] 11/02/24 09:07 DL 10/26/24 11/02/24 09:03 09:06 Wound Care Center Nurse 3 #5 RDorsal/Anterior Ankle -Ulcer Cleansing Rinsed/ Rinsed/ Irrigated with Irrigated with Saline Saline -Foul Odor after Cleansing No No -Other Dressing hydrogel/ Purachol/ purachol/ Aquacel EX/ aquacel Ex hydrogel -Primary Dressing Covered/Secured with Dry Gauze & Dry Gauze & Roll Gauze, Roll Gauze, Secured with Secured with Tape Tape -Other Covering ARMANDO Treatment Response Procedure Procedure Tolerated Well Tolerated Well Pain Scale: 0-10 Numeric Is Patient Pain Free? Yes Yes WC - Visit Discharge Discharge Condition Stable Stable Ambulatory Status Ambulatory, Ambulatory,Cane Walker Transportation Private Auto Private Auto Facility Type Home Health Orders Sent Yes Assessment/Plan Assessment/Plan (1) Non-pressure chronic ulcer of other part of right foot with fat layer exposed: CODE(S): L97.512 - Non-pressure chronic ulcer of other part of right foot with fat layer exposed (2) Charcot's joint of right foot: CODE(S): M14.671 - Charcot's joint, right ankle and foot (3) Type 2 diabetes mellitus with diabetic polyneuropathy: CODE(S): E11.42 - Type 2 diabetes mellitus with diabetic polyneuropathy QUALIFIERS: Diabetes mellitus rodent exterminator insulin use: with rodent exterminator use Qualified Code(s): E11.42 - Type 2 diabetes mellitus with diabetic polyneuropathy; Z79.4 - longterm (current) use of insulin (4) Type 2 diabetes mellitus with foot ulcer: CODE(S): E11.621 - Type 2 diabetes mellitus with foot ulcer; L97.509 - Non-pressure chronic ulcer of other part of unspecified foot with unspecified severity QUALIFIERS: Diabetes mellitus rodent exterminator insulin use: with mcc use Qualified Code(s): E11.621 - Type 2 diabetes mellitus with foot ulcer; L97.509 - Non-pressure chronic ulcer of other part of unspecified foot with unspecified severity; Z79.4 - longterm (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 DOS 02/10/2024 She is 8 months out of surgery. Cicatrix at incision sites medial foot and anterior leg with no signs of infection. Ulceration dorsal foot continues granulating in well versus her previous visit. She continues healing well at this time. Ulceration predebridement measures 0.3 cm x 0.3 cm x 0.1 cm Ulceration did undergo debridement as noted on clinical panel above. Postdebridement measurements 0.4 cm x 0.4 cm x 0.1 cm. Has completed all 10 applications of EpiFix #10. Collagen powder moistened with hydrogel applied to the ulcerative bed today. Aquacel Ag and DSD applied. She is to change dressing daily. Her area of previous ulceration to the plantar foot with subdermal hemorrhaging continues improvement and swelling continues resolving post recent fall, but she has had new Charcot event in late September 2024 with continued breakdown. Her scant hyperkeratosis at the plantar foot was debrided no expressible purulence from site. I previously discussed with her that I feel she did experience continued progression of her new acute Charcot event most likely when she removed her boot to stand barefoot in the shower at the beginning of August. Discussed it appears she continues some breakdown at the lateral foot. Discussed her continued difficulty with Charcot arthropathy. Discussed continuing the CAM boot for immobilization and continuing to stay off of her foot is much as possible over the next 10 weeks until consolidation can continue to occur. Discussed extending the immobilization with limited weight bearing until consolidation can occur. She is understanding of this but this has been difficult. Ulceration demonstrates slight increase in size vs previous visit due to draining secondary to edema from Charcot. Her continued Charcot arthropathy changes with edema are improving but this is slow. Despite her continued progression of Charcot deformity, overall healing well and progressing towards healing of the dorsal foot ulceration. She still does demonstrate some plantar edema at site of Charcot arthropathy degeneration, but this continues improving. There is no expressible purulence. But she did cite recent dental work prior to her starting antibiotic and with active Charcot hematogenous spread remains possible thus she completed course of oral antibiotic, Augmentin 500 mg twice daily x 28 days. Labs were ordered 08/10/24 in addition to updated x-ray of the right foot. Has completed course of oral Doxycycline, Levofloxacin and Augmentin. WBC from 08/10/2024 is 12.7, ESR 36, CRP 89.20. Radiographs from 08/10/2024 do demonstrate increased osseous destruction with joint fragmentation about the Lisfranc joint and sclerosis consistent with Charcot arthropathy however osteomyelitis cannot be ruled out due to the dorsal foot wound and previous dental work. Will continue to monitor closely. She is understanding if she does develop signs and symptoms of infection which were discussed with her today she is to report to the ED for IV antibiotics as she would have failed outpatient oral antibiotic therapy. I did discuss the labs in detail with her today. She does report some improvement with the additional antibiotic. WBC from 08/28/2024 ED visit was 10.0 all other labs were within normal limits MRI had been approved at [place] prior to visit to hospital, however while in ED that evening on 08/28/24 MRI was obtained demonstrating acute Charcot changes and soft tissue swelling. No signs of osteomyelitis. She was approved for EpiFix, completed all 10 applications. Will be permitted to continue protective weightbearing to the right lower extremity in CAM boot. Discussed possible modification to the boot to aid in increased stability to the plantar foot. We have briefly discussed all interventions for limb salvage however despite options we cannot rule out a Charcot event leading to instability. Has completed all HBO dives. HgbA1c during hospital admission was 11.3% on 02/15/2024. Sugars have been well controlled following approval of insulin on new insurance. Current HgbA1c is 6.8% on 08/10/24. The following work up and care recommendations were made: Dressing: Collagen powder moistened with hydrogel, Metabolixel Ag, dry sterile dressing right foot. Change daily Wash: Soap and water Tissue growth optimization: Collagen powder and hydrogel Offload: Nonweightbearing to the right lower extremity Vascular: DP and PT pulses palpable with adequate capillary fill time. Vascular status not impacting healing at this time. Edema: Edema well-controlled. Will continue with Tubigrip stocking application Infection: No signs of infection. Currently on IV antibiotics via PICC line. Will continue daptomycin and Unasyn per ID Pain: No pain to the ulcerative site secondary to diabetic peripheral polyneuropathy Host factors: DM type II with peripheral polyneuropathy, uncontrolled. Charcot foot right foot At this time prognosis is good and she continues healing well. However her Charcot event is complicating her healing as swelling, despite improvement still persists in addition to unstable foot with continued osseous breakdown. Will continue to monitor for infection as she has had a history of this, but recent MRI excludes this favoring acute Charcot event. I answered all the patient's questions. To return to the wound healing center in 1 week or call sooner if the patient has any questions or concerns.
--- NOTE | 2024-11-03 08:28 | WC ---
PHOTO 11/02/24 RIGHT DORSAL FOOT
[2024-11-09 08:42] VITALS: BP 126/72; PULSE 94; RESP 16; TEMP 36.2
--- NOTE | 2024-11-09 09:24 | PCM.WC.PN ---
History of Present Illness Date of Service: 11/09/24 Chief Complaint: Diabetic right foot ulceration History of Wound: Ms. Falk is a 58-year-old currently being seen at the wound center for right foot/ankle ulcer. She has finished hyperbaric oxygen therapy for the diabetic foot ulceration involving her right foot. She has been under the care of Dr. Jason Lewis, General Forecaster, relative to the management of her diabetic foot ulceration. Review of the patient's medical record indicates that she has tolerated HBOT well and there has been corresponding significant improvement in ulcer. 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 Blood glucose readings have been largely stable. No chest pain, tightness, blurry vision or concerns reported. Subjective Subjective This is a 58-year-old female who continues to follow with the wound care center for right dorsal foot ulceration. She had previously undergone I&D on 02/10/2024 of the right foot. Continues healing of her dorsal ulceration and is changing dressing daily. Ulceration continues improvement each week and is getting smaller but still slow to heal due to edema/drainage from continued Charcot events. Her most recent Charcot event was this past Wednesday11/06/24 when she reported that her dog got out through the gate and she had to "run her down" while wearing a house slipper. States some pain to the foot while ambulating in CAM boot since this recent event with additional edema to the plantar foot. She continues to rest her foot as much as possible with continued immobilizing in CAM boot. She understands her Foot remains unstable due to this recent event. Does admit to continued back pain with herniated disc which makes ambulation difficult. Reports still in progress for disability but appears this is going to be approved due to multiple medical conditions. Denies constitutional symptoms. Denies further complaints. Objective Data Objective Data Vital Signs: Vital Signs Temp Pulse Resp BP O2 Del Method 97.1 F L 94 16 126/72 H Room Air 11/09/24 08:42 11/09/24 08:42 11/09/24 08:42 11/09/24 08:42 11/02/24 08:24 Oxygen Delivery Method Room Air Physical Exam Const alert, oriented x3 and no apparent distress General Appearance: cooperative HEENT normocephalic Eyes General Eye: normal appearance of both eyes Neck General: normal visual inspection Lymph Lymphatic: no lymphadenopathy noted and no lymphedema noted Resp normal respiratory effort Cardio regular rate and regular rhythm Extremity no calf tenderness Extremity Narrative: Right lower extremity: Vascular: DP and PT pulses palpable with adequate capillary fill time to the digits. Normal temperature gradient. Hair growth is absent to the digits. Neurologic: Gross sensation intact. Absent protective sensation consistent with diabetic peripheral polyneuropathy Musculoskeletal: No pain to palpation about the ulcerative site secondary to diabetic peripheral polyneuropathy. There is a Charcot foot deformity noted of the right foot. No pain to palpation about the ulcerative site. There is pain to palpation along the 5th and 4th metatarsals with plantar edema of the foot secondary to recent Charcot event with likely fracture of the metatarsal. Dermatologic: Incision site medial foot healed with cicatrix. No signs of infection. Incision site anterior leg with cicatrix proximally and distally. No signs of infection. There is a full thickness ulceration dorsally along the midfoot medial to the incision site with mixed fibrogranular tissue. Ulceration continues improvement with reduction in size and is progressing well. Ulceration site demonstrates no signs of infection. Plantar foot demonstrates scant hyperkeratosis with plantar edema secondary to continued Charcot degenerative arthropathy progression. New event did occur since last visit with pain and swelling to the plantar foot and lateral foot. No purulence expressible from plantar foot. Skin skin turgor normal Neuro moves all extremities Debridement Note Debridement Note Wound debrided: Right foot Laterality: Right Wound Grade/Stage: Gonzalez stage III Type of Debridement: Excisional debridement Anesthesia Used: 5% Lidocaine Gel Depth: Down to and including healthy tissue and in the subcutaneous layer Percentage of wound debrided: 100 Instrument Used: #15 blade Tissue Removed: Fibrous, devitalized subcutaneous, biofilm, slough Severity: Fat Layer Exposed Amount of bleeding with debridement: Mild Bleeding Controlled with: Compression and gauze Patient tolerated procedure: Patient tolerated procedure well Post-Debridement Measurements and Additional Note: Post-Debridement Measurements/Treatment WC - Nurse 1 - General Ulcer Assessment Start: 10/26/24 08:26 Freq: Status: Active Protocol: RUKHSANA Activity Type Activity Date Activity User E-sign Co-sign Detail Recorded Client Recorded Date Recorded By Document 10/26/24 08:33 KW [id number] 10/26/24 08:38 KW Document 11/02/24 08:24 KW [id number] 11/02/24 08:27 KW Document 11/09/24 08:42 DL [id number] 11/09/24 08:47 DL 10/26/24 11/02/24 11/09/24 08:33 08:24 08:42 - Today's Visit Information Type of service Follow-up Visit Follow-up Visit Follow-up Visit (Physician/ANIMAL RIDE ATTENDANT (Physician/ANIMAL RIDE ATTENDANT (Physician/ANIMAL RIDE ATTENDANT ) ) ) Arrival Mode Ambulatory, Ambulatory,Cane Ambulatory Walker Patient Identification Verified (Name & Yes Yes Yes ) Patient Requires Transmission-Based No Precautions Vital Signs Temperature (97.8 F-99.1 F) 98.0 F 97.9 F 97.1 F L Temperature Source Temporal Temporal Temporal Pulse Rate (60-100) 89 87 94 Pulse Location Monitor Monitor Monitor Respiratory Rate (12-18) 16 18 16 Respiratory rate source Monitor Observation Observation Oxygen Delivery Method Room Air Room Air Blood Pressure (90/60-120/80) 126/68 H 138/79 H 126/72 H Blood Pressure Mean (mm Hg) 87 98 90 Source Monitor Monitor Monitor Position Semi-Fowlers Semi-Fowlers Blood Pressure Location Right Arm Right Arm History Since Last Visit- (Skip if this is Patient's initial visit) Have you changed medications since your No No No last visit? Any new allergies or adverse reactions No No No Had a fall/change in ADL's that may No No No increase risk of falls Signs or symptoms of abuse and/or No No No neglect since last visit Have you been in the hospital since your No No No last visit? Has dressing in place as prescribed Yes Yes Yes Has compression in place as prescribed Yes Yes Yes Has offloadiing in place as prescribed Yes Yes Yes Experienced any changes in pain level or No No No management Left Footwear Regular Shoe Regular Shoe Right Footwear Removable Cast Removable Cast Walker/Walking Walker/Walking Boot Boot Pain Scale: 0-10 Numeric Is Patient Pain Free? Yes Yes Yes - Nurse 1 - General Ulcer Measurement Start: 10/26/24 08:26 Freq: Status: Active Protocol: Activity Type Activity Date Activity User E-sign Co-sign Detail Recorded Client Recorded Date Recorded By Document 10/26/24 08:33 KW [id number] 10/26/24 08:38 KW Document 11/02/24 08:24 KW [id number] 11/02/24 08:27 KW Document 11/09/24 08:42 DL [id number] 11/09/24 08:47 DL 10/26/24 11/02/24 11/09/24 08:33 08:24 08:42 Wound Center Nurse 1 #5 RDorsal/Anterior Ankle -Current Size (cm) - Length 0.1 0.3 0.1 -Current Size (cm) - Width 0.1 0.2 0.1 -Current Size (cm) - Depth 0 0.1 0.1 -Total Square Cm 0.01 0.06 0.01 -Date of Last Picture (Recall this 10/26/24 11/02/24 field) -Photo Taken Yes -Exudate Amt Small None Present -Exudate Type Serosanguineous -Wound Margin Distinct, Thickened Outline Attached -Granulation Amt None Present (0 None Present (0 %) %) -Granulation Quality Pale,[place] Pale -Necrosis Amt Large (67-100%) Large (67-100%) Small (1-33%) -Necrotic Tissue Type Adherent Slough Adherent Slough Adherent Slough -Structure Exposed N/A -Texture (Marie-wound Skin Appearance) Assessed, Assessed, Scarring Scarring Scarring -Moisture (Marie-wound Skin Appearance) Assessed, Assessed No Abnormality Maceration -Color (Marie-wound Skin Appearance) Assessed Assessed No Abnormality -Temperature (Marie-wound Skin No Abnormality No Abnormality No Abnormality Appearance) (Pt Warm) (Pt Warm) (Pt Warm) -Tenderness on Palpation (Marie-wound No No No Skin Appearance) -Ulcer Cleansing Soap and Water Soap and Water Soap and Water -Foul Odor after Cleansing No No No -Anesthetic Used 5% Lidocaine 5% Lidocaine 5% Lidocaine Gel Gel Gel WC - Nurse 2 - General Ulcer CM Notes Start: 10/26/24 08:26 Freq: Status: Active Protocol: Activity Type Activity Date Activity User E-sign Co-sign Detail Recorded Client Recorded Date Recorded By Document 10/26/24 08:44 [facility] [id number] 10/26/24 08:53 BM Document 11/02/24 08:49 BM [id number] 11/02/24 08:51 BM Document 11/09/24 08:54 BM [id number] 11/09/24 09:01 BM 10/26/24 11/02/2411/09/25 08:44 08:49 08:54 Wound Center Nurse 2 #5 RDorsal/Anterior Ankle -Time 08:44 08:49 08:54 -Correct Patient Yes Yes Yes -Correct Side, Site, Position Yes Yes Yes -Correct Procedure Yes Yes Yes -Procedure Performed Yes Yes Yes -Type of Procedure Debridement Debridement Debridement -Clinical Debridement Subcutaneous Subcutaneous Subcutaneous -Tissue Removed Subcutaneous Subcutaneous Subcutaneous -Post Debridement (cm) - Length 0.3 0.4 0.1 -Post Debridement (cm) - Width 0.2 0.4 0.1 -Post Debridement (cm) - Depth 0.1 0.1 0.1 -Total Square (Post) (cm) 0.06 0.16 0.01 -Area of Debridement (cm) - Length 0.3 0.4 0.1 -Area of Debridement (cm) - Width 0.2 0.4 0.1 -Total Square (Area) (cm) 0.06 0.16 0.01 -Tunneling No No No -Undermining/Tunneling No No No -Circular Undermining No No No -Wound/Ulcer Outcome Not Healed Not Healed Not Healed -Ulcer Cleansing Rinsed/ Rinsed/ Rinsed/ Irrigated with Irrigated with Irrigated with Saline Saline Saline -Foul Odor after Cleansing No No No -Bioengineered Tissue No -Bleeding Controlled with Pressure Pressure Pressure -Treatment Response Procedure Procedure Procedure Tolerated Well Tolerated Well Tolerated Well -Debridement - Subq, 1st 20sq cm Yes Yes Yes Pain Scale: 0-10 Numeric Is Patient Pain Free? Yes Yes Yes WC - Nurse 3 - General Ulcer D/C NN Start: 10/26/24 08:26 Freq: Status: Active Protocol: Activity Type Activity Date Activity User E-sign Co-sign Detail Recorded Client Recorded Date Recorded By Document 10/26/24 09:03 DL [id number] 10/26/24 09:04 DL Document 11/02/24 09:06 DL [id number] 11/02/24 09:07 DL Document 11/09/24 09:10 KW [id number] 11/09/24 09:11 KW 10/26/24 11/02/24 11/09/24 09:03 09:06 09:10 Wound Care Center Nurse 3 #5 RDorsal/Anterior Ankle -Ulcer Cleansing Rinsed/ Rinsed/ Irrigated with Irrigated with Saline Saline -Foul Odor after Cleansing No No -Other Dressing hydrogel/ Purachol/ pt own purachol purachol/ Aquacel EX/ powder with aquacel Ex hydrogel hydrogel top with aquacel extra -Primary Dressing Covered/Secured with Dry Gauze & Dry Gauze & Dry Gauze, Roll Gauze, Roll Gauze, Secured with Secured with Secured with Tape Tape Tape -Other Covering ARMANDO Treatment Response Procedure Procedure Tolerated Well Tolerated Well Pain Scale: 0-10 Numeric Is Patient Pain Free? Yes Yes Yes WC - Visit Discharge Discharge Condition Stable Stable Stable Ambulatory Status Ambulatory, Ambulatory,Cane Ambulatory,Cane Walker Transportation Private Auto Private Auto Private Auto Medication Reconcilliation completed & No provided to patient/care provider Clinical Summary of Care Provided Yes Facility Type Home Health Orders Sent Yes Assessment/Plan Assessment/Plan (1) Non-pressure chronic ulcer of other part of right foot with fat layer exposed: CODE(S): L97.512 - Non-pressure chronic ulcer of other part of right foot with fat layer exposed (2) Charcot's joint of right foot: CODE(S): M14.671 - Charcot's joint, right ankle and foot (3) Type 2 diabetes mellitus with diabetic polyneuropathy: CODE(S): E11.42 - Type 2 diabetes mellitus with diabetic polyneuropathy QUALIFIERS: Diabetes mellitus pin machine operator insulin use: with pin machine operator use Qualified Code(s): E11.42 - Type 2 diabetes mellitus with diabetic polyneuropathy; Z79.4 - dry mill operator (current) use of insulin (4) Type 2 diabetes mellitus with foot ulcer: CODE(S): E11.621 - Type 2 diabetes mellitus with foot ulcer; L97.509 - Non-pressure chronic ulcer of other part of unspecified foot with unspecified severity QUALIFIERS: Diabetes mellitus pin machine operator insulin use: with pin machine operator use Qualified Code(s): E11.621 - Type 2 diabetes mellitus with foot ulcer; L97.509 - Non-pressure chronic ulcer of other part of unspecified foot with unspecified severity; Z79.4 - long-term (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 DOS 02/10/2024 She is 9 months out of surgery. Cicatrix at incision sites medial foot and anterior leg with no signs of infection. Ulceration dorsal foot continues granulating in well versus her previous visit. She continues healing well at this time. Ulceration predebridement measures 0.1 cm x 0.1 cm x 0.1 cm Ulceration did undergo debridement as noted on clinical panel above. Postdebridement measurements 0.1 cm x 0.1 cm x 0.1 cm. Has completed all 10 applications of EpiFix #10. Collagen powder moistened with hydrogel applied to the ulcerative bed today. Aquacel Ag and DSD applied. She is to change dressing daily. Her area of previous ulceration to the plantar foot with subdermal hemorrhaging continues improvement, however swelling continues due to chasing her escape dog while wearing a house slipper creating new Charcot event on 11/06/2024.she continues cyclic events with continued breakdown of the midfoot. Her scant hyperkeratosis at the plantar foot was debrided no expressible purulence from site. I previously discussed with her that I feel she did experience continued progression of her new acute Charcot event most likely when she removed her boot to stand barefoot in the shower at the beginning of August. Discussed it appears she continues some breakdown at the lateral foot with another event in late September and a most recent one on 11/06/2024. Discussed her continued difficulty with Charcot arthropathy. Discussed continuing the CAM boot for immobilization and continuing to stay off of her foot is much as possible over the next 10-12 weeks until consolidation can continue to occur. Discussed extending the immobilization with limited weight bearing until consolidation can occur. She is understanding of this but this has been difficult. Ulceration demonstrates decreased in size vs previous visit. Her continued Charcot arthropathy changes with edema have been improving but with repeated events healing will be slow. Despite her continued progression of Charcot deformity, overall healing well and progressing towards healing of the dorsal foot ulceration. She still does demonstrate some plantar edema at site of Charcot arthropathy degeneration, but this continues improving. There is no expressible purulence. But she did cite recent dental work prior to her starting antibiotic and with active Charcot hematogenous spread remains possible thus she completed course of oral antibiotic, Augmentin 500 mg twice daily x 28 days. Labs were ordered 08/10/24 in addition to updated x-ray of the right foot. Has completed course of oral Doxycycline, Levofloxacin and Augmentin. WBC from 08/10/2024 is 12.7, ESR 36, CRP 89.20. Radiographs from 08/10/2024 do demonstrate increased osseous destruction with joint fragmentation about the Lisfranc joint and sclerosis consistent with Charcot arthropathy however osteomyelitis cannot be ruled out due to the dorsal foot wound and previous dental work. Will continue to monitor closely. She is understanding if she does develop signs and symptoms of infection which were discussed with her today she is to report to the ED for IV antibiotics as she would have failed outpatient oral antibiotic therapy. I did discuss the labs in detail with her today. She does report some improvement with the additional antibiotic. WBC from 08/28/2024 ED visit was 10.0 all other labs were within normal limits MRI had been approved at [place] prior to visit to hospital, however while in ED that evening on 08/28/24 MRI was obtained demonstrating acute Charcot changes and soft tissue swelling. No signs of osteomyelitis. She was approved for EpiFix, completed all 10 applications. Will be permitted to continue protective weightbearing to the right lower extremity in CAM boot with stiffer Plastizote insole. Discussed modification to the boot should aid in increased stability to the plantar foot. We have briefly discussed all interventions for limb salvage however despite options we cannot rule out a Charcot event leading to instability. We have also discussed likelihood of lower extremity amputation secondary to continued Charcot events. Has completed all HBO dives. HgbA1c during hospital admission was 11.3% on 02/15/2024. Sugars have been well controlled following approval of insulin on new insurance. Current HgbA1c is 6.8% on 08/10/24. The following work up and care recommendations were made: Dressing: Collagen powder moistened with hydrogel, Mind Candy Ag, dry sterile dressing right foot. Change daily Wash: Soap and water Tissue growth optimization: Collagen powder and hydrogel Offload: Nonweightbearing to the right lower extremity Vascular: DP and PT pulses palpable with adequate capillary fill time. Vascular status not impacting healing at this time. Edema: Edema well-controlled. Will continue with Tubigrip stocking application Infection: No signs of infection. Currently on IV antibiotics via PICC line. Will continue daptomycin and Unasyn per ID Pain: No pain to the ulcerative site secondary to diabetic peripheral polyneuropathy Host factors: DM type II with peripheral polyneuropathy, uncontrolled. Charcot foot right foot At this time prognosis is good and she continues healing well. However her continued Charcot events is complicating her healing as swelling still persists in addition to unstable foot with continued osseous breakdown. Will continue to monitor for infection as she has had a history of this, but recent MRI excludes this favoring acute Charcot event. I answered all the patient's questions. To return to the wound healing center in 1 week or call sooner if the patient has any questions or concerns.
[2024-11-16 08:22] VITALS: BP 133/72; PULSE 92; RESP 18; TEMP 35.8
--- NOTE | 2024-11-16 09:43 | PCM.WC.PN ---
History of Present Illness Date of Service: 11/16/24 Chief Complaint: Diabetic right foot ulceration History of Wound: Ms. Falk is a 58-year-old currently being seen at the wound center for right foot/ankle ulcer. She has finished hyperbaric oxygen therapy for the diabetic foot ulceration involving her right foot. She has been under the care of Dr. Jason Lewis, Security Agent, relative to the management of her diabetic foot ulceration. Review of the patient's medical record indicates that she has tolerated HBOT well and there has been corresponding significant improvement in ulcer. 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 Blood glucose readings have been largely stable. No chest pain, tightness, blurry vision or concerns reported. Subjective Subjective This is a 58-year-old female who continues to follow with the wound care center for right dorsal foot ulceration. She had previously undergone I&D on 02/10/2024 of the right foot. Continues healing of her dorsal ulceration and is changing dressing daily. Ulceration continues improvement each week and is getting smaller but still slow to heal due to edema/drainage from continued Charcot events. States pain to the foot improving while ambulating in CAM boot since since modification to the boot was made. She continues to rest her foot as much as possible with continued immobilizing in CAM boot. She understands her Foot remains unstable due to this recent event. Does admit to continued back pain with herniated disc which makes ambulation difficult. Reports still in progress for disability but appears this is going to be approved due to multiple medical conditions. Denies constitutional symptoms. Denies further complaints. Objective Data Objective Data Vital Signs: Vital Signs Temp Pulse Resp BP O2 Del Method 96.4 F L 92 18 133/72 H Room Air 11/16/24 08:22 11/16/24 08:22 11/16/24 08:22 11/16/24 08:22 11/16/24 08:22 Oxygen Delivery Method Room Air Physical Exam Const alert, oriented x3 and no apparent distress General Appearance: cooperative HEENT normocephalic Eyes General Eye: normal appearance of both eyes Neck General: normal visual inspection Lymph Lymphatic: no lymphadenopathy noted and no lymphedema noted Resp normal respiratory effort Cardio regular rate and regular rhythm Extremity no calf tenderness Extremity Narrative: Right lower extremity: Vascular: DP and PT pulses palpable with adequate capillary fill time to the digits. Normal temperature gradient. Hair growth is absent to the digits. Neurologic: Gross sensation intact. Absent protective sensation consistent with diabetic peripheral polyneuropathy Musculoskeletal: No pain to palpation about the ulcerative site secondary to diabetic peripheral polyneuropathy. There is a Charcot foot deformity noted of the right foot. No pain to palpation about the ulcerative site. There is pain to palpation along the 5th and 4th metatarsals with plantar edema of the foot secondary to recent Charcot event with likely fracture of the metatarsal. Dermatologic: Incision site medial foot healed with cicatrix. No signs of infection. Incision site anterior leg with cicatrix proximally and distally. No signs of infection. There is a full thickness ulceration dorsally along the midfoot medial to the incision site with mixed fibrogranular tissue. Ulceration continues improvement with reduction in size and is progressing well. Ulceration site demonstrates no signs of infection. Plantar foot demonstrates scant hyperkeratosis with plantar edema secondary to continued Charcot degenerative arthropathy progression. New event did occur since last visit with pain and swelling to the plantar foot and lateral foot. No purulence expressible from plantar foot. Skin skin turgor normal Neuro moves all extremities Debridement Note Debridement Note Wound debrided: Right dorsal foot Laterality: Right Wound Grade/Stage: Gonzalez stage III Type of Debridement: Excisional debridement Anesthesia Used: 5% Lidocaine Gel Depth: Down to and including healthy tissue and in the subcutaneous layer Percentage of wound debrided: 100 Instrument Used: #15 blade Tissue Removed: Fibrous, devitalized subcutaneous, biofilm, slough Severity: Fat Layer Exposed Amount of bleeding with debridement: Mild Bleeding Controlled with: Compression and gauze Patient tolerated procedure: Patient tolerated procedure well Post-Debridement Measurements and Additional Note: Post-Debridement Measurements/Treatment - Nurse 1 - General Ulcer Assessment Start: 10/26/24 08:26 Freq: Status: Active Protocol: RUKHSANA Activity Type Activity Date Activity User E-sign Co-sign Detail Recorded Client Recorded Date Recorded By Document 10/26/24 08:33 KW [id number] 10/26/24 08:38 KW Document 11/02/24 08:24 KW [id number] 11/02/24 08:27 KW Document 11/09/24 08:42 DL [id number] 11/09/24 08:47 DL Document 11/16/24 08:22 KW [id number] 11/16/24 08:30 10/26/24 11/02/24 11/09/24 08:33 08:24 08:42 - Today's Visit Information Type of service Follow-up Visit Follow-up Visit Follow-up Visit (Physician/MIRROR POLISHER (Physician/MIRROR POLISHER (Physician/MIRROR POLISHER ) ) ) Arrival Mode Ambulatory, Ambulatory,Cane Ambulatory Walker Arrival Mode (Other) Patient Identification Verified (Name & Yes Yes Yes ) Patient Requires Transmission-Based No Precautions Vital Signs Temperature (97.8 F-99.1 F) 98.0 F 97.9 F 97.1 F L Temperature Source Temporal Temporal Temporal Pulse Rate (60-100) 89 87 94 Pulse Location Monitor Monitor Monitor Respiratory Rate (12-18) 16 18 16 Respiratory rate source Monitor Observation Observation Oxygen Delivery Method Room Air Room Air Blood Pressure (90/60-120/80) 126/68 H 138/79 H 126/72 H Blood Pressure Mean (mm Hg) 87 98 90 Source Monitor Monitor Monitor Position Semi-Fowlers Semi-Fowlers Blood Pressure Location Right Arm Right Arm History Since Last Visit- (Skip if this is Patient's initial visit) Have you changed medications since your No No No last visit? Any new allergies or adverse reactions No No No Had a fall/change in ADL's that may No No No increase risk of falls Signs or symptoms of abuse and/or No No No neglect since last visit Have you been in the hospital since your No No No last visit? Has dressing in place as prescribed Yes Yes Yes Has compression in place as prescribed Yes Yes Yes Has offloadiing in place as prescribed Yes Yes Yes Experienced any changes in pain level or No No No management Left Footwear Regular Shoe Regular Shoe Right Footwear Removable Cast Removable Cast Walker/Walking Walker/Walking Boot Boot Pain Scale: 0-10 Numeric Is Patient Pain Free? Yes Yes Yes 11/16/24 08:22 - Today's Visit Information Type of service Follow-up Visit (Physician/MIRROR POLISHER ) Arrival Mode Ambulatory, Other Arrival Mode (Other) walking stick Patient Identification Verified (Name & Yes ) Patient Requires Transmission-Based Precautions Vital Signs Temperature (97.8 F-99.1 F) 96.4 F L Temperature Source Temporal Pulse Rate (60-100) 92 Pulse Location Monitor Respiratory Rate (12-18) 18 Respiratory rate source Observation Oxygen Delivery Method Room Air Blood Pressure (90/60-120/80) 133/72 H Blood Pressure Mean (mm Hg) 92 Source Monitor Position Semi-Fowlers Blood Pressure Location Left Arm History Since Last Visit- (Skip if this is Patient's initial visit) Have you changed medications since your No last visit? Any new allergies or adverse reactions No Had a fall/change in ADL's that may No increase risk of falls Signs or symptoms of abuse and/or No neglect since last visit Have you been in the hospital since your No last visit? Has dressing in place as prescribed Yes Has compression in place as prescribed Yes Has offloadiing in place as prescribed Yes Experienced any changes in pain level or No management Left Footwear Regular Shoe Right Footwear Removable Cast Walker/Walking Boot Pain Scale: 0-10 Numeric Is Patient Pain Free? Yes WC - Nurse 1 - General Ulcer Measurement Start: 10/26/24 08:26 Freq: Status: Active Protocol: Activity Type Activity Date Activity User E-sign Co-sign Detail Recorded Client Recorded Date Recorded By Document 10/26/24 08:33 KW [id number] 10/26/24 08:38 KW Document 11/02/24 08:24 KW [id number] 11/02/24 08:27 KW Document 11/09/24 08:42 DL [id number] 11/09/24 08:47 DL Document 11/16/24 08:22 KW [id number] 11/16/24 08:30 KW 10/26/24 11/02/24 11/09/24 08:33 08:24 08:42 Wound Center Nurse 1 #5 RDorsal/Anterior Ankle -Current Size (cm) - Length 0.1 0.3 0.1 -Current Size (cm) - Width 0.1 0.2 0.1 -Current Size (cm) - Depth 0 0.1 0.1 -Total Square Cm 0.01 0.06 0.01 -Date of Last Picture (Recall this 10/26/24 11/02/24 field) -Photo Taken Yes -Exudate Amt Small None Present -Exudate Type Serosanguineous -Wound Margin Distinct, Thickened Outline Attached -Granulation Amt None Present (0 None Present (0 %) %) -Granulation Quality Pale,[place] Pale -Necrosis Amt Large (67-100%) Large (67-100%) Small (1-33%) -Necrotic Tissue Type Adherent Slough Adherent Slough Adherent Slough -Structure Exposed N/A -Texture (Marie-wound Skin Appearance) Assessed, Assessed, Scarring Scarring Scarring -Moisture (Marie-wound Skin Appearance) Assessed, Assessed No Abnormality Maceration -Color (Marie-wound Skin Appearance) Assessed Assessed No Abnormality -Temperature (Marie-wound Skin No Abnormality No Abnormality No Abnormality Appearance) (Pt Warm) (Pt Warm) (Pt Warm) -Tenderness on Palpation (Marie-wound No No No Skin Appearance) -Ulcer Cleansing Soap and Water Soap and Water Soap and Water -Foul Odor after Cleansing No No No -Anesthetic Used 5% Lidocaine 5% Lidocaine 5% Lidocaine Gel Gel Gel 11/16/24 08:22 Wound Center Nurse 1 #5 RDorsal/Anterior Ankle -Current Size (cm) - Length 0.5 -Current Size (cm) - Width 0.5 -Current Size (cm) - Depth 0.1 -Total Square Cm 0.25 -Date of Last Picture (Recall this 11/16/24 field) -Photo Taken -Exudate Amt Small -Exudate Type Serosanguineous -Wound Margin Distinct, Outline Attached -Granulation Amt Small (1-33%) -Granulation Quality Pale,[place] -Necrosis Amt Large (67-100%) -Necrotic Tissue Type Adherent Slough -Structure Exposed -Texture (Marie-wound Skin Appearance) Assessed -Moisture (Marie-wound Skin Appearance) Assessed -Color (Marie-wound Skin Appearance) Assessed -Temperature (Marie-wound Skin No Abnormality Appearance) (Pt Warm) -Tenderness on Palpation (Marie-wound No Skin Appearance) -Ulcer Cleansing Soap and Water -Foul Odor after Cleansing No -Anesthetic Used 5% Lidocaine Gel WC - Nurse 2 - General Ulcer CM Notes Start: 10/26/24 08:26 Freq: Status: Active Protocol: Activity Type Activity Date Activity User E-sign Co-sign Detail Recorded Client Recorded Date Recorded By Document 10/26/24 08:44 [facility] [id number] 10/26/24 08:53 BM Document 11/02/24 08:49 BM [id number] 11/02/24 08:51 BMF Document 11/09/24 08:54 BM [id number] 11/09/24 09:01 BMF Document 11/16/24 08:53 [facility] [id number] 11/16/24 09:00 BMF 10/26/24 11/02/24 11/09/24 08:44 08:49 08:54 Wound Center Nurse 2 #8- R PLANTAR -Time -Correct Patient -Correct Side, Site, Position -Correct Procedure -Procedure Performed -Type of Procedure -Clinical Debridement -Tissue Removed -Post Debridement (cm) - Length -Post Debridement (cm) - Width -Post Debridement (cm) - Depth -Total Square (Post) (cm) -Area of Debridement (cm) - Length -Area of Debridement (cm) - Width -Total Square (Area) (cm) -Tunneling -Undermining/Tunneling -Circular Undermining -Wound/Ulcer Outcome -Ulcer Cleansing -Foul Odor after Cleansing -Bioengineered Tissue -Bleeding Controlled with -Treatment Response -Debridement - Subq, 1st 20sq cm #5 RDorsal/Anterior Ankle -Time 08:44 08:49 08:54 -Correct Patient Yes Yes Yes -Correct Side, Site, Position Yes Yes Yes -Correct Procedure Yes Yes Yes -Procedure Performed Yes Yes Yes -Type of Procedure Debridement Debridement Debridement -Clinical Debridement Subcutaneous Subcutaneous Subcutaneous -Tissue Removed Subcutaneous Subcutaneous Subcutaneous -Post Debridement (cm) - Length 0.3 0.4 0.1 -Post Debridement (cm) - Width 0.2 0.4 0.1 -Post Debridement (cm) - Depth 0.1 0.1 0.1 -Total Square (Post) (cm) 0.06 0.16 0.01 -Area of Debridement (cm) - Length 0.3 0.4 0.1 -Area of Debridement (cm) - Width 0.2 0.4 0.1 -Total Square (Area) (cm) 0.06 0.16 0.01 -Tunneling No No No -Undermining/Tunneling No No No -Circular Undermining No No No -Wound/Ulcer Outcome Not Healed Not Healed Not Healed -Ulcer Cleansing Rinsed/ Rinsed/ Rinsed/ Irrigated with Irrigated with Irrigated with Saline Saline Saline -Foul Odor after Cleansing No No No -Bioengineered Tissue No -Bleeding Controlled with Pressure Pressure Pressure -Treatment Response Procedure Procedure Procedure Tolerated Well Tolerated Well Tolerated Well -Debridement - Subq, 1st 20sq cm Yes Yes Yes Pain Scale: 0-10 Numeric Is Patient Pain Free? Yes Yes Yes 11/16/24 08:53 Wound Center Nurse 2 #8- R PLANTAR -Time 08:54 -Correct Patient Yes -Correct Side, Site, Position Yes -Correct Procedure Yes -Procedure Performed Yes -Type of Procedure Debridement -Clinical Debridement Subcutaneous -Tissue Removed Subcutaneous -Post Debridement (cm) - Length 0.1 -Post Debridement (cm) - Width 0.1 -Post Debridement (cm) - Depth 0.1 -Total Square (Post) (cm) 0.01 -Area of Debridement (cm) - Length 0.1 -Area of Debridement (cm) - Width 0.1 -Total Square (Area) (cm) 0.01 -Tunneling No -Undermining/Tunneling No -Circular Undermining No -Wound/Ulcer Outcome Not Healed -Ulcer Cleansing Rinsed/ Irrigated with Saline -Foul Odor after Cleansing No -Bioengineered Tissue No -Bleeding Controlled with Pressure -Treatment Response Procedure Tolerated Well -Debridement - Subq, 1st 20sq cm No #5 RDorsal/Anterior Ankle -Time 08:54 -Correct Patient Yes -Correct Side, Site, Position Yes -Correct Procedure Yes -Procedure Performed Yes -Type of Procedure Debridement -Clinical Debridement Subcutaneous -Tissue Removed Subcutaneous -Post Debridement (cm) - Length 0.1 -Post Debridement (cm) - Width 0.1 -Post Debridement (cm) - Depth 0.1 -Total Square (Post) (cm) 0.01 -Area of Debridement (cm) - Length 0.1 -Area of Debridement (cm) - Width 0.1 -Total Square (Area) (cm) 0.01 -Tunneling No -Undermining/Tunneling No -Circular Undermining No -Wound/Ulcer Outcome Not Healed -Ulcer Cleansing Rinsed/ Irrigated with Saline -Foul Odor after Cleansing No -Bioengineered Tissue No -Bleeding Controlled with Pressure -Treatment Response Procedure Tolerated Well -Debridement - Subq, 1st 20sq cm Yes Pain Scale: 0-10 Numeric Is Patient Pain Free? Yes WC - Nurse 3 - General Ulcer D/C NN Start: 10/26/24 08:26 Freq: Status: Active Protocol: Activity Type Activity Date Activity User E-sign Co-sign Detail Recorded Client Recorded Date Recorded By Document 10/26/24 09:03 DL [id number] 10/26/24 09:04 DL Document 11/02/24 09:06 DL [id number] 11/02/24 09:07 DL Document 11/09/24 09:10 KW [id number] 11/09/24 09:11 KW Document 11/16/24 09:23 DL [id number] 11/16/24 09:26 DL 10/26/24 11/02/24 11/09/24 09:03 09:06 09:10 Wound Care Center Nurse 3 #8- R PLANTAR -Ulcer Cleansing -Foul Odor after Cleansing -Other Dressing -Primary Dressing Covered/Secured with #5 RDorsal/Anterior Ankle -Ulcer Cleansing Rinsed/ Rinsed/ Irrigated with Irrigated with Saline Saline -Foul Odor after Cleansing No No -Primary Dressing Applied -Other Dressing hydrogel/ Purachol/ pt own purachol purachol/ Aquacel EX/ powder with aquacel Ex hydrogel hydrogel top with aquacel extra -Primary Dressing Covered/Secured with Dry Gauze & Dry Gauze & Dry Gauze, Roll Gauze, Roll Gauze, Secured with Secured with Secured with Tape Tape Tape -Other Covering SEBASTIAN RLE -Compression Wrap Treatment Response Procedure Procedure Tolerated Well Tolerated Well Pain Scale: 0-10 Numeric Is Patient Pain Free? Yes Yes Yes WC - Visit Discharge Discharge Condition Stable Stable Stable Ambulatory Status Ambulatory, Ambulatory,Cane Ambulatory,Cane Walker Transportation Private Auto Private Auto Private Auto Medication Reconcilliation completed & No provided to patient/care provider Clinical Summary of Care Provided Yes Facility Type Home Health Orders Sent Yes 11/16/24 09:23 Wound Care Center Nurse 3 #8- R PLANTAR -Ulcer Cleansing Rinsed/ Irrigated with Saline -Foul Odor after Cleansing No -Other Dressing betadine gauze -Primary Dressing Covered/Secured with Dry Gauze & Roll Gauze, Secured with Tape #5 RDorsal/Anterior Ankle -Ulcer Cleansing Rinsed/ Irrigated with Saline -Foul Odor after Cleansing No -Primary Dressing Applied NonAdherent Contact Layer -Other Dressing betadine gauze -Primary Dressing Covered/Secured with Dry Gauze & Roll Gauze, Secured with Tape -Other Covering RLE -Compression Wrap Sebastian Wrap Treatment Response Procedure Tolerated Well Pain Scale: 0-10 Numeric Is Patient Pain Free? Yes WC - Visit Discharge Discharge Condition Stable Ambulatory Status Ambulatory,Cane Transportation Private Auto Medication Reconcilliation completed & provided to patient/care provider Clinical Summary of Care Provided Facility Type Home Health Orders Sent Yes Additional Wound Wound debrided: Right plantar foot Laterality: Right Wound Grade/Stage: Gonzalez stage I Type of Debridement: Excisional debridement Anesthesia Used: 5% Lidocaine Gel Depth: Down to and including healthy tissue and in the subcutaneous layer Percentage of wound debrided: 100 Instrument Used: #15 blade Tissue Removed: Fibrous, devitalized subcutaneous, biofilm, slough Severity: Fat Layer Exposed Amount of bleeding with debridement: Mild Bleeding Controlled with: Compression and gauze Patient tolerated procedure: Patient tolerated procedure well Assessment/Plan Assessment/Plan (1) Non-pressure chronic ulcer of other part of right foot with fat layer exposed: CODE(S): L97.512 - Non-pressure chronic ulcer of other part of right foot with fat layer exposed (2) Charcot's joint of right foot: CODE(S): M14.671 - Charcot's joint, right ankle and foot (3) Type 2 diabetes mellitus with diabetic polyneuropathy: CODE(S): E11.42 - Type 2 diabetes mellitus with diabetic polyneuropathy QUALIFIERS: Diabetes mellitus department of natural resources officer insulin use: with department of natural resources officer use Qualified Code(s): E11.42 - Type 2 diabetes mellitus with diabetic polyneuropathy; Z79.4 - correction (current) use of insulin (4) Type 2 diabetes mellitus with foot ulcer: CODE(S): E11.621 - Type 2 diabetes mellitus with foot ulcer; L97.509 - Non-pressure chronic ulcer of other part of unspecified foot with unspecified severity QUALIFIERS: Diabetes mellitus long-term insulin use: with long-term use Qualified Code(s): E11.621 - Type 2 diabetes mellitus with foot ulcer; L97.509 - Non-pressure chronic ulcer of other part of unspecified foot with unspecified severity; Z79.4 - chef german (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 DOS 02/10/2024 She is 9 months out of surgery. Cicatrix at incision sites medial foot and anterior leg with no signs of infection. Ulceration dorsal foot continues granulating in well versus her previous visit. She continues healing well at this time. Does have new plantar foot ulceration secondary to skin tear due to cyclical Charcot events accompanying swelling. Ulceration predebridement measures 0.1 cm x 0.1 cm x 0.1 cm dorsal foot; plantar foot 0.1 cm x 0.1 cm x 0.1 cm Ulceration did undergo debridement as noted on clinical panel above. Postdebridement measurements 0.1 cm x 0.1 cm x 0.1 cm for dorsal foot; plantar foot 0.1 cm x 0.1 cm x 0.1 cm. Has completed all 10 applications of EpiFix #10. Collagen powder moistened with hydrogel applied to the ulcerative bed today. Aquacel Ag and DSD applied. She is to change dressing daily. Her area of ulceration to the plantar foot demonstrates no signs of infection and is likely due to swelling from new most recent Charcot event on 11/06/2024. She continues cyclic events with continued breakdown of the midfoot. Her scant hyperkeratosis at the plantar foot was debrided no expressible purulence from site. I previously discussed with her that I feel she did experience continued progression of her new acute Charcot event most likely when she removed her boot to stand barefoot in the shower at the beginning of August. Discussed it appears she continues some breakdown at the lateral foot with another event in late September and a most recent one on 11/06/2024. Discussed her continued difficulty with Charcot arthropathy. Discussed continuing the CAM boot for immobilization and plantar support modification and continuing to stay off of her foot is much as possible over the next 10-12 weeks until consolidation can continue to occur. Discussed extending the immobilization with limited weight bearing until consolidation can occur. She is understanding of this but this has been difficult. Ulceration dorsally demonstrates decreased in size vs previous visit. Her continued Charcot arthropathy changes with edema have been improving but with repeated events healing will be slow. Despite her continued progression of Charcot deformity, overall healing well and progressing towards healing of the dorsal foot ulceration. She still does demonstrate some plantar edema at site of Charcot arthropathy degeneration, but this continues improving. There is no expressible purulence. But she did cite recent dental work prior to her starting antibiotic and with active Charcot hematogenous spread remains possible thus she completed course of oral antibiotic, Augmentin 500 mg twice daily x 28 days. Labs were ordered 08/10/24 in addition to updated x-ray of the right foot. Has completed course of oral Doxycycline, Levofloxacin and Augmentin. WBC from 08/10/2024 is 12.7, ESR 36, CRP 89.20. Radiographs from 08/10/2024 do demonstrate increased osseous destruction with joint fragmentation about the Lisfranc joint and sclerosis consistent with Charcot arthropathy however osteomyelitis cannot be ruled out due to the dorsal foot wound and previous dental work. Will continue to monitor closely. She is understanding if she does develop signs and symptoms of infection which were discussed with her today she is to report to the ED for IV antibiotics as she would have failed outpatient oral antibiotic therapy. I did discuss the labs in detail with her today. She does report some improvement with the additional antibiotic. WBC from 08/28/2024 ED visit was 10.0 all other labs were within normal limits MRI had been approved at [place] prior to visit to hospital, however while in ED that evening on 08/28/24 MRI was obtained demonstrating acute Charcot changes and soft tissue swelling. No signs of osteomyelitis. She was approved for EpiFix, completed all 10 applications. Will be permitted to continue protective weightbearing to the right lower extremity in CAM boot with stiffer Plastizote insole. Discussed modification to the boot should aid in increased stability to the plantar foot. We have briefly discussed all interventions for limb salvage however despite options we cannot rule out a Charcot event leading to instability. We have also discussed likelihood of lower extremity amputation secondary to continued Charcot events. Has completed all HBO dives. HgbA1c during hospital admission was 11.3% on 02/15/2024. Sugars have been well controlled following approval of insulin on new insurance. Current HgbA1c is 6.8% on 08/10/24. The following work up and care recommendations were made: Dressing: Betadine soaked gauze to plantar ulceration site and Betadine to dorsal ulceration site dressed with Adaptic and then Betadine 2 x 2 gauze and dry sterile dressing. She is to change daily. Wash: Soap and water Tissue growth optimization: Betadine Offload: Protective weightbearing to the right lower extremity as nonweightbearing is not possible for her due to an operable herniated disc in the lumbar spine. Vascular: DP and PT pulses palpable with adequate capillary fill time. Vascular status not impacting healing at this time. Edema: Edema well-controlled. Will continue with Tubigrip stocking application Infection: No signs of infection. Pain: No pain to the ulcerative site secondary to diabetic peripheral polyneuropathy Host factors: DM type II with peripheral polyneuropathy, uncontrolled. Charcot foot right foot At this time prognosis is good and she continues healing well. However her continued Charcot events is complicating her healing as swelling still persists in addition to unstable foot with continued osseous breakdown. Will continue to monitor for infection as she has had a history of this, but recent MRI excludes this favoring acute Charcot event. I answered all the patient's questions. To return to the wound healing center in 1 week or call sooner if the patient has any questions or concerns.
--- NOTE | 2024-11-16 12:16 | WC ---
PHOTO 11/16/24 RIGHT DORSAL FOOT
== END 2024-11-20 23:59 | disposition home or self-care (01) ==
LOC: WC 08:30
PROVIDERS: PCP Family Medicine; Referring Provider Student in an Organized Health Care Education/Training Program; Visit Provider Student in an Organized Health Care Education/Training Program
DX: E11.621 Type 2 diabetes mellitus with foot ulcer (principal); L97.512 Non-pressure chronic 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; E11.42 Type 2 diabetes mellitus with diabetic polyneuropathy; Z79.4 Long term (current) use of insulin; E11.610 Type 2 diabetes mellitus with diabetic neuropathic arthropathy; M54.9 Dorsalgia, unspecified; Z79.890 Hormone replacement therapy; Z79.899 Other long term (current) drug therapy
CPT/HCPCS: 11042

== ENCOUNTER → 2024-12-06 | Outpatient (CLI) | payer MEDICAID, SELFPAY ==
--- NOTE | 2024-12-06 10:40 | RAD_ITS ---
EXAM: XR Lumbosacral Spine Flexion/Extension Only, 2 or 3 Views CLINICAL INDICATION: POSTLAMINECTOMY SYNDROME TECHNIQUE: Lateral flexion/extension views of the lumbar spine and sacrum. COMPARISON: No relevant prior studies available. FINDINGS: VERTEBRAE: Mild anterior wedging deformity of T12-L3. Grade 1 retrolisthesis of L3 over L4. Multilevel endplate degenerative changes, disc disease anterior spurring of the lumbar spine. Moderate facet arthropathy of L4-S1. SACRUM/COCCYX: Unremarkable as visualized. No acute fracture. DISC SPACES: See above. SOFT TISSUES: Unremarkable. RAD/L/S Spine Bending Flex/Ext IMPRESSION: 1. Grade 1 retrolisthesis of L3 over L4. 2. Degenerative changes as above. 3. If symptoms persist, further evaluation with MRI is recommended. Reading [facility]
--- NOTE | 2024-12-06 10:40 | RAD_ITS ---
PROCEDURE: THORACIC SPINE 3 VIEWS 12/06/2024 REASON FOR EXAM: POSTLAMINECTOMY SYNDROME TECHNIQUE: THORACIC SPINE 3 VIEWS COMPARISON: None FINDINGS: Thoracic vertebral body heights are maintained. Minimal rightward curvature of the midthoracic spine. Moderate multilevel disc height loss with endplate osteophyte formation. Visualized lung harris are clear. Soft tissues are unremarkable. RAD/Thoracic Spine 3 Views IMPRESSION: Moderate multilevel degenerative changes of the thoracic spine. Reading Location: [facility]
--- NOTE | 2024-12-06 10:40 | RAD_ITS ---
EXAM: XR Lumbosacral Spine Flexion/Extension Only, 2 or 3 Views CLINICAL INDICATION: POSTLAMINECTOMY SYNDROME TECHNIQUE: Lateral flexion/extension views of the lumbar spine and sacrum. COMPARISON: No relevant prior studies available. FINDINGS: VERTEBRAE: Mild anterior wedging deformity of T12-L3. Grade 1 retrolisthesis of L3 over L4. Multilevel endplate degenerative changes, disc disease anterior spurring of the lumbar spine. Moderate facet arthropathy of L4-S1. SACRUM/COCCYX: Unremarkable as visualized. No acute fracture. DISC SPACES: See above. SOFT TISSUES: Unremarkable. RAD/L/S Spine Bending Flex/Ext IMPRESSION: 1. Grade 1 retrolisthesis of L3 over L4. 2. Degenerative changes as above. 3. If symptoms persist, further evaluation with MRI is recommended. Reading Location[facility]
--- NOTE | 2024-12-06 10:40 | RAD_ITS ---
PROCEDURE: THORACIC SPINE 3 VIEWS 12/06/2024 REASON FOR EXAM: POSTLAMINECTOMY SYNDROME TECHNIQUE: THORACIC SPINE 3 VIEWS COMPARISON: None FINDINGS: Thoracic vertebral body heights are maintained. Minimal rightward curvature of the midthoracic spine. Moderate multilevel disc height loss with endplate osteophyte formation. Visualized lung harris are clear. Soft tissues are unremarkable. RAD/Thoracic Spine 3 Views IMPRESSION: Moderate multilevel degenerative changes of the thoracic spine. Reading Location: [facility]
== END | disposition home or self-care (01) ==
LOC: RAD 10:27
PROVIDERS: PCP Family Medicine; Referring Provider Anesthesiology Pain Medicine; Visit Provider Anesthesiology Pain Medicine
DX: M96.1 Postlaminectomy syndrome, not elsewhere classified (principal)
CPT/HCPCS: 72072; 72120

== ENCOUNTER 2024-12-21 08:30 | Outpatient (RCR) | payer MEDICAID, SELFPAY ==
[2024-11-23 08:31] VITALS: BP 107/64; PULSE 73; RESP 15; TEMP 36.1
[2024-11-30 08:28] VITALS: BP 112/84; PULSE 104; RESP 16; TEMP 36
[2024-12-07 08:32] VITALS: BP 102/69; PULSE 87; RESP 16; TEMP 36.7
[2024-12-14 08:31] VITALS: BP 124/72; PULSE 82; RESP 18; TEMP 36.1
[2024-12-21 08:25] VITALS: BP 111/74; PULSE 94; RESP 18; TEMP 36.4
== END 2024-12-21 23:59 | disposition home or self-care (01) ==
LOC: WC 08:30
PROVIDERS: PCP Family Medicine; Referring Provider Student in an Organized Health Care Education/Training Program; Visit Provider Student in an Organized Health Care Education/Training Program
DX: E11.621 Type 2 diabetes mellitus with foot ulcer (principal); L97.512 Non-pressure chronic 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; E11.610 Type 2 diabetes mellitus with diabetic neuropathic arthropathy; Z79.4 Long term (current) use of insulin; E11.42 Type 2 diabetes mellitus with diabetic polyneuropathy; Z79.2 Long term (current) use of antibiotics; M54.9 Dorsalgia, unspecified; Z79.890 Hormone replacement therapy; Z79.899 Other long term (current) drug therapy
CPT/HCPCS: 11042; 11043; 87070; 87075; 87077; 87176; 87186; 87205

== ENCOUNTER 2025-01-18 08:30 | Outpatient (RCR) | payer MEDICAID, SELFPAY ==
[2024-12-28 08:38] VITALS: BP 136/71; PULSE 78; RESP 18; TEMP 35.9
--- NOTE | 2024-12-28 13:17 | WC ---
PHOTO-RIGHT DORSAL/ANT ANKLE 12/28/24
--- NOTE | 2024-12-28 13:19 | WC ---
PHOTO-RIGHT PLANTAR 12/28/24
--- NOTE | 2024-12-28 13:20 | PCM.WC.PN ---
History of Present Illness Date of Service: 12/28/24 Chief Complaint: Diabetic right foot ulceration History of Wound: Ms. Falk is a 58-year-old currently being seen at the wound center for right foot/ankle ulcer. She has finished hyperbaric oxygen therapy for the diabetic foot ulceration involving her right foot. She has been under the care of Dr. Jason Lewis, [employer], relative to the management of her diabetic foot ulceration. Review of the patient's medical record indicates that she has tolerated HBOT well and there has been corresponding significant improvement in ulcer. 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 Blood glucose readings have been largely stable. No chest pain, tightness, blurry vision or concerns reported. Subjective Subjective This is a 58-year-old female who continues to follow with the wound care center for right dorsal foot ulceration. Reports continued improvement of dorsal ulceration with Dakin's and states plantar ulceration improving with iodoform packing. Continues oral antibiotics and states she is feeling better. Ambulating in CAM boot with modification to the boot. She continues to rest her foot as much as possible with continued immobilizing in CAM boot. She understands her Foot remains unstable due to continued Charcot events which is most likely why she opened new ulcer on plantar foot. Does admit to continued back pain with herniated disc which makes ambulation difficult. Her disability claim is going to be approved/finalized due to multiple medical conditions but she is still awaiting final paperwork. Denies constitutional symptoms. Denies further complaints. Objective Data Objective Data Vital Signs: Vital Signs Temp Pulse Resp BP O2 Del Method 96.7 F L 78 18 136/71 H Room Air 12/28/24 08:38 12/28/24 08:38 12/28/24 08:38 12/28/24 08:38 12/28/24 08:38 Oxygen Delivery Method Room Air Physical Exam Const alert, oriented x3 and no apparent distress General Appearance: cooperative HEENT normocephalic Eyes General Eye: normal appearance of both eyes Neck General: normal visual inspection Lymph Lymphatic: no lymphadenopathy noted and no lymphedema noted Resp normal respiratory effort Cardio regular rate and regular rhythm Extremity no calf tenderness Extremity Narrative: Right lower extremity: Vascular: DP and PT pulses palpable with adequate capillary fill time to the digits. Normal temperature gradient. Hair growth is absent to the digits. Neurologic: Gross sensation intact. Absent protective sensation consistent with diabetic peripheral polyneuropathy Musculoskeletal: No pain to palpation about the ulcerative site secondary to diabetic peripheral polyneuropathy. There is a Charcot foot deformity noted of the right foot. No pain to palpation about the ulcerative site. There is pain to palpation along the 5th and 4th metatarsals with plantar edema of the foot secondary to recent Charcot event with likely fracture of the metatarsal. Dermatologic: Incision site medial foot healed with cicatrix. No signs of infection. Incision site anterior leg with cicatrix proximally and distally. No signs of infection. There is a full thickness ulceration dorsally along the midfoot medial to the incision site with healthy granular tissue at the base with macerated tissue at the margin secondary to serous drainage. No purulent drainage from dorsal ulceration site. Plantar foot demonstrates full-thickness ulceration site with improving edema secondary to continued Charcot degenerative arthropathy progression. No purulence expressible from plantar foot. Skin no rashes or lesions noted Neuro moves all extremities Debridement Note Debridement Note Wound debrided: Dorsal right foot Laterality: Right Wound Grade/Stage: Gonzalez stage III Type of Debridement: Excisional debridement Anesthesia Used: 5% Lidocaine Gel Depth: Down to and including healthy tissue and in the subcutaneous layer Percentage of wound debrided: 100 Instrument Used: #15 blade Tissue Removed: Fibrous, devitalized subcutaneous, biofilm, slough Severity: Fat Layer Exposed Amount of bleeding with debridement: Mild Bleeding Controlled with: Compression and gauze Patient tolerated procedure: Patient tolerated procedure well Post-Debridement Measurements and Additional Note: Post-Debridement Measurements/Treatment - Nurse 1 - General Ulcer Assessment Start: 12/28/24 08:29 Freq: Status: Active Protocol: [email or web address] Activity Type Activity Date Activity User E-sign Co-sign Detail Recorded Client Recorded Date Recorded By Document 12/28/24 08:38 KW [id number] 12/28/24 08:49 KW 12/28/24 08:38 - Today's Visit Information Type of service Follow-up Visit (Physician/[employer] ) Arrival Mode Ambulatory Patient Identification Verified (Name & Yes ) Vital Signs Temperature (97.8 F-99.1 F) 96.7 F L Temperature Source Temporal Pulse Rate (60-100) 78 Pulse Location Monitor Respiratory Rate (12-18) 18 Respiratory rate source Observation Oxygen Delivery Method Room Air Blood Pressure (90/60-120/80) 136/71 H Blood Pressure Mean (mm Hg) 92 Source Monitor Position Semi-Fowlers Blood Pressure Location Left Arm Pain Scale: 0-10 Numeric Is Patient Pain Free? Yes WC - Nurse 1 - General Ulcer Measurement Start: 12/28/24 08:29 Freq: Status: Active Protocol: Activity Type Activity Date Activity User E-sign Co-sign Detail Recorded Client Recorded Date Recorded By Document 12/28/24 08:38 KW [id number] 12/28/24 08:49 KW 12/28/24 08:38 Wound Center Nurse 1 #7- R PLANTAR FOOT -Current Size (cm) - Length 1.2 -Current Size (cm) - Width 0.8 -Current Size (cm) - Depth 2 -Total Square Cm 0.96 -Date of Last Picture (Recall this 12/28/24 field) -Tunneling Yes -Tunneling Position (O'clock) 6 -Tunneling Distance (cm) 5 -Exudate Amt Medium -Exudate Type Serosanguineous -Wound Margin Thickened -Granulation Amt Large (67-100%) -Granulation Quality Red -Texture (Marie-wound Skin Appearance) Assessed,Callus ,Localized Edema -Moisture (Marie-wound Skin Appearance) Assessed -Color (Marie-wound Skin Appearance) Assessed -Temperature (Marie-wound Skin No Abnormality Appearance) (Pt Warm) -Tenderness on Palpation (Marie-wound No Skin Appearance) -Ulcer Cleansing Soap and Water -Foul Odor after Cleansing No #5 RDorsal/Anterior Ankle -Current Size (cm) - Length 0.5 -Current Size (cm) - Width 1 -Current Size (cm) - Depth 0.1 -Total Square Cm 0.5 -Exudate Amt Medium -Exudate Type Serosanguineous -Wound Margin Distinct, Outline Attached -Granulation Amt Large (67-100%) -Granulation Quality [place] -Texture (Marie-wound Skin Appearance) Assessed -Moisture (Marie-wound Skin Appearance) Assessed -Color (Marie-wound Skin Appearance) Assessed -Temperature (Marie-wound Skin No Abnormality Appearance) (Pt Warm) -Tenderness on Palpation (Marie-wound No Skin Appearance) -Ulcer Cleansing Soap and Water -Foul Odor after Cleansing No WC - Nurse 2 - General Ulcer CM Notes Start: 12/28/24 08:29 Freq: Status: Active Protocol: Activity Type Activity Date Activity User E-sign Co-sign Detail Recorded Client Recorded Date Recorded By Document 12/28/24 09:22 DS [id number] 12/28/24 09:26 DS 12/28/24 09:22 Wound Center Nurse 2 #7- R PLANTAR FOOT -Time 09:22 -Correct Patient Yes -Correct Side, Site, Position Yes -Correct Procedure Yes -Procedure Performed Yes -Type of Procedure Debridement -Clinical Debridement Subcutaneous -Tissue Removed Subcutaneous -Post Debridement (cm) - Length 0.5 -Post Debridement (cm) - Width 0.7 -Post Debridement (cm) - Depth 0.1 -Total Square (Post) (cm) 0.35 -Area of Debridement (cm) - Length 0.5 -Area of Debridement (cm) - Width 0.7 -Total Square (Area) (cm) 0.35 -Tunneling No -Undermining/Tunneling No -Circular Undermining No -Wound/Ulcer Outcome Not Healed -Ulcer Cleansing Rinsed/ Irrigated with Saline -Foul Odor after Cleansing No -Bioengineered Tissue No -Bleeding Controlled with Pressure -Treatment Response Procedure Tolerated Well -Debridement - Subq, 1st 20sq cm Yes #5 RDorsal/Anterior Ankle -Time 09:22 -Correct Patient Yes -Correct Side, Site, Position Yes -Correct Procedure Yes -Procedure Performed Yes -Type of Procedure Debridement -Clinical Debridement Muscle / Fascia -Tissue Removed Muscle -Post Debridement (cm) - Length 0.7 -Post Debridement (cm) - Width 1.0 -Post Debridement (cm) - Depth 0.9 -Total Square (Post) (cm) 0.70 -Area of Debridement (cm) - Length 0.7 -Area of Debridement (cm) - Width 0.9 -Total Square (Area) (cm) 0.63 -Tunneling Yes -Tunneling Position (O'clock) 6 -Tunneling Distance (cm) 5.5 -Undermining/Tunneling No -Circular Undermining No -Wound/Ulcer Outcome Not Healed -Ulcer Cleansing Rinsed/ Irrigated with Saline -Foul Odor after Cleansing No -Bioengineered Tissue No -Bleeding Controlled with Pressure -Debridement - Muscle / Fascia, 1st Yes 20sq cm Pain Scale: 0-10 Numeric Is Patient Pain Free? Yes WC - Nurse 3 - General Ulcer D/C NN Start: 12/28/24 08:29 Freq: Status: Active Protocol: Activity Type Activity Date Activity User E-sign Co-sign Detail Recorded Client Recorded Date Recorded By Document 12/28/24 09:42 DL [id number] 12/28/24 09:43 DL 12/28/24 09:42 Wound Care Center Nurse 3 #7- R PLANTAR FOOT -Ulcer Cleansing Soap and Water -Foul Odor after Cleansing No -Other Dressing Iodoform Packing -Primary Dressing Covered/Secured with Dry Gauze & Roll Gauze, Secured with Tape -Other Covering ABD #5 RDorsal/Anterior Ankle -Ulcer Cleansing Wound Cleanser -Foul Odor after Cleansing No -Other Dressing Dakins -Primary Dressing Covered/Secured with Dry Gauze & Roll Gauze, Secured with Tape -Other Covering ABD/ARMANDO Treatment Response Procedure Tolerated Well Pain Scale: 0-10 Numeric Is Patient Pain Free? No WC - Visit Discharge Discharge Condition Stable Ambulatory Status Ambulatory Transportation Private Auto Additional Wound Wound debrided: Plantar right foot Laterality: Right Wound Grade/Stage: Gonzalez stage II Type of Debridement: Excisional debridement Anesthesia Used: 5% Lidocaine Gel Depth: Down to and including healthy tissue, in the subcutaneous layer and to muscle Percentage of wound debrided: 100 Instrument Used: #15 blade Tissue Removed: Fibrous, devitalized subcutaneous, biofilm, slough Severity: Fat Layer Exposed Amount of bleeding with debridement: Mild Bleeding Controlled with: Compression and gauze Patient tolerated procedure: Patient tolerated procedure well Assessment/Plan Assessment/Plan (1) Non-pressure chronic ulcer of other part of right foot with fat layer exposed: CODE(S): L97.512 - Non-pressure chronic 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 (2) Non-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: CODE(S): L97.513 - Non-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 (3) Charcot's joint of right foot: CODE(S): M14.671 - Charcot's joint, right ankle and foot (4) Type 2 diabetes mellitus with diabetic polyneuropathy: CODE(S): E11.42 - Type 2 diabetes mellitus with diabetic polyneuropathy QUALIFIERS: Diabetes mellitus exterminator helper termite insulin use: with exterminator helper termite use Qualified Code(s): E11.42 - Type 2 diabetes mellitus with diabetic polyneuropathy; Z79.4 - roasterman (current) use of insulin (5) Type 2 diabetes mellitus with foot ulcer: CODE(S): E11.621 - Type 2 diabetes mellitus with foot ulcer; L97.509 - Non-pressure chronic ulcer of other part of unspecified foot with unspecified severity QUALIFIERS: Diabetes mellitus snf insulin use: with exterminator helper termite use Qualified Code(s): E11.621 - Type 2 diabetes mellitus with foot ulcer; L97.509 - Non-pressure chronic ulcer of other part of unspecified foot with unspecified severity; Z79.4 - roasterman (current) use of insulin PLAN: Plan Patient seen and evaluated Cicatrix at incision sites medial foot and anterior leg with no signs of infection. Ulceration dorsal foot continues granulating in well versus her previous visit. She continues healing well at this time. Plantar foot ulceration secondary to edema due to cyclical Charcot events Ulceration predebridement: Dorsal foot : 0.4 cm x 0.6 cm x 0.1 cm Plantar Foot: 0.6 cm x 0.9 cm x 0.9 Postdebridement: Dorsal foot: 0.5 cm x 0.7 cm x 0.1 cm Plantar foot: 0.7 cm x 1.0 cm x 0.9 cm with 5.5 cm proximal tunnel plantarly. This has improved with iodoform packing Ulceration did undergo debridement as noted on clinical panel above. Has completed all 10 applications of EpiFix #10. Dakin's wet to dry to dorsal ulceration. She is to change dressing daily. This is aiding in decreasing wound size and thus we will continue with the current Dakin's. Plantar ulceration site packed with iodoform packing gauze. She will change dressing daily. Her area of ulceration to the plantar foot secondary to swelling from continued Charcot event. She continues cyclic events with continued breakdown of the midfoot. Her scant hyperkeratosis at the plantar foot was debrided no expressible purulence from site. Plantar ulceration site demonstrates no purulent drainage. However swab cultures were obtained 12/21/2024, awaiting results. I previously discussed with her that I feel she did experience continued progression of her new acute Charcot event most likely when she removed her boot to stand barefoot in the shower at the beginning of August. Discussed it appears she continues some breakdown at the lateral foot with another event in late September and a most recent one on 11/06/2024. Discussed her continued difficulty with Charcot arthropathy. Discussed continuing the CAM boot for immobilization and plantar support modification and continuing to stay off of her foot is much as possible until consolidation can continue to occur. Previously have discussed extending the immobilization with limited weight bearing until consolidation can occur and foot becomes more stable. She is understanding of this but this has been difficult. Ulcerations dorsal and plantar demonstrate decrease in size vs previous visit 12/21/24: Due to new ulcerative site on the plantar aspect of the foot she was prescribed oral antibiotic Augmentin 500 mg twice daily x 28 days (stop date 01/17/2025) Her continued Charcot arthropathy changes with edema was improving but with repeated events and new plantar ulceration healing will be slow. WBC from 08/10/2024 is 12.7, ESR 36, CRP 89.20. Radiographs from 08/10/2024 do demonstrate increased osseous destruction with joint fragmentation about the Lisfranc joint and sclerosis consistent with Charcot arthropathy however osteomyelitis cannot be ruled out due to the dorsal foot wound and previous dental work. Will continue to monitor closely. She is understanding if she does develop signs and symptoms of infection which were discussed with her today she is to report to the ED for IV antibiotics as she would have failed outpatient oral antibiotic therapy. I did discuss the labs in detail with her today. She does report some improvement with the additional antibiotic. WBC from 08/28/2024 ED visit was 10.0 all other labs were within normal limits MRI had been approved at [place] prior to visit to hospital, however while in ED that evening on 08/28/24 MRI was obtained demonstrating acute Charcot changes and soft tissue swelling. No signs of osteomyelitis. Will be permitted to continue protective weightbearing to the right lower extremity in CAM boot with stiffer Plastizote insole. Previously discussed modification to the boot should aid in increased stability to the plantar foot. We have briefly discussed all interventions for limb salvage however despite options we cannot rule out a Charcot event leading to instability. We have also discussed likelihood of lower extremity amputation secondary to continued Charcot events. Has completed all HBO dives. HgbA1c during hospital admission was 11.3% on 02/15/2024. Sugars have been well controlled following approval of insulin on new insurance. Current HgbA1c is 6.8% on 08/10/24. The following work up and care recommendations were made: Dressing: Dakin's wet-to-dry to dorsal ulceration site. She is to change daily. Iodoform packing gauze to the plantar aspect of the foot she is to also change daily. Dry sterile dressing applied to right foot. Wash: Soap and water Tissue growth optimization: Dakin's and iodoform packing gauze Offload: Protective weightbearing to the right lower extremity as nonweightbearing is not possible for her due to an operable herniated disc in the lumbar spine. Vascular: DP and PT pulses palpable with adequate capillary fill time. Vascular status not impacting healing at this time. Edema: Edema well-controlled. Will continue with Tubigrip stocking application Infection: No signs of infection. Pain: No pain to the ulcerative site secondary to diabetic peripheral polyneuropathy Host factors: DM type II with peripheral polyneuropathy, uncontrolled. Charcot foot right foot Her continued Charcot events is complicating her healing as swelling still persists in addition to unstable foot with continued osseous breakdown. Will continue to monitor for infection as she has had a history of this, but recent MRI excludes this favoring acute Charcot event. I answered all the patient's questions. To return to the wound healing center in 1 week or call sooner if the patient has any questions or concerns.
[2025-01-04 08:33] VITALS: BP 116/83; PULSE 91; RESP 16; TEMP 36
--- NOTE | 2025-01-04 20:19 | PN.PCM_ITS ---
History of Present Illness Date of Service: 01/04/25 Chief Complaint: Diabetic right foot ulceration History of Wound: Ms. Falk is a 58-year-old currently being seen at the wound center for right foot/ankle ulcer. She has finished hyperbaric oxygen therapy for the diabetic foot ulceration involving her right foot. She has been under the care of Dr. Jason Lewis, [employer], relative to the management of her diabetic foot ulceration. Review of the patient's medical record indicates that she has tolerated HBOT well and there has been corresponding significant improvement in ulcer. 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 Blood glucose readings have been largely stable. No chest pain, tightness, blurry vision or concerns reported. Subjective Subjective This is a 59-year-old female who continues to follow with the wound care center for right dorsal foot ulceration. Reports continued improvement of dorsal ulceration with Dakin's and states plantar ulceration improving with iodoform packing. Continues oral antibiotics and states she is doing well. Ambulating in CAM boot with modification to the boot. She continues to rest her foot as much as possible with continued immobilizing in CAM boot. She understands her Foot remains unstable due to continued Charcot events which is most likely why she opened new ulcer on plantar foot. Does admit to continued back pain with herniated disc which makes ambulation difficult. Her disability claim is going to be approved/finalized due to multiple medical conditions but she is still awaiting final paperwork. Denies constitutional symptoms. Denies further complaints. Objective Data Objective Data Vital Signs: Vital Signs Temp Pulse Resp BP O2 Del Method 96.8 F L 91 16 116/83 H Room Air 01/04/25 08:33 01/04/25 08:33 01/04/25 08:33 01/04/25 08:33 12/28/24 08:38 Oxygen Delivery Method Room Air Physical Exam Const alert, oriented x3 and no apparent distress General Appearance: cooperative HEENT normocephalic Eyes General Eye: normal appearance of both eyes Neck General: normal visual inspection Lymph Lymphatic: no lymphadenopathy noted and no lymphedema noted Resp normal respiratory effort Cardio regular rate and regular rhythm Extremity no calf tenderness Extremity Narrative: Right lower extremity: Vascular: DP and PT pulses palpable with adequate capillary fill time to the digits. Normal temperature gradient. Hair growth is absent to the digits. Neurologic: Gross sensation intact. Absent protective sensation consistent with diabetic peripheral polyneuropathy Musculoskeletal: No pain to palpation about the ulcerative site secondary to diabetic peripheral polyneuropathy. There is a Charcot foot deformity noted of the right foot. No pain to palpation about the ulcerative site. There is pain to palpation along the 5th and 4th metatarsals with plantar edema of the foot secondary to recent Charcot event with likely fracture of the metatarsal. Dermatologic: Incision site medial foot healed with cicatrix. No signs of infection. Incision site anterior leg with cicatrix proximally and distally. No signs of infection. There is a full thickness ulceration dorsally along the midfoot medial to the incision site with healthy granular tissue at the base with macerated tissue at the margin secondary to serous drainage. No purulent drainage from dorsal ulceration site. Plantar foot demonstrates full-thickness ulceration site with improving edema secondary to continued Charcot degenerative arthropathy progression. No purulence expressible from plantar foot. Skin no rashes or lesions noted Neuro moves all extremities Debridement Note Debridement Note Wound debrided: Right plantar foot Laterality: Right Wound Grade/Stage: Gonzalez stage II Type of Debridement: Excisional debridement Anesthesia Used: 5% Lidocaine Gel Depth: Down to and including healthy tissue, in the subcutaneous layer and to muscle Percentage of wound debrided: 100 Instrument Used: 3mm curette and #15 blade Tissue Removed: Fibrous, devitalized subcutaneous, biofilm, slough Severity: Fat Layer Exposed Amount of bleeding with debridement: Mild Bleeding Controlled with: Compression and gauze Patient tolerated procedure: Patient tolerated procedure well Post-Debridement Measurements and Additional Note: Post-Debridement Measurements/Treatment - Nurse 1 - General Ulcer Assessment Start: 12/28/24 08:29 Freq: Status: Active Protocol: [email or web address] Activity Type Activity Date Activity User E-sign Co-sign Detail Recorded Client Recorded Date Recorded By Document 12/28/24 08:38 KW [id number] 12/28/24 08:49 KW Document 01/04/25 08:33 DL [id number] 01/04/25 08:40 DL 12/28/24 01/04/25 08:38 08:33 - Today's Visit Information Type of service Follow-up Visit Follow-up Visit (Physician/VOICE STUDIES DIRECTOR (Physician/VOICE STUDIES DIRECTOR ) ) Arrival Mode Ambulatory Ambulatory Transfer Assistance None Patient Identification Verified (Name & Yes Yes ) Patient Requires Transmission-Based No Precautions Vital Signs Temperature (97.8 F-99.1 F) 96.7 F L 96.8 F L Temperature Source Temporal Temporal Pulse Rate (60-100) 78 91 Pulse Location Monitor Monitor Respiratory Rate (12-18) 18 16 Respiratory rate source Observation Observation Oxygen Delivery Method Room Air Blood Pressure (90/60-120/80) 136/71 H 116/83 H Blood Pressure Mean (mm Hg) 92 94 Source Monitor Monitor Position Semi-Fowlers Blood Pressure Location Left Arm History Since Last Visit- (Skip if this is Patient's initial visit) Have you changed medications since your No last visit? Any new allergies or adverse reactions No Had a fall/change in ADL's that may No increase risk of falls Signs or symptoms of abuse and/or No neglect since last visit Have you been in the hospital since your No last visit? Has dressing in place as prescribed Yes Has compression in place as prescribed N/A Has offloadiing in place as prescribed Yes Left Footwear Multipodus Splint/Boot Pain Scale: 0-10 Numeric Is Patient Pain Free? Yes Yes WC - Nurse 1 - General Ulcer Measurement Start: 12/28/24 08:29 Freq: Status: Active Protocol: Activity Type Activity Date Activity User E-sign Co-sign Detail Recorded Client Recorded Date Recorded By Document 12/28/24 08:38 KW [id number] 12/28/24 08:49 KW Document 01/04/25 08:33 DL [id number] 01/04/25 08:40 DL 12/28/24 01/04/25 08:38 08:33 Wound Center Nurse 1 #7- R PLANTAR FOOT -Current Size (cm) - Length 1.2 0.5 -Current Size (cm) - Width 0.8 0.6 -Current Size (cm) - Depth 2 1.6 -Total Square Cm 0.96 0.30 -Date of Last Picture (Recall this 12/28/24 field) -Photo Taken Yes -Tunneling Yes -Tunneling Position (O'clock) 6 -Tunneling Distance (cm) 5 -Maximum Distance #2 (cm) 2.9 -Circular Undermining Yes -Exudate Amt Medium Small -Exudate Type Serosanguineous Sanguineous -Wound Margin Thickened Distinct, Outline Attached -Granulation Amt Large (67-100%) Large (67-100%) -Granulation Quality Red [place] -Necrosis Amt None Present (0 %) -Necrotic Tissue Type Adherent Slough -Structure Exposed N/A -Texture (Marie-wound Skin Appearance) Assessed,Callus Scarring ,Localized Edema -Moisture (Marie-wound Skin Appearance) Assessed Dry/Scaly -Color (Marie-wound Skin Appearance) Assessed No Abnormality -Temperature (Marie-wound Skin No Abnormality No Abnormality Appearance) (Pt Warm) (Pt Warm) -Tenderness on Palpation (Marie-wound No Skin Appearance) -Ulcer Cleansing Soap and Water Soap and Water -Foul Odor after Cleansing No No -Anesthetic Used 5% Lidocaine Gel #5 RDorsal/Anterior Ankle -Current Size (cm) - Length 0.5 0.3 -Current Size (cm) - Width 1 0.2 -Current Size (cm) - Depth 0.1 0.1 -Total Square Cm 0.5 0.06 -Exudate Amt Medium None Present -Exudate Type Serosanguineous -Wound Margin Distinct, Distinct, Outline Outline Attached Attached -Granulation Amt Large (67-100%) Large (67-100%) -Granulation Quality [place] -Necrosis Amt None Present (0 %) -Structure Exposed N/A -Texture (Marie-wound Skin Appearance) Assessed Scarring -Moisture (Marie-wound Skin Appearance) Assessed Dry/Scaly -Color (Marie-wound Skin Appearance) Assessed No Abnormality -Temperature (Marie-wound Skin No Abnormality No Abnormality Appearance) (Pt Warm) (Pt Warm) -Tenderness on Palpation (Marie-wound No Skin Appearance) -Ulcer Cleansing Soap and Water Soap and Water -Foul Odor after Cleansing No -Anesthetic Used 5% Lidocaine Gel WC - Nurse 2 - General Ulcer CM Notes Start: 12/28/24 08:29 Freq: Status: Active Protocol: Activity Type Activity Date Activity User E-sign Co-sign Detail Recorded Client Recorded Date Recorded By Document 12/28/24 09:22 DS [id number] 12/28/24 09:26 DS Document 01/04/25 09:27 [facility] [id number] 01/04/25 09:37 BMF 12/28/24 01/04/25 09:22 09:27 Wound Center Nurse 2 #7- R PLANTAR FOOT -Time 09: 09:28 -Correct Patient Yes Yes -Correct Side, Site, Position Yes Yes -Correct Procedure Yes Yes -Procedure Performed Yes Yes -Type of Procedure Debridement Debridement -Clinical Debridement Subcutaneous Muscle / Fascia -Tissue Removed Subcutaneous Muscle,Fascia -Post Debridement (cm) - Length 0.5 0.5 -Post Debridement (cm) - Width 0.7 0.5 -Post Debridement (cm) - Depth 0.1 0.7 -Total Square (Post) (cm) 0.35 0.25 -Area of Debridement (cm) - Length 0.5 0.5 -Area of Debridement (cm) - Width 0.7 0.5 -Total Square (Area) (cm) 0.35 0.25 -Tunneling No Yes -Tunneling Position (O'clock) 6 -Tunneling Distance (cm) 5 -Undermining/Tunneling No -Circular Undermining No -Wound/Ulcer Outcome Not Healed Not Healed -Ulcer Cleansing Rinsed/ Rinsed/ Irrigated with Irrigated with Saline Saline -Foul Odor after Cleansing No No -Bioengineered Tissue No No -Bleeding Controlled with Pressure Pressure -Treatment Response Procedure Procedure Tolerated Well Tolerated Well -Debridement - Subq, 1st 20sq cm Yes -Debridement - Muscle / Fascia, 1st Yes 20sq cm #5 RDorsal/Anterior Ankle -Time 09:22 09:31 -Correct Patient Yes Yes -Correct Side, Site, Position Yes Yes -Correct Procedure Yes Yes -Procedure Performed Yes Yes -Type of Procedure Debridement Debridement -Clinical Debridement Muscle / Fascia Subcutaneous -Tissue Removed Muscle Subcutaneous -Post Debridement (cm) - Length 0.7 0.6 -Post Debridement (cm) - Width 1.0 0.6 -Post Debridement (cm) - Depth 0.9 0.1 -Total Square (Post) (cm) 0.70 0.36 -Area of Debridement (cm) - Length 0.7 0.6 -Area of Debridement (cm) - Width 0.9 0.6 -Total Square (Area) (cm) 0.63 0.36 -Tunneling Yes No -Tunneling Position (O'clock) 6 -Tunneling Distance (cm) 5.5 -Undermining/Tunneling No No -Circular Undermining No No -Wound/Ulcer Outcome Not Healed Not Healed -Ulcer Cleansing Rinsed/ Rinsed/ Irrigated with Irrigated with Saline Saline -Foul Odor after Cleansing No -Bioengineered Tissue No -Bleeding Controlled with Pressure Pressure -Treatment Response Procedure Tolerated Well -Debridement - Subq, 1st 20sq cm Yes -Debridement - Muscle / Fascia, 1st Yes 20sq cm Pain Scale: 0-10 Numeric Is Patient Pain Free? Yes Yes - Nurse 3 - General Ulcer D/C NN Start: 12/28/24 08:29 Freq: Status: Active Protocol: Activity Type Activity Date Activity User E-sign Co-sign Detail Recorded Client Recorded Date Recorded By Document 12/28/24 09:42 DL [id number] 12/28/24 09:43 DL Document 01/04/25 09:54 IA [id number] 01/04/25 09:56 MT 12/28/24 01/04/25 09:42 09:54 Wound Care Center Nurse 3 #7- R PLANTAR FOOT -Ulcer Cleansing Soap and Water -Foul Odor after Cleansing No No -Negative Pressure Wound Therapy N/A -Primary Dressing Applied Nugauze, Iodoform 1in -Other Dressing Iodoform dakins, abd x 2 Packing -Primary Dressing Covered/Secured with Dry Gauze & Dry Gauze,Dry Roll Gauze, Gauze & Roll Secured with Gauze Tape -Other Covering ABD -Nugauze, Iodoform 1in 1 #5 RDorsal/Anterior Ankle -Ulcer Cleansing Wound Cleanser -Foul Odor after Cleansing No -Other Dressing Dakins -Primary Dressing Covered/Secured with Dry Gauze & Roll Gauze, Secured with Tape -Other Covering ABD/SEBASTIAN RLE -Compression Wrap Sebastian Wrap Treatment Response Procedure Tolerated Well Pain Scale: 0-10 Numeric Is Patient Pain Free? No Yes - Visit Discharge Discharge Condition Stable Stable Ambulatory Status Ambulatory Ambulatory Transportation Private Auto Private Auto Medication Reconcilliation completed & No provided to patient/care provider Clinical Summary of Care Provided Yes Additional Wound Wound debrided: Right dorsal foot Laterality: Right Wound Grade/Stage: Gonzalez stage III Type of Debridement: Excisional debridement Anesthesia Used: 5% Lidocaine Gel Depth: Down to and including healthy tissue and in the subcutaneous layer Percentage of wound debrided: 100 Instrument Used: 3mm curette and #15 blade Tissue Removed: Fibrous, devitalized subcutaneous, biofilm, slough Severity: Fat Layer Exposed Amount of bleeding with debridement: Mild Bleeding Controlled with: Compression and gauze Patient tolerated procedure: Patient tolerated procedure well Assessment/Plan Assessment/Plan (1) Non-pressure chronic ulcer of other part of right foot with fat layer exposed: CODE(S): L97.512 - Non-pressure chronic ulcer of other part of right foot with fat layer exposed (2) Non-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: CODE(S): L97.513 - Non-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 (3) Charcot's joint of right foot: CODE(S): M14.671 - Charcot's joint, right ankle and foot (4) Type 2 diabetes mellitus with diabetic polyneuropathy: CODE(S): E11.42 - Type 2 diabetes mellitus with diabetic polyneuropathy QUALIFIERS: 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 Qualified Code(s): E11.42 - Type 2 diabetes mellitus with diabetic polyneuropathy; Z79.4 - residential (current) use of insulin (5) Type 2 diabetes mellitus with foot ulcer: CODE(S): E11.621 - Type 2 diabetes mellitus with foot ulcer; L97.509 - Non-pressure chronic ulcer of other part of unspecified foot with unspecified severity QUALIFIERS: 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 Ulceration dorsal foot continues granulating in well versus her previous visit. She continues healing well at this time. Plantar foot ulceration secondary to edema due to cyclical Charcot events Ulceration predebridement: Dorsal foot : 0.5 cm x 0.5 cm x 0.1 cm Plantar Foot: 0.4 cm x 0.4 cm x 0.7 Postdebridement: Dorsal foot: 0.6 cm x 0.6 cm x 0.1 cm Plantar foot: 0.5 cm x 0.5 cm x 0.7 cm with 5.0 cm proximal tunnel plantarly. This has improved with iodoform packing Ulceration did undergo debridement as noted on clinical panel above. Has comp leted all 10 applications of EpiFix #10. Dakin's wet to dry to dorsal ulceration. She is to change dressing daily. This is aiding in decreasing wound size and thus we will continue with the current Dakin's. Plantar ulceration site packed with iodoform packing gauze. She will change dressing daily. Her area of ulceration to the plantar foot secondary to swelling from continued Charcot event. She continues cyclic events with continued breakdown of the midfoot. Her scant hyperkeratosis at the plantar foot was debrided no expressible purulence from site. Plantar ulceration site demonstrates no purulent drainage. However swab cultures were obtained 12/21/2024, awaiting results. I previously discussed with her that I feel she did experience continued progression of her new acute Charcot event most likely when she removed her boot to stand barefoot in the shower at the beginning of August. Discussed it appears she continues some breakdown at the lateral foot with another event in late September and a most recent one on 11/06/2024. Discussed her continued difficulty with Charcot arthropathy. Discussed continuing the CAM boot for immobilization and plantar support modification and continuing to stay off of her foot is much as possible until consolidation can continue to occur. Previously have discussed extending the immobilization with limited weight bearing until consolidation can occur and foot becomes more stable. She is understanding of this but this has been difficult. Ulcerations dorsal and plantar continue to demonstrate decrease in size vs previous visit 12/21/24: Due to new ulcerative site on the plantar aspect of the foot she was prescribed oral antibiotic Augmentin 500 mg twice daily x 28 days (stop date 01/17/2025) 01/04/25 due to additional orgainism growth she was extended oral antibiotic of Augmentin for an additional 3 weeks (stop date 01/29/2025). Was also started on oral doxycycline 100 mg twice daily x 28 days (stop date 02/01/2025) Her continued Charcot arthropathy changes with edema was improving but with repeated events and new plantar ulceration healing will be slow. WBC from 08/10/2024 is 12.7, ESR 36, CRP 89.20. Radiographs from 08/10/2024 do d emonstrate increased osseous destruction with joint fragmentation about the Lisfranc joint and sclerosis consistent with Charcot arthropathy however osteomyelitis cannot be ruled out due to the dorsal foot wound and previous dental work. Will continue to monitor closely. She is understanding if she does develop signs and symptoms of infection which were discussed with her today she is to report to the ED for IV antibiotics as she would have failed outpatient oral antibiotic therapy. I did discuss the labs in detail with her today. She does report some improvement with the additional antibiotic. WBC from 08/28/2024 ED visit was 10.0 all other labs were within normal limits MRI had been approved at [facility] prior to visit to hospital, however while in ED that evening on 08/28/24 MRI was obtained demonstrating acute Charcot changes and soft tissue swelling. No signs of osteomyelitis. Will be permitted to continue protective weightbearing to the right lower extremity in CAM boot with stiffer Plastizote insole. Previously discussed modification to the boot should aid in increased stability to the plantar foot. We have briefly discussed all interventions for limb salvage however despite options we cannot rule out a Charcot event leading to instability. We have also discussed likelihood of lower extremity amputation secondary to continued Charcot events. Has completed all HBO dives. HgbA1c during hospital admission was 11.3% on 02/15/2024. Sugars have been well controlled following approval of insulin on new insurance. Current HgbA1c is 6.8% on 08/10/24. The following work up and care recommendations were made: Dressing: Dakin's wet-to-dry to dorsal ulceration site. She is to change daily. Iodoform packing gauze to the plantar aspect of the foot she is to also change daily. Dry sterile dressing applied to right foot. Wash: Soap and water Tissue growth optimization: Dakin's and iodoform packing gauze Offload: Protective weightbearing to the right lower extremity as n onweightbearing is not possible for her due to an operable herniated disc in the lumbar spine. Vascular: DP and PT pulses palpable with adequate capillary fill time. Vascular status not impacting healing at this time. Edema: Edema well-controlled. Will continue with Tubigrip stocking application Infection: No signs of infection. Pain: No pain to the ulcerative site secondary to diabetic peripheral polyneuropathy Host factors: DM type II with peripheral polyneuropathy, uncontrolled. Charcot foot right foot Her continued Charcot events is complicating her healing as swelling still persists in addition to unstable foot with continued osseous breakdown. Will continue to monitor for infection as she has had a history of this, but recent MRI excludes this favoring acute Charcot event. I answered all the patient's questions. To return to the wound healing center in 1 week or call sooner if the patient has any questions or concerns.
[2025-01-11 08:23] VITALS: BP 121/70; PULSE 79; RESP 18; TEMP 36.3
--- NOTE | 2025-01-11 09:51 | PCM.WC.PN ---
History of Present Illness Date of Service: 01/11/25 Chief Complaint: Diabetic right foot ulceration History of Wound: Ms. Falk is a 58-year-old currently being seen at the wound center for right foot/ankle ulcer. She has finished hyperbaric oxygen therapy for the diabetic foot ulceration involving her right foot. She has been under the care of Dr. Jason Lewis, [facility], relative to the management of her diabetic foot ulceration. Review of the patient's medical record indicates that she has tolerated HBOT well and there has been corresponding significant improvement in ulcer. 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 Blood glucose readings have been largely stable. No chest pain, tightness, blurry vision or concerns reported. Subjective Subjective This is a 59-year-old female who continues to follow with the wound care center for right dorsal foot ulceration. Reports continued improvement of dorsal ulceration with Dakin's and states plantar ulceration improving with iodoform packing. Continues oral antibiotics and states she does continue to feel better. Ambulating in CAM boot with modification to the boot. She continues to rest her foot as much as possible with continued immobilizing in CAM boot. She understands her Foot remains unstable due to continued Charcot events which is most likely why she opened new ulcer on plantar foot. Does admit to continued back pain with herniated disc which makes ambulation difficult. Denies constitutional symptoms. Denies further complaints. Objective Data Objective Data Vital Signs: Vital Signs Temp Pulse Resp BP O2 Del Method 97.4 F L 79 18 121/70 H Room Air 01/11/25 08:23 01/11/25 08:23 01/11/25 08:23 01/11/25 08:23 12/28/24 08:38 Oxygen Delivery Method Room Air Physical Exam Const alert, oriented x3 and no apparent distress General Appearance: cooperative HEENT normocephalic Eyes General Eye: normal appearance of both eyes Neck General: normal visual inspection Lymph Lymphatic: no lymphadenopathy noted and no lymphedema noted Resp normal respiratory effort Cardio regular rate and regular rhythm Extremity no calf tenderness Extremity Narrative: Right lower extremity: Vascular: DP and PT pulses palpable with adequate capillary fill time to the digits. Normal temperature gradient. Hair growth is absent to the digits. Neurologic: Gross sensation intact. Absent protective sensation consistent with diabetic peripheral polyneuropathy Musculoskeletal: No pain to palpation about the ulcerative site secondary to diabetic peripheral polyneuropathy. There is a Charcot foot deformity noted of the right foot. No pain to palpation about the ulcerative site. There is pain to palpation along the 5th and 4th metatarsals with plantar edema of the foot secondary to recent Charcot event with likely fracture of the metatarsal. Dermatologic: Incision site medial foot healed with cicatrix. No signs of infection. Incision site anterior leg with cicatrix proximally and distally. No signs of infection. There is a full thickness ulceration dorsally along the midfoot medial to the incision site with healthy granular tissue at the base with macerated tissue at the margin secondary to serous drainage. No purulent drainage from dorsal ulceration site. Plantar foot demonstrates full-thickness ulceration site with improving edema secondary to continued Charcot degenerative arthropathy progression. No purulence expressible from plantar foot. Skin no rashes or lesions noted Neuro moves all extremities Debridement Note Debridement Note Wound debrided: Right plantar foot Laterality: Right Wound Grade/Stage: Gonzalez stage II Type of Debridement: Excisional debridement Anesthesia Used: 5% Lidocaine Gel Depth: Down to and including healthy tissue, in the subcutaneous layer and to muscle Percentage of wound debrided: 100 Instrument Used: 5mm curette Tissue Removed: Fibrous, devitalized subcutaneous, biofilm, slough Severity: Fat Layer Exposed Amount of bleeding with debridement: Mild Bleeding Controlled with: Compression and gauze Patient tolerated procedure: Patient tolerated procedure well Post-Debridement Measurements and Additional Note: Post-Debridement Measurements/Treatment ALISSA - Nurse 1 - General Ulcer Assessment Start: 12/28/24 08:29 Freq: Status: Active Protocol: RUKHSANA Activity Type Activity Date Activity User E-sign Co-sign Detail Recorded Client Recorded Date Recorded By Document 12/28/24 08:38 KW [id number] 12/28/24 08:49 KW Document 01/04/25 08:33 DL [id number] 01/04/25 08:40 DL Document 01/11/25 08:23 DL [id number] 01/11/25 08:33 DL 12/28/24 01/04/25 01/11/25 08:38 08:33 08:23 ALISSA - Today's Visit Information Type of service Follow-up Visit Follow-up Visit Follow-up Visit (Physician/BOLT SAWYER (Physician/BOLT SAWYER (Physician/BOLT SAWYER ) ) ) Arrival Mode Ambulatory Ambulatory Ambulatory Transfer Assistance None None Patient Identification Verified (Name & Yes Yes Yes ) Patient Requires Transmission-Based No No Precautions Vital Signs Temperature (97.8 F-99.1 F) 96.7 F L 96.8 F L 97.4 F L Temperature Source Temporal Temporal Temporal Pulse Rate (60-100) 78 91 79 Pulse Location Monitor Monitor Monitor Respiratory Rate (12-18) 18 16 18 Respiratory rate source Observation Observation Observation Oxygen Delivery Method Room Air Blood Pressure (90/60-120/80) 136/71 H 116/83 H 121/70 H Blood Pressure Mean (mm Hg) 92 94 87 Source Monitor Monitor Monitor Position Semi-Fowlers Blood Pressure Location Left Arm History Since Last Visit- (Skip if this is Patient's initial visit) Have you changed medications since your No No last visit? Any new allergies or adverse reactions No No Had a fall/change in ADL's that may No No increase risk of falls Signs or symptoms of abuse and/or No No neglect since last visit Have you been in the hospital since your No No last visit? Has dressing in place as prescribed Yes Yes Has compression in place as prescribed N/A N/A Has offloadiing in place as prescribed Yes Yes Experienced any changes in pain level or No management Left Footwear Multipodus Splint/Boot Pain Scale: 0-10 Numeric Is Patient Pain Free? Yes Yes Yes WC - Nurse 1 - General Ulcer Measurement Start: 12/28/24 08:29 Freq: Status: Active Protocol: Activity Type Activity Date Activity User E-sign Co-sign Detail Recorded Client Recorded Date Recorded By Document 12/28/24 08:38 KW [id number] 12/28/24 08:49 KW Document 01/04/25 08:33 DL [id number] 01/04/25 08:40 DL Document 01/11/25 08:23 DL [id number] 01/11/25 08:33 DL 12/28/24 01/04/25 01/11/25 08:38 08:33 08:23 Wound Center Nurse 1 #7- R PLANTAR FOOT -Current Size (cm) - Length 1.2 0.5 0.5 -Current Size (cm) - Width 0.8 0.6 0.6 -Current Size (cm) - Depth 2 1.6 1.2 -Total Square Cm 0.96 0.30 0.30 -Date of Last Picture (Recall this 12/28/24 field) -Photo Taken Yes -Tunneling Yes -Tunneling Position (O'clock) 6 7 -Tunneling Distance (cm) 5 2.3 -Maximum Distance #2 (cm) 2.9 -Circular Undermining Yes -Exudate Amt Medium Small Medium -Exudate Type Serosanguineous Sanguineous Serosanguineous -Wound Margin Thickened Distinct, Distinct, Outline Outline Attached Attached -Granulation Amt Large (67-100%) Large (67-100%) Large (67-100%) -Granulation Quality Red [place] Red -Necrosis Amt None Present (0 None Present (0 %) %) -Necrotic Tissue Type Adherent Slough -Structure Exposed N/A N/A -Texture (Marie-wound Skin Appearance) Assessed,Callus Scarring Scarring ,Localized Edema -Moisture (Marie-wound Skin Appearance) Assessed Dry/Scaly Maceration -Color (Marie-wound Skin Appearance) Assessed No Abnormality No Abnormality -Temperature (Marie-wound Skin No Abnormality No Abnormality No Abnormality Appearance) (Pt Warm) (Pt Warm) (Pt Warm) -Tenderness on Palpation (Marie-wound No Skin Appearance) -Ulcer Cleansing Soap and Water Soap and Water Soap and Water -Foul Odor after Cleansing No No No -Anesthetic Used 5% Lidocaine 5% Lidocaine Gel Gel #5 RDorsal/Anterior Ankle -Current Size (cm) - Length 0.5 0.3 0.2 -Current Size (cm) - Width 1 0.2 0.2 -Current Size (cm) - Depth 0.1 0.1 0.2 -Total Square Cm 0.5 0.06 0.04 -Exudate Amt Medium None Present None Present -Exudate Type Serosanguineous -Wound Margin Distinct, Distinct, Thickened Outline Outline Attached Attached -Granulation Amt Large (67-100%) Large (67-100%) Large (67-100%) -Granulation Quality [place] -Necrosis Amt None Present (0 None Present (0 %) %) -Structure Exposed N/A N/A -Texture (Marie-wound Skin Appearance) Assessed Scarring Scarring -Moisture (Marie-wound Skin Appearance) Assessed Dry/Scaly Dry/Scaly -Color (Marie-wound Skin Appearance) Assessed No Abnormality No Abnormality -Temperature (Marie-wound Skin No Abnormality No Abnormality No Abnormality Appearance) (Pt Warm) (Pt Warm) (Pt Warm) -Tenderness on Palpation (Marie-wound No Skin Appearance) -Ulcer Cleansing Soap and Water Soap and Water Soap and Water -Foul Odor after Cleansing No No -Anesthetic Used 5% Lidocaine 4% Lidocaine Gel Solution WC - Nurse 2 - General Ulcer CM Notes Start: 12/28/24 08:29 Freq: Status: Active Protocol: Activity Type Activity Date Activity User E-sign Co-sign Detail Recorded Client Recorded Date Recorded By Document 12/28/24 09:22 DS [id number] 12/28/24 09:26 DS Document 01/04/25 09:27 BMF [id number] 01/04/25 09:37 BMF Document 01/11/25 09:08 BM [id number] 01/11/25 09:18 BMF 12/28/24 01/04/25 01/11/25 09:22 09:27 09:08 Wound Center Nurse 2 #7- R PLANTAR FOOT -Time 09:22 09:28 09:08 -Correct Patient Yes Yes Yes -Correct Side, Site, Position Yes Yes Yes -Correct Procedure Yes Yes Yes -Procedure Performed Yes Yes Yes -Type of Procedure Debridement Debridement Debridement -Clinical Debridement Subcutaneous Muscle / Fascia Muscle / Fascia -Tissue Removed Subcutaneous Muscle,Fascia Muscle,Fascia -Post Debridement (cm) - Length 0.5 0.5 0.5 -Post Debridement (cm) - Width 0.7 0.5 0.5 -Post Debridement (cm) - Depth 0.1 0.7 0.7 -Total Square (Post) (cm) 0.35 0.25 0.25 -Area of Debridement (cm) - Length 0.5 0.5 0.5 -Area of Debridement (cm) - Width 0.7 0.5 0.5 -Total Square (Area) (cm) 0.35 0.25 0.25 -Tunneling No Yes Yes -Tunneling Position (O'clock) 6 -Tunneling Distance (cm) 5 -Undermining/Tunneling No Yes -Undermining/Tunneling Starts (O'clock 5 ) -Undermining/Tunneling Ends (O'clock) 5 -Maximum Distance (cm) 2.9 -Circular Undermining No No -Wound/Ulcer Outcome Not Healed Not Healed Not Healed -Ulcer Cleansing Rinsed/ Rinsed/ Rinsed/ Irrigated with Irrigated with Irrigated with Saline Saline Saline -Foul Odor after Cleansing No No No -Bioengineered Tissue No No No -Bleeding Controlled with Pressure Pressure Pressure -Treatment Response Procedure Procedure Procedure Tolerated Well Tolerated Well Tolerated Well -Debridement - Subq, 1st 20sq cm Yes -Debridement - Muscle / Fascia, 1st Yes Yes 20sq cm #5 RDorsal/Anterior Ankle -Time 09:22 09:31 09:09 -Correct Patient Yes Yes Yes -Correct Side, Site, Position Yes Yes Yes -Correct Procedure Yes Yes Yes -Procedure Performed Yes Yes Yes -Type of Procedure Debridement Debridement Debridement -Clinical Debridement Muscle / Fascia Subcutaneous Subcutaneous -Tissue Removed Muscle Subcutaneous Subcutaneous -Post Debridement (cm) - Length 0.7 0.6 0.3 -Post Debridement (cm) - Width 1.0 0.6 0.3 -Post Debridement (cm) - Depth 0.9 0.1 0.1 -Total Square (Post) (cm) 0.70 0.36 0.09 -Area of Debridement (cm) - Length 0.7 0.6 0.3 -Area of Debridement (cm) - Width 0.9 0.6 0.3 -Total Square (Area) (cm) 0.63 0.36 0.09 -Tunneling Yes No No -Tunneling Position (O'clock) 6 -Tunneling Distance (cm) 5.5 -Undermining/Tunneling No No No -Circular Undermining No No No -Wound/Ulcer Outcome Not Healed Not Healed Not Healed -Ulcer Cleansing Rinsed/ Rinsed/ Rinsed/ Irrigated with Irrigated with Irrigated with Saline Saline Saline -Foul Odor after Cleansing No No -Bioengineered Tissue No No -Bleeding Controlled with Pressure Pressure Pressure -Treatment Response Procedure Procedure Tolerated Well Tolerated Well -Debridement - Subq, 1st 20sq cm Yes Yes -Debridement - Muscle / Fascia, 1st Yes 20sq cm Pain Scale: 0-10 Numeric Is Patient Pain Free? Yes Yes Yes WC - Nurse 3 - General Ulcer D/C NN Start: 12/28/24 08:29 Freq: Status: Active Protocol: Activity Type Activity Date Activity User E-sign Co-sign Detail Recorded Client Recorded Date Recorded By Document 12/28/24 09:42 DL [id number] 12/28/24 09:43 DL Document 01/04/25 09:54 MT [id number] 01/04/25 09:56 MT Document 01/11/25 09:32 DL [id number] 01/11/25 09:35 DL 12/28/24 01/04/25 01/11/25 09:42 09:54 09:32 Wound Care Center Nurse 3 #7- R PLANTAR FOOT -Ulcer Cleansing Soap and Water Rinsed/ Irrigated with Saline -Foul Odor after Cleansing No No No -Negative Pressure Wound Therapy N/A -Primary Dressing Applied Nugauze, Nugauze, Iodoform 1in Iodoform 1/4in -Other Dressing Iodoform dakins, abd x 2 Packing -Primary Dressing Covered/Secured with Dry Gauze & Dry Gauze,Dry Dry Gauze & Roll Gauze, Gauze & Roll Roll Gauze, Secured with Gauze Secured with Tape Tape -Other Covering ABD ABD -Nugauze, Iodoform 1/4 1 -Nugauze, Iodoform 1in 1 #5 RDorsal/Anterior Ankle -Ulcer Cleansing Wound Cleanser Rinsed/ Irrigated with Saline -Foul Odor after Cleansing No No -Other Dressing Dakins Dakins Gauze -Primary Dressing Covered/Secured with Dry Gauze & Dry Gauze & Roll Gauze, Roll Gauze, Secured with Secured with Tape Tape -Other Covering ABD/SEBASTIAN RLE -Compression Wrap Sebastian Wrap Sebastian Wrap Treatment Response Procedure Procedure Tolerated Well Tolerated Well Pain Scale: 0-10 Numeric Is Patient Pain Free? No Yes Yes WC - Visit Discharge Discharge Condition Stable Stable Stable Ambulatory Status Ambulatory Ambulatory Ambulatory Transportation Private Auto Private Auto Private Auto Medication Reconcilliation completed & No provided to patient/care provider Clinical Summary of Care Provided Yes Additional Wound Wound debrided: Right dorsal foot Laterality: Right Wound Grade/Stage: Gonzalez stage III Type of Debridement: Excisional debridement Anesthesia Used: 5% Lidocaine Gel Depth: Down to and including healthy tissue and in the subcutaneous layer Percentage of wound debrided: 100 Instrument Used: #15 blade Tissue Removed: Fibrous, devitalized subcutaneous, biofilm, slough Severity: Fat Layer Exposed Amount of bleeding with debridement: Mild Bleeding Controlled with: Compression and gauze Patient tolerated procedure: Patient tolerated procedure well Assessment/Plan Assessment/Plan (1) Non-pressure chronic ulcer of other part of right foot with fat layer exposed: CODE(S): L97.512 - Non-pressure chronic ulcer of other part of right foot with fat layer exposed (2) Non-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: CODE(S): L97.513 - Non-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 (3) Charcot's joint of right foot: CODE(S): M14.671 - Charcot's joint, right ankle and foot (4) Type 2 diabetes mellitus with diabetic polyneuropathy: CODE(S): E11.42 - Type 2 diabetes mellitus with diabetic polyneuropathy QUALIFIERS: Diabetes mellitus nursing home insulin use: with truck terminal manager use Qualified Code(s): E11.42 - Type 2 diabetes mellitus with diabetic polyneuropathy; Z79.4 - assisted (current) use of insulin (5) Type 2 diabetes mellitus with foot ulcer: CODE(S): E11.621 - Type 2 diabetes mellitus with foot ulcer; L97.509 - Non-pressure chronic ulcer of other part of unspecified foot with unspecified severity QUALIFIERS: Diabetes mellitus truck terminal manager insulin use: with truck terminal manager use Qualified Code(s): E11.621 - Type 2 diabetes mellitus with foot ulcer; L97.509 - Non-pressure chronic ulcer of other part of unspecified foot with unspecified severity; Z79.4 - assisted (current) use of insulin PLAN: Plan Patient seen and evaluated Cicatrix at incision sites medial foot and anterior leg with no signs of infection. Ulceration dorsal foot continues granulating in well versus her previous visit. She continues healing well at this time. Plantar foot ulceration secondary to edema due to cyclical Charcot events Ulceration predebridement: Dorsal foot : 0.2 cm x 0.2 cm x 0.1 cm Plantar Foot: 0.4 cm x 0.4 cm x 0.7 Postdebridement: Dorsal foot: 0.3 cm x 0.3 cm x 0.1 cm Plantar foot: 0.5 cm x 0.5 cm x 0.7 cm with 2.9 cm proximal tunnel plantarly. This has improved with iodoform packing Ulceration did undergo debridement as noted on clinical panel above. Has completed all 10 applications of EpiFix #10. Dakin's wet to dry to dorsal ulceration. She is to change dressing daily. This is aiding in decreasing wound size and thus we will continue with the current Dakin's. Plantar ulceration site packed with iodoform packing gauze. She will change dressing daily. Her area of ulceration to the plantar foot secondary to swelling from continued Charcot event. She continues cyclic events with continued breakdown of the midfoot. Her scant hyperkeratosis at the plantar foot was debrided no expressible purulence from site. Plantar ulceration site demonstrates no purulent drainage. However swab cultures were obtained 12/21/2024, awaiting results. I previously discussed with her that I feel she did experience continued progression of her new acute Charcot event most likely when she removed her boot to stand barefoot in the shower at the beginning of August. Discussed it appears she continues some breakdown at the lateral foot with another event in late September and a most recent one on 11/06/2024. Discussed her continued difficulty with Charcot arthropathy. Discussed continuing the CAM boot for immobilization and plantar support modification and continuing to stay off of her foot is much as possible until consolidation can continue to occur. Previously have discussed extending the immobilization with limited weight bearing until consolidation can occur and foot becomes more stable. She is understanding of this but this has been difficult. Ulcerations dorsal and plantar continue to demonstrate decrease in size vs previous visit 12/21/24: Due to new ulcerative site on the plantar aspect of the foot she was prescribed oral antibiotic Augmentin 500 mg twice daily x 28 days (stop date 01/17/2025) 01/04/25 due to additional orgainism growth she was extended oral antibiotic of Augmentin for an additional 3 weeks (stop date 01/29/2025). Was also started on oral doxycycline 100 mg twice daily x 28 days (stop date 02/01/2025). Reports continued improvement on oral antibiotics. Her continued Charcot arthropathy changes with edema was improving but with repeated events and new plantar ulceration healing will be slow. WBC from 08/10/2024 is 12.7, ESR 36, CRP 89.20. Radiographs from 08/10/2024 do demonstrate increased osseous destruction with joint fragmentation about the Lisfranc joint and sclerosis consistent with Charcot arthropathy however osteomyelitis cannot be ruled out due to the dorsal foot wound and previous dental work. Will continue to monitor closely. She is understanding if she does develop signs and symptoms of infection which were discussed with her today she is to report to the ED for IV antibiotics as she would have failed outpatient oral antibiotic therapy. I did discuss the labs in detail with her today. She does report some improvement with the additional antibiotic. WBC from 08/28/2024 ED visit was 10.0 all other labs were within normal limits MRI had been approved at [place] prior to visit to hospital, however while in ED that evening on 08/28/24 MRI was obtained demonstrating acute Charcot changes and soft tissue swelling. No signs of osteomyelitis. Will be permitted to continue protective weightbearing to the right lower extremity in CAM boot with stiffer Plastizote insole. Previously discussed modification to the boot should aid in increased stability to the plantar foot. We have briefly discussed all interventions for limb salvage however despite options we cannot rule out a Charcot event leading to instability. We have also discussed likelihood of lower extremity amputation secondary to continued Charcot events. Has completed all HBO dives. HgbA1c during hospital admission was 11.3% on 02/15/2024. Sugars have been well controlled following approval of insulin on new insurance. Current HgbA1c is 6.8% on 08/10/24. The following work up and care recommendations were made: Dressing: Dakin's wet-to-dry to dorsal ulceration site. She is to change daily. Iodoform packing gauze to the plantar aspect of the foot she is to also change daily. Dry sterile dressing applied to right foot. Wash: Soap and water Tissue growth optimization: Dakin's and iodoform packing gauze Offload: Protective weightbearing to the right lower extremity as nonweightbearing is not possible for her due to an operable herniated disc in the lumbar spine. Vascular: DP and PT pulses palpable with adequate capillary fill time. Vascular status not impacting healing at this time. Edema: Edema well-controlled. Will continue with Tubigrip stocking application Infection: No signs of infection. Pain: No pain to the ulcerative site secondary to diabetic peripheral polyneuropathy Host factors: DM type II with peripheral polyneuropathy, uncontrolled. Charcot foot right foot Her continued Charcot events is complicating her healing as swelling still persists in addition to unstable foot with continued osseous breakdown. Will continue to monitor for infection as she has had a history of this, but recent MRI excludes this favoring acute Charcot event. I answered all the patient's questions. To return to the wound healing center in 1 week or call sooner if the patient has any questions or concerns.
[2025-01-18 08:41] VITALS: BP 131/67; PULSE 77; RESP 16; TEMP 36.4
--- NOTE | 2025-01-18 08:49 | PCM.WC.PN ---
History of Present Illness Date of Service: 01/18/25 Chief Complaint: Diabetic right foot ulceration History of Wound: Ms. Falk is a 58-year-old currently being seen at the wound center for right foot/ankle ulcer. She has finished hyperbaric oxygen therapy for the diabetic foot ulceration involving her right foot. She has been under the care of Dr. Jason Lewis, [facility], relative to the management of her diabetic foot ulceration. Review of the patient's medical record indicates that she has tolerated HBOT well and there has been corresponding significant improvement in ulcer. 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 Blood glucose readings have been largely stable. No chest pain, tightness, blurry vision or concerns reported. Subjective Subjective This is a 59-year-old female who continues to follow with the wound care center for right dorsal foot ulceration. Reports continued improvement of dorsal ulceration with Dakin's and states plantar ulceration continues improvement with iodoform packing. Continues oral antibiotics and states overall feeling better. Ambulating in CAM boot with modification to the boot. She continues to rest her foot as much as possible with continued immobilization in CAM boot. She understands her Foot remains unstable due to continued Charcot events which is most likely why she opened new ulcer on plantar foot. Does admit to continued back pain with herniated disc which makes ambulation difficult. Denies constitutional symptoms. Denies further complaints. Objective Data Objective Data Vital Signs: Vital Signs Temp Pulse Resp BP O2 Del Method 97.4 F L 79 18 121/70 H Room Air 01/11/25 08:23 01/11/25 08:23 01/11/25 08:23 01/11/25 08:23 12/28/24 08:38 Oxygen Delivery Method Room Air Physical Exam Const alert, oriented x3 and no apparent distress General Appearance: cooperative HEENT normocephalic Eyes General Eye: normal appearance of both eyes Neck General: normal visual inspection Lymph Lymphatic: no lymphadenopathy noted and no lymphedema noted Resp normal respiratory effort Cardio regular rate and regular rhythm Extremity no calf tenderness Extremity Narrative: Right lower extremity: Vascular: DP and PT pulses palpable with adequate capillary fill time to the digits. Normal temperature gradient. Hair growth is absent to the digits. Neurologic: Gross sensation intact. Absent protective sensation consistent with diabetic peripheral polyneuropathy Musculoskeletal: No pain to palpation about the ulcerative site secondary to diabetic peripheral polyneuropathy. There is a Charcot foot deformity noted of the right foot. No pain to palpation about the ulcerative site. There is pain to palpation along the 5th and 4th metatarsals with plantar edema of the foot secondary to recent Charcot event with likely fracture of the metatarsal. Dermatologic: Incision site medial foot healed with cicatrix. No signs of infection. Incision site anterior leg with cicatrix proximally and distally. No signs of infection. There is a full thickness ulceration dorsally along the midfoot medial to the incision site with healthy granular tissue at the base with macerated tissue at the margin secondary to serous drainage. No purulent drainage from dorsal ulceration site. Plantar foot demonstrates full-thickness ulceration site with improving edema secondary to continued Charcot degenerative arthropathy progression. No purulence expressible from plantar foot. Skin no rashes or lesions noted Neuro moves all extremities Debridement Note Debridement Note Wound debrided: Dorsal right foot Laterality: Right Wound Grade/Stage: Gonzalez stage III Type of Debridement: Excisional debridement Anesthesia Used: 5% Lidocaine Gel Depth: Down to and including healthy tissue and in the subcutaneous layer Percentage of wound debrided: 100 Instrument Used: #15 blade Tissue Removed: Fibrous, devitalized subcutaneous, biofilm, slough Severity: Fat Layer Exposed Amount of bleeding with debridement: Mild Bleeding Controlled with: Compression and gauze Patient tolerated procedure: Patient tolerated procedure well Post-Debridement Measurements and Additional Note: Post-Debridement Measurements/Treatment - Nurse 1 - General Ulcer Assessment Start: 12/28/24 08:29 Freq: Status: Active Protocol: RUKHSANA Activity Type Activity Date Activity User E-sign Co-sign Detail Recorded Client Recorded Date Recorded By Document 12/28/24 08:38 KW [id number] 12/28/24 08:49 KW Document 01/04/25 08:33 DL [id number] 01/04/25 08:40 DL Document 01/11/25 08:23 DL [id number] 01/11/25 08:33 DL 12/28/24 01/04/25 01/11/25 08:38 08:33 08:23 - Today's Visit Information Type of service Follow-up Visit Follow-up Visit Follow-up Visit (Physician/DISPLAY CARVER (Physician/DISPLAY CARVER (Physician/DISPLAY CARVER ) ) ) Arrival Mode Ambulatory Ambulatory Ambulatory Transfer Assistance None None Patient Identification Verified (Name & Yes Yes Yes ) Patient Requires Transmission-Based No No Precautions Vital Signs Temperature (97.8 F-99.1 F) 96.7 F L 96.8 F L 97.4 F L Temperature Source Temporal Temporal Temporal Pulse Rate (60-100) 78 91 79 Pulse Location Monitor Monitor Monitor Respiratory Rate (12-18) 18 16 18 Respiratory rate source Observation Observation Observation Oxygen Delivery Method Room Air Blood Pressure (90/60-120/80) 136/71 H 116/83 H 121/70 H Blood Pressure Mean (mm Hg) 92 94 87 Source Monitor Monitor Monitor Position Semi-Fowlers Blood Pressure Location Left Arm History Since Last Visit- (Skip if this is Patient's initial visit) Have you changed medications since your No No last visit? Any new allergies or adverse reactions No No Had a fall/change in ADL's that may No No increase risk of falls Signs or symptoms of abuse and/or No No neglect since last visit Have you been in the hospital since your No No last visit? Has dressing in place as prescribed Yes Yes Has compression in place as prescribed N/A N/A Has offloadiing in place as prescribed Yes Yes Experienced any changes in pain level or No management Left Footwear Multipodus Splint/Boot Pain Scale: 0-10 Numeric Is Patient Pain Free? Yes Yes Yes - Nurse 1 - General Ulcer Measurement Start: 12/28/24 08:29 Freq: Status: Active Protocol: Activity Type Activity Date Activity User E-sign Co-sign Detail Recorded Client Recorded Date Recorded By Document 12/28/24 08:38 KW [id number] 12/28/24 08:49 KW Document 01/04/25 08:33 DL [id number] 01/04/25 08:40 DL Document 01/11/25 08:23 DL [id number] 01/11/25 08:33 DL 12/28/24 01/04/25 01/11/25 08:38 08:33 08:23 Wound Center Nurse 1 #7- R PLANTAR FOOT -Current Size (cm) - Length 1.2 0.5 0.5 -Current Size (cm) - Width 0.8 0.6 0.6 -Current Size (cm) - Depth 2 1.6 1.2 -Total Square Cm 0.96 0.30 0.30 -Date of Last Picture (Recall this 12/28/24 field) -Photo Taken Yes -Tunneling Yes -Tunneling Position (O'clock) 6 7 -Tunneling Distance (cm) 5 2.3 -Maximum Distance #2 (cm) 2.9 -Circular Undermining Yes -Exudate Amt Medium Small Medium -Exudate Type Serosanguineous Sanguineous Serosanguineous -Wound Margin Thickened Distinct, Distinct, Outline Outline Attached Attached -Granulation Amt Large (67-100%) Large (67-100%) Large (67-100%) -Granulation Quality [place] Red -Necrosis Amt None Present (0 None Present (0 %) %) -Necrotic Tissue Type Adherent Slough -Structure Exposed N/A N/A -Texture (Marie-wound Skin Appearance) Assessed,Callus Scarring Scarring ,Localized Edema -Moisture (Marie-wound Skin Appearance) Assessed Dry/Scaly Maceration -Color (Marie-wound Skin Appearance) Assessed No Abnormality No Abnormality -Temperature (Marie-wound Skin No Abnormality No Abnormality No Abnormality Appearance) (Pt Warm) (Pt Warm) (Pt Warm) -Tenderness on Palpation (Marie-wound No Skin Appearance) -Ulcer Cleansing Soap and Water Soap and Water Soap and Water -Foul Odor after Cleansing No No No -Anesthetic Used 5% Lidocaine 5% Lidocaine Gel Gel #5 RDorsal/Anterior Ankle -Current Size (cm) - Length 0.5 0.3 0.2 -Current Size (cm) - Width 1 0.2 0.2 -Current Size (cm) - Depth 0.1 0.1 0.2 -Total Square Cm 0.5 0.06 0.04 -Exudate Amt Medium None Present None Present -Exudate Type Serosanguineous -Wound Margin Distinct, Distinct, Thickened Outline Outline Attached Attached -Granulation Amt Large (67-100%) Large (67-100%) Large (67-100%) -Granulation Quality [employer] [place] -Necrosis Amt None Present (0 None Present (0 %) %) -Structure Exposed N/A N/A -Texture (Marie-wound Skin Appearance) Assessed Scarring Scarring -Moisture (Marie-wound Skin Appearance) Assessed Dry/Scaly Dry/Scaly -Color (Marie-wound Skin Appearance) Assessed No Abnormality No Abnormality -Temperature (Marie-wound Skin No Abnormality No Abnormality No Abnormality Appearance) (Pt Warm) (Pt Warm) (Pt Warm) -Tenderness on Palpation (Marie-wound No Skin Appearance) -Ulcer Cleansing Soap and Water Soap and Water Soap and Water -Foul Odor after Cleansing No No -Anesthetic Used 5% Lidocaine 4% Lidocaine Gel Solution WC - Nurse 2 - General Ulcer CM Notes Start: 12/28/24 08:29 Freq: Status: Active Protocol: Activity Type Activity Date Activity User E-sign Co-sign Detail Recorded Client Recorded Date Recorded By Document 12/28/24 09:22 DS [id number] 12/28/24 09:26 DS Document 01/04/25 09:27 BM [id number] 01/04/25 09:37 BM Document 01/11/25 09:[address] [facility] [id number] 01/11/25 09:18 BMF 12/28/24 01/04/25 01/11/25 09:22 09:27 09:08 Wound Center Nurse 2 #7- R PLANTAR FOOT -Time 09:22 09:28 09:08 -Correct Patient Yes Yes Yes -Correct Side, Site, Position Yes Yes Yes -Correct Procedure Yes Yes Yes -Procedure Performed Yes Yes Yes -Type of Procedure Debridement Debridement Debridement -Clinical Debridement Subcutaneous Muscle / Fascia Muscle / Fascia -Tissue Removed Subcutaneous Muscle,Fascia Muscle,Fascia -Post Debridement (cm) - Length 0.5 0.5 0.5 -Post Debridement (cm) - Width 0.7 0.5 0.5 -Post Debridement (cm) - Depth 0.1 0.7 0.7 -Total Square (Post) (cm) 0.35 0.25 0.25 -Area of Debridement (cm) - Length 0.5 0.5 0.5 -Area of Debridement (cm) - Width 0.7 0.5 0.5 -Total Square (Area) (cm) 0.35 0.25 0.25 -Tunneling No Yes Yes -Tunneling Position (O'clock) 6 -Tunneling Distance (cm) 5 -Undermining/Tunneling No Yes -Undermining/Tunneling Starts (O'clock 5 ) -Undermining/Tunneling Ends (O'clock) 5 -Maximum Distance (cm) 2.9 -Circular Undermining No No -Wound/Ulcer Outcome Not Healed Not Healed Not Healed -Ulcer Cleansing Rinsed/ Rinsed/ Rinsed/ Irrigated with Irrigated with Irrigated with Saline Saline Saline -Foul Odor after Cleansing No No No -Bioengineered Tissue No No No -Bleeding Controlled with Pressure Pressure Pressure -Treatment Response Procedure Procedure Procedure Tolerated Well Tolerated Well Tolerated Well -Debridement - Subq, 1st 20sq cm Yes -Debridement - Muscle / Fascia, 1st Yes Yes 20sq cm #5 RDorsal/Anterior Ankle -Time 09:22 09:31 09:09 -Correct Patient Yes Yes Yes -Correct Side, Site, Position Yes Yes Yes -Correct Procedure Yes Yes Yes -Procedure Performed Yes Yes Yes -Type of Procedure Debridement Debridement Debridement -Clinical Debridement Muscle / Fascia Subcutaneous Subcutaneous -Tissue Removed Muscle Subcutaneous Subcutaneous -Post Debridement (cm) - Length 0.7 0.6 0.3 -Post Debridement (cm) - Width 1.0 0.6 0.3 -Post Debridement (cm) - Depth 0.9 0.1 0.1 -Total Square (Post) (cm) 0.70 0.36 0.09 -Area of Debridement (cm) - Length 0.7 0.6 0.3 -Area of Debridement (cm) - Width 0.9 0.6 0.3 -Total Square (Area) (cm) 0.63 0.36 0.09 -Tunneling Yes No No -Tunneling Position (O'clock) 6 -Tunneling Distance (cm) 5.5 -Undermining/Tunneling No No No -Circular Undermining No No No -Wound/Ulcer Outcome Not Healed Not Healed Not Healed -Ulcer Cleansing Rinsed/ Rinsed/ Rinsed/ Irrigated with Irrigated with Irrigated with Saline Saline Saline -Foul Odor after Cleansing No No -Bioengineered Tissue No No -Bleeding Controlled with Pressure Pressure Pressure -Treatment Response Procedure Procedure Tolerated Well Tolerated Well -Debridement - Subq, 1st 20sq cm Yes Yes -Debridement - Muscle / Fascia, 1st Yes 20sq cm Pain Scale: 0-10 Numeric Is Patient Pain Free? Yes Yes Yes WC - Nurse 3 - General Ulcer D/C NN Start: 12/28/24 08:29 Freq: Status: Active Protocol: Activity Type Activity Date Activity User E-sign Co-sign Detail Recorded Client Recorded Date Recorded By Document 12/28/24 09:42 DL [id number] 12/28/24 09:43 DL Document 01/04/25 09:54 MT [id number] 01/04/25 09:56 MT Document 01/11/25 09:32 DL [id number] 01/11/25 09:35 DL 12/28/24 01/04/25 01/11/25 09:42 09:54 09:32 Wound Care Center Nurse 3 #7- R PLANTAR FOOT -Ulcer Cleansing Soap and Water Rinsed/ Irrigated with Saline -Foul Odor after Cleansing No No No -Negative Pressure Wound Therapy N/A -Primary Dressing Applied Nugauze, Nugauze, Iodoform 1in Iodoform 1/4in -Other Dressing Iodoform dakins, abd x 2 Packing -Primary Dressing Covered/Secured with Dry Gauze & Dry Gauze,Dry Dry Gauze & Roll Gauze, Gauze & Roll Roll Gauze, Secured with Gauze Secured with Tape Tape -Other Covering ABD ABD -Nugauze, Iodoform 1/4 1 -Nugauze, Iodoform 1in 1 #5 RDorsal/Anterior Ankle -Ulcer Cleansing Wound Cleanser Rinsed/ Irrigated with Saline -Foul Odor after Cleansing No No -Other Dressing Dakins Dakins Gauze -Primary Dressing Covered/Secured with Dry Gauze & Dry Gauze & Roll Gauze, Roll Gauze, Secured with Secured with Tape Tape -Other Covering ABD/SEBASTIAN RLE -Compression Wrap Sebastian Wrap Sebastian Wrap Treatment Response Procedure Procedure Tolerated Well Tolerated Well Pain Scale: 0-10 Numeric Is Patient Pain Free? No Yes Yes WC - Visit Discharge Discharge Condition Stable Stable Stable Ambulatory Status Ambulatory Ambulatory Ambulatory Transportation Private Auto Private Auto Private Auto Medication Reconcilliation completed & No provided to patient/care provider Clinical Summary of Care Provided Yes Additional Wound Wound debrided: Plantar right foot Laterality: Right Wound Grade/Stage: Gonzalez stage II Type of Debridement: Excisional debridement Anesthesia Used: 5% Lidocaine Gel Depth: Down to and including healthy tissue, in the subcutaneous layer and to muscle Percentage of wound debrided: 100 Instrument Used: 3mm curette Tissue Removed: Fibrous, devitalized subcutaneous, biofilm, slough Severity: Fat Layer Exposed Amount of bleeding with debridement: Mild Bleeding Controlled with: Compression and gauze Patient tolerated procedure: Patient tolerated procedure well Assessment/Plan Assessment/Plan (1) Non-pressure chronic ulcer of other part of right foot with fat layer exposed: CODE(S): L97.512 - Non-pressure chronic ulcer of other part of right foot with fat layer exposed (2) Non-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: CODE(S): L97.513 - Non-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 (3) Charcot's joint of right foot: CODE(S): M14.671 - Charcot's joint, right ankle and foot (4) Type 2 diabetes mellitus with diabetic polyneuropathy: CODE(S): E11.42 - Type 2 diabetes mellitus with diabetic polyneuropathy QUALIFIERS: Diabetes mellitus custodial insulin use: with long 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 use Qualified Code(s): E11.42 - Type 2 diabetes mellitus with diabetic polyneuropathy; Z79.4 - nursing home (current) use of insulin (5) Type 2 diabetes mellitus with foot ulcer: CODE(S): E11.621 - Type 2 diabetes mellitus with foot ulcer; L97.509 - Non-pressure chronic ulcer of other part of unspecified foot with unspecified severity QUALIFIERS: Diabetes mellitus long chain 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 insulin use: with custodial use Qualified Code(s): E11.621 - Type 2 diabetes mellitus with foot ulcer; L97.509 - Non-pressure chronic ulcer of other part of unspecified foot with unspecified severity; Z79.4 - nursing home (current) use of insulin PLAN: Plan Patient seen and evaluated Cicatrix at incision sites medial foot and anterior leg with no signs of infection. Ulceration dorsal foot continues granulating in well versus her previous visit. She continues healing well at this time. Plantar foot ulceration secondary to edema due to cyclical Charcot events Ulceration predebridement: Dorsal foot : 0.1 cm x 0.1 cm x 0.1 cm Plantar Foot: 0.4 cm x 0.4 cm x 0.7 Postdebridement: Dorsal foot: 0.1 cm x 0.1 cm x 0.1 cm Plantar foot: 0.5 cm x 0.5 cm x 0.7 cm with 1.9 cm proximal tunnel plantarly. This has continued to improve with iodoform packing Ulceration did undergo debridement as noted on clinical panel above. Has completed all 10 applications of EpiFix #10. Pad and protection to dorsal ulceration. She is to change dressing daily. Plantar ulceration site packed with iodoform packing gauze. She will change dressing daily. Her area of ulceration to the plantar foot secondary to swelling from continued Charcot event. She continues cyclic events with continued breakdown of the midfoot. Her scant hyperkeratosis at the plantar foot was debrided no expressible purulence from site. Plantar ulceration site demonstrates no purulent drainage. However swab cultures were obtained 12/21/2024, awaiting results. I previously discussed with her that I feel she did experience continued progression of her new acute Charcot event most likely when she removed her boot to stand barefoot in the shower at the beginning of August. Discussed it appears she continues some breakdown at the lateral foot with another event in late September and a most recent one on 11/06/2024. Discussed her continued difficulty with Charcot arthropathy. Discussed continuing the CAM boot for immobilization and plantar support modification and continuing to stay off of her foot is much as possible until consolidation can continue to occur. Previously have discussed extending the immobilization with limited weight bearing until consolidation can occur and foot becomes more stable. She is understanding of this but this has been difficult. Ulcerations dorsal and plantar continue to demonstrate decrease in size vs previous visit. Dorsal ulceration nearly healed 12/21/24: Due to new ulcerative site on the plantar aspect of the foot she was prescribed oral antibiotic Augmentin 500 mg twice daily x 28 days (stop date 01/17/2025) 01/04/25 due to additional orgainism growth she was extended oral antibiotic of Augmentin for an additional 3 weeks (stop date 01/29/2025). Was also started on oral doxycycline 100 mg twice daily x 28 days (stop date 02/01/2025). Reports continued improvement on oral antibiotics. Her continued Charcot arthropathy changes with edema was improving but with repeated events and new plantar ulceration healing will be slow. WBC from 08/10/2024 is 12.7, ESR 36, CRP 89.20. Radiographs from 08/10/2024 do demonstrate increased osseous destruction with joint fragmentation about the Lisfranc joint and sclerosis consistent with Charcot arthropathy however osteomyelitis cannot be ruled out due to the dorsal foot wound and previous dental work. Will continue to monitor closely. She is understanding if she does develop signs and symptoms of infection which were discussed with her today she is to report to the ED for IV antibiotics as she would have failed outpatient oral antibiotic therapy. I did discuss the labs in detail with her today. She does report some improvement with the additional antibiotic. WBC from 08/28/2024 ED visit was 10.0 all other labs were within normal limits MRI had been approved at [facility] prior to visit to hospital, however while in ED that evening on 08/28/24 MRI was obtained demonstrating acute Charcot changes and soft tissue swelling. No signs of osteomyelitis. Will be permitted to continue protective weightbearing to the right lower extremity in CAM boot with stiffer Plastizote insole. Previously discussed modification to the boot should aid in increased stability to the plantar foot. We have briefly discussed all interventions for limb salvage however despite options we cannot rule out a Charcot event leading to instability. We have also discussed likelihood of lower extremity amputation secondary to continued Charcot events. Has completed all HBO dives. HgbA1c during hospital admission was 11.3% on 02/15/2024. Sugars have been well controlled following approval of insulin on new insurance. Current HgbA1c is 6.8% on 08/10/24. The following work up and care recommendations were made: Dressing: Pad and protect to dorsal ulceration site. She is to change daily. Iodoform packing gauze to the plantar aspect of the foot she is to also change daily. Dry sterile dressing applied to right foot. Wash: Soap and water Tissue growth optimization: iodoform packing gauze Offload: Protective weightbearing to the right lower extremity as nonweightbearing is not possible for her due to an operable herniated disc in the lumbar spine. Vascular: DP and PT pulses palpable with adequate capillary fill time. Vascular status not impacting healing at this time. Edema: Edema well-controlled. Will continue with Tubigrip stocking application Infection: No signs of infection. Pain: No pain to the ulcerative site secondary to diabetic peripheral polyneuropathy Host factors: DM type II with peripheral polyneuropathy, uncontrolled. Charcot foot right foot Her continued Charcot events is complicating her healing as swelling still persists in addition to unstable foot with continued osseous breakdown. Will continue to monitor for infection as she has had a history of this, but recent MRI excludes this favoring acute Charcot event. I answered all the patient's questions. To return to the wound healing center in 1 week or call sooner if the patient has any questions or concerns.
--- NOTE | 2025-01-19 08:39 | WC ---
PHOTO-RIGHT DORSAL 01/18/25
--- NOTE | 2025-01-19 08:43 | WC ---
PHOTO-RIGHT PLANTAR 01/18/25
== END 2025-01-21 23:59 | disposition home or self-care (01) ==
LOC: WC 08:30
PROVIDERS: PCP Family Medicine; Referring Provider Student in an Organized Health Care Education/Training Program; Visit Provider Student in an Organized Health Care Education/Training Program
DX: E11.621 Type 2 diabetes mellitus with foot ulcer (principal); L97.412 Non-pressure chronic ulcer of right heel and midfoot with fat layer exposed; L97.512 Non-pressure chronic 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; Z79.4 Long term (current) use of insulin; E11.42 Type 2 diabetes mellitus with diabetic polyneuropathy; E11.610 Type 2 diabetes mellitus with diabetic neuropathic arthropathy; M54.9 Dorsalgia, unspecified; Z79.2 Long term (current) use of antibiotics; Z79.890 Hormone replacement therapy; Z79.899 Other long term (current) drug therapy
CPT/HCPCS: 11042; 11043

== ENCOUNTER 2025-02-15 09:15 | Outpatient (RCR) | payer MEDICAID, SELFPAY ==
[2025-01-25 09:16] VITALS: BP 119/76; PULSE 102; RESP 16; TEMP 36.2
--- NOTE | 2025-01-25 10:26 | WC ---
PHOTO- RIGHT PLANTAR 01/25/25
--- NOTE | 2025-01-25 10:27 | WC ---
PHOTO- RIGHT DORSAL HEALED 01/25/25
--- NOTE | 2025-01-25 13:27 | PN.PCM_ITS ---
History of Present Illness Date of Service: 01/25/25 Chief Complaint: Diabetic right foot ulceration History of Wound: Ms. Falk is a 58-year-old currently being seen at the wound center for right foot/ankle ulcer. She has finished hyperbaric oxygen therapy for the diabetic foot ulceration involving her right foot. She has been under the care of Dr. Jason Lewis, Nail Technician, relative to the management of her diabetic foot ulceration. Review of the patient's medical record indicates that she has tolerated HBOT well and there has been corresponding significant improvement in ulcer. 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 Blood glucose readings have been largely stable. No chest pain, tightness, blurry vision or concerns reported. Subjective Subjective This is a 59-year-old female who continues to follow with the wound care center for right dorsal foot ulceration. Reports continued improvement of dorsal ulceration with Dakin's and states plantar ulceration continues improvement with iodoform packing. Reports ulcer is decreasing in size. Continues oral antibiotics and states overall feeling well. Ambulating in CAM boot with modification to the boot. She continues to rest her foot as much as possible with continued immobilization in CAM boot. She understands her Foot remains unstable due to continued Charcot events which is most likely why she opened new ulcer on plantar foot. Does admit to continued back pain with herniated disc which makes ambulation difficult. Denies constitutional symptoms. Denies fur ther complaints. Objective Data Objective Data Vital Signs: Vital Signs Temp Pulse Resp BP 97.2 F L 102 H 16 119/76 01/25/25 09:16 01/25/25 09:16 01/25/25 09:16 01/25/25 09:16 Physical Exam Const alert, oriented x3 and no apparent distress General Appearance: cooperative HEENT normocephalic Eyes General Eye: normal appearance of both eyes Neck General: normal visual inspection Lymph Lymphatic: no lymphadenopathy noted and no lymphedema noted Resp normal respiratory effort and normal air movement Cardio regular rate and regular rhythm Extremity no calf tenderness Extremity Narrative: Right lower extremity: Vascular: DP and PT pulses palpable with adequate capillary fill time to the digits. Normal temperature gradient. Hair growth is absent to the digits. Neurologic: Gross sensation intact. Absent protective sensation consistent with diabetic peripheral polyneuropathy Musculoskeletal: No pain to palpation about the ulcerative site secondary to diabetic peripheral polyneuropathy. There is a Charcot foot deformity noted of the right foot. No pain to palpation about the ulcerative site. There is pain to palpation along the 5th and 4th metatarsals with plantar edema of the foot secondary to recent Charcot event with likely fracture of the metatarsal. Dermatologic: Incision site medial foot healed with cicatrix. No signs of infection. Incision site anterior leg with cicatrix proximally and distally. No signs of infection. There is a full thickness ulceration dorsally along the midfoot medial to the incision site with healthy granular tissue at the base with slight serous drainage. No purulent drainage from dorsal ulceration site. Plantar foot demonstrates full-thickness ulceration site with improving edema secondary to continued Charcot degenerative arthropathy progression. No purulence expressible from plantar foot. Skin no rashes or lesions noted Neuro moves all extremities Debridement Note Debridement Note Wound debrided: Right plantar foot Laterality: Right Wound Grade/Stage: Gonzalez stage II Type of Debridement: Excisional debridement Anesthesia Used: 5% Lidocaine Gel Depth: Down to and including healthy tissue, in the subcutaneous layer and to muscle Percentage of wound debrided: 100 Instrument Used: - (1 mm curette) Tissue Removed: Fibrous, devitalized subcutaneous, biofilm, slough Severity: Fat Layer Exposed Amount of bleeding with debridement: Mild Bleeding Controlled with: Compression and gauze Patient tolerated procedure: Patient tolerated procedure well Post-Debridement Measurements and Additional Note: Post-Debridement Measurements/Treatment - Nurse 1 - General Ulcer Assessment Start: 01/25/25 09:16 Freq: Status: Active Protocol: [email or web address] Activity Type Activity Date Activity User E-sign Co-sign Detail Recorded Client Recorded Date Recorded By Document 01/25/25 09:16 JENIFFER [id number] 01/25/25 09:29 DL 01/25/25 09:16 - Today's Visit Information Type of service Follow-up Visit (Physician/MONEY MANAGER ) Arrival Mode Ambulatory Transfer Assistance None Patient Identification Verified (Name & Yes ) Patient Requires Transmission-Based No Precautions Vital Signs Temperature (97.8 F-99.1 F) 97.2 F L Temperature Source Temporal Pulse Rate (60-100) 102 H Pulse Location Monitor Respiratory Rate (12-18) 16 Respiratory rate source Observation Blood Pressure (90/60-120/80) 119/76 Blood Pressure Mean (mm Hg) 90 Source Monitor History Since Last Visit- (Skip if this is Patient's initial visit) Have you changed medications since your No last visit? Any new allergies or adverse reactions No Had a fall/change in ADL's that may No increase risk of falls Signs or symptoms of abuse and/or No neglect since last visit Have you been in the hospital since your Yes last visit? Has dressing in place as prescribed Yes Has compression in place as prescribed Yes Has offloadiing in place as prescribed Yes Experienced any changes in pain level or No management Pain Scale: 0-10 Numeric Is Patient Pain Free? Yes WC - Nurse 1 - General Ulcer Measurement Start: 01/25/25 09:16 Freq: Status: Active Protocol: Activity Type Activity Date Activity User E-sign Co-sign Detail Recorded Client Recorded Date Recorded By Document 01/25/25 09:16 DL [id number] 01/25/25 09:29 DL 01/25/25 09:16 Wound Center Nurse 1 #7- R PLANTAR FOOT -Current Size (cm) - Length 0.5 -Current Size (cm) - Width 0.5 -Current Size (cm) - Depth 0.9 -Total Square Cm 0.25 -Photo Taken Yes -Maximum Distance #2 (cm) 1.3 -Circular Undermining Yes -Exudate Amt Medium -Exudate Type Serosanguineous -Wound Margin Distinct, Outline Attached -Granulation Amt Small (1-33%) -Granulation Quality Red -Necrosis Amt None Present (0 %) -Structure Exposed N/A -Texture (Marie-wound Skin Appearance) Localized Edema ,Scarring -Moisture (Marie-wound Skin Appearance) Maceration -Color (Marie-wound Skin Appearance) No Abnormality -Temperature (Marie-wound Skin No Abnormality Appearance) (Pt Warm) -Tenderness on Palpation (Amrie-wound No Skin Appearance) -Ulcer Cleansing Soap and Water -Foul Odor after Cleansing No -Anesthetic Used 5% Lidocaine Gel #5 RDorsal/Anterior Ankle -Current Size (cm) - Length 0.1 -Current Size (cm) - Width 0.1 -Current Size (cm) - Depth 0.1 -Total Square Cm 0.01 -Photo Taken Yes -Exudate Amt None Present -Wound Margin Thickened -Granulation Amt Large (67-100%) -Granulation Quality Pale -Necrosis Amt Small (1-33%) -Necrotic Tissue Type Adherent Slough -Structure Exposed N/A -Texture (Marie-wound Skin Appearance) Scarring -Moisture (Marie-wound Skin Appearance) Dry/Scaly -Color (Marie-wound Skin Appearance) No Abnormality -Temperature (Marie-wound Skin No Abnormality Appearance) (Pt Warm) -Tenderness on Palpation (Marie-wound No Skin Appearance) -Ulcer Cleansing Soap and Water -Foul Odor after Cleansing No -Anesthetic Used 5% Lidocaine Gel WC - Nurse 2 - General Ulcer CM Notes Start: 01/25/25 09:16 Freq: Status: Active Protocol: Activity Type Activity Date Activity User E-sign Co-sign Detail Recorded Client Recorded Date Recorded By Document 01/25/25 09:48 BMF [id number] 01/25/25 09:57 BMF Edit Result 01/25/25 09:48 BMF (1) [id number] 01/25/25 09:58 BMF (1) #5 RDorsal/Anterior Ankle - Post Debridement (cm) - Length 0 => 0.1 - Post Debridement (cm) - Width 0 => 0.1 - Post Debridement (cm) - Depth 0 => 0.1 - Total Square (Post) (cm) 0 => 0.01 - Area of Debridement (cm) - Length 0 => 0.1 - Area of Debridement (cm) - Width 0 => 0.1 - Total Square (Area) (cm) 0 => 0.01 - Wound/Ulcer Outcome Healed- => Not Healed Epithelialized => - Bleeding Controlled with => NA 01/25/25 09:48 Wound Center Nurse 2 #7- R PLANTAR FOOT -Time 09:48 -Correct Patient Yes -Correct Side, Site, Position Yes -Correct Procedure Yes -Procedure Performed Yes -Type of Procedure Debridement -Clinical Debridement Muscle / Fascia -Tissue Removed Muscle,Fascia -Post Debridement (cm) - Length 0.4 -Post Debridement (cm) - Width 0.4 -Post Debridement (cm) - Depth 0.5 -Total Square (Post) (cm) 0.16 -Area of Debridement (cm) - Length 0.4 -Area of Debridement (cm) - Width 0.4 -Total Square (Area) (cm) 0.16 -Tunneling Yes -Tunneling Position (O'clock) 5 -Tunneling Distance (cm) 1.5 -Undermining/Tunneling No -Circular Undermining No -Wound/Ulcer Outcome Not Healed -Ulcer Cleansing Rinsed/ Irrigated with Saline -Foul Odor after Cleansing No -Bioengineered Tissue No -Bleeding Controlled with Pressure -Treatment Response Procedure Tolerated Well -Debridement - Muscle / Fascia, 1st Yes 20sq cm #5 RDorsal/Anterior Ankle -Time 09:50 -Procedure Performed No -Post Debridement (cm) - Length 0.1 -Post Debridement (cm) - Width 0.1 -Post Debridement (cm) - Depth 0.1 -Total Square (Post) (cm) 0.01 -Area of Debridement (cm) - Length 0.1 -Area of Debridement (cm) - Width 0.1 -Total Square (Area) (cm) 0.01 -Wound/Ulcer Outcome Not Healed -Bleeding Controlled with NA Pain Scale: 0-10 Numeric Is Patient Pain Free? Yes WC - Nurse 3 - General Ulcer D/C NN Start: 01/25/25 09:16 Freq: Status: Active Protocol: Activity Type Activity Date Activity User E-sign Co-sign Detail Recorded Client Recorded Date Recorded By Document 01/25/25 10:17 ML [id number] 01/25/25 10:18 ML 01/25/25 10:17 Wound Care Center Nurse 3 #7- R PLANTAR FOOT -Ulcer Cleansing Rinsed/ Irrigated with Saline -Primary Dressing Applied Nugauze, Iodoform 1in -Primary Dressing Covered/Secured with Dry Gauze & Roll Gauze, Secured with Tape -Nugauze, Iodoform 1in 1 #5 RDorsal/Anterior Ankle -Primary Dressing Applied Silicone Border Foam 4x4 -Other Dressing pad and protect -Silicone Border Foam 4x4 1 Pain Scale: 0-10 Numeric Is Patient Pain Free? Yes Assessment/Plan Assessment/Plan (1) Non-pressure chronic ulcer of other part of right foot with fat layer exposed: CODE(S): L97.512 - Non-pressure chronic ulcer of other part of right foot with fat layer exposed (2) Non-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: CODE(S): L97.513 - Non-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 (3) Charcot's joint of right foot: CODE(S): M14.671 - Charcot's joint, right ankle and foot (4) Type 2 diabetes mellitus with diabetic polyneuropathy: CODE(S): E11.42 - Type 2 diabetes mellitus with diabetic polyneuropathy QUALIFIERS: Diabetes mellitus rat exterminator insulin use: with rat exterminator use Qualified Code(s): E11.42 - Type 2 diabetes mellitus with diabetic polyneuropathy; Z79.4 - shelter (current) use of insulin (5) Type 2 diabetes mellitus with foot ulcer: CODE(S): E11.621 - Type 2 diabetes mellitus with foot ulcer; L97.509 - Non-pressure chronic ulcer of other part of unspecified foot with unspecified severity QUALIFIERS: Diabetes mellitus rat exterminator insulin use: with rat exterminator use Qualified Code(s): E11.621 - Type 2 diabetes mellitus with foot ulcer; L97.509 - Non-pressure chronic ulcer of other part of unspecified foot with unspecified severity; Z79.4 - shelter (current) use of insulin PLAN: Plan Patient seen and evaluated Cicatrix at incision sites medial foot and anterior leg with no signs of infection. Ulceration dorsal foot continues granulating in well versus her previous visit. She continues healing well at this time. Plantar foot ulceration secondary to edema due to cyclical Charcot events Ulceration predebridement: Dorsal foot : 0.1 cm x 0.1 cm x 0.1 cm Plantar Foot: 0.3 cm x 0.3 cm x 0.5 Postdebridement: Dorsal foot: 0.1 cm x 0.1 cm x 0.1 cm Plantar foot: 0.4 cm x 0.4 cm x 0.5 cm with 1.5 cm proximal tunnel plantarly. This has continued to improve with iodoform packing Ulceration did undergo debridement as noted on clinical panel above. Has completed all 10 applications of EpiFix #10. Pad and protection to dorsal ulceration with [place] SAP dressing. She is to change dressing daily. Plantar ulceration site packed with iodoform packing gauze. She will change dressing daily. Her area of ulceration to the plantar foot secondary to swelling from continued Charcot event. She continues cyclic events with continued breakdown of the midfoot. Her scant hyperkeratosis at the plantar foot was debrided no expressible purulence from site. Plantar ulceration site demonstrates no purulent drainage. However swab cultures were obtained 12/21/2024, awaiting results. I previously discussed with her that I feel she did experience continued progression of her new acute Charcot event most likely when she removed her boot to stand barefoot in the shower at the beginning of August. Discussed it appears she continues some breakdown at the lateral foot with another event in late September and a most recent one on 11/06/2024. Discussed her continued difficulty with Charcot arthropathy. Discussed continuing the CAM boot for immobilization and plantar support modification and continuing to stay off of her foot is much as possible until consolidation can continue to occur. Previously have discussed extending the immobilization with limited weight bearing until consolidation can occur and foot becomes more stable. She is understanding of this but this has been difficult. Ulcerations dorsal and plantar continue to demonstrate decrease in size vs previous visit. Dorsal ulceration nearly healed but does still have some drainage which the SAP XL dressing will assist in. 12/21/24: Due to new ulcerative site on the plantar aspect of the foot she was prescribed oral antibiotic Augmentin 500 mg twice daily x 28 days (stop date 01/17/2025) 01/04/25 due to additional orgainism growth she was extended oral antibiotic of Augmentin for an additional 3 weeks (stop date 01/29/2025). Was also started on oral doxycycline 100 mg twice daily x 28 days (stop date 02/01/2025). Reports continued improvement on oral antibiotics. Her continued Charcot arthropathy changes with edema was improving but with repeated events and new plantar ulceration healing will be slow. WBC from 08/10/2024 is 12.7, ESR 36, CRP 89.20. Radiographs from 08/10/2024 do demonstrate increased osseous destruction with joint fragmentation about the Lisfranc joint and sclerosis consistent with Charcot arthropathy however osteomyelitis cannot be ruled out due to the dorsal foot wound and previous dental work. Will continue to monitor closely. She is understanding if she does develop signs and symptoms of infection which were discussed with her today she is to report to the ED for IV antibiotics as she would have failed outpatient oral antibiotic therapy. I did discuss the labs in detail with her today. She does report some improvement with the additional antibiotic. WBC from 08/28/2024 ED visit was 10.0 all other labs were within normal limits MRI had been approved at [facility] prior to visit to hospital, however while in ED that evening on 08/28/24 MRI was obtained demonstrating acute Charcot changes and soft tissue swelling. No signs of osteomyelitis. Will be permitted to continue protective weightbearing to the right lower extremity in CAM boot with stiffer Plastizote insole. Previously discussed modification to the boot should aid in increased stability to the plantar foot. We have briefly discussed all interventions for limb salvage however despite options we cannot rule out a Charcot event leading to instability. We have also discussed likelihood of lower extremity amputation secondary to continued Charcot events. Has completed all HBO dives. HgbA1c during hospital admission was 11.3% on 02/15/2024. Sugars have been well controlled following approval of insulin on new insurance. Current HgbA1c is 6.8% on 08/10/24. The following work up and care recommendations were made: Dressing: Pad and protect to dorsal ulceration site with [place] SAP dressing. She is to change daily. Iodoform packing gauze to the plantar aspect of the foot she is to also change daily. Dry sterile dressing applied to right foot. Wash: Soap and water Tissue growth optimization: iodoform packing gauze Offload: Protective weightbearing to the right lower extremity as nonweightbearing is not possible for her due to an operable herniated disc in the lumbar spine. Vascular: DP and PT pulses palpable with adequate capillary fill time. Vascular status not impacting healing at this time. Edema: Edema well-controlled. Will continue with Tubigrip stocking application Infection: No signs of infection. Pain: No pain to the ulcerative site secondary to diabetic peripheral polyneuropathy Host factors: DM type II with peripheral polyneuropathy, uncontrolled. Charcot foot right foot Her continued Charcot events is complicating her healing as swelling still persists in addition to unstable foot with continued osseous breakdown. Will continue to monitor for infection as she has had a history of this, but recent MRI excludes this favoring acute Charcot event. I answered all the patient's questions. To return to the wound healing center in 1 week or call sooner if the patient has any questions or concerns.
[2025-02-01 09:27] VITALS: BP 134/78; PULSE 98; RESP 16; TEMP 36.4
--- NOTE | 2025-02-01 13:29 | PN.PCM_ITS ---
History of Present Illness Date of Service: 02/01/25 Chief Complaint: Diabetic right foot ulceration History of Wound: Ms. Falk is a 58-year-old currently being seen at the wound center for right foot/ankle ulcer. She has finished hyperbaric oxygen therapy for the diabetic foot ulceration involving her right foot. She has been under the care of Dr. Jason Lewis, [facility], relative to the management of her diabetic foot ulceration. Review of the patient's medical record indicates that she has tolerated HBOT well and there has been corresponding significant improvement in ulcer. 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 Blood glucose readings have been largely stable. No chest pain, tightness, blurry vision or concerns reported. Objective Data Objective Data Vital Signs: Vital Signs Temp Pulse Resp BP 97.6 F L 98 16 134/78 H 02/01/25 09:27 02/01/25 09:27 02/01/25 09:27 02/01/25 09:27 Physical Exam Const alert, oriented x3 and no apparent distress General Appearance: cooperative HEENT normocephalic Eyes General Eye: normal appearance of both eyes Neck General: normal visual inspection Lymph Lymphatic: no lymphadenopathy noted and no lymphedema noted Resp normal respiratory effort and normal air movement Cardio regular rate and regular rhythm Extremity no calf tenderness Extremity Narrative: Right lower extremity: Vascular: DP and PT pulses palpable with adequate capillary fill time to the digits. Normal temperature gradient. Hair growth is absent to the digits. Neurologic: Gross sensation intact. Absent protective sensation consistent with diabetic peripheral polyneuropathy Musculoskeletal: No pain to palpation about the ulcerative site secondary to diabetic peripheral polyneuropathy. There is a Charcot foot deformity noted of the right foot. No pain to palpation about the ulcerative site. There is pain to palpation along the 5th and 4th metatarsals with plantar edema of the foot secondary to recent Charcot event with likely fracture of the metatarsal. Dermatologic: Incision site medial foot healed with cicatrix. No signs of infection. Incision site anterior leg with cicatrix proximally and distally. No signs of infection. There is a full thickness ulceration dorsally along the midfoot medial to the incision site with healthy granular tissue at the base with slight serous drainage. No purulent drainage from dorsal ulceration site. Plantar foot demonstrates full-thickness ulceration site with improving edema secondary to continued Charcot degenerative arthropathy progression. No purulence expressible from plantar foot. Skin no rashes or lesions noted Neuro moves all extremities Debridement Note Debridement Note Wound debrided: Right plantar foot Laterality: Right Wound Grade/Stage: Gonzalez stage II Type of Debridement: Excisional debridement Anesthesia Used: 5% Lidocaine Gel Depth: Down to and including healthy tissue, in the subcutaneous layer and to muscle Percentage of wound debrided: 100 Instrument Used: #15 blade and - (1 mm curette) Tissue Removed: Fibrous, devitalized subcutaneous, biofilm, slough Severity: Fat Layer Exposed Amount of bleeding with debridement: Mild Bleeding Controlled with: Compression and gauze Patient tolerated procedure: Patient tolerated procedure well Post-Debridement Measurements and Additional Note: Post-Debridement Measurements/Treatment - Nurse 1 - General Ulcer Assessment Start: 01/25/25 09:16 Freq: Status: Active Protocol: RUKHSANA Activity Type Activity Date Activity User E-sign Co-sign Detail Recorded Client Recorded Date Recorded By Document 01/25/25 09:16 DL [id number] 01/25/25 09:29 DL Document 02/01/25 09:27 CP [id number] 02/01/25 09:40 CP 01/25/25 02/01/25 09:16 09:27 - Today's Visit Information Type of service Follow-up Visit Follow-up Visit (Physician/DENTAL SERVICE TECHNICIAN (Physician/DENTAL SERVICE TECHNICIAN ) ) Arrival Mode Ambulatory Ambulatory Transfer Assistance None Patient Identification Verified (Name & Yes Yes ) Patient Requires Transmission-Based No No Precautions Vital Signs Temperature (97.8 F-99.1 F) 97.2 F L 97.6 F L Temperature Source Temporal Temporal Pulse Rate (60-100) 102 H 98 Pulse Location Monitor Monitor Respiratory Rate (12-18) 16 16 Respiratory rate source Observation Observation Blood Pressure (90/60-120/80) 119/76 134/78 H Blood Pressure Mean (mm Hg) 90 96 Source Monitor Monitor Position Sitting Blood Pressure Location Right Arm History Since Last Visit- (Skip if this is Patient's initial visit) Have you changed medications since your No No last visit? Any new allergies or adverse reactions No No Had a fall/change in ADL's that may No No increase risk of falls Signs or symptoms of abuse and/or No No neglect since last visit Have you been in the hospital since your Yes No last visit? Has dressing in place as prescribed Yes Yes Has compression in place as prescribed Yes Yes Has offloadiing in place as prescribed Yes Yes Experienced any changes in pain level or No No management Left Footwear Multipodus Splint/Boot Pain Scale: 0-10 Numeric Is Patient Pain Free? Yes Yes WC - Nurse 1 - General Ulcer Measurement Start: 01/25/25 09:16 Freq: Status: Active Protocol: Activity Type Activity Date Activity User E-sign Co-sign Detail Recorded Client Recorded Date Recorded By Document 01/25/25 09:16 DL [id number] 01/25/25 09:29 DL Document 02/01/25 09:27 CP [id number] 02/01/25 09:40 CP 01/25/25 02/01/25 09:16 09:27 Wound Center Nurse 1 #7- R PLANTAR FOOT -Current Size (cm) - Length 0.5 0.3 -Current Size (cm) - Width 0.5 0.3 -Current Size (cm) - Depth 0.9 0.5 -Total Square Cm 0.25 0.09 -Date of Last Picture (Recall this 02/01/25 field) -Photo Taken Yes Yes -Tunneling Yes -Tunneling Position (O'clock) 5 -Tunneling Distance (cm) 1.5 -Maximum Distance #2 (cm) 1.3 -Circular Undermining Yes -Exudate Amt Medium Small -Exudate Type Serosanguineous Serosanguineous -Wound Margin Distinct, Flat & Intact Outline Attached -Granulation Amt Small (1-33%) -Granulation Quality Red -Necrosis Amt None Present (0 %) -Structure Exposed N/A -Texture (Marie-wound Skin Appearance) Localized Edema ,Scarring -Moisture (Marie-wound Skin Appearance) Maceration -Color (Marie-wound Skin Appearance) No Abnormality -Temperature (Marie-wound Skin No Abnormality No Abnormality Appearance) (Pt Warm) (Pt Warm) -Tenderness on Palpation (Marie-wound No Skin Appearance) -Ulcer Cleansing Soap and Water Soap and Water -Foul Odor after Cleansing No -Anesthetic Used 5% Lidocaine 5% Lidocaine Gel Gel #5 RDorsal/Anterior Ankle -Current Size (cm) - Length 0.1 0.1 -Current Size (cm) - Width 0.1 0.1 -Current Size (cm) - Depth 0.1 0.1 -Total Square Cm 0.01 0.01 -Date of Last Picture (Recall this 02/01/25 field) -Photo Taken Yes Yes -Exudate Amt None Present None Present -Wound Margin Thickened -Granulation Amt Large (67-100%) -Granulation Quality Pale -Necrosis Amt Small (1-33%) -Necrotic Tissue Type Adherent Slough -Structure Exposed N/A N/A -Texture (Marie-wound Skin Appearance) Scarring Assessed -Moisture (Marie-wound Skin Appearance) Dry/Scaly No Abnormality -Color (Marie-wound Skin Appearance) No Abnormality -Temperature (Marie-wound Skin No Abnormality No Abnormality Appearance) (Pt Warm) (Pt Warm) -Tenderness on Palpation (Marie-wound No Skin Appearance) -Ulcer Cleansing Soap and Water Soap and Water -Foul Odor after Cleansing No -Anesthetic Used 5% Lidocaine 5% Lidocaine Gel Gel WC - Nurse 2 - General Ulcer CM Notes Start: 01/25/25 09:16 Freq: Status: Active Protocol: Activity Type Activity Date Activity User E-sign Co-sign Detail Recorded Client Recorded Date Recorded By Document 01/25/25 09:48 BMF [id number] 01/25/25 09:57 BMF Edit Result 01/25/25 09:48 BMF (1) [id number] 01/25/25 09:58 BMF Document 02/01/25 10:03 BMF [id number] 02/01/25 10:17 BMF (1) #5 RDorsal/Anterior Ankle - Post Debridement (cm) - Length 0 => 0.1 - Post Debridement (cm) - Width 0 => 0.1 - Post Debridement (cm) - Depth 0 => 0.1 - Total Square (Post) (cm) 0 => 0.01 - Area of Debridement (cm) - Length 0 => 0.1 - Area of Debridement (cm) - Width 0 => 0.1 - Total Square (Area) (cm) 0 => 0.01 - Wound/Ulcer Outcome Healed- => Not Healed Epithelialized => - Bleeding Controlled with => NA 01/25/25 02/01/25 09:48 10:03 Wound Center Nurse 2 #7- R PLANTAR FOOT -Time 09:48 10:03 -Correct Patient Yes Yes -Correct Side, Site, Position Yes Yes -Correct Procedure Yes Yes -Procedure Performed Yes Yes -Type of Procedure Debridement Debridement -Clinical Debridement Muscle / Fascia Muscle / Fascia -Tissue Removed Muscle,Fascia Muscle,Fascia -Post Debridement (cm) - Length 0.4 0.3 -Post Debridement (cm) - Width 0.4 0.3 -Post Debridement (cm) - Depth 0.5 0.5 -Total Square (Post) (cm) 0.16 0.09 -Area of Debridement (cm) - Length 0.4 0.3 -Area of Debridement (cm) - Width 0.4 0.3 -Total Square (Area) (cm) 0.16 0.09 -Tunneling Yes Yes -Tunneling Position (O'clock) 5 5 -Tunneling Distance (cm) 1.5 1.4 -Undermining/Tunneling No -Circular Undermining No -Wound/Ulcer Outcome Not Healed Not Healed -Ulcer Cleansing Rinsed/ Rinsed/ Irrigated with Irrigated with Saline Saline -Foul Odor after Cleansing No No -Bioengineered Tissue No No -Bleeding Controlled with Pressure Pressure -Treatment Response Procedure Procedure Tolerated Well Tolerated Well -Debridement - Muscle / Fascia, 1st Yes Yes 20sq cm #5 RDorsal/Anterior Ankle -Time 09:50 10:03 -Correct Patient Yes -Correct Side, Site, Position Yes -Correct Procedure Yes -Procedure Performed No Yes -Type of Procedure Debridement -Clinical Debridement Subcutaneous -Tissue Removed Subcutaneous -Post Debridement (cm) - Length 0.1 1.5 -Post Debridement (cm) - Width 0.1 1.5 -Post Debridement (cm) - Depth 0.1 0.1 -Total Square (Post) (cm) 0.01 2.25 -Area of Debridement (cm) - Length 0.1 1.5 -Area of Debridement (cm) - Width 0.1 1.5 -Total Square (Area) (cm) 0.01 2.25 -Tunneling No -Undermining/Tunneling No -Circular Undermining No -Wound/Ulcer Outcome Not Healed Not Healed -Ulcer Cleansing Rinsed/ Irrigated with Saline -Foul Odor after Cleansing No -Bioengineered Tissue No -Bleeding Controlled with NA Pressure -Treatment Response Procedure Tolerated Well -Debridement - Subq, 1st 20sq cm Yes Pain Scale: 0-10 Numeric Is Patient Pain Free? Yes Yes WC - Nurse 3 - General Ulcer D/C NN Start: 01/25/25 09:16 Freq: Status: Active Protocol: Activity Type Activity Date Activity User E-sign Co-sign Detail Recorded Client Recorded Date Recorded By Document 01/25/25 10:17 ML [id number] 01/25/25 10:18 ML Document 02/01/25 10:54 DL [id number] 02/01/25 10:56 DL 01/25/25 02/01/25 10:17 10:54 Wound Care Center Nurse 3 #7- R PLANTAR FOOT -Ulcer Cleansing Rinsed/ Rinsed/ Irrigated with Irrigated with Saline Saline -Foul Odor after Cleansing No -Primary Dressing Applied Nugauze, Nugauze, Iodoform 1in Iodoform 1/4in -Primary Dressing Covered/Secured with Dry Gauze & Dry Gauze & Roll Gauze, Roll Gauze, Secured with Secured with Tape Tape -Other Covering ABD -Nugauze, Iodoform 1/4 1 -Nugauze, Iodoform 1in 1 #5 RDorsal/Anterior Ankle -Ulcer Cleansing Rinsed/ Irrigated with Saline -Foul Odor after Cleansing No -Primary Dressing Applied Silicone Border Hysept Foam 4x4 -Other Dressing pad and protect -Primary Dressing Covered/Secured with Dry Gauze,Dry Gauze & Roll Gauze,Secured with Tape -Other Covering ABD -Hysept 1 -Silicone Border Foam 4x4 1 Treatment Response Procedure Tolerated Well Pain Scale: 0-10 Numeric Is Patient Pain Free? Yes Yes WC - Visit Discharge Discharge Condition Stable Ambulatory Status Ambulatory Transportation Private Auto Additional Wound Wound debrided: Right dorsal foot Laterality: Right Wound Grade/Stage: Gonzalez stage III Type of Debridement: Excisional debridement Anesthesia Used: 5% Lidocaine Gel Depth: Down to and including healthy tissue and in the subcutaneous layer Percentage of wound debrided: 100 Instrument Used: #15 blade Tissue Removed: Fibrous, devitalized subcutaneous, biofilm, slough Severity: Fat Layer Exposed Amount of bleeding with debridement: Mild Bleeding Controlled with: Compression and gauze Patient tolerated procedure: Patient tolerated procedure well Assessment/Plan Assessment/Plan (1) Non-pressure chronic ulcer of other part of right foot with fat layer exposed: CODE(S): L97.512 - Non-pressure chronic ulcer of other part of right foot with fat layer exposed (2) Non-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: CODE(S): L97.513 - Non-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 (3) Charcot's joint of right foot: CODE(S): M14.671 - Charcot's joint, right ankle and foot (4) Type 2 diabetes mellitus with diabetic polyneuropathy: CODE(S): E11.42 - Type 2 diabetes mellitus with diabetic polyneuropathy QUALIFIERS: Diabetes mellitus intermediate insulin use: with intermediate use Qualified Code(s): E11.42 - Type 2 diabetes mellitus with diabetic polyneuropathy; Z79.4 - terminal computer operator (current) use of insulin (5) Type 2 diabetes mellitus with foot ulcer: CODE(S): E11.621 - Type 2 diabetes mellitus with foot ulcer; L97.509 - Non-pressure chronic ulcer of other part of unspecified foot with unspecified severity QUALIFIERS: Diabetes mellitus intermediate teacher insulin use: with intermediate use Qualified Code(s): E11.621 - Type 2 diabetes mellitus with foot ulcer; L97.509 - Non-pressure chronic ulcer of other part of unspecified foot with unspecified severity; Z79.4 - terminal computer operator (current) use of insulin PLAN: Plan Patient seen and evaluated Cicatrix at incision sites medial foot and anterior leg with no signs of infection. Ulceration dorsal foot continues granulating in well versus her previous visit. She continues healing well at this time. Plantar foot ulceration secondary to edema due to cyclical Charcot events Ulceration predebridement: Dorsal foot : 0.1 cm x 0.1 cm x 0.1 cm with new scabbing Plantar Foot: 0.2 cm x 0.2 cm x 0.5 Postdebridement: Dorsal foot: 1.5 cm x 1.5 cm x 0.1 cm post scabbing debridement Plantar foot: 0.3 cm x 0.3 cm x 0.5 cm with 1.5 cm proximal tunnel plantarly. This has continued to improve with iodoform packing Ulceration did undergo debridement as noted on clinical panel above. Has completed all 10 applications of EpiFix #10. Dakin's wet to dry dorsal ulceration. She is to change dressing daily. Likely feel she had opened secondary to adhesive reaction. Plantar ulceration site packed with iodoform packing gauze. She will change dressing daily. Her area of ulceration to the plantar foot secondary to swelling from continued Charcot event. She continues cyclic events with continued breakdown of the midfoot. Her scant hyperkeratosis at the plantar foot was debrided no expressible purulence from site. Plantar ulceration site demonstrates no purulent drainage. However swab cultures were obtained 12/21/2024, awaiting results. I previously discussed with her that I feel she did experience continued progression of her new acute Charcot event most likely when she removed her boot to stand barefoot in the shower at the beginning of August. Discussed it appears she continues some breakdown at the lateral foot with another event in late September and a most recent one on 11/06/2024. Discussed her continued difficulty with Charcot arthropathy. Discussed continuing the CAM boot for immobilization and plantar support modification and continuing to stay off of her foot is much as possible until consolidation can continue to occur. Previously have discussed extending the immobilization with limited weight bearing until consolidation can occur and foot becomes more stable. She is understanding of this but this has been difficult. Ulcerations dorsal and plantar continue to demonstrate decrease in size vs previous visit. Dorsal ulceration nearly healed but does still have some drainage which the SAP XL dressing will assist in. 12/21/24: Due to new ulcerative site on the plantar aspect of the foot she was prescribed oral antibiotic Augmentin 500 mg twice daily x 28 days (stop date 01/17/2025) 01/04/25 due to additional orgainism growth she was extended oral antibiotic of Augmentin for an additional 3 weeks (stop date 01/29/2025). Was also started on oral doxycycline 100 mg twice daily x 28 days (stop date 02/01/2025). Reports continued improvement on oral antibiotics. Today, 02/01/25 Doxycycline was extended for 6 weeks. Due to cyclical return of fever following coming off of one of the antibiotics despite no current signs of infection in the foot we will refer with Dr. Rubio, infectious disease for options of continued treatment moving forward. Her continued Charcot arthropathy changes with edema was improving but with repeated events and new plantar ulceration healing will be slow. WBC from 08/10/2024 is 12.7, ESR 36, CRP 89.20. Radiographs from 08/10/2024 do demonstrate increased osseous destruction with joint fragmentation about the Lisfranc joint and sclerosis consistent with Charcot arthropathy however osteomyelitis cannot be ruled out due to the dorsal foot wound and previous dental work. Will continue to monitor closely. She is understanding if she does develop signs and symptoms of infection which were discussed with her today she is to report to the ED for IV antibiotics as she would have failed outpatient oral antibiotic therapy. I did discuss the labs in detail with her today. She does report some improvement with the additional antibiotic. WBC from 08/28/2024 ED visit was 10.0 all other labs were within normal limits MRI had been approved at [facility] prior to visit to hospital, however while in ED that evening on 08/28/24 MRI was obtained demonstrating acute Charcot changes and soft tissue swelling. No signs of osteomyelitis. Will be permitted to continue protective weightbearing to the right lower extremity in CAM boot with stiffer Plastizote insole. Previously discussed modification to the boot should aid in increased stability to the plantar foot. We have briefly discussed all interventions for limb salvage however despite options we cannot rule out a Charcot event leading to instability. We have also discussed likelihood of lower extremity amputation secondary to continued Charcot events. Has completed all HBO dives. HgbA1c during hospital admission was 11.3% on 02/15/2024. Sugars have been well controlled following approval of insulin on new insurance. Current HgbA1c is 6.8% on 08/10/24. The following work up and care recommendations were made: Dressing: Dakin's wet to dry dorsal ulceration site. She is to change daily. Iodoform packing gauze to the plantar aspect of the foot she is to also change daily. Dry sterile dressing applied to right foot. Wash: Soap and water Tissue growth optimization: iodoform packing gauze Offload: Protective weightbearing to the right lower extremity as nonweightb earing is not possible for her due to an operable herniated disc in the lumbar spine. Vascular: DP and PT pulses palpable with adequate capillary fill time. Vascular status not impacting healing at this time. Edema: Edema well-controlled. Will continue with Tubigrip stocking application Infection: No signs of infection. Pain: No pain to the ulcerative site secondary to diabetic peripheral polyne uropathy Host factors: DM type II with peripheral polyneuropathy, uncontrolled. Charcot foot right foot Her continued Charcot events is complicating her healing as swelling still persists in addition to unstable foot with continued osseous breakdown. Will continue to monitor for infection as she has had a history of this, but recent MRI excludes this favoring acute Charcot event. I answered all the patient's questions. To return to the wound healing center in 1 week or call sooner if the patient has any questions or concerns.
--- NOTE | 2025-02-01 13:50 | WC ---
PHOTO-RIGHT DORSAL ANT ANKLE
--- NOTE | 2025-02-01 13:52 | WC ---
PHOTO-RIGHT PLANTAR FOOT 02/01/25
--- NOTE | 2025-02-08 09:52 | PN.PCM_ITS ---
History of Present Illness Date of Service: 02/08/25 Chief Complaint: Diabetic right foot ulceration History of Wound: Ms. Falk is a 58-year-old currently being seen at the wound center for right foot/ankle ulcer. She has finished hyperbaric oxygen therapy for the diabetic foot ulceration involving her right foot. She has been under the care of Dr. Jason Lewis, Options Advisor, relative to the management of her diabetic foot ulceration. Review of the patient's medical record indicates that she has tolerated HBOT well and there has been corresponding significant improvement in ulcer. 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 Blood glucose readings have been largely stable. No chest pain, tightness, blurry vision or concerns reported. Subjective Subjective This is a 59-year-old female who continues to follow with the wound care center for right dorsal foot ulceration. Reports continued improvement of dorsal ulceration with Dakin's and states plantar ulceration continues improvement with iodoform packing. Reports ulcer is decreasing in size, but packing tunnel remains the same. Has followed up with Dr. Rubio and he will be continuing current oral antibiotic due to return of fevers. Ambulating in CAM boot with modification to the boot. She continues to rest her foot as much as possible with continued immobilization in CAM boot. She understands her Foot remains unstable due to continued Charcot events which is most likely why she opened new ulcer on plantar foot. Does admit to continued back pain with herniated disc which makes ambulation difficult. Denies constitutional symptoms. Denies further complaints. Objective Data Objective Data Vital Signs: Vital Signs Temp Pulse Resp BP 97.6 F L 98 16 134/78 H 02/01/25 09:27 02/01/25 09:27 02/01/25 09:27 02/01/25 09:27 Physical Exam Const alert, oriented x3 and no apparent distress General Appearance: cooperative HEENT normocephalic Eyes General Eye: normal appearance of both eyes Neck General: normal visual inspection Lymph Lymphatic: no lymphadenopathy noted and no lymphedema noted Resp normal respiratory effort and normal air movement Cardio regular rate and regular rhythm Extremity no calf tenderness Extremity Narrative: Right lower extremity: Vascular: DP and PT pulses palpable with adequate capillary fill time to the digits. Normal temperature gradient. Hair growth is absent to the digits. Neurologic: Gross sensation intact. Absent protective sensation consistent with diabetic peripheral polyneuropathy Musculoskeletal: No pain to palpation about the ulcerative site secondary to diabetic peripheral polyneuropathy. There is a Charcot foot deformity noted of the right foot. No pain to palpation about the ulcerative site. There is pain to palpation along the 5th and 4th metatarsals with plantar edema of the foot secondary to recent Charcot event with likely fracture of the metatarsal. Dermatologic: Incision site medial foot healed with cicatrix. No signs of infection. Incision site anterior leg with cicatrix proximally and distally. No signs of infection. There is a full thickness ulceration dorsally along the midfoot medial to the incision site with healthy granular tissue at the base with slight serous drainage. No purulent drainage from dorsal ulceration site. Plantar foot demonstrates full-thickness ulceration site with improving edema secondary to continued Charcot degenerative arthropathy progression. No purulence expressible from plantar foot. Skin no rashes or lesions noted Neuro moves all extremities Debridement Note Debridement Note Wound debrided: Right plantar foot Laterality: Right Wound Grade/Stage: Gonzalez stage II Type of Debridement: Excisional debridement Anesthesia Used: 5% Lidocaine Gel Depth: Down to and including healthy tissue, in the subcutaneous layer and to muscle Percentage of wound debrided: 100 Instrument Used: - (1 mm curette) Tissue Removed: Fibrous, devitalized subcutaneous, biofilm, slough Severity: Fat Layer Exposed Amount of bleeding with debridement: Mild Bleeding Controlled with: Compression and gauze Patient tolerated procedure: Patient tolerated procedure well Post-Debridement Measurements and Additional Note: Post-Debridement Measurements/Treatment - Nurse 1 - General Ulcer Assessment Start: 01/25/25 09:16 Freq: Status: Active Protocol: RUKHSANA Activity Type Activity Date Activity User E-sign Co-sign Detail Recorded Client Recorded Date Recorded By Document 01/25/25 09:16 DL [id number] 01/25/25 09:29 DL Document 02/01/25 09:27 CP [id number] 02/01/25 09:40 CP Document 02/08/25 09:19 MT [id number] 02/08/25 09:23 MT 01/25/25 02/01/25 02/08/25 09:16 09:27 09:19 - Today's Visit Information Type of service Follow-up Visit Follow-up Visit (Physician/PERFORMANCE IMPROVEMENT MANAGER (Physician/PERFORMANCE IMPROVEMENT MANAGER ) ) Arrival Mode Ambulatory Ambulatory Transfer Assistance None Patient Identification Verified (Name & Yes Yes ) Patient Requires Transmission-Based No No Precautions Vital Signs Temperature (97.8 F-99.1 F) 97.2 F L 97.6 F L Temperature Source Temporal Temporal Pulse Rate (60-100) 102 H 98 Pulse Location Monitor Monitor Respiratory Rate (12-18) 16 16 Respiratory rate source Observation Observation Blood Pressure (90/60-120/80) 119/76 134/78 H Blood Pressure Mean (mm Hg) 90 96 Source Monitor Monitor Position Sitting Blood Pressure Location Right Arm History Since Last Visit- (Skip if this is Patient's initial visit) Have you changed medications since your No No last visit? Any new allergies or adverse reactions No No Had a fall/change in ADL's that may No No increase risk of falls Signs or symptoms of abuse and/or No No neglect since last visit Have you been in the hospital since your Yes No last visit? Has dressing in place as prescribed Yes Yes Has compression in place as prescribed Yes Yes Has offloadiing in place as prescribed Yes Yes Experienced any changes in pain level or No No management Left Footwear Multipodus Splint/Boot Pain Scale: 0-10 Numeric Is Patient Pain Free? Yes Yes Yes WC - Nurse 1 - General Ulcer Measurement Start: 01/25/25 09:16 Freq: Status: Active Protocol: Activity Type Activity Date Activity User E-sign Co-sign Detail Recorded Client Recorded Date Recorded By Document 01/25/25 09:16 DL [id number] 01/25/25 09:29 DL Document 02/01/25 09:27 CP [id number] 02/01/25 09:40 CP Document 02/08/25 09:19 MT [id number] 02/08/25 09:23 MT 01/25/25 02/01/25 02/08/25 09:16 09:27 09:19 Wound Center Nurse 1 #7- R PLANTAR FOOT -Current Size (cm) - Length 0.5 0.3 0.2 -Current Size (cm) - Width 0.5 0.3 0.2 -Current Size (cm) - Depth 0.9 0.5 0.8 -Total Square Cm 0.25 0.09 0.04 -Date of Last Picture (Recall this 02/01/25 02/08/25 field) -Photo Taken Yes Yes Yes -Tunneling Yes No -Tunneling Position (O'clock) 5 -Tunneling Distance (cm) 1.5 -Undermining/Tunneling Yes -Undermining/Tunneling Starts (O'clock 12 ) -Undermining/Tunneling Ends (O'clock) 12 -Maximum Distance (cm) 1.1 -Maximum Distance #2 (cm) 1.3 -Circular Undermining Yes Yes -Exudate Amt Medium Small Medium -Exudate Type Serosanguineous Serosanguineous Serosanguineous -Wound Margin Distinct, Flat & Intact Thickened Outline Attached -Granulation Amt Small (1-33%) Large (67-100%) -Granulation Quality Red Pale,[place] -Slough/Fibrin No -Necrosis Amt None Present (0 Small (1-33%) %) -Necrotic Tissue Type Adherent Slough -Structure Exposed N/A -Texture (Marie-wound Skin Appearance) Localized Edema Assessed, ,Scarring Localized Edema -Moisture (Marie-wound Skin Appearance) Maceration Assessed, Maceration -Color (Marie-wound Skin Appearance) No Abnormality Assessed, Erythema -Temperature (Marie-wound Skin No Abnormality No Abnormality No Abnormality Appearance) (Pt Warm) (Pt Warm) (Pt Warm) -Tenderness on Palpation (Marie-wound No No Skin Appearance) -Ulcer Cleansing Soap and Water Soap and Water Soap and Water -Foul Odor after Cleansing No No -Anesthetic Used 5% Lidocaine 5% Lidocaine 5% Lidocaine Gel Gel Gel #5 RDorsal/Anterior Ankle -Current Size (cm) - Length 0.1 0.1 0.1 -Current Size (cm) - Width 0.1 0.1 0.1 -Current Size (cm) - Depth 0.1 0.1 0.1 -Total Square Cm 0.01 0.01 0.01 -Date of Last Picture (Recall this 02/01/25 02/08/25 field) -Photo Taken Yes Yes Yes -Tunneling No -Undermining/Tunneling No -Circular Undermining No -Exudate Amt None Present None Present None Present -Wound Margin Thickened Flat & Intact -Granulation Amt Large (67-100%) Large (67-100%) -Granulation Quality Pale Pale,[place] -Slough/Fibrin No -Necrosis Amt Small (1-33%) Large (67-100%) -Necrotic Tissue Type Adherent Slough -Structure Exposed N/A N/A -Texture (Marie-wound Skin Appearance) Scarring Assessed Assessed -Moisture (Marie-wound Skin Appearance) Dry/Scaly No Abnormality Assessed -Color (Marie-wound Skin Appearance) No Abnormality Assessed -Temperature (Marie-wound Skin No Abnormality No Abnormality No Abnormality Appearance) (Pt Warm) (Pt Warm) (Pt Warm) -Tenderness on Palpation (Marie-wound No No Skin Appearance) -Ulcer Cleansing Soap and Water Soap and Water Soap and Water -Foul Odor after Cleansing No No -Anesthetic Used 5% Lidocaine 5% Lidocaine 5% Lidocaine Gel Gel Gel Lower Limb Edema Present NA WC - Nurse 2 - General Ulcer CM Notes Start: 01/25/25 09:16 Freq: Status: Active Protocol: Activity Type Activity Date Activity User E-sign Co-sign Detail Recorded Client Recorded Date Recorded By Document 01/25/25 09:48 BMF [id number] 01/25/25 09:57 BMF Edit Result 01/25/25 09:48 BMF (1) [id number] 01/25/25 09:58 BMF Document 02/01/25 10:03 BMF [id number] 02/01/25 10:17 BMF (1) #5 RDorsal/Anterior Ankle - Post Debridement (cm) - Length 0 => 0.1 - Post Debridement (cm) - Width 0 => 0.1 - Post Debridement (cm) - Depth 0 => 0.1 - Total Square (Post) (cm) 0 => 0.01 - Area of Debridement (cm) - Length 0 => 0.1 - Area of Debridement (cm) - Width 0 => 0.1 - Total Square (Area) (cm) 0 => 0.01 - Wound/Ulcer Outcome Healed- => Not Healed Epithelialized => - Bleeding Controlled with => NA 01/25/25 02/01/25 09:48 10:03 Wound Center Nurse 2 #7- R PLANTAR FOOT -Time 09:48 10:03 -Correct Patient Yes Yes -Correct Side, Site, Position Yes Yes -Correct Procedure Yes Yes -Procedure Performed Yes Yes -Type of Procedure Debridement Debridement -Clinical Debridement Muscle / Fascia Muscle / Fascia -Tissue Removed Muscle,Fascia Muscle,Fascia -Post Debridement (cm) - Length 0.4 0.3 -Post Debridement (cm) - Width 0.4 0.3 -Post Debridement (cm) - Depth 0.5 0.5 -Total Square (Post) (cm) 0.16 0.09 -Area of Debridement (cm) - Length 0.4 0.3 -Area of Debridement (cm) - Width 0.4 0.3 -Total Square (Area) (cm) 0.16 0.09 -Tunneling Yes Yes -Tunneling Position (O'clock) 5 5 -Tunneling Distance (cm) 1.5 1.4 -Undermining/Tunneling No -Circular Undermining No -Wound/Ulcer Outcome Not Healed Not Healed -Ulcer Cleansing Rinsed/ Rinsed/ Irrigated with Irrigated with Saline Saline -Foul Odor after Cleansing No No -Bioengineered Tissue No No -Bleeding Controlled with Pressure Pressure -Treatment Response Procedure Procedure Tolerated Well Tolerated Well -Debridement - Muscle / Fascia, 1st Yes Yes 20sq cm #5 RDorsal/Anterior Ankle -Time 09:50 10:03 -Correct Patient Yes -Correct Side, Site, Position Yes -Correct Procedure Yes -Procedure Performed No Yes -Type of Procedure Debridement -Clinical Debridement Subcutaneous -Tissue Removed Subcutaneous -Post Debridement (cm) - Length 0.1 1.5 -Post Debridement (cm) - Width 0.1 1.5 -Post Debridement (cm) - Depth 0.1 0.1 -Total Square (Post) (cm) 0.01 2.25 -Area of Debridement (cm) - Length 0.1 1.5 -Area of Debridement (cm) - Width 0.1 1.5 -Total Square (Area) (cm) 0.01 2.25 -Tunneling No -Undermining/Tunneling No -Circular Undermining No -Wound/Ulcer Outcome Not Healed Not Healed -Ulcer Cleansing Rinsed/ Irrigated with Saline -Foul Odor after Cleansing No -Bioengineered Tissue No -Bleeding Controlled with NA Pressure -Treatment Response Procedure Tolerated Well -Debridement - Subq, 1st 20sq cm Yes Pain Scale: 0-10 Numeric Is Patient Pain Free? Yes Yes WC - Nurse 3 - General Ulcer D/C NN Start: 01/25/25 09:16 Freq: Status: Active Protocol: Activity Type Activity Date Activity User E-sign Co-sign Detail Recorded Client Recorded Date Recorded By Document 01/25/25 10:17 ML [id number] 01/25/25 10:18 ML Document 02/01/25 10:54 DL [id number] 02/01/25 10:56 DL 01/25/25 02/01/25 10:17 10:54 Wound Care Center Nurse 3 #7- R PLANTAR FOOT -Ulcer Cleansing Rinsed/ Rinsed/ Irrigated with Irrigated with Saline Saline -Foul Odor after Cleansing No -Primary Dressing Applied Nugauze, Nugauze, Iodoform 1in Iodoform 1/4in -Primary Dressing Covered/Secured with Dry Gauze & Dry Gauze & Roll Gauze, Roll Gauze, Secured with Secured with Tape Tape -Other Covering ABD -Nugauze, Iodoform 1/4 1 -Nugauze, Iodoform 1in 1 #5 RDorsal/Anterior Ankle -Ulcer Cleansing Rinsed/ Irrigated with Saline -Foul Odor after Cleansing No -Primary Dressing Applied Silicone Border Hysept Foam 4x4 -Other Dressing pad and protect -Primary Dressing Covered/Secured with Dry Gauze,Dry Gauze & Roll Gauze,Secured with Tape -Other Covering ABD -Hysept 1 -Silicone Border Foam 4x4 1 Treatment Response Procedure Tolerated Well Pain Scale: 0-10 Numeric Is Patient Pain Free? 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 (2) Non-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: CODE(S): L97.513 - Non-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 (3) Charcot's joint of right foot: CODE(S): M14.671 - Charcot's joint, right ankle and foot (4) Type 2 diabetes mellitus with diabetic polyneuropathy: CODE(S): E11.42 - Type 2 diabetes mellitus with diabetic polyneuropathy QUALIFIERS: Diabetes mellitus senior living insulin use: with senior living use Qualified Code(s): E11.42 - Type 2 diabetes mellitus with diabetic polyneuropathy; Z79.4 - long-term (current) use of insulin (5) Type 2 diabetes mellitus with foot ulcer: CODE(S): E11.621 - Type 2 diabetes mellitus with foot ulcer; L97.509 - Non-pressure chronic ulcer of other part of unspecified foot with unspecified severity QUALIFIERS: Diabetes mellitus senior living insulin use: with senior maintenance technician use Qualified Code(s): E11.621 - Type 2 diabetes mellitus with foot ulcer; L97.509 - Non-pressure chronic ulcer of other part of unspecified foot with unspecified severity; Z79.4 - trackmobile operator (current) use of insulin PLAN: Plan Patient seen and evaluated Cicatrix at incision sites medial foot and anterior leg with no signs of infection. Ulceration dorsal foot continues granulating in well versus her previous visit. She continues healing well at this time. Plantar foot ulceration secondary to edema due to cyclical Charcot events Ulceration predebridement: Dorsal foot : 0.1 cm x 0.1 cm x 0.1 cm Plantar Foot: 0.2 cm x 0.3 cm x 1.0 Postdebridement: Dorsal foot: 0.1 cm x 0.1 cm x 0.1 cm Plantar foot: 0.3 cm x 0.4 cm x 1.0 cm with 2.5 cm proximal tunnel plantarly. Ulceration did undergo debridement as noted on clinical panel above. Has completed all 10 applications of EpiFix #10. There is some increase in the proximal tunnel and depth of the plantar wound but still no expressible purulent drainage. Devin's wet to dry dorsal ulceration. She is to change dressing daily. Likely feel she had opened secondary to adhesive reaction. Plantar ulceration site packed with iodoform packing gauze. She will change dressing daily. Her area of ulceration to the plantar foot secondary to swelling from continued Charcot event. She continues cyclic events with continued breakdown of the midfoot. Her scant hyperkeratosis at the plantar foot was debrided no expressible purulence from site. Plantar ulceration site demonstrates no purulent drainage. However swab cultures were obtained 12/21/2024. Culture of tissue and swab demonstrate corynebacterium striatum, staph epi, and rare strep sp. I previously discussed with her that I feel she did experience continued progression of her new acute Charcot event most likely when she removed her boot to stand barefoot in the shower at the beginning of August. Discussed it appears she continues some breakdown at the lateral foot with another event in late September and a most recent one on 11/06/2024. Discussed her continued difficulty with Charcot arthropathy. Discussed continuing the CAM boot for immobilization and plantar support modification and continuing to stay off of her foot is much as possible until consolidation can continue to occur. Previously have discussed extending the immobilization with limited weight bearing until consolidation can occur and foot becomes more stable. She is understanding of this but this has been difficult. Ulcerations dorsal and plantar continue to demonstrate decrease in size vs previous visit. Dorsal ulceration nearly healed but does still have some drainage which the SAP XL dressing will assist in. 12/21/24: Due to new ulcerative site on the plantar aspect of the foot she was prescribed oral antibiotic Augmentin 500 mg twice daily x 28 days (stop date 01/17/2025) 01/04/25 due to additional organism growth she was extended oral antibiotic of Augmentin for an additional 3 weeks (stop date 01/29/2025). Was also started on oral doxycycline 100 mg twice daily x 28 days (stop date 02/01/2025). Reports continued improvement on oral antibiotics. 02/01/25 Doxycycline was extended for 6 weeks. Due to cyclical return of fever following coming off of one of the antibiotics despite no current signs of infection in the foot we will refer with Dr. Rubio, infectious disease for options of continued treatment moving forward. Her continued Charcot arthropathy changes with edema was improving but with repeated events and new plantar ulceration healing will be slow. WBC from 08/10/2024 is 12.7, ESR 36, CRP 89.20. Radiographs from 08/10/2024 do demonstrate increased osseous destruction with joint fragmentation about the Lisfranc joint and sclerosis consistent with Charcot arthropathy however osteomyelitis cannot be ruled out due to the dorsal foot wound and previous dental work. Will continue to monitor closely. She is understanding if she does develop signs and symptoms of infection which were discussed with her today she is to report to the ED for IV antibiotics as she would have failed outpatient oral antibiotic therapy. I did discuss the labs in detail with her today. She does report some improvement with the additional antibiotic. WBC from 08/28/2024 ED visit was 10.0 all other labs were within normal limits MRI had been approved at [facility] prior to visit to hospital, however while in ED that evening on 08/28/24 MRI was obtained demonstrating acute Charcot changes and soft tissue swelling. No signs of osteomyelitis. Infectious disease has ordered additional MRI for repeat imaging due to continued fevers to rule out underlying osteomyelitis in the foot. Cultures did return positive from the 12/21 date as stated above and she is currently on antibiotics with infectious disease following. We have discussed if fevers continue and she may be required to undergo IV antibiotics inpatient setting and if this does occur pending MRI would then perform I&D and bone biopsy for further information. Will be permitted to continue protective weightbearing to the right lower extremity in CAM boot with stiffer Plastizote insole. Previously discussed modification to the boot should aid in increased stability to the plantar foot. We have briefly discussed all interventions for limb salvage however despite options we cannot rule out a Charcot event leading to instability. We have also discussed likelihood of lower extremity amputation secondary to continued Charcot events vs continued infection. Has completed all HBO dives. HgbA1c during hospital admission was 11.3% on 02/15/2024. Sugars have been well controlled following approval of insulin on new insurance. Current HgbA1c is 6.8% on 08/10/24. The following work up and care recommendations were made: Dressing: Dakin's wet to dry dorsal ulceration site. She is to change daily. Iodoform packing gauze to the plantar aspect of the foot she is to also change daily. Dry sterile dressing applied to right foot. Wash: Soap and water Tissue growth optimization: iodoform packing gauze Offload: Protective weightbearing to the right lower extremity as nonweightbearing is not possible for her due to an operable herniated disc in the lumbar spine. Vascular: DP and PT pulses palpable with adequate capillary fill time. Vascular status not impacting healing at this time. Edema: Edema well-controlled. Will continue with Tubigrip stocking application Infection: No signs of infection. Pain: No pain to the ulcerative site secondary to diabetic peripheral polyneuropathy Host factors: DM type II with peripheral polyneuropathy, uncontrolled. Charcot foot right foot Her continued Charcot events is complicating her healing as swelling still persists in addition to unstable foot with continued osseous breakdown. Will continue to monitor for infection as she has had a history of this, but recent MRI excludes this favoring acute Charcot event. I answered all the patient's questions. To return to the wound healing center in 1 week or call sooner if the patient has any questions or concerns.
--- NOTE | 2025-02-09 09:29 | WC ---
PHOTO-RIGHT PLANTAR 02/08/25
--- NOTE | 2025-02-09 09:36 | WC ---
PHOTO-RIGHT DORSAL 02/08/25
[2025-02-15 09:53] VITALS: BP 120/80; PULSE 78; TEMP 36.2
--- NOTE | 2025-02-15 13:24 | PN.PCM_ITS ---
History of Present Illness Date of Service: 02/15/25 Chief Complaint: Diabetic right foot ulceration History of Wound: Ms. Falk is a 58-year-old currently being seen at the wound center for right foot/ankle ulcer. She has finished hyperbaric oxygen therapy for the diabetic foot ulceration involving her right foot. She has been under the care of Dr. Jason Lewis, Station Detective, relative to the management of her diabetic foot ulceration. Review of the patient's medical record indicates that she has tolerated HBOT well and there has been corresponding significant improvement in ulcer. 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 Blood glucose readings have been largely stable. No chest pain, tightness, blurry vision or concerns reported. Subjective Subjective This is a 59-year-old female who continues to follow with the wound care center for right dorsal and plantar foot ulceration. Reports continued improvement of dorsal ulceration with Dakin's and states plantar ulceration continues improvement with iodoform packing. Reports ulcer is decreasing in size and packing tunnel starting to decrease. Has followed up with Dr. Rubio and he will be continuing current oral antibiotic due to return of fevers. Ambulating in CAM boot with modification to the boot. She continues to rest her foot as much as possible with continued immobilization in CAM boot. She understands her Foot remains unstable due to continued Charcot events which is most likely why she opened new ulcer on plantar foot. Does admit to continued back pain with herniated disc which makes ambulation difficult. Denies constitutional symptoms. Denies further complaints. Objective Data Objective Data Vital Signs: Vital Signs Temp Pulse Resp BP O2 Del Method 97.2 F L 78 16 120/80 Room Air 02/15/25 09:53 02/15/25 09:53 02/01/25 09:27 02/15/25 09:53 02/15/25 09:53 Oxygen Delivery Method Room Air Physical Exam Const alert, oriented x3 and no apparent distress General Appearance: cooperative HEENT normocephalic Eyes General Eye: normal appearance of both eyes Neck General: normal visual inspection Lymph Lymphatic: no lymphadenopathy noted and no lymphedema noted Resp normal respiratory effort and normal air movement Cardio regular rate and regular rhythm Extremity no calf tenderness Extremity Narrative: Right lower extremity: Vascular: DP and PT pulses palpable with adequate capillary fill time to the digits. Normal temperature gradient. Hair growth is absent to the digits. Neurologic: Gross sensation intact. Absent protective sensation consistent with diabetic peripheral polyneuropathy Musculoskeletal: No pain to palpation about the ulcerative site secondary to diabetic peripheral polyneuropathy. There is a Charcot foot deformity noted of the right foot. No pain to palpation about the ulcerative site. There is pain to palpation along the 5th and 4th metatarsals with plantar edema of the foot secondary to recent Charcot event with likely fracture of the metatarsal. Dermatologic: Incision site medial foot healed with cicatrix. No signs of infection. Incision site anterior leg with cicatrix proximally and distally. No signs of infection. There is a full thickness ulceration dorsally along the midfoot medial to the incision site with healthy granular tissue at the base with slight serous drainage. No purulent drainage from dorsal ulceration site. Plantar foot demonstrates full-thickness ulceration site with improving edema secondary to continued Charcot degenerative arthropathy progression. No purulence expressible from plantar foot. Skin no rashes or lesions noted Neuro moves all extremities Debridement Note Debridement Note Wound debrided: Right plantar foot Laterality: Right Wound Grade/Stage: Gonzalez stage II Type of Debridement: Excisional debridement Anesthesia Used: 5% Lidocaine Gel Depth: Down to and including healthy tissue, in the subcutaneous layer and to muscle Percentage of wound debrided: 100 Instrument Used: #15 blade and - (1 mm curette) Tissue Removed: Fibrous, devitalized subcutaneous, biofilm, slough Severity: Fat Layer Exposed Amount of bleeding with debridement: Mild Bleeding Controlled with: Compression and gauze Patient tolerated procedure: Patient tolerated procedure well Post-Debridement Measurements and Additional Note: Post-Debridement Measurements/Treatment WC - Nurse 1 - General Ulcer Assessment Start: 01/25/25 09:16 Freq: Status: Active Protocol: RUKHASNA Activity Type Activity Date Activity User E-sign Co-sign Detail Recorded Client Recorded Date Recorded By Document 01/25/25 09:16 DL [id number] 01/25/25 09:29 DL Document 02/01/25 09:27 CP [id number] 02/01/25 09:40 CP Document 02/08/25 09:19 MT [id number] 02/08/25 09:23 MT Document 02/15/25 09:53 DS [id number] 02/15/25 09:56 DS 01/25/25 02/01/25 02/08/25 09:16 09:27 09:19 - Today's Visit Information Type of service Follow-up Visit Follow-up Visit (Physician/LABORER CAR BARN (Physician/LABORER CAR BARN ) ) Arrival Mode Ambulatory Ambulatory Transfer Assistance None Patient Identification Verified (Name & Yes Yes ) Patient Requires Transmission-Based No No Precautions Safety Precautions Vital Signs Temperature (97.8 F-99.1 F) 97.2 F L 97.6 F L Temperature Source Temporal Temporal Pulse Rate (60-100) 102 H 98 Pulse Location Monitor Monitor Respiratory Rate (12-18) 16 16 Respiratory rate source Observation Observation Oxygen Delivery Method Blood Pressure (90/60-120/80) 119/76 134/78 H Blood Pressure Mean (mm Hg) 90 96 Source Monitor Monitor Position Sitting Blood Pressure Location Right Arm History Since Last Visit- (Skip if this is Patient's initial visit) Have you changed medications since your No No last visit? Any new allergies or adverse reactions No No Had a fall/change in ADL's that may No No increase risk of falls Signs or symptoms of abuse and/or No No neglect since last visit Have you been in the hospital since your Yes No last visit? Has dressing in place as prescribed Yes Yes Has compression in place as prescribed Yes Yes Has offloadiing in place as prescribed Yes Yes Experienced any changes in pain level or No No management Left Footwear Multipodus Splint/Boot Right Footwear Pain Scale: 0-10 Numeric Is Patient Pain Free? Yes Yes Yes 02/15/25 09:53 - Today's Visit Information Type of service Follow-up Visit (Physician/LABORER CAR [employer]ARN ) Arrival Mode Ambulatory Transfer Assistance Patient Identification Verified (Name & Yes ) Patient Requires Transmission-Based No Precautions Safety Precautions Fall Prevention Vital Signs Temperature (97.8 F-99.1 F) 97.2 F L Temperature Source Temporal Pulse Rate (60-100) 78 Pulse Location Monitor Respiratory Rate (12-18) Respiratory rate source Observation Oxygen Delivery Method Room Air Blood Pressure (90/60-120/80) 120/80 Blood Pressure Mean (mm Hg) 93 Source Monitor Position Semi-Fowlers Blood Pressure Location Right Arm History Since Last Visit- (Skip if this is Patient's initial visit) Have you changed medications since your No last visit? Any new allergies or adverse reactions No Had a fall/change in ADL's that may No increase risk of falls Signs or symptoms of abuse and/or No neglect since last visit Have you been in the hospital since your No last visit? Has dressing in place as prescribed Yes Has compression in place as prescribed Yes Has offloadiing in place as prescribed Yes Experienced any changes in pain level or No management Left Footwear Regular Shoe Right Footwear Regular Shoe Pain Scale: 0-10 Numeric Is Patient Pain Free? Yes WC - Nurse 1 - General Ulcer Measurement Start: 01/25/25 09:16 Freq: Status: Active Protocol: Activity Type Activity Date Activity User E-sign Co-sign Detail Recorded Client Recorded Date Recorded By Document 01/25/25 09:16 DL [id number] 01/25/25 09:29 DL Document 02/01/25 09:27 CP [id number] 02/01/25 09:40 CP Document 02/08/25 09:19 MT [id number] 02/08/25 09:23 MT Document 02/15/25 10:10 RB [id number] 02/15/25 10:11 RB 01/25/25 02/01/25 02/08/25 09:16 09:27 09:19 Wound Center Nurse 1 #7- R PLANTAR FOOT -Combined with other wound -Current Size (cm) - Length 0.5 0.3 0.2 -Current Size (cm) - Width 0.5 0.3 0.2 -Current Size (cm) - Depth 0.9 0.5 0.8 -Total Square Cm 0.25 0.09 0.04 -Date of Last Picture (Recall this 02/01/25 02/08/25 field) -Photo Taken Yes Yes Yes -Tunneling Yes No -Tunneling Position (O'clock) 5 -Tunneling Distance (cm) 1.5 -Undermining/Tunneling Yes -Undermining/Tunneling Starts (O'clock 12 ) -Undermining/Tunneling Ends (O'clock) 12 -Maximum Distance (cm) 1.1 -Maximum Distance #2 (cm) 1.3 -Circular Undermining Yes Yes -Exudate Amt Medium Small Medium -Exudate Type Serosanguineous Serosanguineous Serosanguineous -Wound Margin Distinct, Flat & Intact Thickened Outline Attached -Granulation Amt Small (1-33%) Large (67-100%) -Granulation Quality Red Pale,[place] -Slough/Fibrin No -Necrosis Amt None Present (0 Small (1-33%) %) -Necrotic Tissue Type Adherent Slough -Structure Exposed N/A -Texture (Marie-wound Skin Appearance) Localized Edema Assessed, ,Scarring Localized Edema -Moisture (Marie-wound Skin Appearance) Maceration Assessed, Maceration -Color (Marie-wound Skin Appearance) No Abnormality Assessed, Erythema -Temperature (Marie-wound Skin No Abnormality No Abnormality No Abnormality Appearance) (Pt Warm) (Pt Warm) (Pt Warm) -Tenderness on Palpation (Marie-wound No No Skin Appearance) -Ulcer Cleansing Soap and Water Soap and Water Soap and Water -Foul Odor after Cleansing No No -Anesthetic Used 5% Lidocaine 5% Lidocaine 5% Lidocaine Gel Gel Gel #5 RDorsal/Anterior Ankle -Combined with other wound -Current Size (cm) - Length 0.1 0.1 0.1 -Current Size (cm) - Width 0.1 0.1 0.1 -Current Size (cm) - Depth 0.1 0.1 0.1 -Total Square Cm 0.01 0.01 0.01 -Date of Last Picture (Recall this 02/01/25 02/08/25 field) -Photo Taken Yes Yes Yes -Tunneling No -Undermining/Tunneling No -Circular Undermining No -Exudate Amt None Present None Present None Present -Wound Margin Thickened Flat & Intact -Granulation Amt Large (67-100%) Large (67-100%) -Granulation Quality Pale Pale,[place] -Slough/Fibrin No -Necrosis Amt Small (1-33%) Large (67-100%) -Necrotic Tissue Type Adherent Slough -Structure Exposed N/A N/A -Texture (Marie-wound Skin Appearance) Scarring Assessed Assessed -Moisture (Marie-wound Skin Appearance) Dry/Scaly No Abnormality Assessed -Color (Marie-wound Skin Appearance) No Abnormality Assessed -Temperature (Marie-wound Skin No Abnormality No Abnormality No Abnormality Appearance) (Pt Warm) (Pt Warm) (Pt Warm) -Tenderness on Palpation (Marie-wound No No Skin Appearance) -Ulcer Cleansing Soap and Water Soap and Water Soap and Water -Foul Odor after Cleansing No No -Anesthetic Used 5% Lidocaine 5% Lidocaine 5% Lidocaine Gel Gel Gel Lower Limb Edema Present NA Right Calf (cm) Right Ankle (cm) 02/15/25 10:10 Wound Center Nurse 1 #7- R PLANTAR FOOT -Combined with other wound No -Current Size (cm) - Length 0.3 -Current Size (cm) - Width 0.3 -Current Size (cm) - Depth 1.4 -Total Square Cm 0.09 -Date of Last Picture (Recall this field) -Photo Taken Yes -Tunneling No -Tunneling Position (O'clock) -Tunneling Distance (cm) -Undermining/Tunneling No -Undermining/Tunneling Starts (O'clock ) -Undermining/Tunneling Ends (O'clock) -Maximum Distance (cm) -Maximum Distance #2 (cm) -Circular Undermining No -Exudate Amt Medium -Exudate Type Serosanguineous -Wound Margin Distinct, Outline Attached -Granulation Amt Medium (34-66%) -Granulation Quality [place] -Slough/Fibrin Yes -Necrosis Amt Medium (34-66%) -Necrotic Tissue Type Adherent Slough -Structure Exposed N/A -Texture (Marie-wound Skin Appearance) Assessed,Callus -Moisture (Marie-wound Skin Appearance) Assessed -Color (Marie-wound Skin Appearance) Assessed -Temperature (Marie-wound Skin No Abnormality Appearance) (Pt Warm) -Tenderness on Palpation (Marie-wound No Skin Appearance) -Ulcer Cleansing Wound Cleanser -Foul Odor after Cleansing No -Anesthetic Used 5% Lidocaine Gel #5 RDorsal/Anterior Ankle -Combined with other wound No -Current Size (cm) - Length 0.1 -Current Size (cm) - Width 0.1 -Current Size (cm) - Depth 0.1 -Total Square Cm 0.01 -Date of Last Picture (Recall this field) -Photo Taken Yes -Tunneling No -Undermining/Tunneling No -Circular Undermining No -Exudate Amt None Present -Wound Margin Distinct, Outline Attached -Granulation Amt -Granulation Quality [place] -Slough/Fibrin Yes -Necrosis Amt Large (67-100%) -Necrotic Tissue Type Adherent Slough -Structure Exposed N/A -Texture (Marie-wound Skin Appearance) Assessed -Moisture (Marie-wound Skin Appearance) Dry/Scaly -Color (Marie-wound Skin Appearance) Assessed -Temperature (Marie-wound Skin No Abnormality Appearance) (Pt Warm) -Tenderness on Palpation (Marie-wound No Skin Appearance) -Ulcer Cleansing Rinsed/ Irrigated with Saline -Foul Odor after Cleansing No -Anesthetic Used 5% Lidocaine Gel Lower Limb Edema Present Yes Right Calf (cm) 35.5 Right Ankle (cm) 23.6 WC - Nurse 2 - General Ulcer CM Notes Start: 01/25/25 09:16 Freq: Status: Active Protocol: Activity Type Activity Date Activity User E-sign Co-sign Detail Recorded Client Recorded Date Recorded By Document 01/25/25 09:48 BMF [id number] 01/25/25 09:57 BMF Edit Result 01/25/25 09:48 BMF (1) [id number] 01/25/25 09:58 BMF Document 02/01/25 10:03 BMF [id number] 02/01/25 10:17 BMF Document 02/08/25 09:33 BMF [id number] 02/08/25 09:59 BMF Document 02/15/25 10:35 DS [id number] 02/15/25 10:40 DS (1) #5 RDorsal/Anterior Ankle - Post Debridement (cm) - Length 0 => 0.1 - Post Debridement (cm) - Width 0 => 0.1 - Post Debridement (cm) - Depth 0 => 0.1 - Total Square (Post) (cm) 0 => 0.01 - Area of Debridement (cm) - Length 0 => 0.1 - Area of Debridement (cm) - Width 0 => 0.1 - Total Square (Area) (cm) 0 => 0.01 - Wound/Ulcer Outcome Healed- => Not Healed Epithelialized => - Bleeding Controlled with => NA 01/25/25 02/01/25 02/08/25 09:48 10:03 09:33 Wound Center Nurse 2 #7- R PLANTAR FOOT -Time 09:48 10:03 09:47 -Correct Patient Yes Yes Yes -Correct Side, Site, Position Yes Yes Yes -Correct Procedure Yes Yes Yes -Procedure Performed Yes Yes Yes -Type of Procedure Debridement Debridement Debridement -Clinical Debridement Muscle / Fascia Muscle / Fascia Muscle / Fascia -Tissue Removed Muscle,Fascia Muscle,Fascia Muscle,Fascia -Post Debridement (cm) - Length 0.4 0.3 0.3 -Post Debridement (cm) - Width 0.4 0.3 0.4 -Post Debridement (cm) - Depth 0.5 0.5 1 -Total Square (Post) (cm) 0.16 0.09 0.12 -Area of Debridement (cm) - Length 0.4 0.3 0.3 -Area of Debridement (cm) - Width 0.4 0.3 0.4 -Total Square (Area) (cm) 0.16 0.09 0.12 -Tunneling Yes Yes Yes -Tunneling Position (O'clock) 5 5 5 -Tunneling Distance (cm) 1.5 1.4 2.5 -Undermining/Tunneling No No -Circular Undermining No No -Wound/Ulcer Outcome Not Healed Not Healed Not Healed -Ulcer Cleansing Rinsed/ Rinsed/ Rinsed/ Irrigated with Irrigated with Irrigated with Saline Saline Saline -Foul Odor after Cleansing No No No -Bioengineered Tissue No No No -Bleeding Controlled with Pressure Pressure Pressure -Treatment Response Procedure Procedure Procedure Tolerated Well Tolerated Well Tolerated Well -Offloading -Type of Offloading -Debridement - Muscle / Fascia, 1st Yes Yes Yes 20sq cm #5 RDorsal/Anterior Ankle -Time 09:50 10:03 09:39 -Correct Patient Yes -Correct Side, Site, Position Yes -Correct Procedure Yes -Procedure Performed No Yes No -Type of Procedure Debridement -Clinical Debridement Subcutaneous -Tissue Removed Subcutaneous -Post Debridement (cm) - Length 0.1 1.5 0.1 -Post Debridement (cm) - Width 0.1 1.5 0.1 -Post Debridement (cm) - Depth 0.1 0.1 0.1 -Total Square (Post) (cm) 0.01 2.25 0.01 -Area of Debridement (cm) - Length 0.1 1.5 0.1 -Area of Debridement (cm) - Width 0.1 1.5 0.1 -Total Square (Area) (cm) 0.01 2.25 0.01 -Tunneling No -Undermining/Tunneling No -Circular Undermining No -Wound/Ulcer Outcome Not Healed Not Healed Not Healed -Ulcer Cleansing Rinsed/ Irrigated with Saline -Foul Odor after Cleansing No -Bioengineered Tissue No -Bleeding Controlled with NA Pressure NA -Treatment Response Procedure Tolerated Well -Debridement - Subq, 1st 20sq cm Yes Pain Scale: 0-10 Numeric Is Patient Pain Free? Yes Yes Yes 02/15/25 10:35 Wound Center Nurse 2 #7- R PLANTAR FOOT -Time 10:35 -Correct Patient Yes -Correct Side, Site, Position Yes -Correct Procedure Yes -Procedure Performed Yes -Type of Procedure Debridement -Clinical Debridement Muscle / Fascia -Tissue Removed Muscle,Fascia -Post Debridement (cm) - Length 0.3 -Post Debridement (cm) - Width 0.3 -Post Debridement (cm) - Depth 0.9 -Total Square (Post) (cm) 0.09 -Area of Debridement (cm) - Length 0.3 -Area of Debridement (cm) - Width 0.3 -Total Square (Area) (cm) 0.09 -Tunneling Yes -Tunneling Position (O'clock) 5 -Tunneling Distance (cm) 2.0 -Undermining/Tunneling No -Circular Undermining No -Wound/Ulcer Outcome Not Healed -Ulcer Cleansing Rinsed/ Irrigated with Saline -Foul Odor after Cleansing No -Bioengineered Tissue No -Bleeding Controlled with Pressure -Treatment Response Procedure Tolerated Well -Offloading Yes -Type of Offloading Camwalker -Debridement - Muscle / Fascia, 1st Yes 20sq cm #5 RDorsal/Anterior Ankle -Time 10:38 -Correct Patient Yes -Correct Side, Site, Position Yes -Correct Procedure -Procedure Performed No -Type of Procedure -Clinical Debridement -Tissue Removed -Post Debridement (cm) - Length 0.1 -Post Debridement (cm) - Width 0.1 -Post Debridement (cm) - Depth 0.1 -Total Square (Post) (cm) 0.01 -Area of Debridement (cm) - Length 0.1 -Area of Debridement (cm) - Width 0.1 -Total Square (Area) (cm) 0.01 -Tunneling No -Undermining/Tunneling No -Circular Undermining No -Wound/Ulcer Outcome Not Healed -Ulcer Cleansing Rinsed/ Irrigated with Saline -Foul Odor after Cleansing No -Bioengineered Tissue No -Bleeding Controlled with Pressure -Treatment Response Procedure Tolerated Well -Debridement - Subq, 1st 20sq cm Pain Scale: 0-10 Numeric Is Patient Pain Free? Yes WC - Nurse 3 - General Ulcer D/C NN Start: 01/25/25 09:16 Freq: Status: Active Protocol: Activity Type Activity Date Activity User E-sign Co-sign Detail Recorded Client Recorded Date Recorded By Document 01/25/25 10:17 ML [id number] 01/25/25 10:18 ML Document 02/01/25 10:54 DL [id number] 02/01/25 10:56 DL Document 02/08/25 10:13 DL [id number] 02/08/25 10:15 DL Document 02/15/25 11:16 RB [id number] 02/15/25 11:17 RB 01/25/25 02/01/25 02/08/25 10:17 10:54 10:13 Wound Care Center Nurse 3 #7- R PLANTAR FOOT -Ulcer Cleansing Rinsed/ Rinsed/ Rinsed/ Irrigated with Irrigated with Irrigated with Saline Saline Saline -Foul Odor after Cleansing No No -Primary Dressing Applied Nugauze, Nugauze, Iodoform 1in Iodoform 1/4in -Other Dressing 1/4 Iodoform -Primary Dressing Covered/Secured with Dry Gauze & Dry Gauze & Dry Gauze & Roll Gauze, Roll Gauze, Roll Gauze, Secured with Secured with Secured with Tape Tape Tape -Other Covering ABD ABD -Nugauze, Iodoform 1/4 1 -Nugauze, Iodoform 1in 1 #5 RDorsal/Anterior Ankle -Ulcer Cleansing Rinsed/ Rinsed/ Irrigated with Irrigated with Saline Saline -Foul Odor after Cleansing No No -Primary Dressing Applied Silicone Border Hysept Hysept Foam 4x4 -Other Dressing pad and protect Dakins -Primary Dressing Covered/Secured with Dry Gauze,Dry Dry Gauze & Gauze & Roll Roll Gauze, Gauze,Secured Secured with with Tape Tape -Other Covering ABD ABD -Hysept 1 1 -Silicone Border Foam 4x4 1 Treatment Response Procedure Procedure Tolerated Well Tolerated Well Pain Scale: 0-10 Numeric Is Patient Pain Free? Yes Yes Yes WC - Visit Discharge Discharge Condition Stable Stable Ambulatory Status Ambulatory Transportation Private Auto Medication Reconcilliation completed & provided to patient/care provider Clinical Summary of Care Provided 02/15/25 11:16 Wound Care Center Nurse 3 #7- R PLANTAR FOOT -Ulcer Cleansing Rinsed/ Irrigated with Saline -Foul Odor after Cleansing -Primary Dressing Applied Nugauze, Iodoform 1/4in -Other Dressing abd -Primary Dressing Covered/Secured with Dry Gauze,Dry Gauze & Roll Gauze,Secured with Tape -Other Covering -Nugauze, Iodoform 1/4 1 -Nugauze, Iodoform 1in #5 RDorsal/Anterior Ankle -Ulcer Cleansing Rinsed/ Irrigated with Saline -Foul Odor after Cleansing -Primary Dressing Applied -Other Dressing DAKINS M OISTENED GAUZE -Primary Dressing Covered/Secured with Dry Gauze,Dry Gauze & Roll Gauze,Secured with Tape -Other Covering ABD -Hysept -Silicone Border Foam 4x4 Treatment Response Procedure Tolerated Well Pain Scale: 0-10 Numeric Is Patient Pain Free? 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 (2) Non-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: CODE(S): L97.513 - Non-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 (3) Charcot's joint of right foot: CODE(S): M14.671 - Charcot's joint, right ankle and foot (4) Type 2 diabetes mellitus with diabetic polyneuropathy: CODE(S): E11.42 - Type 2 diabetes mellitus with diabetic polyneuropathy QUALIFIERS: 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: with usp use Qualified Code(s): E11.42 - Type 2 diabetes mellitus with diabetic polyneuropathy; Z79.4 - [facility] (current) use of insulin (5) Type 2 diabetes mellitus with foot ulcer: CODE(S): E11.621 - Type 2 diabetes mellitus with foot ulcer; L97.509 - Non-pressure chronic ulcer of other part of unspecified foot with unspecified severity QUALIFIERS: 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 Ulceration dorsal foot continues granulating in well versus her previous visit. She continues healing well at this time. Plantar foot ulceration secondary to edema due to cyclical Charcot events Ulceration predebridement: Dorsal foot : 0.1 cm x 0.1 cm x 0.1 cm Plantar Foot: 0.2 cm x 0.3 cm x 1.0 cm Postdebridement: Dorsal foot: 0.1 cm x 0.1 cm x 0.1 cm Plantar foot: 0.3 cm x 0.4 cm x 1.0 cm with 2.0 cm proximal tunnel plantarly. Ulceration did undergo debridement as noted on clinical panel above. Has completed all 10 applications of EpiFix #10. There is some decrease in the proximal tunnel and depth of the plantar wound and still no expressible purulent drainage. Devin's wet to dry dorsal ulceration. She is to change dressing daily. Likely feel she had opened secondary to adhesive reaction at dorsal foot. Plantar ulceration site packed with iodoform packing gauze. She will change dressing daily. Her area of ulceration to the plantar foot secondary to swelling from continued Charcot event. She continues cyclic events with continued breakdown of the midfoot. Her scant hyperkeratosis at the plantar foot was debrided no expressible purulence from site. Plantar ulceration site demonstrates no purulent drainage. However swab cultures were obtained 12/21/2024. Culture of tissue and swab demonstrate corynebacterium striatum, staph epi, and rare strep sp. I previously discussed with her that I feel she did experience continued progression of her new acute Charcot event most likely when she removed her boot to stand barefoot in the shower at the beginning of August. Discussed it appears she continues some breakdown at the lateral foot with another event in late September and a most recent one on 11/06/2024. Discussed her continued difficulty with Charcot arthropathy. Discussed continuing the CAM boot for immobilization and plantar support modification and continuing to stay off of her foot is much as possible until consolidation can continue to occur. Previously have discussed extending the immobilization with limited weight bearing until consolidation can occur and foot becomes more stable. She is understanding of this but this has been difficult. Ulcerations dorsal and plantar continue to demonstrate decrease in size vs previous visit. Dorsal ulceration nearly healed but does still have some drainage which the SAP XL dressing will assist in. 12/21/24: Due to new ulcerative site on the plantar aspect of the foot she was prescribed oral antibiotic Augmentin 500 mg twice daily x 28 days (stop date 01/17/2025) 01/04/25 due to additional organism growth she was extended oral antibiotic of Augmentin for an additional 3 weeks (stop date 01/29/2025). Was also started on oral doxycycline 100 mg twice daily x 28 days (stop date 02/01/2025). Reports continued improvement on oral antibiotics. 02/01/25 Doxycycline was extended for 6 weeks. Due to cyclical return of fever following coming off of one of the antibiotics despite no current signs of infection in the foot we will refer with Dr. Rubio, infectious disease for options of continued treatment moving forward. Her continued Charcot arthropathy changes with edema was improving but with repeated events and new plantar ulceration healing will be slow. WBC from 08/10/2024 is 12.7, ESR 36, CRP 89.20. Radiographs from 08/10/2024 do demonstrate increased osseous destruction with joint fragmentation about the Lisfranc joint and sclerosis consistent with Charcot arthropathy however osteomyelitis cannot be ruled out due to the dorsal foot wound and previous dental work. Will continue to monitor closely. She is understanding if she does develop signs and symptoms of infection which were discussed with her today she is to report to the ED for IV antibiotics as she would have failed outpatient oral antibiotic therapy. I did discuss the labs in detail with her today. She does report some improvement with the additional antibiotic. WBC from 08/28/2024 ED visit was 10.0 all other labs were within normal limits MRI had been approved at [facility] prior to visit to hospital, however while in ED that evening on 08/28/24 MRI was obtained demonstrating acute Charcot changes and soft tissue swelling. No signs of osteomyelitis. Infectious disease has ordered additional MRI for repeat imaging due to continued fevers to rule out underlying osteomyelitis in the foot. Cultures did return positive from the 12/21 date as stated above and she is currently on antibiotics with infectious disease following. We have discussed if fevers continue and she may be required to undergo IV antibiotics inpatient setting and if this does occur pending MRI would then perform I&D and bone biopsy for further information. Will be permitted to continue protective weightbearing to the right lower extremity in CAM boot with stiffer Plastizote insole. Previously discussed modification to the boot should aid in increased stability to the plantar foot. We have briefly discussed all interventions for limb salvage however despite options we cannot rule out a Charcot event leading to instability. We have also discussed likelihood of lower extremity amputation secondary to continued Charcot events vs continued infection. Has completed all HBO dives. HgbA1c during hospital admission was 11.3% on 02/15/2024. Sugars have been well controlled following approval of insulin on new insurance. Current HgbA1c is 6.8% on 08/10/24. The following work up and care recommendations were made: Dressing: Dakin's wet to dry dorsal ulceration site. She is to change daily. Iodoform packing gauze to the plantar aspect of the foot she is to also change daily. Dry sterile dressing applied to right foot. Wash: Soap and water Tissue growth optimization: iodoform packing gauze Offload: Protective weightbearing to the right lower extremity as nonweightbearing is not possible for her due to an operable herniated disc in the lumbar spine. Vascular: DP and PT pulses palpable with adequate capillary fill time. Vascular status not impacting healing at this time. Edema: Edema well-controlled. Will continue with Tubigrip stocking application Infection: No signs of infection. Pain: No pain to the ulcerative site secondary to diabetic peripheral polyneuropathy Host factors: DM type II with peripheral polyneuropathy, uncontrolled. Charcot foot right foot Her continued Charcot events is complicating her healing as swelling still persists in addition to unstable foot with continued osseous breakdown. Will continue to monitor for infection as she has had a history of this, but recent MRI excludes this favoring acute Charcot event. I answered all the patient's questions. To return to the wound healing center in 1 week or call sooner if the patient has any questions or concerns.
--- NOTE | 2025-02-15 14:20 | WC ---
PHOTO-RIGHT DORSAL 02/15/25
--- NOTE | 2025-02-15 14:25 | WC ---
PHOTO-RIGHT PLANTAR 02/15/25
--- NOTE | 2025-02-20 08:21 | WC ---
Dr. Lewis transfers care of this patient over to Dr. Howard as of 02/15/25
== END 2025-02-20 23:59 | disposition home or self-care (01) ==
LOC: WC 09:15
PROVIDERS: PCP Family Medicine; Referring Provider Student in an Organized Health Care Education/Training Program; Visit Provider Student in an Organized Health Care Education/Training Program
DX: E11.621 Type 2 diabetes mellitus with foot ulcer (principal); L97.512 Non-pressure chronic 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; E11.610 Type 2 diabetes mellitus with diabetic neuropathic arthropathy; Z79.4 Long term (current) use of insulin; E11.42 Type 2 diabetes mellitus with diabetic polyneuropathy
CPT/HCPCS: 11042; 11043

== ENCOUNTER → 2025-03-13 | Outpatient (CLI) | payer MEDICAID, SELFPAY ==
--- NOTE | 2025-03-13 12:55 | MRI_ITS ---
PROCEDURE: LOWER EXT NO JOINT W/WO CONT 03/13/2025 REASON FOR EXAM: DIABETIC FOOT INFECTION TECHNIQUE: Procedure Code: [id number] Modality: MR Procedure: LOWER EXT NO JOINT W/WO CONT T1, T2, stir, postcontrast T1 fat-sat MR images of the right foot CONTRAST: 19 cc Clariscan COMPARISON: August 28, 2024 FINDINGS: There is interval increase in the size of the abscess in the plantar soft tissues with the largest component in the metatarsal region now measuring 5.5 cm in craniocaudal dimension by 4.5 cm in AP dimension by 6.5 cm transversely. A 2nd loculated component is present in the posterior tarsal region, incompletely visualized measuring at least 4.0 x 2.3 by 5.5 cm. There is collapse of the tarsal bones and proximal articular surfaces of the metatarsals, similar to the prior. There is abnormal low T1 signal with postcontrast enhancement in the remnant of the anterior cuboid, which meets the criteria for osteomyelitis, sagittal image 13-18/32, which is contiguous with the posterior component of the abscess collection. MRI/Lower Ext No Joint W/WO Cont IMPRESSION: There is interval increase in the size of the abscess in the plantar soft tissu es with the largest component in the metatarsal region now measuring 5.5 cm in craniocaudal dimension by 4.5 cm in AP dimension by 6.5 cm transversely. A 2nd loculated component is present in the posterior tarsal region, incompletely visualized measuring at least 4.0 x 2.3 by 5.5 cm. There is collapse of the tarsal bones and proximal articular surfaces of the me tatarsals, similar to the prior, Charcot joint. There is abnormal low T1 signal with postcontrast enhancement in the remnant of the anterior cuboid, which meets the criteria for osteomyelitis, sagittal image 13-18/32, which is contiguous with the posterior component of the abscess collection. Reading Location: [facility]
== END | disposition home or self-care (01) ==
LOC: OPMRI 12:37
PROVIDERS: PCP Family Medicine; Referring Provider Internal Medicine Infectious Disease; Visit Provider Internal Medicine Infectious Disease
DX: E11.628 Type 2 diabetes mellitus with other skin complications (principal)
CPT/HCPCS: 73720; A9575

== ENCOUNTER 2025-03-15 09:45 | Outpatient (RCR) | payer MEDICAID, SELFPAY ==
[2025-02-22 09:30] VITALS: BP 118/71; PULSE 95; RESP 14; TEMP 36.1; O2SAT 100
--- NOTE | 2025-02-22 16:46 | PCM.WC.HP ---
History of Present Illness Date of Service: 02/22/25 Chief Complaint: Diabetic right foot ulceration History of Wound: Ms. Falk is a 59-year-old currently being seen at the wound center for right foot/ankle ulcer. She is a transfer of care to me as she had previously seen Dr. Jason Lewis podiatry/wound care. Lengthy protracted wound care of right foot. Also being seen by infectious disease due to osteomyelitis. She states that she has been on doxycycline and Augmentin for a few weeks. Has been applying iodoform to right plantar wound and Dakin's to dorsal surface. Concern for increased redness to dorsal surface which started yesterday. History of Charcot's neuroarthropathy, has no feeling. Denies pain. No chills, fever or otherwise feeling of unwell. [facility] Medical History (Updated 12/28/24 @ 13:[address] Jason Lewis, DPM) Type 2 diabetes mellitus with foot ulcer Hypotension Post-menopausal Back pain Injury of head and neck Dietary restriction Diabetes Former smoker Asthma Chronic ulcer of right foot due to diabetes mellitus Non-pressure 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 Infectious tenosynovitis Cellulitis of right lower limb MRSA bacteremia Acute osteomyelitis of left foot Diabetes mellitus with diabetic polyneuropathy Charcot's joint of right foot Narcolepsy Sleep disorder Allergies Hypothyroidism History of MRSA infection Weakness COVID-19 DKA, type 2 Malnutrition 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 Home Medications ?Medication ?Instructions ?Recorded ?Last Taken ?Type montelukast 10 mg tablet 10 mg PO QHS allergy 09/25/16 Unknown History (Singulair) ibuprofen 200 mg tablet (Advil) 400 mg PO BID pain 05/21/21 Unknown History levocetirizine 5 mg tablet 1 tab PO DAILY PRN Allergies 11/22/21 Unknown History levothyroxine 112 mcg tablet 112 mcg PO DAILY thyroi 02/09/24 Unknown History daptomycin 500 mg intravenous 750 mg IV DAILY 40 days 02/18/24 Unknown Rx solution acetaminophen 325 mg tablet 650 mg (2 x 325 mg) PO Q6H PRN PRN 02/20/24 Unknown Rx Pain 1-10 Or Fever >100.7 #0 tabs insulin glargine-yfgn 100 unit/mL 28 unit (0.28 mL) subcut BID #0 mL 02/20/24 Unknown Rx (3 mL) subcutaneous pen amoxicillin 500 mg-potassium 1 tab PO BID 08/28/24 Unknown History clavulanate 125 mg tablet armodafinil 250 mg tablet 150 mg PO DAILY narcalepsy 08/28/24 Unknown History baclofen 10 mg tablet 10 mg PO TID 08/28/24 Unknown History estradiol 0.01% (0.1 mg/gram) 1 appful vaginal .twice a week 08/28/24 Unknown History vaginal cream estrogen liothyronine 25 mcg tablet 12.5 mcg PO DAILY 08/28/24 Unknown History Allergy/AdvReac Type Severity Reaction Status Date / Time clindamycin Allergy Hives Verified 08/28/24 11:49 pregabalin (From Lyrica) Allergy Swelling Verified 08/28/24 11:49 bee venom protein (honey bee) AdvReac Anaphylaxis Verified 08/28/24 11:49 vancomycin AdvReac Other Verified 08/28/24 11:49 Family History Father CVA (cerebral vascular accident) Clotting disorder Seizures Mother Osteoarthritis Other Charcot's joint of right foot Diabetes Heart disease Hypertension 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 alcohol intake: current alcohol intake frequency: holidays/special occasions only substance use type: does not use ROS Constitutional Constitutional: Denies change in weight, chills, daytime sleepiness, fatigue, frequent falls, headache(s) or increased appetite Eyes Eyes: Denies acute decrease in peripheral vision, blind spots, change in eye color, change in vision, discongugate gaze or double vision ENT HEENT: Denies ear pain, epistaxis, facial pain, foreign body in nose, halitosis, headache(s) or mouth pain Cardiovascular Cardiovascular: Denies abdominal pain, bluish discoloration of hand/feet, chest pain, claudication, clubbing or cold extremities Respiratory/Chest Respiratory/Chest: Denies chest congestion, difficulty clearing secretions, dyspnea on exertion, excessive phlegm production, hemoptysis or inability to speak Gastrointestinal Gastrointestinal: Denies abdominal pain, change in bowel habits, change in stool character, chewing difficulty, dry heaves, dysphagia or excessive flatus Genitourinary Genitourinary: Denies abdominal discomfort, burning urination, difficulty urinating or flank pain Musculoskeletal Musculoskeletal: Denies muscle spasms, muscle weakness, numbness, tingling or tremors Integumentary Integumentary: Denies change in pigmentation, changing lesions, furuncle, hirsutism, jaundice or pruritus Neurologic Neurologic: Denies abnormal speech, behavior changes, focal weakness, frequent falls, loss of vision or memory loss Psychiatric Psychiatric: Denies auditory hallucinations, behavioral changes, hallucinations, irritability, memory loss, tactile hallucinations or visual hallucinations Endocrine Endocrinology: Denies cold intolerance, deepening of the voice, excessive sweating, flushing, heat intolerance or palpitations Hematologic/Lymphatic Hematologic/Lymphatic: Denies easy bleeding Allergic/Immunologic Allergic/Immunologic: Denies itchy eyes, lip swelling, throat swelling, tongue swelling, eczemia or wheezing Vital Signs Vital Signs Vital Signs: 02/22/25 09:30 Temperature 97.0 F L Temperature Source Temporal Pulse Rate 95 Respiratory Rate 14 Blood Pressure 118/71 Blood Pressure Mean 86 Blood Pressure Source Monitor Blood Pressure Position Semi-Fowlers Blood Pressure Location Left Arm Pulse Ox 100 Oxygen Delivery Method Room Air Physical Exam Const alert, oriented x3 and no apparent distress General Appearance: cooperative, comfortable and well kempt HEENT normocephalic, head/scalp atraumatic and hearing grossly normal bilaterally Eyes EOMs intact bilaterally Neck full ROM General: normal visual inspection Resp normal respiratory effort Effort and Inspection: able to speak in complete sentences Extremity General Extremity: edema Neuro oriented x3, CN's II-XII intact bilaterally, moves all extremities and no focal motor deficits Psych mental status grossly normal, thought process normal, cooperative and affect normal Debridement Note Debridement Note Wound debrided: Right Foot ( Plantar ) Type of Debridement: Excisional debridement Anesthesia Used: 5% Lidocaine Gel Depth: Down to and including healthy tissue and in the subcutaneous layer Percentage of wound debrided: 100 Instrument Used: 3mm curette Tissue Removed: Devitalized tissue Severity: Fat Layer Exposed Amount of bleeding with debridement: Mild Bleeding Controlled with: Pressure Patient tolerated procedure: Patient tolerated procedure well Post-Debridement Measurements and Additional Note: Post-Debridement Measurements/Treatment WC - Nurse 1 - General Ulcer Assessment Start: 02/22/25 09:30 Freq: Status: Active Protocol: RUKHSANA Activity Type Activity Date Activity User E-sign Co-sign Detail Recorded Client Recorded Date Recorded By Document 02/22/25 09:30 [email or web address] [id number] 02/22/25 09:57 ARIK 02/22/25 09:30 ALISSA - Today's Visit Information Type of service Follow-up Visit (Physician/DIRECTOR OF REHABILITATIVE SERVICES ) Arrival Mode Ambulatory Transfer Assistance None Patient Identification Verified (Name & Yes ) Patient Requires Transmission-Based No Precautions Safety Precautions Fall Prevention Vital Signs Temperature (97.8 F-99.1 F) 97.0 F L Temperature Source Temporal Pulse Rate (60-100) 95 Pulse Location Monitor Respiratory Rate (12-18) 14 Respiratory rate source Observation Pulse Oximetry 100 Oxygen Delivery Method Room Air Blood Pressure (90/60-120/80) 118/71 Blood Pressure Mean 86 Source Monitor Position Semi-Fowlers Blood Pressure Location Left Arm History Since Last Visit- (Skip if this is Patient's initial visit) Have you changed medications since your No last visit? Any new allergies or adverse reactions No Had a fall/change in ADL's that may No increase risk of falls Signs or symptoms of abuse and/or No neglect since last visit Have you been in the hospital since your No last visit? Has dressing in place as prescribed Yes Has compression in place as prescribed Yes Has offloadiing in place as prescribed Yes Experienced any changes in pain level or No management Left Footwear Regular Shoe Right Footwear Removable Cast Walker/Walking Boot Pain Scale: 0-10 Numeric Is Patient Pain Free? No RT foot -Intensity 7 -Duration (hours) Chronic -Alleviating Factors/Interventions Turning/ Repositioning WC - Nurse 1 - General Ulcer Measurement Start: 02/22/25 09:30 Freq: Status: Active Protocol: Activity Type Activity Date Activity User E-sign Co-sign Detail Recorded Client Recorded Date Recorded By Document 02/22/25 09:30 [email or web address] [id number] 02/22/25 09:57 ARIK 02/22/25 09:30 Wound Center Nurse 1 #7- R PLANTAR FOOT -Combined with other wound No -Current Size (cm) - Length 0.3 -Current Size (cm) - Width 0.3 -Current Size (cm) - Depth 0.9 -Total Square Cm 0.09 -Date of Last Picture (Recall this 02/22/25 field) -Photo Taken Yes -Tunneling Yes -Tunneling Position (O'clock) 5 -Tunneling Distance (cm) 1.8 -Exudate Amt Small -Exudate Type Serosanguineous -Wound Margin Distinct, Outline Attached -Granulation Amt None Present (0 %) -Slough/Fibrin No -Necrosis Amt None Present (0 %) -Texture (Marie-wound Skin Appearance) Assessed -Moisture (Marie-wound Skin Appearance) Assessed, Maceration -Color (Marie-wound Skin Appearance) Assessed -Temperature (Marie-wound Skin No Abnormality Appearance) (Pt Warm) -Tenderness on Palpation (Marie-wound No Skin Appearance) -Ulcer Cleansing Soap and Water -Foul Odor after Cleansing No -Anesthetic Used 5% Lidocaine Gel #5 RDorsal/Anterior Ankle -Combined with other wound No -Current Size (cm) - Length 0.1 -Current Size (cm) - Width 0.1 -Current Size (cm) - Depth 0.1 -Total Square Cm 0.01 -Date of Last Picture (Recall this 02/22/25 field) -Photo Taken Yes -Tunneling No -Undermining/Tunneling No -Circular Undermining No -Exudate Amt None Present -Wound Margin Distinct, Outline Attached -Granulation Amt None Present (0 %) -Necrosis Amt None Present (0 %) -Texture (Marie-wound Skin Appearance) Assessed -Moisture (Marie-wound Skin Appearance) Assessed -Color (Marie-wound Skin Appearance) Assessed, Ecchymosis -Temperature (Marie-wound Skin No Abnormality Appearance) (Pt Warm) -Tenderness on Palpation (Marie-wound No Skin Appearance) -Ulcer Cleansing Soap and Water -Foul Odor after Cleansing No -Anesthetic Used 5% Lidocaine Gel WC - Nurse 2 - General Ulcer CM Notes Start: 02/22/25 09:30 Freq: Status: Active Protocol: Activity Type Activity Date Activity User E-sign Co-sign Detail Recorded Client Recorded Date Recorded By Document 02/22/25 10:09 [id number] 02/22/25 10:22 02/22/25 10:09 Wound Center Nurse 2 #7- R PLANTAR FOOT -Time 10:09 -Correct Patient Yes -Correct Side, Site, Position Yes -Correct Procedure Yes -Procedure Performed Yes -Type of Procedure Debridement -Clinical Debridement Subcutaneous -Tissue Removed Subcutaneous -Post Debridement (cm) - Length 0.3 -Post Debridement (cm) - Width 0.4 -Post Debridement (cm) - Depth 1.0 -Total Square (Post) (cm) 0.12 -Area of Debridement (cm) - Length 0.3 -Area of Debridement (cm) - Width 0.4 -Total Square (Area) (cm) 0.12 -Tunneling Yes -Tunneling Position (O'clock) 6 -Tunneling Distance (cm) 1.9 -Undermining/Tunneling No -Circular Undermining No -Wound/Ulcer Outcome Not Healed -Ulcer Cleansing Rinsed/ Irrigated with Saline -Foul Odor after Cleansing No -Bioengineered Tissue No -Bleeding Controlled with Pressure -Treatment Response Procedure Tolerated Well -Offloading No -Debridement - Subq, 1st 20sq cm Yes Pain Scale: 0-10 Numeric Is Patient Pain Free? Yes - Nurse 3 - General Ulcer D/C NN Start: 02/22/25 09:30 Freq: Status: Active Protocol: Activity Type Activity Date Activity User E-sign Co-sign Detail Recorded Client Recorded Date Recorded By Document 02/22/25 11:29 [id number] 02/22/25 11:31 RB 02/22/25 11:29 Wound Care Center Nurse 3 #7- R PLANTAR FOOT -Ulcer Cleansing Rinsed/ Irrigated with Saline -Primary Dressing Applied Nugauze, Iodoform 1/4in -Other Dressing ABD -Primary Dressing Covered/Secured with Dry Gauze & Roll Gauze, Secured with Tape -Nugauze, Iodoform 1/4 1 #5 RDorsal/Anterior Ankle -Ulcer Cleansing betadine -Primary Dressing Applied NonAdherent Contact Layer, Silicone Border Foam 6x6 -Silicone Border Foam 6x6 1 RLE -Compression Wrap Sebastian Wrap Treatment Response Procedure Tolerated Well Pain Scale: 0-10 Numeric Is Patient Pain Free? Yes - Visit Discharge Discharge Condition Stable Ambulatory Status Ambulatory Transportation Private Auto Medication Reconcilliation completed & No provided to patient/care provider Clinical Summary of Care Provided Yes Charges/Coding Visit Charges Office Visits / Consults: 88352 OV L3 Est 20min Procedures Integumentary [id number]: [id number] Precious subq tissue 20 sq cm/< Assessment/Plan Assessment/Plan (1) Non-pressure chronic ulcer of other part of right foot with fat layer exposed: CODE(S): L97.512 - Non-pressure chronic ulcer of other part of right foot with fat layer exposed (2) Non-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: CODE(S): L97.513 - Non-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 (3) Charcot's joint of right foot: CODE(S): M14.671 - Charcot's joint, right ankle and foot (4) Type 2 diabetes mellitus with diabetic polyneuropathy: CODE(S): E11.42 - Type 2 diabetes mellitus with diabetic polyneuropathy QUALIFIERS: Diabetes mellitus custodial insulin use: with custodial use Qualified Code(s): E11.42 - Type 2 diabetes mellitus with diabetic polyneuropathy; Z79.4 - penitentiary (current) use of insulin (5) Type 2 diabetes mellitus with foot ulcer: CODE(S): E11.621 - Type 2 diabetes mellitus with foot ulcer; L97.509 - Non-pressure chronic ulcer of other part of unspecified foot with unspecified severity QUALIFIERS: Diabetes mellitus bed bug exterminator insulin use: with bed bug exterminator use Qualified Code(s): E11.621 - Type 2 diabetes mellitus with foot ulcer; L97.509 - Non-pressure chronic ulcer of other part of unspecified foot with unspecified severity; Z79.4 - superintendent terminal (current) use of insulin PLAN: Plan Debridement done as documented above, procedure was well-tolerated. As above, concern for increased erythema and maceration of the right dorsal foot. Due to neuropathy, no sensation of pain. Chronic antibiotic use currently on Augmentin and doxycycline prescribed by infectious disease due to osteomyelitis. No chills, fever or otherwise feeling of unwell. Has been using Dakin's wet-to-dry to the right dorsal foot, will switch to Betadine dressing daily, cover with foam dressing. Continue iodoform packing to right plantar foot. Continue offloading and other chronic management. Continue adequate protein intake, leg elevation and exercise as tolerated. Her questions were answered, she was advised to let us know if she had any further questions or concerns. Concerning symptoms regarding right dorsal foot discussed, she was advised to call or go to the emergency room if she notes worsening. Follow-up in a week or sooner if needed. This note was generated with [place] [employer] dictation software. It may contain incorrect words, spelling, and punctuation that were not noted in checking the note before signing.
--- NOTE | 2025-02-26 10:29 | WC ---
PHOTO-RIGHT PLANTAR 02/22/25
--- NOTE | 2025-02-26 10:31 | WC ---
PHOTO-RIGHT DORSAL 02/22/25
--- NOTE | 2025-02-26 10:32 | WC ---
PHOTO-RIGHT PLANTAR 02/22/25
[2025-03-01 09:38] VITALS: BP 137/88; PULSE 84; RESP 16; TEMP 36
--- NOTE | 2025-03-01 10:17 | PCM.WC.PN ---
History of Present Illness Date of Service: 03/01/25 Chief Complaint: Diabetic right foot ulceration History of Wound: Ms. Falk is a 59-year-old currently being seen at the wound center for right foot/ankle ulcer. She is a transfer of care to [facility] as she had previously seen Dr. Jason Lewis podiatry/wound care. Lengthy protracted wound care of right foot. Also being seen by infectious disease due to osteomyelitis. She states that she has been on doxycycline and Augmentin for a few weeks. Has been applying iodoform to right plantar wound and Dakin's to dorsal surface. Concern for increased redness to dorsal surface which started yesterday. History of Charcot's neuroarthropathy, has no feeling. Denies pain. No chills, fever or otherwise feeling of unwell. Progress of Wound: No acute concerns at this time. Has been using Betadine dressing to dorsal foot with improvement reported. No significant drainage from the plantar area. Objective Data Objective Data Vital Signs: Vital Signs Temp Pulse Resp BP Pulse Ox O2 Del Method 96.8 F L 84 16 137/88 H 100 Room Air 03/01/25 09:38 03/01/25 09:38 03/01/25 09:38 03/01/25 09:38 02/22/25 09:30 02/22/25 09:30 Oxygen Delivery Method Room Air Charges/Coding Procedures Integumentary 111xxx-113xx: [id number] Precious subq tissue 20 sq cm/< Physical Exam Const alert, oriented x3 and no apparent distress General Appearance: cooperative, comfortable and well kempt HEENT normocephalic, head/scalp atraumatic and hearing grossly normal bilaterally Eyes EOMs intact bilaterally Neck full ROM General: normal visual inspection Resp normal respiratory effort Effort and Inspection: able to speak in complete sentences Extremity General Extremity: edema Neuro oriented x3, CN's II-XII intact bilaterally, moves all extremities and no focal motor deficits Psych mental status grossly normal, thought process normal, cooperative and affect normal Debridement Note Debridement Note Wound debrided: Right dorsal foot Type of Debridement: Excisional debridement Anesthesia Used: 5% Lidocaine Gel Depth: Down to and including healthy tissue and in the subcutaneous layer Percentage of wound debrided: 100 Instrument Used: 5mm curette Tissue Removed: Devitalized tissue Severity: Fat Layer Exposed Amount of bleeding with debridement: Mild Bleeding Controlled with: Pressure Patient tolerated procedure: Patient tolerated procedure well Post-Debridement Measurements and Additional Note: Post-Debridement Measurements/Treatment - Nurse 1 - General Ulcer Assessment Start: 02/22/25 09:30 Freq: Status: Active Protocol: RUKHSANA Activity Type Activity Date Activity User E-sign Co-sign Detail Recorded Client Recorded Date Recorded By Document 02/22/25 09:30 ARIK [id number] 02/22/25 09:57 JM Document 03/01/25 09:38 JF [id number] 03/01/25 09:48 JF 02/22/25 03/01/25 09:30 09:38 - Today's Visit Information Type of service Follow-up Visit Follow-up Visit (Physician/TUBE BENDER (Physician/TUBE BENDER ) ) Arrival Mode Ambulatory Ambulatory Transfer Assistance None Patient Identification Verified (Name & Yes Yes ) Patient Requires Transmission-Based No No Precautions Safety Precautions Fall Prevention Finger Stick Blood Sugar(mg/dl) (if 170 indicated): Blood Sugar Stated by Patient Vital Signs Temperature (97.8 F-99.1 F) 97.0 F L 96.8 F L Temperature Source Temporal Temporal Pulse Rate (60-100) 95 84 Pulse Location Monitor Monitor Respiratory Rate (12-18) 14 16 Respiratory rate source Observation Observation Pulse Oximetry 100 Oxygen Delivery Method Room Air Blood Pressure (90/60-120/80) 118/71 137/88 H Blood Pressure Mean (mm Hg) 86 104 Source Monitor Monitor Position Semi-Fowlers Semi-Fowlers Blood Pressure Location Left Arm Left Arm History Since Last Visit- (Skip if this is Patient's initial visit) Have you changed medications since your No Yes last visit? Any new allergies or adverse reactions No No Had a fall/change in ADL's that may No No increase risk of falls Signs or symptoms of abuse and/or No No neglect since last visit Have you been in the hospital since your No No last visit? Has dressing in place as prescribed Yes Yes Has compression in place as prescribed Yes Yes Has offloadiing in place as prescribed Yes Yes Experienced any changes in pain level or No No management Left Footwear Regular Shoe Regular Shoe Right Footwear Removable Cast Removable Cast Walker/Walking Walker/Walking Boot Boot Pain Scale: 0-10 Numeric Is Patient Pain Free? No Yes RT foot -Intensity 7 -Duration (hours) Chronic -Alleviating Factors/Interventions Turning/ Repositioning - Nurse 1 - General Ulcer Measurement Start: 02/22/25 09:30 Freq: Status: Active Protocol: Activity Type Activity Date Activity User E-sign Co-sign Detail Recorded Client Recorded Date Recorded By Document 02/22/25 09:30 ARIK [id number] 02/22/25 09:57 ARIK Document 03/01/25 09:38 JF [id number] 03/01/25 09:48 JF 02/22/25 03/01/25 09:30 09:38 Wound Center Nurse 1 #7- R PLANTAR FOOT -Combined with other wound No No -Current Size (cm) - Length 0.3 0.3 -Current Size (cm) - Width 0.3 0.4 -Current Size (cm) - Depth 0.9 1.7 -Total Square Cm 0.09 0.12 -Date of Last Picture (Recall this 02/22/25 field) -Photo Taken Yes Yes -Epithelialization None Present -Tunneling Yes No -Tunneling Position (O'clock) 5 -Tunneling Distance (cm) 1.8 -Undermining/Tunneling No -Circular Undermining No -Exudate Amt Small Large -Exudate Type Serosanguineous Serosanguineous -Wound Margin Distinct, Flat & Intact Outline Attached -Granulation Amt None Present (0 Medium (34-66%) %) -Granulation Quality Red -Slough/Fibrin No Yes -Necrosis Amt None Present (0 Small (1-33%) %) -Necrotic Tissue Type Adherent Slough -Structure Exposed N/A -Texture (Marie-wound Skin Appearance) Assessed Assessed, Localized Edema -Moisture (Marie-wound Skin Appearance) Assessed, Assessed,Dry/ Maceration Scaly -Color (Marie-wound Skin Appearance) Assessed Assessed -Temperature (Marie-wound Skin No Abnormality No Abnormality Appearance) (Pt Warm) (Pt Warm) -Tenderness on Palpation (Marie-wound No No Skin Appearance) -Ulcer Cleansing Soap and Water Not Cleansed -Foul Odor after Cleansing No No -Anesthetic Used 5% Lidocaine 5% Lidocaine Gel Gel #5 RDorsal/Anterior Ankle -Combined with other wound No No -Current Size (cm) - Length 0.1 0.1 -Current Size (cm) - Width 0.1 0.1 -Current Size (cm) - Depth 0.1 0.1 -Total Square Cm 0.01 0.01 -Date of Last Picture (Recall this 02/22/25 field) -Photo Taken Yes Yes -Epithelialization Large 67-100% -Tunneling No No -Undermining/Tunneling No No -Circular Undermining No No -Exudate Amt None Present None Present -Wound Margin Distinct, Fibrotic Scar, Outline Thickened Scar Attached -Granulation Amt None Present (0 None Present (0 %) %) -Slough/Fibrin Yes -Necrosis Amt None Present (0 Large (67-100%) %) -Necrotic Tissue Type Adherent Slough -Structure Exposed N/A -Texture (Marie-wound Skin Appearance) Assessed Assessed, Scarring -Moisture (Marie-wound Skin Appearance) Assessed Assessed,Dry/ Scaly -Color (Marie-wound Skin Appearance) Assessed, Assessed Ecchymosis -Temperature (Marie-wound Skin No Abnormality No Abnormality Appearance) (Pt Warm) (Pt Warm) -Tenderness on Palpation (Marie-wound No No Skin Appearance) -Ulcer Cleansing Soap and Water Soap and Water -Foul Odor after Cleansing No No -Anesthetic Used 5% Lidocaine 5% Lidocaine Gel Gel Lower Limb Edema Present NA WC - Nurse 2 - General Ulcer CM Notes Start: 02/22/25 09:30 Freq: Status: Active Protocol: Activity Type Activity Date Activity User E-sign Co-sign Detail Recorded Client Recorded Date Recorded By Document 02/22/25 10:09 [id number] 02/22/25 10:22 Document 03/01/25 09:58 [id number] 03/01/25 10:08 02/22/25 03/01/25 10:09 09:58 Wound Center Nurse 2 #7- R PLANTAR FOOT -Time 10:09 09:58 -Correct Patient Yes Yes -Correct Side, Site, Position Yes Yes -Correct Procedure Yes Yes -Procedure Performed Yes Yes -Type of Procedure Debridement Debridement -Clinical Debridement Subcutaneous Subcutaneous -Tissue Removed Subcutaneous Subcutaneous -Post Debridement (cm) - Length 0.3 0.3 -Post Debridement (cm) - Width 0.4 0.4 -Post Debridement (cm) - Depth 1.0 1.2 -Total Square (Post) (cm) 0.12 0.12 -Area of Debridement (cm) - Length 0.3 0.3 -Area of Debridement (cm) - Width 0.4 0.4 -Total Square (Area) (cm) 0.12 0.12 -Tunneling Yes Yes -Tunneling Position (O'clock) 6 6 -Tunneling Distance (cm) 1.9 1.5 -Undermining/Tunneling No No -Circular Undermining No No -Wound/Ulcer Outcome Not Healed Not Healed -Ulcer Cleansing Rinsed/ Rinsed/ Irrigated with Irrigated with Saline Saline -Foul Odor after Cleansing No No -Bioengineered Tissue No No -Bleeding Controlled with Pressure Pressure -Treatment Response Procedure Procedure Tolerated Well Tolerated Well -Offloading No No -Debridement - Subq, 1st 20sq cm Yes Yes #5 RDorsal/Anterior Ankle -Time 10:01 -Correct Patient Yes -Correct Side, Site, Position Yes -Correct Procedure Yes -Procedure Performed Yes -Type of Procedure Debridement -Clinical Debridement Subcutaneous -Tissue Removed Subcutaneous -Post Debridement (cm) - Length 1.0 -Post Debridement (cm) - Width 1.0 -Post Debridement (cm) - Depth 0.1 -Total Square (Post) (cm) 1.00 -Area of Debridement (cm) - Length 1.0 -Area of Debridement (cm) - Width 1.0 -Total Square (Area) (cm) 1.00 -Tunneling No -Undermining/Tunneling No -Circular Undermining No -Wound/Ulcer Outcome Not Healed -Foul Odor after Cleansing No -Bioengineered Tissue No -Bleeding Controlled with Pressure -Treatment Response Procedure Tolerated Well -Offloading No -Debridement - Subq, 1st 20sq cm No Pain Scale: 0-10 Numeric Is Patient Pain Free? Yes Yes WC - Nurse 3 - General Ulcer D/C NN Start: 02/22/25 09:30 Freq: Status: Active Protocol: Activity Type Activity Date Activity User E-sign Co-sign Detail Recorded Client Recorded Date Recorded By Document 02/22/25 11:29 RB [id number] 02/22/25 11:31 RB 02/22/25 11:29 Wound Care Center Nurse 3 #7- R PLANTAR FOOT -Ulcer Cleansing Rinsed/ Irrigated with Saline -Primary Dressing Applied Nugauze, Iodoform 1/4in -Other Dressing ABD -Primary Dressing Covered/Secured with Dry Gauze & Roll Gauze, Secured with Tape -Nugauze, Iodoform 1/4 1 #5 RDorsal/Anterior Ankle -Ulcer Cleansing betadine -Primary Dressing Applied NonAdherent Contact Layer, Silicone Border Foam 6x6 -Silicone Border Foam 6x6 1 RLE -Compression Wrap Sebastian Wrap Treatment Response Procedure Tolerated Well Pain Scale: 0-10 Numeric Is Patient Pain Free? Yes WC - Visit Discharge Discharge Condition Stable Ambulatory Status Ambulatory Transportation Private Auto Medication Reconcilliation completed & No provided to patient/care provider Clinical Summary of Care Provided Yes Additional Wound Wound debrided: Right plantar foot Type of Debridement: Excisional debridement Anesthesia Used: 5% Lidocaine Gel Depth: Down to and including healthy tissue and in the subcutaneous layer Percentage of wound debrided: 100 Instrument Used: 3mm curette Tissue Removed: Devitalized tissue Severity: Fat Layer Exposed Amount of bleeding with debridement: Mild Bleeding Controlled with: Pressure Patient tolerated procedure: Patient tolerated procedure well Assessment/Plan Assessment/Plan (1) Non-pressure chronic ulcer of other part of right foot with fat layer exposed: CODE(S): L97.512 - Non-pressure chronic ulcer of other part of right foot with fat layer exposed (2) Non-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: CODE(S): L97.513 - Non-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 (3) Charcot's joint of right foot: CODE(S): M14.671 - Charcot's joint, right ankle and foot (4) Type 2 diabetes mellitus with diabetic polyneuropathy: CODE(S): E11.42 - Type 2 diabetes mellitus with diabetic polyneuropathy QUALIFIERS: Diabetes mellitus exterminator insulin use: with skilled nursing use Qualified Code(s): E11.42 - Type 2 diabetes mellitus with diabetic polyneuropathy; Z79.4 - [facility] (current) use of insulin (5) Type 2 diabetes mellitus with foot ulcer: CODE(S): E11.621 - Type 2 diabetes mellitus with foot ulcer; L97.509 - Non-pressure chronic ulcer of other part of unspecified foot with unspecified severity QUALIFIERS: Diabetes mellitus exterminator insulin use: with skilled nursing use Qualified Code(s): E11.621 - Type 2 diabetes mellitus with foot ulcer; L97.509 - Non-pressure chronic ulcer of other part of unspecified foot with unspecified severity; Z79.4 - exterminator helper termite (current) use of insulin PLAN: Plan Debridement done as documented above, procedure was well-tolerated. Concern for maceration and erythema to the right dorsal foot has improved/resolved using Betadine. No new concerns in that regard reported. Continue Betadine dressing daily, cover with foam dressing. Continue iodoform packing to right plantar foot. Continue offloading and other chronic management. Continue adequate protein intake, leg elevation and exercise as tolerated. We discussed follow-up care. She does not see a media arts professor in the community as she was seeing one here at the wound center. Due to chronic history of Charcot neuropathy, she was advised that she will need to establish with podiatry locally, she voiced understanding. Her questions were answered, she was advised to let us know if she had any further questions or concerns. Follow-up in 2 weeks or sooner if needed. This note was generated with [employer] dictation software. It may contain incorrect words, spelling, and punctuation that were not noted in checking the note before signing.
--- NOTE | 2025-03-02 10:30 | WC ---
PHOTO-RIGHT PLANTAR 03/01/25
--- NOTE | 2025-03-02 10:31 | WC ---
PHOTO-RIGHT DORSAL 03/01/25
[2025-03-15 09:50] VITALS: BP 155/80; PULSE 87; RESP 16; TEMP 36.5
--- NOTE | 2025-03-15 10:50 | PCM.WC.PN ---
History of Present Illness Date of Service: 03/15/25 Chief Complaint: Diabetic right foot ulceration History of Wound: Ms. Falk is a 59-year-old currently being seen at the wound center for right foot/ankle ulcer. She is a transfer of care to id as she had previously seen Dr. Jason Lewis podiatry/wound care. Lengthy protracted wound care of right foot. Also being seen by infectious disease due to osteomyelitis. She states that she has been on doxycycline and Augmentin for a few weeks. Has been applying iodoform to right plantar wound and Dakin's to dorsal surface. Concern for increased redness to dorsal surface which started yesterday. History of Charcot's neuroarthropathy, has no feeling. Denies pain. No chills, fever or otherwise feeling of unwell. Progress of Wound: Ulcers are overall stable. Ran out of doxycycline a week ago and has noted fevers which is not atypical. Highest recorded temperature per patient was 103. Follows up with infectious disease. Objective Data Objective Data Vital Signs: Vital Signs Temp Pulse Resp BP Pulse Ox O2 Del Method 97.7 F L 87 16 155/80 H 100 Room Air 03/15/25 09:50 03/15/25 09:50 03/15/25 09:50 03/15/25 09:50 02/22/25 09:30 02/22/25 09:30 Oxygen Delivery Method Room Air Charges/Coding Procedures Integumentary 111xxx-113xx: [id number] Precious subq tissue 20 sq cm/< Physical Exam Const alert, oriented x3 and no apparent distress General Appearance: cooperative, comfortable and well kempt HEENT normocephalic, head/scalp atraumatic and hearing grossly normal bilaterally Eyes EOMs intact bilaterally Neck full ROM General: normal visual inspection Resp normal respiratory effort Effort and Inspection: able to speak in complete sentences Extremity General Extremity: edema Neuro oriented x3, CN's II-XII intact bilaterally, moves all extremities and no focal motor deficits Psych mental status grossly normal, thought process normal, cooperative and affect normal Debridement Note Debridement Note Wound debrided: Right foot Type of Debridement: Excisional debridement Anesthesia Used: 5% Lidocaine Gel Depth: Down to and including healthy tissue and in the subcutaneous layer Percentage of wound debrided: 100 Instrument Used: 3mm curette Tissue Removed: Devitalized tissue Severity: Fat Layer Exposed Amount of bleeding with debridement: Mild Patient tolerated procedure: Patient tolerated procedure well Post-Debridement Measurements and Additional Note: Post-Debridement Measurements/Treatment WC - Nurse 1 - General Ulcer Assessment Start: 02/22/25 09:30 Freq: Status: Active Protocol: RUKHSANA Activity Type Activity Date Activity User E-sign Co-sign Detail Recorded Client Recorded Date Recorded By Document 02/22/25 09:30 JM [id number] 02/22/25 09:57 JM Document 03/01/25 09:38 JF [id number] 03/01/25 09:48 JF Document 03/15/25 09:50 TS [id number] 03/15/25 10:03 TS 02/22/25 03/01/25 03/15/25 09:30 09:38 09:50 WC - Today's Visit Information Type of service Follow-up Visit Follow-up Visit Follow-up Visit (Physician/IMMERSION METALCLEANER (Physician/IMMERSION METALCLEANER (Physician/IMMERSION METALCLEANER ) ) ) Arrival Mode Ambulatory Ambulatory Ambulatory Transfer Assistance None None Patient Identification Verified (Name & Yes Yes Yes ) Patient Requires Transmission-Based No No Precautions Safety Precautions Fall Prevention Finger Stick Blood Sugar(mg/dl) (if 170 indicated): Blood Sugar Stated by Patient Vital Signs Temperature (97.8 F-99.1 F) 97.0 F L 96.8 F L 97.7 F L Temperature Source Temporal Temporal Temporal Pulse Rate (60-100) 95 84 87 Pulse Location Monitor Monitor Monitor Respiratory Rate (12-18) 14 16 16 Respiratory rate source Observation Observation Observation Pulse Oximetry 100 Oxygen Delivery Method Room Air Blood Pressure (90/60-120/80) 118/71 137/88 H 155/80 H Blood Pressure Mean (mm Hg) 86 104 105 Source Monitor Monitor Monitor Position Semi-Fowlers Semi-Fowlers Sitting Blood Pressure Location Left Arm Left Arm Right Arm History Since Last Visit- (Skip if this is Patient's initial visit) Have you changed medications since your No Yes No last visit? Any new allergies or adverse reactions No No No Had a fall/change in ADL's that may No No No increase risk of falls Signs or symptoms of abuse and/or No No No neglect since last visit Have you been in the hospital since your No No No last visit? Has dressing in place as prescribed Yes Yes Yes Has compression in place as prescribed Yes Yes N/A Has offloadiing in place as prescribed Yes Yes N/A Experienced any changes in pain level or No No No management Left Footwear Regular Shoe Regular Shoe Regular Shoe Right Footwear Removable Cast Removable Cast Regular Shoe Walker/Walking Walker/Walking Boot Boot Pain Scale: 0-10 Numeric Is Patient Pain Free? No Yes Yes RT foot -Intensity 7 -Duration (hours) Chronic -Alleviating Factors/Interventions Turning/ Repositioning WC - Nurse 1 - General Ulcer Measurement Start: 02/22/25 09:30 Freq: Status: Active Protocol: Activity Type Activity Date Activity User E-sign Co-sign Detail Recorded Client Recorded Date Recorded By Document 02/22/25 09:30 JM [id number] 02/22/25 09:57 JM Document 03/01/25 09:38 JF [id number] 03/01/25 09:48 JF Document 03/15/25 09:50 TS [id number] 03/15/25 10:03 TS 02/22/25 03/01/25 03/15/25 09:30 09:38 09:50 Wound Center Nurse 1 #7- R PLANTAR FOOT -Combined with other wound No No No -Current Size (cm) - Length 0.3 0.3 0.3 -Current Size (cm) - Width 0.3 0.4 0.4 -Current Size (cm) - Depth 0.9 1.7 1 -Total Square Cm 0.09 0.12 0.12 -Date of Last Picture (Recall this 02/22/25 field) -Photo Taken Yes Yes Yes -Epithelialization None Present -Tunneling Yes No Yes -Tunneling Position (O'clock) 5 6 -Tunneling Distance (cm) 1.8 1.6 -Undermining/Tunneling No Yes -Undermining/Tunneling Starts (O'clock 12 ) -Undermining/Tunneling Ends (O'clock) 12 -Maximum Distance (cm) 0.3 -Circular Undermining No Yes -Exudate Amt Small Large Large -Exudate Type Serosanguineous Serosanguineous Serosanguineous -Wound Margin Distinct, Flat & Intact Distinct, Outline Outline Attached Attached -Granulation Amt None Present (0 Medium (34-66%) Large (67-100%) %) -Granulation Quality Red [place] -Slough/Fibrin No Yes Yes -Necrosis Amt None Present (0 Small (1-33%) Small (1-33%) %) -Necrotic Tissue Type Adherent Slough Adherent Slough -Structure Exposed N/A None/Limited to Skin Breakdown -Texture (Marie-wound Skin Appearance) Assessed Assessed, Assessed, Localized Edema Localized Edema -Moisture (Marie-wound Skin Appearance) Assessed, Assessed,Dry/ Assessed, Maceration Scaly Maceration -Color (Marie-wound Skin Appearance) Assessed Assessed No Abnormality -Temperature (Marie-wound Skin No Abnormality No Abnormality No Abnormality Appearance) (Pt Warm) (Pt Warm) (Pt Warm) -Tenderness on Palpation (Marie-wound No No No Skin Appearance) -Ulcer Cleansing Soap and Water Not Cleansed Soap and Water -Foul Odor after Cleansing No No No -Anesthetic Used 5% Lidocaine 5% Lidocaine 5% Lidocaine Gel Gel Gel #5 RDorsal/Anterior Ankle -Combined with other wound No No No -Current Size (cm) - Length 0.1 0.1 0.1 -Current Size (cm) - Width 0.1 0.1 0.1 -Current Size (cm) - Depth 0.1 0.1 0.1 -Total Square Cm 0.01 0.01 0.01 -Date of Last Picture (Recall this 02/22/25 field) -Photo Taken Yes Yes Yes -Epithelialization Large 67-100% Large 67-100% -Tunneling No No No -Undermining/Tunneling No No No -Circular Undermining No No -Exudate Amt None Present None Present None Present -Wound Margin Distinct, Fibrotic Scar, Flat & Intact Outline Thickened Scar Attached -Granulation Amt None Present (0 None Present (0 Large (67-100%) %) %) -Granulation Quality [place] -Slough/Fibrin Yes Yes -Necrosis Amt None Present (0 Large (67-100%) Small (1-33%) %) -Necrotic Tissue Type Adherent Slough Adherent Slough -Structure Exposed N/A None/Limited to Skin Breakdown -Texture (Marie-wound Skin Appearance) Assessed Assessed, No Abnormality Scarring -Moisture (Marie-wound Skin Appearance) Assessed Assessed,Dry/ Assessed,Dry/ Scaly Scaly -Color (Marie-wound Skin Appearance) Assessed, Assessed No Abnormality Ecchymosis -Temperature (Marie-wound Skin No Abnormality No Abnormality No Abnormality Appearance) (Pt Warm) (Pt Warm) (Pt Warm) -Tenderness on Palpation (Marie-wound No No No Skin Appearance) -Ulcer Cleansing Soap and Water Soap and Water Soap and Water -Foul Odor after Cleansing No No No -Anesthetic Used 5% Lidocaine 5% Lidocaine 5% Lidocaine Gel Gel Gel Lower Limb Edema Present NA WC - Nurse 2 - General Ulcer CM Notes Start: 02/22/25 09:30 Freq: Status: Active Protocol: Activity Type Activity Date Activity User E-sign Co-sign Detail Recorded Client Recorded Date Recorded By Document 02/22/25 10:09 [id number] 02/22/25 10:22 Document 03/01/25 09:58 [id number] 03/01/25 10:08 GM Document 03/15/25 10:15 GM [id number] 03/15/25 10:19 GM 02/22/25 03/01/25 03/15/25 10:09 09:58 10:15 Wound Center Nurse 2 #7- R PLANTAR FOOT -Time 10: 09:58 10:15 -Correct Patient Yes Yes Yes -Correct Side, Site, Position Yes Yes Yes -Correct Procedure Yes Yes Yes -Procedure Performed Yes Yes Yes -Type of Procedure Debridement Debridement Debridement -Clinical Debridement Subcutaneous Subcutaneous Subcutaneous -Tissue Removed Subcutaneous Subcutaneous Subcutaneous -Post Debridement (cm) - Length 0.3 0.3 0.3 -Post Debridement (cm) - Width 0.4 0.4 0.4 -Post Debridement (cm) - Depth 1.0 1.2 1.4 -Total Square (Post) (cm) 0.12 0.12 0.12 -Area of Debridement (cm) - Length 0.3 0.3 0.3 -Area of Debridement (cm) - Width 0.4 0.4 0.4 -Total Square (Area) (cm) 0.12 0.12 0.12 -Tunneling Yes Yes No -Tunneling Position (O'clock) 6 6 -Tunneling Distance (cm) 1.9 1.5 -Undermining/Tunneling No No No -Circular Undermining No No No -Wound/Ulcer Outcome Not Healed Not Healed Not Healed -Ulcer Cleansing Rinsed/ Rinsed/ Rinsed/ Irrigated with Irrigated with Irrigated with Saline Saline Saline -Foul Odor after Cleansing No No No -Bioengineered Tissue No No No -Bleeding Controlled with Pressure Pressure Pressure -Treatment Response Procedure Procedure Procedure Tolerated Well Tolerated Well Tolerated Well -Offloading No No No -Debridement - Subq, 1st 20sq cm Yes Yes Yes #5 RDorsal/Anterior Ankle -Time 10:01 10:16 -Correct Patient Yes Yes -Correct Side, Site, Position Yes Yes -Correct Procedure Yes Yes -Procedure Performed Yes Yes -Type of Procedure Debridement Debridement -Clinical Debridement Subcutaneous Epidermis / Dermis -Tissue Removed Subcutaneous Epidermis -Post Debridement (cm) - Length 1.0 0.1 -Post Debridement (cm) - Width 1.0 0.1 -Post Debridement (cm) - Depth 0.1 0.1 -Total Square (Post) (cm) 1.00 0.01 -Area of Debridement (cm) - Length 1.0 0.1 -Area of Debridement (cm) - Width 1.0 0.1 -Total Square (Area) (cm) 1.00 0.01 -Tunneling No No -Undermining/Tunneling No No -Circular Undermining No No -Wound/Ulcer Outcome Not Healed Not Healed -Ulcer Cleansing Rinsed/ Irrigated with Saline -Foul Odor after Cleansing No No -Bioengineered Tissue No No -Bleeding Controlled with Pressure Pressure -Treatment Response Procedure Procedure Tolerated Well Tolerated Well -Offloading No No -Debridement - Open, 1st 20sq cm Yes -Debridement - Subq, 1st 20sq cm No Pain Scale: 0-10 Numeric Is Patient Pain Free? Yes Yes Yes WC - Nurse 3 - General Ulcer D/C NN Start: 02/22/25 09:30 Freq: Status: Active Protocol: Activity Type Activity Date Activity User E-sign Co-sign Detail Recorded Client Recorded Date Recorded By Document 02/22/25 11:29 RB [id number] 02/22/25 11:31 RB Document 03/01/25 10:24 [id number] 03/01/25 10:25 02/22/25 03/01/25 11:29 10:24 Wound Care Center Nurse 3 #7- R PLANTAR FOOT -Ulcer Cleansing Rinsed/ Not Cleansed Irrigated with Saline -Foul Odor after Cleansing No -Primary Dressing Applied Nugauze, Nugauze, Iodoform 1/4in Iodoform 1/4in -Other Dressing ABD -Primary Dressing Covered/Secured with Dry Gauze & Dry Gauze & Roll Gauze, Roll Gauze, Secured with Secured with Tape Tape -Nugauze, Iodoform / 1 1 #5 RDorsal/Anterior Ankle -Ulcer Cleansing betadine Not Cleansed -Foul Odor after Cleansing No -Primary Dressing Applied NonAdherent NonAdherent Contact Layer, Contact Layer Silicone Border Foam 6x6 -Silicone Border Foam 6x6 1 RLE -Lotion applied to leg before No compression wrap -Compression Wrap Sebastian Wrap Sebastian Wrap Treatment Response Procedure Tolerated Well Pain Scale: 0-10 Numeric Is Patient Pain Free? Yes Yes WC - Visit Discharge Discharge Condition Stable Stable Ambulatory Status Ambulatory Ambulatory Transportation Private Auto Private Auto Medication Reconcilliation completed & No provided to patient/care provider Clinical Summary of Care Provided Yes Additional Wound Wound debrided: Right foot (dorsal) Type of Debridement: Selective debridement Anesthesia Used: 4% Lidocaine Solution Depth: Down to and including healthy tissue Percentage of wound debrided: 100 Tissue Removed: Devitalized tissue Severity: Limited To Skin Breakdown Amount of bleeding with debridement: Mild Bleeding Controlled with: Pressure Assessment/Plan Assessment/Plan (1) Non-pressure chronic ulcer of other part of right foot with fat layer exposed: CODE(S): L97.512 - Non-pressure chronic ulcer of other part of right foot with fat layer exposed (2) Non-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: CODE(S): L97.513 - Non-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 (3) Charcot's joint of right foot: CODE(S): M14.671 - Charcot's joint, right ankle and foot (4) Type 2 diabetes mellitus with diabetic polyneuropathy: CODE(S): E11.42 - Type 2 diabetes mellitus with diabetic polyneuropathy QUALIFIERS: Diabetes mellitus senior living insulin use: with terminal gauger use Qualified Code(s): E11.42 - Type 2 diabetes mellitus with diabetic polyneuropathy; Z79.4 - rn long term care (current) use of insulin (5) Type 2 diabetes mellitus with foot ulcer: CODE(S): E11.621 - Type 2 diabetes mellitus with foot ulcer; L97.509 - Non-pressure chronic ulcer of other part of unspecified foot with unspecified severity QUALIFIERS: Diabetes mellitus senior living insulin use: with terminal gauger use Qualified Code(s): E11.621 - Type 2 diabetes mellitus with foot ulcer; L97.509 - Non-pressure chronic ulcer of other part of unspecified foot with unspecified severity; Z79.4 - rn long term care (current) use of insulin PLAN: Plan Debridement done as documented above, procedure was well-tolerated. Overall, stable. No acute concerns in regards to the ulcerations. As above, fever since doxycycline ran out a week ago. Remains on Augmentin. She was advised to get in touch with her infectious disease specialist to see if continued antibiotic is recommended. She also recently had an MRI and is awaiting review by infectious disease. Continue Betadine dressing daily to dorsal foot, cover with foam dressing. Continue iodoform packing to right plantar foot. Continue offloading and other chronic management. Continue adequate protein intake, leg elevation and exercise as tolerated. Due to chronic history of Charcot neuropathy, she has been advised to establish with Podiatry locally. Her questions were answered, she was advised to let us know if she had any further questions or concerns. Follow-up in 1 week or sooner if needed. This note was generated with [employer] dictation software. It may contain incorrect words, spelling, and punctuation that were not noted in checking the note before signing.
--- NOTE | 2025-03-15 15:03 | WC ---
PHOTO: RIGHT DORSUM 03/15/25
--- NOTE | 2025-03-15 15:04 | WC ---
PHOTO: RIGHT CAR 03/15/25
--- NOTE | 2025-03-16 09:38 | WC ---
PHOTO-RIGHT DORSUM 03/15/25
--- NOTE | 2025-03-16 09:41 | WC ---
PHOTO-RIGHT PLANTAR 03/15/25
== END 2025-03-23 23:59 | disposition home or self-care (01) ==
LOC: WC 09:45
PROVIDERS: PCP Family Medicine; Referring Provider Student in an Organized Health Care Education/Training Program; Visit Provider Internal Medicine
DX: E11.621 Type 2 diabetes mellitus with foot ulcer (principal); L97.513 Non-pressure chronic ulcer of other part of right foot with necrosis of muscle; L97.512 Non-pressure chronic 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; M86.9 Osteomyelitis, unspecified; Z79.4 Long term (current) use of insulin; E11.610 Type 2 diabetes mellitus with diabetic neuropathic arthropathy; E11.42 Type 2 diabetes mellitus with diabetic polyneuropathy; E11.69 Type 2 diabetes mellitus with other specified complication; G47.9 Sleep disorder, unspecified; Z83.3 Family history of diabetes mellitus; Z79.1 Long term (current) use of non-steroidal anti-inflammatories (NSAID); Z87.891 Personal history of nicotine dependence; Z79.890 Hormone replacement therapy; Z86.14 Personal history of Methicillin resistant Staphylococcus aureus infection; Z86.16 Personal history of COVID-19; Z90.49 Acquired absence of other specified parts of digestive tract
CPT/HCPCS: 11042; 97597

== ENCOUNTER 2025-03-23 13:07 | Inpatient (IN) | payer MEDICAID, SELFPAY ==
--- NOTE | 2025-03-22 15:25 | PAT.ANESEVAL ---
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 When Was Last Pacemaker Check QUESTION #4 FULL TEXT: You/Your Family Experience fever (hyperthermia) with Anesthesia Last Oral Intake Last Oral intake: Last Oral Intake NPO since Meds taken in AM with sips of water? 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 Female Yes 03/22/25 14:35 HX of Motion Sickness No 03/22/25 14:35 HX of N/V After Surgery No 03/22/25 14:35 Non-Smoker Yes 03/22/25 14:35 Duration of Surgery greater Yes 03/22/25 14:35 than 60 minutes Number of Risk Factors 3 03/22/25 14:35 PONV Score Moderate Risk 03/22/25 14:35 Height & Weight Height & Weight: Anesthesia: Height & Weight Height 5 ft 8 in 08/28/24 11:49 Respiratory Assessment Respiratory Assessment - treating plant pumper: Respiratory Tract Infection Hx - treating plant pumper Hx Respiratory Tract Infection No 03/22/25 14:35 STOP Sleep Apnea STOP Sleep Apnea - treating plant pumper: STOP Sleep Apnea - treating plant pumper Hx Hypertension No 03/22/25 14:35 Hx Sleep Apnea No 03/22/25 14:35 CPAP No 03/22/25 14:35 BIPAP Do you snore loudly (louder No 03/22/25 14:35 than talking or can be heard Do you often feel tired/ No 03/22/25 14:35 fatigued/ sleepy during daytime? Has anyone observed you stop No 03/22/25 14:35 breathing during sleep? STOP Results Negative 03/22/25 14:35 QUESTION #5 FULL TEXT : Do you snore loudly (louder than talking or can be heard through closed doors)? 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 Specify any problems Hx of Preganancy in last 3 No 03/22/25 14:35 Months Nurse Filling Out Transfusion [id number] 03/22/25 14:35 & Questions: Date: 03/22/25 03/22/25 14:35 Time: 14:38 03/22/25 14:35 Patient unable to answer at this time (ie. confused, unrespo /Reproduction History /Reproductive History - treating plant pumper: /Reproductive Hx- treating plant pumper Hx Now Gestational Age (in weeks): EDC: Hx Hx Para Hx Section SAB No 03/22/25 14:35 Active Medications Active Medications: Current Medications Generic Name Dose Route Start Last Admin Trade Name Freq PRN Reason Stop Dose Admin Cefazolin Sodium 2 gm/ Sodium 110 mls @ 200 mls/hr 03/23/25 13:00 Chloride IV 03/23/25 13:32 INTRAOP ONE FOR[facility] Medical History (Updated 03/22/25 @ 14:53 by Joshua Grady) History of echocardiogram Loose, teeth Thyroid disease Hypotension Post-menopausal Back pain Injury of head and neck Dietary restriction Type 2 diabetes mellitus with foot ulcer Diabetes Former smoker Asthma Chronic ulcer of right foot due to diabetes mellitus Non-pressure 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 Infectious tenosynovitis Cellulitis of right lower limb MRSA bacteremia Acute osteomyelitis of left foot Diabetes mellitus with diabetic polyneuropathy Charcot's joint of right foot Narcolepsy Sleep disorder Allergies Hypothyroidism History of MRSA infection Weakness COVID-19 DKA, type 2 Malnutrition 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 Home Medications ?Medication ?Instructions ?Recorded ?Last Taken ?Type montelukast 10 mg tablet 10 mg PO QHS allergy 09/25/16 Unknown History (Singulair) ibuprofen 200 mg tablet (Advil) 400 mg PO BID pain 05/21/21 Unknown History levocetirizine 5 mg tablet 1 tab PO DAILY PRN Allergies 11/22/21 Unknown History levothyroxine 112 mcg tablet 112 mcg PO DAILY thyroi 02/09/24 Unknown History amoxicillin 500 mg-potassium 1 tab PO BID 08/28/24 Unknown History clavulanate 125 mg tablet armodafinil 250 mg tablet 150 mg PO BID narcalepsy 08/28/24 Unknown History baclofen 10 mg tablet 10 mg PO TID 08/28/24 Unknown History estradiol 0.01% (0.1 mg/gram) 1 appful vaginal SUWE estrogen 08/28/24 Unknown History vaginal cream liothyronine 25 mcg tablet 12.5 mcg PO DAILY 08/28/24 Unknown History doxycycline hyclate 100 mg capsule 100 mg PO BID 03/22/25 Unknown History insulin glargine-yfgn 100 unit/mL 29 unit subcut BID 03/22/25 Unknown History (3 mL) subcutaneous pen Allergy/AdvReac Type Severity Reaction Status Date / Time clindamycin Allergy Hives Verified 03/22/25 14:31 pregabalin (From Lyrica) Allergy Swelling Verified 03/22/25 14:31 bee venom protein (honey bee) AdvReac Anaphylaxis Verified 03/22/25 14:31 vancomycin AdvReac Other Verified 03/22/25 14:31 Family History Father CVA (cerebral vascular accident) Clotting disorder Seizures Mother Osteoarthritis Other Charcot's joint of right foot Diabetes Heart disease Hypertension Non-pressure chronic ulcer of other part of right foot with fat layer exposed Non-pressure 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 Type 2 diabetes mellitus with diabetic polyneuropathy Type 2 diabetes mellitus with foot ulcer Surgical History H/O uvulectomy History of incision and drainage (~02/10/24) History of incision and drainage S/P nasal septoplasty S/P right knee arthroscopy History of back surgery S/P tonsillectomy and adenoidectomy History of cholecystectomy History of ankle surgery Social History Smoking Status: Former smoker how long ago did patient quit smoking: Quit 1981. alcohol intake: current alcohol intake frequency: holidays/special occasions only substance use type: does not use Audit: Pertinent Findings Pertinent Findings EKG Perinent findings: 03/21/2025. Normal sinus rhythm. Echo (EF%) pertinent findings: 02/15/2024. EF of 45%. Normal PA pressure. No aortic stenosis noted. Additional pertinent findings: Hemoglobin A1c is 9.2. Recommendation Anesthesia Recommendation Anesthesia recommendation: F/U recommended (Please make sure surgeons office is aware of elevated A1c at 9.2. This is a increased risk for poor wound healing and increased chance of infection postoperatively. Otherwise okay to proceed.)
[2025-03-23] VITALS (11 sets, daily range): BP systolic 116–140; BP diastolic 60–88; PULSE 70–91; RESP 16–20; TEMP 36.1–36.9; O2SAT 95–100; BMI 31.8
--- NOTE | 2025-03-23 11:38 | PCM.PRE.AN2 ---
ASA Classification* ASA Classification ASA Classification: 2 Assessment & Plan Anesthesia* Anesthesia Assessment Anesthesia Assessment: Discussed sedation and/or anesthesia options, risks, benefits, and alternatives with patient/parents/legal guardian/POA. Questions invited. The patient/parents/legal guardian/POA seems to understand and agrees to proceed with anesthesia plan. Reviewed the physical assessment, medical history, allergy history and patient home medications list prior to surgery/procedure/anesthetic and documented any changes. Performed airway and anesthesia risk assessments. Anesthesia Type Anesthesia Type: General and Block (If requested by surgeon, is consented for) Anesthesia Focused Assessment* Airway Assessment Mouth opens: >3 cm Mallampati Score: II Labs Anesthesia Preop lab: CBC WBC, (4.4-11.0) 10.0 K/mm3 08/28/24, 12:20 RBC, (4.2-5.4) 3.88 M/mm3 L 08/28/24, 12:20 Hgb, (12.0-15.0) 11.6 g/dL L 08/28/24, 12:20 Hct, (37-47) 36.1 % L 08/28/24, 12:20 Plt Count, (150-450) 465 K/mm3 H 08/28/24, 12:20 CHEMISTRY Potassium, (3.3-5.1) 4.3 mmol/L 08/28/24, 12:20 Sodium, (133-145) 140 mmol/L 08/28/24, 12:20 Magnesium, (1.6-2.6) 1.8 mg/dL 11/25/21, 06:20 Phosphorus, (2.5-4.9) 3.2 mg/dL 05/22/21, 03:55 BUN, (4-19) 25 mg/dL H 08/28/24, 12:20 Creatinine, (0.70-1.20) 0.94 mg/dL 08/28/24, 12:20 Glucose, (70-99) 273 mg/dL H 08/28/24, 12:20 POC Glucose, (74-106) 158 mg/dL H 07/31/24, 10:31 TSH, (0.358-3.740) 1.300 uIU/mL 02/15/24, 05:20 COAG PT, (11.7-14.9) 14.0 SECONDS 11/22/21, 18:00 Urine Test Negative Negative 05/21/21, 00:05 Pre-Assessment Diagnosis/Proposed Procedure Planned Operative Procedure(s): INCISION AND DRAINAGE OF THE RIGHT FOOT Anesthesia History 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 When Was Last Pacemaker Check QUESTION #4 FULL TEXT: You/Your Family Experience fever (hyperthermia) with Anesthesia Last Oral Intake Last Oral intake: Last Oral Intake NPO since Meds taken in AM with sips of water? Meds patient instructed to take am of surgery PONV PONV - mechanical maintenance engineer: PONV - mechanical maintenance engineer Female Yes 03/22/25 14:35 HX of Motion Sickness No 03/22/25 14:35 HX of N/V After Surgery No 03/22/25 14:35 Non-Smoker Yes 03/22/25 14:35 Duration of Surgery greater Yes 03/22/25 14:35 than 60 minutes Number of Risk Factors 3 03/22/25 14:35 PONV Score Moderate Risk 03/22/25 14:35 Height & Weight Height & Weight: Anesthesia: Height & Weight Height 5 ft 8 in 08/28/24 11:49 Respiratory Assessment Respiratory Assessment - mechanical maintenance engineer: Respiratory Tract Infection Hx - mechanical maintenance engineer Hx Respiratory Tract Infection No 03/22/25 14:35 STOP Sleep Apnea STOP Sleep Apnea - mechanical maintenance engineer: STOP Sleep Apnea - mechanical maintenance engineer Hx Hypertension No 03/22/25 14:35 Hx Sleep Apnea No 03/22/25 14:35 CPAP No 03/22/25 14:35 BIPAP Do you snore loudly (louder No 03/22/25 14:35 than talking or can be heard Do you often feel tired/ No 03/22/25 14:35 fatigued/ sleepy during daytime? Has anyone observed you stop No 03/22/25 14:35 breathing during sleep? STOP Results Negative 03/22/25 14:35 QUESTION #5 FULL TEXT : Do you snore loudly (louder than talking or can be heard through closed doors)? 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 Specify any problems Hx of Preganancy in last 3 No 03/22/25 14:35 Months Nurse Filling Out Transfusion [email or web address] 03/22/25 14:35 & Questions: Date: 03/22/25 03/22/25 14:35 Time: 14:38 03/22/25 14:35 Patient unable to answer at this time (ie. confused, unrespo /Reproduction History /Reproductive History - mechanical maintenance engineer: /Reproductive Hx- mechanical maintenance engineer Hx Now Gestational Age (in weeks): EDC: Hx Hx Para Hx Section SAB No 03/22/25 14:35 Active Medications Active Medications: Current Medications Generic Name Dose Route Start Last Admin Trade Name Freq PRN Reason Stop Dose Admin Cefazolin Sodium 2 gm/ Sodium 110 mls @ 200 mls/hr 03/23/25 13:00 Chloride IV 03/23/25 13:32 INTRAOP ONE [facility] Medical History History of echocardiogram Loose, teeth Thyroid disease Hypotension Post-menopausal Back pain Injury of head and neck Dietary restriction Type 2 diabetes mellitus with foot ulcer Diabetes Former smoker Asthma Chronic ulcer of right foot due to diabetes mellitus Non-pressure 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 Infectious tenosynovitis Cellulitis of right lower limb MRSA bacteremia Acute osteomyelitis of left foot Diabetes mellitus with diabetic polyneuropathy Charcot's joint of right foot Narcolepsy Sleep disorder Allergies Hypothyroidism History of MRSA infection Weakness COVID-19 DKA, type 2 Malnutrition 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 Home Medications ?Medication ?Instructions ?Recorded ?Last Taken ?Type montelukast 10 mg tablet 10 mg PO QHS allergy 09/25/16 Unknown History (Singulair) ibuprofen 200 mg tablet (Advil) 400 mg PO BID pain 05/21/21 Unknown History levocetirizine 5 mg tablet 1 tab PO DAILY PRN Allergies 11/22/21 Unknown History levothyroxine 112 mcg tablet 112 mcg PO DAILY thyroi 02/09/24 Unknown History amoxicillin 500 mg-potassium 1 tab PO BID 08/28/24 Unknown History clavulanate 125 mg tablet armodafinil 250 mg tablet 150 mg PO BID narcalepsy 08/28/24 Unknown History baclofen 10 mg tablet 10 mg PO TID 08/28/24 Unknown History estradiol 0.01% (0.1 mg/gram) 1 appful vaginal SUWE estrogen 08/28/24 Unknown History vaginal cream liothyronine 25 mcg tablet 12.5 mcg PO DAILY 08/28/24 Unknown History doxycycline hyclate 100 mg capsule 100 mg PO BID 03/22/25 Unknown History insulin glargine-yfgn 100 unit/mL 29 unit subcut BID 03/22/25 Unknown History (3 mL) subcutaneous pen Allergy/AdvReac Type Severity Reaction Status Date / Time clindamycin Allergy Hives Verified 03/22/25 14:31 pregabalin (From Lyrica) Allergy Swelling Verified 03/22/25 14:31 bee venom protein (honey bee) AdvReac Anaphylaxis Verified 03/22/25 14:31 vancomycin AdvReac Other Verified 03/22/25 14:31 Family History Father CVA (cerebral vascular accident) Clotting disorder Seizures Mother Osteoarthritis Other Charcot's joint of right foot Diabetes Heart disease Hypertension Non-pressure chronic ulcer of other part of right foot with fat layer exposed Non-pressure 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 Type 2 diabetes mellitus with diabetic polyneuropathy Type 2 diabetes mellitus with foot ulcer Surgical History H/O uvulectomy History of incision and drainage (~02/10/24) History of incision and drainage S/P nasal septoplasty S/P right knee arthroscopy History of back surgery S/P tonsillectomy and adenoidectomy History of cholecystectomy History of ankle surgery Social History Smoking Status: Former smoker how long ago did patient quit smoking: Quit 1981. alcohol intake: current alcohol intake frequency: holidays/special occasions only substance use type: does not use Review of Systems (Anesthesia) ROS Narrative System reviewed and no additional complaints, except as documented.
[2025-03-23] MEDS: Lactated Ringers 1,000 ML 15 ML IV (12:13)
[2025-03-23] MEDS: Midazolam 2 MG/2 ML Syringe IV (12:45)
[2025-03-23] MEDS: Lactated Ringers 1,000 ML 1000 ML IV (12:54)
[2025-03-23] MEDS: Cefazolin 1 GM/5 ML Vial 2 GM IV (12:55)
[2025-03-23] MEDS: Lidocaine 1% (5 ml sdv) 5 ML Vial IV (12:58)
[2025-03-23] MEDS: fentaNYL 100 MCG/2 ML Ampul IV (12:58)
--- NOTE | 2025-03-23 13:00 | DEB_PTH ---
PATIENT: FREEMAN MOCTEZUMA LOC: MS3 U#:[id number] AGE/SX: 59/F ROOM: NV310 RE03/23/[address]: Dr. Jason Lewis DPM : 1965 BED: 1 DIS: 03/27/2025 SPEC #: [id number] RECD: 03/23/25 15:46 STATUS: WENDY REQ #: [id number] ROBBY: 03/23/25 13:[address]: Jason Lewis DEPT: SURGICAL PATHOLOGY RECD BY: Davonte Shi ENTERED: 03/26/25 09:17 SP TYPE: JACQUIE LAM DR: MD Dr. Mehul Sales MD Dr. William Lago, MD Tissues: A - Soft tissues, NOS Procedures: Surgery Specimen Level III HEADER OPERATION: Right foot incision and drainage PRE-OP DIAGNOSIS: Open wound, Charcot foot D/T DMII, complications TISSUE SUBMITTED: A- Right foot debrided tissue MICROSCOPIC DIAGNOSIS A. Right foot wound, debridement: - Fibrous tissue with granulation tissue, active chronic inflammation, and necrosis. MICROSCOPIC DESCRIPTION Slides are reviewed. GROSS DESCRIPTION A. Received in formalin labeled with the patient's name and date of . Designated as right foot debrided tissue is a 7.9 x 5.4 x 2.2 cm aggregate of renee-white to pink-red, irregular, rubbery tissue fragments and clotted blood. No definitive bone is identified. A few of the tissue fragments have possible necrosis. Revenue Specialist sections are submitted in 2 cassettes, to include the possible area of necrosis in cassette A2. PA 03/26/2025 CPT:10310
[2025-03-23] MEDS: Vancomycin IV 1,000 MG/20 ML Vial 2000 MG OPERA.SITE (13:51)
--- NOTE | 2025-03-23 15:17 | POSTOP.ANE_ITS ---
Anesthesia: Postop Eval I
--- NOTE | 2025-03-23 15:17 | PCM.POST.ANE ---
Anesthesia: Postop Eval I Current Vital Signs Temperature: 97.1 F Pulse Rate: 88 Blood Pressure: 139/88 Respiratory Rate: 20 Pulse Ox: 96 Oxygen Delivery Method: Room Air Assessment Airway patent: Yes Spontaneous unlabored respirations: Yes Mental status: Awake and Calm nausea: No Vomiting: No Anesthesia Complication: No Fluid Hydration Crystalloid volume administer (ml): 900 Total IV fluid infused: 900 Progress Note Anesthesia document: Postop Eval 1 completed: Yes
--- NOTE | 2025-03-23 15:34 | PCM.HP.STD ---
HPI - General General Date of Admission: 03/23/25 Date of Service: 03/23/25 Chief Complaint: Charcot foot with plantar abscess and wound HPI Narrative FREEMAN MOCTEZUMA, is a 59 F who presents to [facility] on 03/23/2025 for right foot swelling with possible abscess in the plantar foot. Patient had been following outpatient in the wound care center and was continuing to pack a very small ulceration which had measured 0.3 cm x 0.5 cm to the plantar forefoot. States that she developed continued increased swelling in the foot and general malaise. She had seen infectious disease who recommended obtaining updated MRI of the foot which was performed on 03/13/2025. MRI did demonstrate possible soft tissue abscess in the plantar foot measuring 4 x 5 cm. She was urged to return to podiatry for further evaluation and surgical intervention to drain the abscess. She was seen in office on 03/19/2025 and following discussion elected to come in for an I&D on 03/23/2025. Per infectious disease and PICC line requirement she was requested to stay and continue IV antibiotics over the weekend with PICC line placement to occur next week. [facility] Medical History History of echocardiogram Loose, teeth Thyroid disease Hypotension Post-menopausal Back pain Injury of head and neck Dietary restriction Type 2 diabetes mellitus with foot ulcer Diabetes Former smoker Asthma Chronic ulcer of right foot due to diabetes mellitus Non-pressure 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 Infectious tenosynovitis Cellulitis of right lower limb MRSA bacteremia Acute osteomyelitis of left foot Diabetes mellitus with diabetic polyneuropathy Charcot's joint of right foot Narcolepsy Sleep disorder Allergies Hypothyroidism History of MRSA infection Weakness COVID-19 DKA, type 2 Malnutrition 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 Home Medications ?Medication ?Instructions ?Recorded ?Last Taken ?Type montelukast 10 mg tablet 10 mg PO QHS allergy 09/25/16 03/22/25 History (Singulair) ibuprofen 200 mg tablet (Advil) 400 mg PO BID pain 05/21/21 03/19/25 History levocetirizine 5 mg tablet 1 tab PO DAILY PRN Allergies 11/22/21 03/22/25 History levothyroxine 112 mcg tablet 112 mcg PO DAILY thyroi 02/09/24 03/22/25 History amoxicillin 500 mg-potassium 1 tab PO BID 08/28/24 03/22/25 History clavulanate 125 mg tablet armodafinil 250 mg tablet 150 mg PO BID narcalepsy 08/28/24 03/22/25 History baclofen 10 mg tablet 10 mg PO TID 08/28/24 03/22/25 History estradiol 0.01% (0.1 mg/gram) 1 appful vaginal SUWE estrogen 08/28/24 03/21/25 History vaginal cream liothyronine 25 mcg tablet 12.5 mcg PO DAILY 08/28/24 03/22/25 History doxycycline hyclate 100 mg capsule 100 mg PO BID 03/22/25 03/22/25 History insulin glargine-yfgn 100 unit/mL 29 unit subcut BID 03/22/25 03/22/25 20:00 History (3 mL) subcutaneous pen 14 unit Allergy/AdvReac Type Severity Reaction Status Date / Time latex Allergy Mild Rash Verified 03/23/25 12:00 clindamycin Allergy Hives Verified 03/23/25 11:56 pregabalin (From Lyrica) Allergy Swelling Verified 03/23/25 11:56 bee venom protein (honey bee) AdvReac Anaphylaxis Verified 03/23/25 11:56 vancomycin AdvReac Other Verified 03/23/25 11:56 Family History Father CVA (cerebral vascular accident) Clotting disorder Seizures Mother Osteoarthritis Other Charcot's joint of right foot Diabetes Heart disease Hypertension Non-pressure chronic ulcer of other part of right foot with fat layer exposed Non-pressure 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 Type 2 diabetes mellitus with diabetic polyneuropathy Type 2 diabetes mellitus with foot ulcer Surgical History H/O uvulectomy History of incision and drainage (~02/10/24) History of incision and drainage S/P nasal septoplasty S/P right knee arthroscopy History of back surgery S/P tonsillectomy and adenoidectomy History of cholecystectomy History of ankle surgery Social History Smoking Status: Former smoker how long ago did patient quit smoking: Quit 1981. alcohol intake: current alcohol intake frequency: holidays/special occasions only substance use type: does not use ROS Constitutional Constitutional: Reports fever(s) and malaise; Denies chills Eyes Eyes: Denies diplopia or loss of vision ENT HEENT: Denies dysphagia, nasal congestion or rhinorrhea Cardiovascular Cardiovascular: Denies chest pain, claudication or palpitations Respiratory/Chest Respiratory/Chest: Denies cough, dyspnea or shortness of breath at rest Gastrointestinal Gastrointestinal: Denies abdominal pain, constipation, diarrhea, nausea or vomiting Genitourinary Genitourinary: Denies dysuria, hematuria or urinary urgency Musculoskeletal Musculoskeletal: Denies joint pain, joint stiffness or joint swelling Integumentary Integumentary: Denies jaundice, pruritus or rash Neurologic Neurologic: Denies dizziness, numbness or seizures Psychiatric Psychiatric: Denies anxiety or depression Hematologic/Lymphatic Hematologic/Lymphatic: Denies easy bleeding or easy bruising Allergic/Immunologic Allergic/Immunologic: Denies wheezing Vital Signs Vital Signs Vital Signs: 03/23/25 12:00 03/23/25 12:00 03/23/25 15:14 Temperature 97.7 F L 97.1 F L Temperature Source Temporal Temporal Pulse Rate 85 89 Respiratory Rate 18 16 Respiratory Pattern Normal Normal Blood Pressure 116/61 139/88 H Blood Pressure Mean 79 105 Blood Pressure Source Monitor Monitor Blood Pressure Position Semi-Fowlers Semi-Fowlers Blood Pressure Location Left Arm Right Arm Baseline BP 116/61 Pulse Ox 99 96 Oxygen Delivery Method Room Air Room Air 03/23/25 15:15 03/23/25 15:18 03/23/25 15:20 Temperature 97.1 F L Temperature Source Pulse Rate 91 88 91 Respiratory Rate 16 20 H 16 Respiratory Pattern Blood Pressure 140/86 H 139/88 H 140/86 H Blood Pressure Mean 104 104 Blood Pressure Source Monitor Monitor Blood Pressure Position Semi-Fowlers Semi-Fowlers Blood Pressure Location Right Arm Right Arm Baseline BP 116/61 116/61 Pulse Ox 98 96 100 Oxygen Delivery Method Room Air Room Air Room Air 03/23/25 15:30 Temperature Temperature Source Pulse Rate 86 Respiratory Rate 16 Respiratory Pattern Blood Pressure 132/85 H Blood Pressure Mean 100 Blood Pressure Source Monitor Blood Pressure Position Semi-Fowlers Blood Pressure Location Right Arm Baseline BP 116/61 Pulse Ox 100 Oxygen Delivery Method Room Air Weight Weight: 95 kg Body Mass Index (BMI) 31.8 Physical Exam Const alert, oriented x3 and no apparent distress General Appearance: cooperative HEENT Head and Scalp: normocephalic Eyes General Eye: normal appearance of both eyes Neck General: normal visual inspection Lymph Lymphatic: no lymphadenopathy noted and no lymphedema noted Resp normal respiratory effort Cardio regular rate and regular rhythm Extremity no calf tenderness Extremity Narrative: Right lower extremity: Vascular: DP and PT pulses palpable. CFT is less than 5 seconds digits. Normal temperature gradient. Hair growth to digits is diminished. Neurologic: Gross sensation is intact. Protective sensation is absent to the foot secondary to diabetic peripheral polyneuropathy. Musculoskeletal: Charcot foot deformity is appreciated to the right foot with rocker-bottom deformity and breakdown appreciated about the Lisfranc and Chopart joints. Muscle strength is 5/5 age-appropriate. There is decreased range of motion of the ankle joint dorsiflexion with knee extended without pain or crepitus. There is hypermobility at the Lisfranc/Chopart joint secondary to Charcot deformity and breakdown. No pain to palpation about the midfoot overlying the Charcot defect or about the plantar foot. Dermatologic: There is a small ulceration appreciated to the plantar lateral forefoot measuring 0.3 cm x 0.5 cm with intact packing of iodoform gauze. There is no local signs of infection about the ulcerative site. There is significant soft tissue swelling without erythema however there is palpable fluctuance to the plantar foot consistent with a likely soft tissue abscess. No purulence could be expressed proximally to the ulcerative site. However there was expressible blood. Skin no rashes or lesions noted Neuro moves all extremities Results Lab / Micro Data Labs: Laboratory Results - last 24 hr 03/23/25 11:55: POC Glucose 217 H Assessment & Plan Assessment/Plan (1) Non-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: (2) Type 2 diabetes mellitus with diabetic polyneuropathy: QUALIFIERS: Diabetes mellitus team supervisor insulin use: with team supervisor use Qualified Code(s): E11.42 - Type 2 diabetes mellitus with diabetic polyneuropathy; Z79.4 - halfway (current) use of insulin (3) Charcot's joint of right foot: (4) Type 2 diabetes mellitus with foot ulcer: QUALIFIERS: Diabetes mellitus team supervisor insulin use: with fdc use Qualified Code(s): E11.621 - Type 2 diabetes mellitus with foot ulcer; L97.509 - Non-pressure chronic ulcer of other part of unspecified foot with unspecified severity; Z79.4 - shuttle driver (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 With consent signed and obtained freely in office setting. Discussion was had with infectious disease, Dr. Rubio who requested the patient be admitted following procedure with plan for placement of PICC line next week. Procedure was performed in which it is noted no purulent drainage was expressible during entire time of procedure however there was noa blood in addition to coagulated blood and fat with chronic inflammatory changes of the surrounding tissue with consideration given to infected hematoma secondary to continued Charcot changes of the foot. Patient to be returned to floor following the surgical procedure to continue IV antibiotics Medicine team to be consulted for aiding in medical management, their collaboration greatly appreciated Infectious disease to be consulted for management of IV antibiotics in addition to PICC line placement Prior to closure 2 g of vancomycin powder was placed throughout the wound and surrounding tissues and site was packed with proximal tail exposed for removal next week. Current dressings on the foot are Betadine soaked Adaptic, 4 x 4 gauze, ABD x 3, Kerlix x 2, 4 inch Sebastian wrap and 6 inch Sebastian wrap rolled onto the right foot. She is to continue nonweightbearing status to the right lower extremity due to incision placement. I will continue to monitor and reevaluate on Wednesday morning. Jr. Susan Dent.[facility] [phone]
--- NOTE | 2025-03-23 15:56 | POSTOPAN2_ITS ---
Anesthesia Postop Eval I Sum
--- NOTE | 2025-03-23 15:56 | PCM.POSTANE2 ---
Anesthesia Postop Eval I Sum Postop Eval Completion status Anesthesia document: Postop Eval 1 completed: Yes Anesthesia Postop Eval I Summary Anesthesia Postop Eval I Summary: Anesthesia Postop Eval I: Assessment Summary Airway patent Yes 03/23/25 15:18 [email or web address] Spontaneous unlabored Yes 03/23/25 15:18 [email or web address] respirations Mental status Awake,Calm 03/23/25 15:18 [email or web address] nausea No 03/23/25 15:18 [email or web address] Vomiting No 03/23/25 15:18 [email or web address] Anesthesia Postop Eval I: Fluid Summary Crystalloid volume administer 900 03/23/25 15:18 [email or web address] (ml) Colloids volume administered ( ml) Blood Product volume administered (ml) Total IV fluid infused 900 03/23/25 15:18 [email or web address] Anesthesia Postop Eval I: Summary Notes Anesthesia Complication No 03/23/25 15:18 [email or web address] Anesthesia Complication Comment: Post-operative progress note Anesthesia: Postop Eval II Evaluation Mental status: Awake Pain Level: 0 nausea: No Vomiting: No
--- NOTE | 2025-03-23 16:00 | OP.PCM_ITS ---
Operative Report (Standard)
--- NOTE | 2025-03-23 16:00 | PCM.OPRPT ---
Operative Report (Standard) Operative Information Date of Procedure: 03/23/25 Pre-Operative Diagnosis: 1. Nonpressure ulceration plantar foot to the level of muscle 2. Charcot joints with deformity right foot 3. DM type II with peripheral polyneuropathy 4. DM type II with right foot ulceration Post-Operative Diagnosis: 1. Nonpressure ulceration plantar foot to the level of muscle 2. Infected hematoma plantar right foot 3. Charcot joints with deformity right foot 4. DM type II with peripheral polyneuropathy 5. DM type II with right foot ulceration Surgery/Procedure Performed: 1. Incision and drainage with wide debridement and evacuation of infected hematoma of the right foot sales exec: Yes Cleaner Laboratory Equipment: Dr. Titi Luther, DPM PGY-1 Tasks completed by first sampler: Opening & closing, Dissecting tissue, Removing tissue and Retracting Additional data analysis assistant?: No Type of Anesthesia: General/Regional (Popliteal block by anesthesia team) RN Documented Start/Stop Times: Operation Date: 03/23/25 13:00 Case Time Into Pre-Op 03/23/25 11:37 Anesthesia Start 03/23/25 12:53 Into Room 03/23/25 12:53 Procedure Start 03/23/25 13:30 Procedure End 03/23/25 15:06 Anesthesia End 03/23/25 15:12 Into Recovery 03/23/25 15:12 Out of Room 03/23/25 15:12 Procedure Start Time: 13:30 Procedure Stop Time: 15:06 Select all DRAINS/GRAFTS/IMPLANTS that apply: None Estimated Blood Loss: 50 mL Specimen collected: Yes Description of specimen(s) removed: Culture swabs aerobic and anaerobic right foot; tissue right foot Description of surgery: HPI/indication: Patient is a 59-year-old female who had been following in the wound care center for plantar right foot ulceration. She had been packing the ulceration site and had seemed to been improving however developed increased soft tissue swelling and more pain to the plantar foot which she had contributed to possible Charcot event however did have general malaise and some off-and-on fevers thus she did see infectious disease, Dr. Rubio who did start her back on oral doxycycline and did update new MRI on 03/13/2025 which demonstrated possible soft tissue abscess in the plantar foot thus he did recommend follow-up with podiatry for surgical intervention. She did see me in office on 03/19/2025 and discussion of MRI was had in addition to surgical planning. Risks and complications were discussed with the patient. And patient was understanding of these. Patient voiced request of only performing the I&D with no amputation of the foot or leg. Patient requested to undergo I&D of the site in outpatient setting as she wanted to go home for recovery and not end up in a SNF and have large medical bills to pay. We had discussed placement of a PICC line however following her discussion with infectious disease later in the week she did decide to change her mind to be admitted following the procedure. Surgical consent was signed in office setting under patient's own free will. Surgical site was marked prior to entering the OR. She was scheduled to undergo I&D of the right foot at [facility] on 03/23/2025. Procedure: Prior to entering the OR she did undergo popliteal block by the anesthesia team. Patient was then brought to the operating room under mild sedation and placed on the table in the supine position. [place] bump was placed under the right hip. Patient was secured to table with safety belt. Pneumatic calf tourniquet was placed about the patient's right calf. Right foot was then scrubbed, prepped and draped in usual aseptic manner. Right foot was elevated and the pneumatic calf tourniquet was inflated to 250 mmHg. Attention was directed to the right foot plantar aspect where there was a small ulceration measuring 0.3 cm x 0.5 cm to the plantar lateral forefoot underlying region of 3rd and 4th metatarsal necks. Linear incision was made proximal to distal encompassing the ulcerative site and extended proximally towards the plantar tubercles of the calcaneus. Incision was deepened via sharp and blunt dissection. Upon deepening of the incision and entering through the plantar fascia a large partially coagulated hematoma was evacuated with multiple fatty/tissue fragments. No evidence of purulent drainage was encountered during the procedure. Roughly 50 cc total was evacuated from the plantar foot from both sites confirmed on the MRI. Soft tissue was inspected and cultures were obtained for aerobic and anaerobic via swab and sent to microbiology. Next, portions of the coagulated hematoma in addition to fatty soft tissue fragments were collected and sent to microbiology for analysis and pathology for analysis. Site was debrided utilizing sharp dissection and rongeur to remove multiple fatty fragments and multiple coagulations of the hematoma. There was some scant necrotic tissue about the original ulcerative site which was sharply debrided. Ulcerative site was excised and discarded per policy. The site then underwent irrigation via 3000 cc pulse lavage. Following completion of the first round of irrigation the tissue was reinspected and noted to be firm, healthy, and bleeding with no signs of necrosis or purulent drainage. Tissue however did demonstrate chronic inflammatory changes most likely from the hematoma collection however infected hematoma cannot be ruled out. Further debridement of all nonviable chronic inflammatory tissue was performed and the site then underwent second round of 3000 cc pulse lavage irrigation to total 6000 cc. 2 g of vancomycin powder was then placed throughout the tissue. 1 inch iodoform packing gauze was placed throughout the foot at the areas of previous hematoma collection with the tail portion sticking out at the proximal forefoot. Deep tissues were then closed utilizing 0 Vicryl in simple fashion. Subcutaneous tissue closed utilizing 4-0 Monocryl. Skin was reapproximated utilizing 2-0 Prolene in simple interrupted fashion with a portion of the iodoform packing gauze remaining for removal at later date. Pneumatic calf tourniquet was deflated with a prompt hyperemic response noted to the digits of the foot. Incision site was then dressed with Betadine soaked Adaptic, 4 x 4 gauze, ABD x 3, Kerlix x 2, 4 inch Sebastian wrap, and 6 inch Sebastian wrap rolled onto the right foot. Patient tolerated the procedure and anesthesia well and was transferred to PACU with vital signs stable vascular status intact to the right foot. Following protocol of PACU she will then be admitted to the floor to continue IV antibiotics and for placement of PICC line per ID early next week. She is to continue to elevate the right foot at all times of rest for postoperative edema control. She is to continue to keep all dressings clean, dry, and intact to the right foot. She will remain nonweightbearing to the right lower extremity secondary to incision placement. Dressings to the right foot to remain intact and I will reevaluate on Wednesday. Surgical Findings: See operative note for findings Complications Complications: No Admit VTE Documentation VTE Present on Admission: No VTE Mechan Device Prophylaxis: SCD's VTE Pharm Prophylaxis ordered?: No Reason prophylaxis not ordered: Treatment Not Indicated
--- NOTE | 2025-03-23 18:23 | CASEMGMT ---
RN RONNIE farmworker pullet farm CM to room to meet with patient for initial transition planning/care coordination assessment. RN RONNIE introduced self and role at [facility], pt voices understanding. Pt is A&O & resting in bed. Pt daughter, Erika, and 2 granddaughters are at bedside. Pt agreeable to them all being present during assessment. Care providers, pharmacy, and demographics verified. PCP: Dr Cuong Barros Specialists: Dr Lewis-podiatry, Dr Rubio-ID, Dr Joshua-pain mgnt. Dr Herrera-@ Wound Center-pt goes weekly on . Preferred Pharmacy: [facility] @ discharge. Otherwise, goes to [facility] Insurance: [employer] Prescription Benefit: Yes LNOK: Erika Falk (Rai) Living Arrangements: Pt lives along in a one-story home with basement and 4 steps to enter. Pt is independent w/ADL's and IADL's @ baseline and manages her own medications. Granddaughter does assist some w/laundry, as washer and dryer are in the basement. Pt's daughter, Erika, is a nurse and comes daily to do dressing changes and stays w/spends a lot of time w/pt. Daughter is very supportive and plans to continue to assist w/wound care/dsg changes, IV atb's @ home, meal preparation, and any other needs pt may have. Transportation: Self, daughter DME: Functioning [employer] w/sufficient supplies. Shower chair. Raised toilet. Grab bars. FWW. BSC. W/C. Transport chair. Knee scooter. Crutches. Foot Brace. Daughter is looking into getting a ramp and is interested in information. Pt and daughter deny need for other DME. Insulin: Pt states she has sufficient supply of insulin and pen needles. HHC/SNF: Hx with [facility] and [facility]. SNF Hx at [facility] (States had a poor experience) and [facility] Wound: Daughter (who is an WEB SUPPORT ENGINEER) comes daily for wound care/dressing changes and plans to continue to do this. Discussed discharge planning. Plan is for PICC to be placed next week and anticipate need for IV atb's @ discharge per pt. Pt wishes to discharge home and would like HHC. A list of C providers including quality and resource use data and consistent with the patient?s preferred geographic region, medical needs, and insurance network were provided from the [employer] Guide. Pt's 1st preference is [facility], 2nd is [facility], 3rd is [facility]. Call placed to [facility]. VM left w/referral. Pt has done IV atb's @ home in the past & used [facility] for IV atb's & supplies. She would like to use them again. Pt and daughter deny having further discharge needs or concerns at this time. Plan: Home w/HHC: SN for wound care and probable IV atb's. [facility] for infusion Co. PT eval and treat Keily PEREZN RN CM
--- NOTE | 2025-03-23 18:26 | PN.HOSP_ITS ---
Reason for Visit
--- NOTE | 2025-03-23 18:26 | PCM.PN.HOSP ---
Reason for Visit Chief Complaint: Charcot foot with plantar abscess and wound Subjective Subjective Consult requested by Dr. Lewis for postoperative medical management Patient seen postoperatively. Patient had been dealing with her right ankle for some time and had been on antibiotics. Whenever she was started going off antibiotic she started developing a fever up to 103 ?F. She was seen by infectious disease who recommended IV antibiotics and a PICC line for this coming week. Underwent surgery today with Dr. Lewis. She underwent an incision and drainage with wide debridement and evacuation of infected hematoma of the right foot. Currently her right foot is numb secondary to the nerve block Objective Data Objective Data Vital Signs: Vital Signs Temp Pulse Resp BP Pulse Ox O2 Del Method 36.7 C 76 16 119/60 97 Room Air 03/23/25 18:10 03/23/25 18:10 03/23/25 18:10 03/23/25 18:10 03/23/25 18:10 03/23/25 16:41 Oxygen Delivery Method Room Air Weight: 95 kg Body Mass Index (BMI) 31.8 Intake & Output: Intake and Output for Last 24 Hours 03/21/25 03/22/25 03/23/25 23:59 23:59 23:59 Intake Total 1000 / 1000 Output Total 50 / 50 Balance 950 / 950 Lab / Micro Data Labs: Laboratory Results - last 24 hr 03/23/25 11:55: POC Glucose 217 H 03/23/25 15:35: POC Glucose 166 H Micro: Microbiology 03/22/25 13:40 Incision/Surgical Site Gram Stain - Final Physical Exam Const alert and no apparent distress Constitutional Narrative: In bed. No acute distress and afebrile. HEENT head/scalp atraumatic and moist oral mucous membranes Resp normal respiratory effort, no retractions, no use of accessory muscles and clear to auscultation bilaterally Cardio regular rate, regular rhythm, S1 normal heart sound and S2 normal heart sound GI normal to inspection, nondistended, normoactive bowel sounds, soft to palpation, non-tender and non-distended Extremity Extremity Narrative: Right foot and ankle bandaged to the toes. Assessment & Plan Assessment/Plan (1) Infected hematoma: PLAN: Status post incision and drainage on 23 March. Weightbearing and activity per podiatry and further wound management per podiatry. Patient had been on Augmentin as well as doxycycline as outpatient. Patient has a noted allergy to vancomycin so patient will be on linezolid as well as pip-tazo. Infectious disease has been consulted. Cultures performed in the ER and are pending (2) Diabetes mellitus type 2, uncontrolled: PLAN: Continue with her glargine. Add sliding scale insulin. Check an A1c PLAN: Plan Narcolepsy: Continue with modafinil Hypothyroidism: Continue levothyroxine levothyronine VTE prophylaxis: Defer to the primary service Thank you for the consult. The hospital service will follow along during this patient's hospitalization. Charges/Coding Visit Charges Inpatient E&M: 37463 Subs Hosp L2
[2025-03-23] MEDS: Linezolid 600 MG 600 MG/300 ML BAG 200 MG IV (22:21)
[2025-03-23] MEDS: Piperacil/Tazobactam 3.375 GM in 0.9% Normal Saline (50mL MB+) 50 ML IV (22:22)
[2025-03-23] MEDS: 0.9% Saline Lock 10 ML Syringe IV (22:29)
[2025-03-23] MEDS: 0.9% Normal Saline (250mL Bag) 250 ML 15 ML IV (22:29)
[2025-03-23] MEDS: Insulin Glargine-YFGN 100 UNIT/ML Pen 29 UNIT SC (22:33)
[2025-03-24 00:35] VITALS: BP 122/68; PULSE 65; RESP 16; TEMP 36.6; O2SAT 98
[2025-03-24 04:35] VITALS: BP 117/59; PULSE 62; RESP 14; TEMP 36.5; O2SAT 97
[2025-03-24 04:37] LABS: Hematocrit 30.7 % (37-47); Hemoglobin 9.8 g/dL (12.0-15.0); Immature Granulocytes Count 0.080 X10^3/uL (0.0-0.0); Mean Corp Hgb Conc 31.9 g/dL (32-36); Mean Corpuscular Volume 86.7 fL (81-99); Mean Platelet Vol. 9.4 fl (6.2-12.0); NRBC Flagged by Analyzer 0 % (0-5); Platelet Count 363 K/mm3 (150-450); RBC Distribution Width CV 15.0 % (11.6-14.6); RBC Distribution Width SD 48.2 fl (35.1-43.9); Red Blood Count 3.54 M/mm3 (4.2-5.4); White Blood Count 13.2 K/mm3 (4.4-11.0)
[2025-03-24 05:06] LABS: Anion Gap 14 (5-15); BUN 18 mg/dL (4-19); BUN/Creat Ratio 19.6 RATIO (10-20); Calcium,Total 8.5 mg/dL (7.6-11.0); Carbon Dioxide 20.1 mmol/L (21.0-32.0); Chloride 100 mmol/L (98-108); Estimated Creatinine Clearance 79.23 ml/min (50-250); Glucose 360 mg/dL (70-99); Potassium 3.8 mmol/L (3.3-5.1)
[2025-03-24] MEDS: Piperacil/Tazobactam 3.375 GM in 0.9% Normal Saline (50mL MB+) 50 ML IV ×3 (06:27→22:41)
[2025-03-24 08:04] VITALS: BP 113/54; PULSE 61; RESP 16; TEMP 36.4; O2SAT 98
[2025-03-24] MEDS: Insulin Glargine-YFGN 100 UNIT/ML Pen 29 UNIT SC ×2 (08:44→23:04)
--- NOTE | 2025-03-24 10:12 | PCM.PN.HOSP ---
Subjective Subjective Pain is managed, no issues overnight Objective Data Objective Data Vital Signs: Vital Signs Temp Pulse Resp BP Pulse Ox O2 Del Method 97.5 F L 61 16 113/54 L 98 Room Air 03/24/25 08:04 03/24/25 08:04 03/24/25 08:04 03/24/25 08:04 03/24/25 08:04 03/24/25 08:05 Oxygen Delivery Method Room Air Weight: 209 lb 7.026 oz Body Mass Index (BMI) 31.8 Intake & Output: Intake and Output for Last 24 Hours 03/23/25 03/24/25 03/25/25 03:59 03:59 02:59 Intake Total 1350 / 1350 Output Total 50 / 50 Balance 1300 / 1300 Lab / Micro Data 03/24/25 03:50 03/24/25 03:50 Labs: Laboratory Results - last 24 hr 03/23/25 11:55: POC Glucose 217 H 03/23/25 15:35: POC Glucose 166 H 03/23/25 22:31: POC Glucose 421 H 03/24/25 03:50: WBC 13.2 H, RBC 3.54 L, Hgb 9.8 L, Hct 30.7 L, MCV 86.7, MCH 27.7, MCHC 31.9 L, RDW Std Deviation 48.2 H, RDW Coeff of Amos 15.0 H, Plt Count 363, MPV 9.4, Immature Gran % (Auto) 0.600, Neut % (Auto) 77.5 H, Lymph % (Auto) 15.6 L, Haakon % (Auto) 5.6, Eos % (Auto) 0.2, Baso % (Auto) 0.5, Absolute Neuts (auto) 10.3 H, Absolute Lymphs (auto) 2.06, Nucleated RBC % 0, Sodium 134, Potassium 3.8, Chloride 100, Carbon Dioxide 20.1 L, Anion Gap 14, BUN 18, Creatinine 0.91, Estim Creat Clear Calc 79.23, Est GFR (MDRD) Non-Af 73, BUN/Creatinine Ratio 19.6, Glucose 360 H, Hemoglobin A1c 8.4 H, Calcium 8.5 03/24/25 06:31: POC Glucose 283 H Micro: Microbiology 03/22/25 13:40 Incision/Surgical Site Gram Stain - Final Physical Exam Narrative General: Alert, Oriented x3, Cooperative, No apparent distress HEENT: Atraumatic, PERRLA, EOMI, Normocephalic Oral: Moist Mucosa Neck: Supple, No JVD Lungs: Diminished, Normal air movement, No rhonchi, No wheeze, No rales Cardiovascular: Regular rate, Regular Rhythm, Normal S1, Normal S2, No murmurs Abdomen: Soft, Non Tender, Non-Distended, No Hepato-splenomegaly Extremities: No edema, Capillary Refill Less than 3 Seconds Skin: Lower extremity is dressed and wrapped Musculoskeletal: No Tenderness to Palpation of Joints or Extremities Neurological: No focal neurological deficits, moves all extremities, sensations diminished Psych/Mental Status: Normal Affect, Appropriate Assessment & Plan Assessment/Plan (1) Infected hematoma: (2) Diabetes mellitus type 2, uncontrolled: PLAN: Plan 1. Infected hematoma in the setting of type 2 diabetes with Charcot foot status postsurgical intervention on 03/23/2025 ? Appreciate infectious disease assistance, continue with broad-spectrum antibiotics pending wound cultures ? Sliding scale insulin ? Accu-Cheks ? Will monitor make adjustments as necessary ? Continue with long-acting insulin ? She was on Augmentin and doxycycline for this issue as an outpatient 2. Narcolepsy ? Stable ? Unfortunately her medication is nonformulary but she is okay with not taking it while here 3. Hypothyroidism ? Stable ? Continue with her home medications DVT: Lovenox Charges/Coding Visit Charges Inpatient E&M: 44892 Subs Hosp L2
[2025-03-24] MEDS: Linezolid 600 MG 600 MG/300 ML BAG 200 MG IV ×2 (10:45→22:42)
--- NOTE | 2025-03-24 12:13 | CASEMGMT ---
Social Work- SW met with pt to provide ramp resources. SW introduced self and role; pt agreeable to meet. SW provided support and education. SW remains available to follow. WHITNEY Islas
[2025-03-24 14:11] VITALS: BP 120/56; PULSE 79; RESP 17; TEMP 36.8; O2SAT 98
[2025-03-24 22:32] VITALS: BP 109/55; PULSE 83; RESP 15; TEMP 36.8; O2SAT 99
[2025-03-24] MEDS: 0.9% Saline Lock 10 ML Syringe IV (22:42)
[2025-03-25 02:41] VITALS: BP 119/61; PULSE 75; RESP 15; TEMP 37.1; O2SAT 95
[2025-03-25] MEDS: Piperacil/Tazobactam 3.375 GM in 0.9% Normal Saline (50mL MB+) 50 ML IV ×3 (06:34→22:11)
[2025-03-25 07:12] LABS: Hematocrit 33.2 % (37-47); Hemoglobin 10.7 g/dL (12.0-15.0); Immature Granulocytes Count 0.070 X10^3/uL (0.0-0.0); Mean Corp Hgb Conc 32.2 g/dL (32-36); Mean Corpuscular Volume 87.4 fL (81-99); Mean Platelet Vol. 9.2 fl (6.2-12.0); NRBC Flagged by Analyzer 0 % (0-5); Platelet Count 391 K/mm3 (150-450); RBC Distribution Width CV 15.3 % (11.6-14.6); RBC Distribution Width SD 49.0 fl (35.1-43.9); Red Blood Count 3.80 M/mm3 (4.2-5.4); White Blood Count 11.3 K/mm3 (4.4-11.0)
[2025-03-25 07:37] LABS: Anion Gap 13 (5-15); BUN 13 mg/dL (4-19); BUN/Creat Ratio 17.3 RATIO (10-20); Calcium,Total 8.6 mg/dL (7.6-11.0); Carbon Dioxide 21.2 mmol/L (21.0-32.0); Chloride 105 mmol/L (98-108); Estimated Creatinine Clearance 98.77 ml/min (50-250); Glucose 174 mg/dL (70-99); Potassium 4.2 mmol/L (3.3-5.1)
[2025-03-25 09:00] VITALS: BP 114/58; PULSE 66; RESP 14; TEMP 36.6; O2SAT 93
--- NOTE | 2025-03-25 09:12 | PCM.PN.HOSP ---
Subjective Subjective Doing well, pain is controlled Objective Data Objective Data Vital Signs: Vital Signs Temp Pulse Resp BP Pulse Ox O2 Del Method 98.7 F 75 15 119/61 95 Room Air 03/25/25 02:41 03/25/25 02:41 03/25/25 02:41 03/25/25 02:41 03/25/25 02:41 03/25/25 08:20 Oxygen Delivery Method Room Air Weight: 209 lb 7.026 oz Body Mass Index (BMI) 31.8 Intake & Output: Intake and Output for Last 24 Hours 03/24/25 03/25/25 03/26/25 03:59 02:59 03:59 Intake Total 1350 / 1350 1000.00 / 1000.00 Output Total 50 / 50 Balance 1300 / 1300 1000.00 / 1000.00 Lab / Micro Data 03/25/25 06:38 03/25/25 06:38 Labs: Laboratory Results - last 24 hr 03/24/25 10:48: POC Glucose 321 H 03/24/25 15:57: POC Glucose 240 H 03/24/25 22:59: POC Glucose 266 H 03/25/25 06:38: WBC 11.3 H, RBC 3.80 L, Hgb 10.7 L, Hct 33.2 L, MCV 87.4, MCH 28.2, MCHC 32.2, RDW Std Deviation 49.0 H, RDW Coeff of Amos 15.3 H, Plt Count 391, MPV 9.2, Immature Gran % (Auto) 0.600, Neut % (Auto) 64.1, Lymph % (Auto) 26.0, Shannon % (Auto) 5.3, Eos % (Auto) 3.3, Baso % (Auto) 0.7, Absolute Neuts (auto) 7.3, Absolute Lymphs (auto) 2.95, Nucleated RBC % 0, Sodium 139, Potassium 4.2, Chloride 105, Carbon Dioxide 21.2, Anion Gap 13, BUN 13, Creatinine 0.73, Estim Creat Clear Calc 98.77, Est GFR (MDRD) Non-Af 94, BUN/Creatinine Ratio 17.3, Glucose 174 H, Calcium 8.6 03/25/25 06:44: POC Glucose 168 H Micro: Microbiology 03/22/25 13:40 Incision/Surgical Site Gram Stain - Final 03/22/25 13:40 Incision/Surgical Site Wound Culture - Preliminary No growth-Final to follow Physical Exam Narrative General: Alert, Oriented x3, Cooperative, No apparent distress HEENT: Atraumatic, PERRLA, EOMI, Normocephalic Oral: Moist Mucosa Neck: Supple, No JVD Lungs: Diminished, Normal air movement, No rhonchi, No wheeze, No rales Cardiovascular: Regular rate, Regular Rhythm, Normal S1, Normal S2, No murmurs Abdomen: Soft, Non Tender, Non-Distended, No Hepato-splenomegaly Extremities: No edema, Capillary Refill Less than 3 Seconds Skin: Lower extremity is dressed and wrapped Musculoskeletal: No Tenderness to Palpation of Joints or Extremities Neurological: No focal neurological deficits, moves all extremities, sensations diminished Psych/Mental Status: Normal Affect, Appropriate Assessment & Plan Assessment/Plan (1) Infected hematoma: (2) Diabetes mellitus type 2, uncontrolled: PLAN: Plan 1. Infected hematoma in the setting of type 2 diabetes with Charcot foot status postsurgical intervention on 03/23/2025 ? Appreciate infectious disease assistance, continue with broad-spectrum antibiotics pending wound cultures ? Sliding scale insulin ? Accu-Cheks ? Will monitor make adjustments as necessary ? Continue with long-acting insulin ? She was on Augmentin and doxycycline for this issue as an outpatient 2. Narcolepsy ? Stable ? Unfortunately her medication is nonformulary but she is okay with not taking it while here 3. Hypothyroidism ? Stable ? Continue with her home medications DVT: Lovenox Charges/Coding Visit Charges Inpatient E&M: 85610 Subs Hosp L2
[2025-03-25] MEDS: Linezolid 600 MG 600 MG/300 ML BAG 200 MG IV ×2 (11:46→22:12)
[2025-03-25] MEDS: Insulin Glargine-YFGN 100 UNIT/ML Pen 29 UNIT SC ×2 (11:50→22:09)
[2025-03-25 15:15] VITALS: BP 113/56; PULSE 82; RESP 16; TEMP 36.8; O2SAT 97
[2025-03-25] MEDS: 0.9% Normal Saline (250mL Bag) 250 ML 15 ML IV (16:57)
[2025-03-25 21:00] VITALS: BP 139/64; PULSE 86; RESP 16; TEMP 37.3; O2SAT 97
[2025-03-25] MEDS: 0.9% Saline Lock 10 ML Syringe IV (22:12)
[2025-03-26 05:00] VITALS: BP 136/70; PULSE 73; RESP 18; TEMP 36.4; O2SAT 97
[2025-03-26] MEDS: Piperacil/Tazobactam 3.375 GM in 0.9% Normal Saline (50mL MB+) 50 ML IV ×3 (05:20→22:32)
[2025-03-26 07:46] LABS: Hematocrit 32.7 % (37-47); Hemoglobin 10.7 g/dL (12.0-15.0); Immature Granulocytes Count 0.070 X10^3/uL (0.0-0.0); Mean Corp Hgb Conc 32.7 g/dL (32-36); Mean Corpuscular Volume 87.2 fL (81-99); Mean Platelet Vol. 9.1 fl (6.2-12.0); NRBC Flagged by Analyzer 0 % (0-5); Platelet Count 382 K/mm3 (150-450); RBC Distribution Width CV 15.4 % (11.6-14.6); RBC Distribution Width SD 49.3 fl (35.1-43.9); Red Blood Count 3.75 M/mm3 (4.2-5.4); White Blood Count 9.7 K/mm3 (4.4-11.0)
--- NOTE | 2025-03-26 08:17 | PCM.PROGNOTE ---
Subjective Subjective Patient seen this AM resting in bed with foot elevated. Has continued non-weight bearing to Right foot with assistance of walker. Denies N/V/chills. Reports low grade fever following surgery but no longer feels feverish. Denies pain to foot this morning. Objective Data Objective Data Vital Signs: Vital Signs Temp Pulse Resp BP Pulse Ox O2 Del Method 97.5 F L 73 18 136/70 H 97 Room Air 03/26/25 05:00 03/26/25 05:00 03/26/25 05:00 03/26/25 05:00 03/26/25 05:00 03/26/25 05:00 Oxygen Delivery Method Room Air Weight: 95 kg Body Mass Index (BMI) 31.8 Intake & Output: Intake and Output for Last 24 Hours 03/24/25 03/25/25 03/26/25 23:59 22:59 23:59 Intake Total 600.75 / 600.75 1150.50 / 1150.50 50 / 50 Balance 600.75 / 600.75 1150.50 / 1150.50 50 / 50 Lab / Micro Data 03/26/25 07:04 03/25/25 06:38 Labs: Laboratory Results - last 24 hr 03/25/25 11:50: POC Glucose 202 H 03/25/25 16:49: POC Glucose 240 H 03/25/25 22:06: POC Glucose 258 H 03/26/25 06:29: POC Glucose 191 H 03/26/25 07:04: WBC 9.7, RBC 3.75 L, Hgb 10.7 L, Hct 32.7 L, MCV 87.2, MCH 28.5, MCHC 32.7, RDW Std Deviation 49.3 H, RDW Coeff of Amos 15.4 H, Plt Count 382, MPV 9.1, Immature Gran % (Auto) 0.700, Neut % (Auto) 66.2, Lymph % (Auto) 23.0, [place] % (Auto) 5.7, Eos % (Auto) 3.7, Baso % (Auto) 0.7, Absolute Neuts (auto) 6.4, Absolute Lymphs (auto) 2.24, Nucleated RBC % 0 Micro: Microbiology 03/22/25 13:40 Incision/Surgical Site Gram Stain - Final 03/22/25 13:40 Incision/Surgical Site Wound Culture - Preliminary No growth-Final to follow 03/22/25 13:40 Incision/Surgical Site Anaerobic Culture - Preliminary No growth in 48 hours. Physical Exam Const alert, oriented x3 and no apparent distress General Appearance: cooperative Eyes General Eye: normal appearance of both eyes Neck General: normal visual inspection Lymph Lymphatic: no lymphadenopathy noted and no lymphedema noted Resp normal respiratory effort Cardio regular rate and regular rhythm Extremity no calf tenderness Extremity Narrative: Right lower extremity: Vascular: DP and PT pulses palpable. CFT is less than 5 seconds digits. Normal temperature gradient. Hair growth to digits is diminished. Neurologic: Gross sensation is intact. Protective sensation is absent to the foot secondary to diabetic peripheral polyneuropathy. Musculoskeletal: Charcot foot deformity is appreciated to the right foot with rocker-bottom deformity and breakdown appreciated about the Lisfranc and Chopart joints. Muscle strength is 5/5 age-appropriate. There is decreased range of motion of the ankle joint dorsiflexion with knee extended without pain or crepitus. There is hypermobility at the Lisfranc/Chopart joint secondary to Charcot deformity and breakdown. No pain to palpation about the midfoot overlying the Charcot defect or about the plantar foot. Dermatologic: Sutures intact to plantar foot. No signs of infection. Iodoform packing intact between region of sutures at proximal foot. No purulence could be expressed proximally to the packing site following removal. However there was expressible blood. Skin no rashes or lesions noted Neuro moves all extremities Assessment & Plan Assessment/Plan (1) Non-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: (2) Type 2 diabetes mellitus with diabetic polyneuropathy: QUALIFIERS: Diabetes mellitus termite exterminator helper insulin use: with termite exterminator helper use Qualified Code(s): E11.42 - Type 2 diabetes mellitus with diabetic polyneuropathy; Z79.4 - intermediate (current) use of insulin (3) Charcot's joint of right foot: (4) Type 2 diabetes mellitus with foot ulcer: QUALIFIERS: Diabetes mellitus assisted insulin use: with assisted use Qualified Code(s): E11.621 - Type 2 diabetes mellitus with foot ulcer; L97.509 - Non-pressure chronic ulcer of other part of unspecified foot with unspecified severity; Z79.4 - intermediate (current) use of insulin (5) Infected hematoma: PLAN: Plan Patient seen and evaluated She is s/p I&D of possible infected hematoma of the Right foot. DOS: 03/23/25. POD # 3 Site inspected. Sutures intact to plantar foot. No signs of infection. Iodoform packing intact between region of sutures at proximal foot. No purulence could be expressed proximally to the packing site following removal. However there was expressible blood following removal of the packing. Procedure on 03/23 was performed in which it is noted no purulent drainage was expressible during entire time of procedure however there was noa blood in addition to coagulated blood and fat with chronic inflammatory changes of the surrounding tissue with consideration given to infected hematoma secondary to continued Charcot changes of the foot. She will continue IV antibiotics. Linezolid and Zyvox Medicine team following for aiding in medical management, their collaboration greatly appreciated Infectious disease following for management of IV antibiotics in addition to PICC line placement Current dressings on the foot are Betadine soaked Adaptic, 4 x 4 gauze, ABD x 3, Kerlix x 2, 4 inch Sebastian wrap and 6 inch Sebastian wrap rolled onto the right foot. Nursing to change daily. She is to continue nonweightbearing status to the right lower extremity due to incision placement with assistance of walker. I will continue to monitor. Once stable and PICC line placed she may be d/c home with home health to assist in dressing changes. Jr. Susan Dent.P.M. [facility] [phone]
[2025-03-26 08:40] LABS: Anion Gap 12 (5-15); BUN 12 mg/dL (4-19); BUN/Creat Ratio 17.9 RATIO (10-20); Calcium,Total 8.9 mg/dL (7.6-11.0); Carbon Dioxide 22.4 mmol/L (21.0-32.0); Chloride 105 mmol/L (98-108); Estimated Creatinine Clearance 112.65 ml/min (50-250); Glucose 183 mg/dL (70-99); Potassium 3.9 mmol/L (3.3-5.1)
--- NOTE | 2025-03-26 08:55 | PCM.PN.HOSP ---
Subjective Subjective Doing well, no issues overnight. Pain is controlled. Objective Data Objective Data Vital Signs: Vital Signs Temp Pulse Resp BP Pulse Ox O2 Del Method 97.5 F L 73 18 136/70 H 97 Room Air 03/26/25 05:00 03/26/25 05:00 03/26/25 05:00 03/26/25 05:00 03/26/25 05:00 03/26/25 05:00 Oxygen Delivery Method Room Air Weight: 209 lb 7.026 oz Body Mass Index (BMI) 31.8 Intake & Output: Intake and Output for Last 24 Hours 03/25/25 03/26/25 03/27/25 02:59 03:59 03:59 Intake Total 1000.00 / 1000.00 751.25 / 751.25 Balance 1000.00 / 1000.00 751.25 / 751.25 Lab / Micro Data 03/26/25 07:04 03/26/25 07:04 Labs: Laboratory Results - last 24 hr 03/25/25 11:50: POC Glucose 202 H 03/25/25 16:49: POC Glucose 240 H 03/25/25 22:06: POC Glucose 258 H 03/26/25 06:29: POC Glucose 191 H 03/26/25 07:04: WBC 9.7, RBC 3.75 L, Hgb 10.7 L, Hct 32.7 L, MCV 87.2, MCH 28.5, MCHC 32.7, RDW Std Deviation 49.3 H, RDW Coeff of Amos 15.4 H, Plt Count 382, MPV 9.1, Immature Gran % (Auto) 0.700, Neut % (Auto) 66.2, Lymph % (Auto) 23.0, [place] % (Auto) 5.7, Eos % (Auto) 3.7, Baso % (Auto) 0.7, Absolute Neuts (auto) 6.4, Absolute Lymphs (auto) 2.24, Nucleated RBC % 0, Sodium 139, Potassium 3.9, Chloride 105, Carbon Dioxide 22.4, Anion Gap 12, BUN 12, Creatinine 0.64 L, Estim Creat Clear Calc 112.65, Est GFR (MDRD) Non-Af 101, BUN/Creatinine Ratio 17.9, Glucose 183 H, Calcium 8.9 Micro: Microbiology 03/22/25 13:40 Incision/Surgical Site Gram Stain - Final 03/22/25 13:40 Incision/Surgical Site Wound Culture - Preliminary No growth-Final to follow 03/22/25 13:40 Incision/Surgical Site Anaerobic Culture - Preliminary No growth in 48 hours. Physical Exam Narrative General: Alert, Oriented x3, Cooperative, No apparent distress HEENT: Atraumatic, PERRLA, EOMI, Normocephalic Oral: Moist Mucosa Neck: Supple, No JVD Lungs: Diminished, Normal air movement, No rhonchi, No wheeze, No rales Cardiovascular: Regular rate, Regular Rhythm, Normal S1, Normal S2, No murmurs Abdomen: Soft, Non Tender, Non-Distended, No Hepato-splenomegaly Extremities: No edema, Capillary Refill Less than 3 Seconds Skin: Right lower extremity packing was removed today with old clot that was evacuated no obvious signs of infection Musculoskeletal: No Tenderness to Palpation of Joints or Extremities Neurological: No focal neurological deficits, moves all extremities, sensations diminished Psych/Mental Status: Normal Affect, Appropriate Assessment & Plan Assessment/Plan (1) Infected hematoma: (2) Diabetes mellitus type 2, uncontrolled: PLAN: Plan 1. Infected hematoma in the setting of type 2 diabetes with Charcot foot status postsurgical intervention on 03/23/2025 ? Appreciate infectious disease assistance, continue with broad-spectrum antibiotics pending wound cultures ? Sliding scale insulin ? Accu-Cheks ? Will monitor make adjustments as necessary, on discharge she can likely resume her home insulin medications ? Continue with long-acting insulin ? She was on Augmentin and doxycycline for this issue as an outpatient 2. Narcolepsy ? Stable ? Unfortunately her medication is nonformulary but she is okay with not taking it while here 3. Hypothyroidism ? Stable ? Continue with her home medications DVT: Lovenox Will sign off, please reconsult if necessary Charges/Coding Visit Charges Inpatient E&M: 41784 Subs Hosp L2
--- NOTE | 2025-03-26 09:45 | CASEMGMT ---
Received tc from Deepa at [facility], they are unable to accept pt for services.
[2025-03-26 10:16] VITALS: BP 118/65; PULSE 81; RESP 16; TEMP 36.8; O2SAT 96
--- NOTE | 2025-03-26 10:24 | WOUNDNOTE ---
wound photo: right foot
--- NOTE | 2025-03-26 10:25 | WOUNDNOTE ---
wound photo: right foot
--- NOTE | 2025-03-26 10:25 | WOUNDNOTE ---
wound photo: right foot
[2025-03-26] MEDS: Linezolid 600 MG 600 MG/300 ML BAG 200 MG IV ×2 (10:30→22:32)
[2025-03-26] MEDS: Insulin Glargine-YFGN 100 UNIT/ML Pen 29 UNIT SC ×2 (10:31→22:46)
--- NOTE | 2025-03-26 12:42 | CASEMGMT ---
RN CM into pt room, pt sitting up in bed. Pt states that ID rounded and she likely will not need IV atb. She states that ID was planning on speaking with Dr. Lewis as well. Discussed with pt if she still wanted HHC if she did not need IV atb as it is noted that her dtr does her wound care. Pt states she still would like HHC. She is aware that [facility] is unable to accept her and that a referral will be sent to [facility] as her next choice. Pt states her third choice would be [facility]. She states if either of those do not accept her then she would not want any further HHC options explored. Pt is aware that the referral could be sent to the rest of the options on her list and she be made aware if any accept. Pt declined this. Requested dc expanded duty dental assistant send referral to [facility] and [facility] if they decline.
--- NOTE | 2025-03-26 13:06 | CASEMGMT ---
Addendum entered by Sultana Obrien 03/26/25 16:24: [facility] has declined and [facility] accepted. RN CM updated. Sultana Obrien DC Planning Asst. Original Note: Discharge Planning HH referral sent via [facility] to [facility] and [facility]. Sultana Obrien DC Planning Asst.
--- NOTE | 2025-03-26 13:33 | PCM.CONS.GEN ---
Assessment & Plan Assessment/Plan (1) Infected hematoma: PLAN: Now s/p OR 03/23/[address] Lewis for I&D. Had been on doxy and augmentin as outpt. Surg cx neg so far with neg gram stain. No recorded fevers here. Discussed options with her, will plan on 2 weeks po linezolid and augmentin at discharge, ID followup in 1-2 weeks. D/w Dr. Lewis. Will follow, thank you (2) Diabetes mellitus type 2, uncontrolled: HPI Consult Data Date of Consult: 03/26/25 HPI Narrative Reason for Consultation: foot infection HPI Narrative: FREEMAN MOCTEZUMA, is a 59 F with DM neuropathy, Charcot R foot, has been on po doxy and augmentin for R foot osteo. Had worsening of wound with increased pain over past month. MRI was done, showed possible abscess. Taken to OR 03/[address] Lewis for I&D of hematoma. Had been having some associated fever and chills at home and here. On linezolid and zosyn currently, overall feeling better. Full ROS performed and neg except as noted above. [facility] Medical History History of echocardiogram Loose, teeth Thyroid disease Hypotension Post-menopausal Back pain Injury of head and neck Dietary restriction Type 2 diabetes mellitus with foot ulcer Diabetes Former smoker Asthma Chronic ulcer of right foot due to diabetes mellitus Non-pressure 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 Infectious tenosynovitis Cellulitis of right lower limb MRSA bacteremia Acute osteomyelitis of left foot Diabetes mellitus with diabetic polyneuropathy Charcot's joint of right foot Narcolepsy Sleep disorder Allergies Hypothyroidism History of MRSA infection Weakness COVID-19 DKA, type 2 Malnutrition 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 Home Medications ?Medication ?Instructions ?Recorded ?Last Taken ?Type montelukast 10 mg tablet 10 mg PO QHS allergy 09/25/16 03/22/25 History (Singulair) ibuprofen 200 mg tablet (Advil) 400 mg PO BID pain 05/21/21 03/19/25 History levocetirizine 5 mg tablet 1 tab PO DAILY PRN Allergies 11/22/21 03/22/25 History levothyroxine 112 mcg tablet 112 mcg PO DAILY thyroi 02/09/24 03/22/25 History amoxicillin 500 mg-potassium 1 tab PO BID 08/28/24 03/22/25 History clavulanate 125 mg tablet armodafinil 250 mg tablet 150 mg PO BID narcalepsy 08/28/24 03/22/25 History baclofen 10 mg tablet 10 mg PO TID 08/28/24 03/22/25 History estradiol 0.01% (0.1 mg/gram) 1 appful vaginal SUWE estrogen 08/28/24 03/21/25 History vaginal cream liothyronine 25 mcg tablet 12.5 mcg PO DAILY 08/28/24 03/22/25 History doxycycline hyclate 100 mg capsule 100 mg PO BID 03/22/25 03/22/25 History insulin glargine-yfgn 100 unit/mL 29 unit subcut BID 03/22/25 03/22/25 20:00 History (3 mL) subcutaneous pen 14 unit Allergy/AdvReac Type Severity Reaction Status Date / Time latex Allergy Mild Rash Verified 03/23/25 12:00 clindamycin Allergy Hives Verified 03/23/25 11:56 pregabalin (From Lyrica) Allergy Swelling Verified 03/23/25 11:56 bee venom protein (honey bee) AdvReac Anaphylaxis Verified 03/23/25 11:56 vancomycin AdvReac Other Verified 03/23/25 11:56 Family History Father CVA (cerebral vascular accident) Clotting disorder Seizures Mother Osteoarthritis Other Charcot's joint of right foot Diabetes Heart disease Hypertension Non-pressure chronic ulcer of other part of right foot with fat layer exposed Non-pressure 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 Type 2 diabetes mellitus with diabetic polyneuropathy Type 2 diabetes mellitus with foot ulcer Surgical History H/O uvulectomy History of incision and drainage (~02/10/24) History of incision and drainage S/P nasal septoplasty S/P right knee arthroscopy History of back surgery S/P tonsillectomy and adenoidectomy History of cholecystectomy History of ankle surgery Social History Smoking Status: Former smoker how long ago did patient quit smoking: Quit 1981. alcohol intake: current alcohol intake frequency: holidays/special occasions only substance use type: does not use Physical Exam Const alert, oriented x3 and no apparent distress General Appearance: cooperative HEENT normocephalic and head/scalp atraumatic Eyes PERRL and EOMs intact bilaterally Neck supple and No nodes Resp normal air movement and clear to auscultation bilaterally Cardio regular rate and regular rhythm GI soft to palpation, non-tender and non-distended Extremity General Extremity: Negative for edema Skin Skin Narrative: wound vac in place R foot Neuro CN's II-XII intact bilaterally Lab / Micro Data Attestation: I reviewed the patient's lab results. 03/26/25 07:04 03/26/25 07:04 Labs: Laboratory Results - last 24 hr 03/25/25 16:49: POC Glucose 240 H 03/25/25 22:06: POC Glucose 258 H 03/26/25 06:29: POC Glucose 191 H 03/26/25 07:04: WBC 9.7, RBC 3.75 L, Hgb 10.7 L, Hct 32.7 L, MCV 87.2, MCH 28.5, MCHC 32.7, RDW Std Deviation 49.3 H, RDW Coeff of Amos 15.4 H, Plt Count 382, MPV 9.1, Immature Gran % (Auto) 0.700, Neut % (Auto) 66.2, Lymph % (Auto) 23.0, [place] % (Auto) 5.7, Eos % (Auto) 3.7, Baso % (Auto) 0.7, Absolute Neuts (auto) 6.4, Absolute Lymphs (auto) 2.24, Nucleated RBC % 0, Sodium 139, Potassium 3.9, Chloride 105, Carbon Dioxide 22.4, Anion Gap 12, BUN 12, Creatinine 0.64 L, Estim Creat Clear Calc 112.65, Est GFR (MDRD) Non-Af 101, BUN/Creatinine Ratio 17.9, Glucose 183 H, Calcium 8.9 03/26/25 11:49: POC Glucose 243 H Micro: Microbiology 03/22/25 13:40 Incision/Surgical Site Gram Stain - Final 03/22/25 13:40 Incision/Surgical Site Wound Culture - Preliminary 03/22/25 13:40 Incision/Surgical Site Anaerobic Culture - Preliminary No growth in 48 hours.
[2025-03-26 13:56] VITALS: BP 127/61; PULSE 89; RESP 16; TEMP 36.6; O2SAT 95
[2025-03-26 20:04] VITALS: BP 126/66; PULSE 88; RESP 16; TEMP 37.1; O2SAT 96
[2025-03-26] MEDS: 0.9% Saline Lock 10 ML Syringe IV (20:12)
[2025-03-26 22:30] VITALS: BP 116/72; PULSE 84; RESP 18; TEMP 37.1; O2SAT 96
[2025-03-27 02:22] VITALS: BP 112/56; PULSE 68; RESP 14; TEMP 36.7; O2SAT 94
[2025-03-27] MEDS: Piperacil/Tazobactam 3.375 GM in 0.9% Normal Saline (50mL MB+) 50 ML IV (06:15)
[2025-03-27 09:48] VITALS: BP 119/55; PULSE 77; RESP 16; TEMP 36.4; O2SAT 96
[2025-03-27] MEDS: Insulin Glargine-YFGN 100 UNIT/ML Pen 29 UNIT SC (09:56)
[2025-03-27] MEDS: Linezolid 600 MG 600 MG/300 ML BAG 200 MG IV (11:00)
--- NOTE | 2025-03-27 11:05 | CASEMGMT ---
Addendum entered by Olivia Darden 03/27/25 13:35: Pt is aware that the dc order is placed. TC to [facility], per Reji, no copay or PA needed for linezolid. He is aware that pt would like meds delivered to the room. Uploaded dc instructions to [facility] and sent at this time. Original Note: Sent wound care orders and updated HHC order to [facility] and made aware this RN RONNIE reached out to poditatry to confirm dc this date. BERTA TRUJILLO made pt aware of acceptance by [facility]. Message sent to Dr. Lewis to confirm that pt will dc today and to make aware that C is set up. Spoke with ID this morning and pt will dc on po atb. Pt would like meds delivered to the room.
--- NOTE | 2025-03-27 13:15 | PCM.DC.SUM ---
Providers Date of Admission: 03/23/25 Date of Discharge: 03/27/25 Primary Care Physician: Dr. Cuong Barros MD Consultations 03/23/25 12:58 Consult: Hospitalist Routine Consulting Provider: Luis Miguel Green Reason for Consult: Diabetic management EMERGENT Consult: No Notified: Yes Date Notified: 03/23/25 Time Notified: 16:35 Method of Notification: Text 03/23/25 12:59 Consult: Infectious Disease Routine Consulting Provider: Mehul Rubio Reason for Consult: Manage IV antibiotics and PICC line EMERGENT Consult: No Notified: Yes Date Notified: 03/23/25 Time Notified: 15:57 Method of Notification: Verbal Consult: Onc/Wound/computer systems integrator Routine Comment: Reason for Consult:: Incision site management/dressings assistance Reason For Visit: Right foot Incision and Drainage Diagnosis Discharge Diagnosis (1) Infected hematoma: Status: Acute Code(s): T14.8XXA - Other injury of unspecified body region, initial encounter; L08.9 - Local infection of the skin and subcutaneous tissue, unspecified (2) Diabetes mellitus type 2, uncontrolled: Status: Acute Plan Patient seen and evaluated She is s/p I&D of possible infected hematoma of the Right foot. DOS: 03/23/25. POD # 3 Site inspected. Sutures intact to plantar foot. No signs of infection. Iodoform packing intact between region of sutures at proximal foot. No purulence could be expressed proximally to the packing site following removal. However there was expressible blood following removal of the packing. Procedure on 03/23 was performed in which it is noted no purulent drainage was expressible during entire time of procedure however there was noa blood in addition to coagulated blood and fat with chronic inflammatory changes of the surrounding tissue with consideration given to infected hematoma secondary to continued Charcot changes of the foot. She will continue IV antibiotics. Linezolid and [facility] Medicine team following for aiding in medical management, their collaboration greatly appreciated Infectious disease following for management of IV antibiotics in addition to PICC line placement Current dressings on the foot are Betadine soaked Adaptic, 4 x 4 gauze, ABD x 3, Kerlix x 2, 4 inch Sebastian wrap and 6 inch Sebastian wrap rolled onto the right foot. Nursing to change daily. She is to continue nonweightbearing status to the right lower extremity due to incision placement with assistance of walker. I will continue to monitor. Once stable and PICC line placed she may be d/c home with home health to assist in dressing changes. Jason Lewis Jr. D.P.M. [facility] [phone] Medications at Discharge Home Medications montelukast 10 mg tablet (Singulair) 10 mg PO QHS allergy 09/25/16 ibuprofen 200 mg tablet (Advil) 400 mg PO BID pain 05/21/21 levocetirizine 5 mg tablet 1 tab PO DAILY PRN Allergies 11/22/21 levothyroxine 112 mcg tablet 112 mcg PO DAILY thyroi 02/09/24 amoxicillin 500 mg-potassium clavulanate 125 mg tablet 1 tab PO BID 08/28/24 armodafinil 250 mg tablet 150 mg PO BID narcalepsy 08/28/24 baclofen 10 mg tablet 10 mg PO TID 08/28/24 estradiol 0.01% (0.1 mg/gram) vaginal cream 1 appful vaginal SUWE estrogen 08/28/24 liothyronine 25 mcg tablet 12.5 mcg PO DAILY 08/28/24 doxycycline hyclate 100 mg capsule 100 mg PO BID 03/22/25 Held on 03/27/25. Instructions: Resume on 04/06/25. hold doxy while on po linezolid insulin glargine-yfgn 100 unit/mL (3 mL) subcutaneous pen 29 unit subcut BID 03/22/25 linezolid 600 mg tablet 600 mg PO Q12H 12 days #24 tabs 03/27/25 Hospital Course Operations - (I&D of hematoma Right foot) Procedures None Summary of Care Provided Hospital Course: Patient is a 59 year old female who presented to [facility] following I&D of hematoma of the Right annmarie on 03/23/25. Cultures were obtained during procedure and negative for organism growth. Following procedure she did have site packed with iodoform packing gauze and placement of 2g Vancomycin powder throughout the tissues of the plantar foot. Site was closed. She did continue IV antibiotics upon admission, Linezolid and Zosyn through the weekend. She was seen by Infectious disease who recommended 2 week course of oral antibiotics upon discharge, Linezolid and Augmentin. Hospitalist team consulted for medical management of diabetes during stay. Packing gauze was pulled on 03/26/25 with some expressible blood from the site. She is to be discharged on 03/27/25 home with assistance of home health for dressing changes. She was non-weight bearing with assistance of walker due to incision placement and had done well with this under guidance of physical therapy. She will continue to follow in office for post-operative dressing changes. Physical Exam Const alert, oriented x3 and no apparent distress General Appearance: cooperative Eyes General Eye: normal appearance of both eyes Neck General: normal visual inspection Lymph Lymphatic: no lymphadenopathy noted and no lymphedema noted Resp normal respiratory effort Cardio regular rate and regular rhythm Extremity no calf tenderness Extremity Narrative: Right lower extremity: Vascular: DP and PT pulses palpable. CFT is less than 5 seconds digits. Normal temperature gradient. Hair growth to digits is diminished. Neurologic: Gross sensation is intact. Protective sensation is absent to the foot secondary to diabetic peripheral polyneuropathy. Musculoskeletal: Charcot foot deformity is appreciated to the right foot with rocker-bottom deformity and breakdown appreciated about the Lisfranc and Chopart joints. Muscle strength is 5/5 age-appropriate. There is decreased range of motion of the ankle joint dorsiflexion with knee extended without pain or crepitus. There is hypermobility at the Lisfranc/Chopart joint secondary to Charcot deformity and breakdown. No pain to palpation about the midfoot overlying the Charcot defect or about the plantar foot. Dermatologic: Sutures intact to plantar foot. No signs of infection. Iodoform packing intact between region of sutures at proximal foot. No purulence could be expressed proximally to the packing site following removal. However there was expressible blood. Skin no rashes or lesions noted Neuro moves all extremities Weight / BMI Weight Weight: 95 kg Body Mass Index (BMI) 31.8 ABG / Lab / Microbiology Data 03/26/25 07:04 03/26/25 07:04 Laboratory: Laboratory Results - last 24 hr 03/26/25 16:17: POC Glucose 180 H 03/26/25 22:46: POC Glucose 191 H 03/27/25 07:20: POC Glucose 161 H 03/27/25 11:54: POC Glucose 178 H Microbiology: Microbiology 03/22/25 13:40 Incision/Surgical Site Gram Stain - Final 03/22/25 13:40 Incision/Surgical Site Wound Culture - Preliminary 03/22/25 13:40 Incision/Surgical Site Anaerobic Culture - Preliminary No growth in 48 hours. D/C Instructions Discharge Activity: May Shower (Please utilize cast bag when showering to keep dressings clean, dry, and intact to Right foot while seated on shower chair.) and Use Walker (Continue non-weight bearing status with assistance of walker to right foot) Weight Bearing Status: No weight bearing (Please remain non-weight bearing to the Right foot with assistance of walker) Keep extremity elevated above heart level: Right Leg (Continue to elevate Right lower extremity at all times of rest for post-operative edema control) Call your doctor if you observe: Fever of 101 or Higher, Shortness of breath, Chest pain and Calf discomfort Change Dressing in: do not change dressing (Home health will assist in dressing changes) Remove Dressing in: do not remove dressing (Home health with assist in dressing changes daily.) Cleanse incision/area with: Do not get Incision Wet and Keep Dressing Clean & Dry (Do not get wet. Keep all dressings clean, dry, and intact to the Right foot. Utilize cast bag when seated and showering to maintain compliance) DC O2, CPAP, BIPAP Needs Home O2 Discharge instructions: No DC home with Oxygen: No Please Follow Up With: Jason Lewis DPM When: Follow up in office in 1 week Meaningful Use Info Meaningful Use Meaningful Use Diagnoses (Choose all that apply): None applicable Discharge Plan Admission Admit Date/Time: 03/23/25 13:07 Attending Provider: Jason Lewis Primary Care Provider: Cuong Barros Consulting Providers: Mehul Rubio; Horacio Bravo Discharge Orders/Prescriptions Prescriptions: New linezolid 600 mg tablet 600 mg PO Q12H 12 Days Qty: 24 0RF Continued amoxicillin-pot clavulanate 500-125 mg tablet 1 tab PO BID Held doxycycline hyclate 100 mg capsule 100 mg PO BID Hold Instructions: Resume on 04/06/25. hold doxy while on po linezolid No Action montelukast [Singulair] 10 MG tablet 10 mg PO QHS ibuprofen [Advil] 200 mg Tablet 400 mg PO BID levocetirizine 5 mg tablet 1 tab PO DAILY PRN (Reason: Allergies) levothyroxine 112 mcg tablet 112 mcg PO DAILY insulin glargine-yfgn 100 unit/mL (3 mL) Insulin Pen 29 unit subcut BID liothyronine 25 mcg tablet 12.5 mcg PO DAILY estradiol 0.01 % (0.1 mg/gram) cream 1 appful vaginal SUWE Rx Instructions: 1 appl bid wd and casiano armodafinil 250 mg tablet 150 mg PO BID Rx Instructions: take 1 tab in am than may repeat again at noon if driving somewhere that will need to stay alert. baclofen 10 mg tablet 10 mg PO TID Referrals / Follow Up: Cuong Barros MD [Primary Care Provider, Medical] Disposition Disposition (needs filled in before D/C Order can be placed): Home, Self Care
== END 2025-03-27 14:29 | disposition home health service (06) | DRG 380 ==
LOC: SDC 16:00 → MS3 16:00
PROVIDERS: Admitting Provider Student in an Organized Health Care Education/Training Program; PCP Family Medicine; Referring Provider Student in an Organized Health Care Education/Training Program; Visit Provider Student in an Organized Health Care Education/Training Program
PROC: 0JBQ0ZZ Excision of Right Foot Subcutaneous Tissue and Fascia, Open Approach (ICD-10-PCS; principal; 2025-03-23 12:50)
DX: E11.621 Type 2 diabetes mellitus with foot ulcer (principal); L97.513 Non-pressure chronic ulcer of other part of right foot with necrosis of muscle; E03.9 Hypothyroidism, unspecified; E11.42 Type 2 diabetes mellitus with diabetic polyneuropathy; G47.419 Narcolepsy without cataplexy; Z79.4 Long term (current) use of insulin; E11.610 Type 2 diabetes mellitus with diabetic neuropathic arthropathy; S90.31XA Contusion of right foot, initial encounter; L08.9 Local infection of the skin and subcutaneous tissue, unspecified; Z79.899 Other long term (current) drug therapy; Z86.16 Personal history of COVID-19; Z87.891 Personal history of nicotine dependence; X58.XXXA Exposure to other specified factors, initial encounter
CPT/HCPCS: 36415; 80048; 82962; 83036; 85025; 87015; 87070; 87075; 87077; 87102; 87116; 87205; 87206; 88304; 97110; 97116; 97162; 97530; 97802; J2020; A4216; J2405